=== PATIENT | male | born 1955 | race Caucasian/White ===

== ENCOUNTER 2017-04-15 10:30 | Outpatient (RCR) | payer MEDICARE, MEDICAID, SELFPAY ==
[2017-03-16 00:23] VITALS: BP 159/78; PULSE 76; RESP 20; TEMP 36.5
[2017-03-18 14:51] VITALS: BP 174/81; PULSE 84; RESP 20; TEMP 36.6
--- NOTE | 2017-03-18 17:30 | PCM.WC.PN ---
(1) Chronic ulcer of left foot with fat layer exposed Status: Chronic Current Visit: Yes Code(s): L97.522 - Non-pressure chronic ulcer of other part of left foot with fat layer exposed (2) Ulcer of right lower extremity with fat layer exposed Status: Chronic Current Visit: Yes Code(s): L97.912 - Non-pressure chronic ulcer of unspecified part of right lower leg with fat layer exposed (3) Ulcer of right lower extremity with fat layer exposed Status: Chronic Current Visit: Yes Code(s): L97.912 - Non-pressure chronic ulcer of unspecified part of right lower leg with fat layer exposed (4) Type 2 diabetes mellitus with diabetic polyneuropathy Status: Chronic Current Visit: Yes Code(s): E11.42 - Type 2 diabetes mellitus with diabetic polyneuropathy (5) Malnutrition Status: Chronic Current Visit: Yes Code(s): E46 - Unspecified protein-calorie malnutrition (6) Lower extremity edema Status: Chronic Current Visit: Yes Code(s): R60.0 - Localized edema Type of Wound Date of Service: 03/18/17 Chief Complaint: Right heel ulcer with delayed healing. 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 right leg ulcers History of Wound: This 61 year old male was seen for right heel ulcer with chronic osteomyelitis and for left s/p transmetatarsal amputation with complex closure and percutaneous achilles tendon lengthening performed on 08/05/2016. He denies pain. He denies fever, chill, nausea, vomiting. He reports he fired his home health and his girlfriend is changing his wound dressings. Progress of Wound: Improving bilateral foot. Improving ulcers to right leg - Physical Exam Vital Signs Temp Pulse Resp BP 97.8 F 84 20 H 174/81 H 03/18/17 14:51 03/18/17 14:51 03/18/17 14:51 03/18/17 14:51 General: Alert, Oriented x3, Cooperative Extremities: No cyanosis, Capillary Refill Less than 3 Seconds, No Calf Tenderness - Negative Keara and Simmons sign bilateral, Diminished Peripheral Pulses, Edema - Lateral lower extremities deep Skin: Ulcer/ Wound - No purulence, no erythema, no streaking, no maceration, no necrosis, no acute signs of infection bilateral. No exposed deep bone or other tissue. His skin is atrophic and hairless bilateral Wound Measurements and Assessment - Nurse 1 - General Ulcer Measurement Start: 03/18/17 14:50 Freq: Status: Active Protocol: Activity Type Activity Date Activity User E-Sign Co-Sign Detail Recorded Client Recorded Date Recorded By Document 03/18/17 14:51 DL [id number] 03/18/17 15:09 DL 03/18/17 14:51 Wound Center Nurse 1 [Ulcer Assessment Protocol: XIMENA.WD.LOC] 8-right cluster bernstein -Current Size (cm) - Length 2 -Current Size (cm) - Width 2.3 -Current Size (cm) - Depth 0.2 -Total Square Cm 4.6 -Photo Taken No -Exudate Amt Small (1-33%) -Exudate Type Serosanguineous -Wound Margin Distinct, Outline Attached -Granulation Amt Large (67-100%) -Granulation Quality Slater[place] -Necrosis Amt Small (1-33%) -Necrotic Tissue Type Adherent Slough -Structure Exposed N/A -Texture (Susy-wound Skin Appearance) Scarring -Moisture (Susy-wound Skin Appearance Dry/Scaly ) -Color (Susy-wound Skin Appearance) Hemosiderin Staining -Temperature (Susy-wound Skin No Abnormality Appearance) (Pt Warm) -Ulcer Cleansing Wound Cleanser -Foul Odor after Cleansing No -Anesthetic Used 4% Lidocaine Solution #4 Left central TMA -Current Size (cm) - Length 0.4 -Current Size (cm) - Width 0.3 -Current Size (cm) - Depth 0.1 -Total Square Cm 0.12 -Photo Taken No -Exudate Amt Small (1-33%) -Exudate Type Serosanguineous -Wound Margin Distinct, Outline Attached -Granulation Amt Small (1-33%) -Granulation Quality [place] -Necrosis Amt Small (1-33%) -Necrotic Tissue Type Adherent Slough -Structure Exposed N/A -Texture (Susy-wound Skin Appearance) Scarring -Moisture (Susy-wound Skin Appearance No Abnormality ) Dry/Scaly -Color (Susy-wound Skin Appearance) No Abnormality -Temperature (Susy-wound Skin No Abnormality Appearance) (Pt Warm) -Ulcer Cleansing Wound Cleanser -Foul Odor after Cleansing No -Anesthetic Used 4% Lidocaine Solution #1 right medial heel -Current Size (cm) - Length 1.5 -Current Size (cm) - Width 4.2 -Current Size (cm) - Depth 0.2 -Total Square Cm 6.30 -Photo Taken No -Exudate Amt Small (1-33%) -Exudate Type Serosanguineous -Wound Margin Thickened -Granulation Amt Medium (34-66%) -Granulation Quality [place] -Necrosis Amt Medium (34-66%) -Necrotic Tissue Type Adherent Slough -Structure Exposed N/A -Texture (Susy-wound Skin Appearance) Scarring -Moisture (Susy-wound Skin Appearance Maceration ) -Color (Susy-wound Skin Appearance) No Abnormality -Temperature (Susy-wound Skin No Abnormality Appearance) (Pt Warm) -Ulcer Cleansing Wound Cleanser -Foul Odor after Cleansing No -Anesthetic Used 4% Lidocaine Solution [Edema Assessment] -Right Calf (cm) 45.2 -Right Ankle (cm) 27.2 -Left Calf (cm) 47 -Left Ankle (cm) 26.2 WC - Nurse 2 - General Ulcer CM Notes Start: 03/18/17 14:50 Freq: Status: Active Protocol: Activity Type Activity Date Activity User E-Sign Co-Sign Detail Recorded Client Recorded Date Recorded By Document 03/18/17 15:18 [id number] 03/18/17 15:33 TM 03/18/17 15:18 Wound Center Nurse 2 [Procedure/Treatment] 8-right cluster bernstein -Time 15:29 -Correct Patient Yes -Correct Side, Site, Position Yes -Correct Procedure Yes -Procedure Performed Yes -Type of Procedure Debridement -Clinical Debridement Subcutaneous -Post Debridement Size (cm) - Length 2.1 -Post Debridement Size (cm) - Width 2.4 -Post Debridement Size (cm) - Depth 0.2 -Total Square Cm 5.04 -Wound/Ulcer Outcome Not Healed -Ulcer Cleansing Rinsed/ Irrigated with Saline -Foul Odor after Cleansing No -Bioengineered Tissue Yes -Type of bioengineered Tissue [id number] -Expiration Date 07/07/18 -Product Lot Number [id number] -Percent Used 33 -Saline Lot Number [id number] -Cetacaine [place] No -Topical Lidocaine (%) 5 -Bleeding Controlled with Pressure -Treatment Response Procedure Tolerated Well #4 Left central TMA -Time 15:30 -Correct Patient Yes -Correct Side, Site, Position Yes -Correct Procedure Yes -Procedure Performed Yes -Type of Procedure Debridement -Clinical Debridement Subcutaneous -Post Debridement Size (cm) - Length 0.5 -Post Debridement Size (cm) - Width 0.4 -Post Debridement Size (cm) - Depth 0.1 -Total Square Cm 0.20 -Wound/Ulcer Outcome Not Healed -Ulcer Cleansing Rinsed/ Irrigated with Saline -Foul Odor after Cleansing No -Bioengineered Tissue Yes -Type of bioengineered Tissue [id number] -Expiration Date 07/07/18 -Product Lot Number [id number] -Percent Used 33 -Saline Lot Number [id number] -Cetacaine [place] No -Topical Lidocaine (%) 5 -Bleeding Controlled with Pressure -Treatment Response Procedure Tolerated Well #1 right medial heel -Time 15:31 -Correct Patient Yes -Correct Side, Site, Position Yes -Correct Procedure Yes -Procedure Performed Yes -Type of Procedure Debridement -Clinical Debridement Subcutaneous -Post Debridement Size (cm) - Length 1.6 -Post Debridement Size (cm) - Width 4.3 -Post Debridement Size (cm) - Depth 0.2 -Total Square Cm 6.88 -Wound/Ulcer Outcome Not Healed -Ulcer Cleansing Rinsed/ Irrigated with Saline -Foul Odor after Cleansing No -Bioengineered Tissue Yes -Type of bioengineered Tissue [id number] -Expiration Date 07/07/18 -Product Lot Number [id number] -Percent Used 33 -Saline Lot Number [id number] -Cetacaine [place] No -Topical Lidocaine (%) 5 -Bleeding Controlled with Pressure -Treatment Response Procedure Tolerated Well [See Physician Procedure note for Specifics] Pain Scale: 0-10 Numeric [Pain] -Is Patient Pain Free? Yes Musculoskeletal: No Tenderness to Palpation of Joints or Extremities, Muscle Wasting, - - Left transmetatarsal amputation Neurological: - - Lack of epicritic sensation light touch bilateral lower extremities Psych/Mental Status: Normal Affect, Appropriate Debridement Note Post-Debridement Measurements/Treatment WC - Nurse 2 - General Ulcer CM Notes Start: 03/18/17 14:50 Freq: Status: Active Protocol: Activity Type Activity Date Activity User E-Sign Co-Sign Detail Recorded Client Recorded Date Recorded By Document 03/18/17 15:18 TM [id number] 03/18/17 15:33 TM 01/03/18 15:18 Wound Center Nurse 2 8-right cluster bernstein -Time 15:29 -Correct Patient Yes -Correct Side, Site, Position Yes -Correct Procedure Yes -Procedure Performed Yes -Type of Procedure Debridement -Clinical Debridement Subcutaneous -Post Debridement Size (cm) - Length 2.1 -Post Debridement Size (cm) - Width 2.4 -Post Debridement Size (cm) - Depth 0.2 -Total Square Cm 5.04 -Wound/Ulcer Outcome Not Healed -Ulcer Cleansing Rinsed/ Irrigated with Saline -Foul Odor after Cleansing No -Bioengineered Tissue Yes -Type of bioengineered Tissue [id number] -Expiration Date 07/07/18 -Product Lot Number [id number] -Percent Used 33 -Saline Lot Number [id number] -Cetacaine [place] No -Topical Lidocaine (%) 5 -Bleeding Controlled with Pressure -Treatment Response Procedure Tolerated Well #4 Left central TMA -Time 15:30 -Correct Patient Yes -Correct Side, Site, Position Yes -Correct Procedure Yes -Procedure Performed Yes -Type of Procedure Debridement -Clinical Debridement Subcutaneous -Post Debridement Size (cm) - Length 0.5 -Post Debridement Size (cm) - Width 0.4 -Post Debridement Size (cm) - Depth 0.1 -Total Square Cm 0.20 -Wound/Ulcer Outcome Not Healed -Ulcer Cleansing Rinsed/ Irrigated with Saline -Foul Odor after Cleansing No -Bioengineered Tissue Yes -Type of bioengineered Tissue [id number] -Expiration Date 07/07/18 -Product Lot Number [id number] -Percent Used 33 -Saline Lot Number [id number] -Cetacaine [place] No -Topical Lidocaine (%) 5 -Bleeding Controlled with Pressure -Treatment Response Procedure Tolerated Well #1 right medial heel -Time 15:31 -Correct Patient Yes -Correct Side, Site, Position Yes -Correct Procedure Yes -Procedure Performed Yes -Type of Procedure Debridement -Clinical Debridement Subcutaneous -Post Debridement Size (cm) - Length 1.6 -Post Debridement Size (cm) - Width 4.3 -Post Debridement Size (cm) - Depth 0.2 -Total Square Cm 6.88 -Wound/Ulcer Outcome Not Healed -Ulcer Cleansing Rinsed/ Irrigated with Saline -Foul Odor after Cleansing No -Bioengineered Tissue Yes -Type of bioengineered Tissue [id number] -Expiration Date 07/07/18 -Product Lot Number [id number] -Percent Used 33 -Saline Lot Number [id number] -Cetacaine [place] No -Topical Lidocaine (%) 5 -Bleeding Controlled with Pressure -Treatment Response Procedure Tolerated Well Pain Scale: 0-10 Numeric Is Patient Pain Free? Yes Wound debrided: Transmetatarsal amputation stump site Laterality: Left Wound Grade/Stage: Grade 1 Type of Debridement: Excisional debridement Anesthesia Used: 4% Lidocaine Solution Depth: in the subcutaneous layer Percentage of wound debrided: 100 Instrument Used: 5mm curette Tissue Removed: Fibrous, devitalized subcutaneous, biofilm, slough Severity: Fat Layer Exposed Amount of bleeding with debridement: Mild Bleeding Controlled with: Pressure Patient tolerated procedure well - Additional Wound Wound debrided: Posterior plantar heel Laterality: Right Wound Grade/Stage: Grade 3 Type of Debridement: Excisional debridement Anesthesia Used: 4% Lidocaine Solution Depth: in the subcutaneous layer Percentage of wound debrided: 100 Instrument Used: 5mm curette Tissue Removed: Fibrous, devitalized subcutaneous, biofilm, slough Severity: Fat Layer Exposed Amount of bleeding with debridement: Mild Bleeding Controlled with: Pressure Patient tolerated procedure: Patient tolerated procedure well - Additional Wound Wound debrided: Leg Laterality: Right Wound Grade/Stage: Grade 1 Type of Debridement: Excisional debridement Anesthesia Used: 4% Lidocaine Solution Depth: in the subcutaneous layer Percentage of wound debrided: 100 Instrument Used: 5mm curette Tissue Removed: Fibrous, devitalized subcutaneous, biofilm, slough Severity: Fat Layer Exposed Amount of bleeding with debridement: Mild Bleeding Controlled with: Pressure Patient tolerated procedure: Patient tolerated procedure well Assessment/Plan Active Problems Chronic ulcer of left foot with fat layer exposed (Chronic) Ulcer of right lower extremity with fat layer exposed (Chronic) Ulcer of right lower extremity with fat layer exposed (Chronic) Type 2 diabetes mellitus with diabetic polyneuropathy (Chronic) Malnutrition (Chronic) Lower extremity edema (Chronic) Assessment: right leg ulcers-stable. right diabetic heel ulcer with fat exposed and medically treated osteomyelitis of the calcaneus -medically treated. Left foot ulcer with fat exposed. s/p left transmetatarsal amputation with complex closure and percutaneous achilles tendon lengthening performed on 08/05/2016. This was performed secondary to abscess/septic joint/left foot infected ulceration - dehisced and ulcer now central and lateral (considered grade 1). edema/venous insufficiency. diabetic neuropathy. delayed healing / malnutrition. obesity. non compliance Plan: I discussed his case and treatment plan. Subcutaneous excisional debridement of the right heel ulcer, right leg, and left foot ulcer was performed today as noted in the clinical panel. It is noted he completed a full course of advanced wound care product, epifix,application. He was preapproved for puraply, and advanced wound care product with collagen and antimicrobial agent. This was applied after also debridement as noted in the clinical panel, verbal consent, saline irrigation. The product was secured in place with Steri-Strips and wound veil. I recommend continued home nursing care daily change the outer dressing with Aquacel Ag due to his moderate to high level of usual drainage. . To maintain improved skin integrity by applying lac hydrin lotion to both legs daily. Continue circaid wraps bilateral legs daily; it is okay to apply Mateus wrap instead of the CircAid foot wrap to better keep his wound dressings in place. These are temporarily lost during his most recent hospitalization and he has since retrieved these items and resumed use. To continue diuretic medications per primary care physician.To elevate legs at rest. Compliance is imperative and this was discussed again today. To follow-up with Dr. Jimenez as advised for venous intervention after he resumes more walking and loses weight. Input is appreciated for arterial and venous evaluation. To continue with portion control for weight loss and proper glycemic control and nutritional supplementation to optimize healing. His hemoglobin A1c went from 9.0 to 7.4. I previously recommended Vu and a prescription was provided; he was advised to take this twice daily. All of his questions were answered. He understands he is still at risk for limb loss. RTC one week or call sooner if there are problems.
--- NOTE | 2017-03-18 17:35 | PN.PCM_ITS ---
(1) Chronic ulcer of left foot with fat layer exposed Status: Chronic Current Visit: Yes Code(s): L97.522 - Non-pressure chronic ulcer of other part of left foot with fat layer exposed (2) Ulcer of right lower extremity with fat layer exposed Status: Chronic Current Visit: Yes Code(s): L97.912 - Non-pressure chronic ulcer of unspecified part of right lower leg with fat layer exposed (3) Ulcer of right lower extremity with fat layer exposed Status: Chronic Current Visit: Yes Code(s): L97.912 - Non-pressure chronic ulcer of unspecified part of right lower leg with fat layer exposed (4) Type 2 diabetes mellitus with diabetic polyneuropathy Status: Chronic Current Visit: Yes Code(s): E11.42 - Type 2 diabetes mellitus with diabetic polyneuropathy (5) Malnutrition Status: Chronic Current Visit: Yes Code(s): E46 - Unspecified protein- calorie malnutrition (6) Lower extremity edema Status: Chronic Current Visit: Yes Code(s): R60.0 - Localized edema Type of Wound Date of Service: 03/18/17 Chief Complaint: Right heel ulcer with delayed healing. 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 right leg ulcers History of Wound: This 61 year old male was seen for right heel ulcer with chronic osteomyelitis and for left s/p transmetatarsal amputation with complex closure and percutaneous achilles tendon lengthening performed on 08/05/2016. He denies pain. He denies fever, chill, nausea, vomiting. He reports he fired his home health and his girlfriend is changing his wound dressings. Progress of Wound: Improving bilateral foot. Improving ulcers to right leg - Physical Exam Vital Signs Temp Pulse Resp BP 97.8 F 84 20 H 174/81 H 03/18/17 14:51 03/18/17 14:51 03/18/17 14:51 03/18/17 14:51 General: Alert, Oriented x3, Cooperative Extremities: No cyanosis, Capillary Refill Less than 3 Seconds, No Calf Tenderness - Negative Keara and Simmons sign bilateral, Diminished Peripheral Pulses, Edema - Lateral lower extremities deep Skin: Ulcer/ Wound - No purulence, no erythema, no streaking, no maceration, no necrosis, no acute signs of infection bilateral. No exposed deep bone or other tissue. His skin is atrophic and hairless bilateral Wound Measurements and Assessment - Nurse 1 - General Ulcer Measurement Start: 03/18/17 14:50 Freq: Status: Active Protocol: Activity Type Activity Date Activity User E-Sign Co-Sign Detail Recorded Client Recorded Date Recorded By Document 03/18/17 14:51 DL [id number] 03/18/17 15:09 DL 03/18/17 14:51 Wound Center Nurse 1 [Ulcer Assessment Protocol: XIMENA.WD.LOC] 8-right cluster bernstein -Current Size (cm) - Length 2 -Current Size (cm) - Width 2.3 -Current Size (cm) - Depth 0.2 -Total Square Cm 4.6 -Photo Taken No -Exudate Amt Small (1-33%) -Exudate Type Serosanguineous -Wound Margin Distinct, Outline Attached -Granulation Amt Large (67-100%) -Granulation Quality [place] -Necrosis Amt Small (1-33%) -Necrotic Tissue Type Adherent Slough -Structure Exposed N/A -Texture (Susy-wound Skin Appearance) Scarring -Moisture (Susy-wound Skin Appearance Dry/Scaly ) -Color (Susy-wound Skin Appearance) Hemosiderin Staining -Temperature (Susy-wound Skin No Abnormality Appearance) (Pt Warm) -Ulcer Cleansing Wound Cleanser -Foul Odor after Cleansing No -Anesthetic Used 4% Lidocaine Solution #4 Left central TMA -Current Size (cm) - Length 0.4 -Current Size (cm) - Width 0.3 -Current Size (cm) - Depth 0.1 -Total Square Cm 0.12 -Photo Taken No -Exudate Amt Small (1-33%) -Exudate Type Serosanguineous -Wound Margin Distinct, Outline Attached -Granulation Amt Small (1-33%) -Granulation Quality [place] -Necrosis Amt Small (1-33%) -Necrotic Tissue Type Adherent Slough -Structure Exposed N/A -Texture (Susy-wound Skin Appearance) Scarring -Moisture (Susy-wound Skin Appearance No Abnormality ) Dry/Scaly -Color (Susy-wound Skin Appearance) No Abnormality -Temperature (Susy-wound Skin No Abnormality Appearance) (Pt Warm) -Ulcer Cleansing Wound Cleanser -Foul Odor after Cleansing No -Anesthetic Used 4% Lidocaine Solution #1 right medial heel -Current Size (cm) - Length 1.5 -Current Size (cm) - Width 4.2 -Current Size (cm) - Depth 0.2 -Total Square Cm 6.30 -Photo Taken No -Exudate Amt Small (1-33%) -Exudate Type Serosanguineous -Wound Margin Thickened -Granulation Amt Medium (34-66%) -Granulation Quality [place] -Necrosis Amt Medium (34-66%) -Necrotic Tissue Type Adherent Slough -Structure Exposed N/A -Texture (Susy-wound Skin Appearance) Scarring -Moisture (Susy-wound Skin Appearance Maceration ) -Color (Susy-wound Skin Appearance) No Abnormality -Temperature (Susy-wound Skin No Abnormality Appearance) (Pt Warm) -Ulcer Cleansing Wound Cleanser -Foul Odor after Cleansing No -Anesthetic Used 4% Lidocaine Solution [Edema Assessment] -Right Calf (cm) 45.2 -Right Ankle (cm) 27.2 -Left Calf (cm) 47 -Left Ankle (cm) 26.2 WC - Nurse 2 - General Ulcer CM Notes Start: 03/18/17 14:50 Freq: Status: Active Protocol: Activity Type Activity Date Activity User E-Sign Co-Sign Detail Recorded Client Recorded Date Recorded By Document 03/18/17 15:18 [id number] 03/18/17 15:33 TM 03/18/17 15:18 Wound Center Nurse 2 [Procedure/Treatment] 8-right cluster bernstein -Time 15:29 -Correct Patient Yes -Correct Side, Site, Position Yes -Correct Procedure Yes -Procedure Performed Yes -Type of Procedure Debridement -Clinical Debridement Subcutaneous -Post Debridement Size (cm) - Length 2.1 -Post Debridement Size (cm) - Width 2.4 -Post Debridement Size (cm) - Depth 0.2 -Total Square Cm 5.04 -Wound/Ulcer Outcome Not Healed -Ulcer Cleansing Rinsed/ Irrigated with Saline -Foul Odor after Cleansing No -Bioengineered Tissue Yes -Type of bioengineered Tissue [id number] -Expiration Date 07/07/18 -Product Lot Number [id number] -Percent Used 33 -Saline Lot Number [id number] -Cetacaine [place] No -Topical Lidocaine (%) 5 -Bleeding Controlled with Pressure -Treatment Response Procedure Tolerated Well #4 Left central TMA -Time 15:30 -Correct Patient Yes -Correct Side, Site, Position Yes -Correct Procedure Yes -Procedure Performed Yes -Type of Procedure Debridement -Clinical Debridement Subcutaneous -Post Debridement Size (cm) - Length 0.5 -Post Debridement Size (cm) - Width 0.4 -Post Debridement Size (cm) - Depth 0.1 -Total Square Cm 0.20 -Wound/Ulcer Outcome Not Healed -Ulcer Cleansing Rinsed/ Irrigated with Saline -Foul Odor after Cleansing No -Bioengineered Tissue Yes -Type of bioengineered Tissue [id number] -Expiration Date 07/07/18 -Product Lot Number [id number] -Percent Used 33 -Saline Lot Number [id number] -Cetacaine [place] No -Topical Lidocaine (%) 5 -Bleeding Controlled with Pressure -Treatment Response Procedure Tolerated Well #1 right medial heel -Time 15:31 -Correct Patient Yes -Correct Side, Site, Position Yes -Correct Procedure Yes -Procedure Performed Yes -Type of Procedure Debridement -Clinical Debridement Subcutaneous -Post Debridement Size (cm) - Length 1.6 -Post Debridement Size (cm) - Width 4.3 -Post Debridement Size (cm) - Depth 0.2 -Total Square Cm 6.88 -Wound/Ulcer Outcome Not Healed -Ulcer Cleansing Rinsed/ Irrigated with Saline -Foul Odor after Cleansing No -Bioengineered Tissue Yes -Type of bioengineered Tissue [id number] -Expiration Date 07/07/18 -Product Lot Number [id number] -Percent Used 33 -Saline Lot Number [id number] -Cetacaine [place] No -Topical Lidocaine (%) 5 -Bleeding Controlled with Pressure -Treatment Response Procedure Tolerated Well [See Physician Procedure note for Specifics] Pain Scale: 0-10 Numeric [Pain] -Is Patient Pain Free? Yes Musculoskeletal: No Tenderness to Palpation of Joints or Extremities, Muscle Wasting, - - Left transmetatarsal amputation Neurological: - - Lack of epicritic sensation light touch bilateral lower extremities Psych/Mental Status: Normal Affect, Appropriate Debridement Note Post-Debridement Measurements/Treatment WC - Nurse 2 - General Ulcer CM Notes Start: 03/18/17 14:50 Freq: Status: Active Protocol: Activity Type Activity Date Activity User E-Sign Co-Sign Detail Recorded Client Recorded Date Recorded By Document 03/18/17 15:18 TM [id number] 03/18/17 15:33 TM 01/03/18 15:18 Wound Center Nurse 2 8-right cluster bernstein -Time 15:29 -Correct Patient Yes -Correct Side, Site, Position Yes -Correct Procedure Yes -Procedure Performed Yes -Type of Procedure Debridement -Clinical Debridement Subcutaneous -Post Debridement Size (cm) - Length 2.1 -Post Debridement Size (cm) - Width 2.4 -Post Debridement Size (cm) - Depth 0.2 -Total Square Cm 5.04 -Wound/Ulcer Outcome Not Healed -Ulcer Cleansing Rinsed/ Irrigated with Saline -Foul Odor after Cleansing No -Bioengineered Tissue Yes -Type of bioengineered Tissue [id number] -Expiration Date 07/07/18 -Product Lot Number [id number] -Percent Used 33 -Saline Lot Number [id number] -Cetacaine [place] No -Topical Lidocaine (%) 5 -Bleeding Controlled with Pressure -Treatment Response Procedure Tolerated Well #4 Left central TMA -Time 15:30 -Correct Patient Yes -Correct Side, Site, Position Yes -Correct Procedure Yes -Procedure Performed Yes -Type of Procedure Debridement -Clinical Debridement Subcutaneous -Post Debridement Size (cm) - Length 0.5 -Post Debridement Size (cm) - Width 0.4 -Post Debridement Size (cm) - Depth 0.1 -Total Square Cm 0.20 -Wound/Ulcer Outcome Not Healed -Ulcer Cleansing Rinsed/ Irrigated with Saline -Foul Odor after Cleansing No -Bioengineered Tissue Yes -Type of bioengineered Tissue [id number] -Expiration Date 07/07/18 -Product Lot Number [id number] -Percent Used 33 -Saline Lot Number [id number] -Cetacaine [place] No -Topical Lidocaine (%) 5 -Bleeding Controlled with Pressure -Treatment Response Procedure Tolerated Well #1 right medial heel -Time 15:31 -Correct Patient Yes -Correct Side, Site, Position Yes -Correct Procedure Yes -Procedure Performed Yes -Type of Procedure Debridement -Clinical Debridement Subcutaneous -Post Debridement Size (cm) - Length 1.6 -Post Debridement Size (cm) - Width 4.3 -Post Debridement Size (cm) - Depth 0.2 -Total Square Cm 6.88 -Wound/Ulcer Outcome Not Healed -Ulcer Cleansing Rinsed/ Irrigated with Saline -Foul Odor after Cleansing No -Bioengineered Tissue Yes -Type of bioengineered Tissue [id number] -Expiration Date 07/07/18 -Product Lot Number [id number] -Percent Used 33 -Saline Lot Number [id number] -Cetacaine [place] No -Topical Lidocaine (%) 5 -Bleeding Controlled with Pressure -Treatment Response Procedure Tolerated Well Pain Scale: 0-10 Numeric Is Patient Pain Free? Yes Wound debrided: Transmetatarsal amputation stump site Laterality: Left Wound Grade/Stage: Grade 1 Type of Debridement: Excisional debridement Anesthesia Used: 4% Lidocaine Solution Depth: in the subcutaneous layer Percentage of wound debrided: 100 Instrument Used: 5mm curette Tissue Removed: Fibrous, devitalized subcutaneous, biofilm, slough Severity: Fat Layer Exposed Amount of bleeding with debridement: Mild Bleeding Controlled with: Pressure Patient tolerated procedure well - Additional Wound Wound debrided: Posterior plantar heel Laterality: Right Wound Grade/Stage: Grade 3 Type of Debridement: Excisional debridement Anesthesia Used: 4% Lidocaine Solution Depth: in the subcutaneous layer Percentage of wound debrided: 100 Instrument Used: 5mm curette Tissue Removed: Fibrous, devitalized subcutaneous, biofilm, slough Severity: Fat Layer Exposed Amount of bleeding with debridement: Mild Bleeding Controlled with: Pressure Patient tolerated procedure: Patient tolerated procedure well - Additional Wound Wound debrided: Leg Laterality: Right Wound Grade/Stage: Grade 1 Type of Debridement: Excisional debridement Anesthesia Used: 4% Lidocaine Solution Depth: in the subcutaneous layer Percentage of wound debrided: 100 Instrument Used: 5mm curette Tissue Removed: Fibrous, devitalized subcutaneous, biofilm, slough Severity: Fat Layer Exposed Amount of bleeding with debridement: Mild Bleeding Controlled with: Pressure Patient tolerated procedure: Patient tolerated procedure well Assessment/Plan Active Problems Chronic ulcer of left foot with fat layer exposed (Chronic) Ulcer of right lower extremity with fat layer exposed (Chronic) Ulcer of right lower extremity with fat layer exposed (Chronic) Type 2 diabetes mellitus with diabetic polyneuropathy (Chronic) Malnutrition (Chronic) Lower extremity edema (Chronic) Assessment: right leg ulcers-stable. right diabetic heel ulcer with fat exposed and medically treated osteomyelitis of the calcaneus -medically treated. Left foot ulcer with fat exposed. s/p left transmetatarsal amputation with complex closure and percutaneous achilles tendon lengthening performed on 08/05/2016. This was performed secondary to abscess/septic joint/ left foot infected ulceration - dehisced and ulcer now central and lateral ( considered grade 1). edema/venous insufficiency. diabetic neuropathy. delayed healing / malnutrition. obesity. non compliance Plan: I discussed his case and treatment plan. Subcutaneous excisional debridement of the right heel ulcer, right leg, and left foot ulcer was performed today as noted in the clinical panel. It is noted he completed a full course of advanced wound care product, epifix,application. He was preapproved for puraply, and advanced wound care product with collagen and antimicrobial agent. This was applied after also debridement as noted in the clinical panel, verbal consent, saline irrigation. The product was secured in place with Steri-Strips and wound veil. I recommend continued home nursing care daily change the outer dressing with Aquacel Ag due to his moderate to high level of usual drainage. . To maintain improved skin integrity by applying lac hydrin lotion to both legs daily. Continue circaid wraps bilateral legs daily; it is okay to apply Mateus wrap instead of the CircAid foot wrap to better keep his wound dressings in place. These are temporarily lost during his most recent hospitalization and he has since retrieved these items and resumed use. To continue diuretic medications per primary care physician.To elevate legs at rest. Compliance is imperative and this was discussed again today. To follow-up with Dr. Jimenez as advised for venous intervention after he resumes more walking and loses weight. Input is appreciated for arterial and venous evaluation. To continue with portion control for weight loss and proper glycemic control and nutritional supplementation to optimize healing. His hemoglobin A1c went from 9.0 to 7.4. I previously recommended Vu and a prescription was provided; he was advised to take this twice daily. All of his questions were answered. He understands he is still at risk for limb loss. RTC one week or call sooner if there are problems.
[2017-04-01 14:16] VITALS: RESP 18; TEMP 36.3
--- NOTE | 2017-04-01 21:27 | PN.PCM_ITS ---
(1) Chronic ulcer of left foot with fat layer exposed Status: Chronic Code(s): L97.522 - Non-pressure chronic ulcer of other part of left foot with fat layer exposed (2) Ulcer of right lower extremity with fat layer exposed Status: Chronic Code(s): L97.912 - Non-pressure chronic ulcer of unspecified part of right lower leg with fat layer exposed (3) Ulcer of right lower extremity with fat layer exposed Status: Chronic Code(s): L97.912 - Non-pressure chronic ulcer of unspecified part of right lower leg with fat layer exposed (4) Type 2 diabetes mellitus with diabetic polyneuropathy Status: Chronic Code(s): E11.42 - Type 2 diabetes mellitus with diabetic polyneuropathy (5) Malnutrition Status: Chronic Code(s): E46 - Unspecified protein-calorie malnutrition (6) Lower extremity edema Status: Chronic Code(s): R60.0 - Localized edema Type of Wound Date of Service: 04/04/17 Chief Complaint: Right heel ulcer with delayed healing. 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 right leg ulcers History of Wound: This 61 year old male was seen for right heel ulcer with chronic osteomyelitis and for left s/p transmetatarsal amputation with complex closure and percutaneous achilles tendon lengthening performed on 08/05/2016. He denies pain. He denies fever, chill, nausea, vomiting. Progress of Wound: Improving bilateral foot. Improving ulcers to right leg - Physical Exam Vital Signs Temp Pulse Resp BP 97.3 F L 84 18 174/81 H 04/01/17 14:16 03/18/17 14:51 04/01/17 14:16 03/18/17 14:51 General: Alert, Oriented x3, Cooperative Extremities: No cyanosis, Capillary Refill Less than 3 Seconds, No Calf Tenderness - Negative Keara and Simmons bilateral, Diminished Peripheral Pulses Skin: Ulcer/ Wound - No purulence, no erythema, streaking, odor, no infection bilateral, - - The skin is atrophic and here with bilateral Wound Measurements and Assessment WC - Nurse 1 - General Ulcer Measurement Start: 03/18/17 14:50 Freq: Status: Active Protocol: Activity Type Activity Date Activity User E-Sign Co-Sign Detail Recorded Client Recorded Date Recorded By Document 04/01/17 14:16 [facility] [id number] 04/01/17 14:30 [facility] 04/01/17 14:16 Wound Center Nurse 1 [Ulcer Assessment Protocol: WC.WD.LOC] 8-right cluster bernstein -Combined with other wound No -Current Size (cm) - Length 8.5 -Current Size (cm) - Width 6.5 -Current Size (cm) - Depth 0.1 -Total Square Cm 55.25 -Photo Taken No -Epithelialization None Present -Tunneling No -Undermining/Tunneling No -Exudate Amt Medium (34-66%) -Exudate Type Serosanguineous -Wound Margin Distinct, Outline Attached -Granulation Amt Large (67-100%) -Granulation Quality Red -Slough/Fibrin No -Necrosis Amt None Present (0 %) -Structure Exposed None/Limited to Skin Breakdown -Texture (Susy-wound Skin Appearance) Scarring -Moisture (Susy-wound Skin Appearance Dry/Scaly ) -Color (Susy-wound Skin Appearance) Hemosiderin Staining -Temperature (Susy-wound Skin No Abnormality Appearance) (Pt Warm) -Tenderness on Palpation (Susy-wound No Skin Appearance) -Ulcer Cleansing Wound Cleanser -Foul Odor after Cleansing No -Anesthetic Used 4% Lidocaine Solution #4 Left central TMA -Combined with other wound No -Current Size (cm) - Length 1.2 -Current Size (cm) - Width 0.4 -Current Size (cm) - Depth 0.3 -Total Square Cm 0.48 -Photo Taken No -Epithelialization None Present -Tunneling No -Undermining/Tunneling No -Exudate Amt Small (1-33%) -Exudate Type Serosanguineous -Wound Margin Distinct, Outline Attached -Granulation Amt Large (67-100%) -Granulation Quality Red -Slough/Fibrin Yes -Necrosis Amt Small (1-33%) -Necrotic Tissue Type Adherent Slough -Texture (Susy-wound Skin Appearance) Callus Scarring -Moisture (Susy-wound Skin Appearance Maceration ) Dry/Scaly -Color (Susy-wound Skin Appearance) Palor -Temperature (Susy-wound Skin No Abnormality Appearance) (Pt Warm) -Tenderness on Palpation (Susy-wound No Skin Appearance) -Ulcer Cleansing Wound Cleanser -Foul Odor after Cleansing No -Anesthetic Used 4% Lidocaine Solution #1 right medial heel -Combined with other wound No -Current Size (cm) - Length 1.5 -Current Size (cm) - Width 4.4 -Current Size (cm) - Depth 0.2 -Total Square Cm 6.60 -Photo Taken No -Epithelialization None Present -Tunneling No -Undermining/Tunneling No -Exudate Amt Medium (34-66%) -Exudate Type Serosanguineous -Wound Margin Distinct, Outline Attached -Granulation Amt Large (67-100%) -Granulation Quality Pale Red -Slough/Fibrin No -Necrosis Amt None Present (0 %) -Structure Exposed None/Limited to Skin Breakdown -Texture (Susy-wound Skin Appearance) Callus Scarring -Moisture (Susy-wound Skin Appearance Maceration ) Dry/Scaly -Color (Susy-wound Skin Appearance) Palor -Temperature (Susy-wound Skin No Abnormality Appearance) (Pt Warm) -Tenderness on Palpation (Susy-wound No Skin Appearance) -Ulcer Cleansing Wound Cleanser -Foul Odor after Cleansing No -Anesthetic Used 4% Lidocaine Solution [Edema Assessment] -Lower Limb Edema Present Yes -Right Calf (cm) 51.4 -Right Ankle (cm) 27.5 -Left Calf (cm) 50.9 -Left Ankle (cm) 26.5 WC - Nurse 2 - General Ulcer CM Notes Start: 03/18/17 14:50 Freq: Status: Active Protocol: Activity Type Activity Date Activity User E-Sign Co-Sign Detail Recorded Client Recorded Date Recorded By Document 04/01/17 15:13 [id number] 04/01/17 15:17 04/01/17 15:13 Wound Center Nurse 2 [Procedure/Treatment] 8-right cluster bernstein -Time 15:14 -Correct Patient Yes -Correct Side, Site, Position Yes -Correct Procedure Yes -Procedure Performed Yes -Type of Procedure Debridement -Clinical Debridement Subcutaneous -Post Debridement Size (cm) - Length 8.5 -Post Debridement Size (cm) - Width 6.6 -Post Debridement Size (cm) - Depth 0.1 -Total Square Cm 56.10 -Wound/Ulcer Outcome Not Healed -Ulcer Cleansing Rinsed/ Irrigated with Saline -Foul Odor after Cleansing No -Bioengineered Tissue Yes -Type of bioengineered Tissue [id number] -Expiration Date 07/30/18 -Product Lot Number [id number] -Percent Used 100 -Cetacaine [place] No -Bleeding Controlled with Pressure -Treatment Response Procedure Tolerated Well #4 Left central TMA -Time 15:15 -Correct Patient Yes -Correct Side, Site, Position Yes -Correct Procedure Yes -Procedure Performed Yes -Type of Procedure Debridement -Clinical Debridement Subcutaneous -Post Debridement Size (cm) - Length 1.3 -Post Debridement Size (cm) - Width 0.5 -Post Debridement Size (cm) - Depth 0.3 -Total Square Cm 0.65 -Wound/Ulcer Outcome Not Healed -Ulcer Cleansing Rinsed/ Irrigated with Saline -Foul Odor after Cleansing No -Bioengineered Tissue Yes -Type of bioengineered Tissue [id number] -Expiration Date 07/30/18 -Product Lot Number [id number] -Percent Used 100 -Cetacaine [place] No -Bleeding Controlled with Pressure -Treatment Response Procedure Tolerated Well #1 right medial heel -Time 15:16 -Correct Patient Yes -Correct Side, Site, Position Yes -Correct Procedure Yes -Procedure Performed Yes -Type of Procedure Debridement -Clinical Debridement Subcutaneous -Post Debridement Size (cm) - Length 1.5 -Post Debridement Size (cm) - Width 4.5 -Post Debridement Size (cm) - Depth 0.2 -Total Square Cm 6.75 -Wound/Ulcer Outcome Not Healed -Ulcer Cleansing Rinsed/ Irrigated with Saline -Foul Odor after Cleansing No -Bioengineered Tissue Yes -Type of bioengineered Tissue [id number] -Expiration Date 07/30/18 -Product Lot Number [id number] -Percent Used 100 -Cetacaine [place] No -Bleeding Controlled with Pressure -Treatment Response Procedure Tolerated Well [See Physician Procedure note for Specifics] Pain Scale: 0-10 Numeric [Pain] -Is Patient Pain Free? Yes Musculoskeletal: No Tenderness to Palpation of Joints or Extremities, Muscle Wasting, - - Left transmetatarsal amputation. Negative Keara and Simmons bilateral Neurological: - - Lack of epicritic sensation bilateral lower extremity to light touch Psych/Mental Status: Normal Affect, Appropriate Debridement Note Post-Debridement Measurements/Treatment WC - Nurse 2 - General Ulcer CM Notes Start: 03/18/17 14:50 Freq: Status: Active Protocol: Activity Type Activity Date Activity User E-Sign Co-Sign Detail Recorded Client Recorded Date Recorded By Document 01/03/18 15:18 [id number] 03/18/17 15:33 TM Document 04/01/17 15:13 [id number] 04/01/17 15:17 03/18/17 04/01/17 15:18 15:13 Wound Center Nurse 2 8-right cluster bernstein -Time 15:29 15:14 -Correct Patient Yes Yes -Correct Side, Site, Position Yes Yes -Correct Procedure Yes Yes -Procedure Performed Yes Yes -Type of Procedure Debridement Debridement -Clinical Debridement Subcutaneous Subcutaneous -Post Debridement Size (cm) - Length 2.1 8.5 -Post Debridement Size (cm) - Width 2.4 6.6 -Post Debridement Size (cm) - Depth 0.2 0.1 -Total Square Cm 5.04 56.10 -Wound/Ulcer Outcome Not Healed Not Healed -Ulcer Cleansing Rinsed/ Rinsed/ Irrigated with Irrigated with Saline Saline -Foul Odor after Cleansing No No -Bioengineered Tissue Yes Yes -Type of bioengineered Tissue [id number] -Expiration Date 07/07/18 07/30/18 -Product Lot Number [id number] -Percent Used 33 100 -Saline Lot Number [id number] -Cetacaine [place] No No -Topical Lidocaine (%) 5 -Bleeding Controlled with Pressure Pressure -Treatment Response Procedure Procedure Tolerated Well Tolerated Well #4 Left central TMA -Time 15:30 15:15 -Correct Patient Yes Yes -Correct Side, Site, Position Yes Yes -Correct Procedure Yes Yes -Procedure Performed Yes Yes -Type of Procedure Debridement Debridement -Clinical Debridement Subcutaneous Subcutaneous -Post Debridement Size (cm) - Length 0.5 1.3 -Post Debridement Size (cm) - Width 0.4 0.5 -Post Debridement Size (cm) - Depth 0.1 0.3 -Total Square Cm 0.20 0.65 -Wound/Ulcer Outcome Not Healed Not Healed -Ulcer Cleansing Rinsed/ Rinsed/ Irrigated with Irrigated with Saline Saline -Foul Odor after Cleansing No No -Bioengineered Tissue Yes Yes -Type of bioengineered Tissue [id number] -Expiration Date 07/07/18 07/30/18 -Product Lot Number [id number] -Percent Used 33 100 -Saline Lot Number [id number] -Cetacaine [place] No No -Topical Lidocaine (%) 5 -Bleeding Controlled with Pressure Pressure -Treatment Response Procedure Procedure Tolerated Well Tolerated Well #1 right medial heel -Time 15:31 15:16 -Correct Patient Yes Yes -Correct Side, Site, Position Yes Yes -Correct Procedure Yes Yes -Procedure Performed Yes Yes -Type of Procedure Debridement Debridement -Clinical Debridement Subcutaneous Subcutaneous -Post Debridement Size (cm) - Length 1.6 1.5 -Post Debridement Size (cm) - Width 4.3 4.5 -Post Debridement Size (cm) - Depth 0.2 0.2 -Total Square Cm 6.88 6.75 -Wound/Ulcer Outcome Not Healed Not Healed -Ulcer Cleansing Rinsed/ Rinsed/ Irrigated with Irrigated with Saline Saline -Foul Odor after Cleansing No No -Bioengineered Tissue Yes Yes -Type of bioengineered Tissue [id number] -Expiration Date 07/07/18 07/30/18 -Product Lot Number [id number] -Percent Used 33 100 -Saline Lot Number [id number] -Cetacaine [place] No No -Topical Lidocaine (%) 5 -Bleeding Controlled with Pressure Pressure -Treatment Response Procedure Procedure Tolerated Well Tolerated Well Pain Scale: 0-10 Numeric Is Patient Pain Free? Yes Yes Wound debrided: Leg Laterality: Right Wound Grade/Stage: Grade 1 Type of Debridement: Excisional debridement Anesthesia Used: 4% Lidocaine Solution Depth: in the subcutaneous layer Percentage of wound debrided: 100 Instrument Used: #15 blade Tissue Removed: Fibrous, devitalized subcutaneous, biofilm, slough Severity: Fat Layer Exposed Amount of bleeding with debridement: Mild Bleeding Controlled with: Pressure Patient tolerated procedure well - Additional Wound Wound debrided: Plantar posterior heel Laterality: Right Wound Grade/Stage: Grade 3 Type of Debridement: Excisional debridement Anesthesia Used: 4% Lidocaine Solution Depth: in the subcutaneous layer Percentage of wound debrided: 100 Instrument Used: #15 blade Tissue Removed: Fibrous, devitalized subcutaneous, biofilm, slough Severity: Fat Layer Exposed Amount of bleeding with debridement: Mild Bleeding Controlled with: Pressure Patient tolerated procedure: Patient tolerated procedure well - Additional Wound Wound debrided: Distal foot Laterality: Left Wound Grade/Stage: Grade 1 Type of Debridement: Excisional debridement Anesthesia Used: 4% Lidocaine Solution Depth: in the subcutaneous layer Percentage of wound debrided: 100 Instrument Used: #15 blade Tissue Removed: Fibrous, devitalized subcutaneous, biofilm, slough Severity: Fat Layer Exposed Amount of bleeding with debridement: Mild Bleeding Controlled with: Pressure Patient tolerated procedure: Patient tolerated procedure well Assessment/Plan Assessment: right leg ulcers-stable. right diabetic heel ulcer with fat exposed and medically treated osteomyelitis of the calcaneus -medically treated. Left foot ulcer with fat exposed. s/p left transmetatarsal amputation with complex closure and percutaneous achilles tendon lengthening performed on 08/05/2016. This was performed secondary to abscess/septic joint/ left foot infected ulceration - dehisced and ulcer now central and lateral ( considered grade 1). edema/venous insufficiency. diabetic neuropathy. delayed healing / malnutrition. obesity. non compliance Plan: I discussed his case and treatment plan. Subcutaneous excisional debridement of the right heel ulcer, right leg, and left foot ulcer was performed today as noted in the clinical panel. It is noted he completed a full course of advanced wound care product, epifix,application. He was preapproved for puraply, and advanced wound care product with collagen and antimicrobial agent. This was applied after also debridement as noted in the clinical panel, verbal consent, saline irrigation. The product was secured in place with Steri-Strips and wound veil. I recommend continued home nursing care daily change the outer dressing with Aquacel Ag due to his moderate to high level of usual drainage. . To maintain improved skin integrity by applying lac hydrin lotion to both legs daily. Continue circaid wraps bilateral legs daily; it is okay to apply Mateus wrap instead of the CircAid foot wrap to better keep his wound dressings in place. These are temporarily lost during his most recent hospitalization and he has since retrieved these items and resumed use. To continue diuretic medications per primary care physician.To elevate legs at rest. Compliance is imperative and this was discussed again today. To follow-up with Dr. Jimenez as advised for venous intervention after he resumes more walking and loses weight. Input is appreciated for arterial and venous evaluation. To continue with portion control for weight loss and proper glycemic control and nutritional supplementation to optimize healing. His hemoglobin A1c went from 9.0 to 7.4. he takes a way protein-based supplement at home and he was advised to continue in addition to a well-balanced nutritious diet. All of his questions were answered. He understands he is still at risk for limb loss. RTC one week or call sooner if there are problems.
--- NOTE | 2017-04-06 12:53 | WC ---
Call received from Home Health Nurse reporting malodorous drainage from Right Heal with accompanying erythema and swelling. Mr. Crane has a F/U appointment Thursday with Dr. Hernández. Media Associate notified.
[2017-04-08 08:45] VITALS: BP 156/73; PULSE 72; RESP 22; TEMP 36.1
--- NOTE | 2017-04-08 09:35 | PN.PCM_ITS ---
(1) Chronic ulcer of left foot with fat layer exposed Status: Chronic Code(s): L97.522 - Non-pressure chronic ulcer of other part of left foot with fat layer exposed (2) Ulcer of right lower extremity with fat layer exposed Status: Chronic Code(s): L97.912 - Non-pressure chronic ulcer of unspecified part of right lower leg with fat layer exposed (3) Ulcer of right lower extremity with fat layer exposed Status: Chronic Code(s): L97.912 - Non-pressure chronic ulcer of unspecified part of right lower leg with fat layer exposed (4) Type 2 diabetes mellitus with diabetic polyneuropathy Status: Chronic Code(s): E11.42 - Type 2 diabetes mellitus with diabetic polyneuropathy (5) Malnutrition Status: Chronic Code(s): E46 - Unspecified protein-calorie malnutrition (6) Lower extremity edema Status: Chronic Code(s): R60.0 - Localized edema Type of Wound Date of Service: 04/11/17 Chief Complaint: Right heel ulcer with delayed healing. 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 right leg ulcers History of Wound: This 61 year old male was seen for right heel ulcer with chronic osteomyelitis and for left foot delayed healing wound. He denies pain. He denies fever, chill, nausea, vomiting. Progress of Wound: Improving bilateral foot. Improving ulcers to right leg - Physical Exam Vital Signs Temp Pulse Resp BP 96.9 F L 72 22 H 156/73 H 04/08/17 08:45 04/08/17 08:45 04/08/17 08:45 04/08/17 08:45 General: Alert, Oriented x3, Cooperative Extremities: No cyanosis, Capillary Refill Less than 3 Seconds, No Calf Tenderness, Diminished Peripheral Pulses, Edema - Controlled, - - Left transmetatarsal amputation Skin: Ulcer/ Wound - No purulence, no erythema, no infection, no necrosis bilateral Wound Measurements and Assessment [facility] - Nurse 1 - General Ulcer Measurement Start: 03/18/17 14:50 Freq: Status: Active Protocol: Activity Type Activity Date Activity User E-Sign Co-Sign Detail Recorded Client Recorded Date Recorded By Document 04/08/17 08:45 DL [id number] 04/08/17 09:00 DL 04/08/17 08:45 Wound Center Nurse 1 [Ulcer Assessment Protocol: XIMENA.WD.LOC] 8-right cluster bernstein -Current Size (cm) - Length 7 -Current Size (cm) - Width 8.8 -Current Size (cm) - Depth 0.1 -Total Square Cm 61.6 -Photo Taken Yes -Exudate Amt Small (1-33%) -Exudate Type Serosanguineous -Wound Margin Distinct, Outline Attached -Granulation Amt Medium (34-66%) -Granulation Quality Red -Necrosis Amt Medium (34-66%) -Necrotic Tissue Type Adherent Slough -Structure Exposed N/A -Texture (Susy-wound Skin Appearance) Scarring -Moisture (Susy-wound Skin Appearance Dry/Scaly ) -Color (Susy-wound Skin Appearance) Hemosiderin Staining -Temperature (Susy-wound Skin No Abnormality Appearance) (Pt Warm) -Ulcer Cleansing Wound Cleanser -Foul Odor after Cleansing No -Anesthetic Used 4% Lidocaine Solution #4 Left central TMA -Current Size (cm) - Length 1.6 -Current Size (cm) - Width 0.4 -Current Size (cm) - Depth 0.2 -Total Square Cm 0.64 -Photo Taken Yes -Exudate Amt Small (1-33%) -Exudate Type Serosanguineous -Wound Margin Thickened -Granulation Amt Medium (34-66%) -Granulation Quality [place] -Necrosis Amt Small (1-33%) -Necrotic Tissue Type Adherent Slough -Structure Exposed N/A -Moisture (Susy-wound Skin Appearance Maceration ) Dry/Scaly -Color (Susy-wound Skin Appearance) Hemosiderin Staining -Temperature (Susy-wound Skin No Abnormality Appearance) (Pt Warm) -Ulcer Cleansing Wound Cleanser -Foul Odor after Cleansing No -Anesthetic Used 4% Lidocaine Solution #1 right medial heel -Current Size (cm) - Length 1.3 -Current Size (cm) - Width 4.4 -Current Size (cm) - Depth 0.2 -Total Square Cm 5.72 -Photo Taken Yes -Undermining/Tunneling Starts (O' 10 clock) -Undermining/Tunneling Ends (O'clock) 12 -Maximum Distance (cm) 0.2 -Exudate Amt Medium (34-66%) -Exudate Type Serosanguineous -Wound Margin Thickened -Granulation Amt Large (67-100%) -Granulation Quality Red -Necrosis Amt Small (1-33%) -Necrotic Tissue Type Adherent Slough -Structure Exposed N/A -Texture (Susy-wound Skin Appearance) Callus -Moisture (Susy-wound Skin Appearance Maceration ) Dry/Scaly -Color (Susy-wound Skin Appearance) Hemosiderin Staining -Temperature (Susy-wound Skin No Abnormality Appearance) (Pt Warm) -Ulcer Cleansing Wound Cleanser -Foul Odor after Cleansing No -Anesthetic Used 4% Lidocaine Solution [Edema Assessment] -Right Calf (cm) 50.2 -Right Ankle (cm) 26.5 -Left Calf (cm) 48 -Left Ankle (cm) 26 WC - Nurse 2 - General Ulcer CM Notes Start: 03/18/17 14:50 Freq: Status: Active Protocol: Activity Type Activity Date Activity User E-Sign Co-Sign Detail Recorded Client Recorded Date Recorded By Document 04/08/17 09:26 NORRIS [id number] 04/08/17 09:31 NORRIS 04/08/17 09:26 Wound Center Nurse 2 [Procedure/Treatment] 8-right cluster bernstein -Time 09:27 -Correct Patient Yes -Correct Side, Site, Position Yes -Correct Procedure Yes -Procedure Performed Yes -Type of Procedure Debridement -Clinical Debridement Subcutaneous -Post Debridement Size (cm) - Length 7.1 -Post Debridement Size (cm) - Width 8.8 -Post Debridement Size (cm) - Depth 0.1 -Total Square Cm 62.48 -Wound/Ulcer Outcome Not Healed -Ulcer Cleansing Rinsed/ Irrigated with Saline -Foul Odor after Cleansing Yes, Due to Product Use -Bioengineered Tissue Yes -Type of bioengineered Tissue [id number] -Expiration Date 09/06/16 -Product Lot Number [id number] -Percent Used 100 -Cetacaine [place] No -Bleeding Controlled with Pressure -Other saline [id number] -Treatment Response Procedure Tolerated Well #4 Left central TMA -Time 09:28 -Correct Patient Yes -Correct Side, Site, Position Yes -Correct Procedure Yes -Procedure Performed Yes -Type of Procedure Debridement -Clinical Debridement Subcutaneous -Post Debridement Size (cm) - Length 1.6 -Post Debridement Size (cm) - Width 0.5 -Post Debridement Size (cm) - Depth 0.2 -Total Square Cm 0.80 -Wound/Ulcer Outcome Not Healed -Ulcer Cleansing Rinsed/ Irrigated with Saline -Foul Odor after Cleansing No -Bioengineered Tissue No -Type of bioengineered Tissue [id number] -Expiration Date 07/07/18 -Product Lot Number [id number] -Percent Used 100 -Cetacaine [place] No -Bleeding Controlled with Pressure -Other [id number] -Treatment Response Procedure Tolerated Well #1 right medial heel -Time 09:29 -Correct Patient Yes -Correct Side, Site, Position Yes -Correct Procedure Yes -Procedure Performed Yes -Type of Procedure Debridement -Clinical Debridement Subcutaneous -Post Debridement Size (cm) - Length 1.4 -Post Debridement Size (cm) - Width 4.4 -Post Debridement Size (cm) - Depth 0.2 -Total Square Cm 6.16 -Wound/Ulcer Outcome Not Healed -Ulcer Cleansing Rinsed/ Irrigated with Saline -Foul Odor after Cleansing No -Bioengineered Tissue Yes -Type of bioengineered Tissue [id number] -Expiration Date 07/07/18 -Product Lot Number [id number] -Percent Used 100 -Cetacaine [place] No -Bleeding Controlled with Pressure -Other saline [id number] -Treatment Response Procedure Tolerated Well [See Physician Procedure note for Specifics] Pain Scale: 0-10 Numeric [Pain] -Is Patient Pain Free? Yes Musculoskeletal: No Tenderness to Palpation of Joints or Extremities, Muscle Wasting Neurological: - - Lack of epicritic sensation light touch bilateral Psych/Mental Status: Normal Affect, Appropriate Debridement Note Post-Debridement Measurements/Treatment WC - Nurse 2 - General Ulcer CM Notes Start: 03/18/17 14:50 Freq: Status: Active Protocol: Activity Type Activity Date Activity User E-Sign Co-Sign Detail Recorded Client Recorded Date Recorded By Document 03/18/17 15:18 [id number] 03/18/17 15:33 Document 04/01/17 15:13 [id number] 04/01/17 15:17 JF Document 04/08/17 09:26 [id number] 04/08/17 09:31 JF 03/18/17 04/01/17 04/08/17 15:18 15:13 09:26 Wound Center Nurse 2 8-right cluster bernstein -Time 15:29 15:14 09:27 -Correct Patient Yes Yes Yes -Correct Side, Site, Position Yes Yes Yes -Correct Procedure Yes Yes Yes -Procedure Performed Yes Yes Yes -Type of Procedure Debridement Debridement Debridement -Clinical Debridement Subcutaneous Subcutaneous Subcutaneous -Post Debridement Size (cm) - Length 2.1 8.5 7.1 -Post Debridement Size (cm) - Width 2.4 6.6 8.8 -Post Debridement Size (cm) - Depth 0.2 0.1 0.1 -Total Square Cm 5.04 56.10 62.48 -Wound/Ulcer Outcome Not Healed Not Healed Not Healed -Ulcer Cleansing Rinsed/ Rinsed/ Rinsed/ Irrigated with Irrigated with Irrigated with Saline Saline Saline -Foul Odor after Cleansing No No Yes, Due to Product Use -Bioengineered Tissue Yes Yes Yes -Type of bioengineered Tissue [id number] -Expiration Date 07/07/18 07/30/18 09/06/16 -Product Lot Number [id number] -Percent Used 33 100 100 -Saline Lot Number [id number] -Cetacaine [place] No No No -Topical Lidocaine (%) 5 -Bleeding Controlled with Pressure Pressure Pressure -Other saline [id number] -Treatment Response Procedure Procedure Procedure Tolerated Well Tolerated Well Tolerated Well #4 Left central TMA -Time 15:30 15:15 09:28 -Correct Patient Yes Yes Yes -Correct Side, Site, Position Yes Yes Yes -Correct Procedure Yes Yes Yes -Procedure Performed Yes Yes Yes -Type of Procedure Debridement Debridement Debridement -Clinical Debridement Subcutaneous Subcutaneous Subcutaneous -Post Debridement Size (cm) - Length 0.5 1.3 1.6 -Post Debridement Size (cm) - Width 0.4 0.5 0.5 -Post Debridement Size (cm) - Depth 0.1 0.3 0.2 -Total Square Cm 0.20 0.65 0.80 -Wound/Ulcer Outcome Not Healed Not Healed Not Healed -Ulcer Cleansing Rinsed/ Rinsed/ Rinsed/ Irrigated with Irrigated with Irrigated with Saline Saline Saline -Foul Odor after Cleansing No No No -Bioengineered Tissue Yes Yes No -Type of bioengineered Tissue [id number] -Expiration Date 07/07/18 07/30/18 07/07/18 -Product Lot Number [id number] -Percent Used 33 100 100 -Saline Lot Number [id number] -Cetacaine [place] No No No -Topical Lidocaine (%) 5 -Bleeding Controlled with Pressure Pressure Pressure -Other [id number] -Treatment Response Procedure Procedure Procedure Tolerated Well Tolerated Well Tolerated Well #1 right medial heel -Time 15:31 15:16 09:29 -Correct Patient Yes Yes Yes -Correct Side, Site, Position Yes Yes Yes -Correct Procedure Yes Yes Yes -Procedure Performed Yes Yes Yes -Type of Procedure Debridement Debridement Debridement -Clinical Debridement Subcutaneous Subcutaneous Subcutaneous -Post Debridement Size (cm) - Length 1.6 1.5 1.4 -Post Debridement Size (cm) - Width 4.3 4.5 4.4 -Post Debridement Size (cm) - Depth 0.2 0.2 0.2 -Total Square Cm 6.88 6.75 6.16 -Wound/Ulcer Outcome Not Healed Not Healed Not Healed -Ulcer Cleansing Rinsed/ Rinsed/ Rinsed/ Irrigated with Irrigated with Irrigated with Saline Saline Saline -Foul Odor after Cleansing No No No -Bioengineered Tissue Yes Yes Yes -Type of bioengineered Tissue [id number] -Expiration Date 07/07/18 07/30/18 07/07/18 -Product Lot Number [id number] -Percent Used 33 100 100 -Saline Lot Number [id number] -Cetacaine [place] No No No -Topical Lidocaine (%) 5 -Bleeding Controlled with Pressure Pressure Pressure -Other saline [id number] -Treatment Response Procedure Procedure Procedure Tolerated Well Tolerated Well Tolerated Well Pain Scale: 0-10 Numeric Is Patient Pain Free? Yes Yes Yes Wound debrided: Leg Laterality: Right Wound Grade/Stage: Grade 1 Type of Debridement: Excisional debridement Anesthesia Used: 4% Lidocaine Solution Depth: in the subcutaneous layer Percentage of wound debrided: 100 Instrument Used: #15 blade Tissue Removed: Fibrous, devitalized subcutaneous, biofilm, slough Severity: Fat Layer Exposed Amount of bleeding with debridement: Mild Bleeding Controlled with: Pressure Patient tolerated procedure well - Additional Wound Wound debrided: Heel Laterality: Right Wound Grade/Stage: Grade 3 Type of Debridement: Excisional debridement Anesthesia Used: 4% Lidocaine Solution Depth: in the subcutaneous layer Percentage of wound debrided: 100 Instrument Used: #15 blade Tissue Removed: Fibrous, devitalized subcutaneous, biofilm, slough Severity: Fat Layer Exposed Amount of bleeding with debridement: Mild Bleeding Controlled with: Pressure Patient tolerated procedure: Patient tolerated procedure well - Additional Wound Wound debrided: Distal stump site Laterality: Left Wound Grade/Stage: Grade 1 Type of Debridement: Excisional debridement Anesthesia Used: 4% Lidocaine Solution Depth: in the subcutaneous layer Percentage of wound debrided: 100 Instrument Used: #15 blade Tissue Removed: Fibrous, devitalized subcutaneous, biofilm, slough Severity: Fat Layer Exposed Amount of bleeding with debridement: Mild Bleeding Controlled with: Pressure Patient tolerated procedure: Patient tolerated procedure well Assessment/Plan Assessment: right leg ulcers-stable. right diabetic heel ulcer with fat exposed and medically treated osteomyelitis of the calcaneus -medically treated. Left foot ulcer with fat exposed. s/p left transmetatarsal amputation with complex closure and percutaneous achilles tendon lengthening performed on 08/05/2016. This was performed secondary to abscess/septic joint/ left foot infected ulceration - dehisced and ulcer now central and lateral ( considered grade 1). edema/venous insufficiency. diabetic neuropathy. delayed healing / malnutrition. obesity. non compliance Plan: I discussed his case and treatment plan. Subcutaneous excisional debridement of the right heel ulcer, right leg, and left foot ulcer was performed today as noted in the clinical panel. It is noted he completed a full course of advanced wound care product, epifix,application. He was preapproved for puraply, and advanced wound care product with collagen and antimicrobial agent. This was applied after also debridement as noted in the clinical panel, verbal consent, saline irrigation. The product was secured in place with Steri-Strips and wound veil. I recommend continued home nursing care daily change the outer dressing with Aquacel Ag due to his moderate to high level of usual drainage. . To maintain improved skin integrity by applying lac hydrin lotion to both legs daily. Continue circaid wraps bilateral legs daily; it is okay to apply Mateus wrap instead of the CircAid foot wrap to better keep his wound dressings in place. These are temporarily lost during his most recent hospitalization and he has since retrieved these items and resumed use. To continue diuretic medications per primary care physician.To elevate legs at rest. Compliance is imperative and this was discussed again tocarlos. To continue with portion control for weight loss and proper glycemic control and nutritional supplementation to optimize healing. His hemoglobin A1c went from 9.0 to 7.4. he takes a way protein-based supplement at home and he was advised to continue in addition to a well- balanced nutritious diet. All of his questions were answered. He understands he is still at risk for limb loss. RTC one week or call sooner if there are problems. Serial labs (cbc, crp, esr) and x-rays were ordered for his right foot to monitor his previous osteomyelitis site.
--- NOTE | 2017-04-13 11:02 | RAD_ITS ---
STUDY: X-RAY - RIGHT FOOT CLINICAL: Male, 61 years old. Chronic ulceration of the heel. TECHNIQUE: 3 view(s) of the foot. COMPARISON: Comparison is made with prior study dated February 11, 2017. FINDINGS: There is an enthesophyte involving the posterior superior calcaneus at the site of insertion of the Achilles tendon. Plantar spur. Normal visualized subtalar, talonavicular, calcaneocuboid, tarsal and tarsometatarsal articulations. Normal metatarsi. The patient is status post amputation of the great toe with postoperative soft tissue swelling. There is a bipartite fibula sesamoid. Normal Normal second through fifth metatarsophalangeal joints. Normal interphalangeal joints and phalanges of the lesser toes. Diffuse soft tissue swelling. Soft tissue deficit overlying the posterior aspect of the calcaneus suggestive of an ulceration. RAD/Foot min 3 Views IMPRESSION: Diffuse soft tissue swelling. Plantar heel ulceration. Status post amputation of the great toe. Electronically Signed: Magdiel Stone MD at 15:48 EST Tel [phone], Service support ,
[2017-04-13 11:35] LABS: Hematocrit 42.6 % (40-54); Hemoglobin 13.9 g/dl (13.0-16.5); Mean Corp Hgb Conc 32.6 g/gl (32-36); Mean Corpuscular Hgb 28.4 pg (27.0-32.0); Mean Corpuscular Volume 86.9 fL (80-94); Mean Platelet Vol. 10.5 fl (6.2-12.0); Platelet Count 241 K/mm3 (150-450); RBC Distribution Width CV 14.5 % (11.6-14.6); RBC Distribution Width SD 45.5 fl (35.1-43.9); White Blood Count 9.2 K/mm3 (4.4-11.0)
[2017-04-13 11:37] LABS: Erythrocyte Sedimentation Rate 90 mm/hr (0-20); Scan Indicated on CBC? Y/N NO
[2017-04-15 10:46] VITALS: BP 190/84; PULSE 78; RESP 18; TEMP 36.2
--- NOTE | 2017-04-15 12:13 | PCM.WC.PN ---
(1) Non-pressure chronic ulcer of right heel and midfoot with fat layer exposed Status: Chronic Current Visit: Yes Code(s): L97.412 - Non-pressure chronic ulcer of right heel and midfoot with fat layer exposed (2) Chronic ulcer of left foot with fat layer exposed Status: Chronic Current Visit: Yes Code(s): L97.522 - Non-pressure chronic ulcer of other part of left foot with fat layer exposed (3) Ulcer of right lower extremity with fat layer exposed Status: Chronic Current Visit: Yes Code(s): L97.912 - Non-pressure chronic ulcer of unspecified part of right lower leg with fat layer exposed (4) Type 2 diabetes mellitus with diabetic polyneuropathy Status: Chronic Current Visit: Yes Code(s): E11.42 - Type 2 diabetes mellitus with diabetic polyneuropathy (5) Malnutrition Status: Chronic Current Visit: Yes Code(s): E46 - Unspecified protein-calorie malnutrition (6) Lower extremity edema Status: Chronic Current Visit: Yes Code(s): R60.0 - Localized edema (7) Physical deconditioning Status: Chronic Current Visit: Yes Code(s): R53.81 - Other malaise Type of Wound Date of Service: 04/15/17 Chief Complaint: Right heel ulcer with delayed healing. 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 right leg ulcers History of Wound: This 61 year old male was seen for right heel ulcer with chronic osteomyelitis and for left foot delayed healing wound. He denies pain. He denies fever, chill, nausea, vomiting. He is recovering from acute bronchitis and denies taking antibiotics at this time. He would like to review the results of his labs and x-rays that were obtained since his last visit. Progress of Wound: Improving bilateral foot. Improving ulcers to right leg - Physical Exam Vital Signs Temp Pulse Resp BP 97.1 F L 78 18 190/84 H 04/15/17 10:46 04/15/17 10:46 04/15/17 10:46 04/15/17 10:46 General: Alert, Oriented x3, Cooperative Extremities: No cyanosis, Capillary Refill Less than 3 Seconds - All toes right foot and amputation stump site (Transmetatarsal) left foot, No Calf Tenderness - Negative [place] and Simmons bilateral, Diminished Peripheral Pulses, Edema - Lateral lower extremity Skin: Ulcer/ Wound - No purulence, no erythema, no streaking, no odor, no acute infection bilateral lower extremities. His hairless skin is atrophic. No deep bone or tissue exposed Wound Measurements and Assessment - Nurse 1 - General Ulcer Measurement Start: 03/18/17 14:50 Freq: Status: Active Protocol: Activity Type Activity Date Activity User E-Sign Co-Sign Detail Recorded Client Recorded Date Recorded By Document 04/15/17 10:46 RB [id number] 04/15/17 11:15 RB 04/15/17 10:46 Wound Center Nurse 1 [Ulcer Assessment Protocol: .WD.LOC] 8-right cluster bernstein -Combined with other wound No -Current Size (cm) - Length 7 -Current Size (cm) - Width 8.8 -Current Size (cm) - Depth 0.1 -Total Square Cm 61.6 -Photo Taken No -Tunneling No -Undermining/Tunneling No -Circular Undermining No -Classification - Thickness Full Thickness without Exposed Support Structure -Exudate Amt Medium (34-66%) -Exudate Type Serosanguineous -Wound Margin Distinct, Outline Attached -Granulation Amt Medium (34-66%) -Granulation Quality [place] -Slough/Fibrin Yes -Necrosis Amt Medium (34-66%) -Necrotic Tissue Type Adherent Slough -Structure Exposed N/A -Texture (Susy-wound Skin Appearance) Assessed -Moisture (Susy-wound Skin Appearance Assessed ) -Color (Susy-wound Skin Appearance) Assessed -Temperature (Susy-wound Skin No Abnormality Appearance) (Pt Warm) -Tenderness on Palpation (Susy-wound No Skin Appearance) -Ulcer Cleansing Wound Cleanser -Foul Odor after Cleansing No -Anesthetic Used 4% Lidocaine Solution #4 Left central TMA -Combined with other wound No -Current Size (cm) - Length 1.3 -Current Size (cm) - Width 0.4 -Current Size (cm) - Depth 0.4 -Total Square Cm 0.52 -Tunneling No -Undermining/Tunneling No -Circular Undermining No -Classification - Thickness Full Thickness without Exposed Support Structure -Exudate Amt Small (1-33%) -Exudate Type Serosanguineous -Wound Margin Thickened & Rolled Under -Granulation Amt Medium (34-66%) -Granulation Quality [place] -Slough/Fibrin Yes -Necrosis Amt Small (1-33%) -Necrotic Tissue Type Adherent Slough -Structure Exposed N/A -Texture (Susy-wound Skin Appearance) Assessed -Moisture (Susy-wound Skin Appearance Assessed ) -Color (Susy-wound Skin Appearance) Assessed -Temperature (Susy-wound Skin No Abnormality Appearance) (Pt Warm) -Tenderness on Palpation (Susy-wound No Skin Appearance) -Ulcer Cleansing Wound Cleanser -Foul Odor after Cleansing No -Anesthetic Used 4% Lidocaine Solution #1 right medial heel -Combined with other wound No -Current Size (cm) - Length 1.6 -Current Size (cm) - Width 4.3 -Current Size (cm) - Depth 0.4 -Total Square Cm 6.88 -Photo Taken No -Tunneling No -Undermining/Tunneling No -Circular Undermining No -Classification - [place] Grading ( Grade 2 Diabetic Ulcer) -Exudate Amt Small (1-33%) -Exudate Type Serosanguineous -Wound Margin Thickened & Rolled Under -Granulation Amt Medium (34-66%) -Granulation Quality [place] -Slough/Fibrin Yes -Necrosis Amt Medium (34-66%) -Necrotic Tissue Type Adherent Slough -Structure Exposed N/A -Texture (Susy-wound Skin Appearance) Assessed Callus -Moisture (Susy-wound Skin Appearance Assessed ) -Color (Susy-wound Skin Appearance) Assessed -Temperature (Susy-wound Skin No Abnormality Appearance) (Pt Warm) -Tenderness on Palpation (Susy-wound No Skin Appearance) -Ulcer Cleansing Wound Cleanser -Foul Odor after Cleansing No -Anesthetic Used 4% Lidocaine Solution [Edema Assessment] -Lower Limb Edema Present Yes -Right Calf (cm) 48.7 -Right Ankle (cm) 28.4 -Left Calf (cm) 48.5 -Left Ankle (cm) 28.5 WC - Nurse 2 - General Ulcer CM Notes Start: 03/18/17 14:50 Freq: Status: Active Protocol: Activity Type Activity Date Activity User E-Sign Co-Sign Detail Recorded Client Recorded Date Recorded By Document 04/15/17 11:27 NORRIS [id number] 04/15/17 11:36 NORRIS 04/15/17 11:27 Wound Center Nurse 2 [Procedure/Treatment] 8-right cluster bernstein -Time 11:27 -Correct Patient Yes -Correct Side, Site, Position Yes -Correct Procedure Yes -Procedure Performed Yes -Type of Procedure Debridement -Clinical Debridement Subcutaneous -Post Debridement Size (cm) - Length 7 -Post Debridement Size (cm) - Width 8.9 -Post Debridement Size (cm) - Depth 0.1 -Total Square Cm 62.3 -Wound/Ulcer Outcome Not Healed -Ulcer Cleansing Rinsed/ Irrigated with Saline -Foul Odor after Cleansing No -Type of bioengineered Tissue [id number] -Expiration Date 07/30/18 -Product Lot Number [id number] -Percent Used 100 -Cetacaine [place] No -Bleeding Controlled with Pressure -Other saline [id number] -Treatment Response Procedure Tolerated Well #4 Left central TMA -Time 11:27 -Correct Patient Yes -Correct Side, Site, Position Yes -Correct Procedure Yes -Procedure Performed Yes -Type of Procedure Debridement -Clinical Debridement Subcutaneous -Post Debridement Size (cm) - Length 1.4 -Post Debridement Size (cm) - Width 0.4 -Post Debridement Size (cm) - Depth 0.4 -Total Square Cm 0.56 -Wound/Ulcer Outcome Not Healed -Ulcer Cleansing Rinsed/ Irrigated with Saline -Foul Odor after Cleansing No -Bioengineered Tissue Yes -Type of bioengineered Tissue [id number] -Expiration Date 07/30/18 -Product Lot Number [id number] -Percent Used 100 -Cetacaine [place] No -Bleeding Controlled with Pressure -Other saline [id number] -Treatment Response Procedure Tolerated Well #1 right medial heel -Time 11:28 -Correct Patient Yes -Correct Side, Site, Position Yes -Correct Procedure Yes -Procedure Performed Yes -Type of Procedure Debridement -Clinical Debridement Subcutaneous -Post Debridement Size (cm) - Length 1.6 -Post Debridement Size (cm) - Width 4.4 -Post Debridement Size (cm) - Depth 0.5 -Total Square Cm 7.04 -Wound/Ulcer Outcome Not Healed -Ulcer Cleansing Rinsed/ Irrigated with Saline -Foul Odor after Cleansing No -Type of bioengineered Tissue [id number] -Expiration Date 07/30/18 -Product Lot Number [id number] -Percent Used 100 -Cetacaine [place] No -Bleeding Controlled with Pressure -Other saline [id number] -Treatment Response Procedure Tolerated Well [See Physician Procedure note for Specifics] Pain Scale: 0-10 Numeric [Pain] -Is Patient Pain Free? Yes Musculoskeletal: No Tenderness to Palpation of Joints or Extremities, Muscle Wasting, - Neurological: - - Lack of epicritic sensation light touch bilateral lower extremities Psych/Mental Status: Normal Affect, Appropriate Debridement Note Post-Debridement Measurements/Treatment WC - Nurse 2 - General Ulcer CM Notes Start: 03/18/17 14:50 Freq: Status: Active Protocol: Activity Type Activity Date Activity User E-Sign Co-Sign Detail Recorded Client Recorded Date Recorded By Document 03/18/17 15:18 [id number] 03/18/17 15:33 Document 04/01/17 15:13 [id number] 04/01/17 15:17 Document 04/08/17 09:26 [id number] 04/08/17 09:31 Document 04/15/17 11:27 [id number] 04/15/17 11:36 03/18/17 04/01/17 04/08/17 15:18 15:13 09:26 Wound Center Nurse 2 8-right cluster bernstein -Time 15:29 15:14 09:27 -Correct Patient Yes Yes Yes -Correct Side, Site, Position Yes Yes Yes -Correct Procedure Yes Yes Yes -Procedure Performed Yes Yes Yes -Type of Procedure Debridement Debridement Debridement -Clinical Debridement Subcutaneous Subcutaneous Subcutaneous -Post Debridement Size (cm) - Length 2.1 8.5 7.1 -Post Debridement Size (cm) - Width 2.4 6.6 8.8 -Post Debridement Size (cm) - Depth 0.2 0.1 0.1 -Total Square Cm 5.04 56.10 62.48 -Wound/Ulcer Outcome Not Healed Not Healed Not Healed -Ulcer Cleansing Rinsed/ Rinsed/ Rinsed/ Irrigated with Irrigated with Irrigated with Saline Saline Saline -Foul Odor after Cleansing No No Yes, Due to Product Use -Bioengineered Tissue Yes Yes Yes -Type of bioengineered Tissue [id number] -Expiration Date 07/07/18 07/30/18 09/06/16 -Product Lot Number [id number] -Percent Used 33 100 100 -Saline Lot Number [id number] -Cetacaine [place] No No No -Topical Lidocaine (%) 5 -Bleeding Controlled with Pressure Pressure Pressure -Other saline [id number] -Treatment Response Procedure Procedure Procedure Tolerated Well Tolerated Well Tolerated Well #4 Left central TMA -Time 15:30 15:15 09:28 -Correct Patient Yes Yes Yes -Correct Side, Site, Position Yes Yes Yes -Correct Procedure Yes Yes Yes -Procedure Performed Yes Yes Yes -Type of Procedure Debridement Debridement Debridement -Clinical Debridement Subcutaneous Subcutaneous Subcutaneous -Post Debridement Size (cm) - Length 0.5 1.3 1.6 -Post Debridement Size (cm) - Width 0.4 0.5 0.5 -Post Debridement Size (cm) - Depth 0.1 0.3 0.2 -Total Square Cm 0.20 0.65 0.80 -Wound/Ulcer Outcome Not Healed Not Healed Not Healed -Ulcer Cleansing Rinsed/ Rinsed/ Rinsed/ Irrigated with Irrigated with Irrigated with Saline Saline Saline -Foul Odor after Cleansing No No No -Bioengineered Tissue Yes Yes No -Type of bioengineered Tissue [id number] -Expiration Date 07/07/18 07/30/18 07/07/18 -Product Lot Number [id number] -Percent Used 33 100 100 -Saline Lot Number [id number] -Cetacaine [place] No No No -Topical Lidocaine (%) 5 -Bleeding Controlled with Pressure Pressure Pressure -Other [id number] -Treatment Response Procedure Procedure Procedure Tolerated Well Tolerated Well Tolerated Well #1 right medial heel -Time 15:31 15:16 09:29 -Correct Patient Yes Yes Yes -Correct Side, Site, Position Yes Yes Yes -Correct Procedure Yes Yes Yes -Procedure Performed Yes Yes Yes -Type of Procedure Debridement Debridement Debridement -Clinical Debridement Subcutaneous Subcutaneous Subcutaneous -Post Debridement Size (cm) - Length 1.6 1.5 1.4 -Post Debridement Size (cm) - Width 4.3 4.5 4.4 -Post Debridement Size (cm) - Depth 0.2 0.2 0.2 -Total Square Cm 6.88 6.75 6.16 -Wound/Ulcer Outcome Not Healed Not Healed Not Healed -Ulcer Cleansing Rinsed/ Rinsed/ Rinsed/ Irrigated with Irrigated with Irrigated with Saline Saline Saline -Foul Odor after Cleansing No No No -Bioengineered Tissue Yes Yes Yes -Type of bioengineered Tissue [id number] [id number] -Expiration Date 07/07/18 07/30/18 07/07/18 -Product Lot Number [id number] -Percent Used 33 100 100 -Saline Lot Number [id number] -Cetacaine [place] No No No -Topical Lidocaine (%) 5 -Bleeding Controlled with Pressure Pressure Pressure -Other saline [id number] -Treatment Response Procedure Procedure Procedure Tolerated Well Tolerated Well Tolerated Well Pain Scale: 0-10 Numeric Is Patient Pain Free? Yes Yes Yes 04/15/17 11:27 Wound Center Nurse 2 8-right cluster bernstein -Time 11:27 -Correct Patient Yes -Correct Side, Site, Position Yes -Correct Procedure Yes -Procedure Performed Yes -Type of Procedure Debridement -Clinical Debridement Subcutaneous -Post Debridement Size (cm) - Length 7 -Post Debridement Size (cm) - Width 8.9 -Post Debridement Size (cm) - Depth 0.1 -Total Square Cm 62.3 -Wound/Ulcer Outcome Not Healed -Ulcer Cleansing Rinsed/ Irrigated with Saline -Foul Odor after Cleansing No -Bioengineered Tissue -Type of bioengineered Tissue [id number] -Expiration Date 07/30/18 -Product Lot Number [id number] -Percent Used 100 -Saline Lot Number -Cetacaine [place] No -Topical Lidocaine (%) -Bleeding Controlled with Pressure -Other saline [id number] -Treatment Response Procedure Tolerated Well #4 Left central TMA -Time 11:27 -Correct Patient Yes -Correct Side, Site, Position Yes -Correct Procedure Yes -Procedure Performed Yes -Type of Procedure Debridement -Clinical Debridement Subcutaneous -Post Debridement Size (cm) - Length 1.4 -Post Debridement Size (cm) - Width 0.4 -Post Debridement Size (cm) - Depth 0.4 -Total Square Cm 0.56 -Wound/Ulcer Outcome Not Healed -Ulcer Cleansing Rinsed/ Irrigated with Saline -Foul Odor after Cleansing No -Bioengineered Tissue Yes -Type of bioengineered Tissue [id number] -Expiration Date 07/30/18 -Product Lot Number [id number] -Percent Used 100 -Saline Lot Number -Cetacaine [place] No -Topical Lidocaine (%) -Bleeding Controlled with Pressure -Other saline [id number] -Treatment Response Procedure Tolerated Well #1 right medial heel -Time 11:28 -Correct Patient Yes -Correct Side, Site, Position Yes -Correct Procedure Yes -Procedure Performed Yes -Type of Procedure Debridement -Clinical Debridement Subcutaneous -Post Debridement Size (cm) - Length 1.6 -Post Debridement Size (cm) - Width 4.4 -Post Debridement Size (cm) - Depth 0.5 -Total Square Cm 7.04 -Wound/Ulcer Outcome Not Healed -Ulcer Cleansing Rinsed/ Irrigated with Saline -Foul Odor after Cleansing No -Bioengineered Tissue -Type of bioengineered Tissue [id number] -Expiration Date 07/30/18 -Product Lot Number [id number] -Percent Used 100 -Saline Lot Number -Cetacaine [place] No -Topical Lidocaine (%) -Bleeding Controlled with Pressure -Other saline [id number] -Treatment Response Procedure Tolerated Well Pain Scale: 0-10 Numeric Is Patient Pain Free? Yes Wound debrided: Leg cluster Laterality: Right Wound Grade/Stage: Grade 1 Type of Debridement: Excisional debridement Anesthesia Used: 4% Lidocaine Solution Depth: in the subcutaneous layer Percentage of wound debrided: 100 Instrument Used: #15 blade Tissue Removed: Fibrous, devitalized subcutaneous, biofilm, slough Severity: Fat Layer Exposed Amount of bleeding with debridement: Mild Bleeding Controlled with: Pressure Patient tolerated procedure well - Additional Wound Wound debrided: Plantar heel Laterality: Right Wound Grade/Stage: Grade 3 Type of Debridement: Excisional debridement Anesthesia Used: 4% Lidocaine Solution Depth: in the subcutaneous layer Percentage of wound debrided: 100 Instrument Used: #15 blade Tissue Removed: Fibrous, devitalized subcutaneous, biofilm, slough Severity: Fat Layer Exposed Amount of bleeding with debridement: Mild Bleeding Controlled with: Pressure Patient tolerated procedure: Patient tolerated procedure well - Additional Wound Wound debrided: central amputation stump site Laterality: Left Wound Grade/Stage: Grade 1 Type of Debridement: Excisional debridement Anesthesia Used: 4% Lidocaine Solution Depth: in the subcutaneous layer Percentage of wound debrided: 100 Instrument Used: #15 blade Tissue Removed: Fibrous, devitalized subcutaneous, biofilm, slough Severity: Fat Layer Exposed Amount of bleeding with debridement: Mild Bleeding Controlled with: Pressure Patient tolerated procedure: Patient tolerated procedure well Assessment/Plan Clinical Impression(s) from Imaging Studies Foot X-Ray 04/13/17 11:02 IMPRESSION: Diffuse soft tissue swelling. Plantar heel ulceration. Status post amputation of the great toe. Electronically Signed: Magdiel Stone MD at 15:48 EST Tel [phone], Service support , Active Problems Chronic ulcer of left foot with fat layer exposed (Chronic) Ulcer of right lower extremity with fat layer exposed (Chronic) Ulcer of right lower extremity with fat layer exposed (Chronic) Physical deconditioning (Chronic) Type 2 diabetes mellitus with diabetic polyneuropathy (Chronic) Non-pressure chronic ulcer of right heel and midfoot with fat layer exposed (Chronic) Malnutrition (Chronic) Lower extremity edema (Chronic) Assessment: right leg ulcers-stable. right diabetic heel ulcer with fat exposed and medically treated osteomyelitis of the calcaneus -medically treated. Left foot ulcer with fat exposed. s/p left transmetatarsal amputation with complex closure and percutaneous achilles tendon lengthening performed on 08/05/2016. This was performed secondary to abscess/septic joint/left foot infected ulceration - dehisced and ulcer now central and lateral (considered grade 1). edema/venous insufficiency. diabetic neuropathy. delayed healing / malnutrition. obesity. non compliance Plan: I discussed his case and treatment plan. Subcutaneous excisional debridement of the right heel ulcer, right leg, and left foot ulcer was performed today as noted in the clinical panel. It is noted he completed a full course of advanced wound care product, epifix,application. He was preapproved for puraply, and advanced wound care product with collagen and antimicrobial agent. This was applied after also debridement as noted in the clinical panel, verbal consent, saline irrigation. The product was secured in place with Steri-Strips and wound veil. I recommend continued home nursing care daily change the outer dressing with Aquacel due to his moderate to high level of usual drainage. To apply Aquacel to the other lateral part of the right leg cluster that does not have puraply applied; home health can help with this. . To maintain improved skin integrity by applying lac hydrin lotion to both legs daily. Continue circaid wraps bilateral legs daily; it is okay to apply Mateus wrap instead of the CircAid foot wrap to better keep his wound dressings in place. To continue diuretic medications per primary care physician.To elevate legs at rest. Compliance is imperative and this was discussed again today. To continue with portion control for weight loss and proper glycemic control and nutritional supplementation to optimize healing. His hemoglobin A1c went from 9.0 to 7.4. he takes a way protein-based supplement at home and he was advised to continue in addition to a well-balanced nutritious diet. All of his questions were answered. He understands he is still at risk for limb loss. Serial labs (cbc, crp, esr) and x-rays were ordered for his right foot to monitor his previous osteomyelitis site. This was also reviewed today. His white blood cell count was 9.2, sedimentation rate 90, C-reactive protein 27.9. The x-rays did not demonstrate any progressive calcaneus proliferation or acute injuries When compared to his previous x-rays; he has known history of medically treated osteomyelitis to the site. I also recommend his home health provide deconditioning prevention training lower extremity strengthening. It is noted he cannot fully walk on his limbs however I recommend preventing further deterioration if possible. Jair machuca they are continuing to work with him on this. He understands the lab elevations may be due to his recent bronchitis episode. Serial trends will continue to be monitored and obtained during the healing process. To follow-up at the wound care center in 1 week or call sooner if he has any questions or concerns.
== END 2017-04-15 23:59 ==
LOC: WC 10:30
PROVIDERS: Family Provider Family Medicine; PCP Family Medicine; Visit Provider Podiatrist
DX: E11.621 Type 2 diabetes mellitus with foot ulcer (principal); E11.622 Type 2 diabetes mellitus with other skin ulcer; L97.812 Non-pressure chronic ulcer of other part of right lower leg with fat layer exposed; E11.42 Type 2 diabetes mellitus with diabetic polyneuropathy; R60.0 Localized edema; Z89.432 Acquired absence of left foot; L97.412 Non-pressure chronic ulcer of right heel and midfoot with fat layer exposed; L97.522 Non-pressure chronic ulcer of other part of left foot with fat layer exposed; Z91.19 Patient's noncompliance with other medical treatment and regimen; E66.9 Obesity, unspecified; Z71.3 Dietary counseling and surveillance; I87.2 Venous insufficiency (chronic) (peripheral); M86.671 Other chronic osteomyelitis, right ankle and foot
CPT/HCPCS: 15271; 15272; 15275; 36415; 73630; 85027; 85652; 86140; Q4172

== ENCOUNTER 2017-05-13 14:30 | Outpatient (RCR) | payer MEDICARE, MEDICAID, SELFPAY ==
[2017-04-15 10:46] VITALS: BP 190/84
[2017-04-16 00:26] VITALS: PULSE 78; RESP 18; TEMP 36.2
[2017-04-29 13:01] VITALS: BP 147/73; PULSE 78; RESP 18; TEMP 36.9
--- NOTE | 2017-04-29 14:48 | PN.PCM_ITS ---
(1) Ulcer of left lower extremity with fat layer exposed Status: Chronic Current Visit: Yes Code(s): L97.922 - Non-pressure chronic ulcer of unspecified part of left lower leg with fat layer exposed (2) Ulcer of right lower extremity with fat layer exposed Status: Chronic Current Visit: Yes Code(s): L97.912 - Non-pressure chronic ulcer of unspecified part of right lower leg with fat layer exposed (3) Chronic ulcer of left foot with fat layer exposed Status: Chronic Current Visit: Yes Code(s): L97.522 - Non-pressure chronic ulcer of other part of left foot with fat layer exposed (4) Type 2 diabetes mellitus with diabetic polyneuropathy Status: Chronic Current Visit: Yes Code(s): E11.42 - Type 2 diabetes mellitus with diabetic polyneuropathy (5) Obesity Status: Chronic Current Visit: Yes Code(s): E66.9 - Obesity, unspecified (6) Lower extremity edema Status: Chronic Current Visit: Yes Code(s): R60.0 - Localized edema Type of Wound Date of Service: 04/30/17 Chief Complaint: Right heel ulcer with delayed healing. 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 right leg ulcers History of Wound: This 61 year old male was seen for right heel ulcer with chronic osteomyelitis and for left foot delayed healing wound. He denies pain. He denies fever, chill, nausea, vomiting. He is recovering from acute bronchitis and denies taking antibiotics at this time. Progress of Wound: Improving bilateral foot. Improving ulcers to right leg - Physical Exam Vital Signs Temp Pulse Resp BP 98.4 F 78 18 147/73 H 04/29/17 13:01 04/29/17 13:01 04/29/17 13:01 04/29/17 13:01 General: Alert, Oriented x3, Cooperative Extremities: No cyanosis, Capillary Refill Less than 3 Seconds, No Calf Tenderness, Diminished Peripheral Pulses, Edema - Bilateral controlled Skin: Ulcer/ Wound - No purulence, no erythema, no streaking, no odor bilateral , - - Atrophic skin Wound Measurements and Assessment WC - Nurse 1 - General Ulcer Measurement Start: 04/29/17 13:01 Freq: Status: Active Protocol: Activity Type Activity Date Activity User E-Sign Co-Sign Detail Recorded Client Recorded Date Recorded By Document 04/29/17 13:01 [facility] [id number] 04/29/17 13:19 [facility] 04/29/17 13:01 Wound Center Nurse 1 [Ulcer Assessment Protocol: WC.WD.LOC] 9-left posterior lower leg -Combined with other wound No -Current Size (cm) - Length 2.2 -Current Size (cm) - Width 0.5 -Current Size (cm) - Depth 0.1 -Total Square Cm 1.10 -Photo Taken Yes -Epithelialization Medium 34-66% -Tunneling No -Undermining/Tunneling No -Circular Undermining No -Classification - Eldridge Grading ( Grade 2 Diabetic Ulcer) -Exudate Amt Small (1-33%) -Exudate Type Serosanguineous -Wound Margin Flat & Intact -Granulation Amt Large (67-100%) -Granulation Quality Red -Slough/Fibrin Yes -Necrosis Amt Small (1-33%) -Necrotic Tissue Type Adherent Slough -Structure Exposed N/A -Texture (Susy-wound Skin Appearance) Assessed Scarring -Moisture (Susy-wound Skin Appearance Assessed ) Dry/Scaly -Color (Susy-wound Skin Appearance) Assessed Hemosiderin Staining -Temperature (Susy-wound Skin No Abnormality Appearance) (Pt Warm) -Tenderness on Palpation (Susy-wound No Skin Appearance) -Ulcer Cleansing Rinsed/ Irrigated with Saline -Foul Odor after Cleansing No -Anesthetic Used 4% Lidocaine Solution 8-right cluster bernstein -Combined with other wound No -Current Size (cm) - Length 2 -Current Size (cm) - Width 1.8 -Current Size (cm) - Depth 0.1 -Total Square Cm 3.6 -Photo Taken No -Epithelialization Small 1-33% -Tunneling No -Undermining/Tunneling No -Exudate Amt Small (1-33%) -Exudate Type Serosanguineous -Wound Margin Distinct, Outline Attached -Granulation Amt Large (67-100%) -Granulation Quality Red -Slough/Fibrin No -Necrosis Amt None Present (0 %) -Structure Exposed None/Limited to Skin Breakdown -Texture (Susy-wound Skin Appearance) Scarring -Moisture (Susy-wound Skin Appearance Dry/Scaly ) -Color (Susy-wound Skin Appearance) Erythema Hemosiderin Staining -Temperature (Susy-wound Skin No Abnormality Appearance) (Pt Warm) -Tenderness on Palpation (Susy-wound No Skin Appearance) -Ulcer Cleansing Rinsed/ Irrigated with Saline -Foul Odor after Cleansing No -Anesthetic Used 4% Lidocaine Solution #4 Left central TMA -Combined with other wound No -Current Size (cm) - Length 1 -Current Size (cm) - Width 0.4 -Current Size (cm) - Depth 0.2 -Total Square Cm 0.4 -Photo Taken No -Epithelialization None Present -Tunneling No -Undermining/Tunneling No -Exudate Amt Small (1-33%) -Exudate Type Serosanguineous -Granulation Amt Small (1-33%) -Granulation Quality [place] -Slough/Fibrin Yes -Necrosis Amt Medium (34-66%) -Necrotic Tissue Type Adherent Slough -Texture (Susy-wound Skin Appearance) Scarring -Moisture (Susy-wound Skin Appearance Dry/Scaly ) -Color (Susy-wound Skin Appearance) Assessed -Temperature (Susy-wound Skin No Abnormality Appearance) (Pt Warm) -Tenderness on Palpation (Susy-wound No Skin Appearance) -Ulcer Cleansing Wound Cleanser -Foul Odor after Cleansing No -Anesthetic Used 4% Lidocaine Solution #1 right medial heel -Combined with other wound No -Current Size (cm) - Length 1.2 -Current Size (cm) - Width 4.4 -Current Size (cm) - Depth 0.3 -Total Square Cm 5.28 -Photo Taken No -Epithelialization None Present -Tunneling No -Undermining/Tunneling No -Exudate Amt Medium (34-66%) -Exudate Type Serosanguineous -Wound Margin Distinct, Outline Attached -Granulation Amt Medium (34-66%) -Granulation Quality Pale [place] -Slough/Fibrin Yes -Necrosis Amt Medium (34-66%) -Necrotic Tissue Type Adherent Slough -Texture (Susy-wound Skin Appearance) Callus Scarring -Moisture (Susy-wound Skin Appearance Dry/Scaly ) -Color (Susy-wound Skin Appearance) No Abnormality -Temperature (Susy-wound Skin No Abnormality Appearance) (Pt Warm) -Tenderness on Palpation (Susy-wound No Skin Appearance) -Foul Odor after Cleansing No -Anesthetic Used 4% Lidocaine Solution [Edema Assessment] -Lower Limb Edema Present Yes -Right Calf (cm) 49.5 -Right Ankle (cm) 26.1 -Left Calf (cm) 49.5 -Left Ankle (cm) 27 WC - Nurse 2 - General Ulcer CM Notes Start: 04/29/17 13:01 Freq: Status: Active Protocol: Activity Type Activity Date Activity User E-Sign Co-Sign Detail Recorded Client Recorded Date Recorded By Document 04/29/17 14:02 NORRIS [id number] 04/29/17 14:07 NORRIS 04/29/17 14:02 Wound Center Nurse 2 [Procedure/Treatment] 8-right cluster bernstein -Time 14:03 -Correct Patient Yes -Correct Side, Site, Position Yes -Correct Procedure Yes -Procedure Performed Yes -Type of Procedure Debridement -Clinical Debridement Subcutaneous -Post Debridement Size (cm) - Length 2 -Post Debridement Size (cm) - Width 1.9 -Post Debridement Size (cm) - Depth 0.1 -Total Square Cm 3.8 -Wound/Ulcer Outcome Not Healed -Ulcer Cleansing Rinsed/ Irrigated with Saline -Foul Odor after Cleansing No -Bioengineered Tissue Yes -Type of bioengineered Tissue [id number] -Bleeding Controlled with Pressure -Treatment Response Procedure Tolerated Well #4 Left central TMA -Time 14:03 -Correct Patient Yes -Correct Side, Site, Position Yes -Correct Procedure Yes -Procedure Performed Yes -Type of Procedure Debridement -Clinical Debridement Subcutaneous -Post Debridement Size (cm) - Length 1 -Post Debridement Size (cm) - Width 0.5 -Post Debridement Size (cm) - Depth 0.2 -Total Square Cm 0.5 -Wound/Ulcer Outcome Not Healed -Ulcer Cleansing Rinsed/ Irrigated with Saline -Foul Odor after Cleansing No -Bioengineered Tissue Yes -Type of bioengineered Tissue [id number] -Bleeding Controlled with Pressure -Treatment Response Procedure Tolerated Well #1 right medial heel -Time 14:04 -Correct Patient Yes -Correct Side, Site, Position Yes -Correct Procedure Yes -Procedure Performed Yes -Type of Procedure Debridement -Clinical Debridement Subcutaneous -Post Debridement Size (cm) - Length 1.2 -Post Debridement Size (cm) - Width 4.5 -Post Debridement Size (cm) - Depth 0.3 -Total Square Cm 5.40 -Wound/Ulcer Outcome Not Healed -Ulcer Cleansing Rinsed/ Irrigated with Saline -Foul Odor after Cleansing No -Bioengineered Tissue Yes -Type of bioengineered Tissue [id number] -Expiration Date 01/22/19 -Product Lot Number [id number] -Percent Used 100 -Saline Lot Number [id number] -Bleeding Controlled with Pressure -Other puraply applied to ulcers #8,4 ,1. -Treatment Response Procedure Tolerated Well [See Physician Procedure note for Specifics] Pain Scale: 0-10 Numeric [Pain] -Is Patient Pain Free? Yes Musculoskeletal: No Tenderness to Palpation of Joints or Extremities, Muscle Wasting, - - Left transmetatarsal amputation Neurological: - - Lack of sensation to light touch bilateral lower extremities Psych/Mental Status: Normal Affect, Appropriate Debridement Note Post-Debridement Measurements/Treatment WC - Nurse 2 - General Ulcer CM Notes Start: 04/29/17 13:01 Freq: Status: Active Protocol: Activity Type Activity Date Activity User E-Sign Co-Sign Detail Recorded Client Recorded Date Recorded By Document 04/29/17 14:02 NORRIS [id number] 04/29/17 14:07 NORRIS 04/29/17 14:02 Wound Center Nurse 2 8-right cluster bernstein -Time 14:03 -Correct Patient Yes -Correct Side, Site, Position Yes -Correct Procedure Yes -Procedure Performed Yes -Type of Procedure Debridement -Clinical Debridement Subcutaneous -Post Debridement Size (cm) - Length 2 -Post Debridement Size (cm) - Width 1.9 -Post Debridement Size (cm) - Depth 0.1 -Total Square Cm 3.8 -Wound/Ulcer Outcome Not Healed -Ulcer Cleansing Rinsed/ Irrigated with Saline -Foul Odor after Cleansing No -Bioengineered Tissue Yes -Type of bioengineered Tissue [id number] -Bleeding Controlled with Pressure -Treatment Response Procedure Tolerated Well #4 Left central TMA -Time 14:03 -Correct Patient Yes -Correct Side, Site, Position Yes -Correct Procedure Yes -Procedure Performed Yes -Type of Procedure Debridement -Clinical Debridement Subcutaneous -Post Debridement Size (cm) - Length 1 -Post Debridement Size (cm) - Width 0.5 -Post Debridement Size (cm) - Depth 0.2 -Total Square Cm 0.5 -Wound/Ulcer Outcome Not Healed -Ulcer Cleansing Rinsed/ Irrigated with Saline -Foul Odor after Cleansing No -Bioengineered Tissue Yes -Type of bioengineered Tissue [id number] -Bleeding Controlled with Pressure -Treatment Response Procedure Tolerated Well #1 right medial heel -Time 14:04 -Correct Patient Yes -Correct Side, Site, Position Yes -Correct Procedure Yes -Procedure Performed Yes -Type of Procedure Debridement -Clinical Debridement Subcutaneous -Post Debridement Size (cm) - Length 1.2 -Post Debridement Size (cm) - Width 4.5 -Post Debridement Size (cm) - Depth 0.3 -Total Square Cm 5.40 -Wound/Ulcer Outcome Not Healed -Ulcer Cleansing Rinsed/ Irrigated with Saline -Foul Odor after Cleansing No -Bioengineered Tissue Yes -Type of bioengineered Tissue [id number] -Expiration Date 01/22/19 -Product Lot Number [id number] -Percent Used 100 -Saline Lot Number [id number] -Bleeding Controlled with Pressure -Other puraply applied to ulcers #8,4 ,1. -Treatment Response Procedure Tolerated Well Pain Scale: 0-10 Numeric Is Patient Pain Free? Yes Wound debrided: posterior heel Laterality: Right Wound Grade/Stage: grade 3 Type of Debridement: Excisional debridement Anesthesia Used: 5% Lidocaine Gel Depth: in the subcutaneous layer Percentage of wound debrided: 100 Instrument Used: #15 blade Tissue Removed: Fibrous, devitalized subcutaneous, biofilm, slough Severity: Fat Layer Exposed - Fibrous, devitalized subcutaneous, biofilm, slough Amount of bleeding with debridement: Mild Bleeding Controlled with: Pressure Patient tolerated procedure well - Additional Wound Wound debrided: distal foot Laterality: Left Wound Grade/Stage: grade 1 Type of Debridement: Excisional debridement Anesthesia Used: 4% Lidocaine Solution Depth: in the subcutaneous layer Percentage of wound debrided: 100 Instrument Used: #15 blade Tissue Removed: Fibrous, devitalized subcutaneous, biofilm, slough Severity: Fat Layer Exposed Amount of bleeding with debridement: Mild Bleeding Controlled with: Pressure Patient tolerated procedure: Patient tolerated procedure well - Additional Wound Wound debrided: anterior leg Laterality: Right Wound Grade/Stage: grade 1 Type of Debridement: Excisional debridement Anesthesia Used: 4% Lidocaine Solution Depth: in the subcutaneous layer Percentage of wound debrided: 100 Instrument Used: #15 blade Tissue Removed: Fibrous, devitalized subcutaneous, biofilm, slough Severity: Fat Layer Exposed Amount of bleeding with debridement: Mild Bleeding Controlled with: Pressure Patient tolerated procedure: Patient tolerated procedure well Assessment/Plan Active Problems Ulcer of left lower extremity with fat layer exposed (Chronic) Ulcer of right lower extremity with fat layer exposed (Chronic) Chronic ulcer of left foot with fat layer exposed (Chronic) Type 2 diabetes mellitus with diabetic polyneuropathy (Chronic) Obesity (Chronic) Lower extremity edema (Chronic) Assessment: right leg ulcers-stable. right diabetic heel ulcer with fat exposed and medically treated osteomyelitis of the calcaneus -medically treated. Left foot ulcer with fat exposed. s/p left transmetatarsal amputation with complex closure and percutaneous achilles tendon lengthening performed on 08/05/2016. This was performed secondary to abscess/septic joint/ left foot infected ulceration - dehisced and ulcer now central and lateral ( considered grade 1). edema/venous insufficiency. diabetic neuropathy. delayed healing / malnutrition. obesity. non compliance Plan: I discussed his case and treatment plan. Subcutaneous excisional debridement of the right heel ulcer, right leg, and left foot ulcer was performed today as noted in the clinical panel. It is noted he completed a full course of advanced wound care product, epifix,application. He was preapproved for puraply, and advanced wound care product with collagen and antimicrobial agent. This was applied after also debridement as noted in the clinical panel, verbal consent, saline irrigation. The product was secured in place with Steri-Strips and wound veil. I recommend continued home nursing care daily change the outer dressing with Aquacel due to his moderate to high level of usual drainage. To apply Aquacel to the other lateral part of the right leg cluster that does not have puraply applied; home health can help with this. . To maintain improved skin integrity by applying lac hydrin lotion to both legs daily. Continue circaid wraps bilateral legs daily; it is okay to apply Mateus wrap instead of the CircAid foot wrap to better keep his wound dressings in place. To continue diuretic medications per primary care physician.To elevate legs at rest. Compliance is imperative and this was discussed again today. To continue with portion control for weight loss and proper glycemic control and nutritional supplementation to optimize healing. His hemoglobin A1c went from 9.0 to 7.4. he takes a way protein-based supplement at home and he was advised to continue in addition to a well- balanced nutritious diet. All of his questions were answered. He understands he is still at risk for limb loss. Serial labs (cbc, crp, esr) and x-rays were ordered for his right foot to monitor his previous osteomyelitis site. This was also reviewed today. His white blood cell count was 9.2, sedimentation rate 90, C-reactive protein 27.9. The x-rays did not demonstrate any progressive calcaneus proliferation or acute injuries When compared to his previous x-rays; he has known history of medically treated osteomyelitis to the site. I also recommend his home health provide deconditioning prevention training lower extremity strengthening. It is noted he cannot fully walk on his limbs however I recommend preventing further deterioration if possible. Jair relates they are continuing to work with him on this. He understands the lab elevations may be due to his recent bronchitis episode. Serial trends will continue to be monitored and obtained during the healing process. To follow-up at the wound care center in 1 week or call sooner if he has any questions or concerns.
[2017-05-13 14:42] VITALS: BP 136/60; PULSE 75; RESP 20; TEMP 36.5
--- NOTE | 2017-05-13 16:18 | PCM.WC.PN ---
(1) Ulcer of left lower extremity with fat layer exposed Status: Chronic Code(s): L97.922 - Non-pressure chronic ulcer of unspecified part of left lower leg with fat layer exposed (2) Ulcer of right lower extremity with fat layer exposed Status: Chronic Code(s): L97.912 - Non-pressure chronic ulcer of unspecified part of right lower leg with fat layer exposed (3) Chronic ulcer of left foot with fat layer exposed Status: Chronic Code(s): L97.522 - Non-pressure chronic ulcer of other part of left foot with fat layer exposed (4) Type 2 diabetes mellitus with diabetic polyneuropathy Status: Chronic Code(s): E11.42 - Type 2 diabetes mellitus with diabetic polyneuropathy (5) Obesity Status: Chronic Code(s): E66.9 - Obesity, unspecified (6) Lower extremity edema Status: Chronic Code(s): R60.0 - Localized edema Type of Wound Date of Service: 05/14/17 Chief Complaint: Right heel ulcer with delayed healing. 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 right leg ulcers History of Wound: This 61 year old male was seen for right heel ulcer with chronic osteomyelitis and for left foot delayed healing wound. He denies pain. He denies fever, chill, nausea, vomiting. He takes 60 g of whey protein in 1 sitting daily. Progress of Wound: Improving bilateral foot. Improving ulcers to right leg - Physical Exam Vital Signs Temp Pulse Resp BP 97.7 F L 75 20 H 136/60 H 05/13/17 14:42 05/13/17 14:42 05/13/17 14:42 05/13/17 14:42 General: Alert, Oriented x3, Cooperative Extremities: No cyanosis, Capillary Refill Less than 3 Seconds, No Calf Tenderness, Diminished Peripheral Pulses, Edema - Bilateral lower extremities Skin: Ulcer/ Wound - No purulence, no erythema, streaking, no odor. Skin is atrophic. Wound Measurements and Assessment WC - Nurse 1 - General Ulcer Measurement Start: 04/29/17 13:01 Freq: Status: Active Protocol: Activity Type Activity Date Activity User E-Sign Co-Sign Detail Recorded Client Recorded Date Recorded By Document 05/13/17 14:42 DL [id number] 05/13/17 15:00 DL 02/28/18 14:42 Wound Center Nurse 1 [Ulcer Assessment] 9-left posterior lower leg -Current Size (cm) - Length 0 -Current Size (cm) - Width 0 -Current Size (cm) - Depth 0 -Total Square Cm 0 -Photo Taken Yes -Exudate Amt None Present (0 %) -Wound Margin Flat & Intact -Granulation Amt Large (67-100%) -Granulation Quality [place] -Slough/Fibrin No -Necrosis Amt None Present (0 %) -Structure Exposed N/A -Texture (Susy-wound Skin Appearance) Scarring -Moisture (Susy-wound Skin Appearance No Abnormality ) -Color (Susy-wound Skin Appearance) Hemosiderin Staining -Temperature (Susy-wound Skin No Abnormality Appearance) (Pt Warm) -Ulcer Cleansing Wound Cleanser -Foul Odor after Cleansing No 8-right cluster bernstein -Current Size (cm) - Length 2 -Current Size (cm) - Width 1.4 -Current Size (cm) - Depth 0.1 -Total Square Cm 2.8 -Photo Taken No -Exudate Amt Small (1-33%) -Exudate Type Serosanguineous -Wound Margin Distinct, Outline Attached -Granulation Amt Large (67-100%) -Granulation Quality Red -Necrosis Amt Small (1-33%) -Necrotic Tissue Type Adherent Slough -Structure Exposed N/A -Texture (Susy-wound Skin Appearance) Scarring -Moisture (Susy-wound Skin Appearance Dry/Scaly ) -Color (Susy-wound Skin Appearance) Hemosiderin Staining -Temperature (Susy-wound Skin No Abnormality Appearance) (Pt Warm) -Ulcer Cleansing Wound Cleanser -Foul Odor after Cleansing No -Anesthetic Used 4% Lidocaine Solution #4 Left central TMA -Current Size (cm) - Length 0.1 -Current Size (cm) - Width 0.1 -Current Size (cm) - Depth 0.1 -Total Square Cm 0.01 -Photo Taken No -Exudate Amt None Present (0 %) -Wound Margin Flat & Intact -Granulation Amt Small (1-33%) -Granulation Quality [place] -Necrosis Amt Small (1-33%) -Necrotic Tissue Type Adherent Slough -Structure Exposed N/A -Texture (Susy-wound Skin Appearance) Scarring -Moisture (Susy-wound Skin Appearance No Abnormality ) -Color (Susy-wound Skin Appearance) Hemosiderin Staining -Temperature (Susy-wound Skin No Abnormality Appearance) (Pt Warm) -Ulcer Cleansing Wound Cleanser -Foul Odor after Cleansing No -Anesthetic Used 4% Lidocaine Solution #1 right medial heel -Current Size (cm) - Length 1 -Current Size (cm) - Width 3.9 -Current Size (cm) - Depth 0.3 -Total Square Cm 3.9 -Photo Taken No -Exudate Amt Small (1-33%) -Exudate Type Serosanguineous -Wound Margin Thickened -Granulation Amt Large (67-100%) -Granulation Quality [place] Red -Necrosis Amt Small (1-33%) -Necrotic Tissue Type Adherent Slough -Structure Exposed N/A -Texture (Susy-wound Skin Appearance) Scarring -Moisture (Susy-wound Skin Appearance Dry/Scaly ) -Color (Susy-wound Skin Appearance) No Abnormality -Temperature (Susy-wound Skin No Abnormality Appearance) (Pt Warm) -Ulcer Cleansing Wound Cleanser -Foul Odor after Cleansing No -Anesthetic Used 4% Lidocaine Solution [Edema Assessment] -Right Calf (cm) 45 -Right Ankle (cm) 26.2 -Left Calf (cm) 42.5 -Left Ankle (cm) 25.5 WC - Nurse 2 - General Ulcer CM Notes Start: 04/29/17 13:01 Freq: Status: Active Protocol: Activity Type Activity Date Activity User E-Sign Co-Sign Detail Recorded Client Recorded Date Recorded By Document 05/13/17 15:13 [id number] 05/13/17 15:24 05/13/17 15:13 Wound Center Nurse 2 [Procedure/Treatment] 9-left posterior lower leg -Time 15:17 -Correct Patient Yes -Correct Side, Site, Position Yes -Correct Procedure Yes -Procedure Performed Yes -Post Debridement Size (cm) - Length 0 -Post Debridement Size (cm) - Width 0 -Post Debridement Size (cm) - Depth 0 -Total Square Cm 0 -Wound/Ulcer Outcome Healed- Epithelialized -Ulcer Cleansing Rinsed/ Irrigated with Saline -Foul Odor after Cleansing No -Bioengineered Tissue No -Bleeding Controlled with NA -Treatment Response Procedure Tolerated Well 8-right cluster bernstein -Time 15:17 -Correct Patient Yes -Correct Side, Site, Position Yes -Correct Procedure Yes -Procedure Performed Yes -Type of Procedure Debridement -Clinical Debridement Subcutaneous -Post Debridement Size (cm) - Length 2.1 -Post Debridement Size (cm) - Width 1.5 -Post Debridement Size (cm) - Depth 0.1 -Total Square Cm 3.15 -Wound/Ulcer Outcome Not Healed -Ulcer Cleansing Rinsed/ Irrigated with Saline -Foul Odor after Cleansing No -Bioengineered Tissue Yes -Type of bioengineered Tissue [id number] -Expiration Date 01/22/19 -Product Lot Number [id number] -Percent Used 33 -Saline Lot Number [id number] -Topical Lidocaine (%) 4 -Bleeding Controlled with Pressure -Treatment Response Procedure Tolerated Well #4 Left central TMA -Time 15:17 -Correct Patient Yes -Correct Side, Site, Position Yes -Correct Procedure Yes -Procedure Performed Yes -Type of Procedure Debridement -Clinical Debridement Subcutaneous -Post Debridement Size (cm) - Length 0.2 -Post Debridement Size (cm) - Width 0.2 -Post Debridement Size (cm) - Depth 0.1 -Total Square Cm 0.04 -Wound/Ulcer Outcome Not Healed -Ulcer Cleansing Rinsed/ Irrigated with Saline -Foul Odor after Cleansing No -Bioengineered Tissue Yes -Type of bioengineered Tissue [id number] -Expiration Date 01/22/19 -Product Lot Number [id number] -Percent Used 33 -Saline Lot Number [id number] -Topical Lidocaine (%) 4 -Bleeding Controlled with Pressure -Treatment Response Procedure Tolerated Well #1 right medial heel -Time 15:19 -Correct Patient Yes -Correct Side, Site, Position Yes -Correct Procedure Yes -Procedure Performed Yes -Type of Procedure Debridement -Clinical Debridement Subcutaneous -Post Debridement Size (cm) - Length 1.1 -Post Debridement Size (cm) - Width 4.0 -Post Debridement Size (cm) - Depth 0.3 -Total Square Cm 4.40 -Wound/Ulcer Outcome Not Healed -Ulcer Cleansing Rinsed/ Irrigated with Saline -Foul Odor after Cleansing No -Bioengineered Tissue Yes -Type of bioengineered Tissue [id number] -Expiration Date 01/22/19 -Product Lot Number [id number] -Percent Used 33 -Saline Lot Number [id number] -Topical Lidocaine (%) 4 -Bleeding Controlled with Pressure -Treatment Response Procedure Tolerated Well [See Physician Procedure note for Specifics] Pain Scale: 0-10 Numeric [Pain] -Is Patient Pain Free? Yes Musculoskeletal: No Tenderness to Palpation of Joints or Extremities, Muscle Wasting, - - Left transmetatarsal amputation stump Neurological: - - Lack of epicritic sensation light touch bilateral lower extremities consistent with neuropathy Psych/Mental Status: Normal Affect, Appropriate Debridement Note Post-Debridement Measurements/Treatment WC - Nurse 2 - General Ulcer CM Notes Start: 04/29/17 13:01 Freq: Status: Active Protocol: Activity Type Activity Date Activity User E-Sign Co-Sign Detail Recorded Client Recorded Date Recorded By Document 04/29/17 14:02 JF [id number] 04/29/17 14:07 JF Document 05/13/17 15:13 TM [id number] 05/13/17 15:24 TM 04/29/17 05/13/17 14:02 15:13 Wound Center Nurse 2 9-left posterior lower leg -Time 15:17 -Correct Patient Yes -Correct Side, Site, Position Yes -Correct Procedure Yes -Procedure Performed Yes -Post Debridement Size (cm) - Length 0 -Post Debridement Size (cm) - Width 0 -Post Debridement Size (cm) - Depth 0 -Total Square Cm 0 -Wound/Ulcer Outcome Healed- Epithelialized -Ulcer Cleansing Rinsed/ Irrigated with Saline -Foul Odor after Cleansing No -Bioengineered Tissue No -Bleeding Controlled with NA -Treatment Response Procedure Tolerated Well 8-right cluster bernstein -Time 14:03 15:17 -Correct Patient Yes Yes -Correct Side, Site, Position Yes Yes -Correct Procedure Yes Yes -Procedure Performed Yes Yes -Type of Procedure Debridement Debridement -Clinical Debridement Subcutaneous Subcutaneous -Post Debridement Size (cm) - Length 2 2.1 -Post Debridement Size (cm) - Width 1.9 1.5 -Post Debridement Size (cm) - Depth 0.1 0.1 -Total Square Cm 3.8 3.15 -Wound/Ulcer Outcome Not Healed Not Healed -Ulcer Cleansing Rinsed/ Rinsed/ Irrigated with Irrigated with Saline Saline -Foul Odor after Cleansing No No -Bioengineered Tissue Yes Yes -Type of bioengineered Tissue [id number] -Expiration Date 01/22/19 -Product Lot Number [id number] -Percent Used 33 -Saline Lot Number [id number] -Topical Lidocaine (%) 4 -Bleeding Controlled with Pressure Pressure -Treatment Response Procedure Procedure Tolerated Well Tolerated Well #4 Left central TMA -Time 14:03 15:17 -Correct Patient Yes Yes -Correct Side, Site, Position Yes Yes -Correct Procedure Yes Yes -Procedure Performed Yes Yes -Type of Procedure Debridement Debridement -Clinical Debridement Subcutaneous Subcutaneous -Post Debridement Size (cm) - Length 1 0.2 -Post Debridement Size (cm) - Width 0.5 0.2 -Post Debridement Size (cm) - Depth 0.2 0.1 -Total Square Cm 0.5 0.04 -Wound/Ulcer Outcome Not Healed Not Healed -Ulcer Cleansing Rinsed/ Rinsed/ Irrigated with Irrigated with Saline Saline -Foul Odor after Cleansing No No -Bioengineered Tissue Yes Yes -Type of bioengineered Tissue [id number] -Expiration Date 01/22/19 -Product Lot Number [id number] -Percent Used 33 -Saline Lot Number [id number] -Topical Lidocaine (%) 4 -Bleeding Controlled with Pressure Pressure -Treatment Response Procedure Procedure Tolerated Well Tolerated Well #1 right medial heel -Time 14:04 15:19 -Correct Patient Yes Yes -Correct Side, Site, Position Yes Yes -Correct Procedure Yes Yes -Procedure Performed Yes Yes -Type of Procedure Debridement Debridement -Clinical Debridement Subcutaneous Subcutaneous -Post Debridement Size (cm) - Length 1.2 1.1 -Post Debridement Size (cm) - Width 4.5 4.0 -Post Debridement Size (cm) - Depth 0.3 0.3 -Total Square Cm 5.40 4.40 -Wound/Ulcer Outcome Not Healed Not Healed -Ulcer Cleansing Rinsed/ Rinsed/ Irrigated with Irrigated with Saline Saline -Foul Odor after Cleansing No No -Bioengineered Tissue Yes Yes -Type of bioengineered Tissue [id number] -Expiration Date 01/22/19 01/22/19 -Product Lot Number [id number] -Percent Used 100 33 -Saline Lot Number [id number] -Topical Lidocaine (%) 4 -Bleeding Controlled with Pressure Pressure -Other puraply applied to ulcers #8,4 ,1. -Treatment Response Procedure Procedure Tolerated Well Tolerated Well Pain Scale: 0-10 Numeric Is Patient Pain Free? Yes Yes Wound debrided: leg Wound Grade/Stage: grade 1 Type of Debridement: Excisional debridement Anesthesia Used: 4% Lidocaine Solution Depth: in the subcutaneous layer Percentage of wound debrided: 100 Instrument Used: #15 blade Tissue Removed: fibrous, devitalized subcutaneous, biofilm, slough Severity: Fat Layer Exposed Amount of bleeding with debridement: Mild Bleeding Controlled with: Pressure Patient tolerated procedure well - Additional Wound Wound debrided: heel Laterality: Right Wound Grade/Stage: grade 3 Type of Debridement: Excisional debridement Anesthesia Used: 4% Lidocaine Solution Depth: in the subcutaneous layer Percentage of wound debrided: 100 Instrument Used: #15 blade Tissue Removed: fibrous, devitalized subcutaneous, biofilm, slough Severity: Fat Layer Exposed Patient tolerated procedure: Patient tolerated procedure well - Additional Wound Wound debrided: distal foot at TMA site Laterality: Left Wound Grade/Stage: grade 1 Type of Debridement: Excisional debridement Anesthesia Used: 4% Lidocaine Solution Depth: in the subcutaneous layer Percentage of wound debrided: 100 Instrument Used: #15 blade Tissue Removed: fibrous, devitalized subcutaneous, biofilm, slough Severity: Fat Layer Exposed Amount of bleeding with debridement: Mild Bleeding Controlled with: Pressure Patient tolerated procedure: Patient tolerated procedure well Assessment/Plan Assessment: right leg ulcers-stable. right diabetic heel ulcer with fat exposed and medically treated osteomyelitis of the calcaneus -medically treated. Left foot ulcer with fat exposed. s/p left transmetatarsal amputation with complex closure and percutaneous achilles tendon lengthening performed on 08/05/2016. This was performed secondary to abscess/septic joint/left foot infected ulceration - dehisced and ulcer now central and lateral (considered grade 1). edema/venous insufficiency. diabetic neuropathy. delayed healing / malnutrition. obesity. non compliance Plan: I discussed his case and treatment plan. Subcutaneous excisional debridement of the right heel ulcer, right leg, and left foot ulcer was performed today as noted in the clinical panel. It is noted he completed a full course of advanced wound care product, epifix,application. He was preapproved for puraply, and advanced wound care product with collagen and antimicrobial agent. This was applied after also debridement as noted in the clinical panel, verbal consent, saline irrigation. The product was secured in place with Steri-Strips and wound veil. I recommend continued home nursing care daily change the outer dressing with Aquacel due to his moderate to high level of usual drainage. To apply Aquacel to the other lateral part of the right leg cluster that does not have puraply applied; home health can help with this. I would like to consider a different advanced wound care product after he completes 10 applications of puraply. He is an excellent candidate for Regranex and preauthorization will be initiated. He has continued high risk for limb loss and additional growth factor stimulation would be of great value. . To maintain improved skin integrity by applying lac hydrin lotion to both legs daily. Continue circaid wraps bilateral legs daily; it is okay to apply Mateus wrap instead of the CircAid foot wrap to better keep his wound dressings in place. To continue diuretic medications per primary care physician.To elevate legs at rest. Compliance is imperative and this was discussed again today. To continue with portion control for weight loss and proper glycemic control and nutritional supplementation to optimize healing. His hemoglobin A1c went from 9.0 to 7.4. he takes a way protein-based supplement at home and he was advised to continue in addition to a well-balanced nutritious diet. He was advised to spread his protein intake in over the course of the days of his body can better utilize. All of his questions were answered. He understands he is still at risk for limb loss. Serial labs (cbc, crp, esr) and x-rays were ordered for his right foot to monitor his previous osteomyelitis site. This was also reviewed today. His white blood cell count was 9.2, sedimentation rate 90, C-reactive protein 27.9. The x-rays did not demonstrate any progressive calcaneus proliferation or acute injuries When compared to his previous x-rays; he has known history of medically treated osteomyelitis to the site. I also recommend his home health provide deconditioning prevention training lower extremity strengthening. It is noted he cannot fully walk on his limbs however I recommend preventing further deterioration if possible. Jair machuca they are continuing to work with him on this. He understands the lab elevations may be due to his recent bronchitis episode. Serial trends will continue to be monitored and obtained during the healing process. To follow-up at the wound care center in 1 week or call sooner if he has any questions or concerns.
== END 2017-05-13 23:59 ==
LOC: WC 14:30
PROVIDERS: Family Provider Family Medicine; PCP Family Medicine; Visit Provider Podiatrist
DX: E11.622 Type 2 diabetes mellitus with other skin ulcer (principal); Z71.3 Dietary counseling and surveillance; R60.0 Localized edema; M86.671 Other chronic osteomyelitis, right ankle and foot; L97.522 Non-pressure chronic ulcer of other part of left foot with fat layer exposed; E11.621 Type 2 diabetes mellitus with foot ulcer; L97.812 Non-pressure chronic ulcer of other part of right lower leg with fat layer exposed; Z89.432 Acquired absence of left foot; E11.42 Type 2 diabetes mellitus with diabetic polyneuropathy; E66.9 Obesity, unspecified; Z91.19 Patient's noncompliance with other medical treatment and regimen; E11.51 Type 2 diabetes mellitus with diabetic peripheral angiopathy without gangrene
CPT/HCPCS: 15271; 15275; Q4172

== ENCOUNTER 2017-06-04 15:17 | Inpatient (IN) | payer MEDICARE, MEDICAID, SELFPAY ==
[2017-06-04 15:19] VITALS: BP 161/74; PULSE 63; RESP 18; TEMP 36.2; O2SAT 97; BMI 49.4
--- NOTE | 2017-06-04 15:32 | VDLE_ITS ---
Reason For Study: pain RIGHT GSV is normal. POP V is compressible, spontaneous, phasic, competent and demonstrates normal augmentation. T/P Trunk is compressible. PTV is compressible. Mid and distal FV are compressible with normal venous flow patterns. Unable to image CFV, Prox FV, and Peroneal V. Gastroc V are dilated and noncompressible. Procedure Exam performed portable in ED. The exam was of poor technical quality due to pt body habitus. A preliminary report was called and/or faxed to Dr. Gregg. Interpretation Summary Acute deep vein thrombosis is noted in the right gastrocnemius vein. The right mid- and distal femoral vein, popliteal vein, tibio-peroneal trunk, and posterior tibial vein are patent. The right common femoral vein, proximal femoral vein, and peroneal vein were not visualized. The right greater saphenous vein appears patent and compressible segmentally. Ordering Physician: Umari Gregg Performed By: Sanjiv Queen RVT
--- NOTE | 2017-06-04 15:35 | ED.VISSUMM ---
- ER Visit Summary Date of Service: 06/04/17 Chief Complaint: Redness of right leg History of Present Illness: The patient is a 62 M history of diabetes and diabetic wounds presents to the emergency department with increasing redness of his right lower extremity. Patient states over the past 3 days, he has had increased redness and swelling of the right leg. He thought was secondary to his dressings being too tight. He was actually seen at the wound care center done yesterday. His wounds were significantly debrided. He states that over the past 24 hours, the redness has started to spread. He states it feels more warm. He states there is also been increase in drainage. Patient has had osteomyelitis of his right heel. He is also had prior amputation of left foot. He has not been on any recent antibiotics. Physical Examination: Vital signs reviewed General: Well-nourished, well-developed Head: Normocephalic, atraumatic Eyes: Pupils equal and reactive, extraocular muscles intact Neck, supple, no lymphadenopathy Heart: Regular rate and rhythm Respiratory: No distress, clear bilaterally Abdomen: Soft, nontender, nondistended, no peritoneal signs Back: Nontender Extremities: Right lower extremity has cellulitis just below the knee through the foot. There are multiple large ulcerations. There is no purulent drainage. Pulses are 1+. There is no crepitus. Skin: Normal color no rash Neuro: Alert and oriented, no focal or lateralizing deficits Test Results: [] Emergency Department Course and Treatment: Patient has recently debrided wounds now with increasing cellulitis and drainage. He does have pulses. I did obtain an ultrasound which shows a below knee DVT in the gastrocnemius. With the patient's expansion of the cellulitis and increased drainage, I do feel that he is going to require admission for IV antibiotics and monitoring of his cellulitis. The patient was discussed with the hospitalist and will be admitted at this time. Treatment Plan: [] Disposition: Admission Impression: 1. Chronic lower extremity wound with cellulitis This note was generated with [employer] dictation software. It may contain incorrect words, spelling, and punctuation that were not noted in review of the chart prior to signing ED Disposition - Plan for ED Patient: Chief Complaint: Wound Referrals: Ac Felix [Primary Care Provider] -
[2017-06-04 16:01] LABS: Absolute Neutrophil Count 6.6 X10^3/uL (2.0-7.7); Basophil# 0.02 X10^3/uL; Basophil% 0.2 % (0-1); Eosinophil# 0.47 X10^3/uL; Eosinophils% 4.6 % (0-5); Hematocrit 38.4 % (40-54); Hemoglobin 12.5 g/dl (13.0-16.5); Lymphocyte % 17.7 % (19-41); Mean Corp Hgb Conc 32.6 g/gl (32-36); Mean Corpuscular Volume 86.1 fL (80-94); Mean Platelet Vol. 10.7 fl (6.2-12.0); Monocyte# 1.31 X10^3/uL; Monocyte% 12.9 % (0-10); Neutrophil # 6.55 X10^3/uL (2.7-7.7); Neutrophil % 64.4 % (47-70); Platelet Count 266 K/mm3 (150-450); RBC Distribution Width CV 13.2 % (11.6-14.6); RBC Distribution Width SD 40.9 fl (35.1-43.9); Red Blood Count 4.46 M/mm3 (4.6-6.2); White Blood Count 10.2 K/mm3 (4.4-11.0)
[2017-06-04 16:02] LABS: POSITIVE COUNT NO; POSITIVE DIFFERENTIAL NO; POSITIVE MORPHOLOGY NO
[2017-06-04 16:21] LABS: ALB/GLOB Ratio 0.5 RATIO (0.9-2.4); AST(SGOT) 19 U/L (15-37); Alanine Aminotransfer ALT/SGPT 21 U/L (16-61); Albumin, Serum 2.8 g/dL (3.2-5.0); Alkaline Phosphatase 77 U/L (45-117); Anion Gap 7 (5-15); BUN 54 mg/dL (7-18); BUN/Creat Ratio 30.7 RATIO (10-20); Calcium,Total 8.5 mg/dL (8.5-10.1); Chloride 104 mmol/L (98-107); Creatinine, Serum 1.76 mg/dL (0.70-1.30); EST Glomerular Filtration Rate 42 mL/min (>60); Est Glom Filt Rate - Afr Amer 51 mL/min (>60); Estimated Creatinine Clearance 54.84 ml/min; Globulin 5.6 g/dL (2.2-4.2); Glucose 176 mg/dL (74-106); Potassium 4.8 mmol/L (3.5-5.1); Protein, Total 8.4 g/dL (6.4-8.2); Sodium Level 137 mmol/L (136-145)
[2017-06-04 16:30] LABS: Lactic Acid 1.8 mmol/L (0.4-2.0)
--- NOTE | 2017-06-04 17:22 | NURSING ---
MED SURG CELLULITIS OF RT LOWER EXTREMITIES [place]
[2017-06-04 17:29] VITALS: BP 152/48; PULSE 59; RESP 18; O2SAT 95
--- NOTE | 2017-06-04 17:38 | RAD_ITS ---
STUDY: X-RAY - RIGHT TIBIA AND FIBULA REASON FOR EXAM: Male, 62 years old. Right lower leg infection. TECHNIQUE: 4 view(s) of the tibia and fibula were obtained. COMPARISON: July 25, 2016 FINDINGS: Normal visualized tibia. Normal visualized fibula. There are degenerative changes of the knee and ankle joint. There is diffuse soft tissue swelling. RAD/Tibia & Fibula 2 Views IMPRESSION: Degenerative changes. Diffuse soft tissue swelling. Electronically Signed: Alicia Starr MD at 18:53 EDT Tel , Service support ,
[2017-06-04 18:05] VITALS: BMI 49.4
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
[2017-06-04 19:49] VITALS: BMI 49.7
--- NOTE | 2017-06-04 21:05 | NURSING ---
Contacted pharmacy about additional 1000 mg of Vanc scheduled to be given tonight. They said not to adminster that dose since pt just received 2500 mg of Vanc in ER. They will be correcting MAR. Ritter, primary RN, aware.
[2017-06-04 21:48] VITALS: BP 143/57; PULSE 60; RESP 16; TEMP 37.1; O2SAT 100
[2017-06-04] MEDS: 0.9% Normal Saline 1,000 ML 75 ML IV (22:03)
[2017-06-04] MEDS: Piperacil/Tazobactam 3.375 GM/50 ML ML IV (23:10)
[2017-06-04] MEDS: Heparin Injection 5,000 UNITS/ML Syringe 5000 UNITS SC (23:16)
[2017-06-04 23:36] LABS: Bedside Glucose 220 mg/dL (70-110)
[2017-06-05] MEDS: Ascorbic Acid 500 MG Tablet 250 MG PO ×3 (00:40→22:46)
[2017-06-05 02:53] VITALS: BP 122/45; PULSE 60; RESP 16; TEMP 37.1; O2SAT 93
[2017-06-05] MEDS: Acetaminophen 500 MG Tablet 1000 MG PO (05:24)
[2017-06-05] MEDS: oxyCODONE 5 MG Tablet PO (05:25)
[2017-06-05] MEDS: Piperacil/Tazobactam 3.375 GM/50 ML ML IV ×3 (05:26→22:45)
[2017-06-05 06:07] LABS: Absolute Lymphocyte Count 0.94 X10^3/ul (0.83-4.51); Absolute Neutrophil Count 3.6 X10^3/uL (2.0-7.7); Basophil# 0.02 X10^3/uL; Basophil% 0.4 % (0-1); Eosinophil# 0.35 X10^3/uL; Eosinophils% 6.2 % (0-5); Hematocrit 35.6 % (40-54); Hemoglobin 11.6 g/dl (13.0-16.5); Lymphocyte # 0.94 X10^3/ul (4.0); Lymphocyte % 16.5 % (19-41); Mean Corp Hgb Conc 32.6 g/gl (32-36); Mean Corpuscular Hgb 28.3 pg (27.0-32.0); Mean Corpuscular Volume 86.8 fL (80-94); Mean Platelet Vol. 10.6 fl (6.2-12.0); Monocyte# 0.73 X10^3/uL; Monocyte% 12.8 % (0-10); Neutrophil # 3.63 X10^3/uL (2.7-7.7); Neutrophil % 63.7 % (47-70); Platelet Count 194 K/mm3 (150-450); RBC Distribution Width CV 13.2 % (11.6-14.6); RBC Distribution Width SD 40.9 fl (35.1-43.9); White Blood Count 5.7 K/mm3 (4.4-11.0)
[2017-06-05 06:11] LABS: POSITIVE COUNT NO; POSITIVE DIFFERENTIAL NO; POSITIVE MORPHOLOGY NO
[2017-06-05 06:24] LABS: Anion Gap 9 (5-15); BUN 44 mg/dL (7-18); BUN/Creat Ratio 28.6 RATIO (10-20); Calcium,Total 7.8 mg/dL (8.5-10.1); Chloride 108 mmol/L (98-107); Creatinine, Serum 1.54 mg/dL (0.70-1.30); EST Glomerular Filtration Rate 49 mL/min (>60); Est Glom Filt Rate - Afr Amer 59 mL/min (>60); Estimated Creatinine Clearance 61.06 ml/min; Glucose 263 mg/dL (74-106); Potassium 4.9 mmol/L (3.5-5.1); Sodium Level 137 mmol/L (136-145)
[2017-06-05 07:45] LABS: Bedside Glucose 267 mg/dL (70-110)
[2017-06-05 08:53] VITALS: BP 99/38; PULSE 60; RESP 18; TEMP 37.2; O2SAT 95
[2017-06-05 09:32] VITALS: BP 99/38; PULSE 60
[2017-06-05] MEDS: Heparin Injection 5,000 UNITS/ML Syringe 5000 UNITS SC ×2 (09:32→22:46)
[2017-06-05] MEDS: Aspirin 325 MG Tablet PO (09:32)
[2017-06-05] MEDS: Metoprolol(XL)Succ 50 MG Tablet PO (09:32)
--- NOTE | 2017-06-05 09:43 | PCM.RX.CS ---
Consult Pharmacy has been consulted to manage selected antiobiotic: Vancomycin Type of Consult: New start Suspected Infection: Skin/Soft tissue Prior Doses of Antibiotics Received/Current Regimen: Vancomycin 2500mg IV x1 in ED (06/04/17 @1728) Labs: Sodium 137 mmol/L (136-145) 06/05/17 05:28 Potassium 4.9 mmol/L (3.5-5.1) 06/05/17 05:28 Chloride 108 mmol/L (98-107) H 06/05/17 05:28 Carbon Dioxide 20.0 mmol/L (21.0-32.0) L 06/05/17 05:28 Anion Gap 9 (5-15) 06/05/17 05:28 BUN 44 mg/dL (7-18) H 06/05/17 05:28 Creatinine 1.54 mg/dL (0.70-1.30) H 06/05/17 05:28 Est GFR (MDRD) Af Amer 59 mL/min (>60) L 06/05/17 05:28 Est GFR (MDRD) Non-Af 49 mL/min (>60) L 06/05/17 05:28 BUN/Creatinine Ratio 28.6 RATIO (10-20) H 06/05/17 05:28 Glucose 263 mg/dL (74-106) H 06/05/17 05:28 Microbiology: BCx: Pending Weight used for dosin kg Estimated Creatinine Clearance: 61mL/min Goal Trough: 10-15 mcg/mL Pharmacy Plan for Drug Dosing: Pharmacy to manage vancomycin per consult for the treatment of suspected cellulitis.The patient also had a chronic diabetic wound per H/P, for which he sees wound care. The patient has had an improvement in renal function since admission (SCr 1.76 to 1.54 this AM). Given his improvement in renal function, the patient qualifies for Q12hr dosing. PLAN/RECOMMENDATION 1. START vancomycin 2000mg IV Q12hr 2. Stop vancomycin 2000mg IV Q24hrs 3. Trough scheduled for 06/06/17 @2230 (Prior to 4th dose of Q12hr regimen) 4. Pharmacy will continue to monitor renal function, microbiology, and troughs and will make changes as appropriate.
--- NOTE | 2017-06-05 10:32 | PCM.PROGNOTE ---
Subjective: Chief complaint: Follow-up after admission for questionable right leg cellulitis, patient had recent debridement in context of history of chronic bilateral lower extremity diabetic ulcers. Patient seen and examined. No acute events overnight. This was admitted yesterday because of worsening right leg erythema after he had anicteric chronic wounds/ulcer debridement. He did complain of right leg pain as well. This morning, he complained of cough with clear sputum as well as sore throat and nasal congestion. Denies fever chills. No chest pain or shortness of breath. His vital signs are stable, afebrile. - Physical Exam General: Alert, Oriented x3, Cooperative, No apparent distress HEENT: Atraumatic, PERRLA, EOMI Oral: Moist Mucosa, No Gingival or Mucosal Lesions/ Ulcerations Neck: Supple, No JVD, Negative Carotid Bruits, Trachea Midline, Thyroid Normal Size and Texture Lungs: Clear to auscultation, No rhonchi, No wheeze, No rales, Diminished Cardiovascular: Regular rate, Regular Rhythm, Normal S1, Normal S2, No murmurs Abdomen: Bowel Sounds Present, Soft, Non Tender, Non-Distended, No Hepato-splenomegaly, Obese Extremities: No clubbing, No cyanosis Skin: No rashes, Ulcer/ Wound - Chronic bilateral leg ulcers, dressed. Lymphatic: No Cervical, Supraclavicular, or Inguinal Adenopathy Neurological: Cranial nerves II-XII grossly intact, Motor Exam 5/5 strength throughout Psych/Mental Status: Normal Affect, Appropriate Vital Signs Temp Pulse Resp BP Pulse Ox 99.0 F 60 18 99/38 L 95 06/05/17 08:53 06/05/17 09:32 06/05/17 08:53 06/05/17 09:32 06/05/17 08:53 Oxygen Delivery Method Room Air Weight: 418 lb 14.052 oz Body Mass Index (BMI) 49.7 Intake and Output for Last 24 Hours 06/03/17 06/04/17 06/05/17 23:59 23:59 23:59 Intake Total 2316 / 2316 Output Total 1500 / 1500 Balance 816 / 816 Laboratory Tests Past 24 Hrs 06/05/17 06/05/17 05:28 05:28 WBC 5.7 RBC 4.10 L Hgb 11.6 L Hct 35.6 L MCV 86.8 MCH 28.3 MCHC 32.6 RDW 13.2 RDW Differential 40.9 Plt Count 194 MPV 10.6 Immature Gran % (Auto) 0.400 Neut % (Auto) 63.7 Lymph % (Auto) 16.5 L Josephine % (Auto) 12.8 H Eos % (Auto) 6.2 H Baso % (Auto) 0.4 Absolute Neuts (auto) 3.6 Absolute Lymphs (auto) 0.94 Total Counted Not Reportable Sodium 137 Potassium 4.9 Chloride 108 H Carbon Dioxide 20.0 L Anion Gap 9 BUN 44 H Creatinine 1.54 H Estim Creat Clear Calc 61.06 Est GFR (MDRD) Af Amer 59 L Est GFR (MDRD) Non-Af 49 L BUN/Creatinine Ratio 28.6 H Glucose 263 H Calcium 7.8 L POC Glucose 06/05/17 06/04/17 07:42 23:16 POC Glucose 267 H 220 H Clinical Impression(s) from Imaging Studies Tibia/Fibula X-Ray 06/04/17 17:38 IMPRESSION: Degenerative changes. Diffuse soft tissue swelling. Electronically Signed: Alicia Starr MD at 18:53 EDT Tel , Service support , Medical Necessity - Tobacco Use Smoking Status: Never smoker Assessment/Plan This is a 62 years old male patient presented to the emergency room because of increasing redness of the right lower extremity after he underwent bilateral subcutaneous excision and debridement of right and diabetic ulcers that was done on June 03, 2017 and he was admitted because of questionable right lower extremity cellulitis in context of chronic nonhealing ulcers of the right leg. #1 questionable right lower extremity cellulitis: In context of chronic bilateral delayed healing leg ulcers as well as new right leg ulcers, underwent subcutaneous excisional debridement one day before admission by podiatry medicine. He is on IV vancomycin and Zosyn. His vital signs are stable, afebrile. He has no leukocytosis, routine blood work is remarkable for chronic anemia and creatinine of 1.54. Lactic acid was normal. Blood cultures are pending. Plan: Continue IV antibiotics, wound culture, podiatry consult. #2 acute kidney injury on top of stage III chronic kidney disease: His baseline creatinine has been around 1.2-1.4 mg/dL. Admission creatinine was 1.76, came down to 1.54 with IV fluids. Plan to continue IV fluids, repeat BMP tomorrow morning. #3 chronic bilateral lower extremity diabetic nonhealing ulcers/wounds/history of osteomyelitis: With multiple admissions to the hospital follow-up with wound care center. Plan as above. #4 type 2 diabetes mellitus: ADA diet, Accu-Cheks, insulin 7 scale, continue Levemir insulin nightly. #5 hypertension: Blood pressure stable, continue metoprolol, keep holding lisinopril. #6 chronic anemia: Secondary to anemia of chronic disease. Baseline hemoglobin has been around 11-12 g/dL, admission hemoglobin is 12.5 g/dL, stable at baseline. #7 DVT prophylaxis: Subcu heparin. This note was generated with [employer] dictation software. It may contain incorrect words, spelling, and punctuation that were not noted in checking the note before signing.
--- NOTE | 2017-06-05 10:36 | PN_ITS ---
Subjective: Chief complaint: Follow-up after admission for questionable right leg cellulitis , patient had recent debridement in context of history of chronic bilateral lower extremity diabetic ulcers. Patient seen and examined. No acute events overnight. This was admitted yesterday because of worsening right leg erythema after he had anicteric chronic wounds/ulcer debridement. He did complain of right leg pain as well. This morning, he complained of cough with clear sputum as well as sore throat and nasal congestion. Denies fever chills. No chest pain or shortness of breath. His vital signs are stable, afebrile. - Physical Exam General: Alert, Oriented x3, Cooperative, No apparent distress HEENT: Atraumatic, PERRLA, EOMI Oral: Moist Mucosa, No Gingival or Mucosal Lesions/ Ulcerations Neck: Supple, No JVD, Negative Carotid Bruits, Trachea Midline, Thyroid Normal Size and Texture Lungs: Clear to auscultation, No rhonchi, No wheeze, No rales, Diminished Cardiovascular: Regular rate, Regular Rhythm, Normal S1, Normal S2, No murmurs Abdomen: Bowel Sounds Present, Soft, Non Tender, Non-Distended, No Hepato- splenomegaly, Obese Extremities: No clubbing, No cyanosis Skin: No rashes, Ulcer/ Wound - Chronic bilateral leg ulcers, dressed. Lymphatic: No Cervical, Supraclavicular, or Inguinal Adenopathy Neurological: Cranial nerves II-XII grossly intact, Motor Exam 5/5 strength throughout Psych/Mental Status: Normal Affect, Appropriate Vital Signs Temp Pulse Resp BP Pulse Ox 99.0 F 60 18 99/38 L 95 06/05/17 08:53 06/05/17 09:32 06/05/17 08:53 06/05/17 09:32 06/05/17 08:53 Oxygen Delivery Method Room Air Weight: 418 lb 14.052 oz Body Mass Index (BMI) 49.7 Intake and Output for Last 24 Hours 06/03/17 06/04/17 06/05/17 23:59 23:59 23:59 Intake Total 2316 / 2316 Output Total 1500 / 1500 Balance 816 / 816 Laboratory Tests Past 24 Hrs 06/05/17 06/05/17 05:28 05:28 WBC 5.7 RBC 4.10 L Hgb 11.6 L Hct 35.6 L MCV 86.8 MCH 28.3 MCHC 32.6 RDW 13.2 RDW Differential 40.9 Plt Count 194 MPV 10.6 Immature Gran % (Auto) 0.400 Neut % (Auto) 63.7 Lymph % (Auto) 16.5 L Kenton % (Auto) 12.8 H Eos % (Auto) 6.2 H Baso % (Auto) 0.4 Absolute Neuts (auto) 3.6 Absolute Lymphs (auto) 0.94 Total Counted Not Reportable Sodium 137 Potassium 4.9 Chloride 108 H Carbon Dioxide 20.0 L Anion Gap 9 BUN 44 H Creatinine 1.54 H Estim Creat Clear Calc 61.06 Est GFR (MDRD) Af Amer 59 L Est GFR (MDRD) Non-Af 49 L BUN/Creatinine Ratio 28.6 H Glucose 263 H Calcium 7.8 L POC Glucose 06/05/17 06/04/17 07:42 23:16 POC Glucose 267 H 220 H Clinical Impression(s) from Imaging Studies Tibia/Fibula X-Ray 06/04/17 17:38 IMPRESSION: Degenerative changes. Diffuse soft tissue swelling. Electronically Signed: Alicia Starr MD at 18:53 EDT Tel , Service support , Medical Necessity - Tobacco Use Smoking Status: Never smoker Assessment/Plan This is a 62 years old male patient presented to the emergency room because of increasing redness of the right lower extremity after he underwent bilateral subcutaneous excision and debridement of right and diabetic ulcers that was done on June 03, 2017 and he was admitted because of questionable right lower extremity cellulitis in context of chronic nonhealing ulcers of the right leg. #1 questionable right lower extremity cellulitis: In context of chronic bilateral delayed healing leg ulcers as well as new right leg ulcers, underwent subcutaneous excisional debridement one day before admission by podiatry medicine. He is on IV vancomycin and Zosyn. His vital signs are stable, afebrile. He has no leukocytosis, routine blood work is remarkable for chronic anemia and creatinine of 1.54. Lactic acid was normal. Blood cultures are pending. Plan: Continue IV antibiotics, wound culture, podiatry consult. #2 acute kidney injury on top of stage III chronic kidney disease: His baseline creatinine has been around 1.2-1.4 mg/dL. Admission creatinine was 1.76, came down to 1.54 with IV fluids. Plan to continue IV fluids, repeat BMP tomorrow morning. #3 chronic bilateral lower extremity diabetic nonhealing ulcers/wounds/history of osteomyelitis: With multiple admissions to the hospital follow-up with wound care center. Plan as above. #4 type 2 diabetes mellitus: ADA diet, Accu-Cheks, insulin 7 scale, continue Levemir insulin nightly. #5 hypertension: Blood pressure stable, continue metoprolol, keep holding lisinopril. #6 chronic anemia: Secondary to anemia of chronic disease. Baseline hemoglobin has been around 11-12 g/dL, admission hemoglobin is 12.5 g/dL, stable at baseline. #7 DVT prophylaxis: Subcu heparin. This note was generated with [employer] dictation software. It may contain incorrect words, spelling, and punctuation that were not noted in checking the note before signing.
--- NOTE | 2017-06-05 10:52 | RAD_ITS ---
STUDY: X-RAY CHEST REASON FOR EXAM: Male, 62 years old. Bronchitis. TECHNIQUE: Single AP portable view of the chest. COMPARISON: 07/30/2016 FINDINGS: Lungs are adequately inflated. Slightly increased bronchovascular congestion in the perihilar region. Questionable left lower lobe infiltrate. There is mild cardiac enlargement. Normal mediastinum and milagros. Normal visualized pulmonary arteries. There is atherosclerotic tortuosity of the aortic arch and descending thoracic aorta. There are diffuse degenerative changes of the visualized thoracic spine. Normal visualized ribs, clavicles, and shoulders. There is no demonstrated abnormality of the visualized soft tissue structures of the upper abdomen. RAD/Chest 1 View (Portable) IMPRESSION: Questionable left lower lobe infiltrate. Central bronchovascular congestion Electronically Signed: Charles Rodriguez DO at 11:50 EDT Tel , Service support ,
--- NOTE | 2017-06-05 11:30 | CASEMGMT ---
JANA LOPEZ Face to Face with patient for initial transition planning/care coordination assessment. JANA LOPEZ introduced self and role at [facility]. Patient lying in bed, alert and oriented. Patient willing to participate in assessment and is able to answer all questions appropriately. Care providers, pharmacy, and demographics verified. See link attached. Patient wishes to discharge home with resumption of [facility] services for wound care. Patient states his HHC company is [employer]. Resumption of care faxed to [employer]. Patient state he is in process of setting up passport services. Patient states he follows up at the wound clinic. Patient states he has no further needs or concerns at this time. CM to follow for discharge planning needs that may arise. Disposition Plan: Patient to discharge home with [facility], family support, and follow-up plans in place.
[2017-06-05] MEDS: 0.9% Normal Saline 1,000 ML 75 ML IV (11:38)
[2017-06-05 12:05] LABS: Bedside Glucose 244 mg/dL (70-110)
[2017-06-05 14:20] VITALS: BP 115/53; PULSE 50; RESP 18; TEMP 36.7; O2SAT 97
[2017-06-05 16:31] LABS: Bedside Glucose 129 mg/dL (70-110)
--- NOTE | 2017-06-05 19:15 | PN_ITS ---
Patient Problems: Active and Suspected Problems Ulcer of left lower extremity with fat layer exposed (Acute) Ulcer of right lower extremity with fat layer exposed (Acute) Type 2 diabetes mellitus with diabetic polyneuropathy (Acute) Lower extremity edema (Acute) Obesity (Acute) Subjective: This 62 year old diabetic male was consulted to podiatry after being admitted last evening through the ER for cellulitis of the right leg. Patient is known to Dr. Hernández as she sees the patient on a weekly basis at the wound healing center for chronic ulcers to both lower extremities. Ultrasound was done in the ER and revealed a blood clot. Patient has been on heparin and vanc and zosyn. Patient says that his leg looks much better in appearance than it did yesterday. He said the redness has decreased significantly in intensity. Patient says he is feeling well. He has an appetite. He denies any feelings of nausea, vomiting, fever, chills, or shortness of breath currently. - Physical Exam General: Alert, Oriented x3, Cooperative, No apparent distress Extremities: Capillary Refill Less than 3 Seconds, Diminished Peripheral Pulses - DP and PT pulses non palpable bilateral due to edema., Edema - bilateral lower extremity edema Skin: Ulcer/ Wound - Patient has ulcer to anterior right bernstein, right proximal dorsal foot, right plantar heel, and right posterior lower leg. There is no probing, tracking, or undermining appreciated to any of these ulcers. There is no purulence, no malodor, or significantly increased warmth appreciated to any of the ulcers. There is some erythema to right lower leg, however this has improved since yesterday as the patient says it was much worse yesterday. There is some adherent slough, granular tissue, and fibrin appreciated to ulcers on the right, with more adherent slough noted to the proximal doral foot ulcer. No fluctuance or crepitus appreciated. There is hemosiderin staining noted to bilateral lower extremities. There is a small dehiscence of the distal TMA site on the left as well as a lower posterior leg ulcer to the left as well. There is a mixture of granular tissue and slough to the base of each. There is no significant probing, tracking, or undermining noted. No purulence or malodor. No extending cellulitis or increase in warmth to the left. Musculoskeletal: No Tenderness to Palpation of Joints or Extremities, - - Compartments of lower extremity are soft. 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 Neurological: - - epicritic sensation grossly absent from bilateral lower extremities Psych/Mental Status: Normal Affect, Appropriate Vital Signs Temp Pulse Resp BP Pulse Ox 98.0 F 50 L 18 115/53 L 97 06/05/17 14:20 06/05/17 14:20 06/05/17 14:20 06/05/17 14:20 06/05/17 14:20 Oxygen Delivery Method Room Air Weight: 190 kg Body Mass Index (BMI) 49.7 Intake and Output for Last 24 Hours 06/03/17 06/04/17 06/05/17 23:59 23:59 23:59 Intake Total 4874 / 4874 Output Total 2500 / 2500 Balance 2374 / 2374 Microbiology Past 72 Hours 06/05/17 11:00 Respiratory Panel (PCR) - Final Mucosa - Nose Rhinovirus Laboratory Tests Past 24 Hrs 06/05/17 06/05/17 05:28 05:28 WBC 5.7 RBC 4.10 L Hgb 11.6 L Hct 35.6 L MCV 86.8 MCH 28.3 MCHC 32.6 RDW 13.2 RDW Differential 40.9 Plt Count 194 MPV 10.6 Immature Gran % (Auto) 0.400 Neut % (Auto) 63.7 Lymph % (Auto) 16.5 L [place] % (Auto) 12.8 H Eos % (Auto) 6.2 H Baso % (Auto) 0.4 Absolute Neuts (auto) 3.6 Absolute Lymphs (auto) 0.94 Total Counted Not Reportable Sodium 137 Potassium 4.9 Chloride 108 H Carbon Dioxide 20.0 L Anion Gap 9 BUN 44 H Creatinine 1.54 H Estim Creat Clear Calc 61.06 Est GFR (MDRD) Af Amer 59 L Est GFR (MDRD) Non-Af 49 L BUN/Creatinine Ratio 28.6 H Glucose 263 H Calcium 7.8 L POC Glucose 06/05/17 06/05/17 06/05/17 16:05 11:49 07:42 POC Glucose 129 H 244 H 267 H 06/04/17 23:16 POC Glucose 220 H Medical Necessity - Tobacco Use Smoking Status: Never smoker Assessment/Plan Active and Suspected Problems Ulcer of left lower extremity with fat layer exposed (Acute) Ulcer of right lower extremity with fat layer exposed (Acute) Type 2 diabetes mellitus with diabetic polyneuropathy (Acute) Lower extremity edema (Acute) Obesity (Acute) Ulcers of bilateral lower extremities Blood clot left lower leg DMII Lower extremity edema Patient was examined and evaluated bedside. Patient has long history of non compliance. He was seen in wound healing center two days ago by Dr. Hernández who performed bilateral debridements and applied regranex to the right heel and left TMA site and applied fibricol to the remaining ulcer sites. She felt some of his recently opened ulcers have been caused by dressings applied too tightly by home health. Patient is currently being treated for left DVT in gastroc vein with heparin. Patient is also being treated with vanc and zosyn. Both aerobic and anaerobic wound cultures were taken this evening and will monitor for the results. 3 view left foot x-ray will also be ordered and the results will be reviewed. Tib-fib xray series was taken yesterday and showed degenerative changes and soft tissue swelling. Blood cultures are pending. Vital signs are currently stable. WBC is 5.7. Ulcer today were cleansed and carefully dressed with adaptic to the base of all ulcers, followed by 4x4's, adaptic, and kerlix. Dressing can be reinforced if necessary. No significant compression applied. Patient to keep pressue off of ulcer sites. Will continue to monitor this patient while in house. Upon discharge, patient can resume seeing Dr. Hernández at the wound healing center as scheduled. Please contact with any questions or concerns.
--- NOTE | 2017-06-05 20:40 | RAD_ITS ---
STUDY: X-RAY - RIGHT FOOT CLINICAL: Male, 62 years old. Foot ulcer TECHNIQUE: 3 view(s) of the foot. COMPARISON: 06/11/2017 right foot x-ray FINDINGS: There is a plantar spur. There is an Achilles spur. There are vascular calcifications. There is degenerative change in the ankle joint. There is soft tissue swelling. Normal visualized subtalar, talonavicular, calcaneocuboid, tarsal and tarsometatarsal articulations. Normal second through fifth metatarsi. There is been a amputation of the first digit at the metatarsal phalangeal joints similar to prior study. There is a greater edematous appearance of the soft tissues overlying the metatarsal. There is a visualized rounded lucencies suggesting probable ulceration. There is no definitive evidence of adjacent bony erosion. There is minimal focal soft tissue calcification. RAD/Foot min 3 Views IMPRESSION: Rounded soft tissue ulceration. No definitive evidence of underlying bony erosion. Degenerative changes detailed above status post resection of the first digit at the metatarsophalangeal joint.. Electronically Signed: Francoise Toledo MD at 1:03 EDT Tel , Service support ,
[2017-06-05 22:53] VITALS: BP 140/42; PULSE 58; RESP 18; TEMP 37.3; O2SAT 97
[2017-06-05 23:31] LABS: Bedside Glucose 278 mg/dL (70-110)
[2017-06-06] VITALS (7 sets, daily range): BP systolic 130–154; BP diastolic 43–65; PULSE 56–63; RESP 16–18; TEMP 36.3–36.7; O2SAT 94–96
[2017-06-06] MEDS: oxyCODONE 5 MG Tablet PO (03:43)
[2017-06-06] MEDS: Acetaminophen 500 MG Tablet 1000 MG PO (03:44)
[2017-06-06] MEDS: Piperacil/Tazobactam 3.375 GM/50 ML ML IV ×3 (05:16→22:48)
[2017-06-06] MEDS: 0.9% Normal Saline 1,000 ML 75 ML IV ×2 (06:34→22:48)
[2017-06-06 07:46] LABS: Absolute Lymphocyte Count 1.75 X10^3/ul (0.83-4.51); Absolute Neutrophil Count 2.8 X10^3/uL (2.0-7.7); Basophil# 0.02 X10^3/uL; Basophil% 0.4 % (0-1); Eosinophil# 0.41 X10^3/uL; Eosinophils% 7.2 % (0-5); Hematocrit 34.6 % (40-54); Hemoglobin 11.2 g/dl (13.0-16.5); Lymphocyte # 1.75 X10^3/ul (4.0); Lymphocyte % 30.6 % (19-41); Mean Corp Hgb Conc 32.4 g/gl (32-36); Mean Corpuscular Hgb 28.3 pg (27.0-32.0); Mean Corpuscular Volume 87.4 fL (80-94); Mean Platelet Vol. 10.1 fl (6.2-12.0); Monocyte# 0.71 X10^3/uL; Monocyte% 12.4 % (0-10); Neutrophil # 2.81 X10^3/uL (2.7-7.7); Neutrophil % 49.2 % (47-70); POSITIVE COUNT NO; POSITIVE DIFFERENTIAL NO; POSITIVE MORPHOLOGY NO; Platelet Count 186 K/mm3 (150-450); RBC Distribution Width SD 40.9 fl (35.1-43.9); Red Blood Count 3.96 M/mm3 (4.6-6.2); White Blood Count 5.7 K/mm3 (4.4-11.0)
[2017-06-06 07:55] LABS: Bedside Glucose 256 mg/dL (70-110)
[2017-06-06 07:57] LABS: Anion Gap 5 (5-15); BUN 39 mg/dL (7-18); Calcium,Total 8.1 mg/dL (8.5-10.1); Chloride 107 mmol/L (98-107); Creatinine, Serum 1.77 mg/dL (0.70-1.30); EST Glomerular Filtration Rate 42 mL/min (>60); Est Glom Filt Rate - Afr Amer 50 mL/min (>60); Estimated Creatinine Clearance 54.53 ml/min; Glucose 285 mg/dL (74-106); Potassium 5.4 mmol/L (3.5-5.1); Sodium Level 136 mmol/L (136-145)
[2017-06-06] MEDS: Aspirin 325 MG Tablet PO (08:46)
[2017-06-06] MEDS: Ascorbic Acid 500 MG Tablet 250 MG PO ×2 (09:07→22:47)
[2017-06-06] MEDS: Metoprolol(XL)Succ 50 MG Tablet PO (09:08)
[2017-06-06] MEDS: Sodium Polystyrene Sulfonate 15 GM/60 ML UDC 30 GM PO (09:09)
[2017-06-06] MEDS: Heparin Injection 5,000 UNITS/ML Syringe 5000 UNITS SC ×2 (09:09→22:47)
--- NOTE | 2017-06-06 09:21 | PCM.PROGNOTE ---
Patient Problems: Active and Suspected Problems Obesity (Acute) Lower extremity edema (Acute) Type 2 diabetes mellitus with diabetic polyneuropathy (Acute) Ulcer of right lower extremity with fat layer exposed (Acute) Ulcer of left lower extremity with fat layer exposed (Acute) Subjective: Chief complaint: Follow-up after admission for questionable right leg cellulitis and isolated DVT of the right gastrocnemius vein. Patient seen and examined. No acute events overnight. Today, he mentioned that his right leg pain is getting better. He has been afebrile overnight. Denied any other complaints. His vital signs are stable. - Physical Exam General: Alert, Oriented x3, Cooperative, No apparent distress HEENT: Atraumatic, PERRLA, EOMI Oral: Moist Mucosa, No Gingival or Mucosal Lesions/ Ulcerations Neck: Supple, No JVD, Negative Carotid Bruits, Trachea Midline, Thyroid Normal Size and Texture Lungs: Clear to auscultation, No rhonchi, No wheeze, No rales, Diminished Cardiovascular: Regular rate, Regular Rhythm, Normal S1, Normal S2, PMI Normal Abdomen: Bowel Sounds Present, Soft, Non Tender, Non-Distended, No Hepato-splenomegaly, Obese Extremities: No clubbing, No cyanosis, - - Chronic bilateral leg edema/stasis dermatitis. Chronic bilateral leg ulcers. Skin: No rashes, Ulcer/ Wound Lymphatic: No Cervical, Supraclavicular, or Inguinal Adenopathy Neurological: Cranial nerves II-XII grossly intact, Neuro grossly intact Psych/Mental Status: Normal Affect, Appropriate Vital Signs Temp Pulse Resp BP Pulse Ox 97.4 F L 61 18 153/64 H 95 06/06/17 08:40 06/06/17 09:08 06/06/17 08:40 06/06/17 09:08 06/06/17 08:40 Oxygen Delivery Method Room Air Weight: 418 lb 14.052 oz Body Mass Index (BMI) 49.7 Intake and Output for Last 24 Hours 06/04/17 06/05/17 06/06/17 23:59 23:59 23:59 Intake Total 4874 / 4874 1950 / 1950 Output Total 2500 / 2500 2100 / 2100 Balance 2374 / 2374 -150 / -150 Microbiology Past 72 Hours 06/05/17 11:00 Respiratory Panel (PCR) - Final Mucosa - Nose Rhinovirus Laboratory Tests Past 24 Hrs 06/06/17 06/06/17 07:27 07:27 WBC 5.7 RBC 3.96 L Hgb 11.2 L Hct 34.6 L MCV 87.4 MCH 28.3 MCHC 32.4 RDW 13.0 RDW Differential 40.9 Plt Count 186 MPV 10.1 Immature Gran % (Auto) 0.200 Neut % (Auto) 49.2 Lymph % (Auto) 30.6 [place] % (Auto) 12.4 H Eos % (Auto) 7.2 H Baso % (Auto) 0.4 Absolute Neuts (auto) 2.8 Absolute Lymphs (auto) 1.75 Total Counted Not Reportable Sodium 136 Potassium 5.4 H Chloride 107 Carbon Dioxide 24.0 Anion Gap 5 BUN 39 H Creatinine 1.77 H Estim Creat Clear Calc 54.53 Est GFR (MDRD) Af Amer 50 L Est GFR (MDRD) Non-Af 42 L BUN/Creatinine Ratio 22.0 H Glucose 285 H Calcium 8.1 L POC Glucose 06/06/17 06/05/17 06/05/17 07:47 22:44 16:05 POC Glucose 256 H 278 H 129 H 06/05/17 11:49 POC Glucose 244 H Medical Necessity - Tobacco Use Smoking Status: Never smoker Assessment/Plan Active and Suspected Problems Obesity (Acute) Lower extremity edema (Acute) Type 2 diabetes mellitus with diabetic polyneuropathy (Acute) Ulcer of right lower extremity with fat layer exposed (Acute) Ulcer of left lower extremity with fat layer exposed (Acute) This is a 62 years old male patient presented to the emergency room because of increasing redness of the right lower extremity after he underwent bilateral subcutaneous excision and debridement of right and diabetic ulcers that was done on June 03, 2017 and he was admitted because of questionable right lower extremity cellulitis in context of chronic nonhealing ulcers of the right leg. #1 questionable right lower extremity cellulitis: He is on IV vancomycin and Zosyn. His vital signs are stable, afebrile, no leukocytosis. He had a history of chronic bilateral delayed healing leg ulcers as well as new right leg ulcers, underwent subcutaneous excisional debridement one day before admission by podiatry medicine. Lactic acid was normal. Blood cultures and wound are pending. He was seen by podiatry medicine yesterday, recommended to continue IV antibiotics, no plan for surgery or debridement at this time. Plan: Continue IV antibiotics. #2 acute kidney injury on top of stage III chronic kidney disease/hyperkalemia: His baseline creatinine has been around 1.2-1.4 mg/dL. Admission creatinine was 1.76. Yesterday, creatinine slightly improved but today, it is worsened, today's creatinine 1.77. Potassium is 5.4. Patient is on IV fluids. This is could be because of IV vancomycin. Plan: Continue IV fluids, Kayexalate ?1, repeat BMP tomorrow morning, repeat potassium at 8 PM tonight. #3 acute DVT of the right extremities vein: No indication for treatment, this is isolated DVT distal to the popliteal vein. Recommendation is to treat, not treat with monitoring. He is on DVT prophylaxis. #4 chronic bilateral lower extremity diabetic nonhealing ulcers/wounds/history of osteomyelitis: With multiple admissions to the hospital follow-up with wound care center. Plan as above. #5 type 2 diabetes mellitus: Blood sugar has been in the range of 200s, continue ADA diet, Accu-Cheks, insulin 7 scale, continue Levemir insulin nightly. #6 hypertension: Blood pressure stable, continue metoprolol, keep holding lisinopril. #7 chronic anemia: Secondary to anemia of chronic disease. Baseline hemoglobin has been around 11-12 g/dL, admission hemoglobin is 12.5 g/dL, today's hemoglobin is 11.2 g/dL, stable at baseline. #8 DVT prophylaxis: Subcu heparin. This note was generated with [employer] dictation software. It may contain incorrect words, spelling, and punctuation that were not noted in checking the note before signing. Code Visit Inpatient E&M: 09517 Subs Hosp L2
[2017-06-06 13:16] LABS: Bedside Glucose 196 mg/dL (70-110)
--- NOTE | 2017-06-06 14:18 | PN_ITS ---
Patient Problems: Active and Suspected Problems Obesity (Acute) Lower extremity edema (Acute) Type 2 diabetes mellitus with diabetic polyneuropathy (Acute) Ulcer of right lower extremity with fat layer exposed (Acute) Ulcer of left lower extremity with fat layer exposed (Acute) Subjective: Patient was examined and evaluated again bedside this afternoon. He is resting comfortably. He says he continues to feel better and says that he still has no pain today to his left lower extremity. He continues to have an appetite and again denies any feelings of nausea, vomiting, fever, or chills today. - Physical Exam General: Alert, Oriented x3, Cooperative, No apparent distress Extremities: Capillary Refill Less than 3 Seconds, Diminished Peripheral Pulses - DP and PT pulses non palpable due to edema, Edema - bilateral lower extremity edema. Skin: Ulcer/ Wound - Patient has ulcer to anterior right bernstein, right proximal dorsal foot, right plantar heel, and right posterior lower leg. There continues to be no probing, tracking, or undermining appreciated to any of these ulcers. There continues no purulence, no malodor, or significantly increased warmth appreciated to any of the ulcers. There is some serous drainage appreciated to the dressing. No strikethrough noted. There is some erythema to right lower leg , however this has improved again since yesterday. There is some adherent slough , granular tissue, and fibrin appreciated to ulcers on the right, with more adherent slough noted to the proximal doral foot ulcer. Still no fluctuance or crepitus appreciated. There is hemosiderin staining noted to bilateral lower extremities. There is a small dehiscence of the distal TMA site on the left as well as a lower posterior leg ulcer to the left as well. There is a mixture of granular tissue and slough to the base of each. There is no significant probing , tracking, or undermining noted. No purulence or malodor. No extending cellulitis or increase in warmth to the left. No worsening of ulcers to either foot or leg since seen yesterday evening. Musculoskeletal: No Tenderness to Palpation of Joints or Extremities, - - Compartments of lower extremity are soft. 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 Neurological: - - epicritic sensation grossly absent to bilateral lower extremities Psych/Mental Status: Normal Affect, Appropriate Vital Signs Temp Pulse Resp BP Pulse Ox 97.4 F L 61 18 153/64 H 95 06/06/17 08:40 06/06/17 09:08 06/06/17 08:40 06/06/17 09:08 06/06/17 08:40 Oxygen Delivery Method Room Air Weight: 190 kg Body Mass Index (BMI) 49.7 Intake and Output for Last 24 Hours 06/04/17 06/05/17 06/06/17 23:59 23:59 23:59 Intake Total 4874 / 4874 2680 / 2680 Output Total 2500 / 2500 2650 / 2650 Balance 2374 / 2374 30 Microbiology Past 72 Hours 06/05/17 18:15 Wound Culture - Preliminary Wound - Aerobic & Anaerobic Swabs Gram negative vidal Staphylococcus aureus 06/05/17 11:00 Respiratory Panel (PCR) - Final Mucosa - Nose Rhinovirus Laboratory Tests Past 24 Hrs 06/06/17 06/06/17 07:27 07:27 WBC 5.7 RBC 3.96 L Hgb 11.2 L Hct 34.6 L MCV 87.4 MCH 28.3 MCHC 32.4 RDW 13.0 RDW Differential 40.9 Plt Count 186 MPV 10.1 Immature Gran % (Auto) 0.200 Neut % (Auto) 49.2 Lymph % (Auto) 30.6 [place] % (Auto) 12.4 H Eos % (Auto) 7.2 H Baso % (Auto) 0.4 Absolute Neuts (auto) 2.8 Absolute Lymphs (auto) 1.75 Total Counted Not Reportable Sodium 136 Potassium 5.4 H Chloride 107 Carbon Dioxide 24.0 Anion Gap 5 BUN 39 H Creatinine 1.77 H Estim Creat Clear Calc 54.53 Est GFR (MDRD) Af Amer 50 L Est GFR (MDRD) Non-Af 42 L BUN/Creatinine Ratio 22.0 H Glucose 285 H Calcium 8.1 L POC Glucose 06/06/17 06/06/17 06/05/17 13:08 07:47 22:44 POC Glucose 196 H 256 H 278 H 06/05/17 16:05 POC Glucose 129 H Medical Necessity - Tobacco Use Smoking Status: Never smoker Assessment/Plan Active and Suspected Problems Obesity (Acute) Lower extremity edema (Acute) Type 2 diabetes mellitus with diabetic polyneuropathy (Acute) Ulcer of right lower extremity with fat layer exposed (Acute) Ulcer of left lower extremity with fat layer exposed (Acute) Ulcers of bilateral lower extremities Blood clot left lower leg DMII Lower extremity edema Patient was again examined and evaluated bedside this afternoon. Patient has long history of non compliance. He was seen in wound healing center two days ago by Dr. Hernández who performed bilateral debridements and applied regranex to the right heel and left TMA site and applied fibricol to the remaining ulcer sites. She felt some of his recently opened ulcers have been caused by dressings applied too tightly by home health. Patient is currently being treated for left DVT in gastroc vein with heparin. Patient is also being treated with vanc and zosyn. Deep wound cultures are currently showing growth of staph aureus and gram negative rods. Tib-fib xray series was taken yesterday and showed degenerative changes and soft tissue swelling. 3 view foot x ray taken yesterday was reviewed and the report was read as rounded soft tissue ulceration with no definitive evidence of underlying bony erosion. Degenerative changes status post resection of hallux at the 1st MPJ. Blood cultures are still pending. Patient remains afebrile. WBC is still 5.7 today. Ulcer today were cleansed and carefully dressed with adaptic to the base of all ulcers, followed by 4x4's, adaptic, and kerlix. Dressing can be reinforced if necessary. No significant compression applied. Patient to keep pressue off of ulcer sites. Will continue to monitor this patient while in house. Upon discharge, patient can resume seeing Dr. Hernández at the wound healing center as scheduled. Please contact with any questions or concerns
--- NOTE | 2017-06-06 16:06 | NURSING ---
IN TO DC IV FOR INFILTRATION. PT VERBALIZED THEY'RE GOING TO HAVE TO PUT IN A PICC LINE INFORMED PATIENT, NO ONE IS HERE TO PLACE A PICC LINE NOW. DISCUSSED DIFFICULT STICK. PT AGREEABLE IV ATTEMPT WITH VEIN FINDER. VEIN FINDER LOCATED AND TAKEN TO PATIENT'S ROOM. PT VERBALIZED HE IS NOT HAPPY WITH CLINICAL TECHNICIAN PARKING, EXPLAINED HIS CAR IS LOCATED IN FRONT OF HOSPITAL THAT CLINICAL TECHNICIAN LITOG REFUSED TO RELOCATE HIS VEHICLE BECAUSE HE HAD MECHANICALLY MODIFIED THE STARTER BUT STATES THAT ALL HIS DOORS ARE UNLOCKED AND HIS NEUMANN IS OPEN. ASKED HOW HE KNOWS THIS HE STATES HIS ROOMMATE TOLD HIM THIS THAT THEY ARE ON THEIR WAY UP AND WILL MOVE THE VEHICLE IF HE CAN GET THE KEYS. EXPLAINED THAT THIS NURSE WILL CALL SECURITY FOR HIM SO THEY CAN GIVE HIM THE KEYS. THEN PT'S ROOMMATE CAME IN ROOM WITH A LOUD VOICE EXCLAIMING TO PATIENT THE KIDS ARE NOT PERMITTED TO COME TO HIM ROOM AND THAT THEY ARE NOT SUPPOSE TO BE HERE DUE TO VISITING RESTRICTIONS. THIS NURSE ATTEMPTED TO EXPLAIN THAT THERE IS A VISITOR RESTRICTION AT THIS TIME. PT VERBALIZED WELL JUST GET MY STUFF AND I'LL LEAVE VISITOR TOLD PATIENT HE IS NOT LEAVING. VISITOR LEFT PERSONAL BELONGINGS AND STARTED COMPLAINING ABOUT LOCATION OF PATIENT'S VEHICLE HER VEHICLE AND THAT THE DOORS WERE UNLOCKED. VERBALIZED IF ANYTHING IS STOLEN I KNOW WHO TO ALVARO THIS NURSE ATTEMPTED TO INFORM VISITOR THAT SECURITY IS BEING CONTACTED TO BRING THE KEYS TO THE VEHICLE FOR HER. VISITOR STATES SHE DOES NOT HAVE TIME FOR THIS AND SHE WOULD BE BACK TOMORROW. VISITOR LEFT. PT AGREEABLE TO IV RESTART. IV STARTED AND IVF RESUMED. THIS NURSE EXPLAINED VISITOR RESTRICTION REASONS TO PATIENT. PT VERBALIZED UNDERSTANDING AND PT THEN APOLOGIZED FOR HIS STUBBORNNESS. PT INFORMED SECURITY WOULD BE UP TO SEE HIM ABOUT THE KEYS. PT DENIES ALL FURTHER NEEDS. CALL LIGHT WITHIN REACH. PRIMARY RN INFORMED OF ABOVE. TALKED W/ TAMMY IN SECURITY, AWARE MARYELLEN WOULD BE UP TO TALK W/ PATIENT ABOUT THE VEHICLE.
[2017-06-06 17:21] LABS: Bedside Glucose 171 mg/dL (70-110)
[2017-06-06 20:42] LABS: Potassium 4.4 mmol/L (3.5-5.1)
[2017-06-06 23:06] LABS: Bedside Glucose 97 mg/dL (70-110)
[2017-06-06 23:37] LABS: Vancomycin, Trough Level 31.9 ug/mL (5.0-15.0)
[2017-06-07 02:09] VITALS: BP 151/66; PULSE 67; RESP 16; TEMP 37.1; O2SAT 94
[2017-06-07] MEDS: Magnesium Hydroxide 30 ML UDC PO (04:01)
[2017-06-07] MEDS: Piperacil/Tazobactam 3.375 GM/50 ML ML IV ×3 (05:18→21:34)
[2017-06-07 06:46] LABS: Bedside Glucose 250 mg/dL (70-110)
[2017-06-07 07:06] LABS: Anion Gap 8 (5-15); BUN 28 mg/dL (7-18); Calcium,Total 8.2 mg/dL (8.5-10.1); Chloride 106 mmol/L (98-107); Creatinine, Serum 1.47 mg/dL (0.70-1.30); EST Glomerular Filtration Rate 52 mL/min (>60); Est Glom Filt Rate - Afr Amer 62 mL/min (>60); Estimated Creatinine Clearance 65.66 ml/min; Glucose 228 mg/dL (74-106); Potassium 4.7 mmol/L (3.5-5.1); Sodium Level 137 mmol/L (136-145)
[2017-06-07 08:10] VITALS: BP 142/85; PULSE 69; RESP 18; TEMP 37.1; O2SAT 96
[2017-06-07] MEDS: Ascorbic Acid 500 MG Tablet 250 MG PO ×2 (08:33→21:35)
[2017-06-07] MEDS: Heparin Injection 5,000 UNITS/ML Syringe 5000 UNITS SC ×2 (08:34→21:35)
[2017-06-07] MEDS: Aspirin 325 MG Tablet PO (08:34)
[2017-06-07 08:39] VITALS: BP 142/85; PULSE 69
[2017-06-07] MEDS: Metoprolol(XL)Succ 50 MG Tablet PO (08:39)
--- NOTE | 2017-06-07 08:42 | PN_ITS ---
Patient Problems: Active and Suspected Problems Obesity (Acute) Lower extremity edema (Acute) Type 2 diabetes mellitus with diabetic polyneuropathy (Acute) Ulcer of right lower extremity with fat layer exposed (Acute) Ulcer of left lower extremity with fat layer exposed (Acute) Subjective: Chief complaint: Follow-up after admission for questionable right leg cellulitis and ulcers DVT of the right gastrocnemius vein. Patient seen and examined. No acute events overnight. He has no more right leg. He has been afebrile, no other complaints. Vital signs are stable. - Physical Exam General: Alert, Oriented x3, Cooperative, No apparent distress HEENT: Atraumatic, PERRLA, EOMI Oral: Moist Mucosa, No Gingival or Mucosal Lesions/ Ulcerations Neck: Supple, No JVD, Negative Carotid Bruits, Trachea Midline, Thyroid Normal Size and Texture Lungs: Clear to auscultation, No rhonchi, No wheeze, No rales, Diminished Cardiovascular: Regular rate, Regular Rhythm, Normal S1, Normal S2, PMI Normal Abdomen: Bowel Sounds Present, Soft, Non Tender, Non-Distended, No Hepato- splenomegaly, Obese Extremities: No clubbing, No cyanosis, Edema - Bilateral edema, stasis dermatitis. Bilateral chronic ulcers. Skin: No rashes, Ulcer/ Wound Lymphatic: No Cervical, Supraclavicular, or Inguinal Adenopathy Neurological: Cranial nerves II-XII grossly intact, Neuro grossly intact Psych/Mental Status: Normal Affect, Appropriate, Alert and oriented to time, place, person, mood and affect Vital Signs Temp Pulse Resp BP Pulse Ox 98.8 F 69 18 142/85 H 96 06/07/17 08:10 06/07/17 08:10 06/07/17 08:10 06/07/17 08:10 06/07/17 08:10 Oxygen Delivery Method Room Air Weight: 418 lb 14.052 oz Body Mass Index (BMI) 49.7 Intake and Output for Last 24 Hours 06/05/17 06/06/17 06/07/17 23:59 23:59 23:59 Intake Total 4874 / 4874 4259 / 4259 739 / 739 Output Total 2500 / 2500 4850 / 4850 550 / 550 Balance 2374 / 2374 -591 / -591 189 / 189 Microbiology Past 72 Hours 06/05/17 18:15 Gram Stain - Final Wound - Aerobic & Anaerobic Swabs Wound Culture - Preliminary Gram negative vidal Staphylococcus aureus 06/05/17 11:00 Respiratory Panel (PCR) - Final Mucosa - Nose Rhinovirus Laboratory Tests Past 24 Hrs 06/06/17 06/06/17 06/07/17 20:20 23:05 05:20 Sodium 137 Potassium 4.4 4.7 Chloride 106 Carbon Dioxide 23.0 Anion Gap 8 BUN 28 H Creatinine 1.47 H Estim Creat Clear Calc 65.66 Est GFR (MDRD) Af Amer 62 Est GFR (MDRD) Non-Af 52 L BUN/Creatinine Ratio 19.0 Glucose 228 H Calcium 8.2 L Vancomycin Trough 31.9 H POC Glucose 06/07/17 06/06/17 06/06/17 06:39 22:44 17:09 POC Glucose 250 H 97 171 H 06/06/17 13:08 POC Glucose 196 H Medical Necessity - Tobacco Use Smoking Status: Never smoker Assessment/Plan Active and Suspected Problems Obesity (Acute) Lower extremity edema (Acute) Type 2 diabetes mellitus with diabetic polyneuropathy (Acute) Ulcer of right lower extremity with fat layer exposed (Acute) Ulcer of left lower extremity with fat layer exposed (Acute) This is a 62 years old male patient presented to the emergency room because of increasing redness of the right lower extremity after he underwent bilateral subcutaneous excision and debridement of right and diabetic ulcers that was done on June 03, 2017 and he was admitted because of questionable right lower extremity cellulitis in context of chronic nonhealing ulcers of the right leg. #1 questionable right lower extremity cellulitis: Remained on IV vancomycin and Zosyn. His vital signs are stable, afebrile, no leukocytosis. He had a history of chronic bilateral delayed healing leg ulcers as well as new right leg ulcers, underwent subcutaneous excisional debridement one day before admission by podiatry medicine. Lactic acid was normal. Wound culture revealed staph aureus, gram-negative rods, final is pending. Blood culture are pending. He was seen by podiatry medicine yesterday, recommended to continue IV antibiotics. Plan: Continue IV antibiotics, awaiting final wound culture report. #2 acute kidney injury on top of stage III chronic kidney disease/hyperkalemia: He is on IV fluids, serum creatinine came down to 1.47 and potassium normalized. His baseline creatinine has been around 1.2-1.4 mg/dL. #3 acute DVT of the right extremities vein: No indication for treatment, this is isolated DVT distal to the popliteal vein. Recommendation is to treat, not treat with monitoring. He is on DVT prophylaxis. #4 chronic bilateral lower extremity diabetic nonhealing ulcers/wounds/history of osteomyelitis: With multiple admissions to the hospital follow-up with wound care center. Plan as above. #5 type 2 diabetes mellitus: Blood sugar has been in the range of 200s, continue ADA diet, Accu-Cheks, insulin 7 scale, continue Levemir insulin nightly. #6 hypertension: Blood pressure stable, continue metoprolol, keep holding lisinopril. #7 chronic anemia: Secondary to anemia of chronic disease. Baseline hemoglobin has been around 11-12 g/dL, admission hemoglobin is 12.5 g/dL, yesterday's hemoglobin is 11.2 g/dL, stable at baseline. #8 DVT prophylaxis: Subcu heparin. This note was generated with [employer] dictation software. It may contain incorrect words, spelling, and punctuation that were not noted in checking the note before signing. Code Visit Inpatient E&M: 48943 Subs Hosp L2
[2017-06-07 09:11] LABS: Bedside Glucose 229 mg/dL (70-110)
[2017-06-07] MEDS: 0.9% Normal Saline 1,000 ML 75 ML IV ×2 (10:08→23:45)
[2017-06-07 10:42] LABS: Vancomycin, Trough Level 32.6 ug/mL (5.0-15.0)
--- NOTE | 2017-06-07 12:14 | PN_ITS ---
Patient Problems: Active and Suspected Problems Obesity (Acute) Lower extremity edema (Acute) Type 2 diabetes mellitus with diabetic polyneuropathy (Acute) Ulcer of right lower extremity with fat layer exposed (Acute) Ulcer of left lower extremity with fat layer exposed (Acute) Subjective: 62 year old diabetic male was seen again bedside today for a dressing change to bilateral lower extremities. Patient said he has no issues yesterday evening or so far today. He continues to feel like he is improving and the pain he had in his lower leg on admission continues to be gone. He currently denies any feelings of nausea, vomiting, fever, or chills. - Physical Exam General: Alert, Oriented x3, Cooperative, No apparent distress Extremities: Capillary Refill Less than 3 Seconds, Diminished Peripheral Pulses - DP and PT pulses non palpable bilateal due to aforementioned lower extremity edema, Edema - bilateral lower extremity edema Skin: Ulcer/ Wound - All of the aforementioned ulcers described in detail in the last two days notes remain today. There has been a slight improvement to the base of all of the ulcer sites. No worsening of any of the ulcer sites noted. Some slight serous drainage noted tot he dressing on the right, but no strikethrough. There is no purlulence and no malodor. Continues to be no probing , tracking, or undermining. The surrounding erythema noted to the right lower extremity continues to decrease in intensity and look better each day. There is no crepitus of fluctuance appreacited to either lower extremity. Musculoskeletal: No Tenderness to Palpation of Joints or Extremities, - - No Tenderness to Palpation of Joints or Extremities, - - Compartments of lower extremity are soft. 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 Neurological: - - epicritic sensation grossly absent to bilateral lower extermities Psych/Mental Status: Normal Affect, Appropriate Vital Signs Temp Pulse Resp BP Pulse Ox 98.8 F 69 18 142/85 H 96 06/07/17 08:10 06/07/17 08:39 06/07/17 08:10 06/07/17 08:39 06/07/17 08:10 Oxygen Delivery Method Room Air Weight: 190 kg Body Mass Index (BMI) 49.7 Intake and Output for Last 24 Hours 06/05/17 06/06/17 06/07/17 23:59 23:59 23:59 Intake Total 4874 / 4874 4259 / 4259 739 / 739 Output Total 2500 / 2500 4850 / 4850 550 / 550 Balance 2374 / 2374 -591 / -591 189 / 189 Microbiology Past 72 Hours 06/05/17 18:15 Gram Stain - Final Wound - Aerobic & Anaerobic Swabs Wound Culture - Preliminary Enterobacter cloacae complex Staphylococcus aureus 06/05/17 11:00 Respiratory Panel (PCR) - Final Mucosa - Nose Rhinovirus Laboratory Tests Past 24 Hrs 06/06/17 06/06/17 06/07/17 20:20 23:05 05:20 Sodium 137 Potassium 4.4 4.7 Chloride 106 Carbon Dioxide 23.0 Anion Gap 8 BUN 28 H Creatinine 1.47 H Estim Creat Clear Calc 65.66 Est GFR (MDRD) Af Amer 62 Est GFR (MDRD) Non-Af 52 L BUN/Creatinine Ratio 19.0 Glucose 228 H Calcium 8.2 L Vancomycin Trough 31.9 H 06/07/17 10:06 Sodium Potassium Chloride Carbon Dioxide Anion Gap BUN Creatinine Estim Creat Clear Calc Est GFR (MDRD) Af Amer Est GFR (MDRD) Non-Af BUN/Creatinine Ratio Glucose Calcium Vancomycin Trough 32.6 H POC Glucose 06/07/17 06/07/17 06/06/17 08:25 06:39 22:44 POC Glucose 229 H 250 H 97 06/06/17 06/06/17 17:09 13:08 POC Glucose 171 H 196 H Medical Necessity - Tobacco Use Smoking Status: Never smoker Assessment/Plan Active and Suspected Problems Obesity (Acute) Lower extremity edema (Acute) Type 2 diabetes mellitus with diabetic polyneuropathy (Acute) Ulcer of right lower extremity with fat layer exposed (Acute) Ulcer of left lower extremity with fat layer exposed (Acute) Ulcers of bilateral lower extremities Blood clot left lower leg DMII Lower extremity edema Patient was again examined and evaluated bedside today. Patient has long history of non compliance. He was seen in wound healing center four days ago by Dr. Hernández who performed bilateral debridements and applied regranex to the right heel and left TMA site and applied fibricol to the remaining ulcer sites. She felt some of his recently opened ulcers have been caused by dressings applied too tightly by home health. Patient is currently being treated for left DVT in gastroc vein with heparin. Patient is also being treated with vanc and zosyn. Deep wound cultures are currently showing growth of staph aureus and enterobacter cloacae complex. Tib-fib xray series was taken yesterday and showed degenerative changes and soft tissue swelling. 3 view foot x ray taken yesterday was reviewed and the report was read as rounded soft tissue ulceration with no definitive evidence of underlying bony erosion. Degenerative changes status post resection of hallux at the 1st MPJ. No soft tissue emphysema noted. Blood cultures show no growth after 48 hours. Patient remains afebrile. Ulcer today were cleansed and carefully dressed with adaptic to the base of all ulcers, followed by 4x4's, adaptic, and kerlix. Dressing can be reinforced if necessary. No significant compression applied. Patient to keep pressue off of ulcer sites. Podiatry will continue to monitor this patient while in house. Upon discharge, patient can resume seeing Dr. Hernández at the wound healing center as scheduled. Please contact with any questions or concerns.
[2017-06-07 12:50] LABS: Bedside Glucose 174 mg/dL (70-110)
[2017-06-07 14:56] VITALS: BP 137/62; PULSE 72; RESP 18; TEMP 36.8; O2SAT 95
[2017-06-07 17:30] LABS: Bedside Glucose 73 mg/dL (70-110)
--- NOTE | 2017-06-07 20:41 | PCM.RX.CS ---
Consult Pharmacy has been consulted to manage selected antiobiotic: Vancomycin Type of Consult: Follow-up Suspected Infection: Skin/Soft tissue Prior Doses of Antibiotics Received/Current Regimen: Medications Vancomycin HCl 2,000 mg/ (Sodium Chloride) 540 mls @ 260 mls/hr IV Q24H [facility] Medications Discontinued Medications Vancomycin HCl 2,000 mg/ (Dextrose) 540 mls @ 260 mls/hr IV Q12H [facility] Last Admin: 06/07/17 11:14 Dose: 260 mls/hr Labs: Sodium 137 mmol/L (136-145) 06/07/17 05:20 Potassium 4.7 mmol/L (3.5-5.1) 06/07/17 05:20 Chloride 106 mmol/L (98-107) 06/07/17 05:20 Carbon Dioxide 23.0 mmol/L (21.0-32.0) 06/07/17 05:20 Anion Gap 8 (5-15) 06/07/17 05:20 BUN 28 mg/dL (7-18) H 06/07/17 05:20 Creatinine 1.47 mg/dL (0.70-1.30) H 06/07/17 05:20 Est GFR (MDRD) Af Amer 62 mL/min (>60) 06/07/17 05:20 Est GFR (MDRD) Non-Af 52 mL/min (>60) L 06/07/17 05:20 BUN/Creatinine Ratio 19.0 RATIO (10-20) 06/07/17 05:20 Glucose 228 mg/dL (74-106) H 06/07/17 05:20 Vancomycin Trough 32.6 ug/mL (5.0-15.0) H 06/07/17 10:06 Microbiology: Microbiology 06/05/17 18:15 Wound - Aerobic & Anaerobic Swabs Gram Stain - Final 06/05/17 18:15 Wound - Aerobic & Anaerobic Swabs Wound Culture - Preliminary Enterobacter cloacae complex Staphylococcus aureus 06/05/17 11:00 Mucosa - Nose Respiratory Panel (PCR) - Final Rhinovirus Goal Trough: 10-15 mcg/mL Pharmacy Plan for Drug Dosing: Pharmacy Service will continue to monitor and adjust dosing as required.
--- NOTE | 2017-06-07 20:44 | PHA.PHARE_ITS ---
Consult Pharmacy has been consulted to manage selected antiobiotic: Vancomycin Type of Consult: Follow-up Suspected Infection: Skin/Soft tissue Prior Doses of Antibiotics Received/Current Regimen: Medications Vancomycin HCl 2,000 mg/ (Sodium Chloride) 540 mls @ 260 mls/hr IV Q24H [facility] Medications Discontinued Medications Vancomycin HCl 2,000 mg/ (Dextrose) 540 mls @ 260 mls/hr IV Q12H [facility] Last Admin: 06/07/17 11:14 Dose: 260 mls/hr Labs: Sodium 137 mmol/L (136-145) 06/07/17 05:20 Potassium 4.7 mmol/L (3.5-5.1) 06/07/17 05:20 Chloride 106 mmol/L (98-107) 06/07/17 05:20 Carbon Dioxide 23.0 mmol/L (21.0-32.0) 06/07/17 05:20 Anion Gap 8 (5-15) 06/07/17 05:20 BUN 28 mg/dL (7-18) H 06/07/17 05:20 Creatinine 1.47 mg/dL (0.70-1.30) H 06/07/17 05:20 Est GFR (MDRD) Af Amer 62 mL/min (>60) 06/07/17 05:20 Est GFR (MDRD) Non-Af 52 mL/min (>60) L 06/07/17 05:20 BUN/Creatinine Ratio 19.0 RATIO (10-20) 06/07/17 05:20 Glucose 228 mg/dL (74-106) H 06/07/17 05:20 Vancomycin Trough 32.6 ug/mL (5.0-15.0) H 06/07/17 10:06 Microbiology: Microbiology 06/05/17 18:15 Wound - Aerobic & Anaerobic Swabs Gram Stain - Final 06/05/17 18:15 Wound - Aerobic & Anaerobic Swabs Wound Culture - Preliminary Enterobacter cloacae complex Staphylococcus aureus 06/05/17 11:00 Mucosa - Nose Respiratory Panel (PCR) - Final Rhinovirus Goal Trough: 10-15 mcg/mL Pharmacy Plan for Drug Dosing: Pharmacy Service will continue to monitor and adjust dosing as required.
[2017-06-07 21:30] VITALS: BP 175/77; PULSE 75; RESP 18; TEMP 36.8; O2SAT 97
[2017-06-07 22:35] LABS: Bedside Glucose 147 mg/dL (70-110)
[2017-06-08 02:08] VITALS: RESP 18
[2017-06-08 03:30] VITALS: BP 138/72; PULSE 68; RESP 18; TEMP 36.8; O2SAT 94
[2017-06-08] MEDS: Piperacil/Tazobactam 3.375 GM/50 ML ML IV (05:24)
[2017-06-08 07:45] LABS: Bedside Glucose 198 mg/dL (70-110)
--- NOTE | 2017-06-08 08:28 | PN_ITS ---
Subjective: Chief complaint: Follow-up after admission for polymicrobial right leg infected ulcers/cellulitis and ulcers DVT of the right gastrocnemius vein. Patient seen and examined. No acute events overnight. He denies any complaints. No more right leg pain. Vital signs are stable, afebrile. - Physical Exam General: Alert, Oriented x3, Cooperative, No apparent distress HEENT: Atraumatic, PERRLA, EOMI Oral: Moist Mucosa, No Gingival or Mucosal Lesions/ Ulcerations Neck: Supple, No JVD, Negative Carotid Bruits, Trachea Midline, Thyroid Normal Size and Texture Lungs: Clear to auscultation, No rhonchi, No wheeze, No rales, Diminished Cardiovascular: Regular rate, Regular Rhythm, Normal S1, Normal S2, PMI Normal Abdomen: Bowel Sounds Present, Soft, Non Tender, Non-Distended, No Hepato- splenomegaly, Obese Extremities: No clubbing, No cyanosis, Edema - Edema, stasis dermatitis, chronic ulcers. Skin: No rashes, Ulcer/ Wound Musculoskeletal: No Tenderness to Palpation of Joints or Extremities Lymphatic: No Cervical, Supraclavicular, or Inguinal Adenopathy Neurological: Cranial nerves II-XII grossly intact, Neuro grossly intact Psych/Mental Status: Normal Affect, Appropriate Vital Signs Temp Pulse Resp BP Pulse Ox 98.2 F 68 18 138/72 H 94 06/08/17 03:30 06/08/17 03:30 06/08/17 03:30 06/08/17 03:30 06/08/17 03:30 Oxygen Delivery Method Room Air Weight: 418 lb 14.052 oz Body Mass Index (BMI) 49.7 Intake and Output for Last 24 Hours 06/06/17 06/07/17 06/08/17 23:59 23:59 23:59 Intake Total 4259 / 4259 2999 / 2999 1020 / 1020 Output Total 4850 / 4850 3225 / 3225 550 / 550 Balance -591 / -591 -226 / -226 470 / 470 Microbiology Past 72 Hours 06/05/17 18:15 Gram Stain - Final Wound - Aerobic & Anaerobic Swabs Wound Culture - Preliminary Enterobacter cloacae complex Staphylococcus aureus 06/05/17 11:00 Respiratory Panel (PCR) - Final Mucosa - Nose Rhinovirus Laboratory Tests Past 24 Hrs 06/07/17 10:06 Vancomycin Trough 32.6 H POC Glucose 06/08/17 06/07/17 06/07/17 07:41 21:33 16:57 POC Glucose 198 H 147 H 73 06/07/17 06/07/17 11:10 08:25 POC Glucose 174 H 229 H Microbiology 06/05/17 18:15 Wound - Aerobic & Anaerobic Swabs Gram Stain - Final 06/05/17 18:15 Wound - Aerobic & Anaerobic Swabs Wound Culture - Preliminary Enterobacter cloacae complex Staphylococcus aureus 06/04/17 16:00 Blood Culture (Wb) - Anticubital Right Blood Culture - Preliminary No growth in 48 hours. 06/04/17 15:45 Blood Culture (Wb) - Anticubital Left Blood Culture - Preliminary No growth in 48 hours. 06/05/17 11:00 Mucosa - Nose Respiratory Panel (PCR) - Final Rhinovirus Medical Necessity - Tobacco Use Smoking Status: Never smoker Assessment/Plan This is a 62 years old male patient presented to the emergency room because of increasing redness of the right lower extremity after he underwent bilateral subcutaneous excision and debridement of right and diabetic ulcers that was done on June 03, 2017 and he was admitted because of diabetic right lower extremity cellulitis/infected ulcers in context of chronic nonhealing ulcers of the right leg. #1 Acute polymicrobial diabetic right lower extremity infected ulcer/cellulitis : Remained on IV vancomycin and Zosyn. His vital signs are stable, afebrile, no leukocytosis. Blood culture showed no growth in 48 hours. Wound culture revealed staph aureus and Enterobacter cloacae, awaiting final results. He had a history of chronic bilateral delayed healing leg ulcers as well as new right leg ulcers, underwent subcutaneous excisional debridement one day before admission by podiatry medicine. Lactic acid was normal. Podiatry medicine on the case. Plan: We will discuss with podiatry medicine, awaiting final culture report, possible DC home later today. #2 acute kidney injury on top of stage III chronic kidney disease/hyperkalemia: He is on IV fluids, serum creatinine came down to 1.47 and potassium normalized. His baseline creatinine has been around 1.2-1.4 mg/dL. #3 acute DVT of the right extremities vein: No indication for treatment, this is isolated DVT distal to the popliteal vein. Recommendation is to treat, not treat with monitoring. He is on DVT prophylaxis. #4 chronic bilateral lower extremity diabetic nonhealing ulcers/wounds/history of osteomyelitis: With multiple admissions to the hospital follow-up with wound care center. Plan as above. #5 type 2 diabetes mellitus: Blood sugar has been stable, continue ADA diet, Accu-Cheks, insulin 7 scale, continue Levemir insulin nightly. #6 hypertension: Blood pressure stable, continue metoprolol, keep holding lisinopril. #7 chronic anemia: Secondary to anemia of chronic disease. Baseline hemoglobin has been around 11-12 g/dL, admission hemoglobin is 12.5 g/dL, most recent hemoglobin is 11.2 g/dL, stable at baseline. #8 DVT prophylaxis: Subcu heparin. This note was generated with [employer] dictation software. It may contain incorrect words, spelling, and punctuation that were not noted in checking the note before signing.
[2017-06-08 08:55] VITALS: BP 164/55; PULSE 71; RESP 18; TEMP 36.7; O2SAT 96
[2017-06-08 09:00] VITALS: BP 164/55; PULSE 71
[2017-06-08] MEDS: Aspirin 325 MG Tablet PO (09:00)
[2017-06-08] MEDS: Metoprolol(XL)Succ 50 MG Tablet PO (09:00)
[2017-06-08] MEDS: Heparin Injection 5,000 UNITS/ML Syringe 5000 UNITS SC (09:00)
[2017-06-08] MEDS: Ascorbic Acid 500 MG Tablet 250 MG PO (09:00)
[2017-06-08 11:26] LABS: Bedside Glucose 175 mg/dL (70-110)
[2017-06-08 11:32] LABS: Vancomycin, Random Level 22.1 ug/mL (0.0-15.0)
--- NOTE | 2017-06-08 11:47 | PHA.PHARE_ITS ---
Consult Pharmacy has been consulted to manage selected antiobiotic: Vancomycin Type of Consult: Follow-up Suspected Infection: Skin/Soft tissue Prior Doses of Antibiotics Received/Current Regimen: VANCO 2000MG IV (06/07/17 @1135) Labs: Sodium 137 mmol/L (136-145) 06/07/17 05:20 Potassium 4.7 mmol/L (3.5-5.1) 06/07/17 05:20 Chloride 106 mmol/L (98-107) 06/07/17 05:20 Carbon Dioxide 23.0 mmol/L (21.0-32.0) 06/07/17 05:20 Anion Gap 8 (5-15) 06/07/17 05:20 BUN 28 mg/dL (7-18) H 06/07/17 05:20 Creatinine 1.47 mg/dL (0.70-1.30) H 06/07/17 05:20 Est GFR (MDRD) Af Amer 62 mL/min (>60) 06/07/17 05:20 Est GFR (MDRD) Non-Af 52 mL/min (>60) L 06/07/17 05:20 BUN/Creatinine Ratio 19.0 RATIO (10-20) 06/07/17 05:20 Glucose 228 mg/dL (74-106) H 06/07/17 05:20 Vancomycin Trough 32.6 ug/mL (5.0-15.0) H 06/07/17 10:06 Random Vancomycin 22.1 ug/mL (0.0-15.0) H 06/08/17 10:35 Microbiology: Microbiology 06/05/17 18:15 Wound - Aerobic & Anaerobic Swabs Gram Stain - Final 06/05/17 18:15 Wound - Aerobic & Anaerobic Swabs Wound Culture - Final Enterobacter cloacae complex Staphylococcus aureus 06/05/17 11:00 Mucosa - Nose Respiratory Panel (PCR) - Final Rhinovirus Weight used for dosin kg Goal Trough: 10-15 mcg/mL Pharmacy Plan for Drug Dosing: Pharmacy Service will continue to monitor and adjust dosing as required. Doses were held after elevated trough. Got a random trough 06/08/17 @1035 (~ 23hrs from last dose given), which resulted in a value of 22.1. Trough remains elevated. Scheduled for the patient to get 2000mg IV Q24hrs to start 36hrs from last dose given, in order for the patient to clear more of the vancomycin. If patient still admitted for the next few days, will schedule another trough to evaluate new dosing scheme. PLAN/RECOMMENDATIONS 1. Vancomycin 2000mg IV to start 06/08/17 (36hrs from last dose) 2. No trough scheduled at this time- will schedule for 06/11/17 if patient is still admitted on 06/10 3. Pharmacy will continue to monitor renal function and trough values, will make changes as appropriate
[2017-06-08] MEDS: 0.9% Normal Saline 1,000 ML 75 ML IV (12:40)
--- NOTE | 2017-06-08 13:21 | DCINST_ITS ---
You will use the following diet at home:: Calorie/Carbohydrate Controlled ( specify 1200, 1400, etc) - 1800 [place], Cardiac Your food should be the consistency of: Regular Discharge Activity: Return to Normal Activity Weight Bearing Status: Weight bearing as tolerated Keep extremity elevated above heart level: Right Leg Call your doctor if you observe: Fever of 101 or Higher, Shortness of breath, Dizziness, Fainting spells, Chest pain, Increased palpitations (irregular heartbeat), Uncontrolled pain Additional Instructions: Take antibiotics for 10 days. Follow up with Dr. neff this coming Thursday at the wound care center. Allergies/Adverse Reactions: Allergies ciprofloxacin [From Cipro] Allergy (Verified 06/04/17 15:21) Rash he has tolerated oral cipro in the past levofloxacin [From Levaquin] Allergy (Verified 06/04/17 15:21) Hives Penicillins Allergy (Verified 06/04/17 15:21) Hives silver Allergy (Verified 06/04/17 15:21) Rash Skin márquez and itches, rash Medications to take at Discharge Polyethylene Glycol 3350 [Miralax] 17 gm PO DAILY PRN 07/30/16 Ascorbic Acid [Vitamin C] 250 mg PO BID 06/04/17 Aspirin 325 mg PO DAILY@0800 06/04/17 Furosemide 40 mg PO DAILY 06/04/17 Insulin NPH Human Isophane [Novolin N] 40 units SQ QHS 06/04/17 Insulin Regular, Human [Novolin R] 38 unit SQ TID 06/04/17 Lisinopril [Zestril] 10 mg PO DAILY 06/04/17 Metoprolol(XL)Succ [Toprol Xl (Beta Marshall)] 50 mg PO DAILY 06/04/17 Multivitamin [Multiple Vitamins] 1 each PO DAILY 06/04/17 Cefadroxil [Duricef] 1,000 mg PO BID #40 cap 06/08/17 Clindamycin [Cleocin] 450 mg PO 4X/DAY #120 cap 06/08/17 The following prescriptions were given: Cefadroxil [Duricef] 1,000 mg PO BID #40 cap Clindamycin [Cleocin] 450 mg PO 4X/DAY #120 cap Primary Care Physician: Ac Felix [Primary Care Provider] - Please follow up with your Primary Care Physician in: 2 weeks. Please Follow Up With: Gemini Neff DPM When: this [email or web address]
[2017-06-08] MEDS: Cefadroxil 500 MG CAPSULE 1000 MG PO (14:26)
[2017-06-08] MEDS: Clindamycin HCl 150 MG Capsule 450 MG PO (14:38)
--- NOTE | 2017-06-08 14:41 | PCM.DC.SUM ---
Discharge Date and Diagnosis Date of Admission: 06/04/17 Date of Discharge: 06/08/17 - Primary Discharge Diagnosis #1 Enterobacter Colace/MSSA acute right lower extremity diabetic infected ulcer/cellulitis. #2 acute kidney injury on top of stage III chronic kidney disease. #3 hyperkalemia. #4 acute DVT of the right gastrocnemius vein. - Secondary Discharge Diagnosis Chronic Problems Ulcer of left lower extremity with fat layer exposed (Chronic) Chronic ulcer of left foot with fat layer exposed (Chronic) Ulcer of right foot with fat layer exposed (Chronic) Physical deconditioning (Chronic) Ulcer of right lower extremity with fat layer exposed (Chronic) Ulcer of right lower extremity with fat layer exposed (Chronic) Chronic ulcer of left foot with fat layer exposed (Chronic) Dehiscence of amputation stump (Chronic) Type 2 diabetes mellitus with foot ulcer (Chronic) Type 2 diabetes mellitus with diabetic polyneuropathy (Chronic) Non-pressure chronic ulcer of right heel and midfoot with fat layer exposed (Chronic) Diabetic ulcer of foot with necrosis of muscle (Chronic) Malnutrition (Chronic) Obesity (Chronic) Lower extremity edema (Chronic) Ulcer of right foot with necrosis of muscle (Chronic) Diabetes mellitus with polyneuropathy (Chronic) Non-pressure chronic ulcer of right heel and midfoot with necrosis of muscle (Chronic) Diabetic foot ulcer (Chronic) Ulcer of right heel and midfoot with fat layer exposed (Chronic) Chronic ulcer of left foot with necrosis of muscle (Chronic) Diabetes mellitus with neuropathy (Chronic) Edema, lower extremity (Chronic) Hospital Course and Treatment Imaging Results: Clinical Impression(s) from Imaging Studies Tibia/Fibula X-Ray 06/04/17 17:38 IMPRESSION: Degenerative changes. Diffuse soft tissue swelling. Electronically Signed: Alicia Starr MD at 18:53 EDT Tel , Service support , Chest X-Ray 06/05/17 10:52 IMPRESSION: Questionable left lower lobe infiltrate. Central bronchovascular congestion Electronically Signed: Charles Rodriguez DO at 11:50 EDT Tel , Service support , Foot X-Ray 06/05/17 20:40 IMPRESSION: Rounded soft tissue ulceration. No definitive evidence of underlying bony erosion. Degenerative changes detailed above status post resection of the first digit at the metatarsophalangeal joint.. Electronically Signed: Francoise Toledo MD at 1:03 EDT Tel , Service support , Dr. Bryson, podiatry medicine. Operations: None Procedures: None, - Summary of Care Provided: This is a 62 years old male patient presented to the emergency room because of increasing redness of the right lower extremity after he underwent bilateral subcutaneous excision and debridement of right and diabetic ulcers that was done on June 03, 2017 and he was admitted because of diabetic right lower extremity cellulitis/infected ulcers in context of chronic nonhealing ulcers of the right leg. #1 Acute polymicrobial Enterobacter/MSSA diabetic right lower extremity infected ulcer/cellulitis: Treated with IV vancomycin and Zosyn. There was no evidence of sepsis or severe sepsis. His vital signs remained stable and he remained afebrile throughout admission. Blood culture showed no growth in 48 hours. Wound culture revealed MSSA and Enterobacter cloacae. Podiatry medicine consulted and recommended no indication for surgery at this time, cleaning and dressing was done daily. Patient discharged home with home health in a stable medical condition, discharged on Duricef and clindamycin for 10 days of treatment, I spoke with Dr. neff to see the patient for follow-up this coming Thursday at the wound care center. #2 acute kidney injury on top of stage III chronic kidney disease/hyperkalemia: Treated with IV fluids, serum creatinine came down to 1.47 and potassium normalized. #3 acute DVT of the right extremities vein: No indication for treatment, this is isolated DVT distal to the popliteal vein. Recommendation is to treat, not treat with monitoring. #5 type 2 diabetes mellitus: Blood sugar has been stable, continued on Novolin insulin as well as pre-meal NovoLog upon discharge. #6 hypertension: Blood pressure stable, continued on metoprolol and metoprolol. Patient discharged home with home health in a stable medical condition, discharged on Duricef and clindamycin for 10 days, plan to follow-up with wound care center this coming Thursday and to be seen by Dr. Neff, recommended follow-up with PCP in 2 weeks. This note was generated with [employer] dictation software. It may contain incorrect words, spelling, and punctuation that were not noted in checking the note before signing. Discharge Activity: Return to Normal Activity Weight Bearing Status: Weight bearing as tolerated Keep extremity elevated above heart level: Right Leg Call your doctor if you observe: Fever of 101 or Higher, Shortness of breath, Dizziness, Fainting spells, Chest pain, Increased palpitations (irregular heartbeat), Uncontrolled pain Home Medications: Medications to take at Discharge Polyethylene Glycol 3350 [Miralax] 17 gm PO DAILY PRN 07/30/16 Ascorbic Acid [Vitamin C] 250 mg PO BID 06/04/17 Aspirin 325 mg PO DAILY@0800 06/04/17 Furosemide 40 mg PO DAILY 06/04/17 Insulin NPH Human Isophane [Novolin N] 40 units SQ QHS 06/04/17 Insulin Regular, Human [Novolin R] 38 unit SQ TID 06/04/17 Lisinopril [Zestril] 10 mg PO DAILY 06/04/17 Metoprolol(XL)Succ [Toprol Xl (Beta Marshall)] 50 mg PO DAILY 06/04/17 Multivitamin [Multiple Vitamins] 1 each PO DAILY 06/04/17 Cefadroxil [Duricef] 1,000 mg PO BID #40 cap 06/08/17 Clindamycin [Cleocin] 450 mg PO 4X/DAY #120 cap 06/08/17 Following Prescrptions Were Given to Patient: Cefadroxil [Duricef] 1,000 mg PO BID #40 cap Clindamycin [Cleocin] 450 mg PO 4X/DAY #120 cap Primary Care Physician: Ac Felix [Primary Care Provider] - Please follow up with your Primary Care Physician in: 2 weeks. Please Follow Up With: Gemini Neff DPM When: this Disposition: Home with Home Health Minutes spent on discharge:: 33 Patient Condition:: Stable Medical Necessity - Tobacco Use Smoking Status: Never smoker Meaningful Use Info Meaningful Use Diagnoses (Choose all that apply): None applicable Code Visit Inpatient E&M: 87838 Disch Hosp
--- NOTE | 2017-06-08 14:44 | DS.PCM_ITS ---
Discharge Date and Diagnosis Date of Admission: 06/04/17 Date of Discharge: 06/08/17 - Primary Discharge Diagnosis #1 Enterobacter Colace/MSSA acute right lower extremity diabetic infected ulcer /cellulitis. #2 acute kidney injury on top of stage III chronic kidney disease. #3 hyperkalemia. #4 acute DVT of the right gastrocnemius vein. - Secondary Discharge Diagnosis Chronic Problems Ulcer of left lower extremity with fat layer exposed (Chronic) Chronic ulcer of left foot with fat layer exposed (Chronic) Ulcer of right foot with fat layer exposed (Chronic) Physical deconditioning (Chronic) Ulcer of right lower extremity with fat layer exposed (Chronic) Ulcer of right lower extremity with fat layer exposed (Chronic) Chronic ulcer of left foot with fat layer exposed (Chronic) Dehiscence of amputation stump (Chronic) Type 2 diabetes mellitus with foot ulcer (Chronic) Type 2 diabetes mellitus with diabetic polyneuropathy (Chronic) Non-pressure chronic ulcer of right heel and midfoot with fat layer exposed ( Chronic) Diabetic ulcer of foot with necrosis of muscle (Chronic) Malnutrition (Chronic) Obesity (Chronic) Lower extremity edema (Chronic) Ulcer of right foot with necrosis of muscle (Chronic) Diabetes mellitus with polyneuropathy (Chronic) Non-pressure chronic ulcer of right heel and midfoot with necrosis of muscle ( Chronic) Diabetic foot ulcer (Chronic) Ulcer of right heel and midfoot with fat layer exposed (Chronic) Chronic ulcer of left foot with necrosis of muscle (Chronic) Diabetes mellitus with neuropathy (Chronic) Edema, lower extremity (Chronic) Hospital Course and Treatment Imaging Results: Clinical Impression(s) from Imaging Studies Tibia/Fibula X-Ray 06/04/17 17:38 IMPRESSION: Degenerative changes. Diffuse soft tissue swelling. Electronically Signed: Alicia Starr MD at 18:53 EDT Tel , Service support , Chest X-Ray 06/05/17 10:52 IMPRESSION: Questionable left lower lobe infiltrate. Central bronchovascular congestion Electronically Signed: Charles Rodriguez DO at 11:50 EDT Tel , Service support , Foot X-Ray 06/05/17 20:40 IMPRESSION: Rounded soft tissue ulceration. No definitive evidence of underlying bony erosion. Degenerative changes detailed above status post resection of the first digit at the metatarsophalangeal joint.. Electronically Signed: Francoise Toledo MD at 1:03 EDT Tel , Service support , Dr. Bryson, podiatry medicine. Operations: None Procedures: None, - Summary of Care Provided: This is a 62 years old male patient presented to the emergency room because of increasing redness of the right lower extremity after he underwent bilateral subcutaneous excision and debridement of right and diabetic ulcers that was done on June 03, 2017 and he was admitted because of diabetic right lower extremity cellulitis/infected ulcers in context of chronic nonhealing ulcers of the right leg. #1 Acute polymicrobial Enterobacter/MSSA diabetic right lower extremity infected ulcer/cellulitis: Treated with IV vancomycin and Zosyn. There was no evidence of sepsis or severe sepsis. His vital signs remained stable and he remained afebrile throughout admission. Blood culture showed no growth in 48 hours. Wound culture revealed MSSA and Enterobacter cloacae. Podiatry medicine consulted and recommended no indication for surgery at this time, cleaning and dressing was done daily. Patient discharged home with home health in a stable medical condition, discharged on Duricef and clindamycin for 10 days of treatment, I spoke with Dr. neff to see the patient for follow-up this coming Thursday at the wound care center. #2 acute kidney injury on top of stage III chronic kidney disease/hyperkalemia: Treated with IV fluids, serum creatinine came down to 1.47 and potassium normalized. #3 acute DVT of the right extremities vein: No indication for treatment, this is isolated DVT distal to the popliteal vein. Recommendation is to treat, not treat with monitoring. #5 type 2 diabetes mellitus: Blood sugar has been stable, continued on Novolin insulin as well as pre-meal NovoLog upon discharge. #6 hypertension: Blood pressure stable, continued on metoprolol and metoprolol. Patient discharged home with home health in a stable medical condition, discharged on Duricef and clindamycin for 10 days, plan to follow-up with wound care center this coming Thursday and to be seen by Dr. Neff, recommended follow-up with PCP in 2 weeks. This note was generated with [employer] dictation software. It may contain incorrect words, spelling, and punctuation that were not noted in checking the note before signing. Discharge Activity: Return to Normal Activity Weight Bearing Status: Weight bearing as tolerated Keep extremity elevated above heart level: Right Leg Call your doctor if you observe: Fever of 101 or Higher, Shortness of breath, Dizziness, Fainting spells, Chest pain, Increased palpitations (irregular heartbeat), Uncontrolled pain Home Medications: Medications to take at Discharge Polyethylene Glycol 3350 [Miralax] 17 gm PO DAILY PRN 07/30/16 Ascorbic Acid [Vitamin C] 250 mg PO BID 06/04/17 Aspirin 325 mg PO DAILY@0800 06/04/17 Furosemide 40 mg PO DAILY 06/04/17 Insulin NPH Human Isophane [Novolin N] 40 units SQ QHS 06/04/17 Insulin Regular, Human [Novolin R] 38 unit SQ TID 06/04/17 Lisinopril [Zestril] 10 mg PO DAILY 06/04/17 Metoprolol(XL)Succ [Toprol Xl (Beta Marshall)] 50 mg PO DAILY 06/04/17 Multivitamin [Multiple Vitamins] 1 each PO DAILY 06/04/17 Cefadroxil [Duricef] 1,000 mg PO BID #40 cap 06/08/17 Clindamycin [Cleocin] 450 mg PO 4X/DAY #120 cap 06/08/17 Following Prescrptions Were Given to Patient: Cefadroxil [Duricef] 1,000 mg PO BID #40 cap Clindamycin [Cleocin] 450 mg PO 4X/DAY #120 cap Primary Care Physician: Ac Felix [Primary Care Provider] - Please follow up with your Primary Care Physician in: 2 weeks. Please Follow Up With: Gemini Neff DPM When: this Disposition: Home with Home Health Minutes spent on discharge:: 33 Patient Condition:: Stable Medical Necessity - Tobacco Use Smoking Status: Never smoker Meaningful Use Info Meaningful Use Diagnoses (Choose all that apply): None applicable Code Visit Inpatient E&M: 54331 Disch Hosp
--- NOTE | 2017-06-08 15:43 | CASEMGMT ---
Discharge instructions faxed to [facility] and called to update on patient discharging with resumption of care. JANA LOPEZ updated patient regarding C being notified of discharge.
[2017-06-08 15:56] VITALS: BP 154/49; PULSE 68; RESP 20; TEMP 36.8; O2SAT 96
[2017-06-08 16:15] VITALS: BP 154/49; PULSE 68; RESP 20; TEMP 36.8; O2SAT 96
== END 2017-06-08 16:14 | disposition home health service (06) | DRG 638 ==
LOC: ED 16:24 → MS3 18:13
PROVIDERS: Admitting Provider Internal Medicine; Emergency Provider Emergency Medicine; Family Provider Family Medicine; PCP Family Medicine; Visit Provider Hospitalist
DX: E11.622 Type 2 diabetes mellitus with other skin ulcer (principal); L03.115 Cellulitis of right lower limb; L97.812 Non-pressure chronic ulcer of other part of right lower leg with fat layer exposed; L97.412 Non-pressure chronic ulcer of right heel and midfoot with fat layer exposed; E11.22 Type 2 diabetes mellitus with diabetic chronic kidney disease; E11.42 Type 2 diabetes mellitus with diabetic polyneuropathy; E11.621 Type 2 diabetes mellitus with foot ulcer; N17.9 Acute kidney failure, unspecified; N18.3 Chronic kidney disease, stage 3 (moderate); Z68.42 Body mass index [BMI] 45.0-49.9, adult; L97.512 Non-pressure chronic ulcer of other part of right foot with fat layer exposed; E11.628 Type 2 diabetes mellitus with other skin complications; I82.4Z1 Acute embolism and thrombosis of unspecified deep veins of right distal lower extremity; E66.01 Morbid (severe) obesity due to excess calories; L98.492 Non-pressure chronic ulcer of skin of other sites with fat layer exposed; I12.9 Hypertensive chronic kidney disease with stage 1 through stage 4 chronic kidney disease, or unspecified chronic kidney disease; E87.5 Hyperkalemia; B95.61 Methicillin susceptible Staphylococcus aureus infection as the cause of diseases classified elsewhere; B96.89 Other specified bacterial agents as the cause of diseases classified elsewhere; T87.81 Dehiscence of amputation stump; Z89.411 Acquired absence of right great toe; Z89.432 Acquired absence of left foot; Z79.4 Long term (current) use of insulin; D63.8 Anemia in other chronic diseases classified elsewhere; R60.0 Localized edema; Z91.19 Patient's noncompliance with other medical treatment and regimen; Z71.3 Dietary counseling and surveillance; Z68.33 Body mass index [BMI] 33.0-33.9, adult
CPT/HCPCS: 11042; 11045; 36415; 71045; 73590; 73630; 80048; 80053; 80202; 82962; 83605; 84132; 85025; 87040; 87070; 87075; 87077; 87186; 87205; 87633; 93971; 97802; 99283; J7030; J7040; A4216

== ENCOUNTER 2017-06-10 08:45 | Outpatient (RCR) | payer MEDICARE, MEDICAID, SELFPAY ==
[2017-05-14 00:26] VITALS: BP 190/84; PULSE 75; RESP 20; TEMP 36.5
[2017-05-27 14:55] VITALS: BP 145/80; PULSE 75; RESP 20; TEMP 36.4
--- NOTE | 2017-05-27 17:24 | PN.PCM_ITS ---
(1) Ulcer of left lower extremity with fat layer exposed Status: Chronic Current Visit: Yes Code(s): L97.922 - Non-pressure chronic ulcer of unspecified part of left lower leg with fat layer exposed (2) Ulcer of right lower extremity with fat layer exposed Status: Chronic Current Visit: Yes Code(s): L97.912 - Non-pressure chronic ulcer of unspecified part of right lower leg with fat layer exposed (3) Type 2 diabetes mellitus with diabetic polyneuropathy Status: Chronic Current Visit: Yes Code(s): E11.42 - Type 2 diabetes mellitus with diabetic polyneuropathy (4) Malnutrition Status: Chronic Current Visit: Yes Code(s): E46 - Unspecified protein- calorie malnutrition (5) Obesity Status: Chronic Current Visit: Yes Code(s): E66.9 - Obesity, unspecified (6) Lower extremity edema Status: Chronic Current Visit: Yes Code(s): R60.0 - Localized edema (7) Diabetes mellitus with polyneuropathy Status: Chronic Current Visit: No Qualifiers: Diabetes mellitus type: type 2 Qualified Code(s): E11.42 - Type 2 diabetes mellitus with diabetic polyneuropathy Code(s): E11.42 - Type 2 diabetes mellitus with diabetic polyneuropathy (8) Osteomyelitis of foot Status: Resolved Current Visit: Yes Qualifiers: Laterality: right Code(s): M86.9 - Osteomyelitis, unspecified Type of Wound Date of Service: 05/29/17 Chief Complaint: Right heel ulcer with delayed healing. 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 right leg ulcers History of Wound: This 61 year old male was seen for right heel ulcer with chronic osteomyelitis and for left foot delayed healing wound. He denies pain. He denies fever, chill, nausea, vomiting. He is recovering from acute bronchitis and denies taking antibiotics at this time. His home health nurse was concerned about right heel redness and he started himself on some augmentin that he had at home from a couple of years ago. Progress of Wound: stable - Physical Exam Vital Signs Temp Pulse Resp BP 97.5 F L 75 20 H 145/80 H 05/27/17 14:55 05/27/17 14:55 05/27/17 14:55 05/27/17 14:55 General: Alert, Oriented x3, Cooperative Extremities: No cyanosis, Capillary Refill Less than 3 Seconds, No Calf Tenderness, Diminished Peripheral Pulses, Edema Skin: Ulcer/ Wound - no purulence, no erythema, no streaking, no infection, no eschar noted. no erythema to left heel noted. no exposed bone or tendon noted bilateral. the skin is atrophic bilateral Wound Measurements and Assessment WC - Nurse 1 - General Ulcer Measurement Start: 05/27/17 14:55 Freq: Status: Active Protocol: Activity Type Activity Date Activity User E-Sign Co-Sign Detail Recorded Client Recorded Date Recorded By Document 05/27/17 14:55 RB [id number] 05/27/17 15:22 RB 05/27/17 14:55 Wound Center Nurse 1 [Ulcer Assessment] 8-right cluster bernstein -Combined with other wound No -Current Size (cm) - Length 3 -Current Size (cm) - Width 2.7 -Current Size (cm) - Depth 0.1 -Total Square Cm 8.1 -Photo Taken No -Tunneling No -Undermining/Tunneling No -Circular Undermining No -Classification - Thickness Full Thickness without Exposed Support Structure -Exudate Amt Small (1-33%) -Exudate Type Serosanguineous -Wound Margin Distinct, Outline Attached -Granulation Amt Small (1-33%) -Granulation Quality [place] -Slough/Fibrin Yes -Necrosis Amt Large (67-100%) -Necrotic Tissue Type Adherent Slough -Structure Exposed N/A -Texture (Susy-wound Skin Appearance) Assessed -Moisture (Susy-wound Skin Appearance Dry/Scaly ) -Color (Susy-wound Skin Appearance) Assessed -Temperature (Susy-wound Skin No Abnormality Appearance) (Pt Warm) -Tenderness on Palpation (Susy-wound No Skin Appearance) -Ulcer Cleansing Wound Cleanser -Foul Odor after Cleansing No -Anesthetic Used 4% Lidocaine Solution #4 Left central TMA -Combined with other wound No -Current Size (cm) - Length 0.5 -Current Size (cm) - Width 0.3 -Current Size (cm) - Depth 0.3 -Total Square Cm 0.15 -Photo Taken No -Tunneling No -Undermining/Tunneling No -Circular Undermining No -Classification - Thickness Full Thickness without Exposed Support Structure -Exudate Amt Small (1-33%) -Exudate Type Serosanguineous -Wound Margin Distinct, Outline Attached -Granulation Amt Medium (34-66%) -Granulation Quality [place] -Slough/Fibrin Yes -Necrosis Amt Medium (34-66%) -Necrotic Tissue Type Adherent Slough -Structure Exposed N/A -Texture (Susy-wound Skin Appearance) Assessed -Moisture (Susy-wound Skin Appearance Assessed ) -Color (Susy-wound Skin Appearance) Assessed -Temperature (Susy-wound Skin No Abnormality Appearance) (Pt Warm) -Tenderness on Palpation (Susy-wound No Skin Appearance) -Ulcer Cleansing Rinsed/ Irrigated with Saline -Foul Odor after Cleansing No -Anesthetic Used 4% Lidocaine Solution #1 right medial heel -Combined with other wound No -Current Size (cm) - Length 4 -Current Size (cm) - Width 1.2 -Current Size (cm) - Depth 0.3 -Total Square Cm 4.8 -Tunneling No -Undermining/Tunneling No -Circular Undermining No -Classification - Eldridge Grading ( Grade 2 Diabetic Ulcer) -Exudate Amt Small (1-33%) -Exudate Type Serosanguineous -Wound Margin Distinct, Outline Attached -Granulation Amt Medium (34-66%) -Granulation Quality [place] -Slough/Fibrin Yes -Necrosis Amt Medium (34-66%) -Necrotic Tissue Type Adherent Slough -Structure Exposed N/A -Texture (Susy-wound Skin Appearance) Assessed -Moisture (Susy-wound Skin Appearance Maceration ) -Color (Susy-wound Skin Appearance) Assessed -Temperature (Susy-wound Skin No Abnormality Appearance) (Pt Warm) -Tenderness on Palpation (Susy-wound No Skin Appearance) -Ulcer Cleansing Rinsed/ Irrigated with Saline -Foul Odor after Cleansing No -Anesthetic Used 4% Lidocaine Solution [Edema Assessment] -Lower Limb Edema Present Yes -Right Calf (cm) 47.5 -Right Ankle (cm) 27.2 -Left Calf (cm) 46 -Left Ankle (cm) 27 WC - Nurse 2 - General Ulcer CM Notes Start: 05/27/17 14:55 Freq: Status: Active Protocol: Activity Type Activity Date Activity User E-Sign Co-Sign Detail Recorded Client Recorded Date Recorded By Document 05/27/17 15:35 NORRIS [id number] 05/27/17 15:55 NORRIS 05/27/17 15:35 Wound Center Nurse 2 [Procedure/Treatment] 8-right cluster bernstein -Time 15:36 -Correct Patient Yes -Correct Side, Site, Position Yes -Correct Procedure Yes -Procedure Performed Yes -Type of Procedure Debridement -Clinical Debridement Subcutaneous -Post Debridement Size (cm) - Length 3 -Post Debridement Size (cm) - Width 2.8 -Post Debridement Size (cm) - Depth 0.1 -Total Square Cm 8.4 -Wound/Ulcer Outcome Not Healed -Ulcer Cleansing Rinsed/ Irrigated with Saline -Foul Odor after Cleansing No -Bioengineered Tissue Yes -Type of bioengineered Tissue [id number] -Expiration Date 01/22/19 -Product Lot Number [id number] -Percent Used 100 -Saline Lot Number [id number] -Bleeding Controlled with Pressure -Treatment Response Procedure Tolerated Well #4 Left central TMA -Time 15:36 -Correct Patient Yes -Correct Side, Site, Position Yes -Correct Procedure Yes -Procedure Performed Yes -Type of Procedure Debridement -Clinical Debridement Subcutaneous -Post Debridement Size (cm) - Length 0.5 -Post Debridement Size (cm) - Width 0.4 -Post Debridement Size (cm) - Depth 0.3 -Total Square Cm 0.20 -Wound/Ulcer Outcome Not Healed -Ulcer Cleansing Rinsed/ Irrigated with Saline -Foul Odor after Cleansing No -Bioengineered Tissue Yes -Type of bioengineered Tissue [id number] -Expiration Date 01/22/19 -Product Lot Number [id number] -Percent Used 100 -Saline Lot Number [id number] -Bleeding Controlled with Pressure -Treatment Response Procedure Tolerated Well #1 right medial heel -Time 15:37 -Correct Patient Yes -Correct Side, Site, Position Yes -Correct Procedure Yes -Procedure Performed Yes -Type of Procedure Debridement -Clinical Debridement Subcutaneous -Post Debridement Size (cm) - Length 4 -Post Debridement Size (cm) - Width 1.3 -Post Debridement Size (cm) - Depth 0.3 -Total Square Cm 5.2 -Wound/Ulcer Outcome Not Healed -Ulcer Cleansing Rinsed/ Irrigated with Saline -Foul Odor after Cleansing No -Bioengineered Tissue Yes -Type of bioengineered Tissue [id number] -Expiration Date 01/22/19 -Product Lot Number [id number] -Percent Used 100 -Saline Lot Number [id number] -Bleeding Controlled with Pressure -Treatment Response Procedure Tolerated Well [See Physician Procedure note for Specifics] Pain Scale: 0-10 Numeric [Pain] -Is Patient Pain Free? Yes Musculoskeletal: No Tenderness to Palpation of Joints or Extremities, Muscle Wasting, Tenderness - wound manipulation is not painful Neurological: - - lack of epicritic sensation noted via light touch noted bilateral lower extremities Psych/Mental Status: Normal Affect, Appropriate Debridement Note Post-Debridement Measurements/Treatment WC - Nurse 2 - General Ulcer CM Notes Start: 05/27/17 14:55 Freq: Status: Active Protocol: Activity Type Activity Date Activity User E-Sign Co-Sign Detail Recorded Client Recorded Date Recorded By Document 05/27/17 15:35 NORRIS [id number] 05/27/17 15:55 NORRIS 05/27/17 15:35 Wound Center Nurse 2 8-right cluster bernstein -Time 15:36 -Correct Patient Yes -Correct Side, Site, Position Yes -Correct Procedure Yes -Procedure Performed Yes -Type of Procedure Debridement -Clinical Debridement Subcutaneous -Post Debridement Size (cm) - Length 3 -Post Debridement Size (cm) - Width 2.8 -Post Debridement Size (cm) - Depth 0.1 -Total Square Cm 8.4 -Wound/Ulcer Outcome Not Healed -Ulcer Cleansing Rinsed/ Irrigated with Saline -Foul Odor after Cleansing No -Bioengineered Tissue Yes -Type of bioengineered Tissue [id number] -Expiration Date 01/22/19 -Product Lot Number [id number] -Percent Used 100 -Saline Lot Number [id number] -Bleeding Controlled with Pressure -Treatment Response Procedure Tolerated Well #4 Left central TMA -Time 15:36 -Correct Patient Yes -Correct Side, Site, Position Yes -Correct Procedure Yes -Procedure Performed Yes -Type of Procedure Debridement -Clinical Debridement Subcutaneous -Post Debridement Size (cm) - Length 0.5 -Post Debridement Size (cm) - Width 0.4 -Post Debridement Size (cm) - Depth 0.3 -Total Square Cm 0.20 -Wound/Ulcer Outcome Not Healed -Ulcer Cleansing Rinsed/ Irrigated with Saline -Foul Odor after Cleansing No -Bioengineered Tissue Yes -Type of bioengineered Tissue [id number] -Expiration Date 01/22/19 -Product Lot Number [id number] -Percent Used 100 -Saline Lot Number [id number] -Bleeding Controlled with Pressure -Treatment Response Procedure Tolerated Well #1 right medial heel -Time 15:37 -Correct Patient Yes -Correct Side, Site, Position Yes -Correct Procedure Yes -Procedure Performed Yes -Type of Procedure Debridement -Clinical Debridement Subcutaneous -Post Debridement Size (cm) - Length 4 -Post Debridement Size (cm) - Width 1.3 -Post Debridement Size (cm) - Depth 0.3 -Total Square Cm 5.2 -Wound/Ulcer Outcome Not Healed -Ulcer Cleansing Rinsed/ Irrigated with Saline -Foul Odor after Cleansing No -Bioengineered Tissue Yes -Type of bioengineered Tissue [id number] -Expiration Date 01/22/19 -Product Lot Number [id number] -Percent Used 100 -Saline Lot Number [id number] -Bleeding Controlled with Pressure -Treatment Response Procedure Tolerated Well Pain Scale: 0-10 Numeric Is Patient Pain Free? Yes Wound debrided: heel Laterality: Right Wound Grade/Stage: grade 1 Type of Debridement: Excisional debridement Anesthesia Used: 4% Lidocaine Solution Depth: in the subcutaneous layer Percentage of wound debrided: 100 Instrument Used: #15 blade Tissue Removed: fibrous, devitalized subcutaneous, biofilm, slough Severity: Fat Layer Exposed Amount of bleeding with debridement: Mild Bleeding Controlled with: Pressure Patient tolerated procedure well - Additional Wound Wound debrided: leg Laterality: Right Wound Grade/Stage: grade 1 Type of Debridement: Excisional debridement Anesthesia Used: 4% Lidocaine Solution Depth: in the subcutaneous layer Percentage of wound debrided: 100 Instrument Used: #15 blade Tissue Removed: fibrous, devitalized subcutaneous, biofilm, slough Severity: Fat Layer Exposed Amount of bleeding with debridement: Mild Bleeding Controlled with: Pressure Patient tolerated procedure: Patient tolerated procedure well - Additional Wound Wound debrided: transmetatarsal site Laterality: Left Wound Grade/Stage: grade 1 Type of Debridement: Excisional debridement Anesthesia Used: 4% Lidocaine Solution Depth: in the subcutaneous layer Percentage of wound debrided: 100 Instrument Used: #15 blade Tissue Removed: fibrous, devitalized subcutaneous, biofilm, slough Severity: Fat Layer Exposed Amount of bleeding with debridement: Mild Bleeding Controlled with: Pressure Patient tolerated procedure: Patient tolerated procedure well Assessment/Plan Active Problems Ulcer of left lower extremity with fat layer exposed (Chronic) Ulcer of right lower extremity with fat layer exposed (Chronic) Type 2 diabetes mellitus with diabetic polyneuropathy (Chronic) Malnutrition (Chronic) Obesity (Chronic) Lower extremity edema (Chronic) Assessment: right leg ulcers-stable. right diabetic heel ulcer with fat exposed and medically treated osteomyelitis of the calcaneus -medically treated. Left foot ulcer with fat exposed. s/p left transmetatarsal amputation with complex closure and percutaneous achilles tendon lengthening performed on 08/05/2016. This was performed secondary to abscess/septic joint/ left foot infected ulceration - dehisced and ulcer now central and lateral ( considered grade 1). edema/venous insufficiency. diabetic neuropathy. delayed healing / malnutrition. obesity. non compliance Plan: I discussed his case and treatment plan. Subcutaneous excisional debridement of the right heel ulcer, right leg, and left foot ulcer was performed today as noted in the clinical panel. It is noted he completed a full course of advanced wound care product, epifix,application. He was preapproved for puraply, and advanced wound care product with collagen and antimicrobial agent. This was applied after also debridement as noted in the clinical panel, verbal consent, saline irrigation. The product was secured in place with Steri-Strips and wound veil. I recommend continued home nursing care daily change the outer dressing with Aquacel due to his moderate to high level of usual drainage. To apply Aquacel to the other lateral part of the right leg cluster that does not have puraply applied; home health can help with this. He was approved for regranex and this will be mailed to his home. He was advised on proper use and the purpose of this new wound care product. . To maintain improved skin integrity by applying lac hydrin lotion to both legs daily. Continue circaid wraps bilateral legs daily; it is okay to apply Mateus wrap instead of the CircAid foot wrap to better keep his wound dressings in place. To continue diuretic medications per primary care physician.To elevate legs at rest. Compliance is imperative and this was discussed again today. To continue with portion control for weight loss and proper glycemic control and nutritional supplementation to optimize healing. His hemoglobin A1c went from 9.0 to 7.4. he takes a way protein-based supplement at home and he was advised to continue in addition to a well-balanced nutritious diet. All of his questions were answered. He understands he is still at risk for limb loss. Serial labs (cbc, crp, esr) and x-rays were ordered for his right foot to monitor his previous osteomyelitis site. This was also reviewed today. His white blood cell count was 9.2, sedimentation rate 90, C-reactive protein 27.9. The x-rays did not demonstrate any progressive calcaneus proliferation or acute injuries When compared to his previous x-rays; he has known history of medically treated osteomyelitis to the site. I also recommend his home health provide deconditioning prevention training lower extremity strengthening. It is noted he cannot fully walk on his limbs however I recommend preventing further deterioration if possible. Jair machuca they are continuing to work with him on this. He understands the lab elevations may be due to his recent bronchitis episode. Serial trends will continue to be monitored and obtained during the healing process. To follow-up at the wound care center in 1 week or call sooner if he has any questions or concerns.
[2017-06-03 15:16] VITALS: BP 153/59; PULSE 75; RESP 18; TEMP 36.3
--- NOTE | 2017-06-03 16:33 | PCM.WC.PN ---
(1) Ulcer of left lower extremity with fat layer exposed Status: Chronic Current Visit: Yes Code(s): L97.922 - Non-pressure chronic ulcer of unspecified part of left lower leg with fat layer exposed (2) Ulcer of right lower extremity with fat layer exposed Status: Chronic Current Visit: Yes Code(s): L97.912 - Non-pressure chronic ulcer of unspecified part of right lower leg with fat layer exposed (3) Type 2 diabetes mellitus with diabetic polyneuropathy Status: Chronic Current Visit: Yes Code(s): E11.42 - Type 2 diabetes mellitus with diabetic polyneuropathy (4) Malnutrition Status: Chronic Current Visit: Yes Code(s): E46 - Unspecified protein-calorie malnutrition (5) Obesity Status: Chronic Current Visit: Yes Code(s): E66.9 - Obesity, unspecified (6) Lower extremity edema Status: Chronic Current Visit: Yes Code(s): R60.0 - Localized edema (7) Diabetes mellitus with polyneuropathy Status: Chronic Current Visit: No Qualifiers: Diabetes mellitus type: type 2 Qualified Code(s): E11.42 - Type 2 diabetes mellitus with diabetic polyneuropathy Code(s): E11.42 - Type 2 diabetes mellitus with diabetic polyneuropathy (8) Osteomyelitis of foot Status: Resolved Current Visit: Yes Qualifiers: Laterality: right Code(s): M86.9 - Osteomyelitis, unspecified (9) Chronic ulcer of left foot with fat layer exposed Status: Chronic Current Visit: Yes Code(s): L97.522 - Non-pressure chronic ulcer of other part of left foot with fat layer exposed (10) Ulcer of right foot with fat layer exposed Status: Chronic Current Visit: Yes Code(s): L97.512 - Non-pressure chronic ulcer of other part of right foot with fat layer exposed Type of Wound Date of Service: 06/03/17 Chief Complaint: Right heel ulcer with delayed healing. 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 right leg ulcers new. left leg ulcer new History of Wound: This 62 year old male was seen for right heel ulcer with chronic osteomyelitis and for left foot delayed healing wound. His multiple new leg and foot ulcers noted today. He is concerned his home health aide has been applying his dressings too tight and reports the [place] wraps are cutting into his skin. He was advised not to put his CircAid wrap on yesterday to decrease pressure to his legs and this was left off. He denies routine ambulation. He is awaiting for arrival of the commode and an additional assistive wheelchair device to prevent overactivity at home. He denies pain. He denies fever, chill, nausea, vomiting. Progress of Wound: stable. multiple new wounds - Physical Exam Vital Signs Temp Pulse Resp BP 97.3 F L 75 18 153/59 H 06/03/17 15:16 06/03/17 15:16 06/03/17 15:16 06/03/17 15:16 General: Alert, Oriented x3, Cooperative Extremities: No cyanosis, Capillary Refill Less than 3 Seconds, No Calf Tenderness - Negative Keara and Simmons sign bilateral, Diminished Peripheral Pulses, Edema - Increased bilateral lower extremities; moderate, Tenderness - No pain with manipulation bilateral Skin: Ulcer/ Wound - No purulence, no odor, no streaking. He does have a new large wound to the right anterior leg posterior right leg posterior left leg and dorsal right foot. These appear to have a well adhered eschar component at the sites where the dressing was applied; there is a concern that this is an associated dressing burn. No exposed bone or tendon to any sites bilateral Wound Measurements and Assessment WC - Nurse 1 - General Ulcer Measurement Start: 05/27/17 14:55 Freq: Status: Active Protocol: Activity Type Activity Date Activity User E-Sign Co-Sign Detail Recorded Client Recorded Date Recorded By Document 06/03/17 15:16 MW [id number] 06/03/17 15:41 MW 06/03/17 15:16 Wound Center Nurse 1 [Ulcer Assessment] #11 LEFT ANKLE - POSTERIOR -Combined with other wound No -Current Size (cm) - Length 2.5 -Current Size (cm) - Width 1.0 -Current Size (cm) - Depth 0.1 -Total Square Cm 2.50 -Date of Last Picture (Recall this 06/03/17 field) -Photo Taken Yes -Epithelialization None Present -Tunneling No -Undermining/Tunneling No -Circular Undermining No -Exudate Amt Small (1-33%) -Exudate Type Serosanguineous -Wound Margin Distinct, Outline Attached -Granulation Amt Small (1-33%) -Granulation Quality [place] -Slough/Fibrin Yes -Necrosis Amt Large (67-100%) -Necrotic Tissue Type Adherent Slough -Structure Exposed N/A -Texture (Susy-wound Skin Appearance) Assessed Localized Edema -Moisture (Susy-wound Skin Appearance Assessed ) Dry/Scaly -Color (Susy-wound Skin Appearance) Assessed Hemosiderin Staining Rubor -Temperature (Susy-wound Skin No Abnormality Appearance) (Pt Warm) -Tenderness on Palpation (Susy-wound No Skin Appearance) -Ulcer Cleansing SOAP AND WATER -Foul Odor after Cleansing No -Anesthetic Used 4% Lidocaine Solution #10 RIGHT ANKLE- ANTERIOR -Combined with other wound No -Current Size (cm) - Length 3.8 -Current Size (cm) - Width 5.0 -Current Size (cm) - Depth 0.1 -Total Square Cm 19.00 -Date of Last Picture (Recall this 06/03/17 field) -Photo Taken Yes -Epithelialization None Present -Tunneling No -Undermining/Tunneling No -Circular Undermining No -Exudate Amt Small (1-33%) -Exudate Type Serosanguineous -Wound Margin Distinct, Outline Attached -Granulation Amt Small (1-33%) -Granulation Quality [place] -Slough/Fibrin Yes -Necrosis Amt Large (67-100%) -Necrotic Tissue Type Adherent Slough -Structure Exposed N/A -Texture (Susy-wound Skin Appearance) Assessed Localized Edema -Moisture (Susy-wound Skin Appearance Assessed ) Dry/Scaly -Color (Susy-wound Skin Appearance) Assessed Hemosiderin Staining Rubor -Temperature (Susy-wound Skin No Abnormality Appearance) (Pt Warm) -Tenderness on Palpation (Susy-wound No Skin Appearance) -Ulcer Cleansing SOAP AND WATER -Foul Odor after Cleansing No -Anesthetic Used 4% Lidocaine Solution 8-right cluster bernstein -Combined with other wound No -Current Size (cm) - Length 14.0 -Current Size (cm) - Width 5.0 -Current Size (cm) - Depth 0.1 -Total Square Cm 70.00 -Date of Last Picture (Recall this 06/03/17 field) -Photo Taken Yes -Epithelialization None Present -Tunneling No -Undermining/Tunneling No -Circular Undermining No -Exudate Amt Medium (34-66%) -Exudate Type Serosanguineous -Wound Margin Flat & Intact -Granulation Amt Large (67-100%) -Granulation Quality Red -Slough/Fibrin Yes -Necrosis Amt Small (1-33%) -Necrotic Tissue Type Adherent Slough -Structure Exposed N/A -Texture (Susy-wound Skin Appearance) Assessed Excoriation Localized Edema -Moisture (Susy-wound Skin Appearance Assessed ) Dry/Scaly -Color (Susy-wound Skin Appearance) Assessed Hemosiderin Staining Rubor -Temperature (Susy-wound Skin No Abnormality Appearance) (Pt Warm) -Tenderness on Palpation (Susy-wound No Skin Appearance) -Ulcer Cleansing soap and water -Foul Odor after Cleansing No -Anesthetic Used 4% Lidocaine Solution #4 Left central TMA -Combined with other wound No -Current Size (cm) - Length 0.9 -Current Size (cm) - Width 0.3 -Current Size (cm) - Depth 0.2 -Total Square Cm 0.27 -Date of Last Picture (Recall this 06/03/17 field) -Photo Taken Yes -Epithelialization None Present -Tunneling No -Undermining/Tunneling No -Circular Undermining No -Exudate Amt Small (1-33%) -Exudate Type Serosanguineous -Wound Margin Distinct, Outline Attached -Granulation Amt None Present (0 %) -Granulation Quality N/A -Slough/Fibrin Yes -Necrosis Amt Large (67-100%) -Necrotic Tissue Type Adherent Slough -Structure Exposed N/A -Texture (Susy-wound Skin Appearance) Assessed Localized Edema Scarring -Moisture (Susy-wound Skin Appearance Assessed ) Dry/Scaly -Color (Susy-wound Skin Appearance) Assessed Hemosiderin Staining -Temperature (Susy-wound Skin No Abnormality Appearance) (Pt Warm) -Tenderness on Palpation (Susy-wound No Skin Appearance) -Ulcer Cleansing soap and water -Foul Odor after Cleansing No -Anesthetic Used 4% Lidocaine Solution #1 right medial heel -Combined with other wound No -Current Size (cm) - Length 1.0 -Current Size (cm) - Width 4.0 -Current Size (cm) - Depth 0.2 -Total Square Cm 4.00 -Date of Last Picture (Recall this 06/03/17 field) -Photo Taken Yes -Epithelialization None Present -Tunneling No -Undermining/Tunneling No -Circular Undermining No -Exudate Amt Small (1-33%) -Exudate Type Serosanguineous -Wound Margin Distinct, Outline Attached -Granulation Amt Small (1-33%) -Granulation Quality Red -Slough/Fibrin Yes -Necrosis Amt Medium (34-66%) -Necrotic Tissue Type Adherent Slough -Structure Exposed N/A -Texture (Susy-wound Skin Appearance) Assessed Callus Localized Edema Scarring -Moisture (Susy-wound Skin Appearance Assessed ) Dry/Scaly -Color (Susy-wound Skin Appearance) Assessed Rubor -Temperature (Susy-wound Skin No Abnormality Appearance) (Pt Warm) -Tenderness on Palpation (Susy-wound No Skin Appearance) -Ulcer Cleansing soap and water -Foul Odor after Cleansing No -Anesthetic Used 4% Lidocaine Solution [Edema Assessment] -Lower Limb Edema Present Yes -Right Calf (cm) 48.4 -Right Ankle (cm) 27.6 -Left Calf (cm) 44.5 -Left Ankle (cm) 26.5 WC - Nurse 2 - General Ulcer CM Notes Start: 05/27/17 14:55 Freq: Status: Active Protocol: Activity Type Activity Date Activity User E-Sign Co-Sign Detail Recorded Client Recorded Date Recorded By Document 06/03/17 16:18 [id number] 06/03/17 16:22 06/03/17 16:18 Wound Center Nurse 2 [Procedure/Treatment] #11 LEFT ANKLE - POSTERIOR -Time 16:18 -Correct Patient Yes -Correct Side, Site, Position Yes -Correct Procedure Yes -Procedure Performed Yes -Type of Procedure Debridement -Clinical Debridement Subcutaneous -Post Debridement Size (cm) - Length 2.6 -Post Debridement Size (cm) - Width 1.1 -Post Debridement Size (cm) - Depth 0.1 -Total Square Cm 2.86 -Wound/Ulcer Outcome Not Healed -Ulcer Cleansing Rinsed/ Irrigated with Saline -Foul Odor after Cleansing No -Bioengineered Tissue No -Topical Lidocaine (%) 4 -Bleeding Controlled with Pressure -Treatment Response Procedure Tolerated Well #10 RIGHT ANKLE- ANTERIOR -Time 16:19 -Correct Patient Yes -Correct Side, Site, Position Yes -Correct Procedure Yes -Procedure Performed Yes -Type of Procedure Debridement -Clinical Debridement Subcutaneous -Post Debridement Size (cm) - Length 3.9 -Post Debridement Size (cm) - Width 5.1 -Post Debridement Size (cm) - Depth 0.1 -Total Square Cm 19.89 -Wound/Ulcer Outcome Not Healed -Ulcer Cleansing Rinsed/ Irrigated with Saline -Foul Odor after Cleansing No -Bioengineered Tissue No -Topical Lidocaine (%) 4 -Bleeding Controlled with Pressure -Treatment Response Procedure Tolerated Well 8-right cluster bernstein -Time 16:19 -Correct Patient Yes -Correct Side, Site, Position Yes -Correct Procedure Yes -Procedure Performed Yes -Type of Procedure Debridement -Clinical Debridement Subcutaneous -Post Debridement Size (cm) - Length 14.1 -Post Debridement Size (cm) - Width 5.1 -Post Debridement Size (cm) - Depth 0.1 -Total Square Cm 71.91 -Wound/Ulcer Outcome Not Healed -Ulcer Cleansing Rinsed/ Irrigated with Saline -Foul Odor after Cleansing No -Bioengineered Tissue No -Topical Lidocaine (%) 4 -Bleeding Controlled with Pressure -Treatment Response Procedure Tolerated Well #6 Right Posterior LE -Time 16:22 -Correct Patient Yes -Correct Side, Site, Position Yes -Correct Procedure Yes -Procedure Performed Yes -Type of Procedure Debridement -Clinical Debridement Subcutaneous -Post Debridement Size (cm) - Length 2.5 -Post Debridement Size (cm) - Width 2.0 -Post Debridement Size (cm) - Depth 0.1 -Total Square Cm 5.00 -Wound/Ulcer Outcome Not Healed -Ulcer Cleansing Rinsed/ Irrigated with Saline -Foul Odor after Cleansing No -Bioengineered Tissue No -Topical Lidocaine (%) 4 -Bleeding Controlled with Pressure -Treatment Response Procedure Tolerated Well #4 Left central TMA -Time 16:20 -Correct Patient Yes -Correct Side, Site, Position Yes -Correct Procedure Yes -Procedure Performed Yes -Type of Procedure Debridement -Clinical Debridement Subcutaneous -Post Debridement Size (cm) - Length 1.0 -Post Debridement Size (cm) - Width 0.4 -Post Debridement Size (cm) - Depth 0.2 -Total Square Cm 0.40 -Wound/Ulcer Outcome Not Healed -Ulcer Cleansing Rinsed/ Irrigated with Saline -Foul Odor after Cleansing No -Bioengineered Tissue No -Topical Lidocaine (%) 4 -Bleeding Controlled with Pressure -Treatment Response Procedure Tolerated Well #1 right medial heel -Time 16:20 -Correct Patient Yes -Correct Side, Site, Position Yes -Correct Procedure Yes -Procedure Performed Yes -Type of Procedure Debridement -Clinical Debridement Subcutaneous -Post Debridement Size (cm) - Length 1.1 -Post Debridement Size (cm) - Width 4.1 -Post Debridement Size (cm) - Depth 0.2 -Total Square Cm 4.51 -Wound/Ulcer Outcome Not Healed -Ulcer Cleansing Rinsed/ Irrigated with Saline -Foul Odor after Cleansing No -Bioengineered Tissue No -Topical Lidocaine (%) 4 -Bleeding Controlled with Pressure -Treatment Response Procedure Tolerated Well [See Physician Procedure note for Specifics] Pain Scale: 0-10 Numeric [Pain] -Is Patient Pain Free? Yes Musculoskeletal: No Tenderness to Palpation of Joints or Extremities, Muscle Wasting, - - Compartments lower extremity soft. Transmetatarsal amputation left foot noted. Hallux amputation right foot noted Neurological: - - lack of Epicritic sensation light touch bilateral Psych/Mental Status: Normal Affect, Appropriate Debridement Note Post-Debridement Measurements/Treatment WC - Nurse 2 - General Ulcer CM Notes Start: 05/27/17 14:55 Freq: Status: Active Protocol: Activity Type Activity Date Activity User E-Sign Co-Sign Detail Recorded Client Recorded Date Recorded By Document 05/27/17 15:35 [id number] 05/27/17 15:55 Document 06/03/17 16:18 [id number] 06/03/17 16:22 05/27/17 06/03/17 15:35 16:18 Wound Center Nurse 2 #11 LEFT ANKLE - POSTERIOR -Time 16:18 -Correct Patient Yes -Correct Side, Site, Position Yes -Correct Procedure Yes -Procedure Performed Yes -Type of Procedure Debridement -Clinical Debridement Subcutaneous -Post Debridement Size (cm) - Length 2.6 -Post Debridement Size (cm) - Width 1.1 -Post Debridement Size (cm) - Depth 0.1 -Total Square Cm 2.86 -Wound/Ulcer Outcome Not Healed -Ulcer Cleansing Rinsed/ Irrigated with Saline -Foul Odor after Cleansing No -Bioengineered Tissue No -Topical Lidocaine (%) 4 -Bleeding Controlled with Pressure -Treatment Response Procedure Tolerated Well #10 RIGHT ANKLE- ANTERIOR -Time 16:19 -Correct Patient Yes -Correct Side, Site, Position Yes -Correct Procedure Yes -Procedure Performed Yes -Type of Procedure Debridement -Clinical Debridement Subcutaneous -Post Debridement Size (cm) - Length 3.9 -Post Debridement Size (cm) - Width 5.1 -Post Debridement Size (cm) - Depth 0.1 -Total Square Cm 19.89 -Wound/Ulcer Outcome Not Healed -Ulcer Cleansing Rinsed/ Irrigated with Saline -Foul Odor after Cleansing No -Bioengineered Tissue No -Topical Lidocaine (%) 4 -Bleeding Controlled with Pressure -Treatment Response Procedure Tolerated Well 8-right cluster bernstein -Time 15:36 16:19 -Correct Patient Yes Yes -Correct Side, Site, Position Yes Yes -Correct Procedure Yes Yes -Procedure Performed Yes Yes -Type of Procedure Debridement Debridement -Clinical Debridement Subcutaneous Subcutaneous -Post Debridement Size (cm) - Length 3 14.1 -Post Debridement Size (cm) - Width 2.8 5.1 -Post Debridement Size (cm) - Depth 0.1 0.1 -Total Square Cm 8.4 71.91 -Wound/Ulcer Outcome Not Healed Not Healed -Ulcer Cleansing Rinsed/ Rinsed/ Irrigated with Irrigated with Saline Saline -Foul Odor after Cleansing No No -Bioengineered Tissue Yes No -Type of bioengineered Tissue [id number] -Expiration Date 01/22/19 -Product Lot Number [id number] -Percent Used 100 -Saline Lot Number [id number] -Topical Lidocaine (%) 4 -Bleeding Controlled with Pressure Pressure -Treatment Response Procedure Procedure Tolerated Well Tolerated Well #6 Right Posterior LE -Time 16:22 -Correct Patient Yes -Correct Side, Site, Position Yes -Correct Procedure Yes -Procedure Performed Yes -Type of Procedure Debridement -Clinical Debridement Subcutaneous -Post Debridement Size (cm) - Length 2.5 -Post Debridement Size (cm) - Width 2.0 -Post Debridement Size (cm) - Depth 0.1 -Total Square Cm 5.00 -Wound/Ulcer Outcome Not Healed -Ulcer Cleansing Rinsed/ Irrigated with Saline -Foul Odor after Cleansing No -Bioengineered Tissue No -Topical Lidocaine (%) 4 -Bleeding Controlled with Pressure -Treatment Response Procedure Tolerated Well #4 Left central TMA -Time 15:36 16:20 -Correct Patient Yes Yes -Correct Side, Site, Position Yes Yes -Correct Procedure Yes Yes -Procedure Performed Yes Yes -Type of Procedure Debridement Debridement -Clinical Debridement Subcutaneous Subcutaneous -Post Debridement Size (cm) - Length 0.5 1.0 -Post Debridement Size (cm) - Width 0.4 0.4 -Post Debridement Size (cm) - Depth 0.3 0.2 -Total Square Cm 0.20 0.40 -Wound/Ulcer Outcome Not Healed Not Healed -Ulcer Cleansing Rinsed/ Rinsed/ Irrigated with Irrigated with Saline Saline -Foul Odor after Cleansing No No -Bioengineered Tissue Yes No -Type of bioengineered Tissue [id number] -Expiration Date 01/22/19 -Product Lot Number [id number] -Percent Used 100 -Saline Lot Number [id number] -Topical Lidocaine (%) 4 -Bleeding Controlled with Pressure Pressure -Treatment Response Procedure Procedure Tolerated Well Tolerated Well #1 right medial heel -Time 15:37 16:20 -Correct Patient Yes Yes -Correct Side, Site, Position Yes Yes -Correct Procedure Yes Yes -Procedure Performed Yes Yes -Type of Procedure Debridement Debridement -Clinical Debridement Subcutaneous Subcutaneous -Post Debridement Size (cm) - Length 4 1.1 -Post Debridement Size (cm) - Width 1.3 4.1 -Post Debridement Size (cm) - Depth 0.3 0.2 -Total Square Cm 5.2 4.51 -Wound/Ulcer Outcome Not Healed Not Healed -Ulcer Cleansing Rinsed/ Rinsed/ Irrigated with Irrigated with Saline Saline -Foul Odor after Cleansing No No -Bioengineered Tissue Yes No -Type of bioengineered Tissue [id number] -Expiration Date 01/22/19 -Product Lot Number [id number] -Percent Used 100 -Saline Lot Number [id number] -Topical Lidocaine (%) 4 -Bleeding Controlled with Pressure Pressure -Treatment Response Procedure Procedure Tolerated Well Tolerated Well Pain Scale: 0-10 Numeric Is Patient Pain Free? Yes Yes Wound debrided: anterior leg Laterality: Right Wound Grade/Stage: grade1 Type of Debridement: Excisional debridement Anesthesia Used: 4% Lidocaine Solution Depth: in the subcutaneous layer Percentage of wound debrided: 100 Instrument Used: #15 blade Tissue Removed: fibrous, devitalized subcutaneous tissue, biofilm, slough Severity: Fat Layer Exposed Amount of bleeding with debridement: Mild Bleeding Controlled with: Pressure Patient tolerated procedure well - Additional Wound Wound debrided: posterior lower leg Laterality: Right Wound Grade/Stage: grade 1 Type of Debridement: Excisional debridement Anesthesia Used: 4% Lidocaine Solution Depth: in the subcutaneous layer Percentage of wound debrided: 100 Instrument Used: #15 blade Tissue Removed: fibrous, devitalized subcutaneous tissue, biofilm, slough Severity: Fat Layer Exposed Amount of bleeding with debridement: Mild Bleeding Controlled with: Pressure Patient tolerated procedure: Patient tolerated procedure well - Additional Wound Wound debrided: dorsal foot Laterality: Right Wound Grade/Stage: grade 1 Type of Debridement: Excisional debridement Anesthesia Used: 4% Lidocaine Solution Depth: in the subcutaneous layer Percentage of wound debrided: 100 Instrument Used: #15 blade Tissue Removed: fibrous, devitalized subcutaneous tissue, biofilm, slough, some eschar Severity: Fat Layer Exposed Amount of bleeding with debridement: Mild Bleeding Controlled with: Pressure Patient tolerated procedure: Patient tolerated procedure well - Additional Wound Wound debrided: heel Laterality: Right Wound Grade/Stage: grade 3 Type of Debridement: Excisional debridement Anesthesia Used: 4% Lidocaine Solution Depth: in the subcutaneous layer Percentage of wound debrided: 100 Instrument Used: #15 blade Tissue Removed: fibrous, devitalized subcutaneous tissue, biofilm, slough Severity: Fat Layer Exposed Amount of bleeding with debridement: Mild Bleeding Controlled with: Pressure Patient tolerated procedure: Patient tolerated procedure well - Additional Wound Wound debrided: distal foot Laterality: Left Wound Grade/Stage: grade 1 Type of Debridement: Excisional debridement Anesthesia Used: 4% Lidocaine Solution Depth: in the subcutaneous layer Percentage of wound debrided: 100 Instrument Used: #15 blade Tissue Removed: fibrous, devitalized subcutaneous tissue, biofilm, slough Severity: Fat Layer Exposed Amount of bleeding with debridement: Mild Bleeding Controlled with: Pressure Patient tolerated procedure: Patient tolerated procedure well - Additional Wound Wound debrided: posterior lower leg Laterality: Left Wound Grade/Stage: grade 1 Type of Debridement: Excisional debridement Anesthesia Used: 4% Lidocaine Solution Depth: in the subcutaneous layer Percentage of wound debrided: 100 Instrument Used: #15 blade Tissue Removed: fibrous, devitalized subcutaneous tissue, biofilm, slough Severity: Fat Layer Exposed Amount of bleeding with debridement: Mild Bleeding Controlled with: Pressure Patient tolerated procedure: Patient tolerated procedure well Assessment/Plan Active Problems Ulcer of left lower extremity with fat layer exposed (Chronic) Chronic ulcer of left foot with fat layer exposed (Chronic) Ulcer of right foot with fat layer exposed (Chronic) Ulcer of right lower extremity with fat layer exposed (Chronic) Type 2 diabetes mellitus with diabetic polyneuropathy (Chronic) Malnutrition (Chronic) Obesity (Chronic) Lower extremity edema (Chronic) Assessment: right leg ulcers new and progressively worse. new left leg ulcre. new right dorsal foot ulcer. right diabetic heel ulcer with fat exposed and medically treated. left chronic foot ulcer with fat layer exposed. osteomyelitis of the right calcaneus -medically treated. s/p left transmetatarsal amputation with complex closure and percutaneous achilles tendon lengthening performed on 08/05/2016. This was performed secondary to abscess/septic joint/left foot infected ulceration - dehisced and ulcer now central and lateral (considered grade 1). edema/venous insufficiency. diabetic neuropathy. delayed healing / malnutrition. obesity. non compliance Plan: I discussed his case and treatment plan. Subcutaneous excisional debridement to all bilateral ulcer sites performed today as noted in the clinical panel. It is noted he completed a full course of advanced wound care product, epifix,application. To apply fibricol to the new ulcer sites and continue regranex to the right heel and left transmetatarsal amputation site. Home health can help with this. He brought this with him today. . To maintain improved skin integrity by applying lac hydrin lotion to both legs daily. Continue circaid wraps bilateral legs daily; it is okay to apply tubigrip prior to application of CircAid foot wrap to better keep his wound dressings in place. To avoid over tightening. Some of his wound formation appears to be dressing or pressure related. I do not see any signs of systemic illness or overt clinical signs of infection. Screening labs and x-rays of the right lower extremity were ordered today and results are pending to further rule this out. To continue diuretic medications per primary care physician.To elevate legs at rest. Compliance is imperative and this was discussed again today. To continue with portion control for weight loss and proper glycemic control and nutritional supplementation to optimize healing. His hemoglobin A1c went from 9.0 to 7.4. he takes a whey protein-based supplement at home and he was advised to continue in addition to a well-balanced nutritious diet. All of his questions were answered. He understands he is still at risk for limb loss. I also recommend his home health provide deconditioning prevention training lower extremity strengthening. It is noted he cannot fully walk on his limbs however I recommend preventing further deterioration if possible. Jair relates they are continuing to work with him on this. He understands the lab elevations may be due to his recent bronchitis episode. To proceed with obtaining a commode for his home and additional safe assistive home devices. To [email or web address] at the wound care center in 1 week or call sooner if he has any questions or concerns.
--- NOTE | 2017-06-03 16:45 | PN.PCM_ITS ---
(1) Ulcer of left lower extremity with fat layer exposed Status: Chronic Current Visit: Yes Code(s): L97.922 - Non-pressure chronic ulcer of unspecified part of left lower leg with fat layer exposed (2) Ulcer of right lower extremity with fat layer exposed Status: Chronic Current Visit: Yes Code(s): L97.912 - Non-pressure chronic ulcer of unspecified part of right lower leg with fat layer exposed (3) Type 2 diabetes mellitus with diabetic polyneuropathy Status: Chronic Current Visit: Yes Code(s): E11.42 - Type 2 diabetes mellitus with diabetic polyneuropathy (4) Malnutrition Status: Chronic Current Visit: Yes Code(s): E46 - Unspecified protein- calorie malnutrition (5) Obesity Status: Chronic Current Visit: Yes Code(s): E66.9 - Obesity, unspecified (6) Lower extremity edema Status: Chronic Current Visit: Yes Code(s): R60.0 - Localized edema (7) Diabetes mellitus with polyneuropathy Status: Chronic Current Visit: No Qualifiers: Diabetes mellitus type: type 2 Qualified Code(s): E11.42 - Type 2 diabetes mellitus with diabetic polyneuropathy Code(s): E11.42 - Type 2 diabetes mellitus with diabetic polyneuropathy (8) Osteomyelitis of foot Status: Resolved Current Visit: Yes Qualifiers: Laterality: right Code(s): M86.9 - Osteomyelitis, unspecified (9) Chronic ulcer of left foot with fat layer exposed Status: Chronic Current Visit: Yes Code(s): L97.522 - Non-pressure chronic ulcer of other part of left foot with fat layer exposed (10) Ulcer of right foot with fat layer exposed Status: Chronic Current Visit: Yes Code(s): L97.512 - Non-pressure chronic ulcer of other part of right foot with fat layer exposed Type of Wound Date of Service: 06/03/17 Chief Complaint: Right heel ulcer with delayed healing. 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 right leg ulcers new. left leg ulcer new History of Wound: This 62 year old male was seen for right heel ulcer with chronic osteomyelitis and for left foot delayed healing wound. His multiple new leg and foot ulcers noted today. He is concerned his home health aide has been applying his dressings too tight and reports the [place] wraps are cutting into his skin. He was advised not to put his CircAid wrap on yesterday to decrease pressure to his legs and this was left off. He denies routine ambulation. He is awaiting for arrival of the commode and an additional assistive wheelchair device to prevent overactivity at home. He denies pain. He denies fever, chill, nausea, vomiting. Progress of Wound: stable. multiple new wounds - Physical Exam Vital Signs Temp Pulse Resp BP 97.3 F L 75 18 153/59 H 06/03/17 15:16 06/03/17 15:16 06/03/17 15:16 06/03/17 15:16 General: Alert, Oriented x3, Cooperative Extremities: No cyanosis, Capillary Refill Less than 3 Seconds, No Calf Tenderness - Negative Keara and Simmons sign bilateral, Diminished Peripheral Pulses, Edema - Increased bilateral lower extremities; moderate, Tenderness - No pain with manipulation bilateral Skin: Ulcer/ Wound - No purulence, no odor, no streaking. He does have a new large wound to the right anterior leg posterior right leg posterior left leg and dorsal right foot. These appear to have a well adhered eschar component at the sites where the dressing was applied; there is a concern that this is an associated dressing burn. No exposed bone or tendon to any sites bilateral Wound Measurements and Assessment WC - Nurse 1 - General Ulcer Measurement Start: 05/27/17 14:55 Freq: Status: Active Protocol: Activity Type Activity Date Activity User E-Sign Co-Sign Detail Recorded Client Recorded Date Recorded By Document 06/03/17 15:16 MW [id number] 06/03/17 15:41 MW 06/03/17 15:16 Wound Center Nurse 1 [Ulcer Assessment] #11 LEFT ANKLE - POSTERIOR -Combined with other wound No -Current Size (cm) - Length 2.5 -Current Size (cm) - Width 1.0 -Current Size (cm) - Depth 0.1 -Total Square Cm 2.50 -Date of Last Picture (Recall this 06/03/17 field) -Photo Taken Yes -Epithelialization None Present -Tunneling No -Undermining/Tunneling No -Circular Undermining No -Exudate Amt Small (1-33%) -Exudate Type Serosanguineous -Wound Margin Distinct, Outline Attached -Granulation Amt Small (1-33%) -Granulation Quality [place] -Slough/Fibrin Yes -Necrosis Amt Large (67-100%) -Necrotic Tissue Type Adherent Slough -Structure Exposed N/A -Texture (Susy-wound Skin Appearance) Assessed Localized Edema -Moisture (Susy-wound Skin Appearance Assessed ) Dry/Scaly -Color (Susy-wound Skin Appearance) Assessed Hemosiderin Staining Rubor -Temperature (Susy-wound Skin No Abnormality Appearance) (Pt Warm) -Tenderness on Palpation (Susy-wound No Skin Appearance) -Ulcer Cleansing SOAP AND WATER -Foul Odor after Cleansing No -Anesthetic Used 4% Lidocaine Solution #10 RIGHT ANKLE- ANTERIOR -Combined with other wound No -Current Size (cm) - Length 3.8 -Current Size (cm) - Width 5.0 -Current Size (cm) - Depth 0.1 -Total Square Cm 19.00 -Date of Last Picture (Recall this 06/03/17 field) -Photo Taken Yes -Epithelialization None Present -Tunneling No -Undermining/Tunneling No -Circular Undermining No -Exudate Amt Small (1-33%) -Exudate Type Serosanguineous -Wound Margin Distinct, Outline Attached -Granulation Amt Small (1-33%) -Granulation Quality [place] -Slough/Fibrin Yes -Necrosis Amt Large (67-100%) -Necrotic Tissue Type Adherent Slough -Structure Exposed N/A -Texture (Susy-wound Skin Appearance) Assessed Localized Edema -Moisture (Susy-wound Skin Appearance Assessed ) Dry/Scaly -Color (Susy-wound Skin Appearance) Assessed Hemosiderin Staining Rubor -Temperature (Susy-wound Skin No Abnormality Appearance) (Pt Warm) -Tenderness on Palpation (Susy-wound No Skin Appearance) -Ulcer Cleansing SOAP AND WATER -Foul Odor after Cleansing No -Anesthetic Used 4% Lidocaine Solution 8-right cluster bernstein -Combined with other wound No -Current Size (cm) - Length 14.0 -Current Size (cm) - Width 5.0 -Current Size (cm) - Depth 0.1 -Total Square Cm 70.00 -Date of Last Picture (Recall this 06/03/17 field) -Photo Taken Yes -Epithelialization None Present -Tunneling No -Undermining/Tunneling No -Circular Undermining No -Exudate Amt Medium (34-66%) -Exudate Type Serosanguineous -Wound Margin Flat & Intact -Granulation Amt Large (67-100%) -Granulation Quality Red -Slough/Fibrin Yes -Necrosis Amt Small (1-33%) -Necrotic Tissue Type Adherent Slough -Structure Exposed N/A -Texture (Susy-wound Skin Appearance) Assessed Excoriation Localized Edema -Moisture (Susy-wound Skin Appearance Assessed ) Dry/Scaly -Color (Susy-wound Skin Appearance) Assessed Hemosiderin Staining Rubor -Temperature (Susy-wound Skin No Abnormality Appearance) (Pt Warm) -Tenderness on Palpation (Susy-wound No Skin Appearance) -Ulcer Cleansing soap and water -Foul Odor after Cleansing No -Anesthetic Used 4% Lidocaine Solution #4 Left central TMA -Combined with other wound No -Current Size (cm) - Length 0.9 -Current Size (cm) - Width 0.3 -Current Size (cm) - Depth 0.2 -Total Square Cm 0.27 -Date of Last Picture (Recall this 06/03/17 field) -Photo Taken Yes -Epithelialization None Present -Tunneling No -Undermining/Tunneling No -Circular Undermining No -Exudate Amt Small (1-33%) -Exudate Type Serosanguineous -Wound Margin Distinct, Outline Attached -Granulation Amt None Present (0 %) -Granulation Quality N/A -Slough/Fibrin Yes -Necrosis Amt Large (67-100%) -Necrotic Tissue Type Adherent Slough -Structure Exposed N/A -Texture (Susy-wound Skin Appearance) Assessed Localized Edema Scarring -Moisture (Susy-wound Skin Appearance Assessed ) Dry/Scaly -Color (Susy-wound Skin Appearance) Assessed Hemosiderin Staining -Temperature (Susy-wound Skin No Abnormality Appearance) (Pt Warm) -Tenderness on Palpation (Susy-wound No Skin Appearance) -Ulcer Cleansing soap and water -Foul Odor after Cleansing No -Anesthetic Used 4% Lidocaine Solution #1 right medial heel -Combined with other wound No -Current Size (cm) - Length 1.0 -Current Size (cm) - Width 4.0 -Current Size (cm) - Depth 0.2 -Total Square Cm 4.00 -Date of Last Picture (Recall this 06/03/17 field) -Photo Taken Yes -Epithelialization None Present -Tunneling No -Undermining/Tunneling No -Circular Undermining No -Exudate Amt Small (1-33%) -Exudate Type Serosanguineous -Wound Margin Distinct, Outline Attached -Granulation Amt Small (1-33%) -Granulation Quality Red -Slough/Fibrin Yes -Necrosis Amt Medium (34-66%) -Necrotic Tissue Type Adherent Slough -Structure Exposed N/A -Texture (Susy-wound Skin Appearance) Assessed Callus Localized Edema Scarring -Moisture (Susy-wound Skin Appearance Assessed ) Dry/Scaly -Color (Susy-wound Skin Appearance) Assessed Rubor -Temperature (Susy-wound Skin No Abnormality Appearance) (Pt Warm) -Tenderness on Palpation (Susy-wound No Skin Appearance) -Ulcer Cleansing soap and water -Foul Odor after Cleansing No -Anesthetic Used 4% Lidocaine Solution [Edema Assessment] -Lower Limb Edema Present Yes -Right Calf (cm) 48.4 -Right Ankle (cm) 27.6 -Left Calf (cm) 44.5 -Left Ankle (cm) 26.5 WC - Nurse 2 - General Ulcer CM Notes Start: 05/27/17 14:55 Freq: Status: Active Protocol: Activity Type Activity Date Activity User E-Sign Co-Sign Detail Recorded Client Recorded Date Recorded By Document 06/03/17 16:18 [id number] 06/03/17 16:22 06/03/17 16:18 Wound Center Nurse 2 [Procedure/Treatment] #11 LEFT ANKLE - POSTERIOR -Time 16:18 -Correct Patient Yes -Correct Side, Site, Position Yes -Correct Procedure Yes -Procedure Performed Yes -Type of Procedure Debridement -Clinical Debridement Subcutaneous -Post Debridement Size (cm) - Length 2.6 -Post Debridement Size (cm) - Width 1.1 -Post Debridement Size (cm) - Depth 0.1 -Total Square Cm 2.86 -Wound/Ulcer Outcome Not Healed -Ulcer Cleansing Rinsed/ Irrigated with Saline -Foul Odor after Cleansing No -Bioengineered Tissue No -Topical Lidocaine (%) 4 -Bleeding Controlled with Pressure -Treatment Response Procedure Tolerated Well #10 RIGHT ANKLE- ANTERIOR -Time 16:19 -Correct Patient Yes -Correct Side, Site, Position Yes -Correct Procedure Yes -Procedure Performed Yes -Type of Procedure Debridement -Clinical Debridement Subcutaneous -Post Debridement Size (cm) - Length 3.9 -Post Debridement Size (cm) - Width 5.1 -Post Debridement Size (cm) - Depth 0.1 -Total Square Cm 19.89 -Wound/Ulcer Outcome Not Healed -Ulcer Cleansing Rinsed/ Irrigated with Saline -Foul Odor after Cleansing No -Bioengineered Tissue No -Topical Lidocaine (%) 4 -Bleeding Controlled with Pressure -Treatment Response Procedure Tolerated Well 8-right cluster bernstein -Time 16:19 -Correct Patient Yes -Correct Side, Site, Position Yes -Correct Procedure Yes -Procedure Performed Yes -Type of Procedure Debridement -Clinical Debridement Subcutaneous -Post Debridement Size (cm) - Length 14.1 -Post Debridement Size (cm) - Width 5.1 -Post Debridement Size (cm) - Depth 0.1 -Total Square Cm 71.91 -Wound/Ulcer Outcome Not Healed -Ulcer Cleansing Rinsed/ Irrigated with Saline -Foul Odor after Cleansing No -Bioengineered Tissue No -Topical Lidocaine (%) 4 -Bleeding Controlled with Pressure -Treatment Response Procedure Tolerated Well #6 Right Posterior LE -Time 16:22 -Correct Patient Yes -Correct Side, Site, Position Yes -Correct Procedure Yes -Procedure Performed Yes -Type of Procedure Debridement -Clinical Debridement Subcutaneous -Post Debridement Size (cm) - Length 2.5 -Post Debridement Size (cm) - Width 2.0 -Post Debridement Size (cm) - Depth 0.1 -Total Square Cm 5.00 -Wound/Ulcer Outcome Not Healed -Ulcer Cleansing Rinsed/ Irrigated with Saline -Foul Odor after Cleansing No -Bioengineered Tissue No -Topical Lidocaine (%) 4 -Bleeding Controlled with Pressure -Treatment Response Procedure Tolerated Well #4 Left central TMA -Time 16:20 -Correct Patient Yes -Correct Side, Site, Position Yes -Correct Procedure Yes -Procedure Performed Yes -Type of Procedure Debridement -Clinical Debridement Subcutaneous -Post Debridement Size (cm) - Length 1.0 -Post Debridement Size (cm) - Width 0.4 -Post Debridement Size (cm) - Depth 0.2 -Total Square Cm 0.40 -Wound/Ulcer Outcome Not Healed -Ulcer Cleansing Rinsed/ Irrigated with Saline -Foul Odor after Cleansing No -Bioengineered Tissue No -Topical Lidocaine (%) 4 -Bleeding Controlled with Pressure -Treatment Response Procedure Tolerated Well #1 right medial heel -Time 16:20 -Correct Patient Yes -Correct Side, Site, Position Yes -Correct Procedure Yes -Procedure Performed Yes -Type of Procedure Debridement -Clinical Debridement Subcutaneous -Post Debridement Size (cm) - Length 1.1 -Post Debridement Size (cm) - Width 4.1 -Post Debridement Size (cm) - Depth 0.2 -Total Square Cm 4.51 -Wound/Ulcer Outcome Not Healed -Ulcer Cleansing Rinsed/ Irrigated with Saline -Foul Odor after Cleansing No -Bioengineered Tissue No -Topical Lidocaine (%) 4 -Bleeding Controlled with Pressure -Treatment Response Procedure Tolerated Well [See Physician Procedure note for Specifics] Pain Scale: 0-10 Numeric [Pain] -Is Patient Pain Free? Yes Musculoskeletal: No Tenderness to Palpation of Joints or Extremities, Muscle Wasting, - - Compartments lower extremity soft. Transmetatarsal amputation left foot noted. Hallux amputation right foot noted Neurological: - - lack of Epicritic sensation light touch bilateral Psych/Mental Status: Normal Affect, Appropriate Debridement Note Post-Debridement Measurements/Treatment WC - Nurse 2 - General Ulcer CM Notes Start: 05/27/17 14:55 Freq: Status: Active Protocol: Activity Type Activity Date Activity User E-Sign Co-Sign Detail Recorded Client Recorded Date Recorded By Document 05/27/17 15:35 [id number] 05/27/17 15:55 Document 06/03/17 16:18 [id number] 06/03/17 16:22 05/27/17 06/03/17 15:35 16:18 Wound Center Nurse 2 #11 LEFT ANKLE - POSTERIOR -Time 16:18 -Correct Patient Yes -Correct Side, Site, Position Yes -Correct Procedure Yes -Procedure Performed Yes -Type of Procedure Debridement -Clinical Debridement Subcutaneous -Post Debridement Size (cm) - Length 2.6 -Post Debridement Size (cm) - Width 1.1 -Post Debridement Size (cm) - Depth 0.1 -Total Square Cm 2.86 -Wound/Ulcer Outcome Not Healed -Ulcer Cleansing Rinsed/ Irrigated with Saline -Foul Odor after Cleansing No -Bioengineered Tissue No -Topical Lidocaine (%) 4 -Bleeding Controlled with Pressure -Treatment Response Procedure Tolerated Well #10 RIGHT ANKLE- ANTERIOR -Time 16:19 -Correct Patient Yes -Correct Side, Site, Position Yes -Correct Procedure Yes -Procedure Performed Yes -Type of Procedure Debridement -Clinical Debridement Subcutaneous -Post Debridement Size (cm) - Length 3.9 -Post Debridement Size (cm) - Width 5.1 -Post Debridement Size (cm) - Depth 0.1 -Total Square Cm 19.89 -Wound/Ulcer Outcome Not Healed -Ulcer Cleansing Rinsed/ Irrigated with Saline -Foul Odor after Cleansing No -Bioengineered Tissue No -Topical Lidocaine (%) 4 -Bleeding Controlled with Pressure -Treatment Response Procedure Tolerated Well 8-right cluster bernstein -Time 15:36 16:19 -Correct Patient Yes Yes -Correct Side, Site, Position Yes Yes -Correct Procedure Yes Yes -Procedure Performed Yes Yes -Type of Procedure Debridement Debridement -Clinical Debridement Subcutaneous Subcutaneous -Post Debridement Size (cm) - Length 3 14.1 -Post Debridement Size (cm) - Width 2.8 5.1 -Post Debridement Size (cm) - Depth 0.1 0.1 -Total Square Cm 8.4 71.91 -Wound/Ulcer Outcome Not Healed Not Healed -Ulcer Cleansing Rinsed/ Rinsed/ Irrigated with Irrigated with Saline Saline -Foul Odor after Cleansing No No -Bioengineered Tissue Yes No -Type of bioengineered Tissue [id number] -Expiration Date 01/22/19 -Product Lot Number [id number] -Percent Used 100 -Saline Lot Number [id number] -Topical Lidocaine (%) 4 -Bleeding Controlled with Pressure Pressure -Treatment Response Procedure Procedure Tolerated Well Tolerated Well #6 Right Posterior LE -Time 16:22 -Correct Patient Yes -Correct Side, Site, Position Yes -Correct Procedure Yes -Procedure Performed Yes -Type of Procedure Debridement -Clinical Debridement Subcutaneous -Post Debridement Size (cm) - Length 2.5 -Post Debridement Size (cm) - Width 2.0 -Post Debridement Size (cm) - Depth 0.1 -Total Square Cm 5.00 -Wound/Ulcer Outcome Not Healed -Ulcer Cleansing Rinsed/ Irrigated with Saline -Foul Odor after Cleansing No -Bioengineered Tissue No -Topical Lidocaine (%) 4 -Bleeding Controlled with Pressure -Treatment Response Procedure Tolerated Well #4 Left central TMA -Time 15:36 16:20 -Correct Patient Yes Yes -Correct Side, Site, Position Yes Yes -Correct Procedure Yes Yes -Procedure Performed Yes Yes -Type of Procedure Debridement Debridement -Clinical Debridement Subcutaneous Subcutaneous -Post Debridement Size (cm) - Length 0.5 1.0 -Post Debridement Size (cm) - Width 0.4 0.4 -Post Debridement Size (cm) - Depth 0.3 0.2 -Total Square Cm 0.20 0.40 -Wound/Ulcer Outcome Not Healed Not Healed -Ulcer Cleansing Rinsed/ Rinsed/ Irrigated with Irrigated with Saline Saline -Foul Odor after Cleansing No No -Bioengineered Tissue Yes No -Type of bioengineered Tissue [id number] -Expiration Date 01/22/19 -Product Lot Number [id number] -Percent Used 100 -Saline Lot Number [id number] -Topical Lidocaine (%) 4 -Bleeding Controlled with Pressure Pressure -Treatment Response Procedure Procedure Tolerated Well Tolerated Well #1 right medial heel -Time 15:37 16:20 -Correct Patient Yes Yes -Correct Side, Site, Position Yes Yes -Correct Procedure Yes Yes -Procedure Performed Yes Yes -Type of Procedure Debridement Debridement -Clinical Debridement Subcutaneous Subcutaneous -Post Debridement Size (cm) - Length 4 1.1 -Post Debridement Size (cm) - Width 1.3 4.1 -Post Debridement Size (cm) - Depth 0.3 0.2 -Total Square Cm 5.2 4.51 -Wound/Ulcer Outcome Not Healed Not Healed -Ulcer Cleansing Rinsed/ Rinsed/ Irrigated with Irrigated with Saline Saline -Foul Odor after Cleansing No No -Bioengineered Tissue Yes No -Type of bioengineered Tissue [id number] -Expiration Date 01/22/19 -Product Lot Number [id number] -Percent Used 100 -Saline Lot Number [id number] -Topical Lidocaine (%) 4 -Bleeding Controlled with Pressure Pressure -Treatment Response Procedure Procedure Tolerated Well Tolerated Well Pain Scale: 0-10 Numeric Is Patient Pain Free? Yes Yes Wound debrided: anterior leg Laterality: Right Wound Grade/Stage: grade1 Type of Debridement: Excisional debridement Anesthesia Used: 4% Lidocaine Solution Depth: in the subcutaneous layer Percentage of wound debrided: 100 Instrument Used: #15 blade Tissue Removed: fibrous, devitalized subcutaneous tissue, biofilm, slough Severity: Fat Layer Exposed Amount of bleeding with debridement: Mild Bleeding Controlled with: Pressure Patient tolerated procedure well - Additional Wound Wound debrided: posterior lower leg Laterality: Right Wound Grade/Stage: grade 1 Type of Debridement: Excisional debridement Anesthesia Used: 4% Lidocaine Solution Depth: in the subcutaneous layer Percentage of wound debrided: 100 Instrument Used: #15 blade Tissue Removed: fibrous, devitalized subcutaneous tissue, biofilm, slough Severity: Fat Layer Exposed Amount of bleeding with debridement: Mild Bleeding Controlled with: Pressure Patient tolerated procedure: Patient tolerated procedure well - Additional Wound Wound debrided: dorsal foot Laterality: Right Wound Grade/Stage: grade 1 Type of Debridement: Excisional debridement Anesthesia Used: 4% Lidocaine Solution Depth: in the subcutaneous layer Percentage of wound debrided: 100 Instrument Used: #15 blade Tissue Removed: fibrous, devitalized subcutaneous tissue, biofilm, slough, some eschar Severity: Fat Layer Exposed Amount of bleeding with debridement: Mild Bleeding Controlled with: Pressure Patient tolerated procedure: Patient tolerated procedure well - Additional Wound Wound debrided: heel Laterality: Right Wound Grade/Stage: grade 3 Type of Debridement: Excisional debridement Anesthesia Used: 4% Lidocaine Solution Depth: in the subcutaneous layer Percentage of wound debrided: 100 Instrument Used: #15 blade Tissue Removed: fibrous, devitalized subcutaneous tissue, biofilm, slough Severity: Fat Layer Exposed Amount of bleeding with debridement: Mild Bleeding Controlled with: Pressure Patient tolerated procedure: Patient tolerated procedure well - Additional Wound Wound debrided: distal foot Laterality: Left Wound Grade/Stage: grade 1 Type of Debridement: Excisional debridement Anesthesia Used: 4% Lidocaine Solution Depth: in the subcutaneous layer Percentage of wound debrided: 100 Instrument Used: #15 blade Tissue Removed: fibrous, devitalized subcutaneous tissue, biofilm, slough Severity: Fat Layer Exposed Amount of bleeding with debridement: Mild Bleeding Controlled with: Pressure Patient tolerated procedure: Patient tolerated procedure well - Additional Wound Wound debrided: posterior lower leg Laterality: Left Wound Grade/Stage: grade 1 Type of Debridement: Excisional debridement Anesthesia Used: 4% Lidocaine Solution Depth: in the subcutaneous layer Percentage of wound debrided: 100 Instrument Used: #15 blade Tissue Removed: fibrous, devitalized subcutaneous tissue, biofilm, slough Severity: Fat Layer Exposed Amount of bleeding with debridement: Mild Bleeding Controlled with: Pressure Patient tolerated procedure: Patient tolerated procedure well Assessment/Plan Active Problems Ulcer of left lower extremity with fat layer exposed (Chronic) Chronic ulcer of left foot with fat layer exposed (Chronic) Ulcer of right foot with fat layer exposed (Chronic) Ulcer of right lower extremity with fat layer exposed (Chronic) Type 2 diabetes mellitus with diabetic polyneuropathy (Chronic) Malnutrition (Chronic) Obesity (Chronic) Lower extremity edema (Chronic) Assessment: right leg ulcers new and progressively worse. new left leg ulcre. new right dorsal foot ulcer. right diabetic heel ulcer with fat exposed and medically treated. left chronic foot ulcer with fat layer exposed. osteomyelitis of the right calcaneus -medically treated. s/p left transmetatarsal amputation with complex closure and percutaneous achilles tendon lengthening performed on 08/05/2016. This was performed secondary to abscess/septic joint/left foot infected ulceration - dehisced and ulcer now central and lateral (considered grade 1). edema/venous insufficiency. diabetic neuropathy. delayed healing / malnutrition. obesity. non compliance Plan: I discussed his case and treatment plan. Subcutaneous excisional debridement to all bilateral ulcer sites performed today as noted in the clinical panel. It is noted he completed a full course of advanced wound care product, epifix,application. To apply fibricol to the new ulcer sites and continue regranex to the right heel and left transmetatarsal amputation site. Home health can help with this. He brought this with him today. . To maintain improved skin integrity by applying lac hydrin lotion to both legs daily. Continue circaid wraps bilateral legs daily; it is okay to apply tubigrip prior to application of CircAid foot wrap to better keep his wound dressings in place. To avoid over tightening. Some of his wound formation appears to be dressing or pressure related. I do not see any signs of systemic illness or overt clinical signs of infection. Screening labs and x-rays of the right lower extremity were ordered today and results are pending to further rule this out. To continue diuretic medications per primary care physician.To elevate legs at rest. Compliance is imperative and this was discussed again today. To continue with portion control for weight loss and proper glycemic control and nutritional supplementation to optimize healing. His hemoglobin A1c went from 9.0 to 7.4. he takes a whey protein-based supplement at home and he was advised to continue in addition to a well-balanced nutritious diet. All of his questions were answered. He understands he is still at risk for limb loss. I also recommend his home health provide deconditioning prevention training lower extremity strengthening. It is noted he cannot fully walk on his limbs however I recommend preventing further deterioration if possible. Jair relates they are continuing to work with him on this. He understands the lab elevations may be due to his recent bronchitis episode. To proceed with obtaining a commode for his home and additional safe assistive home devices. To follow-up at the wound care center in 1 week or call sooner if he has any questions or concerns.
[2017-06-10 10:24] VITALS: BP 168/74; PULSE 75; RESP 18; TEMP 36.9
--- NOTE | 2017-06-10 10:28 | WC ---
pt in hospital for DVT from to thursday last week.
--- NOTE | 2017-06-10 11:40 | PN.PCM_ITS ---
(1) Ulcer of left lower extremity with fat layer exposed Status: Chronic Current Visit: Yes Code(s): L97.922 - Non-pressure chronic ulcer of unspecified part of left lower leg with fat layer exposed (2) Ulcer of right lower extremity with fat layer exposed Status: Chronic Current Visit: Yes Code(s): L97.912 - Non-pressure chronic ulcer of unspecified part of right lower leg with fat layer exposed (3) Type 2 diabetes mellitus with diabetic polyneuropathy Status: Chronic Current Visit: Yes Code(s): E11.42 - Type 2 diabetes mellitus with diabetic polyneuropathy (4) Malnutrition Status: Chronic Current Visit: Yes Code(s): E46 - Unspecified protein- calorie malnutrition (5) Obesity Status: Chronic Current Visit: Yes Code(s): E66.9 - Obesity, unspecified (6) Lower extremity edema Status: Chronic Current Visit: Yes Code(s): R60.0 - Localized edema (7) Diabetes mellitus with polyneuropathy Status: Chronic Current Visit: No Qualifiers: Diabetes mellitus type: type 2 Qualified Code(s): E11.42 - Type 2 diabetes mellitus with diabetic polyneuropathy Code(s): E11.42 - Type 2 diabetes mellitus with diabetic polyneuropathy (8) Osteomyelitis of foot Status: Resolved Current Visit: Yes Qualifiers: Laterality: right Code(s): M86.9 - Osteomyelitis, unspecified (9) Chronic ulcer of left foot with fat layer exposed Status: Chronic Current Visit: Yes Code(s): L97.522 - Non-pressure chronic ulcer of other part of left foot with fat layer exposed (10) Ulcer of right foot with fat layer exposed Status: Chronic Current Visit: Yes Code(s): L97.512 - Non-pressure chronic ulcer of other part of right foot with fat layer exposed Type of Wound Date of Service: 06/10/17 Chief Complaint: Right heel ulcer with delayed healing. 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 right leg ulcers new. left leg ulcer new. Right deep venous thrombosis-previously medically treated. Right lower extremity cellulitis resolved History of Wound: 62 year old male was seen for right heel ulcer with chronic osteomyelitis and for left foot delayed healing wound. His multiple new leg and foot ulcers noted today. He denies fever, chill, nausea, vomiting. He has started counseling sessions and nutrition counseling sessions as well. He has been improving his diet and relates his sugar has not gone over 105 the last week. His redness and swelling has significantly decreased since his most recent hospital admission. He has Regranex at home asks about proper use. He does not have help changing his dressings every day at this time time. Progress of Wound: stable. multiple new wounds - Physical Exam Vital Signs Temp Pulse Resp BP 98.4 F 75 18 168/74 H 06/10/17 10:24 06/10/17 10:24 06/10/17 10:24 06/10/17 10:24 General: Alert, Oriented x3, Cooperative Extremities: No cyanosis, Capillary Refill Less than 3 Seconds, No Calf Tenderness - Discomfort with right leg palpation. Bilateral lower extremity compartments soft to touch. Negative Keara sign bilateral, Diminished Peripheral Pulses, Edema Skin: Ulcer/ Wound - no purulence, no erythema, streaking, no odor, no exposed bone or tendon bilateral, - - Atrophic skin Wound Measurements and Assessment WC - Nurse 1 - General Ulcer Measurement Start: 05/27/17 14:55 Freq: Status: Active Protocol: Activity Type Activity Date Activity User E-Sign Co-Sign Detail Recorded Client Recorded Date Recorded By Document 06/10/17 10:24 [id number] 06/10/17 11:01 RB 06/10/17 10:24 Wound Center Nurse 1 [Ulcer Assessment] #11 LEFT ANKLE - POSTERIOR -Combined with other wound No -Current Size (cm) - Length 8 -Current Size (cm) - Width 1.3 -Current Size (cm) - Depth 0.2 -Total Square Cm 10.4 -Photo Taken No -Tunneling No -Undermining/Tunneling No -Circular Undermining No -Classification - Thickness Full Thickness without Exposed Support Structure -Exudate Amt Small (1-33%) -Exudate Type Serosanguineous -Wound Margin Distinct, Outline Attached -Granulation Amt Small (1-33%) -Granulation Quality [place] -Slough/Fibrin Yes -Necrosis Amt Large (67-100%) -Necrotic Tissue Type Adherent Slough -Structure Exposed N/A -Texture (Susy-wound Skin Appearance) Assessed -Moisture (Susy-wound Skin Appearance Assessed ) -Color (Susy-wound Skin Appearance) Assessed -Temperature (Susy-wound Skin No Abnormality Appearance) (Pt Warm) -Tenderness on Palpation (Susy-wound No Skin Appearance) -Ulcer Cleansing Rinsed/ Irrigated with Saline -Foul Odor after Cleansing No -Anesthetic Used 4% Lidocaine Solution #10 RIGHT ANKLE- ANTERIOR -Combined with other wound No -Current Size (cm) - Length 5.5 -Current Size (cm) - Width 9 -Current Size (cm) - Depth 0.1 -Total Square Cm 49.5 -Photo Taken No -Tunneling No -Undermining/Tunneling No -Circular Undermining No -Classification - Thickness Full Thickness without Exposed Support Structure -Exudate Amt Small (1-33%) -Exudate Type Serosanguineous -Wound Margin Distinct, Outline Attached -Granulation Amt Small (1-33%) -Granulation Quality [place] -Slough/Fibrin Yes -Necrosis Amt Large (67-100%) -Necrotic Tissue Type Adherent Slough -Structure Exposed N/A -Texture (Susy-wound Skin Appearance) Assessed -Moisture (Susy-wound Skin Appearance Assessed ) -Color (Susy-wound Skin Appearance) Assessed Erythema -Temperature (Susy-wound Skin No Abnormality Appearance) (Pt Warm) -Tenderness on Palpation (Susy-wound No Skin Appearance) -Ulcer Cleansing Rinsed/ Irrigated with Saline -Foul Odor after Cleansing No -Anesthetic Used 4% Lidocaine Solution 8-right cluster bernstein -Combined with other wound No -Current Size (cm) - Length 10 -Current Size (cm) - Width 5 -Current Size (cm) - Depth 0.1 -Total Square Cm 50 -Photo Taken No -Tunneling No -Undermining/Tunneling No -Circular Undermining No -Classification - Thickness Full Thickness without Exposed Support Structure -Exudate Amt Small (1-33%) -Exudate Type Serosanguineous -Wound Margin Distinct, Outline Attached -Granulation Amt Small (1-33%) -Granulation Quality [place] -Slough/Fibrin Yes -Necrosis Amt Large (67-100%) -Necrotic Tissue Type Adherent Slough -Structure Exposed N/A -Texture (Susy-wound Skin Appearance) Assessed -Moisture (Susy-wound Skin Appearance Assessed ) -Color (Susy-wound Skin Appearance) Assessed Erythema -Temperature (Susy-wound Skin No Abnormality Appearance) (Pt Warm) -Tenderness on Palpation (Susy-wound No Skin Appearance) -Ulcer Cleansing Rinsed/ Irrigated with Saline -Foul Odor after Cleansing No -Anesthetic Used 4% Lidocaine Solution #12 Right Posterior LE -Combined with other wound No -Current Size (cm) - Length 2.5 -Current Size (cm) - Width 1.3 -Current Size (cm) - Depth 0.2 -Total Square Cm 3.25 -Photo Taken No -Tunneling No -Undermining/Tunneling No -Circular Undermining No -Classification - Thickness Full Thickness without Exposed Support Structure -Exudate Amt Small (1-33%) -Exudate Type Serosanguineous -Wound Margin Distinct, Outline Attached -Granulation Amt Small (1-33%) -Granulation Quality [place] -Slough/Fibrin Yes -Necrosis Amt Large (67-100%) -Necrotic Tissue Type Adherent Slough -Structure Exposed N/A -Texture (Susy-wound Skin Appearance) Assessed -Moisture (Susy-wound Skin Appearance Assessed ) -Color (Susy-wound Skin Appearance) Erythema -Temperature (Susy-wound Skin No Abnormality Appearance) (Pt Warm) -Tenderness on Palpation (Susy-wound No Skin Appearance) -Ulcer Cleansing Rinsed/ Irrigated with Saline -Foul Odor after Cleansing No -Anesthetic Used 4% Lidocaine Solution #4 Left central TMA -Combined with other wound No -Current Size (cm) - Length 0.6 -Current Size (cm) - Width 0.3 -Current Size (cm) - Depth 0.1 -Total Square Cm 0.18 -Photo Taken No -Tunneling No -Undermining/Tunneling No -Circular Undermining No -Classification - Thickness Full Thickness without Exposed Support Structure -Exudate Amt Small (1-33%) -Exudate Type Serosanguineous -Wound Margin Distinct, Outline Attached -Granulation Amt Small (1-33%) -Granulation Quality [place] -Slough/Fibrin Yes -Necrosis Amt Large (67-100%) -Necrotic Tissue Type Adherent Slough -Structure Exposed N/A -Texture (Susy-wound Skin Appearance) Assessed -Moisture (Susy-wound Skin Appearance Dry/Scaly ) -Color (Susy-wound Skin Appearance) Assessed -Temperature (Susy-wound Skin No Abnormality Appearance) (Pt Warm) -Tenderness on Palpation (Susy-wound No Skin Appearance) -Ulcer Cleansing Rinsed/ Irrigated with Saline -Foul Odor after Cleansing No -Anesthetic Used 4% Lidocaine Solution #1 right medial heel -Combined with other wound No -Current Size (cm) - Length 0.6 -Current Size (cm) - Width 3.3 -Current Size (cm) - Depth 0.1 -Total Square Cm 1.98 -Photo Taken No -Tunneling No -Undermining/Tunneling No -Circular Undermining No -Classification - Thickness Full Thickness without Exposed Support Structure -Exudate Amt Small (1-33%) -Exudate Type Serosanguineous -Wound Margin Distinct, Outline Attached -Granulation Amt Small (1-33%) -Granulation Quality [place] -Slough/Fibrin Yes -Necrosis Amt Large (67-100%) -Necrotic Tissue Type Adherent Slough -Structure Exposed N/A -Texture (Susy-wound Skin Appearance) Assessed -Moisture (Susy-wound Skin Appearance Assessed ) -Color (Susy-wound Skin Appearance) Erythema -Temperature (Susy-wound Skin No Abnormality Appearance) (Pt Warm) -Tenderness on Palpation (Susy-wound No Skin Appearance) -Ulcer Cleansing Rinsed/ Irrigated with Saline -Foul Odor after Cleansing No -Anesthetic Used 4% Lidocaine Solution [Edema Assessment] -Lower Limb Edema Present Yes -Right Calf (cm) 51.5 -Right Ankle (cm) 31.5 -Left Calf (cm) 46.5 -Left Ankle (cm) 30.5 06/10/17 10:28 Wound Center by Karuna Charles pt in [facility] for [facility] from to thursday last week. Initialized on 06/10/17 10:28 - END OF NOTE Musculoskeletal: No Tenderness to Palpation of Joints or Extremities, Muscle Wasting, - - Left transmetatarsal amputation site Neurological: - - Lack of epicritic sensation light touch bilateral Psych/Mental Status: Normal Affect, Appropriate Debridement Note Post-Debridement Measurements/Treatment WC - Nurse 2 - General Ulcer CM Notes Start: 05/27/17 14:55 Freq: Status: Active Protocol: Activity Type Activity Date Activity User E-Sign Co-Sign Detail Recorded Client Recorded Date Recorded By Document 05/27/17 15:35 [id number] 05/27/17 15:55 Document 06/03/17 16:18 TM [id number] 06/03/17 16:22 TM 05/27/17 06/03/17 15:35 16:18 Wound Center Nurse 2 #11 LEFT ANKLE - POSTERIOR -Time 16:18 -Correct Patient Yes -Correct Side, Site, Position Yes -Correct Procedure Yes -Procedure Performed Yes -Type of Procedure Debridement -Clinical Debridement Subcutaneous -Post Debridement Size (cm) - Length 2.6 -Post Debridement Size (cm) - Width 1.1 -Post Debridement Size (cm) - Depth 0.1 -Total Square Cm 2.86 -Wound/Ulcer Outcome Not Healed -Ulcer Cleansing Rinsed/ Irrigated with Saline -Foul Odor after Cleansing No -Bioengineered Tissue No -Topical Lidocaine (%) 4 -Bleeding Controlled with Pressure -Treatment Response Procedure Tolerated Well #10 RIGHT ANKLE- ANTERIOR -Time 16:19 -Correct Patient Yes -Correct Side, Site, Position Yes -Correct Procedure Yes -Procedure Performed Yes -Type of Procedure Debridement -Clinical Debridement Subcutaneous -Post Debridement Size (cm) - Length 3.9 -Post Debridement Size (cm) - Width 5.1 -Post Debridement Size (cm) - Depth 0.1 -Total Square Cm 19.89 -Wound/Ulcer Outcome Not Healed -Ulcer Cleansing Rinsed/ Irrigated with Saline -Foul Odor after Cleansing No -Bioengineered Tissue No -Topical Lidocaine (%) 4 -Bleeding Controlled with Pressure -Treatment Response Procedure Tolerated Well 8-right cluster bernstein -Time 15:36 16:19 -Correct Patient Yes Yes -Correct Side, Site, Position Yes Yes -Correct Procedure Yes Yes -Procedure Performed Yes Yes -Type of Procedure Debridement Debridement -Clinical Debridement Subcutaneous Subcutaneous -Post Debridement Size (cm) - Length 3 14.1 -Post Debridement Size (cm) - Width 2.8 5.1 -Post Debridement Size (cm) - Depth 0.1 0.1 -Total Square Cm 8.4 71.91 -Wound/Ulcer Outcome Not Healed Not Healed -Ulcer Cleansing Rinsed/ Rinsed/ Irrigated with Irrigated with Saline Saline -Foul Odor after Cleansing No No -Bioengineered Tissue Yes No -Type of bioengineered Tissue [id number] -Expiration Date 01/22/19 -Product Lot Number [id number] -Percent Used 100 -Saline Lot Number [id number] -Topical Lidocaine (%) 4 -Bleeding Controlled with Pressure Pressure -Treatment Response Procedure Procedure Tolerated Well Tolerated Well #12 Right Posterior LE -Time 16:22 -Correct Patient Yes -Correct Side, Site, Position Yes -Correct Procedure Yes -Procedure Performed Yes -Type of Procedure Debridement -Clinical Debridement Subcutaneous -Post Debridement Size (cm) - Length 2.5 -Post Debridement Size (cm) - Width 2.0 -Post Debridement Size (cm) - Depth 0.1 -Total Square Cm 5.00 -Wound/Ulcer Outcome Not Healed -Ulcer Cleansing Rinsed/ Irrigated with Saline -Foul Odor after Cleansing No -Bioengineered Tissue No -Topical Lidocaine (%) 4 -Bleeding Controlled with Pressure -Treatment Response Procedure Tolerated Well #4 Left central TMA -Time 15:36 16:20 -Correct Patient Yes Yes -Correct Side, Site, Position Yes Yes -Correct Procedure Yes Yes -Procedure Performed Yes Yes -Type of Procedure Debridement Debridement -Clinical Debridement Subcutaneous Subcutaneous -Post Debridement Size (cm) - Length 0.5 1.0 -Post Debridement Size (cm) - Width 0.4 0.4 -Post Debridement Size (cm) - Depth 0.3 0.2 -Total Square Cm 0.20 0.40 -Wound/Ulcer Outcome Not Healed Not Healed -Ulcer Cleansing Rinsed/ Rinsed/ Irrigated with Irrigated with Saline Saline -Foul Odor after Cleansing No No -Bioengineered Tissue Yes No -Type of bioengineered Tissue [id number] -Expiration Date 01/22/19 -Product Lot Number [id number] -Percent Used 100 -Saline Lot Number [id number] -Topical Lidocaine (%) 4 -Bleeding Controlled with Pressure Pressure -Treatment Response Procedure Procedure Tolerated Well Tolerated Well #1 right medial heel -Time 15:37 16:20 -Correct Patient Yes Yes -Correct Side, Site, Position Yes Yes -Correct Procedure Yes Yes -Procedure Performed Yes Yes -Type of Procedure Debridement Debridement -Clinical Debridement Subcutaneous Subcutaneous -Post Debridement Size (cm) - Length 4 1.1 -Post Debridement Size (cm) - Width 1.3 4.1 -Post Debridement Size (cm) - Depth 0.3 0.2 -Total Square Cm 5.2 4.51 -Wound/Ulcer Outcome Not Healed Not Healed -Ulcer Cleansing Rinsed/ Rinsed/ Irrigated with Irrigated with Saline Saline -Foul Odor after Cleansing No No -Bioengineered Tissue Yes No -Type of bioengineered Tissue [id number] -Expiration Date 01/22/19 -Product Lot Number [id number] -Percent Used 100 -Saline Lot Number [id number] -Topical Lidocaine (%) 4 -Bleeding Controlled with Pressure Pressure -Treatment Response Procedure Procedure Tolerated Well Tolerated Well Pain Scale: 0-10 Numeric Is Patient Pain Free? Yes Yes Wound debrided: foot stump site Laterality: Left Wound Grade/Stage: grade 1 Type of Debridement: Excisional debridement Anesthesia Used: 4% Lidocaine Solution Depth: in the subcutaneous layer Percentage of wound debrided: 100 Instrument Used: #15 blade Tissue Removed: fibrous, devitalized subcutaneous, biofilm, slough Severity: Fat Layer Exposed Amount of bleeding with debridement: Mild Bleeding Controlled with: Pressure Patient tolerated procedure well - Additional Wound Wound debrided: heel Laterality: Right Wound Grade/Stage: grade 3 Type of Debridement: Excisional debridement Anesthesia Used: 4% Lidocaine Solution Depth: in the subcutaneous layer Percentage of wound debrided: 100 Instrument Used: #15 blade Tissue Removed: fibrous, devitalized subcutaneous, biofilm, slough Severity: Fat Layer Exposed Amount of bleeding with debridement: Mild Bleeding Controlled with: Pressure Patient tolerated procedure: Patient tolerated procedure well - Additional Wound Wound debrided: anterior ankle/dorsal foot Laterality: Right Wound Grade/Stage: grade 1 Type of Debridement: Excisional debridement Anesthesia Used: 4% Lidocaine Solution Depth: in the subcutaneous layer Percentage of wound debrided: 100 Instrument Used: #15 blade Tissue Removed: fibrous, devitalized subcutaneous, biofilm, slough Severity: Fat Layer Exposed Amount of bleeding with debridement: Mild Bleeding Controlled with: Pressure Patient tolerated procedure: Patient tolerated procedure well - Additional Wound Wound debrided: leg Laterality: Right Wound Grade/Stage: grade 1 Type of Debridement: Excisional debridement Anesthesia Used: 4% Lidocaine Solution Depth: in the subcutaneous layer Percentage of wound debrided: 100 Instrument Used: #15 blade Tissue Removed: fibrous, devitalized subcutaneous, biofilm, slough Severity: Fat Layer Exposed Amount of bleeding with debridement: Mild Bleeding Controlled with: Pressure Patient tolerated procedure: Patient tolerated procedure well - Additional Wound Wound debrided: posterior ankle Laterality: Left Wound Grade/Stage: grade 1 Type of Debridement: Excisional debridement Anesthesia Used: 4% Lidocaine Solution Depth: in the subcutaneous layer Percentage of wound debrided: 100 Instrument Used: #15 blade Tissue Removed: fibrous, devitalized subcutaneous, biofilm, slough Severity: Fat Layer Exposed Amount of bleeding with debridement: Mild Bleeding Controlled with: Pressure Patient tolerated procedure: Patient tolerated procedure well Assessment/Plan Active Problems Ulcer of left lower extremity with fat layer exposed (Chronic) Chronic ulcer of left foot with fat layer exposed (Chronic) Ulcer of right foot with fat layer exposed (Chronic) Ulcer of right lower extremity with fat layer exposed (Chronic) Type 2 diabetes mellitus with diabetic polyneuropathy (Chronic) Malnutrition (Chronic) Obesity (Chronic) Lower extremity edema (Chronic) Assessment: right leg ulcers with fat layer exposed, stable. Left leg ulcers with fat layer exposed, stable. right dorsal foot ulcer, stable and resolved cellulitis. right diabetic heel ulcer with fat exposed and medically treated for previous osteomyelitis. left chronic foot ulcer with fat layer exposed. s/ p left transmetatarsal amputation with complex closure and percutaneous achilles tendon lengthening performed on 08/05/2016. This was performed secondary to abscess/septic joint/left foot infected ulceration - dehisced and ulcer now central and lateral (considered grade 1). edema/venous insufficiency. diabetic neuropathy. delayed healing / malnutrition. obesity. non compliance. History of recent blood clot right lower extremity treated medically during hospital admission Plan: I discussed his case and treatment plan. Subcutaneous excisional debridement to all bilateral ulcer sites performed today as noted in the clinical panel. It is noted he completed a full course of advanced wound care product, epifix,application. To apply fibricol to the ulcer sites and continue regranex to the right heel and left transmetatarsal amputation site 12 hours at a time when he is able to coordinate this with home health or family assistance. Verbal consent was obtained for application of pure apply, antimicrobial collagen dressing. This is applied according to standard protocol and secured in place with a wound veil and Steri-Strips. The product was applied to the right heel right foot and left leg. To keep the dressing clean dry and intact until follow-up visit next week. Wound veil's were applied to the other open superficial wounds of the leg. . To maintain improved skin integrity by applying lac hydrin lotion to both legs daily. Continue circaid wraps bilateral legs daily; it is okay to apply tubigrip prior to application of CircAid foot wrap to better keep his wound dressings in place. To avoid over I do not see any signs of systemic illness or overt clinical signs of infection. To complete antibiotic course advised during his recent hospital admission. To continue diuretic medications per primary care physician.To elevate legs at rest. Compliance is imperative and this was discussed again today. To continue with portion control for weight loss and proper glycemic control and nutritional supplementation to optimize healing. His hemoglobin A1c went from 9.0 to 7.4. he takes a whey protein-based supplement at home and he was advised to continue in addition to a well- balanced nutritious diet. All of his questions were answered. He understands he is still at risk for limb loss. Due to the chronicity of the left lower extremity as well I recommend an updated left foot x-ray. Orders are provided. To follow-up at the wound care center in 1 week or call sooner if he has any questions or concerns.
== END 2017-06-13 23:59 ==
LOC: WC 08:45
PROVIDERS: Family Provider Family Medicine; PCP Family Medicine; Visit Provider Podiatrist
DX: E11.622 Type 2 diabetes mellitus with other skin ulcer (principal); E11.42 Type 2 diabetes mellitus with diabetic polyneuropathy; R60.0 Localized edema; Z91.19 Patient's noncompliance with other medical treatment and regimen; E11.621 Type 2 diabetes mellitus with foot ulcer; L97.522 Non-pressure chronic ulcer of other part of left foot with fat layer exposed; L97.412 Non-pressure chronic ulcer of right heel and midfoot with fat layer exposed; L97.812 Non-pressure chronic ulcer of other part of right lower leg with fat layer exposed; E66.9 Obesity, unspecified; Z68.33 Body mass index [BMI] 33.0-33.9, adult; Z71.3 Dietary counseling and surveillance; Z89.432 Acquired absence of left foot
CPT/HCPCS: 11042; 11045; 15271; 15275; Q4172

== ENCOUNTER → 2017-06-23 13:15 | Outpatient (CLI) | payer MEDICARE, MEDICAID, SELFPAY ==
--- NOTE | 2017-06-23 13:18 | RAD_ITS ---
STUDY: X-RAY - LEFT FOOT CLINICAL: Male, 62 years old. Ulcer. TECHNIQUE: 3 view(s) of the foot. COMPARISON: 08/05/2016. FINDINGS: Stable appearance of forefoot amputation through the mid shafts of the metatarsals. No definite focal destructive lesions are seen but this does not exclude osteomyelitis. No gross soft tissue gas is seen. Prominent degenerative changes of the midfoot. RAD/Foot min 3 Views IMPRESSION: No definite destructive process of the bones but this does not exclude osteomyelitis. Electronically Signed: Harinder Hampton MD at 19:28 EDT , Service support ,
== END ==
PROVIDERS: Family Provider Family Medicine; PCP Family Medicine; Visit Provider Podiatrist
DX: L97.529 Non-pressure chronic ulcer of other part of left foot with unspecified severity (principal); M86.9 Osteomyelitis, unspecified
CPT/HCPCS: 73630

== ENCOUNTER 2017-07-08 14:30 | Outpatient (RCR) | payer MEDICARE, MEDICAID, SELFPAY ==
[2017-06-14 00:27] VITALS: BP 190/84; PULSE 75; RESP 18; TEMP 36.9
[2017-06-24 14:22] VITALS: BP 132/66; PULSE 74; RESP 18; TEMP 36.6
--- NOTE | 2017-06-24 17:16 | PCM.WC.PN ---
(1) Ulcer of right lower extremity with fat layer exposed Status: Chronic Current Visit: Yes Code(s): L97.912 - Non-pressure chronic ulcer of unspecified part of right lower leg with fat layer exposed (2) Type 2 diabetes mellitus with diabetic polyneuropathy Status: Chronic Current Visit: Yes Code(s): E11.42 - Type 2 diabetes mellitus with diabetic polyneuropathy (3) Ulcer of left lower extremity with fat layer exposed Status: Chronic Current Visit: Yes Code(s): L97.922 - Non-pressure chronic ulcer of unspecified part of left lower leg with fat layer exposed (4) Malnutrition Status: Chronic Current Visit: Yes Code(s): E46 - Unspecified protein-calorie malnutrition (5) Lower extremity edema Status: Chronic Current Visit: Yes Code(s): R60.0 - Localized edema (6) Edema, lower extremity Status: Chronic Current Visit: Yes Code(s): R60.0 - Localized edema Type of Wound Date of Service: 06/24/17 Chief Complaint: Right heel ulcer with delayed healing. 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 right leg ulcers new. Right deep venous thrombosis-previously medically treated History of Wound: 62 year old male was seen for right heel ulcer with chronic osteomyelitis and for left foot delayed healing wound. His multiple newre leg and foot ulcers are noted. He denies fever, chill, nausea, vomiting. He has started counseling sessions and nutrition counseling sessions as well. He missed his last wound center appointment due to transportation issues. He has Regranex at home asks about proper use. He does not have help changing his dressings every day at this time time. Home health is been helping when they can. Progress of Wound: stable - Physical Exam Vital Signs Temp Pulse Resp BP 97.8 F 74 18 132/66 H 06/24/17 14:22 06/24/17 14:22 06/24/17 14:22 06/24/17 14:22 General: Alert, Oriented x3, Cooperative Extremities: No cyanosis, Capillary Refill Less than 3 Seconds, No Calf Tenderness - Negative [place] and Simmons bilateral, Diminished Peripheral Pulses, Edema - Bilateral lower extremities Skin: Ulcer/ Wound - No purulence, no erythema, no streaking, no odor, no infection, no exposed bone or tendon bilateral, - - There is increased granulation tissue to the left foot and to the right heel. Wound Measurements and Assessment WC - Nurse 1 - General Ulcer Measurement Start: 06/22/17 06:09 Freq: Status: Active Protocol: Activity Type Activity Date Activity User E-Sign Co-Sign Detail Recorded Client Recorded Date Recorded By Document 06/24/17 14:22 NORRIS [id number] 06/24/17 14:43 NORRIS 06/24/17 14:22 Wound Center Nurse 1 [Ulcer Assessment] #11 LEFT ANKLE - POSTERIOR -Combined with other wound No -Current Size (cm) - Length 7 -Current Size (cm) - Width 0.7 -Current Size (cm) - Depth 0.1 -Total Square Cm 4.9 -Photo Taken Yes -Epithelialization Small 1-33% -Tunneling No -Undermining/Tunneling No -Exudate Amt Small (1-33%) -Exudate Type Serosanguineous -Wound Margin Flat & Intact -Granulation Amt Small (1-33%) -Granulation Quality Red -Slough/Fibrin Yes -Necrosis Amt Medium (34-66%) -Necrotic Tissue Type Adherent Slough -Structure Exposed N/A -Texture (Susy-wound Skin Appearance) Assessed Localized Edema -Moisture (Susy-wound Skin Appearance Assessed ) Dry/Scaly -Color (Susy-wound Skin Appearance) Assessed -Temperature (Susy-wound Skin No Abnormality Appearance) (Pt Warm) -Tenderness on Palpation (Susy-wound No Skin Appearance) -Ulcer Cleansing Wound Cleanser -Foul Odor after Cleansing No -Anesthetic Used 4% Lidocaine Solution #10 RIGHT ANKLE- ANTERIOR -Combined with other wound No -Current Size (cm) - Length 5.1 -Current Size (cm) - Width 6.8 -Current Size (cm) - Depth 0.2 -Total Square Cm 34.68 -Photo Taken Yes -Epithelialization None Present -Tunneling No -Undermining/Tunneling No -Circular Undermining No -Exudate Amt Small (1-33%) -Exudate Type Serosanguineous -Wound Margin Flat & Intact -Granulation Amt Small (1-33%) -Granulation Quality Red -Slough/Fibrin Yes -Necrosis Amt Large (67-100%) -Necrotic Tissue Type Adherent Slough -Structure Exposed N/A -Texture (Susy-wound Skin Appearance) Assessed Localized Edema -Moisture (Susy-wound Skin Appearance Assessed ) Dry/Scaly -Color (Susy-wound Skin Appearance) Assessed -Temperature (Susy-wound Skin No Abnormality Appearance) (Pt Warm) -Tenderness on Palpation (Susy-wound No Skin Appearance) -Ulcer Cleansing Wound Cleanser -Foul Odor after Cleansing No -Anesthetic Used 4% Lidocaine Solution 8-right cluster bernstein -Combined with other wound No -Current Size (cm) - Length 8.5 -Current Size (cm) - Width 6 -Current Size (cm) - Depth 0.1 -Total Square Cm 51.0 -Photo Taken Yes -Epithelialization None Present -Tunneling No -Undermining/Tunneling No -Circular Undermining No -Exudate Amt Large (67-100%) -Exudate Type Serosanguineous -Wound Margin Flat & Intact -Granulation Amt Small (1-33%) -Granulation Quality Red -Slough/Fibrin Yes -Necrosis Amt Large (67-100%) -Necrotic Tissue Type Adherent Slough -Structure Exposed N/A -Texture (Susy-wound Skin Appearance) Assessed Induration -Moisture (Susy-wound Skin Appearance Assessed ) Maceration -Color (Susy-wound Skin Appearance) Assessed Hemosiderin Staining -Temperature (Susy-wound Skin No Abnormality Appearance) (Pt Warm) -Tenderness on Palpation (Susy-wound No Skin Appearance) -Ulcer Cleansing Wound Cleanser -Foul Odor after Cleansing No -Anesthetic Used 4% Lidocaine Solution #12 Right Posterior LE -Combined with other wound No -Current Size (cm) - Length 2.4 -Current Size (cm) - Width 0.6 -Current Size (cm) - Depth 0.1 -Total Square Cm 1.44 -Photo Taken Yes -Epithelialization Small 1-33% -Tunneling No -Undermining/Tunneling No -Circular Undermining No -Exudate Amt Small (1-33%) -Exudate Type Serosanguineous -Wound Margin Flat & Intact -Granulation Amt Small (1-33%) -Granulation Quality Pale [place] -Slough/Fibrin Yes -Necrosis Amt Medium (34-66%) -Necrotic Tissue Type Adherent Slough -Structure Exposed N/A -Texture (Susy-wound Skin Appearance) Assessed Localized Edema -Moisture (Susy-wound Skin Appearance Assessed ) Dry/Scaly -Color (Susy-wound Skin Appearance) Assessed Hemosiderin Staining -Temperature (Susy-wound Skin No Abnormality Appearance) (Pt Warm) -Tenderness on Palpation (Susy-wound No Skin Appearance) -Ulcer Cleansing Wound Cleanser -Foul Odor after Cleansing No -Anesthetic Used 4% Lidocaine Solution #4 Left central TMA -Combined with other wound No -Current Size (cm) - Length 0.9 -Current Size (cm) - Width 0.4 -Current Size (cm) - Depth 0.2 -Total Square Cm 0.36 -Photo Taken Yes -Epithelialization Small 1-33% -Tunneling No -Undermining/Tunneling No -Circular Undermining No -Exudate Amt Small (1-33%) -Exudate Type Serosanguineous -Wound Margin Flat & Intact -Granulation Amt Medium (34-66%) -Granulation Quality [place] -Slough/Fibrin Yes -Necrosis Amt Small (1-33%) -Necrotic Tissue Type Adherent Slough -Structure Exposed N/A -Texture (Susy-wound Skin Appearance) Assessed Localized Edema -Moisture (Susy-wound Skin Appearance Assessed ) Dry/Scaly -Color (Susy-wound Skin Appearance) Assessed -Temperature (Susy-wound Skin No Abnormality Appearance) (Pt Warm) -Tenderness on Palpation (Susy-wound No Skin Appearance) -Ulcer Cleansing Wound Cleanser -Foul Odor after Cleansing No -Anesthetic Used 4% Lidocaine Solution #1 right medial heel -Combined with other wound No -Current Size (cm) - Length 0.8 -Current Size (cm) - Width 2.6 -Current Size (cm) - Depth 0.1 -Total Square Cm 2.08 -Photo Taken Yes -Epithelialization Small 1-33% -Tunneling No -Undermining/Tunneling No -Circular Undermining No -Exudate Amt Small (1-33%) -Exudate Type Serosanguineous -Wound Margin Flat & Intact -Granulation Amt Medium (34-66%) -Granulation Quality [place] -Slough/Fibrin Yes -Necrosis Amt Medium (34-66%) -Necrotic Tissue Type Adherent Slough -Structure Exposed N/A -Texture (Susy-wound Skin Appearance) Assessed Localized Edema Scarring -Moisture (Susy-wound Skin Appearance Assessed ) Dry/Scaly -Color (Susy-wound Skin Appearance) Assessed -Temperature (Susy-wound Skin No Abnormality Appearance) (Pt Warm) -Tenderness on Palpation (Susy-wound No Skin Appearance) -Ulcer Cleansing Wound Cleanser -Foul Odor after Cleansing No -Anesthetic Used 4% Lidocaine Solution [Edema Assessment] -Lower Limb Edema Present Yes -Right Calf (cm) 52.4 -Right Ankle (cm) 28.3 -Left Calf (cm) 47.7 -Left Ankle (cm) 29.0 WC - Nurse 2 - General Ulcer CM Notes Start: 06/22/17 06:09 Freq: Status: Active Protocol: Activity Type Activity Date Activity User E-Sign Co-Sign Detail Recorded Client Recorded Date Recorded By Document 06/24/17 15:26 [id number] 06/24/17 15:29 06/24/17 15:26 Wound Center Nurse 2 [Procedure/Treatment] #11 LEFT ANKLE - POSTERIOR -Time 15:26 -Correct Patient Yes -Correct Side, Site, Position Yes -Correct Procedure Yes -Procedure Performed Yes -Type of Procedure Debridement -Clinical Debridement Subcutaneous -Post Debridement Size (cm) - Length 7.1 -Post Debridement Size (cm) - Width 0.8 -Post Debridement Size (cm) - Depth 0.1 -Total Square Cm 5.68 -Wound/Ulcer Outcome Not Healed -Ulcer Cleansing Rinsed/ Irrigated with Saline -Foul Odor after Cleansing No -Bioengineered Tissue No -Topical Lidocaine (%) 4 -Bleeding Controlled with Pressure -Treatment Response Procedure Tolerated Well #10 RIGHT ANKLE- ANTERIOR -Time 15:27 -Correct Patient Yes -Correct Side, Site, Position Yes -Correct Procedure Yes -Procedure Performed Yes -Type of Procedure Debridement -Clinical Debridement Subcutaneous -Post Debridement Size (cm) - Length 5.2 -Post Debridement Size (cm) - Width 6.9 -Post Debridement Size (cm) - Depth 0.2 -Total Square Cm 35.88 -Wound/Ulcer Outcome Not Healed -Ulcer Cleansing Rinsed/ Irrigated with Saline -Foul Odor after Cleansing No -Bioengineered Tissue No -Topical Lidocaine (%) 4 -Bleeding Controlled with Pressure -Treatment Response Procedure Tolerated Well 8-right cluster bernstein -Time 15:27 -Correct Patient Yes -Correct Side, Site, Position Yes -Correct Procedure Yes -Procedure Performed Yes -Type of Procedure Debridement -Clinical Debridement Subcutaneous -Post Debridement Size (cm) - Length 8.6 -Post Debridement Size (cm) - Width 6.1 -Post Debridement Size (cm) - Depth 0.1 -Total Square Cm 52.46 -Wound/Ulcer Outcome Not Healed -Ulcer Cleansing Rinsed/ Irrigated with Saline -Foul Odor after Cleansing No -Bioengineered Tissue No -Topical Lidocaine (%) 4 -Bleeding Controlled with Pressure -Treatment Response Procedure Tolerated Well #12 Right Posterior LE -Time 15:28 -Correct Patient Yes -Correct Side, Site, Position Yes -Correct Procedure Yes -Procedure Performed Yes -Type of Procedure Debridement -Clinical Debridement Subcutaneous -Post Debridement Size (cm) - Length 2.5 -Post Debridement Size (cm) - Width 0.7 -Post Debridement Size (cm) - Depth 0.1 -Total Square Cm 1.75 -Wound/Ulcer Outcome Not Healed -Ulcer Cleansing Rinsed/ Irrigated with Saline -Foul Odor after Cleansing No -Bioengineered Tissue No -Topical Lidocaine (%) 4 -Bleeding Controlled with Pressure -Treatment Response Procedure Tolerated Well #4 Left central TMA -Time 15:28 -Correct Patient Yes -Correct Side, Site, Position Yes -Correct Procedure Yes -Procedure Performed Yes -Type of Procedure Debridement -Clinical Debridement Subcutaneous -Post Debridement Size (cm) - Length 1.0 -Post Debridement Size (cm) - Width 0.5 -Post Debridement Size (cm) - Depth 0.2 -Total Square Cm 0.50 -Wound/Ulcer Outcome Not Healed -Ulcer Cleansing Rinsed/ Irrigated with Saline -Foul Odor after Cleansing No -Bioengineered Tissue No -Topical Lidocaine (%) 4 -Bleeding Controlled with Pressure -Treatment Response Procedure Tolerated Well #1 right medial heel -Time 15:28 -Correct Patient Yes -Correct Side, Site, Position Yes -Correct Procedure Yes -Procedure Performed Yes -Type of Procedure Debridement -Clinical Debridement Subcutaneous -Post Debridement Size (cm) - Length 0.9 -Post Debridement Size (cm) - Width 2.7 -Post Debridement Size (cm) - Depth 0.1 -Total Square Cm 2.43 -Wound/Ulcer Outcome Not Healed -Ulcer Cleansing Rinsed/ Irrigated with Saline -Foul Odor after Cleansing No -Bioengineered Tissue No -Topical Lidocaine (%) 4 -Bleeding Controlled with Pressure -Treatment Response Procedure Tolerated Well [See Physician Procedure note for Specifics] Pain Scale: 0-10 Numeric [Pain] -Is Patient Pain Free? Yes Musculoskeletal: No Tenderness to Palpation of Joints or Extremities, Muscle Wasting, - - Left transmetatarsal amputation. Compartment soft on palpation bilateral lower extremities Neurological: - - Lack of epicritic sensation light touch bilateral lower extremities Psych/Mental Status: Normal Affect, Appropriate Debridement Note Post-Debridement Measurements/Treatment WC - Nurse 2 - General Ulcer CM Notes Start: 06/22/17 06:09 Freq: Status: Active Protocol: Activity Type Activity Date Activity User E-Sign Co-Sign Detail Recorded Client Recorded Date Recorded By Document 06/24/17 15:26 [id number] 06/24/17 15:29 06/24/17 15:26 Wound Center Nurse 2 #11 LEFT ANKLE - POSTERIOR -Time 15:26 -Correct Patient Yes -Correct Side, Site, Position Yes -Correct Procedure Yes -Procedure Performed Yes -Type of Procedure Debridement -Clinical Debridement Subcutaneous -Post Debridement Size (cm) - Length 7.1 -Post Debridement Size (cm) - Width 0.8 -Post Debridement Size (cm) - Depth 0.1 -Total Square Cm 5.68 -Wound/Ulcer Outcome Not Healed -Ulcer Cleansing Rinsed/ Irrigated with Saline -Foul Odor after Cleansing No -Bioengineered Tissue No -Topical Lidocaine (%) 4 -Bleeding Controlled with Pressure -Treatment Response Procedure Tolerated Well #10 RIGHT ANKLE- ANTERIOR -Time 15:27 -Correct Patient Yes -Correct Side, Site, Position Yes -Correct Procedure Yes -Procedure Performed Yes -Type of Procedure Debridement -Clinical Debridement Subcutaneous -Post Debridement Size (cm) - Length 5.2 -Post Debridement Size (cm) - Width 6.9 -Post Debridement Size (cm) - Depth 0.2 -Total Square Cm 35.88 -Wound/Ulcer Outcome Not Healed -Ulcer Cleansing Rinsed/ Irrigated with Saline -Foul Odor after Cleansing No -Bioengineered Tissue No -Topical Lidocaine (%) 4 -Bleeding Controlled with Pressure -Treatment Response Procedure Tolerated Well 8-right cluster bernstein -Time 15:27 -Correct Patient Yes -Correct Side, Site, Position Yes -Correct Procedure Yes -Procedure Performed Yes -Type of Procedure Debridement -Clinical Debridement Subcutaneous -Post Debridement Size (cm) - Length 8.6 -Post Debridement Size (cm) - Width 6.1 -Post Debridement Size (cm) - Depth 0.1 -Total Square Cm 52.46 -Wound/Ulcer Outcome Not Healed -Ulcer Cleansing Rinsed/ Irrigated with Saline -Foul Odor after Cleansing No -Bioengineered Tissue No -Topical Lidocaine (%) 4 -Bleeding Controlled with Pressure -Treatment Response Procedure Tolerated Well #12 Right Posterior LE -Time 15:28 -Correct Patient Yes -Correct Side, Site, Position Yes -Correct Procedure Yes -Procedure Performed Yes -Type of Procedure Debridement -Clinical Debridement Subcutaneous -Post Debridement Size (cm) - Length 2.5 -Post Debridement Size (cm) - Width 0.7 -Post Debridement Size (cm) - Depth 0.1 -Total Square Cm 1.75 -Wound/Ulcer Outcome Not Healed -Ulcer Cleansing Rinsed/ Irrigated with Saline -Foul Odor after Cleansing No -Bioengineered Tissue No -Topical Lidocaine (%) 4 -Bleeding Controlled with Pressure -Treatment Response Procedure Tolerated Well #4 Left central TMA -Time 15:28 -Correct Patient Yes -Correct Side, Site, Position Yes -Correct Procedure Yes -Procedure Performed Yes -Type of Procedure Debridement -Clinical Debridement Subcutaneous -Post Debridement Size (cm) - Length 1.0 -Post Debridement Size (cm) - Width 0.5 -Post Debridement Size (cm) - Depth 0.2 -Total Square Cm 0.50 -Wound/Ulcer Outcome Not Healed -Ulcer Cleansing Rinsed/ Irrigated with Saline -Foul Odor after Cleansing No -Bioengineered Tissue No -Topical Lidocaine (%) 4 -Bleeding Controlled with Pressure -Treatment Response Procedure Tolerated Well #1 right medial heel -Time 15:28 -Correct Patient Yes -Correct Side, Site, Position Yes -Correct Procedure Yes -Procedure Performed Yes -Type of Procedure Debridement -Clinical Debridement Subcutaneous -Post Debridement Size (cm) - Length 0.9 -Post Debridement Size (cm) - Width 2.7 -Post Debridement Size (cm) - Depth 0.1 -Total Square Cm 2.43 -Wound/Ulcer Outcome Not Healed -Ulcer Cleansing Rinsed/ Irrigated with Saline -Foul Odor after Cleansing No -Bioengineered Tissue No -Topical Lidocaine (%) 4 -Bleeding Controlled with Pressure -Treatment Response Procedure Tolerated Well Pain Scale: 0-10 Numeric Is Patient Pain Free? Yes Wound debrided: plantar heel Laterality: Right Wound Grade/Stage: grade 3 Type of Debridement: Excisional debridement Anesthesia Used: 4% Lidocaine Solution Depth: in the subcutaneous layer Percentage of wound debrided: 100 Instrument Used: #15 blade Tissue Removed: fibrous, devitalized subcutaneous, biofilm, slough Severity: Fat Layer Exposed Amount of bleeding with debridement: Mild Bleeding Controlled with: Pressure Patient tolerated procedure well - Additional Wound Wound debrided: dorsal foot Laterality: Right Wound Grade/Stage: grade 1 Type of Debridement: Excisional debridement Anesthesia Used: 4% Lidocaine Solution Depth: in the subcutaneous layer Percentage of wound debrided: 100 Instrument Used: #15 blade Tissue Removed: fibrous, devitalized subcutaneous, biofilm, slough Severity: Fat Layer Exposed Amount of bleeding with debridement: Mild Bleeding Controlled with: Pressure Patient tolerated procedure: Patient tolerated procedure well - Additional Wound Wound debrided: leg posterior Laterality: Right Wound Grade/Stage: grade 1 Anesthesia Used: 4% Lidocaine Solution Depth: in the subcutaneous layer Percentage of wound debrided: 100 Instrument Used: #15 blade Tissue Removed: fibrous, devitalized subcutaneous, biofilm, slough Severity: Fat Layer Exposed Amount of bleeding with debridement: Mild Bleeding Controlled with: Pressure Patient tolerated procedure: Patient tolerated procedure well - Additional Wound Wound debrided: distal foot stump Laterality: Left Wound Grade/Stage: grade 1 Type of Debridement: Excisional debridement Anesthesia Used: 4% Lidocaine Solution Depth: in the subcutaneous layer Percentage of wound debrided: 100 Instrument Used: #15 blade Tissue Removed: fibrous, devitalized subcutaneous, biofilm, slough Severity: Fat Layer Exposed Amount of bleeding with debridement: Mild Bleeding Controlled with: Pressure Patient tolerated procedure: Patient tolerated procedure well - Additional Wound Wound debrided: leg anterior Laterality: Right Wound Grade/Stage: grade 1 Type of Debridement: Excisional debridement Anesthesia Used: 4% Lidocaine Solution Depth: in the subcutaneous layer Percentage of wound debrided: 100 Instrument Used: #15 blade Tissue Removed: fibrous, devitalized subcutaneous, biofilm, slough Severity: Fat Layer Exposed Amount of bleeding with debridement: Mild Bleeding Controlled with: Pressure Patient tolerated procedure: Patient tolerated procedure well - Additional Wound Wound debrided: leg posterior Laterality: Left Wound Grade/Stage: grade 1 Type of Debridement: Excisional debridement Anesthesia Used: 4% Lidocaine Solution Depth: in the subcutaneous layer Percentage of wound debrided: 100 Instrument Used: #15 blade Tissue Removed: fibrous, devitalized subcutaneous, biofilm, slough Severity: Fat Layer Exposed Amount of bleeding with debridement: Mild Bleeding Controlled with: Pressure Patient tolerated procedure: Patient tolerated procedure well Assessment/Plan Active Problems Type 2 diabetes mellitus with diabetic polyneuropathy (Chronic) Ulcer of right lower extremity with fat layer exposed (Chronic) Ulcer of left lower extremity with fat layer exposed (Chronic) Malnutrition (Chronic) Lower extremity edema (Chronic) Edema, lower extremity (Chronic) Assessment: right leg ulcers with fat layer exposed, stable. Left leg ulcers with fat layer exposed, stable. right dorsal foot ulcer, stable. right diabetic heel ulcer with fat exposed and medically treated for previous osteomyelitis. left chronic foot ulcer with fat layer exposed. s/p left transmetatarsal amputation with complex closure and percutaneous achilles tendon lengthening performed on 08/05/2016. This was performed secondary to abscess/septic joint/left foot infected ulceration - dehisced and ulcer now central and lateral (considered grade 1). edema/venous insufficiency. diabetic neuropathy. delayed healing / malnutrition. obesity. non compliance. History of recent blood clot right lower extremity treated medically during hospital admission Plan: I discussed his case and treatment plan. Subcutaneous excisional debridement to all bilateral ulcer sites performed today as noted in the clinical panel. It is noted he completed a full course of advanced wound care product, epifix,application. To apply Regranex to the ulcer sites and continue regranex to the right heel and left transmetatarsal amputation site 12 hours at a time when he is able to coordinate this with home health or family assistance. . To maintain improved skin integrity by applying lac hydrin lotion to both legs daily. Continue circaid wraps bilateral legs daily; it is okay to apply tubigrip prior to application of CircAid foot wrap to better keep his wound dressings in place. To avoid over I do not see any signs of systemic illness or overt clinical signs of infection. To continue diuretic medications per primary care physician.To elevate legs at rest. Compliance is imperative and this was discussed again today. To continue with portion control for weight loss and proper glycemic control and nutritional supplementation to optimize healing. His hemoglobin A1c went from 9.0 to 7.4. he takes a whey protein-based supplement at home and he was advised to continue in addition to a well-balanced nutritious diet. All of his questions were answered. He understands he is still at risk for limb loss. Due to the chronicity of the left lower extremity as well I recommend an updated left foot x-ray. The x-rays are reviewed without any gross fractures, dislocation, soft tissue emphysema, foreign body, or definitive osteomyelitis changes. There are some minimal reactive changes at the transmetatarsal amputation stump site. To follow-up at the wound care center in 1 week or call sooner if he has any questions or concerns.
[2017-07-08 14:05] VITALS: RESP 16; TEMP 36
--- NOTE | 2017-07-08 15:43 | PN.PCM_ITS ---
(1) Ulcer of right lower extremity with fat layer exposed Status: Chronic Current Visit: Yes Code(s): L97.912 - Non-pressure chronic ulcer of unspecified part of right lower leg with fat layer exposed (2) Type 2 diabetes mellitus with diabetic polyneuropathy Status: Chronic Current Visit: Yes Code(s): E11.42 - Type 2 diabetes mellitus with diabetic polyneuropathy (3) Ulcer of left lower extremity with fat layer exposed Status: Chronic Current Visit: Yes Code(s): L97.922 - Non-pressure chronic ulcer of unspecified part of left lower leg with fat layer exposed (4) Malnutrition Status: Chronic Current Visit: Yes Code(s): E46 - Unspecified protein- calorie malnutrition (5) Lower extremity edema Status: Chronic Current Visit: Yes Code(s): R60.0 - Localized edema (6) Edema, lower extremity Status: Chronic Current Visit: Yes Code(s): R60.0 - Localized edema (7) Lymphedema Status: Chronic Current Visit: Yes Code(s): I89.0 - Lymphedema, not elsewhere classified Type of Wound Date of Service: 07/09/17 Chief Complaint: Right heel ulcer with delayed healing. 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 right leg ulcers. lymphedema and continued leg swelling History of Wound: 62 year old male was seen for right heel ulcer with chronic osteomyelitis and for left foot delayed healing wound. His multiple newre leg and foot ulcers are noted. He denies fever, chill, nausea, vomiting. He missed his last wound center appointment due to transportation issues. He has Regranex at home and home health has been helping. Progress of Wound: stable - Physical Exam Vital Signs Temp Pulse Resp BP 96.8 F L 74 16 132/66 H 07/08/17 14:05 06/24/17 14:22 07/08/17 14:05 06/24/17 14:22 General: Alert, Oriented x3, Cooperative Extremities: No cyanosis, Capillary Refill Less than 3 Seconds, No Calf Tenderness - Negative [place] and Simmons bilateral, Diminished Peripheral Pulses, Edema Skin: Ulcer/ Wound - No purulence, erythema, streaking, no odor, no patient bilateral lower extremity. The skin is atrophic and hairless. There is no longer any eschar or tendinous tissue exposed to the anterior right ankle Wound Measurements and Assessment WC - Nurse 1 - General Ulcer Measurement Start: 06/22/17 06:09 Freq: Status: Active Protocol: Activity Type Activity Date Activity User E-Sign Co-Sign Detail Recorded Client Recorded Date Recorded By Document 07/08/17 14:05 [facility] [id number] 07/08/17 14:28 [facility] 07/08/17 14:05 Wound Center Nurse 1 [Ulcer Assessment] #11 LEFT ANKLE - POSTERIOR -Combined with other wound No -Current Size (cm) - Length 0.6 -Current Size (cm) - Width 0.5 -Current Size (cm) - Depth 0.1 -Total Square Cm 0.30 -Photo Taken No -Epithelialization None Present -Tunneling No -Undermining/Tunneling No -Circular Undermining No -Exudate Amt Small (1-33%) -Exudate Type Serosanguineous -Wound Margin Distinct, Outline Attached -Granulation Amt Large (67-100%) -Granulation Quality Red -Slough/Fibrin Yes -Necrosis Amt Small (1-33%) -Necrotic Tissue Type Adherent Slough -Structure Exposed None/Limited to Skin Breakdown -Texture (Susy-wound Skin Appearance) Scarring -Moisture (Susy-wound Skin Appearance Dry/Scaly ) -Color (Susy-wound Skin Appearance) Assessed -Temperature (Susy-wound Skin No Abnormality Appearance) (Pt Warm) -Tenderness on Palpation (Susy-wound No Skin Appearance) -Ulcer Cleansing Wound Cleanser -Foul Odor after Cleansing No -Anesthetic Used 4% Lidocaine Solution #10 RIGHT ANKLE- ANTERIOR -Combined with other wound No -Current Size (cm) - Length 4.6 -Current Size (cm) - Width 6.8 -Current Size (cm) - Depth 0.2 -Total Square Cm 31.28 -Photo Taken No -Epithelialization Small 1-33% -Tunneling No -Undermining/Tunneling No -Circular Undermining No -Exudate Amt Medium (34-66%) -Exudate Type Serosanguineous -Wound Margin Distinct, Outline Attached -Granulation Amt Medium (34-66%) -Granulation Quality Red -Slough/Fibrin Yes -Necrosis Amt Medium (34-66%) -Necrotic Tissue Type Adherent Slough -Structure Exposed None/Limited to Skin Breakdown -Texture (Susy-wound Skin Appearance) Scarring -Moisture (Susy-wound Skin Appearance Dry/Scaly ) -Color (Susy-wound Skin Appearance) Assessed -Temperature (Susy-wound Skin No Abnormality Appearance) (Pt Warm) -Tenderness on Palpation (Susy-wound No Skin Appearance) -Ulcer Cleansing Wound Cleanser -Foul Odor after Cleansing No -Anesthetic Used 4% Lidocaine Solution 8-right cluster bernstein -Combined with other wound No -Current Size (cm) - Length 9.5 -Current Size (cm) - Width 4.5 -Current Size (cm) - Depth 0.1 -Total Square Cm 42.75 -Photo Taken No -Epithelialization Small 1-33% -Tunneling No -Undermining/Tunneling No -Circular Undermining No -Exudate Amt Medium (34-66%) -Exudate Type Serosanguineous -Wound Margin Distinct, Outline Attached -Granulation Amt Large (67-100%) -Granulation Quality [place] -Slough/Fibrin No -Necrosis Amt None Present (0 %) -Structure Exposed None/Limited to Skin Breakdown -Texture (Susy-wound Skin Appearance) Scarring -Moisture (Susy-wound Skin Appearance Maceration ) Weeping Dry/Scaly -Color (Susy-wound Skin Appearance) Hemosiderin Staining -Temperature (Susy-wound Skin No Abnormality Appearance) (Pt Warm) -Tenderness on Palpation (Susy-wound No Skin Appearance) -Ulcer Cleansing Wound Cleanser -Foul Odor after Cleansing No -Anesthetic Used 4% Lidocaine Solution #12 Right Posterior LE -Combined with other wound No -Current Size (cm) - Length 2.1 -Current Size (cm) - Width 1.4 -Current Size (cm) - Depth 0.2 -Total Square Cm 2.94 -Photo Taken No -Epithelialization Small 1-33% -Tunneling No -Undermining/Tunneling No -Circular Undermining No -Exudate Amt Medium (34-66%) -Exudate Type Serosanguineous -Wound Margin Distinct, Outline Attached -Granulation Amt Small (1-33%) -Granulation Quality [place] -Slough/Fibrin Yes -Necrosis Amt Large (67-100%) -Necrotic Tissue Type Adherent Slough -Structure Exposed None/Limited to Skin Breakdown -Texture (Susy-wound Skin Appearance) Scarring -Moisture (Susy-wound Skin Appearance Dry/Scaly ) -Color (Susy-wound Skin Appearance) Assessed Erythema -Temperature (Susy-wound Skin No Abnormality Appearance) (Pt Warm) -Tenderness on Palpation (Susy-wound No Skin Appearance) -Ulcer Cleansing Wound Cleanser -Foul Odor after Cleansing No -Anesthetic Used 4% Lidocaine Solution #4 Left central TMA -Combined with other wound No -Current Size (cm) - Length 1.9 -Current Size (cm) - Width 0.9 -Current Size (cm) - Depth 0.3 -Total Square Cm 1.71 -Photo Taken No -Epithelialization Small 1-33% -Tunneling No -Undermining/Tunneling No -Circular Undermining No -Exudate Amt Small (1-33%) -Exudate Type Serosanguineous -Wound Margin Distinct, Outline Attached -Granulation Amt Large (67-100%) -Granulation Quality [place] -Slough/Fibrin Yes -Necrosis Amt Small (1-33%) -Structure Exposed None/Limited to Skin Breakdown -Texture (Susy-wound Skin Appearance) Scarring -Moisture (Susy-wound Skin Appearance Maceration ) Dry/Scaly -Color (Susy-wound Skin Appearance) Assessed -Temperature (Susy-wound Skin No Abnormality Appearance) (Pt Warm) -Tenderness on Palpation (Susy-wound No Skin Appearance) -Ulcer Cleansing Wound Cleanser -Foul Odor after Cleansing No -Anesthetic Used 4% Lidocaine Solution #1 right medial heel -Combined with other wound No -Current Size (cm) - Length 0.8 -Current Size (cm) - Width 3.3 -Current Size (cm) - Depth 0.2 -Total Square Cm 2.64 -Photo Taken No -Epithelialization None Present -Tunneling No -Undermining/Tunneling No -Circular Undermining No -Exudate Amt Medium (34-66%) -Exudate Type Serosanguineous -Wound Margin Distinct, Outline Attached -Granulation Amt Large (67-100%) -Granulation Quality [place] -Slough/Fibrin Yes -Necrosis Amt Small (1-33%) -Necrotic Tissue Type Adherent Slough -Structure Exposed None/Limited to Skin Breakdown -Texture (Susy-wound Skin Appearance) Scarring -Moisture (Susy-wound Skin Appearance Dry/Scaly ) -Color (Susy-wound Skin Appearance) Assessed -Temperature (Susy-wound Skin No Abnormality Appearance) (Pt Warm) -Tenderness on Palpation (Susy-wound No Skin Appearance) -Ulcer Cleansing Wound Cleanser -Foul Odor after Cleansing No -Anesthetic Used 4% Lidocaine Solution [Edema Assessment] -Lower Limb Edema Present Yes -Right Calf (cm) 51.9 -Right Ankle (cm) 29 -Left Calf (cm) 51.8 -Left Ankle (cm) 29.5 WC - Nurse 2 - General Ulcer CM Notes Start: 06/22/17 06:09 Freq: Status: Active Protocol: Activity Type Activity Date Activity User E-Sign Co-Sign Detail Recorded Client Recorded Date Recorded By Document 07/08/17 15:15 [id number] 07/08/17 15:19 07/08/17 15:15 Wound Center Nurse 2 [Procedure/Treatment] #11 LEFT ANKLE - POSTERIOR -Time 15:15 -Correct Patient Yes -Correct Side, Site, Position Yes -Correct Procedure Yes -Procedure Performed Yes -Type of Procedure Debridement -Clinical Debridement Subcutaneous -Post Debridement Size (cm) - Length 0.7 -Post Debridement Size (cm) - Width 0.6 -Post Debridement Size (cm) - Depth 0.1 -Total Square Cm 0.42 -Wound/Ulcer Outcome Not Healed -Ulcer Cleansing Rinsed/ Irrigated with Saline -Foul Odor after Cleansing No -Bioengineered Tissue No -Topical Lidocaine (%) 4 -Bleeding Controlled with Pressure -Treatment Response Procedure Tolerated Well #10 RIGHT ANKLE- ANTERIOR -Time 15:16 -Correct Patient Yes -Correct Side, Site, Position Yes -Correct Procedure Yes -Procedure Performed Yes -Type of Procedure Debridement -Clinical Debridement Subcutaneous -Post Debridement Size (cm) - Length 4.7 -Post Debridement Size (cm) - Width 6.9 -Post Debridement Size (cm) - Depth 0.2 -Total Square Cm 32.43 -Wound/Ulcer Outcome Not Healed -Ulcer Cleansing Rinsed/ Irrigated with Saline -Foul Odor after Cleansing No -Bioengineered Tissue No -Topical Lidocaine (%) 4 -Bleeding Controlled with Pressure -Treatment Response Procedure Tolerated Well 8-right cluster bernstein -Time 15:17 -Correct Patient Yes -Correct Side, Site, Position Yes -Correct Procedure Yes -Procedure Performed Yes -Type of Procedure Debridement -Clinical Debridement Subcutaneous -Post Debridement Size (cm) - Length 9.6 -Post Debridement Size (cm) - Width 4.6 -Post Debridement Size (cm) - Depth 0.1 -Total Square Cm 44.16 -Wound/Ulcer Outcome Not Healed -Ulcer Cleansing Rinsed/ Irrigated with Saline -Foul Odor after Cleansing No -Bioengineered Tissue No -Topical Lidocaine (%) 4 -Bleeding Controlled with Pressure -Treatment Response Procedure Tolerated Well #12 Right Posterior LE -Time 15:17 -Correct Patient Yes -Correct Side, Site, Position Yes -Correct Procedure Yes -Procedure Performed Yes -Type of Procedure Debridement -Clinical Debridement Subcutaneous -Post Debridement Size (cm) - Length 2.2 -Post Debridement Size (cm) - Width 1.5 -Post Debridement Size (cm) - Depth 0.2 -Total Square Cm 3.30 -Wound/Ulcer Outcome Not Healed -Ulcer Cleansing Rinsed/ Irrigated with Saline -Foul Odor after Cleansing No -Bioengineered Tissue No -Topical Lidocaine (%) 4 -Bleeding Controlled with Pressure -Treatment Response Procedure Tolerated Well #4 Left central TMA -Time 15:18 -Correct Patient Yes -Correct Side, Site, Position Yes -Correct Procedure Yes -Procedure Performed Yes -Type of Procedure Debridement -Clinical Debridement Subcutaneous -Post Debridement Size (cm) - Length 2.0 -Post Debridement Size (cm) - Width 1.0 -Post Debridement Size (cm) - Depth 0.3 -Total Square Cm 2.00 -Wound/Ulcer Outcome Not Healed -Ulcer Cleansing Rinsed/ Irrigated with Saline -Foul Odor after Cleansing No -Bioengineered Tissue No -Topical Lidocaine (%) 4 -Bleeding Controlled with Pressure -Treatment Response Procedure Tolerated Well #1 right medial heel -Time 15:18 -Correct Patient Yes -Correct Side, Site, Position Yes -Correct Procedure Yes -Procedure Performed Yes -Type of Procedure Debridement -Clinical Debridement Subcutaneous -Post Debridement Size (cm) - Length 0.9 -Post Debridement Size (cm) - Width 3.4 -Post Debridement Size (cm) - Depth 0.2 -Total Square Cm 3.06 -Wound/Ulcer Outcome Not Healed -Ulcer Cleansing Rinsed/ Irrigated with Saline -Foul Odor after Cleansing No -Bioengineered Tissue No -Topical Lidocaine (%) 4 -Bleeding Controlled with Pressure -Treatment Response Procedure Tolerated Well [See Physician Procedure note for Specifics] Pain Scale: 0-10 Numeric [Pain] -Is Patient Pain Free? Yes Musculoskeletal: No Tenderness to Palpation of Joints or Extremities, Muscle Wasting, - - Lymphedema and induration bilateral lower extremities. Left transmetatarsal amputation Neurological: - - Lack of epicritic sensation light touch bilateral lower extremities Psych/Mental Status: Normal Affect, Appropriate Debridement Note Post-Debridement Measurements/Treatment WC - Nurse 2 - General Ulcer CM Notes Start: 06/22/17 06:09 Freq: Status: Active Protocol: Activity Type Activity Date Activity User E-Sign Co-Sign Detail Recorded Client Recorded Date Recorded By Document 06/24/17 15:26 [id number] 06/24/17 15:29 TM Document 07/08/17 15:15 [id number] 07/08/17 15:19 TM 06/24/17 07/08/17 15:26 15:15 Wound Center Nurse 2 #11 LEFT ANKLE - POSTERIOR -Time 15: 15:15 -Correct Patient Yes Yes -Correct Side, Site, Position Yes Yes -Correct Procedure Yes Yes -Procedure Performed Yes Yes -Type of Procedure Debridement Debridement -Clinical Debridement Subcutaneous Subcutaneous -Post Debridement Size (cm) - Length 7.1 0.7 -Post Debridement Size (cm) - Width 0.8 0.6 -Post Debridement Size (cm) - Depth 0.1 0.1 -Total Square Cm 5.68 0.42 -Wound/Ulcer Outcome Not Healed Not Healed -Ulcer Cleansing Rinsed/ Rinsed/ Irrigated with Irrigated with Saline Saline -Foul Odor after Cleansing No No -Bioengineered Tissue No No -Topical Lidocaine (%) 4 4 -Bleeding Controlled with Pressure Pressure -Treatment Response Procedure Procedure Tolerated Well Tolerated Well #10 RIGHT ANKLE- ANTERIOR -Time 15:27 15:16 -Correct Patient Yes Yes -Correct Side, Site, Position Yes Yes -Correct Procedure Yes Yes -Procedure Performed Yes Yes -Type of Procedure Debridement Debridement -Clinical Debridement Subcutaneous Subcutaneous -Post Debridement Size (cm) - Length 5.2 4.7 -Post Debridement Size (cm) - Width 6.9 6.9 -Post Debridement Size (cm) - Depth 0.2 0.2 -Total Square Cm 35.88 32.43 -Wound/Ulcer Outcome Not Healed Not Healed -Ulcer Cleansing Rinsed/ Rinsed/ Irrigated with Irrigated with Saline Saline -Foul Odor after Cleansing No No -Bioengineered Tissue No No -Topical Lidocaine (%) 4 4 -Bleeding Controlled with Pressure Pressure -Treatment Response Procedure Procedure Tolerated Well Tolerated Well 8-right cluster bernstein -Time 15:27 15:17 -Correct Patient Yes Yes -Correct Side, Site, Position Yes Yes -Correct Procedure Yes Yes -Procedure Performed Yes Yes -Type of Procedure Debridement Debridement -Clinical Debridement Subcutaneous Subcutaneous -Post Debridement Size (cm) - Length 8.6 9.6 -Post Debridement Size (cm) - Width 6.1 4.6 -Post Debridement Size (cm) - Depth 0.1 0.1 -Total Square Cm 52.46 44.16 -Wound/Ulcer Outcome Not Healed Not Healed -Ulcer Cleansing Rinsed/ Rinsed/ Irrigated with Irrigated with Saline Saline -Foul Odor after Cleansing No No -Bioengineered Tissue No No -Topical Lidocaine (%) 4 4 -Bleeding Controlled with Pressure Pressure -Treatment Response Procedure Procedure Tolerated Well Tolerated Well #12 Right Posterior LE -Time 15:28 15:17 -Correct Patient Yes Yes -Correct Side, Site, Position Yes Yes -Correct Procedure Yes Yes -Procedure Performed Yes Yes -Type of Procedure Debridement Debridement -Clinical Debridement Subcutaneous Subcutaneous -Post Debridement Size (cm) - Length 2.5 2.2 -Post Debridement Size (cm) - Width 0.7 1.5 -Post Debridement Size (cm) - Depth 0.1 0.2 -Total Square Cm 1.75 3.30 -Wound/Ulcer Outcome Not Healed Not Healed -Ulcer Cleansing Rinsed/ Rinsed/ Irrigated with Irrigated with Saline Saline -Foul Odor after Cleansing No No -Bioengineered Tissue No No -Topical Lidocaine (%) 4 4 -Bleeding Controlled with Pressure Pressure -Treatment Response Procedure Procedure Tolerated Well Tolerated Well #4 Left central TMA -Time 15:28 15:18 -Correct Patient Yes Yes -Correct Side, Site, Position Yes Yes -Correct Procedure Yes Yes -Procedure Performed Yes Yes -Type of Procedure Debridement Debridement -Clinical Debridement Subcutaneous Subcutaneous -Post Debridement Size (cm) - Length 1.0 2.0 -Post Debridement Size (cm) - Width 0.5 1.0 -Post Debridement Size (cm) - Depth 0.2 0.3 -Total Square Cm 0.50 2.00 -Wound/Ulcer Outcome Not Healed Not Healed -Ulcer Cleansing Rinsed/ Rinsed/ Irrigated with Irrigated with Saline Saline -Foul Odor after Cleansing No No -Bioengineered Tissue No No -Topical Lidocaine (%) 4 4 -Bleeding Controlled with Pressure Pressure -Treatment Response Procedure Procedure Tolerated Well Tolerated Well #1 right medial heel -Time 15:28 15:18 -Correct Patient Yes Yes -Correct Side, Site, Position Yes Yes -Correct Procedure Yes Yes -Procedure Performed Yes Yes -Type of Procedure Debridement Debridement -Clinical Debridement Subcutaneous Subcutaneous -Post Debridement Size (cm) - Length 0.9 0.9 -Post Debridement Size (cm) - Width 2.7 3.4 -Post Debridement Size (cm) - Depth 0.1 0.2 -Total Square Cm 2.43 3.06 -Wound/Ulcer Outcome Not Healed Not Healed -Ulcer Cleansing Rinsed/ Rinsed/ Irrigated with Irrigated with Saline Saline -Foul Odor after Cleansing No No -Bioengineered Tissue No No -Topical Lidocaine (%) 4 4 -Bleeding Controlled with Pressure Pressure -Treatment Response Procedure Procedure Tolerated Well Tolerated Well Pain Scale: 0-10 Numeric Is Patient Pain Free? Yes Yes Wound debrided: heel Laterality: Right Wound Grade/Stage: grade 3 Type of Debridement: Excisional debridement Anesthesia Used: 5% Lidocaine Gel Depth: in the subcutaneous layer Percentage of wound debrided: 100 Instrument Used: #15 blade Tissue Removed: fibrous, devitalized subcutaneous, biofilm, slough Severity: Fat Layer Exposed Amount of bleeding with debridement: Mild Bleeding Controlled with: Pressure Patient tolerated procedure well - Additional Wound Wound debrided: anterior ankle Laterality: Right Wound Grade/Stage: grade 2 Type of Debridement: Excisional debridement Anesthesia Used: 4% Lidocaine Solution Depth: in the subcutaneous layer Percentage of wound debrided: 100 Instrument Used: #15 blade Tissue Removed: fibrous, devitalized subcutaneous, biofilm, slough Severity: Fat Layer Exposed Amount of bleeding with debridement: Mild Bleeding Controlled with: Pressure Patient tolerated procedure: Patient tolerated procedure well - Additional Wound Wound debrided: leg Laterality: Right Wound Grade/Stage: grade 1 Type of Debridement: Excisional debridement Anesthesia Used: 5% Lidocaine Gel Depth: in the subcutaneous layer Percentage of wound debrided: 100 Instrument Used: #15 blade Tissue Removed: fibrous, devitalized subcutaneous, biofilm, slough Severity: Fat Layer Exposed Amount of bleeding with debridement: Mild Bleeding Controlled with: Pressure Patient tolerated procedure: Patient tolerated procedure well - Additional Wound Wound debrided: foot Laterality: Left Wound Grade/Stage: grade 1 Type of Debridement: Excisional debridement Anesthesia Used: 5% Lidocaine Gel Depth: in the subcutaneous layer Percentage of wound debrided: 100 Instrument Used: #15 blade Tissue Removed: fibrous, devitalized subcutaneous, biofilm, slough Severity: Fat Layer Exposed Amount of bleeding with debridement: Mild Bleeding Controlled with: Pressure Patient tolerated procedure: Patient tolerated procedure well - Additional Wound Wound debrided: ankle Laterality: Left Wound Grade/Stage: grade 1 Type of Debridement: Excisional debridement Anesthesia Used: 5% Lidocaine Gel Depth: in the subcutaneous layer Percentage of wound debrided: 100 Instrument Used: #15 blade Tissue Removed: fibrous, devitalized subcutaneous, biofilm, slough Severity: Fat Layer Exposed Amount of bleeding with debridement: Mild Bleeding Controlled with: Pressure Patient tolerated procedure: Patient tolerated procedure well Assessment/Plan Active Problems Lymphedema (Chronic) Type 2 diabetes mellitus with diabetic polyneuropathy (Chronic) Ulcer of right lower extremity with fat layer exposed (Chronic) Ulcer of left lower extremity with fat layer exposed (Chronic) Malnutrition (Chronic) Lower extremity edema (Chronic) Edema, lower extremity (Chronic) Assessment: right leg ulcers with fat layer exposed, stable. Left leg ulcers with fat layer exposed, stable. right dorsal foot ulcer, stable. right diabetic heel ulcer with fat exposed and medically treated for previous osteomyelitis. left chronic foot ulcer with fat layer exposed. s/p left transmetatarsal amputation with complex closure and percutaneous achilles tendon lengthening performed on 08/05/2016. This was performed secondary to abscess/septic joint/left foot infected ulceration - dehisced and ulcer now central and lateral (considered grade 1). edema/venous insufficiency. Lymphedema. diabetic neuropathy. delayed healing / malnutrition. obesity. non compliance. History of recent blood clot right lower extremity treated medically during hospital admission Plan: I discussed his case and treatment plan. Subcutaneous excisional debridement to all bilateral ulcer sites performed today as noted in the clinical panel. It is noted he completed a full course of advanced wound care product, epifix,application. To apply Regranex to the ulcer sites and continue regranex to the right heel and left transmetatarsal amputation site 12 hours at a time when he is able to coordinate this with home health or family assistance. . To maintain improved skin integrity by applying lac hydrin lotion to both legs daily. Continue circaid wraps bilateral legs daily; it is okay to apply tubigrip prior to application of CircAid foot wrap to better keep his wound dressings in place. To avoid over I do not see any signs of systemic illness or overt clinical signs of infection. I recommend getting more aggressive with his edema management and a referral was provided. I also recommend initiating a compression pump device this was started at this time as well. To continue diuretic medications per primary care physician.To elevate legs at rest. Compliance is imperative and this was discussed again today. To continue with portion control for weight loss and proper glycemic control and nutritional supplementation to optimize healing. His hemoglobin A1c went from 9.0 to 7.4. he takes a whey protein-based supplement at home and he was advised to continue in addition to a well-balanced nutritious diet. All of his questions were answered. He understands he is still at risk for limb loss. Due to the chronicity of the left lower extremity as well I recommend an updated left foot x-ray. The x-rays are reviewed without any gross fractures, dislocation, soft tissue emphysema, foreign body, or definitive osteomyelitis changes. There are some minimal reactive changes at the transmetatarsal amputation stump site. To follow-up at the wound care center in 1 week or call sooner if he has any questions or concerns.
== END 2017-07-13 23:59 ==
LOC: WC 14:30
PROVIDERS: Family Provider Family Medicine; PCP Family Medicine; Visit Provider Podiatrist
DX: E11.622 Type 2 diabetes mellitus with other skin ulcer (principal); E11.42 Type 2 diabetes mellitus with diabetic polyneuropathy; R60.0 Localized edema; E11.621 Type 2 diabetes mellitus with foot ulcer; L97.412 Non-pressure chronic ulcer of right heel and midfoot with fat layer exposed; L97.822 Non-pressure chronic ulcer of other part of left lower leg with fat layer exposed; L97.812 Non-pressure chronic ulcer of other part of right lower leg with fat layer exposed; Z89.432 Acquired absence of left foot; Z91.19 Patient's noncompliance with other medical treatment and regimen; E66.9 Obesity, unspecified; Z71.3 Dietary counseling and surveillance; I89.0 Lymphedema, not elsewhere classified; I87.2 Venous insufficiency (chronic) (peripheral)
CPT/HCPCS: 11042; 11045

== ENCOUNTER 2017-08-12 10:00 | Outpatient (RCR) | payer MEDICARE, MEDICAID, SELFPAY ==
[2017-07-14 00:25] VITALS: BP 190/84; PULSE 74; RESP 16; TEMP 36
[2017-08-05 11:11] VITALS: BP 157/75; PULSE 61; RESP 20; TEMP 35.5
--- NOTE | 2017-08-05 12:09 | PCM.WC.PN ---
(1) Ulcer of right lower extremity with fat layer exposed Status: Chronic Code(s): L97.912 - Non-pressure chronic ulcer of unspecified part of right lower leg with fat layer exposed (2) Ulcer of left lower extremity with fat layer exposed Status: Chronic Code(s): L97.922 - Non-pressure chronic ulcer of unspecified part of left lower leg with fat layer exposed (3) Lymphedema Status: Chronic Code(s): I89.0 - Lymphedema, not elsewhere classified (4) Obesity Status: Acute Code(s): E66.9 - Obesity, unspecified (5) Lower extremity edema Status: Acute Code(s): R60.0 - Localized edema (6) Type 2 diabetes mellitus with diabetic polyneuropathy Status: Chronic Code(s): E11.42 - Type 2 diabetes mellitus with diabetic polyneuropathy (7) Chronic ulcer of left foot with fat layer exposed Status: Chronic Code(s): L97.522 - Non-pressure chronic ulcer of other part of left foot with fat layer exposed (8) Ulcer of right foot with fat layer exposed Status: Chronic Code(s): L97.512 - Non-pressure chronic ulcer of other part of right foot with fat layer exposed (9) Type 2 diabetes mellitus with diabetic polyneuropathy Status: Chronic Code(s): E11.42 - Type 2 diabetes mellitus with diabetic polyneuropathy (10) Venous insufficiency Status: Chronic Code(s): I87.2 - Venous insufficiency (chronic) (peripheral) Type of Wound Date of Service: 08/10/17 Chief Complaint: Right heel ulcer with delayed healing. 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 right leg ulcers. Right leg ulcers with delayed healing. right second toe ulcer. lymphedema and continued leg swelling History of Wound: 62 year old male was seen for right heel ulcer with chronic osteomyelitis and for left foot delayed healing wound. He denies fever, chill, nausea, vomiting. He has Regranex at home and home health has been helping. He obtained his lymphedema pumps and uses them 2-3 times a day with significant edema reduction. He has not been set up with lymphedema clinic yet. Progress of Wound: Improving. New right second toe ulcer - Physical Exam Vital Signs Temp Pulse Resp BP 96 F L 61 20 H 157/75 H 08/05/17 11:11 08/05/17 11:11 08/05/17 11:11 08/05/17 11:11 General: Alert, Oriented x3, Cooperative Extremities: No cyanosis, Capillary Refill Less than 3 Seconds, No Calf Tenderness, Diminished Peripheral Pulses, Edema Skin: Ulcer/ Wound - No purulence, erythema, streaking, no odor, no infection bilateral lower extremities. His skin is atrophic and hairless. The wound bed bases include granulation fibrous tissue. There is no necrosis or eschar bilateral Wound Measurements and Assessment WC - Nurse 1 - General Ulcer Measurement Start: 08/05/17 11:11 Freq: Status: Active Protocol: Activity Type Activity Date Activity User E-Sign Co-Sign Detail Recorded Client Recorded Date Recorded By Document 08/05/17 11:11 DL [id number] 08/05/17 11:38 DL 08/05/17 11:11 Wound Center Nurse 1 [Ulcer Assessment] #11 LEFT ANKLE - POSTERIOR -Current Size (cm) - Length 0 -Current Size (cm) - Width 0 -Current Size (cm) - Depth 0 -Total Square Cm 0 -Photo Taken Yes -Exudate Amt None Present (0 %) -Wound Margin Flat & Intact -Granulation Amt Large (67-100%) -Granulation Quality [place] -Necrosis Amt Small (1-33%) -Necrotic Tissue Type Adherent Slough -Structure Exposed N/A -Texture (Susy-wound Skin Appearance) No Abnormality -Moisture (Susy-wound Skin Appearance No Abnormality ) -Color (Susy-wound Skin Appearance) Hemosiderin Staining -Temperature (Susy-wound Skin No Abnormality Appearance) (Pt Warm) -Tenderness on Palpation (Susy-wound No Skin Appearance) -Ulcer Cleansing Wound Cleanser -Foul Odor after Cleansing No #10 RIGHT ANKLE- ANTERIOR -Current Size (cm) - Length 2.9 -Current Size (cm) - Width 6 -Current Size (cm) - Depth 0.2 -Total Square Cm 17.4 -Photo Taken Yes -Exudate Amt Small (1-33%) -Exudate Type Serosanguineous -Wound Margin Thickened -Granulation Amt Medium (34-66%) -Granulation Quality Red -Necrosis Amt Medium (34-66%) -Necrotic Tissue Type Adherent Slough -Structure Exposed N/A -Texture (Susy-wound Skin Appearance) Scarring -Moisture (Susy-wound Skin Appearance Dry/Scaly ) -Color (Susy-wound Skin Appearance) Hemosiderin Staining Rubor -Temperature (Susy-wound Skin No Abnormality Appearance) (Pt Warm) -Tenderness on Palpation (Susy-wound No Skin Appearance) -Ulcer Cleansing Wound Cleanser -Foul Odor after Cleansing No -Anesthetic Used 4% Lidocaine Solution 8-right cluster bernstein -Current Size (cm) - Length 1.8 -Current Size (cm) - Width 0.8 -Current Size (cm) - Depth 0.1 -Total Square Cm 1.44 -Photo Taken Yes -Exudate Amt Small (1-33%) -Exudate Type Serosanguineous -Wound Margin Flat & Intact -Granulation Amt Large (67-100%) -Granulation Quality [place] -Necrosis Amt Small (1-33%) -Necrotic Tissue Type Adherent Slough -Structure Exposed N/A -Texture (Susy-wound Skin Appearance) Scarring -Moisture (Susy-wound Skin Appearance Dry/Scaly ) -Temperature (Susy-wound Skin No Abnormality Appearance) (Pt Warm) -Ulcer Cleansing Wound Cleanser -Foul Odor after Cleansing No -Anesthetic Used 4% Lidocaine Solution #12 Right Posterior LE -Current Size (cm) - Length 1 -Current Size (cm) - Width 1 -Current Size (cm) - Depth 0.2 -Total Square Cm 1 -Photo Taken Yes -Exudate Amt Small (1-33%) -Exudate Type Serosanguineous -Wound Margin Thickened -Granulation Amt Small (1-33%) -Granulation Quality [place] -Necrosis Amt Small (1-33%) -Necrotic Tissue Type Adherent Slough -Structure Exposed N/A -Texture (Susy-wound Skin Appearance) Scarring -Moisture (Susy-wound Skin Appearance Dry/Scaly ) -Color (Susy-wound Skin Appearance) Hemosiderin Staining -Temperature (Susy-wound Skin No Abnormality Appearance) (Pt Warm) -Tenderness on Palpation (Susy-wound No Skin Appearance) -Ulcer Cleansing Wound Cleanser -Foul Odor after Cleansing No -Anesthetic Used 4% Lidocaine Solution #4 Left central TMA -Current Size (cm) - Length 0.7 -Current Size (cm) - Width 0.3 -Current Size (cm) - Depth 0.3 -Total Square Cm 0.21 -Photo Taken Yes -Exudate Amt Small (1-33%) -Exudate Type Serosanguineous -Wound Margin Distinct, Outline Attached -Granulation Amt Small (1-33%) -Granulation Quality [place] -Necrosis Amt Medium (34-66%) -Necrotic Tissue Type Adherent Slough -Structure Exposed N/A -Texture (Susy-wound Skin Appearance) Scarring -Moisture (Susy-wound Skin Appearance Dry/Scaly ) -Color (Susy-wound Skin Appearance) Hemosiderin Staining -Temperature (Susy-wound Skin No Abnormality Appearance) (Pt Warm) -Tenderness on Palpation (Susy-wound No Skin Appearance) -Ulcer Cleansing Wound Cleanser -Foul Odor after Cleansing No -Anesthetic Used 4% Lidocaine Solution #1 right medial heel -Current Size (cm) - Length 0.9 -Current Size (cm) - Width 3 -Current Size (cm) - Depth 0.2 -Total Square Cm 2.7 -Photo Taken Yes -Exudate Amt Small (1-33%) -Exudate Type Serosanguineous -Wound Margin Thickened -Granulation Amt Large (67-100%) -Granulation Quality Red -Necrosis Amt Small (1-33%) -Necrotic Tissue Type Adherent Slough -Structure Exposed N/A -Texture (Susy-wound Skin Appearance) Callus -Moisture (Susy-wound Skin Appearance Dry/Scaly ) -Color (Susy-wound Skin Appearance) No Abnormality -Temperature (Susy-wound Skin No Abnormality Appearance) (Pt Warm) -Tenderness on Palpation (Susy-wound No Skin Appearance) -Ulcer Cleansing Wound Cleanser -Foul Odor after Cleansing No -Anesthetic Used 4% Lidocaine Solution [Edema Assessment] -Right Calf (cm) 47.5 -Right Ankle (cm) 29 -Left Calf (cm) 46 -Left Ankle (cm) 28 WC - Nurse 2 - General Ulcer CM Notes Start: 08/05/17 11:11 Freq: Status: Active Protocol: Activity Type Activity Date Activity User E-Sign Co-Sign Detail Recorded Client Recorded Date Recorded By Document 08/05/17 11:52 NORRIS [id number] 08/05/17 11:57 NORRIS 08/05/17 11:52 Wound Center Nurse 2 [Procedure/Treatment] 13-right 2nd toe -Time 12:02 -Correct Patient Yes -Correct Side, Site, Position Yes -Correct Procedure Yes -Procedure Performed Yes -Type of Procedure Debridement -Clinical Debridement Subcutaneous -Post Debridement Size (cm) - Length 1.5 -Post Debridement Size (cm) - Width 1.4 -Post Debridement Size (cm) - Depth 0.1 -Total Square Cm 2.10 -Wound/Ulcer Outcome Not Healed -Ulcer Cleansing Rinsed/ Irrigated with Saline -Foul Odor after Cleansing No -Bioengineered Tissue No -Bleeding Controlled with Pressure -Treatment Response Procedure Tolerated Well #10 RIGHT ANKLE- ANTERIOR -Time 11:53 -Correct Patient Yes -Correct Side, Site, Position Yes -Correct Procedure Yes -Procedure Performed Yes -Type of Procedure Debridement -Clinical Debridement Subcutaneous -Post Debridement Size (cm) - Length 3 -Post Debridement Size (cm) - Width 6 -Post Debridement Size (cm) - Depth 0.2 -Total Square Cm 18 -Wound/Ulcer Outcome Not Healed -Ulcer Cleansing Rinsed/ Irrigated with Saline -Foul Odor after Cleansing No -Bioengineered Tissue No -Bleeding Controlled with Pressure -Treatment Response Procedure Tolerated Well 8-right cluster bernstein -Time 11:53 -Correct Patient Yes -Correct Side, Site, Position Yes -Correct Procedure Yes -Procedure Performed Yes -Type of Procedure Debridement -Clinical Debridement Subcutaneous -Post Debridement Size (cm) - Length 1.8 -Post Debridement Size (cm) - Width 0.9 -Post Debridement Size (cm) - Depth 0.2 -Total Square Cm 1.62 -Wound/Ulcer Outcome Not Healed -Ulcer Cleansing Rinsed/ Irrigated with Saline -Foul Odor after Cleansing No -Bioengineered Tissue No -Bleeding Controlled with Pressure -Treatment Response Procedure Tolerated Well #12 Right Posterior LE -Time 11:53 -Correct Patient Yes -Correct Side, Site, Position Yes -Correct Procedure Yes -Procedure Performed Yes -Type of Procedure Debridement -Clinical Debridement Subcutaneous -Post Debridement Size (cm) - Length 1.1 -Post Debridement Size (cm) - Width 1.1 -Post Debridement Size (cm) - Depth 0.2 -Total Square Cm 1.21 -Wound/Ulcer Outcome Not Healed -Ulcer Cleansing Rinsed/ Irrigated with Saline -Foul Odor after Cleansing No -Bioengineered Tissue No -Bleeding Controlled with Pressure -Treatment Response Procedure Tolerated Well #4 Left central TMA -Time 11:54 -Correct Patient Yes -Correct Side, Site, Position Yes -Correct Procedure Yes -Procedure Performed Yes -Type of Procedure Debridement -Clinical Debridement Subcutaneous -Post Debridement Size (cm) - Length 0.8 -Post Debridement Size (cm) - Width 0.4 -Post Debridement Size (cm) - Depth 0.3 -Total Square Cm 0.32 -Wound/Ulcer Outcome Not Healed -Ulcer Cleansing Rinsed/ Irrigated with Saline -Foul Odor after Cleansing No -Bioengineered Tissue No -Bleeding Controlled with Pressure -Treatment Response Procedure Tolerated Well #1 right medial heel -Time 11:54 -Correct Patient Yes -Correct Side, Site, Position Yes -Correct Procedure Yes -Procedure Performed Yes -Type of Procedure Debridement -Clinical Debridement Subcutaneous -Post Debridement Size (cm) - Length 1 -Post Debridement Size (cm) - Width 3.0 -Post Debridement Size (cm) - Depth 0.2 -Total Square Cm 3.0 -Wound/Ulcer Outcome Not Healed -Ulcer Cleansing Rinsed/ Irrigated with Saline -Foul Odor after Cleansing No -Bioengineered Tissue No -Bleeding Controlled with Pressure -Treatment Response Procedure Tolerated Well [See Physician Procedure note for Specifics] Pain Scale: 0-10 Numeric [Pain] -Is Patient Pain Free? Yes Musculoskeletal: No Tenderness to Palpation of Joints or Extremities, Muscle Wasting, - - Left transmetatarsal amputation. Bilateral lower extremities compartments remain soft Neurological: - - Lack of epicritic sensation to light touch Psych/Mental Status: Normal Affect, Appropriate Debridement Note Post-Debridement Measurements/Treatment WC - Nurse 2 - General Ulcer CM Notes Start: 08/05/17 11:11 Freq: Status: Active Protocol: Activity Type Activity Date Activity User E-Sign Co-Sign Detail Recorded Client Recorded Date Recorded By Document 08/05/17 11:52 NORRIS [id number] 08/05/17 11:57 NORRIS 08/05/17 11:52 Wound Center Nurse 2 13-right 2nd toe -Time 12:02 -Correct Patient Yes -Correct Side, Site, Position Yes -Correct Procedure Yes -Procedure Performed Yes -Type of Procedure Debridement -Clinical Debridement Subcutaneous -Post Debridement Size (cm) - Length 1.5 -Post Debridement Size (cm) - Width 1.4 -Post Debridement Size (cm) - Depth 0.1 -Total Square Cm 2.10 -Wound/Ulcer Outcome Not Healed -Ulcer Cleansing Rinsed/ Irrigated with Saline -Foul Odor after Cleansing No -Bioengineered Tissue No -Bleeding Controlled with Pressure -Treatment Response Procedure Tolerated Well #10 RIGHT ANKLE- ANTERIOR -Time 11:53 -Correct Patient Yes -Correct Side, Site, Position Yes -Correct Procedure Yes -Procedure Performed Yes -Type of Procedure Debridement -Clinical Debridement Subcutaneous -Post Debridement Size (cm) - Length 3 -Post Debridement Size (cm) - Width 6 -Post Debridement Size (cm) - Depth 0.2 -Total Square Cm 18 -Wound/Ulcer Outcome Not Healed -Ulcer Cleansing Rinsed/ Irrigated with Saline -Foul Odor after Cleansing No -Bioengineered Tissue No -Bleeding Controlled with Pressure -Treatment Response Procedure Tolerated Well 8-right cluster bernstein -Time 11:53 -Correct Patient Yes -Correct Side, Site, Position Yes -Correct Procedure Yes -Procedure Performed Yes -Type of Procedure Debridement -Clinical Debridement Subcutaneous -Post Debridement Size (cm) - Length 1.8 -Post Debridement Size (cm) - Width 0.9 -Post Debridement Size (cm) - Depth 0.2 -Total Square Cm 1.62 -Wound/Ulcer Outcome Not Healed -Ulcer Cleansing Rinsed/ Irrigated with Saline -Foul Odor after Cleansing No -Bioengineered Tissue No -Bleeding Controlled with Pressure -Treatment Response Procedure Tolerated Well #12 Right Posterior LE -Time 11:53 -Correct Patient Yes -Correct Side, Site, Position Yes -Correct Procedure Yes -Procedure Performed Yes -Type of Procedure Debridement -Clinical Debridement Subcutaneous -Post Debridement Size (cm) - Length 1.1 -Post Debridement Size (cm) - Width 1.1 -Post Debridement Size (cm) - Depth 0.2 -Total Square Cm 1.21 -Wound/Ulcer Outcome Not Healed -Ulcer Cleansing Rinsed/ Irrigated with Saline -Foul Odor after Cleansing No -Bioengineered Tissue No -Bleeding Controlled with Pressure -Treatment Response Procedure Tolerated Well #4 Left central TMA -Time 11:54 -Correct Patient Yes -Correct Side, Site, Position Yes -Correct Procedure Yes -Procedure Performed Yes -Type of Procedure Debridement -Clinical Debridement Subcutaneous -Post Debridement Size (cm) - Length 0.8 -Post Debridement Size (cm) - Width 0.4 -Post Debridement Size (cm) - Depth 0.3 -Total Square Cm 0.32 -Wound/Ulcer Outcome Not Healed -Ulcer Cleansing Rinsed/ Irrigated with Saline -Foul Odor after Cleansing No -Bioengineered Tissue No -Bleeding Controlled with Pressure -Treatment Response Procedure Tolerated Well #1 right medial heel -Time 11:54 -Correct Patient Yes -Correct Side, Site, Position Yes -Correct Procedure Yes -Procedure Performed Yes -Type of Procedure Debridement -Clinical Debridement Subcutaneous -Post Debridement Size (cm) - Length 1 -Post Debridement Size (cm) - Width 3.0 -Post Debridement Size (cm) - Depth 0.2 -Total Square Cm 3.0 -Wound/Ulcer Outcome Not Healed -Ulcer Cleansing Rinsed/ Irrigated with Saline -Foul Odor after Cleansing No -Bioengineered Tissue No -Bleeding Controlled with Pressure -Treatment Response Procedure Tolerated Well Pain Scale: 0-10 Numeric Is Patient Pain Free? Yes Wound debrided: leg Laterality: Right Wound Grade/Stage: grade 1 Type of Debridement: Excisional debridement Anesthesia Used: 5% Lidocaine Gel Depth: in the subcutaneous layer Percentage of wound debrided: 100 Instrument Used: #15 blade Tissue Removed: fibrous, devitalized subcutaneous, biofilm, slough Severity: Fat Layer Exposed Amount of bleeding with debridement: Mild Bleeding Controlled with: Pressure Patient tolerated procedure well - Additional Wound Wound debrided: posterior leg Laterality: Right Wound Grade/Stage: grade 1 Type of Debridement: Excisional debridement Anesthesia Used: 5% Lidocaine Gel Depth: in the subcutaneous layer Percentage of wound debrided: 100 Instrument Used: #15 blade Tissue Removed: fibrous, devitalized subcutaneous, biofilm, slough Severity: Fat Layer Exposed Amount of bleeding with debridement: Mild Bleeding Controlled with: Pressure Patient tolerated procedure: Patient tolerated procedure well - Additional Wound Wound debrided: dorsal foot/anterior ankle Wound Grade/Stage: grade 2 Type of Debridement: Excisional debridement Depth: in the subcutaneous layer Percentage of wound debrided: 100 Instrument Used: #15 blade Tissue Removed: fibrous, devitalized subcutaneous, biofilm, slough Severity: Fat Layer Exposed Amount of bleeding with debridement: Mild Bleeding Controlled with: Pressure Patient tolerated procedure: Patient tolerated procedure well - Additional Wound Wound debrided: heel Laterality: Right Wound Grade/Stage: grade 3 Type of Debridement: Excisional debridement Anesthesia Used: 5% Lidocaine Gel Depth: in the subcutaneous layer Percentage of wound debrided: 100 Instrument Used: #15 blade Tissue Removed: fibrous, devitalized subcutaneous, biofilm, slough Severity: Fat Layer Exposed Amount of bleeding with debridement: Mild Bleeding Controlled with: Pressure Patient tolerated procedure: Patient tolerated procedure well - Additional Wound Wound debrided: dorsal 2 toe Laterality: Right Wound Grade/Stage: grade 1 Type of Debridement: Excisional debridement Anesthesia Used: 5% Lidocaine Gel Depth: in the subcutaneous layer Percentage of wound debrided: 100 Instrument Used: #15 blade Tissue Removed: fibrous, devitalized subcutaneous, biofilm, slough Severity: Fat Layer Exposed Amount of bleeding with debridement: Mild Bleeding Controlled with: Pressure Patient tolerated procedure: Patient tolerated procedure well - Additional Wound Wound debrided: transmetatarsal amputation site Laterality: Left Wound Grade/Stage: grade 1 Type of Debridement: Excisional debridement Anesthesia Used: 5% Lidocaine Gel Depth: in the subcutaneous layer Percentage of wound debrided: 100 Instrument Used: #15 blade Tissue Removed: fibrous, devitalized subcutaneous, biofilm, slough Severity: Fat Layer Exposed Amount of bleeding with debridement: Mild Bleeding Controlled with: Pressure Patient tolerated procedure: Patient tolerated procedure well Assessment/Plan Assessment: right leg ulcers with fat layer exposed, stable. Left leg ulcers with fat layer exposed, stable. right dorsal foot ulcer, stable. right diabetic heel ulcer with fat exposed and medically treated for previous osteomyelitis. left chronic foot ulcer with fat layer exposed. s/p left transmetatarsal amputation with complex closure and percutaneous achilles tendon lengthening performed on 08/05/2016. This was performed secondary to abscess/septic joint/left foot infected ulceration - dehisced and ulcer now central and lateral (considered grade 1). edema/venous insufficiency. Lymphedema. diabetic neuropathy. delayed healing / malnutrition. obesity. non compliance. History of recent blood clot right lower extremity treated medically during hospital admission Plan: I discussed his case and treatment plan. Subcutaneous excisional debridement to all bilateral ulcer sites performed today as noted in the clinical panel. It is noted he completed a full course of advanced wound care product, epifix,application. To apply Regranex to the ulcer sites and continue regranex to the right heel and left transmetatarsal amputation site 12 hours at a time when he is able to coordinate this with home health or family assistance. . To maintain improved skin integrity by applying lac hydrin lotion to both legs daily. Continue circaid wraps bilateral legs daily; it is okay to apply tubigrip prior to application of CircAid foot wrap to better keep his wound dressings in place. To avoid over I do not see any signs of systemic illness or overt clinical signs of infection. I recommend getting more aggressive with his edema management and a referral was provided. I also recommend initiating a compression pump device this was started at this time as well; to continue. To continue diuretic medications per primary care physician.To elevate legs at rest. Compliance is imperative and this was discussed again today. To continue with portion control for weight loss and proper glycemic control and nutritional supplementation to optimize healing. His hemoglobin A1c went from 9.0 to 7.4. he takes a whey protein-based supplement at home and he was advised to continue in addition to a well-balanced nutritious diet. All of his questions were answered. He understands he is still at risk for limb loss. Due to the chronicity of the left lower extremity as well I recommend an updated left foot x-ray. The x-rays are reviewed without any gross fractures, dislocation, soft tissue emphysema, foreign body, or definitive osteomyelitis changes. There are some minimal reactive changes at the transmetatarsal amputation stump site. To follow-up at the wound care center in 1 week or call sooner if he has any questions or concerns.
[2017-08-12 10:40] VITALS: BP 165/65; PULSE 61; RESP 18; TEMP 35.3
--- NOTE | 2017-08-12 11:45 | PN.PCM_ITS ---
(1) Chronic ulcer of left foot with fat layer exposed Status: Chronic Current Visit: Yes Code(s): L97.522 - Non-pressure chronic ulcer of other part of left foot with fat layer exposed (2) Ulcer of right foot with fat layer exposed Status: Chronic Current Visit: Yes Code(s): L97.512 - Non-pressure chronic ulcer of other part of right foot with fat layer exposed (3) Ulcer of right lower extremity with fat layer exposed Status: Chronic Current Visit: Yes Code(s): L97.912 - Non-pressure chronic ulcer of unspecified part of right lower leg with fat layer exposed (4) Ulcer of left lower extremity with fat layer exposed Status: Resolved Current Visit: Yes Code(s): L97.922 - Non-pressure chronic ulcer of unspecified part of left lower leg with fat layer exposed (5) Lymphedema Status: Chronic Current Visit: Yes Code(s): I89.0 - Lymphedema, not elsewhere classified (6) Obesity Status: Acute Current Visit: No Code(s): E66.9 - Obesity, unspecified (7) Lower extremity edema Status: Acute Current Visit: No Code(s): R60.0 - Localized edema (8) Type 2 diabetes mellitus with diabetic polyneuropathy Status: Chronic Current Visit: No Code(s): E11.42 - Type 2 diabetes mellitus with diabetic polyneuropathy (9) Type 2 diabetes mellitus with diabetic polyneuropathy Status: Chronic Current Visit: Yes Code(s): E11.42 - Type 2 diabetes mellitus with diabetic polyneuropathy (10) Venous insufficiency Status: Chronic Current Visit: Yes Code(s): I87.2 - Venous insufficiency ( chronic) (peripheral) Type of Wound Date of Service: 08/12/17 Chief Complaint: Right heel ulcer with delayed healing. 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 right leg ulcers-healed. Right ankle ulcer with delayed healing. right second toe ulcer. left leg ulcer healed. lymphedema and continued leg swelling History of Wound: 62 year old male was seen for right heel ulcer with chronic osteomyelitis and for left foot delayed healing wound. He denies fever, chill , nausea, vomiting. He has Regranex at home and home health has been helping. He obtained his lymphedema pumps and uses them 2-3 times a day with significant edema reduction. He has not been set up with lymphedema clinic yet. Progress of Wound: Healed right and left leg ulcers. Improving and stable bilateral foot ulcers and right ankle ulcer - Physical Exam Vital Signs Temp Pulse Resp BP 95.5 F L 61 18 165/65 H 08/12/17 10:40 08/12/17 10:40 08/12/17 10:40 08/12/17 10:40 General: Alert, Oriented x3, Cooperative Extremities: No cyanosis, Capillary Refill Less than 3 Seconds, No Calf Tenderness - Negative Keara and Simmons sign bilateral, Diminished Peripheral Pulses, Edema - Trace bilateral lower extremities with increase compression pump use Skin: Ulcer/ Wound - No purulence, no erythema, streaking, no odor, no infection bilateral lower extremities. Peripheral epithelialization is noted to the right heel. Epithelialization is noted in full to bilateral leg previous ulcer sites and these are healed., - - Atrophic and hairless skin bilateral lower extremities. There is no tendon exposed to the right anterior ankle Wound Measurements and Assessment WC - Nurse 1 - General Ulcer Measurement Start: 08/05/17 11:11 Freq: Status: Active Protocol: Activity Type Activity Date Activity User E-Sign Co-Sign Detail Recorded Client Recorded Date Recorded By Document 08/12/17 10:40 DL [id number] 08/12/17 10:51 DL 08/12/17 10:40 Wound Center Nurse 1 [Ulcer Assessment] 13-right 2nd toe -Current Size (cm) - Length 0.8 -Current Size (cm) - Width 1.5 -Current Size (cm) - Depth 0.2 -Total Square Cm 1.20 -Photo Taken No -Exudate Amt Small (1-33%) -Exudate Type Serosanguineous -Wound Margin Distinct, Outline Attached -Granulation Amt Small (1-33%) -Granulation Quality [place] -Necrosis Amt Large (67-100%) -Necrotic Tissue Type Adherent Slough -Structure Exposed N/A -Texture (Susy-wound Skin Appearance) Localized Edema Scarring -Moisture (Susy-wound Skin Appearance Dry/Scaly ) -Color (Susy-wound Skin Appearance) Hemosiderin Staining -Temperature (Susy-wound Skin No Abnormality Appearance) (Pt Warm) -Ulcer Cleansing Wound Cleanser -Foul Odor after Cleansing No -Anesthetic Used 4% Lidocaine Solution #10 RIGHT ANKLE- ANTERIOR -Current Size (cm) - Length 2.8 -Current Size (cm) - Width 6.6 -Current Size (cm) - Depth 0.2 -Total Square Cm 18.48 -Photo Taken No -Exudate Amt Medium (34-66%) -Exudate Type Serosanguineous -Wound Margin Thickened -Granulation Amt Medium (34-66%) -Granulation Quality Red -Necrosis Amt Medium (34-66%) -Necrotic Tissue Type Adherent Slough -Structure Exposed N/A -Texture (Susy-wound Skin Appearance) Scarring -Moisture (Susy-wound Skin Appearance No Abnormality ) -Color (Susy-wound Skin Appearance) Hemosiderin Staining -Temperature (Susy-wound Skin No Abnormality Appearance) (Pt Warm) -Tenderness on Palpation (Susy-wound No Skin Appearance) -Ulcer Cleansing Wound Cleanser -Foul Odor after Cleansing No -Anesthetic Used 4% Lidocaine Solution 8-right cluster bernstein -Current Size (cm) - Length 0.1 -Current Size (cm) - Width 0.1 -Current Size (cm) - Depth 1.1 -Total Square Cm 0.01 -Photo Taken No -Exudate Amt None Present (0 %) -Wound Margin Flat & Intact -Granulation Amt Large (67-100%) -Granulation Quality [place] -Necrosis Amt None Present (0 %) -Structure Exposed N/A -Texture (Susy-wound Skin Appearance) Scarring -Moisture (Susy-wound Skin Appearance Dry/Scaly ) -Color (Susy-wound Skin Appearance) Hemosiderin Staining -Temperature (Susy-wound Skin No Abnormality Appearance) (Pt Warm) -Ulcer Cleansing Wound Cleanser -Foul Odor after Cleansing No -Anesthetic Used 4% Lidocaine Solution #12 Right Posterior LE -Current Size (cm) - Length 1.9 -Current Size (cm) - Width 2 -Current Size (cm) - Depth 0.2 -Total Square Cm 3.8 -Photo Taken No -Exudate Amt Small (1-33%) -Exudate Type Serosanguineous -Wound Margin Thickened -Granulation Amt Medium (34-66%) -Granulation Quality [place] -Necrosis Amt Medium (34-66%) -Necrotic Tissue Type Adherent Slough -Structure Exposed N/A -Texture (Susy-wound Skin Appearance) Scarring -Moisture (Susy-wound Skin Appearance Dry/Scaly ) -Color (Susy-wound Skin Appearance) Hemosiderin Staining -Temperature (Susy-wound Skin No Abnormality Appearance) (Pt Warm) -Ulcer Cleansing Wound Cleanser -Foul Odor after Cleansing No -Anesthetic Used 4% Lidocaine Solution #4 Left central TMA -Current Size (cm) - Length 1 -Current Size (cm) - Width 0.5 -Current Size (cm) - Depth 0.2 -Total Square Cm 0.5 -Photo Taken No -Exudate Amt Small (1-33%) -Exudate Type Serosanguineous -Wound Margin Distinct, Outline Attached -Granulation Amt Small (1-33%) -Granulation Quality [place] -Necrosis Amt Small (1-33%) -Necrotic Tissue Type Adherent Slough -Structure Exposed N/A -Texture (Susy-wound Skin Appearance) Scarring -Moisture (Susy-wound Skin Appearance Dry/Scaly ) -Color (Susy-wound Skin Appearance) Hemosiderin Staining -Temperature (Susy-wound Skin No Abnormality Appearance) (Pt Warm) -Ulcer Cleansing Wound Cleanser -Foul Odor after Cleansing No -Anesthetic Used 4% Lidocaine Solution #1 right medial heel -Current Size (cm) - Length 1 -Current Size (cm) - Width 2.7 -Current Size (cm) - Depth 0.2 -Total Square Cm 2.7 -Photo Taken No -Exudate Amt Small (1-33%) -Exudate Type Serosanguineous -Wound Margin Thickened -Granulation Amt Large (67-100%) -Granulation Quality [place] Red -Necrosis Amt Small (1-33%) -Necrotic Tissue Type Adherent Slough -Structure Exposed N/A -Texture (Susy-wound Skin Appearance) Scarring -Moisture (Susy-wound Skin Appearance Dry/Scaly ) -Color (Susy-wound Skin Appearance) No Abnormality -Temperature (Susy-wound Skin No Abnormality Appearance) (Pt Warm) -Tenderness on Palpation (Susy-wound No Skin Appearance) -Anesthetic Used 4% Lidocaine Solution [Edema Assessment] -Right Calf (cm) 49.3 -Right Ankle (cm) 29.3 -Left Calf (cm) 46.5 -Left Ankle (cm) 28.3 WC - Nurse 2 - General Ulcer CM Notes Start: 08/05/17 11:11 Freq: Status: Active Protocol: Activity Type Activity Date Activity User E-Sign Co-Sign Detail Recorded Client Recorded Date Recorded By Document 08/12/17 11:12 NORRIS [id number] 08/12/17 11:16 NORRIS 08/12/17 11:12 Wound Center Nurse 2 [Procedure/Treatment] 13-right 2nd toe -Time 11:13 -Correct Patient Yes -Correct Side, Site, Position Yes -Correct Procedure Yes -Procedure Performed Yes -Type of Procedure Debridement -Clinical Debridement Subcutaneous -Post Debridement Size (cm) - Length 0.8 -Post Debridement Size (cm) - Width 1.6 -Post Debridement Size (cm) - Depth 0.2 -Total Square Cm 1.28 -Wound/Ulcer Outcome Not Healed -Ulcer Cleansing Rinsed/ Irrigated with Saline -Foul Odor after Cleansing No -Bioengineered Tissue No -Bleeding Controlled with Pressure -Treatment Response Procedure Tolerated Well #10 RIGHT ANKLE- ANTERIOR -Time 11:14 -Correct Patient Yes -Correct Side, Site, Position Yes -Correct Procedure Yes -Procedure Performed Yes -Type of Procedure Debridement -Clinical Debridement Subcutaneous -Post Debridement Size (cm) - Length 2.8 -Post Debridement Size (cm) - Width 6.8 -Post Debridement Size (cm) - Depth 0.2 -Total Square Cm 19.04 -Wound/Ulcer Outcome Not Healed -Ulcer Cleansing Rinsed/ Irrigated with Saline -Foul Odor after Cleansing No -Bioengineered Tissue No -Bleeding Controlled with Pressure -Treatment Response Procedure Tolerated Well 8-right cluster bernstein -Correct Patient No -Correct Side, Site, Position No -Correct Procedure No -Procedure Performed No -Post Debridement Size (cm) - Length 0 -Post Debridement Size (cm) - Width 0 -Post Debridement Size (cm) - Depth 0 -Total Square Cm 0 -Wound/Ulcer Outcome Healed- Epithelialized #12 Right Posterior LE -Time 11:14 -Correct Patient Yes -Correct Side, Site, Position Yes -Correct Procedure Yes -Procedure Performed Yes -Type of Procedure Debridement -Clinical Debridement Subcutaneous -Post Debridement Size (cm) - Length 2 -Post Debridement Size (cm) - Width 2 -Post Debridement Size (cm) - Depth 0.2 -Total Square Cm 4 -Wound/Ulcer Outcome Not Healed -Ulcer Cleansing Rinsed/ Irrigated with Saline -Foul Odor after Cleansing No -Bioengineered Tissue No -Bleeding Controlled with Pressure -Treatment Response Procedure Tolerated Well #4 Left central TMA -Time 11:14 -Correct Patient Yes -Correct Side, Site, Position Yes -Correct Procedure Yes -Procedure Performed Yes -Type of Procedure Debridement -Clinical Debridement Subcutaneous -Post Debridement Size (cm) - Length 1.1 -Post Debridement Size (cm) - Width 0.5 -Post Debridement Size (cm) - Depth 0.2 -Total Square Cm 0.55 -Wound/Ulcer Outcome Not Healed -Ulcer Cleansing Rinsed/ Irrigated with Saline -Foul Odor after Cleansing No -Bioengineered Tissue No -Bleeding Controlled with Pressure -Treatment Response Procedure Tolerated Well #1 right medial heel -Time 11:15 -Correct Patient Yes -Correct Side, Site, Position Yes -Correct Procedure Yes -Procedure Performed Yes -Type of Procedure Debridement -Clinical Debridement Subcutaneous -Post Debridement Size (cm) - Length 1 -Post Debridement Size (cm) - Width 0.6 -Post Debridement Size (cm) - Depth 0.2 -Total Square Cm 0.6 -Wound/Ulcer Outcome Not Healed -Ulcer Cleansing Rinsed/ Irrigated with Saline -Foul Odor after Cleansing No -Bioengineered Tissue No -Bleeding Controlled with Pressure -Treatment Response Procedure Tolerated Well [See Physician Procedure note for Specifics] Pain Scale: 0-10 Numeric [Pain] -Is Patient Pain Free? Yes Musculoskeletal: No Tenderness to Palpation of Joints or Extremities, Muscle Wasting, - - No pain with wound manipulation bilateral. Left transmetatarsal amputation noted. Right hallux amputation noted Neurological: - - Lack of epicritic sensation light touch bilateral lower extremities Psych/Mental Status: Normal Affect, Appropriate Debridement Note Post-Debridement Measurements/Treatment WC - Nurse 2 - General Ulcer CM Notes Start: 08/05/17 11:11 Freq: Status: Active Protocol: Activity Type Activity Date Activity User E-Sign Co-Sign Detail Recorded Client Recorded Date Recorded By Document 08/05/17 11:52 [id number] 08/05/17 11:57 Document 08/12/17 11:12 [id number] [id number] 08/12/17 11:16 08/05/17 08/12/17 11:52 11:12 Wound Center Nurse 2 13-right 2nd toe -Time 12:02 11:13 -Correct Patient Yes Yes -Correct Side, Site, Position Yes Yes -Correct Procedure Yes Yes -Procedure Performed Yes Yes -Type of Procedure Debridement Debridement -Clinical Debridement Subcutaneous Subcutaneous -Post Debridement Size (cm) - Length 1.5 0.8 -Post Debridement Size (cm) - Width 1.4 1.6 -Post Debridement Size (cm) - Depth 0.1 0.2 -Total Square Cm 2.10 1.28 -Wound/Ulcer Outcome Not Healed Not Healed -Ulcer Cleansing Rinsed/ Rinsed/ Irrigated with Irrigated with Saline Saline -Foul Odor after Cleansing No No -Bioengineered Tissue No No -Bleeding Controlled with Pressure Pressure -Treatment Response Procedure Procedure Tolerated Well Tolerated Well #10 RIGHT ANKLE- ANTERIOR -Time 11:53 11:14 -Correct Patient Yes Yes -Correct Side, Site, Position Yes Yes -Correct Procedure Yes Yes -Procedure Performed Yes Yes -Type of Procedure Debridement Debridement -Clinical Debridement Subcutaneous Subcutaneous -Post Debridement Size (cm) - Length 3 2.8 -Post Debridement Size (cm) - Width 6 6.8 -Post Debridement Size (cm) - Depth 0.2 0.2 -Total Square Cm 18 19.04 -Wound/Ulcer Outcome Not Healed Not Healed -Ulcer Cleansing Rinsed/ Rinsed/ Irrigated with Irrigated with Saline Saline -Foul Odor after Cleansing No No -Bioengineered Tissue No No -Bleeding Controlled with Pressure Pressure -Treatment Response Procedure Procedure Tolerated Well Tolerated Well 8-right cluster bernstein -Time 11:53 -Correct Patient Yes No -Correct Side, Site, Position Yes No -Correct Procedure Yes No -Procedure Performed Yes No -Type of Procedure Debridement -Clinical Debridement Subcutaneous -Post Debridement Size (cm) - Length 1.8 0 -Post Debridement Size (cm) - Width 0.9 0 -Post Debridement Size (cm) - Depth 0.2 0 -Total Square Cm 1.62 0 -Wound/Ulcer Outcome Not Healed Healed- Epithelialized -Ulcer Cleansing Rinsed/ Irrigated with Saline -Foul Odor after Cleansing No -Bioengineered Tissue No -Bleeding Controlled with Pressure -Treatment Response Procedure Tolerated Well #12 Right Posterior LE -Time 11:53 11:14 -Correct Patient Yes Yes -Correct Side, Site, Position Yes Yes -Correct Procedure Yes Yes -Procedure Performed Yes Yes -Type of Procedure Debridement Debridement -Clinical Debridement Subcutaneous Subcutaneous -Post Debridement Size (cm) - Length 1.1 2 -Post Debridement Size (cm) - Width 1.1 2 -Post Debridement Size (cm) - Depth 0.2 0.2 -Total Square Cm 1.21 4 -Wound/Ulcer Outcome Not Healed Not Healed -Ulcer Cleansing Rinsed/ Rinsed/ Irrigated with Irrigated with Saline Saline -Foul Odor after Cleansing No No -Bioengineered Tissue No No -Bleeding Controlled with Pressure Pressure -Treatment Response Procedure Procedure Tolerated Well Tolerated Well #4 Left central TMA -Time 11: 11:14 -Correct Patient Yes Yes -Correct Side, Site, Position Yes Yes -Correct Procedure Yes Yes -Procedure Performed Yes Yes -Type of Procedure Debridement Debridement -Clinical Debridement Subcutaneous Subcutaneous -Post Debridement Size (cm) - Length 0.8 1.1 -Post Debridement Size (cm) - Width 0.4 0.5 -Post Debridement Size (cm) - Depth 0.3 0.2 -Total Square Cm 0.32 0.55 -Wound/Ulcer Outcome Not Healed Not Healed -Ulcer Cleansing Rinsed/ Rinsed/ Irrigated with Irrigated with Saline Saline -Foul Odor after Cleansing No No -Bioengineered Tissue No No -Bleeding Controlled with Pressure Pressure -Treatment Response Procedure Procedure Tolerated Well Tolerated Well #1 right medial heel -Time 11: 11:15 -Correct Patient Yes Yes -Correct Side, Site, Position Yes Yes -Correct Procedure Yes Yes -Procedure Performed Yes Yes -Type of Procedure Debridement Debridement -Clinical Debridement Subcutaneous Subcutaneous -Post Debridement Size (cm) - Length 1 1 -Post Debridement Size (cm) - Width 3.0 0.6 -Post Debridement Size (cm) - Depth 0.2 0.2 -Total Square Cm 3.0 0.6 -Wound/Ulcer Outcome Not Healed Not Healed -Ulcer Cleansing Rinsed/ Rinsed/ Irrigated with Irrigated with Saline Saline -Foul Odor after Cleansing No No -Bioengineered Tissue No No -Bleeding Controlled with Pressure Pressure -Treatment Response Procedure Procedure Tolerated Well Tolerated Well Pain Scale: 0-10 Numeric Is Patient Pain Free? Yes Yes Wound debrided: heel Laterality: Right - grade 3 Wound Grade/Stage: grade 3 Type of Debridement: Excisional debridement Anesthesia Used: 5% Lidocaine Gel Depth: in the subcutaneous layer Percentage of wound debrided: 100 Instrument Used: 5mm curette Tissue Removed: fibrous, devitalized subcutaneous, biofilm, slough Severity: Fat Layer Exposed Amount of bleeding with debridement: Mild Bleeding Controlled with: Pressure Patient tolerated procedure well - Additional Wound Wound debrided: dorsal 2 toe Laterality: Right Wound Grade/Stage: grade 1 Type of Debridement: Excisional debridement Anesthesia Used: 5% Lidocaine Gel Depth: in the subcutaneous layer Percentage of wound debrided: 100 Instrument Used: 5mm curette Tissue Removed: fibrous, devitalized subcutaneous, biofilm, slough Severity: Fat Layer Exposed Amount of bleeding with debridement: Mild Bleeding Controlled with: Pressure - Additional Wound Wound debrided: anterior ankle Laterality: Right Wound Grade/Stage: grade 2 Type of Debridement: Excisional debridement Anesthesia Used: 5% Lidocaine Gel Depth: in the subcutaneous layer Percentage of wound debrided: 100 Instrument Used: 5mm curette Tissue Removed: fibrous, devitalized subcutaneous, biofilm, slough Severity: Fat Layer Exposed Amount of bleeding with debridement: Mild Bleeding Controlled with: Pressure Patient tolerated procedure: Patient tolerated procedure well - Additional Wound Wound debrided: transmetatarsal amputation stump site Laterality: Left Wound Grade/Stage: grade 1 Type of Debridement: Excisional debridement Anesthesia Used: 5% Lidocaine Gel Depth: in the subcutaneous layer Percentage of wound debrided: 100 Instrument Used: 5mm curette Tissue Removed: fibrous, devitalized subcutaneous, biofilm, slough Severity: Fat Layer Exposed Amount of bleeding with debridement: Mild Bleeding Controlled with: Pressure Patient tolerated procedure: Patient tolerated procedure well Assessment/Plan Active Problems Lymphedema (Chronic) Venous insufficiency (Chronic) Ulcer of right lower extremity with fat layer exposed (Chronic) Chronic ulcer of left foot with fat layer exposed (Chronic) Ulcer of right foot with fat layer exposed (Chronic) Type 2 diabetes mellitus with diabetic polyneuropathy (Chronic) Assessment: Right heel ulcer with delayed healing. 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 right leg ulcers-healed. Right ankle ulcer with delayed healing. right second toe ulcer. left leg ulcer healed. lymphedema and continued leg swelling Plan: I discussed his case and treatment plan. Subcutaneous excisional debridement to all bilateral ulcer sites performed today as noted in the clinical panel. His healed bilateral leg ulcer sites are noted; to D/C dressings to the sites. It is noted he completed a full course of advanced wound care product, epifix,application. To apply Regranex to the ulcer sites and continue regranex to the right heel and left transmetatarsal amputation site 12 hours at a time when he is able to coordinate this with home health or family assistance. . To maintain improved skin integrity by applying lac hydrin lotion to both legs daily. Continue circaid wraps bilateral legs daily; it is okay to apply tubigrip prior to application of CircAid foot wrap to better keep his wound dressings in place. To avoid over I do not see any signs of systemic illness or overt clinical signs of infection. I recommend getting more aggressive with his edema management and a referral was provided. I also recommend initiating a compression pump device this was started at this time as well; to continue. To continue diuretic medications per primary care physician.To elevate legs at rest. Compliance is imperative and this was discussed again today. To continue with portion control for weight loss and proper glycemic control and nutritional supplementation to optimize healing. His hemoglobin A1c went from 9.0 to 7.4. he takes a whey protein-based supplement at home and he was advised to continue in addition to a well- balanced nutritious diet. I recommended he continues to decrease tension to the anterior right ankle ulcer site by returning to the cam walker boot; to weight-bear as tolerated. All of his questions were answered. He understands he is still at risk for limb loss. Due to the chronicity of the left lower extremity as well I recommend an updated left foot x-ray. The x-rays are reviewed without any gross fractures, dislocation, soft tissue emphysema, foreign body, or definitive osteomyelitis changes. There are some minimal reactive changes at the transmetatarsal amputation stump site. To follow-up at the wound care center in 1 week or call sooner if he has any questions or concerns.
[2017-08-12 13:07] LABS: Absolute Lymphocyte Count 2.76 X10^3/ul (0.83-4.51); Absolute Neutrophil Count 4.7 X10^3/uL (2.0-7.7); Basophil# 0.05 X10^3/uL; Basophil% 0.6 % (0-1); Eosinophil# 0.55 X10^3/uL; Eosinophils% 6.1 % (0-5); Hematocrit 38.3 % (40-54); Hemoglobin 12.4 g/dl (13.0-16.5); Lymphocyte # 2.76 X10^3/ul (4.0); Lymphocyte % 30.5 % (19-41); Mean Corp Hgb Conc 32.4 g/gl (32-36); Mean Corpuscular Hgb 28.4 pg (27.0-32.0); Mean Corpuscular Volume 87.6 fL (80-94); Mean Platelet Vol. 10.4 fl (6.2-12.0); Neutrophil # 4.67 X10^3/uL (2.7-7.7); Neutrophil % 51.6 % (47-70); Platelet Count 227 K/mm3 (150-450); RBC Distribution Width CV 13.6 % (11.6-14.6); Red Blood Count 4.37 M/mm3 (4.6-6.2); White Blood Count 9.1 K/mm3 (4.4-11.0)
[2017-08-12 13:09] LABS: POSITIVE COUNT NO; POSITIVE DIFFERENTIAL NO; POSITIVE MORPHOLOGY YES
[2017-08-12 13:17] LABS: Differential Indicated SCAN CRITERIA MET
[2017-08-12 13:30] LABS: ALB/GLOB Ratio 0.6 RATIO (0.9-2.4); AST(SGOT) 21 U/L (15-37); Alanine Aminotransfer ALT/SGPT 21 U/L (16-61); Albumin, Serum 3.1 g/dL (3.2-5.0); Alkaline Phosphatase 66 U/L (45-117); Anion Gap 8 (5-15); BUN 47 mg/dL (7-18); BUN/Creat Ratio 31.8 RATIO (10-20); Calcium,Total 8.9 mg/dL (8.5-10.1); Chloride 109 mmol/L (98-107); Creatinine, Serum 1.48 mg/dL (0.70-1.30); EST Glomerular Filtration Rate 51 mL/min (>60); Est Glom Filt Rate - Afr Amer 62 mL/min (>60); Globulin 5.5 g/dL (2.2-4.2); Glucose 63 mg/dL (74-106); Potassium 4.6 mmol/L (3.5-5.1); Protein, Total 8.6 g/dL (6.4-8.2); Sodium Level 141 mmol/L (136-145)
[2017-08-12 13:32] LABS: Hemoglobin A1c 9.1 % (4.2-6.3)
[2017-08-12 13:34] LABS: Erythrocyte Sedimentation Rate 100 mm/hr (0-20)
[2017-08-12 14:01] LABS: Atypical Lymphocyte RARE %
== END 2017-08-13 23:59 ==
LOC: WC 10:00
PROVIDERS: Family Provider Family Medicine; PCP Family Medicine; Visit Provider Podiatrist
DX: L97.522 Non-pressure chronic ulcer of other part of left foot with fat layer exposed (principal); L97.512 Non-pressure chronic ulcer of other part of right foot with fat layer exposed; I89.0 Lymphedema, not elsewhere classified; E66.9 Obesity, unspecified; R60.0 Localized edema; E11.42 Type 2 diabetes mellitus with diabetic polyneuropathy; I87.2 Venous insufficiency (chronic) (peripheral); L97.912 Non-pressure chronic ulcer of unspecified part of right lower leg with fat layer exposed; L97.922 Non-pressure chronic ulcer of unspecified part of left lower leg with fat layer exposed; Z89.432 Acquired absence of left foot; Z91.19 Patient's noncompliance with other medical treatment and regimen; Z79.4 Long term (current) use of insulin
CPT/HCPCS: 11042; 11045; 36415; 80053; 83036; 85025; 85652; 86140

== ENCOUNTER 2017-09-09 09:30 | Outpatient (RCR) | payer MEDICARE, MEDICAID, SELFPAY ==
[2017-08-14 00:27] VITALS: BP 165/65; PULSE 61; RESP 18; TEMP 35.3
[2017-08-26 11:38] VITALS: BP 150/68; PULSE 55; RESP 18; TEMP 35.7
--- NOTE | 2017-08-26 13:00 | PN.PCM_ITS ---
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: Chronic Current Visit: Yes Code(s): L97.512 - Non-pressure chronic ulcer of other part of right foot with fat layer exposed (2) Chronic ulcer of left foot with fat layer exposed Status: Chronic Current Visit: Yes Code(s): L97.522 - Non-pressure chronic ulcer of other part of left foot with fat layer exposed (3) Ulcer of right lower extremity with fat layer exposed Status: Chronic Current Visit: Yes Code(s): L97.912 - Non-pressure chronic ulcer of unspecified part of right lower leg with fat layer exposed (4) Peripheral vascular disease Status: Suspected Current Visit: Yes Code(s): I73.9 - Peripheral vascular disease, unspecified (5) Lymphedema Status: Chronic Current Visit: Yes Code(s): I89.0 - Lymphedema, not elsewhere classified (6) Venous insufficiency Status: Chronic Current Visit: Yes Code(s): I87.2 - Venous insufficiency ( chronic) (peripheral) (7) Obesity Status: Acute Current Visit: Yes Code(s): E66.9 - Obesity, unspecified (8) Type 2 diabetes mellitus with diabetic polyneuropathy Status: Chronic Current Visit: Yes Code(s): E11.42 - Type 2 diabetes mellitus with diabetic polyneuropathy (9) Type 2 diabetes mellitus with diabetic polyneuropathy Status: Chronic Current Visit: Yes Code(s): E11.42 - Type 2 diabetes mellitus with diabetic polyneuropathy (10) Malnutrition Status: Chronic Current Visit: Yes Code(s): E46 - Unspecified protein- calorie malnutrition (11) Obesity Status: Chronic Current Visit: Yes Code(s): E66.9 - Obesity, unspecified Type of Wound Date of Service: 08/26/17 Chief Complaint: Right heel ulcer with delayed healing. 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 right leg ulcers- returned. Right ankle ulcer with delayed healing. right second toe ulcer. left leg ulcer healed. lymphedema and continued leg swelling History of Wound: 62 year old male was seen for right heel ulcer with chronic osteomyelitis, left foot delayed healing wound, right 2nd toe ulcer, right leg ulcer, and right ankle ulcer. He denies fever, chill, nausea, vomiting. He has Regranex at home and home health has been helping. He uses the compession pump 2-3 times a day with significant edema reduction. He has wound to the leg again (right). Progress of Wound: right and left leg ulcers. Improving and stable bilateral foot ulcers and right ankle ulcer. stable right foot ulcer (heel and 2nd toe) - Physical Exam Vital Signs Temp Pulse Resp BP 96.3 F L 55 L 18 150/68 H 08/26/17 11:38 08/26/17 11:38 08/26/17 11:38 08/26/17 11:38 General: Alert, Oriented x3, Cooperative Extremities: No cyanosis, Capillary Refill Less than 3 Seconds, No Calf Tenderness - Negative Keara and Simmons sign bilateral, Diminished Peripheral Pulses, Edema - Bilateral lower extremities Skin: Ulcer/ Wound - No purulence, no erythema, streaking, odor, no acute infection bilateral lower extremities. There is no exposed bone or tendon noted bilateral. The skin is atrophic. There is no wound to the anterior right leg Wound Measurements and Assessment WC - Nurse 1 - General Ulcer Measurement Start: 08/26/17 11:38 Freq: Status: Active Protocol: Activity Type Activity Date Activity User E-Sign Co-Sign Detail Recorded Client Recorded Date Recorded By Document 08/26/17 11:38 RB [id number] 08/26/17 12:03 RB 08/26/17 11:38 Wound Center Nurse 1 [Ulcer Assessment] 13-right 2nd toe -Combined with other wound No -Current Size (cm) - Length 1 -Current Size (cm) - Width 1.2 -Current Size (cm) - Depth 0.2 -Total Square Cm 1.2 -Photo Taken No -Epithelialization Small 1-33% -Tunneling No -Undermining/Tunneling No -Circular Undermining No -Classification - Thickness Full Thickness without Exposed Support Structure -Exudate Amt Small (1-33%) -Exudate Type Serosanguineous -Wound Margin Distinct, Outline Attached -Granulation Amt Medium (34-66%) -Granulation Quality Red -Slough/Fibrin Yes -Necrosis Amt Medium (34-66%) -Necrotic Tissue Type Adherent Slough -Structure Exposed N/A -Texture (Susy-wound Skin Appearance) Assessed -Moisture (Susy-wound Skin Appearance Assessed ) -Color (Susy-wound Skin Appearance) Assessed -Temperature (Susy-wound Skin No Abnormality Appearance) (Pt Warm) -Tenderness on Palpation (Susy-wound No Skin Appearance) -Ulcer Cleansing Wound Cleanser -Foul Odor after Cleansing No -Anesthetic Used 4% Lidocaine Solution #10 RIGHT ANKLE- ANTERIOR -Combined with other wound No -Current Size (cm) - Length 2.2 -Current Size (cm) - Width 6 -Current Size (cm) - Depth 0.1 -Total Square Cm 13.2 -Photo Taken No -Tunneling No -Undermining/Tunneling No -Circular Undermining No -Classification - Thickness Full Thickness without Exposed Support Structure -Exudate Amt Medium (34-66%) -Exudate Type Serosanguineous -Wound Margin Distinct, Outline Attached -Granulation Amt Large (67-100%) -Granulation Quality Red -Slough/Fibrin Yes -Necrosis Amt Small (1-33%) -Necrotic Tissue Type Adherent Slough -Structure Exposed N/A -Texture (Susy-wound Skin Appearance) Assessed -Moisture (Susy-wound Skin Appearance Assessed ) -Color (Susy-wound Skin Appearance) Assessed -Temperature (Susy-wound Skin No Abnormality Appearance) (Pt Warm) -Tenderness on Palpation (Susy-wound No Skin Appearance) -Ulcer Cleansing Wound Cleanser -Foul Odor after Cleansing No -Anesthetic Used 4% Lidocaine Solution #12 Right Posterior LE -Combined with other wound No -Current Size (cm) - Length 1.9 -Current Size (cm) - Width 1.5 -Current Size (cm) - Depth 0.1 -Total Square Cm 2.85 -Photo Taken No -Tunneling No -Undermining/Tunneling No -Circular Undermining No -Classification - Thickness Full Thickness without Exposed Support Structure -Exudate Amt Small (1-33%) -Exudate Type Serosanguineous -Wound Margin Distinct, Outline Attached -Granulation Amt Medium (34-66%) -Granulation Quality Red -Slough/Fibrin Yes -Necrosis Amt Small (1-33%) -Necrotic Tissue Type Adherent Slough -Structure Exposed N/A -Texture (Susy-wound Skin Appearance) Assessed -Moisture (Susy-wound Skin Appearance Assessed ) -Color (Susy-wound Skin Appearance) Assessed -Temperature (Susy-wound Skin No Abnormality Appearance) (Pt Warm) -Tenderness on Palpation (Susy-wound No Skin Appearance) -Ulcer Cleansing Rinsed/ Irrigated with Saline -Foul Odor after Cleansing No -Anesthetic Used 4% Lidocaine Solution #4 Left central TMA -Combined with other wound No -Current Size (cm) - Length 1 -Current Size (cm) - Width 0.3 -Current Size (cm) - Depth 0.2 -Total Square Cm 0.3 -Photo Taken No -Tunneling No -Undermining/Tunneling No -Circular Undermining No -Classification - Thickness Full Thickness without Exposed Support Structure -Exudate Amt Small (1-33%) -Exudate Type Serosanguineous -Wound Margin Distinct, Outline Attached -Granulation Amt Medium (34-66%) -Granulation Quality Red -Slough/Fibrin Yes -Necrosis Amt Small (1-33%) -Necrotic Tissue Type Adherent Slough -Structure Exposed N/A -Texture (Susy-wound Skin Appearance) Assessed -Moisture (Susy-wound Skin Appearance Assessed ) -Color (Susy-wound Skin Appearance) Assessed -Temperature (Susy-wound Skin No Abnormality Appearance) (Pt Warm) -Tenderness on Palpation (Susy-wound No Skin Appearance) -Ulcer Cleansing Wound Cleanser -Foul Odor after Cleansing No -Anesthetic Used 4% Lidocaine Solution #1 right medial heel -Combined with other wound No -Current Size (cm) - Length 1.2 -Current Size (cm) - Width 2.7 -Current Size (cm) - Depth 0.4 -Total Square Cm 3.24 -Photo Taken No -Tunneling No -Undermining/Tunneling No -Circular Undermining No -Classification - Thickness Full Thickness without Exposed Support Structure -Exudate Amt Medium (34-66%) -Exudate Type Serosanguineous -Wound Margin Distinct, Outline Attached -Granulation Amt Medium (34-66%) -Granulation Quality Red -Slough/Fibrin No -Necrosis Amt Small (1-33%) -Necrotic Tissue Type Adherent Slough -Structure Exposed N/A -Texture (Susy-wound Skin Appearance) Assessed -Moisture (Susy-wound Skin Appearance Assessed ) -Color (Susy-wound Skin Appearance) Assessed -Temperature (Susy-wound Skin No Abnormality Appearance) (Pt Warm) -Tenderness on Palpation (Susy-wound No Skin Appearance) -Ulcer Cleansing Rinsed/ Irrigated with Saline -Foul Odor after Cleansing No -Anesthetic Used 4% Lidocaine Solution [Edema Assessment] -Lower Limb Edema Present Yes -Right Calf (cm) 50.6 -Right Ankle (cm) 29.5 -Left Calf (cm) 50.5 -Left Ankle (cm) 29.5 WC - Nurse 2 - General Ulcer CM Notes Start: 08/26/17 11:38 Freq: Status: Active Protocol: Activity Type Activity Date Activity User E-Sign Co-Sign Detail Recorded Client Recorded Date Recorded By Document 08/26/17 12:10 NORRIS [id number] 08/26/17 12:13 NORRIS 08/26/17 12:10 Wound Center Nurse 2 [Procedure/Treatment] 13-right 2nd toe -Time 12:10 -Correct Patient Yes -Correct Side, Site, Position Yes -Correct Procedure Yes -Procedure Performed Yes -Type of Procedure Debridement -Clinical Debridement Subcutaneous -Post Debridement Size (cm) - Length 1.1 -Post Debridement Size (cm) - Width 1.2 -Post Debridement Size (cm) - Depth 0.2 -Total Square Cm 1.32 -Wound/Ulcer Outcome Not Healed -Ulcer Cleansing Rinsed/ Irrigated with Saline -Foul Odor after Cleansing No -Bioengineered Tissue No -Bleeding Controlled with Pressure -Treatment Response Procedure Tolerated Well #10 RIGHT ANKLE- ANTERIOR -Time 12:11 -Correct Patient Yes -Correct Side, Site, Position Yes -Correct Procedure Yes -Procedure Performed Yes -Type of Procedure Debridement -Clinical Debridement Subcutaneous -Post Debridement Size (cm) - Length 2.3 -Post Debridement Size (cm) - Width 6 -Post Debridement Size (cm) - Depth 0.1 -Total Square Cm 13.8 -Wound/Ulcer Outcome Not Healed -Ulcer Cleansing Rinsed/ Irrigated with Saline -Foul Odor after Cleansing No -Bioengineered Tissue No -Bleeding Controlled with Pressure -Treatment Response Procedure Tolerated Well #12 Right Posterior LE -Time 12:11 -Correct Patient Yes -Correct Side, Site, Position Yes -Correct Procedure Yes -Procedure Performed Yes -Type of Procedure Debridement -Clinical Debridement Subcutaneous -Post Debridement Size (cm) - Length 2.0 -Post Debridement Size (cm) - Width 1.6 -Post Debridement Size (cm) - Depth 0.1 -Total Square Cm 3.20 -Wound/Ulcer Outcome Not Healed -Ulcer Cleansing Rinsed/ Irrigated with Saline -Foul Odor after Cleansing No -Bioengineered Tissue No -Bleeding Controlled with Pressure -Treatment Response Procedure Tolerated Well #4 Left central TMA -Time 12:12 -Correct Patient Yes -Correct Side, Site, Position Yes -Correct Procedure Yes -Procedure Performed Yes -Type of Procedure Debridement -Clinical Debridement Subcutaneous -Post Debridement Size (cm) - Length 1 -Post Debridement Size (cm) - Width 0.4 -Post Debridement Size (cm) - Depth 0.2 -Total Square Cm 0.4 -Wound/Ulcer Outcome Not Healed -Ulcer Cleansing Rinsed/ Irrigated with Saline -Foul Odor after Cleansing No -Bioengineered Tissue No -Bleeding Controlled with Pressure -Treatment Response Procedure Tolerated Well #1 right medial heel -Time 12:12 -Correct Patient Yes -Correct Side, Site, Position Yes -Correct Procedure Yes -Procedure Performed Yes -Type of Procedure Debridement -Clinical Debridement Subcutaneous -Post Debridement Size (cm) - Length 1.3 -Post Debridement Size (cm) - Width 2.8 -Post Debridement Size (cm) - Depth 0.4 -Total Square Cm 3.64 -Wound/Ulcer Outcome Not Healed -Ulcer Cleansing Rinsed/ Irrigated with Saline -Foul Odor after Cleansing No -Bioengineered Tissue No -Bleeding Controlled with Pressure -Treatment Response Procedure Tolerated Well [See Physician Procedure note for Specifics] Pain Scale: 0-10 Numeric [Pain] -Is Patient Pain Free? Yes Musculoskeletal: No Tenderness to Palpation of Joints or Extremities, Muscle Wasting, - - Compartments bilateral lower extremities remain soft Neurological: - - Lack of epicritic sensation light touch bilateral lower extremities Psych/Mental Status: Normal Affect, Appropriate Debridement Note Post-Debridement Measurements/Treatment WC - Nurse 2 - General Ulcer CM Notes Start: 08/26/17 11:38 Freq: Status: Active Protocol: Activity Type Activity Date Activity User E-Sign Co-Sign Detail Recorded Client Recorded Date Recorded By Document 08/26/17 12:10 NORRIS [id number] 08/26/17 12:13 NORRIS 08/26/17 12:10 Wound Center Nurse 2 13-right 2nd toe -Time 12:10 -Correct Patient Yes -Correct Side, Site, Position Yes -Correct Procedure Yes -Procedure Performed Yes -Type of Procedure Debridement -Clinical Debridement Subcutaneous -Post Debridement Size (cm) - Length 1.1 -Post Debridement Size (cm) - Width 1.2 -Post Debridement Size (cm) - Depth 0.2 -Total Square Cm 1.32 -Wound/Ulcer Outcome Not Healed -Ulcer Cleansing Rinsed/ Irrigated with Saline -Foul Odor after Cleansing No -Bioengineered Tissue No -Bleeding Controlled with Pressure -Treatment Response Procedure Tolerated Well #10 RIGHT ANKLE- ANTERIOR -Time 12:11 -Correct Patient Yes -Correct Side, Site, Position Yes -Correct Procedure Yes -Procedure Performed Yes -Type of Procedure Debridement -Clinical Debridement Subcutaneous -Post Debridement Size (cm) - Length 2.3 -Post Debridement Size (cm) - Width 6 -Post Debridement Size (cm) - Depth 0.1 -Total Square Cm 13.8 -Wound/Ulcer Outcome Not Healed -Ulcer Cleansing Rinsed/ Irrigated with Saline -Foul Odor after Cleansing No -Bioengineered Tissue No -Bleeding Controlled with Pressure -Treatment Response Procedure Tolerated Well #12 Right Posterior LE -Time 12:11 -Correct Patient Yes -Correct Side, Site, Position Yes -Correct Procedure Yes -Procedure Performed Yes -Type of Procedure Debridement -Clinical Debridement Subcutaneous -Post Debridement Size (cm) - Length 2.0 -Post Debridement Size (cm) - Width 1.6 -Post Debridement Size (cm) - Depth 0.1 -Total Square Cm 3.20 -Wound/Ulcer Outcome Not Healed -Ulcer Cleansing Rinsed/ Irrigated with Saline -Foul Odor after Cleansing No -Bioengineered Tissue No -Bleeding Controlled with Pressure -Treatment Response Procedure Tolerated Well #4 Left central TMA -Time 12:12 -Correct Patient Yes -Correct Side, Site, Position Yes -Correct Procedure Yes -Procedure Performed Yes -Type of Procedure Debridement -Clinical Debridement Subcutaneous -Post Debridement Size (cm) - Length 1 -Post Debridement Size (cm) - Width 0.4 -Post Debridement Size (cm) - Depth 0.2 -Total Square Cm 0.4 -Wound/Ulcer Outcome Not Healed -Ulcer Cleansing Rinsed/ Irrigated with Saline -Foul Odor after Cleansing No -Bioengineered Tissue No -Bleeding Controlled with Pressure -Treatment Response Procedure Tolerated Well #1 right medial heel -Time 12:12 -Correct Patient Yes -Correct Side, Site, Position Yes -Correct Procedure Yes -Procedure Performed Yes -Type of Procedure Debridement -Clinical Debridement Subcutaneous -Post Debridement Size (cm) - Length 1.3 -Post Debridement Size (cm) - Width 2.8 -Post Debridement Size (cm) - Depth 0.4 -Total Square Cm 3.64 -Wound/Ulcer Outcome Not Healed -Ulcer Cleansing Rinsed/ Irrigated with Saline -Foul Odor after Cleansing No -Bioengineered Tissue No -Bleeding Controlled with Pressure -Treatment Response Procedure Tolerated Well Pain Scale: 0-10 Numeric Is Patient Pain Free? Yes Wound debrided: heel Laterality: Right Wound Grade/Stage: grade 3 Type of Debridement: Excisional debridement Anesthesia Used: 5% Lidocaine Gel Depth: in the subcutaneous layer Percentage of wound debrided: 100 Tissue Removed: fibrous, devitalized subcutaneous, biofilm, slough Severity: Fat Layer Exposed Amount of bleeding with debridement: Mild Bleeding Controlled with: Pressure Patient tolerated procedure well - Additional Wound Wound debrided: dorsal 2 toe Laterality: Right Wound Grade/Stage: grade 1 Type of Debridement: Excisional debridement Anesthesia Used: 5% Lidocaine Gel Depth: in the subcutaneous layer Percentage of wound debrided: 100 Instrument Used: #15 blade Tissue Removed: fibrous, devitalized subcutaneous, biofilm, slough Severity: Fat Layer Exposed Amount of bleeding with debridement: Mild Bleeding Controlled with: Pressure Patient tolerated procedure: Patient tolerated procedure well - Additional Wound Wound debrided: anterior ankle Laterality: Right Wound Grade/Stage: grade 1 Type of Debridement: Excisional debridement Anesthesia Used: 5% Lidocaine Gel Depth: in the subcutaneous layer Percentage of wound debrided: 100 Instrument Used: #15 blade Tissue Removed: fibrous, devitalized subcutaneous, biofilm, slough Severity: Fat Layer Exposed Amount of bleeding with debridement: Mild Bleeding Controlled with: Pressure Patient tolerated procedure: Patient tolerated procedure well - Additional Wound Wound debrided: anterior leg Laterality: Right Wound Grade/Stage: grade 1 Type of Debridement: Excisional debridement Anesthesia Used: 5% Lidocaine Gel Depth: in the subcutaneous layer Percentage of wound debrided: 100 Instrument Used: #15 blade Tissue Removed: fibrous, devitalized subcutaneous, biofilm, slough Severity: Fat Layer Exposed Amount of bleeding with debridement: Mild Bleeding Controlled with: Pressure Patient tolerated procedure: Patient tolerated procedure well - Additional Wound Wound debrided: foot Laterality: Left Wound Grade/Stage: grade 1 Type of Debridement: Excisional debridement Anesthesia Used: 5% Lidocaine Gel Depth: in the subcutaneous layer Percentage of wound debrided: 100 Instrument Used: #15 blade Tissue Removed: fibrous, devitalized subcutaneous, biofilm, slough Severity: Fat Layer Exposed Amount of bleeding with debridement: Mild Bleeding Controlled with: Pressure Patient tolerated procedure: Patient tolerated procedure well Assessment/Plan Active Problems Lymphedema (Chronic) Venous insufficiency (Chronic) Obesity (Acute) Type 2 diabetes mellitus with diabetic polyneuropathy (Chronic) Ulcer of right lower extremity with fat layer exposed (Chronic) Chronic ulcer of left foot with fat layer exposed (Chronic) Ulcer of right foot with fat layer exposed (Chronic) Type 2 diabetes mellitus with diabetic polyneuropathy (Chronic) Malnutrition (Chronic) Obesity (Chronic) Assessment: Right heel ulcer with delayed healing. 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 right leg ulcers-returned. Right ankle ulcer with delayed healing. right second toe ulcer. left leg ulcer healed. lymphedema and continued leg swelling. rule out peripheral vacular disease and venous insufficiency Plan: I discussed his case and treatment plan. Subcutaneous excisional debridement to all bilateral ulcer sites performed today as noted in the clinical panel. It is noted he has some ulcers that have returned. He was reassured there are no local signs of infection noted today. It is noted he completed a full course of advanced wound care product, epifix,application. To apply Regranex to the ulcer sites 12 hours at a time when he is able to coordinate this with home health or family assistance. . To maintain improved skin integrity by applying lac hydrin lotion to both legs daily. Continue circaid wraps bilateral legs daily; it is okay to apply tubigrip prior to application of CircAid foot wrap to better keep his wound dressings in place. To continue compression pump device daily; he is doing well with this. To continue diuretic medications per primary care physician.To elevate legs at rest. Compliance is imperative and this was discussed again today. To continue with portion control for weight loss and proper glycemic control and nutritional supplementation to optimize healing. His hemoglobin A1c went from 9.0 to 7.4. I recommended he continues to decrease tension to the anterior right ankle ulcer site by returning to the cam walker boot; to weight-bear as tolerated. All of his questions were answered. He understands he is still at risk for limb loss. Compliance was discussed with this and it is noted he presents with 2 surgical shoes today. Due to the chronicity of the left lower extremity as well I recommend an updated left foot x-ray. The x-rays are reviewed without any gross fractures, dislocation, soft tissue emphysema, foreign body, or definitive osteomyelitis changes. There are some minimal reactive changes at the transmetatarsal amputation stump site. His venous and arterial vascular studies are over one year old. These are reordered today to assess his perfusion and edema status. This is scheduled for next 08/19/2017 in the afternoon. He will likely follow up here in the morning and proceed to get the test after. To follow-up at the wound care center in 1 week or call sooner if he has any questions or concerns.
[2017-09-02 11:12] VITALS: BP 141/68; PULSE 58; RESP 18; TEMP 36.1
--- NOTE | 2017-09-02 12:17 | PCM.WC.PN ---
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: Chronic Current Visit: Yes Code(s): L97.512 - Non-pressure chronic ulcer of other part of right foot with fat layer exposed (2) Chronic ulcer of left foot with fat layer exposed Status: Chronic Current Visit: Yes Code(s): L97.522 - Non-pressure chronic ulcer of other part of left foot with fat layer exposed (3) Ulcer of right lower extremity with fat layer exposed Status: Chronic Current Visit: Yes Code(s): L97.912 - Non-pressure chronic ulcer of unspecified part of right lower leg with fat layer exposed (4) Peripheral vascular disease Status: Suspected Current Visit: Yes Code(s): I73.9 - Peripheral vascular disease, unspecified (5) Lymphedema Status: Chronic Current Visit: Yes Code(s): I89.0 - Lymphedema, not elsewhere classified (6) Venous insufficiency Status: Chronic Current Visit: Yes Code(s): I87.2 - Venous insufficiency (chronic) (peripheral) (7) Obesity Status: Acute Current Visit: Yes Code(s): E66.9 - Obesity, unspecified (8) Type 2 diabetes mellitus with diabetic polyneuropathy Status: Chronic Current Visit: Yes Code(s): E11.42 - Type 2 diabetes mellitus with diabetic polyneuropathy (9) Malnutrition Status: Chronic Current Visit: Yes Code(s): E46 - Unspecified protein-calorie malnutrition (10) Obesity Status: Chronic Current Visit: Yes Code(s): E66.9 - Obesity, unspecified Type of Wound Date of Service: 09/02/17 Chief Complaint: Right heel ulcer with delayed healing. 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 right leg ulcers. Right ankle ulcer with delayed healing. right second toe ulcer. lymphedema and continued leg swelling History of Wound: 62 year old male was seen for right heel ulcer with chronic osteomyelitis, left foot delayed healing wound, right 2nd toe ulcer, right leg ulcer, and right ankle ulcer. He denies fever, chill, nausea, vomiting. He has Regranex at home and home health has been helping. He uses the compession pump 2-3 times a day with significant edema reduction. He is scheduled for updated noninvasive vascular study this afternoon. He tries to bathe every 1-2 days at home in his kitchen. He did not set up lymphedema clinic referral yet. He relates he is getting a phone from the [employer] soon and will be able to utilize this to help him coordinate appointments. Progress of Wound: right leg ulcers table. Improving and stable bilateral foot ulcers and right ankle ulcer. stable right foot ulcer (heel and 2nd toe). Stable left foot ulcer - Physical Exam Vital Signs Temp Pulse Resp BP 97 F L 58 L 18 141/68 H 09/02/17 11:12 09/02/17 11:12 09/02/17 11:12 09/02/17 11:12 General: Alert, Oriented x3, Cooperative Extremities: No cyanosis, Capillary Refill Less than 3 Seconds, No Calf Tenderness, Diminished Peripheral Pulses, Edema, - - Left transmetatarsal amputation. Right hallux amputation. Skin: Ulcer/ Wound - No purulence, no erythema, streaking, odor, no infection. There is no deep capsular bone exposed tissue today. Atrophic skin bilateral lower extremities. Improved granulation tissue to all sites. Wound Measurements and Assessment WC - Nurse 1 - General Ulcer Measurement Start: 08/26/17 11:38 Freq: Status: Active Protocol: Activity Type Activity Date Activity User E-Sign Co-Sign Detail Recorded Client Recorded Date Recorded By Document 09/02/17 11:12 [id number] 09/02/17 11:25 RB 09/02/17 11:12 Wound Center Nurse 1 [Ulcer Assessment] 13-right 2nd toe -Combined with other wound No -Current Size (cm) - Length 1 -Current Size (cm) - Width 1.3 -Current Size (cm) - Depth 0.2 -Total Square Cm 1.3 -Photo Taken No -Tunneling No -Undermining/Tunneling No -Circular Undermining No -Classification - Thickness Full Thickness without Exposed Support Structure -Exudate Amt Small (1-33%) -Exudate Type Serosanguineous -Wound Margin Distinct, Outline Attached -Granulation Amt Medium (34-66%) -Granulation Quality Cassandra -Slough/Fibrin Yes -Necrosis Amt Small (1-33%) -Necrotic Tissue Type Adherent Slough -Structure Exposed N/A -Texture (Susy-wound Skin Appearance) Assessed -Moisture (Susy-wound Skin Appearance Assessed ) Dry/Scaly -Color (Susy-wound Skin Appearance) Assessed -Temperature (Susy-wound Skin No Abnormality Appearance) (Pt Warm) -Tenderness on Palpation (Susy-wound No Skin Appearance) -Ulcer Cleansing Wound Cleanser -Foul Odor after Cleansing No -Anesthetic Used 4% Lidocaine Solution #10 RIGHT ANKLE- ANTERIOR -Combined with other wound No -Current Size (cm) - Length 4 -Current Size (cm) - Width 6.5 -Current Size (cm) - Depth 0.2 -Total Square Cm 26.0 -Photo Taken No -Tunneling No -Undermining/Tunneling No -Circular Undermining No -Classification - Thickness Full Thickness without Exposed Support Structure -Exudate Amt Medium (34-66%) -Exudate Type Serosanguineous -Wound Margin Thickened & Rolled Under -Granulation Amt Medium (34-66%) -Granulation Quality Cassandra -Slough/Fibrin Yes -Necrosis Amt Small (1-33%) -Necrotic Tissue Type Adherent Slough -Structure Exposed N/A -Texture (Susy-wound Skin Appearance) Assessed -Moisture (Susy-wound Skin Appearance Assessed ) -Color (Susy-wound Skin Appearance) Assessed -Temperature (Susy-wound Skin No Abnormality Appearance) (Pt Warm) -Tenderness on Palpation (Susy-wound No Skin Appearance) -Ulcer Cleansing Wound Cleanser -Foul Odor after Cleansing No -Anesthetic Used 4% Lidocaine Solution #4 Left central TMA -Combined with other wound No -Current Size (cm) - Length 0.5 -Current Size (cm) - Width 0.3 -Current Size (cm) - Depth 0.2 -Total Square Cm 0.15 -Photo Taken No -Tunneling No -Undermining/Tunneling No -Circular Undermining No -Classification - Thickness Full Thickness without Exposed Support Structure -Exudate Amt Small (1-33%) -Exudate Type Serosanguineous -Wound Margin Thickened & Rolled Under -Granulation Amt Medium (34-66%) -Granulation Quality Cassandra -Slough/Fibrin Yes -Necrosis Amt Medium (34-66%) -Necrotic Tissue Type Adherent Slough -Structure Exposed N/A -Texture (Susy-wound Skin Appearance) Assessed -Moisture (Susy-wound Skin Appearance Assessed ) -Color (Susy-wound Skin Appearance) Assessed -Temperature (Susy-wound Skin No Abnormality Appearance) (Pt Warm) -Tenderness on Palpation (Susy-wound No Skin Appearance) -Ulcer Cleansing Wound Cleanser -Foul Odor after Cleansing No -Anesthetic Used 5% Lidocaine Gel #1 right medial heel -Combined with other wound No -Current Size (cm) - Length 1.2 -Current Size (cm) - Width 2 -Current Size (cm) - Depth 0.2 -Total Square Cm 2.4 -Photo Taken No -Tunneling No -Undermining/Tunneling No -Circular Undermining No -Classification - Thickness Full Thickness without Exposed Support Structure -Exudate Amt Small (1-33%) -Exudate Type Serosanguineous -Wound Margin Distinct, Outline Attached -Granulation Amt Medium (34-66%) -Granulation Quality Cassandra -Slough/Fibrin Yes -Necrosis Amt Small (1-33%) -Necrotic Tissue Type Adherent Slough -Structure Exposed N/A -Texture (Susy-wound Skin Appearance) Assessed Callus -Moisture (Susy-wound Skin Appearance Assessed ) -Color (Susy-wound Skin Appearance) Assessed -Temperature (Susy-wound Skin No Abnormality Appearance) (Pt Warm) -Tenderness on Palpation (Susy-wound No Skin Appearance) -Ulcer Cleansing Rinsed/ Irrigated with Saline -Foul Odor after Cleansing No -Anesthetic Used 4% Lidocaine Solution [Edema Assessment] -Lower Limb Edema Present Yes -Point of measurement (cm from the 52 medial instep) -Point of Measurement (cm from the 29.5 medial instep) -Left Calf (cm) 49.5 -Left Ankle (cm) 29.5 WC - Nurse 2 - General Ulcer CM Notes Start: 08/26/17 11:38 Freq: Status: Active Protocol: Activity Type Activity Date Activity User E-Sign Co-Sign Detail Recorded Client Recorded Date Recorded By Document 09/02/17 12:01 [email or web address] [id number] 09/02/17 12:04 09/02/17 12:01 Wound Center Nurse 2 [Procedure/Treatment] 13-right 2nd toe -Time 12:01 -Correct Patient Yes -Correct Side, Site, Position Yes -Correct Procedure Yes -Procedure Performed Yes -Type of Procedure Debridement -Clinical Debridement Subcutaneous -Post Debridement Size (cm) - Length 1.1 -Post Debridement Size (cm) - Width 1.3 -Post Debridement Size (cm) - Depth 0.2 -Total Square Cm 1.43 -Wound/Ulcer Outcome Not Healed -Ulcer Cleansing Rinsed/ Irrigated with Saline -Foul Odor after Cleansing No -Bioengineered Tissue No -Bleeding Controlled with Pressure -Treatment Response Procedure Tolerated Well #10 RIGHT ANKLE- ANTERIOR -Time 12:02 -Correct Patient Yes -Correct Side, Site, Position Yes -Correct Procedure Yes -Procedure Performed Yes -Type of Procedure Debridement -Clinical Debridement Subcutaneous -Post Debridement Size (cm) - Length 4.1 -Post Debridement Size (cm) - Width 6.6 -Post Debridement Size (cm) - Depth 0.2 -Total Square Cm 27.06 -Wound/Ulcer Outcome Not Healed -Ulcer Cleansing Rinsed/ Irrigated with Saline -Foul Odor after Cleansing No -Bioengineered Tissue No -Bleeding Controlled with Pressure -Treatment Response Procedure Tolerated Well 8-right cluster bernstein -Time 12:03 -Correct Patient Yes -Correct Side, Site, Position Yes -Correct Procedure Yes -Procedure Performed Yes -Type of Procedure Debridement -Clinical Debridement Subcutaneous -Post Debridement Size (cm) - Length 6 -Post Debridement Size (cm) - Width 2 -Post Debridement Size (cm) - Depth 0.1 -Total Square Cm 12 -Wound/Ulcer Outcome Not Healed -Ulcer Cleansing Rinsed/ Irrigated with Saline -Foul Odor after Cleansing No -Bioengineered Tissue No -Bleeding Controlled with Pressure -Treatment Response Procedure Tolerated Well #4 Left central TMA -Time 12:02 -Correct Patient Yes -Correct Side, Site, Position Yes -Correct Procedure Yes -Procedure Performed Yes -Type of Procedure Debridement -Clinical Debridement Subcutaneous -Post Debridement Size (cm) - Length 0.6 -Post Debridement Size (cm) - Width 0.4 -Post Debridement Size (cm) - Depth 0.2 -Total Square Cm 0.24 -Wound/Ulcer Outcome Not Healed -Ulcer Cleansing Rinsed/ Irrigated with Saline -Foul Odor after Cleansing No -Bioengineered Tissue No -Bleeding Controlled with Pressure -Treatment Response Procedure Tolerated Well #1 right medial heel -Time 12:02 -Correct Patient Yes -Correct Side, Site, Position Yes -Correct Procedure Yes -Procedure Performed Yes -Type of Procedure Debridement -Clinical Debridement Subcutaneous -Post Debridement Size (cm) - Length 1.3 -Post Debridement Size (cm) - Width 2.1 -Post Debridement Size (cm) - Depth 0.2 -Total Square Cm 2.73 -Wound/Ulcer Outcome Not Healed -Ulcer Cleansing Rinsed/ Irrigated with Saline -Foul Odor after Cleansing No -Bioengineered Tissue No -Bleeding Controlled with Pressure -Treatment Response Procedure Tolerated Well [See Physician Procedure note for Specifics] Pain Scale: 0-10 Numeric [Pain] -Is Patient Pain Free? Yes Musculoskeletal: No Tenderness to Palpation of Joints or Extremities, Muscle Wasting, - - Negative Keara and Simmons sign bilateral Neurological: - - Lack of epicritic sensation light touch bilateral lower extremities Psych/Mental Status: Normal Affect, Appropriate Debridement Note Post-Debridement Measurements/Treatment WC - Nurse 2 - General Ulcer CM Notes Start: 08/26/17 11:38 Freq: Status: Active Protocol: Activity Type Activity Date Activity User E-Sign Co-Sign Detail Recorded Client Recorded Date Recorded By Document 08/26/17 12:10 [id number] 08/26/17 12:13 Document 09/02/17 12:01 [id number] 09/02/17 12:04 08/26/17 09/02/17 12:10 12:01 Wound Center Nurse 2 13-right 2nd toe -Time 12:10 12:01 -Correct Patient Yes Yes -Correct Side, Site, Position Yes Yes -Correct Procedure Yes Yes -Procedure Performed Yes Yes -Type of Procedure Debridement Debridement -Clinical Debridement Subcutaneous Subcutaneous -Post Debridement Size (cm) - Length 1.1 1.1 -Post Debridement Size (cm) - Width 1.2 1.3 -Post Debridement Size (cm) - Depth 0.2 0.2 -Total Square Cm 1.32 1.43 -Wound/Ulcer Outcome Not Healed Not Healed -Ulcer Cleansing Rinsed/ Rinsed/ Irrigated with Irrigated with Saline Saline -Foul Odor after Cleansing No No -Bioengineered Tissue No No -Bleeding Controlled with Pressure Pressure -Treatment Response Procedure Procedure Tolerated Well Tolerated Well #10 RIGHT ANKLE- ANTERIOR -Time 12:11 12:02 -Correct Patient Yes Yes -Correct Side, Site, Position Yes Yes -Correct Procedure Yes Yes -Procedure Performed Yes Yes -Type of Procedure Debridement Debridement -Clinical Debridement Subcutaneous Subcutaneous -Post Debridement Size (cm) - Length 2.3 4.1 -Post Debridement Size (cm) - Width 6 6.6 -Post Debridement Size (cm) - Depth 0.1 0.2 -Total Square Cm 13.8 27.06 -Wound/Ulcer Outcome Not Healed Not Healed -Ulcer Cleansing Rinsed/ Rinsed/ Irrigated with Irrigated with Saline Saline -Foul Odor after Cleansing No No -Bioengineered Tissue No No -Bleeding Controlled with Pressure Pressure -Treatment Response Procedure Procedure Tolerated Well Tolerated Well 8-right cluster bernstein -Time 12:03 -Correct Patient Yes -Correct Side, Site, Position Yes -Correct Procedure Yes -Procedure Performed Yes -Type of Procedure Debridement -Clinical Debridement Subcutaneous -Post Debridement Size (cm) - Length 6 -Post Debridement Size (cm) - Width 2 -Post Debridement Size (cm) - Depth 0.1 -Total Square Cm 12 -Wound/Ulcer Outcome Not Healed -Ulcer Cleansing Rinsed/ Irrigated with Saline -Foul Odor after Cleansing No -Bioengineered Tissue No -Bleeding Controlled with Pressure -Treatment Response Procedure Tolerated Well #12 Right Posterior LE -Time 12:11 -Correct Patient Yes -Correct Side, Site, Position Yes -Correct Procedure Yes -Procedure Performed Yes -Type of Procedure Debridement -Clinical Debridement Subcutaneous -Post Debridement Size (cm) - Length 2.0 -Post Debridement Size (cm) - Width 1.6 -Post Debridement Size (cm) - Depth 0.1 -Total Square Cm 3.20 -Wound/Ulcer Outcome Not Healed -Ulcer Cleansing Rinsed/ Irrigated with Saline -Foul Odor after Cleansing No -Bioengineered Tissue No -Bleeding Controlled with Pressure -Treatment Response Procedure Tolerated Well #4 Left central TMA -Time 12:12 12:02 -Correct Patient Yes Yes -Correct Side, Site, Position Yes Yes -Correct Procedure Yes Yes -Procedure Performed Yes Yes -Type of Procedure Debridement Debridement -Clinical Debridement Subcutaneous Subcutaneous -Post Debridement Size (cm) - Length 1 0.6 -Post Debridement Size (cm) - Width 0.4 0.4 -Post Debridement Size (cm) - Depth 0.2 0.2 -Total Square Cm 0.4 0.24 -Wound/Ulcer Outcome Not Healed Not Healed -Ulcer Cleansing Rinsed/ Rinsed/ Irrigated with Irrigated with Saline Saline -Foul Odor after Cleansing No No -Bioengineered Tissue No No -Bleeding Controlled with Pressure Pressure -Treatment Response Procedure Procedure Tolerated Well Tolerated Well #1 right medial heel -Time 12:12 12:02 -Correct Patient Yes Yes -Correct Side, Site, Position Yes Yes -Correct Procedure Yes Yes -Procedure Performed Yes Yes -Type of Procedure Debridement Debridement -Clinical Debridement Subcutaneous Subcutaneous -Post Debridement Size (cm) - Length 1.3 1.3 -Post Debridement Size (cm) - Width 2.8 2.1 -Post Debridement Size (cm) - Depth 0.4 0.2 -Total Square Cm 3.64 2.73 -Wound/Ulcer Outcome Not Healed Not Healed -Ulcer Cleansing Rinsed/ Rinsed/ Irrigated with Irrigated with Saline Saline -Foul Odor after Cleansing No No -Bioengineered Tissue No No -Bleeding Controlled with Pressure Pressure -Treatment Response Procedure Procedure Tolerated Well Tolerated Well Pain Scale: 0-10 Numeric Is Patient Pain Free? Yes Yes Wound debrided: leg Laterality: Right Wound Grade/Stage: grade 1 Type of Debridement: Excisional debridement Anesthesia Used: 5% Lidocaine Gel Depth: in the subcutaneous layer Percentage of wound debrided: 100 Instrument Used: #15 blade Tissue Removed: fibrous, devitalized subcutaneous, biofilm, slough Severity: Fat Layer Exposed Amount of bleeding with debridement: Mild Bleeding Controlled with: Pressure Patient tolerated procedure well - Additional Wound Wound debrided: heel Laterality: Right Wound Grade/Stage: grade 3 Type of Debridement: Excisional debridement Anesthesia Used: 5% Lidocaine Gel Depth: in the subcutaneous layer Percentage of wound debrided: 100 Instrument Used: #15 blade Tissue Removed: fibrous, devitalized subcutaneous, biofilm, slough Severity: Fat Layer Exposed Amount of bleeding with debridement: Mild Bleeding Controlled with: Pressure Patient tolerated procedure: Patient tolerated procedure well - Additional Wound Wound debrided: dorsal foot/anterior ankle Laterality: Right Wound Grade/Stage: grade 2 Type of Debridement: Excisional debridement Anesthesia Used: 5% Lidocaine Gel Depth: in the subcutaneous layer Percentage of wound debrided: 100 Instrument Used: #15 blade Tissue Removed: fibrous, devitalized subcutaneous, biofilm, slough Severity: Fat Layer Exposed Amount of bleeding with debridement: Mild Bleeding Controlled with: Pressure Patient tolerated procedure: Patient tolerated procedure well - Additional Wound Wound debrided: distal amputation stump site Laterality: Left Wound Grade/Stage: grade 1 Type of Debridement: Excisional debridement Anesthesia Used: 5% Lidocaine Gel Depth: in the subcutaneous layer Percentage of wound debrided: 100 Instrument Used: #15 blade Tissue Removed: fibrous, devitalized subcutaneous, biofilm, slough Severity: Fat Layer Exposed Amount of bleeding with debridement: Mild Bleeding Controlled with: Pressure Patient tolerated procedure: Patient tolerated procedure well - Additional Wound Wound debrided: dorsal second toe Laterality: Right Wound Grade/Stage: grade 1 Type of Debridement: Excisional debridement Anesthesia Used: 5% Lidocaine Gel Depth: in the subcutaneous layer Percentage of wound debrided: 100 Instrument Used: #15 blade Tissue Removed: fibrous, devitalized subcutaneous, biofilm, slough Severity: Fat Layer Exposed Amount of bleeding with debridement: Mild Bleeding Controlled with: Pressure Patient tolerated procedure: Patient tolerated procedure well Assessment/Plan Active Problems Lymphedema (Chronic) Venous insufficiency (Chronic) Obesity (Acute) Type 2 diabetes mellitus with diabetic polyneuropathy (Chronic) Ulcer of right lower extremity with fat layer exposed (Chronic) Chronic ulcer of left foot with fat layer exposed (Chronic) Ulcer of right foot with fat layer exposed (Chronic) Type 2 diabetes mellitus with diabetic polyneuropathy (Chronic) Malnutrition (Chronic) Obesity (Chronic) Assessment: Right heel ulcer with delayed healing. 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 right leg ulcers. Right ankle ulcer with delayed healing. right second toe ulcer. left foot ulcer. lymphedema and continued leg swelling. rule out peripheral vacular disease and venous insufficiency Plan: I discussed his case and treatment plan. Subcutaneous excisional debridement to all bilateral ulcer sites performed today as noted in the clinical panel. He was reassured there are no local signs of infection noted today. It is noted he completed a full course of advanced wound care product, epifix,application. To apply Regranex to the ulcer sites 12 hours at a time when he is able to coordinate this with home health or family assistance. . To maintain improved skin integrity by applying lac hydrin lotion to both legs daily. Continue circaid wraps bilateral legs daily; it is okay to apply tubigrip prior to application of CircAid foot wrap to better keep his wound dressings in place. To continue compression pump device daily; he is doing well with this. To proceed as previously advised with his lymphedema referral. It is his responsibility to call and he defers additional help with this. To continue diuretic medications per primary care physician.To elevate legs at rest. Compliance is imperative and this was discussed again today. To continue with portion control for weight loss and proper glycemic control and nutritional supplementation to optimize healing. His hemoglobin A1c went from 9.0 to 7.4. I recommended he continues to decrease tension to the anterior right ankle ulcer site by returning to the cam walker boot; to weight-bear as tolerated. All of his questions were answered. He understands he is still at risk for limb loss. Due to the chronicity of the left lower extremity as well I recommend an updated left foot x-ray. The x-rays are reviewed without any gross fractures, dislocation, soft tissue emphysema, foreign body, or definitive osteomyelitis changes. There are some minimal reactive changes at the transmetatarsal amputation stump site. His venous and arterial vascular studies are over one year old. These are reordered today to assess his perfusion and edema status. This is scheduled this afternoon. To follow-up at the wound care center in 1 week or call sooner if he has any questions or concerns.
[2017-09-09 09:41] VITALS: BP 146/82; PULSE 67; RESP 18; TEMP 36
--- NOTE | 2017-09-09 10:19 | PN.PCM_ITS ---
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: Chronic Current Visit: Yes Code(s): L97.512 - Non-pressure chronic ulcer of other part of right foot with fat layer exposed (2) Chronic ulcer of left foot with fat layer exposed Status: Chronic Current Visit: Yes Code(s): L97.522 - Non-pressure chronic ulcer of other part of left foot with fat layer exposed (3) Ulcer of right lower extremity with fat layer exposed Status: Chronic Current Visit: Yes Code(s): L97.912 - Non-pressure chronic ulcer of unspecified part of right lower leg with fat layer exposed (4) Peripheral vascular disease Status: Suspected Current Visit: Yes Code(s): I73.9 - Peripheral vascular disease, unspecified (5) Lymphedema Status: Chronic Current Visit: Yes Code(s): I89.0 - Lymphedema, not elsewhere classified (6) Venous insufficiency Status: Chronic Current Visit: Yes Code(s): I87.2 - Venous insufficiency ( chronic) (peripheral) (7) Obesity Status: Acute Current Visit: Yes Code(s): E66.9 - Obesity, unspecified (8) Type 2 diabetes mellitus with diabetic polyneuropathy Status: Chronic Current Visit: Yes Code(s): E11.42 - Type 2 diabetes mellitus with diabetic polyneuropathy (9) Malnutrition Status: Chronic Current Visit: Yes Code(s): E46 - Unspecified protein- calorie malnutrition (10) Obesity Status: Chronic Current Visit: Yes Code(s): E66.9 - Obesity, unspecified (11) Tinea unguium Status: Chronic Current Visit: Yes Code(s): B35.1 - Tinea unguium Type of Wound Date of Service: 09/09/17 Chief Complaint: Right heel ulcer with delayed healing. 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 right leg ulcers. Right ankle ulcer with delayed healing. right second toe ulcer. Right third toe ulcer. Long thick toenails consistent with onychomycosis versus onychauxis. lymphedema and continued leg swelling History of Wound: 62 year old male was seen for right heel ulcer with chronic osteomyelitis, left foot delayed healing wound, right 2nd toe ulcer, right leg ulcer, and right ankle ulcer. He denies fever, chill, nausea, vomiting. He has Regranex at home and home health has been helping. He uses the compession pump 2-3 times a day with significant edema reduction. He is scheduled for updated noninvasive vascular study which was rescheduled for next week. He tries to bathe every 1-2 days at home in his kitchen. He did not set up lymphedema clinic referral yet. He has for the phone number again today. He has flareups in his loose thick toenails to the right foot and is concerned this is forming pressure and wound. He denies odor or redness. Progress of Wound: Improving. 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 There is no deep tissue exposed. There is peripheral epithelialization noted to the right heel and the dorsal right foot and the right leg. His toenails 3 4 and 5 of the right foot are thick long with loosening. He does have some blood blister formation noted to the distal third and fourth toes in which there is skin discontinuity to the right third toe after this is debrided and clean. There is scant serosanguineous drainage noted and some hemorrhagic and partial granulation tissue noted as well., - - The skin is hairless atrophic bilateral Wound Measurements and Assessment WC - Nurse 1 - General Ulcer Measurement Start: 08/26/17 11:38 Freq: Status: Active Protocol: Activity Type Activity Date Activity User E-Sign Co-Sign Detail Recorded Client Recorded Date Recorded By Document 09/09/17 09:41 [facility] [id number] 09/09/17 09:48 [facility] 09/09/17 09:41 Wound Center Nurse 1 [Ulcer Assessment] #13-right 2nd toe -Combined with other wound No -Current Size (cm) - Length 0.7 -Current Size (cm) - Width 1.2 -Current Size (cm) - Depth 0.2 -Total Square Cm 0.84 -Photo Taken No -Epithelialization Small 1-33% -Tunneling No -Undermining/Tunneling No -Circular Undermining No -Wound Margin Distinct, Outline Attached -Granulation Amt Large (67-100%) -Granulation Quality Red -Slough/Fibrin Yes -Necrosis Amt Small (1-33%) -Necrotic Tissue Type Adherent Slough -Structure Exposed None/Limited to Skin Breakdown -Texture (Susy-wound Skin Appearance) Scarring -Moisture (Susy-wound Skin Appearance Dry/Scaly ) -Color (Susy-wound Skin Appearance) Assessed -Temperature (Susy-wound Skin No Abnormality Appearance) (Pt Warm) -Tenderness on Palpation (Susy-wound No Skin Appearance) -Ulcer Cleansing Wound Cleanser -Foul Odor after Cleansing No -Anesthetic Used 4% Lidocaine Solution #10 RIGHT ANKLE- ANTERIOR -Combined with other wound No -Current Size (cm) - Length 4 -Current Size (cm) - Width 7 -Current Size (cm) - Depth 0.1 -Total Square Cm 28 -Photo Taken No -Epithelialization Small 1-33% -Tunneling No -Undermining/Tunneling No -Circular Undermining No -Wound Margin Distinct, Outline Attached -Granulation Amt Large (67-100%) -Granulation Quality Red -Slough/Fibrin No -Necrosis Amt None Present (0 %) -Structure Exposed None/Limited to Skin Breakdown -Texture (Susy-wound Skin Appearance) Scarring -Moisture (Susy-wound Skin Appearance Dry/Scaly ) -Color (Susy-wound Skin Appearance) Assessed -Temperature (Susy-wound Skin No Abnormality Appearance) (Pt Warm) -Tenderness on Palpation (Susy-wound No Skin Appearance) -Ulcer Cleansing Wound Cleanser -Foul Odor after Cleansing No -Anesthetic Used 4% Lidocaine Solution #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 -Combined with other wound No -Current Size (cm) - Length 0.7 -Current Size (cm) - Width 1.6 -Current Size (cm) - Depth 0.1 -Total Square Cm 1.12 -Photo Taken No -Epithelialization Small 1-33% -Tunneling No -Undermining/Tunneling No -Circular Undermining No -Exudate Amt Small (1-33%) -Exudate Type Sanguineous -Wound Margin Distinct, Outline Attached -Granulation Amt Large (67-100%) -Granulation Quality Red -Slough/Fibrin Yes -Necrosis Amt Small (1-33%) -Necrotic Tissue Type Adherent Slough -Structure Exposed None/Limited to Skin Breakdown -Texture (Susy-wound Skin Appearance) Scarring -Moisture (Susy-wound Skin Appearance Dry/Scaly ) -Color (Susy-wound Skin Appearance) Hemosiderin Staining -Temperature (Susy-wound Skin No Abnormality Appearance) (Pt Warm) -Tenderness on Palpation (Susy-wound No Skin Appearance) -Ulcer Cleansing Wound Cleanser -Foul Odor after Cleansing No -Anesthetic Used 4% Lidocaine Solution #4 Left central TMA -Combined with other wound No -Current Size (cm) - Length 1.8 -Current Size (cm) - Width 0.4 -Current Size (cm) - Depth 0.3 -Total Square Cm 0.72 -Photo Taken No -Epithelialization Small 1-33% -Tunneling No -Undermining/Tunneling No -Circular Undermining No -Wound Margin Distinct, Outline Attached -Granulation Amt Large (67-100%) -Granulation Quality [place] -Slough/Fibrin No -Necrosis Amt None Present (0 %) -Structure Exposed None/Limited to Skin Breakdown -Texture (Susy-wound Skin Appearance) Scarring -Moisture (Susy-wound Skin Appearance Maceration ) -Color (Susy-wound Skin Appearance) Assessed -Temperature (Susy-wound Skin No Abnormality Appearance) (Pt Warm) -Tenderness on Palpation (Susy-wound No Skin Appearance) -Ulcer Cleansing Wound Cleanser -Foul Odor after Cleansing No -Anesthetic Used 4% Lidocaine Solution #1 right medial heel -Combined with other wound No -Current Size (cm) - Length 1.5 -Current Size (cm) - Width 2.7 -Current Size (cm) - Depth 0.3 -Total Square Cm 4.05 -Photo Taken No -Tunneling No -Undermining/Tunneling No -Circular Undermining No -Wound Margin Distinct, Outline Attached -Granulation Amt Medium (34-66%) -Granulation Quality Red -Slough/Fibrin Yes -Necrosis Amt Medium (34-66%) -Necrotic Tissue Type Adherent Slough -Structure Exposed None/Limited to Skin Breakdown -Texture (Susy-wound Skin Appearance) Callus Scarring -Moisture (Susy-wound Skin Appearance Dry/Scaly ) -Color (Susy-wound Skin Appearance) Assessed -Temperature (Susy-wound Skin No Abnormality Appearance) (Pt Warm) -Tenderness on Palpation (Susy-wound No Skin Appearance) -Ulcer Cleansing Wound Cleanser -Foul Odor after Cleansing No -Anesthetic Used 4% Lidocaine Solution [Edema Assessment] -Lower Limb Edema Present Yes -Right Calf (cm) 51.5 -Right Ankle (cm) 28.6 -Left Calf (cm) 50 -Left Ankle (cm) 28.2 WC - Nurse 2 - General Ulcer CM Notes Start: 08/26/17 11:38 Freq: Status: Active Protocol: Activity Type Activity Date Activity User E-Sign Co-Sign Detail Recorded Client Recorded Date Recorded By Document 09/09/17 10:07 NORRIS [id number] 09/09/17 10:09 NORRIS 09/09/17 10:07 Wound Center Nurse 2 [Procedure/Treatment] #13-right 2nd toe -Time 10:07 -Correct Patient Yes -Correct Side, Site, Position Yes -Correct Procedure Yes -Procedure Performed Yes -Type of Procedure Debridement -Clinical Debridement Subcutaneous -Post Debridement Size (cm) - Length 0.8 -Post Debridement Size (cm) - Width 1.2 -Post Debridement Size (cm) - Depth 0.2 -Total Square Cm 0.96 -Wound/Ulcer Outcome Not Healed -Ulcer Cleansing Rinsed/ Irrigated with Saline -Foul Odor after Cleansing No -Bioengineered Tissue No -Bleeding Controlled with Pressure -Treatment Response Procedure Tolerated Well #10 RIGHT ANKLE- ANTERIOR -Time 10:07 -Correct Patient Yes -Correct Side, Site, Position Yes -Correct Procedure Yes -Procedure Performed Yes -Type of Procedure Debridement -Clinical Debridement Subcutaneous -Post Debridement Size (cm) - Length 4 -Post Debridement Size (cm) - Width 7.1 -Post Debridement Size (cm) - Depth 0.1 -Total Square Cm 28.4 -Wound/Ulcer Outcome Not Healed -Ulcer Cleansing Rinsed/ Irrigated with Saline -Foul Odor after Cleansing No -Bioengineered Tissue No -Bleeding Controlled with Pressure -Treatment Response Procedure Tolerated Well #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 -Time 10:08 -Correct Patient Yes -Correct Side, Site, Position Yes -Correct Procedure Yes -Procedure Performed Yes -Type of Procedure Debridement -Clinical Debridement Subcutaneous -Post Debridement Size (cm) - Length 0.8 -Post Debridement Size (cm) - Width 1.7 -Post Debridement Size (cm) - Depth 0.1 -Total Square Cm 1.36 -Wound/Ulcer Outcome Not Healed -Ulcer Cleansing Rinsed/ Irrigated with Saline -Foul Odor after Cleansing No -Bioengineered Tissue No -Bleeding Controlled with Pressure -Treatment Response Procedure Tolerated Well #4 Left central TMA -Time 10:08 -Correct Patient Yes -Correct Side, Site, Position Yes -Correct Procedure Yes -Procedure Performed Yes -Type of Procedure Debridement -Clinical Debridement Subcutaneous -Post Debridement Size (cm) - Length 1.8 -Post Debridement Size (cm) - Width 0.5 -Post Debridement Size (cm) - Depth 0.3 -Total Square Cm 0.90 -Wound/Ulcer Outcome Not Healed -Ulcer Cleansing Rinsed/ Irrigated with Saline -Foul Odor after Cleansing No -Bioengineered Tissue No -Bleeding Controlled with Pressure -Treatment Response Procedure Tolerated Well #1 right medial heel -Time 10:08 -Correct Patient Yes -Correct Side, Site, Position Yes -Correct Procedure Yes -Procedure Performed Yes -Type of Procedure Debridement -Clinical Debridement Subcutaneous -Post Debridement Size (cm) - Length 1.5 -Post Debridement Size (cm) - Width 2.8 -Post Debridement Size (cm) - Depth 0.3 -Total Square Cm 4.20 -Wound/Ulcer Outcome Not Healed -Ulcer Cleansing Rinsed/ Irrigated with Saline -Foul Odor after Cleansing No -Bioengineered Tissue No -Bleeding Controlled with Pressure -Treatment Response Procedure Tolerated Well [See Physician Procedure note for Specifics] Pain Scale: 0-10 Numeric [Pain] -Is Patient Pain Free? Yes Musculoskeletal: No Tenderness to Palpation of Joints or Extremities, Muscle Wasting, - - Dorsal contraction of lesser digits 2345 right Neurological: - - Lack of epicritic sensation to light touch bilateral extremities Psych/Mental Status: Normal Affect, Appropriate Debridement Note Post-Debridement Measurements/Treatment WC - Nurse 2 - General Ulcer CM Notes Start: 08/26/17 11:38 Freq: Status: Active Protocol: Activity Type Activity Date Activity User E-Sign Co-Sign Detail Recorded Client Recorded Date Recorded By Document 08/26/17 12:10 [id number] 08/26/17 12:13 Document 09/02/17 12:01 [id number] 09/02/17 12:04 Document 09/09/17 10:07 [id number] 09/09/17 10:09 JF 08/26/17 09/02/17 09/09/17 12:10 12:01 10:07 Wound Center Nurse 2 #13-right 2nd toe -Time 12:10 12:01 10:07 -Correct Patient Yes Yes Yes -Correct Side, Site, Position Yes Yes Yes -Correct Procedure Yes Yes Yes -Procedure Performed Yes Yes Yes -Type of Procedure Debridement Debridement Debridement -Clinical Debridement Subcutaneous Subcutaneous Subcutaneous -Post Debridement Size (cm) - Length 1.1 1.1 0.8 -Post Debridement Size (cm) - Width 1.2 1.3 1.2 -Post Debridement Size (cm) - Depth 0.2 0.2 0.2 -Total Square Cm 1.32 1.43 0.96 -Wound/Ulcer Outcome Not Healed Not Healed Not Healed -Ulcer Cleansing Rinsed/ Rinsed/ Rinsed/ Irrigated with Irrigated with Irrigated with Saline Saline Saline -Foul Odor after Cleansing No No No -Bioengineered Tissue No No No -Bleeding Controlled with Pressure Pressure Pressure -Treatment Response Procedure Procedure Procedure Tolerated Well Tolerated Well Tolerated Well #10 RIGHT ANKLE- ANTERIOR -Time 12:11 12:02 10:07 -Correct Patient Yes Yes Yes -Correct Side, Site, Position Yes Yes Yes -Correct Procedure Yes Yes Yes -Procedure Performed Yes Yes Yes -Type of Procedure Debridement Debridement Debridement -Clinical Debridement Subcutaneous Subcutaneous Subcutaneous -Post Debridement Size (cm) - Length 2.3 4.1 4 -Post Debridement Size (cm) - Width 6 6.6 7.1 -Post Debridement Size (cm) - Depth 0.1 0.2 0.1 -Total Square Cm 13.8 27.06 28.4 -Wound/Ulcer Outcome Not Healed Not Healed Not Healed -Ulcer Cleansing Rinsed/ Rinsed/ Rinsed/ Irrigated with Irrigated with Irrigated with Saline Saline Saline -Foul Odor after Cleansing No No No -Bioengineered Tissue No No No -Bleeding Controlled with Pressure Pressure Pressure -Treatment Response Procedure Procedure Procedure Tolerated Well Tolerated Well Tolerated Well #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 -Time 12:03 10:08 -Correct Patient Yes Yes -Correct Side, Site, Position Yes Yes -Correct Procedure Yes Yes -Procedure Performed Yes Yes -Type of Procedure Debridement Debridement -Clinical Debridement Subcutaneous Subcutaneous -Post Debridement Size (cm) - Length 6 0.8 -Post Debridement Size (cm) - Width 2 1.7 -Post Debridement Size (cm) - Depth 0.1 0.1 -Total Square Cm 12 1.36 -Wound/Ulcer Outcome Not Healed Not Healed -Ulcer Cleansing Rinsed/ Rinsed/ Irrigated with Irrigated with Saline Saline -Foul Odor after Cleansing No No -Bioengineered Tissue No No -Bleeding Controlled with Pressure Pressure -Treatment Response Procedure Procedure Tolerated Well Tolerated Well #12 Right Posterior LE -Time 12:11 -Correct Patient Yes -Correct Side, Site, Position Yes -Correct Procedure Yes -Procedure Performed Yes -Type of Procedure Debridement -Clinical Debridement Subcutaneous -Post Debridement Size (cm) - Length 2.0 -Post Debridement Size (cm) - Width 1.6 -Post Debridement Size (cm) - Depth 0.1 -Total Square Cm 3.20 -Wound/Ulcer Outcome Not Healed -Ulcer Cleansing Rinsed/ Irrigated with Saline -Foul Odor after Cleansing No -Bioengineered Tissue No -Bleeding Controlled with Pressure -Treatment Response Procedure Tolerated Well #4 Left central TMA -Time 12:12 12:02 10:08 -Correct Patient Yes Yes Yes -Correct Side, Site, Position Yes Yes Yes -Correct Procedure Yes Yes Yes -Procedure Performed Yes Yes Yes -Type of Procedure Debridement Debridement Debridement -Clinical Debridement Subcutaneous Subcutaneous Subcutaneous -Post Debridement Size (cm) - Length 1 0.6 1.8 -Post Debridement Size (cm) - Width 0.4 0.4 0.5 -Post Debridement Size (cm) - Depth 0.2 0.2 0.3 -Total Square Cm 0.4 0.24 0.90 -Wound/Ulcer Outcome Not Healed Not Healed Not Healed -Ulcer Cleansing Rinsed/ Rinsed/ Rinsed/ Irrigated with Irrigated with Irrigated with Saline Saline Saline -Foul Odor after Cleansing No No No -Bioengineered Tissue No No No -Bleeding Controlled with Pressure Pressure Pressure -Treatment Response Procedure Procedure Procedure Tolerated Well Tolerated Well Tolerated Well #1 right medial heel -Time 12:12 12:02 10:08 -Correct Patient Yes Yes Yes -Correct Side, Site, Position Yes Yes Yes -Correct Procedure Yes Yes Yes -Procedure Performed Yes Yes Yes -Type of Procedure Debridement Debridement Debridement -Clinical Debridement Subcutaneous Subcutaneous Subcutaneous -Post Debridement Size (cm) - Length 1.3 1.3 1.5 -Post Debridement Size (cm) - Width 2.8 2.1 2.8 -Post Debridement Size (cm) - Depth 0.4 0.2 0.3 -Total Square Cm 3.64 2.73 4.20 -Wound/Ulcer Outcome Not Healed Not Healed Not Healed -Ulcer Cleansing Rinsed/ Rinsed/ Rinsed/ Irrigated with Irrigated with Irrigated with Saline Saline Saline -Foul Odor after Cleansing No No No -Bioengineered Tissue No No No -Bleeding Controlled with Pressure Pressure Pressure -Treatment Response Procedure Procedure Procedure Tolerated Well Tolerated Well Tolerated Well Pain Scale: 0-10 Numeric Is Patient Pain Free? Yes Yes Yes Wound debrided: foot distal Laterality: Left Wound Grade/Stage: grade 1 Type of Debridement: Excisional debridement Anesthesia Used: 5% Lidocaine Gel Depth: in the subcutaneous layer Percentage of wound debrided: 100 Instrument Used: #15 blade Tissue Removed: fibrous, devitalized subcutaneous, biofilm, slough Severity: Fat Layer Exposed Amount of bleeding with debridement: Mild Bleeding Controlled with: Pressure Patient tolerated procedure well - Additional Wound Wound debrided: distal third toe Laterality: Right Wound Grade/Stage: grade 1 Type of Debridement: Excisional debridement Anesthesia Used: 5% Lidocaine Gel Depth: in the subcutaneous layer Percentage of wound debrided: 100 Instrument Used: #15 blade Tissue Removed: fibrous, devitalized subcutaneous, biofilm, slough Severity: Fat Layer Exposed Amount of bleeding with debridement: Mild Bleeding Controlled with: Pressure Patient tolerated procedure: Patient tolerated procedure well - Additional Wound Wound debrided: heel Laterality: Right Wound Grade/Stage: grade 3 Type of Debridement: Excisional debridement Anesthesia Used: 5% Lidocaine Gel Depth: in the subcutaneous layer Percentage of wound debrided: 100 Instrument Used: #15 blade Tissue Removed: fibrous, devitalized subcutaneous, biofilm, slough Severity: Fat Layer Exposed Amount of bleeding with debridement: Mild Bleeding Controlled with: Pressure Patient tolerated procedure: Patient tolerated procedure well - Additional Wound Wound debrided: dorsal foot / anterior ankle Laterality: Right Wound Grade/Stage: grade 1 Type of Debridement: Excisional debridement Anesthesia Used: 5% Lidocaine Gel Depth: in the subcutaneous layer Percentage of wound debrided: 100 Instrument Used: #15 blade Tissue Removed: fibrous, devitalized subcutaneous, biofilm, slough Severity: Fat Layer Exposed Amount of bleeding with debridement: Mild Bleeding Controlled with: Pressure Patient tolerated procedure: Patient tolerated procedure well - Additional Wound Wound debrided: leg Laterality: Right Wound Grade/Stage: grade 1 Type of Debridement: Excisional debridement Anesthesia Used: 5% Lidocaine Gel Depth: in the subcutaneous layer Percentage of wound debrided: 100 Instrument Used: #15 blade Tissue Removed: fibrous, devitalized subcutaneous, biofilm, slough Severity: Fat Layer Exposed Amount of bleeding with debridement: Mild Bleeding Controlled with: Pressure Patient tolerated procedure: Patient tolerated procedure well Assessment/Plan Active Problems Lymphedema (Chronic) Venous insufficiency (Chronic) Tinea unguium (Chronic) Obesity (Acute) Type 2 diabetes mellitus with diabetic polyneuropathy (Chronic) Ulcer of right lower extremity with fat layer exposed (Chronic) Chronic ulcer of left foot with fat layer exposed (Chronic) Ulcer of right foot with fat layer exposed (Chronic) Type 2 diabetes mellitus with diabetic polyneuropathy (Chronic) Malnutrition (Chronic) Obesity (Chronic) Assessment: Right heel ulcer with delayed healing. 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 right leg ulcers. Onycholysis and onychomycosis right 345. New wound with fat layer exposed right third toe, no infection. Right ankle ulcer with delayed healing. right second toe ulcer. left foot ulcer. lymphedema and continued leg swelling. rule out peripheral vacular disease and venous insufficiency Plan: I discussed his case and treatment plan. Subcutaneous excisional debridement to all bilateral ulcer sites performed today as noted in the clinical panel. He was reassured there are no local signs of infection noted today. His new wound site is noted. His toenails on the right foot including 3 4 and 5 were debrided with a nail nipper in length and thickness. He tolerated this well. He is reassured no infection is noted. It is noted he completed a full course of advanced wound care product, epifix,application. To apply Regranex to the ulcer sites 12 hours at a time when he is able to coordinate this with home health or family assistance. . To maintain improved skin integrity by applying lac hydrin lotion to both legs daily. Continue circaid wraps bilateral legs daily; it is okay to apply tubigrip prior to application of CircAid foot wrap to better keep his wound dressings in place. To continue compression pump device daily; he is doing well with this. To proceed as previously advised with his lymphedema referral. It is his responsibility to call and he defers additional help with this. To continue diuretic medications per primary care physician.To elevate legs at rest. Compliance is imperative and this was discussed again today. To continue with portion control for weight loss and proper glycemic control and nutritional supplementation to optimize healing. His hemoglobin A1c went from 9.0 to 7.4. I recommended he continues to decrease tension to the anterior right ankle ulcer site by returning to the cam walker boot; to weight-bear as tolerated. All of his questions were answered. He understands he is still at risk for limb loss. Due to the chronicity of the left lower extremity as well I recommend an updated left foot x-ray. The x-rays are reviewed without any gross fractures, dislocation, soft tissue emphysema, foreign body, or definitive osteomyelitis changes. There are some minimal reactive changes at the transmetatarsal amputation stump site. His venous and arterial vascular studies are over one year old. These are reordered today to assess his perfusion and edema status. This is rescheduled for next week. He was provided with the emphysema clinic contact phone number and advised to follow-up. He also complains of chronic knee pain and try to review this case with his primary care physician last week. He requests an orthopedic referral at this time. I recommend he follows up at [facility]; he is previously known at this facility. To follow- up at the wound care center in 1 week or call sooner if he has any questions or concerns.
== END 2017-09-12 23:59 ==
LOC: WC 09:30
PROVIDERS: Family Provider Family Medicine; PCP Family Medicine; Visit Provider Podiatrist
DX: E11.621 Type 2 diabetes mellitus with foot ulcer (principal); E11.42 Type 2 diabetes mellitus with diabetic polyneuropathy; I89.0 Lymphedema, not elsewhere classified; E11.51 Type 2 diabetes mellitus with diabetic peripheral angiopathy without gangrene; E66.9 Obesity, unspecified; Z71.3 Dietary counseling and surveillance; L97.512 Non-pressure chronic ulcer of other part of right foot with fat layer exposed; L97.522 Non-pressure chronic ulcer of other part of left foot with fat layer exposed; E11.622 Type 2 diabetes mellitus with other skin ulcer; L97.312 Non-pressure chronic ulcer of right ankle with fat layer exposed; L97.822 Non-pressure chronic ulcer of other part of left lower leg with fat layer exposed
CPT/HCPCS: 11042; 11045

== ENCOUNTER 2017-10-09 10:00 | Outpatient (RCR) | payer MEDICARE, MEDICAID, SELFPAY ==
[2017-09-13 00:29] VITALS: BP 146/82; PULSE 67; RESP 18; TEMP 36
[2017-09-23 11:13] VITALS: BP 122/44; PULSE 55; RESP 16; TEMP 36
--- NOTE | 2017-09-23 12:47 | PCM.WC.PN ---
(1) Ulcer of right lower extremity with fat layer exposed Status: Chronic Current Visit: Yes Code(s): L97.912 - Non-pressure chronic ulcer of unspecified part of right lower leg with fat layer exposed (2) Ulcer of right foot with fat layer exposed Status: Chronic Current Visit: Yes Code(s): L97.512 - Non-pressure chronic ulcer of other part of right foot with fat layer exposed (3) Lymphedema Status: Chronic Current Visit: Yes Code(s): I89.0 - Lymphedema, not elsewhere classified (4) Venous insufficiency Status: Chronic Current Visit: Yes Code(s): I87.2 - Venous insufficiency (chronic) (peripheral) (5) Peripheral vascular disease Status: Suspected Current Visit: Yes Code(s): I73.9 - Peripheral vascular disease, unspecified (6) Lower extremity edema Status: Acute Current Visit: Yes Code(s): R60.0 - Localized edema (7) Type 2 diabetes mellitus with diabetic polyneuropathy Status: Chronic Current Visit: Yes Code(s): E11.42 - Type 2 diabetes mellitus with diabetic polyneuropathy (8) Chronic ulcer of left foot with fat layer exposed Status: Chronic Current Visit: No Code(s): L97.522 - Non-pressure chronic ulcer of other part of left foot with fat layer exposed (9) Type 2 diabetes mellitus with diabetic polyneuropathy Status: Chronic Current Visit: Yes Code(s): E11.42 - Type 2 diabetes mellitus with diabetic polyneuropathy (10) Malnutrition Status: Chronic Current Visit: Yes Code(s): E46 - Unspecified protein-calorie malnutrition (11) Obesity Status: Chronic Current Visit: Yes Code(s): E66.9 - Obesity, unspecified Type of Wound Date of Service: 09/23/17 Chief Complaint: Right heel ulcer with delayed healing. 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 right leg ulcers. Right ankle ulcer with delayed healing. right second toe ulcer. Right third toe ulcer. Long thick toenails consistent with onychomycosis versus onychauxis. lymphedema and continued leg swelling History of Wound: 62 year old male was seen for right heel ulcer with chronic osteomyelitis, left foot delayed healing wound, right 2nd toe ulcer, right leg ulcer, and right ankle ulcer. He denies fever, chill, nausea, vomiting. He has Regranex at home and home health has been helping. He uses the compession pump 2-3 times a day with significant edema reduction. He is scheduled for updated noninvasive vascular study which will need to reschedule. He tries to bathe every 1-2 days at home in his kitchen. He is scheduled to be seen at [facility] on September 30, 2017. He was induced his pastry intake. He denies odor or redness. Progress of Wound: Improving - Physical Exam Vital Signs Temp Pulse Resp BP 96.8 F L 55 L 16 122/44 H 09/23/17 11:13 09/23/17 11:13 09/23/17 11:13 09/23/17 11:13 General: Alert, Oriented x3, Cooperative Extremities: No cyanosis, Capillary Refill Less than 3 Seconds, No Calf Tenderness - Negative Keara and Simmons bilateral, Diminished Peripheral Pulses, Edema Skin: Ulcer/ Wound - No purulence, no erythema, streaking, no odor, no infection bilateral no exposed bone or deep tissue bilateral the peripheral skin is atrophic. Wound Measurements and Assessment WC - Nurse 1 - General Ulcer Measurement Start: 09/23/17 11:13 Freq: Status: Active Protocol: Activity Type Activity Date Activity User E-Sign Co-Sign Detail Recorded Client Recorded Date Recorded By Document 09/23/17 11:13 [facility] [id number] 09/23/17 11:36 [facility] 09/23/17 11:13 Wound Center Nurse 1 [Ulcer Assessment] #13-right 2nd toe -Combined with other wound No -Current Size (cm) - Length 0.9 -Current Size (cm) - Width 1.3 -Current Size (cm) - Depth 0.2 -Total Square Cm 1.17 -Date of Last Picture (Recall this 09/23/17 field) -Photo Taken Yes -Epithelialization Small 1-33% -Tunneling No -Undermining/Tunneling No -Circular Undermining No -Exudate Amt Small (1-33%) -Exudate Type Serosanguineous -Wound Margin Distinct, Outline Attached -Granulation Amt Medium (34-66%) -Granulation Quality Red -Slough/Fibrin Yes -Necrosis Amt Medium (34-66%) -Necrotic Tissue Type Adherent Slough -Texture (Susy-wound Skin Appearance) Scarring -Moisture (Susy-wound Skin Appearance Dry/Scaly ) -Color (Susy-wound Skin Appearance) Assessed -Temperature (Susy-wound Skin No Abnormality Appearance) (Pt Warm) -Tenderness on Palpation (Susy-wound No Skin Appearance) -Ulcer Cleansing Wound Cleanser -Foul Odor after Cleansing No -Anesthetic Used 4% Lidocaine Solution #10 RIGHT ANKLE- ANTERIOR -Combined with other wound No -Current Size (cm) - Length 2.2 -Current Size (cm) - Width 5.4 -Current Size (cm) - Depth 0.1 -Total Square Cm 11.88 -Date of Last Picture (Recall this 09/23/17 field) -Photo Taken Yes -Epithelialization Small 1-33% -Tunneling No -Undermining/Tunneling No -Circular Undermining No -Exudate Amt Medium (34-66%) -Exudate Type Serosanguineous -Wound Margin Distinct, Outline Attached -Granulation Amt Large (67-100%) -Granulation Quality Hyper- granulation Pale Red -Slough/Fibrin Yes -Necrosis Amt Small (1-33%) -Necrotic Tissue Type Adherent Slough -Texture (Susy-wound Skin Appearance) Scarring -Moisture (Susy-wound Skin Appearance Dry/Scaly ) -Color (Susy-wound Skin Appearance) Assessed -Temperature (Susy-wound Skin No Abnormality Appearance) (Pt Warm) -Tenderness on Palpation (Susy-wound No Skin Appearance) -Ulcer Cleansing Wound Cleanser -Foul Odor after Cleansing No -Anesthetic Used 4% Lidocaine Solution #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 -Combined with other wound No -Current Size (cm) - Length 13 -Current Size (cm) - Width 13 -Current Size (cm) - Depth 0.1 -Total Square Cm 169 -Date of Last Picture (Recall this 09/23/17 field) -Photo Taken Yes -Epithelialization Small 1-33% -Tunneling No -Undermining/Tunneling No -Circular Undermining No -Exudate Amt Small (1-33%) -Exudate Type Serosanguineous -Wound Margin Distinct, Outline Attached -Granulation Amt Large (67-100%) -Granulation Quality Red -Slough/Fibrin Yes -Necrosis Amt Small (1-33%) -Necrotic Tissue Type Adherent Slough -Structure Exposed None/Limited to Skin Breakdown -Texture (Susy-wound Skin Appearance) Scarring -Moisture (Susy-wound Skin Appearance Dry/Scaly ) -Color (Susy-wound Skin Appearance) Hemosiderin Staining -Temperature (Susy-wound Skin No Abnormality Appearance) (Pt Warm) -Tenderness on Palpation (Susy-wound No Skin Appearance) -Ulcer Cleansing Wound Cleanser -Foul Odor after Cleansing No -Anesthetic Used 4% Lidocaine Solution #4 Left central TMA -Combined with other wound No -Current Size (cm) - Length 1.5 -Current Size (cm) - Width 0.5 -Current Size (cm) - Depth 0.3 -Total Square Cm 0.75 -Date of Last Picture (Recall this 09/23/17 field) -Photo Taken Yes -Epithelialization Small 1-33% -Tunneling No -Undermining/Tunneling No -Circular Undermining No -Exudate Amt Small (1-33%) -Exudate Type Serosanguineous -Wound Margin Distinct, Outline Attached -Granulation Amt Small (1-33%) -Granulation Quality Red -Slough/Fibrin Yes -Necrosis Amt Large (67-100%) -Necrotic Tissue Type Adherent Slough -Texture (Susy-wound Skin Appearance) Scarring -Moisture (Susy-wound Skin Appearance Dry/Scaly ) -Color (Susy-wound Skin Appearance) Assessed -Temperature (Susy-wound Skin No Abnormality Appearance) (Pt Warm) -Tenderness on Palpation (Susy-wound No Skin Appearance) -Ulcer Cleansing Wound Cleanser -Foul Odor after Cleansing No -Anesthetic Used 4% Lidocaine Solution #1 right medial heel -Combined with other wound No -Current Size (cm) - Length 1.4 -Current Size (cm) - Width 2.6 -Current Size (cm) - Depth 0.6 -Total Square Cm 3.64 -Date of Last Picture (Recall this 09/23/17 field) -Photo Taken Yes -Epithelialization Small 1-33% -Tunneling No -Undermining/Tunneling No -Circular Undermining No -Exudate Amt Medium (34-66%) -Exudate Type Serosanguineous -Wound Margin Distinct, Outline Attached -Granulation Amt Medium (34-66%) -Granulation Quality Pale Red -Slough/Fibrin Yes -Necrosis Amt Small (1-33%) -Necrotic Tissue Type Adherent Slough -Texture (Susy-wound Skin Appearance) Callus Scarring -Moisture (Susy-wound Skin Appearance Dry/Scaly ) -Color (Susy-wound Skin Appearance) Assessed -Temperature (Susy-wound Skin No Abnormality Appearance) (Pt Warm) -Tenderness on Palpation (Susy-wound No Skin Appearance) -Ulcer Cleansing Wound Cleanser -Foul Odor after Cleansing No -Anesthetic Used 4% Lidocaine Solution [Edema Assessment] -Lower Limb Edema Present Yes -Right Calf (cm) 51.2 -Right Ankle (cm) 29.5 -Left Calf (cm) 48.6 -Left Ankle (cm) 28.9 WC - Nurse 2 - General Ulcer CM Notes Start: 09/23/17 11:13 Freq: Status: Active Protocol: Activity Type Activity Date Activity User E-Sign Co-Sign Detail Recorded Client Recorded Date Recorded By Document 09/23/17 11:58 [id number] 09/23/17 12:06 09/23/17 11:58 Wound Center Nurse 2 [Procedure/Treatment] #13-right 2nd toe -Time 12:01 -Correct Patient Yes -Correct Side, Site, Position Yes -Correct Procedure Yes -Procedure Performed Yes -Type of Procedure Debridement -Clinical Debridement Subcutaneous -Post Debridement Size (cm) - Length 1.0 -Post Debridement Size (cm) - Width 1.4 -Post Debridement Size (cm) - Depth 0.2 -Total Square Cm 1.40 -Wound/Ulcer Outcome Not Healed -Ulcer Cleansing Rinsed/ Irrigated with Saline -Foul Odor after Cleansing No -Bioengineered Tissue No -Topical Lidocaine (%) 4 -Bleeding Controlled with Pressure -Treatment Response Procedure Tolerated Well #10 RIGHT ANKLE- ANTERIOR -Time 12:02 -Correct Patient Yes -Correct Side, Site, Position Yes -Correct Procedure Yes -Procedure Performed Yes -Type of Procedure Debridement -Clinical Debridement Subcutaneous -Post Debridement Size (cm) - Length 2.3 -Post Debridement Size (cm) - Width 5.5 -Post Debridement Size (cm) - Depth 0.1 -Total Square Cm 12.65 -Wound/Ulcer Outcome Not Healed -Ulcer Cleansing Rinsed/ Irrigated with Saline -Foul Odor after Cleansing No -Bioengineered Tissue No -Topical Lidocaine (%) 4 -Bleeding Controlled with Pressure -Treatment Response Procedure Tolerated Well #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 -Time 12:02 -Correct Patient Yes -Correct Side, Site, Position Yes -Correct Procedure Yes -Procedure Performed Yes -Type of Procedure Debridement -Clinical Debridement Subcutaneous -Post Debridement Size (cm) - Length 13.1 -Post Debridement Size (cm) - Width 13.1 -Post Debridement Size (cm) - Depth 0.1 -Total Square Cm 171.61 -Wound/Ulcer Outcome Not Healed -Ulcer Cleansing Rinsed/ Irrigated with Saline -Bioengineered Tissue No -Topical Lidocaine (%) 4 -Bleeding Controlled with Pressure -Treatment Response Procedure Tolerated Well #4 Left central TMA -Time 12:02 -Correct Patient Yes -Correct Side, Site, Position Yes -Correct Procedure Yes -Procedure Performed Yes -Type of Procedure Debridement -Clinical Debridement Subcutaneous -Post Debridement Size (cm) - Length 1.6 -Post Debridement Size (cm) - Width 0.6 -Post Debridement Size (cm) - Depth 0.3 -Total Square Cm 0.96 -Wound/Ulcer Outcome Not Healed -Ulcer Cleansing Rinsed/ Irrigated with Saline -Foul Odor after Cleansing No -Bioengineered Tissue No -Topical Lidocaine (%) 4 -Bleeding Controlled with Pressure -Treatment Response Procedure Tolerated Well #1 right medial heel -Time 12:04 -Correct Patient Yes -Correct Side, Site, Position Yes -Correct Procedure Yes -Procedure Performed Yes -Type of Procedure Debridement -Clinical Debridement Subcutaneous -Post Debridement Size (cm) - Length 1.5 -Post Debridement Size (cm) - Width 2.7 -Post Debridement Size (cm) - Depth 0.6 -Total Square Cm 4.05 -Wound/Ulcer Outcome Not Healed -Ulcer Cleansing Rinsed/ Irrigated with Saline -Foul Odor after Cleansing No -Bioengineered Tissue No -Topical Lidocaine (%) 4 -Bleeding Controlled with Pressure -Treatment Response Procedure Tolerated Well [See Physician Procedure note for Specifics] Pain Scale: 0-10 Numeric [Pain] -Is Patient Pain Free? Yes Musculoskeletal: No Tenderness to Palpation of Joints or Extremities, Muscle Wasting, - - Dorsal contraction of lesser toes. Hallux amputations noted. Neurological: - - Lack of epicritic sensation light touch bilateral lower remedies Psych/Mental Status: Normal Affect, Appropriate Debridement Note Post-Debridement Measurements/Treatment WC - Nurse 2 - General Ulcer CM Notes Start: 09/23/17 11:13 Freq: Status: Active Protocol: Activity Type Activity Date Activity User E-Sign Co-Sign Detail Recorded Client Recorded Date Recorded By Document 09/23/17 11:58 [id number] 09/23/17 12:06 09/23/17 11:58 Wound Center Nurse 2 #13-right 2nd toe -Time 12:01 -Correct Patient Yes -Correct Side, Site, Position Yes -Correct Procedure Yes -Procedure Performed Yes -Type of Procedure Debridement -Clinical Debridement Subcutaneous -Post Debridement Size (cm) - Length 1.0 -Post Debridement Size (cm) - Width 1.4 -Post Debridement Size (cm) - Depth 0.2 -Total Square Cm 1.40 -Wound/Ulcer Outcome Not Healed -Ulcer Cleansing Rinsed/ Irrigated with Saline -Foul Odor after Cleansing No -Bioengineered Tissue No -Topical Lidocaine (%) 4 -Bleeding Controlled with Pressure -Treatment Response Procedure Tolerated Well #10 RIGHT ANKLE- ANTERIOR -Time 12:02 -Correct Patient Yes -Correct Side, Site, Position Yes -Correct Procedure Yes -Procedure Performed Yes -Type of Procedure Debridement -Clinical Debridement Subcutaneous -Post Debridement Size (cm) - Length 2.3 -Post Debridement Size (cm) - Width 5.5 -Post Debridement Size (cm) - Depth 0.1 -Total Square Cm 12.65 -Wound/Ulcer Outcome Not Healed -Ulcer Cleansing Rinsed/ Irrigated with Saline -Foul Odor after Cleansing No -Bioengineered Tissue No -Topical Lidocaine (%) 4 -Bleeding Controlled with Pressure -Treatment Response Procedure Tolerated Well #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 -Time 12:02 -Correct Patient Yes -Correct Side, Site, Position Yes -Correct Procedure Yes -Procedure Performed Yes -Type of Procedure Debridement -Clinical Debridement Subcutaneous -Post Debridement Size (cm) - Length 13.1 -Post Debridement Size (cm) - Width 13.1 -Post Debridement Size (cm) - Depth 0.1 -Total Square Cm 171.61 -Wound/Ulcer Outcome Not Healed -Ulcer Cleansing Rinsed/ Irrigated with Saline -Bioengineered Tissue No -Topical Lidocaine (%) 4 -Bleeding Controlled with Pressure -Treatment Response Procedure Tolerated Well #4 Left central TMA -Time 12:02 -Correct Patient Yes -Correct Side, Site, Position Yes -Correct Procedure Yes -Procedure Performed Yes -Type of Procedure Debridement -Clinical Debridement Subcutaneous -Post Debridement Size (cm) - Length 1.6 -Post Debridement Size (cm) - Width 0.6 -Post Debridement Size (cm) - Depth 0.3 -Total Square Cm 0.96 -Wound/Ulcer Outcome Not Healed -Ulcer Cleansing Rinsed/ Irrigated with Saline -Foul Odor after Cleansing No -Bioengineered Tissue No -Topical Lidocaine (%) 4 -Bleeding Controlled with Pressure -Treatment Response Procedure Tolerated Well #1 right medial heel -Time 12:04 -Correct Patient Yes -Correct Side, Site, Position Yes -Correct Procedure Yes -Procedure Performed Yes -Type of Procedure Debridement -Clinical Debridement Subcutaneous -Post Debridement Size (cm) - Length 1.5 -Post Debridement Size (cm) - Width 2.7 -Post Debridement Size (cm) - Depth 0.6 -Total Square Cm 4.05 -Wound/Ulcer Outcome Not Healed -Ulcer Cleansing Rinsed/ Irrigated with Saline -Foul Odor after Cleansing No -Bioengineered Tissue No -Topical Lidocaine (%) 4 -Bleeding Controlled with Pressure -Treatment Response Procedure Tolerated Well Pain Scale: 0-10 Numeric Is Patient Pain Free? Yes Wound debrided: dorsal toe Laterality: Right - g Wound Grade/Stage: grade 1 Type of Debridement: Excisional debridement Anesthesia Used: 5% Lidocaine Gel Depth: in the subcutaneous layer Percentage of wound debrided: 100 Instrument Used: #15 blade Tissue Removed: fibrous, devitalized subcutaneous, biofilm, slough Severity: Fat Layer Exposed Amount of bleeding with debridement: Mild Bleeding Controlled with: Pressure Patient tolerated procedure well - Additional Wound Wound debrided: heel Laterality: Right Wound Grade/Stage: grade 3 Type of Debridement: Excisional debridement Anesthesia Used: 5% Lidocaine Gel Depth: in the subcutaneous layer Percentage of wound debrided: 100 Instrument Used: #15 blade Tissue Removed: fibrous, devitalized subcutaneous, biofilm, slough Severity: Fat Layer Exposed Amount of bleeding with debridement: Mild Bleeding Controlled with: Pressure Patient tolerated procedure: Patient tolerated procedure well - Additional Wound Wound debrided: leg Laterality: Right Wound Grade/Stage: grade 1 Type of Debridement: Excisional debridement Anesthesia Used: 5% Lidocaine Gel Depth: in the subcutaneous layer Percentage of wound debrided: 100 Instrument Used: #15 blade Tissue Removed: fibrous, devitalized subcutaneous, biofilm, slough Severity: Fat Layer Exposed Amount of bleeding with debridement: Mild Bleeding Controlled with: Pressure Patient tolerated procedure: Patient tolerated procedure well - Additional Wound Wound debrided: anterior ankle Laterality: Right Wound Grade/Stage: grade 2 Type of Debridement: Excisional debridement Anesthesia Used: 5% Lidocaine Gel Depth: in the subcutaneous layer Percentage of wound debrided: 100 Instrument Used: #15 blade Tissue Removed: fibrous, devitalized subcutaneous, biofilm, slough Severity: Fat Layer Exposed Amount of bleeding with debridement: Mild Bleeding Controlled with: Pressure Patient tolerated procedure: Patient tolerated procedure well - Additional Wound Wound debrided: distal transmetatarsal amputation stump site Laterality: Left Wound Grade/Stage: grade 1 Type of Debridement: Excisional debridement Anesthesia Used: 5% Lidocaine Gel Depth: in the subcutaneous layer Percentage of wound debrided: 100 Instrument Used: #15 blade Tissue Removed: fibrous, devitalized subcutaneous, biofilm, slough Severity: Fat Layer Exposed Amount of bleeding with debridement: Mild Bleeding Controlled with: Pressure Patient tolerated procedure: Patient tolerated procedure well Assessment/Plan Active Problems Lymphedema (Chronic) Venous insufficiency (Chronic) Lower extremity edema (Acute) Type 2 diabetes mellitus with diabetic polyneuropathy (Chronic) Ulcer of right lower extremity with fat layer exposed (Chronic) Ulcer of right foot with fat layer exposed (Chronic) Type 2 diabetes mellitus with diabetic polyneuropathy (Chronic) Malnutrition (Chronic) Obesity (Chronic) Assessment: Right heel ulcer with delayed healing. 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 right leg ulcers. Right ankle ulcer with delayed healing. right second toe ulcer. left foot ulcer. lymphedema and continued leg swelling. rule out peripheral vacular disease and venous insufficiency Plan: I discussed his case and treatment plan. Subcutaneous excisional debridement to all bilateral ulcer sites performed today as noted in the clinical panel. He was reassured there are no local signs of infection noted today. He is reassured no infection is noted. It is noted he completed a full course of advanced wound care product, epifix,application. To apply Regranex to the ulcer sites 12 hours at she does get it put I noticed a lot better time when he is able to coordinate this with home health or family assistance. . To maintain improved skin integrity by applying lac hydrin lotion to both legs daily. Continue circaid wraps bilateral legs daily; it is okay to apply tubigrip prior to application of CircAid foot wrap to better keep his wound dressings in place. To continue compression pump device daily; he is doing well with this. To proceed as previously advised with his lymphedema referral on the . To continue diuretic medications per primary care physician.To elevate legs at rest. Compliance is imperative and this was discussed again today. To continue with portion control for weight loss and proper glycemic control and nutritional supplementation to optimize healing. His hemoglobin A1c went from 9.0 to 7.4. I recommended he continues to decrease tension to the anterior right ankle ulcer site by returning to the cam walker boot; to weight-bear as tolerated. All of his questions were answered. He understands he is still at risk for limb loss. Due to the chronicity of the left lower extremity as well I recommend an updated left foot x-ray. The x-rays are reviewed without any gross fractures, dislocation, soft tissue emphysema, foreign body, or definitive osteomyelitis changes. There are some minimal reactive changes at the transmetatarsal amputation stump site. His venous and arterial vascular studies are over one year old. These are reordered today to assess his perfusion and edema status. This will need to be rescheduled; compliance was discussed. To follow-up at the wound care center in 1 week or call sooner if he has any questions or concerns.
[2017-09-30 10:31] VITALS: BP 142/56; PULSE 18; RESP 18; TEMP 36.2
--- NOTE | 2017-09-30 11:49 | PCM.WC.PN ---
(1) Ulcer of right lower extremity with fat layer exposed Status: Chronic Current Visit: Yes Code(s): L97.912 - Non-pressure chronic ulcer of unspecified part of right lower leg with fat layer exposed (2) Ulcer of right foot with fat layer exposed Status: Chronic Current Visit: Yes Code(s): L97.512 - Non-pressure chronic ulcer of other part of right foot with fat layer exposed (3) Lymphedema Status: Chronic Current Visit: Yes Code(s): I89.0 - Lymphedema, not elsewhere classified (4) Venous insufficiency Status: Chronic Current Visit: Yes Code(s): I87.2 - Venous insufficiency (chronic) (peripheral) (5) Peripheral vascular disease Status: Suspected Current Visit: Yes Code(s): I73.9 - Peripheral vascular disease, unspecified (6) Lower extremity edema Status: Acute Current Visit: Yes Code(s): R60.0 - Localized edema (7) Type 2 diabetes mellitus with diabetic polyneuropathy Status: Chronic Current Visit: Yes Code(s): E11.42 - Type 2 diabetes mellitus with diabetic polyneuropathy (8) Chronic ulcer of left foot with fat layer exposed Status: Chronic Current Visit: No Code(s): L97.522 - Non-pressure chronic ulcer of other part of left foot with fat layer exposed (9) Type 2 diabetes mellitus with diabetic polyneuropathy Status: Chronic Current Visit: Yes Code(s): E11.42 - Type 2 diabetes mellitus with diabetic polyneuropathy (10) Malnutrition Status: Chronic Current Visit: Yes Code(s): E46 - Unspecified protein-calorie malnutrition (11) Obesity Status: Chronic Current Visit: Yes Code(s): E66.9 - Obesity, unspecified Type of Wound Date of Service: 10/01/17 Chief Complaint: Right heel ulcer with delayed healing. New left foot ulcer. 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 right leg ulcers. Right ankle ulcer with delayed healing. right second toe ulcer. Right third toe ulcer. Long thick toenails consistent with onychomycosis versus onychauxis. lymphedema and continued leg swelling History of Wound: 62 year old male was seen for right heel ulcer with chronic osteomyelitis, left foot delayed healing wound, right 2nd toe ulcer, right leg ulcer, and right ankle ulcer. He denies fever, chill, nausea, vomiting. He has Regranex at home and home health has been helping when he has help available with the dressing changes. When he does not have help he simply uses elda. He uses the compession pump 2-3 times a day with significant edema reduction. He is scheduled for updated noninvasive vascular study which will need to reschedule. He tries to bathe every 1-2 days at home in his kitchen. He is scheduled to be seen at [facility] tomorrow. He also noticed a scab to the outside of the left foot he does not recall a trauma. He denies redness. Progress of Wound: Improving - Physical Exam Vital Signs Temp Pulse Resp BP 97.1 F L 18 L 18 142/56 H 09/30/17 10:31 09/30/17 10:31 09/30/17 10:31 09/30/17 10:31 General: Alert, Oriented x3, Cooperative Extremities: No cyanosis, Capillary Refill Less than 3 Seconds, No Calf Tenderness, Diminished Peripheral Pulses, Edema Skin: Ulcer/ Wound - No purulence, erythema, streaking, odor, no infection. Improved granulation tissue and peripheral epithelialization is noted most wound, - - Atrophic skin bilateral. Lateral left foot eschar upon debridement sub-hemorrhagic and subcutaneous granular tissue exposed. There is no deep tissue or signs of local infection Wound Measurements and Assessment WC - Nurse 1 - General Ulcer Measurement Start: 09/23/17 11:13 Freq: Status: Active Protocol: Activity Type Activity Date Activity User E-Sign Co-Sign Detail Recorded Client Recorded Date Recorded By Document 09/30/17 10:31 [facility] [id number] 09/30/17 10:46 [facility] 09/30/17 10:31 Wound Center Nurse 1 [Ulcer Assessment] #13-right 2nd toe -Combined with other wound No -Current Size (cm) - Length 0.5 -Current Size (cm) - Width 1.4 -Current Size (cm) - Depth 0.2 -Total Square Cm 0.70 -Photo Taken No -Epithelialization Small 1-33% -Tunneling No -Undermining/Tunneling No -Circular Undermining No -Exudate Amt Small (1-33%) -Exudate Type Serosanguineous -Wound Margin Distinct, Outline Attached -Granulation Amt Small (1-33%) -Granulation Quality [place] -Slough/Fibrin Yes -Necrosis Amt Medium (34-66%) -Necrotic Tissue Type Adherent Slough -Texture (Susy-wound Skin Appearance) Scarring -Moisture (Susy-wound Skin Appearance Dry/Scaly ) -Color (Susy-wound Skin Appearance) Assessed Erythema -Temperature (Susy-wound Skin No Abnormality Appearance) (Pt Warm) -Tenderness on Palpation (Susy-wound No Skin Appearance) -Ulcer Cleansing Wound Cleanser -Foul Odor after Cleansing No -Anesthetic Used 4% Lidocaine Solution #10 RIGHT ANKLE- ANTERIOR -Combined with other wound No -Current Size (cm) - Length 2.4 -Current Size (cm) - Width 6.4 -Current Size (cm) - Depth 0.1 -Total Square Cm 15.36 -Photo Taken No -Epithelialization Small 1-33% -Tunneling No -Undermining/Tunneling No -Circular Undermining No -Exudate Amt Medium (34-66%) -Exudate Type Serosanguineous -Wound Margin Distinct, Outline Attached -Granulation Amt Large (67-100%) -Granulation Quality Hyper- granulation Red -Slough/Fibrin No -Necrosis Amt None Present (0 %) -Texture (Susy-wound Skin Appearance) Scarring -Moisture (Susy-wound Skin Appearance Dry/Scaly ) -Color (Susy-wound Skin Appearance) Assessed -Temperature (Susy-wound Skin No Abnormality Appearance) (Pt Warm) -Tenderness on Palpation (Susy-wound No Skin Appearance) -Ulcer Cleansing Wound Cleanser -Foul Odor after Cleansing No -Anesthetic Used 4% Lidocaine Solution #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 -Combined with other wound No -Current Size (cm) - Length 15.6 -Current Size (cm) - Width 7.6 -Current Size (cm) - Depth 0.1 -Total Square Cm 118.56 -Photo Taken No -Epithelialization Small 1-33% -Tunneling No -Undermining/Tunneling No -Circular Undermining No -Exudate Amt Small (1-33%) -Exudate Type Serosanguineous -Wound Margin Distinct, Outline Attached -Granulation Amt Large (67-100%) -Granulation Quality Red -Slough/Fibrin No -Structure Exposed None/Limited to Skin Breakdown -Texture (Susy-wound Skin Appearance) Scarring -Moisture (Susy-wound Skin Appearance Dry/Scaly ) -Color (Susy-wound Skin Appearance) Erythema Hemosiderin Staining -Temperature (Susy-wound Skin No Abnormality Appearance) (Pt Warm) -Tenderness on Palpation (Susy-wound No Skin Appearance) -Ulcer Cleansing Wound Cleanser -Foul Odor after Cleansing No -Anesthetic Used 4% Lidocaine Solution #4 Left central TMA -Combined with other wound No -Current Size (cm) - Length 1 -Current Size (cm) - Width 0.2 -Current Size (cm) - Depth 0.3 -Total Square Cm 0.2 -Photo Taken No -Epithelialization Small 1-33% -Tunneling No -Undermining/Tunneling No -Circular Undermining No -Exudate Amt Small (1-33%) -Exudate Type Serosanguineous -Wound Margin Distinct, Outline Attached -Granulation Amt Medium (34-66%) -Granulation Quality Pale [place] -Slough/Fibrin Yes -Necrosis Amt Small (1-33%) -Necrotic Tissue Type Adherent Slough -Texture (Susy-wound Skin Appearance) Scarring -Moisture (Susy-wound Skin Appearance Dry/Scaly ) -Color (Susy-wound Skin Appearance) Assessed -Temperature (Susy-wound Skin No Abnormality Appearance) (Pt Warm) -Tenderness on Palpation (Susy-wound No Skin Appearance) -Ulcer Cleansing Wound Cleanser -Foul Odor after Cleansing No -Anesthetic Used 4% Lidocaine Solution #1 right medial heel -Combined with other wound No -Current Size (cm) - Length 103 -Current Size (cm) - Width 2.5 -Current Size (cm) - Depth 0.2 -Total Square Cm 257.5 -Photo Taken No -Epithelialization Small 1-33% -Tunneling No -Undermining/Tunneling No -Circular Undermining No -Exudate Amt Medium (34-66%) -Exudate Type Serosanguineous -Wound Margin Distinct, Outline Attached -Granulation Amt Large (67-100%) -Granulation Quality [place] -Slough/Fibrin Yes -Necrosis Amt Small (1-33%) -Necrotic Tissue Type Adherent Slough -Texture (Susy-wound Skin Appearance) Callus Scarring -Moisture (Susy-wound Skin Appearance Dry/Scaly ) -Color (Susy-wound Skin Appearance) Assessed -Temperature (Susy-wound Skin No Abnormality Appearance) (Pt Warm) -Tenderness on Palpation (Susy-wound No Skin Appearance) -Ulcer Cleansing Wound Cleanser -Foul Odor after Cleansing No -Anesthetic Used 4% Lidocaine Solution [Edema Assessment] -Lower Limb Edema Present Yes -Right Calf (cm) 50.4 -Right Ankle (cm) 30.2 -Left Calf (cm) 49.1 -Left Ankle (cm) 30.1 Musculoskeletal: No Tenderness to Palpation of Joints or Extremities, Muscle Wasting, - - Compartments lower extremity in a soft. Left transmetatarsal amputation noted Neurological: - - Lack of epicritic sensation light touch bilateral lower extremities Psych/Mental Status: Normal Affect, Appropriate Debridement Note Post-Debridement Measurements/Treatment WC - Nurse 2 - General Ulcer CM Notes Start: 09/23/17 11:13 Freq: Status: Active Protocol: Activity Type Activity Date Activity User E-Sign Co-Sign Detail Recorded Client Recorded Date Recorded By Document 09/23/17 11:58 [id number] 09/23/17 12:06 09/23/17 11:58 Wound Center Nurse 2 #13-right 2nd toe -Time 12:01 -Correct Patient Yes -Correct Side, Site, Position Yes -Correct Procedure Yes -Procedure Performed Yes -Type of Procedure Debridement -Clinical Debridement Subcutaneous -Post Debridement Size (cm) - Length 1.0 -Post Debridement Size (cm) - Width 1.4 -Post Debridement Size (cm) - Depth 0.2 -Total Square Cm 1.40 -Wound/Ulcer Outcome Not Healed -Ulcer Cleansing Rinsed/ Irrigated with Saline -Foul Odor after Cleansing No -Bioengineered Tissue No -Topical Lidocaine (%) 4 -Bleeding Controlled with Pressure -Treatment Response Procedure Tolerated Well #10 RIGHT ANKLE- ANTERIOR -Time 12:02 -Correct Patient Yes -Correct Side, Site, Position Yes -Correct Procedure Yes -Procedure Performed Yes -Type of Procedure Debridement -Clinical Debridement Subcutaneous -Post Debridement Size (cm) - Length 2.3 -Post Debridement Size (cm) - Width 5.5 -Post Debridement Size (cm) - Depth 0.1 -Total Square Cm 12.65 -Wound/Ulcer Outcome Not Healed -Ulcer Cleansing Rinsed/ Irrigated with Saline -Foul Odor after Cleansing No -Bioengineered Tissue No -Topical Lidocaine (%) 4 -Bleeding Controlled with Pressure -Treatment Response Procedure Tolerated Well #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 -Time 12:02 -Correct Patient Yes -Correct Side, Site, Position Yes -Correct Procedure Yes -Procedure Performed Yes -Type of Procedure Debridement -Clinical Debridement Subcutaneous -Post Debridement Size (cm) - Length 13.1 -Post Debridement Size (cm) - Width 13.1 -Post Debridement Size (cm) - Depth 0.1 -Total Square Cm 171.61 -Wound/Ulcer Outcome Not Healed -Ulcer Cleansing Rinsed/ Irrigated with Saline -Bioengineered Tissue No -Topical Lidocaine (%) 4 -Bleeding Controlled with Pressure -Treatment Response Procedure Tolerated Well #4 Left central TMA -Time 12:02 -Correct Patient Yes -Correct Side, Site, Position Yes -Correct Procedure Yes -Procedure Performed Yes -Type of Procedure Debridement -Clinical Debridement Subcutaneous -Post Debridement Size (cm) - Length 1.6 -Post Debridement Size (cm) - Width 0.6 -Post Debridement Size (cm) - Depth 0.3 -Total Square Cm 0.96 -Wound/Ulcer Outcome Not Healed -Ulcer Cleansing Rinsed/ Irrigated with Saline -Foul Odor after Cleansing No -Bioengineered Tissue No -Topical Lidocaine (%) 4 -Bleeding Controlled with Pressure -Treatment Response Procedure Tolerated Well #1 right medial heel -Time 12:04 -Correct Patient Yes -Correct Side, Site, Position Yes -Correct Procedure Yes -Procedure Performed Yes -Type of Procedure Debridement -Clinical Debridement Subcutaneous -Post Debridement Size (cm) - Length 1.5 -Post Debridement Size (cm) - Width 2.7 -Post Debridement Size (cm) - Depth 0.6 -Total Square Cm 4.05 -Wound/Ulcer Outcome Not Healed -Ulcer Cleansing Rinsed/ Irrigated with Saline -Foul Odor after Cleansing No -Bioengineered Tissue No -Topical Lidocaine (%) 4 -Bleeding Controlled with Pressure -Treatment Response Procedure Tolerated Well Pain Scale: 0-10 Numeric Is Patient Pain Free? Yes Wound debrided: bernstein cluster Laterality: Right Wound Grade/Stage: grade 1 Type of Debridement: Excisional debridement Anesthesia Used: 5% Lidocaine Gel Depth: in the subcutaneous layer Percentage of wound debrided: - - 25% Instrument Used: #15 blade Tissue Removed: devitalized subcutaneous, biofilm, slough, fibrous Severity: Fat Layer Exposed Amount of bleeding with debridement: Mild Bleeding Controlled with: Pressure Patient tolerated procedure well - Additional Wound Wound debrided: lateral foot Laterality: Left Wound Grade/Stage: grade 1 Type of Debridement: Excisional debridement Anesthesia Used: 5% Lidocaine Gel Depth: in the subcutaneous layer Percentage of wound debrided: 100 Instrument Used: #15 blade Tissue Removed: devitalized subcutaneous, biofilm, slough, fibrous Severity: Fat Layer Exposed Amount of bleeding with debridement: Mild Bleeding Controlled with: Pressure Patient tolerated procedure: Patient tolerated procedure well - Additional Wound Wound debrided: anterior ankle Laterality: Right Wound Grade/Stage: grade 1 Type of Debridement: Excisional debridement Anesthesia Used: 5% Lidocaine Gel Depth: in the subcutaneous layer Percentage of wound debrided: 100 Instrument Used: #15 blade Tissue Removed: devitalized subcutaneous, biofilm, slough, fibrousc Severity: Fat Layer Exposed Amount of bleeding with debridement: Mild Bleeding Controlled with: Pressure Patient tolerated procedure: Patient tolerated procedure well - Additional Wound Wound debrided: heel Laterality: Right Wound Grade/Stage: grade 3 Type of Debridement: Excisional debridement Anesthesia Used: 5% Lidocaine Gel Depth: in the subcutaneous layer Percentage of wound debrided: 100 Instrument Used: #15 blade Tissue Removed: devitalized subcutaneous, biofilm, slough, fibrous Severity: Fat Layer Exposed Amount of bleeding with debridement: Mild Bleeding Controlled with: Pressure Patient tolerated procedure: Patient tolerated procedure well - Additional Wound Wound debrided: dorsal 2nd toe Laterality: Right Wound Grade/Stage: grade 1 Type of Debridement: Excisional debridement Anesthesia Used: 5% Lidocaine Gel Depth: in the subcutaneous layer Percentage of wound debrided: 100 Instrument Used: #15 blade Tissue Removed: devitalized subcutaneous, biofilm, slough, fibrous Severity: Fat Layer Exposed Amount of bleeding with debridement: Mild Bleeding Controlled with: Pressure Patient tolerated procedure: Patient tolerated procedure well - Additional Wound Wound debrided: distal TMA site Laterality: Left Wound Grade/Stage: grade 1 Type of Debridement: Excisional debridement Anesthesia Used: 5% Lidocaine Gel Depth: in the subcutaneous layer Percentage of wound debrided: 100 Instrument Used: #15 blade Tissue Removed: devitalized subcutaneous, biofilm, slough, fibrous Severity: Fat Layer Exposed Amount of bleeding with debridement: Mild Bleeding Controlled with: Pressure Patient tolerated procedure: Patient tolerated procedure well Assessment/Plan Active Problems Lymphedema (Chronic) Venous insufficiency (Chronic) Lower extremity edema (Acute) Type 2 diabetes mellitus with diabetic polyneuropathy (Chronic) Ulcer of right lower extremity with fat layer exposed (Chronic) Ulcer of right foot with fat layer exposed (Chronic) Type 2 diabetes mellitus with diabetic polyneuropathy (Chronic) Malnutrition (Chronic) Obesity (Chronic) Assessment: Right heel ulcer with delayed healing. No left foot ulcer no infection. 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 right leg ulcers. Right ankle ulcer with delayed healing. right second toe ulcer. left foot ulcer. lymphedema and continued leg swelling. rule out peripheral vacular disease and venous insufficiency Plan: I discussed his case and treatment plan. Subcutaneous excisional debridement to all bilateral ulcer sites performed today as noted in the clinical panel. He was reassured there are no local signs of infection noted today. He is reassured no infection is noted. It is noted he completed a full course of advanced wound care product, epifix,application. To apply Regranex to the ulcer sites 12 hours at she does get it put I noticed a lot better time when he is able to coordinate this with home health or family assistance. If lack of assistance is noted he can resume only Elda use. . To maintain improved skin integrity by applying lac hydrin lotion to both legs daily. Continue circaid wraps bilateral legs daily; it is okay to apply tubigrip prior to application of CircAid foot wrap to better keep his wound dressings in place. To continue compression pump device daily; he is doing well with this. To proceed as previously advised with his lymphedema referral this week. To continue diuretic medications per primary care physician.To elevate legs at rest. Compliance is imperative and this was discussed again today. To continue with portion control for weight loss and proper glycemic control and nutritional supplementation to optimize healing. His hemoglobin A1c went from 9.0 to 7.4. I recommended he continues to decrease tension to the anterior right ankle ulcer site by returning to the cam walker boot; to weight-bear as tolerated. All of his questions were answered. He understands he is still at risk for limb loss. Due to the chronicity of the left lower extremity as well I recommend an updated left foot x-ray. The x-rays are reviewed without any gross fractures, dislocation, soft tissue emphysema, foreign body, or definitive osteomyelitis changes. There are some minimal reactive changes at the transmetatarsal amputation stump site. His venous and arterial vascular studies are over one year old. These are reordered today to assess his perfusion and edema status. This will need to be rescheduled; compliance was discussed. To follow-up at the wound care center in 1 week or call sooner if he has any questions or concerns.
--- NOTE | 2017-09-30 11:58 | PN.PCM_ITS ---
(1) Ulcer of right lower extremity with fat layer exposed Status: Chronic Current Visit: Yes Code(s): L97.912 - Non-pressure chronic ulcer of unspecified part of right lower leg with fat layer exposed (2) Ulcer of right foot with fat layer exposed Status: Chronic Current Visit: Yes Code(s): L97.512 - Non-pressure chronic ulcer of other part of right foot with fat layer exposed (3) Lymphedema Status: Chronic Current Visit: Yes Code(s): I89.0 - Lymphedema, not elsewhere classified (4) Venous insufficiency Status: Chronic Current Visit: Yes Code(s): I87.2 - Venous insufficiency ( chronic) (peripheral) (5) Peripheral vascular disease Status: Suspected Current Visit: Yes Code(s): I73.9 - Peripheral vascular disease, unspecified (6) Lower extremity edema Status: Acute Current Visit: Yes Code(s): R60.0 - Localized edema (7) Type 2 diabetes mellitus with diabetic polyneuropathy Status: Chronic Current Visit: Yes Code(s): E11.42 - Type 2 diabetes mellitus with diabetic polyneuropathy (8) Chronic ulcer of left foot with fat layer exposed Status: Chronic Current Visit: No Code(s): L97.522 - Non-pressure chronic ulcer of other part of left foot with fat layer exposed (9) Type 2 diabetes mellitus with diabetic polyneuropathy Status: Chronic Current Visit: Yes Code(s): E11.42 - Type 2 diabetes mellitus with diabetic polyneuropathy (10) Malnutrition Status: Chronic Current Visit: Yes Code(s): E46 - Unspecified protein- calorie malnutrition (11) Obesity Status: Chronic Current Visit: Yes Code(s): E66.9 - Obesity, unspecified Type of Wound Date of Service: 10/01/17 Chief Complaint: Right heel ulcer with delayed healing. New left foot ulcer. s /p left foot with ulcers at transmetatarsal amputation site. right leg ulcers. Right ankle ulcer with delayed healing. right second toe ulcer. Right third toe ulcer. Long thick toenails consistent with onychomycosis versus onychauxis. lymphedema and continued leg swelling History of Wound: 62 year old male was seen for right heel ulcer with chronic osteomyelitis, left foot delayed healing wound, right 2nd toe ulcer, right leg ulcer, and right ankle ulcer. He denies fever, chill, nausea, vomiting. He has Regranex at home and home health has been helping when he has help available with the dressing changes. When he does not have help he simply uses elda. He uses the compession pump 2-3 times a day with significant edema reduction. He is scheduled for updated noninvasive vascular study which will need to reschedule. He tries to bathe every 1-2 days at home in his kitchen. He is scheduled to be seen at [facility] tomorrow. He also noticed a scab to the outside of the left foot he does not recall a trauma. He denies redness. Progress of Wound: Improving - Physical Exam Vital Signs Temp Pulse Resp BP 97.1 F L 18 L 18 142/56 H 09/30/17 10:31 09/30/17 10:31 09/30/17 10:31 09/30/17 10:31 General: Alert, Oriented x3, Cooperative Extremities: No cyanosis, Capillary Refill Less than 3 Seconds, No Calf Tenderness, Diminished Peripheral Pulses, Edema Skin: Ulcer/ Wound - No purulence, erythema, streaking, odor, no infection. Improved granulation tissue and peripheral epithelialization is noted most wound , - - Atrophic skin bilateral. Lateral left foot eschar upon debridement sub- hemorrhagic and subcutaneous granular tissue exposed. There is no deep tissue or signs of local infection Wound Measurements and Assessment WC - Nurse 1 - General Ulcer Measurement Start: 09/23/17 11:13 Freq: Status: Active Protocol: Activity Type Activity Date Activity User E-Sign Co-Sign Detail Recorded Client Recorded Date Recorded By Document 09/30/17 10:31 [facility] [id number] 09/30/17 10:46 [facility] 09/30/17 10:31 Wound Center Nurse 1 [Ulcer Assessment] #13-right 2nd toe -Combined with other wound No -Current Size (cm) - Length 0.5 -Current Size (cm) - Width 1.4 -Current Size (cm) - Depth 0.2 -Total Square Cm 0.70 -Photo Taken No -Epithelialization Small 1-33% -Tunneling No -Undermining/Tunneling No -Circular Undermining No -Exudate Amt Small (1-33%) -Exudate Type Serosanguineous -Wound Margin Distinct, Outline Attached -Granulation Amt Small (1-33%) -Granulation Quality [place] -Slough/Fibrin Yes -Necrosis Amt Medium (34-66%) -Necrotic Tissue Type Adherent Slough -Texture (Susy-wound Skin Appearance) Scarring -Moisture (Susy-wound Skin Appearance Dry/Scaly ) -Color (Susy-wound Skin Appearance) Assessed Erythema -Temperature (Susy-wound Skin No Abnormality Appearance) (Pt Warm) -Tenderness on Palpation (Susy-wound No Skin Appearance) -Ulcer Cleansing Wound Cleanser -Foul Odor after Cleansing No -Anesthetic Used 4% Lidocaine Solution #10 RIGHT ANKLE- ANTERIOR -Combined with other wound No -Current Size (cm) - Length 2.4 -Current Size (cm) - Width 6.4 -Current Size (cm) - Depth 0.1 -Total Square Cm 15.36 -Photo Taken No -Epithelialization Small 1-33% -Tunneling No -Undermining/Tunneling No -Circular Undermining No -Exudate Amt Medium (34-66%) -Exudate Type Serosanguineous -Wound Margin Distinct, Outline Attached -Granulation Amt Large (67-100%) -Granulation Quality Hyper- granulation Red -Slough/Fibrin No -Necrosis Amt None Present (0 %) -Texture (Susy-wound Skin Appearance) Scarring -Moisture (Susy-wound Skin Appearance Dry/Scaly ) -Color (Susy-wound Skin Appearance) Assessed -Temperature (Susy-wound Skin No Abnormality Appearance) (Pt Warm) -Tenderness on Palpation (Susy-wound No Skin Appearance) -Ulcer Cleansing Wound Cleanser -Foul Odor after Cleansing No -Anesthetic Used 4% Lidocaine Solution #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 -Combined with other wound No -Current Size (cm) - Length 15.6 -Current Size (cm) - Width 7.6 -Current Size (cm) - Depth 0.1 -Total Square Cm 118.56 -Photo Taken No -Epithelialization Small 1-33% -Tunneling No -Undermining/Tunneling No -Circular Undermining No -Exudate Amt Small (1-33%) -Exudate Type Serosanguineous -Wound Margin Distinct, Outline Attached -Granulation Amt Large (67-100%) -Granulation Quality Red -Slough/Fibrin No -Structure Exposed None/Limited to Skin Breakdown -Texture (Susy-wound Skin Appearance) Scarring -Moisture (Susy-wound Skin Appearance Dry/Scaly ) -Color (Susy-wound Skin Appearance) Erythema Hemosiderin Staining -Temperature (Susy-wound Skin No Abnormality Appearance) (Pt Warm) -Tenderness on Palpation (Susy-wound No Skin Appearance) -Ulcer Cleansing Wound Cleanser -Foul Odor after Cleansing No -Anesthetic Used 4% Lidocaine Solution #4 Left central TMA -Combined with other wound No -Current Size (cm) - Length 1 -Current Size (cm) - Width 0.2 -Current Size (cm) - Depth 0.3 -Total Square Cm 0.2 -Photo Taken No -Epithelialization Small 1-33% -Tunneling No -Undermining/Tunneling No -Circular Undermining No -Exudate Amt Small (1-33%) -Exudate Type Serosanguineous -Wound Margin Distinct, Outline Attached -Granulation Amt Medium (34-66%) -Granulation Quality Pale [place] -Slough/Fibrin Yes -Necrosis Amt Small (1-33%) -Necrotic Tissue Type Adherent Slough -Texture (Susy-wound Skin Appearance) Scarring -Moisture (Susy-wound Skin Appearance Dry/Scaly ) -Color (Susy-wound Skin Appearance) Assessed -Temperature (Susy-wound Skin No Abnormality Appearance) (Pt Warm) -Tenderness on Palpation (Susy-wound No Skin Appearance) -Ulcer Cleansing Wound Cleanser -Foul Odor after Cleansing No -Anesthetic Used 4% Lidocaine Solution #1 right medial heel -Combined with other wound No -Current Size (cm) - Length 103 -Current Size (cm) - Width 2.5 -Current Size (cm) - Depth 0.2 -Total Square Cm 257.5 -Photo Taken No -Epithelialization Small 1-33% -Tunneling No -Undermining/Tunneling No -Circular Undermining No -Exudate Amt Medium (34-66%) -Exudate Type Serosanguineous -Wound Margin Distinct, Outline Attached -Granulation Amt Large (67-100%) -Granulation Quality [place] -Slough/Fibrin Yes -Necrosis Amt Small (1-33%) -Necrotic Tissue Type Adherent Slough -Texture (Susy-wound Skin Appearance) Callus Scarring -Moisture (Susy-wound Skin Appearance Dry/Scaly ) -Color (Susy-wound Skin Appearance) Assessed -Temperature (Susy-wound Skin No Abnormality Appearance) (Pt Warm) -Tenderness on Palpation (Susy-wound No Skin Appearance) -Ulcer Cleansing Wound Cleanser -Foul Odor after Cleansing No -Anesthetic Used 4% Lidocaine Solution [Edema Assessment] -Lower Limb Edema Present Yes -Right Calf (cm) 50.4 -Right Ankle (cm) 30.2 -Left Calf (cm) 49.1 -Left Ankle (cm) 30.1 Musculoskeletal: No Tenderness to Palpation of Joints or Extremities, Muscle Wasting, - - Compartments lower extremity in a soft. Left transmetatarsal amputation noted Neurological: - - Lack of epicritic sensation light touch bilateral lower extremities Psych/Mental Status: Normal Affect, Appropriate Debridement Note Post-Debridement Measurements/Treatment WC - Nurse 2 - General Ulcer CM Notes Start: 09/23/17 11:13 Freq: Status: Active Protocol: Activity Type Activity Date Activity User E-Sign Co-Sign Detail Recorded Client Recorded Date Recorded By Document 09/23/17 11:58 [id number] 09/23/17 12:06 09/23/17 11:58 Wound Center Nurse 2 #13-right 2nd toe -Time 12:01 -Correct Patient Yes -Correct Side, Site, Position Yes -Correct Procedure Yes -Procedure Performed Yes -Type of Procedure Debridement -Clinical Debridement Subcutaneous -Post Debridement Size (cm) - Length 1.0 -Post Debridement Size (cm) - Width 1.4 -Post Debridement Size (cm) - Depth 0.2 -Total Square Cm 1.40 -Wound/Ulcer Outcome Not Healed -Ulcer Cleansing Rinsed/ Irrigated with Saline -Foul Odor after Cleansing No -Bioengineered Tissue No -Topical Lidocaine (%) 4 -Bleeding Controlled with Pressure -Treatment Response Procedure Tolerated Well #10 RIGHT ANKLE- ANTERIOR -Time 12:02 -Correct Patient Yes -Correct Side, Site, Position Yes -Correct Procedure Yes -Procedure Performed Yes -Type of Procedure Debridement -Clinical Debridement Subcutaneous -Post Debridement Size (cm) - Length 2.3 -Post Debridement Size (cm) - Width 5.5 -Post Debridement Size (cm) - Depth 0.1 -Total Square Cm 12.65 -Wound/Ulcer Outcome Not Healed -Ulcer Cleansing Rinsed/ Irrigated with Saline -Foul Odor after Cleansing No -Bioengineered Tissue No -Topical Lidocaine (%) 4 -Bleeding Controlled with Pressure -Treatment Response Procedure Tolerated Well #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 -Time 12:02 -Correct Patient Yes -Correct Side, Site, Position Yes -Correct Procedure Yes -Procedure Performed Yes -Type of Procedure Debridement -Clinical Debridement Subcutaneous -Post Debridement Size (cm) - Length 13.1 -Post Debridement Size (cm) - Width 13.1 -Post Debridement Size (cm) - Depth 0.1 -Total Square Cm 171.61 -Wound/Ulcer Outcome Not Healed -Ulcer Cleansing Rinsed/ Irrigated with Saline -Bioengineered Tissue No -Topical Lidocaine (%) 4 -Bleeding Controlled with Pressure -Treatment Response Procedure Tolerated Well #4 Left central TMA -Time 12:02 -Correct Patient Yes -Correct Side, Site, Position Yes -Correct Procedure Yes -Procedure Performed Yes -Type of Procedure Debridement -Clinical Debridement Subcutaneous -Post Debridement Size (cm) - Length 1.6 -Post Debridement Size (cm) - Width 0.6 -Post Debridement Size (cm) - Depth 0.3 -Total Square Cm 0.96 -Wound/Ulcer Outcome Not Healed -Ulcer Cleansing Rinsed/ Irrigated with Saline -Foul Odor after Cleansing No -Bioengineered Tissue No -Topical Lidocaine (%) 4 -Bleeding Controlled with Pressure -Treatment Response Procedure Tolerated Well #1 right medial heel -Time 12:04 -Correct Patient Yes -Correct Side, Site, Position Yes -Correct Procedure Yes -Procedure Performed Yes -Type of Procedure Debridement -Clinical Debridement Subcutaneous -Post Debridement Size (cm) - Length 1.5 -Post Debridement Size (cm) - Width 2.7 -Post Debridement Size (cm) - Depth 0.6 -Total Square Cm 4.05 -Wound/Ulcer Outcome Not Healed -Ulcer Cleansing Rinsed/ Irrigated with Saline -Foul Odor after Cleansing No -Bioengineered Tissue No -Topical Lidocaine (%) 4 -Bleeding Controlled with Pressure -Treatment Response Procedure Tolerated Well Pain Scale: 0-10 Numeric Is Patient Pain Free? Yes Wound debrided: bernstein cluster Laterality: Right Wound Grade/Stage: grade 1 Type of Debridement: Excisional debridement Anesthesia Used: 5% Lidocaine Gel Depth: in the subcutaneous layer Percentage of wound debrided: - - 25% Instrument Used: #15 blade Tissue Removed: devitalized subcutaneous, biofilm, slough, fibrous Severity: Fat Layer Exposed Amount of bleeding with debridement: Mild Bleeding Controlled with: Pressure Patient tolerated procedure well - Additional Wound Wound debrided: lateral foot Laterality: Left Wound Grade/Stage: grade 1 Type of Debridement: Excisional debridement Anesthesia Used: 5% Lidocaine Gel Depth: in the subcutaneous layer Percentage of wound debrided: 100 Instrument Used: #15 blade Tissue Removed: devitalized subcutaneous, biofilm, slough, fibrous Severity: Fat Layer Exposed Amount of bleeding with debridement: Mild Bleeding Controlled with: Pressure Patient tolerated procedure: Patient tolerated procedure well - Additional Wound Wound debrided: anterior ankle Laterality: Right Wound Grade/Stage: grade 1 Type of Debridement: Excisional debridement Anesthesia Used: 5% Lidocaine Gel Depth: in the subcutaneous layer Percentage of wound debrided: 100 Instrument Used: #15 blade Tissue Removed: devitalized subcutaneous, biofilm, slough, fibrousc Severity: Fat Layer Exposed Amount of bleeding with debridement: Mild Bleeding Controlled with: Pressure Patient tolerated procedure: Patient tolerated procedure well - Additional Wound Wound debrided: heel Laterality: Right Wound Grade/Stage: grade 3 Type of Debridement: Excisional debridement Anesthesia Used: 5% Lidocaine Gel Depth: in the subcutaneous layer Percentage of wound debrided: 100 Instrument Used: #15 blade Tissue Removed: devitalized subcutaneous, biofilm, slough, fibrous Severity: Fat Layer Exposed Amount of bleeding with debridement: Mild Bleeding Controlled with: Pressure Patient tolerated procedure: Patient tolerated procedure well - Additional Wound Wound debrided: dorsal 2nd toe Laterality: Right Wound Grade/Stage: grade 1 Type of Debridement: Excisional debridement Anesthesia Used: 5% Lidocaine Gel Depth: in the subcutaneous layer Percentage of wound debrided: 100 Instrument Used: #15 blade Tissue Removed: devitalized subcutaneous, biofilm, slough, fibrous Severity: Fat Layer Exposed Amount of bleeding with debridement: Mild Bleeding Controlled with: Pressure Patient tolerated procedure: Patient tolerated procedure well - Additional Wound Wound debrided: distal TMA site Laterality: Left Wound Grade/Stage: grade 1 Type of Debridement: Excisional debridement Anesthesia Used: 5% Lidocaine Gel Depth: in the subcutaneous layer Percentage of wound debrided: 100 Instrument Used: #15 blade Tissue Removed: devitalized subcutaneous, biofilm, slough, fibrous Severity: Fat Layer Exposed Amount of bleeding with debridement: Mild Bleeding Controlled with: Pressure Patient tolerated procedure: Patient tolerated procedure well Assessment/Plan Active Problems Lymphedema (Chronic) Venous insufficiency (Chronic) Lower extremity edema (Acute) Type 2 diabetes mellitus with diabetic polyneuropathy (Chronic) Ulcer of right lower extremity with fat layer exposed (Chronic) Ulcer of right foot with fat layer exposed (Chronic) Type 2 diabetes mellitus with diabetic polyneuropathy (Chronic) Malnutrition (Chronic) Obesity (Chronic) Assessment: Right heel ulcer with delayed healing. No left foot ulcer no infection. 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 right leg ulcers. Right ankle ulcer with delayed healing. right second toe ulcer. left foot ulcer. lymphedema and continued leg swelling. rule out peripheral vacular disease and venous insufficiency Plan: I discussed his case and treatment plan. Subcutaneous excisional debridement to all bilateral ulcer sites performed today as noted in the clinical panel. He was reassured there are no local signs of infection noted today. He is reassured no infection is noted. It is noted he completed a full course of advanced wound care product, epifix,application. To apply Regranex to the ulcer sites 12 hours at she does get it put I noticed a lot better time when he is able to coordinate this with home health or family assistance. If lack of assistance is noted he can resume only Elda use. . To maintain improved skin integrity by applying lac hydrin lotion to both legs daily. Continue circaid wraps bilateral legs daily; it is okay to apply tubigrip prior to application of CircAid foot wrap to better keep his wound dressings in place. To continue compression pump device daily; he is doing well with this. To proceed as previously advised with his lymphedema referral this week. To continue diuretic medications per primary care physician.To elevate legs at rest. Compliance is imperative and this was discussed again today. To continue with portion control for weight loss and proper glycemic control and nutritional supplementation to optimize healing. His hemoglobin A1c went from 9.0 to 7.4. I recommended he continues to decrease tension to the anterior right ankle ulcer site by returning to the cam walker boot; to weight-bear as tolerated. All of his questions were answered. He understands he is still at risk for limb loss. Due to the chronicity of the left lower extremity as well I recommend an updated left foot x-ray. The x-rays are reviewed without any gross fractures, dislocation, soft tissue emphysema, foreign body, or definitive osteomyelitis changes. There are some minimal reactive changes at the transmetatarsal amputation stump site. His venous and arterial vascular studies are over one year old. These are reordered today to assess his perfusion and edema status. This will need to be rescheduled; compliance was discussed. To follow-up at the wound care center in 1 week or call sooner if he has any questions or concerns.
[2017-10-07 11:30] VITALS: BP 144/68; PULSE 51; RESP 20; TEMP 36.3
--- NOTE | 2017-10-07 12:13 | PN.PCM_ITS ---
(1) Chronic ulcer of left foot with fat layer exposed Status: Chronic Current Visit: Yes Code(s): L97.522 - Non-pressure chronic ulcer of other part of left foot with fat layer exposed (2) Ulcer of right lower extremity with fat layer exposed Status: Chronic Current Visit: Yes Code(s): L97.912 - Non-pressure chronic ulcer of unspecified part of right lower leg with fat layer exposed (3) Ulcer of right foot with fat layer exposed Status: Chronic Current Visit: Yes Code(s): L97.512 - Non-pressure chronic ulcer of other part of right foot with fat layer exposed (4) Lymphedema Status: Chronic Current Visit: Yes Code(s): I89.0 - Lymphedema, not elsewhere classified (5) Venous insufficiency Status: Chronic Current Visit: Yes Code(s): I87.2 - Venous insufficiency ( chronic) (peripheral) (6) Peripheral vascular disease Status: Suspected Current Visit: Yes Code(s): I73.9 - Peripheral vascular disease, unspecified (7) Lower extremity edema Status: Acute Current Visit: Yes Code(s): R60.0 - Localized edema (8) Type 2 diabetes mellitus with diabetic polyneuropathy Status: Chronic Current Visit: Yes Code(s): E11.42 - Type 2 diabetes mellitus with diabetic polyneuropathy (9) Malnutrition Status: Chronic Current Visit: Yes Code(s): E46 - Unspecified protein- calorie malnutrition (10) Obesity Status: Chronic Current Visit: Yes Code(s): E66.9 - Obesity, unspecified Type of Wound Date of Service: 10/07/17 Chief Complaint: Right heel ulcer with delayed healing. 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 right leg ulcers. Right ankle ulcer with delayed healing. right second toe ulcer. Right third toe ulcer. Long thick toenails consistent with onychomycosis versus onychauxis. lymphedema and continued leg swelling History of Wound: 62 year old male was seen for right heel ulcer with chronic osteomyelitis, left foot delayed healing wound, right 2nd toe ulcer, right leg ulcer, and right ankle ulcer. He denies fever, chill, nausea, vomiting. He has Regranex at home and home health has been helping when he has help available with the dressing changes. He uses the compession pump 2-3 times a day with significant edema reduction. He is scheduled for updated noninvasive vascular study. He is rescheduled to be seen at [facility] tomorrow. He denies redness or odor. Progress of Wound: Improving - Physical Exam Vital Signs Temp Pulse Resp BP 97.4 F L 51 L 20 H 144/68 H 10/07/17 11:30 10/07/17 11:30 10/07/17 11:30 10/07/17 11:30 General: Alert, Oriented x3, Cooperative Extremities: No cyanosis, Capillary Refill Less than 3 Seconds, No Calf Tenderness, Diminished Peripheral Pulses, Edema, - - Left transmetatarsal amputation Skin: Ulcer/ Wound - No purulence, no erythema, streaking, no odor, no infection bilateral lower extremities. Peripheral and full epithelialization noted to lateral foot ulcer site that was present last week. He has continued epithelialization to the cluster of the right leg and the other wounds are getting smaller in size and with improved quality, - - His skin is atrophic and hairless bilateral lower extremities Wound Measurements and Assessment WC - Nurse 1 - General Ulcer Measurement Start: 09/23/17 11:13 Freq: Status: Active Protocol: Activity Type Activity Date Activity User E-Sign Co-Sign Detail Recorded Client Recorded Date Recorded By Document 10/07/17 11:30 DL [id number] 10/07/17 11:45 DL 10/07/17 11:30 Wound Center Nurse 1 [Ulcer Assessment] #13-right 2nd toe -Current Size (cm) - Length 0.7 -Current Size (cm) - Width 0.9 -Current Size (cm) - Depth 0.1 -Total Square Cm 0.63 -Photo Taken No -Exudate Amt None Present (0 %) -Wound Margin Distinct, Outline Attached -Granulation Amt Small (1-33%) -Granulation Quality [place] -Necrosis Amt Small (1-33%) -Necrotic Tissue Type Adherent Slough -Structure Exposed N/A -Texture (Susy-wound Skin Appearance) Scarring -Moisture (Susy-wound Skin Appearance No Abnormality ) -Color (Susy-wound Skin Appearance) Hemosiderin Staining -Temperature (Susy-wound Skin No Abnormality Appearance) (Pt Warm) -Ulcer Cleansing Wound Cleanser -Foul Odor after Cleansing No -Anesthetic Used 4% Lidocaine Solution #10 RIGHT ANKLE- ANTERIOR -Current Size (cm) - Length 2.3 -Current Size (cm) - Width 5.4 -Current Size (cm) - Depth 0.1 -Total Square Cm 12.42 -Photo Taken No -Exudate Amt Small (1-33%) -Exudate Type Serosanguineous -Wound Margin Distinct, Outline Attached -Granulation Amt Medium (34-66%) -Granulation Quality Hyper- granulation Red -Necrosis Amt Medium (34-66%) -Necrotic Tissue Type Adherent Slough -Structure Exposed N/A -Texture (Susy-wound Skin Appearance) Scarring -Moisture (Susy-wound Skin Appearance Dry/Scaly ) -Color (Susy-wound Skin Appearance) Hemosiderin Staining -Temperature (Susy-wound Skin No Abnormality Appearance) (Pt Warm) -Tenderness on Palpation (Susy-wound No Skin Appearance) -Ulcer Cleansing Wound Cleanser -Anesthetic Used 4% Lidocaine Solution #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 -Current Size (cm) - Length 5.4 -Current Size (cm) - Width 5 -Current Size (cm) - Depth 0.1 -Total Square Cm 27.0 -Photo Taken No -Exudate Amt None Present (0 %) -Wound Margin Indistinct, Non -Visible -Granulation Amt Medium (34-66%) -Granulation Quality [place] -Necrosis Amt Medium (34-66%) -Necrotic Tissue Type Adherent Slough -Structure Exposed N/A -Texture (Susy-wound Skin Appearance) Scarring -Moisture (Susy-wound Skin Appearance Dry/Scaly ) -Color (Susy-wound Skin Appearance) Hemosiderin Staining -Temperature (Susy-wound Skin No Abnormality Appearance) (Pt Warm) -Ulcer Cleansing Wound Cleanser -Foul Odor after Cleansing No -Anesthetic Used 4% Lidocaine Solution #4 Left central TMA -Current Size (cm) - Length 0.7 -Current Size (cm) - Width 0.3 -Current Size (cm) - Depth 0.2 -Total Square Cm 0.21 -Photo Taken No -Exudate Amt None Present (0 %) -Wound Margin Thickened -Granulation Amt Small (1-33%) -Granulation Quality Pale -Necrosis Amt Small (1-33%) -Necrotic Tissue Type Adherent Slough -Structure Exposed N/A -Texture (Susy-wound Skin Appearance) Localized Edema -Moisture (Susy-wound Skin Appearance Dry/Scaly ) -Color (Susy-wound Skin Appearance) Hemosiderin Staining -Temperature (Susy-wound Skin No Abnormality Appearance) (Pt Warm) -Ulcer Cleansing Wound Cleanser -Foul Odor after Cleansing No -Anesthetic Used 4% Lidocaine Solution #1 right medial heel -Current Size (cm) - Length 1.1 -Current Size (cm) - Width 2.1 -Current Size (cm) - Depth 0.4 -Total Square Cm 2.31 -Photo Taken No -Exudate Amt Small (1-33%) -Exudate Type Serosanguineous -Wound Margin Thickened -Granulation Amt Large (67-100%) -Granulation Quality [place] Red -Necrosis Amt Small (1-33%) -Necrotic Tissue Type Adherent Slough -Structure Exposed N/A -Texture (Susy-wound Skin Appearance) Callus -Moisture (Susy-wound Skin Appearance Dry/Scaly ) -Color (Susy-wound Skin Appearance) Hemosiderin Staining -Temperature (Susy-wound Skin No Abnormality Appearance) (Pt Warm) -Ulcer Cleansing Wound Cleanser -Foul Odor after Cleansing No -Anesthetic Used 4% Lidocaine Solution [Edema Assessment] -Right Calf (cm) 48.5 -Right Ankle (cm) 29.5 -Left Calf (cm) 45 -Left Ankle (cm) 28.3 WC - Nurse 2 - General Ulcer CM Notes Start: 09/23/17 11:13 Freq: Status: Active Protocol: Activity Type Activity Date Activity User E-Sign Co-Sign Detail Recorded Client Recorded Date Recorded By Document 10/07/17 12:02 [email or web address] 10/07/17 12:09 10/07/17 12:02 Wound Center Nurse 2 [Procedure/Treatment] #13-right 2nd toe -Time 12:05 -Correct Patient Yes -Correct Side, Site, Position Yes -Correct Procedure Yes -Procedure Performed Yes -Type of Procedure Debridement -Clinical Debridement Subcutaneous -Post Debridement Size (cm) - Length 0.8 -Post Debridement Size (cm) - Width 1.0 -Post Debridement Size (cm) - Depth 0.1 -Total Square Cm 0.80 -Wound/Ulcer Outcome Not Healed -Ulcer Cleansing Rinsed/ Irrigated with Saline -Foul Odor after Cleansing No -Bioengineered Tissue No -Topical Lidocaine (%) 4 -Bleeding Controlled with Pressure -Treatment Response Procedure Tolerated Well #10 RIGHT ANKLE- ANTERIOR -Time 12:06 -Correct Patient Yes -Correct Side, Site, Position Yes -Correct Procedure Yes -Procedure Performed Yes -Type of Procedure Debridement -Clinical Debridement Subcutaneous -Post Debridement Size (cm) - Length 2.4 -Post Debridement Size (cm) - Width 5.4 -Post Debridement Size (cm) - Depth 0.1 -Total Square Cm 12.96 -Wound/Ulcer Outcome Not Healed -Ulcer Cleansing Rinsed/ Irrigated with Saline -Foul Odor after Cleansing No -Bioengineered Tissue No -Topical Lidocaine (%) 4 -Bleeding Controlled with Pressure -Treatment Response Procedure Tolerated Well #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 -Time 12:06 -Correct Patient Yes -Correct Side, Site, Position Yes -Correct Procedure Yes -Procedure Performed Yes -Type of Procedure Debridement -Clinical Debridement Subcutaneous -Post Debridement Size (cm) - Length 5.5 -Post Debridement Size (cm) - Width 5.1 -Post Debridement Size (cm) - Depth 0.1 -Total Square Cm 28.05 -Wound/Ulcer Outcome Not Healed -Ulcer Cleansing Rinsed/ Irrigated with Saline -Foul Odor after Cleansing No -Bioengineered Tissue No -Topical Lidocaine (%) 4 -Bleeding Controlled with Pressure -Treatment Response Procedure Tolerated Well #4 Left central TMA -Time 12:06 -Correct Patient Yes -Correct Side, Site, Position Yes -Correct Procedure Yes -Procedure Performed Yes -Type of Procedure Debridement -Clinical Debridement Subcutaneous -Post Debridement Size (cm) - Length 0.8 -Post Debridement Size (cm) - Width 0.4 -Post Debridement Size (cm) - Depth 0.2 -Total Square Cm 0.32 -Wound/Ulcer Outcome Not Healed -Ulcer Cleansing Rinsed/ Irrigated with Saline -Foul Odor after Cleansing No -Bioengineered Tissue No -Topical Lidocaine (%) 4 -Bleeding Controlled with Pressure -Treatment Response Procedure Tolerated Well #1 right medial heel -Time 12:07 -Correct Patient Yes -Correct Side, Site, Position Yes -Correct Procedure Yes -Procedure Performed Yes -Type of Procedure Debridement -Clinical Debridement Subcutaneous -Post Debridement Size (cm) - Length 1.2 -Post Debridement Size (cm) - Width 2.2 -Post Debridement Size (cm) - Depth 0.4 -Total Square Cm 2.64 -Wound/Ulcer Outcome Not Healed -Ulcer Cleansing Rinsed/ Irrigated with Saline -Foul Odor after Cleansing No -Bioengineered Tissue No -Topical Lidocaine (%) 4 -Bleeding Controlled with Pressure -Treatment Response Procedure Tolerated Well [See Physician Procedure note for Specifics] Musculoskeletal: No Tenderness to Palpation of Joints or Extremities, Muscle Wasting, - - Compartment soft bilateral Neurological: - - Lack of epicritic sensation light touch bilateral lower extremities consistent with neuropathy Psych/Mental Status: Normal Affect, Appropriate Debridement Note Post-Debridement Measurements/Treatment WC - Nurse 2 - General Ulcer CM Notes Start: 09/23/17 11:13 Freq: Status: Active Protocol: Activity Type Activity Date Activity User E-Sign Co-Sign Detail Recorded Client Recorded Date Recorded By Document 09/23/17 11:58 TM [id number] 09/23/17 12:06 TM Document 09/30/17 19:24 TM [id number] 09/30/17 19:30 TM Document 10/07/17 12:02 TM [id number] 10/07/17 12:09 TM 09/23/17 09/30/17 10/07/17 11:58 19:24 12:02 Wound Center Nurse 2 #15 right lateral foot -Time 10:45 -Correct Patient Yes -Correct Side, Site, Position Yes -Correct Procedure Yes -Procedure Performed Yes -Type of Procedure Debridement -Clinical Debridement Subcutaneous -Post Debridement Size (cm) - Length 0.8 -Post Debridement Size (cm) - Width 0.4 -Post Debridement Size (cm) - Depth 0.1 -Total Square Cm 0.32 -Wound/Ulcer Outcome Not Healed -Ulcer Cleansing Rinsed/ Irrigated with Saline -Foul Odor after Cleansing No -Bioengineered Tissue No -Topical Lidocaine (%) 4 -Bleeding Controlled with Pressure -Treatment Response Procedure Tolerated Well #13-right 2nd toe -Time 12:01 10:45 12:05 -Correct Patient Yes Yes Yes -Correct Side, Site, Position Yes Yes Yes -Correct Procedure Yes Yes Yes -Procedure Performed Yes Yes Yes -Type of Procedure Debridement Debridement Debridement -Clinical Debridement Subcutaneous Subcutaneous Subcutaneous -Post Debridement Size (cm) - Length 1.0 0.6 0.8 -Post Debridement Size (cm) - Width 1.4 1.5 1.0 -Post Debridement Size (cm) - Depth 0.2 0.2 0.1 -Total Square Cm 1.40 0.90 0.80 -Wound/Ulcer Outcome Not Healed Not Healed Not Healed -Ulcer Cleansing Rinsed/ Rinsed/ Rinsed/ Irrigated with Irrigated with Irrigated with Saline Saline Saline -Foul Odor after Cleansing No No No -Bioengineered Tissue No No No -Topical Lidocaine (%) 4 4 4 -Bleeding Controlled with Pressure Pressure Pressure -Treatment Response Procedure Procedure Procedure Tolerated Well Tolerated Well Tolerated Well #10 RIGHT ANKLE- ANTERIOR -Time 12:02 10:45 12:06 -Correct Patient Yes Yes Yes -Correct Side, Site, Position Yes Yes Yes -Correct Procedure Yes Yes Yes -Procedure Performed Yes Yes Yes -Type of Procedure Debridement Debridement Debridement -Clinical Debridement Subcutaneous Subcutaneous Subcutaneous -Post Debridement Size (cm) - Length 2.3 2.5 2.4 -Post Debridement Size (cm) - Width 5.5 6.5 5.4 -Post Debridement Size (cm) - Depth 0.1 0.1 0.1 -Total Square Cm 12.65 16.25 12.96 -Wound/Ulcer Outcome Not Healed Not Healed Not Healed -Ulcer Cleansing Rinsed/ Rinsed/ Rinsed/ Irrigated with Irrigated with Irrigated with Saline Saline Saline -Foul Odor after Cleansing No No No -Bioengineered Tissue No No No -Topical Lidocaine (%) 4 4 4 -Bleeding Controlled with Pressure Pressure Pressure -Treatment Response Procedure Procedure Procedure Tolerated Well Tolerated Well Tolerated Well #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 -Time 12: 10:45 12:06 -Correct Patient Yes Yes Yes -Correct Side, Site, Position Yes Yes Yes -Correct Procedure Yes Yes Yes -Procedure Performed Yes Yes Yes -Type of Procedure Debridement Debridement Debridement -Clinical Debridement Subcutaneous Subcutaneous Subcutaneous -Post Debridement Size (cm) - Length 13.1 15.7 5.5 -Post Debridement Size (cm) - Width 13.1 7.7 5.1 -Post Debridement Size (cm) - Depth 0.1 0.1 0.1 -Total Square Cm 171.61 120.89 28.05 -Wound/Ulcer Outcome Not Healed Not Healed Not Healed -Ulcer Cleansing Rinsed/ Rinsed/ Rinsed/ Irrigated with Irrigated with Irrigated with Saline Saline Saline -Foul Odor after Cleansing No No -Bioengineered Tissue No No No -Topical Lidocaine (%) 4 4 4 -Bleeding Controlled with Pressure Pressure Pressure -Treatment Response Procedure Procedure Procedure Tolerated Well Tolerated Well Tolerated Well #4 Left central TMA -Time 12:02 10:45 12:06 -Correct Patient Yes Yes Yes -Correct Side, Site, Position Yes Yes Yes -Correct Procedure Yes Yes Yes -Procedure Performed Yes Yes Yes -Type of Procedure Debridement Debridement Debridement -Clinical Debridement Subcutaneous Subcutaneous Subcutaneous -Post Debridement Size (cm) - Length 1.6 1.1 0.8 -Post Debridement Size (cm) - Width 0.6 0.2 0.4 -Post Debridement Size (cm) - Depth 0.3 0.2 0.2 -Total Square Cm 0.96 0.22 0.32 -Wound/Ulcer Outcome Not Healed Not Healed Not Healed -Ulcer Cleansing Rinsed/ Rinsed/ Rinsed/ Irrigated with Irrigated with Irrigated with Saline Saline Saline -Foul Odor after Cleansing No No No -Bioengineered Tissue No No No -Topical Lidocaine (%) 4 4 4 -Bleeding Controlled with Pressure Pressure Pressure -Treatment Response Procedure Procedure Procedure Tolerated Well Tolerated Well Tolerated Well #1 right medial heel -Time 12:04 10:45 12:07 -Correct Patient Yes Yes Yes -Correct Side, Site, Position Yes Yes Yes -Correct Procedure Yes Yes Yes -Procedure Performed Yes Yes Yes -Type of Procedure Debridement Debridement Debridement -Clinical Debridement Subcutaneous Subcutaneous Subcutaneous -Post Debridement Size (cm) - Length 1.5 1.4 1.2 -Post Debridement Size (cm) - Width 2.7 2.6 2.2 -Post Debridement Size (cm) - Depth 0.6 0.2 0.4 -Total Square Cm 4.05 3.64 2.64 -Wound/Ulcer Outcome Not Healed Not Healed Not Healed -Ulcer Cleansing Rinsed/ Rinsed/ Rinsed/ Irrigated with Irrigated with Irrigated with Saline Saline Saline -Foul Odor after Cleansing No No No -Bioengineered Tissue No No No -Topical Lidocaine (%) 4 4 4 -Bleeding Controlled with Pressure Pressure Pressure -Treatment Response Procedure Procedure Procedure Tolerated Well Tolerated Well Tolerated Well Pain Scale: 0-10 Numeric Is Patient Pain Free? Yes Yes Wound debrided: leg cluster Laterality: Right Wound Grade/Stage: grade 1 Type of Debridement: Excisional debridement Anesthesia Used: 5% Lidocaine Gel Depth: in the subcutaneous layer Percentage of wound debrided: - - 15 Instrument Used: #15 blade Tissue Removed: fibrous, devitalized subcutaneous, biofilm, slough Severity: Fat Layer Exposed Amount of bleeding with debridement: Mild Bleeding Controlled with: Pressure Patient tolerated procedure well - Additional Wound Wound debrided: anterior leg Laterality: Right Wound Grade/Stage: grade 1 Type of Debridement: Excisional debridement Anesthesia Used: 5% Lidocaine Gel Depth: in the subcutaneous layer Percentage of wound debrided: 100 Instrument Used: #15 blade Tissue Removed: fibrous, devitalized subcutaneous, biofilm, slough Severity: Fat Layer Exposed Amount of bleeding with debridement: Mild Bleeding Controlled with: Pressure Patient tolerated procedure: Patient tolerated procedure well - Additional Wound Wound debrided: dorsal 2nd toe Laterality: Right Wound Grade/Stage: grade 1 Type of Debridement: Excisional debridement Anesthesia Used: 5% Lidocaine Gel Depth: in the subcutaneous layer Percentage of wound debrided: 100 Instrument Used: #15 blade Tissue Removed: fibrous, devitalized subcutaneous, biofilm, slough Severity: Fat Layer Exposed Amount of bleeding with debridement: Mild Bleeding Controlled with: Pressure Patient tolerated procedure: Patient tolerated procedure well - Additional Wound Wound debrided: heel Laterality: Right Wound Grade/Stage: grade 3 Type of Debridement: Excisional debridement Anesthesia Used: 5% Lidocaine Gel Depth: in the subcutaneous layer Percentage of wound debrided: 100 Instrument Used: #15 blade Tissue Removed: fibrous, devitalized subcutaneous, biofilm, slough Amount of bleeding with debridement: Mild Bleeding Controlled with: Pressure Patient tolerated procedure: Patient tolerated procedure well - Additional Wound Wound debrided: distal TMA site Laterality: Left Wound Grade/Stage: grade 1 Type of Debridement: Excisional debridement Anesthesia Used: 4% Lidocaine Solution Depth: in the subcutaneous layer Percentage of wound debrided: 100 Instrument Used: #15 blade Tissue Removed: fibrous, devitalized subcutaneous, biofilm, slough Severity: Fat Layer Exposed Amount of bleeding with debridement: Mild Bleeding Controlled with: Pressure Patient tolerated procedure: Patient tolerated procedure well Assessment/Plan Active Problems Lymphedema (Chronic) Venous insufficiency (Chronic) Lower extremity edema (Acute) Type 2 diabetes mellitus with diabetic polyneuropathy (Chronic) Ulcer of right lower extremity with fat layer exposed (Chronic) Chronic ulcer of left foot with fat layer exposed (Chronic) Ulcer of right foot with fat layer exposed (Chronic) Type 2 diabetes mellitus with diabetic polyneuropathy (Chronic) Malnutrition (Chronic) Obesity (Chronic) Assessment: Right heel ulcer with delayed healing lateral left foot ulcer healed. 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 right leg ulcers. Right ankle ulcer with delayed healing. right second toe ulcer. left foot ulcer. lymphedema and continued leg swelling. rule out peripheral vacular disease and venous insufficiency Plan: I discussed his case and treatment plan. Subcutaneous excisional debridement to all bilateral ulcer sites performed today as noted in the clinical panel. He was reassured there are no local signs of infection noted today. He is reassured no infection is noted. It is noted he completed a full course of advanced wound care product, epifix,application. To apply Regranex to the ulcer sites 12 hours at she does get it put I noticed a lot better time when he is able to coordinate this with home health or family assistance. If lack of assistance is noted he can resume only [place] use. . To maintain improved skin integrity by applying lac hydrin lotion to both legs daily. Continue circaid wraps bilateral legs daily; it is okay to apply tubigrip prior to application of CircAid foot wrap to better keep his wound dressings in place. To continue compression pump device daily; he is doing well with this. To proceed as previously advised with his lymphedema referral this week. To continue diuretic medications per primary care physician.To elevate legs at rest. Compliance is imperative and this was discussed again today. To continue with portion control for weight loss and proper glycemic control and nutritional supplementation to optimize healing. His hemoglobin A1c went from 9.0 to 7.4. I recommended he continues to decrease tension to the anterior right ankle ulcer site by returning to the cam walker boot; to weight-bear as tolerated. All of his questions were answered. He understands he is still at risk for limb loss. Due to the chronicity of the left lower extremity as well I recommend an updated left foot x-ray. The x-rays are reviewed without any gross fractures, dislocation, soft tissue emphysema, foreign body, or definitive osteomyelitis changes. There are some minimal reactive changes at the transmetatarsal amputation stump site. His venous and arterial vascular studies are over one year old. These are reordered today to assess his perfusion and edema status. This was rescheduled he will get his updated arterial exam tomorrow. To follow-up at the wound care center in 1 week or call sooner if he has any questions or concerns.
--- NOTE | 2017-10-09 10:02 | VDLE_ITS ---
Reason For Study: Non-healing wounds RIGHT LEFT GSV is normal. GSV is normal. CFV is compressible, spontaneous, phasic, CFV is compressible, spontaneous, phasic, competent and demonstrates normal competent, and demonstrates normal augmentation. augmentation. FV is compressible, spontaneous, phasic, FV is compressible, spontaneous, phasic, competent and demonstrates normal competent and demonstrates normal augmentation. augmentation. POP V is compressible, spontaneous, phasic, POP V is compressible, spontaneous, phasic, competent and demonstrates normal competent and demonstrates normal augmentation. augmentation. T/P Trunk is compressible. T/P Trunk is compressible. PTV is compressible. PTV is compressible. SFJ is INCOMPETENT SFJ is INCOMPETENT GSV is INCOMPETENT with reflux greater GSV is INCOMPETENT with reflux greater than .5 sec and diameter of .77 x .75 cm than .5 sec and diameter of.61 x .61 cm SSV is INCOMPETENT with reflux greater SSV is competent. than .5 sec and diameter of .43 x .42 cm. Procedure Exam performed in department. A preliminary report was called and/or faxed to [facility]. Interpretation Summary Deep veins of the lower extremities are bilaterally patent and compressible segmentally. There is no evidence of deep vein thrombosis on either side. Valvular competence appears intact within the proximal deep venous systems bilaterally. The greater saphenous veins appear bilaterally patent and compressible segmentally. Sapheno-femoral junctions are bilaterally incompetent . Segmental valvular incompetence is noted within the greater saphenous veins bilaterally. The right small saphenous vein is patent and incompetent. The left small saphenous vein is patent and competent. Ordering Physician: Gemini Hernández Referring Physician: Gemini Hernández Performed By: Lilia Stafford RVT
--- NOTE | 2017-10-11 18:32 | LEAS ---
Arterial Study - Arterial Study Arterial Study: This is a 62-year-old male with a history of diabetes mellitus, hypertension, obesity, and bilateral toe amputations. The patient presents with chronic nonhealing wounds of the lower extremities bilaterally. Suspecting the presence of atherosclerotic peripheral arterial occlusive disease, the patient was brought to the noninvasive vascular laboratory at this time for the purpose of bilateral noninvasive lower extremity arterial assessment. Doppler signal assessment was used to evaluate the pulses at ankle level bilaterally. The posterior tibial and dorsalis pedis pulses were triphasic bilaterally. Segmental limb pressures were obtained at ankle level bilaterally. The right ankle pressure, as determined by posterior tibial and dorsalis pedis pulses, could not be determined due to the noncompressibility of the vasculature. The left ankle pressure, as determined by posterior tibial pulse, was measured at 202 mmHg. The left ankle pressure, as determined by dorsalis pedis pulse, was measured at 199 mmHg. Pulse-volume recordings were obtained bilaterally and segmentally. Waveform amplitudes appeared to be satisfactory at all levels bilaterally, including low thigh, calf, and ankle levels. The resting right ankle-brachial index could not be calculated due to the noncompressibility of the vasculature. The resting left ankle-brachial index was calculated to be 1.15. Impression: Based upon the findings of this resting noninvasive lower extremity arterial study, there is evidence of arterial calcification, rendering arterial pressures at ankle level in the right lower extremity unobtainable. However, triphasic waveforms were noted at ankle level bilaterally, suggesting relatively normal arterial flow at ankle level bilaterally. The resting left ankle-brachial index is normal. In summary, there is evidence of arterial calcification in the right lower extremity, rendering the arterial tree at ankle level noncompressible. Otherwise, there is no specific evidence of arterial occlusive disease in the lower extremities.
== END 2017-10-13 23:59 ==
LOC: CVS 10:00
PROVIDERS: Family Provider Family Medicine; PCP Family Medicine; Visit Provider Podiatrist
DX: E11.622 Type 2 diabetes mellitus with other skin ulcer (principal); E11.51 Type 2 diabetes mellitus with diabetic peripheral angiopathy without gangrene; L97.512 Non-pressure chronic ulcer of other part of right foot with fat layer exposed; E11.621 Type 2 diabetes mellitus with foot ulcer; R60.0 Localized edema; E11.42 Type 2 diabetes mellitus with diabetic polyneuropathy; E66.9 Obesity, unspecified; Z71.3 Dietary counseling and surveillance; I89.0 Lymphedema, not elsewhere classified; L97.412 Non-pressure chronic ulcer of right heel and midfoot with fat layer exposed; L97.812 Non-pressure chronic ulcer of other part of right lower leg with fat layer exposed; L97.312 Non-pressure chronic ulcer of right ankle with fat layer exposed; T87.89 Other complications of amputation stump; Y83.8 Other surgical procedures as the cause of abnormal reaction of the patient, or of later complication, without mention of misadventure at the time of the procedure; L97.522 Non-pressure chronic ulcer of other part of left foot with fat layer exposed
CPT/HCPCS: 11042; 11045; 93923; 93970

== ENCOUNTER 2017-10-22 11:00 | Outpatient (RCR) | payer MEDICARE, MEDICAID, SELFPAY ==
--- NOTE | 2017-10-08 15:57 | HP.OTEVAL_ITS ---
Patient's Visit Information [place] IVY is a 62 year old M, referred to Occupational Therapy by Gemini Hernández DPM, with a diagnosis of Bilateral LE lymphedema. Date of Evaluation: 10/08/17 Occupational Therapist: Graciela Pulliam, WILLIAN/Staci, CHT - Subjective Subjective: PT states he has been having swelling in bilateral LE for some time - states within the last year swelling has increased and pt is currently non wt. bearing to right LE due to wound on right LE, and lost toes on left foot. pt states he is having incrased difficulty standing with walker. pt has electirc scooter, circaids to bilateral LE, and lymphedema pump. pts right LE circaid is short and pt should get longer circaide along with foot peices. Pt states he has a nurse that comes in 2x a day 5 days a week. Pt states he has a house aide that comes 3 x a day to assist with all bathing and dressing tasks. - Lymphedema (Circumferential Measure) Mid-foot: R/L 31cm/ 32cm Ankle: R/L 36cm/ 34cm Lower calf: R/L 38cm/ 32cm Largest calf: R/L 52cm/ 46cm Below knee: R/L 48cm/ 48cm - Lower Limb Functional Index Lower Extremity Functional Score: 7 - Goals Demonstrate adequate knowledge therapeutic exercises by d/c: Yes - Rehabilitation General Assessment: Pt demo with bilateral LE lymphedema- pt is currently well equiped with a home compression unit he is using 2 x a day for 60 min and a nurse assisting pt with his LE. Therapy rec'd and ed. pt on lymph stim ex and need to cont with compression garments when up at all times. pt demo understanding. PT given HEP and rec'd where to order compression alternatives from ie. [facility], [facility] etc. pt demo understanding. Rehabilitation Potential: Questionable - Anticipated Interventions Anticipated Interventions: Education re assistive Equipment, Education re Diagnosis, Education re Life-long lymphedema Management, Home Program - Visit Plan General Plan: Pt was given a HEP TEXT: Thank you for the opportunity to evaluate your patient. For Medicare and Medicare HMO plans, please review the plan of care and approve it. It will need to be FAXED BACK to us at [phone] for Medicare purposes. Please let me know if there are questions or concerns regarding this plan of care. Physician Signature: Date:
--- NOTE | 2017-10-22 11:10 | HP.OTDCSUM ---
HP - OT D/C Summary It has been my pleasure to treat [place] [facility] under orders from Gemini Hernández DPM, for the diagnosis of Bilateral LE lymphedema for a total of 2 visit(s). Please see the following information for a summary of their discharge status. - Objective Objective/Function: pt demo understanding of Lymphedema mtg. and use of his ex and home pump. - Goals Patient Goals: Learn how to Manage Lymphedema Demonstrate adequate knowledge therapeutic exercises by d/c: Yes - Plan Plan: D/C - D/C Information Discharge Comments: Pt demo understanding of lymphedema mtg. use of home lymphedema pump and circaide. Pt demo understading of ex and skin care. Pt d/c at this time with [facility] If there are questions or concerns regarding this patient's occupational therapy, please fell free to call me at [phone]. Thank you for the referral of this patient. Sincerely, Graciela Pulliam, OTR/L, CHT
== END 2017-10-22 19:00 | disposition home or self-care (01) ==
LOC: OT 11:00
PROVIDERS: Family Provider Family Medicine; PCP Family Medicine; Visit Provider Podiatrist
DX: I89.0 Lymphedema, not elsewhere classified (principal); I87.2 Venous insufficiency (chronic) (peripheral); L97.929 Non-pressure chronic ulcer of unspecified part of left lower leg with unspecified severity; L97.919 Non-pressure chronic ulcer of unspecified part of right lower leg with unspecified severity
CPT/HCPCS: 97110; 97166; 97530

== ENCOUNTER 2017-11-04 11:00 | Outpatient (RCR) | payer MEDICARE, MEDICAID, SELFPAY ==
[2017-10-14 00:32] VITALS: BP 144/68; PULSE 51; RESP 20; TEMP 36.3
[2017-10-14 12:10] VITALS: BP 173/77; PULSE 77; RESP 20; TEMP 36.6
--- NOTE | 2017-10-14 13:18 | PN.PCM_ITS ---
(1) Ulcer of right lower extremity with fat layer exposed Status: Chronic Current Visit: Yes Code(s): L97.912 - Non-pressure chronic ulcer of unspecified part of right lower leg with fat layer exposed (2) Ulcer of left lower extremity with fat layer exposed Status: Resolved Current Visit: Yes Code(s): L97.922 - Non-pressure chronic ulcer of unspecified part of left lower leg with fat layer exposed (3) Lymphedema Status: Chronic Current Visit: Yes Code(s): I89.0 - Lymphedema, not elsewhere classified (4) Venous insufficiency Status: Chronic Current Visit: Yes Code(s): I87.2 - Venous insufficiency ( chronic) (peripheral) (5) Peripheral vascular disease Status: Suspected Current Visit: Yes Code(s): I73.9 - Peripheral vascular disease, unspecified (6) Lower extremity edema Status: Acute Current Visit: Yes Code(s): R60.0 - Localized edema (7) Type 2 diabetes mellitus with diabetic polyneuropathy Status: Chronic Current Visit: Yes Code(s): E11.42 - Type 2 diabetes mellitus with diabetic polyneuropathy (8) Physical deconditioning Status: Chronic Current Visit: Yes Code(s): R53.81 - Other malaise (9) Malnutrition Status: Chronic Current Visit: Yes Code(s): E46 - Unspecified protein- calorie malnutrition (10) Obesity Status: Chronic Current Visit: Yes Code(s): E66.9 - Obesity, unspecified Type of Wound Date of Service: 10/14/17 Chief Complaint: Right heel ulcer with delayed healing. 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 right leg ulcers. Right ankle ulcer with delayed healing. right second toe ulcer. Right third toe ulcer. lymphedema and continued leg swelling History of Wound: 62 year old male was seen for right heel ulcer with chronic osteomyelitis, left foot delayed healing wound, right 2nd toe ulcer, right leg ulcer, and right ankle ulcer. He denies fever, chill, nausea, vomiting. He has Regranex at home and home health has been helping when he has help available with the dressing changes. He uses the compession pump 2-3 times a day with significant edema reduction. He is scheduled for updated noninvasive vascular study. He is rescheduled to be seen at [facility] tomorrow. He denies redness or odor. Progress of Wound: Improving - Physical Exam Vital Signs Temp Pulse Resp BP 97.8 F 77 20 H 173/77 H 10/14/17 12:10 10/14/17 12:10 10/14/17 12:10 10/14/17 12:10 General: Alert, Oriented x3, Cooperative Extremities: No cyanosis, Capillary Refill Less than 3 Seconds, No Calf Tenderness - Negative Keara and Simmons sign bilateral, Diminished Peripheral Pulses, Edema - Bilateral lower extremities consistent with lymphedema and venous insufficiency Skin: Ulcer/ Wound - No purulence, no erythema, streaking, no odor, no infection bilateral. Atrophic skin bilateral Wound Measurements and Assessment WC - Nurse 1 - General Ulcer Measurement Start: 10/14/17 11:49 Freq: Status: Active Protocol: Activity Type Activity Date Activity User E-Sign Co-Sign Detail Recorded Client Recorded Date Recorded By Document 10/14/17 12:10 DL [id number] 10/14/17 12:14 DL 10/14/17 12:10 Wound Center Nurse 1 [Ulcer Assessment] #13-right 2nd toe -Current Size (cm) - Length 0.5 -Current Size (cm) - Width 1 -Current Size (cm) - Depth 0.1 -Total Square Cm 0.5 -Photo Taken No -Exudate Amt None Present (0 %) -Wound Margin Thickened -Granulation Amt Small (1-33%) -Granulation Quality [place] -Necrosis Amt Small (1-33%) -Necrotic Tissue Type Adherent Slough -Structure Exposed N/A -Texture (Susy-wound Skin Appearance) Scarring -Moisture (Susy-wound Skin Appearance Dry/Scaly ) -Color (Susy-wound Skin Appearance) Hemosiderin Staining -Temperature (Susy-wound Skin No Abnormality Appearance) (Pt Warm) -Tenderness on Palpation (Susy-wound No Skin Appearance) -Ulcer Cleansing Wound Cleanser -Foul Odor after Cleansing No -Anesthetic Used 4% Lidocaine Solution #10 RIGHT ANKLE- ANTERIOR -Current Size (cm) - Length 1.8 -Current Size (cm) - Width 2.2 -Current Size (cm) - Depth 0.1 -Total Square Cm 3.96 -Photo Taken No -Exudate Amt Small (1-33%) -Exudate Type Serosanguineous -Wound Margin Thickened -Granulation Amt Large (67-100%) -Granulation Quality Hyper- granulation Red -Necrosis Amt Small (1-33%) -Necrotic Tissue Type Adherent Slough -Structure Exposed N/A -Texture (Susy-wound Skin Appearance) Scarring -Moisture (Susy-wound Skin Appearance Dry/Scaly ) -Color (Susy-wound Skin Appearance) Hemosiderin Staining -Temperature (Susy-wound Skin No Abnormality Appearance) (Pt Warm) -Tenderness on Palpation (Susy-wound No Skin Appearance) -Ulcer Cleansing Wound Cleanser -Foul Odor after Cleansing No -Anesthetic Used 4% Lidocaine Solution #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 -Current Size (cm) - Length 8 -Current Size (cm) - Width 9 -Current Size (cm) - Depth 0.1 -Total Square Cm 72 -Photo Taken No -Exudate Amt None Present (0 %) -Wound Margin Indistinct, Non -Visible -Granulation Amt Large (67-100%) -Granulation Quality Pale -Necrosis Amt Small (1-33%) -Necrotic Tissue Type Adherent Slough -Structure Exposed N/A -Texture (Susy-wound Skin Appearance) Scarring -Moisture (Susy-wound Skin Appearance Dry/Scaly ) -Color (Susy-wound Skin Appearance) Hemosiderin Staining -Temperature (Susy-wound Skin No Abnormality Appearance) (Pt Warm) -Ulcer Cleansing Wound Cleanser -Foul Odor after Cleansing No -Anesthetic Used 4% Lidocaine Solution #4 Left central TMA -Current Size (cm) - Length 0.9 -Current Size (cm) - Width 0.4 -Current Size (cm) - Depth 0.2 -Total Square Cm 0.36 -Photo Taken No -Exudate Amt None Present (0 %) -Exudate Type Serosanguineous -Wound Margin Thickened -Granulation Amt Large (67-100%) -Granulation Quality Pale -Necrosis Amt Small (1-33%) -Necrotic Tissue Type Adherent Slough -Structure Exposed N/A -Texture (Susy-wound Skin Appearance) Scarring -Moisture (Susy-wound Skin Appearance Dry/Scaly ) -Color (Susy-wound Skin Appearance) Hemosiderin Staining -Temperature (Susy-wound Skin No Abnormality Appearance) (Pt Warm) -Ulcer Cleansing Wound Cleanser -Foul Odor after Cleansing No -Anesthetic Used 4% Lidocaine Solution #1 right medial heel -Current Size (cm) - Length 1.3 -Current Size (cm) - Width 2.2 -Current Size (cm) - Depth 0.2 -Total Square Cm 2.86 -Photo Taken No -Exudate Amt Small (1-33%) -Exudate Type Serosanguineous -Wound Margin Distinct, Outline Attached -Granulation Amt Large (67-100%) -Granulation Quality [place] -Necrosis Amt Small (1-33%) -Necrotic Tissue Type Adherent Slough -Structure Exposed N/A -Texture (Susy-wound Skin Appearance) Scarring -Moisture (Susy-wound Skin Appearance Dry/Scaly ) -Color (Susy-wound Skin Appearance) Hemosiderin Staining -Temperature (Susy-wound Skin No Abnormality Appearance) (Pt Warm) -Ulcer Cleansing Wound Cleanser -Foul Odor after Cleansing No -Anesthetic Used 4% Lidocaine Solution [Edema Assessment] -Right Calf (cm) 50 -Right Ankle (cm) 29 -Left Calf (cm) 49 -Left Ankle (cm) 29.3 WC - Nurse 2 - General Ulcer CM Notes Start: 10/14/17 11:49 Freq: Status: Active Protocol: Activity Type Activity Date Activity User E-Sign Co-Sign Detail Recorded Client Recorded Date Recorded By Document 10/14/17 12:16 [id number] 10/14/17 12:30 10/14/17 12:16 Wound Center Nurse 2 [Procedure/Treatment] #13-right 2nd toe -Time 12:25 -Correct Patient Yes -Correct Side, Site, Position Yes -Correct Procedure Yes -Procedure Performed Yes -Type of Procedure Debridement -Clinical Debridement Subcutaneous -Post Debridement Size (cm) - Length 0.6 -Post Debridement Size (cm) - Width 1.1 -Post Debridement Size (cm) - Depth 0.1 -Total Square Cm 0.66 -Wound/Ulcer Outcome Not Healed -Ulcer Cleansing Rinsed/ Irrigated with Saline -Foul Odor after Cleansing No -Bioengineered Tissue No -Topical Lidocaine (%) 4 -Bleeding Controlled with Pressure -Treatment Response Procedure Tolerated Well #10 RIGHT ANKLE- ANTERIOR -Time 12:26 -Correct Patient Yes -Correct Side, Site, Position Yes -Correct Procedure Yes -Procedure Performed Yes -Type of Procedure Debridement -Clinical Debridement Subcutaneous -Post Debridement Size (cm) - Length 1.9 -Post Debridement Size (cm) - Width 2.3 -Post Debridement Size (cm) - Depth 0.1 -Total Square Cm 4.37 -Wound/Ulcer Outcome Not Healed -Ulcer Cleansing Rinsed/ Irrigated with Saline -Foul Odor after Cleansing No -Bioengineered Tissue No -Topical Lidocaine (%) 4 -Bleeding Controlled with Pressure -Treatment Response Procedure Tolerated Well #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 -Time 12:26 -Correct Patient Yes -Correct Side, Site, Position Yes -Correct Procedure Yes -Procedure Performed Yes -Type of Procedure Debridement -Clinical Debridement Subcutaneous -Post Debridement Size (cm) - Length 8.1 -Post Debridement Size (cm) - Width 9.1 -Post Debridement Size (cm) - Depth 0.1 -Total Square Cm 73.71 -Wound/Ulcer Outcome Not Healed -Ulcer Cleansing Rinsed/ Irrigated with Saline -Foul Odor after Cleansing No -Bioengineered Tissue No -Topical Lidocaine (%) 4 -Bleeding Controlled with Pressure -Treatment Response Procedure Tolerated Well #4 Left central TMA -Time 12:27 -Correct Patient Yes -Correct Side, Site, Position Yes -Correct Procedure Yes -Procedure Performed Yes -Type of Procedure Debridement -Clinical Debridement Subcutaneous -Post Debridement Size (cm) - Length 1.0 -Post Debridement Size (cm) - Width 0.5 -Post Debridement Size (cm) - Depth 0.2 -Total Square Cm 0.50 -Wound/Ulcer Outcome Not Healed -Ulcer Cleansing Rinsed/ Irrigated with Saline -Foul Odor after Cleansing No -Bioengineered Tissue No -Topical Lidocaine (%) 4 -Bleeding Controlled with Pressure -Treatment Response Procedure Tolerated Well #1 right medial heel -Time 12:28 -Correct Patient Yes -Correct Side, Site, Position Yes -Correct Procedure Yes -Procedure Performed Yes -Type of Procedure Debridement -Clinical Debridement Subcutaneous -Post Debridement Size (cm) - Length 1.4 -Post Debridement Size (cm) - Width 2.3 -Post Debridement Size (cm) - Depth 0.2 -Total Square Cm 3.22 -Wound/Ulcer Outcome Not Healed -Ulcer Cleansing Rinsed/ Irrigated with Saline -Foul Odor after Cleansing No -Bioengineered Tissue No -Topical Lidocaine (%) 4 -Bleeding Controlled with Pressure -Treatment Response Procedure Tolerated Well [See Physician Procedure note for Specifics] Pain Scale: 0-10 Numeric [Pain] -Is Patient Pain Free? Yes Musculoskeletal: No Tenderness to Palpation of Joints or Extremities, Muscle Wasting, - - Left transmetatarsal amputation. Right hallux amputation. Compartments bilateral lower extremities remain soft Neurological: - - Lack of epicritic sensation light touch bilateral lower extremities Psych/Mental Status: Normal Affect, Appropriate Debridement Note Post-Debridement Measurements/Treatment WC - Nurse 2 - General Ulcer CM Notes Start: 10/14/17 11:49 Freq: Status: Active Protocol: Activity Type Activity Date Activity User E-Sign Co-Sign Detail Recorded Client Recorded Date Recorded By Document 10/14/17 12:16 [id number] 10/14/17 12:30 10/14/17 12:16 Wound Center Nurse 2 #13-right 2nd toe -Time 12:25 -Correct Patient Yes -Correct Side, Site, Position Yes -Correct Procedure Yes -Procedure Performed Yes -Type of Procedure Debridement -Clinical Debridement Subcutaneous -Post Debridement Size (cm) - Length 0.6 -Post Debridement Size (cm) - Width 1.1 -Post Debridement Size (cm) - Depth 0.1 -Total Square Cm 0.66 -Wound/Ulcer Outcome Not Healed -Ulcer Cleansing Rinsed/ Irrigated with Saline -Foul Odor after Cleansing No -Bioengineered Tissue No -Topical Lidocaine (%) 4 -Bleeding Controlled with Pressure -Treatment Response Procedure Tolerated Well #10 RIGHT ANKLE- ANTERIOR -Time 12:26 -Correct Patient Yes -Correct Side, Site, Position Yes -Correct Procedure Yes -Procedure Performed Yes -Type of Procedure Debridement -Clinical Debridement Subcutaneous -Post Debridement Size (cm) - Length 1.9 -Post Debridement Size (cm) - Width 2.3 -Post Debridement Size (cm) - Depth 0.1 -Total Square Cm 4.37 -Wound/Ulcer Outcome Not Healed -Ulcer Cleansing Rinsed/ Irrigated with Saline -Foul Odor after Cleansing No -Bioengineered Tissue No -Topical Lidocaine (%) 4 -Bleeding Controlled with Pressure -Treatment Response Procedure Tolerated Well #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 -Time 12:26 -Correct Patient Yes -Correct Side, Site, Position Yes -Correct Procedure Yes -Procedure Performed Yes -Type of Procedure Debridement -Clinical Debridement Subcutaneous -Post Debridement Size (cm) - Length 8.1 -Post Debridement Size (cm) - Width 9.1 -Post Debridement Size (cm) - Depth 0.1 -Total Square Cm 73.71 -Wound/Ulcer Outcome Not Healed -Ulcer Cleansing Rinsed/ Irrigated with Saline -Foul Odor after Cleansing No -Bioengineered Tissue No -Topical Lidocaine (%) 4 -Bleeding Controlled with Pressure -Treatment Response Procedure Tolerated Well #4 Left central TMA -Time 12:27 -Correct Patient Yes -Correct Side, Site, Position Yes -Correct Procedure Yes -Procedure Performed Yes -Type of Procedure Debridement -Clinical Debridement Subcutaneous -Post Debridement Size (cm) - Length 1.0 -Post Debridement Size (cm) - Width 0.5 -Post Debridement Size (cm) - Depth 0.2 -Total Square Cm 0.50 -Wound/Ulcer Outcome Not Healed -Ulcer Cleansing Rinsed/ Irrigated with Saline -Foul Odor after Cleansing No -Bioengineered Tissue No -Topical Lidocaine (%) 4 -Bleeding Controlled with Pressure -Treatment Response Procedure Tolerated Well #1 right medial heel -Time 12:28 -Correct Patient Yes -Correct Side, Site, Position Yes -Correct Procedure Yes -Procedure Performed Yes -Type of Procedure Debridement -Clinical Debridement Subcutaneous -Post Debridement Size (cm) - Length 1.4 -Post Debridement Size (cm) - Width 2.3 -Post Debridement Size (cm) - Depth 0.2 -Total Square Cm 3.22 -Wound/Ulcer Outcome Not Healed -Ulcer Cleansing Rinsed/ Irrigated with Saline -Foul Odor after Cleansing No -Bioengineered Tissue No -Topical Lidocaine (%) 4 -Bleeding Controlled with Pressure -Treatment Response Procedure Tolerated Well Pain Scale: 0-10 Numeric Is Patient Pain Free? Yes Wound debrided: Heel Laterality: Right Wound Grade/Stage: Grade 3 Type of Debridement: Excisional debridement Anesthesia Used: 4% Lidocaine Solution Depth: in the subcutaneous layer Percentage of wound debrided: 100 Instrument Used: #15 blade Tissue Removed: Fibrous, devitalized subcutaneous, biofilm, slough Severity: Fat Layer Exposed Amount of bleeding with debridement: Mild Bleeding Controlled with: Pressure Patient tolerated procedure well - Additional Wound Wound debrided: Anterior ankle Laterality: Right Wound Grade/Stage: Grade 1 Type of Debridement: Excisional debridement Anesthesia Used: 4% Lidocaine Solution Depth: in the subcutaneous layer Percentage of wound debrided: 100 Instrument Used: #15 blade Tissue Removed: Fibrous, devitalized subcutaneous, biofilm, slough Severity: Fat Layer Exposed Amount of bleeding with debridement: Mild Bleeding Controlled with: Pressure Patient tolerated procedure: Patient tolerated procedure well - Additional Wound Wound debrided: Dorsal second toe Laterality: Right Wound Grade/Stage: Grade 1 Type of Debridement: Excisional debridement Anesthesia Used: 4% Lidocaine Solution Depth: in the subcutaneous layer Percentage of wound debrided: 100 Instrument Used: #15 blade Tissue Removed: Fibrous, devitalized subcutaneous, biofilm, slough Severity: Fat Layer Exposed Amount of bleeding with debridement: Mild Bleeding Controlled with: Pressure Patient tolerated procedure: Patient tolerated procedure well - Additional Wound Wound debrided: Leg cluster Laterality: Right Wound Grade/Stage: Grade 1 Type of Debridement: Excisional debridement Anesthesia Used: 4% Lidocaine Solution Depth: in the subcutaneous layer Percentage of wound debrided: 100 Instrument Used: #15 blade Tissue Removed: Fibrous, devitalized subcutaneous, biofilm, slough Severity: Fat Layer Exposed Amount of bleeding with debridement: Mild Bleeding Controlled with: Pressure Patient tolerated procedure: Patient tolerated procedure well - Additional Wound Wound debrided: Distal foot at amputation stump Laterality: Left Wound Grade/Stage: Grade 1 Type of Debridement: Excisional debridement Anesthesia Used: 4% Lidocaine Solution Depth: in the subcutaneous layer Percentage of wound debrided: 100, - - 15% Instrument Used: #15 blade Tissue Removed: Fibrous, devitalized subcutaneous, biofilm, slough Severity: Fat Layer Exposed Amount of bleeding with debridement: Mild Bleeding Controlled with: Pressure Patient tolerated procedure: Patient tolerated procedure well Assessment/Plan Active Problems Lymphedema (Chronic) Venous insufficiency (Chronic) Lower extremity edema (Acute) Type 2 diabetes mellitus with diabetic polyneuropathy (Chronic) Ulcer of right lower extremity with fat layer exposed (Chronic) Physical deconditioning (Chronic) Malnutrition (Chronic) Obesity (Chronic) Assessment: Right heel ulcer with delayed healing lateral left foot ulcer healed. 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 right leg ulcers. Right ankle ulcer with delayed healing. right second toe ulcer. left foot ulcer. lymphedema and continued leg swelling. rule out peripheral vacular disease and venous insufficiency Plan: I discussed his case and treatment plan. Subcutaneous excisional debridement to all bilateral ulcer sites performed today as noted in the clinical panel. He was reassured there are no local signs of infection noted today. He is reassured no infection is noted. It is noted he completed a full course of advanced wound care product, epifix,application. To apply Regranex to the ulcer sites 12 hours at she does get it put I noticed a lot better time when he is able to coordinate this with home health or family assistance. If lack of assistance is noted he can resume only Elda use. . To maintain improved skin integrity by applying lac hydrin lotion to both legs daily. Continue circaid wraps bilateral legs daily; it is okay to apply tubigrip prior to application of CircAid foot wrap to better keep his wound dressings in place. To continue compression pump device daily; he is doing well with this. To proceed as previously advised with his lymphedema referral this week. To continue diuretic medications per primary care physician.To elevate legs at rest. Compliance is imperative and this was discussed again today. To continue with portion control for weight loss and proper glycemic control and nutritional supplementation to optimize healing. His hemoglobin A1c went from 9.0 to 7.4. I recommended he continues to decrease tension to the anterior right ankle ulcer site by returning to the cam walker boot; to weight-bear as tolerated. All of his questions were answered. He understands he is still at risk for limb loss. Due to the chronicity of the left lower extremity as well I recommend an updated left foot x-ray. The x-rays are reviewed without any gross fractures, dislocation, soft tissue emphysema, foreign body, or definitive osteomyelitis changes. There are some minimal reactive changes at the transmetatarsal amputation stump site. His venous and arterial vascular studies are over one year old. These are reordered today to assess his perfusion and edema status. This is reviewed today and according to his noninvasive arterial studies he has noncompressible vessels thus his BAO readings are not accurate. His venous reflux exam demonstrates reflux to multiple veins to bilateral lower extremity. I recommend a vascular surgery follow-up. He would like to try new vascular surgeon that comes locally to the area and a referral was provided to Dr. Peng. To follow-up at the wound care center in 1 week or call sooner if he has any questions or concerns.
[2017-10-21 11:19] VITALS: RESP 18; TEMP 36
--- NOTE | 2017-10-21 16:19 | PCM.WC.PN ---
(1) Ulcer of right lower extremity with fat layer exposed Status: Chronic Code(s): L97.912 - Non-pressure chronic ulcer of unspecified part of right lower leg with fat layer exposed (2) Ulcer of left lower extremity with fat layer exposed Status: Resolved Code(s): L97.922 - Non-pressure chronic ulcer of unspecified part of left lower leg with fat layer exposed (3) Lymphedema Status: Chronic Code(s): I89.0 - Lymphedema, not elsewhere classified (4) Venous insufficiency Status: Chronic Code(s): I87.2 - Venous insufficiency (chronic) (peripheral) (5) Peripheral vascular disease Status: Suspected Code(s): I73.9 - Peripheral vascular disease, unspecified (6) Lower extremity edema Status: Acute Code(s): R60.0 - Localized edema (7) Type 2 diabetes mellitus with diabetic polyneuropathy Status: Chronic Code(s): E11.42 - Type 2 diabetes mellitus with diabetic polyneuropathy (8) Physical deconditioning Status: Chronic Code(s): R53.81 - Other malaise (9) Malnutrition Status: Chronic Code(s): E46 - Unspecified protein-calorie malnutrition (10) Obesity Status: Chronic Code(s): E66.9 - Obesity, unspecified Type of Wound Date of Service: 10/24/17 Chief Complaint: Right heel ulcer with delayed healing. 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 right leg ulcers. Right ankle ulcer with delayed healing. right second toe ulcer. Right third toe ulcer. lymphedema and continued leg swelling History of Wound: 62 year old male was seen for right heel ulcer with chronic osteomyelitis, left foot delayed healing wound, right 2nd toe ulcer, right leg ulcer, and right ankle ulcer. He denies fever, chill, nausea, vomiting. He has Regranex at home and home health has been helping when he has help available with the dressing changes. He uses the compession pump 2-3 times a day with significant edema reduction. He is scheduled a vascular follow-up November 18. He has been following up with the lymphedema clinic as advised and I reviewed his progress note. He denies redness or odor. Progress of Wound: Improving - Physical Exam Vital Signs Temp Pulse Resp BP 96.8 F L 77 18 173/77 H 10/21/17 11:19 10/14/17 12:10 10/21/17 11:19 10/14/17 12:10 General: Alert, Oriented x3, Cooperative HEENT: Atraumatic Extremities: No cyanosis, Capillary Refill Less than 3 Seconds, No Calf Tenderness, Diminished Peripheral Pulses, Edema Skin: Ulcer/ Wound - No purulence, no erythema, skin, no odor, no infection bilateral lower extremities. His skin is atrophic and hairless bilateral. No exposed tendon or necrosis and bilateral Wound Measurements and Assessment WC - Nurse 1 - General Ulcer Measurement Start: 10/14/17 11:49 Freq: Status: Active Protocol: Activity Type Activity Date Activity User E-Sign Co-Sign Detail Recorded Client Recorded Date Recorded By Document 10/21/17 11:19 [id number] 10/21/17 11:35 10/21/17 11:19 Wound Center Nurse 1 [Ulcer Assessment] #13-right 2nd toe -Combined with other wound No -Current Size (cm) - Length 0.5 -Current Size (cm) - Width 1.0 -Current Size (cm) - Depth 0.1 -Total Square Cm 0.50 -Photo Taken No -Epithelialization Medium 34-66% -Tunneling No -Undermining/Tunneling No -Circular Undermining No -Exudate Amt Small (1-33%) -Exudate Type Serosanguineous -Wound Margin Flat & Intact -Granulation Amt Medium (34-66%) -Granulation Quality [place] -Slough/Fibrin Yes -Necrosis Amt Medium (34-66%) -Necrotic Tissue Type Adherent Slough -Structure Exposed N/A -Texture (Susy-wound Skin Appearance) Assessed Localized Edema -Moisture (Susy-wound Skin Appearance Assessed ) Dry/Scaly -Color (Susy-wound Skin Appearance) Assessed -Temperature (Susy-wound Skin No Abnormality Appearance) (Pt Warm) -Tenderness on Palpation (Susy-wound No Skin Appearance) -Ulcer Cleansing Wound Cleanser -Foul Odor after Cleansing No -Anesthetic Used 4% Lidocaine Solution #10 RIGHT ANKLE- ANTERIOR -Combined with other wound No -Current Size (cm) - Length 1.7 -Current Size (cm) - Width 3.2 -Current Size (cm) - Depth 0.1 -Total Square Cm 5.44 -Photo Taken No -Epithelialization Medium 34-66% -Tunneling No -Undermining/Tunneling No -Circular Undermining No -Exudate Amt Medium (34-66%) -Exudate Type Serosanguineous -Wound Margin Flat & Intact -Granulation Amt Large (67-100%) -Granulation Quality Red -Slough/Fibrin Yes -Necrosis Amt Small (1-33%) -Necrotic Tissue Type Adherent Slough -Structure Exposed N/A -Texture (Susy-wound Skin Appearance) Assessed Localized Edema -Moisture (Susy-wound Skin Appearance Assessed ) Dry/Scaly -Color (Susy-wound Skin Appearance) Assessed -Temperature (Susy-wound Skin No Abnormality Appearance) (Pt Warm) -Tenderness on Palpation (Susy-wound No Skin Appearance) -Ulcer Cleansing Wound Cleanser -Foul Odor after Cleansing No -Anesthetic Used 4% Lidocaine Solution #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 -Combined with other wound No -Current Size (cm) - Length 1.4 -Current Size (cm) - Width 1.0 -Current Size (cm) - Depth 0.1 -Total Square Cm 1.40 -Photo Taken No -Epithelialization Large 67-100% -Tunneling No -Undermining/Tunneling No -Circular Undermining No -Exudate Amt Small (1-33%) -Exudate Type Serosanguineous -Wound Margin Flat & Intact -Granulation Amt Medium (34-66%) -Granulation Quality Red -Slough/Fibrin Yes -Necrosis Amt Small (1-33%) -Necrotic Tissue Type Adherent Slough -Structure Exposed N/A -Texture (Susy-wound Skin Appearance) Assessed Localized Edema -Moisture (Susy-wound Skin Appearance Assessed ) Dry/Scaly -Color (Susy-wound Skin Appearance) Assessed Hemosiderin Staining -Temperature (Susy-wound Skin No Abnormality Appearance) (Pt Warm) -Tenderness on Palpation (Susy-wound No Skin Appearance) -Ulcer Cleansing Wound Cleanser -Foul Odor after Cleansing No -Anesthetic Used 4% Lidocaine Solution #4 Left central TMA -Combined with other wound No -Current Size (cm) - Length 0.7 -Current Size (cm) - Width 0.3 -Current Size (cm) - Depth 0.2 -Total Square Cm 0.21 -Photo Taken No -Epithelialization Medium 34-66% -Tunneling No -Undermining/Tunneling No -Circular Undermining No -Exudate Amt Small (1-33%) -Exudate Type Serosanguineous -Wound Margin Flat & Intact -Granulation Amt Medium (34-66%) -Granulation Quality Red -Slough/Fibrin Yes -Necrosis Amt Small (1-33%) -Necrotic Tissue Type Adherent Slough -Structure Exposed N/A -Texture (Susy-wound Skin Appearance) Assessed Localized Edema Scarring -Moisture (Susy-wound Skin Appearance Assessed ) Dry/Scaly -Color (Susy-wound Skin Appearance) Assessed -Temperature (Susy-wound Skin No Abnormality Appearance) (Pt Warm) -Tenderness on Palpation (Susy-wound No Skin Appearance) -Ulcer Cleansing Wound Cleanser -Foul Odor after Cleansing No -Anesthetic Used 4% Lidocaine Solution #1 right medial heel -Combined with other wound No -Current Size (cm) - Length 1.4 -Current Size (cm) - Width 1.8 -Current Size (cm) - Depth 0.1 -Total Square Cm 2.52 -Photo Taken No -Epithelialization Medium 34-66% -Tunneling No -Undermining/Tunneling No -Circular Undermining No -Exudate Amt Small (1-33%) -Exudate Type Serosanguineous -Wound Margin Flat & Intact -Granulation Amt Large (67-100%) -Granulation Quality Red -Slough/Fibrin Yes -Necrosis Amt Small (1-33%) -Necrotic Tissue Type Adherent Slough -Structure Exposed N/A -Texture (Susy-wound Skin Appearance) Assessed Localized Edema -Moisture (Susy-wound Skin Appearance Assessed ) Dry/Scaly -Color (Susy-wound Skin Appearance) Assessed -Temperature (Susy-wound Skin No Abnormality Appearance) (Pt Warm) -Tenderness on Palpation (Susy-wound No Skin Appearance) -Ulcer Cleansing Wound Cleanser -Foul Odor after Cleansing No -Anesthetic Used 4% Lidocaine Solution [Edema Assessment] -Lower Limb Edema Present Yes -Right Calf (cm) 49.2 -Right Ankle (cm) 30.1 -Left Calf (cm) 49.0 -Left Ankle (cm) 29.3 WC - Nurse 2 - General Ulcer CM Notes Start: 10/14/17 11:49 Freq: Status: Active Protocol: Activity Type Activity Date Activity User E-Sign Co-Sign Detail Recorded Client Recorded Date Recorded By Document 10/21/17 11:46 [id number] 10/21/17 11:53 TM 10/21/17 11:46 Wound Center Nurse 2 [Procedure/Treatment] #13-right 2nd toe -Time 11:50 -Correct Patient Yes -Correct Side, Site, Position Yes -Correct Procedure Yes -Procedure Performed Yes -Type of Procedure Debridement -Clinical Debridement Subcutaneous -Post Debridement Size (cm) - Length 0.6 -Post Debridement Size (cm) - Width 1.1 -Post Debridement Size (cm) - Depth 0.1 -Total Square Cm 0.66 -Wound/Ulcer Outcome Not Healed -Ulcer Cleansing Rinsed/ Irrigated with Saline -Foul Odor after Cleansing No -Bioengineered Tissue No -Topical Lidocaine (%) 4 -Bleeding Controlled with Pressure -Treatment Response Procedure Tolerated Well #10 RIGHT ANKLE- ANTERIOR -Time 11:50 -Correct Patient Yes -Correct Side, Site, Position Yes -Correct Procedure Yes -Procedure Performed Yes -Type of Procedure Debridement -Clinical Debridement Subcutaneous -Post Debridement Size (cm) - Length 1.8 -Post Debridement Size (cm) - Width 3.3 -Post Debridement Size (cm) - Depth 0.1 -Total Square Cm 5.94 -Wound/Ulcer Outcome Not Healed -Ulcer Cleansing Rinsed/ Irrigated with Saline -Foul Odor after Cleansing No -Bioengineered Tissue No -Topical Lidocaine (%) 4 -Bleeding Controlled with Pressure Silver Nitrate -Treatment Response Procedure Tolerated Well #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 -Time 11:50 -Correct Patient Yes -Correct Side, Site, Position Yes -Correct Procedure Yes -Procedure Performed Yes -Type of Procedure Debridement -Clinical Debridement Subcutaneous -Post Debridement Size (cm) - Length 1.5 -Post Debridement Size (cm) - Width 1.1 -Post Debridement Size (cm) - Depth 0.1 -Total Square Cm 1.65 -Wound/Ulcer Outcome Not Healed -Ulcer Cleansing Rinsed/ Irrigated with Saline -Foul Odor after Cleansing No -Bioengineered Tissue No -Topical Lidocaine (%) 4 -Bleeding Controlled with Pressure -Treatment Response Procedure Tolerated Well #4 Left central TMA -Time 11:51 -Correct Patient Yes -Correct Side, Site, Position Yes -Correct Procedure Yes -Procedure Performed Yes -Type of Procedure Debridement -Clinical Debridement Subcutaneous -Post Debridement Size (cm) - Length 0.8 -Post Debridement Size (cm) - Width 0.4 -Post Debridement Size (cm) - Depth 0.2 -Total Square Cm 0.32 -Wound/Ulcer Outcome Not Healed -Ulcer Cleansing Rinsed/ Irrigated with Saline -Foul Odor after Cleansing No -Bioengineered Tissue No -Topical Lidocaine (%) 4 -Bleeding Controlled with Pressure -Treatment Response Procedure Tolerated Well #1 right medial heel -Time 11:52 -Correct Patient Yes -Correct Side, Site, Position Yes -Correct Procedure Yes -Procedure Performed Yes -Type of Procedure Debridement -Clinical Debridement Subcutaneous -Post Debridement Size (cm) - Length 1.5 -Post Debridement Size (cm) - Width 1.9 -Post Debridement Size (cm) - Depth 0.1 -Total Square Cm 2.85 -Wound/Ulcer Outcome Not Healed -Ulcer Cleansing Rinsed/ Irrigated with Saline -Foul Odor after Cleansing No -Bioengineered Tissue No -Topical Lidocaine (%) 4 -Bleeding Controlled with Pressure -Treatment Response Procedure Tolerated Well [See Physician Procedure note for Specifics] Pain Scale: 0-10 Numeric [Pain] -Is Patient Pain Free? Yes Musculoskeletal: No Tenderness to Palpation of Joints or Extremities, Muscle Wasting, - - Left transmetatarsal amputation Neurological: - - Lack of epicritic sensation light touch bilateral lower extremities Psych/Mental Status: Normal Affect, Appropriate Debridement Note Post-Debridement Measurements/Treatment WC - Nurse 2 - General Ulcer CM Notes Start: 10/14/17 11:49 Freq: Status: Active Protocol: Activity Type Activity Date Activity User E-Sign Co-Sign Detail Recorded Client Recorded Date Recorded By Document 10/14/17 12:16 [id number] 10/14/17 12:30 TM Document 10/21/17 11:46 [id number] 10/21/17 11:53 TM 10/14/17 10/21/17 12:16 11:46 Wound Center Nurse 2 #13-right 2nd toe -Time 12:25 11:50 -Correct Patient Yes Yes -Correct Side, Site, Position Yes Yes -Correct Procedure Yes Yes -Procedure Performed Yes Yes -Type of Procedure Debridement Debridement -Clinical Debridement Subcutaneous Subcutaneous -Post Debridement Size (cm) - Length 0.6 0.6 -Post Debridement Size (cm) - Width 1.1 1.1 -Post Debridement Size (cm) - Depth 0.1 0.1 -Total Square Cm 0.66 0.66 -Wound/Ulcer Outcome Not Healed Not Healed -Ulcer Cleansing Rinsed/ Rinsed/ Irrigated with Irrigated with Saline Saline -Foul Odor after Cleansing No No -Bioengineered Tissue No No -Topical Lidocaine (%) 4 4 -Bleeding Controlled with Pressure Pressure -Treatment Response Procedure Procedure Tolerated Well Tolerated Well #10 RIGHT ANKLE- ANTERIOR -Time 12:26 11:50 -Correct Patient Yes Yes -Correct Side, Site, Position Yes Yes -Correct Procedure Yes Yes -Procedure Performed Yes Yes -Type of Procedure Debridement Debridement -Clinical Debridement Subcutaneous Subcutaneous -Post Debridement Size (cm) - Length 1.9 1.8 -Post Debridement Size (cm) - Width 2.3 3.3 -Post Debridement Size (cm) - Depth 0.1 0.1 -Total Square Cm 4.37 5.94 -Wound/Ulcer Outcome Not Healed Not Healed -Ulcer Cleansing Rinsed/ Rinsed/ Irrigated with Irrigated with Saline Saline -Foul Odor after Cleansing No No -Bioengineered Tissue No No -Topical Lidocaine (%) 4 4 -Bleeding Controlled with Pressure Pressure Silver Nitrate -Treatment Response Procedure Procedure Tolerated Well Tolerated Well #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 -Time 12:26 11:50 -Correct Patient Yes Yes -Correct Side, Site, Position Yes Yes -Correct Procedure Yes Yes -Procedure Performed Yes Yes -Type of Procedure Debridement Debridement -Clinical Debridement Subcutaneous Subcutaneous -Post Debridement Size (cm) - Length 8.1 1.5 -Post Debridement Size (cm) - Width 9.1 1.1 -Post Debridement Size (cm) - Depth 0.1 0.1 -Total Square Cm 73.71 1.65 -Wound/Ulcer Outcome Not Healed Not Healed -Ulcer Cleansing Rinsed/ Rinsed/ Irrigated with Irrigated with Saline Saline -Foul Odor after Cleansing No No -Bioengineered Tissue No No -Topical Lidocaine (%) 4 4 -Bleeding Controlled with Pressure Pressure -Treatment Response Procedure Procedure Tolerated Well Tolerated Well #4 Left central TMA -Time 12:27 11:51 -Correct Patient Yes Yes -Correct Side, Site, Position Yes Yes -Correct Procedure Yes Yes -Procedure Performed Yes Yes -Type of Procedure Debridement Debridement -Clinical Debridement Subcutaneous Subcutaneous -Post Debridement Size (cm) - Length 1.0 0.8 -Post Debridement Size (cm) - Width 0.5 0.4 -Post Debridement Size (cm) - Depth 0.2 0.2 -Total Square Cm 0.50 0.32 -Wound/Ulcer Outcome Not Healed Not Healed -Ulcer Cleansing Rinsed/ Rinsed/ Irrigated with Irrigated with Saline Saline -Foul Odor after Cleansing No No -Bioengineered Tissue No No -Topical Lidocaine (%) 4 4 -Bleeding Controlled with Pressure Pressure -Treatment Response Procedure Procedure Tolerated Well Tolerated Well #1 right medial heel -Time 12:28 11:52 -Correct Patient Yes Yes -Correct Side, Site, Position Yes Yes -Correct Procedure Yes Yes -Procedure Performed Yes Yes -Type of Procedure Debridement Debridement -Clinical Debridement Subcutaneous Subcutaneous -Post Debridement Size (cm) - Length 1.4 1.5 -Post Debridement Size (cm) - Width 2.3 1.9 -Post Debridement Size (cm) - Depth 0.2 0.1 -Total Square Cm 3.22 2.85 -Wound/Ulcer Outcome Not Healed Not Healed -Ulcer Cleansing Rinsed/ Rinsed/ Irrigated with Irrigated with Saline Saline -Foul Odor after Cleansing No No -Bioengineered Tissue No No -Topical Lidocaine (%) 4 4 -Bleeding Controlled with Pressure Pressure -Treatment Response Procedure Procedure Tolerated Well Tolerated Well Pain Scale: 0-10 Numeric Is Patient Pain Free? Yes Yes Wound debrided: foot TMA stump site Laterality: Left Wound Grade/Stage: grade 1 Type of Debridement: Excisional debridement Anesthesia Used: 4% Lidocaine Solution Depth: in the subcutaneous layer Percentage of wound debrided: 100 Instrument Used: #15 blade Tissue Removed: fibrous, devitalized subcutaneous, biofilm, slough Severity: Fat Layer Exposed Amount of bleeding with debridement: Mild Bleeding Controlled with: Pressure Patient tolerated procedure well - Additional Wound Wound debrided: dorsal toe Laterality: Right Wound Grade/Stage: grade 1 Type of Debridement: Excisional debridement Anesthesia Used: 4% Lidocaine Solution Depth: in the subcutaneous layer Percentage of wound debrided: 100 Instrument Used: #15 blade Tissue Removed: fibrous, devitalized subcutaneous, biofilm, slough Severity: Fat Layer Exposed Amount of bleeding with debridement: Mild Bleeding Controlled with: Pressure Patient tolerated procedure: Patient tolerated procedure well - Additional Wound Wound debrided: heel Laterality: Right Wound Grade/Stage: grade 3 Type of Debridement: Excisional debridement Anesthesia Used: 4% Lidocaine Solution Depth: in the subcutaneous layer Percentage of wound debrided: 100 Instrument Used: #15 blade Tissue Removed: fibrous, devitalized subcutaneous, biofilm, slough Severity: Fat Layer Exposed Amount of bleeding with debridement: Mild Bleeding Controlled with: Pressure Patient tolerated procedure: Patient tolerated procedure well - Additional Wound Wound debrided: anterior ankle Laterality: Right Wound Grade/Stage: grade 1 Type of Debridement: Excisional debridement Anesthesia Used: 4% Lidocaine Solution Depth: in the subcutaneous layer Percentage of wound debrided: 100 Instrument Used: #15 blade Tissue Removed: fibrous, devitalized subcutaneous, biofilm, slough Severity: Fat Layer Exposed Amount of bleeding with debridement: Mild Bleeding Controlled with: Pressure Patient tolerated procedure: Patient tolerated procedure well - Additional Wound Wound debrided: leg Laterality: Right Wound Grade/Stage: grade 1 Type of Debridement: Excisional debridement Anesthesia Used: 4% Lidocaine Solution Depth: in the subcutaneous layer Percentage of wound debrided: - - 2% Instrument Used: #15 blade Tissue Removed: fibrous, devitalized subcutaneous, biofilm, slough Severity: Fat Layer Exposed Amount of bleeding with debridement: Mild Bleeding Controlled with: Pressure Patient tolerated procedure: Patient tolerated procedure well Assessment/Plan Assessment: Right heel ulcer with delayed healing lateral left foot ulcer healed. 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 right leg ulcers. Right ankle ulcer with delayed healing. right second toe ulcer. left foot ulcer. lymphedema and continued leg swelling. rule out peripheral vacular disease and venous insufficiency Plan: I discussed his case and treatment plan. Subcutaneous excisional debridement to all bilateral ulcer sites performed today as noted in the clinical panel. He was reassured there are no local signs of infection noted today. He is reassured no infection is noted. It is noted he completed a full course of advanced wound care product, epifix,application. To apply Regranex to the ulcer sites 12 hours at she does get it put I noticed a lot better time when he is able to coordinate this with home health or family assistance. If lack of assistance is noted he can resume only Elda use. . To maintain improved skin integrity by applying lac hydrin lotion to both legs daily. Continue circaid wraps bilateral legs daily; it is okay to apply tubigrip prior to application of CircAid foot wrap to better keep his wound dressings in place. To continue compression pump device daily; he is doing well with this. To proceed as previously advised with his lymphedema follow-up sessions this week. To continue diuretic medications per primary care physician.To elevate legs at rest. Compliance is imperative and this was discussed again today. To continue with portion control for weight loss and proper glycemic control and nutritional supplementation to optimize healing. His hemoglobin A1c went from 9.0 to 7.4. I recommended he continues to decrease tension to the anterior right ankle ulcer site by returning to the cam walker boot; to weight-bear as tolerated. All of his questions were answered. He understands he is still at risk for limb loss. Due to the chronicity of the left lower extremity as well I recommend an updated left foot x-ray. The x-rays are reviewed without any gross fractures, dislocation, soft tissue emphysema, foreign body, or definitive osteomyelitis changes. There are some minimal reactive changes at the transmetatarsal amputation stump site. His venous and arterial vascular studies are over one year old. These are reordered today to assess his perfusion and edema status. This is reviewed today and according to his noninvasive arterial studies he has noncompressible vessels thus his BAO readings are not accurate. His venous reflux exam demonstrates reflux to multiple veins to bilateral lower extremity. I recommend a vascular surgery follow-up. He is scheduled to see Dr. Peng in November 18. To follow-up at the wound care center in 1 week or call sooner if he has any questions or concerns.
[2017-10-28 11:09] VITALS: BP 141/66; PULSE 57; RESP 18; TEMP 36.6
--- NOTE | 2017-10-28 16:17 | PCM.WC.PN ---
(1) Ulcer of right lower extremity with fat layer exposed Status: Chronic Current Visit: Yes Code(s): L97.912 - Non-pressure chronic ulcer of unspecified part of right lower leg with fat layer exposed (2) Ulcer of left lower extremity with fat layer exposed Status: Resolved Current Visit: Yes Code(s): L97.922 - Non-pressure chronic ulcer of unspecified part of left lower leg with fat layer exposed (3) Lymphedema Status: Chronic Current Visit: Yes Code(s): I89.0 - Lymphedema, not elsewhere classified (4) Venous insufficiency Status: Chronic Current Visit: Yes Code(s): I87.2 - Venous insufficiency (chronic) (peripheral) (5) Peripheral vascular disease Status: Suspected Current Visit: No Code(s): I73.9 - Peripheral vascular disease, unspecified (6) Lower extremity edema Status: Acute Current Visit: Yes Code(s): R60.0 - Localized edema (7) Type 2 diabetes mellitus with diabetic polyneuropathy Status: Chronic Current Visit: Yes Code(s): E11.42 - Type 2 diabetes mellitus with diabetic polyneuropathy (8) Physical deconditioning Status: Chronic Current Visit: Yes Code(s): R53.81 - Other malaise (9) Malnutrition Status: Chronic Current Visit: Yes Code(s): E46 - Unspecified protein-calorie malnutrition (10) Obesity Status: Chronic Current Visit: Yes Code(s): E66.9 - Obesity, unspecified (11) Ulcer of right foot with fat layer exposed Status: Resolved Current Visit: Yes Code(s): L97.512 - Non-pressure chronic ulcer of other part of right foot with fat layer exposed (12) Chronic ulcer of left foot with fat layer exposed Status: Chronic Current Visit: Yes Code(s): L97.522 - Non-pressure chronic ulcer of other part of left foot with fat layer exposed Type of Wound Date of Service: 10/28/17 Chief Complaint: Right heel ulcer with delayed healing. 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 right leg ulcers. Right ankle ulcer with delayed healing. right second toe ulcer healed. Right third toe ulcer. lymphedema and continued leg swelling History of Wound: 62 year old male was seen for right heel ulcer with chronic osteomyelitis, left foot delayed healing wound, right 2nd toe ulcer, right leg ulcer, and right ankle ulcer. He denies fever, chill, nausea, vomiting. He has Regranex at home and home health has been helping when he has help available with the dressing changes. He uses the compession pump 2-3 times a day with significant edema reduction. He is scheduled a vascular follow-up November 18. He has been following up with the lymphedema clinic as advised and I reviewed his progress note. He denies redness or odor. Progress of Wound: Improving - Physical Exam Vital Signs Temp Pulse Resp BP 97.8 F 57 L 18 141/66 H 10/28/17 11:09 10/28/17 11:09 10/28/17 11:09 10/28/17 11:09 General: Alert, Oriented x3, Cooperative Extremities: No cyanosis, Capillary Refill Less than 3 Seconds, No Calf Tenderness - Negative Keara and Simmons sign bilateral, Diminished Peripheral Pulses, Edema - Bilateral lower extremities Skin: Ulcer/ Wound - No purulence, no erythema, streaking, odor, no infection. There is some hyper granulation tissue noted to the right anterior ankle. There is full epithelialization noted to the dorsal right second toe and the site has healed. He has continued nonhealing to the left stump site. His peripheral skin is atrophic and hairless Wound Measurements and Assessment WC - Nurse 1 - General Ulcer Measurement Start: 10/14/17 11:49 Freq: Status: Active Protocol: Activity Type Activity Date Activity User E-Sign Co-Sign Detail Recorded Client Recorded Date Recorded By Document 10/28/17 11:09 [id number] 10/28/17 11:23 DL 10/28/17 11:09 Wound Center Nurse 1 [Ulcer Assessment] #13-right 2nd toe -Current Size (cm) - Length 0.2 -Current Size (cm) - Width 0.3 -Current Size (cm) - Depth 0.1 -Total Square Cm 0.06 -Photo Taken No -Exudate Amt None Present (0 %) -Wound Margin Distinct, Outline Attached -Granulation Amt Large (67-100%) -Granulation Quality Fulda -Necrosis Amt Small (1-33%) -Necrotic Tissue Type Adherent Slough -Structure Exposed N/A -Texture (Susy-wound Skin Appearance) Scarring -Moisture (Susy-wound Skin Appearance Dry/Scaly ) -Color (Susy-wound Skin Appearance) Erythema -Temperature (Susy-wound Skin No Abnormality Appearance) (Pt Warm) -Ulcer Cleansing Wound Cleanser -Foul Odor after Cleansing No -Anesthetic Used 4% Lidocaine Solution #10 RIGHT ANKLE- ANTERIOR -Current Size (cm) - Length 2.6 -Current Size (cm) - Width 1.2 -Current Size (cm) - Depth 0.1 -Total Square Cm 3.12 -Photo Taken No -Exudate Amt Small (1-33%) -Exudate Type Serosanguineous -Wound Margin Distinct, Outline Attached -Granulation Amt Large (67-100%) -Granulation Quality Fulda -Necrosis Amt None Present (0 %) -Structure Exposed N/A -Texture (Susy-wound Skin Appearance) Scarring -Moisture (Susy-wound Skin Appearance Dry/Scaly ) -Color (Susy-wound Skin Appearance) Hemosiderin Staining -Temperature (Susy-wound Skin No Abnormality Appearance) (Pt Warm) -Tenderness on Palpation (Susy-wound No Skin Appearance) -Ulcer Cleansing Wound Cleanser -Foul Odor after Cleansing No -Anesthetic Used 4% Lidocaine Solution #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 -Current Size (cm) - Length 0.1 -Current Size (cm) - Width 0.1 -Current Size (cm) - Depth 0.1 -Total Square Cm 0.01 -Photo Taken No -Exudate Amt None Present (0 %) -Wound Margin Flat & Intact -Granulation Amt Large (67-100%) -Granulation Quality Fulda -Necrosis Amt Small (1-33%) -Necrotic Tissue Type Adherent Slough -Structure Exposed N/A -Texture (Susy-wound Skin Appearance) Scarring -Moisture (Susy-wound Skin Appearance Dry/Scaly ) -Color (Susy-wound Skin Appearance) Hemosiderin Staining -Temperature (Susy-wound Skin No Abnormality Appearance) (Pt Warm) -Ulcer Cleansing Wound Cleanser -Foul Odor after Cleansing No -Anesthetic Used 4% Lidocaine Solution #4 Left central TMA -Current Size (cm) - Length 0.8 -Current Size (cm) - Width 0.4 -Current Size (cm) - Depth 0.2 -Total Square Cm 0.32 -Photo Taken No -Exudate Amt None Present (0 %) -Wound Margin Flat & Intact -Granulation Amt Large (67-100%) -Granulation Quality Fulda -Necrosis Amt None Present (0 %) -Structure Exposed N/A -Texture (Susy-wound Skin Appearance) Scarring -Moisture (Susy-wound Skin Appearance No Abnormality ) -Color (Susy-wound Skin Appearance) No Abnormality -Temperature (Susy-wound Skin No Abnormality Appearance) (Pt Warm) -Ulcer Cleansing Wound Cleanser -Foul Odor after Cleansing No -Anesthetic Used 4% Lidocaine Solution #1 right medial heel -Current Size (cm) - Length 1.4 -Current Size (cm) - Width 1.8 -Current Size (cm) - Depth 0.2 -Total Square Cm 2.52 -Photo Taken No -Exudate Amt Small (1-33%) -Exudate Type Serosanguineous -Wound Margin Thickened -Granulation Amt Medium (34-66%) -Granulation Quality Pale Fulda -Necrosis Amt Medium (34-66%) -Necrotic Tissue Type Adherent Slough -Structure Exposed N/A -Texture (Susy-wound Skin Appearance) Scarring -Moisture (Susy-wound Skin Appearance Dry/Scaly ) -Color (Susy-wound Skin Appearance) No Abnormality -Temperature (Susy-wound Skin No Abnormality Appearance) (Pt Warm) -Ulcer Cleansing Wound Cleanser -Foul Odor after Cleansing No -Anesthetic Used 4% Lidocaine Solution [Edema Assessment] -Right Calf (cm) 47.3 -Right Ankle (cm) 29 -Left Calf (cm) 46.6 -Left Ankle (cm) 28.5 WC - Nurse 2 - General Ulcer CM Notes Start: 10/14/17 11:49 Freq: Status: Active Protocol: Activity Type Activity Date Activity User E-Sign Co-Sign Detail Recorded Client Recorded Date Recorded By Document 10/28/17 11:37 NORRIS [id number] 10/28/17 11:44 NORRIS 10/28/17 11:37 Wound Center Nurse 2 [Procedure/Treatment] #13-right 2nd toe -Correct Patient No -Correct Side, Site, Position No -Correct Procedure No -Procedure Performed No -Post Debridement Size (cm) - Length 0 -Post Debridement Size (cm) - Width 0 -Post Debridement Size (cm) - Depth 0 -Total Square Cm 0 -Wound/Ulcer Outcome Healed- Epithelialized #10 RIGHT ANKLE- ANTERIOR -Time 11:42 -Correct Patient Yes -Correct Side, Site, Position Yes -Correct Procedure Yes -Procedure Performed Yes -Type of Procedure Debridement -Clinical Debridement Subcutaneous -Post Debridement Size (cm) - Length 2.6 -Post Debridement Size (cm) - Width 1.3 -Post Debridement Size (cm) - Depth 0.1 -Total Square Cm 3.38 -Wound/Ulcer Outcome Not Healed -Ulcer Cleansing Rinsed/ Irrigated with Saline -Foul Odor after Cleansing No -Bioengineered Tissue No -Bleeding Controlled with Pressure -Treatment Response Procedure Tolerated Well #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 -Time 11:42 -Correct Patient Yes -Correct Side, Site, Position Yes -Correct Procedure Yes -Procedure Performed Yes -Type of Procedure Debridement -Clinical Debridement Subcutaneous -Post Debridement Size (cm) - Length 0.2 -Post Debridement Size (cm) - Width 0.2 -Post Debridement Size (cm) - Depth 0.1 -Total Square Cm 0.04 -Wound/Ulcer Outcome Not Healed -Ulcer Cleansing Rinsed/ Irrigated with Saline -Foul Odor after Cleansing No -Bioengineered Tissue No -Bleeding Controlled with Pressure -Treatment Response Procedure Tolerated Well #4 Left central TMA -Time 11:43 -Correct Patient Yes -Correct Side, Site, Position Yes -Correct Procedure Yes -Procedure Performed Yes -Type of Procedure Debridement -Clinical Debridement Subcutaneous -Post Debridement Size (cm) - Length 0.8 -Post Debridement Size (cm) - Width 0.5 -Post Debridement Size (cm) - Depth 0.2 -Total Square Cm 0.40 -Wound/Ulcer Outcome Not Healed -Ulcer Cleansing Rinsed/ Irrigated with Saline -Foul Odor after Cleansing No -Bioengineered Tissue No -Bleeding Controlled with Pressure -Treatment Response Procedure Tolerated Well #1 right medial heel -Time 11:43 -Correct Patient Yes -Correct Side, Site, Position Yes -Correct Procedure Yes -Procedure Performed Yes -Type of Procedure Debridement -Clinical Debridement Subcutaneous -Post Debridement Size (cm) - Length 1.5 -Post Debridement Size (cm) - Width 1.8 -Post Debridement Size (cm) - Depth 0.2 -Total Square Cm 2.70 -Wound/Ulcer Outcome Not Healed -Ulcer Cleansing Rinsed/ Irrigated with Saline -Foul Odor after Cleansing No -Bioengineered Tissue No -Bleeding Controlled with Pressure -Treatment Response Procedure Tolerated Well [See Physician Procedure note for Specifics] Pain Scale: 0-10 Numeric [Pain] -Is Patient Pain Free? Yes Musculoskeletal: No Tenderness to Palpation of Joints or Extremities, Muscle Wasting, - - Left transmetatarsal amputation Neurological: - - Lack of epicritic sensation to light touch bilateral lower extremities Psych/Mental Status: Normal Affect, Appropriate Debridement Note Post-Debridement Measurements/Treatment WC - Nurse 2 - General Ulcer CM Notes Start: 10/14/17 11:49 Freq: Status: Active Protocol: Activity Type Activity Date Activity User E-Sign Co-Sign Detail Recorded Client Recorded Date Recorded By Document 10/14/17 12:16 [id number] 10/14/17 12:30 Document 10/21/17 11:46 [id number] 10/21/17 11:53 TM Document 10/28/17 11:37 [id number] 10/28/17 11:44 10/14/17 10/21/17 10/28/17 12:16 11:46 11:37 Wound Center Nurse 2 #13-right 2nd toe -Time 12:25 11:50 -Correct Patient Yes Yes No -Correct Side, Site, Position Yes Yes No -Correct Procedure Yes Yes No -Procedure Performed Yes Yes No -Type of Procedure Debridement Debridement -Clinical Debridement Subcutaneous Subcutaneous -Post Debridement Size (cm) - Length 0.6 0.6 0 -Post Debridement Size (cm) - Width 1.1 1.1 0 -Post Debridement Size (cm) - Depth 0.1 0.1 0 -Total Square Cm 0.66 0.66 0 -Wound/Ulcer Outcome Not Healed Not Healed Healed- Epithelialized -Ulcer Cleansing Rinsed/ Rinsed/ Irrigated with Irrigated with Saline Saline -Foul Odor after Cleansing No No -Bioengineered Tissue No No -Topical Lidocaine (%) 4 4 -Bleeding Controlled with Pressure Pressure -Treatment Response Procedure Procedure Tolerated Well Tolerated Well #10 RIGHT ANKLE- ANTERIOR -Time 12:26 11:50 11:42 -Correct Patient Yes Yes Yes -Correct Side, Site, Position Yes Yes Yes -Correct Procedure Yes Yes Yes -Procedure Performed Yes Yes Yes -Type of Procedure Debridement Debridement Debridement -Clinical Debridement Subcutaneous Subcutaneous Subcutaneous -Post Debridement Size (cm) - Length 1.9 1.8 2.6 -Post Debridement Size (cm) - Width 2.3 3.3 1.3 -Post Debridement Size (cm) - Depth 0.1 0.1 0.1 -Total Square Cm 4.37 5.94 3.38 -Wound/Ulcer Outcome Not Healed Not Healed Not Healed -Ulcer Cleansing Rinsed/ Rinsed/ Rinsed/ Irrigated with Irrigated with Irrigated with Saline Saline Saline -Foul Odor after Cleansing No No No -Bioengineered Tissue No No No -Topical Lidocaine (%) 4 4 -Bleeding Controlled with Pressure Pressure Pressure Silver Nitrate -Treatment Response Procedure Procedure Procedure Tolerated Well Tolerated Well Tolerated Well #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 -Time 12:26 11:50 11:42 -Correct Patient Yes Yes Yes -Correct Side, Site, Position Yes Yes Yes -Correct Procedure Yes Yes Yes -Procedure Performed Yes Yes Yes -Type of Procedure Debridement Debridement Debridement -Clinical Debridement Subcutaneous Subcutaneous Subcutaneous -Post Debridement Size (cm) - Length 8.1 1.5 0.2 -Post Debridement Size (cm) - Width 9.1 1.1 0.2 -Post Debridement Size (cm) - Depth 0.1 0.1 0.1 -Total Square Cm 73.71 1.65 0.04 -Wound/Ulcer Outcome Not Healed Not Healed Not Healed -Ulcer Cleansing Rinsed/ Rinsed/ Rinsed/ Irrigated with Irrigated with Irrigated with Saline Saline Saline -Foul Odor after Cleansing No No No -Bioengineered Tissue No No No -Topical Lidocaine (%) 4 4 -Bleeding Controlled with Pressure Pressure Pressure -Treatment Response Procedure Procedure Procedure Tolerated Well Tolerated Well Tolerated Well #4 Left central TMA -Time 12:27 11:51 11:43 -Correct Patient Yes Yes Yes -Correct Side, Site, Position Yes Yes Yes -Correct Procedure Yes Yes Yes -Procedure Performed Yes Yes Yes -Type of Procedure Debridement Debridement Debridement -Clinical Debridement Subcutaneous Subcutaneous Subcutaneous -Post Debridement Size (cm) - Length 1.0 0.8 0.8 -Post Debridement Size (cm) - Width 0.5 0.4 0.5 -Post Debridement Size (cm) - Depth 0.2 0.2 0.2 -Total Square Cm 0.50 0.32 0.40 -Wound/Ulcer Outcome Not Healed Not Healed Not Healed -Ulcer Cleansing Rinsed/ Rinsed/ Rinsed/ Irrigated with Irrigated with Irrigated with Saline Saline Saline -Foul Odor after Cleansing No No No -Bioengineered Tissue No No No -Topical Lidocaine (%) 4 4 -Bleeding Controlled with Pressure Pressure Pressure -Treatment Response Procedure Procedure Procedure Tolerated Well Tolerated Well Tolerated Well #1 right medial heel -Time 12:28 11:52 11:43 -Correct Patient Yes Yes Yes -Correct Side, Site, Position Yes Yes Yes -Correct Procedure Yes Yes Yes -Procedure Performed Yes Yes Yes -Type of Procedure Debridement Debridement Debridement -Clinical Debridement Subcutaneous Subcutaneous Subcutaneous -Post Debridement Size (cm) - Length 1.4 1.5 1.5 -Post Debridement Size (cm) - Width 2.3 1.9 1.8 -Post Debridement Size (cm) - Depth 0.2 0.1 0.2 -Total Square Cm 3.22 2.85 2.70 -Wound/Ulcer Outcome Not Healed Not Healed Not Healed -Ulcer Cleansing Rinsed/ Rinsed/ Rinsed/ Irrigated with Irrigated with Irrigated with Saline Saline Saline -Foul Odor after Cleansing No No No -Bioengineered Tissue No No No -Topical Lidocaine (%) 4 4 -Bleeding Controlled with Pressure Pressure Pressure -Treatment Response Procedure Procedure Procedure Tolerated Well Tolerated Well Tolerated Well Pain Scale: 0-10 Numeric Is Patient Pain Free? Yes Yes Yes Wound debrided: transmetatarsal amputation stump site Laterality: Left Wound Grade/Stage: grade 1 Type of Debridement: Excisional debridement Anesthesia Used: 4% Lidocaine Solution Depth: in the subcutaneous layer Percentage of wound debrided: 100 Instrument Used: #15 blade Tissue Removed: fibrous, devitalized subcutaneous, biofilm, slough Severity: Fat Layer Exposed Amount of bleeding with debridement: Mild Bleeding Controlled with: Pressure Patient tolerated procedure well - Additional Wound Wound debrided: leg Laterality: Right Wound Grade/Stage: grade 1 Type of Debridement: Excisional debridement Anesthesia Used: 4% Lidocaine Solution Depth: in the subcutaneous layer Percentage of wound debrided: 100 Instrument Used: #15 blade Tissue Removed: fibrous, devitalized subcutaneous, biofilm, slough Severity: Fat Layer Exposed Amount of bleeding with debridement: Mild Bleeding Controlled with: Pressure Patient tolerated procedure: Patient tolerated procedure well - Additional Wound Wound debrided: anterior ankle Laterality: Right Wound Grade/Stage: grade 1 Type of Debridement: Excisional debridement Anesthesia Used: 4% Lidocaine Solution Depth: in the subcutaneous layer Percentage of wound debrided: 100 Instrument Used: #15 blade Tissue Removed: fibrous, devitalized subcutaneous, biofilm, slough Severity: Fat Layer Exposed Amount of bleeding with debridement: Mild Bleeding Controlled with: Pressure Patient tolerated procedure: Patient tolerated procedure well - Additional Wound Wound debrided: heel Laterality: Right Wound Grade/Stage: grade 3 Type of Debridement: Excisional debridement Anesthesia Used: 4% Lidocaine Solution Depth: in the subcutaneous layer Percentage of wound debrided: 100 Instrument Used: #15 blade Tissue Removed: fibrous, devitalized subcutaneous, biofilm, slough Severity: Fat Layer Exposed Amount of bleeding with debridement: Mild Bleeding Controlled with: Pressure Patient tolerated procedure: Patient tolerated procedure well Assessment/Plan Active Problems Lymphedema (Chronic) Venous insufficiency (Chronic) Ulcer of right foot with fat layer exposed (Acute) Lower extremity edema (Acute) Type 2 diabetes mellitus with diabetic polyneuropathy (Chronic) Ulcer of right lower extremity with fat layer exposed (Chronic) Chronic ulcer of left foot with fat layer exposed (Chronic) Physical deconditioning (Chronic) Malnutrition (Chronic) Obesity (Chronic) Assessment: Right heel ulcer with delayed healing lateral left foot ulcer healed. 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 right leg ulcers. Right ankle ulcer with delayed healing. right second toe ulcer healed. left foot ulcer very chronic. lymphedema and continued leg swelling. rule out peripheral vacular disease and venous insufficiency Plan: I discussed his case and treatment plan. Subcutaneous excisional debridement to all bilateral ulcer sites performed today as noted in the clinical panel. Silver nitrate was applied to the right anterior ankle to decrease hyper granulation tissue; he tolerated this well. He was reassured there are no local signs of infection noted today. He is reassured no infection is noted. It is noted he completed a full course of advanced wound care product, epifix,application. To apply Regranex to the ulcer sites 12 hours at she does get it put I noticed a lot better time when he is able to coordinate this with home health or family assistance. If lack of assistance is noted he can resume only Elda use. His healed right second toe ulcer site is noted with full epithelialization. . To maintain improved skin integrity by applying lac hydrin lotion to both legs daily. Continue circaid wraps bilateral legs daily; it is okay to apply tubigrip prior to application of CircAid foot wrap to better keep his wound dressings in place. To continue compression pump device daily; he is doing well with this. To proceed as previously advised with his lymphedema follow-up as advised. He is discharged from the [facility]ympha clinic at this time and he is ordering a new foot compression garment that the lymphedema nurse recommended. He will follow-up with her the next time updated compression garments are required in approximately 6 months. To continue diuretic medications per primary care physician.To elevate legs at rest. Compliance is imperative and this was discussed again today. To continue with portion control for weight loss and proper glycemic control and nutritional supplementation to optimize healing. His hemoglobin A1c went from 9.0 to 7.4. I recommended he continues to decrease tension to the anterior right ankle ulcer site by returning to the cam walker boot; to weight-bear as tolerated. All of his questions were answered. He understands he is still at risk for limb loss. Due to the chronicity of the left lower extremity as well I recommend an updated left foot x-ray. The x-rays are reviewed without any gross fractures, dislocation, soft tissue emphysema, foreign body, or definitive osteomyelitis changes. There are some minimal reactive changes at the transmetatarsal amputation stump site. His venous and arterial vascular studies are over one year old. These are reordered today to assess his perfusion and edema status. This is reviewed today and according to his noninvasive arterial studies he has noncompressible vessels thus his BAO readings are not accurate. His venous reflux exam demonstrates reflux to multiple veins to bilateral lower extremity. I recommend a vascular surgery follow-up. He is scheduled to see Dr. Peng in November 18. To follow-up at the wound care center in 1 week or call sooner if he has any questions or concerns.
[2017-11-04 11:03] VITALS: BP 165/79; PULSE 64; RESP 16; TEMP 35.3
--- NOTE | 2017-11-04 13:25 | PCM.WC.PN ---
(1) Ulcer of right lower extremity with fat layer exposed Status: Chronic Current Visit: Yes Code(s): L97.912 - Non-pressure chronic ulcer of unspecified part of right lower leg with fat layer exposed (2) Ulcer of left lower extremity with fat layer exposed Status: Resolved Current Visit: Yes Code(s): L97.922 - Non-pressure chronic ulcer of unspecified part of left lower leg with fat layer exposed (3) Lymphedema Status: Chronic Current Visit: Yes Code(s): I89.0 - Lymphedema, not elsewhere classified (4) Venous insufficiency Status: Chronic Current Visit: Yes Code(s): I87.2 - Venous insufficiency (chronic) (peripheral) (5) Peripheral vascular disease Status: Suspected Current Visit: No Code(s): I73.9 - Peripheral vascular disease, unspecified (6) Lower extremity edema Status: Acute Current Visit: Yes Code(s): R60.0 - Localized edema (7) Type 2 diabetes mellitus with diabetic polyneuropathy Status: Chronic Current Visit: Yes Code(s): E11.42 - Type 2 diabetes mellitus with diabetic polyneuropathy (8) Physical deconditioning Status: Chronic Current Visit: Yes Code(s): R53.81 - Other malaise (9) Malnutrition Status: Chronic Current Visit: Yes Code(s): E46 - Unspecified protein-calorie malnutrition (10) Obesity Status: Chronic Current Visit: Yes Code(s): E66.9 - Obesity, unspecified (11) Ulcer of right foot with fat layer exposed Status: Resolved Current Visit: Yes Code(s): L97.512 - Non-pressure chronic ulcer of other part of right foot with fat layer exposed (12) Chronic ulcer of left foot with fat layer exposed Status: Chronic Current Visit: Yes Code(s): L97.522 - Non-pressure chronic ulcer of other part of left foot with fat layer exposed Type of Wound Date of Service: 11/04/17 Chief Complaint: Right heel ulcer with delayed healing. 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 right leg ulcers. Right ankle ulcer with delayed healing. right second toe ulcer healed. Right third toe ulcer. lymphedema and continued leg swelling History of Wound: 62 year old male was seen for right heel ulcer with chronic osteomyelitis, left foot delayed healing wound, right 2nd toe ulcer, right leg ulcer, and right ankle ulcer. He denies fever, chill, nausea, vomiting. He has Regranex at home and home health has been helping when he has help available with the dressing changes. He uses the compession pump 2-3 times a day with significant edema reduction. He is scheduled a vascular follow-up November 18. He has been following up with the lymphedema clinic as advised and I reviewed his progress note. He denies redness or odor. She also reports new drainage the outside of his left foot and thinks he has a new ulcer. Progress of Wound: Improving. New and returned left foot ulcer - Physical Exam Vital Signs Temp Pulse Resp BP 95.5 F L 64 16 165/79 H 11/04/17 11:03 11/04/17 11:03 11/04/17 11:03 11/04/17 11:03 General: Alert, Oriented x3, Cooperative HEENT: Atraumatic Extremities: No cyanosis, Capillary Refill Less than 3 Seconds, No Calf Tenderness - Negative Keara and Simmons sign, Diminished Peripheral Pulses, Edema - Mild bilateral lower extremities, - - Left transmetatarsal amputation and right hallux amputation both healed Skin: Ulcer/ Wound - No purulence, no erythema, streaking, odor, no infection. There is resolved hyper granulation tissues to the right anterior ankle wound. There is a new skin discontinuity to the lateral left foot with granulation tissue exposed only no infection or eschar deep tissue exposure., - - The peripheral skin is hairless atrophic Wound Measurements and Assessment WC - Nurse 1 - General Ulcer Measurement Start: 10/14/17 11:49 Freq: Status: Active Protocol: Activity Type Activity Date Activity User E-Sign Co-Sign Detail Recorded Client Recorded Date Recorded By Document 11/04/17 11:03 [facility] [id number] 11/04/17 11:11 [facility] 11/04/17 11:03 Wound Center Nurse 1 [Ulcer Assessment] #16- RT LOWER BERNSTEIN CLUSTER -Combined with other wound No -Current Size (cm) - Length 2.8 -Current Size (cm) - Width 2.7 -Current Size (cm) - Depth 0.1 -Total Square Cm 7.56 -Date of Last Picture (Recall this 11/04/17 field) -Photo Taken Yes -Epithelialization None Present -Tunneling No -Undermining/Tunneling No -Circular Undermining No -Exudate Amt Small (1-33%) -Exudate Type Serosanguineous -Wound Margin Distinct, Outline Attached -Granulation Amt Large (67-100%) -Granulation Quality Red -Slough/Fibrin Yes -Necrosis Amt Small (1-33%) -Necrotic Tissue Type Adherent Slough -Structure Exposed None/Limited to Skin Breakdown -Texture (Susy-wound Skin Appearance) Scarring -Moisture (Susy-wound Skin Appearance Dry/Scaly ) -Color (Susy-wound Skin Appearance) Hemosiderin Staining -Temperature (Susy-wound Skin No Abnormality Appearance) (Pt Warm) -Tenderness on Palpation (Susy-wound No Skin Appearance) -Ulcer Cleansing Wound Cleanser -Foul Odor after Cleansing No -Anesthetic Used 4% Lidocaine Solution #10 RIGHT ANKLE- ANTERIOR -Combined with other wound No -Current Size (cm) - Length 0.7 -Current Size (cm) - Width 2.3 -Current Size (cm) - Depth 0.1 -Total Square Cm 1.61 -Date of Last Picture (Recall this 11/04/17 field) -Photo Taken Yes -Epithelialization None Present -Tunneling No -Undermining/Tunneling No -Circular Undermining No -Exudate Amt Small (1-33%) -Exudate Type Serosanguineous -Wound Margin Distinct, Outline Attached -Granulation Amt Large (67-100%) -Granulation Quality Hyper- granulation -Slough/Fibrin Yes -Necrosis Amt Small (1-33%) -Necrotic Tissue Type Adherent Slough -Structure Exposed None/Limited to Skin Breakdown -Texture (Susy-wound Skin Appearance) Scarring -Moisture (Susy-wound Skin Appearance Dry/Scaly ) -Color (Susy-wound Skin Appearance) Assessed -Temperature (Susy-wound Skin No Abnormality Appearance) (Pt Warm) -Tenderness on Palpation (Susy-wound No Skin Appearance) -Ulcer Cleansing Rinsed/ Irrigated with Saline -Foul Odor after Cleansing No -Anesthetic Used 4% Lidocaine Solution #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 -Combined with other wound No -Current Size (cm) - Length 0.4 -Current Size (cm) - Width 0.4 -Current Size (cm) - Depth 0.1 -Total Square Cm 0.16 -Date of Last Picture (Recall this 11/04/17 field) -Photo Taken Yes -Epithelialization Small 1-33% -Tunneling No -Undermining/Tunneling No -Circular Undermining No -Exudate Amt Small (1-33%) -Exudate Type Serosanguineous -Wound Margin Distinct, Outline Attached -Granulation Amt Large (67-100%) -Granulation Quality Red -Slough/Fibrin Yes -Necrosis Amt Small (1-33%) -Necrotic Tissue Type Adherent Slough -Structure Exposed None/Limited to Skin Breakdown -Texture (Susy-wound Skin Appearance) Scarring -Moisture (Susy-wound Skin Appearance Dry/Scaly ) -Color (Susy-wound Skin Appearance) Hemosiderin Staining -Temperature (Susy-wound Skin No Abnormality Appearance) (Pt Warm) -Tenderness on Palpation (Susy-wound No Skin Appearance) -Foul Odor after Cleansing No -Anesthetic Used 4% Lidocaine Solution #4 Left central TMA -Combined with other wound No -Current Size (cm) - Length 0.9 -Current Size (cm) - Width 0.3 -Current Size (cm) - Depth 0.2 -Total Square Cm 0.27 -Date of Last Picture (Recall this 11/04/17 field) -Photo Taken Yes -Epithelialization Small 1-33% -Tunneling No -Undermining/Tunneling No -Circular Undermining No -Exudate Amt Small (1-33%) -Exudate Type Serosanguineous -Wound Margin Distinct, Outline Attached -Granulation Amt Large (67-100%) -Granulation Quality Doyline -Slough/Fibrin Yes -Necrosis Amt Small (1-33%) -Necrotic Tissue Type Adherent Slough -Structure Exposed None/Limited to Skin Breakdown -Texture (Susy-wound Skin Appearance) Scarring -Moisture (Susy-wound Skin Appearance Dry/Scaly ) -Color (Susy-wound Skin Appearance) Assessed -Temperature (Susy-wound Skin No Abnormality Appearance) (Pt Warm) -Tenderness on Palpation (Susy-wound No Skin Appearance) -Ulcer Cleansing Wound Cleanser -Foul Odor after Cleansing No -Anesthetic Used 4% Lidocaine Solution #1 right medial heel -Combined with other wound No -Current Size (cm) - Length 1.6 -Current Size (cm) - Width 1.5 -Current Size (cm) - Depth 0.2 -Total Square Cm 2.40 -Date of Last Picture (Recall this 11/04/17 field) -Photo Taken Yes -Epithelialization Small 1-33% -Tunneling No -Undermining/Tunneling No -Circular Undermining No -Exudate Amt Small (1-33%) -Exudate Type Serosanguineous -Wound Margin Distinct, Outline Attached -Granulation Amt Medium (34-66%) -Granulation Quality D[place]line -Slough/Fibrin Yes -Necrosis Amt Medium (34-66%) -Necrotic Tissue Type Adherent Slough -Texture (Susy-wound Skin Appearance) Callus Scarring -Moisture (Susy-wound Skin Appearance Dry/Scaly ) -Color (Susy-wound Skin Appearance) Assessed -Temperature (Susy-wound Skin No Abnormality Appearance) (Pt Warm) -Tenderness on Palpation (Susy-wound No Skin Appearance) -Ulcer Cleansing Wound Cleanser -Foul Odor after Cleansing No -Anesthetic Used 4% Lidocaine Solution [Edema Assessment] -Lower Limb Edema Present Yes -Right Calf (cm) 46 -Right Ankle (cm) 28.6 -Left Calf (cm) 46.3 -Left Ankle (cm) 28.3 WC - Nurse 2 - General Ulcer CM Notes Start: 10/14/17 11:49 Freq: Status: Active Protocol: Activity Type Activity Date Activity User E-Sign Co-Sign Detail Recorded Client Recorded Date Recorded By Document 11/04/17 11:59 [id number] 11/04/17 12:02 11/04/17 11:59 Wound Center Nurse 2 [Procedure/Treatment] 15-LEFT LATERAL FOOT -Time 12:02 -Correct Patient Yes -Correct Side, Site, Position Yes -Correct Procedure Yes -Procedure Performed Yes -Type of Procedure Debridement -Clinical Debridement Subcutaneous -Post Debridement Size (cm) - Length 0.5 -Post Debridement Size (cm) - Width 0.3 -Post Debridement Size (cm) - Depth 0.2 -Total Square Cm 0.15 -Wound/Ulcer Outcome Not Healed -Ulcer Cleansing Rinsed/ Irrigated with Saline -Foul Odor after Cleansing No -Bioengineered Tissue No -Bleeding Controlled with Pressure -Treatment Response Procedure Tolerated Well #16- RT LOWER BERNSTEIN CLUSTER -Time 11:59 -Correct Patient Yes -Correct Side, Site, Position Yes -Correct Procedure Yes -Procedure Performed Yes -Type of Procedure Debridement -Clinical Debridement Subcutaneous -Post Debridement Size (cm) - Length 2.8 -Post Debridement Size (cm) - Width 2.8 -Post Debridement Size (cm) - Depth 0.1 -Total Square Cm 7.84 -Wound/Ulcer Outcome Not Healed -Ulcer Cleansing Rinsed/ Irrigated with Saline -Foul Odor after Cleansing No -Bioengineered Tissue No -Bleeding Controlled with Pressure -Treatment Response Procedure Tolerated Well #10 RIGHT ANKLE- ANTERIOR -Time 12:00 -Correct Patient Yes -Correct Side, Site, Position Yes -Correct Procedure Yes -Procedure Performed Yes -Type of Procedure Debridement -Clinical Debridement Subcutaneous -Post Debridement Size (cm) - Length 0.8 -Post Debridement Size (cm) - Width 2.3 -Post Debridement Size (cm) - Depth 0.1 -Total Square Cm 1.84 -Wound/Ulcer Outcome Not Healed -Ulcer Cleansing Rinsed/ Irrigated with Saline -Foul Odor after Cleansing No -Bioengineered Tissue No -Bleeding Controlled with Pressure -Treatment Response Procedure Tolerated Well #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 -Time 12:00 -Correct Patient Yes -Correct Side, Site, Position Yes -Correct Procedure Yes -Procedure Performed Yes -Type of Procedure Debridement -Clinical Debridement Subcutaneous -Post Debridement Size (cm) - Length 0.5 -Post Debridement Size (cm) - Width 0.5 -Post Debridement Size (cm) - Depth 0.1 -Total Square Cm 0.25 -Wound/Ulcer Outcome Not Healed -Ulcer Cleansing Rinsed/ Irrigated with Saline -Foul Odor after Cleansing No -Bioengineered Tissue No -Bleeding Controlled with Pressure -Treatment Response Procedure Tolerated Well #4 Left central TMA -Correct Patient No -Correct Side, Site, Position No -Correct Procedure No -Procedure Performed No #1 right medial heel -Time 12:01 -Correct Patient Yes -Correct Side, Site, Position Yes -Correct Procedure Yes -Type of Procedure Debridement -Clinical Debridement Subcutaneous -Post Debridement Size (cm) - Length 1.6 -Post Debridement Size (cm) - Width 1.6 -Post Debridement Size (cm) - Depth 0.2 -Total Square Cm 2.56 -Wound/Ulcer Outcome Not Healed -Ulcer Cleansing Rinsed/ Irrigated with Saline -Foul Odor after Cleansing No -Bioengineered Tissue No -Bleeding Controlled with Pressure -Treatment Response Procedure Tolerated Well [See Physician Procedure note for Specifics] Pain Scale: 0-10 Numeric [Pain] -Is Patient Pain Free? Yes Musculoskeletal: No Tenderness to Palpation of Joints or Extremities, Muscle Wasting Neurological: - - Lack of epicritic sensation light touch bilateral Psych/Mental Status: Normal Affect, Appropriate Debridement Note Post-Debridement Measurements/Treatment WC - Nurse 2 - General Ulcer CM Notes Start: 10/14/17 11:49 Freq: Status: Active Protocol: Activity Type Activity Date Activity User E-Sign Co-Sign Detail Recorded Client Recorded Date Recorded By Document 10/14/17 12:16 [id number] 10/14/17 12:30 Document 10/21/17 11:46 [id number] 10/21/17 11:53 TM Document 10/28/17 11:37 [id number] 10/28/17 11:44 Document 11/04/17 11:59 [id number] 11/04/17 12:02 10/14/17 10/21/17 10/28/17 12:16 11:46 11:37 Wound Center Nurse 2 15-LEFT LATERAL FOOT -Time -Correct Patient -Correct Side, Site, Position -Correct Procedure -Procedure Performed -Type of Procedure -Clinical Debridement -Post Debridement Size (cm) - Length -Post Debridement Size (cm) - Width -Post Debridement Size (cm) - Depth -Total Square Cm -Wound/Ulcer Outcome -Ulcer Cleansing -Foul Odor after Cleansing -Bioengineered Tissue -Bleeding Controlled with -Treatment Response #16- RT LOWER BERNSTEIN CLUSTER -Time -Correct Patient -Correct Side, Site, Position -Correct Procedure -Procedure Performed -Type of Procedure -Clinical Debridement -Post Debridement Size (cm) - Length -Post Debridement Size (cm) - Width -Post Debridement Size (cm) - Depth -Total Square Cm -Wound/Ulcer Outcome -Ulcer Cleansing -Foul Odor after Cleansing -Bioengineered Tissue -Bleeding Controlled with -Treatment Response #13-right 2nd toe -Time 12:25 11:50 -Correct Patient Yes Yes No -Correct Side, Site, Position Yes Yes No -Correct Procedure Yes Yes No -Procedure Performed Yes Yes No -Type of Procedure Debridement Debridement -Clinical Debridement Subcutaneous Subcutaneous -Post Debridement Size (cm) - Length 0.6 0.6 0 -Post Debridement Size (cm) - Width 1.1 1.1 0 -Post Debridement Size (cm) - Depth 0.1 0.1 0 -Total Square Cm 0.66 0.66 0 -Wound/Ulcer Outcome Not Healed Not Healed Healed- Epithelialized -Ulcer Cleansing Rinsed/ Rinsed/ Irrigated with Irrigated with Saline Saline -Foul Odor after Cleansing No No -Bioengineered Tissue No No -Topical Lidocaine (%) 4 4 -Bleeding Controlled with Pressure Pressure -Treatment Response Procedure Procedure Tolerated Well Tolerated Well #10 RIGHT ANKLE- ANTERIOR -Time 12:26 11:50 11:42 -Correct Patient Yes Yes Yes -Correct Side, Site, Position Yes Yes Yes -Correct Procedure Yes Yes Yes -Procedure Performed Yes Yes Yes -Type of Procedure Debridement Debridement Debridement -Clinical Debridement Subcutaneous Subcutaneous Subcutaneous -Post Debridement Size (cm) - Length 1.9 1.8 2.6 -Post Debridement Size (cm) - Width 2.3 3.3 1.3 -Post Debridement Size (cm) - Depth 0.1 0.1 0.1 -Total Square Cm 4.37 5.94 3.38 -Wound/Ulcer Outcome Not Healed Not Healed Not Healed -Ulcer Cleansing Rinsed/ Rinsed/ Rinsed/ Irrigated with Irrigated with Irrigated with Saline Saline Saline -Foul Odor after Cleansing No No No -Bioengineered Tissue No No No -Topical Lidocaine (%) 4 4 -Bleeding Controlled with Pressure Pressure Pressure Silver Nitrate -Treatment Response Procedure Procedure Procedure Tolerated Well Tolerated Well Tolerated Well #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 -Time 12:26 11:50 11:42 -Correct Patient Yes Yes Yes -Correct Side, Site, Position Yes Yes Yes -Correct Procedure Yes Yes Yes -Procedure Performed Yes Yes Yes -Type of Procedure Debridement Debridement Debridement -Clinical Debridement Subcutaneous Subcutaneous Subcutaneous -Post Debridement Size (cm) - Length 8.1 1.5 0.2 -Post Debridement Size (cm) - Width 9.1 1.1 0.2 -Post Debridement Size (cm) - Depth 0.1 0.1 0.1 -Total Square Cm 73.71 1.65 0.04 -Wound/Ulcer Outcome Not Healed Not Healed Not Healed -Ulcer Cleansing Rinsed/ Rinsed/ Rinsed/ Irrigated with Irrigated with Irrigated with Saline Saline Saline -Foul Odor after Cleansing No No No -Bioengineered Tissue No No No -Topical Lidocaine (%) 4 4 -Bleeding Controlled with Pressure Pressure Pressure -Treatment Response Procedure Procedure Procedure Tolerated Well Tolerated Well Tolerated Well #4 Left central TMA -Time 12:27 11:51 11:43 -Correct Patient Yes Yes Yes -Correct Side, Site, Position Yes Yes Yes -Correct Procedure Yes Yes Yes -Procedure Performed Yes Yes Yes -Type of Procedure Debridement Debridement Debridement -Clinical Debridement Subcutaneous Subcutaneous Subcutaneous -Post Debridement Size (cm) - Length 1.0 0.8 0.8 -Post Debridement Size (cm) - Width 0.5 0.4 0.5 -Post Debridement Size (cm) - Depth 0.2 0.2 0.2 -Total Square Cm 0.50 0.32 0.40 -Wound/Ulcer Outcome Not Healed Not Healed Not Healed -Ulcer Cleansing Rinsed/ Rinsed/ Rinsed/ Irrigated with Irrigated with Irrigated with Saline Saline Saline -Foul Odor after Cleansing No No No -Bioengineered Tissue No No No -Topical Lidocaine (%) 4 4 -Bleeding Controlled with Pressure Pressure Pressure -Treatment Response Procedure Procedure Procedure Tolerated Well Tolerated Well Tolerated Well #1 right medial heel -Time 12:28 11:52 11:43 -Correct Patient Yes Yes Yes -Correct Side, Site, Position Yes Yes Yes -Correct Procedure Yes Yes Yes -Procedure Performed Yes Yes Yes -Type of Procedure Debridement Debridement Debridement -Clinical Debridement Subcutaneous Subcutaneous Subcutaneous -Post Debridement Size (cm) - Length 1.4 1.5 1.5 -Post Debridement Size (cm) - Width 2.3 1.9 1.8 -Post Debridement Size (cm) - Depth 0.2 0.1 0.2 -Total Square Cm 3.22 2.85 2.70 -Wound/Ulcer Outcome Not Healed Not Healed Not Healed -Ulcer Cleansing Rinsed/ Rinsed/ Rinsed/ Irrigated with Irrigated with Irrigated with Saline Saline Saline -Foul Odor after Cleansing No No No -Bioengineered Tissue No No No -Topical Lidocaine (%) 4 4 -Bleeding Controlled with Pressure Pressure Pressure -Treatment Response Procedure Procedure Procedure Tolerated Well Tolerated Well Tolerated Well Pain Scale: 0-10 Numeric Is Patient Pain Free? Yes Yes Yes 11/04/17 11:59 Wound Center Nurse 2 15-LEFT LATERAL FOOT -Time 12:02 -Correct Patient Yes -Correct Side, Site, Position Yes -Correct Procedure Yes -Procedure Performed Yes -Type of Procedure Debridement -Clinical Debridement Subcutaneous -Post Debridement Size (cm) - Length 0.5 -Post Debridement Size (cm) - Width 0.3 -Post Debridement Size (cm) - Depth 0.2 -Total Square Cm 0.15 -Wound/Ulcer Outcome Not Healed -Ulcer Cleansing Rinsed/ Irrigated with Saline -Foul Odor after Cleansing No -Bioengineered Tissue No -Bleeding Controlled with Pressure -Treatment Response Procedure Tolerated Well #16- RT LOWER BERNSTEIN CLUSTER -Time 11:59 -Correct Patient Yes -Correct Side, Site, Position Yes -Correct Procedure Yes -Procedure Performed Yes -Type of Procedure Debridement -Clinical Debridement Subcutaneous -Post Debridement Size (cm) - Length 2.8 -Post Debridement Size (cm) - Width 2.8 -Post Debridement Size (cm) - Depth 0.1 -Total Square Cm 7.84 -Wound/Ulcer Outcome Not Healed -Ulcer Cleansing Rinsed/ Irrigated with Saline -Foul Odor after Cleansing No -Bioengineered Tissue No -Bleeding Controlled with Pressure -Treatment Response Procedure Tolerated Well #13-right 2nd toe -Time -Correct Patient -Correct Side, Site, Position -Correct Procedure -Procedure Performed -Type of Procedure -Clinical Debridement -Post Debridement Size (cm) - Length -Post Debridement Size (cm) - Width -Post Debridement Size (cm) - Depth -Total Square Cm -Wound/Ulcer Outcome -Ulcer Cleansing -Foul Odor after Cleansing -Bioengineered Tissue -Topical Lidocaine (%) -Bleeding Controlled with -Treatment Response #10 RIGHT ANKLE- ANTERIOR -Time 12:00 -Correct Patient Yes -Correct Side, Site, Position Yes -Correct Procedure Yes -Procedure Performed Yes -Type of Procedure Debridement -Clinical Debridement Subcutaneous -Post Debridement Size (cm) - Length 0.8 -Post Debridement Size (cm) - Width 2.3 -Post Debridement Size (cm) - Depth 0.1 -Total Square Cm 1.84 -Wound/Ulcer Outcome Not Healed -Ulcer Cleansing Rinsed/ Irrigated with Saline -Foul Odor after Cleansing No -Bioengineered Tissue No -Topical Lidocaine (%) -Bleeding Controlled with Pressure -Treatment Response Procedure Tolerated Well #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 -Time 12:00 -Correct Patient Yes -Correct Side, Site, Position Yes -Correct Procedure Yes -Procedure Performed Yes -Type of Procedure Debridement -Clinical Debridement Subcutaneous -Post Debridement Size (cm) - Length 0.5 -Post Debridement Size (cm) - Width 0.5 -Post Debridement Size (cm) - Depth 0.1 -Total Square Cm 0.25 -Wound/Ulcer Outcome Not Healed -Ulcer Cleansing Rinsed/ Irrigated with Saline -Foul Odor after Cleansing No -Bioengineered Tissue No -Topical Lidocaine (%) -Bleeding Controlled with Pressure -Treatment Response Procedure Tolerated Well #4 Left central TMA -Time -Correct Patient No -Correct Side, Site, Position No -Correct Procedure No -Procedure Performed No -Type of Procedure -Clinical Debridement -Post Debridement Size (cm) - Length -Post Debridement Size (cm) - Width -Post Debridement Size (cm) - Depth -Total Square Cm -Wound/Ulcer Outcome -Ulcer Cleansing -Foul Odor after Cleansing -Bioengineered Tissue -Topical Lidocaine (%) -Bleeding Controlled with -Treatment Response #1 right medial heel -Time 12:01 -Correct Patient Yes -Correct Side, Site, Position Yes -Correct Procedure Yes -Procedure Performed -Type of Procedure Debridement -Clinical Debridement Subcutaneous -Post Debridement Size (cm) - Length 1.6 -Post Debridement Size (cm) - Width 1.6 -Post Debridement Size (cm) - Depth 0.2 -Total Square Cm 2.56 -Wound/Ulcer Outcome Not Healed -Ulcer Cleansing Rinsed/ Irrigated with Saline -Foul Odor after Cleansing No -Bioengineered Tissue No -Topical Lidocaine (%) -Bleeding Controlled with Pressure -Treatment Response Procedure Tolerated Well Pain Scale: 0-10 Numeric Is Patient Pain Free? Yes Wound debrided: leg Laterality: Right Wound Grade/Stage: grade 1 Type of Debridement: Excisional debridement Anesthesia Used: 4% Lidocaine Solution Depth: in the subcutaneous layer Percentage of wound debrided: 100 Instrument Used: #15 blade Tissue Removed: fibrous, devitalized subcutaneous, biofilm, slough Severity: Fat Layer Exposed Amount of bleeding with debridement: Mild Bleeding Controlled with: Pressure Patient tolerated procedure well - Additional Wound Wound debrided: anterior ankle Laterality: Right Wound Grade/Stage: grade 1 Type of Debridement: Excisional debridement Anesthesia Used: 4% Lidocaine Solution Depth: in the subcutaneous layer Percentage of wound debrided: 100 Instrument Used: #15 blade Tissue Removed: fibrous, devitalized subcutaneous, biofilm, slough Severity: Fat Layer Exposed Amount of bleeding with debridement: Mild Bleeding Controlled with: Pressure Patient tolerated procedure: Patient tolerated procedure well - Additional Wound Wound debrided: heel Laterality: Right Wound Grade/Stage: grade 3 Type of Debridement: Excisional debridement Anesthesia Used: 4% Lidocaine Solution Depth: in the subcutaneous layer Percentage of wound debrided: 100 Instrument Used: #15 blade Tissue Removed: fibrous, devitalized subcutaneous, biofilm, slough Severity: Fat Layer Exposed Amount of bleeding with debridement: Mild Bleeding Controlled with: Pressure Patient tolerated procedure: Patient tolerated procedure well - Additional Wound Wound debrided: lateral foot Laterality: Left Wound Grade/Stage: grade 1 Type of Debridement: Excisional debridement Anesthesia Used: 4% Lidocaine Solution Depth: in the subcutaneous layer Percentage of wound debrided: 100 Instrument Used: #15 blade Tissue Removed: fibrous, devitalized subcutaneous, biofilm, slough Severity: Fat Layer Exposed Amount of bleeding with debridement: Mild Bleeding Controlled with: Pressure Patient tolerated procedure: Patient tolerated procedure well Assessment/Plan Active Problems Lymphedema (Chronic) Venous insufficiency (Chronic) Ulcer of right foot with fat layer exposed (Acute) Lower extremity edema (Acute) Type 2 diabetes mellitus with diabetic polyneuropathy (Chronic) Ulcer of right lower extremity with fat layer exposed (Chronic) Chronic ulcer of left foot with fat layer exposed (Chronic) Physical deconditioning (Chronic) Malnutrition (Chronic) Obesity (Chronic) Assessment: Right heel ulcer with delayed healing lateral left foot ulcer healed. 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 right leg ulcers. Right ankle ulcer with delayed healing. Left lateral foot ulcer, new-no infection. left foot ulcer very chronic. lymphedema and continued leg swelling. rule out peripheral vacular disease and venous insufficiency Plan: I discussed his case and treatment plan. Subcutaneous excisional debridement to all bilateral ulcer sites performed today as noted in the clinical panel. Silver nitrate was applied to the right anterior ankle to decrease hyper granulation tissue last week and this wound bed has significantly epithelialized. He was reassured there are no local signs of infection noted today. He is reassured no infection is noted. His new ulcer site is noted. It is noted he completed a full course of advanced wound care product, epifix,application. To apply Regranex to the ulcer sites 12 hours at she does get it put I noticed a lot better time when he is able to coordinate this with home health or family assistance. If lack of assistance is noted he can resume only Elda use. His healed right second toe ulcer site is noted with full epithelialization. . To maintain improved skin integrity by applying lac hydrin lotion to both legs daily. Continue circaid wraps bilateral legs daily; it is okay to apply tubigrip prior to application of CircAid foot wrap to better keep his wound dressings in place. To continue compression pump device daily; he is doing well with this. To proceed as previously advised with his lymphedema follow-up as advised. He is [facility] from the [facility] at this time and he is ordering a new foot compression garment that the lymphedema nurse recommended. He will follow-up with her the next time updated compression garments are required in approximately 6 months. To continue diuretic medications per primary care physician.To elevate legs at rest. Compliance is imperative and this was discussed again today. To continue with portion control for weight loss and proper glycemic control and nutritional supplementation to optimize healing. His hemoglobin A1c went from 9.0 to 7.4. I recommended he continues to decrease tension to the anterior right ankle ulcer site by returning to the cam walker boot; to weight-bear as tolerated. All of his questions were answered. He understands he is still at risk for limb loss. Due to the chronicity of the left lower extremity as well I recommend an updated left foot x-ray. The x-rays are reviewed without any gross fractures, dislocation, soft tissue emphysema, foreign body, or definitive osteomyelitis changes. There are some minimal reactive changes at the transmetatarsal amputation stump site. His venous and arterial vascular studies are over one year old. These are reordered today to assess his perfusion and edema status. This is reviewed today and according to his noninvasive arterial studies he has noncompressible vessels thus his BAO readings are not accurate. His venous reflux exam demonstrates reflux to multiple veins to bilateral lower extremity. I recommend a vascular surgery follow-up. He is scheduled to see Dr. Peng in November 18. To follow-up at the wound care center in 1 week or call sooner if he has any questions or concerns.
== END 2017-11-13 23:59 ==
LOC: WC 11:00
PROVIDERS: Family Provider Family Medicine; PCP Family Medicine; Visit Provider Podiatrist
DX: E11.622 Type 2 diabetes mellitus with other skin ulcer (principal); I89.0 Lymphedema, not elsewhere classified; I87.2 Venous insufficiency (chronic) (peripheral); E11.51 Type 2 diabetes mellitus with diabetic peripheral angiopathy without gangrene; E11.42 Type 2 diabetes mellitus with diabetic polyneuropathy; E11.621 Type 2 diabetes mellitus with foot ulcer; L97.412 Non-pressure chronic ulcer of right heel and midfoot with fat layer exposed; L97.312 Non-pressure chronic ulcer of right ankle with fat layer exposed; L97.512 Non-pressure chronic ulcer of other part of right foot with fat layer exposed; L97.522 Non-pressure chronic ulcer of other part of left foot with fat layer exposed
CPT/HCPCS: 11042

== ENCOUNTER 2017-12-09 13:30 | Outpatient (RCR) | payer MEDICARE, MEDICAID, SELFPAY ==
[2017-11-14 00:43] VITALS: BP 165/79; PULSE 64; RESP 16; TEMP 35.3
[2017-11-18 10:52] VITALS: BP 147/66; PULSE 52; RESP 18; TEMP 35.6
--- NOTE | 2017-11-18 12:02 | PCM.WC.PN ---
(1) Chronic ulcer of left foot with fat layer exposed Status: Chronic Current Visit: Yes Code(s): L97.522 - Non-pressure chronic ulcer of other part of left foot with fat layer exposed (2) Ulcer of right lower extremity with fat layer exposed Status: Chronic Current Visit: Yes Code(s): L97.912 - Non-pressure chronic ulcer of unspecified part of right lower leg with fat layer exposed (3) Ulcer of right foot with fat layer exposed Status: Chronic Current Visit: Yes Code(s): L97.512 - Non-pressure chronic ulcer of other part of right foot with fat layer exposed (4) Lymphedema Status: Chronic Current Visit: Yes Code(s): I89.0 - Lymphedema, not elsewhere classified (5) Venous insufficiency Status: Chronic Current Visit: Yes Code(s): I87.2 - Venous insufficiency (chronic) (peripheral) (6) Peripheral vascular disease Status: Suspected Current Visit: Yes Code(s): I73.9 - Peripheral vascular disease, unspecified (7) Lower extremity edema Status: Chronic Current Visit: Yes Code(s): R60.0 - Localized edema (8) Type 2 diabetes mellitus with diabetic polyneuropathy Status: Chronic Current Visit: Yes Code(s): E11.42 - Type 2 diabetes mellitus with diabetic polyneuropathy (9) Malnutrition Status: Chronic Current Visit: Yes Code(s): E46 - Unspecified protein-calorie malnutrition Type of Wound Date of Service: 11/18/17 Chief Complaint: Right heel ulcer with delayed healing. 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 left lateral foot ulcer. right leg ulcers. Right ankle ulcer with delayed healing. lymphedema and continued leg swelling History of Wound: 62 year old male was seen for right heel ulcer with chronic osteomyelitis, left foot ulcers (two), and right ankle ulcer. He denies fever, chill, nausea, vomiting. He has Regranex at home and home health has been helping when he has help available with the dressing changes. He uses the compession pump 2-3 times a day with significant edema reduction. He is scheduled a vascular follow-up November 18. He has been following up with the lymphedema clinic as advised and I reviewed his progress note. He denies redness or odor. She was evaluated by vascular surgeon, Dr. Peng this morning plans to go for arterial intervention to the left lower extremity followed by subsequent venous intervention at a later date. Progress of Wound: delayed healing - Physical Exam Vital Signs Temp Pulse Resp BP 96.0 F L 52 L 18 147/66 H 11/18/17 10:52 11/18/17 10:52 11/18/17 10:52 11/18/17 10:52 General: Alert, Oriented x3, Cooperative Extremities: No cyanosis, Capillary Refill Less than 3 Seconds, No Calf Tenderness - Negative Keara and Simmons sign bilateral, Diminished Peripheral Pulses, Edema - Moderate bilateral lower extremities Skin: Ulcer/ Wound - No purulence, no erythema, wheezing, no odor, no infection bilateral. No deep exposed deep tissue, necrosis bilateral., - - Peripheral skin is hairless atrophic Wound Measurements and Assessment WC - Nurse 1 - General Ulcer Measurement Start: 11/18/17 10:52 Freq: Status: Active Protocol: Activity Type Activity Date Activity User E-Sign Co-Sign Detail Recorded Client Recorded Date Recorded By Document 11/18/17 10:52 [id number] 11/18/17 11:01 11/18/17 10:52 Wound Center Nurse 1 [Ulcer Assessment] 15-LEFT LATERAL FOOT -Combined with other wound No -Current Size (cm) - Length 0.3 -Current Size (cm) - Width 0.3 -Current Size (cm) - Depth 0.1 -Total Square Cm 0.09 -Photo Taken No -Epithelialization Large 67-100% -Tunneling No -Undermining/Tunneling No -Circular Undermining No -Exudate Amt None Present (0 %) -Wound Margin Flat & Intact -Granulation Amt Large (67-100%) -Granulation Quality [place] -Slough/Fibrin Yes -Necrosis Amt Small (1-33%) -Necrotic Tissue Type Adherent Slough -Structure Exposed N/A -Texture (Susy-wound Skin Appearance) Assessed Localized Edema -Moisture (Susy-wound Skin Appearance Assessed ) Dry/Scaly -Color (Susy-wound Skin Appearance) Assessed -Temperature (Susy-wound Skin No Abnormality Appearance) (Pt Warm) -Tenderness on Palpation (Susy-wound No Skin Appearance) -Ulcer Cleansing Rinsed/ Irrigated with Saline -Foul Odor after Cleansing No -Anesthetic Used 4% Lidocaine Solution #16- RT LOWER BERNSTEIN CLUSTER -Combined with other wound No -Current Size (cm) - Length 0.1 -Current Size (cm) - Width 0.1 -Current Size (cm) - Depth 0.1 -Total Square Cm 0.01 -Photo Taken No -Epithelialization Large 67-100% -Tunneling No -Undermining/Tunneling No -Circular Undermining No -Exudate Amt None Present (0 %) -Wound Margin Flat & Intact -Granulation Amt None Present (0 %) -Slough/Fibrin Yes -Necrosis Amt Small (1-33%) -Necrotic Tissue Type Adherent Slough -Structure Exposed N/A -Texture (Susy-wound Skin Appearance) Assessed Localized Edema Scarring -Moisture (Susy-wound Skin Appearance Assessed ) Dry/Scaly -Color (Susy-wound Skin Appearance) Assessed Hemosiderin Staining -Temperature (Susy-wound Skin No Abnormality Appearance) (Pt Warm) -Tenderness on Palpation (Susy-wound No Skin Appearance) -Ulcer Cleansing Rinsed/ Irrigated with Saline -Foul Odor after Cleansing No -Anesthetic Used 4% Lidocaine Solution #10 RIGHT ANKLE- ANTERIOR -Combined with other wound No -Current Size (cm) - Length 0.8 -Current Size (cm) - Width 1.6 -Current Size (cm) - Depth 0.1 -Total Square Cm 1.28 -Photo Taken No -Epithelialization Large 67-100% -Tunneling No -Undermining/Tunneling No -Circular Undermining No -Exudate Amt Small (1-33%) -Exudate Type Serosanguineous -Wound Margin Flat & Intact -Granulation Amt Medium (34-66%) -Granulation Quality Red -Slough/Fibrin Yes -Necrosis Amt Small (1-33%) -Necrotic Tissue Type Adherent Slough -Structure Exposed N/A -Texture (Susy-wound Skin Appearance) Assessed Localized Edema Scarring -Moisture (Susy-wound Skin Appearance Assessed ) Dry/Scaly -Color (Susy-wound Skin Appearance) Assessed -Temperature (Susy-wound Skin No Abnormality Appearance) (Pt Warm) -Tenderness on Palpation (Susy-wound No Skin Appearance) -Ulcer Cleansing Rinsed/ Irrigated with Saline -Foul Odor after Cleansing No -Anesthetic Used 4% Lidocaine Solution #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 -Combined with other wound No -Current Size (cm) - Length 7 -Current Size (cm) - Width 8 -Current Size (cm) - Depth 0.1 -Total Square Cm 56 -Photo Taken No -Epithelialization None Present -Tunneling No -Undermining/Tunneling No -Circular Undermining No -Exudate Amt Small (1-33%) -Exudate Type Serosanguineous -Wound Margin Flat & Intact -Granulation Amt Medium (34-66%) -Granulation Quality Red -Slough/Fibrin Yes -Necrosis Amt Small (1-33%) -Necrotic Tissue Type Adherent Slough -Structure Exposed N/A -Texture (Susy-wound Skin Appearance) Assessed Localized Edema -Moisture (Susy-wound Skin Appearance Assessed ) Weeping Dry/Scaly -Color (Susy-wound Skin Appearance) Assessed Hemosiderin Staining -Temperature (Susy-wound Skin No Abnormality Appearance) (Pt Warm) -Tenderness on Palpation (Susy-wound No Skin Appearance) -Ulcer Cleansing Wound Cleanser -Foul Odor after Cleansing No -Anesthetic Used 4% Lidocaine Solution #4 Left central TMA -Combined with other wound No -Current Size (cm) - Length 1.1 -Current Size (cm) - Width 0.4 -Current Size (cm) - Depth 0.1 -Total Square Cm 0.44 -Photo Taken No -Epithelialization Medium 34-66% -Tunneling No -Undermining/Tunneling No -Circular Undermining No -Exudate Amt Small (1-33%) -Exudate Type Serosanguineous -Wound Margin Flat & Intact -Granulation Amt Medium (34-66%) -Granulation Quality Red -Slough/Fibrin Yes -Necrosis Amt Small (1-33%) -Necrotic Tissue Type Adherent Slough -Structure Exposed N/A -Texture (Susy-wound Skin Appearance) Assessed Localized Edema -Moisture (Susy-wound Skin Appearance Assessed ) Dry/Scaly -Color (Susy-wound Skin Appearance) Assessed -Temperature (Susy-wound Skin No Abnormality Appearance) (Pt Warm) -Tenderness on Palpation (Susy-wound No Skin Appearance) -Ulcer Cleansing Rinsed/ Irrigated with Saline -Foul Odor after Cleansing No -Anesthetic Used 4% Lidocaine Solution #1 right medial heel -Combined with other wound No -Current Size (cm) - Length 1.1 -Current Size (cm) - Width 1.8 -Current Size (cm) - Depth 0.1 -Total Square Cm 1.98 -Photo Taken No -Epithelialization Medium 34-66% -Tunneling No -Undermining/Tunneling No -Circular Undermining No -Exudate Amt Small (1-33%) -Exudate Type Serosanguineous -Wound Margin Flat & Intact -Granulation Amt Large (67-100%) -Granulation Quality Red -Slough/Fibrin Yes -Necrosis Amt Small (1-33%) -Necrotic Tissue Type Adherent Slough -Structure Exposed N/A -Texture (Susy-wound Skin Appearance) Assessed Localized Edema -Moisture (Susy-wound Skin Appearance Assessed ) Dry/Scaly -Color (Susy-wound Skin Appearance) Assessed Hemosiderin Staining -Temperature (Susy-wound Skin No Abnormality Appearance) (Pt Warm) -Tenderness on Palpation (Susy-wound No Skin Appearance) -Ulcer Cleansing Rinsed/ Irrigated with Saline -Foul Odor after Cleansing No -Anesthetic Used 4% Lidocaine Solution [Edema Assessment] -Lower Limb Edema Present Yes -Right Calf (cm) 49.2 -Right Ankle (cm) 31.5 -Left Calf (cm) 49.4 -Left Ankle (cm) 28.8 WC - Nurse 2 - General Ulcer CM Notes Start: 11/18/17 10:52 Freq: Status: Active Protocol: Activity Type Activity Date Activity User E-Sign Co-Sign Detail Recorded Client Recorded Date Recorded By Document 11/18/17 11:15 NORRIS [id number] 11/18/17 11:17 11/18/17 11:15 Wound Center Nurse 2 [Procedure/Treatment] 15-LEFT LATERAL FOOT -Time 11:16 -Correct Patient Yes -Correct Side, Site, Position Yes -Correct Procedure Yes -Procedure Performed Yes -Type of Procedure Debridement -Clinical Debridement Subcutaneous -Post Debridement Size (cm) - Length 0.3 -Post Debridement Size (cm) - Width 0.4 -Post Debridement Size (cm) - Depth 0.1 -Total Square Cm 0.12 -Wound/Ulcer Outcome Not Healed -Ulcer Cleansing Rinsed/ Irrigated with Saline -Foul Odor after Cleansing No -Bioengineered Tissue No -Bleeding Controlled with Pressure -Treatment Response Procedure Tolerated Well #16- RT LOWER BERNSTEIN CLUSTER -Time 11:16 -Correct Patient Yes -Correct Side, Site, Position Yes -Correct Procedure Yes -Procedure Performed Yes -Type of Procedure Debridement -Clinical Debridement Subcutaneous -Post Debridement Size (cm) - Length 0.2 -Post Debridement Size (cm) - Width 0.2 -Post Debridement Size (cm) - Depth 0.1 -Total Square Cm 0.04 -Wound/Ulcer Outcome Not Healed -Ulcer Cleansing Rinsed/ Irrigated with Saline -Foul Odor after Cleansing No -Bioengineered Tissue No -Bleeding Controlled with Pressure -Treatment Response Procedure Tolerated Well #10 RIGHT ANKLE- ANTERIOR -Time 11:16 -Correct Patient Yes -Correct Side, Site, Position Yes -Correct Procedure Yes -Procedure Performed Yes -Type of Procedure Debridement -Clinical Debridement Subcutaneous -Post Debridement Size (cm) - Length 1 -Post Debridement Size (cm) - Width 1.6 -Post Debridement Size (cm) - Depth 0.1 -Total Square Cm 1.6 -Wound/Ulcer Outcome Not Healed -Ulcer Cleansing Rinsed/ Irrigated with Saline -Foul Odor after Cleansing No -Bioengineered Tissue No -Bleeding Controlled with Pressure -Treatment Response Procedure Tolerated Well #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 -Time 11:16 -Correct Patient Yes -Correct Side, Site, Position Yes -Correct Procedure Yes -Procedure Performed Yes -Type of Procedure Debridement -Clinical Debridement Subcutaneous -Post Debridement Size (cm) - Length 7 -Post Debridement Size (cm) - Width 8.1 -Post Debridement Size (cm) - Depth 0.1 -Total Square Cm 56.7 -Wound/Ulcer Outcome Not Healed -Ulcer Cleansing Rinsed/ Irrigated with Saline -Foul Odor after Cleansing No -Bioengineered Tissue No -Bleeding Controlled with Pressure -Treatment Response Procedure Tolerated Well #4 Left central TMA -Time 11:17 -Correct Patient Yes -Correct Side, Site, Position Yes -Correct Procedure Yes -Procedure Performed Yes -Type of Procedure Debridement -Clinical Debridement Subcutaneous -Post Debridement Size (cm) - Length 1.2 -Post Debridement Size (cm) - Width 0.5 -Post Debridement Size (cm) - Depth 0.1 -Total Square Cm 0.60 -Wound/Ulcer Outcome Not Healed -Ulcer Cleansing Rinsed/ Irrigated with Saline -Foul Odor after Cleansing No -Bioengineered Tissue No -Bleeding Controlled with Pressure -Treatment Response Procedure Tolerated Well #1 right medial heel -Time 11:17 -Correct Patient Yes -Correct Side, Site, Position Yes -Correct Procedure Yes -Procedure Performed Yes -Type of Procedure Debridement -Clinical Debridement Subcutaneous -Post Debridement Size (cm) - Length 1.2 -Post Debridement Size (cm) - Width 1.8 -Post Debridement Size (cm) - Depth 0.1 -Total Square Cm 2.16 -Wound/Ulcer Outcome Not Healed -Ulcer Cleansing Rinsed/ Irrigated with Saline -Foul Odor after Cleansing No -Bioengineered Tissue No -Bleeding Controlled with Pressure -Treatment Response Procedure Tolerated Well [See Physician Procedure note for Specifics] Pain Scale: 0-10 Numeric [Pain] -Is Patient Pain Free? Yes Musculoskeletal: No Tenderness to Palpation of Joints or Extremities, Muscle Wasting, - - Transmetatarsal amputation right hallux amputation Neurological: - - Lack of epicritic sensation to light touch Psych/Mental Status: Normal Affect, Appropriate Debridement Note Post-Debridement Measurements/Treatment WC - Nurse 2 - General Ulcer CM Notes Start: 11/18/17 10:52 Freq: Status: Active Protocol: Activity Type Activity Date Activity User E-Sign Co-Sign Detail Recorded Client Recorded Date Recorded By Document 11/18/17 11:15 NORRIS [id number] 11/18/17 11:17 NORRIS 11/18/17 11:15 Wound Center Nurse 2 15-LEFT LATERAL FOOT -Time 11:16 -Correct Patient Yes -Correct Side, Site, Position Yes -Correct Procedure Yes -Procedure Performed Yes -Type of Procedure Debridement -Clinical Debridement Subcutaneous -Post Debridement Size (cm) - Length 0.3 -Post Debridement Size (cm) - Width 0.4 -Post Debridement Size (cm) - Depth 0.1 -Total Square Cm 0.12 -Wound/Ulcer Outcome Not Healed -Ulcer Cleansing Rinsed/ Irrigated with Saline -Foul Odor after Cleansing No -Bioengineered Tissue No -Bleeding Controlled with Pressure -Treatment Response Procedure Tolerated Well #16- RT LOWER BERNSTEIN CLUSTER -Time 11:16 -Correct Patient Yes -Correct Side, Site, Position Yes -Correct Procedure Yes -Procedure Performed Yes -Type of Procedure Debridement -Clinical Debridement Subcutaneous -Post Debridement Size (cm) - Length 0.2 -Post Debridement Size (cm) - Width 0.2 -Post Debridement Size (cm) - Depth 0.1 -Total Square Cm 0.04 -Wound/Ulcer Outcome Not Healed -Ulcer Cleansing Rinsed/ Irrigated with Saline -Foul Odor after Cleansing No -Bioengineered Tissue No -Bleeding Controlled with Pressure -Treatment Response Procedure Tolerated Well #10 RIGHT ANKLE- ANTERIOR -Time 11:16 -Correct Patient Yes -Correct Side, Site, Position Yes -Correct Procedure Yes -Procedure Performed Yes -Type of Procedure Debridement -Clinical Debridement Subcutaneous -Post Debridement Size (cm) - Length 1 -Post Debridement Size (cm) - Width 1.6 -Post Debridement Size (cm) - Depth 0.1 -Total Square Cm 1.6 -Wound/Ulcer Outcome Not Healed -Ulcer Cleansing Rinsed/ Irrigated with Saline -Foul Odor after Cleansing No -Bioengineered Tissue No -Bleeding Controlled with Pressure -Treatment Response Procedure Tolerated Well #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 -Time 11:16 -Correct Patient Yes -Correct Side, Site, Position Yes -Correct Procedure Yes -Procedure Performed Yes -Type of Procedure Debridement -Clinical Debridement Subcutaneous -Post Debridement Size (cm) - Length 7 -Post Debridement Size (cm) - Width 8.1 -Post Debridement Size (cm) - Depth 0.1 -Total Square Cm 56.7 -Wound/Ulcer Outcome Not Healed -Ulcer Cleansing Rinsed/ Irrigated with Saline -Foul Odor after Cleansing No -Bioengineered Tissue No -Bleeding Controlled with Pressure -Treatment Response Procedure Tolerated Well #4 Left central TMA -Time 11:17 -Correct Patient Yes -Correct Side, Site, Position Yes -Correct Procedure Yes -Procedure Performed Yes -Type of Procedure Debridement -Clinical Debridement Subcutaneous -Post Debridement Size (cm) - Length 1.2 -Post Debridement Size (cm) - Width 0.5 -Post Debridement Size (cm) - Depth 0.1 -Total Square Cm 0.60 -Wound/Ulcer Outcome Not Healed -Ulcer Cleansing Rinsed/ Irrigated with Saline -Foul Odor after Cleansing No -Bioengineered Tissue No -Bleeding Controlled with Pressure -Treatment Response Procedure Tolerated Well #1 right medial heel -Time 11:17 -Correct Patient Yes -Correct Side, Site, Position Yes -Correct Procedure Yes -Procedure Performed Yes -Type of Procedure Debridement -Clinical Debridement Subcutaneous -Post Debridement Size (cm) - Length 1.2 -Post Debridement Size (cm) - Width 1.8 -Post Debridement Size (cm) - Depth 0.1 -Total Square Cm 2.16 -Wound/Ulcer Outcome Not Healed -Ulcer Cleansing Rinsed/ Irrigated with Saline -Foul Odor after Cleansing No -Bioengineered Tissue No -Bleeding Controlled with Pressure -Treatment Response Procedure Tolerated Well Pain Scale: 0-10 Numeric Is Patient Pain Free? Yes pasha Wound debrided: heel Laterality: Right Wound Grade/Stage: grade 3 Type of Debridement: Excisional debridement Anesthesia Used: 4% Lidocaine Solution Depth: in the subcutaneous layer Percentage of wound debrided: 100 Instrument Used: #15 blade Tissue Removed: fibrous, devitalized subcutaneous, biofilm, slough Severity: Fat Layer Exposed Amount of bleeding with debridement: Mild Bleeding Controlled with: Pressure Patient tolerated procedure well - Additional Wound Wound debrided: leg Laterality: Right Wound Grade/Stage: grade 1 Anesthesia Used: 4% Lidocaine Solution Depth: in the subcutaneous layer Percentage of wound debrided: 100 Instrument Used: #15 blade Tissue Removed: fibrous, devitalized subcutaneous, biofilm, slough Severity: Fat Layer Exposed Amount of bleeding with debridement: Mild Bleeding Controlled with: Pressure Patient tolerated procedure: Patient tolerated procedure well - Additional Wound Wound debrided: anterior ankle Laterality: Right Wound Grade/Stage: grade 1 Type of Debridement: Excisional debridement Anesthesia Used: 4% Lidocaine Solution Depth: in the subcutaneous layer Percentage of wound debrided: 100 Instrument Used: #15 blade Tissue Removed: fibrous, devitalized subcutaneous, biofilm, slough Severity: Fat Layer Exposed Amount of bleeding with debridement: Mild Bleeding Controlled with: Pressure Patient tolerated procedure: Patient tolerated procedure well - Additional Wound Wound debrided: central stump foot Wound Grade/Stage: grade 1 Type of Debridement: Excisional debridement Anesthesia Used: 4% Lidocaine Solution Depth: in the subcutaneous layer Percentage of wound debrided: 100 Instrument Used: #15 blade Tissue Removed: fibrous, devitalized subcutaneous, biofilm, slough Severity: Fat Layer Exposed Amount of bleeding with debridement: Mild Bleeding Controlled with: Pressure Patient tolerated procedure: Patient tolerated procedure well - Additional Wound Wound debrided: lateral foot Laterality: Left Wound Grade/Stage: grade 1 Type of Debridement: Excisional debridement Anesthesia Used: 4% Lidocaine Solution Depth: in the subcutaneous layer Percentage of wound debrided: 100 Instrument Used: #15 blade Tissue Removed: fibrous, devitalized subcutaneous, biofilm, slough Severity: Fat Layer Exposed Amount of bleeding with debridement: Mild Bleeding Controlled with: Pressure Patient tolerated procedure: Patient tolerated procedure well Assessment/Plan Active Problems Lymphedema (Chronic) Venous insufficiency (Chronic) Ulcer of right foot with fat layer exposed (Chronic) Chronic ulcer of left foot with fat layer exposed (Chronic) Lower extremity edema (Chronic) Type 2 diabetes mellitus with diabetic polyneuropathy (Chronic) Ulcer of right lower extremity with fat layer exposed (Chronic) Type 2 diabetes mellitus with diabetic polyneuropathy (Chronic) Malnutrition (Chronic) Assessment: Right heel ulcer with delayed healing lateral left foot ulcer healed. 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 right leg ulcers. Right ankle ulcer with delayed healing. Left lateral foot ulcer, new-no infection. left foot ulcer very chronic. lymphedema and continued leg swelling. rule out peripheral vacular disease and venous insufficiency Plan: I discussed his case and treatment plan. Subcutaneous excisional debridement to all bilateral ulcer sites performed today as noted in the clinical panel. He was reassured there are no local signs of infection noted today. He was reassured no infection is noted. It is noted he completed a full course of advanced wound care product, epifix,application. To apply Regranex to the ulcer sites 12 hours at she does get it put I noticed a lot better time when he is able to coordinate this with home health or family assistance. If lack of assistance is noted he can resume only [place]a use. . To maintain improved skin integrity by applying lac hydrin lotion to both legs daily. Continue circaid wraps bilateral legs daily; it is okay to apply tubigrip prior to application of CircAid foot wrap to better keep his wound dressings in place. To continue compression pump device daily; he is doing well with this. To proceed as previously advised with his lymphedema follow-up as advised. He is [facility] from the [facility] at this time and he is ordering a new foot compression garment that the lymphedema nurse recommended. He will follow-up with her the next time updated compression garments are required in approximately 6 months. To continue diuretic medications per primary care physician.To elevate legs at rest. Compliance is imperative and this was discussed again today. To continue with portion control for weight loss and proper glycemic control and nutritional supplementation to optimize healing. His hemoglobin A1c went from 9.0 to 7.4. I recommended he continues to decrease tension to the anterior right ankle ulcer site by returning to the cam walker boot; to weight-bear as tolerated. All of his questions were answered. He understands he is still at risk for limb loss. Due to the chronicity of the left lower extremity as well I recommend an updated left foot x-ray. The x-rays are reviewed without any gross fractures, dislocation, soft tissue emphysema, foreign body, or definitive osteomyelitis changes. There are some minimal reactive changes at the transmetatarsal amputation stump site. His venous and arterial vascular studies are over one year old. These are reordered today to assess his perfusion and edema status. This is reviewed today and according to his noninvasive arterial studies he has noncompressible vessels thus his BAO readings are not accurate. His venous reflux exam demonstrates reflux to multiple veins to bilateral lower extremity. I recommend a vascular surgery follow-up. She completed consultation with vascular surgeon, Dr. Peng, this morning. Arterial angiogram with potential intervention will be scheduled in the near future and secondarily venous intervention will be considered as well. Full note to be requested. To follow-up at the wound care center in 1 week or call sooner if he has any questions or concerns.
[2017-11-25 11:34] VITALS: BP 151/70; PULSE 51; RESP 18; TEMP 35.7
--- NOTE | 2017-11-25 13:22 | PCM.WC.PN ---
(1) Chronic ulcer of left foot with fat layer exposed Status: Chronic Current Visit: Yes Code(s): L97.522 - Non-pressure chronic ulcer of other part of left foot with fat layer exposed (2) Ulcer of right lower extremity with fat layer exposed Status: Chronic Current Visit: Yes Code(s): L97.912 - Non-pressure chronic ulcer of unspecified part of right lower leg with fat layer exposed (3) Ulcer of right foot with fat layer exposed Status: Chronic Current Visit: Yes Code(s): L97.512 - Non-pressure chronic ulcer of other part of right foot with fat layer exposed (4) Lymphedema Status: Chronic Current Visit: Yes Code(s): I89.0 - Lymphedema, not elsewhere classified (5) Venous insufficiency Status: Chronic Current Visit: Yes Code(s): I87.2 - Venous insufficiency (chronic) (peripheral) (6) Peripheral vascular disease Status: Suspected Current Visit: Yes Code(s): I73.9 - Peripheral vascular disease, unspecified (7) Lower extremity edema Status: Chronic Current Visit: Yes Code(s): R60.0 - Localized edema (8) Type 2 diabetes mellitus with diabetic polyneuropathy Status: Chronic Current Visit: Yes Code(s): E11.42 - Type 2 diabetes mellitus with diabetic polyneuropathy (9) Malnutrition Status: Chronic Current Visit: Yes Code(s): E46 - Unspecified protein-calorie malnutrition Type of Wound Date of Service: 11/25/17 Chief Complaint: Right heel ulcer with delayed healing. 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 left lateral foot ulcer. right leg ulcers. Right ankle ulcer with delayed healing. lymphedema and continued leg swelling History of Wound: 62 year old male was seen for right heel ulcer with chronic osteomyelitis, left foot ulcers (two), and right ankle ulcer. He denies fever, chill, nausea, vomiting. He has Regranex at home and home health has been helping when he has help available with the dressing changes. He uses the compession pump 2-3 times a day with significant edema reduction. He is scheduled a vascular follow-up November 18. He has been following up with the lymphedema clinic as advised and I reviewed his progress note. He denies redness or odor. he was evaluated by vascular surgeon, Dr. Peng this morning plans to go for arterial intervention to the left lower extremity followed by subsequent venous intervention at a later date. His initial procedure dated December 23, 2017. Progress of Wound: delayed healing - Physical Exam Vital Signs Temp Pulse Resp BP 96.2 F L 51 L 18 151/70 H 11/25/17 11:34 11/25/17 11:34 11/25/17 11:34 11/25/17 11:34 General: Alert, Oriented x3, Cooperative Extremities: No cyanosis, Capillary Refill Less than 3 Seconds, No Calf Tenderness, Diminished Peripheral Pulses, Edema Skin: Ulcer/ Wound - No purulence, no erythema, streaking, no odor, no infection, no exposed deep tissue bilateral. His skin is atrophic and hairless bilateral Wound Measurements and Assessment WC - Nurse 1 - General Ulcer Measurement Start: 11/18/17 10:52 Freq: Status: Active Protocol: Activity Type Activity Date Activity User E-Sign Co-Sign Detail Recorded Client Recorded Date Recorded By Document 11/25/17 11:22 FERNY [id number] 11/25/17 11:32 RB 11/25/17 11:22 Wound Center Nurse 1 [Ulcer Assessment] 15-LEFT LATERAL FOOT -Combined with other wound No -Current Size (cm) - Length 0.1 -Current Size (cm) - Width 0.1 -Current Size (cm) - Depth 0.1 -Total Square Cm 0.01 -Photo Taken No -Tunneling No -Undermining/Tunneling No -Circular Undermining No -Exudate Amt None Present (0 %) -Wound Margin Distinct, Outline Attached -Granulation Amt Large (67-100%) -Granulation Quality [place] -Slough/Fibrin Yes -Necrosis Amt Small (1-33%) -Necrotic Tissue Type Adherent Slough -Structure Exposed N/A -Texture (Susy-wound Skin Appearance) Assessed -Moisture (Susy-wound Skin Appearance Assessed ) Dry/Scaly -Color (Susy-wound Skin Appearance) Assessed -Temperature (Susy-wound Skin No Abnormality Appearance) (Pt Warm) -Tenderness on Palpation (Susy-wound No Skin Appearance) -Ulcer Cleansing Wound Cleanser -Foul Odor after Cleansing No -Anesthetic Used 4% Lidocaine Solution #16- RT LOWER BERNSTEIN CLUSTER -Combined with other wound No -Current Size (cm) - Length 21.5 -Current Size (cm) - Width 12.5 -Current Size (cm) - Depth 0.1 -Total Square Cm 268.75 -Photo Taken No -Tunneling No -Undermining/Tunneling No -Circular Undermining No -Classification - Thickness Full Thickness without Exposed Support Structure -Exudate Amt Small (1-33%) -Exudate Type Serosanguineous -Wound Margin Distinct, Outline Attached -Granulation Amt Medium (34-66%) -Granulation Quality [place] -Slough/Fibrin Yes -Necrosis Amt Small (1-33%) -Necrotic Tissue Type Adherent Slough -Structure Exposed N/A -Texture (Susy-wound Skin Appearance) Assessed -Moisture (Susy-wound Skin Appearance Assessed ) -Color (Susy-wound Skin Appearance) Assessed -Temperature (Susy-wound Skin No Abnormality Appearance) (Pt Warm) -Ulcer Cleansing Wound Cleanser -Foul Odor after Cleansing No -Anesthetic Used 4% Lidocaine Solution #10 RIGHT ANKLE- ANTERIOR -Combined with other wound No -Current Size (cm) - Length 0.8 -Current Size (cm) - Width 1.6 -Current Size (cm) - Depth 0.1 -Total Square Cm 1.28 -Photo Taken No -Tunneling No -Undermining/Tunneling No -Circular Undermining No -Classification - Thickness Full Thickness without Exposed Support Structure -Exudate Amt Small (1-33%) -Exudate Type Serosanguineous -Wound Margin Distinct, Outline Attached -Granulation Amt Medium (34-66%) -Granulation Quality [place] -Slough/Fibrin Yes -Necrosis Amt Small (1-33%) -Necrotic Tissue Type Adherent Slough -Structure Exposed N/A -Texture (Susy-wound Skin Appearance) Assessed -Moisture (Susy-wound Skin Appearance Assessed ) -Color (Susy-wound Skin Appearance) Assessed -Temperature (Susy-wound Skin No Abnormality Appearance) (Pt Warm) -Tenderness on Palpation (Susy-wound No Skin Appearance) -Ulcer Cleansing Wound Cleanser -Foul Odor after Cleansing No -Anesthetic Used 4% Lidocaine Solution #4 Left central TMA -Combined with other wound No -Current Size (cm) - Length 1.2 -Current Size (cm) - Width 3.5 -Current Size (cm) - Depth 0.2 -Total Square Cm 4.20 -Photo Taken No -Tunneling No -Undermining/Tunneling No -Circular Undermining No -Classification - Thickness Full Thickness without Exposed Support Structure -Exudate Amt Small (1-33%) -Exudate Type Serosanguineous -Wound Margin Distinct, Outline Attached -Granulation Amt Medium (34-66%) -Granulation Quality [place] -Slough/Fibrin Yes -Necrosis Amt Small (1-33%) -Necrotic Tissue Type Adherent Slough -Structure Exposed N/A -Texture (Susy-wound Skin Appearance) Assessed -Moisture (Susy-wound Skin Appearance Assessed ) Dry/Scaly -Color (Susy-wound Skin Appearance) Assessed -Temperature (Susy-wound Skin No Abnormality Appearance) (Pt Warm) -Tenderness on Palpation (Susy-wound No Skin Appearance) -Ulcer Cleansing Wound Cleanser -Foul Odor after Cleansing No -Anesthetic Used 4% Lidocaine Solution #1 right medial heel -Combined with other wound No -Current Size (cm) - Length 1.3 -Current Size (cm) - Width 1.8 -Current Size (cm) - Depth 0.2 -Total Square Cm 2.34 -Photo Taken No -Tunneling No -Undermining/Tunneling No -Circular Undermining No -Exudate Amt Medium (34-66%) -Exudate Type Serosanguineous -Wound Margin Distinct, Outline Attached -Granulation Amt Medium (34-66%) -Granulation Quality [place] -Slough/Fibrin Yes -Necrosis Amt Small (1-33%) -Necrotic Tissue Type Adherent Slough -Structure Exposed N/A -Texture (Susy-wound Skin Appearance) Assessed Callus -Moisture (Susy-wound Skin Appearance Assessed ) -Color (Susy-wound Skin Appearance) Assessed -Temperature (Susy-wound Skin No Abnormality Appearance) (Pt Warm) -Tenderness on Palpation (Susy-wound No Skin Appearance) -Ulcer Cleansing Wound Cleanser -Foul Odor after Cleansing No -Anesthetic Used 4% Lidocaine Solution [Edema Assessment] -Lower Limb Edema Present Yes -Right Calf (cm) 50 -Right Ankle (cm) 29.5 -Left Calf (cm) 46 -Left Ankle (cm) 28.6 WC - Nurse 2 - General Ulcer CM Notes Start: 11/18/17 10:52 Freq: Status: Active Protocol: Activity Type Activity Date Activity User E-Sign Co-Sign Detail Recorded Client Recorded Date Recorded By Document 11/25/17 11:53 NORRIS [id number] 11/25/17 11:57 NORRIS 11/25/17 11:53 Wound Center Nurse 2 [Procedure/Treatment] 15-LEFT LATERAL FOOT -Time 11:53 -Correct Patient Yes -Correct Side, Site, Position Yes -Correct Procedure Yes -Procedure Performed Yes -Type of Procedure Debridement -Clinical Debridement Subcutaneous -Post Debridement Size (cm) - Length 0.5 -Post Debridement Size (cm) - Width 0.6 -Post Debridement Size (cm) - Depth 0.1 -Total Square Cm 0.30 -Wound/Ulcer Outcome Not Healed -Ulcer Cleansing Rinsed/ Irrigated with Saline -Foul Odor after Cleansing No -Bioengineered Tissue No -Bleeding Controlled with Pressure -Treatment Response Procedure Tolerated Well #16- RT LOWER BERNSTEIN CLUSTER -Time 11:53 -Correct Patient Yes -Correct Side, Site, Position Yes -Correct Procedure Yes -Procedure Performed Yes -Type of Procedure Debridement -Clinical Debridement Subcutaneous -Post Debridement Size (cm) - Length 8.5 -Post Debridement Size (cm) - Width 3.3 -Post Debridement Size (cm) - Depth 0.1 -Total Square Cm 28.05 -Wound/Ulcer Outcome Not Healed -Ulcer Cleansing Rinsed/ Irrigated with Saline -Foul Odor after Cleansing No -Bioengineered Tissue No -Bleeding Controlled with Pressure -Treatment Response Procedure Tolerated Well #10 RIGHT ANKLE- ANTERIOR -Time 11:54 -Correct Patient Yes -Correct Side, Site, Position Yes -Correct Procedure Yes -Procedure Performed Yes -Type of Procedure Debridement -Clinical Debridement Subcutaneous -Post Debridement Size (cm) - Length 0.8 -Post Debridement Size (cm) - Width 1.8 -Post Debridement Size (cm) - Depth 0.1 -Total Square Cm 1.44 -Wound/Ulcer Outcome Not Healed -Ulcer Cleansing Rinsed/ Irrigated with Saline -Foul Odor after Cleansing No -Bioengineered Tissue No -Bleeding Controlled with Pressure -Treatment Response Procedure Tolerated Well #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 -Time 11:54 -Correct Patient Yes -Correct Side, Site, Position Yes -Correct Procedure Yes -Procedure Performed Yes -Type of Procedure Debridement -Clinical Debridement Subcutaneous -Post Debridement Size (cm) - Length 0.2 -Post Debridement Size (cm) - Width 0.2 -Post Debridement Size (cm) - Depth 0.1 -Total Square Cm 0.04 -Wound/Ulcer Outcome Not Healed -Ulcer Cleansing Rinsed/ Irrigated with Saline -Foul Odor after Cleansing No -Bioengineered Tissue No -Bleeding Controlled with Pressure -Treatment Response Procedure Tolerated Well #4 Left central TMA -Time 11:54 -Correct Patient Yes -Correct Side, Site, Position Yes -Correct Procedure Yes -Procedure Performed Yes -Type of Procedure Debridement -Clinical Debridement Subcutaneous -Post Debridement Size (cm) - Length 0.9 -Post Debridement Size (cm) - Width 0.4 -Post Debridement Size (cm) - Depth 0.1 -Total Square Cm 0.36 -Wound/Ulcer Outcome Not Healed -Ulcer Cleansing Rinsed/ Irrigated with Saline -Foul Odor after Cleansing No -Bioengineered Tissue No -Bleeding Controlled with Pressure -Treatment Response Procedure Tolerated Well #1 right medial heel -Time 11:55 -Correct Patient Yes -Correct Side, Site, Position Yes -Correct Procedure Yes -Procedure Performed Yes -Type of Procedure Debridement -Clinical Debridement Subcutaneous -Post Debridement Size (cm) - Length 1.3 -Post Debridement Size (cm) - Width 1.9 -Post Debridement Size (cm) - Depth 0.1 -Total Square Cm 2.47 -Wound/Ulcer Outcome Not Healed -Ulcer Cleansing Rinsed/ Irrigated with Saline -Foul Odor after Cleansing No -Bioengineered Tissue No -Bleeding Controlled with Pressure -Treatment Response Procedure Tolerated Well [See Physician Procedure note for Specifics] Pain Scale: 0-10 Numeric [Pain] -Is Patient Pain Free? Yes Musculoskeletal: No Tenderness to Palpation of Joints or Extremities, Muscle Wasting, - - Left transmetatarsal amputation. Right hallux amputation. Neurological: - - Lack of epicritic sensation light touch bilateral lower extremities consistent with neuropathy Psych/Mental Status: Normal Affect, Appropriate Debridement Note Post-Debridement Measurements/Treatment WC - Nurse 2 - General Ulcer CM Notes Start: 11/18/17 10:52 Freq: Status: Active Protocol: Activity Type Activity Date Activity User E-Sign Co-Sign Detail Recorded Client Recorded Date Recorded By Document 11/18/17 11:15 NORRIS [id number] 11/18/17 11:17 Document 11/25/17 11:53 JF [id number] 11/25/17 11:57 11/18/17 11/25/17 11:15 11:53 Wound Center Nurse 2 15-LEFT LATERAL FOOT -Time 11:16 11:53 -Correct Patient Yes Yes -Correct Side, Site, Position Yes Yes -Correct Procedure Yes Yes -Procedure Performed Yes Yes -Type of Procedure Debridement Debridement -Clinical Debridement Subcutaneous Subcutaneous -Post Debridement Size (cm) - Length 0.3 0.5 -Post Debridement Size (cm) - Width 0.4 0.6 -Post Debridement Size (cm) - Depth 0.1 0.1 -Total Square Cm 0.12 0.30 -Wound/Ulcer Outcome Not Healed Not Healed -Ulcer Cleansing Rinsed/ Rinsed/ Irrigated with Irrigated with Saline Saline -Foul Odor after Cleansing No No -Bioengineered Tissue No No -Bleeding Controlled with Pressure Pressure -Treatment Response Procedure Procedure Tolerated Well Tolerated Well #16- RT LOWER BERNSTEIN CLUSTER -Time 11:16 11:53 -Correct Patient Yes Yes -Correct Side, Site, Position Yes Yes -Correct Procedure Yes Yes -Procedure Performed Yes Yes -Type of Procedure Debridement Debridement -Clinical Debridement Subcutaneous Subcutaneous -Post Debridement Size (cm) - Length 0.2 8.5 -Post Debridement Size (cm) - Width 0.2 3.3 -Post Debridement Size (cm) - Depth 0.1 0.1 -Total Square Cm 0.04 28.05 -Wound/Ulcer Outcome Not Healed Not Healed -Ulcer Cleansing Rinsed/ Rinsed/ Irrigated with Irrigated with Saline Saline -Foul Odor after Cleansing No No -Bioengineered Tissue No No -Bleeding Controlled with Pressure Pressure -Treatment Response Procedure Procedure Tolerated Well Tolerated Well #10 RIGHT ANKLE- ANTERIOR -Time 11:16 11:54 -Correct Patient Yes Yes -Correct Side, Site, Position Yes Yes -Correct Procedure Yes Yes -Procedure Performed Yes Yes -Type of Procedure Debridement Debridement -Clinical Debridement Subcutaneous Subcutaneous -Post Debridement Size (cm) - Length 1 0.8 -Post Debridement Size (cm) - Width 1.6 1.8 -Post Debridement Size (cm) - Depth 0.1 0.1 -Total Square Cm 1.6 1.44 -Wound/Ulcer Outcome Not Healed Not Healed -Ulcer Cleansing Rinsed/ Rinsed/ Irrigated with Irrigated with Saline Saline -Foul Odor after Cleansing No No -Bioengineered Tissue No No -Bleeding Controlled with Pressure Pressure -Treatment Response Procedure Procedure Tolerated Well Tolerated Well #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 -Time 11:16 11:54 -Correct Patient Yes Yes -Correct Side, Site, Position Yes Yes -Correct Procedure Yes Yes -Procedure Performed Yes Yes -Type of Procedure Debridement Debridement -Clinical Debridement Subcutaneous Subcutaneous -Post Debridement Size (cm) - Length 7 0.2 -Post Debridement Size (cm) - Width 8.1 0.2 -Post Debridement Size (cm) - Depth 0.1 0.1 -Total Square Cm 56.7 0.04 -Wound/Ulcer Outcome Not Healed Not Healed -Ulcer Cleansing Rinsed/ Rinsed/ Irrigated with Irrigated with Saline Saline -Foul Odor after Cleansing No No -Bioengineered Tissue No No -Bleeding Controlled with Pressure Pressure -Treatment Response Procedure Procedure Tolerated Well Tolerated Well #4 Left central TMA -Time 11:17 11:54 -Correct Patient Yes Yes -Correct Side, Site, Position Yes Yes -Correct Procedure Yes Yes -Procedure Performed Yes Yes -Type of Procedure Debridement Debridement -Clinical Debridement Subcutaneous Subcutaneous -Post Debridement Size (cm) - Length 1.2 0.9 -Post Debridement Size (cm) - Width 0.5 0.4 -Post Debridement Size (cm) - Depth 0.1 0.1 -Total Square Cm 0.60 0.36 -Wound/Ulcer Outcome Not Healed Not Healed -Ulcer Cleansing Rinsed/ Rinsed/ Irrigated with Irrigated with Saline Saline -Foul Odor after Cleansing No No -Bioengineered Tissue No No -Bleeding Controlled with Pressure Pressure -Treatment Response Procedure Procedure Tolerated Well Tolerated Well #1 right medial heel -Time 11:17 11:55 -Correct Patient Yes Yes -Correct Side, Site, Position Yes Yes -Correct Procedure Yes Yes -Procedure Performed Yes Yes -Type of Procedure Debridement Debridement -Clinical Debridement Subcutaneous Subcutaneous -Post Debridement Size (cm) - Length 1.2 1.3 -Post Debridement Size (cm) - Width 1.8 1.9 -Post Debridement Size (cm) - Depth 0.1 0.1 -Total Square Cm 2.16 2.47 -Wound/Ulcer Outcome Not Healed Not Healed -Ulcer Cleansing Rinsed/ Rinsed/ Irrigated with Irrigated with Saline Saline -Foul Odor after Cleansing No No -Bioengineered Tissue No No -Bleeding Controlled with Pressure Pressure -Treatment Response Procedure Procedure Tolerated Well Tolerated Well Pain Scale: 0-10 Numeric Is Patient Pain Free? Yes Yes Wound debrided: heel Laterality: Right Wound Grade/Stage: grade 3 Type of Debridement: Excisional debridement Anesthesia Used: 4% Lidocaine Solution Depth: in the subcutaneous layer Percentage of wound debrided: 100 Instrument Used: #15 blade Tissue Removed: fibrous, devitalized subcutaneous, biofilm, slough Severity: Fat Layer Exposed Amount of bleeding with debridement: Mild Bleeding Controlled with: Pressure Patient tolerated procedure well - Additional Wound Wound debrided: anterior ankle Laterality: Right Wound Grade/Stage: grade 1 Depth: in the subcutaneous layer Percentage of wound debrided: 100 Instrument Used: #15 blade Tissue Removed: fibrous, devitalized subcutaneous, biofilm, slough Severity: Fat Layer Exposed Amount of bleeding with debridement: Mild Bleeding Controlled with: Pressure Patient tolerated procedure: Patient tolerated procedure well - Additional Wound Wound debrided: leg cluster Laterality: Right Wound Grade/Stage: grade 1 Type of Debridement: Excisional debridement Anesthesia Used: 4% Lidocaine Solution Depth: in the subcutaneous layer Percentage of wound debrided: 40 Instrument Used: #15 blade Tissue Removed: fibrous, devitalized subcutaneous, biofilm, slough Severity: Fat Layer Exposed Amount of bleeding with debridement: Mild Bleeding Controlled with: Pressure Patient tolerated procedure: Patient tolerated procedure well - Additional Wound Wound debrided: central foot stump Laterality: Left Wound Grade/Stage: grade 1 Type of Debridement: Excisional debridement Anesthesia Used: 4% Lidocaine Solution Depth: in the subcutaneous layer Percentage of wound debrided: 100 Instrument Used: #15 blade Tissue Removed: fibrous, devitalized subcutaneous, biofilm, slough Severity: Fat Layer Exposed Amount of bleeding with debridement: Mild Bleeding Controlled with: Pressure Patient tolerated procedure: Patient tolerated procedure well - Additional Wound Wound debrided: lateral foot Laterality: Left Wound Grade/Stage: grade 1 Type of Debridement: Excisional debridement Anesthesia Used: 4% Lidocaine Solution Depth: in the subcutaneous layer Percentage of wound debrided: 100 Instrument Used: #15 blade Tissue Removed: fibrous, devitalized subcutaneous, biofilm, slough Severity: Fat Layer Exposed Amount of bleeding with debridement: Mild Bleeding Controlled with: Pressure Patient tolerated procedure: Patient tolerated procedure well Assessment/Plan Active Problems Lymphedema (Chronic) Venous insufficiency (Chronic) Ulcer of right foot with fat layer exposed (Chronic) Chronic ulcer of left foot with fat layer exposed (Chronic) Lower extremity edema (Chronic) Type 2 diabetes mellitus with diabetic polyneuropathy (Chronic) Ulcer of right lower extremity with fat layer exposed (Chronic) Type 2 diabetes mellitus with diabetic polyneuropathy (Chronic) Malnutrition (Chronic) Assessment: Right heel ulcer with delayed healing lateral left foot ulcer healed. 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 right leg ulcers. Right ankle ulcer with delayed healing. Left lateral foot ulcer, new-no infection. left foot ulcer very chronic. lymphedema and continued leg swelling. rule out peripheral vacular disease and venous insufficiency Plan: I discussed his case and treatment plan. Subcutaneous excisional debridement to all bilateral ulcer sites performed today as noted in the clinical panel. He was reassured there are no local signs of infection noted today. He was reassured no infection is noted. It is noted he completed a full course of advanced wound care product, epifix,application. To apply Regranex to the ulcer sites 12 hours at she does get it put I noticed a lot better time when he is able to coordinate this with home health or family assistance. If lack of assistance is noted he can resume only Elda use. . To maintain improved skin integrity by applying lac hydrin lotion to both legs daily. Continue circaid wraps bilateral legs daily; it is okay to apply tubigrip prior to application of CircAid foot wrap to better keep his wound dressings in place. To continue compression pump device daily; he is doing well with this. To proceed as previously advised with his lymphedema follow-up as advised. He is [facility] from the [facility] at this time and he is ordering a new foot compression garment that the lymphedema nurse recommended. He will follow-up with her the next time updated compression garments are required in approximately 6 months. To continue diuretic medications per primary care physician.To elevate legs at rest. Compliance is imperative and this was discussed again today. To continue with portion control for weight loss and proper glycemic control and nutritional supplementation to optimize healing. His hemoglobin A1c went from 9.0 to 7.4. I recommended he continues to decrease tension to the anterior right ankle ulcer site by returning to the cam walker boot; to weight-bear as tolerated. All of his questions were answered. He understands he is still at risk for limb loss. Due to the chronicity of the left lower extremity as well I recommend an updated left foot x-ray. The x-rays are reviewed without any gross fractures, dislocation, soft tissue emphysema, foreign body, or definitive osteomyelitis changes. There are some minimal reactive changes at the transmetatarsal amputation stump site. His venous and arterial vascular studies are over one year old. These are reordered today to assess his perfusion and edema status. This is reviewed today and according to his noninvasive arterial studies he has noncompressible vessels thus his BAO readings are not accurate. His venous reflux exam demonstrates reflux to multiple veins to bilateral lower extremity. I recommend a vascular surgery follow-up. She completed consultation with vascular surgeon, Dr. Peng, this morning. Arterial angiogram with potential intervention has been scheduled for December 23, 2017. To follow-up at the wound care center in 1 week or call sooner if he has any questions or concerns.
[2017-12-02 11:47] VITALS: BP 162/69; PULSE 50; RESP 18; TEMP 36.2
--- NOTE | 2017-12-02 15:24 | PN.PCM_ITS ---
(1) Chronic ulcer of left foot with fat layer exposed Status: Chronic Code(s): L97.522 - Non-pressure chronic ulcer of other part of left foot with fat layer exposed (2) Ulcer of right lower extremity with fat layer exposed Status: Chronic Code(s): L97.912 - Non-pressure chronic ulcer of unspecified part of right lower leg with fat layer exposed (3) Ulcer of right foot with fat layer exposed Status: Chronic Code(s): L97.512 - Non-pressure chronic ulcer of other part of right foot with fat layer exposed (4) Lymphedema Status: Chronic Code(s): I89.0 - Lymphedema, not elsewhere classified (5) Venous insufficiency Status: Chronic Code(s): I87.2 - Venous insufficiency (chronic) (peripheral) (6) Peripheral vascular disease Status: Suspected Code(s): I73.9 - Peripheral vascular disease, unspecified (7) Lower extremity edema Status: Chronic Code(s): R60.0 - Localized edema (8) Type 2 diabetes mellitus with diabetic polyneuropathy Status: Chronic Code(s): E11.42 - Type 2 diabetes mellitus with diabetic polyneuropathy (9) Malnutrition Status: Chronic Code(s): E46 - Unspecified protein-calorie malnutrition Type of Wound Date of Service: 12/05/17 Chief Complaint: Right heel ulcer with delayed healing. 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 left lateral foot ulcer. right leg ulcers. Right ankle ulcer with delayed healing. lymphedema and continued leg swelling History of Wound: 62 year old male was seen for right heel ulcer with chronic osteomyelitis, left foot ulcers (two), and right ankle ulcer. He denies fever , chill, nausea, vomiting. He has Regranex at home and home health has been helping when he has help available with the dressing changes. He uses the compession pump 2-3 times a day with significant edema reduction. He has been scheduled for a vascular invasive intervention with Dr. Peng. He has been following up with the lymphedema clinic as advised and I reviewed his progress note. He denies redness or odor. His initial vascular procedure is scheduled for December 23, 2017. Progress of Wound: Some sites are improving some are stable still - Physical Exam Vital Signs Temp Pulse Resp BP 97.2 F L 50 L 18 162/69 H 12/02/17 11:47 12/02/17 11:47 12/02/17 11:47 12/02/17 11:47 General: Alert, Oriented x3, Cooperative Extremities: No cyanosis, Capillary Refill Less than 3 Seconds, No Calf Tenderness - Negative [place] and Simmons bilateral, Diminished Peripheral Pulses, Edema - Bilateral Skin: Ulcer/ Wound - No purulence, no erythema, streaking, no odor, no infection , - - The skin is atrophic and hairless Wound Measurements and Assessment WC - Nurse 1 - General Ulcer Measurement Start: 11/18/17 10:52 Freq: Status: Active Protocol: Activity Type Activity Date Activity User E-Sign Co-Sign Detail Recorded Client Recorded Date Recorded By Document 12/02/17 11:47 RB [id number] 12/02/17 12:07 RB 12/02/17 11:47 Wound Center Nurse 1 [Ulcer Assessment] 15-LEFT LATERAL FOOT -Combined with other wound No -Current Size (cm) - Length 0.5 -Current Size (cm) - Width 0.4 -Current Size (cm) - Depth 0.1 -Total Square Cm 0.20 -Photo Taken No -Tunneling No -Undermining/Tunneling No -Circular Undermining No -Exudate Amt Small (1-33%) -Exudate Type Serosanguineous -Wound Margin Distinct, Outline Attached -Granulation Amt Medium (34-66%) -Granulation Quality [place] -Slough/Fibrin Yes -Necrosis Amt Small (1-33%) -Necrotic Tissue Type Adherent Slough -Structure Exposed N/A -Texture (Susy-wound Skin Appearance) Assessed -Moisture (Susy-wound Skin Appearance Assessed ) -Color (Susy-wound Skin Appearance) Assessed -Temperature (Susy-wound Skin No Abnormality Appearance) (Pt Warm) -Tenderness on Palpation (Susy-wound No Skin Appearance) -Ulcer Cleansing Wound Cleanser -Foul Odor after Cleansing No -Anesthetic Used 4% Lidocaine Solution #16- RT LOWER BERNSTEIN CLUSTER -Combined with other wound No -Current Size (cm) - Length 3 -Current Size (cm) - Width 2.5 -Current Size (cm) - Depth 0.1 -Total Square Cm 7.5 -Photo Taken No -Tunneling No -Undermining/Tunneling No -Circular Undermining No -Exudate Amt Small (1-33%) -Exudate Type Serosanguineous -Wound Margin Distinct, Outline Attached -Granulation Amt Medium (34-66%) -Granulation Quality [place] -Slough/Fibrin Yes -Necrosis Amt Medium (34-66%) -Necrotic Tissue Type Adherent Slough -Structure Exposed N/A -Texture (Susy-wound Skin Appearance) Assessed -Moisture (Susy-wound Skin Appearance Assessed ) Dry/Scaly -Color (Susy-wound Skin Appearance) Assessed -Temperature (Susy-wound Skin No Abnormality Appearance) (Pt Warm) -Tenderness on Palpation (Susy-wound No Skin Appearance) -Ulcer Cleansing Wound Cleanser -Foul Odor after Cleansing No -Anesthetic Used 4% Lidocaine Solution #10 RIGHT ANKLE- ANTERIOR -Combined with other wound No -Current Size (cm) - Length 0.3 -Current Size (cm) - Width 1.5 -Current Size (cm) - Depth 0.1 -Total Square Cm 0.45 -Photo Taken No -Tunneling No -Undermining/Tunneling No -Circular Undermining No -Exudate Amt Small (1-33%) -Exudate Type Serosanguineous -Wound Margin Distinct, Outline Attached -Granulation Amt Medium (34-66%) -Granulation Quality [place] -Slough/Fibrin Yes -Necrosis Amt Medium (34-66%) -Necrotic Tissue Type Adherent Slough -Texture (Susy-wound Skin Appearance) Assessed -Moisture (Susy-wound Skin Appearance Assessed ) -Color (Susy-wound Skin Appearance) Assessed -Temperature (Susy-wound Skin No Abnormality Appearance) (Pt Warm) -Tenderness on Palpation (Susy-wound No Skin Appearance) -Ulcer Cleansing Rinsed/ Irrigated with Saline -Foul Odor after Cleansing No -Anesthetic Used 4% Lidocaine Solution #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 -Combined with other wound No -Current Size (cm) - Length 9 -Current Size (cm) - Width 8.5 -Current Size (cm) - Depth 0.1 -Total Square Cm 76.5 -Photo Taken No -Tunneling No -Undermining/Tunneling No -Circular Undermining No -Exudate Amt Small (1-33%) -Exudate Type Serosanguineous -Wound Margin Distinct, Outline Attached -Granulation Amt Medium (34-66%) -Granulation Quality [place] -Slough/Fibrin Yes -Necrosis Amt Small (1-33%) -Necrotic Tissue Type Adherent Slough -Structure Exposed N/A -Texture (Susy-wound Skin Appearance) Assessed -Moisture (Susy-wound Skin Appearance Assessed ) -Color (Susy-wound Skin Appearance) Assessed -Temperature (Susy-wound Skin No Abnormality Appearance) (Pt Warm) -Tenderness on Palpation (Susy-wound No Skin Appearance) -Ulcer Cleansing Wound Cleanser -Foul Odor after Cleansing No -Anesthetic Used 4% Lidocaine Solution #4 Left central TMA -Combined with other wound No -Current Size (cm) - Length 0.5 -Current Size (cm) - Width 1.4 -Current Size (cm) - Depth 0.2 -Total Square Cm 0.70 -Photo Taken No -Tunneling No -Undermining/Tunneling No -Circular Undermining No -Exudate Amt Small (1-33%) -Exudate Type Serosanguineous -Wound Margin Distinct, Outline Attached -Granulation Amt Medium (34-66%) -Slough/Fibrin Yes -Necrosis Amt Small (1-33%) -Necrotic Tissue Type Adherent Slough -Structure Exposed N/A -Texture (Susy-wound Skin Appearance) Assessed -Moisture (Susy-wound Skin Appearance Assessed ) Dry/Scaly -Color (Susy-wound Skin Appearance) Assessed -Temperature (Susy-wound Skin No Abnormality Appearance) (Pt Warm) -Tenderness on Palpation (Susy-wound No Skin Appearance) -Ulcer Cleansing Rinsed/ Irrigated with Saline -Foul Odor after Cleansing No -Anesthetic Used 4% Lidocaine Solution #1 right medial heel -Combined with other wound No -Current Size (cm) - Length 1.3 -Current Size (cm) - Width 1.7 -Current Size (cm) - Depth 0.2 -Total Square Cm 2.21 -Photo Taken No -Tunneling No -Undermining/Tunneling No -Circular Undermining No -Exudate Amt Small (1-33%) -Exudate Type Serosanguineous -Wound Margin Distinct, Outline Attached -Granulation Amt Medium (34-66%) -Granulation Quality [place] -Necrosis Amt Medium (34-66%) -Necrotic Tissue Type Adherent Slough -Structure Exposed N/A -Texture (Susy-wound Skin Appearance) Assessed -Moisture (Susy-wound Skin Appearance Assessed ) -Color (Susy-wound Skin Appearance) Assessed -Temperature (Susy-wound Skin No Abnormality Appearance) (Pt Warm) -Tenderness on Palpation (Susy-wound No Skin Appearance) -Ulcer Cleansing Wound Cleanser -Foul Odor after Cleansing No -Anesthetic Used 4% Lidocaine Solution [Edema Assessment] -Lower Limb Edema Present Yes -Right Calf (cm) 48 -Right Ankle (cm) 30 -Left Calf (cm) 50 -Left Ankle (cm) 27.5 WC - Nurse 2 - General Ulcer CM Notes Start: 11/18/17 10:52 Freq: Status: Active Protocol: Activity Type Activity Date Activity User E-Sign Co-Sign Detail Recorded Client Recorded Date Recorded By Document 12/02/17 12:31 NORRIS [id number] 12/02/17 12:34 NORRIS 12/02/17 12:31 Wound Center Nurse 2 [Procedure/Treatment] 15-LEFT LATERAL FOOT -Time 12:31 -Correct Patient Yes -Correct Side, Site, Position Yes -Correct Procedure Yes -Procedure Performed Yes -Type of Procedure Debridement -Clinical Debridement Subcutaneous -Post Debridement Size (cm) - Length 0.5 -Post Debridement Size (cm) - Width 0.5 -Post Debridement Size (cm) - Depth 0.1 -Total Square Cm 0.25 -Wound/Ulcer Outcome Not Healed -Ulcer Cleansing Rinsed/ Irrigated with Saline -Foul Odor after Cleansing No -Bioengineered Tissue No -Bleeding Controlled with Pressure -Treatment Response Procedure Tolerated Well #16- RT LOWER BERNSTEIN CLUSTER -Time 12:32 -Correct Patient Yes -Correct Side, Site, Position Yes -Correct Procedure Yes -Procedure Performed Yes -Type of Procedure Debridement -Clinical Debridement Subcutaneous -Post Debridement Size (cm) - Length 3 -Post Debridement Size (cm) - Width 2.6 -Post Debridement Size (cm) - Depth 0.1 -Total Square Cm 7.8 -Wound/Ulcer Outcome Not Healed -Ulcer Cleansing Rinsed/ Irrigated with Saline -Foul Odor after Cleansing No -Bioengineered Tissue No -Bleeding Controlled with Pressure -Treatment Response Procedure Tolerated Well #17-right 2nd toe -Time 12:35 -Correct Patient Yes -Correct Side, Site, Position Yes -Correct Procedure Yes -Procedure Performed Yes -Type of Procedure Debridement -Clinical Debridement Subcutaneous -Post Debridement Size (cm) - Length 0.4 -Post Debridement Size (cm) - Width 0.6 -Post Debridement Size (cm) - Depth 0.1 -Total Square Cm 0.24 -Wound/Ulcer Outcome Not Healed -Ulcer Cleansing Rinsed/ Irrigated with Saline -Foul Odor after Cleansing No -Bioengineered Tissue No -Bleeding Controlled with Pressure -Treatment Response Procedure Tolerated Well #10 RIGHT ANKLE- ANTERIOR -Time 12:32 -Correct Patient Yes -Correct Side, Site, Position Yes -Correct Procedure Yes -Procedure Performed Yes -Type of Procedure Debridement -Clinical Debridement Subcutaneous -Post Debridement Size (cm) - Length 0.4 -Post Debridement Size (cm) - Width 1.5 -Post Debridement Size (cm) - Depth 0.1 -Total Square Cm 0.60 -Wound/Ulcer Outcome Not Healed -Ulcer Cleansing Rinsed/ Irrigated with Saline -Foul Odor after Cleansing No -Bioengineered Tissue No -Bleeding Controlled with Pressure -Treatment Response Procedure Tolerated Well #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 -Time 12:32 -Correct Patient Yes -Correct Side, Site, Position Yes -Correct Procedure Yes -Procedure Performed Yes -Type of Procedure Debridement -Clinical Debridement Subcutaneous -Post Debridement Size (cm) - Length 9 -Post Debridement Size (cm) - Width 8.6 -Post Debridement Size (cm) - Depth 0.1 -Total Square Cm 77.4 -Wound/Ulcer Outcome Not Healed -Ulcer Cleansing Rinsed/ Irrigated with Saline -Foul Odor after Cleansing No -Bioengineered Tissue No -Bleeding Controlled with Pressure -Treatment Response Procedure Tolerated Well #4 Left central TMA -Time 12:33 -Correct Patient Yes -Correct Side, Site, Position Yes -Correct Procedure Yes -Procedure Performed Yes -Type of Procedure Debridement -Clinical Debridement Subcutaneous -Post Debridement Size (cm) - Length 0.5 -Post Debridement Size (cm) - Width 1.5 -Post Debridement Size (cm) - Depth 0.2 -Total Square Cm 0.75 -Wound/Ulcer Outcome Not Healed -Ulcer Cleansing Rinsed/ Irrigated with Saline -Foul Odor after Cleansing No -Bioengineered Tissue No -Bleeding Controlled with Pressure -Treatment Response Procedure Tolerated Well #1 right medial heel -Time 12:33 -Correct Patient Yes -Correct Side, Site, Position Yes -Correct Procedure Yes -Procedure Performed Yes -Type of Procedure Debridement -Clinical Debridement Subcutaneous -Post Debridement Size (cm) - Length 1.4 -Post Debridement Size (cm) - Width 1.7 -Post Debridement Size (cm) - Depth 0.2 -Total Square Cm 2.38 -Wound/Ulcer Outcome Not Healed -Ulcer Cleansing Rinsed/ Irrigated with Saline -Foul Odor after Cleansing No -Bioengineered Tissue No -Bleeding Controlled with Pressure -Treatment Response Procedure Tolerated Well [See Physician Procedure note for Specifics] Pain Scale: 0-10 Numeric [Pain] -Is Patient Pain Free? Yes Musculoskeletal: No Tenderness to Palpation of Joints or Extremities, Muscle Wasting, - - Left transmetatarsal amputation Neurological: - - Lack of epicritic sensation light touch bilateral Psych/Mental Status: Normal Affect, Appropriate Debridement Note Post-Debridement Measurements/Treatment WC - Nurse 2 - General Ulcer CM Notes Start: 11/18/17 10:52 Freq: Status: Active Protocol: Activity Type Activity Date Activity User E-Sign Co-Sign Detail Recorded Client Recorded Date Recorded By Document 11/18/17 11:15 [id number] 11/18/17 11:17 Document 11/25/17 11:53 [id number] 11/25/17 11:57 Document 12/02/17 12:31 [id number] 12/02/17 12:34 11/18/17 11/25/17 12/02/17 11:15 11:53 12:31 Wound Center Nurse 2 15-LEFT LATERAL FOOT -Time 11:16 11:53 12:31 -Correct Patient Yes Yes Yes -Correct Side, Site, Position Yes Yes Yes -Correct Procedure Yes Yes Yes -Procedure Performed Yes Yes Yes -Type of Procedure Debridement Debridement Debridement -Clinical Debridement Subcutaneous Subcutaneous Subcutaneous -Post Debridement Size (cm) - Length 0.3 0.5 0.5 -Post Debridement Size (cm) - Width 0.4 0.6 0.5 -Post Debridement Size (cm) - Depth 0.1 0.1 0.1 -Total Square Cm 0.12 0.30 0.25 -Wound/Ulcer Outcome Not Healed Not Healed Not Healed -Ulcer Cleansing Rinsed/ Rinsed/ Rinsed/ Irrigated with Irrigated with Irrigated with Saline Saline Saline -Foul Odor after Cleansing No No No -Bioengineered Tissue No No No -Bleeding Controlled with Pressure Pressure Pressure -Treatment Response Procedure Procedure Procedure Tolerated Well Tolerated Well Tolerated Well #16- RT LOWER BERNSTEIN CLUSTER -Time 11:16 11:53 12:32 -Correct Patient Yes Yes Yes -Correct Side, Site, Position Yes Yes Yes -Correct Procedure Yes Yes Yes -Procedure Performed Yes Yes Yes -Type of Procedure Debridement Debridement Debridement -Clinical Debridement Subcutaneous Subcutaneous Subcutaneous -Post Debridement Size (cm) - Length 0.2 8.5 3 -Post Debridement Size (cm) - Width 0.2 3.3 2.6 -Post Debridement Size (cm) - Depth 0.1 0.1 0.1 -Total Square Cm 0.04 28.05 7.8 -Wound/Ulcer Outcome Not Healed Not Healed Not Healed -Ulcer Cleansing Rinsed/ Rinsed/ Rinsed/ Irrigated with Irrigated with Irrigated with Saline Saline Saline -Foul Odor after Cleansing No No No -Bioengineered Tissue No No No -Bleeding Controlled with Pressure Pressure Pressure -Treatment Response Procedure Procedure Procedure Tolerated Well Tolerated Well Tolerated Well #17-right 2nd toe -Time 12:35 -Correct Patient Yes -Correct Side, Site, Position Yes -Correct Procedure Yes -Procedure Performed Yes -Type of Procedure Debridement -Clinical Debridement Subcutaneous -Post Debridement Size (cm) - Length 0.4 -Post Debridement Size (cm) - Width 0.6 -Post Debridement Size (cm) - Depth 0.1 -Total Square Cm 0.24 -Wound/Ulcer Outcome Not Healed -Ulcer Cleansing Rinsed/ Irrigated with Saline -Foul Odor after Cleansing No -Bioengineered Tissue No -Bleeding Controlled with Pressure -Treatment Response Procedure Tolerated Well #10 RIGHT ANKLE- ANTERIOR -Time 11:16 11:54 12:32 -Correct Patient Yes Yes Yes -Correct Side, Site, Position Yes Yes Yes -Correct Procedure Yes Yes Yes -Procedure Performed Yes Yes Yes -Type of Procedure Debridement Debridement Debridement -Clinical Debridement Subcutaneous Subcutaneous Subcutaneous -Post Debridement Size (cm) - Length 1 0.8 0.4 -Post Debridement Size (cm) - Width 1.6 1.8 1.5 -Post Debridement Size (cm) - Depth 0.1 0.1 0.1 -Total Square Cm 1.6 1.44 0.60 -Wound/Ulcer Outcome Not Healed Not Healed Not Healed -Ulcer Cleansing Rinsed/ Rinsed/ Rinsed/ Irrigated with Irrigated with Irrigated with Saline Saline Saline -Foul Odor after Cleansing No No No -Bioengineered Tissue No No No -Bleeding Controlled with Pressure Pressure Pressure -Treatment Response Procedure Procedure Procedure Tolerated Well Tolerated Well Tolerated Well #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 -Time 11:16 11:54 12:32 -Correct Patient Yes Yes Yes -Correct Side, Site, Position Yes Yes Yes -Correct Procedure Yes Yes Yes -Procedure Performed Yes Yes Yes -Type of Procedure Debridement Debridement Debridement -Clinical Debridement Subcutaneous Subcutaneous Subcutaneous -Post Debridement Size (cm) - Length 7 0.2 9 -Post Debridement Size (cm) - Width 8.1 0.2 8.6 -Post Debridement Size (cm) - Depth 0.1 0.1 0.1 -Total Square Cm 56.7 0.04 77.4 -Wound/Ulcer Outcome Not Healed Not Healed Not Healed -Ulcer Cleansing Rinsed/ Rinsed/ Rinsed/ Irrigated with Irrigated with Irrigated with Saline Saline Saline -Foul Odor after Cleansing No No No -Bioengineered Tissue No No No -Bleeding Controlled with Pressure Pressure Pressure -Treatment Response Procedure Procedure Procedure Tolerated Well Tolerated Well Tolerated Well #4 Left central TMA -Time 11:17 11:54 12:33 -Correct Patient Yes Yes Yes -Correct Side, Site, Position Yes Yes Yes -Correct Procedure Yes Yes Yes -Procedure Performed Yes Yes Yes -Type of Procedure Debridement Debridement Debridement -Clinical Debridement Subcutaneous Subcutaneous Subcutaneous -Post Debridement Size (cm) - Length 1.2 0.9 0.5 -Post Debridement Size (cm) - Width 0.5 0.4 1.5 -Post Debridement Size (cm) - Depth 0.1 0.1 0.2 -Total Square Cm 0.60 0.36 0.75 -Wound/Ulcer Outcome Not Healed Not Healed Not Healed -Ulcer Cleansing Rinsed/ Rinsed/ Rinsed/ Irrigated with Irrigated with Irrigated with Saline Saline Saline -Foul Odor after Cleansing No No No -Bioengineered Tissue No No No -Bleeding Controlled with Pressure Pressure Pressure -Treatment Response Procedure Procedure Procedure Tolerated Well Tolerated Well Tolerated Well #1 right medial heel -Time 11:17 11:55 12:33 -Correct Patient Yes Yes Yes -Correct Side, Site, Position Yes Yes Yes -Correct Procedure Yes Yes Yes -Procedure Performed Yes Yes Yes -Type of Procedure Debridement Debridement Debridement -Clinical Debridement Subcutaneous Subcutaneous Subcutaneous -Post Debridement Size (cm) - Length 1.2 1.3 1.4 -Post Debridement Size (cm) - Width 1.8 1.9 1.7 -Post Debridement Size (cm) - Depth 0.1 0.1 0.2 -Total Square Cm 2.16 2.47 2.38 -Wound/Ulcer Outcome Not Healed Not Healed Not Healed -Ulcer Cleansing Rinsed/ Rinsed/ Rinsed/ Irrigated with Irrigated with Irrigated with Saline Saline Saline -Foul Odor after Cleansing No No No -Bioengineered Tissue No No No -Bleeding Controlled with Pressure Pressure Pressure -Treatment Response Procedure Procedure Procedure Tolerated Well Tolerated Well Tolerated Well Pain Scale: 0-10 Numeric Is Patient Pain Free? Yes Yes Yes Wound debrided: heel Laterality: Right Wound Grade/Stage: grade 3 Type of Debridement: Excisional debridement Anesthesia Used: 4% Lidocaine Solution Depth: in the subcutaneous layer Percentage of wound debrided: 100 Instrument Used: #15 blade Tissue Removed: fibrous, devitalized subcutaneous, biofilm, slough Severity: Fat Layer Exposed Amount of bleeding with debridement: Mild Bleeding Controlled with: Pressure Patient tolerated procedure well - Additional Wound Wound debrided: anterior ankle Laterality: Right Wound Grade/Stage: grade 1 Type of Debridement: Excisional debridement Anesthesia Used: 4% Lidocaine Solution Depth: in the subcutaneous layer Percentage of wound debrided: 100 Instrument Used: #15 blade Tissue Removed: fibrous, devitalized subcutaneous, biofilm, slough Severity: Fat Layer Exposed Amount of bleeding with debridement: Mild Bleeding Controlled with: Pressure Patient tolerated procedure: Patient tolerated procedure well - Additional Wound Wound debrided: leg cluster Laterality: Right Wound Grade/Stage: grade 1 Type of Debridement: Excisional debridement Anesthesia Used: 4% Lidocaine Solution Depth: in the subcutaneous layer Percentage of wound debrided: - - 15 Instrument Used: #15 blade Tissue Removed: fibrous, devitalized subcutaneous, biofilm, slough Severity: Fat Layer Exposed Amount of bleeding with debridement: Mild Bleeding Controlled with: Pressure Patient tolerated procedure: Patient tolerated procedure well - Additional Wound Wound debrided: dorsal 2 toe Wound Grade/Stage: grade 1 Type of Debridement: Excisional debridement Anesthesia Used: 4% Lidocaine Solution Depth: in the subcutaneous layer Percentage of wound debrided: 100 Instrument Used: #15 blade Tissue Removed: fibrous, devitalized subcutaneous, biofilm, slough Severity: Fat Layer Exposed Amount of bleeding with debridement: Mild Bleeding Controlled with: Pressure Patient tolerated procedure: Patient tolerated procedure well - Additional Wound Wound debrided: distal foot Laterality: Left Wound Grade/Stage: grade 1 Type of Debridement: Excisional debridement Anesthesia Used: 4% Lidocaine Solution Depth: in the subcutaneous layer Percentage of wound debrided: 100 Instrument Used: #15 blade Tissue Removed: fibrous, devitalized subcutaneous, biofilm, slough Severity: Fat Layer Exposed Amount of bleeding with debridement: Mild Bleeding Controlled with: Pressure Patient tolerated procedure: Patient tolerated procedure well - Additional Wound Wound debrided: lateral foot Laterality: Left Wound Grade/Stage: grade 1 Type of Debridement: Excisional debridement Anesthesia Used: 4% Lidocaine Solution Depth: in the subcutaneous layer Percentage of wound debrided: 100 Instrument Used: #15 blade Tissue Removed: fibrous, devitalized subcutaneous, biofilm, slough Severity: Fat Layer Exposed Amount of bleeding with debridement: Mild Bleeding Controlled with: Pressure Patient tolerated procedure: Patient tolerated procedure well Assessment/Plan Assessment: Right heel ulcer with delayed healing lateral left foot ulcer healed. right 2nd toe ulcer returned. 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 right leg ulcers. Right ankle ulcer with delayed healing. Left lateral foot ulcer, new-no infection. left foot ulcer very chronic. lymphedema and continued leg swelling. rule out peripheral vacular disease and venous insufficiency Plan: I discussed his case and treatment plan. Subcutaneous excisional debridement to all bilateral ulcer sites performed today as noted in the clinical panel. He was reassured there are no local signs of infection noted today. He was reassured no infection is noted. It is noted he completed a full course of advanced wound care product, epifix,application. To apply Regranex to the ulcer sites 12 hours at she does get it put I noticed a lot better time when he is able to coordinate this with home health or family assistance. If lack of assistance is noted he can resume only [place] use. . To maintain improved skin integrity by applying lac hydrin lotion to both legs daily. Continue circaid wraps bilateral legs daily; it is okay to apply tubigrip prior to application of CircAid foot wrap to better keep his wound dressings in place. To continue compression pump device daily; he is doing well with this. To proceed as previously advised with his lymphedema follow-up as advised. He is discharged from the [facility] at this time and he is ordering a new foot compression garment that the lymphedema nurse recommended. He will follow-up with her the next time updated compression garments are required in approximately 6 months. To continue diuretic medications per primary care physician.To elevate legs at rest. Compliance is imperative and this was discussed again today. To continue with portion control for weight loss and proper glycemic control and nutritional supplementation to optimize healing. His hemoglobin A1c went from 9.0 to 7.4. I recommended he continues to decrease tension to the anterior right ankle ulcer site by returning to the cam walker boot; to weight-bear as tolerated. His right second toe ulcer site has returned and this is noted and he is reassured there is no infection. To continue strict offloading to all these ulcer sites. To follow-up with vascular surgeon, Dr. Peng, on December 23, 2017 for intervention as advised. All of his questions were answered. He understands he is still at risk for limb loss. Due to the chronicity of the left lower extremity as well I recommend an updated left foot x-ray. The x- rays are reviewed without any gross fractures, dislocation, soft tissue emphysema, foreign body, or definitive osteomyelitis changes. There are some minimal reactive changes at the transmetatarsal amputation stump site. To follow-up at the wound care center in 1 week or call sooner if he has any questions or concerns.
--- NOTE | 2017-12-09 17:31 | PN.PCM_ITS ---
(1) Chronic ulcer of left foot with fat layer exposed Status: Chronic Current Visit: Yes Code(s): L97.522 - Non-pressure chronic ulcer of other part of left foot with fat layer exposed (2) Ulcer of right lower extremity with fat layer exposed Status: Chronic Current Visit: Yes Code(s): L97.912 - Non-pressure chronic ulcer of unspecified part of right lower leg with fat layer exposed (3) Ulcer of right foot with fat layer exposed Status: Chronic Current Visit: Yes Code(s): L97.512 - Non-pressure chronic ulcer of other part of right foot with fat layer exposed (4) Lymphedema Status: Chronic Current Visit: Yes Code(s): I89.0 - Lymphedema, not elsewhere classified (5) Venous insufficiency Status: Chronic Current Visit: Yes Code(s): I87.2 - Venous insufficiency (chronic) (peripheral) (6) Peripheral vascular disease Status: Suspected Current Visit: Yes Code(s): I73.9 - Peripheral vascular disease, unspecified (7) Lower extremity edema Status: Chronic Current Visit: Yes Code(s): R60.0 - Localized edema (8) Type 2 diabetes mellitus with diabetic polyneuropathy Status: Chronic Current Visit: Yes Code(s): E11.42 - Type 2 diabetes mellitus with diabetic polyneuropathy (9) Malnutrition Status: Chronic Current Visit: Yes Code(s): E46 - Unspecified protein- calorie malnutrition Type of Wound Date of Service: 12/09/17 Chief Complaint: Right heel ulcer with delayed healing. 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 left lateral foot ulcer. right leg ulcers. Right ankle ulcer with delayed healing. lymphedema and continued leg swelling History of Wound: 62 year old male was seen for right heel ulcer with chronic osteomyelitis, left foot ulcers (two), and right ankle ulcer, leg ulcers and right toe ulcer. He denies fever, chill, nausea, vomiting. He has Regranex at home and home health has been helping when he has help available with the dressing changes. He uses the compession pump 2-3 times a day with significant edema reduction. He has been scheduled for a vascular invasive intervention with Dr. Peng. He has been following up with the lymphedema clinic as advised and I reviewed his progress note. He denies redness or odor. His initial vascular procedure is scheduled for December 23, 2017. Progress of Wound: Some sites are improving some are stable still - Physical Exam Vital Signs Temp Pulse Resp BP 97.2 F L 50 L 18 162/69 H 12/02/17 11:47 12/02/17 11:47 12/02/17 11:47 12/02/17 11:47 General: Alert, Oriented x3, Cooperative Extremities: No cyanosis, Capillary Refill Less than 3 Seconds, No Calf Tenderness - Negative Keara and Simmons sign bilateral, Diminished Peripheral Pulses, Edema - Bilateral lower extremity Skin: Ulcer/ Wound - No purulence, no erythema, streaking, no odor, no acute signs of infection bilateral. The peripheral skin is hairless and atrophic bilateral Wound Measurements and Assessment WC - Nurse 2 - General Ulcer CM Notes Start: 11/18/17 10:52 Freq: Status: Active Protocol: Activity Type Activity Date Activity User E-Sign Co-Sign Detail Recorded Client Recorded Date Recorded By Document 12/09/17 14:23 [id number] 12/09/17 14:39 12/09/17 14:23 Wound Center Nurse 2 [Procedure/Treatment] #15-LEFT LATERAL FOOT -Time 14:26 -Correct Patient Yes -Correct Side, Site, Position Yes -Correct Procedure Yes -Procedure Performed Yes -Type of Procedure Debridement -Clinical Debridement Subcutaneous -Post Debridement Size (cm) - Length 0.6 -Post Debridement Size (cm) - Width 0.5 -Post Debridement Size (cm) - Depth 0.1 -Total Square Cm 0.30 -Wound/Ulcer Outcome Not Healed -Ulcer Cleansing Rinsed/ Irrigated with Saline -Foul Odor after Cleansing No -Bioengineered Tissue No -Topical Lidocaine (%) 4 -Bleeding Controlled with Pressure -Treatment Response Procedure Tolerated Well #16- RT LOWER BERNSTEIN CLUSTER -Time 14:27 -Correct Patient Yes -Correct Side, Site, Position Yes -Correct Procedure Yes -Procedure Performed Yes -Type of Procedure Debridement -Clinical Debridement Subcutaneous -Post Debridement Size (cm) - Length 3.1 -Post Debridement Size (cm) - Width 2.6 -Post Debridement Size (cm) - Depth 0.1 -Total Square Cm 8.06 -Wound/Ulcer Outcome Not Healed -Ulcer Cleansing Rinsed/ Irrigated with Saline -Foul Odor after Cleansing No -Bioengineered Tissue No -Topical Lidocaine (%) 4 -Bleeding Controlled with Pressure -Treatment Response Procedure Tolerated Well #17-right 2nd toe -Time 14:27 -Correct Patient Yes -Correct Side, Site, Position Yes -Correct Procedure Yes -Procedure Performed Yes -Post Debridement Size (cm) - Length 0.3 -Post Debridement Size (cm) - Width 0.7 -Post Debridement Size (cm) - Depth 0.1 -Total Square Cm 0.21 -Wound/Ulcer Outcome Not Healed -Ulcer Cleansing Rinsed/ Irrigated with Saline -Foul Odor after Cleansing No -Bioengineered Tissue No -Topical Lidocaine (%) 4 -Bleeding Controlled with Pressure -Treatment Response Procedure Tolerated Well #10 RIGHT ANKLE- ANTERIOR -Time 14:29 -Correct Patient Yes -Correct Side, Site, Position Yes -Correct Procedure Yes -Procedure Performed Yes -Post Debridement Size (cm) - Length 0 -Post Debridement Size (cm) - Width 0 -Post Debridement Size (cm) - Depth 0 -Total Square Cm 0 -Wound/Ulcer Outcome Healed- Epithelialized -Ulcer Cleansing Rinsed/ Irrigated with Saline -Foul Odor after Cleansing No -Bioengineered Tissue No -Topical Lidocaine (%) 4 -Bleeding Controlled with Pressure -Treatment Response Procedure Tolerated Well #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 -Time 14:29 -Correct Patient Yes -Correct Side, Site, Position Yes -Correct Procedure Yes -Procedure Performed Yes -Type of Procedure Debridement -Clinical Debridement Subcutaneous -Post Debridement Size (cm) - Length 9.1 -Post Debridement Size (cm) - Width 8.6 -Post Debridement Size (cm) - Depth 0.1 -Total Square Cm 78.26 -Wound/Ulcer Outcome Not Healed -Ulcer Cleansing Rinsed/ Irrigated with Saline -Foul Odor after Cleansing No -Bioengineered Tissue No -Topical Lidocaine (%) 4 -Bleeding Controlled with Pressure -Treatment Response Procedure Tolerated Well #4 Left central TMA -Time 14:29 -Correct Patient Yes -Correct Side, Site, Position Yes -Correct Procedure Yes -Procedure Performed Yes -Type of Procedure Debridement -Clinical Debridement Subcutaneous -Post Debridement Size (cm) - Length 0.6 -Post Debridement Size (cm) - Width 1.5 -Post Debridement Size (cm) - Depth 0.2 -Total Square Cm 0.90 -Wound/Ulcer Outcome Not Healed -Ulcer Cleansing Rinsed/ Irrigated with Saline -Foul Odor after Cleansing No -Bioengineered Tissue No -Topical Lidocaine (%) 4 -Bleeding Controlled with Pressure -Treatment Response Procedure Tolerated Well #1 right medial heel -Time 14:30 -Correct Patient Yes -Correct Side, Site, Position Yes -Correct Procedure Yes -Procedure Performed Yes -Type of Procedure Debridement -Clinical Debridement Subcutaneous -Post Debridement Size (cm) - Length 1.4 -Post Debridement Size (cm) - Width 1.8 -Post Debridement Size (cm) - Depth 0.2 -Total Square Cm 2.52 -Wound/Ulcer Outcome Not Healed -Ulcer Cleansing Rinsed/ Irrigated with Saline -Foul Odor after Cleansing No -Bioengineered Tissue No -Topical Lidocaine (%) 4 -Bleeding Controlled with Pressure -Treatment Response Procedure Tolerated Well [See Physician Procedure note for Specifics] Pain Scale: 0-10 Numeric [Pain] -Is Patient Pain Free? Yes Musculoskeletal: No Tenderness to Palpation of Joints or Extremities, Muscle Wasting, - - Right hallux amputation left transmetatarsal amputation Neurological: - - Lack of epicritic sensation light touch bilateral lower extremity consistent with neuropathy Psych/Mental Status: Normal Affect, Appropriate Debridement Note Post-Debridement Measurements/Treatment WC - Nurse 2 - General Ulcer CM Notes Start: 11/18/17 10:52 Freq: Status: Active Protocol: Activity Type Activity Date Activity User E-Sign Co-Sign Detail Recorded Client Recorded Date Recorded By Document 11/18/17 11:15 [id number] 11/18/17 11:17 Document 11/25/17 11:53 [id number] 11/25/17 11:57 Document 12/02/17 12:31 [id number] 12/02/17 12:34 Document 12/09/17 14:23 [id number] 12/09/17 14:39 11/18/17 11/25/17 12/02/17 11:15 11:53 12:31 Wound Center Nurse 2 #15-LEFT LATERAL FOOT -Time 11:16 11:53 12:31 -Correct Patient Yes Yes Yes -Correct Side, Site, Position Yes Yes Yes -Correct Procedure Yes Yes Yes -Procedure Performed Yes Yes Yes -Type of Procedure Debridement Debridement Debridement -Clinical Debridement Subcutaneous Subcutaneous Subcutaneous -Post Debridement Size (cm) - Length 0.3 0.5 0.5 -Post Debridement Size (cm) - Width 0.4 0.6 0.5 -Post Debridement Size (cm) - Depth 0.1 0.1 0.1 -Total Square Cm 0.12 0.30 0.25 -Wound/Ulcer Outcome Not Healed Not Healed Not Healed -Ulcer Cleansing Rinsed/ Rinsed/ Rinsed/ Irrigated with Irrigated with Irrigated with Saline Saline Saline -Foul Odor after Cleansing No No No -Bioengineered Tissue No No No -Topical Lidocaine (%) -Bleeding Controlled with Pressure Pressure Pressure -Treatment Response Procedure Procedure Procedure Tolerated Well Tolerated Well Tolerated Well #16- RT LOWER BERNSTEIN CLUSTER -Time 11:16 11:53 12:32 -Correct Patient Yes Yes Yes -Correct Side, Site, Position Yes Yes Yes -Correct Procedure Yes Yes Yes -Procedure Performed Yes Yes Yes -Type of Procedure Debridement Debridement Debridement -Clinical Debridement Subcutaneous Subcutaneous Subcutaneous -Post Debridement Size (cm) - Length 0.2 8.5 3 -Post Debridement Size (cm) - Width 0.2 3.3 2.6 -Post Debridement Size (cm) - Depth 0.1 0.1 0.1 -Total Square Cm 0.04 28.05 7.8 -Wound/Ulcer Outcome Not Healed Not Healed Not Healed -Ulcer Cleansing Rinsed/ Rinsed/ Rinsed/ Irrigated with Irrigated with Irrigated with Saline Saline Saline -Foul Odor after Cleansing No No No -Bioengineered Tissue No No No -Topical Lidocaine (%) -Bleeding Controlled with Pressure Pressure Pressure -Treatment Response Procedure Procedure Procedure Tolerated Well Tolerated Well Tolerated Well #17-right 2nd toe -Time 12:35 -Correct Patient Yes -Correct Side, Site, Position Yes -Correct Procedure Yes -Procedure Performed Yes -Type of Procedure Debridement -Clinical Debridement Subcutaneous -Post Debridement Size (cm) - Length 0.4 -Post Debridement Size (cm) - Width 0.6 -Post Debridement Size (cm) - Depth 0.1 -Total Square Cm 0.24 -Wound/Ulcer Outcome Not Healed -Ulcer Cleansing Rinsed/ Irrigated with Saline -Foul Odor after Cleansing No -Bioengineered Tissue No -Topical Lidocaine (%) -Bleeding Controlled with Pressure -Treatment Response Procedure Tolerated Well #10 RIGHT ANKLE- ANTERIOR -Time 11:16 11:54 12:32 -Correct Patient Yes Yes Yes -Correct Side, Site, Position Yes Yes Yes -Correct Procedure Yes Yes Yes -Procedure Performed Yes Yes Yes -Type of Procedure Debridement Debridement Debridement -Clinical Debridement Subcutaneous Subcutaneous Subcutaneous -Post Debridement Size (cm) - Length 1 0.8 0.4 -Post Debridement Size (cm) - Width 1.6 1.8 1.5 -Post Debridement Size (cm) - Depth 0.1 0.1 0.1 -Total Square Cm 1.6 1.44 0.60 -Wound/Ulcer Outcome Not Healed Not Healed Not Healed -Ulcer Cleansing Rinsed/ Rinsed/ Rinsed/ Irrigated with Irrigated with Irrigated with Saline Saline Saline -Foul Odor after Cleansing No No No -Bioengineered Tissue No No No -Topical Lidocaine (%) -Bleeding Controlled with Pressure Pressure Pressure -Treatment Response Procedure Procedure Procedure Tolerated Well Tolerated Well Tolerated Well #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 -Time 11:16 11:54 12:32 -Correct Patient Yes Yes Yes -Correct Side, Site, Position Yes Yes Yes -Correct Procedure Yes Yes Yes -Procedure Performed Yes Yes Yes -Type of Procedure Debridement Debridement Debridement -Clinical Debridement Subcutaneous Subcutaneous Subcutaneous -Post Debridement Size (cm) - Length 7 0.2 9 -Post Debridement Size (cm) - Width 8.1 0.2 8.6 -Post Debridement Size (cm) - Depth 0.1 0.1 0.1 -Total Square Cm 56.7 0.04 77.4 -Wound/Ulcer Outcome Not Healed Not Healed Not Healed -Ulcer Cleansing Rinsed/ Rinsed/ Rinsed/ Irrigated with Irrigated with Irrigated with Saline Saline Saline -Foul Odor after Cleansing No No No -Bioengineered Tissue No No No -Topical Lidocaine (%) -Bleeding Controlled with Pressure Pressure Pressure -Treatment Response Procedure Procedure Procedure Tolerated Well Tolerated Well Tolerated Well #4 Left central TMA -Time 11:17 11:54 12:33 -Correct Patient Yes Yes Yes -Correct Side, Site, Position Yes Yes Yes -Correct Procedure Yes Yes Yes -Procedure Performed Yes Yes Yes -Type of Procedure Debridement Debridement Debridement -Clinical Debridement Subcutaneous Subcutaneous Subcutaneous -Post Debridement Size (cm) - Length 1.2 0.9 0.5 -Post Debridement Size (cm) - Width 0.5 0.4 1.5 -Post Debridement Size (cm) - Depth 0.1 0.1 0.2 -Total Square Cm 0.60 0.36 0.75 -Wound/Ulcer Outcome Not Healed Not Healed Not Healed -Ulcer Cleansing Rinsed/ Rinsed/ Rinsed/ Irrigated with Irrigated with Irrigated with Saline Saline Saline -Foul Odor after Cleansing No No No -Bioengineered Tissue No No No -Topical Lidocaine (%) -Bleeding Controlled with Pressure Pressure Pressure -Treatment Response Procedure Procedure Procedure Tolerated Well Tolerated Well Tolerated Well #1 right medial heel -Time 11:17 11:55 12:33 -Correct Patient Yes Yes Yes -Correct Side, Site, Position Yes Yes Yes -Correct Procedure Yes Yes Yes -Procedure Performed Yes Yes Yes -Type of Procedure Debridement Debridement Debridement -Clinical Debridement Subcutaneous Subcutaneous Subcutaneous -Post Debridement Size (cm) - Length 1.2 1.3 1.4 -Post Debridement Size (cm) - Width 1.8 1.9 1.7 -Post Debridement Size (cm) - Depth 0.1 0.1 0.2 -Total Square Cm 2.16 2.47 2.38 -Wound/Ulcer Outcome Not Healed Not Healed Not Healed -Ulcer Cleansing Rinsed/ Rinsed/ Rinsed/ Irrigated with Irrigated with Irrigated with Saline Saline Saline -Foul Odor after Cleansing No No No -Bioengineered Tissue No No No -Topical Lidocaine (%) -Bleeding Controlled with Pressure Pressure Pressure -Treatment Response Procedure Procedure Procedure Tolerated Well Tolerated Well Tolerated Well Pain Scale: 0-10 Numeric Is Patient Pain Free? Yes Yes Yes 12/09/17 14:23 Wound Center Nurse 2 #15-LEFT LATERAL FOOT -Time 14:26 -Correct Patient Yes -Correct Side, Site, Position Yes -Correct Procedure Yes -Procedure Performed Yes -Type of Procedure Debridement -Clinical Debridement Subcutaneous -Post Debridement Size (cm) - Length 0.6 -Post Debridement Size (cm) - Width 0.5 -Post Debridement Size (cm) - Depth 0.1 -Total Square Cm 0.30 -Wound/Ulcer Outcome Not Healed -Ulcer Cleansing Rinsed/ Irrigated with Saline -Foul Odor after Cleansing No -Bioengineered Tissue No -Topical Lidocaine (%) 4 -Bleeding Controlled with Pressure -Treatment Response Procedure Tolerated Well #16- RT LOWER BERNSTEIN CLUSTER -Time 14:27 -Correct Patient Yes -Correct Side, Site, Position Yes -Correct Procedure Yes -Procedure Performed Yes -Type of Procedure Debridement -Clinical Debridement Subcutaneous -Post Debridement Size (cm) - Length 3.1 -Post Debridement Size (cm) - Width 2.6 -Post Debridement Size (cm) - Depth 0.1 -Total Square Cm 8.06 -Wound/Ulcer Outcome Not Healed -Ulcer Cleansing Rinsed/ Irrigated with Saline -Foul Odor after Cleansing No -Bioengineered Tissue No -Topical Lidocaine (%) 4 -Bleeding Controlled with Pressure -Treatment Response Procedure Tolerated Well #17-right 2nd toe -Time 14:27 -Correct Patient Yes -Correct Side, Site, Position Yes -Correct Procedure Yes -Procedure Performed Yes -Type of Procedure -Clinical Debridement -Post Debridement Size (cm) - Length 0.3 -Post Debridement Size (cm) - Width 0.7 -Post Debridement Size (cm) - Depth 0.1 -Total Square Cm 0.21 -Wound/Ulcer Outcome Not Healed -Ulcer Cleansing Rinsed/ Irrigated with Saline -Foul Odor after Cleansing No -Bioengineered Tissue No -Topical Lidocaine (%) 4 -Bleeding Controlled with Pressure -Treatment Response Procedure Tolerated Well #10 RIGHT ANKLE- ANTERIOR -Time 14:29 -Correct Patient Yes -Correct Side, Site, Position Yes -Correct Procedure Yes -Procedure Performed Yes -Type of Procedure -Clinical Debridement -Post Debridement Size (cm) - Length 0 -Post Debridement Size (cm) - Width 0 -Post Debridement Size (cm) - Depth 0 -Total Square Cm 0 -Wound/Ulcer Outcome Healed- Epithelialized -Ulcer Cleansing Rinsed/ Irrigated with Saline -Foul Odor after Cleansing No -Bioengineered Tissue No -Topical Lidocaine (%) 4 -Bleeding Controlled with Pressure -Treatment Response Procedure Tolerated Well #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 -Time 14:29 -Correct Patient Yes -Correct Side, Site, Position Yes -Correct Procedure Yes -Procedure Performed Yes -Type of Procedure Debridement -Clinical Debridement Subcutaneous -Post Debridement Size (cm) - Length 9.1 -Post Debridement Size (cm) - Width 8.6 -Post Debridement Size (cm) - Depth 0.1 -Total Square Cm 78.26 -Wound/Ulcer Outcome Not Healed -Ulcer Cleansing Rinsed/ Irrigated with Saline -Foul Odor after Cleansing No -Bioengineered Tissue No -Topical Lidocaine (%) 4 -Bleeding Controlled with Pressure -Treatment Response Procedure Tolerated Well #4 Left central TMA -Time 14:29 -Correct Patient Yes -Correct Side, Site, Position Yes -Correct Procedure Yes -Procedure Performed Yes -Type of Procedure Debridement -Clinical Debridement Subcutaneous -Post Debridement Size (cm) - Length 0.6 -Post Debridement Size (cm) - Width 1.5 -Post Debridement Size (cm) - Depth 0.2 -Total Square Cm 0.90 -Wound/Ulcer Outcome Not Healed -Ulcer Cleansing Rinsed/ Irrigated with Saline -Foul Odor after Cleansing No -Bioengineered Tissue No -Topical Lidocaine (%) 4 -Bleeding Controlled with Pressure -Treatment Response Procedure Tolerated Well #1 right medial heel -Time 14:30 -Correct Patient Yes -Correct Side, Site, Position Yes -Correct Procedure Yes -Procedure Performed Yes -Type of Procedure Debridement -Clinical Debridement Subcutaneous -Post Debridement Size (cm) - Length 1.4 -Post Debridement Size (cm) - Width 1.8 -Post Debridement Size (cm) - Depth 0.2 -Total Square Cm 2.52 -Wound/Ulcer Outcome Not Healed -Ulcer Cleansing Rinsed/ Irrigated with Saline -Foul Odor after Cleansing No -Bioengineered Tissue No -Topical Lidocaine (%) 4 -Bleeding Controlled with Pressure -Treatment Response Procedure Tolerated Well Pain Scale: 0-10 Numeric Is Patient Pain Free? Yes Wound debrided: medial heel Laterality: Right Wound Grade/Stage: grade 3 Type of Debridement: Excisional debridement Anesthesia Used: 4% Lidocaine Solution Depth: in the subcutaneous layer Percentage of wound debrided: 100 Instrument Used: #15 blade Tissue Removed: fibrous, devitalized subcutaneous, biofilm, slough Severity: Fat Layer Exposed Amount of bleeding with debridement: Mild Bleeding Controlled with: Pressure Patient tolerated procedure well predebridement: 1.3 x 1.7 x 0.2 cm - Additional Wound Wound debrided: ankle Laterality: Right Wound Grade/Stage: grade 1 Type of Debridement: Excisional debridement Anesthesia Used: 4% Lidocaine Solution Operative Diagnosis: not debrided- healed today - Additional Wound Wound debrided: leg cluster Laterality: Right Wound Grade/Stage: grade 1 Type of Debridement: Excisional debridement, - - Pre-debridement; 9.0 x 8.5 x 0.1 cm Anesthesia Used: 4% Lidocaine Solution Depth: in the subcutaneous layer Percentage of wound debrided: 10 Instrument Used: #15 blade Tissue Removed: fibrous, devitalized subcutaneous, biofilm, slough Severity: Fat Layer Exposed Amount of bleeding with debridement: Mild Bleeding Controlled with: Pressure Patient tolerated procedure: Patient tolerated procedure well - Additional Wound Wound debrided: 2nd toe Wound Grade/Stage: grade 1 Type of Debridement: Excisional debridement, - - Pre-debridement 0.2 x 0.6 x 0.1 cm Anesthesia Used: 4% Lidocaine Solution Depth: in the subcutaneous layer Percentage of wound debrided: 100 Instrument Used: #15 blade Tissue Removed: fibrous, devitalized subcutaneous, biofilm, slough Severity: Fat Layer Exposed Amount of bleeding with debridement: Mild Bleeding Controlled with: Pressure Patient tolerated procedure: Patient tolerated procedure well - Additional Wound Wound debrided: lateral foot Laterality: Left Wound Grade/Stage: grade 1 Type of Debridement: Excisional debridement, - - Pre-debridement 0.5 x 0.4 x 0.1 cm Anesthesia Used: 4% Lidocaine Solution Depth: in the subcutaneous layer Percentage of wound debrided: 100 Instrument Used: #15 blade Tissue Removed: fibrous, devitalized subcutaneous, biofilm, slough Severity: Fat Layer Exposed Amount of bleeding with debridement: Mild Bleeding Controlled with: Pressure Patient tolerated procedure: Patient tolerated procedure well - Additional Wound Wound debrided: bernstein Laterality: Left Wound Grade/Stage: grade 1 Type of Debridement: Excisional debridement, - - 3.0 x 2.5 x 0.1 cm pre- debridement Anesthesia Used: 4% Lidocaine Solution Depth: in the subcutaneous layer Percentage of wound debrided: 100 Instrument Used: #15 blade Tissue Removed: fibrous, devitalized subcutaneous, biofilm, slough Severity: Fat Layer Exposed Amount of bleeding with debridement: Mild Bleeding Controlled with: Pressure Patient tolerated procedure: Patient tolerated procedure well - Additional Wound Wound debrided: central foot Laterality: Left Wound Grade/Stage: grade 1 Type of Debridement: Excisional debridement, - - Pre-debridement 0.5 x 1.4 x 0.2 cm Anesthesia Used: 4% Lidocaine Solution Depth: in the subcutaneous layer Percentage of wound debrided: 100 Instrument Used: #15 blade Tissue Removed: fibrous, devitalized subcutaneous, biofilm, slough Severity: Fat Layer Exposed Amount of bleeding with debridement: Mild Bleeding Controlled with: Pressure Patient tolerated procedure: Patient tolerated procedure well Assessment/Plan Active Problems Lymphedema (Chronic) Venous insufficiency (Chronic) Ulcer of right foot with fat layer exposed (Chronic) Chronic ulcer of left foot with fat layer exposed (Chronic) Lower extremity edema (Chronic) Type 2 diabetes mellitus with diabetic polyneuropathy (Chronic) Ulcer of right lower extremity with fat layer exposed (Chronic) Malnutrition (Chronic) Assessment: Right heel ulcer with delayed healing lateral left foot ulcer healed. right 2nd toe ulcer returned. 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 right leg ulcers. Right ankle ulcer with delayed healing. Left lateral foot ulcer, new-no infection. left foot ulcer very chronic. lymphedema and continued leg swelling. rule out peripheral vacular disease and venous insufficiency Plan: I discussed his case and treatment plan. Subcutaneous excisional debr idement to all bilateral ulcer sites performed today as noted in the clinical panel. He was reassured there are no local signs of infection noted today. He was reassured no infection is noted. It is noted he completed a full course of advanced wound care product, epifix,application. To apply Regranex to the ulcer sites 12 hours at she does get it put I noticed a lot better time when he is able to coordinate this with home health or family assistance. If lack of assistance is noted he can resume only Elda use. . To maintain improved skin integrity by applying lac hydrin lotion to both legs daily. Continue circaid wraps bilateral legs daily; it is okay to apply tubigrip prior to application of CircAid foot wrap to better keep his wound dressings in place. To continue compression pump device daily; he is doing well with this. To proceed as previously advised with his lymphedema follow-up as advised. He is [facility] from the [facility] at this time and he is ordering a new foot compression garment that the lymphedema nurse recommended. He will follow-up with her the next time updated compression garments are required in approximately 6 months. To continue diuretic medications per primary care physician.To elevate legs at rest. Compliance is imperative and this was discussed again today. To continue with portion control for weight loss and proper glycemic control and nutritional supplementation to optimize healing. His hemoglobin A1c went from 9.0 to 7.4. I recommended he continues to decrease tension to the anterior right ankle ulcer site by returning to the cam walker boot; to weight-bear as tolerated. His right second toe ulcer site has returned and this is noted and he is reassured there is no infection. To continue strict offloading to all these ulcer sites. To follow-up with vascular surgeon, Dr. Peng, on December 23, 2017 for intervention as advised. All of his questions were answered. He understands he is still at risk for limb loss. Due to the chronicity of the left lower extremity as well I recommend an updated left foot x-ray. The x-rays are reviewed without any gross fractures, dislocation, soft tissue emphysema, foreign body, or definitive osteomyelitis changes. There are some minimal reactive changes at the transmetatarsal amputation stump site. To follow-up at the wound care center in 1 week or call sooner if he has any questions or concerns.
== END 2017-12-13 23:59 ==
LOC: WC 13:30
PROVIDERS: Family Provider Family Medicine; PCP Family Medicine; Visit Provider Podiatrist
DX: E11.622 Type 2 diabetes mellitus with other skin ulcer (principal); E11.621 Type 2 diabetes mellitus with foot ulcer; I89.0 Lymphedema, not elsewhere classified; E11.51 Type 2 diabetes mellitus with diabetic peripheral angiopathy without gangrene; R60.0 Localized edema; E11.42 Type 2 diabetes mellitus with diabetic polyneuropathy; L97.412 Non-pressure chronic ulcer of right heel and midfoot with fat layer exposed; L97.312 Non-pressure chronic ulcer of right ankle with fat layer exposed; L97.812 Non-pressure chronic ulcer of other part of right lower leg with fat layer exposed; L97.522 Non-pressure chronic ulcer of other part of left foot with fat layer exposed
CPT/HCPCS: 11042; 11045

== ENCOUNTER 2017-12-23 09:19 | Day surgery (SDC) | payer MEDICARE, MEDICAID, SELFPAY ==
[2017-12-22 10:48] VITALS: BMI 53.1
[2017-12-23 09:38] LABS: Hematocrit 42.2 % (40-54); Hemoglobin 13.3 g/dl (13.0-16.5); Mean Corp Hgb Conc 31.5 g/gl (32-36); Mean Corpuscular Hgb 27.2 pg (27.0-32.0); Mean Corpuscular Volume 86.3 fL (80-94); Mean Platelet Vol. 10.1 fl (6.2-12.0); Platelet Count 193 K/mm3 (150-450); RBC Distribution Width CV 13.9 % (11.6-14.6); RBC Distribution Width SD 43.8 fl (35.1-43.9); Red Blood Count 4.89 M/mm3 (4.6-6.2); White Blood Count 7.8 K/mm3 (4.4-11.0)
[2017-12-23 09:39] LABS: Scan Indicated on CBC? Y/N NO
[2017-12-23 10:01] LABS: Anion Gap 6 (5-15); BUN 37 mg/dL (7-18); BUN/Creat Ratio 26.6 RATIO (10-20); Calcium,Total 9.2 mg/dL (8.5-10.1); Chloride 105 mmol/L (98-107); Creatinine, Serum 1.39 mg/dL (0.70-1.30); EST Glomerular Filtration Rate 55 mL/min (>60); Est Glom Filt Rate - Afr Amer 67 mL/min (>60); Estimated Creatinine Clearance 67.65 ml/min; Glucose 169 mg/dL (74-106); Potassium 5.1 mmol/L (3.5-5.1); Sodium Level 135 mmol/L (136-145)
--- NOTE | 2017-12-23 11:15 | PCM.OP.BLANK ---
Problem List (1) Peripheral vascular disease Status: Suspected Operative Report Date of Procedure: 12/23/17 Patient: Jair Crane Preoperative diagnosis nonhealing ulcer left foot Postoperative diagnosis: The same Procedure: 1. Ultrasound-guided access retrograde right common femoral artery. 2. Left lower extremity angiogram with catheter placed into the third order cannulation on the left leg. 3. Closure with Star close. Indication: 62-year-old gentleman difficult to get a great arterial study on him at some calcifications noted in nonhealing wound. Discussed we do an angiogram to see if there is anything we can do to help with the perfusion. Risk benefits alternatives discussed she agreed to proceed Procedure: Patient brought to the Orthopedic Technician. Underwent sedation. Was prepped and draped in a sterile fashion. We did ultrasound-guided access retrograde right common femoral artery. Put a Glidewire up and get up and over the bifurcation. We switched to a quick cross catheter. An image from the left external iliac artery showing that the left common femoral profunda SFA widely patent. Brought the catheter down to the adductor canal and image from there showing the popliteal artery was patent all the way through. We then put the catheter to the below-knee popliteal and image from there showing all 3 tibials down to the ankle. We then did a lateral view in all the vessels are patent into the ankle with the anterior tib patent into the DP and the posterior tibial patent into the plantars filling the foot. There is no significant stenosis noted throughout. Patient had been given 5000 units of heparin. We then closed with a Star close and he was brought to recovery in stable condition. Sedation: This 62-year-old gentleman underwent moderate sedation given by Dr. Dario Peng. He was given fentanyl and Versed. He was monitored with EKG blood pressure and pulse ox. He tolerated the procedure well. See the EMR for the complete record
--- NOTE | 2017-12-23 11:20 | OP.PCM_ITS ---
Problem List (1) Peripheral vascular disease Status: Suspected Operative Report Date of Procedure: 12/23/17 Patient: Jair Crane Preoperative diagnosis nonhealing ulcer left foot Postoperative diagnosis: The same Procedure: 1. Ultrasound-guided access retrograde right common femoral artery. 2. Left lower extremity angiogram with catheter placed into the third order cannulation on the left leg. 3. Closure with Star close. Indication: 62-year-old gentleman difficult to get a great arterial study on him at some calcifications noted in nonhealing wound. Discussed we do an angiogram to see if there is anything we can do to help with the perfusion. Risk benefits alternatives discussed she agreed to proceed Procedure: Patient brought to the [employer] [facility] Director. Underwent sedation. Was prepped and draped in a sterile fashion. We did ultrasound-guided access retrograde right common fe moral artery. Put a Glidewire up and get up and over the bifurcation. We switched to a quick cross catheter. An image from the left external iliac artery showing that the left common femoral profunda SFA widely patent. Brought the catheter down to the adductor canal and image from there showing the popliteal artery was patent all the way through. We then put the catheter to the below-knee popliteal and image from there showing all 3 tibials down to the ankle. We then did a lateral view in all the vessels are patent into the ankle with the anterior tib patent into the DP and the posterior tibial patent into the plantars filling the foot. There is no significant stenosis noted throughout. Patient had been given 5000 units of heparin. We then closed with a Star close and he was brought to recovery in stable condition. Sedation: This 62-year-old gentleman underwent moderate sedation given by Dr. Dario Peng. He was given fentanyl and Versed. He was monitored with EKG blood pre ssure and pulse ox. He tolerated the procedure well. See the EMR for the complete record
== END 2017-12-23 15:35 | disposition home or self-care (01) ==
LOC: CLSP 09:20
PROVIDERS: Family Provider Family Medicine; PCP Family Medicine; Referring Provider Surgery Vascular Surgery; Visit Provider Surgery Vascular Surgery
DX: I70.245 Atherosclerosis of native arteries of left leg with ulceration of other part of foot (principal); I89.0 Lymphedema, not elsewhere classified; I10 Essential (primary) hypertension; E11.621 Type 2 diabetes mellitus with foot ulcer; L97.529 Non-pressure chronic ulcer of other part of left foot with unspecified severity; Z79.4 Long term (current) use of insulin; F10.20 Alcohol dependence, uncomplicated; Z79.82 Long term (current) use of aspirin; Z79.899 Other long term (current) drug therapy
CPT/HCPCS: 36245; 36415; 75710; 76937; 80048; 85027; 99152; 99153; J7040; Q9967; C1760; C1769; C1887

== ENCOUNTER 2018-01-13 11:00 | Outpatient (RCR) | payer MEDICARE, MEDICAID, SELFPAY ==
[2017-12-14 00:37] VITALS: BP 162/69; PULSE 50; RESP 18; TEMP 36.2
[2017-12-16 13:53] VITALS: BP 152/77; PULSE 48; RESP 18; TEMP 36
--- NOTE | 2017-12-16 17:03 | PN.PCM_ITS ---
(1) Chronic ulcer of left foot with fat layer exposed Status: Chronic Code(s): L97.522 - Non-pressure chronic ulcer of other part of left foot with fat layer exposed (2) Ulcer of right foot with fat layer exposed Status: Chronic Code(s): L97.512 - Non-pressure chronic ulcer of other part of right foot with fat layer exposed (3) Lymphedema Status: Chronic Code(s): I89.0 - Lymphedema, not elsewhere classified (4) Venous insufficiency Status: Chronic Code(s): I87.2 - Venous insufficiency (chronic) (peripheral) (5) Peripheral vascular disease Status: Suspected Code(s): I73.9 - Peripheral vascular disease, unspecified (6) Obesity Status: Acute Code(s): E66.9 - Obesity, unspecified (7) Type 2 diabetes mellitus with diabetic polyneuropathy Status: Chronic Code(s): E11.42 - Type 2 diabetes mellitus with diabetic polyneuropathy (8) Malnutrition Status: Chronic Code(s): E46 - Unspecified protein-calorie malnutrition Type of Wound Date of Service: 12/16/17 Chief Complaint: Right heel ulcer with delayed healing. 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 left lateral foot ulcer. right leg ulcers. right toe ulcer. lymphedema and continued leg swelling History of Wound: 62 year old male was seen for right heel ulcer with chronic osteomyelitis, left foot ulcers (two), and right ankle ulcer, leg ulcers and right toe ulcer. He denies fever, chill, nausea, vomiting. He has Regranex at home and home health has been helping when he has help available with the dressing changes. He uses the compession pump 2-3 times a day with significant edema reduction. He has been scheduled for a vascular invasive intervention with Dr. Peng next week. He has been following up with the lymphedema clinic as advised and I reviewed his progress note. He denies redness or odor. His initial vascular procedure is scheduled for December 23, 2017. Progress of Wound: improving - Physical Exam Vital Signs Temp Pulse Resp BP 96.8 F L 48 L 18 152/77 H 12/16/17 13:53 12/16/17 13:53 12/16/17 13:53 12/16/17 13:53 General: Alert, Oriented x3, Cooperative Extremities: No cyanosis, Capillary Refill Less than 3 Seconds, No Calf Tenderness - negative liberty and ornelas signs bilateral, Diminished Peripheral Pulses, Edema - controlled bilateral lower extremities Skin: Ulcer/ Wound - no purulence, no erythema, no infection, no streaking noted, no deep tissue exposed bilateral Wound Measurements and Assessment WC - Nurse 1 - General Ulcer Measurement Start: 12/16/17 13:51 Freq: Status: Active Protocol: Activity Type Activity Date Activity User E-Sign Co-Sign Detail Recorded Client Recorded Date Recorded By Document 12/16/17 13:53 [id number] 12/16/17 14:02 12/16/17 13:53 Wound Center Nurse 1 [Ulcer Assessment] #15-LEFT LATERAL FOOT -Current Size (cm) - Length 0.5 -Current Size (cm) - Width 0.4 -Current Size (cm) - Depth 0.2 -Total Square Cm 0.20 -Photo Taken No -Exudate Amt Small (1-33%) -Exudate Type Serosanguineous -Wound Margin Distinct, Outline Attached -Granulation Amt Large (67-100%) -Granulation Quality Red -Necrosis Amt None Present (0 %) -Structure Exposed N/A -Texture (Susy-wound Skin Appearance) Scarring -Moisture (Susy-wound Skin Appearance Dry/Scaly ) -Color (Susy-wound Skin Appearance) Hemosiderin Staining -Temperature (Susy-wound Skin No Abnormality Appearance) (Pt Warm) -Ulcer Cleansing Wound Cleanser -Foul Odor after Cleansing No -Anesthetic Used 4% Lidocaine Solution #16- RT LOWER RUBIN CLUSTER -Current Size (cm) - Length 8 -Current Size (cm) - Width 6 -Current Size (cm) - Depth 0.1 -Total Square Cm 48 -Photo Taken No -Exudate Amt Small (1-33%) -Exudate Type Serosanguineous -Wound Margin Distinct, Outline Attached -Granulation Amt Small (1-33%) -Granulation Quality [place] -Necrosis Amt Small (1-33%) -Necrotic Tissue Type Adherent Slough -Structure Exposed N/A -Texture (Susy-wound Skin Appearance) Scarring -Moisture (Susy-wound Skin Appearance Dry/Scaly ) -Color (Susy-wound Skin Appearance) Hemosiderin Staining Rubor -Temperature (Susy-wound Skin No Abnormality Appearance) (Pt Warm) -Tenderness on Palpation (Susy-wound No Skin Appearance) -Ulcer Cleansing Wound Cleanser -Foul Odor after Cleansing No -Anesthetic Used 4% Lidocaine Solution #17-right 2nd toe -Current Size (cm) - Length 0.1 -Current Size (cm) - Width 0.1 -Current Size (cm) - Depth 0.1 -Total Square Cm 0.01 -Photo Taken No -Exudate Amt None Present (0 %) -Wound Margin Flat & Intact -Granulation Amt None Present (0 %) -Slough/Fibrin Yes -Necrosis Amt Small (1-33%) -Necrotic Tissue Type Adherent Slough -Structure Exposed N/A -Texture (Susy-wound Skin Appearance) Scarring -Moisture (Susy-wound Skin Appearance Dry/Scaly ) -Color (Susy-wound Skin Appearance) Hemosiderin Staining Rubor -Temperature (Susy-wound Skin No Abnormality Appearance) (Pt Warm) -Tenderness on Palpation (Susy-wound No Skin Appearance) -Ulcer Cleansing Wound Cleanser -Foul Odor after Cleansing No -Anesthetic Used 4% Lidocaine Solution #4 Left central TMA -Current Size (cm) - Length 0.6 -Current Size (cm) - Width 0.1 -Current Size (cm) - Depth 0.1 -Total Square Cm 0.06 -Photo Taken No -Exudate Amt None Present (0 %) -Wound Margin Distinct, Outline Attached -Granulation Amt None Present (0 %) -Slough/Fibrin Yes -Necrosis Amt Large (67-100%) -Necrotic Tissue Type Adherent Slough -Structure Exposed N/A -Texture (Susy-wound Skin Appearance) Scarring -Moisture (Susy-wound Skin Appearance Dry/Scaly ) -Color (Susy-wound Skin Appearance) Hemosiderin Staining -Temperature (Susy-wound Skin No Abnormality Appearance) (Pt Warm) -Ulcer Cleansing Wound Cleanser -Foul Odor after Cleansing No -Anesthetic Used 4% Lidocaine Solution #1 right medial heel -Current Size (cm) - Length 1.6 -Current Size (cm) - Width 1 -Current Size (cm) - Depth 0.2 -Total Square Cm 1.6 -Photo Taken No -Exudate Amt Small (1-33%) -Exudate Type Serosanguineous -Wound Margin Thickened -Granulation Amt Large (67-100%) -Granulation Quality [place] -Necrosis Amt Medium (34-66%) -Necrotic Tissue Type Adherent Slough -Structure Exposed N/A -Texture (Susy-wound Skin Appearance) Scarring -Moisture (Susy-wound Skin Appearance Dry/Scaly ) -Color (Susy-wound Skin Appearance) Hemosiderin Staining Rubor -Temperature (Susy-wound Skin No Abnormality Appearance) (Pt Warm) -Ulcer Cleansing Wound Cleanser -Foul Odor after Cleansing No -Anesthetic Used 4% Lidocaine Solution [Edema Assessment] -Right Calf (cm) 47 -Right Ankle (cm) 28.5 -Left Calf (cm) 44.8 -Left Ankle (cm) 28.4 WC - Nurse 2 - General Ulcer CM Notes Start: 12/16/17 13:51 Freq: Status: Active Protocol: Activity Type Activity Date Activity User E-Sign Co-Sign Detail Recorded Client Recorded Date Recorded By Document 12/16/17 14:38 [id number] 12/16/17 14:44 12/16/17 14:38 Wound Center Nurse 2 [Procedure/Treatment] #15-LEFT LATERAL FOOT -Time 14:38 -Correct Patient Yes -Correct Side, Site, Position Yes -Correct Procedure Yes -Procedure Performed Yes -Type of Procedure Debridement -Clinical Debridement Subcutaneous -Post Debridement Size (cm) - Length 0.6 -Post Debridement Size (cm) - Width 0.5 -Post Debridement Size (cm) - Depth 0.2 -Total Square Cm 0.30 -Wound/Ulcer Outcome Not Healed -Ulcer Cleansing Rinsed/ Irrigated with Saline -Foul Odor after Cleansing No -Bioengineered Tissue No -Topical Lidocaine (%) 4 -Bleeding Controlled with Pressure -Treatment Response Procedure Tolerated Well #16- RT LOWER RUBIN CLUSTER -Time 14:41 -Correct Patient Yes -Correct Side, Site, Position Yes -Correct Procedure Yes -Procedure Performed Yes -Post Debridement Size (cm) - Length 0 -Post Debridement Size (cm) - Width 0 -Post Debridement Size (cm) - Depth 0 -Total Square Cm 0 -Wound/Ulcer Outcome Healed- Epithelialized -Ulcer Cleansing Rinsed/ Irrigated with Saline -Foul Odor after Cleansing No -Bioengineered Tissue No -Bleeding Controlled with NA -Treatment Response Procedure Tolerated Well #17-right 2nd toe -Time 14:41 -Correct Patient Yes -Correct Side, Site, Position Yes -Correct Procedure Yes -Procedure Performed Yes -Type of Procedure Debridement -Clinical Debridement Subcutaneous -Post Debridement Size (cm) - Length 0.2 -Post Debridement Size (cm) - Width 0.2 -Post Debridement Size (cm) - Depth 0.1 -Total Square Cm 0.04 -Wound/Ulcer Outcome Not Healed -Ulcer Cleansing Rinsed/ Irrigated with Saline -Foul Odor after Cleansing No -Bioengineered Tissue No -Topical Lidocaine (%) 4 -Bleeding Controlled with Pressure -Treatment Response Procedure Tolerated Well #4 Left central TMA -Time 14:42 -Correct Patient Yes -Correct Side, Site, Position Yes -Correct Procedure Yes -Procedure Performed Yes -Type of Procedure Debridement -Clinical Debridement Subcutaneous -Post Debridement Size (cm) - Length 0.7 -Post Debridement Size (cm) - Width 0.2 -Post Debridement Size (cm) - Depth 0.1 -Total Square Cm 0.14 -Wound/Ulcer Outcome Not Healed -Ulcer Cleansing Rinsed/ Irrigated with Saline -Foul Odor after Cleansing No -Bioengineered Tissue No -Topical Lidocaine (%) 4 -Bleeding Controlled with Pressure -Treatment Response Procedure Tolerated Well #1 right medial heel -Time 14:43 -Correct Patient Yes -Correct Side, Site, Position Yes -Correct Procedure Yes -Procedure Performed Yes -Type of Procedure Debridement -Clinical Debridement Subcutaneous -Post Debridement Size (cm) - Length 1.7 -Post Debridement Size (cm) - Width 1.1 -Post Debridement Size (cm) - Depth 0.2 -Total Square Cm 1.87 -Wound/Ulcer Outcome Not Healed -Ulcer Cleansing Rinsed/ Irrigated with Saline -Foul Odor after Cleansing No -Bioengineered Tissue No -Topical Lidocaine (%) 4 -Bleeding Controlled with Pressure -Treatment Response Procedure Tolerated Well [See Physician Procedure note for Specifics] Pain Scale: 0-10 Numeric [Pain] -Is Patient Pain Free? Yes Musculoskeletal: No Tenderness to Palpation of Joints or Extremities, Muscle Wasting, - - left transmetatarsal amputation stump site noted Neurological: - - lack of epicritic sensation via light touch bilateral lower extremity Psych/Mental Status: Normal Affect, Appropriate Debridement Note Post-Debridement Measurements/Treatment WC - Nurse 2 - General Ulcer CM Notes Start: 12/16/17 13:51 Freq: Status: Active Protocol: Activity Type Activity Date Activity User E-Sign Co-Sign Detail Recorded Client Recorded Date Recorded By Document 12/16/17 14:38 [id number] 12/16/17 14:44 TM 12/16/17 14:38 Wound Center Nurse 2 #15-LEFT LATERAL FOOT -Time 14:38 -Correct Patient Yes -Correct Side, Site, Position Yes -Correct Procedure Yes -Procedure Performed Yes -Type of Procedure Debridement -Clinical Debridement Subcutaneous -Post Debridement Size (cm) - Length 0.6 -Post Debridement Size (cm) - Width 0.5 -Post Debridement Size (cm) - Depth 0.2 -Total Square Cm 0.30 -Wound/Ulcer Outcome Not Healed -Ulcer Cleansing Rinsed/ Irrigated with Saline -Foul Odor after Cleansing No -Bioengineered Tissue No -Topical Lidocaine (%) 4 -Bleeding Controlled with Pressure -Treatment Response Procedure Tolerated Well #16- RT LOWER RUBIN CLUSTER -Time 14:41 -Correct Patient Yes -Correct Side, Site, Position Yes -Correct Procedure Yes -Procedure Performed Yes -Post Debridement Size (cm) - Length 0 -Post Debridement Size (cm) - Width 0 -Post Debridement Size (cm) - Depth 0 -Total Square Cm 0 -Wound/Ulcer Outcome Healed- Epithelialized -Ulcer Cleansing Rinsed/ Irrigated with Saline -Foul Odor after Cleansing No -Bioengineered Tissue No -Bleeding Controlled with NA -Treatment Response Procedure Tolerated Well #17-right 2nd toe -Time 14:41 -Correct Patient Yes -Correct Side, Site, Position Yes -Correct Procedure Yes -Procedure Performed Yes -Type of Procedure Debridement -Clinical Debridement Subcutaneous -Post Debridement Size (cm) - Length 0.2 -Post Debridement Size (cm) - Width 0.2 -Post Debridement Size (cm) - Depth 0.1 -Total Square Cm 0.04 -Wound/Ulcer Outcome Not Healed -Ulcer Cleansing Rinsed/ Irrigated with Saline -Foul Odor after Cleansing No -Bioengineered Tissue No -Topical Lidocaine (%) 4 -Bleeding Controlled with Pressure -Treatment Response Procedure Tolerated Well #4 Left central TMA -Time 14:42 -Correct Patient Yes -Correct Side, Site, Position Yes -Correct Procedure Yes -Procedure Performed Yes -Type of Procedure Debridement -Clinical Debridement Subcutaneous -Post Debridement Size (cm) - Length 0.7 -Post Debridement Size (cm) - Width 0.2 -Post Debridement Size (cm) - Depth 0.1 -Total Square Cm 0.14 -Wound/Ulcer Outcome Not Healed -Ulcer Cleansing Rinsed/ Irrigated with Saline -Foul Odor after Cleansing No -Bioengineered Tissue No -Topical Lidocaine (%) 4 -Bleeding Controlled with Pressure -Treatment Response Procedure Tolerated Well #1 right medial heel -Time 14:43 -Correct Patient Yes -Correct Side, Site, Position Yes -Correct Procedure Yes -Procedure Performed Yes -Type of Procedure Debridement -Clinical Debridement Subcutaneous -Post Debridement Size (cm) - Length 1.7 -Post Debridement Size (cm) - Width 1.1 -Post Debridement Size (cm) - Depth 0.2 -Total Square Cm 1.87 -Wound/Ulcer Outcome Not Healed -Ulcer Cleansing Rinsed/ Irrigated with Saline -Foul Odor after Cleansing No -Bioengineered Tissue No -Topical Lidocaine (%) 4 -Bleeding Controlled with Pressure -Treatment Response Procedure Tolerated Well Pain Scale: 0-10 Numeric Is Patient Pain Free? Yes Wound debrided: heel Laterality: Right Wound Grade/Stage: grade 3 Type of Debridement: Excisional debridement Anesthesia Used: 4% Lidocaine Solution Depth: in the subcutaneous layer Percentage of wound debrided: 100 Instrument Used: #15 blade Tissue Removed: fibrous, devitalized subcutaneous, biofilm, slough Severity: Fat Layer Exposed Amount of bleeding with debridement: Mild Bleeding Controlled with: Pressure Patient tolerated procedure well - Additional Wound Wound debrided: 2nd toe Laterality: Right Wound Grade/Stage: grade 1 Type of Debridement: Excisional debridement Anesthesia Used: 4% Lidocaine Solution Depth: in the subcutaneous layer Percentage of wound debrided: 100 Instrument Used: #15 blade Tissue Removed: fibrous, devitalized subcutaneous, biofilm, slough Severity: Fat Layer Exposed Amount of bleeding with debridement: Mild Bleeding Controlled with: Pressure Patient tolerated procedure: Patient tolerated procedure well - Additional Wound Wound debrided: leg Laterality: Right Wound Grade/Stage: grade 1 cluster Type of Debridement: Excisional debridement Anesthesia Used: 4% Lidocaine Solution Percentage of wound debrided: 10 Instrument Used: #15 blade Tissue Removed: fibrous, devitalized subcutaneous, biofilm, slough Severity: Fat Layer Exposed Amount of bleeding with debridement: Mild Bleeding Controlled with: Pressure Patient tolerated procedure: Patient tolerated procedure well - Additional Wound Wound debrided: lateral foot Laterality: Left Wound Grade/Stage: grade 1 Type of Debridement: Excisional debridement Anesthesia Used: 4% Lidocaine Solution Depth: in the subcutaneous layer Percentage of wound debrided: 100 Instrument Used: #15 blade Tissue Removed: fibrous, devitalized subcutaneous, biofilm, slough Severity: Fat Layer Exposed Amount of bleeding with debridement: Mild Bleeding Controlled with: Pressure Patient tolerated procedure: Patient tolerated procedure well - Additional Wound Wound debrided: central foot stump Laterality: Left Wound Grade/Stage: grade 1 Type of Debridement: Excisional debridement Anesthesia Used: 4% Lidocaine Solution Depth: in the subcutaneous layer Percentage of wound debrided: 100 Instrument Used: #15 blade Tissue Removed: fibrous, devitalized subcutaneous, biofilm, slough Severity: Fat Layer Exposed Amount of bleeding with debridement: Mild Bleeding Controlled with: Pressure Patient tolerated procedure: Patient tolerated procedure well Assessment/Plan Assessment: Right heel ulcer with delayed healing lateral left foot ulcer healed. right 2nd toe ulcer returned. 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 right leg ulcers. Left lateral foot ulcer, no infection. left foot ulcer very chronic. lymphedema and continued leg swelling. peripheral vacular disease. venous insufficiency Plan: I discussed his case and treatment plan. Subcutaneous excisional debridement to all bilateral ulcer sites performed today as noted in the clinical panel. He was reassured there are no local signs of infection noted today. It is noted he completed a full course of advanced wound care product, epifix,application. To apply Regranex to the ulcer sites 12 hours at she does get it put I noticed a lot better time when he is able to coordinate this with home health or family assistance. If lack of assistance is noted he can resume only [place]a use. . To maintain improved skin integrity by applying lac hydrin lotion to both legs daily. Continue circaid wraps bilateral legs daily; it is okay to apply tubigrip prior to application of CircAid foot wrap to better keep his wound dressings in place. To continue compression pump device daily; he is doing well with this. To proceed as previously advised with his lymphedema follow-up as advised. He is [facility] from the [facility] at this time and he is ordering a new foot compression garment that the lymphedema nurse recommended. He will follow-up with her the next time updated compression garments are required in approximately 6 months. To continue diuretic medications per primary care physician.To elevate legs at rest. Compliance is imperative and this was discussed again today. To continue with portion control for weight loss and proper glycemic control and nutritional supplementation to optimize healing. His hemoglobin A1c went from 9.0 to 7.4. To continue strict offloading to all these ulcer sites. To follow-up with vascular surgeon, Dr. Peng, on December 23, 2017 for intervention as advised. All of his questions were answered. He understands he is still at risk for limb loss. Due to the chronicity of the left lower extremity as well I recommend an updated left foot x-ray. The x-rays are reviewed without any gross fractures, dislocation, soft tissue emphysema, foreign body, or definitive osteomyelitis changes. There are some minimal reactive changes at the transmetatarsal amputation stump site. To follow-up at the wound care center in 2 week or call sooner if he has any questions or concerns. It is noted he will have vascular intervention next Thu.
--- NOTE | 2018-01-06 13:13 | PN.PCM_ITS ---
(1) Ulcer of right lower extremity with fat layer exposed Status: Chronic Current Visit: Yes Code(s): L97.912 - Non-pressure chronic ulcer of unspecified part of right lower leg with fat layer exposed (2) Chronic ulcer of left foot with fat layer exposed Status: Chronic Current Visit: Yes Code(s): L97.522 - Non-pressure chronic ulcer of other part of left foot with fat layer exposed (3) Ulcer of right foot with fat layer exposed Status: Chronic Current Visit: Yes Code(s): L97.512 - Non-pressure chronic ulcer of other part of right foot with fat layer exposed (4) Lymphedema Status: Chronic Current Visit: Yes Code(s): I89.0 - Lymphedema, not elsewhere classified (5) Venous insufficiency Status: Chronic Current Visit: Yes Code(s): I87.2 - Venous insufficiency (chronic) (peripheral) (6) Peripheral vascular disease Status: Chronic Current Visit: Yes Code(s): I73.9 - Peripheral vascular disease, unspecified (7) Obesity Status: Acute Current Visit: Yes Code(s): E66.9 - Obesity, unspecified (8) Type 2 diabetes mellitus with diabetic polyneuropathy Status: Chronic Current Visit: Yes Code(s): E11.42 - Type 2 diabetes mellitus with diabetic polyneuropathy (9) Malnutrition Status: Chronic Current Visit: Yes Code(s): E46 - Unspecified protein- calorie malnutrition Type of Wound Date of Service: 01/06/18 Chief Complaint: Right heel ulcer with delayed healing. 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 left lateral foot ulcer. right leg ulcers. right toe ulcer (second). lymphedema and continued leg swelling History of Wound: 62 year old male was seen for right heel ulcer with chronic osteomyelitis, left foot ulcers (two), and right ankle ulcer, leg ulcers and right toe ulcer. He denies fever, chill, nausea, vomiting. He has Regranex at home and home health has been helping when he has help available with the dressing changes. He uses the compession pump 2-3 times a day with significant edema reduction. He completed his vascular surgery angioplasty with Dr. Peng for the left lower extremity. He has a follow-up on February 06 and additional intervention on the right lower extremity will be considered. I will request these notes. He has received treatment at the lymphedema clinic as well. He denies redness or odor. He denies redness odor or other illness. He is a CircAid compression wraps and still has trouble with swelling because the swelling extends beyond the level of this previous compression wrap. Progress of Wound: improving - Physical Exam Vital Signs Temp Pulse Resp BP 96.8 F L 48 L 18 152/77 H 12/16/17 13:53 12/16/17 13:53 12/16/17 13:53 12/16/17 13:53 General: Alert, Oriented x3, Cooperative Extremities: No cyanosis, Capillary Refill Less than 3 Seconds, No Calf Tenderness - Negative Keara and Simmons sign bilateral, Diminished Peripheral Pulses, Edema - Bilateral lower extremities Skin: Ulcer/ Wound - No purulence, erythema, streaking, odor, or acute infection, maceration, or necrosis or deep this exposed tissues bilateral. The peripheral skin is hairless and atrophic. Wound Measurements and Assessment WC - Nurse 1 - General Ulcer Measurement Start: 12/16/17 13:51 Freq: Status: Active Protocol: Activity Type Activity Date Activity User E-Sign Co-Sign Detail Recorded Client Recorded Date Recorded By Document 01/06/18 10:44 [id number] 01/06/18 10:58 01/06/18 10:44 Wound Center Nurse 1 [Ulcer Assessment] 19 R lateral Ankle -Combined with other wound No -Current Size (cm) - Length 0.9 -Current Size (cm) - Width 1.0 -Current Size (cm) - Depth 0.1 -Total Square Cm 0.90 -Date of Last Picture (Recall this 01/06/18 field) -Photo Taken Yes -Epithelialization None Present -Tunneling No -Undermining/Tunneling No -Circular Undermining No -Exudate Amt Small (1-33%) -Exudate Type Serosanguineous -Wound Margin Distinct, Outline Attached -Granulation Amt Large (67-100%) -Granulation Quality Hoven -Necrosis Amt None Present (0 %) -Texture (Susy-wound Skin Appearance) Assessed Scarring -Moisture (Susy-wound Skin Appearance Assessed ) Dry/Scaly -Color (Susy-wound Skin Appearance) Assessed Hemosiderin Staining -Temperature (Susy-wound Skin No Abnormality Appearance) (Pt Warm) -Tenderness on Palpation (Susy-wound No Skin Appearance) -Ulcer Cleansing Rinsed/ Irrigated with Saline -Foul Odor after Cleansing No -Anesthetic Used 4% Lidocaine Solution 18 R bernstein -Combined with other wound No -Current Size (cm) - Length 1.7 -Current Size (cm) - Width 1.5 -Current Size (cm) - Depth 0.2 -Total Square Cm 2.55 -Date of Last Picture (Recall this 01/06/18 field) -Photo Taken Yes -Epithelialization None Present -Tunneling No -Undermining/Tunneling No -Circular Undermining No -Exudate Amt Small (1-33%) -Exudate Type Serosanguineous -Wound Margin Distinct, Outline Attached -Granulation Amt Small (1-33%) -Granulation Quality Hoven -Necrosis Amt None Present (0 %) -Structure Exposed Fat Layer Exposed -Texture (Susy-wound Skin Appearance) Assessed Scarring -Moisture (Susy-wound Skin Appearance Assessed ) Dry/Scaly -Color (Susy-wound Skin Appearance) Assessed Hemosiderin Staining -Temperature (Susy-wound Skin No Abnormality Appearance) (Pt Warm) -Tenderness on Palpation (Susy-wound No Skin Appearance) -Ulcer Cleansing Rinsed/ Irrigated with Saline -Foul Odor after Cleansing No -Anesthetic Used 4% Lidocaine Solution #15-LEFT LATERAL FOOT -Current Size (cm) - Length 0.5 -Current Size (cm) - Width 0.4 -Current Size (cm) - Depth 0.2 -Total Square Cm 0.20 -Date of Last Picture (Recall this 01/06/18 field) -Photo Taken Yes -Undermining/Tunneling Yes -Undermining/Tunneling Starts (O' 12 clock) -Undermining/Tunneling Ends (O'clock) 12 -Maximum Distance (cm) 0.3 -Circular Undermining Yes -Exudate Amt Small (1-33%) -Exudate Type Serosanguineous -Wound Margin Distinct, Outline Attached -Granulation Amt Small (1-33%) -Granulation Quality Hoven -Slough/Fibrin Yes -Necrosis Amt Small (1-33%) -Necrotic Tissue Type Adherent Slough -Structure Exposed Fat Layer Exposed -Texture (Susy-wound Skin Appearance) Assessed Scarring -Moisture (Susy-wound Skin Appearance Assessed ) Dry/Scaly -Color (Susy-wound Skin Appearance) No Abnormality Assessed -Temperature (Ussy-wound Skin No Abnormality Appearance) (Pt Warm) -Tenderness on Palpation (Susy-wound No Skin Appearance) -Ulcer Cleansing Rinsed/ Irrigated with Saline -Foul Odor after Cleansing No -Anesthetic Used 4% Lidocaine Solution #17-right 2nd toe -Combined with other wound No -Current Size (cm) - Length 0.1 -Current Size (cm) - Width 0.1 -Current Size (cm) - Depth 0.1 -Total Square Cm 0.01 -Date of Last Picture (Recall this 01/06/18 field) -Photo Taken Yes -Epithelialization Small 1-33% -Tunneling No -Undermining/Tunneling No -Circular Undermining No -Exudate Amt Small (1-33%) -Exudate Type Serosanguineous -Wound Margin Distinct, Outline Attached -Granulation Amt None Present (0 %) -Slough/Fibrin Yes -Necrosis Amt Large (67-100%) -Necrotic Tissue Type Adherent Slough -Texture (Susy-wound Skin Appearance) Assessed Scarring -Moisture (Susy-wound Skin Appearance Assessed ) Dry/Scaly -Color (Susy-wound Skin Appearance) No Abnormality Assessed -Temperature (Susy-wound Skin No Abnormality Appearance) (Pt Warm) -Tenderness on Palpation (Susy-wound No Skin Appearance) -Ulcer Cleansing Rinsed/ Irrigated with Saline -Foul Odor after Cleansing No -Anesthetic Used 4% Lidocaine Solution #4 Left central TMA -Combined with other wound No -Current Size (cm) - Length 0.4 -Current Size (cm) - Width 0.1 -Current Size (cm) - Depth 0.1 -Total Square Cm 0.04 -Date of Last Picture (Recall this 01/06/18 field) -Photo Taken Yes -Epithelialization None Present -Tunneling No -Undermining/Tunneling No -Circular Undermining No -Exudate Amt Small (1-33%) -Exudate Type Serosanguineous -Wound Margin Distinct, Outline Attached -Granulation Amt Small (1-33%) -Granulation Quality Hoven -Slough/Fibrin Yes -Necrosis Amt Small (1-33%) -Necrotic Tissue Type Adherent Slough -Texture (Susy-wound Skin Appearance) Assessed Scarring -Moisture (Susy-wound Skin Appearance Assessed ) Dry/Scaly -Color (Susy-wound Skin Appearance) No Abnormality Assessed -Temperature (Susy-wound Skin No Abnormality Appearance) (Pt Warm) -Tenderness on Palpation (Susy-wound No Skin Appearance) -Ulcer Cleansing Rinsed/ Irrigated with Saline -Foul Odor after Cleansing No -Anesthetic Used 4% Lidocaine Solution #1 right medial heel -Combined with other wound No -Current Size (cm) - Length 0.9 -Current Size (cm) - Width 1.3 -Current Size (cm) - Depth 0.3 -Total Square Cm 1.17 -Date of Last Picture (Recall this 01/06/18 field) -Photo Taken Yes -Tunneling No -Undermining/Tunneling No -Circular Undermining No -Exudate Amt Small (1-33%) -Exudate Type Serosanguineous -Wound Margin Distinct, Outline Attached -Granulation Amt Small (1-33%) -Granulation Quality Pale Hoven -Slough/Fibrin Yes -Necrosis Amt Medium (34-66%) -Necrotic Tissue Type Adherent Slough -Texture (Susy-wound Skin Appearance) Assessed Scarring -Moisture (Susy-wound Skin Appearance Assessed ) Dry/Scaly -Color (Susy-wound Skin Appearance) No Abnormality Assessed -Temperature (Susy-wound Skin No Abnormality Appearance) (Pt Warm) -Tenderness on Palpation (Susy-wound No Skin Appearance) -Ulcer Cleansing Rinsed/ Irrigated with Saline -Foul Odor after Cleansing No -Anesthetic Used 4% Lidocaine Solution [Edema Assessment] -Right Calf (cm) 47 -Right Ankle (cm) 29.1 -Left Calf (cm) 47 -Left Ankle (cm) 28 WC - Nurse 2 - General Ulcer CM Notes Start: 12/16/17 13:51 Freq: Status: Active Protocol: Activity Type Activity Date Activity User E-Sign Co-Sign Detail Recorded Client Recorded Date Recorded By Document 01/06/18 11:17 [id number] 01/06/18 11:21 01/06/18 11:17 Wound Center Nurse 2 [Procedure/Treatment] 19 R lateral Ankle -Time 11:17 -Correct Patient Yes -Correct Side, Site, Position Yes -Correct Procedure Yes -Procedure Performed Yes -Post Debridement Size (cm) - Length 0 -Post Debridement Size (cm) - Width 0 -Post Debridement Size (cm) - Depth 0 -Total Square Cm 0 -Wound/Ulcer Outcome Healed- Epithelialized -Ulcer Cleansing Rinsed/ Irrigated with Saline -Foul Odor after Cleansing No -Bioengineered Tissue No -Topical Lidocaine (%) 4 -Bleeding Controlled with NA -Treatment Response Procedure Tolerated Well 18 R bernstein -Time 11:19 -Correct Patient Yes -Correct Side, Site, Position Yes -Correct Procedure Yes -Procedure Performed Yes -Type of Procedure Debridement -Clinical Debridement Subcutaneous -Post Debridement Size (cm) - Length 1.8 -Post Debridement Size (cm) - Width 1.8 -Post Debridement Size (cm) - Depth 0.1 -Total Square Cm 3.24 -Wound/Ulcer Outcome Not Healed -Ulcer Cleansing Rinsed/ Irrigated with Saline -Foul Odor after Cleansing No -Bioengineered Tissue No -Topical Lidocaine (%) 4 -Bleeding Controlled with Pressure -Treatment Response Procedure Tolerated Well #15-LEFT LATERAL FOOT -Time 11:19 -Correct Patient Yes -Correct Side, Site, Position Yes -Correct Procedure Yes -Procedure Performed Yes -Type of Procedure Debridement -Clinical Debridement Subcutaneous -Post Debridement Size (cm) - Length 0.6 -Post Debridement Size (cm) - Width 0.5 -Post Debridement Size (cm) - Depth 0.2 -Total Square Cm 0.30 -Wound/Ulcer Outcome Not Healed -Ulcer Cleansing Rinsed/ Irrigated with Saline -Foul Odor after Cleansing No -Bioengineered Tissue No -Topical Lidocaine (%) 4 -Bleeding Controlled with Pressure -Treatment Response Procedure Tolerated Well #17-right 2nd toe -Time 11:19 -Correct Patient Yes -Correct Side, Site, Position Yes -Correct Procedure Yes -Procedure Performed Yes -Type of Procedure Debridement -Clinical Debridement Subcutaneous -Post Debridement Size (cm) - Length 0.3 -Post Debridement Size (cm) - Width 0.3 -Post Debridement Size (cm) - Depth 0.1 -Total Square Cm 0.09 -Wound/Ulcer Outcome Not Healed -Ulcer Cleansing Rinsed/ Irrigated with Saline -Foul Odor after Cleansing No -Bioengineered Tissue No -Topical Lidocaine (%) 4 -Bleeding Controlled with Pressure -Treatment Response Procedure Tolerated Well #4 Left central TMA -Time 11:20 -Correct Patient Yes -Correct Side, Site, Position Yes -Correct Procedure Yes -Procedure Performed Yes -Type of Procedure Debridement -Clinical Debridement Subcutaneous -Post Debridement Size (cm) - Length 0.5 -Post Debridement Size (cm) - Width 0.2 -Post Debridement Size (cm) - Depth 0.1 -Total Square Cm 0.10 -Wound/Ulcer Outcome Not Healed -Ulcer Cleansing Rinsed/ Irrigated with Saline -Foul Odor after Cleansing No -Bioengineered Tissue No -Topical Lidocaine (%) 4 -Bleeding Controlled with Pressure -Treatment Response Procedure Tolerated Well #1 right medial heel -Time 11:20 -Correct Patient Yes -Correct Side, Site, Position Yes -Correct Procedure Yes -Procedure Performed Yes -Type of Procedure Debridement -Clinical Debridement Subcutaneous -Post Debridement Size (cm) - Length 1.0 -Post Debridement Size (cm) - Width 1.4 -Post Debridement Size (cm) - Depth 0.3 -Total Square Cm 1.40 -Wound/Ulcer Outcome Not Healed -Ulcer Cleansing Rinsed/ Irrigated with Saline -Foul Odor after Cleansing No -Bioengineered Tissue No -Topical Lidocaine (%) 4 -Bleeding Controlled with Pressure -Treatment Response Procedure Tolerated Well [See Physician Procedure note for Specifics] Pain Scale: 0-10 Numeric [Pain] -Is Patient Pain Free? Yes Musculoskeletal: No Tenderness to Palpation of Joints or Extremities, Muscle Wasting, - - Left transmetatarsal amputation. Right hallux amputation. Compartments remain soft to palpate bilateral lower extremities. There is lymphedema type changes to bilateral lower extremities including the legs and thighs. Neurological: - - Lack of epicritic sensation light touch bilateral lower extremities Psych/Mental Status: Normal Affect, Appropriate Debridement Note Post-Debridement Measurements/Treatment WC - Nurse 2 - General Ulcer CM Notes Start: 12/16/17 13:51 Freq: Status: Active Protocol: Activity Type Activity Date Activity User E-Sign Co-Sign Detail Recorded Client Recorded Date Recorded By Document 12/16/17 14:38 [id number] 12/16/17 14:44 TM Document 01/06/18 11:17 [id number] 01/06/18 11:21 TM 12/16/17 01/06/18 14:38 11:17 Wound Center Nurse 2 19 R lateral Ankle -Time 11:17 -Correct Patient Yes -Correct Side, Site, Position Yes -Correct Procedure Yes -Procedure Performed Yes -Post Debridement Size (cm) - Length 0 -Post Debridement Size (cm) - Width 0 -Post Debridement Size (cm) - Depth 0 -Total Square Cm 0 -Wound/Ulcer Outcome Healed- Epithelialized -Ulcer Cleansing Rinsed/ Irrigated with Saline -Foul Odor after Cleansing No -Bioengineered Tissue No -Topical Lidocaine (%) 4 -Bleeding Controlled with NA -Treatment Response Procedure Tolerated Well 18 R bernstein -Time 11:19 -Correct Patient Yes -Correct Side, Site, Position Yes -Correct Procedure Yes -Procedure Performed Yes -Type of Procedure Debridement -Clinical Debridement Subcutaneous -Post Debridement Size (cm) - Length 1.8 -Post Debridement Size (cm) - Width 1.8 -Post Debridement Size (cm) - Depth 0.1 -Total Square Cm 3.24 -Wound/Ulcer Outcome Not Healed -Ulcer Cleansing Rinsed/ Irrigated with Saline -Foul Odor after Cleansing No -Bioengineered Tissue No -Topical Lidocaine (%) 4 -Bleeding Controlled with Pressure -Treatment Response Procedure Tolerated Well #15-LEFT LATERAL FOOT -Time 14:38 11:19 -Correct Patient Yes Yes -Correct Side, Site, Position Yes Yes -Correct Procedure Yes Yes -Procedure Performed Yes Yes -Type of Procedure Debridement Debridement -Clinical Debridement Subcutaneous Subcutaneous -Post Debridement Size (cm) - Length 0.6 0.6 -Post Debridement Size (cm) - Width 0.5 0.5 -Post Debridement Size (cm) - Depth 0.2 0.2 -Total Square Cm 0.30 0.30 -Wound/Ulcer Outcome Not Healed Not Healed -Ulcer Cleansing Rinsed/ Rinsed/ Irrigated with Irrigated with Saline Saline -Foul Odor after Cleansing No No -Bioengineered Tissue No No -Topical Lidocaine (%) 4 4 -Bleeding Controlled with Pressure Pressure -Treatment Response Procedure Procedure Tolerated Well Tolerated Well #16- RT LOWER BERNSTEIN CLUSTER -Time 14:41 -Correct Patient Yes -Correct Side, Site, Position Yes -Correct Procedure Yes -Procedure Performed Yes -Post Debridement Size (cm) - Length 0 -Post Debridement Size (cm) - Width 0 -Post Debridement Size (cm) - Depth 0 -Total Square Cm 0 -Wound/Ulcer Outcome Healed- Epithelialized -Ulcer Cleansing Rinsed/ Irrigated with Saline -Foul Odor after Cleansing No -Bioengineered Tissue No -Bleeding Controlled with NA -Treatment Response Procedure Tolerated Well #17-right 2nd toe -Time 14:41 11:19 -Correct Patient Yes Yes -Correct Side, Site, Position Yes Yes -Correct Procedure Yes Yes -Procedure Performed Yes Yes -Type of Procedure Debridement Debridement -Clinical Debridement Subcutaneous Subcutaneous -Post Debridement Size (cm) - Length 0.2 0.3 -Post Debridement Size (cm) - Width 0.2 0.3 -Post Debridement Size (cm) - Depth 0.1 0.1 -Total Square Cm 0.04 0.09 -Wound/Ulcer Outcome Not Healed Not Healed -Ulcer Cleansing Rinsed/ Rinsed/ Irrigated with Irrigated with Saline Saline -Foul Odor after Cleansing No No -Bioengineered Tissue No No -Topical Lidocaine (%) 4 4 -Bleeding Controlled with Pressure Pressure -Treatment Response Procedure Procedure Tolerated Well Tolerated Well #4 Left central TMA -Time 14:42 11:20 -Correct Patient Yes Yes -Correct Side, Site, Position Yes Yes -Correct Procedure Yes Yes -Procedure Performed Yes Yes -Type of Procedure Debridement Debridement -Clinical Debridement Subcutaneous Subcutaneous -Post Debridement Size (cm) - Length 0.7 0.5 -Post Debridement Size (cm) - Width 0.2 0.2 -Post Debridement Size (cm) - Depth 0.1 0.1 -Total Square Cm 0.14 0.10 -Wound/Ulcer Outcome Not Healed Not Healed -Ulcer Cleansing Rinsed/ Rinsed/ Irrigated with Irrigated with Saline Saline -Foul Odor after Cleansing No No -Bioengineered Tissue No No -Topical Lidocaine (%) 4 4 -Bleeding Controlled with Pressure Pressure -Treatment Response Procedure Procedure Tolerated Well Tolerated Well #1 right medial heel -Time 14:43 11:20 -Correct Patient Yes Yes -Correct Side, Site, Position Yes Yes -Correct Procedure Yes Yes -Procedure Performed Yes Yes -Type of Procedure Debridement Debridement -Clinical Debridement Subcutaneous Subcutaneous -Post Debridement Size (cm) - Length 1.7 1.0 -Post Debridement Size (cm) - Width 1.1 1.4 -Post Debridement Size (cm) - Depth 0.2 0.3 -Total Square Cm 1.87 1.40 -Wound/Ulcer Outcome Not Healed Not Healed -Ulcer Cleansing Rinsed/ Rinsed/ Irrigated with Irrigated with Saline Saline -Foul Odor after Cleansing No No -Bioengineered Tissue No No -Topical Lidocaine (%) 4 4 -Bleeding Controlled with Pressure Pressure -Treatment Response Procedure Procedure Tolerated Well Tolerated Well Pain Scale: 0-10 Numeric Is Patient Pain Free? Yes Yes Wound debrided: leg cluster Laterality: Right - g Wound Grade/Stage: grade 1 Type of Debridement: Excisional debridement Anesthesia Used: 4% Lidocaine Solution Depth: in the subcutaneous layer Percentage of wound debrided: 10 Instrument Used: #15 blade Tissue Removed: fibrous, devitalized subcutaneous, biofilm, slough Severity: Fat Layer Exposed Amount of bleeding with debridement: Mild Bleeding Controlled with: Pressure Patient tolerated procedure well - Additional Wound Wound debrided: anterior ankle Laterality: Right Wound Grade/Stage: grade 1 Type of Debridement: Excisional debridement Anesthesia Used: 4% Lidocaine Solution Depth: in the subcutaneous layer Percentage of wound debrided: 100 Instrument Used: #15 blade Tissue Removed: fibrous, devitalized subcutaneous, biofilm, slough Severity: Fat Layer Exposed Amount of bleeding with debridement: Mild Bleeding Controlled with: Pressure Patient tolerated procedure: Patient tolerated procedure well - Additional Wound Wound debrided: dorsal 2nd toe Laterality: Right Wound Grade/Stage: grade 1 Type of Debridement: Excisional debridement Anesthesia Used: 4% Lidocaine Solution Depth: in the subcutaneous layer Percentage of wound debrided: 100 Instrument Used: #15 blade Tissue Removed: fibrous, devitalized subcutaneous, biofilm, slough Severity: Fat Layer Exposed Amount of bleeding with debridement: Mild Bleeding Controlled with: Pressure Patient tolerated procedure: Patient tolerated procedure well - Additional Wound Wound debrided: heel Laterality: Right Wound Grade/Stage: grade 3 Type of Debridement: Excisional debridement Anesthesia Used: 4% Lidocaine Solution Depth: in the subcutaneous layer Percentage of wound debrided: 100 Instrument Used: #15 blade Tissue Removed: fibrous, devitalized subcutaneous, biofilm, slough Severity: Fat Layer Exposed Amount of bleeding with debridement: Mild Bleeding Controlled with: Pressure Patient tolerated procedure: Patient tolerated procedure well - Additional Wound Wound debrided: central amputation stump site (transmetatarsal amputation) Laterality: Left Wound Grade/Stage: grade 1 Type of Debridement: Excisional debridement Anesthesia Used: 4% Lidocaine Solution Depth: in the subcutaneous layer Percentage of wound debrided: 100 Instrument Used: #15 blade Tissue Removed: fibrous, devitalized subcutaneous, biofilm, slough Severity: Fat Layer Exposed Amount of bleeding with debridement: Mild Bleeding Controlled with: Pressure Patient tolerated procedure: Patient tolerated procedure well - Additional Wound Wound debrided: lateral foot Laterality: Left Wound Grade/Stage: grade 1 Type of Debridement: Excisional debridement Anesthesia Used: 4% Lidocaine Solution Depth: in the subcutaneous layer Percentage of wound debrided: 100 Instrument Used: #15 blade Tissue Removed: fibrous, devitalized subcutaneous, biofilm, slough Severity: Fat Layer Exposed Amount of bleeding with debridement: Mild Bleeding Controlled with: Pressure Patient tolerated procedure: Patient tolerated procedure well Assessment/Plan Active Problems Lymphedema (Chronic) Venous insufficiency (Chronic) Peripheral vascular disease (Chronic) Ulcer of right foot with fat layer exposed (Chronic) Chronic ulcer of left foot with fat layer exposed (Chronic) Ulcer of right lower extremity with fat layer exposed (Chronic) Obesity (Acute) Type 2 diabetes mellitus with diabetic polyneuropathy (Chronic) Malnutrition (Chronic) Assessment: Right heel ulcer with delayed healing lateral left foot ulcer healed. right 2nd toe ulcer returned. 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 right leg ulcers. Left lateral foot ulcer, no infection. lymphedema and continued leg swelling. peripheral vacular disease. venous insufficiency Plan: I discussed his case and treatment plan. Subcutaneous excisional debridement to all bilateral ulcer sites performed today as noted in the clinical panel. He was reassured there are no local signs of infection noted today. It is noted he completed a full course of advanced wound care product, epifix,application. To apply Regranex to the ulcer sites 12 hours at she does get it put I noticed a lot better time when he is able to coordinate this with home health or family assistance. If lack of assistance is noted he can resume only [place]a use. . To maintain improved skin integrity by applying lac hydrin lotion to both legs daily. Continue circaid wraps bilateral legs daily; it is okay to apply tubigrip prior to application of CircAid foot wrap to better keep his wound dressings in place. To continue compression pump device daily; he is doing well with this. To proceed as previously advised with his [facility] follow-up as advised. He is discharged from the [facility] at this time. Farrow compression garments to promote improved continued edema management at a more proximal level. This is medically necessary this will be ordered at this time for bilateral lower extremity. To continue diuretic medications per primary care physician.To elevate legs at rest. Compliance is imperative and this was discussed again today. To continue with portion control for weight loss and proper glycemic control and nutritional supplementation to optimize healing. His hemoglobin A1c went from 9.0 to 7.4. To continue strict offloading to all these ulcer sites. To follow-up with Dr. Peng as advised. His recent vascular intervention in the left lower extremity is noted. All of his questions were answered. He understands he is still at risk for limb loss. To follow-up at the wound care center in 1 week or call sooner if he has any questions or concerns.
[2018-01-13 10:41] VITALS: BP 146/67; PULSE 59; RESP 18; TEMP 37.2
--- NOTE | 2018-01-13 13:10 | PN.PCM_ITS ---
(1) Ulcer of right lower extremity with fat layer exposed Status: Chronic Code(s): L97.912 - Non-pressure chronic ulcer of unspecified part of right lower leg with fat layer exposed (2) Chronic ulcer of left foot with fat layer exposed Status: Chronic Code(s): L97.522 - Non-pressure chronic ulcer of other part of left foot with fat layer exposed (3) Ulcer of right foot with fat layer exposed Status: Chronic Code(s): L97.512 - Non-pressure chronic ulcer of other part of right foot with fat layer exposed (4) Lymphedema Status: Chronic Code(s): I89.0 - Lymphedema, not elsewhere classified (5) Venous insufficiency Status: Chronic Code(s): I87.2 - Venous insufficiency (chronic) (peripheral) (6) Peripheral vascular disease Status: Chronic Code(s): I73.9 - Peripheral vascular disease, unspecified (7) Obesity Status: Acute Code(s): E66.9 - Obesity, unspecified (8) Type 2 diabetes mellitus with diabetic polyneuropathy Status: Chronic Code(s): E11.42 - Type 2 diabetes mellitus with diabetic polyneuropathy (9) Malnutrition Status: Chronic Code(s): E46 - Unspecified protein-calorie malnutrition Type of Wound Date of Service: 01/13/18 Chief Complaint: Right heel ulcer with delayed healing. 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 left lateral foot ulcer. right leg ulcers. right toe ulcer (second). lymphedema and continued leg swelling History of Wound: 62 year old male was seen for right heel ulcer with chronic osteomyelitis, left foot ulcers (two), and right ankle ulcer, leg ulcers and right toe ulcer. He denies fever, chill, nausea, vomiting. He has Regranex at home and home health has been helping when he has help available with the dressing changes. He uses the compession pump 2-3 times a day with significant edema reduction. He completed his vascular surgery angioplasty with Dr. Pegn for the left lower extremity. He has a follow-up on February 06 and additional intervention on the right lower extremity will be considered. I will request these notes. He has received treatment at the lymphedema clinic as well. He denies redness or odor. He denies redness odor or other illness. He is a CircAid compression wraps and still has trouble with swelling because the swelling extends beyond the level of this previous compression wrap. Progress of Wound: improving - Physical Exam Vital Signs Temp Pulse Resp BP 98.9 F 59 L 18 146/67 H 01/13/18 10:41 01/13/18 10:41 01/13/18 10:41 01/13/18 10:41 General: Alert, Oriented x3, Cooperative Extremities: No cyanosis, Capillary Refill Less than 3 Seconds, No Calf Tenderness - Negative Keara and Simmons sign bilateral, Diminished Peripheral Pulses, Edema - Bilateral lower extremities continued Skin: Ulcer/ Wound - No purulence, no erythema, streaking, odor, no infection bilateral. The peripheral skin is hairless and atrophic. There is no exposed deep tissue bilateral Wound Measurements and Assessment WC - Nurse 1 - General Ulcer Measurement Start: 12/16/17 13:51 Freq: Status: Active Protocol: Activity Type Activity Date Activity User E-Sign Co-Sign Detail Recorded Client Recorded Date Recorded By Document 01/13/18 10:41 [id number] 01/13/18 10:51 01/13/18 10:41 Wound Center Nurse 1 [Ulcer Assessment] 18 R bernstein Cluster -Combined with other wound No -Current Size (cm) - Length 8.0 -Current Size (cm) - Width 7.5 -Current Size (cm) - Depth 0.2 -Total Square Cm 60.00 -Photo Taken No -Epithelialization Small 1-33% -Tunneling No -Undermining/Tunneling No -Circular Undermining No -Exudate Amt Small (1-33%) -Exudate Type Serosanguineous -Wound Margin Distinct, Outline Attached -Granulation Amt Small (1-33%) -Granulation Quality Red -Necrosis Amt Small (1-33%) -Necrotic Tissue Type Adherent Slough -Structure Exposed Fat Layer Exposed -Texture (Susy-wound Skin Appearance) Assessed Scarring -Moisture (Susy-wound Skin Appearance Assessed ) Dry/Scaly -Color (Susy-wound Skin Appearance) Assessed Hemosiderin Staining -Temperature (Susy-wound Skin No Abnormality Appearance) (Pt Warm) -Tenderness on Palpation (Susy-wound No Skin Appearance) -Ulcer Cleansing Rinsed/ Irrigated with Saline -Foul Odor after Cleansing No -Anesthetic Used 4% Lidocaine Solution #15-LEFT LATERAL FOOT -Combined with other wound No -Current Size (cm) - Length 1.0 -Current Size (cm) - Width 0.8 -Current Size (cm) - Depth 0.2 -Total Square Cm 0.80 -Photo Taken No -Epithelialization None Present -Tunneling No -Undermining/Tunneling No -Circular Undermining No -Exudate Amt Small (1-33%) -Exudate Type Serosanguineous -Wound Margin Thickened -Granulation Amt Small (1-33%) -Granulation Quality Pale [place] -Slough/Fibrin Yes -Necrosis Amt Medium (34-66%) -Necrotic Tissue Type Adherent Slough -Texture (Susy-wound Skin Appearance) Assessed Callus Scarring -Moisture (Susy-wound Skin Appearance Assessed ) Dry/Scaly -Color (Susy-wound Skin Appearance) Assessed -Temperature (Susy-wound Skin No Abnormality Appearance) (Pt Warm) -Tenderness on Palpation (Susy-wound No Skin Appearance) -Foul Odor after Cleansing No -Anesthetic Used 4% Lidocaine Solution #17-right 2nd toe -Combined with other wound No -Current Size (cm) - Length 0.1 -Current Size (cm) - Width 0.1 -Current Size (cm) - Depth 0.1 -Total Square Cm 0.01 -Photo Taken No -Epithelialization None Present -Tunneling No -Undermining/Tunneling No -Circular Undermining No -Exudate Amt Small (1-33%) -Exudate Type Serosanguineous -Wound Margin Distinct, Outline Attached -Granulation Amt None Present (0 %) -Slough/Fibrin Yes -Necrosis Amt Large (67-100%) -Necrotic Tissue Type Adherent Slough -Texture (Susy-wound Skin Appearance) Assessed Scarring -Moisture (Susy-wound Skin Appearance Assessed ) Dry/Scaly -Color (Susy-wound Skin Appearance) No Abnormality Assessed -Temperature (Susy-wound Skin No Abnormality Appearance) (Pt Warm) -Tenderness on Palpation (Susy-wound No Skin Appearance) -Ulcer Cleansing Rinsed/ Irrigated with Saline -Foul Odor after Cleansing No -Anesthetic Used 4% Lidocaine Solution #4 Left central TMA -Combined with other wound No -Current Size (cm) - Length 0.3 -Current Size (cm) - Width 0.1 -Current Size (cm) - Depth 0.1 -Total Square Cm 0.03 -Photo Taken No -Epithelialization None Present -Tunneling No -Undermining/Tunneling No -Circular Undermining No -Exudate Amt Small (1-33%) -Exudate Type Serosanguineous -Wound Margin Distinct, Outline Attached -Granulation Amt Small (1-33%) -Granulation Quality Pale [place] -Slough/Fibrin Yes -Necrosis Amt Medium (34-66%) -Necrotic Tissue Type Adherent Slough -Structure Exposed Fat Layer Exposed -Texture (Susy-wound Skin Appearance) Assessed Scarring -Moisture (Susy-wound Skin Appearance Assessed ) Dry/Scaly -Color (Susy-wound Skin Appearance) Assessed -Temperature (Susy-wound Skin No Abnormality Appearance) (Pt Warm) -Tenderness on Palpation (Susy-wound No Skin Appearance) -Ulcer Cleansing Rinsed/ Irrigated with Saline -Foul Odor after Cleansing No -Anesthetic Used 4% Lidocaine Solution #1 right medial heel -Combined with other wound No -Current Size (cm) - Length 1.0 -Current Size (cm) - Width 1.3 -Current Size (cm) - Depth 0.3 -Total Square Cm 1.30 -Photo Taken No -Epithelialization None Present -Tunneling No -Undermining/Tunneling No -Circular Undermining No -Exudate Amt Small (1-33%) -Exudate Type Serosanguineous -Wound Margin Distinct, Outline Attached -Granulation Amt Medium (34-66%) -Granulation Quality [place] -Slough/Fibrin Yes -Necrosis Amt Medium (34-66%) -Necrotic Tissue Type Adherent Slough -Texture (Susy-wound Skin Appearance) Assessed Scarring -Moisture (Susy-wound Skin Appearance Assessed ) Dry/Scaly -Color (Susy-wound Skin Appearance) No Abnormality Assessed -Temperature (Susy-wound Skin No Abnormality Appearance) (Pt Warm) -Tenderness on Palpation (Susy-wound No Skin Appearance) -Ulcer Cleansing Rinsed/ Irrigated with Saline -Foul Odor after Cleansing No -Anesthetic Used 4% Lidocaine Solution [Edema Assessment] -Right Calf (cm) 47.4 -Right Ankle (cm) 29.2 -Left Calf (cm) 47 -Left Ankle (cm) 29.6 WC - Nurse 2 - General Ulcer CM Notes Start: 12/16/17 13:51 Freq: Status: Active Protocol: Activity Type Activity Date Activity User E-Sign Co-Sign Detail Recorded Client Recorded Date Recorded By Document 01/13/18 11:32 TM [id number] 01/13/18 11:34 01/13/18 11:32 Wound Center Nurse 2 [Procedure/Treatment] 18 R bernstein Cluster -Time 11:32 -Correct Patient Yes -Correct Side, Site, Position Yes -Correct Procedure Yes -Procedure Performed Yes -Type of Procedure Debridement -Clinical Debridement Subcutaneous -Post Debridement Size (cm) - Length 8.0 -Post Debridement Size (cm) - Width 7.5 -Post Debridement Size (cm) - Depth 0.2 -Total Square Cm 60.00 -Wound/Ulcer Outcome Not Healed -Ulcer Cleansing Rinsed/ Irrigated with Saline -Foul Odor after Cleansing No -Bioengineered Tissue No -Topical Lidocaine (%) 4 -Bleeding Controlled with Pressure -Treatment Response Procedure Tolerated Well #15-LEFT LATERAL FOOT -Time 11:32 -Correct Patient Yes -Correct Side, Site, Position Yes -Correct Procedure Yes -Procedure Performed Yes -Type of Procedure Debridement -Clinical Debridement Subcutaneous -Post Debridement Size (cm) - Length 1.1 -Post Debridement Size (cm) - Width 0.9 -Post Debridement Size (cm) - Depth 0.2 -Total Square Cm 0.99 -Wound/Ulcer Outcome Not Healed -Ulcer Cleansing Rinsed/ Irrigated with Saline -Foul Odor after Cleansing No -Bioengineered Tissue No -Topical Lidocaine (%) 4 -Bleeding Controlled with Pressure -Treatment Response Procedure Tolerated Well #17-right 2nd toe -Time 11:33 -Correct Patient Yes -Correct Side, Site, Position Yes -Correct Procedure Yes -Procedure Performed Yes -Type of Procedure Debridement -Clinical Debridement Subcutaneous -Post Debridement Size (cm) - Length 0.2 -Post Debridement Size (cm) - Width 0.2 -Post Debridement Size (cm) - Depth 0.1 -Total Square Cm 0.04 -Wound/Ulcer Outcome Not Healed -Ulcer Cleansing Rinsed/ Irrigated with Saline -Foul Odor after Cleansing No -Bioengineered Tissue No -Topical Lidocaine (%) 4 -Bleeding Controlled with Pressure -Treatment Response Procedure Tolerated Well #4 Left central TMA -Time 11:33 -Correct Patient Yes -Correct Side, Site, Position Yes -Correct Procedure Yes -Procedure Performed Yes -Type of Procedure Debridement -Clinical Debridement Subcutaneous -Post Debridement Size (cm) - Length 0.3 -Post Debridement Size (cm) - Width 0.1 -Post Debridement Size (cm) - Depth 0.1 -Total Square Cm 0.03 -Wound/Ulcer Outcome Not Healed -Ulcer Cleansing Rinsed/ Irrigated with Saline -Foul Odor after Cleansing No -Bioengineered Tissue No -Topical Lidocaine (%) 4 -Bleeding Controlled with Pressure -Treatment Response Procedure Tolerated Well #1 right medial heel -Time 11:33 -Correct Patient Yes -Correct Side, Site, Position Yes -Correct Procedure Yes -Procedure Performed Yes -Type of Procedure Debridement -Clinical Debridement Subcutaneous -Post Debridement Size (cm) - Length 1.1 -Post Debridement Size (cm) - Width 1.4 -Post Debridement Size (cm) - Depth 0.3 -Total Square Cm 1.54 -Wound/Ulcer Outcome Not Healed -Ulcer Cleansing Rinsed/ Irrigated with Saline -Foul Odor after Cleansing No -Bioengineered Tissue No -Topical Lidocaine (%) 4 -Bleeding Controlled with Pressure -Treatment Response Procedure Tolerated Well [See Physician Procedure note for Specifics] Pain Scale: 0-10 Numeric [Pain] -Is Patient Pain Free? Yes Musculoskeletal: No Tenderness to Palpation of Joints or Extremities, Muscle Wasting, - - Left transmetatarsal amputation Neurological: - - Lack of epicritic sensation light touch consistent with neuropathy bilateral lower extremities Psych/Mental Status: Normal Affect, Appropriate Debridement Note Post-Debridement Measurements/Treatment WC - Nurse 2 - General Ulcer CM Notes Start: 12/16/17 13:51 Freq: Status: Active Protocol: Activity Type Activity Date Activity User E-Sign Co-Sign Detail Recorded Client Recorded Date Recorded By Document 12/16/17 14:38 [id number] 12/16/17 14:44 TM Document 01/06/18 11:17 [id number] 01/06/18 11:21 TM Document 01/13/18 11:32 [id number] 01/13/18 11:34 12/16/17 01/06/18 01/13/18 14:38 11:17 11:32 Wound Center Nurse 2 19 R lateral Ankle -Time 11:17 -Correct Patient Yes -Correct Side, Site, Position Yes -Correct Procedure Yes -Procedure Performed Yes -Post Debridement Size (cm) - Length 0 -Post Debridement Size (cm) - Width 0 -Post Debridement Size (cm) - Depth 0 -Total Square Cm 0 -Wound/Ulcer Outcome Healed- Epithelialized -Ulcer Cleansing Rinsed/ Irrigated with Saline -Foul Odor after Cleansing No -Bioengineered Tissue No -Topical Lidocaine (%) 4 -Bleeding Controlled with NA -Treatment Response Procedure Tolerated Well 18 R bernstein Cluster -Time 11:19 11:32 -Correct Patient Yes Yes -Correct Side, Site, Position Yes Yes -Correct Procedure Yes Yes -Procedure Performed Yes Yes -Type of Procedure Debridement Debridement -Clinical Debridement Subcutaneous Subcutaneous -Post Debridement Size (cm) - Length 1.8 8.0 -Post Debridement Size (cm) - Width 1.8 7.5 -Post Debridement Size (cm) - Depth 0.1 0.2 -Total Square Cm 3.24 60.00 -Wound/Ulcer Outcome Not Healed Not Healed -Ulcer Cleansing Rinsed/ Rinsed/ Irrigated with Irrigated with Saline Saline -Foul Odor after Cleansing No No -Bioengineered Tissue No No -Topical Lidocaine (%) 4 4 -Bleeding Controlled with Pressure Pressure -Treatment Response Procedure Procedure Tolerated Well Tolerated Well #15-LEFT LATERAL FOOT -Time 14:38 11:19 11:32 -Correct Patient Yes Yes Yes -Correct Side, Site, Position Yes Yes Yes -Correct Procedure Yes Yes Yes -Procedure Performed Yes Yes Yes -Type of Procedure Debridement Debridement Debridement -Clinical Debridement Subcutaneous Subcutaneous Subcutaneous -Post Debridement Size (cm) - Length 0.6 0.6 1.1 -Post Debridement Size (cm) - Width 0.5 0.5 0.9 -Post Debridement Size (cm) - Depth 0.2 0.2 0.2 -Total Square Cm 0.30 0.30 0.99 -Wound/Ulcer Outcome Not Healed Not Healed Not Healed -Ulcer Cleansing Rinsed/ Rinsed/ Rinsed/ Irrigated with Irrigated with Irrigated with Saline Saline Saline -Foul Odor after Cleansing No No No -Bioengineered Tissue No No No -Topical Lidocaine (%) 4 4 4 -Bleeding Controlled with Pressure Pressure Pressure -Treatment Response Procedure Procedure Procedure Tolerated Well Tolerated Well Tolerated Well #16- RT LOWER BERNSTEIN CLUSTER -Time 14:41 -Correct Patient Yes -Correct Side, Site, Position Yes -Correct Procedure Yes -Procedure Performed Yes -Post Debridement Size (cm) - Length 0 -Post Debridement Size (cm) - Width 0 -Post Debridement Size (cm) - Depth 0 -Total Square Cm 0 -Wound/Ulcer Outcome Healed- Epithelialized -Ulcer Cleansing Rinsed/ Irrigated with Saline -Foul Odor after Cleansing No -Bioengineered Tissue No -Bleeding Controlled with NA -Treatment Response Procedure Tolerated Well #17-right 2nd toe -Time 14:41 11:19 11:33 -Correct Patient Yes Yes Yes -Correct Side, Site, Position Yes Yes Yes -Correct Procedure Yes Yes Yes -Procedure Performed Yes Yes Yes -Type of Procedure Debridement Debridement Debridement -Clinical Debridement Subcutaneous Subcutaneous Subcutaneous -Post Debridement Size (cm) - Length 0.2 0.3 0.2 -Post Debridement Size (cm) - Width 0.2 0.3 0.2 -Post Debridement Size (cm) - Depth 0.1 0.1 0.1 -Total Square Cm 0.04 0.09 0.04 -Wound/Ulcer Outcome Not Healed Not Healed Not Healed -Ulcer Cleansing Rinsed/ Rinsed/ Rinsed/ Irrigated with Irrigated with Irrigated with Saline Saline Saline -Foul Odor after Cleansing No No No -Bioengineered Tissue No No No -Topical Lidocaine (%) 4 4 4 -Bleeding Controlled with Pressure Pressure Pressure -Treatment Response Procedure Procedure Procedure Tolerated Well Tolerated Well Tolerated Well #4 Left central TMA -Time 14:42 11:20 11:33 -Correct Patient Yes Yes Yes -Correct Side, Site, Position Yes Yes Yes -Correct Procedure Yes Yes Yes -Procedure Performed Yes Yes Yes -Type of Procedure Debridement Debridement Debridement -Clinical Debridement Subcutaneous Subcutaneous Subcutaneous -Post Debridement Size (cm) - Length 0.7 0.5 0.3 -Post Debridement Size (cm) - Width 0.2 0.2 0.1 -Post Debridement Size (cm) - Depth 0.1 0.1 0.1 -Total Square Cm 0.14 0.10 0.03 -Wound/Ulcer Outcome Not Healed Not Healed Not Healed -Ulcer Cleansing Rinsed/ Rinsed/ Rinsed/ Irrigated with Irrigated with Irrigated with Saline Saline Saline -Foul Odor after Cleansing No No No -Bioengineered Tissue No No No -Topical Lidocaine (%) 4 4 4 -Bleeding Controlled with Pressure Pressure Pressure -Treatment Response Procedure Procedure Procedure Tolerated Well Tolerated Well Tolerated Well #1 right medial heel -Time 14:43 11:20 11:33 -Correct Patient Yes Yes Yes -Correct Side, Site, Position Yes Yes Yes -Correct Procedure Yes Yes Yes -Procedure Performed Yes Yes Yes -Type of Procedure Debridement Debridement Debridement -Clinical Debridement Subcutaneous Subcutaneous Subcutaneous -Post Debridement Size (cm) - Length 1.7 1.0 1.1 -Post Debridement Size (cm) - Width 1.1 1.4 1.4 -Post Debridement Size (cm) - Depth 0.2 0.3 0.3 -Total Square Cm 1.87 1.40 1.54 -Wound/Ulcer Outcome Not Healed Not Healed Not Healed -Ulcer Cleansing Rinsed/ Rinsed/ Rinsed/ Irrigated with Irrigated with Irrigated with Saline Saline Saline -Foul Odor after Cleansing No No No -Bioengineered Tissue No No No -Topical Lidocaine (%) 4 4 4 -Bleeding Controlled with Pressure Pressure Pressure -Treatment Response Procedure Procedure Procedure Tolerated Well Tolerated Well Tolerated Well Pain Scale: 0-10 Numeric Is Patient Pain Free? Yes Yes Yes Wound debrided: central stump site Laterality: Left Wound Grade/Stage: grade 1 Type of Debridement: Excisional debridement Anesthesia Used: 4% Lidocaine Solution Depth: in the subcutaneous layer Percentage of wound debrided: 100 Instrument Used: #15 blade Tissue Removed: fibrous, devitalized subcutaneous, biofilm, slough Severity: Fat Layer Exposed Amount of bleeding with debridement: Mild Bleeding Controlled with: Pressure Patient tolerated procedure well - Additional Wound Wound debrided: lateral foot Laterality: Left Wound Grade/Stage: grade 1 Type of Debridement: Excisional debridement Anesthesia Used: 4% Lidocaine Solution Depth: in the subcutaneous layer Percentage of wound debrided: 100 Instrument Used: #15 blade Tissue Removed: fibrous, devitalized subcutaneous, biofilm, slough Severity: Fat Layer Exposed Amount of bleeding with debridement: Mild Bleeding Controlled with: Pressure Patient tolerated procedure: Patient tolerated procedure well - Additional Wound Wound debrided: heel Laterality: Right Wound Grade/Stage: grade 3 Type of Debridement: Excisional debridement Anesthesia Used: 4% Lidocaine Solution Depth: in the subcutaneous layer Percentage of wound debrided: 100 Instrument Used: #15 blade Tissue Removed: fibrous, devitalized subcutaneous, biofilm, slough Severity: Fat Layer Exposed Amount of bleeding with debridement: Mild Bleeding Controlled with: Pressure Patient tolerated procedure: Patient tolerated procedure well - Additional Wound Wound debrided: leg cluster Laterality: Right Wound Grade/Stage: grade 1 Type of Debridement: Excisional debridement Anesthesia Used: 4% Lidocaine Solution Depth: in the subcutaneous layer Percentage of wound debrided: - - 8% Instrument Used: #15 blade Tissue Removed: fibrous, devitalized subcutaneous, biofilm, slough Severity: Fat Layer Exposed Amount of bleeding with debridement: Mild Bleeding Controlled with: Pressure Patient tolerated procedure: Patient tolerated procedure well - Additional Wound Wound debrided: dorsal 2nd toe Laterality: Right Wound Grade/Stage: grade 1 Type of Debridement: Excisional debridement Anesthesia Used: 4% Lidocaine Solution Depth: in the subcutaneous layer Percentage of wound debrided: 100 Instrument Used: #15 blade Tissue Removed: fibrous, devitalized subcutaneous, biofilm, slough Severity: Fat Layer Exposed Amount of bleeding with debridement: Mild Bleeding Controlled with: Pressure Patient tolerated procedure: Patient tolerated procedure well Assessment/Plan Assessment: Right heel ulcer with delayed healing lateral left foot ulcer he aled. right 2nd toe ulcer returned. 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 right leg ulcers. Left lateral foot ulcer, no infection. lymphedema and continued leg swelling. peripheral vacular disease. venous insufficiency Plan: I discussed his case and treatment plan. Subcutaneous excisional debridement to all bilateral ulcer sites performed today as noted in the clinical panel. He was reassured there are no local signs of infection noted today. It is noted he completed a full course of advanced wound care product, epifix,application. To apply Regranex to the ulcer sites 12 hours at she does get it put I noticed a lot better time when he is able to coordinate this with home health or family assistance. If lack of assistance is noted he can resume only [place] use. . To maintain improved skin integrity by applying lac hydrin lotion to both legs daily. Continue circaid wraps bilateral legs daily; it is okay to apply tubigrip prior to application of CircAid foot wrap to better keep his wound dressings in place. To continue compression pump device daily; he is doing well with this. To proceed as previously advised with his lymphedema follow-up as advised. He is discharged from the [facility] at this time. Farrow compression garments to promote improved continued edema management at a more proximal level. This is medically necessary this will be ordered at this time for bilateral lower extremity. To continue diuretic medications per primary care physician.To elevate legs at rest. Compliance is imperative and this was discussed again today. To continue with portion control for weight loss and proper glycemic control and nutritional supplementation to optimize healing. His hemoglobin A1c went from 9.0 to 7.4. To continue strict offloading to all these ulcer sites. To follow-up with Dr. Peng as advised. His recent vascular intervention in the left lower extremity is noted. All of his questions were answered. He understands he is still at risk for limb loss. I also recommend stricter offloading for the left lateral foot. He reports he sleeps with pressure on this side occasionally. A prescription for an offloading donut pillow was provided today and he was advised on proper use. To follow-up at the wound care center in 1 week or call sooner if he has any questions or concerns.
== END 2018-01-13 23:59 ==
LOC: WC 11:00
PROVIDERS: Family Provider Family Medicine; PCP Family Medicine; Referring Provider Podiatrist; Visit Provider Podiatrist
DX: E11.621 Type 2 diabetes mellitus with foot ulcer (principal); I89.0 Lymphedema, not elsewhere classified; L97.512 Non-pressure chronic ulcer of other part of right foot with fat layer exposed; L97.522 Non-pressure chronic ulcer of other part of left foot with fat layer exposed; E11.51 Type 2 diabetes mellitus with diabetic peripheral angiopathy without gangrene; E11.42 Type 2 diabetes mellitus with diabetic polyneuropathy; L97.412 Non-pressure chronic ulcer of right heel and midfoot with fat layer exposed; L97.812 Non-pressure chronic ulcer of other part of right lower leg with fat layer exposed
CPT/HCPCS: 11042; 11045

== ENCOUNTER 2018-02-03 11:00 | Outpatient (RCR) | payer MEDICARE, MEDICAID, SELFPAY ==
[2018-01-14 00:42] VITALS: BP 146/67; PULSE 59; RESP 18; TEMP 37.2
[2018-01-20 11:02] VITALS: BP 187/85; PULSE 56; RESP 16; TEMP 36.2
--- NOTE | 2018-01-20 12:01 | PN.PCM_ITS ---
(1) Chronic ulcer of left foot with fat layer exposed Status: Chronic Current Visit: Yes Code(s): L97.522 - Non-pressure chronic ulcer of other part of left foot with fat layer exposed (2) Ulcer of right foot with fat layer exposed Status: Chronic Current Visit: Yes Code(s): L97.512 - Non-pressure chronic ulcer of other part of right foot with fat layer exposed (3) Ulcer of right lower extremity with fat layer exposed Status: Chronic Current Visit: Yes Code(s): L97.912 - Non-pressure chronic ulcer of unspecified part of right lower leg with fat layer exposed (4) Lymphedema Status: Chronic Current Visit: Yes Code(s): I89.0 - Lymphedema, not elsewhere classified (5) Venous insufficiency Status: Chronic Current Visit: Yes Code(s): I87.2 - Venous insufficiency (chronic) (peripheral) (6) Peripheral vascular disease Status: Chronic Current Visit: Yes Code(s): I73.9 - Peripheral vascular disease, unspecified (7) Lower extremity edema Status: Chronic Current Visit: Yes Code(s): R60.0 - Localized edema (8) Type 2 diabetes mellitus with diabetic polyneuropathy Status: Chronic Current Visit: Yes Code(s): E11.42 - Type 2 diabetes mellitus with diabetic polyneuropathy (9) Malnutrition Status: Chronic Current Visit: Yes Code(s): E46 - Unspecified protein- calorie malnutrition (10) Obesity Status: Chronic Current Visit: Yes Code(s): E66.9 - Obesity, unspecified (11) Lower extremity edema Status: Chronic Current Visit: Yes Code(s): R60.0 - Localized edema Type of Wound Date of Service: 01/20/18 Chief Complaint: Right heel ulcer with delayed healing. 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 left lateral foot ulcer. right leg ulcers. right toe ulcer (second). lymphedema and continued leg swelling History of Wound: 62 year old male was seen for right heel ulcer with chronic osteomyelitis, left foot ulcers (two), and right ankle ulcer, leg ulcers and right toe ulcer. He denies fever, chill, nausea, vomiting. He has Regranex at home and home health has been helping when he has help available with the dressing changes. He uses the compession pump 2-3 times a day with significant edema reduction. He completed his vascular surgery angioplasty with Dr. Peng for the left lower extremity. He has a follow-up on February 06 and additional intervention on the right lower extremity will be considered. He has received treatment at the lymphedema clinic as well. He denies redness or odor. He denies redness odor or other illness. He is a CircAid compression wraps and still has trouble with swelling because the swelling extends beyond the level of this previous compression wrap. He obtained his new compression therapy wrap to the right lower extremity; this is not approved for the left lower extremity because he did not have an open leg ulcer site per insurance guidelines. Progress of Wound: improving - Physical Exam Vital Signs Temp Pulse Resp BP 97.1 F L 56 L 16 187/85 H 01/20/18 11:02 01/20/18 11:02 01/20/18 11:02 01/20/18 11:02 General: Alert, Oriented x3, Cooperative Extremities: No cyanosis, Capillary Refill Less than 3 Seconds, No Calf Te nderness - Negative Keara and Simmons sign bilateral, Diminished Peripheral Pulses, Edema - Bilateral lower extremities, - - Left transmetatarsal amputation Skin: Ulcer/ Wound - No purulence, erythema, streaking, odor, or infection bilateral. There is continue preferable the lid elevation noted, - - The peripheral skin is atrophic and hairless Wound Measurements and Assessment WC - Nurse 1 - General Ulcer Measurement Start: 01/20/18 11:01 Freq: Status: Active Protocol: Activity Type Activity Date Activity User E-Sign Co-Sign Detail Recorded Client Recorded Date Recorded By Document 01/20/18 11:02 [facility] [id number] 01/20/18 11:17 [facility] 01/20/18 11:02 Wound Center Nurse 1 [Ulcer Assessment] 18 R bernstein Cluster -Combined with other wound No -Current Size (cm) - Length 16.8 -Current Size (cm) - Width 7 -Current Size (cm) - Depth 0.1 -Total Square Cm 117.6 -Photo Taken No -Epithelialization None Present -Tunneling No -Undermining/Tunneling No -Circular Undermining No -Exudate Amt Small (1-33%) -Exudate Type Serosanguineous -Wound Margin Distinct, Outline Attached -Granulation Amt Medium (34-66%) -Granulation Quality Red -Slough/Fibrin Yes -Necrosis Amt Medium (34-66%) -Necrotic Tissue Type Adherent Slough -Texture (Susy-wound Skin Appearance) Scarring -Moisture (Susy-wound Skin Appearance Assessed ) Dry/Scaly -Color (Susy-wound Skin Appearance) Assessed Hemosiderin Staining -Temperature (Susy-wound Skin No Abnormality Appearance) (Pt Warm) -Tenderness on Palpation (Susy-wound No Skin Appearance) -Ulcer Cleansing Wound Cleanser -Foul Odor after Cleansing No -Anesthetic Used 4% Lidocaine Solution #15-LEFT LATERAL FOOT -Combined with other wound No -Current Size (cm) - Length 0.7 -Current Size (cm) - Width 0.5 -Current Size (cm) - Depth 0.2 -Total Square Cm 0.35 -Photo Taken No -Epithelialization Small 1-33% -Tunneling No -Undermining/Tunneling No -Circular Undermining No -Exudate Amt None Present (0 %) -Wound Margin Distinct, Outline Attached -Granulation Amt Large (67-100%) -Granulation Quality [place] -Slough/Fibrin No -Necrosis Amt None Present (0 %) -Texture (Susy-wound Skin Appearance) Scarring -Moisture (Susy-wound Skin Appearance Dry/Scaly ) -Color (Susy-wound Skin Appearance) Assessed -Temperature (Susy-wound Skin No Abnormality Appearance) (Pt Warm) -Tenderness on Palpation (Susy-wound No Skin Appearance) -Ulcer Cleansing Wound Cleanser -Foul Odor after Cleansing No -Anesthetic Used 4% Lidocaine Solution #17-right 2nd toe -Combined with other wound No -Current Size (cm) - Length 0.1 -Current Size (cm) - Width 0.1 -Current Size (cm) - Depth 0.1 -Total Square Cm 0.01 -Photo Taken No -Epithelialization None Present -Tunneling No -Undermining/Tunneling No -Circular Undermining No -Exudate Amt None Present (0 %) -Granulation Amt None Present (0 %) -Slough/Fibrin Yes -Necrosis Amt Large (67-100%) -Necrotic Tissue Type Eschar -Texture (Susy-wound Skin Appearance) Scarring -Moisture (Susy-wound Skin Appearance Dry/Scaly ) -Color (Susy-wound Skin Appearance) Assessed -Temperature (Susy-wound Skin No Abnormality Appearance) (Pt Warm) -Tenderness on Palpation (Susy-wound No Skin Appearance) -Ulcer Cleansing Wound Cleanser -Foul Odor after Cleansing No -Anesthetic Used 4% Lidocaine Solution #4 Left central TMA -Combined with other wound No -Current Size (cm) - Length 0.5 -Current Size (cm) - Width 0.2 -Current Size (cm) - Depth 0.2 -Total Square Cm 0.10 -Photo Taken No -Epithelialization Small 1-33% -Tunneling No -Undermining/Tunneling No -Circular Undermining No -Exudate Amt None Present (0 %) -Wound Margin Distinct, Outline Attached -Granulation Amt Large (67-100%) -Granulation Quality [place] -Slough/Fibrin No -Necrosis Amt None Present (0 %) -Texture (Susy-wound Skin Appearance) Scarring -Moisture (Susy-wound Skin Appearance Dry/Scaly ) -Color (Susy-wound Skin Appearance) Assessed -Temperature (Susy-wound Skin No Abnormality Appearance) (Pt Warm) -Tenderness on Palpation (Susy-wound No Skin Appearance) -Ulcer Cleansing Wound Cleanser -Foul Odor after Cleansing No -Anesthetic Used 4% Lidocaine Solution #1 right medial heel -Combined with other wound No -Current Size (cm) - Length 1 -Current Size (cm) - Width 1.4 -Current Size (cm) - Depth 0.3 -Total Square Cm 1.4 -Photo Taken No -Epithelialization Small 1-33% -Tunneling No -Undermining/Tunneling No -Circular Undermining No -Exudate Amt Small (1-33%) -Exudate Type Serosanguineous -Wound Margin Distinct, Outline Attached -Granulation Amt Large (67-100%) -Granulation Quality [place] -Slough/Fibrin No -Necrosis Amt None Present (0 %) -Texture (Susy-wound Skin Appearance) Callus Scarring -Moisture (Susy-wound Skin Appearance Dry/Scaly ) -Color (Susy-wound Skin Appearance) Assessed -Temperature (Susy-wound Skin No Abnormality Appearance) (Pt Warm) -Tenderness on Palpation (Susy-wound No Skin Appearance) -Ulcer Cleansing Wound Cleanser -Foul Odor after Cleansing No -Anesthetic Used 4% Lidocaine Solution [Edema Assessment] -Lower Limb Edema Present Yes -Right Calf (cm) 50 -Right Ankle (cm) 28.7 -Left Calf (cm) 52 -Left Ankle (cm) 30.1 Musculoskeletal: No Tenderness to Palpation of Joints or Extremities, Muscle Wasting Neurological: - - Lack of epicritic sensation light touch bilateral lower extremities Psych/Mental Status: Normal Affect, Appropriate Debridement Note Wound debrided: heel Laterality: Right Wound Grade/Stage: grade 3 Type of Debridement: Excisional debridement Anesthesia Used: 4% Lidocaine Solution Depth: in the subcutaneous layer Percentage of wound debrided: 100 Instrument Used: #15 blade Tissue Removed: fibrous, devitalized subcutaneous, biofilm, slough Severity: Fat Layer Exposed Amount of bleeding with debridement: Mild Bleeding Controlled with: Pressure Patient tolerated procedure well - Additional Wound Wound debrided: leg cluster Laterality: Right Wound Grade/Stage: grade 1 Type of Debridement: Excisional debridement Anesthesia Used: 4% Lidocaine Solution Depth: in the subcutaneous layer Percentage of wound debrided: 10 Instrument Used: #15 blade Tissue Removed: fibrous, devitalized subcutaneous, biofilm, slough Severity: Fat Layer Exposed Amount of bleeding with debridement: Mild Bleeding Controlled with: Pressure Patient tolerated procedure: Patient tolerated procedure well - Additional Wound Wound debrided: central foot Laterality: Left Wound Grade/Stage: grade 1 Type of Debridement: Excisional debridement Anesthesia Used: 4% Lidocaine Solution Depth: in the subcutaneous layer Percentage of wound debrided: 100 Instrument Used: #15 blade Tissue Removed: fibrous, devitalized subcutaneous, biofilm, slough Severity: Fat Layer Exposed Amount of bleeding with debridement: Mild Bleeding Controlled with: Pressure Patient tolerated procedure: Patient tolerated procedure well - Additional Wound Wound debrided: lateral forefoot Laterality: Left Wound Grade/Stage: grade 1 Type of Debridement: Excisional debridement Anesthesia Used: 4% Lidocaine Solution Depth: in the subcutaneous layer Percentage of wound debrided: 100 Instrument Used: #15 blade Tissue Removed: fibrous, devitalized subcutaneous, biofilm, slough Severity: Fat Layer Exposed Amount of bleeding with debridement: Mild Bleeding Controlled with: Pressure Patient tolerated procedure: Patient tolerated procedure well Assessment/Plan Active Problems Lymphedema (Chronic) Venous insufficiency (Chronic) Peripheral vascular disease (Chronic) Ulcer of right foot with fat layer exposed (Chronic) Chronic ulcer of left foot with fat layer exposed (Chronic) Ulcer of right lower extremity with fat layer exposed (Chronic) Lower extremity edema (Chronic) Type 2 diabetes mellitus with diabetic polyneuropathy (Chronic) Malnutrition (Chronic) Obesity (Chronic) Lower extremity edema (Chronic) Assessment: Right heel ulcer with delayed healing lateral left foot ulcer healed. right 2nd toe ulcer healed today. 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 right leg ulcers. Left lateral foot ulcer, no infection. lymphedema and continued leg swelling. peripheral vacular disease. venous insufficiency Plan: I discussed his case and treatment plan. Subcutaneous excisional debridement to all bilateral ulcer sites performed today as noted in the clinical panel. He was reassured there are no local signs of infection noted today. It is noted he completed a full course of advanced wound care product, epifix,application. To apply Regranex to the ulcer sites 12 hours at she does get it put I noticed a lot better time when he is able to coordinate this with home health or family assistance. If lack of assistance is noted he can resume only [place] use. . To maintain improved skin integrity by applying lac hydrin lotion to both legs daily. Continue circaid wraps bilateral legs daily; it is okay to apply tubigrip prior to application of CircAid foot wrap to better keep his wound dressings in place. To continue compression pump device daily; he is doing well with this. To proceed as previously advised with his lymphedema follow-up as advised. He is discharged from the [facility] at this time. Farrow compression garments to promote improved continued edema management at a more proximal level was approved for right lower extremity use; to use as advised. It is noted he was not approved for the left lower extremity because he did not meet qualifying criteria of open left leg current ulcer site. To continue diuretic medications per primary care physician.To elevate legs at rest. Compliance is imperative and this was discussed again today. To continue with portion control for weight loss and proper glycemic control and nutritional supplementation to optimize healing. His hemoglobin A1c went from 9.0 to 7.4. To continue strict offloading to all these ulcer sites. To follow-up with Dr. Peng as advised. His recent vascular intervention in the left lower extremity is noted. All of his questions were answered. He understands he is still at risk for limb loss. To follow-up at the wound care center in 1 week or call sooner if he has any questions or concerns.
[2018-01-27 11:00] VITALS: BP 143/55; PULSE 51; RESP 20; TEMP 36.4
--- NOTE | 2018-01-27 12:32 | PN.PCM_ITS ---
(1) Chronic ulcer of left foot with fat layer exposed Status: Chronic Current Visit: Yes Code(s): L97.522 - Non-pressure chronic ulcer of other part of left foot with fat layer exposed (2) Ulcer of right foot with fat layer exposed Status: Chronic Current Visit: Yes Code(s): L97.512 - Non-pressure chronic ulcer of other part of right foot with fat layer exposed (3) Ulcer of right lower extremity with fat layer exposed Status: Chronic Current Visit: Yes Code(s): L97.912 - Non-pressure chronic ulcer of unspecified part of right lower leg with fat layer exposed (4) Lymphedema Status: Chronic Current Visit: Yes Code(s): I89.0 - Lymphedema, not elsewhere classified (5) Venous insufficiency Status: Chronic Current Visit: Yes Code(s): I87.2 - Venous insufficiency (chronic) (peripheral) (6) Peripheral vascular disease Status: Chronic Current Visit: Yes Code(s): I73.9 - Peripheral vascular disease, unspecified (7) Lower extremity edema Status: Chronic Current Visit: Yes Code(s): R60.0 - Localized edema (8) Type 2 diabetes mellitus with diabetic polyneuropathy Status: Chronic Current Visit: Yes Code(s): E11.42 - Type 2 diabetes mellitus with diabetic polyneuropathy (9) Malnutrition Status: Chronic Current Visit: Yes Code(s): E46 - Unspecified protein- calorie malnutrition (10) Obesity Status: Chronic Current Visit: Yes Code(s): E66.9 - Obesity, unspecified (11) Lower extremity edema Status: Chronic Current Visit: Yes Code(s): R60.0 - Localized edema Type of Wound Date of Service: 01/27/18 Chief Complaint: Right heel ulcer with delayed healing. 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 left lateral foot ulcer. right leg ulcers. right toe ulcer (second). lymphedema and continued leg swelling History of Wound: 62 year old male was seen for right heel ulcer with chronic osteomyelitis, left foot ulcers (two), and right ankle ulcer, leg ulcers and right toe ulcer. He denies fever, chill, nausea, vomiting. He has Regranex at home and home health has been helping when he has help available with the dressing changes. He uses the compession pump 2-3 times a day with significant edema reduction. He completed his vascular surgery angioplasty with Dr. Peng for the left lower extremity. He has a follow-up on February 06 and additional intervention on the right lower extremity will be considered. He has received treatment at the lymphedema clinic as well. He denies redness or odor. He denies redness odor or other illness. He is a CircAid compression wraps and still has trouble with swelling because the swelling extends beyond the level of this previous compression wrap. He obtained his new compression therapy wrap to the right lower extremity. Progress of Wound: improving - Physical Exam Vital Signs Temp Pulse Resp BP 97.5 F L 51 L 20 H 143/55 H 01/27/18 11:00 01/27/18 11:00 01/27/18 11:00 01/27/18 11:00 General: Alert, Oriented x3, Cooperative Extremities: No cyanosis, Capillary Refill Less than 3 Seconds, No Calf Tenderness - Negative Keara and Simmons signs Bilateral, Diminished Peripheral Pulses, Edema, - - Left transmetatarsal amputation Skin: Ulcer/ Wound - No purulence, erythema, streaking, odor, or infection bilateral. The peripheral skin is hairless and atrophic. Wound Measurements and Assessment WC - Nurse 1 - General Ulcer Measurement Start: 01/20/18 11:01 Freq: Status: Active Protocol: Activity Type Activity Date Activity User E-Sign Co-Sign Detail Recorded Client Recorded Date Recorded By Document 01/27/18 11:00 DL [id number] 01/27/18 11:17 DL 01/27/18 11:00 Wound Center Nurse 1 [Ulcer Assessment] 18 R bernstein Cluster -Current Size (cm) - Length 15.5 -Current Size (cm) - Width 5 -Current Size (cm) - Depth 0.1 -Total Square Cm 77.5 -Photo Taken No -Exudate Amt Small (1-33%) -Exudate Type Serosanguineous -Wound Margin Indistinct, Non -Visible -Granulation Amt Medium (34-66%) -Granulation Quality [place] Red -Necrosis Amt Medium (34-66%) -Necrotic Tissue Type Adherent Slough -Structure Exposed N/A -Texture (Susy-wound Skin Appearance) Localized Edema Scarring -Moisture (Susy-wound Skin Appearance Dry/Scaly ) -Color (Susy-wound Skin Appearance) Hemosiderin Staining -Temperature (Susy-wound Skin No Abnormality Appearance) (Pt Warm) -Tenderness on Palpation (Susy-wound No Skin Appearance) -Ulcer Cleansing Wound Cleanser -Foul Odor after Cleansing No -Anesthetic Used 4% Lidocaine Solution #15-LEFT LATERAL FOOT -Current Size (cm) - Length 0.5 -Current Size (cm) - Width 0.6 -Current Size (cm) - Depth 1 -Total Square Cm 0.30 -Photo Taken No -Exudate Amt None Present (0 %) -Wound Margin Distinct, Outline Attached -Granulation Amt Large (67-100%) -Granulation Quality Pale [place] -Necrosis Amt None Present (0 %) -Structure Exposed N/A -Texture (Susy-wound Skin Appearance) Scarring -Moisture (Susy-wound Skin Appearance Dry/Scaly ) -Color (Susy-wound Skin Appearance) Hemosiderin Staining -Temperature (Susy-wound Skin No Abnormality Appearance) (Pt Warm) -Ulcer Cleansing Wound Cleanser -Foul Odor after Cleansing No -Anesthetic Used 4% Lidocaine Solution #4 Left central TMA -Current Size (cm) - Length 0.5 -Current Size (cm) - Width 0.2 -Current Size (cm) - Depth 0.1 -Total Square Cm 0.10 -Photo Taken No -Exudate Amt None Present (0 %) -Wound Margin Flat & Intact -Granulation Amt Large (67-100%) -Granulation Quality [place] -Necrosis Amt None Present (0 %) -Structure Exposed N/A -Texture (Susy-wound Skin Appearance) Localized Edema Scarring -Moisture (Susy-wound Skin Appearance Dry/Scaly ) -Color (Susy-wound Skin Appearance) Hemosiderin Staining -Temperature (Susy-wound Skin No Abnormality Appearance) (Pt Warm) -Tenderness on Palpation (Susy-wound No Skin Appearance) -Ulcer Cleansing Wound Cleanser -Foul Odor after Cleansing No -Anesthetic Used 4% Lidocaine Solution #1 right medial heel -Current Size (cm) - Length 1.3 -Current Size (cm) - Width 0.8 -Current Size (cm) - Depth 0.3 -Total Square Cm 1.04 -Photo Taken No -Exudate Amt Small (1-33%) -Exudate Type Serosanguineous -Wound Margin Distinct, Outline Attached -Granulation Amt Large (67-100%) -Granulation Quality [place] -Necrosis Amt Small (1-33%) -Necrotic Tissue Type Adherent Slough -Structure Exposed N/A -Texture (Susy-wound Skin Appearance) Callus -Moisture (Susy-wound Skin Appearance Dry/Scaly ) -Color (Susy-wound Skin Appearance) Hemosiderin Staining -Temperature (Susy-wound Skin No Abnormality Appearance) (Pt Warm) -Tenderness on Palpation (Susy-wound No Skin Appearance) -Ulcer Cleansing Wound Cleanser -Foul Odor after Cleansing No -Anesthetic Used 4% Lidocaine Solution [Edema Assessment] -Right Calf (cm) 47.5 -Right Ankle (cm) 27.2 -Left Calf (cm) 51.7 -Left Ankle (cm) 28.5 WC - Nurse 2 - General Ulcer CM Notes Start: 01/20/18 11:01 Freq: Status: Active Protocol: Activity Type Activity Date Activity User E-Sign Co-Sign Detail Recorded Client Recorded Date Recorded By Document 01/27/18 11:43 NORRIS [id number] 01/27/18 11:45 NORRIS 01/27/18 11:43 Wound Center Nurse 2 [Procedure/Treatment] 18 R bernstein Cluster -Time 11:43 -Correct Patient Yes -Correct Side, Site, Position Yes -Correct Procedure Yes -Procedure Performed Yes -Type of Procedure Debridement -Clinical Debridement Subcutaneous -Post Debridement Size (cm) - Length 15.6 -Post Debridement Size (cm) - Width 5 -Post Debridement Size (cm) - Depth 0.1 -Total Square Cm 78.0 -Wound/Ulcer Outcome Not Healed -Ulcer Cleansing Rinsed/ Irrigated with Saline -Foul Odor after Cleansing No -Bioengineered Tissue No -Bleeding Controlled with Pressure -Treatment Response Procedure Tolerated Well #15-LEFT LATERAL FOOT -Time 11:43 -Correct Patient Yes -Correct Side, Site, Position Yes -Correct Procedure Yes -Procedure Performed Yes -Type of Procedure Debridement -Clinical Debridement Subcutaneous -Post Debridement Size (cm) - Length 0.6 -Post Debridement Size (cm) - Width 0.6 -Post Debridement Size (cm) - Depth 1.0 -Total Square Cm 0.36 -Wound/Ulcer Outcome Not Healed -Ulcer Cleansing Rinsed/ Irrigated with Saline -Foul Odor after Cleansing No -Bioengineered Tissue No -Bleeding Controlled with Pressure -Treatment Response Procedure Tolerated Well #4 Left central TMA -Time 11:44 -Correct Patient Yes -Correct Side, Site, Position Yes -Correct Procedure Yes -Procedure Performed Yes -Type of Procedure Debridement -Clinical Debridement Subcutaneous -Post Debridement Size (cm) - Length 0.5 -Post Debridement Size (cm) - Width 0.3 -Post Debridement Size (cm) - Depth 0.1 -Total Square Cm 0.15 -Wound/Ulcer Outcome Not Healed -Ulcer Cleansing Rinsed/ Irrigated with Saline -Foul Odor after Cleansing No -Bioengineered Tissue No -Bleeding Controlled with Pressure -Treatment Response Procedure Tolerated Well #1 right medial heel -Time 11:44 -Correct Patient Yes -Correct Side, Site, Position Yes -Correct Procedure Yes -Procedure Performed Yes -Type of Procedure Debridement -Clinical Debridement Subcutaneous -Post Debridement Size (cm) - Length 1.4 -Post Debridement Size (cm) - Width 0.8 -Post Debridement Size (cm) - Depth 0.3 -Total Square Cm 1.12 -Wound/Ulcer Outcome Not Healed -Ulcer Cleansing Rinsed/ Irrigated with Saline -Foul Odor after Cleansing No -Bioengineered Tissue No -Bleeding Controlled with Pressure -Treatment Response Procedure Tolerated Well [See Physician Procedure note for Specifics] Pain Scale: 0-10 Numeric [Pain] -Is Patient Pain Free? Yes Musculoskeletal: No Tenderness to Palpation of Joints or Extremities, Muscle Wasting, - Neurological: - - Lack of epicritic sensation light touch consistent with neuropathy bilateral lower extremities Psych/Mental Status: Normal Affect, Appropriate Debridement Note Post-Debridement Measurements/Treatment WC - Nurse 2 - General Ulcer CM Notes Start: 01/20/18 11:01 Freq: Status: Active Protocol: Activity Type Activity Date Activity User E-Sign Co-Sign Detail Recorded Client Recorded Date Recorded By Document 01/20/18 12:01 [id number] 01/20/18 12:04 TM Document 01/27/18 11:43 [id number] 01/27/18 11:45 NORRIS 01/20/18 01/27/18 12:01 11:43 Wound Center Nurse 2 18 R bernstein Cluster -Time 12:01 11:43 -Correct Patient Yes Yes -Correct Side, Site, Position Yes Yes -Correct Procedure Yes Yes -Procedure Performed Yes Yes -Type of Procedure Debridement Debridement -Clinical Debridement Subcutaneous Subcutaneous -Post Debridement Size (cm) - Length 16.9 15.6 -Post Debridement Size (cm) - Width 7.1 5 -Post Debridement Size (cm) - Depth 0.1 0.1 -Total Square Cm 119.99 78.0 -Wound/Ulcer Outcome Not Healed Not Healed -Ulcer Cleansing Rinsed/ Rinsed/ Irrigated with Irrigated with Saline Saline -Foul Odor after Cleansing No No -Bioengineered Tissue No No -Topical Lidocaine (%) 4 -Bleeding Controlled with Pressure Pressure -Treatment Response Procedure Procedure Tolerated Well Tolerated Well #15-LEFT LATERAL FOOT -Time 12:02 11:43 -Correct Patient Yes Yes -Correct Side, Site, Position Yes Yes -Correct Procedure Yes Yes -Procedure Performed Yes Yes -Type of Procedure Debridement Debridement -Clinical Debridement Subcutaneous Subcutaneous -Post Debridement Size (cm) - Length 0.8 0.6 -Post Debridement Size (cm) - Width 0.6 0.6 -Post Debridement Size (cm) - Depth 0.2 1.0 -Total Square Cm 0.48 0.36 -Wound/Ulcer Outcome Not Healed Not Healed -Ulcer Cleansing Rinsed/ Rinsed/ Irrigated with Irrigated with Saline Saline -Foul Odor after Cleansing No No -Bioengineered Tissue No No -Topical Lidocaine (%) 4 -Bleeding Controlled with Pressure Pressure -Treatment Response Procedure Procedure Tolerated Well Tolerated Well #17-right 2nd toe -Time 12:02 -Correct Patient Yes -Correct Side, Site, Position Yes -Correct Procedure Yes -Procedure Performed Yes -Post Debridement Size (cm) - Length 0 -Post Debridement Size (cm) - Width 0 -Post Debridement Size (cm) - Depth 0 -Total Square Cm 0 -Wound/Ulcer Outcome Healed- Epithelialized -Ulcer Cleansing Rinsed/ Irrigated with Saline -Foul Odor after Cleansing No -Bioengineered Tissue No -Bleeding Controlled with NA -Treatment Response Procedure Tolerated Well #4 Left central TMA -Time 12:02 11:44 -Correct Patient Yes Yes -Correct Side, Site, Position Yes Yes -Correct Procedure Yes Yes -Procedure Performed Yes Yes -Type of Procedure Debridement -Clinical Debridement Subcutaneous -Post Debridement Size (cm) - Length 0.5 0.5 -Post Debridement Size (cm) - Width 0.2 0.3 -Post Debridement Size (cm) - Depth 0.2 0.1 -Total Square Cm 0.10 0.15 -Wound/Ulcer Outcome Not Healed Not Healed -Ulcer Cleansing Rinsed/ Rinsed/ Irrigated with Irrigated with Saline Saline -Foul Odor after Cleansing No No -Bioengineered Tissue No No -Topical Lidocaine (%) 4 -Bleeding Controlled with NA Pressure -Other no debridement -Treatment Response Procedure Procedure Tolerated Well Tolerated Well #1 right medial heel -Time 12:03 11:44 -Correct Patient Yes Yes -Correct Side, Site, Position Yes Yes -Correct Procedure Yes Yes -Procedure Performed Yes Yes -Type of Procedure Debridement Debridement -Clinical Debridement Subcutaneous Subcutaneous -Post Debridement Size (cm) - Length 1.1 1.4 -Post Debridement Size (cm) - Width 1.5 0.8 -Post Debridement Size (cm) - Depth 0.3 0.3 -Total Square Cm 1.65 1.12 -Wound/Ulcer Outcome Not Healed Not Healed -Ulcer Cleansing Rinsed/ Rinsed/ Irrigated with Irrigated with Saline Saline -Foul Odor after Cleansing No No -Bioengineered Tissue No No -Topical Lidocaine (%) 4 -Bleeding Controlled with Pressure Pressure -Treatment Response Procedure Procedure Tolerated Well Tolerated Well Pain Scale: 0-10 Numeric Is Patient Pain Free? Yes Yes Wound debrided: leg cluster Laterality: Right Wound Grade/Stage: grade 1 Type of Debridement: Excisional debridement Depth: in the subcutaneous layer Percentage of wound debrided: - - 8 Instrument Used: #15 blade Tissue Removed: fibrous, devitalized subcutaneous, biofilm, slough Severity: Fat Layer Exposed Amount of bleeding with debridement: Mild Bleeding Controlled with: Pressure Patient tolerated procedure well - Additional Wound Wound debrided: heel Wound Grade/Stage: grade 3 Type of Debridement: Excisional debridement Anesthesia Used: 4% Lidocaine Solution Depth: in the subcutaneous layer Percentage of wound debrided: 100 Instrument Used: #15 blade Tissue Removed: fibrous, devitalized subcutaneous, biofilm, slough Severity: Fat Layer Exposed Amount of bleeding with debridement: Mild Bleeding Controlled with: Pressure Patient tolerated procedure: Patient tolerated procedure well - Additional Wound Wound debrided: central foot Laterality: Left Wound Grade/Stage: grade 1 Type of Debridement: Excisional debridement Anesthesia Used: 4% Lidocaine Solution Depth: in the subcutaneous layer Percentage of wound debrided: 100 Instrument Used: #15 blade Tissue Removed: fibrous, devitalized subcutaneous, biofilm, slough Severity: Fat Layer Exposed Amount of bleeding with debridement: Mild Bleeding Controlled with: Pressure Patient tolerated procedure: Patient tolerated procedure well - Additional Wound Wound debrided: lateral foot Laterality: Left Wound Grade/Stage: grade 1 Type of Debridement: Excisional debridement Anesthesia Used: 4% Lidocaine Solution Depth: in the subcutaneous layer Percentage of wound debrided: 100 Instrument Used: #15 blade Tissue Removed: fibrous, devitalized subcutaneous, biofilm, slough Severity: Fat Layer Exposed Amount of bleeding with debridement: Mild Bleeding Controlled with: Pressure Patient tolerated procedure: Patient tolerated procedure well Assessment/Plan Active Problems Lymphedema (Chronic) Venous insufficiency (Chronic) Peripheral vascular disease (Chronic) Ulcer of right foot with fat layer exposed (Chronic) Chronic ulcer of left foot with fat layer exposed (Chronic) Ulcer of right lower extremity with fat layer exposed (Chronic) Lower extremity edema (Chronic) Type 2 diabetes mellitus with diabetic polyneuropathy (Chronic) Malnutrition (Chronic) Obesity (Chronic) Lower extremity edema (Chronic) Assessment: Right heel ulcer with delayed healing lateral left foot ulcer healed. 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 right leg ulcers. Left lateral foot ulcer, no infection. lymphedema and continued leg swelling. peripheral vacular disease. venous insufficiency Plan: I discussed his case and treatment plan. Subcutaneous excisional debridement to all bilateral ulcer sites performed today as noted in the clinical panel. He was reassured there are no local signs of infection noted today. It is noted he completed a full course of advanced wound care product, epifix,application. To apply Regranex to the ulcer sites 12 hours at she does get it put I noticed a lot better time when he is able to coordinate this with home health or family assistance. If lack of assistance is noted he can resume only [place] use. . To maintain improved skin integrity by applying lac hydrin lotion to both legs daily. Continue circaid wraps bilateral legs daily; it is okay to apply tubigrip prior to application of CircAid foot wrap to better keep his wound dressings in place. To continue compression pump device daily; he is doing well with this. To proceed as previously advised with his lymphedema follow-up as advised. He is discharged from the [facility] at this time. [place]arrow compression garments to promote improved continued edema management at a more proximal level was approved for right lower extremity use; to use as advised. It is noted he was not approved for the left lower extremity because he did not meet qualifying criteria of open left leg current ulcer site. To continue diuretic medications per primary care physician.To elevate legs at rest. Compliance is imperative and this was discussed again today. To continue with portion control for weight loss and proper glycemic control and nutritional supplementation to optimize healing. His hemoglobin A1c went from 9.0 to 7.4. To continue strict offloading to all these ulcer sites. To follow- up with Dr. Peng as advised. His recent vascular intervention in the left lower extremity is noted. All of his questions were answered. He understands he is still at risk for limb loss. To follow-up at the wound care center in 1 week or call sooner if he has any questions or concerns.
[2018-02-03 11:05] VITALS: BP 152/80; PULSE 48; RESP 16; TEMP 36.1
--- NOTE | 2018-02-03 11:37 | PN.PCM_ITS ---
(1) Chronic ulcer of left foot with fat layer exposed Status: Chronic Code(s): L97.522 - Non-pressure chronic ulcer of other part of left foot with fat layer exposed (2) Ulcer of right foot with fat layer exposed Status: Chronic Code(s): L97.512 - Non-pressure chronic ulcer of other part of right foot with fat layer exposed (3) Ulcer of right lower extremity with fat layer exposed Status: Resolved Code(s): L97.912 - Non-pressure chronic ulcer of unspecified part of right lower leg with fat layer exposed (4) Lymphedema Status: Chronic Code(s): I89.0 - Lymphedema, not elsewhere classified (5) Venous insufficiency Status: Chronic Code(s): I87.2 - Venous insufficiency (chronic) (peripheral) (6) Peripheral vascular disease Status: Chronic Code(s): I73.9 - Peripheral vascular disease, unspecified (7) Lower extremity edema Status: Chronic Code(s): R60.0 - Localized edema (8) Type 2 diabetes mellitus with diabetic polyneuropathy Status: Chronic Code(s): E11.42 - Type 2 diabetes mellitus with diabetic polyneuropathy (9) Malnutrition Status: Chronic Code(s): E46 - Unspecified protein-calorie malnutrition (10) Obesity Status: Chronic Code(s): E66.9 - Obesity, unspecified (11) Lower extremity edema Status: Chronic Code(s): R60.0 - Localized edema Type of Wound Date of Service: 02/03/18 Chief Complaint: Right heel ulcer with delayed healing. 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 left lateral foot ulcer. right leg ulcers healed. lymphedema and continued leg swelling History of Wound: 62 year old male was seen for right heel ulcer with chronic osteomyelitis, left foot ulcers (two). He denies fever, chill, nausea, vomiting. He has Regranex at home and home health has been helping when he has help available with the dressing changes. He uses the compession pump 2-3 times a day with significant edema reduction. He completed his vascular surgery angioplasty with Dr. Peng for the left lower extremity. He has a follow-up on February 06 and additional intervention on the right lower extremity will be considered. He has received treatment at the lymphedema clinic as well. He denies redness or odor. He denies redness odor or other illness. He is a CircAid compression wraps and still has trouble with swelling because the swelling extends beyond the level of this previous compression wrap. He obtained his new compression therapy wrap to the right lower extremity. He is followed with Dr. Peng as advised and now has bilateral venous procedures planned in the near future. Progress of Wound: improving - Physical Exam Vital Signs Temp Pulse Resp BP 96.9 F L 48 L 16 152/80 H 02/03/18 11:05 02/03/18 11:05 02/03/18 11:05 02/03/18 11:05 General: Alert, Oriented x3, Cooperative Extremities: No cyanosis, Capillary Refill Less than 3 Seconds, No Calf Tenderness - Negative [place] and patent bilateral, Diminished Peripheral Pulses, Edema - Bilateral lower extremity mild to moderate Skin: Ulcer/ Wound - Full epithelialization is noted to the previous right leg ulcer cluster site. There is no purulence, erythema, streaking, odor, deep tissue exposed, necrosis to bilateral ulcer sites. The peripheral skin is hairless and atrophic. Wound Measurements and Assessment WC - Nurse 1 - General Ulcer Measurement Start: 01/20/18 11:01 Freq: Status: Active Protocol: Activity Type Activity Date Activity User E-Sign Co-Sign Detail Recorded Client Recorded Date Recorded By Document 02/03/18 11: [facility] [id number] 02/03/18 11:12 [facility] 02/03/18 11:05 Wound Center Nurse 1 [Ulcer Assessment] 18 R bernstein Cluster -Combined with other wound No -Current Size (cm) - Length 0.7 -Current Size (cm) - Width 0.5 -Current Size (cm) - Depth 0.1 -Total Square Cm 0.35 -Photo Taken No -Epithelialization Medium 34-66% -Tunneling No -Undermining/Tunneling No -Circular Undermining No -Exudate Amt None Present (0 %) -Wound Margin Distinct, Outline Attached -Granulation Amt None Present (0 %) -Slough/Fibrin Yes -Necrosis Amt Large (67-100%) -Necrotic Tissue Type Adherent Slough -Texture (Susy-wound Skin Appearance) Scarring -Moisture (Susy-wound Skin Appearance Dry/Scaly ) -Color (Susy-wound Skin Appearance) Hemosiderin Staining -Temperature (Susy-wound Skin No Abnormality Appearance) (Pt Warm) -Tenderness on Palpation (Susy-wound No Skin Appearance) -Ulcer Cleansing Rinsed/ Irrigated with Saline -Foul Odor after Cleansing No -Anesthetic Used 4% Lidocaine Solution #15-LEFT LATERAL FOOT -Combined with other wound No -Current Size (cm) - Length 0.4 -Current Size (cm) - Width 0.6 -Current Size (cm) - Depth 0.2 -Total Square Cm 0.24 -Photo Taken No -Epithelialization None Present -Tunneling No -Undermining/Tunneling No -Circular Undermining No -Exudate Amt Small (1-33%) -Exudate Type Serosanguineous -Wound Margin Distinct, Outline Attached -Granulation Amt Large (67-100%) -Granulation Quality Red -Slough/Fibrin No -Necrosis Amt None Present (0 %) -Texture (Susy-wound Skin Appearance) Scarring -Moisture (Susy-wound Skin Appearance Dry/Scaly ) -Color (Susy-wound Skin Appearance) Assessed -Temperature (Susy-wound Skin No Abnormality Appearance) (Pt Warm) -Tenderness on Palpation (Susy-wound No Skin Appearance) -Ulcer Cleansing Rinsed/ Irrigated with Saline -Foul Odor after Cleansing No -Anesthetic Used 4% Lidocaine Solution #4 Left central TMA -Combined with other wound No -Current Size (cm) - Length 0.9 -Current Size (cm) - Width 0.3 -Current Size (cm) - Depth 0.2 -Total Square Cm 0.27 -Photo Taken No -Epithelialization Small 1-33% -Tunneling No -Undermining/Tunneling No -Circular Undermining No -Exudate Amt Small (1-33%) -Exudate Type Serosanguineous -Wound Margin Distinct, Outline Attached -Granulation Amt Large (67-100%) -Granulation Quality [place]ullos -Slough/Fibrin Yes -Necrosis Amt Small (1-33%) -Necrotic Tissue Type Adherent Slough -Texture (Susy-wound Skin Appearance) Scarring -Moisture (Susy-wound Skin Appearance Dry/Scaly ) -Color (Susy-wound Skin Appearance) Assessed -Temperature (Susy-wound Skin No Abnormality Appearance) (Pt Warm) -Tenderness on Palpation (Susy-wound No Skin Appearance) -Ulcer Cleansing Rinsed/ Irrigated with Saline -Foul Odor after Cleansing No -Anesthetic Used 4% Lidocaine Solution #1 right medial heel -Combined with other wound No -Current Size (cm) - Length 1.4 -Current Size (cm) - Width 0.9 -Current Size (cm) - Depth 0.2 -Total Square Cm 1.26 -Photo Taken No -Epithelialization Small 1-33% -Tunneling No -Undermining/Tunneling No -Circular Undermining No -Exudate Amt Small (1-33%) -Exudate Type Serosanguineous -Wound Margin Distinct, Outline Attached -Granulation Amt Large (67-100%) -Granulation Quality Red -Slough/Fibrin Yes -Necrosis Amt Small (1-33%) -Necrotic Tissue Type Adherent Slough -Texture (Susy-wound Skin Appearance) Scarring -Moisture (Susy-wound Skin Appearance Dry/Scaly ) -Color (Susy-wound Skin Appearance) Assessed -Temperature (Susy-wound Skin No Abnormality Appearance) (Pt Warm) -Tenderness on Palpation (Susy-wound No Skin Appearance) -Ulcer Cleansing Rinsed/ Irrigated with Saline -Foul Odor after Cleansing No -Anesthetic Used 4% Lidocaine Solution [Edema Assessment] -Lower Limb Edema Present Yes -Right Calf (cm) 49.5 -Right Ankle (cm) 28.5 -Left Calf (cm) 51.2 -Left Ankle (cm) 29.7 Musculoskeletal: No Tenderness to Palpation of Joints or Extremities, Muscle Wasting Neurological: - - Lack of epicritic sensation light touch bilateral lower extremities Psych/Mental Status: Normal Affect, Appropriate Debridement Note Post-Debridement Measurements/Treatment WC - Nurse 2 - General Ulcer CM Notes Start: 01/20/18 11:01 Freq: Status: Active Protocol: Activity Type Activity Date Activity User E-Sign Co-Sign Detail Recorded Client Recorded Date Recorded By Document 01/20/18 12:01 [id number] 01/20/18 12:04 TM Document 01/27/18 11:43 NORRIS [id number] 01/27/18 11:45 NORRIS 01/20/18 01/27/18 12:01 11:43 Wound Center Nurse 2 18 R bernstein Cluster -Time 12:01 11:43 -Correct Patient Yes Yes -Correct Side, Site, Position Yes Yes -Correct Procedure Yes Yes -Procedure Performed Yes Yes -Type of Procedure Debridement Debridement -Clinical Debridement Subcutaneous Subcutaneous -Post Debridement Size (cm) - Length 16.9 15.6 -Post Debridement Size (cm) - Width 7.1 5 -Post Debridement Size (cm) - Depth 0.1 0.1 -Total Square Cm 119.99 78.0 -Wound/Ulcer Outcome Not Healed Not Healed -Ulcer Cleansing Rinsed/ Rinsed/ Irrigated with Irrigated with Saline Saline -Foul Odor after Cleansing No No -Bioengineered Tissue No No -Topical Lidocaine (%) 4 -Bleeding Controlled with Pressure Pressure -Treatment Response Procedure Procedure Tolerated Well Tolerated Well #15-LEFT LATERAL FOOT -Time 12:02 11:43 -Correct Patient Yes Yes -Correct Side, Site, Position Yes Yes -Correct Procedure Yes Yes -Procedure Performed Yes Yes -Type of Procedure Debridement Debridement -Clinical Debridement Subcutaneous Subcutaneous -Post Debridement Size (cm) - Length 0.8 0.6 -Post Debridement Size (cm) - Width 0.6 0.6 -Post Debridement Size (cm) - Depth 0.2 1.0 -Total Square Cm 0.48 0.36 -Wound/Ulcer Outcome Not Healed Not Healed -Ulcer Cleansing Rinsed/ Rinsed/ Irrigated with Irrigated with Saline Saline -Foul Odor after Cleansing No No -Bioengineered Tissue No No -Topical Lidocaine (%) 4 -Bleeding Controlled with Pressure Pressure -Treatment Response Procedure Procedure Tolerated Well Tolerated Well #17-right 2nd toe -Time 12:02 -Correct Patient Yes -Correct Side, Site, Position Yes -Correct Procedure Yes -Procedure Performed Yes -Post Debridement Size (cm) - Length 0 -Post Debridement Size (cm) - Width 0 -Post Debridement Size (cm) - Depth 0 -Total Square Cm 0 -Wound/Ulcer Outcome Healed- Epithelialized -Ulcer Cleansing Rinsed/ Irrigated with Saline -Foul Odor after Cleansing No -Bioengineered Tissue No -Bleeding Controlled with NA -Treatment Response Procedure Tolerated Well #4 Left central TMA -Time 12:02 11:44 -Correct Patient Yes Yes -Correct Side, Site, Position Yes Yes -Correct Procedure Yes Yes -Procedure Performed Yes Yes -Type of Procedure Debridement -Clinical Debridement Subcutaneous -Post Debridement Size (cm) - Length 0.5 0.5 -Post Debridement Size (cm) - Width 0.2 0.3 -Post Debridement Size (cm) - Depth 0.2 0.1 -Total Square Cm 0.10 0.15 -Wound/Ulcer Outcome Not Healed Not Healed -Ulcer Cleansing Rinsed/ Rinsed/ Irrigated with Irrigated with Saline Saline -Foul Odor after Cleansing No No -Bioengineered Tissue No No -Topical Lidocaine (%) 4 -Bleeding Controlled with NA Pressure -Other no debridement -Treatment Response Procedure Procedure Tolerated Well Tolerated Well #1 right medial heel -Time 12:03 11:44 -Correct Patient Yes Yes -Correct Side, Site, Position Yes Yes -Correct Procedure Yes Yes -Procedure Performed Yes Yes -Type of Procedure Debridement Debridement -Clinical Debridement Subcutaneous Subcutaneous -Post Debridement Size (cm) - Length 1.1 1.4 -Post Debridement Size (cm) - Width 1.5 0.8 -Post Debridement Size (cm) - Depth 0.3 0.3 -Total Square Cm 1.65 1.12 -Wound/Ulcer Outcome Not Healed Not Healed -Ulcer Cleansing Rinsed/ Rinsed/ Irrigated with Irrigated with Saline Saline -Foul Odor after Cleansing No No -Bioengineered Tissue No No -Topical Lidocaine (%) 4 -Bleeding Controlled with Pressure Pressure -Treatment Response Procedure Procedure Tolerated Well Tolerated Well Pain Scale: 0-10 Numeric Is Patient Pain Free? Yes Yes Wound debrided: heel Laterality: Right Wound Grade/Stage: grade 3 Type of Debridement: Excisional debridement Anesthesia Used: 4% Lidocaine Solution Depth: in the subcutaneous layer Percentage of wound debrided: 100 Instrument Used: #15 blade Tissue Removed: fibrous, devitalized subcutaneous, biofilm, slough Severity: Fat Layer Exposed Amount of bleeding with debridement: Mild Bleeding Controlled with: Pressure Patient tolerated procedure well - Additional Wound Wound debrided: central TMA site Laterality: Left Wound Grade/Stage: grade 1 Type of Debridement: Excisional debridement Anesthesia Used: 4% Lidocaine Solution Depth: in the subcutaneous layer Percentage of wound debrided: 100 Instrument Used: #15 blade Tissue Removed: fibrous, devitalized subcutaneous, biofilm, slough Severity: Fat Layer Exposed Amount of bleeding with debridement: Mild Bleeding Controlled with: Pressure Patient tolerated procedure: Patient tolerated procedure well - Additional Wound Wound debrided: lateral foot Laterality: Left Wound Grade/Stage: grade 1 Type of Debridement: Excisional debridement Anesthesia Used: 4% Lidocaine Solution Depth: in the subcutaneous layer Percentage of wound debrided: 100 Instrument Used: #15 blade Tissue Removed: fibrous, devitalized subcutaneous, biofilm, slough Severity: Fat Layer Exposed Amount of bleeding with debridement: Mild Bleeding Controlled with: Pressure Patient tolerated procedure: Patient tolerated procedure well Assessment/Plan Assessment: Right heel ulcer with delayed healing lateral left foot ulcer healed. 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 right leg ulcers. Left lateral foot ulcer, no infection. lymphedema and continued leg swelling. peripheral vacular disease. venous insufficiency Plan: I discussed his case and treatment plan. Subcutaneous excisional debridement to all bilateral ulcer sites performed today as noted in the clinical panel. He was reassured there are no local signs of infection noted today. It is noted he completed a full course of advanced wound care product, epifix,application. To apply Regranex to the ulcer sites 12 hours at she does get it put I noticed a lot better time when he is able to coordinate this with home health or family assistance. If lack of assistance is noted he can resume only [place] use. . To maintain improved skin integrity by applying lac hydrin lotion to both legs daily. Continue circaid wraps bilateral legs daily; it is okay to apply tubigrip prior to application of CircAid foot wrap to better keep his wound dressings in place. To continue compression pump device daily; he is doing well with this. To proceed as previously advised with his lymphedema follow-up as advised. He is discharged from the [facility] at this time. [place]arrow compression garments to promote improved continued edema management at a more proximal level was approved for right lower extremity use; to use as advised. It is noted he was not approved for the left lower extremity because he did not meet qualifying criteria of open left leg current ulcer site. To continue diuretic medications per primary care physician.To elevate legs at rest. Compliance is imperative and this was discussed again today. To continue with portion control for weight loss and proper glycemic control and nutritional supplementation to optimize healing. His hemoglobin A1c went from 9.0 to 7.4. To continue strict offloading to all these ulcer sites. To follow-up with Dr. Peng as advised for the recommended bilateral intervention, venous. His recent vascular intervention in the left lower extremity is noted. All of his questions were answered. He understands he is still at risk for limb loss. To follow-up at the wound care center in 1 week or call sooner if he has any questions or concerns.
== END 2018-02-12 23:59 ==
LOC: WC 11:00
PROVIDERS: Family Provider Family Medicine; PCP Family Medicine; Referring Provider Podiatrist; Visit Provider Podiatrist
DX: E11.621 Type 2 diabetes mellitus with foot ulcer (principal); L97.522 Non-pressure chronic ulcer of other part of left foot with fat layer exposed; I89.0 Lymphedema, not elsewhere classified; E11.51 Type 2 diabetes mellitus with diabetic peripheral angiopathy without gangrene; R60.0 Localized edema; E11.42 Type 2 diabetes mellitus with diabetic polyneuropathy; L97.412 Non-pressure chronic ulcer of right heel and midfoot with fat layer exposed; L97.812 Non-pressure chronic ulcer of other part of right lower leg with fat layer exposed; L97.512 Non-pressure chronic ulcer of other part of right foot with fat layer exposed
CPT/HCPCS: 11042

== ENCOUNTER 2018-03-03 10:30 | Outpatient (RCR) | payer MEDICARE, MEDICAID, SELFPAY ==
[2017-12-22 10:48] VITALS: BMI 53.1
[2018-02-13 00:43] VITALS: BP 152/80; PULSE 48; RESP 16; TEMP 36.1
[2018-02-17 10:50] VITALS: RESP 16; TEMP 36.5; BMI 53.1
--- NOTE | 2018-02-17 13:44 | PCM.WC.PN ---
(1) Chronic ulcer of left foot with fat layer exposed Status: Chronic Code(s): L97.522 - Non-pressure chronic ulcer of other part of left foot with fat layer exposed (2) Ulcer of right foot with fat layer exposed Status: Chronic Code(s): L97.512 - Non-pressure chronic ulcer of other part of right foot with fat layer exposed (3) Venous insufficiency Status: Chronic Code(s): I87.2 - Venous insufficiency (chronic) (peripheral) (4) Obesity Status: Acute Code(s): E66.9 - Obesity, unspecified (5) Type 2 diabetes mellitus with diabetic polyneuropathy Status: Chronic Code(s): E11.42 - Type 2 diabetes mellitus with diabetic polyneuropathy Type of Wound Date of Service: 02/17/18 Chief Complaint: Right heel ulcer with delayed healing. 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 left lateral foot ulcer. right leg ulcers healed. lymphedema and continued leg swelling History of Wound: 62 year old male was seen for right heel ulcer with chronic osteomyelitis, left foot ulcers (two). He denies fever, chill, nausea, vomiting. He has Regranex at home and home health has been helping when he has help available with the dressing changes. He uses the compession pump 2-3 times a day with significant edema reduction. He completed his vascular surgery angioplasty with Dr. Peng for the left lower extremity. He has a follow-up on February 06 and additional intervention on the right lower extremity will be considered. He has received treatment at the lymphedema clinic as well. He denies redness or odor. He denies redness odor or other illness. He is a CircAid compression wraps and still has trouble with swelling because the swelling extends beyond the level of this previous compression wrap. He obtained his new compression therapy wrap to the right lower extremity. He is followed with Dr. Peng as advised and now has bilateral venous procedures planned in the near future. He did not obtain his Farrow compression dressing for the left lower extremity yet as previously advised. Progress of Wound: improving - Physical Exam Vital Signs Temp Pulse Resp BP 97.7 F L 48 L 16 152/80 H 02/17/18 10:50 02/13/18 00:43 02/17/18 10:50 02/13/18 00:43 General: Alert, Oriented x3, Cooperative Extremities: No cyanosis, Capillary Refill Less than 3 Seconds, No Calf Tenderness - Negative Keara and Simmons sign bilateral, Diminished Peripheral Pulses, Edema - Bilateral lower extremities Skin: Ulcer/ Wound - No purulence, erythema, streaking, odor, or infection bilateral. The peripheral skin is hairless and atrophic. Wound Measurements and Assessment WC - Nurse 1 - General Ulcer Measurement Start: 02/17/18 10:50 Freq: Status: Active Protocol: Activity Type Activity Date Activity User E-Sign Co-Sign Detail Recorded Client Recorded Date Recorded By Document 02/17/18 10:50 [email or web address] [id number] 02/17/18 11:02 BM 02/17/18 10:50 Wound Center Nurse 1 [Ulcer Assessment] #15-LEFT LATERAL FOOT -Combined with other wound No -Current Size (cm) - Length 0.6 -Current Size (cm) - Width 0.4 -Current Size (cm) - Depth 0.3 -Total Square Cm 0.24 -Photo Taken No -Epithelialization None Present -Tunneling No -Undermining/Tunneling No -Circular Undermining No -Exudate Amt Small (1-33%) -Exudate Type Serosanguineous -Wound Margin Flat & Intact -Granulation Amt Medium (34-66%) -Granulation Quality Pale -Slough/Fibrin Yes -Necrosis Amt Medium (34-66%) -Necrotic Tissue Type Adherent Slough -Structure Exposed N/A -Texture (Susy-wound Skin Appearance) Assessed Localized Edema Scarring -Moisture (Susy-wound Skin Appearance Assessed ) Maceration -Color (Susy-wound Skin Appearance) Assessed Hemosiderin Staining -Temperature (Susy-wound Skin No Abnormality Appearance) (Pt Warm) -Tenderness on Palpation (Susy-wound No Skin Appearance) -Ulcer Cleansing soap and water -Foul Odor after Cleansing No -Anesthetic Used 4% Lidocaine Solution #4 Left central TMA -Combined with other wound No -Current Size (cm) - Length 0.1 -Current Size (cm) - Width 0.1 -Current Size (cm) - Depth 0.1 -Total Square Cm 0.01 -Photo Taken No -Epithelialization Medium 34-66% -Tunneling No -Undermining/Tunneling No -Circular Undermining No -Exudate Amt None Present (0 %) -Wound Margin Flat & Intact -Granulation Amt None Present (0 %) -Granulation Quality N/A -Slough/Fibrin Yes -Necrosis Amt Small (1-33%) -Necrotic Tissue Type Adherent Slough -Structure Exposed N/A -Texture (Susy-wound Skin Appearance) Assessed Localized Edema Scarring -Moisture (Susy-wound Skin Appearance Assessed ) Dry/Scaly -Color (Susy-wound Skin Appearance) Assessed Hemosiderin Staining -Temperature (Susy-wound Skin No Abnormality Appearance) (Pt Warm) -Tenderness on Palpation (Susy-wound No Skin Appearance) -Ulcer Cleansing soap and water -Foul Odor after Cleansing No -Anesthetic Used 4% Lidocaine Solution #1 right medial heel -Combined with other wound No -Current Size (cm) - Length 0.8 -Current Size (cm) - Width 0.7 -Current Size (cm) - Depth 0.3 -Total Square Cm 0.56 -Photo Taken No -Epithelialization Small 1-33% -Tunneling No -Undermining/Tunneling No -Circular Undermining No -Exudate Amt Small (1-33%) -Exudate Type Serosanguineous -Wound Margin Flat & Intact -Granulation Amt Large (67-100%) -Granulation Quality [place] -Slough/Fibrin Yes -Necrosis Amt Small (1-33%) -Necrotic Tissue Type Adherent Slough -Structure Exposed N/A -Texture (Susy-wound Skin Appearance) Assessed Localized Edema Scarring -Moisture (Susy-wound Skin Appearance Assessed ) Dry/Scaly -Color (Susy-wound Skin Appearance) Assessed Hemosiderin Staining -Temperature (Susy-wound Skin No Abnormality Appearance) (Pt Warm) -Tenderness on Palpation (Susy-wound No Skin Appearance) -Ulcer Cleansing soap and water -Foul Odor after Cleansing No -Anesthetic Used 4% Lidocaine Solution [Edema Assessment] -Lower Limb Edema Present Yes -Right Calf (cm) 49.6 -Right Ankle (cm) 28.1 -Left Calf (cm) 51.4 -Left Ankle (cm) 28.7 WC - Nurse 2 - General Ulcer CM Notes Start: 02/17/18 10:50 Freq: Status: Active Protocol: Activity Type Activity Date Activity User E-Sign Co-Sign Detail Recorded Client Recorded Date Recorded By Document 02/17/18 11:16 TM [id number] 02/17/18 11:18 TM 02/17/18 11:16 Wound Center Nurse 2 [Procedure/Treatment] #15-LEFT LATERAL FOOT -Time 11:16 -Correct Patient Yes -Correct Side, Site, Position Yes -Correct Procedure Yes -Procedure Performed Yes -Type of Procedure Debridement -Clinical Debridement Subcutaneous -Post Debridement Size (cm) - Length 0.7 -Post Debridement Size (cm) - Width 0.5 -Post Debridement Size (cm) - Depth 0.3 -Total Square Cm 0.35 -Wound/Ulcer Outcome Not Healed -Ulcer Cleansing Rinsed/ Irrigated with Saline -Foul Odor after Cleansing No -Bioengineered Tissue No -Topical Lidocaine (%) 5 -Bleeding Controlled with Pressure -Offloading Yes -Type of Offloading Surgical Shoe -Treatment Response Procedure Tolerated Well #4 Left central TMA -Time 11:16 -Correct Patient Yes -Correct Side, Site, Position Yes -Correct Procedure Yes -Procedure Performed Yes -Post Debridement Size (cm) - Length 0 -Post Debridement Size (cm) - Width 0 -Post Debridement Size (cm) - Depth 0 -Total Square Cm 0 -Wound/Ulcer Outcome Healed- Epithelialized -Ulcer Cleansing Rinsed/ Irrigated with Saline -Foul Odor after Cleansing No -Bioengineered Tissue No -Topical Lidocaine (%) 5 -Bleeding Controlled with NA -Offloading Yes -Type of Offloading Surgical Shoe -Treatment Response Procedure Tolerated Well #1 right medial heel -Time 11:17 -Correct Patient Yes -Correct Side, Site, Position Yes -Correct Procedure Yes -Procedure Performed Yes -Type of Procedure Debridement -Clinical Debridement Subcutaneous -Post Debridement Size (cm) - Length 0.9 -Post Debridement Size (cm) - Width 0.8 -Post Debridement Size (cm) - Depth 0.3 -Total Square Cm 0.72 -Wound/Ulcer Outcome Not Healed -Ulcer Cleansing Rinsed/ Irrigated with Saline -Foul Odor after Cleansing No -Bioengineered Tissue No -Topical Lidocaine (%) 5 -Bleeding Controlled with Pressure -Offloading Yes -Type of Offloading Surgical Shoe -Treatment Response Procedure Tolerated Well [See Physician Procedure note for Specifics] Pain Scale: 0-10 Numeric [Pain] -Is Patient Pain Free? Yes Musculoskeletal: No Tenderness to Palpation of Joints or Extremities, Muscle Wasting Neurological: - - Lack of epicritic sensation to light touch bilateral lower extremities Psych/Mental Status: Normal Affect, Appropriate Debridement Note Post-Debridement Measurements/Treatment WC - Nurse 2 - General Ulcer CM Notes Start: 02/17/18 10:50 Freq: Status: Active Protocol: Activity Type Activity Date Activity User E-Sign Co-Sign Detail Recorded Client Recorded Date Recorded By Document 02/17/18 11:16 TM [id number] 02/17/18 11:18 TM 02/17/18 11:16 Wound Center Nurse 2 #15-LEFT LATERAL FOOT -Time 11:16 -Correct Patient Yes -Correct Side, Site, Position Yes -Correct Procedure Yes -Procedure Performed Yes -Type of Procedure Debridement -Clinical Debridement Subcutaneous -Post Debridement Size (cm) - Length 0.7 -Post Debridement Size (cm) - Width 0.5 -Post Debridement Size (cm) - Depth 0.3 -Total Square Cm 0.35 -Wound/Ulcer Outcome Not Healed -Ulcer Cleansing Rinsed/ Irrigated with Saline -Foul Odor after Cleansing No -Bioengineered Tissue No -Topical Lidocaine (%) 5 -Bleeding Controlled with Pressure -Offloading Yes -Type of Offloading Surgical Shoe -Treatment Response Procedure Tolerated Well #4 Left central TMA -Time 11:16 -Correct Patient Yes -Correct Side, Site, Position Yes -Correct Procedure Yes -Procedure Performed Yes -Post Debridement Size (cm) - Length 0 -Post Debridement Size (cm) - Width 0 -Post Debridement Size (cm) - Depth 0 -Total Square Cm 0 -Wound/Ulcer Outcome Healed- Epithelialized -Ulcer Cleansing Rinsed/ Irrigated with Saline -Foul Odor after Cleansing No -Bioengineered Tissue No -Topical Lidocaine (%) 5 -Bleeding Controlled with NA -Offloading Yes -Type of Offloading Surgical Shoe -Treatment Response Procedure Tolerated Well #1 right medial heel -Time 11:17 -Correct Patient Yes -Correct Side, Site, Position Yes -Correct Procedure Yes -Procedure Performed Yes -Type of Procedure Debridement -Clinical Debridement Subcutaneous -Post Debridement Size (cm) - Length 0.9 -Post Debridement Size (cm) - Width 0.8 -Post Debridement Size (cm) - Depth 0.3 -Total Square Cm 0.72 -Wound/Ulcer Outcome Not Healed -Ulcer Cleansing Rinsed/ Irrigated with Saline -Foul Odor after Cleansing No -Bioengineered Tissue No -Topical Lidocaine (%) 5 -Bleeding Controlled with Pressure -Offloading Yes -Type of Offloading Surgical Shoe -Treatment Response Procedure Tolerated Well Pain Scale: 0-10 Numeric Is Patient Pain Free? Yes Wound debrided: heel Laterality: Right Wound Grade/Stage: grade 3 Type of Debridement: Excisional debridement Anesthesia Used: 5% Lidocaine Gel Depth: in the subcutaneous layer Percentage of wound debrided: 100 Instrument Used: #15 blade Tissue Removed: fibrous, devitalized subcutaneous, biofilm, slough Severity: Fat Layer Exposed Amount of bleeding with debridement: Mild Bleeding Controlled with: Pressure Patient tolerated procedure well - Additional Wound Wound debrided: lateral foot Laterality: Left Wound Grade/Stage: grade 1 Type of Debridement: Excisional debridement Anesthesia Used: 5% Lidocaine Gel Depth: in the subcutaneous layer Percentage of wound debrided: 100 Instrument Used: #15 blade Tissue Removed: fibrous, devitalized subcutaneous, biofilm, slough Severity: Fat Layer Exposed Amount of bleeding with debridement: Mild Bleeding Controlled with: Pressure Patient tolerated procedure: Patient tolerated procedure well Assessment/Plan Assessment: Right heel ulcer with delayed healing lateral left foot ulcer healed. s/p left foot with ulcers at transmetatarsal amputation site healed. right leg ulcers healed. Left lateral foot ulcer, no infection. lymphedema and continued leg swelling. peripheral vacular disease. venous insufficiency Plan: I discussed his case and treatment plan. Subcutaneous excisional debridement to all bilateral ulcer sites performed today as noted in the clinical panel. He was reassured there are no local signs of infection noted today. It is noted he completed a full course of advanced wound care product, epifix,application. To apply Regranex to the ulcer sites 12 hours at she does get it put I noticed a lot better time when he is able to coordinate this with home health or family assistance. If lack of assistance is noted he can resume only [place] use. . To maintain improved skin integrity by applying lac hydrin lotion to both legs daily. Continue circaid wraps bilateral legs daily; it is okay to apply tubigrip prior to application of CircAid foot wrap to better keep his wound dressings in place. To continue compression pump device daily; he is doing well with this. To proceed as previously advised with his lymphedema follow-up as advised. He is discharged from the [facility] at this time. Farrow compression garments to promote improved continued edema management at a more proximal level was approved for right lower extremity use; to use as advised. It is noted he was not approved for the left lower extremity because he did not meet qualifying criteria of open left leg current ulcer site. To continue diuretic medications per primary care physician.To elevate legs at rest. Compliance is imperative and this was discussed again today. To continue with portion control for weight loss and proper glycemic control and nutritional supplementation to optimize healing. His hemoglobin A1c went from 9.0 to 7.4. To continue strict offloading to all these ulcer sites. To follow-up with Dr. Peng as advised for the recommended bilateral intervention, venous. His recent vascular intervention in the left lower extremity is noted. All of his questions were answered. He understands he is still at risk for limb loss. To follow-up at the wound care center in 1 week or call sooner if he has any questions or concerns.
[2018-02-24 10:58] VITALS: BP 159/65; PULSE 49; RESP 16; TEMP 36.6; BMI 53.1
--- NOTE | 2018-02-24 13:34 | PCM.WC.PN ---
(1) Chronic ulcer of left foot with fat layer exposed Status: Chronic Current Visit: Yes Code(s): L97.522 - Non-pressure chronic ulcer of other part of left foot with fat layer exposed (2) Ulcer of right foot with fat layer exposed Status: Chronic Current Visit: Yes Code(s): L97.512 - Non-pressure chronic ulcer of other part of right foot with fat layer exposed (3) Venous insufficiency Status: Chronic Current Visit: Yes Code(s): I87.2 - Venous insufficiency (chronic) (peripheral) (4) Obesity Status: Acute Current Visit: Yes Code(s): E66.9 - Obesity, unspecified (5) Type 2 diabetes mellitus with diabetic polyneuropathy Status: Chronic Current Visit: Yes Code(s): E11.42 - Type 2 diabetes mellitus with diabetic polyneuropathy Type of Wound Chief Complaint: Right heel ulcer with delayed healing. 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 left lateral foot ulcer. right leg ulcers healed. lymphedema and continued leg swelling History of Wound: 62 year old male was seen for right heel ulcer with chronic osteomyelitis, left foot ulcers (two). He denies fever, chill, nausea, vomiting. He has Regranex at home and home health has been helping when he has help available with the dressing changes. He uses the compession pump 2-3 times a day with significant edema reduction. He completed his vascular surgery angioplasty with Dr. Peng for the left lower extremity. He has a follow-up on February 06 and additional intervention on the right lower extremity will be considered. He has received treatment at the lymphedema clinic as well. He denies redness or odor. He denies redness odor or other illness. He is a CircAid compression wraps and still has trouble with swelling because the swelling extends beyond the level of this previous compression wrap. He obtained his new compression therapy wrap to the right lower extremity. He is followed with Dr. Peng as advised and now has bilateral venous procedures planned in the near future. He did not obtain his Farrow compression dressing for the left lower extremity yet as previously advised. Progress of Wound: improving - Physical Exam Vital Signs Temp Pulse Resp BP 97.8 F 49 L 16 159/65 H 02/24/18 10:58 02/24/18 10:58 02/24/18 10:58 02/24/18 10:58 General: Alert, Oriented x3, Cooperative Extremities: No cyanosis, Capillary Refill Less than 3 Seconds, No Calf Tenderness - Negative Keara and Simmons sign bilateral, Diminished Peripheral Pulses, Edema - Bilateral lower extremities, - - Left transmetatarsal amputation site Skin: Ulcer/ Wound - No pain, erythema, streaking, odor, or infection bilateral lower extremities., - - There is some skin discontinuity to the central TMA site that has returned to the left lower extremity this very superficial Wound Measurements and Assessment WC - Nurse 1 - General Ulcer Measurement Start: 02/17/18 10:50 Freq: Status: Active Protocol: Activity Type Activity Date Activity User E-Sign Co-Sign Detail Recorded Client Recorded Date Recorded By Document 02/24/18 10:58 [facility] [id number] 02/24/18 11:04 [facility] 02/24/18 10:58 Wound Center Nurse 1 [Ulcer Assessment] #15-LEFT LATERAL FOOT -Combined with other wound No -Current Size (cm) - Length 0.5 -Current Size (cm) - Width 0.5 -Current Size (cm) - Depth 0.1 -Total Square Cm 0.25 -Photo Taken No -Epithelialization Small 1-33% -Tunneling No -Undermining/Tunneling No -Circular Undermining No -Exudate Amt Small (1-33%) -Exudate Type Serosanguineous -Wound Margin Distinct, Outline Attached -Granulation Amt Medium (34-66%) -Granulation Quality [place] -Necrosis Amt Medium (34-66%) -Necrotic Tissue Type Adherent Slough -Texture (Susy-wound Skin Appearance) Scarring -Moisture (Susy-wound Skin Appearance Dry/Scaly ) -Color (Susy-wound Skin Appearance) Assessed -Temperature (Susy-wound Skin No Abnormality Appearance) (Pt Warm) -Tenderness on Palpation (Susy-wound No Skin Appearance) -Ulcer Cleansing Rinsed/ Irrigated with Saline -Foul Odor after Cleansing No -Anesthetic Used 5% Lidocaine Gel #1 right medial heel -Combined with other wound No -Current Size (cm) - Length 0.7 -Current Size (cm) - Width 1.1 -Current Size (cm) - Depth 0.1 -Total Square Cm 0.77 -Photo Taken No -Epithelialization Small 1-33% -Tunneling No -Undermining/Tunneling No -Circular Undermining No -Exudate Amt Small (1-33%) -Exudate Type Serosanguineous -Wound Margin Thickened & Rolled Under -Granulation Amt Large (67-100%) -Granulation Quality [place] -Slough/Fibrin Yes -Necrosis Amt Small (1-33%) -Necrotic Tissue Type Adherent Slough -Texture (Susy-wound Skin Appearance) Callus Scarring -Moisture (Susy-wound Skin Appearance Dry/Scaly ) -Color (Susy-wound Skin Appearance) Assessed -Temperature (Susy-wound Skin No Abnormality Appearance) (Pt Warm) -Tenderness on Palpation (Susy-wound No Skin Appearance) -Ulcer Cleansing Rinsed/ Irrigated with Saline -Foul Odor after Cleansing No -Anesthetic Used 5% Lidocaine Gel [Edema Assessment] -Lower Limb Edema Present Yes -Right Calf (cm) 52 -Right Ankle (cm) 28 -Left Calf (cm) 51 -Left Ankle (cm) 28.5 WC - Nurse 2 - General Ulcer CM Notes Start: 02/17/18 10:50 Freq: Status: Active Protocol: Activity Type Activity Date Activity User E-Sign Co-Sign Detail Recorded Client Recorded Date Recorded By Document 02/24/18 11:15 [id number] 02/24/18 11:22 [facility] 02/24/18 11:15 Wound Center Nurse 2 [Procedure/Treatment] #15-LEFT LATERAL FOOT -Time 11:16 -Correct Patient Yes -Correct Side, Site, Position Yes -Correct Procedure Yes -Procedure Performed Yes -Type of Procedure Debridement -Clinical Debridement Subcutaneous -Post Debridement Size (cm) - Length 0.5 -Post Debridement Size (cm) - Width 0.6 -Post Debridement Size (cm) - Depth 0.1 -Total Square Cm 0.30 -Wound/Ulcer Outcome Not Healed -Ulcer Cleansing Rinsed/ Irrigated with Saline -Foul Odor after Cleansing No -Bioengineered Tissue No -Bleeding Controlled with Pressure -Offloading Yes -Type of Offloading Surgical Shoe -Treatment Response Procedure Tolerated Well #4 Left central TMA -Time 11:18 -Correct Patient Yes -Correct Side, Site, Position Yes -Correct Procedure Yes -Procedure Performed Yes -Type of Procedure Debridement -Clinical Debridement Subcutaneous -Post Debridement Size (cm) - Length 0.2 -Post Debridement Size (cm) - Width 0.3 -Post Debridement Size (cm) - Depth 0.2 -Total Square Cm 0.06 -Wound/Ulcer Outcome Not Healed -Ulcer Cleansing Rinsed/ Irrigated with Saline -Foul Odor after Cleansing No -Bioengineered Tissue No -Bleeding Controlled with Pressure -Offloading No -Type of Offloading Surgical Shoe -Treatment Response Procedure Tolerated Well #1 right medial heel -Time 11:16 -Correct Patient Yes -Correct Side, Site, Position Yes -Correct Procedure Yes -Procedure Performed Yes -Type of Procedure Debridement -Clinical Debridement Subcutaneous -Post Debridement Size (cm) - Length 0.8 -Post Debridement Size (cm) - Width 1.2 -Post Debridement Size (cm) - Depth 0.1 -Total Square Cm 0.96 -Wound/Ulcer Outcome Not Healed -Ulcer Cleansing Rinsed/ Irrigated with Saline -Foul Odor after Cleansing No -Bioengineered Tissue No -Bleeding Controlled with Pressure -Offloading Yes -Type of Offloading Surgical Shoe -Treatment Response Procedure Tolerated Well [See Physician Procedure note for Specifics] Pain Scale: 0-10 Numeric [Pain] -Is Patient Pain Free? Yes Musculoskeletal: No Tenderness to Palpation of Joints or Extremities, Muscle Wasting Neurological: - - Lack of epicritic sensation light touch bilateral lower extremities consistent with neuropathy Psych/Mental Status: Normal Affect, Appropriate Debridement Note Post-Debridement Measurements/Treatment WC - Nurse 2 - General Ulcer CM Notes Start: 02/17/18 10:50 Freq: Status: Active Protocol: Activity Type Activity Date Activity User E-Sign Co-Sign Detail Recorded Client Recorded Date Recorded By Document 02/17/18 11:16 [id number] 02/17/18 11:18 Document 02/24/18 11:15 [id number] 02/24/18 11:22 02/17/18 02/24/18 11:16 11:15 Wound Center Nurse 2 #15-LEFT LATERAL FOOT -Time 11:16 11:16 -Correct Patient Yes Yes -Correct Side, Site, Position Yes Yes -Correct Procedure Yes Yes -Procedure Performed Yes Yes -Type of Procedure Debridement Debridement -Clinical Debridement Subcutaneous Subcutaneous -Post Debridement Size (cm) - Length 0.7 0.5 -Post Debridement Size (cm) - Width 0.5 0.6 -Post Debridement Size (cm) - Depth 0.3 0.1 -Total Square Cm 0.35 0.30 -Wound/Ulcer Outcome Not Healed Not Healed -Ulcer Cleansing Rinsed/ Rinsed/ Irrigated with Irrigated with Saline Saline -Foul Odor after Cleansing No No -Bioengineered Tissue No No -Topical Lidocaine (%) 5 -Bleeding Controlled with Pressure Pressure -Offloading Yes Yes -Type of Offloading Surgical Shoe Surgical Shoe -Treatment Response Procedure Procedure Tolerated Well Tolerated Well #4 Left central TMA -Time 11:16 11:18 -Correct Patient Yes Yes -Correct Side, Site, Position Yes Yes -Correct Procedure Yes Yes -Procedure Performed Yes Yes -Type of Procedure Debridement -Clinical Debridement Subcutaneous -Post Debridement Size (cm) - Length 0 0.2 -Post Debridement Size (cm) - Width 0 0.3 -Post Debridement Size (cm) - Depth 0 0.2 -Total Square Cm 0 0.06 -Wound/Ulcer Outcome Healed- Not Healed Epithelialized -Ulcer Cleansing Rinsed/ Rinsed/ Irrigated with Irrigated with Saline Saline -Foul Odor after Cleansing No No -Bioengineered Tissue No No -Topical Lidocaine (%) 5 -Bleeding Controlled with NA Pressure -Offloading Yes No -Type of Offloading Surgical Shoe Surgical Shoe -Treatment Response Procedure Procedure Tolerated Well Tolerated Well #1 right medial heel -Time 11:17 11:16 -Correct Patient Yes Yes -Correct Side, Site, Position Yes Yes -Correct Procedure Yes Yes -Procedure Performed Yes Yes -Type of Procedure Debridement Debridement -Clinical Debridement Subcutaneous Subcutaneous -Post Debridement Size (cm) - Length 0.9 0.8 -Post Debridement Size (cm) - Width 0.8 1.2 -Post Debridement Size (cm) - Depth 0.3 0.1 -Total Square Cm 0.72 0.96 -Wound/Ulcer Outcome Not Healed Not Healed -Ulcer Cleansing Rinsed/ Rinsed/ Irrigated with Irrigated with Saline Saline -Foul Odor after Cleansing No No -Bioengineered Tissue No No -Topical Lidocaine (%) 5 -Bleeding Controlled with Pressure Pressure -Offloading Yes Yes -Type of Offloading Surgical Shoe Surgical Shoe -Treatment Response Procedure Procedure Tolerated Well Tolerated Well Pain Scale: 0-10 Numeric Is Patient Pain Free? Yes Yes Wound debrided: heel Laterality: Right Wound Grade/Stage: grade 3 Type of Debridement: Excisional debridement Anesthesia Used: 5% Lidocaine Gel Depth: in the subcutaneous layer Percentage of wound debrided: 100 Instrument Used: #15 blade Tissue Removed: fibrous, devitalized subcutaneous, biofilm, slough Severity: Fat Layer Exposed Amount of bleeding with debridement: Mild Bleeding Controlled with: Pressure Patient tolerated procedure well No debridement was completed today - Additional Wound Wound debrided: lateral foot Laterality: Left Wound Grade/Stage: grade 1 Type of Debridement: Excisional debridement Anesthesia Used: 5% Lidocaine Gel Depth: in the subcutaneous layer Percentage of wound debrided: 100 Instrument Used: #15 blade Tissue Removed: fibrous, devitalized subcutaneous, biofilm, slough Severity: Fat Layer Exposed Amount of bleeding with debridement: Mild Bleeding Controlled with: Pressure Patient tolerated procedure: Patient tolerated procedure well Assessment/Plan Active Problems Venous insufficiency (Chronic) Ulcer of right foot with fat layer exposed (Chronic) Chronic ulcer of left foot with fat layer exposed (Chronic) Obesity (Acute) Type 2 diabetes mellitus with diabetic polyneuropathy (Chronic) Assessment: Right heel ulcer with delayed healing lateral left foot ulcer healed. s/p left foot with ulcers at transmetatarsal amputation site reopened. Left lateral foot ulcer, no infection. lymphedema and continued leg swelling. peripheral vacular disease. venous insufficiency Plan: I discussed his case and treatment plan. Subcutaneous excisional debridement to all bilateral ulcer sites performed today as noted in the clinical panel. He was reassured there are no local signs of infection noted today. It is noted he completed a full course of advanced wound care product, epifix,application. To apply Regranex to the ulcer sites 12 hours at she does get it put I noticed a lot better time when he is able to coordinate this with home health or family assistance. If lack of assistance is noted he can resume only [place] use. . To maintain improved skin integrity by applying lac hydrin lotion to both legs daily. Continue circaid wraps bilateral legs daily; it is okay to apply tubigrip prior to application of CircAid foot wrap to better keep his wound dressings in place. To continue compression pump device daily; he is doing well with this. To proceed as previously advised with his lymphedema follow-up as advised. He is discharged from the [facility] at this time. Farrow compression garments to promote improved continued edema management at a more proximal level was approved for right lower extremity use; to use as advised. It is noted he was not approved for the left lower extremity because he did not meet qualifying criteria of open left leg current ulcer site. To continue diuretic medications per primary care physician.To elevate legs at rest. Compliance is imperative and this was discussed again today. To continue with portion control for weight loss and proper glycemic control and nutritional supplementation to optimize healing. His hemoglobin A1c went from 9.0 to 7.4. To continue strict offloading to all these ulcer sites. To follow-up with Dr. Peng as advised for the recommended bilateral intervention, venous. His recent vascular intervention in the left lower extremity is noted. All of his questions were answered. He understands he is still at risk for limb loss. To follow-up at the wound care center in 1 week or call sooner if he has any questions or concerns.
[2018-03-03 10:37] VITALS: BP 155/73; PULSE 52; RESP 18; TEMP 36.8; BMI 53.1
--- NOTE | 2018-03-03 11:20 | PN.PCM_ITS ---
(1) Chronic ulcer of left foot with fat layer exposed Status: Chronic Current Visit: Yes Code(s): L97.522 - Non-pressure chronic ulcer of other part of left foot with fat layer exposed (2) Ulcer of right foot with fat layer exposed Status: Chronic Current Visit: Yes Code(s): L97.512 - Non-pressure chronic ulcer of other part of right foot with fat layer exposed (3) Venous insufficiency Status: Chronic Current Visit: Yes Code(s): I87.2 - Venous insufficiency (chronic) (peripheral) (4) Obesity Status: Acute Current Visit: Yes Code(s): E66.9 - Obesity, unspecified (5) Type 2 diabetes mellitus with diabetic polyneuropathy Status: Chronic Current Visit: Yes Code(s): E11.42 - Type 2 diabetes mellitus with diabetic polyneuropathy Type of Wound Date of Service: 03/03/18 Chief Complaint: Right heel ulcer with delayed healing. 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 left lateral foot ulcer. lymphedema and continued leg swelling History of Wound: 62 year old male was seen for right heel ulcer with chronic osteomyelitis, left foot ulcers (two). He denies fever, chill, nausea, vomiting. He has Regranex at home and home health has been helping when he has help available with the dressing changes. He uses the compession pump 2-3 times a day with significant edema reduction. He completed his vascular surgery angioplasty with Dr. Peng for the left lower extremity. He has received treatment at the lymphedema clinic as well. He denies redness or odor. He denies redness odor or other illness. He is a CircAid compression wraps and still has trouble with swelling because the swelling extends beyond the level of this previous compression wrap. He obtained his new compression therapy wrap to the right lower extremity. He is followed with Dr. Peng as advised and now colon s bilateral venous procedures planned in the near future. He did not obtain his Farrow compression dressing for the left lower extremity yet as previously advised. Progress of Wound: improving - Physical Exam Vital Signs Temp Pulse Resp BP 98.2 F 52 L 18 155/73 H 03/03/18 10:37 03/03/18 10:37 03/03/18 10:37 03/03/18 10:37 General: Alert, Oriented x3, Cooperative Extremities: No cyanosis, Capillary Refill Less than 3 Seconds, No Calf Tenderness - Negative Kear[place] and Simmons signs bilateral, Diminished Peripheral Pulses, Edema - Bilateral lower extremities Skin: Ulcer/ Wound - No purulence, erythema, streaking, odor, or infection bilateral lower extremities. Peripheral skin is hairless and atrophic. Peripheral epithelialization is noted to all sites. Wound Measurements and Assessment WC - Nurse 1 - General Ulcer Measurement Start: 02/17/18 10:50 Freq: Status: Active Protocol: Activity Type Activity Date Activity User E-Sign Co-Sign Detail Recorded Client Recorded Date Recorded By Document 03/03/18 10:37 DL [id number] 03/03/18 10:42 DL 03/03/18 10:37 Wound Center Nurse 1 [Ulcer Assessment] #15-LEFT LATERAL FOOT -Current Size (cm) - Length 0.4 -Current Size (cm) - Width 0.3 -Current Size (cm) - Depth 0.1 -Total Square Cm 0.12 -Photo Taken No -Exudate Amt None Present (0 %) -Wound Margin Flat & Intact -Granulation Amt Large (67-100%) -Granulation Quality [place] -Necrosis Amt None Present (0 %) -Structure Exposed N/A -Texture (Susy-wound Skin Appearance) Scarring -Moisture (Susy-wound Skin Appearance Dry/Scaly ) -Color (Susy-wound Skin Appearance) No Abnormality -Temperature (Susy-wound Skin No Abnormality Appearance) (Pt Warm) -Ulcer Cleansing Wound Cleanser -Foul Odor after Cleansing No -Anesthetic Used 4% Lidocaine Solution #4 Left central TMA -Current Size (cm) - Length 0.9 -Current Size (cm) - Width 0.1 -Current Size (cm) - Depth 0.1 -Total Square Cm 0.09 -Photo Taken No -Exudate Amt None Present (0 %) -Exudate Type Serosanguineous -Wound Margin Distinct, Outline Attached -Granulation Amt Large (67-100%) -Granulation Quality [place] -Necrosis Amt None Present (0 %) -Texture (Susy-wound Skin Appearance) Scarring -Moisture (Susy-wound Skin Appearance Dry/Scaly ) -Color (Susy-wound Skin Appearance) No Abnormality -Ulcer Cleansing Wound Cleanser -Foul Odor after Cleansing No -Anesthetic Used 4% Lidocaine Solution #1 right medial heel -Current Size (cm) - Length 0.7 -Current Size (cm) - Width 1.2 -Current Size (cm) - Depth 0.2 -Total Square Cm 0.84 -Photo Taken No -Exudate Amt Small (1-33%) -Exudate Type Serosanguineous -Wound Margin Distinct, Outline Attached -Granulation Amt Large (67-100%) -Granulation Quality Red -Necrosis Amt None Present (0 %) -Structure Exposed N/A -Texture (Susy-wound Skin Appearance) Scarring -Moisture (Susy-wound Skin Appearance Dry/Scaly ) -Color (Susy-wound Skin Appearance) No Abnormality Hemosiderin Staining -Ulcer Cleansing Wound Cleanser -Foul Odor after Cleansing No -Anesthetic Used 4% Lidocaine Solution [Edema Assessment] -Right Calf (cm) 47.6 -Right Ankle (cm) 27.7 -Left Calf (cm) 49.6 -Left Ankle (cm) 28.5 WC - Nurse 2 - General Ulcer CM Notes Start: 02/17/18 10:50 Freq: Status: Active Protocol: Activity Type Activity Date Activity User E-Sign Co-Sign Detail Recorded Client Recorded Date Recorded By Document 03/03/18 10:59 [id number] 03/03/18 11:01 NORRIS 03/03/18 10:59 Wound Center Nurse 2 [Procedure/Treatment] #15-LEFT LATERAL FOOT -Time 10:59 -Correct Patient Yes -Correct Side, Site, Position Yes -Correct Procedure Yes -Procedure Performed Yes -Type of Procedure Debridement -Clinical Debridement Subcutaneous -Post Debridement Size (cm) - Length 0.5 -Post Debridement Size (cm) - Width 0.3 -Post Debridement Size (cm) - Depth 0.1 -Total Square Cm 0.15 -Wound/Ulcer Outcome Not Healed -Ulcer Cleansing Rinsed/ Irrigated with Saline -Foul Odor after Cleansing No -Bioengineered Tissue No -Bleeding Controlled with Pressure -Offloading No -Treatment Response Procedure Tolerated Well #4 Left central TMA -Time 11:00 -Correct Patient Yes -Correct Side, Site, Position Yes -Correct Procedure Yes -Procedure Performed Yes -Type of Procedure Debridement -Clinical Debridement Subcutaneous -Post Debridement Size (cm) - Length 1 -Post Debridement Size (cm) - Width 0.1 -Post Debridement Size (cm) - Depth 0.1 -Total Square Cm 0.1 -Wound/Ulcer Outcome Not Healed -Ulcer Cleansing Rinsed/ Irrigated with Saline -Foul Odor after Cleansing No -Bioengineered Tissue No -Bleeding Controlled with Pressure -Offloading No -Treatment Response Procedure Tolerated Well #1 right medial heel -Time 11:00 -Correct Patient Yes -Correct Side, Site, Position Yes -Correct Procedure Yes -Procedure Performed Yes -Type of Procedure Debridement -Clinical Debridement Subcutaneous -Post Debridement Size (cm) - Length 0.8 -Post Debridement Size (cm) - Width 1.2 -Post Debridement Size (cm) - Depth 0.2 -Total Square Cm 0.96 -Wound/Ulcer Outcome Not Healed -Ulcer Cleansing Rinsed/ Irrigated with Saline -Foul Odor after Cleansing No -Bioengineered Tissue No -Bleeding Controlled with Pressure -Offloading No -Type of Offloading Surgical Shoe -Treatment Response Procedure Tolerated Well [See Physician Procedure note for Specifics] Pain Scale: 0-10 Numeric [Pain] -Is Patient Pain Free? Yes Musculoskeletal: No Tenderness to Palpation of Joints or Extremities, Muscle Wasting Neurological: - - Lack of epicritic sensation light touch bilateral lower extremities Psych/Mental Status: Normal Affect, Appropriate Debridement Note Post-Debridement Measurements/Treatment WC - Nurse 2 - General Ulcer CM Notes Start: 02/17/18 10:50 Freq: Status: Active Protocol: Activity Type Activity Date Activity User E-Sign Co-Sign Detail Recorded Client Recorded Date Recorded By Document 02/17/18 11:16 [id number] 02/17/18 11:18 Document 02/24/18 11:15 [id number] 02/24/18 11:22 Document 03/03/18 10:59 [id number] 03/03/18 11:01 02/17/18 02/24/18 03/03/18 11:16 11:15 10:59 Wound Center Nurse 2 #15-LEFT LATERAL FOOT -Time 11:16 11:16 10:59 -Correct Patient Yes Yes Yes -Correct Side, Site, Position Yes Yes Yes -Correct Procedure Yes Yes Yes -Procedure Performed Yes Yes Yes -Type of Procedure Debridement Debridement Debridement -Clinical Debridement Subcutaneous Subcutaneous Subcutaneous -Post Debridement Size (cm) - Length 0.7 0.5 0.5 -Post Debridement Size (cm) - Width 0.5 0.6 0.3 -Post Debridement Size (cm) - Depth 0.3 0.1 0.1 -Total Square Cm 0.35 0.30 0.15 -Wound/Ulcer Outcome Not Healed Not Healed Not Healed -Ulcer Cleansing Rinsed/ Rinsed/ Rinsed/ Irrigated with Irrigated with Irrigated with Saline Saline Saline -Foul Odor after Cleansing No No No -Bioengineered Tissue No No No -Topical Lidocaine (%) 5 -Bleeding Controlled with Pressure Pressure Pressure -Offloading Yes Yes No -Type of Offloading Surgical Shoe Surgical Shoe -Treatment Response Procedure Procedure Procedure Tolerated Well Tolerated Well Tolerated Well #4 Left central TMA -Time 11:16 11:18 11:00 -Correct Patient Yes Yes Yes -Correct Side, Site, Position Yes Yes Yes -Correct Procedure Yes Yes Yes -Procedure Performed Yes Yes Yes -Type of Procedure Debridement Debridement -Clinical Debridement Subcutaneous Subcutaneous -Post Debridement Size (cm) - Length 0 0.2 1 -Post Debridement Size (cm) - Width 0 0.3 0.1 -Post Debridement Size (cm) - Depth 0 0.2 0.1 -Total Square Cm 0 0.06 0.1 -Wound/Ulcer Outcome Healed- Not Healed Not Healed Epithelialized -Ulcer Cleansing Rinsed/ Rinsed/ Rinsed/ Irrigated with Irrigated with Irrigated with Saline Saline Saline -Foul Odor after Cleansing No No No -Bioengineered Tissue No No No -Topical Lidocaine (%) 5 -Bleeding Controlled with NA Pressure Pressure -Offloading Yes No No -Type of Offloading Surgical Shoe Surgical Shoe -Treatment Response Procedure Procedure Procedure Tolerated Well Tolerated Well Tolerated Well #1 right medial heel -Time 11:17 11:16 11:00 -Correct Patient Yes Yes Yes -Correct Side, Site, Position Yes Yes Yes -Correct Procedure Yes Yes Yes -Procedure Performed Yes Yes Yes -Type of Procedure Debridement Debridement Debridement -Clinical Debridement Subcutaneous Subcutaneous Subcutaneous -Post Debridement Size (cm) - Length 0.9 0.8 0.8 -Post Debridement Size (cm) - Width 0.8 1.2 1.2 -Post Debridement Size (cm) - Depth 0.3 0.1 0.2 -Total Square Cm 0.72 0.96 0.96 -Wound/Ulcer Outcome Not Healed Not Healed Not Healed -Ulcer Cleansing Rinsed/ Rinsed/ Rinsed/ Irrigated with Irrigated with Irrigated with Saline Saline Saline -Foul Odor after Cleansing No No No -Bioengineered Tissue No No No -Topical Lidocaine (%) 5 -Bleeding Controlled with Pressure Pressure Pressure -Offloading Yes Yes No -Type of Offloading Surgical Shoe Surgical Shoe Surgical Shoe -Treatment Response Procedure Procedure Procedure Tolerated Well Tolerated Well Tolerated Well Pain Scale: 0-10 Numeric Is Patient Pain Free? Yes Yes Yes Wound debrided: heel Laterality: Right Wound Grade/Stage: grade 3 Type of Debridement: Excisional debridement Anesthesia Used: 4% Lidocaine Solution Depth: in the subcutaneous layer Percentage of wound debrided: 100 Instrument Used: #15 blade Tissue Removed: fibrous, devitalized subcutaneous, biofilm, slough Severity: Fat Layer Exposed Amount of bleeding with debridement: Mild Bleeding Controlled with: Pressure Patient tolerated procedure well - Additional Wound Wound debrided: lateral foot Laterality: Left Wound Grade/Stage: grade 1 Type of Debridement: Excisional debridement Anesthesia Used: 5% Lidocaine Gel Depth: in the subcutaneous layer Percentage of wound debrided: 100 Instrument Used: #15 blade Tissue Removed: fibrous, devitalized subcutaneous, biofilm, slough Severity: Fat Layer Exposed Amount of bleeding with debridement: Mild Bleeding Controlled with: Pressure Patient tolerated procedure: Patient tolerated procedure well - Additional Wound Wound debrided: central stump on foot Laterality: Left Wound Grade/Stage: grade 1 Type of Debridement: Excisional debridement Anesthesia Used: 5% Lidocaine Gel Depth: in the subcutaneous layer Percentage of wound debrided: 100 Instrument Used: #15 blade Tissue Removed: fibrous, devitalized subcutaneous, biofilm, slough Severity: Fat Layer Exposed Amount of bleeding with debridement: Mild Bleeding Controlled with: Pressure Patient tolerated procedure: Patient tolerated procedure well Assessment/Plan Active Problems Venous insufficiency (Chronic) Ulcer of right foot with fat layer exposed (Chronic) Chronic ulcer of left foot with fat layer exposed (Chronic) Obesity (Acute) Type 2 diabetes mellitus with diabetic polyneuropathy (Chronic) Assessment: Right heel ulcer with delayed healing lateral left foot ulcer healed. 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 Left lateral foot ulcer, no infection. lymphedema and continued leg swelling. peripheral vacular disease. venous insufficiency Plan: I discussed his case and treatment plan. Subcutaneous excisional debridement to all bilateral ulcer sites performed today as noted in the clinical panel. He was reassured there are no local signs of infection noted today. It is noted he completed a full course of advanced wound care product, epifix,application. To apply Regranex to the ulcer sites 12 hours at she does get it put I noticed a lot better time when he is able to coordinate this with home health or family assistance. If lack of assistance is noted he can resume only [place] use. . To maintain improved skin integrity by applying lac hydrin lotion to both legs daily. Continue circaid wraps bilateral legs daily; it is okay to apply tubigrip prior to application of CircAid foot wrap to better keep his wound dressings in place. To continue compression pump device daily; he is doing well with this. To proceed as previously advised with his lymphedema follow-up as advised. He is discharged from the [facility] at this time. Farrow compression garments to promote improved continued edema management at a more proximal level was approved for right lower extremity use; to use as advised. It is noted he was not approved for the left lower extremity because he did not meet qualifying criteria of open left leg current ulcer site. To continue diuretic medications per primary care physician.To elevate legs at rest. Compliance is imperative and this was discussed again today. To continue with portion control for weight loss and proper glycemic control and nutritional supplementation to optimize healing. His hemoglobin A1c went from 9.0 to 7.4. To continue strict offloading to all these ulcer sites. To follow- up with Dr. Peng as advised for the recommended bilateral intervention, venous. His recent vascular intervention in the left lower extremity is noted. All of his questions were answered. He understands he is still at risk for limb loss. To follow-up at the wound care center in 1 week or call sooner if he has any questions or concerns.
== END 2018-03-15 23:59 ==
LOC: WC 10:30
PROVIDERS: Family Provider Family Medicine; PCP Family Medicine; Referring Provider Podiatrist; Visit Provider Podiatrist
DX: E11.621 Type 2 diabetes mellitus with foot ulcer (principal); L97.522 Non-pressure chronic ulcer of other part of left foot with fat layer exposed; L97.412 Non-pressure chronic ulcer of right heel and midfoot with fat layer exposed; E11.51 Type 2 diabetes mellitus with diabetic peripheral angiopathy without gangrene; E11.42 Type 2 diabetes mellitus with diabetic polyneuropathy; I89.0 Lymphedema, not elsewhere classified
CPT/HCPCS: 11042

== ENCOUNTER 2018-04-14 11:00 | Outpatient (RCR) | payer MEDICARE, MEDICAID, SELFPAY ==
[2018-03-16 00:36] VITALS: BP 155/73; PULSE 52; RESP 18; TEMP 36.8
[2018-03-24 11:04] VITALS: RESP 16; TEMP 36; BMI 53.1
--- NOTE | 2018-03-24 12:46 | PN.PCM_ITS ---
(1) Chronic ulcer of left foot with fat layer exposed Status: Chronic Current Visit: Yes Code(s): L97.522 - Non-pressure chronic ulcer of other part of left foot with fat layer exposed (2) Ulcer of right foot with fat layer exposed Status: Chronic Current Visit: Yes Code(s): L97.512 - Non-pressure chronic ulcer of other part of right foot with fat layer exposed (3) Lymphedema Status: Chronic Current Visit: Yes Code(s): I89.0 - Lymphedema, not elsewhere classified (4) Venous insufficiency Status: Chronic Current Visit: Yes Code(s): I87.2 - Venous insufficiency (chronic) (peripheral) (5) Lower extremity edema Status: Chronic Current Visit: Yes Code(s): R60.0 - Localized edema (6) Type 2 diabetes mellitus with diabetic polyneuropathy Status: Chronic Current Visit: Yes Code(s): E11.42 - Type 2 diabetes melli tus with diabetic polyneuropathy (7) Malnutrition Status: Chronic Current Visit: Yes Code(s): E46 - Unspecified protein- calorie malnutrition (8) Obesity Status: Chronic Current Visit: Yes Code(s): E66.9 - Obesity, unspecified Type of Wound Date of Service: 03/24/18 Chief Complaint: Right heel ulcer with delayed healing. 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 left lateral foot ulcer. lymphedema and continued leg swelling History of Wound: 62 year old male was seen for right heel ulcer with chronic osteomyelitis, left foot ulcers (two). He denies fever, chill, nausea, vomiting. He has Regranex at home and home health has been helping when he has help available with the dressing changes. He uses the compession pump 2-3 times a day with significant edema reduction. He completed his vascular surgery angioplasty with Dr. Peng for the left lower extremity. He has received treatment at the lymphedema clinic as well. He denies redness or odor. He denies redness odor or other illness. He is a CircAid compression wraps and still has trouble with swelling because the swelling extends beyond the level of this previous compression wrap. He is followed with Dr. Peng as advised and now has bilateral venous procedures planned in the near future. He is not able to come to his follow-up appointment next week due to a prior commitment. Progress of Wound: improving - Physical Exam Vital Signs Temp Pulse Resp BP 96.8 F L 52 L 16 155/73 H 03/24/18 11:04 03/16/18 00:36 03/24/18 11:04 03/16/18 00:36 General: Alert, Oriented x3, Cooperative Extremities: No cyanosis, Capillary Refill Less than 3 Seconds - All digits right foot and also to amputation stump site left foot, No Calf Tenderness - Negative Keara and Simmons bilateral, Diminished Peripheral Pulses, Edema - Bilateral lower extremities moderate but controlled, - - Left midfoot amputation stable Skin: Ulcer/ Wound - No purulence, erythema, streaking, odor, or infection bilateral. The peripheral skin is hairless and atrophic. There appears to be significant epithelialization to the central trans-metatarsal amputation stump site and he reports there is still weeping however no see this today during the exam. Wound Measurements and Assessment WC - Nurse 1 - General Ulcer Measurement Start: 03/24/18 11:04 Freq: Status: Active Protocol: Activity Type Activity Date Activity User E-Sign Co-Sign Detail Recorded Client Recorded Date Recorded By Document 03/24/18 11:04 [facility] [id number] 03/24/18 11:12 [facility] 03/24/18 11:04 Wound Center Nurse 1 [Ulcer Assessment] #15-LEFT LATERAL FOOT -Combined with other wound No -Current Size (cm) - Length 0.6 -Current Size (cm) - Width 0.3 -Current Size (cm) - Depth 0.4 -Total Square Cm 0.18 -Photo Taken No -Epithelialization None Present -Tunneling No -Undermining/Tunneling Yes -Undermining/Tunneling Starts (O' 1 clock) -Undermining/Tunneling Ends (O'clock) 4 -Maximum Distance (cm) 0.4 -Circular Undermining No -Exudate Amt Small -Exudate Type Serosanguineous -Wound Margin Thickened -Granulation Amt Small (1-33%) -Granulation Quality Red -Slough/Fibrin Yes -Necrosis Amt Large (67-100%) -Necrotic Tissue Type Adherent Slough -Texture (Susy-wound Skin Appearance) Callus Scarring -Moisture (Susy-wound Skin Appearance Dry/Scaly ) -Color (Susy-wound Skin Appearance) Assessed Erythema -Temperature (Susy-wound Skin No Abnormality Appearance) (Pt Warm) -Tenderness on Palpation (Susy-wound No Skin Appearance) -Ulcer Cleansing Rinsed/ Irrigated with Saline -Foul Odor after Cleansing No -Anesthetic Used 5% Lidocaine Gel #4 Left central TMA -Combined with other wound No -Current Size (cm) - Length 0.7 -Current Size (cm) - Width 0.2 -Current Size (cm) - Depth 0.2 -Total Square Cm 0.14 -Photo Taken No -Epithelialization Medium 34-66% -Tunneling No -Undermining/Tunneling No -Circular Undermining No -Exudate Amt Small -Exudate Type Serous -Wound Margin Distinct, Outline Attached -Granulation Amt Large (67-100%) -Granulation Quality [place] -Slough/Fibrin No -Necrosis Amt None Present (0 %) -Texture (Ssuy-wound Skin Appearance) Callus Scarring -Moisture (Susy-wound Skin Appearance Dry/Scaly ) -Color (Susy-wound Skin Appearance) Assessed -Temperature (Susy-wound Skin No Abnormality Appearance) (Pt Warm) -Tenderness on Palpation (Susy-wound No Skin Appearance) -Ulcer Cleansing Rinsed/ Irrigated with Saline -Foul Odor after Cleansing No -Anesthetic Used 5% Lidocaine Gel #1 right medial heel -Combined with other wound No -Current Size (cm) - Length 1.4 -Current Size (cm) - Width 0.7 -Current Size (cm) - Depth 0.3 -Total Square Cm 0.98 -Photo Taken No -Epithelialization Small 1-33% -Tunneling No -Undermining/Tunneling No -Circular Undermining No -Exudate Amt Small -Exudate Type Serosanguineous -Wound Margin Thickened -Granulation Amt Large (67-100%) -Granulation Quality Red -Slough/Fibrin No -Necrosis Amt None Present (0 %) -Texture (Susy-wound Skin Appearance) Callus Scarring -Moisture (Susy-wound Skin Appearance Dry/Scaly ) -Color (Susy-wound Skin Appearance) Palor -Temperature (Susy-wound Skin No Abnormality Appearance) (Pt Warm) -Tenderness on Palpation (Susy-wound No Skin Appearance) -Ulcer Cleansing Rinsed/ Irrigated with Saline -Foul Odor after Cleansing No -Anesthetic Used 5% Lidocaine Gel [Edema Assessment] -Lower Limb Edema Present Yes -Right Calf (cm) 52.2 -Right Ankle (cm) 28 -Left Calf (cm) 52.6 -Point of Measurement (cm from the 30 medial instep) WC - Nurse 2 - General Ulcer CM Notes Start: 03/24/18 11:04 Freq: Status: Active Protocol: Activity Type Activity Date Activity User E-Sign Co-Sign Detail Recorded Client Recorded Date Recorded By Document 03/24/18 11:16 NORRIS [id number] 03/24/18 11:21 NORRIS 03/24/18 11:16 Wound Center Nurse 2 [Procedure/Treatment] #15-LEFT LATERAL FOOT -Time 11:17 -Correct Patient Yes -Correct Side, Site, Position Yes -Correct Procedure Yes -Procedure Performed Yes -Type of Procedure Debridement -Clinical Debridement Subcutaneous -Post Debridement Size (cm) - Length 0.6 -Post Debridement Size (cm) - Width 0.4 -Post Debridement Size (cm) - Depth 0.4 -Total Square Cm 0.24 -Wound/Ulcer Outcome Not Healed -Ulcer Cleansing Rinsed/ Irrigated with Saline -Foul Odor after Cleansing No -Bioengineered Tissue No -Bleeding Controlled with Pressure -Offloading Yes -Type of Offloading Surgical Shoe -Treatment Response Procedure Tolerated Well #4 Left central TMA -Correct Patient No -Correct Side, Site, Position No -Correct Procedure No -Procedure Performed No #1 right medial heel -Time 11:17 -Correct Patient Yes -Correct Side, Site, Position Yes -Correct Procedure Yes -Procedure Performed Yes -Type of Procedure Debridement -Clinical Debridement Subcutaneous -Post Debridement Size (cm) - Length 1.5 -Post Debridement Size (cm) - Width 0.8 -Post Debridement Size (cm) - Depth 0.3 -Total Square Cm 1.20 -Wound/Ulcer Outcome Not Healed -Ulcer Cleansing Rinsed/ Irrigated with Saline -Foul Odor after Cleansing No -Bioengineered Tissue No -Bleeding Controlled with Pressure -Offloading Yes -Type of Offloading Surgical Shoe -Treatment Response Procedure Tolerated Well [See Physician Procedure note for Specifics] Pain Scale: 0-10 Numeric [Pain] -Is Patient Pain Free? Yes Musculoskeletal: No Tenderness to Palpation of Joints or Extremities, Muscle Wasting Neurological: - - Lack of epicritic sensation light touch bilateral lower extremities consistent with neuropathy Psych/Mental Status: Normal Affect, Appropriate Debridement Note Post-Debridement Measurements/Treatment [id number] - Nurse 2 - General Ulcer CM Notes Start: 03/24/18 11:04 Freq: Status: Active Protocol: Activity Type Activity Date Activity User E-Sign Co-Sign Detail Recorded Client Recorded Date Recorded By Document 03/24/18 11:16 NORRIS [id number] 03/24/18 11:21 NORRIS 03/24/18 11:16 Wound Center Nurse 2 #15-LEFT LATERAL FOOT -Time 11:17 -Correct Patient Yes -Correct Side, Site, Position Yes -Correct Procedure Yes -Procedure Performed Yes -Type of Procedure Debridement -Clinical Debridement Subcutaneous -Post Debridement Size (cm) - Length 0.6 -Post Debridement Size (cm) - Width 0.4 -Post Debridement Size (cm) - Depth 0.4 -Total Square Cm 0.24 -Wound/Ulcer Outcome Not Healed -Ulcer Cleansing Rinsed/ Irrigated with Saline -Foul Odor after Cleansing No -Bioengineered Tissue No -Bleeding Controlled with Pressure -Offloading Yes -Type of Offloading Surgical Shoe -Treatment Response Procedure Tolerated Well #4 Left central TMA -Correct Patient No -Correct Side, Site, Position No -Correct Procedure No -Procedure Performed No #1 right medial heel -Time 11:17 -Correct Patient Yes -Correct Side, Site, Position Yes -Correct Procedure Yes -Procedure Performed Yes -Type of Procedure Debridement -Clinical Debridement Subcutaneous -Post Debridement Size (cm) - Length 1.5 -Post Debridement Size (cm) - Width 0.8 -Post Debridement Size (cm) - Depth 0.3 -Total Square Cm 1.20 -Wound/Ulcer Outcome Not Healed -Ulcer Cleansing Rinsed/ Irrigated with Saline -Foul Odor after Cleansing No -Bioengineered Tissue No -Bleeding Controlled with Pressure -Offloading Yes -Type of Offloading Surgical Shoe -Treatment Response Procedure Tolerated Well Pain Scale: 0-10 Numeric Is Patient Pain Free? Yes Wound debrided: heel Laterality: Right Wound Grade/Stage: grade 3 Type of Debridement: Excisional debridement Anesthesia Used: 5% Lidocaine Gel Depth: in the subcutaneous layer Percentage of wound debrided: 100 Instrument Used: #15 blade Tissue Removed: fibrous, devitalized subcutaneous, biofilm, slough Severity: Fat Layer Exposed Amount of bleeding with debridement: Mild Bleeding Controlled with: Pressure Patient tolerated procedure well - Additional Wound Wound debrided: lateral foot Laterality: Left Wound Grade/Stage: grade 1 Type of Debridement: Excisional debridement Anesthesia Used: 5% Lidocaine Gel Depth: in the subcutaneous layer Percentage of wound debrided: 100 Instrument Used: #15 blade Tissue Removed: fibrous, devitalized subcutaneous, biofilm, slough Severity: Fat Layer Exposed Amount of bleeding with debridement: Mild Bleeding Controlled with: Pressure Patient tolerated procedure: Patient tolerated procedure well Assessment/Plan Active Problems Lymphedema (Chronic) Venous insufficiency (Chronic) Ulcer of right foot with fat layer exposed (Chronic) Chronic ulcer of left foot with fat layer exposed (Chronic) Lower extremity edema (Chronic) Type 2 diabetes mellitus with diabetic polyneuropathy (Chronic) Malnutrition (Chronic) Obesity (Chronic) Assessment: Right heel ulcer with delayed healing lateral left foot ulcer healed. 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 Left lateral foot ulcer, no infection. lymphedema and continued leg swelling. peripheral vacular disease. venous insufficiency Plan: I discussed his case and treatment plan. Subcutaneous excisional debridement to right heel and left lateral foot ulcer sites performed today as noted in the clinical panel. He was reassured there are no local signs of infection noted today. It is noted he completed a full course of advanced wound care product, epifix,application. To apply Regranex to the ulcer sites 12 hours at she does get it put I noticed a lot better time when he is able to coordinate this with home health or family assistance. If lack of assistance is noted he can resume only [place] use. I recommend he apply just simply a dry gauze to the left central ulcer site that is close to being fully healed. . To maintain improved skin integrity by applying lac hydrin lotion to both legs daily. Continue circaid wraps bilateral legs daily; it is okay to apply tubigrip prior to application of CircAid foot wrap to better keep his wound dressings in place. To continue compression pump device daily; he is doing well with this. To proceed as previously advised with his lymphedema follow-up as advised. He is discharged from the [facility] at this time. [place] compression garments to promote improved continued edema management at a more proximal level was approved for right lower extremity use; to use as advised. It is noted he was not approved for the left lower extremity because he did not meet qualifying criteria of open left leg current ulcer site. To continue diuretic medications per primary care physician.To elevate legs at rest. Compliance is imperative and this was discussed again today. To continue with portion control for weight loss and proper glycemic control and nutritional supplementation to optimize healing. His hemoglobin A1c went from 9.0 to 7.4. To continue strict offloading to all these ulcer sites. He has a donut offloading pillow and he was advised to use this. To follow-up with Dr. Peng as advised for the recommended bilateral intervention, venous. His recent vascular intervention in the left lower extremity is noted. All of his questions were answered. He understands he is still at risk for limb loss. To follow-up at the wound care center in 1 week or call sooner if he has any questions or concerns.
[2018-04-07 10:52] VITALS: RESP 18; TEMP 36.6; BMI 53.1
--- NOTE | 2018-04-07 11:32 | PCM.WC.PN ---
(1) Chronic ulcer of left foot with fat layer exposed Status: Chronic Current Visit: Yes Code(s): L97.522 - Non-pressure chronic ulcer of other part of left foot with fat layer exposed (2) Ulcer of right foot with fat layer exposed Status: Chronic Current Visit: Yes Code(s): L97.512 - Non-pressure chronic ulcer of other part of right foot with fat layer exposed (3) Lymphedema Status: Chronic Current Visit: Yes Code(s): I89.0 - Lymphedema, not elsewhere classified (4) Venous insufficiency Status: Chronic Current Visit: Yes Code(s): I87.2 - Venous insufficiency (chronic) (peripheral) (5) Lower extremity edema Status: Chronic Current Visit: Yes Code(s): R60.0 - Localized edema (6) Type 2 diabetes mellitus with diabetic polyneuropathy Status: Chronic Current Visit: Yes Code(s): E11.42 - Type 2 diabetes mellitus with diabetic polyneuropathy (7) Malnutrition Status: Chronic Current Visit: Yes Code(s): E46 - Unspecified protein-calorie malnutrition (8) Obesity Status: Chronic Current Visit: Yes Code(s): E66.9 - Obesity, unspecified Type of Wound Chief Complaint: Right heel ulcer with delayed healing. 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 left lateral foot ulcer. lymphedema and continued leg swelling History of Wound: 62 year old male was seen for right heel ulcer with chronic osteomyelitis, left foot ulcers (two). He denies fever, chill, nausea, vomiting. He has Regranex at home and home health has been helping when he has help available with the dressing changes. He uses the compession pump 2-3 times a day with significant edema reduction. He completed his vascular surgery angioplasty with Dr. Peng for the left lower extremity. He has received treatment at the lymphedema clinic as well. He denies redness or odor. He denies redness odor or other illness. He is a CircAid compression wraps and still has trouble with swelling because the swelling extends beyond the level of this previous compression wrap. He is followed with Dr. Peng as advised and now has bilateral venous procedures planned in the near future. He is not able to come to his follow-up appointment next week due to a prior commitment. Progress of Wound: improving - Physical Exam Vital Signs Temp Pulse Resp BP 97.8 F 52 L 18 155/73 H 04/07/18 10:52 03/16/18 00:36 04/07/18 10:52 03/16/18 00:36 Wound Measurements and Assessment WC - Nurse 1 - General Ulcer Measurement Start: 03/24/18 11:04 Freq: Status: Active Protocol: Activity Type Activity Date Activity User E-Sign Co-Sign Detail Recorded Client Recorded Date Recorded By Document 04/07/18 10:52 [facility] [id number] 04/07/18 11:07 [facility] 04/07/18 10:52 Wound Center Nurse 1 [Ulcer Assessment] #15-LEFT LATERAL FOOT -Combined with other wound No -Current Size (cm) - Length 0.6 -Current Size (cm) - Width 0.4 -Current Size (cm) - Depth 0.1 -Total Square Cm 0.24 -Photo Taken No -Epithelialization None Present -Tunneling No -Undermining/Tunneling No -Circular Undermining No -Exudate Amt None Present -Wound Margin Flat & Intact -Granulation Amt Large (67-100%) -Granulation Quality [place] -Slough/Fibrin Yes -Necrosis Amt Small (1-33%) -Necrotic Tissue Type Adherent Slough -Texture (Susy-wound Skin Appearance) Callus Scarring -Moisture (Susy-wound Skin Appearance Dry/Scaly ) -Color (Susy-wound Skin Appearance) Assessed -Temperature (Susy-wound Skin No Abnormality Appearance) (Pt Warm) -Tenderness on Palpation (Susy-wound No Skin Appearance) -Ulcer Cleansing Wound Cleanser -Foul Odor after Cleansing No -Anesthetic Used 4% Lidocaine Solution #4 Left central TMA -Combined with other wound No -Current Size (cm) - Length 0.7 -Current Size (cm) - Width 0.1 -Current Size (cm) - Depth 0.2 -Total Square Cm 0.07 -Photo Taken No -Epithelialization Small 1-33% -Tunneling No -Undermining/Tunneling No -Circular Undermining No -Exudate Amt None Present -Wound Margin Flat & Intact -Granulation Amt Large (67-100%) -Granulation Quality [place] -Slough/Fibrin No -Necrosis Amt None Present (0 %) -Structure Exposed None/Limited to Skin Breakdown -Texture (Susy-wound Skin Appearance) Scarring -Moisture (Susy-wound Skin Appearance Dry/Scaly ) -Color (Susy-wound Skin Appearance) Assessed -Temperature (Susy-wound Skin No Abnormality Appearance) (Pt Warm) -Tenderness on Palpation (Susy-wound No Skin Appearance) -Ulcer Cleansing Wound Cleanser -Foul Odor after Cleansing No -Anesthetic Used 4% Lidocaine Solution #1 right medial heel -Combined with other wound No -Current Size (cm) - Length 1.2 -Current Size (cm) - Width 1 -Current Size (cm) - Depth 0.1 -Total Square Cm 1.2 -Photo Taken No -Epithelialization Small 1-33% -Tunneling No -Undermining/Tunneling No -Circular Undermining No -Exudate Amt Small -Exudate Type Serous -Wound Margin Thickened -Granulation Amt Large (67-100%) -Granulation Quality [place] -Slough/Fibrin Yes -Necrosis Amt Small (1-33%) -Necrotic Tissue Type Adherent Slough -Texture (Susy-wound Skin Appearance) Callus Scarring -Moisture (Susy-wound Skin Appearance Dry/Scaly ) -Color (Susy-wound Skin Appearance) Assessed -Temperature (Susy-wound Skin No Abnormality Appearance) (Pt Warm) -Tenderness on Palpation (Susy-wound No Skin Appearance) -Ulcer Cleansing Wound Cleanser -Foul Odor after Cleansing No -Anesthetic Used 4% Lidocaine Solution [Edema Assessment] -Lower Limb Edema Present Yes -Right Calf (cm) 51.6 -Right Ankle (cm) 27.9 -Left Calf (cm) 50 -Left Ankle (cm) 29.1 WC - Nurse 2 - General Ulcer CM Notes Start: 03/24/18 11:04 Freq: Status: Active Protocol: Activity Type Activity Date Activity User E-Sign Co-Sign Detail Recorded Client Recorded Date Recorded By Document 04/07/18 11:25 [facility] [id number] 04/07/18 11:27 [facility] 04/07/18 11:25 Wound Center Nurse 2 [Procedure/Treatment] #15-LEFT LATERAL FOOT -Time 11:26 -Correct Patient Yes -Correct Side, Site, Position Yes -Correct Procedure Yes -Procedure Performed Yes -Type of Procedure Debridement -Clinical Debridement Subcutaneous -Post Debridement Size (cm) - Length 0.6 -Post Debridement Size (cm) - Width 0.5 -Post Debridement Size (cm) - Depth 0.2 -Total Square Cm 0.30 -Wound/Ulcer Outcome Not Healed -Ulcer Cleansing Rinsed/ Irrigated with Saline -Foul Odor after Cleansing No -Bioengineered Tissue No -Bleeding Controlled with Pressure -Offloading Yes -Type of Offloading Surgical Shoe -Treatment Response Procedure Tolerated Well #4 Left central TMA -Time 11:26 -Correct Patient Yes -Correct Side, Site, Position Yes -Correct Procedure Yes -Procedure Performed Yes -Type of Procedure Debridement -Clinical Debridement Subcutaneous -Post Debridement Size (cm) - Length 0.8 -Post Debridement Size (cm) - Width 0.1 -Post Debridement Size (cm) - Depth 0.2 -Total Square Cm 0.08 -Wound/Ulcer Outcome Not Healed -Ulcer Cleansing Rinsed/ Irrigated with Saline -Foul Odor after Cleansing No -Bioengineered Tissue No -Bleeding Controlled with Pressure -Offloading Yes -Type of Offloading Surgical Shoe -Treatment Response Procedure Tolerated Well #1 right medial heel -Time 11:26 -Correct Patient Yes -Correct Side, Site, Position Yes -Correct Procedure Yes -Procedure Performed Yes -Type of Procedure Debridement -Clinical Debridement Subcutaneous -Post Debridement Size (cm) - Length 1.2 -Post Debridement Size (cm) - Width 1.2 -Post Debridement Size (cm) - Depth 0.1 -Total Square Cm 1.44 -Wound/Ulcer Outcome Not Healed -Ulcer Cleansing Rinsed/ Irrigated with Saline -Foul Odor after Cleansing No -Bioengineered Tissue No -Bleeding Controlled with Pressure -Offloading Yes -Type of Offloading Surgical Shoe -Treatment Response Procedure Tolerated Well [See Physician Procedure note for Specifics] Pain Scale: 0-10 Numeric [Pain] -Is Patient Pain Free? Yes Debridement Note Post-Debridement Measurements/Treatment WC - Nurse 2 - General Ulcer CM Notes Start: 03/24/18 11:04 Freq: Status: Active Protocol: Activity Type Activity Date Activity User E-Sign Co-Sign Detail Recorded Client Recorded Date Recorded By Document 03/24/18 11:16 JF [id number] 03/24/18 11:21 JF Document 04/07/18 11:25 JF [id number] 04/07/18 11:27 JF 03/24/18 04/07/18 11:16 11:25 Wound Center Nurse 2 #15-LEFT LATERAL FOOT -Time 11:17 11:26 -Correct Patient Yes Yes -Correct Side, Site, Position Yes Yes -Correct Procedure Yes Yes -Procedure Performed Yes Yes -Type of Procedure Debridement Debridement -Clinical Debridement Subcutaneous Subcutaneous -Post Debridement Size (cm) - Length 0.6 0.6 -Post Debridement Size (cm) - Width 0.4 0.5 -Post Debridement Size (cm) - Depth 0.4 0.2 -Total Square Cm 0.24 0.30 -Wound/Ulcer Outcome Not Healed Not Healed -Ulcer Cleansing Rinsed/ Rinsed/ Irrigated with Irrigated with Saline Saline -Foul Odor after Cleansing No No -Bioengineered Tissue No No -Bleeding Controlled with Pressure Pressure -Offloading Yes Yes -Type of Offloading Surgical Shoe Surgical Shoe -Treatment Response Procedure Procedure Tolerated Well Tolerated Well #4 Left central TMA -Time 11:26 -Correct Patient No Yes -Correct Side, Site, Position No Yes -Correct Procedure No Yes -Procedure Performed No Yes -Type of Procedure Debridement -Clinical Debridement Subcutaneous -Post Debridement Size (cm) - Length 0.8 -Post Debridement Size (cm) - Width 0.1 -Post Debridement Size (cm) - Depth 0.2 -Total Square Cm 0.08 -Wound/Ulcer Outcome Not Healed -Ulcer Cleansing Rinsed/ Irrigated with Saline -Foul Odor after Cleansing No -Bioengineered Tissue No -Bleeding Controlled with Pressure -Offloading Yes -Type of Offloading Surgical Shoe -Treatment Response Procedure Tolerated Well #1 right medial heel -Time 11:17 11:26 -Correct Patient Yes Yes -Correct Side, Site, Position Yes Yes -Correct Procedure Yes Yes -Procedure Performed Yes Yes -Type of Procedure Debridement Debridement -Clinical Debridement Subcutaneous Subcutaneous -Post Debridement Size (cm) - Length 1.5 1.2 -Post Debridement Size (cm) - Width 0.8 1.2 -Post Debridement Size (cm) - Depth 0.3 0.1 -Total Square Cm 1.20 1.44 -Wound/Ulcer Outcome Not Healed Not Healed -Ulcer Cleansing Rinsed/ Rinsed/ Irrigated with Irrigated with Saline Saline -Foul Odor after Cleansing No No -Bioengineered Tissue No No -Bleeding Controlled with Pressure Pressure -Offloading Yes Yes -Type of Offloading Surgical Shoe Surgical Shoe -Treatment Response Procedure Procedure Tolerated Well Tolerated Well Pain Scale: 0-10 Numeric Is Patient Pain Free? Yes Yes Wound debrided: heel Laterality: Right Wound Grade/Stage: grade 3 Type of Debridement: Excisional debridement Anesthesia Used: 5% Lidocaine Gel Depth: in the subcutaneous layer Percentage of wound debrided: 100 Instrument Used: #15 blade Tissue Removed: fibrous, devitalized subcutaneous, biofilm, slough Severity: Fat Layer Exposed Amount of bleeding with debridement: Mild Bleeding Controlled with: Pressure Patient tolerated procedure well - Additional Wound Wound debrided: central foot stump site Laterality: Left Wound Grade/Stage: grade 1 Type of Debridement: Excisional debridement Anesthesia Used: 5% Lidocaine Gel Depth: in the subcutaneous layer Percentage of wound debrided: 100 Instrument Used: #15 blade Tissue Removed: fibrous, devitalized subcutaneous, biofilm, slough Severity: Fat Layer Exposed Amount of bleeding with debridement: Mild Bleeding Controlled with: Pressure Patient tolerated procedure: Patient tolerated procedure well - Additional Wound Wound debrided: lateral foot Laterality: Left Wound Grade/Stage: grade 1 Type of Debridement: Excisional debridement Anesthesia Used: 5% Lidocaine Gel Depth: in the subcutaneous layer Percentage of wound debrided: 100 Instrument Used: #15 blade Tissue Removed: fibrous, devitalized subcutaneous, biofilm, slough Severity: Fat Layer Exposed Amount of bleeding with debridement: Mild Bleeding Controlled with: Pressure Patient tolerated procedure: Patient tolerated procedure well Assessment/Plan Active Problems Lymphedema (Chronic) Venous insufficiency (Chronic) Ulcer of right foot with fat layer exposed (Chronic) Chronic ulcer of left foot with fat layer exposed (Chronic) Lower extremity edema (Chronic) Type 2 diabetes mellitus with diabetic polyneuropathy (Chronic) Malnutrition (Chronic) Obesity (Chronic) Assessment: Right heel ulcer with delayed healing lateral left foot ulcer healed. 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 Left lateral foot ulcer, no infection. lymphedema and continued leg swelling. peripheral vacular disease. venous insufficiency Plan: I discussed his case and treatment plan. Subcutaneous excisional debridement to right heel and left central and lateral foot ulcer sites performed today as noted in the clinical panel. He was reassured there are no local signs of infection noted today. It is noted he completed a full course of advanced wound care product, epifix,application. To apply Regranex to the ulcer sites 24 hours. To apply an aperture pad to offload the left central stump ulcer site. I suspect tissue her sock may be rubbing on this site. I evaluate his surgical shoe today. It is okay to continue use. . To maintain improved skin integrity by applying lac hydrin lotion to both legs daily. Continue circaid wraps bilateral legs daily; it is okay to apply tubigrip prior to application of CircAid foot wrap to better keep his wound dressings in place. To continue compression pump device daily; he is doing well with this. To proceed as previously advised with his lymphedema follow-up as advised. He is discharged from the [facility] at this time. [place] compression garments to promote improved continued edema management at a more proximal level was approved for right lower extremity use; to use as advised. It is noted he was not approved for the left lower extremity because he did not meet qualifying criteria of open left leg current ulcer site. To continue diuretic medications per primary care physician.To elevate legs at rest. Compliance is imperative and this was discussed again today. To continue with portion control for weight loss and proper glycemic control and nutritional supplementation to optimize healing. His hemoglobin A1c went from 9.0 to 7.4. To continue strict offloading to all these ulcer sites. He has a donut offloading pillow and he was advised to use this. To follow-up with Dr. Peng as advised for the recommended bilateral intervention, venous. His recent vascular intervention in the left lower extremity is noted. All of his questions were answered. He understands he is still at risk for limb loss. He has difficulty traveling and prolonged walking and traveling to compromise his ulcer healing ability. I provided a note to recommend excusing him from jury duty traveling at this time. To follow-up at the wound care center in 1 week or call sooner if he has any questions or concerns.
--- NOTE | 2018-04-07 11:35 | PN.PCM_ITS ---
(1) Chronic ulcer of left foot with fat layer exposed Status: Chronic Current Visit: Yes Code(s): L97.522 - Non-pressure chronic ulcer of other part of left foot with fat layer exposed (2) Ulcer of right foot with fat layer exposed Status: Chronic Current Visit: Yes Code(s): L97.512 - Non-pressure chronic ulcer of other part of right foot with fat layer exposed (3) Lymphedema Status: Chronic Current Visit: Yes Code(s): I89.0 - Lymphedema, not elsewhere classified (4) Venous insufficiency Status: Chronic Current Visit: Yes Code(s): I87.2 - Venous insufficiency (chronic) (peripheral) (5) Lower extremity edema Status: Chronic Current Visit: Yes Code(s): R60.0 - Localized edema (6) Type 2 diabetes mellitus with diabetic polyneuropathy Status: Chronic Current Visit: Yes Code(s): E11.42 - Type 2 diabetes melli tus with diabetic polyneuropathy (7) Malnutrition Status: Chronic Current Visit: Yes Code(s): E46 - Unspecified protein- calorie malnutrition (8) Obesity Status: Chronic Current Visit: Yes Code(s): E66.9 - Obesity, unspecified Type of Wound Chief Complaint: Right heel ulcer with delayed healing. 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 left lateral foot ulcer. lymphedema and continued leg swelling History of Wound: 62 year old male was seen for right heel ulcer with chronic osteomyelitis, left foot ulcers (two). He denies fever, chill, nausea, vomiting. He has Regranex at home and home health has been helping when he has help available with the dressing changes. He uses the compession pump 2-3 times a day with significant edema reduction. He completed his vascular surgery angioplasty with Dr. ePng for the left lower extremity. He has received treatment at the lymphedema clinic as well. He denies redness or odor. He denies redness odor or other illness. He is a CircAid compression wraps and still has trouble with swelling because the swelling extends beyond the level of this previous compression wrap. He is followed with Dr. Peng as advised and now has bilateral venous procedures planned in the near future. He is not able to come to his follow-up appointment next week due to a prior commitment. Progress of Wound: improving - Physical Exam Vital Signs Temp Pulse Resp BP 97.8 F 52 L 18 155/73 H 04/07/18 10:52 03/16/18 00:36 04/07/18 10:52 03/16/18 00:36 Wound Measurements and Assessment WC - Nurse 1 - General Ulcer Measurement Start: 03/24/18 11:04 Freq: Status: Active Protocol: Activity Type Activity Date Activity User E-Sign Co-Sign Detail Recorded Client Recorded Date Recorded By Document 04/07/18 10:52 [facility] [id number] 04/07/18 11:07 [facility] 04/07/18 10:52 Wound Center Nurse 1 [Ulcer Assessment] #15-LEFT LATERAL FOOT -Combined with other wound No -Current Size (cm) - Length 0.6 -Current Size (cm) - Width 0.4 -Current Size (cm) - Depth 0.1 -Total Square Cm 0.24 -Photo Taken No -Epithelialization None Present -Tunneling No -Undermining/Tunneling No -Circular Undermining No -Exudate Amt None Present -Wound Margin Flat & Intact -Granulation Amt Large (67-100%) -Granulation Quality [place] -Slough/Fibrin Yes -Necrosis Amt Small (1-33%) -Necrotic Tissue Type Adherent Slough -Texture (Susy-wound Skin Appearance) Callus Scarring -Moisture (Susy-wound Skin Appearance Dry/Scaly ) -Color (Susy-wound Skin Appearance) Assessed -Temperature (Susy-wound Skin No Abnormality Appearance) (Pt Warm) -Tenderness on Palpation (Susy-wound No Skin Appearance) -Ulcer Cleansing Wound Cleanser -Foul Odor after Cleansing No -Anesthetic Used 4% Lidocaine Solution #4 Left central TMA -Combined with other wound No -Current Size (cm) - Length 0.7 -Current Size (cm) - Width 0.1 -Current Size (cm) - Depth 0.2 -Total Square Cm 0.07 -Photo Taken No -Epithelialization Small 1-33% -Tunneling No -Undermining/Tunneling No -Circular Undermining No -Exudate Amt None Present -Wound Margin Flat & Intact -Granulation Amt Large (67-100%) -Granulation Quality [place] -Slough/Fibrin No -Necrosis Amt None Present (0 %) -Structure Exposed None/Limited to Skin Breakdown -Texture (Susy-wound Skin Appearance) Scarring -Moisture (Susy-wound Skin Appearance Dry/Scaly ) -Color (Susy-wound Skin Appearance) Assessed -Temperature (Susy-wound Skin No Abnormality Appearance) (Pt Warm) -Tenderness on Palpation (Susy-wound No Skin Appearance) -Ulcer Cleansing Wound Cleanser -Foul Odor after Cleansing No -Anesthetic Used 4% Lidocaine Solution #1 right medial heel -Combined with other wound No -Current Size (cm) - Length 1.2 -Current Size (cm) - Width 1 -Current Size (cm) - Depth 0.1 -Total Square Cm 1.2 -Photo Taken No -Epithelialization Small 1-33% -Tunneling No -Undermining/Tunneling No -Circular Undermining No -Exudate Amt Small -Exudate Type Serous -Wound Margin Thickened -Granulation Amt Large (67-100%) -Granulation Quality [place] -Slough/Fibrin Yes -Necrosis Amt Small (1-33%) -Necrotic Tissue Type Adherent Slough -Texture (Susy-wound Skin Appearance) Callus Scarring -Moisture (Susy-wound Skin Appearance Dry/Scaly ) -Color (Susy-wound Skin Appearance) Assessed -Temperature (Susy-wound Skin No Abnormality Appearance) (Pt Warm) -Tenderness on Palpation (Susy-wound No Skin Appearance) -Ulcer Cleansing Wound Cleanser -Foul Odor after Cleansing No -Anesthetic Used 4% Lidocaine Solution [Edema Assessment] -Lower Limb Edema Present Yes -Right Calf (cm) 51.6 -Right Ankle (cm) 27.9 -Left Calf (cm) 50 -Left Ankle (cm) 29.1 WC - Nurse 2 - General Ulcer CM Notes Start: 03/24/18 11:04 Freq: Status: Active Protocol: Activity Type Activity Date Activity User E-Sign Co-Sign Detail Recorded Client Recorded Date Recorded By Document 04/07/18 11:25 [facility] [id number] 04/07/18 11:27 NORRIS 04/07/18 11:25 Wound Center Nurse 2 [Procedure/Treatment] #15-LEFT LATERAL FOOT -Time 11:26 -Correct Patient Yes -Correct Side, Site, Position Yes -Correct Procedure Yes -Procedure Performed Yes -Type of Procedure Debridement -Clinical Debridement Subcutaneous -Post Debridement Size (cm) - Length 0.6 -Post Debridement Size (cm) - Width 0.5 -Post Debridement Size (cm) - Depth 0.2 -Total Square Cm 0.30 -Wound/Ulcer Outcome Not Healed -Ulcer Cleansing Rinsed/ Irrigated with Saline -Foul Odor after Cleansing No -Bioengineered Tissue No -Bleeding Controlled with Pressure -Offloading Yes -Type of Offloading Surgical Shoe -Treatment Response Procedure Tolerated Well #4 Left central TMA -Time 11:26 -Correct Patient Yes -Correct Side, Site, Position Yes -Correct Procedure Yes -Procedure Performed Yes -Type of Procedure Debridement -Clinical Debridement Subcutaneous -Post Debridement Size (cm) - Length 0.8 -Post Debridement Size (cm) - Width 0.1 -Post Debridement Size (cm) - Depth 0.2 -Total Square Cm 0.08 -Wound/Ulcer Outcome Not Healed -Ulcer Cleansing Rinsed/ Irrigated with Saline -Foul Odor after Cleansing No -Bioengineered Tissue No -Bleeding Controlled with Pressure -Offloading Yes -Type of Offloading Surgical Shoe -Treatment Response Procedure Tolerated Well #1 right medial heel -Time 11:26 -Correct Patient Yes -Correct Side, Site, Position Yes -Correct Procedure Yes -Procedure Performed Yes -Type of Procedure Debridement -Clinical Debridement Subcutaneous -Post Debridement Size (cm) - Length 1.2 -Post Debridement Size (cm) - Width 1.2 -Post Debridement Size (cm) - Depth 0.1 -Total Square Cm 1.44 -Wound/Ulcer Outcome Not Healed -Ulcer Cleansing Rinsed/ Irrigated with Saline -Foul Odor after Cleansing No -Bioengineered Tissue No -Bleeding Controlled with Pressure -Offloading Yes -Type of Offloading Surgical Shoe -Treatment Response Procedure Tolerated Well [See Physician Procedure note for Specifics] Pain Scale: 0-10 Numeric [Pain] -Is Patient Pain Free? Yes Debridement Note Post-Debridement Measurements/Treatment WC - Nurse 2 - General Ulcer CM Notes Start: 03/24/18 11:04 Freq: Status: Active Protocol: Activity Type Activity Date Activity User E-Sign Co-Sign Detail Recorded Client Recorded Date Recorded By Document 03/24/18 11:16 JF [id number] 03/24/18 11:21 JF Document 04/07/18 11:25 JF [id number] 04/07/18 11:27 JF 03/24/18 04/07/18 11:16 11:25 Wound Center Nurse 2 #15-LEFT LATERAL FOOT -Time 11:17 11:26 -Correct Patient Yes Yes -Correct Side, Site, Position Yes Yes -Correct Procedure Yes Yes -Procedure Performed Yes Yes -Type of Procedure Debridement Debridement -Clinical Debridement Subcutaneous Subcutaneous -Post Debridement Size (cm) - Length 0.6 0.6 -Post Debridement Size (cm) - Width 0.4 0.5 -Post Debridement Size (cm) - Depth 0.4 0.2 -Total Square Cm 0.24 0.30 -Wound/Ulcer Outcome Not Healed Not Healed -Ulcer Cleansing Rinsed/ Rinsed/ Irrigated with Irrigated with Saline Saline -Foul Odor after Cleansing No No -Bioengineered Tissue No No -Bleeding Controlled with Pressure Pressure -Offloading Yes Yes -Type of Offloading Surgical Shoe Surgical Shoe -Treatment Response Procedure Procedure Tolerated Well Tolerated Well #4 Left central TMA -Time 11:26 -Correct Patient No Yes -Correct Side, Site, Position No Yes -Correct Procedure No Yes -Procedure Performed No Yes -Type of Procedure Debridement -Clinical Debridement Subcutaneous -Post Debridement Size (cm) - Length 0.8 -Post Debridement Size (cm) - Width 0.1 -Post Debridement Size (cm) - Depth 0.2 -Total Square Cm 0.08 -Wound/Ulcer Outcome Not Healed -Ulcer Cleansing Rinsed/ Irrigated with Saline -Foul Odor after Cleansing No -Bioengineered Tissue No -Bleeding Controlled with Pressure -Offloading Yes -Type of Offloading Surgical Shoe -Treatment Response Procedure Tolerated Well #1 right medial heel -Time 11:17 11:26 -Correct Patient Yes Yes -Correct Side, Site, Position Yes Yes -Correct Procedure Yes Yes -Procedure Performed Yes Yes -Type of Procedure Debridement Debridement -Clinical Debridement Subcutaneous Subcutaneous -Post Debridement Size (cm) - Length 1.5 1.2 -Post Debridement Size (cm) - Width 0.8 1.2 -Post Debridement Size (cm) - Depth 0.3 0.1 -Total Square Cm 1.20 1.44 -Wound/Ulcer Outcome Not Healed Not Healed -Ulcer Cleansing Rinsed/ Rinsed/ Irrigated with Irrigated with Saline Saline -Foul Odor after Cleansing No No -Bioengineered Tissue No No -Bleeding Controlled with Pressure Pressure -Offloading Yes Yes -Type of Offloading Surgical Shoe Surgical Shoe -Treatment Response Procedure Procedure Tolerated Well Tolerated Well Pain Scale: 0-10 Numeric Is Patient Pain Free? Yes Yes Wound debrided: heel Laterality: Right Wound Grade/Stage: grade 3 Type of Debridement: Excisional debridement Anesthesia Used: 5% Lidocaine Gel Depth: in the subcutaneous layer Percentage of wound debrided: 100 Instrument Used: #15 blade Tissue Removed: fibrous, devitalized subcutaneous, biofilm, slough Severity: Fat Layer Exposed Amount of bleeding with debridement: Mild Bleeding Controlled with: Pressure Patient tolerated procedure well - Additional Wound Wound debrided: central foot stump site Laterality: Left Wound Grade/Stage: grade 1 Type of Debridement: Excisional debridement Anesthesia Used: 5% Lidocaine Gel Depth: in the subcutaneous layer Percentage of wound debrided: 100 Instrument Used: #15 blade Tissue Removed: fibrous, devitalized subcutaneous, biofilm, slough Severity: Fat Layer Exposed Amount of bleeding with debridement: Mild Bleeding Controlled with: Pressure Patient tolerated procedure: Patient tolerated procedure well - Additional Wound Wound debrided: lateral foot Laterality: Left Wound Grade/Stage: grade 1 Type of Debridement: Excisional debridement Anesthesia Used: 5% Lidocaine Gel Depth: in the subcutaneous layer Percentage of wound debrided: 100 Instrument Used: #15 blade Tissue Removed: fibrous, devitalized subcutaneous, biofilm, slough Severity: Fat Layer Exposed Amount of bleeding with debridement: Mild Bleeding Controlled with: Pressure Patient tolerated procedure: Patient tolerated procedure well Assessment/Plan Active Problems Lymphedema (Chronic) Venous insufficiency (Chronic) Ulcer of right foot with fat layer exposed (Chronic) Chronic ulcer of left foot with fat layer exposed (Chronic) Lower extremity edema (Chronic) Type 2 diabetes mellitus with diabetic polyneuropathy (Chronic) Malnutrition (Chronic) Obesity (Chronic) Assessment: Right heel ulcer with delayed healing lateral left foot ulcer healed. 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 Left lateral foot ulcer, no infection. lymphedema and continued leg swelling. peripheral vacular disease. venous insufficiency Plan: I discussed his case and treatment plan. Subcutaneous excisional debridement to right heel and left central and lateral foot ulcer sites performed today as noted in the clinical panel. He was reassured there are no local signs of infection noted today. It is noted he completed a full course of advanced wound care product, epifix,application. To apply Regranex to the ulcer sites 24 hours. To apply an aperture pad to offload the left central stump ulcer site. I suspect tissue her sock may be rubbing on this site. I evaluate his surgical shoe today. It is okay to continue use. . To maintain improved skin integrity by applying lac hydrin lotion to both legs daily. Continue circaid wraps bilateral legs daily; it is okay to apply tubigrip prior to application of CircAid foot wrap to better keep his wound dressings in place. To continue compression pump device daily; he is doing well with this. To proceed as previously advised with his lymphedema follow-up as advised. He is [facility] from the [facility] at this time. Farrow compression garments to promote improved continued edema management at a more proximal level was approved for right lower extremity use; to use as advised. It is noted he was not approved for the left lower extremity because he did not meet qualifying criteria of open left leg current ulcer site. To continue diuretic medications per primary care physician.To elevate legs at rest. Compliance is imperative and this was discussed again today. To continue with portion control for weight loss and proper glycemic control and nutritional supplementation to optimize healing. His hemoglobin A1c went from 9.0 to 7.4. To continue strict offloading to all these ulcer sites. He has a donut offloading pillow and he was advised to use this. To follow-up with Dr. Peng as advised for the recommended bilateral intervention, venous. His recent vascular intervention in the left lower extremity is noted. All of his questions were answered. He understands he is still at risk for limb loss. He has difficulty traveling and prolonged walking and traveling to compromise his ulcer healing ability. I provided a note to recommend excusing him from jury duty traveling at this time. To follow-up at the wound care center in 1 week or call sooner if he has any questions or concerns.
[2018-04-14 10:46] VITALS: BP 164/77; PULSE 55; RESP 18; TEMP 36.4; BMI 53.1
--- NOTE | 2018-04-14 10:56 | WC ---
NEW BLISTER NOTED TO RT POST HEEL. NOT OPEN. WILL UPDATE DR CAMPBELL AND JESSICA GARRETT. PT AWARE. DENIES INJURY TO THE AREA.
--- NOTE | 2018-04-14 12:40 | PCM.WC.PN ---
(1) Blister of foot, right Status: Acute Current Visit: Yes Code(s): S90.821A - Blister (nonthermal), right foot, initial encounter (2) Chronic ulcer of left foot with fat layer exposed Status: Chronic Current Visit: Yes Code(s): L97.522 - Non-pressure chronic ulcer of other part of left foot with fat layer exposed (3) Ulcer of right foot with fat layer exposed Status: Chronic Current Visit: Yes Code(s): L97.512 - Non-pressure chronic ulcer of other part of right foot with fat layer exposed (4) Lymphedema Status: Chronic Current Visit: Yes Code(s): I89.0 - Lymphedema, not elsewhere classified (5) Venous insufficiency Status: Chronic Current Visit: Yes Code(s): I87.2 - Venous insufficiency (chronic) (peripheral) (6) Lower extremity edema Status: Chronic Current Visit: Yes Code(s): R60.0 - Localized edema (7) Type 2 diabetes mellitus with diabetic polyneuropathy Status: Chronic Current Visit: Yes Code(s): E11.42 - Type 2 diabetes mellitus with diabetic polyneuropathy (8) Malnutrition Status: Chronic Current Visit: Yes Code(s): E46 - Unspecified protein-calorie malnutrition (9) Obesity Status: Chronic Current Visit: Yes Code(s): E66.9 - Obesity, unspecified Type of Wound Chief Complaint: Right heel ulcer with delayed healing. New blister and increased drainage to the right bottom heel. 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 left lateral foot ulcer. lymphedema and continued leg swelling History of Wound: 62 year old male was seen for right heel ulcer with chronic osteomyelitis, left foot ulcers and also a new right heel blister with drainage. The onset of this new condition occurred approximately 3 days ago. He denies trauma. He did have some extra activity going on but he does not recall when this exactly happened. He denies fever, chill, nausea, vomiting. He has Regranex at home and home health has been helping when he has help available with the dressing changes. He uses the compession pump 2-3 times a day with significant edema reduction. He completed his vascular surgery angioplasty with Dr. Peng for the left lower extremity. He has received treatment at the lymphedema clinic as well. He denies redness or odor. He denies redness odor or other illness. He is a CircAid compression wraps and still has trouble with swelling because the swelling extends beyond the level of this previous compression wrap. He is followed with Dr. Peng as advised and now has bilateral venous procedures planned in the near future. He is not able to come to his follow-up appointment next week due to a prior commitment. Progress of Wound: improving to right heel and left ulcer sites. New blister bottom of right heel - Physical Exam Vital Signs Temp Pulse Resp BP 97.5 F L 55 L 18 164/77 H 04/14/18 10:46 04/14/18 10:46 04/14/18 10:46 04/14/18 10:46 General: Alert, Oriented x3, Cooperative Extremities: No cyanosis, Capillary Refill Less than 3 Seconds, No Calf Tenderness - Negative Keara and Simmons sign bilateral, Diminished Peripheral Pulses, Edema - Bilateral lower extremities, - - Left transmetatarsal amputation Skin: Ulcer/ Wound - No purulence, erythema, streaking, odor, or infection. There is full epithelialization noted to the central transmetatarsal amputation stump site on the left foot with no drainage. There is a new blister with exposed granulation tissue to the plantar aspect. There is no deep tissue probing, necrosis, or infection. The peripheral skin is hairless and atrophic bilateral lower extremities Wound Measurements and Assessment WC - Nurse 1 - General Ulcer Measurement Start: 03/24/18 11:04 Freq: Status: Active Protocol: Activity Type Activity Date Activity User E-Sign Co-Sign Detail Recorded Client Recorded Date Recorded By Document 04/14/18 10:46 [facility] [id number] 04/14/18 10:56 [facility] 04/14/18 10:46 Wound Center Nurse 1 [Ulcer Assessment] #15-LEFT LATERAL FOOT -Combined with other wound No -Current Size (cm) - Length 1.1 -Current Size (cm) - Width 1 -Current Size (cm) - Depth 0.1 -Total Square Cm 1.1 -Photo Taken No -Epithelialization Large 67-100% -Tunneling No -Undermining/Tunneling No -Circular Undermining No -Exudate Amt Small -Exudate Type Serosanguineous -Wound Margin Thickened -Granulation Amt None Present (0 %) -Slough/Fibrin Yes -Necrosis Amt Large (67-100%) -Necrotic Tissue Type Adherent Slough -Texture (Susy-wound Skin Appearance) Callus Scarring -Moisture (Susy-wound Skin Appearance Dry/Scaly ) -Color (Susy-wound Skin Appearance) Assessed -Temperature (Susy-wound Skin No Abnormality Appearance) (Pt Warm) -Tenderness on Palpation (Susy-wound No Skin Appearance) -Ulcer Cleansing Rinsed/ Irrigated with Saline -Foul Odor after Cleansing No -Anesthetic Used 5% Lidocaine Gel #4 Left central TMA -Combined with other wound No -Current Size (cm) - Length 0.1 -Current Size (cm) - Width 0.1 -Current Size (cm) - Depth 0.1 -Total Square Cm 0.01 -Photo Taken No -Epithelialization Large 67-100% -Tunneling No -Undermining/Tunneling No -Circular Undermining No -Exudate Amt None Present -Texture (Susy-wound Skin Appearance) Scarring -Moisture (Susy-wound Skin Appearance Dry/Scaly ) -Color (Susy-wound Skin Appearance) Assessed -Temperature (Susy-wound Skin No Abnormality Appearance) (Pt Warm) -Tenderness on Palpation (Susy-wound No Skin Appearance) -Ulcer Cleansing Rinsed/ Irrigated with Saline -Foul Odor after Cleansing No -Anesthetic Used 5% Lidocaine Gel #1 right medial heel -Combined with other wound No -Current Size (cm) - Length 1.1 -Current Size (cm) - Width 1.4 -Current Size (cm) - Depth 0.3 -Total Square Cm 1.54 -Photo Taken No -Epithelialization None Present -Tunneling No -Undermining/Tunneling No -Circular Undermining No -Exudate Amt Small -Exudate Type Serosanguineous -Wound Margin Thickened -Granulation Amt Large (67-100%) -Granulation Quality Stem -Slough/Fibrin Yes -Necrosis Amt Small (1-33%) -Necrotic Tissue Type Adherent Slough -Texture (Susy-wound Skin Appearance) Callus Scarring -Moisture (Susy-wound Skin Appearance Dry/Scaly ) -Color (Susy-wound Skin Appearance) Assessed -Temperature (Susy-wound Skin No Abnormality Appearance) (Pt Warm) -Tenderness on Palpation (Susy-wound No Skin Appearance) -Ulcer Cleansing Rinsed/ Irrigated with Saline -Foul Odor after Cleansing No -Anesthetic Used 5% Lidocaine Gel [Edema Assessment] -Lower Limb Edema Present Yes -Right Calf (cm) 52.3 -Right Ankle (cm) 27.8 -Left Calf (cm) 52 -Left Ankle (cm) 28.6 WC - Nurse 2 - General Ulcer CM Notes Start: 03/24/18 11:04 Freq: Status: Active Protocol: Activity Type Activity Date Activity User E-Sign Co-Sign Detail Recorded Client Recorded Date Recorded By Document 04/14/18 11:02 [id number] 04/14/18 11:11 NORRIS 04/14/18 11:02 Wound Center Nurse 2 [Procedure/Treatment] 20-right posterior heel -Time 11:09 -Correct Patient Yes -Correct Side, Site, Position Yes -Correct Procedure Yes -Procedure Performed Yes -Type of Procedure Debridement -Clinical Debridement Subcutaneous -Post Debridement Size (cm) - Length 0.8 -Post Debridement Size (cm) - Width 1.6 -Post Debridement Size (cm) - Depth 0.2 -Total Square Cm 1.28 -Wound/Ulcer Outcome Not Healed -Ulcer Cleansing Rinsed/ Irrigated with Saline -Foul Odor after Cleansing No -Bioengineered Tissue No -Bleeding Controlled with Pressure -Offloading Yes -Type of Offloading Surgical Shoe -Treatment Response Procedure Tolerated Well #15-LEFT LATERAL FOOT -Time 11:02 -Correct Patient Yes -Correct Side, Site, Position Yes -Correct Procedure Yes -Procedure Performed Yes -Type of Procedure Debridement -Clinical Debridement Subcutaneous -Post Debridement Size (cm) - Length 1.1 -Post Debridement Size (cm) - Width 1.1 -Post Debridement Size (cm) - Depth 0.1 -Total Square Cm 1.21 -Wound/Ulcer Outcome Not Healed -Ulcer Cleansing Rinsed/ Irrigated with Saline -Foul Odor after Cleansing No -Bioengineered Tissue No -Bleeding Controlled with Pressure -Offloading Yes -Type of Offloading Surgical Shoe -Treatment Response Procedure Tolerated Well #4 Left central TMA -Correct Patient No -Correct Side, Site, Position No -Correct Procedure No -Procedure Performed No -Post Debridement Size (cm) - Length 0 -Post Debridement Size (cm) - Width 0 -Post Debridement Size (cm) - Depth 0 -Total Square Cm 0 -Wound/Ulcer Outcome Healed- Epithelialized #1 right medial heel -Time 11:04 -Correct Patient Yes -Correct Side, Site, Position Yes -Correct Procedure Yes -Procedure Performed Yes -Type of Procedure Debridement -Clinical Debridement Subcutaneous -Post Debridement Size (cm) - Length 1.2 -Post Debridement Size (cm) - Width 1.4 -Post Debridement Size (cm) - Depth 0.3 -Total Square Cm 1.68 -Wound/Ulcer Outcome Not Healed -Ulcer Cleansing Rinsed/ Irrigated with Saline -Foul Odor after Cleansing No -Bioengineered Tissue No -Bleeding Controlled with Pressure -Offloading Yes -Type of Offloading Surgical Shoe -Treatment Response Procedure Tolerated Well [See Physician Procedure note for Specifics] Pain Scale: 0-10 Numeric [Pain] -Is Patient Pain Free? Yes Musculoskeletal: Muscle Wasting Neurological: - - Lack of epicritic sensation light touch bilateral lower extremities Psych/Mental Status: Normal Affect, Appropriate Debridement Note Post-Debridement Measurements/Treatment WC - Nurse 2 - General Ulcer CM Notes Start: 03/24/18 11:04 Freq: Status: Active Protocol: Activity Type Activity Date Activity User E-Sign Co-Sign Detail Recorded Client Recorded Date Recorded By Document 03/24/18 11:16 [id number] 03/24/18 11:21 Document 04/07/18 11:25 [id number] 04/07/18 11:27 Document 04/14/18 11:02 [id number] 04/14/18 11:11 03/24/18 04/07/18 04/14/18 11:16 11:25 11:02 Wound Center Nurse 2 20-right posterior heel -Time 11:09 -Correct Patient Yes -Correct Side, Site, Position Yes -Correct Procedure Yes -Procedure Performed Yes -Type of Procedure Debridement -Clinical Debridement Subcutaneous -Post Debridement Size (cm) - Length 0.8 -Post Debridement Size (cm) - Width 1.6 -Post Debridement Size (cm) - Depth 0.2 -Total Square Cm 1.28 -Wound/Ulcer Outcome Not Healed -Ulcer Cleansing Rinsed/ Irrigated with Saline -Foul Odor after Cleansing No -Bioengineered Tissue No -Bleeding Controlled with Pressure -Offloading Yes -Type of Offloading Surgical Shoe -Treatment Response Procedure Tolerated Well #15-LEFT LATERAL FOOT -Time 11:17 11:26 11:02 -Correct Patient Yes Yes Yes -Correct Side, Site, Position Yes Yes Yes -Correct Procedure Yes Yes Yes -Procedure Performed Yes Yes Yes -Type of Procedure Debridement Debridement Debridement -Clinical Debridement Subcutaneous Subcutaneous Subcutaneous -Post Debridement Size (cm) - Length 0.6 0.6 1.1 -Post Debridement Size (cm) - Width 0.4 0.5 1.1 -Post Debridement Size (cm) - Depth 0.4 0.2 0.1 -Total Square Cm 0.24 0.30 1.21 -Wound/Ulcer Outcome Not Healed Not Healed Not Healed -Ulcer Cleansing Rinsed/ Rinsed/ Rinsed/ Irrigated with Irrigated with Irrigated with Saline Saline Saline -Foul Odor after Cleansing No No No -Bioengineered Tissue No No No -Bleeding Controlled with Pressure Pressure Pressure -Offloading Yes Yes Yes -Type of Offloading Surgical Shoe Surgical Shoe Surgical Shoe -Treatment Response Procedure Procedure Procedure Tolerated Well Tolerated Well Tolerated Well #4 Left central TMA -Time 11:26 -Correct Patient No Yes No -Correct Side, Site, Position No Yes No -Correct Procedure No Yes No -Procedure Performed No Yes No -Type of Procedure Debridement -Clinical Debridement Subcutaneous -Post Debridement Size (cm) - Length 0.8 0 -Post Debridement Size (cm) - Width 0.1 0 -Post Debridement Size (cm) - Depth 0.2 0 -Total Square Cm 0.08 0 -Wound/Ulcer Outcome Not Healed Healed- Epithelialized -Ulcer Cleansing Rinsed/ Irrigated with Saline -Foul Odor after Cleansing No -Bioengineered Tissue No -Bleeding Controlled with Pressure -Offloading Yes -Type of Offloading Surgical Shoe -Treatment Response Procedure Tolerated Well #1 right medial heel -Time 11:17 11:26 11:04 -Correct Patient Yes Yes Yes -Correct Side, Site, Position Yes Yes Yes -Correct Procedure Yes Yes Yes -Procedure Performed Yes Yes Yes -Type of Procedure Debridement Debridement Debridement -Clinical Debridement Subcutaneous Subcutaneous Subcutaneous -Post Debridement Size (cm) - Length 1.5 1.2 1.2 -Post Debridement Size (cm) - Width 0.8 1.2 1.4 -Post Debridement Size (cm) - Depth 0.3 0.1 0.3 -Total Square Cm 1.20 1.44 1.68 -Wound/Ulcer Outcome Not Healed Not Healed Not Healed -Ulcer Cleansing Rinsed/ Rinsed/ Rinsed/ Irrigated with Irrigated with Irrigated with Saline Saline Saline -Foul Odor after Cleansing No No No -Bioengineered Tissue No No No -Bleeding Controlled with Pressure Pressure Pressure -Offloading Yes Yes Yes -Type of Offloading Surgical Shoe Surgical Shoe Surgical Shoe -Treatment Response Procedure Procedure Procedure Tolerated Well Tolerated Well Tolerated Well Pain Scale: 0-10 Numeric Is Patient Pain Free? Yes Yes Yes Wound debrided: heel medial Laterality: Right Wound Grade/Stage: grade 3 Type of Debridement: Excisional debridement Anesthesia Used: 5% Lidocaine Gel Depth: in the subcutaneous layer Percentage of wound debrided: 100 Instrument Used: #15 blade Tissue Removed: fibrous, devitalized subcutaneous, biofilm, slough Severity: Fat Layer Exposed Amount of bleeding with debridement: Mild Bleeding Controlled with: Pressure Patient tolerated procedure well - Additional Wound Wound debrided: heel plantar Laterality: Right Wound Grade/Stage: grade 1 Type of Debridement: Excisional debridement Anesthesia Used: 5% Lidocaine Gel Depth: in the subcutaneous layer Percentage of wound debrided: 100 Instrument Used: #15 blade Tissue Removed: fibrous, devitalized subcutaneous, biofilm, slough Severity: Fat Layer Exposed Amount of bleeding with debridement: Mild Bleeding Controlled with: Pressure Patient tolerated procedure: Patient tolerated procedure well - Additional Wound Wound debrided: lateral forefoot Laterality: Left Wound Grade/Stage: grade 1 Type of Debridement: Excisional debridement Anesthesia Used: 5% Lidocaine Gel Depth: in the subcutaneous layer Percentage of wound debrided: 100 Instrument Used: #15 blade Tissue Removed: fibrous, devitalized subcutaneous, biofilm, slough Severity: Fat Layer Exposed Amount of bleeding with debridement: Mild Bleeding Controlled with: Pressure Patient tolerated procedure: Patient tolerated procedure well Assessment/Plan Active Problems Lymphedema (Chronic) Venous insufficiency (Chronic) Ulcer of right foot with fat layer exposed (Chronic) Chronic ulcer of left foot with fat layer exposed (Chronic) Blister of foot, right (Acute) Lower extremity edema (Chronic) Type 2 diabetes mellitus with diabetic polyneuropathy (Chronic) Malnutrition (Chronic) Obesity (Chronic) Assessment: Right heel ulcer with delayed healing. lateral left foot ulcer. New plantar right heel ulcer and blister, no infection. Central left foot ulcer healed. Diabetes with neuropathy. lymphedema and continued leg swelling. peripheral vacular disease. venous insufficiency Plan: I discussed his case and treatment plan. Subcutaneous excisional debridement to right heel (old and new sites) and left lateral foot ulcer sites performed today as noted in the clinical panel. He was reassured there are no local signs of infection noted today. It is noted he completed a full course of advanced wound care product, epifix,application. To apply Regranex to the ulcer sites 24 hours to the left foot ulcer. To apply an aperture pad to offload the left central stump ulcer site. I suspect tissue her sock may be rubbing on this site. I evaluate his surgical shoe today. It is okay to continue use. I recommend he uses Aquacel on the right heel ulcer sites due to his increased drainage reported the blister was drained and he was reassured no deep tissue infection is noted. . To maintain improved skin integrity by applying lac hydrin lotion to both legs daily. Continue circaid wraps bilateral legs daily; it is okay to apply tubigrip prior to application of CircAid foot wrap to better keep his wound dressings in place. To continue compression pump device daily; he is doing well with this. To proceed as previously advised with his lymphedema follow-up as advised. He is discharged from the [facility] at this time. Farrow compression garments to promote improved continued edema management at a more proximal level was approved for right lower extremity use; to use as advised. It is noted he was not approved for the left lower extremity because he did not meet qualifying criteria of open left leg current ulcer site. To continue diuretic medications per primary care physician.To elevate legs at rest. Compliance is imperative and this was discussed again today. To continue with portion control for weight loss and proper glycemic control and nutritional supplementation to optimize healing. His hemoglobin A1c went from 9.0 to 7.4. To continue strict offloading to all these ulcer sites. He has a donut offloading pillow and he was advised to use this. To follow-up with Dr. Peng as advised for the recommended bilateral intervention, venous. His recent vascular intervention in the left lower extremity is noted. All of his questions were answered. He understands he is still at risk for limb loss. . To follow-up at the wound care center in 1 week or call sooner if he has any questions or concerns.
== END 2018-04-15 23:59 ==
LOC: WC 11:00
PROVIDERS: Family Provider Family Medicine; PCP Family Medicine; Referring Provider Podiatrist; Visit Provider Podiatrist
DX: E11.621 Type 2 diabetes mellitus with foot ulcer (principal); E11.42 Type 2 diabetes mellitus with diabetic polyneuropathy; E11.51 Type 2 diabetes mellitus with diabetic peripheral angiopathy without gangrene; L97.412 Non-pressure chronic ulcer of right heel and midfoot with fat layer exposed; L97.522 Non-pressure chronic ulcer of other part of left foot with fat layer exposed; I89.0 Lymphedema, not elsewhere classified; R60.0 Localized edema; M86.671 Other chronic osteomyelitis, right ankle and foot
CPT/HCPCS: 11042

== ENCOUNTER 2018-05-12 10:45 | Outpatient (RCR) | payer MEDICARE, MEDICAID, SELFPAY ==
[2018-04-16 00:59] VITALS: BP 164/77; PULSE 55; RESP 18; TEMP 36.4
[2018-04-21 10:30] VITALS: BP 165/82; PULSE 50; RESP 18; TEMP 36.3; BMI 53.1
--- NOTE | 2018-04-21 11:35 | PCM.WC.PN ---
(1) Chronic ulcer of left foot with fat layer exposed Status: Chronic Current Visit: Yes Code(s): L97.522 - Non-pressure chronic ulcer of other part of left foot with fat layer exposed (2) Ulcer of right foot with fat layer exposed Status: Chronic Current Visit: Yes Code(s): L97.512 - Non-pressure chronic ulcer of other part of right foot with fat layer exposed (3) Venous insufficiency Status: Chronic Current Visit: Yes Code(s): I87.2 - Venous insufficiency (chronic) (peripheral) (4) Peripheral vascular disease Status: Chronic Current Visit: Yes Code(s): I73.9 - Peripheral vascular disease, unspecified (5) Lower extremity edema Status: Chronic Current Visit: Yes Code(s): R60.0 - Localized edema (6) Type 2 diabetes mellitus with diabetic polyneuropathy Status: Chronic Current Visit: Yes Code(s): E11.42 - Type 2 diabetes mellitus with diabetic polyneuropathy (7) Malnutrition Status: Chronic Current Visit: Yes Code(s): E46 - Unspecified protein-calorie malnutrition Type of Wound Date of Service: 04/21/18 Chief Complaint: Right heel ulcer with delayed healing. newer right medial heel ulce. 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 left lateral foot ulcer. lymphedema and continued leg swelling History of Wound: 62 year old male was seen for right heel ulcer with chronic osteomyelitis, left foot ulcers and also a new right heel blister with drainage. The onset of this new condition occurred approximately 3 days ago. He denies trauma. He did have some extra activity going on but he does not recall when this exactly happened. He denies fever, chill, nausea, vomiting. He has Regranex at home and home health has been helping when he has help available with the dressing changes. He uses the compession pump 2-3 times a day with significant edema reduction. He completed his vascular surgery angioplasty with Dr. Peng for the left lower extremity. He has received treatment at the lymphedema clinic as well. He denies redness or odor. He denies redness odor or other illness. He is a CircAid compression wraps and still has trouble with swelling because the swelling extends beyond the level of this previous compression wrap. He is followed with Dr. Peng as advised and now has bilateral venous procedures planned in the near future. He is not able to come to his follow-up appointment next week due to a prior commitment. Progress of Wound: improving to right heel and left ulcer sites - Physical Exam Vital Signs Temp Pulse Resp BP 97.3 F L 50 L 18 165/82 H 04/21/18 10:30 04/21/18 10:30 04/21/18 10:30 04/21/18 10:30 General: Alert, Oriented x3, Cooperative Extremities: No cyanosis, Capillary Refill Less than 3 Seconds, No Calf Tenderness - Negative Keara and Simmons sign bilateral, Diminished Peripheral Pulses, Edema - Bilateral lower extremities with hyperpigmentation unchanged compared to previous visits, - - Transmetatarsal amputation left lower extremity. Hallux amputation right lower extremity Skin: Ulcer/ Wound - No purulence, erythema, streaking, odor, infection, eschar, deep tissue exposure, infection bilateral lower extremities. The peripheral skin is hairless and atrophic. Wound Measurements and Assessment WC - Nurse 1 - General Ulcer Measurement Start: 04/21/18 10:30 Freq: Status: Active Protocol: Activity Type Activity Date Activity User E-Sign Co-Sign Detail Recorded Client Recorded Date Recorded By Document 04/21/18 10:30 RB [id number] 04/21/18 10:40 RB 04/21/18 10:30 Wound Center Nurse 1 [Ulcer Assessment] 20-right posterior heel -Combined with other wound No -Current Size (cm) - Length 0.6 -Current Size (cm) - Width 1.3 -Current Size (cm) - Depth 0.2 -Total Square Cm 0.78 -Photo Taken No -Tunneling No -Undermining/Tunneling No -Circular Undermining No -Exudate Amt Small -Exudate Type Serosanguineous -Wound Margin Distinct, Outline Attached -Granulation Amt Large (67-100%) -Granulation Quality [place] -Slough/Fibrin Yes -Necrosis Amt Medium (34-66%) -Necrotic Tissue Type Adherent Slough -Structure Exposed N/A -Texture (Susy-wound Skin Appearance) Assessed Callus -Moisture (Susy-wound Skin Appearance Assessed ) -Color (Susy-wound Skin Appearance) Assessed -Temperature (Susy-wound Skin No Abnormality Appearance) (Pt Warm) -Tenderness on Palpation (Susy-wound No Skin Appearance) -Ulcer Cleansing Wound Cleanser -Foul Odor after Cleansing No -Anesthetic Used 4% Lidocaine Solution #15-LEFT LATERAL FOOT -Combined with other wound No -Current Size (cm) - Length 0.1 -Current Size (cm) - Width 0.1 -Current Size (cm) - Depth 0.1 -Total Square Cm 0.01 -Photo Taken No -Tunneling No -Undermining/Tunneling No -Circular Undermining No -Exudate Amt Small -Exudate Type Serosanguineous -Wound Margin Distinct, Outline Attached -Granulation Amt Large (67-100%) -Granulation Quality [place] -Slough/Fibrin Yes -Necrosis Amt Small (1-33%) -Necrotic Tissue Type Adherent Slough -Structure Exposed N/A -Texture (Susy-wound Skin Appearance) Assessed -Moisture (Susy-wound Skin Appearance Assessed ) Dry/Scaly -Color (Susy-wound Skin Appearance) Assessed -Temperature (Susy-wound Skin No Abnormality Appearance) (Pt Warm) -Tenderness on Palpation (Susy-wound No Skin Appearance) -Ulcer Cleansing Wound Cleanser -Foul Odor after Cleansing No -Anesthetic Used 4% Lidocaine Solution #4 Left central TMA -Combined with other wound No -Current Size (cm) - Length 0.6 -Current Size (cm) - Width 0.2 -Current Size (cm) - Depth 0.3 -Total Square Cm 0.12 -Tunneling No -Undermining/Tunneling No -Circular Undermining No -Exudate Amt Small -Exudate Type Serosanguineous -Wound Margin Distinct, Outline Attached -Granulation Amt Large (67-100%) -Granulation Quality [place] -Slough/Fibrin Yes -Necrosis Amt Small (1-33%) -Necrotic Tissue Type Adherent Slough -Structure Exposed N/A -Texture (Susy-wound Skin Appearance) Assessed -Moisture (Susy-wound Skin Appearance Assessed ) -Color (Susy-wound Skin Appearance) Assessed -Temperature (Susy-wound Skin No Abnormality Appearance) (Pt Warm) -Tenderness on Palpation (Susy-wound No Skin Appearance) -Ulcer Cleansing Wound Cleanser -Foul Odor after Cleansing No -Anesthetic Used 4% Lidocaine Solution #1 right medial heel -Combined with other wound No -Current Size (cm) - Length 1 -Current Size (cm) - Width 1.8 -Current Size (cm) - Depth 0.3 -Total Square Cm 1.8 -Photo Taken No -Tunneling No -Undermining/Tunneling No -Circular Undermining No -Classification - Thickness Full Thickness without Exposed Support Structure -Exudate Amt Small -Exudate Type Serosanguineous -Wound Margin Distinct, Outline Attached -Granulation Amt Large (67-100%) -Granulation Quality [place] -Slough/Fibrin Yes -Necrosis Amt Small (1-33%) -Necrotic Tissue Type Adherent Slough -Structure Exposed N/A -Texture (Susy-wound Skin Appearance) Assessed -Moisture (Susy-wound Skin Appearance Assessed ) -Color (Susy-wound Skin Appearance) Assessed -Temperature (Susy-wound Skin No Abnormality Appearance) (Pt Warm) -Tenderness on Palpation (Susy-wound No Skin Appearance) -Ulcer Cleansing Wound Cleanser -Foul Odor after Cleansing No -Anesthetic Used 4% Lidocaine Solution [Edema Assessment] -Lower Limb Edema Present Yes -Right Calf (cm) 52.5 -Right Ankle (cm) 28 -Left Calf (cm) 50 -Left Ankle (cm) 29 WC - Nurse 2 - General Ulcer CM Notes Start: 04/21/18 10:30 Freq: Status: Active Protocol: Activity Type Activity Date Activity User E-Sign Co-Sign Detail Recorded Client Recorded Date Recorded By Document 04/21/18 11:12 NORRIS [id number] 04/21/18 11:14 NORRIS 04/21/18 11:12 Wound Center Nurse 2 [Procedure/Treatment] 20-right posterior heel -Time 11:12 -Correct Patient Yes -Correct Side, Site, Position Yes -Correct Procedure Yes -Procedure Performed Yes -Type of Procedure Debridement -Clinical Debridement Subcutaneous -Post Debridement Size (cm) - Length 0.6 -Post Debridement Size (cm) - Width 1.4 -Post Debridement Size (cm) - Depth 0.2 -Total Square Cm 0.84 -Wound/Ulcer Outcome Not Healed -Ulcer Cleansing Rinsed/ Irrigated with Saline -Foul Odor after Cleansing No -Bioengineered Tissue No -Bleeding Controlled with Pressure -Offloading Yes -Type of Offloading Surgical Shoe -Treatment Response Procedure Tolerated Well #15-LEFT LATERAL FOOT -Time 11:12 -Correct Patient Yes -Correct Side, Site, Position Yes -Correct Procedure Yes -Procedure Performed Yes -Type of Procedure Debridement -Clinical Debridement Subcutaneous -Post Debridement Size (cm) - Length 0.2 -Post Debridement Size (cm) - Width 0.1 -Post Debridement Size (cm) - Depth 0.1 -Total Square Cm 0.02 -Wound/Ulcer Outcome Not Healed -Ulcer Cleansing Rinsed/ Irrigated with Saline -Foul Odor after Cleansing No -Bioengineered Tissue No -Bleeding Controlled with Pressure -Offloading Yes -Type of Offloading Surgical Shoe -Treatment Response Procedure Tolerated Well #4 Left central TMA -Time 11:13 -Correct Patient Yes -Correct Side, Site, Position Yes -Correct Procedure Yes -Procedure Performed Yes -Type of Procedure Debridement -Clinical Debridement Subcutaneous -Post Debridement Size (cm) - Length 0.6 -Post Debridement Size (cm) - Width 0.3 -Post Debridement Size (cm) - Depth 0.3 -Total Square Cm 0.18 -Wound/Ulcer Outcome Not Healed -Ulcer Cleansing Rinsed/ Irrigated with Saline -Foul Odor after Cleansing No -Bioengineered Tissue No -Bleeding Controlled with Pressure -Offloading Yes -Type of Offloading Surgical Shoe -Treatment Response Procedure Tolerated Well #1 right medial heel -Time 11:13 -Correct Patient Yes -Correct Side, Site, Position Yes -Correct Procedure Yes -Procedure Performed Yes -Type of Procedure Debridement -Clinical Debridement Subcutaneous -Post Debridement Size (cm) - Length 1 -Post Debridement Size (cm) - Width 1.9 -Post Debridement Size (cm) - Depth 0.3 -Total Square Cm 1.9 -Wound/Ulcer Outcome Not Healed -Ulcer Cleansing Rinsed/ Irrigated with Saline -Foul Odor after Cleansing No -Bioengineered Tissue No -Bleeding Controlled with Pressure -Offloading Yes -Type of Offloading Surgical Shoe -Treatment Response Procedure Tolerated Well [See Physician Procedure note for Specifics] Pain Scale: 0-10 Numeric [Pain] -Is Patient Pain Free? Yes Musculoskeletal: No Tenderness to Palpation of Joints or Extremities, Muscle Wasting Neurological: - - Lack of normal epicritic sensation light touch bilateral consistent with neuropathy Psych/Mental Status: Normal Affect, Appropriate Debridement Note Post-Debridement Measurements/Treatment WC - Nurse 2 - General Ulcer CM Notes Start: 04/21/18 10:30 Freq: Status: Active Protocol: Activity Type Activity Date Activity User E-Sign Co-Sign Detail Recorded Client Recorded Date Recorded By Document 04/21/18 11:12 NORRIS [id number] 04/21/18 11:14 NORRIS 04/21/18 11:12 Wound Center Nurse 2 20-right posterior heel -Time 11:12 -Correct Patient Yes -Correct Side, Site, Position Yes -Correct Procedure Yes -Procedure Performed Yes -Type of Procedure Debridement -Clinical Debridement Subcutaneous -Post Debridement Size (cm) - Length 0.6 -Post Debridement Size (cm) - Width 1.4 -Post Debridement Size (cm) - Depth 0.2 -Total Square Cm 0.84 -Wound/Ulcer Outcome Not Healed -Ulcer Cleansing Rinsed/ Irrigated with Saline -Foul Odor after Cleansing No -Bioengineered Tissue No -Bleeding Controlled with Pressure -Offloading Yes -Type of Offloading Surgical Shoe -Treatment Response Procedure Tolerated Well #15-LEFT LATERAL FOOT -Time 11:12 -Correct Patient Yes -Correct Side, Site, Position Yes -Correct Procedure Yes -Procedure Performed Yes -Type of Procedure Debridement -Clinical Debridement Subcutaneous -Post Debridement Size (cm) - Length 0.2 -Post Debridement Size (cm) - Width 0.1 -Post Debridement Size (cm) - Depth 0.1 -Total Square Cm 0.02 -Wound/Ulcer Outcome Not Healed -Ulcer Cleansing Rinsed/ Irrigated with Saline -Foul Odor after Cleansing No -Bioengineered Tissue No -Bleeding Controlled with Pressure -Offloading Yes -Type of Offloading Surgical Shoe -Treatment Response Procedure Tolerated Well #4 Left central TMA -Time 11:13 -Correct Patient Yes -Correct Side, Site, Position Yes -Correct Procedure Yes -Procedure Performed Yes -Type of Procedure Debridement -Clinical Debridement Subcutaneous -Post Debridement Size (cm) - Length 0.6 -Post Debridement Size (cm) - Width 0.3 -Post Debridement Size (cm) - Depth 0.3 -Total Square Cm 0.18 -Wound/Ulcer Outcome Not Healed -Ulcer Cleansing Rinsed/ Irrigated with Saline -Foul Odor after Cleansing No -Bioengineered Tissue No -Bleeding Controlled with Pressure -Offloading Yes -Type of Offloading Surgical Shoe -Treatment Response Procedure Tolerated Well #1 right medial heel -Time 11:13 -Correct Patient Yes -Correct Side, Site, Position Yes -Correct Procedure Yes -Procedure Performed Yes -Type of Procedure Debridement -Clinical Debridement Subcutaneous -Post Debridement Size (cm) - Length 1 -Post Debridement Size (cm) - Width 1.9 -Post Debridement Size (cm) - Depth 0.3 -Total Square Cm 1.9 -Wound/Ulcer Outcome Not Healed -Ulcer Cleansing Rinsed/ Irrigated with Saline -Foul Odor after Cleansing No -Bioengineered Tissue No -Bleeding Controlled with Pressure -Offloading Yes -Type of Offloading Surgical Shoe -Treatment Response Procedure Tolerated Well Pain Scale: 0-10 Numeric Is Patient Pain Free? Yes Wound debrided: medial heel Laterality: Right Wound Grade/Stage: grade 1 Type of Debridement: Excisional debridement Anesthesia Used: 5% Lidocaine Gel Depth: in the subcutaneous layer Percentage of wound debrided: 100 Instrument Used: #15 blade Tissue Removed: fibrous, devitalized subcutaneous, biofilm, slough Severity: Fat Layer Exposed Amount of bleeding with debridement: Mild Bleeding Controlled with: Pressure Patient tolerated procedure well - Additional Wound Wound debrided: posterior heel Laterality: Right Wound Grade/Stage: grade 3 Type of Debridement: Excisional debridement Anesthesia Used: 5% Lidocaine Gel Depth: in the subcutaneous layer Percentage of wound debrided: 100 Instrument Used: #15 blade Tissue Removed: fibrous, devitalized subcutaneous, biofilm, slough Severity: Fat Layer Exposed Amount of bleeding with debridement: Mild Bleeding Controlled with: Pressure Patient tolerated procedure: Patient tolerated procedure well - Additional Wound Wound debrided: lateral stump Laterality: Left Wound Grade/Stage: grade 1 Type of Debridement: Excisional debridement Anesthesia Used: 5% Lidocaine Gel Depth: in the subcutaneous layer Percentage of wound debrided: 100 Instrument Used: #15 blade Tissue Removed: fibrous, devitalized subcutaneous, biofilm, slough Severity: Fat Layer Exposed Amount of bleeding with debridement: Mild Bleeding Controlled with: Pressure Patient tolerated procedure: Patient tolerated procedure well - Additional Wound Wound debrided: central stump (reopen) Laterality: Left Wound Grade/Stage: grade 1 Type of Debridement: Excisional debridement Anesthesia Used: 5% Lidocaine Gel Depth: in the subcutaneous layer Percentage of wound debrided: 100 Instrument Used: #15 blade Tissue Removed: fibrous, devitalized subcutaneous, biofilm, slough Severity: Fat Layer Exposed Amount of bleeding with debridement: Mild Bleeding Controlled with: Pressure Patient tolerated procedure: Patient tolerated procedure well Assessment/Plan Active Problems Venous insufficiency (Chronic) Peripheral vascular disease (Chronic) Ulcer of right foot with fat layer exposed (Chronic) Chronic ulcer of left foot with fat layer exposed (Chronic) Lower extremity edema (Chronic) Type 2 diabetes mellitus with diabetic polyneuropathy (Chronic) Malnutrition (Chronic) Assessment: Right heel ulcer with delayed healing. lateral left foot ulcer. plantar medial right heel ulcer and blister, no infection. Central left foot ulcer healed. Diabetes with neuropathy. lymphedema and continued leg swelling. peripheral vacular disease. venous insufficiency Plan: I discussed his case and treatment plan. Subcutaneous excisional debridement to right heel (old and new sites) and left lateral foot ulcer sites performed today as noted in the clinical panel. He was reassured there are no local signs of infection noted today. It is noted he completed a full course of advanced wound care product, epifix,application. To apply Elda or Promogran to all ulcer sites daily. To apply an aperture pad to offload the left central stump ulcer site. I suspect tissue her sock may be rubbing on this site. I evaluate his surgical shoe today. It is okay to continue use. . To maintain improved skin integrity by applying lac hydrin lotion to both legs daily. Continue circaid wraps bilateral legs daily; it is okay to apply tubigrip prior to application of CircAid foot wrap to better keep his wound dressings in place. To continue compression pump device daily; he is doing well with this. To proceed as previously advised with his lymphedema follow-up as advised. He is discharged from the [facility] at this time. [place]arrow compression garments to promote improved continued edema management at a more proximal level was approved for right lower extremity use; to use as advised. It is noted he was not approved for the left lower extremity because he did not meet qualifying criteria of open left leg current ulcer site. To continue diuretic medications per primary care physician.To elevate legs at rest. Compliance is imperative and this was discussed again today. To continue with portion control for weight loss and proper glycemic control and nutritional supplementation to optimize healing. His hemoglobin A1c went from 9.0 to 7.4. To continue strict offloading to all these ulcer sites. He has a donut offloading pillow and he was advised to use this. To follow-up with Dr. Peng as advised for the recommended bilateral intervention, venous. His recent vascular intervention in the left lower extremity is noted. All of his questions were answered. He understands he is still at risk for limb loss. . To follow-up at the wound care center in 1 week or call sooner if he has any questions or concerns.
[2018-04-28 11:04] VITALS: BP 158/76; PULSE 50; RESP 18; TEMP 36.2; BMI 53.1
--- NOTE | 2018-04-28 12:06 | PN.PCM_ITS ---
(1) Chronic ulcer of left foot with fat layer exposed Status: Chronic Current Visit: Yes Code(s): L97.522 - Non-pressure chronic ulcer of other part of left foot with fat layer exposed (2) Ulcer of right foot with fat layer exposed Status: Chronic Current Visit: Yes Code(s): L97.512 - Non-pressure chronic ulcer of other part of right foot with fat layer exposed (3) Venous insufficiency Status: Chronic Current Visit: Yes Code(s): I87.2 - Venous insufficiency (chronic) (peripheral) (4) Peripheral vascular disease Status: Chronic Current Visit: Yes Code(s): I73.9 - Peripheral vascular disease, unspecified (5) Lower extremity edema Status: Chronic Current Visit: Yes Code(s): R60.0 - Localized edema (6) Type 2 diabetes mellitus with diabetic polyneuropathy Status: Chronic Current Visit: Yes Code(s): E11.42 - Type 2 diabetes mellitus with diabetic polyneuropathy (7) Malnutrition Status: Chronic Current Visit: Yes Code(s): E46 - Unspecified protein- calorie malnutrition Type of Wound Date of Service: 04/28/18 Chief Complaint: Right heel ulcer with delayed healing. newer right medial heel ulcer. 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 left lateral foot ulcer healed. lymphedema and continued leg swelling History of Wound: 62 year old male was seen for right heel ulcer with chronic osteomyelitis, right plantar heel ulcer, and left foot ulcers . He denies drainage to the outer left foot ulcer site. He denies increased activity lately. He denies fever, chill, nausea, vomiting. He has Regranex at home and home health has been helping when he has help available with the dressing changes. He uses the compression pumps 2-3 times a day with significant edema reduction. He completed his vascular surgery angioplasty with Dr. Peng for the left lower extremity. He has received treatment at the lymphedema clinic as well. He denies redness or odor. He denies redness odor or other illness. He uses CircAid compression wraps. He has followed with Dr. Peng as advised and now has bilateral venous procedures planned in the near future. Progress of Wound: improving to right heel and left ulcer sites. Lateral left foot ulcer site healed - Physical Exam Vital Signs Temp Pulse Resp BP 97.1 F L 50 L 18 158/76 H 04/28/18 11:04 04/28/18 11:04 04/28/18 11:04 04/28/18 11:04 General: Alert, Oriented x3, Cooperative Extremities: No cyanosis, Capillary Refill Less than 3 Seconds - All digits right foot and to amputation stump site left lower extremity, No Calf Tenderness - Negative [place] and Simmons bilateral, Diminished Peripheral Pulses, Edema - Bilateral lower extremities controlled, - - Left transmetatarsal amputation stump site. Right hallux amputation Skin: Ulcer/ Wound - No purulence, erythema, streaking, odor, or infection. The ulcer beds are all granular. There is full epithelialization noted to the late ral left foot previous ulcer site and this is healed Wound Measurements and Assessment WC - Nurse 1 - General Ulcer Measurement Start: 04/21/18 10:30 Freq: Status: Active Protocol: Activity Type Activity Date Activity User E-Sign Co-Sign Detail Recorded Client Recorded Date Recorded By Document 04/28/18 11:04 RB [id number] 04/28/18 11:20 RB 04/28/18 11:04 Wound Center Nurse 1 [Ulcer Assessment] 20-right posterior heel -Combined with other wound No -Current Size (cm) - Length 0.5 -Current Size (cm) - Width 1 -Current Size (cm) - Depth 0.4 -Total Square Cm 0.5 -Photo Taken No -Tunneling No -Undermining/Tunneling No -Circular Undermining No -Exudate Amt Small -Exudate Type Serosanguineous -Wound Margin Thickened -Granulation Amt Medium (34-66%) -Granulation Quality [place] -Slough/Fibrin Yes -Necrosis Amt Medium (34-66%) -Necrotic Tissue Type Adherent Slough -Structure Exposed N/A -Texture (Susy-wound Skin Appearance) Callus -Moisture (Susy-wound Skin Appearance Assessed ) Dry/Scaly -Color (Susy-wound Skin Appearance) Assessed -Temperature (Susy-wound Skin No Abnormality Appearance) (Pt Warm) -Tenderness on Palpation (Susy-wound No Skin Appearance) -Ulcer Cleansing Rinsed/ Irrigated with Saline -Foul Odor after Cleansing No -Anesthetic Used 5% Lidocaine Gel #15-LEFT LATERAL FOOT -Combined with other wound No -Current Size (cm) - Length 0.3 -Current Size (cm) - Width 0.3 -Current Size (cm) - Depth 0.2 -Total Square Cm 0.09 -Photo Taken No -Tunneling No -Undermining/Tunneling No -Circular Undermining No -Exudate Amt Small -Exudate Type Serosanguineous -Wound Margin Distinct, Outline Attached -Granulation Amt Medium (34-66%) -Granulation Quality [place] -Slough/Fibrin Yes -Necrosis Amt Medium (34-66%) -Necrotic Tissue Type Adherent Slough -Structure Exposed N/A -Texture (Susy-wound Skin Appearance) Callus -Moisture (Susy-wound Skin Appearance Assessed ) -Color (Susy-wound Skin Appearance) Assessed -Temperature (Susy-wound Skin No Abnormality Appearance) (Pt Warm) -Tenderness on Palpation (Susy-wound No Skin Appearance) -Ulcer Cleansing Wound Cleanser -Foul Odor after Cleansing No -Anesthetic Used 5% Lidocaine Gel #4 Left central TMA -Combined with other wound No -Current Size (cm) - Length 1 -Current Size (cm) - Width 0.3 -Current Size (cm) - Depth 0.3 -Total Square Cm 0.3 -Photo Taken No -Tunneling No -Undermining/Tunneling No -Circular Undermining No -Exudate Amt Small -Exudate Type Serosanguineous -Wound Margin Distinct, Outline Attached -Granulation Amt Medium (34-66%) -Granulation Quality [place] -Slough/Fibrin Yes -Necrosis Amt Medium (34-66%) -Necrotic Tissue Type Adherent Slough -Structure Exposed N/A -Texture (Susy-wound Skin Appearance) Assessed -Moisture (Susy-wound Skin Appearance Assessed ) -Color (Susy-wound Skin Appearance) Assessed -Temperature (Susy-wound Skin No Abnormality Appearance) (Pt Warm) -Tenderness on Palpation (Susy-wound No Skin Appearance) -Ulcer Cleansing Wound Cleanser -Foul Odor after Cleansing No -Anesthetic Used 5% Lidocaine Gel #1 right medial heel -Combined with other wound No -Current Size (cm) - Length 1.4 -Current Size (cm) - Width 0.9 -Current Size (cm) - Depth 0.3 -Total Square Cm 1.26 -Photo Taken No -Tunneling No -Undermining/Tunneling No -Circular Undermining No -Exudate Amt Small -Exudate Type Serosanguineous -Wound Margin Distinct, Outline Attached -Granulation Amt Medium (34-66%) -Granulation Quality [place] -Slough/Fibrin Yes -Necrosis Amt Medium (34-66%) -Necrotic Tissue Type Adherent Slough -Structure Exposed N/A -Texture (Susy-wound Skin Appearance) Assessed Callus -Moisture (Susy-wound Skin Appearance Assessed ) -Color (Susy-wound Skin Appearance) Assessed -Temperature (Susy-wound Skin No Abnormality Appearance) (Pt Warm) -Tenderness on Palpation (Susy-wound No Skin Appearance) -Ulcer Cleansing Wound Cleanser -Foul Odor after Cleansing No -Anesthetic Used 5% Lidocaine Gel [Edema Assessment] -Lower Limb Edema Present Yes -Right Calf (cm) 52.5 -Right Ankle (cm) 28 -Left Calf (cm) 52 -Left Ankle (cm) 28.5 WC - Nurse 2 - General Ulcer CM Notes Start: 04/21/18 10:30 Freq: Status: Active Protocol: Activity Type Activity Date Activity User E-Sign Co-Sign Detail Recorded Client Recorded Date Recorded By Document 04/28/18 11:29 NORRIS [id number] 04/28/18 11:33 NORRIS 04/28/18 11:29 Wound Center Nurse 2 [Procedure/Treatment] 20-right posterior heel -Time 11:29 -Correct Patient Yes -Correct Side, Site, Position Yes -Correct Procedure Yes -Procedure Performed Yes -Type of Procedure Debridement -Clinical Debridement Subcutaneous -Post Debridement Size (cm) - Length 0.7 -Post Debridement Size (cm) - Width 1.8 -Post Debridement Size (cm) - Depth 0.1 -Total Square Cm 1.26 -Wound/Ulcer Outcome Not Healed -Ulcer Cleansing Rinsed/ Irrigated with Saline -Foul Odor after Cleansing No -Bioengineered Tissue No -Bleeding Controlled with Pressure -Offloading Yes -Type of Offloading Surgical Shoe -Treatment Response Procedure Tolerated Well #15-LEFT LATERAL FOOT -Correct Patient No -Correct Side, Site, Position No -Correct Procedure No -Procedure Performed No -Post Debridement Size (cm) - Length 0 -Post Debridement Size (cm) - Width 0 -Post Debridement Size (cm) - Depth 0 -Total Square Cm 0 -Wound/Ulcer Outcome Healed- Epithelialized #4 Left central TMA -Time 11:30 -Correct Patient Yes -Correct Side, Site, Position Yes -Correct Procedure Yes -Procedure Performed Yes -Type of Procedure Debridement -Clinical Debridement Subcutaneous -Post Debridement Size (cm) - Length 0.5 -Post Debridement Size (cm) - Width 0.2 -Post Debridement Size (cm) - Depth 0.1 -Total Square Cm 0.10 -Wound/Ulcer Outcome Not Healed -Ulcer Cleansing Rinsed/ Irrigated with Saline -Foul Odor after Cleansing No -Bioengineered Tissue No -Bleeding Controlled with Pressure -Offloading Yes -Type of Offloading Surgical Shoe -Treatment Response Procedure Tolerated Well #1 right medial heel -Time 11:30 -Correct Patient Yes -Correct Side, Site, Position Yes -Correct Procedure Yes -Procedure Performed Yes -Type of Procedure Debridement -Clinical Debridement Subcutaneous -Post Debridement Size (cm) - Length 1.2 -Post Debridement Size (cm) - Width 1.5 -Post Debridement Size (cm) - Depth 0.2 -Total Square Cm 1.80 -Wound/Ulcer Outcome Not Healed -Ulcer Cleansing Rinsed/ Irrigated with Saline -Foul Odor after Cleansing No -Bioengineered Tissue No -Bleeding Controlled with Pressure -Offloading Yes -Type of Offloading Surgical Shoe -Treatment Response Procedure Tolerated Well [See Physician Procedure note for Specifics] Pain Scale: 0-10 Numeric [Pain] -Is Patient Pain Free? Yes Musculoskeletal: No Tenderness to Palpation of Joints or Extremities, Muscle Wasting Neurological: - - Lack of epicritic sensation light touch bilateral lower extremities Psych/Mental Status: Normal Affect, Appropriate Debridement Note Post-Debridement Measurements/Treatment WC - Nurse 2 - General Ulcer CM Notes Start: 04/21/18 10:30 Freq: Status: Active Protocol: Activity Type Activity Date Activity User E-Sign Co-Sign Detail Recorded Client Recorded Date Recorded By Document 04/21/18 11:12 JF [id number] 04/21/18 11:14 Document 04/28/18 11:29 JF [id number] 04/28/18 11:33 04/21/18 04/28/18 11:12 11:29 Wound Center Nurse 2 20-right posterior heel -Time 11:12 11:29 -Correct Patient Yes Yes -Correct Side, Site, Position Yes Yes -Correct Procedure Yes Yes -Procedure Performed Yes Yes -Type of Procedure Debridement Debridement -Clinical Debridement Subcutaneous Subcutaneous -Post Debridement Size (cm) - Length 0.6 0.7 -Post Debridement Size (cm) - Width 1.4 1.8 -Post Debridement Size (cm) - Depth 0.2 0.1 -Total Square Cm 0.84 1.26 -Wound/Ulcer Outcome Not Healed Not Healed -Ulcer Cleansing Rinsed/ Rinsed/ Irrigated with Irrigated with Saline Saline -Foul Odor after Cleansing No No -Bioengineered Tissue No No -Bleeding Controlled with Pressure Pressure -Offloading Yes Yes -Type of Offloading Surgical Shoe Surgical Shoe -Treatment Response Procedure Procedure Tolerated Well Tolerated Well #15-LEFT LATERAL FOOT -Time 11:12 -Correct Patient Yes No -Correct Side, Site, Position Yes No -Correct Procedure Yes No -Procedure Performed Yes No -Type of Procedure Debridement -Clinical Debridement Subcutaneous -Post Debridement Size (cm) - Length 0.2 0 -Post Debridement Size (cm) - Width 0.1 0 -Post Debridement Size (cm) - Depth 0.1 0 -Total Square Cm 0.02 0 -Wound/Ulcer Outcome Not Healed Healed- Epithelialized -Ulcer Cleansing Rinsed/ Irrigated with Saline -Foul Odor after Cleansing No -Bioengineered Tissue No -Bleeding Controlled with Pressure -Offloading Yes -Type of Offloading Surgical Shoe -Treatment Response Procedure Tolerated Well #4 Left central TMA -Time 11:13 11:30 -Correct Patient Yes Yes -Correct Side, Site, Position Yes Yes -Correct Procedure Yes Yes -Procedure Performed Yes Yes -Type of Procedure Debridement Debridement -Clinical Debridement Subcutaneous Subcutaneous -Post Debridement Size (cm) - Length 0.6 0.5 -Post Debridement Size (cm) - Width 0.3 0.2 -Post Debridement Size (cm) - Depth 0.3 0.1 -Total Square Cm 0.18 0.10 -Wound/Ulcer Outcome Not Healed Not Healed -Ulcer Cleansing Rinsed/ Rinsed/ Irrigated with Irrigated with Saline Saline -Foul Odor after Cleansing No No -Bioengineered Tissue No No -Bleeding Controlled with Pressure Pressure -Offloading Yes Yes -Type of Offloading Surgical Shoe Surgical Shoe -Treatment Response Procedure Procedure Tolerated Well Tolerated Well #1 right medial heel -Time 11:13 11:30 -Correct Patient Yes Yes -Correct Side, Site, Position Yes Yes -Correct Procedure Yes Yes -Procedure Performed Yes Yes -Type of Procedure Debridement Debridement -Clinical Debridement Subcutaneous Subcutaneous -Post Debridement Size (cm) - Length 1 1.2 -Post Debridement Size (cm) - Width 1.9 1.5 -Post Debridement Size (cm) - Depth 0.3 0.2 -Total Square Cm 1.9 1.80 -Wound/Ulcer Outcome Not Healed Not Healed -Ulcer Cleansing Rinsed/ Rinsed/ Irrigated with Irrigated with Saline Saline -Foul Odor after Cleansing No No -Bioengineered Tissue No No -Bleeding Controlled with Pressure Pressure -Offloading Yes Yes -Type of Offloading Surgical Shoe Surgical Shoe -Treatment Response Procedure Procedure Tolerated Well Tolerated Well Pain Scale: 0-10 Numeric Is Patient Pain Free? Yes Yes Wound debrided: medial posterior heel Laterality: Right Wound Grade/Stage: grade 3 Type of Debridement: Excisional debridement Anesthesia Used: 5% Lidocaine Gel Depth: in the subcutaneous layer Percentage of wound debrided: 100 Instrument Used: #15 blade Tissue Removed: fibrous, devitalized subcutaneous, biofilm, slough Severity: Fat Layer Exposed Amount of bleeding with debridement: Mild Bleeding Controlled with: Pressure Patient tolerated procedure well - Additional Wound Wound debrided: plantar heel Laterality: Right Wound Grade/Stage: grade 1 Type of Debridement: Excisional debridement Anesthesia Used: 5% Lidocaine Gel Depth: in the subcutaneous layer Percentage of wound debrided: 100 Instrument Used: #15 blade Tissue Removed: fibrous, devitalized subcutaneous, biofilm, slough Severity: Fat Layer Exposed Amount of bleeding with debridement: Mild Bleeding Controlled with: Pressure Patient tolerated procedure: Patient tolerated procedure well - Additional Wound Wound debrided: distal amputation stump site Laterality: Left Wound Grade/Stage: grade 1 Type of Debridement: Excisional debridement Anesthesia Used: 5% Lidocaine Gel Depth: in the subcutaneous layer Percentage of wound debrided: 100 Instrument Used: #15 blade Tissue Removed: fibrous, devitalized subcutaneous, biofilm, slough Severity: Fat Layer Exposed Amount of bleeding with debridement: Mild Bleeding Controlled with: Pressure Patient tolerated procedure: Patient tolerated procedure well Assessment/Plan Active Problems Venous insufficiency (Chronic) Peripheral vascular disease (Chronic) Ulcer of right foot with fat layer exposed (Chronic) Chronic ulcer of left foot with fat layer exposed (Chronic) Lower extremity edema (Chronic) Type 2 diabetes mellitus with diabetic polyneuropathy (Chronic) Malnutrition (Chronic) Assessment: Right heel ulcer with delayed healing. Plantar right heel ulcer with fat layer exposed. lateral left foot ulcer healed. Central left foot ulcer reopened and stable. Diabetes with neuropathy. lymphedema and continued leg swelling. peripheral vacular disease. venous insufficiency Plan: I discussed his case and treatment plan. Subcutaneous excisional debridement to right heel (old and new sites) and central left amputation stump foot site performed today as noted in the clinical panel. He was reassured there are no local signs of infection noted today. It is noted he completed a full course of advanced wound care product, epifix,application. To apply Regranex to all ulcer sites daily; he is on his last tube at this time. To apply an aperture pad to offload the left central stump ulcer site. I suspect tissue her sock may be rubbing on this site. I evaluate his surgical shoe today. It is okay to continue use. . To maintain improved skin integrity by applying lac hydrin lotion to both legs daily. Continue circaid wraps bilateral legs daily; it is okay to apply tubigrip prior to application of CircAid foot wrap to better keep his wound dressings in place. To continue compression pump device daily; he is doing well with this. To proceed as previously advised with his lymphedema follow-up as advised. He is discharged from the [facility] at this time. [place] compression garments to promote improved continued edema management at a more proximal level was approved for right lower extremity use; to use as advised. It is noted he was not approved for the left lower extremity because he did not meet qualifying criteria of open left leg current ulcer site. To continue diuretic medications per primary care physician.To elevate legs at rest. Compliance is imperative and this was discussed again today. To continue with portion control for weight loss and proper glycemic control and nutritional supplementation to optimize healing. His hemoglobin A1c went from 9.0 to 7.4. To continue strict offloading to all these ulcer sites. He has a donut offloading pillow and he was advised to use this. To follow-up with Dr. Peng as advised for the recommended bilateral intervention, venous. His recent vascular intervention in the left lower extremity is noted. All of his questions were answered. He understands he is still at risk for limb loss. . To follow-up at the wound care center in 1 week or call sooner if he has any questions or concerns.
[2018-05-12 11:10] VITALS: BP 143/73; PULSE 60; RESP 18; TEMP 37.3; BMI 53.1
--- NOTE | 2018-05-12 13:02 | PN.PCM_ITS ---
(1) Chronic ulcer of left foot with fat layer exposed Status: Chronic Current Visit: Yes Code(s): L97.522 - Non-pressure chronic ulcer of other part of left foot with fat layer exposed (2) Ulcer of right foot with fat layer exposed Status: Chronic Current Visit: Yes Code(s): L97.512 - Non-pressure chronic ulcer of other part of right foot with fat layer exposed (3) Venous insufficiency Status: Chronic Current Visit: Yes Code(s): I87.2 - Venous insufficiency (chronic) (peripheral) (4) Peripheral vascular disease Status: Chronic Current Visit: Yes Code(s): I73.9 - Peripheral vascular disease, unspecified (5) Lower extremity edema Status: Chronic Current Visit: Yes Code(s): R60.0 - Localized edema (6) Type 2 diabetes mellitus with diabetic polyneuropathy Status: Chronic Current Visit: Yes Code(s): E11.42 - Type 2 diabetes mellitus with diabetic polyneuropathy (7) Malnutrition Status: Chronic Current Visit: Yes Code(s): E46 - Unspecified protein- calorie malnutrition Type of Wound Date of Service: 05/12/18 Chief Complaint: right medial heel ulcer. 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 left foot ulcer. lymphedema and continued leg swelling History of Wound: 62 year old male was seen for right heel ulcer with chronic osteomyelitis, right plantar heel ulcer, and left foot ulcers . He denies drainage to the outer left foot ulcer site. He denies increased activity lately. He denies fever, chill, nausea, vomiting. He has Regranex at home and home health has been helping when he has help available with the dressing changes. He uses the compression pumps 2-3 times a day with significant edema reduction. He completed his vascular surgery angioplasty with Dr. Peng for the left lower extremity. He has received treatment at the lymphedema clinic as well. He denies redness or odor. He denies redness odor or other illness. He uses CircAid compression wraps. He has followed with Dr. Peng as advised and now has bilateral venous procedures planned in the near future. He has not been able to use Lasix for the last 2 weeks and his legs have increased swelling and he is concerned of new blister formation wounds to the right leg. 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 Progress of Wound: improving - Physical Exam Vital Signs Temp Pulse Resp BP 99.1 F 60 18 143/73 H 05/12/18 11:10 05/12/18 11:10 05/12/18 11:10 05/12/18 11:10 General: Alert, Oriented x3, Cooperative Extremities: No cyanosis, Capillary Refill Less than 3 Seconds, No Calf Tenderness - Negative [place] and [place] bilateral, Diminished Peripheral Pulses, Edema - Increased bilateral lower extremities, - - Compartments soft bilateral lower extremities Skin: Ulcer/ Wound - No purulence, erythema, strength, motor, or infection or necrosis or deep exposed tissue bilateral. Epithelialization continues to the lateral left foot site. There are no active blisters visualized today to the right leg nor is there a new wound or infection noted. His skin has xerosis and is peeling and atrophic bilateral lower extremities. There is no maceration bilateral. Wound Measurements and Assessment WC - Nurse 1 - General Ulcer Measurement Start: 04/21/18 10:30 Freq: Status: Active Protocol: Activity Type Activity Date Activity User E-Sign Co-Sign Detail Recorded Client Recorded Date Recorded By Document 05/12/18 11:10 AN [id number] 05/12/18 11:26 AN 05/12/18 11:10 Wound Center Nurse 1 [Ulcer Assessment] 20-right posterior heel -Photo Taken No -Epithelialization None Present -Tunneling No -Undermining/Tunneling No -Circular Undermining No -Classification - Thickness Full Thickness without Exposed Support Structure -Exudate Amt Medium -Exudate Type Serosanguineous -Wound Margin Thickened -Granulation Amt Large (67-100%) -Granulation Quality [place] -Slough/Fibrin Yes -Necrosis Amt Small (1-33%) -Necrotic Tissue Type Adherent Slough -Structure Exposed None/Limited to Skin Breakdown -Texture (Susy-wound Skin Appearance) Assessed Callus -Moisture (Susy-wound Skin Appearance Assessed ) -Color (Susy-wound Skin Appearance) Assessed -Temperature (Susy-wound Skin No Abnormality Appearance) (Pt Warm) -Tenderness on Palpation (Susy-wound Yes Skin Appearance) -Ulcer Cleansing SOAP AND WATER -Anesthetic Used 4% Lidocaine Solution #4 Left central TMA -Current Size (cm) - Length 0.1 -Current Size (cm) - Width 0.1 -Current Size (cm) - Depth 0.1 -Total Square Cm 0.01 -Tunneling No -Undermining/Tunneling No -Classification - Thickness Unclassifiable (Eschar Covered ) -Change in Wound Grade/Stage No Query Text:If change please identify the Stage/Grade in the comment (ie. S2 G3) -Exudate Amt None Present -Exudate Type Serosanguineous -Wound Margin Thickened -Granulation Amt None Present (0 %) -Granulation Quality [place] -Slough/Fibrin No -Necrosis Amt None Present (0 %) -Structure Exposed None/Limited to Skin Breakdown -Texture (Susy-wound Skin Appearance) Assessed -Moisture (Susy-wound Skin Appearance Assessed ) -Color (Susy-wound Skin Appearance) Assessed -Temperature (Susy-wound Skin No Abnormality Appearance) (Pt Warm) -Tenderness on Palpation (Susy-wound No Skin Appearance) -Ulcer Cleansing Rinsed/ Irrigated with Saline -Foul Odor after Cleansing No -Anesthetic Used 4% Lidocaine Solution #1 right medial heel -Current Size (cm) - Length 1.0 -Current Size (cm) - Width 1.1 -Current Size (cm) - Depth 0.2 -Total Square Cm 1.10 -Photo Taken No -Tunneling No -Undermining/Tunneling No -Exudate Amt Medium -Exudate Type Serosanguineous -Wound Margin Thickened -Granulation Amt Large (67-100%) -Granulation Quality [place] -Slough/Fibrin Yes -Necrosis Amt Small (1-33%) -Necrotic Tissue Type Adherent Slough -Texture (Susy-wound Skin Appearance) Assessed Callus -Moisture (Susy-wound Skin Appearance Assessed ) -Color (Susy-wound Skin Appearance) Assessed -Temperature (Susy-wound Skin No Abnormality Appearance) (Pt Warm) -Tenderness on Palpation (Susy-wound No Skin Appearance) -Ulcer Cleansing SOAP AND WATER -Foul Odor after Cleansing No -Anesthetic Used 4% Lidocaine Solution [Edema Assessment] -Right Calf (cm) 54.7 -Right Ankle (cm) 29.6 -Left Calf (cm) 55.4 -Left Ankle (cm) 31 WC - Nurse 2 - General Ulcer CM Notes Start: 04/21/18 10:30 Freq: Status: Active Protocol: Activity Type Activity Date Activity User E-Sign Co-Sign Detail Recorded Client Recorded Date Recorded By Document 05/12/18 11:49 [id number] 05/12/18 11:54 05/12/18 11:49 Wound Center Nurse 2 [Procedure/Treatment] 20-right posterior heel -Time 11:49 -Correct Patient Yes -Correct Side, Site, Position Yes -Correct Procedure Yes -Procedure Performed Yes -Type of Procedure Debridement -Clinical Debridement Subcutaneous -Post Debridement Size (cm) - Length 0.6 -Post Debridement Size (cm) - Width 1.9 -Post Debridement Size (cm) - Depth 0.2 -Total Square Cm 1.14 -Wound/Ulcer Outcome Not Healed -Ulcer Cleansing Rinsed/ Irrigated with Saline -Foul Odor after Cleansing No -Bioengineered Tissue No -Bleeding Controlled with Pressure -Offloading Yes -Type of Offloading Surgical Shoe -Treatment Response Procedure Tolerated Well #4 Left central TMA -Time 11:54 -Correct Patient Yes -Correct Side, Site, Position Yes -Correct Procedure Yes -Procedure Performed Yes -Type of Procedure Debridement -Clinical Debridement Subcutaneous -Post Debridement Size (cm) - Length 1.0 -Post Debridement Size (cm) - Width 0.3 -Post Debridement Size (cm) - Depth 0.2 -Total Square Cm 0.30 -Wound/Ulcer Outcome Not Healed -Ulcer Cleansing Rinsed/ Irrigated with Saline -Foul Odor after Cleansing No -Bioengineered Tissue No -Bleeding Controlled with Pressure -Offloading Yes -Type of Offloading Surgical Shoe -Treatment Response Procedure Tolerated Well #1 right medial heel -Time 11:53 -Correct Patient Yes -Correct Side, Site, Position Yes -Correct Procedure Yes -Procedure Performed Yes -Type of Procedure Debridement -Clinical Debridement Subcutaneous -Post Debridement Size (cm) - Length 1.1 -Post Debridement Size (cm) - Width 1.1 -Post Debridement Size (cm) - Depth 0.2 -Total Square Cm 1.21 -Wound/Ulcer Outcome Not Healed -Ulcer Cleansing Rinsed/ Irrigated with Saline -Foul Odor after Cleansing No -Bioengineered Tissue No -Bleeding Controlled with Pressure -Offloading Yes -Type of Offloading Surgical Shoe -Treatment Response Procedure Tolerated Well [See Physician Procedure note for Specifics] Pain Scale: 0-10 Numeric [Pain] -Is Patient Pain Free? Yes Musculoskeletal: No Tenderness to Palpation of Joints or Extremities, Muscle Wasting, - - Compartments soft bilateral lower extremities. Transmetatarsal amputation left foot. Active range of motion digits right foot. Hallux irritation right foot. Neurological: Neuro grossly intact, Sensory exam intact to light touch and pain Psych/Mental Status: Normal Affect, Appropriate Debridement Note Post-Debridement Measurements/Treatment WC - Nurse 2 - General Ulcer CM Notes Start: 04/21/18 10:30 Freq: Status: Active Protocol: Activity Type Activity Date Activity User E-Sign Co-Sign Detail Recorded Client Recorded Date Recorded By Document 04/21/18 11:12 [id number] 04/21/18 11:14 Document 04/28/18 11:29 [id number] 04/28/18 11:33 Document 05/12/18 11:49 [id number] 05/12/18 11:54 04/21/18 04/28/18 05/12/18 11:12 11:29 11:49 Wound Center Nurse 2 20-right posterior heel -Time 11:12 11:29 11:49 -Correct Patient Yes Yes Yes -Correct Side, Site, Position Yes Yes Yes -Correct Procedure Yes Yes Yes -Procedure Performed Yes Yes Yes -Type of Procedure Debridement Debridement Debridement -Clinical Debridement Subcutaneous Subcutaneous Subcutaneous -Post Debridement Size (cm) - Length 0.6 0.7 0.6 -Post Debridement Size (cm) - Width 1.4 1.8 1.9 -Post Debridement Size (cm) - Depth 0.2 0.1 0.2 -Total Square Cm 0.84 1.26 1.14 -Wound/Ulcer Outcome Not Healed Not Healed Not Healed -Ulcer Cleansing Rinsed/ Rinsed/ Rinsed/ Irrigated with Irrigated with Irrigated with Saline Saline Saline -Foul Odor after Cleansing No No No -Bioengineered Tissue No No No -Bleeding Controlled with Pressure Pressure Pressure -Offloading Yes Yes Yes -Type of Offloading Surgical Shoe Surgical Shoe Surgical Shoe -Treatment Response Procedure Procedure Procedure Tolerated Well Tolerated Well Tolerated Well #15-LEFT LATERAL FOOT -Time 11:12 -Correct Patient Yes No -Correct Side, Site, Position Yes No -Correct Procedure Yes No -Procedure Performed Yes No -Type of Procedure Debridement -Clinical Debridement Subcutaneous -Post Debridement Size (cm) - Length 0.2 0 -Post Debridement Size (cm) - Width 0.1 0 -Post Debridement Size (cm) - Depth 0.1 0 -Total Square Cm 0.02 0 -Wound/Ulcer Outcome Not Healed Healed- Epithelialized -Ulcer Cleansing Rinsed/ Irrigated with Saline -Foul Odor after Cleansing No -Bioengineered Tissue No -Bleeding Controlled with Pressure -Offloading Yes -Type of Offloading Surgical Shoe -Treatment Response Procedure Tolerated Well #4 Left central TMA -Time 11:13 11:30 11:54 -Correct Patient Yes Yes Yes -Correct Side, Site, Position Yes Yes Yes -Correct Procedure Yes Yes Yes -Procedure Performed Yes Yes Yes -Type of Procedure Debridement Debridement Debridement -Clinical Debridement Subcutaneous Subcutaneous Subcutaneous -Post Debridement Size (cm) - Length 0.6 0.5 1.0 -Post Debridement Size (cm) - Width 0.3 0.2 0.3 -Post Debridement Size (cm) - Depth 0.3 0.1 0.2 -Total Square Cm 0.18 0.10 0.30 -Wound/Ulcer Outcome Not Healed Not Healed Not Healed -Ulcer Cleansing Rinsed/ Rinsed/ Rinsed/ Irrigated with Irrigated with Irrigated with Saline Saline Saline -Foul Odor after Cleansing No No No -Bioengineered Tissue No No No -Bleeding Controlled with Pressure Pressure Pressure -Offloading Yes Yes Yes -Type of Offloading Surgical Shoe Surgical Shoe Surgical Shoe -Treatment Response Procedure Procedure Procedure Tolerated Well Tolerated Well Tolerated Well #1 right medial heel -Time 11: 11:30 11:53 -Correct Patient Yes Yes Yes -Correct Side, Site, Position Yes Yes Yes -Correct Procedure Yes Yes Yes -Procedure Performed Yes Yes Yes -Type of Procedure Debridement Debridement Debridement -Clinical Debridement Subcutaneous Subcutaneous Subcutaneous -Post Debridement Size (cm) - Length 1 1.2 1.1 -Post Debridement Size (cm) - Width 1.9 1.5 1.1 -Post Debridement Size (cm) - Depth 0.3 0.2 0.2 -Total Square Cm 1.9 1.80 1.21 -Wound/Ulcer Outcome Not Healed Not Healed Not Healed -Ulcer Cleansing Rinsed/ Rinsed/ Rinsed/ Irrigated with Irrigated with Irrigated with Saline Saline Saline -Foul Odor after Cleansing No No No -Bioengineered Tissue No No No -Bleeding Controlled with Pressure Pressure Pressure -Offloading Yes Yes Yes -Type of Offloading Surgical Shoe Surgical Shoe Surgical Shoe -Treatment Response Procedure Procedure Procedure Tolerated Well Tolerated Well Tolerated Well Pain Scale: 0-10 Numeric Is Patient Pain Free? Yes Yes Yes Wound debrided: heel Laterality: Right Wound Grade/Stage: grade 3 Type of Debridement: Excisional debridement Anesthesia Used: 5% Lidocaine Gel Depth: in the subcutaneous layer Percentage of wound debrided: 100 Instrument Used: #15 blade Tissue Removed: fibrous, devitalized subcutaneous, biofilm, slough Severity: Fat Layer Exposed Amount of bleeding with debridement: Mild Bleeding Controlled with: Pressure Patient tolerated procedure well - Additional Wound Wound debrided: heel posterior Laterality: Right Wound Grade/Stage: grade 1 Type of Debridement: Excisional debridement Anesthesia Used: 5% Lidocaine Gel Depth: in the subcutaneous layer Percentage of wound debrided: 100 Instrument Used: #15 blade Tissue Removed: fibrous, devitalized subcutaneous, biofilm, slough Severity: Fat Layer Exposed Amount of bleeding with debridement: Mild Bleeding Controlled with: Pressure Patient tolerated procedure: Patient tolerated procedure well - Additional Wound Wound debrided: distal amputation site Laterality: Left Wound Grade/Stage: grade 1 Type of Debridement: Excisional debridement Anesthesia Used: 5% Lidocaine Gel Depth: in the subcutaneous layer Percentage of wound debrided: 100 Instrument Used: #15 blade Tissue Removed: fibrous, devitalized subcutaneous, biofilm, slough Severity: Fat Layer Exposed Amount of bleeding with debridement: Mild Bleeding Controlled with: Pressure Patient tolerated procedure: Patient tolerated procedure well Assessment/Plan Active Problems Venous insufficiency (Chronic) Peripheral vascular disease (Chronic) Ulcer of right foot with fat layer exposed (Chronic) Chronic ulcer of left foot with fat layer exposed (Chronic) Lower extremity edema (Chronic) Type 2 diabetes mellitus with diabetic polyneuropathy (Chronic) Malnutrition (Chronic) Assessment: Right heel ulcer with delayed healing. Plantar posterior heel ulcer. Left foot ulcer. Diabetes with neuropathy. lymphedema and continued leg swelling. peripheral vacular disease. venous insufficiency Plan: I discussed his case and treatment plan. He was reassured no new wounds or blisters were visualized on the right leg today. Subcutaneous excisional debridement to right heel (old and new sites) and central left amputation stump foot site performed today as noted in the clinical panel. He was reassured there are no local signs of infection noted today. It is noted he completed a full course of advanced wound care product, epifix,application. To apply Regranex to all ulcer sites daily; he is on his last tube at this time. To apply an aperture pad to offload the left central stump ulcer site. To maintain improved skin integrity by applying lac hydrin lotion to both legs daily. Continue circaid wraps bilateral legs daily; it is okay to apply tubigrip prior to application of CircAid foot wrap to better keep his wound dressings in place. To continue compression pump device daily; he is doing well with this. To proceed as previously advised with his lymphedema follow-up as advised. He is [facility] from the [facility] at this time. [place] compression garments to promote improved continued edema management at a more proximal level was approved for right lower extremity use; to use as advised. It is noted he was not approved for the left lower extremity because he did not meet qualifying criteria of open left leg current ulcer site. To resume Lasix use as soon as possible; his increased leg edema is noted bilateral. To continue diuretic medications per primary care physician.To elevate legs at rest. Compliance is imperative and this was discussed again today. To continue with portion control for weight loss and proper glycemic control and nutritional supplementation to optimize healing. His hemoglobin A1c went from 9.0 to 7.4. To continue strict offloading to all these ulcer sites. He has a donut offloading pillow and he was advised to use this. To follow-up with Dr. Peng as advised for the recommended bilateral intervention, venous. His recent vascular intervention in the left lower extremity is noted. All of his questions were answered. He understands he is still at risk for limb loss. . To follow-up at the wound care center in 1 week or call sooner if he has any questions or concerns.
== END 2018-05-13 23:59 ==
LOC: WC 10:45
PROVIDERS: Family Provider Family Medicine; PCP Family Medicine; Referring Provider Podiatrist; Visit Provider Podiatrist
DX: E11.621 Type 2 diabetes mellitus with foot ulcer (principal); E11.42 Type 2 diabetes mellitus with diabetic polyneuropathy; E11.51 Type 2 diabetes mellitus with diabetic peripheral angiopathy without gangrene; L97.412 Non-pressure chronic ulcer of right heel and midfoot with fat layer exposed; L97.522 Non-pressure chronic ulcer of other part of left foot with fat layer exposed; I89.0 Lymphedema, not elsewhere classified; R60.0 Localized edema; M86.671 Other chronic osteomyelitis, right ankle and foot
CPT/HCPCS: 11042

== ENCOUNTER 2018-06-09 11:00 | Outpatient (RCR) | payer MEDICARE, MEDICAID, SELFPAY ==
[2018-05-14 00:49] VITALS: BP 143/73; PULSE 60; RESP 18; TEMP 37.3
[2018-05-19 10:46] VITALS: BP 185/85; PULSE 52; RESP 20; TEMP 36.5; BMI 53.1
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
[2018-05-26 10:52] VITALS: BP 160/72; PULSE 55; RESP 18; TEMP 36.3; BMI 53.1
--- NOTE | 2018-05-26 11:32 | PN.PCM_ITS ---
(1) Non-pressure chronic ulcer of other part of left foot with fat layer exposed Status: Chronic Code(s): L97.522 - Non-pressure chronic ulcer of other part of left foot with fat layer exposed (2) Ulcer of right lower extremity with fat layer exposed Status: Acute Code(s): L97.912 - Non-pressure chronic ulcer of unspecified part of right lower leg with fat layer exposed (3) Ulcer of right foot with fat layer exposed Status: Chronic Code(s): L97.512 - Non-pressure chronic ulcer of other part of right foot with fat layer exposed (4) Burn of leg Status: Acute Qualifiers: Encounter type: subsequent encounter Laterality: right Code(s): T24.009A - Burn of unspecified degree of unspecified site of unspecified lower limb, except ankle and foot, initial encounter (5) Lymphedema Status: Chronic Code(s): I89.0 - Lymphedema, not elsewhere classified (6) Venous insufficiency Status: Chronic Code(s): I87.2 - Venous insufficiency (chronic) (peripheral) (7) Type 2 diabetes mellitus with diabetic polyneuropathy Status: Chronic Code(s): E11.42 - Type 2 diabetes mellitus with diabetic polyneuropathy (8) Malnutrition Status: Chronic Code(s): E46 - Unspecified protein-calorie malnutrition Type of Wound Date of Service: 05/26/18 Chief Complaint: right leg ulcer. right medial heel ulcer. 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 left foot ulcer. lymphedema and continued leg swelling History of Wound: 62 year old male was seen for right heel ulcer with chronic osteomyelitis, right plantar heel ulcer, and left foot ulcers . He denies fever, chill, nausea, vomiting. He has Regranex at home and home health has been helping when he has help available with the dressing changes. He uses the compression pumps 2-3 times a day with significant edema reduction. He completed his vascular surgery angioplasty with Dr. Peng for the left lower extremity. He has received treatment at the lymphedema clinic as well. He denies redness or odor. He denies redness odor or other illness. He uses CircAid compression wraps. He has followed with Dr. Peng as advised and now has bilateral venous procedures planned in the near future. Progress of Wound: Right leg ulcer secondary to burn. improving right heel ulcers and left foot ulcer stable - Physical Exam Vital Signs Temp Pulse Resp BP 97.3 F L 55 L 18 160/72 H 05/26/18 10:52 05/26/18 10:52 05/26/18 10:52 05/26/18 10:52 General: Alert, Oriented x3, Cooperative Extremities: No cyanosis, Capillary Refill Less than 3 Seconds, No Calf Tenderness - Negative Keara and Simmons sign bilateral, Diminished Peripheral Pulses, Edema, - - Left transmetatarsal amputation Skin: Ulcer/ Wound - No purulence, erythema, streaking, odor, or infection bilateral. Peripheral skin is hairless and atrophic Wound Measurements and Assessment WC - Nurse 1 - General Ulcer Measurement Start: 05/19/18 10:46 Freq: Status: Active Protocol: Activity Type Activity Date Activity User E-Sign Co-Sign Detail Recorded Client Recorded Date Recorded By Document 05/26/18 10:52 RB [id number] 05/26/18 11:01 RB 05/26/18 10:52 Wound Center Nurse 1 [Ulcer Assessment] #21 R medial Plantar -Current Size (cm) - Length 1 -Current Size (cm) - Width 1.3 -Current Size (cm) - Depth 0.1 -Total Square Cm 1.3 -Tunneling No -Undermining/Tunneling No -Circular Undermining No -Exudate Amt Small -Exudate Type Serosanguineous -Wound Margin Distinct, Outline Attached -Granulation Amt Medium (34-66%) -Granulation Quality [place] -Slough/Fibrin Yes -Necrosis Amt Medium (34-66%) -Necrotic Tissue Type Adherent Slough -Structure Exposed N/A -Texture (Susy-wound Skin Appearance) Callus -Moisture (Susy-wound Skin Appearance Assessed ) -Color (Susy-wound Skin Appearance) Assessed -Temperature (Susy-wound Skin No Abnormality Appearance) (Pt Warm) -Tenderness on Palpation (Susy-wound No Skin Appearance) -Ulcer Cleansing Wound Cleanser -Foul Odor after Cleansing No -Anesthetic Used 5% Lidocaine Gel 20-right posterior heel -Combined with other wound No -Current Size (cm) - Length 0.9 -Current Size (cm) - Width 1.4 -Current Size (cm) - Depth 0.2 -Total Square Cm 1.26 -Tunneling No -Undermining/Tunneling No -Circular Undermining No -Exudate Amt Small -Exudate Type Serosanguineous -Wound Margin Distinct, Outline Attached -Granulation Amt Medium (34-66%) -Granulation Quality [place] -Slough/Fibrin Yes -Necrosis Amt Medium (34-66%) -Necrotic Tissue Type Adherent Slough -Structure Exposed N/A -Texture (Susy-wound Skin Appearance) Assessed -Moisture (Susy-wound Skin Appearance Dry/Scaly ) -Color (Susy-wound Skin Appearance) Assessed -Temperature (Susy-wound Skin No Abnormality Appearance) (Pt Warm) -Tenderness on Palpation (Susy-wound No Skin Appearance) -Ulcer Cleansing Wound Cleanser -Foul Odor after Cleansing No -Anesthetic Used 5% Lidocaine Gel #4 Left central TMA -Combined with other wound No -Current Size (cm) - Length 1 -Current Size (cm) - Width 0.5 -Current Size (cm) - Depth 0.3 -Total Square Cm 0.5 -Tunneling No -Undermining/Tunneling No -Circular Undermining No -Exudate Amt Small -Exudate Type Serosanguineous -Wound Margin Distinct, Outline Attached -Granulation Amt Medium (34-66%) -Granulation Quality [place] -Slough/Fibrin Yes -Necrosis Amt Medium (34-66%) -Necrotic Tissue Type Adherent Slough -Structure Exposed N/A -Texture (Susy-wound Skin Appearance) Assessed -Moisture (Susy-wound Skin Appearance Assessed ) -Color (Susy-wound Skin Appearance) Assessed -Temperature (Susy-wound Skin No Abnormality Appearance) (Pt Warm) -Tenderness on Palpation (Susy-wound No Skin Appearance) -Ulcer Cleansing Wound Cleanser -Foul Odor after Cleansing No -Anesthetic Used 5% Lidocaine Gel #1 right medial heel -Combined with other wound No -Current Size (cm) - Length 0.9 -Current Size (cm) - Width 1 -Current Size (cm) - Depth 0.1 -Total Square Cm 0.9 -Tunneling No -Undermining/Tunneling No -Circular Undermining No -Exudate Amt Small -Exudate Type Serosanguineous -Granulation Amt Medium (34-66%) -Granulation Quality [place] -Slough/Fibrin Yes -Necrosis Amt Medium (34-66%) -Necrotic Tissue Type Adherent Slough -Structure Exposed N/A -Texture (Susy-wound Skin Appearance) Assessed -Moisture (Susy-wound Skin Appearance Dry/Scaly ) -Color (Susy-wound Skin Appearance) Assessed -Temperature (Susy-wound Skin No Abnormality Appearance) (Pt Warm) -Tenderness on Palpation (Susy-wound No Skin Appearance) -Ulcer Cleansing Wound Cleanser -Foul Odor after Cleansing No -Anesthetic Used 5% Lidocaine Gel [Edema Assessment] -Lower Limb Edema Present Yes -Right Calf (cm) 52.5 -Right Ankle (cm) 27.9 -Left Calf (cm) 51 -Left Ankle (cm) 29.5 WC - Nurse 2 - General Ulcer CM Notes Start: 05/19/18 10:46 Freq: Status: Active Protocol: Activity Type Activity Date Activity User E-Sign Co-Sign Detail Recorded Client Recorded Date Recorded By Document 05/26/18 11:10 RB [id number] 05/26/18 11:20 RB 05/26/18 11:10 Wound Center Nurse 2 [Procedure/Treatment] #21 R medial Plantar -Time 11:18 -Correct Patient Yes -Correct Side, Site, Position Yes -Correct Procedure Yes -Procedure Performed Yes -Type of Procedure Debridement -Clinical Debridement Subcutaneous -Post Debridement Size (cm) - Length 1 -Post Debridement Size (cm) - Width 1.3 -Post Debridement Size (cm) - Depth 0.1 -Total Square Cm 1.3 -Wound/Ulcer Outcome Not Healed -Ulcer Cleansing Rinsed/ Irrigated with Saline -Foul Odor after Cleansing No -Bioengineered Tissue No -Bleeding Controlled with Pressure -Offloading Yes -Type of Offloading Surgical Shoe -Treatment Response Procedure Tolerated Well 20-right posterior heel -Time 11:19 -Correct Patient Yes -Correct Side, Site, Position Yes -Correct Procedure Yes -Procedure Performed Yes -Type of Procedure Debridement -Clinical Debridement Subcutaneous -Post Debridement Size (cm) - Length 1 -Post Debridement Size (cm) - Width 1.5 -Post Debridement Size (cm) - Depth 0.2 -Total Square Cm 1.5 -Wound/Ulcer Outcome Not Healed -Ulcer Cleansing Rinsed/ Irrigated with Saline -Foul Odor after Cleansing No -Bioengineered Tissue No -Bleeding Controlled with Pressure -Offloading Yes -Type of Offloading Surgical Shoe -Treatment Response Procedure Tolerated Well #4 Left central TMA -Time 11:19 -Correct Patient Yes -Correct Side, Site, Position Yes -Correct Procedure Yes -Procedure Performed Yes -Type of Procedure Debridement -Clinical Debridement Subcutaneous -Post Debridement Size (cm) - Length 1.1 -Post Debridement Size (cm) - Width 0.6 -Post Debridement Size (cm) - Depth 0.3 -Total Square Cm 0.66 -Wound/Ulcer Outcome Not Healed -Ulcer Cleansing Rinsed/ Irrigated with Saline -Foul Odor after Cleansing No -Bioengineered Tissue No -Bleeding Controlled with Pressure -Offloading Yes -Type of Offloading Surgical Shoe -Treatment Response Procedure Tolerated Well #1 right medial heel -Time 11:20 -Correct Patient Yes -Correct Side, Site, Position Yes -Correct Procedure Yes -Procedure Performed Yes -Type of Procedure Debridement -Clinical Debridement Subcutaneous -Post Debridement Size (cm) - Length 0.9 -Post Debridement Size (cm) - Width 1.1 -Post Debridement Size (cm) - Depth 1 -Total Square Cm 0.99 -Wound/Ulcer Outcome Not Healed -Ulcer Cleansing Rinsed/ Irrigated with Saline -Foul Odor after Cleansing No -Bioengineered Tissue No -Bleeding Controlled with Pressure -Type of Offloading Surgical Shoe -Treatment Response Procedure Tolerated Well [See Physician Procedure note for Specifics] Musculoskeletal: No Tenderness to Palpation of Joints or Extremities, Muscle Wasting Neurological: - - Lack of epicritic sensation light touch consistent with neuropathy Psych/Mental Status: Normal Affect, Appropriate Debridement Note Post-Debridement Measurements/Treatment WC - Nurse 2 - General Ulcer CM Notes Start: 05/19/18 10:46 Freq: Status: Active Protocol: Activity Type Activity Date Activity User E-Sign Co-Sign Detail Recorded Client Recorded Date Recorded By Document 05/19/18 11:23 [id number] 05/19/18 11:30 Document 05/26/18 11:10 RB [id number] 05/26/18 11:20 RB 05/19/18 05/26/18 11:23 11:10 Wound Center Nurse 2 #21 R medial Plantar -Time 11:26 11:18 -Correct Patient Yes Yes -Correct Side, Site, Position Yes Yes -Correct Procedure Yes Yes -Procedure Performed Yes Yes -Type of Procedure Debridement Debridement -Clinical Debridement Subcutaneous Subcutaneous -Post Debridement Size (cm) - Length 0.3 1 -Post Debridement Size (cm) - Width 1.8 1.3 -Post Debridement Size (cm) - Depth 0.2 0.1 -Total Square Cm 0.54 1.3 -Wound/Ulcer Outcome Not Healed Not Healed -Ulcer Cleansing Rinsed/ Rinsed/ Irrigated with Irrigated with Saline Saline -Foul Odor after Cleansing No No -Bioengineered Tissue No No -Bleeding Controlled with Pressure Pressure -Offloading Yes Yes -Type of Offloading Cam[place] Surgical Shoe -Treatment Response Procedure Procedure Tolerated Well Tolerated Well 20-right posterior heel -Time 11:26 11:19 -Correct Patient Yes Yes -Correct Side, Site, Position Yes Yes -Correct Procedure Yes Yes -Procedure Performed Yes Yes -Type of Procedure Debridement Debridement -Clinical Debridement Subcutaneous Subcutaneous -Post Debridement Size (cm) - Length 0.6 1 -Post Debridement Size (cm) - Width 1.8 1.5 -Post Debridement Size (cm) - Depth 0.2 0.2 -Total Square Cm 1.08 1.5 -Wound/Ulcer Outcome Not Healed Not Healed -Ulcer Cleansing Rinsed/ Rinsed/ Irrigated with Irrigated with Saline Saline -Foul Odor after Cleansing No No -Bioengineered Tissue No No -Bleeding Controlled with Pressure Pressure -Offloading Yes Yes -Type of Offloading [place] Surgical Shoe -Treatment Response Procedure Procedure Tolerated Well Tolerated Well #4 Left central TMA -Time 11:19 -Correct Patient No Yes -Correct Side, Site, Position No Yes -Correct Procedure No Yes -Procedure Performed No Yes -Type of Procedure Debridement -Clinical Debridement Subcutaneous -Post Debridement Size (cm) - Length 1.1 -Post Debridement Size (cm) - Width 0.6 -Post Debridement Size (cm) - Depth 0.3 -Total Square Cm 0.66 -Wound/Ulcer Outcome Not Healed -Ulcer Cleansing Rinsed/ Irrigated with Saline -Foul Odor after Cleansing No -Bioengineered Tissue No -Bleeding Controlled with Pressure -Offloading Yes -Type of Offloading Surgical Shoe -Treatment Response Procedure Tolerated Well #1 right medial heel -Time 11:24 11:20 -Correct Patient Yes Yes -Correct Side, Site, Position Yes Yes -Correct Procedure Yes Yes -Procedure Performed Yes Yes -Type of Procedure Debridement Debridement -Clinical Debridement Subcutaneous Subcutaneous -Post Debridement Size (cm) - Length 1 0.9 -Post Debridement Size (cm) - Width 1.5 1.1 -Post Debridement Size (cm) - Depth 0.2 1 -Total Square Cm 1.5 0.99 -Wound/Ulcer Outcome Not Healed Not Healed -Ulcer Cleansing Rinsed/ Rinsed/ Irrigated with Irrigated with Saline Saline -Foul Odor after Cleansing No No -Bioengineered Tissue No No -Bleeding Controlled with Pressure Pressure -Offloading Yes -Type of Offloading [place] Surgical Shoe -Treatment Response Procedure Procedure Tolerated Well Tolerated Well Pain Scale: 0-10 Numeric Is Patient Pain Free? Yes Wound debrided: foot distal amputation site Laterality: Left Wound Grade/Stage: grade 1 Type of Debridement: Excisional debridement Anesthesia Used: 5% Lidocaine Gel Depth: in the subcutaneous layer Percentage of wound debrided: 100 Instrument Used: #15 blade Tissue Removed: fibrous, devitalized subcutaneous, biofilm, slough Severity: Fat Layer Exposed Amount of bleeding with debridement: Mild Bleeding Controlled with: Pressure Patient tolerated procedure well - Additional Wound Wound debrided: plantar sub 1 metatarsal head Laterality: Right Wound Grade/Stage: grade 1 Type of Debridement: Excisional debridement Anesthesia Used: 5% Lidocaine Gel Depth: in the subcutaneous layer Percentage of wound debrided: 100 Instrument Used: #15 blade Tissue Removed: fibrous, devitalized subcutaneous, biofilm, slough Severity: Fat Layer Exposed Amount of bleeding with debridement: Mild Bleeding Controlled with: Pressure Patient tolerated procedure: Patient tolerated procedure well - Additional Wound Wound debrided: heel posterior Laterality: Right Wound Grade/Stage: grade 3 Type of Debridement: Excisional debridement Anesthesia Used: 5% Lidocaine Gel Depth: in the subcutaneous layer Percentage of wound debrided: 100 Instrument Used: #15 blade Tissue Removed: fibrous, devitalized subcutaneous, biofilm, slough Severity: Fat Layer Exposed Amount of bleeding with debridement: Mild Bleeding Controlled with: Pressure Patient tolerated procedure: Patient tolerated procedure well - Additional Wound Wound debrided: heel plantar (more distal oriented, newer) Laterality: Right Wound Grade/Stage: grade 1 Type of Debridement: Excisional debridement Anesthesia Used: 5% Lidocaine Gel Depth: in the subcutaneous layer Percentage of wound debrided: 100 Instrument Used: #15 blade Tissue Removed: fibrous, devitalized subcutaneous, biofilm, slough Severity: Fat Layer Exposed Amount of bleeding with debridement: Mild Bleeding Controlled with: Pressure Patient tolerated procedure: Patient tolerated procedure well Assessment/Plan Assessment: right leg ulcer secondary to burn. Right heel ulcer with delayed healing. Plantar posterior heel ulcer. Left foot ulcer. Diabetes with neuropathy. lymphedema and continued leg swelling. peripheral vacular disease. venous insufficiency Plan: I discussed his case and treatment plan. He was reassured no new wounds or blisters were visualized on the right leg today. Subcutaneous excisional debridement to right heel (old and new sites) and central left amputation stump foot site performed today as noted in the clinical panel. He was reassured there are no local signs of infection noted today. It is noted he completed a full course of advanced wound care product, epifix,application. To apply Regranex to all ulcer sites daily; he is on his last tube at this time. To apply an aperture pad to offload the left central stump ulcer site. To maintain improved skin integrity by applying lac hydrin lotion to both legs daily. He is reassured no infections noted. Continue circaid wraps bilateral legs daily; it is okay to apply tubigrip prior to application of CircAid foot wrap to better keep his wound dressings in place. To continue compression pump device daily; he is doing well with this. To proceed as previously advised with his lymphedema follow-up as advised. He is discharged from the [facility] at this time. [place] compression garments to promote improved continued edema management at a more proximal level was approved for right lower extremity use; to use as advised. It is noted he was not approved for the left lower extremity because he did not meet qualifying criteria of open left leg current ulcer site. To continue Lasix use as advised by primary care physician. To continue with portion control for weight loss and proper glycemic control and nutritional supplementation to optimize healing. His hemoglobin A1c went from 9.0 to 7.4. To continue strict offloading to all these ulcer sites. He has a donut offloading pillow and he was advised to use this. To follow-up with Dr. Peng as advised for the recommended bilateral intervention, venous. His recent vascular intervention in the left lower extremity is noted. All of his ques tions were answered. He understands he is still at risk for limb loss. . To follow-up at the wound care center in 1 week or call sooner if he has any questions or concerns.
[2018-06-02 10:18] VITALS: BP 154/68; PULSE 59; RESP 18; TEMP 36.9; BMI 53.1
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
[2018-06-09 11:09] VITALS: BP 153/76; PULSE 58; RESP 20; TEMP 36.8; BMI 53.1
--- NOTE | 2018-06-09 15:24 | PN.PCM_ITS ---
(1) Non-pressure chronic ulcer of other part of left foot with fat layer exposed Status: Chronic Code(s): L97.522 - Non-pressure chronic ulcer of other part of left foot with fat layer exposed (2) Ulcer of right lower extremity with fat layer exposed Status: Chronic Code(s): L97.912 - Non-pressure chronic ulcer of unspecified part of right lower leg with fat layer exposed (3) Ulcer of right foot with fat layer exposed Status: Chronic Code(s): L97.512 - Non-pressure chronic ulcer of other part of right foot with fat layer exposed (4) Lymphedema Status: Chronic Code(s): I89.0 - Lymphedema, not elsewhere classified (5) Venous insufficiency Status: Chronic Code(s): I87.2 - Venous insufficiency (chronic) (peripheral) (6) Type 2 diabetes mellitus with diabetic polyneuropathy Status: Chronic Code(s): E11.42 - Type 2 diabetes mellitus with diabetic polyneuropathy (7) Malnutrition Status: Chronic Code(s): E46 - Unspecified protein-calorie malnutrition Type of Wound Date of Service: 06/09/18 Chief Complaint: right leg ulcer. right medial heel ulcer. 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 left foot ulcer (previous and new lateral ulcer today). lymphedema and continued leg swelling History of Wound: 63 year old male was seen for right heel ulcer with chronic osteomyelitis, right plantar heel ulcer, and left foot ulcers. He denies fever, chill, nausea, vomiting. He has Regranex at home and home health has been helping when he has help available with the dressing changes. He uses the compression pumps 2-3 times a day with significant edema reduction. He completed his vascular surgery angioplasty with Dr. Peng for the left lower extremity. He has received treatment at the lymphedema clinic as well. He denies redness or odor. He denies redness odor or other illness. He uses CircAid compression wraps. He has followed with Dr. Peng as advised and now has bilateral venous procedures planned in the near future. He obtained a new surgical shoe and the right foot ulcer rubbing issue has resolved. Progress of Wound: Right leg ulcer secondary to burn-stable. improving right heel ulcers. left foot ulcer stable. 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 Compartments are soft to palpate bilateral lower extremities Skin: Ulcer/ Wound - No purulence, erythema, streaking, odor, or infection or deep tissue exposure eschar maceration bilateral. The peripheral skin is hairless and atrophic. Wound Measurements and Assessment WC - Nurse 1 - General Ulcer Measurement Start: 05/19/18 10:46 Freq: Status: Active Protocol: Activity Type Activity Date Activity User E-Sign Co-Sign Detail Recorded Client Recorded Date Recorded By Document 06/09/18 11:09 [id number] 06/09/18 11:26 AN 06/09/18 11:09 Wound Center Nurse 1 [Ulcer Assessment] #21 R medial Plantar -Current Size (cm) - Length 1.8 -Current Size (cm) - Width 1.4 -Current Size (cm) - Depth 0.2 -Total Square Cm 2.52 -Photo Taken No -Exudate Amt Small -Exudate Type Serosanguineous -Wound Margin Thickened -Granulation Amt Small (1-33%) -Granulation Quality [place] -Necrosis Amt Large (67-100%) -Necrotic Tissue Type Adherent Slough -Structure Exposed N/A -Texture (Susy-wound Skin Appearance) Callus Localized Edema Scarring -Moisture (Susy-wound Skin Appearance Maceration ) -Color (Susy-wound Skin Appearance) Hemosiderin Staining -Temperature (Susy-wound Skin No Abnormality Appearance) (Pt Warm) -Tenderness on Palpation (Susy-wound No Skin Appearance) -Ulcer Cleansing Wound Cleanser -Foul Odor after Cleansing No -Anesthetic Used 5% Lidocaine Gel 20-right posterior heel -Current Size (cm) - Length 1 -Current Size (cm) - Width 1.3 -Current Size (cm) - Depth 0.2 -Total Square Cm 1.3 -Photo Taken No -Exudate Amt Small -Exudate Type Serosanguineous -Wound Margin Thickened -Granulation Amt Large (67-100%) -Granulation Quality [place] -Necrosis Amt Small (1-33%) -Necrotic Tissue Type Adherent Slough -Structure Exposed N/A -Texture (Susy-wound Skin Appearance) Scarring -Moisture (Susy-wound Skin Appearance Dry/Scaly ) -Color (Susy-wound Skin Appearance) Hemosiderin Staining -Temperature (Susy-wound Skin No Abnormality Appearance) (Pt Warm) -Tenderness on Palpation (Susy-wound No Skin Appearance) -Ulcer Cleansing Wound Cleanser -Foul Odor after Cleansing No -Anesthetic Used 5% Lidocaine Gel #4 Left central TMA -Current Size (cm) - Length 0.1 -Current Size (cm) - Width 0.1 -Current Size (cm) - Depth 0.1 -Total Square Cm 0.01 -Photo Taken No -Exudate Amt None Present -Wound Margin Flat & Intact -Granulation Amt Large (67-100%) -Granulation Quality [place] -Necrosis Amt None Present (0 %) -Structure Exposed N/A -Texture (Susy-wound Skin Appearance) Scarring -Moisture (Susy-wound Skin Appearance Dry/Scaly ) -Color (Susy-wound Skin Appearance) Hemosiderin Staining -Temperature (Susy-wound Skin No Abnormality Appearance) (Pt Warm) -Tenderness on Palpation (Susy-wound No Skin Appearance) -Ulcer Cleansing Wound Cleanser -Foul Odor after Cleansing No -Anesthetic Used 5% Lidocaine Gel #1 right medial heel -Current Size (cm) - Length 0.8 -Current Size (cm) - Width 1.2 -Current Size (cm) - Depth 0.2 -Total Square Cm 0.96 -Photo Taken No -Exudate Amt Small -Exudate Type Serosanguineous -Wound Margin Distinct, Outline Attached -Granulation Amt Large (67-100%) -Granulation Quality [place] -Necrosis Amt Small (1-33%) -Necrotic Tissue Type Adherent Slough -Structure Exposed N/A -Texture (Susy-wound Skin Appearance) Scarring -Moisture (Susy-wound Skin Appearance Dry/Scaly ) -Color (Susy-wound Skin Appearance) Hemosiderin Staining -Temperature (Susy-wound Skin No Abnormality Appearance) (Pt Warm) -Tenderness on Palpation (Susy-wound No Skin Appearance) -Ulcer Cleansing Wound Cleanser -Foul Odor after Cleansing No -Anesthetic Used 5% Lidocaine Gel [Edema Assessment] -Right Calf (cm) 48 -Right Ankle (cm) 27.5 -Left Calf (cm) 48.5 -Left Ankle (cm) 28.8 WC - Nurse 2 - General Ulcer CM Notes Start: 05/19/18 10:46 Freq: Status: Active Protocol: Activity Type Activity Date Activity User E-Sign Co-Sign Detail Recorded Client Recorded Date Recorded By Document 06/09/18 11:49 [id number] 06/09/18 11:54 AN 06/09/18 11:49 Wound Center Nurse 2 [Procedure/Treatment] #21 R medial Plantar -Time 11:52 -Correct Patient Yes -Correct Side, Site, Position Yes -Correct Procedure Yes -Procedure Performed Yes -Type of Procedure Debridement -Clinical Debridement Subcutaneous -Post Debridement Size (cm) - Length 0.9 -Post Debridement Size (cm) - Width 1.3 -Post Debridement Size (cm) - Depth 0.2 -Total Square Cm 1.17 20-right posterior heel -Time 11:52 -Correct Patient Yes -Correct Side, Site, Position Yes -Correct Procedure Yes -Procedure Performed Yes -Type of Procedure Debridement -Clinical Debridement Subcutaneous -Post Debridement Size (cm) - Length 1.1 -Post Debridement Size (cm) - Width 1.4 -Post Debridement Size (cm) - Depth 0.2 -Total Square Cm 1.54 #4 Left central TMA -Time 11:52 -Correct Patient Yes -Correct Side, Site, Position Yes -Correct Procedure Yes -Procedure Performed Yes -Type of Procedure Debridement -Clinical Debridement Subcutaneous -Post Debridement Size (cm) - Length 0.2 -Post Debridement Size (cm) - Width 0.2 -Post Debridement Size (cm) - Depth 0.1 -Total Square Cm 0.04 #1 right medial heel -Time 11:53 -Correct Patient Yes -Correct Side, Site, Position Yes -Correct Procedure Yes -Procedure Performed Yes -Type of Procedure Debridement -Clinical Debridement Subcutaneous -Post Debridement Size (cm) - Length 0.9 -Post Debridement Size (cm) - Width 1.3 -Post Debridement Size (cm) - Depth 0.2 -Total Square Cm 1.17 [See Physician Procedure note for Specifics] Pain Scale: 0-10 Numeric [Pain] -Is Patient Pain Free? Yes Musculoskeletal: No Tenderness to Palpation of Joints or Extremities, Muscle Wasting Neurological: - - Lack of epicritic sensation light touch consistent with neuropathy bilateral lower extremities Psych/Mental Status: Normal Affect, Appropriate Debridement Note Post-Debridement Measurements/Treatment WC - Nurse 2 - General Ulcer CM Notes Start: 05/19/18 10:46 Freq: Status: Active Protocol: Activity Type Activity Date Activity User E-Sign Co-Sign Detail Recorded Client Recorded Date Recorded By Document 05/19/18 11:23 JF [id number] 05/19/18 11:30 JF Document 05/26/18 11:10 RB [id number] 05/26/18 11:20 RB Document 06/02/18 10:56 AN [id number] 06/02/18 11:05 AN Document 06/09/18 11:49 AN [id number] 06/09/18 11:54 AN 05/19/18 05/26/18 06/02/18 11:23 11:10 10:56 Wound Center Nurse 2 #21 R medial Plantar -Time 11:26 11:18 11:03 -Correct Patient Yes Yes Yes -Correct Side, Site, Position Yes Yes Yes -Correct Procedure Yes Yes Yes -Procedure Performed Yes Yes Yes -Type of Procedure Debridement Debridement Debridement -Clinical Debridement Subcutaneous Subcutaneous Subcutaneous -Post Debridement Size (cm) - Length 0.3 1 1.6 -Post Debridement Size (cm) - Width 1.8 1.3 1.3 -Post Debridement Size (cm) - Depth 0.2 0.1 0.1 -Total Square Cm 0.54 1.3 2.08 -Wound/Ulcer Outcome Not Healed Not Healed -Ulcer Cleansing Rinsed/ Rinsed/ Irrigated with Irrigated with Saline Saline -Foul Odor after Cleansing No No -Bioengineered Tissue No No -Bleeding Controlled with Pressure Pressure -Offloading Yes Yes -Type of Offloading Camwalker Surgical Shoe -Treatment Response Procedure Procedure Tolerated Well Tolerated Well 20-right posterior heel -Time 11:26 11:19 11:05 -Correct Patient Yes Yes Yes -Correct Side, Site, Position Yes Yes Yes -Correct Procedure Yes Yes Yes -Procedure Performed Yes Yes Yes -Type of Procedure Debridement Debridement Debridement -Clinical Debridement Subcutaneous Subcutaneous Subcutaneous -Post Debridement Size (cm) - Length 0.6 1 0.8 -Post Debridement Size (cm) - Width 1.8 1.5 0.9 -Post Debridement Size (cm) - Depth 0.2 0.2 0.2 -Total Square Cm 1.08 1.5 0.72 -Wound/Ulcer Outcome Not Healed Not Healed -Ulcer Cleansing Rinsed/ Rinsed/ Irrigated with Irrigated with Saline Saline -Foul Odor after Cleansing No No -Bioengineered Tissue No No -Bleeding Controlled with Pressure Pressure -Offloading Yes Yes -Type of Offloading Camwalker Surgical Shoe -Treatment Response Procedure Procedure Tolerated Well Tolerated Well #4 Left central TMA -Time 11:19 11:04 -Correct Patient No Yes Yes -Correct Side, Site, Position No Yes Yes -Correct Procedure No Yes Yes -Procedure Performed No Yes Yes -Type of Procedure Debridement Debridement -Clinical Debridement Subcutaneous Subcutaneous -Post Debridement Size (cm) - Length 1.1 0.1 -Post Debridement Size (cm) - Width 0.6 0.1 -Post Debridement Size (cm) - Depth 0.3 0.1 -Total Square Cm 0.66 0.01 -Wound/Ulcer Outcome Not Healed -Ulcer Cleansing Rinsed/ Irrigated with Saline -Foul Odor after Cleansing No -Bioengineered Tissue No -Bleeding Controlled with Pressure -Offloading Yes -Type of Offloading Surgical Shoe -Treatment Response Procedure Tolerated Well #1 right medial heel -Time 11:24 11:20 -Correct Patient Yes Yes -Correct Side, Site, Position Yes Yes -Correct Procedure Yes Yes -Procedure Performed Yes Yes -Type of Procedure Debridement Debridement -Clinical Debridement Subcutaneous Subcutaneous -Post Debridement Size (cm) - Length 1 0.9 -Post Debridement Size (cm) - Width 1.5 1.1 -Post Debridement Size (cm) - Depth 0.2 1 -Total Square Cm 1.5 0.99 -Wound/Ulcer Outcome Not Healed Not Healed -Ulcer Cleansing Rinsed/ Rinsed/ Irrigated with Irrigated with Saline Saline -Foul Odor after Cleansing No No -Bioengineered Tissue No No -Bleeding Controlled with Pressure Pressure -Offloading Yes -Type of Offloading Camwalker Surgical Shoe -Treatment Response Procedure Procedure Tolerated Well Tolerated Well Pain Scale: 0-10 Numeric Is Patient Pain Free? Yes Yes 06/09/18 11:49 Wound Center Nurse 2 #21 R medial Plantar -Time 11:52 -Correct Patient Yes -Correct Side, Site, Position Yes -Correct Procedure Yes -Procedure Performed Yes -Type of Procedure Debridement -Clinical Debridement Subcutaneous -Post Debridement Size (cm) - Length 0.9 -Post Debridement Size (cm) - Width 1.3 -Post Debridement Size (cm) - Depth 0.2 -Total Square Cm 1.17 -Wound/Ulcer Outcome -Ulcer Cleansing -Foul Odor after Cleansing -Bioengineered Tissue -Bleeding Controlled with -Offloading -Type of Offloading -Treatment Response 20-right posterior heel -Time 11:52 -Correct Patient Yes -Correct Side, Site, Position Yes -Correct Procedure Yes -Procedure Performed Yes -Type of Procedure Debridement -Clinical Debridement Subcutaneous -Post Debridement Size (cm) - Length 1.1 -Post Debridement Size (cm) - Width 1.4 -Post Debridement Size (cm) - Depth 0.2 -Total Square Cm 1.54 -Wound/Ulcer Outcome -Ulcer Cleansing -Foul Odor after Cleansing -Bioengineered Tissue -Bleeding Controlled with -Offloading -Type of Offloading -Treatment Response #4 Left central TMA -Time 11:52 -Correct Patient Yes -Correct Side, Site, Position Yes -Correct Procedure Yes -Procedure Performed Yes -Type of Procedure Debridement -Clinical Debridement Subcutaneous -Post Debridement Size (cm) - Length 0.2 -Post Debridement Size (cm) - Width 0.2 -Post Debridement Size (cm) - Depth 0.1 -Total Square Cm 0.04 -Wound/Ulcer Outcome -Ulcer Cleansing -Foul Odor after Cleansing -Bioengineered Tissue -Bleeding Controlled with -Offloading -Type of Offloading -Treatment Response #1 right medial heel -Time 11:53 -Correct Patient Yes -Correct Side, Site, Position Yes -Correct Procedure Yes -Procedure Performed Yes -Type of Procedure Debridement -Clinical Debridement Subcutaneous -Post Debridement Size (cm) - Length 0.9 -Post Debridement Size (cm) - Width 1.3 -Post Debridement Size (cm) - Depth 0.2 -Total Square Cm 1.17 -Wound/Ulcer Outcome -Ulcer Cleansing -Foul Odor after Cleansing -Bioengineered Tissue -Bleeding Controlled with -Offloading -Type of Offloading -Treatment Response Pain Scale: 0-10 Numeric Is Patient Pain Free? Yes Wound debrided: sub 1st metatarsal head Laterality: Right Wound Grade/Stage: grade 1 Type of Debridement: Excisional debridement Anesthesia Used: 5% Lidocaine Gel Depth: in the subcutaneous layer Percentage of wound debrided: 100 Instrument Used: #15 blade Tissue Removed: fibrous, devitalized subcutaneous, biofilm, slough Severity: Fat Layer Exposed Amount of bleeding with debridement: Mild Bleeding Controlled with: Pressure Patient tolerated procedure well - Additional Wound Wound debrided: heel posterior Laterality: Right Wound Grade/Stage: grade 3 Type of Debridement: Excisional debridement Anesthesia Used: 5% Lidocaine Gel Depth: in the subcutaneous layer Percentage of wound debrided: 100 Instrument Used: #15 blade Tissue Removed: fibrous, devitalized subcutaneous, biofilm, slough Severity: Fat Layer Exposed Amount of bleeding with debridement: Mild Bleeding Controlled with: Pressure Patient tolerated procedure: Patient tolerated procedure well - Additional Wound Wound debrided: heel (more distal site) Laterality: Right Wound Grade/Stage: grade 1 Type of Debridement: Excisional debridement Anesthesia Used: 5% Lidocaine Gel Depth: in the subcutaneous layer Percentage of wound debrided: 100 Instrument Used: #15 blade Tissue Removed: fibrous, devitalized subcutaneous, biofilm, slough Severity: Fat Layer Exposed Amount of bleeding with debridement: Mild Bleeding Controlled with: Pressure Patient tolerated procedure: Patient tolerated procedure well - Additional Wound Wound debrided: distal foot Laterality: Left Wound Grade/Stage: grade 1 Type of Debridement: Excisional debridement Anesthesia Used: 5% Lidocaine Gel Depth: in the subcutaneous layer Percentage of wound debrided: 100 Instrument Used: #15 blade Tissue Removed: fibrous, devitalized subcutaneous, biofilm, slough Severity: Fat Layer Exposed Amount of bleeding with debridement: Mild Bleeding Controlled with: Pressure Patient tolerated procedure: Patient tolerated procedure well Assessment/Plan Assessment: right leg ulcer secondary to burn. Right heel ulcer with delayed healing. Plantar posterior heel ulcer. Left foot ulcer central TMA site. Foot ulcer central lateral TMA site. Diabetes with neuropathy. lymphedema and continued leg swelling. peripheral vacular disease. venous insufficiency Plan: I discussed his case and treatment plan. Subcutaneous excisional debridement to all sites except the burn site which is out of my current scope of practice. Regardless, this is stable and looks good today. He was reassured there are no local signs of infection noted today. It is noted he completed a full course of advanced wound care product, epifix,application. To apply Regranex to all ulcer sites daily; he is on his last tube at this time. To maintain improved skin integrity by applying lac hydrin lotion to both legs daily. Continue circaid wraps bilateral legs daily; it is okay to apply tubi asphalt tile floor layer prior to application of CircAid foot wrap to better keep his wound dressings in place. To continue compression pump device daily; he is doing well with this. To proceed as previously advised with his lymphedema follow-up as advised. He is discharged from the [facility] at this time. [place] compression garments to promote improved continued edema management at a more proximal level was approved for right lower extremity use; to use as advised. It is noted he was not approved for the left lower extremity because he did not meet qualifying criteria of open left leg current ulcer site. To continue Lasix use as advised by primary care physician. To continue with portion control for weight loss and proper glycemic control and nutritional supplementation to optimize healing. His hemoglobin A1c went from 9.0 to 7.4. To continue strict offloading to all these ulcer sites. He has a donut offloading pillow and he was advised to use this. To follow-up with Dr. Peng as advised for the recommended bilateral intervention, venous. His recent vascular intervention in the left lower extremity is noted. All of his questions were answered. He understands he is still at risk for limb loss. . To follow-up at the wound care center in 1 week or call sooner if he has any questions or concerns.
== END 2018-06-13 23:59 ==
LOC: WC 11:00
PROVIDERS: Family Provider Family Medicine; PCP Family Medicine; Referring Provider Podiatrist; Visit Provider Podiatrist
DX: E11.621 Type 2 diabetes mellitus with foot ulcer (principal); E11.42 Type 2 diabetes mellitus with diabetic polyneuropathy; E11.51 Type 2 diabetes mellitus with diabetic peripheral angiopathy without gangrene; L97.412 Non-pressure chronic ulcer of right heel and midfoot with fat layer exposed; L97.522 Non-pressure chronic ulcer of other part of left foot with fat layer exposed; I89.0 Lymphedema, not elsewhere classified; T24.001A Burn of unspecified degree of unspecified site of right lower limb, except ankle and foot, initial encounter; X16.XXXA Contact with hot heating appliances, radiators and pipes, initial encounter; Y92.009 Unspecified place in unspecified non-institutional (private) residence as the place of occurrence of the external cause
CPT/HCPCS: 11042

== ENCOUNTER → 2018-06-21 | Outpatient (CLI) | payer MEDICARE, MEDICAID, SELFPAY ==
[2018-06-16 11:05] VITALS: BMI 53.1
--- NOTE | 2018-06-21 12:35 | RAD_ITS ---
STUDY: X-RAY - RIGHT FOOT CLINICAL: Male, 63 years old. Nonhealing ulcers TECHNIQUE: 4 view(s) of the foot. COMPARISON: 06/05/2017 FINDINGS: Normal talus and tarsal bones. Stable calcaneal spurs. 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 Normal visualized subtalar, talonavicular, calcaneocuboid, tarsal and tarsometatarsal articulations. Normal metatarsi. Normal metatarsophalangeal joint of the great toe. Normal tibial and fibular sesamoid bones. Normal interphalangeal joint of the great toe. Normal phalanges of the great toe. Normal second through fifth metatarsophalangeal joints. Normal interphalangeal joints and phalanges of the lesser toes. Diffuse nonspecific soft tissue swelling again noted. There is subcutaneous emphysema noted inferior to the calcaneus on the lateral view suggesting ulcer. RAD/Foot min 3 Views IMPRESSION: There is been previous amputation of the phalanges of the great toe. There is no demonstrated fracture or erosive osseous lesion noted. Subcutaneous emphysema volar to the calcaneus suggests an ulcer there is no associated erosive lesion noted in the calcaneus. Calcaneal spurs Electronically Signed: Jagjit Floyd MD at 10:21 EDT , Service support ,
[2018-06-21 13:24] LABS: Absolute Neutrophil Count 3.5 X10^3/uL (2.0-7.7); Basophil# 0.02 X10^3/uL; Basophil% 0.3 % (0-1); Eosinophil# 0.37 X10^3/uL; Eosinophils% 5.9 % (0-5); Hematocrit 40.5 % (40-54); Hemoglobin 12.7 g/dl (13.0-16.5); Lymphocyte % 25.7 % (19-41); Mean Corp Hgb Conc 31.4 g/gl (32-36); Mean Corpuscular Hgb 26.9 pg (27.0-32.0); Mean Corpuscular Volume 85.8 fL (80-94); Mean Platelet Vol. 10.4 fl (6.2-12.0); Monocyte# 0.71 X10^3/uL; Monocyte% 11.4 % (0-10); Neutrophil # 3.52 X10^3/uL (2.7-7.7); Neutrophil % 56.5 % (47-70); Platelet Count 158 K/mm3 (150-450); RBC Distribution Width CV 14.1 % (11.6-14.6); RBC Distribution Width SD 44.1 fl (35.1-43.9); Red Blood Count 4.72 M/mm3 (4.6-6.2); White Blood Count 6.2 K/mm3 (4.4-11.0)
[2018-06-21 13:37] LABS: Erythrocyte Sedimentation Rate 55 mm/hr (0-20)
[2018-06-21 13:39] LABS: POSITIVE COUNT NO; POSITIVE DIFFERENTIAL NO; POSITIVE MORPHOLOGY NO
[2018-06-21 13:43] LABS: ALB/GLOB Ratio 0.6 RATIO (0.9-2.4); AST(SGOT) 12 U/L (15-37); Alanine Aminotransfer ALT/SGPT 16 U/L (16-61); Alkaline Phosphatase 74 U/L (45-117); Anion Gap 4 (5-15); BUN 39 mg/dL (7-18); Chloride 109 mmol/L (98-107); EST Glomerular Filtration Rate 59 mL/min (>60); Est Glom Filt Rate - Afr Amer 72 mL/min (>60); Globulin 4.8 g/dL (2.2-4.2); Glucose 142 mg/dL (74-106); Potassium 5.1 mmol/L (3.5-5.1); Protein, Total 7.8 g/dL (6.4-8.2); Sodium Level 139 mmol/L (136-145)
== END | disposition home or self-care (01) ==
PROVIDERS: Family Provider Family Medicine; PCP Family Medicine; Referring Provider Podiatrist; Visit Provider Podiatrist
DX: L97.519 Non-pressure chronic ulcer of other part of right foot with unspecified severity (principal); L08.9 Local infection of the skin and subcutaneous tissue, unspecified
CPT/HCPCS: 36415; 73630; 80053; 85025; 85652; 86140

== ENCOUNTER 2018-07-07 11:00 | Outpatient (RCR) | payer MEDICARE, MEDICAID, SELFPAY ==
[2018-06-14 00:44] VITALS: BP 153/76; PULSE 58; RESP 20; TEMP 36.8
[2018-06-16 11:05] VITALS: BP 158/98; PULSE 52; RESP 18; TEMP 35.7; BMI 53.1
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
[2018-06-23 11:19] VITALS: BP 161/62; PULSE 63; RESP 18; TEMP 37; BMI 53.1
--- NOTE | 2018-06-23 19:36 | PCM.WC.PN ---
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: Chronic Current Visit: Yes Code(s): L97.512 - Non-pressure chronic ulcer of other part of right foot with fat layer exposed (2) Ulcer of right lower extremity with fat layer exposed Status: Resolved Current Visit: Yes Code(s): L97.912 - Non-pressure chronic ulcer of unspecified part of right lower leg with fat layer exposed (3) Infection of right foot Status: Acute Current Visit: Yes Code(s): L08.9 - Local infection of the skin and subcutaneous tissue, unspecified (4) Skin ulcer of left foot Status: Chronic Current Visit: Yes Qualifiers: Non-pressure ulcer stage: limited to breakdown of skin Qualified Code(s): L97.521 - Non-pressure chronic ulcer of other part of left foot limited to breakdown of skin Code(s): L97.529 - Non-pressure chronic ulcer of other part of left foot with unspecified severity (5) Lymphedema Status: Chronic Current Visit: Yes Code(s): I89.0 - Lymphedema, not elsewhere classified (6) Venous insufficiency Status: Chronic Current Visit: Yes Code(s): I87.2 - Venous insufficiency (chronic) (peripheral) (7) Obesity Status: Chronic Current Visit: Yes Code(s): E66.9 - Obesity, unspecified (8) Lower extremity edema Status: Chronic Current Visit: Yes Code(s): R60.0 - Localized edema (9) Type 2 diabetes mellitus with diabetic polyneuropathy Status: Chronic Current Visit: Yes Code(s): E11.42 - Type 2 diabetes mellitus with diabetic polyneuropathy (10) Malnutrition Status: Chronic Current Visit: Yes Code(s): E46 - Unspecified protein-calorie malnutrition Type of Wound Date of Service: 06/23/18 Chief Complaint: right leg ulcer. right foot pain (near great toe-with new odor). right medial heel ulcer. 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 left foot ulcer (previous and new lateral ulcer today). lymphedema and continued leg swelling History of Wound: 63 year old male was seen for right heel ulcer with chronic osteomyelitis, right plantar heel ulcer, right forefoot ulcer, and left foot ulcers. He denies fever, chill, nausea, vomiting. He will continue dressing as advised with Aquacel. He uses the compression pumps 2-3 times a day with significant edema reduction. He completed his vascular surgery angioplasty with Dr. Peng for the left lower extremity. He has received treatment at the lymphedema clinic as well. He uses CircAid compression wraps. He has followed with Dr. Peng as advised and now has bilateral venous procedures planned in the near future. He took antibiotics as advised last week and still notices some odor coming from his right foot. He denies fever, chill, nausea, vomiting. He relates his surgical shoe on the right foot continues to rub while walking. Progress of Wound: Right forefoot ulcer with signs of infection. improving right heel ulcers. left foot ulcer stable. left foot central lateral ulcer healed - Physical Exam Vital Signs Temp Pulse Resp BP 98.6 F 63 18 161/62 H 06/23/18 11:19 06/23/18 11:19 06/23/18 11:19 06/23/18 11:19 General: Alert, Oriented x3, Cooperative HEENT: Atraumatic Extremities: No cyanosis, Capillary Refill Less than 3 Seconds, No Calf Tenderness - Negative Keara and Simmons sign bilateral, Diminished Peripheral Pulses, Edema - Bilateral lower extremities, - - Left transmetatarsal amputation. Right hallux amputation. Skin: Ulcer/ Wound - No purulence, erythema, streaking, odor, or deep tissue exposure noted bilateral. There is continued devitalized subcu first metatarsal head right ulcer site that is devitalized. This is still consistent with infected tissue and status sustained especially in light of his recently reviewed culture results. Callus buildup damian Heel ulcer noted right. Wound Measurements and Assessment WC - Nurse 1 - General Ulcer Measurement Start: 06/16/18 11:05 Freq: Status: Active Protocol: Activity Type Activity Date Activity User E-Sign Co-Sign Detail Recorded Client Recorded Date Recorded By Document 06/23/18 11:19 DL [id number] 06/23/18 11:30 DL 06/23/18 11:19 Wound Center Nurse 1 [Ulcer Assessment] #21 R medial Plantar -Current Size (cm) - Length 2 -Current Size (cm) - Width 1.2 -Current Size (cm) - Depth 0.5 -Total Square Cm 2.4 -Photo Taken No -Undermining/Tunneling Starts (O' 1 clock) -Undermining/Tunneling Ends (O'clock) 4 -Maximum Distance (cm) 0.3 -Exudate Amt Small -Exudate Type Serosanguineous -Wound Margin Thickened -Granulation Amt None Present (0 %) -Necrosis Amt Large (67-100%) -Necrotic Tissue Type Adherent Slough -Structure Exposed N/A -Texture (Damian-wound Skin Appearance) Localized Edema Scarring -Moisture (Damian-wound Skin Appearance Dry/Scaly ) -Color (Damian-wound Skin Appearance) Erythema -Temperature (Damian-wound Skin No Abnormality Appearance) (Pt Warm) -Tenderness on Palpation (Damian-wound No Skin Appearance) -Ulcer Cleansing Wound Cleanser -Foul Odor after Cleansing No 20-right posterior heel -Current Size (cm) - Length 1 -Current Size (cm) - Width 1.6 -Current Size (cm) - Depth 0.2 -Total Square Cm 1.6 -Photo Taken No -Exudate Amt Small -Exudate Type Serosanguineous -Wound Margin Thickened -Granulation Amt Small (1-33%) -Granulation Quality Nipomo -Necrosis Amt Large (67-100%) -Necrotic Tissue Type Adherent Slough -Structure Exposed N/A -Texture (Damian-wound Skin Appearance) Callus Scarring -Moisture (Damian-wound Skin Appearance Dry/Scaly ) -Color (Damian-wound Skin Appearance) Hemosiderin Staining -Temperature (Damian-wound Skin No Abnormality Appearance) (Pt Warm) -Tenderness on Palpation (Damian-wound No Skin Appearance) -Ulcer Cleansing Wound Cleanser -Foul Odor after Cleansing No -Anesthetic Used 4% Lidocaine Solution #4 Left central TMA -Current Size (cm) - Length 0.7 -Current Size (cm) - Width 0.2 -Current Size (cm) - Depth 0.2 -Total Square Cm 0.14 -Exudate Amt Small -Exudate Type Serosanguineous -Wound Margin Flat & Intact -Granulation Amt Small (1-33%) -Granulation Quality Nipomo -Necrosis Amt Small (1-33%) -Necrotic Tissue Type Adherent Slough -Structure Exposed N/A -Texture (Damian-wound Skin Appearance) Scarring -Moisture (Damian-wound Skin Appearance Dry/Scaly ) -Color (Damian-wound Skin Appearance) Hemosiderin Staining -Temperature (Damian-wound Skin No Abnormality Appearance) (Pt Warm) -Tenderness on Palpation (Damian-wound No Skin Appearance) -Ulcer Cleansing Wound Cleanser -Foul Odor after Cleansing No -Anesthetic Used 4% Lidocaine Solution #1 right medial heel -Current Size (cm) - Length 0.9 -Current Size (cm) - Width 1.2 -Current Size (cm) - Depth 0.2 -Total Square Cm 1.08 -Photo Taken No -Exudate Amt Small -Exudate Type Serosanguineous -Wound Margin Thickened -Granulation Amt Medium (34-66%) -Granulation Quality Nipomo -Necrosis Amt Medium (34-66%) -Necrotic Tissue Type Adherent Slough -Structure Exposed N/A -Texture (Damian-wound Skin Appearance) Callus -Moisture (Damian-wound Skin Appearance Dry/Scaly ) -Color (Damian-wound Skin Appearance) Hemosiderin Staining -Temperature (Damian-wound Skin No Abnormality Appearance) (Pt Warm) -Tenderness on Palpation (Damian-wound No Skin Appearance) -Ulcer Cleansing Wound Cleanser -Foul Odor after Cleansing No -Anesthetic Used 4% Lidocaine Solution [Edema Assessment] -Right Calf (cm) 53.2 -Right Ankle (cm) 29.5 -Left Calf (cm) 53 -Left Ankle (cm) 30.1 WC - Nurse 2 - General Ulcer CM Notes Start: 06/16/18 11:05 Freq: Status: Active Protocol: Activity Type Activity Date Activity User E-Sign Co-Sign Detail Recorded Client Recorded Date Recorded By Document 06/23/18 11:39 DL [id number] 06/23/18 11:48 DL 06/23/18 11:39 Wound Center Nurse 2 [Procedure/Treatment] #21 R medial Plantar -Time 11:45 -Correct Patient Yes -Correct Side, Site, Position Yes -Correct Procedure Yes -Procedure Performed Yes -Type of Procedure Debridement -Clinical Debridement Subcutaneous -Post Debridement Size (cm) - Length 2.1 -Post Debridement Size (cm) - Width 1.3 -Post Debridement Size (cm) - Depth 0.5 -Total Square Cm 2.73 -Wound/Ulcer Outcome Not Healed -Ulcer Cleansing Rinsed/ Irrigated with Saline -Foul Odor after Cleansing No -Bioengineered Tissue No -Bleeding Controlled with Pressure -Offloading Yes -Type of Offloading Surgical Shoe -Treatment Response Procedure Tolerated Well 20-right posterior heel -Time 11:46 -Correct Patient Yes -Correct Side, Site, Position Yes -Correct Procedure Yes -Procedure Performed Yes -Type of Procedure Debridement -Clinical Debridement Subcutaneous -Post Debridement Size (cm) - Length 1.1 -Post Debridement Size (cm) - Width 1.7 -Post Debridement Size (cm) - Depth 0.2 -Total Square Cm 1.87 -Wound/Ulcer Outcome Not Healed -Ulcer Cleansing Rinsed/ Irrigated with Saline -Foul Odor after Cleansing No -Bioengineered Tissue No -Bleeding Controlled with Pressure -Offloading Yes -Type of Offloading Surgical Shoe -Treatment Response Procedure Tolerated Well #4 Left central TMA -Time 11:47 -Correct Patient Yes -Correct Side, Site, Position Yes -Correct Procedure Yes -Procedure Performed Yes -Type of Procedure Debridement -Clinical Debridement Subcutaneous -Post Debridement Size (cm) - Length 0.8 -Post Debridement Size (cm) - Width 0.3 -Post Debridement Size (cm) - Depth 0.2 -Total Square Cm 0.24 -Wound/Ulcer Outcome Not Healed -Ulcer Cleansing Rinsed/ Irrigated with Saline -Foul Odor after Cleansing Yes -Bioengineered Tissue No -Bleeding Controlled with Pressure -Offloading Yes -Type of Offloading Surgical Shoe -Treatment Response Procedure Tolerated Well #1 right medial heel -Time 11:47 -Correct Patient Yes -Correct Side, Site, Position Yes -Correct Procedure Yes -Procedure Performed Yes -Type of Procedure Debridement -Clinical Debridement Subcutaneous -Post Debridement Size (cm) - Length 1.1 -Post Debridement Size (cm) - Width 1.7 -Post Debridement Size (cm) - Depth 0.2 -Total Square Cm 1.87 -Wound/Ulcer Outcome Not Healed -Ulcer Cleansing Rinsed/ Irrigated with Saline -Foul Odor after Cleansing No -Bioengineered Tissue No -Bleeding Controlled with Pressure -Offloading Yes -Type of Offloading Surgical Shoe -Treatment Response Procedure Tolerated Well [See Physician Procedure note for Specifics] Pain Scale: 0-10 Numeric [Pain] -Is Patient Pain Free? Yes Musculoskeletal: No Tenderness to Palpation of Joints or Extremities, Muscle Wasting, - - Negative Keara and Simmons signs bilateral. Compartments soft bilateral Neurological: - - Lack of normal epicritic sensation light touch bilateral lower extremities Psych/Mental Status: Normal Affect, Appropriate Debridement Note Post-Debridement Measurements/Treatment WC - Nurse 2 - General Ulcer CM Notes Start: 06/16/18 11:05 Freq: Status: Active Protocol: Activity Type Activity Date Activity User E-Sign Co-Sign Detail Recorded Client Recorded Date Recorded By Document 06/16/18 16:32 AN [id number] 06/16/18 16:37 AN Document 06/23/18 11:39 DL [id number] 06/23/18 11:48 DL 06/16/18 06/23/18 16:32 11:39 Wound Center Nurse 2 #21 R medial Plantar -Time 11:00 11:45 -Correct Patient Yes Yes -Correct Side, Site, Position Yes Yes -Correct Procedure Yes Yes -Procedure Performed Yes Yes -Type of Procedure Debridement Debridement -Clinical Debridement Subcutaneous Subcutaneous -Post Debridement Size (cm) - Length 2.2 2.1 -Post Debridement Size (cm) - Width 1.3 1.3 -Post Debridement Size (cm) - Depth 0.2 0.5 -Total Square Cm 2.86 2.73 -Wound/Ulcer Outcome Not Healed Not Healed -Ulcer Cleansing Rinsed/ Rinsed/ Irrigated with Irrigated with Saline Saline -Foul Odor after Cleansing Yes No -Bioengineered Tissue No No -Bleeding Controlled with Pressure Pressure -Offloading Yes Yes -Type of Offloading Surgical Shoe Surgical Shoe -Treatment Response Procedure Procedure Tolerated Well Tolerated Well 20-right posterior heel -Time 11:00 11:46 -Correct Patient Yes Yes -Correct Side, Site, Position Yes Yes -Correct Procedure Yes Yes -Procedure Performed Yes Yes -Type of Procedure Debridement Debridement -Clinical Debridement Subcutaneous Subcutaneous -Post Debridement Size (cm) - Length 1.0 1.1 -Post Debridement Size (cm) - Width 1.8 1.7 -Post Debridement Size (cm) - Depth 0.2 0.2 -Total Square Cm 1.80 1.87 -Wound/Ulcer Outcome Not Healed Not Healed -Ulcer Cleansing Rinsed/ Rinsed/ Irrigated with Irrigated with Saline Saline -Foul Odor after Cleansing No No -Bioengineered Tissue No No -Bleeding Controlled with NA Pressure -Offloading Yes Yes -Type of Offloading Surgical Shoe Surgical Shoe -Treatment Response Procedure Procedure Tolerated Well Tolerated Well #4 Left central TMA -Time 11:00 11:47 -Correct Patient Yes Yes -Correct Side, Site, Position Yes Yes -Correct Procedure Yes Yes -Procedure Performed Yes Yes -Type of Procedure Debridement Debridement -Clinical Debridement Subcutaneous Subcutaneous -Post Debridement Size (cm) - Length 0.7 0.8 -Post Debridement Size (cm) - Width 0.3 0.3 -Post Debridement Size (cm) - Depth 0.2 0.2 -Total Square Cm 0.21 0.24 -Wound/Ulcer Outcome Not Healed Not Healed -Ulcer Cleansing Rinsed/ Rinsed/ Irrigated with Irrigated with Saline Saline -Foul Odor after Cleansing No Yes -Bioengineered Tissue No No -Bleeding Controlled with Pressure Pressure -Offloading Yes Yes -Type of Offloading Surgical Shoe Surgical Shoe -Treatment Response Procedure Procedure Tolerated Well Tolerated Well #1 right medial heel -Time 11:00 11:47 -Correct Patient Yes Yes -Correct Side, Site, Position Yes Yes -Correct Procedure Yes Yes -Procedure Performed Yes Yes -Type of Procedure Debridement Debridement -Clinical Debridement Subcutaneous Subcutaneous -Post Debridement Size (cm) - Length 1.1 1.1 -Post Debridement Size (cm) - Width 1.4 1.7 -Post Debridement Size (cm) - Depth 0.2 0.2 -Total Square Cm 1.54 1.87 -Wound/Ulcer Outcome Not Healed Not Healed -Ulcer Cleansing Rinsed/ Rinsed/ Irrigated with Irrigated with Saline Saline -Foul Odor after Cleansing No No -Bioengineered Tissue Yes No -Type of bioengineered Tissue [id number] -Expiration Date 06/04/20 -Product Lot Number [id number] -Percent Used 100 -Saline Lot Number [id number] -Topical Lidocaine (%) 4 -Injectable Lidocaine (%) 4 -Bleeding Controlled with Pressure Pressure -Offloading Yes Yes -Type of Offloading Surgical Shoe Surgical Shoe -Treatment Response Procedure Procedure Tolerated Well Tolerated Well Pain Scale: 0-10 Numeric Is Patient Pain Free? Yes Yes Wound debrided: plantar first metatarsal head Laterality: Right Wound Grade/Stage: grade 1 Type of Debridement: Excisional debridement Anesthesia Used: 5% Lidocaine Gel Depth: in the subcutaneous layer Percentage of wound debrided: 100 Instrument Used: #15 blade Tissue Removed: {series:a6 Severity: Fat Layer Exposed Amount of bleeding with debridement: Mild Bleeding Controlled with: Pressure Patient tolerated procedure well - Additional Wound Wound debrided: heel posterior Laterality: Right Wound Grade/Stage: grade 3 Type of Debridement: Excisional debridement Anesthesia Used: 5% Lidocaine Gel Depth: in the subcutaneous layer Percentage of wound debrided: 100 Instrument Used: #15 blade Tissue Removed: fibrous, devitalized subcutaneous, biofilm, slough Severity: Fat Layer Exposed Amount of bleeding with debridement: Mild Bleeding Controlled with: Pressure Patient tolerated procedure: Patient tolerated procedure well - Additional Wound Wound debrided: heel plantar distal heel Laterality: Right Wound Grade/Stage: grade 1 Type of Debridement: Excisional debridement Anesthesia Used: 5% Lidocaine Gel Depth: in the subcutaneous layer Percentage of wound debrided: 100 Instrument Used: #15 blade Tissue Removed: fibrous, devitalized subcutaneous, biofilm, slough Severity: Fat Layer Exposed Amount of bleeding with debridement: Mild Bleeding Controlled with: Pressure Patient tolerated procedure: Patient tolerated procedure well - Additional Wound Wound debrided: distal stump site Laterality: Left Wound Grade/Stage: grade 1 Type of Debridement: Excisional debridement Anesthesia Used: 5% Lidocaine Gel Depth: in the subcutaneous layer Percentage of wound debrided: 100 Instrument Used: #15 blade Tissue Removed: fibrous, devitalized subcutaneous, biofilm, slough Severity: Fat Layer Exposed Amount of bleeding with debridement: Mild Bleeding Controlled with: Pressure Patient tolerated procedure: Patient tolerated procedure well Assessment/Plan Active Problems Lymphedema (Chronic) Venous insufficiency (Chronic) Ulcer of right foot with fat layer exposed (Chronic) Infection of right foot (Acute) Skin ulcer of left foot (Chronic) Obesity (Chronic) Lower extremity edema (Chronic) Type 2 diabetes mellitus with diabetic polyneuropathy (Chronic) Malnutrition (Chronic) Assessment: Right forefoot medial ulcer with worsening status and now infection. Right heel ulcer with delayed healing -stable. Plantar posterior heel ulcer -stable. Left foot ulcer central TMA site - healed. Foot ulcer central lateral TMA site - improving. Diabetes with neuropathy. lymphedema and continued leg swelling. peripheral vacular disease. venous insufficiency Plan: I discussed his case and treatment plan. Subcutaneous excisional debridement was performed to all sites as noted in the nursing clinical panel. To continue daily dressing changes with Aquacel. The forefoot ulcer culture was obtained and and multi-organism growth including anaerobic cocci, Klebsiella oxytoca, Enterobacter cloaca were noted his drug resistances and multiple previous reported allergies . Are noted. To continue on Augmentin and I recommend additional coverage with Bactrim. I recommend infectious disease consultation and he will be scheduled for next week. His labs were reviewed including white blood cell count of 6.2, sedimentation rate of 55, C-reactive protein of 11.7, creatinine of 1.3, and albumin of 3. X-rays were reviewed without any soft tissue emphysema foreign body or osseous destruction adjacent to the ulcer site. It is noted he completed a full course of advanced wound care product, epifix,application. He is completed additional home course of Regranex. To maintain improved skin integrity by applying lac hydrin lotion to both legs daily. Continue circaid wraps bilateral legs daily; it is okay to apply tubigrip prior to application of CircAid foot wrap to better keep his wound dressings in place. To continue compression pump device daily; he is doing well with this. To proceed as previously advised with his lymphedema follow-up as advised. He is discharged from the [facility] at this time. Farrow compression garments to promote improved continued edema management at a more proximal level was approved for right lower extremity use; to use as advised. It is noted he was not approved for the left lower extremity because he did not meet qualifying criteria of open left leg current ulcer site. To continue Lasix use as advised by primary care physician. To continue with portion control for weight loss and proper glycemic control and nutritional supplementation to optimize healing. His hemoglobin A1c went from 9.0 to 7.4. To continue strict offloading to all these ulcer sites. He has a donut offloading pillow and he was advised to use this. To follow-up with Dr. Peng as advised for the recommended bilateral intervention, venous. His recent vascular intervention in the left lower extremity is noted. To additionally offload the left distal stump site with an aperture pad. He will resume use. All of his questions were answered. He understands he is still at risk for limb loss. . To follow-up at the wound care center in 1 week or call sooner if he has any questions or concerns.
[2018-06-30 13:15] VITALS: BP 163/75; PULSE 83; RESP 20; TEMP 37.1; BMI 53.1
--- NOTE | 2018-06-30 15:22 | PCM.WC.PN ---
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: Chronic Code(s): L97.512 - Non-pressure chronic ulcer of other part of right foot with fat layer exposed (2) Infection of right foot Status: Resolved Code(s): L08.9 - Local infection of the skin and subcutaneous tissue, unspecified (3) Skin ulcer of left foot Status: Chronic Qualifiers: Non-pressure ulcer stage: limited to breakdown of skin Qualified Code(s): L97.521 - Non-pressure chronic ulcer of other part of left foot limited to breakdown of skin Code(s): L97.529 - Non-pressure chronic ulcer of other part of left foot with unspecified severity (4) Lymphedema Status: Chronic Code(s): I89.0 - Lymphedema, not elsewhere classified (5) Venous insufficiency Status: Chronic Code(s): I87.2 - Venous insufficiency (chronic) (peripheral) (6) Obesity Status: Chronic Code(s): E66.9 - Obesity, unspecified (7) Lower extremity edema Status: Chronic Code(s): R60.0 - Localized edema (8) Type 2 diabetes mellitus with diabetic polyneuropathy Status: Chronic Code(s): E11.42 - Type 2 diabetes mellitus with diabetic polyneuropathy (9) Malnutrition Status: Chronic Code(s): E46 - Unspecified protein-calorie malnutrition Type of Wound Date of Service: 06/30/18 Chief Complaint: right foot pain (near great toe-with resolved odor). right medial heel ulcer. Right plantar posterior heel (oldest heel ulcer). s/p left foot with superficial ulcer at transmetatarsal amputation site. lymphedema and continued leg swelling History of Wound: 63 year old male was seen for right heel ulcer with chronic osteomyelitis, right plantar heel ulcer, right forefoot ulcer, and left foot ulcers. He denies fever, chill, nausea, vomiting. He will continue dressing as advised with Aquacel. He uses the compression pumps 2-3 times a day with significant edema reduction. He completed his vascular surgery angioplasty with Dr. Peng for the left lower extremity. He has received treatment at the lymphedema clinic as well. He uses CircAid compression wraps. He has followed with Dr. Peng as advised and now has bilateral venous procedures planned in the near future. He took antibiotics as advised last week and still notices some odor coming from his right foot. He denies fever, chill, nausea, vomiting. He relates his surgical shoe on the right foot continues to rub while walking. Progress of Wound: Right forefoot ulcer with signs of infection resolving. improving right heel ulcers. left foot central lateral ulcer stable - Physical Exam Vital Signs Temp Pulse Resp BP 98.7 F 83 20 H 163/75 H 06/30/18 13:15 06/30/18 13:15 06/30/18 13:15 06/30/18 13:15 General: Alert, Oriented x3, Cooperative HEENT: Atraumatic Extremities: No cyanosis, Capillary Refill Less than 3 Seconds, No Calf Tenderness - Negative Keara and Simmons signs bilateral, Diminished Peripheral Pulses, Edema - Mild to moderate bilateral lower extremities, - - Left transmetatarsal amputation right hallux amputation Skin: Ulcer/ Wound - No purulence, erythema, streaking, odor, infection, bogginess, fluctuation, or maceration. These plantar medial first metatarsal head ulcer site that was previously infected has resolved devitalized tissue noted. This ulcer site is no longer superficial and there is deeper exposed adipose tissue. There is no exposed bone or joint noted. The peripheral skin to bilateral lower extremities are atrophic and hairless. The left foot ulcer site has partial discontinuity of the epithelial layer only Wound Measurements and Assessment WC - Nurse 1 - General Ulcer Measurement Start: 06/16/18 11:05 Freq: Status: Active Protocol: Activity Type Activity Date Activity User E-Sign Co-Sign Detail Recorded Client Recorded Date Recorded By Document 06/30/18 13:15 RB [id number] 06/30/18 13:25 RB 06/30/18 13:15 Wound Center Nurse 1 [Ulcer Assessment] #21 R medial Plantar -Combined with other wound No -Current Size (cm) - Length 2 -Current Size (cm) - Width 1.3 -Current Size (cm) - Depth 0.5 -Total Square Cm 2.6 -Tunneling No -Undermining/Tunneling No -Circular Undermining No -Exudate Amt Medium -Exudate Type Serous -Wound Margin Distinct, Outline Attached -Granulation Amt Medium (34-66%) -Granulation Quality [place] -Slough/Fibrin Yes -Necrosis Amt Medium (34-66%) -Necrotic Tissue Type Adherent Slough -Structure Exposed N/A -Texture (Susy-wound Skin Appearance) Assessed Callus -Moisture (Susy-wound Skin Appearance Assessed ) -Color (Susy-wound Skin Appearance) Assessed -Temperature (Susy-wound Skin No Abnormality Appearance) (Pt Warm) -Tenderness on Palpation (Susy-wound No Skin Appearance) -Ulcer Cleansing Rinsed/ Irrigated with Saline -Foul Odor after Cleansing No -Anesthetic Used 5% Lidocaine Gel 20-right posterior heel -Combined with other wound No -Current Size (cm) - Length 1.2 -Current Size (cm) - Width 1.6 -Current Size (cm) - Depth 0.2 -Total Square Cm 1.92 -Tunneling No -Undermining/Tunneling No -Circular Undermining No -Exudate Amt Small -Exudate Type Serosanguineous -Wound Margin Distinct, Outline Attached -Granulation Amt Medium (34-66%) -Granulation Quality [place] -Slough/Fibrin Yes -Necrosis Amt Small (1-33%) -Necrotic Tissue Type Adherent Slough -Structure Exposed N/A -Texture (Susy-wound Skin Appearance) Callus -Moisture (Susy-wound Skin Appearance Assessed ) -Color (Susy-wound Skin Appearance) Assessed -Temperature (Susy-wound Skin No Abnormality Appearance) (Pt Warm) -Tenderness on Palpation (Susy-wound No Skin Appearance) -Ulcer Cleansing Rinsed/ Irrigated with Saline -Foul Odor after Cleansing No -Anesthetic Used 5% Lidocaine Gel #4 Left central TMA -Combined with other wound No -Current Size (cm) - Length 0.5 -Current Size (cm) - Width 0.2 -Current Size (cm) - Depth 0.2 -Total Square Cm 0.10 -Tunneling No -Undermining/Tunneling No -Circular Undermining No -Exudate Amt Small -Exudate Type Serosanguineous -Wound Margin Distinct, Outline Attached -Granulation Amt Medium (34-66%) -Granulation Quality [place] -Slough/Fibrin Yes -Necrosis Amt Small (1-33%) -Necrotic Tissue Type Adherent Slough -Structure Exposed N/A -Texture (Susy-wound Skin Appearance) Assessed Callus -Moisture (Susy-wound Skin Appearance Assessed ) -Color (Susy-wound Skin Appearance) Assessed -Temperature (Susy-wound Skin No Abnormality Appearance) (Pt Warm) -Tenderness on Palpation (Susy-wound No Skin Appearance) -Foul Odor after Cleansing No -Anesthetic Used 5% Lidocaine Gel #1 right medial heel -Combined with other wound No -Current Size (cm) - Length 1.2 -Current Size (cm) - Width 1 -Current Size (cm) - Depth 0.2 -Total Square Cm 1.2 -Tunneling No -Undermining/Tunneling No -Circular Undermining No -Exudate Amt Small -Exudate Type Serosanguineous -Wound Margin Distinct, Outline Attached -Granulation Amt Medium (34-66%) -Granulation Quality [place] -Slough/Fibrin Yes -Necrosis Amt Small (1-33%) -Necrotic Tissue Type Adherent Slough -Structure Exposed N/A -Texture (Susy-wound Skin Appearance) Assessed Callus -Moisture (Susy-wound Skin Appearance Assessed ) -Color (Susy-wound Skin Appearance) Assessed -Temperature (Susy-wound Skin No Abnormality Appearance) (Pt Warm) -Tenderness on Palpation (Susy-wound No Skin Appearance) -Ulcer Cleansing Rinsed/ Irrigated with Saline -Foul Odor after Cleansing No -Anesthetic Used 4% Lidocaine Solution [Edema Assessment] -Lower Limb Edema Present Yes -Right Calf (cm) 53.5 -Right Ankle (cm) 29.5 -Left Calf (cm) 53.6 -Left Ankle (cm) 30 WC - Nurse 2 - General Ulcer CM Notes Start: 06/16/18 11:05 Freq: Status: Active Protocol: Activity Type Activity Date Activity User E-Sign Co-Sign Detail Recorded Client Recorded Date Recorded By Document 06/30/18 13:36 NORRIS [id number] 06/30/18 13:38 NORRIS 06/30/18 13:36 Wound Center Nurse 2 [Procedure/Treatment] #21 R medial Plantar -Time 13:37 -Correct Patient Yes -Correct Side, Site, Position Yes -Correct Procedure Yes -Procedure Performed Yes -Type of Procedure Debridement -Clinical Debridement Subcutaneous -Post Debridement Size (cm) - Length 1.2 -Post Debridement Size (cm) - Width 1.1 -Post Debridement Size (cm) - Depth 0.2 -Total Square Cm 1.32 -Wound/Ulcer Outcome Not Healed -Ulcer Cleansing Rinsed/ Irrigated with Saline -Foul Odor after Cleansing No -Bioengineered Tissue No -Bleeding Controlled with Pressure -Offloading Yes -Type of Offloading Surgical Shoe -Treatment Response Procedure Tolerated Well 20-right posterior heel -Time 13:37 -Correct Patient Yes -Correct Side, Site, Position Yes -Correct Procedure Yes -Procedure Performed Yes -Type of Procedure Debridement -Clinical Debridement Subcutaneous -Post Debridement Size (cm) - Length 2.1 -Post Debridement Size (cm) - Width 1.3 -Post Debridement Size (cm) - Depth 0.5 -Total Square Cm 2.73 -Wound/Ulcer Outcome Not Healed -Ulcer Cleansing Rinsed/ Irrigated with Saline -Foul Odor after Cleansing No -Bioengineered Tissue No -Bleeding Controlled with Pressure -Offloading Yes -Type of Offloading Surgical Shoe -Treatment Response Procedure Tolerated Well #4 Left central TMA -Time 13:37 -Correct Patient Yes -Correct Side, Site, Position Yes -Correct Procedure Yes -Procedure Performed Yes -Type of Procedure Debridement -Clinical Debridement Subcutaneous -Post Debridement Size (cm) - Length 0.5 -Post Debridement Size (cm) - Width 0.3 -Post Debridement Size (cm) - Depth 0.2 -Total Square Cm 0.15 -Wound/Ulcer Outcome Not Healed -Ulcer Cleansing Rinsed/ Irrigated with Saline -Foul Odor after Cleansing No -Bioengineered Tissue No -Bleeding Controlled with Pressure -Offloading Yes -Type of Offloading Surgical Shoe -Treatment Response Procedure Tolerated Well #1 right medial heel -Time 13:38 -Correct Patient Yes -Correct Side, Site, Position Yes -Correct Procedure Yes -Procedure Performed Yes -Type of Procedure Debridement -Clinical Debridement Subcutaneous -Post Debridement Size (cm) - Length 1.2 -Post Debridement Size (cm) - Width 1.7 -Post Debridement Size (cm) - Depth 0.1 -Total Square Cm 2.04 -Wound/Ulcer Outcome Not Healed -Ulcer Cleansing Rinsed/ Irrigated with Saline -Foul Odor after Cleansing No -Bioengineered Tissue No -Bleeding Controlled with Pressure -Offloading Yes -Type of Offloading Surgical Shoe -Treatment Response Procedure Tolerated Well [See Physician Procedure note for Specifics] Pain Scale: 0-10 Numeric [Pain] -Is Patient Pain Free? Yes Musculoskeletal: No Tenderness to Palpation of Joints or Extremities, Muscle Wasting Neurological: - - Lack of epicritic sensation light touch bilateral lower extremities is consistent with neuropathy Psych/Mental Status: Normal Affect, Appropriate Debridement Note Post-Debridement Measurements/Treatment WC - Nurse 2 - General Ulcer CM Notes Start: 06/16/18 11:05 Freq: Status: Active Protocol: Activity Type Activity Date Activity User E-Sign Co-Sign Detail Recorded Client Recorded Date Recorded By Document 06/16/18 16:32 AN [id number] 06/16/18 16:37 AN Document 06/23/18 11:39 DL [id number] 06/23/18 11:48 DL Document 06/30/18 13:36 JF [id number] 06/30/18 13:38 JF 06/16/18 06/23/18 06/30/18 16:32 11:39 13:36 Wound Center Nurse 2 #21 R medial Plantar -Time 11:00 11:45 13:37 -Correct Patient Yes Yes Yes -Correct Side, Site, Position Yes Yes Yes -Correct Procedure Yes Yes Yes -Procedure Performed Yes Yes Yes -Type of Procedure Debridement Debridement Debridement -Clinical Debridement Subcutaneous Subcutaneous Subcutaneous -Post Debridement Size (cm) - Length 2.2 2.1 1.2 -Post Debridement Size (cm) - Width 1.3 1.3 1.1 -Post Debridement Size (cm) - Depth 0.2 0.5 0.2 -Total Square Cm 2.86 2.73 1.32 -Wound/Ulcer Outcome Not Healed Not Healed Not Healed -Ulcer Cleansing Rinsed/ Rinsed/ Rinsed/ Irrigated with Irrigated with Irrigated with Saline Saline Saline -Foul Odor after Cleansing Yes No No -Bioengineered Tissue No No No -Bleeding Controlled with Pressure Pressure Pressure -Offloading Yes Yes Yes -Type of Offloading Surgical Shoe Surgical Shoe Surgical Shoe -Treatment Response Procedure Procedure Procedure Tolerated Well Tolerated Well Tolerated Well 20-right posterior heel -Time 11:00 11:46 13:37 -Correct Patient Yes Yes Yes -Correct Side, Site, Position Yes Yes Yes -Correct Procedure Yes Yes Yes -Procedure Performed Yes Yes Yes -Type of Procedure Debridement Debridement Debridement -Clinical Debridement Subcutaneous Subcutaneous Subcutaneous -Post Debridement Size (cm) - Length 1.0 1.1 2.1 -Post Debridement Size (cm) - Width 1.8 1.7 1.3 -Post Debridement Size (cm) - Depth 0.2 0.2 0.5 -Total Square Cm 1.80 1.87 2.73 -Wound/Ulcer Outcome Not Healed Not Healed Not Healed -Ulcer Cleansing Rinsed/ Rinsed/ Rinsed/ Irrigated with Irrigated with Irrigated with Saline Saline Saline -Foul Odor after Cleansing No No No -Bioengineered Tissue No No No -Bleeding Controlled with NA Pressure Pressure -Offloading Yes Yes Yes -Type of Offloading Surgical Shoe Surgical Shoe Surgical Shoe -Treatment Response Procedure Procedure Procedure Tolerated Well Tolerated Well Tolerated Well #4 Left central TMA -Time 11:00 11:47 13:37 -Correct Patient Yes Yes Yes -Correct Side, Site, Position Yes Yes Yes -Correct Procedure Yes Yes Yes -Procedure Performed Yes Yes Yes -Type of Procedure Debridement Debridement Debridement -Clinical Debridement Subcutaneous Subcutaneous Subcutaneous -Post Debridement Size (cm) - Length 0.7 0.8 0.5 -Post Debridement Size (cm) - Width 0.3 0.3 0.3 -Post Debridement Size (cm) - Depth 0.2 0.2 0.2 -Total Square Cm 0.21 0.24 0.15 -Wound/Ulcer Outcome Not Healed Not Healed Not Healed -Ulcer Cleansing Rinsed/ Rinsed/ Rinsed/ Irrigated with Irrigated with Irrigated with Saline Saline Saline -Foul Odor after Cleansing No Yes No -Bioengineered Tissue No No No -Bleeding Controlled with Pressure Pressure Pressure -Offloading Yes Yes Yes -Type of Offloading Surgical Shoe Surgical Shoe Surgical Shoe -Treatment Response Procedure Procedure Procedure Tolerated Well Tolerated Well Tolerated Well #1 right medial heel -Time 11:00 11:47 13:38 -Correct Patient Yes Yes Yes -Correct Side, Site, Position Yes Yes Yes -Correct Procedure Yes Yes Yes -Procedure Performed Yes Yes Yes -Type of Procedure Debridement Debridement Debridement -Clinical Debridement Subcutaneous Subcutaneous Subcutaneous -Post Debridement Size (cm) - Length 1.1 1.1 1.2 -Post Debridement Size (cm) - Width 1.4 1.7 1.7 -Post Debridement Size (cm) - Depth 0.2 0.2 0.1 -Total Square Cm 1.54 1.87 2.04 -Wound/Ulcer Outcome Not Healed Not Healed Not Healed -Ulcer Cleansing Rinsed/ Rinsed/ Rinsed/ Irrigated with Irrigated with Irrigated with Saline Saline Saline -Foul Odor after Cleansing No No No -Bioengineered Tissue Yes No No -Type of bioengineered Tissue [id number] -Expiration Date 06/04/20 -Product Lot Number [id number] -Percent Used 100 -Saline Lot Number [id number] -Topical Lidocaine (%) 4 -Injectable Lidocaine (%) 4 -Bleeding Controlled with Pressure Pressure Pressure -Offloading Yes Yes Yes -Type of Offloading Surgical Shoe Surgical Shoe Surgical Shoe -Treatment Response Procedure Procedure Procedure Tolerated Well Tolerated Well Tolerated Well Pain Scale: 0-10 Numeric Is Patient Pain Free? Yes Yes Yes Wound debrided: plantar medial forefoot Laterality: Right Wound Grade/Stage: grade 1 Type of Debridement: Excisional debridement Anesthesia Used: 5% Lidocaine Gel Depth: in the subcutaneous layer Percentage of wound debrided: 100 Instrument Used: #15 blade Tissue Removed: fibrous, devitalized subcutaneous, biofilm, slough Severity: Fat Layer Exposed Amount of bleeding with debridement: Mild Bleeding Controlled with: Pressure Patient tolerated procedure well - Additional Wound Wound debrided: heel posterior plantar Laterality: Right Wound Grade/Stage: grade 3 Type of Debridement: Excisional debridement Anesthesia Used: 5% Lidocaine Gel Depth: in the subcutaneous layer Percentage of wound debrided: 100 Instrument Used: #15 blade Tissue Removed: fibrous, devitalized subcutaneous, biofilm, slough Severity: Fat Layer Exposed Amount of bleeding with debridement: Mild Bleeding Controlled with: Pressure Patient tolerated procedure: Patient tolerated procedure well - Additional Wound Wound debrided: plantar heel (newer) Laterality: Right Wound Grade/Stage: grade 1 Type of Debridement: Excisional debridement Anesthesia Used: 5% Lidocaine Gel Depth: in the subcutaneous layer Percentage of wound debrided: 100 Instrument Used: #15 blade Tissue Removed: fibrous, devitalized subcutaneous, biofilm, slough Severity: Fat Layer Exposed Amount of bleeding with debridement: Mild Bleeding Controlled with: Pressure Patient tolerated procedure: Patient tolerated procedure well - Additional Wound Wound debrided: distal central foot (stump) Laterality: Left Wound Grade/Stage: grade 1 Type of Debridement: Excisional debridement Anesthesia Used: 5% Lidocaine Gel Depth: in the subcutaneous layer Percentage of wound debrided: 100 Instrument Used: #15 blade Tissue Removed: fibrous, devitalized subcutaneous, biofilm, slough Severity: Fat Layer Exposed Amount of bleeding with debridement: Mild Bleeding Controlled with: Pressure Patient tolerated procedure: Patient tolerated procedure well Assessment/Plan Assessment: Right forefoot medial ulcer with worsening status and now infection. Right heel ulcer with delayed healing -stable. Plantar posterior heel ulcer -stable. Left foot ulcer central TMA site -stable. Foot ulcer central lateral TMA site -healed. Diabetes with neuropathy. lymphedema and continued leg swelling. peripheral vacular disease. venous insufficiency Plan: I discussed his case and treatment plan. Subcutaneous excisional debridement was performed to all sites as noted in the nursing clinical panel. To continue daily dressing changes with Aquacel. The forefoot ulcer culture was obtained and and multi-organism growth including anaerobic cocci, Klebsiella oxytoca, Enterobacter cloaca were noted his drug resistances and multiple previous reported allergies. I recommend infectious disease consultation and this was performed today. Dr. Bartlett was in agreement with Augmentin and Bactrim course; he was advised to complete this. If deeper tissues exposed or the infection returns he will follow-up again with infectious disease to discuss further intervention options. His labs were reviewed including white blood cell count of 6.2, sedimentation rate of 55, C-reactive protein of 11.7, creatinine of 1.3, and albumin of 3. X-rays were reviewed without any soft tissue emphysema foreign body or osseous destruction adjacent to the ulcer site. It is noted he completed a full course of advanced wound care product, epifix,application. He is completed additional home course of Regranex. To maintain improved skin integrity by applying lac hydrin lotion to both legs daily. Continue circaid wraps bilateral legs daily; it is okay to apply tubigrip prior to application of CircAid foot wrap to better keep his wound dressings in place. To continue compression pump device daily; he is doing well with this. To proceed as previously advised with his lymphedema follow-up as advised. He is discharged from the [facility] at this time. [place]arrow compression garments to promote improved continued edema management at a more proximal level was approved for right lower extremity use; to use as advised. It is noted he was not approved for the left lower extremity because he did not meet qualifying criteria of open left leg current ulcer site. To continue Lasix use as advised by primary care physician. To continue with portion control for weight loss and proper glycemic control and nutritional supplementation to optimize healing. His hemoglobin A1c went from 9.0 to 7.4. To continue strict offloading to all these ulcer sites. He has a donut offloading pillow and he was advised to use this. To follow-up with Dr. Peng as advised for the recommended bilateral intervention, venous. His recent vascular intervention in the left lower extremity is noted. To additionally offload the left distal stump site with an aperture pad. He will resume use. All of his questions were answered. He understands he is still at risk for limb loss. . To follow-up at the wound care center in 1 week or call sooner if he has any questions or concerns.
--- NOTE | 2018-06-30 16:26 | PCM.PN.ID ---
Patient Problems: Active and Suspected Problems Infection of right foot (Acute) Subjective: Feeling ok, foot odor has resolved, no drainage, no fever, no n/v/d. - Physical Exam General: Alert, Cooperative, No apparent distress Lungs: Clear to auscultation, Normal air movement Cardiovascular: Regular rate, Regular Rhythm Abdomen: Soft, Non Tender, Non-Distended Skin: Ulcer/ Wound - R 1st MTP ulcer with no surrounding erythema Vital Signs Temp Pulse Resp BP 98.7 F 83 20 H 163/75 H 06/30/18 13:15 06/30/18 13:15 06/30/18 13:15 06/30/18 13:15 Body Mass Index (BMI) 53.1 Finger Stick Blood Glucose 207 Medical Necessity - Tobacco Use Smoking Status: Never smoker Route of nutrition/ use of supplements: [] Nutritional Intake: [] IV Site: [] Hernandez Catheter: [] - Assessment/Plan Antibiotics: [] Assessment/Plan: [] Active and Suspected Problems Infection of right foot (Acute) Recent wound cx with corynebacterium, klebs, enterobacter, and anaerobes. D/w Dr. Hernández, much improved with course of bactrim and augmentin, agree with him completing course and continuing with monitoring for signs of recurrent infection. Will follow as needed.
[2018-07-07 11:30] VITALS: TEMP 36.2; BMI 53.1
--- NOTE | 2018-07-07 14:14 | PN.PCM_ITS ---
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: Chronic Current Visit: Yes Code(s): L97.512 - Non-pressure chronic ulcer of other part of right foot with fat layer exposed (2) Infection of right foot Status: Resolved Current Visit: Yes Code(s): L08.9 - Local infection of the skin and subcutaneous tissue, unspecified (3) Skin ulcer of left foot Status: Chronic Current Visit: Yes Qualifiers: Non-pressure ulcer stage: limited to breakdown of skin Qualified Code(s): L97.521 - Non-pressure chronic ulcer of other part of left foot limited to breakdown of skin Code(s): L97.529 - Non-pressure chronic ulcer of other part of left foot with unspecified severity (4) Lymphedema Status: Chronic Current Visit: Yes Code(s): I89.0 - Lymphedema, not elsewhere classified (5) Venous insufficiency Status: Chronic Current Visit: Yes Code(s): I87.2 - Venous insufficiency (chronic) (peripheral) (6) Obesity Status: Chronic Current Visit: Yes Code(s): E66.9 - Obesity, unspecified (7) Lower extremity edema Status: Chronic Current Visit: Yes Code(s): R60.0 - Localized edema (8) Type 2 diabetes mellitus with diabetic polyneuropathy Status: Chronic Current Visit: Yes Code(s): E11.42 - Type 2 diabetes mellitus with diabetic polyneuropathy (9) Malnutrition Status: Chronic Current Visit: Yes Code(s): E46 - Unspecified protein- calorie malnutrition Type of Wound Date of Service: 07/07/18 Chief Complaint: right foot pain resolved. right medial heel ulcer. Right plantar posterior heel (oldest heel ulcer). s/p left foot with superficial ulcer at transmetatarsal amputation site. lymphedema and continued leg swelling History of Wound: 63 year old male was seen for right heel ulcer with chronic osteomyelitis, right plantar heel ulcer, right forefoot ulcer, and left foot ulc ers. He denies fever, chill, nausea, vomiting. He will continue dressing as advised with Aquacel. He uses the compression pumps 2-3 times a day with significant edema reduction. He completed his vascular surgery angioplasty with Dr. Peng for the left lower extremity. He has received treatment at the lymphedema clinic as well. He uses CircAid compression wraps. He has followed with Dr. Peng as advised and now has bilateral venous procedures planned in the near future. He took antibiotics as advised last week and still notices some odor coming from his right foot. He denies fever, chill, nausea, vomiting. He denies using the recommended aperture pad on the left foot. Progress of Wound: Right forefoot ulcer with signs of infection resolved. St able right heel ulcers. left foot central lateral ulcer stable - Physical Exam Vital Signs Temp Pulse Resp BP 97.2 F L 83 20 H 163/75 H 07/07/18 11:30 06/30/18 13:15 06/30/18 13:15 06/30/18 13:15 General: Alert, Oriented x3, Cooperative HEENT: Atraumatic Extremities: No cyanosis, Capillary Refill Less than 3 Seconds, No Calf Tenderness - negative Keara and Simmons bilateral, Diminished Peripheral Pulses, Edema - Bilateral lower extremities, - - Left transmetatarsal amputation right hallux amputation Skin: Ulcer/ Wound - No purulence, erythema, streaking, odor, or infection bilateral. Tissue quality to the plantar medial first metatarsal head right foot ulcer is improving there is no probe to bone. Scant serous drainage to the left ulcer site is just have hemorrhagic without granulation or deeper tissue exposed. The peripheral skin is hairless and atrophic. Bilateral Wound Measurements and Assessment WC - Nurse 1 - General Ulcer Measurement Start: 06/16/18 11:05 Freq: Status: Active Protocol: Activity Type Activity Date Activity User E-Sign Co-Sign Detail Recorded Client Recorded Date Recorded By Document 07/07/18 11:30 DV [id number] 07/07/18 11:39 DV 07/07/18 11:30 Wound Center Nurse 1 [Ulcer Assessment] #21 R medial Plantar -Combined with other wound No -Current Size (cm) - Length 1.9 -Current Size (cm) - Width 1.0 -Current Size (cm) - Depth 0.5 -Total Square Cm 1.90 -Photo Taken No -Epithelialization None Present 20-right posterior heel -Combined with other wound No -Current Size (cm) - Length 0.9 -Current Size (cm) - Width 1.6 -Current Size (cm) - Depth 0.2 -Total Square Cm 1.44 #4 Left central TMA -Combined with other wound No -Current Size (cm) - Length 0.1 -Current Size (cm) - Width 0.1 -Current Size (cm) - Depth 0.1 -Total Square Cm 0.01 -Photo Taken No -Epithelialization None Present -Tunneling No -Undermining/Tunneling No -Circular Undermining No -Exudate Amt None Present -Texture (Susy-wound Skin Appearance) No Abnormality Assessed -Moisture (Susy-wound Skin Appearance No Abnormality ) Assessed -Color (Susy-wound Skin Appearance) No Abnormality Assessed -Temperature (Susy-wound Skin No Abnormality Appearance) (Pt Warm) -Tenderness on Palpation (Susy-wound No Skin Appearance) -Ulcer Cleansing Rinsed/ Irrigated with Saline -Foul Odor after Cleansing No -Anesthetic Used 4% Lidocaine Solution #1 right medial heel -Combined with other wound No -Current Size (cm) - Length 0.8 -Current Size (cm) - Width 11 -Current Size (cm) - Depth 0.2 -Total Square Cm 8.8 -Photo Taken No -Epithelialization None Present -Undermining/Tunneling No -Circular Undermining No -Exudate Amt Medium -Exudate Type Serosanguineous -Wound Margin Flat & Intact -Granulation Amt None Present (0 %) -Granulation Quality N/A -Slough/Fibrin Yes -Necrosis Amt Large (67-100%) -Necrotic Tissue Type Adherent Slough -Structure Exposed None/Limited to Skin Breakdown -Texture (Susy-wound Skin Appearance) Assessed Localized Edema Scarring -Moisture (Susy-wound Skin Appearance Assessed ) Weeping -Color (Susy-wound Skin Appearance) Assessed Palor -Temperature (Susy-wound Skin No Abnormality Appearance) (Pt Warm) -Tenderness on Palpation (Susy-wound No Skin Appearance) -Ulcer Cleansing soap -Foul Odor after Cleansing No -Anesthetic Used 4% Lidocaine Solution [Edema Assessment] -Lower Limb Edema Present Yes -Right Calf (cm) 49.5 -Right Ankle (cm) 29.0 -Left Calf (cm) 51.5 -Left Ankle (cm) 30.5 WC - Nurse 2 - General Ulcer CM Notes Start: 06/16/18 11:05 Freq: Status: Active Protocol: Activity Type Activity Date Activity User E-Sign Co-Sign Detail Recorded Client Recorded Date Recorded By Document 07/07/18 11:58 AN [id number] 07/07/18 12:08 AN 07/07/18 11:58 Wound Center Nurse 2 [Procedure/Treatment] #21 R medial Plantar -Time 12:00 -Correct Patient Yes -Correct Side, Site, Position Yes -Correct Procedure Yes -Procedure Performed Yes -Type of Procedure Debridement -Clinical Debridement Subcutaneous -Post Debridement Size (cm) - Length 0.9 -Post Debridement Size (cm) - Width 1.2 -Post Debridement Size (cm) - Depth 0.2 -Total Square Cm 1.08 -Wound/Ulcer Outcome Not Healed -Ulcer Cleansing Rinsed/ Irrigated with Saline -Foul Odor after Cleansing No -Bioengineered Tissue No -Bleeding Controlled with Pressure -Offloading Yes -Type of Offloading Surgical Shoe -Treatment Response Procedure Tolerated Well 20-right posterior heel -Time 12:06 -Correct Patient Yes -Correct Side, Site, Position Yes -Correct Procedure Yes -Procedure Performed Yes -Type of Procedure Debridement -Clinical Debridement Subcutaneous -Post Debridement Size (cm) - Length 1.0 -Post Debridement Size (cm) - Width 1.0 -Post Debridement Size (cm) - Depth 0.2 -Total Square Cm 1.00 -Wound/Ulcer Outcome Not Healed -Ulcer Cleansing Rinsed/ Irrigated with Saline -Foul Odor after Cleansing No -Bioengineered Tissue No -Bleeding Controlled with Pressure -Offloading No -Type of Offloading Surgical Shoe -Treatment Response Procedure Tolerated Well #4 Left central TMA -Time 12:01 -Correct Patient Yes -Correct Side, Site, Position Yes -Correct Procedure Yes -Procedure Performed Yes -Type of Procedure Debridement -Clinical Debridement Subcutaneous Selective -Post Debridement Size (cm) - Length 0.2 -Post Debridement Size (cm) - Width 0.2 -Post Debridement Size (cm) - Depth 0.1 -Total Square Cm 0.04 -Wound/Ulcer Outcome Not Healed -Ulcer Cleansing Rinsed/ Irrigated with Saline -Foul Odor after Cleansing No -Bioengineered Tissue No -Bleeding Controlled with Pressure -Offloading Yes -Type of Offloading Surgical Shoe -Treatment Response Procedure Tolerated Well #1 right medial heel -Time 12:06 -Correct Patient Yes -Correct Side, Site, Position Yes -Correct Procedure Yes -Procedure Performed Yes -Type of Procedure Debridement -Clinical Debridement Subcutaneous -Post Debridement Size (cm) - Length 0.9 -Post Debridement Size (cm) - Width 1.2 -Post Debridement Size (cm) - Depth 0.2 -Total Square Cm 1.08 -Wound/Ulcer Outcome Not Healed -Ulcer Cleansing Rinsed/ Irrigated with Saline -Foul Odor after Cleansing No -Bioengineered Tissue No -Bleeding Controlled with Pressure -Offloading Yes -Type of Offloading Surgical Shoe -Treatment Response Procedure Tolerated Well [See Physician Procedure note for Specifics] Pain Scale: 0-10 Numeric [Pain] -Is Patient Pain Free? Yes Musculoskeletal: No Tenderness to Palpation of Joints or Extremities, Muscle Wasting Neurological: - - Lack of epicritic sensation light touch bilateral lower extremities Psych/Mental Status: Normal Affect, Appropriate Debridement Note Post-Debridement Measurements/Treatment WC - Nurse 2 - General Ulcer CM Notes Start: 06/16/18 11:05 Freq: Status: Active Protocol: Activity Type Activity Date Activity User E-Sign Co-Sign Detail Recorded Client Recorded Date Recorded By Document 06/16/18 16:32 AN [id number] 06/16/18 16:37 AN Document 06/23/18 11:39 DL [id number] 06/23/18 11:48 DL Document 06/30/18 13:36 JF [id number] 06/30/18 13:38 JF Document 07/07/18 11:58 AN [id number] 07/07/18 12:08 AN 06/16/18 06/23/18 06/30/18 16:32 11:39 13:36 Wound Center Nurse 2 #21 R medial Plantar -Time 11:00 11:45 13:37 -Correct Patient Yes Yes Yes -Correct Side, Site, Position Yes Yes Yes -Correct Procedure Yes Yes Yes -Procedure Performed Yes Yes Yes -Type of Procedure Debridement Debridement Debridement -Clinical Debridement Subcutaneous Subcutaneous Subcutaneous -Post Debridement Size (cm) - Length 2.2 2.1 1.2 -Post Debridement Size (cm) - Width 1.3 1.3 1.1 -Post Debridement Size (cm) - Depth 0.2 0.5 0.2 -Total Square Cm 2.86 2.73 1.32 -Wound/Ulcer Outcome Not Healed Not Healed Not Healed -Ulcer Cleansing Rinsed/ Rinsed/ Rinsed/ Irrigated with Irrigated with Irrigated with Saline Saline Saline -Foul Odor after Cleansing Yes No No -Bioengineered Tissue No No No -Bleeding Controlled with Pressure Pressure Pressure -Offloading Yes Yes Yes -Type of Offloading Surgical Shoe Surgical Shoe Surgical Shoe -Treatment Response Procedure Procedure Procedure Tolerated Well Tolerated Well Tolerated Well 20-right posterior heel -Time 11:00 11:46 13:37 -Correct Patient Yes Yes Yes -Correct Side, Site, Position Yes Yes Yes -Correct Procedure Yes Yes Yes -Procedure Performed Yes Yes Yes -Type of Procedure Debridement Debridement Debridement -Clinical Debridement Subcutaneous Subcutaneous Subcutaneous -Post Debridement Size (cm) - Length 1.0 1.1 2.1 -Post Debridement Size (cm) - Width 1.8 1.7 1.3 -Post Debridement Size (cm) - Depth 0.2 0.2 0.5 -Total Square Cm 1.80 1.87 2.73 -Wound/Ulcer Outcome Not Healed Not Healed Not Healed -Ulcer Cleansing Rinsed/ Rinsed/ Rinsed/ Irrigated with Irrigated with Irrigated with Saline Saline Saline -Foul Odor after Cleansing No No No -Bioengineered Tissue No No No -Bleeding Controlled with NA Pressure Pressure -Offloading Yes Yes Yes -Type of Offloading Surgical Shoe Surgical Shoe Surgical Shoe -Treatment Response Procedure Procedure Procedure Tolerated Well Tolerated Well Tolerated Well #4 Left central TMA -Time 11:00 11:47 13:37 -Correct Patient Yes Yes Yes -Correct Side, Site, Position Yes Yes Yes -Correct Procedure Yes Yes Yes -Procedure Performed Yes Yes Yes -Type of Procedure Debridement Debridement Debridement -Clinical Debridement Subcutaneous Subcutaneous Subcutaneous -Post Debridement Size (cm) - Length 0.7 0.8 0.5 -Post Debridement Size (cm) - Width 0.3 0.3 0.3 -Post Debridement Size (cm) - Depth 0.2 0.2 0.2 -Total Square Cm 0.21 0.24 0.15 -Wound/Ulcer Outcome Not Healed Not Healed Not Healed -Ulcer Cleansing Rinsed/ Rinsed/ Rinsed/ Irrigated with Irrigated with Irrigated with Saline Saline Saline -Foul Odor after Cleansing No Yes No -Bioengineered Tissue No No No -Bleeding Controlled with Pressure Pressure Pressure -Offloading Yes Yes Yes -Type of Offloading Surgical Shoe Surgical Shoe Surgical Shoe -Treatment Response Procedure Procedure Procedure Tolerated Well Tolerated Well Tolerated Well #1 right medial heel -Time 11:00 11:47 13:38 -Correct Patient Yes Yes Yes -Correct Side, Site, Position Yes Yes Yes -Correct Procedure Yes Yes Yes -Procedure Performed Yes Yes Yes -Type of Procedure Debridement Debridement Debridement -Clinical Debridement Subcutaneous Subcutaneous Subcutaneous -Post Debridement Size (cm) - Length 1.1 1.1 1.2 -Post Debridement Size (cm) - Width 1.4 1.7 1.7 -Post Debridement Size (cm) - Depth 0.2 0.2 0.1 -Total Square Cm 1.54 1.87 2.04 -Wound/Ulcer Outcome Not Healed Not Healed Not Healed -Ulcer Cleansing Rinsed/ Rinsed/ Rinsed/ Irrigated with Irrigated with Irrigated with Saline Saline Saline -Foul Odor after Cleansing No No No -Bioengineered Tissue Yes No No -Type of bioengineered Tissue [id number] -Expiration Date 06/04/20 -Product Lot Number [id number] -Percent Used 100 -Saline Lot Number [id number] -Topical Lidocaine (%) 4 -Injectable Lidocaine (%) 4 -Bleeding Controlled with Pressure Pressure Pressure -Offloading Yes Yes Yes -Type of Offloading Surgical Shoe Surgical Shoe Surgical Shoe -Treatment Response Procedure Procedure Procedure Tolerated Well Tolerated Well Tolerated Well Pain Scale: 0-10 Numeric Is Patient Pain Free? Yes Yes Yes 07/07/18 11:58 Wound Center Nurse 2 #21 R medial Plantar -Time 12:00 -Correct Patient Yes -Correct Side, Site, Position Yes -Correct Procedure Yes -Procedure Performed Yes -Type of Procedure Debridement -Clinical Debridement Subcutaneous -Post Debridement Size (cm) - Length 0.9 -Post Debridement Size (cm) - Width 1.2 -Post Debridement Size (cm) - Depth 0.2 -Total Square Cm 1.08 -Wound/Ulcer Outcome Not Healed -Ulcer Cleansing Rinsed/ Irrigated with Saline -Foul Odor after Cleansing No -Bioengineered Tissue No -Bleeding Controlled with Pressure -Offloading Yes -Type of Offloading Surgical Shoe -Treatment Response Procedure Tolerated Well 20-right posterior heel -Time 12:06 -Correct Patient Yes -Correct Side, Site, Position Yes -Correct Procedure Yes -Procedure Performed Yes -Type of Procedure Debridement -Clinical Debridement Subcutaneous -Post Debridement Size (cm) - Length 1.0 -Post Debridement Size (cm) - Width 1.0 -Post Debridement Size (cm) - Depth 0.2 -Total Square Cm 1.00 -Wound/Ulcer Outcome Not Healed -Ulcer Cleansing Rinsed/ Irrigated with Saline -Foul Odor after Cleansing No -Bioengineered Tissue No -Bleeding Controlled with Pressure -Offloading No -Type of Offloading Surgical Shoe -Treatment Response Procedure Tolerated Well #4 Left central TMA -Time 12:01 -Correct Patient Yes -Correct Side, Site, Position Yes -Correct Procedure Yes -Procedure Performed Yes -Type of Procedure Debridement -Clinical Debridement Subcutaneous Selective -Post Debridement Size (cm) - Length 0.2 -Post Debridement Size (cm) - Width 0.2 -Post Debridement Size (cm) - Depth 0.1 -Total Square Cm 0.04 -Wound/Ulcer Outcome Not Healed -Ulcer Cleansing Rinsed/ Irrigated with Saline -Foul Odor after Cleansing No -Bioengineered Tissue No -Bleeding Controlled with Pressure -Offloading Yes -Type of Offloading Surgical Shoe -Treatment Response Procedure Tolerated Well #1 right medial heel -Time 12:06 -Correct Patient Yes -Correct Side, Site, Position Yes -Correct Procedure Yes -Procedure Performed Yes -Type of Procedure Debridement -Clinical Debridement Subcutaneous -Post Debridement Size (cm) - Length 0.9 -Post Debridement Size (cm) - Width 1.2 -Post Debridement Size (cm) - Depth 0.2 -Total Square Cm 1.08 -Wound/Ulcer Outcome Not Healed -Ulcer Cleansing Rinsed/ Irrigated with Saline -Foul Odor after Cleansing No -Bioengineered Tissue No -Type of bioengineered Tissue -Expiration Date -Product Lot Number -Percent Used -Saline Lot Number -Topical Lidocaine (%) -Injectable Lidocaine (%) -Bleeding Controlled with Pressure -Offloading Yes -Type of Offloading Surgical Shoe -Treatment Response Procedure Tolerated Well Pain Scale: 0-10 Numeric Is Patient Pain Free? Yes Wound debrided: plantar medial forefoot Laterality: Right Wound Grade/Stage: grade 1 Type of Debridement: Excisional debridement Anesthesia Used: 5% Lidocaine Gel Depth: in the subcutaneous layer Percentage of wound debrided: 100 Instrument Used: #15 blade Tissue Removed: fibrous, devitalized subcutaneous, biofilm, slough Severity: Fat Layer Exposed Amount of bleeding with debridement: Mild Bleeding Controlled with: Pressure Patient tolerated procedure well - Additional Wound Wound debrided: heel (more proximal older site) Laterality: Right Wound Grade/Stage: grade 3 Type of Debridement: Excisional debridement Anesthesia Used: 5% Lidocaine Gel Depth: in the subcutaneous layer Percentage of wound debrided: 100 Instrument Used: #15 blade Tissue Removed: fibrous, devitalized subcutaneous, biofilm, slough Severity: Fat Layer Exposed Amount of bleeding with debridement: Mild Bleeding Controlled with: Pressure Patient tolerated procedure: Patient tolerated procedure well - Additional Wound Wound debrided: heel (distal new ulcer site) Laterality: Right Wound Grade/Stage: grade 1 Type of Debridement: Excisional debridement Anesthesia Used: 5% Lidocaine Gel Depth: in the subcutaneous layer Percentage of wound debrided: 100 Instrument Used: #15 blade Tissue Removed: fibrous, devitalized subcutaneous, biofilm, slough Severity: Fat Layer Exposed Amount of bleeding with debridement: Mild Bleeding Controlled with: Pressure Patient tolerated procedure: Patient tolerated procedure well - Additional Wound Wound debrided: central TMA stump site Laterality: Left Wound Grade/Stage: grade 1 Type of Debridement: Selective debridement Anesthesia Used: 5% Lidocaine Gel Depth: Down to and including healthy tissue Percentage of wound debrided: 100 Instrument Used: #15 blade Tissue Removed: biofilm, slough Severity: Limited To Skin Breakdown Amount of bleeding with debridement: Mild Bleeding Controlled with: Pressure Patient tolerated procedure: Patient tolerated procedure well Assessment/Plan Active Problems Lymphedema (Chronic) Venous insufficiency (Chronic) Ulcer of right foot with fat layer exposed (Chronic) Skin ulcer of left foot (Chronic) Obesity (Chronic) Lower extremity edema (Chronic) Type 2 diabetes mellitus with diabetic polyneuropathy (Chronic) Malnutrition (Chronic) Assessment: Right forefoot medial ulcer - stable and infection resolved. Right heel ulcer with delayed healing -stable. Plantar posterior heel ulcer -stable. Left foot ulcer central TMA site -stable. Foot ulcer central lateral TMA site -healed. Diabetes with neuropathy. lymphedema and continued leg swelling. peripheral vacular disease. venous insufficiency Plan: I discussed his case and treatment plan. Subcutaneous excisional and selective debridement was performed to ulcer sites as noted in the nursing clinical panel. To continue daily dressing changes with Aquacel. The forefoot ulcer culture was obtained and and multi-organism growth including anae robic cocci, Klebsiella oxytoca, Enterobacter cloaca were noted his drug resistances and multiple previous reported allergies. I recommend infectious disease consultation and this was performed previously. Dr. Bartlett was in agreement with Augmentin and Bactrim course; he did complete this course. If deeper tissues exposed or the infection returns he will follow-up again with infectious disease to discuss further intervention options. His labs were reviewed including white blood cell count of 6.2, sedimentation rate of 55, C- reactive protein of 11.7, creatinine of 1.3, and albumin of 3. X-rays were reviewed without any soft tissue emphysema foreign body or osseous destruction adjacent to the ulcer site. It is noted he completed a full course of advanced wound care product, epifix,application. He is completed additional home course of Regranex. To maintain improved skin integrity by applying lac hydrin lotion to both legs daily. Continue circaid wraps bilateral legs daily; it is okay to apply tubigrip prior to application of CircAid foot wrap to better keep his wound dressings in place. To continue compression pump device daily; he is doing well with this. To proceed as previously advised with his lymphedema follow-up as advised. He is discharged from the [facility] at this time. Farrow compression garments to promote improved continued edema management at a more proximal level was approved for right lower extremity use; to use as advised. It is noted he was not approved for the left lower extremity because he did not meet qualifying criteria of open left leg current ulcer site. To continue Lasix use as advised by primary care physician. To offload left stump ulcer site with aperture pad. Proper use was verbally explained again today. To continue with portion control for weight loss and proper glycemic control and nutritional supplementation to optimize healing. His hemoglobin A1c went from 9.0 to 7.4. To continue strict offloading to all these ulcer sites. He has a donut offloading pillow and he was advised to use this. To follow-up with Dr. Peng as advised for the recommended bilateral intervention, venous. His recent vascular intervention in the left lower extremity is noted. All of his questions were answered. He understands he is still at risk for limb loss. . To follow-up at the wound care center in 1 week or call sooner if he has any questions or concerns.
== END 2018-07-13 23:59 ==
LOC: WC 11:00
PROVIDERS: Family Provider Family Medicine; PCP Family Medicine; Referring Provider Podiatrist; Visit Provider Podiatrist
DX: E11.621 Type 2 diabetes mellitus with foot ulcer (principal); E11.42 Type 2 diabetes mellitus with diabetic polyneuropathy; E11.51 Type 2 diabetes mellitus with diabetic peripheral angiopathy without gangrene; E66.9 Obesity, unspecified; Z71.3 Dietary counseling and surveillance; R60.0 Localized edema; I89.0 Lymphedema, not elsewhere classified; E11.69 Type 2 diabetes mellitus with other specified complication; M86.671 Other chronic osteomyelitis, right ankle and foot; L97.412 Non-pressure chronic ulcer of right heel and midfoot with fat layer exposed; L97.512 Non-pressure chronic ulcer of other part of right foot with fat layer exposed; I87.2 Venous insufficiency (chronic) (peripheral)
CPT/HCPCS: 11042; 87070; 87075; 87077; 87186; 87205; 87640; 97597

== ENCOUNTER 2018-08-11 11:00 | Outpatient (RCR) | payer MEDICARE, MEDICAID, SELFPAY ==
[2018-07-14 00:55] VITALS: BP 163/75; PULSE 83; RESP 20; TEMP 36.2
[2018-07-14 11:39] VITALS: BP 129/80; PULSE 62; RESP 20; TEMP 35.7; BMI 53.1
--- NOTE | 2018-07-14 14:05 | PN.PCM_ITS ---
(1) Ulcer of right lower extremity with fat layer exposed Status: Acute Current Visit: Yes Code(s): L97.912 - Non-pressure chronic ulcer of unspecified part of right lower leg with fat layer exposed (2) Chronic ulcer of left foot with fat layer exposed Status: Chronic Current Visit: Yes Code(s): L97.522 - Non-pressure chronic ulcer of other part of left foot with fat layer exposed (3) Ulcer of right foot with fat layer exposed Status: Chronic Current Visit: Yes Code(s): L97.512 - Non-pressure chronic ulcer of other part of right foot with fat layer exposed (4) Lymphedema Status: Chronic Current Visit: Yes Code(s): I89.0 - Lymphedema, not elsewhere classified (5) Venous insufficiency Status: Chronic Current Visit: Yes Code(s): I87.2 - Venous insufficiency (chronic) (peripheral) (6) Peripheral vascular disease Status: Chronic Current Visit: Yes Code(s): I73.9 - Peripheral vascular disease, unspecified (7) Obesity Status: Chronic Current Visit: Yes Code(s): E66.9 - Obesity, unspecified (8) Lower extremity edema Status: Chronic Current Visit: Yes Code(s): R60.0 - Localized edema (9) Type 2 diabetes mellitus with diabetic polyneuropathy Status: Chronic Current Visit: Yes Code(s): E11.42 - Type 2 diabetes mellitus with diabetic polyneuropathy Type of Wound Date of Service: 07/14/18 Chief Complaint: right foot pain resolved. right medial heel ulcer. Right plantar posterior heel (oldest heel ulcer). s/p left foot with superficial ulcer at transmetatarsal amputation site. lymphedema and continued leg swelling History of Wound: 63 year old male was seen for right heel ulcer with chronic osteomyelitis, right plantar heel ulcer, right forefoot ulcer, and left foot ulcers. He denies fever, chill, nausea, vomiting. He will continue dressing as advised with Aquacel. He uses the compression pumps 2-3 times a day with significant edema reduction. He completed his vascular surgery angioplasty with Dr. Peng for the left lower extremity. He has received treatment at the lymphedema clinic as well. He uses CircAid compression wraps. He has followed with Dr. Peng as advised and now has bilateral venous procedures planned in the near future. He took antibiotics as advised last week and still notices some odor coming from his right foot. He denies fever, chill, nausea, vomiting. He is using recommend aperture on the left foot as advised. He does also have a new right leg ulcer that he noticed within the last 2 days after a blister was drained. Progress of Wound: Right forefoot ulcer with signs of infection resolved, fat layer exposed. Stable right heel ulcers, fat layer exposed. left foot central lateral ulcer stable, fat layer exposed. New right leg ulcer without infection, fat layer exposed - Physical Exam Vital Signs Temp Pulse Resp BP 96.2 F L 62 20 H 129/80 H 07/14/18 11:39 07/14/18 11:39 07/14/18 11:39 07/14/18 11:39 General: Alert, Oriented x3, Cooperative Extremities: No cyanosis, Capillary Refill Less than 3 Seconds, No Calf Tenderness - Negative impact on the lateral, Diminished Peripheral Pulses, Edema - Bilateral lower extremities slight increase compared to last week Skin: Ulcer/ Wound - No purulence, erythema, streaking, odor, or infection bilateral. No interdigital maceration or deep tissue exposure. There is a new skin discontinuity to the anterior lateral right leg granulation tissue exposed. Wound Measurements and Assessment WC - Nurse 1 - General Ulcer Measurement Start: 07/14/18 11:39 Freq: Status: Active Protocol: Activity Type Activity Date Activity User E-Sign Co-Sign Detail Recorded Client Recorded Date Recorded By Document 07/14/18 11:39 DL [id number] 07/14/18 11:46 DL 07/14/18 11:39 Wound Center Nurse 1 [Ulcer Assessment] #21 R medial Plantar -Current Size (cm) - Length 1.9 -Current Size (cm) - Width 1.1 -Current Size (cm) - Depth 0.6 -Total Square Cm 2.09 -Photo Taken No -Exudate Amt Small -Exudate Type Serosanguineous -Wound Margin Distinct, Outline Attached -Granulation Amt Small (1-33%) -Granulation Quality Svensen -Necrosis Amt Large (67-100%) -Necrotic Tissue Type Adherent Slough -Structure Exposed N/A -Texture (Susy-wound Skin Appearance) Callus Scarring -Moisture (Susy-wound Skin Appearance Dry/Scaly ) -Color (Susy-wound Skin Appearance) Hemosiderin Staining Rubor -Temperature (Susy-wound Skin No Abnormality Appearance) (Pt Warm) -Tenderness on Palpation (Susy-wound No Skin Appearance) -Ulcer Cleansing Wound Cleanser -Foul Odor after Cleansing No -Anesthetic Used 4% Lidocaine Solution 20-right posterior heel -Current Size (cm) - Length 1 -Current Size (cm) - Width 1.8 -Current Size (cm) - Depth 0.3 -Total Square Cm 1.8 -Photo Taken No -Exudate Amt Small -Exudate Type Serosanguineous -Wound Margin Thickened -Granulation Amt Medium (34-66%) -Granulation Quality Svensen -Necrosis Amt Medium (34-66%) -Necrotic Tissue Type Adherent Slough -Structure Exposed N/A -Texture (Susy-wound Skin Appearance) Callus Scarring -Moisture (Susy-wound Skin Appearance Dry/Scaly ) -Color (Susy-wound Skin Appearance) Hemosiderin Staining -Temperature (Susy-wound Skin No Abnormality Appearance) (Pt Warm) -Tenderness on Palpation (Susy-wound No Skin Appearance) -Ulcer Cleansing Wound Cleanser -Foul Odor after Cleansing No -Anesthetic Used 4% Lidocaine Solution #4 Left central TMA -Current Size (cm) - Length 1.3 -Current Size (cm) - Width 0.4 -Current Size (cm) - Depth 0.2 -Total Square Cm 0.52 -Photo Taken No -Exudate Amt None Present -Wound Margin Flat & Intact -Granulation Amt Small (1-33%) -Granulation Quality Svensen -Necrosis Amt Small (1-33%) -Necrotic Tissue Type Adherent Slough -Structure Exposed N/A -Texture (Susy-wound Skin Appearance) Scarring -Moisture (Susy-wound Skin Appearance Dry/Scaly ) -Color (Susy-wound Skin Appearance) Hemosiderin Staining -Temperature (Susy-wound Skin No Abnormality Appearance) (Pt Warm) -Tenderness on Palpation (Susy-wound No Skin Appearance) -Ulcer Cleansing Wound Cleanser -Foul Odor after Cleansing No -Anesthetic Used 4% Lidocaine Solution #1 right medial heel -Current Size (cm) - Length 0.9 -Current Size (cm) - Width 1.5 -Current Size (cm) - Depth 0.2 -Total Square Cm 1.35 -Photo Taken No -Exudate Amt Small -Exudate Type Serosanguineous -Wound Margin Thickened -Granulation Amt Large (67-100%) -Granulation Quality Red -Necrosis Amt None Present (0 %) -Structure Exposed N/A -Texture (Susy-wound Skin Appearance) Callus -Moisture (Susy-wound Skin Appearance Dry/Scaly ) -Color (Susy-wound Skin Appearance) Hemosiderin Staining -Temperature (Susy-wound Skin No Abnormality Appearance) (Pt Warm) -Tenderness on Palpation (Susy-wound No Skin Appearance) -Ulcer Cleansing Wound Cleanser -Foul Odor after Cleansing No -Anesthetic Used 4% Lidocaine Solution [Edema Assessment] -Right Calf (cm) 49.1 -Right Ankle (cm) 29.1 -Left Calf (cm) 54.2 -Left Ankle (cm) 31.1 WC - Nurse 2 - General Ulcer CM Notes Start: 07/14/18 11:39 Freq: Status: Active Protocol: Activity Type Activity Date Activity User E-Sign Co-Sign Detail Recorded Client Recorded Date Recorded By Document 07/14/18 12:07 DL [id number] 07/14/18 12:10 DL 07/14/18 12:07 Wound Center Nurse 2 [Procedure/Treatment] #21 R medial Plantar -Time 12:08 -Correct Patient Yes -Correct Side, Site, Position Yes -Correct Procedure Yes -Procedure Performed Yes -Type of Procedure Debridement -Clinical Debridement Subcutaneous -Post Debridement Size (cm) - Length 2.0 -Post Debridement Size (cm) - Width 1.2 -Post Debridement Size (cm) - Depth 0.6 -Total Square Cm 2.40 -Treatment Response Procedure Tolerated Well 20-right posterior heel -Time 12:08 -Correct Patient Yes -Correct Side, Site, Position Yes -Correct Procedure Yes -Procedure Performed Yes -Type of Procedure Debridement -Clinical Debridement Subcutaneous -Post Debridement Size (cm) - Length 1.1 -Post Debridement Size (cm) - Width 1.9 -Post Debridement Size (cm) - Depth 0.3 -Total Square Cm 2.09 -Wound/Ulcer Outcome Not Healed -Treatment Response Procedure Tolerated Well #4 Left central TMA -Time 12:09 -Correct Patient Yes -Correct Side, Site, Position Yes -Correct Procedure Yes -Procedure Performed Yes -Type of Procedure Debridement -Clinical Debridement Subcutaneous -Post Debridement Size (cm) - Length 1.4 -Post Debridement Size (cm) - Width 0.5 -Post Debridement Size (cm) - Depth 0.2 -Total Square Cm 0.70 -Wound/Ulcer Outcome Not Healed -Treatment Response Procedure Tolerated Well #1 right medial heel -Time 12:09 -Correct Patient Yes -Correct Side, Site, Position Yes -Correct Procedure Yes -Procedure Performed Yes -Type of Procedure Debridement -Clinical Debridement Subcutaneous -Post Debridement Size (cm) - Length 1.0 -Post Debridement Size (cm) - Width 1.6 -Post Debridement Size (cm) - Depth 0.2 -Total Square Cm 1.60 -Wound/Ulcer Outcome Not Healed -Treatment Response Procedure Tolerated Well [See Physician Procedure note for Specifics] Musculoskeletal: No Tenderness to Palpation of Joints or Extremities, Muscle Wasting, - - Left transmetatarsal amputation. Right hallux amputation Neurological: - - Lack of epicritic sensation light touch bilateral lower extremities Psych/Mental Status: Normal Affect, Appropriate Debridement Note Post-Debridement Measurements/Treatment WC - Nurse 2 - General Ulcer CM Notes Start: 07/14/18 11:39 Freq: Status: Active Protocol: Activity Type Activity Date Activity User E-Sign Co-Sign Detail Recorded Client Recorded Date Recorded By Document 07/14/18 12:07 VIDA [id number] 07/14/18 12:10 DL 07/14/18 12:07 Wound Center Nurse 2 #21 R medial Plantar -Time 12:08 -Correct Patient Yes -Correct Side, Site, Position Yes -Correct Procedure Yes -Procedure Performed Yes -Type of Procedure Debridement -Clinical Debridement Subcutaneous -Post Debridement Size (cm) - Length 2.0 -Post Debridement Size (cm) - Width 1.2 -Post Debridement Size (cm) - Depth 0.6 -Total Square Cm 2.40 -Treatment Response Procedure Tolerated Well 20-right posterior heel -Time 12:08 -Correct Patient Yes -Correct Side, Site, Position Yes -Correct Procedure Yes -Procedure Performed Yes -Type of Procedure Debridement -Clinical Debridement Subcutaneous -Post Debridement Size (cm) - Length 1.1 -Post Debridement Size (cm) - Width 1.9 -Post Debridement Size (cm) - Depth 0.3 -Total Square Cm 2.09 -Wound/Ulcer Outcome Not Healed -Treatment Response Procedure Tolerated Well #4 Left central TMA -Time 12:09 -Correct Patient Yes -Correct Side, Site, Position Yes -Correct Procedure Yes -Procedure Performed Yes -Type of Procedure Debridement -Clinical Debridement Subcutaneous -Post Debridement Size (cm) - Length 1.4 -Post Debridement Size (cm) - Width 0.5 -Post Debridement Size (cm) - Depth 0.2 -Total Square Cm 0.70 -Wound/Ulcer Outcome Not Healed -Treatment Response Procedure Tolerated Well #1 right medial heel -Time 12:09 -Correct Patient Yes -Correct Side, Site, Position Yes -Correct Procedure Yes -Procedure Performed Yes -Type of Procedure Debridement -Clinical Debridement Subcutaneous -Post Debridement Size (cm) - Length 1.0 -Post Debridement Size (cm) - Width 1.6 -Post Debridement Size (cm) - Depth 0.2 -Total Square Cm 1.60 -Wound/Ulcer Outcome Not Healed -Treatment Response Procedure Tolerated Well Wound debrided: leg Laterality: Right - g Wound Grade/Stage: grade 1 Type of Debridement: Excisional debridement Anesthesia Used: 5% Lidocaine Gel Depth: in the subcutaneous layer Percentage of wound debrided: 100 Instrument Used: #15 blade Tissue Removed: fibrous, devitalized subcutaneous, biofilm, slough Severity: Fat Layer Exposed Amount of bleeding with debridement: Mild Bleeding Controlled with: Pressure Patient tolerated procedure well - Additional Wound Wound debrided: heel plantar posterior Laterality: Right Wound Grade/Stage: grade 3 Type of Debridement: Excisional debridement Anesthesia Used: 5% Lidocaine Gel Depth: in the subcutaneous layer Percentage of wound debrided: 100 Instrument Used: #15 blade Tissue Removed: fibrous, devitalized subcutaneous, biofilm, slough Severity: Fat Layer Exposed Amount of bleeding with debridement: Mild Bleeding Controlled with: Pressure Patient tolerated procedure: Patient tolerated procedure well - Additional Wound Wound debrided: heel plantar distal Laterality: Right Wound Grade/Stage: grade 1 Type of Debridement: Excisional debridement Anesthesia Used: 5% Lidocaine Gel Depth: in the subcutaneous layer Percentage of wound debrided: 100 Instrument Used: #15 blade Tissue Removed: fibrous, devitalized subcutaneous, biofilm, slough Severity: Fat Layer Exposed Amount of bleeding with debridement: Mild Bleeding Controlled with: Pressure Patient tolerated procedure: Patient tolerated procedure well - Additional Wound Wound debrided: sub 1st metatarsal head Laterality: Right - g Wound Grade/Stage: grade 1 Type of Debridement: Excisional debridement Anesthesia Used: 5% Lidocaine Gel Depth: in the subcutaneous layer Percentage of wound debrided: 100 Instrument Used: #15 blade Tissue Removed: fibrous, devitalized subcutaneous, biofilm, slough Severity: Fat Layer Exposed Amount of bleeding with debridement: Mild Bleeding Controlled with: Pressure Patient tolerated procedure: Patient tolerated procedure well - Additional Wound Wound debrided: distal foot (stump site) Laterality: Left Wound Grade/Stage: grade 1 Type of Debridement: Excisional debridement Anesthesia Used: 5% Lidocaine Gel Depth: in the subcutaneous layer Percentage of wound debrided: 100 Instrument Used: #15 blade Tissue Removed: fibrous, devitalized subcutaneous, biofilm, slough Severity: Fat Layer Exposed Amount of bleeding with debridement: Mild Bleeding Controlled with: Pressure Patient tolerated procedure: Patient tolerated procedure well Assessment/Plan Active Problems Lymphedema (Chronic) Venous insufficiency (Chronic) Peripheral vascular disease (Chronic) Ulcer of right foot with fat layer exposed (Chronic) Chronic ulcer of left foot with fat layer exposed (Chronic) Ulcer of right lower extremity with fat layer exposed (Acute) Obesity (Chronic) Lower extremity edema (Chronic) Type 2 diabetes mellitus with diabetic polyneuropathy (Chronic) Assessment: Right forefoot medial ulcer - stable and infection resolved. Right heel ulcer with delayed healing -stable. Plantar posterior heel ulcer -stable. Left foot ulcer central TMA site -stable. Foot ulcer central lateral TMA site - healed. Diabetes with neuropathy. lymphedema and continued leg swelling. peripheral vacular disease. venous insufficiency Plan: I discussed his case and treatment plan. Subcutaneous excisional and selective debridement was performed to ulcer sites as noted in the nursing clinical panel. To continue daily dressing changes with Aquacel. The previous forefoot ulcer culture was obtained and and multi-organism growth including anaerobic cocci, Klebsiella oxytoca, Enterobacter cloaca were noted his drug resistances and multiple previous reported allergies. I recommend previous infectious disease consultation and Dr. Bartlett was in agreement with Augmentin and Bactrim course; he did complete this course. He completed this course of antibiotics and has resolution of symptoms at this time. If deeper tissues exposed or the infection returns he will follow-up again with infectious disease to discuss further intervention options. His labs were reviewed including white blood cell count of 6.2, sedimentation rate of 55, C- reactive protein of 11.7, creatinine of 1.3, and albumin of 3. X-rays were reviewed without any soft tissue emphysema foreign body or osseous destruction adjacent to the ulcer site. It is noted he completed a full course of advanced wound care product, epifix,application. He is completed additional home course of Regranex. To maintain improved skin integrity by applying lac hydrin lotion to both legs daily. His new ulcer site is noted and he will apply the same dressing to the site as well. Continue circaid wraps bilateral legs daily; it is okay to apply tubigrip prior to application of CircAid foot wrap to better keep his wound dressings in place. To continue compression pump device daily; he is doing well with this. To proceed as previously advised with his lymphedema follow-up as advised. He is discharged from the [facility] at this time. Farrow compression garments to promote improved continued edema management at a more proximal level was approved for right lower extremity use; to use as advised. It is noted he was not approved for the left lower extremity because he did not meet qualifying criteria of open left leg current ulcer site. To continue Lasix use as advised by primary care physician. His recent bilateral lower extremity increase in edema is noted. To offload left stump ulcer site with aperture pad. Proper use was verbally explained again today. To continue with portion control for weight loss and proper glycemic control and nutritional supplementation to optimize healing. His hemoglobin A1c went from 9.0 to 7.4. To continue strict offloading to all these ulcer sites. He has a donut offloading pillow and he was advised to use this. To follow-up with Dr. Peng as advised for the recommended bilateral intervention, venous. His recent vascular intervention in the left lower extremity is noted. All of his questions were answered. He understands he is still at risk for limb loss. . To follow-up at the wound care center in 1 week or call sooner if he has any questions or concerns.
[2018-07-28 11:32] VITALS: BP 140/80; PULSE 55; RESP 20; TEMP 36.3; BMI 53.1
--- NOTE | 2018-07-28 14:25 | PN.PCM_ITS ---
(1) Ulcer of right lower extremity with fat layer exposed Status: Chronic Code(s): L97.912 - Non-pressure chronic ulcer of unspecified part of right lower leg with fat layer exposed (2) Chronic ulcer of left foot with fat layer exposed Status: Chronic Code(s): L97.522 - Non-pressure chronic ulcer of other part of left foot with fat layer exposed (3) Ulcer of right foot with fat layer exposed Status: Chronic Code(s): L97.512 - Non-pressure chronic ulcer of other part of right foot with fat layer exposed (4) Lymphedema Status: Chronic Code(s): I89.0 - Lymphedema, not elsewhere classified (5) Venous insufficiency Status: Chronic Code(s): I87.2 - Venous insufficiency (chronic) (peripheral) (6) Peripheral vascular disease Status: Chronic Code(s): I73.9 - Peripheral vascular disease, unspecified (7) Obesity Status: Chronic Code(s): E66.9 - Obesity, unspecified (8) Lower extremity edema Status: Chronic Code(s): R60.0 - Localized edema (9) Type 2 diabetes mellitus with diabetic polyneuropathy Status: Chronic Code(s): E11.42 - Type 2 diabetes mellitus with diabetic polyneuropathy Type of Wound Date of Service: 07/28/18 Chief Complaint: right foot pain resolved. right medial heel ulcer. Right plantar posterior heel (oldest heel ulcer). s/p left foot with superficial ulcer at transmetatarsal amputation site. lymphedema and continued leg swelling History of Wound: 63 year old male was seen for right heel ulcer with chronic osteomyelitis, right plantar heel ulcer, right forefoot ulcer, and left foot ulcers. He denies fever, chill, nausea, vomiting. He will continue dressing as advised with [employer]. He uses the compression pumps 2-3 times a day with significant edema reduction. He completed his vascular surgery angioplasty with Dr. Peng for the left lower extremity. He has received treatment at the lymphedema clinic as well. He uses CircAid compression wraps. He has followed with Dr. Peng as advised and now has bilateral venous procedures planned in the near future. He denies fever, chill, nausea, vomiting. He is using recommend aperture on the left foot as advised. Progress of Wound: Right forefoot ulcer with signs of infection resolved,tendon layer exposed. Stable right heel ulcers, fat layer exposed. left foot central lateral ulcer stable, skin layer exposed - Physical Exam Vital Signs Temp Pulse Resp BP 97.4 F L 55 L 20 H 140/80 H 07/28/18 11:32 07/28/18 11:32 07/28/18 11:32 07/28/18 11:32 General: Alert, Oriented x3, Cooperative HEENT: Atraumatic Extremities: No cyanosis, Capillary Refill Less than 3 Seconds, No Calf Tenderness, Diminished Peripheral Pulses, Edema Skin: Ulcer/ Wound - No purulence, erythema, streaking, odor, or infection, - - Peripheral skin is hairless and atrophic Wound Measurements and Assessment WC - Nurse 1 - General Ulcer Measurement Start: 07/14/18 11:39 Freq: Status: Active Protocol: Activity Type Activity Date Activity User E-Sign Co-Sign Detail Recorded Client Recorded Date Recorded By Document 07/28/18 11:32 DL [id number] 07/28/18 11:43 DL 07/28/18 11:32 Wound Center Nurse 1 [Ulcer Assessment] #21 R medial Plantar -Current Size (cm) - Length 1.8 -Current Size (cm) - Width 1 -Current Size (cm) - Depth 0.6 -Total Square Cm 1.8 -Photo Taken No -Exudate Amt Small -Exudate Type Serosanguineous -Wound Margin Distinct, Outline Attached -Granulation Amt Small (1-33%) -Granulation Quality Clemons -Necrosis Amt Large (67-100%) -Necrotic Tissue Type Adherent Slough -Structure Exposed N/A -Texture (Susy-wound Skin Appearance) Localized Edema Scarring -Moisture (Susy-wound Skin Appearance Maceration ) -Color (Susy-wound Skin Appearance) Hemosiderin Staining -Temperature (Susy-wound Skin No Abnormality Appearance) (Pt Warm) -Tenderness on Palpation (Susy-wound No Skin Appearance) -Ulcer Cleansing Wound Cleanser -Foul Odor after Cleansing No -Anesthetic Used 4% Lidocaine Solution 20-right posterior heel -Current Size (cm) - Length 0.7 -Current Size (cm) - Width 1.8 -Current Size (cm) - Depth 0.3 -Total Square Cm 1.26 -Photo Taken No -Exudate Amt Small -Exudate Type Serosanguineous -Wound Margin Thickened -Granulation Amt Medium (34-66%) -Granulation Quality Clemons -Necrosis Amt Medium (34-66%) -Necrotic Tissue Type Adherent Slough -Structure Exposed N/A -Texture (Susy-wound Skin Appearance) Callus Scarring -Moisture (Susy-wound Skin Appearance Dry/Scaly ) -Color (Susy-wound Skin Appearance) Hemosiderin Staining -Temperature (Susy-wound Skin No Abnormality Appearance) (Pt Warm) -Tenderness on Palpation (Susy-wound No Skin Appearance) -Ulcer Cleansing Wound Cleanser -Foul Odor after Cleansing No -Anesthetic Used 4% Lidocaine Solution #4 Left central TMA -Current Size (cm) - Length 0.1 -Current Size (cm) - Width 0.1 -Current Size (cm) - Depth 0.1 -Total Square Cm 0.01 -Photo Taken No -Exudate Amt None Present -Wound Margin Flat & Intact -Granulation Amt Small (1-33%) -Granulation Quality Clemons -Necrosis Amt None Present (0 %) -Structure Exposed N/A -Texture (Susy-wound Skin Appearance) Scarring -Moisture (Susy-wound Skin Appearance Dry/Scaly ) -Color (Susy-wound Skin Appearance) Hemosiderin Staining -Temperature (Susy-wound Skin No Abnormality Appearance) (Pt Warm) -Tenderness on Palpation (Susy-wound No Skin Appearance) -Ulcer Cleansing Wound Cleanser -Foul Odor after Cleansing No -Anesthetic Used 4% Lidocaine Solution #1 right medial heel -Current Size (cm) - Length 0.8 -Current Size (cm) - Width 0.1 -Current Size (cm) - Depth 0.3 -Total Square Cm 0.08 -Photo Taken No -Exudate Amt None Present -Wound Margin Thickened -Granulation Amt Small (1-33%) -Granulation Quality Clemons -Necrosis Amt Small (1-33%) -Necrotic Tissue Type Adherent Slough -Structure Exposed N/A -Texture (Susy-wound Skin Appearance) Callus Scarring -Moisture (Susy-wound Skin Appearance Maceration ) -Color (Susy-wound Skin Appearance) Hemosiderin Staining -Temperature (Susy-wound Skin No Abnormality Appearance) (Pt Warm) -Tenderness on Palpation (Susy-wound No Skin Appearance) -Anesthetic Used 4% Lidocaine Solution [Edema Assessment] -Right Calf (cm) 49 -Right Ankle (cm) 27.2 -Left Calf (cm) 48 -Left Ankle (cm) 28.2 WC - Nurse 2 - General Ulcer CM Notes Start: 07/14/18 11:39 Freq: Status: Active Protocol: Activity Type Activity Date Activity User E-Sign Co-Sign Detail Recorded Client Recorded Date Recorded By Document 07/28/18 12:07 AN [id number] 07/28/18 12:11 AN Document 07/28/18 12:10 AN [id number] 07/28/18 12:11 AN 07/28/18 07/28/18 12:07 12:10 Wound Center Nurse 2 [Procedure/Treatment] #21 R medial Plantar -Time 12:09 -Correct Patient Yes -Correct Side, Site, Position Yes -Correct Procedure Yes -Procedure Performed Yes -Type of Procedure Debridement -Clinical Debridement Subcutaneous -Post Debridement Size (cm) - Length 1.9 -Post Debridement Size (cm) - Width 1.1 -Post Debridement Size (cm) - Depth 0.6 -Total Square Cm 2.09 20-right posterior heel -Time 12:09 -Correct Patient Yes -Correct Side, Site, Position Yes -Correct Procedure Yes -Procedure Performed Yes -Type of Procedure Debridement -Clinical Debridement Subcutaneous -Post Debridement Size (cm) - Length 0.8 -Post Debridement Size (cm) - Width 1.9 -Post Debridement Size (cm) - Depth 0.3 -Total Square Cm 1.52 #4 Left central TMA -Time 12:10 #1 right medial heel -Time 12:10 -Correct Patient Yes -Correct Side, Site, Position Yes -Correct Procedure Yes -Procedure Performed Yes -Type of Procedure Debridement -Clinical Debridement Subcutaneous -Post Debridement Size (cm) - Length 0.9 -Post Debridement Size (cm) - Width 0.2 -Post Debridement Size (cm) - Depth 0.3 -Total Square Cm 0.18 [See Physician Procedure note for Specifics] Pain Scale: 0-10 Numeric [Pain] -Is Patient Pain Free? Yes Musculoskeletal: No Tenderness to Palpation of Joints or Extremities, Muscle Wasting, - - Compartments are soft bilateral Neurological: - - Lack of epicritic sensation light touch consistent with neuropathy Psych/Mental Status: Normal Affect, Appropriate Debridement Note Post-Debridement Measurements/Treatment WC - Nurse 2 - General Ulcer CM Notes Start: 07/14/18 11:39 Freq: Status: Active Protocol: Activity Type Activity Date Activity User E-Sign Co-Sign Detail Recorded Client Recorded Date Recorded By Document 07/14/18 12:07 DL [id number] 07/14/18 12:10 DL Document 07/28/18 12:07 AN [id number] 07/28/18 12:11 AN Document 07/28/18 12:10 AN [id number] 07/28/18 12:11 AN 07/14/18 07/28/18 07/28/18 12:07 12:07 12:10 Wound Center Nurse 2 #21 R medial Plantar -Time 12:08 12:09 -Correct Patient Yes Yes -Correct Side, Site, Position Yes Yes -Correct Procedure Yes Yes -Procedure Performed Yes Yes -Type of Procedure Debridement Debridement -Clinical Debridement Subcutaneous Subcutaneous -Post Debridement Size (cm) - Length 2.0 1.9 -Post Debridement Size (cm) - Width 1.2 1.1 -Post Debridement Size (cm) - Depth 0.6 0.6 -Total Square Cm 2.40 2.09 -Treatment Response Procedure Tolerated Well 20-right posterior heel -Time 12:08 12:09 -Correct Patient Yes Yes -Correct Side, Site, Position Yes Yes -Correct Procedure Yes Yes -Procedure Performed Yes Yes -Type of Procedure Debridement Debridement -Clinical Debridement Subcutaneous Subcutaneous -Post Debridement Size (cm) - Length 1.1 0.8 -Post Debridement Size (cm) - Width 1.9 1.9 -Post Debridement Size (cm) - Depth 0.3 0.3 -Total Square Cm 2.09 1.52 -Wound/Ulcer Outcome Not Healed -Treatment Response Procedure Tolerated Well #4 Left central TMA -Time 12: 12:10 -Correct Patient Yes -Correct Side, Site, Position Yes -Correct Procedure Yes -Procedure Performed Yes -Type of Procedure Debridement -Clinical Debridement Subcutaneous -Post Debridement Size (cm) - Length 1.4 -Post Debridement Size (cm) - Width 0.5 -Post Debridement Size (cm) - Depth 0.2 -Total Square Cm 0.70 -Wound/Ulcer Outcome Not Healed -Treatment Response Procedure Tolerated Well #1 right medial heel -Time 12:09 12:10 -Correct Patient Yes Yes -Correct Side, Site, Position Yes Yes -Correct Procedure Yes Yes -Procedure Performed Yes Yes -Type of Procedure Debridement Debridement -Clinical Debridement Subcutaneous Subcutaneous -Post Debridement Size (cm) - Length 1.0 0.9 -Post Debridement Size (cm) - Width 1.6 0.2 -Post Debridement Size (cm) - Depth 0.2 0.3 -Total Square Cm 1.60 0.18 -Wound/Ulcer Outcome Not Healed -Treatment Response Procedure Tolerated Well Pain Scale: 0-10 Numeric Is Patient Pain Free? Yes Wound debrided: heel posterior Laterality: Right Wound Grade/Stage: grade 3 Type of Debridement: Excisional debridement Anesthesia Used: 5% Lidocaine Gel Depth: in the subcutaneous layer Percentage of wound debrided: 100 Instrument Used: #15 blade Tissue Removed: fibrous, devitalized subcutaneous, biofilm, slough Severity: Fat Layer Exposed Amount of bleeding with debridement: Mild Bleeding Controlled with: Pressure Patient tolerated procedure well - Additional Wound Wound debrided: heel Laterality: Right Wound Grade/Stage: grade 1 Type of Debridement: Excisional debridement Anesthesia Used: 5% Lidocaine Gel Depth: in the subcutaneous layer Percentage of wound debrided: 100 Instrument Used: #15 blade Tissue Removed: fibrous, devitalized subcutaneous, biofilm, slough Severity: Fat Layer Exposed Amount of bleeding with debridement: Mild Bleeding Controlled with: Pressure Patient tolerated procedure: Patient tolerated procedure well - Additional Wound Wound debrided: sub 1st metatarsal head Laterality: Right Wound Grade/Stage: grade 2 Type of Debridement: Excisional debridement Anesthesia Used: 5% Lidocaine Gel Depth: in the subcutaneous layer Percentage of wound debrided: 100 Instrument Used: #15 blade Tissue Removed: fibrous, devitalized subcutaneous, biofilm, slough Severity: Fat Layer Exposed Amount of bleeding with debridement: Mild Bleeding Controlled with: Pressure Patient tolerated procedure: Patient tolerated procedure well - Additional Wound Wound debrided: distal stump (TMA) Laterality: Left Wound Grade/Stage: grade 1 Patient tolerated procedure: - - No debridement performed due to some hemorrhagic tissue only exposed Assessment/Plan Assessment: Right forefoot medial ulcer - stable and infection resolved. Right heel ulcer with delayed healing -stable. Plantar posterior heel ulcer -stable. Left foot ulcer central TMA site -stable. Foot ulcer central lateral TMA site -healed. Diabetes with neuropathy. lymphedema and continued leg swelling. peripheral vacular disease. venous insufficiency Plan: I discussed his case and treatment plan. Subcutaneous excisional and selective debridement was performed to ulcer sites as noted in the nursing clinical panel. To continue daily dressing changes with Aquacel. The [facility] forefoot ulcer culture was obtained and and multi-organism growth including anaerobic cocci, Klebsiella oxytoca, Enterobacter cloaca were noted his drug resistances and multiple previous reported allergies. I recommend previous infectious disease consultation and Dr. Bartlett was in agreement with Augmentin and Bactrim course; he did complete this course. He completed this course of antibiotics and has resolution of symptoms at this time. If deeper tissues exposed or the infection returns he will follow-up again with infectious disease to discuss further intervention options. His labs were reviewed including white blood cell count of 6.2, sedimentation rate of 55, C-reactive protein of 11.7, creatinine of 1.3, and albumin of 3. X-rays were reviewed without any soft tissue emphysema foreign body or osseous destruction adjacent to the ulcer site. No infection is noted at this time as we monitor closely now the tendon is exposed. It is noted he completed a full course of advanced wound care product, epifix,application. He is completed additional home course of Regranex. To maintain improved skin integrity by applying lac hydrin lotion to both legs daily. His new ulcer site is noted and he will apply the same dressing to the site as well. Continue circaid wraps bilateral legs daily; it is okay to apply tubigrip prior to application of CircAid foot wrap to better keep his wound dressings in place. To continue compression pump device daily; he is doing well with this. To proceed as previously advised with his lymphedema follow-up as advised. He is discharged from the [facility] at this time. Farrow compression garments to promote improved continued edema management at a more proximal level was approved for right lower extremity use; to use as advised. It is noted he was not approved for the left lower extremity because he did not meet qualifying criteria of open left leg current ulcer site. To continue Lasix use as advised by primary care physician. His recent bilateral lower extremity increase in edema is noted. To offload left stump ulcer site with aperture pad. Proper use was verbally explained again today. To continue with portion control for weight loss and proper glycemic control and nutritional supplementation to optimize healing. His hemoglobin A1c went from 9.0 to 7.4. To continue strict offloading to all these ulcer sites. He has a donut offloading pillow and he was advised to use this. To follow-up with Dr. Peng as advised for the recommended bilateral intervention, venous. His recent vascular intervention in the left lower extremity is noted. All of his questions were answered. He understands he is still at risk for limb loss. . To follow-up at the wound care center in 1 week or call sooner if he has any questions or concerns.
[2018-08-04 11:27] VITALS: BMI 53.1
--- NOTE | 2018-08-04 12:53 | PN.PCM_ITS ---
(1) Chronic ulcer of left foot with fat layer exposed Status: Resolved Current Visit: Yes Code(s): L97.522 - Non-pressure chronic ulcer of other part of left foot with fat layer exposed (2) Ulcer of right foot with fat layer exposed Status: Chronic Current Visit: Yes Code(s): L97.512 - Non-pressure chronic ulcer of other part of right foot with fat layer exposed (3) Lymphedema Status: Chronic Current Visit: Yes Code(s): I89.0 - Lymphedema, not elsewhere classified (4) Venous insufficiency Status: Chronic Current Visit: Yes Code(s): I87.2 - Venous insufficiency (chronic) (peripheral) (5) Peripheral vascular disease Status: Chronic Current Visit: Yes Code(s): I73.9 - Peripheral vascular disease, unspecified (6) Obesity Status: Chronic Current Visit: Yes Code(s): E66.9 - Obesity, unspecified (7) Lower extremity edema Status: Chronic Current Visit: Yes Code(s): R60.0 - Localized edema (8) Type 2 diabetes mellitus with diabetic polyneuropathy Status: Chronic Current Visit: Yes Code(s): E11.42 - Type 2 diabetes me llitus with diabetic polyneuropathy Type of Wound Date of Service: 08/04/18 Chief Complaint: right foot pain resolved. right medial heel ulcer. Right plantar posterior heel (oldest heel ulcer). s/p left foot with superficial ulcer at transmetatarsal amputation site. lymphedema and continued leg swelling History of Wound: 63 year old male was seen for right heel ulcer with chronic osteomyelitis, right plantar heel ulcer, right forefoot ulcer, and left foot ulcers. He denies fever, chill, nausea, vomiting. He will continue dressing as advised with Aquacel. He uses the compression pumps 2-3 times a day with significant edema reduction. He completed his vascular surgery angioplasty with Dr. Peng for the left lower extremity. He has received treatment at the lymphedema clinic as well. He uses CircAid compression wraps. He has followed with Dr. Peng as advised and now has bilateral venous procedures planned in the near future. He denies fever, chill, nausea, vomiting. He is using recommend aperture on the left foot as advised. He thinks the new right CAM Walker boot is helping tremendously Progress of Wound: Right forefoot ulcer with signs of infection resolved,tendon layer exposed. Stable right heel ulcers, fat layer exposed. 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 Peripheral skin is hairless and atrophic. Wound Measurements and Assessment WC - Nurse 1 - General Ulcer Measurement Start: 07/14/18 11:39 Freq: Status: Active Protocol: Activity Type Activity Date Activity User E-Sign Co-Sign Detail Recorded Client Recorded Date Recorded By Document 08/04/18 11:27 MD [id number] 08/04/18 11:37 MD 08/04/18 11:27 Wound Center Nurse 1 [Ulcer Assessment] #21 left plantar -Current Size (cm) - Length 2 -Current Size (cm) - Width 1.7 -Current Size (cm) - Depth 0.3 -Total Square Cm 3.4 -Date of Last Picture (Recall this 08/04/18 field) -Photo Taken Yes -Exudate Amt Medium -Exudate Type Serosanguineous -Wound Margin Thickened & Rolled Under -Granulation Amt Medium (34-66%) -Granulation Quality Pale [place] -Necrosis Amt Medium (34-66%) -Necrotic Tissue Type Adherent Slough -Texture (Susy-wound Skin Appearance) Assessed -Moisture (Susy-wound Skin Appearance Assessed ) Maceration -Color (Susy-wound Skin Appearance) Assessed -Temperature (Susy-wound Skin No Abnormality Appearance) (Pt Warm) -Tenderness on Palpation (Susy-wound No Skin Appearance) -Ulcer Cleansing Wound Cleanser -Anesthetic Used 5% Lidocaine Gel 20-right posterior heel -Current Size (cm) - Length 1.2 -Current Size (cm) - Width 1.6 -Current Size (cm) - Depth 0.2 -Total Square Cm 1.92 -Date of Last Picture (Recall this 08/04/18 field) -Photo Taken Yes -Slough/Fibrin Yes -Necrosis Amt Large (67-100%) -Texture (Susy-wound Skin Appearance) Callus -Moisture (Susy-wound Skin Appearance Assessed ) -Color (Susy-wound Skin Appearance) Assessed -Temperature (Susy-wound Skin No Abnormality Appearance) (Pt Warm) -Tenderness on Palpation (Susy-wound No Skin Appearance) -Ulcer Cleansing Wound Cleanser -Foul Odor after Cleansing No -Anesthetic Used 5% Lidocaine Gel #1 right medial heel -Current Size (cm) - Length 1 -Current Size (cm) - Width 0.9 -Current Size (cm) - Depth 0.2 -Total Square Cm 0.9 -Date of Last Picture (Recall this 08/04/18 field) -Photo Taken Yes -Exudate Amt Medium -Exudate Type Serosanguineous -Wound Margin Thickened & Rolled Under -Granulation Amt Medium (34-66%) -Granulation Quality Pale [place] -Necrosis Amt Medium (34-66%) -Necrotic Tissue Type Adherent Slough -Texture (Susy-wound Skin Appearance) Assessed -Moisture (Susy-wound Skin Appearance Assessed ) Maceration -Color (Susy-wound Skin Appearance) Assessed -Temperature (Susy-wound Skin No Abnormality Appearance) (Pt Warm) -Tenderness on Palpation (Susy-wound No Skin Appearance) -Ulcer Cleansing Wound Cleanser -Foul Odor after Cleansing No -Anesthetic Used 5% Lidocaine Gel [Edema Assessment] -Right Calf (cm) 48.6 -Right Ankle (cm) 29.2 -Left Calf (cm) 51 -Left Ankle (cm) 28.6 WC - Nurse 2 - General Ulcer CM Notes Start: 07/14/18 11:39 Freq: Status: Active Protocol: Activity Type Activity Date Activity User E-Sign Co-Sign Detail Recorded Client Recorded Date Recorded By Document 08/04/18 12:05 AN [id number] 08/04/18 12:11 AN Document 08/04/18 12:32 AN [id number] 08/04/18 12:40 AN 08/04/18 08/04/18 12:05 12:32 Wound Center Nurse 2 [Procedure/Treatment] #21 left plantar -Time 12:06 12:36 -Correct Patient Yes Yes -Correct Side, Site, Position Yes Yes -Correct Procedure Yes Yes -Procedure Performed Yes Yes -Type of Procedure Debridement Debridement -Clinical Debridement Subcutaneous Subcutaneous -Post Debridement Size (cm) - Length 2.1 -Post Debridement Size (cm) - Width 1.8 -Post Debridement Size (cm) - Depth 0.3 -Total Square Cm 3.78 -Wound/Ulcer Outcome Not Healed -Treatment Response Procedure Tolerated Well 20-right posterior heel -Time 12:10 12:37 -Correct Patient Yes Yes -Correct Side, Site, Position Yes Yes -Correct Procedure Yes Yes -Procedure Performed Yes Yes -Type of Procedure Debridement Debridement -Clinical Debridement Subcutaneous Subcutaneous -Post Debridement Size (cm) - Length 1.3 2.4 -Post Debridement Size (cm) - Width 1.7 1.4 -Post Debridement Size (cm) - Depth 0.2 0.1 -Total Square Cm 2.21 3.36 -Wound/Ulcer Outcome Not Healed -Bleeding Controlled with Pressure Pressure -Treatment Response Procedure Procedure Tolerated Well Tolerated Well #1 right medial heel -Time 12:11 12:38 -Correct Patient Yes Yes -Correct Side, Site, Position Yes Yes -Correct Procedure Yes Yes -Procedure Performed Yes Yes -Type of Procedure Debridement Debridement -Clinical Debridement Subcutaneous Subcutaneous -Post Debridement Size (cm) - Length 1.0 2.4 -Post Debridement Size (cm) - Width 0.3 1.3 -Post Debridement Size (cm) - Depth 0.9 0.1 -Total Square Cm 0.30 3.12 -Wound/Ulcer Outcome Not Healed Not Healed -Ulcer Cleansing Rinsed/ Irrigated with Saline -Bleeding Controlled with Pressure Pressure -Treatment Response Procedure Procedure Tolerated Well Tolerated Well [See Physician Procedure note for Specifics] Pain Scale: 0-10 Numeric [Pain] -Is Patient Pain Free? Yes Yes Musculoskeletal: No Tenderness to Palpation of Joints or Extremities, Muscle Wasting Neurological: - - Lack of epicritic sensation light touch consistent with neuropathy Psych/Mental Status: Normal Affect, Appropriate Debridement Note Post-Debridement Measurements/Treatment WC - Nurse 2 - General Ulcer CM Notes Start: 07/14/18 11:39 Freq: Status: Active Protocol: Activity Type Activity Date Activity User E-Sign Co-Sign Detail Recorded Client Recorded Date Recorded By Document 07/14/18 12:07 DL [id number] 07/14/18 12:10 DL Document 07/28/18 12:07 AN [id number] 07/28/18 12:11 AN Document 07/28/18 12:10 AN [id number] 07/28/18 12:11 AN Document 08/04/18 12:05 AN [id number] 08/04/18 12:11 AN Document 08/04/18 12:32 AN [id number] 08/04/18 12:40 AN 07/14/18 07/28/18 07/28/18 12:07 12:07 12:10 Wound Center Nurse 2 #21 left plantar -Time 12:08 12:09 -Correct Patient Yes Yes -Correct Side, Site, Position Yes Yes -Correct Procedure Yes Yes -Procedure Performed Yes Yes -Type of Procedure Debridement Debridement -Clinical Debridement Subcutaneous Subcutaneous -Post Debridement Size (cm) - Length 2.0 1.9 -Post Debridement Size (cm) - Width 1.2 1.1 -Post Debridement Size (cm) - Depth 0.6 0.6 -Total Square Cm 2.40 2.09 -Wound/Ulcer Outcome -Treatment Response Procedure Tolerated Well 20-right posterior heel -Time 12:08 12:09 -Correct Patient Yes Yes -Correct Side, Site, Position Yes Yes -Correct Procedure Yes Yes -Procedure Performed Yes Yes -Type of Procedure Debridement Debridement -Clinical Debridement Subcutaneous Subcutaneous -Post Debridement Size (cm) - Length 1.1 0.8 -Post Debridement Size (cm) - Width 1.9 1.9 -Post Debridement Size (cm) - Depth 0.3 0.3 -Total Square Cm 2.09 1.52 -Wound/Ulcer Outcome Not Healed -Bleeding Controlled with -Treatment Response Procedure Tolerated Well #4 Left central TMA -Time 12:09 12:10 -Correct Patient Yes -Correct Side, Site, Position Yes -Correct Procedure Yes -Procedure Performed Yes -Type of Procedure Debridement -Clinical Debridement Subcutaneous -Post Debridement Size (cm) - Length 1.4 -Post Debridement Size (cm) - Width 0.5 -Post Debridement Size (cm) - Depth 0.2 -Total Square Cm 0.70 -Wound/Ulcer Outcome Not Healed -Treatment Response Procedure Tolerated Well #1 right medial heel -Time 12:09 12:10 -Correct Patient Yes Yes -Correct Side, Site, Position Yes Yes -Correct Procedure Yes Yes -Procedure Performed Yes Yes -Type of Procedure Debridement Debridement -Clinical Debridement Subcutaneous Subcutaneous -Post Debridement Size (cm) - Length 1.0 0.9 -Post Debridement Size (cm) - Width 1.6 0.2 -Post Debridement Size (cm) - Depth 0.2 0.3 -Total Square Cm 1.60 0.18 -Wound/Ulcer Outcome Not Healed -Ulcer Cleansing -Bleeding Controlled with -Treatment Response Procedure Tolerated Well Pain Scale: 0-10 Numeric Is Patient Pain Free? Yes 08/04/18 08/04/18 12:05 12:32 Wound Center Nurse 2 #21 left plantar -Time 12:06 12:36 -Correct Patient Yes Yes -Correct Side, Site, Position Yes Yes -Correct Procedure Yes Yes -Procedure Performed Yes Yes -Type of Procedure Debridement Debridement -Clinical Debridement Subcutaneous Subcutaneous -Post Debridement Size (cm) - Length 2.1 -Post Debridement Size (cm) - Width 1.8 -Post Debridement Size (cm) - Depth 0.3 -Total Square Cm 3.78 -Wound/Ulcer Outcome Not Healed -Treatment Response Procedure Tolerated Well 20-right posterior heel -Time 12:10 12:37 -Correct Patient Yes Yes -Correct Side, Site, Position Yes Yes -Correct Procedure Yes Yes -Procedure Performed Yes Yes -Type of Procedure Debridement Debridement -Clinical Debridement Subcutaneous Subcutaneous -Post Debridement Size (cm) - Length 1.3 2.4 -Post Debridement Size (cm) - Width 1.7 1.4 -Post Debridement Size (cm) - Depth 0.2 0.1 -Total Square Cm 2.21 3.36 -Wound/Ulcer Outcome Not Healed -Bleeding Controlled with Pressure Pressure -Treatment Response Procedure Procedure Tolerated Well Tolerated Well #4 Left central TMA -Time -Correct Patient -Correct Side, Site, Position -Correct Procedure -Procedure Performed -Type of Procedure -Clinical Debridement -Post Debridement Size (cm) - Length -Post Debridement Size (cm) - Width -Post Debridement Size (cm) - Depth -Total Square Cm -Wound/Ulcer Outcome -Treatment Response #1 right medial heel -Time 12:11 12:38 -Correct Patient Yes Yes -Correct Side, Site, Position Yes Yes -Correct Procedure Yes Yes -Procedure Performed Yes Yes -Type of Procedure Debridement Debridement -Clinical Debridement Subcutaneous Subcutaneous -Post Debridement Size (cm) - Length 1.0 2.4 -Post Debridement Size (cm) - Width 0.3 1.3 -Post Debridement Size (cm) - Depth 0.9 0.1 -Total Square Cm 0.30 3.12 -Wound/Ulcer Outcome Not Healed Not Healed -Ulcer Cleansing Rinsed/ Irrigated with Saline -Bleeding Controlled with Pressure Pressure -Treatment Response Procedure Procedure Tolerated Well Tolerated Well Pain Scale: 0-10 Numeric Is Patient Pain Free? Yes Yes Wound debrided: sub 1st metarsal head Laterality: Right Wound Grade/Stage: grade 2 Type of Debridement: Excisional debridement Anesthesia Used: 5% Lidocaine Gel Depth: in the subcutaneous layer Percentage of wound debrided: 100 Instrument Used: #15 blade Tissue Removed: fibrous, devitalized subcutaneous, biofilm, slough Severity: Fat Layer Exposed Amount of bleeding with debridement: Mild Bleeding Controlled with: Pressure Patient tolerated procedure well - Additional Wound Wound debrided: posterior plantar heel Laterality: Right Wound Grade/Stage: grade 3 Type of Debridement: Excisional debridement Anesthesia Used: 5% Lidocaine Gel Depth: in the subcutaneous layer Percentage of wound debrided: 100 Instrument Used: #15 blade Tissue Removed: fibrous, devitalized subcutaneous, biofilm, slough Severity: Fat Layer Exposed Amount of bleeding with debridement: Mild Bleeding Controlled with: Pressure Patient tolerated procedure: Patient tolerated procedure well - Additional Wound Wound debrided: plantar heel Laterality: Right Wound Grade/Stage: grade 1 Type of Debridement: Excisional debridement Anesthesia Used: 5% Lidocaine Gel Depth: in the subcutaneous layer Percentage of wound debrided: 100 Instrument Used: #15 blade Tissue Removed: fibrous, devitalized subcutaneous, biofilm, slough Severity: Fat Layer Exposed Amount of bleeding with debridement: Mild Bleeding Controlled with: Pressure Patient tolerated procedure: Patient tolerated procedure well Assessment/Plan Active Problems Lymphedema (Chronic) Venous insufficiency (Chronic) Peripheral vascular disease (Chronic) Ulcer of right foot with fat layer exposed (Chronic) Ulcer of right lower extremity with fat layer exposed (Chronic) Obesity (Chronic) Lower extremity edema (Chronic) Type 2 diabetes mellitus with diabetic polyneuropathy (Chronic) Assessment: Right forefoot medial ulcer - stable and infection resolved. Right heel ulcer with delayed healing -stable. Plantar posterior heel ulcer -stable. Left foot ulcer central TMA site -stable. Foot ulcer central lateral TMA site -healed. Diabetes with neuropathy. lymphedema and continued leg swelling. peripheral vacular disease. venous insufficiency Plan: I discussed his case and treatment plan. Subcutaneous excisional and selective debridement was performed to ulcer sites as noted in the nursing clinical panel. To continue daily dressing changes with Aquacel. The previous forefoot ulcer culture was obtained and and multi-organism growth including anaerobic cocci, Klebsiella oxytoca, Enterobacter cloaca were noted his drug resistances and multiple previous reported allergies. I recommend previous infectious disease consultation and Dr. Bartlett was in agreement with Augmentin and Bactrim course; he did complete this course. He completed this course of antibiotics and has resolution of symptoms at this time. If deeper tissues exposed or the infection returns he will follow-up again with infectious disease to discuss further intervention options. His labs were reviewed including white blood cell count of 6.2, sedimentation rate of 55, C- reactive protein of 11.7, creatinine of 1.3, and albumin of 3. X-rays were reviewed without any soft tissue emphysema foreign body or osseous destruction adjacent to the ulcer site. No infection is noted at this time as we monitor closely now the tendon is exposed. It is noted he completed a full course of advanced wound care product, epifix,application. He is completed additional home course of Regranex. To maintain improved skin integrity by applying lac hydrin lotion to both legs daily. His new ulcer site is noted and he will apply the same dressing to the site as well. Continue circaid wraps bilateral legs daily; it is okay to apply tubigrip prior to application of CircAid foot wrap to better keep his wound dressings in place. To continue compression pump device daily; he is doing well with this. To proceed as previously advised with his lymphedema follow-up as advised. He is discharged from the [facility] at this time. [place]arrow compression garments to promote improved continued edema management at a more proximal level was approved for right lower extremity use; to use as advised. It is noted he was not approved for the left lower extremity because he did not meet qualifying criteria of open left leg current ulcer site. To continue Lasix use as advised by primary care physician. His recent bilateral lower extremity increase in edema is noted. To offload left stump ulcer site with aperture pad. Proper use was verbally explained again today. To continue with portion control for weight loss and proper glycemic control and nutritional supplementation to optimize healing. His hemoglobin A1c went from 9.0 to 7.4. To continue strict offloading to all these ulcer sites. He has a donut offloading pillow and he was advised to use this. To follow-up with Dr. Peng as advised for the recommended bilateral intervention, venous. His recent vascular intervention in the left lower extremity is noted. All of his questions were answered. He understands he is still at risk for limb loss. . To follow-up at the wound care center in 1 week or call sooner if he has any questions or concerns.
[2018-08-11 11:54] VITALS: BP 139/52; PULSE 48; RESP 16; TEMP 35.4; BMI 53.1
--- NOTE | 2018-08-11 16:24 | PCM.WC.PN ---
(1) Blister (nonthermal), right lesser toe(s), initial encounter Status: Acute Current Visit: Yes Code(s): S90.424A - Blister (nonthermal), right lesser toe(s), initial encounter (2) Skin ulcer of left foot including toes, limited to breakdown of skin Status: Acute Current Visit: Yes Code(s): L97.521 - Non-pressure chronic ulcer of other part of left foot limited to breakdown of skin (3) Ulcer of right foot with fat layer exposed Status: Chronic Current Visit: Yes Code(s): L97.512 - Non-pressure chronic ulcer of other part of right foot with fat layer exposed (4) Lymphedema Status: Chronic Current Visit: Yes Code(s): I89.0 - Lymphedema, not elsewhere classified (5) Venous insufficiency Status: Chronic Current Visit: Yes Code(s): I87.2 - Venous insufficiency (chronic) (peripheral) (6) Peripheral vascular disease Status: Chronic Current Visit: Yes Code(s): I73.9 - Peripheral vascular disease, unspecified (7) Obesity Status: Chronic Current Visit: Yes Code(s): E66.9 - Obesity, unspecified (8) Lower extremity edema Status: Chronic Current Visit: Yes Code(s): R60.0 - Localized edema (9) Type 2 diabetes mellitus with diabetic polyneuropathy Status: Chronic Current Visit: Yes Code(s): E11.42 - Type 2 diabetes mellitus with diabetic polyneuropathy (10) Hammer toe of right foot Status: Chronic Current Visit: Yes Code(s): M20.41 - Other hammer toe(s) (acquired), right foot Type of Wound Date of Service: 08/11/18 Chief Complaint: right foot pain resolved. right medial heel ulcer. Right plantar posterior heel (oldest heel ulcer). s/p left foot with superficial ulcer at transmetatarsal amputation site. lymphedema and continued leg swelling History of Wound: 63 year old male was seen for right heel ulcer with chronic osteomyelitis, right plantar heel ulcer, right forefoot ulcer, and left foot ulcers. He denies fever, chill, nausea, vomiting. He will continue dressing as advised with Aquacel. He uses the compression pumps 2-3 times a day with significant edema reduction. He completed his vascular surgery angioplasty with Dr. Peng for the left lower extremity. He has received treatment at the lymphedema clinic as well. He uses CircAid compression wraps. He has followed with Dr. Peng as advised and now has bilateral venous procedures planned in the near future. He denies fever, chill, nausea, vomiting. He is using recommend aperture on the left foot as advised. He thinks the new right CAM Walker boot is helping tremendously Progress of Wound: Right forefoot ulcer with signs of infection resolved,tendon layer exposed. Stable right heel ulcers, fat layer exposed. left foot central lateral ulcer stable, skin layer exposed - Physical Exam Vital Signs Temp Pulse Resp BP 95.7 F L 48 L 16 139/52 H 08/11/18 11:54 08/11/18 11:54 08/11/18 11:54 08/11/18 11:54 General: Alert, Oriented x3, Cooperative, No apparent distress Extremities: No cyanosis, Capillary Refill Less than 3 Seconds, No Calf Tenderness, Diminished Peripheral Pulses, Edema, - - Left transmetatarsal amputation Skin: Ulcer/ Wound - No purulence, erythema, streaking, odor, infection bilateral lower extremities. There is only some hemorrhagic tissue noted to the left ulcer site. The peripheral skin is hairless and atrophic bilateral. Wound Measurements and Assessment WC - Nurse 1 - General Ulcer Measurement Start: 07/14/18 11:39 Freq: Status: Active Protocol: Activity Type Activity Date Activity User E-Sign Co-Sign Detail Recorded Client Recorded Date Recorded By Document 08/11/18 11:54 [facility] [id number] 08/11/18 12:08 [facility] 08/11/18 11:54 Wound Center Nurse 1 [Ulcer Assessment] #21 rt plantar -Combined with other wound No -Current Size (cm) - Length 2 -Current Size (cm) - Width 1.1 -Current Size (cm) - Depth 0.3 -Total Square Cm 2.2 -Photo Taken No -Epithelialization None Present -Tunneling No -Undermining/Tunneling No -Circular Undermining No -Exudate Amt Small -Exudate Type Serosanguineous -Wound Margin Distinct, Outline Attached -Granulation Amt Medium (34-66%) -Granulation Quality Red -Slough/Fibrin Yes -Necrosis Amt Medium (34-66%) -Necrotic Tissue Type Adherent Slough -Texture (Susy-wound Skin Appearance) Assessed Callus Scarring -Moisture (Susy-wound Skin Appearance Assessed ) Dry/Scaly -Color (Susy-wound Skin Appearance) Assessed -Temperature (Susy-wound Skin No Abnormality Appearance) (Pt Warm) -Tenderness on Palpation (Susy-wound No Skin Appearance) -Ulcer Cleansing Wound Cleanser -Foul Odor after Cleansing No -Anesthetic Used 4% Lidocaine Solution 20-right posterior heel -Combined with other wound No -Current Size (cm) - Length 1 -Current Size (cm) - Width 1.6 -Current Size (cm) - Depth 0.2 -Total Square Cm 1.6 -Photo Taken No -Epithelialization None Present -Tunneling No -Undermining/Tunneling No -Circular Undermining No -Exudate Amt Small -Exudate Type Serosanguineous -Wound Margin Distinct, Outline Attached -Granulation Amt Large (67-100%) -Granulation Quality [place] -Slough/Fibrin No -Necrosis Amt None Present (0 %) -Texture (Susy-wound Skin Appearance) Callus Scarring -Moisture (Susy-wound Skin Appearance Assessed ) Dry/Scaly -Color (Susy-wound Skin Appearance) Assessed -Temperature (Susy-wound Skin No Abnormality Appearance) (Pt Warm) -Tenderness on Palpation (Susy-wound No Skin Appearance) -Ulcer Cleansing Wound Cleanser -Foul Odor after Cleansing No -Anesthetic Used 4% Lidocaine Solution #1 right medial heel -Combined with other wound No -Current Size (cm) - Length 0.9 -Current Size (cm) - Width 0.9 -Current Size (cm) - Depth 0.2 -Total Square Cm 0.81 -Photo Taken No -Epithelialization None Present -Tunneling No -Undermining/Tunneling No -Circular Undermining No -Exudate Amt Small -Exudate Type Serosanguineous -Wound Margin Distinct, Outline Attached -Granulation Amt Medium (34-66%) -Granulation Quality Red -Slough/Fibrin Yes -Necrosis Amt Medium (34-66%) -Necrotic Tissue Type Adherent Slough -Texture (Susy-wound Skin Appearance) Assessed Callus Scarring -Moisture (Susy-wound Skin Appearance Assessed ) -Color (Susy-wound Skin Appearance) Assessed -Temperature (Susy-wound Skin No Abnormality Appearance) (Pt Warm) -Tenderness on Palpation (Susy-wound No Skin Appearance) -Ulcer Cleansing Wound Cleanser -Foul Odor after Cleansing No -Anesthetic Used 4% Lidocaine Solution WC - Nurse 2 - General Ulcer CM Notes Start: 07/14/18 11:39 Freq: Status: Active Protocol: Activity Type Activity Date Activity User E-Sign Co-Sign Detail Recorded Client Recorded Date Recorded By Document 08/11/18 12:20 AN [id number] 08/11/18 12:25 AN 08/11/18 12:20 Wound Center Nurse 2 [Procedure/Treatment] #22 RIGHT SECOND TOE -Time 12:24 -Correct Patient Yes -Correct Side, Site, Position Yes -Correct Procedure Yes -Procedure Performed Yes -Type of Procedure Debridement -Clinical Debridement Subcutaneous -Post Debridement Size (cm) - Length 0.2 -Post Debridement Size (cm) - Width 0.2 -Post Debridement Size (cm) - Depth 0.1 -Total Square Cm 0.04 -Treatment Response Procedure Tolerated Well #21 rt plantar -Time 12:25 -Correct Patient Yes -Correct Side, Site, Position Yes -Correct Procedure Yes -Procedure Performed Yes -Type of Procedure Debridement -Clinical Debridement Subcutaneous -Post Debridement Size (cm) - Length 2.1 -Post Debridement Size (cm) - Width 1.2 -Post Debridement Size (cm) - Depth 0.3 -Total Square Cm 2.52 -Wound/Ulcer Outcome Not Healed -Treatment Response Procedure Tolerated Well 20-right posterior heel -Time 12:25 -Correct Patient Yes -Correct Side, Site, Position Yes -Correct Procedure Yes -Procedure Performed Yes -Type of Procedure Debridement -Clinical Debridement Subcutaneous -Post Debridement Size (cm) - Length 1.1 -Post Debridement Size (cm) - Width 1.7 -Post Debridement Size (cm) - Depth 0.2 -Total Square Cm 1.87 -Wound/Ulcer Outcome Not Healed -Treatment Response Procedure Tolerated Well #1 right medial heel -Time 12:24 -Correct Patient Yes -Correct Side, Site, Position Yes -Correct Procedure Yes -Procedure Performed Yes -Type of Procedure Debridement -Clinical Debridement Subcutaneous -Post Debridement Size (cm) - Length 1.0 -Post Debridement Size (cm) - Width 1.0 -Post Debridement Size (cm) - Depth 0.2 -Total Square Cm 1.00 -Wound/Ulcer Outcome Not Healed [See Physician Procedure note for Specifics] Pain Scale: 0-10 Numeric [Pain] -Is Patient Pain Free? Yes Musculoskeletal: No Tenderness to Palpation of Joints or Extremities, Muscle Wasting Neurological: - - Lack of normal epicritic sensation is consistent with neuropathy bilateral lower extremity Psych/Mental Status: Normal Affect, Appropriate Debridement Note Post-Debridement Measurements/Treatment WC - Nurse 2 - General Ulcer CM Notes Start: 07/14/18 11:39 Freq: Status: Active Protocol: Activity Type Activity Date Activity User E-Sign Co-Sign Detail Recorded Client Recorded Date Recorded By Document 07/14/18 12:07 DL [id number] 07/14/18 12:10 DL Document 07/28/18 12:07 AN [id number] 07/28/18 12:11 AN Document 07/28/18 12:10 AN [id number] 07/28/18 12:11 AN Document 08/04/18 12:05 AN [id number] 08/04/18 12:11 AN Document 08/04/18 12:32 AN [id number] 08/04/18 12:40 AN Document 08/11/18 12:20 AN [id number] 08/11/18 12:25 AN 07/14/18 07/28/18 07/28/18 12:07 12:07 12:10 Wound Center Nurse 2 #22 RIGHT SECOND TOE -Time -Correct Patient -Correct Side, Site, Position -Correct Procedure -Procedure Performed -Type of Procedure -Clinical Debridement -Post Debridement Size (cm) - Length -Post Debridement Size (cm) - Width -Post Debridement Size (cm) - Depth -Total Square Cm -Treatment Response #21 rt plantar -Time 12:08 12:09 -Correct Patient Yes Yes -Correct Side, Site, Position Yes Yes -Correct Procedure Yes Yes -Procedure Performed Yes Yes -Type of Procedure Debridement Debridement -Clinical Debridement Subcutaneous Subcutaneous -Post Debridement Size (cm) - Length 2.0 1.9 -Post Debridement Size (cm) - Width 1.2 1.1 -Post Debridement Size (cm) - Depth 0.6 0.6 -Total Square Cm 2.40 2.09 -Wound/Ulcer Outcome -Treatment Response Procedure Tolerated Well 20-right posterior heel -Time 12:08 12:09 -Correct Patient Yes Yes -Correct Side, Site, Position Yes Yes -Correct Procedure Yes Yes -Procedure Performed Yes Yes -Type of Procedure Debridement Debridement -Clinical Debridement Subcutaneous Subcutaneous -Post Debridement Size (cm) - Length 1.1 0.8 -Post Debridement Size (cm) - Width 1.9 1.9 -Post Debridement Size (cm) - Depth 0.3 0.3 -Total Square Cm 2.09 1.52 -Wound/Ulcer Outcome Not Healed -Bleeding Controlled with -Treatment Response Procedure Tolerated Well #4 Left central TMA -Time 12: 12:10 -Correct Patient Yes -Correct Side, Site, Position Yes -Correct Procedure Yes -Procedure Performed Yes -Type of Procedure Debridement -Clinical Debridement Subcutaneous -Post Debridement Size (cm) - Length 1.4 -Post Debridement Size (cm) - Width 0.5 -Post Debridement Size (cm) - Depth 0.2 -Total Square Cm 0.70 -Wound/Ulcer Outcome Not Healed -Treatment Response Procedure Tolerated Well #1 right medial heel -Time 12: 12:10 -Correct Patient Yes Yes -Correct Side, Site, Position Yes Yes -Correct Procedure Yes Yes -Procedure Performed Yes Yes -Type of Procedure Debridement Debridement -Clinical Debridement Subcutaneous Subcutaneous -Post Debridement Size (cm) - Length 1.0 0.9 -Post Debridement Size (cm) - Width 1.6 0.2 -Post Debridement Size (cm) - Depth 0.2 0.3 -Total Square Cm 1.60 0.18 -Wound/Ulcer Outcome Not Healed -Ulcer Cleansing -Bleeding Controlled with -Treatment Response Procedure Tolerated Well Pain Scale: 0-10 Numeric Is Patient Pain Free? Yes 08/04/18 08/04/18 08/11/18 12:05 12:32 12:20 Wound Center Nurse 2 #22 RIGHT SECOND TOE -Time 12:24 -Correct Patient Yes -Correct Side, Site, Position Yes -Correct Procedure Yes -Procedure Performed Yes -Type of Procedure Debridement -Clinical Debridement Subcutaneous -Post Debridement Size (cm) - Length 0.2 -Post Debridement Size (cm) - Width 0.2 -Post Debridement Size (cm) - Depth 0.1 -Total Square Cm 0.04 -Treatment Response Procedure Tolerated Well #21 rt plantar -Time 12:06 12:36 12:25 -Correct Patient Yes Yes Yes -Correct Side, Site, Position Yes Yes Yes -Correct Procedure Yes Yes Yes -Procedure Performed Yes Yes Yes -Type of Procedure Debridement Debridement Debridement -Clinical Debridement Subcutaneous Subcutaneous Subcutaneous -Post Debridement Size (cm) - Length 2.1 2.1 -Post Debridement Size (cm) - Width 1.8 1.2 -Post Debridement Size (cm) - Depth 0.3 0.3 -Total Square Cm 3.78 2.52 -Wound/Ulcer Outcome Not Healed Not Healed -Treatment Response Procedure Procedure Tolerated Well Tolerated Well 20-right posterior heel -Time 12:10 12:37 12:25 -Correct Patient Yes Yes Yes -Correct Side, Site, Position Yes Yes Yes -Correct Procedure Yes Yes Yes -Procedure Performed Yes Yes Yes -Type of Procedure Debridement Debridement Debridement -Clinical Debridement Subcutaneous Subcutaneous Subcutaneous -Post Debridement Size (cm) - Length 1.3 2.4 1.1 -Post Debridement Size (cm) - Width 1.7 1.4 1.7 -Post Debridement Size (cm) - Depth 0.2 0.1 0.2 -Total Square Cm 2.21 3.36 1.87 -Wound/Ulcer Outcome Not Healed Not Healed -Bleeding Controlled with Pressure Pressure -Treatment Response Procedure Procedure Procedure Tolerated Well Tolerated Well Tolerated Well #4 Left central TMA -Time -Correct Patient -Correct Side, Site, Position -Correct Procedure -Procedure Performed -Type of Procedure -Clinical Debridement -Post Debridement Size (cm) - Length -Post Debridement Size (cm) - Width -Post Debridement Size (cm) - Depth -Total Square Cm -Wound/Ulcer Outcome -Treatment Response #1 right medial heel -Time 12:11 12:38 12:24 -Correct Patient Yes Yes Yes -Correct Side, Site, Position Yes Yes Yes -Correct Procedure Yes Yes Yes -Procedure Performed Yes Yes Yes -Type of Procedure Debridement Debridement Debridement -Clinical Debridement Subcutaneous Subcutaneous Subcutaneous -Post Debridement Size (cm) - Length 1.0 2.4 1.0 -Post Debridement Size (cm) - Width 0.3 1.3 1.0 -Post Debridement Size (cm) - Depth 0.9 0.1 0.2 -Total Square Cm 0.30 3.12 1.00 -Wound/Ulcer Outcome Not Healed Not Healed Not Healed -Ulcer Cleansing Rinsed/ Irrigated with Saline -Bleeding Controlled with Pressure Pressure -Treatment Response Procedure Procedure Tolerated Well Tolerated Well Pain Scale: 0-10 Numeric Is Patient Pain Free? Yes Yes Yes Wound debrided: left tma stump site Laterality: Left Wound Grade/Stage: grade 1 Type of Debridement: Selective debridement Anesthesia Used: 5% Lidocaine Gel Depth: Down to and including healthy tissue Percentage of wound debrided: 100 Instrument Used: #15 blade Tissue Removed: fibrous, devitalized , biofilm, slough Severity: Fat Layer Exposed Amount of bleeding with debridement: Mild Bleeding Controlled with: Pressure Patient tolerated procedure well - Additional Wound Wound debrided: distal second toe after blister drained Laterality: Right Wound Grade/Stage: grade 1 Type of Debridement: Excisional debridement Anesthesia Used: 5% Lidocaine Gel Depth: in the subcutaneous layer Percentage of wound debrided: 100 Instrument Used: #15 blade Tissue Removed: fibrous, devitalized subcutaneous, biofilm, slough Severity: Fat Layer Exposed Amount of bleeding with debridement: Mild Bleeding Controlled with: Pressure Patient tolerated procedure: Patient tolerated procedure well - Additional Wound Wound debrided: heel (posterior ) Laterality: Right Wound Grade/Stage: grade 3 Type of Debridement: Excisional debridement Anesthesia Used: 5% Lidocaine Gel Depth: in the subcutaneous layer Percentage of wound debrided: 100 Instrument Used: #15 blade Tissue Removed: fibrous, devitalized subcutaneous, biofilm, slough Severity: Fat Layer Exposed Amount of bleeding with debridement: Mild Bleeding Controlled with: Pressure Patient tolerated procedure: Patient tolerated procedure well - Additional Wound Wound debrided: heel (distal more recent ulcer) Laterality: Right Wound Grade/Stage: grade 1 Type of Debridement: Excisional debridement Anesthesia Used: 5% Lidocaine Gel Depth: in the subcutaneous layer Percentage of wound debrided: 100 Instrument Used: #15 blade Tissue Removed: fibrous, devitalized subcutaneous, biofilm, slough Severity: Fat Layer Exposed Amount of bleeding with debridement: Mild Bleeding Controlled with: Pressure Patient tolerated procedure: Patient tolerated procedure well - Additional Wound Wound debrided: sub 1st metatarsal head Laterality: Right Wound Grade/Stage: grade 2 Type of Debridement: Excisional debridement Anesthesia Used: 5% Lidocaine Gel Depth: in the subcutaneous layer Percentage of wound debrided: 100 Instrument Used: #15 blade Tissue Removed: fibrous, devitalized subcutaneous, biofilm, slough Severity: Fat Layer Exposed Amount of bleeding with debridement: Mild Bleeding Controlled with: Pressure Patient tolerated procedure: Patient tolerated procedure well Assessment/Plan Active Problems Lymphedema (Chronic) Venous insufficiency (Chronic) Peripheral vascular disease (Chronic) Ulcer of right foot with fat layer exposed (Chronic) Chronic ulcer of left foot with fat layer exposed (Chronic) Ulcer of right lower extremity with fat layer exposed (Chronic) Hammer toe of right foot (Chronic) Blister (nonthermal), right lesser toe(s), initial encounter (Acute) Skin ulcer of left foot including toes, limited to breakdown of skin (Acute) Obesity (Chronic) Lower extremity edema (Chronic) Type 2 diabetes mellitus with diabetic polyneuropathy (Chronic) Assessment: Right forefoot medial ulcer - stable and infection resolved. Right heel ulcer with delayed healing -stable. Plantar posterior heel ulcer -stable. Left foot ulcer central TMA site -stable. Foot ulcer central lateral TMA site -healed. Diabetes with neuropathy. lymphedema and continued leg swelling. peripheral vacular disease. venous insufficiency Plan: I discussed his case and treatment plan. Subcutaneous excisional and selective debridement was performed to ulcer sites as noted in the nursing clinical panel. To continue daily dressing changes with Aquacel. The previous forefoot ulcer culture was obtained and and multi-organism growth including anaerobic cocci, Klebsiella oxytoca, Enterobacter cloaca were noted his drug resistances and multiple previous reported allergies. I recommend previous infectious disease consultation and Dr. Bartlett was in agreement with Augmentin and Bactrim course; he did complete this course. He completed this course of antibiotics and has resolution of symptoms at this time. If deeper tissues exposed or the infection returns he will follow-up again with infectious disease to discuss further intervention options. His labs were reviewed including white blood cell count of 6.2, sedimentation rate of 55, C-reactive protein of 11.7, creatinine of 1.3, and albumin of 3. X-rays were reviewed without any soft tissue emphysema foreign body or osseous destruction adjacent to the ulcer site. No infection is noted at this time as we monitor closely now the tendon is exposed. It is noted he completed a full course of advanced wound care product, epifix,application. He is completed additional home course of Regranex. To maintain improved skin integrity by applying lac hydrin lotion to both legs daily. Continue circaid wraps bilateral legs daily; it is okay to apply tubigrip prior to application of CircAid foot wrap to better keep his wound dressings in place. To continue compression pump device daily; he is doing well with this. To proceed as previously advised with his lymphedema follow-up as advised. He is discharged from the [facility] at this time. Farrow compression garments to promote improved continued edema management at a more proximal level was approved for right lower extremity use; to use as advised. It is noted he was not approved for the left lower extremity because he did not meet qualifying criteria of open left leg current ulcer site. To continue Lasix use as advised by primary care physician. His recent bilateral lower extremity increase in edema is noted. To offload left stump ulcer site with aperture pad. Proper use was verbally explained again today. To continue with portion control for weight loss and proper glycemic control and nutritional supplementation to optimize healing. His hemoglobin A1c went from 9.0 to 7.4. To continue strict offloading to all these ulcer sites. He has a donut offloading pillow and he was advised to use this. To follow-up with Dr. Peng as advised for the recommended bilateral intervention, venous. His recent vascular intervention in the left lower extremity is noted. All of his questions were answered. He understands he is still at risk for limb loss. . To follow-up at the wound care center in 1 week or call sooner if he has any questions or concerns.
== END 2018-08-13 23:59 ==
LOC: WC 11:00
PROVIDERS: Family Provider Family Medicine; PCP Family Medicine; Referring Provider Podiatrist; Visit Provider Podiatrist
DX: E11.621 Type 2 diabetes mellitus with foot ulcer (principal); E11.51 Type 2 diabetes mellitus with diabetic peripheral angiopathy without gangrene; L97.412 Non-pressure chronic ulcer of right heel and midfoot with fat layer exposed; L97.512 Non-pressure chronic ulcer of other part of right foot with fat layer exposed; E66.9 Obesity, unspecified; R60.0 Localized edema; Z71.3 Dietary counseling and surveillance; I89.0 Lymphedema, not elsewhere classified; E11.42 Type 2 diabetes mellitus with diabetic polyneuropathy; E11.69 Type 2 diabetes mellitus with other specified complication; M86.671 Other chronic osteomyelitis, right ankle and foot; L97.522 Non-pressure chronic ulcer of other part of left foot with fat layer exposed; T87.89 Other complications of amputation stump; Y83.8 Other surgical procedures as the cause of abnormal reaction of the patient, or of later complication, without mention of misadventure at the time of the procedure
CPT/HCPCS: 11042

== ENCOUNTER 2018-09-08 11:15 | Outpatient (RCR) | payer MEDICARE, MEDICAID, SELFPAY ==
[2018-08-14 00:41] VITALS: BP 139/52; PULSE 48; RESP 16; TEMP 35.4
[2018-09-01 11:30] VITALS: BP 150/73; PULSE 74; RESP 18; TEMP 36.2; BMI 53.1
--- NOTE | 2018-09-01 14:02 | PN.PCM_ITS ---
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: Chronic Current Visit: Yes Code(s): L97.512 - Non-pressure chronic ulcer of other part of right foot with fat layer exposed (2) Skin ulcer of left foot Status: Chronic Current Visit: Yes Qualifiers: Non-pressure ulcer stage: limited to breakdown of skin Qualified Code(s): L97.521 - Non-pressure chronic ulcer of other part of left foot limited to breakdown of skin Code(s): L97.529 - Non-pressure chronic ulcer of other part of left foot with unspecified severity (3) Blister of left leg Status: Acute Current Visit: Yes Qualifiers: Encounter type: initial encounter Qualified Code(s): S80.822A - Blister (nonthermal), left lower leg, initial encounter Code(s): S80.822A - Blister (nonthermal), left lower leg, initial encounter (4) Lymphedema Status: Chronic Current Visit: Yes Code(s): I89.0 - Lymphedema, not elsewhere classified (5) Venous insufficiency Status: Chronic Current Visit: Yes Code(s): I87.2 - Venous insufficiency (chronic) (peripheral) (6) Lower extremity edema Status: Chronic Current Visit: Yes Code(s): R60.0 - Localized edema (7) Type 2 diabetes mellitus with diabetic polyneuropathy Status: Chronic Current Visit: Yes Code(s): E11.42 - Type 2 diabetes mellitus with diabetic polyneuropathy Type of Wound Date of Service: 09/02/18 Chief Complaint: right foot pain resolved. right medial heel ulcer. Right plantar posterior heel (oldest heel ulcer). s/p left foot with superficial ulcer at transmetatarsal amputation site. lymphedema and continued leg swelling History of Wound: 63 year old male was seen for right heel ulcer with chronic osteomyelitis, right plantar heel ulcer, right forefoot ulcer, and left foot ulcers. He denies fever, chill, nausea, vomiting. He will continue dressing as advised with Aquacel. He uses the compression pumps 2-3 times a day with significant edema reduction. He completed his vascular surgery angioplasty with Dr. Peng for the left lower extremity. He has received treatment at the lymphedema clinic as well. He uses CircAid compression wraps. He has followed with Dr. Peng as advised. He denies fever, chill, nausea, vomiting. He is using recommend aperture on the left foot as advised most of the time. He wears a right cam walker boot. Progress of Wound: Right forefoot ulcer improving no longer tendon exposed. Stable right heel ulcers, fat layer exposed. left foot central lateral ulcer stable, skin layer exposed - Physical Exam Vital Signs Temp Pulse Resp BP 97.1 F L 74 18 150/73 H 09/01/18 11:30 09/01/18 11:30 09/01/18 11:30 09/01/18 11:30 General: Alert, Oriented x3, Cooperative, No apparent distress Extremities: No cyanosis, Capillary Refill Less than 3 Seconds, No Calf Tenderness - Negative Keara and Simmons signs bilateral, Diminished Peripheral Pulses, Edema, - - Left transmetatarsal amputation Skin: Ulcer/ Wound - No purulence, erythema, streaking, odor, or infection Wound Measurements and Assessment WC - Nurse 1 - General Ulcer Measurement Start: 08/23/18 15:15 Freq: Status: Active Protocol: Activity Type Activity Date Activity User E-Sign Co-Sign Detail Recorded Client Recorded Date Recorded By Document 09/01/18 11:36 [id number] 09/01/18 11:47 09/01/18 11:36 Wound Center Nurse 1 [Ulcer Assessment] #22 RIGHT SECOND TOE -Combined with other wound No -Current Size (cm) - Length 0.1 -Current Size (cm) - Width 0.1 -Current Size (cm) - Depth 0.1 -Total Square Cm 0.01 -Photo Taken No -Undermining/Tunneling No -Circular Undermining No -Classification - Eldridge Grading ( Grade 2 Diabetic Ulcer) -Exudate Amt None Present -Wound Margin Flat & Intact -Granulation Amt Large (67-100%) -Granulation Quality Red -Slough/Fibrin No -Necrosis Amt None Present (0 %) -Structure Exposed None/Limited to Skin Breakdown -Moisture (Susy-wound Skin Appearance Dry/Scaly ) -Color (Susy-wound Skin Appearance) Erythema -Temperature (Susy-wound Skin No Abnormality Appearance) (Pt Warm) -Tenderness on Palpation (Susy-wound No Skin Appearance) -Foul Odor after Cleansing No -Anesthetic Used 5% Lidocaine Gel #21 rt plantar -Combined with other wound No -Current Size (cm) - Length 1.8 -Current Size (cm) - Width 1.1 -Current Size (cm) - Depth 0.2 -Total Square Cm 1.98 -Photo Taken No -Epithelialization None Present -Undermining/Tunneling No -Circular Undermining No -Exudate Amt Small -Exudate Type Serosanguineous -Wound Margin Well Defined, Not Attached -Granulation Amt Medium (34-66%) -Granulation Quality Red -Slough/Fibrin Yes -Necrosis Amt Small (1-33%) -Necrotic Tissue Type Adherent Slough -Structure Exposed None/Limited to Skin Breakdown -Texture (Susy-wound Skin Appearance) Callus,Scarring -Moisture (Susy-wound Skin Appearance Maceration,Dry/ ) Scaly -Color (Susy-wound Skin Appearance) Palor -Temperature (Susy-wound Skin No Abnormality Appearance) (Pt Warm) -Tenderness on Palpation (Susy-wound No Skin Appearance) -Foul Odor after Cleansing No -Anesthetic Used 5% Lidocaine Gel 20-right posterior heel -Combined with other wound No -Current Size (cm) - Length 0.8 -Current Size (cm) - Width 1.5 -Current Size (cm) - Depth 0.3 -Total Square Cm 1.20 -Photo Taken No -Epithelialization None Present -Undermining/Tunneling Yes -Undermining/Tunneling Starts (O' 9 clock) -Undermining/Tunneling Ends (O'clock) 3 -Maximum Distance (cm) 0.4 -Exudate Amt Small -Exudate Type Serous -Wound Margin Thickened -Granulation Amt Large (67-100%) -Granulation Quality Red -Necrosis Amt None Present (0 %) -Structure Exposed None/Limited to Skin Breakdown -Texture (Susy-wound Skin Appearance) Callus,Scarring -Moisture (Susy-wound Skin Appearance Maceration,Dry/ ) Scaly -Color (Susy-wound Skin Appearance) Palor -Temperature (Ssuy-wound Skin No Abnormality Appearance) (Pt Warm) -Tenderness on Palpation (Susy-wound No Skin Appearance) -Foul Odor after Cleansing No -Anesthetic Used 5% Lidocaine Gel #1 right medial heel -Combined with other wound No -Current Size (cm) - Length 0.9 -Current Size (cm) - Width 1.4 -Current Size (cm) - Depth 0.3 -Total Square Cm 1.26 -Photo Taken No -Epithelialization None Present -Undermining/Tunneling No -Circular Undermining No -Exudate Amt Small -Exudate Type Serous -Wound Margin Distinct, Outline Attached -Granulation Amt None Present (0 %) -Granulation Quality N/A -Slough/Fibrin No -Necrosis Amt None Present (0 %) -Structure Exposed None/Limited to Skin Breakdown -Moisture (Susy-wound Skin Appearance Maceration,Dry/ ) Scaly -Color (Susy-wound Skin Appearance) Palor -Temperature (Susy-wound Skin No Abnormality Appearance) (Pt Warm) -Tenderness on Palpation (Susy-wound No Skin Appearance) -Foul Odor after Cleansing No -Anesthetic Used 5% Lidocaine Gel [Edema Assessment] -Lower Limb Edema Present Yes -Right Calf (cm) 53 -Right Ankle (cm) 29.3 -Left Calf (cm) 49.1 -Left Ankle (cm) 29.3 WC - Nurse 2 - General Ulcer CM Notes Start: 08/23/18 15:15 Freq: Status: Active Protocol: Activity Type Activity Date Activity User E-Sign Co-Sign Detail Recorded Client Recorded Date Recorded By Document 09/01/18 12:11 AN [id number] 09/01/18 12:18 AN 09/01/18 12:11 Wound Center Nurse 2 [Procedure/Treatment] #21 rt plantar -Time 12:16 -Correct Patient Yes -Correct Side, Site, Position Yes -Correct Procedure Yes -Procedure Performed Yes -Type of Procedure Debridement -Clinical Debridement Subcutaneous -Post Debridement Size (cm) - Length 1.9 -Post Debridement Size (cm) - Width 1.2 -Post Debridement Size (cm) - Depth 0.2 -Total Square Cm 2.28 -Wound/Ulcer Outcome Not Healed -Ulcer Cleansing Rinsed/ Irrigated with Saline -Foul Odor after Cleansing No -Bioengineered Tissue No -Bleeding Controlled with Pressure -Type of Offloading Camwalker -Treatment Response Procedure Tolerated Well 20-right posterior heel -Time 12:15 -Correct Patient Yes -Correct Side, Site, Position Yes -Correct Procedure Yes -Procedure Performed Yes -Type of Procedure Debridement -Clinical Debridement Subcutaneous -Post Debridement Size (cm) - Length 0.9 -Post Debridement Size (cm) - Width 1.6 -Post Debridement Size (cm) - Depth 0.3 -Total Square Cm 1.44 -Wound/Ulcer Outcome Not Healed -Ulcer Cleansing Rinsed/ Irrigated with Saline -Foul Odor after Cleansing No -Bioengineered Tissue No -Bleeding Controlled with Pressure -Offloading Yes -Type of Offloading Camwalker -Treatment Response Procedure Tolerated Well #1 right medial heel -Time 12:17 -Correct Patient Yes -Correct Side, Site, Position Yes -Correct Procedure Yes -Procedure Performed Yes -Type of Procedure Debridement -Clinical Debridement Subcutaneous -Post Debridement Size (cm) - Length 1.0 -Post Debridement Size (cm) - Width 1.8 -Post Debridement Size (cm) - Depth 0.3 -Total Square Cm 1.80 -Wound/Ulcer Outcome Not Healed -Ulcer Cleansing Rinsed/ Irrigated with Saline -Foul Odor after Cleansing No -Bioengineered Tissue No -Bleeding Controlled with Pressure -Offloading Yes -Type of Offloading Camwalker -Treatment Response Procedure Tolerated Well [See Physician Procedure note for Specifics] Pain Scale: 0-10 Numeric [Pain] -Is Patient Pain Free? Yes Musculoskeletal: No Tenderness to Palpation of Joints or Extremities, Muscle Wasting Neurological: - - Lack of epicritic sensation light touch consistent with neuropathy bilateral Psych/Mental Status: Normal Affect, Appropriate Debridement Note Post-Debridement Measurements/Treatment WC - Nurse 2 - General Ulcer CM Notes Start: 08/23/18 15:15 Freq: Status: Active Protocol: Activity Type Activity Date Activity User E-Sign Co-Sign Detail Recorded Client Recorded Date Recorded By Document 09/01/18 12:11 AN [id number] 09/01/18 12:18 AN 09/01/18 12:11 Wound Center Nurse 2 #21 rt plantar -Time 12:16 -Correct Patient Yes -Correct Side, Site, Position Yes -Correct Procedure Yes -Procedure Performed Yes -Type of Procedure Debridement -Clinical Debridement Subcutaneous -Post Debridement Size (cm) - Length 1.9 -Post Debridement Size (cm) - Width 1.2 -Post Debridement Size (cm) - Depth 0.2 -Total Square Cm 2.28 -Wound/Ulcer Outcome Not Healed -Ulcer Cleansing Rinsed/ Irrigated with Saline -Foul Odor after Cleansing No -Bioengineered Tissue No -Bleeding Controlled with Pressure -Type of Offloading Camwalker -Treatment Response Procedure Tolerated Well 20-right posterior heel -Time 12:15 -Correct Patient Yes -Correct Side, Site, Position Yes -Correct Procedure Yes -Procedure Performed Yes -Type of Procedure Debridement -Clinical Debridement Subcutaneous -Post Debridement Size (cm) - Length 0.9 -Post Debridement Size (cm) - Width 1.6 -Post Debridement Size (cm) - Depth 0.3 -Total Square Cm 1.44 -Wound/Ulcer Outcome Not Healed -Ulcer Cleansing Rinsed/ Irrigated with Saline -Foul Odor after Cleansing No -Bioengineered Tissue No -Bleeding Controlled with Pressure -Offloading Yes -Type of Offloading Camwalker -Treatment Response Procedure Tolerated Well #1 right medial heel -Time 12:17 -Correct Patient Yes -Correct Side, Site, Position Yes -Correct Procedure Yes -Procedure Performed Yes -Type of Procedure Debridement -Clinical Debridement Subcutaneous -Post Debridement Size (cm) - Length 1.0 -Post Debridement Size (cm) - Width 1.8 -Post Debridement Size (cm) - Depth 0.3 -Total Square Cm 1.80 -Wound/Ulcer Outcome Not Healed -Ulcer Cleansing Rinsed/ Irrigated with Saline -Foul Odor after Cleansing No -Bioengineered Tissue No -Bleeding Controlled with Pressure -Offloading Yes -Type of Offloading Camwalker -Treatment Response Procedure Tolerated Well Pain Scale: 0-10 Numeric Is Patient Pain Free? Yes Wound debrided: sub 1st metatarsal head Laterality: Right Wound Grade/Stage: grade 2 Type of Debridement: Excisional debridement Anesthesia Used: 5% Lidocaine Gel Depth: in the subcutaneous layer Percentage of wound debrided: 100 Instrument Used: #15 blade Tissue Removed: fibrous, devitalized subcutaneous, biofilm, slough Severity: Fat Layer Exposed Amount of bleeding with debridement: Mild Bleeding Controlled with: Pressure Patient tolerated procedure well - Additional Wound Wound debrided: heel (posterior) Laterality: Right Wound Grade/Stage: grade 3 Type of Debridement: Excisional debridement Anesthesia Used: 5% Lidocaine Gel Depth: in the subcutaneous layer Percentage of wound debrided: 100 Instrument Used: #15 blade Tissue Removed: fibrous, devitalized subcutaneous, biofilm, slough Severity: Fat Layer Exposed Amount of bleeding with debridement: Mild Bleeding Controlled with: Pressure Patient tolerated procedure: Patient tolerated procedure well - Additional Wound Wound debrided: heel (anterior) Laterality: Right Wound Grade/Stage: grade 1 Type of Debridement: Excisional debridement Anesthesia Used: 5% Lidocaine Gel Depth: in the subcutaneous layer Percentage of wound debrided: 100 Instrument Used: #15 blade Tissue Removed: fibrous, devitalized subcutaneous, biofilm, slough Severity: Fat Layer Exposed Amount of bleeding with debridement: Mild Bleeding Controlled with: Pressure Patient tolerated procedure: Patient tolerated procedure well - Additional Wound Wound debrided: central stump site Laterality: Left Type of Debridement: Selective debridement Anesthesia Used: 5% Lidocaine Gel Depth: Down to and including healthy tissue Percentage of wound debrided: 100 Instrument Used: #15 blade Tissue Removed: fibrous, devitalized subcutaneous, biofilm, slough Severity: Fat Layer Exposed Amount of bleeding with debridement: Mild Bleeding Controlled with: Pressure Patient tolerated procedure: Patient tolerated procedure well Assessment/Plan Active Problems Lymphedema (Chronic) Venous insufficiency (Chronic) Ulcer of right foot with fat layer exposed (Chronic) Skin ulcer of left foot (Chronic) Blister of left leg (Acute) Lower extremity edema (Chronic) Type 2 diabetes mellitus with diabetic polyneuropathy (Chronic) Assessment: Right forefoot medial ulcer - stable and infection resolved. Right heel ulcer with delayed healing -stable. Plantar posterior heel ulcer -stable. Foot ulcer central lateral TMA site , skin layer exposed only. Diabetes with neuropathy. lymphedema and continued leg swelling. peripheral vacular disease. venous insufficiency Plan: I discussed his case and treatment plan. Subcutaneous excisional and selective debridement was performed to ulcer sites as noted in the nursing clini valentina panel. To continue daily dressing changes with Aquacel. The previous forefoot ulcer culture was obtained and and multi-organism growth including anaerobic cocci, Klebsiella oxytoca, Enterobacter cloaca were noted his drug resistances and multiple previous reported allergies. I recommend previous infectious disease consultation and Dr. Bartlett was in agreement with Augmentin and Bactrim course; he did complete this course. He completed this course of antibiotics and has resolution of symptoms at this time. There is no longer exposed tendon or capsule. His labs were reviewed including white blood cell count of 6.2, sedimentation rate of 55, C-reactive protein of 11.7, creatinine of 1.3, and albumin of 3. X-rays were reviewed without any soft tissue emphysema foreign body or osseous destruction adjacent to the ulcer site. No infection is noted at this time as we monitor closely now the tendon is exposed. It is noted he completed a full course of advanced wound care pr oduct, epifix,application. He is completed additional home course of Regranex. To maintain improved skin integrity by applying lac hydrin lotion to both legs daily. Continue circaid wraps bilateral legs daily; it is okay to apply tubigrip prior to application of CircAid foot wrap to better keep his wound dressings in place. To continue compression pump device daily; he is doing well with this. To proceed as previously advised with his lymphedema follow-up as advised. He is discharged from the [facility] at this time. Farrow compression garments to promote improved continued edema management at a more proximal level was approved for right lower extremity use; to use as advised. It is noted he was not approved for the left lower extremity because he did not meet qualifying criteria of open left leg current ulcer site. To continue Lasix use as advised by primary care physician. His recent bilateral lower extremity increase in edema is noted. To offload left stump ulcer site with aperture pad. Proper use was verbally explained again today. To continue with portion control for weight loss and proper glycemic control and nutritional supplementation to optimize healing. His hemoglobin A1c went from 9.0 to 7.4. To continue strict offloading to all these ulcer sites. He has a donut offloading pillow and he was advised to use this. To follow-up with Dr. Peng as advised for the recommended bilateral intervention, venous. His recent vascular intervention in the left lower extremity is noted. All of his questions were answered. He understands he is still at risk for limb loss. . To follow-up at the wound care center in 1 week or call sooner if he has any questions or concerns.
[2018-09-08 11:05] VITALS: BP 155/110; PULSE 63; RESP 20; TEMP 36.3; BMI 53.1
--- NOTE | 2018-09-08 13:18 | PCM.WC.PN ---
(1) Ulcer of left lower extremity with fat layer exposed Status: Acute Current Visit: Yes Code(s): L97.922 - Non-pressure chronic ulcer of unspecified part of left lower leg with fat layer exposed (2) Ulcer of right foot with fat layer exposed Status: Chronic Current Visit: Yes Code(s): L97.512 - Non-pressure chronic ulcer of other part of right foot with fat layer exposed (3) Skin ulcer of left foot Status: Chronic Current Visit: Yes Qualifiers: Non-pressure ulcer stage: limited to breakdown of skin Qualified Code(s): L97.521 - Non-pressure chronic ulcer of other part of left foot limited to breakdown of skin Code(s): L97.529 - Non-pressure chronic ulcer of other part of left foot with unspecified severity (4) Lymphedema Status: Chronic Current Visit: Yes Code(s): I89.0 - Lymphedema, not elsewhere classified (5) Venous insufficiency Status: Chronic Current Visit: Yes Code(s): I87.2 - Venous insufficiency (chronic) (peripheral) (6) Lower extremity edema Status: Chronic Current Visit: Yes Code(s): R60.0 - Localized edema (7) Type 2 diabetes mellitus with diabetic polyneuropathy Status: Chronic Current Visit: Yes Code(s): E11.42 - Type 2 diabetes mellitus with diabetic polyneuropathy Type of Wound Date of Service: 09/08/18 Chief Complaint: Multiple ulcers and leg swelling History of Wound: 63 year old male was seen for right heel ulcer with chronic osteomyelitis, right plantar heel ulcer, right forefoot ulcer, and left foot ulcers. He denies fever, chill, nausea, vomiting. He will continue dressing as advised with Aquacel. He uses the compression pumps 2-3 times a day with significant edema reduction. He completed his vascular surgery angioplasty with Dr. Peng for the left lower extremity. He has received treatment at the lymphedema clinic as well. He uses CircAid compression wraps. He has followed with Dr. Peng as advised. He denies fever, chill, nausea, vomiting. He is using recommend aperture on the left foot as advised most of the time. He wears a right cam walker boot.his blister drained and he now has an ulcer to the left bernstein. Progress of Wound: Improving to all sites. New left leg ulcer at previous blister site - Physical Exam Vital Signs Temp Pulse Resp BP 97.3 F L 63 20 H 155/110 H 09/08/18 11:05 09/08/18 11:05 09/08/18 11:05 09/08/18 11:05 General: Alert, Oriented x3, Cooperative, No apparent distress HEENT: Atraumatic Extremities: No cyanosis, Capillary Refill Less than 3 Seconds, No Calf Tenderness - Negative Keara and Simmons sign bilateral, Diminished Peripheral Pulses, Edema - Decreased compared to last week; compressive CircAid wraps utilized Skin: Ulcer/ Wound - No purulence, erythema hamstring, odor, infection. New skin discontinuity left leg at previous blister site without infection Wound Measurements and Assessment WC - Nurse 1 - General Ulcer Measurement Start: 08/23/18 15:15 Freq: Status: Active Protocol: Activity Type Activity Date Activity User E-Sign Co-Sign Detail Recorded Client Recorded Date Recorded By Document 09/08/18 11:05 [id number] 09/08/18 11:30 CS 09/08/18 11:05 Wound Center Nurse 1 [Ulcer Assessment] #24 left central TMA -Combined with other wound No -Current Size (cm) - Length 3.4 -Current Size (cm) - Width 1.6 -Current Size (cm) - Depth 0.2 -Total Square Cm 5.44 -Date of Last Picture (Recall this 09/08/18 field) -Photo Taken Yes -Epithelialization None Present -Tunneling No -Undermining/Tunneling No -Circular Undermining No -Exudate Amt Small -Exudate Type Serosanguineous -Wound Margin Distinct, Outline Attached -Granulation Amt Medium (34-66%) -Granulation Quality Pale,[place] -Slough/Fibrin Yes -Necrosis Amt None Present (0 %) -Necrotic Tissue Type Adherent Slough -Structure Exposed None/Limited to Skin Breakdown -Texture (Susy-wound Skin Appearance) Assessed,Callus -Moisture (Susy-wound Skin Appearance Maceration ) -Color (Susy-wound Skin Appearance) No Abnormality, Assessed -Temperature (Susy-wound Skin No Abnormality Appearance) (Pt Warm) -Tenderness on Palpation (Susy-wound No Skin Appearance) -Ulcer Cleansing Rinsed/ Irrigated with Saline -Foul Odor after Cleansing No -Anesthetic Used 4% Lidocaine Solution #23 left bernstein -Combined with other wound No -Current Size (cm) - Length 3.2 -Current Size (cm) - Width 2.2 -Current Size (cm) - Depth 0.1 -Total Square Cm 7.04 -Date of Last Picture (Recall this 09/08/18 field) -Photo Taken Yes -Epithelialization None Present -Tunneling No -Undermining/Tunneling No -Circular Undermining No -Exudate Amt Large -Exudate Type Serous -Wound Margin Distinct, Outline Attached -Granulation Amt Large (67-100%) -Granulation Quality Red -Necrosis Amt None Present (0 %) -Necrotic Tissue Type Adherent Slough -Structure Exposed None/Limited to Skin Breakdown -Texture (Susy-wound Skin Appearance) No Abnormality, Assessed -Moisture (Susy-wound Skin Appearance Maceration ) -Color (Susy-wound Skin Appearance) Hemosiderin Staining -Temperature (Susy-wound Skin No Abnormality Appearance) (Pt Warm) -Tenderness on Palpation (Susy-wound No Skin Appearance) -Ulcer Cleansing Rinsed/ Irrigated with Saline -Foul Odor after Cleansing No -Anesthetic Used 4% Lidocaine Solution #21 rt plantar -Combined with other wound No -Current Size (cm) - Length 1.9 -Current Size (cm) - Width 1.4 -Current Size (cm) - Depth 0.2 -Total Square Cm 2.66 -Photo Taken No -Epithelialization None Present -Tunneling No -Undermining/Tunneling No -Circular Undermining No -Wound Margin Thickened -Granulation Amt Small (1-33%) -Granulation Quality Red -Slough/Fibrin Yes -Necrosis Amt Small (1-33%) -Necrotic Tissue Type Adherent Slough -Structure Exposed None/Limited to Skin Breakdown -Texture (Susy-wound Skin Appearance) Callus -Moisture (Susy-wound Skin Appearance No Abnormality, ) Assessed -Color (Susy-wound Skin Appearance) No Abnormality, Assessed -Temperature (Susy-wound Skin No Abnormality Appearance) (Pt Warm) -Tenderness on Palpation (Susy-wound No Skin Appearance) -Ulcer Cleansing Rinsed/ Irrigated with Saline -Foul Odor after Cleansing No -Anesthetic Used 4% Lidocaine Solution 20-right posterior heel -Combined with other wound No -Current Size (cm) - Length 1.3 -Current Size (cm) - Width 2.5 -Current Size (cm) - Depth 0.4 -Total Square Cm 3.25 -Photo Taken No -Epithelialization None Present -Tunneling No -Undermining/Tunneling No -Circular Undermining No -Exudate Amt Small -Exudate Type Serosanguineous -Wound Margin Thickened -Granulation Amt Small (1-33%) -Granulation Quality Red -Slough/Fibrin Yes -Necrosis Amt None Present (0 %) -Necrotic Tissue Type Adherent Slough -Structure Exposed None/Limited to Skin Breakdown -Texture (Susy-wound Skin Appearance) Callus -Moisture (Susy-wound Skin Appearance No Abnormality, ) Assessed -Color (Susy-wound Skin Appearance) No Abnormality, Assessed -Temperature (Susy-wound Skin No Abnormality Appearance) (Pt Warm) -Tenderness on Palpation (Susy-wound No Skin Appearance) -Ulcer Cleansing Rinsed/ Irrigated with Saline -Foul Odor after Cleansing No -Anesthetic Used 4% Lidocaine Solution #1 right medial heel -Combined with other wound No -Current Size (cm) - Length 1 -Current Size (cm) - Width 1.7 -Current Size (cm) - Depth 0.3 -Total Square Cm 1.7 -Photo Taken No -Epithelialization None Present -Tunneling No -Undermining/Tunneling No -Circular Undermining No -Exudate Amt Small -Exudate Type Serosanguineous -Wound Margin Distinct, Outline Attached -Granulation Amt Small (1-33%) -Granulation Quality Red -Slough/Fibrin Yes -Necrosis Amt None Present (0 %) -Necrotic Tissue Type Adherent Slough -Structure Exposed None/Limited to Skin Breakdown -Texture (Susy-wound Skin Appearance) Callus -Moisture (Susy-wound Skin Appearance No Abnormality, ) Assessed -Color (Susy-wound Skin Appearance) No Abnormality, Assessed -Temperature (Susy-wound Skin No Abnormality Appearance) (Pt Warm) -Tenderness on Palpation (Susy-wound No Skin Appearance) -Ulcer Cleansing Rinsed/ Irrigated with Saline -Foul Odor after Cleansing No -Anesthetic Used 4% Lidocaine Solution [Edema Assessment] -Lower Limb Edema Present Yes -Right Calf (cm) 48.2 -Right Ankle (cm) 30.5 -Left Calf (cm) 45 -Left Ankle (cm) 30 WC - Nurse 2 - General Ulcer CM Notes Start: 08/23/18 15:15 Freq: Status: Active Protocol: Activity Type Activity Date Activity User E-Sign Co-Sign Detail Recorded Client Recorded Date Recorded By Document 09/08/18 11:43 NORRIS [id number] 09/08/18 11:46 NORRIS 09/08/18 11:43 Wound Center Nurse 2 [Procedure/Treatment] #24 left central TMA -Time 11:43 -Correct Patient Yes -Correct Side, Site, Position Yes -Correct Procedure Yes -Procedure Performed Yes -Type of Procedure Debridement -Clinical Debridement Subcutaneous -Post Debridement Size (cm) - Length 3.5 -Post Debridement Size (cm) - Width 1.6 -Post Debridement Size (cm) - Depth 0.2 -Total Square Cm 5.60 -Wound/Ulcer Outcome Not Healed -Ulcer Cleansing Rinsed/ Irrigated with Saline -Foul Odor after Cleansing No -Bioengineered Tissue No -Bleeding Controlled with Pressure -Offloading No -Treatment Response Procedure Tolerated Well #23 left bernstein -Time 11:44 -Correct Patient Yes -Correct Side, Site, Position Yes -Correct Procedure Yes -Procedure Performed Yes -Type of Procedure Debridement -Clinical Debridement Subcutaneous -Post Debridement Size (cm) - Length 3.3 -Post Debridement Size (cm) - Width 2.3 -Post Debridement Size (cm) - Depth 0.1 -Total Square Cm 7.59 -Wound/Ulcer Outcome Not Healed -Ulcer Cleansing Rinsed/ Irrigated with Saline -Foul Odor after Cleansing No -Bioengineered Tissue No -Bleeding Controlled with Pressure -Offloading Yes -Type of Offloading Surgical Shoe -Treatment Response Procedure Tolerated Well #21 rt plantar -Time 11:45 -Correct Patient Yes -Correct Side, Site, Position Yes -Correct Procedure Yes -Procedure Performed Yes -Type of Procedure Debridement -Clinical Debridement Subcutaneous -Post Debridement Size (cm) - Length 2.0 -Post Debridement Size (cm) - Width 1.6 -Post Debridement Size (cm) - Depth 0.2 -Total Square Cm 3.20 -Wound/Ulcer Outcome Not Healed -Ulcer Cleansing Rinsed/ Irrigated with Saline -Foul Odor after Cleansing No -Bioengineered Tissue No -Bleeding Controlled with Pressure -Offloading No -Treatment Response Procedure Tolerated Well 20-right posterior heel -Time 11:45 -Correct Patient Yes -Correct Side, Site, Position Yes -Correct Procedure Yes -Procedure Performed Yes -Type of Procedure Debridement -Clinical Debridement Subcutaneous -Post Debridement Size (cm) - Length 1.3 -Post Debridement Size (cm) - Width 2.6 -Post Debridement Size (cm) - Depth 0.4 -Total Square Cm 3.38 -Wound/Ulcer Outcome Not Healed -Ulcer Cleansing Rinsed/ Irrigated with Saline -Foul Odor after Cleansing No -Bioengineered Tissue No -Bleeding Controlled with Pressure -Offloading Yes -Type of Offloading Surgical Shoe -Treatment Response Procedure Tolerated Well #1 right medial heel -Time 11:46 -Correct Patient Yes -Correct Side, Site, Position Yes -Correct Procedure Yes -Procedure Performed Yes -Type of Procedure Debridement -Clinical Debridement Subcutaneous -Post Debridement Size (cm) - Length 1.1 -Post Debridement Size (cm) - Width 1.8 -Post Debridement Size (cm) - Depth 0.3 -Total Square Cm 1.98 -Wound/Ulcer Outcome Not Healed -Ulcer Cleansing Rinsed/ Irrigated with Saline -Foul Odor after Cleansing No -Bioengineered Tissue No -Bleeding Controlled with Pressure -Offloading Yes -Type of Offloading Surgical Shoe -Treatment Response Procedure Tolerated Well [See Physician Procedure note for Specifics] Pain Scale: 0-10 Numeric [Pain] -Is Patient Pain Free? Yes Musculoskeletal: No Tenderness to Palpation of Joints or Extremities, Muscle Wasting Neurological: - - lack of epicritic sensation via light touch consistent with neuropathy Psych/Mental Status: Normal Affect, Appropriate Debridement Note Post-Debridement Measurements/Treatment WC - Nurse 2 - General Ulcer CM Notes Start: 08/23/18 15:15 Freq: Status: Active Protocol: Activity Type Activity Date Activity User E-Sign Co-Sign Detail Recorded Client Recorded Date Recorded By Document 09/01/18 12:11 AN [id number] 09/01/18 12:18 AN Document 09/08/18 11:43 JF [id number] 09/08/18 11:46 JF 09/01/18 09/08/18 12:11 11:43 Wound Center Nurse 2 #24 left central TMA -Time 11:43 -Correct Patient Yes -Correct Side, Site, Position Yes -Correct Procedure Yes -Procedure Performed Yes -Type of Procedure Debridement -Clinical Debridement Subcutaneous -Post Debridement Size (cm) - Length 3.5 -Post Debridement Size (cm) - Width 1.6 -Post Debridement Size (cm) - Depth 0.2 -Total Square Cm 5.60 -Wound/Ulcer Outcome Not Healed -Ulcer Cleansing Rinsed/ Irrigated with Saline -Foul Odor after Cleansing No -Bioengineered Tissue No -Bleeding Controlled with Pressure -Offloading No -Treatment Response Procedure Tolerated Well #23 left bernstein -Time 11:44 -Correct Patient Yes -Correct Side, Site, Position Yes -Correct Procedure Yes -Procedure Performed Yes -Type of Procedure Debridement -Clinical Debridement Subcutaneous -Post Debridement Size (cm) - Length 3.3 -Post Debridement Size (cm) - Width 2.3 -Post Debridement Size (cm) - Depth 0.1 -Total Square Cm 7.59 -Wound/Ulcer Outcome Not Healed -Ulcer Cleansing Rinsed/ Irrigated with Saline -Foul Odor after Cleansing No -Bioengineered Tissue No -Bleeding Controlled with Pressure -Offloading Yes -Type of Offloading Surgical Shoe -Treatment Response Procedure Tolerated Well #21 rt plantar -Time 12:16 11:45 -Correct Patient Yes Yes -Correct Side, Site, Position Yes Yes -Correct Procedure Yes Yes -Procedure Performed Yes Yes -Type of Procedure Debridement Debridement -Clinical Debridement Subcutaneous Subcutaneous -Post Debridement Size (cm) - Length 1.9 2.0 -Post Debridement Size (cm) - Width 1.2 1.6 -Post Debridement Size (cm) - Depth 0.2 0.2 -Total Square Cm 2.28 3.20 -Wound/Ulcer Outcome Not Healed Not Healed -Ulcer Cleansing Rinsed/ Rinsed/ Irrigated with Irrigated with Saline Saline -Foul Odor after Cleansing No No -Bioengineered Tissue No No -Bleeding Controlled with Pressure Pressure -Offloading No -Type of Offloading Camwalker -Treatment Response Procedure Procedure Tolerated Well Tolerated Well 20-right posterior heel -Time 12:15 11:45 -Correct Patient Yes Yes -Correct Side, Site, Position Yes Yes -Correct Procedure Yes Yes -Procedure Performed Yes Yes -Type of Procedure Debridement Debridement -Clinical Debridement Subcutaneous Subcutaneous -Post Debridement Size (cm) - Length 0.9 1.3 -Post Debridement Size (cm) - Width 1.6 2.6 -Post Debridement Size (cm) - Depth 0.3 0.4 -Total Square Cm 1.44 3.38 -Wound/Ulcer Outcome Not Healed Not Healed -Ulcer Cleansing Rinsed/ Rinsed/ Irrigated with Irrigated with Saline Saline -Foul Odor after Cleansing No No -Bioengineered Tissue No No -Bleeding Controlled with Pressure Pressure -Offloading Yes Yes -Type of Offloading Camwalker Surgical Shoe -Treatment Response Procedure Procedure Tolerated Well Tolerated Well #1 right medial heel -Time 12:17 11:46 -Correct Patient Yes Yes -Correct Side, Site, Position Yes Yes -Correct Procedure Yes Yes -Procedure Performed Yes Yes -Type of Procedure Debridement Debridement -Clinical Debridement Subcutaneous Subcutaneous -Post Debridement Size (cm) - Length 1.0 1.1 -Post Debridement Size (cm) - Width 1.8 1.8 -Post Debridement Size (cm) - Depth 0.3 0.3 -Total Square Cm 1.80 1.98 -Wound/Ulcer Outcome Not Healed Not Healed -Ulcer Cleansing Rinsed/ Rinsed/ Irrigated with Irrigated with Saline Saline -Foul Odor after Cleansing No No -Bioengineered Tissue No No -Bleeding Controlled with Pressure Pressure -Offloading Yes Yes -Type of Offloading Camwalker Surgical Shoe -Treatment Response Procedure Procedure Tolerated Well Tolerated Well Pain Scale: 0-10 Numeric Is Patient Pain Free? Yes Yes Wound debrided: anterior leg Laterality: Left Wound Grade/Stage: grade 1 Type of Debridement: Excisional debridement Anesthesia Used: 5% Lidocaine Gel Depth: in the subcutaneous layer Percentage of wound debrided: 100 Instrument Used: #15 blade Tissue Removed: fibrous, devitalized subcutaneous, biofilm, slough Severity: Fat Layer Exposed Amount of bleeding with debridement: Mild Bleeding Controlled with: Pressure Patient tolerated procedure well - Additional Wound Wound debrided: foot Laterality: Left Type of Debridement: Selective debridement Anesthesia Used: 5% Lidocaine Gel Depth: Down to and including healthy tissue Percentage of wound debrided: 100 Instrument Used: #15 blade Tissue Removed: fibrous, devitalized tissue, biofilm, slough Severity: Limited To Skin Breakdown Amount of bleeding with debridement: Mild Bleeding Controlled with: Pressure Patient tolerated procedure: Patient tolerated procedure well - Additional Wound Wound debrided: heel (posterior) Laterality: Right Wound Grade/Stage: grade 3 Type of Debridement: Excisional debridement Anesthesia Used: 5% Lidocaine Gel Depth: in the subcutaneous layer Percentage of wound debrided: 100 Instrument Used: #15 blade Tissue Removed: fibrous, devitalized subcutaneous, biofilm, slough Severity: Fat Layer Exposed Amount of bleeding with debridement: Mild Bleeding Controlled with: Pressure Patient tolerated procedure: Patient tolerated procedure well - Additional Wound Wound debrided: heel (anterior) Laterality: Right Wound Grade/Stage: grade 1 Type of Debridement: Excisional debridement Anesthesia Used: 5% Lidocaine Gel Depth: in the subcutaneous layer Percentage of wound debrided: 100 Instrument Used: #15 blade Tissue Removed: fibrous, devitalized subcutaneous, biofilm, slough Severity: Fat Layer Exposed Amount of bleeding with debridement: Mild Bleeding Controlled with: Pressure Patient tolerated procedure: Patient tolerated procedure well - Additional Wound Wound debrided: sub 1st metatarsal head Laterality: Right Wound Grade/Stage: grade 1 Type of Debridement: Excisional debridement Anesthesia Used: 5% Lidocaine Gel Depth: in the subcutaneous layer Percentage of wound debrided: 100 Instrument Used: #15 blade Tissue Removed: fibrous, devitalized subcutaneous, biofilm, slough Severity: Fat Layer Exposed Amount of bleeding with debridement: Mild Bleeding Controlled with: Pressure Patient tolerated procedure: Patient tolerated procedure well Assessment/Plan Active Problems Lymphedema (Chronic) Venous insufficiency (Chronic) Ulcer of right foot with fat layer exposed (Chronic) Skin ulcer of left foot (Chronic) Blister of left leg (Acute) Ulcer of right lower extremity with fat layer exposed (Acute) Ulcer of left lower extremity with fat layer exposed (Acute) Lower extremity edema (Chronic) Type 2 diabetes mellitus with diabetic polyneuropathy (Chronic) Assessment: Right forefoot medial ulcer - stable and infection resolved. Right heel ulcer with delayed healing -stable. left leg ulcer new , no infection. Foot ulcer central lateral TMA site , skin layer exposed only. Diabetes with neuropathy. lymphedema and continued leg swelling. peripheral vacular disease. venous insufficiency Plan: I discussed his case and treatment plan. Subcutaneous excisional and selective debridement was performed to ulcer sites as noted in the nursing clinical panel. To continue daily dressing changes with Aquacel. To maintain improved skin integrity by applying lac hydrin lotion to both legs daily. Continue circaid wraps bilateral legs daily; it is okay to apply tubigrip prior to application of CircAid foot wrap to better keep his wound dressings in place. To continue compression pump device daily; he is doing well with this. To proceed as previously advised with his lymphedema follow-up as advised. He is [facility] from the [facility] at this time. [place]arrow compression garments to promote improved continued edema management at a more proximal level was approved for right lower extremity use; to use as advised. It is noted he was not approved for the left lower extremity because he did not meet qualifying criteria of open left leg current ulcer site. To continue Lasix use as advised by primary care physician. To offload left stump ulcer site with aperture pad. Proper use was verbally explained again today. To continue with portion control for weight loss and proper glycemic control and nutritional supplementation to optimize healing. His hemoglobin A1c went from 9.0 to 7.4. To continue strict offloading to all these ulcer sites. He has a donut offloading pillow and he was advised to use this. To follow-up with Dr. Peng as advised for the recommended bilateral intervention, venous. His recent vascular intervention in the left lower extremity is noted. All of his questions were answered. He understands he is still at risk for limb loss. . To follow-up at the wound care center in 1 week or call sooner if he has any questions or concerns.
== END 2018-09-12 23:59 ==
LOC: WC 11:15
PROVIDERS: Family Provider Family Medicine; PCP Family Medicine; Referring Provider Podiatrist; Visit Provider Podiatrist
DX: E11.621 Type 2 diabetes mellitus with foot ulcer (principal); E11.42 Type 2 diabetes mellitus with diabetic polyneuropathy; I87.2 Venous insufficiency (chronic) (peripheral); I89.0 Lymphedema, not elsewhere classified; L97.412 Non-pressure chronic ulcer of right heel and midfoot with fat layer exposed; L97.522 Non-pressure chronic ulcer of other part of left foot with fat layer exposed; L97.512 Non-pressure chronic ulcer of other part of right foot with fat layer exposed; M86.671 Other chronic osteomyelitis, right ankle and foot; R60.0 Localized edema
CPT/HCPCS: 11042; 97597

== ENCOUNTER 2018-09-29 11:00 | Outpatient (RCR) | payer MEDICARE, MEDICAID, SELFPAY ==
[2018-09-13 00:27] VITALS: BP 155/110; PULSE 63; RESP 20; TEMP 36.3
[2018-09-22 11:10] VITALS: BP 179/81; PULSE 50; RESP 16; TEMP 35.7; BMI 53.1
--- NOTE | 2018-09-22 11:54 | PCM.WC.PN ---
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: Chronic Current Visit: Yes Code(s): L97.512 - Non-pressure chronic ulcer of other part of right foot with fat layer exposed (2) Blister of left leg Status: Acute Current Visit: Yes Qualifiers: Encounter type: initial encounter Code(s): S80.822A - Blister (nonthermal), left lower leg, initial encounter (3) Chronic ulcer of left foot with fat layer exposed Status: Resolved Current Visit: Yes Code(s): L97.522 - Non-pressure chronic ulcer of other part of left foot with fat layer exposed (4) Lymphedema Status: Chronic Current Visit: Yes Code(s): I89.0 - Lymphedema, not elsewhere classified (5) Obesity Status: Chronic Current Visit: Yes Code(s): E66.9 - Obesity, unspecified (6) Lower extremity edema Status: Chronic Current Visit: Yes Code(s): R60.0 - Localized edema (7) Type 2 diabetes mellitus with diabetic polyneuropathy Status: Chronic Current Visit: Yes Code(s): E11.42 - Type 2 diabetes mellitus with diabetic polyneuropathy Type of Wound Date of Service: 09/22/18 Chief Complaint: Multiple ulcers and leg swelling. New left leg blister History of Wound: 63 year old male was seen for right heel ulcer with chronic osteomyelitis, right plantar heel ulcer, and left foot ulcers. He is also seen today for left leg blister. This occurred approximately 4 days ago and he thinks he may have bumped his leg. He denies current increase in leg swelling as compared to last week. He has been taking double his Lasix dose. He denies fever, chill, nausea, vomiting. He will continue dressing as advised with Aquacel. He uses the compression pumps 2-3 times a day with significant edema reduction. He completed his vascular surgery angioplasty with Dr. Peng for the left lower extremity. He has received treatment at the lymphedema clinic as well. He uses CircAid compression wraps. He has followed with Dr. Peng as advised. He denies fever, chill, nausea, vomiting. He is using recommend aperture on the left foot as advised most of the time. He denies left foot drainage. He wears a right cam walker boot. Progress of Wound: Improving to all sites. Healed left foot ulcer. New left leg phoebe - Physical Exam Vital Signs Temp Pulse Resp BP 96.2 F L 50 L 16 179/81 H 09/22/18 11:10 09/22/18 11:10 09/22/18 11:10 09/22/18 11:10 General: Alert, Oriented x3, Cooperative, No apparent distress Extremities: No cyanosis, Capillary Refill Less than 3 Seconds, No Calf Tenderness - Negative [place] present bilateral, Diminished Peripheral Pulses, Edema - Bilateral lower extremities with hyperpigmentation, - - Left transmetatarsal amputation. Right hallux amputation. Dorsal contracture lesser toes right Skin: Ulcer/ Wound - No purulence, erythema hamstring, odor, infection right foot ulcer sites. There is full epithelialization noted to the left previous ulcer site to the central TMA. The peripheral skin is hairless and atrophic. There is a serous filled drainage blister/bulla noted to the anterior left bernstein with no infection or deep tissue exposure noted. There is some maceration to the plantar heel ulcer site upon debridement the ulcer site is slightly larger Wound Measurements and Assessment WC - Nurse 1 - General Ulcer Measurement Start: 09/22/18 11:10 Freq: Status: Active Protocol: Activity Type Activity Date Activity User E-Sign Co-Sign Detail Recorded Client Recorded Date Recorded By Document 09/22/18 11:10 [facility] [id number] 09/22/18 11:24 [facility] 09/22/18 11:10 Wound Center Nurse 1 [Ulcer Assessment] #24 left central TMA -Combined with other wound No -Current Size (cm) - Length 0.1 -Current Size (cm) - Width 0.1 -Current Size (cm) - Depth 0.1 -Total Square Cm 0.01 -Epithelialization Large 67-100% -Tunneling No -Undermining/Tunneling No -Circular Undermining No -Exudate Amt None Present -Texture (Susy-wound Skin Appearance) Assessed, Scarring -Moisture (Susy-wound Skin Appearance Assessed,Dry/ ) Scaly -Color (Susy-wound Skin Appearance) Assessed -Temperature (Susy-wound Skin No Abnormality Appearance) (Pt Warm) -Tenderness on Palpation (Susy-wound No Skin Appearance) -Ulcer Cleansing Wound Cleanser -Foul Odor after Cleansing No -Anesthetic Used 5% Lidocaine Gel #23 left bernstein -Combined with other wound No -Current Size (cm) - Length 0 -Current Size (cm) - Width 0 -Current Size (cm) - Depth 0 -Total Square Cm 0 -Epithelialization Large 67-100% -Texture (Susy-wound Skin Appearance) Assessed, Scarring -Moisture (Susy-wound Skin Appearance Assessed,Dry/ ) Scaly -Color (Susy-wound Skin Appearance) Assessed, Hemosiderin Staining -Temperature (Susy-wound Skin No Abnormality Appearance) (Pt Warm) -Tenderness on Palpation (Susy-wound No Skin Appearance) -Ulcer Cleansing Wound Cleanser #21 rt plantar -Combined with other wound No -Current Size (cm) - Length 1.8 -Current Size (cm) - Width 1.4 -Current Size (cm) - Depth 0.2 -Total Square Cm 2.52 -Photo Taken No -Epithelialization None Present -Tunneling No -Undermining/Tunneling No -Circular Undermining No -Wound Margin Thickened -Granulation Amt Medium (34-66%) -Granulation Quality Red -Slough/Fibrin Yes -Necrosis Amt Medium (34-66%) -Necrotic Tissue Type Adherent Slough -Texture (Susy-wound Skin Appearance) Assessed,Callus ,Scarring -Moisture (Susy-wound Skin Appearance Assessed,Dry/ ) Scaly -Color (Susy-wound Skin Appearance) Assessed -Temperature (Susy-wound Skin No Abnormality Appearance) (Pt Warm) -Tenderness on Palpation (Susy-wound No Skin Appearance) -Ulcer Cleansing Wound Cleanser -Foul Odor after Cleansing No -Anesthetic Used 5% Lidocaine Gel 20-right posterior heel -Combined with other wound No -Current Size (cm) - Length 1 -Current Size (cm) - Width 2 -Current Size (cm) - Depth 0.3 -Total Square Cm 2 -Photo Taken No -Epithelialization None Present -Tunneling No -Undermining/Tunneling Yes -Undermining/Tunneling Starts (O' 9 clock) -Undermining/Tunneling Ends (O'clock) 3 -Maximum Distance (cm) 1 -Circular Undermining No -Exudate Amt Small -Exudate Type Serosanguineous -Wound Margin Distinct, Outline Attached -Granulation Amt Medium (34-66%) -Granulation Quality Red -Slough/Fibrin Yes -Necrosis Amt Medium (34-66%) -Necrotic Tissue Type Adherent Slough -Texture (Susy-wound Skin Appearance) Assessed,Callus ,Scarring -Moisture (Susy-wound Skin Appearance Assessed, ) Maceration -Color (Susy-wound Skin Appearance) Assessed,Palor -Temperature (Susy-wound Skin No Abnormality Appearance) (Pt Warm) -Tenderness on Palpation (Susy-wound No Skin Appearance) -Ulcer Cleansing Wound Cleanser -Foul Odor after Cleansing No -Anesthetic Used 5% Lidocaine Gel #1 right medial heel -Combined with other wound No -Current Size (cm) - Length 1.8 -Current Size (cm) - Width 0.9 -Current Size (cm) - Depth 0.2 -Total Square Cm 1.62 -Photo Taken No -Epithelialization None Present -Tunneling No -Undermining/Tunneling No -Circular Undermining No -Exudate Amt Small -Exudate Type Serosanguineous -Wound Margin Thickened -Granulation Amt Medium (34-66%) -Granulation Quality Red -Slough/Fibrin Yes -Necrosis Amt Medium (34-66%) -Necrotic Tissue Type Adherent Slough -Texture (Susy-wound Skin Appearance) Assessed,Callus ,Scarring -Moisture (Susy-wound Skin Appearance Assessed, ) Maceration -Color (Susy-wound Skin Appearance) Assessed,Palor -Temperature (Susy-wound Skin No Abnormality Appearance) (Pt Warm) -Tenderness on Palpation (Susy-wound No Skin Appearance) -Ulcer Cleansing Wound Cleanser -Foul Odor after Cleansing No -Anesthetic Used 5% Lidocaine Gel [Edema Assessment] -Lower Limb Edema Present Yes -Right Calf (cm) 52 -Right Ankle (cm) 28.2 -Left Calf (cm) 51 -Left Ankle (cm) 28.4 WC - Nurse 2 - General Ulcer CM Notes Start: 09/22/18 11:10 Freq: Status: Active Protocol: Activity Type Activity Date Activity User E-Sign Co-Sign Detail Recorded Client Recorded Date Recorded By Document 09/22/18 11:44 [facility] [id number] 09/22/18 11:47 [facility] 09/22/18 11:44 Wound Center Nurse 2 [Procedure/Treatment] #24 left central TMA -Correct Patient No -Correct Side, Site, Position No -Correct Procedure No -Procedure Performed No -Post Debridement Size (cm) - Length 0 -Post Debridement Size (cm) - Width 0 -Post Debridement Size (cm) - Depth 0 -Total Square Cm 0 -Wound/Ulcer Outcome Healed- Epithelialized #23 left bernstein -Correct Patient No -Correct Side, Site, Position No -Correct Procedure No -Procedure Performed No -Post Debridement Size (cm) - Length 0 -Post Debridement Size (cm) - Width 0 -Post Debridement Size (cm) - Depth 0 -Total Square Cm 0 -Wound/Ulcer Outcome Healed- Epithelialized #21 rt plantar -Time 11:45 -Correct Patient Yes -Correct Side, Site, Position Yes -Correct Procedure Yes -Procedure Performed Yes -Type of Procedure Debridement -Clinical Debridement Subcutaneous -Post Debridement Size (cm) - Length 1.8 -Post Debridement Size (cm) - Width 1.5 -Post Debridement Size (cm) - Depth 0.2 -Total Square Cm 2.70 -Wound/Ulcer Outcome Not Healed -Ulcer Cleansing Rinsed/ Irrigated with Saline -Foul Odor after Cleansing No -Bioengineered Tissue No -Bleeding Controlled with Pressure -Offloading Yes -Type of Offloading Camwalker -Treatment Response Procedure Tolerated Well 20-right posterior heel -Time 11:45 -Correct Patient Yes -Correct Side, Site, Position Yes -Correct Procedure Yes -Procedure Performed Yes -Type of Procedure Debridement -Clinical Debridement Subcutaneous -Post Debridement Size (cm) - Length 1.1 -Post Debridement Size (cm) - Width 2 -Post Debridement Size (cm) - Depth 0.3 -Total Square Cm 2.2 -Wound/Ulcer Outcome Not Healed -Ulcer Cleansing Rinsed/ Irrigated with Saline -Foul Odor after Cleansing No -Bioengineered Tissue No -Bleeding Controlled with Pressure -Offloading Yes -Type of Offloading Camwalker -Treatment Response Procedure Tolerated Well #1 right medial heel -Time 11:46 -Correct Patient Yes -Correct Side, Site, Position Yes -Correct Procedure Yes -Procedure Performed Yes -Type of Procedure Debridement -Clinical Debridement Subcutaneous -Post Debridement Size (cm) - Length 1.8 -Post Debridement Size (cm) - Width 1 -Post Debridement Size (cm) - Depth 0.2 -Total Square Cm 1.8 -Wound/Ulcer Outcome Not Healed -Ulcer Cleansing Rinsed/ Irrigated with Saline -Foul Odor after Cleansing No -Bioengineered Tissue No -Bleeding Controlled with Pressure -Offloading Yes -Type of Offloading Surgical Shoe -Treatment Response Procedure Tolerated Well [See Physician Procedure note for Specifics] Pain Scale: 0-10 Numeric [Pain] -Is Patient Pain Free? Yes Musculoskeletal: No Muscle Wasting, Muscle Wasting, - - Compartments soft to palpate bilateral lower extremities Neurological: - - Lack of normal epicritic sensation light touch consistent with neuropathy bilateral lower extremities Psych/Mental Status: Normal Affect, Appropriate Debridement Note Post-Debridement Measurements/Treatment WC - Nurse 2 - General Ulcer CM Notes Start: 09/22/18 11:10 Freq: Status: Active Protocol: Activity Type Activity Date Activity User E-Sign Co-Sign Detail Recorded Client Recorded Date Recorded By Document 09/22/18 11:44 [facility] [id number] 09/22/18 11:47 NORRIS 09/22/18 11:44 Wound Center Nurse 2 #24 left central TMA -Correct Patient No -Correct Side, Site, Position No -Correct Procedure No -Procedure Performed No -Post Debridement Size (cm) - Length 0 -Post Debridement Size (cm) - Width 0 -Post Debridement Size (cm) - Depth 0 -Total Square Cm 0 -Wound/Ulcer Outcome Healed- Epithelialized #23 left bernstein -Correct Patient No -Correct Side, Site, Position No -Correct Procedure No -Procedure Performed No -Post Debridement Size (cm) - Length 0 -Post Debridement Size (cm) - Width 0 -Post Debridement Size (cm) - Depth 0 -Total Square Cm 0 -Wound/Ulcer Outcome Healed- Epithelialized #21 rt plantar -Time 11:45 -Correct Patient Yes -Correct Side, Site, Position Yes -Correct Procedure Yes -Procedure Performed Yes -Type of Procedure Debridement -Clinical Debridement Subcutaneous -Post Debridement Size (cm) - Length 1.8 -Post Debridement Size (cm) - Width 1.5 -Post Debridement Size (cm) - Depth 0.2 -Total Square Cm 2.70 -Wound/Ulcer Outcome Not Healed -Ulcer Cleansing Rinsed/ Irrigated with Saline -Foul Odor after Cleansing No -Bioengineered Tissue No -Bleeding Controlled with Pressure -Offloading Yes -Type of Offloading Camwalker -Treatment Response Procedure Tolerated Well 20-right posterior heel -Time 11:45 -Correct Patient Yes -Correct Side, Site, Position Yes -Correct Procedure Yes -Procedure Performed Yes -Type of Procedure Debridement -Clinical Debridement Subcutaneous -Post Debridement Size (cm) - Length 1.1 -Post Debridement Size (cm) - Width 2 -Post Debridement Size (cm) - Depth 0.3 -Total Square Cm 2.2 -Wound/Ulcer Outcome Not Healed -Ulcer Cleansing Rinsed/ Irrigated with Saline -Foul Odor after Cleansing No -Bioengineered Tissue No -Bleeding Controlled with Pressure -Offloading Yes -Type of Offloading Camwalker -Treatment Response Procedure Tolerated Well #1 right medial heel -Time 11:46 -Correct Patient Yes -Correct Side, Site, Position Yes -Correct Procedure Yes -Procedure Performed Yes -Type of Procedure Debridement -Clinical Debridement Subcutaneous -Post Debridement Size (cm) - Length 1.8 -Post Debridement Size (cm) - Width 1 -Post Debridement Size (cm) - Depth 0.2 -Total Square Cm 1.8 -Wound/Ulcer Outcome Not Healed -Ulcer Cleansing Rinsed/ Irrigated with Saline -Foul Odor after Cleansing No -Bioengineered Tissue No -Bleeding Controlled with Pressure -Offloading Yes -Type of Offloading Surgical Shoe -Treatment Response Procedure Tolerated Well Pain Scale: 0-10 Numeric Is Patient Pain Free? Yes Wound debrided: sub 1st metatarsal head Laterality: Right - g Wound Grade/Stage: grade 1 Type of Debridement: Excisional debridement Anesthesia Used: 5% Lidocaine Gel Depth: in the subcutaneous layer Percentage of wound debrided: 100 Instrument Used: #15 blade Tissue Removed: Devitalized subcutaneous, fibrous, biofilm, slough Severity: Fat Layer Exposed Amount of bleeding with debridement: Mild Bleeding Controlled with: Pressure Patient tolerated procedure well - Additional Wound Wound debrided: heel posterior Laterality: Right Wound Grade/Stage: grade 3 Type of Debridement: Excisional debridement Anesthesia Used: 5% Lidocaine Gel Depth: in the subcutaneous layer Percentage of wound debrided: 100 Instrument Used: #15 blade Tissue Removed: Devitalized subcutaneous, fibrous, biofilm, slough Amount of bleeding with debridement: Mild Bleeding Controlled with: Pressure Patient tolerated procedure: Patient tolerated procedure well - Additional Wound Wound debrided: heel (plantar) Laterality: Right Wound Grade/Stage: grade 1 Type of Debridement: Excisional debridement Anesthesia Used: 5% Lidocaine Gel Depth: in the subcutaneous layer Percentage of wound debrided: 100 Instrument Used: #15 blade Tissue Removed: Devitalized subcutaneous, fibrous, biofilm, slough Severity: Fat Layer Exposed Amount of bleeding with debridement: Mild Bleeding Controlled with: Pressure Patient tolerated procedure: Patient tolerated procedure well Assessment/Plan Active Problems Lymphedema (Chronic) Ulcer of right foot with fat layer exposed (Chronic) Blister of left leg (Acute) Obesity (Chronic) Lower extremity edema (Chronic) Type 2 diabetes mellitus with diabetic polyneuropathy (Chronic) Assessment: Right forefoot medial ulcer - stable and infection resolved. Right heel ulcer with delayed healing -stable. Foot ulcer central lateral TMA site, healed today. New left leg blister no infection. Diabetes with neuropathy. lymphedema and continued leg swelling. peripheral vacular disease. venous insufficiency Plan: I discussed his case and treatment plan. Subcutaneous excisional and selective debridement was performed to ulcer sites as noted in the nursing clinical panel to the right foot. To continue daily dressing changes with Aquacel. His left foot ulcer site has healed and it is okay if he covers it with a aperture pad and dry gauze to allow the skin remodeling. The blister to left leg was drained with a 15 blade and the outer skin was left intact as a biologic barrier. To apply a dry gauze to the site as well and this will be reevaluated next week. To maintain improved skin integrity by applying lac hydrin lotion to both legs daily. Continue circaid wraps bilateral legs daily; it is okay to apply tubigrip prior to application of CircAid foot wrap to better keep his wound dressings in place. To continue compression pump device daily; he is doing well with this. To proceed as previously advised with his lymphedema follow-up as advised. He is discharged from the [facility] at this time. Farrow compression garments to promote improved continued edema management at a more proximal level was approved for right lower extremity use; to use as advised. It is noted he was not approved for the left lower extremity because he did not meet qualifying criteria of open left leg current ulcer site. To continue Lasix use as advised by primary care physician. To offload left stump ulcer site with aperture pad. Proper use was verbally explained again today. To continue with portion control for weight loss and proper glycemic control and nutritional supplementation to optimize healing. His hemoglobin A1c went from 9.0 to 7.4. To continue strict offloading to all these ulcer sites. He has a donut offloading pillow and he was advised to use this. To follow-up with Dr. Peng as advised for the recommended bilateral intervention, venous. His recent vascular intervention in the left lower extremity is noted. All of his questions were answered. He understands he is still at risk for limb loss. . To follow-up at the wound care center in 1 week or call sooner if he has any questions or concerns.
[2018-09-29 11:04] VITALS: BP 165/68; PULSE 45; RESP 16; TEMP 35.4; BMI 53.1
--- NOTE | 2018-09-29 12:25 | PCM.WC.PN ---
(1) Ulcer of right lower extremity with fat layer exposed Status: Chronic Code(s): L97.912 - Non-pressure chronic ulcer of unspecified part of right lower leg with fat layer exposed (2) Ulcer of right foot with fat layer exposed Status: Chronic Code(s): L97.512 - Non-pressure chronic ulcer of other part of right foot with fat layer exposed (3) Lymphedema Status: Chronic Code(s): I89.0 - Lymphedema, not elsewhere classified (4) Obesity Status: Chronic Code(s): E66.9 - Obesity, unspecified (5) Lower extremity edema Status: Chronic Code(s): R60.0 - Localized edema (6) Type 2 diabetes mellitus with diabetic polyneuropathy Status: Chronic Code(s): E11.42 - Type 2 diabetes mellitus with diabetic polyneuropathy Type of Wound Date of Service: 10/03/18 Chief Complaint: Multiple ulcers and leg swelling History of Wound: 63 year old male was seen for right heel ulcer with chronic osteomyelitis, right plantar heel ulcer, and left foot ulcers. He denies fever, chill, nausea, vomiting. He will continue dressing as advised with Aquacel. He uses the compression pumps 2-3 times a day with significant edema reduction. He completed his vascular surgery angioplasty with Dr. Peng for the left lower extremity. He has received treatment at the lymphedema clinic as well. He uses CircAid compression wraps. He has followed with Dr. Peng as advised. He is using recommend aperture on the left foot as advised most of the time. He denies left foot drainage. He wears a right cam walker boot. Progress of Wound: Improving to all sites - Physical Exam Vital Signs Temp Pulse Resp BP 95.7 F L 45 L 16 165/68 H 09/29/18 11:04 09/29/18 11:04 09/29/18 11:04 09/29/18 11:04 General: Alert, Oriented x3, Cooperative, No apparent distress HEENT: Atraumatic Extremities: No cyanosis, Capillary Refill Less than 3 Seconds, No Calf Tenderness - Negative Keara and Simmons signs bilateral, Diminished Peripheral Pulses, Edema Skin: Ulcer/ Wound - No purulence, erythema, streaking, odor, infection bilateral. Peripheral skin is healthy atrophic Wound Measurements and Assessment WC - Nurse 1 - General Ulcer Measurement Start: 09/22/18 11:10 Freq: Status: Active Protocol: Activity Type Activity Date Activity User E-Sign Co-Sign Detail Recorded Client Recorded Date Recorded By Document 09/29/18 11:04 [facility] [id number] 09/29/18 11:19 [facility] 09/29/18 11:04 Wound Center Nurse 1 [Ulcer Assessment] #21 rt plantar -Combined with other wound No -Current Size (cm) - Length 1.9 -Current Size (cm) - Width 1 -Current Size (cm) - Depth 0.1 -Total Square Cm 1.9 -Photo Taken No -Epithelialization Small 1-33% -Tunneling No -Undermining/Tunneling No -Circular Undermining No -Exudate Amt Small -Exudate Type Serous -Wound Margin Distinct, Outline Attached -Granulation Amt Large (67-100%) -Granulation Quality Red -Slough/Fibrin Yes -Necrosis Amt Small (1-33%) -Necrotic Tissue Type Adherent Slough -Texture (Susy-wound Skin Appearance) Callus,Scarring -Moisture (Susy-wound Skin Appearance Maceration,Dry/ ) Scaly -Color (Susy-wound Skin Appearance) Assessed,Palor -Temperature (Susy-wound Skin No Abnormality Appearance) (Pt Warm) -Tenderness on Palpation (Susy-wound No Skin Appearance) -Foul Odor after Cleansing No -Anesthetic Used 4% Lidocaine Solution 20-right posterior heel -Combined with other wound No -Current Size (cm) - Length 1.6 -Current Size (cm) - Width 1.8 -Current Size (cm) - Depth 0.3 -Total Square Cm 2.88 -Photo Taken No -Epithelialization None Present -Tunneling No -Undermining/Tunneling No -Circular Undermining No -Exudate Amt Small -Exudate Type Serous -Wound Margin Distinct, Outline Attached -Granulation Amt Medium (34-66%) -Granulation Quality Red -Slough/Fibrin Yes -Necrosis Amt Small (1-33%) -Necrotic Tissue Type Adherent Slough -Texture (Susy-wound Skin Appearance) Assessed,Callus ,Scarring -Moisture (Susy-wound Skin Appearance Assessed, ) Maceration -Color (Susy-wound Skin Appearance) Assessed,Palor -Temperature (Susy-wound Skin No Abnormality Appearance) (Pt Warm) -Tenderness on Palpation (Susy-wound No Skin Appearance) -Foul Odor after Cleansing No -Anesthetic Used 4% Lidocaine Solution #1 right medial heel -Combined with other wound No -Current Size (cm) - Length 1.1 -Current Size (cm) - Width 1.6 -Current Size (cm) - Depth 0.2 -Total Square Cm 1.76 -Photo Taken No -Epithelialization Small 1-33% -Tunneling No -Undermining/Tunneling No -Circular Undermining No -Exudate Amt Small -Exudate Type Serous -Wound Margin Distinct, Outline Attached -Granulation Amt Large (67-100%) -Granulation Quality Red -Slough/Fibrin Yes -Necrosis Amt Small (1-33%) -Necrotic Tissue Type Adherent Slough -Texture (Susy-wound Skin Appearance) Assessed,Callus ,Scarring -Moisture (Susy-wound Skin Appearance Assessed, ) Maceration -Color (Susy-wound Skin Appearance) Assessed,Palor -Temperature (Susy-wound Skin No Abnormality Appearance) (Pt Warm) -Tenderness on Palpation (Susy-wound No Skin Appearance) -Foul Odor after Cleansing No -Anesthetic Used 4% Lidocaine Solution [Edema Assessment] -Lower Limb Edema Present Yes -Right Calf (cm) 49 -Right Ankle (cm) 30.4 -Left Calf (cm) 46 -Left Ankle (cm) 29.1 WC - Nurse 2 - General Ulcer CM Notes Start: 09/22/18 11:10 Freq: Status: Active Protocol: Activity Type Activity Date Activity User E-Sign Co-Sign Detail Recorded Client Recorded Date Recorded By Document 09/29/18 11:26 AN [id number] 09/29/18 11:34 AN 09/29/18 11:26 Wound Center Nurse 2 [Procedure/Treatment] #21 rt plantar -Time 11:32 -Correct Patient Yes -Correct Side, Site, Position Yes -Correct Procedure Yes -Procedure Performed Yes -Type of Procedure Debridement -Clinical Debridement Subcutaneous -Post Debridement Size (cm) - Length 2.0 -Post Debridement Size (cm) - Width 1.1 -Post Debridement Size (cm) - Depth 0.1 -Total Square Cm 2.20 -Wound/Ulcer Outcome Not Healed 20-right posterior heel -Time 11:32 -Correct Patient Yes -Correct Side, Site, Position Yes -Correct Procedure Yes -Procedure Performed Yes -Type of Procedure Debridement -Clinical Debridement Subcutaneous -Post Debridement Size (cm) - Length 1.7 -Post Debridement Size (cm) - Width 1.9 -Post Debridement Size (cm) - Depth 0.3 -Total Square Cm 3.23 -Wound/Ulcer Outcome Not Healed -Bleeding Controlled with Pressure -Type of Offloading Surgical Shoe -Treatment Response Procedure Tolerated Well #1 right medial heel -Time 11:33 -Correct Patient Yes -Correct Side, Site, Position Yes -Correct Procedure Yes -Procedure Performed Yes -Type of Procedure Debridement -Clinical Debridement Subcutaneous -Post Debridement Size (cm) - Length 1.2 -Post Debridement Size (cm) - Width 1.7 -Post Debridement Size (cm) - Depth 0.2 -Total Square Cm 2.04 -Wound/Ulcer Outcome Not Healed -Ulcer Cleansing Rinsed/ Irrigated with Saline -Bleeding Controlled with Pressure -Treatment Response Procedure Tolerated Well [See Physician Procedure note for Specifics] Pain Scale: 0-10 Numeric [Pain] -Is Patient Pain Free? Yes Musculoskeletal: No Tenderness to Palpation of Joints or Extremities, Muscle Wasting Neurological: - - Lack of normal epicritic sensation light touch consistent with neuropathy Psych/Mental Status: Normal Affect, Appropriate Debridement Note Post-Debridement Measurements/Treatment WC - Nurse 2 - General Ulcer CM Notes Start: 09/22/18 11:10 Freq: Status: Active Protocol: Activity Type Activity Date Activity User E-Sign Co-Sign Detail Recorded Client Recorded Date Recorded By Document 09/22/18 11:44 [id number] 09/22/18 11:47 Document 09/29/18 11:26 AN [id number] 09/29/18 11:34 AN 09/22/18 09/29/18 11:44 11:26 Wound Center Nurse 2 #24 left central TMA -Correct Patient No -Correct Side, Site, Position No -Correct Procedure No -Procedure Performed No -Post Debridement Size (cm) - Length 0 -Post Debridement Size (cm) - Width 0 -Post Debridement Size (cm) - Depth 0 -Total Square Cm 0 -Wound/Ulcer Outcome Healed- Epithelialized #23 left bernstein -Correct Patient No -Correct Side, Site, Position No -Correct Procedure No -Procedure Performed No -Post Debridement Size (cm) - Length 0 -Post Debridement Size (cm) - Width 0 -Post Debridement Size (cm) - Depth 0 -Total Square Cm 0 -Wound/Ulcer Outcome Healed- Epithelialized #21 rt plantar -Time 11:45 11:32 -Correct Patient Yes Yes -Correct Side, Site, Position Yes Yes -Correct Procedure Yes Yes -Procedure Performed Yes Yes -Type of Procedure Debridement Debridement -Clinical Debridement Subcutaneous Subcutaneous -Post Debridement Size (cm) - Length 1.8 2.0 -Post Debridement Size (cm) - Width 1.5 1.1 -Post Debridement Size (cm) - Depth 0.2 0.1 -Total Square Cm 2.70 2.20 -Wound/Ulcer Outcome Not Healed Not Healed -Ulcer Cleansing Rinsed/ Irrigated with Saline -Foul Odor after Cleansing No -Bioengineered Tissue No -Bleeding Controlled with Pressure -Offloading Yes -Type of Offloading Camwalker -Treatment Response Procedure Tolerated Well 20-right posterior heel -Time 11:45 11:32 -Correct Patient Yes Yes -Correct Side, Site, Position Yes Yes -Correct Procedure Yes Yes -Procedure Performed Yes Yes -Type of Procedure Debridement Debridement -Clinical Debridement Subcutaneous Subcutaneous -Post Debridement Size (cm) - Length 1.1 1.7 -Post Debridement Size (cm) - Width 2 1.9 -Post Debridement Size (cm) - Depth 0.3 0.3 -Total Square Cm 2.2 3.23 -Wound/Ulcer Outcome Not Healed Not Healed -Ulcer Cleansing Rinsed/ Irrigated with Saline -Foul Odor after Cleansing No -Bioengineered Tissue No -Bleeding Controlled with Pressure Pressure -Offloading Yes -Type of Offloading Camwalker Surgical Shoe -Treatment Response Procedure Procedure Tolerated Well Tolerated Well #1 right medial heel -Time 11:46 11:33 -Correct Patient Yes Yes -Correct Side, Site, Position Yes Yes -Correct Procedure Yes Yes -Procedure Performed Yes Yes -Type of Procedure Debridement Debridement -Clinical Debridement Subcutaneous Subcutaneous -Post Debridement Size (cm) - Length 1.8 1.2 -Post Debridement Size (cm) - Width 1 1.7 -Post Debridement Size (cm) - Depth 0.2 0.2 -Total Square Cm 1.8 2.04 -Wound/Ulcer Outcome Not Healed Not Healed -Ulcer Cleansing Rinsed/ Rinsed/ Irrigated with Irrigated with Saline Saline -Foul Odor after Cleansing No -Bioengineered Tissue No -Bleeding Controlled with Pressure Pressure -Offloading Yes -Type of Offloading Surgical Shoe -Treatment Response Procedure Procedure Tolerated Well Tolerated Well Pain Scale: 0-10 Numeric Is Patient Pain Free? Yes Yes Wound debrided: proximal leg Laterality: Right Wound Grade/Stage: grade 1 Type of Debridement: Excisional debridement Anesthesia Used: 5% Lidocaine Gel Depth: in the subcutaneous layer Percentage of wound debrided: 100 Instrument Used: #15 blade Tissue Removed: fibrous, devitalized subcutaneous, biofilm, slough Severity: Fat Layer Exposed Amount of bleeding with debridement: Mild Bleeding Controlled with: Pressure Patient tolerated procedure well - Additional Wound Wound debrided: heel posterior Laterality: Right Wound Grade/Stage: grade 3 Type of Debridement: Excisional debridement Anesthesia Used: 5% Lidocaine Gel Depth: in the subcutaneous layer Percentage of wound debrided: 100 Instrument Used: #15 blade Tissue Removed: fibrous, devitalized subcutaneous, biofilm, slough Severity: Fat Layer Exposed Amount of bleeding with debridement: Mild Bleeding Controlled with: Pressure Patient tolerated procedure: Patient tolerated procedure well - Additional Wound Wound debrided: heel (plantar distal) Laterality: Right Wound Grade/Stage: grade 1 Type of Debridement: Excisional debridement Anesthesia Used: 5% Lidocaine Gel Depth: in the subcutaneous layer Percentage of wound debrided: 100 Instrument Used: #15 blade Tissue Removed: fibrous, devitalized subcutaneous, biofilm, slough Severity: Fat Layer Exposed Amount of bleeding with debridement: Mild Bleeding Controlled with: Pressure Patient tolerated procedure: Patient tolerated procedure well - Additional Wound Wound debrided: sub 1st metatarsal head Laterality: Right Wound Grade/Stage: grade 2 Type of Debridement: Excisional debridement Anesthesia Used: 5% Lidocaine Gel Depth: in the subcutaneous layer Percentage of wound debrided: 100 Instrument Used: #15 blade Tissue Removed: fibrous, devitalized subcutaneous, biofilm, slough Severity: Fat Layer Exposed Amount of bleeding with debridement: Mild Bleeding Controlled with: Pressure Patient tolerated procedure: Patient tolerated procedure well Assessment/Plan Assessment: Right forefoot medial ulcer - stable and infection resolved. Right heel ulcer with delayed healing -stable. Foot ulcer central lateral TMA site, healed today. Diabetes with neuropathy. lymphedema and continued leg swelling. peripheral vacular disease. venous insufficiency Plan: I discussed his case and treatment plan. Subcutaneous excisional and selective debridement was performed to ulcer sites as noted in the nursing clinical panel to the right foot. To continue daily dressing changes with Aquacel. His left foot ulcer site has healed and it is okay if he covers it with a aperture pad and dry gauze to allow the skin remodeling. To maintain improved skin integrity by applying lac hydrin lotion to both legs daily. Continue circaid wraps bilateral legs daily; it is okay to apply tubigrip prior to application of CircAid foot wrap to better keep his wound dressings in place. To continue compression pump device daily; he is doing well with this. To proceed as previously advised with his lymphedema follow-up as advised. He is discharged from the [facility] at this time. Farrow compression garments to promote improved continued edema management at a more proximal level was approved for right lower extremity use; to use as advised. It is noted he was not approved for the left lower extremity because he did not meet qualifying criteria of open left leg current ulcer site. To continue Lasix use as advised by primary care physician. To offload left stump ulcer site with aperture pad. Proper use was verbally explained again today. To continue with portion control for weight loss and proper glycemic control and nutritional supplementation to optimize healing. His hemoglobin A1c went from 9.0 to 7.4. To continue strict offloading to all these ulcer sites. He has a donut offloading pillow and he was advised to use this. To follow-up with Dr. Peng as advised for the recommended bilateral intervention, venous. His recent vascular intervention in the left lower extremity is noted. All of his questions were answered. He understands he is still at risk for limb loss. . To follow-up at the wound care center in 1 week or call sooner if he has any questions or concerns.
== END 2018-10-13 23:59 ==
LOC: WC 11:00
PROVIDERS: Family Provider Family Medicine; PCP Family Medicine; Referring Provider Podiatrist; Visit Provider Podiatrist
DX: E11.621 Type 2 diabetes mellitus with foot ulcer (principal); E11.42 Type 2 diabetes mellitus with diabetic polyneuropathy; L97.412 Non-pressure chronic ulcer of right heel and midfoot with fat layer exposed; L97.522 Non-pressure chronic ulcer of other part of left foot with fat layer exposed; L97.512 Non-pressure chronic ulcer of other part of right foot with fat layer exposed; I89.0 Lymphedema, not elsewhere classified; E66.9 Obesity, unspecified; Z71.3 Dietary counseling and surveillance; R60.0 Localized edema; S80.822A Blister (nonthermal), left lower leg, initial encounter; X58.XXXA Exposure to other specified factors, initial encounter
CPT/HCPCS: 11042

== ENCOUNTER 2018-11-03 11:30 | Outpatient (RCR) | payer MEDICARE, MEDICAID, SELFPAY ==
[2018-10-14 00:33] VITALS: BP 165/68; PULSE 45; RESP 16; TEMP 35.4
[2018-10-20 11:10] VITALS: BP 182/75; PULSE 49; RESP 16; TEMP 35.7; BMI 53.1
--- NOTE | 2018-10-20 13:00 | PN.PCM_ITS ---
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: Chronic Current Visit: Yes Code(s): L97.512 - Non-pressure chronic ulcer of other part of right foot with fat layer exposed (2) Walking difficulty due to ankle and foot Status: Chronic Current Visit: Yes Code(s): R26.2 - Difficulty in walking, not elsewhere classified (3) Lymphedema Status: Chronic Current Visit: Yes Code(s): I89.0 - Lymphedema, not elsewhere classified (4) Venous insufficiency Status: Chronic Current Visit: Yes Code(s): I87.2 - Venous insufficiency (chronic) (peripheral) (5) Lower extremity edema Status: Chronic Current Visit: Yes Code(s): R60.0 - Localized edema (6) Type 2 diabetes mellitus with diabetic polyneuropathy Status: Chronic Current Visit: Yes Code(s): E11.42 - Type 2 diabetes mellitus with diabetic polyneuropathy (7) Malnutrition Status: Chronic Current Visit: Yes Code(s): E46 - Unspecified protein- calorie malnutrition (8) Lower extremity edema Status: Chronic Current Visit: Yes Code(s): R60.0 - Localized edema Type of Wound Date of Service: 10/21/18 Chief Complaint: Multiple ulcers and leg swelling History of Wound: 63 year old male was seen for right heel ulcer with chronic osteomyelitis, right plantar heel ulcer. His left foot ulcer remains healed without drainage. He continues to cover the site with an aperture pad. He denies fever, chill, nausea, vomiting. He will continue dressing as advised with Aquacel. He uses the compression pumps 2-3 times a day with significant edema reduction. He completed his vascular surgery angioplasty with Dr. Peng for the left lower extremity. He has received treatment at the lymphedema clinic as well. He uses CircAid compression wraps. He has followed with Dr. Peng as advised. He wears a right cam walker boot. Progress of Wound: Improving - Physical Exam Vital Signs Temp Pulse Resp BP 96.2 F L 49 L 16 182/75 H 10/20/18 11:10 10/20/18 11:10 10/20/18 11:10 10/20/18 11:10 General: Alert, Oriented x3, Cooperative, No apparent distress Extremities: No cyanosis, Capillary Refill Less than 3 Seconds, No Calf Tenderness - Negative, compartments are soft bilateral lower extremity, Diminished Peripheral Pulses, Edema Skin: Ulcer/ Wound - No purulence, erythema, streaking, odor, necrosis, deep tissue exposure. Peripheral skin is hairless and atrophic Wound Measurements and Assessment WC - Nurse 1 - General Ulcer Measurement Start: 10/20/18 11:10 Freq: Status: Active Protocol: Activity Type Activity Date Activity User E-Sign Co-Sign Detail Recorded Client Recorded Date Recorded By Document 10/20/18 11:10 NORRIS [id number] 10/20/18 11:25 NORRIS 10/20/18 11:10 Wound Center Nurse 1 [Ulcer Assessment] #21 rt plantar -Combined with other wound No -Current Size (cm) - Length 1.5 -Current Size (cm) - Width 0.4 -Current Size (cm) - Depth 0.1 -Total Square Cm 0.60 -Photo Taken Yes -Epithelialization Medium 34-66% -Tunneling No -Undermining/Tunneling No -Circular Undermining No -Exudate Amt Small -Exudate Type Serosanguineous -Wound Margin Flat & Intact -Granulation Amt Large (67-100%) -Granulation Quality Red -Slough/Fibrin Yes -Necrosis Amt Small (1-33%) -Necrotic Tissue Type Adherent Slough -Structure Exposed N/A -Texture (Susy-wound Skin Appearance) Assessed -Moisture (Susy-wound Skin Appearance Assessed,Dry/ ) Scaly -Color (Susy-wound Skin Appearance) Assessed -Temperature (Susy-wound Skin No Abnormality Appearance) (Pt Warm) -Tenderness on Palpation (Susy-wound No Skin Appearance) -Ulcer Cleansing Rinsed/ Irrigated with Saline -Foul Odor after Cleansing No -Anesthetic Used 4% Lidocaine Solution 20-right posterior heel -Combined with other wound No -Current Size (cm) - Length 1.3 -Current Size (cm) - Width 1.8 -Current Size (cm) - Depth 0.2 -Total Square Cm 2.34 -Photo Taken Yes -Epithelialization Small 1-33% -Tunneling No -Undermining/Tunneling No -Circular Undermining No -Exudate Amt Small -Exudate Type Serosanguineous -Wound Margin Flat & Intact -Granulation Amt Large (67-100%) -Granulation Quality Red -Slough/Fibrin Yes -Necrosis Amt Small (1-33%) -Necrotic Tissue Type Adherent Slough -Structure Exposed Fat Layer Exposed -Texture (Susy-wound Skin Appearance) Assessed,Callus -Moisture (Susy-wound Skin Appearance Assessed,Dry/ ) Scaly -Color (Susy-wound Skin Appearance) Assessed -Temperature (Susy-wound Skin No Abnormality Appearance) (Pt Warm) -Tenderness on Palpation (Susy-wound No Skin Appearance) -Ulcer Cleansing Rinsed/ Irrigated with Saline -Foul Odor after Cleansing No -Anesthetic Used 4% Lidocaine Solution #1 right medial heel -Combined with other wound No -Current Size (cm) - Length 0.7 -Current Size (cm) - Width 1.3 -Current Size (cm) - Depth 0.2 -Total Square Cm 0.91 -Photo Taken Yes -Epithelialization Small 1-33% -Tunneling No -Undermining/Tunneling No -Circular Undermining No -Exudate Amt Small -Exudate Type Serosanguineous -Wound Margin Flat & Intact -Granulation Amt Large (67-100%) -Granulation Quality Red -Slough/Fibrin Yes -Necrosis Amt Small (1-33%) -Necrotic Tissue Type Adherent Slough -Structure Exposed N/A -Texture (Susy-wound Skin Appearance) Assessed,Callus -Moisture (Susy-wound Skin Appearance Assessed,Dry/ ) Scaly -Color (Susy-wound Skin Appearance) Assessed -Temperature (Susy-wound Skin No Abnormality Appearance) (Pt Warm) -Tenderness on Palpation (Susy-wound No Skin Appearance) -Ulcer Cleansing Rinsed/ Irrigated with Saline -Foul Odor after Cleansing No -Anesthetic Used 4% Lidocaine Solution [Edema Assessment] -Lower Limb Edema Present Yes -Right Calf (cm) 52.5 -Right Ankle (cm) 28.2 -Left Calf (cm) 51.5 -Left Ankle (cm) 27.8 WC - Nurse 2 - General Ulcer CM Notes Start: 10/20/18 11:10 Freq: Status: Active Protocol: Activity Type Activity Date Activity User E-Sign Co-Sign Detail Recorded Client Recorded Date Recorded By Document 10/20/18 11:40 AN [id number] 10/20/18 11:43 AN 10/20/18 11:40 Wound Center Nurse 2 [Procedure/Treatment] #21 rt plantar -Time 11:41 -Correct Patient Yes -Correct Side, Site, Position Yes -Correct Procedure Yes -Procedure Performed Yes -Type of Procedure Debridement -Clinical Debridement Subcutaneous -Post Debridement Size (cm) - Length 1.6 -Post Debridement Size (cm) - Width 0.5 -Post Debridement Size (cm) - Depth 0.2 -Total Square Cm 0.80 -Wound/Ulcer Outcome Not Healed -Ulcer Cleansing Rinsed/ Irrigated with Saline -Foul Odor after Cleansing No -Bioengineered Tissue No -Bleeding Controlled with Pressure -Offloading Yes -Treatment Response Procedure Tolerated Well 20-right posterior heel -Time 11:42 -Correct Patient Yes -Correct Side, Site, Position Yes -Correct Procedure Yes -Procedure Performed Yes -Type of Procedure Debridement -Clinical Debridement Subcutaneous -Post Debridement Size (cm) - Length 1.4 -Post Debridement Size (cm) - Width 1.9 -Post Debridement Size (cm) - Depth 0.2 -Total Square Cm 2.66 -Wound/Ulcer Outcome Not Healed -Ulcer Cleansing Rinsed/ Irrigated with Saline -Foul Odor after Cleansing No -Bioengineered Tissue No -Bleeding Controlled with Pressure -Offloading Yes -Treatment Response Procedure Tolerated Well #1 right medial heel -Time 11:42 -Correct Patient Yes -Correct Side, Site, Position Yes -Correct Procedure Yes -Procedure Performed Yes -Type of Procedure Debridement -Clinical Debridement Subcutaneous -Post Debridement Size (cm) - Length 0.8 -Post Debridement Size (cm) - Width 1.4 -Post Debridement Size (cm) - Depth 0.2 -Total Square Cm 1.12 -Wound/Ulcer Outcome Not Healed -Ulcer Cleansing Rinsed/ Irrigated with Saline -Foul Odor after Cleansing No -Bioengineered Tissue No -Bleeding Controlled with Pressure -Offloading Yes -Treatment Response Procedure Tolerated Well [See Physician Procedure note for Specifics] Pain Scale: 0-10 Numeric [Pain] -Is Patient Pain Free? Yes Musculoskeletal: No Tenderness to Palpation of Joints or Extremities, Muscle Wasting, - - Left transmetatarsal amputation Neurological: - - Lack of normal epicritic sensation to light touch consistent with neuropathy Psych/Mental Status: Normal Affect, Appropriate Debridement Note Post-Debridement Measurements/Treatment WC - Nurse 2 - General Ulcer CM Notes Start: 10/20/18 11:10 Freq: Status: Active Protocol: Activity Type Activity Date Activity User E-Sign Co-Sign Detail Recorded Client Recorded Date Recorded By Document 10/20/18 11:40 AN [id number] 10/20/18 11:43 AN 10/20/18 11:40 Wound Center Nurse 2 #21 rt plantar -Time 11:41 -Correct Patient Yes -Correct Side, Site, Position Yes -Correct Procedure Yes -Procedure Performed Yes -Type of Procedure Debridement -Clinical Debridement Subcutaneous -Post Debridement Size (cm) - Length 1.6 -Post Debridement Size (cm) - Width 0.5 -Post Debridement Size (cm) - Depth 0.2 -Total Square Cm 0.80 -Wound/Ulcer Outcome Not Healed -Ulcer Cleansing Rinsed/ Irrigated with Saline -Foul Odor after Cleansing No -Bioengineered Tissue No -Bleeding Controlled with Pressure -Offloading Yes -Treatment Response Procedure Tolerated Well 20-right posterior heel -Time 11:42 -Correct Patient Yes -Correct Side, Site, Position Yes -Correct Procedure Yes -Procedure Performed Yes -Type of Procedure Debridement -Clinical Debridement Subcutaneous -Post Debridement Size (cm) - Length 1.4 -Post Debridement Size (cm) - Width 1.9 -Post Debridement Size (cm) - Depth 0.2 -Total Square Cm 2.66 -Wound/Ulcer Outcome Not Healed -Ulcer Cleansing Rinsed/ Irrigated with Saline -Foul Odor after Cleansing No -Bioengineered Tissue No -Bleeding Controlled with Pressure -Offloading Yes -Treatment Response Procedure Tolerated Well #1 right medial heel -Time 11:42 -Correct Patient Yes -Correct Side, Site, Position Yes -Correct Procedure Yes -Procedure Performed Yes -Type of Procedure Debridement -Clinical Debridement Subcutaneous -Post Debridement Size (cm) - Length 0.8 -Post Debridement Size (cm) - Width 1.4 -Post Debridement Size (cm) - Depth 0.2 -Total Square Cm 1.12 -Wound/Ulcer Outcome Not Healed -Ulcer Cleansing Rinsed/ Irrigated with Saline -Foul Odor after Cleansing No -Bioengineered Tissue No -Bleeding Controlled with Pressure -Offloading Yes -Treatment Response Procedure Tolerated Well Pain Scale: 0-10 Numeric Is Patient Pain Free? Yes Wound debrided: heel posterior Laterality: Right - g Wound Grade/Stage: grade 3 Type of Debridement: Excisional debridement Anesthesia Used: 5% Lidocaine Gel Depth: in the subcutaneous layer Percentage of wound debrided: 100 Instrument Used: #15 blade Tissue Removed: fibrous, devitalized subcutaneous, biofilm, slough Severity: Fat Layer Exposed Amount of bleeding with debridement: Mild Bleeding Controlled with: Pressure Patient tolerated procedure well - Additional Wound Wound debrided: heel distal wound Laterality: Right Wound Grade/Stage: grade 1 Type of Debridement: Excisional debridement Anesthesia Used: 5% Lidocaine Gel Depth: in the subcutaneous layer Percentage of wound debrided: 100 Instrument Used: #15 blade Tissue Removed: fibrous, devitalized subcutaneous, biofilm, slough Severity: Fat Layer Exposed Amount of bleeding with debridement: Mild Bleeding Controlled with: Pressure Patient tolerated procedure: Patient tolerated procedure well - Additional Wound Wound debrided: sub 1st metatarsal head Laterality: Right Wound Grade/Stage: grade 2 Type of Debridement: Excisional debridement Anesthesia Used: 5% Lidocaine Gel Depth: in the subcutaneous layer Percentage of wound debrided: 100 Instrument Used: #15 blade Tissue Removed: fibrous, devitalized subcutaneous, biofilm, slough Severity: Fat Layer Exposed Amount of bleeding with debridement: Mild Bleeding Controlled with: Pressure Patient tolerated procedure: Patient tolerated procedure well Assessment/Plan Active Problems Lymphedema (Chronic) Venous insufficiency (Chronic) Ulcer of right foot with fat layer exposed (Chronic) Walking difficulty due to ankle and foot (Chronic) Lower extremity edema (Chronic) Type 2 diabetes mellitus with diabetic polyneuropathy (Chronic) Malnutrition (Chronic) Lower extremity edema (Chronic) Edema, lower extremity (Chronic) Assessment: Right forefoot medial ulcer - stable and infection resolved. Right heel ulcer with delayed healing -stable. Foot ulcer central lateral TMA site, healed today. Diabetes with neuropathy. lymphedema and continued leg swelling. peripheral vacular disease. venous insufficiency Plan: I discussed his case and treatment plan. Subcutaneous excisional and selective debridement was performed to ulcer sites as noted in the nursing clinical panel to the right foot. To continue daily dressing changes with Aquacel. His left foot ulcer site has remained healed and it is okay if he covers it with a aperture pad and dry gauze to allow the skin remodeling. To maintain improved skin integrity by applying lac hydrin lotion to both legs daily. Continue circaid wraps bilateral legs daily; it is okay to apply tubigrip prior to application of CircAid foot wrap to better keep his wound dressings in place. To continue compression pump device daily; he is doing well with this. To proceed as previously advised with his lymphedema follow-up as advised. He is [facility] from the [facility] at this time. Farrow compression garments to promote improved continued edema management at a more proximal level was approved for right lower extremity use; to use as advised. It is noted he was not approved for the left lower extremity because he did not meet qualifying criteria of open left leg current ulcer site. To continue Lasix use as advised by primary care physician. To continue with portion control for weight loss and proper glycemic control and nutritional supplementation to optimize healing. His hemoglobin A1c went from 9.0 to 7.4. To continue strict offloading to all these ulcer sites. He has a donut offloading pillow and he was advised to use this. To follow-up with Dr. Peng as advised for the recommended bilateral intervention, venous. His recent vascular intervention in the left lower extremity is noted. All of his questions were answered. He understands he is still at risk for limb loss. I also offered him home physical therapy orders to prevent further deconditioning because it is noted he feels more unstable recently. He defers. To follow-up at the wound care center in 1 week or call sooner if he has any questions or concerns.
[2018-11-03 11:45] VITALS: BP 163/77; PULSE 59; RESP 16; TEMP 36.5; BMI 53.1
--- NOTE | 2018-11-03 12:52 | PN.PCM_ITS ---
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: Chronic Current Visit: Yes Code(s): L97.512 - Non-pressure chronic ulcer of other part of right foot with fat layer exposed (2) Walking difficulty due to ankle and foot Status: Chronic Current Visit: Yes Code(s): R26.2 - Difficulty in walking, not elsewhere classified (3) Lymphedema Status: Chronic Current Visit: Yes Code(s): I89.0 - Lymphedema, not elsewhere classified (4) Venous insufficiency Status: Chronic Current Visit: Yes Code(s): I87.2 - Venous insufficiency (chronic) (peripheral) (5) Lower extremity edema Status: Chronic Current Visit: Yes Code(s): R60.0 - Localized edema (6) Type 2 diabetes mellitus with diabetic polyneuropathy Status: Chronic Current Visit: Yes Code(s): E11.42 - Type 2 diabetes mellitus with diabetic polyneuropathy (7) Malnutrition Status: Chronic Current Visit: Yes Code(s): E46 - Unspecified protein- calorie malnutrition (8) Lower extremity edema Status: Chronic Current Visit: Yes Code(s): R60.0 - Localized edema Type of Wound Date of Service: 11/03/18 Chief Complaint: Multiple ulcers and leg swelling History of Wound: 63 year old male was seen for right heel ulcer with chronic osteomyelitis, right plantar heel ulcer. His left foot ulcer remains healed without drainage. He continues to cover the site with an aperture pad. He denies fever, chill, nausea, vomiting. He will continue dressing as advised with Aquacel. He uses the compression pumps 2-3 times a day with significant edema reduction. He completed his vascular surgery angioplasty with Dr. Peng for the left lower extremity. He has received treatment at the lymphedema clinic as well. He uses CircAid compression wraps. He has followed with Dr. Peng as advised. He wears a right cam walker boot. Progress of Wound: Improving - Physical Exam Vital Signs Temp Pulse Resp BP 97.7 F L 59 L 16 163/77 H 11/03/18 11:45 11/03/18 11:45 11/03/18 11:45 11/03/18 11:45 General: Alert, Oriented x3, Cooperative, No apparent distress Extremities: No cyanosis, Capillary Refill Less than 3 Seconds, No Calf Tenderness, Diminished Peripheral Pulses, Edema Skin: Ulcer/ Wound - No purulence, erythema, swelling, odor, infection. peripheral skin is hairless and atrophic bilateral Wound Measurements and Assessment WC - Nurse 1 - General Ulcer Measurement Start: 10/20/18 11:10 Freq: Status: Active Protocol: Activity Type Activity Date Activity User E-Sign Co-Sign Detail Recorded Client Recorded Date Recorded By Document 11/03/18 11:45 [id number] 11/03/18 11:53 NORRIS 11/03/18 11:45 Wound Center Nurse 1 [Ulcer Assessment] 25-Left TMA ulcer -Combined with other wound No -Current Size (cm) - Length 0.6 -Current Size (cm) - Width 0.1 -Current Size (cm) - Depth 0.1 -Total Square Cm 0.06 -Photo Taken Yes -Epithelialization Small 1-33% -Tunneling No -Undermining/Tunneling No -Circular Undermining No -Exudate Amt Small -Exudate Type Serosanguineous -Wound Margin Flat & Intact -Granulation Amt Medium (34-66%) -Granulation Quality Red -Slough/Fibrin Yes -Necrosis Amt Small (1-33%) -Necrotic Tissue Type Adherent Slough -Structure Exposed N/A -Texture (Susy-wound Skin Appearance) Assessed -Moisture (Susy-wound Skin Appearance Assessed, ) Maceration -Color (Susy-wound Skin Appearance) Assessed -Temperature (Susy-wound Skin No Abnormality Appearance) (Pt Warm) -Tenderness on Palpation (Susy-wound No Skin Appearance) -Ulcer Cleansing Rinsed/ Irrigated with Saline -Foul Odor after Cleansing No -Anesthetic Used 4% Lidocaine Solution #21 rt plantar -Combined with other wound No -Current Size (cm) - Length 1.2 -Current Size (cm) - Width 0.6 -Current Size (cm) - Depth 0.1 -Total Square Cm 0.72 -Photo Taken No -Epithelialization Small 1-33% -Tunneling No -Undermining/Tunneling No -Circular Undermining No -Exudate Amt Small -Exudate Type Serosanguineous -Wound Margin Flat & Intact -Granulation Amt Large (67-100%) -Granulation Quality Prentice -Slough/Fibrin Yes -Necrosis Amt Small (1-33%) -Necrotic Tissue Type Adherent Slough -Structure Exposed N/A -Texture (Susy-wound Skin Appearance) Assessed,Callus -Moisture (Susy-wound Skin Appearance Assessed, ) Maceration -Color (Susy-wound Skin Appearance) Assessed -Temperature (Susy-wound Skin No Abnormality Appearance) (Pt Warm) -Tenderness on Palpation (Susy-wound No Skin Appearance) -Ulcer Cleansing Rinsed/ Irrigated with Saline -Foul Odor after Cleansing No -Anesthetic Used 4% Lidocaine Solution 20-right posterior heel -Combined with other wound No -Current Size (cm) - Length 3 -Current Size (cm) - Width 1.1 -Current Size (cm) - Depth 0.4 -Total Square Cm 3.3 -Photo Taken No -Epithelialization Small 1-33% -Tunneling No -Undermining/Tunneling No -Circular Undermining No -Exudate Amt Small -Exudate Type Serosanguineous -Wound Margin Flat & Intact -Granulation Amt Medium (34-66%) -Granulation Quality Red -Slough/Fibrin Yes -Necrosis Amt Medium (34-66%) -Necrotic Tissue Type Adherent Slough -Structure Exposed N/A -Texture (Susy-wound Skin Appearance) Assessed,Callus -Moisture (Susy-wound Skin Appearance Assessed, ) Maceration -Color (Susy-wound Skin Appearance) Assessed -Temperature (Susy-wound Skin No Abnormality Appearance) (Pt Warm) -Tenderness on Palpation (Susy-wound No Skin Appearance) -Ulcer Cleansing Rinsed/ Irrigated with Saline -Foul Odor after Cleansing No -Anesthetic Used 4% Lidocaine Solution #1 right medial heel -Combined with other wound No -Current Size (cm) - Length 0.8 -Current Size (cm) - Width 1.3 -Current Size (cm) - Depth 0.3 -Total Square Cm 1.04 -Photo Taken No -Epithelialization Medium 34-66% -Tunneling No -Undermining/Tunneling No -Circular Undermining No -Exudate Amt Small -Exudate Type Serosanguineous -Wound Margin Flat & Intact -Granulation Amt Large (67-100%) -Granulation Quality Red -Slough/Fibrin Yes -Necrosis Amt Small (1-33%) -Necrotic Tissue Type Adherent Slough -Structure Exposed N/A -Texture (Susy-wound Skin Appearance) Assessed,Callus ,Localized Edema -Moisture (Susy-wound Skin Appearance Assessed, ) Maceration -Color (Susy-wound Skin Appearance) Assessed -Temperature (Susy-wound Skin No Abnormality Appearance) (Pt Warm) -Tenderness on Palpation (Susy-wound No Skin Appearance) -Ulcer Cleansing Rinsed/ Irrigated with Saline -Foul Odor after Cleansing No -Anesthetic Used 4% Lidocaine Solution [Edema Assessment] -Lower Limb Edema Present Yes -Right Calf (cm) 52.6 -Right Ankle (cm) 30 -Left Calf (cm) 53.0 -Left Ankle (cm) 30.4 WC - Nurse 2 - General Ulcer CM Notes Start: 10/20/18 11:10 Freq: Status: Active Protocol: Activity Type Activity Date Activity User E-Sign Co-Sign Detail Recorded Client Recorded Date Recorded By Document 11/03/18 11:59 AN [id number] 11/03/18 12:06 AN 11/03/18 11:59 Wound Center Nurse 2 [Procedure/Treatment] 25-Left TMA ulcer -Time 12:00 -Correct Patient Yes -Correct Side, Site, Position Yes -Correct Procedure Yes -Procedure Performed Yes -Type of Procedure Debridement -Clinical Debridement Subcutaneous -Post Debridement Size (cm) - Length 0.6 -Post Debridement Size (cm) - Width 0.1 -Post Debridement Size (cm) - Depth 0.1 -Total Square Cm 0.06 -Wound/Ulcer Outcome Not Healed -Ulcer Cleansing Rinsed/ Irrigated with Saline -Foul Odor after Cleansing No -Bleeding Controlled with Pressure -Offloading Yes -Type of Offloading Camwalker -Treatment Response Procedure Tolerated Well #21 rt plantar -Time 12:00 -Correct Patient Yes -Correct Side, Site, Position Yes -Correct Procedure Yes -Procedure Performed Yes -Type of Procedure Debridement -Clinical Debridement Subcutaneous -Post Debridement Size (cm) - Length 1.2 -Post Debridement Size (cm) - Width 0.6 -Post Debridement Size (cm) - Depth 0.1 -Total Square Cm 0.72 -Wound/Ulcer Outcome Not Healed -Ulcer Cleansing Rinsed/ Irrigated with Saline -Foul Odor after Cleansing No -Bioengineered Tissue No -Bleeding Controlled with Pressure -Offloading Yes -Type of Offloading Camwalker 20-right posterior heel -Time 12:01 -Correct Patient Yes -Correct Side, Site, Position Yes -Correct Procedure Yes -Procedure Performed Yes -Type of Procedure Debridement -Clinical Debridement Subcutaneous -Post Debridement Size (cm) - Length 3.0 -Post Debridement Size (cm) - Width 1.1 -Post Debridement Size (cm) - Depth 0.4 -Total Square Cm 3.30 -Wound/Ulcer Outcome Not Healed -Ulcer Cleansing Rinsed/ Irrigated with Saline -Foul Odor after Cleansing No -Bioengineered Tissue No -Bleeding Controlled with Pressure -Offloading Yes -Type of Offloading Camwalker -Treatment Response Procedure Tolerated Well #1 right medial heel -Time 12:01 -Correct Patient Yes -Correct Side, Site, Position Yes -Correct Procedure Yes -Procedure Performed Yes -Type of Procedure Debridement -Clinical Debridement Subcutaneous -Post Debridement Size (cm) - Length 0.8 -Post Debridement Size (cm) - Width 1.3 -Post Debridement Size (cm) - Depth 0.3 -Total Square Cm 1.04 -Wound/Ulcer Outcome Not Healed -Ulcer Cleansing Rinsed/ Irrigated with Saline -Foul Odor after Cleansing No -Bioengineered Tissue No -Bleeding Controlled with Pressure -Offloading Yes -Type of Offloading Camwalker -Treatment Response Procedure Tolerated Well [See Physician Procedure note for Specifics] Pain Scale: 0-10 Numeric [Pain] -Is Patient Pain Free? Yes Musculoskeletal: No Tenderness to Palpation of Joints or Extremities, Muscle Wasting, - - left transmetatarsal amputation Neurological: - - Lack of normal epicritic sensation on touch consistent with neuropathy Psych/Mental Status: Normal Affect, Appropriate Debridement Note Post-Debridement Measurements/Treatment WC - Nurse 2 - General Ulcer CM Notes Start: 10/20/18 11:10 Freq: Status: Active Protocol: Activity Type Activity Date Activity User E-Sign Co-Sign Detail Recorded Client Recorded Date Recorded By Document 10/20/18 11:40 AN [id number] 10/20/18 11:43 AN Document 11/03/18 11:59 AN [id number] 11/03/18 12:06 AN 10/20/18 11/03/18 11:40 11:59 Wound Center Nurse 2 25-Left TMA ulcer -Time 12:00 -Correct Patient Yes -Correct Side, Site, Position Yes -Correct Procedure Yes -Procedure Performed Yes -Type of Procedure Debridement -Clinical Debridement Subcutaneous -Post Debridement Size (cm) - Length 0.6 -Post Debridement Size (cm) - Width 0.1 -Post Debridement Size (cm) - Depth 0.1 -Total Square Cm 0.06 -Wound/Ulcer Outcome Not Healed -Ulcer Cleansing Rinsed/ Irrigated with Saline -Foul Odor after Cleansing No -Bleeding Controlled with Pressure -Offloading Yes -Type of Offloading Camwalker -Treatment Response Procedure Tolerated Well #21 rt plantar -Time 11:41 12:00 -Correct Patient Yes Yes -Correct Side, Site, Position Yes Yes -Correct Procedure Yes Yes -Procedure Performed Yes Yes -Type of Procedure Debridement Debridement -Clinical Debridement Subcutaneous Subcutaneous -Post Debridement Size (cm) - Length 1.6 1.2 -Post Debridement Size (cm) - Width 0.5 0.6 -Post Debridement Size (cm) - Depth 0.2 0.1 -Total Square Cm 0.80 0.72 -Wound/Ulcer Outcome Not Healed Not Healed -Ulcer Cleansing Rinsed/ Rinsed/ Irrigated with Irrigated with Saline Saline -Foul Odor after Cleansing No No -Bioengineered Tissue No No -Bleeding Controlled with Pressure Pressure -Offloading Yes Yes -Type of Offloading Camwalker -Treatment Response Procedure Tolerated Well 20-right posterior heel -Time 11:42 12:01 -Correct Patient Yes Yes -Correct Side, Site, Position Yes Yes -Correct Procedure Yes Yes -Procedure Performed Yes Yes -Type of Procedure Debridement Debridement -Clinical Debridement Subcutaneous Subcutaneous -Post Debridement Size (cm) - Length 1.4 3.0 -Post Debridement Size (cm) - Width 1.9 1.1 -Post Debridement Size (cm) - Depth 0.2 0.4 -Total Square Cm 2.66 3.30 -Wound/Ulcer Outcome Not Healed Not Healed -Ulcer Cleansing Rinsed/ Rinsed/ Irrigated with Irrigated with Saline Saline -Foul Odor after Cleansing No No -Bioengineered Tissue No No -Bleeding Controlled with Pressure Pressure -Offloading Yes Yes -Type of Offloading Camwalker -Treatment Response Procedure Procedure Tolerated Well Tolerated Well #1 right medial heel -Time 11:42 12:01 -Correct Patient Yes Yes -Correct Side, Site, Position Yes Yes -Correct Procedure Yes Yes -Procedure Performed Yes Yes -Type of Procedure Debridement Debridement -Clinical Debridement Subcutaneous Subcutaneous -Post Debridement Size (cm) - Length 0.8 0.8 -Post Debridement Size (cm) - Width 1.4 1.3 -Post Debridement Size (cm) - Depth 0.2 0.3 -Total Square Cm 1.12 1.04 -Wound/Ulcer Outcome Not Healed Not Healed -Ulcer Cleansing Rinsed/ Rinsed/ Irrigated with Irrigated with Saline Saline -Foul Odor after Cleansing No No -Bioengineered Tissue No No -Bleeding Controlled with Pressure Pressure -Offloading Yes Yes -Type of Offloading Camwalker -Treatment Response Procedure Procedure Tolerated Well Tolerated Well Pain Scale: 0-10 Numeric Is Patient Pain Free? Yes Yes Wound debrided: heel (posterior) Laterality: Right Wound Grade/Stage: grade 3 Type of Debridement: Excisional debridement Anesthesia Used: 5% Lidocaine Gel Depth: in the subcutaneous layer Percentage of wound debrided: 100 Instrument Used: #15 blade Tissue Removed: fibrous, devitalized subcutaneous, biofilm, slough Severity: Fat Layer Exposed Amount of bleeding with debridement: Mild Bleeding Controlled with: Pressure Patient tolerated procedure well - Additional Wound Wound debrided: heel (distal) Laterality: Right Wound Grade/Stage: grade 1 Type of Debridement: Excisional debridement Anesthesia Used: 4% Lidocaine Solution Depth: in the subcutaneous layer Percentage of wound debrided: 100 Instrument Used: #15 blade Tissue Removed: fibrous, devitalized subcutaneous, biofilm, slough Severity: Fat Layer Exposed Amount of bleeding with debridement: Mild Bleeding Controlled with: Pressure Patient tolerated procedure: Patient tolerated procedure well - Additional Wound Wound debrided: sub 1st metatarsal head Laterality: Right Wound Grade/Stage: grade 1 Type of Debridement: Excisional debridement Anesthesia Used: 5% Lidocaine Gel Depth: in the subcutaneous layer Percentage of wound debrided: 100 Instrument Used: #15 blade Tissue Removed: fibrous, devitalized subcutaneous, biofilm, slough Severity: Fat Layer Exposed Amount of bleeding with debridement: Mild Bleeding Controlled with: Pressure Patient tolerated procedure: Patient tolerated procedure well Assessment/Plan Active Problems Lymphedema (Chronic) Venous insufficiency (Chronic) Ulcer of right foot with fat layer exposed (Chronic) Walking difficulty due to ankle and foot (Chronic) Lower extremity edema (Chronic) Type 2 diabetes mellitus with diabetic polyneuropathy (Chronic) Malnutrition (Chronic) Lower extremity edema (Chronic) Edema, lower extremity (Chronic) Assessment: Right forefoot medial ulcer - stable and infection resolved. Right heel ulcer with delayed healing -stable. Foot ulcer central lateral TMA site, healed today. Diabetes with neuropathy. lymphedema and continued leg swelling. peripheral vacular disease. venous insufficiency Plan: I discussed his case and treatment plan. Subcutaneous excisional and selective debridement was performed to ulcer sites as noted in the nursing clinical panel to the right foot. To continue daily dressing changes with Aq uacel. His left foot ulcer site has remained healed and it is okay if he covers it with a aperture pad and dry gauze to allow the skin remodeling. To maintain improved skin integrity by applying lac hydrin lotion to both legs daily. Continue circaid wraps bilateral legs daily; it is okay to apply tubigrip prior to application of CircAid foot wrap to better keep his wound dressings in place. To continue compression pump device daily; he is doing well with this. To proceed as previously advised with his lymphedema follow-up as advised. He is discharged from the [facility] at this time. Farrow compression garments to promote improved continued edema management at a more proximal level was approved for right lower extremity use; to use as advised. It is noted he was not approved for the left lower extremity because he did not meet qualifying criteria of open left leg current ulcer site. To continue Lasix use as advised by primary care physician. To continue with portion control for weight loss and proper glycemic control and nutritional supplementation to optimize healing. His hemoglobin A1c went from 9.0 to 7.4. To continue strict offloading to all these ulcer sites. He has a donut offloading pillow and he was advised to use this. To follow-up with Dr. Peng as advised for the recommended bilateral intervention, venous. His recent vascular intervention in the left lower extremity is noted. All of his questions were answered. He understands he is still at risk for limb loss. I also offered him home physical therapy orders to prevent further deconditioning because it is noted he feels more unstable recently. To follow-up at the wound care center in 1 week or call sooner if he has any questions or concerns.
== END 2018-11-13 23:59 ==
LOC: WC 11:30
PROVIDERS: Family Provider Family Medicine; PCP Family Medicine; Referring Provider Podiatrist; Visit Provider Podiatrist
DX: E11.621 Type 2 diabetes mellitus with foot ulcer (principal); I89.0 Lymphedema, not elsewhere classified; I87.2 Venous insufficiency (chronic) (peripheral); R60.0 Localized edema; E11.42 Type 2 diabetes mellitus with diabetic polyneuropathy; R26.2 Difficulty in walking, not elsewhere classified; L97.512 Non-pressure chronic ulcer of other part of right foot with fat layer exposed; M86.671 Other chronic osteomyelitis, right ankle and foot; E11.69 Type 2 diabetes mellitus with other specified complication; L97.412 Non-pressure chronic ulcer of right heel and midfoot with fat layer exposed
CPT/HCPCS: 11042

== ENCOUNTER 2018-12-01 11:00 | Outpatient (RCR) | payer MEDICARE, MEDICAID, SELFPAY ==
[2018-11-14 00:28] VITALS: BP 163/77; PULSE 59; RESP 16; TEMP 36.5
[2018-11-24 11:19] VITALS: BP 153/79; PULSE 52; RESP 16; TEMP 36.3; BMI 53.1
--- NOTE | 2018-11-24 13:40 | PCM.WC.PN ---
(1) Lymphedema Status: Chronic Current Visit: Yes Code(s): I89.0 - Lymphedema, not elsewhere classified (2) Venous insufficiency Status: Chronic Current Visit: Yes Code(s): I87.2 - Venous insufficiency (chronic) (peripheral) (3) Peripheral vascular disease Status: Chronic Current Visit: Yes Code(s): I73.9 - Peripheral vascular disease, unspecified (4) Ulcer of right foot with fat layer exposed Status: Chronic Current Visit: Yes Code(s): L97.512 - Non-pressure chronic ulcer of other part of right foot with fat layer exposed Type of Wound Date of Service: 11/24/18 Chief Complaint: Multiple ulcers and leg swelling History of Wound: 63 year old male was seen for right heel ulcer with chronic osteomyelitis, right plantar heel ulcer. His left foot ulcer remains healed without drainage. He continues to cover the site with an aperture pad. He denies fever, chill, nausea, vomiting. He will continue dressing as advised with Aquacel. He uses the compression pumps 2-3 times a day with significant edema reduction. He completed his vascular surgery angioplasty with Dr. Peng for the left lower extremity. He has received treatment at the lymphedema clinic as well. He uses CircAid compression wraps. He has followed with Dr. Peng as advised. He wears a right cam walker boot. Progress of Wound: Improving - Physical Exam Vital Signs Temp Pulse Resp BP 97.3 F L 52 L 16 153/79 H 11/24/18 11:19 11/24/18 11:19 11/24/18 11:19 11/24/18 11:19 General: Alert, Oriented x3, Cooperative, No apparent distress Extremities: No cyanosis, Capillary Refill Less than 3 Seconds, No Calf Tenderness, Diminished Peripheral Pulses, Edema Skin: Ulcer/ Wound - No purulence, erythema, streaking, odor, infection. Atrophic skin is noted Wound Measurements and Assessment WC - Nurse 1 - General Ulcer Measurement Start: 11/24/18 11:19 Freq: Status: Active Protocol: Activity Type Activity Date Activity User E-Sign Co-Sign Detail Recorded Client Recorded Date Recorded By Document 11/24/18 11:19 [facility] [id number] 11/24/18 11:35 [facility] 11/24/18 11:19 Wound Center Nurse 1 [Ulcer Assessment] 25-Left TMA ulcer -Combined with other wound No -Current Size (cm) - Length 1.4 -Current Size (cm) - Width 0.5 -Current Size (cm) - Depth 0.1 -Total Square Cm 0.70 -Date of Last Picture (Recall this 11/24/18 field) -Photo Taken Yes -Epithelialization None Present -Tunneling No -Undermining/Tunneling No -Circular Undermining No -Exudate Amt Small -Exudate Type Serous -Wound Margin Flat & Intact -Granulation Amt Large (67-100%) -Granulation Quality [place] -Slough/Fibrin No -Necrosis Amt None Present (0 %) -Texture (Susy-wound Skin Appearance) Assessed, Scarring -Moisture (Susy-wound Skin Appearance Assessed, ) Maceration,Dry/ Scaly -Color (Susy-wound Skin Appearance) Assessed,Palor -Temperature (Susy-wound Skin No Abnormality Appearance) (Pt Warm) -Tenderness on Palpation (Susy-wound No Skin Appearance) -Ulcer Cleansing soap and water -Foul Odor after Cleansing No -Anesthetic Used 4% Lidocaine Solution #21 rt plantar -Combined with other wound No -Current Size (cm) - Length 1.2 -Current Size (cm) - Width 0.6 -Current Size (cm) - Depth 0.2 -Total Square Cm 0.72 -Date of Last Picture (Recall this 11/24/18 field) -Photo Taken Yes -Epithelialization None Present -Tunneling No -Undermining/Tunneling No -Circular Undermining No -Exudate Amt Small -Exudate Type Serosanguineous -Wound Margin Distinct, Outline Attached -Granulation Amt Large (67-100%) -Granulation Quality Red -Slough/Fibrin Yes -Necrosis Amt Small (1-33%) -Necrotic Tissue Type Adherent Slough -Texture (Susy-wound Skin Appearance) Callus -Moisture (Susy-wound Skin Appearance Assessed,Dry/ ) Scaly -Color (Susy-wound Skin Appearance) Assessed -Temperature (Susy-wound Skin No Abnormality Appearance) (Pt Warm) -Tenderness on Palpation (Susy-wound No Skin Appearance) -Ulcer Cleansing soap and water -Foul Odor after Cleansing No -Anesthetic Used 4% Lidocaine Solution 20-right posterior heel -Combined with other wound No -Current Size (cm) - Length 1 -Current Size (cm) - Width 1.5 -Current Size (cm) - Depth 0.3 -Total Square Cm 1.5 -Date of Last Picture (Recall this 11/24/18 field) -Photo Taken Yes -Epithelialization None Present -Tunneling No -Undermining/Tunneling No -Circular Undermining No -Exudate Amt Small -Exudate Type Serosanguineous -Wound Margin Distinct, Outline Attached -Granulation Amt Large (67-100%) -Granulation Quality [place] -Slough/Fibrin Yes -Necrosis Amt Small (1-33%) -Necrotic Tissue Type Adherent Slough -Texture (Susy-wound Skin Appearance) Assessed,Callus ,Scarring -Moisture ([place]-wound Skin Appearance Assessed,Dry/ ) Scaly -Color (Susy-wound Skin Appearance) Assessed -Temperature (Susy-wound Skin No Abnormality Appearance) (Pt Warm) -Tenderness on Palpation (Susy-wound No Skin Appearance) -Ulcer Cleansing soap and water -Foul Odor after Cleansing No -Anesthetic Used 4% Lidocaine Solution #1 right medial heel -Combined with other wound No -Current Size (cm) - Length 1 -Current Size (cm) - Width 1.9 -Current Size (cm) - Depth 0.3 -Total Square Cm 1.9 -Date of Last Picture (Recall this 11/24/18 field) -Photo Taken Yes -Epithelialization None Present -Tunneling No -Undermining/Tunneling No -Circular Undermining No -Exudate Amt Small -Exudate Type Serosanguineous -Wound Margin Distinct, Outline Attached -Granulation Amt Large (67-100%) -Granulation Quality [place] -Slough/Fibrin Yes -Necrosis Amt Small (1-33%) -Necrotic Tissue Type Adherent Slough -Texture (Susy-wound Skin Appearance) Assessed,Callus ,Scarring -Moisture (Susy-wound Skin Appearance Assessed,Dry/ ) Scaly -Color (Susy-wound Skin Appearance) Assessed -Temperature (Susy-wound Skin No Abnormality Appearance) (Pt Warm) -Tenderness on Palpation (Susy-wound No Skin Appearance) -Ulcer Cleansing soap and water -Foul Odor after Cleansing No -Anesthetic Used 4% Lidocaine Solution [Edema Assessment] -Lower Limb Edema Present Yes -Right Calf (cm) 51.4 -Right Ankle (cm) 28.7 -Left Calf (cm) 52 -Left Ankle (cm) 28.8 WC - Nurse 2 - General Ulcer CM Notes Start: 11/24/18 11:19 Freq: Status: Active Protocol: Activity Type Activity Date Activity User E-Sign Co-Sign Detail Recorded Client Recorded Date Recorded By Document 11/24/18 11:44 AN [id number] 11/24/18 11:48 AN 11/24/18 11:44 Wound Center Nurse 2 [Procedure/Treatment] 25-Left TMA ulcer -Time 11:44 -Correct Patient Yes -Correct Side, Site, Position Yes -Correct Procedure Yes -Procedure Performed No -Post Debridement Size (cm) - Length 0.2 -Post Debridement Size (cm) - Width 0.3 -Post Debridement Size (cm) - Depth 0.1 -Total Square Cm 0.06 -Wound/Ulcer Outcome Not Healed #21 rt plantar -Time 11:44 -Correct Patient Yes -Correct Side, Site, Position Yes -Correct Procedure Yes -Procedure Performed Yes -Type of Procedure Debridement -Clinical Debridement Subcutaneous -Post Debridement Size (cm) - Length 1.3 -Post Debridement Size (cm) - Width 0.7 -Post Debridement Size (cm) - Depth 0.2 -Total Square Cm 0.91 -Wound/Ulcer Outcome Not Healed -Bleeding Controlled with Pressure -Offloading Yes -Type of Offloading Camwalker -Treatment Response Procedure Tolerated Well 20-right posterior heel -Time 11:44 -Correct Patient Yes -Correct Side, Site, Position Yes -Correct Procedure Yes -Procedure Performed Yes -Type of Procedure Debridement -Clinical Debridement Subcutaneous -Post Debridement Size (cm) - Length 1.1 -Post Debridement Size (cm) - Width 1.6 -Post Debridement Size (cm) - Depth 0.3 -Total Square Cm 1.76 -Wound/Ulcer Outcome Not Healed -Bleeding Controlled with Pressure -Offloading Yes -Type of Offloading Camwalker -Treatment Response Procedure Tolerated Well #1 right medial heel -Time 11:45 -Correct Patient Yes -Correct Side, Site, Position Yes -Correct Procedure Yes -Procedure Performed Yes -Type of Procedure Debridement -Clinical Debridement Subcutaneous -Post Debridement Size (cm) - Length 1.1 -Post Debridement Size (cm) - Width 2.0 -Post Debridement Size (cm) - Depth 0.3 -Total Square Cm 2.20 -Wound/Ulcer Outcome Not Healed -Ulcer Cleansing Rinsed/ Irrigated with Saline -Foul Odor after Cleansing No -Bioengineered Tissue No -Bleeding Controlled with Pressure -Offloading Yes -Type of Offloading Camwalker -Treatment Response Procedure Tolerated Well [See Physician Procedure note for Specifics] Pain Scale: 0-10 Numeric [Pain] -Is Patient Pain Free? Yes Musculoskeletal: No Tenderness to Palpation of Joints or Extremities, Muscle Wasting, - - Left transmetatarsal amputation site remains healed. Compartment soft to palpate right lower extremity Neurological: - - Lack of normal epicritic sensation consistent with neuropathy bilateral lower extremities Psych/Mental Status: Normal Affect, Appropriate Debridement Note Post-Debridement Measurements/Treatment WC - Nurse 2 - General Ulcer CM Notes Start: 11/24/18 11:19 Freq: Status: Active Protocol: Activity Type Activity Date Activity User E-Sign Co-Sign Detail Recorded Client Recorded Date Recorded By Document 11/24/18 11:44 AN [id number] 11/24/18 11:48 AN 11/24/18 11:44 Wound Center Nurse 2 25-Left TMA ulcer -Time 11:44 -Correct Patient Yes -Correct Side, Site, Position Yes -Correct Procedure Yes -Procedure Performed No -Post Debridement Size (cm) - Length 0.2 -Post Debridement Size (cm) - Width 0.3 -Post Debridement Size (cm) - Depth 0.1 -Total Square Cm 0.06 -Wound/Ulcer Outcome Not Healed #21 rt plantar -Time 11:44 -Correct Patient Yes -Correct Side, Site, Position Yes -Correct Procedure Yes -Procedure Performed Yes -Type of Procedure Debridement -Clinical Debridement Subcutaneous -Post Debridement Size (cm) - Length 1.3 -Post Debridement Size (cm) - Width 0.7 -Post Debridement Size (cm) - Depth 0.2 -Total Square Cm 0.91 -Wound/Ulcer Outcome Not Healed -Bleeding Controlled with Pressure -Offloading Yes -Type of Offloading Camwalker -Treatment Response Procedure Tolerated Well 20-right posterior heel -Time 11:44 -Correct Patient Yes -Correct Side, Site, Position Yes -Correct Procedure Yes -Procedure Performed Yes -Type of Procedure Debridement -Clinical Debridement Subcutaneous -Post Debridement Size (cm) - Length 1.1 -Post Debridement Size (cm) - Width 1.6 -Post Debridement Size (cm) - Depth 0.3 -Total Square Cm 1.76 -Wound/Ulcer Outcome Not Healed -Bleeding Controlled with Pressure -Offloading Yes -Type of Offloading Camwalker -Treatment Response Procedure Tolerated Well #1 right medial heel -Time 11:45 -Correct Patient Yes -Correct Side, Site, Position Yes -Correct Procedure Yes -Procedure Performed Yes -Type of Procedure Debridement -Clinical Debridement Subcutaneous -Post Debridement Size (cm) - Length 1.1 -Post Debridement Size (cm) - Width 2.0 -Post Debridement Size (cm) - Depth 0.3 -Total Square Cm 2.20 -Wound/Ulcer Outcome Not Healed -Ulcer Cleansing Rinsed/ Irrigated with Saline -Foul Odor after Cleansing No -Bioengineered Tissue No -Bleeding Controlled with Pressure -Offloading Yes -Type of Offloading Camwalker -Treatment Response Procedure Tolerated Well Pain Scale: 0-10 Numeric Is Patient Pain Free? Yes Wound debrided: heel (posterior plantar) Laterality: Right Wound Grade/Stage: grade 3 Type of Debridement: Excisional debridement Anesthesia Used: 5% Lidocaine Gel Depth: in the subcutaneous layer Percentage of wound debrided: 100 Instrument Used: #15 blade Tissue Removed: fibrous, devitalized subcutaneous, biofilm, slough Severity: Fat Layer Exposed Amount of bleeding with debridement: Mild Bleeding Controlled with: Pressure Patient tolerated procedure well - Additional Wound Wound debrided: heel (distal plantar) Laterality: Right Wound Grade/Stage: grade 1 Type of Debridement: Excisional debridement Anesthesia Used: 5% Lidocaine Gel Depth: in the subcutaneous layer Percentage of wound debrided: 100 Instrument Used: #15 blade Tissue Removed: fibrous, devitalized subcutaneous, biofilm, slough Severity: Fat Layer Exposed Amount of bleeding with debridement: Mild Bleeding Controlled with: Pressure Patient tolerated procedure: Patient tolerated procedure well - Additional Wound Wound debrided: sub 1 metatarsal head Laterality: Right Wound Grade/Stage: grade 2 Type of Debridement: Excisional debridement Anesthesia Used: 5% Lidocaine Gel Depth: in the subcutaneous layer Percentage of wound debrided: 100 Instrument Used: #15 blade Tissue Removed: fibrous, devitalized subcutaneous, biofilm, slough Severity: Fat Layer Exposed Amount of bleeding with debridement: Mild Bleeding Controlled with: Pressure Assessment/Plan Active Problems Lymphedema (Chronic) Venous insufficiency (Chronic) Peripheral vascular disease (Chronic) Ulcer of right foot with fat layer exposed (Chronic) Assessment: Right forefoot medial ulcer - stable and infection resolved. Right heel ulcer with delayed healing -stable. Foot ulcer central lateral TMA site, healed today. Diabetes with neuropathy. lymphedema and continued leg swelling. peripheral vacular disease. venous insufficiency Plan: I discussed his case and treatment plan. Subcutaneous excisional debridement was performed to ulcer sites as noted in the nursing clinical panel to the right foot. To continue daily dressing changes with Aquacel. His left foot ulcer site has remained healed and it is okay if he covers it with a aperture pad and dry gauze to allow the skin remodeling. To maintain improved skin integrity by applying lac hydrin lotion to both legs daily. Continue circaid wraps bilateral legs daily; it is okay to apply tubigrip prior to application of CircAid foot wrap to better keep his wound dressings in place. To continue compression pump device daily; he is doing well with this. To proceed as previously advised with his lymphedema follow-up as advised. He is [facility] from the [facility] at this time. [place] compression garments to promote improved continued edema management at a more proximal level was approved for right lower extremity use; to use as advised. It is noted he was not approved for the left lower extremity because he did not meet qualifying criteria of open left leg current ulcer site. To continue Lasix use as advised by primary care physician. To continue with portion control for weight loss and proper glycemic control and nutritional supplementation to optimize healing. His hemoglobin A1c went from 9.0 to 7.4. To continue strict offloading to all these ulcer sites. He has a donut offloading pillow and he was advised to use this. To follow-up with Dr. Peng as advised for the recommended bilateral intervention, venous. His recent vascular intervention in the left lower extremity is noted. All of his questions were answered. He understands he is still at risk for limb loss. I also offered him home physical therapy orders to prevent further deconditioning because it is noted he feels more unstable recently. To follow-up at the wound care center in 1 week or call sooner if he has any questions or concerns.
[2018-12-01 11:14] VITALS: BP 174/75; PULSE 46; RESP 18; TEMP 36.3; BMI 53.1
--- NOTE | 2018-12-01 14:55 | PN.PCM_ITS ---
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: Chronic Current Visit: Yes Code(s): L97.512 - Non-pressure chronic ulcer of other part of right foot with fat layer exposed (2) Lymphedema Status: Chronic Current Visit: Yes Code(s): I89.0 - Lymphedema, not elsewhere classified (3) Venous insufficiency Status: Chronic Current Visit: Yes Code(s): I87.2 - Venous insufficiency (chronic) (peripheral) (4) Peripheral vascular disease Status: Chronic Current Visit: Yes Code(s): I73.9 - Peripheral vascular disease, unspecified Type of Wound Date of Service: 12/01/18 Chief Complaint: Multiple ulcers and leg swelling History of Wound: 63 year old male was seen for right heel ulcer with chronic osteomyelitis, right plantar heel ulcer. His left foot ulcer remains healed without drainage. He continues to cover the site with an aperture pad. He denies fever, chill, nausea, vomiting. He will continue dressing as advised with Aquacel. He uses the compression pumps 2-3 times a day with significant edema reduction. He completed his vascular surgery angioplasty with Dr. Peng for the left lower extremity. He has received treatment at the lymphedema clinic as well. He uses CircAid compression wraps. He has followed with Dr. Peng as advised. He wears a right cam walker boot. Progress of Wound: stable - Physical Exam Vital Signs Temp Pulse Resp BP 97.3 F L 46 L 18 174/75 H 12/01/18 11:14 12/01/18 11:14 12/01/18 11:14 12/01/18 11:14 General: Alert, Oriented x3, Cooperative, No apparent distress HEENT: Atraumatic Extremities: No cyanosis, Capillary Refill Less than 3 Seconds, No Calf Tenderness - negative liberty And Simmons sign bilateral, Diminished Peripheral Pulses, Edema Skin: Ulcer/ Wound - No purulence, erythema, streaking, odor, infection. The ulcers have pale granular bases with peripheral callus formation. There is peripheral atrophic and hairless skin. The left foot has full epithelialization and it is noted that his previous transmetatarsal amputation site skin is friable and atrophic. Wound Measurements and Assessment WC - Nurse 1 - General Ulcer Measurement Start: 11/24/18 11:19 Freq: Status: Active Protocol: Activity Type Activity Date Activity User E-Sign Co-Sign Detail Recorded Client Recorded Date Recorded By Document 12/01/18 11:14 VIDA [id number] 12/01/18 11:25 VIDA 12/01/18 11:14 Wound Center Nurse 1 [Ulcer Assessment] 25-Left TMA ulcer -Current Size (cm) - Length 0.1 -Current Size (cm) - Width 0.1 -Current Size (cm) - Depth 1 -Total Square Cm 0.01 -Photo Taken No -Exudate Amt None Present -Wound Margin Thickened -Granulation Amt Large (67-100%) -Granulation Quality Shafer -Necrosis Amt None Present (0 %) -Structure Exposed N/A -Texture (Susy-wound Skin Appearance) Scarring -Moisture (Susy-wound Skin Appearance Dry/Scaly ) -Color (Susy-wound Skin Appearance) Hemosiderin Staining -Temperature (Susy-wound Skin No Abnormality Appearance) (Pt Warm) -Tenderness on Palpation (Susy-wound No Skin Appearance) -Ulcer Cleansing Wound Cleanser -Foul Odor after Cleansing No #21 rt plantar -Current Size (cm) - Length 1.1 -Current Size (cm) - Width 0.8 -Current Size (cm) - Depth 0.1 -Total Square Cm 0.88 -Photo Taken No -Exudate Amt Small -Exudate Type Serosanguineous -Wound Margin Distinct, Outline Attached -Granulation Amt Large (67-100%) -Granulation Quality Shafer -Necrosis Amt Small (1-33%) -Necrotic Tissue Type Adherent Slough -Structure Exposed N/A -Texture (Susy-wound Skin Appearance) Scarring -Moisture (Susy-wound Skin Appearance Dry/Scaly ) -Color (Susy-wound Skin Appearance) Hemosiderin Staining -Temperature (Susy-wound Skin No Abnormality Appearance) (Pt Warm) -Tenderness on Palpation (Susy-wound No Skin Appearance) -Ulcer Cleansing Wound Cleanser -Foul Odor after Cleansing No -Anesthetic Used 5% Lidocaine Gel 20-right posterior heel -Current Size (cm) - Length 1.1 -Current Size (cm) - Width 1.8 -Current Size (cm) - Depth 0.2 -Total Square Cm 1.98 -Photo Taken No -Exudate Amt Small -Exudate Type Serosanguineous -Wound Margin Thickened -Granulation Amt Large (67-100%) -Granulation Quality Shafer -Necrosis Amt Small (1-33%) -Necrotic Tissue Type Adherent Slough -Structure Exposed N/A -Texture (Susy-wound Skin Appearance) Scarring -Moisture (Susy-wound Skin Appearance Dry/Scaly ) -Color (Susy-wound Skin Appearance) Hemosiderin Staining -Temperature (Susy-wound Skin No Abnormality Appearance) (Pt Warm) -Tenderness on Palpation (Susy-wound No Skin Appearance) -Ulcer Cleansing Wound Cleanser -Foul Odor after Cleansing No -Anesthetic Used 4% Lidocaine Solution #1 right medial heel -Current Size (cm) - Length 0.8 -Current Size (cm) - Width 1.3 -Current Size (cm) - Depth 0.2 -Total Square Cm 1.04 -Photo Taken No -Exudate Amt Small -Exudate Type Serosanguineous -Wound Margin Thickened -Granulation Amt Large (67-100%) -Granulation Quality Shafer -Necrosis Amt Small (1-33%) -Necrotic Tissue Type Adherent Slough -Structure Exposed N/A -Texture (Susy-wound Skin Appearance) Scarring -Moisture (Susy-wound Skin Appearance Dry/Scaly ) -Color (Susy-wound Skin Appearance) Hemosiderin Staining -Temperature (Susy-wound Skin No Abnormality Appearance) (Pt Warm) -Tenderness on Palpation (Susy-wound No Skin Appearance) -Ulcer Cleansing Wound Cleanser -Foul Odor after Cleansing No -Anesthetic Used 5% Lidocaine Gel [Edema Assessment] -Right Calf (cm) 52.5 -Right Ankle (cm) 28.5 -Left Calf (cm) 49 -Left Ankle (cm) 28.5 Musculoskeletal: No Tenderness to Palpation of Joints or Extremities, Muscle Wasting Neurological: - - Lack of normal epicritic sensation light touch is consistent with neuropathy status Psych/Mental Status: Normal Affect, Appropriate Debridement Note Post-Debridement Measurements/Treatment WC - Nurse 2 - General Ulcer CM Notes Start: 11/24/18 11:19 Freq: Status: Active Protocol: Activity Type Activity Date Activity User E-Sign Co-Sign Detail Recorded Client Recorded Date Recorded By Document 11/24/18 11:44 AN [id number] 11/24/18 11:48 AN 11/24/18 11:44 Wound Center Nurse 2 25-Left TMA ulcer -Time 11:44 -Correct Patient Yes -Correct Side, Site, Position Yes -Correct Procedure Yes -Procedure Performed No -Post Debridement Size (cm) - Length 0.2 -Post Debridement Size (cm) - Width 0.3 -Post Debridement Size (cm) - Depth 0.1 -Total Square Cm 0.06 -Wound/Ulcer Outcome Not Healed #21 rt plantar -Time 11:44 -Correct Patient Yes -Correct Side, Site, Position Yes -Correct Procedure Yes -Procedure Performed Yes -Type of Procedure Debridement -Clinical Debridement Subcutaneous -Post Debridement Size (cm) - Length 1.3 -Post Debridement Size (cm) - Width 0.7 -Post Debridement Size (cm) - Depth 0.2 -Total Square Cm 0.91 -Wound/Ulcer Outcome Not Healed -Bleeding Controlled with Pressure -Offloading Yes -Type of Offloading Camwalker -Treatment Response Procedure Tolerated Well 20-right posterior heel -Time 11:44 -Correct Patient Yes -Correct Side, Site, Position Yes -Correct Procedure Yes -Procedure Performed Yes -Type of Procedure Debridement -Clinical Debridement Subcutaneous -Post Debridement Size (cm) - Length 1.1 -Post Debridement Size (cm) - Width 1.6 -Post Debridement Size (cm) - Depth 0.3 -Total Square Cm 1.76 -Wound/Ulcer Outcome Not Healed -Bleeding Controlled with Pressure -Offloading Yes -Type of Offloading Camwalker -Treatment Response Procedure Tolerated Well #1 right medial heel -Time 11:45 -Correct Patient Yes -Correct Side, Site, Position Yes -Correct Procedure Yes -Procedure Performed Yes -Type of Procedure Debridement -Clinical Debridement Subcutaneous -Post Debridement Size (cm) - Length 1.1 -Post Debridement Size (cm) - Width 2.0 -Post Debridement Size (cm) - Depth 0.3 -Total Square Cm 2.20 -Wound/Ulcer Outcome Not Healed -Ulcer Cleansing Rinsed/ Irrigated with Saline -Foul Odor after Cleansing No -Bioengineered Tissue No -Bleeding Controlled with Pressure -Offloading Yes -Type of Offloading Camwalker -Treatment Response Procedure Tolerated Well Pain Scale: 0-10 Numeric Is Patient Pain Free? Yes Wound debrided: sub first metatarsal head Laterality: Right Wound Grade/Stage: grade 2 Type of Debridement: Excisional debridement Anesthesia Used: 5% Lidocaine Gel Depth: in the subcutaneous layer Percentage of wound debrided: 100 Instrument Used: #15 blade Tissue Removed: fibrous, devitalized subcutaneous, biofilm, slough Severity: Fat Layer Exposed Amount of bleeding with debridement: Mild Bleeding Controlled with: Pressure Patient tolerated procedure well - Additional Wound Wound Grade/Stage: grade 1 - Additional Wound Wound debrided: heel (posterior) Laterality: Right Wound Grade/Stage: grade 3 Type of Debridement: Excisional debridement Anesthesia Used: 5% Lidocaine Gel Depth: in the subcutaneous layer Percentage of wound debrided: 100 Instrument Used: #15 blade Tissue Removed: fibrous, devitalized subcutaneous, biofilm, slough Severity: Fat Layer Exposed Amount of bleeding with debridement: Mild Bleeding Controlled with: Pressure Patient tolerated procedure: Patient tolerated procedure well - Additional Wound Wound debrided: heel (anterior plantar) Laterality: Right Wound Grade/Stage: grade 1 Type of Debridement: Excisional debridement Anesthesia Used: 5% Lidocaine Gel Depth: in the subcutaneous layer Percentage of wound debrided: 100 Instrument Used: #15 blade Tissue Removed: fibrous, devitalized subcutaneous, biofilm, slough Severity: Fat Layer Exposed Amount of bleeding with debridement: Mild Bleeding Controlled with: Pressure Patient tolerated procedure: Patient tolerated procedure well Assessment/Plan Active Problems Lymphedema (Chronic) Venous insufficiency (Chronic) Peripheral vascular disease (Chronic) Ulcer of right foot with fat layer exposed (Chronic) Assessment: Right forefoot medial ulcer - stable and infection resolved. Right heel ulcer with delayed healing -stable. Foot ulcer central lateral TMA site, healed today. Diabetes with neuropathy. lymphedema and continued leg swelling. peripheral vacular disease. venous insufficiency Plan: I discussed his case and treatment plan. Subcutaneous excisional debridement was performed to ulcer sites as noted in the nursing clinical panel to the right foot. To continue daily dressing changes with Aquacel. His left foot ulcer site has remained healed and it is okay if he covers it with a aperture pad and dry gauze to allow the skin remodeling. To maintain improved skin integrity by applying lac hydrin lotion to both legs daily. Continue circaid wraps bilateral legs daily; it is okay to apply tubigrip prior to application of CircAid foot wrap to better keep his wound dressings in place. To continue compression pump device daily; he is doing well with this. To proceed as previously advised with his lymphedema follow-up as advised. He is discharged from the [facility] at this time. Farrow compression garments to promote improved continued edema management at a more proximal level was approved for right lower extremity use; to use as advised. It is noted he was not approved for the left lower extremity because he did not meet qualifying criteria of open left leg current ulcer site. To continue Lasix use as advised by primary care physician. To continue with portion control for weight loss and proper glycemic control and nutritional supplementation to optimize healing. His hemoglobin A1c went from 9.0 to 7.4. To continue strict offloading to all these ulcer sites. He has a donut offloading pillow and he was advised to use this. To follow-up with Dr. Peng as advised for the recommended bilateral intervention, venous. His recent vascular intervention in the left lower extremity is noted. All of his questions were answered. He understands he is still at risk for limb loss. I also offered him home physical therapy orders to prevent further deconditioning because it is noted he feels more unstable recently. To follow-up at the wound care center in 1 - 2 weeks or call sooner if he has any questions or concerns.
== END 2018-12-13 23:59 ==
LOC: WC 11:00
PROVIDERS: Family Provider Family Medicine; PCP Family Medicine; Referring Provider Podiatrist; Visit Provider Podiatrist
DX: E11.621 Type 2 diabetes mellitus with foot ulcer (principal); I87.2 Venous insufficiency (chronic) (peripheral); E11.51 Type 2 diabetes mellitus with diabetic peripheral angiopathy without gangrene; I89.0 Lymphedema, not elsewhere classified; L97.412 Non-pressure chronic ulcer of right heel and midfoot with fat layer exposed; L97.512 Non-pressure chronic ulcer of other part of right foot with fat layer exposed; E11.40 Type 2 diabetes mellitus with diabetic neuropathy, unspecified; Z89.432 Acquired absence of left foot
CPT/HCPCS: 11042

== ENCOUNTER 2019-01-05 11:30 | Outpatient (RCR) | payer MEDICARE, MEDICAID, SELFPAY ==
[2018-12-14 00:31] VITALS: BP 174/75; PULSE 46; RESP 18; TEMP 36.3
[2018-12-22 11:42] VITALS: BP 162/68; PULSE 50; RESP 18; TEMP 36.7; BMI 53.1
--- NOTE | 2018-12-22 13:06 | PN.PCM_ITS ---
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: Chronic Current Visit: Yes Code(s): L97.512 - Non-pressure chronic ulcer of other part of right foot with fat layer exposed (2) Lymphedema Status: Chronic Current Visit: Yes Code(s): I89.0 - Lymphedema, not elsewhere classified (3) Venous insufficiency Status: Chronic Current Visit: Yes Code(s): I87.2 - Venous insufficiency (chronic) (peripheral) (4) Obesity Status: Chronic Current Visit: Yes Code(s): E66.9 - Obesity, unspecified (5) Type 2 diabetes mellitus with diabetic polyneuropathy Status: Chronic Current Visit: Yes Code(s): E11.42 - Type 2 diabetes mellitus with diabetic polyneuropathy (6) Malnutrition Status: Chronic Current Visit: Yes Code(s): E46 - Unspecified protein- calorie malnutrition Type of Wound Date of Service: 12/22/18 Chief Complaint: Multiple ulcers and leg swelling History of Wound: 63 year old male was seen for right heel ulcer with chronic osteomyelitis, right plantar heel ulcer. His left foot ulcer remains healed without drainage. He continues to cover the site with an aperture pad. He denies fever, chill, nausea, vomiting. He will continue dressing as advised with Aquacel. He uses the compression pumps 2-3 times a day with significant edema reduction. He completed his vascular surgery angioplasty with Dr. Peng for the left lower extremity. He has received treatment at the lymphedema clinic as well. He uses CircAid compression wraps. He has followed with Dr. Peng as advised. He wears a right cam walker boot. He denies left foot drainage. Progress of Wound: Improving - Physical Exam Vital Signs Temp Pulse Resp BP 98.0 F 50 L 18 162/68 H 12/22/18 11:42 12/22/18 11:42 12/22/18 11:42 12/22/18 11:42 General: Alert, Oriented x3, Cooperative, No apparent distress Extremities: No cyanosis, Capillary Refill Less than 3 Seconds, No Calf Tenderness - Negative Keara and Simmons signs bilateral, Diminished Peripheral Pulses, Edema - Bilateral lower extremities Skin: Ulcer/ Wound - No purulence, erythema, string, odor, infection, right. No ulcer left. Peripheral skin is hairless and atrophic bilateral Wound Measurements and Assessment WC - Nurse 1 - General Ulcer Measurement Start: 12/22/18 11:42 Freq: Status: Active Protocol: Activity Type Activity Date Activity User E-Sign Co-Sign Detail Recorded Client Recorded Date Recorded By Document 12/22/18 11:42 [id number] 12/22/18 11:49 12/22/18 11:42 Wound Center Nurse 1 [Ulcer Assessment] #21 rt plantar -Combined with other wound No -Current Size (cm) - Length 1.2 -Current Size (cm) - Width 0.5 -Current Size (cm) - Depth 0.2 -Total Square Cm 0.60 -Photo Taken No -Epithelialization None Present -Tunneling No -Undermining/Tunneling No -Circular Undermining No -Exudate Amt Medium -Exudate Type Serosanguineous -Wound Margin Distinct, Outline Attached -Granulation Amt Medium (34-66%) -Granulation Quality Red -Slough/Fibrin Yes -Necrosis Amt None Present (0 %) -Necrotic Tissue Type Adherent Slough -Structure Exposed N/A -Texture (Susy-wound Skin Appearance) Callus -Moisture (Susy-wound Skin Appearance No Abnormality, ) Assessed -Color (Susy-wound Skin Appearance) No Abnormality, Assessed -Temperature (Susy-wound Skin No Abnormality Appearance) (Pt Warm) -Tenderness on Palpation (Susy-wound No Skin Appearance) -Ulcer Cleansing Rinsed/ Irrigated with Saline -Foul Odor after Cleansing No -Anesthetic Used 5% Lidocaine Gel 20-right posterior heel -Combined with other wound No -Current Size (cm) - Length 1 -Current Size (cm) - Width 2 -Current Size (cm) - Depth 0.3 -Total Square Cm 2 -Photo Taken No -Epithelialization None Present -Tunneling No -Undermining/Tunneling No -Circular Undermining No -Exudate Amt None Present -Exudate Type Serosanguineous -Wound Margin Distinct, Outline Attached -Granulation Amt Medium (34-66%) -Granulation Quality Red -Slough/Fibrin Yes -Necrosis Amt None Present (0 %) -Necrotic Tissue Type Adherent Slough -Texture (Susy-wound Skin Appearance) Callus -Moisture (Susy-wound Skin Appearance No Abnormality, ) Assessed -Color (Susy-wound Skin Appearance) No Abnormality, Assessed -Temperature (Susy-wound Skin No Abnormality Appearance) (Pt Warm) -Tenderness on Palpation (Susy-wound No Skin Appearance) -Ulcer Cleansing Rinsed/ Irrigated with Saline -Foul Odor after Cleansing No -Anesthetic Used 5% Lidocaine Gel #1 right medial heel -Combined with other wound No -Current Size (cm) - Length 1.5 -Current Size (cm) - Width 1 -Current Size (cm) - Depth 0.3 -Total Square Cm 1.5 -Photo Taken No -Epithelialization None Present -Tunneling No -Undermining/Tunneling No -Circular Undermining No -Exudate Amt None Present -Exudate Type Serosanguineous -Wound Margin Distinct, Outline Attached -Granulation Amt Medium (34-66%) -Granulation Quality Red -Slough/Fibrin Yes -Necrosis Amt None Present (0 %) -Necrotic Tissue Type Adherent Slough -Structure Exposed N/A -Texture (Susy-wound Skin Appearance) Callus -Moisture (Susy-wound Skin Appearance No Abnormality, ) Assessed -Color (Susy-wound Skin Appearance) No Abnormality, Assessed -Temperature (Susy-wound Skin No Abnormality Appearance) (Pt Warm) -Tenderness on Palpation (Susy-wound No Skin Appearance) -Ulcer Cleansing Rinsed/ Irrigated with Saline -Foul Odor after Cleansing No -Anesthetic Used 5% Lidocaine Gel [Edema Assessment] -Lower Limb Edema Present Yes -Right Calf (cm) 58 -Right Ankle (cm) 33 -Left Calf (cm) 56 -Left Ankle (cm) 29.2 WC - Nurse 2 - General Ulcer CM Notes Start: 12/22/18 11:42 Freq: Status: Active Protocol: Activity Type Activity Date Activity User E-Sign Co-Sign Detail Recorded Client Recorded Date Recorded By Document 12/22/18 12:12 AN [email or web address] 12/22/18 12:15 AN 12/22/18 12:12 Wound Center Nurse 2 [Procedure/Treatment] #21 rt plantar -Time 12:14 -Correct Patient Yes -Correct Side, Site, Position Yes -Correct Procedure Yes -Procedure Performed Yes -Type of Procedure Debridement -Clinical Debridement Subcutaneous -Post Debridement Size (cm) - Length 1.3 -Post Debridement Size (cm) - Width 0.6 -Post Debridement Size (cm) - Depth 0.2 -Total Square Cm 0.78 -Wound/Ulcer Outcome Not Healed -Foul Odor after Cleansing No -Bioengineered Tissue No -Bleeding Controlled with Pressure -Offloading Yes -Type of Offloading Camwalker -Treatment Response Procedure Tolerated Well 20-right posterior heel -Time 12:14 -Correct Patient Yes -Correct Side, Site, Position Yes -Correct Procedure Yes -Procedure Performed Yes -Type of Procedure Debridement -Clinical Debridement Subcutaneous -Post Debridement Size (cm) - Length 1.2 -Post Debridement Size (cm) - Width 2.0 -Post Debridement Size (cm) - Depth 0.3 -Total Square Cm 2.40 -Wound/Ulcer Outcome Not Healed -Ulcer Cleansing Rinsed/ Irrigated with Saline -Bioengineered Tissue No -Bleeding Controlled with Pressure -Offloading Yes -Type of Offloading Camwalker -Treatment Response Procedure Tolerated Well #1 right medial heel -Time 12:15 -Correct Patient Yes -Correct Side, Site, Position Yes -Correct Procedure Yes -Procedure Performed Yes -Type of Procedure Debridement -Clinical Debridement Subcutaneous -Post Debridement Size (cm) - Length 1.6 -Post Debridement Size (cm) - Width 1.1 -Post Debridement Size (cm) - Depth 0.3 -Total Square Cm 1.76 -Wound/Ulcer Outcome Not Healed -Ulcer Cleansing Rinsed/ Irrigated with Saline -Foul Odor after Cleansing No -Bioengineered Tissue No -Bleeding Controlled with Pressure -Offloading Yes -Type of Offloading Camwalker -Treatment Response Procedure Tolerated Well [See Physician Procedure note for Specifics] Pain Scale: 0-10 Numeric [Pain] -Is Patient Pain Free? Yes Musculoskeletal: No Tenderness to Palpation of Joints or Extremities, Muscle Wasting, - - Left transmetatarsal amputation. Right hallux amputation. Compartments are soft to palpate bilateral lower extremities Neurological: - - Lack of epicritic sensation light touch is consistent with neuropathy Psych/Mental Status: Normal Affect, Appropriate Debridement Note Post-Debridement Measurements/Treatment WC - Nurse 2 - General Ulcer CM Notes Start: 12/22/18 11:42 Freq: Status: Active Protocol: Activity Type Activity Date Activity User E-Sign Co-Sign Detail Recorded Client Recorded Date Recorded By Document 12/22/18 12:12 AN [id number] 12/22/18 12:15 AN 12/22/18 12:12 Wound Center Nurse 2 #21 rt plantar -Time 12:14 -Correct Patient Yes -Correct Side, Site, Position Yes -Correct Procedure Yes -Procedure Performed Yes -Type of Procedure Debridement -Clinical Debridement Subcutaneous -Post Debridement Size (cm) - Length 1.3 -Post Debridement Size (cm) - Width 0.6 -Post Debridement Size (cm) - Depth 0.2 -Total Square Cm 0.78 -Wound/Ulcer Outcome Not Healed -Foul Odor after Cleansing No -Bioengineered Tissue No -Bleeding Controlled with Pressure -Offloading Yes -Type of Offloading Camwalker -Treatment Response Procedure Tolerated Well 20-right posterior heel -Time 12:14 -Correct Patient Yes -Correct Side, Site, Position Yes -Correct Procedure Yes -Procedure Performed Yes -Type of Procedure Debridement -Clinical Debridement Subcutaneous -Post Debridement Size (cm) - Length 1.2 -Post Debridement Size (cm) - Width 2.0 -Post Debridement Size (cm) - Depth 0.3 -Total Square Cm 2.40 -Wound/Ulcer Outcome Not Healed -Ulcer Cleansing Rinsed/ Irrigated with Saline -Bioengineered Tissue No -Bleeding Controlled with Pressure -Offloading Yes -Type of Offloading Camwalker -Treatment Response Procedure Tolerated Well #1 right medial heel -Time 12:15 -Correct Patient Yes -Correct Side, Site, Position Yes -Correct Procedure Yes -Procedure Performed Yes -Type of Procedure Debridement -Clinical Debridement Subcutaneous -Post Debridement Size (cm) - Length 1.6 -Post Debridement Size (cm) - Width 1.1 -Post Debridement Size (cm) - Depth 0.3 -Total Square Cm 1.76 -Wound/Ulcer Outcome Not Healed -Ulcer Cleansing Rinsed/ Irrigated with Saline -Foul Odor after Cleansing No -Bioengineered Tissue No -Bleeding Controlled with Pressure -Offloading Yes -Type of Offloading Camwalker -Treatment Response Procedure Tolerated Well Pain Scale: 0-10 Numeric Is Patient Pain Free? Yes Wound debrided: heel (posterior) Laterality: Right Wound Grade/Stage: grade 3 Type of Debridement: Excisional debridement Anesthesia Used: 5% Lidocaine Gel Depth: in the subcutaneous layer Percentage of wound debrided: 100 Instrument Used: #15 blade Tissue Removed: fibrous, devitalized subcutaneous, biofiom, slough Severity: Fat Layer Exposed Amount of bleeding with debridement: Mild Bleeding Controlled with: Pressure Patient tolerated procedure well - Additional Wound Wound debrided: heel (anterior) Laterality: Right Wound Grade/Stage: grade 1 Type of Debridement: Excisional debridement Anesthesia Used: 5% Lidocaine Gel Depth: in the subcutaneous layer Percentage of wound debrided: 100 Instrument Used: #15 blade Tissue Removed: fibrous, devitalized subcutaneous, biofiom, slough Severity: Fat Layer Exposed Amount of bleeding with debridement: Mild Bleeding Controlled with: Pressure Patient tolerated procedure: Patient tolerated procedure well - Additional Wound Wound debrided: sub first metatarsal head Laterality: Right Wound Grade/Stage: grade 1 Type of Debridement: Excisional debridement Anesthesia Used: 5% Lidocaine Gel Depth: in the subcutaneous layer Percentage of wound debrided: 100 Instrument Used: #15 blade Tissue Removed: fibrous, devitalized subcutaneous, biofiom, slough Severity: Fat Layer Exposed Amount of bleeding with debridement: Mild Bleeding Controlled with: Pressure Patient tolerated procedure: Patient tolerated procedure well Assessment/Plan Active Problems Lymphedema (Chronic) Venous insufficiency (Chronic) Ulcer of right foot with fat layer exposed (Chronic) Obesity (Chronic) Type 2 diabetes mellitus with diabetic polyneuropathy (Chronic) Malnutrition (Chronic) Assessment: Right forefoot medial ulcer - stable and infection resolved. Right heel ulcer with delayed healing -stable. Foot ulcer central lateral TMA site, means healed today. Diabetes with neuropathy. lymphedema and continued leg swelling. peripheral vacular disease. venous insufficiency Plan: I discussed his case and treatment plan. Subcutaneous excisional debridement was performed to ulcer sites as noted in the nursing clinical panel to the right foot. To continue daily dressing changes with Aquacel. His left foot ulcer site has remained healed and it is okay if he covers it with a aperture pad and dry gauze to allow the skin remodeling. To maintain improved skin integrity by applying lac hydrin lotion to both legs daily. Continue circaid wraps bilateral legs daily; it is okay to apply tubigrip prior to application of CircAid foot wrap to better keep his wound dressings in place. To continue compression pump device daily; he is doing well with this. To proceed as previously advised with his lymphedema follow-up as advised. He is discharged from the [facility] at this time. Farrow compression garments to promote improved continued edema management at a more proximal level was approved for right lower extremity use; to use as advised. It is noted he was not approved for the left lower extremity because he did not meet qualifying criteria of open left leg current ulcer site. To continue Lasix use as advised by primary care physician. To continue with portion control for weight loss and proper glycemic control and nutritional supplementation to optimize healing. His hemoglobin A1c went from 9.0 to 7.4. To continue strict offloading to all these ulcer sites. He has a donut offloading pillow and he was advised to use this. To follow-up with Dr. Peng as advised for the recommended bilateral intervention, venous. His recent vascular intervention in the left lower extremity is noted. All of his questions were answered. He understands he is still at risk for limb loss. To follow-up at the wound care center in 1 - 2 weeks or call sooner if he has any questions or concerns. He is on a palliative care program.
[2019-01-05 11:28] VITALS: BP 186/61; PULSE 57; RESP 16; TEMP 36.8; BMI 53.1
--- NOTE | 2019-01-05 13:18 | PN.PCM_ITS ---
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: Chronic Current Visit: Yes Code(s): L97.512 - Non-pressure chronic ulcer of other part of right foot with fat layer exposed (2) Lymphedema Status: Chronic Current Visit: Yes Code(s): I89.0 - Lymphedema, not elsewhere classified (3) Venous insufficiency Status: Chronic Current Visit: Yes Code(s): I87.2 - Venous insufficiency (chronic) (peripheral) (4) Obesity Status: Chronic Current Visit: Yes Code(s): E66.9 - Obesity, unspecified (5) Type 2 diabetes mellitus with diabetic polyneuropathy Status: Chronic Current Visit: Yes Code(s): E11.42 - Type 2 diabetes mellitus with diabetic polyneuropathy (6) Malnutrition Status: Chronic Current Visit: Yes Code(s): E46 - Unspecified protein- calorie malnutrition Type of Wound Date of Service: 01/05/19 Chief Complaint: Multiple ulcers and leg swelling History of Wound: 63 year old male was seen for right heel ulcer with chronic osteomyelitis, right plantar heel ulcer. His left foot ulcer remains healed without drainage. He continues to cover the site with an aperture pad. He denies fever, chill, nausea, vomiting. He will continue dressing as advised with Aquacel. He uses the compression pumps 2-3 times a day with significant edema reduction. He completed his vascular surgery angioplasty with Dr. Peng for the left lower extremity. He has received treatment at the lymphedema clinic as well. He uses CircAid compression wraps. He has followed with Dr. Peng as advised. He wears a right cam walker boot. He denies left foot drainage. Progress of Wound: Improving - Physical Exam Vital Signs Temp Pulse Resp BP 98.2 F 57 L 16 186/61 H 01/05/19 11:28 01/05/19 11:28 01/05/19 11:28 01/05/19 11:28 General: Alert, Oriented x3, Cooperative, No apparent distress Extremities: No cyanosis, Capillary Refill Less than 3 Seconds, No Calf Tenderness, Diminished Peripheral Pulses, Edema Skin: Ulcer/ Wound - No purulence, erythema, streaking, odor, infection. Peripheral skin is hairless and atrophic Wound Measurements and Assessment WC - Nurse 1 - General Ulcer Measurement Start: 12/22/18 11:42 Freq: Status: Active Protocol: Activity Type Activity Date Activity User E-Sign Co-Sign Detail Recorded Client Recorded Date Recorded By Document 01/05/19 11:28 [id number] 01/05/19 11:48 01/05/19 11:28 Wound Center Nurse 1 [Ulcer Assessment] #26 RIGHT SECOND TOE -Combined with other wound No -Current Size (cm) - Length 1.1 -Current Size (cm) - Width 1.4 -Current Size (cm) - Depth 0.1 -Total Square Cm 1.54 -Date of Last Picture (Recall this 01/05/19 field) -Photo Taken Yes -Epithelialization None Present -Tunneling No -Undermining/Tunneling No -Circular Undermining No -Temperature (Susy-wound Skin No Abnormality Appearance) (Pt Warm) -Tenderness on Palpation (Susy-wound No Skin Appearance) -Ulcer Cleansing Rinsed/ Irrigated with Saline -Foul Odor after Cleansing No -Anesthetic Used 4% Lidocaine Solution #21 rt plantar -Combined with other wound No -Current Size (cm) - Length 1.3 -Current Size (cm) - Width 1.1 -Current Size (cm) - Depth 0.2 -Total Square Cm 1.43 -Photo Taken No -Epithelialization None Present -Tunneling No -Undermining/Tunneling No -Circular Undermining No -Exudate Amt Small -Exudate Type Serosanguineous -Wound Margin Distinct, Outline Attached -Granulation Amt Small (1-33%) -Granulation Quality Red -Slough/Fibrin Yes -Necrosis Amt Medium (34-66%) -Necrotic Tissue Type Adherent Slough -Structure Exposed None/Limited to Skin Breakdown -Texture (Susy-wound Skin Appearance) Callus -Moisture (Susy-wound Skin Appearance No Abnormality, ) Assessed -Color (Susy-wound Skin Appearance) No Abnormality, Assessed -Temperature (Susy-wound Skin No Abnormality Appearance) (Pt Warm) -Tenderness on Palpation (Susy-wound No Skin Appearance) -Ulcer Cleansing Rinsed/ Irrigated with Saline -Foul Odor after Cleansing No -Anesthetic Used 4% Lidocaine Solution 20-right posterior heel -Combined with other wound No -Current Size (cm) - Length 2 -Current Size (cm) - Width 1.6 -Current Size (cm) - Depth 0.4 -Total Square Cm 3.2 -Photo Taken No -Epithelialization None Present -Tunneling No -Undermining/Tunneling No -Circular Undermining No -Exudate Amt Small -Exudate Type Serosanguineous -Wound Margin Distinct, Outline Attached -Granulation Amt Small (1-33%) -Granulation Quality Pale,Red -Necrosis Amt Small (1-33%) -Necrotic Tissue Type Adherent Slough -Structure Exposed N/A -Texture (Susy-wound Skin Appearance) Callus -Moisture (Susy-wound Skin Appearance Dry/Scaly ) -Color (Susy-wound Skin Appearance) No Abnormality, Assessed -Temperature (Susy-wound Skin No Abnormality Appearance) (Pt Warm) -Tenderness on Palpation (Susy-wound No Skin Appearance) -Ulcer Cleansing Rinsed/ Irrigated with Saline -Foul Odor after Cleansing No -Anesthetic Used 4% Lidocaine Solution #1 right medial heel -Combined with other wound No -Current Size (cm) - Length 2.1 -Current Size (cm) - Width 2.8 -Current Size (cm) - Depth 0.4 -Total Square Cm 5.88 -Photo Taken No -Epithelialization None Present -Tunneling No -Undermining/Tunneling No -Circular Undermining No -Exudate Type Serosanguineous -Wound Margin Distinct, Outline Attached -Granulation Amt Small (1-33%) -Granulation Quality Pale,Red -Slough/Fibrin Yes -Necrosis Amt None Present (0 %) -Necrotic Tissue Type Adherent Slough -Temperature (Susy-wound Skin No Abnormality Appearance) (Pt Warm) -Tenderness on Palpation (Susy-wound No Skin Appearance) -Ulcer Cleansing Rinsed/ Irrigated with Saline -Foul Odor after Cleansing No -Anesthetic Used 4% Lidocaine Solution [Edema Assessment] -Lower Limb Edema Present Yes -Right Calf (cm) 55.5 -Right Ankle (cm) 31.2 WC - Nurse 2 - General Ulcer CM Notes Start: 12/22/18 11:42 Freq: Status: Active Protocol: Activity Type Activity Date Activity User E-Sign Co-Sign Detail Recorded Client Recorded Date Recorded By Document 01/05/19 12:05 AN [id number] 01/05/19 12:10 AN 01/05/19 12:05 Wound Center Nurse 2 [Procedure/Treatment] #26 RIGHT SECOND TOE -Time 12:08 -Correct Patient Yes -Correct Side, Site, Position Yes -Correct Procedure Yes -Procedure Performed Yes -Type of Procedure Debridement -Clinical Debridement Subcutaneous -Post Debridement Size (cm) - Length 1.2 -Post Debridement Size (cm) - Width 1.5 -Post Debridement Size (cm) - Depth 0.1 -Total Square Cm 1.80 -Wound/Ulcer Outcome Not Healed -Ulcer Cleansing Rinsed/ Irrigated with Saline -Foul Odor after Cleansing No -Bioengineered Tissue No -Bleeding Controlled with Pressure -Offloading Yes -Type of Offloading Camwalker -Treatment Response Procedure Tolerated Well #21 rt plantar -Time 12:08 -Correct Patient Yes -Correct Side, Site, Position Yes -Correct Procedure Yes -Procedure Performed Yes -Type of Procedure Debridement -Clinical Debridement Subcutaneous -Post Debridement Size (cm) - Length 1.4 -Post Debridement Size (cm) - Width 1.2 -Post Debridement Size (cm) - Depth 0.2 -Total Square Cm 1.68 -Wound/Ulcer Outcome Not Healed -Ulcer Cleansing Rinsed/ Irrigated with Saline -Foul Odor after Cleansing No -Bioengineered Tissue No -Bleeding Controlled with Pressure -Offloading Yes -Type of Offloading Camwalker -Treatment Response Procedure Tolerated Well 20-right posterior heel -Time 12:09 -Correct Patient Yes -Correct Side, Site, Position Yes -Correct Procedure Yes -Procedure Performed Yes -Type of Procedure Debridement -Clinical Debridement Subcutaneous -Post Debridement Size (cm) - Length 2.0 -Post Debridement Size (cm) - Width 1.7 -Post Debridement Size (cm) - Depth 0.4 -Total Square Cm 3.40 -Wound/Ulcer Outcome Not Healed -Ulcer Cleansing Rinsed/ Irrigated with Saline -Foul Odor after Cleansing No -Bioengineered Tissue No -Bleeding Controlled with Pressure -Offloading Yes -Type of Offloading Camwalker -Treatment Response Procedure Tolerated Well #1 right medial heel -Time 12:09 -Correct Patient Yes -Correct Side, Site, Position Yes -Correct Procedure Yes -Procedure Performed Yes -Type of Procedure Debridement -Clinical Debridement Subcutaneous -Post Debridement Size (cm) - Length 2.1 -Post Debridement Size (cm) - Width 2.8 -Post Debridement Size (cm) - Depth 0.4 -Total Square Cm 5.88 -Wound/Ulcer Outcome Not Healed -Ulcer Cleansing Rinsed/ Irrigated with Saline -Foul Odor after Cleansing No -Bioengineered Tissue No -Bleeding Controlled with Pressure -Offloading Yes -Type of Offloading Camwalker -Treatment Response Procedure Tolerated Well [See Physician Procedure note for Specifics] Pain Scale: 0-10 Numeric [Pain] -Is Patient Pain Free? Yes Musculoskeletal: No Tenderness to Palpation of Joints or Extremities, Muscle Wasting Neurological: - - Lack of normal epicritic sensation light touch Psych/Mental Status: Normal Affect, Appropriate Debridement Note Post-Debridement Measurements/Treatment WC - Nurse 2 - General Ulcer CM Notes Start: 12/22/18 11:42 Freq: Status: Active Protocol: Activity Type Activity Date Activity User E-Sign Co-Sign Detail Recorded Client Recorded Date Recorded By Document 12/22/18 12:12 AN [id number] 12/22/18 12:15 AN Document 01/05/19 12:05 AN [id number] 01/05/19 12:10 AN 12/22/18 01/05/19 12:12 12:05 Wound Center Nurse 2 #26 RIGHT SECOND TOE -Time 12:08 -Correct Patient Yes -Correct Side, Site, Position Yes -Correct Procedure Yes -Procedure Performed Yes -Type of Procedure Debridement -Clinical Debridement Subcutaneous -Post Debridement Size (cm) - Length 1.2 -Post Debridement Size (cm) - Width 1.5 -Post Debridement Size (cm) - Depth 0.1 -Total Square Cm 1.80 -Wound/Ulcer Outcome Not Healed -Ulcer Cleansing Rinsed/ Irrigated with Saline -Foul Odor after Cleansing No -Bioengineered Tissue No -Bleeding Controlled with Pressure -Offloading Yes -Type of Offloading Camwalker -Treatment Response Procedure Tolerated Well #21 rt plantar -Time 12:14 12:08 -Correct Patient Yes Yes -Correct Side, Site, Position Yes Yes -Correct Procedure Yes Yes -Procedure Performed Yes Yes -Type of Procedure Debridement Debridement -Clinical Debridement Subcutaneous Subcutaneous -Post Debridement Size (cm) - Length 1.3 1.4 -Post Debridement Size (cm) - Width 0.6 1.2 -Post Debridement Size (cm) - Depth 0.2 0.2 -Total Square Cm 0.78 1.68 -Wound/Ulcer Outcome Not Healed Not Healed -Ulcer Cleansing Rinsed/ Irrigated with Saline -Foul Odor after Cleansing No No -Bioengineered Tissue No No -Bleeding Controlled with Pressure Pressure -Offloading Yes Yes -Type of Offloading Camwalker Camwalker -Treatment Response Procedure Procedure Tolerated Well Tolerated Well 20-right posterior heel -Time 12:14 12:09 -Correct Patient Yes Yes -Correct Side, Site, Position Yes Yes -Correct Procedure Yes Yes -Procedure Performed Yes Yes -Type of Procedure Debridement Debridement -Clinical Debridement Subcutaneous Subcutaneous -Post Debridement Size (cm) - Length 1.2 2.0 -Post Debridement Size (cm) - Width 2.0 1.7 -Post Debridement Size (cm) - Depth 0.3 0.4 -Total Square Cm 2.40 3.40 -Wound/Ulcer Outcome Not Healed Not Healed -Ulcer Cleansing Rinsed/ Rinsed/ Irrigated with Irrigated with Saline Saline -Foul Odor after Cleansing No -Bioengineered Tissue No No -Bleeding Controlled with Pressure Pressure -Offloading Yes Yes -Type of Offloading Camwalker Camwalker -Treatment Response Procedure Procedure Tolerated Well Tolerated Well #1 right medial heel -Time 12:15 12:09 -Correct Patient Yes Yes -Correct Side, Site, Position Yes Yes -Correct Procedure Yes Yes -Procedure Performed Yes Yes -Type of Procedure Debridement Debridement -Clinical Debridement Subcutaneous Subcutaneous -Post Debridement Size (cm) - Length 1.6 2.1 -Post Debridement Size (cm) - Width 1.1 2.8 -Post Debridement Size (cm) - Depth 0.3 0.4 -Total Square Cm 1.76 5.88 -Wound/Ulcer Outcome Not Healed Not Healed -Ulcer Cleansing Rinsed/ Rinsed/ Irrigated with Irrigated with Saline Saline -Foul Odor after Cleansing No No -Bioengineered Tissue No No -Bleeding Controlled with Pressure Pressure -Offloading Yes Yes -Type of Offloading Camwalker Camwalker -Treatment Response Procedure Procedure Tolerated Well Tolerated Well Pain Scale: 0-10 Numeric Is Patient Pain Free? Yes Yes Wound debrided: 2nd toe Laterality: Right Wound Grade/Stage: grade 1 Type of Debridement: Excisional debridement Anesthesia Used: 5% Lidocaine Gel Depth: in the subcutaneous layer Percentage of wound debrided: 100 Instrument Used: #15 blade Tissue Removed: fibrous, devitalized subcutaneous, biofilm, slough Severity: Fat Layer Exposed Amount of bleeding with debridement: Mild Bleeding Controlled with: Pressure Patient tolerated procedure well - Additional Wound Wound debrided: sub 1st metatarsal head Laterality: Right Wound Grade/Stage: grade 1 Type of Debridement: Excisional debridement Anesthesia Used: 5% Lidocaine Gel Depth: in the subcutaneous layer Percentage of wound debrided: 100 Instrument Used: #15 blade Tissue Removed: fibrous, devitalized subcutaneous, biofilm, slough Severity: Fat Layer Exposed Amount of bleeding with debridement: Mild Bleeding Controlled with: Pressure Patient tolerated procedure: Patient tolerated procedure well - Additional Wound Wound debrided: heel (posterior) Laterality: Right Wound Grade/Stage: grade 3 Type of Debridement: Excisional debridement Anesthesia Used: 5% Lidocaine Gel Depth: in the subcutaneous layer Percentage of wound debrided: 100 Instrument Used: #15 blade Tissue Removed: fibrous, devitalized subcutaneous, biofilm, slough Severity: Fat Layer Exposed Amount of bleeding with debridement: Mild Bleeding Controlled with: Pressure Patient tolerated procedure: Patient tolerated procedure well - Additional Wound Wound debrided: heel plantar anterior Laterality: Right Wound Grade/Stage: grade 1 Type of Debridement: Excisional debridement Anesthesia Used: 5% Lidocaine Gel Depth: in the subcutaneous layer Percentage of wound debrided: 100 Instrument Used: #15 blade Tissue Removed: fibrous, devitalized subcutaneous, biofilm, slough Severity: Fat Layer Exposed Amount of bleeding with debridement: Mild Bleeding Controlled with: Pressure Patient tolerated procedure: Patient tolerated procedure well Assessment/Plan Active Problems Lymphedema (Chronic) Venous insufficiency (Chronic) Ulcer of right foot with fat layer exposed (Chronic) Obesity (Chronic) Type 2 diabetes mellitus with diabetic polyneuropathy (Chronic) Malnutrition (Chronic) Assessment: Right forefoot medial ulcer - stable and infection resolved. Right heel ulcer with delayed healing -stable. Foot ulcer central lateral TMA site, means healed today. Diabetes with neuropathy. lymphedema and continued leg swelling. peripheral vacular disease. venous insufficiency Plan: I discussed his case and treatment plan. Subcutaneous excisional debridement was performed to ulcer sites as noted in the nursing clinical panel to the right foot. To continue daily dressing changes with Aquacel. To maintain improved skin integrity by applying lac hydrin lotion to both legs daily. Continue circaid wraps bilateral legs daily; it is okay to apply tubigrip prior to application of CircAid foot wrap to better keep his wound dres sings in place. To continue compression pump device daily; he is doing well with this. To proceed as previously advised with his lymphedema follow-up as advised. He is discharged from the [facility] at this time. Farrow compression garments to promote improved continued edema management at a more proximal level was approved for right lower extremity use; to use as advised. It is noted he was not approved for the left lower extremity because he did not meet qualifying criteria of open left leg current ulcer site. To continue Lasix use as advised by primary care physician. To continue with portion control for weight loss and proper glycemic control and nutritional supplementation to optimize healing. His hemoglobin A1c went from 9.0 to 7.4. To continue strict offloading to all these ulcer sites. He has a donut offloading pillow and he was advised to use this. To follow-up with Dr. Peng as advised for the recommended bilateral intervention, venous. His recent vascular intervention in the left lower extremity is noted. All of his questions were answered. He understands he is still at risk for limb loss. To follow-up at the wound care center in 1 - 2 weeks or call sooner if he has any questions or concerns. He is on a palliative care program.
== END 2019-01-13 23:59 ==
LOC: WC 11:30
PROVIDERS: Family Provider Family Medicine; PCP Family Medicine; Referring Provider Podiatrist; Visit Provider Podiatrist
DX: E11.621 Type 2 diabetes mellitus with foot ulcer (principal); L97.512 Non-pressure chronic ulcer of other part of right foot with fat layer exposed; I87.2 Venous insufficiency (chronic) (peripheral); I89.0 Lymphedema, not elsewhere classified; E11.42 Type 2 diabetes mellitus with diabetic polyneuropathy; E66.9 Obesity, unspecified; L97.412 Non-pressure chronic ulcer of right heel and midfoot with fat layer exposed; E11.69 Type 2 diabetes mellitus with other specified complication; M86.68 Other chronic osteomyelitis, other site
CPT/HCPCS: 11042

== ENCOUNTER 2019-02-02 15:45 | Outpatient (RCR) | payer MEDICARE, MEDICAID, SELFPAY ==
[2019-01-14 00:32] VITALS: BP 186/61; PULSE 57; RESP 16; TEMP 36.8
[2019-01-26 15:42] VITALS: BP 152/72; PULSE 59; RESP 18; TEMP 36.7; BMI 53.1
--- NOTE | 2019-01-26 16:23 | PN.PCM_ITS ---
(1) Lymphedema Status: Chronic Current Visit: Yes Code(s): I89.0 - Lymphedema, not elsewhere classified (2) Venous insufficiency Status: Chronic Current Visit: Yes Code(s): I87.2 - Venous insufficiency (chronic) (peripheral) (3) Ulcer of right foot with fat layer exposed Status: Chronic Current Visit: Yes Code(s): L97.512 - Non-pressure chronic ulcer of other part of right foot with fat layer exposed (4) Obesity Status: Chronic Current Visit: Yes Code(s): E66.9 - Obesity, unspecified (5) Lower extremity edema Status: Chronic Current Visit: Yes Code(s): R60.0 - Localized edema (6) Type 2 diabetes mellitus with diabetic polyneuropathy Status: Chronic Current Visit: Yes Code(s): E11.42 - Type 2 diabetes mellitus with diabetic polyneuropathy Type of Wound Date of Service: 01/26/19 Chief Complaint: Multiple ulcers and leg swelling History of Wound: 63 year old male was seen for right heel ulcer with chronic osteomyelitis, right plantar heel ulcer. His left foot ulcer remains weeps occasionally. He continues to cover the site with an aperture pad. He denies fever, chill, nausea, vomiting. He will continue dressing as advised with Aquacel. He uses the compression pumps 2-3 times a day with significant edema reduction. He completed his vascular surgery angioplasty with Dr. Peng for the left lower extremity. He has received treatment at the lymphedema clinic as well. He uses CircAid compression wraps. He has followed with Dr. Peng as advised. He wears a right cam walker boot. He reports recent exacerbation of lower extremity swelling and is working on getting this better managed with his primary care physician. Progress of Wound: Improving right forefoot ulcer site and larger ulcer site to the plantar heel is noted - Physical Exam Vital Signs Temp Pulse Resp BP 98.0 F 59 L 18 152/72 H 01/26/19 15:42 01/26/19 15:42 01/26/19 15:42 01/26/19 15:42 General: Alert, Oriented x3, Cooperative, No apparent distress Extremities: No cyanosis, Capillary Refill Less than 3 Seconds, No Calf Tenderness - Negative Keara and Simmons sign bilateral, Diminished Peripheral Pulses, Edema Skin: Ulcer/ Wound - No purulence, erythema, string, odor, infection. Increased ulcer size to the plantar right heel ulcer site is noted with undermining to the distal aspect and upon debridement this is a granular base. There is no maceration, necrosis or deep tissue exposure. The peripheral skin is hairless and atrophic. No leticia skin discontinuity is noted to the left foot. His skin is hyperpigmented bilateral legs Wound Measurements and Assessment WC - Nurse 1 - General Ulcer Measurement Start: 01/20/19 11:50 Freq: Status: Active Protocol: Activity Type Activity Date Activity User E-Sign Co-Sign Detail Recorded Client Recorded Date Recorded By Document 01/26/19 15:42 CT [id number] 01/26/19 15:55 CT 01/26/19 15:42 Wound Center Nurse 1 [Ulcer Assessment] #26 RIGHT SECOND TOE -Current Size (cm) - Length 0.1 -Current Size (cm) - Width 0.1 -Current Size (cm) - Depth 0.1 -Total Square Cm 0.01 -Exudate Amt None Present -Wound Margin Thickened -Granulation Amt Medium (34-66%) -Granulation Quality Pale,[place] -Necrosis Amt Medium (34-66%) -Necrotic Tissue Type Adherent Slough -Texture (Susy-wound Skin Appearance) Assessed,Callus -Moisture (Susy-wound Skin Appearance Assessed, ) Maceration -Color (Susy-wound Skin Appearance) Assessed -Temperature (Susy-wound Skin No Abnormality Appearance) (Pt Warm) -Tenderness on Palpation (Susy-wound No Skin Appearance) -Ulcer Cleansing Rinsed/ Irrigated with Saline -Foul Odor after Cleansing No -Anesthetic Used 5% Lidocaine Gel #21 rt plantar -Current Size (cm) - Length 1.0 -Current Size (cm) - Width 0.7 -Current Size (cm) - Depth 0.2 -Total Square Cm 0.70 -Exudate Amt Small -Exudate Type Serosanguineous -Wound Margin Thickened & Rolled Under -Granulation Amt Medium (34-66%) -Granulation Quality Pale,[place] -Necrosis Amt Medium (34-66%) -Necrotic Tissue Type Adherent Slough -Texture (Susy-wound Skin Appearance) Assessed -Moisture (Susy-wound Skin Appearance Maceration, ) Weeping -Color (Susy-wound Skin Appearance) Assessed -Temperature (Susy-wound Skin No Abnormality Appearance) (Pt Warm) -Tenderness on Palpation (Susy-wound No Skin Appearance) -Ulcer Cleansing Rinsed/ Irrigated with Saline -Anesthetic Used 4% Lidocaine Solution 20-right posterior heel -Current Size (cm) - Length 3.0 -Current Size (cm) - Width 1.2 -Current Size (cm) - Depth 0.2 -Total Square Cm 3.60 -Exudate Amt Small -Exudate Type Serosanguineous -Wound Margin Thickened & Rolled Under -Granulation Amt Medium (34-66%) -Granulation Quality Pale,[place] -Necrosis Amt Small (1-33%) -Necrotic Tissue Type Adherent Slough -Texture (Susy-wound Skin Appearance) Assessed, Scarring -Moisture (Susy-wound Skin Appearance Assessed, ) Maceration -Color (Susy-wound Skin Appearance) Assessed, Erythema -Temperature (Susy-wound Skin No Abnormality Appearance) (Pt Warm) -Tenderness on Palpation (Susy-wound No Skin Appearance) -Ulcer Cleansing Rinsed/ Irrigated with Saline -Foul Odor after Cleansing No -Anesthetic Used 5% Lidocaine Gel #1 right medial heel -Current Size (cm) - Length 1.3 -Current Size (cm) - Width 1.7 -Current Size (cm) - Depth 0.2 -Total Square Cm 2.21 -Exudate Amt Small -Exudate Type Serosanguineous -Wound Margin Thickened & Rolled Under -Granulation Amt Large (67-100%) -Granulation Quality Pale,[place] -Necrosis Amt Small (1-33%) -Necrotic Tissue Type Adherent Slough -Texture (Susy-wound Skin Appearance) Assessed -Moisture (Susy-wound Skin Appearance Assessed, ) Maceration -Color (Susy-wound Skin Appearance) Assessed,Palor -Temperature (Susy-wound Skin No Abnormality Appearance) (Pt Warm) -Tenderness on Palpation (Susy-wound No Skin Appearance) -Ulcer Cleansing Rinsed/ Irrigated with Saline -Anesthetic Used 5% Lidocaine Gel WC - Nurse 2 - General Ulcer CM Notes Start: 01/20/19 11:50 Freq: Status: Active Protocol: Activity Type Activity Date Activity User E-Sign Co-Sign Detail Recorded Client Recorded Date Recorded By Document 01/26/19 16:04 NORRIS [id number] 01/26/19 16:09 NORRIS 01/26/19 16:04 Wound Center Nurse 2 [Procedure/Treatment] #26 RIGHT SECOND TOE -Time 16:06 -Correct Patient No -Correct Side, Site, Position No -Correct Procedure No -Procedure Performed No -Post Debridement Size (cm) - Length 0 -Post Debridement Size (cm) - Width 0 -Post Debridement Size (cm) - Depth 0 -Total Square Cm 0 -Wound/Ulcer Outcome Healed- Epithelialized #21 rt plantar -Time 16:07 -Correct Patient Yes -Correct Side, Site, Position Yes -Correct Procedure Yes -Procedure Performed Yes -Type of Procedure Debridement -Clinical Debridement Subcutaneous -Post Debridement Size (cm) - Length 1.0 -Post Debridement Size (cm) - Width 0.8 -Post Debridement Size (cm) - Depth 0.2 -Total Square Cm 0.80 -Wound/Ulcer Outcome Not Healed -Ulcer Cleansing Rinsed/ Irrigated with Saline -Foul Odor after Cleansing No -Bioengineered Tissue No -Bleeding Controlled with Pressure -Offloading Yes -Type of Offloading Surgical Shoe -Treatment Response Procedure Tolerated Well 20-right posterior heel -Time 16:07 -Correct Patient Yes -Correct Side, Site, Position Yes -Correct Procedure Yes -Procedure Performed Yes -Type of Procedure Debridement -Clinical Debridement Subcutaneous -Post Debridement Size (cm) - Length 3.0 -Post Debridement Size (cm) - Width 7.8 -Post Debridement Size (cm) - Depth 0.3 -Total Square Cm 23.40 -Wound/Ulcer Outcome Not Healed -Ulcer Cleansing Rinsed/ Irrigated with Saline -Foul Odor after Cleansing No -Bioengineered Tissue No -Bleeding Controlled with Pressure -Offloading Yes -Type of Offloading Surgical Shoe -Treatment Response Procedure Tolerated Well #1 right medial heel -Time 16:07 -Correct Patient Yes -Correct Side, Site, Position Yes -Correct Procedure Yes -Procedure Performed Yes -Type of Procedure Debridement -Clinical Debridement Subcutaneous -Post Debridement Size (cm) - Length 1.3 -Post Debridement Size (cm) - Width 1.8 -Post Debridement Size (cm) - Depth 0.1 -Total Square Cm 2.34 -Wound/Ulcer Outcome Not Healed -Ulcer Cleansing Rinsed/ Irrigated with Saline -Foul Odor after Cleansing No -Bioengineered Tissue No -Bleeding Controlled with Pressure -Offloading No -Treatment Response Procedure Tolerated Well [See Physician Procedure note for Specifics] Musculoskeletal: No Tenderness to Palpation of Joints or Extremities, Muscle Wasting, - - 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 site with adjacent dorsal contraction of lesser toes Neurological: - - Lack of normal epicritic sensation light touch is consistent with neuropathy status Psych/Mental Status: Normal Affect, Appropriate Debridement Note Post-Debridement Measurements/Treatment WC - Nurse 2 - General Ulcer CM Notes Start: 01/20/19 11:50 Freq: Status: Active Protocol: Activity Type Activity Date Activity User E-Sign Co-Sign Detail Recorded Client Recorded Date Recorded By Document 01/26/19 16:04 NORRIS [id number] 01/26/19 16:09 NORRIS 01/26/19 16:04 Wound Center Nurse 2 #26 RIGHT SECOND TOE -Time 16:06 -Correct Patient No -Correct Side, Site, Position No -Correct Procedure No -Procedure Performed No -Post Debridement Size (cm) - Length 0 -Post Debridement Size (cm) - Width 0 -Post Debridement Size (cm) - Depth 0 -Total Square Cm 0 -Wound/Ulcer Outcome Healed- Epithelialized #21 rt plantar -Time 16:07 -Correct Patient Yes -Correct Side, Site, Position Yes -Correct Procedure Yes -Procedure Performed Yes -Type of Procedure Debridement -Clinical Debridement Subcutaneous -Post Debridement Size (cm) - Length 1.0 -Post Debridement Size (cm) - Width 0.8 -Post Debridement Size (cm) - Depth 0.2 -Total Square Cm 0.80 -Wound/Ulcer Outcome Not Healed -Ulcer Cleansing Rinsed/ Irrigated with Saline -Foul Odor after Cleansing No -Bioengineered Tissue No -Bleeding Controlled with Pressure -Offloading Yes -Type of Offloading Surgical Shoe -Treatment Response Procedure Tolerated Well 20-right posterior heel -Time 16:07 -Correct Patient Yes -Correct Side, Site, Position Yes -Correct Procedure Yes -Procedure Performed Yes -Type of Procedure Debridement -Clinical Debridement Subcutaneous -Post Debridement Size (cm) - Length 3.0 -Post Debridement Size (cm) - Width 7.8 -Post Debridement Size (cm) - Depth 0.3 -Total Square Cm 23.40 -Wound/Ulcer Outcome Not Healed -Ulcer Cleansing Rinsed/ Irrigated with Saline -Foul Odor after Cleansing No -Bioengineered Tissue No -Bleeding Controlled with Pressure -Offloading Yes -Type of Offloading Surgical Shoe -Treatment Response Procedure Tolerated Well #1 right medial heel -Time 16:07 -Correct Patient Yes -Correct Side, Site, Position Yes -Correct Procedure Yes -Procedure Performed Yes -Type of Procedure Debridement -Clinical Debridement Subcutaneous -Post Debridement Size (cm) - Length 1.3 -Post Debridement Size (cm) - Width 1.8 -Post Debridement Size (cm) - Depth 0.1 -Total Square Cm 2.34 -Wound/Ulcer Outcome Not Healed -Ulcer Cleansing Rinsed/ Irrigated with Saline -Foul Odor after Cleansing No -Bioengineered Tissue No -Bleeding Controlled with Pressure -Offloading No -Treatment Response Procedure Tolerated Well Wound debrided: sub 1st metatarsal head Laterality: Right Wound Grade/Stage: grade 2 Type of Debridement: Excisional debridement Anesthesia Used: 5% Lidocaine Gel Depth: in the subcutaneous layer Percentage of wound debrided: 100 Instrument Used: #15 blade Tissue Removed: fibrous, devitalized subcutaneous, biofilm, slough Severity: Fat Layer Exposed Amount of bleeding with debridement: Mild Bleeding Controlled with: Pressure Patient tolerated procedure well - Additional Wound Wound debrided: plantar heel Laterality: Right Wound Grade/Stage: grade 1 Type of Debridement: Excisional debridement Anesthesia Used: 5% Lidocaine Gel Depth: in the subcutaneous layer Percentage of wound debrided: 100 Instrument Used: #15 blade Tissue Removed: fibrous, devitalized subcutaneous, biofilm, slough Severity: Fat Layer Exposed Amount of bleeding with debridement: Mild Bleeding Controlled with: Pressure Patient tolerated procedure: Patient tolerated procedure well - Additional Wound Wound debrided: plantar posterior heel Laterality: Right Wound Grade/Stage: grade 3 Type of Debridement: Excisional debridement Anesthesia Used: 5% Lidocaine Gel Depth: in the subcutaneous layer Percentage of wound debrided: 100 Instrument Used: #15 blade Tissue Removed: fibrous, devitalized subcutaneous, biofilm, slough Severity: Fat Layer Exposed Amount of bleeding with debridement: Mild Bleeding Controlled with: Pressure Patient tolerated procedure: Patient tolerated procedure well Assessment/Plan Active Problems Lymphedema (Chronic) Venous insufficiency (Chronic) Ulcer of right foot with fat layer exposed (Chronic) Obesity (Chronic) Lower extremity edema (Chronic) Type 2 diabetes mellitus with diabetic polyneuropathy (Chronic) Assessment: Right forefoot medial plantar ulcer -proving. Plantar posterior right heel ulcer stable. Plantar heel ulcer increased in size. Foot ulcer central lateral TMA site, means healed today. Diabetes with neuropathy. lymphedema and continued leg swelling with recent exacerbation. peripheral vacular disease. venous insufficiency Plan: I discussed his case and treatment plan. Subcutaneous excisional debridement was performed to ulcer sites as noted in the nursing clinical panel to the right foot. To continue daily dressing changes with Aquacel. To maintain improved skin integrity by applying lac hydrin lotion to both legs daily. Continue circaid wraps bilateral legs daily; it is okay to apply tubigrip prior to application of CircAid foot wrap to better keep his wound dressings in place. To continue compression pump device daily; he is doing well with this. To proceed as previously advised with his lymphedema follow-up as advised. He is discharged from the [facility] at this time. [place] compression garments to promote improved continued edema management at a more proximal level was approved for right lower extremity use; to use as advised. It is noted he was not approved for the left lower extremity because he did not meet qualifying criteria of open left leg current ulcer site. To continue Lasix use as advised by primary care physician. To continue with portion control for weight loss and proper glycemic control and nutritional supplementation to optimize healing. His hemoglobin A1c went from 9.0 to 7.4. To continue strict offloading to all these ulcer sites. He has a donut offloading pillow and he was advised to use this. To follow-up with Dr. Peng as advised for the recommended bilateral intervention, venous. His recent vascular intervention in the left lower extremity is noted. All of his questions were answered. He understands he is still at risk for limb loss. To follow-up at the wound care center in 1 - 2 weeks or call sooner if he has any questions or concerns. He is on a palliative care program.
[2019-02-02 16:00] VITALS: BMI 53.1
--- NOTE | 2019-02-02 16:46 | PN.PCM_ITS ---
(1) Lymphedema Status: Chronic Current Visit: Yes Code(s): I89.0 - Lymphedema, not elsewhere classified (2) Venous insufficiency Status: Chronic Current Visit: Yes Code(s): I87.2 - Venous insufficiency (chronic) (peripheral) (3) Ulcer of right foot with fat layer exposed Status: Chronic Current Visit: Yes Code(s): L97.512 - Non-pressure chronic ulcer of other part of right foot with fat layer exposed (4) Obesity Status: Chronic Current Visit: Yes Code(s): E66.9 - Obesity, unspecified (5) Lower extremity edema Status: Chronic Current Visit: Yes Code(s): R60.0 - Localized edema (6) Type 2 diabetes mellitus with diabetic polyneuropathy Status: Chronic Current Visit: Yes Code(s): E11.42 - Type 2 diabetes mellitus with diabetic polyneuropathy (7) Blister of right foot Status: Acute Current Visit: Yes Qualifiers: Encounter type: initial encounter Qualified Code(s): S90.821A - Blister (nonthermal), right foot, initial encounter Code(s): S90.821A - Blister (nonthermal), right foot, initial encounter Type of Wound Date of Service: 02/02/19 Chief Complaint: Multiple ulcers and leg swelling History of Wound: 63 year old male was seen for right heel ulcer with chronic osteomyelitis, right plantar heel ulcer. He continues to cover the site with an aperture pad. He denies fever, chill, nausea, vomiting. He will continue dressing as advised with Aquacel. He uses the compression pumps 2-3 times a day with significant edema reduction. He completed his vascular surgery angioplasty with Dr. Peng for the left lower extremity. He has received treatment at the lymphedema clinic as well. He uses CircAid compression wraps. He has followed with Dr. Peng as advised. He wears a right cam walker boot. His swelling and drainage to his leg have significantly improved since his yeast infection has cleared up. He is unaware of the new blister on his right foot. He relates he has a new toe ulcer that is pink and draining. He denies known in jury. Progress of Wound: Improving right forefoot ulcer site. Other site stable. New toe ulcer and adjacent blister - Physical Exam Vital Signs Temp Pulse Resp BP 98.0 F 59 L 18 152/72 H 01/26/19 15:42 01/26/19 15:42 01/26/19 15:42 01/26/19 15:42 General: Alert, Oriented x3, Cooperative, No apparent distress Extremities: No cyanosis, Capillary Refill Less than 3 Seconds, No Calf Tenderness, Diminished Peripheral Pulses, Edema, - - Left transmetatarsal amputation. Right hallux amputation Skin: Ulcer/ Wound - No purulence, erythema, streaking, odor, infection. Peripheral skin is hairless and atrophic. There is no deep tissue exposed. There is a serous filled blister to the lateral aspect of the right hallux amputation stump site. Upon drainage there is some hemorrhagic granulation tissue noted and the overlying skin was left intact as a biological barrier. There is also new skin discontinuity to the dorsal aspect of the right second toe with granulation tissue exposed with no deep joint or bone tissue exposed. There is no skin discontinuity to the left foot or bilateral legs Wound Measurements and Assessment WC - Nurse 1 - General Ulcer Measurement Start: 01/20/19 11:50 Freq: Status: Active Protocol: Activity Type Activity Date Activity User E-Sign Co-Sign Detail Recorded Client Recorded Date Recorded By Document 02/02/19 16:00 DV [id number] 02/02/19 16:08 DV 02/02/19 16:00 Wound Center Nurse 1 [Ulcer Assessment] #21 rt plantar -Combined with other wound No -Current Size (cm) - Length 1.0 -Current Size (cm) - Width 0.8 -Current Size (cm) - Depth 0.1 -Total Square Cm 0.80 -Photo Taken No -Epithelialization None Present -Tunneling No -Undermining/Tunneling No -Circular Undermining No -Classification - Thickness Full Thickness without Exposed Support Structure -Exudate Amt Medium -Exudate Type Serosanguineous -Wound Margin Indistinct, Non -Visible -Granulation Amt None Present (0 %) -Granulation Quality N/A -Slough/Fibrin Yes -Necrosis Amt Large (67-100%) -Necrotic Tissue Type Adherent Slough -Structure Exposed None/Limited to Skin Breakdown -Texture (Susy-wound Skin Appearance) Assessed, Scarring -Moisture (Susy-wound Skin Appearance Assessed, ) Weeping -Color (Susy-wound Skin Appearance) Assessed, Erythema -Temperature (Susy-wound Skin No Abnormality Appearance) (Pt Warm) -Tenderness on Palpation (Susy-wound No Skin Appearance) -Foul Odor after Cleansing No -Anesthetic Used 4% Lidocaine Solution 20-right posterior heel -Combined with other wound No -Current Size (cm) - Length 2.5 -Current Size (cm) - Width 2.2 -Current Size (cm) - Depth 0.5 -Total Square Cm 5.50 -Photo Taken No -Epithelialization None Present -Tunneling No -Undermining/Tunneling No -Circular Undermining No -Change in Wound Grade/Stage No Query Text:If change please identify the Stage/Grade in the comment (ie. S2 G3) -Exudate Amt Large -Exudate Type Serosanguineous -Wound Margin Indistinct, Non -Visible -Granulation Amt None Present (0 %) -Granulation Quality N/A -Slough/Fibrin Yes -Necrosis Amt Large (67-100%) -Necrotic Tissue Type Adherent Slough -Structure Exposed None/Limited to Skin Breakdown -Texture (Susy-wound Skin Appearance) Assessed, Localized Edema ,Scarring -Moisture (Susy-wound Skin Appearance Assessed, ) Weeping -Color (Susy-wound Skin Appearance) Assessed, Erythema -Temperature (Susy-wound Skin No Abnormality Appearance) (Pt Warm) -Tenderness on Palpation (Susy-wound No Skin Appearance) -Foul Odor after Cleansing No -Anesthetic Used 4% Lidocaine Solution #1 right medial heel -Combined with other wound No -Current Size (cm) - Length 1.0 -Current Size (cm) - Width 1.6 -Current Size (cm) - Depth 0.5 -Total Square Cm 1.60 -Photo Taken No -Epithelialization None Present -Tunneling No -Undermining/Tunneling No -Circular Undermining No -Classification - Thickness Full Thickness without Exposed Support Structure -Exudate Amt Large -Exudate Type Serosanguineous -Wound Margin Indistinct, Non -Visible -Granulation Amt None Present (0 %) -Granulation Quality N/A -Slough/Fibrin Yes -Necrosis Amt Large (67-100%) -Necrotic Tissue Type Adherent Slough -Structure Exposed None/Limited to Skin Breakdown -Texture (Susy-wound Skin Appearance) Assessed, Localized Edema ,Scarring -Moisture (Susy-wound Skin Appearance Assessed, ) Maceration, Weeping -Color (Susy-wound Skin Appearance) Assessed -Temperature (Susy-wound Skin No Abnormality Appearance) (Pt Warm) -Tenderness on Palpation (Susy-wound No Skin Appearance) -Foul Odor after Cleansing No -Anesthetic Used 4% Lidocaine Solution WC - Nurse 2 - General Ulcer CM Notes Start: 01/20/19 11:50 Freq: Status: Active Protocol: Activity Type Activity Date Activity User E-Sign Co-Sign Detail Recorded Client Recorded Date Recorded By Document 02/02/19 16:13 JF [id number] 02/02/19 16:23 NORRIS 02/02/19 16:13 Wound Center Nurse 2 [Procedure/Treatment] 27-right 2nd toe -Time 16:22 -Correct Patient Yes -Correct Side, Site, Position Yes -Correct Procedure Yes -Procedure Performed Yes -Type of Procedure Debridement -Clinical Debridement Subcutaneous -Post Debridement Size (cm) - Length 2.5 -Post Debridement Size (cm) - Width 1.3 -Post Debridement Size (cm) - Depth 0.1 -Total Square Cm 3.25 -Wound/Ulcer Outcome Not Healed -Ulcer Cleansing Rinsed/ Irrigated with Saline -Foul Odor after Cleansing No -Bioengineered Tissue No -Bleeding Controlled with Pressure -Offloading Yes -Type of Offloading Surgical Shoe -Treatment Response Procedure Tolerated Well #21 rt plantar -Time 16:14 -Correct Patient Yes -Correct Side, Site, Position Yes -Correct Procedure Yes -Procedure Performed Yes -Type of Procedure Debridement -Clinical Debridement Subcutaneous -Post Debridement Size (cm) - Length 1.2 -Post Debridement Size (cm) - Width 0.9 -Post Debridement Size (cm) - Depth 0.2 -Total Square Cm 1.08 -Wound/Ulcer Outcome Not Healed -Ulcer Cleansing Rinsed/ Irrigated with Saline -Foul Odor after Cleansing No -Bioengineered Tissue No -Bleeding Controlled with Pressure -Offloading Yes -Type of Offloading Surgical Shoe -Treatment Response Procedure Tolerated Well 20-right posterior heel -Time 16:14 -Correct Patient Yes -Correct Side, Site, Position Yes -Correct Procedure Yes -Procedure Performed Yes -Type of Procedure Debridement -Clinical Debridement Subcutaneous -Post Debridement Size (cm) - Length 1.2 -Post Debridement Size (cm) - Width 1.6 -Post Debridement Size (cm) - Depth 0.5 -Total Square Cm 1.92 -Wound/Ulcer Outcome Not Healed -Ulcer Cleansing Rinsed/ Irrigated with Saline -Foul Odor after Cleansing No -Bioengineered Tissue No -Bleeding Controlled with Pressure -Offloading Yes -Type of Offloading Surgical Shoe -Treatment Response Procedure Tolerated Well #1 right medial heel -Time 16:15 -Correct Patient Yes -Correct Side, Site, Position Yes -Correct Procedure Yes -Procedure Performed Yes -Type of Procedure Debridement -Clinical Debridement Subcutaneous -Post Debridement Size (cm) - Length 2.5 -Post Debridement Size (cm) - Width 2.3 -Post Debridement Size (cm) - Depth 0.5 -Total Square Cm 5.75 -Wound/Ulcer Outcome Not Healed -Ulcer Cleansing Rinsed/ Irrigated with Saline -Foul Odor after Cleansing No -Bioengineered Tissue No -Bleeding Controlled with Pressure -Offloading Yes -Type of Offloading Surgical Shoe -Treatment Response Procedure Tolerated Well [See Physician Procedure note for Specifics] Pain Scale: 0-10 Numeric [Pain] -Is Patient Pain Free? Yes Musculoskeletal: No Tenderness to Palpation of Joints or Extremities, Muscle Wasting Neurological: - - Lack of normal epicritic sensation light touch consistent with neuropathy Psych/Mental Status: Normal Affect, Appropriate Debridement Note Post-Debridement Measurements/Treatment WC - Nurse 2 - General Ulcer CM Notes Start: 01/20/19 11:50 Freq: Status: Active Protocol: Activity Type Activity Date Activity User E-Sign Co-Sign Detail Recorded Client Recorded Date Recorded By Document 01/26/19 16:04 [id number] 01/26/19 16:09 Document 02/02/19 16:13 JF [id number] 02/02/19 16:23 01/26/19 02/02/19 16:04 16:13 Wound Center Nurse 2 27-right 2nd toe -Time 16:22 -Correct Patient Yes -Correct Side, Site, Position Yes -Correct Procedure Yes -Procedure Performed Yes -Type of Procedure Debridement -Clinical Debridement Subcutaneous -Post Debridement Size (cm) - Length 2.5 -Post Debridement Size (cm) - Width 1.3 -Post Debridement Size (cm) - Depth 0.1 -Total Square Cm 3.25 -Wound/Ulcer Outcome Not Healed -Ulcer Cleansing Rinsed/ Irrigated with Saline -Foul Odor after Cleansing No -Bioengineered Tissue No -Bleeding Controlled with Pressure -Offloading Yes -Type of Offloading Surgical Shoe -Treatment Response Procedure Tolerated Well #26 RIGHT SECOND TOE -Time 16:06 -Correct Patient No -Correct Side, Site, Position No -Correct Procedure No -Procedure Performed No -Post Debridement Size (cm) - Length 0 -Post Debridement Size (cm) - Width 0 -Post Debridement Size (cm) - Depth 0 -Total Square Cm 0 -Wound/Ulcer Outcome Healed- Epithelialized #21 rt plantar -Time 16:07 16:14 -Correct Patient Yes Yes -Correct Side, Site, Position Yes Yes -Correct Procedure Yes Yes -Procedure Performed Yes Yes -Type of Procedure Debridement Debridement -Clinical Debridement Subcutaneous Subcutaneous -Post Debridement Size (cm) - Length 1.0 1.2 -Post Debridement Size (cm) - Width 0.8 0.9 -Post Debridement Size (cm) - Depth 0.2 0.2 -Total Square Cm 0.80 1.08 -Wound/Ulcer Outcome Not Healed Not Healed -Ulcer Cleansing Rinsed/ Rinsed/ Irrigated with Irrigated with Saline Saline -Foul Odor after Cleansing No No -Bioengineered Tissue No No -Bleeding Controlled with Pressure Pressure -Offloading Yes Yes -Type of Offloading Surgical Shoe Surgical Shoe -Treatment Response Procedure Procedure Tolerated Well Tolerated Well 20-right posterior heel -Time 16:07 16:14 -Correct Patient Yes Yes -Correct Side, Site, Position Yes Yes -Correct Procedure Yes Yes -Procedure Performed Yes Yes -Type of Procedure Debridement Debridement -Clinical Debridement Subcutaneous Subcutaneous -Post Debridement Size (cm) - Length 3.0 1.2 -Post Debridement Size (cm) - Width 7.8 1.6 -Post Debridement Size (cm) - Depth 0.3 0.5 -Total Square Cm 23.40 1.92 -Wound/Ulcer Outcome Not Healed Not Healed -Ulcer Cleansing Rinsed/ Rinsed/ Irrigated with Irrigated with Saline Saline -Foul Odor after Cleansing No No -Bioengineered Tissue No No -Bleeding Controlled with Pressure Pressure -Offloading Yes Yes -Type of Offloading Surgical Shoe Surgical Shoe -Treatment Response Procedure Procedure Tolerated Well Tolerated Well #1 right medial heel -Time 16:07 16:15 -Correct Patient Yes Yes -Correct Side, Site, Position Yes Yes -Correct Procedure Yes Yes -Procedure Performed Yes Yes -Type of Procedure Debridement Debridement -Clinical Debridement Subcutaneous Subcutaneous -Post Debridement Size (cm) - Length 1.3 2.5 -Post Debridement Size (cm) - Width 1.8 2.3 -Post Debridement Size (cm) - Depth 0.1 0.5 -Total Square Cm 2.34 5.75 -Wound/Ulcer Outcome Not Healed Not Healed -Ulcer Cleansing Rinsed/ Rinsed/ Irrigated with Irrigated with Saline Saline -Foul Odor after Cleansing No No -Bioengineered Tissue No No -Bleeding Controlled with Pressure Pressure -Offloading No Yes -Type of Offloading Surgical Shoe -Treatment Response Procedure Procedure Tolerated Well Tolerated Well Pain Scale: 0-10 Numeric Is Patient Pain Free? Yes Wound debrided: dorsal 2nd toe Laterality: Right Wound Grade/Stage: grade 1 Type of Debridement: Excisional debridement Anesthesia Used: 5% Lidocaine Gel Depth: in the subcutaneous layer Percentage of wound debrided: 100 Instrument Used: #15 blade Tissue Removed: fibrous, devitalized subcutaneous, biofilm, slough Severity: Fat Layer Exposed Amount of bleeding with debridement: Mild Bleeding Controlled with: Pressure Patient tolerated procedure well - Additional Wound Wound debrided: plantar heel Laterality: Right Wound Grade/Stage: grade 3 Type of Debridement: Excisional debridement Anesthesia Used: 5% Lidocaine Gel Depth: in the subcutaneous layer Percentage of wound debrided: 100 Instrument Used: #15 blade Tissue Removed: fibrous, devitalized subcutaneous, biofilm, slough Severity: Fat Layer Exposed Amount of bleeding with debridement: Mild Bleeding Controlled with: Pressure Patient tolerated procedure: Patient tolerated procedure well - Additional Wound Wound debrided: plantar heel Laterality: Right Wound Grade/Stage: grade 1 Type of Debridement: Excisional debridement Anesthesia Used: 5% Lidocaine Gel Depth: in the subcutaneous layer Percentage of wound debrided: 100 Instrument Used: #15 blade Tissue Removed: fibrous, devitalized subcutaneous, biofilm, slough Severity: Fat Layer Exposed Amount of bleeding with debridement: Mild Bleeding Controlled with: Pressure Patient tolerated procedure: Patient tolerated procedure well - Additional Wound Wound debrided: sub 1st metatarsal head Laterality: Right - g Wound Grade/Stage: grade 1 Type of Debridement: Excisional debridement Anesthesia Used: 5% Lidocaine Gel Depth: in the subcutaneous layer Percentage of wound debrided: 100 Instrument Used: #15 blade Tissue Removed: fibrous, devitalized subcutaneous, biofilm, slough Severity: Fat Layer Exposed Amount of bleeding with debridement: Mild Bleeding Controlled with: Pressure Patient tolerated procedure: Patient tolerated procedure well Assessment/Plan Active Problems Lymphedema (Chronic) Venous insufficiency (Chronic) Ulcer of right foot with fat layer exposed (Chronic) Blister of right foot (Acute) Obesity (Chronic) Lower extremity edema (Chronic) Type 2 diabetes mellitus with diabetic polyneuropathy (Chronic) Assessment: Right forefoot medial plantar ulcer -improving. Plantar posterior right heel ulcer stable. Plantar heel ulcer stable. Dorsal right second toe ulcer, stable. New right foot blister, no infection. Foot ulcer central lateral TMA site, means healed today. Diabetes with neuropathy. lymphedema and continued leg swelling with recent exacerbation. peripheral vacular disease. venous insufficiency Plan: I discussed his case and treatment plan. Subcutaneous excisional debridement was performed to ulcer sites as noted in the nursing clinical panel to the right foot. To continue daily dressing changes with Aquacel. Alcohol cleanse was used prior to drainage of right foot blister after verbal consent was obtained. No infection was noted. The skin was left intact as a biological barrier. To cover with a gauze. To maintain improved skin integrity by applying lac hydrin lotion to both legs daily. Continue circaid wraps bilateral legs daily; it is okay to apply tubigrip prior to application of CircAid foot wrap to better keep his wound dressings in place. To continue compression pump device daily; he is doing well with this. To proceed as previously advised with his lymphedema follow-up as advised. He is discharged from the [facility] at this time. Farrow compression garments to promote improved continued edema management at a more proximal level was approved for right lower extremity use; to use as advised. It is noted he was not approved for the left lower extremity because he did not meet qualifying criteria of open left leg current ulcer site. To continue Lasix use as advised by primary care physician. To continue with portion control for weight loss and proper glycemic control and nutritional supplementation to optimize healing. His hemoglobin A1c went from 9.0 to 7.4. To continue strict offloading to all these ulcer sites. He has a donut offloading pillow and he was advised to use this. To follow-up with Dr. Peng as advised for the recommended bilateral intervention, venous. His recent vascular intervention in the left lower extremity is noted. All of his questions were answered. He understands he is still at risk for limb loss. To follow-up at the wound care center in 1 - 2 weeks or call sooner if he has any questions or concerns. He is on a palliative care program.
== END 2019-02-12 23:59 ==
LOC: WC 15:45
PROVIDERS: Family Provider Family Medicine; PCP Family Medicine; Referring Provider Podiatrist; Visit Provider Podiatrist
DX: E11.621 Type 2 diabetes mellitus with foot ulcer (principal); E11.42 Type 2 diabetes mellitus with diabetic polyneuropathy; L97.512 Non-pressure chronic ulcer of other part of right foot with fat layer exposed; I89.0 Lymphedema, not elsewhere classified; I87.2 Venous insufficiency (chronic) (peripheral); E66.9 Obesity, unspecified; R60.0 Localized edema; M86.68 Other chronic osteomyelitis, other site; L97.412 Non-pressure chronic ulcer of right heel and midfoot with fat layer exposed; S90.821A Blister (nonthermal), right foot, initial encounter; X58.XXXA Exposure to other specified factors, initial encounter
CPT/HCPCS: 11042; 11045

== ENCOUNTER → 2019-02-28 10:52 | Outpatient (CLI) | payer MEDICARE, MEDICAID, SELFPAY ==
[2019-02-23 11:44] VITALS: BMI 53.1
--- NOTE | 2019-02-28 11:10 | RAD_ITS ---
STUDY: X-RAY - RIGHT FOOT CLINICAL: Male, 63 years old. Ulcer to the right heel, history of osteomyelitis. TECHNIQUE: 3 view(s) of the foot. COMPARISON: 06/21/2018. FINDINGS: Minimal plantar calcaneal spur, otherwise normal talus, calcaneus, and tarsal bones. No distinct erosive changes or destruction seen. Normal visualized subtalar, talonavicular, calcaneocuboid, tarsal and tarsometatarsal articulations. Normal metatarsi. The patient is status post amputation of the first toe from the level of the metatarsophalangeal joint. Normal second through fifth metatarsophalangeal joints. Normal interphalangeal joints and phalanges of the lesser toes. There is diffuse soft tissue swelling surrounding the distal calf, dorsum of the foot and posterior ankle. There is calcification throughout the distal portion of the Achilles tendon. There is soft tissue swelling along the posterior calcaneus with soft tissue defect consistent with known ulceration over the plantar surface. Vascular calcifications consistent with peripheral arterial disease. RAD/Foot min 3 Views IMPRESSION: Soft tissue swelling as discussed above. Minimal plantar calcaneal spur. Calcific tendinitis of the distal Achilles tendon. No acute fracture. No bony lesion. Note to be made that osteomyelitis cannot be excluded based on negative plain film findings. If this represents a clinical concern, follow-up with bone scan or MRI recommended. Electronically Signed: Lisette Bell MD at 0:14 EST , Service support ,
== END ==
PROVIDERS: Family Provider Family Medicine; PCP Family Medicine; Referring Provider Podiatrist; Visit Provider Podiatrist
DX: L97.519 Non-pressure chronic ulcer of other part of right foot with unspecified severity (principal); R60.9 Edema, unspecified
CPT/HCPCS: 73630

== ENCOUNTER 2019-03-15 15:45 | Outpatient (RCR) | payer MEDICARE, MEDICAID, SELFPAY ==
[2019-02-13 00:26] VITALS: BP 152/72; PULSE 59; RESP 18; TEMP 36.7
[2019-02-16 11:29] VITALS: BP 165/59; PULSE 50; RESP 18; TEMP 37.4; BMI 53.1
--- NOTE | 2019-02-16 16:54 | PN.PCM_ITS ---
(1) Lymphedema Status: Chronic Code(s): I89.0 - Lymphedema, not elsewhere classified (2) Venous insufficiency Status: Chronic Code(s): I87.2 - Venous insufficiency (chronic) (peripheral) (3) Ulcer of right foot with fat layer exposed Status: Chronic Code(s): L97.512 - Non-pressure chronic ulcer of other part of right foot with fat layer exposed (4) Lower extremity edema Status: Chronic Code(s): R60.0 - Localized edema (5) Type 2 diabetes mellitus with diabetic polyneuropathy Status: Chronic Code(s): E11.42 - Type 2 diabetes mellitus with diabetic polyneuropathy Type of Wound Date of Service: 02/16/19 Chief Complaint: Multiple ulcers and leg swelling History of Wound: 63 year old male was seen for right heel ulcer with chronic osteomyelitis, right plantar heel ulcer. He denies fever, chill, nausea, vomiting. He will continue dressing as advised with Aquacel. He uses the compression pumps 2-3 times a day with significant edema reduction. He completed his vascular surgery angioplasty with Dr. Peng for the left lower extremity. He has received treatment at the lymphedema clinic as well. He uses CircAid compression wraps. He has followed with Dr. Peng as advised. He wears a right cam walker boot. His swelling and drainage to his leg have significantly improved since his yeast infection has cleared up. His blister on his right foot has resolved. He denies new injuries since last visit. He is seeking a hospital bed approval for at home to allow him to better elevate his limbs and safety while getting out of his bed. Progress of Wound: Improving right forefoot ulcer site. Stable heel ulcer sites - Physical Exam Vital Signs Temp Pulse Resp BP 99.3 F H 50 L 18 165/59 H 02/16/19 11:29 02/16/19 11:29 02/16/19 11:29 02/16/19 11:29 General: Alert, Oriented x3, Cooperative, No apparent distress Extremities: No cyanosis, Capillary Refill Less than 3 Seconds, No Calf Tenderness, Diminished Peripheral Pulses, Edema Skin: Ulcer/ Wound - No purulence, erythema, string, odor, infection. The skin is hairless and atrophic. The blister has dried up with the biological barrier noted and there is no ulcer noted at the prior hallux amputation stump site. Wound Measurements and Assessment WC - Nurse 1 - General Ulcer Measurement Start: 02/16/19 11:29 Freq: Status: Active Protocol: Activity Type Activity Date Activity User E-Sign Co-Sign Detail Recorded Client Recorded Date Recorded By Document 02/16/19 11:29 [facility] [id number] 02/16/19 11:35 [facility] 02/16/19 11:29 Wound Center Nurse 1 [Ulcer Assessment] 27-right 2nd toe -Combined with other wound No -Current Size (cm) - Length 2.1 -Current Size (cm) - Width 1 -Current Size (cm) - Depth 0.2 -Total Square Cm 2.1 -Photo Taken No -Epithelialization None Present -Tunneling No -Undermining/Tunneling No -Circular Undermining No -Exudate Amt Small -Exudate Type Purulent -Wound Margin Distinct, Outline Attached -Granulation Amt Large (67-100%) -Granulation Quality Pale,Red -Slough/Fibrin Yes -Necrosis Amt Small (1-33%) -Necrotic Tissue Type Adherent Slough -Texture (Susy-wound Skin Appearance) Assessed, Scarring -Moisture (Susy-wound Skin Appearance Assessed,Dry/ ) Scaly -Color (Susy-wound Skin Appearance) Assessed -Temperature (Susy-wound Skin No Abnormality Appearance) (Pt Warm) -Tenderness on Palpation (Susy-wound No Skin Appearance) -Ulcer Cleansing SOAPY WATER -Foul Odor after Cleansing No -Anesthetic Used 4% Lidocaine Solution #21 rt plantar -Combined with other wound No -Current Size (cm) - Length 1.5 -Current Size (cm) - Width 0.6 -Current Size (cm) - Depth 0.2 -Total Square Cm 0.90 -Photo Taken No -Epithelialization None Present -Tunneling No -Undermining/Tunneling No -Circular Undermining No -Exudate Amt None Present -Wound Margin Distinct, Outline Attached -Granulation Amt Large (67-100%) -Granulation Quality Pale,Red -Slough/Fibrin Yes -Necrosis Amt Small (1-33%) -Necrotic Tissue Type Adherent Slough -Texture (Susy-wound Skin Appearance) Assessed,Callus ,Scarring -Moisture (Susy-wound Skin Appearance Assessed,Dry/ ) Scaly -Color (Susy-wound Skin Appearance) Assessed -Temperature (Susy-wound Skin No Abnormality Appearance) (Pt Warm) -Tenderness on Palpation (Susy-wound No Skin Appearance) -Ulcer Cleansing SOAPY WATER -Foul Odor after Cleansing No -Anesthetic Used 4% Lidocaine Solution 20-right posterior heel -Combined with other wound No -Current Size (cm) - Length 2 -Current Size (cm) - Width 2.8 -Current Size (cm) - Depth 0.2 -Total Square Cm 5.6 -Photo Taken No -Epithelialization None Present -Tunneling No -Undermining/Tunneling No -Circular Undermining No -Exudate Amt Small -Exudate Type Serosanguineous -Wound Margin Distinct, Outline Attached -Granulation Amt Large (67-100%) -Granulation Quality Pale,Red -Slough/Fibrin Yes -Necrosis Amt Small (1-33%) -Necrotic Tissue Type Adherent Slough -Texture (Susy-wound Skin Appearance) Assessed,Callus ,Scarring -Moisture (Susy-wound Skin Appearance Assessed,Dry/ ) Scaly -Color (Susy-wound Skin Appearance) Assessed -Temperature (Susy-wound Skin No Abnormality Appearance) (Pt Warm) -Tenderness on Palpation (Susy-wound No Skin Appearance) -Ulcer Cleansing SOAPY WATER -Foul Odor after Cleansing No -Anesthetic Used 4% Lidocaine Solution #1 right medial heel -Combined with other wound No -Current Size (cm) - Length 1.3 -Current Size (cm) - Width 1.1 -Current Size (cm) - Depth 0.3 -Total Square Cm 1.43 -Photo Taken No -Epithelialization None Present -Tunneling No -Undermining/Tunneling No -Circular Undermining No -Exudate Amt Small -Exudate Type Serosanguineous -Wound Margin Distinct, Outline Attached -Granulation Amt Large (67-100%) -Granulation Quality Pale,Red -Slough/Fibrin Yes -Necrosis Amt Small (1-33%) -Necrotic Tissue Type Adherent Slough -Texture (Susy-wound Skin Appearance) Assessed,Callus ,Scarring -Moisture (Susy-wound Skin Appearance Assessed,Dry/ ) Scaly -Color (Susy-wound Skin Appearance) Assessed -Temperature (Susy-wound Skin No Abnormality Appearance) (Pt Warm) -Tenderness on Palpation (Susy-wound No Skin Appearance) -Ulcer Cleansing SOAPY WATER -Foul Odor after Cleansing No -Anesthetic Used 4% Lidocaine Solution [Edema Assessment] -Lower Limb Edema Present Yes -Right Calf (cm) 58 -Right Ankle (cm) 30.2 WC - Nurse 2 - General Ulcer CM Notes Start: 02/16/19 11:29 Freq: Status: Active Protocol: Activity Type Activity Date Activity User E-Sign Co-Sign Detail Recorded Client Recorded Date Recorded By Document 02/16/19 12:12 [facility] [id number] 02/16/19 12:14 [facility] 02/16/19 12:12 Wound Center Nurse 2 [Procedure/Treatment] 27-right 2nd toe -Time 12:13 -Correct Patient Yes -Correct Side, Site, Position Yes -Correct Procedure Yes -Procedure Performed Yes -Type of Procedure Debridement -Clinical Debridement Subcutaneous -Post Debridement Size (cm) - Length 2.2 -Post Debridement Size (cm) - Width 1 -Post Debridement Size (cm) - Depth 0.2 -Total Square Cm 2.2 -Wound/Ulcer Outcome Not Healed -Ulcer Cleansing Rinsed/ Irrigated with Saline -Foul Odor after Cleansing No -Bioengineered Tissue No -Bleeding Controlled with Pressure -Offloading No -Treatment Response Procedure Tolerated Well #21 rt plantar -Time 12:13 -Correct Patient Yes -Correct Side, Site, Position Yes -Correct Procedure Yes -Procedure Performed Yes -Type of Procedure Debridement -Clinical Debridement Subcutaneous -Post Debridement Size (cm) - Length 1.5 -Post Debridement Size (cm) - Width 0.7 -Post Debridement Size (cm) - Depth 0.2 -Total Square Cm 1.05 -Wound/Ulcer Outcome Not Healed -Ulcer Cleansing Rinsed/ Irrigated with Saline -Foul Odor after Cleansing No -Bioengineered Tissue No -Bleeding Controlled with Pressure -Offloading No -Treatment Response Procedure Tolerated Well 20-right posterior heel -Time 12:13 -Correct Patient Yes -Correct Side, Site, Position Yes -Correct Procedure Yes -Procedure Performed Yes -Type of Procedure Debridement -Clinical Debridement Subcutaneous -Post Debridement Size (cm) - Length 2.1 -Post Debridement Size (cm) - Width 2.8 -Post Debridement Size (cm) - Depth 0.2 -Total Square Cm 5.88 -Wound/Ulcer Outcome Not Healed -Ulcer Cleansing Rinsed/ Irrigated with Saline -Foul Odor after Cleansing No -Bioengineered Tissue No -Bleeding Controlled with Pressure -Offloading No -Treatment Response Procedure Tolerated Well #1 right medial heel -Time 12:14 -Correct Patient Yes -Correct Side, Site, Position Yes -Correct Procedure Yes -Procedure Performed Yes -Type of Procedure Debridement -Clinical Debridement Subcutaneous -Post Debridement Size (cm) - Length 1.4 -Post Debridement Size (cm) - Width 1.2 -Post Debridement Size (cm) - Depth 0.3 -Total Square Cm 1.68 -Wound/Ulcer Outcome Not Healed -Ulcer Cleansing Rinsed/ Irrigated with Saline -Foul Odor after Cleansing No -Bioengineered Tissue No -Bleeding Controlled with Pressure -Offloading Yes -Type of Offloading Surgical Shoe -Treatment Response Procedure Tolerated Well [See Physician Procedure note for Specifics] Pain Scale: 0-10 Numeric [Pain] -Is Patient Pain Free? Yes Musculoskeletal: No Tenderness to Palpation of Joints or Extremities, Muscle Wasting Neurological: - - Lack of normal epicritic sensation light touch is consistent with neuropathy status Psych/Mental Status: Normal Affect, Appropriate Debridement Note Post-Debridement Measurements/Treatment WC - Nurse 2 - General Ulcer CM Notes Start: 02/16/19 11:29 Freq: Status: Active Protocol: Activity Type Activity Date Activity User E-Sign Co-Sign Detail Recorded Client Recorded Date Recorded By Document 02/16/19 12:12 [facility] [id number] 02/16/19 12:14 [facility] 02/16/19 12:12 Wound Center Nurse 2 27-right 2nd toe -Time 12:13 -Correct Patient Yes -Correct Side, Site, Position Yes -Correct Procedure Yes -Procedure Performed Yes -Type of Procedure Debridement -Clinical Debridement Subcutaneous -Post Debridement Size (cm) - Length 2.2 -Post Debridement Size (cm) - Width 1 -Post Debridement Size (cm) - Depth 0.2 -Total Square Cm 2.2 -Wound/Ulcer Outcome Not Healed -Ulcer Cleansing Rinsed/ Irrigated with Saline -Foul Odor after Cleansing No -Bioengineered Tissue No -Bleeding Controlled with Pressure -Offloading No -Treatment Response Procedure Tolerated Well #21 rt plantar -Time 12:13 -Correct Patient Yes -Correct Side, Site, Position Yes -Correct Procedure Yes -Procedure Performed Yes -Type of Procedure Debridement -Clinical Debridement Subcutaneous -Post Debridement Size (cm) - Length 1.5 -Post Debridement Size (cm) - Width 0.7 -Post Debridement Size (cm) - Depth 0.2 -Total Square Cm 1.05 -Wound/Ulcer Outcome Not Healed -Ulcer Cleansing Rinsed/ Irrigated with Saline -Foul Odor after Cleansing No -Bioengineered Tissue No -Bleeding Controlled with Pressure -Offloading No -Treatment Response Procedure Tolerated Well 20-right posterior heel -Time 12:13 -Correct Patient Yes -Correct Side, Site, Position Yes -Correct Procedure Yes -Procedure Performed Yes -Type of Procedure Debridement -Clinical Debridement Subcutaneous -Post Debridement Size (cm) - Length 2.1 -Post Debridement Size (cm) - Width 2.8 -Post Debridement Size (cm) - Depth 0.2 -Total Square Cm 5.88 -Wound/Ulcer Outcome Not Healed -Ulcer Cleansing Rinsed/ Irrigated with Saline -Foul Odor after Cleansing No -Bioengineered Tissue No -Bleeding Controlled with Pressure -Offloading No -Treatment Response Procedure Tolerated Well #1 right medial heel -Time 12:14 -Correct Patient Yes -Correct Side, Site, Position Yes -Correct Procedure Yes -Procedure Performed Yes -Type of Procedure Debridement -Clinical Debridement Subcutaneous -Post Debridement Size (cm) - Length 1.4 -Post Debridement Size (cm) - Width 1.2 -Post Debridement Size (cm) - Depth 0.3 -Total Square Cm 1.68 -Wound/Ulcer Outcome Not Healed -Ulcer Cleansing Rinsed/ Irrigated with Saline -Foul Odor after Cleansing No -Bioengineered Tissue No -Bleeding Controlled with Pressure -Offloading Yes -Type of Offloading Surgical Shoe -Treatment Response Procedure Tolerated Well Pain Scale: 0-10 Numeric Is Patient Pain Free? Yes Wound debrided: dorsal 2nd toe Laterality: Right Wound Grade/Stage: grade 1 Type of Debridement: Excisional debridement Anesthesia Used: 5% Lidocaine Gel Depth: in the subcutaneous layer Percentage of wound debrided: 100 Instrument Used: #15 blade Tissue Removed: fibrous, devitalized subcutaneous, biofilm, slough Severity: Fat Layer Exposed Amount of bleeding with debridement: Mild Bleeding Controlled with: Pressure Patient tolerated procedure well - Additional Wound Wound debrided: heel posterior Laterality: Right Wound Grade/Stage: grade 3 Type of Debridement: Excisional debridement Anesthesia Used: 5% Lidocaine Gel Depth: in the subcutaneous layer Percentage of wound debrided: 100 Instrument Used: #15 blade Tissue Removed: fibrous, devitalized subcutaneous, biofilm, slough Severity: Fat Layer Exposed Amount of bleeding with debridement: Mild Bleeding Controlled with: Pressure Patient tolerated procedure: Patient tolerated procedure well - Additional Wound Wound debrided: plantar heel Laterality: Right Wound Grade/Stage: grade 1 Type of Debridement: Excisional debridement Anesthesia Used: 5% Lidocaine Gel Depth: in the subcutaneous layer Percentage of wound debrided: 100 Instrument Used: #15 blade Tissue Removed: fibrous, devitalized subcutaneous, biofilm, slough Severity: Fat Layer Exposed Amount of bleeding with debridement: Mild Bleeding Controlled with: Pressure Patient tolerated procedure: Patient tolerated procedure well - Additional Wound Wound debrided: sub 1st metatarsal head Laterality: Right Wound Grade/Stage: grade 1 Type of Debridement: Excisional debridement Anesthesia Used: 5% Lidocaine Gel Depth: in the subcutaneous layer Percentage of wound debrided: 100 Instrument Used: #15 blade Tissue Removed: fibrous, devitalized subcutaneous, biofilm, slough Severity: Fat Layer Exposed Amount of bleeding with debridement: Mild Bleeding Controlled with: Pressure Patient tolerated procedure: Patient tolerated procedure well Assessment/Plan Assessment: Right forefoot medial plantar ulcer -improving. Plantar posterior right heel ulcer stable. Plantar heel ulcer stable. Dorsal right second toe ulcer, stable. resolved blister right foot. Foot ulcer central lateral TMA site, means healed today. Diabetes with neuropathy. lymphedema and continued leg swelling with recent exacerbation. peripheral vacular disease. venous insufficiency Plan: I discussed his case and treatment plan. Subcutaneous excisional debridement was performed to ulcer sites as noted in the nursing clinical panel to the right foot. To continue daily dressing changes with Aquacel. To maintain improved skin integrity by applying lac hydrin lotion to both legs daily. Continue circaid wraps bilateral legs daily; it is okay to apply t ubigrip prior to application of CircAid foot wrap to better keep his wound dressings in place. To continue compression pump device daily; he is doing well with this. To proceed as previously advised with his lymphedema follow-up as advised. He is discharged from the [facility] at this time. [place]arrow compression garments to promote improved continued edema management at a more proximal level was approved for right lower extremity use; to use as advised. It is noted he was not approved for the left lower extremity because he did not meet qualifying criteria of open left leg current ulcer site. To continue Lasix use as advised by primary care physician. To continue with portion control for weight loss and proper glycemic control and nutritional supplementation to optimize healing. His hemoglobin A1c went from 9.0 to 7.4. To continue strict offloading to all these ulcer sites. He has a donut offloading pillow and he was advised to use this. To follow-up with Dr. Peng as advised for the recommended bilateral intervention, venous. His recent vascular intervention in the left lower extremity is noted. All of his questions were answered. He understands he is still at risk for limb loss. To follow-up at the wound care center in 1 - 2 weeks or call sooner if he has any questions or concerns. He is on a palliative care program.
[2019-02-23 11:44] VITALS: BP 195/76; PULSE 69; RESP 18; TEMP 36.9; BMI 53.1
--- NOTE | 2019-02-23 13:15 | PCM.WC.PN ---
(1) Lymphedema Status: Chronic Current Visit: Yes Code(s): I89.0 - Lymphedema, not elsewhere classified (2) Venous insufficiency Status: Chronic Current Visit: Yes Code(s): I87.2 - Venous insufficiency (chronic) (peripheral) (3) Ulcer of right foot with fat layer exposed Status: Chronic Current Visit: Yes Code(s): L97.512 - Non-pressure chronic ulcer of other part of right foot with fat layer exposed (4) Lower extremity edema Status: Chronic Current Visit: Yes Code(s): R60.0 - Localized edema (5) Type 2 diabetes mellitus with diabetic polyneuropathy Status: Chronic Current Visit: Yes Code(s): E11.42 - Type 2 diabetes mellitus with diabetic polyneuropathy Type of Wound Date of Service: 02/23/19 Chief Complaint: Multiple ulcers and leg swelling History of Wound: 63 year old male was seen for right heel ulcer with chronic osteomyelitis, right plantar heel ulcer. He denies fever, chill, nausea, vomiting, loss of appetite. He will continue dressing as advised with Aquacel. He uses the compression pumps 2-3 times a day with significant edema reduction. He completed his vascular surgery angioplasty with Dr. Peng for the left lower extremity. He has received treatment at the lymphedema clinic as well. He uses CircAid compression wraps. He has followed with Dr. Peng as advised. He wears a right cam walker boot. His increased lower extremity swelling regardless of his increased Lasix use. He has new wounds noted to his right foot with skin peeling. He reports an odor on Thursday but not yesterday. He relates progressive decline in function and is unable to do most tasks at home including getting out of chairs on his own etc. Progress of Wound: Improving right forefoot ulcer site. Stable heel ulcer sites. New left leg ulcer. New left foot ulcer. New dorsal medial right foot ulcer. New right medial forefoot at prior blister site - Physical Exam Vital Signs Temp Pulse Resp BP 98.4 F 69 18 195/76 H 02/23/19 11:44 02/23/19 11:44 02/23/19 11:44 02/23/19 11:44 General: Alert, Oriented x3, Cooperative, No apparent distress HEENT: Atraumatic Extremities: No cyanosis, Capillary Refill Less than 3 Seconds, No Calf Tenderness - Increased bilateral lower extremities with weeping of the legs and feet, Diminished Peripheral Pulses, Edema Skin: Ulcer/ Wound - No purulence, erythema, string, odor, infection. His skin is indurated and increased edema is noted. New skin discontinuity to central left transmetatarsal amputation stump site and return and there is some hemorrhagic tissue this is very superficial. There are also new skin discontinuity to the left anterior leg, and right dorsal medial foot. The adjacent skin is hairless and atrophic with skin peeling and chronic changes and hyperpigmentation. There is no deep probing to bone or other structures. Wound Measurements and Assessment WC - Nurse 1 - General Ulcer Measurement Start: 02/16/19 11:29 Freq: Status: Active Protocol: Activity Type Activity Date Activity User E-Sign Co-Sign Detail Recorded Client Recorded Date Recorded By Document 02/23/19 11:44 [facility] [id number] 02/23/19 11:56 [facility] 02/23/19 11:44 Wound Center Nurse 1 [Ulcer Assessment] #28- R MEDIAL FOOT -Combined with other wound No -Current Size (cm) - Length 1.4 -Current Size (cm) - Width 1.2 -Current Size (cm) - Depth 0.1 -Total Square Cm 1.68 -Date of Last Picture (Recall this 02/23/19 field) -Photo Taken Yes -Epithelialization None Present -Tunneling No -Undermining/Tunneling No -Circular Undermining No -Exudate Amt Medium -Exudate Type Serosanguineous -Wound Margin Distinct, Outline Attached -Granulation Amt Large (67-100%) -Granulation Quality Pale,Red -Slough/Fibrin No -Necrosis Amt None Present (0 %) -Texture (Susy-wound Skin Appearance) Assessed,Callus ,Scarring -Moisture (Susy-wound Skin Appearance Assessed, ) Maceration,Dry/ Scaly -Color (Susy-wound Skin Appearance) Assessed, Erythema,Palor -Temperature (Susy-wound Skin No Abnormality Appearance) (Pt Warm) -Tenderness on Palpation (Susy-wound No Skin Appearance) -Ulcer Cleansing SOAPY WATER -Foul Odor after Cleansing No -Anesthetic Used 4% Lidocaine Solution 27-right 2nd toe -Combined with other wound No -Current Size (cm) - Length 1.2 -Current Size (cm) - Width 2 -Current Size (cm) - Depth 0.1 -Total Square Cm 2.4 -Photo Taken No -Epithelialization Small 1-33% -Tunneling No -Undermining/Tunneling No -Circular Undermining No -Exudate Amt Medium -Exudate Type Serosanguineous -Wound Margin Flat & Intact -Granulation Amt Large (67-100%) -Granulation Quality Pale,[place] -Slough/Fibrin Yes -Necrosis Amt Small (1-33%) -Necrotic Tissue Type Adherent Slough -Texture (Susy-wound Skin Appearance) Assessed, Scarring -Moisture (Susy-wound Skin Appearance Assessed,Dry/ ) Scaly -Color (Susy-wound Skin Appearance) Assessed -Temperature (Susy-wound Skin No Abnormality Appearance) (Pt Warm) -Tenderness on Palpation (Susy-wound No Skin Appearance) -Ulcer Cleansing soapy water -Foul Odor after Cleansing No -Anesthetic Used 4% Lidocaine Solution #21 rt plantar -Combined with other wound No -Current Size (cm) - Length 1 -Current Size (cm) - Width 0.8 -Current Size (cm) - Depth 0.2 -Total Square Cm 0.8 -Date of Last Picture (Recall this 02/23/19 field) -Photo Taken Yes -Epithelialization None Present -Tunneling No -Undermining/Tunneling No -Circular Undermining No -Exudate Amt Medium -Exudate Type Serosanguineous -Wound Margin Distinct, Outline Attached -Granulation Amt Medium (34-66%) -Granulation Quality Red -Slough/Fibrin Yes -Necrosis Amt Small (1-33%) -Necrotic Tissue Type Adherent Slough -Texture (Susy-wound Skin Appearance) Assessed,Callus ,Scarring -Moisture (Susy-wound Skin Appearance Assessed, ) Maceration,Dry/ Scaly -Color (Susy-wound Skin Appearance) Assessed,Palor -Temperature (Susy-wound Skin No Abnormality Appearance) (Pt Warm) -Tenderness on Palpation (Susy-wound No Skin Appearance) -Ulcer Cleansing soapy water -Foul Odor after Cleansing No -Anesthetic Used 4% Lidocaine Solution 20-right posterior heel -Combined with other wound No -Current Size (cm) - Length 2.4 -Current Size (cm) - Width 3 -Current Size (cm) - Depth 0.2 -Total Square Cm 7.2 -Date of Last Picture (Recall this 02/23/19 field) -Photo Taken Yes -Epithelialization None Present -Tunneling No -Undermining/Tunneling No -Circular Undermining No -Exudate Amt Large -Exudate Type Serosanguineous -Wound Margin Distinct, Outline Attached -Granulation Amt Medium (34-66%) -Granulation Quality Pale,Red -Slough/Fibrin Yes -Necrosis Amt Medium (34-66%) -Necrotic Tissue Type Adherent Slough -Texture (Susy-wound Skin Appearance) Assessed,Callus ,Scarring -Moisture (Susy-wound Skin Appearance Assessed, ) Maceration,Dry/ Scaly -Color (Susy-wound Skin Appearance) No Abnormality, Palor -Temperature (Susy-wound Skin No Abnormality Appearance) (Pt Warm) -Tenderness on Palpation (Susy-wound No Skin Appearance) -Ulcer Cleansing soapy water -Foul Odor after Cleansing No -Anesthetic Used 4% Lidocaine Solution #1 right medial heel -Combined with other wound No -Current Size (cm) - Length 1.2 -Current Size (cm) - Width 2 -Current Size (cm) - Depth 0.4 -Total Square Cm 2.4 -Date of Last Picture (Recall this 02/23/19 field) -Photo Taken Yes -Epithelialization None Present -Tunneling No -Undermining/Tunneling No -Circular Undermining No -Exudate Amt Medium -Exudate Type Serosanguineous -Wound Margin Distinct, Outline Attached -Granulation Amt Medium (34-66%) -Granulation Quality Pale,Red -Slough/Fibrin Yes -Necrosis Amt Medium (34-66%) -Necrotic Tissue Type Adherent Slough -Texture (Susy-wound Skin Appearance) Scarring -Moisture (Susy-wound Skin Appearance Assessed, ) Maceration,Dry/ Scaly -Color (Susy-wound Skin Appearance) Assessed,Palor -Temperature (Susy-wound Skin No Abnormality Appearance) (Pt Warm) -Tenderness on Palpation (Susy-wound No Skin Appearance) -Ulcer Cleansing SOAPY WATER -Foul Odor after Cleansing No -Anesthetic Used 4% Lidocaine Solution [Edema Assessment] -Lower Limb Edema Present Yes -Right Calf (cm) 57 -Right Ankle (cm) 30.6 -Left Calf (cm) 56.6 -Left Ankle (cm) 30 WC - Nurse 2 - General Ulcer CM Notes Start: 02/16/19 11:29 Freq: Status: Active Protocol: Activity Type Activity Date Activity User E-Sign Co-Sign Detail Recorded Client Recorded Date Recorded By Document 02/23/19 12:02 [facility] [id number] 02/23/19 12:16 [facility] 02/23/19 12:02 Wound Center Nurse 2 [Procedure/Treatment] 29-left anterior bernstein -Time 12:08 -Correct Patient Yes -Correct Side, Site, Position Yes -Correct Procedure Yes -Procedure Performed Yes -Type of Procedure Debridement -Clinical Debridement Subcutaneous -Post Debridement Size (cm) - Length 1.0 -Post Debridement Size (cm) - Width 0.7 -Post Debridement Size (cm) - Depth 0.2 -Total Square Cm 0.70 -Wound/Ulcer Outcome Not Healed -Ulcer Cleansing Rinsed/ Irrigated with Saline -Foul Odor after Cleansing No -Bioengineered Tissue No -Bleeding Controlled with Pressure -Offloading Yes -Type of Offloading Surgical Shoe -Treatment Response Procedure Tolerated Well #28- R MEDIAL FOOT -Time 12:05 -Correct Patient Yes -Correct Side, Site, Position Yes -Correct Procedure Yes -Procedure Performed Yes -Type of Procedure Debridement -Clinical Debridement Subcutaneous -Post Debridement Size (cm) - Length 1.5 -Post Debridement Size (cm) - Width 1.2 -Post Debridement Size (cm) - Depth 0.1 -Total Square Cm 1.80 -Wound/Ulcer Outcome Not Healed -Ulcer Cleansing Rinsed/ Irrigated with Saline -Foul Odor after Cleansing No -Bioengineered Tissue No -Bleeding Controlled with Pressure -Offloading Yes -Type of Offloading Surgical Shoe -Treatment Response Procedure Tolerated Well 27-right 2nd toe -Time 12:05 -Correct Patient Yes -Correct Side, Site, Position Yes -Correct Procedure Yes -Procedure Performed Yes -Type of Procedure Debridement -Clinical Debridement Subcutaneous -Post Debridement Size (cm) - Length 1.3 -Post Debridement Size (cm) - Width 2.1 -Post Debridement Size (cm) - Depth 0.1 -Total Square Cm 2.73 -Wound/Ulcer Outcome Not Healed -Ulcer Cleansing Rinsed/ Irrigated with Saline -Foul Odor after Cleansing No -Bioengineered Tissue No -Bleeding Controlled with Pressure -Offloading Yes -Type of Offloading Surgical Shoe -Treatment Response Procedure Tolerated Well #21 rt plantar -Time 12:06 -Correct Patient Yes -Correct Side, Site, Position Yes -Correct Procedure Yes -Procedure Performed Yes -Type of Procedure Debridement -Clinical Debridement Subcutaneous -Post Debridement Size (cm) - Length 1.1 -Post Debridement Size (cm) - Width 0.9 -Post Debridement Size (cm) - Depth 0.2 -Total Square Cm 0.99 -Wound/Ulcer Outcome Not Healed -Ulcer Cleansing Rinsed/ Irrigated with Saline -Foul Odor after Cleansing No -Bioengineered Tissue No -Bleeding Controlled with Pressure -Offloading Yes -Type of Offloading Surgical Shoe -Treatment Response Procedure Tolerated Well 20-right posterior heel -Time 12:06 -Correct Patient Yes -Correct Side, Site, Position Yes -Correct Procedure Yes -Procedure Performed Yes -Type of Procedure Debridement -Clinical Debridement Subcutaneous -Post Debridement Size (cm) - Length 2.5 -Post Debridement Size (cm) - Width 3 -Post Debridement Size (cm) - Depth 0.2 -Total Square Cm 7.5 -Wound/Ulcer Outcome Not Healed -Ulcer Cleansing Rinsed/ Irrigated with Saline -Foul Odor after Cleansing No -Bioengineered Tissue No -Bleeding Controlled with Pressure -Offloading Yes -Type of Offloading Surgical Shoe -Treatment Response Procedure Tolerated Well #1 right medial heel -Time 12:06 -Correct Patient Yes -Correct Side, Site, Position Yes -Correct Procedure Yes -Procedure Performed Yes -Type of Procedure Debridement -Clinical Debridement Subcutaneous -Post Debridement Size (cm) - Length 1.3 -Post Debridement Size (cm) - Width 2.1 -Post Debridement Size (cm) - Depth 0.4 -Total Square Cm 2.73 -Wound/Ulcer Outcome Not Healed -Ulcer Cleansing Rinsed/ Irrigated with Saline -Foul Odor after Cleansing No -Bioengineered Tissue No -Bleeding Controlled with Pressure -Offloading Yes -Type of Offloading Surgical Shoe -Treatment Response Procedure Tolerated Well [See Physician Procedure note for Specifics] Pain Scale: 0-10 Numeric [Pain] -Is Patient Pain Free? Yes Musculoskeletal: No Tenderness to Palpation of Joints or Extremities, Muscle Wasting, - - Compartment soft to palpate right lower extremity and left lower extremity Neurological: - - Lack of normal epicritic sensation light touch is consistent with neuropathy status Psych/Mental Status: Normal Affect, Appropriate Debridement Note Post-Debridement Measurements/Treatment WC - Nurse 2 - General Ulcer CM Notes Start: 02/16/19 11:29 Freq: Status: Active Protocol: Activity Type Activity Date Activity User E-Sign Co-Sign Detail Recorded Client Recorded Date Recorded By Document 02/16/19 12:12 [facility] [id number] 02/16/19 12:14 Document 02/23/19 12:02 [facility] [id number] 02/23/19 12:16 02/16/19 02/23/19 12:12 12:02 Wound Center Nurse 2 29-left anterior bernstein -Time 12:08 -Correct Patient Yes -Correct Side, Site, Position Yes -Correct Procedure Yes -Procedure Performed Yes -Type of Procedure Debridement -Clinical Debridement Subcutaneous -Post Debridement Size (cm) - Length 1.0 -Post Debridement Size (cm) - Width 0.7 -Post Debridement Size (cm) - Depth 0.2 -Total Square Cm 0.70 -Wound/Ulcer Outcome Not Healed -Ulcer Cleansing Rinsed/ Irrigated with Saline -Foul Odor after Cleansing No -Bioengineered Tissue No -Bleeding Controlled with Pressure -Offloading Yes -Type of Offloading Surgical Shoe -Treatment Response Procedure Tolerated Well #28- R MEDIAL FOOT -Time 12:05 -Correct Patient Yes -Correct Side, Site, Position Yes -Correct Procedure Yes -Procedure Performed Yes -Type of Procedure Debridement -Clinical Debridement Subcutaneous -Post Debridement Size (cm) - Length 1.5 -Post Debridement Size (cm) - Width 1.2 -Post Debridement Size (cm) - Depth 0.1 -Total Square Cm 1.80 -Wound/Ulcer Outcome Not Healed -Ulcer Cleansing Rinsed/ Irrigated with Saline -Foul Odor after Cleansing No -Bioengineered Tissue No -Bleeding Controlled with Pressure -Offloading Yes -Type of Offloading Surgical Shoe -Treatment Response Procedure Tolerated Well 27-right 2nd toe -Time 12:13 12:05 -Correct Patient Yes Yes -Correct Side, Site, Position Yes Yes -Correct Procedure Yes Yes -Procedure Performed Yes Yes -Type of Procedure Debridement Debridement -Clinical Debridement Subcutaneous Subcutaneous -Post Debridement Size (cm) - Length 2.2 1.3 -Post Debridement Size (cm) - Width 1 2.1 -Post Debridement Size (cm) - Depth 0.2 0.1 -Total Square Cm 2.2 2.73 -Wound/Ulcer Outcome Not Healed Not Healed -Ulcer Cleansing Rinsed/ Rinsed/ Irrigated with Irrigated with Saline Saline -Foul Odor after Cleansing No No -Bioengineered Tissue No No -Bleeding Controlled with Pressure Pressure -Offloading No Yes -Type of Offloading Surgical Shoe -Treatment Response Procedure Procedure Tolerated Well Tolerated Well #21 rt plantar -Time 12:13 12:06 -Correct Patient Yes Yes -Correct Side, Site, Position Yes Yes -Correct Procedure Yes Yes -Procedure Performed Yes Yes -Type of Procedure Debridement Debridement -Clinical Debridement Subcutaneous Subcutaneous -Post Debridement Size (cm) - Length 1.5 1.1 -Post Debridement Size (cm) - Width 0.7 0.9 -Post Debridement Size (cm) - Depth 0.2 0.2 -Total Square Cm 1.05 0.99 -Wound/Ulcer Outcome Not Healed Not Healed -Ulcer Cleansing Rinsed/ Rinsed/ Irrigated with Irrigated with Saline Saline -Foul Odor after Cleansing No No -Bioengineered Tissue No No -Bleeding Controlled with Pressure Pressure -Offloading No Yes -Type of Offloading Surgical Shoe -Treatment Response Procedure Procedure Tolerated Well Tolerated Well 20-right posterior heel -Time 12:13 12:06 -Correct Patient Yes Yes -Correct Side, Site, Position Yes Yes -Correct Procedure Yes Yes -Procedure Performed Yes Yes -Type of Procedure Debridement Debridement -Clinical Debridement Subcutaneous Subcutaneous -Post Debridement Size (cm) - Length 2.1 2.5 -Post Debridement Size (cm) - Width 2.8 3 -Post Debridement Size (cm) - Depth 0.2 0.2 -Total Square Cm 5.88 7.5 -Wound/Ulcer Outcome Not Healed Not Healed -Ulcer Cleansing Rinsed/ Rinsed/ Irrigated with Irrigated with Saline Saline -Foul Odor after Cleansing No No -Bioengineered Tissue No No -Bleeding Controlled with Pressure Pressure -Offloading No Yes -Type of Offloading Surgical Shoe -Treatment Response Procedure Procedure Tolerated Well Tolerated Well #1 right medial heel -Time 12:14 12:06 -Correct Patient Yes Yes -Correct Side, Site, Position Yes Yes -Correct Procedure Yes Yes -Procedure Performed Yes Yes -Type of Procedure Debridement Debridement -Clinical Debridement Subcutaneous Subcutaneous -Post Debridement Size (cm) - Length 1.4 1.3 -Post Debridement Size (cm) - Width 1.2 2.1 -Post Debridement Size (cm) - Depth 0.3 0.4 -Total Square Cm 1.68 2.73 -Wound/Ulcer Outcome Not Healed Not Healed -Ulcer Cleansing Rinsed/ Rinsed/ Irrigated with Irrigated with Saline Saline -Foul Odor after Cleansing No No -Bioengineered Tissue No No -Bleeding Controlled with Pressure Pressure -Offloading Yes Yes -Type of Offloading Surgical Shoe Surgical Shoe -Treatment Response Procedure Procedure Tolerated Well Tolerated Well Pain Scale: 0-10 Numeric Is Patient Pain Free? Yes Yes Wound debrided: dorsal 2nd toe Laterality: Right Wound Grade/Stage: grade 1 Type of Debridement: Excisional debridement Anesthesia Used: 5% Lidocaine Gel Depth: in the subcutaneous layer Percentage of wound debrided: 100 Instrument Used: #15 blade Tissue Removed: fibrous, devitalized subcutaneous, biofilm, slough Severity: Fat Layer Exposed Amount of bleeding with debridement: Mild Bleeding Controlled with: Pressure Patient tolerated procedure well - Additional Wound Wound debrided: medial forefoot returned Laterality: Right Wound Grade/Stage: grade 1 Type of Debridement: Excisional debridement Anesthesia Used: 5% Lidocaine Gel Depth: in the subcutaneous layer Percentage of wound debrided: 100 Instrument Used: #15 blade Tissue Removed: fibrous, devitalized subcutaneous, biofilm, slough Severity: Fat Layer Exposed Amount of bleeding with debridement: Mild Bleeding Controlled with: Pressure Patient tolerated procedure: Patient tolerated procedure well - Additional Wound Wound debrided: dorsal medial foot Laterality: Right Wound Grade/Stage: grade 1 Type of Debridement: Excisional debridement Anesthesia Used: 5% Lidocaine Gel Depth: in the subcutaneous layer Percentage of wound debrided: 100 Instrument Used: #15 blade Tissue Removed: fibrous, devitalized subcutaneous, biofilm, slough Severity: Fat Layer Exposed Amount of bleeding with debridement: Mild Bleeding Controlled with: Pressure Patient tolerated procedure: Patient tolerated procedure well - Additional Wound Wound debrided: sub 1st metatarsal head Laterality: Right Wound Grade/Stage: grade 1 Type of Debridement: Excisional debridement Anesthesia Used: 5% Lidocaine Gel Depth: in the subcutaneous layer Percentage of wound debrided: 100 Instrument Used: #15 blade Tissue Removed: fibrous, devitalized subcutaneous, biofilm, slough Severity: Fat Layer Exposed Amount of bleeding with debridement: Mild Bleeding Controlled with: Pressure Patient tolerated procedure: Patient tolerated procedure well - Additional Wound Wound debrided: plantar heel (post lat) Laterality: Right Wound Grade/Stage: grade 3 Type of Debridement: Excisional debridement Anesthesia Used: 5% Lidocaine Gel Depth: in the subcutaneous layer Percentage of wound debrided: 100 Instrument Used: #15 blade Tissue Removed: fibrous, devitalized subcutaneous, biofilm, slough Severity: Fat Layer Exposed Amount of bleeding with debridement: Mild Bleeding Controlled with: Pressure Patient tolerated procedure: Patient tolerated procedure well - Additional Wound Wound debrided: plantar heel other Laterality: Right Wound Grade/Stage: grade 1 Type of Debridement: Excisional debridement Anesthesia Used: 5% Lidocaine Gel Depth: in the subcutaneous layer Percentage of wound debrided: 100 Instrument Used: #15 blade Tissue Removed: fibrous, devitalized subcutaneous, biofilm, slough Severity: Fat Layer Exposed Amount of bleeding with debridement: Mild Bleeding Controlled with: Pressure Patient tolerated procedure: Patient tolerated procedure well Assessment/Plan Active Problems Lymphedema (Chronic) Venous insufficiency (Chronic) Ulcer of right foot with fat layer exposed (Chronic) Lower extremity edema (Chronic) Type 2 diabetes mellitus with diabetic polyneuropathy (Chronic) Assessment: Right forefoot medial plantar ulcer. New right medial distal forefoot ulcer. New dorsal medial right foot ulcer. New left leg ulcer. New left foot ulcer. Plantar posterior right heel ulcer stable. Plantar heel ulcer stable. Dorsal right second toe ulcer, stable. resolved blister right foot. Foot ulcer central lateral TMA site, means healed today. Diabetes with neuropathy. lymphedema and continued leg swelling with recent exacerbation. peripheral vacular disease. venous insufficiency Plan: I discussed his case and treatment plan. Subcutaneous excisional debridement was performed to ulcer sites as noted in the nursing clinical panel to the right foot. To continue daily dressing changes with Aquacel. His new ulcer sites are noted. To maintain improved skin integrity by applying lac hydrin lotion to both legs daily. Continue circaid wraps bilateral legs daily; it is okay to apply tubigrip prior to application of CircAid foot wrap to better keep his wound dressings in place. To continue compression pump device daily; he is doing well with this. To proceed as previously advised with his lymphedema follow-up as advised. He is [facility] from [facility] at this time. [place] compression garments to promote improved continued edema management at a more proximal level was approved for right lower extremity use; to use as advised. It is noted he was not approved for the left lower extremity because he did not meet qualifying criteria of open left leg current ulcer site. To continue Lasix use as advised by primary care physician. To follow-up with primary care physician within the next month for progressive deconditioning status, edema management and also for medication refills. He relates he will run out of all his medication by the end of the month. He is reassured that I do not notice any odor today or leticia signs of infection. However given his report of odor coming from the foot in conjunction with increased edema, an x-ray was ordered of the right foot and wound cultures were also obtained. The wounds were also cleaned to remove peripheral maceration as well. I will monitor for the results of these tests and will call if further action is warranted. He will also monitor for signs of worsening or development of local or systemic illness. To continue with portion control for weight loss and proper glycemic control and nutritional supplementation to optimize healing. His hemoglobin A1c went from 9.0 to 7.4. To continue strict offloading to all these ulcer sites. He has a donut offloading pillow and he was advised to use this. To follow-up with Dr. Peng as advised for the recommended bilateral intervention, venous. His recent vascular intervention in the left lower extremity is noted. All of his questions were answered. He understands he is still at risk for limb loss. To follow-up at the wound care center in 1 - 2 weeks or call sooner if he has any questions or concerns. He is on a palliative care program.
[2019-02-23 19:12] LABS: M R Staph aureus DNA By PCR Negative (Negative); Probe Check PASS; Specimen Processing Control PASS; Staph aureus DNA By PCR POSITIVE (Negative)
[2019-03-02 12:01] VITALS: BP 146/49; PULSE 62; RESP 16; TEMP 36.5; BMI 53.1
--- NOTE | 2019-03-02 13:25 | PN.PCM_ITS ---
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: Chronic Code(s): L97.512 - Non-pressure chronic ulcer of other part of right foot with fat layer exposed (2) Lymphedema Status: Chronic Code(s): I89.0 - Lymphedema, not elsewhere classified (3) Venous insufficiency Status: Chronic Code(s): I87.2 - Venous insufficiency (chronic) (peripheral) (4) Lower extremity edema Status: Chronic Code(s): R60.0 - Localized edema (5) Type 2 diabetes mellitus with diabetic polyneuropathy Status: Chronic Code(s): E11.42 - Type 2 diabetes mellitus with diabetic polyneuropathy Type of Wound Date of Service: 03/02/19 Chief Complaint: Multiple ulcers and leg swelling History of Wound: 63 year old male was seen for right heel ulcer with chronic osteomyelitis, right plantar heel ulcer, right forefoot ulcers and left leg ulcer. He denies fever, chill, nausea, vomiting, loss of appetite. He will continue dressing as advised with Aquacel. He uses the compression pumps 2-3 times a day with significant edema reduction. He completed his vascular surgery angioplasty with Dr. Peng for the left lower extremity. He has received treatment at the lymphedema clinic as well. He uses CircAid compression wraps. He has followed with Dr. Peng as advised. He wears a right cam walker boot. His increased lower extremity swelling regardless of his increased Lasix use. He did not make his appointment to follow-up on therapy for deconditioning rehabilitation. Progress of Wound: Stable - Physical Exam Vital Signs Temp Pulse Resp BP 97.7 F L 62 16 146/49 H 03/02/19 12:03/02/19 12:03/02/19 12:03/02/19 12:01 General: Alert, Oriented x3, Cooperative, No apparent distress Extremities: No cyanosis, Capillary Refill Less than 3 Seconds, No Calf Tenderness, Diminished Peripheral Pulses, Edema, - - Transmetatarsal amputation left. Bilateral lower extremity edema and lymphedema Skin: Ulcer/ Wound - No purulence, erythema, streaking, odor, infection. Wound Measurements and Assessment WC - Nurse 1 - General Ulcer Measurement Start: 02/16/19 11:29 Freq: Status: Active Protocol: Activity Type Activity Date Activity User E-Sign Co-Sign Detail Recorded Client Recorded Date Recorded By Document 03/02/19 12:01 [facility] [id number] 03/02/19 12:10 [facility] 03/02/19 12:01 Wound Center Nurse 1 [Ulcer Assessment] 29-left anterior bernstein -Combined with other wound No -Current Size (cm) - Length 1.2 -Current Size (cm) - Width 2 -Current Size (cm) - Depth 0.1 -Total Square Cm 2.4 -Photo Taken No -Epithelialization Small 1-33% -Tunneling No -Undermining/Tunneling No -Circular Undermining No -Exudate Amt Medium -Exudate Type Serous -Wound Margin Flat & Intact -Granulation Amt Large (67-100%) -Granulation Quality Claude -Slough/Fibrin No -Necrosis Amt None Present (0 %) -Texture (Susy-wound Skin Appearance) Assessed, Scarring -Moisture (Susy-wound Skin Appearance Assessed, ) Weeping -Color (Susy-wound Skin Appearance) Assessed, Hemosiderin Staining -Temperature (Susy-wound Skin No Abnormality Appearance) (Pt Warm) -Tenderness on Palpation (Susy-wound No Skin Appearance) -Ulcer Cleansing soapy water -Foul Odor after Cleansing No -Anesthetic Used 4% Lidocaine Solution #28- R MEDIAL FOOT -Combined with other wound No -Current Size (cm) - Length 12 -Current Size (cm) - Width 4.6 -Current Size (cm) - Depth 0.1 -Total Square Cm 55.2 -Photo Taken No -Epithelialization None Present -Tunneling No -Undermining/Tunneling No -Circular Undermining No -Exudate Amt Medium -Exudate Type Serosanguineous -Wound Margin Distinct, Outline Attached -Granulation Amt Small (1-33%) -Granulation Quality Claude -Slough/Fibrin Yes -Necrosis Amt Large (67-100%) -Necrotic Tissue Type Adherent Slough -Texture (Susy-wound Skin Appearance) Assessed, Excoriation, Localized Edema ,Scarring -Moisture (Susy-wound Skin Appearance Assessed, ) Maceration, Weeping,Dry/ Scaly -Color (Susy-wound Skin Appearance) Assessed, Hemosiderin Staining,Palor -Temperature (Susy-wound Skin No Abnormality Appearance) (Pt Warm) -Tenderness on Palpation (Susy-wound No Skin Appearance) -Ulcer Cleansing soapy water -Foul Odor after Cleansing No -Anesthetic Used 4% Lidocaine Solution 27-right 2nd toe -Combined with other wound No -Current Size (cm) - Length 2.4 -Current Size (cm) - Width 2 -Current Size (cm) - Depth 0.1 -Total Square Cm 4.8 -Photo Taken No -Epithelialization Small 1-33% -Tunneling No -Undermining/Tunneling No -Circular Undermining No -Exudate Amt Small -Exudate Type Serosanguineous -Wound Margin Distinct, Outline Attached -Granulation Amt Medium (34-66%) -Granulation Quality Claude -Slough/Fibrin Yes -Necrosis Amt Medium (34-66%) -Necrotic Tissue Type Adherent Slough -Texture (Susy-wound Skin Appearance) Assessed, Scarring -Moisture (Susy-wound Skin Appearance Assessed, ) Maceration,Dry/ Scaly -Color (Susy-wound Skin Appearance) Assessed,Palor -Temperature (Susy-wound Skin No Abnormality Appearance) (Pt Warm) -Tenderness on Palpation (Susy-wound No Skin Appearance) -Ulcer Cleansing soapy water -Foul Odor after Cleansing No -Anesthetic Used 4% Lidocaine Solution #21 rt plantar -Combined with other wound No -Current Size (cm) - Length 0.8 -Current Size (cm) - Width 0.7 -Current Size (cm) - Depth 0.2 -Total Square Cm 0.56 -Photo Taken No -Epithelialization Small 1-33% -Tunneling No -Undermining/Tunneling No -Circular Undermining No -Exudate Amt Small -Exudate Type Serosanguineous -Wound Margin Distinct, Outline Attached -Granulation Amt Medium (34-66%) -Granulation Quality Red -Slough/Fibrin Yes -Necrosis Amt Medium (34-66%) -Necrotic Tissue Type Adherent Slough -Texture (Susy-wound Skin Appearance) Callus,Scarring -Moisture (Susy-wound Skin Appearance Assessed, ) Maceration,Dry/ Scaly -Color (Susy-wound Skin Appearance) Assessed,Palor -Temperature (Susy-wound Skin No Abnormality Appearance) (Pt Warm) -Tenderness on Palpation (Susy-wound No Skin Appearance) -Ulcer Cleansing soapywater -Foul Odor after Cleansing No -Anesthetic Used 4% Lidocaine Solution 20-right posterior heel -Combined with other wound No -Current Size (cm) - Length 2.5 -Current Size (cm) - Width 2.3 -Current Size (cm) - Depth 0.3 -Total Square Cm 5.75 -Photo Taken No -Epithelialization Small 1-33% -Tunneling No -Exudate Amt Medium -Exudate Type Serosanguineous -Wound Margin Distinct, Outline Attached -Granulation Amt Large (67-100%) -Granulation Quality Claude -Slough/Fibrin Yes -Necrosis Amt Small (1-33%) -Necrotic Tissue Type Adherent Slough -Texture (Susy-wound Skin Appearance) Assessed,Callus ,Scarring -Moisture (Susy-wound Skin Appearance Assessed, ) Maceration -Color (Susy-wound Skin Appearance) Assessed,Palor -Temperature (Susy-wound Skin No Abnormality Appearance) (Pt Warm) -Tenderness on Palpation (Susy-wound No Skin Appearance) -Ulcer Cleansing soapy water -Foul Odor after Cleansing No -Anesthetic Used 4% Lidocaine Solution #1 right medial heel -Combined with other wound No -Current Size (cm) - Length 1.2 -Current Size (cm) - Width 2 -Current Size (cm) - Depth 0.3 -Total Square Cm 2.4 -Photo Taken No -Epithelialization None Present -Tunneling No -Undermining/Tunneling No -Circular Undermining No -Exudate Amt Medium -Exudate Type Serosanguineous -Wound Margin Distinct, Outline Attached -Granulation Amt Medium (34-66%) -Granulation Quality Pale,Red -Slough/Fibrin Yes -Necrosis Amt Large (67-100%) -Necrotic Tissue Type Adherent Slough -Texture (Susy-wound Skin Appearance) Assessed, Scarring -Moisture (Susy-wound Skin Appearance Assessed, ) Maceration,Dry/ Scaly -Color (Susy-wound Skin Appearance) Assessed,Palor -Temperature (Susy-wound Skin No Abnormality Appearance) (Pt Warm) -Tenderness on Palpation (Susy-wound No Skin Appearance) -Ulcer Cleansing soapy water -Foul Odor after Cleansing No -Anesthetic Used 4% Lidocaine Solution WC - Nurse 2 - General Ulcer CM Notes Start: 02/16/19 11:29 Freq: Status: Active Protocol: Activity Type Activity Date Activity User E-Sign Co-Sign Detail Recorded Client Recorded Date Recorded By Document 03/02/19 12:20 NORRIS [id number] 03/02/19 12:24 NORRIS 03/02/19 12:20 Wound Center Nurse 2 [Procedure/Treatment] 29-left anterior bernstein -Time 12:20 -Correct Patient Yes -Correct Side, Site, Position Yes -Correct Procedure Yes -Procedure Performed Yes -Type of Procedure Debridement -Clinical Debridement Subcutaneous -Post Debridement Size (cm) - Length 1.2 -Post Debridement Size (cm) - Width 2.1 -Post Debridement Size (cm) - Depth 0.1 -Total Square Cm 2.52 -Wound/Ulcer Outcome Not Healed -Ulcer Cleansing Rinsed/ Irrigated with Saline -Foul Odor after Cleansing No -Bioengineered Tissue No -Bleeding Controlled with Pressure -Offloading Yes -Type of Offloading Surgical Shoe -Treatment Response Procedure Tolerated Well #28- R MEDIAL FOOT -Time 12:20 -Correct Patient Yes -Correct Side, Site, Position Yes -Correct Procedure Yes -Procedure Performed Yes -Type of Procedure Debridement -Clinical Debridement Subcutaneous -Post Debridement Size (cm) - Length 12 -Post Debridement Size (cm) - Width 4.7 -Post Debridement Size (cm) - Depth 0.1 -Total Square Cm 56.4 -Wound/Ulcer Outcome Not Healed -Ulcer Cleansing Rinsed/ Irrigated with Saline -Foul Odor after Cleansing No -Bioengineered Tissue No -Bleeding Controlled with Pressure -Offloading Yes -Type of Offloading Surgical Shoe -Treatment Response Procedure Tolerated Well 27-right 2nd toe -Time 12:21 -Correct Patient Yes -Correct Side, Site, Position Yes -Correct Procedure Yes -Procedure Performed Yes -Type of Procedure Debridement -Clinical Debridement Subcutaneous -Post Debridement Size (cm) - Length 2.5 -Post Debridement Size (cm) - Width 2.0 -Post Debridement Size (cm) - Depth 0.1 -Total Square Cm 5.00 -Wound/Ulcer Outcome Not Healed -Ulcer Cleansing Rinsed/ Irrigated with Saline -Foul Odor after Cleansing No -Bioengineered Tissue No -Bleeding Controlled with Pressure -Offloading Yes -Type of Offloading Surgical Shoe -Treatment Response Procedure Tolerated Well #21 rt plantar -Time 12:21 -Correct Patient Yes -Correct Side, Site, Position Yes -Correct Procedure Yes -Procedure Performed Yes -Type of Procedure Debridement -Clinical Debridement Subcutaneous -Post Debridement Size (cm) - Length 0.8 -Post Debridement Size (cm) - Width 0.8 -Post Debridement Size (cm) - Depth 0.2 -Total Square Cm 0.64 -Wound/Ulcer Outcome Not Healed -Ulcer Cleansing Rinsed/ Irrigated with Saline -Foul Odor after Cleansing No -Bioengineered Tissue No -Bleeding Controlled with Pressure -Offloading Yes -Type of Offloading Surgical Shoe -Treatment Response Procedure Tolerated Well 20-right posterior heel -Time 12:22 -Correct Patient Yes -Correct Side, Site, Position Yes -Correct Procedure Yes -Procedure Performed Yes -Type of Procedure Debridement -Clinical Debridement Subcutaneous -Post Debridement Size (cm) - Length 2.5 -Post Debridement Size (cm) - Width 2.4 -Post Debridement Size (cm) - Depth 0.3 -Total Square Cm 6.00 -Wound/Ulcer Outcome Not Healed -Ulcer Cleansing Rinsed/ Irrigated with Saline -Foul Odor after Cleansing No -Bioengineered Tissue No -Bleeding Controlled with Pressure -Offloading Yes -Type of Offloading Surgical Shoe -Treatment Response Procedure Tolerated Well #1 right medial heel -Time 12:22 -Correct Patient Yes -Correct Side, Site, Position Yes -Correct Procedure Yes -Procedure Performed Yes -Type of Procedure Debridement -Clinical Debridement Subcutaneous -Post Debridement Size (cm) - Length 1.2 -Post Debridement Size (cm) - Width 2.1 -Post Debridement Size (cm) - Depth 0.3 -Total Square Cm 2.52 -Wound/Ulcer Outcome Not Healed -Ulcer Cleansing Rinsed/ Irrigated with Saline -Foul Odor after Cleansing No -Bioengineered Tissue No -Bleeding Controlled with Pressure -Offloading Yes -Type of Offloading Surgical Shoe -Treatment Response Procedure Tolerated Well [See Physician Procedure note for Specifics] Pain Scale: 0-10 Numeric [Pain] -Is Patient Pain Free? Yes Musculoskeletal: No Tenderness to Palpation of Joints or Extremities, Muscle Wasting Neurological: - - Lack of normal epicritic sensation is consistent with neuropathy Psych/Mental Status: Normal Affect, Appropriate Debridement Note Post-Debridement Measurements/Treatment WC - Nurse 2 - General Ulcer CM Notes Start: 02/16/19 11:29 Freq: Status: Active Protocol: Activity Type Activity Date Activity User E-Sign Co-Sign Detail Recorded Client Recorded Date Recorded By Document 02/16/19 12:12 [id number] 02/16/19 12:14 Document 02/23/19 12:02 [id number] 02/23/19 12:16 Document 03/02/19 12:20 [id number] 03/02/19 12:24 02/16/19 02/23/19 03/02/19 12:12 12:02 12:20 Wound Center Nurse 2 29-left anterior bernstein -Time 12:08 12:20 -Correct Patient Yes Yes -Correct Side, Site, Position Yes Yes -Correct Procedure Yes Yes -Procedure Performed Yes Yes -Type of Procedure Debridement Debridement -Clinical Debridement Subcutaneous Subcutaneous -Post Debridement Size (cm) - Length 1.0 1.2 -Post Debridement Size (cm) - Width 0.7 2.1 -Post Debridement Size (cm) - Depth 0.2 0.1 -Total Square Cm 0.70 2.52 -Wound/Ulcer Outcome Not Healed Not Healed -Ulcer Cleansing Rinsed/ Rinsed/ Irrigated with Irrigated with Saline Saline -Foul Odor after Cleansing No No -Bioengineered Tissue No No -Bleeding Controlled with Pressure Pressure -Offloading Yes Yes -Type of Offloading Surgical Shoe Surgical Shoe -Treatment Response Procedure Procedure Tolerated Well Tolerated Well #28- R MEDIAL FOOT -Time 12:05 12:20 -Correct Patient Yes Yes -Correct Side, Site, Position Yes Yes -Correct Procedure Yes Yes -Procedure Performed Yes Yes -Type of Procedure Debridement Debridement -Clinical Debridement Subcutaneous Subcutaneous -Post Debridement Size (cm) - Length 1.5 12 -Post Debridement Size (cm) - Width 1.2 4.7 -Post Debridement Size (cm) - Depth 0.1 0.1 -Total Square Cm 1.80 56.4 -Wound/Ulcer Outcome Not Healed Not Healed -Ulcer Cleansing Rinsed/ Rinsed/ Irrigated with Irrigated with Saline Saline -Foul Odor after Cleansing No No -Bioengineered Tissue No No -Bleeding Controlled with Pressure Pressure -Offloading Yes Yes -Type of Offloading Surgical Shoe Surgical Shoe -Treatment Response Procedure Procedure Tolerated Well Tolerated Well 27-right 2nd toe -Time 12:13 12:05 12:21 -Correct Patient Yes Yes Yes -Correct Side, Site, Position Yes Yes Yes -Correct Procedure Yes Yes Yes -Procedure Performed Yes Yes Yes -Type of Procedure Debridement Debridement Debridement -Clinical Debridement Subcutaneous Subcutaneous Subcutaneous -Post Debridement Size (cm) - Length 2.2 1.3 2.5 -Post Debridement Size (cm) - Width 1 2.1 2.0 -Post Debridement Size (cm) - Depth 0.2 0.1 0.1 -Total Square Cm 2.2 2.73 5.00 -Wound/Ulcer Outcome Not Healed Not Healed Not Healed -Ulcer Cleansing Rinsed/ Rinsed/ Rinsed/ Irrigated with Irrigated with Irrigated with Saline Saline Saline -Foul Odor after Cleansing No No No -Bioengineered Tissue No No No -Bleeding Controlled with Pressure Pressure Pressure -Offloading No Yes Yes -Type of Offloading Surgical Shoe Surgical Shoe -Treatment Response Procedure Procedure Procedure Tolerated Well Tolerated Well Tolerated Well #21 rt plantar -Time 12:13 12:06 12:21 -Correct Patient Yes Yes Yes -Correct Side, Site, Position Yes Yes Yes -Correct Procedure Yes Yes Yes -Procedure Performed Yes Yes Yes -Type of Procedure Debridement Debridement Debridement -Clinical Debridement Subcutaneous Subcutaneous Subcutaneous -Post Debridement Size (cm) - Length 1.5 1.1 0.8 -Post Debridement Size (cm) - Width 0.7 0.9 0.8 -Post Debridement Size (cm) - Depth 0.2 0.2 0.2 -Total Square Cm 1.05 0.99 0.64 -Wound/Ulcer Outcome Not Healed Not Healed Not Healed -Ulcer Cleansing Rinsed/ Rinsed/ Rinsed/ Irrigated with Irrigated with Irrigated with Saline Saline Saline -Foul Odor after Cleansing No No No -Bioengineered Tissue No No No -Bleeding Controlled with Pressure Pressure Pressure -Offloading No Yes Yes -Type of Offloading Surgical Shoe Surgical Shoe -Treatment Response Procedure Procedure Procedure Tolerated Well Tolerated Well Tolerated Well 20-right posterior heel -Time 12:13 12:06 12:22 -Correct Patient Yes Yes Yes -Correct Side, Site, Position Yes Yes Yes -Correct Procedure Yes Yes Yes -Procedure Performed Yes Yes Yes -Type of Procedure Debridement Debridement Debridement -Clinical Debridement Subcutaneous Subcutaneous Subcutaneous -Post Debridement Size (cm) - Length 2.1 2.5 2.5 -Post Debridement Size (cm) - Width 2.8 3 2.4 -Post Debridement Size (cm) - Depth 0.2 0.2 0.3 -Total Square Cm 5.88 7.5 6.00 -Wound/Ulcer Outcome Not Healed Not Healed Not Healed -Ulcer Cleansing Rinsed/ Rinsed/ Rinsed/ Irrigated with Irrigated with Irrigated with Saline Saline Saline -Foul Odor after Cleansing No No No -Bioengineered Tissue No No No -Bleeding Controlled with Pressure Pressure Pressure -Offloading No Yes Yes -Type of Offloading Surgical Shoe Surgical Shoe -Treatment Response Procedure Procedure Procedure Tolerated Well Tolerated Well Tolerated Well #1 right medial heel -Time 12:14 12:06 12:22 -Correct Patient Yes Yes Yes -Correct Side, Site, Position Yes Yes Yes -Correct Procedure Yes Yes Yes -Procedure Performed Yes Yes Yes -Type of Procedure Debridement Debridement Debridement -Clinical Debridement Subcutaneous Subcutaneous Subcutaneous -Post Debridement Size (cm) - Length 1.4 1.3 1.2 -Post Debridement Size (cm) - Width 1.2 2.1 2.1 -Post Debridement Size (cm) - Depth 0.3 0.4 0.3 -Total Square Cm 1.68 2.73 2.52 -Wound/Ulcer Outcome Not Healed Not Healed Not Healed -Ulcer Cleansing Rinsed/ Rinsed/ Rinsed/ Irrigated with Irrigated with Irrigated with Saline Saline Saline -Foul Odor after Cleansing No No No -Bioengineered Tissue No No No -Bleeding Controlled with Pressure Pressure Pressure -Offloading Yes Yes Yes -Type of Offloading Surgical Shoe Surgical Shoe Surgical Shoe -Treatment Response Procedure Procedure Procedure Tolerated Well Tolerated Well Tolerated Well Pain Scale: 0-10 Numeric Is Patient Pain Free? Yes Yes Yes Wound debrided: anterior bernstein Laterality: Left Wound Grade/Stage: grade 1 Type of Debridement: Excisional debridement Anesthesia Used: 5% Lidocaine Gel Depth: in the subcutaneous layer Percentage of wound debrided: 100 Instrument Used: #15 blade Tissue Removed: fibrous, devitalized subcutaneous, biofilm, slough Severity: Fat Layer Exposed Amount of bleeding with debridement: Mild Bleeding Controlled with: Pressure Patient tolerated procedure well - Additional Wound Wound debrided: plantar posterior heel Laterality: Right Wound Grade/Stage: grade 3 Type of Debridement: Excisional debridement Anesthesia Used: 5% Lidocaine Gel Depth: in the subcutaneous layer Percentage of wound debrided: 100 Instrument Used: #15 blade Tissue Removed: fibrous, devitalized subcutaneous, biofilm, slough Severity: Fat Layer Exposed Amount of bleeding with debridement: Mild Bleeding Controlled with: Pressure Patient tolerated procedure: Patient tolerated procedure well - Additional Wound Wound debrided: plantar heel, sub 1st metatarsal head, dorsal 2nd toe Laterality: Right Wound Grade/Stage: grade 1 Type of Debridement: Excisional debridement Anesthesia Used: 5% Lidocaine Gel Depth: in the subcutaneous layer Percentage of wound debrided: 100 Instrument Used: #15 blade Tissue Removed: fibrous, devitalized subcutaneous, biofilm, slough Severity: Fat Layer Exposed Amount of bleeding with debridement: Mild Bleeding Controlled with: Pressure Patient tolerated procedure: Patient tolerated procedure well Assessment/Plan Assessment: Right forefoot medial plantar ulcer. right medial distal forefoot ulcer. dorsal medial right foot ulcer. left leg ulcer. Plantar posterior right heel ulcer stable. Plantar heel ulcer stable. Diabetes with neuropathy. lymphedema and continued leg swelling with recent exacerbation. peripheral vacular disease. venous insufficiency Plan: I discussed his case and treatment plan. Subcutaneous excisional debridement was performed to ulcer sites as noted in the nursing clinical panel to the right foot. To continue daily dressing changes with Aquacel. To maintain improved skin integrity by applying lac hydrin lotion to both legs daily. Continue circaid wraps bilateral legs daily; it is okay to apply tubigrip prior to application of CircAid foot wrap to better keep his wound dressings in place. To continue compression pump device daily; he is doing well with this. To proceed as previously advised with his lymphedema follow-up as advised. He is [facility] from the [facility] at this time. Farrow compression garments to promote improved continued edema management at a more proximal level was approved for right lower extremity use; to use as advised. It is noted he was not approved for the left lower extremity because he did not meet qualifying criteria of open left leg current ulcer site. To continue Lasix use as advised by primary care physician. To follow-up with primary care physician within the next month for progressive deconditioning status, edema management and also for medication refills. To complete the recommended primary care physician and physical therapy follow-up to work on deconditioning prevention and obtaining his hospital bed that was previously ordered. He is reassured that I do not notice any odor today or leticia signs of infection. However given his report of odor coming from the foot in conjunction with increased edema, an x-ray was ordered of the right foot and wound cultures were also obtained. he does have demonstrated pathological bacterial growth. I recommend cleaning the ulcer sites daily with antimicrobial soap which was dispensed today until this bioburden issue is addressed which may be contributing to part of his delayed healing. He will also monitor for signs of worsening or development of local or systemic illness. To continue with portion control for weight loss and proper glycemic control and nutritional supplementation to optimize healing. His hemoglobin A1c went from 9.0 to 7.4. To continue strict offloading to all these ulcer sites. He has a donut offloading pillow and he was advised to use this. To follow-up with Dr. Peng as advised for the recommended bilateral intervention, venous. His recent vascular intervention in the left lower extremity is noted. All of his questions were answered. He understands he is still at risk for limb loss. To follow-up at the wound care center in 2 weeks or call sooner if he has any questions or concerns. He is on a palliative care program.
[2019-03-15 15:33] VITALS: RESP 18; TEMP 36.6; BMI 53.1
--- NOTE | 2019-03-15 16:31 | PCM.WC.PN ---
(1) Osteomyelitis of foot Status: Suspected Qualifiers: Laterality: right Code(s): M86.9 - Osteomyelitis, unspecified (2) Trauma of toe of right foot Status: Acute Code(s): S99.921A - Unspecified injury of right foot, initial encounter (3) Ulcer of right foot with fat layer exposed Status: Chronic Code(s): L97.512 - Non-pressure chronic ulcer of other part of right foot with fat layer exposed (4) Lymphedema Status: Chronic Code(s): I89.0 - Lymphedema, not elsewhere classified (5) Venous insufficiency Status: Chronic Code(s): I87.2 - Venous insufficiency (chronic) (peripheral) (6) Lower extremity edema Status: Chronic Code(s): R60.0 - Localized edema (7) Type 2 diabetes mellitus with diabetic polyneuropathy Status: Chronic Code(s): E11.42 - Type 2 diabetes mellitus with diabetic polyneuropathy (8) Debility Status: Chronic Code(s): R53.81 - Other malaise (9) Ulcer of right lower extremity with fat layer exposed Status: Acute Code(s): L97.912 - Non-pressure chronic ulcer of unspecified part of right lower leg with fat layer exposed (10) Ulcer of left lower extremity with fat layer exposed Status: Chronic Code(s): L97.922 - Non-pressure chronic ulcer of unspecified part of left lower leg with fat layer exposed Type of Wound Date of Service: 03/15/19 Chief Complaint: Injury to right second toe. New right leg ulcer. Recent hospital admission noted at [facility] for yeast infection yeast infection. Multiple ulcers and leg swelling History of Wound: 63 year old male was seen for right heel ulcer with chronic osteomyelitis, right plantar heel ulcer, right forefoot ulcers and left and right leg ulcer. He denies fever, chill, nausea, vomiting, loss of appetite. He will continue dressing as advised with Aquacel. He uses the compression pumps 2-3 times a day with significant edema reduction. He completed his vascular surgery angioplasty with Dr. Peng for the left lower extremity. He has received treatment at the lymphedema clinic as well. He uses CircAid compression wraps. He has followed with Dr. Peng as advised. He wears a right cam walker boot. He was recently hospitalized at an outside facility and was treated with diuretics and antibiotics. Upon returning home, yesterday he dropped a piece of wood on his second toe and relates it was bleeding a lot. He relates he got into the bathtub and there was blood everywhere. He applied hot peppers to his toe and this stopped the bleeding. He denies pain and relates he has significant neuropathy. He has progressive deterioration and is not able to get into the hospital chair or bed today. He remains in his motorized scooter. During his hospital admission there was concern of his the chronicity of his right heel ulcers and an MRI was recommended but not completed. This was not the reason for his hospital admission. Progress of Wound: Stable - Physical Exam Vital Signs Temp Pulse Resp BP 97.8 F 62 18 146/49 H 03/15/19 15:33 03/02/19 12:01 03/15/19 15:33 03/02/19 12:01 General: Alert, Oriented x3, Cooperative, No apparent distress HEENT: Atraumatic Extremities: No cyanosis, Capillary Refill Less than 3 Seconds, No Calf Tenderness - Negative Keara and Simmons sign bilateral. Compartments are soft to palpate bilateral, Diminished Peripheral Pulses, Edema - Bilateral lower extremity increased, - - Left transmetatarsal amputation Skin: Ulcer/ Wound - There is no purulence, erythema, streaking, odor, necrosis. There is increased ulcer size to the right second toe. New skin discontinuity to the right anterior leg with granular base. His skin is atrophic and hairless. He has chronic continuation of right heel ulcers. Wound Measurements and Assessment WC - Nurse 1 - General Ulcer Measurement Start: 02/16/19 11:29 Freq: Status: Active Protocol: Activity Type Activity Date Activity User E-Sign Co-Sign Detail Recorded Client Recorded Date Recorded By Document 03/15/19 15:33 [facility] [id number] 03/15/19 15:54 [facility] 03/15/19 15:33 Wound Center Nurse 1 [Ulcer Assessment] 29-left anterior bernstein -Combined with other wound No -Current Size (cm) - Length 1 -Current Size (cm) - Width 0.5 -Current Size (cm) - Depth 0.2 -Total Square Cm 0.5 -Photo Taken No -Epithelialization None Present -Tunneling No -Undermining/Tunneling No -Circular Undermining No -Exudate Amt Small -Exudate Type Serous -Wound Margin Distinct, Outline Attached -Granulation Amt Large (67-100%) -Granulation Quality [place] -Slough/Fibrin Yes -Necrosis Amt Small (1-33%) -Necrotic Tissue Type Adherent Slough -Texture (Susy-wound Skin Appearance) Assessed, Scarring -Moisture (Susy-wound Skin Appearance Assessed,Dry/ ) Scaly -Color (Susy-wound Skin Appearance) Assessed, Hemosiderin Staining -Temperature (Susy-wound Skin No Abnormality Appearance) (Pt Warm) -Tenderness on Palpation (Susy-wound No Skin Appearance) -Ulcer Cleansing soapy water -Foul Odor after Cleansing No -Anesthetic Used 4% Lidocaine Solution #28- R MEDIAL FOOT -Combined with other wound No -Current Size (cm) - Length 0.1 -Current Size (cm) - Width 0.1 -Current Size (cm) - Depth 0.1 -Total Square Cm 0.01 -Epithelialization Large 67-100% 27-right 2nd toe -Combined with other wound No -Current Size (cm) - Length 3.1 -Current Size (cm) - Width 2 -Current Size (cm) - Depth 0.2 -Total Square Cm 6.2 -Photo Taken No -Epithelialization None Present -Tunneling No -Undermining/Tunneling No -Circular Undermining No -Exudate Amt Small -Exudate Type Serosanguineous -Wound Margin Distinct, Outline Attached -Granulation Amt None Present (0 %) -Slough/Fibrin Yes -Necrosis Amt Large (67-100%) -Necrotic Tissue Type Eschar -Texture (Susy-wound Skin Appearance) Assessed, Scarring -Moisture (Susy-wound Skin Appearance Assessed, ) Maceration -Color (Susy-wound Skin Appearance) Assessed, Erythema,Palor -Temperature (Susy-wound Skin No Abnormality Appearance) (Pt Warm) -Tenderness on Palpation (Susy-wound No Skin Appearance) -Ulcer Cleansing soapy water -Foul Odor after Cleansing No -Anesthetic Used 4% Lidocaine Solution #21 rt plantar -Combined with other wound No -Current Size (cm) - Length 1.9 -Current Size (cm) - Width 1.1 -Current Size (cm) - Depth 0.2 -Total Square Cm 2.09 -Photo Taken No -Epithelialization None Present -Tunneling No -Undermining/Tunneling No -Circular Undermining No -Exudate Amt Small -Exudate Type Serosanguineous -Wound Margin Distinct, Outline Attached -Granulation Amt Large (67-100%) -Granulation Quality [place] -Slough/Fibrin Yes -Necrosis Amt Small (1-33%) -Necrotic Tissue Type Adherent Slough -Texture (Susy-wound Skin Appearance) Assessed,Callus ,Scarring -Moisture (Susy-wound Skin Appearance Assessed,Dry/ ) Scaly -Color (Susy-wound Skin Appearance) Assessed -Temperature (Susy-wound Skin No Abnormality Appearance) (Pt Warm) -Tenderness on Palpation (Susy-wound No Skin Appearance) -Ulcer Cleansing soapy water -Foul Odor after Cleansing No -Anesthetic Used 4% Lidocaine Solution 20-right posterior heel -Combined with other wound No -Current Size (cm) - Length 3.5 -Current Size (cm) - Width 3.3 -Current Size (cm) - Depth 0.2 -Total Square Cm 11.55 -Photo Taken No -Epithelialization None Present -Tunneling No -Undermining/Tunneling No -Circular Undermining No -Exudate Amt Small -Exudate Type Serosanguineous -Wound Margin Distinct, Outline Attached -Granulation Amt Large (67-100%) -Granulation Quality [place] -Slough/Fibrin Yes -Necrosis Amt Small (1-33%) -Necrotic Tissue Type Adherent Slough -Texture (Susy-wound Skin Appearance) Assessed,Callus ,Scarring -Moisture (Susy-wound Skin Appearance Assessed,Dry/ ) Scaly -Color (Susy-wound Skin Appearance) Assessed -Temperature (Susy-wound Skin No Abnormality Appearance) (Pt Warm) -Tenderness on Palpation (Susy-wound No Skin Appearance) -Ulcer Cleansing soapy water -Foul Odor after Cleansing No -Anesthetic Used 4% Lidocaine Solution #1 right medial heel -Combined with other wound No -Current Size (cm) - Length 1.4 -Current Size (cm) - Width 2.2 -Current Size (cm) - Depth 0.3 -Total Square Cm 3.08 -Photo Taken No -Epithelialization None Present -Tunneling No -Undermining/Tunneling No -Circular Undermining No -Exudate Amt Small -Exudate Type Serosanguineous -Wound Margin Distinct, Outline Attached -Granulation Amt Large (67-100%) -Granulation Quality [place] -Slough/Fibrin Yes -Necrosis Amt Small (1-33%) -Necrotic Tissue Type Adherent Slough -Texture (Susy-wound Skin Appearance) Assessed,Callus ,Scarring -Moisture (Susy-wound Skin Appearance Assessed,Dry/ ) Scaly -Color (Susy-wound Skin Appearance) Assessed -Temperature (Susy-wound Skin No Abnormality Appearance) (Pt Warm) -Tenderness on Palpation (Susy-wound No Skin Appearance) -Ulcer Cleansing soapy water -Foul Odor after Cleansing No -Anesthetic Used 4% Lidocaine Solution [Edema Assessment] -Lower Limb Edema Present Yes -Right Calf (cm) 55.9 -Right Ankle (cm) 30 -Left Calf (cm) 53.5 -Left Ankle (cm) 27.8 WC - Nurse 2 - General Ulcer CM Notes Start: 02/16/19 11:29 Freq: Status: Active Protocol: Activity Type Activity Date Activity User E-Sign Co-Sign Detail Recorded Client Recorded Date Recorded By Document 03/15/19 16:12 NORRIS [id number] 03/15/19 16:19 NORRIS 03/15/19 16:12 Wound Center Nurse 2 [Procedure/Treatment] 29-left anterior bernstein -Time 16:13 -Correct Patient Yes -Correct Side, Site, Position Yes -Correct Procedure Yes -Procedure Performed Yes -Type of Procedure Debridement -Clinical Debridement Subcutaneous -Post Debridement Size (cm) - Length 1.1 -Post Debridement Size (cm) - Width 0.5 -Post Debridement Size (cm) - Depth 0.2 -Total Square Cm 0.55 -Wound/Ulcer Outcome Not Healed -Ulcer Cleansing Rinsed/ Irrigated with Saline -Foul Odor after Cleansing No -Bioengineered Tissue No -Bleeding Controlled with Pressure -Offloading No -Treatment Response Procedure Tolerated Well #28- R MEDIAL FOOT -Time 16:13 -Correct Patient Yes -Correct Side, Site, Position Yes -Correct Procedure Yes -Procedure Performed Yes -Type of Procedure Debridement -Clinical Debridement Subcutaneous -Post Debridement Size (cm) - Length 0.2 -Post Debridement Size (cm) - Width 0.2 -Post Debridement Size (cm) - Depth 0.1 -Total Square Cm 0.04 -Wound/Ulcer Outcome Not Healed -Ulcer Cleansing Rinsed/ Irrigated with Saline -Foul Odor after Cleansing No -Bioengineered Tissue No -Bleeding Controlled with Pressure -Offloading No -Treatment Response Procedure Tolerated Well 27-right 2nd toe -Time 16:13 -Correct Patient Yes -Correct Side, Site, Position Yes -Correct Procedure Yes -Procedure Performed Yes -Type of Procedure Debridement -Clinical Debridement Subcutaneous -Post Debridement Size (cm) - Length 3.2 -Post Debridement Size (cm) - Width 2 -Post Debridement Size (cm) - Depth 0.2 -Total Square Cm 6.4 -Wound/Ulcer Outcome Not Healed -Ulcer Cleansing Rinsed/ Irrigated with Saline -Foul Odor after Cleansing No -Bioengineered Tissue No -Bleeding Controlled with Pressure -Offloading Yes -Type of Offloading Surgical Shoe -Treatment Response Procedure Tolerated Well #21 rt plantar -Time 16:14 -Correct Patient Yes -Correct Side, Site, Position Yes -Correct Procedure Yes -Procedure Performed Yes -Type of Procedure Debridement -Clinical Debridement Subcutaneous -Post Debridement Size (cm) - Length 2 -Post Debridement Size (cm) - Width 1.2 -Post Debridement Size (cm) - Depth 0.2 -Total Square Cm 2.4 -Wound/Ulcer Outcome Not Healed -Ulcer Cleansing Rinsed/ Irrigated with Saline -Foul Odor after Cleansing No -Bioengineered Tissue No -Bleeding Controlled with Pressure -Offloading Yes -Type of Offloading Surgical Shoe -Treatment Response Procedure Tolerated Well 20-right posterior heel -Time 16:16 -Correct Patient Yes -Correct Side, Site, Position Yes -Correct Procedure Yes -Procedure Performed Yes -Type of Procedure Debridement -Clinical Debridement Subcutaneous -Post Debridement Size (cm) - Length 36.5 -Post Debridement Size (cm) - Width 3.4 -Post Debridement Size (cm) - Depth 0.2 -Total Square Cm 124.10 -Wound/Ulcer Outcome Not Healed -Ulcer Cleansing Rinsed/ Irrigated with Saline -Foul Odor after Cleansing No -Bioengineered Tissue No -Bleeding Controlled with Pressure -Offloading Yes -Type of Offloading Surgical Shoe -Treatment Response Procedure Tolerated Well #1 right medial heel -Time 16:16 -Correct Patient Yes -Correct Side, Site, Position Yes -Correct Procedure Yes -Procedure Performed Yes -Type of Procedure Debridement -Clinical Debridement Subcutaneous -Post Debridement Size (cm) - Length 1.5 -Post Debridement Size (cm) - Width 2.2 -Post Debridement Size (cm) - Depth 0.3 -Total Square Cm 3.30 -Wound/Ulcer Outcome Not Healed -Ulcer Cleansing Rinsed/ Irrigated with Saline -Foul Odor after Cleansing No -Bioengineered Tissue No -Bleeding Controlled with Pressure -Offloading Yes -Type of Offloading Surgical Shoe -Treatment Response Procedure Tolerated Well [See Physician Procedure note for Specifics] Pain Scale: 0-10 Numeric [Pain] -Is Patient Pain Free? Yes Musculoskeletal: No Tenderness to Palpation of Joints or Extremities, Muscle Wasting Lymphatic: - - Lymphedema bilateral Neurological: - - Lack of epicritic sensation light touch consistent with neuropathy status bilateral Psych/Mental Status: Normal Affect, Appropriate Debridement Note Post-Debridement Measurements/Treatment WC - Nurse 2 - General Ulcer CM Notes Start: 02/16/19 11:29 Freq: Status: Active Protocol: Activity Type Activity Date Activity User E-Sign Co-Sign Detail Recorded Client Recorded Date Recorded By Document 02/16/19 12:12 [id number] 02/16/19 12:14 Document 02/23/19 12:02 [id number] 02/23/19 12:16 Document 03/02/19 12:20 [id number] 03/02/19 12:24 Document 03/15/19 16:12 [id number] 03/15/19 16:19 02/16/19 02/23/19 03/02/19 12:12 12:02 12:20 Wound Center Nurse 2 29-left anterior bernstein -Time 12:08 12:20 -Correct Patient Yes Yes -Correct Side, Site, Position Yes Yes -Correct Procedure Yes Yes -Procedure Performed Yes Yes -Type of Procedure Debridement Debridement -Clinical Debridement Subcutaneous Subcutaneous -Post Debridement Size (cm) - Length 1.0 1.2 -Post Debridement Size (cm) - Width 0.7 2.1 -Post Debridement Size (cm) - Depth 0.2 0.1 -Total Square Cm 0.70 2.52 -Wound/Ulcer Outcome Not Healed Not Healed -Ulcer Cleansing Rinsed/ Rinsed/ Irrigated with Irrigated with Saline Saline -Foul Odor after Cleansing No No -Bioengineered Tissue No No -Bleeding Controlled with Pressure Pressure -Offloading Yes Yes -Type of Offloading Surgical Shoe Surgical Shoe -Treatment Response Procedure Procedure Tolerated Well Tolerated Well #28- R MEDIAL FOOT -Time 12:05 12:20 -Correct Patient Yes Yes -Correct Side, Site, Position Yes Yes -Correct Procedure Yes Yes -Procedure Performed Yes Yes -Type of Procedure Debridement Debridement -Clinical Debridement Subcutaneous Subcutaneous -Post Debridement Size (cm) - Length 1.5 12 -Post Debridement Size (cm) - Width 1.2 4.7 -Post Debridement Size (cm) - Depth 0.1 0.1 -Total Square Cm 1.80 56.4 -Wound/Ulcer Outcome Not Healed Not Healed -Ulcer Cleansing Rinsed/ Rinsed/ Irrigated with Irrigated with Saline Saline -Foul Odor after Cleansing No No -Bioengineered Tissue No No -Bleeding Controlled with Pressure Pressure -Offloading Yes Yes -Type of Offloading Surgical Shoe Surgical Shoe -Treatment Response Procedure Procedure Tolerated Well Tolerated Well 27-right 2nd toe -Time 12:13 12:05 12:21 -Correct Patient Yes Yes Yes -Correct Side, Site, Position Yes Yes Yes -Correct Procedure Yes Yes Yes -Procedure Performed Yes Yes Yes -Type of Procedure Debridement Debridement Debridement -Clinical Debridement Subcutaneous Subcutaneous Subcutaneous -Post Debridement Size (cm) - Length 2.2 1.3 2.5 -Post Debridement Size (cm) - Width 1 2.1 2.0 -Post Debridement Size (cm) - Depth 0.2 0.1 0.1 -Total Square Cm 2.2 2.73 5.00 -Wound/Ulcer Outcome Not Healed Not Healed Not Healed -Ulcer Cleansing Rinsed/ Rinsed/ Rinsed/ Irrigated with Irrigated with Irrigated with Saline Saline Saline -Foul Odor after Cleansing No No No -Bioengineered Tissue No No No -Bleeding Controlled with Pressure Pressure Pressure -Offloading No Yes Yes -Type of Offloading Surgical Shoe Surgical Shoe -Treatment Response Procedure Procedure Procedure Tolerated Well Tolerated Well Tolerated Well #21 rt plantar -Time 12:13 12:06 12:21 -Correct Patient Yes Yes Yes -Correct Side, Site, Position Yes Yes Yes -Correct Procedure Yes Yes Yes -Procedure Performed Yes Yes Yes -Type of Procedure Debridement Debridement Debridement -Clinical Debridement Subcutaneous Subcutaneous Subcutaneous -Post Debridement Size (cm) - Length 1.5 1.1 0.8 -Post Debridement Size (cm) - Width 0.7 0.9 0.8 -Post Debridement Size (cm) - Depth 0.2 0.2 0.2 -Total Square Cm 1.05 0.99 0.64 -Wound/Ulcer Outcome Not Healed Not Healed Not Healed -Ulcer Cleansing Rinsed/ Rinsed/ Rinsed/ Irrigated with Irrigated with Irrigated with Saline Saline Saline -Foul Odor after Cleansing No No No -Bioengineered Tissue No No No -Bleeding Controlled with Pressure Pressure Pressure -Offloading No Yes Yes -Type of Offloading Surgical Shoe Surgical Shoe -Treatment Response Procedure Procedure Procedure Tolerated Well Tolerated Well Tolerated Well 20-right posterior heel -Time 12:13 12:06 12:22 -Correct Patient Yes Yes Yes -Correct Side, Site, Position Yes Yes Yes -Correct Procedure Yes Yes Yes -Procedure Performed Yes Yes Yes -Type of Procedure Debridement Debridement Debridement -Clinical Debridement Subcutaneous Subcutaneous Subcutaneous -Post Debridement Size (cm) - Length 2.1 2.5 2.5 -Post Debridement Size (cm) - Width 2.8 3 2.4 -Post Debridement Size (cm) - Depth 0.2 0.2 0.3 -Total Square Cm 5.88 7.5 6.00 -Wound/Ulcer Outcome Not Healed Not Healed Not Healed -Ulcer Cleansing Rinsed/ Rinsed/ Rinsed/ Irrigated with Irrigated with Irrigated with Saline Saline Saline -Foul Odor after Cleansing No No No -Bioengineered Tissue No No No -Bleeding Controlled with Pressure Pressure Pressure -Offloading No Yes Yes -Type of Offloading Surgical Shoe Surgical Shoe -Treatment Response Procedure Procedure Procedure Tolerated Well Tolerated Well Tolerated Well #1 right medial heel -Time 12:14 12:06 12:22 -Correct Patient Yes Yes Yes -Correct Side, Site, Position Yes Yes Yes -Correct Procedure Yes Yes Yes -Procedure Performed Yes Yes Yes -Type of Procedure Debridement Debridement Debridement -Clinical Debridement Subcutaneous Subcutaneous Subcutaneous -Post Debridement Size (cm) - Length 1.4 1.3 1.2 -Post Debridement Size (cm) - Width 1.2 2.1 2.1 -Post Debridement Size (cm) - Depth 0.3 0.4 0.3 -Total Square Cm 1.68 2.73 2.52 -Wound/Ulcer Outcome Not Healed Not Healed Not Healed -Ulcer Cleansing Rinsed/ Rinsed/ Rinsed/ Irrigated with Irrigated with Irrigated with Saline Saline Saline -Foul Odor after Cleansing No No No -Bioengineered Tissue No No No -Bleeding Controlled with Pressure Pressure Pressure -Offloading Yes Yes Yes -Type of Offloading Surgical Shoe Surgical Shoe Surgical Shoe -Treatment Response Procedure Procedure Procedure Tolerated Well Tolerated Well Tolerated Well Pain Scale: 0-10 Numeric Is Patient Pain Free? Yes Yes Yes 03/15/19 16:12 Wound Center Nurse 2 29-left anterior bernstein -Time 16:13 -Correct Patient Yes -Correct Side, Site, Position Yes -Correct Procedure Yes -Procedure Performed Yes -Type of Procedure Debridement -Clinical Debridement Subcutaneous -Post Debridement Size (cm) - Length 1.1 -Post Debridement Size (cm) - Width 0.5 -Post Debridement Size (cm) - Depth 0.2 -Total Square Cm 0.55 -Wound/Ulcer Outcome Not Healed -Ulcer Cleansing Rinsed/ Irrigated with Saline -Foul Odor after Cleansing No -Bioengineered Tissue No -Bleeding Controlled with Pressure -Offloading No -Type of Offloading -Treatment Response Procedure Tolerated Well #28- R MEDIAL FOOT -Time 16:13 -Correct Patient Yes -Correct Side, Site, Position Yes -Correct Procedure Yes -Procedure Performed Yes -Type of Procedure Debridement -Clinical Debridement Subcutaneous -Post Debridement Size (cm) - Length 0.2 -Post Debridement Size (cm) - Width 0.2 -Post Debridement Size (cm) - Depth 0.1 -Total Square Cm 0.04 -Wound/Ulcer Outcome Not Healed -Ulcer Cleansing Rinsed/ Irrigated with Saline -Foul Odor after Cleansing No -Bioengineered Tissue No -Bleeding Controlled with Pressure -Offloading No -Type of Offloading -Treatment Response Procedure Tolerated Well 27-right 2nd toe -Time 16:13 -Correct Patient Yes -Correct Side, Site, Position Yes -Correct Procedure Yes -Procedure Performed Yes -Type of Procedure Debridement -Clinical Debridement Subcutaneous -Post Debridement Size (cm) - Length 3.2 -Post Debridement Size (cm) - Width 2 -Post Debridement Size (cm) - Depth 0.2 -Total Square Cm 6.4 -Wound/Ulcer Outcome Not Healed -Ulcer Cleansing Rinsed/ Irrigated with Saline -Foul Odor after Cleansing No -Bioengineered Tissue No -Bleeding Controlled with Pressure -Offloading Yes -Type of Offloading Surgical Shoe -Treatment Response Procedure Tolerated Well #21 rt plantar -Time 16:14 -Correct Patient Yes -Correct Side, Site, Position Yes -Correct Procedure Yes -Procedure Performed Yes -Type of Procedure Debridement -Clinical Debridement Subcutaneous -Post Debridement Size (cm) - Length 2 -Post Debridement Size (cm) - Width 1.2 -Post Debridement Size (cm) - Depth 0.2 -Total Square Cm 2.4 -Wound/Ulcer Outcome Not Healed -Ulcer Cleansing Rinsed/ Irrigated with Saline -Foul Odor after Cleansing No -Bioengineered Tissue No -Bleeding Controlled with Pressure -Offloading Yes -Type of Offloading Surgical Shoe -Treatment Response Procedure Tolerated Well 20-right posterior heel -Time 16:16 -Correct Patient Yes -Correct Side, Site, Position Yes -Correct Procedure Yes -Procedure Performed Yes -Type of Procedure Debridement -Clinical Debridement Subcutaneous -Post Debridement Size (cm) - Length 36.5 -Post Debridement Size (cm) - Width 3.4 -Post Debridement Size (cm) - Depth 0.2 -Total Square Cm 124.10 -Wound/Ulcer Outcome Not Healed -Ulcer Cleansing Rinsed/ Irrigated with Saline -Foul Odor after Cleansing No -Bioengineered Tissue No -Bleeding Controlled with Pressure -Offloading Yes -Type of Offloading Surgical Shoe -Treatment Response Procedure Tolerated Well #1 right medial heel -Time 16:16 -Correct Patient Yes -Correct Side, Site, Position Yes -Correct Procedure Yes -Procedure Performed Yes -Type of Procedure Debridement -Clinical Debridement Subcutaneous -Post Debridement Size (cm) - Length 1.5 -Post Debridement Size (cm) - Width 2.2 -Post Debridement Size (cm) - Depth 0.3 -Total Square Cm 3.30 -Wound/Ulcer Outcome Not Healed -Ulcer Cleansing Rinsed/ Irrigated with Saline -Foul Odor after Cleansing No -Bioengineered Tissue No -Bleeding Controlled with Pressure -Offloading Yes -Type of Offloading Surgical Shoe -Treatment Response Procedure Tolerated Well Pain Scale: 0-10 Numeric Is Patient Pain Free? Yes Wound debrided: posterior heel Laterality: Right Wound Grade/Stage: grade 3 Type of Debridement: Excisional debridement Anesthesia Used: 5% Lidocaine Gel Depth: in the subcutaneous layer Percentage of wound debrided: 100 Instrument Used: #15 blade Tissue Removed: fibrous, devitalized subcutaneous, biofilm, slough Severity: Fat Layer Exposed Amount of bleeding with debridement: Mild Bleeding Controlled with: Pressure Patient tolerated procedure well - Additional Wound Wound debrided: heel distal/lateral, anterior leg(new), dorsal foot (new), 2nd toe Laterality: Right Wound Grade/Stage: grade 1 Type of Debridement: Excisional debridement Anesthesia Used: 5% Lidocaine Gel Depth: in the subcutaneous layer Percentage of wound debrided: 100 Instrument Used: #15 blade Tissue Removed: fibrous, devitalized subcutaneous, biofilm, slough Severity: Fat Layer Exposed Amount of bleeding with debridement: Mild Bleeding Controlled with: Pressure Patient tolerated procedure: Patient tolerated procedure well - Additional Wound Wound debrided: anterior leg Laterality: Left Wound Grade/Stage: grade 1 Type of Debridement: Excisional debridement Anesthesia Used: 5% Lidocaine Gel Depth: in the subcutaneous layer Percentage of wound debrided: 100 Instrument Used: #15 blade Tissue Removed: fibrous, devitalized subcutaneous, biofilm, slough Severity: Fat Layer Exposed Amount of bleeding with debridement: Mild Bleeding Controlled with: Pressure Patient tolerated procedure: Patient tolerated procedure well Assessment/Plan Assessment: Right forefoot medial plantar ulcer. right medial distal forefoot ulcer. dorsal medial right foot ulcer. left leg ulcer. New right leg ulcer. Plantar posterior right heel ulcer stable. Plantar heel ulcer stable. Right second toe ulcer and new trauma. Diabetes with neuropathy. lymphedema and continued leg swelling with recent exacerbation. peripheral vacular disease. venous insufficiency. Subacute osteomyelitis right calcaneus work-up in process Plan: I discussed his case and treatment plan. Subcutaneous excisional debridement was performed to ulcer sites as noted in the nursing clinical panel to the right foot. To continue daily dressing changes with Aquacel. I recommend revisiting the work-up for osteomyelitis of the right calcaneus and sub acute manner at this time. Updated right foot x-rays were obtained to further evaluate the calcaneus and also his new injury site of the second toe. An MRI was also formally order for evaluation of the right calcaneus and prior authorization will be initiated. To maintain improved skin integrity by applying lac hydrin lotion to both legs daily. Continue circaid wraps bilateral legs daily; it is okay to apply tubigrip prior to application of CircAid foot wrap to better keep his wound dressings in place. To continue compression pump device daily; he is doing well with this. To proceed as previously advised with his lymphedema follow-up as advised. He is [facility] from the [facility] at this time. Farrow compression garments to promote improved continued edema management at a more proximal level was approved for right lower extremity use; to use as advised. It is noted he was not approved for the left lower extremity because he did not meet qualifying criteria of open left leg current ulcer site. To continue Lasix use as advised by primary care physician. To follow-up with primary care physician within the next month for progressive deconditioning status, edema management and also for medication refills. To complete the recommended primary care physician and physical therapy follow-up to work on deconditioning prevention and obtaining his hospital bed that was previously ordered. He is reassured that I do not notice any odor today or leticia signs of infection. However given his report of odor coming from the foot in conjunction with increased edema, an x-ray was ordered of the right foot and wound cultures were also obtained. he does have demonstrated pathological bacterial growth. I recommend cleaning the ulcer sites daily with antimicrobial soap which was dispensed previously (hibiclens) until this bioburden issue is addressed which may be contributing to part of his delayed healing. He will also monitor for signs of worsening or development of local or systemic illness. To continue with portion control for weight loss and proper glycemic control and nutritional supplementation to optimize healing. His hemoglobin A1c went from 9.0 to 7.4. To continue strict offloading to all these ulcer sites. He has a donut offloading pillow and he was advised to use this. To follow-up with Dr. Peng as advised for the recommended bilateral intervention, venous. His recent vascular intervention in the left lower extremity is noted. All of his questions were answered. He understands he is still at risk for limb loss. To follow-up at the wound care center in 1-2 weeks or call sooner if he has any questions or concerns. He is on a palliative care program.
== END 2019-03-15 23:59 ==
LOC: WC 15:45
PROVIDERS: Family Provider Family Medicine; PCP Family Medicine; Referring Provider Podiatrist; Visit Provider Podiatrist
DX: E11.621 Type 2 diabetes mellitus with foot ulcer (principal); E11.51 Type 2 diabetes mellitus with diabetic peripheral angiopathy without gangrene; E11.42 Type 2 diabetes mellitus with diabetic polyneuropathy; I87.2 Venous insufficiency (chronic) (peripheral); R60.0 Localized edema; I89.0 Lymphedema, not elsewhere classified; L97.512 Non-pressure chronic ulcer of other part of right foot with fat layer exposed; L97.412 Non-pressure chronic ulcer of right heel and midfoot with fat layer exposed
CPT/HCPCS: 11042; 11045; 87070; 87075; 87077; 87186; 87205; 87640

== ENCOUNTER 2019-04-06 10:45 | Outpatient (RCR) | payer MEDICARE, MEDICAID, SELFPAY ==
[2019-03-16 00:23] VITALS: BP 146/49; PULSE 62; RESP 18; TEMP 36.6
[2019-03-30 10:59] VITALS: BP 181/56; PULSE 49; RESP 18; TEMP 36.9; BMI 53.1
--- NOTE | 2019-03-30 12:05 | PN.PCM_ITS ---
(1) Debility Status: Chronic Code(s): R53.81 - Other malaise (2) Lymphedema Status: Chronic Code(s): I89.0 - Lymphedema, not elsewhere classified (3) Venous insufficiency Status: Chronic Code(s): I87.2 - Venous insufficiency (chronic) (peripheral) (4) Peripheral vascular disease Status: Chronic Code(s): I73.9 - Peripheral vascular disease, unspecified (5) Ulcer of right foot with fat layer exposed Status: Chronic Code(s): L97.512 - Non-pressure chronic ulcer of other part of right foot with fat layer exposed (6) Ulcer of right lower extremity with fat layer exposed Status: Chronic Code(s): L97.912 - Non-pressure chronic ulcer of unspecified part of right lower leg with fat layer exposed (7) Ulcer of left lower extremity with fat layer exposed Status: Chronic Code(s): L97.922 - Non-pressure chronic ulcer of unspecified part of left lower leg with fat layer exposed (8) Walking difficulty due to ankle and foot Status: Chronic Code(s): R26.2 - Difficulty in walking, not elsewhere classified (9) Obesity Status: Chronic Code(s): E66.9 - Obesity, unspecified (10) Lower extremity edema Status: Chronic Code(s): R60.0 - Localized edema (11) Type 2 diabetes mellitus with diabetic polyneuropathy Status: Chronic Code(s): E11.42 - Type 2 diabetes mellitus with diabetic polyneuropathy (12) Malnutrition Status: Chronic Code(s): E46 - Unspecified protein-calorie malnutrition (13) Osteomyelitis of right foot Status: Suspected Code(s): M86.9 - Osteomyelitis, unspecified Type of Wound Date of Service: 03/30/19 Chief Complaint: Ulcer right second toe. right leg ulcer. Multiple ulcers and leg swelling History of Wound: 63 year old male was seen for right heel ulcer with chronic osteomyelitis, right plantar heel ulcer, right forefoot ulcers and left and right leg ulcer. He denies fever, chill, nausea, vomiting, loss of appetite. He will continue dressing as advised with Aquacel. He uses the compression pumps 2-3 times a day with significant edema reduction. He completed his vascular surgery angioplasty with Dr. Peng for the left lower extremity. He has received treatment at the lymphedema clinic as well. He uses CircAid compression wraps. He has followed with Dr. Peng as advised. He wears a right cam walker boot. He did not get his completed MRI performed yet for the right foot. Progress of Wound: Stable - Physical Exam Vital Signs Temp Pulse Resp BP 98.4 F 49 L 18 181/56 H 03/30/19 10:59 03/30/19 10:59 03/30/19 10:59 03/30/19 10:59 General: Alert, Oriented x3, Cooperative, No apparent distress Extremities: No cyanosis, Capillary Refill Less than 3 Seconds, No Calf Tenderness, Diminished Peripheral Pulses, Edema Skin: Ulcer/ Wound - No purulence expression necrosis deep tissue exposure streaking noted. There is inflammation around the heel ulcer and the plantar heel ulcer is notably larger in size with a granular base. The other ulcers are granular and stable. His skin is atrophic and hairless Wound Measurements and Assessment WC - Nurse 1 - General Ulcer Measurement Start: 03/30/19 10:58 Freq: Status: Active Protocol: Activity Type Activity Date Activity User E-Sign Co-Sign Detail Recorded Client Recorded Date Recorded By Document 03/30/19 10:59 RB [id number] 03/30/19 11:22 RB 03/30/19 10:59 Wound Center Nurse 1 [Ulcer Assessment] 29-left anterior bernstein -Combined with other wound No -Current Size (cm) - Length 3.4 -Current Size (cm) - Width 3.5 -Current Size (cm) - Depth 0.1 -Total Square Cm 11.90 -Tunneling No -Undermining/Tunneling No -Circular Undermining No -Exudate Amt Small -Exudate Type Serosanguineous -Wound Margin Flat & Intact -Granulation Amt Medium (34-66%) -Granulation Quality [place] -Slough/Fibrin Yes -Necrosis Amt Small (1-33%) -Necrotic Tissue Type Adherent Slough -Structure Exposed N/A -Texture (Susy-wound Skin Appearance) Assessed -Moisture (Susy-wound Skin Appearance Assessed, ) Maceration -Color (Susy-wound Skin Appearance) Assessed -Temperature (Susy-wound Skin No Abnormality Appearance) (Pt Warm) -Tenderness on Palpation (Susy-wound No Skin Appearance) -Ulcer Cleansing Wound Cleanser -Foul Odor after Cleansing No -Anesthetic Used 4% Lidocaine Solution #28- R MEDIAL FOOT -Combined with other wound No -Current Size (cm) - Length 5 -Current Size (cm) - Width 10.5 -Current Size (cm) - Depth 0.1 -Total Square Cm 52.5 -Tunneling No -Undermining/Tunneling No -Circular Undermining No -Exudate Amt Small -Exudate Type Serosanguineous -Wound Margin Flat & Intact -Granulation Amt Medium (34-66%) -Granulation Quality [place] -Slough/Fibrin Yes -Necrosis Amt Medium (34-66%) -Necrotic Tissue Type Adherent Slough -Structure Exposed N/A -Texture (Susy-wound Skin Appearance) Assessed -Moisture (Susy-wound Skin Appearance Maceration ) -Color (Susy-wound Skin Appearance) Assessed -Temperature ([place]y-wound Skin No Abnormality Appearance) (Pt Warm) -Tenderness on Palpation (Susy-wound No Skin Appearance) -Ulcer Cleansing Wound Cleanser -Foul Odor after Cleansing No -Anesthetic Used 4% Lidocaine Solution 27-right 2nd toe -Combined with other wound No -Current Size (cm) - Length 2.5 -Current Size (cm) - Width 2 -Current Size (cm) - Depth 0.1 -Total Square Cm 5.0 -Tunneling No -Undermining/Tunneling No -Circular Undermining No -Exudate Amt Small -Exudate Type Serosanguineous -Wound Margin Flat & Intact -Granulation Amt Medium (34-66%) -Granulation Quality [place] -Slough/Fibrin Yes -Necrosis Amt Medium (34-66%) -Necrotic Tissue Type Adherent Slough -Structure Exposed N/A -Texture (Susy-wound Skin Appearance) Assessed -Moisture (Susy-wound Skin Appearance Maceration ) -Color (Susy-wound Skin Appearance) Assessed -Temperature ([place]y-wound Skin No Abnormality Appearance) (Pt Warm) -Tenderness on Palpation (Susy-wound No Skin Appearance) -Ulcer Cleansing Wound Cleanser -Foul Odor after Cleansing No -Anesthetic Used 4% Lidocaine Solution #21 rt plantar -Combined with other wound No -Current Size (cm) - Length 1.1 -Current Size (cm) - Width 0.7 -Current Size (cm) - Depth 0.1 -Total Square Cm 0.77 -Tunneling No -Undermining/Tunneling No -Circular Undermining No -Exudate Amt Small -Exudate Type Serosanguineous -Wound Margin Flat & Intact -Granulation Amt Medium (34-66%) -Granulation Quality [place] -Slough/Fibrin Yes -Necrosis Amt Medium (34-66%) -Necrotic Tissue Type Adherent Slough -Structure Exposed N/A -Texture (Susy-wound Skin Appearance) Assessed -Moisture (Susy-wound Skin Appearance Assessed ) -Color (Susy-wound Skin Appearance) Assessed -Temperature ([place]y-wound Skin No Abnormality Appearance) (Pt Warm) -Tenderness on Palpation (Susy-wound No Skin Appearance) -Ulcer Cleansing Wound Cleanser -Foul Odor after Cleansing No -Anesthetic Used 4% Lidocaine Solution 20-right posterior heel -Combined with other wound No -Current Size (cm) - Length 4 -Current Size (cm) - Width 4 -Current Size (cm) - Depth 0.1 -Total Square Cm 16 -Tunneling No -Undermining/Tunneling No -Circular Undermining No -Exudate Amt Small -Exudate Type Serosanguineous -Wound Margin Flat & Intact -Granulation Amt Medium (34-66%) -Granulation Quality [place] -Slough/Fibrin Yes -Necrosis Amt Medium (34-66%) -Necrotic Tissue Type Adherent Slough -Structure Exposed N/A -Texture (Susy-wound Skin Appearance) Assessed -Moisture (Susy-wound Skin Appearance Maceration ) -Color (Susy-wound Skin Appearance) Assessed -Temperature (Susy-wound Skin No Abnormality Appearance) (Pt Warm) -Tenderness on Palpation (Susy-wound No Skin Appearance) -Ulcer Cleansing Wound Cleanser -Foul Odor after Cleansing No -Anesthetic Used 4% Lidocaine Solution #1 right medial heel -Combined with other wound No -Current Size (cm) - Length 1 -Current Size (cm) - Width 1.8 -Current Size (cm) - Depth 0.2 -Total Square Cm 1.8 -Tunneling No -Undermining/Tunneling No -Circular Undermining No -Exudate Amt Small -Exudate Type Serosanguineous -Wound Margin Flat & Intact -Granulation Amt Medium (34-66%) -Granulation Quality [place] -Slough/Fibrin Yes -Necrosis Amt Medium (34-66%) -Necrotic Tissue Type Adherent Slough -Structure Exposed N/A -Texture (Susy-wound Skin Appearance) Assessed -Moisture (Susy-wound Skin Appearance Maceration ) -Color (Susy-wound Skin Appearance) Assessed -Temperature ([place]y-wound Skin No Abnormality Appearance) (Pt Warm) -Tenderness on Palpation (Susy-wound No Skin Appearance) -Ulcer Cleansing Wound Cleanser -Foul Odor after Cleansing No -Anesthetic Used 4% Lidocaine Solution [Edema Assessment] -Lower Limb Edema Present Yes -Right Calf (cm) 59 -Right Ankle (cm) 31 -Left Calf (cm) 56.5 -Left Ankle (cm) 30.5 WC - Nurse 2 - General Ulcer CM Notes Start: 03/30/19 10:58 Freq: Status: Active Protocol: Activity Type Activity Date Activity User E-Sign Co-Sign Detail Recorded Client Recorded Date Recorded By Document 03/30/19 11:29 NORRIS [id number] 03/30/19 11:33 NORRIS 03/30/19 11:29 Wound Center Nurse 2 [Procedure/Treatment] 29-left anterior bernstein -Time 11:29 -Correct Patient Yes -Correct Side, Site, Position Yes -Correct Procedure Yes -Procedure Performed Yes -Type of Procedure Debridement -Clinical Debridement Subcutaneous -Post Debridement Size (cm) - Length 3.5 -Post Debridement Size (cm) - Width 3.5 -Post Debridement Size (cm) - Depth 0.1 -Total Square Cm 12.25 -Wound/Ulcer Outcome Not Healed -Ulcer Cleansing Rinsed/ Irrigated with Saline -Foul Odor after Cleansing No -Bioengineered Tissue No -Bleeding Controlled with Pressure -Offloading Yes -Type of Offloading Surgical Shoe -Treatment Response Procedure Tolerated Well #28- R MEDIAL FOOT -Time 11:30 -Correct Patient Yes -Correct Side, Site, Position Yes -Correct Procedure Yes -Procedure Performed Yes -Type of Procedure Debridement -Clinical Debridement Subcutaneous -Post Debridement Size (cm) - Length 5.1 -Post Debridement Size (cm) - Width 10.5 -Post Debridement Size (cm) - Depth 0.2 -Total Square Cm 53.55 -Wound/Ulcer Outcome Not Healed -Ulcer Cleansing Rinsed/ Irrigated with Saline -Foul Odor after Cleansing No -Bioengineered Tissue No -Bleeding Controlled with Pressure -Offloading Yes -Type of Offloading Surgical Shoe -Treatment Response Procedure Tolerated Well 27-right 2nd toe -Time 11:30 -Correct Patient Yes -Correct Side, Site, Position Yes -Correct Procedure Yes -Procedure Performed Yes -Type of Procedure Debridement -Clinical Debridement Subcutaneous -Post Debridement Size (cm) - Length 2.5 -Post Debridement Size (cm) - Width 2.1 -Post Debridement Size (cm) - Depth 0.1 -Total Square Cm 5.25 -Wound/Ulcer Outcome Not Healed -Ulcer Cleansing Rinsed/ Irrigated with Saline -Foul Odor after Cleansing No -Bioengineered Tissue No -Bleeding Controlled with Pressure -Offloading Yes -Type of Offloading Surgical Shoe -Treatment Response Procedure Tolerated Well #21 rt plantar -Time 11:31 -Correct Patient Yes -Correct Side, Site, Position Yes -Correct Procedure Yes -Procedure Performed Yes -Type of Procedure Debridement -Clinical Debridement Subcutaneous -Post Debridement Size (cm) - Length 1.2 -Post Debridement Size (cm) - Width 0.8 -Post Debridement Size (cm) - Depth 0.1 -Total Square Cm 0.96 -Wound/Ulcer Outcome Not Healed -Ulcer Cleansing Rinsed/ Irrigated with Saline -Foul Odor after Cleansing No -Bioengineered Tissue No -Bleeding Controlled with Pressure -Offloading Yes -Type of Offloading Surgical Shoe -Treatment Response Procedure Tolerated Well 20-right posterior heel -Time 11:31 -Correct Patient Yes -Correct Side, Site, Position Yes -Correct Procedure Yes -Procedure Performed Yes -Type of Procedure Debridement -Clinical Debridement Subcutaneous -Post Debridement Size (cm) - Length 4.1 -Post Debridement Size (cm) - Width 4.1 -Post Debridement Size (cm) - Depth 0.1 -Total Square Cm 16.81 -Wound/Ulcer Outcome Not Healed -Ulcer Cleansing Rinsed/ Irrigated with Saline -Foul Odor after Cleansing No -Bioengineered Tissue No -Bleeding Controlled with Pressure -Offloading Yes -Type of Offloading Surgical Shoe -Treatment Response Procedure Tolerated Well #1 right medial heel -Time 11:31 -Correct Patient Yes -Correct Side, Site, Position Yes -Correct Procedure Yes -Procedure Performed Yes -Type of Procedure Debridement -Clinical Debridement Subcutaneous -Post Debridement Size (cm) - Length 1.1 -Post Debridement Size (cm) - Width 2 -Post Debridement Size (cm) - Depth 0.2 -Total Square Cm 2.2 -Wound/Ulcer Outcome Not Healed -Ulcer Cleansing Rinsed/ Irrigated with Saline -Foul Odor after Cleansing No -Bioengineered Tissue No -Bleeding Controlled with Pressure -Offloading Yes -Type of Offloading Surgical Shoe -Treatment Response Procedure Tolerated Well [See Physician Procedure note for Specifics] Pain Scale: 0-10 Numeric [Pain] -Is Patient Pain Free? Yes Musculoskeletal: No Tenderness to Palpation of Joints or Extremities, Muscle Wasting Neurological: - - Lack of normal sensation light touch consistent with neuropathy status Psych/Mental Status: Normal Affect, Appropriate Debridement Note Post-Debridement Measurements/Treatment WC - Nurse 2 - General Ulcer CM Notes Start: 03/30/19 10:58 Freq: Status: Active Protocol: Activity Type Activity Date Activity User E-Sign Co-Sign Detail Recorded Client Recorded Date Recorded By Document 03/30/19 11:29 NORRIS [id number] 03/30/19 11:33 NORRIS 03/30/19 11:29 Wound Center Nurse 2 29-left anterior bernstein -Time 11:29 -Correct Patient Yes -Correct Side, Site, Position Yes -Correct Procedure Yes -Procedure Performed Yes -Type of Procedure Debridement -Clinical Debridement Subcutaneous -Post Debridement Size (cm) - Length 3.5 -Post Debridement Size (cm) - Width 3.5 -Post Debridement Size (cm) - Depth 0.1 -Total Square Cm 12.25 -Wound/Ulcer Outcome Not Healed -Ulcer Cleansing Rinsed/ Irrigated with Saline -Foul Odor after Cleansing No -Bioengineered Tissue No -Bleeding Controlled with Pressure -Offloading Yes -Type of Offloading Surgical Shoe -Treatment Response Procedure Tolerated Well #28- R MEDIAL FOOT -Time 11:30 -Correct Patient Yes -Correct Side, Site, Position Yes -Correct Procedure Yes -Procedure Performed Yes -Type of Procedure Debridement -Clinical Debridement Subcutaneous -Post Debridement Size (cm) - Length 5.1 -Post Debridement Size (cm) - Width 10.5 -Post Debridement Size (cm) - Depth 0.2 -Total Square Cm 53.55 -Wound/Ulcer Outcome Not Healed -Ulcer Cleansing Rinsed/ Irrigated with Saline -Foul Odor after Cleansing No -Bioengineered Tissue No -Bleeding Controlled with Pressure -Offloading Yes -Type of Offloading Surgical Shoe -Treatment Response Procedure Tolerated Well 27-right 2nd toe -Time 11:30 -Correct Patient Yes -Correct Side, Site, Position Yes -Correct Procedure Yes -Procedure Performed Yes -Type of Procedure Debridement -Clinical Debridement Subcutaneous -Post Debridement Size (cm) - Length 2.5 -Post Debridement Size (cm) - Width 2.1 -Post Debridement Size (cm) - Depth 0.1 -Total Square Cm 5.25 -Wound/Ulcer Outcome Not Healed -Ulcer Cleansing Rinsed/ Irrigated with Saline -Foul Odor after Cleansing No -Bioengineered Tissue No -Bleeding Controlled with Pressure -Offloading Yes -Type of Offloading Surgical Shoe -Treatment Response Procedure Tolerated Well #21 rt plantar -Time 11:31 -Correct Patient Yes -Correct Side, Site, Position Yes -Correct Procedure Yes -Procedure Performed Yes -Type of Procedure Debridement -Clinical Debridement Subcutaneous -Post Debridement Size (cm) - Length 1.2 -Post Debridement Size (cm) - Width 0.8 -Post Debridement Size (cm) - Depth 0.1 -Total Square Cm 0.96 -Wound/Ulcer Outcome Not Healed -Ulcer Cleansing Rinsed/ Irrigated with Saline -Foul Odor after Cleansing No -Bioengineered Tissue No -Bleeding Controlled with Pressure -Offloading Yes -Type of Offloading Surgical Shoe -Treatment Response Procedure Tolerated Well 20-right posterior heel -Time 11:31 -Correct Patient Yes -Correct Side, Site, Position Yes -Correct Procedure Yes -Procedure Performed Yes -Type of Procedure Debridement -Clinical Debridement Subcutaneous -Post Debridement Size (cm) - Length 4.1 -Post Debridement Size (cm) - Width 4.1 -Post Debridement Size (cm) - Depth 0.1 -Total Square Cm 16.81 -Wound/Ulcer Outcome Not Healed -Ulcer Cleansing Rinsed/ Irrigated with Saline -Foul Odor after Cleansing No -Bioengineered Tissue No -Bleeding Controlled with Pressure -Offloading Yes -Type of Offloading Surgical Shoe -Treatment Response Procedure Tolerated Well #1 right medial heel -Time 11:31 -Correct Patient Yes -Correct Side, Site, Position Yes -Correct Procedure Yes -Procedure Performed Yes -Type of Procedure Debridement -Clinical Debridement Subcutaneous -Post Debridement Size (cm) - Length 1.1 -Post Debridement Size (cm) - Width 2 -Post Debridement Size (cm) - Depth 0.2 -Total Square Cm 2.2 -Wound/Ulcer Outcome Not Healed -Ulcer Cleansing Rinsed/ Irrigated with Saline -Foul Odor after Cleansing No -Bioengineered Tissue No -Bleeding Controlled with Pressure -Offloading Yes -Type of Offloading Surgical Shoe -Treatment Response Procedure Tolerated Well Pain Scale: 0-10 Numeric Is Patient Pain Free? Yes Wound debrided: plantar posterior heel Laterality: Right Wound Grade/Stage: grade 3 Type of Debridement: Excisional debridement Anesthesia Used: 5% Lidocaine Gel Depth: in the subcutaneous layer Percentage of wound debrided: 100 Instrument Used: #15 blade Tissue Removed: fibrous, devitalized subcutaneous, biofilm, slough Severity: Fat Layer Exposed Amount of bleeding with debridement: Mild Bleeding Controlled with: Pressure Patient tolerated procedure well - Additional Wound Wound debrided: plantar heel (more distal site), dorsal 2nd toe, leg anterior lateral Laterality: Right Wound Grade/Stage: grade 1 Type of Debridement: Excisional debridement Anesthesia Used: 5% Lidocaine Gel Depth: in the subcutaneous layer Percentage of wound debrided: 100 Instrument Used: #15 blade Tissue Removed: fibrous, devitalized subcutaneous, biofilm, slough Severity: Fat Layer Exposed Amount of bleeding with debridement: Mild Bleeding Controlled with: Pressure Patient tolerated procedure: Patient tolerated procedure well - Additional Wound Wound debrided: sub 1st metatarsal head Laterality: Right Wound Grade/Stage: grade 2 Type of Debridement: Excisional debridement Anesthesia Used: 5% Lidocaine Gel Depth: in the subcutaneous layer Percentage of wound debrided: 100 Instrument Used: #15 blade Tissue Removed: fibrous, devitalized subcutaneous, biofilm, slough Severity: Fat Layer Exposed Amount of bleeding with debridement: Mild Bleeding Controlled with: Pressure Patient tolerated procedure: Patient tolerated procedure well - Additional Wound Wound debrided: leg anterior Laterality: Left Wound Grade/Stage: grade 1 Type of Debridement: Excisional debridement Anesthesia Used: 5% Lidocaine Gel Depth: in the subcutaneous layer Percentage of wound debrided: 100 Instrument Used: #15 blade Tissue Removed: fibrous, devitalized subcutaneous, biofilm, slough Severity: Fat Layer Exposed Amount of bleeding with debridement: Mild Bleeding Controlled with: Pressure Patient tolerated procedure: Patient tolerated procedure well Assessment/Plan Assessment: Right forefoot medial plantar ulcer. right medial distal forefoot ulcer. dorsal medial right foot ulcer. left leg ulcer. right leg ulcer. Plantar posterior right heel ulcer stable. Plantar heel ulcer stable. Right second toe ulcer and new trauma. Diabetes with neuropathy. lymphedema and continued leg swelling with recent exacerbation. peripheral vacular disease. venous insufficiency. Subacute osteomyelitis right calcaneus work-up in process Plan: I discussed his case and treatment plan. Subcutaneous excisional debridement was performed to ulcer sites as noted in the nursing clinical panel to the right foot. To continue daily dressing changes with Aquacel. I recommend revisiting the work-up for osteomyelitis of the right calcaneus and sub acute manner at this time. Updated right foot x-rays were obtained to further evaluate the calcaneus and also his new injury site of the second toe. An MRI was also formally order for evaluation of the right calcaneus and he needs to reschedule this. To maintain improved skin integrity by applying lac hydrin lotion to both legs daily. Continue circaid wraps bilateral legs daily; it is okay to apply tubigrip prior to application of CircAid foot wrap to better keep his wound dressings in place. To continue compression pump device daily; he is doing well with this. To proceed as previously advised with his lymphedema follow-up as advised. He is [facility] from the [facility] at this time. [place] compression garments to promote improved continued edema management at a more proximal level was approved for right lower extremity use; to use as advised. It is noted he was not approved for the left lower extremity because he did not meet qualifying criteria of open left leg current ulcer site. To continue Lasix use as advised by primary care physician. To follow-up with primary care physician within the next month for progressive dec onditioning status, edema management and also for medication refills. To complete the recommended primary care physician and physical therapy follow-up to work on deconditioning prevention and obtaining his hospital bed that was previously ordered. He is reassured that I do not notice any odor today or leticia signs of infection. However given his report of odor coming from the foot in conjunction with increased edema, an x-ray was ordered of the right foot and wound cultures were also obtained. he does have demonstrated pathological bacterial growth. I recommend cleaning the ulcer sites daily with antimicrobial soap which was dispensed previously (hibiclens) until this bioburden issue is addressed which may be contributing to part of his delayed healing. He will also monitor for signs of worsening or development of local or systemic illness. To continue with portion control for weight loss and proper glycemic control and nutritional supplementation to optimize healing. His hemoglobin A1c went from 9.0 to 7.4. To continue strict offloading to all these ulcer sites. He has a donut offloading pillow and he was advised to use this. To follow-up with Dr. Peng as advised for the recommended bilateral intervention, venous. His recent vascular intervention in the left lower extremity is noted. All of his questions were answered. He understands he is still at risk for limb loss. To follow-up at the wound care center in 1-2 weeks or call sooner if he has any questions or concerns. He is on a palliative care program.
[2019-04-06 10:51] VITALS: BP 148/85; PULSE 55; RESP 18; TEMP 36.6; BMI 53.1
--- NOTE | 2019-04-06 11:32 | PCM.WC.PN ---
(1) Debility Status: Chronic Code(s): R53.81 - Other malaise (2) Lymphedema Status: Chronic Code(s): I89.0 - Lymphedema, not elsewhere classified (3) Venous insufficiency Status: Chronic Code(s): I87.2 - Venous insufficiency (chronic) (peripheral) (4) Peripheral vascular disease Status: Chronic Code(s): I73.9 - Peripheral vascular disease, unspecified (5) Ulcer of right foot with fat layer exposed Status: Chronic Code(s): L97.512 - Non-pressure chronic ulcer of other part of right foot with fat layer exposed (6) Ulcer of right lower extremity with fat layer exposed Status: Chronic Code(s): L97.912 - Non-pressure chronic ulcer of unspecified part of right lower leg with fat layer exposed (7) Ulcer of left lower extremity with fat layer exposed Status: Chronic Code(s): L97.922 - Non-pressure chronic ulcer of unspecified part of left lower leg with fat layer exposed (8) Walking difficulty due to ankle and foot Status: Chronic Code(s): R26.2 - Difficulty in walking, not elsewhere classified (9) Obesity Status: Chronic Code(s): E66.9 - Obesity, unspecified (10) Lower extremity edema Status: Chronic Code(s): R60.0 - Localized edema (11) Type 2 diabetes mellitus with diabetic polyneuropathy Status: Chronic Code(s): E11.42 - Type 2 diabetes mellitus with diabetic polyneuropathy (12) Malnutrition Status: Chronic Code(s): E46 - Unspecified protein-calorie malnutrition (13) Osteomyelitis of right foot Status: Suspected Code(s): M86.9 - Osteomyelitis, unspecified Type of Wound Date of Service: 04/06/19 Chief Complaint: Ulcer right second toe. right leg ulcer. Multiple ulcers and leg swelling. Right heel ulcers History of Wound: 63 year old male was seen for right heel ulcer with chronic osteomyelitis, right plantar heel ulcer, right forefoot ulcers and left and right leg ulcer. He denies fever, chill, nausea, vomiting, loss of appetite. He will continue dressing as advised with Aquacel. He uses the compression pumps 2-3 times a day with significant edema reduction. He completed his vascular surgery angioplasty with Dr. Peng for the left lower extremity. He has received treatment at the lymphedema clinic as well. He uses CircAid compression wraps. He has followed with Dr. Peng as advised. He wears a right cam walker boot. He did not get his completed MRI performed yet for the right foot. This is scheduled for this upcoming Thursday. He utilizes a motorized scooter for mobilization. States he is doing at-home exercises and has stopped consuming canned food products to decrease sodium intake. He has ongoing bilateral limb weeping and is following up with his primary care physician for this as well. Is previously been treated for edema reduction and yeast infections. Progress of Wound: Stable - Physical Exam Vital Signs Temp Pulse Resp BP 97.8 F 55 L 18 148/85 H 04/06/19 10:51 04/06/19 10:51 04/06/19 10:51 04/06/19 10:51 General: Alert, Oriented x3, Cooperative, No apparent distress Extremities: No Calf Tenderness, Cool, Edema Skin: Ulcer/ Wound - Anterior left leg wound as fibrotic base with slough. Multiple right lower extermity wound to include a new wound at the lateral posterior right foot all having fibrotic base, macerated in appearance with slough present. Wound Measurements and Assessment WC - Nurse 1 - General Ulcer Measurement Start: 03/30/19 10:58 Freq: Status: Active Protocol: Activity Type Activity Date Activity User E-Sign Co-Sign Detail Recorded Client Recorded Date Recorded By Document 04/06/19 10:51 DL [id number] 04/06/19 11:02 DL 04/06/19 10:51 Wound Center Nurse 1 [Ulcer Assessment] 29-left anterior bernstein -Combined with other wound No -Current Size (cm) - Length 0.6 -Current Size (cm) - Width 1.2 -Current Size (cm) - Depth 0.2 -Total Square Cm 0.72 -Tunneling No -Undermining/Tunneling No -Circular Undermining No -Exudate Amt Small -Exudate Type Serosanguineous -Wound Margin Flat & Intact -Granulation Amt Small (1-33%) -Granulation Quality [place] -Slough/Fibrin Yes -Necrosis Amt Small (1-33%) -Necrotic Tissue Type Adherent Slough -Structure Exposed N/A -Texture (Susy-wound Skin Appearance) Assessed -Moisture (Susy-wound Skin Appearance Dry/Scaly ) -Color (Susy-wound Skin Appearance) Assessed -Temperature (Susy-wound Skin No Abnormality Appearance) (Pt Warm) -Tenderness on Palpation (Susy-wound No Skin Appearance) -Ulcer Cleansing Wound Cleanser -Foul Odor after Cleansing No -Anesthetic Used 4% Lidocaine Solution #28- R MEDIAL FOOT -Combined with other wound No -Current Size (cm) - Length 5 -Current Size (cm) - Width 10.5 -Current Size (cm) - Depth 0.1 -Total Square Cm 52.5 -Tunneling No -Undermining/Tunneling No -Circular Undermining No -Exudate Amt Large -Exudate Type Serosanguineous -Wound Margin Flat & Intact -Granulation Amt Medium (34-66%) -Granulation Quality [place] -Slough/Fibrin Yes -Necrosis Amt Medium (34-66%) -Necrotic Tissue Type Adherent Slough -Structure Exposed N/A -Texture (Susy-wound Skin Appearance) No Abnormality -Moisture (Susy-wound Skin Appearance Maceration ) -Color (Susy-wound Skin Appearance) Assessed -Temperature (Susy-wound Skin No Abnormality Appearance) (Pt Warm) -Tenderness on Palpation (Susy-wound No Skin Appearance) -Ulcer Cleansing Wound Cleanser -Foul Odor after Cleansing No -Anesthetic Used 4% Lidocaine Solution 27-right 2nd toe -Combined with other wound No -Current Size (cm) - Length 2.5 -Current Size (cm) - Width 1.5 -Current Size (cm) - Depth 0.2 -Total Square Cm 3.75 -Tunneling No -Undermining/Tunneling No -Circular Undermining No -Exudate Amt Small -Exudate Type Serosanguineous -Wound Margin Flat & Intact -Granulation Amt Medium (34-66%) -Granulation Quality [place] -Slough/Fibrin Yes -Necrosis Amt Medium (34-66%) -Necrotic Tissue Type Adherent Slough -Structure Exposed N/A -Texture (Susy-wound Skin Appearance) Assessed -Moisture (Susy-wound Skin Appearance Maceration ) -Color (Susy-wound Skin Appearance) Assessed -Temperature (Susy-wound Skin No Abnormality Appearance) (Pt Warm) -Tenderness on Palpation (Susy-wound No Skin Appearance) -Ulcer Cleansing Wound Cleanser -Foul Odor after Cleansing No -Anesthetic Used 4% Lidocaine Solution #21 rt plantar -Combined with other wound No -Current Size (cm) - Length 0.5 -Current Size (cm) - Width 0.5 -Current Size (cm) - Depth 0.2 -Total Square Cm 0.25 -Tunneling No -Undermining/Tunneling No -Circular Undermining No -Exudate Amt Small -Exudate Type Serosanguineous -Wound Margin Flat & Intact -Granulation Amt Small (1-33%) -Granulation Quality [place] -Slough/Fibrin Yes -Necrosis Amt Large (67-100%) -Necrotic Tissue Type Adherent Slough -Structure Exposed N/A -Texture (Susy-wound Skin Appearance) Assessed -Moisture (Susy-wound Skin Appearance Assessed, ) Maceration -Color (Susy-wound Skin Appearance) Assessed -Temperature (Susy-wound Skin No Abnormality Appearance) (Pt Warm) -Tenderness on Palpation (Susy-wound No Skin Appearance) -Ulcer Cleansing Wound Cleanser -Foul Odor after Cleansing No -Anesthetic Used 4% Lidocaine Solution 20-right posterior heel -Combined with other wound No -Current Size (cm) - Length 4.6 -Current Size (cm) - Width 3.4 -Current Size (cm) - Depth 0.3 -Total Square Cm 15.64 -Tunneling No -Undermining/Tunneling No -Circular Undermining No -Exudate Amt Large -Exudate Type Serosanguineous -Wound Margin Thickened -Granulation Amt Small (1-33%) -Granulation Quality [place] -Slough/Fibrin Yes -Necrosis Amt Large (67-100%) -Necrotic Tissue Type Adherent Slough -Structure Exposed N/A -Texture (Susy-wound Skin Appearance) Callus -Moisture (Susy-wound Skin Appearance Maceration ) -Color (Susy-wound Skin Appearance) Assessed -Temperature (Susy-wound Skin No Abnormality Appearance) (Pt Warm) -Tenderness on Palpation (Susy-wound No Skin Appearance) -Ulcer Cleansing Wound Cleanser -Foul Odor after Cleansing No -Anesthetic Used 4% Lidocaine Solution #1 right medial heel -Combined with other wound No -Current Size (cm) - Length 1.1 -Current Size (cm) - Width 2.3 -Current Size (cm) - Depth 0.4 -Total Square Cm 2.53 -Tunneling No -Undermining/Tunneling No -Circular Undermining No -Exudate Amt Small -Exudate Type Serosanguineous -Wound Margin Flat & Intact -Granulation Amt Small (1-33%) -Granulation Quality [place] -Slough/Fibrin Yes -Necrosis Amt Large (67-100%) -Necrotic Tissue Type Adherent Slough -Structure Exposed N/A -Texture (Susy-wound Skin Appearance) Callus -Moisture (Susy-wound Skin Appearance Maceration ) -Color (Susy-wound Skin Appearance) Assessed -Temperature (Susy-wound Skin No Abnormality Appearance) (Pt Warm) -Tenderness on Palpation (Susy-wound No Skin Appearance) -Ulcer Cleansing Wound Cleanser -Foul Odor after Cleansing No -Anesthetic Used 4% Lidocaine Solution [Edema Assessment] -Lower Limb Edema Present Yes -Right Calf (cm) 58.5 -Right Ankle (cm) 31 -Left Calf (cm) 56.5 -Left Ankle (cm) 32 WC - Nurse 2 - General Ulcer CM Notes Start: 03/30/19 10:58 Freq: Status: Active Protocol: Activity Type Activity Date Activity User E-Sign Co-Sign Detail Recorded Client Recorded Date Recorded By Document 04/06/19 11:24 NORRIS [id number] 04/06/19 11:31 NORRIS 04/06/19 11:24 Wound Center Nurse 2 [Procedure/Treatment] 30-right lateral foot -Time 11:31 -Correct Patient Yes -Correct Side, Site, Position Yes -Correct Procedure Yes -Procedure Performed Yes -Type of Procedure Debridement -Clinical Debridement Subcutaneous -Post Debridement Size (cm) - Length 4.4 -Post Debridement Size (cm) - Width 1.9 -Post Debridement Size (cm) - Depth 0.1 -Total Square Cm 8.36 -Wound/Ulcer Outcome Not Healed -Ulcer Cleansing Rinsed/ Irrigated with Saline -Foul Odor after Cleansing No -Bioengineered Tissue No -Bleeding Controlled with Pressure -Offloading Yes -Type of Offloading Surgical Shoe -Treatment Response Procedure Tolerated Well 29-left anterior bernstein -Time 11:28 -Correct Patient Yes -Correct Side, Site, Position Yes -Correct Procedure Yes -Procedure Performed Yes -Type of Procedure Debridement -Clinical Debridement Subcutaneous -Post Debridement Size (cm) - Length 0.6 -Post Debridement Size (cm) - Width 1.3 -Post Debridement Size (cm) - Depth 0.2 -Total Square Cm 0.78 -Wound/Ulcer Outcome Not Healed -Ulcer Cleansing Rinsed/ Irrigated with Saline -Foul Odor after Cleansing No -Bioengineered Tissue No -Bleeding Controlled with Pressure -Offloading Yes -Type of Offloading Surgical Shoe -Treatment Response Procedure Tolerated Well #28- R MEDIAL FOOT -Time 11:28 -Correct Patient Yes -Correct Side, Site, Position Yes -Correct Procedure Yes -Procedure Performed Yes -Type of Procedure Debridement -Clinical Debridement Subcutaneous -Post Debridement Size (cm) - Length 5.1 -Post Debridement Size (cm) - Width 10.6 -Post Debridement Size (cm) - Depth 0.1 -Total Square Cm 54.06 -Wound/Ulcer Outcome Not Healed -Ulcer Cleansing Rinsed/ Irrigated with Saline -Foul Odor after Cleansing No -Bioengineered Tissue No -Bleeding Controlled with Pressure -Offloading Yes -Type of Offloading Surgical Shoe -Treatment Response Procedure Tolerated Well 27-right 2nd toe -Time 11:29 -Correct Patient Yes -Correct Side, Site, Position Yes -Correct Procedure Yes -Procedure Performed Yes -Type of Procedure Debridement -Clinical Debridement Subcutaneous -Post Debridement Size (cm) - Length 2.6 -Post Debridement Size (cm) - Width 1.5 -Post Debridement Size (cm) - Depth 0.2 -Total Square Cm 3.90 -Wound/Ulcer Outcome Not Healed -Ulcer Cleansing Rinsed/ Irrigated with Saline -Foul Odor after Cleansing No -Bioengineered Tissue No -Bleeding Controlled with Pressure -Offloading Yes -Type of Offloading Surgical Shoe -Treatment Response Procedure Tolerated Well #21 rt plantar -Time 11:29 -Correct Patient Yes -Correct Side, Site, Position Yes -Correct Procedure Yes -Procedure Performed Yes -Type of Procedure Debridement -Clinical Debridement Subcutaneous -Post Debridement Size (cm) - Length 0.6 -Post Debridement Size (cm) - Width 0.6 -Post Debridement Size (cm) - Depth 0.2 -Total Square Cm 0.36 -Wound/Ulcer Outcome Not Healed -Ulcer Cleansing Rinsed/ Irrigated with Saline -Foul Odor after Cleansing No -Bioengineered Tissue No -Bleeding Controlled with Pressure -Offloading Yes -Type of Offloading Surgical Shoe -Treatment Response Procedure Tolerated Well 20-right posterior heel -Time 11:30 -Correct Patient Yes -Correct Side, Site, Position Yes -Correct Procedure Yes -Procedure Performed Yes -Type of Procedure Debridement -Clinical Debridement Subcutaneous -Post Debridement Size (cm) - Length 4.7 -Post Debridement Size (cm) - Width 3.5 -Post Debridement Size (cm) - Depth 0.3 -Total Square Cm 16.45 -Wound/Ulcer Outcome Not Healed -Ulcer Cleansing Rinsed/ Irrigated with Saline -Foul Odor after Cleansing No -Bioengineered Tissue No -Bleeding Controlled with Pressure -Offloading Yes -Type of Offloading Surgical Shoe -Treatment Response Procedure Tolerated Well #1 right medial heel -Time 11:30 -Correct Patient Yes -Correct Side, Site, Position Yes -Correct Procedure Yes -Procedure Performed Yes -Type of Procedure Debridement -Clinical Debridement Subcutaneous -Post Debridement Size (cm) - Length 1.2 -Post Debridement Size (cm) - Width 2.3 -Post Debridement Size (cm) - Depth 0.4 -Total Square Cm 2.76 -Wound/Ulcer Outcome Not Healed -Ulcer Cleansing Rinsed/ Irrigated with Saline -Foul Odor after Cleansing No -Bioengineered Tissue No -Bleeding Controlled with Pressure -Offloading Yes -Type of Offloading Surgical Shoe -Treatment Response Procedure Tolerated Well [See Physician Procedure note for Specifics] Pain Scale: 0-10 Numeric [Pain] -Is Patient Pain Free? Yes Musculoskeletal: No Tenderness to Palpation of Joints or Extremities Neurological: - - diminished epicritic sensation Psych/Mental Status: Normal Affect, Appropriate, Alert and oriented to time, place, person, mood and affect Debridement Note Post-Debridement Measurements/Treatment WC - Nurse 2 - General Ulcer CM Notes Start: 03/30/19 10:58 Freq: Status: Active Protocol: Activity Type Activity Date Activity User E-Sign Co-Sign Detail Recorded Client Recorded Date Recorded By Document 03/30/19 11:29 [id number] 03/30/19 11:33 Document 04/06/19 11:24 [id number] [id number] 04/06/19 11:31 03/30/19 04/06/19 11:29 11:24 Wound Center Nurse 2 30-right lateral foot -Time 11:31 -Correct Patient Yes -Correct Side, Site, Position Yes -Correct Procedure Yes -Procedure Performed Yes -Type of Procedure Debridement -Clinical Debridement Subcutaneous -Post Debridement Size (cm) - Length 4.4 -Post Debridement Size (cm) - Width 1.9 -Post Debridement Size (cm) - Depth 0.1 -Total Square Cm 8.36 -Wound/Ulcer Outcome Not Healed -Ulcer Cleansing Rinsed/ Irrigated with Saline -Foul Odor after Cleansing No -Bioengineered Tissue No -Bleeding Controlled with Pressure -Offloading Yes -Type of Offloading Surgical Shoe -Treatment Response Procedure Tolerated Well 29-left anterior bernstein -Time 11: 11:28 -Correct Patient Yes Yes -Correct Side, Site, Position Yes Yes -Correct Procedure Yes Yes -Procedure Performed Yes Yes -Type of Procedure Debridement Debridement -Clinical Debridement Subcutaneous Subcutaneous -Post Debridement Size (cm) - Length 3.5 0.6 -Post Debridement Size (cm) - Width 3.5 1.3 -Post Debridement Size (cm) - Depth 0.1 0.2 -Total Square Cm 12.25 0.78 -Wound/Ulcer Outcome Not Healed Not Healed -Ulcer Cleansing Rinsed/ Rinsed/ Irrigated with Irrigated with Saline Saline -Foul Odor after Cleansing No No -Bioengineered Tissue No No -Bleeding Controlled with Pressure Pressure -Offloading Yes Yes -Type of Offloading Surgical Shoe Surgical Shoe -Treatment Response Procedure Procedure Tolerated Well Tolerated Well #28- R MEDIAL FOOT -Time 11: 11:28 -Correct Patient Yes Yes -Correct Side, Site, Position Yes Yes -Correct Procedure Yes Yes -Procedure Performed Yes Yes -Type of Procedure Debridement Debridement -Clinical Debridement Subcutaneous Subcutaneous -Post Debridement Size (cm) - Length 5.1 5.1 -Post Debridement Size (cm) - Width 10.5 10.6 -Post Debridement Size (cm) - Depth 0.2 0.1 -Total Square Cm 53.55 54.06 -Wound/Ulcer Outcome Not Healed Not Healed -Ulcer Cleansing Rinsed/ Rinsed/ Irrigated with Irrigated with Saline Saline -Foul Odor after Cleansing No No -Bioengineered Tissue No No -Bleeding Controlled with Pressure Pressure -Offloading Yes Yes -Type of Offloading Surgical Shoe Surgical Shoe -Treatment Response Procedure Procedure Tolerated Well Tolerated Well 27-right 2nd toe -Time 11: 11:29 -Correct Patient Yes Yes -Correct Side, Site, Position Yes Yes -Correct Procedure Yes Yes -Procedure Performed Yes Yes -Type of Procedure Debridement Debridement -Clinical Debridement Subcutaneous Subcutaneous -Post Debridement Size (cm) - Length 2.5 2.6 -Post Debridement Size (cm) - Width 2.1 1.5 -Post Debridement Size (cm) - Depth 0.1 0.2 -Total Square Cm 5.25 3.90 -Wound/Ulcer Outcome Not Healed Not Healed -Ulcer Cleansing Rinsed/ Rinsed/ Irrigated with Irrigated with Saline Saline -Foul Odor after Cleansing No No -Bioengineered Tissue No No -Bleeding Controlled with Pressure Pressure -Offloading Yes Yes -Type of Offloading Surgical Shoe Surgical Shoe -Treatment Response Procedure Procedure Tolerated Well Tolerated Well #21 rt plantar -Time 11: 11:29 -Correct Patient Yes Yes -Correct Side, Site, Position Yes Yes -Correct Procedure Yes Yes -Procedure Performed Yes Yes -Type of Procedure Debridement Debridement -Clinical Debridement Subcutaneous Subcutaneous -Post Debridement Size (cm) - Length 1.2 0.6 -Post Debridement Size (cm) - Width 0.8 0.6 -Post Debridement Size (cm) - Depth 0.1 0.2 -Total Square Cm 0.96 0.36 -Wound/Ulcer Outcome Not Healed Not Healed -Ulcer Cleansing Rinsed/ Rinsed/ Irrigated with Irrigated with Saline Saline -Foul Odor after Cleansing No No -Bioengineered Tissue No No -Bleeding Controlled with Pressure Pressure -Offloading Yes Yes -Type of Offloading Surgical Shoe Surgical Shoe -Treatment Response Procedure Procedure Tolerated Well Tolerated Well 20-right posterior heel -Time 11: 11:30 -Correct Patient Yes Yes -Correct Side, Site, Position Yes Yes -Correct Procedure Yes Yes -Procedure Performed Yes Yes -Type of Procedure Debridement Debridement -Clinical Debridement Subcutaneous Subcutaneous -Post Debridement Size (cm) - Length 4.1 4.7 -Post Debridement Size (cm) - Width 4.1 3.5 -Post Debridement Size (cm) - Depth 0.1 0.3 -Total Square Cm 16.81 16.45 -Wound/Ulcer Outcome Not Healed Not Healed -Ulcer Cleansing Rinsed/ Rinsed/ Irrigated with Irrigated with Saline Saline -Foul Odor after Cleansing No No -Bioengineered Tissue No No -Bleeding Controlled with Pressure Pressure -Offloading Yes Yes -Type of Offloading Surgical Shoe Surgical Shoe -Treatment Response Procedure Procedure Tolerated Well Tolerated Well #1 right medial heel -Time 11: 11:30 -Correct Patient Yes Yes -Correct Side, Site, Position Yes Yes -Correct Procedure Yes Yes -Procedure Performed Yes Yes -Type of Procedure Debridement Debridement -Clinical Debridement Subcutaneous Subcutaneous -Post Debridement Size (cm) - Length 1.1 1.2 -Post Debridement Size (cm) - Width 2 2.3 -Post Debridement Size (cm) - Depth 0.2 0.4 -Total Square Cm 2.2 2.76 -Wound/Ulcer Outcome Not Healed Not Healed -Ulcer Cleansing Rinsed/ Rinsed/ Irrigated with Irrigated with Saline Saline -Foul Odor after Cleansing No No -Bioengineered Tissue No No -Bleeding Controlled with Pressure Pressure -Offloading Yes Yes -Type of Offloading Surgical Shoe Surgical Shoe -Treatment Response Procedure Procedure Tolerated Well Tolerated Well Pain Scale: 0-10 Numeric Is Patient Pain Free? Yes Yes Wound debrided: leg, 2nd toe dorsal medial forefoot, plantar heel Laterality: Right Wound Grade/Stage: grade 1 Type of Debridement: Excisional debridement Anesthesia Used: 5% Lidocaine Gel Depth: in the subcutaneous layer Percentage of wound debrided: 100 Instrument Used: #15 blade Tissue Removed: Fibrous, devitalized subcutaneous, biofilm, slough Severity: Fat Layer Exposed Amount of bleeding with debridement: Mild Bleeding Controlled with: Pressure Patient tolerated procedure well - Additional Wound Wound debrided: sub 1st metatarsal head Laterality: Right Wound Grade/Stage: grade 2 Type of Debridement: Excisional debridement Anesthesia Used: 5% Lidocaine Gel Depth: in the subcutaneous layer Percentage of wound debrided: 100 Instrument Used: #15 blade Tissue Removed: Fibrous, devitalized subcutaneous, biofilm, slough Severity: Fat Layer Exposed Amount of bleeding with debridement: Mild Bleeding Controlled with: Pressure Patient tolerated procedure: Patient tolerated procedure well - Additional Wound Wound debrided: Leg Laterality: Left Wound Grade/Stage: Grade 1 Type of Debridement: Excisional debridement Anesthesia Used: 5% Lidocaine Gel Depth: in the subcutaneous layer Percentage of wound debrided: 100 Instrument Used: #15 blade Tissue Removed: Fibrous, devitalized subcutaneous, biofilm, slough Severity: Fat Layer Exposed Amount of bleeding with debridement: Mild Bleeding Controlled with: Pressure Patient tolerated procedure: Patient tolerated procedure well - Additional Wound Wound debrided: Plantar posterior heel Laterality: Right Wound Grade/Stage: Grade 3 Type of Debridement: Excisional debridement Anesthesia Used: 5% Lidocaine Gel Depth: in the subcutaneous layer Percentage of wound debrided: 100 Instrument Used: #15 blade Tissue Removed: Fibrous, devitalized subcutaneous, biofilm, slough Severity: Fat Layer Exposed Amount of bleeding with debridement: Mild Bleeding Controlled with: Pressure Patient tolerated procedure: Patient tolerated procedure well Assessment/Plan Assessment: Right forefoot medial plantar ulcer. right medial distal forefoot ulcer. dorsal medial right foot ulcer. left leg ulcer. right leg ulcer. Plantar posterior right heel ulcer stable. Plantar heel ulcer stable. Right second toe ulcer and new trauma. Diabetes with neuropathy. lymphedema and continued leg swelling with recent exacerbation. peripheral vacular disease. venous insufficiency. Subacute osteomyelitis right calcaneus work-up in process Plan: I discussed his case and treatment plan. Subcutaneous excisional debridement was performed to ulcer sites as noted in the nursing clinical panel to the right foot. To continue daily dressing changes with Aquacel. I recommend revisiting the work-up for osteomyelitis of the right calcaneus and sub acute manner at this time. Updated right foot x-rays were obtained to further evaluate the calcaneus and also his new injury site of the second toe. An MRI was also formally order for evaluation of the right calcaneus and he needs to reschedule this. To maintain improved skin integrity by applying lac hydrin lotion to both legs daily. Continue circaid wraps bilateral legs daily; it is okay to apply tubigrip prior to application of CircAid foot wrap to better keep his wound dressings in place. To continue compression pump device daily; he is doing well with this. To proceed as previously advised with his lymphedema follow-up as advised. He is [facility] from the [facility] at this time. [place] compression garments to promote improved continued edema management at a more proximal level was approved for right lower extremity use; to use as advised. It is noted he was not approved for the left lower extremity because he did not meet qualifying criteria of open left leg current ulcer site. To continue Lasix use as advised by primary care physician. To follow-up with primary care physician within the next month for progressive deconditioning status, edema management and also for medication refills. To complete the recommended primary care physician and physical therapy follow-up to work on deconditioning prevention and obtaining his hospital bed that was previously ordered. He is reassured that I do not notice any odor today or leticia signs of infection. However given his report of odor coming from the foot in conjunction with increased edema, an x-ray was ordered of the right foot and wound cultures were also obtained. he does have demonstrated pathological bacterial growth. I recommend cleaning the ulcer sites daily with antimicrobial soap which was dispensed previously (hibiclens) until this bioburden issue is addressed which may be contributing to part of his delayed healing. He will also monitor for signs of worsening or development of local or systemic illness. To continue with portion control for weight loss and proper glycemic control and nutritional supplementation to optimize healing. His hemoglobin A1c went from 9.0 to 7.4. To continue strict offloading to all these ulcer sites. He has a donut offloading pillow and he was advised to use this. To follow-up with Dr. Peng as advised for the recommended bilateral intervention, venous. His recent vascular intervention in the left lower extremity is noted. All of his questions were answered. He understands he is still at risk for limb loss. To follow-up at the wound care center in 1 week or call sooner if he has any questions or concerns. He is on a palliative care program.
== END 2019-04-15 23:59 ==
LOC: WC 10:45
PROVIDERS: Family Provider Family Medicine; PCP Family Medicine; Referring Provider Podiatrist; Visit Provider Podiatrist
DX: E11.621 Type 2 diabetes mellitus with foot ulcer (principal); E11.51 Type 2 diabetes mellitus with diabetic peripheral angiopathy without gangrene; E11.42 Type 2 diabetes mellitus with diabetic polyneuropathy; L97.412 Non-pressure chronic ulcer of right heel and midfoot with fat layer exposed; E11.622 Type 2 diabetes mellitus with other skin ulcer; L97.512 Non-pressure chronic ulcer of other part of right foot with fat layer exposed; L97.822 Non-pressure chronic ulcer of other part of left lower leg with fat layer exposed; I89.0 Lymphedema, not elsewhere classified; R60.0 Localized edema; I87.2 Venous insufficiency (chronic) (peripheral); E66.9 Obesity, unspecified; M86.671 Other chronic osteomyelitis, right ankle and foot; E11.69 Type 2 diabetes mellitus with other specified complication
CPT/HCPCS: 11042; 11045

== ENCOUNTER → 2019-04-07 09:52 | Outpatient (CLI) | payer MEDICARE, MEDICAID, SELFPAY ==
[2019-03-15 15:33] VITALS: BMI 53.1
[2019-04-06 10:51] VITALS: BMI 53.1
--- NOTE | 2019-04-07 10:03 | RAD_ITS ---
STUDY: X-RAY - RIGHT FOOT CLINICAL: Male, 63 years old. OSTEOMYELITIS TECHNIQUE: 3 view(s) of the foot. COMPARISON: 02/28/2019 FINDINGS: First phalangeal amputations. Soft tissue swelling. No osteolysis or periosteal reaction. Vascular calcifications. RAD/Foot min 3 Views IMPRESSION: No radiographic evidence of osteomyelitis. If there is further concern for osteomyelitis, consider correlation with three-phase bone scan or contrast-enhanced MRI. Electronically Signed: Hesham Osborn MD at 0:42 EST Tel , Service support ,
--- NOTE | 2019-04-07 10:20 | MRI_ITS ---
STUDY: MRI RIGHT REARFOOT WITHOUT CONTRAST REASON FOR EXAM: Chronic ulcer, evaluate for osteomyelitis. TECHNIQUE: Standardized fat and water weighted pulse sequences were obtained in all 3 orthogonal planes. COMPARISON: MRI images 08/01/2016 and radiographs 04/07/2019. FINDINGS: There is edema in the subcutis adipose space without focal fluid collection to indicate soft tissue abscess. There is a soft tissue ulcer of the plantar heel pad. Normal posterior tibialis tendon. There is a type II accessory navicular. Normal flexor digitorum longus tendon. Normal flexor hallucis longus tendon. Normal peroneus longus and brevis tendons. Normal tibialis anterior tendon. Normal extensor hallucis longus tendon. Normal extensor digitorum longus tendons. There is mild insertional Achilles tendinosis (inversion recovery sagittal image 16) without discrete tendon tear. Normal plantar fascia. There is slight bone edema at the plantar aspect of the posterior tuberosity of the calcaneus (inversion recovery sagittal images 15-18), either reactive bone edema or early osteomyelitis. There is a small plantar calcaneal enthesophyte. There is atrophy with fat replacement of the intrinsic muscles of the rearfoot. Normal distal tibiofibular syndesmotic ligamentous complex. Normal lateral ligamentous complex. Normal subtalar ligaments and sinus tarsi. Normal deltoid ligamentous complexes. Normal plantar calcaneonavicular (spring) ligament. There is a small tibiotalar joint effusion (inversion recovery sagittal image 14). Normal talar dome. Normal subtalar articulations. Normal talonavicular articulation. Normal calcaneocuboid articulation. Normal navicular-cuneiform articulations. MRI/Lower Ext/No Jt/w/o IMPRESSION: Slight bone edema of the plantar aspect of the posterior tuberosity of the calcaneus, either reactive bone edema or early osteomyelitis. Edema in the subcutis adipose space and soft tissue ulcer of the plantar heel pad. Mild insertional Achilles tendinosis. Small tibiotalar joint effusion. Atrophy and intrinsic muscles of the hindfoot suggestive of peripheral neuropathy. Electronically Signed: Bharathi Kinsey MD at 12:59 EST Tel , Service support ,
--- NOTE | 2019-04-20 15:20 | PN.PCM_ITS ---
(1) Diabetes mellitus with polyneuropathy Status: Chronic Qualifiers: Code(s): E11.42 - Type 2 diabetes mellitus with diabetic polyneuropathy (2) Edema, lower extremity Status: Chronic Code(s): R60.0 - Localized edema (3) Lymphedema Status: Chronic Code(s): I89.0 - Lymphedema, not elsewhere classified (4) Malnutrition Status: Chronic Code(s): E46 - Unspecified protein-calorie malnutrition (5) Obesity Status: Chronic Code(s): E66.9 - Obesity, unspecified (6) Physical deconditioning Status: Chronic Code(s): R53.81 - Other malaise (7) Ulcer of left lower extremity with fat layer exposed Status: Chronic Code(s): L97.922 - Non-pressure chronic ulcer of unspecified part of left lower leg with fat layer exposed (8) Ulcer of right foot with fat layer exposed Status: Chronic Code(s): L97.512 - Non-pressure chronic ulcer of other part of right foot with fat layer exposed (9) Ulcer of right lower extremity with fat layer exposed Status: Chronic Code(s): L97.912 - Non-pressure chronic ulcer of unspecified part of right lower leg with fat layer exposed (10) Walking difficulty due to ankle and foot Status: Chronic Code(s): R26.2 - Difficulty in walking, not elsewhere classified Type of Wound Date of Service: 04/20/19 Chief Complaint: Ulcer right second toe. right leg ulcer. Right heel ulcers now merged to one ulcer. Ulcer right medial forefoot. Ulcer sub-first metatarsal head right. Ulcer left leg left History of Wound: 63 year old male was seen for right heel ulcer with chronic osteomyelitis, right plantar heel ulcer, right forefoot ulcers and left and right leg ulcer. He denies fever, chill, nausea, vomiting, loss of appetite. He will continue dressing as advised with Aquacel. He uses the compression pumps 2-3 times a day with significant edema reduction. He completed his vas cular surgery angioplasty with Dr. Peng for the left lower extremity. He has received treatment at the lymphedema clinic as well. He uses CircAid compression wraps. He has followed with Dr. Peng as advised. He wears a right cam walker boot. He utilizes a motorized scooter for mobilization. States he is doing at-home exercises and has stopped consuming canned food products to decrease sodium intake. He exercises for 15 minutes twice daily. He has ongoing bilateral limb weeping and decreased significantly this past week. He did complete his MRI like to review the results again today. He is having significant deterioration is unable to get in his own bed. He is mainly in a chair at home and also has trouble elevating the legs. He bought some orthopedic leg wedges to help elevate his limbs and is working with his cousin on advised to help get him into and out of his bed at home. Progress of Wound: Stable. Reduce swelling noted - Physical Exam General: Alert, Oriented x3, Cooperative, No apparent distress Extremities: No cyanosis, Capillary Refill Less than 3 Seconds, No Calf T enderness, Diminished Peripheral Pulses, Edema Skin: Ulcer/ Wound - No purulence, erythema has string, odor, infection. There is no exposed bone or necrosis or maceration. The skin is atrophic, hairless, and hyperpigmented. Musculoskeletal: No Tenderness to Palpation of Joints or Extremities, Muscle Wasting Neurological: - - Lack of normal epicritic sensation light touch consistent with neuropathy status Psych/Mental Status: Normal Affect, Appropriate Debridement Note Wound debrided: heel (two prior ulcers are now combined) Laterality: Right Wound Grade/Stage: grade 3 Type of Debridement: Excisional debridement Anesthesia Used: 5% Lidocaine Gel Depth: in the subcutaneous layer Percentage of wound debrided: 100 Instrument Used: #15 blade Tissue Removed: fibrous, devitalized subcutaneous, biofilm, slough Severity: Fat Layer Exposed Amount of bleeding with debridement: Mild Bleeding Controlled with: Pressure Patient tolerated procedure well - Additional Wound Wound debrided: dorsal 2nd toe, medial forefoot, lateral leg Laterality: Right Wound Grade/Stage: grade 1 Type of Debridement: Excisional debridement Anesthesia Used: 5% Lidocaine Gel Depth: in the subcutaneous layer Percentage of wound debrided: 100 Instrument Used: #15 blade Tissue Removed: fibrous, devitalized subcutaneous, biofilm, slough Severity: Fat Layer Exposed Amount of bleeding with debridement: Mild Bleeding Controlled with: Pressure Patient tolerated procedure: Patient tolerated procedure well - Additional Wound Wound debrided: plantar medial first metatarsal head Laterality: Right Wound Grade/Stage: grade 2 Type of Debridement: Excisional debridement Anesthesia Used: 5% Lidocaine Gel Depth: in the subcutaneous layer Percentage of wound debrided: 100 Instrument Used: #15 blade Tissue Removed: fibrous, devitalized subcutaneous, biofilm, slough Severity: Fat Layer Exposed Amount of bleeding with debridement: Mild Bleeding Controlled with: Pressure Patient tolerated procedure: Patient tolerated procedure well - Additional Wound Wound debrided: medial anterior leg Laterality: Left Wound Grade/Stage: grade 1 Type of Debridement: Excisional debridement Anesthesia Used: 5% Lidocaine Gel Depth: in the subcutaneous layer Percentage of wound debrided: 100 Instrument Used: #15 blade Tissue Removed: fibrous, devitalized subcutaneous, biofilm, slough Severity: Fat Layer Exposed Amount of bleeding with debridement: Mild Bleeding Controlled with: Pressure Patient tolerated procedure: Patient tolerated procedure well Assessment/Plan Clinical Impression(s) from Imaging Studies Foot X-Ray 04/07/19 10:03 IMPRESSION: No radiographic evidence of osteomyelitis. If there is further concern for osteomyelitis, consider correlation with three-phase bone scan or contrast-enhanced MRI. Electronically Signed: Hesham Osborn MD at 0:42 EST Tel , Service support , Lower Extremity MRI 04/07/19 10:20 IMPRESSION: Slight bone edema of the plantar aspect of the posterior tuberosity of the calcaneus, either reactive bone edema or early osteomyelitis. Edema in the subcutis adipose space and soft tissue ulcer of the plantar heel pad. Mild insertional Achilles tendinosis. Small tibiotalar joint effusion. Atrophy and intrinsic muscles of the hindfoot suggestive of peripheral neuropathy. Electronically Signed: Bharathi Kinsey MD at 12:59 EST Tel , Service support , Assessment: Right forefoot medial plantar ulcer. right medial distal forefoot ulcer. dorsal medial right foot ulcer. left leg ulcer. right leg ulcer. Plantar heel ulcer right. Right second toe ulcer. Diabetes with neuropathy. lymphedema and continued leg swelling with recent exacerbation. peripheral vacular disease. venous insufficiency. Subacute osteomyelitis right calcaneus work-up in process Plan: I discussed his case and treatment plan. Subcutaneous excisional debridement was performed to ulcer sites as noted in the nursing clinical panel to the right foot. To continue daily dressing changes with Aquacel. I recommend revisiting the work-up for osteomyelitis of the right calcaneus and sub acute manner at this time. Updated right foot x-rays were obtained to further evaluate the calcaneus and also his new injury site of the second toe. An MRI was also formally order for evaluation of the right calcaneus and this was discussed today. The report suggest that he has some edema in his calcaneus that may be consistent with repetitive microtrauma's or early bone infection. I reviewed the images personally and did not see any osseous destruction and do not use the current diagnosis of bone infection. There are no abscesses noted or other acute injuries. To maintain improved skin integrity by applying lac hydrin lotion to both legs daily. Continue circaid wraps bilateral legs daily; it is okay to apply tubigrip prior to application of CircAid foot wrap to better keep his wound dressings in place. To continue compression pump device daily; he is doing well with this. To proceed as previously advised with his lymphedema follow-up as advised. He is [facility] from the [facility] at this time. Farrow compression garments to promote improved continued edema management at a more proximal level was approved for right lower extremity use; to use as advised. It is noted he was not approved for the left lower extremity because he did not meet qualifying criteria of open left leg current ulcer site. To continue Lasix use as advised by primary care physician. To follow-up with primary care physician within the next month for progressive deconditioning status, edema management and also for medication refills. To complete the recommended primary care physician and physical therapy follow-up to work on deconditioning prevention and obtaining his hospital bed that was previously ordered. He is reassured that I do not notice any odor today or leticia signs of infection. he does have demonstrated pathological bacterial growth. I recommend cleaning the ulcer sites daily with antimicrobial soap which was dispensed previously (hibiclens) until this bioburden issue is addressed which may be contributing to part of his delayed healing. He will also monitor for signs of worsening or development of local or systemic illness. It is noted home health is helping him twice daily with this. To continue with portion control for weight loss and proper glycemic control and nutritional supplementation to optimize healing. His hemoglobin A1c went from 9.0 to 7.4. To continue strict offloading to all these ulcer sites. He has a donut offloading pillow and he was advised to use this. To follow-up with Dr. Peng as advised for the recommended bilateral intervention, venous. His recent vascular intervention in the left lower extremity is noted. All of his questions were answered. He understands he is still at risk for limb loss. To follow-up at the wound care center in 1 week or call sooner if he has any questions or concerns. He is on a palliative care program.
== END ==
PROVIDERS: Family Provider Family Medicine; PCP Family Medicine; Referring Provider Podiatrist; Visit Provider Podiatrist
DX: M86.9 Osteomyelitis, unspecified (principal); L98.499 Non-pressure chronic ulcer of skin of other sites with unspecified severity
CPT/HCPCS: 73630; 73718

== ENCOUNTER 2019-05-02 11:35 | Inpatient (IN) | payer MEDICARE, MEDICAID, SELFPAY ==
[2019-04-20 14:30] VITALS: BMI 53.1
[2019-05-02] VITALS (10 sets, daily range): BP systolic 101–179; BP diastolic 40–91; PULSE 50–84; RESP 13–20; TEMP 36.3–37.2; O2SAT 93–100; BMI 54.5; BMI 51.9
--- NOTE | 2019-05-02 11:52 | RAD_ITS ---
STUDY: X-RAY - LEFT FOOT CLINICAL: Male, 63 years old. DIABETIC INFECTED FOOT TECHNIQUE: 3 view(s) of the foot. COMPARISON: Comparison is made with prior examination dated June 23, 2017. FINDINGS: The patient is status post metatarsal amputation. There is evidence of diffuse soft tissue swelling. Degenerative changes at the talotibial navicular joint. RAD/Foot min 3 Views IMPRESSION: Status post transmetatarsal amputation with diffuse soft tissue swelling. Electronically Signed: Magdiel Stone, at 13:52 EST , Service support ,
--- NOTE | 2019-05-02 11:53 | ED.VIS.GEN ---
History of Present Illness Chief Complaint: Wound Check Detail of Chief Complaint: Hemorrhagic blister plantar surface left foot Informant: Patient Onset: Yesterday Context: Sudden Onset Timing: Continuous Quality: Hemorrhagic blister plantar surface left foot Location: Plantar surface left foot Current Severity: Moderate Maximum Severity: Moderate Worsened by: Diabetic neuropathy Relieved by: Spontaneous rupture Associated Symptoms: No associated constitutional symptoms Narrative: Patient is a 63-year-old male with type 1 diabetes who was seen by Dr. Ruelas. He is seeing on a regular basis the wound center. Visiting nurse recommended he come to the emergency department. His dressing was changed this morning. He is also seen for lymphedema. He denies fever, chills night sweats. Blood sugar this morning was 245. He states normal is 1 30-1 50. He has had elevated blood sugars for the past 3 days. He reports sore throat. He has no other HEENT symptoms. He denies cardiac respiratory symptoms. Denies GI symptoms. He denies urologic symptoms. Prior similar symptoms: Yes Recent Illness/Hospitalization: No - Past Medical History (1) Osteomyelitis of right foot Status: Suspected (2) Lymphedema Status: Chronic (3) Venous insufficiency Status: Chronic (4) Peripheral vascular disease Status: Chronic (5) Chronic ulcer of left foot with fat layer exposed Status: Resolved (6) Obesity Status: Chronic (7) Type 2 diabetes mellitus with diabetic polyneuropathy Status: Chronic (8) Physical deconditioning Status: Chronic Past Medical History - Allergies and Home Meds Allergies/Adverse Reactions: Allergies ciprofloxacin [From Cipro] Allergy (Verified 05/02/19 11:37) Rash he has tolerated oral cipro in the past levofloxacin [From Levaquin] Allergy (Verified 05/02/19 11:37) Hives Penicillins Allergy (Verified 05/02/19 11:37) Hives silver Allergy (Verified 05/02/19 11:37) Rash Skin márquez and itches, rash Prior records reviewed: Yes Surgical History: - - history of b/l great toe amputations, partial left little toe amputation, heel debridements and calcaneus bone biopsy Lives: Alone Smoking Status: Never smoker Alcohol: None Drugs: None - Family History Maternal Family History: Reports: Diabetes, Hypertension Paternal Family History: Reports: - - from being hit by car Review of Systems General: Denies: Chills, Fever, Malaise, Sweats Eyes: Denies: Visual changes - bilaterally, Blurred Vision - bilaterally ENT: Reports: Sore throat, - - Blood from nose. Denies: Bilateral ear pain, Left ear pain, Right ear pain, Rhinorrhea Cardiovascular: Denies: Chest pain, Palpitations Respiratory: Denies: Dyspnea, Cough, Dyspnea on exertion Gastrointestinal: Denies: Abdominal pain, Nausea, Vomiting, Diarrhea, Melena, Hematochezia Genitourinary: Denies: Dysuria, Hematuria, Frequency Musculoskeletal: Denies: Myalgias, Arthralgias, Neck pain, Back pain, Swelling, Extremity Pain Skin: Reports: Rash, Wounds Neurological: Reports: Numbness - Feet secondary to diabetes. Denies: Headache, Weakness Endocrine: Denies: Polyuria Hematologic: Denies: Easy bruising, Easy bleeding Physical Exam Vital Signs/Narrative: Vital Signs Temp Pulse Resp BP Pulse Ox 05/02/19 11:37 99.0 F 79 17 179/71 H 98 Inital Vital Signs reviewed: Yes General: Well nourished, Well developed, Obese, Unkempt, No Acute Distress Head: Normocephalic, Atraumatic Eyes: Perrl, EOMI. Negative for: Pale conjunctiva, Scleral icterus ENT: Moist mucous membranes, No rhinorrhea - Dried blood noted right and left naris, - - Patient has cold sores involving the lip, gingiva and soft palate/uvula Neck: Supple, Nontender, No lymphadenopathy, No JVD Cardiovascular: Regular rate, Regular rhythm, No murmurs, Normal S1, Normal S2 Respiratory: No distress, CTA bilaterally, Chest nontender Abdomen: Soft, Nontender, Nondistended, Normal bowel sounds Rectal: Deferred Back: Nontender, Normal Inspection Extremities: Nontender, Edema - Patient has pitting edema bilaterally. Patient is status post amputation distal left foot. There is a large hemorrhagic blister which spontaneously ruptured with exposure of fat plantar surface left foot. The area is erythematous and warm. There is no palpable pulses. Skin: Normal color, - - Stasis dermatitis right and left lower extremity. Negative for: Cyanosis, Diaphoresis, Jaundice Neurological: Alert, Oriented x3, Cranial nerves II-XII grossly intact, Normal Strength, Normal Sensation. Negative for: Normal Gait Psychological: Normal affect Diagnostic/Tx/Re-eval Chest X-Ray - ED: Read by ED Physician, - - 3 view x-ray of the foot was obtained and reveals soft tissue hyperlucency which may represent the defect or abscess. 05/02/19 11:52 Foot min 3 Views [RAD] Stat Laboratory Results 05/02/19 05/02/19 12:00 12:00 WBC 15.0 H RBC 4.11 L Hgb 10.8 L Hct 35.0 L MCV 85.2 MCH 26.3 L MCHC 30.9 L RDW Std Deviation 47.3 H RDW Coeff of Pool 15.2 H Plt Count 204 MPV 10.3 Immature Gran % (Auto) 0.500 Neut % (Auto) 79.6 H Lymph % (Auto) 5.5 L Ward % (Auto) 10.4 H Eos % (Auto) 3.7 Baso % (Auto) 0.3 Absolute Neuts (auto) 11.9 H Absolute Lymphs (auto) 0.83 Nucleated RBC % 0 Differential Comment Diff Path Review May foll Platelet Estimate ADEQUATE RBC Morphology NORM C+C Rouleaux 1+ ESR 80 H Sodium 137 Potassium 4.5 Chloride 105 Carbon Dioxide 28.0 Anion Gap 4 L BUN 52 H Creatinine 2.18 H Estim Creat Clear Calc 43.71 Est GFR (MDRD) Af Amer 39 L Est GFR (MDRD) Non-Af 33 L BUN/Creatinine Ratio 23.9 H Glucose 222 H Calcium 9.4 Patient has evidence of cellulitis with diabetic foot ulcer. White count is elevated. ESR is elevated. The lateral view of the foot x-ray reveals a area of hyperlucency which may represent the defect versus infection. Since he is seen by podiatry will contact podiatry. With antibiotics. He has allergies to penicillin and quinolones. Will determine what his allergies are to determine appropriate antibiotic. - Medical Decision Making With a blister/diabetic foot ulcer. There is evidence of cellulitis. Since he is not febrile, tachycardic tachypneic lactate was not obtained. CBC was obtained as well as ESR. X-ray was obtained to determine if there is any evidence of osteomyelitis. Basic metabolic panel was obtained to assess renal function as well as blood sugar. Patient was informed that the reason that his throat hurts is secondary to cold sores. He states he has had cold sores in the past. ED Disposition - Plan for ED Patient: Disposition: Acute Care [facility] Diagnosis: Diabetic infection of left foot
[2019-05-02 12:23] LABS: Erythrocyte Sedimentation Rate 80 mm/hr (0-20)
[2019-05-02 12:24] LABS: Absolute Lymphocyte Count 0.83 X10^3/uL (0.83-4.51); Absolute Neutrophil Count 11.9 X10^3/uL (2.0-7.7); Basophil# 0.05 X10^3/uL; Basophil% 0.3 % (0-1); Eosinophil# 0.55 X10^3/uL; Eosinophils% 3.7 % (0-5); Hemoglobin 10.8 g/dL (13.0-16.5); Lymphocyte # 0.83 X10^3/ul (4.0); Lymphocyte % 5.5 % (19-41); Mean Corp Hgb Conc 30.9 g/dL (32-36); Mean Corpuscular Hgb 26.3 pg (27.0-32.0); Mean Corpuscular Volume 85.2 fL (80-94); Mean Platelet Vol. 10.3 fl (6.2-12.0); Monocyte# 1.56 X10^3/uL; Monocyte% 10.4 % (0-10); NRBC Flagged by Analyzer 0 % (0-5); Neutrophil % 79.6 % (47-70); POSITIVE DIFFERENTIAL YES; Platelet Count 204 K/mm3 (150-450); RBC Distribution Width CV 15.2 % (11.6-14.6); RBC Distribution Width SD 47.3 fl (35.1-43.9); Red Blood Count 4.11 M/mm3 (4.6-6.2)
[2019-05-02 12:36] LABS: Differential Indicated SCAN CRITERIA MET
[2019-05-02 12:45] LABS: Anion Gap 4 (5-15); BUN 52 mg/dL (7-18); BUN/Creat Ratio 23.9 RATIO (10-20); Calcium,Total 9.4 mg/dL (8.5-10.1); Chloride 105 mmol/L (98-107); Creatinine, Serum 2.18 mg/dL (0.70-1.30); EST Glomerular Filtration Rate 33 mL/min (>60); Est Glom Filt Rate - Afr Amer 39 mL/min (>60); Estimated Creatinine Clearance 43.71 ml/min; Glucose 222 mg/dL (74-106); Potassium 4.5 mmol/L (3.5-5.1); Sodium Level 137 mmol/L (136-145)
[2019-05-02 13:24] LABS: Platelet Estimate ADEQUATE (ADEQ); Red Cell Morphology NORM C+C NORMAL (NORM C&C); Rouleaux 1+
--- NOTE | 2019-05-02 14:04 | NURSING ---
MED SURG LT DIABETIC INFECTED FOOT ULCER LAYLA
--- NOTE | 2019-05-02 14:16 | PCM.HP.STD ---
History of Present Illness Date of Admission: 05/02/19 Chief Complaint: Burst blister with cellulitis The patient is a 63 year old M with a PMH as below who presents with hemorrhagic blister on his left foot. Yesterday he noticed that he had a blister on the plantar surface of his left foot. He does have a visiting nurse who recommended he come to the ER for evaluation today. He denies any fevers or chills however on presentation to the ER he was found to have a leukocytosis to 15, as well as an elevated creatinine to 2.18. He states that the blister did rupture and there is surrounding redness and warmth, without any streaking going up his leg. 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 He does follow with the wound care regularly. He says that he does have difficulty with the fact that he has neuropathy and no sensation in either of his feet but he states that when he points to his left distal foot secondary to splinter that he could not feel. Past Medical History Past Medical History (Chronic Problems): Chronic Problems Debility (Chronic) Lymphedema (Chronic) Venous insufficiency (Chronic) Peripheral vascular disease (Chronic) Tinea unguium (Chronic) Ulcer of right foot with fat layer exposed (Chronic) Ulcer of right foot with fat layer exposed (Chronic) Ulcer of right lower extremity with fat layer exposed (Chronic) Burn of leg (Chronic) Non-pressure chronic ulcer of other part of left foot with fat layer exposed (Chronic) Skin ulcer of left foot (Chronic) Hammer toe of right foot (Chronic) Skin ulcer of left foot (Chronic) Ulcer of right lower extremity with fat layer exposed (Chronic) Ulcer of left lower extremity with fat layer exposed (Chronic) Walking difficulty due to ankle and foot (Chronic) Obesity (Chronic) Lower extremity edema (Chronic) Type 2 diabetes mellitus with diabetic polyneuropathy (Chronic) Ulcer of right lower extremity with fat layer exposed (Chronic) Ulcer of left lower extremity with fat layer exposed (Chronic) Chronic ulcer of left foot with fat layer exposed (Chronic) Ulcer of right foot with fat layer exposed (Chronic) Physical deconditioning (Chronic) Ulcer of right lower extremity with fat layer exposed (Chronic) Ulcer of right lower extremity with fat layer exposed (Chronic) Chronic ulcer of left foot with fat layer exposed (Chronic) Dehiscence of amputation stump (Chronic) Type 2 diabetes mellitus with foot ulcer (Chronic) Type 2 diabetes mellitus with diabetic polyneuropathy (Chronic) Non-pressure chronic ulcer of right heel and midfoot with fat layer exposed (Chronic) Diabetic ulcer of foot with necrosis of muscle (Chronic) Malnutrition (Chronic) Obesity (Chronic) Lower extremity edema (Chronic) Ulcer of right foot with necrosis of muscle (Chronic) Diabetes mellitus with polyneuropathy (Chronic) Non-pressure chronic ulcer of right heel and midfoot with necrosis of muscle (Chronic) Diabetic foot ulcer (Chronic) Ulcer of right heel and midfoot with fat layer exposed (Chronic) Chronic ulcer of left foot with necrosis of muscle (Chronic) Diabetes mellitus with neuropathy (Chronic) Edema, lower extremity (Chronic) Allergies ciprofloxacin [From Cipro] Allergy (Verified 05/02/19 11:37) Rash he has tolerated oral cipro in the past levofloxacin [From Levaquin] Allergy (Verified 05/02/19 11:37) Hives Penicillins Allergy (Verified 05/02/19 11:37) Hives silver Allergy (Verified 05/02/19 11:37) Rash Skin márquez and itches, rash Home Medications: Ambulatory Orders Medication Instructions Recorded Polyethylene Glycol 3350 [Miralax] 17 gm PO DAILY PRN PRN 07/30/16 Aspirin 325 mg PO DAILY@0800 06/04/17 Furosemide 40 mg PO BID 06/04/17 Insulin NPH Human Isophane 40 units SQ DAILY@0800 06/04/17 [Novolin N] Insulin Regular, Human [Novolin R] 30 unit SQ TID 06/04/17 Lisinopril [Zestril] 10 mg PO DAILY 06/04/17 Metoprolol(XL)Succ [Toprol Xl 50 mg PO DAILY 06/04/17 (Beta Marshall)] Multivitamin [Multiple Vitamins] 1 each PO DAILY 06/04/17 Amlodipine [Norvasc] 5 mg PO DAILY 05/02/19 Ascorbic Acid [Vitamin C] 500 mg PO DAILY@0800 05/02/19 Insulin NPH Human Isophane 30 unit SQ DAILY@1700 05/02/19 [Novolin N] Naproxen 500 mg PO BID PRN 05/02/19 Surgical History: - - history of b/l great toe amputations, partial left little toe amputation, heel debridements and calcaneus bone biopsy Lives: Alone Smoking Status: Never smoker Alcohol: None Drugs: None - *Family History Maternal History Items: Diabetes, Hypertension Paternal History Items: - - from being hit by car Review of Systems Constitutional: Denies: Chills, Fever, Weight Change HEENT: Denies: Head Aches, Sinus Congestion, Sinus Drainage Cardiovascular: Denies: Chest Pain, Palpitations Respiratory: Denies: Cough, Shortness of breath at rest, Sputum production Gastrointestinal: Denies: Abdominal Pain, Nausea, Vomiting Genitourinary: Denies: Dysuria Musculoskeletal: Denies: Joint Pain, Joint Tenderness Skin: Reports: Lesions - Blister on his left plantar foot ruptured. Denies: Rash, Wounds Neurological: Denies: Numbness, Tingling, Focal weakness Psychiatric: Denies: Anxiety, Depression Hematologic/ Lymphatic: Denies: Easy Bruising, Easy Bleeding VTE Information - Inpt Only VTE Present on Admission: No Patient Problems: Active and Suspected Problems Diabetic infection of left foot (Acute) - Physical Exam Vitals/I&O's: Vital Signs Temp Pulse Resp BP Pulse Ox 99.0 F 77 16 155/56 H 98 05/02/19 12:39 05/02/19 12:48 05/02/19 12:48 05/02/19 12:48 05/02/19 12:48 Oxygen Delivery Method Room Air Weight: 460 lb Body Mass Index (BMI) 54.5 Finger Stick Blood Glucose 222 General: Alert, Oriented x3, Cooperative, No apparent distress HEENT: Atraumatic, PERRLA, EOMI, Normocephalic Oral: Dry Mucosa Neck: Supple, No JVD Lungs: Clear to auscultation, Normal air movement, No rhonchi, No wheeze, No rales, Diminished Cardiovascular: Regular rate, Regular Rhythm, Normal S1, Normal S2, No murmurs Abdomen: Soft, Non Tender, Non-Distended, No Hepato-splenomegaly, Obese Extremities: Capillary Refill Less than 3 Seconds, Edema - Nonpitting Skin: Ulcer/ Wound - Ruptured blister on his left plantar foot with surrounding redness and warmth, - - Chronic venous stasis Neurological: Neuro grossly intact, Sensory exam intact to light touch and pain Psych/Mental Status: Normal Affect, Appropriate Laboratory Results 05/02/19 12:00: WBC 15.0 H, RBC 4.11 L, Hgb 10.8 L, Hct 35.0 L, MCV 85.2, MCH 26.3 L, MCHC 30.9 L, RDW Std Deviation 47.3 H, RDW Coeff of Pool 15.2 H, Plt Count 204, MPV 10.3, Immature Gran % (Auto) 0.500, Neut % (Auto) 79.6 H, Lymph % (Auto) 5.5 L, [place] % (Auto) 10.4 H, Eos % (Auto) 3.7, Baso % (Auto) 0.3, Absolute Neuts (auto) 11.9 H, Absolute Lymphs (auto) 0.83, Nucleated RBC % 0, Differential Comment , Diff Path Review May foll, Platelet Estimate ADEQUATE, RBC Morphology NORM C+C, Rouleaux 1+, ESR 80 H 05/02/19 12:00: Sodium 137, Potassium 4.5, Chloride 105, Carbon Dioxide 28.0, Anion Gap 4 L, BUN 52 H, Creatinine 2.18 H, Estim Creat Clear Calc 43.71, Est GFR (MDRD) Af Amer 39 L, Est GFR (MDRD) Non-Af 33 L, BUN/Creatinine Ratio 23.9 H, Glucose 222 H, Calcium 9.4 Current Medications Clindamycin Phosphate 600 mg/ (Dextrose) 54 mls @ 100 mls/hr IV X1 ONE Stop: 05/02/19 14:21 Vancomycin HCl 2,000 mg/ (Sodium Chloride) 540 mls @ 250 mls/hr IV X1 ONE Stop: 05/02/19 16:39 Assessment/Plan All Active Problems Trauma of toe of right foot (Acute) Diabetic infection of left foot (Acute) Chronic ulcer of left foot with fat layer exposed (Resolved) Blister of foot, right (Acute) Infection of right foot (Resolved) Blister (nonthermal), right lesser toe(s), initial encounter (Acute) Skin ulcer of left foot including toes, limited to breakdown of skin (Acute) Blister of left leg (Acute) Blister of right foot (Acute) Ulcer of left lower extremity with fat layer exposed (Resolved) Cellulitis of right lower extremity (Resolved) Septic joint (Acute) Non-pressure chronic ulcer of other part of left foot limited to breakdown of skin (Resolved) Cellulitis of right foot (Resolved) Infection of right foot (Resolved) Neuropathic ulcer of right heel (Acute) Cellulitis of right heel (Acute) 1. Type I diabetic/diabetic foot wound with a ruptured blister -Wound culture was obtained in the ER -He was started on clindamycin and vancomycin and will transition him to cefepime and vancomycin -Previous cultures with Acinetobacter, corynebacterium, staph aureus, Enterobacter, and Klebsiella, may need to consult infectious disease organisms are demonstrated on repeat cultures -Since he is being seen fairly regularly by podiatry at the wound care center, will defer the necessity of an MRI pending their evaluation of his wound -We will place him on a diet and continue with his home insulin medications, Accu-Cheks AC at bedtime as well as sliding scale insulin 2. Chronic lymphedema/JOANNA -We will hold his Lasix for now and provide him with some fluid given his JOANNA -Creatinine appears to be around 1.5, today on admission to 2.18 3. HTN/morbid obesity -discussed lifestyle monitor -We will place him on a calorie controlled diet -Continue with Norvasc, will hold his lisinopril given renal function, and continue with metoprolol DVT: Heparin Code Visit Inpatient E&M: 59341 Init Hosp L3
--- NOTE | 2019-05-02 15:23 | CON.PCM_ITS ---
Reason for Consult Date of Consultation: 05/02/19 Reason for Consultation: Left foot ulceration infection History of Present Illness: The patient is a 63 year old male w/ multiple medical problems including diabetes presented to ER today for left foot infection. He relates he developed a blister/wound to the left foot over weekend. Home nurse was out and sent patient to ER. Patient was admitted for further evaluation and management. WBC elevated, ESR at 80mm/hr. Patient afebrile. No complaints of fever, chills, nausea or vomiting. Past Medical History Past Medical History (Chronic Problems): Chronic Problems Debility (Chronic) Lymphedema (Chronic) Venous insufficiency (Chronic) Peripheral vascular disease (Chronic) Tinea unguium (Chronic) Ulcer of right foot with fat layer exposed (Chronic) Ulcer of right foot with fat layer exposed (Chronic) Ulcer of right lower extremity with fat layer exposed (Chronic) Burn of leg (Chronic) Non-pressure chronic ulcer of other part of left foot with fat layer exposed (Chronic) Skin ulcer of left foot (Chronic) Hammer toe of right foot (Chronic) Skin ulcer of left foot (Chronic) Ulcer of right lower extremity with fat layer exposed (Chronic) Ulcer of left lower extremity with fat layer exposed (Chronic) Walking difficulty due to ankle and foot (Chronic) Obesity (Chronic) Lower extremity edema (Chronic) Type 2 diabetes mellitus with diabetic polyneuropathy (Chronic) Ulcer of right lower extremity with fat layer exposed (Chronic) Ulcer of left lower extremity with fat layer exposed (Chronic) Chronic ulcer of left foot with fat layer exposed (Chronic) Ulcer of right foot with fat layer exposed (Chronic) Physical deconditioning (Chronic) Ulcer of right lower extremity with fat layer exposed (Chronic) Ulcer of right lower extremity with fat layer exposed (Chronic) Chronic ulcer of left foot with fat layer exposed (Chronic) Dehiscence of amputation stump (Chronic) Type 2 diabetes mellitus with foot ulcer (Chronic) Type 2 diabetes mellitus with diabetic polyneuropathy (Chronic) Non-pressure chronic ulcer of right heel and midfoot with fat layer exposed (Chronic) Diabetic ulcer of foot with necrosis of muscle (Chronic) Malnutrition (Chronic) Obesity (Chronic) Lower extremity edema (Chronic) Ulcer of right foot with necrosis of muscle (Chronic) Diabetes mellitus with polyneuropathy (Chronic) Non-pressure chronic ulcer of right heel and midfoot with necrosis of muscle (Chronic) Diabetic foot ulcer (Chronic) Ulcer of right heel and midfoot with fat layer exposed (Chronic) Chronic ulcer of left foot with necrosis of muscle (Chronic) Diabetes mellitus with neuropathy (Chronic) Edema, lower extremity (Chronic) Allergies ciprofloxacin [From Cipro] Allergy (Verified 05/02/19 11:37) Rash he has tolerated oral cipro in the past levofloxacin [From Levaquin] Allergy (Verified 05/02/19 11:37) Hives Penicillins Allergy (Verified 05/02/19 11:37) Hives silver Allergy (Verified 05/02/19 11:37) Rash Skin márquez and itches, rash Home Medications: Ambulatory Orders Medication Instructions Recorded Polyethylene Glycol 3350 [Miralax] 17 gm PO DAILY PRN PRN 07/30/16 Aspirin 325 mg PO DAILY@0800 06/04/17 Furosemide 40 mg PO BID 06/04/17 Insulin NPH Human Isophane 40 units SQ DAILY@0800 06/04/17 [Novolin N] Insulin Regular, Human [Novolin R] 30 unit SQ TID 06/04/17 Lisinopril [Zestril] 10 mg PO DAILY 06/04/17 Metoprolol(XL)Succ [Toprol Xl 50 mg PO DAILY 06/04/17 (Beta Marshall)] Multivitamin [Multiple Vitamins] 1 each PO DAILY 06/04/17 Amlodipine [Norvasc] 5 mg PO DAILY 05/02/19 Ascorbic Acid [Vitamin C] 500 mg PO DAILY@0800 05/02/19 Insulin NPH Human Isophane 30 unit SQ DAILY@1700 05/02/19 [Novolin N] Naproxen 500 mg PO BID PRN 05/02/19 Surgical History: - - history of b/l great toe amputations, partial left little toe amputation, heel debridements and calcaneus bone biopsy Lives: Alone Smoking Status: Never smoker Tobacco Use: Non-smoker Alcohol: None Drugs: None - *Family History Maternal History Items: Diabetes, Hypertension Paternal History Items: - - from being hit by car Review of Systems Constitutional: Denies: Chills, Fever Gastrointestinal: Denies: Nausea, Vomiting Skin: Reports: Wounds Patient Problems: Active and Suspected Problems Diabetic infection of left foot (Acute) - Physical Exam Vitals/I&O's: Vital Signs Temp Pulse Resp BP Pulse Ox 98.8 F 84 16 160/91 H 97 05/02/19 14:47 05/02/19 14:47 05/02/19 14:47 05/02/19 14:47 05/02/19 14:47 Oxygen Delivery Method Room Air Weight: 198.7 kg Body Mass Index (BMI) 51.9 Finger Stick Blood Glucose 222 General: Alert, Oriented x3, Cooperative, No apparent distress Extremities: Capillary Refill Less than 3 Seconds, No Calf Tenderness, - - Abscess, cellulitis left foot with necrosis to the plantar arch, there is bulla formation with some drainage c/w infection, there is maloder present as well. There is diffuse lower extremity edema, which is chronic in nature. There is no POP or pain on ROM to the left foot/ankle. TMA left foot. Sensation significantly diminished/abscess c/w diabetic neuropathy. Overall vascular status intact to the left foot/ankle. Psych/Mental Status: Normal Affect, Appropriate, Alert and oriented to time, place, person, mood and affect Laboratory Results 05/02/19 12:00: WBC 15.0 H, RBC 4.11 L, Hgb 10.8 L, Hct 35.0 L, MCV 85.2, MCH 26.3 L, MCHC 30.9 L, RDW Std Deviation 47.3 H, RDW Coeff of Pool 15.2 H, Plt Count 204, MPV 10.3, Immature Gran % (Auto) 0.500, Neut % (Auto) 79.6 H, Lymph % (Auto) 5.5 L, [place] % (Auto) 10.4 H, Eos % (Auto) 3.7, Baso % (Auto) 0.3, Absolu te Neuts (auto) 11.9 H, Absolute Lymphs (auto) 0.83, Nucleated RBC % 0, Differential Comment , Diff Path Review May foll, Platelet Estimate ADEQUATE, RBC Morphology NORM C+C, Rouleaux 1+, ESR 80 H 05/02/19 12:00: Sodium 137, Potassium 4.5, Chloride 105, Carbon Dioxide 28.0, Anion Gap 4 L, BUN 52 H, Creatinine 2.18 H, Estim Creat Clear Calc 43.71, Est GFR (MDRD) Af Amer 39 L, Est GFR (MDRD) Non-Af 33 L, BUN/Creatinine Ratio 23.9 H , Glucose 222 H, Calcium 9.4 Current Medications Vancomycin HCl 2,000 mg/ (Sodium Chloride) 540 mls @ 250 mls/hr IV X1 ONE Stop: 05/02/19 16:39 Last Admin: 05/02/19 15:01 Dose: 250 mls/hr Documented by: Sodium Chloride () 250 mls @ 15 mls/hr IV .[id number] PRN PRN Reason: Saline Flush Sodium Chloride () 250 mls @ 15 mls/hr IV .[id number] PRN PRN Reason: Additional IVPB Infusion Sodium Chloride () 10 - 40 ml IV UD PRN PRN Reason: SALINE FLUSH Assessment/Plan All Active Problems Trauma of toe of right foot (Acute) Diabetic infection of left foot (Acute) Chronic ulcer of left foot with fat layer exposed (Resolved) Blister of foot, right (Acute) Infection of right foot (Resolved) Blister (nonthermal), right lesser toe(s), initial encounter (Acute) Skin ulcer of left foot including toes, limited to breakdown of skin (Acute) Blister of left leg (Acute) Blister of right foot (Acute) Ulcer of left lower extremity with fat layer exposed (Resolved) Cellulitis of right lower extremity (Resolved) Septic joint (Acute) Non-pressure chronic ulcer of other part of left foot limited to breakdown of skin (Resolved) Cellulitis of right foot (Resolved) Infection of right foot (Resolved) Neuropathic ulcer of right heel (Acute) Cellulitis of right heel (Acute) Ulcer left foot with necrosis - uncertain depth Abscess left foot w/ cellulitis Diabetes w/ neuropathy TMA left foot Reviewed diagnostic data. There is significant maloder, necrosis and infection, appears deep plantar space abscess infection. WBC elevated. Recommend I+D debridement of the foot. This was discussed with patient in detail. He agreed. We will plan to proceed with this as soon as we can get a room in the OR - which is pending at this time. Diabetes and further medical management per medicine team.
--- NOTE | 2019-05-02 15:48 | PCM.RX.CS ---
Consult Pharmacy has been consulted to manage selected antiobiotic: Vancomycin Type of Consult: New start Suspected Infection: Skin/Soft tissue Prior Doses of Antibiotics Received/Current Regimen: 1 X 2 GRAM DOSE IN ED AT 1500 Labs: Sodium 137 mmol/L (136-145) 05/02/19 12:00 Potassium 4.5 mmol/L (3.5-5.1) 05/02/19 12:00 Chloride 105 mmol/L (98-107) 05/02/19 12:00 Carbon Dioxide 28.0 mmol/L (21.0-32.0) 05/02/19 12:00 Anion Gap 4 (5-15) L 05/02/19 12:00 BUN 52 mg/dL (7-18) H 05/02/19 12:00 Creatinine 2.18 mg/dL (0.70-1.30) H 05/02/19 12:00 Est GFR (MDRD) Af Amer 39 mL/min (>60) L 05/02/19 12:00 Est GFR (MDRD) Non-Af 33 mL/min (>60) L 05/02/19 12:00 BUN/Creatinine Ratio 23.9 RATIO (10-20) H 05/02/19 12:00 Glucose 222 mg/dL (74-106) H 05/02/19 12:00 VANCOMYCIN TROUGH TO BE DRAWN PRIOR TO 4TH DOSE = 05/04/19 @ 0230 Weight used for dosin.7 kg Estimated Creatinine Clearance: 43.7 Goal Trough: 15-20 mcg/mL - VANCOMYCIN 1 GRAM IVPB Q12H. TROUGH LEVEL ORDERED PRIOR TO 4TH DOSE = 05/04/19 @ 0230 Pharmacy Plan for Drug Dosing: Pharmacy Service will continue to monitor and adjust dosing as required.
--- NOTE | 2019-05-02 15:55 | ABS_PTH ---
PATIENT: [place] IV[place] LOC: [facility] U#:[id number] AGE/SX: 63/M ROOM: IN322 RE05/02/[address]: Dr. Loy Verma MD : [id number] BED: 1 DIS: 05/05/2019 SPEC #: [id number] RECD: 05/03/19 08:01 STATUS: DON REHaley #: [id number] RENUKA: 05/02/19 15:[address]: Dwayne Koch DEPT: SURGICAL PATHOLOGY RECD BY: Thanh Agee ENTERED: 05/03/19 11:07 SP TYPE: Abscess OTHR DR: MD Dr. Loy Sanford MD Dr. Roger O Snyder, MD Tissues: Left foot Procedures: Surgery Specimen Level IV Comments: @ Specimen number changed from [id number] to [id number] @ on 05/03/19 at 1515 by RGOOD. HEADER OPERATION: I & D debridement foot PRE-OP DIAGNOSIS: Abscess left foot TISSUE SUBMITTED: Infected soft tissue left foot MICROSCOPIC DIAGNOSIS Skin and soft tissue of left foot, biopsy: Ulceration with associated acute and chronic inflammation and granulation. AM:enrique 05/04/19 MICROSCOPIC DESCRIPTION Slides are reviewed. GROSS DESCRIPTION Received in fixative is one container labeled with the patient's name and designated infected soft tissue left foot. The specimen consists of two pieces of alva-white skin measuring in aggregate 6 x 4 x 0.3 cm. Four smaller pieces of soft tissue are also noted measuring in aggregate 2.5 x 2.5 x 0.2 cm. The skin surface shows an extensive area of ulceration. The specimen is totally submitted in one cassette. / SJ:enrique 05/03/19 TC:2 [facility]: [id number]
[2019-05-02 16:30] LABS: Bedside Glucose 166 mg/dL (70-110)
--- NOTE | 2019-05-02 18:47 | OP.PCM_ITS ---
Report of Operation Date of Procedure: 05/02/19 Pre-Operative Diagnosis: Abscess, ulceration down to fascia left foot Post-Operative Diagnosis: Same Surgery/Procedure Performed:: Left foot ulcer infection excisional debridement left foot supervisor precision optical elements: None Type of Anesthesia:: Local MAC Specimen's removed: Culture abscess infection left foot sent to microbiology. Debrided soft tissue from left foot sent to pathology Estimated Blood Loss (mL): 40mL Description of Procedure: Indications: This is a 63 year old male w/ multiple medical problems present to ER for left foot infection. Due to the findings with significant cellulitis, maloder, abscess and ulceration debridement of all nonviable, infected, necrotic soft tissue and bone. Reviewed procedure with him in great detail. Advised patient of possible benefits vs risks, goals, expectations and estimated healing time. Advised patient the risks include but not limited to further infection, worsening infection, pain, swelling, blood loss, deformity, need for further surgery, and also loss of limb or loss of life. Patient expressed understanding and agreement. All of his questions were answered. The consent form was reviewed with him and he freely signed it. No guarantees were given nor implied. Operative procedure: The patient was brought back to the operating room and was placed on the operating room table in the supine position. He was secured to the operating table with a safety belt around his waist. Patient was already on IV antibiotics. A well padded pneumatic tourniquet was applied around the left ankle. The patient received a left ankle block pre op per the anesthesia service. Patient's left foot was scrubbed, prepped and draped in the usual aseptic fashion. A timeout was performed, the patient was properly identified and the surgical plan confirmed. The foot was exsanguinated using an Esmarch bandage. Further attention was directed to the foot where there was significant abscess and necrotic infected nonviable soft tissue to the plantar arch of the left foot. There was cellulitis, edema and drainage all consistent with infection. At this time all nonviable, infected, necrotic soft tissue was debrided from plantar left foot, this extended down to the fascial layer. The abscess was excised in this process. A deep culture was obtained and sent to microbiology. The debrided tissue was sent to pathology. This was debrided down to healthy, viable, bleeding soft tissue. The pneumatic tourniquet was deflated at 2 minutes at this was acting as a venous tourniquet. Post debridement the ulceration measures 6.5cm x 9.5cm and down to fascia layer (0.6cm). The site was flushed out with copious amounts of normal saline solution. A dressing was applied which consisted of Betadine soaked adaptic, 4x4 gauze, abd pads, kerlix and marlo bandages. The patient tolerated the procedure well and the anesthesia well with no complication. Patient was transported from the operating room to the recovery room with vital signs stable and in good condition. No weightbearing left foot and keep left foot elevated at all times. Patient will be followed as inpatient. Grafts/Implants Used: None - Complications None
[2019-05-02 20:18] LABS: M R Staph aureus DNA By PCR Negative (Negative); Probe Check PASS; Specimen Processing Control PASS; Staph aureus DNA By PCR POSITIVE (Negative)
[2019-05-02] MEDS: Naproxen 250 MG Tablet 500 MG PO (21:03)
[2019-05-02 21:11] LABS: Bedside Glucose 158 mg/dL (70-110)
[2019-05-02] MEDS: Heparin Injection (Vial) 5,000 UNIT/ML VIAL 5000 UNIT SC (21:51)
[2019-05-02] MEDS: Nystatin Powder 15gm Bottle 1 APPLIC TOPICAL (21:51)
[2019-05-02] MEDS: Insulin Lispro 100 UNIT/ML INSULN.PEN SC (21:52)
[2019-05-02] MEDS: 0.9% Normal Saline 1,000 ML 100 ML IV (21:53)
[2019-05-03] VITALS (8 sets, daily range): BP systolic 120–160; BP diastolic 40–57; PULSE 60–77; RESP 16–20; TEMP 36.8–37.6; O2SAT 93–97
[2019-05-03] MEDS: oxyCODONE 5 MG Tablet PO (00:43)
[2019-05-03] MEDS: Vancomycin IV 1,000 MG/200 ML BAG 200 MG IV ×2 (02:04→15:29)
[2019-05-03] MEDS: 0.9% Normal Saline 1,000 ML 100 ML IV ×2 (02:04→12:38)
[2019-05-03 05:49] LABS: Absolute Neutrophil Count 4.9 X10^3/uL (2.0-7.7); Basophil# 0.03 X10^3/uL; Basophil% 0.4 % (0-1); Eosinophil# 0.41 X10^3/uL; Hematocrit 29.7 % (40-54); Hemoglobin 9.1 g/dL (13.0-16.5); Lymphocyte % 8.8 % (19-41); Mean Corp Hgb Conc 30.6 g/dL (32-36); Mean Corpuscular Hgb 26.2 pg (27.0-32.0); Mean Corpuscular Volume 85.6 fL (80-94); Mean Platelet Vol. 10.5 fl (6.2-12.0); Monocyte# 0.89 X10^3/uL; NRBC Flagged by Analyzer 0 % (0-5); Neutrophil % 71.5 % (47-70); POSITIVE DIFFERENTIAL YES; Platelet Count 134 K/mm3 (150-450); RBC Distribution Width CV 15.2 % (11.6-14.6); RBC Distribution Width SD 47.4 fl (35.1-43.9); Red Blood Count 3.47 M/mm3 (4.6-6.2); White Blood Count 6.9 K/mm3 (4.4-11.0)
[2019-05-03 05:54] LABS: Differential Indicated SCAN CRITERIA MET
[2019-05-03 06:09] LABS: Anion Gap 5 (5-15); BUN 44 mg/dL (7-18); BUN/Creat Ratio 23.7 RATIO (10-20); Calcium,Total 8.4 mg/dL (8.5-10.1); Chloride 106 mmol/L (98-107); Creatinine, Serum 1.86 mg/dL (0.70-1.30); EST Glomerular Filtration Rate 39 mL/min (>60); Est Glom Filt Rate - Afr Amer 47 mL/min (>60); Estimated Creatinine Clearance 51.23 ml/min; Glucose 200 mg/dL (74-106); Potassium 4.4 mmol/L (3.5-5.1); Sodium Level 137 mmol/L (136-145)
[2019-05-03 06:18] LABS: Differential Comment SCANNED
[2019-05-03] MEDS: Heparin Injection (Vial) 5,000 UNIT/ML VIAL 5000 UNIT SC ×3 (06:18→22:05)
[2019-05-03 07:45] LABS: Bedside Glucose 193 mg/dL (70-110)
--- NOTE | 2019-05-03 07:46 | PN_ITS ---
Patient Problems: Active and Suspected Problems Diabetic infection of left foot (Acute) Reason for Visit: Diabetic foot and leg infection. Cellulitis with bilateral feet ulcer Objective: One-time T-max 99.6 Fahrenheit possible normal variation or low-grade fever Heart rate in 70s. Blood pressure is stable, slightly elevated Vitals/I&O's: Vital Signs Temp Pulse Resp BP Pulse Ox 98.4 F 65 18 120/51 L 93 05/03/19 06:23 05/03/19 06:23 05/03/19 06:23 05/03/19 06:23 05/03/19 06:23 Oxygen Delivery Method Room Air Weight: 438 lb 0.936 oz Body Mass Index (BMI) 51.9 Finger Stick Blood Glucose 222 Intake and Output for Last 24 Hours 05/01/19 05/02/19 05/03/19 23:59 23:59 23:59 Intake Total 694 / 1234 1610.00 / 1610.00 Output Total 825 / 825 Balance 694 / 834 785.00 / 785.00 General: Alert, Oriented x3, Cooperative HEENT: Atraumatic, PERRLA, EOMI, Normocephalic Neck: Supple, No JVD, Negative Carotid Bruits Lungs: Clear to auscultation, No rhonchi, No wheeze, No rales, Diminished - Air entry diminished bilaterally Cardiovascular: Regular rate, Regular Rhythm, Normal S1, Normal S2, No murmurs Abdomen: Bowel Sounds Present, Soft, Non Tender, Non-Distended Extremities: Capillary Refill Less than 3 Seconds, Edema Skin: Ulcer/ Wound - Multiple ulcer in bilateral lower extremities. 1. Right heel with slough and thickened margin.2 Right second toe ulcer, dry, thickened skin with multiple superficial bruises/skin erosions on right leg. 3 Left leg, transmetatarsal amputation. Midfoot has large ulcer, granulation tissue on floor with some slough Musculoskeletal: Arthritic Changes, Muscle Wasting, Tenderness - Bilateral feet Neurological: Cranial nerves II-XII grossly intact, - - Peripheral neuropathy in both lower legs with decreased sensation Decreased muscle strength in lower extremities Psych/Mental Status: Normal Affect, Appropriate Laboratory Results 05/02/19 12:00: WBC 15.0 H, RBC 4.11 L, Hgb 10.8 L, Hct 35.0 L, MCV 85.2, MCH 26.3 L, MCHC 30.9 L, RDW Std Deviation 47.3 H, RDW Coeff of Pool 15.2 H, Plt Count 204, MPV 10.3, Immature Gran % (Auto) 0.500, Neut % (Auto) 79.6 H, Lymph % (Auto) 5.5 L, Lares % (Auto) 10.4 H, Eos % (Auto) 3.7, Baso % (Auto) 0.3, Absolute Neuts (auto) 11.9 H, Absolute Lymphs (auto) 0.83, Nucleated RBC % 0, Differential Comment , Diff Path Review July, Platelet Estimate ADEQUATE, RBC Morphology NORM C+C, Rouleaux 1+, ESR 80 H 05/02/19 12:00: Sodium 137, Potassium 4.5, Chloride 105, Carbon Dioxide 28.0, Anion Gap 4 L, BUN 52 H, Creatinine 2.18 H, Estim Creat Clear Calc 43.71, Est GFR (MDRD) Af Amer 39 L, Est GFR (MDRD) Non-Af 33 L, BUN/Creatinine Ratio 23.9 H , Glucose 222 H, Calcium 9.4 05/02/19 15:10: S.aureus Protein A PCR POSITIVE H, MRSA (PCR) Negative 05/02/19 15:57: POC Glucose 166 H 05/02/19 21:03: POC Glucose 158 H 05/03/19 05:30: WBC 6.9, RBC 3.47 L, Hgb 9.1 L, Hct 29.7 L, MCV 85.6, MCH 26.2 L , MCHC 30.6 L, RDW Std Deviation 47.4 H, RDW Coeff of Pool 15.2 H, Plt Count 134 L, MPV 10.5, Immature Gran % (Auto) 0.300, Neut % (Auto) 71.5 H, Lymph % (Auto) 8.8 L, Lares % (Auto) 13.0 H, Eos % (Auto) 6.0 H, Baso % (Auto) 0.4, Absolute Neuts (auto) 4.9, Absolute Lymphs (auto) 0.60 L, Nucleated RBC % 0, Differential Comment SCANNED 05/03/19 05:30: Sodium 137, Potassium 4.4, Chloride 106, Carbon Dioxide 26.0, Anion Gap 5, BUN 44 H, Creatinine 1.86 H, Estim Creat Clear Calc 51.23, Est GFR (MDRD) Af Amer 47 L, Est GFR (MDRD) Non-Af 39 L, BUN/Creatinine Ratio 23.7 H, Glucose 200 H, Calcium 8.4 L 05/03/19 07:41: POC Glucose 193 H Current Medications Acetaminophen (Tylenol) 650 mg PO Q6H PRN PRN PRN Reason: Pain Score 1-10/Temp > 100.7 F Amlodipine Besylate (Norvasc) 5 mg PO DAILY [facility] Ascorbic Acid (Vitamin C) 500 mg PO DAILY@0800 [facility] Aspirin (Aspirin) 325 mg PO DAILY@0800 [facility] Glucagon () 1 mg IM .X1 PRN PRN Reason: Hypoglycemia Heparin Sodium (Porcine) (Heparin Na) 5,000 unit SC Q8 [facility] Last Admin: 05/03/19 06:18 Dose: 5,000 unit Documented by: Sodium Chloride () 1,000 mls @ 100 mls/hr IV .Q10H [facility] Last Infusion: 05/03/19 03:04 Dose: 100 mls/hr Documented by: Cefepime HCl 2 gm/ Sodium (Chloride) 100 mls @ 200 mls/hr IV Q24 [facility] Last Infusion: 05/02/19 19:02 Dose: Infused Documented by: Vancomycin IV Pharmacy to Dose (1 ea/ Sodium Chloride) 500 mls @ 250 mls/hr IV PRN PRN; Protocol PRN Reason: Rx to Dose Dextrose (Dextrose 10%-Water) 250 mls @ 999 mls/hr IV .Q16M PRN; Protocol PRN Reason: HYPOGLYCEMIA Vancomycin HCl (Vancomycin) 1,000 mg in 200 mls @ 200 mls/hr IV Q12H [facility] Last Infusion: 05/03/19 03:04 Dose: Infused Documented by: Insulin Glargine (Lantus (Bkc)) 40 units SC 1100,2200 [facility] Last Admin: 05/02/19 21:58 Dose: Not Given Documented by: Insulin Human Lispro (Humalog Kwikpen (Bkc)) 0 unit SC ACHS [facility]; Protocol Last Admin: 05/02/19 21:52 Dose: 2 u Documented by: Insulin Human Lispro (Humalog Kwikpen (Bkc)) 20 unit SC TIDAC [facility] Melatonin (Melatonin) 3 mg PO QHS PRN PRN PRN Reason: INSOMNIA Metoprolol Succinate (Toprol Xl (Beta Marshall)) 50 mg PO DAILY [facility] Naproxen (Naprosyn) 500 mg PO BID PRN PRN PRN Reason: Pain Score 1-10/10 or Fever Last Admin: 05/02/19 21:03 Dose: 500 mg Documented by: Nutritional Formula (Lactose Free) (Glucerna Shake) 120 ml PO 4X/DAY JIM Nystatin (Mycostatin Powder) 1 applic TOPICAL BID JIM; Protocol Last Admin: 05/02/19 21:51 Dose: 1 applicatio Documented by: Ondansetron HCl (Zofran) 4 mg IV Q8H PRN PRN PRN Reason: NAUSEA/VOMITING Oxycodone HCl (Oxyir) 5 mg PO Q6H PRN PRN PRN Reason: Pain Score 6-10/10 Last Admin: 05/03/19 00:43 Dose: 5 mg Documented by: Polyethylene Glycol (Miralax) 17 gm PO DAILY PRN PRN PRN Reason: Constipation Sodium Chloride () 10 - 40 ml IV UD PRN PRN Reason: SALINE FLUSH STROKE Vital Signs/Narrative: Vital Signs Temp Pulse Resp BP Pulse Ox 05/03/19 06:23 98.4 F 65 18 120/51 L 93 Medical Necessity - Tobacco Use Smoking Status: Never smoker Tobacco Use: Non-smoker Assessment/Plan All Active Problems Trauma of toe of right foot (Acute) Diabetic infection of left foot (Acute) Chronic ulcer of left foot with fat layer exposed (Resolved) Blister of foot, right (Acute) Infection of right foot (Resolved) Blister (nonthermal), right lesser toe(s), initial encounter (Acute) Skin ulcer of left foot including toes, limited to breakdown of skin (Acute) Blister of left leg (Acute) Blister of right foot (Acute) Ulcer of left lower extremity with fat layer exposed (Resolved) Cellulitis of right lower extremity (Resolved) Septic joint (Acute) Non-pressure chronic ulcer of other part of left foot limited to breakdown of skin (Resolved) Cellulitis of right foot (Resolved) Infection of right foot (Resolved) Neuropathic ulcer of right heel (Acute) Cellulitis of right heel (Acute) This is a 62-year-old gentleman with multiple comorbidities was admitted with hemorrhagic blister on his left foot, noticed 1 day before admission. Denies fever or chills. Initial blood work shows leukocytosis 15,000 with elevated creatinine 2.18. He was found to have multiple bilateral feet ulcer. 1. Type 2 diabetic, bilateral feet and leg ulcers complicated with abscess and cellulitis with a ruptured blister with left transmetatarsal amputation with chronic peripheral neuropathy WITH PAD * Preliminary wound culture obtained shows a Streptococcus group A, gram- negative rods and Staphylococcus species: Full culture report pending. Empirically on IV vancomycin and cefepime. Previous wound cultures grew Acinetobacter, corynebacterium, MSSA, Enterobacter, and Klebsiella. Consult ID Patient had abscess and infection of left foot ulcer with excisional debridement of left foot. Podiatry consult reviewed Accu-Cheks are between 150?190. We will titrate up the insulin. Lower extremity arterial Doppler in July 2016 reported as left BAO, supranormal suggestive of arterial calcification/arteriosclerosis. Right BAO normal. Order 2D echo as the patient has lower extremity edema and is on diuretics. BNP ordered. A1c for tomorrow a.m. 2. JOANNA - -Baseline creatinine appears to be around 1.5, was admitted with BUN/creatinine 52/2.18. Gradually improving. 3. Hypertension: Blood pressure is slightly elevated: Titrate up the antihypertensive medication. -Continue with Norvasc, metoprolol and hold lisinopril secondary to acute kidney injury 4. Bilateral lower extremity lymphedema and morbid obesity -discussed lifestyle monitor Discontinue if platelet count drops less than 50,000 or hemoglobin less than 8 g% DVT prophylaxis: On heparin 5000 units subcu every 8 hourly Total time of the visit including total time spent in counseling or coordination of care, (more than 50% of the total time, spent in obtaining medical information from nurses and other ancillary care providers), discussion with the nursing staff, hog driver and senior sustainability consultant, review of labs and imaging is 35 minutes Code Visit Inpatient E&M: 24387 [facility] L3
--- NOTE | 2019-05-03 08:50 | PN_ITS ---
Patient Problems: Active and Suspected Problems Diabetic infection of left foot (Acute) Subjective: Patient was seen today for follow up on left foot, as well as right foot/leg ulcerations. He relates to no pain at this time, no new complaints. WBC now normal. Patient afebrile. - Physical Exam Vitals/I&O's: Vital Signs Temp Pulse Resp BP Pulse Ox 99.6 F H 77 18 157/57 H 95 05/03/19 08:38 05/03/19 08:38 05/03/19 08:38 05/03/19 08:38 05/03/19 08:38 Oxygen Delivery Method Room Air Weight: 198.7 kg Body Mass Index (BMI) 51.9 Finger Stick Blood Glucose 222 Intake and Output for Last 24 Hours 05/01/19 05/02/19 05/03/19 23:59 23:59 23:59 Intake Total 694 / 1234 1610.00 / 1610.00 Output Total 825 / 825 Balance 694 / 834 785.00 / 785.00 General: Alert, Oriented x3, Cooperative, No apparent distress Extremities: Capillary Refill Less than 3 Seconds, No Calf Tenderness, - - s/p debridement left plantar arch ulceration - tissues healthy and viable with intact margins, and much improvement since yesterday - granular bleeding tissue, no maloder, no fluctuance, no crepitus, no remaining visible abscess to the left foot. The ulcer plantar left foot is down to subcutaneous tissue layer. Two small blisters to the anterior medial left leg and smaller wound present down to subcutaneous tissue layer. Right foot with dorsal 2nd toe ulceration as well as heel ulceration and multiple small leg ulcerations down to subcutaneous tissue, granular bases, intact viable margins, no evidence of infection. Microbiology Past 72 Hours 05/02/19 18:50 Wound Abcess - Aerobic & Anaerobic Swabs Gram Stain - Final Laboratory Results 05/02/19 12:00: WBC 15.0 H, RBC 4.11 L, Hgb 10.8 L, Hct 35.0 L, MCV 85.2, MCH 26.3 L, MCHC 30.9 L, RDW Std Deviation 47.3 H, RDW Coeff of Pool 15.2 H, Plt Count 204, MPV 10.3, Immature Gran % (Auto) 0.500, Neut % (Auto) 79.6 H, Lymph % (Auto) 5.5 L, Edgar % (Auto) 10.4 H, Eos % (Auto) 3.7, Baso % (Auto) 0.3, Absolute Neuts (auto) 11.9 H, Absolute Lymphs (auto) 0.83, Nucleated RBC % 0, Differential Comment , Diff Path Review July, Platelet Estimate ADEQUATE, RBC Morphology NORM C+C, Rouleaux 1+, ESR 80 H 05/02/19 12:00: Sodium 137, Potassium 4.5, Chloride 105, Carbon Dioxide 28.0, A nion Gap 4 L, BUN 52 H, Creatinine 2.18 H, Estim Creat Clear Calc 43.71, Est GFR (MDRD) Af Amer 39 L, Est GFR (MDRD) Non-Af 33 L, BUN/Creatinine Ratio 23.9 H, Glucose 222 H, Calcium 9.4 05/02/19 15:10: S.aureus Protein A PCR POSITIVE H, MRSA (PCR) Negative 05/02/19 15:57: POC Glucose 166 H 05/02/19 21:03: POC Glucose 158 H 05/03/19 05:30: WBC 6.9, RBC 3.47 L, Hgb 9.1 L, Hct 29.7 L, MCV 85.6, MCH 26.2 L , MCHC 30.6 L, RDW Std Deviation 47.4 H, RDW Coeff of Pool 15.2 H, Plt Count 134 L, MPV 10.5, Immature Gran % (Auto) 0.300, Neut % (Auto) 71.5 H, Lymph % (Auto) 8.8 L, Edgar % (Auto) 13.0 H, Eos % (Auto) 6.0 H, Baso % (Auto) 0.4, Absolute Neuts (auto) 4.9, Absolute Lymphs (auto) 0.60 L, Nucleated RBC % 0, Differential Comment SCANNED 05/03/19 05:30: Sodium 137, Potassium 4.4, Chloride 106, Carbon Dioxide 26.0, Anion Gap 5, BUN 44 H, Creatinine 1.86 H, Estim Creat Clear Calc 51.23, Est GFR (MDRD) Af Amer 47 L, Est GFR (MDRD) Non-Af 39 L, BUN/Creatinine Ratio 23.7 H, Glucose 200 H, Calcium 8.4 L 05/03/19 07:41: POC Glucose 193 H Current Medications Acetaminophen (Tylenol) 650 mg PO Q6H PRN PRN PRN Reason: Pain Score 1-10/Temp > 100.7 F Amlodipine Besylate (Norvasc) 5 mg PO DAILY [facility] Ascorbic Acid (Vitamin C) 500 mg PO DAILY@0800 [facility] Aspirin (Aspirin) 325 mg PO DAILY@0800 [facility] Glucagon () 1 mg IM .X1 PRN PRN Reason: Hypoglycemia Heparin Sodium (Porcine) (Heparin Na) 5,000 unit SC Q8 [facility] Last Admin: 05/03/19 06:18 Dose: 5,000 unit Documented by: Sodium Chloride () 1,000 mls @ 100 mls/hr IV .Q10H [facility] Last Infusion: 05/03/19 03:04 Dose: 100 mls/hr Documented by: Cefepime HCl 2 gm/ Sodium (Chloride) 100 mls @ 200 mls/hr IV Q24 [facility] Last Infusion: 05/02/19 19:02 Dose: Infused Documented by: Vancomycin IV Pharmacy to Dose (1 ea/ Sodium Chloride) 500 mls @ 250 mls/hr IV PRN PRN; Protocol PRN Reason: Rx to Dose Dextrose (Dextrose 10%-Water) 250 mls @ 999 mls/hr IV .Q16M PRN; Protocol PRN Reason: HYPOGLYCEMIA Vancomycin HCl (Vancomycin) 1,000 mg in 200 mls @ 200 mls/hr IV Q12H [facility] Last Infusion: 05/03/19 03:04 Dose: Infused Documented by: Insulin Glargine (Lantus (Bkc)) 40 units SC 1100,2200 [facility] Last Admin: 05/02/19 21:58 Dose: Not Given Documented by: Insulin Human Lispro (Humalog Kwikpen (Bkc)) 0 unit SC ACHS [facility]; Protocol Last Admin: 05/02/19 21:52 Dose: 2 u Documented by: Insulin Human Lispro (Humalog Kwikpen (Bkc)) 20 unit SC TIDAC [facility] Melatonin (Melatonin) 3 mg PO QHS PRN PRN PRN Reason: INSOMNIA Metoprolol Succinate (Toprol Xl (Beta Marshall)) 50 mg PO DAILY [facility] Naproxen (Naprosyn) 500 mg PO BID PRN PRN PRN Reason: Pain Score 1-10/10 or Fever Last Admin: 05/02/19 21:03 Dose: 500 mg Documented by: Nutritional Formula (Lactose Free) (Glucerna Shake) 120 ml PO 4X/DAY JIM Nystatin (Mycostatin Powder) 1 applic TOPICAL BID JIM; Protocol Last Admin: 05/02/19 21:51 Dose: 1 applicatio Documented by: Ondansetron HCl (Zofran) 4 mg IV Q8H PRN PRN PRN Reason: NAUSEA/VOMITING Oxycodone HCl (Oxyir) 5 mg PO Q6H PRN PRN PRN Reason: Pain Score 6-10/10 Last Admin: 05/03/19 00:43 Dose: 5 mg Documented by: Polyethylene Glycol (Miralax) 17 gm PO DAILY PRN PRN PRN Reason: Constipation Sodium Chloride () 10 - 40 ml IV UD PRN PRN Reason: SALINE FLUSH Medical Necessity - Tobacco Use Smoking Status: Never smoker Tobacco Use: Non-smoker Assessment/Plan All Active Problems Trauma of toe of right foot (Acute) Diabetic infection of left foot (Acute) Chronic ulcer of left foot with fat layer exposed (Resolved) Blister of foot, right (Acute) Infection of right foot (Resolved) Blister (nonthermal), right lesser toe(s), initial encounter (Acute) Skin ulcer of left foot including toes, limited to breakdown of skin (Acute) Blister of left leg (Acute) Blister of right foot (Acute) Ulcer of left lower extremity with fat layer exposed (Resolved) Cellulitis of right lower extremity (Resolved) Septic joint (Acute) Non-pressure chronic ulcer of other part of left foot limited to breakdown of skin (Resolved) Cellulitis of right foot (Resolved) Infection of right foot (Resolved) Neuropathic ulcer of right heel (Acute) Cellulitis of right heel (Acute) Ulcer left foot with necrosis down to fascia layer s/p debridement on 05/02/19 Abscess left foot w/ cellulitis Right foot/heel/leg ulcerations down to subcutaneous tissue layer Left leg ulcerations Diabetes w/ neuropathy TMA left foot Reviewed diagnostic data. Left foot doing much better. Cultures pending. Continue with antibiotics and wound care, as well as offloading. Adjust antibiotic pending culture results. Wound care left foot/leg: Melgisorb with overlying gauze, kerlix and marlo dressings. Also two blisters to the anterior medial leg - adaptic with overlying gauze, kerlix and marlo dressing - change daily. Right foot/heel/leg ulcerations: Melgisorb with overlying gauze, kerlix and marlo dressings. Change daily. No weightbearing left foot or right foot. Will need nursing placement for wound care, and patient nonweightbearing. Ok to d/c once discharge antibiotics are determined. Diabetes and further medical management per medicine team. Podiatry will continue to follow.
[2019-05-03] MEDS: Insulin Lispro 100 UNIT/ML INSULN.PEN 20 UNIT SC ×2 (09:36→12:36)
[2019-05-03] MEDS: Insulin Lispro 100 UNIT/ML INSULN.PEN SC ×4 (09:36→22:05)
[2019-05-03] MEDS: Metoprolol(XL)Succ 50 MG Tablet PO (09:38)
[2019-05-03] MEDS: Aspirin 325 MG Tablet PO (09:38)
[2019-05-03] MEDS: amLODIPine 5 MG Tablet PO (09:38)
[2019-05-03] MEDS: Nystatin Powder 15gm Bottle 1 APPLIC TOPICAL ×2 (09:38→22:18)
[2019-05-03] MEDS: Ascorbic Acid 500 MG Tablet PO (09:38)
[2019-05-03] MEDS: Glucerna Shake 120 ML LIQUID PO (09:45)
--- NOTE | 2019-05-03 10:09 | NURSING ---
wound photo: left plantar foot
--- NOTE | 2019-05-03 10:13 | NURSING ---
wound photo: right lower leg
--- NOTE | 2019-05-03 10:14 | NURSING ---
wound photo: right 2nd toe
--- NOTE | 2019-05-03 10:14 | NURSING ---
wound photo: right heel
--- NOTE | 2019-05-03 10:40 | CASEMGMT ---
RN CM Assessment Note Presentation: Diabetic Foot Ulcer. 05.02.19 -Surgical debridement of L foot ulcer. Intro role of CM and purpose of RN CM assessment to patient in room. Pt is awake, alert and able to participate in assessment. Demographics, PCP and Pharmacy verified. Pt states he is requiring considerable assist at home being provided by Home Health Aides and Home Health nurses. Pt was being seen by [facility] wound center and podiatry. PCP: Dr. Ac Cummins Specialists: Dr. Koch Preferred [facility]acy: [facility] Insurance: [facility] AB/MELANIE Prescription Benefit: yes LNOK: Niece Tabby Early. LW/DPOA: none. Pt states his niece is only family. RN CM let pt know DPOA/LW papers can be completed @ [facility] if pt would like. Living Arrangements: Mobile Home, 40 foot ramp into home. Pt states he requires assist with bathing, home care assist, meals. Area Agency onAging: Edging Supervisor Nuris Gomez [id number] Passport services: [facility] - aide M F: home care 5.5 hours/week; Personal care 3 hours per week Transportation: Pt uses [employer] for transportation DME: cane, power wheelchair, Hospital bed ([facility], [place]), States he has broken wheelchair which he is working on getting new seat for as insurance will not cover for 2 more years. Pt also states he does not like his hospital bed, and is working with [facility] to get new one or just return. [facility]: [facility] Watcher [employer] . Nursing 2x week for wound care SW Referral: SNF referral Patient DC goals: [facility] DC PLAN: SNF placement for PT, wound care, difficulty caring for self at home. Cody GONZALEZ RN ACM
[2019-05-03 11:30] LABS: Bedside Glucose 172 mg/dL (70-110)
--- NOTE | 2019-05-03 12:24 | CASEMGMT ---
Social Work Received referral that pt would like to go to [facility] for rehab and wound care prior to return home. Phone call to Nila at [facility] and they will have a bed available later in the week. Clinical information faxed to Nila. Will await determination if they can accept pt. Pt ready for d/c on . JODY Daniels
--- NOTE | 2019-05-03 13:17 | NURSING ---
Reviewed student documentation.
[2019-05-03 14:44] LABS: Pathologist Review Reviewed
[2019-05-03 15:26] LABS: BNP,B-Type NATRIURETIC PEPTIDE 151.8 pg/mL (0-100)
--- NOTE | 2019-05-03 15:59 | NURSING ---
TEXT TO DR ANAYA NOTIFYING HIM THAT PT REFUSED ECHO & IS ALSO REFUSING NEW ORDER FOR APRESOLINE. PT REQUESTING SOMETHING FOR SORE THROAT - CEPACOL LOZENGES ORDERED.
[2019-05-03] MEDS: BENZOCAINE/MENTHOL 1 LOZENGE MUCOUS MEM (16:26)
[2019-05-03] MEDS: Insulin Lispro 100 UNIT/ML INSULN.PEN 25 UNIT SC (16:33)
[2019-05-03 17:06] LABS: Bedside Glucose 187 mg/dL (70-110)
[2019-05-03 22:26] LABS: Bedside Glucose 185 mg/dL (70-110)
[2019-05-04] VITALS (7 sets, daily range): BP systolic 138–171; BP diastolic 47–83; PULSE 69–83; RESP 16–18; TEMP 37–37.4; O2SAT 92–95
[2019-05-04] MEDS: Vancomycin IV 1,000 MG/200 ML BAG 200 MG IV ×2 (03:05→14:17)
[2019-05-04] MEDS: 0.9% Normal Saline 1,000 ML 50 ML IV (03:05)
[2019-05-04 03:20] LABS: Absolute Lymphocyte Count 0.98 X10^3/uL (0.83-4.51); Absolute Neutrophil Count 4.5 X10^3/uL (2.0-7.7); Basophil# 0.03 X10^3/uL; Basophil% 0.4 % (0-1); Eosinophil# 0.45 X10^3/uL; Eosinophils% 6.6 % (0-5); Hematocrit 30.1 % (40-54); Hemoglobin 9.2 g/dL (13.0-16.5); Lymphocyte # 0.98 X10^3/ul (4.0); Lymphocyte % 14.4 % (19-41); Mean Corp Hgb Conc 30.6 g/dL (32-36); Mean Corpuscular Hgb 26.1 pg (27.0-32.0); Mean Corpuscular Volume 85.5 fL (80-94); Mean Platelet Vol. 10.7 fl (6.2-12.0); Monocyte# 0.81 X10^3/uL; Monocyte% 11.9 % (0-10); NRBC Flagged by Analyzer 0 % (0-5); Neutrophil # 4.52 X10^3/uL (2.7-7.7); Neutrophil % 66.4 % (47-70); Platelet Count 165 K/mm3 (150-450); RBC Distribution Width CV 15.1 % (11.6-14.6); RBC Distribution Width SD 47.2 fl (35.1-43.9); Red Blood Count 3.52 M/mm3 (4.6-6.2); White Blood Count 6.8 K/mm3 (4.4-11.0)
[2019-05-04 04:17] LABS: Anion Gap 6 (5-15); BUN 44 mg/dL (7-18); BUN/Creat Ratio 23.5 RATIO (10-20); Calcium,Total 8.4 mg/dL (8.5-10.1); Chloride 109 mmol/L (98-107); Creatinine, Serum 1.87 mg/dL (0.70-1.30); EST Glomerular Filtration Rate 39 mL/min (>60); Est Glom Filt Rate - Afr Amer 47 mL/min (>60); Estimated Creatinine Clearance 50.96 ml/min; Glucose 174 mg/dL (74-106); Potassium 4.4 mmol/L (3.5-5.1); Sodium Level 139 mmol/L (136-145)
[2019-05-04] MEDS: Heparin Injection (Vial) 5,000 UNIT/ML VIAL 5000 UNIT SC ×3 (05:20→21:18)
--- NOTE | 2019-05-04 07:22 | PCM.PROGNOTE ---
Patient Problems: Active and Suspected Problems Diabetic infection of left foot (Acute) Subjective: Patient was seen this morning for follow up on left foot. He was resting comfortably in bed, no new complaints. No complaints of fever, chills, nausea or vomiting. - Physical Exam Vitals/I&O's: Vital Signs Temp Pulse Resp BP Pulse Ox 98.6 F 70 16 157/50 H 95 05/04/19 03:12 05/04/19 03:12 05/04/19 03:12 05/04/19 03:12 05/04/19 03:12 Oxygen Delivery Method Room Air Weight: 198.7 kg Body Mass Index (BMI) 51.9 Finger Stick Blood Glucose 222 Intake and Output for Last 24 Hours 05/02/19 05/03/19 05/04/19 23:59 23:59 23:59 Intake Total 694 / 1234 4700.00 / 4700.00 486.67 / 486.67 Output Total 1974 / 1974 450 / 450 Balance 694 / 834 2725.00 / 2725.00 36.67 / 36.67 General: Alert, Oriented x3, Cooperative, No apparent distress Extremities: Capillary Refill Less than 3 Seconds, No Calf Tenderness, - - s/p debridement left plantar arch ulceration - tissues healthy and viable with intact margins - granular bleeding tissue, no maloder, no fluctuance, no crepitus, no remaining visible abscess to the left foot. The ulcer plantar left foot is down to subcutaneous tissue layer. 3 small water blisters to the anterior medial left leg and smaller wound present down to subcutaneous tissue layer w/ granular tissue and viable margins - no evidence of infection. Psych/Mental Status: Appropriate, Alert and oriented to time, place, person, mood and affect Microbiology Past 72 Hours 05/02/19 18:50 Wound Abcess - Aerobic & Anaerobic Swabs Gram Stain - Final 05/02/19 18:50 Wound Abcess - Aerobic & Anaerobic Swabs Wound Culture - Preliminary No growth-Final to follow 05/02/19 15:10 Wound - Left Foot Gram Stain - Final 05/02/19 15:10 Wound - Left Foot Wound Culture - Preliminary Streptococcus group A Gram negative vidal Staphylococcus species Laboratory Results 05/02/19 12:00: Diff Path Review Reviewed 05/03/19 05:30: B-Natriuretic Peptide 151.8 H 05/03/19 07:41: POC Glucose 193 H 05/03/19 11:24: POC Glucose 172 H 05/03/19 16:28: POC Glucose 187 H 05/03/19 22:04: POC Glucose 185 H 05/04/19 03:05: Vancomycin Trough Pending 05/04/19 03:05: WBC 6.8, RBC 3.52 L, Hgb 9.2 L, Hct 30.1 L, MCV 85.5, MCH 26.1 L, MCHC 30.6 L, RDW Std Deviation 47.2 H, RDW Coeff of Pool 15.1 H, Plt Count 165, MPV 10.7, Immature Gran % (Auto) 0.300, Neut % (Auto) 66.4, Lymph % (Auto) 14.4 L, [place] % (Auto) 11.9 H, Eos % (Auto) 6.6 H, Baso % (Auto) 0.4, Absolute Neuts (auto) 4.5, Absolute Lymphs (auto) 0.98, Nucleated RBC % 0 05/04/19 03:05: Sodium 139, Potassium 4.4, Chloride 109 H, Carbon Dioxide 24.0, Anion Gap 6, BUN 44 H, Creatinine 1.87 H, Estim Creat Clear Calc 50.96, Est GFR (MDRD) Af Amer 47 L, Est GFR (MDRD) Non-Af 39 L, BUN/Creatinine Ratio 23.5 H, Glucose 174 H, Calcium 8.4 L 05/04/19 03:05: Hemoglobin A1c Pending Current Medications Acetaminophen (Tylenol) 650 mg PO Q6H PRN PRN PRN Reason: Pain Score 1-10/Temp > 100.7 F Amlodipine Besylate (Norvasc) 5 mg PO DAILY COUNT INCLUDES THE [facility] Last Admin: 05/03/19 09:38 Dose: 5 mg Documented by: Ascorbic Acid (Vitamin C) 500 mg PO DAILY@0800 COUNT INCLUDES THE [facility] Last Admin: 05/03/19 09:38 Dose: 500 mg Documented by: Aspirin (Aspirin) 325 mg PO DAILY@0800 COUNT INCLUDES THE [facility] Last Admin: 05/03/19 09:38 Dose: 325 mg Documented by: Glucagon () 1 mg IM .X1 PRN PRN Reason: Hypoglycemia Heparin Sodium (Porcine) (Heparin Na) 5,000 unit SC Q8 COUNT INCLUDES THE [facility] Last Admin: 05/04/19 05:20 Dose: 5,000 unit Documented by: Hydralazine HCl (Apresoline Iv) 10 mg IV Q4H PRN PRN PRN Reason: SBP>180, DBP>100 Hydralazine HCl (Apresoline) 25 mg PO TID COUNT INCLUDES THE [facility] Last Admin: 05/04/19 03:14 Dose: Not Given Documented by: Sodium Chloride () 1,000 mls @ 50 mls/hr IV .Q20H COUNT INCLUDES THE [facility] Last Infusion: 05/04/19 04:05 Dose: 50 mls/hr Documented by: Cefepime HCl 2 gm/ Sodium (Chloride) 100 mls @ 200 mls/hr IV Q24 COUNT INCLUDES THE [facility] Last Infusion: 05/03/19 10:15 Dose: Infused Documented by: Vancomycin IV Pharmacy to Dose (1 ea/ Sodium Chloride) 500 mls @ 250 mls/hr IV PRN PRN; Protocol PRN Reason: Rx to Dose Dextrose (Dextrose 10%-Water) 250 mls @ 999 mls/hr IV .Q16M PRN; Protocol PRN Reason: HYPOGLYCEMIA Vancomycin HCl (Vancomycin) 1,000 mg in 200 mls @ 200 mls/hr IV Q12H COUNT INCLUDES THE [facility] Last Infusion: 05/04/19 04:05 Dose: Infused Documented by: Insulin Glargine (Lantus (Bkc)) 40 units SC 1100,2200 COUNT INCLUDES THE [facility] Last Admin: 05/03/19 22:05 Dose: 40 units Documented by: Insulin Human Lispro (Humalog Kwikpen (Bkc)) 0 unit SC ACHS COUNT INCLUDES THE [facility]; Protocol Last Admin: 05/03/19 22:05 Dose: 2 u Documented by: Insulin Human Lispro (Humalog Kwikpen (Bkc)) 25 unit SC TIDAC COUNT INCLUDES THE [facility] Last Admin: 05/03/19 16:33 Dose: 25 units Documented by: Melatonin (Melatonin) 3 mg PO QHS PRN PRN PRN Reason: INSOMNIA Metoprolol Succinate (Toprol Xl (Beta [place])) 50 mg PO DAILY COUNT INCLUDES THE [facility] Last Admin: 05/03/19 09:38 Dose: 50 mg Documented by: Multivitamins (Multivitamin) 1 tablet PO DAILY@0800 COUNT INCLUDES THE [facility] Nutritional Formula (Vu - Woods Flavor) 1 packet PO BIDCM COUNT INCLUDES THE [facility] Last Admin: 05/03/19 18:30 Dose: 1 packet Documented by: Nystatin (Mycostatin Powder) 1 applic TOPICAL BID COUNT INCLUDES THE [facility]; Protocol Last Admin: 05/03/19 22:18 Dose: 1 applicatio Documented by: Ondansetron HCl (Zofran) 4 mg IV Q8H PRN PRN PRN Reason: NAUSEA/VOMITING Oxycodone HCl (Oxyir) 5 mg PO Q6H PRN PRN PRN Reason: Pain Score 6-10/10 Last Admin: 05/03/19 00:43 Dose: 5 mg Documented by: Polyethylene Glycol (Miralax) 17 gm PO DAILY PRN PRN PRN Reason: Constipation Sodium Chloride () 10 - 40 ml IV UD PRN PRN Reason: SALINE FLUSH Throat Lozenges (Cepacol Sore Throat Lozenge) 1 lozenge MUCOUS MEM Q2H PRN PRN PRN Reason: SORE THROAT Last Admin: 05/03/19 16:26 Dose: 1 lozenge Documented by: Medical Necessity - Tobacco Use Smoking Status: Never smoker Tobacco Use: Non-smoker Assessment/Plan All Active Problems Trauma of toe of right foot (Acute) Diabetic infection of left foot (Acute) Chronic ulcer of left foot with fat layer exposed (Resolved) Blister of foot, right (Acute) Infection of right foot (Resolved) Blister (nonthermal), right lesser toe(s), initial encounter (Acute) Skin ulcer of left foot including toes, limited to breakdown of skin (Acute) Blister of left leg (Acute) Blister of right foot (Acute) Ulcer of left lower extremity with fat layer exposed (Resolved) Cellulitis of right lower extremity (Resolved) Septic joint (Acute) Non-pressure chronic ulcer of other part of left foot limited to breakdown of skin (Resolved) Cellulitis of right foot (Resolved) Infection of right foot (Resolved) Neuropathic ulcer of right heel (Acute) Cellulitis of right heel (Acute) Ulcer left foot with necrosis down to fascia layer s/p debridement on 05/02/19 Abscess left foot w/ cellulitis Right foot/heel/leg ulcerations down to subcutaneous tissue layer Left leg ulcerations Diabetes w/ neuropathy TMA left foot Reviewed diagnostic data. Left foot continues to improve. Cultures growing staph, strep and gram neg vidal - finals pending. Continue with antibiotics and wound care, as well as offloading. Adjust antibiotic pending culture results. Wound care left foot/leg: Melgisorb with overlying gauze, kerlix and marlo dressings. Also blisters to the anterior medial leg - adaptic with overlying gauze, kerlix and marlo dressing - change daily. Right foot/heel/leg ulcerations: Melgisorb with overlying gauze, kerlix and marlo dressings. Change daily. No weightbearing left foot or right foot. Will need nursing placement for wound care, and patient nonweightbearing. Ok to d/c once discharge antibiotics are determined. Patient will need to follow up at wound center within 1 week after discharge. Diabetes and further medical management per medicine team. Podiatry will continue to follow.
[2019-05-04 07:35] LABS: Vancomycin, Trough Level 18.8 ug/mL (5.0-15.0)
[2019-05-04 07:50] LABS: Bedside Glucose 162 mg/dL (70-110)
[2019-05-04 08:25] LABS: Hemoglobin A1c 9.4 % (4.2-6.3)
--- NOTE | 2019-05-04 08:54 | PCM.RX.CS ---
Consult Pharmacy has been consulted to manage selected antiobiotic: Vancomycin Type of Consult: Follow-up Suspected Infection: Skin/Soft tissue Prior Doses of Antibiotics Received/Current Regimen: 4 DOSES ALREADY ADMINISTERED Labs: Sodium 139 mmol/L (136-145) 05/04/19 03:05 Potassium 4.4 mmol/L (3.5-5.1) 05/04/19 03:05 Chloride 109 mmol/L (98-107) H 05/04/19 03:05 Carbon Dioxide 24.0 mmol/L (21.0-32.0) 05/04/19 03:05 Anion Gap 6 (5-15) 05/04/19 03:05 BUN 44 mg/dL (7-18) H 05/04/19 03:05 Creatinine 1.87 mg/dL (0.70-1.30) H 05/04/19 03:05 Est GFR (MDRD) Af Amer 47 mL/min (>60) L 05/04/19 03:05 Est GFR (MDRD) Non-Af 39 mL/min (>60) L 05/04/19 03:05 BUN/Creatinine Ratio 23.5 RATIO (10-20) H 05/04/19 03:05 Glucose 174 mg/dL (74-106) H 05/04/19 03:05 Vancomycin Trough 18.8 ug/mL (5.0-15.0) H 05/04/19 03:05 WILL CONTINUE SAME DOSE, MONITOR RENAL FUNCTION AND RECHECK VANCO TROUGH IN 4 MORE DOSES. Microbiology: Microbiology 05/02/19 18:50 Wound Abcess - Aerobic & Anaerobic Swabs Gram Stain - Final 05/02/19 18:50 Wound Abcess - Aerobic & Anaerobic Swabs Wound Culture - Preliminary No growth-Final to follow 05/02/19 15:10 Wound - Left Foot Gram Stain - Final 05/02/19 15:10 Wound - Left Foot Wound Culture - Preliminary Streptococcus group A Gram negative vidal Staphylococcus species Weight used for dosin.7 kg Estimated Creatinine Clearance: 50.96 Goal Trough: 15-20 mcg/mL - CONTINUE SAME DOSE AND REDRAW TROUGH LEVEL IN 4 MORE DOSES, 05/06/19 @ 0230 Pharmacy Plan for Drug Dosing: Pharmacy Service will continue to monitor and adjust dosing as required.
[2019-05-04] MEDS: Insulin Lispro 100 UNIT/ML INSULN.PEN SC ×4 (09:09→21:21)
[2019-05-04] MEDS: amLODIPine 5 MG Tablet PO (09:10)
[2019-05-04] MEDS: Aspirin 325 MG Tablet PO (09:10)
[2019-05-04] MEDS: Metoprolol(XL)Succ 50 MG Tablet PO (09:10)
[2019-05-04] MEDS: Insulin Lispro 100 UNIT/ML INSULN.PEN 25 UNIT SC (09:10)
[2019-05-04] MEDS: Multivitamins,Therapeutic Tablet 1 TABLET PO (09:10)
[2019-05-04] MEDS: Ascorbic Acid 500 MG Tablet PO (09:11)
[2019-05-04] MEDS: Nystatin Powder 15gm Bottle 1 APPLIC TOPICAL ×2 (09:11→21:18)
[2019-05-04] MEDS: BENZOCAINE/MENTHOL 1 LOZENGE MUCOUS MEM (09:42)
--- NOTE | 2019-05-04 10:18 | CASEMGMT ---
Addendum entered by Emperatriz Aldana 05/04/19 11:08: SW received call from Nila at [facility] stating she has no beds available at this time. SW in to speak with pt. SW updated pt that [facility] has no beds available at this time. Pt states well then I am going home. SW informed pt that there are other SNF in [place] that a referral can be sent to. SW attempted to provided pt with list of SNF and Medicare ratings but pt states I've been to two other SNF in [place] and they were terrible and I am not going back there. SW asked pt which SNF he has been to before. Pt states [facility] and [facility]. SW informed pt that there is also [facility] and [facility] in [place]. Pt states he will not go to [facility]. Pt agreeable to referral being sent to [facility]. SW informed pt that he could also go to a SNF in [place] or [place]. Pt states if [facility] can't take me, I will just go home. Pt states I can be nonweightbearing, I was already using the transfer board for transfers. SW faxed referral to [facility]. Original Note: Social Work Note SW placed a call to Nila at [facility] and left message asking about referral. SW waiting for call back. Plan: SNF pending acceptance Emperatriz Aldana BUTTON INSPECTOR, TOP TRIMMER
[2019-05-04] MEDS: Lisinopril 10 MG Tablet PO (12:03)
[2019-05-04] MEDS: Polyethylene Glycol 3350 17 GM PACKET PO (12:11)
--- NOTE | 2019-05-04 12:16 | ECHOCS_ITS ---
Reason For Study: CHF Procedure This was a 2D Doppler, Color Flow transthoracic echocardiogram. The exam was of poor technical quality due to body habitus. Contrast injection was performed. The study was technically limited. Exam performed portable in patient room. Left Ventricle Normal LV size. The estimated ejection fraction is 65 %. No evidence for diastolic dysfunction. No regional wall motion abnormalities noted. Right Ventricle Normal RV size. Normal systolic function. Atria The left atrium is not well visualized. The right atrium is not well visualized. Mitral Valve Mitral valve not well visualized. There is no mitral valve stenosis. No mitral valve insufficiency. Tricuspid Valve The tricuspid valve is not well visualized. Aortic Valve The aortic valve is not well visualized. No aortic valve insufficiency. Pulmonic Valve The pulmonic valve is not well visualized. Great Vessels aortic root not visualised. Pericardium/Pleural No pericardial effusion. Medication Diluted definity 6.0ml given slow IV push to enhance endocardial definition. MMode/2D Measurements & Calculations LVIDd: 5.4 cm IVSd: 1.2 cm Ao root diam: 3.7 cm LVIDs: 3.2 cm LVPWd: 1.3 cm FS: 40.6 % LA dimension(2D): 4.3 cm Time Measurements MV dec time: 0.27 sec Doppler Measurements & Calculations MV E max ang: 99.9 cm/sec Lat Peak E' Ang: 10.5 cm/sec Med Peak E' Ang: 10.0 cm/sec MV A max ang: 81.5 cm/sec E/E' lat: 9.5 E/E' med: 10.0 MV E/A: 1.2 Interpretation Summary The study was technically difficult. Contrast injection was performed. The estimated ejection fraction is 65 %. No evidence for diastolic dysfunction. The study was technically difficult. Contrast injection was performed. Ordering Physician: Loy Verma Referring Physician: JUANI DOWD Performed By: Fiona Carrero, DANIEL, RVT
--- NOTE | 2019-05-04 12:38 | NURSING ---
Student documentation reviewed.
--- NOTE | 2019-05-04 13:55 | CASEMGMT ---
Addendum entered by Emperatriz Aldana 05/04/19 14:54: SW received call from Rossana at [facility] stating she is able to accept pt tomorrow and asked when pt was last in a SNF. SW in to speak with pt and updated him on acceptance to [facility]. SW asked pt about past SNFs. Pt states that the last time he was in a SNF was in 2017. SW placed a call to Rossana at [facility] and left message and updated her that the last time pt was at a SNF was 2017. Plan: [facility] tomorrow skilled. Original Note: Social Work Note SW received call from Kaylyn at [facility] stating they have no beds available at this time. SW in to speak with pt and updated pt that [facility] is not able to accept pt. Pt states again well I will just go home then. SW informed pt again that this worker can try different SNF in [place] or can look into [place] or [place] or any area as all SNF take Medicare. SW informed pt that if he goes to SNF in [place] it would be closer for his foot doctor. Pt agreeable to SNF in [place]. SW provided pt with list of SNF with Medicare ratings for [facility]. Pt states that he would like to stay in [place]. Pt states that his first choice would [facility]. SW explained referral process and Medicare rules and guidelines. SW placed a call to Rossana at [facility] and provided referral. SW faxed referral. Plan: [facility] pending acceptance Emperatriz Aldana STOKER ERECTOR AND SERVICER, KNITTER HELPER
[2019-05-04] MEDS: hydrALAZINE 50 MG Tablet PO (14:18)
--- NOTE | 2019-05-04 15:20 | PCM.PN.HOSP ---
Patient Problems: Active and Suspected Problems Diabetic infection of left foot (Acute) Reason for Visit: Bilateral lower extremity lymphedema, cellulitis and nonhealing ulcer. Objective: No fever or chills. Patient blood pressure is elevated. BP 171/83, controlled to 142/47. T-max 99.6. Yesterday, patient refused for 2D echo and Apresoline but today he agreed and got convinced. 2D echo ordered. Vitals/I&O's: Vital Signs Temp Pulse Resp BP Pulse Ox 98.9 F 79 18 142/47 H 93 05/04/19 14:00 05/04/19 14:18 05/04/19 14:00 05/04/19 14:00 05/04/19 14:00 Oxygen Delivery Method Room Air Weight: 438 lb 0.936 oz Body Mass Index (BMI) 51.9 Finger Stick Blood Glucose 222 Intake and Output for Last 24 Hours 05/02/19 05/03/19 05/04/19 23:59 23:59 23:59 Intake Total 694 / 1234 4700.00 / 4700.00 2071.67 / 2071.67 Output Total 1974 1300 / 1300 Balance 694 / 834 2725.00 / 2725.00 771.67 / 771.67 General: Alert, Oriented x3, Cooperative HEENT: Atraumatic, PERRLA, EOMI, Normocephalic Neck: Supple, No JVD, Negative Carotid Bruits Lungs: Clear to auscultation, No rhonchi, No wheeze, No rales, Diminished Cardiovascular: Regular rate, Regular Rhythm, Normal S1, Normal S2, No murmurs Abdomen: Bowel Sounds Present, Soft, Non Tender Extremities: Capillary Refill Less than 3 Seconds, Edema, - - Mateus wrap bandage around lower legs. Skin: Ulcer/ Wound - Multiple ulcer in bilateral lower extremities. 1. Right heel with thickened margin.2 Right second toe ulcer, dry, thickened skin with multiple superficial bruises/skin erosions on right leg. 3 Left leg, transmetatarsal amputation. Midfoot has large ulcer, granulation tissue on floor, Rash Present - Lower leg cellulitis. Musculoskeletal: Arthritic Changes Neurological: Cranial nerves II-XII grossly intact, Deep Tendon Reflexes 2+/4 and Symmetrical, Neuro grossly intact Psych/Mental Status: Normal Affect, Appropriate Microbiology Past 72 Hours 05/02/19 18:50 Wound Abcess - Aerobic & Anaerobic Swabs Gram Stain - Final 05/02/19 18:50 Wound Abcess - Aerobic & Anaerobic Swabs Wound Culture - Preliminary No growth-Final to follow 05/02/19 18:50 Wound Abcess - Aerobic & Anaerobic Swabs Anaerobic Culture - Preliminary Checking for anaerobes, further studies to follow. 05/02/19 15:10 Wound - Left Foot Gram Stain - Final 05/02/19 15:10 Wound - Left Foot Wound Culture - Preliminary Streptococcus group A Escherichia coli Staphylococcus aureus 05/02/19 15:10 Wound - Left Foot Anaerobic Culture - Preliminary Checking for anaerobes, further studies to follow. Laboratory Results 05/03/19 05:30: B-Natriuretic Peptide 151.8 H 05/03/19 16:28: POC Glucose 187 H 05/03/19 22:04: POC Glucose 185 H 05/04/19 03:05: Vancomycin Trough 18.8 H 05/04/19 03:05: WBC 6.8, RBC 3.52 L, Hgb 9.2 L, Hct 30.1 L, MCV 85.5, MCH 26.1 L, MCHC 30.6 L, RDW Std Deviation 47.2 H, RDW Coeff of Pool 15.1 H, Plt Count 165, MPV 10.7, Immature Gran % (Auto) 0.300, Neut % (Auto) 66.4, Lymph % (Auto) 14.4 L, [place] % (Auto) 11.9 H, Eos % (Auto) 6.6 H, Baso % (Auto) 0.4, Absolute Neuts (auto) 4.5, Absolute Lymphs (auto) 0.98, Nucleated RBC % 0 05/04/19 03:05: Sodium 139, Potassium 4.4, Chloride 109 H, Carbon Dioxide 24.0, Anion Gap 6, BUN 44 H, Creatinine 1.87 H, Estim Creat Clear Calc 50.96, Est GFR (MDRD) Af Amer 47 L, Est GFR (MDRD) Non-Af 39 L, BUN/Creatinine Ratio 23.5 H, Glucose 174 H, Calcium 8.4 L 05/04/19 03:05: Hemoglobin A1c 9.4 H 05/04/19 07:40: POC Glucose 162 H Current Medications Acetaminophen (Tylenol) 650 mg PO Q6H PRN PRN PRN Reason: Pain Score 1-10/Temp > 100.7 F Amlodipine Besylate (Norvasc) 5 mg PO DAILY [facility] Last Admin: 05/04/19 09:10 Dose: 5 mg Documented by: Ascorbic Acid (Vitamin C) 500 mg PO DAILY@0800 [facility] Last Admin: 05/04/19 09:11 Dose: 500 mg Documented by: Aspirin (Aspirin) 325 mg PO DAILY@0800 [facility] Last Admin: 05/04/19 09:10 Dose: 325 mg Documented by: Glucagon () 1 mg IM .X1 PRN PRN Reason: Hypoglycemia Heparin Sodium (Porcine) (Heparin Na) 5,000 unit SC Q8 [facility] Last Admin: 05/04/19 14:19 Dose: 5,000 unit Documented by: Hydralazine HCl (Apresoline Iv) 10 mg IV Q4H PRN PRN PRN Reason: SBP>180, DBP>100 Hydralazine HCl (Apresoline) 50 mg PO BID [facility] Last Admin: 05/04/19 14:18 Dose: 50 mg Documented by: Sodium Chloride () 1,000 mls @ 50 mls/hr IV .Q20H [facility] Last Infusion: 05/04/19 14:17 Dose: 0 mls/hr Documented by: Cefepime HCl 2 gm/ Sodium (Chloride) 100 mls @ 200 mls/hr IV Q24 [facility] Last Infusion: 05/04/19 09:41 Dose: Infused Documented by: Vancomycin IV Pharmacy to Dose (1 ea/ Sodium Chloride) 500 mls @ 250 mls/hr IV PRN PRN; Protocol PRN Reason: Rx to Dose Dextrose (Dextrose 10%-Water) 250 mls @ 999 mls/hr IV .Q16M PRN; Protocol PRN Reason: HYPOGLYCEMIA Vancomycin HCl (Vancomycin) 1,000 mg in 200 mls @ 200 mls/hr IV Q12H [facility] Last Admin: 05/04/19 14:17 Dose: 200 mls/hr Documented by: Insulin Glargine (Lantus (Bk)) 40 units SC 1100,2200 [facility] Last Admin: 05/04/19 12:03 Dose: 40 units Documented by: Insulin Human Lispro (Humalog Kwikpen ([facility])) 0 unit SC ACHS [facility]; Protocol Last Admin: 05/04/19 12:03 Dose: 2 u Documented by: Insulin Human Lispro (Humalog Kwikpen (Bkc)) 25 unit SC TIDAC [facility] Last Admin: 05/04/19 11:50 Dose: Not Given Documented by: Lisinopril (Zestril) 10 mg PO DAILY [facility] Last Admin: 05/04/19 12:03 Dose: 10 mg Documented by: Melatonin (Melatonin) 3 mg PO QHS PRN PRN PRN Reason: INSOMNIA Metoprolol Succinate (Toprol Xl (Beta Marshall)) 50 mg PO DAILY [facility] Last Admin: 05/04/19 09:10 Dose: 50 mg Documented by: Multivitamins (Multivitamin) 1 tablet PO DAILY@0800 [facility] Last Admin: 05/04/19 09:10 Dose: 1 tablet Documented by: Nutritional Formula (Vu - [place] Flavor) [facility] Last Admin: 05/04/19 09:11 Dose: 1 packet Documented by: Nystatin (Mycostatin Powder) 1 applic TOPICAL BID [facility]; Protocol Last Admin: 05/04/19 09:11 Dose: 1 applicatio Documented by: Ondansetron HCl (Zofran) 4 mg IV Q8H PRN PRN PRN Reason: NAUSEA/VOMITING Oxycodone HCl (Oxyir) 5 mg PO Q6H PRN PRN PRN Reason: Pain Score 6-10/10 Last Admin: 05/03/19 00:43 Dose: 5 mg Documented by: Polyethylene Glycol (Miralax) 17 gm PO DAILY PRN PRN PRN Reason: Constipation Last Admin: 05/04/19 12:11 Dose: 17 gm Documented by: Sodium Chloride () 10 - 40 ml IV UD PRN PRN Reason: SALINE FLUSH Throat Lozenges (Cepacol Sore Throat Lozenge) 1 lozenge MUCOUS MEM Q2H PRN PRN PRN Reason: SORE THROAT Last Admin: 05/04/19 09:42 Dose: 1 lozenge Documented by: STROKE Vital Signs/Narrative: Vital Signs Temp Pulse Resp BP Pulse Ox 05/04/19 14:18 79 05/04/19 14:00 98.9 F 79 18 142/47 H 93 Medical Necessity - Tobacco Use Smoking Status: Never smoker Tobacco Use: Non-smoker Assessment/Plan All Active Problems Trauma of toe of right foot (Acute) Diabetic infection of left foot (Acute) Chronic ulcer of left foot with fat layer exposed (Resolved) Blister of foot, right (Acute) Infection of right foot (Resolved) Blister (nonthermal), right lesser toe(s), initial encounter (Acute) Skin ulcer of left foot including toes, limited to breakdown of skin (Acute) Blister of left leg (Acute) Blister of right foot (Acute) Ulcer of left lower extremity with fat layer exposed (Resolved) Cellulitis of right lower extremity (Resolved) Septic joint (Acute) Non-pressure chronic ulcer of other part of left foot limited to breakdown of skin (Resolved) Cellulitis of right foot (Resolved) Infection of right foot (Resolved) Neuropathic ulcer of right heel (Acute) Cellulitis of right heel (Acute) This is a 62-year-old gentleman with multiple comorbidities was admitted with hemorrhagic blister on his left foot, noticed 1 day before admission. Denies fever or chills. Initial blood work shows leukocytosis 15,000 with elevated creatinine 2.18. He was found to have multiple bilateral feet ulcer. 1. Type 2 diabetic, bilateral feet and leg ulcers complicated with abscess and cellulitis with a ruptured blister with left transmetatarsal amputation with chronic peripheral neuropathy WITH PAD Preliminary wound culture obtained shows a Streptococcus group A, E. coli and Staphylococcus species: Full culture report pending. Empirically on IV vancomycin and cefepime. Previous wound cultures grew Acinetobacter, corynebacterium, MSSA, Enterobacter, and Klebsiella. ID consult requested. Patient had abscess and infection of left foot ulcer with excisional debridement of left foot. Podiatry consult reviewed Accu-Cheks are about 150-180. Insulin is dose titrated up Lower extremity arterial Doppler in July 2016 reported as left BAO, supranormal suggestive of arterial calcification/arteriosclerosis. Right BAO normal. A1c 9.4. 2. JOANNA - -Baseline creatinine appears to be around 1.5, was admitted with BUN/creatinine 52/2.18. Gradually improving. Patient is on baseline creatinine. Will avoid nephrotoxic medications. 3. Hypertension: Blood pressure is slightly elevated: Titrate up the antihypertensive medication. -Continue with Norvasc, metoprolol and hold lisinopril secondary to acute kidney injury 4. Bilateral lower extremity lymphedema and morbid obesity Patient agreed for 2D echo. Patient has lower extremity lymphedema, BNP 151 but may be low secondary to morbid obesity. No echocardiogram in our system. Conservative management, leg elevation and Mateus wrap bandage. DVT prophylaxis: On heparin 5000 units subcu every 8 hourly Total time of the visit including total time spent in counseling or coordination of care, (more than 50% of the total time, spent in obtaining medical information from nurses and other ancillary care providers), discussion with the nursing staff, civil engineering project manager and integration consultant, review of labs and imaging is 35 minutes Microbiology Past 72 Hours 05/02/19 18:50 Wound Abcess - Aerobic & Anaerobic Swabs Gram Stain - Final 05/02/19 18:50 Wound Abcess - Aerobic & Anaerobic Swabs Wound Culture - Preliminary No growth-Final to follow 05/02/19 18:50 Wound Abcess - Aerobic & Anaerobic Swabs Anaerobic Culture - Preliminary Checking for anaerobes, further studies to follow. 05/02/19 15:10 Wound - Left Foot Gram Stain - Final 05/02/19 15:10 Wound - Left Foot Wound Culture - Preliminary Streptococcus group A Escherichia coli Staphylococcus aureus 05/02/19 15:10 Wound - Left Foot Anaerobic Culture - Preliminary Checking for anaerobes, further studies to follow. Laboratory Results 05/03/19 16:28: POC Glucose 187 H 05/03/19 22:04: POC Glucose 185 H 05/04/19 03:05: Vancomycin Trough 18.8 H 05/04/19 03:05: WBC 6.8, RBC 3.52 L, Hgb 9.2 L, Hct 30.1 L, MCV 85.5, MCH 26.1 L, MCHC 30.6 L, RDW Std Deviation 47.2 H, RDW Coeff of Pool 15.1 H, Plt Count 165, MPV 10.7, Immature Gran % (Auto) 0.300, Neut % (Auto) 66.4, Lymph % (Auto) 14.4 L, [place] % (Auto) 11.9 H, Eos % (Auto) 6.6 H, Baso % (Auto) 0.4, Absolute Neuts (auto) 4.5, Absolute Lymphs (auto) 0.98, Nucleated RBC % 0 05/04/19 03:05: Sodium 139, Potassium 4.4, Chloride 109 H, Carbon Dioxide 24.0, Anion Gap 6, BUN 44 H, Creatinine 1.87 H, Estim Creat Clear Calc 50.96, Est GFR (MDRD) Af Amer 47 L, Est GFR (MDRD) Non-Af 39 L, BUN/Creatinine Ratio 23.5 H, Glucose 174 H, Calcium 8.4 L 05/04/19 03:05: Hemoglobin A1c 9.4 H 05/04/19 07:40: POC Glucose 162 H Code Visit Inpatient E&M: 79021 Subs Hosp L3
--- NOTE | 2019-05-04 16:32 | PCM.HP.ID ---
Reason for Consult: L foot infection Consulted by: Dr. Verma History of Present Illness: The patient is a 63 year old M with DM neuropathy, presented with several days of worsening L foot redness, swelling. Started blood blister on bottom of his foot. Started to not feel well, came to ED, admitted on clinda x1 then vanc/cefepime. Seen by Dr. Koch, I&D done, feeling better. No n/v/d or rash on iv abx. Full ROS performed and neg except as noted aobve - Medical History Past Medical History (Chronic Problems): Chronic Problems Debility (Chronic) Lymphedema (Chronic) Venous insufficiency (Chronic) Peripheral vascular disease (Chronic) Tinea unguium (Chronic) Ulcer of right foot with fat layer exposed (Chronic) Ulcer of right foot with fat layer exposed (Chronic) Ulcer of right lower extremity with fat layer exposed (Chronic) Burn of leg (Chronic) Non-pressure chronic ulcer of other part of left foot with fat layer exposed (Chronic) Skin ulcer of left foot (Chronic) Hammer toe of right foot (Chronic) Skin ulcer of left foot (Chronic) Ulcer of right lower extremity with fat layer exposed (Chronic) Ulcer of left lower extremity with fat layer exposed (Chronic) Walking difficulty due to ankle and foot (Chronic) Obesity (Chronic) Lower extremity edema (Chronic) Type 2 diabetes mellitus with diabetic polyneuropathy (Chronic) Ulcer of right lower extremity with fat layer exposed (Chronic) Ulcer of left lower extremity with fat layer exposed (Chronic) Chronic ulcer of left foot with fat layer exposed (Chronic) Ulcer of right foot with fat layer exposed (Chronic) Physical deconditioning (Chronic) Ulcer of right lower extremity with fat layer exposed (Chronic) Ulcer of right lower extremity with fat layer exposed (Chronic) Chronic ulcer of left foot with fat layer exposed (Chronic) Dehiscence of amputation stump (Chronic) Type 2 diabetes mellitus with foot ulcer (Chronic) Type 2 diabetes mellitus with diabetic polyneuropathy (Chronic) Non-pressure chronic ulcer of right heel and midfoot with fat layer exposed (Chronic) Diabetic ulcer of foot with necrosis of muscle (Chronic) Malnutrition (Chronic) Obesity (Chronic) Lower extremity edema (Chronic) Ulcer of right foot with necrosis of muscle (Chronic) Diabetes mellitus with polyneuropathy (Chronic) Non-pressure chronic ulcer of right heel and midfoot with necrosis of muscle (Chronic) Diabetic foot ulcer (Chronic) Ulcer of right heel and midfoot with fat layer exposed (Chronic) Chronic ulcer of left foot with necrosis of muscle (Chronic) Diabetes mellitus with neuropathy (Chronic) Edema, lower extremity (Chronic) Allergies/Adverse Reactions: Allergies ciprofloxacin [From Cipro] Allergy (Verified 05/02/19 11:37) Rash he has tolerated oral cipro in the past levofloxacin [From Levaquin] Allergy (Verified 05/02/19 11:37) Hives Penicillins Allergy (Verified 05/02/19 11:37) Hives silver Allergy (Verified 05/02/19 11:37) Rash Skin márquez and itches, rash Home Medications: Ambulatory Orders Medication Instructions Recorded Polyethylene Glycol 3350 [Miralax] 17 gm PO DAILY PRN PRN 07/30/16 Aspirin 325 mg PO DAILY@0800 06/04/17 Furosemide 40 mg PO BID 06/04/17 Insulin NPH Human Isophane 40 units SQ DAILY@0800 06/04/17 [Novolin N] Insulin Regular, Human [Novolin R] 30 unit SQ TID 06/04/17 Lisinopril [Zestril] 10 mg PO DAILY 06/04/17 Metoprolol(XL)Succ [Toprol Xl 50 mg PO DAILY 06/04/17 (Beta Marshall)] Multivitamin [Multiple Vitamins] 1 each PO DAILY 06/04/17 Amlodipine [Norvasc] 5 mg PO DAILY 05/02/19 Ascorbic Acid [Vitamin C] 500 mg PO DAILY@0800 05/02/19 Insulin NPH Human Isophane 30 unit SQ DAILY@1700 05/02/19 [Novolin N] Naproxen 500 mg PO BID PRN 05/02/19 - Social History SMOKING STATUS:: Never smoker Vital Signs Temp Pulse Resp BP Pulse Ox 98.9 F 79 18 142/47 H 93 05/04/19 14:00 05/04/19 14:18 05/04/19 14:00 05/04/19 14:00 05/04/19 14:00 Oxygen Delivery Method Room Air Weight: 198.7 kg Body Mass Index (BMI) 51.9 Finger Stick Blood Glucose 222 Microbiology Past 72 Hours 05/02/19 18:50 Gram Stain - Final Wound Abcess - Aerobic & Anaerobic Swabs Wound Culture - Preliminary No growth-Final to follow Anaerobic Culture - Preliminary Checking for anaerobes, further studies to follow. 05/02/19 15:10 Gram Stain - Final Wound - Left Foot Wound Culture - Preliminary Streptococcus group A Escherichia coli Staphylococcus aureus Anaerobic Culture - Preliminary Checking for anaerobes, further studies to follow. Laboratory Tests Past 24 Hrs 05/04/19 05/04/19 05/04/19 03:05 03:05 03:05 WBC 6.8 RBC 3.52 L Hgb 9.2 L Hct 30.1 L MCV 85.5 MCH 26.1 L MCHC 30.6 L RDW Std Deviation 47.2 H RDW Coeff of Pool 15.1 H Plt Count 165 MPV 10.7 Immature Gran % (Auto) 0.300 Neut % (Auto) 66.4 Lymph % (Auto) 14.4 L [place] % (Auto) 11.9 H Eos % (Auto) 6.6 H Baso % (Auto) 0.4 Absolute Neuts (auto) 4.5 Absolute Lymphs (auto) 0.98 Nucleated RBC % 0 Sodium 139 Potassium 4.4 Chloride 109 H Carbon Dioxide 24.0 Anion Gap 6 BUN 44 H Creatinine 1.87 H Estim Creat Clear Calc 50.96 Est GFR (MDRD) Af Amer 47 L Est GFR (MDRD) Non-Af 39 L BUN/Creatinine Ratio 23.5 H Glucose 174 H Hemoglobin A1c Calcium 8.4 L Vancomycin Trough 18.8 H 05/04/19 03:05 WBC RBC Hgb Hct MCV MCH MCHC RDW Std Deviation RDW Coeff of Pool Plt Count MPV Immature Gran % (Auto) Neut % (Auto) Lymph % (Auto) [place] % (Auto) Eos % (Auto) Baso % (Auto) Absolute Neuts (auto) Absolute Lymphs (auto) Nucleated RBC % Sodium Potassium Chloride Carbon Dioxide Anion Gap BUN Creatinine Estim Creat Clear Calc Est GFR (MDRD) Af Amer Est GFR (MDRD) Non-Af BUN/Creatinine Ratio Glucose Hemoglobin A1c 9.4 H Calcium Vancomycin Trough - Other Studies Radiology: [] reviewed Other Studies: [] Route of nutrition/ use of supplements: [] Nutritional Intake: [] IV Site: [] Hernandez Catheter: [] - Physical Exam General: Alert, Oriented x3, Cooperative, No apparent distress HEENT: Atraumatic, PERRLA, EOMI Neck: Supple, No Nodes Lungs: Clear to auscultation, Normal air movement Cardiovascular: Regular rate, Regular Rhythm Abdomen: Soft, Non Tender, Non-Distended Extremities: Edema Skin: Ulcer/ Wound - reviewed photos IV Site: Peripheral, without redness Musculoskeletal: No Tenderness to Palpation of Joints or Extremities Neurological: Cranial nerves II-XII grossly intact - Assessment/Plan Antibiotics: [] Assessment/Plan: [] Active and Suspected Problems Diabetic infection of left foot (Acute) L foot DM infection, wbc improved, no fever. OR 05/02. Wound cx with staph aureus, ecoli, strep. PCR showing mssa. On vanc/cefepime. Will stop vanc. Reports hives with PCN; has received unasyn and zosyn here in the past. Will narrow cefepime to cefazolin. Plan on po abx at discharge. Will follow, thank you.
[2019-05-04 16:55] LABS: Bedside Glucose 172 mg/dL (70-110)
[2019-05-04] MEDS: Insulin Lispro 100 UNIT/ML INSULN.PEN 30 UNIT SC (18:09)
[2019-05-04] MEDS: Cefazolin 2 GM in 0.9% Normal Saline 100 ML IV (21:25)
[2019-05-05 00:11] LABS: Bedside Glucose 184 mg/dL (70-110)
[2019-05-05 00:11] LABS: Bedside Glucose 163 mg/dL (70-110)
[2019-05-05] MEDS: 0.9% Normal Saline 1,000 ML 50 ML IV (01:39)
[2019-05-05 02:00] VITALS: BP 140/78; PULSE 76; RESP 18; TEMP 37.1; O2SAT 96
[2019-05-05] MEDS: Vancomycin IV 1,000 MG/200 ML BAG 200 MG IV ×2 (03:14→16:17)
[2019-05-05 05:53] LABS: Absolute Lymphocyte Count 1.44 X10^3/uL (0.83-4.51); Absolute Neutrophil Count 4.7 X10^3/uL (2.0-7.7); Basophil# 0.05 X10^3/uL; Basophil% 0.6 % (0-1); Eosinophil# 0.56 X10^3/uL; Eosinophils% 7.2 % (0-5); Hematocrit 30.8 % (40-54); Hemoglobin 9.5 g/dL (13.0-16.5); Lymphocyte # 1.44 X10^3/ul (4.0); Lymphocyte % 18.6 % (19-41); Mean Corp Hgb Conc 30.8 g/dL (32-36); Mean Corpuscular Hgb 26.5 pg (27.0-32.0); Mean Corpuscular Volume 85.8 fL (80-94); Mean Platelet Vol. 10.3 fl (6.2-12.0); Monocyte# 0.97 X10^3/uL; Monocyte% 12.5 % (0-10); NRBC Flagged by Analyzer 0 % (0-5); Neutrophil # 4.66 X10^3/uL (2.7-7.7); Neutrophil % 60.3 % (47-70); POSITIVE MORPHOLOGY YES; Platelet Count 186 K/mm3 (150-450); RBC Distribution Width CV 14.9 % (11.6-14.6); RBC Distribution Width SD 47.1 fl (35.1-43.9); Red Blood Count 3.59 M/mm3 (4.6-6.2); White Blood Count 7.7 K/mm3 (4.4-11.0)
[2019-05-05] MEDS: Cefazolin 2 GM in 0.9% Normal Saline 100 ML IV ×2 (06:00→14:15)
[2019-05-05] MEDS: Heparin Injection (Vial) 5,000 UNIT/ML VIAL 5000 UNIT SC ×2 (06:00→14:15)
[2019-05-05 06:12] LABS: Anion Gap 7 (5-15); BUN 38 mg/dL (7-18); BUN/Creat Ratio 24.2 RATIO (10-20); Calcium,Total 8.8 mg/dL (8.5-10.1); Chloride 110 mmol/L (98-107); Creatinine, Serum 1.57 mg/dL (0.70-1.30); EST Glomerular Filtration Rate 48 mL/min (>60); Est Glom Filt Rate - Afr Amer 58 mL/min (>60); Estimated Creatinine Clearance 60.69 ml/min; Glucose 117 mg/dL (74-106); Potassium 4.4 mmol/L (3.5-5.1); Sodium Level 140 mmol/L (136-145)
[2019-05-05 06:25] LABS: Differential Indicated SCAN CRITERIA MET
[2019-05-05 06:34] LABS: Differential Comment SCANNED
[2019-05-05 06:50] LABS: Bedside Glucose 121 mg/dL (70-110)
[2019-05-05 08:00] VITALS: BP 161/59; PULSE 70; RESP 18; TEMP 36.9; O2SAT 94
--- NOTE | 2019-05-05 08:10 | PN_ITS ---
Patient Problems: Active and Suspected Problems Diabetic infection of left foot (Acute) Subjective: Patient was seen this morning for follow up on left foot, s/p debridement on 05/02/19. He has no new complaints, no fever, chills, nausea or vomiting. Planning to be discharged to [facility] today. - Physical Exam Vitals/I&O's: Vital Signs Temp Pulse Resp BP Pulse Ox 98.8 F 76 18 140/78 H 96 05/05/19 02:00 05/05/19 02:00 05/05/19 02:00 05/05/19 02:00 05/05/19 02:00 Oxygen Delivery Method Room Air Weight: 198.7 kg Body Mass Index (BMI) 51.9 Finger Stick Blood Glucose 222 Intake and Output for Last 24 Hours 05/03/19 05/04/19 05/05/19 23:59 23:59 23:59 Intake Total 4700.00 / 4700.00 3381.67 / 3681.67 1485 / 1485 Output Total 1974 / 1974 2175 / 2775 900 / 900 Balance 2725.00 / 2725.00 1206.67 / 906.67 585 / 585 General: Alert, Oriented x3, Cooperative, No apparent distress Extremities: No cyanosis, Capillary Refill Less than 3 Seconds, No Calf Tenderness, - - s/p debridement left plantar arch ulceration - tissues healthy and viable with intact margins - granular bleeding tissue, no maloder, no fluctuance, no crepitus, no remaining visible abscess to the left foot. The ulcer plantar left foot is down to subcutaneous tissue layer. Small water blisters to the anterior medial left leg and smaller wound present down to subcutaneous tissue layer w/ granular tissue and viable margins - no evidence of infection. Musculoskeletal: No Tenderness to Palpation of Joints or Extremities Psych/Mental Status: Appropriate, Alert and oriented to time, place, person, mood and affect Microbiology Past 72 Hours 05/02/19 15:10 Wound - Left Foot Gram Stain - Final 05/02/19 15:10 Wound - Left Foot Wound Culture - Preliminary Streptococcus group A Escherichia coli Staphylococcus aureus 05/02/19 15:10 Wound - Left Foot Anaerobic Culture - Preliminary Checking for anaerobes, further studies to follow. 05/02/19 18:50 Wound Abcess - Aerobic & Anaerobic Swabs Gram Stain - Final 05/02/19 18:50 Wound Abcess - Aerobic & Anaerobic Swabs Wound Culture - Preliminary No growth-Final to follow 05/02/19 18:50 Wound Abcess - Aerobic & Anaerobic Swabs Anaerobic Culture - Preliminary Checking for anaerobes, further studies to follow. Laboratory Results 05/04/19 03:05: Hemoglobin A1c 9.4 H 05/04/19 11:46: POC Glucose 184 H 05/04/19 16:41: POC Glucose 172 H 05/04/19 21:20: POC Glucose 163 H 05/05/19 05:30: WBC 7.7, RBC 3.59 L, Hgb 9.5 L, Hct 30.8 L, MCV 85.8, MCH 26.5 L , MCHC 30.8 L, RDW Std Deviation 47.1 H, RDW Coeff of Pool 14.9 H, Plt Count 186, MPV 10.3, Immature Gran % (Auto) 0.800, Neut % (Auto) 60.3, Lymph % (Auto) 18.6 L, [place] % (Auto) 12.5 H, Eos % (Auto) 7.2 H, Baso % (Auto) 0.6, Absolute Neuts (auto) 4.7, Absolute Lymphs (auto) 1.44, Nucleated RBC % 0, Differential Comment SCANNED 05/05/19 05:30: Sodium 140, Potassium 4.4, Chloride 110 H, Carbon Dioxide 23.0, Anion Gap 7, BUN 38 H, Creatinine 1.57 H, Estim Creat Clear Calc 60.69, Est GFR (MDRD) Af Amer 58 L, Est GFR (MDRD) Non-Af 48 L, BUN/Creatinine Ratio 24.2 H, Glucose 117 H, Calcium 8.8 05/05/19 06:37: POC Glucose 121 H Current Medications Acetaminophen (Tylenol) 650 mg PO Q6H PRN PRN PRN Reason: Pain Score 1-10/Temp > 100.7 F Amlodipine Besylate (Norvasc) 5 mg PO DAILY [facility] Last Admin: 05/04/19 09:10 Dose: 5 mg Documented by: Ascorbic Acid (Vitamin C) 500 mg PO DAILY@0800 [facility] Last Admin: 05/04/19 09:11 Dose: 500 mg Documented by: Aspirin (Aspirin) 325 mg PO DAILY@0800 [facility] Last Admin: 05/04/19 09:10 Dose: 325 mg Documented by: Glucagon () 1 mg IM .X1 PRN PRN Reason: Hypoglycemia Heparin Sodium (Porcine) (Heparin Na) 5,000 unit SC Q8 [facility] Last Admin: 05/05/19 06:00 Dose: 5,000 unit Documented by: Hydralazine HCl (Apresoline Iv) 10 mg IV Q4H PRN PRN PRN Reason: SBP>180, DBP>100 Hydralazine HCl (Apresoline) 50 mg PO BID [facility] Last Admin: 05/04/19 14:18 Dose: 50 mg Documented by: Sodium Chloride () 1,000 mls @ 50 mls/hr IV .Q20H [facility] Last Admin: 05/05/19 01:39 Dose: 50 mls/hr Documented by: Vancomycin IV Pharmacy to Dose (1 ea/ Sodium Chloride) 500 mls @ 250 mls/hr IV PRN PRN; Protocol PRN Reason: Rx to Dose Dextrose (Dextrose 10%-Water) 250 mls @ 999 mls/hr IV .Q16M PRN; Protocol PRN Reason: HYPOGLYCEMIA Vancomycin HCl (Vancomycin) 1,000 mg in 200 mls @ 200 mls/hr IV Q12H [facility] Last Infusion: 05/05/19 04:23 Dose: Infused Documented by: Cefazolin Sodium 2 gm/ Sodium (Chloride) 110 mls @ 150 mls/hr IV Q8 [facility] Last Infusion: 05/05/19 06:50 Dose: Infused Documented by: Insulin Glargine (Lantus (Bkc)) 50 units SC 1100,2200 [facility] Last Admin: 05/04/19 21:20 Dose: 50 u Documented by: Insulin Human Lispro (Humalog Kwikpen (Bkc)) 0 unit SC ACHS [facility]; Protocol Last Admin: 05/05/19 06:39 Dose: Not Given Documented by: Insulin Human Lispro (Humalog Kwikpen (Bkc)) 30 unit SC TIDAC [facility] Last Admin: 05/04/19 18:09 Dose: 30 units Documented by: Lisinopril (Zestril) 10 mg PO DAILY [facility] Last Admin: 05/04/19 12:03 Dose: 10 mg Documented by: Melatonin (Melatonin) 3 mg PO QHS PRN PRN PRN Reason: INSOMNIA Metoprolol Succinate (Toprol Xl (Beta Marshall)) 50 mg PO DAILY [facility] Last Admin: 05/04/19 09:10 Dose: 50 mg Documented by: Multivitamins (Multivitamin) 1 tablet PO DAILY@0800 [facility] Last Admin: 05/04/19 09:10 Dose: 1 tablet Documented by: Nutritional Formula ([facility] - Bennett Flavor) [facility] Admin: 05/04/19 16:43 Dose: 1 packet Documented by: Nystatin (Mycostatin Powder) 1 applic TOPICAL BID [facility]; Protocol Last Admin: 05/04/19 21:18 Dose: 1 applicatio Documented by: Ondansetron HCl (Zofran) 4 mg IV Q8H PRN PRN PRN Reason: NAUSEA/VOMITING Oxycodone HCl (Oxyir) 5 mg PO Q6H PRN PRN PRN Reason: Pain Score 6-10/10 Last Admin: 05/03/19 00:43 Dose: 5 mg Documented by: Polyethylene Glycol (Miralax) 17 gm PO DAILY PRN PRN PRN Reason: Constipation Last Admin: 05/04/19 12:11 Dose: 17 gm Documented by: Sodium Chloride () 10 - 40 ml IV UD PRN PRN Reason: SALINE FLUSH Throat Lozenges (Cepacol Sore Throat Lozenge) 1 lozenge MUCOUS MEM Q2H PRN PRN PRN Reason: SORE THROAT Last Admin: 05/04/19 09:42 Dose: 1 lozenge Documented by: Medical Necessity - Tobacco Use Smoking Status: Never smoker Tobacco Use: Non-smoker Assessment/Plan All Active Problems Trauma of toe of right foot (Acute) Diabetic infection of left foot (Acute) Chronic ulcer of left foot with fat layer exposed (Resolved) Blister of foot, right (Acute) Infection of right foot (Resolved) Blister (nonthermal), right lesser toe(s), initial encounter (Acute) Skin ulcer of left foot including toes, limited to breakdown of skin (Acute) Blister of left leg (Acute) Blister of right foot (Acute) Ulcer of left lower extremity with fat layer exposed (Resolved) Cellulitis of right lower extremity (Resolved) Septic joint (Acute) Non-pressure chronic ulcer of other part of left foot limited to breakdown of skin (Resolved) Cellulitis of right foot (Resolved) Infection of right foot (Resolved) Neuropathic ulcer of right heel (Acute) Cellulitis of right heel (Acute) Ulcer left foot with necrosis down to fascia layer s/p debridement on 05/02/19 Abscess left foot w/ cellulitis Right foot/heel/leg ulcerations down to subcutaneous tissue layer Left leg ulcerations Diabetes w/ neuropathy TMA left foot Reviewed diagnostic data. Left foot continues to improve. Cultures growing staph, strep and e coli. Dr. Bartlett/ID has seen patient. Wound care left foot/leg: Melgisorb with overlying gauze, kerlix and marlo dressings. Also blisters to the anterior medial leg - adaptic with overlying gauze, kerlix and marlo dressing - change daily. Right foot/heel/leg ulcerations: Melgisorb with overlying gauze, kerlix and marlo dressings. Change daily. No weightbearing left foot or right foot. Ok to d/c once discharge. Patient will need to follow up at wound center within 1 week after discharge. Diabetes and further medical management per medicine team. Podiatry will continue to follow.
--- NOTE | 2019-05-05 08:14 | DCINST_ITS ---
Weight Bearing Status: No weight bearing - No weightbearing right or left foot due to foot wounds. Call your doctor if your incision/area has: Foul Smelling Discharge Call your doctor if you observe: Fever of 101 or Higher Cleanse incision/area with: - - Wound care left foot/leg: Melgisorb with overlying gauze, kerlix and marlo dressings. Also blisters to the anterior medial leg - adaptic with overlying gauze, kerlix and marlo dressing - change daily. Right foot/heel/leg ulcerations: Melgisorb with overlying gauze, kerlix and marlo dressings. Change daily. Allergies/Adverse Reactions: Allergies ciprofloxacin [From Cipro] Allergy (Verified 05/02/19 11:37) Rash he has tolerated oral cipro in the past levofloxacin [From Levaquin] Allergy (Verified 05/02/19 11:37) Hives Penicillins Allergy (Verified 05/02/19 11:37) Hives silver Allergy (Verified 05/02/19 11:37) Rash Skin márquez and itches, rash Medications to take at Discharge Polyethylene Glycol 3350 [Miralax] 17 gm PO DAILY PRN PRN 07/30/16 Aspirin 325 mg PO DAILY@0800 06/04/17 Furosemide 40 mg PO BID 06/04/17 Insulin NPH Human Isophane [Novolin N] 40 units SQ DAILY@0800 06/04/17 Insulin Regular, Human [Novolin R] 30 unit SQ TID 06/04/17 Lisinopril [Zestril] 10 mg PO DAILY 06/04/17 Metoprolol(XL)Succ [Toprol Xl (Beta Marshall)] 50 mg PO DAILY 06/04/17 Multivitamin [Multiple Vitamins] 1 each PO DAILY 06/04/17 Amlodipine [Norvasc] 5 mg PO DAILY 05/02/19 Ascorbic Acid [Vitamin C] 500 mg PO DAILY@0800 05/02/19 Insulin NPH Human Isophane [Novolin N] 30 unit SQ DAILY@1700 05/02/19 Naproxen 500 mg PO BID PRN 05/02/19 Primary Care Physician: Ac Felix MD [Primary Care Provider] - Test Results: Test results from this visit will be discussed in further detail at your follow- up appointment, if applicable. Please Follow Up With: Gemini Hernández DPM When: follow up with Dr. Hernández at [facility] on 05/11/19
[2019-05-05] MEDS: Aspirin 325 MG Tablet PO (08:47)
[2019-05-05] MEDS: Insulin Lispro 100 UNIT/ML INSULN.PEN 30 UNIT SC ×2 (08:47→17:03)
[2019-05-05 08:48] VITALS: BP 161/59; PULSE 70
[2019-05-05] MEDS: hydrALAZINE 50 MG Tablet PO (08:48)
[2019-05-05] MEDS: Nystatin Powder 15gm Bottle 1 APPLIC TOPICAL (08:48)
[2019-05-05] MEDS: Multivitamins,Therapeutic Tablet 1 TABLET PO (08:48)
[2019-05-05] MEDS: Ascorbic Acid 500 MG Tablet PO (08:48)
[2019-05-05 08:49] VITALS: BP 161/59; PULSE 70
[2019-05-05] MEDS: amLODIPine 5 MG Tablet PO (08:49)
[2019-05-05] MEDS: Metoprolol(XL)Succ 50 MG Tablet PO (08:49)
[2019-05-05] MEDS: Lisinopril 10 MG Tablet PO (08:50)
--- NOTE | 2019-05-05 10:36 | PCM.DC ---
- Discharge Diagnoses Current Active Problems: Current Active and Chronic Problems Diabetic infection of left foot (Acute) You will use the following diet at home:: Calorie/Carbohydrate Controlled (specify 1200, 1400, etc), Cardiac Your food should be the consistency of: Regular Discharge Activity: May Not Drive Weight Bearing Status: No weight bearing - No weightbearing right or left foot due to foot wounds. Call your doctor if your incision/area has: Foul Smelling Discharge Call your doctor if you observe: Fever of 101 or Higher, Coldness, Increased Pain, Numbness or Tingling, Inability to urinate, Inability to have a bowel movement, Shortness of breath, Fainting spells, Chest pain, Calf discomfort Cleanse incision/area with: - - Wound care left foot/leg: Melgisorb with overlying gauze, kerlix and marlo dressings. Also blisters to the anterior medial leg - adaptic with overlying gauze, kerlix and marlo dressing - change daily. Right foot/heel/leg ulcerations: Melgisorb with overlying gauze, kerlix and marlo dressings. Change daily. Additional Instructions: Follow up in wound center Allergies/Adverse Reactions: Allergies ciprofloxacin [From Cipro] Allergy (Verified 05/02/19 11:37) Rash he has tolerated oral cipro in the past levofloxacin [From Levaquin] Allergy (Verified 05/02/19 11:37) Hives Penicillins Allergy (Verified 05/02/19 11:37) Hives silver Allergy (Verified 05/02/19 11:37) Rash Skin márquez and itches, rash Medications to take at Discharge Polyethylene Glycol 3350 [Miralax] 17 gm PO DAILY PRN PRN 07/30/16 Aspirin 325 mg PO DAILY@0800 06/04/17 Lisinopril [Zestril] 10 mg PO DAILY 06/04/17 Metoprolol(XL)Succ [Toprol Xl (Beta Marshall)] 50 mg PO DAILY 06/04/17 Multivitamin [Multiple Vitamins] 1 each PO DAILY 06/04/17 Ascorbic Acid [Vitamin C] 500 mg PO DAILY@0800 05/02/19 Amlodipine [Norvasc] 5 mg PO DAILY #0 05/05/19 Cefadroxil Hydrate [Duricef] 1 mg PO Q12H #20 cap 05/05/19 Furosemide 40 mg PO DAILY #0 05/05/19 Insulin NPH Human Isophane [Novolin N] 50 unit SQ DAILY@1700 #0 05/05/19 Insulin NPH Human Isophane [Novolin N] 50 units SQ DAILY@0800 #0 05/05/19 Insulin Regular, Human [Novolin R] 40 unit SQ TID #0 05/05/19 Metronidazole [Flagyl] 500 mg PO TID #30 tab 05/05/19 Nystatin Powder [Mycostatin Powder] 1 applic TOPICAL BID #1 bottle 05/05/19 hydrALAZINE [Apresoline] 50 mg PO BID #60 tab 05/05/19 The following prescriptions were given: Cefadroxil Hydrate [Duricef] 1 mg PO Q12H #20 cap Prescription Printed Metronidazole [Flagyl] 500 mg PO TID #30 tab Prescription Printed Primary Care Physician: Ac Felix MD [Primary Care Provider] - Test Results: Test results from this visit will be discussed in further detail at your follow-up appointment, if applicable. Please Follow Up With: Gemini Hernández DPM When: follow up with Dr. Hernández at [facility] on 05/11/19
[2019-05-05 11:46] LABS: Bedside Glucose 112 mg/dL (70-110)
--- NOTE | 2019-05-05 11:53 | PCM.TXEXTCAR ---
- Diet 05/02/19 15:30 Diet: Calorie Controlled Food consistency:: Regular Liquid Consistency:: Regular/Thin How many daily calories?: 2200 calorie - Routine Orders/Code Status Suppository Type: Dulcolax 10mg Suppository Frequency: Daily PRN Routine Lab Work: CBC, BMP - weekly on antibiotic - Wound(s) left foot Wound Type: Surgical Incision RIGHT FOOT AND LOWER EXT Wound Type: Stasis Ulcer KARMA BUTTOCK AND LEFT UPPER THIGH Wound Type: Pressure Injury lt thigh Wound Type: Pressure Injury Lt buttock Wound Type: Pressure Injury Right buttock Wound Type: Pressure Injury left plantar foot Wound Type: Neuropathic/Diabetic Foot Ulcer Dressing Change: Melgisorb right medial ankle Wound Type: Neuropathic/Diabetic Foot Ulcer Dressing Change: Melgisorb right 2nd toe Wound Type: Neuropathic/Diabetic Foot Ulcer Dressing Change: Melgisorb right heel Wound Type: Neuropathic/Diabetic Foot Ulcer Dressing Change: Melgisorb left lower leg Wound Type: scattered blisters/skin tears Dressing Change: Adaptic right lower leg Wound Type: scattered blisters/skin tears Dressing Change: Adaptic - Therapies Weight Bearing: Non weight bearing Physical Therapy: Eval and Treat Occupational Therapy: Eval and Treat Speech Therapy: Eval and Treat - Allergies/Procedures Done in Hospital Allergies/Adverse Reactions: Allergies ciprofloxacin [From Cipro] Allergy (Verified 05/02/19 11:37) Rash he has tolerated oral cipro in the past levofloxacin [From Levaquin] Allergy (Verified 05/02/19 11:37) Hives Penicillins Allergy (Verified 05/02/19 11:37) Hives silver Allergy (Verified 05/02/19 11:37) Rash Skin márquez and itches, rash - Type of Care/Length of Stay Estimated LOS: Convalescent Care Less Than 30 days Type of Care Needed: Skilled Rehab Potential: Good Prognosis: Good - Additional Orders/Day of Discharge Additional Orders: Follow up wound center Day of Discharge: 05/05/19 - Dietary and Speech Recommendations Dietitian Recommendations/Changes: Recommend 2200 calorie diet. Provide Vu BID w/lunch and dinner. - Follow Up Care Primary Care Physician: Ac Felix MD [Primary Care Provider] - Please Follow Up With: Gemini Hernández DPM When: follow up with Dr. Hernández at [facility] on 05/11/19 Please Follow Up With: Nabeel Alfaro MD When: for CKD stage 3
--- NOTE | 2019-05-05 11:55 | PCM.DC.SUM ---
Discharge Date and Diagnosis - Problem List Patient Problems: Active and Suspected Problems Diabetic infection of left foot (Acute) Date of Admission: 05/02/19 Date of Discharge: 05/05/19 - Primary Discharge Diagnosis Active and Suspected Problems Diabetic infection of left foot (Acute) - Secondary Discharge Diagnosis Chronic Problems Debility (Chronic) Lymphedema (Chronic) Venous insufficiency (Chronic) Peripheral vascular disease (Chronic) Tinea unguium (Chronic) Ulcer of right foot with fat layer exposed (Chronic) Ulcer of right foot with fat layer exposed (Chronic) Ulcer of right lower extremity with fat layer exposed (Chronic) Burn of leg (Chronic) Non-pressure chronic ulcer of other part of left foot with fat layer exposed (Chronic) Skin ulcer of left foot (Chronic) Hammer toe of right foot (Chronic) Skin ulcer of left foot (Chronic) Ulcer of right lower extremity with fat layer exposed (Chronic) Ulcer of left lower extremity with fat layer exposed (Chronic) Walking difficulty due to ankle and foot (Chronic) Obesity (Chronic) Lower extremity edema (Chronic) Type 2 diabetes mellitus with diabetic polyneuropathy (Chronic) Ulcer of right lower extremity with fat layer exposed (Chronic) Ulcer of left lower extremity with fat layer exposed (Chronic) Chronic ulcer of left foot with fat layer exposed (Chronic) Ulcer of right foot with fat layer exposed (Chronic) Physical deconditioning (Chronic) Ulcer of right lower extremity with fat layer exposed (Chronic) Ulcer of right lower extremity with fat layer exposed (Chronic) Chronic ulcer of left foot with fat layer exposed (Chronic) Dehiscence of amputation stump (Chronic) Type 2 diabetes mellitus with foot ulcer (Chronic) Type 2 diabetes mellitus with diabetic polyneuropathy (Chronic) Non-pressure chronic ulcer of right heel and midfoot with fat layer exposed (Chronic) Diabetic ulcer of foot with necrosis of muscle (Chronic) Malnutrition (Chronic) Obesity (Chronic) Lower extremity edema (Chronic) Ulcer of right foot with necrosis of muscle (Chronic) Diabetes mellitus with polyneuropathy (Chronic) Non-pressure chronic ulcer of right heel and midfoot with necrosis of muscle (Chronic) Diabetic foot ulcer (Chronic) Ulcer of right heel and midfoot with fat layer exposed (Chronic) Chronic ulcer of left foot with necrosis of muscle (Chronic) Diabetes mellitus with neuropathy (Chronic) Edema, lower extremity (Chronic) Hospital Course and Treatment Consultations 05/02/19 16:03 Consult: Onc/Wound/sales representative consultant Routine Comment: Operations: None Summary of Care Provided: [] This is a 63-year-old gentleman with multiple comorbidities was admitted with hemorrhagic blister on his left foot, noticed 1 day before admission. Denies fever or chills. Initial blood work shows leukocytosis 15,000 with elevated creatinine 2.18. He was found to have multiple bilateral feet ulcer. 1. Type 2 diabetic, bilateral feet and leg ulcers complicated with abscess and cellulitis with a ruptured blister with left transmetatarsal amputation with chronic peripheral neuropathy WITH PAD Preliminary wound culture obtained shows a Streptococcus group A, E. coli and Staphylococcus species: Full culture report pending. Empirically on IV vancomycin and cefepime. Previous wound cultures grew Acinetobacter, corynebacterium, MSSA, Enterobacter, and Klebsiella. ID consult requested. Patient had abscess and infection of left foot ulcer with excisional debridement of left foot. Podiatry consult reviewed Accu-Cheks are about 150-180. Insulin is dose titrated up Lower extremity arterial Doppler in July 2016 reported as left BAO, supranormal suggestive of arterial calcification/arteriosclerosis. Right BAO normal. A1c 9.4. Blood sugars are controlled, 112, 121. Insulin dose further decreased as mentioned in discharge medication list 2. JOANNA - -Baseline creatinine appears to be around 1.5, was admitted with BUN/creatinine 52/2.18. Gradually improving. Patient is on baseline creatinine. Will avoid nephrotoxic medications. 3. Hypertension: Blood pressure is slightly elevated: Titrate up the antihypertensive medication. -Continue with Norvasc, metoprolol and hold lisinopril secondary to acute kidney injury 4. Bilateral lower extremity lymphedema and morbid obesity Patient agreed for 2D echo. Patient has lower extremity lymphedema, BNP 151 but may be low secondary to morbid obesity. No echocardiogram in our system. Conservative management, leg elevation and Mateus wrap bandage. 2D echo is pending. Patient can be discharged after echo or can have echo as an outpatient and follow-up with PCP DVT prophylaxis: On heparin 5000 units subcu every 8 hourly Discharge medication reconciliation done. Discharge follow-up instructions completed. Discharge process discussed with the patient and all questions were answered to patient's satisfaction. Patient is being discharged to SNF Total time spent, exact 35 minutes on discharge meds reconciliation, examination, coordination of care with nurses and ancillary staff, review of imaging and blood test and discussion with the patient on follow-up instructions Patient Problems: Active and Suspected Problems Diabetic infection of left foot (Acute) Subjective: Patient IV fluid is discontinued. Can resume Lasix 40 mg daily from tomorrow a.m. On lisinopril 10 mg daily. BUN/creatinine stable did not go up; actually is getting better. No fever or chills. No hypoxia or tachypnea. Blood pressure is better. Objective: General: Alert, Oriented x3, Cooperative HEENT: Atraumatic, PERRLA, EOMI, Normocephalic Neck: Supple, No JVD, Negative Carotid Bruits Lungs: Clear to auscultation, No rhonchi, No wheeze, No rales, Diminished Cardiovascular: Regular rate, Regular Rhythm, Normal S1, Normal S2, No murmurs Abdomen: Bowel Sounds Present, Soft, Non Tender Extremities: Capillary Refill Less than 3 Seconds, Edema, - - Mateus wrap bandage around lower legs. Skin: Multiple ulcer in bilateral lower extremities. 1. Right heel with thickened margin. 2 Right second toe ulcer, dry, thickened skin with multiple superficial bruises/skin erosions on right leg. 3 Left leg, transmetatarsal amputation. Midfoot has large ulcer, granulation tissue on floor, Rash Present - Lower leg cellulitis, which has improved. Legs covered with Mateus wrap bandage. Musculoskeletal: Arthritic Changes Neurological: Cranial nerves II-XII grossly intact, Deep Tendon Reflexes 2+/4 and Symmetrical, Neuro grossly intact Psych/Mental Status: Normal Affect, Appropriate - Physical Exam Vitals/I&O's: Vital Signs Temp Pulse Resp BP Pulse Ox 98.4 F 70 18 161/59 H 94 05/05/19 08:00 05/05/19 08:49 05/05/19 08:00 05/05/19 08:49 05/05/19 08:00 Oxygen Delivery Method Room Air Weight: 438 lb 0.936 oz Body Mass Index (BMI) 51.9 Finger Stick Blood Glucose 222 Intake and Output for Last 24 Hours 05/03/19 05/04/19 05/05/19 23:59 23:59 23:59 Intake Total 4700.00 / 4700.00 3381.67 / 3681.67 1485 / 1485 Output Total 1974 2175 / 2775 900 / 900 Balance 2725.00 / 2725.00 1206.67 / 906.67 585 / 585 General: Alert, Oriented x3, Cooperative HEENT: Atraumatic, PERRLA, EOMI, Normocephalic Neck: Supple, No JVD, Negative Carotid Bruits Lungs: Clear to auscultation, No rhonchi, No wheeze, No rales, Diminished Cardiovascular: Regular rate, Regular Rhythm, Normal S1, Normal S2, No murmurs Abdomen: Bowel Sounds Present, Soft, Non Tender, Non-Distended Extremities: Capillary Refill Less than 3 Seconds, Edema Musculoskeletal: Arthritic Changes Neurological: Cranial nerves II-XII grossly intact, Neuro grossly intact Psych/Mental Status: Normal Affect, Appropriate Microbiology Past 72 Hours 05/02/19 18:50 Wound Abcess - Aerobic & Anaerobic Swabs Gram Stain - Final 05/02/19 18:50 Wound Abcess - Aerobic & Anaerobic Swabs Wound Culture - Preliminary Staphylococcus species Gram positive organism Gram positive vidal 05/02/19 18:50 Wound Abcess - Aerobic & Anaerobic Swabs Anaerobic Culture - Preliminary Checking for anaerobes, further studies to follow. 05/02/19 15:10 Wound - Left Foot Gram Stain - Final 05/02/19 15:10 Wound - Left Foot Wound Culture - Preliminary Streptococcus group A Escherichia coli Staphylococcus aureus 05/02/19 15:10 Wound - Left Foot Anaerobic Culture - Preliminary Checking for anaerobes, further studies to follow. Laboratory Results 05/04/19 11:46: POC Glucose 184 H 05/04/19 16:41: POC Glucose 172 H 05/04/19 21:20: POC Glucose 163 H 05/05/19 05:30: WBC 7.7, RBC 3.59 L, Hgb 9.5 L, Hct 30.8 L, MCV 85.8, MCH 26.5 L, MCHC 30.8 L, RDW Std Deviation 47.1 H, RDW Coeff of Pool 14.9 H, Plt Count 186, MPV 10.3, Immature Gran % (Auto) 0.800, Neut % (Auto) 60.3, Lymph % (Auto) 18.6 L, [place] % (Auto) 12.5 H, Eos % (Auto) 7.2 H, Baso % (Auto) 0.6, Absolute Neuts (auto) 4.7, Absolute Lymphs (auto) 1.44, Nucleated RBC % 0, Differential Comment SCANNED 05/05/19 05:30: Sodium 140, Potassium 4.4, Chloride 110 H, Carbon Dioxide 23.0, Anion Gap 7, BUN 38 H, Creatinine 1.57 H, Estim Creat Clear Calc 60.69, Est GFR (MDRD) Af Amer 58 L, Est GFR (MDRD) Non-Af 48 L, BUN/Creatinine Ratio 24.2 H, Glucose 117 H, Calcium 8.8 05/05/19 06:37: POC Glucose 121 H 05/05/19 11:09: POC Glucose 112 H Current Medications Acetaminophen (Tylenol) 650 mg PO Q6H PRN PRN PRN Reason: Pain Score 1-10/Temp > 100.7 F Amlodipine Besylate (Norvasc) 5 mg PO DAILY [facility] Last Admin: 05/05/19 08:49 Dose: 5 mg Documented by: Ascorbic Acid (Vitamin C) 500 mg PO DAILY@0800 [facility] Last Admin: 05/05/19 08:48 Dose: 500 mg Documented by: Aspirin (Aspirin) 325 mg PO DAILY@0800 [facility] Last Admin: 05/05/19 08:47 Dose: 325 mg Documented by: Glucagon () 1 mg IM .X1 PRN PRN Reason: Hypoglycemia Heparin Sodium (Porcine) (Heparin Na) 5,000 unit SC Q8 [facility] Last Admin: 05/05/19 06:00 Dose: 5,000 unit Documented by: Hydralazine HCl (Apresoline Iv) 10 mg IV Q4H PRN PRN PRN Reason: SBP>180, DBP>100 Hydralazine HCl (Apresoline) 50 mg PO BID [facility] Last Admin: 05/05/19 08:48 Dose: 50 mg Documented by: Vancomycin IV Pharmacy to Dose (1 ea/ Sodium Chloride) 500 mls @ 250 mls/hr IV PRN PRN; Protocol PRN Reason: Rx to Dose Dextrose (Dextrose 10%-Water) 250 mls @ 999 mls/hr IV .Q16M PRN; Protocol PRN Reason: HYPOGLYCEMIA Vancomycin HCl (Vancomycin) 1,000 mg in 200 mls @ 200 mls/hr IV Q12H [facility] Last Infusion: 05/05/19 04:23 Dose: Infused Documented by: Cefazolin Sodium 2 gm/ Sodium (Chloride) 110 mls @ 150 mls/hr IV Q8 [facility] Last Infusion: 05/05/19 06:50 Dose: Infused Documented by: Insulin Glargine (Lantus (Bkc)) 50 units SC 1100,2200 [facility] Last Admin: 05/04/19 21:20 Dose: 50 u Documented by: Insulin Human Lispro (Humalog Kwikpen (Bkc)) 0 unit SC ACHS [facility]; Protocol Last Admin: 05/05/19 11:26 Dose: Not Given Documented by: Insulin Human Lispro (Humalog Kwikpen (Bk)) 30 unit SC TIDAC [facility] Last Admin: 05/05/19 08:47 Dose: 30 units Documented by: Lisinopril (Zestril) 10 mg PO DAILY [facility] Last Admin: 05/05/19 08:50 Dose: 10 mg Documented by: Melatonin (Melatonin) 3 mg PO QHS PRN PRN PRN Reason: INSOMNIA Metoprolol Succinate (Toprol Xl (Beta Marshall)) 50 mg PO DAILY [facility] Last Admin: 05/05/19 08:49 Dose: 50 mg Documented by: Multivitamins (Multivitamin) 1 tablet PO DAILY@0800 [facility] Last Admin: 05/05/19 08:48 Dose: 1 tablet Documented by: Nutritional Formula (Vu - Arnold Flavor) 1 packet PO BIDCM [facility] Last Admin: 05/05/19 08:47 Dose: 1 packet Documented by: Nystatin (Mycostatin Powder) 1 applic TOPICAL BID [facility]; Protocol Last Admin: 05/05/19 08:48 Dose: 1 applicatio Documented by: Ondansetron HCl (Zofran) 4 mg IV Q8H PRN PRN PRN Reason: NAUSEA/VOMITING Oxycodone HCl (Oxyir) 5 mg PO Q6H PRN PRN PRN Reason: Pain Score 6-10/10 Last Admin: 05/03/19 00:43 Dose: 5 mg Documented by: Polyethylene Glycol (Miralax) 17 gm PO DAILY PRN PRN PRN Reason: Constipation Last Admin: 05/04/19 12:11 Dose: 17 gm Documented by: Sodium Chloride () 10 - 40 ml IV UD PRN PRN Reason: SALINE FLUSH Throat Lozenges (Cepacol Sore Throat Lozenge) 1 lozenge MUCOUS MEM Q2H PRN PRN PRN Reason: SORE THROAT Last Admin: 05/04/19 09:42 Dose: 1 lozenge Documented by: Discharge Activity: May Not Drive Weight Bearing Status: No weight bearing - No weightbearing right or left foot due to foot wounds. Call your doctor if your incision/area has: Foul Smelling Discharge Call your doctor if you observe: Fever of 101 or Higher, Coldness, Increased Pain, Numbness or Tingling, Inability to urinate, Inability to have a bowel movement, Shortness of breath, Fainting spells, Chest pain, Calf discomfort Cleanse incision/area with: - - Wound care left foot/leg: Melgisorb with overlying gauze, kerlix and mateus dressings. Also blisters to the anterior medial leg - adaptic with overlying gauze, kerlix and mateus dressing - change daily. Right foot/heel/leg ulcerations: Melgisorb with overlying gauze, kerlix and mateus dressings. Change daily. Home Medications: Medications to take at Discharge Polyethylene Glycol 3350 [Miralax] 17 gm PO DAILY PRN PRN 07/30/16 Aspirin 325 mg PO DAILY@0800 06/04/17 Lisinopril [Zestril] 10 mg PO DAILY 06/04/17 Metoprolol(XL)Succ [Toprol Xl (Beta Marshall)] 50 mg PO DAILY 06/04/17 Multivitamin [Multiple Vitamins] 1 each PO DAILY 06/04/17 Ascorbic Acid [Vitamin C] 500 mg PO DAILY@0800 05/02/19 Amlodipine [Norvasc] 5 mg PO DAILY #0 05/05/19 Cefadroxil Hydrate [Duricef] 1 mg PO Q12H #20 cap 05/05/19 Furosemide 40 mg PO DAILY #0 05/05/19 Insulin NPH Human Isophane [Novolin N] 40 unit SQ DAILY@1700 #0 05/05/19 Insulin NPH Human Isophane [Novolin N] 40 units SQ DAILY@0800 #0 05/05/19 Insulin Regular, Human [Novolin R] 30 unit SQ TID #0 05/05/19 Metronidazole [Flagyl] 500 mg PO TID #30 tab 05/05/19 Nystatin Powder [Mycostatin Powder] 1 applic TOPICAL BID #1 bottle 05/05/19 hydrALAZINE [Apresoline] 50 mg PO BID #60 tab 05/05/19 Following Prescrptions Were Given to Patient: hydrALAZINE [Apresoline] 50 mg PO BID #60 tab Transmission Status: Received by [id number] Cefadroxil Hydrate [Duricef] 1 mg PO Q12H #20 cap Prescription Printed Metronidazole [Flagyl] 500 mg PO TID #30 tab Prescription Printed Nystatin Powder [Mycostatin Powder] 1 applic TOPICAL BID #1 bottle Transmission Status: Received by [id number] Primary Care Physician: Ac Felix MD [Primary Care Provider] - Please Follow Up With: Gemini Hernández DPM When: follow up with Dr. Hernández at [facility] on 05/11/19 Please Follow Up With: Nabeel Alfaro MD When: for CKD stage 3 Medical Necessity - Tobacco Use Smoking Status: Never smoker Tobacco Use: Non-smoker Meaningful Use Info Meaningful Use Diagnoses (Choose all that apply): None applicable Code Visit Inpatient E&M: 85637 Disch Hosp
[2019-05-05] MEDS: Insulin Lispro 100 UNIT/ML INSULN.PEN 10 UNIT SC (12:32)
--- NOTE | 2019-05-05 13:52 | CASEMGMT ---
Addendum entered by Emperatriz Aldana 05/05/19 14:29: COLLEEN faxed completed discharge paperwork to [facility] including transfer to extended care facility, signed medication list and any scripts. Original in SNF folder and copy on pt's chart. COLLEEN completed [facility] in [facility]. Original placed in SNF folder and copy on pt's chart. Plan: [facility] today skilled with [facility] transporting pt via bariatric cot at 6:30pm Emperatriz WALLER, FIELD TECHNICIAN Original Note: Social Work Note COLLEEN received call from Rossana at [facility] requesting transportation be arranged before 5:00pm so [facility] wound nurse can see pt. COLLEEN placed a call to [facility], pt has to be transported via bariatric cot, and earliest [facility] can transport pt is 6:30pm. Transportation form completed and placed on SNF folder and copy on pt's chart. COLLEEN placed a call to Rossana at [facility] and updated her on transportation time and that this worker is waiting for signed medication list and then will get discharge paperwork faxed to her. Rossana states understanding. RN and pt updated on transportation time. Emperatriz WALLER, FIELD TECHNICIAN
[2019-05-05] MEDS: 0.9% Saline Lock 10 ML Syringe IV (14:15)
[2019-05-05 14:22] VITALS: BP 153/65; PULSE 79; RESP 18; TEMP 37.5; O2SAT 93
[2019-05-05] MEDS: oxyCODONE 5 MG Tablet PO (14:29)
--- NOTE | 2019-05-05 14:57 | PCM.PN.ID ---
Patient Problems: Active and Suspected Problems Diabetic infection of left foot (Acute) Subjective: Feeling better, no fever, no n/v/d. - Physical Exam Vitals/I&O's: Vital Signs Temp Pulse Resp BP Pulse Ox 99.5 F H 79 18 153/65 H 93 05/05/19 14:22 05/05/19 14:22 05/05/19 14:22 05/05/19 14:22 05/05/19 14:22 Oxygen Delivery Method Room Air Weight: 198.7 kg Body Mass Index (BMI) 51.9 Finger Stick Blood Glucose 222 Intake and Output for Last 24 Hours 05/03/19 05/04/19 05/05/19 23:59 23:59 23:59 Intake Total 4700.00 / 4700.00 3381.67 / 3681.67 2587.5 / 2587.5 Output Total 1974 2175 / 2775 1675 / 1675 Balance 2725.00 / 2725.00 1206.67 / 906.67 912.5 / 912.5 General: Alert, Cooperative, No apparent distress Lungs: Clear to auscultation, Normal air movement Cardiovascular: Regular rate, Regular Rhythm Abdomen: Soft, Non Tender, Non-Distended Skin: Ulcer/ Wound - feet wrapped Microbiology Past 72 Hours 05/02/19 18:50 Wound Abcess - Aerobic & Anaerobic Swabs Gram Stain - Final 05/02/19 18:50 Wound Abcess - Aerobic & Anaerobic Swabs Wound Culture - Preliminary Staphylococcus species Gram positive organism Gram positive vidal 05/02/19 18:50 Wound Abcess - Aerobic & Anaerobic Swabs Anaerobic Culture - Preliminary Checking for anaerobes, further studies to follow. 05/02/19 15:10 Wound - Left Foot Gram Stain - Final 05/02/19 15:10 Wound - Left Foot Wound Culture - Preliminary Streptococcus group A Escherichia coli Staphylococcus aureus 05/02/19 15:10 Wound - Left Foot Anaerobic Culture - Preliminary Checking for anaerobes, further studies to follow. Laboratory Results 05/04/19 11:46: POC Glucose 184 H 05/04/19 16:41: POC Glucose 172 H 05/04/19 21:20: POC Glucose 163 H 05/05/19 05:30: WBC 7.7, RBC 3.59 L, Hgb 9.5 L, Hct 30.8 L, MCV 85.8, MCH 26.5 L, MCHC 30.8 L, RDW Std Deviation 47.1 H, RDW Coeff of Pool 14.9 H, Plt Count 186, MPV 10.3, Immature Gran % (Auto) 0.800, Neut % (Auto) 60.3, Lymph % (Auto) 18.6 L, [place] % (Auto) 12.5 H, Eos % (Auto) 7.2 H, Baso % (Auto) 0.6, Absolute Neuts (auto) 4.7, Absolute Lymphs (auto) 1.44, Nucleated RBC % 0, Differential Comment SCANNED 05/05/19 05:30: Sodium 140, Potassium 4.4, Chloride 110 H, Carbon Dioxide 23.0, Anion Gap 7, BUN 38 H, Creatinine 1.57 H, Estim Creat Clear Calc 60.69, Est GFR (MDRD) Af Amer 58 L, Est GFR (MDRD) Non-Af 48 L, BUN/Creatinine Ratio 24.2 H, Glucose 117 H, Calcium 8.8 05/05/19 06:37: POC Glucose 121 H 05/05/19 11:09: POC Glucose 112 H Current Medications Acetaminophen (Tylenol) 650 mg PO Q6H PRN PRN PRN Reason: Pain Score 1-10/Temp > 100.7 F Amlodipine Besylate (Norvasc) 5 mg PO DAILY [facility] Last Admin: 05/05/19 08:49 Dose: 5 mg Documented by: Ascorbic Acid (Vitamin C) 500 mg PO DAILY@0800 [facility] Last Admin: 05/05/19 08:48 Dose: 500 mg Documented by: Aspirin (Aspirin) 325 mg PO DAILY@0800 [facility] Last Admin: 05/05/19 08:47 Dose: 325 mg Documented by: Glucagon () 1 mg IM .X1 PRN PRN Reason: Hypoglycemia Heparin Sodium (Porcine) (Heparin Na) 5,000 unit SC Q8 [facility] Last Admin: 05/05/19 14:15 Dose: 5,000 unit Documented by: Hydralazine HCl (Apresoline Iv) 10 mg IV Q4H PRN PRN PRN Reason: SBP>180, DBP>100 Hydralazine HCl (Apresoline) 50 mg PO BID [facility] Last Admin: 05/05/19 08:48 Dose: 50 mg Documented by: Vancomycin IV Pharmacy to Dose (1 ea/ Sodium Chloride) 500 mls @ 250 mls/hr IV PRN PRN; Protocol PRN Reason: Rx to Dose Dextrose (Dextrose 10%-Water) 250 mls @ 999 mls/hr IV .Q16M PRN; Protocol PRN Reason: HYPOGLYCEMIA Vancomycin HCl (Vancomycin) 1,000 mg in 200 mls @ 200 mls/hr IV Q12H [facility] Last Infusion: 05/05/19 04:23 Dose: Infused Documented by: Cefazolin Sodium 2 gm/ Sodium (Chloride) 110 mls @ 150 mls/hr IV Q8 [facility] Last Admin: 05/05/19 14:15 Dose: 150 mls/hr Documented by: Insulin Glargine (Lantus (Bkc)) 50 units SC 1100,2200 [facility] Last Admin: 05/05/19 12:16 Dose: 50 u Documented by: Insulin Human Lispro (Humalog Kwikpen (Bk)) 0 unit SC ACHS [facility]; Protocol Last Admin: 05/05/19 11:26 Dose: Not Given Documented by: Insulin Human Lispro (Humalog Kwikpen (Bk)) 30 unit SC TIDAC [facility] Last Admin: 05/05/19 12:23 Dose: Not Given Documented by: Lisinopril (Zestril) 10 mg PO DAILY [facility] Last Admin: 05/05/19 08:50 Dose: 10 mg Documented by: Melatonin (Melatonin) 3 mg PO QHS PRN PRN PRN Reason: INSOMNIA Metoprolol Succinate (Toprol Xl (Beta Marshall)) 50 mg PO DAILY [facility] Last Admin: 05/05/19 08:49 Dose: 50 mg Documented by: Multivitamins (Multivitamin) 1 tablet PO DAILY@0800 [facility] Last Admin: 05/05/19 08:48 Dose: 1 tablet Documented by: Nutritional Formula (Vu - [place] Flavor) 1 packet PO BIDCM [facility] Last Admin: 05/05/19 08:47 Dose: 1 packet Documented by: Nystatin (Mycostatin Powder) 1 applic TOPICAL BID [facility]; Protocol Last Admin: 05/05/19 08:48 Dose: 1 applicatio Documented by: Ondansetron HCl (Zofran) 4 mg IV Q8H PRN PRN PRN Reason: NAUSEA/VOMITING Oxycodone HCl (Oxyir) 5 mg PO Q6H PRN PRN PRN Reason: Pain Score 6-10/10 Last Admin: 05/05/19 14:29 Dose: 5 mg Documented by: Polyethylene Glycol (Miralax) 17 gm PO DAILY PRN PRN PRN Reason: Constipation Last Admin: 05/04/19 12:11 Dose: 17 gm Documented by: Sodium Chloride () 10 - 40 ml IV UD PRN PRN Reason: SALINE FLUSH Last Admin: 05/05/19 14:15 Dose: 10 ml Documented by: Throat Lozenges (Cepacol Sore Throat Lozenge) 1 lozenge MUCOUS MEM Q2H PRN PRN PRN Reason: SORE THROAT Last Admin: 05/04/19 09:42 Dose: 1 lozenge Documented by: Medical Necessity - Tobacco Use Smoking Status: Never smoker Tobacco Use: Non-smoker Route of nutrition/ use of supplements: [] Nutritional Intake: [] IV Site: [] Hernandez Catheter: [] - Assessment/Plan Antibiotics: [] Assessment/Plan: [] Active and Suspected Problems Diabetic infection of left foot (Acute) L foot DM infection, wbc improved, no fever. OR 05/02. Wound cx with MSSA, ecoli, strep. PCR showing mssa. Reports hives with PCN; has received unasyn and zosyn here in the past. On cefazolin. Ok for d/c to ECF on 10 days of duricef and flagyl. Will follow as needed
[2019-05-05 16:31] LABS: Bedside Glucose 153 mg/dL (70-110)
--- NOTE | 2019-05-05 16:45 | NURSING ---
REPORT CALLED TO HENRI @ [facility]
[2019-05-05] MEDS: Insulin Lispro 100 UNIT/ML INSULN.PEN SC (17:02)
[2019-05-05 19:43] VITALS: BP 160/54; PULSE 67; RESP 18; TEMP 37.4; O2SAT 94
== END 2019-05-05 19:45 | disposition skilled nursing facility (03) | DRG 623 ==
LOC: ED 11:55 → MS3 14:13
PROVIDERS: Podiatrist; Admitting Provider Family Medicine; Emergency Provider Emergency Medicine; PCP Family Medicine; Visit Provider Internal Medicine
PROC: 0JBR0ZZ Excision of Left Foot Subcutaneous Tissue and Fascia, Open Approach (ICD-10-PCS; principal; 2019-05-02 15:40)
DX: E11.628 Type 2 diabetes mellitus with other skin complications (principal); L03.116 Cellulitis of left lower limb; Z68.43 Body mass index [BMI] 50.0-59.9, adult; L02.612 Cutaneous abscess of left foot; N17.9 Acute kidney failure, unspecified; B00.1 Herpesviral vesicular dermatitis; I89.0 Lymphedema, not elsewhere classified; E66.01 Morbid (severe) obesity due to excess calories; I10 Essential (primary) hypertension; E11.621 Type 2 diabetes mellitus with foot ulcer; E11.42 Type 2 diabetes mellitus with diabetic polyneuropathy; B95.61 Methicillin susceptible Staphylococcus aureus infection as the cause of diseases classified elsewhere; B96.20 Unspecified Escherichia coli [E. coli] as the cause of diseases classified elsewhere; B95.0 Streptococcus, group A, as the cause of diseases classified elsewhere; I87.2 Venous insufficiency (chronic) (peripheral); B35.1 Tinea unguium; Z79.4 Long term (current) use of insulin; Z89.411 Acquired absence of right great toe; Z89.432 Acquired absence of left foot
CPT/HCPCS: 36415; 73630; 80048; 80202; 82962; 83036; 83880; 85025; 85652; 87070; 87075; 87077; 87186; 87205; 87640; 88304; 88305; 93306; 97110; 97162; 97166; 97802; 99285; J7030; J7040; J7050; Q9957; A4216; C8929

== ENCOUNTER 2019-05-11 13:00 | Outpatient (RCR) | payer MEDICARE, MEDICAID, SELFPAY ==
[2019-04-16 00:28] VITALS: BP 148/85; PULSE 55; RESP 18; TEMP 36.6
[2019-04-20 14:30] VITALS: BP 174/47; PULSE 52; RESP 20; TEMP 36.4; BMI 53.1
[2019-05-11 13:26] VITALS: BP 145/46; PULSE 57; RESP 18; TEMP 36.5; BMI 53.1
--- NOTE | 2019-05-11 23:38 | PN.PCM_ITS ---
(1) Blister of right leg Status: Acute Qualifiers: Encounter type: initial encounter Qualified Code(s): S80.821A - Blister (nonthermal), right lower leg, initial encounter Code(s): S80.821A - Blister (nonthermal), right lower leg, initial encounter (2) Lymphedema Status: Chronic Code(s): I89.0 - Lymphedema, not elsewhere classified (3) Venous insufficiency Status: Chronic Code(s): I87.2 - Venous insufficiency (chronic) (peripheral) (4) Peripheral vascular disease Status: Chronic Code(s): I73.9 - Peripheral vascular disease, unspecified (5) Ulcer of right foot with fat layer exposed Status: Chronic Code(s): L97.512 - Non-pressure chronic ulcer of other part of right foot with fat layer exposed (6) Chronic ulcer of left foot with fat layer exposed Status: Chronic Code(s): L97.522 - Non-pressure chronic ulcer of other part of left foot with fat layer exposed (7) Hammer toe of right foot Status: Chronic Code(s): M20.41 - Other hammer toe(s) (acquired), right foot (8) Blister of left leg Status: Acute Qualifiers: Encounter type: initial encounter Qualified Code(s): S80.822A - Blister (nonthermal), left lower leg, initial encounter Code(s): S80.822A - Blister (nonthermal), left lower leg, initial encounter (9) Ulcer of right lower extremity with fat layer exposed Status: Chronic Code(s): L97.912 - Non-pressure chronic ulcer of unspecified part of right lower leg with fat layer exposed (10) Ulcer of left lower extremity with fat layer exposed Status: Chronic Code(s): L97.922 - Non-pressure chronic ulcer of unspecified part of left lower leg with fat layer exposed (11) Walking difficulty due to ankle and foot Status: Chronic Code(s): R26.2 - Difficulty in walking, not elsewhere classified (12) Obesity Status: Chronic Code(s): E66.9 - Obesity, unspecified (13) Lower extremity edema Status: Chronic Code(s): R60.0 - Localized edema (14) Type 2 diabetes mellitus with diabetic polyneuropathy Status: Chronic Qualifiers: Diabetes mellitus moth exterminator insulin use: with halfway use Qualified Code(s): E11.42 - Type 2 diabetes mellitus with diabetic polyneuropathy; Z79.4 - [facility] (current) use of insulin Code(s): E11.42 - Type 2 diabetes mellitus with diabetic polyneuropathy Type of Wound Date of Service: 05/11/19 Chief Complaint: Ulcer right second toe. right leg ulcer. Multiple ulcers and leg swelling , left. Right heel ulcers. Left foot ulcer History of Wound: 63 year old male was seen for right heel ulcer with chronic osteomyelitis, right plantar heel ulcer, right forefoot ulcers and left and right leg ulcer and now with new left foot ulcer. He also has a leg blister to the right side and denies a known trauma. He also recently had emergent I & D with Dr. Koch and was placed on IV antibiotics.He resides in a residential facility at this time. He denies fever, chill, nausea, vomiting, loss of appetite. He will continue dressing as advised with Aquacel. He uses the compression pumps 2-3 times a day with significant edema reduction. He completed his vascular surgery angioplasty with Dr. Peng for the left lower extremity. He has received treatment at the lymphedema clinic as well. He uses CircAid compression wraps. He has followed with Dr. Peng as advised. He wears a right cam walker boot. Progress of Wound: Stable. new blister. new left foot ulcer with resolving infection - Physical Exam Vital Signs Temp Pulse Resp BP 97.7 F L 57 L 18 145/46 H 05/11/19 13:26 05/11/19 13:26 05/11/19 13:26 05/11/19 13:26 General: Alert, Oriented x3, Cooperative, No apparent distress HEENT: Atraumatic Extremities: No cyanosis, Capillary Refill Less than 3 Seconds, No Calf Tenderness - neg liberty and ornelas signs bilateral, Diminished Peripheral Pulses, Edema Skin: Ulcer/ Wound - no purulence, no erythema, no streaking, no leticia necrosis, no bogginess or fluctuance on palpation. no odor. new blister to right posterior leg with serous drainage only, - - skin is atrophic, thin, and hairless bilateral lower extremities Wound Measurements and Assessment WC - Nurse 1 - General Ulcer Measurement Start: 04/20/19 14:29 Freq: Status: Active Protocol: Activity Type Activity Date Activity User E-Sign Co-Sign Detail Recorded Client Recorded Date Recorded By Document 05/11/19 13:26 RB [id number] 05/11/19 13:51 RB 05/11/19 13:26 Wound Center Nurse 1 [Ulcer Assessment] #32- R HEEL -Combined with other wound No -Combined with (Name of Wound-Exactly WOUND #20 AND # as it is documented) 1 COMBINED -Current Size (cm) - Length 5 -Current Size (cm) - Width 8.4 -Current Size (cm) - Depth 0.2 -Total Square Cm 42.0 -Date of Last Picture (Recall this 05/11/19 field) -Photo Taken Yes -Epithelialization None Present -Tunneling No -Undermining/Tunneling No -Circular Undermining No -Exudate Amt Medium -Exudate Type Serosanguineous -Wound Margin Thickened -Granulation Amt Large (67-100%) -Granulation Quality Pale,[place] -Slough/Fibrin Yes -Necrosis Amt Small (1-33%) -Necrotic Tissue Type Adherent Slough -Texture (Susy-wound Skin Appearance) Assessed, Scarring -Moisture (Susy-wound Skin Appearance Assessed,Dry/ ) Scaly -Color (Susy-wound Skin Appearance) Assessed -Temperature (Susy-wound Skin No Abnormality Appearance) (Pt Warm) -Tenderness on Palpation (Susy-wound No Skin Appearance) -Ulcer Cleansing SOAPY WATER -Foul Odor after Cleansing No -Anesthetic Used 4% Lidocaine Solution #31- L PLANTAR FOOT -Combined with other wound No -Current Size (cm) - Length 6 -Current Size (cm) - Width 8 -Current Size (cm) - Depth 0.3 -Total Square Cm 48 -Date of Last Picture (Recall this 05/11/19 field) -Photo Taken Yes -Epithelialization None Present -Tunneling No -Undermining/Tunneling No -Circular Undermining No -Exudate Amt Medium -Exudate Type Serosanguineous -Wound Margin Distinct, Outline Attached -Granulation Amt Medium (34-66%) -Granulation Quality Pale,[place] -Slough/Fibrin Yes -Necrosis Amt Medium (34-66%) -Necrotic Tissue Type Adherent Slough -Texture (Susy-wound Skin Appearance) Assessed, Scarring -Moisture (Susy-wound Skin Appearance Assessed, ) Maceration,Dry/ Scaly -Color (Susy-wound Skin Appearance) Assessed -Temperature (Susy-wound Skin No Abnormality Appearance) (Pt Warm) -Tenderness on Palpation (Susy-wound No Skin Appearance) -Ulcer Cleansing SOAPY WATER -Foul Odor after Cleansing No -Anesthetic Used 4% Lidocaine Solution 30-right lateral foot -Combined with other wound No -Current Size (cm) - Length 0.1 -Current Size (cm) - Width 0.1 -Current Size (cm) - Depth 0.1 -Total Square Cm 0.01 -Photo Taken No -Epithelialization Large 67-100% -Exudate Amt None Present -Texture (Susy-wound Skin Appearance) Assessed,Callus ,Scarring -Moisture (Susy-wound Skin Appearance Assessed,Dry/ ) Scaly -Color (Susy-wound Skin Appearance) Assessed -Temperature (Susy-wound Skin No Abnormality Appearance) (Pt Warm) -Tenderness on Palpation (Susy-wound No Skin Appearance) -Ulcer Cleansing SOAPY WATER -Foul Odor after Cleansing No -Anesthetic Used 4% Lidocaine Solution 29-left anterior bernstein -Combined with other wound No -Current Size (cm) - Length 0.1 -Current Size (cm) - Width 0.1 -Current Size (cm) - Depth 0.1 -Total Square Cm 0.01 -Photo Taken No -Tunneling No -Undermining/Tunneling No -Circular Undermining No -Exudate Amt None Present -Wound Margin Flat & Intact -Granulation Amt Medium (34-66%) -Granulation Quality Red -Slough/Fibrin Yes -Necrosis Amt Medium (34-66%) -Necrotic Tissue Type Adherent Slough -Texture (Susy-wound Skin Appearance) Assessed, Scarring -Moisture (Susy-wound Skin Appearance Dry/Scaly ) -Color (Susy-wound Skin Appearance) Hemosiderin Staining -Temperature (Susy-wound Skin No Abnormality Appearance) (Pt Warm) -Tenderness on Palpation (Susy-wound No Skin Appearance) -Ulcer Cleansing SOAPY WATER -Foul Odor after Cleansing No -Anesthetic Used 4% Lidocaine Solution #28- R MEDIAL FOOT -Combined with other wound No -Current Size (cm) - Length 0.1 -Current Size (cm) - Width 0.1 -Current Size (cm) - Depth 0.1 -Total Square Cm 0.01 -Epithelialization Large 67-100% -Tunneling No -Undermining/Tunneling No -Circular Undermining No -Texture (Susy-wound Skin Appearance) Assessed,Callus ,Scarring -Moisture (Susy-wound Skin Appearance Assessed,Dry/ ) Scaly -Color (Susy-wound Skin Appearance) Assessed -Temperature (Susy-wound Skin No Abnormality Appearance) (Pt Warm) -Tenderness on Palpation (Susy-wound No Skin Appearance) -Ulcer Cleansing SOAPY WATER -Foul Odor after Cleansing No -Anesthetic Used 4% Lidocaine Solution 27-right 2nd toe -Combined with other wound No -Current Size (cm) - Length 0.1 -Current Size (cm) - Width 0.1 -Current Size (cm) - Depth 0.1 -Total Square Cm 0.01 -Photo Taken No -Epithelialization Medium 34-66% -Tunneling No -Undermining/Tunneling No -Circular Undermining No -Exudate Amt Small -Exudate Type Serosanguineous -Wound Margin Flat & Intact -Granulation Amt Small (1-33%) -Granulation Quality Pale,Red -Slough/Fibrin Yes -Necrosis Amt Large (67-100%) -Necrotic Tissue Type Adherent Slough -Texture (Susy-wound Skin Appearance) Assessed,Callus ,Scarring -Moisture (Susy-wound Skin Appearance Assessed,Dry/ ) Scaly -Color (Susy-wound Skin Appearance) Assessed -Temperature (Susy-wound Skin No Abnormality Appearance) (Pt Warm) -Tenderness on Palpation (Susy-wound No Skin Appearance) -Ulcer Cleansing SOAPY WATER -Foul Odor after Cleansing No -Anesthetic Used 4% Lidocaine Solution #21 rt plantar -Combined with other wound No -Current Size (cm) - Length 0.1 -Current Size (cm) - Width 0.1 -Current Size (cm) - Depth 0.1 -Total Square Cm 0.01 -Epithelialization Large 67-100% -Tunneling No -Undermining/Tunneling No -Circular Undermining No -Texture (Susy-wound Skin Appearance) Assessed,Callus ,Scarring -Moisture (Susy-wound Skin Appearance Assessed,Dry/ ) Scaly -Color (Susy-wound Skin Appearance) Assessed -Temperature (Susy-wound Skin No Abnormality Appearance) (Pt Warm) -Tenderness on Palpation (Susy-wound No Skin Appearance) -Ulcer Cleansing SOAPY WATER -Foul Odor after Cleansing No -Anesthetic Used 4% Lidocaine Solution 20-right posterior heel -Combined with other wound Yes -Combined with (Name of Wound-Exactly #1- R MEDIAL as it is documented) HEEL #1 right medial heel -Combined with other wound Yes -Combined with (Name of Wound-Exactly #20- R POST as it is documented) HEEL [Edema Assessment] -Lower Limb Edema Present Yes -Right Calf (cm) 50 -Right Ankle (cm) 30.2 -Left Calf (cm) 46.5 -Left Ankle (cm) 28.2 WC - Nurse 2 - General Ulcer CM Notes Start: 04/20/19 14:29 Freq: Status: Active Protocol: Activity Type Activity Date Activity User E-Sign Co-Sign Detail Recorded Client Recorded Date Recorded By Document 05/11/19 14:08 NORRIS [id number] 05/11/19 14:21 NORRIS 05/11/19 14:08 Wound Center Nurse 2 [Procedure/Treatment] #32- R HEEL -Time 14:09 -Correct Patient Yes -Correct Side, Site, Position Yes -Correct Procedure Yes -Procedure Performed Yes -Type of Procedure Debridement -Clinical Debridement Subcutaneous -Post Debridement Size (cm) - Length 5 -Post Debridement Size (cm) - Width 8.5 -Post Debridement Size (cm) - Depth 0.2 -Total Square Cm 42.5 -Wound/Ulcer Outcome Not Healed -Ulcer Cleansing Rinsed/ Irrigated with Saline -Foul Odor after Cleansing No -Bioengineered Tissue No -Bleeding Controlled with Pressure -Offloading No -Treatment Response Procedure Tolerated Well #31- L PLANTAR FOOT -Time 14:09 -Correct Patient Yes -Correct Side, Site, Position Yes -Correct Procedure Yes -Procedure Performed Yes -Type of Procedure Debridement -Clinical Debridement Subcutaneous -Post Debridement Size (cm) - Length 6.1 -Post Debridement Size (cm) - Width 8 -Post Debridement Size (cm) - Depth 0.3 -Total Square Cm 48.8 -Wound/Ulcer Outcome Not Healed -Ulcer Cleansing Rinsed/ Irrigated with Saline -Foul Odor after Cleansing No -Bioengineered Tissue No -Bleeding Controlled with Pressure -Offloading No -Treatment Response Procedure Tolerated Well 30-right lateral foot -Time 14:10 -Correct Patient No -Correct Side, Site, Position No -Correct Procedure No -Procedure Performed No -Post Debridement Size (cm) - Length 0 -Post Debridement Size (cm) - Width 0 -Post Debridement Size (cm) - Depth 0 -Total Square Cm 0 -Wound/Ulcer Outcome Healed- Epithelialized 29-left anterior bernstein -Time 14:10 -Correct Patient Yes -Correct Side, Site, Position Yes -Correct Procedure Yes -Procedure Performed Yes -Type of Procedure Debridement -Clinical Debridement Subcutaneous -Post Debridement Size (cm) - Length 1.4 -Post Debridement Size (cm) - Width 1.5 -Post Debridement Size (cm) - Depth 0.1 -Total Square Cm 2.10 -Wound/Ulcer Outcome Not Healed -Ulcer Cleansing Rinsed/ Irrigated with Saline -Foul Odor after Cleansing No -Bioengineered Tissue No -Bleeding Controlled with Pressure -Offloading No -Treatment Response Procedure Tolerated Well #28- R MEDIAL FOOT -Time 14:10 -Correct Patient No -Correct Side, Site, Position No -Correct Procedure No -Procedure Performed No -Wound/Ulcer Outcome Converted -Ulcer Cleansing Rinsed/ Irrigated with Saline -Foul Odor after Cleansing No -Bioengineered Tissue No -Bleeding Controlled with Pressure -Offloading No -Treatment Response Procedure Tolerated Well 27-right 2nd toe -Time 14:11 -Correct Patient Yes -Correct Side, Site, Position Yes -Correct Procedure Yes -Procedure Performed Yes -Type of Procedure Debridement -Clinical Debridement Subcutaneous -Post Debridement Size (cm) - Length 0.5 -Post Debridement Size (cm) - Width 0.8 -Post Debridement Size (cm) - Depth 0.1 -Total Square Cm 0.40 -Wound/Ulcer Outcome Not Healed -Ulcer Cleansing Rinsed/ Irrigated with Saline -Foul Odor after Cleansing No -Bioengineered Tissue No -Bleeding Controlled with Pressure -Offloading No -Treatment Response Procedure Tolerated Well #21 rt plantar -Time 14:12 -Correct Patient Yes -Correct Side, Site, Position Yes -Correct Procedure Yes -Procedure Performed Yes -Type of Procedure Debridement -Clinical Debridement Subcutaneous -Post Debridement Size (cm) - Length 5.8 -Post Debridement Size (cm) - Width 9 -Post Debridement Size (cm) - Depth 0.3 -Total Square Cm 52.2 -Wound/Ulcer Outcome Not Healed -Ulcer Cleansing Rinsed/ Irrigated with Saline -Foul Odor after Cleansing No -Bioengineered Tissue No -Bleeding Controlled with Pressure -Offloading No -Treatment Response Procedure Tolerated Well [See Physician Procedure note for Specifics] Pain Scale: 0-10 Numeric [Pain] -Is Patient Pain Free? Yes Musculoskeletal: No Tenderness to Palpation of Joints or Extremities, Muscle Wasting, - - deconditioned status noted Neurological: - - lack of epicritic sensation via light touch consistent with neuropathy Psych/Mental Status: Normal Affect, Appropriate Debridement Note Post-Debridement Measurements/Treatment WC - Nurse 2 - General Ulcer CM Notes Start: 04/20/19 14:29 Freq: Status: Active Protocol: Activity Type Activity Date Activity User E-Sign Co-Sign Detail Recorded Client Recorded Date Recorded By Document 04/20/19 15:11 [id number] 04/20/19 15:17 Document 05/11/19 14:08 [id number] 05/11/19 14:21 04/20/19 05/11/19 15:11 14:08 Wound Center Nurse 2 #32- R HEEL -Time 14:09 -Correct Patient Yes -Correct Side, Site, Position Yes -Correct Procedure Yes -Procedure Performed Yes -Type of Procedure Debridement -Clinical Debridement Subcutaneous -Post Debridement Size (cm) - Length 5 -Post Debridement Size (cm) - Width 8.5 -Post Debridement Size (cm) - Depth 0.2 -Total Square Cm 42.5 -Wound/Ulcer Outcome Not Healed -Ulcer Cleansing Rinsed/ Irrigated with Saline -Foul Odor after Cleansing No -Bioengineered Tissue No -Bleeding Controlled with Pressure -Offloading No -Treatment Response Procedure Tolerated Well #31- L PLANTAR FOOT -Time 14:09 -Correct Patient Yes -Correct Side, Site, Position Yes -Correct Procedure Yes -Procedure Performed Yes -Type of Procedure Debridement -Clinical Debridement Subcutaneous -Post Debridement Size (cm) - Length 6.1 -Post Debridement Size (cm) - Width 8 -Post Debridement Size (cm) - Depth 0.3 -Total Square Cm 48.8 -Wound/Ulcer Outcome Not Healed -Ulcer Cleansing Rinsed/ Irrigated with Saline -Foul Odor after Cleansing No -Bioengineered Tissue No -Bleeding Controlled with Pressure -Offloading No -Treatment Response Procedure Tolerated Well 30-right lateral foot -Time 15:12 14:10 -Correct Patient Yes No -Correct Side, Site, Position Yes No -Correct Procedure Yes No -Procedure Performed Yes No -Type of Procedure Debridement -Clinical Debridement Subcutaneous -Post Debridement Size (cm) - Length 2.1 0 -Post Debridement Size (cm) - Width 2.1 0 -Post Debridement Size (cm) - Depth 0.1 0 -Total Square Cm 4.41 0 -Wound/Ulcer Outcome Not Healed Healed- Epithelialized -Ulcer Cleansing Rinsed/ Irrigated with Saline -Foul Odor after Cleansing No -Bioengineered Tissue No -Bleeding Controlled with Pressure -Offloading Yes -Type of Offloading Surgical Shoe -Treatment Response Procedure Tolerated Well 29-left anterior bernstein -Time 15:13 14:10 -Correct Patient Yes Yes -Correct Side, Site, Position Yes Yes -Correct Procedure Yes Yes -Procedure Performed Yes Yes -Type of Procedure Debridement Debridement -Clinical Debridement Subcutaneous Subcutaneous -Post Debridement Size (cm) - Length 0.8 1.4 -Post Debridement Size (cm) - Width 0.8 1.5 -Post Debridement Size (cm) - Depth 0.1 0.1 -Total Square Cm 0.64 2.10 -Wound/Ulcer Outcome Not Healed Not Healed -Ulcer Cleansing Rinsed/ Rinsed/ Irrigated with Irrigated with Saline Saline -Foul Odor after Cleansing No No -Bioengineered Tissue No No -Bleeding Controlled with Pressure Pressure -Offloading Yes No -Type of Offloading Surgical Shoe -Treatment Response Procedure Procedure Tolerated Well Tolerated Well #28- R MEDIAL FOOT -Time 15:13 14:10 -Correct Patient Yes No -Correct Side, Site, Position Yes No -Correct Procedure Yes No -Procedure Performed Yes No -Type of Procedure Debridement -Clinical Debridement Subcutaneous -Post Debridement Size (cm) - Length 5.1 -Post Debridement Size (cm) - Width 5 -Post Debridement Size (cm) - Depth 0.1 -Total Square Cm 25.5 -Wound/Ulcer Outcome Not Healed Converted -Ulcer Cleansing Rinsed/ Rinsed/ Irrigated with Irrigated with Saline Saline -Foul Odor after Cleansing No No -Bioengineered Tissue No No -Bleeding Controlled with Pressure Pressure -Offloading Yes No -Type of Offloading Surgical Shoe -Treatment Response Procedure Procedure Tolerated Well Tolerated Well 27-right 2nd toe -Time 15:14 14:11 -Correct Patient Yes Yes -Correct Side, Site, Position Yes Yes -Correct Procedure Yes Yes -Procedure Performed Yes Yes -Type of Procedure Debridement Debridement -Clinical Debridement Subcutaneous Subcutaneous -Post Debridement Size (cm) - Length 2.2 0.5 -Post Debridement Size (cm) - Width 1.7 0.8 -Post Debridement Size (cm) - Depth 0.1 0.1 -Total Square Cm 3.74 0.40 -Wound/Ulcer Outcome Not Healed Not Healed -Ulcer Cleansing Rinsed/ Rinsed/ Irrigated with Irrigated with Saline Saline -Foul Odor after Cleansing No No -Bioengineered Tissue No No -Bleeding Controlled with Pressure Pressure -Offloading Yes No -Type of Offloading Surgical Shoe -Treatment Response Procedure Procedure Tolerated Well Tolerated Well #21 rt plantar -Time 15:14 14:12 -Correct Patient Yes Yes -Correct Side, Site, Position Yes Yes -Correct Procedure Yes Yes -Procedure Performed Yes Yes -Type of Procedure Debridement Debridement -Clinical Debridement Subcutaneous Subcutaneous -Post Debridement Size (cm) - Length 0.6 5.8 -Post Debridement Size (cm) - Width 0.6 9 -Post Debridement Size (cm) - Depth 0.2 0.3 -Total Square Cm 0.36 52.2 -Wound/Ulcer Outcome Not Healed Not Healed -Ulcer Cleansing Rinsed/ Rinsed/ Irrigated with Irrigated with Saline Saline -Foul Odor after Cleansing No No -Bioengineered Tissue No No -Bleeding Controlled with Pressure Pressure -Offloading Yes No -Type of Offloading Surgical Shoe -Treatment Response Procedure Procedure Tolerated Well Tolerated Well 20-right posterior heel -Time 15:14 -Correct Patient Yes -Correct Side, Site, Position Yes -Correct Procedure Yes -Procedure Performed Yes -Type of Procedure Debridement -Clinical Debridement Subcutaneous -Post Debridement Size (cm) - Length 4 -Post Debridement Size (cm) - Width 8.1 -Post Debridement Size (cm) - Depth 0.3 -Total Square Cm 32.4 -Wound/Ulcer Outcome Not Healed -Ulcer Cleansing Rinsed/ Irrigated with Saline -Foul Odor after Cleansing No -Bioengineered Tissue No -Bleeding Controlled with Pressure -Offloading Yes -Type of Offloading Surgical Shoe -Treatment Response Procedure Tolerated Well #1 right medial heel -Time 15:15 -Correct Patient Yes -Correct Side, Site, Position Yes -Correct Procedure Yes -Procedure Performed Yes -Type of Procedure Debridement -Clinical Debridement Subcutaneous -Post Debridement Size (cm) - Length 5.5 -Post Debridement Size (cm) - Width 10.0 -Post Debridement Size (cm) - Depth 0.2 -Total Square Cm 55.00 -Wound/Ulcer Outcome Not Healed -Ulcer Cleansing Rinsed/ Irrigated with Saline -Foul Odor after Cleansing No -Bioengineered Tissue No -Bleeding Controlled with Pressure -Offloading Yes -Type of Offloading Surgical Shoe -Treatment Response Procedure Tolerated Well Pain Scale: 0-10 Numeric Is Patient Pain Free? Yes Yes Wound debrided: plantar heel (now merged) Laterality: Right Wound Grade/Stage: grade 3 Anesthesia Used: 5% Lidocaine Gel Depth: in the subcutaneous layer Percentage of wound debrided: 100 Instrument Used: #15 blade Tissue Removed: fibrous, devitalized subcutaneous, biofilm, slough Severity: Fat Layer Exposed Amount of bleeding with debridement: Mild Bleeding Controlled with: Pressure Patient tolerated procedure well - Additional Wound Wound debrided: dorsal 2nd toe, leg Laterality: Right Wound Grade/Stage: grade 1 Type of Debridement: Excisional debridement Anesthesia Used: 5% Lidocaine Gel Depth: to muscle Percentage of wound debrided: 100 Instrument Used: #15 blade Tissue Removed: fibrous, devitalized subcutaneous, biofilm, slough Severity: Fat Layer Exposed Amount of bleeding with debridement: Mild Bleeding Controlled with: Pressure Patient tolerated procedure: Patient tolerated procedure well - Additional Wound Wound debrided: plantar foot, leg sites Laterality: Left Wound Grade/Stage: grade 1 Type of Debridement: Excisional debridement Anesthesia Used: 5% Lidocaine Gel Depth: in the subcutaneous layer Percentage of wound debrided: 100 Instrument Used: #15 blade Tissue Removed: fibrous, devitalized subcutaneous, biofilm, slough Severity: Fat Layer Exposed Amount of bleeding with debridement: Mild Bleeding Controlled with: Pressure Patient tolerated procedure: Patient tolerated procedure well Assessment/Plan Assessment: Left foot ulcer with resolving infection. Right forefoot medial plantar ulcer. right medial distal forefoot ulcer. dorsal medial right foot ulcer. left leg ulcer. right leg ulcer. Plantar posterior right heel ulcer stable. Plantar heel ulcer stable. Right second toe ulcer and new trauma. Diabetes with neuropathy. lymphedema and continued leg swelling with recent exacerbation. peripheral vacular disease. venous insufficiency. Subacute osteomyelitis right calcaneus work-up in process Plan: I discussed his case and treatment plan. Subcutaneous excisional debridement was performed to ulcer sites as noted in the nursing clinical panel to the right foot. To continue daily dressing changes with Aquacel. I recommend revisiting the work-up for osteomyelitis of the right calcaneus and sub acute manner at this time. Updated right foot x-rays were obtained to further evaluate the calcaneus and also his new injury site of the second toe. An MRI was non diagnostic for osteomyelitis. To maintain improved skin integrity by applying lac hydrin lotion to both legs daily. Continue circaid wraps bilateral legs daily; it is okay to apply tubigrip prior to application of CircAid foot wrap to better keep his wound dressings in place. To continue compression pump device daily; he is doing well with this. To proceed as previously advised with his lymphedema follow-up as advised. He is discharged from the [facility] at this time. [place] compression garments to promote improved continued edema management at a more proximal level was approved for right lower extremity use; to use as advised. To continue Lasix use as advised by primary care physician. To follow-up with primary care physician within the next month for progressive deconditioning status, edema management and also for medication refills. To complete the recommended primary care physician and physical therapy follow-up to work on deconditioning prevention and obtaining his hospital bed that was previously ordered. He is on antibiotics per infectious disease. His recent hospitalization and surgical drainage/debridement with Dr. Koch at [facility] is noted. He will also monitor for signs of worsening or development of local or systemic illness and was reassured he appears to be stable at this time. To continue with portion control for weight loss and proper glycemic control and nutritional supplementation to optimize healing. His hemoglobin A1c went from 9.0 to 7.4. To continue strict offloading to all these ulcer sites. He has a donut offloading pillow and he was advised to use this. To follow-up with Dr. Peng as advised for the recommended bilateral intervention, venous. His recent vascular intervention in the left lower extremity is noted. Also, his blister on his right leg was drained with a 15 blade scalpel after verbal consent was obtained and alcohole cleanse was performed. Only serous drainage was noted and pressure was applied. To cover with dressing and continue edema as well. All of his questions were answered. He understands he is still at risk for limb loss. To follow-up at the wound care center in 1 week or call sooner if he has any questions or concerns. He is on a palliative care program. It is noted he is at a residential facility at this time and has more help.
== END 2019-05-14 23:59 ==
LOC: WC 13:00
PROVIDERS: Family Provider Family Medicine; PCP Family Medicine; Referring Provider Podiatrist; Visit Provider Podiatrist
DX: E11.621 Type 2 diabetes mellitus with foot ulcer (principal); I87.2 Venous insufficiency (chronic) (peripheral); E11.51 Type 2 diabetes mellitus with diabetic peripheral angiopathy without gangrene; L97.522 Non-pressure chronic ulcer of other part of left foot with fat layer exposed; M20.41 Other hammer toe(s) (acquired), right foot; S80.821A Blister (nonthermal), right lower leg, initial encounter; X58.XXXA Exposure to other specified factors, initial encounter; R26.2 Difficulty in walking, not elsewhere classified; E66.9 Obesity, unspecified; R60.0 Localized edema; E11.42 Type 2 diabetes mellitus with diabetic polyneuropathy; E11.69 Type 2 diabetes mellitus with other specified complication; M86.671 Other chronic osteomyelitis, right ankle and foot; L97.512 Non-pressure chronic ulcer of other part of right foot with fat layer exposed; M86.271 Subacute osteomyelitis, right ankle and foot
CPT/HCPCS: 11042; 11045

== ENCOUNTER 2019-06-01 09:30 | Outpatient (RCR) | payer MEDICARE, MEDICAID, SELFPAY ==
[2019-05-15 00:23] VITALS: BP 145/46; PULSE 57; RESP 18; TEMP 36.5; BMI 51.9
[2019-05-18 14:03] VITALS: BP 160/73; PULSE 82; RESP 18; TEMP 37.2; BMI 51.9
--- NOTE | 2019-05-18 16:00 | PCM.WC.PN ---
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: Chronic Code(s): L97.512 - Non-pressure chronic ulcer of other part of right foot with fat layer exposed (2) Chronic ulcer of left foot with fat layer exposed Status: Chronic Code(s): L97.522 - Non-pressure chronic ulcer of other part of left foot with fat layer exposed (3) Ulcer of right lower extremity with fat layer exposed Status: Chronic Code(s): L97.912 - Non-pressure chronic ulcer of unspecified part of right lower leg with fat layer exposed (4) Walking difficulty due to ankle and foot Status: Chronic Code(s): R26.2 - Difficulty in walking, not elsewhere classified (5) Lower extremity edema Status: Chronic Code(s): R60.0 - Localized edema (6) Type 2 diabetes mellitus with diabetic polyneuropathy Status: Chronic Qualifiers: Code(s): E11.42 - Type 2 diabetes mellitus with diabetic polyneuropathy (7) Ulcer of left lower extremity with fat layer exposed Status: Chronic Code(s): L97.922 - Non-pressure chronic ulcer of unspecified part of left lower leg with fat layer exposed (8) Malnutrition Status: Chronic Code(s): E46 - Unspecified protein-calorie malnutrition Type of Wound Date of Service: 05/18/19 Chief Complaint: Ulcer right second toe. right medial forefoot ulcer reopened today. right leg ulcer (with new site today). Multiple ulcers and leg swelling , left. Right heel ulcers. Left foot ulcer History of Wound: 63 year old male was seen for right heel ulcer with chronic osteomyelitis, right plantar heel ulcer, right forefoot ulcers and left and right leg ulcer and now with new left foot ulcer. He also has a leg blister to the right side and denies a known trauma. He also recently had emergent I & D with Dr. Koch and was placed on IV antibiotics.He resides in a long term facility at this time. He denies fever, chill, nausea, vomiting, loss of appetite. He will continue dressing as advised with Aquacel. He uses the compression pumps 2-3 times a day with significant edema reduction. He completed his vascular surgery angioplasty with Dr. Peng for the left lower extremity. He has received treatment at the lymphedema clinic as well. He uses CircAid compression wraps. He has followed with Dr. Peng as advised. He wears a right cam walker boot. Progress of Wound: Stable. New right foot and leg ulcer noted - Physical Exam Vital Signs Temp Pulse Resp BP 98.9 F 82 18 160/73 H 05/18/19 14:03 05/18/19 14:03 05/18/19 14:03 05/18/19 14:03 General: Alert, Oriented x3, Cooperative, No apparent distress Extremities: No cyanosis, Capillary Refill Less than 3 Seconds, No Calf Tenderness, Diminished Peripheral Pulses, Edema Skin: Ulcer/ Wound - No purulence, erythema, streaking, odor, infection. The turned skin discontinuity to plantar medial right foot and also to the leg. The skin is hairless, atrophic, hyperpigmented and indurated. There is no indication maceration right Wound Measurements and Assessment WC - Nurse 1 - General Ulcer Measurement Start: 05/18/19 14:03 Freq: Status: Active Protocol: Activity Type Activity Date Activity User E-Sign Co-Sign Detail Recorded Client Recorded Date Recorded By Document 05/18/19 14:03 DV [id number] 05/18/19 14:55 DV 05/18/19 14:03 Wound Center Nurse 1 [Ulcer Assessment] #34 Lateral RLE -Combined with other wound No -Current Size (cm) - Length 0.7 -Current Size (cm) - Width 1.0 -Current Size (cm) - Depth 0.1 -Total Square Cm 0.70 -Date of Last Picture (Recall this 05/18/19 field) -Photo Taken Yes -Epithelialization None Present -Tunneling No -Undermining/Tunneling No -Circular Undermining No -Classification - Thickness Full Thickness without Exposed Support Structure -Exudate Amt Small -Exudate Type Serosanguineous -Wound Margin Indistinct, Non -Visible -Granulation Amt None Present (0 %) -Granulation Quality N/A -Slough/Fibrin No -Necrosis Amt Medium (34-66%) -Necrotic Tissue Type Adherent Slough -Structure Exposed None/Limited to Skin Breakdown -Texture (Susy-wound Skin Appearance) Assessed, Scarring -Moisture (Susy-wound Skin Appearance Assessed,Dry/ ) Scaly -Color (Susy-wound Skin Appearance) No Abnormality, Assessed -Temperature (Susy-wound Skin No Abnormality Appearance) (Pt Warm) -Foul Odor after Cleansing No -Anesthetic Used 4% Lidocaine Solution #33 Right Bernstein -Combined with other wound No -Current Size (cm) - Length 0.5 -Current Size (cm) - Width 0.7 -Current Size (cm) - Depth 0.1 -Total Square Cm 0.35 -Date of Last Picture (Recall this 05/18/19 field) -Photo Taken Yes -Epithelialization None Present -Tunneling No -Undermining/Tunneling No -Circular Undermining No -Classification - Thickness Full Thickness without Exposed Support Structure -Exudate Amt Medium -Exudate Type Serosanguineous -Wound Margin Indistinct, Non -Visible -Granulation Amt None Present (0 %) -Granulation Quality N/A -Slough/Fibrin Yes -Necrosis Amt Medium (34-66%) -Necrotic Tissue Type Adherent Slough -Structure Exposed None/Limited to Skin Breakdown -Texture (Susy-wound Skin Appearance) Assessed, Scarring -Moisture (Susy-wound Skin Appearance Assessed,Dry/ ) Scaly -Color (Susy-wound Skin Appearance) No Abnormality, Assessed -Temperature (Susy-wound Skin No Abnormality Appearance) (Pt Warm) -Foul Odor after Cleansing No -Anesthetic Used 4% Lidocaine Solution #32- R HEEL -Combined with other wound No -Current Size (cm) - Length 5.0 -Current Size (cm) - Width 8.2 -Current Size (cm) - Depth 0.2 -Total Square Cm 41.00 -Photo Taken No -Epithelialization None Present -Tunneling No -Undermining/Tunneling No -Circular Undermining No -Classification - Thickness Full Thickness without Exposed Support Structure -Exudate Amt Large -Exudate Type Serosanguineous -Wound Margin Indistinct, Non -Visible -Granulation Amt Small (1-33%) -Granulation Quality Pale,[place] -Slough/Fibrin Yes -Necrosis Amt Large (67-100%) -Necrotic Tissue Type Adherent Slough -Structure Exposed None/Limited to Skin Breakdown -Texture (Susy-wound Skin Appearance) Assessed, Scarring -Moisture (Susy-wound Skin Appearance Assessed, ) Weeping -Color (Susy-wound Skin Appearance) No Abnormality, Assessed -Temperature (Susy-wound Skin No Abnormality Appearance) (Pt Warm) -Tenderness on Palpation (Susy-wound No Skin Appearance) -Ulcer Cleansing Rinsed/ Irrigated with Saline -Foul Odor after Cleansing No -Anesthetic Used 4% Lidocaine Solution #31- L PLANTAR FOOT -Combined with other wound No -Current Size (cm) - Length 8.2 -Current Size (cm) - Width 5.6 -Current Size (cm) - Depth 0.4 -Total Square Cm 45.92 -Date of Last Picture (Recall this 05/18/19 field) -Photo Taken Yes -Epithelialization None Present -Tunneling No -Undermining/Tunneling No -Circular Undermining No -Exudate Amt Large -Exudate Type Serosanguineous -Wound Margin Indistinct, Non -Visible -Granulation Amt None Present (0 %) -Granulation Quality N/A -Necrosis Amt Large (67-100%) -Necrotic Tissue Type Adherent Slough -Structure Exposed None/Limited to Skin Breakdown -Texture (Susy-wound Skin Appearance) Assessed, Scarring -Moisture (Susy-wound Skin Appearance Assessed, ) Weeping -Color (Susy-wound Skin Appearance) No Abnormality, Assessed -Temperature (Susy-wound Skin No Abnormality Appearance) (Pt Warm) -Tenderness on Palpation (Susy-wound No Skin Appearance) -Foul Odor after Cleansing No -Anesthetic Used 4% Lidocaine Solution 29-left anterior bernstein -Combined with other wound No -Current Size (cm) - Length 4.0 -Current Size (cm) - Width 2.0 -Current Size (cm) - Depth 0.1 -Total Square Cm 8.00 -Photo Taken No -Epithelialization None Present -Tunneling No -Undermining/Tunneling No -Circular Undermining No -Classification - Thickness Full Thickness without Exposed Support Structure -Exudate Amt Medium -Exudate Type Serosanguineous -Wound Margin Flat & Intact -Granulation Amt Small (1-33%) -Granulation Quality Pale,Red -Slough/Fibrin Yes -Necrosis Amt Medium (34-66%) -Necrotic Tissue Type Adherent Slough -Structure Exposed None/Limited to Skin Breakdown -Texture (Susy-wound Skin Appearance) Assessed, Scarring -Moisture (Susy-wound Skin Appearance Assessed, ) Weeping -Color (Susy-wound Skin Appearance) No Abnormality, Assessed -Temperature (Susy-wound Skin No Abnormality Appearance) (Pt Warm) -Foul Odor after Cleansing No -Anesthetic Used 4% Lidocaine Solution 27-right 2nd toe -Combined with other wound No -Current Size (cm) - Length 1.9 -Current Size (cm) - Width 1.5 -Current Size (cm) - Depth 0.1 -Total Square Cm 2.85 -Photo Taken No -Epithelialization None Present -Tunneling No -Undermining/Tunneling No -Circular Undermining No -Classification - Thickness Full Thickness without Exposed Support Structure -Exudate Amt Medium -Exudate Type Serosanguineous -Wound Margin Indistinct, Non -Visible -Granulation Amt None Present (0 %) -Granulation Quality N/A -Slough/Fibrin Yes -Necrosis Amt Large (67-100%) -Necrotic Tissue Type Adherent Slough -Structure Exposed None/Limited to Skin Breakdown -Texture (Susy-wound Skin Appearance) Assessed, Scarring -Moisture (Susy-wound Skin Appearance Assessed,Dry/ ) Scaly -Color (Susy-wound Skin Appearance) No Abnormality, Assessed -Temperature (Susy-wound Skin No Abnormality Appearance) (Pt Warm) -Ulcer Cleansing Rinsed/ Irrigated with Saline -Foul Odor after Cleansing No -Anesthetic Used 4% Lidocaine Solution [Edema Assessment] -Lower Limb Edema Present Yes WC - Nurse 2 - General Ulcer CM Notes Start: 05/18/19 14:03 Freq: Status: Active Protocol: Activity Type Activity Date Activity User E-Sign Co-Sign Detail Recorded Client Recorded Date Recorded By Document 05/18/19 15:12 [id number] 05/18/19 15:22 NORRIS 05/18/19 15:12 Wound Center Nurse 2 [Procedure/Treatment] #34 Lateral RLE -Time 15:13 -Correct Patient Yes -Correct Side, Site, Position Yes -Correct Procedure Yes -Procedure Performed Yes -Type of Procedure Debridement -Clinical Debridement Subcutaneous -Post Debridement Size (cm) - Length 0.8 -Post Debridement Size (cm) - Width 1 -Post Debridement Size (cm) - Depth 0.1 -Total Square Cm 0.8 -Wound/Ulcer Outcome Not Healed -Ulcer Cleansing Rinsed/ Irrigated with Saline -Foul Odor after Cleansing No -Bioengineered Tissue No -Bleeding Controlled with Pressure -Offloading No -Treatment Response Procedure Tolerated Well #33 Right Bernstein -Time 15:14 -Correct Patient Yes -Correct Side, Site, Position Yes -Correct Procedure Yes -Procedure Performed Yes -Type of Procedure Debridement -Clinical Debridement Subcutaneous -Post Debridement Size (cm) - Length 0.5 -Post Debridement Size (cm) - Width 0.8 -Post Debridement Size (cm) - Depth 0.1 -Total Square Cm 0.40 -Wound/Ulcer Outcome Not Healed -Ulcer Cleansing Rinsed/ Irrigated with Saline -Foul Odor after Cleansing No -Bioengineered Tissue No -Bleeding Controlled with Pressure -Offloading No -Treatment Response Procedure Tolerated Well #32- R HEEL -Time 15:14 -Correct Patient Yes -Correct Side, Site, Position Yes -Correct Procedure Yes -Procedure Performed Yes -Type of Procedure Debridement -Clinical Debridement Subcutaneous -Post Debridement Size (cm) - Length 5 -Post Debridement Size (cm) - Width 8.3 -Post Debridement Size (cm) - Depth 0.2 -Total Square Cm 41.5 -Wound/Ulcer Outcome Not Healed -Ulcer Cleansing Rinsed/ Irrigated with Saline -Foul Odor after Cleansing No -Bioengineered Tissue No -Bleeding Controlled with Pressure -Offloading Yes -Type of Offloading Surgical Shoe -Treatment Response Procedure Tolerated Well #31- L PLANTAR FOOT -Time 15:20 -Correct Patient Yes -Correct Side, Site, Position Yes -Correct Procedure Yes -Procedure Performed Yes -Type of Procedure Debridement -Clinical Debridement Subcutaneous -Post Debridement Size (cm) - Length 8.2 -Post Debridement Size (cm) - Width 5.7 -Post Debridement Size (cm) - Depth 0.4 -Total Square Cm 46.74 -Wound/Ulcer Outcome Not Healed -Ulcer Cleansing Rinsed/ Irrigated with Saline -Foul Odor after Cleansing No -Bioengineered Tissue No -Bleeding Controlled with Pressure -Offloading Yes -Type of Offloading Surgical Shoe -Treatment Response Procedure Tolerated Well 29-left anterior bernstein -Time 15:20 -Correct Patient Yes -Correct Side, Site, Position Yes -Correct Procedure Yes -Procedure Performed Yes -Type of Procedure Debridement -Clinical Debridement Subcutaneous -Post Debridement Size (cm) - Length 4.0 -Post Debridement Size (cm) - Width 2.1 -Post Debridement Size (cm) - Depth 0.1 -Total Square Cm 8.40 -Wound/Ulcer Outcome Not Healed -Ulcer Cleansing Rinsed/ Irrigated with Saline -Foul Odor after Cleansing No -Bioengineered Tissue No -Bleeding Controlled with Pressure -Offloading No -Treatment Response Procedure Tolerated Well 27-right 2nd toe -Time 15:15 -Correct Patient Yes -Correct Side, Site, Position Yes -Correct Procedure Yes -Procedure Performed Yes -Type of Procedure Debridement -Clinical Debridement Subcutaneous -Post Debridement Size (cm) - Length 2.0 -Post Debridement Size (cm) - Width 1.5 -Post Debridement Size (cm) - Depth 0.1 -Total Square Cm 3.00 -Wound/Ulcer Outcome Not Healed -Ulcer Cleansing Rinsed/ Irrigated with Saline -Foul Odor after Cleansing No -Bioengineered Tissue No -Bleeding Controlled with Pressure -Offloading Yes -Type of Offloading Surgical Shoe -Treatment Response Procedure Tolerated Well #21 rt plantar medial foot -Time 15:16 -Correct Patient Yes -Correct Side, Site, Position Yes -Correct Procedure Yes -Procedure Performed Yes -Type of Procedure Debridement -Clinical Debridement Subcutaneous -Post Debridement Size (cm) - Length 1.0 -Post Debridement Size (cm) - Width 0.4 -Post Debridement Size (cm) - Depth 0.2 -Total Square Cm 0.40 -Wound/Ulcer Outcome Not Healed -Ulcer Cleansing Rinsed/ Irrigated with Saline -Foul Odor after Cleansing No -Bioengineered Tissue No -Bleeding Controlled with Pressure -Offloading No -Treatment Response Procedure Tolerated Well 20-right plantar heel -Time 15:18 -Correct Patient Yes -Correct Side, Site, Position Yes -Correct Procedure Yes -Procedure Performed Yes -Type of Procedure Debridement -Clinical Debridement Subcutaneous -Post Debridement Size (cm) - Length 5.1 -Post Debridement Size (cm) - Width 8.2 -Post Debridement Size (cm) - Depth 0.2 -Total Square Cm 41.82 -Wound/Ulcer Outcome Not Healed -Ulcer Cleansing Rinsed/ Irrigated with Saline -Foul Odor after Cleansing No -Bioengineered Tissue No -Bleeding Controlled with Pressure -Offloading Yes -Type of Offloading Surgical Shoe -Treatment Response Procedure Tolerated Well [See Physician Procedure note for Specifics] Pain Scale: 0-10 Numeric [Pain] -Is Patient Pain Free? 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 Compartment soft to palpate bilateral lower extremities Neurological: - - Lack of epicritic sensation light touch consistent with neuropathy status Psych/Mental Status: Normal Affect, Appropriate Debridement Note Post-Debridement Measurements/Treatment WC - Nurse 2 - General Ulcer CM Notes Start: 05/18/19 14:03 Freq: Status: Active Protocol: Activity Type Activity Date Activity User E-Sign Co-Sign Detail Recorded Client Recorded Date Recorded By Document 05/18/19 15:12 NORRIS [id number] 05/18/19 15:22 NORRIS 05/18/19 15:12 Wound Center Nurse 2 #34 Lateral RLE -Time 15:13 -Correct Patient Yes -Correct Side, Site, Position Yes -Correct Procedure Yes -Procedure Performed Yes -Type of Procedure Debridement -Clinical Debridement Subcutaneous -Post Debridement Size (cm) - Length 0.8 -Post Debridement Size (cm) - Width 1 -Post Debridement Size (cm) - Depth 0.1 -Total Square Cm 0.8 -Wound/Ulcer Outcome Not Healed -Ulcer Cleansing Rinsed/ Irrigated with Saline -Foul Odor after Cleansing No -Bioengineered Tissue No -Bleeding Controlled with Pressure -Offloading No -Treatment Response Procedure Tolerated Well #33 Right Bernstein -Time 15:14 -Correct Patient Yes -Correct Side, Site, Position Yes -Correct Procedure Yes -Procedure Performed Yes -Type of Procedure Debridement -Clinical Debridement Subcutaneous -Post Debridement Size (cm) - Length 0.5 -Post Debridement Size (cm) - Width 0.8 -Post Debridement Size (cm) - Depth 0.1 -Total Square Cm 0.40 -Wound/Ulcer Outcome Not Healed -Ulcer Cleansing Rinsed/ Irrigated with Saline -Foul Odor after Cleansing No -Bioengineered Tissue No -Bleeding Controlled with Pressure -Offloading No -Treatment Response Procedure Tolerated Well #32- R HEEL -Time 15:14 -Correct Patient Yes -Correct Side, Site, Position Yes -Correct Procedure Yes -Procedure Performed Yes -Type of Procedure Debridement -Clinical Debridement Subcutaneous -Post Debridement Size (cm) - Length 5 -Post Debridement Size (cm) - Width 8.3 -Post Debridement Size (cm) - Depth 0.2 -Total Square Cm 41.5 -Wound/Ulcer Outcome Not Healed -Ulcer Cleansing Rinsed/ Irrigated with Saline -Foul Odor after Cleansing No -Bioengineered Tissue No -Bleeding Controlled with Pressure -Offloading Yes -Type of Offloading Surgical Shoe -Treatment Response Procedure Tolerated Well #31- L PLANTAR FOOT -Time 15:20 -Correct Patient Yes -Correct Side, Site, Position Yes -Correct Procedure Yes -Procedure Performed Yes -Type of Procedure Debridement -Clinical Debridement Subcutaneous -Post Debridement Size (cm) - Length 8.2 -Post Debridement Size (cm) - Width 5.7 -Post Debridement Size (cm) - Depth 0.4 -Total Square Cm 46.74 -Wound/Ulcer Outcome Not Healed -Ulcer Cleansing Rinsed/ Irrigated with Saline -Foul Odor after Cleansing No -Bioengineered Tissue No -Bleeding Controlled with Pressure -Offloading Yes -Type of Offloading Surgical Shoe -Treatment Response Procedure Tolerated Well 29-left anterior bernstein -Time 15:20 -Correct Patient Yes -Correct Side, Site, Position Yes -Correct Procedure Yes -Procedure Performed Yes -Type of Procedure Debridement -Clinical Debridement Subcutaneous -Post Debridement Size (cm) - Length 4.0 -Post Debridement Size (cm) - Width 2.1 -Post Debridement Size (cm) - Depth 0.1 -Total Square Cm 8.40 -Wound/Ulcer Outcome Not Healed -Ulcer Cleansing Rinsed/ Irrigated with Saline -Foul Odor after Cleansing No -Bioengineered Tissue No -Bleeding Controlled with Pressure -Offloading No -Treatment Response Procedure Tolerated Well 27-right 2nd toe -Time 15:15 -Correct Patient Yes -Correct Side, Site, Position Yes -Correct Procedure Yes -Procedure Performed Yes -Type of Procedure Debridement -Clinical Debridement Subcutaneous -Post Debridement Size (cm) - Length 2.0 -Post Debridement Size (cm) - Width 1.5 -Post Debridement Size (cm) - Depth 0.1 -Total Square Cm 3.00 -Wound/Ulcer Outcome Not Healed -Ulcer Cleansing Rinsed/ Irrigated with Saline -Foul Odor after Cleansing No -Bioengineered Tissue No -Bleeding Controlled with Pressure -Offloading Yes -Type of Offloading Surgical Shoe -Treatment Response Procedure Tolerated Well #21 rt plantar medial foot -Time 15:16 -Correct Patient Yes -Correct Side, Site, Position Yes -Correct Procedure Yes -Procedure Performed Yes -Type of Procedure Debridement -Clinical Debridement Subcutaneous -Post Debridement Size (cm) - Length 1.0 -Post Debridement Size (cm) - Width 0.4 -Post Debridement Size (cm) - Depth 0.2 -Total Square Cm 0.40 -Wound/Ulcer Outcome Not Healed -Ulcer Cleansing Rinsed/ Irrigated with Saline -Foul Odor after Cleansing No -Bioengineered Tissue No -Bleeding Controlled with Pressure -Offloading No -Treatment Response Procedure Tolerated Well 20-right plantar heel -Time 15:18 -Correct Patient Yes -Correct Side, Site, Position Yes -Correct Procedure Yes -Procedure Performed Yes -Type of Procedure Debridement -Clinical Debridement Subcutaneous -Post Debridement Size (cm) - Length 5.1 -Post Debridement Size (cm) - Width 8.2 -Post Debridement Size (cm) - Depth 0.2 -Total Square Cm 41.82 -Wound/Ulcer Outcome Not Healed -Ulcer Cleansing Rinsed/ Irrigated with Saline -Foul Odor after Cleansing No -Bioengineered Tissue No -Bleeding Controlled with Pressure -Offloading Yes -Type of Offloading Surgical Shoe -Treatment Response Procedure Tolerated Well Pain Scale: 0-10 Numeric Is Patient Pain Free? Yes Wound debrided: plantar foot, anterior leg Laterality: Left Wound Grade/Stage: grade 1 Type of Debridement: Excisional debridement Anesthesia Used: 5% Lidocaine Gel Depth: in the subcutaneous layer Percentage of wound debrided: 100 Instrument Used: #15 blade Tissue Removed: fibrous, devitalized subcuteaneous, biofilm, slough Severity: Fat Layer Exposed Amount of bleeding with debridement: Mild Bleeding Controlled with: Pressure Patient tolerated procedure well - Additional Wound Wound debrided: plantar medial foot, anterior leg, lateral leg, dorsal second toe Laterality: Right Wound Grade/Stage: grade 1 Type of Debridement: Excisional debridement Anesthesia Used: 5% Lidocaine Gel Depth: in the subcutaneous layer Percentage of wound debrided: 100 Instrument Used: #15 blade Tissue Removed: fibrous, devitalized subcuteaneous, biofilm, slough Severity: Fat Layer Exposed Amount of bleeding with debridement: Mild Bleeding Controlled with: Pressure Patient tolerated procedure: Patient tolerated procedure well - Additional Wound Wound debrided: plantar heel Laterality: Right Wound Grade/Stage: grade 3 Type of Debridement: Excisional debridement Anesthesia Used: 5% Lidocaine Gel Depth: in the subcutaneous layer Percentage of wound debrided: 100 Instrument Used: #15 blade Tissue Removed: fibrous, devitalized subcuteaneous, biofilm, slough Severity: Fat Layer Exposed Amount of bleeding with debridement: Mild Bleeding Controlled with: Pressure Patient tolerated procedure: Patient tolerated procedure well Assessment/Plan Assessment: Left foot ulcer with resolving infection. Right forefoot medial plantar ulcer return. left leg ulcer. right leg ulcer. Right heel ulcer stable. Right leg ulcer including a new 1 today. Left leg ulcer. Diabetes with neuropathy. lymphedema and continued leg swelling with recent exacerbation. peripheral vacular disease. venous insufficiency. Subacute osteomyelitis right calcaneus work-up in process Plan: I discussed his case and treatment plan. Subcutaneous excisional debridement was performed to ulcer sites as noted in the nursing clinical panel to the right foot. To continue daily dressing changes with Aquacel. The new ulcer sites are noted and I also recommend Aquacel is applied to the sites as well. I recommend revisiting the work-up for osteomyelitis of the right calcaneus and sub acute manner at this time. Updated right foot x-rays were obtained to further evaluate the calcaneus and also his new injury site of the second toe. An MRI was non diagnostic for osteomyelitis. To maintain improved skin integrity by applying lac hydrin lotion to both legs daily. Continue circaid wraps bilateral legs daily; it is okay to apply tubigrip prior to application of CircAid foot wrap to better keep his wound dressings in place. To continue compression pump device daily; he is doing well with this. To proceed as previously advised with his lymphedema follow-up as advised. He is [facility] from the [facility] at this time. Farrow compression garments to promote improved continued edema management at a more proximal level was approved for right lower extremity use; to use as advised. To continue Lasix use as advised by primary care physician. To follow-up with primary care physician within the next month for progressive deconditioning status, edema management and also for medication refills. To complete the recommended primary care physician and physical therapy follow-up to work on deconditioning prevention and obtaining his hospital bed that was previously ordered. He is on antibiotics per infectious disease. His recent hospitalization and surgical drainage/debridement with Dr. Koch at [facility] is noted. He will also monitor for signs of worsening or development of local or systemic illness and was reassured he appears to be stable at this time. To continue with portion control for weight loss and proper glycemic control and nutritional supplementation to optimize healing. His hemoglobin A1c went from 9.0 to 7.4. To continue strict offloading to all these ulcer sites. He has a donut offloading pillow and he was advised to use this. To follow-up with Dr. Peng as advised for the recommended bilateral intervention, venous. His recent vascular intervention in the left lower extremity is noted. Also, his blister on his right leg was drained with a 15 blade scalpel after verbal consent was obtained and alcohole cleanse was performed. Only serous drainage was noted and pressure was applied. To cover with dressing and continue edema as well. All of his questions were answered. He understands he is still at risk for limb loss. To follow-up at the wound care center in 1 week or call sooner if he has any questions or concerns. He is on a palliative care program. It is noted he is at a long term facility at this time and has more help.
[2019-05-25 09:35] VITALS: BP 160/73; PULSE 63; RESP 18; TEMP 36.1; BMI 51.9
--- NOTE | 2019-05-25 11:59 | PCM.WC.PN ---
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: Chronic Code(s): L97.512 - Non-pressure chronic ulcer of other part of right foot with fat layer exposed (2) Chronic ulcer of left foot with fat layer exposed Status: Chronic Code(s): L97.522 - Non-pressure chronic ulcer of other part of left foot with fat layer exposed (3) Ulcer of right lower extremity with fat layer exposed Status: Chronic Code(s): L97.912 - Non-pressure chronic ulcer of unspecified part of right lower leg with fat layer exposed (4) Walking difficulty due to ankle and foot Status: Chronic Code(s): R26.2 - Difficulty in walking, not elsewhere classified (5) Lower extremity edema Status: Chronic Code(s): R60.0 - Localized edema (6) Type 2 diabetes mellitus with diabetic polyneuropathy Status: Chronic Qualifiers: Code(s): E11.42 - Type 2 diabetes mellitus with diabetic polyneuropathy (7) Ulcer of left lower extremity with fat layer exposed Status: Chronic Code(s): L97.922 - Non-pressure chronic ulcer of unspecified part of left lower leg with fat layer exposed (8) Malnutrition Status: Chronic Code(s): E46 - Unspecified protein-calorie malnutrition Type of Wound Date of Service: 05/25/19 Chief Complaint: Ulcer right second toe. right medial forefoot ulcer. right leg ulcer. Multiple ulcers and leg swelling , left. Right heel ulcers. Left foot ulcer. left leg ulcer History of Wound: 63 year old male was seen for right heel ulcer with chronic osteomyelitis, right plantar heel ulcer, right forefoot ulcers and left and right leg ulcer and now with new left foot ulcer. He also has a leg blister to the right side and denies a known trauma. He also recently had emergent I & D with Dr. Koch and was placed on IV antibiotics.He resides in a snf facility at this time. He denies fever, chill, nausea, vomiting, loss of appetite. He will continue dressing as advised with Aquacel. He uses the compression pumps 2-3 times a day with significant edema reduction. He completed his vascular surgery angioplasty with Dr. Peng for the left lower extremity. He has received treatment at the lymphedema clinic as well. He uses CircAid compression wraps. He has followed with Dr. Peng as advised. He wears a right cam walker boot. Progress of Wound: Stable - Physical Exam Vital Signs Temp Pulse Resp BP 97 F L 63 18 160/73 H 05/25/19 09:35 05/25/19 09:35 05/25/19 09:35 05/25/19 09:35 General: Alert, Oriented x3, Cooperative, No apparent distress Extremities: No cyanosis, Capillary Refill Less than 3 Seconds, No Calf Tenderness, Diminished Peripheral Pulses, Edema - decreased bilateral lower extremities Skin: Ulcer/ Wound - No purulence, erythema, streaking, odor, infection bilateral lower extremities. His skin is atrophic and hairless Wound Measurements and Assessment WC - Nurse 1 - General Ulcer Measurement Start: 05/18/19 14:03 Freq: Status: Active Protocol: Activity Type Activity Date Activity User E-Sign Co-Sign Detail Recorded Client Recorded Date Recorded By Document 05/25/19 09:35 RB [id number] 05/25/19 09:51 RB 05/25/19 09:35 Wound Center Nurse 1 [Ulcer Assessment] #34 Lateral RLE -Combined with other wound No -Current Size (cm) - Length 1 -Current Size (cm) - Width 0.8 -Current Size (cm) - Depth 0.1 -Total Square Cm 0.8 -Tunneling No -Undermining/Tunneling No -Circular Undermining No -Exudate Amt Small -Exudate Type Serosanguineous -Wound Margin Flat & Intact -Granulation Amt Medium (34-66%) -Granulation Quality Red -Slough/Fibrin Yes -Necrosis Amt Medium (34-66%) -Necrotic Tissue Type Adherent Slough -Structure Exposed N/A -Texture (Susy-wound Skin Appearance) Assessed -Moisture (Susy-wound Skin Appearance Assessed,Dry/ ) Scaly -Color (Susy-wound Skin Appearance) Assessed -Temperature (Susy-wound Skin No Abnormality Appearance) (Pt Warm) -Tenderness on Palpation (Susy-wound No Skin Appearance) -Ulcer Cleansing Wound Cleanser -Foul Odor after Cleansing No -Anesthetic Used 4% Lidocaine Solution #33 Right Bernstein -Combined with other wound No -Current Size (cm) - Length 0.5 -Current Size (cm) - Width 0.5 -Current Size (cm) - Depth 0.1 -Total Square Cm 0.25 -Tunneling No -Undermining/Tunneling No -Circular Undermining No -Exudate Amt Small -Exudate Type Serosanguineous -Wound Margin Flat & Intact -Granulation Amt Medium (34-66%) -Granulation Quality Red -Slough/Fibrin Yes -Necrosis Amt Medium (34-66%) -Necrotic Tissue Type Adherent Slough -Structure Exposed N/A -Texture (Susy-wound Skin Appearance) Assessed -Moisture (Susy-wound Skin Appearance Dry/Scaly ) -Color (Susy-wound Skin Appearance) Assessed -Temperature (Susy-wound Skin No Abnormality Appearance) (Pt Warm) -Tenderness on Palpation (Susy-wound No Skin Appearance) -Ulcer Cleansing Wound Cleanser -Foul Odor after Cleansing No -Anesthetic Used 4% Lidocaine Solution #32- R HEEL -Combined with other wound No -Current Size (cm) - Length 5 -Current Size (cm) - Width 7 -Current Size (cm) - Depth 0.1 -Total Square Cm 35 -Tunneling No -Undermining/Tunneling No -Circular Undermining No -Exudate Amt Small -Exudate Type Serosanguineous -Wound Margin Flat & Intact -Granulation Amt Medium (34-66%) -Granulation Quality Red -Slough/Fibrin Yes -Necrosis Amt Medium (34-66%) -Necrotic Tissue Type Adherent Slough -Structure Exposed N/A -Texture (Susy-wound Skin Appearance) Assessed -Moisture (Susy-wound Skin Appearance Dry/Scaly ) -Color (Susy-wound Skin Appearance) Assessed -Temperature (Susy-wound Skin No Abnormality Appearance) (Pt Warm) -Tenderness on Palpation (Susy-wound No Skin Appearance) -Ulcer Cleansing Wound Cleanser -Foul Odor after Cleansing No -Anesthetic Used 4% Lidocaine Solution #31- L PLANTAR FOOT -Combined with other wound No -Current Size (cm) - Length 5.5 -Current Size (cm) - Width 7 -Current Size (cm) - Depth 0.2 -Total Square Cm 38.5 -Tunneling No -Undermining/Tunneling No -Circular Undermining No -Exudate Amt Small -Exudate Type Serosanguineous -Wound Margin Flat & Intact -Granulation Amt Medium (34-66%) -Granulation Quality Red -Slough/Fibrin Yes -Necrosis Amt Medium (34-66%) -Necrotic Tissue Type Adherent Slough -Structure Exposed N/A -Texture (Susy-wound Skin Appearance) Assessed -Moisture (Susy-wound Skin Appearance Dry/Scaly ) -Color (Susy-wound Skin Appearance) Assessed -Temperature (Susy-wound Skin No Abnormality Appearance) (Pt Warm) -Tenderness on Palpation (Susy-wound No Skin Appearance) -Ulcer Cleansing Wound Cleanser -Foul Odor after Cleansing No -Anesthetic Used 4% Lidocaine Solution 29-left anterior bernstein -Combined with other wound No -Current Size (cm) - Length 0.1 -Current Size (cm) - Width 0.1 -Current Size (cm) - Depth 0.1 -Total Square Cm 0.01 -Tunneling No -Undermining/Tunneling No -Circular Undermining No -Exudate Amt Small -Exudate Type Serosanguineous -Wound Margin Flat & Intact -Granulation Amt Medium (34-66%) -Granulation Quality Red -Slough/Fibrin Yes -Necrosis Amt Small (1-33%) -Necrotic Tissue Type Adherent Slough -Structure Exposed N/A -Texture (Susy-wound Skin Appearance) Assessed -Moisture (Susy-wound Skin Appearance Dry/Scaly ) -Color (Susy-wound Skin Appearance) Assessed -Temperature (Susy-wound Skin No Abnormality Appearance) (Pt Warm) -Tenderness on Palpation (Susy-wound No Skin Appearance) -Ulcer Cleansing Wound Cleanser -Foul Odor after Cleansing No -Anesthetic Used 4% Lidocaine Solution 27-right 2nd toe -Combined with other wound No -Current Size (cm) - Length 1.5 -Current Size (cm) - Width 1.3 -Current Size (cm) - Depth 0.1 -Total Square Cm 1.95 -Tunneling No -Undermining/Tunneling No -Circular Undermining No -Exudate Amt Small -Exudate Type Serosanguineous -Wound Margin Flat & Intact -Granulation Amt Medium (34-66%) -Granulation Quality Red -Slough/Fibrin Yes -Necrosis Amt Small (1-33%) -Necrotic Tissue Type Adherent Slough -Structure Exposed N/A -Texture (Susy-wound Skin Appearance) Assessed -Moisture (Ussy-wound Skin Appearance Assessed,Dry/ ) Scaly -Color (Susy-wound Skin Appearance) Assessed -Temperature (Susy-wound Skin No Abnormality Appearance) (Pt Warm) -Tenderness on Palpation (Susy-wound No Skin Appearance) -Ulcer Cleansing Wound Cleanser -Foul Odor after Cleansing No -Anesthetic Used 4% Lidocaine Solution #21 rt plantar medial foot -Combined with other wound No -Current Size (cm) - Length 1 -Current Size (cm) - Width 0.5 -Current Size (cm) - Depth 0.1 -Total Square Cm 0.5 -Tunneling No -Undermining/Tunneling No -Circular Undermining No -Exudate Amt Small -Exudate Type Serosanguineous -Wound Margin Flat & Intact -Granulation Amt Medium (34-66%) -Granulation Quality Red -Slough/Fibrin Yes -Necrosis Amt Medium (34-66%) -Necrotic Tissue Type Adherent Slough -Structure Exposed N/A -Texture (Susy-wound Skin Appearance) Assessed -Moisture (Susy-wound Skin Appearance Dry/Scaly ) -Color (Susy-wound Skin Appearance) Assessed -Temperature (Susy-wound Skin No Abnormality Appearance) (Pt Warm) -Tenderness on Palpation (Susy-wound No Skin Appearance) -Ulcer Cleansing Wound Cleanser -Foul Odor after Cleansing No -Anesthetic Used 4% Lidocaine Solution [Edema Assessment] -Lower Limb Edema Present Yes -Right Calf (cm) 48 -Right Ankle (cm) 27 -Left Calf (cm) 47 -Left Ankle (cm) 28 WC - Nurse 2 - General Ulcer CM Notes Start: 05/18/19 14:03 Freq: Status: Active Protocol: Activity Type Activity Date Activity User E-Sign Co-Sign Detail Recorded Client Recorded Date Recorded By Document 05/25/19 10:12 RB [id number] 05/25/19 10:14 RB 05/25/19 10:12 Wound Center Nurse 2 [Procedure/Treatment] #34 Lateral RLE -Time 10:12 -Correct Patient Yes -Correct Side, Site, Position Yes -Correct Procedure Yes -Procedure Performed Yes -Type of Procedure Debridement -Clinical Debridement Subcutaneous -Post Debridement Size (cm) - Length 1 -Post Debridement Size (cm) - Width 0.9 -Post Debridement Size (cm) - Depth 0.1 -Total Square Cm 0.9 -Wound/Ulcer Outcome Not Healed -Ulcer Cleansing Rinsed/ Irrigated with Saline -Foul Odor after Cleansing No -Bioengineered Tissue No -Bleeding Controlled with Pressure -Offloading No -Treatment Response Procedure Tolerated Well #33 Right Bernstein -Time 10:12 -Correct Patient Yes -Correct Side, Site, Position Yes -Correct Procedure Yes -Procedure Performed Yes -Type of Procedure Debridement -Clinical Debridement Subcutaneous -Post Debridement Size (cm) - Length 0.6 -Post Debridement Size (cm) - Width 0.6 -Post Debridement Size (cm) - Depth 0.1 -Total Square Cm 0.36 -Wound/Ulcer Outcome Not Healed -Ulcer Cleansing Rinsed/ Irrigated with Saline -Foul Odor after Cleansing No -Bioengineered Tissue No -Bleeding Controlled with Pressure -Offloading No -Treatment Response Procedure Tolerated Well #32- R HEEL -Time 10:12 -Correct Patient Yes -Correct Side, Site, Position Yes -Correct Procedure Yes -Procedure Performed Yes -Type of Procedure Debridement -Clinical Debridement Subcutaneous -Post Debridement Size (cm) - Length 5.1 -Post Debridement Size (cm) - Width 7 -Post Debridement Size (cm) - Depth 0.1 -Total Square Cm 35.7 -Wound/Ulcer Outcome Not Healed -Ulcer Cleansing Rinsed/ Irrigated with Saline -Foul Odor after Cleansing No -Bioengineered Tissue No -Bleeding Controlled with Pressure -Offloading No -Treatment Response Procedure Tolerated Well #31- L PLANTAR FOOT -Time 10:13 -Correct Patient Yes -Correct Side, Site, Position Yes -Correct Procedure Yes -Procedure Performed Yes -Type of Procedure Debridement -Clinical Debridement Subcutaneous -Post Debridement Size (cm) - Length 5.6 -Post Debridement Size (cm) - Width 7 -Post Debridement Size (cm) - Depth 0.2 -Total Square Cm 39.2 -Wound/Ulcer Outcome Not Healed -Ulcer Cleansing Rinsed/ Irrigated with Saline -Foul Odor after Cleansing No -Bioengineered Tissue No -Bleeding Controlled with Pressure -Offloading No -Treatment Response Procedure Tolerated Well 29-left anterior bernstein -Time 10:13 -Correct Patient Yes -Correct Side, Site, Position Yes -Correct Procedure Yes -Procedure Performed Yes -Type of Procedure Debridement -Clinical Debridement Subcutaneous -Post Debridement Size (cm) - Length 0.2 -Post Debridement Size (cm) - Width 0.2 -Post Debridement Size (cm) - Depth 0.1 -Total Square Cm 0.04 -Wound/Ulcer Outcome Not Healed -Ulcer Cleansing Rinsed/ Irrigated with Saline -Foul Odor after Cleansing No -Bioengineered Tissue No -Bleeding Controlled with Pressure -Offloading No -Treatment Response Procedure Tolerated Well 27-right 2nd toe -Time 10:13 -Correct Patient Yes -Correct Side, Site, Position Yes -Correct Procedure Yes -Procedure Performed Yes -Type of Procedure Debridement -Clinical Debridement Subcutaneous -Post Debridement Size (cm) - Length 1.6 -Post Debridement Size (cm) - Width 1.4 -Post Debridement Size (cm) - Depth 0.1 -Total Square Cm 2.24 -Wound/Ulcer Outcome Not Healed -Ulcer Cleansing Rinsed/ Irrigated with Saline -Foul Odor after Cleansing No -Bioengineered Tissue No -Bleeding Controlled with Pressure -Offloading No -Treatment Response Procedure Tolerated Well #21 rt plantar medial foot -Time 10:14 -Correct Patient Yes -Correct Side, Site, Position Yes -Correct Procedure Yes -Procedure Performed Yes -Type of Procedure Debridement -Clinical Debridement Subcutaneous -Post Debridement Size (cm) - Length 1.0 -Post Debridement Size (cm) - Width 0.6 -Post Debridement Size (cm) - Depth 0.1 -Total Square Cm 0.60 -Wound/Ulcer Outcome Not Healed -Ulcer Cleansing Rinsed/ Irrigated with Saline -Foul Odor after Cleansing No -Bioengineered Tissue No -Bleeding Controlled with Pressure -Offloading No -Treatment Response Procedure Tolerated Well [See Physician Procedure note for Specifics] Pain Scale: 0-10 Numeric [Pain] -Is Patient Pain Free? Yes Musculoskeletal: No Tenderness to Palpation of Joints or Extremities, Muscle Wasting Neurological: - - Lack of normal epicritic sensation light touch is consistent with neuropathy Psych/Mental Status: Normal Affect, Appropriate Debridement Note Post-Debridement Measurements/Treatment WC - Nurse 2 - General Ulcer CM Notes Start: 05/18/19 14:03 Freq: Status: Active Protocol: Activity Type Activity Date Activity User E-Sign Co-Sign Detail Recorded Client Recorded Date Recorded By Document 05/18/19 15:12 JF [id number] 05/18/19 15:22 JF Document 05/25/19 10:12 RB [id number] 05/25/19 10:14 RB 05/18/19 05/25/19 15:12 10:12 Wound Center Nurse 2 #34 Lateral RLE -Time 15:13 10:12 -Correct Patient Yes Yes -Correct Side, Site, Position Yes Yes -Correct Procedure Yes Yes -Procedure Performed Yes Yes -Type of Procedure Debridement Debridement -Clinical Debridement Subcutaneous Subcutaneous -Post Debridement Size (cm) - Length 0.8 1 -Post Debridement Size (cm) - Width 1 0.9 -Post Debridement Size (cm) - Depth 0.1 0.1 -Total Square Cm 0.8 0.9 -Wound/Ulcer Outcome Not Healed Not Healed -Ulcer Cleansing Rinsed/ Rinsed/ Irrigated with Irrigated with Saline Saline -Foul Odor after Cleansing No No -Bioengineered Tissue No No -Bleeding Controlled with Pressure Pressure -Offloading No No -Treatment Response Procedure Procedure Tolerated Well Tolerated Well #33 Right Bernstein -Time 15:14 10:12 -Correct Patient Yes Yes -Correct Side, Site, Position Yes Yes -Correct Procedure Yes Yes -Procedure Performed Yes Yes -Type of Procedure Debridement Debridement -Clinical Debridement Subcutaneous Subcutaneous -Post Debridement Size (cm) - Length 0.5 0.6 -Post Debridement Size (cm) - Width 0.8 0.6 -Post Debridement Size (cm) - Depth 0.1 0.1 -Total Square Cm 0.40 0.36 -Wound/Ulcer Outcome Not Healed Not Healed -Ulcer Cleansing Rinsed/ Rinsed/ Irrigated with Irrigated with Saline Saline -Foul Odor after Cleansing No No -Bioengineered Tissue No No -Bleeding Controlled with Pressure Pressure -Offloading No No -Treatment Response Procedure Procedure Tolerated Well Tolerated Well #32- R HEEL -Time 15:14 10:12 -Correct Patient Yes Yes -Correct Side, Site, Position Yes Yes -Correct Procedure Yes Yes -Procedure Performed Yes Yes -Type of Procedure Debridement Debridement -Clinical Debridement Subcutaneous Subcutaneous -Post Debridement Size (cm) - Length 5 5.1 -Post Debridement Size (cm) - Width 8.3 7 -Post Debridement Size (cm) - Depth 0.2 0.1 -Total Square Cm 41.5 35.7 -Wound/Ulcer Outcome Not Healed Not Healed -Ulcer Cleansing Rinsed/ Rinsed/ Irrigated with Irrigated with Saline Saline -Foul Odor after Cleansing No No -Bioengineered Tissue No No -Bleeding Controlled with Pressure Pressure -Offloading Yes No -Type of Offloading Surgical Shoe -Treatment Response Procedure Procedure Tolerated Well Tolerated Well #31- L PLANTAR FOOT -Time 15:20 10:13 -Correct Patient Yes Yes -Correct Side, Site, Position Yes Yes -Correct Procedure Yes Yes -Procedure Performed Yes Yes -Type of Procedure Debridement Debridement -Clinical Debridement Subcutaneous Subcutaneous -Post Debridement Size (cm) - Length 8.2 5.6 -Post Debridement Size (cm) - Width 5.7 7 -Post Debridement Size (cm) - Depth 0.4 0.2 -Total Square Cm 46.74 39.2 -Wound/Ulcer Outcome Not Healed Not Healed -Ulcer Cleansing Rinsed/ Rinsed/ Irrigated with Irrigated with Saline Saline -Foul Odor after Cleansing No No -Bioengineered Tissue No No -Bleeding Controlled with Pressure Pressure -Offloading Yes No -Type of Offloading Surgical Shoe -Treatment Response Procedure Procedure Tolerated Well Tolerated Well 29-left anterior bernstein -Time 15:20 10:13 -Correct Patient Yes Yes -Correct Side, Site, Position Yes Yes -Correct Procedure Yes Yes -Procedure Performed Yes Yes -Type of Procedure Debridement Debridement -Clinical Debridement Subcutaneous Subcutaneous -Post Debridement Size (cm) - Length 4.0 0.2 -Post Debridement Size (cm) - Width 2.1 0.2 -Post Debridement Size (cm) - Depth 0.1 0.1 -Total Square Cm 8.40 0.04 -Wound/Ulcer Outcome Not Healed Not Healed -Ulcer Cleansing Rinsed/ Rinsed/ Irrigated with Irrigated with Saline Saline -Foul Odor after Cleansing No No -Bioengineered Tissue No No -Bleeding Controlled with Pressure Pressure -Offloading No No -Treatment Response Procedure Procedure Tolerated Well Tolerated Well 27-right 2nd toe -Time 15:15 10:13 -Correct Patient Yes Yes -Correct Side, Site, Position Yes Yes -Correct Procedure Yes Yes -Procedure Performed Yes Yes -Type of Procedure Debridement Debridement -Clinical Debridement Subcutaneous Subcutaneous -Post Debridement Size (cm) - Length 2.0 1.6 -Post Debridement Size (cm) - Width 1.5 1.4 -Post Debridement Size (cm) - Depth 0.1 0.1 -Total Square Cm 3.00 2.24 -Wound/Ulcer Outcome Not Healed Not Healed -Ulcer Cleansing Rinsed/ Rinsed/ Irrigated with Irrigated with Saline Saline -Foul Odor after Cleansing No No -Bioengineered Tissue No No -Bleeding Controlled with Pressure Pressure -Offloading Yes No -Type of Offloading Surgical Shoe -Treatment Response Procedure Procedure Tolerated Well Tolerated Well #21 rt plantar medial foot -Time 15:16 10:14 -Correct Patient Yes Yes -Correct Side, Site, Position Yes Yes -Correct Procedure Yes Yes -Procedure Performed Yes Yes -Type of Procedure Debridement Debridement -Clinical Debridement Subcutaneous Subcutaneous -Post Debridement Size (cm) - Length 1.0 1.0 -Post Debridement Size (cm) - Width 0.4 0.6 -Post Debridement Size (cm) - Depth 0.2 0.1 -Total Square Cm 0.40 0.60 -Wound/Ulcer Outcome Not Healed Not Healed -Ulcer Cleansing Rinsed/ Rinsed/ Irrigated with Irrigated with Saline Saline -Foul Odor after Cleansing No No -Bioengineered Tissue No No -Bleeding Controlled with Pressure Pressure -Offloading No No -Treatment Response Procedure Procedure Tolerated Well Tolerated Well 20-right plantar heel -Time 15:18 -Correct Patient Yes -Correct Side, Site, Position Yes -Correct Procedure Yes -Procedure Performed Yes -Type of Procedure Debridement -Clinical Debridement Subcutaneous -Post Debridement Size (cm) - Length 5.1 -Post Debridement Size (cm) - Width 8.2 -Post Debridement Size (cm) - Depth 0.2 -Total Square Cm 41.82 -Wound/Ulcer Outcome Converted -Ulcer Cleansing Rinsed/ Irrigated with Saline -Foul Odor after Cleansing No -Bioengineered Tissue No -Bleeding Controlled with Pressure -Offloading Yes -Type of Offloading Surgical Shoe -Treatment Response Procedure Tolerated Well Pain Scale: 0-10 Numeric Is Patient Pain Free? Yes Yes Wound debrided: plantar heel Laterality: Right Wound Grade/Stage: grade 3 Type of Debridement: Excisional debridement Anesthesia Used: 5% Lidocaine Gel Depth: in the subcutaneous layer Percentage of wound debrided: 100 Instrument Used: #15 blade Tissue Removed: fibrous, devitalized subcutaneous, biofilm, slough Severity: Fat Layer Exposed Amount of bleeding with debridement: Mild Bleeding Controlled with: Pressure - Additional Wound Wound debrided: plantar medial foot, 2nd toe, lateral leg Laterality: Right Wound Grade/Stage: grade 1 Type of Debridement: Excisional debridement Anesthesia Used: 5% Lidocaine Gel Depth: in the subcutaneous layer Percentage of wound debrided: 100 Instrument Used: #15 blade Tissue Removed: fibrous, devitalized subcutaneous, biofilm, slough Severity: Fat Layer Exposed Amount of bleeding with debridement: Mild Bleeding Controlled with: Pressure Patient tolerated procedure: Patient tolerated procedure well - Additional Wound Wound debrided: plantar foot, anterior leg Laterality: Left Wound Grade/Stage: grade 1 Type of Debridement: Excisional debridement Anesthesia Used: 5% Lidocaine Gel Depth: in the subcutaneous layer Percentage of wound debrided: 100 Instrument Used: #15 blade Tissue Removed: fibrous, devitalized subcutaneous, biofilm, slough Severity: Fat Layer Exposed Amount of bleeding with debridement: Mild Bleeding Controlled with: Pressure Patient tolerated procedure: Patient tolerated procedure well Assessment/Plan Assessment: Left foot ulcer with resolved infection. Right forefoot medial plantar ulcer. left leg ulcer. right leg ulcer. Right heel ulcer stable. Right leg ulcer including a new 1 today. Left leg ulcer. Diabetes with neuropathy. lymphedema and continued leg swelling with recent exacerbation. peripheral vacular disease. venous insufficiency. Subacute osteomyelitis right calcaneus work-up ruled this out recently Plan: I discussed his case and treatment plan. Subcutaneous excisional debridement was performed to ulcer sites as noted in the nursing clinical panel to the right foot. To continue daily dressing changes with Aquacel. I recommend revisiting the work-up for osteomyelitis of the right calcaneus and sub acute manner at this time. Updated right foot x-rays were obtained to further evaluate the calcaneus and also his new injury site of the second toe. An MRI was non diagnostic for osteomyelitis. I do not recommend additional intervention at this time. To maintain improved skin integrity by applying lac hydrin lotion to both legs daily. Continue circaid wraps bilateral legs daily; it is okay to apply tubigrip prior to application of CircAid foot wrap to better keep his wound dressings in place. To continue compression pump device daily; he is doing well with this. To proceed as previously advised with his lymphedema follow-up as advised. He is discharged from the [facility] at this time. Farrow compression garments to promote improved continued edema management at a more proximal level was approved for right lower extremity use; to use as advised. To continue Lasix use as advised by primary care physician. To follow-up with primary care physician within the next month for progressive deconditioning status, edema management and also for medication refills. To complete the recommended primary care physician and physical therapy follow-up to work on deconditioning prevention and obtaining his hospital bed that was previously ordered. He is on antibiotics per infectious disease. His recent hospitalization and surgical drainage/debridement [facility] Dr. Koch at [facility] is noted. He will also monitor for signs of worsening or development of local or systemic illness and was reassured he appears to be stable at this time. To continue with portion control for weight loss and proper glycemic control and nutritional supplementation to optimize healing. His hemoglobin A1c went from 9.0 to 7.4. To continue strict offloading to all these ulcer sites. He has a donut offloading pillow and he was advised to use this. To follow-up with Dr. Peng as advised for the recommended bilateral intervention, venous. His recent vascular intervention in the left lower extremity is noted. All of his questions were answered. He understands he is still at risk for limb loss. To follow-up at the wound care center in 1 week or call sooner if he has any questions or concerns. He is on a palliative care program. It is noted he is at a snf facility at this time and has more help.
[2019-06-01 09:53] VITALS: BP 134/54; PULSE 63; RESP 18; TEMP 36.8; BMI 51.9
--- NOTE | 2019-06-01 11:55 | PCM.WC.PN ---
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: Chronic Current Visit: Yes Code(s): L97.512 - Non-pressure chronic ulcer of other part of right foot with fat layer exposed (2) Chronic ulcer of left foot with fat layer exposed Status: Chronic Current Visit: Yes Code(s): L97.522 - Non-pressure chronic ulcer of other part of left foot with fat layer exposed (3) Ulcer of right lower extremity with fat layer exposed Status: Chronic Current Visit: Yes Code(s): L97.912 - Non-pressure chronic ulcer of unspecified part of right lower leg with fat layer exposed (4) Walking difficulty due to ankle and foot Status: Chronic Current Visit: Yes Code(s): R26.2 - Difficulty in walking, not elsewhere classified (5) Lower extremity edema Status: Chronic Current Visit: Yes Code(s): R60.0 - Localized edema (6) Type 2 diabetes mellitus with diabetic polyneuropathy Status: Chronic Current Visit: Yes Qualifiers: Code(s): E11.42 - Type 2 diabetes mellitus with diabetic polyneuropathy (7) Ulcer of left lower extremity with fat layer exposed Status: Chronic Current Visit: Yes Code(s): L97.922 - Non-pressure chronic ulcer of unspecified part of left lower leg with fat layer exposed (8) Malnutrition Status: Chronic Current Visit: Yes Code(s): E46 - Unspecified protein-calorie malnutrition Type of Wound Date of Service: 06/01/19 Chief Complaint: Ulcer right second toe. right medial forefoot ulcer. right leg ulcer. Right heel ulcers. Left foot ulcer. left leg ulcer History of Wound: 64 year old male was seen for right heel ulcer with chronic osteomyelitis, right plantar heel ulcer, right forefoot ulcers and left and right leg ulcer and now with new left foot ulcer. He also has another leg blister to the right side and denies a known trauma. He resides in a long-term facility at this time and his discharge is planned for this upcoming Thursday for him to return home. He denies fever, chill, nausea, vomiting, loss of appetite. He will continue dressing as advised with Aquacel. He uses the compression pumps 2-3 times a day with significant edema reduction. He completed his vascular surgery angioplasty with Dr. Peng for the left lower extremity. He has received treatment at the lymphedema clinic as well. He uses CircAid compression wraps. He has followed with Dr. Peng as advised. He wears a right cam walker boot. Progress of Wound: Improving - Physical Exam Vital Signs Temp Pulse Resp BP 98.3 F 63 18 134/54 H 06/01/19 09:53 06/01/19 09:53 06/01/19 09:53 06/01/19 09:53 General: Alert, Oriented x3, Cooperative, No apparent distress Extremities: No cyanosis, Capillary Refill Less than 3 Seconds, No Calf Tenderness, Diminished Peripheral Pulses, Edema Skin: Ulcer/ Wound - No purulence, erythema, streaking, odor, infection. No necrosis or maceration or streaking. His skin is atrophic, hairless, and with hyperpigmentation. He does have a new serous fluid-filled blister to the anterior right leg Wound Measurements and Assessment WC - Nurse 1 - General Ulcer Measurement Start: 05/18/19 14:03 Freq: Status: Active Protocol: Activity Type Activity Date Activity User E-Sign Co-Sign Detail Recorded Client Recorded Date Recorded By Document 06/01/19 09:53 RB [id number] 06/01/19 10:04 RB 06/01/19 09:53 Wound Center Nurse 1 [Ulcer Assessment] #34 Lateral RLE -Combined with other wound No -Current Size (cm) - Length 0.1 -Current Size (cm) - Width 0.1 -Current Size (cm) - Depth 0.1 -Total Square Cm 0.01 -Tunneling No -Undermining/Tunneling No -Circular Undermining No -Exudate Amt Small -Exudate Type Serosanguineous -Wound Margin Flat & Intact -Granulation Amt Medium (34-66%) -Granulation Quality [place] -Slough/Fibrin Yes -Necrosis Amt Medium (34-66%) -Necrotic Tissue Type Adherent Slough -Structure Exposed N/A -Texture (Susy-wound Skin Appearance) Assessed -Moisture (Susy-wound Skin Appearance Assessed ) -Color (Susy-wound Skin Appearance) Assessed -Temperature (Susy-wound Skin No Abnormality Appearance) (Pt Warm) -Tenderness on Palpation (Susy-wound No Skin Appearance) -Ulcer Cleansing Wound Cleanser -Foul Odor after Cleansing No -Anesthetic Used 4% Lidocaine Solution #33 Right Bernstein -Combined with other wound No -Current Size (cm) - Length 0.1 -Current Size (cm) - Width 0.1 -Current Size (cm) - Depth 0.1 -Total Square Cm 0.01 -Tunneling No -Undermining/Tunneling No -Circular Undermining No -Exudate Amt Small -Exudate Type Serosanguineous -Wound Margin Flat & Intact -Granulation Amt Medium (34-66%) -Granulation Quality [place],Red -Slough/Fibrin Yes -Necrosis Amt Medium (34-66%) -Necrotic Tissue Type Adherent Slough -Structure Exposed N/A -Texture (Susy-wound Skin Appearance) Assessed -Moisture (Susy-wound Skin Appearance Assessed ) -Color (Susy-wound Skin Appearance) Assessed -Temperature (Susy-wound Skin No Abnormality Appearance) (Pt Warm) -Tenderness on Palpation (Susy-wound No Skin Appearance) -Ulcer Cleansing Wound Cleanser -Foul Odor after Cleansing No -Anesthetic Used 4% Lidocaine Solution #32- R HEEL -Combined with other wound No -Current Size (cm) - Length 4.8 -Current Size (cm) - Width 7 -Current Size (cm) - Depth 0.2 -Total Square Cm 33.6 -Tunneling No -Undermining/Tunneling No -Circular Undermining No -Exudate Amt Small -Exudate Type Serosanguineous -Wound Margin Flat & Intact -Granulation Amt Medium (34-66%) -Granulation Quality [place] -Slough/Fibrin Yes -Necrosis Amt Medium (34-66%) -Necrotic Tissue Type Adherent Slough -Structure Exposed N/A -Texture (Susy-wound Skin Appearance) Assessed -Moisture (Susy-wound Skin Appearance Assessed ) -Color (Susy-wound Skin Appearance) Assessed -Temperature (Susy-wound Skin No Abnormality Appearance) (Pt Warm) -Tenderness on Palpation (Susy-wound No Skin Appearance) -Ulcer Cleansing Wound Cleanser -Foul Odor after Cleansing No -Anesthetic Used 4% Lidocaine Solution #31- L PLANTAR FOOT -Combined with other wound No -Current Size (cm) - Length 5 -Current Size (cm) - Width 6.7 -Current Size (cm) - Depth 0.3 -Total Square Cm 33.5 -Tunneling No -Undermining/Tunneling No -Circular Undermining No -Exudate Amt Small -Exudate Type Serosanguineous -Wound Margin Flat & Intact -Granulation Amt Medium (34-66%) -Granulation Quality [place],Red -Slough/Fibrin Yes -Necrosis Amt Small (1-33%) -Necrotic Tissue Type Adherent Slough -Structure Exposed N/A -Texture (Susy-wound Skin Appearance) Callus -Moisture (Susy-wound Skin Appearance Assessed ) -Color (Susy-wound Skin Appearance) Assessed -Temperature (Susy-wound Skin No Abnormality Appearance) (Pt Warm) -Tenderness on Palpation (Susy-wound No Skin Appearance) -Ulcer Cleansing Wound Cleanser -Foul Odor after Cleansing No -Anesthetic Used 4% Lidocaine Solution 29-left anterior bernstein -Combined with other wound No -Current Size (cm) - Length 1.4 -Current Size (cm) - Width 1 -Current Size (cm) - Depth 0.1 -Total Square Cm 1.4 -Tunneling No -Undermining/Tunneling No -Circular Undermining No -Exudate Amt Small -Exudate Type Serosanguineous -Wound Margin Flat & Intact -Granulation Amt Medium (34-66%) -Granulation Quality [place] -Slough/Fibrin Yes -Necrosis Amt Small (1-33%) -Necrotic Tissue Type Adherent Slough -Structure Exposed N/A -Texture (Susy-wound Skin Appearance) Assessed -Moisture (Susy-wound Skin Appearance Assessed ) -Color (Susy-wound Skin Appearance) Assessed -Temperature (Susy-wound Skin No Abnormality Appearance) (Pt Warm) -Tenderness on Palpation (Susy-wound No Skin Appearance) -Ulcer Cleansing Wound Cleanser -Foul Odor after Cleansing No -Anesthetic Used 4% Lidocaine Solution 27-right 2nd toe -Combined with other wound No -Current Size (cm) - Length 1 -Current Size (cm) - Width 0.4 -Current Size (cm) - Depth 0.2 -Total Square Cm 0.4 -Tunneling No -Undermining/Tunneling No -Circular Undermining No -Exudate Amt Small -Exudate Type Serosanguineous -Wound Margin Flat & Intact -Granulation Amt Medium (34-66%) -Granulation Quality [place] -Slough/Fibrin Yes -Necrosis Amt Medium (34-66%) -Necrotic Tissue Type Adherent Slough -Structure Exposed N/A -Texture (Susy-wound Skin Appearance) Assessed -Moisture (Susy-wound Skin Appearance Assessed ) -Color (Susy-wound Skin Appearance) Assessed -Temperature (Susy-wound Skin No Abnormality Appearance) (Pt Warm) -Tenderness on Palpation (Susy-wound No Skin Appearance) -Ulcer Cleansing Wound Cleanser -Foul Odor after Cleansing No -Anesthetic Used 4% Lidocaine Solution #21 rt plantar medial foot -Combined with other wound No -Current Size (cm) - Length 1 -Current Size (cm) - Width 1.4 -Current Size (cm) - Depth 0.3 -Total Square Cm 1.4 -Tunneling No -Undermining/Tunneling No -Circular Undermining No -Exudate Amt Small -Exudate Type Serosanguineous -Wound Margin Flat & Intact -Granulation Amt Medium (34-66%) -Granulation Quality [place] -Necrosis Amt Medium (34-66%) -Necrotic Tissue Type Adherent Slough -Structure Exposed N/A -Texture (Susy-wound Skin Appearance) Assessed -Moisture (Susy-wound Skin Appearance Assessed ) -Color (Susy-wound Skin Appearance) Assessed -Temperature (Susy-wound Skin No Abnormality Appearance) (Pt Warm) -Tenderness on Palpation (Susy-wound No Skin Appearance) -Ulcer Cleansing Wound Cleanser -Foul Odor after Cleansing No -Anesthetic Used 4% Lidocaine Solution [Edema Assessment] -Lower Limb Edema Present Yes -Right Calf (cm) 47.4 -Right Ankle (cm) 28.4 -Left Calf (cm) 45.4 -Left Ankle (cm) 27.2 WC - Nurse 2 - General Ulcer CM Notes Start: 05/18/19 14:03 Freq: Status: Active Protocol: Activity Type Activity Date Activity User E-Sign Co-Sign Detail Recorded Client Recorded Date Recorded By Document 06/01/19 10:18 [id number] 06/01/19 10:22 06/01/19 10:18 Wound Center Nurse 2 [Procedure/Treatment] #34 Lateral RLE -Time 10:19 -Correct Patient Yes -Correct Side, Site, Position Yes -Correct Procedure Yes -Procedure Performed Yes -Type of Procedure Debridement -Clinical Debridement Subcutaneous -Post Debridement Size (cm) - Length 0.2 -Post Debridement Size (cm) - Width 0.3 -Post Debridement Size (cm) - Depth 0.1 -Total Square Cm 0.06 -Wound/Ulcer Outcome Not Healed -Ulcer Cleansing Rinsed/ Irrigated with Saline -Foul Odor after Cleansing No -Bioengineered Tissue No -Bleeding Controlled with Pressure -Offloading No -Treatment Response Procedure Tolerated Well #33 Right Bernstein -Time 10:20 -Correct Patient Yes -Correct Side, Site, Position Yes -Correct Procedure Yes -Procedure Performed Yes -Type of Procedure Debridement -Clinical Debridement Subcutaneous -Post Debridement Size (cm) - Length 0.1 -Post Debridement Size (cm) - Width 0.1 -Post Debridement Size (cm) - Depth 0.1 -Total Square Cm 0.01 -Wound/Ulcer Outcome Not Healed -Ulcer Cleansing Rinsed/ Irrigated with Saline -Foul Odor after Cleansing No -Bioengineered Tissue No -Bleeding Controlled with Pressure -Offloading No -Treatment Response Procedure Tolerated Well #32- R HEEL -Time 10:20 -Correct Patient Yes -Correct Side, Site, Position Yes -Correct Procedure Yes -Procedure Performed Yes -Type of Procedure Debridement -Clinical Debridement Subcutaneous -Post Debridement Size (cm) - Length 4.8 -Post Debridement Size (cm) - Width 7.1 -Post Debridement Size (cm) - Depth 0.2 -Total Square Cm 34.08 -Wound/Ulcer Outcome Not Healed -Ulcer Cleansing Rinsed/ Irrigated with Saline -Foul Odor after Cleansing No -Bioengineered Tissue No -Bleeding Controlled with Pressure -Offloading Yes -Type of Offloading Surgical Shoe -Treatment Response Procedure Tolerated Well #31- L PLANTAR FOOT -Time 10:21 -Correct Patient Yes -Correct Side, Site, Position Yes -Correct Procedure Yes -Procedure Performed Yes -Type of Procedure Debridement -Clinical Debridement Subcutaneous -Post Debridement Size (cm) - Length 5 -Post Debridement Size (cm) - Width 6.8 -Post Debridement Size (cm) - Depth 0.3 -Total Square Cm 34.0 -Wound/Ulcer Outcome Not Healed -Ulcer Cleansing Rinsed/ Irrigated with Saline -Foul Odor after Cleansing No -Bioengineered Tissue No -Bleeding Controlled with Pressure -Offloading Yes -Type of Offloading Surgical Shoe -Treatment Response Procedure Tolerated Well 29-left anterior bernstein -Time 10:21 -Correct Patient Yes -Correct Side, Site, Position Yes -Correct Procedure Yes -Procedure Performed Yes -Type of Procedure Debridement -Clinical Debridement Subcutaneous -Post Debridement Size (cm) - Length 1.5 -Post Debridement Size (cm) - Width 1 -Post Debridement Size (cm) - Depth 0.1 -Total Square Cm 1.5 -Wound/Ulcer Outcome Not Healed -Ulcer Cleansing Rinsed/ Irrigated with Saline -Foul Odor after Cleansing No -Bioengineered Tissue No -Bleeding Controlled with Pressure -Offloading Yes -Type of Offloading Surgical Shoe -Treatment Response Procedure Tolerated Well 27-right 2nd toe -Time 10:21 -Correct Patient Yes -Correct Side, Site, Position Yes -Correct Procedure Yes -Procedure Performed Yes -Type of Procedure Debridement -Clinical Debridement Subcutaneous -Post Debridement Size (cm) - Length 1 -Post Debridement Size (cm) - Width 0.5 -Post Debridement Size (cm) - Depth 0.2 -Total Square Cm 0.5 -Wound/Ulcer Outcome Not Healed -Ulcer Cleansing Rinsed/ Irrigated with Saline -Foul Odor after Cleansing No -Bioengineered Tissue No -Bleeding Controlled with Pressure -Offloading Yes -Type of Offloading Surgical Shoe -Treatment Response Procedure Tolerated Well #21 rt plantar medial foot -Time 10:22 -Correct Patient Yes -Correct Side, Site, Position Yes -Correct Procedure Yes -Procedure Performed Yes -Type of Procedure Debridement -Clinical Debridement Subcutaneous -Post Debridement Size (cm) - Length 1 -Post Debridement Size (cm) - Width 1.5 -Post Debridement Size (cm) - Depth 0.3 -Total Square Cm 1.5 -Wound/Ulcer Outcome Not Healed -Ulcer Cleansing Rinsed/ Irrigated with Saline -Foul Odor after Cleansing No -Bioengineered Tissue No -Bleeding Controlled with Pressure -Offloading Yes -Type of Offloading Surgical Shoe -Treatment Response Procedure Tolerated Well [See Physician Procedure note for Specifics] Pain Scale: 0-10 Numeric [Pain] -Is Patient Pain Free? Yes Musculoskeletal: No Tenderness to Palpation of Joints or Extremities, Muscle Wasting, - - Generalized deconditioning lower extremity weakness noted Neurological: - - Lack of normal epicritic sensation light touch is consistent with neuropathy status Psych/Mental Status: Normal Affect, Appropriate Debridement Note Post-Debridement Measurements/Treatment WC - Nurse 2 - General Ulcer CM Notes Start: 05/18/19 14:03 Freq: Status: Active Protocol: Activity Type Activity Date Activity User E-Sign Co-Sign Detail Recorded Client Recorded Date Recorded By Document 05/18/19 15:12 NORRIS [id number] 05/18/19 15:22 Document 05/25/19 10:12 RB [id number] 05/25/19 10:14 RB Document 06/01/19 10:18 JF [id number] 06/01/19 10:22 JF 05/18/19 05/25/19 06/01/19 15:12 10:12 10:18 Wound Center Nurse 2 #34 Lateral RLE -Time 15:13 10:12 10:19 -Correct Patient Yes Yes Yes -Correct Side, Site, Position Yes Yes Yes -Correct Procedure Yes Yes Yes -Procedure Performed Yes Yes Yes -Type of Procedure Debridement Debridement Debridement -Clinical Debridement Subcutaneous Subcutaneous Subcutaneous -Post Debridement Size (cm) - Length 0.8 1 0.2 -Post Debridement Size (cm) - Width 1 0.9 0.3 -Post Debridement Size (cm) - Depth 0.1 0.1 0.1 -Total Square Cm 0.8 0.9 0.06 -Wound/Ulcer Outcome Not Healed Not Healed Not Healed -Ulcer Cleansing Rinsed/ Rinsed/ Rinsed/ Irrigated with Irrigated with Irrigated with Saline Saline Saline -Foul Odor after Cleansing No No No -Bioengineered Tissue No No No -Bleeding Controlled with Pressure Pressure Pressure -Offloading No No No -Treatment Response Procedure Procedure Procedure Tolerated Well Tolerated Well Tolerated Well #33 Right Bernstein -Time 15:14 10:12 10:20 -Correct Patient Yes Yes Yes -Correct Side, Site, Position Yes Yes Yes -Correct Procedure Yes Yes Yes -Procedure Performed Yes Yes Yes -Type of Procedure Debridement Debridement Debridement -Clinical Debridement Subcutaneous Subcutaneous Subcutaneous -Post Debridement Size (cm) - Length 0.5 0.6 0.1 -Post Debridement Size (cm) - Width 0.8 0.6 0.1 -Post Debridement Size (cm) - Depth 0.1 0.1 0.1 -Total Square Cm 0.40 0.36 0.01 -Wound/Ulcer Outcome Not Healed Not Healed Not Healed -Ulcer Cleansing Rinsed/ Rinsed/ Rinsed/ Irrigated with Irrigated with Irrigated with Saline Saline Saline -Foul Odor after Cleansing No No No -Bioengineered Tissue No No No -Bleeding Controlled with Pressure Pressure Pressure -Offloading No No No -Treatment Response Procedure Procedure Procedure Tolerated Well Tolerated Well Tolerated Well #32- R HEEL -Time 15:14 10:12 10:20 -Correct Patient Yes Yes Yes -Correct Side, Site, Position Yes Yes Yes -Correct Procedure Yes Yes Yes -Procedure Performed Yes Yes Yes -Type of Procedure Debridement Debridement Debridement -Clinical Debridement Subcutaneous Subcutaneous Subcutaneous -Post Debridement Size (cm) - Length 5 5.1 4.8 -Post Debridement Size (cm) - Width 8.3 7 7.1 -Post Debridement Size (cm) - Depth 0.2 0.1 0.2 -Total Square Cm 41.5 35.7 34.08 -Wound/Ulcer Outcome Not Healed Not Healed Not Healed -Ulcer Cleansing Rinsed/ Rinsed/ Rinsed/ Irrigated with Irrigated with Irrigated with Saline Saline Saline -Foul Odor after Cleansing No No No -Bioengineered Tissue No No No -Bleeding Controlled with Pressure Pressure Pressure -Offloading Yes No Yes -Type of Offloading Surgical Shoe Surgical Shoe -Treatment Response Procedure Procedure Procedure Tolerated Well Tolerated Well Tolerated Well #31- L PLANTAR FOOT -Time 15:20 10:13 10:21 -Correct Patient Yes Yes Yes -Correct Side, Site, Position Yes Yes Yes -Correct Procedure Yes Yes Yes -Procedure Performed Yes Yes Yes -Type of Procedure Debridement Debridement Debridement -Clinical Debridement Subcutaneous Subcutaneous Subcutaneous -Post Debridement Size (cm) - Length 8.2 5.6 5 -Post Debridement Size (cm) - Width 5.7 7 6.8 -Post Debridement Size (cm) - Depth 0.4 0.2 0.3 -Total Square Cm 46.74 39.2 34.0 -Wound/Ulcer Outcome Not Healed Not Healed Not Healed -Ulcer Cleansing Rinsed/ Rinsed/ Rinsed/ Irrigated with Irrigated with Irrigated with Saline Saline Saline -Foul Odor after Cleansing No No No -Bioengineered Tissue No No No -Bleeding Controlled with Pressure Pressure Pressure -Offloading Yes No Yes -Type of Offloading Surgical Shoe Surgical Shoe -Treatment Response Procedure Procedure Procedure Tolerated Well Tolerated Well Tolerated Well 29-left anterior bernstein -Time 15:20 10:13 10:21 -Correct Patient Yes Yes Yes -Correct Side, Site, Position Yes Yes Yes -Correct Procedure Yes Yes Yes -Procedure Performed Yes Yes Yes -Type of Procedure Debridement Debridement Debridement -Clinical Debridement Subcutaneous Subcutaneous Subcutaneous -Post Debridement Size (cm) - Length 4.0 0.2 1.5 -Post Debridement Size (cm) - Width 2.1 0.2 1 -Post Debridement Size (cm) - Depth 0.1 0.1 0.1 -Total Square Cm 8.40 0.04 1.5 -Wound/Ulcer Outcome Not Healed Not Healed Not Healed -Ulcer Cleansing Rinsed/ Rinsed/ Rinsed/ Irrigated with Irrigated with Irrigated with Saline Saline Saline -Foul Odor after Cleansing No No No -Bioengineered Tissue No No No -Bleeding Controlled with Pressure Pressure Pressure -Offloading No No Yes -Type of Offloading Surgical Shoe -Treatment Response Procedure Procedure Procedure Tolerated Well Tolerated Well Tolerated Well 27-right 2nd toe -Time 15:15 10:13 10:21 -Correct Patient Yes Yes Yes -Correct Side, Site, Position Yes Yes Yes -Correct Procedure Yes Yes Yes -Procedure Performed Yes Yes Yes -Type of Procedure Debridement Debridement Debridement -Clinical Debridement Subcutaneous Subcutaneous Subcutaneous -Post Debridement Size (cm) - Length 2.0 1.6 1 -Post Debridement Size (cm) - Width 1.5 1.4 0.5 -Post Debridement Size (cm) - Depth 0.1 0.1 0.2 -Total Square Cm 3.00 2.24 0.5 -Wound/Ulcer Outcome Not Healed Not Healed Not Healed -Ulcer Cleansing Rinsed/ Rinsed/ Rinsed/ Irrigated with Irrigated with Irrigated with Saline Saline Saline -Foul Odor after Cleansing No No No -Bioengineered Tissue No No No -Bleeding Controlled with Pressure Pressure Pressure -Offloading Yes No Yes -Type of Offloading Surgical Shoe Surgical Shoe -Treatment Response Procedure Procedure Procedure Tolerated Well Tolerated Well Tolerated Well #21 rt plantar medial foot -Time 15:16 10:14 10:22 -Correct Patient Yes Yes Yes -Correct Side, Site, Position Yes Yes Yes -Correct Procedure Yes Yes Yes -Procedure Performed Yes Yes Yes -Type of Procedure Debridement Debridement Debridement -Clinical Debridement Subcutaneous Subcutaneous Subcutaneous -Post Debridement Size (cm) - Length 1.0 1.0 1 -Post Debridement Size (cm) - Width 0.4 0.6 1.5 -Post Debridement Size (cm) - Depth 0.2 0.1 0.3 -Total Square Cm 0.40 0.60 1.5 -Wound/Ulcer Outcome Not Healed Not Healed Not Healed -Ulcer Cleansing Rinsed/ Rinsed/ Rinsed/ Irrigated with Irrigated with Irrigated with Saline Saline Saline -Foul Odor after Cleansing No No No -Bioengineered Tissue No No No -Bleeding Controlled with Pressure Pressure Pressure -Offloading No No Yes -Type of Offloading Surgical Shoe -Treatment Response Procedure Procedure Procedure Tolerated Well Tolerated Well Tolerated Well 20-right plantar heel -Time 15:18 -Correct Patient Yes -Correct Side, Site, Position Yes -Correct Procedure Yes -Procedure Performed Yes -Type of Procedure Debridement -Clinical Debridement Subcutaneous -Post Debridement Size (cm) - Length 5.1 -Post Debridement Size (cm) - Width 8.2 -Post Debridement Size (cm) - Depth 0.2 -Total Square Cm 41.82 -Wound/Ulcer Outcome Converted -Ulcer Cleansing Rinsed/ Irrigated with Saline -Foul Odor after Cleansing No -Bioengineered Tissue No -Bleeding Controlled with Pressure -Offloading Yes -Type of Offloading Surgical Shoe -Treatment Response Procedure Tolerated Well Pain Scale: 0-10 Numeric Is Patient Pain Free? Yes Yes Yes Wound debrided: plantar heel Laterality: Right Wound Grade/Stage: grade 3 Type of Debridement: Excisional debridement Anesthesia Used: 5% Lidocaine Gel Depth: in the subcutaneous layer Percentage of wound debrided: 100 Instrument Used: #15 blade Tissue Removed: fibrous, devitalized subcutaneous, biofilm, slough Severity: Fat Layer Exposed Amount of bleeding with debridement: Mild Bleeding Controlled with: Pressure Patient tolerated procedure well - Additional Wound Wound debrided: plantar medial forefoot, leg, dorsal 2nd toe Laterality: Right Wound Grade/Stage: grade 1 Type of Debridement: Excisional debridement Anesthesia Used: 5% Lidocaine Gel Depth: in the subcutaneous layer Percentage of wound debrided: 100 Instrument Used: #15 blade Tissue Removed: fibrous, devitalized subcutaneous, biofilm, slough Severity: Fat Layer Exposed Amount of bleeding with debridement: Mild Bleeding Controlled with: Pressure Patient tolerated procedure: Patient tolerated procedure well - Additional Wound Wound debrided: plantar foot, anterior leg Laterality: Left Wound Grade/Stage: grade 1 Type of Debridement: Excisional debridement Anesthesia Used: 5% Lidocaine Gel Depth: in the subcutaneous layer Percentage of wound debrided: 100 Instrument Used: #15 blade Tissue Removed: fibrous, devitalized subcutaneous, biofilm, slough Severity: Fat Layer Exposed Amount of bleeding with debridement: Mild Bleeding Controlled with: Pressure Patient tolerated procedure: Patient tolerated procedure well Assessment/Plan Active Problems Ulcer of right foot with fat layer exposed (Chronic) Chronic ulcer of left foot with fat layer exposed (Chronic) Ulcer of right lower extremity with fat layer exposed (Chronic) Walking difficulty due to ankle and foot (Chronic) Lower extremity edema (Chronic) Type 2 diabetes mellitus with diabetic polyneuropathy (Chronic) Ulcer of left lower extremity with fat layer exposed (Chronic) Malnutrition (Chronic) Assessment: New right leg blister. Left foot ulcer with resolved infection. Right forefoot medial plantar ulcer. left leg ulcer. right leg ulcer. Right heel ulcer stable. Right leg ulcer including a new 1 today. Left leg ulcer. Diabetes with neuropathy. lymphedema and continued leg swelling with recent exacerbation. peripheral vacular disease. venous insufficiency Plan: I discussed his case and treatment plan. Subcutaneous excisional debridement was performed to ulcer sites as noted in the nursing clinical panel to the right foot. To continue daily dressing changes with Aquacel. Alcohol wipe was used to clean his blister site to his right leg and this was pierced with a 15 blade scalpel. Only serous drainage was noted and this was covered with a dry gauze. The outer layer of skin was kept intact as a biological barrier and he was reassured this noninfected. To maintain improved skin integrity by applying lac hydrin lotion to both legs daily. Continue circaid wraps bilateral legs daily; it is okay to apply tubigrip prior to application of CircAid foot wrap to better keep his wound dressings in place. To continue compression pump device daily; he is doing well with this. To proceed as previously advised with his lymphedema follow-up as advised. He is [facility] from the [facility] at this time. Farrow compression garments to promote improved continued edema management at a more proximal level was approved for right lower extremity use; to use as advised. To continue Lasix use as advised by primary care physician. To follow-up with primary care physician within the next month for progressive deconditioning status, edema management and also for medication refills. To complete the recommended primary care physician and physical therapy follow-up to work on deconditioning prevention and obtaining his hospital bed that was previously ordered. . To continue with portion control for weight loss and proper glycemic control and nutritional supplementation to optimize healing. His hemoglobin A1c went from 9.0 to 7.4. To continue strict offloading to all these ulcer sites. He has a donut offloading pillow and he was advised to use this. To follow-up with Dr. Peng as advised for the recommended bilateral intervention, venous. His recent vascular intervention in the left lower extremity is noted. All of his questions were answered. He understands he is still at risk for limb loss. It is noted he would likely be discharged home from the long-term facility later this week. To continue with the recommended exercise regimen and diet protocol. To follow-up at the wound care center in 1 week or call sooner if he has any questions or concerns. He is on a palliative care program.
== END 2019-06-14 23:59 ==
LOC: WC 09:30
PROVIDERS: Family Provider Family Medicine; PCP Family Medicine; Referring Provider Podiatrist; Visit Provider Podiatrist
DX: E11.621 Type 2 diabetes mellitus with foot ulcer (principal); I87.2 Venous insufficiency (chronic) (peripheral); E11.51 Type 2 diabetes mellitus with diabetic peripheral angiopathy without gangrene; L97.412 Non-pressure chronic ulcer of right heel and midfoot with fat layer exposed; E11.622 Type 2 diabetes mellitus with other skin ulcer; L97.812 Non-pressure chronic ulcer of other part of right lower leg with fat layer exposed; R26.2 Difficulty in walking, not elsewhere classified; E11.42 Type 2 diabetes mellitus with diabetic polyneuropathy; L97.522 Non-pressure chronic ulcer of other part of left foot with fat layer exposed; R60.0 Localized edema; M79.89 Other specified soft tissue disorders; E11.69 Type 2 diabetes mellitus with other specified complication; M86.671 Other chronic osteomyelitis, right ankle and foot; S80.821A Blister (nonthermal), right lower leg, initial encounter; X58.XXXA Exposure to other specified factors, initial encounter; I89.0 Lymphedema, not elsewhere classified
CPT/HCPCS: 11042; 11045

== ENCOUNTER 2019-06-29 10:30 | Outpatient (RCR) | payer MEDICARE, MEDICAID, SELFPAY ==
[2019-06-15 00:21] VITALS: BP 134/54; PULSE 63; RESP 18; TEMP 36.8
[2019-06-15 11:17] VITALS: BMI 51.9
--- NOTE | 2019-06-15 15:23 | PCM.WC.PN ---
(1) Lymphedema Status: Chronic Code(s): I89.0 - Lymphedema, not elsewhere classified (2) Venous insufficiency Status: Chronic Code(s): I87.2 - Venous insufficiency (chronic) (peripheral) (3) Ulcer of right foot with fat layer exposed Status: Chronic Code(s): L97.512 - Non-pressure chronic ulcer of other part of right foot with fat layer exposed (4) Non-pressure chronic ulcer of other part of left foot with fat layer exposed Status: Chronic Code(s): L97.522 - Non-pressure chronic ulcer of other part of left foot with fat layer exposed (5) Ulcer of right lower extremity with fat layer exposed Status: Resolved Code(s): L97.912 - Non-pressure chronic ulcer of unspecified part of right lower leg with fat layer exposed (6) Ulcer of left lower extremity with fat layer exposed Status: Resolved Code(s): L97.922 - Non-pressure chronic ulcer of unspecified part of left lower leg with fat layer exposed (7) Lower extremity edema Status: Chronic Code(s): R60.0 - Localized edema (8) Type 2 diabetes mellitus with diabetic polyneuropathy Status: Chronic Qualifiers: Code(s): E11.42 - Type 2 diabetes mellitus with diabetic polyneuropathy (9) Malnutrition Status: Chronic Code(s): E46 - Unspecified protein-calorie malnutrition Type of Wound Date of Service: 06/15/19 Chief Complaint: Ulcer right second toe. right medial forefoot ulcer. right leg ulcer. Right heel ulcers. Left foot ulcer. left leg ulcer History of Wound: 64 year old male was seen for right heel ulcer with chronic osteomyelitis, right plantar heel ulcer, right forefoot ulcers and left and right leg ulcer and now with left foot ulcer. He is also being followed for leg ulcers resulting after blisters were drained at previous visits. He now resides at home and has assistance of home health for dressing care. He relates he is frustrated because the legs are not being washed with soap and water and he is asking for additional help. He denies fever, chill, nausea, vomiting, loss of appetite. He will continue dressing as advised with Aquacel. He uses the compression pumps 2-3 times a day with significant edema reduction. He completed his vascular surgery angioplasty with Dr. Peng for the left lower extremity. He has received treatment at the lymphedema clinic as well. He uses CircAid compression wraps. He has followed with Dr. Peng as advised. He has lower extremity offloading devices in place. Progress of Wound: Improving. Leg ulcers healed - Physical Exam Vital Signs Temp Pulse Resp BP 98.3 F 63 18 134/54 H 06/15/19 00:21 06/15/19 00:21 06/15/19 00:21 06/15/19 00:21 General: Alert, Oriented x3, Cooperative, No apparent distress Extremities: No cyanosis, Capillary Refill Less than 3 Seconds, No Calf Tenderness, Diminished Peripheral Pulses, Edema Skin: Ulcer/ Wound - No purulence, erythema, streaking, odor, infection. The adjacent skin is hairless and atrophic. There is full epithelialization to bilateral legs and the leg ulcer sites have healed. His skin is peeling in a reduced amount. He has no exposed deep tissue, maceration, odor, or necrosis bilateral Wound Measurements and Assessment WC - Nurse 1 - General Ulcer Measurement Start: 06/15/19 11:17 Freq: Status: Active Protocol: Activity Type Activity Date Activity User E-Sign Co-Sign Detail Recorded Client Recorded Date Recorded By Document 06/15/19 11:17 DV [id number] 06/15/19 11:29 DV 06/15/19 11:17 Wound Center Nurse 1 [Ulcer Assessment] #34 Lateral RLE -Combined with other wound No -Photo Taken No -Epithelialization None Present -Tunneling No #33 Right Bernstein -Combined with other wound No #32- R HEEL -Combined with other wound No -Current Size (cm) - Length 4.0 -Current Size (cm) - Width 6.0 -Current Size (cm) - Depth 0.2 -Total Square Cm 24.00 -Photo Taken No -Epithelialization Small 1-33% -Tunneling No -Undermining/Tunneling No -Circular Undermining No -Classification - Thickness Full Thickness without Exposed Support Structure -Exudate Amt Medium -Exudate Type Serosanguineous -Wound Margin Indistinct, Non -Visible -Granulation Amt Small (1-33%) -Granulation Quality [place] -Slough/Fibrin Yes -Necrosis Amt Large (67-100%) -Necrotic Tissue Type Adherent Slough -Structure Exposed None/Limited to Skin Breakdown -Texture (Susy-wound Skin Appearance) Assessed -Moisture (Susy-wound Skin Appearance Assessed ) -Color (Susy-wound Skin Appearance) Assessed -Temperature (Susy-wound Skin No Abnormality Appearance) (Pt Warm) -Foul Odor after Cleansing Yes -Anesthetic Used 4% Lidocaine Solution #31- L PLANTAR FOOT -Combined with other wound No -Current Size (cm) - Length 4.0 -Current Size (cm) - Width 6.6 -Current Size (cm) - Depth 0.3 -Total Square Cm 26.40 -Photo Taken No -Epithelialization None Present -Tunneling No -Undermining/Tunneling No -Circular Undermining No -Classification - Thickness Full Thickness without Exposed Support Structure -Exudate Amt Medium -Exudate Type Serosanguineous -Wound Margin Indistinct, Non -Visible -Granulation Amt None Present (0 %) -Granulation Quality N/A -Slough/Fibrin No -Necrosis Amt Large (67-100%) -Necrotic Tissue Type Adherent Slough -Structure Exposed None/Limited to Skin Breakdown -Texture (Susy-wound Skin Appearance) Assessed, Localized Edema ,Rash -Moisture (Susy-wound Skin Appearance Assessed, ) Maceration -Color (Susy-wound Skin Appearance) Assessed -Temperature (Susy-wound Skin No Abnormality Appearance) (Pt Warm) -Tenderness on Palpation (Susy-wound No Skin Appearance) -Foul Odor after Cleansing Yes -Anesthetic Used 4% Lidocaine Solution 29-left anterior bernstein -Combined with other wound No -Current Size (cm) - Length 1.0 -Current Size (cm) - Width 0.2 -Current Size (cm) - Depth 0.2 -Total Square Cm 0.20 -Photo Taken No -Epithelialization None Present -Tunneling No -Undermining/Tunneling No -Circular Undermining No -Classification - Thickness Full Thickness without Exposed Support Structure -Exudate Amt Medium -Exudate Type Serosanguineous -Wound Margin Indistinct, Non -Visible -Granulation Amt None Present (0 %) -Granulation Quality N/A -Slough/Fibrin No -Necrosis Amt Large (67-100%) -Necrotic Tissue Type Adherent Slough -Structure Exposed None/Limited to Skin Breakdown -Texture (Susy-wound Skin Appearance) Assessed, Localized Edema ,Scarring,Rash -Moisture (Susy-wound Skin Appearance Assessed, ) Maceration, Weeping -Color (Susy-wound Skin Appearance) Assessed -Temperature (Susy-wound Skin No Abnormality Appearance) (Pt Warm) -Tenderness on Palpation (Susy-wound No Skin Appearance) -Foul Odor after Cleansing Yes -Anesthetic Used 4% Lidocaine Solution 27-right 2nd toe -Combined with other wound No -Current Size (cm) - Length 0.7 -Current Size (cm) - Width 0.4 -Current Size (cm) - Depth 0.1 -Total Square Cm 0.28 -Photo Taken No -Epithelialization None Present -Tunneling No -Undermining/Tunneling No -Circular Undermining No -Classification - Thickness Full Thickness without Exposed Support Structure -Change in Wound Grade/Stage No Query Text:If change please identify the Stage/Grade in the comment (ie. S2 G3) -Exudate Amt Medium -Exudate Type Serous -Wound Margin Indistinct, Non -Visible -Granulation Amt None Present (0 %) -Granulation Quality N/A -Slough/Fibrin No -Necrosis Amt Large (67-100%) -Necrotic Tissue Type Adherent Slough -Structure Exposed None/Limited to Skin Breakdown -Texture (Susy-wound Skin Appearance) Assessed,Callus ,Localized Edema,Scarring -Moisture (Susy-wound Skin Appearance Assessed, ) Maceration, Weeping -Color (Susy-wound Skin Appearance) Assessed -Temperature (Susy-wound Skin No Abnormality Appearance) (Pt Warm) -Tenderness on Palpation (Susy-wound No Skin Appearance) -Foul Odor after Cleansing Yes -Anesthetic Used 4% Lidocaine Solution #21 rt plantar medial foot -Combined with other wound No -Current Size (cm) - Length 1.2 -Current Size (cm) - Width 1.5 -Current Size (cm) - Depth 0.2 -Total Square Cm 1.80 -Photo Taken No -Epithelialization None Present -Tunneling No -Undermining/Tunneling No -Circular Undermining No -Classification - Thickness Full Thickness without Exposed Support Structure -Exudate Amt Medium -Exudate Type Serous -Wound Margin Indistinct, Non -Visible -Granulation Amt None Present (0 %) -Granulation Quality N/A -Slough/Fibrin Yes -Necrosis Amt Large (67-100%) -Necrotic Tissue Type Adherent Slough -Structure Exposed None/Limited to Skin Breakdown -Texture (Susy-wound Skin Appearance) Assessed, Localized Edema ,Scarring -Moisture (Susy-wound Skin Appearance No Abnormality, ) Maceration, Weeping -Color (Susy-wound Skin Appearance) Assessed, Erythema -Temperature (Susy-wound Skin No Abnormality Appearance) (Pt Warm) -Foul Odor after Cleansing Yes -Anesthetic Used 4% Lidocaine Solution [Edema Assessment] -Lower Limb Edema Present Yes -Right Calf (cm) 55.0 -Right Ankle (cm) 32.5 -Left Calf (cm) 57.0 -Left Ankle (cm) 32.5 WC - Nurse 2 - General Ulcer CM Notes Start: 06/15/19 11:17 Freq: Status: Active Protocol: Activity Type Activity Date Activity User E-Sign Co-Sign Detail Recorded Client Recorded Date Recorded By Document 06/15/19 11:48 NORRIS [id number] 06/15/19 11:57 NORRIS 06/15/19 11:48 Wound Center Nurse 2 [Procedure/Treatment] #34 Lateral RLE -Time 11:49 -Correct Patient No -Correct Side, Site, Position No -Correct Procedure No -Procedure Performed No -Post Debridement Size (cm) - Length 0 -Post Debridement Size (cm) - Width 0 -Post Debridement Size (cm) - Depth 0 -Total Square Cm 0 -Wound/Ulcer Outcome Healed- Epithelialized -Ulcer Cleansing Rinsed/ Irrigated with Saline -Foul Odor after Cleansing No -Bioengineered Tissue No -Bleeding Controlled with Pressure -Offloading Yes -Type of Offloading Surgical Shoe -Treatment Response Procedure Tolerated Well #33 Right Bernstein -Correct Patient No -Correct Side, Site, Position No -Correct Procedure No -Procedure Performed No -Post Debridement Size (cm) - Length 0 -Post Debridement Size (cm) - Width 0 -Post Debridement Size (cm) - Depth 0 -Total Square Cm 0 -Wound/Ulcer Outcome Healed- Epithelialized #32- R HEEL -Time 11:50 -Correct Patient Yes -Correct Side, Site, Position Yes -Correct Procedure Yes -Procedure Performed Yes -Type of Procedure Debridement -Clinical Debridement Subcutaneous -Post Debridement Size (cm) - Length 4 -Post Debridement Size (cm) - Width 6.1 -Post Debridement Size (cm) - Depth 0.2 -Total Square Cm 24.4 -Wound/Ulcer Outcome Not Healed -Ulcer Cleansing Rinsed/ Irrigated with Saline -Foul Odor after Cleansing No -Bioengineered Tissue No -Bleeding Controlled with Pressure -Offloading Yes -Type of Offloading Surgical Shoe -Treatment Response Procedure Tolerated Well #31- L PLANTAR FOOT -Time 11:50 -Correct Patient Yes -Correct Side, Site, Position Yes -Correct Procedure Yes -Procedure Performed Yes -Type of Procedure Debridement -Clinical Debridement Subcutaneous -Post Debridement Size (cm) - Length 4.1 -Post Debridement Size (cm) - Width 6.6 -Post Debridement Size (cm) - Depth 0.3 -Total Square Cm 27.06 -Wound/Ulcer Outcome Not Healed -Ulcer Cleansing Rinsed/ Irrigated with Saline -Foul Odor after Cleansing No -Bioengineered Tissue No -Bleeding Controlled with Pressure -Offloading Yes -Type of Offloading Surgical Shoe -Treatment Response Procedure Tolerated Well 29-left anterior bernstein -Time 11:51 -Correct Patient No -Correct Side, Site, Position No -Correct Procedure No -Procedure Performed No -Post Debridement Size (cm) - Length 0 -Post Debridement Size (cm) - Width 0 -Post Debridement Size (cm) - Depth 0 -Total Square Cm 0 -Wound/Ulcer Outcome Healed- Epithelialized 27-right 2nd toe -Time 11:52 -Correct Patient Yes -Correct Side, Site, Position Yes -Correct Procedure Yes -Procedure Performed Yes -Type of Procedure Debridement -Clinical Debridement Subcutaneous -Post Debridement Size (cm) - Length 0.8 -Post Debridement Size (cm) - Width 0.5 -Post Debridement Size (cm) - Depth 0.1 -Total Square Cm 0.40 -Wound/Ulcer Outcome Not Healed -Ulcer Cleansing Rinsed/ Irrigated with Saline -Foul Odor after Cleansing No -Bioengineered Tissue No -Bleeding Controlled with Pressure -Offloading Yes -Type of Offloading Surgical Shoe -Treatment Response Procedure Tolerated Well #21 rt plantar medial foot -Time 11:52 -Correct Patient Yes -Correct Side, Site, Position Yes -Correct Procedure Yes -Procedure Performed Yes -Type of Procedure Debridement -Clinical Debridement Subcutaneous -Post Debridement Size (cm) - Length 1.2 -Post Debridement Size (cm) - Width 1.6 -Post Debridement Size (cm) - Depth 0.2 -Total Square Cm 1.92 -Wound/Ulcer Outcome Not Healed -Ulcer Cleansing Rinsed/ Irrigated with Saline -Foul Odor after Cleansing No -Bioengineered Tissue No -Bleeding Controlled with Pressure -Offloading Yes -Type of Offloading Surgical Shoe -Treatment Response Procedure Tolerated Well [See Physician Procedure note for Specifics] Pain Scale: 0-10 Numeric [Pain] -Is Patient Pain Free? Yes Musculoskeletal: No Tenderness to Palpation of Joints or Extremities, Muscle Wasting, - - Transmetatarsal amputation left. Hallux amputation right Neurological: - - Lack of epicritic sensation light touch is consistent with neuropathy status Psych/Mental Status: Normal Affect, Appropriate Debridement Note Post-Debridement Measurements/Treatment WC - Nurse 2 - General Ulcer CM Notes Start: 06/15/19 11:17 Freq: Status: Active Protocol: Activity Type Activity Date Activity User E-Sign Co-Sign Detail Recorded Client Recorded Date Recorded By Document 06/15/19 11:48 NORRIS [id number] 06/15/19 11:57 NORRIS 06/15/19 11:48 Wound Center Nurse 2 #34 Lateral RLE -Time 11:49 -Correct Patient No -Correct Side, Site, Position No -Correct Procedure No -Procedure Performed No -Post Debridement Size (cm) - Length 0 -Post Debridement Size (cm) - Width 0 -Post Debridement Size (cm) - Depth 0 -Total Square Cm 0 -Wound/Ulcer Outcome Healed- Epithelialized -Ulcer Cleansing Rinsed/ Irrigated with Saline -Foul Odor after Cleansing No -Bioengineered Tissue No -Bleeding Controlled with Pressure -Offloading Yes -Type of Offloading Surgical Shoe -Treatment Response Procedure Tolerated Well #33 Right Bernstein -Correct Patient No -Correct Side, Site, Position No -Correct Procedure No -Procedure Performed No -Post Debridement Size (cm) - Length 0 -Post Debridement Size (cm) - Width 0 -Post Debridement Size (cm) - Depth 0 -Total Square Cm 0 -Wound/Ulcer Outcome Healed- Epithelialized #32- R HEEL -Time 11:50 -Correct Patient Yes -Correct Side, Site, Position Yes -Correct Procedure Yes -Procedure Performed Yes -Type of Procedure Debridement -Clinical Debridement Subcutaneous -Post Debridement Size (cm) - Length 4 -Post Debridement Size (cm) - Width 6.1 -Post Debridement Size (cm) - Depth 0.2 -Total Square Cm 24.4 -Wound/Ulcer Outcome Not Healed -Ulcer Cleansing Rinsed/ Irrigated with Saline -Foul Odor after Cleansing No -Bioengineered Tissue No -Bleeding Controlled with Pressure -Offloading Yes -Type of Offloading Surgical Shoe -Treatment Response Procedure Tolerated Well #31- L PLANTAR FOOT -Time 11:50 -Correct Patient Yes -Correct Side, Site, Position Yes -Correct Procedure Yes -Procedure Performed Yes -Type of Procedure Debridement -Clinical Debridement Subcutaneous -Post Debridement Size (cm) - Length 4.1 -Post Debridement Size (cm) - Width 6.6 -Post Debridement Size (cm) - Depth 0.3 -Total Square Cm 27.06 -Wound/Ulcer Outcome Not Healed -Ulcer Cleansing Rinsed/ Irrigated with Saline -Foul Odor after Cleansing No -Bioengineered Tissue No -Bleeding Controlled with Pressure -Offloading Yes -Type of Offloading Surgical Shoe -Treatment Response Procedure Tolerated Well 29-left anterior bernstein -Time 11:51 -Correct Patient No -Correct Side, Site, Position No -Correct Procedure No -Procedure Performed No -Post Debridement Size (cm) - Length 0 -Post Debridement Size (cm) - Width 0 -Post Debridement Size (cm) - Depth 0 -Total Square Cm 0 -Wound/Ulcer Outcome Healed- Epithelialized 27-right 2nd toe -Time 11:52 -Correct Patient Yes -Correct Side, Site, Position Yes -Correct Procedure Yes -Procedure Performed Yes -Type of Procedure Debridement -Clinical Debridement Subcutaneous -Post Debridement Size (cm) - Length 0.8 -Post Debridement Size (cm) - Width 0.5 -Post Debridement Size (cm) - Depth 0.1 -Total Square Cm 0.40 -Wound/Ulcer Outcome Not Healed -Ulcer Cleansing Rinsed/ Irrigated with Saline -Foul Odor after Cleansing No -Bioengineered Tissue No -Bleeding Controlled with Pressure -Offloading Yes -Type of Offloading Surgical Shoe -Treatment Response Procedure Tolerated Well #21 rt plantar medial foot -Time 11:52 -Correct Patient Yes -Correct Side, Site, Position Yes -Correct Procedure Yes -Procedure Performed Yes -Type of Procedure Debridement -Clinical Debridement Subcutaneous -Post Debridement Size (cm) - Length 1.2 -Post Debridement Size (cm) - Width 1.6 -Post Debridement Size (cm) - Depth 0.2 -Total Square Cm 1.92 -Wound/Ulcer Outcome Not Healed -Ulcer Cleansing Rinsed/ Irrigated with Saline -Foul Odor after Cleansing No -Bioengineered Tissue No -Bleeding Controlled with Pressure -Offloading Yes -Type of Offloading Surgical Shoe -Treatment Response Procedure Tolerated Well Pain Scale: 0-10 Numeric Is Patient Pain Free? Yes Wound debrided: heel plantar Laterality: Right Wound Grade/Stage: grade 3 Type of Debridement: Excisional debridement Anesthesia Used: 5% Lidocaine Gel Depth: in the subcutaneous layer Percentage of wound debrided: 100 Instrument Used: #15 blade Tissue Removed: fibrous, devitalized subcutaneous, biofilm, slough Severity: Fat Layer Exposed Amount of bleeding with debridement: Mild Bleeding Controlled with: Pressure Patient tolerated procedure well - Additional Wound Wound debrided: medial forefoot, dorsal 2nd toe Laterality: Right Wound Grade/Stage: grade 1 Type of Debridement: Excisional debridement Anesthesia Used: 5% Lidocaine Gel Depth: in the subcutaneous layer Percentage of wound debrided: 100 Instrument Used: #15 blade Tissue Removed: fibrous, devitalized subcutaneous, biofilm, slough Severity: Fat Layer Exposed Amount of bleeding with debridement: Mild Bleeding Controlled with: Pressure Patient tolerated procedure: Patient tolerated procedure well - Additional Wound Wound debrided: plantar foot Laterality: Left Wound Grade/Stage: grade 1 Type of Debridement: Excisional debridement Anesthesia Used: 5% Lidocaine Gel Depth: in the subcutaneous layer Percentage of wound debrided: 100 Instrument Used: #15 blade Tissue Removed: fibrous, devitalized subcutaneous, biofilm, slough Severity: Fat Layer Exposed Amount of bleeding with debridement: Mild Bleeding Controlled with: Pressure Patient tolerated procedure: Patient tolerated procedure well Assessment/Plan Assessment: Healed right leg blister. Left foot ulcer with resolved infection. Right forefoot medial plantar ulcer. left leg ulcer healed. Right heel ulcer stable. Right leg ulcer including a new 1 today. Left leg ulcer. Diabetes with neuropathy. lymphedema and continued leg swelling with recent exacerbation. peripheral vacular disease. venous insufficiency Plan: I discussed his case and treatment plan. Subcutaneous excisional debridement was performed to ulcer sites as noted in the nursing clinical panel to the right and left foot. His leg ulcer sites have healed and this is noted. To continue daily dressing changes with Aquacel. I recommended he continues with home health assistance. There will be limited other home health agencies available likely due to the carpio virus pandemic. Wound care orders have been and will continue to be communicated with home health agency. To maintain improved skin integrity by applying lac hydrin lotion to both legs daily. Continue circaid wraps bilateral legs daily; it is okay to apply tubigrip prior to application of CircAid foot wrap to better keep his wound dressings in place. To continue compression pump device daily; he is doing well with this. To proceed as previously advised with his lymphedema follow-up as advised. [facility] at this time. Farrow compression garments to promote improved continued edema management at a more proximal level was approved for right lower extremity use; to use as advised. To continue Lasix use as advised by primary care physician. To follow-up with primary care physician within the next month for progressive deconditioning status, edema management and also for medication refills. To complete the recommended primary care physician and physical therapy follow-up to work on deconditioning prevention and obtaining his hospital bed that was previously ordered. . To continue with portion control for weight loss and proper glycemic control and nutritional supplementation to optimize healing. His hemoglobin A1c went from 9.0 to 7.4. To continue strict offloading to all these ulcer sites. He has a donut offloading pillow and he was advised to use this. To follow-up with Dr. Peng as advised for the recommended bilateral intervention, venous. His recent vascular intervention in the left lower extremity is noted. All of his questions were answered. He understands he is still at risk for limb loss. It is noted he would likely be discharged home from the long term facility later this week. To continue with the recommended exercise regimen and diet protocol. To follow-up at the wound care center in 2 weeks or call sooner if he has any questions or concerns. A telehealth visit will be arranged for next week due to coronavirus pandemic. He would like to coordinate this when his home nurse is onsite. He is on a palliative care program.
[2019-06-29 10:38] VITALS: BP 153/66; PULSE 85; RESP 16; TEMP 36.3; BMI 51.9
--- NOTE | 2019-06-29 10:52 | PN.PCM_ITS ---
(1) Cellulitis of left foot Status: Deleted Current Visit: Yes Code(s): L03.116 - Cellulitis of left lower limb (2) Lymphedema Status: Chronic Current Visit: Yes Code(s): I89.0 - Lymphedema, not else where classified (3) Venous insufficiency Status: Chronic Current Visit: Yes Code(s): I87.2 - Venous insufficiency (chronic) (peripheral) (4) Ulcer of right foot with fat layer exposed Status: Deleted Current Visit: Yes Code(s): L97.512 - Non-pressure chronic ulcer of other part of right foot with fat layer exposed (5) Non-pressure chronic ulcer of other part of left foot with fat layer exposed Status: Deleted Current Visit: Yes Code(s): L97.522 - Non-pressure chronic ulcer of other part of left foot with fat layer exposed (6) Lower extremity edema Status: Deleted Current Visit: Yes Code(s): R60.0 - Localized edema (7) Type 2 diabetes mellitus with diabetic polyneuropathy Status: Chronic Current Visit: Yes Qualifiers: Code(s): E11.42 - Type 2 diabetes mellitus with diabetic polyneuropathy (8) Malnutrition Status: Deleted Current Visit: Yes Code(s): E46 - Unspecified protein- calorie malnutrition Type of Wound Date of Service: 06/29/19 Chief Complaint: Ulcer right second toe. right medial forefoot ulcer. Right heel ulcers. Left foot ulcer now with cellulitis History of Wound: 64 year old male was seen for right heel ulcer with chronic osteomyelitis, right plantar heel ulcer, right forefoot ulcers. He is also following up for a left heel ulcer that has progressive redness, swelling, green discharge, copious drainage that has been getting worse over the past week. He now resides at home and has assistance of home health for dressing care. The home health nurse has been cleaning this with Hibiclens. He denies fever, chill, nausea, vomiting, loss of appetite. He reports new onset of low-grade fever of in the 99 range and he also has the onset of a new cough this past month. He also relates his chest is congested. Progress of Wound: Right foot ulcer is improving. Left heel ulcer is worse and now with signs of infection - Physical Exam Vital Signs Temp Pulse Resp BP 98.3 F 63 18 134/54 H 06/15/19 00:21 06/15/19 00:21 06/15/19 00:21 06/15/19 00:21 General: Alert, Oriented x3, Cooperative, No apparent distress HEENT: Atraumatic Extremities: No cyanosis, Capillary Refill Less than 3 Seconds, No Calf Tenderness - Negative Simmons sign bilateral, Diminished Peripheral Pulses, Edema Skin: Ulcer/ Wound - Right foot ulcers x3 have granular base and are relatively healthy in appearance. The adjacent skin is hairless and atrophic. There is no maceration necrosis or infection to the right lower extremity. The left foot has increased edema and erythema extending onto the ankle level with macerated bulla extending from the plantar foot ulcer now to the lateral dorsal aspect of the foot. The foot is warm to touch and does not have any palpable fluctuance or bogginess on palpation. The compartments of the left lower extremity remain soft. There is no distinct odor however it is noticed that there is copious amounts of greenish-yellow discharge. There is no purulence on expression. 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 Neurological: - - Lack of epicritic sensation is consistent with neuropathy status Psych/Mental Status: Normal Affect, Appropriate Debridement Note Post-Debridement Measurements/Treatment WC - Nurse 2 - General Ulcer CM Notes Start: 06/15/19 11:17 Freq: Status: Active Protocol: Activity Type Activity Date Activity User E-Sign Co-Sign Detail Recorded Client Recorded Date Recorded By Document 06/15/19 11:48 NORRIS [id number] 06/15/19 11:57 NORRIS 06/15/19 11:48 Wound Center Nurse 2 #34 Lateral RLE -Time 11:49 -Correct Patient No -Correct Side, Site, Position No -Correct Procedure No -Procedure Performed No -Post Debridement Size (cm) - Length 0 -Post Debridement Size (cm) - Width 0 -Post Debridement Size (cm) - Depth 0 -Total Square Cm 0 -Wound/Ulcer Outcome Healed- Epithelialized -Ulcer Cleansing Rinsed/ Irrigated with Saline -Foul Odor after Cleansing No -Bioengineered Tissue No -Bleeding Controlled with Pressure -Offloading Yes -Type of Offloading Surgical Shoe -Treatment Response Procedure Tolerated Well #33 Right Parker -Correct Patient No -Correct Side, Site, Position No -Correct Procedure No -Procedure Performed No -Post Debridement Size (cm) - Length 0 -Post Debridement Size (cm) - Width 0 -Post Debridement Size (cm) - Depth 0 -Total Square Cm 0 -Wound/Ulcer Outcome Healed- Epithelialized #32- R HEEL -Time 11:50 -Correct Patient Yes -Correct Side, Site, Position Yes -Correct Procedure Yes -Procedure Performed Yes -Type of Procedure Debridement -Clinical Debridement Subcutaneous -Post Debridement Size (cm) - Length 4 -Post Debridement Size (cm) - Width 6.1 -Post Debridement Size (cm) - Depth 0.2 -Total Square Cm 24.4 -Wound/Ulcer Outcome Not Healed -Ulcer Cleansing Rinsed/ Irrigated with Saline -Foul Odor after Cleansing No -Bioengineered Tissue No -Bleeding Controlled with Pressure -Offloading Yes -Type of Offloading Surgical Shoe -Treatment Response Procedure Tolerated Well #31- L PLANTAR FOOT -Time 11:50 -Correct Patient Yes -Correct Side, Site, Position Yes -Correct Procedure Yes -Procedure Performed Yes -Type of Procedure Debridement -Clinical Debridement Subcutaneous -Post Debridement Size (cm) - Length 4.1 -Post Debridement Size (cm) - Width 6.6 -Post Debridement Size (cm) - Depth 0.3 -Total Square Cm 27.06 -Wound/Ulcer Outcome Not Healed -Ulcer Cleansing Rinsed/ Irrigated with Saline -Foul Odor after Cleansing No -Bioengineered Tissue No -Bleeding Controlled with Pressure -Offloading Yes -Type of Offloading Surgical Shoe -Treatment Response Procedure Tolerated Well 29-left anterior parker -Time 11:51 -Correct Patient No -Correct Side, Site, Position No -Correct Procedure No -Procedure Performed No -Post Debridement Size (cm) - Length 0 -Post Debridement Size (cm) - Width 0 -Post Debridement Size (cm) - Depth 0 -Total Square Cm 0 -Wound/Ulcer Outcome Healed- Epithelialized 27-right 2nd toe -Time 11:52 -Correct Patient Yes -Correct Side, Site, Position Yes -Correct Procedure Yes -Procedure Performed Yes -Type of Procedure Debridement -Clinical Debridement Subcutaneous -Post Debridement Size (cm) - Length 0.8 -Post Debridement Size (cm) - Width 0.5 -Post Debridement Size (cm) - Depth 0.1 -Total Square Cm 0.40 -Wound/Ulcer Outcome Not Healed -Ulcer Cleansing Rinsed/ Irrigated with Saline -Foul Odor after Cleansing No -Bioengineered Tissue No -Bleeding Controlled with Pressure -Offloading Yes -Type of Offloading Surgical Shoe -Treatment Response Procedure Tolerated Well #21 rt plantar medial foot -Time 11:52 -Correct Patient Yes -Correct Side, Site, Position Yes -Correct Procedure Yes -Procedure Performed Yes -Type of Procedure Debridement -Clinical Debridement Subcutaneous -Post Debridement Size (cm) - Length 1.2 -Post Debridement Size (cm) - Width 1.6 -Post Debridement Size (cm) - Depth 0.2 -Total Square Cm 1.92 -Wound/Ulcer Outcome Not Healed -Ulcer Cleansing Rinsed/ Irrigated with Saline -Foul Odor after Cleansing No -Bioengineered Tissue No -Bleeding Controlled with Pressure -Offloading Yes -Type of Offloading Surgical Shoe -Treatment Response Procedure Tolerated Well Pain Scale: 0-10 Numeric Is Patient Pain Free? Yes Wound debrided: plantar foot Laterality: Left Wound Grade/Stage: grade 1 Type of Debridement: Excisional debridement Anesthesia Used: 5% Lidocaine Gel Depth: in the subcutaneous layer Percentage of wound debrided: 100 Instrument Used: #15 blade Tissue Removed: fibrous, devitalized subcutaneous, biofilm, slough Severity: Fat Layer Exposed Amount of bleeding with debridement: Mild Bleeding Controlled with: Pressure Patient tolerated procedure well - Additional Wound Wound debrided: plantar heel Laterality: Right Wound Grade/Stage: grade 3 Type of Debridement: Excisional debridement Anesthesia Used: 5% Lidocaine Gel Depth: in the subcutaneous layer - Hello Percentage of wound debrided: 100 Instrument Used: #15 blade Tissue Removed: fibrous, devitalized subcutaneous, biofilm, slough Severity: Fat Layer Exposed Amount of bleeding with debridement: Mild Bleeding Controlled with: Pressure Patient tolerated procedure: Patient tolerated procedure well - Additional Wound Wound debrided: medial plantar forefoot and dorsal 2nd toe Laterality: Right Wound Grade/Stage: grade 1 Type of Debridement: Excisional debridement Anesthesia Used: 5% Lidocaine Gel Depth: in the subcutaneous layer Percentage of wound debrided: 100 Instrument Used: #15 blade Tissue Removed: fibrous, devitalized subcutaneous, biofilm, slough Severity: Fat Layer Exposed Amount of bleeding with debridement: Mild Bleeding Controlled with: Pressure Patient tolerated procedure: Patient tolerated procedure well Assessment/Plan Active Problems Diabetic foot infection (Acute) Lymphedema (Chronic) Venous insufficiency (Chronic) Type 2 diabetes mellitus with diabetic polyneuropathy (Chronic) Assessment: Left foot ulcer with returned infection. Right forefoot medial plantar ulcer. Right heel ulcer stable. Diabetes with neuropathy. lymphedema and continued leg swelling with recent exacerbation. peripheral vacular disease. venous insufficiency Plan: I discussed his case and treatment plan. Subcutaneous excisional debridement was performed to ulcer sites as noted in the nursing clinical panel to the right and left foot. He has clinical progression and worsening status of the left foot with redness extending to the ankle level, increased swelling, increased maceration and blister formation now to the lateral aspect of the foot, eschar development on the plantar aspect of the foot. He also reports having a low-grade fever this morning (mid 99) which was obtainable he was transporting to the wound healing center. He also has a cough. From a foot standpoint, I do recommend admission for IV antibiotics and further work-up of his left foot infection. He is moderate to high risk and his erythema far exceeds a 2 cm margin which is a concern. He also has history of recurrent infections with multiple drug antibiotic resistances. At this current time there is a coronavirus pandemic going on. He does also meet clinical signs that are concerning. I have called the hospital to confirm the most appropriate process and talk to Dr. Downey and ER physician, Dr. Zhou. The patient will go through the emergency room so he can go through the appropriate medical work up and screening as well as start the admission process for his foot. He will be admitted to the hospitalist service and I will be on consultation. I recommend the initiation of IV antibiotics and infectious disease consultation. Cultures were obtained in clinic including aerobic, anaerobic, and MRSA PCR after debridement and saline rinse was performed. I also recommend updating x- rays of the foot if possible. Labs will be ordered including CBC, CMP, ESR, CRP. To continue strict elevation of the involved limb and continued offload ing. I will follow him close while in house.
[2019-06-29 14:47] LABS: M R Staph aureus DNA By PCR Negative (Negative); Probe Check PASS; Staph aureus DNA By PCR POSITIVE (Negative)
== END 2019-07-14 23:59 ==
LOC: WC 10:30
PROVIDERS: Family Provider Family Medicine; PCP Family Medicine; Referring Provider Podiatrist; Visit Provider Podiatrist
DX: E11.621 Type 2 diabetes mellitus with foot ulcer (principal); L97.412 Non-pressure chronic ulcer of right heel and midfoot with fat layer exposed; L97.512 Non-pressure chronic ulcer of other part of right foot with fat layer exposed; L97.822 Non-pressure chronic ulcer of other part of left lower leg with fat layer exposed; L97.812 Non-pressure chronic ulcer of other part of right lower leg with fat layer exposed; I73.89 Other specified peripheral vascular diseases; E11.42 Type 2 diabetes mellitus with diabetic polyneuropathy; E46 Unspecified protein-calorie malnutrition; I89.0 Lymphedema, not elsewhere classified; I87.2 Venous insufficiency (chronic) (peripheral)
CPT/HCPCS: 11042; 11045; 87070; 87075; 87077; 87186; 87205; 87640

== ENCOUNTER 2019-06-29 11:32 | Inpatient (IN) | payer MEDICARE, MEDICAID, SELFPAY ==
[2019-06-29] VITALS (8 sets, daily range): BP systolic 118–155; BP diastolic 40–66; PULSE 57–83; RESP 17–18; TEMP 36.9–37.4; O2SAT 96–98; BMI 51.9; BMI 49.8; BMI 51.0; BMI 51.1
--- NOTE | 2019-06-29 11:56 | RAD_ITS ---
STUDY: X-RAY - LEFT FOOT CLINICAL: Male, 64 years old. diabetic, wound TECHNIQUE: 3 view(s) of the foot. COMPARISON: May 02, 2019. FINDINGS: First through fifth transmetatarsal amputations. Soft tissue swelling with ulceration overlying the fifth digit. No acute bone destruction. No acute fracture. No acute dislocation. Mild/moderate hindfoot arthrosis. Vascular calcifications. RAD/Foot min 3 Views IMPRESSION: No radiographic evidence of acute osteomyelitis Soft tissue swelling with lateral ulceration First through fifth digit transmetatarsal amputations Electronically Signed: Brady Gamboa DO at 13:46 EDT Tel , Service support ,
--- NOTE | 2019-06-29 11:59 | ED.DCSUM_ITS ---
History of Present Illness Chief Complaint: Wound Informant: Patient Onset: Weeks Context: Gradual Onset Current Severity: Moderate Maximum Severity: Moderate Narrative: Patient presents to the wound center secondary to left foot infection. I spoke with the physician there who states patient is moderate to high risk and will need to be admitted for IV antibiotics. She was told the patient also had cough and low-grade fever at home and due to concern for COVID sent the patient through the ER for screening prior to admission. Patient tells me he has not had a fever. He has a home nurse who checks his temperature regularly. He has had a cough for the past 1 month with white-colored sputum. He states his left foot wounds got worse on June 14 and has had green discharge from the wounds. He is not currently on antibiotics at home. - Past Medical History (1) Lymphedema Status: Chronic (2) Type 2 diabetes mellitus with diabetic polyneuropathy Status: Chronic (3) Venous insufficiency Status: Chronic (4) Peripheral vascular disease Status: Chronic Past Medical History - Allergies and Home Meds Allergies/Adverse Reactions: Allergies ciprofloxacin [From Cipro] Allergy (Verified 06/29/19 11:34) Rash he has tolerated oral cipro in the past levofloxacin [From Levaquin] Allergy (Verified 06/29/19 11:34) Hives Penicillins Allergy (Verified 06/29/19 11:34) Hives silver Allergy (Verified 06/29/19 11:34) Rash Skin márquez and itches, rash Prior records reviewed: Yes Surgical History: - - history of b/l great toe amputations, partial left little toe amputation, heel debridements and calcaneus bone biopsy Lives: Alone Smoking Status: Never smoker - Family History Maternal Family History: Reports: Diabetes, Hypertension Paternal Family History: Reports: - - from being hit by car Review of Systems General: Denies: Chills, Fever Eyes: Denies: Visual changes - bilaterally ENT: Denies: Bilateral ear pain Cardiovascular: Denies: Chest pain Respiratory: Reports: Cough, Sputum. Denies: Dyspnea Gastrointestinal: Denies: Abdominal pain, Nausea, Vomiting, Diarrhea Genitourinary: Denies: Dysuria Skin: Reports: Wounds Neurological: Denies: Headache Hematologic: Denies: Easy bruising, Easy bleeding Allergy: Denies: Uticaria Physical Exam Vital Signs/Narrative: Vital Signs Temp Pulse Resp BP Pulse Ox 06/29/19 11:34 98.8 F 82 17 133/46 H 98 Inital Vital Signs reviewed: Yes General: Well nourished, Well developed Head: Normocephalic ENT: Moist mucous membranes Neck: Supple Cardiovascular: Regular rate, Regular rhythm Respiratory: No distress, CTA bilaterally Abdomen: Soft, Nontender Extremities: - - Left lower extremity examination reveals prior amputation of toes in the left foot. Patient does have blistering type lesion noted to the lateral and inferior surface of the left foot. There is some oozing of serosanguineous material. Neurological: Alert, Oriented x3 Psychological: Normal affect Diagnostic/Tx/Re-eval Impressions Foot X-Ray 06/29/19 11:56 IMPRESSION: No radiographic evidence of acute osteomyelitis Soft tissue swelling with lateral ulceration First through fifth digit transmetatarsal amputations Electronically Signed: Brady Gamboa DO at 13:46 EDT Tel , Service support , Chest X-Ray 06/29/19 13:25 IMPRESSION: Cardiomegaly with mild vascular congestion Left retrocardiac hazy airspace disease (statistically edema) Electronically Signed: Brady Gamboa DO at 13:47 EDT Tel , Service support , 06/29/19 11:56 Foot min 3 Views [RAD] Stat 06/29/19 13:25 Chest 1 View (Portable) [RAD] Stat Laboratory Results 06/29/19 06/29/19 12:28 12:28 WBC 14.6 H RBC 3.72 L Hgb 9.8 L Hct 31.6 L MCV 84.9 MCH 26.3 L MCHC 31.0 L RDW Std Deviation 46.0 H RDW Coeff of Pool 15.0 H Plt Count 307 MPV 10.1 Immature Gran % (Auto) 0.600 Neut % (Auto) 81.4 H Lymph % (Auto) 8.7 L [place] % (Auto) 7.9 Eos % (Auto) 1.3 Baso % (Auto) 0.1 Absolute Neuts (auto) 11.9 H Absolute Lymphs (auto) 1.26 Nucleated RBC % 0 ESR 109 H Sodium 133 L Potassium 5.1 Chloride 104 Carbon Dioxide 23.0 Anion Gap 6 BUN 56 H Creatinine 2.29 H Estim Creat Clear Calc 41.07 Est GFR (MDRD) Af Amer 37 L Est GFR (MDRD) Non-Af 31 L BUN/Creatinine Ratio 24.5 H Glucose 186 H Calcium 9.1 C-React Prot Ext Range 171.00 H - Medical Decision Making Patient's prior admissions were reviewed. He is given cefepime and vancomycin which worked well on his last admission. Chest x-ray shows some mild vascular congestion but no focal infiltrate. Patient advises me that he has not had a fever and has had this cough present for the last 1 month. My suspicion for COVID-19 is low. Patient will be discussed with the hospitalist for admission and treatment of his left foot infection. ED Disposition - Plan for ED Patient: Disposition: Home or Assisted Living Diagnosis: Diabetic foot infection
[2019-06-29 12:40] LABS: Erythrocyte Sedimentation Rate 109 mm/hr (0-20)
[2019-06-29 12:42] LABS: Absolute Lymphocyte Count 1.26 X10^3/uL (0.83-4.51); Absolute Neutrophil Count 11.9 X10^3/uL (2.0-7.7); Basophil# 0.02 X10^3/uL; Basophil% 0.1 % (0-1); Eosinophil# 0.19 X10^3/uL; Eosinophils% 1.3 % (0-5); Hematocrit 31.6 % (40-54); Hemoglobin 9.8 g/dL (13.0-16.5); Lymphocyte # 1.26 X10^3/ul (4.0); Lymphocyte % 8.7 % (19-41); Mean Corpuscular Hgb 26.3 pg (27.0-32.0); Mean Corpuscular Volume 84.9 fL (80-94); Mean Platelet Vol. 10.1 fl (6.2-12.0); Monocyte# 1.15 X10^3/uL; Monocyte% 7.9 % (0-10); NRBC Flagged by Analyzer 0 % (0-5); Neutrophil # 11.85 X10^3/uL (2.7-7.7); Neutrophil % 81.4 % (47-70); Platelet Count 307 K/mm3 (150-450); Red Blood Count 3.72 M/mm3 (4.6-6.2); White Blood Count 14.6 K/mm3 (4.4-11.0)
[2019-06-29 12:49] LABS: Anion Gap 6 (5-15); BUN 56 mg/dL (7-18); BUN/Creat Ratio 24.5 RATIO (10-20); Calcium,Total 9.1 mg/dL (8.5-10.1); Chloride 104 mmol/L (98-107); Creatinine, Serum 2.29 mg/dL (0.70-1.30); EST Glomerular Filtration Rate 31 mL/min (>60); Est Glom Filt Rate - Afr Amer 37 mL/min (>60); Estimated Creatinine Clearance 41.07 ml/min; Glucose 186 mg/dL (74-106); Potassium 5.1 mmol/L (3.5-5.1); Sodium Level 133 mmol/L (136-145)
--- NOTE | 2019-06-29 13:25 | RAD_ITS ---
STUDY: X-RAY CHEST REASON FOR EXAM: Male, 64 years old. cough x3 weeks TECHNIQUE: Single AP portable view of the chest. COMPARISON: June 05, 2017. FINDINGS: Cardiomegaly. Aorta unremarkable. Left retrocardiac airspace disease. Mild hazy airspace disease/congestion. Upper abdomen unremarkable. Osseous structures intact. No pneumothorax. RAD/Chest 1 View (Portable) IMPRESSION: Cardiomegaly with mild vascular congestion Left retrocardiac hazy airspace disease (statistically edema) Electronically Signed: Brady Gamboa DO at 13:47 EDT Tel , Service support ,
--- NOTE | 2019-06-29 14:22 | NURSING ---
MED SURG DIABETIC FOOT INFECTION [facility]
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
[2019-06-29] MEDS: HYDROcodone Bitartrate/Apap 5/325 Tablet PO (14:50)
--- NOTE | 2019-06-29 16:02 | PCM.RX.CS ---
Consult Pharmacy has been consulted to manage selected antiobiotic: Vancomycin Type of Consult: New start Suspected Infection: Skin/Soft tissue Prior Doses of Antibiotics Received/Current Regimen: Received 2gm iv x 1 on 06.29.19. Labs: Sodium 133 mmol/L (136-145) L 06/29/19 12:28 Potassium 5.1 mmol/L (3.5-5.1) 06/29/19 12:28 Chloride 104 mmol/L (98-107) 06/29/19 12:28 Carbon Dioxide 23.0 mmol/L (21.0-32.0) 06/29/19 12:28 Anion Gap 6 (5-15) 06/29/19 12:28 BUN 56 mg/dL (7-18) H 06/29/19 12:28 Creatinine 2.29 mg/dL (0.70-1.30) H 06/29/19 12:28 Est GFR (MDRD) Af Amer 37 mL/min (>60) L 06/29/19 12:28 Est GFR (MDRD) Non-Af 31 mL/min (>60) L 06/29/19 12:28 BUN/Creatinine Ratio 24.5 RATIO (10-20) H 06/29/19 12:28 Glucose 186 mg/dL (74-106) H 06/29/19 12:28 Weight used for dosin.4 kg Estimated Creatinine Clearance: ~59 Goal Trough: 10-15 mcg/mL Pharmacy Plan for Drug Dosing: Reviewed renal function. CrCl calculated to be ~59 for adjusted body weight. Will start dosing of 1gm iv q12h. Trough level ordered for before 4th total dose on 07.01.19. Pharmacy Service will continue to monitor and adjust dosing as required. Follow-Up Labs: Trough Vancomycin - 07.01.19 @0130 before 0200 dose
[2019-06-29 16:37] LABS: Hemoglobin A1c 8.2 % (4.2-6.3)
[2019-06-29 17:06] LABS: Bedside Glucose 181 mg/dL (70-110)
[2019-06-29] MEDS: 0.9% Normal Saline 1,000 ML 100 ML IV (17:36)
[2019-06-29] MEDS: Insulin Lispro 100 UNIT/ML INSULN.PEN SC (17:39)
[2019-06-29] MEDS: Insulin Lispro 100 UNIT/ML INSULN.PEN 30 UNIT SC (17:39)
[2019-06-29] MEDS: amLODIPine 5 MG Tablet PO (17:44)
[2019-06-29] MEDS: Lisinopril 10 MG Tablet PO (17:44)
[2019-06-29] MEDS: Metoprolol(XL)Succ 50 MG Tablet PO (17:44)
[2019-06-29 18:44] LABS: M R Staph aureus DNA By PCR Negative (Negative); Staph aureus DNA By PCR POSITIVE (Negative)
[2019-06-29 18:45] LABS: M R Staph aureus DNA By PCR Negative (Negative); Probe Check PASS; Staph aureus DNA By PCR POSITIVE (Negative)
[2019-06-29] MEDS: Insulin NPH Human 100 UNITS/ML PEN 40 UNITS SC (19:35)
[2019-06-29 23:16] LABS: Bedside Glucose 123 mg/dL (70-110)
[2019-06-29] MEDS: Acetaminophen 325 MG Tablet 650 MG PO (23:17)
[2019-06-29] MEDS: Heparin Injection (Vial) 5,000 UNIT/ML VIAL 5000 UNIT SC (23:17)
[2019-06-29] MEDS: Glucerna Shake 120 ML LIQUID PO (23:18)
[2019-06-30] VITALS (8 sets, daily range): BP systolic 122–152; BP diastolic 36–54; PULSE 58–77; RESP 18; TEMP 36.9–37; O2SAT 92–97
[2019-06-30] MEDS: Vancomycin IV 1,000 MG/200 ML BAG 200 MG IV ×2 (02:18→14:05)
[2019-06-30] MEDS: 0.9% Normal Saline 1,000 ML 100 ML IV (05:18)
[2019-06-30 05:32] LABS: Absolute Lymphocyte Count 0.98 X10^3/uL (0.83-4.51); Absolute Neutrophil Count 5.7 X10^3/uL (2.0-7.7); Basophil# 0.03 X10^3/uL; Basophil% 0.4 % (0-1); Eosinophil# 0.34 X10^3/uL; Eosinophils% 4.4 % (0-5); Hematocrit 26.4 % (40-54); Hemoglobin 8.1 g/dL (13.0-16.5); Lymphocyte # 0.98 X10^3/ul (4.0); Lymphocyte % 12.6 % (19-41); Mean Corp Hgb Conc 30.7 g/dL (32-36); Mean Corpuscular Hgb 26.3 pg (27.0-32.0); Mean Corpuscular Volume 85.7 fL (80-94); Mean Platelet Vol. 10.3 fl (6.2-12.0); NRBC Flagged by Analyzer 0 % (0-5); Neutrophil # 5.66 X10^3/uL (2.7-7.7); Platelet Count 204 K/mm3 (150-450); RBC Distribution Width CV 15.2 % (11.6-14.6); RBC Distribution Width SD 47.9 fl (35.1-43.9); Red Blood Count 3.08 M/mm3 (4.6-6.2); White Blood Count 7.8 K/mm3 (4.4-11.0)
[2019-06-30 05:51] LABS: Anion Gap 7 (5-15); BUN 57 mg/dL (7-18); BUN/Creat Ratio 26.4 RATIO (10-20); Calcium,Total 8.4 mg/dL (8.5-10.1); Chloride 108 mmol/L (98-107); Creatinine, Serum 2.16 mg/dL (0.70-1.30); EST Glomerular Filtration Rate 33 mL/min (>60); Est Glom Filt Rate - Afr Amer 40 mL/min (>60); Estimated Creatinine Clearance 43.54 ml/min; Glucose 169 mg/dL (74-106); Sodium Level 137 mmol/L (136-145)
[2019-06-30 08:21] LABS: Bedside Glucose 159 mg/dL (70-110)
[2019-06-30 09:03] LABS: Iron 17 ug/dL (65-175); Iron Binding Capacity,Total 159 ug/dL (250-450); PERCENT IRON SATURATION 10.7 % (15.0-55.0); Thyroid Stim Hormone (TSH) 2.74 uIU/mL (0.358-3.74)
--- NOTE | 2019-06-30 09:14 | NURSING ---
wound photo: left foot (medial view)
--- NOTE | 2019-06-30 09:15 | NURSING ---
wound photo: left foot
--- NOTE | 2019-06-30 09:15 | NURSING ---
wound photo: right foot
--- NOTE | 2019-06-30 09:16 | NURSING ---
wound photo: right heel
--- NOTE | 2019-06-30 09:19 | NURSING ---
wound photo: left foot
[2019-06-30] MEDS: Ascorbic Acid 500 MG Tablet PO (09:28)
[2019-06-30] MEDS: Insulin Lispro 100 UNIT/ML INSULN.PEN 30 UNIT SC ×3 (09:29→18:04)
[2019-06-30] MEDS: Glucerna Shake 120 ML LIQUID PO (09:51)
[2019-06-30] MEDS: Metoprolol(XL)Succ 50 MG Tablet PO (09:52)
[2019-06-30] MEDS: Lisinopril 10 MG Tablet PO (09:52)
[2019-06-30] MEDS: Heparin Injection (Vial) 5,000 UNIT/ML VIAL 5000 UNIT SC (09:53)
[2019-06-30] MEDS: hydrALAZINE 50 MG Tablet PO ×2 (09:53→22:16)
[2019-06-30] MEDS: amLODIPine 5 MG Tablet PO (09:59)
[2019-06-30] MEDS: Acetaminophen 325 MG Tablet 650 MG PO ×2 (10:01→17:45)
--- NOTE | 2019-06-30 11:00 | PN_ITS ---
<Quintin Polanco - Last Filed: 06/30/19 11:00> Patient Problems: Active and Suspected Problems Diabetic foot infection (Acute) Reason for Visit: foot infection Subjective: No fever/ chills. Minimal pain. Chronic productive cough. No SOB. Lungs clear. Vitals/I&O's: Vital Signs Temp Pulse Resp BP Pulse Ox 98.4 F 73 18 152/50 H 97 06/30/19 09:32 06/30/19 09:53 06/30/19 09:32 06/30/19 09:53 06/30/19 09:32 Oxygen Delivery Method Room Air Weight: 430 lb 12.532 oz Body Mass Index (BMI) 51.0 Finger Stick Blood Glucose 222 Intake and Output for Last 24 Hours 06/28/19 06/29/19 06/30/19 23:59 23:59 23:59 Intake Total 1310 / 1610 1130.00 / 1130.00 Output Total 750 / 750 Balance 1310 / 1210 380.00 / 380.00 General: Alert, Oriented x3, Cooperative HEENT: Atraumatic, PERRLA, EOMI, Normocephalic Neck: Supple, No JVD, Negative Carotid Bruits Lungs: Clear to auscultation, Normal air movement Cardiovascular: Regular rate, No murmurs Abdomen: Bowel Sounds Present, Soft, Non Tender, Obese Extremities: No edema, Capillary Refill Less than 3 Seconds Skin: No rashes, No breakdown Musculoskeletal: No Tenderness to Palpation of Joints or Extremities Neurological: Cranial nerves II-XII grossly intact Psych/Mental Status: Normal Affect, Appropriate, Alert and oriented to time, place, person, mood and affect Laboratory Results 06/29/19 12:28: WBC 14.6 H, RBC 3.72 L, Hgb 9.8 L, Hct 31.6 L, MCV 84.9, MCH 26.3 L, MCHC 31.0 L, RDW Std Deviation 46.0 H, RDW Coeff of Pool 15.0 H, Plt Count 307, MPV 10.1, Immature Gran % (Auto) 0.600, Neut % (Auto) 81.4 H, Lymph % (Auto) 8.7 L, [place] % (Auto) 7.9, Eos % (Auto) 1.3, Baso % (Auto) 0.1, Absolute Neuts (auto) 11.9 H, Absolute Lymphs (auto) 1.26, Nucleated RBC % 0, ESR 109 H 06/29/19 12:28: Sodium 133 L, Potassium 5.1, Chloride 104, Carbon Dioxide 23.0, Anion Gap 6, BUN 56 H, Creatinine 2.29 H, Estim Creat Clear Calc 41.07, Est GFR (MDRD) Af Amer 37 L, Est GFR (MDRD) Non-Af 31 L, BUN/Creatinine Ratio 24.5 H, Glucose 186 H, Calcium 9.1, C-React Prot Ext Range 171.00 H 06/29/19 12:28: Hemoglobin A1c 8.2 H 06/29/19 16:25: S.aureus Protein A PCR POSITIVE H, MRSA (PCR) Negative 06/29/19 16:25: S.aureus Protein A PCR POSITIVE H, MRSA (PCR) Negative 06/29/19 16:59: POC Glucose 181 H 06/29/19 23:08: POC Glucose 123 H 06/30/19 05:04: WBC 7.8, RBC 3.08 L, Hgb 8.1 L, Hct 26.4 L, MCV 85.7, MCH 26.3 L , MCHC 30.7 L, RDW Std Deviation 47.9 H, RDW Coeff of Pool 15.2 H, Plt Count 204, MPV 10.3, Immature Gran % (Auto) 0.600, Neut % (Auto) 73.0 H, Lymph % (Auto) 12.6 L, [place] % (Auto) 9.0, Eos % (Auto) 4.4, Baso % (Auto) 0.4, Absolute Neuts (auto) 5.7, Absolute Lymphs (auto) 0.98, Nucleated RBC % 0 06/30/19 05:04: Sodium 137, Potassium 5.0, Chloride 108 H, Carbon Dioxide 22.0, Anion Gap 7, BUN 57 H, Creatinine 2.16 H, Estim Creat Clear Calc 43.54, Est GFR (MDRD) Af Amer 40 L, Est GFR (MDRD) Non-Af 33 L, BUN/Creatinine Ratio 26.4 H, Glucose 169 H, Calcium 8.4 L 06/30/19 05:04: Iron 17 L, TIBC 159 L, Iron Saturation 10.7 L, TSH 2.74 06/30/19 08:13: POC Glucose 159 H Current Medications Acetaminophen (Tylenol) 650 mg PO Q6H PRN PRN PRN Reason: Pain Score 1-10/Temp > 100.7 F Last Admin: 06/30/19 10:01 Dose: 650 mg Documented by: Amlodipine Besylate (Norvasc) 5 mg PO DAILY [facility] Last Admin: 06/30/19 09:59 Dose: 5 mg Documented by: Ascorbic Acid (Vitamin C) 500 mg PO DAILY@0800 [facility] Last Admin: 06/30/19 09:28 Dose: 500 mg Documented by: Glucagon () 1 mg IM .X1 PRN PRN Reason: Hypoglycemia Guaifenesin (Robitussin) 20 ml PO Q4H PRN PRN PRN Reason: COUGH Heparin Sodium (Porcine) (Heparin Na) 5,000 unit SC Q12 [facility] Last Admin: 06/30/19 09:53 Dose: 5,000 unit Documented by: Hydralazine HCl (Apresoline) 50 mg PO BID [facility] Last Admin: 06/30/19 09:53 Dose: 50 mg Documented by: Sodium Chloride () 1,000 mls @ 100 mls/hr IV .Q10H [facility] Stop: 06/30/19 11:09 Last Admin: 06/30/19 05:18 Dose: 100 mls/hr Documented by: Cefepime HCl 2 gm/ Sodium (Chloride) 100 mls @ 200 mls/hr IV Q12 [facility] Last Infusion: 06/29/19 23:48 Dose: Infused Documented by: Dextrose (Dextrose 10%-Water) 250 mls @ 999 mls/hr IV .Q16M PRN; Protocol PRN Reason: HYPOGLYCEMIA Vancomycin IV Pharmacy to Dose (1 ea/ Sodium Chloride) 500 mls @ 250 mls/hr IV PRN PRN; Protocol PRN Reason: Rx to Dose Sodium Chloride () 250 mls @ 15 mls/hr IV .[id number] PRN PRN Reason: Saline Flush Sodium Chloride () 250 mls @ 15 mls/hr IV .[id number] PRN PRN Reason: Additional IVPB Infusion Vancomycin HCl (Vancomycin) 1,000 mg in 200 mls @ 200 mls/hr IV Q12H [facility] Last Infusion: 06/30/19 03:18 Dose: Infused Documented by: Insulin Human Lispro (Humalog Kwikpen (Bkc)) 0 unit SC ACHS [facility]; Protocol Last Admin: 06/30/19 09:27 Dose: Not Given Documented by: Insulin Human Lispro (Humalog Kwikpen (Bk)) 30 unit SC 0800,1200,1700 [facility] Last Admin: 06/30/19 09:29 Dose: 15 units Documented by: Insulin Human NPH (Humulin N ([facility])) 40 units SC 1700 [facility] Last Admin: 06/29/19 19:35 Dose: 40 units Documented by: Lisinopril (Zestril) 10 mg PO DAILY [facility] Last Admin: 06/30/19 09:52 Dose: 10 mg Documented by: Metoprolol Succinate (Toprol Xl (Beta Marshall)) 50 mg PO DAILY [facility] Last Admin: 06/30/19 09:52 Dose: 50 mg Documented by: Morphine Sulfate () 2 mg IV Q3H PRN PRN PRN Reason: Pain Score 6-10/10 Nutritional Formula (Lactose Free) (Glucerna Shake) 120 ml PO 4X/DAY [facility] Last Admin: 06/30/19 09:51 Dose: 120 ml Documented by: Ondansetron HCl (Zofran) 4 mg IV Q8H PRN PRN PRN Reason: NAUSEA/VOMITING Senna/Docusate Sodium (Senokot-S, Susy-Colace) 2 tablet PO BID PRN PRN PRN Reason: Constipation Sodium Chloride () 10 - 40 ml IV UD PRN PRN Reason: SALINE FLUSH Capacity - Capacity Assessment Tool Can the patient make a choice & communicate that choice?: Yes STROKE Vital Signs/Narrative: Vital Signs Temp Pulse Resp BP Pulse Ox 06/30/19 09:53 73 152/50 H 06/30/19 09:52 73 152/50 H 06/30/19 09:32 98.4 F 73 18 152/50 H 97 06/30/19 07:38 92 Medical Necessity - Tobacco Use Smoking Status: Never smoker Assessment/Plan All Active Problems Diabetic foot infection (Acute) 1. Acute left lower leg cellulitis, diabetic foot wounds, complicated by hx PVD - prior multiple organisms. Continue vanc/cefepime. Podiatry to see this afternoon. Xray without osteomyelitis. WBC improving. CRP 171, ESR 107. 2. JOANNA on CKDIII - improved. continue IVF. 3. T2DM with morbid obesity - SSI, novolin n qd, novolin r tid. A1C 8.2. 4. Anemia with iron deficiency - tsh normal, dec iron and iron sat. start po iron 5. Lymphedema - daily CHUCK wraps. 6. HTN - stable DVT ppx: heparin DC planning: PTOT evals, likely needs to go back to SNF This patient was seen by Quintin Polanco PA-C under the supervision of Dr. Downey. <Jessy Rolle - Last Filed: 06/30/19 14:03> Vitals/I&O's: Vital Signs Temp Pulse Resp BP Pulse Ox 98.4 F 73 18 152/50 H 97 06/30/19 09:32 06/30/19 09:53 06/30/19 09:32 06/30/19 09:53 06/30/19 09:32 Oxygen Delivery Method Room Air Weight: 430 lb 12.532 oz Body Mass Index (BMI) 51.0 Finger Stick Blood Glucose 222 Intake and Output for Last 24 Hours 06/28/19 06/29/19 06/30/19 23:59 23:59 23:59 Intake Total 1310 / 1610 1130.00 / 1130.00 Output Total 750 / 750 Balance 1310 / 1210 380.00 / 380.00 Laboratory Results 06/29/19 12:28: WBC 14.6 H, RBC 3.72 L, Hgb 9.8 L, Hct 31.6 L, MCV 84.9, MCH 26.3 L, MCHC 31.0 L, RDW Std Deviation 46.0 H, RDW Coeff of Pool 15.0 H, Plt Count 307, MPV 10.1, Immature Gran % (Auto) 0.600, Neut % (Auto) 81.4 H, Lymph % (Auto) 8.7 L, [place] % (Auto) 7.9, Eos % (Auto) 1.3, Baso % (Auto) 0.1, Absolute Neuts (auto) 11.9 H, Absolute Lymphs (auto) 1.26, Nucleated RBC % 0, ESR 109 H 06/29/19 12:28: Sodium 133 L, Potassium 5.1, Chloride 104, Carbon Dioxide 23.0, Anion Gap 6, BUN 56 H, Creatinine 2.29 H, Estim Creat Clear Calc 41.07, Est GFR (MDRD) Af Amer 37 L, Est GFR (MDRD) Non-Af 31 L, BUN/Creatinine Ratio 24.5 H, Glucose 186 H, Calcium 9.1, C-React Prot Ext Range 171.00 H 06/29/19 12:28: Hemoglobin A1c 8.2 H 06/29/19 16:25: S.aureus Protein A PCR POSITIVE H, MRSA (PCR) Negative 06/29/19 16:25: S.aureus Protein A PCR POSITIVE H, MRSA (PCR) Negative 06/29/19 16:59: POC Glucose 181 H 06/29/19 23:08: POC Glucose 123 H 06/30/19 05:04: WBC 7.8, RBC 3.08 L, Hgb 8.1 L, Hct 26.4 L, MCV 85.7, MCH 26.3 L , MCHC 30.7 L, RDW Std Deviation 47.9 H, RDW Coeff of Pool 15.2 H, Plt Count 204, MPV 10.3, Immature Gran % (Auto) 0.600, Neut % (Auto) 73.0 H, Lymph % (Auto) 12.6 L, [place] % (Auto) 9.0, Eos % (Auto) 4.4, Baso % (Auto) 0.4, Absolute Neuts (auto) 5.7, Absolute Lymphs (auto) 0.98, Nucleated RBC % 0 06/30/19 05:04: Sodium 137, Potassium 5.0, Chloride 108 H, Carbon Dioxide 22.0, Anion Gap 7, BUN 57 H, Creatinine 2.16 H, Estim Creat Clear Calc 43.54, Est GFR (MDRD) Af Amer 40 L, Est GFR (MDRD) Non-Af 33 L, BUN/Creatinine Ratio 26.4 H, Glucose 169 H, Calcium 8.4 L 06/30/19 05:04: Iron 17 L, TIBC 159 L, Iron Saturation 10.7 L, TSH 2.74 06/30/19 08:13: POC Glucose 159 H 06/30/19 11:55: POC Glucose 148 H Current Medications Acetaminophen (Tylenol) 650 mg PO Q6H PRN PRN PRN Reason: Pain Score 1-10/Temp > 100.7 F Last Admin: 06/30/19 10:01 Dose: 650 mg Documented by: Amlodipine Besylate (Norvasc) 5 mg PO DAILY [facility] Last Admin: 06/30/19 09:59 Dose: 5 mg Documented by: Ascorbic Acid (Vitamin C) 500 mg PO DAILY@0800 [facility] Last Admin: 06/30/19 09:28 Dose: 500 mg Documented by: Glucagon () 1 mg IM .X1 PRN PRN Reason: Hypoglycemia Guaifenesin (Mucinex) 1,200 mg PO BID [facility] Last Admin: 06/30/19 12:06 Dose: 1,200 mg Documented by: Heparin Sodium (Porcine) (Heparin Na) 5,000 unit SC Q12 [facility] Last Admin: 06/30/19 09:53 Dose: 5,000 unit Documented by: Hydralazine HCl (Apresoline) 50 mg PO BID [facility] Last Admin: 06/30/19 09:53 Dose: 50 mg Documented by: Dextrose (Dextrose 10%-Water) 250 mls @ 999 mls/hr IV .Q16M PRN; Protocol PRN Reason: HYPOGLYCEMIA Vancomycin IV Pharmacy to Dose (1 ea/ Sodium Chloride) 500 mls @ 250 mls/hr IV PRN PRN; Protocol PRN Reason: Rx to Dose Sodium Chloride () 250 mls @ 15 mls/hr IV .[id number] PRN PRN Reason: Saline Flush Sodium Chloride () 250 mls @ 15 mls/hr IV .[id number] PRN PRN Reason: Additional IVPB Infusion Vancomycin HCl (Vancomycin) 1,000 mg in 200 mls @ 200 mls/hr IV Q12H [facility] Last Infusion: 06/30/19 03:18 Dose: Infused Documented by: Cefepime HCl 2 gm/ Sodium (Chloride) 100 mls @ 200 mls/hr IV Q8 [facility] Last Admin: 06/30/19 11:47 Dose: 200 mls/hr Documented by: Insulin Human Lispro (Humalog Kwikpen (Bkc)) 0 unit SC ACHS [facility]; Protocol Last Admin: 06/30/19 12:03 Dose: Not Given Documented by: Insulin Human Lispro (Humalog Kwikpen (Bkc)) 30 unit SC 0800,1200,1700 [facility] Last Admin: 06/30/19 12:01 Dose: 30 units Documented by: Insulin Human NPH (Humulin N (Bk)) 40 units SC 1700 [facility] Last Admin: 06/29/19 19:35 Dose: 40 units Documented by: Lisinopril (Zestril) 10 mg PO DAILY [facility] Last Admin: 06/30/19 09:52 Dose: 10 mg Documented by: Metoprolol Succinate (Toprol Xl (Beta Marshall)) 50 mg PO DAILY [facility] Last Admin: 06/30/19 09:52 Dose: 50 mg Documented by: Morphine Sulfate () 2 mg IV Q3H PRN PRN PRN Reason: Pain Score 6-10/10 Nutritional Formula (Lactose Free) (Glucerna Shake) 120 ml PO 4X/DAY [facility] Last Admin: 06/30/19 09:51 Dose: 120 ml Documented by: Ondansetron HCl (Zofran) 4 mg IV Q8H PRN PRN PRN Reason: NAUSEA/VOMITING Polysaccharide Iron Complex (Ferrex 150) [facility] Senna/Docusate Sodium (Senokot-S, Susy-Colace) 2 tablet PO BID PRN PRN PRN Reason: Constipation Sodium Chloride () 10 - 40 ml IV UD PRN PRN Reason: SALINE FLUSH STROKE Vital Signs/Narrative: Vital Signs Temp Pulse Resp BP Pulse Ox 06/30/19 09:53 73 152/50 H 06/30/19 09:52 73 152/50 H 06/30/19 09:32 98.4 F 73 18 152/50 H 97 Assessment/Plan Patient seen by Quintin Polanco PA-C under my supervision Patient was admitted with a complaint of leg wounds; he was admitted from the wound clinic via the ED by his student services representative. He is being managed for LLE cellulitis and diabetic foot wounds. Patient seen and examined today. He had no complaints. He does have a cough, but says it has been going on for ~ 2 months, and he gets similar cough every year at spring, due to allergies. He has been afebrile since admission. Review of systems is otherwise negative. o/e: Vital Signs Temp Pulse Resp BP Pulse Ox 98.4 F 73 18 152/50 H 97 06/30/19 09:32 06/30/19 09:53 06/30/19 09:32 06/30/19 09:53 06/30/19 09:32 General: Alert, Oriented x3, Cooperative HEENT: Atraumatic, PERRLA, EOMI, Normocephalic Neck: Supple, No JVD, Negative Carotid Bruits Lungs: Clear to auscultation, Normal air movement Cardiovascular: Regular rate, No murmurs Abdomen: Bowel Sounds Present, Soft, Non Tender, Obese Extremities: both LEs wrapped in bandage; has edema, mild redness and differential warmth of both LEs Skin: No rashes, No breakdown Musculoskeletal: No Tenderness to Palpation of Joints or Extremities Neurological: Cranial nerves II-XII grossly intact Psych/Mental Status: Normal Affect, Appropriate, Alert and oriented to time, place, person, mood and affect Plan is to continue IV vancomycin and cefepime. Podiatry on board. x-rays didn't show osteomyelitis. Cr is 2.29, with baseline of ~ 1.8. Hydrate gently with IV Normal saline. May need an MRI; will defer to podiatry. Continue insulin and IS S. Accuchecks ACHS Rest as per Quintin Polanco PA-C's note, which I have reviewed and endorsed. Inpatient E&M: 10263 Subs Hosp L3
--- NOTE | 2019-06-30 11:35 | CASEMGMT ---
RN JESSICA Face to Face with patient for initial transition planning/care coordination assessment. RN CM introduced self and role at [facility]. Patient lying in bed, alert and oriented. Patient willing to participate in assessment and is able to answer all questions appropriately. Care providers, pharmacy, and demographics verified. Patient wishes to discharge home, with resumption of HHC and aide services. Patient states he has no further needs or concerns at this time. CM to follow for discharge planning needs that may arise. PCP: Ac Felix Specialists: Betty residential solar sales consultant Sridhar Pharmacy: [facility] Insurance: Isidro Prescription Benefit: yes Living Will/HPOA: none LNOK: niece Living Arrangements: Patient lives alone in mobile home with ramp to enter the home. Patient has aides who assist with bathing and shopping. Transportation: [employer] DME/HHC: [place] has shower chair, BSC, hospital bed, lift chair, grab bars, hip kit, rollator, wheelchair, and power wheelchair. Patient has HHC through [facility] . Patient has [facility], Nuris Gomez [phone]. [facility] care aides 5-8 hours per week. Patient follows at the wound center. Patient states he has done IV ATBs in the past. Disposition Plan: Patient to discharge home with resumption of HHC and aides services and follow-up plans in place. Emperatriz GONZALEZ, RN, CM
[2019-06-30 12:00] LABS: Bedside Glucose 148 mg/dL (70-110)
[2019-06-30] MEDS: guaiFENesin 1,200 MG Tablet 1200 MG PO ×2 (12:06→22:16)
--- NOTE | 2019-06-30 12:24 | PCM.PROGNOTE ---
Patient Problems: Active and Suspected Problems Diabetic foot infection (Acute) Subjective: This 64-year-old male was multiple comorbidities seen bedside for follow-up of left foot infection. He denies fever, chill, nausea, vomiting. He relates the swelling is decreasing. He denies left foot pain. He asked if he should be elevating. - Physical Exam Vitals/I&O's: Vital Signs Temp Pulse Resp BP Pulse Ox 98.4 F 73 18 152/50 H 97 06/30/19 09:32 06/30/19 09:53 06/30/19 09:32 06/30/19 09:53 06/30/19 09:32 Oxygen Delivery Method Room Air Weight: 195.4 kg Body Mass Index (BMI) 51.0 Finger Stick Blood Glucose 222 Intake and Output for Last 24 Hours 06/28/19 06/29/19 06/30/19 23:59 23:59 23:59 Intake Total 1310 / 1610 1130.00 / 1130.00 Output Total 750 / 750 Balance 1310 / 1210 380.00 / 380.00 General: Alert, Oriented x3, Cooperative HEENT: Atraumatic Extremities: No cyanosis, Capillary Refill Less than 3 Seconds - Amputation stump site left and all digits right foot, No Calf Tenderness - Negative [place] and Simmons signs bilateral, Diminished Peripheral Pulses, Edema - Decreased compared to yesterday with increased skin wrinkles Skin: Ulcer/ Wound - Left foot ulcer has stable eschar to the plantar aspect with additional granulation tissue and peripheral fibrous tissue bulla and some macerated tissue. The odor continues and is more distinct today. The erythema has decreased compared to yesterday and there is no proximal streaking., - - Right foot dressings are clean, dry, and intact Musculoskeletal: No Tenderness to Palpation of Joints or Extremities, Muscle Wasting, - - No skin tenting. Lower extremity left compartments remain soft to palpate. Left transmetatarsal amputation noted. Right active range of motion digits noted Neurological: - - Lack of epicritic sensation is consistent with his neuropathy status Psych/Mental Status: Normal Affect, Appropriate Laboratory Results 06/29/19 12:28: WBC 14.6 H, RBC 3.72 L, Hgb 9.8 L, Hct 31.6 L, MCV 84.9, MCH 26.3 L, MCHC 31.0 L, RDW Std Deviation 46.0 H, RDW Coeff of Pool 15.0 H, Plt Count 307, MPV 10.1, Immature Gran % (Auto) 0.600, Neut % (Auto) 81.4 H, Lymph % (Auto) 8.7 L, [place] % (Auto) 7.9, Eos % (Auto) 1.3, Baso % (Auto) 0.1, Absolute Neuts (auto) 11.9 H, Absolute Lymphs (auto) 1.26, Nucleated RBC % 0, ESR 109 H 06/29/19 12:28: Sodium 133 L, Potassium 5.1, Chloride 104, Carbon Dioxide 23.0, Anion Gap 6, BUN 56 H, Creatinine 2.29 H, Estim Creat Clear Calc 41.07, Est GFR (MDRD) Af Amer 37 L, Est GFR (MDRD) Non-Af 31 L, BUN/Creatinine Ratio 24.5 H, Glucose 186 H, Calcium 9.1, C-React Prot Ext Range 171.00 H 06/29/19 12:28: Hemoglobin A1c 8.2 H 06/29/19 16:25: S.aureus Protein A PCR POSITIVE H, MRSA (PCR) Negative 06/29/19 16:25: S.aureus Protein A PCR POSITIVE H, MRSA (PCR) Negative 06/29/19 16:59: POC Glucose 181 H 06/29/19 23:08: POC Glucose 123 H 06/30/19 05:04: WBC 7.8, RBC 3.08 L, Hgb 8.1 L, Hct 26.4 L, MCV 85.7, MCH 26.3 L, MCHC 30.7 L, RDW Std Deviation 47.9 H, RDW Coeff of Pool 15.2 H, Plt Count 204, MPV 10.3, Immature Gran % (Auto) 0.600, Neut % (Auto) 73.0 H, Lymph % (Auto) 12.6 L, [place] % (Auto) 9.0, Eos % (Auto) 4.4, Baso % (Auto) 0.4, Absolute Neuts (auto) 5.7, Absolute Lymphs (auto) 0.98, Nucleated RBC % 0 06/30/19 05:04: Sodium 137, Potassium 5.0, Chloride 108 H, Carbon Dioxide 22.0, Anion Gap 7, BUN 57 H, Creatinine 2.16 H, Estim Creat Clear Calc 43.54, Est GFR (MDRD) Af Amer 40 L, Est GFR (MDRD) Non-Af 33 L, BUN/Creatinine Ratio 26.4 H, Glucose 169 H, Calcium 8.4 L 06/30/19 05:04: Iron 17 L, TIBC 159 L, Iron Saturation 10.7 L, TSH 2.74 06/30/19 08:13: POC Glucose 159 H 06/30/19 11:55: POC Glucose 148 H Current Medications Acetaminophen (Tylenol) 650 mg PO Q6H PRN PRN PRN Reason: Pain Score 1-10/Temp > 100.7 F Last Admin: 06/30/19 10:01 Dose: 650 mg Documented by: Amlodipine Besylate (Norvasc) 5 mg PO DAILY [facility] Last Admin: 06/30/19 09:59 Dose: 5 mg Documented by: Ascorbic Acid (Vitamin C) 500 mg PO DAILY@0800 [facility] Last Admin: 06/30/19 09:28 Dose: 500 mg Documented by: Glucagon () 1 mg IM .X1 PRN PRN Reason: Hypoglycemia Guaifenesin (Mucinex) 1,200 mg PO BID [facility] Last Admin: 06/30/19 12:06 Dose: 1,200 mg Documented by: Heparin Sodium (Porcine) (Heparin Na) 5,000 unit SC Q12 [facility] Last Admin: 06/30/19 09:53 Dose: 5,000 unit Documented by: Hydralazine HCl (Apresoline) 50 mg PO BID [facility] Last Admin: 06/30/19 09:53 Dose: 50 mg Documented by: Dextrose (Dextrose 10%-Water) 250 mls @ 999 mls/hr IV .Q16M PRN; Protocol PRN Reason: HYPOGLYCEMIA Vancomycin IV Pharmacy to Dose (1 ea/ Sodium Chloride) 500 mls @ 250 mls/hr IV PRN PRN; Protocol PRN Reason: Rx to Dose Sodium Chloride () 250 mls @ 15 mls/hr IV .[id number] PRN PRN Reason: Saline Flush Sodium Chloride () 250 mls @ 15 mls/hr IV .[id number] PRN PRN Reason: Additional IVPB Infusion Vancomycin HCl (Vancomycin) 1,000 mg in 200 mls @ 200 mls/hr IV Q12H [facility] Last Infusion: 06/30/19 03:18 Dose: Infused Documented by: Cefepime HCl 2 gm/ Sodium (Chloride) 100 mls @ 200 mls/hr IV Q8 [facility] Last Admin: 06/30/19 11:47 Dose: 200 mls/hr Documented by: Insulin Human Lispro (Humalog Kwikpen (Bkc)) 0 unit SC ACHS [facility]; Protocol Last Admin: 06/30/19 12:03 Dose: Not Given Documented by: Insulin Human Lispro (Humalog Kwikpen (Bkc)) 30 unit SC 0800,1200,1700 [facility] Last Admin: 06/30/19 12:01 Dose: 30 units Documented by: Insulin Human NPH (Humulin N ([facility])) 40 units SC 1700 [facility] Last Admin: 06/29/19 19:35 Dose: 40 units Documented by: Lisinopril (Zestril) 10 mg PO DAILY [facility] Last Admin: 06/30/19 09:52 Dose: 10 mg Documented by: Metoprolol Succinate (Toprol Xl (Beta Marshall)) 50 mg PO DAILY [facility] Last Admin: 06/30/19 09:52 Dose: 50 mg Documented by: Morphine Sulfate () 2 mg IV Q3H PRN PRN PRN Reason: Pain Score 6-10/10 Nutritional Formula (Lactose Free) (Glucerna Shake) 120 ml PO 4X/DAY [facility] Last Admin: 06/30/19 09:51 Dose: 120 ml Documented by: Ondansetron HCl (Zofran) 4 mg IV Q8H PRN PRN PRN Reason: NAUSEA/VOMITING Polysaccharide Iron Complex (Ferrex 150) [facility] Senna/Docusate Sodium (Senokot-S, Susy-Colace) 2 tablet PO BID PRN PRN PRN Reason: Constipation Sodium Chloride () 10 - 40 ml IV UD PRN PRN Reason: SALINE FLUSH Medical Necessity - Tobacco Use Smoking Status: Never smoker Assessment/Plan All Active Problems Diabetic foot infection (Acute) Left foot infection with chronic ulceration and concern of deep abscess Right foot ulcer stable Osteomyelitis 5th metatarsal is suspected Diabetes with neuropathy Peripheral vascular disease Chronic kidney disease with acute kidney injury Obesity Debilitation Other comorbidities I discussed his case and treatment plan. Selective debridement was performed to left foot ulcer site with pickups and medical scissor. His erythema, edema, and adjacent inflammation yesterday. However his distinct odor is concerning. His x-rays were reviewed yesterday and did not demonstrate distinct evidence of osteomyelitis, foreign body, soft tissue emphysema, or acute fracture dislocation. His white blood cell count was over 14 yesterday and is now 7.8 today. He also is afebrile and his vital signs are stable this afternoon. I recommend an MRI to rule out a deep abscess and to determine if continued medical IV treatment versus surgical intervention is appropriate. He has continued skin slough and deterioration and persistent odor. His blood cultures are negative so far and these are pending. The wound cultures are demonstrating gram-positive growth is gram-negative vidal growth. The final result is also pending. He is on cefepime and vancomycin. I do recommend infectious disease consultation due to his high risk status and recurrent infection history type drug resistances. His left lower extremity dressing was changed. He was advised to continue strict elevation of the involved limb and continued offloading. I will follow him close while in house. Gemini Hernández DPM, [facility] [phone]
--- NOTE | 2019-06-30 12:25 | MRI_ITS ---
STUDY: MRI LEFT MIDFOOT REASON FOR EXAM: Male, 64 years old. left foot infection, ulcer left foot, hx prior amputations TECHNIQUE: Standardized fat and water weighted pulse sequences were obtained in all 3 orthogonal planes. COMPARISON: X-ray June 29, 2019 MRI April 07, 2019 FINDINGS: There is moderate degenerative arthrosis of the talonavicular articulation. Normal calcaneocuboid articulation. Normal navicular-cuneiform articulations. Normal intercuneiform articulations. Normal first tarsometatarsal articulation. Normal Lisfranc ligament. Normal second and third tarsometatarsal articulations. Normal cuboid fourth and cuboid fifth tarsometatarsal articulation. There is transmetatarsal amputation of the first through fifth metatarsi. There is marrow edema of the base of the fifth metatarsal, series 8 images 24/28 and 25/28. There is distal soft tissue swelling and skin thickening. There is swelling of the dorsum of the foot.. There is focal defects on the plantar lateral aspect. There are regions of signal dropout on the lateral aspect of the midfoot consistent with abnormal air and infection. There is muscular atrophy. MRI/Lower Ext/No Jt/w/o IMPRESSION: Osteomyelitis of the fifth metatarsal. Soft tissue defect with abnormal air in the soft tissues. Electronically Signed: Jagdeep Morris MD at 18:49 EDT , Service support ,
[2019-06-30 16:11] LABS: Bedside Glucose 123 mg/dL (70-110)
[2019-06-30] MEDS: 0.9% Saline Lock 10 ML Syringe IV ×2 (16:12→22:16)
--- NOTE | 2019-06-30 16:18 | CASEMGMT ---
Social Work Phone call to pt Passport JESSICA Gomez, and left VM that pt was admitted. SW also spoke with [facility] who provided 5-8 hours of home health aids a week and updated on pt admission. JODY Daniels
[2019-06-30] MEDS: Insulin NPH Human 100 UNITS/ML PEN 40 UNITS SC (18:02)
[2019-06-30 22:31] LABS: Bedside Glucose 75 mg/dL (70-110)
[2019-07-01] VITALS (13 sets, daily range): BP systolic 135–163; BP diastolic 42–81; PULSE 61–84; RESP 16–18; TEMP 36.7–37.3; O2SAT 92–97; BMI 50.1
--- NOTE | 2019-07-01 | BON_PTH ---
PATIENT: [place] IV[place] LOC: [facility] U#:[id number] AGE/SX: 64/M ROOM: [facility] RE06/29/[address]: Dr. Jessy Rolle MD : [id number] BED: 1 DIS: 07/05/2019 SPEC #: [id number] RECD: 07/04/19 10:12 STATUS: DON REQ #: [id number] RENUKA: 07/01/19 00:[address]: Gemini Hernández DEPT: SURGICAL PATHOLOGY RECD BY: Les Albarran ENTERED: 07/04/19 10:13 SP TYPE: Bone OTHR DR: MD Dr. Gemini Pierre, DPM MD Dr. Avila Ramirez MD Dr. Roger O Snyder, MD Tissues: Bone of foot, NOS Procedures: Decalcification bone/plaque Surgery Specimen Level IV Comments: @ Ordering doctor for DEC edited from to @ by GRANT at 07/04/19 1104 @ Ordering doctor for SUIII edited from to @ by GRANT at 07/04/19 1104 @ Submitting doctor edited from to @ by RGOOD at 07/04/19 1104 HEADER OPERATION: Incision and drainage, debridement of soft tissue and bone biopsy PRE-OP DIAGNOSIS: Diabetic foot infection, osteomyelitis TISSUE SUBMITTED: Left fifth metatarsal MICROSCOPIC DIAGNOSIS Left fifth metatarsal, biopsy: Bone with reactive and reparative change. No evidence of osteomyelitis. AM:enrique 07/07/19 MICROSCOPIC DESCRIPTION Slides are reviewed. GROSS DESCRIPTION Received in fixative is one container labeled with the patient's name and designated left fifth metatarsal. The specimen consists of a core biopsy of alva bone measuring 0.4 cm in length and 0.3 cm in diameter. The specimen is totally submitted in one cassette after decalcification. / SJ:enrique 07/04/19 TC:5 CPT: 93592, 00945
[2019-07-01] MEDS: Acetaminophen 325 MG Tablet 650 MG PO ×2 (01:04→22:17)
[2019-07-01] MEDS: Vancomycin IV 1,000 MG/200 ML BAG 200 MG IV (02:03)
[2019-07-01 02:25] LABS: Vancomycin, Trough Level 20.7 ug/mL (5.0-15.0)
--- NOTE | 2019-07-01 02:40 | PHA.PHARE_ITS ---
Consult Pharmacy has been consulted to manage selected antiobiotic: Vancomycin Type of Consult: Follow-up Suspected Infection: Skin/Soft tissue Prior Doses of Antibiotics Received/Current Regimen: Medications Vancomycin HCl (Vancomycin) 1,000 mg in 200 mls @ 200 mls/hr IV Q12H [facility] Stop: 07/01/19 03:02 Last Admin: 07/01/19 02:03 Dose: 200 mls/hr Vancomycin HCl 1,500 mg/ (Sodium Chloride) 530 mls @ 250 mls/hr IV Q24H [facility] Labs: Sodium 137 mmol/L (136-145) 06/30/19 05:04 Potassium 5.0 mmol/L (3.5-5.1) 06/30/19 05:04 Chloride 108 mmol/L (98-107) H 06/30/19 05:04 Carbon Dioxide 22.0 mmol/L (21.0-32.0) 06/30/19 05:04 Anion Gap 7 (5-15) 06/30/19 05:04 BUN 57 mg/dL (7-18) H 06/30/19 05:04 Creatinine 2.16 mg/dL (0.70-1.30) H 06/30/19 05:04 Est GFR (MDRD) Af Amer 40 mL/min (>60) L 06/30/19 05:04 Est GFR (MDRD) Non-Af 33 mL/min (>60) L 06/30/19 05:04 BUN/Creatinine Ratio 26.4 RATIO (10-20) H 06/30/19 05:04 Glucose 169 mg/dL (74-106) H 06/30/19 05:04 Vancomycin Trough 20.7 ug/mL (5.0-15.0) H 07/01/19 01:45 Weight used for dosin.4 kg Estimated Creatinine Clearance: 43.5 Goal Trough: 10-15 mcg/mL Pharmacy Plan for Drug Dosing: Trough level of 20.7 was above the target range of 10-15. Adjusted dose to 1500mg q24h. Will re-draw trough level 07/03/19. Pharmacy Service will continue to monitor and adjust dosing as required. Follow-Up Labs: Trough Vancomycin Labs to be done on [date and time ordered]: 07/03/19 @0130
--- NOTE | 2019-07-01 05:00 | EKG12_ITS ---
Test Reason : AM EKG Blood Pressure : / mmHG Vent. Rate : 064 BPM Atrial Rate : 065 BPM P-R Int : 000 ms QRS Dur : 096 ms QT Int : 408 ms P-R-T Axes : 000 025 015 degrees QTc Int : 420 ms Sinus vs. ectopic atrial rhythm Low voltage QRS Septal SC, age undetermined Confirmed by ONDINA HERMOSILLO, CRISSY ([id number]), photo editor PADDY ZARATE ([id number]) on 07/06/2019 9:59:42 AM Referred By: ABBY Confirmed By:CRISSY NJ MD
[2019-07-01 05:39] LABS: Absolute Lymphocyte Count 1.04 X10^3/uL (0.83-4.51); Absolute Neutrophil Count 6.8 X10^3/uL (2.0-7.7); Basophil# 0.02 X10^3/uL; Basophil% 0.2 % (0-1); Eosinophil# 0.35 X10^3/uL; Eosinophils% 3.8 % (0-5); Hematocrit 26.6 % (40-54); Hemoglobin 8.2 g/dL (13.0-16.5); International Normalized Ratio 1.2; Lymphocyte # 1.04 X10^3/ul (4.0); Lymphocyte % 11.4 % (19-41); Mean Corp Hgb Conc 30.8 g/dL (32-36); Mean Corpuscular Hgb 26.5 pg (27.0-32.0); Mean Corpuscular Volume 85.8 fL (80-94); Mean Platelet Vol. 10.2 fl (6.2-12.0); Monocyte# 0.86 X10^3/uL; Monocyte% 9.4 % (0-10); NRBC Flagged by Analyzer 0 % (0-5); Neutrophil # 6.83 X10^3/uL (2.7-7.7); Neutrophil % 74.7 % (47-70); Platelet Count 216 K/mm3 (150-450); Prothrombin Time (Protime)PT. 14.8 SECONDS (11.7-14.9); RBC Distribution Width SD 46.9 fl (35.1-43.9); White Blood Count 9.2 K/mm3 (4.4-11.0)
[2019-07-01 05:40] LABS: Partial Thromboplast Time 28.3 Seconds (24.1-36.2)
[2019-07-01 05:44] LABS: Anion Gap 7 (5-15); BUN 46 mg/dL (7-18); BUN/Creat Ratio 25.8 RATIO (10-20); Calcium,Total 8.4 mg/dL (8.5-10.1); Chloride 109 mmol/L (98-107); Creatinine, Serum 1.78 mg/dL (0.70-1.30); EST Glomerular Filtration Rate 41 mL/min (>60); Est Glom Filt Rate - Afr Amer 50 mL/min (>60); Estimated Creatinine Clearance 52.84 ml/min; Glucose 110 mg/dL (74-106); Potassium 4.6 mmol/L (3.5-5.1); Sodium Level 136 mmol/L (136-145)
[2019-07-01 06:40] LABS: Bedside Glucose 119 mg/dL (70-110)
[2019-07-01] MEDS: Iron Polysaccharide Complex 150 MG CAPSULE PO (08:06)
[2019-07-01] MEDS: amLODIPine 5 MG Tablet PO (08:07)
[2019-07-01] MEDS: Ascorbic Acid 500 MG Tablet PO (08:07)
[2019-07-01] MEDS: hydrALAZINE 50 MG Tablet PO ×2 (08:07→22:04)
[2019-07-01] MEDS: Lisinopril 10 MG Tablet PO (08:14)
[2019-07-01] MEDS: Metoprolol(XL)Succ 50 MG Tablet PO (08:14)
--- NOTE | 2019-07-01 10:00 | PCM.HP.ID ---
Problem List (1) Diabetic foot infection Status: Acute Reason for Consult: osteo Consulted by: Dr. Rolle History of Present Illness: The patient is a 64 year old M with DM, PVD, recurrent foot osteo, last admitted 04/2019 for L foot osteo. Now with one week of green drainage from L foot, no clear inciting event, has been following with podiatry. Over past few days prior to admit, much worse pain, redness, swelling, and purulence. No fever or chills. No abx prior to admit. Admitted 06/28, started on vanc/cefepime, MRI done, seen by Dr. Hernández. Feeling a little better but has decided he will need amputation. Full ROS performed and neg except as noted above. - Medical History Past Medical History (Chronic Problems): Chronic Problems Lymphedema (Chronic) Venous insufficiency (Chronic) Peripheral vascular disease (Chronic) Tinea unguium (Chronic) Chronic ulcer of left foot with fat layer exposed (Chronic) Burn of leg (Chronic) Hammer toe of right foot (Chronic) Walking difficulty due to ankle and foot (Chronic) Obesity (Chronic) Type 2 diabetes mellitus with diabetic polyneuropathy (Chronic) Ulcer of left lower extremity with fat layer exposed (Chronic) Chronic ulcer of left foot with fat layer exposed (Chronic) Ulcer of right foot with fat layer exposed (Chronic) Ulcer of right lower extremity with fat layer exposed (Chronic) Ulcer of right lower extremity with fat layer exposed (Chronic) Chronic ulcer of left foot with fat layer exposed (Chronic) Dehiscence of amputation stump (Chronic) Type 2 diabetes mellitus with diabetic polyneuropathy (Chronic) Non-pressure chronic ulcer of right heel and midfoot with fat layer exposed (Chronic) Obesity (Chronic) Diabetes mellitus with polyneuropathy (Chronic) Non-pressure chronic ulcer of right heel and midfoot with necrosis of muscle (Chronic) Diabetic foot ulcer (Chronic) Osteomyelitis of foot (Chronic) Ulcer of right heel and midfoot with fat layer exposed (Chronic) Chronic ulcer of left foot with necrosis of muscle (Chronic) Allergies/Adverse Reactions: Allergies ciprofloxacin [From Cipro] Allergy (Verified 06/29/19 11:34) Rash he has tolerated oral cipro in the past levofloxacin [From Levaquin] Allergy (Verified 06/29/19 11:34) Hives Penicillins Allergy (Verified 06/29/19 11:34) Hives silver Allergy (Verified 06/29/19 11:34) Rash Skin márquez and itches, rash Home Medications: Ambulatory Orders Medication Instructions Recorded Lisinopril [Zestril] 10 mg PO DAILY 06/04/17 Metoprolol(XL)Succ [Toprol Xl 50 mg PO DAILY 06/04/17 (Beta Marshall)] Ascorbic Acid [Vitamin C] 500 mg PO DAILY@0800 05/02/19 Amlodipine [Norvasc] 5 mg PO DAILY #0 05/05/19 Furosemide 40 mg PO DAILY #0 05/05/19 Insulin Regular, Human [Novolin R] 30 unit SQ TID #0 05/05/19 Guaifenesin [Mucinex] 600 mg PO BID 06/29/19 Insulin NPH Human Isophane 40 unit SQ QHS 06/29/19 [Novolin N Flexpen] hydrALAZINE [Apresoline] 50 mg PO BID 06/29/19 - Social History SMOKING STATUS:: Never smoker Vital Signs Temp Pulse Resp BP Pulse Ox 99.1 F 78 18 142/42 H 93 07/01/19 02:10 07/01/19 08:14 07/01/19 02:10 07/01/19 02:10 07/01/19 07:29 Oxygen Delivery Method Room Air Weight: 195.4 kg Body Mass Index (BMI) 51.0 Finger Stick Blood Glucose 222 Laboratory Tests Past 24 Hrs 07/01/19 07/01/19 07/01/19 01:45 05:18 05:18 WBC 9.2 RBC 3.10 L Hgb 8.2 L Hct 26.6 L MCV 85.8 MCH 26.5 L MCHC 30.8 L RDW Std Deviation 46.9 H RDW Coeff of Pool 15.0 H Plt Count 216 MPV 10.2 Immature Gran % (Auto) 0.500 Neut % (Auto) 74.7 H Lymph % (Auto) 11.4 L [place] % (Auto) 9.4 Eos % (Auto) 3.8 Baso % (Auto) 0.2 Absolute Neuts (auto) 6.8 Absolute Lymphs (auto) 1.04 Nucleated RBC % 0 PT INR APTT Sodium 136 Potassium 4.6 Chloride 109 H Carbon Dioxide 20.0 L Anion Gap 7 BUN 46 H Creatinine 1.78 H Estim Creat Clear Calc 52.84 Est GFR (MDRD) Af Amer 50 L Est GFR (MDRD) Non-Af 41 L BUN/Creatinine Ratio 25.8 H Glucose 110 H Calcium 8.4 L Vancomycin Trough 20.7 H 07/01/19 05:18 WBC RBC Hgb Hct MCV MCH MCHC RDW Std Deviation RDW Coeff of Pool Plt Count MPV Immature Gran % (Auto) Neut % (Auto) Lymph % (Auto) [place] % (Auto) Eos % (Auto) Baso % (Auto) Absolute Neuts (auto) Absolute Lymphs (auto) Nucleated RBC % PT 14.8 INR 1.2 APTT 28.3 Sodium Potassium Chloride Carbon Dioxide Anion Gap BUN Creatinine Estim Creat Clear Calc Est GFR (MDRD) Af Amer Est GFR (MDRD) Non-Af BUN/Creatinine Ratio Glucose Calcium Vancomycin Trough - Other Studies Radiology: [] reviewed Other Studies: [] Route of nutrition/ use of supplements: [] Nutritional Intake: [] IV Site: [] Hernandez Catheter: [] - Physical Exam General: Alert, Oriented x3, Cooperative, No apparent distress HEENT: Atraumatic, PERRLA, EOMI Neck: Supple, No Nodes Lungs: Clear to auscultation, Normal air movement Cardiovascular: Regular rate, Regular Rhythm, No murmurs Abdomen: Soft, Non Tender, Non-Distended Extremities: Edema Skin: Ulcer/ Wound - bilat feet wrapped IV Site: Peripheral, without redness Musculoskeletal: No Tenderness to Palpation of Joints or Extremities Neurological: Cranial nerves II-XII grossly intact - Assessment/Plan Antibiotics: [] Assessment/Plan: [] Active and Suspected Problems Diabetic foot infection (Acute) L foot osteo -OR today for I&D. He is interested in amputation and I think this is a good decision given the frequency and severity of his foot infections. Cont vanc/cefepime, will add flagyl. Has tolerated unasyn/zosyn in the past without issue. Will follow, thank you, d/w primary team.
[2019-07-01 11:41] LABS: Bedside Glucose 158 mg/dL (70-110)
--- NOTE | 2019-07-01 12:25 | NURSING ---
pt transported off unit via bed at this time. chart and 1400 dose of antibiotic with patient
--- NOTE | 2019-07-01 13:08 | PN_ITS ---
<Quintin Polanco - Last Filed: 07/01/19 13:08> Patient Problems: Active and Suspected Problems Diabetic foot infection (Acute) Subjective: Patients states he did some soul searching last night and now is interested in an amputation. He has no fevers/chills. He has no cough/SOB. No nausea/vomiting. He is agreeable to I&D today. Vitals/I&O's: Vital Signs Temp Pulse Resp BP Pulse Ox 99.0 F 63 18 135/59 H 94 07/01/19 11:26 07/01/19 11:26 07/01/19 11:26 07/01/19 11:26 07/01/19 11:26 Oxygen Delivery Method Room Air Weight: 422 lb 12.8 oz Body Mass Index (BMI) 50.1 Finger Stick Blood Glucose 222 Intake and Output for Last 24 Hours 06/29/19 06/30/19 07/01/19 23:59 23:59 23:59 Intake Total 1310 / 1610 3780.00 / 4020.00 1368.25 / 1368.25 Output Total 2125 / 2725 2900 / 2900 Balance 1310 / 1210 1655.00 / 1295.00 -1531.75 / -1531.75 General: Alert, Oriented x3, Cooperative HEENT: Atraumatic, PERRLA, EOMI, Normocephalic Neck: Supple, No JVD, Negative Carotid Bruits Lungs: Clear to auscultation, Normal air movement Cardiovascular: Regular rate, No murmurs Abdomen: Bowel Sounds Present, Soft, Non Tender, Obese Extremities: No edema, Capillary Refill Less than 3 Seconds Skin: No rashes, No breakdown Musculoskeletal: No Tenderness to Palpation of Joints or Extremities Neurological: Cranial nerves II-XII grossly intact Psych/Mental Status: Normal Affect, Appropriate, Alert and oriented to time, place, person, mood and affect Laboratory Results 06/30/19 15:55: POC Glucose 123 H 06/30/19 22:15: POC Glucose 75 07/01/19 01:45: Vancomycin Trough 20.7 H 07/01/19 05:18: WBC 9.2, RBC 3.10 L, Hgb 8.2 L, Hct 26.6 L, MCV 85.8, MCH 26.5 L , MCHC 30.8 L, RDW Std Deviation 46.9 H, RDW Coeff of Pool 15.0 H, Plt Count 216, MPV 10.2, Immature Gran % (Auto) 0.500, Neut % (Auto) 74.7 H, Lymph % (Auto) 11.4 L, [place] % (Auto) 9.4, Eos % (Auto) 3.8, Baso % (Auto) 0.2, Absolute Neuts (auto) 6.8, Absolute Lymphs (auto) 1.04, Nucleated RBC % 0 07/01/19 05:18: Sodium 136, Potassium 4.6, Chloride 109 H, Carbon Dioxide 20.0 L , Anion Gap 7, BUN 46 H, Creatinine 1.78 H, Estim Creat Clear Calc 52.84, Est GFR (MDRD) Af Amer 50 L, Est GFR (MDRD) Non-Af 41 L, BUN/Creatinine Ratio 25.8 H , Glucose 110 H, Calcium 8.4 L 07/01/19 05:18: PT 14.8, INR 1.2, APTT 28.3 07/01/19 06:29: POC Glucose 119 H 07/01/19 11:23: POC Glucose 158 H Current Medications Acetaminophen (Tylenol) 650 mg PO Q6H PRN PRN PRN Reason: Pain Score 1-10/Temp > 100.7 F Last Admin: 07/01/19 01:04 Dose: 650 mg Documented by: Amlodipine Besylate (Norvasc) 5 mg PO DAILY [facility] Last Admin: 07/01/19 08:07 Dose: 5 mg Documented by: Ascorbic Acid (Vitamin C) 500 mg PO DAILY@0800 [facility] Last Admin: 07/01/19 08:07 Dose: 500 mg Documented by: Glucagon () 1 mg IM .X1 PRN PRN Reason: Hypoglycemia Guaifenesin (Mucinex) 1,200 mg PO BID [facility] Last Admin: 07/01/19 08:28 Dose: Not Given Documented by: Hydralazine HCl (Apresoline) 50 mg PO BID [facility] Last Admin: 07/01/19 08:07 Dose: 50 mg Documented by: Dextrose (Dextrose 10%-Water) 250 mls @ 999 mls/hr IV .Q16M PRN; Protocol PRN Reason: HYPOGLYCEMIA Vancomycin IV Pharmacy to Dose (1 ea/ Sodium Chloride) 500 mls @ 250 mls/hr IV PRN PRN; Protocol PRN Reason: Rx to Dose Sodium Chloride () 250 mls @ 15 mls/hr IV .[id number] PRN PRN Reason: Saline Flush Last Infusion: 07/01/19 07:00 Dose: 15 mls/hr Documented by: Sodium Chloride () 250 mls @ 15 mls/hr IV .[id number] PRN PRN Reason: Additional IVPB Infusion Cefepime HCl 2 gm/ Sodium (Chloride) 100 mls @ 200 mls/hr IV Q8 [facility] Last Infusion: 07/01/19 07:00 Dose: Infused Documented by: Vancomycin HCl 1,500 mg/ (Sodium Chloride) 530 mls @ 250 mls/hr IV Q24H [facility] Insulin Human Lispro (Humalog Kwikpen (Bkc)) 0 unit SC ACHS [facility]; Protocol Last Admin: 07/01/19 11:25 Dose: Not Given Documented by: Insulin Human Lispro (Humalog Kwikpen (Bkc)) 30 unit SC 0800,1200,1700 [facility] Last Admin: 07/01/19 11:25 Dose: Not Given Documented by: Insulin Human NPH (Humulin N (Bk)) 40 units SC 1700 [facility] Last Admin: 06/30/19 18:02 Dose: 40 units Documented by: Lisinopril (Zestril) 10 mg PO DAILY [facility] Last Admin: 07/01/19 08:14 Dose: 10 mg Documented by: Metoprolol Succinate (Toprol Xl (Beta Marshall)) 50 mg PO DAILY [facility] Last Admin: 07/01/19 08:14 Dose: 50 mg Documented by: Metronidazole (Flagyl) 500 mg PO TID [facility] Morphine Sulfate () 2 mg IV Q3H PRN PRN PRN Reason: Pain Score 6-10/10 Nutritional Formula ([facility] - [place] Fl[facility] Last Admin: 07/01/19 08:13 Dose: 1 packet Documented by: Ondansetron HCl (Zofran) 4 mg IV Q8H PRN PRN PRN Reason: NAUSEA/VOMITING Polysaccharide Iron Complex (Ferrex 150) [facility] Last Admin: 07/01/19 08:06 Dose: 150 mg Documented by: Senna/Docusate Sodium (Senokot-S, Susy-Colace) 2 tablet PO BID PRN PRN PRN Reason: Constipation Sodium Chloride () 10 - 40 ml IV UD PRN PRN Reason: SALINE FLUSH Last Admin: 06/30/19 22:16 Dose: 10 ml Documented by: STROKE Vital Signs/Narrative: Vital Signs Temp Pulse Resp BP Pulse Ox 07/01/19 11:26 99.0 F 63 18 135/59 H 94 Medical Necessity - Tobacco Use Smoking Status: Never smoker Assessment/Plan All Active Problems Diabetic foot infection (Acute) 1. Osteomyelitis LLE - ID and Podiatry following. I&D today. May need amputation. Continue Vanc/Cefepime/Flagyl. Blood cultures pending. No fever/leukocytosis. 2. JOANNA on CKDIII - improved. continue IVF until no longer NPO. 3. T2DM with morbid obesity - SSI, novolin n qd, novolin r tid. A1C 8.2. 4. Anemia with iron deficiency - stable. tsh normal, dec iron and iron sat. continue po iron. Recheck AM CBC. 5. Lymphedema - daily CHUCK wraps. 6. HTN - stable DVT ppx: heparin DC planning: SNF vs HHC, PTOT evals post op. This patient was seen by Quintin Polanco PA-C under the supervision of Dr. Rolle <Jessy Rolle - Last Filed: 07/01/19 14:29> Vitals/I&O's: Vital Signs Temp Pulse Resp BP Pulse Ox 99.0 F 63 18 135/59 H 94 07/01/19 11:26 07/01/19 11:26 07/01/19 11:26 07/01/19 11:26 07/01/19 11:26 Oxygen Delivery Method Room Air Weight: 422 lb 12.8 oz Body Mass Index (BMI) 50.1 Finger Stick Blood Glucose 222 Intake and Output for Last 24 Hours 06/29/19 06/30/19 07/01/19 23:59 23:59 23:59 Intake Total 1310 / 1610 3780.00 / 4020.00 1368.25 / 1368.25 Output Total 2125 / 2725 2900 / 2900 Balance 1310 / 1210 1655.00 / 1295.00 -1531.75 / -1531.75 Microbiology Past 72 Hours 06/29/19 13:22 Blood Culture (Wb) - Left Hand Blood Culture - Preliminary No growth in 48 hours. 06/29/19 12:28 Blood Culture (Wb) - Anticubital Right Blood Culture - Preliminary No growth in 48 hours. Laboratory Results 06/30/19 15:55: POC Glucose 123 H 06/30/19 22:15: POC Glucose 75 07/01/19 01:45: Vancomycin Trough 20.7 H 07/01/19 05:18: WBC 9.2, RBC 3.10 L, Hgb 8.2 L, Hct 26.6 L, MCV 85.8, MCH 26.5 L , MCHC 30.8 L, RDW Std Deviation 46.9 H, RDW Coeff of Pool 15.0 H, Plt Count 216, MPV 10.2, Immature Gran % (Auto) 0.500, Neut % (Auto) 74.7 H, Lymph % (Auto) 11.4 L, [place] % (Auto) 9.4, Eos % (Auto) 3.8, Baso % (Auto) 0.2, Absolute Neuts (auto) 6.8, Absolute Lymphs (auto) 1.04, Nucleated RBC % 0 07/01/19 05:18: Sodium 136, Potassium 4.6, Chloride 109 H, Carbon Dioxide 20.0 L , Anion Gap 7, BUN 46 H, Creatinine 1.78 H, Estim Creat Clear Calc 52.84, Est GFR (MDRD) Af Amer 50 L, Est GFR (MDRD) Non-Af 41 L, BUN/Creatinine Ratio 25.8 H , Glucose 110 H, Calcium 8.4 L 07/01/19 05:18: PT 14.8, INR 1.2, APTT 28.3 07/01/19 06:29: POC Glucose 119 H 07/01/19 11:23: POC Glucose 158 H Current Medications Acetaminophen (Tylenol) 650 mg PO Q6H PRN PRN PRN Reason: Pain Score 1-10/Temp > 100.7 F Last Admin: 07/01/19 01:04 Dose: 650 mg Documented by: Amlodipine Besylate (Norvasc) 5 mg PO DAILY [facility] Last Admin: 07/01/19 08:07 Dose: 5 mg Documented by: Ascorbic Acid (Vitamin C) 500 mg PO DAILY@0800 [facility] Last Admin: 07/01/19 08:07 Dose: 500 mg Documented by: Glucagon () 1 mg IM .X1 PRN PRN Reason: Hypoglycemia Guaifenesin (Mucinex) 1,200 mg PO BID [facility] Last Admin: 07/01/19 08:28 Dose: Not Given Documented by: Hydralazine HCl (Apresoline) 50 mg PO BID [facility] Last Admin: 07/01/19 08:07 Dose: 50 mg Documented by: Dextrose (Dextrose 10%-Water) 250 mls @ 999 mls/hr IV .Q16M PRN; Protocol PRN Reason: HYPOGLYCEMIA Vancomycin IV Pharmacy to Dose (1 ea/ Sodium Chloride) 500 mls @ 250 mls/hr IV PRN PRN; Protocol PRN Reason: Rx to Dose Sodium Chloride () 250 mls @ 15 mls/hr IV .[id number] PRN PRN Reason: Saline Flush Last Infusion: 07/01/19 07:00 Dose: 15 mls/hr Documented by: Sodium Chloride () 250 mls @ 15 mls/hr IV .[id number] PRN PRN Reason: Additional IVPB Infusion Cefepime HCl 2 gm/ Sodium (Chloride) 100 mls @ 200 mls/hr IV Q8 [facility] Last Infusion: 07/01/19 07:00 Dose: Infused Documented by: Vancomycin HCl 1,500 mg/ (Sodium Chloride) 530 mls @ 250 mls/hr IV Q24H [facility] Insulin Human Lispro (Humalog Kwikpen (Bkc)) 0 unit SC ACHS [facility]; Protocol Last Admin: 07/01/19 11:25 Dose: Not Given Documented by: Insulin Human Lispro (Humalog Kwikpen (Bkc)) 30 unit SC 0800,1200,1700 [facility] Last Admin: 07/01/19 11:25 Dose: Not Given Documented by: Insulin Human NPH (Humulin N (Bk)) 40 units SC 1700 [facility] Last Admin: 06/30/19 18:02 Dose: 40 units Documented by: Lisinopril (Zestril) 10 mg PO DAILY [facility] Last Admin: 07/01/19 08:14 Dose: 10 mg Documented by: Metoprolol Succinate (Toprol Xl (Beta Marshall)) 50 mg PO DAILY [facility] Last Admin: 07/01/19 08:14 Dose: 50 mg Documented by: Metronidazole (Flagyl) 500 mg PO TID [facility] Morphine Sulfate () 2 mg IV Q3H PRN PRN PRN Reason: Pain Score 6-10/10 Nutritional Formula (Vu - [place] Flavor) [facility] Last Admin: 07/01/19 08:13 Dose: 1 packet Documented by: Ondansetron HCl (Zofran) 4 mg IV Q8H PRN PRN PRN Reason: NAUSEA/VOMITING Polysaccharide Iron Complex (Ferrex 150) [facility] Last Admin: 07/01/19 08:06 Dose: 150 mg Documented by: Senna/Docusate Sodium (Senokot-S, Susy-Colace) 2 tablet PO BID PRN PRN PRN Reason: Constipation Sodium Chloride () 10 - 40 ml IV UD PRN PRN Reason: SALINE FLUSH Last Admin: 06/30/19 22:16 Dose: 10 ml Documented by: STROKE Vital Signs/Narrative: Vital Signs Temp Pulse Resp BP Pulse Ox 07/01/19 11:26 99.0 F 63 18 135/59 H 94 Assessment/Plan Patient seen by Quintin Polanco PA-C under my supervision. Patient seen and examined. He had no complaints this morning. However he said he wants to have his foot amputated because he is tired of dealing with repeated infections. I counseled patient that would be best talk to podiatry about this as he was scheduled to have I&D today. Review of stems otherwise negative. ID on board. o/e: Vital Signs Temp Pulse Resp BP Pulse Ox 99.0 F 63 18 135/59 H 94 07/01/19 11:26 07/01/19 11:26 07/01/19 11:26 07/01/19 11:26 07/01/19 11:26 General: Alert, Oriented x3, Cooperative HEENT: Atraumatic, PERRLA, EOMI, Normocephalic Neck: Supple, No JVD, Negative Carotid Bruits Lungs: Clear to auscultation, Normal air movement Cardiovascular: Regular rate, No murmurs Abdomen: Bowel Sounds Present, Soft, Non Tender, Obese Extremities: both LEs wrapped in bandage; has edema, mild redness and differential warmth of both LEs Skin: No rashes, No breakdown Musculoskeletal: No Tenderness to Palpation of Joints or Extremities Neurological: Cranial nerves II-XII grossly intact Psych/Mental Status: Normal Affect, Appropriate, Alert and oriented to time, place, person, mood and affect Patient had MRI which showed osteomyelitis of the fifth left metatarsal. Podiatry is on board and he is due to have I&D today the patient rather wishes to have amputation of his foot. To discuss further with podiatry. Continue IV vancomycin, cefepime and Flagyl. ID on board. Creatinine is also trended down to 1.78. Blood cultures are negative after 48 hours. Rest as per Quintin Polanco PA-C's ntoe, which I have reviewed and endorsed. Inpatient E&M: 60321 Subs Hosp L2
--- NOTE | 2019-07-01 13:21 | PN_ITS ---
Patient Problems: Active and Suspected Problems Diabetic foot infection (Acute) Subjective: I reviewed and discussed his case I saw him preoperative this afternoon. He relates he did some soul searching overnight and would like to consider having a more proximal amputation to proceed forward with a more functional life. He is amendable to proceed with the debridement which may include soft tissue and bone and also incision and drainage of the left foot to decompress his acute infection status this afternoon. He understands the risk, benefits, indications, complications, anticipated healing time management. He understands and elects to proceed with surgery at this time. He understands risk and complications may include but are not limited to following: pain, swelling, scarring, need for further surgery, continued infection, further limb or life loss, transfer lesions and ulcers, chronic pain, allergic reaction, blood clot. Informed surgical consent and the surgical limb were signed. I answered the patient's questions. - Physical Exam Vitals/I&O's: Vital Signs Temp Pulse Resp BP Pulse Ox 99.0 F 63 18 135/59 H 94 07/01/19 11:26 07/01/19 11:26 07/01/19 11:26 07/01/19 11:26 07/01/19 11:26 Oxygen Delivery Method Room Air Weight: 191.779 kg Body Mass Index (BMI) 50.1 Finger Stick Blood Glucose 222 Intake and Output for Last 24 Hours 06/29/19 06/30/19 07/01/19 23:59 23:59 23:59 Intake Total 1310 / 1610 3780.00 / 4020.00 1368.25 / 1368.25 Output Total 2125 / 2725 2900 / 2900 Balance 1310 / 1210 1655.00 / 1295.00 -1531.75 / -1531.75 Laboratory Results 06/30/19 15:55: POC Glucose 123 H 06/30/19 22:15: POC Glucose 75 07/01/19 01:45: Vancomycin Trough 20.7 H 07/01/19 05:18: WBC 9.2, RBC 3.10 L, Hgb 8.2 L, Hct 26.6 L, MCV 85.8, MCH 26.5 L , MCHC 30.8 L, RDW Std Deviation 46.9 H, RDW Coeff of Pool 15.0 H, Plt Count 216, MPV 10.2, Immature Gran % (Auto) 0.500, Neut % (Auto) 74.7 H, Lymph % (Auto) 11.4 L, [place] % (Auto) 9.4, Eos % (Auto) 3.8, Baso % (Auto) 0.2, Absolute Neuts (auto) 6.8, Absolute Lymphs (auto) 1.04, Nucleated RBC % 0 07/01/19 05:18: Sodium 136, Potassium 4.6, Chloride 109 H, Carbon Dioxide 20.0 L , Anion Gap 7, BUN 46 H, Creatinine 1.78 H, Estim Creat Clear Calc 52.84, Est G FR (MDRD) Af Amer 50 L, Est GFR (MDRD) Non-Af 41 L, BUN/Creatinine Ratio 25.8 H, Glucose 110 H, Calcium 8.4 L 07/01/19 05:18: PT 14.8, INR 1.2, APTT 28.3 07/01/19 06:29: POC Glucose 119 H 07/01/19 11:23: POC Glucose 158 H Current Medications Acetaminophen (Tylenol) 650 mg PO Q6H PRN PRN PRN Reason: Pain Score 1-10/Temp > 100.7 F Last Admin: 07/01/19 01:04 Dose: 650 mg Documented by: Amlodipine Besylate (Norvasc) 5 mg PO DAILY [facility] Last Admin: 07/01/19 08:07 Dose: 5 mg Documented by: Ascorbic Acid (Vitamin C) 500 mg PO DAILY@0800 [facility] Last Admin: 07/01/19 08:07 Dose: 500 mg Documented by: Glucagon () 1 mg IM .X1 PRN PRN Reason: Hypoglycemia Guaifenesin (Mucinex) 1,200 mg PO BID [facility] Last Admin: 07/01/19 08:28 Dose: Not Given Documented by: Hydralazine HCl (Apresoline) 50 mg PO BID [facility] Last Admin: 07/01/19 08:07 Dose: 50 mg Documented by: Dextrose (Dextrose 10%-Water) 250 mls @ 999 mls/hr IV .Q16M PRN; Protocol PRN Reason: HYPOGLYCEMIA Vancomycin IV Pharmacy to Dose (1 ea/ Sodium Chloride) 500 mls @ 250 mls/hr IV PRN PRN; Protocol PRN Reason: Rx to Dose Sodium Chloride () 250 mls @ 15 mls/hr IV .[id number] PRN PRN Reason: Saline Flush Last Infusion: 07/01/19 07:00 Dose: 15 mls/hr Documented by: Sodium Chloride () 250 mls @ 15 mls/hr IV .[id number] PRN PRN Reason: Additional IVPB Infusion Cefepime HCl 2 gm/ Sodium (Chloride) 100 mls @ 200 mls/hr IV Q8 [facility] Last Infusion: 07/01/19 07:00 Dose: Infused Documented by: Vancomycin HCl 1,500 mg/ (Sodium Chloride) 530 mls @ 250 mls/hr IV Q24H [facility] Insulin Human Lispro (Humalog Kwikpen (Bk)) 0 unit SC ACHS [facility]; Protocol Last Admin: 07/01/19 11:25 Dose: Not Given Documented by: Insulin Human Lispro (Humalog Kwikpen (Bk)) 30 unit SC 0800,1200,1700 [facility] Last Admin: 07/01/19 11:25 Dose: Not Given Documented by: Insulin Human NPH (Humulin N ([facility])) 40 units SC 1700 [facility] Last Admin: 06/30/19 18:02 Dose: 40 units Documented by: Lisinopril (Zestril) 10 mg PO DAILY [facility] Last Admin: 07/01/19 08:14 Dose: 10 mg Documented by: Metoprolol Succinate (Toprol Xl (Beta [place])) 50 mg PO DAILY [facility] Last Admin: 07/01/19 08:14 Dose: 50 mg Documented by: Metronidazole (Flagyl) 500 mg PO TID [facility] Morphine Sulfate () 2 mg IV Q3H PRN PRN PRN Reason: Pain Score 6-10/10 Nutritional Formula (Vu - [place] Flavor) [facility] Last Admin: 07/01/19 08:13 Dose: 1 packet Documented by: Ondansetron HCl (Zofran) 4 mg IV Q8H PRN PRN PRN Reason: NAUSEA/VOMITING Polysaccharide Iron Complex (Ferrex 150) [facility] Last Admin: 07/01/19 08:06 Dose: 150 mg Documented by: Senna/Docusate Sodium (Senokot-S, Susy-Colace) 2 tablet PO BID PRN PRN PRN Reason: Constipation Sodium Chloride () 10 - 40 ml IV UD PRN PRN Reason: SALINE FLUSH Last Admin: 06/30/19 22:16 Dose: 10 ml Documented by: Medical Necessity - Tobacco Use Smoking Status: Never smoker Assessment/Plan All Active Problems Diabetic foot infection (Acute) Essential Procedure Criteria Procedure Essential: Yes Criteria Note: He is at risk for further limb loss and even loss of life due to his infection status. He has had recurrent infections, delayed healing, and repetitive systemic illness due to soft tissue and bone infections. I recommend draining and debriding the infectious tissue in a timely manner which is cannot wait until the end of the COVID pandemic. His multiple medical comorbidities also complicate his case making him a high risk candidate. Risk to Patient if Procedure Delayed: Threat to patient's life if surgery or procedure is not performed
--- NOTE | 2019-07-01 14:15 | RAD_ITS ---
STUDY: X-RAY - LEFT FOOT CLINICAL: Male, 64 years old. I and amp; D Debridment of bone and soft tissue left foot. TECHNIQUE: 4 fluoroscopic guided view(s) of the foot. COMPARISON: None. FINDINGS: 4 fluoroscopic guided views were obtained of the left foot during debridement of bone and soft tissue at the base of the fourth and fifth toes. For more complete information recommend correlation with surgical notes RAD/Foot min 3 Views IMPRESSION: Fluoroscopic guided debridement of soft tissue and bone the base of the fourth and fifth toes Electronically Signed: Dwayne Parish MD at 17:29 EDT , Service support ,
[2019-07-01] MEDS: Bupivacaine Mpf 0.5% 30 ML VIAL (14:45)
--- NOTE | 2019-07-01 15:32 | PCM.OPRPT ---
Problem List (1) Chronic ulcer of left foot with necrosis of muscle Status: Chronic (2) Diabetic foot infection Status: Acute (3) Diabetes mellitus with polyneuropathy Status: Chronic Qualifiers: (4) Osteomyelitis of foot Status: Chronic Qualifiers: Laterality: right Report of Operation Date of Procedure: 07/01/19 Pre-Operative Diagnosis: Infected left foot including necrotizing myositis. Osteomyelitis fifth metatarsal. Chronic left foot ulcer Post-Operative Diagnosis: Infected left foot including necrotizing myositis. Osteomyelitis fifth metatarsal. Chronic left foot ulcer Surgery/Procedure Performed:: Incision and drainage with debridement of muscle. Bone biopsy left fifth metatarsal Description of Surgical Findings:: Hemostasis: Well-padded pneumatic left mid leg tourniquet (13 minutes) and anatomic dissection Materials: 2-0 nylon Specimens were sent Findings: After Versajet and surgical debridement there was no longer any necrotizing odorous devitalized tissue noted. The bone was soft at the site of the fifth metatarsal bone biopsy. See operation report for full detail The patient tolerated the procedure and anesthesia well. He was transported to the PACU with vital signs stable and vascular status intact to the left lower extremity. He will be transferred back to the medical floor upon continued stability. Specimens were sent and pending. Intraoperative fluoroscopy was utilized to confirm the desired bone biopsy placement site. Postoperative orders were entered electronically. asbestos abatement technician: none - Surgeon: Gemini Hernández DPM Type of Anesthesia:: Local - Preoperative: 16 cc of one-to-one mixture of 1% lidocaine plain and 0.5% Marcaine plain administered in typical left ankle block fashion which is proximal to the infection zone, MAC Specimen's removed: Fifth metatarsal bone sent to microbiology for aerobic, anaerobic, acid-fast, fungal. Fifth metatarsal bone sent to pathology Drains: none Estimated Blood Loss (mL): 200 mL Description of Procedure: Indications: This is a 64 year old male w/ multiple comorbidities was admitted approximately a day and a half ago for left foot chronic ulcer with progressive infection. He is not demonstrating an appropriate response to IV antibiotics and I recommended incision and drainage with debridement. Due to the devitalized tissue On the MRI findings there is also concern of osteomyelitis of the fifth metatarsal. Due to the findings with continued maloder and devitalized tissue on clinical exam, I recommended this procedure. The salvageability of this limb is questionable. This is a recurrent scenario with wounds, infections, and need for urgent surgeries. We discussed the option of having a proximal limb amputation and he would like to consider this such as a below the knee amputation or potentially more proximal pending his skin quality and vascular status. He will be referred to this specialist after his drainage incision procedures performed today to get is his limb stabilized. I advised this patient of possible benefits vs risks, goals, expectations and estimated healing time. I advised the patient of the risks including but not limited to further infection, worsening infection, pain, swelling, blood loss, deformity, need for further surgery, and also loss of limb or loss of life, blood clot, allergic reaction. Patient expressed understanding and agreement. This is a limb salvage surgery and he understands his limb and life are at risk. This is medically necessary. I answered all of his questions. The consent form was reviewed with him and he freely signed it. The surgical limb was also signed. No guarantees were given nor implied. Procedure in detail: The patient was transported to the operating room via cart and was placed on the operating room table in the supine position. He was secured to the operating table with a safety belt around his waist. Patient was already on IV antibiotics; cefepime and vancomycin, and also oral Flagyl. A well padded pneumatic tourniquet was applied around the left mid leg. I administered the left ankle block preoperative. MAC anesthesia was initiated by the anesthesia team. Patient's left foot was scrubbed, prepped and draped in the usual aseptic fashion. A timeout was performed in which the procedure plan, patient, and limb designation was confirmed. The foot was exsanguinated using an Esmarch bandage because he could not tolerate gravity exsanguination due to knee and back pain. Further attention was directed to the foot where there was significant necrotic infected nonviable soft tissue to the plantar arch of the left foot. His preoperative debridement measured 9.2 x 8.2 x 0.2 cm and was hester and fibrous with devitalized tissue and muscle. There is no leticia purulence on expression however there was a dishwater consistent drainage consistent with necrotizing fasciitis. There is positive probe to deep structures after the eschar was removed. Incision was performed across this eschar extending distal and proximal to this site and pulled a scalpel 15 blade and also versa jet and setting 8 were used until devitalized tissue was no longer visualized or smelled from an odor standpoint. There was cellulitis, edema and drainage all consistent with infection. His surgical site was debrided down to healthy, viable, bleeding soft tissue. The post debridement measurement was approximately 12 cm x 12 cm x 2.2 cm. A venous tourniquet was suspected and at this time the pneumatic tourniquet was deflated at 13 minutes. Copious saline irrigation was performed. At this time new gloves, instrumentation, and adjacent drapes were used. Intraoperative fluoroscopy was used to confirm desired position for bone biopsy and a 1 cm linear incision was made through the dorsal lateral aspect of the foot. A Nile needle bone biopsy instrument was entered in the fifth metatarsal and this was sent to both microbiology and pathology; the results are pending. Copious irrigation was performed again. Nylon suture was used to reapproximate the skin at this site utilizing simple suture technique. Direct pressure and electrocauterization was utilized to control hemostasis. A dressing was applied which consisted of Betadine soaked gauze, dry 4x4 gauze, abd pads, kerlix and marlo bandages. There was no pulsatile bleeding and the tissue appeared viable at the end of this procedure. After procedure: The patient tolerated the procedure well and the anesthesia well with no complications. The patient was transported from the operating room to the recovery room with vital signs stable and in good condition. He was advised to continue with a non weightbearing status to the left foot and to keep left foot elevated at all times. He will continue on IV cefepime, vancomycin and oral Flagyl. Infectious disease is also on consultation and input will be greatly appreciated. The salvageability of his limb is not confirmed and he will proceed with a consultation for a leg amputation most likely in the outpatient setting. He was advised to maintain elevation of bilateral lower extremities. He was advised to maintain a nonweightbearing status to left lower extremity. He will work with PT and OT while in house. Postoperative orders were entered electronically. This patient will be followed closely as and inpatient. Gemini Hernández DPM, [facility] - Complications none - Admit VTE Documentation VTE Present on Admission: No VTE Mechan Device Prophylaxis: SCD's VTE Pharm Prophylaxis ordered?: Yes
[2019-07-01 17:41] LABS: Bedside Glucose 149 mg/dL (70-110)
[2019-07-01] MEDS: 0.9% Saline Lock 10 ML Syringe IV (22:02)
[2019-07-01] MEDS: Nystatin Powder 15gm Bottle 1 APPLIC TOPICAL (22:04)
[2019-07-01] MEDS: metroNIDAZOLE 500 MG Tablet PO (22:05)
[2019-07-01] MEDS: guaiFENesin 1,200 MG Tablet 1200 MG PO (22:05)
[2019-07-01] MEDS: Insulin Lispro 100 UNIT/ML INSULN.PEN SC (22:08)
[2019-07-01 22:31] LABS: Bedside Glucose 172 mg/dL (70-110)
[2019-07-02] VITALS (9 sets, daily range): BP systolic 149–171; BP diastolic 45–70; PULSE 66–81; RESP 18; TEMP 37.2–37.7; O2SAT 91–96
[2019-07-02] MEDS: 0.9% Saline Lock 10 ML Syringe IV (02:09)
[2019-07-02 06:03] LABS: Absolute Lymphocyte Count 1.06 X10^3/uL (0.83-4.51); Absolute Neutrophil Count 7.9 X10^3/uL (2.0-7.7); Basophil# 0.03 X10^3/uL; Basophil% 0.3 % (0-1); Eosinophil# 0.29 X10^3/uL; Eosinophils% 2.8 % (0-5); Hematocrit 25.9 % (40-54); Lymphocyte # 1.06 X10^3/ul (4.0); Lymphocyte % 10.3 % (19-41); Mean Corp Hgb Conc 30.9 g/dL (32-36); Mean Corpuscular Hgb 26.2 pg (27.0-32.0); Mean Corpuscular Volume 84.9 fL (80-94); Mean Platelet Vol. 10.5 fl (6.2-12.0); Monocyte# 0.92 X10^3/uL; NRBC Flagged by Analyzer 0 % (0-5); Neutrophil % 77.1 % (47-70); Platelet Count 246 K/mm3 (150-450); RBC Distribution Width CV 15.1 % (11.6-14.6); RBC Distribution Width SD 46.7 fl (35.1-43.9); Red Blood Count 3.05 M/mm3 (4.6-6.2); White Blood Count 10.3 K/mm3 (4.4-11.0)
[2019-07-02 06:26] LABS: Anion Gap 6 (5-15); BUN 39 mg/dL (7-18); BUN/Creat Ratio 25.3 RATIO (10-20); Calcium,Total 8.8 mg/dL (8.5-10.1); Chloride 110 mmol/L (98-107); Creatinine, Serum 1.54 mg/dL (0.70-1.30); EST Glomerular Filtration Rate 49 mL/min (>60); Est Glom Filt Rate - Afr Amer 59 mL/min (>60); Estimated Creatinine Clearance 61.07 ml/min; Glucose 178 mg/dL (74-106); Potassium 4.7 mmol/L (3.5-5.1); Sodium Level 138 mmol/L (136-145)
[2019-07-02] MEDS: metroNIDAZOLE 500 MG Tablet PO ×3 (06:47→20:46)
[2019-07-02] MEDS: Nystatin Powder 15gm Bottle 1 APPLIC TOPICAL ×3 (06:47→20:47)
[2019-07-02] MEDS: Insulin Lispro 100 UNIT/ML INSULN.PEN SC (06:50)
[2019-07-02 07:00] LABS: Bedside Glucose 176 mg/dL (70-110)
--- NOTE | 2019-07-02 08:55 | PN_ITS ---
Patient Problems: Active and Suspected Problems Diabetic foot infection (Acute) Subjective: This 64-year-old male was seen today postoperative day #1 left foot widespread incision and drainage with debridement. He denies foot pain. He denies fever, chill, nausea, vomiting, shortness of breath, chest pain, calf pain. He is rest ing with his leg dangling in the dependent position upon arrival today. - Physical Exam Vitals/I&O's: Vital Signs Temp Pulse Resp BP Pulse Ox 99.0 F 80 18 167/56 H 94 07/02/19 08:48 07/02/19 08:48 07/02/19 08:48 07/02/19 08:48 07/02/19 08:48 Oxygen Delivery Method Room Air Weight: 191.779 kg Body Mass Index (BMI) 50.1 Finger Stick Blood Glucose 222 Intake and Output for Last 24 Hours 06/30/19 07/01/19 07/02/19 23:59 23:59 23:59 Intake Total 3780.00 / 4020.00 1960.00 / 1960.00 1030 / 1030 Output Total 2125 / 2725 4350 / 4350 800 / 800 Balance 1655.00 / 1295.00 -2390.00 / -2390.00 230 / 230 General: Alert, Oriented x3, Cooperative HEENT: Atraumatic Extremities: No cyanosis, Capillary Refill Less than 3 Seconds, No Calf Tenderness - Negative Keara and Simmons sign left, Diminished Peripheral Pulses, Edema - Bilateral lower extremity Skin: Ulcer/ Wound - Widespread incision and drainage left foot without any necrosis, maceration, purulence on expression. His odor is resolved. The adjacent skin maceration is also decreasing. His adjacent skin is also atrophic and hairless. The bone biopsy site has a suture intact to the dorsal lateral foot Musculoskeletal: No Tenderness to Palpation of Joints or Extremities, Muscle Wasting, - - Transmetatarsal amputation Neurological: - - Lack of normal epicritic sensation light touch is consistent with neuropathy status Psych/Mental Status: Normal Affect, Appropriate Microbiology Past 72 Hours 06/29/19 13:22 Blood Culture (Wb) - Left Hand Blood Culture - Preliminary No growth in 48 hours. 06/29/19 12:28 Blood Culture (Wb) - Anticubital Right Blood Culture - Preliminary No growth in 48 hours. Laboratory Results 07/01/19 11:23: POC Glucose 158 H 07/01/19 17:31: POC Glucose 149 H 07/01/19 22:07: POC Glucose 172 H 07/02/19 05:05: WBC 10.3, RBC 3.05 L, Hgb 8.0 L, Hct 25.9 L, MCV 84.9, MCH 26.2 L, MCHC 30.9 L, RDW Std Deviation 46.7 H, RDW Coeff of Pool 15.1 H, Plt Count 246, MPV 10.5, Immature Gran % (Auto) 0.500, Neut % (Auto) 77.1 H, Lymph % (Auto) 10.3 L, [place] % (Auto) 9.0, Eos % (Auto) 2.8, Baso % (Auto) 0.3, Absolute Neuts (auto) 7.9 H, Absolute Lymphs (auto) 1.06, Nucleated RBC % 0 07/02/19 05:05: Sodium 138, Potassium 4.7, Chloride 110 H, Carbon Dioxide 22.0, Anion Gap 6, BUN 39 H, Creatinine 1.54 H, Estim Creat Clear Calc 61.07, Est GFR (MDRD) Af Amer 59 L, Est GFR (MDRD) Non-Af 49 L, BUN/Creatinine Ratio 25.3 H, Glucose 178 H, Calcium 8.8 07/02/19 06:49: POC Glucose 176 H Current Medications Acetaminophen (Tylenol) 650 mg PO Q6H PRN PRN PRN Reason: Pain Score 1-10/Temp > 100.7 F Last Admin: 07/01/19 22:17 Dose: 650 mg Documented by: Hydrocodone Bitart/Acetaminophen ([place] 5mg-325mg) 1 tablet PO Q6H PRN PRN PRN Reason: Pain Score 6-10/10 Amlodipine Besylate (Norvasc) 5 mg PO DAILY [facility] Last Admin: 07/01/19 08:07 Dose: 5 mg Documented by: Ascorbic Acid (Vitamin C) 500 mg PO DAILY@0800 [facility] Last Admin: 07/01/19 08:07 Dose: 500 mg Documented by: Glucagon () 1 mg IM .X1 PRN PRN Reason: Hypoglycemia Guaifenesin (Mucinex) 1,200 mg PO BID [facility] Last Admin: 07/01/19 22:05 Dose: 1,200 mg Documented by: Hydralazine HCl (Apresoline) 50 mg PO BID [facility] Last Admin: 07/01/19 22:04 Dose: 50 mg Documented by: Dextrose (Dextrose 10%-Water) 250 mls @ 999 mls/hr IV .Q16M PRN; Protocol PRN Reason: HYPOGLYCEMIA Vancomycin IV Pharmacy to Dose (1 ea/ Sodium Chloride) 500 mls @ 250 mls/hr IV PRN PRN; Protocol PRN Reason: Rx to Dose Sodium Chloride () 250 mls @ 15 mls/hr IV .[id number] PRN PRN Reason: Saline Flush Last Infusion: 07/02/19 04:16 Dose: 15 mls/hr Documented by: Sodium Chloride () 250 mls @ 15 mls/hr IV .[id number] PRN PRN Reason: Additional IVPB Infusion Cefepime HCl 2 gm/ Sodium (Chloride) 100 mls @ 200 mls/hr IV Q8 [facility] Last Infusion: 07/02/19 07:31 Dose: Infused Documented by: Vancomycin HCl 1,500 mg/ (Sodium Chloride) 530 mls @ 250 mls/hr IV Q24H [facility] Last Infusion: 07/02/19 04:16 Dose: Infused Documented by: Insulin Human Lispro (Humalog Kwikpen (Bkc)) 0 unit SC ACHS [facility]; Protocol Last Admin: 07/02/19 06:50 Dose: 1 unit Documented by: Insulin Human Lispro (Humalog Kwikpen (Bkc)) 30 unit SC 0800,1200,1700 [facility] Last Admin: 07/01/19 17:32 Dose: Not Given Documented by: Insulin Human NPH (Humulin N (Bk)) 40 units SC 1700 [facility] Last Admin: 07/01/19 17:33 Dose: Not Given Documented by: Lisinopril (Zestril) 10 mg PO DAILY [facility] Last Admin: 07/01/19 08:14 Dose: 10 mg Documented by: Metoprolol Succinate (Toprol Xl (Beta [place])) 50 mg PO DAILY [facility] Last Admin: 07/01/19 08:14 Dose: 50 mg Documented by: Metronidazole (Flagyl) 500 mg PO TID [facility] Last Admin: 07/02/19 06:47 Dose: 500 mg Documented by: Morphine Sulfate () 2 mg IV Q3H PRN PRN PRN Reason: Pain Score 6-10/10 Nutritional Formula (Vu - [place] Flavor) 1 packet PO BIDCM [facility] Last Admin: 07/01/19 17:33 Dose: 1 packet Documented by: Nystatin (Mycostatin Powder) 1 applic TOPICAL TID [facility]; Protocol Last Admin: 07/02/19 06:47 Dose: 1 applicatio Documented by: Ondansetron HCl (Zofran) 4 mg IV Q8H PRN PRN PRN Reason: NAUSEA/VOMITING Polysaccharide Iron Complex (Ferrex 150) [facility] Last Admin: 07/01/19 08:06 Dose: 150 mg Documented by: Senna/Docusate Sodium (Senokot-S, Susy-Colace) 2 tablet PO BID PRN PRN PRN Reason: Constipation Sodium Chloride () 10 - 40 ml IV UD PRN PRN Reason: SALINE FLUSH Last Admin: 07/02/19 02:09 Dose: 10 ml Documented by: Medical Necessity - Tobacco Use Smoking Status: Never smoker Assessment/Plan All Active Problems Diabetic foot infection (Acute) Status post day 1 left foot widespread incision with debridement of necrotic muscle with bone biopsy of fifth metatarsal secondary to left foot infection with chronic ulceration and concern of deep abscess Right foot ulcer stable Osteomyelitis 5th metatarsal is suspected Diabetes with neuropathy Peripheral vascular disease Chronic kidney disease with acute kidney injury Obesity Debilitation Other comorbidities I discussed his case and treatment plan. The surgical site was irrigated with normal saline and a new dressing was applied. I recommend changing this again this evening with saline irrigation. Upon continued stability a wound VAC may be considered. Infectious disease consultation is greatly appreciated. His erythema and odor has completely resolved. His temperature still consistently running in the 99's. His blood cultures are negative. The preoperative wound cultures are demonstrating E. coli, Pseudomonas, corynebacterium stratum, Staphylococcus species growth. The intraoperative fifth metatarsal bone biopsies that were sent to microbiology and pathology are pending. He is on cefepime, vancomycin, flagyl. Nonweightbearing weightbearing he was advised to continue strict elevation of the involved limb and continued offloading. A wedge was ordered to better elevate his left surgical limb. Discharge will be considered after continued stability is confirmed with his foot. He will continue to work with PT and OT to help guide his discharge safety status. We discussed the long-term management of his limb salvage ability and he would like to proceed with considering a proximal leg amputation such as a potential below knee amputation. A referral be provided in the outpatient setting. It is noted he has had recurrent high frequency of ulcers with delayed healing and infections resulting in continued systemic illness as well. We discussed the benefits and complications associated with moving forward with a more proximal amputation. He understands that there are risks and complications including continued infection and nonhealing. The goal would be to prevent recurrent infections and demanding home care and to ultimately improve his functionality and daily quality of life. He will continue with wound care to his stable right foot ulcer sites and compression management as well. I will follow him close while in house. Gemini Hernández DPM, [facility] [phone]
[2019-07-02] MEDS: Iron Polysaccharide Complex 150 MG CAPSULE PO (09:06)
[2019-07-02] MEDS: guaiFENesin 1,200 MG Tablet 1200 MG PO ×2 (09:07→20:46)
[2019-07-02] MEDS: amLODIPine 5 MG Tablet PO (09:07)
[2019-07-02] MEDS: hydrALAZINE 50 MG Tablet PO ×2 (09:07→20:46)
[2019-07-02] MEDS: Ascorbic Acid 500 MG Tablet PO (09:07)
[2019-07-02] MEDS: Metoprolol(XL)Succ 50 MG Tablet PO (09:08)
[2019-07-02] MEDS: Lisinopril 10 MG Tablet PO (09:08)
[2019-07-02] MEDS: Insulin Lispro 100 UNIT/ML INSULN.PEN 30 UNIT SC (09:10)
[2019-07-02 11:31] LABS: Bedside Glucose 128 mg/dL (70-110)
--- NOTE | 2019-07-02 12:42 | PN_ITS ---
<Quintin Polanco - Last Filed: 07/02/19 12:42> Patient Problems: Active and Suspected Problems Diabetic foot infection (Acute) Reason for Visit: nonhealing LLE wound Subjective: Pain in LLE improved. No fever/chills. Pt complains of new onset multiple watery diarrheas. No hx Cdiff. No abd pain/cramping. No SOB/cough. Vitals/I&O's: Vital Signs Temp Pulse Resp BP Pulse Ox 99.0 F 80 18 167/56 H 91 07/02/19 08:48 07/02/19 09:08 07/02/19 08:48 07/02/19 08:48 07/02/19 10:40 Oxygen Delivery Method Room Air Weight: 422 lb 12.8 oz Body Mass Index (BMI) 50.1 Finger Stick Blood Glucose 222 Intake and Output for Last 24 Hours 06/30/19 07/01/19 07/02/19 23:59 23:59 23:59 Intake Total 3780.00 / 4020.00 1960.00 / 1960.00 1709.75 / 1709.75 Output Total 2125 / 2725 4350 / 4350 1570 / 1570 Balance 1655.00 / 1295.00 -2390.00 / -2390.00 139.75 / 139.75 General: Alert, Oriented x3, Cooperative HEENT: Atraumatic, PERRLA, EOMI, Normocephalic Neck: Supple, No JVD, Negative Carotid Bruits Lungs: Clear to auscultation, Normal air movement Cardiovascular: Regular rate, No murmurs Abdomen: Bowel Sounds Present, Soft, Non Tender, Obese Extremities: No edema, Capillary Refill Less than 3 Seconds Skin: No rashes, No breakdown Musculoskeletal: No Tenderness to Palpation of Joints or Extremities Neurological: Cranial nerves II-XII grossly intact Psych/Mental Status: Normal Affect, Appropriate, Alert and oriented to time, place, person, mood and affect Microbiology Past 72 Hours 07/01/19 14:58 Other - Other Gram Stain - Final 07/01/19 14:58 Other - Other Wound Culture - Preliminary No growth-Final to follow 06/29/19 13:22 Blood Culture (Wb) - Left Hand Blood Culture - Preliminary No growth in 48 hours. 06/29/19 12:28 Blood Culture (Wb) - Anticubital Right Blood Culture - Preliminary No growth in 48 hours. Laboratory Results 07/01/19 17:31: POC Glucose 149 H 07/01/19 22:07: POC Glucose 172 H 07/02/19 05:05: WBC 10.3, RBC 3.05 L, Hgb 8.0 L, Hct 25.9 L, MCV 84.9, MCH 26.2 L, MCHC 30.9 L, RDW Std Deviation 46.7 H, RDW Coeff of Pool 15.1 H, Plt Count 246, MPV 10.5, Immature Gran % (Auto) 0.500, Neut % (Auto) 77.1 H, Lymph % (Auto) 10.3 L, [place] % (Auto) 9.0, Eos % (Auto) 2.8, Baso % (Auto) 0.3, Absolute Neuts (auto) 7.9 H, Absolute Lymphs (auto) 1.06, Nucleated RBC % 0 07/02/19 05:05: Sodium 138, Potassium 4.7, Chloride 110 H, Carbon Dioxide 22.0, Anion Gap 6, BUN 39 H, Creatinine 1.54 H, Estim Creat Clear Calc 61.07, Est GFR (MDRD) Af Amer 59 L, Est GFR (MDRD) Non-Af 49 L, BUN/Creatinine Ratio 25.3 H, Glucose 178 H, Calcium 8.8 07/02/19 06:49: POC Glucose 176 H 07/02/19 11:21: POC Glucose 128 H Current Medications Acetaminophen (Tylenol) 650 mg PO Q6H PRN PRN PRN Reason: Pain Score 1-10/Temp > 100.7 F Last Admin: 07/01/19 22:17 Dose: 650 mg Documented by: Hydrocodone Bitart/Acetaminophen ([place] 5mg-325mg) 1 tablet PO Q6H PRN PRN PRN Reason: Pain Score 6-10/10 Amlodipine Besylate (Norvasc) 5 mg PO DAILY [facility] Last Admin: 07/02/19 09:07 Dose: 5 mg Documented by: Ascorbic Acid (Vitamin C) 500 mg PO DAILY@0800 [facility] Last Admin: 07/02/19 09:07 Dose: 500 mg Documented by: Glucagon () 1 mg IM .X1 PRN PRN Reason: Hypoglycemia Guaifenesin (Mucinex) 1,200 mg PO BID [facility] Last Admin: 07/02/19 09:07 Dose: 1,200 mg Documented by: Hydralazine HCl (Apresoline) 50 mg PO BID [facility] Last Admin: 07/02/19 09:07 Dose: 50 mg Documented by: Dextrose (Dextrose 10%-Water) 250 mls @ 999 mls/hr IV .Q16M PRN; Protocol PRN Reason: HYPOGLYCEMIA Vancomycin IV Pharmacy to Dose (1 ea/ Sodium Chloride) 500 mls @ 250 mls/hr IV PRN PRN; Protocol PRN Reason: Rx to Dose Sodium Chloride () 250 mls @ 15 mls/hr IV .[id number] PRN PRN Reason: Saline Flush Last Infusion: 07/02/19 09:35 Dose: 0 mls/hr Documented by: Sodium Chloride () 250 mls @ 15 mls/hr IV .[id number] PRN PRN Reason: Additional IVPB Infusion Cefepime HCl 2 gm/ Sodium (Chloride) 100 mls @ 200 mls/hr IV Q8 [facility] Last Infusion: 07/02/19 07:31 Dose: Infused Documented by: Vancomycin HCl 1,500 mg/ (Sodium Chloride) 530 mls @ 250 mls/hr IV Q24H [facility] Last Infusion: 07/02/19 04:16 Dose: Infused Documented by: Insulin Human Lispro (Humalog Kwikpen (Bkc)) 0 unit SC ACHS [facility]; Protocol Last Admin: 07/02/19 11:23 Dose: Not Given Documented by: Insulin Human Lispro (Humalog Kwikpen (Bkc)) 30 unit SC 0800,1200,1700 [facility] Last Admin: 07/02/19 11:22 Dose: Not Given Documented by: Insulin Human NPH (Humulin N (Bkc)) 40 units SC 1700 [facility] Last Admin: 07/01/19 17:33 Dose: Not Given Documented by: Lisinopril (Zestril) 10 mg PO DAILY [facility] Last Admin: 07/02/19 09:08 Dose: 10 mg Documented by: Metoprolol Succinate (Toprol Xl (Beta Marshall)) 50 mg PO DAILY [facility] Last Admin: 07/02/19 09:08 Dose: 50 mg Documented by: Metronidazole (Flagyl) 500 mg PO TID [facility] Last Admin: 07/02/19 06:47 Dose: 500 mg Documented by: Morphine Sulfate () 2 mg IV Q3H PRN PRN PRN Reason: Pain Score 6-10/10 [facility]al [facility] [place] [facility] Last Admin: 07/02/19 09:06 Dose: 1 packet Documented by: Nystatin (Mycostatin Powder) 1 applic TOPICAL TID [facility]; Protocol Last Admin: 07/02/19 06:47 Dose: 1 applicatio Documented by: Ondansetron HCl (Zofran) 4 mg IV Q8H PRN PRN PRN Reason: NAUSEA/VOMITING Polysaccharide Iron Complex (Ferrex 150) [facility] Last Admin: 07/02/19 09:06 Dose: 150 mg Documented by: Senna/Docusate Sodium (Senokot-S, Susy-Colace) 2 tablet PO BID PRN PRN PRN Reason: Constipation Sodium Chloride () 10 - 40 ml IV UD PRN PRN Reason: SALINE FLUSH Last Admin: 07/02/19 02:09 Dose: 10 ml Documented by: STROKE Vital Signs/Narrative: Vital Signs Temp Pulse Resp BP Pulse Ox 07/02/19 10:40 91 07/02/19 09:08 80 07/02/19 09:07 80 07/02/19 08:48 99.0 F 80 18 167/56 H 94 Medical Necessity - Tobacco Use Smoking Status: Never smoker Assessment/Plan All Active Problems Diabetic foot infection (Acute) 1. Osteomyelitis LLE - ID and Podiatry following. I&D POD#1. May need amputation. Continue Vanc/Cefepime/Flagyl. Blood cultures pending. No fever/leukocytosis. Blood cx negative. Surgical cx pending. 2. JOANNA on CKDIII - resolved. off IVF. 3. T2DM with morbid obesity - SSI, novolin n qd, novolin r tid. A1C 8.2. 4. Anemia with iron deficiency - stable. tsh normal, dec iron and iron sat. continue po iron. Recheck AM CBC. 5. Lymphedema - daily CHUCK wraps. 6. HTN - stable 7. New onset diarrhea - check stool for Cdiff, no prior hx. DVT ppx: heparin DC planning: SNF vs HHC, PTOT This patient was seen by Quintin Polanco PA-C under the supervision of Dr. Rolle <Jessy Rolle - Last Filed: 07/02/19 16:36> Vitals/I&O's: Vital Signs Temp Pulse Resp BP Pulse Ox 99.0 F 80 18 167/56 H 91 07/02/19 08:48 07/02/19 09:08 07/02/19 08:48 07/02/19 08:48 07/02/19 10:40 Oxygen Delivery Method Room Air Weight: 422 lb 12.8 oz Body Mass Index (BMI) 50.1 Finger Stick Blood Glucose 222 Intake and Output for Last 24 Hours 06/30/19 07/01/19 07/02/19 23:59 23:59 23:59 Intake Total 3780.00 / 4020.00 1960.00 / 1960.00 1709.75 / 1709.75 Output Total 2125 / 2725 4350 / 4350 1570 / 1570 Balance 1655.00 / 1295.00 -2390.00 / -2390.00 139.75 / 139.75 Microbiology Past 72 Hours 07/01/19 14:58 Other - Other Gram Stain - Final 07/01/19 14:58 Other - Other Wound Culture - Preliminary No growth-Final to follow 06/29/19 13:22 Blood Culture (Wb) - Left Hand Blood Culture - Preliminary No growth in 48 hours. 06/29/19 12:28 Blood Culture (Wb) - Anticubital Right Blood Culture - Preliminary No growth in 48 hours. Laboratory Results 07/01/19 17:31: POC Glucose 149 H 07/01/19 22:07: POC Glucose 172 H 07/02/19 05:05: WBC 10.3, RBC 3.05 L, Hgb 8.0 L, Hct 25.9 L, MCV 84.9, MCH 26.2 L, MCHC 30.9 L, RDW Std Deviation 46.7 H, RDW Coeff of Pool 15.1 H, Plt Count 246, MPV 10.5, Immature Gran % (Auto) 0.500, Neut % (Auto) 77.1 H, Lymph % (Auto) 10.3 L, [place] % (Auto) 9.0, Eos % (Auto) 2.8, Baso % (Auto) 0.3, Absolute Neuts (auto) 7.9 H, Absolute Lymphs (auto) 1.06, Nucleated RBC % 0 07/02/19 05:05: Sodium 138, Potassium 4.7, Chloride 110 H, Carbon Dioxide 22.0, Anion Gap 6, BUN 39 H, Creatinine 1.54 H, Estim Creat Clear Calc 61.07, Est GFR (MDRD) Af Amer 59 L, Est GFR (MDRD) Non-Af 49 L, BUN/Creatinine Ratio 25.3 H, Glucose 178 H, Calcium 8.8 07/02/19 06:49: POC Glucose 176 H 07/02/19 11:21: POC Glucose 128 H Current Medications Acetaminophen (Tylenol) 650 mg PO Q6H PRN PRN PRN Reason: Pain Score 1-10/Temp > 100.7 F Last Admin: 07/01/19 22:17 Dose: 650 mg Documented by: Hydrocodone Bitart/Acetaminophen ([place] 5mg-325mg) 1 tablet PO Q6H PRN PRN PRN Reason: Pain Score 6-10/10 Amlodipine Besylate (Norvasc) 5 mg PO DAILY [facility] Last Admin: 07/02/19 09:07 Dose: 5 mg Documented by: Ascorbic Acid (Vitamin C) 500 mg PO DAILY@0800 [facility] Last Admin: 07/02/19 09:07 Dose: 500 mg Documented by: Glucagon () 1 mg IM .X1 PRN PRN Reason: Hypoglycemia Guaifenesin (Mucinex) 1,200 mg PO BID [facility] Last Admin: 07/02/19 09:07 Dose: 1,200 mg Documented by: Hydralazine HCl (Apresoline) 50 mg PO BID [facility] Last Admin: 07/02/19 09:07 Dose: 50 mg Documented by: Dextrose (Dextrose 10%-Water) 250 mls @ 999 mls/hr IV .Q16M PRN; Protocol PRN Reason: HYPOGLYCEMIA Vancomycin IV Pharmacy to Dose (1 ea/ Sodium Chloride) 500 mls @ 250 mls/hr IV PRN PRN; Protocol PRN Reason: Rx to Dose Sodium Chloride () 250 mls @ 15 mls/hr IV .[id number] PRN PRN Reason: Saline Flush Last Infusion: 07/02/19 09:35 Dose: 0 mls/hr Documented by: Sodium Chloride () 250 mls @ 15 mls/hr IV .[id number] PRN PRN Reason: Additional IVPB Infusion Cefepime HCl 2 gm/ Sodium (Chloride) 100 mls @ 200 mls/hr IV Q8 [facility] Last Infusion: 07/02/19 07:31 Dose: Infused Documented by: Vancomycin HCl 1,500 mg/ (Sodium Chloride) 530 mls @ 250 mls/hr IV Q24H [facility] Last Infusion: 07/02/19 04:16 Dose: Infused Documented by: Insulin Human Lispro (Humalog Kwikpen (Bkc)) 0 unit SC ACHS [facility]; Protocol Last Admin: 07/02/19 11:23 Dose: Not Given Documented by: Insulin Human Lispro (Humalog Kwikpen (Bkc)) 30 unit SC 0800,1200,1700 [facility] Last Admin: 07/02/19 11:22 Dose: Not Given Documented by: Insulin Human NPH (Humulin N ([facility])) 40 units SC 1700 [facility] Last Admin: 07/01/19 17:33 Dose: Not Given Documented by: Lisinopril (Zestril) 10 mg PO DAILY [facility] Last Admin: 07/02/19 09:08 Dose: 10 mg Documented by: Metoprolol Succinate (Toprol Xl (Beta Marshall)) 50 mg PO DAILY [facility] Last Admin: 07/02/19 09:08 Dose: 50 mg Documented by: Metronidazole (Flagyl) 500 mg PO TID [facility] Last Admin: 07/02/19 06:47 Dose: 500 mg Documented by: Morphine Sulfate () 2 mg IV Q3H PRN PRN PRN Reason: Pain Score 6-10/10 Nutritional Formula ([facility] - [place] Flavor) [facility] Last Admin: 07/02/19 09:06 Dose: 1 packet Documented by: Nystatin (Mycostatin Powder) 1 applic TOPICAL TID [facility]; Protocol Last Admin: 07/02/19 06:47 Dose: 1 applicatio Documented by: Ondansetron HCl (Zofran) 4 mg IV Q8H PRN PRN PRN Reason: NAUSEA/VOMITING Polysaccharide Iron Complex (Ferrex 150) [facility] Last Admin: 07/02/19 09:06 Dose: 150 mg Documented by: Senna/Docusate Sodium (Senokot-S, Susy-Colace) 2 tablet PO BID PRN PRN PRN Reason: Constipation Sodium Chloride () 10 - 40 ml IV UD PRN PRN Reason: SALINE FLUSH Last Admin: 07/02/19 02:09 Dose: 10 ml Documented by: STROKE Vital Signs/Narrative: Vital Signs Pulse Ox 07/02/19 10:40 91 Assessment/Plan Patient seen by Quintin Polanco PA-C under my supervision Patient seen and examiend. He had I&D done yesterday. He tolerated procedure well. He had no complaints this morning. Labs and vitals reviewed. o/e: Vital Signs Temp Pulse Resp BP Pulse Ox 99.0 F 80 18 167/56 H 91 07/02/19 08:48 07/02/19 09:08 07/02/19 08:48 07/02/19 08:48 07/02/19 10:40 General: Alert, Oriented x3, Cooperative HEENT: Atraumatic, PERRLA, EOMI, Normocephalic Neck: Supple, No JVD, Negative Carotid Bruits Lungs: Clear to auscultation, Normal air movement Cardiovascular: Regular rate, No murmurs Abdomen: Bowel Sounds Present, Soft, Non Tender, Obese Extremities: both LEs wrapped in bandage; has edema, mild redness and differential warmth of both LEs Skin: No rashes, No breakdown Musculoskeletal: No Tenderness to Palpation of Joints or Extremities Neurological: Cranial nerves II-XII grossly intact Psych/Mental Status: Normal Affect, Appropriate, Alert and oriented to time, place, person, mood and affect Todal is postop day 1 of I&D of left fifth metatarsal with debridement of muscle. Blood cultures are negative. Wound cultures are growing E. coli, Pseudomonas and corynebacterium as well as staph. Bone biopsies are pending. He remains on IV vancomycin, Flagyl and cefepime. ID and podiatry on board. Patient did discuss with podiatry about amputation of his foot and podiatry will follow up and refer him on outpatient setting. Rest as per Quintin Polanco PA-C's note, which I have reviewed and endorsed. Inpatient E&M: 63356 Subs Hosp L2
[2019-07-02 16:31] LABS: Bedside Glucose 137 mg/dL (70-110)
[2019-07-02 21:41] LABS: Bedside Glucose 178 mg/dL (70-110)
[2019-07-02] MEDS: Acetaminophen 325 MG Tablet 650 MG PO (23:20)
[2019-07-03] VITALS (9 sets, daily range): BP systolic 158–178; BP diastolic 48–66; PULSE 73–82; RESP 16–20; TEMP 36.8–37; O2SAT 90–96
[2019-07-03 01:56] LABS: Vancomycin, Trough Level 19.7 ug/mL (5.0-15.0)
--- NOTE | 2019-07-03 02:55 | PCM.RX.CS ---
Consult Pharmacy has been consulted to manage selected antiobiotic: Vancomycin Type of Consult: Follow-up Suspected Infection: Skin/Soft tissue Prior Doses of Antibiotics Received/Current Regimen: Medications Vancomycin HCl 1,250 mg/ (Sodium Chloride) 275 mls @ 167 mls/hr IV Q24H [facility]IM Vancomycin HCl 1,500 mg/ (Sodium Chloride) 530 mls @ 250 mls/hr IV Q24H [facility] Stop: 07/03/19 04:22 Last Admin: 07/03/19 02:14 Dose: 250 mls/hr Labs: Sodium 138 mmol/L (136-145) 07/02/19 05:05 Potassium 4.7 mmol/L (3.5-5.1) 07/02/19 05:05 Chloride 110 mmol/L (98-107) H 07/02/19 05:05 Carbon Dioxide 22.0 mmol/L (21.0-32.0) 07/02/19 05:05 Anion Gap 6 (5-15) 07/02/19 05:05 BUN 39 mg/dL (7-18) H 07/02/19 05:05 Creatinine 1.54 mg/dL (0.70-1.30) H 07/02/19 05:05 Est GFR (MDRD) Af Amer 59 mL/min (>60) L 07/02/19 05:05 Est GFR (MDRD) Non-Af 49 mL/min (>60) L 07/02/19 05:05 BUN/Creatinine Ratio 25.3 RATIO (10-20) H 07/02/19 05:05 Glucose 178 mg/dL (74-106) H 07/02/19 05:05 Vancomycin Trough 19.7 ug/mL (5.0-15.0) H 07/03/19 01:15 Microbiology: Microbiology 07/02/19 13:54 Stool C. difficile DNA Amplification - Final 07/01/19 14:58 Other - Other Gram Stain - Final 07/01/19 14:58 Other - Other Wound Culture - Preliminary No growth-Final to follow 06/29/19 13:22 Blood Culture (Wb) - Left Hand Blood Culture - Preliminary No growth in 48 hours. 06/29/19 12:28 Blood Culture (Wb) - Anticubital Right Blood Culture - Preliminary No growth in 48 hours. Weight used for dosin.8 kg Estimated Creatinine Clearance: 61 Goal Trough: 10-15 mcg/mL Pharmacy Plan for Drug Dosing: Trough level of 19.7 was still above target range of 10-15. Will decrease dose to 1250mg q24h and re-draw trough 07/05/19. Pharmacy Service will continue to monitor and adjust dosing as required. Follow-Up Labs: Trough Vancomycin Labs to be done on [date and time ordered]: 07/05/19 @0131
[2019-07-03] MEDS: metroNIDAZOLE 500 MG Tablet PO ×3 (06:24→21:16)
[2019-07-03 06:38] LABS: Absolute Lymphocyte Count 1.11 X10^3/uL (0.83-4.51); Absolute Neutrophil Count 6.9 X10^3/uL (2.0-7.7); Basophil# 0.04 X10^3/uL; Basophil% 0.4 % (0-1); Eosinophil# 0.36 X10^3/uL; Eosinophils% 3.8 % (0-5); Hematocrit 27.3 % (40-54); Hemoglobin 8.4 g/dL (13.0-16.5); Lymphocyte # 1.11 X10^3/ul (4.0); Lymphocyte % 11.8 % (19-41); Mean Corp Hgb Conc 30.8 g/dL (32-36); Mean Corpuscular Hgb 26.6 pg (27.0-32.0); Mean Corpuscular Volume 86.4 fL (80-94); Monocyte# 0.86 X10^3/uL; Monocyte% 9.2 % (0-10); NRBC Flagged by Analyzer 0 % (0-5); Neutrophil # 6.91 X10^3/uL (2.7-7.7); Neutrophil % 73.8 % (47-70); Platelet Count 256 K/mm3 (150-450); RBC Distribution Width SD 47.8 fl (35.1-43.9); Red Blood Count 3.16 M/mm3 (4.6-6.2); White Blood Count 9.4 K/mm3 (4.4-11.0)
[2019-07-03 07:01] LABS: Anion Gap 6 (5-15); BUN 35 mg/dL (7-18); BUN/Creat Ratio 25.7 RATIO (10-20); Calcium,Total 8.6 mg/dL (8.5-10.1); Chloride 109 mmol/L (98-107); Creatinine, Serum 1.36 mg/dL (0.70-1.30); EST Glomerular Filtration Rate 56 mL/min (>60); Est Glom Filt Rate - Afr Amer 68 mL/min (>60); Estimated Creatinine Clearance 69.15 ml/min; Glucose 170 mg/dL (74-106); Potassium 4.2 mmol/L (3.5-5.1); Sodium Level 137 mmol/L (136-145)
[2019-07-03] MEDS: guaiFENesin 1,200 MG Tablet 1200 MG PO ×2 (08:10→21:17)
[2019-07-03] MEDS: hydrALAZINE 50 MG Tablet PO ×2 (08:10→21:15)
[2019-07-03] MEDS: amLODIPine 5 MG Tablet PO (08:10)
[2019-07-03] MEDS: Iron Polysaccharide Complex 150 MG CAPSULE PO (08:11)
[2019-07-03] MEDS: Metoprolol(XL)Succ 50 MG Tablet PO (08:11)
[2019-07-03] MEDS: Ascorbic Acid 500 MG Tablet PO (08:11)
[2019-07-03] MEDS: Lisinopril 10 MG Tablet PO (08:11)
[2019-07-03 08:46] LABS: Bedside Glucose 168 mg/dL (70-110)
--- NOTE | 2019-07-03 10:36 | PCM.PROGNOTE ---
Patient Problems: Active and Suspected Problems Diabetic foot infection (Acute) Subjective: This 64-year-old male was seen today postoperative day #2 left foot widespread incision and drainage with debridement. His foot pain is controlled. He denies fever, chill, nausea, vomiting, shortness of breath, chest pain, calf pain. He is elevating his leg. He relates he is frustrated with his recurrent infections and wounds on his leg and is ready to proceed forward with an amputation in outpatient setting. - Physical Exam Vitals/I&O's: Vital Signs Temp Pulse Resp BP Pulse Ox 98.3 F 82 18 171/66 H 94 07/03/19 08:01 07/03/19 08:11 07/03/19 08:01 07/03/19 08:01 07/03/19 08:01 Oxygen Delivery Method Room Air Weight: 191.779 kg Body Mass Index (BMI) 50.1 Finger Stick Blood Glucose 222 Intake and Output for Last 24 Hours 07/01/19 07/02/19 07/03/19 23:59 23:59 23:59 Intake Total 1960.00 / 1960.00 2909.75 / 3709.75 2430 / 2430 Output Total 4350 / 4350 2670 / 3870 2300 / 2300 Balance -2390.00 / -2390.00 239.75 / -160.25 130 / 130 General: Alert, Oriented x3, Cooperative HEENT: Atraumatic, PERRLA, EOMI, Normocephalic Extremities: No cyanosis, Capillary Refill Less than 3 Seconds, No Calf Tenderness - Negative Keara and Simmons sign bilateral, Diminished Peripheral Pulses, Edema Skin: Ulcer/ Wound - Large plantar left foot ulcer site now status post drainage with widespread debridement has granular base with some fibrous tissue. There is no longer any necrotized devitalized tissue with odor. His erythema edema and streaking have resolved. There is no purulence on expression Musculoskeletal: No Tenderness to Palpation of Joints or Extremities, Muscle Wasting, - - Transmetatarsal amputation left. Compartments are soft to palpate Lymphatic: - Neurological: - - Lack of epicritic sensation light touch is consistent with neuropathy status Psych/Mental Status: Normal Affect, Appropriate Microbiology Past 72 Hours 07/01/19 14:58 Other - Other Gram Stain - Final 07/01/19 14:58 Other - Other Wound Culture - Preliminary No growth-Final to follow 07/01/19 14:58 Other - Other Anaerobic Culture - Preliminary No growth in 48 hours. 07/02/19 13:54 Stool C. difficile DNA Amplification - Final 06/29/19 13:22 Blood Culture (Wb) - Left Hand Blood Culture - Preliminary No growth in 48 hours. 06/29/19 12:28 Blood Culture (Wb) - Anticubital Right Blood Culture - Preliminary No growth in 48 hours. Laboratory Results 07/02/19 11:21: POC Glucose 128 H 07/02/19 16:21: POC Glucose 137 H 07/02/19 20:44: POC Glucose 178 H 07/03/19 01:15: Vancomycin Trough 19.7 H 07/03/19 06:15: WBC 9.4, RBC 3.16 L, Hgb 8.4 L, Hct 27.3 L, MCV 86.4, MCH 26.6 L, MCHC 30.8 L, RDW Std Deviation 47.8 H, RDW Coeff of Pool 15.0 H, Plt Count 256, MPV 10.0, Immature Gran % (Auto) 1.000 H, Neut % (Auto) 73.8 H, Lymph % (Auto) 11.8 L, Sherman % (Auto) 9.2, Eos % (Auto) 3.8, Baso % (Auto) 0.4, Absolute Neuts (auto) 6.9, Absolute Lymphs (auto) 1.11, Nucleated RBC % 0 07/03/19 06:15: Sodium 137, Potassium 4.2, Chloride 109 H, Carbon Dioxide 22.0, Anion Gap 6, BUN 35 H, Creatinine 1.36 H, Estim Creat Clear Calc 69.15, Est GFR (MDRD) Af Amer 68, Est GFR (MDRD) Non-Af 56 L, BUN/Creatinine Ratio 25.7 H, Glucose 170 H, Calcium 8.6 07/03/19 08:07: POC Glucose 168 H Current Medications Acetaminophen (Tylenol) 650 mg PO Q6H PRN PRN PRN Reason: Pain Score 1-10/Temp > 100.7 F Last Admin: 07/02/19 23:20 Dose: 650 mg Documented by: Hydrocodone Bitart/Acetaminophen (Clarks 5mg-325mg) 1 tablet PO Q6H PRN PRN PRN Reason: Pain Score 6-10/10 Amlodipine Besylate (Norvasc) 10 mg PO DAILY [facility] Ascorbic Acid (Vitamin C) 500 mg PO DAILY@0800 [facility] Last Admin: 07/03/19 08:11 Dose: 500 mg Documented by: Glucagon () 1 mg IM .X1 PRN PRN Reason: Hypoglycemia Guaifenesin (Mucinex) 1,200 mg PO BID [facility] Last Admin: 07/03/19 08:10 Dose: 1,200 mg Documented by: Hydralazine HCl (Apresoline) 50 mg PO BID [facility] Last Admin: 07/03/19 08:10 Dose: 50 mg Documented by: Dextrose (Dextrose 10%-Water) 250 mls @ 999 mls/hr IV .Q16M PRN; Protocol PRN Reason: HYPOGLYCEMIA Vancomycin IV Pharmacy to Dose (1 ea/ Sodium Chloride) 500 mls @ 250 mls/hr IV PRN PRN; Protocol PRN Reason: Rx to Dose Sodium Chloride () 250 mls @ 15 mls/hr IV .[id number] PRN PRN Reason: Saline Flush Last Infusion: 07/02/19 09:35 Dose: 0 mls/hr Documented by: Sodium Chloride () 250 mls @ 15 mls/hr IV .[id number] PRN PRN Reason: Additional IVPB Infusion Cefepime HCl 2 gm/ Sodium (Chloride) 100 mls @ 200 mls/hr IV Q8 [facility] Last Infusion: 07/03/19 07:10 Dose: Infused Documented by: Vancomycin HCl 1,250 mg/ (Sodium Chloride) 275 mls @ 167 mls/hr IV Q24H [facility] Insulin Human Lispro (Humalog Kwikpen (Bkc)) 0 unit SC ACHS [facility]; Protocol Last Admin: 07/03/19 08:08 Dose: Not Given Documented by: Insulin Human Lispro (Humalog Kwikpen (Bkc)) 30 unit SC 0800,1200,1700 [facility] Last Admin: 07/03/19 08:09 Dose: Not Given Documented by: Insulin Human NPH (Humulin N (Bkc)) 40 units SC QHS [facility] Lactobacillus Acidophilus (Acidophilus) 1 tablet PO BID [facility] Last Admin: 07/03/19 08:47 Dose: 1 tablet Documented by: Lisinopril (Zestril) 10 mg PO DAILY [facility] Last Admin: 07/03/19 08:11 Dose: 10 mg Documented by: Loperamide HCl (Imodium) 2 mg PO Q4H PRN PRN PRN Reason: Diarrhea Metoprolol Succinate (Toprol Xl (Beta Marshall)) 50 mg PO DAILY [facility] Last Admin: 07/03/19 08:11 Dose: 50 mg Documented by: Metronidazole (Flagyl) 500 mg PO TID [facility] Last Admin: 07/03/19 06:24 Dose: 500 mg Documented by: Morphine Sulfate () 2 mg IV Q3H PRN PRN PRN Reason: Pain Score 6-10/10 Nutritional Formula ([facility] - Weare Fl[facility]) [facility] Last Admin: 07/03/19 08:10 Dose: 1 packet Documented by: Nystatin (Mycostatin Powder) 1 applic TOPICAL TID [facility]; Protocol Last Admin: 07/03/19 06:24 Dose: Not Given Documented by: Ondansetron HCl (Zofran) 4 mg IV Q8H PRN PRN PRN Reason: NAUSEA/VOMITING Polysaccharide Iron Complex (Ferrex 150) [facility] Last Admin: 07/03/19 08:11 Dose: 150 mg Documented by: Senna/Docusate Sodium (Senokot-S, Susy-Colace) 2 tablet PO BID PRN PRN PRN Reason: Constipation Sodium Chloride () 10 - 40 ml IV UD PRN PRN Reason: SALINE FLUSH Last Admin: 07/02/19 02:09 Dose: 10 ml Documented by: Medical Necessity - Tobacco Use Smoking Status: Never smoker Assessment/Plan All Active Problems Diabetic foot infection (Acute) Status post day 2 left foot widespread incision with debridement of necrotic muscle with bone biopsy of fifth metatarsal secondary to left foot infection with chronic ulceration and concern of deep abscess Right foot ulcer stable Osteomyelitis 5th metatarsal is suspected Diabetes with neuropathy Peripheral vascular disease Chronic kidney disease with acute kidney injury Obesity Debilitation Other comorbidities I discussed his case and treatment plan. A new dressing was applied. This significantly stabilizing. The patient is not amendable to proceed forward with the wound VAC. Infectious disease consultation is greatly appreciated. His erythema and odor has completely resolved. He is now afebrile. His blood cultures are negative. The preoperative wound cultures are demonstrating E. coli, Pseudomonas, corynebacterium stratum, Staphylococcus species growth. The intraoperative fifth metatarsal bone biopsies that were sent to microbiology and pathology are pending and negative so far. He is on cefepime, vancomycin, flagyl. Infectious disease management until definitive surgical treatment is performed is appreciated. Nonweightbearing weightbearing he was advised to continue strict elevation of the involved limb and continued offloading. To elevate the left surgical limb with a wedge. Discharge will be considered after continued stability is confirmed with his foot which is noted at this time. He will continue to work with PT and OT to help guide his discharge safety status. We discussed the long-term management of his limb salvage ability and he would like to proceed with considering a proximal leg amputation such as a potential below knee amputation. A referral will be provided in the outpatient setting to see if he is an appropriate candidate. It is noted he has had recurrent high frequency of ulcers with delayed healing and infections resulting in continued systemic illness as well. We discussed the benefits and complications associated with moving forward with a more proximal amputation. He understands that there are risks and complications including continued infection and nonhealing. He understands his leg swelling and lymphedema condition may complicate even an amputation of the leg. He has had previous arterial screenings and even had an arteriogram performed by Dr. Peng in January 2018. At this time there was no perfusion deficits noted and intervention is not recommended. Around the same timeframe, he did undergo greater saphenous vein intervention on the left lower extremity. He continues to follow with Dr. Peng, vascular specialist. The goal would be to prevent recurrent infections and demanding home care and to ultimately improve his functionality and daily quality of life. He will continue with wound care to his stable right foot ulcer sites and compression management as well. Medical management and DVT prophylaxis per primary hospitalist team is appreciated. Is also noted he is currently managed for diarrhea. Cultures result demonstrate he is C. difficile negative. I will follow him close while in house. After discharge, he can follow-up with the wound healing center. Gemini Hernández DPM, [facility] [phone]
--- NOTE | 2019-07-03 10:54 | PCM.PN.HOSP ---
<Quintin Polanco - Last Filed: 07/03/19 10:54> Patient Problems: Active and Suspected Problems Diabetic foot infection (Acute) Reason for Visit: LLE nonhealing wound Subjective: Ongoing diarrhea. No C diff. No fever/chills/sob/cough. Pain in LLE improved. Vitals/I&O's: Vital Signs Temp Pulse Resp BP Pulse Ox 98.3 F 82 18 171/66 H 94 07/03/19 08:01 07/03/19 08:11 07/03/19 08:01 07/03/19 08:01 07/03/19 08:01 Oxygen Delivery Method Room Air Weight: 422 lb 12.8 oz Body Mass Index (BMI) 50.1 Finger Stick Blood Glucose 222 Intake and Output for Last 24 Hours 07/01/19 07/02/19 07/03/19 23:59 23:59 23:59 Intake Total 1960.00 / 1960.00 2909.75 / 3709.75 2430 / 2430 Output Total 4350 / 4350 2670 / 3870 2300 / 2300 Balance -2390.00 / -2390.00 239.75 / -160.25 130 / 130 General: Alert, Oriented x3, Cooperative HEENT: Atraumatic, PERRLA, EOMI, Normocephalic Neck: Supple, No JVD, Negative Carotid Bruits Lungs: Clear to auscultation, Normal air movement Cardiovascular: Regular rate, No murmurs Abdomen: Bowel Sounds Present, Soft, Non Tender, Obese Extremities: No edema, Capillary Refill Less than 3 Seconds Skin: No rashes, No breakdown Musculoskeletal: No Tenderness to Palpation of Joints or Extremities Neurological: Cranial nerves II-XII grossly intact Psych/Mental Status: Normal Affect, Appropriate, Alert and oriented to time, place, person, mood and affect Microbiology Past 72 Hours 07/01/19 14:58 Other - Other Gram Stain - Final 07/01/19 14:58 Other - Other Wound Culture - Preliminary No growth-Final to follow 07/01/19 14:58 Other - Other Anaerobic Culture - Preliminary No growth in 48 hours. 07/02/19 13:54 Stool C. difficile DNA Amplification - Final 06/29/19 13:22 Blood Culture (Wb) - Left Hand Blood Culture - Preliminary No growth in 48 hours. 06/29/19 12:28 Blood Culture (Wb) - Anticubital Right Blood Culture - Preliminary No growth in 48 hours. Laboratory Results 07/02/19 11:21: POC Glucose 128 H 07/02/19 16:21: POC Glucose 137 H 07/02/19 20:44: POC Glucose 178 H 07/03/19 01:15: Vancomycin Trough 19.7 H 07/03/19 06:15: WBC 9.4, RBC 3.16 L, Hgb 8.4 L, Hct 27.3 L, MCV 86.4, MCH 26.6 L, MCHC 30.8 L, RDW Std Deviation 47.8 H, RDW Coeff of Pool 15.0 H, Plt Count 256, MPV 10.0, Immature Gran % (Auto) 1.000 H, Neut % (Auto) 73.8 H, Lymph % (Auto) 11.8 L, [place] % (Auto) 9.2, Eos % (Auto) 3.8, Baso % (Auto) 0.4, Absolute Neuts (auto) 6.9, Absolute Lymphs (auto) 1.11, Nucleated RBC % 0 07/03/19 06:15: Sodium 137, Potassium 4.2, Chloride 109 H, Carbon Dioxide 22.0, Anion Gap 6, BUN 35 H, Creatinine 1.36 H, Estim Creat Clear Calc 69.15, Est GFR (MDRD) Af Amer 68, Est GFR (MDRD) Non-Af 56 L, BUN/Creatinine Ratio 25.7 H, Glucose 170 H, Calcium 8.6 07/03/19 08:07: POC Glucose 168 H Current Medications Acetaminophen (Tylenol) 650 mg PO Q6H PRN PRN PRN Reason: Pain Score 1-10/Temp > 100.7 F Last Admin: 07/02/19 23:20 Dose: 650 mg Documented by: Hydrocodone Bitart/Acetaminophen ([place] 5mg-325mg) 1 tablet PO Q6H PRN PRN PRN Reason: Pain Score 6-10/10 Amlodipine Besylate (Norvasc) 10 mg PO DAILY [facility] Ascorbic Acid (Vitamin C) 500 mg PO DAILY@0800 [facility] Last Admin: 07/03/19 08:11 Dose: 500 mg Documented by: Glucagon () 1 mg IM .X1 PRN PRN Reason: Hypoglycemia Guaifenesin (Mucinex) 1,200 mg PO BID [facility] Last Admin: 07/03/19 08:10 Dose: 1,200 mg Documented by: Hydralazine HCl (Apresoline) 50 mg PO BID [facility] Last Admin: 07/03/19 08:10 Dose: 50 mg Documented by: Dextrose (Dextrose 10%-Water) 250 mls @ 999 mls/hr IV .Q16M PRN; Protocol PRN Reason: HYPOGLYCEMIA Vancomycin IV Pharmacy to Dose (1 ea/ Sodium Chloride) 500 mls @ 250 mls/hr IV PRN PRN; Protocol PRN Reason: Rx to Dose Sodium Chloride () 250 mls @ 15 mls/hr IV .[id number] PRN PRN Reason: Saline Flush Last Infusion: 07/02/19 09:35 Dose: 0 mls/hr Documented by: Sodium Chloride () 250 mls @ 15 mls/hr IV .[id number] PRN PRN Reason: Additional IVPB Infusion Cefepime HCl 2 gm/ Sodium (Chloride) 100 mls @ 200 mls/hr IV Q8 [facility] Last Infusion: 07/03/19 07:10 Dose: Infused Documented by: Vancomycin HCl 1,250 mg/ (Sodium Chloride) 275 mls @ 167 mls/hr IV Q24H [facility] Insulin Human Lispro (Humalog Kwikpen (Bkc)) 0 unit SC ACHS [facility]; Protocol Last Admin: 07/03/19 08:08 Dose: Not Given Documented by: Insulin Human Lispro (Humalog Kwikpen (Bkc)) 30 unit SC 0800,1200,1700 [facility] Last Admin: 07/03/19 08:09 Dose: Not Given Documented by: Insulin Human NPH (Humulin N (Bkc)) 40 units SC QHS [facility] Lactobacillus Acidophilus (Acidophilus) 1 tablet PO BID [facility] Last Admin: 07/03/19 08:47 Dose: 1 tablet Documented by: Lisinopril (Zestril) 10 mg PO DAILY [facility] Last Admin: 07/03/19 08:11 Dose: 10 mg Documented by: Loperamide HCl (Imodium) 2 mg PO Q4H PRN PRN PRN Reason: Diarrhea Metoprolol Succinate (Toprol Xl (Beta Marshall)) 50 mg PO DAILY [facility] Last Admin: 07/03/19 08:11 Dose: 50 mg Documented by: Metronidazole (Flagyl) 500 mg PO TID [facility] Last Admin: 07/03/19 06:24 Dose: 500 mg Documented by: Morphine Sulfate () 2 mg IV Q3H PRN PRN PRN Reason: Pain Score 6-10/10 Nutritional Formula (Vu - [place] Fl[facility]) [facility] Last Admin: 07/03/19 08:10 Dose: 1 packet Documented by: Nystatin (Mycostatin Powder) 1 applic TOPICAL TID [facility]; Protocol Last Admin: 07/03/19 06:24 Dose: Not Given Documented by: Ondansetron HCl (Zofran) 4 mg IV Q8H PRN PRN PRN Reason: NAUSEA/VOMITING Polysaccharide Iron Complex (Ferrex 150) [facility] Last Admin: 07/03/19 08:11 Dose: 150 mg Documented by: Senna/Docusate Sodium (Senokot-S, Susy-Colace) 2 tablet PO BID PRN PRN PRN Reason: Constipation Sodium Chloride () 10 - 40 ml IV UD PRN PRN Reason: SALINE FLUSH Last Admin: 07/02/19 02:09 Dose: 10 ml Documented by: STROKE Vital Signs/Narrative: Vital Signs Temp Pulse Resp BP Pulse Ox 07/03/19 08:11 82 07/03/19 08:10 82 07/03/19 08:01 98.3 F 82 18 171/66 H 94 07/03/19 07:45 90 Medical Necessity - Tobacco Use Smoking Status: Never smoker Assessment/Plan All Active Problems Diabetic foot infection (Acute) 1. Osteomyelitis LLE - ID and Podiatry following. s/p I&D. May need amputation. Continue Vanc/Cefepime/Flagyl. Blood cultures pending. No fever/leukocytosis. Blood cx negative. Surgical cx pending. 2. JOANNA on CKDIII - continues to improve off IVF. 3. T2DM with morbid obesity - SSI, novolin n qd, novolin r tid. A1C 8.2. 4. Anemia with iron deficiency - stable. tsh normal, dec iron and iron sat. continue po iron. Recheck AM CBC. 5. Lymphedema - daily CHUCK wraps. 6. HTN - stable 7. New onset diarrhea - likely abx side effect. No C diff. provide probiotic and immodium prn. DVT ppx: heparin DC planning: SNF vs HHC, PTOT This patient was seen by Quintin Polanco PA-C under the supervision of Dr. Rolle <SariahLonia Elena - Last Filed: 07/03/19 12:15> Vitals/I&O's: Vital Signs Temp Pulse Resp BP Pulse Ox 98.3 F 82 18 171/66 H 94 07/03/19 08:01 07/03/19 08:11 07/03/19 08:01 07/03/19 08:01 07/03/19 08:01 Oxygen Delivery Method Room Air Weight: 422 lb 12.8 oz Body Mass Index (BMI) 50.1 Finger Stick Blood Glucose 222 Intake and Output for Last 24 Hours 07/01/19 07/02/19 07/03/19 23:59 23:59 23:59 Intake Total 1960.00 / 1960.00 2909.75 / 3709.75 2830 / 2830 Output Total 4350 / 4350 2670 / 3870 3450 / 3450 Balance -2390.00 / -2390.00 239.75 / -160.25 -620 / -620 Microbiology Past 72 Hours 07/01/19 14:58 Other - Other Gram Stain - Final 07/01/19 14:58 Other - Other Wound Culture - Preliminary No growth-Final to follow 07/01/19 14:58 Other - Other Anaerobic Culture - Preliminary No growth in 48 hours. 07/02/19 13:54 Stool C. difficile DNA Amplification - Final 06/29/19 13:22 Blood Culture (Wb) - Left Hand Blood Culture - Preliminary No growth in 48 hours. 06/29/19 12:28 Blood Culture (Wb) - Anticubital Right Blood Culture - Preliminary No growth in 48 hours. Laboratory Results 07/02/19 16:21: POC Glucose 137 H 07/02/19 20:44: POC Glucose 178 H 07/03/19 01:15: Vancomycin Trough 19.7 H 07/03/19 06:15: WBC 9.4, RBC 3.16 L, Hgb 8.4 L, Hct 27.3 L, MCV 86.4, MCH 26.6 L, MCHC 30.8 L, RDW Std Deviation 47.8 H, RDW Coeff of Pool 15.0 H, Plt Count 256, MPV 10.0, Immature Gran % (Auto) 1.000 H, Neut % (Auto) 73.8 H, Lymph % (Auto) 11.8 L, [place] % (Auto) 9.2, Eos % (Auto) 3.8, Baso % (Auto) 0.4, Absolute Neuts (auto) 6.9, Absolute Lymphs (auto) 1.11, Nucleated RBC % 0 07/03/19 06:15: Sodium 137, Potassium 4.2, Chloride 109 H, Carbon Dioxide 22.0, Anion Gap 6, BUN 35 H, Creatinine 1.36 H, Estim Creat Clear Calc 69.15, Est GFR (MDRD) Af Amer 68, Est GFR (MDRD) Non-Af 56 L, BUN/Creatinine Ratio 25.7 H, Glucose 170 H, Calcium 8.6 07/03/19 08:07: POC Glucose 168 H 07/03/19 11:28: POC Glucose 200 H Current Medications Acetaminophen (Tylenol) 650 mg PO Q6H PRN PRN PRN Reason: Pain Score 1-10/Temp > 100.7 F Last Admin: 07/02/19 23:20 Dose: 650 mg Documented by: Hydrocodone Bitart/Acetaminophen ([place] 5mg-325mg) 1 tablet PO Q6H PRN PRN PRN Reason: Pain Score 6-10/10 Amlodipine Besylate (Norvasc) 10 mg PO DAILY [facility] Last Admin: 07/03/19 11:29 Dose: 10 mg Documented by: Ascorbic Acid (Vitamin C) 500 mg PO DAILY@0800 [facility] Last Admin: 07/03/19 08:11 Dose: 500 mg Documented by: Glucagon () 1 mg IM .X1 PRN PRN Reason: Hypoglycemia Guaifenesin (Mucinex) 1,200 mg PO BID [facility] Last Admin: 07/03/19 08:10 Dose: 1,200 mg Documented by: Hydralazine HCl (Apresoline) 50 mg PO BID [facility] Last Admin: 07/03/19 08:10 Dose: 50 mg Documented by: Dextrose (Dextrose 10%-Water) 250 mls @ 999 mls/hr IV .Q16M PRN; Protocol PRN Reason: HYPOGLYCEMIA Vancomycin IV Pharmacy to Dose (1 ea/ Sodium Chloride) 500 mls @ 250 mls/hr IV PRN PRN; Protocol PRN Reason: Rx to Dose Sodium Chloride () 250 mls @ 15 mls/hr IV .[id number] PRN PRN Reason: Saline Flush Last Infusion: 07/02/19 09:35 Dose: 0 mls/hr Documented by: Sodium Chloride () 250 mls @ 15 mls/hr IV .[id number] PRN PRN Reason: Additional IVPB Infusion Cefepime HCl 2 gm/ Sodium (Chloride) 100 mls @ 200 mls/hr IV Q8 [facility] Last Infusion: 07/03/19 07:10 Dose: Infused Documented by: Vancomycin HCl 1,250 mg/ (Sodium Chloride) 275 mls @ 167 mls/hr IV Q24H [facility] Insulin Human Lispro (Humalog Kwikpen (Bkc)) 0 unit SC ACHS [facility]; Protocol Last Admin: 07/03/19 11:30 Dose: 2 unit Documented by: Insulin Human Lispro (Humalog Kwikpen (Bkc)) 30 unit SC 0800,1200,1700 [facility] Last Admin: 07/03/19 11:30 Dose: 30 units Documented by: Insulin Human NPH (Humulin N (Bk)) 40 units SC QHS [facility] Lactobacillus Acidophilus (Acidophilus) 1 tablet PO BID [facility] Last Admin: 07/03/19 08:47 Dose: 1 tablet Documented by: Lisinopril (Zestril) 10 mg PO DAILY [facility] Last Admin: 07/03/19 08:11 Dose: 10 mg Documented by: Loperamide HCl (Imodium) 2 mg PO Q4H PRN PRN PRN Reason: Diarrhea Metoprolol Succinate (Toprol Xl (Beta Marshall)) 50 mg PO DAILY [facility] Last Admin: 07/03/19 08:11 Dose: 50 mg Documented by: Metronidazole (Flagyl) 500 mg PO TID [facility] Last Admin: 07/03/19 06:24 Dose: 500 mg Documented by: Morphine Sulfate () 2 mg IV Q3H PRN PRN PRN Reason: Pain Score 6-10/10 Nutritional Formula (Vu - [place] Flavor) [facility] Last Admin: 07/03/19 08:10 Dose: 1 packet Documented by: Nystatin (Mycostatin Powder) 1 applic TOPICAL TID [facility]; Protocol Last Admin: 07/03/19 06:24 Dose: Not Given Documented by: Ondansetron HCl (Zofran) 4 mg IV Q8H PRN PRN PRN Reason: NAUSEA/VOMITING Polysaccharide Iron Complex (Ferrex 150) 150 mg PO DAILYCM [facility]IM Last Admin: 07/03/19 08:11 Dose: 150 mg Documented by: Senna/Docusate Sodium (Senokot-S, Susy-Colace) 2 tablet PO BID PRN PRN PRN Reason: Constipation Sodium Chloride () 10 - 40 ml IV UD PRN PRN Reason: SALINE FLUSH Last Admin: 07/02/19 02:09 Dose: 10 ml Documented by: STROKE Vital Signs/Narrative: Vital Signs Pulse 07/03/19 08:11 82 07/03/19 08:10 82 Assessment/Plan Patient seen by Quintin Polanco under my supervision Patient seen and examined. He complains of diarrhea today. Review of systems otherwise negative. Labs and vitals reviewed. o/e: Vital Signs Temp Pulse Resp BP Pulse Ox 98.3 F 82 18 171/66 H 94 07/03/19 08:01 07/03/19 08:11 07/03/19 08:01 07/03/19 08:01 07/03/19 08:01 General: Alert, Oriented x3, Cooperative HEENT: Atraumatic, PERRLA, EOMI, Normocephalic Neck: Supple, No JVD, Negative Carotid Bruits Lungs: Clear to auscultation, Normal air movement Cardiovascular: Regular rate, No murmurs Abdomen: Bowel Sounds Present, Soft, Non Tender, Obese Extremities: both LEs wrapped in bandage; Skin: No rashes, No breakdown Musculoskeletal: No Tenderness to Palpation of Joints or Extremities Neurological: Cranial nerves II-XII grossly intact Psych/Mental Status: Normal Affect, Appropriate, Alert and oriented to time, place, person, mood and affect Today's postop day 2. On IV vancomycin, Flagyl and cefepime. Bone biopsy culture pending. C. difficile screen is negative. Will await results to decide which oral antibiotics he will go home with. ID and podiatry on board. Patient wishes to have left foot below-knee amputation. We will follow-up with podiatry about this on outpatient basis so he can be referred as needed. PT OT on board. For likely DC home with home health care tomorrow once stability is confirmed with his foot, per podiatry. Rest as per Quintin Polanco PA-C's note which I reviewed and endorsed. Inpatient E&M: [id number] Subs Hosp L2
[2019-07-03] MEDS: amLODIPine 10 MG Tablet PO (11:29)
[2019-07-03] MEDS: Insulin Lispro 100 UNIT/ML INSULN.PEN 30 UNIT SC (11:30)
[2019-07-03] MEDS: Insulin Lispro 100 UNIT/ML INSULN.PEN SC (11:30)
[2019-07-03 11:51] LABS: Bedside Glucose 200 mg/dL (70-110)
[2019-07-03] MEDS: Nystatin Powder 15gm Bottle 1 APPLIC TOPICAL ×2 (15:04→21:17)
[2019-07-03 16:56] LABS: Bedside Glucose 103 mg/dL (70-110)
[2019-07-03] MEDS: Acetaminophen 325 MG Tablet 650 MG PO (21:14)
[2019-07-03] MEDS: 0.9% Saline Lock 10 ML Syringe IV (21:18)
[2019-07-03 23:31] LABS: Bedside Glucose 145 mg/dL (70-110)
[2019-07-04] VITALS (7 sets, daily range): BP systolic 160–164; BP diastolic 47–57; PULSE 70–77; RESP 16–18; TEMP 36.6–37.2; O2SAT 92–94
[2019-07-04] MEDS: Acetaminophen 325 MG Tablet 650 MG PO ×2 (05:29→20:34)
[2019-07-04] MEDS: metroNIDAZOLE 500 MG Tablet PO ×3 (05:32→22:57)
[2019-07-04] MEDS: Nystatin Powder 15gm Bottle 1 APPLIC TOPICAL ×2 (05:32→23:01)
[2019-07-04 05:49] LABS: Absolute Lymphocyte Count 1.26 X10^3/uL (0.83-4.51); Absolute Neutrophil Count 6.9 X10^3/uL (2.0-7.7); Basophil# 0.04 X10^3/uL; Basophil% 0.4 % (0-1); Eosinophil# 0.42 X10^3/uL; Eosinophils% 4.3 % (0-5); Hematocrit 28.2 % (40-54); Hemoglobin 8.7 g/dL (13.0-16.5); Lymphocyte # 1.26 X10^3/ul (4.0); Mean Corp Hgb Conc 30.9 g/dL (32-36); Mean Corpuscular Hgb 25.7 pg (27.0-32.0); Mean Corpuscular Volume 83.4 fL (80-94); Mean Platelet Vol. 9.9 fl (6.2-12.0); Monocyte% 9.3 % (0-10); NRBC Flagged by Analyzer 0 % (0-5); Neutrophil # 6.94 X10^3/uL (2.7-7.7); Neutrophil % 71.5 % (47-70); Platelet Count 285 K/mm3 (150-450); RBC Distribution Width CV 15.1 % (11.6-14.6); RBC Distribution Width SD 45.5 fl (35.1-43.9); Red Blood Count 3.38 M/mm3 (4.6-6.2); White Blood Count 9.7 K/mm3 (4.4-11.0)
[2019-07-04 05:54] LABS: Anion Gap 8 (5-15); BUN 30 mg/dL (7-18); BUN/Creat Ratio 24.6 RATIO (10-20); Calcium,Total 8.8 mg/dL (8.5-10.1); Chloride 107 mmol/L (98-107); Creatinine, Serum 1.22 mg/dL (0.70-1.30); EST Glomerular Filtration Rate 64 mL/min (>60); Est Glom Filt Rate - Afr Amer 77 mL/min (>60); Estimated Creatinine Clearance 77.09 ml/min; Glucose 163 mg/dL (74-106); Potassium 3.9 mmol/L (3.5-5.1); Sodium Level 137 mmol/L (136-145)
[2019-07-04] MEDS: 0.9% Saline Lock 10 ML Syringe IV ×3 (06:58→23:01)
[2019-07-04 07:11] LABS: Bedside Glucose 161 mg/dL (70-110)
--- NOTE | 2019-07-04 07:40 | PCM.PROGNOTE ---
Patient Problems: Active and Suspected Problems Diabetic foot infection (Acute) Subjective: This 64-year-old male with multiple comorbidities was seen bedside this morning status post day #3 left foot widespread debridement with drainage and bone biopsy of the fifth metatarsal. He rates his pain at worst as a 3 out of 10 and is pretty asymptomatic while lying in bed. He denies fever, chill, nausea, vomiting, diarrhea, calf pain, shortness of breath or chest pain. He would like to proceed forward with below knee amputation work up in outpatient setting as previously discussed. - Physical Exam Vitals/I&O's: Vital Signs Temp Pulse Resp BP Pulse Ox 98 F 70 16 164/53 H 93 07/04/19 02:37 07/04/19 02:55 07/04/19 02:55 07/04/19 02:37 07/04/19 02:55 Oxygen Delivery Method Room Air Weight: 191.779 kg Body Mass Index (BMI) 50.1 Finger Stick Blood Glucose 222 Intake and Output for Last 24 Hours 07/02/19 07/03/19 07/04/19 23:59 23:59 23:59 Intake Total 2909.75 / 3709.75 3730 / 4430 1620.75 / 1620.75 Output Total 2670 / 3870 4150 / 6000 3700 / 3700 Balance 239.75 / -160.25 -420 / -1570 -2079.25 / -2079.25 General: Alert, Oriented x3, Cooperative Extremities: No cyanosis, Capillary Refill Less than 3 Seconds, No Calf Tenderness - Negative [place] and Simmons sign bilateral, Diminished Peripheral Pulses Skin: Ulcer/ Wound - Left lower extremity: No purulence on expression, no odor, no erythema, no streaking, no necrosis or maceration. The widespread debridement and drainage site has improving granulation tissue and some interspersed fibrous tissue. There is no exposed bone. Bone biopsy site is stable with nylon suture intact. Musculoskeletal: No Tenderness to Palpation of Joints or Extremities, Muscle Wasting, - - Compartments soft to palpate left lower extremity. Transmetatarsal amputation left Neurological: - - Lack of normal epicritic sensation light touch to the foot is consistent with his neuropathy status Psych/Mental Status: Normal Affect, Appropriate Microbiology Past 72 Hours 07/01/19 14:58 Other - Other Acid Fast Bacilli Smear - Final 07/01/19 14:58 Other - Other Gram Stain - Final 07/01/19 14:58 Other - Other Wound Culture - Preliminary No growth-Final to follow 07/01/19 14:58 Other - Other Anaerobic Culture - Preliminary No growth in 48 hours. 07/02/19 13:54 Stool C. difficile DNA Amplification - Final 06/29/19 13:22 Blood Culture (Wb) - Left Hand Blood Culture - Preliminary No growth in 48 hours. 06/29/19 12:28 Blood Culture (Wb) - Anticubital Right Blood Culture - Preliminary No growth in 48 hours. Laboratory Results 07/03/19 08:07: POC Glucose 168 H 07/03/19 11:28: POC Glucose 200 H 07/03/19 16:43: POC Glucose 103 07/03/19 21:28: POC Glucose 145 H 07/04/19 05:24: WBC 9.7, RBC 3.38 L, Hgb 8.7 L, Hct 28.2 L, MCV 83.4, MCH 25.7 L, MCHC 30.9 L, RDW Std Deviation 45.5 H, RDW Coeff of Pool 15.1 H, Plt Count 285, MPV 9.9, Immature Gran % (Auto) 1.500 H, Neut % (Auto) 71.5 H, Lymph % (Auto) 13.0 L, [place] % (Auto) 9.3, Eos % (Auto) 4.3, Baso % (Auto) 0.4, Absolute Neuts (auto) 6.9, Absolute Lymphs (auto) 1.26, Nucleated RBC % 0 07/04/19 05:24: Sodium 137, Potassium 3.9, Chloride 107, Carbon Dioxide 22.0, Anion Gap 8, BUN 30 H, Creatinine 1.22, Estim Creat Clear Calc 77.09, Est GFR (MDRD) Af Amer 77, Est GFR (MDRD) Non-Af 64, BUN/Creatinine Ratio 24.6 H, Glucose 163 H, Calcium 8.8 07/04/19 07:02: POC Glucose 161 H Current Medications Acetaminophen (Tylenol) 650 mg PO Q6H PRN PRN PRN Reason: Pain Score 1-10/Temp > 100.7 F Last Admin: 07/04/19 05:29 Dose: 650 mg Documented by: Hydrocodone Bitart/Acetaminophen ([place] 5mg-325mg) 1 tablet PO Q6H PRN PRN PRN Reason: Pain Score 6-10/10 Amlodipine Besylate (Norvasc) 10 mg PO DAILY [facility] Last Admin: 07/03/19 11:29 Dose: 10 mg Documented by: Ascorbic Acid (Vitamin C) 500 mg PO DAILY@0800 [facility] Last Admin: 07/03/19 08:11 Dose: 500 mg Documented by: Glucagon () 1 mg IM .X1 PRN PRN Reason: Hypoglycemia Guaifenesin (Mucinex) 1,200 mg PO BID [facility] Last Admin: 07/03/19 21:17 Dose: 1,200 mg Documented by: Hydralazine HCl (Apresoline) 50 mg PO BID [facility] Last Admin: 07/03/19 21:15 Dose: 50 mg Documented by: Dextrose (Dextrose 10%-Water) 250 mls @ 999 mls/hr IV .Q16M PRN; Protocol PRN Reason: HYPOGLYCEMIA Vancomycin IV Pharmacy to Dose (1 ea/ Sodium Chloride) 500 mls @ 250 mls/hr IV PRN PRN; Protocol PRN Reason: Rx to Dose Sodium Chloride () 250 mls @ 15 mls/hr IV .[id number] PRN PRN Reason: Saline Flush Last Infusion: 07/04/19 06:58 Dose: 0 mls/hr Documented by: Sodium Chloride () 250 mls @ 15 mls/hr IV .[id number] PRN PRN Reason: Additional IVPB Infusion Cefepime HCl 2 gm/ Sodium (Chloride) 100 mls @ 200 mls/hr IV Q8 [facility] Last Infusion: 07/04/19 05:59 Dose: Infused Documented by: Vancomycin HCl 1,250 mg/ (Sodium Chloride) 275 mls @ 167 mls/hr IV Q24H [facility] Last Infusion: 07/04/19 03:55 Dose: Infused Documented by: Insulin Human Lispro (Humalog Kwikpen (Bkc)) 0 unit SC ACHS [facility]; Protocol Last Admin: 07/04/19 07:02 Dose: Not Given Documented by: Insulin Human Lispro (Humalog Kwikpen (Bkc)) 30 unit SC 0800,1200,1700 [facility] Last Admin: 07/03/19 17:56 Dose: Not Given Documented by: Insulin Human NPH (Humulin N (Bkc)) 40 units SC QHS [facility] Last Admin: 07/03/19 21:29 Dose: Not Given Documented by: Lactobacillus Acidophilus (Acidophilus) 1 tablet PO BID [facility] Last Admin: 07/03/19 21:30 Dose: 1 tablet Documented by: Lisinopril (Zestril) 10 mg PO DAILY [facility] Last Admin: 07/03/19 08:11 Dose: 10 mg Documented by: Loperamide HCl (Imodium) 2 mg PO Q4H PRN PRN PRN Reason: Diarrhea Metoprolol Succinate (Toprol Xl (Beta Marshall)) 50 mg PO DAILY [facility] Last Admin: 07/03/19 08:11 Dose: 50 mg Documented by: Metronidazole (Flagyl) 500 mg PO TID [facility] Last Admin: 07/04/19 05:32 Dose: 500 mg Documented by: Morphine Sulfate () 2 mg IV Q3H PRN PRN PRN Reason: Pain Score 6-10/10 Nutritional [facility] ([facility] - [place] [facility]) [facility] Last Admin: 07/03/19 17:56 Dose: Not Given Documented by: Nystatin (Mycostatin Powder) 1 applic TOPICAL TID [facility]; Protocol Last Admin: 07/04/19 05:32 Dose: 1 applicatio Documented by: Ondansetron HCl (Zofran) 4 mg IV Q8H PRN PRN PRN Reason: NAUSEA/VOMITING Polysaccharide Iron Complex (Ferrex 150) [facility] Last Admin: 07/03/19 08:11 Dose: 150 mg Documented by: Senna/Docusate Sodium (Senokot-S, Susy-Colace) 2 tablet PO BID PRN PRN PRN Reason: Constipation Sodium Chloride () 10 - 40 ml IV UD PRN PRN Reason: SALINE FLUSH Last Admin: 07/04/19 06:58 Dose: 10 ml Documented by: Medical Necessity - Tobacco Use Smoking Status: Never smoker Assessment/Plan All Active Problems Diabetic foot infection (Acute) Status post day 3 left foot widespread incision with debridement of necrotic muscle with bone biopsy of fifth metatarsal secondary to left foot infection with chronic ulceration and concern of deep abscess Right foot ulcer stable Osteomyelitis 5th metatarsal is suspected Diabetes with neuropathy Peripheral vascular disease Chronic kidney disease with acute kidney injury Obesity Debilitation Other comorbidities I discussed his case and treatment plan. He is afebrile and his white blood cell count is 9.7. His surgical site and infection continues to stabilize. His erythema and odor has completely resolved. He is now afebrile. His blood cultures are negative. The preoperative wound cultures are demonstrating E. coli, Pseudomonas, corynebacterium stratum, Staphylococcus species, strep, and anaerobic cocci growth. The intraoperative fifth metatarsal bone biopsies that were sent to microbiology and pathology are pending and negative so far. He is on cefepime, vancomycin, flagyl. Infectious disease management until definitive surgical treatment is performed is appreciated. I recommend outpatient referral to Dr. Pompa for below-knee amputation consideration. Prior arterial intervention by vascular specialist, Dr. Peng, was not recommended. He was seen at [facility] for this work-up. It is noted he had previous venous intervention recommended for the left lower extremity however Jair decided not to proceed forward. A new dressing was applied this morning. Nonweightbearing weightbearing he was advised to continue strict elevation of the involved surgical limb and he was advised to continue strict offloading. To elevate the left surgical limb with a wedge. To continue with compression therapy with compression pumps upon return home and also with bilateral foot and leg Mateus wraps. Medical management and DVT prophylaxis per primary hospitalist team is appreciated. It is okay to discharge from a podiatric surgical standpoint once his antibiotic plan is confirmed and he is medically stable which is apparent at this time. I will follow him close while in house. After discharge, he can follow-up with the wound healing center for continued care of right foot ulcers. Gemini Hernández DPM, [facility] [phone]
--- NOTE | 2019-07-04 08:19 | NURSING ---
In to see patient. Pt states that Dr Hernández had already been and changed the dressing. will leave dressing in place since it was just changed. pt denies further needs at this time.
--- NOTE | 2019-07-04 08:38 | DCINST_ITS ---
Discharge Activity: Use Walker Weight Bearing Status: Partial weight bearing - Forefoot weightbearing right lower extremity, No weight bearing - left lower extremity Keep extremity elevated above heart level: Left Leg, Right Leg Call your doctor if your incision/area has: Continuous Slow Oozing, Sudden Increased Bleeding, Increased Pain/ Swelling, Increased Redness, Foul Smelling Discharge, Swelling at the incision site Call your doctor if you observe: Fever of 101 or Higher, Shortness of breath, Calf discomfort, Uncontrolled pain Cleanse incision/area with: Soap & Water, - - Right foot: Aquacell AG and dry gauze and Kerlix secondary dressings Left foot: Betadine soaked gauze packed into foot debridement site and dry gauze, abdominal pads, Kerlix secondary dressings. Bilateral lower extremities: Mateus wrap from foot to proximal legs Allergies/Adverse Reactions: Allergies ciprofloxacin [From Cipro] Allergy (Verified 06/29/19 11:34) Rash he has tolerated oral cipro in the past levofloxacin [From Levaquin] Allergy (Verified 06/29/19 11:34) Hives Penicillins Allergy (Verified 06/29/19 11:34) Hives silver Allergy (Verified 06/29/19 11:34) Rash Skin márquez and itches, rash Medications to take at Discharge Lisinopril [Zestril] 10 mg PO DAILY 06/04/17 Metoprolol(XL)Succ [Toprol Xl (Beta Marshall)] 50 mg PO DAILY 06/04/17 Ascorbic Acid [Vitamin C] 500 mg PO DAILY@0800 05/02/19 Amlodipine [Norvasc] 5 mg PO DAILY #0 05/05/19 Furosemide 40 mg PO DAILY #0 05/05/19 Insulin Regular, Human [Novolin R] 30 unit SQ TID #0 05/05/19 Guaifenesin [Mucinex] 600 mg PO BID 06/29/19 Insulin NPH Human Isophane [Novolin N Flexpen] 40 unit SQ QHS 06/29/19 hydrALAZINE [Apresoline] 50 mg PO BID 06/29/19 Primary Care Physician: Ac Felix MD [Primary Care Provider] - Test Results: Test results from this visit will be discussed in further detail at your follow- up appointment, if applicable. Please Follow Up With: Clinic,Wound - Dr. Fascione When: 1 week Please Follow Up With: Tip Pompa MD When: outpatient office or wound healing center for amputation referral Proposed Discharge Date: 07/04/19
[2019-07-04] MEDS: Insulin Lispro 100 UNIT/ML INSULN.PEN 30 UNIT SC (09:07)
[2019-07-04] MEDS: amLODIPine 10 MG Tablet PO (09:08)
[2019-07-04] MEDS: Lisinopril 10 MG Tablet PO (09:09)
[2019-07-04] MEDS: Ascorbic Acid 500 MG Tablet PO (09:09)
[2019-07-04] MEDS: Iron Polysaccharide Complex 150 MG CAPSULE PO (09:09)
[2019-07-04] MEDS: Metoprolol(XL)Succ 50 MG Tablet PO (09:09)
[2019-07-04] MEDS: hydrALAZINE 50 MG Tablet PO ×2 (09:09→20:29)
--- NOTE | 2019-07-04 10:52 | CASEMGMT ---
Addendum entered by Emperatriz Moore 07/04/19 14:20: Dr. Bartlett state pt to be sent home on Vancomycin 1250mg IV every 24hrs and Cefepime 2gms IV every 8 hours at discharge. Pt states no preference on IV infusion company at this time. Referal faxed to [facility] at this time and to [place] [facility] at this time. Dr. Bartlett also placed order for PICC line at this time. Babak BATES CM Original Note: Call from Milana at [facility] and she states that pt is current with nursing for daily dressing changes at this time, but she states that if pt needs IV antibx at discharge that they will not be able to take pt at this time. She states that if no IV antibx needed, they can take pt back but will need a new order. She states that they do not have a working fax machine at this time so just send paperwork with pt if he can stay with them. She states she would also like a call to notify at [phone]. Awaiting ID to see pt for antibx plan. This JANA LOPEZ to room at this time to discuss d/c plan with pt at this time and pt states he would still like to go home at discharge with [facility]. Pt state no preference for [facility] if IV antibx are needed. Pt states no further concerns/needs at this time. Babak BATES CM
[2019-07-04 11:35] LABS: Bedside Glucose 175 mg/dL (70-110)
--- NOTE | 2019-07-04 14:56 | PCM.PN.HOSP ---
<Quintin Polanco - Last Filed: 07/04/19 14:56> Patient Problems: Active and Suspected Problems Diabetic foot infection (Acute) Reason for Visit: Nonhealing LE wound Subjective: Pt had no issues overnight. The diarrhea has resolved. no Abd pain/nausea/vomiting/SOB/cough/fever/chills. Pt plans to go home with HHC and IV abx. Vitals/I&O's: Vital Signs Temp Pulse Resp BP Pulse Ox 98.8 F 77 18 160/54 H 92 07/04/19 13:45 07/04/19 13:45 07/04/19 13:45 07/04/19 13:45 07/04/19 13:45 Oxygen Delivery Method Room Air Weight: 422 lb 12.805 oz Body Mass Index (BMI) 50.1 Finger Stick Blood Glucose 222 Intake and Output for Last 24 Hours 07/02/19 07/03/19 07/04/19 23:59 23:59 23:59 Intake Total 2909.75 / 3709.75 3730 / 4430 2220.75 / 2220.75 Output Total 2670 / 3870 4150 / 6000 4550 / 4550 Balance 239.75 / -160.25 -420 / -1570 -2329.25 / -2329.25 General: Alert, Oriented x3, Cooperative HEENT: Atraumatic, PERRLA, EOMI, Normocephalic Neck: Supple, No JVD, Negative Carotid Bruits Lungs: Clear to auscultation, Normal air movement Cardiovascular: Regular rate, No murmurs Abdomen: Bowel Sounds Present, Soft, Non Tender, Obese Extremities: No edema, Capillary Refill Less than 3 Seconds Skin: No rashes, No breakdown Musculoskeletal: No Tenderness to Palpation of Joints or Extremities Neurological: Cranial nerves II-XII grossly intact Psych/Mental Status: Normal Affect, Appropriate, Alert and oriented to time, place, person, mood and affect Microbiology Past 72 Hours 06/29/19 13:22 Blood Culture (Wb) - Left Hand Blood Culture - Final No growth in 5 days. 06/29/19 12:28 Blood Culture (Wb) - Anticubital Right Blood Culture - Final No growth in 5 days. 07/01/19 14:58 Other - Other Acid Fast Bacilli Smear - Final 07/01/19 14:58 Other - Other Gram Stain - Final 07/01/19 14:58 Other - Other Wound Culture - Preliminary No growth-Final to follow 07/01/19 14:58 Other - Other Anaerobic Culture - Preliminary No growth in 48 hours. 07/02/19 13:54 Stool C. difficile DNA Amplification - Final Laboratory Results 07/03/19 16:43: POC Glucose 103 07/03/19 21:28: POC Glucose 145 H 07/04/19 05:24: WBC 9.7, RBC 3.38 L, Hgb 8.7 L, Hct 28.2 L, MCV 83.4, MCH 25.7 L, MCHC 30.9 L, RDW Std Deviation 45.5 H, RDW Coeff of Pool 15.1 H, Plt Count 285, MPV 9.9, Immature Gran % (Auto) 1.500 H, Neut % (Auto) 71.5 H, Lymph % (Auto) 13.0 L, Cuming % (Auto) 9.3, Eos % (Auto) 4.3, Baso % (Auto) 0.4, Absolute Neuts (auto) 6.9, Absolute Lymphs (auto) 1.26, Nucleated RBC % 0 07/04/19 05:24: Sodium 137, Potassium 3.9, Chloride 107, Carbon Dioxide 22.0, Anion Gap 8, BUN 30 H, Creatinine 1.22, Estim Creat Clear Calc 77.09, Est GFR (MDRD) Af Amer 77, Est GFR (MDRD) Non-Af 64, BUN/Creatinine Ratio 24.6 H, Glucose 163 H, Calcium 8.8 07/04/19 07:02: POC Glucose 161 H 07/04/19 11:21: POC Glucose 175 H Current Medications Acetaminophen (Tylenol) 650 mg PO Q6H PRN PRN PRN Reason: Pain Score 1-10/Temp > 100.7 F Last Admin: 07/04/19 05:29 Dose: 650 mg Documented by: Hydrocodone Bitart/Acetaminophen ([place] 5mg-325mg) 1 tablet PO Q6H PRN PRN PRN Reason: Pain Score 6-10/10 Amlodipine Besylate (Norvasc) 10 mg PO DAILY [facility] Last Admin: 07/04/19 09:08 Dose: 10 mg Documented by: Ascorbic Acid (Vitamin C) 500 mg PO DAILY@0800 [facility] Last Admin: 07/04/19 09:09 Dose: 500 mg Documented by: Glucagon () 1 mg IM .X1 PRN PRN Reason: Hypoglycemia Guaifenesin (Mucinex) 1,200 mg PO BID [facility] Last Admin: 07/04/19 10:54 Dose: Not Given Documented by: Hydralazine HCl (Apresoline) 50 mg PO BID [facility] Last Admin: 07/04/19 09:09 Dose: 50 mg Documented by: Dextrose (Dextrose 10%-Water) 250 mls @ 999 mls/hr IV .Q16M PRN; Protocol PRN Reason: HYPOGLYCEMIA Vancomycin IV Pharmacy to Dose (1 ea/ Sodium Chloride) 500 mls @ 250 mls/hr IV PRN PRN; Protocol PRN Reason: Rx to Dose Sodium Chloride () 250 mls @ 15 mls/hr IV .[id number] PRN PRN Reason: Saline Flush Last Infusion: 07/04/19 06:58 Dose: 0 mls/hr Documented by: Sodium Chloride () 250 mls @ 15 mls/hr IV .[id number] PRN PRN Reason: Additional IVPB Infusion Cefepime HCl 2 gm/ Sodium (Chloride) 100 mls @ 200 mls/hr IV Q8 [facility] Last Admin: 07/04/19 13:40 Dose: 200 mls/hr Documented by: Vancomycin HCl 1,250 mg/ (Sodium Chloride) 275 mls @ 167 mls/hr IV Q24H [facility] Last Infusion: 07/04/19 03:55 Dose: Infused Documented by: Insulin Human Lispro (Humalog Kwikpen (Bkc)) 0 unit SC ACHS [facility]; Protocol Last Admin: 07/04/19 12:02 Dose: Not Given Documented by: Insulin Human Lispro (Humalog Kwikpen (Bkc)) 30 unit SC 0800,1200,1700 [facility] Last Admin: 07/04/19 12:02 Dose: Not Given Documented by: Insulin Human NPH (Humulin N (Bkc)) 40 units SC QHS [facility] Last Admin: 07/03/19 21:29 Dose: Not Given Documented by: Lactobacillus Acidophilus (Acidophilus) 1 tablet PO BID [facility] Last Admin: 07/04/19 09:08 Dose: 1 tablet Documented by: Lisinopril (Zestril) 10 mg PO DAILY [facility] Last Admin: 07/04/19 09:09 Dose: 10 mg Documented by: Loperamide HCl (Imodium) 2 mg PO Q4H PRN PRN PRN Reason: Diarrhea Metoprolol Succinate (Toprol Xl (Beta Marshall)) 50 mg PO DAILY [facility] Last Admin: 07/04/19 09:09 Dose: 50 mg Documented by: Metronidazole (Flagyl) 500 mg PO TID [facility] Last Admin: 07/04/19 13:41 Dose: 500 mg Documented by: Morphine Sulfate () 2 mg IV Q3H PRN PRN PRN Reason: Pain Score 6-10/10 Nutritional Formula ([facility] - [place] Fl[facility]) [facility] Last Admin: 07/04/19 09:08 Dose: 1 packet Documented by: Nystatin (Mycostatin Powder) 1 applic TOPICAL TID [facility]; Protocol Last Admin: 07/04/19 13:40 Dose: Not Given Documented by: Ondansetron HCl (Zofran) 4 mg IV Q8H PRN PRN PRN Reason: NAUSEA/VOMITING Polysaccharide Iron Complex (Ferrex 150) [facility] Last Admin: 07/04/19 09:09 Dose: 150 mg Documented by: Senna/Docusate Sodium (Senokot-S, Susy-Colace) 2 tablet PO BID PRN PRN PRN Reason: Constipation Sodium Chloride () 10 - 40 ml IV UD PRN PRN Reason: SALINE FLUSH Last Admin: 07/04/19 13:43 Dose: 10 ml Documented by: STROKE Vital Signs/Narrative: Vital Signs Temp Pulse Resp BP Pulse Ox 07/04/19 13:45 98.8 F 77 18 160/54 H 92 Medical Necessity - Tobacco Use Smoking Status: Never smoker Assessment/Plan All Active Problems Diabetic foot infection (Acute) 1. Osteomyelitis LLE - ID and Podiatry following. s/p I&D. May need amputation. Continue Vanc/Cefepime/Flagyl. Will complete 6 weeks IV abx. Blood cultures NTD. No fever/leukocytosis. Surgical cx pending. Wound cx on shows E coli, Pseudomonas, MRSA, Corynebacterium, Strep Group A. 2. JOANNA on CKDIII - resolved. 3. T2DM with morbid obesity - SSI, novolin n qd, novolin r tid. A1C 8.2. 4. Anemia with iron deficiency - stable. tsh normal, dec iron and iron sat. continue po iron. 5. Lymphedema - daily CHUCK wraps. 6. HTN - stable 7. New onset diarrhea - likely abx side effect. No C diff. provide probiotic and immodium prn. DVT ppx: heparin DC planning: [facility], needs home abx, health care, and PICC line. Likely home tomorrow. This patient was seen by Quintin Polanco PA-C under the supervision of Dr. Rolle <Jessy Rolle - Last Filed: 07/04/19 16:51> Vitals/I&O's: Vital Signs Temp Pulse Resp BP Pulse Ox 98.8 F 77 18 160/54 H 92 07/04/19 13:45 07/04/19 13:45 07/04/19 13:45 07/04/19 13:45 07/04/19 13:45 Oxygen Delivery Method Room Air Weight: 422 lb 12.805 oz Body Mass Index (BMI) 50.1 Finger Stick Blood Glucose 222 Intake and Output for Last 24 Hours 07/02/19 07/03/19 07/04/19 23:59 23:59 23:59 Intake Total 2909.75 / 3709.75 3730 / 4430 2320.75 / 2320.75 Output Total 2670 / 3870 4150 / 6000 4550 / 4550 Balance 239.75 / -160.25 -420 / -1570 -2229.25 / -2229.25 Microbiology Past 72 Hours 06/29/19 13:22 Blood Culture (Wb) - Left Hand Blood Culture - Final No growth in 5 days. 06/29/19 12:28 Blood Culture (Wb) - Anticubital Right Blood Culture - Final No growth in 5 days. 07/01/19 14:58 Other - Other Acid Fast Bacilli Smear - Final 07/01/19 14:58 Other - Other Gram Stain - Final 07/01/19 14:58 Other - Other Wound Culture - Preliminary No growth-Final to follow 07/01/19 14:58 Other - Other Anaerobic Culture - Preliminary No growth in 48 hours. 07/02/19 13:54 Stool C. difficile DNA Amplification - Final Laboratory Results 07/03/19 16:43: POC Glucose 103 07/03/19 21:28: POC Glucose 145 H 07/04/19 05:24: WBC 9.7, RBC 3.38 L, Hgb 8.7 L, Hct 28.2 L, MCV 83.4, MCH 25.7 L, MCHC 30.9 L, RDW Std Deviation 45.5 H, RDW Coeff of Pool 15.1 H, Plt Count 285, MPV 9.9, Immature Gran % (Auto) 1.500 H, Neut % (Auto) 71.5 H, Lymph % (Auto) 13.0 L, Cuming % (Auto) 9.3, Eos % (Auto) 4.3, Baso % (Auto) 0.4, Absolute Neuts (auto) 6.9, Absolute Lymphs (auto) 1.26, Nucleated RBC % 0 07/04/19 05:24: Sodium 137, Potassium 3.9, Chloride 107, Carbon Dioxide 22.0, Anion Gap 8, BUN 30 H, Creatinine 1.22, Estim Creat Clear Calc 77.09, Est GFR (MDRD) Af Amer 77, Est GFR (MDRD) Non-Af 64, BUN/Creatinine Ratio 24.6 H, Glucose 163 H, Calcium 8.8 07/04/19 07:02: POC Glucose 161 H 07/04/19 11:21: POC Glucose 175 H 07/04/19 16:19: POC Glucose 163 H Current Medications Acetaminophen (Tylenol) 650 mg PO Q6H PRN PRN PRN Reason: Pain Score 1-10/Temp > 100.7 F Last Admin: 07/04/19 05:29 Dose: 650 mg Documented by: Hydrocodone Bitart/Acetaminophen ([place] 5mg-325mg) 1 tablet PO Q6H PRN PRN PRN Reason: Pain Score 6-10/10 Amlodipine Besylate (Norvasc) 10 mg PO DAILY [facility] Last Admin: 07/04/19 09:08 Dose: 10 mg Documented by: Ascorbic Acid (Vitamin C) 500 mg PO DAILY@0800 [facility] Last Admin: 07/04/19 09:09 Dose: 500 mg Documented by: Glucagon () 1 mg IM .X1 PRN PRN Reason: Hypoglycemia Guaifenesin (Mucinex) 1,200 mg PO BID [facility] Last Admin: 07/04/19 10:54 Dose: Not Given Documented by: Hydralazine HCl (Apresoline) 50 mg PO BID [facility] Last Admin: 07/04/19 09:09 Dose: 50 mg Documented by: Dextrose (Dextrose 10%-Water) 250 mls @ 999 mls/hr IV .Q16M PRN; Protocol PRN Reason: HYPOGLYCEMIA Vancomycin IV Pharmacy to Dose (1 ea/ Sodium Chloride) 500 mls @ 250 mls/hr IV PRN PRN; Protocol PRN Reason: Rx to Dose Sodium Chloride () 250 mls @ 15 mls/hr IV .[id number] PRN PRN Reason: Saline Flush Last Infusion: 07/04/19 06:58 Dose: 0 mls/hr Documented by: Sodium Chloride () 250 mls @ 15 mls/hr IV .[id number] PRN PRN Reason: Additional IVPB Infusion Cefepime HCl 2 gm/ Sodium (Chloride) 100 mls @ 200 mls/hr IV Q8 [facility] Last Infusion: 07/04/19 14:10 Dose: Infused Documented by: Vancomycin HCl 1,250 mg/ (Sodium Chloride) 275 mls @ 167 mls/hr IV Q24H [facility] Last Infusion: 07/04/19 03:55 Dose: Infused Documented by: Insulin Human Lispro (Humalog Kwikpen (Bkc)) 0 unit SC ACHS [facility]; Protocol Last Admin: 07/04/19 12:02 Dose: Not Given Documented by: Insulin Human Lispro (Humalog Kwikpen (Bkc)) 30 unit SC 0800,1200,1700 [facility] Last Admin: 07/04/19 12:02 Dose: Not Given Documented by: Insulin Human NPH (Humulin N (Bkc)) 40 units SC QHS [facility] Last Admin: 07/03/19 21:29 Dose: Not Given Documented by: Lactobacillus Acidophilus (Acidophilus) 1 tablet PO BID [facility] Last Admin: 07/04/19 09:08 Dose: 1 tablet Documented by: Lisinopril (Zestril) 10 mg PO DAILY [facility] Last Admin: 07/04/19 09:09 Dose: 10 mg Documented by: Loperamide HCl (Imodium) 2 mg PO Q4H PRN PRN PRN Reason: Diarrhea Metoprolol Succinate (Toprol Xl (Beta Marshall)) 50 mg PO DAILY [facility] Last Admin: 07/04/19 09:09 Dose: 50 mg Documented by: Metronidazole (Flagyl) 500 mg PO TID [facility] Last Admin: 07/04/19 13:41 Dose: 500 mg Documented by: Morphine Sulfate () 2 mg IV Q3H PRN PRN PRN Reason: Pain Score 6-10/10 Nutritional Formula (Vu - Rupert Flavor) [facility] Last Admin: 07/04/19 09:08 Dose: 1 packet Documented by: Nystatin (Mycostatin Powder) 1 applic TOPICAL TID [facility]; Protocol Last Admin: 07/04/19 13:40 Dose: Not Given Documented by: Ondansetron HCl (Zofran) 4 mg IV Q8H PRN PRN PRN Reason: NAUSEA/VOMITING Polysaccharide Iron Complex (Ferrex 150) [facility] Last Admin: 07/04/19 09:09 Dose: 150 mg Documented by: Senna/Docusate Sodium (Senokot-S, Susy-Colace) 2 tablet PO BID PRN PRN PRN Reason: Constipation Sodium Chloride () 10 - 40 ml IV UD PRN PRN Reason: SALINE FLUSH Last Admin: 07/04/19 13:43 Dose: 10 ml Documented by: STROKE Vital Signs/Narrative: Vital Signs Temp Pulse Resp BP Pulse Ox 07/04/19 13:45 98.8 F 77 18 160/54 H 92 Assessment/Plan Patient seen by Quintin Polanco PA-C under my supervision Patient seen and examined today. He had no complaints. Review of symptoms otherwise negative. Labs and vitals reviewed. o/e: Vital Signs Temp Pulse Resp BP Pulse Ox 98.8 F 77 18 160/54 H 92 07/04/19 13:45 07/04/19 13:45 07/04/19 13:45 07/04/19 13:45 07/04/19 13:45 General: Alert, Oriented x3, Cooperative HEENT: Atraumatic, PERRLA, EOMI, Normocephalic Neck: Supple, No JVD, Negative Carotid Bruits Lungs: Clear to auscultation, Normal air movement Cardiovascular: Regular rate, No murmurs Abdomen: Bowel Sounds Present, Soft, Non Tender, Obese Extremities: both LEs wrapped in bandage; Skin: No rashes, No breakdown Musculoskeletal: No Tenderness to Palpation of Joints or Extremities Neurological: Cranial nerves II-XII grossly intact Psych/Mental Status: Normal Affect, Appropriate, Alert and oriented to time, place, person, mood and affect Plan is to continue IV antibiotics-vancomycin, Flagyl and cefepime. Bone cultures are still pending. Patient will need PICC line for IV antibiotics. Will discharge him after PICC line is placed. Rest as per Quintin Polnaco PA-C's notes which I reviewed and endorsed. Inpatient E&M: 32725 Subs Hosp L2
--- NOTE | 2019-07-04 16:14 | PCM.PN.ID ---
Patient Problems: Active and Suspected Problems Diabetic foot infection (Acute) Subjective: Feeling ok, no fever, no n/v/d. - Physical Exam Vitals/I&O's: Vital Signs Temp Pulse Resp BP Pulse Ox 98.8 F 77 18 160/54 H 92 07/04/19 13:45 07/04/19 13:45 07/04/19 13:45 07/04/19 13:45 07/04/19 13:45 Oxygen Delivery Method Room Air Weight: 191.779 kg Body Mass Index (BMI) 50.1 Finger Stick Blood Glucose 222 Intake and Output for Last 24 Hours 07/02/19 07/03/19 07/04/19 23:59 23:59 23:59 Intake Total 2909.75 / 3709.75 3730 / 4430 2320.75 / 2320.75 Output Total 2670 / 3870 4150 / 6000 4550 / 4550 Balance 239.75 / -160.25 -420 / -1570 -2229.25 / -2229.25 General: Alert, Cooperative, No apparent distress Lungs: Clear to auscultation, Normal air movement Cardiovascular: Regular rate, Regular Rhythm Abdomen: Soft, Non Tender, Non-Distended Skin: Ulcer/ Wound - foot wrapped Microbiology Past 72 Hours 06/29/19 13:22 Blood Culture (Wb) - Left Hand Blood Culture - Final No growth in 5 days. 06/29/19 12:28 Blood Culture (Wb) - Anticubital Right Blood Culture - Final No growth in 5 days. 07/01/19 14:58 Other - Other Acid Fast Bacilli Smear - Final 07/01/19 14:58 Other - Other Gram Stain - Final 07/01/19 14:58 Other - Other Wound Culture - Preliminary No growth-Final to follow 07/01/19 14:58 Other - Other Anaerobic Culture - Preliminary No growth in 48 hours. 07/02/19 13:54 Stool C. difficile DNA Amplification - Final Laboratory Results 07/03/19 16:43: POC Glucose 103 07/03/19 21:28: POC Glucose 145 H 07/04/19 05:24: WBC 9.7, RBC 3.38 L, Hgb 8.7 L, Hct 28.2 L, MCV 83.4, MCH 25.7 L, MCHC 30.9 L, RDW Std Deviation 45.5 H, RDW Coeff of Pool 15.1 H, Plt Count 285, MPV 9.9, Immature Gran % (Auto) 1.500 H, Neut % (Auto) 71.5 H, Lymph % (Auto) 13.0 L, Angelina % (Auto) 9.3, Eos % (Auto) 4.3, Baso % (Auto) 0.4, Absolute Neuts (auto) 6.9, Absolute Lymphs (auto) 1.26, Nucleated RBC % 0 07/04/19 05:24: Sodium 137, Potassium 3.9, Chloride 107, Carbon Dioxide 22.0, Anion Gap 8, BUN 30 H, Creatinine 1.22, Estim Creat Clear Calc 77.09, Est GFR (MDRD) Af Amer 77, Est GFR (MDRD) Non-Af 64, BUN/Creatinine Ratio 24.6 H, Glucose 163 H, Calcium 8.8 07/04/19 07:02: POC Glucose 161 H 07/04/19 11:21: POC Glucose 175 H Current Medications Acetaminophen (Tylenol) 650 mg PO Q6H PRN PRN PRN Reason: Pain Score 1-10/Temp > 100.7 F Last Admin: 07/04/19 05:29 Dose: 650 mg Documented by: Hydrocodone Bitart/Acetaminophen ([place] 5mg-325mg) 1 tablet PO Q6H PRN PRN PRN Reason: Pain Score 6-10/10 Amlodipine Besylate (Norvasc) 10 mg PO DAILY [facility] Last Admin: 07/04/19 09:08 Dose: 10 mg Documented by: Ascorbic Acid (Vitamin C) 500 mg PO DAILY@0800 [facility] Last Admin: 07/04/19 09:09 Dose: 500 mg Documented by: Glucagon () 1 mg IM .X1 PRN PRN Reason: Hypoglycemia Guaifenesin (Mucinex) 1,200 mg PO BID [facility] Last Admin: 07/04/19 10:54 Dose: Not Given Documented by: Hydralazine HCl (Apresoline) 50 mg PO BID [facility] Last Admin: 07/04/19 09:09 Dose: 50 mg Documented by: Dextrose (Dextrose 10%-Water) 250 mls @ 999 mls/hr IV .Q16M PRN; Protocol PRN Reason: HYPOGLYCEMIA Vancomycin IV Pharmacy to Dose (1 ea/ Sodium Chloride) 500 mls @ 250 mls/hr IV PRN PRN; Protocol PRN Reason: Rx to Dose Sodium Chloride () 250 mls @ 15 mls/hr IV .[id number] PRN PRN Reason: Saline Flush Last Infusion: 07/04/19 06:58 Dose: 0 mls/hr Documented by: Sodium Chloride () 250 mls @ 15 mls/hr IV .[id number] PRN PRN Reason: Additional IVPB Infusion Cefepime HCl 2 gm/ Sodium (Chloride) 100 mls @ 200 mls/hr IV Q8 [facility] Last Infusion: 07/04/19 14:10 Dose: Infused Documented by: Vancomycin HCl 1,250 mg/ (Sodium Chloride) 275 mls @ 167 mls/hr IV Q24H [facility] Last Infusion: 07/04/19 03:55 Dose: Infused Documented by: Insulin Human Lispro (Humalog Kwikpen (Bkc)) 0 unit SC ACHS [facility]; Protocol Last Admin: 07/04/19 12:02 Dose: Not Given Documented by: Insulin Human Lispro (Humalog Kwikpen (Bkc)) 30 unit SC 0800,1200,1700 [facility] Last Admin: 07/04/19 12:02 Dose: Not Given Documented by: Insulin Human NPH (Humulin N (Bkc)) 40 units SC QHS [facility] Last Admin: 07/03/19 21:29 Dose: Not Given Documented by: Lactobacillus Acidophilus (Acidophilus) 1 tablet PO BID [facility] Last Admin: 07/04/19 09:08 Dose: 1 tablet Documented by: Lisinopril (Zestril) 10 mg PO DAILY [facility] Last Admin: 07/04/19 09:09 Dose: 10 mg Documented by: Loperamide HCl (Imodium) 2 mg PO Q4H PRN PRN PRN Reason: Diarrhea Metoprolol Succinate (Toprol Xl (Beta Marshall)) 50 mg PO DAILY [facility] Last Admin: 07/04/19 09:09 Dose: 50 mg Documented by: Metronidazole (Flagyl) 500 mg PO TID [facility] Last Admin: 07/04/19 13:41 Dose: 500 mg Documented by: Morphine Sulfate () 2 mg IV Q3H PRN PRN PRN Reason: Pain Score 6-10/10 Nutritional Formula (Vu - [place] Flavor) [facility] Last Admin: 07/04/19 09:08 Dose: 1 packet Documented by: Nystatin (Mycostatin Powder) 1 applic TOPICAL TID [facility]; Protocol Last Admin: 07/04/19 13:40 Dose: Not Given Documented by: Ondansetron HCl (Zofran) 4 mg IV Q8H PRN PRN PRN Reason: NAUSEA/VOMITING Polysaccharide Iron Complex (Ferrex 150) 150 mg PO DAILYCM [facility] Last Admin: 07/04/19 09:09 Dose: 150 mg Documented by: Senna/Docusate Sodium (Senokot-S, Susy-Colace) 2 tablet PO BID PRN PRN PRN Reason: Constipation Sodium Chloride () 10 - 40 ml IV UD PRN PRN Reason: SALINE FLUSH Last Admin: 07/04/19 13:43 Dose: 10 ml Documented by: Medical Necessity - Tobacco Use Smoking Status: Never smoker Route of nutrition/ use of supplements: [] Nutritional Intake: [] IV Site: [] Hernandez Catheter: [] - Assessment/Plan Antibiotics: [] Assessment/Plan: [] Active and Suspected Problems Diabetic foot infection (Acute) L foot osteo - OR 06/30 for I&D. Concern for nec fasc intra-op. Surg cx neg so far. Outpt wound cx 06/28 with GAS, ecoli, PsA, MRSA, coryne, and anaerobes. Improving on vanc/cefepime/flagyl. Will order picc, plan on these abx for 6 week course, stop date 08/12/19, weekly bmp/cbc/esr/vanc trough. He is to have outpt eval for BKA. ID followup in 2 weeks. Will follow, d/w primary team. Wrote rx for labs and abx.
[2019-07-04 16:35] LABS: Bedside Glucose 163 mg/dL (70-110)
[2019-07-04] MEDS: Insulin Lispro 100 UNIT/ML INSULN.PEN SC (17:17)
[2019-07-04] MEDS: guaiFENesin 1,200 MG Tablet 1200 MG PO (22:56)
[2019-07-04] MEDS: Insulin NPH Human 100 UNITS/ML PEN 40 UNITS SC (22:59)
[2019-07-04 23:31] LABS: Bedside Glucose 186 mg/dL (70-110)
[2019-07-05 02:00] VITALS: BP 152/52; PULSE 73; RESP 18; TEMP 36.8; O2SAT 96
[2019-07-05 02:55] LABS: Vancomycin, Trough Level 19.2 ug/mL (5.0-15.0)
--- NOTE | 2019-07-05 02:56 | NURSING ---
notified mandy in pharmacy of pt's vanc trough level
--- NOTE | 2019-07-05 03:02 | PHA.PHARE_ITS ---
Consult Pharmacy has been consulted to manage selected antiobiotic: Vancomycin Type of Consult: Follow-up Suspected Infection: Skin/Soft tissue Prior Doses of Antibiotics Received/Current Regimen: Medications Vancomycin HCl 1,250 mg/ (Sodium Chloride) 275 mls @ 167 mls/hr IV Q24H JIM Stop: 07/05/19 03:23 Last Admin: 07/05/19 01:44 Dose: 167 mls/hr Vancomycin HCl (Vancomycin) 1,000 mg in 200 mls @ 200 mls/hr IV Q24H [facility] Labs: Sodium 137 mmol/L (136-145) 07/04/19 05:24 Potassium 3.9 mmol/L (3.5-5.1) 07/04/19 05:24 Chloride 107 mmol/L (98-107) 07/04/19 05:24 Carbon Dioxide 22.0 mmol/L (21.0-32.0) 07/04/19 05:24 Anion Gap 8 (5-15) 07/04/19 05:24 BUN 30 mg/dL (7-18) H 07/04/19 05:24 Creatinine 1.22 mg/dL (0.70-1.30) 07/04/19 05:24 Est GFR (MDRD) Af Amer 77 mL/min (>60) 07/04/19 05:24 Est GFR (MDRD) Non-Af 64 mL/min (>60) 07/04/19 05:24 BUN/Creatinine Ratio 24.6 RATIO (10-20) H 07/04/19 05:24 Glucose 163 mg/dL (74-106) H 07/04/19 05:24 Vancomycin Trough 19.2 ug/mL (5.0-15.0) H 07/05/19 01:42 Microbiology: Microbiology 06/29/19 13:22 Blood Culture (Wb) - Left Hand Blood Culture - Final No growth in 5 days. 06/29/19 12:28 Blood Culture (Wb) - Anticubital Right Blood Culture - Final No growth in 5 days. 07/01/19 14:58 Other - Other Acid Fast Bacilli Smear - Final 07/01/19 14:58 Other - Other Gram Stain - Final 07/01/19 14:58 Other - Other Wound Culture - Preliminary No growth-Final to follow 07/01/19 14:58 Other - Other Anaerobic Culture - Preliminary No growth in 48 hours. 07/02/19 13:54 Stool C. difficile DNA Amplification - Final Weight used for dosin.8 kg Estimated Creatinine Clearance: 77 Goal Trough: 10-15 mcg/mL Pharmacy Plan for Drug Dosing: Trough level of 19.2 was still above the target range of 10-15. Will again decrease the dose, now to 1000mg q24h and re-draw trough 07/07/19. Pharmacy Service will continue to monitor and adjust dosing as required. Follow-Up Labs: Trough Vancomycin Labs to be done on [date and time ordered]: 07/07/19 @0130
[2019-07-05 05:25] LABS: Hematocrit 29.4 % (40-54); Hemoglobin 9.1 g/dL (13.0-16.5)
[2019-07-05] MEDS: metroNIDAZOLE 500 MG Tablet PO ×2 (06:43→13:00)
[2019-07-05] MEDS: 0.9% Saline Lock 10 ML Syringe IV (06:43)
[2019-07-05] MEDS: Nystatin Powder 15gm Bottle 1 APPLIC TOPICAL ×2 (06:44→15:37)
[2019-07-05] MEDS: Insulin Lispro 100 UNIT/ML INSULN.PEN SC (07:45)
[2019-07-05] MEDS: Insulin Lispro 100 UNIT/ML INSULN.PEN 30 UNIT SC ×2 (07:47→12:57)
[2019-07-05] MEDS: Iron Polysaccharide Complex 150 MG CAPSULE PO (07:48)
[2019-07-05] MEDS: Ascorbic Acid 500 MG Tablet PO (07:49)
[2019-07-05 07:50] VITALS: O2SAT 92
[2019-07-05 08:21] LABS: Bedside Glucose 190 mg/dL (70-110)
--- NOTE | 2019-07-05 09:23 | CASEMGMT ---
Addendum entered by Emperatriz Moore 07/05/19 15:15: Pt to be picked up at 1800 and [facility] aware that pt will not be transported home until that time. Call to [facility] and she states that pt does not need to be at his home for the delivery, that it will just be dropped off d/t COVID virus. wound notes/pic also faxed to [facility] at this time. Babak BATES CM Addendum entered by Emperatriz Moore 07/05/19 14:01: D/C summ/instructions faxed to [facility] at this time. Pt now states does not have a ride home at discharge and Kip MACIAS has been working on options at this time. Babak BATES CM Original Note: This RN CM received message from Lucrecia at [facility] and she states she had a few more questions prior to taking pt. Call back to Lucrecia and all questions answered at this time. Lucrecia states that they will take pt at this time and she is aware that they will need to do evening Cefepime dose tonight and states 'that shouldn't be a problem.' Lucrecia is aware that [facility]/[employer] will be taking care of all infusion supplies and provided with contact info at this time, voices understanding. This RN CM received call from [facility]up[facility] at [facility] stating that all pt's antibx/supplies will be covered at 100% and they will be able to ship to do start of care this pm. Anupama's contact info: [phone] and fax [phone]. Anupama is updated on [facility] for [facility] and provided Lucrecia's contact info at this time. Pt, Shivani BATES, and Lisy CARRILLO updated on all at this time, voice understanding. Pt voices no further questions/concerns/needs at this time. Pt states that he is able to do IV antibx at home as he has done them in the past and [facility] was made aware. Babak BATES CM
[2019-07-05 09:45] VITALS: BP 170/61; PULSE 83; RESP 18; TEMP 36.8; O2SAT 98
[2019-07-05 09:47] VITALS: PULSE 83
[2019-07-05] MEDS: hydrALAZINE 50 MG Tablet PO (09:47)
[2019-07-05] MEDS: guaiFENesin 1,200 MG Tablet 1200 MG PO (09:47)
[2019-07-05] MEDS: amLODIPine 10 MG Tablet PO (09:47)
[2019-07-05] MEDS: Metoprolol(XL)Succ 50 MG Tablet PO (09:47)
[2019-07-05] MEDS: Lisinopril 10 MG Tablet PO (09:48)
--- NOTE | 2019-07-05 11:19 | DCINST_ITS ---
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) You will use the following diet at home:: Calorie/Carbohydrate Controlled (specify 1200, 1400, etc) - 1800 [place] / day, Cardiac Your food should be the consistency of: Regular Your liquids should be the consistency of: Regular/Thin Discharge Activity: Return to Normal Activity, Use Walker Weight Bearing Status: Partial weight bearing - Forefoot weightbearing right lower extremity, No weight bearing - left lower extremity Keep extremity elevated above heart level: Left Leg, Right Leg Call your doctor if your incision/area has: Continuous Slow Oozing, Sudden Increased Bleeding, Increased Pain/ Swelling, Increased Redness, Foul Smelling Discharge, Swelling at the incision site Call your doctor if you observe: Fever of 101 or Higher, Shortness of breath, Calf discomfort, Uncontrolled pain Cleanse incision/area with: Soap & Water, - - Right foot: Aquacell AG and dry gauze and Kerlix secondary dressings Left foot: Betadine soaked gauze packed into foot debridement site and dry gauze, abdominal pads, Kerlix secondary dressings. Bilateral lower extremities: Mateus wrap from foot to proximal legs Additional Instructions: You will need a BMP in 3 days and to discuss ongoing lasix therapy with your PCP in 1 week at follow up. Monitor daily weights. If 2 or more pound weight gain in 24 hours or 5 pounds in 7 days call your doctor for additional instructions regarding lasix. Allergies/Adverse Reactions: Allergies ciprofloxacin [From Cipro] Allergy (Verified 06/29/19 11:34) Rash he has tolerated oral cipro in the past levofloxacin [From Levaquin] Allergy (Verified 06/29/19 11:34) Hives Penicillins Allergy (Verified 06/29/19 11:34) Hives silver Allergy (Verified 06/29/19 11:34) Rash Skin márquez and itches, rash Medications to take at Discharge Lisinopril [Zestril] 10 mg PO DAILY 06/04/17 Metoprolol(XL)Succ [Toprol Xl (Beta Marshall)] 50 mg PO DAILY 06/04/17 Ascorbic Acid [Vitamin C] 500 mg PO DAILY@0800 05/02/19 Furosemide 40 mg PO DAILY #0 05/05/19 Insulin Regular, Human [Novolin R] 30 unit SQ TID #0 05/05/19 Insulin NPH Human Isophane [Novolin N Flexpen] 40 unit SQ QHS 06/29/19 hydrALAZINE [Apresoline] 50 mg PO BID 06/29/19 Cefepime HCl [Maxipime] 2 gm IV Q8 39 Days #117 vial 07/04/19 Vancomycin IV 1,250 mg IV Q24H 39 Days #39 vial 07/04/19 metroNIDAZOLE [Flagyl] 500 mg PO TID #120 tab 07/04/19 Acetaminophen [Tylenol Tablet] 650 mg PO Q6H PRN PRN tab 07/05/19 Amlodipine Besylate [Norvasc] 10 mg PO DAILY #30 tab 07/05/19 Amlodipine [Norvasc] 10 mg PO DAILY tab 07/05/19 Iron Polysaccharide Complex [Ferrex 150] 150 mg PO DAILYCM #30 cap 07/05/19 Lactobacillus Acidophilus [Acidophilus] 1 tab PO BID #28 tab 07/05/19 Nystatin Powder [Mycostatin Powder] 1 applic TOPICAL TID bottle 07/05/19 Oxycodone [Oxyir] 5 mg PO Q6H PRN PRN 3 Days #12 tab 07/05/19 The following prescriptions were given: Lactobacillus Acidophilus [Acidophilus] 1 tab PO BID #28 tab Transmission Status: Sent to [facility] [address] Iron Polysaccharide Complex [Ferrex 150] 150 mg PO DAILYCM #30 cap Transmission Status: Sent to [facility] [address] metroNIDAZOLE [Flagyl] 500 mg PO TID #120 tab Prescription Printed Cefepime HCl [Maxipime] 2 gm IV Q8 39 Days #117 vial Prescription Printed Amlodipine Besylate [Norvasc] 10 mg PO DAILY #30 tab Transmission Status: Sent to [facility] [address] Oxycodone [Oxyir] 5 mg PO Q6H PRN PRN 3 Days #12 tab PRN Reason: Pain Score 6-10/10 Transmission Status: Received by [facility] [address] Vancomycin IV 1,250 mg IV Q24H 39 Days #39 vial Prescription Printed Primary Care Physician: Ac Felix MD [Primary Care Provider] - Please follow up with your Primary Care Physician in: 1 week Test Results: Test results from this visit will be discussed in further detail at your follow- up appointment, if applicable. Please Follow Up With: Clinic,Wound - Dr. Hernández When: 1 week Please Follow Up With: Tip Pompa MD When: outpatient office or wound healing center for amputation referral Proposed Discharge Date: 07/04/19
[2019-07-05 12:01] LABS: Bedside Glucose 144 mg/dL (70-110)
--- NOTE | 2019-07-05 13:16 | DS.PCM_ITS ---
<Quintin Polanco - Last Filed: 07/05/19 13:16> Discharge Date and Diagnosis - Problem List Patient Problems: Active and Suspected Problems Diabetic foot infection (Acute) Date of Admission: 06/29/19 Date of Discharge: 07/05/19 - Primary Discharge Diagnosis Active and Suspected Problems LLE Osteomyelitis, polymicrobial: E coli, Pseudomonas, MRSA, Corynebacterium, Strep Group A, Anaerobic cocci JOANNA on CKDIII T2DM Anemia with iron deficiency Lymphedema HTN - Secondary Discharge Diagnosis Chronic Problems Chronic ulcer of left foot with necrosis of muscle (Chronic) Lymphedema (Chronic) Venous insufficiency (Chronic) Peripheral vascular disease (Chronic) Tinea unguium (Chronic) Chronic ulcer of left foot with fat layer exposed (Chronic) Burn of leg (Chronic) Hammer toe of right foot (Chronic) Walking difficulty due to ankle and foot (Chronic) Obesity (Chronic) Type 2 diabetes mellitus with diabetic polyneuropathy (Chronic) Ulcer of left lower extremity with fat layer exposed (Chronic) Chronic ulcer of left foot with fat layer exposed (Chronic) Ulcer of right foot with fat layer exposed (Chronic) Ulcer of right lower extremity with fat layer exposed (Chronic) Ulcer of right lower extremity with fat layer exposed (Chronic) Chronic ulcer of left foot with fat layer exposed (Chronic) Dehiscence of amputation stump (Chronic) Type 2 diabetes mellitus with diabetic polyneuropathy (Chronic) Non-pressure chronic ulcer of right heel and midfoot with fat layer exposed (Chronic) Obesity (Chronic) Diabetes mellitus with polyneuropathy (Chronic) Non-pressure chronic ulcer of right heel and midfoot with necrosis of muscle (Chronic) Diabetic foot ulcer (Chronic) Osteomyelitis of foot (Chronic) Ulcer of right heel and midfoot with fat layer exposed (Chronic) Chronic ulcer of left foot with necrosis of muscle (Chronic) Hospital Course and Treatment Imaging Results: IMAGING: RAD/Foot min 3 Views IMPRESSION: No radiographic evidence of acute osteomyelitis Soft tissue swelling with lateral ulceration First through fifth digit transmetatarsal amputations RAD/Chest 1 View (Portable) IMPRESSION: Cardiomegaly with mild vascular congestion Left retrocardiac hazy airspace disease (statistically edema) MRI/Lower Ext/No Jt/w/o IMPRESSION: Osteomyelitis of the fifth metatarsal. Soft tissue defect with abnormal air in the soft tissues. RAD/Foot min 3 Views IMPRESSION: Fluoroscopic guided debridement of soft tissue and bone the base of the fourth and fifth toes Consultations 06/29/19 15:10 Consult: Onc/Wound/airport tower controller Routine Comment: Podiatry: Betty Infectious Disease: Dhruv Operations: - - I&D LLE with bone Bx. 07/01/19 Procedures: None Summary of Care Provided: Hospital Course: The patient is a 64 year old M with pmhx of nonhealing diabetic foot wounds with prior toe amputations, DMt2 with morbid obesity, CKDIII, anemia with iron deficiency, lymphedema, HTN who presented to the ER sent by his director of spa and guest experience Dr. Hernández as he had increasing pain and swelling of the left foot with increased drainage and green discharge. The patient appeared to have LLE cellulitis and th e chronic LLE wound was suspicious for underlying osteomyelitis. He had no fever but WBC of 14.6, anemia with Hgb 9.8 and JOANNA per BMP, ESR 109 and CRP 171. He was admitted and started on IV fluids, nephrotoxins held, started on Vanc and Cefepime based on old culture polymicrobial growth. Podiatry and ID consulted. Foot xray showed no osteo however the follow up MRI showed osteomyelitis of the 5th metatarsal. He was taken to the OR for I&D with bone bx 06/30 which he tolerated well. We also discussed the possible need for amputation which he plans to pursue down the road and will be referred to Dr. Pompa for as an outpatient. Leukocytosis, swelling, and pain all improved well after surgery. Renal function improved with IV fluids and continued to improve when taken off fluids. He was found to have iron deficiency and was started on iron replacement therapy, hgb stabilized and began to improve. Wound cultures taken prior to presentation grew E coli, Pseudomonas, MRSA, Corynebacterium, Strep Group A and Anaerobic cocci. Abx course was altered to IV Cefepime, Flagyl, and Vanc. We arranged for him to have home health care for ongoing home IV abx which ID has provided rx for, wound care, and PTOT if needed. He will follow up with Dr. Hernández in the wound center within a week, Dr. Pompa in the wound center, and with his PCP in 1 week. He was discharged home with home health care in stable condition. He may resume lasix, and will need BMP checked this week. This patient was seen by Quintin Polanco PA-C under the supervision of Dr. Rolle. [] Patient Problems: Active and Suspected Problems Diabetic foot infection (Acute) - Physical Exam Vitals/I&O's: Vital Signs Temp Pulse Resp BP Pulse Ox 98.3 F 83 18 170/61 H 98 07/05/19 09:45 07/05/19 09:47 07/05/19 09:45 07/05/19 09:45 07/05/19 09:45 Oxygen Delivery Method Room Air Weight: 422 lb 12.805 oz Body Mass Index (BMI) 50.1 Finger Stick Blood Glucose 222 Intake and Output for Last 24 Hours 07/03/19 07/04/19 07/05/19 23:59 23:59 23:59 Intake Total 3730 / 4430 2420.75 / 2820.75 1976.00 / 1976.00 Output Total 4150 / 6000 5300 / 6100 3550 / 3550 Balance -420 / -1570 -2879.25 / -3279.25 -1574.00 / -1574.00 General: Alert, Oriented x3, Cooperative HEENT: Atraumatic, PERRLA, EOMI, Normocephalic Neck: Supple, No JVD, Negative Carotid Bruits Lungs: Clear to auscultation, Normal air movement Cardiovascular: Regular rate, No murmurs Abdomen: Bowel Sounds Present, Soft, Non Tender, Obese Extremities: No edema, Capillary Refill Less than 3 Seconds Skin: No rashes, No breakdown Musculoskeletal: No Tenderness to Palpation of Joints or Extremities Neurological: Cranial nerves II-XII grossly intact Psych/Mental Status: Normal Affect, Appropriate, Alert and oriented to time, place, person, mood and affect Microbiology Past 72 Hours 07/01/19 14:58 Other - Other Gram Stain - Final 07/01/19 14:58 Other - Other Wound Culture - Final No growth aerobically. 07/01/19 14:58 Other - Other Anaerobic Culture - Preliminary No growth in 48 hours. 06/29/19 13:22 Blood Culture (Wb) - Left Hand Blood Culture - Final No growth in 5 days. 06/29/19 12:28 Blood Culture (Wb) - Anticubital Right Blood Culture - Final No growth in 5 days. 07/01/19 14:58 Other - Other Acid Fast Bacilli Smear - Final 07/02/19 13:54 Stool C. difficile DNA Amplification - Final Laboratory Results 07/04/19 16:19: POC Glucose 163 H 07/04/19 22:52: POC Glucose 186 H 07/05/19 01:42: Vancomycin Trough 19.2 H 07/05/19 05:00: Hgb 9.1 L, Hct 29.4 L 07/05/19 07:42: POC Glucose 190 H 07/05/19 11:52: POC Glucose 144 H Current Medications Acetaminophen (Tylenol) 650 mg PO Q6H PRN PRN PRN Reason: Pain Score 1-10/Temp > 100.7 F Last Admin: 07/04/19 20:34 Dose: 650 mg Documented by: Hydrocodone Bitart/Acetaminophen ([place] 5mg-325mg) 1 tablet PO Q6H PRN PRN PRN Reason: Pain Score 6-10/10 Amlodipine Besylate (Norvasc) 10 mg PO DAILY [facility] Last Admin: 07/05/19 09:47 Dose: 10 mg Documented by: Ascorbic Acid (Vitamin C) 500 mg PO DAILY@0800 [facility] Last Admin: 07/05/19 07:49 Dose: 500 mg Documented by: Glucagon () 1 mg IM .X1 PRN PRN Reason: Hypoglycemia Guaifenesin (Mucinex) 1,200 mg PO BID [facility] Last Admin: 07/05/19 09:47 Dose: 1,200 mg Documented by: Hydralazine HCl (Apresoline) 50 mg PO BID [facility] Last Admin: 07/05/19 09:47 Dose: 50 mg Documented by: Dextrose (Dextrose 10%-Water) 250 mls @ 999 mls/hr IV .Q16M PRN; Protocol PRN Reason: HYPOGLYCEMIA Vancomycin IV Pharmacy to Dose (1 ea/ Sodium Chloride) 500 mls @ 250 mls/hr IV PRN PRN; Protocol PRN Reason: Rx to Dose Sodium Chloride () 250 mls @ 15 mls/hr IV .[id number] PRN PRN Reason: Saline Flush Last Infusion: 07/05/19 06:45 Dose: 0 mls/hr Documented by: Sodium Chloride () 250 mls @ 15 mls/hr IV .[id number] PRN PRN Reason: Additional IVPB Infusion Cefepime HCl 2 gm/ Sodium (Chloride) 100 mls @ 200 mls/hr IV Q8 [facility] Last Admin: 07/05/19 13:00 Dose: 200 mls/hr Documented by: Vancomycin HCl (Vancomycin) 1,000 mg in 200 mls @ 200 mls/hr IV Q24H [facility] Insulin Human Lispro (Humalog Kwikpen (Bkc)) 0 unit SC ACHS [facility]; Protocol Last Admin: 07/05/19 12:03 Dose: Not Given Documented by: Insulin Human Lispro (Humalog Kwikpen (Bkc)) 30 unit SC 0800,1200,1700 [facility] Last Admin: 07/05/19 12:57 Dose: 30 units Documented by: Insulin Human NPH (Humulin N ([facility])) 40 units SC QHS [facility] Last Admin: 07/04/19 22:59 Dose: 40 u Documented by: Lactobacillus Acidophilus (Acidophilus) 1 tablet PO BID [facility] Last Admin: 07/05/19 09:47 Dose: 1 tablet Documented by: Lisinopril (Zestril) 10 mg PO DAILY [facility] Last Admin: 07/05/19 09:48 Dose: 10 mg Documented by: Loperamide HCl (Imodium) 2 mg PO Q4H PRN PRN PRN Reason: Diarrhea Metoprolol Succinate (Toprol Xl (Beta Marshall)) 50 mg PO DAILY [facility] Last Admin: 07/05/19 09:47 Dose: 50 mg Documented by: Metronidazole (Flagyl) 500 mg PO TID [facility] Last Admin: 07/05/19 13:00 Dose: 500 mg Documented by: Morphine Sulfate () 2 mg IV Q3H PRN PRN PRN Reason: Pain Score 6-10/10 Nutritional Formula ([facility] - Pershing Fl[facility]) [facility] Last Admin: 07/05/19 07:48 Dose: 1 packet Documented by: Nystatin (Mycostatin Powder) 1 applic TOPICAL TID [facility]; Protocol Last Admin: 07/05/19 06:44 Dose: 1 applicatio Documented by: Ondansetron HCl (Zofran) 4 mg IV Q8H PRN PRN PRN Reason: NAUSEA/VOMITING Polysaccharide Iron Complex (Ferrex 150) [facility] Last Admin: 07/05/19 07:48 Dose: 150 mg Documented by: Senna/Docusate Sodium (Senokot-S, Susy-Colace) 2 tablet PO BID PRN PRN PRN Reason: Constipation Sodium Chloride () 10 - 40 ml IV UD PRN PRN Reason: SALINE FLUSH Last Admin: 07/05/19 06:43 Dose: 20 ml Documented by: Discharge Diet: Low fat/ Low Cholesterol, 1800 Calorie Control Diet, 2000 mg Sodium Diet Discharge Activity: Return to Normal Activity, Use Walker Weight Bearing Status: Partial weight bearing - Forefoot weightbearing right lower extremity, No weight bearing - left lower extremity Keep extremity elevated above heart level: Left Leg, Right Leg Call your doctor if your incision/area has: Continuous Slow Oozing, Sudden Increased Bleeding, Increased Pain/ Swelling, Increased Redness, Foul Smelling Discharge, Swelling at the incision site Call your doctor if you observe: Fever of 101 or Higher, Shortness of breath, Calf discomfort, Uncontrolled pain Cleanse incision/area with: Soap & Water, - - Right foot: Aquacell AG and dry gauze and Kerlix secondary dressings Left foot: Betadine soaked gauze packed into foot debridement site and dry gauze, abdominal pads, Kerlix secondary dressings. Bilateral lower extremities: Mateus wrap from foot to proximal legs Home Medications: Medications to take at Discharge Lisinopril [Zestril] 10 mg PO DAILY 06/04/17 Metoprolol(XL)Succ [Toprol Xl (Beta Marshall)] 50 mg PO DAILY 06/04/17 Ascorbic Acid [Vitamin C] 500 mg PO DAILY@0800 05/02/19 Furosemide 40 mg PO DAILY #0 05/05/19 Insulin Regular, Human [Novolin R] 30 unit SQ TID #0 05/05/19 Insulin NPH Human Isophane [Novolin N Flexpen] 40 unit SQ QHS 06/29/19 hydrALAZINE [Apresoline] 50 mg PO BID 06/29/19 Cefepime HCl [Maxipime] 2 gm IV Q8 39 Days #117 vial 07/04/19 Vancomycin IV 1,250 mg IV Q24H 39 Days #39 vial 07/04/19 metroNIDAZOLE [Flagyl] 500 mg PO TID #120 tab 07/04/19 Acetaminophen [Tylenol Tablet] 650 mg PO Q6H PRN PRN tab 07/05/19 Amlodipine Besylate [Norvasc] 10 mg PO DAILY #30 tab 07/05/19 Amlodipine [Norvasc] 10 mg PO DAILY tab 07/05/19 Iron Polysaccharide Complex [Ferrex 150] 150 mg PO DAILYCM #30 cap 07/05/19 Lactobacillus Acidophilus [Acidophilus] 1 tab PO BID #28 tab 07/05/19 Nystatin Powder [Mycostatin Powder] 1 applic TOPICAL TID bottle 07/05/19 Oxycodone [Oxyir] 5 mg PO Q6H PRN PRN 3 Days #12 tab 07/05/19 Following Prescrptions Were Given to Patient: Lactobacillus Acidophilus [Acidophilus] 1 tab PO BID #28 tab Transmission Status: Received by [facility] [address] Iron Polysaccharide Complex [Ferrex 150] 150 mg PO DAILYCM #30 cap Transmission Status: Received by [facility] [address] metroNIDAZOLE [Flagyl] 500 mg PO TID #120 tab Prescription Printed Cefepime HCl [Maxipime] 2 gm IV Q8 39 Days #117 vial Prescription Printed Amlodipine Besylate [Norvasc] 10 mg PO DAILY #30 tab Transmission Status: Received by [facility] [address] Oxycodone [Oxyir] 5 mg PO Q6H PRN PRN 3 Days #12 tab PRN Reason: Pain Score 6-10/10 Transmission Status: Received by [facility] [address] Vancomycin IV 1,250 mg IV Q24H 39 Days #39 vial Prescription Printed Primary Care Physician: Ac Felix MD [Primary Care Provider] - Please follow up with your Primary Care Physician in: 1 week Please Follow Up With: Clinic,Wound When: 1 week Please Follow Up With: Tip Pompa MD When: outpatient office or wound healing center for amputation referral Please Follow Up With: Ac Felix When: 1 week Disposition: Home with Home Health Minutes spent on discharge:: 35 Patient Condition:: Stable Medical Necessity - Tobacco Use Smoking Status: Never smoker Meaningful Use Info Meaningful Use Diagnoses (Choose all that apply): None applicable <Jessy Rolle - Last Filed: 07/05/19 15:48> Discharge Date and Diagnosis - Primary Discharge Diagnosis Active and Suspected Problems Diabetic foot infection (Acute) - Secondary Discharge Diagnosis Chronic Problems Chronic ulcer of left foot with necrosis of muscle (Chronic) Lymphedema (Chronic) Venous insufficiency (Chronic) Peripheral vascular disease (Chronic) Tinea unguium (Chronic) Chronic ulcer of left foot with fat layer exposed (Chronic) Burn of leg (Chronic) Hammer toe of right foot (Chronic) Walking difficulty due to ankle and foot (Chronic) Obesity (Chronic) Type 2 diabetes mellitus with diabetic polyneuropathy (Chronic) Ulcer of left lower extremity with fat layer exposed (Chronic) Chronic ulcer of left foot with fat layer exposed (Chronic) Ulcer of right foot with fat layer exposed (Chronic) Ulcer of right lower extremity with fat layer exposed (Chronic) Ulcer of right lower extremity with fat layer exposed (Chronic) Chronic ulcer of left foot with fat layer exposed (Chronic) Dehiscence of amputation stump (Chronic) Type 2 diabetes mellitus with diabetic polyneuropathy (Chronic) Non-pressure chronic ulcer of right heel and midfoot with fat layer exposed (Chronic) Obesity (Chronic) Diabetes mellitus with polyneuropathy (Chronic) Non-pressure chronic ulcer of right heel and midfoot with necrosis of muscle (Chronic) Diabetic foot ulcer (Chronic) Osteomyelitis of foot (Chronic) Ulcer of right heel and midfoot with fat layer exposed (Chronic) Chronic ulcer of left foot with necrosis of muscle (Chronic) Hospital Course and Treatment Consultations 06/29/19 15:10 Consult: Onc/Wound/airport tower controller Routine Comment: Summary of Care Provided: Patient seen by Quintin Polanco PA-C under my supervision The patient is a 64 year old M with a past medical history as outlined which includes a history of nonhealing diabetic foot ulcers. He was admitted through the ED after he was sent there by his director of spa and guest experience on account of increasing pain and swelling of the left foot with increased drainage and greenish discharge. He was admitted for left lower extremity cellulitis with suspicion for osteomyelitis. White cell count was mildly elevated at 14. He was started on IV vancomycin and cefepime and podiatry and ID were consulted. Blood cultures w ere negative after 5 days. Flagyl was added on per ID recommendations. Foot imaging done. X-ray showed no evidence of osteomyelitis but MRI of the left foot showed osteomyelitis of the fifth metatarsal. He had I&D with bone debridement done on 07/01/2019 and tolerated it well. Patient had requested for amputation of his foot as he was tired of dealing with a recurrent infections. Podiatry reviewed him and patient was informed that he would be referred for amputation on outpatient basis. Previous blood cultures done before admission showed E. coli, Pseudomonas, MRSA, Corynebacterium, strep group A and anaerobic cocci. Patient remained stable and was discharged home after PICC line was placed. He was discharged on 07/05/2019 on IV vancomycin, cefepime and Flagyl per ID recommendation. He stopped his antibiotics for 6 weeks and is to have a weekly CBC, BMP, ESR and vancomycin trough results of to be sent to primary care doctor and infectious disease. He is to follow-up with infectious diseases and his primary care doctor as well as podiatry. Of note, patient developed diarrhea during this admission and C. difficile was negative. It was thought to be due to a reaction to his antibiotics. Diarrhea subsequently resolved. Patient seen and examined prior to discharge. He had no complaints and felt well. Review of systems otherwise negative. Labs and vitals reviewed. Home medications reviewed and reconciled. o/e: Vital Signs Temp Pulse Resp BP Pulse Ox 98.3 F 83 18 170/61 H 98 07/05/19 09:45 07/05/19 09:47 07/05/19 09:45 07/05/19 09:45 07/05/19 09:45 [] General: Alert, Oriented x3, Cooperative HEENT: Atraumatic, PERRLA, EOMI, Normocephalic Neck: Supple, No JVD, Negative Carotid Bruits Lungs: Clear to auscultation, Normal air movement Cardiovascular: Regular rate, No murmurs Abdomen: Bowel Sounds Present, Soft, Non Tender, Obese Extremities: both LEs wrapped in bandage; Skin: No rashes, No breakdown Musculoskeletal: No Tenderness to Palpation of Joints or Extremities, RUE PICC line in place Neurological: Cranial nerves II-XII grossly intact Psych/Mental Status: Normal Affect, Appropriate, Alert and oriented to time, place, person, mood and affect Plan is for discharge home with home health care as above. Rest as per Quintin Polanco PA-C's notes which I have reviewed and endorsed. - Physical Exam Vitals/I&O's: Vital Signs Temp Pulse Resp BP Pulse Ox 98.3 F 83 18 170/61 H 98 07/05/19 09:45 07/05/19 09:47 07/05/19 09:45 07/05/19 09:45 07/05/19 09:45 Oxygen Delivery Method Room Air Weight: 422 lb 12.805 oz Body Mass Index (BMI) 50.1 Finger Stick Blood Glucose 222 Intake and Output for Last 24 Hours 07/03/19 07/04/19 07/05/19 23:59 23:59 23:59 Intake Total 3730 / 4430 2420.75 / 2820.75 2076.00 / 2076.00 Output Total 4150 / 6000 5300 / 6100 3550 / 3550 Balance -420 / -1570 -2879.25 / -3279.25 -1474.00 / -1474.00 Microbiology Past 72 Hours 07/01/19 14:58 Other - Other Gram Stain - Final 07/01/19 14:58 Other - Other Wound Culture - Final No growth aerobically. 07/01/19 14:58 Other - Other Anaerobic Culture - Preliminary No growth in 48 hours. 06/29/19 13:22 Blood Culture (Wb) - Left Hand Blood Culture - Final No growth in 5 days. 06/29/19 12:28 Blood Culture (Wb) - Anticubital Right Blood Culture - Final No growth in 5 days. 07/01/19 14:58 Other - Other Acid Fast Bacilli Smear - Final 07/02/19 13:54 Stool C. difficile DNA Amplification - Final Laboratory Results 07/04/19 16:19: POC Glucose 163 H 07/04/19 22:52: POC Glucose 186 H 07/05/19 01:42: Vancomycin Trough 19.2 H 07/05/19 05:00: Hgb 9.1 L, Hct 29.4 L 07/05/19 07:42: POC Glucose 190 H 07/05/19 11:52: POC Glucose 144 H Current Medications Acetaminophen (Tylenol) 650 mg PO Q6H PRN PRN PRN Reason: Pain Score 1-10/Temp > 100.7 F Last Admin: 07/04/19 20:34 Dose: 650 mg Documented by: Hydrocodone Bitart/Acetaminophen ([place] 5mg-325mg) 1 tablet PO Q6H PRN PRN PRN Reason: Pain Score 6-10/10 Amlodipine Besylate (Norvasc) 10 mg PO DAILY [facility] Last Admin: 04/21/20 09:47 Dose: 10 mg Documented by: Ascorbic Acid (Vitamin C) 500 mg PO DAILY@0800 [facility] Last Admin: 07/05/19 07:49 Dose: 500 mg Documented by: Glucagon () 1 mg IM .X1 PRN PRN Reason: Hypoglycemia Guaifenesin (Mucinex) 1,200 mg PO BID [facility] Last Admin: 07/05/19 09:47 Dose: 1,200 mg Documented by: Hydralazine HCl (Apresoline) 50 mg PO BID [facility] Last Admin: 07/05/19 09:47 Dose: 50 mg Documented by: Dextrose (Dextrose 10%-Water) 250 mls @ 999 mls/hr IV .Q16M PRN; Protocol PRN Reason: HYPOGLYCEMIA Vancomycin IV Pharmacy to Dose (1 ea/ Sodium Chloride) 500 mls @ 250 mls/hr IV PRN PRN; Protocol PRN Reason: Rx to Dose Sodium Chloride () 250 mls @ 15 mls/hr IV .[id number] PRN PRN Reason: Saline Flush Last Infusion: 07/05/19 06:45 Dose: 0 mls/hr Documented by: Sodium Chloride () 250 mls @ 15 mls/hr IV .[id number] PRN PRN Reason: Additional IVPB Infusion Cefepime HCl 2 gm/ Sodium (Chloride) 100 mls @ 200 mls/hr IV Q8 [facility] Last Infusion: 07/05/19 13:30 Dose: Infused Documented by: Vancomycin HCl (Vancomycin) 1,000 mg in 200 mls @ 200 mls/hr IV Q24H [facility] Insulin Human Lispro (Humalog Kwikpen (Bkc)) 0 unit SC ACHS [facility]; Protocol Last Admin: 07/05/19 12:03 Dose: Not Given Documented by: Insulin Human Lispro (Humalog Kwikpen (Bkc)) 30 unit SC 0800,1200,1700 [facility] Last Admin: 07/05/19 12:57 Dose: 30 units Documented by: Insulin Human NPH (Humulin N (Bkc)) 40 units SC QHS [facility] Last Admin: 07/04/19 22:59 Dose: 40 u Documented by: Lactobacillus Acidophilus (Acidophilus) 1 tablet PO BID [facility] Last Admin: 07/05/19 09:47 Dose: 1 tablet Documented by: Lisinopril (Zestril) 10 mg PO DAILY [facility] Last Admin: 07/05/19 09:48 Dose: 10 mg Documented by: Loperamide HCl (Imodium) 2 mg PO Q4H PRN PRN PRN Reason: Diarrhea Metoprolol Succinate (Toprol Xl (Beta Marshall)) 50 mg PO DAILY [facility] Last Admin: 07/05/19 09:47 Dose: 50 mg Documented by: Metronidazole (Flagyl) 500 mg PO TID [facility] Last Admin: 07/05/19 13:00 Dose: 500 mg Documented by: Morphine Sulfate () 2 mg IV Q3H PRN PRN PRN Reason: Pain Score 6-10/10 Nutritional Formula (Vu - Pershing Flavor) [facility] Last Admin: 07/05/19 07:48 Dose: 1 packet Documented by: Nystatin (Mycostatin Powder) 1 applic TOPICAL TID [facility]; Protocol Last Admin: 07/05/19 15:37 Dose: 1 applicatio Documented by: Ondansetron HCl (Zofran) 4 mg IV Q8H PRN PRN PRN Reason: NAUSEA/VOMITING Polysaccharide Iron Complex (Ferrex 150) [facility] Last Admin: 07/05/19 07:48 Dose: 150 mg Documented by: Senna/Docusate Sodium (Senokot-S, Susy-Colace) 2 tablet PO BID PRN PRN PRN Reason: Constipation Sodium Chloride () 10 - 40 ml IV UD PRN PRN Reason: SALINE FLUSH Last Admin: 07/05/19 06:43 Dose: 20 ml Documented by: Inpatient E&M: [id number] Disch Hosp
--- NOTE | 2019-07-05 13:39 | CASEMGMT ---
Patient needs a ride home. He normally uses [facility], but the secretary office clerk called them and they have no availability for today. She also called [facility], but they had no availability. COLLEEN called [facility] and left a message for Brady. COLLEEN also called [facility]. They will check to see if they can bill Medicaid since it is a hospital d/c and they will also check their weight limit. Patient is 422 lbs and he has a power wheelchair. She will call COLLEEN back. Nunu HENRY MSW
--- NOTE | 2019-07-05 13:44 | NURSING ---
wound photo: left foot
--- NOTE | 2019-07-05 14:23 | CASEMGMT ---
COLLEEN received a call from [employer] and patient exceeds their weight limit. COLLEEN called [employer] and spoke with Brady and he had no availability today. COLLEEN called [employer] and they are closed due to COVID-19. COLLEEN called [facility] [employer] and they do not bill insurance. However, she told SW to call Yoli at [facility] as she could assist in getting insurance billed. COLLEEN called Yoli at [facility] and left her a voice mail requesting a return call. COLLEEN called patient's [employer] Contracts Administrator, Nuris Gomez and left her a voice mail. COLLEEN called [facility] [employer] again and the gentleman said he would check on availability and get back with COLLEEN. In the meantime COLLEEN received a return call from Yoli at [facility] and she said she can call [place] [employer] to see if they happen to have availability. She will call COLLEEN back. Nunu WALLER
--- NOTE | 2019-07-05 15:15 | CASEMGMT ---
SW received a call from [facility] and [facility] can [facility] patient today at 6p. They have transported patient before so his weight is not an issue. SW notified RN, patient, charge entry clerk, and secretary of police. Nunu HENRY MSW
[2019-07-05 16:55] LABS: Bedside Glucose 141 mg/dL (70-110)
[2019-07-05 17:33] VITALS: BP 154/70; PULSE 74; RESP 18; TEMP 36.1; O2SAT 97
--- NOTE | 2019-07-06 14:39 | CASEMGMT ---
Katrin [facility] notified of pt discharge and that new [facility] set up d/t IV antibx needed. Babak BATES CM
--- NOTE | 2019-07-06 15:13 | CASEMGMT ---
JANA LOPEZ Discharge Follow-up Phone Call: GABE: Marlon Strata: 3 Call Date: 07/05/2019 Discharge Date: 07/05/2019 Time of Call: 1515 Duration: 5 min Admitting Diagnosis: Diabetic foot infection JANA LOPEZ completed follow-up phone calll after recent hospitalization. Patient states he is doing well and completing his IV ATBs. He is getting ready to setup his transport for follow-up appts. Patient states his friend has picked up his prescriptions without any issues. Patient has follow-up appt with PCP on 07/10 and Security Professional 07/12. Patient had no further needs or concerns at this time.
== END 2019-07-05 17:28 | disposition home health service (06) | DRG 623 ==
LOC: ED 14:13 → PCU 14:52
PROVIDERS: Anesthesiology; Family Medicine; Physician Assistant; Podiatrist; Admitting Provider Hospitalist; Emergency Provider Emergency Medicine; PCP Family Medicine; Visit Provider Student in an Organized Health Care Education/Training Program
PROC: 0QBP0ZX Excision of Left Metatarsal, Open Approach, Diagnostic (ICD-10-PCS; principal; 2019-07-01 13:20)
DX: E11.621 Type 2 diabetes mellitus with foot ulcer (principal); L03.116 Cellulitis of left lower limb; M86.8X6 Other osteomyelitis, lower leg; Z68.43 Body mass index [BMI] 50.0-59.9, adult; L97.412 Non-pressure chronic ulcer of right heel and midfoot with fat layer exposed; L97.822 Non-pressure chronic ulcer of other part of left lower leg with fat layer exposed; L97.812 Non-pressure chronic ulcer of other part of right lower leg with fat layer exposed; E11.69 Type 2 diabetes mellitus with other specified complication; B96.20 Unspecified Escherichia coli [E. coli] as the cause of diseases classified elsewhere; B96.5 Pseudomonas (aeruginosa) (mallei) (pseudomallei) as the cause of diseases classified elsewhere; B95.62 Methicillin resistant Staphylococcus aureus infection as the cause of diseases classified elsewhere; I12.9 Hypertensive chronic kidney disease with stage 1 through stage 4 chronic kidney disease, or unspecified chronic kidney disease; N17.9 Acute kidney failure, unspecified; B95.0 Streptococcus, group A, as the cause of diseases classified elsewhere; B96.89 Other specified bacterial agents as the cause of diseases classified elsewhere; I87.2 Venous insufficiency (chronic) (peripheral); E11.42 Type 2 diabetes mellitus with diabetic polyneuropathy; E11.22 Type 2 diabetes mellitus with diabetic chronic kidney disease; E11.51 Type 2 diabetes mellitus with diabetic peripheral angiopathy without gangrene; I89.0 Lymphedema, not elsewhere classified; L97.523 Non-pressure chronic ulcer of other part of left foot with necrosis of muscle; N18.3 Chronic kidney disease, stage 3 (moderate); Z89.432 Acquired absence of left foot; D50.9 Iron deficiency anemia, unspecified; D63.8 Anemia in other chronic diseases classified elsewhere; E66.01 Morbid (severe) obesity due to excess calories; R19.7 Diarrhea, unspecified; L97.512 Non-pressure chronic ulcer of other part of right foot with fat layer exposed
CPT/HCPCS: 11042; 11045; 36415; 36569; 71045; 73630; 73718; 76000; 80048; 80202; 82962; 83036; 83540; 83550; 84443; 85014; 85018; 85025; 85610; 85652; 85730; 86140; 87015; 87040; 87070; 87075; 87077; 87102; 87116; 87186; 87205; 87206; 87493; 87640; 88304; 88305; 88311; 93005; 96365; 97110; 97162; 97530; 99251; 99285; J7030; J7040; J7050; A4216; G0463

== ENCOUNTER 2019-07-11 14:38 | Inpatient (IN) | payer MEDICARE, MEDICAID, SELFPAY ==
[2019-07-01 11:26] VITALS: BMI 50.1
[2019-07-11 14:39] VITALS: BP 124/88; PULSE 88; RESP 16; TEMP 36.2; O2SAT 97; BMI 50.1
--- NOTE | 2019-07-11 15:15 | EKG12_ITS ---
Test Reason : Blood Pressure : / mmHG Vent. Rate : 086 BPM Atrial Rate : 086 BPM P-R Int : 186 ms QRS Dur : 100 ms QT Int : 380 ms P-R-T Axes : 033 000 052 degrees QTc Int : 454 ms Normal sinus rhythm Low voltage QRS Borderline ECG Confirmed by LACI AQUINO ([id number]), news copy editor PADDY ZARATE ([id number]) on 07/18/2019 2:55:01 PM Referred By: COLETTE Confirmed By:LACI AQUINO
--- NOTE | 2019-07-11 15:16 | ED.VIS.GEN ---
History of Present Illness Chief Complaint: Abn Labs Narrative: This patient is a 64-year-old male who was sent in due to kidney shutting down. Patient was recently hospitalized for diabetic foot infection. He was found to have osteomyelitis on MRI. He underwent an I&D and bone biopsy of by dietary. They were discussing that the next step may be amputation however they were not at this point yet. Patient does have a PICC line and is getting IV cefepime and vancomycin. He has noticed that he has been urinating less the last couple of days. He had labs drawn this morning and was called by his home health nurse and told he needed to go to the emergency department because his kidneys were shutting down. Patient did urinate 200 mL of white-yellow urine shortly before presentation here. He did vomit in route here to the emergency department but had not otherwise recently been nauseated. At this time he denies any pain. He has no difficulty breathing. He does have some productive cough however states this is chronic and not really new symptom. No fevers that he is aware of. Past Medical History - Allergies and Home Meds Allergies/Adverse Reactions: Allergies ciprofloxacin [From Cipro] Allergy (Verified 06/29/19 11:34) Rash he has tolerated oral cipro in the past levofloxacin [From Levaquin] Allergy (Verified 06/29/19 11:34) Hives Penicillins Allergy (Verified 06/29/19 11:34) Hives silver Allergy (Verified 06/29/19 11:34) Rash Skin márquez and itches, rash Primary Care Physician: Ac Felix MD [Primary Care Provider] - Past Medical History: - - Obesity, diabetes, hypertension, hyperlipidemia, chronic kidney disease, peripheral vascular disease Surgical History: - - history of b/l great toe amputations, partial left little toe amputation, heel debridements and calcaneus bone biopsy Smoking Status: Never smoker - Family History Maternal Family History: Reports: Diabetes, Hypertension Paternal Family History: Reports: - - from being hit by car Review of Systems All systems negative except as indicated General: Denies: Fever Eyes: Denies: Visual changes - bilaterally ENT: Denies: Bilateral ear pain Cardiovascular: Denies: Chest pain Respiratory: Denies: Dyspnea Gastrointestinal: Reports: Nausea, Vomiting, Constipation. Denies: Abdominal pain, Diarrhea Genitourinary: Denies: Dysuria Musculoskeletal: Denies: Myalgias, Arthralgias Skin: Denies: Rash Neurological: Denies: Headache Allergy: Denies: Uticaria Physical Exam Vital Signs/Narrative: Vital Signs Temp Pulse Resp BP Pulse Ox 07/11/19 14:39 97.1 F L 88 16 124/88 H 97 Inital Vital Signs reviewed: Yes General: Well nourished, Well developed Head: Normocephalic Eyes: EOMI ENT: Moist mucous membranes Neck: Supple Cardiovascular: Regular rate, Regular rhythm Respiratory: No distress, CTA bilaterally Abdomen: Soft, Nontender Extremities: - - Bilateral lower extremities in dressings Skin: Normal color Neurological: Alert Psychological: Normal affect Diagnostic/Tx/Re-eval Laboratory Results 07/11/19 07/11/19 15:50 15:50 WBC 11.3 H RBC 3.58 L Hgb 9.4 L Hct 30.6 L MCV 85.5 MCH 26.3 L MCHC 30.7 L RDW Std Deviation 51.2 H RDW Coeff of Pool 16.7 H Plt Count 352 MPV 10.0 Immature Gran % (Auto) 1.700 H Neut % (Auto) 69.3 Lymph % (Auto) 14.0 L [place] % (Auto) 10.2 H Eos % (Auto) 4.1 Baso % (Auto) 0.7 Absolute Neuts (auto) 7.8 H Absolute Lymphs (auto) 1.58 Nucleated RBC % 0 Sodium 137 Potassium 5.3 H Chloride 109 H Carbon Dioxide 17.0 L Anion Gap 11 BUN 80 H Creatinine 5.81 H Estim Creat Clear Calc 16.19 Est GFR (MDRD) Af Amer 13 L Est GFR (MDRD) Non-Af 11 L BUN/Creatinine Ratio 13.8 Glucose 201 H Calcium 9.4 - Medical Decision Making Labs as above notable for acute kidney injury on chronic kidney disease. BUN is 80 with a creatinine of 5.8 which is significantly increased from recent labs. He was given IV fluids. He will require hospitalization. He had a mild hyperkalemia potassium of 5.3 but EKG shows no hyperkalemic changes. EKG shows normal sinus rhythm at a rate of 86. Patient will be discussed with the hospitalist and admitted. ED Disposition - Plan for ED Patient: Disposition: Acute Care Hospital [facility] Diagnosis: Acute kidney injury superimposed on CKD Referrals: Ac Felix MD [Primary Care Provider] -
[2019-07-11 16:02] LABS: Absolute Lymphocyte Count 1.58 X10^3/uL (0.83-4.51); Absolute Neutrophil Count 7.8 X10^3/uL (2.0-7.7); Basophil# 0.08 X10^3/uL; Basophil% 0.7 % (0-1); Eosinophil# 0.46 X10^3/uL; Eosinophils% 4.1 % (0-5); Hematocrit 30.6 % (40-54); Hemoglobin 9.4 g/dL (13.0-16.5); Lymphocyte # 1.58 X10^3/ul (4.0); Mean Corp Hgb Conc 30.7 g/dL (32-36); Mean Corpuscular Hgb 26.3 pg (27.0-32.0); Mean Corpuscular Volume 85.5 fL (80-94); Monocyte# 1.15 X10^3/uL; Monocyte% 10.2 % (0-10); NRBC Flagged by Analyzer 0 % (0-5); Neutrophil # 7.79 X10^3/uL (2.7-7.7); Neutrophil % 69.3 % (47-70); Platelet Count 352 K/mm3 (150-450); RBC Distribution Width CV 16.7 % (11.6-14.6); RBC Distribution Width SD 51.2 fl (35.1-43.9); Red Blood Count 3.58 M/mm3 (4.6-6.2); White Blood Count 11.3 K/mm3 (4.4-11.0)
[2019-07-11 16:14] LABS: Anion Gap 11 (5-15); BUN 80 mg/dL (7-18); BUN/Creat Ratio 13.8 RATIO (10-20); Calcium,Total 9.4 mg/dL (8.5-10.1); Chloride 109 mmol/L (98-107); Creatinine, Serum 5.81 mg/dL (0.70-1.30); EST Glomerular Filtration Rate 11 mL/min (>60); Est Glom Filt Rate - Afr Amer 13 mL/min (>60); Estimated Creatinine Clearance 16.19 ml/min; Glucose 201 mg/dL (74-106); Potassium 5.3 mmol/L (3.5-5.1); Sodium Level 137 mmol/L (136-145)
[2019-07-11 16:49] VITALS: BP 167/54; PULSE 87; RESP 16; TEMP 36.3; O2SAT 97
[2019-07-11] MEDS: 0.9% Normal Saline 1,000 ML 999 ML IV (16:54)
[2019-07-11 16:55] VITALS: BP 167/54; PULSE 80; RESP 20; TEMP 36.3; O2SAT 97
[2019-07-11 17:01] VITALS: BP 154/51; PULSE 84; RESP 16; TEMP 36.3; O2SAT 98
--- NOTE | 2019-07-11 18:06 | HP.PCM_ITS ---
History of Present Illness Date of Admission: 07/11/19 Chief Complaint: Abnormal labs The patient is a 64 year old M with a PMH as below who presents from home after he had labs drawn by his home health nurse today for monitoring his antibiotics. He was recently discharged with osteomyelitis and was on cefepime and vancomycin and today when he had his labs drawn his creatinine was found to be over 5 where his baseline creatinine is generally around 1.6. He has noticed that he has not had much intake or at least not his normal amount of intake and his urine has been dark recently. He has no other issues, denies any chest pain, shortness of breath, diarrhea, lightheadedness or dizziness. He was disch arged with Flagyl, not for C. difficile but for anaerobic cocci in his previous wound culture. Past Medical History Past Medical History (Chronic Problems): Chronic Problems Chronic ulcer of left foot with necrosis of muscle (Chronic) Acute kidney injury superimposed on CKD (Chronic) Lymphedema (Chronic) Venous insufficiency (Chronic) Peripheral vascular disease (Chronic) Tinea unguium (Chronic) Chronic ulcer of left foot with fat layer exposed (Chronic) Burn of leg (Chronic) Hammer toe of right foot (Chronic) Walking difficulty due to ankle and foot (Chronic) Obesity (Chronic) Type 2 diabetes mellitus with diabetic polyneuropathy (Chronic) Ulcer of left lower extremity with fat layer exposed (Chronic) Chronic ulcer of left foot with fat layer exposed (Chronic) Ulcer of right foot with fat layer exposed (Chronic) Ulcer of right lower extremity with fat layer exposed (Chronic) Ulcer of right lower extremity with fat layer exposed (Chronic) Chronic ulcer of left foot with fat layer exposed (Chronic) Dehiscence of amputation stump (Chronic) Type 2 diabetes mellitus with diabetic polyneuropathy (Chronic) Non-pressure chronic ulcer of right heel and midfoot with fat layer exposed (Chronic) Obesity (Chronic) Diabetes mellitus with polyneuropathy (Chronic) Non-pressure chronic ulcer of right heel and midfoot with necrosis of muscle (Chronic) Diabetic foot ulcer (Chronic) Osteomyelitis of foot (Chronic) Ulcer of right heel and midfoot with fat layer exposed (Chronic) Chronic ulcer of left foot with necrosis of muscle (Chronic) Allergies ciprofloxacin [From Cipro] Allergy (Verified 06/29/19 11:34) Rash he has tolerated oral cipro in the past levofloxacin [From Levaquin] Allergy (Verified 06/29/19 11:34) Hives Penicillins Allergy (Verified 06/29/19 11:34) Hives silver Allergy (Verified 06/29/19 11:34) Rash Skin márquez and itches, rash Home Medications: Ambulatory Orders Medication Instructions Recorded Lisinopril [Zestril] 10 mg PO DAILY 06/04/17 Metoprolol(XL)Succ [Toprol Xl 50 mg PO DAILY 06/04/17 (Beta Marshall)] Furosemide 40 mg PO DAILY #0 05/05/19 Insulin Regular, Human [Novolin R] 30 unit SQ TID #0 05/05/19 Insulin NPH Human Isophane 40 unit SQ QHS 06/29/19 [Novolin N Flexpen] hydrALAZINE [Apresoline] 50 mg PO BID 06/29/19 Amlodipine Besylate [Norvasc] 10 mg PO DAILY 07/11/19 Cefepime HCl [Maxipime] 2 gm IV Q8 07/11/19 Lactobacillus Acidophilus 1 tab PO BID 07/11/19 [Acidophilus] Vancomycin IV 1,250 mg IV Q24H 07/11/19 Surgical History: - - history of b/l great toe amputations, partial left little toe amputation, heel debridements and calcaneus bone biopsy Psychiatric History: No pertinent psych hx Smoking Status: Never smoker Alcohol: None Drugs: None - *Family History Maternal History Items: Diabetes, Hypertension Paternal History Items: - - from being hit by car Review of Systems Constitutional: Denies: Chills, Fever, Weight Change HEENT: Denies: Head Aches, Sinus Congestion, Sinus Drainage Cardiovascular: Denies: Chest Pain, Palpitations Respiratory: Denies: Cough, Shortness of breath at rest, Sputum production Gastrointestinal: Denies: Abdominal Pain, Nausea, Vomiting Genitourinary: Denies: Dysuria Musculoskeletal: Denies: Joint Pain, Joint Tenderness Skin: Reports: Wounds - Diabetic wounds on both his legs currently being treated. Denies: Rash Neurological: Denies: Numbness, Tingling, Focal weakness Psychiatric: Denies: Anxiety, Depression Hematologic/ Lymphatic: Denies: Easy Bruising, Easy Bleeding VTE Information - Inpt Only VTE Present on Admission: No - Physical Exam Vitals/I&O's: Vital Signs Temp Pulse Resp BP Pulse Ox 97.4 F L 84 16 154/51 H 98 04/27/20 17:01 07/11/19 17:01 07/11/19 17:01 07/11/19 17:01 07/11/19 17:01 Oxygen Delivery Method Room Air Weight: 422 lb 12.8 oz Body Mass Index (BMI) 50.1 Finger Stick Blood Glucose 222 General: Alert, Oriented x3, Cooperative, No apparent distress HEENT: Atraumatic, PERRLA, EOMI, Normocephalic Oral: Dry Mucosa Neck: Supple, No JVD Lungs: Clear to auscultation, Normal air movement, No rhonchi, No wheeze, No rales, Diminished Cardiovascular: Regular rate, Regular Rhythm, Normal S1, Normal S2, No murmurs Abdomen: Soft, Non Tender, Non-Distended, No Hepato-splenomegaly Extremities: Capillary Refill Less than 3 Seconds, Edema - Bilateral lymphedema Skin: No rashes, No breakdown, Ulcer/ Wound - Bilateral diabetic wounds, - - Bilateral stasis dermatitis Neurological: Neuro grossly intact, Sensory exam intact to light touch and pain Psych/Mental Status: Normal Affect, Appropriate Laboratory Results 07/11/19 15:50: WBC 11.3 H, RBC 3.58 L, Hgb 9.4 L, Hct 30.6 L, MCV 85.5, MCH 26.3 L, MCHC 30.7 L, RDW Std Deviation 51.2 H, RDW Coeff of Pool 16.7 H, Plt Count 352, MPV 10.0, Immature Gran % (Auto) 1.700 H, Neut % (Auto) 69.3, Lymph % (Auto) 14.0 L, [place] % (Auto) 10.2 H, Eos % (Auto) 4.1, Baso % (Auto) 0.7, Absolute Neuts (auto) 7.8 H, Absolute Lymphs (auto) 1.58, Nucleated RBC % 0 07/11/19 15:50: Sodium 137, Potassium 5.3 H, Chloride 109 H, Carbon Dioxide 17.0 L, Anion Gap 11, BUN 80 H, Creatinine 5.81 H, Estim Creat Clear Calc 16.19, Est GFR (MDRD) Af Amer 13 L, Est GFR (MDRD) Non-Af 11 L, BUN/Creatinine Ratio 13.8, Glucose 201 H, Calcium 9.4 Assessment/Plan All Active Problems Diabetic foot infection (Acute) 1. Acute renal failure secondary to medications and dehydration/osteomyelitis of the left fifth metatarsal -We will stop his Lasix and his lisinopril, and adjust dosing as vancomycin, continue with his cefepime and Flagyl -No need to reculture at the moment -Continue with IV fluids and reassess the kidneys in the morning -If there is significant improvement then we will likely cut back the dosages of some of his medication -Baseline creatinine is around 1.6, today on admission his creatinine is 5.81 -Cultures from his previous wound on June 29, 2019 grew E. coli, Pseudomonas, MRSA, corynebacterium, Streptococcus group A, and anaerobic cocci 2. IDDM 2/CKD 3 anemia of chronic disease -Place him on a 2000-calorie diet and continue with his home insulin dosage make adjustments as necessary -A1c in his most recent admission was elevated to 8.2 -Continue with sliding scale insulin and Accu-Cheks AC at bedtime -Hemoglobin is stable at 9.4, will continue to monitor baseline appears to be around 9 3. HTN/HLD/chronic lymphedema and venous insufficiency -We will hold his Lasix -Blood pressures are stable, will hold his lisinopril -We will continue with his Norvasc and transition his metoprolol to Coreg to better help his blood pressure will also continue with hydralazine DVT: Heparin Inpatient E&M: 52514 Init Hosp L3
[2019-07-11 18:20] VITALS: BP 117/44; PULSE 91; RESP 16; TEMP 36.5; O2SAT 98; BMI 46.5; BMI 46.6
--- NOTE | 2019-07-11 20:19 | NURSING ---
pharmacy notified that IV meds on hold at this time until PICC can be used. notified- awaiting order
--- NOTE | 2019-07-11 21:57 | NURSING ---
banquet chef called to trouble shoot picc line not having blood return. They suggested getting chest xray to confirm placement then determine if tpa needed. Dr Petty called for order. New order received
[2019-07-11] MEDS: 0.9% Saline Lock 10 ML Syringe IV (21:58)
[2019-07-11] MEDS: Insulin NPH Human 100 UNITS/ML PEN 40 UNITS SC (22:00)
[2019-07-11] MEDS: Insulin Lispro 100 UNIT/ML INSULN.PEN SC (22:02)
[2019-07-11 22:04] VITALS: PULSE 92
[2019-07-11] MEDS: Carvedilol 3.125 MG TABLET PO (22:04)
[2019-07-11] MEDS: metroNIDAZOLE 500 MG Tablet PO (22:04)
[2019-07-11] MEDS: hydrALAZINE 50 MG Tablet PO (22:04)
[2019-07-11] MEDS: Heparin Injection (Vial) 5,000 UNIT/ML VIAL 5000 UNIT SC (22:04)
--- NOTE | 2019-07-11 22:06 | RAD_ITS ---
STUDY: X-RAY CHEST REASON FOR EXAM: Male, 64 years old. PICC LINE PLACEMENT TECHNIQUE: Single AP portable view of the chest. COMPARISON: 06/29/2019. FINDINGS: There is a right-sided PICC line with the tip in the distal SVC. There is decreased inspiratory effort with mild vascular crowding, cannot exclude mild vascular congestion. There is no demonstrated pleural abnormality. There is borderline cardiomegaly. Normal mediastinum and milagros. Normal visualized pulmonary arteries. Normal visualized aortic arch and descending thoracic aorta. Normal visualized thoracic spine. Normal visualized ribs, clavicles, and shoulders. There is no demonstrated abnormality of the visualized soft tissue structures of the upper abdomen. RAD/CXR for Line Placement IMPRESSION: Decreased inspiration with vascular crowding versus mild vascular congestion. Electronically Signed: Lisette Bell MD at 0:22 EDT , Service support ,
[2019-07-11] MEDS: Cefepime HCl 2 GM in 0.9% NS 100 ML Minibag Q12 IV (23:47)
[2019-07-11] MEDS: 0.9% Normal Saline 1,000 ML 125 ML IV (23:47)
[2019-07-12] VITALS (8 sets, daily range): BP systolic 138–151; BP diastolic 47–76; PULSE 60–80; RESP 16–18; TEMP 36.5–36.8; O2SAT 95–97
[2019-07-12 00:36] LABS: Bedside Glucose 199 mg/dL (70-110)
[2019-07-12] MEDS: 0.9% Saline Lock 10 ML Syringe IV ×2 (04:18→10:38)
[2019-07-12] MEDS: Alteplase 2 MG/2 ML Vial IV (04:18)
[2019-07-12 05:49] LABS: Absolute Lymphocyte Count 1.32 X10^3/uL (0.83-4.51); Absolute Neutrophil Count 4.4 X10^3/uL (2.0-7.7); Basophil# 0.05 X10^3/uL; Basophil% 0.7 % (0-1); Eosinophil# 0.28 X10^3/uL; Hematocrit 25.4 % (40-54); Hemoglobin 7.9 g/dL (13.0-16.5); Lymphocyte # 1.32 X10^3/ul (4.0); Lymphocyte % 18.6 % (19-41); Mean Corp Hgb Conc 31.1 g/dL (32-36); Mean Corpuscular Hgb 26.3 pg (27.0-32.0); Mean Corpuscular Volume 84.7 fL (80-94); Mean Platelet Vol. 9.8 fl (6.2-12.0); Monocyte# 0.89 X10^3/uL; Monocyte% 12.6 % (0-10); NRBC Flagged by Analyzer 0 % (0-5); Neutrophil # 4.44 X10^3/uL (2.7-7.7); Neutrophil % 62.7 % (47-70); Platelet Count 265 K/mm3 (150-450); RBC Distribution Width CV 16.6 % (11.6-14.6); RBC Distribution Width SD 51.2 fl (35.1-43.9); White Blood Count 7.1 K/mm3 (4.4-11.0)
[2019-07-12 06:12] LABS: Anion Gap 8 (5-15); BUN 77 mg/dL (7-18); BUN/Creat Ratio 13.8 RATIO (10-20); Calcium,Total 8.4 mg/dL (8.5-10.1); Chloride 110 mmol/L (98-107); EST Glomerular Filtration Rate 11 mL/min (>60); Est Glom Filt Rate - Afr Amer 13 mL/min (>60); Estimated Creatinine Clearance 16.79 ml/min; Glucose 169 mg/dL (74-106); Potassium 5.2 mmol/L (3.5-5.1); Sodium Level 137 mmol/L (136-145)
[2019-07-12] MEDS: Insulin Lispro 100 UNIT/ML INSULN.PEN SC (06:22)
[2019-07-12] MEDS: metroNIDAZOLE 500 MG Tablet PO ×3 (06:22→21:25)
[2019-07-12] MEDS: Heparin Injection (Vial) 5,000 UNIT/ML VIAL 5000 UNIT SC ×3 (06:23→21:24)
[2019-07-12 06:51] LABS: Bedside Glucose 158 mg/dL (70-110)
--- NOTE | 2019-07-12 08:09 | PCM.PN.HOSP ---
Subjective: Doing well, no issues overnight. Says that he is feeling a little bit better and he made more urine yesterday. Vitals/I&O's: Vital Signs Temp Pulse Resp BP Pulse Ox 98.2 F 65 16 138/76 H 97 07/12/19 06:30 07/12/19 06:30 07/12/19 06:30 07/12/19 06:30 07/12/19 06:30 Oxygen Delivery Method Room Air Weight: 393 lb Body Mass Index (BMI) 46.5 Finger Stick Blood Glucose 222 Intake and Output for Last 24 Hours 07/10/19 07/11/19 07/12/19 23:59 23:59 23:59 Intake Total 1000 / 1500 2683.75 / 2683.75 Output Total 1650 / 1650 Balance 1000 / 775 1033.75 / 1033.75 General: Alert, Oriented x3, Cooperative, No apparent distress HEENT: Atraumatic, PERRLA, EOMI, Normocephalic Oral: Dry Mucosa Neck: Supple, No JVD Lungs: Clear to auscultation, Normal air movement, No rhonchi, No wheeze, No rales, Diminished Cardiovascular: Regular rate, Regular Rhythm, Normal S1, Normal S2, No murmurs Abdomen: Soft, Non Tender, Non-Distended, No Hepato-splenomegaly Extremities: Capillary Refill Less than 3 Seconds, Edema - Bilateral lymphedema Skin: No rashes, No breakdown, Ulcer/ Wound - Bilateral diabetic wounds, - - Bilateral stasis dermatitis Neurological: Neuro grossly intact, Sensory exam intact to light touch and pain Psych/Mental Status: Normal Affect, Appropriate Laboratory Results 07/11/19 15:50: WBC 11.3 H, RBC 3.58 L, Hgb 9.4 L, Hct 30.6 L, MCV 85.5, MCH 26.3 L, MCHC 30.7 L, RDW Std Deviation 51.2 H, RDW Coeff of Pool 16.7 H, Plt Count 352, MPV 10.0, Immature Gran % (Auto) 1.700 H, Neut % (Auto) 69.3, Lymph % (Auto) 14.0 L, [place] % (Auto) 10.2 H, Eos % (Auto) 4.1, Baso % (Auto) 0.7, Absolute Neuts (auto) 7.8 H, Absolute Lymphs (auto) 1.58, Nucleated RBC % 0 07/11/19 15:50: Sodium 137, Potassium 5.3 H, Chloride 109 H, Carbon Dioxide 17.0 L, Anion Gap 11, BUN 80 H, Creatinine 5.81 H, Estim Creat Clear Calc 16.19, Est GFR (MDRD) Af Amer 13 L, Est GFR (MDRD) Non-Af 11 L, BUN/Creatinine Ratio 13.8, Glucose 201 H, Calcium 9.4 07/11/19 22:01: POC Glucose 199 H 07/12/19 05:32: WBC 7.1, RBC 3.00 L, Hgb 7.9 L, Hct 25.4 L, MCV 84.7, MCH 26.3 L, MCHC 31.1 L, RDW Std Deviation 51.2 H, RDW Coeff of Pool 16.6 H, Plt Count 265, MPV 9.8, Immature Gran % (Auto) 1.400 H, Neut % (Auto) 62.7, Lymph % (Auto) 18.6 L, [place] % (Auto) 12.6 H, Eos % (Auto) 4.0, Baso % (Auto) 0.7, Absolute Neuts (auto) 4.4, Absolute Lymphs (auto) 1.32, Nucleated RBC % 0 07/12/19 05:32: Sodium 137, Potassium 5.2 H, Chloride 110 H, Carbon Dioxide 19.0 L, Anion Gap 8, BUN 77 H, Creatinine 5.60 H, Estim Creat Clear Calc 16.79, Est GFR (MDRD) Af Amer 13 L, Est GFR (MDRD) Non-Af 11 L, BUN/Creatinine Ratio 13.8, Glucose 169 H, Calcium 8.4 L 07/12/19 06:22: POC Glucose 158 H Current Medications Amlodipine Besylate (Norvasc) 10 mg PO DAILY [facility] Carvedilol (Coreg) 3.125 mg PO BID [facility] Last Admin: 07/11/19 22:04 Dose: 3.125 mg Documented by: Dextrose (D50w Syringe) 0 gm IV X1 PRN; Protocol PRN Reason: Hypoglycemia Glucagon () 1 mg IM .X1 PRN PRN Reason: Hypoglycemia Heparin Sodium (Porcine) (Heparin Na) 5,000 unit SC Q8 [facility] Last Admin: 07/12/19 06:23 Dose: 5,000 unit Documented by: Hydralazine HCl (Apresoline) 50 mg PO BID [facility] Last Admin: 07/11/19 22:04 Dose: 50 mg Documented by: Sodium Chloride () 1,000 mls @ 125 mls/hr IV .Q8H [facility] Last Infusion: 07/12/19 06:32 Dose: 0 mls/hr Documented by: Vancomycin IV Pharmacy to Dose (1 ea/ Sodium Chloride) 500 mls @ 250 mls/hr IV X1 PRN; Protocol PRN Reason: Rx to Dose Sodium Chloride () 250 mls @ 15 mls/hr IV .[id number] PRN PRN Reason: Saline Flush Cefepime HCl 2 gm/ Sodium (Chloride) 100 mls @ 200 mls/hr IV Q24H [facility] Last Infusion: 07/12/19 00:21 Dose: Infused Documented by: Insulin Human Lispro (Humalog Kwikpen (Bkc)) 0 unit SC ACHS [facility]; Protocol Last Admin: 07/12/19 06:22 Dose: 2 u Documented by: Insulin Human Lispro (Humalog Kwikpen (Bkc)) 30 unit SC 0800,1200,1700 [facility] Insulin Human NPH (Humulin N (Bkc)) 40 units SC QHS [facility] Last Admin: 07/11/19 22:00 Dose: 40 u Documented by: Melatonin (Melatonin) 3 mg PO QHS PRN PRN PRN Reason: INSOMNIA Metronidazole (Flagyl) 500 mg PO TID [facility] Last Admin: 07/12/19 06:22 Dose: 500 mg Documented by: Nutritional Formula (Lactose Free) (Glucerna Shake) 120 ml PO TIDCM [facility] Sodium Chloride () 10 - 40 ml IV UD PRN PRN Reason: SALINE FLUSH Last Admin: 07/12/19 04:18 Dose: 10 ml Documented by: STROKE Vital Signs/Narrative: Vital Signs Temp Pulse Resp BP Pulse Ox 07/12/19 06:30 98.2 F 65 16 138/76 H 97 Medical Necessity - Tobacco Use Smoking Status: Never smoker Assessment/Plan All Active Problems Diabetic foot infection (Acute) 1. Acute renal failure secondary to medications and dehydration/osteomyelitis of the left fifth metatarsal -We will stop his Lasix and his lisinopril, and adjust dosing of vancomycin, continue with his cefepime and Flagyl -No need to reculture at the moment -Continue with IV fluids -If there is significant improvement then we will likely cut back the dosages of some of his medication -Baseline creatinine is around 1.6, today on admission his creatinine is 5.81 down to 5.60, slow recovery indicates ATN potassium is down to 5.2 -Will obtain urine electrolytes -Cultures from his previous wound on June 29, 2019 grew E. coli, Pseudomonas, MRSA, corynebacterium, Streptococcus group A, and anaerobic cocci 2. IDDM 2/CKD 3 anemia of chronic disease -Place him on a 2000-calorie diet and continue with his home insulin dosage make adjustments as necessary -A1c in his most recent admission was elevated to 8.2 -Continue with sliding scale insulin and Accu-Cheks AC at bedtime -Hemoglobin is stable at 9.4, will continue to monitor baseline appears to be around 9 3. HTN/HLD/chronic lymphedema and venous insufficiency -We will hold his Lasix -Blood pressures are stable, will hold his lisinopril -We will continue with his Norvasc and transition his metoprolol to Coreg to better help his blood pressure will also continue with hydralazine -We will try to increase the Coreg so that we can decrease the Norvasc which may help resolve his lymphedema DVT: Heparin Inpatient E&M: 76389 Subs Hosp L2
[2019-07-12] MEDS: Glucerna Shake 120 ML LIQUID PO ×2 (08:45→12:14)
[2019-07-12] MEDS: amLODIPine 10 MG Tablet PO (08:46)
[2019-07-12] MEDS: Carvedilol 3.125 MG TABLET PO ×2 (08:46→21:26)
[2019-07-12] MEDS: hydrALAZINE 50 MG Tablet PO ×2 (08:47→21:30)
[2019-07-12] MEDS: Insulin Lispro 100 UNIT/ML INSULN.PEN 30 UNIT SC (08:49)
[2019-07-12 09:33] LABS: Urine Chloride 85 mmol/L (Not Establ.); Urine Sodium 75 mmol/L (Not Establ.)
[2019-07-12 11:01] LABS: Vancomycin, Random Level 46.3 ug/mL (0.0-15.0)
[2019-07-12 11:01] LABS: Bedside Glucose 147 mg/dL (70-110)
--- NOTE | 2019-07-12 11:03 | CON.PCM_ITS ---
Problem List (1) Osteomyelitis of foot Status: Chronic Qualifiers: Laterality: right Reason for Consult: osteo Consulted by: Dr. Jarvis History of Present Illness: The patient is a 64 year old M with DM neuropathy, admission earlier this month for L foot osteo. Taken to OR 06/30 for I&D. Concern for nec fasc intra-op. Surg cx neg. Outpt wound cx 06/28 with GAS, ecoli, PsA, MRSA, coryne, and anae robes. Discharged on vanc/cefepime/flagyl via picc, stop date 08/12/19. Over past few days, not feeling well with some fatigue, nausea, poor appetite, and decreased UOP. Urine was dark. Labs by home health showed Cr over 5 and vanc trough over 40. I instructed him to go to ED. Feeling better today, making more urine. Foot doing ok, but reports new sores on his heel. - Medical History Past Medical History (Chronic Problems): Chronic Problems Chronic ulcer of left foot with necrosis of muscle (Chronic) Acute kidney injury superimposed on CKD (Chronic) Lymphedema (Chronic) Venous insufficiency (Chronic) Peripheral vascular disease (Chronic) Tinea unguium (Chronic) Chronic ulcer of left foot with fat layer exposed (Chronic) Burn of leg (Chronic) Hammer toe of right foot (Chronic) Walking difficulty due to ankle and foot (Chronic) Obesity (Chronic) Type 2 diabetes mellitus with diabetic polyneuropathy (Chronic) Ulcer of left lower extremity with fat layer exposed (Chronic) Chronic ulcer of left foot with fat layer exposed (Chronic) Ulcer of right foot with fat layer exposed (Chronic) Ulcer of right lower extremity with fat layer exposed (Chronic) Ulcer of right lower extremity with fat layer exposed (Chronic) Chronic ulcer of left foot with fat layer exposed (Chronic) Dehiscence of amputation stump (Chronic) Type 2 diabetes mellitus with diabetic polyneuropathy (Chronic) Non-pressure chronic ulcer of right heel and midfoot with fat layer exposed (Chronic) Obesity (Chronic) Diabetes mellitus with polyneuropathy (Chronic) Non-pressure chronic ulcer of right heel and midfoot with necrosis of muscle (Chronic) Diabetic foot ulcer (Chronic) Osteomyelitis of foot (Chronic) Ulcer of right heel and midfoot with fat layer exposed (Chronic) Chronic ulcer of left foot with necrosis of muscle (Chronic) Allergies/Adverse Reactions: Allergies ciprofloxacin [From Cipro] Allergy (Verified 06/29/19 11:34) Rash he has tolerated oral cipro in the past levofloxacin [From Levaquin] Allergy (Verified 06/29/19 11:34) Hives Penicillins Allergy (Verified 06/29/19 11:34) Hives silver Allergy (Verified 06/29/19 11:34) Rash Skin márquez and itches, rash Home Medications: Ambulatory Orders Medication Instructions Recorded Lisinopril [Zestril] 10 mg PO DAILY 06/04/17 Metoprolol(XL)Succ [Toprol Xl 50 mg PO DAILY 06/04/17 (Beta Marshall)] Furosemide 40 mg PO DAILY #0 05/05/19 Insulin Regular, Human [Novolin R] 30 unit SQ TID #0 05/05/19 Insulin NPH Human Isophane 40 unit SQ QHS 06/29/19 [Novolin N Flexpen] hydrALAZINE [Apresoline] 50 mg PO BID 06/29/19 Amlodipine Besylate [Norvasc] 10 mg PO DAILY 07/11/19 Cefepime HCl [Maxipime] 2 gm IV Q8 07/11/19 Lactobacillus Acidophilus 1 tab PO BID 07/11/19 [Acidophilus] Vancomycin IV 1,250 mg IV Q24H 07/11/19 - Social History SMOKING STATUS:: Never smoker Vital Signs Temp Pulse Resp BP Pulse Ox 97.7 F L 63 16 151/69 H 95 07/12/19 08:43 07/12/19 08:47 07/12/19 08:43 07/12/19 08:43 07/12/19 08:43 Oxygen Delivery Method Room Air Weight: 178.262 kg Body Mass Index (BMI) 46.5 Finger Stick Blood Glucose 222 Laboratory Tests Past 24 Hrs 07/11/19 07/11/19 07/12/19 15:50 15:50 05:32 WBC 11.3 H 7.1 RBC 3.58 L 3.00 L Hgb 9.4 L 7.9 L Hct 30.6 L 25.4 L MCV 85.5 84.7 MCH 26.3 L 26.3 L MCHC 30.7 L 31.1 L RDW Std Deviation 51.2 H 51.2 H RDW Coeff of Pool 16.7 H 16.6 H Plt Count 352 265 MPV 10.0 9.8 Immature Gran % (Auto) 1.700 H 1.400 H Neut % (Auto) 69.3 62.7 Lymph % (Auto) 14.0 L 18.6 L [place] % (Auto) 10.2 H 12.6 H Eos % (Auto) 4.1 4.0 Baso % (Auto) 0.7 0.7 Absolute Neuts (auto) 7.8 H 4.4 Absolute Lymphs (auto) 1.58 1.32 Nucleated RBC % 0 0 Eos Smear Total Cells Sodium 137 Potassium 5.3 H Chloride 109 H Carbon Dioxide 17.0 L Anion Gap 11 BUN 80 H Creatinine 5.81 H Estim Creat Clear Calc 16.19 Est GFR (MDRD) Af Amer 13 L Est GFR (MDRD) Non-Af 11 L BUN/Creatinine Ratio 13.8 Glucose 201 H Calcium 9.4 Ur Random Sodium Urine Potassium Urine Chloride Random Vancomycin 07/12/19 07/12/19 07/12/19 05:32 09:13 09:13 WBC RBC Hgb Hct MCV MCH MCHC RDW Std Deviation RDW Coeff of Pool Plt Count MPV Immature Gran % (Auto) Neut % (Auto) Lymph % (Auto) [place] % (Auto) Eos % (Auto) Baso % (Auto) Absolute Neuts (auto) Absolute Lymphs (auto) Nucleated RBC % Eos Smear Total Cells Pending Sodium 137 Potassium 5.2 H Chloride 110 H Carbon Dioxide 19.0 L Anion Gap 8 BUN 77 H Creatinine 5.60 H Estim Creat Clear Calc 16.79 Est GFR (MDRD) Af Amer 13 L Est GFR (MDRD) Non-Af 11 L BUN/Creatinine Ratio 13.8 Glucose 169 H Calcium 8.4 L Ur Random Sodium 75 Urine Potassium 37.0 Urine Chloride 85 Random Vancomycin 07/12/19 09:40 WBC RBC Hgb Hct MCV MCH MCHC RDW Std Deviation RDW Coeff of Pool Plt Count MPV Immature Gran % (Auto) Neut % (Auto) Lymph % (Auto) [place] % (Auto) Eos % (Auto) Baso % (Auto) Absolute Neuts (auto) Absolute Lymphs (auto) Nucleated RBC % Eos Smear Total Cells Sodium Potassium Chloride Carbon Dioxide Anion Gap BUN Creatinine Estim Creat Clear Calc Est GFR (MDRD) Af Amer Est GFR (MDRD) Non-Af BUN/Creatinine Ratio Glucose Calcium Ur Random Sodium Urine Potassium Urine Chloride Random Vancomycin 46.3 H - Other Studies Radiology: [] reviewed Other Studies: [] Route of nutrition/ use of supplements: [] Nutritional Intake: [] IV Site: [] Hernandez Catheter: [] - Physical Exam General: Alert, Oriented x3, Cooperative, No apparent distress HEENT: Atraumatic, PERRLA, EOMI Neck: Supple, No Nodes Lungs: Clear to auscultation, Normal air movement Cardiovascular: Regular rate, Regular Rhythm Abdomen: Soft, Non Tender, Non-Distended, Obese Extremities: Edema Skin: Ulcer/ Wound - BLE wrapped IV Site: PICC, without redness Musculoskeletal: No Tenderness to Palpation of Joints or Extremities Neurological: Cranial nerves II-XII grossly intact - Assessment/Plan Antibiotics: [] Assessment/Plan: [] L foot osteo with new JOANNA - had been on outpt iv vanc and cefepime with po flagyl. Outpt vanc trough over 40 yesterday. Did not get level here but did get another dose of vanc last night. Will check random level now. Decrease cefepime to 1gm q24h. Recommend checking urine eosinophils. Neph has been consulted. Will consult Dr. Hernández. If foot has worsened and he now has a serious complication while on iv abx, I think he would benefit from BKA sooner rather than later. Will follow, thank you, d/w Dr. Jarvis
--- NOTE | 2019-07-12 11:24 | NURSING ---
wound photo: left foot
--- NOTE | 2019-07-12 11:25 | NURSING ---
wound photo: right heel
--- NOTE | 2019-07-12 11:27 | NURSING ---
wound photo: right medial foot
--- NOTE | 2019-07-12 11:27 | NURSING ---
wound photo: left posterior heel
--- NOTE | 2019-07-12 11:43 | CASEMGMT ---
Social Work Note SW reviewed previous notes, pt has CM Nuris Fulton through [facility]. SW placed a call to Nuris and left message regarding pt's admission to [facility]. Emperatriz Aldana SURVEILLANCE SYSTEMS ENGINEER, PRESS WORKER HELPER
--- NOTE | 2019-07-12 12:45 | CASEMGMT ---
Social Work Note SW updated by RN CM that per [facility], pt's living conditions at home are not the best, pt has flies in his home, and pt is not taking his medications when scheduled. [facility] was going to make APS for pt. SW to continue to follow. If pt discharges back home, SW will follow up on APS referral. Emperatriz Aldana JUNIOR STAFF ACCOUNTANT, PESTICIDE APPLICATOR
[2019-07-12 13:31] LABS: Bacteria 0 SEEN /hpf (None Seen); Color, Urine Yellow (Yellow); Glucose, Dipstick Normal (Normal); Ketone-Dipstick Negative (Negative); Leukocyte Esterase-Dipstick Negative /ul (Negative); Mucous, Urine 0 SEEN /hpf (<or=2+); Nitrite-Dipstick Negative (Negative); Occult Blood-Urine 25 /ul (Negative); Protein-Dipstick 100 mg/dl (Negative); Urine Bilirubin Dipstick Negative (Negative); Urine Clarity Clear (Clear); Urine Urobilinogen Normal (Normal); White Blood Cells 0 SEEN /hpf (0-5)
--- NOTE | 2019-07-12 13:34 | CASEMGMT ---
RNCM Readmission Assessment Note: Admitted 06/29/19-07/05/2019 for Lt Diabetic foot infection. Dc'd with Home IVABX Vancomycin and Cefepime with oral Flagyl. [facility] for IVABX and Wound care. Patient was previously with Katrin [facility] for Wound care by ANTONIO prior to this switch d/t needing home IVABX. Scheduled PCP f/u with Dr Ac Felix 07/11/2019 at 1500 but patient unable to attend this f/u d/t returning to hospital this day. F/u scheduled with wound clinic on 07/13/2019. Patient was to call Dr Pompa and schedule an outpatient amputation. Re-Admitted on 07/11/2019 for Acute renal failure with osteomyelitis. States was compliant with taking his home medications. Patient states [place]- his land lord Butler lives approx 25ft from him and will help him with some tasks such as picking up medication, delivery of fire wood. He has Aides with [facility] Thursday/Thursday morning for 1hr with Niesha, Thursday afternoon with Nighat Disla 1hr on and Nighat 2hrs Thursday. Aides assist with bathing, house chores. Gets Groceries delivered from [employer] and [employer]. See RNCM Assessment on 06/30/2019 for further information. Patient states that he would like to return home with Aides and C KAMERON- ok with [facility] as issues have settled with them and has no 2nd [facility] preference on agency. States that Sanju did not like that he had a loaded shotgun next to his chair for protection since [place] the country but now it is kept at his neighbors home during the duration that he has C. States that he will have to resort to alternative knife for protection if someone were to break in. This pattern chart writer encouraged patient Half-Way Planning as he lives alone and should he require more help and not deemed safe at home. States his niece Samantha is his only family and she lives with her /family on 5 acres and has broached the topic of him living on her property before but will discuss further with her, states does not want to go to a fpc on discharge but if he could not live with his niece for LTP then he has been to [facility] and has liked them and that would be a possibility for LTP- patient has secondary MELANIE. Patient states that he has been in the process of remodeling his mobile home with Derick helping him but is taking time. Does state home is accessible inside and not clustered and kept descent. Did mention in conversation that former MAIL PROCESSOR Kya from [facility] disagreed with patient living conditions and Aide Nighat confronted Kya regarding her statements. This pattern chart writer informed by primary WENDY Ann [facility] mentioning to [facility] Wound nurse regarding patient home having flies and possible concern of living conditions also reported that patient was sleeping during the day and waking during the night and administering IVABX- possible cause to this admission for Acute renal failure. This pattern chart writer updated primary WENDY Ann and discussed that at time of DC if patient deemed unsafe for DC home than suggested a discussion with patient as he may be open to short term transition to [facility] as he disclosed being there in the past and liked it. Also, possible increase in [employer] hours for Aide assistance. WENDY Khanna
[2019-07-12 13:47] LABS: Red Blood Cells-Urine 0-5 SEEN /hpf (0-5); Squamous Epithelial Cells - UA 0-5 SEEN /hpf (0-5)
--- NOTE | 2019-07-12 15:41 | US_ITS ---
STUDY: RENAL ULTRASOUND - COMPLETE REASON FOR EXAM: Male, 64 years old. ARF TECHNIQUE: Ultrasound evaluation of the kidneys was performed with real-time and static dwyer-scale imaging. COMPARISON: None. FINDINGS: Limited by patient''s size. RIGHT KIDNEY: Normal location of the right kidney, which is normal in size. The right kidney measures 11.6 x 7.1 x 6.3 cm. There is a normal cortex of the right kidney. The renal cortex measures 2.3 cm. There is no right renal mass or cyst. There are no right renal calculi. There is no right hydronephrosis. DISTAL RIGHT URETER: There is non-visualization of the distal right ureter. There is no demonstrated right ureterovesical junction calculus. There is no demonstrated right ureteral jet. LEFT KIDNEY: Normal location of the left kidney, which is normal in size. The left kidney measures 12.5 x 5.6 x 6.3 cm. There is a normal cortex of the left kidney. The renal cortex measures 1.8 cm. There is no left renal mass or cyst. There are no left renal calculi. There is no left hydronephrosis. DISTAL LEFT URETER: There is non-visualization of the distal left ureter. There is no demonstrated left ureterovesical junction calculus. There is no demonstrated left ureteral jet. BLADDER: The distended urinary bladder has a volume of 378 ml. There is a normal wall thickness of the distended urinary bladder. There is no demonstrated mass within the urinary bladder. There are no demonstrated bladder calculi. US/Kidney and Bladder IMPRESSION: No definite acute or significant abnormality seen. Exam is limited by patient''s size. Electronically Signed: Harinder Hampton MD at 18:55 EDT , Service support ,
--- NOTE | 2019-07-12 15:42 | PCM.CONS.R ---
Problem List (1) Acute kidney injury superimposed on CKD Status: Chronic Consultation - Renal 07/12/19 PCP/ Referring MD: Requesting physician: [] Primary care physician: Ac Felix MD Reason for Consultation:: elida - History of Present Illness History of Present Illness: The patient is a 64 year old M Was admitted to the hospital with renal failure. Nephrology consult for renal failure. He was recently admitted here with osteomyelitis of foot. He was sent home with a combination of IV vancomycin and cefepime. Routine blood work drawn showed creatinine of more than 5 hence he was sent to the emergency room. Random vancomycin level came back at 40. Denies any symptoms. He says he did not make much urine yesterday, today urine output has improved. The urine was orange colored yesterday, straw-colored today. Denies any obstructive symptoms. Denies NSAIDs. No contrast studies. - Allergies Allergies: Allergies ciprofloxacin [From Cipro] Allergy (Verified 06/29/19 11:34) Rash he has tolerated oral cipro in the past levofloxacin [From Levaquin] Allergy (Verified 06/29/19 11:34) Hives Penicillins Allergy (Verified 06/29/19 11:34) Hives silver Allergy (Verified 06/29/19 11:34) Rash Skin márquez and itches, rash - Current Medications Current Medications: Current Medications Amlodipine Besylate (Norvasc) 10 mg PO DAILY [facility] Last Admin: 07/12/19 08:46 Dose: 10 mg Documented by: Carvedilol (Coreg) 3.125 mg PO BID [facility] Last Admin: 07/12/19 08:46 Dose: 3.125 mg Documented by: Dextrose (D50w Syringe) 0 gm IV X1 PRN; Protocol PRN Reason: Hypoglycemia Glucagon () 1 mg IM .X1 PRN PRN Reason: Hypoglycemia Heparin Sodium (Porcine) (Heparin Na) 5,000 unit SC Q8 [facility] Last Admin: 07/12/19 13:20 Dose: 5,000 unit Documented by: Hydralazine HCl (Apresoline) 50 mg PO BID [facility] Last Admin: 07/12/19 08:47 Dose: 50 mg Documented by: Sodium Chloride () 1,000 mls @ 125 mls/hr IV .Q8H [facility] Last Infusion: 07/12/19 10:42 Dose: 125 mls/hr Documented by: Sodium Chloride () 250 mls @ 15 mls/hr IV .[id number] PRN PRN Reason: Saline Flush Cefepime HCl 1 gm/ Sodium (Chloride) 50 mls @ 100 mls/hr IV Q24H JIM Insulin Human Lispro (Humalog Kwikpen (Bkc)) 0 unit SC ACHS JIM; Protocol Last Admin: 07/12/19 10:42 Dose: Not Given Documented by: Insulin Human Lispro (Humalog Kwikpen (Bkc)) 30 unit SC 0800,1200,1700 JIM Last Admin: 07/12/19 12:15 Dose: Not Given Documented by: Insulin Human NPH (Humulin N ([facility])) 40 units SC QHS JIM Last Admin: 07/11/19 22:00 Dose: 40 u Documented by: Melatonin (Melatonin) 3 mg PO QHS PRN PRN PRN Reason: INSOMNIA Metronidazole (Flagyl) 500 mg PO TID JIM Last Admin: 07/12/19 13:20 Dose: 500 mg Documented by: Nutritional Formula (Vu - Bradley Flavor) 1 packet PO BIDCM [facility] Sodium Chloride () 10 - 40 ml IV UD PRN PRN Reason: SALINE FLUSH Last Admin: 07/12/19 10:38 Dose: 20 ml Documented by: - Past Medical History Past Medical History (Chronic Problems): Chronic Problems Chronic ulcer of left foot with necrosis of muscle (Chronic) Acute kidney injury superimposed on CKD (Chronic) Lymphedema (Chronic) Venous insufficiency (Chronic) Peripheral vascular disease (Chronic) Tinea unguium (Chronic) Chronic ulcer of left foot with fat layer exposed (Chronic) Burn of leg (Chronic) Hammer toe of right foot (Chronic) Walking difficulty due to ankle and foot (Chronic) Obesity (Chronic) Type 2 diabetes mellitus with diabetic polyneuropathy (Chronic) Ulcer of left lower extremity with fat layer exposed (Chronic) Chronic ulcer of left foot with fat layer exposed (Chronic) Ulcer of right foot with fat layer exposed (Chronic) Ulcer of right lower extremity with fat layer exposed (Chronic) Ulcer of right lower extremity with fat layer exposed (Chronic) Chronic ulcer of left foot with fat layer exposed (Chronic) Dehiscence of amputation stump (Chronic) Type 2 diabetes mellitus with diabetic polyneuropathy (Chronic) Non-pressure chronic ulcer of right heel and midfoot with fat layer exposed (Chronic) Obesity (Chronic) Diabetes mellitus with polyneuropathy (Chronic) Non-pressure chronic ulcer of right heel and midfoot with necrosis of muscle (Chronic) Diabetic foot ulcer (Chronic) Osteomyelitis of foot (Chronic) Ulcer of right heel and midfoot with fat layer exposed (Chronic) Chronic ulcer of left foot with necrosis of muscle (Chronic) - Past Surgical History Surgical History: - - history of b/l great toe amputations, partial left little toe amputation, heel debridements and calcaneus bone biopsy - Social History Smoking Status: Never smoker Alcohol: None Drugs: None - Family History Maternal History Items: Diabetes, Hypertension Paternal History Items: - - from being hit by car Review of Systems Constitutional: Denies: Chills, Fever, Weight Change HEENT: Denies: Head Aches, Sinus Congestion, Sinus Drainage Cardiovascular: Denies: Chest Pain, Palpitations Respiratory: Denies: Cough, Shortness of breath at rest, Sputum production Gastrointestinal: Denies: Abdominal Pain, Nausea, Vomiting Genitourinary: Denies: Dysuria Musculoskeletal: Denies: Joint Pain, Joint Tenderness Skin: Denies: Rash, Wounds Neurological: Denies: Numbness, Tingling, Focal weakness Psychiatric: Denies: Anxiety, Depression, Homicidal Ideations, Suicidal Ideations Hematologic/ Lymphatic: Denies: Easy Bruising, Easy Bleeding - Physical Exam Vitals/I&O's: Vital Signs Temp Pulse Resp BP Pulse Ox 98.0 F 75 18 144/53 H 95 07/12/19 13:30 07/12/19 13:30 07/12/19 13:30 07/12/19 13:30 07/12/19 13:30 Oxygen Delivery Method Room Air Weight: 178.3 kg Body Mass Index (BMI) 46.5 Finger Stick Blood Glucose 222 Intake and Output for Last 24 Hours 07/10/19 07/11/19 07/12/19 23:59 23:59 23:59 Intake Total 1000 / 1500 2683.75 / 2683.75 Output Total 1650 / 1650 Balance 1000 / 775 1033.75 / 1033.75 General: Alert, Oriented x3, Cooperative HEENT: Atraumatic, PERRLA, EOMI, Normocephalic Neck: Supple, No JVD, Negative Carotid Bruits Lungs: Clear to auscultation, Normal air movement Cardiovascular: Regular rate, No murmurs Abdomen: Bowel Sounds Present, Soft, Non Tender Extremities: No edema, Capillary Refill Less than 3 Seconds Skin: No rashes, No breakdown Musculoskeletal: No Tenderness to Palpation of Joints or Extremities Neurological: Cranial nerves II-XII grossly intact Psych/Mental Status: Normal Affect, Appropriate Laboratory Results 07/11/19 15:50: WBC 11.3 H, RBC 3.58 L, Hgb 9.4 L, Hct 30.6 L, MCV 85.5, MCH 26.3 L, MCHC 30.7 L, RDW Std Deviation 51.2 H, RDW Coeff of Pool 16.7 H, Plt Count 352, MPV 10.0, Immature Gran % (Auto) 1.700 H, Neut % (Auto) 69.3, Lymph % (Auto) 14.0 L, [place] % (Auto) 10.2 H, Eos % (Auto) 4.1, Baso % (Auto) 0.7, Absolute Neuts (auto) 7.8 H, Absolute Lymphs (auto) 1.58, Nucleated RBC % 0 07/11/19 15:50: Sodium 137, Potassium 5.3 H, Chloride 109 H, Carbon Dioxide 17.0 L, Anion Gap 11, BUN 80 H, Creatinine 5.81 H, Estim Creat Clear Calc 16.19, Est GFR (MDRD) Af Amer 13 L, Est GFR (MDRD) Non-Af 11 L, BUN/Creatinine Ratio 13.8, Glucose 201 H, Calcium 9.4 07/11/19 22:01: POC Glucose 199 H 07/12/19 05:32: WBC 7.1, RBC 3.00 L, Hgb 7.9 L, Hct 25.4 L, MCV 84.7, MCH 26.3 L, MCHC 31.1 L, RDW Std Deviation 51.2 H, RDW Coeff of Pool 16.6 H, Plt Count 265, MPV 9.8, Immature Gran % (Auto) 1.400 H, Neut % (Auto) 62.7, Lymph % (Auto) 18.6 L, [place] % (Auto) 12.6 H, Eos % (Auto) 4.0, Baso % (Auto) 0.7, Absolute Neuts (auto) 4.4, Absolute Lymphs (auto) 1.32, Nucleated RBC % 0 07/12/19 05:32: Sodium 137, Potassium 5.2 H, Chloride 110 H, Carbon Dioxide 19.0 L, Anion Gap 8, BUN 77 H, Creatinine 5.60 H, Estim Creat Clear Calc 16.79, Est GFR (MDRD) Af Amer 13 L, Est GFR (MDRD) Non-Af 11 L, BUN/Creatinine Ratio 13.8, Glucose 169 H, Calcium 8.4 L 07/12/19 06:22: POC Glucose 158 H 07/12/19 09:13: Eos Smear Total Cells Pending 07/12/19 09:13: Ur Random Sodium 75, Urine Potassium 37.0, Urine Chloride 85 07/12/19 09:13: Urine Color Yellow, Urine Clarity Clear, Urine pH 6.0, Ur Specific [place] 1.010, Urine Protein 100 H, Urine Glucose (UA) Normal, Urine Ketones Negative, Urine Occult Blood 25 H, Urine Nitrite Negative, Urine Bilirubin Negative, Urine Urobilinogen Normal, Ur Leukocyte Esterase Negative, Urine RBC 0-5 SEEN, Urine WBC 0 SEEN, Ur Squamous Epith Cells 0-5 SEEN, Urine Bacteria 0 SEEN, Urine Mucus 0 SEEN 07/12/19 09:40: Random Vancomycin 46.3 H 07/12/19 10:41: POC Glucose 147 H Current Medications Amlodipine Besylate (Norvasc) 10 mg PO DAILY [facility] Last Admin: 07/12/19 08:46 Dose: 10 mg Documented by: Carvedilol (Coreg) 3.125 mg PO BID [facility] Last Admin: 07/12/19 08:46 Dose: 3.125 mg Documented by: Dextrose (D50w Syringe) 0 gm IV X1 PRN; Protocol PRN Reason: Hypoglycemia Glucagon () 1 mg IM .X1 PRN PRN Reason: Hypoglycemia Heparin Sodium (Porcine) (Heparin Na) 5,000 unit SC Q8 [facility] Last Admin: 07/12/19 13:20 Dose: 5,000 unit Documented by: Hydralazine HCl (Apresoline) 50 mg PO BID [facility] Last Admin: 07/12/19 08:47 Dose: 50 mg Documented by: Sodium Chloride () 1,000 mls @ 125 mls/hr IV .Q8H [facility] Last Infusion: 07/12/19 10:42 Dose: 125 mls/hr Documented by: Sodium Chloride () 250 mls @ 15 mls/hr IV .[id number] PRN PRN Reason: Saline Flush Cefepime HCl 1 gm/ Sodium (Chloride) 50 mls @ 100 mls/hr IV Q24H JIM Insulin Human Lispro (Humalog Kwikpen (Bk)) 0 unit SC ACHS JIM; Protocol Last Admin: 07/12/19 10:42 Dose: Not Given Documented by: Insulin Human Lispro (Humalog Kwikpen (Bk)) 30 unit SC 0800,1200,1700 [facility] Last Admin: 07/12/19 12:15 Dose: Not Given Documented by: Insulin Human NPH (Humulin N ([facility])) 40 units SC QHS JIM Last Admin: 07/11/19 22:00 Dose: 40 u Documented by: Melatonin (Melatonin) 3 mg PO QHS PRN PRN PRN Reason: INSOMNIA Metronidazole (Flagyl) 500 mg PO TID [facility] Last Admin: 07/12/19 13:20 Dose: 500 mg Documented by: Nutritional Formula (Vu - Bradley Flavor) 1 packet PO BIDCM [facility] Sodium Chloride () 10 - 40 ml IV UD PRN PRN Reason: SALINE FLUSH Last Admin: 07/12/19 10:38 Dose: 20 ml Documented by: Assessment/Plan All Active Problems Diabetic foot infection (Acute) Acute renal failure, chronic kidney disease stage III. Baseline creatinine at the time of last admission was around 1.6. Current admission creatinine is 5.7. Only prescription that I see according to history is antibiotics. Urine analysis shows some proteinuria but no leukocytes. Urine eosinophils are pending but with negative leukocytes this is likely to be negative. Due to his mostly bedbound status, we'll check a renal ultrasound to make sure he is not obstructed. Otherwise most likely this is ATN related to vancomycin. Reviewed ID notes. He is currently taken off vancomycin. Dose of cefepime for GFR less than 15. Hypertension. Current medication list reviewed. Blood pressure is borderline high. We will adjust medications as needed.
[2019-07-12 16:25] LABS: Bedside Glucose 142 mg/dL (70-110)
[2019-07-12] MEDS: 0.9% Normal Saline 1,000 ML 125 ML IV (17:05)
--- NOTE | 2019-07-12 18:43 | ART_ITS ---
Reason For Study: Ulcer Procedure A bilateral lower extremity continuous wave Doppler with analog waveform analysis,segmental pressures,and ankle brachial indexes without exercise. Left Segmental Pressures Left brachial= 173mmHg. Left posterior tibial artery = >254mmHg. Left dorsalis pedis artery = >254mmHg. The left dorsalis pedis waveforms are triphasic. The left posterior tibial artery waveforms are triphasic. Right Segmental Pressures Right brachial= 180mmHg. Right posterior tibial artery = >254mmHg. Right dorsalis pedis artery = >254mmHg. The right dorsalis pedis waveforms are triphasic. The right posterior tibial artery waveforms are triphasic. Indices The right ankle brachial index by the dorsalis pedis is NC. The right ankle brachial index by the posterior tibial artery is NC. The left ankle brachial index by the dorsalis pedis is NC. The left ankle brachial index by the posterior tibial artery is NC. Interpretation Summary Triphasic Doppler waveforms are noted at ankle level bilaterally. Pulse-volume recordings appear satisfactory at calf and ankle level bilaterally. Resting ankle-brachial indices could not be determined due to the non-compressibility of the vasculature at ankle level bilaterally. There is evidence of arterial calcification at ankle level bilaterally. However, there is no evidence of significant arterial occlusive disease at ankle level bilaterally. Ordering Physician: Dwayne Koch Referring Physician: Ac Felix Performed By: Emperatriz Wall RVT
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
[2019-07-12 22:16] LABS: Bedside Glucose 145 mg/dL (70-110)
[2019-07-13] VITALS (9 sets, daily range): BP systolic 146–157; BP diastolic 56–72; PULSE 65–80; RESP 16–20; TEMP 36.6–36.8; O2SAT 94–96
[2019-07-13 05:51] LABS: Absolute Lymphocyte Count 1.24 X10^3/uL (0.83-4.51); Basophil# 0.03 X10^3/uL; Basophil% 0.5 % (0-1); Eosinophil# 0.23 X10^3/uL; Eosinophils% 3.6 % (0-5); Hematocrit 24.7 % (40-54); Hemoglobin 7.6 g/dL (13.0-16.5); Lymphocyte # 1.24 X10^3/ul (4.0); Lymphocyte % 19.7 % (19-41); Mean Corp Hgb Conc 30.8 g/dL (32-36); Mean Corpuscular Volume 84.6 fL (80-94); Mean Platelet Vol. 9.9 fl (6.2-12.0); Monocyte# 0.73 X10^3/uL; Monocyte% 11.6 % (0-10); NRBC Flagged by Analyzer 0 % (0-5); Neutrophil # 4.04 X10^3/uL (2.7-7.7); Platelet Count 248 K/mm3 (150-450); RBC Distribution Width CV 16.5 % (11.6-14.6); RBC Distribution Width SD 50.9 fl (35.1-43.9); Red Blood Count 2.92 M/mm3 (4.6-6.2); White Blood Count 6.3 K/mm3 (4.4-11.0)
[2019-07-13 06:14] LABS: Anion Gap 7 (5-15); BUN 75 mg/dL (7-18); BUN/Creat Ratio 14.6 RATIO (10-20); Calcium,Total 8.3 mg/dL (8.5-10.1); Chloride 111 mmol/L (98-107); Creatinine, Serum 5.13 mg/dL (0.70-1.30); EST Glomerular Filtration Rate 12 mL/min (>60); Est Glom Filt Rate - Afr Amer 15 mL/min (>60); Estimated Creatinine Clearance 18.33 ml/min; Glucose 142 mg/dL (74-106); Potassium 4.7 mmol/L (3.5-5.1); Sodium Level 137 mmol/L (136-145)
[2019-07-13] MEDS: Heparin Injection (Vial) 5,000 UNIT/ML VIAL 5000 UNIT SC ×3 (06:31→21:33)
[2019-07-13] MEDS: 0.9% Normal Saline 1,000 ML 125 ML IV ×2 (06:31→09:16)
[2019-07-13] MEDS: metroNIDAZOLE 500 MG Tablet PO ×3 (06:31→21:34)
[2019-07-13 07:20] LABS: Bedside Glucose 145 mg/dL (70-110)
[2019-07-13] MEDS: amLODIPine 10 MG Tablet PO (09:18)
[2019-07-13] MEDS: hydrALAZINE 50 MG Tablet PO ×2 (09:18→21:34)
[2019-07-13] MEDS: Carvedilol 3.125 MG TABLET PO ×2 (09:18→21:34)
[2019-07-13] MEDS: Insulin Lispro 100 UNIT/ML INSULN.PEN SC ×2 (11:17→17:01)
[2019-07-13 11:30] LABS: Bedside Glucose 159 mg/dL (70-110)
--- NOTE | 2019-07-13 12:15 | PCM.PN.REN ---
Subjective: No new complaints. Urine output is significantly better. - Physical Exam Vitals/I&O's: Vital Signs Temp Pulse Resp BP Pulse Ox 98.0 F 80 18 146/56 H 96 07/13/19 09:25 07/13/19 09:41 07/13/19 09:25 07/13/19 09:25 07/13/19 09:25 Oxygen Delivery Method Room Air Weight: 178.3 kg Body Mass Index (BMI) 46.5 Finger Stick Blood Glucose 222 Intake and Output for Last 24 Hours 07/11/19 07/12/19 07/13/19 23:59 23:59 23:59 Intake Total 1000 / 1500 2890.00 / 3540.00 2293.75 / 2293.75 Output Total 2650 / 3375 1475 / 1475 Balance 1000 / 775 240.00 / 165.00 818.75 / 818.75 General: Alert, Oriented x3, Cooperative HEENT: Atraumatic, PERRLA, EOMI, Normocephalic Neck: Supple, No JVD, Negative Carotid Bruits Lungs: Clear to auscultation, Normal air movement Cardiovascular: Regular rate, No murmurs Abdomen: Bowel Sounds Present, Soft, Non Tender Extremities: No edema, Capillary Refill Less than 3 Seconds Skin: No rashes, No breakdown Musculoskeletal: No Tenderness to Palpation of Joints or Extremities Neurological: Cranial nerves II-XII grossly intact Psych/Mental Status: Normal Affect, Appropriate Microbiology Past 72 Hours 07/12/19 09:13 Urine, Clean Catch Urine Culture - Preliminary Culture exhibits no growth. Laboratory Results 07/12/19 09:13: Urine Color Yellow, Urine Clarity Clear, Urine pH 6.0, Ur Specific [place] 1.010, Urine Protein 100 H, Urine Glucose (UA) Normal, Urine Ketones Negative, Urine Occult Blood 25 H, Urine Nitrite Negative, Urine Bilirubin Negative, Urine Urobilinogen Normal, Ur Leukocyte Esterase Negative, Urine RBC 0-5 SEEN, Urine WBC 0 SEEN, Ur Squamous Epith Cells 0-5 SEEN, Urine Bacteria 0 SEEN, Urine Mucus 0 SEEN 07/12/19 15:59: POC Glucose 142 H 07/12/19 21:13: POC Glucose 145 H 07/13/19 05:32: WBC 6.3, RBC 2.92 L, Hgb 7.6 L, Hct 24.7 L, MCV 84.6, MCH 26.0 L, MCHC 30.8 L, RDW Std Deviation 50.9 H, RDW Coeff of Pool 16.5 H, Plt Count 248, MPV 9.9, Immature Gran % (Auto) 0.600, Neut % (Auto) 64.0, Lymph % (Auto) 19.7, [place] % (Auto) 11.6 H, Eos % (Auto) 3.6, Baso % (Auto) 0.5, Absolute Neuts (auto) 4.0, Absolute Lymphs (auto) 1.24, Nucleated RBC % 0 07/13/19 05:32: Sodium 137, Potassium 4.7, Chloride 111 H, Carbon Dioxide 19.0 L, Anion Gap 7, BUN 75 H, Creatinine 5.13 H, Estim Creat Clear Calc 18.33, Est GFR (MDRD) Af Amer 15 L, Est GFR (MDRD) Non-Af 12 L, BUN/Creatinine Ratio 14.6, Glucose 142 H, Calcium 8.3 L 07/13/19 06:28: POC Glucose 145 H 07/13/19 11:15: POC Glucose 159 H Current Medications Amlodipine Besylate (Norvasc) 10 mg PO DAILY [facility] Last Admin: 07/13/19 09:18 Dose: 10 mg Documented by: Carvedilol (Coreg) 3.125 mg PO BID [facility] Last Admin: 07/13/19 09:18 Dose: 3.125 mg Documented by: Dextrose (D50w Syringe) 0 gm IV X1 PRN; Protocol PRN Reason: Hypoglycemia Glucagon () 1 mg IM .X1 PRN PRN Reason: Hypoglycemia Heparin Sodium (Porcine) (Heparin Na) 5,000 unit SC Q8 [facility] Last Admin: 07/13/19 06:31 Dose: 5,000 unit Documented by: Hydralazine HCl (Apresoline) 50 mg PO BID [facility] Last Admin: 07/13/19 09:18 Dose: 50 mg Documented by: Sodium Chloride () 250 mls @ 15 mls/hr IV .[id number] PRN PRN Reason: Saline Flush Cefepime HCl 1 gm/ Sodium (Chloride) 50 mls @ 100 mls/hr IV Q24H [facility] Last Infusion: 07/12/19 23:48 Dose: Infused Documented by: Sodium Chloride () 1,000 mls @ 75 mls/hr IV .[id number] [facility] Insulin Human Lispro (Humalog Kwikpen (Bkc)) 0 unit SC ACHS [facility]; Protocol Last Admin: 07/13/19 11:17 Dose: 2 u Documented by: Insulin Human Lispro (Humalog Kwikpen (Bkc)) 30 unit SC 0800,1200,1700 [facility] Last Admin: 07/13/19 11:16 Dose: Not Given Documented by: Insulin Human NPH (Humulin N (Bk)) 40 units SC QHS [facility] Last Admin: 07/12/19 23:37 Dose: Not Given Documented by: Melatonin (Melatonin) 3 mg PO QHS PRN PRN PRN Reason: INSOMNIA Metronidazole (Flagyl) 500 mg PO TID [facility] Last Admin: 07/13/19 06:31 Dose: 500 mg Documented by: Nutritional Formula (Vu - [place] Flavor) 1 packet PO BIDCM [facility] Last Admin: 07/13/19 09:23 Dose: 1 packet Documented by: Sodium Chloride () 10 - 40 ml IV UD PRN PRN Reason: SALINE FLUSH Last Admin: 07/12/19 10:38 Dose: 20 ml Documented by: Medical Necessity - Tobacco Use Smoking Status: Never smoker Assessment/Plan All Active Problems Diabetic foot infection (Acute) Acute renal failure, chronic kidney disease stage III. Baseline creatinine at the time of last admission was around 1.6. admission creatinine is 5.7. Only prescription that I see according to history is antibiotics. Urine analysis shows some proteinuria but no leukocytes. Urine eosinophils are pending but with negative leukocytes this is likely to be negative. Renal ultrasound looks acceptable. most likely this is ATN related to vancomycin. Reviewed ID notes. He is currently taken off vancomycin. plan is to go for amputation as per surgery Hypertension. Current medication list reviewed. Blood pressure is borderline high. Cut back fluids today and assess.
--- NOTE | 2019-07-13 13:34 | PCM.CONS.GEN ---
Reason for Consult Date of Consultation: 07/13/19 Reason for Consultation: Nonhealing infected diabetic ulcer left foot with osteomyelitis. REFERRING PHYSICIAN: Dr. Koch. PSYCHOLOGIST ENGINEERING: Dr. Pompa. History of Present Illness: The patient is a 64 year old M with a significant history of diabetes mellitus who was admitted because of acute kidney injury from recent medication (Vancomycin) that he started after a recent I&D procedure on 06/29/19 involving nonhealing infected diabetic ulcers left foot. Cultures showed E. coli, Pseudomonas aeroginosa, MRSA, Corynebacterium striatum, Streptococcus group A, and Anaerobic cocci for which he was treated with Vancomycin, Cefepime, and Flagyl. It had been discussed with him in the recent past about proceeding with an amputation. Initially he seemed agreeable but wanted to wait on a decision until after the IV antibiotics were completed. Since he developed issues from the antibiotics, amputation will be discussed with him once again. Past Medical History Past Medical History (Chronic Problems): Chronic Problems History of transmetatarsal amputation of left foot (Chronic) Chronic ulcer of left foot with necrosis of muscle (Chronic) Acute kidney injury superimposed on CKD (Chronic) Lymphedema (Chronic) Venous insufficiency (Chronic) Peripheral vascular disease (Chronic) Tinea unguium (Chronic) Chronic ulcer of left foot with fat layer exposed (Chronic) Burn of leg (Chronic) Hammer toe of right foot (Chronic) Walking difficulty due to ankle and foot (Chronic) Obesity (Chronic) Type 2 diabetes mellitus with diabetic polyneuropathy (Chronic) Ulcer of left lower extremity with fat layer exposed (Chronic) Chronic ulcer of left foot with fat layer exposed (Chronic) Ulcer of right foot with fat layer exposed (Chronic) Ulcer of right lower extremity with fat layer exposed (Chronic) Ulcer of right lower extremity with fat layer exposed (Chronic) Chronic ulcer of left foot with fat layer exposed (Chronic) Dehiscence of amputation stump (Chronic) Type 2 diabetes mellitus with diabetic polyneuropathy (Chronic) Non-pressure chronic ulcer of right heel and midfoot with fat layer exposed (Chronic) Obesity (Chronic) Diabetes mellitus with polyneuropathy (Chronic) Non-pressure chronic ulcer of right heel and midfoot with necrosis of muscle (Chronic) Diabetic foot ulcer (Chronic) Osteomyelitis of foot (Chronic) Ulcer of right heel and midfoot with fat layer exposed (Chronic) Chronic ulcer of left foot with necrosis of muscle (Chronic) Allergies ciprofloxacin [From Cipro] Allergy (Verified 06/29/19 11:34) Rash he has tolerated oral cipro in the past levofloxacin [From Levaquin] Allergy (Verified 06/29/19 11:34) Hives Penicillins Allergy (Verified 06/29/19 11:34) Hives silver Allergy (Verified 06/29/19 11:34) Rash Skin márquez and itches, rash Home Medications: Ambulatory Orders Medication Instructions Recorded Lisinopril [Zestril] 10 mg PO DAILY 06/04/17 Metoprolol(XL)Succ [Toprol Xl 50 mg PO DAILY 06/04/17 (Beta Marshall)] Furosemide 40 mg PO DAILY #0 05/05/19 Insulin Regular, Human [Novolin R] 30 unit SQ TID #0 05/05/19 Insulin NPH Human Isophane 40 unit SQ QHS 06/29/19 [Novolin N Flexpen] hydrALAZINE [Apresoline] 50 mg PO BID 06/29/19 Amlodipine Besylate [Norvasc] 10 mg PO DAILY 07/11/19 Cefepime HCl [Maxipime] 2 gm IV Q8 07/11/19 Lactobacillus Acidophilus 1 tab PO BID 07/11/19 [Acidophilus] Vancomycin IV 1,250 mg IV Q24H 07/11/19 Surgical History: - - history of b/l great toe amputations, partial left little toe amputation, heel debridements and calcaneus bone biopsy Psychiatric History: No pertinent psych hx Smoking Status: Never smoker Alcohol: None Drugs: None - *Family History Maternal History Items: Diabetes, Hypertension Paternal History Items: - - from being hit by car Review of Systems Comment: Constitutional: Denies: Chills, Fever, Weight Change. HEENT: Denies: Head Aches, Sinus Congestion, Sinus Drainage. Cardiovascular: Denies: Chest Pain, Palpitations. Respiratory: Denies: Cough, Shortness of breath at rest, Sputum production. Gastrointestinal: Denies: Abdominal Pain, Nausea, Vomiting. Genitourinary: Denies: Dysuria. Musculoskeletal: Denies: Joint Pain, Joint Tenderness. Skin: Reports: Wounds - Diabetic wounds on both his legs currently being treated. Denies: Rash. Neurological: Denies: Numbness, Tingling, Focal weakness. Psychiatric: Denies: Anxiety, Depression. Hematologic/ Lymphatic: Denies: Easy Bruising, Easy Bleeding - Physical Exam Vitals/I&O's: General: Alert, Oriented x3, Cooperative. HEENT: PERRLA, EOMI. Oral: Dry Mucosa Neck: Supple, Nontender. No cervical adenopathy. Lungs: Clear to auscultation. Cardiovascular: Regular rate, Regular Rhythm. Abdomen: Soft, Non-Distended. Extremities: Bilateral lymphedema. Bilateral venous insufficiency with stasis dermatitis and brawny discoloration. Has nonhealing infected diabetic ulcers left plantar foot which measures 8.5 x 5 cm and left posterior heel which measures 4 x 5 cm. Some skin necrosis and muscle necrosis seen. No odor. Some drainage seen. Also has a healing ulcer on the right posterior heal that measures 4 x 4 cm. Has a left transmetatarsal amputation. Has a right big toe amputation. No inguinal adenopathy. Neurological: Neuro grossly intact, Sensory exam intact to light touch and pain Psych/Mental Status: Normal Affect, Appropriate Vital Signs Temp Pulse Resp BP Pulse Ox 98.0 F 80 18 146/56 H 96 07/13/19 09:25 07/13/19 09:41 07/13/19 09:25 07/13/19 09:25 07/13/19 09:25 Oxygen Delivery Method Room Air Weight: 393 lb 1.347 oz Body Mass Index (BMI) 46.5 Finger Stick Blood Glucose 222 Intake and Output for Last 24 Hours 07/11/19 07/12/19 07/13/19 23:59 23:59 23:59 Intake Total 1000 / 1500 2890.00 / 3540.00 2718.75 / 2718.75 Output Total 2650 / 3375 2825 / 2825 Balance 1000 / 775 240.00 / 165.00 -106.25 / -106.25 Microbiology Past 72 Hours 07/12/19 09:13 Urine, Clean Catch Urine Culture - Preliminary Culture exhibits no growth. Laboratory Results 07/12/19 09:13: Urine RBC 0-5 SEEN, Urine WBC 0 SEEN, Ur Squamous Epith Cells 0-5 SEEN, Urine Bacteria 0 SEEN, Urine Mucus 0 SEEN 07/12/19 15:59: POC Glucose 142 H 07/12/19 21:13: POC Glucose 145 H 07/13/19 05:32: WBC 6.3, RBC 2.92 L, Hgb 7.6 L, Hct 24.7 L, MCV 84.6, MCH 26.0 L, MCHC 30.8 L, RDW Std Deviation 50.9 H, RDW Coeff of Pool 16.5 H, Plt Count 248, MPV 9.9, Immature Gran % (Auto) 0.600, Neut % (Auto) 64.0, Lymph % (Auto) 19.7, Maverick % (Auto) 11.6 H, Eos % (Auto) 3.6, Baso % (Auto) 0.5, Absolute Neuts (auto) 4.0, Absolute Lymphs (auto) 1.24, Nucleated RBC % 0 07/13/19 05:32: Sodium 137, Potassium 4.7, Chloride 111 H, Carbon Dioxide 19.0 L, Anion Gap 7, BUN 75 H, Creatinine 5.13 H, Estim Creat Clear Calc 18.33, Est GFR (MDRD) Af Amer 15 L, Est GFR (MDRD) Non-Af 12 L, BUN/Creatinine Ratio 14.6, Glucose 142 H, Calcium 8.3 L 07/13/19 06:28: POC Glucose 145 H 07/13/19 11:15: POC Glucose 159 H Current Medications Amlodipine Besylate (Norvasc) 10 mg PO DAILY [facility] Last Admin: 07/13/19 09:18 Dose: 10 mg Documented by: Carvedilol (Coreg) 3.125 mg PO BID [facility] Last Admin: 07/13/19 09:18 Dose: 3.125 mg Documented by: Dextrose (D50w Syringe) 0 gm IV X1 PRN; Protocol PRN Reason: Hypoglycemia Glucagon () 1 mg IM .X1 PRN PRN Reason: Hypoglycemia Heparin Sodium (Porcine) (Heparin Na) 5,000 unit SC Q8 [facility] Last Admin: 07/13/19 06:31 Dose: 5,000 unit Documented by: Hydralazine HCl (Apresoline) 50 mg PO BID [facility] Last Admin: 07/13/19 09:18 Dose: 50 mg Documented by: Sodium Chloride () 250 mls @ 15 mls/hr IV .[id number] PRN PRN Reason: Saline Flush Cefepime HCl 1 gm/ Sodium (Chloride) 50 mls @ 100 mls/hr IV Q24H [facility] Last Infusion: 07/12/19 23:48 Dose: Infused Documented by: Sodium Chloride () 1,000 mls @ 75 mls/hr IV .[id number] [facility] Insulin Human Lispro (Humalog Kwikpen (Bkc)) 0 unit SC ACHS [facility]; Protocol Last Admin: 07/13/19 11:17 Dose: 2 u Documented by: Insulin Human Lispro (Humalog Kwikpen (Bkc)) 30 unit SC 0800,1200,1700 [facility] Last Admin: 07/13/19 11:16 Dose: Not Given Documented by: Insulin Human NPH (Humulin N (Bk)) 40 units SC QHS [facility] Last Admin: 07/12/19 23:37 Dose: Not Given Documented by: Melatonin (Melatonin) 3 mg PO QHS PRN PRN PRN Reason: INSOMNIA Metronidazole (Flagyl) 500 mg PO TID [facility] Last Admin: 07/13/19 06:31 Dose: 500 mg Documented by: Nutritional Formula (Vu - [place] Flavor) 1 packet PO BIDCM [facility] Last Admin: 07/13/19 09:23 Dose: 1 packet Documented by: Ondansetron HCl (Zofran) 4 mg IV Q6H PRN PRN PRN Reason: NAUSEA Sodium Chloride () 10 - 40 ml IV UD PRN PRN Reason: SALINE FLUSH Last Admin: 07/12/19 10:38 Dose: 20 ml Documented by: Assessment/Plan All Active Problems Diabetic foot infection (Acute) 1. Nonhealing infected diabetic ulcers left foot. 2. Osteomyelitis. 3. Acute kidney injury from recent medication (Vancomycin). 4. s/p TMA left foot. 5. Lymphedema lower extremities. 6. Venous insufficiency lower extremities. 7. Obesity. 8. MRSA. Continue Cefepime and Flagyl. The Vancomycin is on hold because of very high level of 40. These antibiotics are treating recent cultures from 06/29/19 which showed E. coli, Pseudomonas aeroginosa, MRSA, Corynebacterium striatum, Streptococcus Group A, and Anaerobic cocci. His initial Creatinine upon admission was 5.81. Today it was 5.13. With the difficulties that he is having with his antibiotics causing acute kidney injury, it was recommended to him to proceed with a left below knee amputation. His Prison Guard, Dr. Hernández, had discussed it with him in the recent past. He was scheduled to see me in the [facility] later in July to discuss amputation. 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 He wants to go home for a few days and then come back to proceed with the amputation. I discussed with him that if he puts it off, he runs the risk that the infection will worsen and become systemic and travel more proximally on his left leg which would eventually lead to an above knee amputation. If we proceed this week, there is good chance that we can get by with a below knee amputation. He will think about it and let me know over the next 24 hours. We can proceed with the left below knee amputation on Thursday under general anesthesia. Will have a drain in for a few weeks. Anticipate increased metabolic demands from the infection. Will check a Prealbumin and encourage nutritional supplementation with protein to help the healing process. Discussed with the patient that his skin is suboptimal with history of lymphedema and venous insufficiency with brawny discoloration. He may develop healing issues from his BKA as a result of this. Ultimately he may need an above knee amputation. He voices understanding. Patient was informed of the risks and complications of the procedure including alternatives to surgery. These were discussed with the patient personally. Patient voices understanding and wishes to proceed. After discharge, can followup at the Wound Center. Essential Procedure Criteria Procedure Essential: Yes Criteria Note: On 05/31/2019 the [place] Department of Health ([facility]) Public Order signed by [facility] Director Rhonda Harper M.D., regarding the Management of Non-Essential Surgeries and Procedures for the purpose of preserving Personal Protective Equipment (PPE) and critical hospital capacity and resources within [place] went into effect as of 06/01/2019 at 5:00PM. According to the [facility] Public Order: This action will remain in full force and effect until the State of Emergency declared by the Governor no longer exists or the Director of the [facility] rescinds or modifies this Order.. This [facility] order stated all non-essential or elective surgeries and procedures that utilize PPE should be delayed unless there is undue risk to the current or future health of a patient. After reviewing the aforementioned [facility] Public Order and the patients clinical case, I have determined that the scheduled procedure meets the criteria to go forward. Risk to Patient if Procedure Delayed: Risk of rapidly worsening to severe symptoms if delayed Inpatient E&M: 37441 Init Hosp L2 - ICD-10 - E11.628, L97.523, M86.9, N17.9, Z89.432, I89.0, I87.2, A49.02, E66.9
[2019-07-13] MEDS: Ondansetron 4 MG/2 ML Vial IV (13:40)
[2019-07-13] MEDS: 0.9% Saline Lock 10 ML Syringe IV (13:40)
[2019-07-13] MEDS: Bisacodyl 5 MG Tablet 10 MG PO (13:40)
[2019-07-13 14:33] LABS: Eosinophil Ct. Urine No Eosinophils Seen % (.)
--- NOTE | 2019-07-13 14:42 | PN.ID_ITS ---
Subjective: Feeling ok, making more urine, no fever - Physical Exam Vitals/I&O's: Vital Signs Temp Pulse Resp BP Pulse Ox 98.0 F 80 18 146/56 H 96 07/13/19 09:25 07/13/19 09:41 07/13/19 09:25 07/13/19 09:25 07/13/19 09:25 Oxygen Delivery Method Room Air Weight: 178.3 kg Body Mass Index (BMI) 46.5 Finger Stick Blood Glucose 222 Intake and Output for Last 24 Hours 07/11/19 07/12/19 07/13/19 23:59 23:59 23:59 Intake Total 1000 / 1500 2890.00 / 3540.00 2718.75 / 2718.75 Output Total 2650 / 3375 2825 / 2825 Balance 1000 / 775 240.00 / 165.00 -106.25 / -106.25 General: Alert, Cooperative, No apparent distress Lungs: Clear to auscultation, Normal air movement Cardiovascular: Regular rate, Regular Rhythm Abdomen: Soft, Non Tender, Non-Distended Skin: Ulcer/ Wound - foot wrapped Microbiology Past 72 Hours 07/12/19 09:13 Urine, Clean Catch Urine Culture - Preliminary Culture exhibits no growth. Laboratory Results 07/12/19 09:13: Eos Smear Total Cells No Eosinophils Seen 07/12/19 15:59: POC Glucose 142 H 07/12/19 21:13: POC Glucose 145 H 07/13/19 05:32: WBC 6.3, RBC 2.92 L, Hgb 7.6 L, Hct 24.7 L, MCV 84.6, MCH 26.0 L , MCHC 30.8 L, RDW Std Deviation 50.9 H, RDW Coeff of Pool 16.5 H, Plt Count 248, MPV 9.9, Immature Gran % (Auto) 0.600, Neut % (Auto) 64.0, Lymph % (Auto) 19.7, Desha % (Auto) 11.6 H, Eos % (Auto) 3.6, Baso % (Auto) 0.5, Absolute Neuts (auto) 4.0, Absolute Lymphs (auto) 1.24, Nucleated RBC % 0 07/13/19 05:32: Sodium 137, Potassium 4.7, Chloride 111 H, Carbon Dioxide 19.0 L , Anion Gap 7, BUN 75 H, Creatinine 5.13 H, Estim Creat Clear Calc 18.33, Est GFR (MDRD) Af Amer 15 L, Est GFR (MDRD) Non-Af 12 L, BUN/Creatinine Ratio 14.6, Glucose 142 H, Calcium 8.3 L 07/13/19 06:28: POC Glucose 145 H 07/13/19 11:15: POC Glucose 159 H Current Medications Amlodipine Besylate (Norvasc) 10 mg PO DAILY [facility] Last Admin: 07/13/19 09:18 Dose: 10 mg Documented by: Carvedilol (Coreg) 3.125 mg PO BID [facility] Last Admin: 07/13/19 09:18 Dose: 3.125 mg Documented by: Dextrose (D50w Syringe) 0 gm IV X1 PRN; Protocol PRN Reason: Hypoglycemia Glucagon () 1 mg IM .X1 PRN PRN Reason: Hypoglycemia Heparin Sodium (Porcine) (Heparin Na) 5,000 unit SC Q8 [facility] Last Admin: 07/13/19 13:41 Dose: 5,000 unit Documented by: Hydralazine HCl (Apresoline) 50 mg PO BID [facility] Last Admin: 07/13/19 09:18 Dose: 50 mg Documented by: Sodium Chloride () 250 mls @ 15 mls/hr IV .[id number] PRN PRN Reason: Saline Flush Cefepime HCl 1 gm/ Sodium (Chloride) 50 mls @ 100 mls/hr IV Q24H [facility] Last Infusion: 07/12/19 23:48 Dose: Infused Documented by: Sodium Chloride () 1,000 mls @ 75 mls/hr IV .[id number] [facility] Insulin Human Lispro (Humalog Kwikpen (Bkc)) 0 unit SC ACHS [facility]; Protocol Last Admin: 07/13/19 11:17 Dose: 2 u Documented by: Insulin Human Lispro (Humalog Kwikpen (Bkc)) 30 unit SC 0800,1200,1700 [facility] Last Admin: 07/13/19 11:16 Dose: Not Given Documented by: Insulin Human NPH (Humulin N (Bkc)) 40 units SC QHS [facility] Last Admin: 07/12/19 23:37 Dose: Not Given Documented by: Melatonin (Melatonin) 3 mg PO QHS PRN PRN PRN Reason: INSOMNIA Metronidazole (Flagyl) 500 mg PO TID [facility] Last Admin: 07/13/19 13:40 Dose: 500 mg Documented by: Nutritional Formula (Vu - [place] Flavor) 1 packet PO BIDCM [facility] Last Admin: 07/13/19 09:23 Dose: 1 packet Documented by: Ondansetron HCl (Zofran) 4 mg IV Q6H PRN PRN PRN Reason: NAUSEA Last Admin: 07/13/19 13:40 Dose: 4 mg Documented by: Sodium Chloride () 10 - 40 ml IV UD PRN PRN Reason: SALINE FLUSH Last Admin: 07/13/19 13:40 Dose: 20 ml Documented by: Medical Necessity - Tobacco Use Smoking Status: Never smoker Route of nutrition/ use of supplements: [] Nutritional Intake: [] IV Site: [] Hernandez Catheter: [] - Assessment/Plan Antibiotics: [] Assessment/Plan: [] L foot osteo with new JOANNA - had been on outpt iv vanc and cefepime with po flagyl. Outpt vanc trough over 40 prior to admit. Will check random level in AM Decrease cefepime to 1gm q24h. Cr improving slowly. Discussed with him, plan is to proceed with BKA. Given his severe issues with home iv abx, I think this is the best choice. Will follow, d/w Dr. Pompa and Dr. Coombs
[2019-07-13 17:11] LABS: Bedside Glucose 155 mg/dL (70-110)
--- NOTE | 2019-07-13 18:36 | PCM.PROGNOTE ---
Subjective: Patient was seen and examined today, I talked briefly with plastic surgery and infectious diseases about his care, patient told me earlier today that he did not want to have a below the knee amputation done at this time and he wanted to go home to finish up some business. He states he also wants to make out a will. Infectious diseases and plastic surgery talked with him and the patient has agreed for now to stay in the hospital and tentatively undergo surgery on 07/15/2019. This examiner is not convinced the patient is being sincere concerning wanting to proceed with surgery at this time. - Physical Exam Vitals/I&O's: Vital Signs Temp Pulse Resp BP Pulse Ox 98.3 F 80 16 157/61 H 94 07/13/19 15:34 07/13/19 15:52 07/13/19 15:34 07/13/19 15:34 07/13/19 15:34 Oxygen Delivery Method Room Air Weight: 178.3 kg Body Mass Index (BMI) 46.5 Finger Stick Blood Glucose 222 Intake and Output for Last 24 Hours 07/11/19 07/12/19 07/13/19 23:59 23:59 23:59 Intake Total 1000 / 1500 2890.00 / 3540.00 2718.75 / 2718.75 Output Total 2650 / 3375 2825 / 2825 Balance 1000 / 775 240.00 / 165.00 -106.25 / -106.25 General: Alert, Oriented x3, Cooperative, No apparent distress, Well developed, Well nourished HEENT: Atraumatic, PERRLA, EOMI, Normocephalic Oral: Moist Mucosa Neck: Supple, No JVD, Negative Carotid Bruits, Trachea Midline, Thyroid Normal Size and Texture Lungs: Clear to auscultation, Normal air movement, No rhonchi, No wheeze, No rales Cardiovascular: Regular rate, Regular Rhythm, Normal S1, Normal S2, No murmurs, PMI Normal, No rub noted, No Gallop Abdomen: Bowel Sounds Present, Soft, Non Tender, Non-Distended, Obese Extremities: No clubbing, - - Patient's lower extremities are wrapped with surgical dressing and Mateus wrapS, these were not removed for examination of the areas Skin: No rashes Musculoskeletal: No Tenderness to Palpation of Joints or Extremities Neurological: Cranial nerves II-XII grossly intact, Neuro grossly intact Psych/Mental Status: Normal Affect, Appropriate, Alert and oriented to time, place, person, mood and affect Microbiology Past 72 Hours 07/12/19 09:13 Urine, Clean Catch Urine Culture - Preliminary Culture exhibits no growth. Laboratory Results 07/12/19 09:13: Eos Smear Total Cells No Eosinophils Seen 07/12/19 21:13: POC Glucose 145 H 07/13/19 05:32: WBC 6.3, RBC 2.92 L, Hgb 7.6 L, Hct 24.7 L, MCV 84.6, MCH 26.0 L, MCHC 30.8 L, RDW Std Deviation 50.9 H, RDW Coeff of Pool 16.5 H, Plt Count 248, MPV 9.9, Immature Gran % (Auto) 0.600, Neut % (Auto) 64.0, Lymph % (Auto) 19.7, Stevens % (Auto) 11.6 H, Eos % (Auto) 3.6, Baso % (Auto) 0.5, Absolute Neuts (auto) 4.0, Absolute Lymphs (auto) 1.24, Nucleated RBC % 0 07/13/19 05:32: Sodium 137, Potassium 4.7, Chloride 111 H, Carbon Dioxide 19.0 L, Anion Gap 7, BUN 75 H, Creatinine 5.13 H, Estim Creat Clear Calc 18.33, Est GFR (MDRD) Af Amer 15 L, Est GFR (MDRD) Non-Af 12 L, BUN/Creatinine Ratio 14.6, Glucose 142 H, Calcium 8.3 L 07/13/19 06:28: POC Glucose 145 H 07/13/19 11:15: POC Glucose 159 H 07/13/19 17:00: POC Glucose 155 H Current Medications Amlodipine Besylate (Norvasc) 10 mg PO DAILY [facility] Last Admin: 07/13/19 09:18 Dose: 10 mg Documented by: Carvedilol (Coreg) 3.125 mg PO BID [facility] Last Admin: 07/13/19 09:18 Dose: 3.125 mg Documented by: Dextrose (D50w Syringe) 0 gm IV X1 PRN; Protocol PRN Reason: Hypoglycemia Glucagon () 1 mg IM .X1 PRN PRN Reason: Hypoglycemia Heparin Sodium (Porcine) (Heparin Na) 5,000 unit SC Q8 [facility] Last Admin: 07/13/19 13:41 Dose: 5,000 unit Documented by: Hydralazine HCl (Apresoline) 50 mg PO BID [facility] Last Admin: 07/13/19 09:18 Dose: 50 mg Documented by: Sodium Chloride () 250 mls @ 15 mls/hr IV .[id number] PRN PRN Reason: Saline Flush Cefepime HCl 1 gm/ Sodium (Chloride) 50 mls @ 100 mls/hr IV Q24H [facility] Last Infusion: 07/12/19 23:48 Dose: Infused Documented by: Sodium Chloride () 1,000 mls @ 75 mls/hr IV .[id number] [facility] Insulin Human Lispro (Humalog Kwikpen (Bkc)) 0 unit SC ACHS [facility]; Protocol Last Admin: 07/13/19 17:01 Dose: 2 u Documented by: Insulin Human Lispro (Humalog Kwikpen (Bkc)) 30 unit SC 0800,1200,1700 [facility] Last Admin: 07/13/19 17:01 Dose: Not Given Documented by: Insulin Human NPH (Humulin N (Bkc)) 40 units SC QHS [facility] Last Admin: 07/12/19 23:37 Dose: Not Given Documented by: Melatonin (Melatonin) 3 mg PO QHS PRN PRN PRN Reason: INSOMNIA Metronidazole (Flagyl) 500 mg PO TID [facility] Last Admin: 07/13/19 13:40 Dose: 500 mg Documented by: Nutritional Formula ([facility]u - [place] Flavor) [facility] Last Admin: 07/13/19 17:01 Dose: 1 packet Documented by: Ondansetron HCl (Zofran) 4 mg IV Q6H PRN PRN PRN Reason: NAUSEA Last Admin: 07/13/19 13:40 Dose: 4 mg Documented by: Sodium Chloride () 10 - 40 ml IV UD PRN PRN Reason: SALINE FLUSH Last Admin: 07/13/19 13:40 Dose: 20 ml Documented by: Medical Necessity - Tobacco Use Smoking Status: Never smoker Assessment/Plan All Active Problems Diabetic foot infection (Acute) #1 acute renal failure on a backdrop of chronic kidney disease stage III secondary to type 2 diabetes-nephrology is currently seeing the patient, his creatinine today was 5.13 #2 nonhealing chronic left foot neuropathic cellulitis/deep wound infection-continue present antibiotics per ID, again plastic surgery seeing the patient and for now the patient is consented to a below the knee amputation on the left #3 noncompliance with medical regimen #4 uncontrolled type 2 diabetes due to noncompliance #5 neuropathy secondary to type 2 diabetes #6 essential hypertension #7 class III obesity Inpatient E&M: 46374 Subs Hosp L2
[2019-07-13] MEDS: 0.9% Normal Saline 1,000 ML 75 ML IV (20:47)
[2019-07-13 23:15] LABS: Bedside Glucose 124 mg/dL (70-110)
[2019-07-14] VITALS (8 sets, daily range): BP systolic 127–147; BP diastolic 54–71; PULSE 66–77; RESP 18; TEMP 36.6–36.8; O2SAT 93–97
[2019-07-14] MEDS: 0.9% Normal Saline 1,000 ML 75 ML IV ×2 (01:06→11:56)
[2019-07-14] MEDS: Heparin Injection (Vial) 5,000 UNIT/ML VIAL 5000 UNIT SC ×3 (06:40→21:10)
[2019-07-14] MEDS: metroNIDAZOLE 500 MG Tablet PO ×3 (06:40→21:06)
[2019-07-14 07:13] LABS: Vancomycin, Random Level 35.1 ug/mL (0.0-15.0)
[2019-07-14 08:40] LABS: Bedside Glucose 134 mg/dL (70-110)
[2019-07-14 08:45] LABS: Anion Gap 10 (5-15); BUN 73 mg/dL (7-18); Chloride 113 mmol/L (98-107); EST Glomerular Filtration Rate 15 mL/min (>60); Est Glom Filt Rate - Afr Amer 18 mL/min (>60); Estimated Creatinine Clearance 21.87 ml/min; Glucose 142 mg/dL (74-106); Potassium 4.9 mmol/L (3.5-5.1); Sodium Level 142 mmol/L (136-145)
[2019-07-14 09:15] LABS: Absolute Neutrophil Count 5.1 X10^3/uL (2.0-7.7); Basophil# 0.04 X10^3/uL; Basophil% 0.5 % (0-1); Eosinophil# 0.32 X10^3/uL; Eosinophils% 4.2 % (0-5); Hematocrit 27.5 % (40-54); Hemoglobin 8.4 g/dL (13.0-16.5); Lymphocyte % 15.8 % (19-41); Mean Corp Hgb Conc 30.5 g/dL (32-36); Mean Corpuscular Hgb 26.2 pg (27.0-32.0); Mean Corpuscular Volume 85.7 fL (80-94); Mean Platelet Vol. 10.4 fl (6.2-12.0); Monocyte# 0.91 X10^3/uL; NRBC Flagged by Analyzer 0 % (0-5); Neutrophil # 5.06 X10^3/uL (2.7-7.7); Neutrophil % 66.7 % (47-70); Platelet Count 251 K/mm3 (150-450); RBC Distribution Width CV 16.3 % (11.6-14.6); RBC Distribution Width SD 50.5 fl (35.1-43.9); Red Blood Count 3.21 M/mm3 (4.6-6.2); White Blood Count 7.6 K/mm3 (4.4-11.0)
[2019-07-14] MEDS: Carvedilol 3.125 MG TABLET PO ×2 (09:58→21:06)
[2019-07-14] MEDS: amLODIPine 10 MG Tablet PO (09:58)
[2019-07-14] MEDS: Insulin Lispro 100 UNIT/ML INSULN.PEN 30 UNIT SC (09:58)
[2019-07-14] MEDS: hydrALAZINE 50 MG Tablet PO ×2 (09:58→21:06)
--- NOTE | 2019-07-14 10:22 | PN.ID_ITS ---
Subjective: Feeling better, making more urine, OR tomorrow. No fever. - Physical Exam Vitals/I&O's: Vital Signs Temp Pulse Resp BP Pulse Ox 97.9 F 72 18 138/58 H 93 07/14/19 10:02 07/14/19 10:02 07/14/19 10:02 07/14/19 10:02 07/14/19 10:02 Oxygen Delivery Method Room Air Weight: 178.3 kg Body Mass Index (BMI) 46.5 Finger Stick Blood Glucose 222 Intake and Output for Last 24 Hours 07/12/19 07/13/19 07/14/19 23:59 23:59 23:59 Intake Total 2890.00 / 3540.00 3243.75 / 3443.75 1021.25 / 1021.25 Output Total 2650 / 3375 3365 / 4180 2140 / 2140 Balance 240.00 / 165.00 -121.25 / -736.25 -1118.75 / -1118.75 General: Alert, Cooperative, No apparent distress Lungs: Clear to auscultation, Normal air movement Cardiovascular: Regular rate, Regular Rhythm Abdomen: Soft, Non Tender, Non-Distended Skin: No rashes - feet wrapped Microbiology Past 72 Hours 07/12/19 09:13 Urine, Clean Catch Urine Culture - Preliminary Culture exhibits no growth. Laboratory Results 07/12/19 09:13: Eos Smear Total Cells No Eosinophils Seen 07/13/19 11:15: POC Glucose 159 H 07/13/19 17:00: POC Glucose 155 H 07/13/19 21:30: POC Glucose 124 H 07/14/19 06:20: Random Vancomycin 35.1 H 07/14/19 06:20: Sodium 142, Potassium 4.9, Chloride 113 H, Carbon Dioxide 19.0 L , Anion Gap 10, BUN 73 H, Creatinine 4.30 H, Estim Creat Clear Calc 21.87, Est GFR (MDRD) Af Amer 18 L, Est GFR (MDRD) Non-Af 15 L, BUN/Creatinine Ratio 17.0, Glucose 142 H, Calcium 8.0 L 07/14/19 08:36: POC Glucose 134 H 07/14/19 08:46: WBC 7.6, RBC 3.21 L, Hgb 8.4 L, Hct 27.5 L, MCV 85.7, MCH 26.2 L , MCHC 30.5 L, RDW Std Deviation 50.5 H, RDW Coeff of Pool 16.3 H, Plt Count 251, MPV 10.4, Immature Gran % (Auto) 0.800, Neut % (Auto) 66.7, Lymph % (Auto) 15.8 L, [place] % (Auto) 12.0 H, Eos % (Auto) 4.2, Baso % (Auto) 0.5, Absolute Neuts (auto) 5.1, Absolute Lymphs (auto) 1.20, Nucleated RBC % 0 Current Medications Amlodipine Besylate (Norvasc) 10 mg PO DAILY [facility] Last Admin: 07/14/19 09:58 Dose: 10 mg Documented by: Carvedilol (Coreg) 3.125 mg PO BID [facility] Last Admin: 07/14/19 09:58 Dose: 3.125 mg Documented by: Dextrose (D50w Syringe) 0 gm IV X1 PRN; Protocol PRN Reason: Hypoglycemia Glucagon () 1 mg IM .X1 PRN PRN Reason: Hypoglycemia Heparin Sodium (Porcine) (Heparin Na) 5,000 unit SC Q8 [facility] Last Admin: 07/14/19 06:40 Dose: 5,000 unit Documented by: Hydralazine HCl (Apresoline) 50 mg PO BID [facility] Last Admin: 07/14/19 09:58 Dose: 50 mg Documented by: Sodium Chloride () 250 mls @ 15 mls/hr IV .[id number] PRN PRN Reason: Saline Flush Cefepime HCl 1 gm/ Sodium (Chloride) 50 mls @ 100 mls/hr IV Q24H [facility] Last Infusion: 07/13/19 22:15 Dose: Infused Documented by: Sodium Chloride () 1,000 mls @ 75 mls/hr IV .[id number] [facility] Last Admin: 07/14/19 01:06 Dose: 75 mls/hr Documented by: Insulin Human Lispro (Humalog Kwikpen (Bkc)) 0 unit SC ACHS [facility]; Protocol Last Admin: 07/14/19 09:58 Dose: Not Given Documented by: Insulin Human Lispro (Humalog Kwikpen (Bkc)) 30 unit SC 0800,1200,1700 [facility] Last Admin: 07/14/19 09:58 Dose: 30 units Documented by: Insulin Human NPH (Humulin N (Bkc)) 40 units SC QHS [facility] Last Admin: 07/13/19 21:35 Dose: Not Given Documented by: Melatonin (Melatonin) 3 mg PO QHS PRN PRN PRN Reason: INSOMNIA Metronidazole (Flagyl) 500 mg PO TID [facility] Last Admin: 07/14/19 06:40 Dose: 500 mg Documented by: Nutritional Formula (Vu - [place] Flavor) 1 packet PO BIDCM [facility] Last Admin: 07/14/19 09:57 Dose: 1 packet Documented by: Ondansetron HCl (Zofran) 4 mg IV Q6H PRN PRN PRN Reason: NAUSEA Last Admin: 07/13/19 13:40 Dose: 4 mg Documented by: Sodium Chloride () 10 - 40 ml IV UD PRN PRN Reason: SALINE FLUSH Last Admin: 07/13/19 13:40 Dose: 20 ml Documented by: Medical Necessity - Tobacco Use Smoking Status: Never smoker Route of nutrition/ use of supplements: [] Nutritional Intake: [] IV Site: [] Hernandez Catheter: [] - Assessment/Plan Antibiotics: [] Assessment/Plan: [] L foot osteo with new JOANNA - had been on outpt iv vanc and cefepime with po flagyl. Outpt vanc trough over 40 prior to admit. Level still high this AM. Decreased cefepime to 1gm q24h. Cr improving. Discussed with him, plan is to proceed with BKA. Given his severe issues with home iv abx, I think this is the best choice. Will follow
[2019-07-14 12:01] LABS: Bedside Glucose 155 mg/dL (70-110)
--- NOTE | 2019-07-14 12:38 | PN.RENAL_ITS ---
Subjective: no new events - Physical Exam Vitals/I&O's: Vital Signs Temp Pulse Resp BP Pulse Ox 97.9 F 72 18 138/58 H 93 07/14/19 10:02 07/14/19 10:02 07/14/19 10:02 07/14/19 10:02 07/14/19 10:02 Oxygen Delivery Method Room Air Weight: 178.3 kg Body Mass Index (BMI) 46.5 Finger Stick Blood Glucose 222 Intake and Output for Last 24 Hours 07/12/19 07/13/19 07/14/19 23:59 23:59 23:59 Intake Total 2890.00 / 3540.00 3243.75 / 3443.75 1833.75 / 1833.75 Output Total 2650 / 3375 3365 / 4180 2140 / 2140 Balance 240.00 / 165.00 -121.25 / -736.25 -306.25 / -306.25 General: Alert, Oriented x3, Cooperative HEENT: Atraumatic, PERRLA, EOMI, Normocephalic Neck: Supple, No JVD, Negative Carotid Bruits Lungs: Clear to auscultation, Normal air movement Cardiovascular: Regular rate, No murmurs Abdomen: Bowel Sounds Present, Soft, Non Tender Extremities: No edema, Capillary Refill Less than 3 Seconds Skin: No rashes, No breakdown Musculoskeletal: No Tenderness to Palpation of Joints or Extremities Neurological: Cranial nerves II-XII grossly intact Psych/Mental Status: Normal Affect, Appropriate Microbiology Past 72 Hours 07/12/19 09:13 Urine, Clean Catch Urine Culture - Preliminary Culture exhibits no growth. Laboratory Results 07/12/19 09:13: Eos Smear Total Cells No Eosinophils Seen 07/13/19 17:00: POC Glucose 155 H 07/13/19 21:30: POC Glucose 124 H 07/14/19 06:20: Random Vancomycin 35.1 H 07/14/19 06:20: Sodium 142, Potassium 4.9, Chloride 113 H, Carbon Dioxide 19.0 L , Anion Gap 10, BUN 73 H, Creatinine 4.30 H, Estim Creat Clear Calc 21.87, Est GFR (MDRD) Af Amer 18 L, Est GFR (MDRD) Non-Af 15 L, BUN/Creatinine Ratio 17.0, Glucose 142 H, Calcium 8.0 L 07/14/19 08:36: POC Glucose 134 H 07/14/19 08:46: WBC 7.6, RBC 3.21 L, Hgb 8.4 L, Hct 27.5 L, MCV 85.7, MCH 26.2 L , MCHC 30.5 L, RDW Std Deviation 50.5 H, RDW Coeff of Pool 16.3 H, Plt Count 251, MPV 10.4, Immature Gran % (Auto) 0.800, Neut % (Auto) 66.7, Lymph % (Auto) 15.8 L, [place] % (Auto) 12.0 H, Eos % (Auto) 4.2, Baso % (Auto) 0.5, Absolute Neuts (auto) 5.1, Absolute Lymphs (auto) 1.20, Nucleated RBC % 0 07/14/19 11:54: POC Glucose 155 H Current Medications Amlodipine Besylate (Norvasc) 10 mg PO DAILY [facility] Last Admin: 07/14/19 09:58 Dose: 10 mg Documented by: Carvedilol (Coreg) 3.125 mg PO BID [facility] Last Admin: 07/14/19 09:58 Dose: 3.125 mg Documented by: Dextrose (D50w Syringe) 0 gm IV X1 PRN; Protocol PRN Reason: Hypoglycemia Glucagon () 1 mg IM .X1 PRN PRN Reason: Hypoglycemia Heparin Sodium (Porcine) (Heparin Na) 5,000 unit SC Q8 [facility] Last Admin: 07/14/19 06:40 Dose: 5,000 unit Documented by: Hydralazine HCl (Apresoline) 50 mg PO BID [facility] Last Admin: 07/14/19 09:58 Dose: 50 mg Documented by: Sodium Chloride () 250 mls @ 15 mls/hr IV .[id number] PRN PRN Reason: Saline Flush Cefepime HCl 1 gm/ Sodium (Chloride) 50 mls @ 100 mls/hr IV Q24H [facility] Last Infusion: 07/13/19 22:15 Dose: Infused Documented by: Sodium Chloride () 1,000 mls @ 75 mls/hr IV .[id number] [facility] Last Admin: 07/14/19 11:56 Dose: 75 mls/hr Documented by: Insulin Human Lispro (Humalog Kwikpen (Bkc)) 0 unit SC ACHS [facility]; Protocol Last Admin: 07/14/19 09:58 Dose: Not Given Documented by: Insulin Human Lispro (Humalog Kwikpen (Bk)) 30 unit SC 0800,1200,1700 [facility] Last Admin: 07/14/19 09:58 Dose: 30 units Documented by: Insulin Human NPH (Humulin N (Bk)) 40 units SC QHS [facility] Last Admin: 07/13/19 21:35 Dose: Not Given Documented by: Melatonin (Melatonin) 3 mg PO QHS PRN PRN PRN Reason: INSOMNIA Metronidazole (Flagyl) 500 mg PO TID [facility] Last Admin: 07/14/19 06:40 Dose: 500 mg Documented by: Nutritional Formula (Vu - [place] Flavor) 1 packet PO BIDCM [facility] Last Admin: 07/14/19 09:57 Dose: 1 packet Documented by: Ondansetron HCl (Zofran) 4 mg IV Q6H PRN PRN PRN Reason: NAUSEA Last Admin: 07/13/19 13:40 Dose: 4 mg Documented by: Sodium Chloride () 10 - 40 ml IV UD PRN PRN Reason: SALINE FLUSH Last Admin: 07/13/19 13:40 Dose: 20 ml Documented by: Medical Necessity - Tobacco Use Smoking Status: Never smoker Assessment/Plan All Active Problems Diabetic foot infection (Acute) Acute renal failure, chronic kidney disease stage III. Baseline creatinine at the time of last admission was around 1.6. admission creatinine is 5.7. Only prescription that I see according to history is antibiotics. Urine analysis shows some proteinuria but no leukocytes. Urine eosinophils are pending but with negative leukocytes this is likely to be negative. Renal ultrasound looks acceptable. most likely this is ATN related to vancomycin. Reviewed ID notes. He is currently taken off vancomycin. plan is to go for amputation as per surgery tomorrow Hypertension. Current medication list reviewed. Blood pressure is ok.
[2019-07-14 16:25] LABS: Bedside Glucose 116 mg/dL (70-110)
--- NOTE | 2019-07-14 18:14 | PCM.PROGNOTE ---
Subjective: Patient was seen and examined today, he has decided to undergo a below the knee amputation tomorrow. Patient's creatinine has improved from yesterday. Patient has no complaints of any shortness of breath or chest pain. Objective: General: Alert, Oriented x3, Cooperative, No apparent distress, Well developed, Well nourished HEENT: Atraumatic, PERRLA, EOMI, Normocephalic Oral: Moist Mucosa Neck: Supple, No JVD, Negative Carotid Bruits, Trachea Midline, Thyroid Normal Size and Texture Lungs: Clear to auscultation, Normal air movement, No rhonchi, No wheeze, No rales Cardiovascular: Regular rate, Regular Rhythm, Normal S1, Normal S2, No murmurs, PMI Normal, No rub noted, No Gallop Abdomen: Bowel Sounds Present, Soft, Non Tender, Non-Distended, Obese Extremities: No clubbing, - - Patient's lower extremities are wrapped with surgical dressing and Mateus wraps, these were not removed for examination of the areas Skin: No rashes Musculoskeletal: No Tenderness to Palpation of Joints or Extremities Neurological: Cranial nerves II-XII grossly intact, Neuro grossly intact Psych/Mental Status: Normal Affect, Appropriate, Alert and oriented to time, place, person, mood and affect - Physical Exam Vitals/I&O's: Vital Signs Temp Pulse Resp BP Pulse Ox 98.0 F 77 18 127/71 H 94 07/14/19 14:00 07/14/19 14:00 07/14/19 14:00 07/14/19 14:00 07/14/19 14:00 Oxygen Delivery Method Room Air Weight: 178.3 kg Body Mass Index (BMI) 46.5 Finger Stick Blood Glucose 222 Intake and Output for Last 24 Hours 07/12/19 07/13/19 07/14/19 23:59 23:59 23:59 Intake Total 2890.00 / 3540.00 3243.75 / 3443.75 2863.75 / 2863.75 Output Total 2650 / 3375 3365 / 4180 3390 / 3390 Balance 240.00 / 165.00 -121.25 / -736.25 -526.25 / -526.25 Microbiology Past 72 Hours 07/12/19 09:13 Urine, Clean Catch Urine Culture - Final Culture exhibits no growth. Laboratory Results 07/13/19 21:30: POC Glucose 124 H 07/14/19 06:20: Random Vancomycin 35.1 H 07/14/19 06:20: Sodium 142, Potassium 4.9, Chloride 113 H, Carbon Dioxide 19.0 L, Anion Gap 10, BUN 73 H, Creatinine 4.30 H, Estim Creat Clear Calc 21.87, Est GFR (MDRD) Af Amer 18 L, Est GFR (MDRD) Non-Af 15 L, BUN/Creatinine Ratio 17.0, Glucose 142 H, Calcium 8.0 L 07/14/19 08:36: POC Glucose 134 H 07/14/19 08:46: WBC 7.6, RBC 3.21 L, Hgb 8.4 L, Hct 27.5 L, MCV 85.7, MCH 26.2 L, MCHC 30.5 L, RDW Std Deviation 50.5 H, RDW Coeff of Pool 16.3 H, Plt Count 251, MPV 10.4, Immature Gran % (Auto) 0.800, Neut % (Auto) 66.7, Lymph % (Auto) 15.8 L, [place] % (Auto) 12.0 H, Eos % (Auto) 4.2, Baso % (Auto) 0.5, Absolute Neuts (auto) 5.1, Absolute Lymphs (auto) 1.20, Nucleated RBC % 0 07/14/19 11:54: POC Glucose 155 H 07/14/19 16:05: POC Glucose 116 H Current Medications Amlodipine Besylate (Norvasc) 10 mg PO DAILY [facility] Last Admin: 07/14/19 09:58 Dose: 10 mg Documented by: Carvedilol (Coreg) 3.125 mg PO BID [facility] Last Admin: 07/14/19 09:58 Dose: 3.125 mg Documented by: Dextrose (D50w Syringe) 0 gm IV X1 PRN; Protocol PRN Reason: Hypoglycemia Glucagon () 1 mg IM .X1 PRN PRN Reason: Hypoglycemia Heparin Sodium (Porcine) (Heparin Na) 5,000 unit SC Q8 [facility] Last Admin: 07/14/19 13:20 Dose: 5,000 unit Documented by: Hydralazine HCl (Apresoline) 50 mg PO BID [facility] Last Admin: 07/14/19 09:58 Dose: 50 mg Documented by: Sodium Chloride () 250 mls @ 15 mls/hr IV .[id number] PRN PRN Reason: Saline Flush Cefepime HCl 1 gm/ Sodium (Chloride) 50 mls @ 100 mls/hr IV Q24H [facility] Last Infusion: 07/13/19 22:15 Dose: Infused Documented by: Sodium Chloride () 1,000 mls @ 75 mls/hr IV .[id number] [facility] Last Admin: 07/14/19 11:56 Dose: 75 mls/hr Documented by: Insulin Human Lispro (Humalog Kwikpen (Bkc)) 0 unit SC ACHS [facility]; Protocol Last Admin: 07/14/19 17:10 Dose: Not Given Documented by: Insulin Human Lispro (Humalog Kwikpen (Bkc)) 30 unit SC 0800,1200,1700 [facility] Last Admin: 07/14/19 17:09 Dose: Not Given Documented by: Insulin Human NPH (Humulin N (Bk)) 40 units SC QHS [facility] Last Admin: 07/13/19 21:35 Dose: Not Given Documented by: Melatonin (Melatonin) 3 mg PO QHS PRN PRN PRN Reason: INSOMNIA Metronidazole (Flagyl) 500 mg PO TID [facility] Last Admin: 07/14/19 13:20 Dose: 500 mg Documented by: Nutritional Formula (Vu - [place] Flavor) 1 packet PO BIDCM [facility] Last Admin: 07/14/19 17:08 Dose: 1 packet Documented by: Ondansetron HCl (Zofran) 4 mg IV Q6H PRN PRN PRN Reason: NAUSEA Last Admin: 07/13/19 13:40 Dose: 4 mg Documented by: Sodium Chloride () 10 - 40 ml IV UD PRN PRN Reason: SALINE FLUSH Last Admin: 07/13/19 13:40 Dose: 20 ml Documented by: Medical Necessity - Tobacco Use Smoking Status: Never smoker Assessment/Plan All Active Problems Diabetic foot infection (Acute) #1 acute renal failure due to ATN related to vancomycin on a backdrop of chronic kidney disease stage III secondary to type 2 diabetes-nephrology is currently seeing the patient, his creatinine today was 4.3 #2 nonhealing chronic left foot neuropathic cellulitis/deep wound infection-continue present antibiotics per ID, again plastic surgery is seeing the patient and for now the patient is consented to a below the knee amputation on the left #3 noncompliance with medical regimen #4 uncontrolled type 2 diabetes due to noncompliance #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
[2019-07-14 21:46] LABS: Bedside Glucose 159 mg/dL (70-110)
[2019-07-15] VITALS (17 sets, daily range): BP systolic 135–166; BP diastolic 47–69; PULSE 66–79; RESP 16–18; TEMP 36.2–37.1; O2SAT 93–100; BMI 44.6; BMI 46.6
[2019-07-15] MEDS: 0.9% Normal Saline 1,000 ML 75 ML IV (00:12)
[2019-07-15] MEDS: Ondansetron 4 MG/2 ML Vial IV ×2 (00:14→19:35)
--- NOTE | 2019-07-15 05:00 | EKG12_ITS ---
Test Reason : PRE-OP Blood Pressure : / mmHG Vent. Rate : 069 BPM Atrial Rate : 069 BPM P-R Int : 152 ms QRS Dur : 096 ms QT Int : 408 ms P-R-T Axes : 030 012 014 degrees QTc Int : 437 ms Normal sinus rhythm Low voltage QRS Borderline ECG Confirmed by ONDINA HERMOSILLO, CRISSY ([id number]), editor trade journal PADDY ZARATE ([id number]) on 07/18/2019 2:57:35 PM Referred By: DR RICH Confirmed By:CRISSY [place] MD
[2019-07-15] MEDS: metroNIDAZOLE 500 MG Tablet PO ×2 (05:06→21:40)
[2019-07-15 05:17] LABS: Absolute Lymphocyte Count 1.66 X10^3/uL (0.83-4.51); Basophil# 0.04 X10^3/uL; Basophil% 0.6 % (0-1); Eosinophil# 0.26 X10^3/uL; Eosinophils% 3.8 % (0-5); Hematocrit 26.4 % (40-54); Lymphocyte # 1.66 X10^3/ul (4.0); Lymphocyte % 24.4 % (19-41); Mean Corp Hgb Conc 30.3 g/dL (32-36); Mean Corpuscular Hgb 26.4 pg (27.0-32.0); Mean Corpuscular Volume 87.1 fL (80-94); Mean Platelet Vol. 10.1 fl (6.2-12.0); Monocyte% 11.7 % (0-10); NRBC Flagged by Analyzer 0 % (0-5); Neutrophil # 4.02 X10^3/uL (2.7-7.7); Neutrophil % 59.1 % (47-70); Platelet Count 216 K/mm3 (150-450); RBC Distribution Width CV 16.6 % (11.6-14.6); RBC Distribution Width SD 52.2 fl (35.1-43.9); Red Blood Count 3.03 M/mm3 (4.6-6.2); White Blood Count 6.8 K/mm3 (4.4-11.0)
[2019-07-15 05:31] LABS: Anion Gap 6 (5-15); BUN 74 mg/dL (7-18); BUN/Creat Ratio 18.4 RATIO (10-20); Calcium,Total 8.1 mg/dL (8.5-10.1); Chloride 114 mmol/L (98-107); Creatinine, Serum 4.02 mg/dL (0.70-1.30); EST Glomerular Filtration Rate 16 mL/min (>60); Est Glom Filt Rate - Afr Amer 19 mL/min (>60); Glucose 138 mg/dL (74-106); Potassium 4.7 mmol/L (3.5-5.1); Sodium Level 140 mmol/L (136-145)
[2019-07-15 05:41] LABS: Partial Thromboplast Time 35.3 Seconds (24.1-36.2)
[2019-07-15] MEDS: Carvedilol 3.125 MG TABLET PO ×2 (08:04→21:40)
[2019-07-15 08:11] LABS: Bedside Glucose 124 mg/dL (70-110)
--- NOTE | 2019-07-15 11:00 | AMP_PTH ---
PATIENT: [place] IV[place] LOC: MS3 U#:[id number] AGE/SX: 64/M [place] [facility] [place]11/[address]: Dr. Jessy Rolle MD : [id number] BED: 1 DIS: 07/20/2019 SPEC #: [id number] RECD: 07/18/19 08:56 STATUS: DON REQ #: [id number] RENUKA: 07/15/19 11:[address]: Tip Pompa DEPT: SURGICAL PATHOLOGY RECD BY: Xi Richter ENTERED: 07/18/19 08:58 SP TYPE: Amputation OTHR DR: MD Dr. Gemini Florian, TRUMANM MD Dr. Carlos Ramirez MD Dr. Robert Leininger, MD Dr. Roger O Snyder, MD Tissues: Left leg Procedures: Decalcification bone/plaque Surgery Specimen Level V HEADER OPERATION: Left below knee amputation PRE-OP DIAGNOSIS: Diabetic foot infection TISSUE SUBMITTED: Left lower leg MICROSCOPIC DIAGNOSIS Left lower leg, below knee amputation: Skin and soft tissue with ulceration and associated acute and chronic inflammation and granulation. Calcified atherosclerotic disease of dorsal pedis, posterior tibial and anterior tibial arteries. Bone with reparative and reactive change. Soft tissue, skin and bone at the resection margin with no pathologic change. AM:enrique 07/21/19 MICROSCOPIC DESCRIPTION Slides are reviewed. GROSS DESCRIPTION Received in a biohazard bag labeled with the patient's name and designated below knee amputation left. The specimen consists of a below knee amputation of left lower extremity measuring from posterior cutaneous and soft tissue resection margin to heel 25 cm and from heel to distal resection margin 21 cm. There is a previous amputation of foot and all five toes are absent. The posterior cutaneous resection margin is 13 cm below the bony resection margin. The plantar surface of the foot shows an extensive area of ulceration measuring 9 x 8 cm. The ulcer base shows focal area of hester purulent exudate. A suture is also noted at one edge of the ulceration. The dorsalis pedis, anterior tibial vessel and posterior tibial vessels are dissected. They show luminal obliteration of the lumen and cuts with gritty sensation. [employer] sections are submitted as follows: 1 - cutaneous and soft tissue resection margin, 2 & 3 - ulcerated area, 4 - dorsalis pedis vessel, 5 - posterior tibial vessel, 6 - anterior tibial vessel, 7 - bone marrow at the line of resection, 8 & 9 - bone underneath the area of ulceration. Cassettes 49 are submitted after decalcification. / FREDRICK:enrique 07/18/19 TC:2 CPT: 08252, 25749
--- NOTE | 2019-07-15 14:26 | PN.RENAL_ITS ---
Subjective: no new complaints - Physical Exam Vitals/I&O's: Vital Signs Temp Pulse Resp BP Pulse Ox 97.8 F 69 16 136/51 H 95 07/15/19 09:21 07/15/19 09:21 07/15/19 09:21 07/15/19 09:21 07/15/19 09:21 Oxygen Delivery Method Room Air Weight: 175.3 kg Body Mass Index (BMI) 44.6 Finger Stick Blood Glucose 222 Intake and Output for Last 24 Hours 07/13/19 07/14/19 07/15/19 23:59 23:59 23:59 Intake Total 3243.75 / 3443.75 2913.75 / 3413.75 1720 / 1720 Output Total 3365 / 4180 3390 / 3790 2009 Balance -121.25 / -736.25 -476.25 / -376.25 -290 / -290 General: Alert, Oriented x3, Cooperative HEENT: Atraumatic, PERRLA, EOMI, Normocephalic Neck: Supple, No JVD, Negative Carotid Bruits Lungs: Clear to auscultation, Normal air movement Cardiovascular: Regular rate, No murmurs Abdomen: Bowel Sounds Present, Soft, Non Tender Extremities: No edema, Capillary Refill Less than 3 Seconds Skin: No rashes, No breakdown Musculoskeletal: No Tenderness to Palpation of Joints or Extremities Neurological: Cranial nerves II-XII grossly intact Psych/Mental Status: Normal Affect, Appropriate Microbiology Past 72 Hours 07/12/19 09:13 Urine, Clean Catch Urine Culture - Final Culture exhibits no growth. Laboratory Results 07/14/19 16:05: POC Glucose 116 H 07/14/19 21:13: POC Glucose 159 H 07/15/19 04:58: WBC 6.8, RBC 3.03 L, Hgb 8.0 L, Hct 26.4 L, MCV 87.1, MCH 26.4 L , MCHC 30.3 L, RDW Std Deviation 52.2 H, RDW Coeff of Pool 16.6 H, Plt Count 216, MPV 10.1, Immature Gran % (Auto) 0.400, Neut % (Auto) 59.1, Lymph % (Auto) 24.4, [place] % (Auto) 11.7 H, Eos % (Auto) 3.8, Baso % (Auto) 0.6, Absolute Neuts (auto) 4.0, Absolute Lymphs (auto) 1.66, Nucleated RBC % 0 07/15/19 04:58: APTT 35.3 07/15/19 04:58: Sodium 140, Potassium 4.7, Chloride 114 H, Carbon Dioxide 20.0 L , Anion Gap 6, BUN 74 H, Creatinine 4.02 H, Estim Creat Clear Calc 23.40, Est GFR (MDRD) Af Amer 19 L, Est GFR (MDRD) Non-Af 16 L, BUN/Creatinine Ratio 18.4, Glucose 138 H, Calcium 8.1 L 07/15/19 04:58: Blood Type O POSITIVE, Antibody Screen NEGATIVE 07/15/19 08:00: POC Glucose 124 H Current Medications Amlodipine Besylate (Norvasc) 10 mg PO DAILY [facility] Last Admin: 07/14/19 09:58 Dose: 10 mg Documented by: Carvedilol (Coreg) 3.125 mg PO BID [facility] Last Admin: 07/15/19 08:04 Dose: 3.125 mg Documented by: Dextrose (D50w Syringe) 0 gm IV X1 PRN; Protocol PRN Reason: Hypoglycemia Glucagon () 1 mg IM .X1 PRN PRN Reason: Hypoglycemia Heparin Sodium (Porcine) (Heparin Na) 5,000 unit SC Q8 [facility] Last Admin: 07/15/19 04:24 Dose: Not Given Documented by: Hydralazine HCl (Apresoline) 50 mg PO BID [facility] Last Admin: 07/14/19 21:06 Dose: 50 mg Documented by: Sodium Chloride () 250 mls @ 15 mls/hr IV .[id number] PRN PRN Reason: Saline Flush Cefepime HCl 1 gm/ Sodium (Chloride) 50 mls @ 100 mls/hr IV Q24H [facility] Last Infusion: 07/14/19 21:36 Dose: Infused Documented by: Sodium Chloride () 1,000 mls @ 75 mls/hr IV .[id number] [facility] Last Admin: 07/15/19 00:12 Dose: 75 mls/hr Documented by: Insulin Human Lispro (Humalog Kwikpen (Bkc)) 0 unit SC ACHS [facility]; Protocol Last Admin: 07/15/19 12:43 Dose: Not Given Documented by: Insulin Human Lispro (Humalog Kwikpen (Bkc)) 30 unit SC 0800,1200,1700 [facility] Last Admin: 07/15/19 12:43 Dose: Not Given Documented by: Insulin Human NPH (Humulin N ([facility])) 40 units SC QHS [facility] Last Admin: 07/14/19 21:14 Dose: Not Given Documented by: Melatonin (Melatonin) 3 mg PO QHS PRN PRN PRN Reason: INSOMNIA Metronidazole (Flagyl) 500 mg PO TID [facility] Last Admin: 07/15/19 05:06 Dose: 500 mg Documented by: Nutritional Formula (Vu - [place] Flavor) 1 packet PO BIDCM [facility] Last Admin: 07/15/19 08:04 Dose: Not Given Documented by: Ondansetron HCl (Zofran) 4 mg IV Q6H PRN PRN PRN Reason: NAUSEA Last Admin: 07/15/19 00:14 Dose: 4 mg Documented by: Sodium Chloride () 10 - 40 ml IV UD PRN PRN Reason: SALINE FLUSH Last Admin: 07/13/19 13:40 Dose: 20 ml Documented by: Medical Necessity - Tobacco Use Smoking Status: Never smoker Assessment/Plan All Active Problems Diabetic foot infection (Acute) Acute renal failure, chronic kidney disease stage III. Baseline creatinine at the time of last admission was around 1.6. admission creatinine is 5.7. Only prescription that I see according to history is antibiotics. Urine analysis shows some proteinuria but no leukocytes. Urine eosinophils are pending but with negative leukocytes this is likely to be negative. Renal ultrasound looks acceptable. most likely this is ATN related to vancomycin. Reviewed ID notes. He is currently taken off vancomycin. Hypertension. Current medication list reviewed. Blood pressure is ok.
[2019-07-15] MEDS: Mupirocin Ointment 22gm Tube 1 APPLIC (15:15)
[2019-07-15 16:05] LABS: Bedside Glucose 166 mg/dL (70-110)
--- NOTE | 2019-07-15 17:23 | PCM.OPRPT ---
Report of Operation Date of Procedure: 07/15/19 Pre-Operative Diagnosis: 1. Nonhealing infected diabetic ulcers left foot. 2. Osteomyelitis. 3. Acute kidney injury from recent medication (Vancomycin). 4. s/p TMA left foot. 5. Lymphedema lower extremities. 6. Venous insufficiency lower extremities. 7. Obesity. 8. MRSA. Post-Operative Diagnosis: Same. Surgery/Procedure Performed:: Left below knee amputation. Description of Surgical Findings:: The patient is a 64 year old M with a significant history of diabetes mellitus who was admitted because of acute kidney injury from recent medication (Vancomycin) that he started after a recent I&D procedure on 06/29/19 involving nonhealing infected diabetic ulcers left foot. Cultures showed E. coli, Pseudomonas aeroginosa, MRSA, Corynebacterium striatum, Streptococcus group A, and Anaerobic cocci for which he was treated with Vancomycin, Cefepime, and Flagyl. It had been discussed with him in the recent past about proceeding with an amputation. Initially he seemed agreeable but wanted to wait on a decision until after the IV antibiotics were completed. Since he developed issues from the antibiotics, the need for amputation has become more urgent. The patient has agreed. Patient was informed of the risks and complications of the procedure including alternatives to surgery. These were discussed with the patient personally. Patient voices understanding and wishes to proceed. Total tourniquet time - 115 minutes. Size of left below knee central amputation stump wound - 7 x 2 cm. IV Fluids - 1550 ml. Urine Output - 1150 ml. I used AmnioFill Placental Connective Tissue Powder, 1000 mg. Catalog Number - [id number]. Lot Number - [id number]. Expiration - November 15, 2023. I used Marlen absorbable hemostat. Reference Number - [id number]. Lot Number - [id number]. Expiration - March 12, 2024. operations and intelligence assistant: None Type of Anesthesia:: General Specimen's removed: Left below knee amputation stump to Pathology. Drains: Adams. Estimated Blood Loss (mL): 150 ml. Fluids Replaced: 2700 ml (IV Fluids 1550 ml, Urine Output 1150 ml). Description of Procedure: Patient was taken to OR in supine position and was placed under general anesthesia. His left leg was prepped and draped in the usual fashion. A sterile stockinette was placed over the left leg. SCD was placed on the right leg for DVT prophylaxis. Perioperative antibiotics were given intravenously. A aleman catheter was then placed. The anterior tibial tubercle was marked. A horizontal marking was made 12 cm distally. I then extended this marking posteriorly and created a posterior flap with a length of 10 cm. When the tibia is exposed, I will chanel it at 11.5 cm for the osteotomy. The fibula will be remove about 1.5 cm proximal to that. These markings were infiltrated with xylocaine with epinephrine. Prior to prepping the patient, a tourniquet was placed on the proximal thigh. The left leg was elevated and an Esmarch bandage was placed for compression as the tourniquet was elevated to 300 mmHg. I made an anterior incision and when I got to the anterior tibia, a horizontal incision was made down to the bone. This horizontal incision was made at 12 cm from the anterior tibial tubercle. I then incised the anterior tibial muscle, the extensor hallucis longus muscle, and the extensor digitorum longus muscle. The anterior tibial vessels were seen and dissected and ligated with Number 2 Silk tie ligatures. The peroneal muscles were then incised laterally. I located the peroneal nerve and placed it on stretch. I incised the nerve and allowed it to retract proximally to minimize neuroma formation. This exposed the fibula. Using a periosteal elevator, I freed up the tibia. I then placed the gigli saw around the tibia at the level of the previous marking at 11.5 cm from the anterior tibial tubercle. The tibia was then incised. This made it a little easier to get exposure to the tibialis posterior muscle which was incised. The flexor digitorum longus muscle medially and the flexor hallucis longus muscle laterally were incised. This exposed the peroneal vessels laterally and the posterior tibial vessels medially. These vessels were dissected and ligated with Number 2 Silk tie ligatures. The posterior tibial nerve was dissected free and placed on stretch and incised. This allowed the proximal end to retract proximally to minimize neuroma formation on the stump. I dissected the fibula with a periosteal elevator superiorly about 1.5 cm proximal to the tibial osteotomy. I used a gigli saw to incise the fibula. A rasp was used to smooth out the bony edge. I then extended the skin incision posteriorly and created the posterior flap. I the gastrocnemius muscle from the soleus muscle. The remaining muscle fibers from the soleus muscle were incised as the distal leg was removed from the field. The amputated leg will be sent to Pathology for analysis. In order to close the posterior flap, the soleus muscle was incised thus exposing the gastrocnemius muscle. This thinned the flap enough that I was able to advance the flap anteriorly to cover the bone. His skin showed evidence of lymphedema and brawny discoloration from venous insufficiency, and there was difficulty in closing the central aspect of the wound. A size 15 Adams drain was placed through a separate stab incision medially and secured to the skin with 3-0 Nylon suture. The drain was used to drain the deeper wound over the bone and brought out into the subcutaneous tissue. Prior to closure of the stump, I beveled the tibia anteriorly with an oscillating saw to smooth out the bone anteriorly. A rasp was used to smooth out the edges of the bone. I then released the tourniquet after 115 minutes. Hemostasis was obtained with electrocautery. Nothing else needed to be ligated at this time. The wound was irrigated with Irrisept 0.05% chlorhexidine solution followed by saline irrigation. The flaps were viable with no evidence of vascular compromise. I then placed AmnioFill placental connective tissue powder into the wound at the level of the bone to help stimulate the healing process. I used 1000 mg. I was able to cover the tibia with the soleus muscle to the periosteum anteriorly with 2-0 Vicryl figure of eight interrupted sutures. The fascia of the gastrocnemius muscle was then approximated to the fascia and periosteum anteriorly with 2-0 Vicryl figure of eight interrupted sutures. I then sprayed Marlen absorbable hemostat into the subcutaneous wound to minimize seroma formation. The deep dermis and subcutaneous tissue was approximated with 2-0 Vicryl interrupted sutures. I tried to close the central wound and the skin was too friable and the dermis was quite thin, and I couldn't approximate the central aspect of the stump wound. It measured 7 x 2 cm. The skin on the lateral and medial sides were approximated with 0 Prolene vertical mattress interrupted sutures. The central wound was dressed with Mepitel nonadherent dressing followed by gauze and Betadine. Antibiotic ointment was applied to the suture line followed by Kerlix gauze and ABD pads followed by compression CHUCK wrap. Patient tolerated the procedure well. He was sent to PACU in satisfactory condition. Patient will be sent upstairs for continued postop care. Postoperatively will place the VAC. The drain will be removed in 2-3 weeks. The sutures will be removed in 3-[address] weeks[address] At which time will place a stump film inspector in anticipation for the prosthesis. Grafts/Implants Used: AmnioFill Placental Connective Tissue Powder - Admit VTE Documentation VTE Present on Admission: No VTE Mechan Device Prophylaxis: SCD's VTE Pharm Prophylaxis ordered?: Yes Surgery Charges CPT - 40398 ICD-10 - E11.628, L97.523, M86.9, N17.9, Z89.432, I89.0, I87.2, A49.02, E66.9
--- NOTE | 2019-07-15 17:39 | PN_ITS ---
Subjective: Patient was seen and examined today, he underwent a left below the knee amputation today, I talked briefly with plastic surgery who did the amputation today. Patient is alert and does not complain to this examiner at this time of any discomfort. He has no complaints of any chest pain or shortness of breath - Physical Exam Vitals/I&O's: Vital Signs Temp Pulse Resp BP Pulse Ox 98.8 F 74 18 154/58 H 100 07/15/19 15:30 07/15/19 17:30 07/15/19 17:30 07/15/19 17:30 07/15/19 17:30 Oxygen Flow Rate (L/min) 2 Oxygen Delivery Method Nasal Cannula Weight: 175.3 kg Body Mass Index (BMI) 44.6 Finger Stick Blood Glucose 222 Intake and Output for Last 24 Hours 07/13/19 07/14/19 07/15/19 23:59 23:59 23:59 Intake Total 3243.75 / 3443.75 2913.75 / 3413.75 1720 / 1720 Output Total 3365 / 4180 3390 / 3790 2009 Balance -121.25 / -736.25 -476.25 / -376.25 -290 / -290 General: Alert, Oriented x3, Cooperative, No apparent distress, Well developed HEENT: Atraumatic, PERRLA, EOMI, Normocephalic Oral: Moist Mucosa Neck: Supple, No JVD, Negative Carotid Bruits, Trachea Midline, Thyroid Normal Size and Texture Lungs: Clear to auscultation, Normal air movement, No rhonchi, No wheeze, No rales Cardiovascular: Regular rate, Regular Rhythm, Normal S1, Normal S2, No murmurs, PMI Normal, No rub noted, No Gallop Abdomen: Bowel Sounds Present, Soft, Non Tender, Non-Distended, Obese Extremities: No clubbing, No cyanosis, Capillary Refill Less than 3 Seconds, - - Patient's right lower leg is wrapped with surgical dressing and Mateus wrap, left below the knee amputation has surgical dressing surrounding the area Skin: No rashes Neurological: Cranial nerves II-XII grossly intact, Neuro grossly intact Psych/Mental Status: Normal Affect, Appropriate, Alert and oriented to time, place, person, mood and affect Microbiology Past 72 Hours 07/12/19 09:13 Urine, Clean Catch Urine Culture - Final Culture exhibits no growth. Laboratory Results 07/14/19 21:13: POC Glucose 159 H 07/15/19 04:58: WBC 6.8, RBC 3.03 L, Hgb 8.0 L, Hct 26.4 L, MCV 87.1, MCH 26.4 L , MCHC 30.3 L, RDW Std Deviation 52.2 H, RDW Coeff of Pool 16.6 H, Plt Count 216, MPV 10.1, Immature Gran % (Auto) 0.400, Neut % (Auto) 59.1, Lymph % (Auto) 24.4, [place] % (Auto) 11.7 H, Eos % (Auto) 3.8, Baso % (Auto) 0.6, Absolute Neuts (auto) 4.0, Absolute Lymphs (auto) 1.66, Nucleated RBC % 0 07/15/19 04:58: APTT 35.3 07/15/19 04:58: Sodium 140, Potassium 4.7, Chloride 114 H, Carbon Dioxide 20.0 L , Anion Gap 6, BUN 74 H, Creatinine 4.02 H, Estim Creat Clear Calc 23.40, Est GFR (MDRD) Af Amer 19 L, Est GFR (MDRD) Non-Af 16 L, BUN/Creatinine Ratio 18.4, Glucose 138 H, Calcium 8.1 L 07/15/19 04:58: Blood Type O POSITIVE, Antibody Screen NEGATIVE 07/15/19 08:00: POC Glucose 124 H 07/15/19 16:00: POC Glucose 166 H Current Medications Amlodipine Besylate (Norvasc) 10 mg PO DAILY [facility] Last Admin: 07/15/19 17:15 Dose: Not Given Documented by: Carvedilol (Coreg) 3.125 mg PO BID [facility] Last Admin: 07/15/19 08:04 Dose: 3.125 mg Documented by: Dextrose (D50w Syringe) 0 gm IV X1 PRN; Protocol PRN Reason: Hypoglycemia Glucagon () 1 mg IM .X1 PRN PRN Reason: Hypoglycemia Heparin Sodium (Porcine) (Heparin Na) 5,000 unit SC Q8 [facility] Last Admin: 07/15/19 17:15 Dose: Not Given Documented by: Hydralazine HCl (Apresoline) 50 mg PO BID [facility] Last Admin: 07/15/19 17:14 Dose: Not Given Documented by: Sodium Chloride () 250 mls @ 15 mls/hr IV .[id number] PRN PRN Reason: Saline Flush Cefepime HCl 1 gm/ Sodium (Chloride) 50 mls @ 100 mls/hr IV Q24H [facility] Last Infusion: 07/14/19 21:36 Dose: Infused Documented by: Sodium Chloride () 1,000 mls @ 75 mls/hr IV .[id number] [facility] Last Admin: 07/15/19 00:12 Dose: 75 mls/hr Documented by: Insulin Human Lispro (Humalog Kwikpen (Bk)) 0 unit SC ACHS [facility]; Protocol Last Admin: 07/15/19 17:15 Dose: Not Given Documented by: Insulin Human Lispro (Humalog Kwikpen (Bk)) 30 unit SC 0800,1200,1700 [facility] Last Admin: 07/15/19 12:43 Dose: Not Given Documented by: Insulin Human NPH (Humulin N ([facility])) 40 units SC QHS [facility] Last Admin: 07/14/19 21:14 Dose: Not Given Documented by: Melatonin (Melatonin) 3 mg PO QHS PRN PRN PRN Reason: INSOMNIA Metronidazole (Flagyl) 500 mg PO TID [facility] Last Admin: 07/15/19 17:15 Dose: Not Given Documented by: Nutritional Formula (Vu - [place] Flavor) 1 packet PO BIDCM [facility] Last Admin: 07/15/19 08:04 Dose: Not Given Documented by: Ondansetron HCl (Zofran) 4 mg IV Q6H PRN PRN PRN Reason: NAUSEA Last Admin: 07/15/19 00:14 Dose: 4 mg Documented by: Sodium Chloride () 10 - 40 ml IV UD PRN PRN Reason: SALINE FLUSH Last Admin: 07/13/19 13:40 Dose: 20 ml Documented by: Medical Necessity - Tobacco Use Smoking Status: Never smoker Assessment/Plan All Active Problems Diabetic foot infection (Acute) #1 acute renal failure due to ATN related to vancomycin on a backdrop of chronic kidney disease stage III secondary to type 2 diabetes-nephrology is currently seeing the patient, his creatinine today was 4.02. 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
[2019-07-15] MEDS: MethylPREDNISolone 125 MG/2 ML Vial IV (18:38)
[2019-07-15] MEDS: HYDROmorphone 1 MG/ML Syringe IV ×2 (19:35→23:33)
[2019-07-15] MEDS: hydrALAZINE 50 MG Tablet PO (21:40)
[2019-07-15] MEDS: Heparin Injection (Vial) 5,000 UNIT/ML VIAL 5000 UNIT SC (21:40)
[2019-07-15] MEDS: Insulin NPH Human 100 UNITS/ML PEN 40 UNITS SC (21:51)
[2019-07-15 23:10] LABS: Bedside Glucose 215 mg/dL (70-110)
[2019-07-16] VITALS (7 sets, daily range): BP systolic 131–165; BP diastolic 47–68; PULSE 65–73; RESP 16–18; TEMP 36.6–37.2; O2SAT 93–95; BMI 46.6
[2019-07-16] MEDS: oxyCODONE 5 MG Tablet 10 MG PO ×2 (02:38→08:36)
[2019-07-16] MEDS: 0.9% Normal Saline 1,000 ML 75 ML IV ×2 (04:11→16:53)
[2019-07-16 06:01] LABS: Hematocrit 28.9 % (40-54); Hemoglobin 8.7 g/dL (13.0-16.5); Mean Corp Hgb Conc 30.1 g/dL (32-36); Mean Corpuscular Hgb 26.1 pg (27.0-32.0); Mean Corpuscular Volume 86.8 fL (80-94); Mean Platelet Vol. 10.8 fl (6.2-12.0); Platelet Count 218 K/mm3 (150-450); RBC Distribution Width CV 16.2 % (11.6-14.6); RBC Distribution Width SD 50.8 fl (35.1-43.9); Red Blood Count 3.33 M/mm3 (4.6-6.2); White Blood Count 10.9 K/mm3 (4.4-11.0)
[2019-07-16 06:28] LABS: Erythrocyte Sedimentation Rate 127 mm/hr (0-20); Vancomycin, Random Level 26.2 ug/mL (0.0-15.0)
[2019-07-16 06:36] LABS: ALB/GLOB Ratio 0.3 RATIO (0.9-2.4); AST(SGOT) 14 U/L (15-37); Alanine Aminotransfer ALT/SGPT 9 U/L (16-61); Albumin, Serum 1.6 g/dL (3.2-5.0); Alkaline Phosphatase 65 U/L (45-117); Anion Gap 9 (5-15); BUN 76 mg/dL (7-18); BUN/Creat Ratio 19.6 RATIO (10-20); Calcium,Total 7.9 mg/dL (8.5-10.1); Chloride 109 mmol/L (98-107); Creatinine, Serum 3.88 mg/dL (0.70-1.30); EST Glomerular Filtration Rate 17 mL/min (>60); Est Glom Filt Rate - Afr Amer 20 mL/min (>60); Estimated Creatinine Clearance 24.87 ml/min; Globulin 5.8 g/dL (2.2-4.2); Glucose 301 mg/dL (74-106); Potassium 5.6 mmol/L (3.5-5.1); Protein, Total 7.4 g/dL (6.4-8.2); Sodium Level 136 mmol/L (136-145)
[2019-07-16] MEDS: Heparin Injection (Vial) 5,000 UNIT/ML VIAL 5000 UNIT SC ×3 (06:45→22:05)
[2019-07-16] MEDS: metroNIDAZOLE 500 MG Tablet PO ×3 (06:45→22:02)
[2019-07-16] MEDS: hydrALAZINE 50 MG Tablet PO ×2 (08:25→22:02)
[2019-07-16] MEDS: Insulin Lispro 100 UNIT/ML INSULN.PEN SC ×3 (08:25→22:03)
[2019-07-16] MEDS: Carvedilol 3.125 MG TABLET PO ×2 (08:25→22:02)
[2019-07-16] MEDS: amLODIPine 10 MG Tablet PO (08:25)
[2019-07-16] MEDS: Sodium Polystyrene Sulfonate 15 GM/60 ML UDC 30 GM PO (08:26)
[2019-07-16] MEDS: Insulin Lispro 100 UNIT/ML INSULN.PEN 30 UNIT SC ×3 (08:26→18:04)
[2019-07-16 09:16] LABS: Bedside Glucose 268 mg/dL (70-110)
--- NOTE | 2019-07-16 09:40 | PN_ITS ---
Subjective: Patient seen and examined. He had no complaints today. Today's postop day 1 for left below-knee amputation. Review of signs otherwise negative. Labs and vitals reviewed. Potassium is up to 5.6 today. Creatinine is down to 3.88. Vitals/I&O's: Vital Signs Temp Pulse Resp BP Pulse Ox 99.0 F 73 18 165/68 H 95 07/16/19 09:08 07/16/19 09:08 07/16/19 09:08 07/16/19 09:08 07/16/19 09:08 Oxygen Flow Rate (L/min) 2 Oxygen Delivery Method Room Air Weight: 386 lb 7.525 oz Body Mass Index (BMI) 44.6 Finger Stick Blood Glucose 166 Intake and Output for Last 24 Hours 07/14/19 07/15/19 07/16/19 23:59 23:59 23:59 Intake Total 2913.75 / 3413.75 2770 / 3690 2040 / 2040 Output Total 3390 / 3790 2345 / 2705 790 / 790 Balance -476.25 / -376.25 425 / 985 1250 / 1250 General: Alert, Oriented x3, Cooperative, No apparent distress, - - Morbidly obese. HEENT: Atraumatic, PERRLA, EOMI, Normocephalic Oral: Moist Mucosa Neck: Supple, No JVD, Negative Carotid Bruits Lungs: Clear to auscultation, Normal air movement, No rhonchi, No wheeze, No rales Cardiovascular: Regular rate, Regular Rhythm, Normal S1, Normal S2, No murmurs Abdomen: Bowel Sounds Present, Soft, Non Tender, Non-Distended, No Hepato- splenomegaly Extremities: - - left BKA stump in bandage; drain in place. Skin: No rashes, No breakdown Musculoskeletal: No Tenderness to Palpation of Joints or Extremities Lymphatic: No Cervical, Supraclavicular, or Inguinal Adenopathy Neurological: Cranial nerves II-XII grossly intact, Neuro grossly intact, Motor Exam 5/5 strength throughout Psych/Mental Status: Normal Affect, Appropriate, Alert and oriented to time, place, person, mood and affect Microbiology Past 72 Hours 07/12/19 09:13 Urine, Clean Catch Urine Culture - Final Culture exhibits no growth. Laboratory Results 07/15/19 16:00: POC Glucose 166 H 07/15/19 21:49: POC Glucose 215 H 07/16/19 05:15: Random Vancomycin 26.2 H 07/16/19 05:15: WBC 10.9, RBC 3.33 L, Hgb 8.7 L, Hct 28.9 L, MCV 86.8, MCH 26.1 L, MCHC 30.1 L, RDW Std Deviation 50.8 H, RDW Coeff of Pool 16.2 H, Plt Count 218, MPV 10.8, ESR 127 H 07/16/19 05:15: Sodium 136, Potassium 5.6 H, Chloride 109 H, Carbon Dioxide 18.0 L, Anion Gap 9, BUN 76 H, Creatinine 3.88 H, Estim Creat Clear Calc 24.87, Est GFR (MDRD) Af Amer 20 L, Est GFR (MDRD) Non-Af 17 L, BUN/Creatinine Ratio 19.6, Glucose 301 H, Calcium 7.9 L, Total Bilirubin 0.30, AST 14 L, ALT 9 L, Alkaline Phosphatase 65, C-React Prot Ext Range 38.80 H, Total Protein 7.4, Albumin 1.6 L , Globulin 5.8 H, Albumin/Globulin Ratio 0.3 L, Prealbumin 13.0 L 07/16/19 08:24: POC Glucose 268 H Diagnostic Data Chest X-Ray 07/11/19 22:06 IMPRESSION: Decreased inspiration with vascular crowding versus mild vascular congestion. Electronically Signed: Lisette Bell MD at 0:22 EDT , Service support , Renal Ultrasound 07/12/19 15:41 IMPRESSION: No definite acute or significant abnormality seen. Exam is limited by patient''s size. Electronically Signed: Harinder Hampton MD at 18:55 EDT , Service support , Current Medications Amlodipine Besylate (Norvasc) 10 mg PO DAILY [facility] Last Admin: 07/16/19 08:25 Dose: 10 mg Documented by: Carvedilol (Coreg) 3.125 mg PO BID [facility] Last Admin: 07/16/19 08:25 Dose: 3.125 mg Documented by: Dextrose (D50w Syringe) 0 gm IV X1 PRN; Protocol PRN Reason: Hypoglycemia Diazepam (Valium) 5 mg PO 4X/DAY PRN PRN PRN Reason: SPASMS Glucagon () 1 mg IM .X1 PRN PRN Reason: Hypoglycemia Heparin Sodium (Porcine) (Heparin Na) 5,000 unit SC Q8 [facility] Last Admin: 07/16/19 06:45 Dose: 5,000 unit Documented by: Hydralazine HCl (Apresoline) 50 mg PO BID [facility] Last Admin: 07/16/19 08:25 Dose: 50 mg Documented by: Hydromorphone HCl (Dilaudid Inj) 1 mg IV Q3H PRN PRN PRN Reason: Pain Score 6-10/10 Last Admin: 07/15/19 23:33 Dose: 1 mg Documented by: Sodium Chloride () 250 mls @ 15 mls/hr IV .[id number] PRN PRN Reason: Saline Flush Cefepime HCl 1 gm/ Sodium (Chloride) 50 mls @ 100 mls/hr IV Q24H [facility] Last Infusion: 07/15/19 22:06 Dose: Infused Documented by: Sodium Chloride () 1,000 mls @ 75 mls/hr IV .[id number] [facility]CLUD[facility] THE [facility] Last Admin: 07/16/19 04:11 Dose: 75 mls/hr Documented by: Insulin Human Lispro (Humalog Kwikpen (Bkc)) 0 unit SC ACHS [facility]; Protocol Last Admin: 07/16/19 08:25 Dose: 6 u Documented by: Insulin Human Lispro (Humalog Kwikpen (Bkc)) 30 unit SC 0800,1200,1700 [facility] Last Admin: 07/16/19 08:26 Dose: 30 units Documented by: Insulin Human NPH (Humulin N (Bkc)) 40 units SC QHS [facility] Last Admin: 07/15/19 21:51 Dose: 40 u Documented by: Melatonin (Melatonin) 3 mg PO QHS PRN PRN PRN Reason: INSOMNIA Metronidazole (Flagyl) 500 mg PO TID [facility] Last Admin: 07/16/19 06:45 Dose: 500 mg Documented by: Nutritional Formula (Vu - [place] Flavor) 1 packet PO BIDCM [facility] Last Admin: 07/16/19 08:25 Dose: 1 packet Documented by: Ondansetron HCl (Zofran) 4 mg IV Q6H PRN PRN PRN Reason: NAUSEA Last Admin: 07/15/19 19:35 Dose: 4 mg Documented by: Oxycodone HCl (Oxyir) 10 mg PO Q4H PRN PRN PRN Reason: Pain Score 4-5/10 Last Admin: 07/16/19 08:36 Dose: 10 mg Documented by: Sodium Chloride () 10 - 40 ml IV UD PRN PRN Reason: SALINE FLUSH Last Admin: 07/13/19 13:40 Dose: 20 ml Documented by: STROKE Vital Signs/Narrative: Vital Signs Temp Pulse Resp BP Pulse Ox 07/16/19 09:08 99.0 F 73 18 165/68 H 95 07/16/19 08:25 69 07/16/19 06:48 98.3 F 69 16 146/61 H 95 Medical Necessity - Tobacco Use Smoking Status: Never smoker Assessment/Plan All Active Problems Diabetic foot infection (Acute) 1. JOANNA on CKD 3 * due to ATN from vancomycin use. * nephrology on board. Cr was 5.81 on admission, and is now down to 3.88 * being hydrated with IVF; will monitor * 2. Hyperkalemia: K today is 5.6. Will give kayexalate and trend potassium level 3. Chronic nonhealing left foot neuropathic ulcer * Due to diabetes. Status post left BKA. Today's postop day 1. * Plastic surgery on board. PT OT on board. * 4. 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 * A1c was 8.2 on 06/29/2019. * On NPH insulin 40 units nightly and insulin sliding scale. Accu-Cheks AC at bedtime. 5. Non-anion gap metabolic acidosis: * Bicarb is down to 18 with anion gap of 9. * This likely due to JOANNA. * Will monitor for now and if it worsens, patient may need sodium bicarb tablets. * 6. Benign essential hypertension: * On amlodipine and carvedilol. lisinopril on hold o/a of JOANNA 7. Anemia * is an iron deficiency anemia * Hemoglobin is 8.7. Some blood loss from DKA likely also contributed to this. * This is however around his baseline with baseline being 8-9. * Iron panel done in June 2019 showed low iron levels with low iron saturation and low TIBC. * Will monitor. 8. Morbid obesity: BMI is 44. This complicates acute care and management, expected recovery and prognosis. DVT prophylaxis: heparin Inpatient E&M: 17594 [facility] Hosp L3
[2019-07-16 10:35] LABS: Ferritin 205 ng/mL (26-388)
[2019-07-16] MEDS: HYDROmorphone 1 MG/ML Syringe IV ×2 (11:46→20:03)
[2019-07-16 12:16] LABS: Bedside Glucose 275 mg/dL (70-110)
--- NOTE | 2019-07-16 15:07 | PN.SURG_ITS ---
Subjective: Postop #1 Patient is resting comfortably. - Physical Exam Vitals/I&O's: Vital Signs Temp Pulse Resp BP Pulse Ox 98.8 F 72 18 134/47 H 93 07/16/19 14:43 07/16/19 14:43 07/16/19 14:43 07/16/19 14:43 07/16/19 14:43 Oxygen Flow Rate (L/min) 2 Oxygen Delivery Method Room Air Weight: 386 lb 7.525 oz Body Mass Index (BMI) 44.6 Finger Stick Blood Glucose 166 Intake and Output for Last 24 Hours 07/14/19 07/15/19 07/16/19 23:59 23:59 23:59 Intake Total 2913.75 / 3413.75 2770 / 3690 2540 / 2540 Output Total 3390 / 3790 2345 / 2705 990 / 990 Balance -476.25 / -376.25 425 / 985 1550 / 1550 General: Alert, Oriented x3 HEENT: PERRLA, EOMI Oral: Moist Mucosa Neck: Supple Abdomen: Soft, Non-Distended Skin: Ulcer/ Wound - central stump wound is stable. No active bleeding noted. Redressed with saline gauze dressing and dry Kerlix and compression marlo wrap., Incision - Stump incision dry and intact. No clinical evidence of hematoma. Neurological: Cranial nerves II-XII grossly intact Psych/Mental Status: Normal Affect, Appropriate Microbiology Past 72 Hours 07/12/19 09:13 Urine, Clean Catch Urine Culture - Final Culture exhibits no growth. Laboratory Results 07/15/19 16:00: POC Glucose 166 H 07/15/19 21:49: POC Glucose 215 H 07/16/19 05:15: Random Vancomycin 26.2 H 07/16/19 05:15: WBC 10.9, RBC 3.33 L, Hgb 8.7 L, Hct 28.9 L, MCV 86.8, MCH 26.1 L, MCHC 30.1 L, RDW Std Deviation 50.8 H, RDW Coeff of Pool 16.2 H, Plt Count 218, MPV 10.8, ESR 127 H 07/16/19 05:15: Sodium 136, Potassium 5.6 H, Chloride 109 H, Carbon Dioxide 18.0 L, Anion Gap 9, BUN 76 H, Creatinine 3.88 H, Estim Creat Clear Calc 24.87, Est GFR (MDRD) Af Amer 20 L, Est GFR (MDRD) Non-Af 17 L, BUN/Creatinine Ratio 19.6, Glucose 301 H, Calcium 7.9 L, Total Bilirubin 0.30, AST 14 L, ALT 9 L, Alkaline Phosphatase 65, C-React Prot Ext Range 38.80 H, Total Protein 7.4, Albumin 1.6 L , Globulin 5.8 H, Albumin/Globulin Ratio 0.3 L, Prealbumin 13.0 L 07/16/19 05:15: Ferritin 205 07/16/19 08:24: POC Glucose 268 H 07/16/19 11:40: POC Glucose 275 H Current Medications Amlodipine Besylate (Norvasc) 10 mg PO DAILY [facility] Last Admin: 07/16/19 08:25 Dose: 10 mg Documented by: Carvedilol (Coreg) 3.125 mg PO BID [facility] Last Admin: 07/16/19 08:25 Dose: 3.125 mg Documented by: Dextrose (D50w Syringe) 0 gm IV X1 PRN; Protocol PRN Reason: Hypoglycemia Diazepam (Valium) 5 mg PO 4X/DAY PRN PRN PRN Reason: SPASMS Glucagon () 1 mg IM .X1 PRN PRN Reason: Hypoglycemia Heparin Sodium (Porcine) (Heparin Na) 5,000 unit SC Q8 [facility] Last Admin: 07/16/19 14:56 Dose: 5,000 unit Documented by: Hydralazine HCl (Apresoline) 50 mg PO BID [facility] Last Admin: 07/16/19 08:25 Dose: 50 mg Documented by: Hydromorphone HCl (Dilaudid Inj) 1 mg IV Q3H PRN PRN PRN Reason: Pain Score 6-10/10 Last Admin: 07/16/19 11:46 Dose: 1 mg Documented by: Sodium Chloride () 250 mls @ 15 mls/hr IV .[id number] PRN PRN Reason: Saline Flush Cefepime HCl 1 gm/ Sodium (Chloride) 50 mls @ 100 mls/hr IV Q24H [facility] Last Infusion: 07/15/19 22:06 Dose: Infused Documented by: Sodium Chloride () 1,000 mls @ 75 mls/hr IV .[id number] [facility] Last Admin: 07/16/19 04:11 Dose: 75 mls/hr Documented by: Insulin Human Lispro (Humalog Kwikpen (Bk)) 0 unit SC ACHS [facility]; Protocol Last Admin: 07/16/19 11:42 Dose: 6 u Documented by: Insulin Human Lispro (Humalog Kwikpen (Bkc)) 30 unit SC 0800,1200,1700 [facility] Last Admin: 07/16/19 11:42 Dose: 30 units Documented by: Insulin Human NPH (Humulin N (Bk)) 40 units SC QHS [facility] Last Admin: 07/15/19 21:51 Dose: 40 u Documented by: Linezolid (Zyvox) 600 mg PO BID [facility] Melatonin (Melatonin) 3 mg PO QHS PRN PRN PRN Reason: INSOMNIA Metronidazole (Flagyl) 500 mg PO TID [facility] Last Admin: 07/16/19 14:56 Dose: 500 mg Documented by: Nutritional Formula ([facility] - [place] [facility]) [facility] Last Admin: 07/16/19 08:25 Dose: 1 packet Documented by: Ondansetron HCl (Zofran) 4 mg IV Q6H PRN PRN PRN Reason: NAUSEA Last Admin: 07/15/19 19:35 Dose: 4 mg Documented by: Oxycodone HCl (Oxyir) 10 mg PO Q4H PRN PRN PRN Reason: Pain Score 4-5/10 Last Admin: 07/16/19 08:36 Dose: 10 mg Documented by: Sodium Chloride () 10 - 40 ml IV UD PRN PRN Reason: SALINE FLUSH Last Admin: 07/13/19 13:40 Dose: 20 ml Documented by: Medical Necessity - Tobacco Use Smoking Status: Never smoker Assessment/Plan All Active Problems MRSA (methicillin resistant Staphylococcus aureus) (Acute) Diabetic foot infection (Acute) 1. Nonhealing infected diabetic ulcers left foot. 2. Osteomyelitis. 3. Acute kidney injury from recent medication (Vancomycin). 4. s/p TMA left foot. 5. Lymphedema lower extremities. 6. Venous insufficiency lower extremities. 7. Obesity. 8. MRSA. Incisions are dry and intact. Central stump wound is stable. No active bleeding. Redressed with saline gauze. Will have VAC applied on Thursday. Continue Cefepime and Flagyl. The Vancomycin is on hold because of very high level of 40. These antibiotics are treating recent cultures from 4/15/20 which showed E. coli, Pseudomonas aeroginosa, MRSA, Corynebacterium striatum, Streptococcus Group A, and Anaerobic cocci. His initial Creatinine upon admission was 5.81. Today it is 3.88. Anticipate increased metabolic demands from the infection. Prealbumin is 13.0. Encourage nutritional supplementation with protein to help the healing process. He would benefit from a short stay at an ECF or a Rehab Unit before going home. After discharge, [facility]up [facility].
[2019-07-16 16:55] LABS: Bedside Glucose 248 mg/dL (70-110)
--- NOTE | 2019-07-16 17:38 | PCM.PN.REN ---
Subjective: no new complaints aleman in today - Physical Exam Vitals/I&O's: Vital Signs Temp Pulse Resp BP Pulse Ox 98.8 F 72 18 134/47 H 93 07/16/19 14:43 07/16/19 14:43 07/16/19 14:43 07/16/19 14:43 07/16/19 14:43 Oxygen Flow Rate (L/min) 2 Oxygen Delivery Method Room Air Weight: 175.3 kg Body Mass Index (BMI) 44.6 Finger Stick Blood Glucose 166 Intake and Output for Last 24 Hours 07/14/19 07/15/19 07/16/19 23:59 23:59 23:59 Intake Total 2913.75 / 3413.75 2770 / 3690 3490 / 3490 Output Total 3390 / 3790 2345 / 2705 990 / 990 Balance -476.25 / -376.25 425 / 985 2500 / 2500 General: Alert, Oriented x3, Cooperative HEENT: Atraumatic, PERRLA, EOMI, Normocephalic Neck: Supple, No JVD, Negative Carotid Bruits Lungs: Clear to auscultation, Normal air movement Cardiovascular: Regular rate, No murmurs Abdomen: Bowel Sounds Present, Soft, Non Tender Extremities: No edema, Capillary Refill Less than 3 Seconds Skin: No rashes, No breakdown Musculoskeletal: No Tenderness to Palpation of Joints or Extremities Neurological: Cranial nerves II-XII grossly intact Psych/Mental Status: Normal Affect, Appropriate Microbiology Past 72 Hours 07/12/19 09:13 Urine, Clean Catch Urine Culture - Final Culture exhibits no growth. Laboratory Results 07/15/19 21:49: POC Glucose 215 H 07/16/19 05:15: Random Vancomycin 26.2 H 07/16/19 05:15: WBC 10.9, RBC 3.33 L, Hgb 8.7 L, Hct 28.9 L, MCV 86.8, MCH 26.1 L, MCHC 30.1 L, RDW Std Deviation 50.8 H, RDW Coeff of Pool 16.2 H, Plt Count 218, MPV 10.8, ESR 127 H 07/16/19 05:15: Sodium 136, Potassium 5.6 H, Chloride 109 H, Carbon Dioxide 18.0 L, Anion Gap 9, BUN 76 H, Creatinine 3.88 H, Estim Creat Clear Calc 24.87, Est GFR (MDRD) Af Amer 20 L, Est GFR (MDRD) Non-Af 17 L, BUN/Creatinine Ratio 19.6, Glucose 301 H, Calcium 7.9 L, Total Bilirubin 0.30, AST 14 L, ALT 9 L, Alkaline Phosphatase 65, C-React Prot Ext Range 38.80 H, Total Protein 7.4, Albumin 1.6 L, Globulin 5.8 H, Albumin/Globulin Ratio 0.3 L, Prealbumin 13.0 L 07/16/19 05:15: Ferritin 205 07/16/19 08:24: POC Glucose 268 H 07/16/19 11:40: POC Glucose 275 H 07/16/19 16:50: POC Glucose 248 H Current Medications Amlodipine Besylate (Norvasc) 10 mg PO DAILY [facility] Last Admin: 07/16/19 08:25 Dose: 10 mg Documented by: Carvedilol (Coreg) 3.125 mg PO BID [facility] Last Admin: 07/16/19 08:25 Dose: 3.125 mg Documented by: Dextrose (D50w Syringe) 0 gm IV X1 PRN; Protocol PRN Reason: Hypoglycemia Diazepam (Valium) 5 mg PO 4X/DAY PRN PRN PRN Reason: SPASMS Glucagon () 1 mg IM .X1 PRN PRN Reason: Hypoglycemia Heparin Sodium (Porcine) (Heparin Na) 5,000 unit SC Q8 [facility] Last Admin: 07/16/19 14:56 Dose: 5,000 unit Documented by: Hydralazine HCl (Apresoline) 50 mg PO BID [facility] Last Admin: 07/16/19 08:25 Dose: 50 mg Documented by: Hydromorphone HCl (Dilaudid Inj) 1 mg IV Q3H PRN PRN PRN Reason: Pain Score 6-10/10 Last Admin: 07/16/19 11:46 Dose: 1 mg Documented by: Sodium Chloride () 250 mls @ 15 mls/hr IV .[id number] PRN PRN Reason: Saline Flush Cefepime HCl 1 gm/ Sodium (Chloride) 50 mls @ 100 mls/hr IV Q24H [facility] Last Infusion: 07/15/19 22:06 Dose: Infused Documented by: Sodium Bicarbonate 150 meq/ (Dextrose) 1,150 mls @ 75 mls/hr IV .[id number] [facility] Insulin Human Lispro (Humalog Kwikpen (Bkc)) 0 unit SC ACHS [facility]; Protocol Last Admin: 07/16/19 16:51 Dose: Not Given Documented by: Insulin Human Lispro (Humalog Kwikpen (Bkc)) 30 unit SC 0800,1200,1700 [facility] Last Admin: 07/16/19 16:51 Dose: Not Given Documented by: Insulin Human NPH (Humulin N (Bk)) 40 units SC QHS [facility] Last Admin: 07/15/19 21:51 Dose: 40 u Documented by: Linezolid (Zyvox) 600 mg PO BID [facility] Melatonin (Melatonin) 3 mg PO QHS PRN PRN PRN Reason: INSOMNIA Metronidazole (Flagyl) 500 mg PO TID [facility] Last Admin: 07/16/19 14:56 Dose: 500 mg Documented by: Nutritional Formula (Vu - [place] Flavor) [facility] Last Admin: 07/16/19 16:49 Dose: Not Given Documented by: Ondansetron HCl (Zofran) 4 mg IV Q6H PRN PRN PRN Reason: NAUSEA Last Admin: 07/15/19 19:35 Dose: 4 mg Documented by: Oxycodone HCl (Oxyir) 10 mg PO Q4H PRN PRN PRN Reason: Pain Score 4-5/10 Last Admin: 07/16/19 08:36 Dose: 10 mg Documented by: Sodium Chloride () 10 - 40 ml IV UD PRN PRN Reason: SALINE FLUSH Last Admin: 07/13/19 13:40 Dose: 20 ml Documented by: Medical Necessity - Tobacco Use Smoking Status: Never smoker Assessment/Plan All Active Problems MRSA (methicillin resistant Staphylococcus aureus) (Acute) Diabetic foot infection (Acute) Acute renal failure, chronic kidney disease stage III. Baseline creatinine at the time of last admission was around 1.6. admission creatinine is 5.7. Only prescription that I see according to history is antibiotics. Urine analysis shows some proteinuria but no leukocytes. Urine eosinophils are pending but with negative leukocytes this is likely to be negative. Renal ultrasound looks acceptable. most likely this is ATN related to vancomycin. Reviewed ID notes. He is currently taken off vancomycin. cr is better Hyperkalemia. received kayexalate this am. acidosis. likely contributing to hyperkalemia. change fluids to bicarbonate Hypertension. Current medication list reviewed. Blood pressure is ok.
[2019-07-16] MEDS: 0.9% Saline Lock 10 ML Syringe IV (20:03)
[2019-07-16] MEDS: Insulin NPH Human 100 UNITS/ML PEN 40 UNITS SC (22:03)
[2019-07-16] MEDS: Linezolid 600 MG Tablet PO (22:03)
[2019-07-16 22:36] LABS: Bedside Glucose 261 mg/dL (70-110)
[2019-07-17] VITALS (13 sets, daily range): BP systolic 112–147; BP diastolic 41–60; PULSE 65–76; RESP 16–18; TEMP 36.3–36.9; O2SAT 92–95; BMI 46.6
[2019-07-17 05:31] LABS: Absolute Lymphocyte Count 1.44 X10^3/uL (0.83-4.51); Absolute Neutrophil Count 6.3 X10^3/uL (2.0-7.7); Basophil# 0.02 X10^3/uL; Basophil% 0.2 % (0-1); Eosinophil# 0.12 X10^3/uL; Eosinophils% 1.4 % (0-5); Hematocrit 23.2 % (40-54); Hemoglobin 7.3 g/dL (13.0-16.5); Lymphocyte # 1.44 X10^3/ul (4.0); Lymphocyte % 16.4 % (19-41); Mean Corp Hgb Conc 31.5 g/dL (32-36); Mean Corpuscular Hgb 27.3 pg (27.0-32.0); Mean Corpuscular Volume 86.9 fL (80-94); Monocyte# 0.89 X10^3/uL; Monocyte% 10.1 % (0-10); NRBC Flagged by Analyzer 0 % (0-5); Neutrophil # 6.29 X10^3/uL (2.7-7.7); Neutrophil % 71.4 % (47-70); Platelet Count 188 K/mm3 (150-450); RBC Distribution Width SD 52.2 fl (35.1-43.9); Red Blood Count 2.67 M/mm3 (4.6-6.2); White Blood Count 8.8 K/mm3 (4.4-11.0)
[2019-07-17 05:46] LABS: Anion Gap 7 (5-15); BUN 85 mg/dL (7-18); BUN/Creat Ratio 20.2 RATIO (10-20); Calcium,Total 7.5 mg/dL (8.5-10.1); Chloride 107 mmol/L (98-107); EST Glomerular Filtration Rate 15 mL/min (>60); Est Glom Filt Rate - Afr Amer 19 mL/min (>60); Estimated Creatinine Clearance 22.97 ml/min; Glucose 254 mg/dL (74-106); Potassium 4.7 mmol/L (3.5-5.1); Sodium Level 135 mmol/L (136-145)
[2019-07-17] MEDS: metroNIDAZOLE 500 MG Tablet PO ×3 (06:19→22:23)
[2019-07-17] MEDS: Heparin Injection (Vial) 5,000 UNIT/ML VIAL 5000 UNIT SC (06:19)
[2019-07-17] MEDS: oxyCODONE 5 MG Tablet 10 MG PO ×3 (06:41→19:37)
[2019-07-17 07:01] LABS: Bedside Glucose 243 mg/dL (70-110)
[2019-07-17] MEDS: Insulin Lispro 100 UNIT/ML INSULN.PEN 30 UNIT SC ×3 (09:05→17:08)
[2019-07-17] MEDS: amLODIPine 10 MG Tablet PO (09:07)
[2019-07-17] MEDS: hydrALAZINE 50 MG Tablet PO ×2 (09:08→22:22)
[2019-07-17] MEDS: Carvedilol 3.125 MG TABLET PO ×2 (09:08→22:22)
[2019-07-17] MEDS: Linezolid 600 MG Tablet PO ×2 (09:08→22:22)
[2019-07-17] MEDS: HYDROmorphone 1 MG/ML Syringe IV ×2 (09:13→22:14)
--- NOTE | 2019-07-17 10:08 | PN_ITS ---
Subjective: Patient seen and examined. No active events overnight and he had no complaints. Review of symptoms otherwise negative. Labs and vitals reviewed. He has remained hemodynamically stable. However creatinine is trended up to 4.2 today. Hemoglobin today is down to 7.3. Vitals/I&O's: Vital Signs Temp Pulse Resp BP Pulse Ox 97.6 F L 76 18 147/53 H 92 07/17/19 09:16 07/17/19 09:16 07/17/19 09:16 07/17/19 09:16 07/17/19 09:16 Oxygen Flow Rate (L/min) 2 Oxygen Delivery Method Room Air Weight: 386 lb 7.525 oz Body Mass Index (BMI) 44.6 Finger Stick Blood Glucose 166 Intake and Output for Last 24 Hours 07/15/19 07/16/19 07/17/19 23:59 23:59 23:59 Intake Total 2770 / 3690 5130 / 5130 150 / 150 Output Total 2345 / 2705 1870 / 1870 120 / 120 Balance 425 / 985 3260 / 3260 30 / 30 General: Alert, Oriented x3, Cooperative, No apparent distress, - - Morbidly obese. HEENT: Atraumatic, PERRLA, EOMI, Normocephalic Oral: Moist Mucosa Neck: Supple, No JVD, Negative Carotid Bruits Lungs: Clear to auscultation, Normal air movement, No rhonchi, No wheeze, No rales Cardiovascular: Regular rate, Regular Rhythm, Normal S1, Normal S2, No murmurs Abdomen: Bowel Sounds Present, Soft, Non Tender, Non-Distended, No Hepato- splenomegaly Extremities: - - left BKA stump in bandage; drain in place. Skin: No rashes, No breakdown Musculoskeletal: No Tenderness to Palpation of Joints or Extremities Lymphatic: No Cervical, Supraclavicular, or Inguinal Adenopathy Neurological: Cranial nerves II-XII grossly intact, Neuro grossly intact, Motor Exam 5/5 strength throughout Psych/Mental Status: Normal Affect, Appropriate, Alert and oriented to time, place, person, mood and affect Microbiology Past 72 Hours 07/12/19 09:13 Urine, Clean Catch Urine Culture - Final Culture exhibits no growth. Laboratory Results 07/16/19 05:15: Ferritin 205 07/16/19 11:40: POC Glucose 275 H 07/16/19 16:50: POC Glucose 248 H 07/16/19 22:00: POC Glucose 261 H 07/17/19 04:55: WBC 8.8, RBC 2.67 L, Hgb 7.3 L, Hct 23.2 L, MCV 86.9, MCH 27.3, MCHC 31.5 L, RDW Std Deviation 52.2 H, RDW Coeff of Pool 17.0 H, Plt Count 188, MPV 11.0, Immature Gran % (Auto) 0.500, Neut % (Auto) 71.4 H, Lymph % (Auto) 16.4 L, Brown % (Auto) 10.1 H, Eos % (Auto) 1.4, Baso % (Auto) 0.2, Absolute Neuts (auto) 6.3, Absolute Lymphs (auto) 1.44, Nucleated RBC % 0 07/17/19 04:55: Sodium 135 L, Potassium 4.7, Chloride 107, Carbon Dioxide 21.0, Anion Gap 7, BUN 85 H, Creatinine 4.20 H, Estim Creat Clear Calc 22.97, Est GFR (MDRD) Af Amer 19 L, Est GFR (MDRD) Non-Af 15 L, BUN/Creatinine Ratio 20.2 H, Glucose 254 H, Calcium 7.5 L 07/17/19 06:22: POC Glucose 243 H Diagnostic Data Chest X-Ray 07/11/19 22:06 IMPRESSION: Decreased inspiration with vascular crowding versus mild vascular congestion. Electronically Signed: Lisette Bell MD at 0:22 EDT , Service support , Renal Ultrasound 07/12/19 15:41 IMPRESSION: No definite acute or significant abnormality seen. Exam is limited by patient''s size. Electronically Signed: Harinder Hampton MD at 18:55 EDT , Service support , Current Medications Amlodipine Besylate (Norvasc) 10 mg PO DAILY [facility] Last Admin: 07/17/19 09:07 Dose: 10 mg Documented by: Carvedilol (Coreg) 3.125 mg PO BID [facility] Last Admin: 07/17/19 09:08 Dose: 3.125 mg Documented by: Dextrose (D50w Syringe) 0 gm IV X1 PRN; Protocol PRN Reason: Hypoglycemia Diazepam (Valium) 5 mg PO 4X/DAY PRN PRN PRN Reason: SPASMS Glucagon () 1 mg IM .X1 PRN PRN Reason: Hypoglycemia Heparin Sodium (Porcine) (Heparin Na) 5,000 unit SC Q8 [facility] Last Admin: 07/17/19 06:19 Dose: 5,000 unit Documented by: Hydralazine HCl (Apresoline) 50 mg PO BID [facility] Last Admin: 07/17/19 09:08 Dose: 50 mg Documented by: Hydromorphone HCl (Dilaudid Inj) 1 mg IV Q3H PRN PRN PRN Reason: Pain Score 6-10/10 Last Admin: 07/17/19 09:13 Dose: 1 mg Documented by: Sodium Chloride () 250 mls @ 15 mls/hr IV .[id number] PRN PRN Reason: Saline Flush Cefepime HCl 1 gm/ Sodium (Chloride) 50 mls @ 100 mls/hr IV Q24H [facility] Last Infusion: 07/16/19 22:54 Dose: Infused Documented by: Sodium Bicarbonate 150 meq/ (Dextrose) 1,150 mls @ 75 mls/hr IV .[id number] [facility] Last Admin: 07/16/19 18:26 Dose: 75 mls/hr Documented by: Insulin Human Lispro (Humalog Kwikpen (Bkc)) 0 unit SC ACHS [facility]; Protocol Last Admin: 07/17/19 09:05 Dose: Not Given Documented by: Insulin Human Lispro (Humalog Kwikpen (Bkc)) 30 unit SC 0800,1200,1700 [facility] Last Admin: 07/17/19 09:05 Dose: 30 units Documented by: Insulin Human NPH (Humulin N (Bkc)) 40 units SC QHS [facility] Last Admin: 07/16/19 22:03 Dose: 40 u Documented by: Linezolid (Zyvox) 600 mg PO BID [facility] Last Admin: 07/17/19 09:08 Dose: 600 mg Documented by: Melatonin (Melatonin) 3 mg PO QHS PRN PRN PRN Reason: INSOMNIA Metronidazole (Flagyl) 500 mg PO TID [facility] Last Admin: 07/17/19 06:19 Dose: 500 mg Documented by: Nutritional Formula (Vu - [place] Flavor) 1 packet PO BIDCM [facility] Last Admin: 07/17/19 09:07 Dose: 1 packet Documented by: Ondansetron HCl (Zofran) 4 mg IV Q6H PRN PRN PRN Reason: NAUSEA Last Admin: 07/15/19 19:35 Dose: 4 mg Documented by: Oxycodone HCl (Oxyir) 10 mg PO Q4H PRN PRN PRN Reason: Pain Score 4-5/10 Last Admin: 07/17/19 06:41 Dose: 10 mg Documented by: Sodium Chloride () 10 - 40 ml IV UD PRN PRN Reason: SALINE FLUSH Last Admin: 07/16/19 20:03 Dose: 10 ml Documented by: STROKE Vital Signs/Narrative: Vital Signs Temp Pulse Resp BP Pulse Ox 07/17/19 09:16 97.6 F L 76 18 147/53 H 92 07/17/19 09:08 76 Medical Necessity - Tobacco Use Smoking Status: Never smoker Assessment/Plan All Active Problems MRSA (methicillin resistant Staphylococcus aureus) (Acute) Diabetic foot infection (Acute) 1. JOANNA on CKD 3 * due to ATN from vancomycin use. * nephrology on board. Cr has trended up to 4.2 today * being hydrated with IVF; will monitor * 2. Hyperkalemia: K is down to 4.7 today 3. Chronic nonhealing left foot neuropathic ulcer * Due to diabetes. Status post left BKA. Today's postop day 2. drain in place in stump. * Plastic surgery on board. PT OT on board. * 4. 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 * A1c was 8.2 on 06/29/2019. * On NPH insulin 40 units nightly and insulin sliding scale. Accu-Cheks AC at bedtime. 5. Non-anion gap metabolic acidosis: * bicarb is now 21. anion gap is 7 * This likely due to JOANNA. * Will monitor for now and if it worsens, patient may need sodium bicarb tablets. * 6. Benign essential hypertension: * On amlodipine and carvedilol. lisinopril on hold o/a of JOANNA 7. Anemia * is an iron deficiency anemia * Hemoglobin is down to 7.3. Some blood loss from BKA likely also contributed to this. * Hb has ranged between 7-9 since admission. * repeat Hb is 6.8. Will transfuse one unit of PRBC * 8. Morbid obesity: BMI is 44. This complicates acute care and management, expected recovery and prognosis. DVT prophylaxis: SCDs. hold heparin o/a of anemia Inpatient E&M: 72803 Subs Hosp L2
[2019-07-17 10:55] LABS: Hemoglobin 6.8 g/dL (13.0-16.5)
[2019-07-17] MEDS: Insulin Lispro 100 UNIT/ML INSULN.PEN SC (11:26)
[2019-07-17 11:41] LABS: Bedside Glucose 240 mg/dL (70-110)
[2019-07-17] MEDS: guaiFENesin 1,200 MG Tablet 1200 MG PO ×2 (16:08→22:23)
[2019-07-17 16:21] LABS: Bedside Glucose 135 mg/dL (70-110)
--- NOTE | 2019-07-17 16:55 | PCM.PN.REN ---
Subjective: no new events - Physical Exam Vitals/I&O's: Vital Signs Temp Pulse Resp BP Pulse Ox 97.6 F L 73 18 139/45 H 94 07/17/19 16:09 07/17/19 16:09 07/17/19 16:09 07/17/19 16:09 07/17/19 16:09 Oxygen Flow Rate (L/min) 2 Oxygen Delivery Method Room Air Weight: 175.3 kg Body Mass Index (BMI) 44.6 Finger Stick Blood Glucose 166 Intake and Output for Last 24 Hours 07/15/19 07/16/19 07/17/19 23:59 23:59 23:59 Intake Total 2770 / 3690 5130 / 5130 1937.5 / 1937.5 Output Total 2345 / 2705 1870 / 1870 300 / 300 Balance 425 / 985 3260 / 3260 1637.5 / 1637.5 General: Alert, Oriented x3, Cooperative HEENT: Atraumatic, PERRLA, EOMI, Normocephalic Neck: Supple, No JVD, Negative Carotid Bruits Lungs: Clear to auscultation, Normal air movement Cardiovascular: Regular rate, No murmurs Abdomen: Bowel Sounds Present, Soft, Non Tender Extremities: No edema, Capillary Refill Less than 3 Seconds Skin: No rashes, No breakdown Musculoskeletal: No Tenderness to Palpation of Joints or Extremities Neurological: Cranial nerves II-XII grossly intact Psych/Mental Status: Normal Affect, Appropriate Microbiology Past 72 Hours 07/12/19 09:13 Urine, Clean Catch Urine Culture - Final Culture exhibits no growth. Laboratory Results 07/15/19 04:58: Crossmatch See Detail 07/16/19 16:50: POC Glucose 248 H 07/16/19 22:00: POC Glucose 261 H 07/17/19 04:55: WBC 8.8, RBC 2.67 L, Hgb 7.3 L, Hct 23.2 L, MCV 86.9, MCH 27.3, MCHC 31.5 L, RDW Std Deviation 52.2 H, RDW Coeff of Pool 17.0 H, Plt Count 188, MPV 11.0, Immature Gran % (Auto) 0.500, Neut % (Auto) 71.4 H, Lymph % (Auto) 16.4 L, Boyle % (Auto) 10.1 H, Eos % (Auto) 1.4, Baso % (Auto) 0.2, Absolute Neuts (auto) 6.3, Absolute Lymphs (auto) 1.44, Nucleated RBC % 0 07/17/19 04:55: Sodium 135 L, Potassium 4.7, Chloride 107, Carbon Dioxide 21.0, Anion Gap 7, BUN 85 H, Creatinine 4.20 H, Estim Creat Clear Calc 22.97, Est GFR (MDRD) Af Amer 19 L, Est GFR (MDRD) Non-Af 15 L, BUN/Creatinine Ratio 20.2 H, Glucose 254 H, Calcium 7.5 L 07/17/19 06:22: POC Glucose 243 H 07/17/19 10:35: Hgb 6.8 L 07/17/19 11:21: POC Glucose 240 H 07/17/19 16:13: POC Glucose 135 H Current Medications Amlodipine Besylate (Norvasc) 10 mg PO DAILY [facility] Last Admin: 07/17/19 09:07 Dose: 10 mg Documented by: Carvedilol (Coreg) 3.125 mg PO BID [facility] Last Admin: 07/17/19 09:08 Dose: 3.125 mg Documented by: Dextrose (D50w Syringe) 0 gm IV X1 PRN; Protocol PRN Reason: Hypoglycemia Diazepam (Valium) 5 mg PO 4X/DAY PRN PRN PRN Reason: SPASMS Glucagon () 1 mg IM .X1 PRN PRN Reason: Hypoglycemia Guaifenesin (Mucinex) 1,200 mg PO BID [facility] Last Admin: 07/17/19 16:08 Dose: 1,200 mg Documented by: Heparin Sodium (Porcine) (Heparin Na) 5,000 unit SC Q8 [facility] Last Admin: 07/17/19 06:19 Dose: 5,000 unit Documented by: Hydralazine HCl (Apresoline) 50 mg PO BID [facility] Last Admin: 07/17/19 09:08 Dose: 50 mg Documented by: Hydromorphone HCl (Dilaudid Inj) 1 mg IV Q3H PRN PRN PRN Reason: Pain Score 6-10/10 Last Admin: 07/17/19 09:13 Dose: 1 mg Documented by: Sodium Chloride () 250 mls @ 15 mls/hr IV .[id number] PRN PRN Reason: Saline Flush Cefepime HCl 1 gm/ Sodium (Chloride) 50 mls @ 100 mls/hr IV Q24H [facility] Last Infusion: 07/16/19 22:54 Dose: Infused Documented by: Sodium Bicarbonate 150 meq/ (Dextrose) 1,150 mls @ 75 mls/hr IV .[id number] [facility] Last Infusion: 07/17/19 14:30 Dose: 0 mls/hr Documented by: Insulin Human Lispro (Humalog Kwikpen (Bkc)) 0 unit SC ACHS [facility]; Protocol Last Admin: 07/17/19 16:14 Dose: Not Given Documented by: Insulin Human Lispro (Humalog Kwikpen (Bkc)) 30 unit SC 0800,1200,1700 [facility] Last Admin: 07/17/19 11:26 Dose: 30 units Documented by: Insulin Human NPH (Humulin N ([facility])) 40 units SC QHS [facility] Last Admin: 07/16/19 22:03 Dose: 40 u Documented by: Linezolid (Zyvox) 600 mg PO BID [facility] Last Admin: 07/17/19 09:08 Dose: 600 mg Documented by: Melatonin (Melatonin) 3 mg PO QHS PRN PRN PRN Reason: INSOMNIA Metronidazole (Flagyl) 500 mg PO TID [facility] Last Admin: 07/17/19 14:38 Dose: 500 mg Documented by: Nutritional Formula (Vu - [place] Flavor) [address] [facility] Last Admin: 07/17/19 16:08 Dose: Not Given Documented by: Ondansetron HCl (Zofran) 4 mg IV Q6H PRN PRN PRN Reason: NAUSEA Last Admin: 07/15/19 19:35 Dose: 4 mg Documented by: Oxycodone HCl (Oxyir) 10 mg PO Q4H PRN PRN PRN Reason: Pain Score 4-5/10 Last Admin: 07/17/19 14:38 Dose: 10 mg Documented by: Sodium Chloride () 10 - 40 ml IV UD PRN PRN Reason: SALINE FLUSH Last Admin: 07/16/19 20:03 Dose: 10 ml Documented by: Medical Necessity - Tobacco Use Smoking Status: Never smoker Assessment/Plan All Active Problems MRSA (methicillin resistant Staphylococcus aureus) (Acute) Diabetic foot infection (Acute) Acute renal failure, chronic kidney disease stage III. Baseline creatinine at the time of last admission was around 1.6. admission creatinine is 5.7. Only prescription that I see according to history is antibiotics. Urine analysis shows some proteinuria but no leukocytes. Urine eosinophils are pending but with negative leukocytes this is likely to be negative. Renal ultrasound looks acceptable. most likely this is ATN related to vancomycin. Reviewed ID notes. He is currently taken off vancomycin. cr is higher today. dw staff. urine output has remained low. catheter may not be draining well. flush today Hyperkalemia. better acidosis. likely contributing to hyperkalemia. better Hypertension. Current medication list reviewed. Blood pressure is ok.
--- NOTE | 2019-07-17 19:10 | PN.SURG_ITS ---
Subjective: Postop #2 Patient feels a little tired. - Physical Exam Vitals/I&O's: Vital Signs Temp Pulse Resp BP Pulse Ox 97.4 F L 72 18 131/42 H 94 07/17/19 18:08 07/17/19 18:08 07/17/19 18:08 07/17/19 18:08 07/17/19 18:08 Oxygen Flow Rate (L/min) 2 Oxygen Delivery Method Room Air Weight: 386 lb 7.525 oz Body Mass Index (BMI) 44.6 Finger Stick Blood Glucose 166 Intake and Output for Last 24 Hours 07/15/19 07/16/19 07/17/19 23:59 23:59 23:59 Intake Total 2770 / 3690 5130 / 5130 2697.5 / 2697.5 Output Total 2345 / 2705 1870 / 1870 650 / 650 Balance 425 / 985 3260 / 3260 2047.5 / 2047.5 General: Alert, Oriented x3 HEENT: PERRLA, EOMI Oral: Moist Mucosa Neck: Supple Abdomen: Soft, Non-Distended Skin: Ulcer/ Wound, Incision Neurological: Cranial nerves II-XII grossly intact Psych/Mental Status: Normal Affect, Appropriate Laboratory Results 07/15/19 04:58: Crossmatch See Detail 07/16/19 22:00: POC Glucose 261 H 07/17/19 04:55: WBC 8.8, RBC 2.67 L, Hgb 7.3 L, Hct 23.2 L, MCV 86.9, MCH 27.3, MCHC 31.5 L, RDW Std Deviation 52.2 H, RDW Coeff of Pool 17.0 H, Plt Count 188, MPV 11.0, Immature Gran % (Auto) 0.500, Neut % (Auto) 71.4 H, Lymph % (Auto) 16.4 L, [place] % (Auto) 10.1 H, Eos % (Auto) 1.4, Baso % (Auto) 0.2, Absolute Neuts (auto) 6.3, Absolute Lymphs (auto) 1.44, Nucleated RBC % 0 07/17/19 04:55: Sodium 135 L, Potassium 4.7, Chloride 107, Carbon Dioxide 21.0, Anion Gap 7, BUN 85 H, Creatinine 4.20 H, Estim Creat Clear Calc 22.97, Est GFR (MDRD) Af Amer 19 L, Est GFR (MDRD) Non-Af 15 L, BUN/Creatinine Ratio 20.2 H, Glucose 254 H, Calcium 7.5 L 07/17/19 06:22: POC Glucose 243 H 07/17/19 10:35: Hgb 6.8 L 07/17/19 11:21: POC Glucose 240 H 07/17/19 16:13: POC Glucose 135 H Current Medications Amlodipine Besylate (Norvasc) 10 mg PO DAILY [facility] Last Admin: 07/17/19 09:07 Dose: 10 mg Documented by: Carvedilol (Coreg) 3.125 mg PO BID [facility] Last Admin: 07/17/19 09:08 Dose: 3.125 mg Documented by: Dextrose (D50w Syringe) 0 gm IV X1 PRN; Protocol PRN Reason: Hypoglycemia Diazepam (Valium) 5 mg PO 4X/DAY PRN PRN PRN Reason: SPASMS Glucagon () 1 mg IM .X1 PRN PRN Reason: Hypoglycemia Guaifenesin (Mucinex) 1,200 mg PO BID [facility] Last Admin: 07/17/19 16:08 Dose: 1,200 mg Documented by: Heparin Sodium (Porcine) (Heparin Na) 5,000 unit SC Q8 [facility] Last Admin: 07/17/19 06:19 Dose: 5,000 unit Documented by: Hydralazine HCl (Apresoline) 50 mg PO BID [facility] Last Admin: 07/17/19 09:08 Dose: 50 mg Documented by: Hydromorphone HCl (Dilaudid Inj) 1 mg IV Q3H PRN PRN PRN Reason: Pain Score 6-10/10 Last Admin: 07/17/19 09:13 Dose: 1 mg Documented by: Sodium Chloride () 250 mls @ 15 mls/hr IV .[id number] PRN PRN Reason: Saline Flush Cefepime HCl 1 gm/ Sodium (Chloride) 50 mls @ 100 mls/hr IV Q24H [facility] Last Infusion: 07/16/19 22:54 Dose: Infused Documented by: Sodium Bicarbonate 150 meq/ (Dextrose) 1,150 mls @ 75 mls/hr IV .[id number] [facility] Last Infusion: 07/17/19 14:30 Dose: 0 mls/hr Documented by: Insulin Human Lispro (Humalog Kwikpen (Bkc)) 0 unit SC ACHS [facility]; Protocol Last Admin: 07/17/19 16:14 Dose: Not Given Documented by: Insulin Human Lispro (Humalog Kwikpen (Bk)) 30 unit SC 0800,1200,1700 [facility] Last Admin: 07/17/19 17:08 Dose: 30 units Documented by: Insulin Human NPH (Humulin N ([facility])) 40 units SC QHS [facility] Last Admin: 07/16/19 22:03 Dose: 40 u Documented by: Linezolid (Zyvox) 600 mg PO BID [facility] Last Admin: 07/17/19 09:08 Dose: 600 mg Documented by: Melatonin (Melatonin) 3 mg PO QHS PRN PRN PRN Reason: INSOMNIA Metronidazole (Flagyl) 500 mg PO TID [facility] Last Admin: 07/17/19 14:38 Dose: 500 mg Documented by: [facility]al [facility] [place] [facility] Last Admin: 07/17/19 16:08 Dose: Not Given Documented by: Ondansetron HCl (Zofran) 4 mg IV Q6H PRN PRN PRN Reason: NAUSEA Last Admin: 07/15/19 19:35 Dose: 4 mg Documented by: Oxycodone HCl (Oxyir) 10 mg PO Q4H PRN PRN PRN Reason: Pain Score 4-5/10 Last Admin: 07/17/19 14:38 Dose: 10 mg Documented by: Sodium Chloride () 10 - 40 ml IV UD PRN PRN Reason: SALINE FLUSH Last Admin: 07/16/19 20:03 Dose: 10 ml Documented by: Medical Necessity - Tobacco Use Smoking Status: Never smoker Assessment/Plan All Active Problems MRSA (methicillin resistant Staphylococcus aureus) (Acute) Diabetic foot infection (Acute) 1. Nonhealing infected diabetic ulcers left foot. 2. Osteomyelitis. 3. Acute kidney injury from recent medication (Vancomycin). 4. s/p TMA left foot. 5. Lymphedema lower extremities. 6. Venous insufficiency lower extremities. 7. Obesity. 8. MRSA. 9. Anemia of chronic disease, acute on chronic. Incisions are dry and intact. Central stump wound is stable. No active bleeding. Redressed with saline gauze. Will have VAC applied on Thursday. Continue Cefepime and Flagyl. The Vancomycin is on hold because of very high level of 40. These antibiotics are treating recent cultures from 06/29/19 which showed E. coli, Pseudomonas aeroginosa, MRSA, Corynebacterium striatum, Streptococcus Group A, and Anaerobic cocci. His initial Creatinine upon admission was 5.81. It decreased to 3.88. Today it increased to 4.20. Hgb today was 7.3 which is down from 8.7. Repeat was 6.8. He is getting PRBC today. He has anemia of chronic disease, acute on chronic. He had operative blood loss of 150 ml. His wound is stable with no clinical evidence of hematoma. Left BKA stump is soft with mild swelling. Most of the decrease is attributable to IV dilution. His I's/O's are positive about 5.5 liters. Will repeat Hgb tomorrow. Anticipate increased metabolic demands from the infection. Prealbumin is 13.0. Encourage nutritional supplementation with protein to help the healing process. He would benefit from a short stay at an ECF or a Rehab Unit before going home. After discharge, [facility].
[2019-07-17] MEDS: 0.9% Saline Lock 10 ML Syringe IV (22:15)
[2019-07-17] MEDS: Insulin NPH Human 100 UNITS/ML PEN 40 UNITS SC (22:24)
[2019-07-17 22:30] LABS: Bedside Glucose 125 mg/dL (70-110)
[2019-07-18] VITALS (7 sets, daily range): BP systolic 126–155; BP diastolic 49–62; PULSE 67–74; RESP 16–18; TEMP 36.4–36.9; O2SAT 92–95
[2019-07-18] MEDS: metroNIDAZOLE 500 MG Tablet PO ×3 (06:27→21:54)
[2019-07-18] MEDS: oxyCODONE 5 MG Tablet 10 MG PO ×3 (06:32→22:11)
[2019-07-18 06:46] LABS: Absolute Neutrophil Count 4.9 X10^3/uL (2.0-7.7); Basophil# 0.02 X10^3/uL; Basophil% 0.3 % (0-1); Eosinophil# 0.15 X10^3/uL; Eosinophils% 1.9 % (0-5); Hematocrit 25.8 % (40-54); Hemoglobin 8.1 g/dL (13.0-16.5); Lymphocyte % 20.8 % (19-41); Mean Corp Hgb Conc 31.4 g/dL (32-36); Mean Corpuscular Hgb 27.5 pg (27.0-32.0); Mean Corpuscular Volume 87.5 fL (80-94); Mean Platelet Vol. 10.5 fl (6.2-12.0); Monocyte# 0.96 X10^3/uL; Monocyte% 12.5 % (0-10); NRBC Flagged by Analyzer 0 % (0-5); Neutrophil # 4.93 X10^3/uL (2.7-7.7); Neutrophil % 63.9 % (47-70); Platelet Count 161 K/mm3 (150-450); RBC Distribution Width CV 17.2 % (11.6-14.6); RBC Distribution Width SD 52.6 fl (35.1-43.9); Red Blood Count 2.95 M/mm3 (4.6-6.2); White Blood Count 7.7 K/mm3 (4.4-11.0)
[2019-07-18 06:50] LABS: Bedside Glucose 167 mg/dL (70-110)
[2019-07-18 07:03] LABS: Anion Gap 7 (5-15); BUN 93 mg/dL (7-18); BUN/Creat Ratio 20.3 RATIO (10-20); Calcium,Total 7.4 mg/dL (8.5-10.1); Chloride 106 mmol/L (98-107); Creatinine, Serum 4.58 mg/dL (0.70-1.30); EST Glomerular Filtration Rate 14 mL/min (>60); Est Glom Filt Rate - Afr Amer 17 mL/min (>60); Estimated Creatinine Clearance 21.07 ml/min; Glucose 177 mg/dL (74-106); Potassium 4.4 mmol/L (3.5-5.1); Sodium Level 135 mmol/L (136-145)
--- NOTE | 2019-07-18 09:05 | NURSING ---
wound photo: left BKA site
--- NOTE | 2019-07-18 09:05 | NURSING ---
wound photo: right heel
[2019-07-18] MEDS: amLODIPine 10 MG Tablet PO (09:45)
[2019-07-18] MEDS: Carvedilol 3.125 MG TABLET PO ×2 (09:45→21:53)
[2019-07-18] MEDS: guaiFENesin 1,200 MG Tablet 1200 MG PO ×2 (09:46→21:54)
[2019-07-18] MEDS: hydrALAZINE 50 MG Tablet PO ×2 (09:46→21:54)
[2019-07-18] MEDS: Linezolid 600 MG Tablet PO ×2 (09:47→21:54)
--- NOTE | 2019-07-18 11:21 | CASEMGMT ---
Social Work Note SW updated that pt is agreeable to TCU at discharge. SW met with pt and introduced self and role at [facility]. Pt is alert and orientated x3. Pt confirms that he is agreeable to TCU. SW explained that this worker will make referral to TCU. Pt states understanding. COLLEEN placed a call to [place] in TCU, provided referral. [place] states she will review referral. Plan: TCU pending acceptance Emperatriz Aldana [employer] BLOCK[employer] OPERATOR, [employer] SUPERVISOR
[2019-07-18] MEDS: Insulin Lispro 100 UNIT/ML INSULN.PEN SC ×2 (11:24→22:02)
[2019-07-18 11:45] LABS: Bedside Glucose 212 mg/dL (70-110)
[2019-07-18] MEDS: 0.9% Normal Saline 1,000 ML 125 ML IV ×2 (15:02→23:08)
--- NOTE | 2019-07-18 15:12 | PCM.PN.HOSP ---
Subjective: Patient seen and examined. He had an uneventful night and had no complaints. Review of systems otherwise negative. Vitals/I&O's: Vital Signs Temp Pulse Resp BP Pulse Ox 97.8 F 72 16 155/62 H 94 07/18/19 14:39 07/18/19 14:39 07/18/19 14:39 07/18/19 14:39 07/18/19 14:39 Oxygen Flow Rate (L/min) 2 Oxygen Delivery Method Room Air Weight: 386 lb 7.525 oz Body Mass Index (BMI) 44.6 Finger Stick Blood Glucose 166 Intake and Output for Last 24 Hours 07/16/19 07/17/19 07/18/19 23:59 23:59 23:59 Intake Total 5130 / 5130 3197.5 / 3597.5 / Output Total 1870 / 1870 660 / 905 885 / 885 Balance 3260 / 3260 2537.5 / 2692.5 1123.75 / 1123.75 General: Alert, Oriented x3, Cooperative, No apparent distress, - - Morbidly obese. HEENT: Atraumatic, PERRLA, EOMI, Normocephalic Oral: Moist Mucosa Neck: Supple, No JVD, Negative Carotid Bruits Lungs: Clear to auscultation, Normal air movement, No rhonchi, No wheeze, No rales Cardiovascular: Regular rate, Regular Rhythm, Normal S1, Normal S2, No murmurs Abdomen: Bowel Sounds Present, Soft, Non Tender, Non-Distended, No Hepato-splenomegaly Extremities: - - left BKA stump in bandage; drain in place. Skin: No rashes, No breakdown Musculoskeletal: No Tenderness to Palpation of Joints or Extremities Lymphatic: No Cervical, Supraclavicular, or Inguinal Adenopathy Neurological: Cranial nerves II-XII grossly intact, Neuro grossly intact, Motor Exam 5/5 strength throughout Psych/Mental Status: Normal Affect, Appropriate, Alert and oriented to time, place, person, mood and affect Laboratory Results 07/15/19 04:58: Crossmatch See Detail 07/17/19 16:13: POC Glucose 135 H 07/17/19 22:21: POC Glucose 125 H 07/18/19 06:06: WBC 7.7, RBC 2.95 L, Hgb 8.1 L, Hct 25.8 L, MCV 87.5, MCH 27.5, MCHC 31.4 L, RDW Std Deviation 52.6 H, RDW Coeff of Pool 17.2 H, Plt Count 161, MPV 10.5, Immature Gran % (Auto) 0.600, Neut % (Auto) 63.9, Lymph % (Auto) 20.8, Blair % (Auto) 12.5 H, Eos % (Auto) 1.9, Baso % (Auto) 0.3, Absolute Neuts (auto) 4.9, Absolute Lymphs (auto) 1.60, Nucleated RBC % 0 07/18/19 06:06: Sodium 135 L, Potassium 4.4, Chloride 106, Carbon Dioxide 22.0, Anion Gap 7, BUN 93 H, Creatinine 4.58 H, Estim Creat Clear Calc 21.07, Est GFR (MDRD) Af Amer 17 L, Est GFR (MDRD) Non-Af 14 L, BUN/Creatinine Ratio 20.3 H, Glucose 177 H, Calcium 7.4 L 07/18/19 06:24: POC Glucose 167 H 07/18/19 11:16: POC Glucose 212 H Current Medications Amlodipine Besylate (Norvasc) 10 mg PO DAILY [facility] Last Admin: 07/18/19 09:45 Dose: 10 mg Documented by: Carvedilol (Coreg) 3.125 mg PO BID [facility] Last Admin: 07/18/19 09:45 Dose: 3.125 mg Documented by: Dextrose (D50w Syringe) 0 gm IV X1 PRN; Protocol PRN Reason: Hypoglycemia Diazepam (Valium) 5 mg PO 4X/DAY PRN PRN PRN Reason: SPASMS Glucagon () 1 mg IM .X1 PRN PRN Reason: Hypoglycemia Guaifenesin (Mucinex) 1,200 mg PO BID [facility] Last Admin: 07/18/19 09:46 Dose: 1,200 mg Documented by: Heparin Sodium (Porcine) (Heparin Na) 5,000 unit SC Q8 [facility] Last Admin: 07/17/19 06:19 Dose: 5,000 unit Documented by: Hydralazine HCl (Apresoline) 50 mg PO BID [facility] Last Admin: 07/18/19 09:46 Dose: 50 mg Documented by: Hydromorphone HCl (Dilaudid Inj) 1 mg IV Q3H PRN PRN PRN Reason: Pain Score 6-10/10 Last Admin: 07/17/19 22:14 Dose: 1 mg Documented by: Sodium Chloride () 250 mls @ 15 mls/hr IV .[id number] PRN PRN Reason: Saline Flush Cefepime HCl 1 gm/ Sodium (Chloride) 50 mls @ 100 mls/hr IV Q24H [facility] Last Infusion: 07/18/19 08:29 Dose: Infused Documented by: Sodium Chloride () 1,000 mls @ 125 mls/hr IV .Q8H [facility] Last Admin: 07/18/19 15:02 Dose: 125 mls/hr Documented by: Insulin Human Lispro (Humalog Kwikpen (Bkc)) 0 unit SC ACHS [facility]; Protocol Last Admin: 07/18/19 11:24 Dose: 4 u Documented by: Insulin Human Lispro (Humalog Kwikpen (Bkc)) 30 unit SC 0800,1200,1700 [facility] Last Admin: 07/18/19 14:46 Dose: Not Given Documented by: Insulin Human NPH (Humulin N (Bkc)) 40 units SC QHS [facility] Last Admin: 07/17/19 22:24 Dose: 40 u Documented by: Linezolid (Zyvox) 600 mg PO BID [facility] Last Admin: 07/18/19 09:47 Dose: 600 mg Documented by: Melatonin (Melatonin) 3 mg PO QHS PRN PRN PRN Reason: INSOMNIA Metronidazole (Flagyl) 500 mg PO TID [facility] Last Admin: 07/18/19 15:06 Dose: 500 mg Documented by: Mupirocin (Bactroban) 1 applic TOPICAL QODAY [facility]; Protocol Nutritional Formula (Vu - [place] Flavor) 1 packet PO BIDCM [facility] Last Admin: 07/18/19 09:45 Dose: 1 packet Documented by: Ondansetron HCl (Zofran) 4 mg IV Q6H PRN PRN PRN Reason: NAUSEA Last Admin: 07/15/19 19:35 Dose: 4 mg Documented by: Oxycodone HCl (Oxyir) 10 mg PO Q4H PRN PRN PRN Reason: Pain Score 4-5/10 Last Admin: 07/18/19 11:27 Dose: 10 mg Documented by: Sodium Chloride () 10 - 40 ml IV UD PRN PRN Reason: SALINE FLUSH Last Admin: 07/17/19 22:15 Dose: 10 ml Documented by: STROKE Vital Signs/Narrative: Vital Signs Temp Pulse Resp BP Pulse Ox 07/18/19 14:39 97.8 F 72 16 155/62 H 94 07/18/19 11:21 98 F 74 16 153/51 H 95 Medical Necessity - Tobacco Use Smoking Status: Never smoker Assessment/Plan All Active Problems MRSA (methicillin resistant Staphylococcus aureus) (Acute) Diabetic foot infection (Acute) 1. JOANNA on CKD 3 due to ATN from vancomycin use. nephrology on board. Cr has trended up to 4.58 today being hydrated with IVF CR does not seem to be improving, spite patient improving clinically. I did speak to the chemistry lab about the incongruency between patient's clinical improvement and lack of improvement in creatinine. Lab did rerun the blood sample and said that the repeat blood sample was still around the same number. Continue gentle hydration with IV fluid. 2. 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 Status post left BKA. Today's postop day 3. drain in place in stump. Plastic surgery on board. PT OT on board. on IV cefepime and PO linezolid 3. 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 A1c was 8.2 on 06/29/2019. On NPH insulin 40 units nightly and insulin sliding scale. Accu-Cheks AC at bedtime. 4. Non-anion gap metabolic acidosis: resolved. 5. Benign essential hypertension: On amlodipine and carvedilol. lisinopril on hold o/a of JOANNA 6. Anemia Hemoglobin is 8.1 today. He status post transfusion of 1 unit of packed red blood cell. 7. Morbid obesity: BMI is 44. This complicates acute care and management, expected recovery and prognosis. DVT prophylaxis: will resume heparin today as Hb is up to 8.1 Disposition: for DC to TCU once medically stable Inpatient E&M: [id number] Subs Hosp L2
[2019-07-18] MEDS: HYDROmorphone 1 MG/ML Syringe IV (15:13)
--- NOTE | 2019-07-18 15:33 | NURSING ---
800cc soap gerri edema given per dr jerez
[2019-07-18] MEDS: Ondansetron 4 MG/2 ML Vial IV ×2 (17:05→23:08)
--- NOTE | 2019-07-18 17:39 | PN.RENAL_ITS ---
Subjective: no new complaints - Physical Exam Vitals/I&O's: Vital Signs Temp Pulse Resp BP Pulse Ox 97.8 F 72 16 155/62 H 94 07/18/19 14:39 07/18/19 14:39 07/18/19 14:39 07/18/19 14:39 07/18/19 14:39 Oxygen Flow Rate (L/min) 2 Oxygen Delivery Method Room Air Weight: 175.3 kg Body Mass Index (BMI) 44.6 Finger Stick Blood Glucose 166 Intake and Output for Last 24 Hours 07/16/19 07/17/19 07/18/19 23:59 23:59 23:59 Intake Total 5130 / 5130 3197.5 / 3597.5 / Output Total 1870 / 1870 660 / 905 885 / 885 Balance 3260 / 3260 2537.5 / 2692.5 1123.75 / 1123.75 General: Alert, Oriented x3, Cooperative HEENT: Atraumatic, PERRLA, EOMI, Normocephalic Neck: Supple, No JVD, Negative Carotid Bruits Lungs: Clear to auscultation, Normal air movement Cardiovascular: Regular rate, No murmurs Abdomen: Bowel Sounds Present, Soft, Non Tender Extremities: No edema, Capillary Refill Less than 3 Seconds Skin: No rashes, No breakdown Musculoskeletal: No Tenderness to Palpation of Joints or Extremities Neurological: Cranial nerves II-XII grossly intact Psych/Mental Status: Normal Affect, Appropriate Laboratory Results 07/15/19 04:58: Crossmatch See Detail 07/17/19 22:21: POC Glucose 125 H 07/18/19 06:06: WBC 7.7, RBC 2.95 L, Hgb 8.1 L, Hct 25.8 L, MCV 87.5, MCH 27.5, MCHC 31.4 L, RDW Std Deviation 52.6 H, RDW Coeff of Pool 17.2 H, Plt Count 161, MPV 10.5, Immature Gran % (Auto) 0.600, Neut % (Auto) 63.9, Lymph % (Auto) 20.8, [place] % (Auto) 12.5 H, Eos % (Auto) 1.9, Baso % (Auto) 0.3, Absolute Neuts (auto) 4.9, Absolute Lymphs (auto) 1.60, Nucleated RBC % 0 07/18/19 06:06: Sodium 135 L, Potassium 4.4, Chloride 106, Carbon Dioxide 22.0, Anion Gap 7, BUN 93 H, Creatinine 4.58 H, Estim Creat Clear Calc 21.07, Est GFR (MDRD) Af Amer 17 L, Est GFR (MDRD) Non-Af 14 L, BUN/Creatinine Ratio 20.3 H, Glucose 177 H, Calcium 7.4 L 07/18/19 06:24: POC Glucose 167 H 07/18/19 11:16: POC Glucose 212 H Current Medications Amlodipine Besylate (Norvasc) 10 mg PO DAILY [facility] Last Admin: 07/18/19 09:45 Dose: 10 mg Documented by: Bisacodyl (Dulcolax) 5 mg PO DAILY [facility] Carvedilol (Coreg) 3.125 mg PO BID [facility] Last Admin: 07/18/19 09:45 Dose: 3.125 mg Documented by: Dextrose (D50w Syringe) 0 gm IV X1 PRN; Protocol PRN Reason: Hypoglycemia Diazepam (Valium) 5 mg PO 4X/DAY PRN PRN PRN Reason: SPASMS Glucagon () 1 mg IM .X1 PRN PRN Reason: Hypoglycemia Guaifenesin (Mucinex) 1,200 mg PO BID [facility] Last Admin: 07/18/19 09:46 Dose: 1,200 mg Documented by: Heparin Sodium (Porcine) (Heparin Na) 5,000 unit SC Q8 [facility] Last Admin: 07/17/19 06:19 Dose: 5,000 unit Documented by: Hydralazine HCl (Apresoline) 50 mg PO BID [facility] Last Admin: 07/18/19 09:46 Dose: 50 mg Documented by: Hydromorphone HCl (Dilaudid Inj) 1 mg IV Q3H PRN PRN PRN Reason: Pain Score 6-10/10 Last Admin: 07/18/19 15:13 Dose: 1 mg Documented by: Sodium Chloride () 250 mls @ 15 mls/hr IV .[id number] PRN PRN Reason: Saline Flush Cefepime HCl 1 gm/ Sodium (Chloride) 50 mls @ 100 mls/hr IV Q24H [facility] Last Infusion: 07/18/19 08:29 Dose: Infused Documented by: Sodium Chloride () 1,000 mls @ 125 mls/hr IV .Q8H [facility] Last Admin: 07/18/19 15:02 Dose: 125 mls/hr Documented by: Insulin Human Lispro (Humalog Kwikpen (Bk)) 0 unit SC ACHS [facility]; Protocol Last Admin: 07/18/19 11:24 Dose: 4 u Documented by: Insulin Human Lispro (Humalog Kwikpen (Bk)) 30 unit SC 0800,1200,1700 [facility] Last Admin: 07/18/19 14:46 Dose: Not Given Documented by: Insulin Human NPH (Humulin N ([facility])) 40 units SC QHS [facility] Last Admin: 07/17/19 22:24 Dose: 40 u Documented by: Linezolid (Zyvox) 600 mg PO BID [facility] Last Admin: 07/18/19 09:47 Dose: 600 mg Documented by: Melatonin (Melatonin) 3 mg PO QHS PRN PRN PRN Reason: INSOMNIA Metronidazole (Flagyl) 500 mg PO TID [facility] Last Admin: 07/18/19 15:06 Dose: 500 mg Documented by: Mupirocin (Bactroban) 1 applic TOPICAL QODAY [facility]; Protocol Nutritional Formula ([facility] - [place] [facility]) [facility] Last Admin: 07/18/19 09:45 Dose: 1 packet Documented by: Ondansetron HCl (Zofran) 4 mg IV Q6H PRN PRN PRN Reason: NAUSEA Last Admin: 07/18/19 17:05 Dose: 4 mg Documented by: Oxycodone HCl (Oxyir) 10 mg PO Q4H PRN PRN PRN Reason: Pain Score 4-5/10 Last Admin: 07/18/19 11:27 Dose: 10 mg Documented by: Senna (Senokot) 2 tablet PO BID [facility] Sodium Chloride () 10 - 40 ml IV UD PRN PRN Reason: SALINE FLUSH Last Admin: 07/17/19 22:15 Dose: 10 ml Documented by: Medical Necessity - Tobacco Use Smoking Status: Never smoker Assessment/Plan All Active Problems MRSA (methicillin resistant Staphylococcus aureus) (Acute) Diabetic foot infection (Acute) Acute renal failure, chronic kidney disease stage III. Baseline creatinine at the time of last admission was around 1.6. admission creatinine is 5.7. Only prescription that I see according to history is antibiotics. Urine analysis shows some proteinuria but no leukocytes. Urine eosinophils are pending but with negative leukocytes this is likely to be negative. Renal ultrasound looks acceptable. most likely this is ATN related to vancomycin. Reviewed ID notes. He is currently taken off vancomycin. cr is higher today. dw staff. urine output has remained low. catheter has been flushed. bladder scan is negative. will increase fluids for now Hyperkalemia. better acidosis. likely contributing to hyperkalemia. better Hypertension. Current medication list reviewed. Blood pressure is ok. dw Dr Rolle
[2019-07-18] MEDS: Bisacodyl 5 MG Tablet PO (18:00)
[2019-07-18] MEDS: Senna Tablet 2 TABLET PO (18:00)
--- NOTE | 2019-07-18 21:17 | PCM.PN.ID ---
Subjective: Feeling ok, pain controlled, no fever, no n/v/d. - Physical Exam Vitals/I&O's: Vital Signs Temp Pulse Resp BP Pulse Ox 97.8 F 72 16 155/62 H 94 07/18/19 14:39 07/18/19 14:39 07/18/19 14:39 07/18/19 14:39 07/18/19 14:39 Oxygen Flow Rate (L/min) 2 Oxygen Delivery Method Room Air Weight: 175.3 kg Body Mass Index (BMI) 44.6 Finger Stick Blood Glucose 166 Intake and Output for Last 24 Hours 07/16/19 07/17/19 07/18/19 23:59 23:59 23:59 Intake Total 5130 / 5130 3197.5 / 3597.5 2208.75 / 2208.75 Output Total 1870 / 1870 660 / 905 1435 / 1435 Balance 3260 / 3260 2537.5 / 2692.5 773.75 / 773.75 General: Alert, Cooperative, No apparent distress Lungs: Clear to auscultation, Normal air movement Cardiovascular: Regular rate, Regular Rhythm Abdomen: Soft, Non Tender, Non-Distended Skin: Ulcer/ Wound Laboratory Results 07/17/19 22:21: POC Glucose 125 H 07/18/19 06:06: WBC 7.7, RBC 2.95 L, Hgb 8.1 L, Hct 25.8 L, MCV 87.5, MCH 27.5, MCHC 31.4 L, RDW Std Deviation 52.6 H, RDW Coeff of Pool 17.2 H, Plt Count 161, MPV 10.5, Immature Gran % (Auto) 0.600, Neut % (Auto) 63.9, Lymph % (Auto) 20.8, [place] % (Auto) 12.5 H, Eos % (Auto) 1.9, Baso % (Auto) 0.3, Absolute Neuts (auto) 4.9, Absolute Lymphs (auto) 1.60, Nucleated RBC % 0 07/18/19 06:06: Sodium 135 L, Potassium 4.4, Chloride 106, Carbon Dioxide 22.0, Anion Gap 7, BUN 93 H, Creatinine 4.58 H, Estim Creat Clear Calc 21.07, Est GFR (MDRD) Af Amer 17 L, Est GFR (MDRD) Non-Af 14 L, BUN/Creatinine Ratio 20.3 H, Glucose 177 H, Calcium 7.4 L 07/18/19 06:24: POC Glucose 167 H 07/18/19 11:16: POC Glucose 212 H Current Medications Amlodipine Besylate (Norvasc) 10 mg PO DAILY [facility] Last Admin: 07/18/19 09:45 Dose: 10 mg Documented by: Bisacodyl (Dulcolax) 5 mg PO DAILY [facility] Last Admin: 07/18/19 18:00 Dose: 5 mg Documented by: Carvedilol (Coreg) 3.125 mg PO BID [facility] Last Admin: 07/18/19 09:45 Dose: 3.125 mg Documented by: Dextrose (D50w Syringe) 0 gm IV X1 PRN; Protocol PRN Reason: Hypoglycemia Diazepam (Valium) 5 mg PO 4X/DAY PRN PRN PRN Reason: SPASMS Glucagon () 1 mg IM .X1 PRN PRN Reason: Hypoglycemia Guaifenesin (Mucinex) 1,200 mg PO BID [facility] Last Admin: 07/18/19 09:46 Dose: 1,200 mg Documented by: Heparin Sodium (Porcine) (Heparin Na) 5,000 unit SC Q8 [facility] Last Admin: 07/17/19 06:19 Dose: 5,000 unit Documented by: Hydralazine HCl (Apresoline) 50 mg PO BID [facility] Last Admin: 07/18/19 09:46 Dose: 50 mg Documented by: Hydromorphone HCl (Dilaudid Inj) 1 mg IV Q3H PRN PRN PRN Reason: Pain Score 6-10/10 Last Admin: 07/18/19 15:13 Dose: 1 mg Documented by: Sodium Chloride () 250 mls @ 15 mls/hr IV .[id number] PRN PRN Reason: Saline Flush Cefepime HCl 1 gm/ Sodium (Chloride) 50 mls @ 100 mls/hr IV Q24H [facility] Last Infusion: 07/18/19 08:29 Dose: Infused Documented by: Sodium Chloride () 1,000 mls @ 125 mls/hr IV .Q8H [facility] Last Admin: 07/18/19 15:02 Dose: 125 mls/hr Documented by: Insulin Human Lispro (Humalog Kwikpen (Bkc)) 0 unit SC ACHS [facility]; Protocol Last Admin: 07/18/19 17:41 Dose: Not Given Documented by: Insulin Human Lispro (Humalog Kwikpen ([facility])) 30 unit SC 0800,1200,1700 [facility] Last Admin: 07/18/19 17:41 Dose: Not Given Documented by: Insulin Human NPH (Humulin N ([facility])) 40 units SC QHS [facility] Last Admin: 07/17/19 22:24 Dose: 40 u Documented by: Linezolid (Zyvox) 600 mg PO BID [facility] Last Admin: 07/18/19 09:47 Dose: 600 mg Documented by: Melatonin (Melatonin) 3 mg PO QHS PRN PRN PRN Reason: INSOMNIA Metronidazole (Flagyl) 500 mg PO TID [facility] Last Admin: 07/18/19 15:06 Dose: 500 mg Documented by: Mupirocin (Bactroban) 1 applic TOPICAL QODAY [facility]; Protocol Nutritional Formula ([facility] - [place] Flavor) [facility] Last Admin: 07/18/19 17:41 Dose: Not Given Documented by: Ondansetron HCl (Zofran) 4 mg IV Q6H PRN PRN PRN Reason: NAUSEA Last Admin: 07/18/19 17:05 Dose: 4 mg Documented by: Oxycodone HCl (Oxyir) 10 mg PO Q4H PRN PRN PRN Reason: Pain Score 4-5/10 Last Admin: 07/18/19 11:27 Dose: 10 mg Documented by: Senna (Senokot) 2 tablet PO BID [facility] Last Admin: 07/18/19 18:00 Dose: 2 tablet Documented by: Sodium Chloride () 10 - 40 ml IV UD PRN PRN Reason: SALINE FLUSH Last Admin: 07/17/19 22:15 Dose: 10 ml Documented by: Medical Necessity - Tobacco Use Smoking Status: Never smoker Route of nutrition/ use of supplements: [] Nutritional Intake: [] IV Site: [] Hernandez Catheter: [] - Assessment/Plan Antibiotics: [] Assessment/Plan: [] L foot osteo with new JOANNA - had been on outpt iv vanc and cefepime with po flagyl. Outpt vanc trough over 40 prior to admit. Now s/p BKA. On linezolid/cefepime, plan on stopping prior to transfer to TCU. Will follow
[2019-07-18 21:20] LABS: Bedside Glucose 178 mg/dL (70-110)
[2019-07-18] MEDS: Heparin Injection (Vial) 5,000 UNIT/ML VIAL 5000 UNIT SC (21:56)
[2019-07-18 22:21] LABS: Bedside Glucose 188 mg/dL (70-110)
--- NOTE | 2019-07-18 23:36 | PCM.PN.SRG ---
Subjective: Postop #3 Patient is resting comfortably. VAC applied. - Physical Exam Vitals/I&O's: Vital Signs Temp Pulse Resp BP Pulse Ox 98.5 F 69 16 143/61 H 92 07/18/19 20:30 07/18/19 21:54 07/18/19 20:30 07/18/19 20:30 07/18/19 20:30 Oxygen Flow Rate (L/min) 2 Oxygen Delivery Method Room Air Weight: 386 lb 7.525 oz Body Mass Index (BMI) 44.6 Finger Stick Blood Glucose 166 Intake and Output for Last 24 Hours 07/16/19 07/17/19 07/18/19 23:59 23:59 23:59 Intake Total 5130 / 5130 3197.5 / 3597.5 3258.75 / 3258.75 Output Total 1870 / 1870 660 / 905 1435 / 1435 Balance 3260 / 3260 2537.5 / 2692.5 1823.75 / 1823.75 Drainage 60 ml yesterday, 35 ml today. General: Alert, Oriented x3 HEENT: PERRLA, EOMI Oral: Moist Mucosa Neck: Supple Abdomen: Soft, Non-Distended Skin: Ulcer/ Wound - His central stump wound is stable. No active bleeding noted. VAC applied followed by compression marlo wrap., Incision - The stump incision dry and intact. No clinical evidence of hematoma. Neurological: Cranial nerves II-XII grossly intact Psych/Mental Status: Normal Affect, Appropriate Laboratory Results 07/18/19 06:06: WBC 7.7, RBC 2.95 L, Hgb 8.1 L, Hct 25.8 L, MCV 87.5, MCH 27.5, MCHC 31.4 L, RDW Std Deviation 52.6 H, RDW Coeff of Pool 17.2 H, Plt Count 161, MPV 10.5, Immature Gran % (Auto) 0.600, Neut % (Auto) 63.9, Lymph % (Auto) 20.8, [place] % (Auto) 12.5 H, Eos % (Auto) 1.9, Baso % (Auto) 0.3, Absolute Neuts (auto) 4.9, Absolute Lymphs (auto) 1.60, Nucleated RBC % 0 07/18/19 06:06: Sodium 135 L, Potassium 4.4, Chloride 106, Carbon Dioxide 22.0, Anion Gap 7, BUN 93 H, Creatinine 4.58 H, Estim Creat Clear Calc 21.07, Est GFR (MDRD) Af Amer 17 L, Est GFR (MDRD) Non-Af 14 L, BUN/Creatinine Ratio 20.3 H, Glucose 177 H, Calcium 7.4 L 07/18/19 06:24: POC Glucose 167 H 07/18/19 11:16: POC Glucose 212 H 07/18/19 15:05: POC Glucose 178 H 07/18/19 22:01: POC Glucose 188 H Current Medications Amlodipine Besylate (Norvasc) 10 mg PO DAILY [facility] Last Admin: 07/18/19 09:45 Dose: 10 mg Documented by: Bisacodyl (Dulcolax) 5 mg PO DAILY [facility] Last Admin: 07/18/19 18:00 Dose: 5 mg Documented by: Carvedilol (Coreg) 3.125 mg PO BID [facility] Last Admin: 07/18/19 21:53 Dose: 3.125 mg Documented by: Dextrose (D50w Syringe) 0 gm IV X1 PRN; Protocol PRN Reason: Hypoglycemia Diazepam (Valium) 5 mg PO 4X/DAY PRN PRN PRN Reason: SPASMS Glucagon () 1 mg IM .X1 PRN PRN Reason: Hypoglycemia Guaifenesin (Mucinex) 1,200 mg PO BID [facility] Last Admin: 07/18/19 21:54 Dose: 1,200 mg Documented by: Heparin Sodium (Porcine) (Heparin Na) 5,000 unit SC Q8 [facility] Last Admin: 07/18/19 21:56 Dose: 5,000 unit Documented by: Hydralazine HCl (Apresoline) 50 mg PO BID [facility] Last Admin: 07/18/19 21:54 Dose: 50 mg Documented by: Hydromorphone HCl (Dilaudid Inj) 1 mg IV Q3H PRN PRN PRN Reason: Pain Score 6-10/10 Last Admin: 07/18/19 15:13 Dose: 1 mg Documented by: Sodium Chloride () 250 mls @ 15 mls/hr IV .[id number] PRN PRN Reason: Saline Flush Cefepime HCl 1 gm/ Sodium (Chloride) 50 mls @ 100 mls/hr IV Q24H [facility] Last Infusion: 07/18/19 22:46 Dose: Infused Documented by: Sodium Chloride () 1,000 mls @ 125 mls/hr IV .Q8H [facility] Last Admin: 07/18/19 23:08 Dose: 125 mls/hr Documented by: Insulin Human Lispro (Humalog Kwikpen (Bkc)) 0 unit SC ACHS [facility]; Protocol Last Admin: 07/18/19 22:02 Dose: 2 u Documented by: Insulin Human Lispro (Humalog Kwikpen (Bkc)) 30 unit SC 0800,1200,1700 [facility] Last Admin: 07/18/19 17:41 Dose: Not Given Documented by: Insulin Human NPH (Humulin N ([facility])) 40 units SC QHS [facility] Last Admin: 07/18/19 22:02 Dose: Not Given Documented by: Linezolid (Zyvox) 600 mg PO BID [facility] Last Admin: 07/18/19 21:54 Dose: 600 mg Documented by: Melatonin (Melatonin) 3 mg PO QHS PRN PRN PRN Reason: INSOMNIA Metronidazole (Flagyl) 500 mg PO TID [facility] Last Admin: 07/18/19 21:54 Dose: 500 mg Documented by: Mupirocin (Bactroban) 1 applic TOPICAL QODAY [facility]; Protocol Nutritional Formula (Vu - [place] Flavor) 1 packet PO BIDCM [facility] Last Admin: 07/18/19 17:41 Dose: Not Given Documented by: Ondansetron HCl (Zofran) 4 mg IV Q6H PRN PRN PRN Reason: NAUSEA Last Admin: 07/18/19 23:08 Dose: 4 mg Documented by: Oxycodone HCl (Oxyir) 10 mg PO Q4H PRN PRN PRN Reason: Pain Score 4-5/10 Last Admin: 07/18/19 22:11 Dose: 10 mg Documented by: Senna (Senokot) 2 tablet PO BID [facility] Last Admin: 07/18/19 18:00 Dose: 2 tablet Documented by: Sodium Chloride () 10 - 40 ml IV UD PRN PRN Reason: SALINE FLUSH Last Admin: 07/17/19 22:15 Dose: 10 ml Documented by: Medical Necessity - Tobacco Use Smoking Status: Never smoker Assessment/Plan All Active Problems MRSA (methicillin resistant Staphylococcus aureus) (Acute) Diabetic foot infection (Acute) 1. Nonhealing infected diabetic ulcers left foot. 2. Osteomyelitis. 3. Acute kidney injury from recent medication (Vancomycin). 4. s/p TMA left foot. 5. Lymphedema lower extremities. 6. Venous insufficiency lower extremities. 7. Obesity. 8. MRSA. 9. Anemia of chronic disease, acute on chronic. Incisions are dry and intact. Central stump wound is stable. No active bleeding. VAC applied today followed by compression marlo wrap. Continue Cefepime and Flagyl. The Vancomycin is on hold because of very high level of 40. These antibiotics are treating recent cultures from 06/29/19 which showed E. coli, Pseudomonas aeroginosa, MRSA, Corynebacterium striatum, Streptococcus Group A, and Anaerobic cocci. His initial Creatinine upon admission was 5.81. Yesterday it was 4.20. Today it increased to 4.58. Hgb today was 8.1 up fro 6.8 after PRBC. which is down from 8.7. He has anemia of chronic disease, acute on chronic. He had operative blood loss of 150 ml. His wound is stable with no clinical evidence of hematoma. Left BKA stump is soft with mild swelling. Most of the decrease is attributable to IV dilution. His I's/O's are positive about 7 liters. Will repeat Hgb tomorrow. Anticipate increased metabolic demands from the infection. Prealbumin is 13.0. Encourage nutritional supplementation with protein to help the healing process. He would benefit from a short stay at an ECF or a Rehab Unit before going home. After discharge, [facility].
[2019-07-19] VITALS (8 sets, daily range): BP systolic 133–163; BP diastolic 56–68; PULSE 65–80; RESP 16–18; TEMP 36.6–37.1; O2SAT 92–93
[2019-07-19 06:53] LABS: Absolute Lymphocyte Count 1.23 X10^3/uL (0.83-4.51); Absolute Neutrophil Count 6.4 X10^3/uL (2.0-7.7); Basophil# 0.02 X10^3/uL; Basophil% 0.2 % (0-1); Eosinophil# 0.29 X10^3/uL; Eosinophils% 3.3 % (0-5); Hematocrit 28.8 % (40-54); Hemoglobin 8.8 g/dL (13.0-16.5); Lymphocyte # 1.23 X10^3/ul (4.0); Mean Corp Hgb Conc 30.6 g/dL (32-36); Mean Corpuscular Hgb 27.2 pg (27.0-32.0); Mean Corpuscular Volume 88.9 fL (80-94); Mean Platelet Vol. 10.8 fl (6.2-12.0); Monocyte# 0.84 X10^3/uL; Monocyte% 9.5 % (0-10); NRBC Flagged by Analyzer 0 % (0-5); Neutrophil % 72.7 % (47-70); Platelet Count 184 K/mm3 (150-450); RBC Distribution Width SD 54.8 fl (35.1-43.9); Red Blood Count 3.24 M/mm3 (4.6-6.2); White Blood Count 8.8 K/mm3 (4.4-11.0)
[2019-07-19 07:06] LABS: Anion Gap 9 (5-15); BUN 95 mg/dL (7-18); BUN/Creat Ratio 20.6 RATIO (10-20); Calcium,Total 7.9 mg/dL (8.5-10.1); Chloride 105 mmol/L (98-107); Creatinine, Serum 4.62 mg/dL (0.70-1.30); EST Glomerular Filtration Rate 14 mL/min (>60); Est Glom Filt Rate - Afr Amer 17 mL/min (>60); Estimated Creatinine Clearance 20.88 ml/min; Glucose 183 mg/dL (74-106); Potassium 4.8 mmol/L (3.5-5.1); Sodium Level 134 mmol/L (136-145)
[2019-07-19] MEDS: 0.9% Saline Lock 10 ML Syringe IV ×2 (07:29→09:43)
[2019-07-19] MEDS: 0.9% Normal Saline 1,000 ML 125 ML IV ×3 (07:29→23:02)
[2019-07-19 07:36] LABS: Bedside Glucose 175 mg/dL (70-110)
[2019-07-19] MEDS: Insulin Lispro 100 UNIT/ML INSULN.PEN 30 UNIT SC (09:34)
[2019-07-19] MEDS: Linezolid 600 MG Tablet PO ×2 (09:36→23:04)
[2019-07-19] MEDS: Senna Tablet 2 TABLET PO ×2 (09:36→23:03)
[2019-07-19] MEDS: hydrALAZINE 50 MG Tablet PO ×2 (09:36→23:03)
[2019-07-19] MEDS: amLODIPine 10 MG Tablet PO (09:37)
[2019-07-19] MEDS: Bisacodyl 5 MG Tablet PO (09:37)
[2019-07-19] MEDS: guaiFENesin 1,200 MG Tablet 1200 MG PO ×2 (09:37→23:02)
[2019-07-19] MEDS: Carvedilol 3.125 MG TABLET PO ×2 (09:37→23:04)
[2019-07-19] MEDS: Ondansetron 4 MG/2 ML Vial IV (09:43)
[2019-07-19] MEDS: oxyCODONE 5 MG Tablet 10 MG PO (09:57)
--- NOTE | 2019-07-19 10:35 | CASEMGMT ---
Addendum entered by Emperatriz Aldana 07/19/19 15:18: SW got confirmation from Charge Nurse that pt will get in house COVID testing tomorrow, get results tomorrow, and then if negative discharge to TCU tomorrow. Physician updated. Addendum entered by Emperatriz Aldana 07/19/19 13:15: COLLEEN spoke with Charge Nurse, in house testing is apparently not available yet. Waiting for incident command to give answer regarding in house testing for COVID. Original Note: Social Work Note Creatine is still trending upwards, pt may or may not be medically cleared for discharge today. COLLEEN received call from [place] in TCU stating it is now a policy for TCU that every new admit must have one negative COVID test before being able to admit to TCU. [place] states in house testing should be available today/tomorrow and it is being stated that results should be back within two hours. [place] states pt may be able to admit today without testing but she would need to check with administration. COLLEEN updated Charge Nurse. COLLEEN waiting to get final say from physician whether pt is medically cleared for discharge today or tomorrow. Plan: TCU once medically cleared, pt may need one negative COVID test before being admit to TCU. Emperatriz Aldana [employer], [employer]
[2019-07-19 11:31] LABS: Bedside Glucose 161 mg/dL (70-110)
[2019-07-19] MEDS: Insulin Lispro 100 UNIT/ML INSULN.PEN SC ×2 (12:50→16:39)
[2019-07-19] MEDS: metroNIDAZOLE 500 MG Tablet PO ×2 (12:51→23:02)
[2019-07-19] MEDS: Heparin Injection (Vial) 5,000 UNIT/ML VIAL 5000 UNIT SC (12:54)
--- NOTE | 2019-07-19 14:46 | PN_ITS ---
Subjective: Patient seen and examined. He has no complaints. Review of symptoms otherwise negative. Labs and vitals reviewed. Creatinine is trended up a bit to 4.62 today. Vitals/I&O's: Vital Signs Temp Pulse Resp BP Pulse Ox 97.9 F 74 18 147/56 H 93 07/19/19 14:26 07/19/19 14:26 07/19/19 14:26 07/19/19 14:26 07/19/19 14:26 Oxygen Flow Rate (L/min) 2 Oxygen Delivery Method Room Air Weight: 386 lb 7.525 oz Body Mass Index (BMI) 44.6 Finger Stick Blood Glucose 166 Intake and Output for Last 24 Hours 07/17/19 07/18/19 07/19/19 23:59 23:59 23:59 Intake Total 3197.5 / 3597.5 3258.75 / 3558.75 1600 / 1600 Output Total 660 / 905 1435 / 1785 1010 / 1010 Balance 2537.5 / 2692.5 1823.75 / 1773.75 590 / 590 General: Alert, Oriented x3, Cooperative, No apparent distress, - - Morbidly obese. HEENT: Atraumatic, PERRLA, EOMI, Normocephalic Oral: Moist Mucosa Neck: Supple, No JVD, Negative Carotid Bruits Lungs: Clear to auscultation, Normal air movement, No rhonchi, No wheeze, No rales Cardiovascular: Regular rate, Regular Rhythm, Normal S1, Normal S2, No murmurs Abdomen: Bowel Sounds Present, Soft, Non Tender, Non-Distended, No Hepato- splenomegaly Extremities: - - left BKA stump in bandage; drain in place. Skin: No rashes, No breakdown Musculoskeletal: No Tenderness to Palpation of Joints or Extremities Lymphatic: No Cervical, Supraclavicular, or Inguinal Adenopathy Neurological: Cranial nerves II-XII grossly intact, Neuro grossly intact, Motor Exam 5/5 strength throughout Psych/Mental Status: Normal Affect, Appropriate, Alert and oriented to time, place, person, mood and affect Laboratory Results 07/18/19 15:05: POC Glucose 178 H 07/18/19 22:01: POC Glucose 188 H 07/19/19 06:26: WBC 8.8, RBC 3.24 L, Hgb 8.8 L, Hct 28.8 L, MCV 88.9, MCH 27.2, MCHC 30.6 L, RDW Std Deviation 54.8 H, RDW Coeff of Pool 17.0 H, Plt Count 184, MPV 10.8, Immature Gran % (Auto) 0.300, Neut % (Auto) 72.7 H, Lymph % (Auto) 14.0 L, [place] % (Auto) 9.5, Eos % (Auto) 3.3, Baso % (Auto) 0.2, Absolute Neuts (auto) 6.4, Absolute Lymphs (auto) 1.23, Nucleated RBC % 0 07/19/19 06:26: Sodium 134 L, Potassium 4.8, Chloride 105, Carbon Dioxide 20.0 L , Anion Gap 9, BUN 95 H, Creatinine 4.62 H, Estim Creat Clear Calc 20.88, Est GFR (MDRD) Af Amer 17 L, Est GFR (MDRD) Non-Af 14 L, BUN/Creatinine Ratio 20.6 H , Glucose 183 H, Calcium 7.9 L 07/19/19 07:28: POC Glucose 175 H 07/19/19 11:24: POC Glucose 161 H 07/19/19 12:19: COVID-19 (YAYA) Pending Current Medications Amlodipine Besylate (Norvasc) 10 mg PO DAILY [facility] Last Admin: 07/19/19 09:37 Dose: 10 mg Documented by: Bisacodyl (Dulcolax) 5 mg PO DAILY [facility] Last Admin: 07/19/19 09:37 Dose: 5 mg Documented by: Carvedilol (Coreg) 3.125 mg PO BID [facility] Last Admin: 07/19/19 09:37 Dose: 3.125 mg Documented by: Dextrose (D50w Syringe) 0 gm IV X1 PRN; Protocol PRN Reason: Hypoglycemia Diazepam (Valium) 5 mg PO 4X/DAY PRN PRN PRN Reason: SPASMS Glucagon () 1 mg IM .X1 PRN PRN Reason: Hypoglycemia Guaifenesin (Mucinex) 1,200 mg PO BID [facility] Last Admin: 07/19/19 09:37 Dose: 1,200 mg Documented by: Heparin Sodium (Porcine) (Heparin Na) 5,000 unit SC Q8 [facility] Last Admin: 07/19/19 12:54 Dose: 5,000 unit Documented by: Hydralazine HCl (Apresoline) 50 mg PO BID [facility] Last Admin: 07/19/19 09:36 Dose: 50 mg Documented by: Hydromorphone HCl (Dilaudid Inj) 1 mg IV Q3H PRN PRN PRN Reason: Pain Score 6-10/10 Last Admin: 07/18/19 15:13 Dose: 1 mg Documented by: Sodium Chloride () 250 mls @ 15 mls/hr IV .[id number] PRN PRN Reason: Saline Flush Cefepime HCl 1 gm/ Sodium (Chloride) 50 mls @ 100 mls/hr IV Q24H [facility] Last Infusion: 07/18/19 22:46 Dose: Infused Documented by: Sodium Chloride () 1,000 mls @ 125 mls/hr IV .Q8H [facility] Last Admin: 07/19/19 07:29 Dose: 125 mls/hr Documented by: Insulin Human Lispro (Humalog Kwikpen (Bkc)) 0 unit SC ACHS [facility]; Protocol Last Admin: 07/19/19 12:50 Dose: 2 u Documented by: Insulin Human Lispro (Humalog Kwikpen (Bkc)) 30 unit SC 0800,1200,1700 [facility] Last Admin: 07/19/19 12:48 Dose: Not Given Documented by: Insulin Human NPH (Humulin N (Bkc)) 40 units SC QHS [facility] Last Admin: 07/18/19 22:02 Dose: Not Given Documented by: Linezolid (Zyvox) 600 mg PO BID [facility] Last Admin: 07/19/19 09:36 Dose: 600 mg Documented by: Melatonin (Melatonin) 3 mg PO QHS PRN PRN PRN Reason: INSOMNIA Metronidazole (Flagyl) 500 mg PO TID [facility] Last Admin: 07/19/19 12:51 Dose: 500 mg Documented by: Mupirocin (Bactroban) 1 applic TOPICAL QODAY [facility]; Protocol Nutritional Formula ([facility] [place] [facility]) [facility] Last Admin: 07/19/19 09:33 Dose: Not Given Documented by: Ondansetron HCl (Zofran) 4 mg IV Q6H PRN PRN PRN Reason: NAUSEA Last Admin: 07/19/19 09:43 Dose: 4 mg Documented by: Oxycodone HCl (Oxyir) 10 mg PO Q4H PRN PRN PRN Reason: Pain Score 4-5/10 Last Admin: 07/19/19 09:57 Dose: 10 mg Documented by: Azucena (Senokot) 2 tablet PO BID [facility] Last Admin: 07/19/19 09:36 Dose: 2 tablet Documented by: Sodium Chloride () 10 - 40 ml IV UD PRN PRN Reason: SALINE FLUSH Last Admin: 07/19/19 09:43 Dose: 20 ml Documented by: STROKE Vital Signs/Narrative: Vital Signs Temp Pulse Resp BP Pulse Ox 07/19/19 14:26 97.9 F 74 18 147/56 H 93 07/19/19 14:20 80 Medical Necessity - Tobacco Use Smoking Status: Never smoker Assessment/Plan All Active Problems MRSA (methicillin resistant Staphylococcus aureus) (Acute) Diabetic foot infection (Acute) 1. JOANNA on CKD 3 * due to ATN from vancomycin use. * nephrology on board. Cr has trended up to 4.62 today * being hydrated with IVF * Continue gentle hydration with IV fluid. * 2. Chronic nonhealing left foot neuropathic ulcer * Due to diabetes. Status post left BKA. Today's postop day 4. drain in place in stump. * Plastic surgery on board. PT OT on board. * on IV cefepime and PO linezolid * 3. 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 * A1c was 8.2 on 06/29/2019. * On NPH insulin 40 units nightly and insulin sliding scale. Accu-Cheks AC at bedtime. * 4. Benign essential hypertension: * On amlodipine and carvedilol. lisinopril on hold o/a of JOANNA 5. Anemia * Hemoglobin is 8.8 today. He status post transfusion of 1 unit of packed red blood cell. * 6. Morbid obesity: BMI is 44. This complicates acute care and management, expected recovery and prognosis. DVT prophylaxis: heparin Disposition: for DC to TCU once medically stable. COVID test being done because he needs a negative test for admission to the TCU. Inpatient E&M: 50126 Subs Hosp L2
--- NOTE | 2019-07-19 15:21 | PN.RENAL_ITS ---
Subjective: No new complaints - Physical Exam Vitals/I&O's: Vital Signs Temp Pulse Resp BP Pulse Ox 97.9 F 74 18 147/56 H 93 07/19/19 14:26 07/19/19 14:26 07/19/19 14:26 07/19/19 14:26 07/19/19 14:26 Oxygen Flow Rate (L/min) 2 Oxygen Delivery Method Room Air Weight: 175.3 kg Body Mass Index (BMI) 44.6 Finger Stick Blood Glucose 166 Intake and Output for Last 24 Hours 07/17/19 07/18/19 07/19/19 23:59 23:59 23:59 Intake Total 3197.5 / 3597.5 3258.75 / 3558.75 1600 / 1600 Output Total 660 / 905 1435 / 1785 1010 / 1010 Balance 2537.5 / 2692.5 1823.75 / 1773.75 590 / 590 General: Alert, Oriented x3, Cooperative HEENT: Atraumatic, PERRLA, EOMI, Normocephalic Neck: Supple, No JVD, Negative Carotid Bruits Lungs: Clear to auscultation, Normal air movement Cardiovascular: Regular rate, No murmurs Abdomen: Bowel Sounds Present, Soft, Non Tender Extremities: No edema, Capillary Refill Less than 3 Seconds Skin: No rashes, No breakdown Musculoskeletal: No Tenderness to Palpation of Joints or Extremities Neurological: Cranial nerves II-XII grossly intact Psych/Mental Status: Normal Affect, Appropriate Laboratory Results 07/18/19 15:05: POC Glucose 178 H 07/18/19 22:01: POC Glucose 188 H 07/19/19 06:26: WBC 8.8, RBC 3.24 L, Hgb 8.8 L, Hct 28.8 L, MCV 88.9, MCH 27.2, MCHC 30.6 L, RDW Std Deviation 54.8 H, RDW Coeff of Pool 17.0 H, Plt Count 184, MPV 10.8, Immature Gran % (Auto) 0.300, Neut % (Auto) 72.7 H, Lymph % (Auto) 14.0 L, [place] % (Auto) 9.5, Eos % (Auto) 3.3, Baso % (Auto) 0.2, Absolute Neuts (auto) 6.4, Absolute Lymphs (auto) 1.23, Nucleated RBC % 0 07/19/19 06:26: Sodium 134 L, Potassium 4.8, Chloride 105, Carbon Dioxide 20.0 L , Anion Gap 9, BUN 95 H, Creatinine 4.62 H, Estim Creat Clear Calc 20.88, Est GFR (MDRD) Af Amer 17 L, Est GFR (MDRD) Non-Af 14 L, BUN/Creatinine Ratio 20.6 H , Glucose 183 H, Calcium 7.9 L 07/19/19 07:28: POC Glucose 175 H 07/19/19 11:24: POC Glucose 161 H 07/19/19 12:19: COVID-19 (YAYA) Pending Current Medications Amlodipine Besylate (Norvasc) 10 mg PO DAILY [facility] Last Admin: 07/19/19 09:37 Dose: 10 mg Documented by: Bisacodyl (Dulcolax) 5 mg PO DAILY [facility] Last Admin: 07/19/19 09:37 Dose: 5 mg Documented by: Carvedilol (Coreg) 3.125 mg PO BID [facility] Last Admin: 07/19/19 09:37 Dose: 3.125 mg Documented by: Dextrose (D50w Syringe) 0 gm IV X1 PRN; Protocol PRN Reason: Hypoglycemia Diazepam (Valium) 5 mg PO 4X/DAY PRN PRN PRN Reason: SPASMS Glucagon () 1 mg IM .X1 PRN PRN Reason: Hypoglycemia Guaifenesin (Mucinex) 1,200 mg PO BID [facility] Last Admin: 07/19/19 09:37 Dose: 1,200 mg Documented by: Heparin Sodium (Porcine) (Heparin Na) 5,000 unit SC Q8 [facility] Last Admin: 07/19/19 12:54 Dose: 5,000 unit Documented by: Hydralazine HCl (Apresoline) 50 mg PO BID [facility] Last Admin: 07/19/19 09:36 Dose: 50 mg Documented by: Hydromorphone HCl (Dilaudid Inj) 1 mg IV Q3H PRN PRN PRN Reason: Pain Score 6-10/10 Last Admin: 07/18/19 15:13 Dose: 1 mg Documented by: Sodium Chloride () 250 mls @ 15 mls/hr IV .[id number] PRN PRN Reason: Saline Flush Cefepime HCl 1 gm/ Sodium (Chloride) 50 mls @ 100 mls/hr IV Q24H [facility] Last Infusion: 07/18/19 22:46 Dose: Infused Documented by: Sodium Chloride () 1,000 mls @ 125 mls/hr IV .Q8H [facility] Last Admin: 07/19/19 07:29 Dose: 125 mls/hr Documented by: Insulin Human Lispro (Humalog Kwikpen (Bkc)) 0 unit SC ACHS [facility]; Protocol Last Admin: 07/19/19 12:50 Dose: 2 u Documented by: Insulin Human Lispro (Humalog Kwikpen (Bkc)) 30 unit SC 0800,1200,1700 [facility] Last Admin: 07/19/19 12:48 Dose: Not Given Documented by: Insulin Human NPH (Humulin N (Bk)) 40 units SC QHS [facility] Last Admin: 07/18/19 22:02 Dose: Not Given Documented by: Linezolid (Zyvox) 600 mg PO BID [facility] Last Admin: 07/19/19 09:36 Dose: 600 mg Documented by: Melatonin (Melatonin) 3 mg PO QHS PRN PRN PRN Reason: INSOMNIA Metronidazole (Flagyl) 500 mg PO TID [facility] Last Admin: 07/19/19 12:51 Dose: 500 mg Documented by: Mupirocin (Bactroban) 1 applic TOPICAL QODAY [facility]; Protocol Nutritional [facility] ([facility] [place] [facility] Last Admin: 07/19/19 09:33 Dose: Not Given Documented by: Ondansetron HCl (Zofran) 4 mg IV Q6H PRN PRN PRN Reason: NAUSEA Last Admin: 07/19/19 09:43 Dose: 4 mg Documented by: Oxycodone HCl (Oxyir) 10 mg PO Q4H PRN PRN PRN Reason: Pain Score 4-5/10 Last Admin: 07/19/19 09:57 Dose: 10 mg Documented by: Senna (Senokot) 2 tablet PO BID [facility] Last Admin: 07/19/19 09:36 Dose: 2 tablet Documented by: Sodium Chloride () 10 - 40 ml IV UD PRN PRN Reason: SALINE FLUSH Last Admin: 07/19/19 09:43 Dose: 20 ml Documented by: Medical Necessity - Tobacco Use Smoking Status: Never smoker Assessment/Plan All Active Problems MRSA (methicillin resistant Staphylococcus aureus) (Acute) Diabetic foot infection (Acute) Acute renal failure, chronic kidney disease stage III. Baseline creatinine at the time of last admission was around 1.6. admission creatinine is 5.7. Only prescription that I see according to history is antibiotics. Urine analysis shows some proteinuria but no leukocytes. Urine eosinophils are pending but with negative leukocytes this is likely to be negative. Renal ultrasound looks acceptable. most likely this is ATN related to vancomycin. Creatinine improved initially, over the last 3 days higher than before. No new events. Blood pressure is acceptable. No new medications. Hernandez is draining clear yellow urine. Bladder scans are negative. Urine output is okay. I will repeat a urine analysis and sent for urine eosinophils for now. Maintain fluids. If creatinine is better tomorrow, can likely DC to longterm or transitional care unit. Hyperkalemia. better acidosis. likely contributing to hyperkalemia. better Hypertension. Current medication list reviewed. Blood pressure is ok. dw Dr Rolle
[2019-07-19 16:45] LABS: Bedside Glucose 165 mg/dL (70-110)
--- NOTE | 2019-07-19 16:53 | PN.ID_ITS ---
Subjective: No fever, no events overnight - Physical Exam Vitals/I&O's: Vital Signs Temp Pulse Resp BP Pulse Ox 97.9 F 74 18 147/56 H 93 07/19/19 14:26 07/19/19 14:26 07/19/19 14:26 07/19/19 14:26 07/19/19 14:26 Oxygen Flow Rate (L/min) 2 Oxygen Delivery Method Room Air Weight: 175.3 kg Body Mass Index (BMI) 44.6 Finger Stick Blood Glucose 166 Intake and Output for Last 24 Hours 07/17/19 07/18/19 07/19/19 23:59 23:59 23:59 Intake Total 3197.5 / 3597.5 3258.75 / 3558.75 2600 / 2600 Output Total 660 / 905 1435 / 1785 1010 / 1010 Balance 2537.5 / 2692.5 1823.75 / 1773.75 1590 / 1590 General: No apparent distress Lungs: Clear to auscultation, Normal air movement Cardiovascular: Regular rate, Regular Rhythm Abdomen: Soft, Non Tender, Non-Distended Skin: No rashes Laboratory Results 07/18/19 15:05: POC Glucose 178 H 07/18/19 22:01: POC Glucose 188 H 07/19/19 06:26: WBC 8.8, RBC 3.24 L, Hgb 8.8 L, Hct 28.8 L, MCV 88.9, MCH 27.2, MCHC 30.6 L, RDW Std Deviation 54.8 H, RDW Coeff of Pool 17.0 H, Plt Count 184, MPV 10.8, Immature Gran % (Auto) 0.300, Neut % (Auto) 72.7 H, Lymph % (Auto) 14.0 L, [place] % (Auto) 9.5, Eos % (Auto) 3.3, Baso % (Auto) 0.2, Absolute Neuts (auto) 6.4, Absolute Lymphs (auto) 1.23, Nucleated RBC % 0 07/19/19 06:26: Sodium 134 L, Potassium 4.8, Chloride 105, Carbon Dioxide 20.0 L , Anion Gap 9, BUN 95 H, Creatinine 4.62 H, Estim Creat Clear Calc 20.88, Est GFR (MDRD) Af Amer 17 L, Est GFR (MDRD) Non-Af 14 L, BUN/Creatinine Ratio 20.6 H , Glucose 183 H, Calcium 7.9 L 07/19/19 07:28: POC Glucose 175 H 07/19/19 11:24: POC Glucose 161 H 07/19/19 12:19: COVID-19 (YAYA) Pending 07/19/19 16:39: POC Glucose 165 H Current Medications Amlodipine Besylate (Norvasc) 10 mg PO DAILY [facility] Last Admin: 07/19/19 09:37 Dose: 10 mg Documented by: Bisacodyl (Dulcolax) 5 mg PO DAILY [facility] Last Admin: 07/19/19 09:37 Dose: 5 mg Documented by: Carvedilol (Coreg) 3.125 mg PO BID [facility] Last Admin: 07/19/19 09:37 Dose: 3.125 mg Documented by: Dextrose (D50w Syringe) 0 gm IV X1 PRN; Protocol PRN Reason: Hypoglycemia Diazepam (Valium) 5 mg PO 4X/DAY PRN PRN PRN Reason: SPASMS Glucagon () 1 mg IM .X1 PRN PRN Reason: Hypoglycemia Guaifenesin (Mucinex) 1,200 mg PO BID [facility] Last Admin: 07/19/19 09:37 Dose: 1,200 mg Documented by: Heparin Sodium (Porcine) (Heparin Na) 5,000 unit SC Q8 [facility] Last Admin: 07/19/19 12:54 Dose: 5,000 unit Documented by: Hydralazine HCl (Apresoline) 50 mg PO BID [facility] Last Admin: 07/19/19 09:36 Dose: 50 mg Documented by: Hydromorphone HCl (Dilaudid Inj) 1 mg IV Q3H PRN PRN PRN Reason: Pain Score 6-10/10 Last Admin: 07/18/19 15:13 Dose: 1 mg Documented by: Sodium Chloride () 250 mls @ 15 mls/hr IV .[id number] PRN PRN Reason: Saline Flush Cefepime HCl 1 gm/ Sodium (Chloride) 50 mls @ 100 mls/hr IV Q24H [facility] Last Infusion: 07/18/19 22:46 Dose: Infused Documented by: Sodium Chloride () 1,000 mls @ 125 mls/hr IV .Q8H [facility] Last Admin: 07/19/19 16:36 Dose: 125 mls/hr Documented by: Insulin Human Lispro (Humalog Kwikpen (Bk)) 0 unit SC ACHS [facility]; Protocol Last Admin: 07/19/19 16:39 Dose: 2 u Documented by: Insulin Human Lispro (Humalog Kwikpen (Bkc)) 30 unit SC 0800,1200,1700 [facility] Last Admin: 07/19/19 16:39 Dose: Not Given Documented by: Insulin Human NPH (Humulin N (Bk)) 40 units SC QHS [facility] Last Admin: 07/18/19 22:02 Dose: Not Given Documented by: Linezolid (Zyvox) 600 mg PO BID [facility] Last Admin: 07/19/19 09:36 Dose: 600 mg Documented by: Melatonin (Melatonin) 3 mg PO QHS PRN PRN PRN Reason: INSOMNIA Metronidazole (Flagyl) 500 mg PO TID [facility] Last Admin: 07/19/19 12:51 Dose: 500 mg Documented by: Mupirocin (Bactroban) 1 applic TOPICAL QODAY [facility]; Protocol Nutritional Formula (Vu - [place] Flavor) 1 packet PO BIDCM [facility] Last Admin: 07/19/19 16:36 Dose: 1 packet Documented by: Ondansetron HCl (Zofran) 4 mg IV Q6H PRN PRN PRN Reason: NAUSEA Last Admin: 07/19/19 09:43 Dose: 4 mg Documented by: Oxycodone HCl (Oxyir) 10 mg PO Q4H PRN PRN PRN Reason: Pain Score 4-5/10 Last Admin: 07/19/19 09:57 Dose: 10 mg Documented by: Senna (Senokot) 2 tablet PO BID [facility] Last Admin: 07/19/19 09:36 Dose: 2 tablet Documented by: Sodium Chloride () 10 - 40 ml IV UD PRN PRN Reason: SALINE FLUSH Last Admin: 07/19/19 09:43 Dose: 20 ml Documented by: Medical Necessity - Tobacco Use Smoking Status: Never smoker Route of nutrition/ use of supplements: [] Nutritional Intake: [] IV Site: [] Hernandez Catheter: [] - Assessment/Plan Antibiotics: [] Assessment/Plan: [] L foot osteo with new JOANNA - had been on outpt iv vanc and cefepime with po flagyl. Outpt vanc trough over 40 prior to admit. Now s/p BKA. On linezolid/cefepime, plan on stopping prior to transfer to TCU. Will check covid for pre-admit clearance to TCU. Will follow
[2019-07-19 16:59] LABS: Bacteria 0 SEEN /hpf (None Seen); Mucous, Urine 0 SEEN /hpf (<or=2+); Red Blood Cells-Urine 0 SEEN /hpf (0-5); Squamous Epithelial Cells - UA 0 SEEN /hpf (0-5)
[2019-07-19 17:04] LABS: Color, Urine Yellow (Yellow); Glucose, Dipstick 50 mg/dl (Normal); Ketone-Dipstick Negative (Negative); Leukocyte Esterase-Dipstick Negative /ul (Negative); Nitrite-Dipstick Negative (Negative); Occult Blood-Urine 25 /ul (Negative); Protein-Dipstick 100 mg/dl (Negative); Urine Bilirubin Dipstick Negative (Negative); Urine Clarity Clear (Clear); Urine Urobilinogen Normal (Normal)
[2019-07-19 17:16] LABS: White Blood Cells 0-5 SEEN /hpf (0-5)
[2019-07-19 22:00] LABS: Bedside Glucose 145 mg/dL (70-110)
[2019-07-20 02:24] VITALS: BP 130/64; PULSE 79; RESP 17; TEMP 36.9; O2SAT 94
[2019-07-20] MEDS: Heparin Injection (Vial) 5,000 UNIT/ML VIAL 5000 UNIT SC ×2 (06:39→13:50)
[2019-07-20] MEDS: metroNIDAZOLE 500 MG Tablet PO (06:40)
[2019-07-20] MEDS: Insulin Lispro 100 UNIT/ML INSULN.PEN SC ×3 (06:40→16:05)
[2019-07-20 07:20] LABS: Bedside Glucose 163 mg/dL (70-110)
[2019-07-20 08:09] LABS: Anion Gap 8 (5-15); BUN 90 mg/dL (7-18); BUN/Creat Ratio 19.2 RATIO (10-20); Calcium,Total 7.9 mg/dL (8.5-10.1); Chloride 110 mmol/L (98-107); Creatinine, Serum 4.68 mg/dL (0.70-1.30); EST Glomerular Filtration Rate 14 mL/min (>60); Est Glom Filt Rate - Afr Amer 16 mL/min (>60); Estimated Creatinine Clearance 20.61 ml/min; Glucose 166 mg/dL (74-106); Potassium 4.9 mmol/L (3.5-5.1); Sodium Level 139 mmol/L (136-145)
[2019-07-20 08:35] VITALS: BP 132/53; PULSE 70; RESP 16; TEMP 37.7; O2SAT 94
[2019-07-20 08:36] VITALS: PULSE 80
[2019-07-20 08:47] VITALS: PULSE 80
[2019-07-20] MEDS: Senna Tablet 2 TABLET PO (08:47)
[2019-07-20] MEDS: hydrALAZINE 50 MG Tablet PO (08:47)
[2019-07-20] MEDS: Linezolid 600 MG Tablet PO (08:48)
[2019-07-20] MEDS: Carvedilol 3.125 MG TABLET PO (08:48)
[2019-07-20] MEDS: Bisacodyl 5 MG Tablet PO (08:50)
[2019-07-20] MEDS: guaiFENesin 1,200 MG Tablet 1200 MG PO (08:50)
[2019-07-20] MEDS: amLODIPine 10 MG Tablet PO (08:59)
[2019-07-20] MEDS: 0.9% Normal Saline 1,000 ML 125 ML IV (10:33)
[2019-07-20 11:50] LABS: Bedside Glucose 169 mg/dL (70-110)
--- NOTE | 2019-07-20 11:50 | PN.RENAL_ITS ---
Subjective: no new complaints - Physical Exam Vitals/I&O's: Vital Signs Temp Pulse Resp BP Pulse Ox 99.8 F H 80 16 132/53 H 94 07/20/19 08:35 07/20/19 08:47 07/20/19 08:35 07/20/19 08:35 07/20/19 08:35 Oxygen Flow Rate (L/min) 2 Oxygen Delivery Method Room Air Weight: 175.3 kg Body Mass Index (BMI) 44.6 Finger Stick Blood Glucose 166 Intake and Output for Last 24 Hours 07/18/19 07/19/19 07/20/19 23:59 23:59 23:59 Intake Total 3258.75 / 3558.75 3391.67 / 3391.67 1340 / 1340 Output Total 1435 / 1785 2423 / 2423 1463 / 1463 Balance 1823.75 / 1773.75 968.67 / 968.67 -123 / -123 General: Alert, Oriented x3, Cooperative HEENT: Atraumatic, PERRLA, EOMI, Normocephalic Neck: Supple, No JVD, Negative Carotid Bruits Lungs: Clear to auscultation, Normal air movement Cardiovascular: Regular rate, No murmurs Abdomen: Bowel Sounds Present, Soft, Non Tender Extremities: No edema, Capillary Refill Less than 3 Seconds Skin: No rashes, No breakdown Musculoskeletal: No Tenderness to Palpation of Joints or Extremities Neurological: Cranial nerves II-XII grossly intact Psych/Mental Status: Normal Affect, Appropriate Laboratory Results 07/19/19 12:19: COVID-19 (YAYA) Cancelled 07/19/19 16:39: POC Glucose 165 H 07/19/19 16:45: Eos Smear Total Cells Pending 07/19/19 16:45: Urine Color Yellow, Urine Clarity Clear, Urine pH 6.0, Ur Specific [place] 1.010, Urine Protein 100 H, Urine Glucose (UA) 50 H, Urine Ketones Negative, Urine Occult Blood 25 H, Urine Nitrite Negative, Urine Bilirubin Negative, Urine Urobilinogen Normal, Ur Leukocyte Esterase Negative, Urine RBC 0 SEEN, Urine WBC 0-5 SEEN, Ur Squamous Epith Cells 0 SEEN, Urine Bacteria 0 SEEN, Urine Mucus 0 SEEN 07/19/19 21:00: POC Glucose 145 H 07/20/19 06:38: POC Glucose 163 H 07/20/19 07:46: Sodium 139, Potassium 4.9, Chloride 110 H, Carbon Dioxide 21.0, Anion Gap 8, BUN 90 H, Creatinine 4.68 H, Estim Creat Clear Calc 20.61, Est GFR (MDRD) Af Amer 16 L, Est GFR (MDRD) Non-Af 14 L, BUN/Creatinine Ratio 19.2, Glucose 166 H, Calcium 7.9 L 07/20/19 11:25: POC Glucose Pending Current Medications Amlodipine Besylate (Norvasc) 10 mg PO DAILY [facility] Last Admin: 07/20/19 08:59 Dose: 10 mg Documented by: Bisacodyl (Dulcolax) 5 mg PO DAILY [facility] Last Admin: 07/20/19 08:50 Dose: 5 mg Documented by: Carvedilol (Coreg) 3.125 mg PO BID [facility] Last Admin: 07/20/19 08:48 Dose: 3.125 mg Documented by: Dextrose (D50w Syringe) 0 gm IV X1 PRN; Protocol PRN Reason: Hypoglycemia Diazepam (Valium) 5 mg PO 4X/DAY PRN PRN PRN Reason: SPASMS Glucagon () 1 mg IM .X1 PRN PRN Reason: Hypoglycemia Guaifenesin (Mucinex) 1,200 mg PO BID [facility] Last Admin: 07/20/19 08:50 Dose: 1,200 mg Documented by: Heparin Sodium (Porcine) (Heparin Na) 5,000 unit SC Q8 [facility] Last Admin: 07/20/19 06:39 Dose: 5,000 unit Documented by: Hydralazine HCl (Apresoline) 50 mg PO BID [facility] Last Admin: 07/20/19 08:47 Dose: 50 mg Documented by: Hydromorphone HCl (Dilaudid Inj) 1 mg IV Q3H PRN PRN PRN Reason: Pain Score 6-10/10 Last Admin: 07/18/19 15:13 Dose: 1 mg Documented by: Sodium Chloride () 250 mls @ 15 mls/hr IV .[id number] PRN PRN Reason: Saline Flush Cefepime HCl 1 gm/ Sodium (Chloride) 50 mls @ 100 mls/hr IV Q24H [facility] Last Infusion: 07/19/19 21:33 Dose: Infused Documented by: Sodium Chloride () 1,000 mls @ 125 mls/hr IV .Q8H [facility] Last Admin: 07/20/19 10:33 Dose: 125 mls/hr Documented by: Insulin Human Lispro (Humalog Kwikpen (Bkc)) 0 unit SC ACHS [facility]; Protocol Last Admin: 07/20/19 11:33 Dose: 2 u Documented by: Insulin Human Lispro (Humalog Kwikpen (Bkc)) 30 unit SC 0800,1200,1700 [facility] Last Admin: 07/20/19 11:31 Dose: Not Given Documented by: Insulin Human NPH (Humulin N (Bk)) 40 units SC QHS [facility] Last Admin: 07/19/19 21:02 Dose: Not Given Documented by: Linezolid (Zyvox) 600 mg PO BID [facility] Last Admin: 07/20/19 08:48 Dose: 600 mg Documented by: Melatonin (Melatonin) 3 mg PO QHS PRN PRN PRN Reason: INSOMNIA Metronidazole (Flagyl) 500 mg PO TID [facility] Last Admin: 07/20/19 06:40 Dose: 500 mg Documented by: Mupirocin (Bactroban) 1 applic TOPICAL QODAY [facility]; Protocol Nutritional Formula (Vu - [place] Flavor) [facility] Last Admin: 07/20/19 08:47 Dose: 1 packet Documented by: Ondansetron HCl (Zofran) 4 mg IV Q6H PRN PRN PRN Reason: NAUSEA Last Admin: 07/19/19 09:43 Dose: 4 mg Documented by: Oxycodone HCl (Oxyir) 10 mg PO Q4H PRN PRN PRN Reason: Pain Score 4-5/10 Last Admin: 07/19/19 09:57 Dose: 10 mg Documented by: Senna (Senokot) 2 tablet PO BID [facility] Last Admin: 07/20/19 08:47 Dose: 2 tablet Documented by: Sodium Chloride () 10 - 40 ml IV UD PRN PRN Reason: SALINE FLUSH Last Admin: 07/19/19 09:43 Dose: 20 ml Documented by: Medical Necessity - Tobacco Use Smoking Status: Never smoker Assessment/Plan All Active Problems MRSA (methicillin resistant Staphylococcus aureus) (Acute) Diabetic foot infection (Acute) Acute renal failure, chronic kidney disease stage III. Baseline creatinine at the time of last admission was around 1.6. admission creatinine is 5.7. Only prescription that I see according to history is antibiotics. Urine analysis shows some proteinuria but no leukocytes. Urine eosinophils are pending but with negative leukocytes this is likely to be negative. Renal ultrasound looks acceptable. most likely this is ATN related to vancomycin. Creatinine improved initially, over the last 3 days higher than before. No new events. Blood pressure is acceptable. No new medications. Hernandez is draining clear yellow urine. Bladder scans are negative. Urine output is okay. repeat UA is same. Hyperkalemia. better acidosis. likely contributing to hyperkalemia. better Hypertension. Current medication list reviewed. Blood pressure is ok. dw Dr Sariah lora to dc
[2019-07-20 13:46] VITALS: BP 144/69; PULSE 71; RESP 16; TEMP 36.9; O2SAT 91
--- NOTE | 2019-07-20 14:38 | PCM.TXEXTCAR ---
- Diet 07/15/19 18:19 Diet: Renal - Carb-Controlled Is pt able to select menu?: Yes Diet Comments: low sodium - Routine Orders/Code Status Enema Type: Fleetz Enema Frequency: Daily PRN Suppository Type: Dulcolax 10mg Suppository Frequency: Daily PRN O2 Frequency: PRN Keep PO Greater than or Equal to (%): 90 Routine Lab Work: BMP - daily to monitor Cr level - Wound(s) right heel Wound Type: Neuropathic/Diabetic Foot Ulcer Dressing Change: Aquacel left foot Wound Type: Neuropathic/Diabetic Foot Ulcer left posterior heel Wound Type: Pressure Injury Dressing Change: Dry Sterile Dressing left plantar foot Wound Type: Neuropathic/Diabetic Foot Ulcer Dressing Change: betadine moistened gauze L LEG BELOW KNEE AMPUTATION Wound Type: open surgical wound s/p L BKA Dressing Change: KCI wound VAC - Therapies Weight Bearing: Weight bearing as tolerated Physical Therapy: Eval and Treat Occupational Therapy: Eval and Treat - Allergies/Procedures Done in Hospital Allergies/Adverse Reactions: Allergies ciprofloxacin [From Cipro] Allergy (Verified 06/29/19 11:34) Rash he has tolerated oral cipro in the past levofloxacin [From Levaquin] Allergy (Verified 06/29/19 11:34) Hives morphine Allergy (Verified 07/14/19 20:42) Hives Penicillins Allergy (Verified 06/29/19 11:34) Hives silver Allergy (Verified 06/29/19 11:34) Rash Skin márquez and itches, rash Procedures: None - Type of Care/Length of Stay Estimated LOS: Convalescent Care Less Than 30 days Type of Care Needed: Skilled Rehab Potential: Fair Prognosis: Fair - Additional Orders/Day of Discharge Additional Orders: keep well hydrated orally. MOnitor intake and output chart. will need daily BMP to follow Cr level Day of Discharge: 07/20/19 - Dietary and Speech Recommendations Dietitian Recommendations/Changes: Rec continue Vu 1 packet BID for wound healing. Will continue ONS w/ meals. - Follow Up Care Primary Care Physician: Ac Felix MD [Primary Care Provider] - Please follow up with your Primary Care Physician in: 1-2 weeks Please Follow Up With: Nabeel Alfaro MD When: one week Please Follow Up With: Avila Bartlett MD When: 1-2 weeks Please Follow Up With: Tip Pompa MD When: 1-2 weeks
--- NOTE | 2019-07-20 14:49 | CASEMGMT ---
Addendum entered by Emperatriz Aldana 07/20/19 14:54: COLLEEN placed a call to [facility], Nuris Fulton no longer works at [employer] so pt's new CM is Lulu Gutierrez. COLLEEN updated Lulu that pt will be discharged to TCU today. COLLEEN updated TCU COLLEEN Cummins that APS will need to be followed up with once pt discharges from [facility] TCU. Original Note: Social Work Note Pt's COVID test came back negative, pt is able to discharge to TCU today. COLLEEN placed a call to [place] in TCU and left her a message that pt will be discharged to TCU today. COLLEEN updated pt. Plan: TCU today Emperatriz Aldana HAND ASSEMBLER, LAN ENGINEER
[2019-07-20] MEDS: 0.9% Saline Lock 10 ML Syringe IV (15:59)
[2019-07-20 16:15] LABS: Bedside Glucose 167 mg/dL (70-110)
--- NOTE | 2019-07-20 16:17 | PCM.DC.SUM ---
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 - Secondary Discharge Diagnosis Chronic Problems History of transmetatarsal amputation of left foot (Chronic) Chronic ulcer of left foot with necrosis of muscle (Chronic) Acute kidney injury superimposed on CKD (Chronic) Lymphedema (Chronic) Venous insufficiency (Chronic) Peripheral vascular disease (Chronic) Tinea unguium (Chronic) Chronic ulcer of left foot with fat layer exposed (Chronic) Burn of leg (Chronic) Hammer toe of right foot (Chronic) Walking difficulty due to ankle and foot (Chronic) Obesity (Chronic) Type 2 diabetes mellitus with diabetic polyneuropathy (Chronic) Ulcer of left lower extremity with fat layer exposed (Chronic) Chronic ulcer of left foot with fat layer exposed (Chronic) Ulcer of right foot with fat layer exposed (Chronic) Ulcer of right lower extremity with fat layer exposed (Chronic) Ulcer of right lower extremity with fat layer exposed (Chronic) Chronic ulcer of left foot with fat layer exposed (Chronic) Dehiscence of amputation stump (Chronic) Type 2 diabetes mellitus with diabetic polyneuropathy (Chronic) Non-pressure chronic ulcer of right heel and midfoot with fat layer exposed (Chronic) Obesity (Chronic) Diabetes mellitus with polyneuropathy (Chronic) Non-pressure chronic ulcer of right heel and midfoot with necrosis of muscle (Chronic) Diabetic foot ulcer (Chronic) Osteomyelitis of foot (Chronic) Ulcer of right heel and midfoot with fat layer exposed (Chronic) Chronic ulcer of left foot with necrosis of muscle (Chronic) Hospital Course and Treatment Imaging Results: Diagnostic Data Chest X-Ray 07/11/19 22:06 IMPRESSION: Decreased inspiration with vascular crowding versus mild vascular congestion. Electronically Signed: Lisette Bell MD at 0:22 EDT , Service support , Renal Ultrasound 07/12/19 15:41 IMPRESSION: No definite acute or significant abnormality seen. Exam is limited by patient''s size. Electronically Signed: Harinder Hampton MD at 18:55 EDT , Service support , Consultations 07/11/19 18:28 Consult: Onc/Wound/military personnel specialist Routine Comment: Reason for Consult:: Left foot diabetic wounds Operations: - - I&D LLE with bone Bx. 07/01/19 left BKA on 07/15/2019 Procedures: None Summary of Care Provided: The patient is a 64 year old M with an extensive past medical history as outlined was admitted through the ED on 07/11/2019 with a complaint of abnormal labs. Patient had recently been seen for chronic ulcer of the left foot and osteomyelitis and discharged home on IV antibiotics via PICC line. He was discharged on IV vancomycin and cefepime. His home nurse hugo his bloodwork and he was found to have elevated Cr of >5, with his normal baseline being ~ 1.6. He was therefore admitted and managed for JOANNA on CKD3, likely due to vancomycin. He was hydrated with IVF and nephrology was consulted. Lisinopril and Lasix were discontinued. ID was also consulted. Podiatry and plastic surgery were also consulted for left below-knee amputation as this was patient's wish as he did not want to be continuously dealing with the chronic ulceration and osteomyelitis of his left lower extremity. Patient had a left BKA on 07/15/2019 and tolerated procedure well. Creatinine initially seemed to trend down but subsequently continue to trend upwards and was at a peak of 4.68 at time of discharge. Patient however was making adequate urine throughout the nephrology opted for conservative management. Renal ultrasound done showed no definite acute or significant abnormality. Though patient's creatinine does not trend back down to normal, he was deemed to be stable as he was making good urine and keeping well hydrated. After discussion with nephrology, plan was for patient to be discharged to the transitional care unit and to have follow-up BMP daily to assess creatinine. Nephrology will also follow patient up in the TCU. Patient was on IV cefepime and linezolid during admission. However on discharge, because he had had a BKA, ID determined that he did not need any further antibiotics. Patient was discharged to the transitional care unit on 07/20/2019. He is follow-up with his primary care doctor, plastic surgery, infectious disease, nephrology and podiatry. Patient seen and examined prior to discharge. He had no complaints. Review of signs otherwise negative. Labs and vitals reviewed. Home medication reviewed and reconciled. o/e: Vital Signs Temp Pulse Resp BP Pulse Ox 98.5 F 71 16 144/69 H 91 07/20/19 13:46 07/20/19 13:46 07/20/19 13:46 07/20/19 13:46 07/20/19 13:46 General: Alert, Oriented x3, Cooperative, No apparent distress, - - Morbidly obese. HEENT: Atraumatic, PERRLA, EOMI, Normocephalic Oral: Moist Mucosa Neck: Supple, No JVD, Negative Carotid Bruits Lungs: Clear to auscultation, Normal air movement, No rhonchi, No wheeze, No rales Cardiovascular: Regular rate, Regular Rhythm, Normal S1, Normal S2, No murmurs Abdomen: Bowel Sounds Present, Soft, Non Tender, Non-Distended, No Hepato-splenomegaly Extremities: - - left BKA stump in bandage; drain in place. Skin: No rashes, No breakdown Musculoskeletal: No Tenderness to Palpation of Joints or Extremities Lymphatic: No Cervical, Supraclavicular, or Inguinal Adenopathy Neurological: Cranial nerves II-XII grossly intact, Neuro grossly intact, Motor Exam 5/5 strength throughout Psych/Mental Status: Normal Affect, Appropriate, Alert and oriented to time, place, person, mood and affect Plan is for discharge to TCU. Of note, lisinopril was discontinued and patient was continued on his metoprolol and amlodipine. He was also on hydralazine which he is to continue. - Physical Exam Vitals/I&O's: Vital Signs Temp Pulse Resp BP Pulse Ox 98.5 F 71 16 144/69 H 91 07/20/19 13:46 07/20/19 13:46 07/20/19 13:46 07/20/19 13:46 07/20/19 13:46 Oxygen Flow Rate (L/min) 2 Oxygen Delivery Method Room Air Weight: 386 lb 7.525 oz Body Mass Index (BMI) 44.6 Finger Stick Blood Glucose 166 Intake and Output for Last 24 Hours 07/18/19 07/19/19 07/20/19 23:59 23:59 23:59 Intake Total 3258.75 / 3558.75 3391.67 / 3391.67 202.25 / 2020. Output Total 1435 / 1785 2423 / 2423 1463 / 1463 Balance 1823.75 / 1773.75 968.67 / 968.67 558.25 / 558.25 Microbiology Past 72 Hours 07/19/19 12:19 Mucosa - Nasopharyngeal Coronavirus COVID-19 PCR - Final Laboratory Results 07/19/19 12:19: COVID-19 (YAYA) Cancelled 07/19/19 16:39: POC Glucose 165 H 07/19/19 16:45: Eos Smear Total Cells Pending 07/19/19 16:45: Urine Color Yellow, Urine Clarity Clear, Urine pH 6.0, Ur Specific [place] 1.010, Urine Protein 100 H, Urine Glucose (UA) 50 H, Urine Ketones Negative, Urine Occult Blood 25 H, Urine Nitrite Negative, Urine Bilirubin Negative, Urine Urobilinogen Normal, Ur Leukocyte Esterase Negative, Urine RBC 0 SEEN, Urine WBC 0-5 SEEN, Ur Squamous Epith Cells 0 SEEN, Urine Bacteria 0 SEEN, Urine Mucus 0 SEEN 07/19/19 21:00: POC Glucose 145 H 07/20/19 06:38: POC Glucose 163 H 07/20/19 07:46: Sodium 139, Potassium 4.9, Chloride 110 H, Carbon Dioxide 21.0, Anion Gap 8, BUN 90 H, Creatinine 4.68 H, Estim Creat Clear Calc 20.61, Est GFR (MDRD) Af Amer 16 L, Est GFR (MDRD) Non-Af 14 L, BUN/Creatinine Ratio 19.2, Glucose 166 H, Calcium 7.9 L 07/20/19 11:25: POC Glucose 169 H 07/20/19 15:59: POC Glucose 167 H Current Medications Amlodipine Besylate (Norvasc) 10 mg PO DAILY [facility] Last Admin: 07/20/19 08:59 Dose: 10 mg Documented by: Bisacodyl (Dulcolax) 5 mg PO DAILY [facility] Last Admin: 07/20/19 08:50 Dose: 5 mg Documented by: Carvedilol (Coreg) 3.125 mg PO BID [facility] Last Admin: 07/20/19 08:48 Dose: 3.125 mg Documented by: Dextrose (D50w Syringe) 0 gm IV X1 PRN; Protocol PRN Reason: Hypoglycemia Diazepam (Valium) 5 mg PO 4X/DAY PRN PRN PRN Reason: SPASMS Glucagon () 1 mg IM .X1 PRN PRN Reason: Hypoglycemia Guaifenesin (Mucinex) 1,200 mg PO BID [facility] Last Admin: 07/20/19 08:50 Dose: 1,200 mg Documented by: Heparin Sodium (Beef Lung) () 50 units IV UD PRN PRN Reason: PICC Line Heparin Flush Last Admin: 07/20/19 15:59 Dose: 50 units Documented by: Heparin Sodium (Porcine) (Heparin Na) 5,000 unit SC Q8 [facility] Last Admin: 07/20/19 13:50 Dose: 5,000 unit Documented by: Hydralazine HCl (Apresoline) 50 mg PO BID [facility] Last Admin: 07/20/19 08:47 Dose: 50 mg Documented by: Hydromorphone HCl (Dilaudid Inj) 1 mg IV Q3H PRN PRN PRN Reason: Pain Score 6-10/10 Last Admin: 07/18/19 15:13 Dose: 1 mg Documented by: Sodium Chloride () 250 mls @ 15 mls/hr IV .[id number] PRN PRN Reason: Saline Flush Sodium Chloride () 1,000 mls @ 125 mls/hr IV .Q8H [facility] Last Infusion: 07/20/19 16:00 Dose: Infused Documented by: Insulin Human Lispro (Humalog Kwikpen (Bkc)) 0 unit SC ACHS [facility]; Protocol Last Admin: 07/20/19 16:05 Dose: 2 u Documented by: Insulin Human Lispro (Humalog Kwikpen (Bkc)) 30 unit SC 0800,1200,1700 [facility] Last Admin: 07/20/19 16:01 Dose: Not Given Documented by: Insulin Human NPH (Humulin N (Bkc)) 40 units SC QHS [facility] Last Admin: 07/19/19 21:02 Dose: Not Given Documented by: Melatonin (Melatonin) 3 mg PO QHS PRN PRN PRN Reason: INSOMNIA Mupirocin (Bactroban) 1 applic TOPICAL QODAY [facility]; Protocol Last Admin: 07/20/19 12:33 Dose: Not Given Documented by: Nutritional Formula (Vu - [place] Flavor) 1 packet PO BIDCM [facility] Last Admin: 07/20/19 16:04 Dose: 1 packet Documented by: Ondansetron HCl (Zofran) 4 mg IV Q6H PRN PRN PRN Reason: NAUSEA Last Admin: 07/19/19 09:43 Dose: 4 mg Documented by: Oxycodone HCl (Oxyir) 10 mg PO Q4H PRN PRN PRN Reason: Pain Score 4-5/10 Last Admin: 07/19/19 09:57 Dose: 10 mg Documented by: Senna (Senokot) 2 tablet PO BID JIM Last Admin: 07/20/19 08:47 Dose: 2 tablet Documented by: Sodium Chloride () 10 - 40 ml IV UD PRN PRN Reason: SALINE FLUSH Last Admin: 07/20/19 15:59 Dose: 20 ml Documented by: Discharge Diet: Renal Diet Discharge Activity: Return to Normal Activity Weight Bearing Status: Weight bearing as tolerated Home Medications: Medications to take at Discharge Metoprolol(XL)Succ [Toprol Xl (Beta Marshall)] 50 mg PO DAILY 06/04/17 Insulin Regular, Human [Novolin R] 30 unit SQ TID #0 05/05/19 Insulin NPH Human Isophane [Novolin N Flexpen] 40 unit SQ QHS 06/29/19 hydrALAZINE [Apresoline] 50 mg PO BID 06/29/19 Amlodipine Besylate [Norvasc] 10 mg PO DAILY 07/11/19 Lactobacillus Acidophilus [Acidophilus] 1 tab PO BID 07/11/19 Primary Care Physician: Ac Felix MD [Primary Care Provider] - Please follow up with your Primary Care Physician in: 1-2 weeks Please Follow Up With: Nabeel Alfaro MD When: one week Please Follow Up With: Avila Bartlett MD When: 1-2 weeks Please Follow Up With: Tip Pomap MD When: 1-2 weeks Disposition: Alf facility Minutes spent on discharge:: 50 Patient Condition:: Stable Medical Necessity - Tobacco Use Smoking Status: Never smoker Meaningful Use Info Meaningful Use Diagnoses (Choose all that apply): None applicable Inpatient E&M: 93676 Disch Hosp
--- NOTE | 2019-07-20 16:56 | NURSING ---
Report called Desiree BATES.
[2019-07-21 15:52] LABS: Eosinophil Ct. Urine No Eosinophils Seen % (.)
== END 2019-07-20 18:15 | disposition skilled nursing facility (03) | DRG 474 ==
LOC: ED 16:24 → MS3 16:56
PROVIDERS: Anesthesiology; Internal Medicine; Internal Medicine Infectious Disease; Internal Medicine Nephrology; Surgery; Admitting Provider Family Medicine; Emergency Provider Emergency Medicine; PCP Family Medicine; Visit Provider Student in an Organized Health Care Education/Training Program
PROC: 0Y6J0Z2 Detachment at Left Lower Leg, Mid, Open Approach (ICD-10-PCS; principal; 2019-07-15 10:45)
DX: M86.672 Other chronic osteomyelitis, left ankle and foot (principal); N17.0 Acute kidney failure with tubular necrosis; Z68.43 Body mass index [BMI] 50.0-59.9, adult; L03.116 Cellulitis of left lower limb; L97.429 Non-pressure chronic ulcer of left heel and midfoot with unspecified severity; E87.2 Acidosis; D62 Acute posthemorrhagic anemia; E11.621 Type 2 diabetes mellitus with foot ulcer; L97.523 Non-pressure chronic ulcer of other part of left foot with necrosis of muscle; N18.3 Chronic kidney disease, stage 3 (moderate); I89.0 Lymphedema, not elsewhere classified; I87.2 Venous insufficiency (chronic) (peripheral); I12.9 Hypertensive chronic kidney disease with stage 1 through stage 4 chronic kidney disease, or unspecified chronic kidney disease; E78.5 Hyperlipidemia, unspecified; E66.01 Morbid (severe) obesity due to excess calories; E11.51 Type 2 diabetes mellitus with diabetic peripheral angiopathy without gangrene; E11.22 Type 2 diabetes mellitus with diabetic chronic kidney disease; E11.69 Type 2 diabetes mellitus with other specified complication; E87.5 Hyperkalemia; E11.42 Type 2 diabetes mellitus with diabetic polyneuropathy; E86.0 Dehydration; D63.1 Anemia in chronic kidney disease; E11.628 Type 2 diabetes mellitus with other skin complications; Z91.19 Patient's noncompliance with other medical treatment and regimen; B96.20 Unspecified Escherichia coli [E. coli] as the cause of diseases classified elsewhere; B96.5 Pseudomonas (aeruginosa) (mallei) (pseudomallei) as the cause of diseases classified elsewhere; B95.62 Methicillin resistant Staphylococcus aureus infection as the cause of diseases classified elsewhere; B95.0 Streptococcus, group A, as the cause of diseases classified elsewhere; B96.89 Other specified bacterial agents as the cause of diseases classified elsewhere; T36.8X5A Adverse effect of other systemic antibiotics, initial encounter; D50.9 Iron deficiency anemia, unspecified
CPT/HCPCS: 36415; 71045; 76770; 80048; 80053; 80202; 81001; 82436; 82728; 82962; 84133; 84134; 84300; 85018; 85025; 85027; 85652; 85730; 86140; 86850; 86900; 86901; 86920; 87086; 87205; 87635; 88307; 88311; 93005; 93923; 97802; 99251; 99284; G2023; J2997; J7030; J7040; J7120; P9016; A4216; G0463; J2405; U0002; U0004

== ENCOUNTER 2019-07-20 18:26 | Inpatient (IN) | payer MEDICARE, MEDICAID, SELFPAY ==
[2019-07-15 09:21] VITALS: BMI 44.6
[2019-07-20 18:38] VITALS: BP 150/75; PULSE 82; RESP 16; TEMP 36.9; O2SAT 93; BMI 49.4; BMI 49.5
--- NOTE | 2019-07-20 21:33 | HP.PCM_ITS ---
Problem List (1) Debility Status: Acute (2) Acute on chronic kidney failure Status: Acute (3) Osteomyelitis of left foot Status: Chronic (4) Diabetes mellitus Status: Chronic (5) Body mass index (BMI) 50.0-59.9, adult Status: Chronic (6) Hypertension Status: Chronic (7) Hyperlipidemia Status: Chronic (8) Chronic kidney disease Status: Chronic (9) Peripheral vascular disease Status: Chronic History of Present Illness Date of Admission: 07/20/19 Chief Complaint: Here for rehabilitation, strengthening, prior to discharge home alone. The patient is a 64 year old Male with below past medical history presented to [facility] Emergency Department 07/11/2019 with abnormal labs. 07/11/2019 Chest X-ray showed vascular crowding versus mild vascular congestion 07/11/2019 EKG normal sinus rhythm, low voltage QRS. Sent in due to kidneys shutting down. Recent hospitalization for diabetic foot infection. Osteomyelitis left foot on MRI, Incision & drainage, biopsy by Podiatry. Has PICC line, receiving Cefepime, Vancomycin. Vomiting x 1, chronic productive cough. BUN 80, Cr 5.81, K 5.3. IV Fluids given. 07/11/2019 Admit to Hospital. Stop Lasix, Stop Lisinopril, give IV fluids for acute kidney injury. Vancomycin, Cefepime, Flagyl for left 5th metatarsal osteomyelitis. Sliding Scale Insulin for Diabetes Mellitus II. Amlodipine, Carvedilol, Hydralazine for blood pressure control. 07/12/2019 Renal ultrasound negative. 07/12/2019 BAO doppler negative for significant PAOD. 07/15/2019 Dr. Pompa performed left below the knee amputation. Acute kidney injury though secondary to Vancomycin. Cr 4.68 at time of discharge. Conservative management of acute kidney injury, give IV fluids. No further antibiotics due to left below the knee amputation. 07/20/2019 Admit to TCU with debility, here for rehabilitation, strengthening, prior to discharge home alone. Past Medical History Past Medical History (Chronic Problems): Chronic Problems Osteomyelitis of left foot (Chronic) Diabetes mellitus (Chronic) Body mass index (BMI) 50.0-59.9, adult (Chronic) Hypertension (Chronic) Hyperlipidemia (Chronic) Chronic kidney disease (Chronic) History of transmetatarsal amputation of left foot (Chronic) Chronic ulcer of left foot with necrosis of muscle (Chronic) Acute kidney injury superimposed on CKD (Chronic) Lymphedema (Chronic) Venous insufficiency (Chronic) Peripheral vascular disease (Chronic) Tinea unguium (Chronic) Chronic ulcer of left foot with fat layer exposed (Chronic) Burn of leg (Chronic) Hammer toe of right foot (Chronic) Walking difficulty due to ankle and foot (Chronic) Obesity (Chronic) Type 2 diabetes mellitus with diabetic polyneuropathy (Chronic) Ulcer of left lower extremity with fat layer exposed (Chronic) Chronic ulcer of left foot with fat layer exposed (Chronic) Ulcer of right foot with fat layer exposed (Chronic) Ulcer of right lower extremity with fat layer exposed (Chronic) Ulcer of right lower extremity with fat layer exposed (Chronic) Chronic ulcer of left foot with fat layer exposed (Chronic) Dehiscence of amputation stump (Chronic) Type 2 diabetes mellitus with diabetic polyneuropathy (Chronic) Non-pressure chronic ulcer of right heel and midfoot with fat layer exposed (Chronic) Obesity (Chronic) Diabetes mellitus with polyneuropathy (Chronic) Non-pressure chronic ulcer of right heel and midfoot with necrosis of muscle (Chronic) Diabetic foot ulcer (Chronic) Osteomyelitis of foot (Chronic) Ulcer of right heel and midfoot with fat layer exposed (Chronic) Chronic ulcer of left foot with necrosis of muscle (Chronic) Allergies ciprofloxacin [From Cipro] Allergy (Verified 06/29/19 11:34) Rash he has tolerated oral cipro in the past levofloxacin [From Levaquin] Allergy (Verified 06/29/19 11:34) Hives morphine Allergy (Verified 07/14/19 20:42) Hives Penicillins Allergy (Verified 06/29/19 11:34) Hives silver Allergy (Verified 06/29/19 11:34) Rash Skin márquez and itches, rash Home Medications: Ambulatory Orders Medication Instructions Recorded Metoprolol(XL)Succ [Toprol Xl 50 mg PO DAILY 06/04/17 (Beta Marshall)] Insulin Regular, Human [Novolin R] 30 unit SQ TID #0 05/05/19 Insulin NPH Human Isophane 40 unit SQ QHS 06/29/19 [Novolin N Flexpen] hydrALAZINE [Apresoline] 50 mg PO BID 06/29/19 Amlodipine Besylate [Norvasc] 10 mg PO DAILY 07/11/19 Lactobacillus Acidophilus 1 tab PO BID 07/11/19 [Acidophilus] Surgical History: - - Bilateral great toe amputations, partial left 5th toe amputation, heel debridements and calcaneus bone biopsy, Left below the knee amputation. Psychiatric History: No pertinent psych hx Lives: Alone Smoking Status: Never smoker Tobacco Use: Non-smoker Alcohol: None Drugs: None - *Family History Maternal History Items: Diabetes, Hypertension Paternal History Items: - - from being hit by car Review of Systems Constitutional: Denies: Chills, Fever, Weight Change HEENT: Denies: Head Aches, Sinus Congestion, Sinus Drainage Cardiovascular: Denies: Chest Pain, Palpitations Respiratory: Denies: Cough, Shortness of breath at rest, Sputum production Gastrointestinal: Denies: Abdominal Pain, Nausea, Vomiting Genitourinary: Denies: Dysuria Musculoskeletal: Denies: Joint Pain, Joint Tenderness Skin: Denies: Rash, Wounds Neurological: Denies: Numbness, Tingling, Focal weakness Psychiatric: Denies: Anxiety, Depression, Homicidal Ideations, Suicidal Ideations Hematologic/ Lymphatic: Denies: Easy Bruising, Easy Bleeding VTE Information - Inpt Only VTE Present on Admission: No VTE Mechan Device Prophylaxis: Knee High SHOBHA Hose VTE Pharm Prophylaxis ordered?: No Reason prophylaxis not ordered:: Medical Contraindication - Hold, renal insufficiency. Patient Problems: Active and Suspected Problems Debility (Acute) Acute on chronic kidney failure (Acute) - Physical Exam Vitals/I&O's: Body Mass Index (BMI) 44.6 Finger Stick Blood Glucose 166 General: Alert, Oriented x3, Cooperative HEENT: Atraumatic, PERRLA, EOMI, Normocephalic Neck: Supple, No JVD, Negative Carotid Bruits Lungs: Clear to auscultation, Normal air movement Cardiovascular: Regular rate, No murmurs Abdomen: Bowel Sounds Present, Soft, Non Tender Extremities: No edema, Capillary Refill Less than 3 Seconds, - - Left below knee amputation, CHUCK wrap, wound vac, drain. Skin: No rashes, No breakdown Musculoskeletal: No Tenderness to Palpation of Joints or Extremities Neurological: Cranial nerves II-XII grossly intact Psych/Mental Status: Normal Affect, Appropriate Current Medications Amlodipine Besylate (Norvasc) 10 mg PO DAILY [facility] Hydralazine HCl (Apresoline) 50 mg PO BID [facility] Insulin Human Lispro (Humalog Kwikpen (Bkc)) 30 unit SC TIDCM JIM Insulin Human NPH (Humulin N (Bkc)) 40 units SC QHS JIM Lactobacillus Acidophilus (Acidophilus) 1 tablet PO BID JIM Metoprolol Succinate (Toprol Xl (Beta Marshall)) 50 mg PO DAILY [facility]IM Tuberculin PPD (Tubersol, Aplisol, Ppd) 5 tu ID X1 ONE Stop: 07/21/19 10:01 Tuberculin PPD (Tubersol, Aplisol, Ppd) 5 tu ID X1 ONE Stop: 07/28/19 10:01 Assessment/Plan All Active Problems Debility (Acute) Acute on chronic kidney failure (Acute) MRSA (methicillin resistant Staphylococcus aureus) (Acute) Diabetic foot infection (Acute) 64 year old male with below past medical history hospitalized for acute on chronic kidney failure, complicated by left foot osteomyelitis requiring left below the knee amputation 07/15/[address] Pompa, admitted to TCU with debility, here for rehabilitation, strengthening, prior to discharge home alone. * Debility - PT/OT. * Pain - Tylenol 1000MG Q6H PRN pain (1-3), Oxycodone 5MG Q4H PRN pain (4-10). * Bowel - Miralax 17GM daily, Senna/colace 1 tablet BID, Dulcolax 10MG daily PRN. * Adult immunization - Administer Pneumovax 23, Fluzone as appropriate. * DVT prophylaxis - Hold, due to renal insufficiency. * Hypertension - Metoprolol succinate 50MG daily, Hydralazine 50MG BID, Amlodipine 10MG daily. * Diabetes Mellitus II - NPH 40 units QHS, Humalog 30 units TID. * GI prophylaxis - Lactobacillus 1 tablet BID. * Iron deficiency anemia - Ferrex 150MG daily.
[2019-07-20 23:50] VITALS: PULSE 82; RESP 16; O2SAT 94
[2019-07-21] MEDS: Insulin NPH Human 100 UNITS/ML PEN 40 UNITS SC (00:14)
[2019-07-21 05:56] LABS: Absolute Lymphocyte Count 1.01 X10^3/uL (0.83-4.51); Absolute Neutrophil Count 4.2 X10^3/uL (2.0-7.7); Basophil# 0.03 X10^3/uL; Basophil% 0.5 % (0-1); Eosinophil# 0.25 X10^3/uL; Hematocrit 25.7 % (40-54); Hemoglobin 7.9 g/dL (13.0-16.5); Lymphocyte # 1.01 X10^3/ul (4.0); Lymphocyte % 16.2 % (19-41); Mean Corp Hgb Conc 30.7 g/dL (32-36); Mean Corpuscular Hgb 26.5 pg (27.0-32.0); Mean Corpuscular Volume 86.2 fL (80-94); Mean Platelet Vol. 10.4 fl (6.2-12.0); Monocyte# 0.75 X10^3/uL; NRBC Flagged by Analyzer 0 % (0-5); Neutrophil # 4.19 X10^3/uL (2.7-7.7); Platelet Count 178 K/mm3 (150-450); RBC Distribution Width CV 17.2 % (11.6-14.6); RBC Distribution Width SD 53.2 fl (35.1-43.9); Red Blood Count 2.98 M/mm3 (4.6-6.2); White Blood Count 6.3 K/mm3 (4.4-11.0)
[2019-07-21] MEDS: Senna/Docusate Sodium 1 Tablet PO ×2 (05:59→17:52)
[2019-07-21] MEDS: amLODIPine 10 MG Tablet PO (05:59)
[2019-07-21] MEDS: Polyethylene Glycol 3350 17 GM PACKET PO (05:59)
[2019-07-21 06:06] VITALS: BP 147/54; PULSE 72
[2019-07-21] MEDS: hydrALAZINE 50 MG Tablet PO ×2 (06:06→17:52)
[2019-07-21 06:07] VITALS: BP 147/54; PULSE 72
[2019-07-21] MEDS: oxyCODONE 5 MG Tablet PO (06:07)
[2019-07-21] MEDS: Nystatin Powder 15gm Bottle 1 APPLIC TOPICAL ×2 (06:07→17:53)
[2019-07-21] MEDS: Metoprolol(XL)Succ 50 MG Tablet PO (06:07)
[2019-07-21] MEDS: Menthol/Lanolin/Calamine/Znox 113 GM Tube 1 APPLIC TOPICAL ×2 (06:07→17:53)
[2019-07-21] MEDS: Bisacodyl 5 MG Tablet 10 MG PO (06:08)
[2019-07-21 06:15] LABS: Anion Gap 7 (5-15); BUN 92 mg/dL (7-18); BUN/Creat Ratio 20.2 RATIO (10-20); Calcium,Total 8.1 mg/dL (8.5-10.1); Chloride 110 mmol/L (98-107); Creatinine, Serum 4.55 mg/dL (0.70-1.30); EST Glomerular Filtration Rate 14 mL/min (>60); Est Glom Filt Rate - Afr Amer 17 mL/min (>60); Estimated Creatinine Clearance 20.67 ml/min; Glucose 153 mg/dL (74-106); Potassium 4.3 mmol/L (3.5-5.1); Sodium Level 140 mmol/L (136-145)
[2019-07-21 06:21] LABS: Bedside Glucose 145 mg/dL (70-110)
[2019-07-21 08:36] LABS: Bedside Glucose 154 mg/dL (70-110)
[2019-07-21 10:00] VITALS: PULSE 76; RESP 18; O2SAT 91
--- NOTE | 2019-07-21 10:19 | PHA.CONS_ITS ---
<Carlos Kennedy - Last Filed: 07/21/19 11:15> Progress Note - Pharmacy Subjective: [] Objective: Allergies ciprofloxacin [From Cipro] Allergy (Verified 06/29/19 11:34) Rash he has tolerated oral cipro in the past levofloxacin [From Levaquin] Allergy (Verified 06/29/19 11:34) Hives morphine Allergy (Verified 07/14/19 20:42) Hives Penicillins Allergy (Verified 06/29/19 11:34) Hives silver Allergy (Verified 06/29/19 11:34) Rash Skin márquez and itches, rash Current Medications Generic Name Dose Route Start Last Admin Trade Name Freq PRN Reason Stop Dose Admin Acetaminophen 1,000 mg 07/20/19 21:48 Tylenol PO Q6H PRN PRN Pain Score 1-3/10 Amlodipine Besylate 10 mg 07/21/19 06:00 07/21/19 05:59 Norvasc PO 10 mg DAILY JIM Administration Bisacodyl 10 mg 07/20/19 21:49 07/21/19 06:08 Dulcolax PO 10 mg DAILY PRN PRN Administration Constipation Calamine/Phenol 1 applic 07/21/19 06:00 07/21/19 06:07 Calmoseptine Ointment TOPICAL 1 applicatio BID [facility] Administration Protocol Hydralazine HCl 50 mg 07/21/19 06:00 07/21/19 06:06 Apresoline PO 50 mg BID JIM Administration Insulin Human Lispro 30 unit 07/21/19 07:45 07/21/19 08:49 Humalog Kwikpen ([facility]) SC Not Given TIDCM [facility] Insulin Human NPH 40 units 07/20/19 22:00 07/21/19 00:14 Humulin N ([facility]) SC 40 u QHS JIM Administration Lactobacillus Acidophilus 1 tablet 07/21/19 06:00 07/21/19 05:59 Acidophilus PO 1 tablet BID JIM Administration Metoprolol Succinate 50 mg 07/21/19 06:00 07/21/19 06:07 Toprol Xl (Beta Marshall) PO 50 mg DAILY JIM Administration Nystatin 1 applic 07/21/19 06:00 07/21/19 06:07 Mycostatin Powder TOPICAL 1 applicatio BID [facility] Administration Protocol Oxycodone HCl 5 mg 07/20/19 21:49 07/21/19 06:07 Oxyir PO 5 mg Q4H PRN PRN Administration Pain Score 4-10/10 Polyethylene Glycol 17 gm 07/21/19 06:00 07/21/19 05:59 Miralax PO 17 gm DAILY JIM Administration Polysaccharide Iron Complex 150 mg 07/21/19 09:00 [facility] Senna/Docusate Sodium 1 tablet 07/21/19 06:00 07/21/19 05:59 Senokot-S, Susy-Colace PO 1 tablet BID JIM Administration Tuberculin PPD 5 tu 07/28/19 10:00 Tubersol, Aplisol, Ppd ID 07/28/19 10:01 X1 ONE Problem List Debility (Acute) Acute on chronic kidney failure (Acute) Osteomyelitis of left foot (Chronic) Diabetes mellitus (Chronic) Body mass index (BMI) 50.0-59.9, adult (Chronic) Hypertension (Chronic) Hyperlipidemia (Chronic) Chronic kidney disease (Chronic) Vital Signs Temp Pulse Resp BP Pulse Ox 98.5 F 72 16 147/54 H 94 07/20/19 18:38 07/21/19 06:07 07/20/19 23:50 07/21/19 06:07 07/20/19 23:50 Oxygen Delivery Method Room Air Weight: 189.297 kg Body Mass Index (BMI) 49.4 Finger Stick Blood Glucose 166 Assessment/Plan: 1) Pain: Acetaminophen 1000mg po q6h prn for pain 1-3/10, Oxycodone 5mg po q4h prn for pain 4-10/10. Please continue to monitor prn usage and for signs/symptoms of increased/decreased pain. 2) Gi Prophylaxis: Acidophilus 1 tablet po bid. Please continue to monitor for signs/symptoms of constipation/diarrhea 3) Iron Deficiency Anemia: Ferrex 150mg po daily. Please continue to monitor lab work. 4) Hypertension: Amlodipine 10mg po daily, Hydralazine 50mg po bid, Metoprolol Succinate 50mg po daily. Pt's average pulse rate is 76.8bpm. Please continue to monitor. Pt's average bp is 148/61. Please continue to monitor. 5) Diabetes: Humalog 30 units subq tid with meals, and Humulin NPH 40 units subq at bedtime. Please continue to monitor blood glucose levels. Pt did refuse 07/21/2019 dose of Humalog. His bs was 145, and according to dietary report, pt ate ~50% of meal. Psychotropic Medications: none Unnecessary Medications: none Bowel Regimen: Bisacodyl 10mg po daily prn for constipation, Miralax 17gm po daily, Senna/Docusate 1 tablet po bid. Please continue to monitor prn usage and for signs/symptoms of constipation/diarrhea. Date of Note:: 07/21/19 - Provider Comments Provider responsibility: Provider responsible to enter orders to implement recommendations <Oziel Shelley Chi - Last Filed: 07/21/19 17:30> Progress Note - Pharmacy Subjective: [] Objective: Allergies ciprofloxacin [From Cipro] Allergy (Verified 06/29/19 11:34) Rash he has tolerated oral cipro in the past levofloxacin [From Levaquin] Allergy (Verified 06/29/19 11:34) Hives morphine Allergy (Verified 07/14/19 20:42) Hives Penicillins Allergy (Verified 06/29/19 11:34) Hives silver Allergy (Verified 06/29/19 11:34) Rash Skin márquez and itches, rash Current Medications Generic Name Dose Route Start Last Admin Trade Name Freq PRN Reason Stop Dose Admin Acetaminophen 1,000 mg 07/20/19 21:48 Tylenol PO Q6H PRN PRN Pain Score 1-3/10 Amlodipine Besylate 10 mg 07/21/19 06:00 07/21/19 05:59 Norvasc PO 10 mg DAILY JIM Administration Bisacodyl 10 mg 07/20/19 21:49 07/21/19 06:08 Dulcolax PO 10 mg DAILY PRN PRN Administration Constipation Calamine/Phenol 1 applic 07/21/19 06:00 07/21/19 06:07 Calmoseptine Ointment TOPICAL 1 applicatio BID JIM Administration Protocol Hydralazine HCl 50 mg 07/21/19 06:00 07/21/19 06:06 Apresoline PO 50 mg BID JIM Administration Insulin Human Lispro 30 unit 07/21/19 07:45 07/21/19 13:48 Humalog Kwikpen ([facility]) SC Not Given TIDCM [facility] Insulin Human NPH 40 units 07/20/19 22:00 07/21/19 00:14 Humulin N (Bk) SC 40 u QHS JIM Administration Lactobacillus Acidophilus 1 tablet 07/21/19 06:00 07/21/19 05:59 Acidophilus PO 1 tablet BID JIM Administration Metoprolol Succinate 50 mg 07/21/19 06:00 07/21/19 06:07 Toprol Xl (Beta Marshall) PO 50 mg DAILY JIM Administration Nutritional Formula 1 packet 07/21/19 17:00 Vu - Waller Flavor PO BIDCM [facility] Nystatin 1 applic 07/21/19 06:00 07/21/19 06:07 Mycostatin Powder TOPICAL 1 applicatio BID [facility] Administration Protocol Oxycodone HCl 5 mg 07/20/19 21:49 07/21/19 06:07 Oxyir PO 5 mg Q4H PRN PRN Administration Pain Score 4-10/10 Polyethylene Glycol 17 gm 07/21/19 06:00 07/21/19 05:59 Miralax PO 17 gm DAILY JIM Administration Polysaccharide Iron Complex 150 mg 07/21/19 09:00 07/21/19 10:54 Ferrex 150 PO 150 mg DAILYCM [facility] Administration Senna/Docusate Sodium 1 tablet 07/21/19 06:00 07/21/19 05:59 Senokot-S, Susy-Colace PO 1 tablet BID JIM Administration Tuberculin PPD 5 tu 07/28/19 10:00 Tubersol, Aplisol, Ppd ID 07/28/19 10:01 X1 ONE Problem List Debility (Acute) Acute on chronic kidney failure (Acute) Osteomyelitis of left foot (Chronic) Diabetes mellitus (Chronic) Body mass index (BMI) 50.0-59.9, adult (Chronic) Hypertension (Chronic) Hyperlipidemia (Chronic) Chronic kidney disease (Chronic) Vital Signs Temp Pulse Resp BP Pulse Ox 98.6 F 72 16 138/59 H 93 07/21/19 15:04 07/21/19 15:04 07/21/19 15:04 07/21/19 15:04 07/21/19 15:04 Oxygen Delivery Method Room Air Weight: 189.297 kg Body Mass Index (BMI) 49.4 Finger Stick Blood Glucose 166 Sodium 142 mmol/L (136-145) 07/21/19 09:55 Potassium 4.3 mmol/L (3.5-5.1) 07/21/19 09:55 Chloride 112 mmol/L (98-107) H 07/21/19 09:55 Carbon Dioxide 23.0 mmol/L (21.0-32.0) 07/21/19 09:55 Anion Gap 7 (5-15) 07/21/19 09:55 BUN 86 mg/dL (7-18) H 07/21/19 09:55 Creatinine 4.59 mg/dL (0.70-1.30) H 07/21/19 09:55 Est GFR (MDRD) Af Amer 17 mL/min (>60) L 07/21/19 09:55 Est GFR (MDRD) Non-Af 14 mL/min (>60) L 07/21/19 09:55 BUN/Creatinine Ratio 18.7 RATIO (10-20) 07/21/19 09:55 Glucose 157 mg/dL (74-106) H 07/21/19 09:55 Assessment/Plan: Psychotropic Medications: Unnecessary Medications: Bowel Regimen: - Provider Comments Provider responsibility: Provider responsible to enter orders to implement recommendations Provider Comments to Recommendations by Pharmacy: Agree
[2019-07-21 10:34] LABS: Anion Gap 7 (5-15); BUN 86 mg/dL (7-18); BUN/Creat Ratio 18.7 RATIO (10-20); Calcium,Total 8.6 mg/dL (8.5-10.1); Chloride 112 mmol/L (98-107); Creatinine, Serum 4.59 mg/dL (0.70-1.30); EST Glomerular Filtration Rate 14 mL/min (>60); Est Glom Filt Rate - Afr Amer 17 mL/min (>60); Estimated Creatinine Clearance 20.49 ml/min; Glucose 157 mg/dL (74-106); Potassium 4.3 mmol/L (3.5-5.1); Sodium Level 142 mmol/L (136-145)
[2019-07-21] MEDS: Iron Polysaccharide Complex 150 MG CAPSULE PO (10:54)
[2019-07-21] MEDS: Tuberculin,Purif.prot.deriv. 50 TU/ML Vial 5 ML ID (10:54)
[2019-07-21 11:55] LABS: Bedside Glucose 142 mg/dL (70-110)
--- NOTE | 2019-07-21 12:21 | NURSING ---
Addendum entered by Yanira Acevedo 07/21/19 15:36: Rosalie to send bed. Original Note: Both JANA Boland and this RN attempted to call [facility] to order [facility] bed and were unable to connect with them at this time. We will try and attempt to connect again at a later time.
--- NOTE | 2019-07-21 13:49 | NURSING ---
Pt given soap suds enema per order, was able to take all fluids and held in most of the fluid. Small hard BM noted.
[2019-07-21 15:04] VITALS: BP 138/59; PULSE 72; RESP 16; TEMP 37; O2SAT 93
--- NOTE | 2019-07-21 15:25 | CASEMGMT ---
Social Work Discussed code status. Pt confirmed full code. MOLST form completed and placed in chart. Tiesha Cummins, RN RENAL PRODUCT DEVELOPMENT CONSULTANT
[2019-07-21 16:21] LABS: Bedside Glucose 143 mg/dL (70-110)
[2019-07-21] MEDS: Electrolyte Solution/Peg's 4000 ML 1000 ML PO (16:36)
[2019-07-21 17:52] VITALS: PULSE 72
[2019-07-21 21:16] LABS: Bedside Glucose 134 mg/dL (70-110)
[2019-07-22 06:02] LABS: Anion Gap 9 (5-15); BUN 89 mg/dL (7-18); BUN/Creat Ratio 21.2 RATIO (10-20); Calcium,Total 8.5 mg/dL (8.5-10.1); Chloride 112 mmol/L (98-107); EST Glomerular Filtration Rate 15 mL/min (>60); Est Glom Filt Rate - Afr Amer 19 mL/min (>60); Estimated Creatinine Clearance 22.39 ml/min; Glucose 135 mg/dL (74-106); Potassium 4.3 mmol/L (3.5-5.1); Sodium Level 143 mmol/L (136-145)
[2019-07-22 06:26] LABS: Bedside Glucose 129 mg/dL (70-110)
[2019-07-22] MEDS: Bisacodyl 5 MG Tablet 10 MG PO (06:56)
[2019-07-22] MEDS: amLODIPine 10 MG Tablet PO (06:57)
[2019-07-22] MEDS: Senna/Docusate Sodium 1 Tablet PO ×2 (06:57→17:34)
[2019-07-22 06:58] VITALS: BP 164/68; PULSE 78
[2019-07-22] MEDS: Menthol/Lanolin/Calamine/Znox 113 GM Tube 1 APPLIC TOPICAL (06:58)
[2019-07-22] MEDS: hydrALAZINE 50 MG Tablet PO ×2 (06:58→17:34)
[2019-07-22 06:59] VITALS: BP 164/68; PULSE 78
[2019-07-22] MEDS: Metoprolol(XL)Succ 50 MG Tablet PO (06:59)
[2019-07-22] MEDS: Nystatin Powder 15gm Bottle 1 APPLIC TOPICAL (07:18)
[2019-07-22] MEDS: Iron Polysaccharide Complex 150 MG CAPSULE PO (08:30)
--- NOTE | 2019-07-22 08:38 | NURSING ---
PT REFUSED BREAKFAST AND LACTULOSE. INSULIN NOT GIVEN. REPORTED TO RN.
[2019-07-22 11:11] LABS: Bedside Glucose 171 mg/dL (70-110)
--- NOTE | 2019-07-22 11:45 | NURSING ---
PT REFUSED TO EA RN AWARET LUNCH. HELD INSULIN. PT ALSO STATED I JUST DONT FEEL GOOD. PT REFUSES TO DRINK AND THIS NURSE EDUCATED PT ON NOT EATING AND DRINKING. PT STATED I DONT WANT NO THERAPY TODAY AND I WANT TO GET UP WITH THE HUE TO SIT ON THE BED SIDE COMMODE. THIS NURSE WILL CHECK WITH THEARPY TO SEE IF THERE IS A WAY TO GET HIM UP ON BED SIDE. RN AWARE.
--- NOTE | 2019-07-22 12:04 | NURSING ---
wound photo: right heel
--- NOTE | 2019-07-22 12:05 | NURSING ---
wound photo: left BKA
--- NOTE | 2019-07-22 12:57 | PCA ---
Pt has refused breakfast, refused lunch; pt is very angry with not being able to have a bowel movement and states that he does not like our food here at hospital. I tried offering pt multiple options as for as food vanessa goes and he did not want anything offered, ate cheerios and milk that was in room
--- NOTE | 2019-07-22 15:47 | RAD_ITS ---
STUDY: X-RAY - ABDOMEN/PELVIS REASON FOR EXAM: Male, 64 years old. CONSTIPATION TECHNIQUE: Single AP view of the abdomen / pelvis. COMPARISON: None. FINDINGS: Normal visualized lung bases. There is an unremarkable bowel gas pattern. There is no demonstrated free abdominal air. The visualized liver, spleen and kidneys are grossly normal in size and morphology. Normal soft tissue structures. Normal visualized osseous structures. RAD/Abdomen Single View IMPRESSION: Normal x-ray examination of the abdomen and pelvis. Electronically Signed: Dennis Winkler MD at 16:28 EDT , Service support ,
--- NOTE | 2019-07-22 15:59 | NURSING ---
pt off unit to xray via bed w/mask
[2019-07-22] MEDS: Electrolyte Solution/Peg's 4000 ML PO (16:15)
[2019-07-22 16:50] LABS: Bedside Glucose 198 mg/dL (70-110)
[2019-07-22 17:25] VITALS: BP 174/60; PULSE 85; RESP 18; TEMP 37.1; O2SAT 93
[2019-07-22 17:34] VITALS: BP 174/60; PULSE 85
--- NOTE | 2019-07-22 17:57 | NURSING ---
PT REFUSED SUPPER AND TO LET THIS NURSE PUT CALMOSEPTINE AND POWER ON. HELD INSULIN. REPORTED TO RN.
--- NOTE | 2019-07-22 18:12 | NURSING ---
this nurse came into pt room and pt stated, I wish some one will give me a gun to just shot my self. asked pt if i could help him with some thing. pt stated his stomach hurts. pt has been drinking ascencion. rn aware.
[2019-07-22] MEDS: oxyCODONE 5 MG Tablet PO (20:32)
[2019-07-22 20:33] VITALS: O2SAT 93
[2019-07-22 21:20] LABS: Bedside Glucose 211 mg/dL (70-110)
--- NOTE | 2019-07-22 21:39 | NURSING ---
Dr. Shelley aware of patient continued complaints of abdominal pain, and that patient has talked to staff about hurting himself. New orders given for Lactulose Rectal enema x 1 and to consult social work about patient having suicidal ideation.
[2019-07-22] MEDS: Insulin NPH Human 100 UNITS/ML PEN 40 UNITS SC (22:04)
[2019-07-22] MEDS: Lactulose 20 GM/30 ML UDC 200 GM RECTAL (22:51)
--- NOTE | 2019-07-23 03:09 | NURSING ---
Addendum entered by Alessia De La Cruz 07/23/19 03:25: Lactulose enema given. Patient tolerated well. Abdomen less painful. Positive results. Sitter in room 1:1 with patient. Patient sleeping most of time. Original Note: 20:30 hours-Patient refusing all HS care. Patient requested PRN Pain medication for abdomen pain, but refused all other medications. 21:17 hours-Marleny patient's niece called wanting to know what the next step was going to be. Patient had called her complaining that his abdomen pain was severe because he has not had a bowel movement. Updated Niece on all new orders and X-ray results. Marleny requested for Dr. Shelley to be called and to find out next step. Advised Marleny I would notify my RN on floor. 21:20-Melani RN notified. 21:30-went into patient's room. Patient stated, I just want to . I just want to be done. 21:31 hours-Melani BATES notified of patient being suicidal. 21:35 hours: Multi Operation Machine Operator, Tia notified. Sitter being called in for 1:1. Suicidal precautions initiated at this time. Patient informed on protocol for situation. This Nurse stayed 1:1 with patient. Patient upset and agitated that staff could not get him out of bed or let patient sit on side of bed. Patient educated on risk of injuries and/or falling. Patient yelling out, just get me my walking papers. Advised patient I was unable to do that at this time. Updated patient on new orders. Patient started to calm down. Explained to patient I was here to help him. 22:20 hours-1:1 continues. Kya (sitter) arrived.
[2019-07-23 05:51] VITALS: BP 154/75; PULSE 77
[2019-07-23] MEDS: amLODIPine 10 MG Tablet PO (05:51)
[2019-07-23] MEDS: Metoprolol(XL)Succ 50 MG Tablet PO (05:51)
[2019-07-23] MEDS: hydrALAZINE 50 MG Tablet PO ×2 (05:51→17:25)
[2019-07-23] MEDS: Senna/Docusate Sodium 1 Tablet PO ×2 (05:51→17:26)
[2019-07-23] MEDS: Menthol/Lanolin/Calamine/Znox 113 GM Tube 1 APPLIC TOPICAL (05:52)
[2019-07-23] MEDS: Nystatin Powder 15gm Bottle 1 APPLIC TOPICAL (05:53)
[2019-07-23 06:17] LABS: Hematocrit 28.4 % (40-54); Hemoglobin 8.9 g/dL (13.0-16.5)
[2019-07-23 06:30] LABS: Bedside Glucose 168 mg/dL (70-110)
[2019-07-23 06:40] LABS: Anion Gap 8 (5-15); BUN 90 mg/dL (7-18); BUN/Creat Ratio 22.6 RATIO (10-20); Calcium,Total 8.7 mg/dL (8.5-10.1); Chloride 110 mmol/L (98-107); Creatinine, Serum 3.99 mg/dL (0.70-1.30); EST Glomerular Filtration Rate 16 mL/min (>60); Est Glom Filt Rate - Afr Amer 20 mL/min (>60); Estimated Creatinine Clearance 23.57 ml/min; Glucose 176 mg/dL (74-106); Sodium Level 141 mmol/L (136-145)
[2019-07-23] MEDS: Insulin Lispro 100 UNIT/ML INSULN.PEN 30 UNIT SC ×2 (08:15→17:24)
[2019-07-23] MEDS: Iron Polysaccharide Complex 150 MG CAPSULE PO (08:16)
--- NOTE | 2019-07-23 08:46 | NURSING ---
Pt in bed with sitter Fernando) in bedside chair. Pt stated he was feeling ok. Pt took medications and was pleasant.
[2019-07-23 10:00] VITALS: PULSE 76; RESP 18; O2SAT 94
[2019-07-23 11:21] LABS: Bedside Glucose 128 mg/dL (70-110)
--- NOTE | 2019-07-23 11:38 | NURSING ---
Pt refused all care at this time. Pt refused to let this nurse perform an assessment. Pt refused to allow this nurse to change him after he stated he had soiled his brief with stool. This nurse contacted disaster or damage control specialist social work to inform them he needs a consult. Social work stated they would call crisis and inform them that he needs to talk to someone.
--- NOTE | 2019-07-23 12:51 | NURSING ---
Called patients sister to update her and inform her that he is refusing all care at this point. Patients sister stated that this i a reoccurring thing because it is the only thing he has control of. She states he has told people he was going to kill him self or hurt him self numerous times over the past 30+ years and she feels this is him trying to be in control of his current situation. This nurse reassured sister that I will continue to try and get him to comply with care and continue to inform her if he continues to refuse care.
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
[2019-07-23 15:24] VITALS: BP 148/60; PULSE 76; RESP 18; TEMP 37.4; O2SAT 94
[2019-07-23 16:30] LABS: Bedside Glucose 163 mg/dL (70-110)
[2019-07-23 17:25] VITALS: BP 124/77; PULSE 93
[2019-07-23 21:11] LABS: Bedside Glucose 99 mg/dL (70-110)
--- NOTE | 2019-07-23 21:14 | PCA ---
CONTRACTING EXECUTIVE offered HS care at 7:00 pm and patient stated they would rather not get washed up tonight. Lena CONTRACTING EXECUTIVE also offered HS care later in the shift, and he refused her as well. Nurse aware.
--- NOTE | 2019-07-23 22:53 | NURSING ---
Addendum entered by Delma Zuniga 07/23/19 22:57: Pt also complains of not feeling well states, he has had 4 L of golytlye for bowel movement. The patient was given lactulose enema x1 on 07/21 pt has had two large bowel movements on 07/22 soft, and formed per report not seen. Bowel sounds active in all four quadrants. Lower quadrants area hard, and tender. Rn made aware. Original Note: Patient hs blood sugar 99 refused insulin. Rn made aware.
--- NOTE | 2019-07-24 01:23 | PCA ---
SAFETY AND SKILL BASED PAY MANAGER went in with Lena to turn and reposition patient on rounds. Patient refused SAFETY AND SKILL BASED PAY MANAGER help to get turned and washed up, stating i am in no mood to get cleaned up told patient to ring for help if he needed anything. call light within reach. Nurse aware
--- NOTE | 2019-07-24 03:46 | NURSING ---
Pt continues to refuse changing d/t being incont of bowel and urine. This nurse explained to patient the importance of allowing us to turn and clean him up. Pt allowed us to get him cleaned of incont of bowel and urine during this time. Pt stated, I don't need anything else. Call light within reach.
[2019-07-24 05:34] VITALS: BP 151/69; PULSE 80
[2019-07-24] MEDS: Senna/Docusate Sodium 1 Tablet PO ×2 (05:34→17:52)
[2019-07-24] MEDS: Metoprolol(XL)Succ 50 MG Tablet PO (05:34)
[2019-07-24] MEDS: amLODIPine 10 MG Tablet PO (05:34)
[2019-07-24] MEDS: hydrALAZINE 50 MG Tablet PO ×2 (05:34→17:52)
[2019-07-24 06:21] LABS: Bedside Glucose 152 mg/dL (70-110)
[2019-07-24] MEDS: Iron Polysaccharide Complex 150 MG CAPSULE PO (08:04)
[2019-07-24] MEDS: Insulin Lispro 100 UNIT/ML INSULN.PEN 30 UNIT SC ×2 (08:04→11:53)
[2019-07-24 10:50] LABS: Anion Gap 8 (5-15); BUN 94 mg/dL (7-18); BUN/Creat Ratio 22.4 RATIO (10-20); Calcium,Total 8.9 mg/dL (8.5-10.1); Chloride 112 mmol/L (98-107); Creatinine, Serum 4.19 mg/dL (0.70-1.30); EST Glomerular Filtration Rate 15 mL/min (>60); Est Glom Filt Rate - Afr Amer 19 mL/min (>60); Estimated Creatinine Clearance 22.45 ml/min; Glucose 156 mg/dL (74-106); Potassium 3.9 mmol/L (3.5-5.1); Sodium Level 144 mmol/L (136-145)
[2019-07-24 11:15] LABS: Bedside Glucose 123 mg/dL (70-110)
[2019-07-24] MEDS: Acetaminophen 500 MG Tablet 1000 MG PO ×2 (11:42→21:36)
[2019-07-24 16:00] VITALS: BP 144/58; PULSE 74; RESP 18; TEMP 36.6; O2SAT 96
[2019-07-24 16:30] LABS: Bedside Glucose 81 mg/dL (70-110)
[2019-07-24 17:52] VITALS: BP 144/78; PULSE 76
[2019-07-24] MEDS: Menthol/Lanolin/Calamine/Znox 113 GM Tube 1 APPLIC TOPICAL (18:18)
[2019-07-24] MEDS: Nystatin Powder 15gm Bottle 1 APPLIC TOPICAL (18:19)
[2019-07-24 20:35] VITALS: PULSE 70; RESP 18; O2SAT 97
[2019-07-24 22:21] LABS: Bedside Glucose 154 mg/dL (70-110)
[2019-07-25 05:44] VITALS: BP 151/65; PULSE 67
[2019-07-25] MEDS: hydrALAZINE 50 MG Tablet PO ×2 (05:44→17:24)
[2019-07-25] MEDS: Senna/Docusate Sodium 1 Tablet 2 TABLET PO (05:45)
[2019-07-25] MEDS: amLODIPine 10 MG Tablet PO (05:45)
[2019-07-25 05:46] VITALS: BP 151/65; PULSE 67
[2019-07-25] MEDS: Metoprolol(XL)Succ 50 MG Tablet PO (05:46)
[2019-07-25] MEDS: Menthol/Lanolin/Calamine/Znox 113 GM Tube 1 APPLIC TOPICAL ×2 (05:52→17:26)
[2019-07-25] MEDS: Nystatin Powder 15gm Bottle 1 APPLIC TOPICAL ×2 (05:53→17:26)
[2019-07-25 05:58] LABS: Anion Gap 7 (5-15); BUN 102 mg/dL (7-18); BUN/Creat Ratio 25.1 RATIO (10-20); Calcium,Total 9.3 mg/dL (8.5-10.1); Chloride 109 mmol/L (98-107); Creatinine, Serum 4.06 mg/dL (0.70-1.30); EST Glomerular Filtration Rate 16 mL/min (>60); Est Glom Filt Rate - Afr Amer 19 mL/min (>60); Estimated Creatinine Clearance 23.17 ml/min; Glucose 127 mg/dL (74-106); Potassium 4.1 mmol/L (3.5-5.1); Sodium Level 140 mmol/L (136-145)
[2019-07-25 06:16] LABS: Bedside Glucose 124 mg/dL (70-110)
[2019-07-25] MEDS: Iron Polysaccharide Complex 150 MG CAPSULE PO (08:47)
[2019-07-25 11:30] LABS: Bedside Glucose 183 mg/dL (70-110)
--- NOTE | 2019-07-25 11:35 | NURSING ---
PT IS STARTING TO EAT A LITTLE BUT HAS REFUSED HIS MORNING AND LUNCH INSULIN. RN AWARE.
[2019-07-25 11:45] VITALS: PULSE 70; RESP 18; O2SAT 95
[2019-07-25 14:29] VITALS: BP 158/55; PULSE 68; RESP 20; TEMP 36.6; O2SAT 93
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
--- NOTE | 2019-07-25 15:44 | CASEMGMT ---
Social Work Attempted to visit pt several times but unavailable. Will continue to attempt. Tiesha Cummins, HOG DRIVER MATERIAL CONTROL MANAGER
[2019-07-25 16:41] LABS: Bedside Glucose 195 mg/dL (70-110)
[2019-07-25 17:24] VITALS: PULSE 66
[2019-07-25] MEDS: Insulin Lispro 100 UNIT/ML INSULN.PEN 30 UNIT SC (18:08)
--- NOTE | 2019-07-25 19:30 | NURSING ---
WOUND VAC CHANGED BY THIS NURSE. RN AWARE
--- NOTE | 2019-07-25 19:44 | NURSING ---
PT REFUSED TO DO ANY MOUTH CARE TODAY. RN AWARE.
[2019-07-25 21:45] LABS: Bedside Glucose 110 mg/dL (70-110)
[2019-07-26 03:30] VITALS: BP 161/72; PULSE 70; RESP 18; TEMP 36.6; O2SAT 95
[2019-07-26 05:37] VITALS: BP 161/72; PULSE 70
[2019-07-26] MEDS: amLODIPine 10 MG Tablet PO (05:37)
[2019-07-26] MEDS: hydrALAZINE 50 MG Tablet PO ×2 (05:37→18:01)
[2019-07-26] MEDS: Senna/Docusate Sodium 1 Tablet 2 TABLET PO ×2 (05:37→18:02)
[2019-07-26] MEDS: Acetaminophen 500 MG Tablet 1000 MG PO (05:38)
[2019-07-26] MEDS: Menthol/Lanolin/Calamine/Znox 113 GM Tube 1 APPLIC TOPICAL (05:39)
[2019-07-26] MEDS: Nystatin Powder 15gm Bottle 1 APPLIC TOPICAL (05:39)
[2019-07-26 05:40] VITALS: BP 161/72; PULSE 70
[2019-07-26] MEDS: Polyethylene Glycol 3350 17 GM PACKET PO (05:40)
[2019-07-26] MEDS: Metoprolol(XL)Succ 50 MG Tablet PO (05:40)
[2019-07-26 06:31] LABS: Bedside Glucose 174 mg/dL (70-110)
[2019-07-26 06:40] LABS: Anion Gap 8 (5-15); BUN 101 mg/dL (7-18); BUN/Creat Ratio 26.8 RATIO (10-20); Calcium,Total 9.1 mg/dL (8.5-10.1); Chloride 108 mmol/L (98-107); Creatinine, Serum 3.77 mg/dL (0.70-1.30); EST Glomerular Filtration Rate 17 mL/min (>60); Est Glom Filt Rate - Afr Amer 21 mL/min (>60); Estimated Creatinine Clearance 24.95 ml/min; Glucose 146 mg/dL (74-106); Potassium 4.2 mmol/L (3.5-5.1); Sodium Level 140 mmol/L (136-145)
[2019-07-26] MEDS: Iron Polysaccharide Complex 150 MG CAPSULE PO (09:30)
[2019-07-26] MEDS: Insulin Lispro 100 UNIT/ML INSULN.PEN 30 UNIT SC (09:30)
--- NOTE | 2019-07-26 09:37 | NURSING ---
PT ONLY WOULD DRINK OJ FOR BREAKFAST AND REQUESTED ONLY 15 UNITS OF INSULIN. RN AWARE
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
[2019-07-26 11:31] LABS: Bedside Glucose 133 mg/dL (70-110)
--- NOTE | 2019-07-26 11:32 | NURSING ---
PT STATED HE DID NOT WANT ME TO CALL ANY ONE AT THIS TIME TO UPDATE ON HIM.
[2019-07-26 15:55] VITALS: BP 155/72; PULSE 68; RESP 14; TEMP 36.7; O2SAT 97
--- NOTE | 2019-07-26 16:29 | PN.RENAL_ITS ---
Patient Problems: Active and Suspected Problems Debility (Acute) Acute on chronic kidney failure (Acute) Subjective: no new complaints - Physical Exam Vitals/I&O's: Vital Signs Temp Pulse Resp BP Pulse Ox 98.0 F 68 14 155/72 H 97 07/26/19 15:55 07/26/19 15:55 07/26/19 15:55 07/26/19 15:55 07/26/19 15:55 Oxygen Delivery Method Room Air Weight: 189.297 kg Body Mass Index (BMI) 49.4 Finger Stick Blood Glucose 166 Intake and Output for Last 24 Hours 07/24/19 07/25/19 07/26/19 23:59 23:59 23:59 Intake Total 960 / 960 560 / 560 360 / 360 Output Total 250 / 250 510 / 510 210 / 210 Balance 710 / 710 50 / 50 150 / 150 General: Alert, Oriented x3, Cooperative HEENT: Atraumatic, PERRLA, EOMI, Normocephalic Neck: Supple, No JVD, Negative Carotid Bruits Lungs: Clear to auscultation, Normal air movement Cardiovascular: Regular rate, No murmurs Abdomen: Bowel Sounds Present, Soft, Non Tender Extremities: No edema, Capillary Refill Less than 3 Seconds Skin: No rashes, No breakdown Musculoskeletal: No Tenderness to Palpation of Joints or Extremities Neurological: Cranial nerves II-XII grossly intact Psych/Mental Status: Normal Affect, Appropriate Laboratory Results 07/25/19 16:31: POC Glucose 195 H 07/25/19 21:39: POC Glucose 110 07/26/19 04:00: Eos Smear Total Cells Pending 07/26/19 05:11: Sodium 140, Potassium 4.2, Chloride 108 H, Carbon Dioxide 24.0, Anion Gap 8, BUN 101 H*, Creatinine 3.77 H, Estim Creat Clear Calc 24.95, Est GFR (MDRD) Af Amer 21 L, Est GFR (MDRD) Non-Af 17 L, BUN/Creatinine Ratio 26.8 H , Glucose 146 H, Calcium 9.1 07/26/19 05:11: Total Protein (PEP) Pending, IgG Pending, IgA Pending, IgM Pending, Albumin (MILENA) Pending, Albumin/Globulin (MILENA) Pending, [id number] MILENA Pending, [id number] MILENA Pending, Beta-Globulins (MILENA) Pending, Gamma Globulins (MILENA) Pending, MILENA M-Darvin Pending 07/26/19 06:22: POC Glucose 174 H 07/26/19 11:26: POC Glucose 133 H Current Medications Acetaminophen (Tylenol) 1,000 mg PO Q6H PRN PRN PRN Reason: Pain Score 1-3/10 Last Admin: 07/26/19 05:38 Dose: 1,000 mg Documented by: Amlodipine Besylate (Norvasc) 10 mg PO DAILY [facility] Last Admin: 07/26/19 05:37 Dose: 10 mg Documented by: Bisacodyl (Dulcolax) 10 mg PO DAILY PRN PRN PRN Reason: Constipation Last Admin: 07/22/19 06:56 Dose: 10 mg Documented by: Calamine/Phenol (Calmoseptine Ointment) 1 applic TOPICAL BID [facility]; Protocol Last Admin: 07/26/19 05:39 Dose: 1 applicatio Documented by: Dextrose (D50w Syringe) 0 gm IV X1 PRN; Protocol PRN Reason: Hypoglycemia Glucagon () 1 mg IM .X1 PRN PRN Reason: Hypoglycemia Hydralazine HCl (Apresoline) 50 mg PO BID [facility] Last Admin: 07/26/19 05:37 Dose: 50 mg Documented by: Insulin Human Lispro (Humalog Kwikpen (Bk)) 30 unit SC TIDCM [facility] Last Admin: 07/26/19 12:35 Dose: Not Given Documented by: Insulin Human NPH (Humulin N (Bk)) 40 units SC QHS [facility] Last Admin: 07/25/19 22:47 Dose: Not Given Documented by: Lactobacillus Acidophilus (Acidophilus) 1 tablet PO BID [facility] Last Admin: 07/26/19 05:32 Dose: Not Given Documented by: Metoprolol Succinate (Toprol Xl (Beta Marshall)) 50 mg PO DAILY [facility] Last Admin: 07/26/19 05:40 Dose: 50 mg Documented by: Nutritional Formula ([facility] - [place] Flavor) [facility] Last Admin: 07/26/19 09:30 Dose: 1 packet Documented by: Nystatin (Mycostatin Powder) 1 applic TOPICAL BID [facility]; Protocol Last Admin: 07/26/19 05:39 Dose: 1 applicatio Documented by: Oxycodone HCl (Oxyir) 5 mg PO Q4H PRN PRN PRN Reason: Pain Score 4-10/10 Last Admin: 07/22/19 20:32 Dose: 5 mg Documented by: Polyethylene Glycol (Miralax) 17 gm PO DAILY [facility] Last Admin: 07/26/19 05:40 Dose: 17 gm Documented by: Polysaccharide Iron Complex (Ferrex 150) [facility] Last Admin: 07/26/19 09:30 Dose: 150 mg Documented by: Senna/Docusate Sodium (Senokot-S, Susy-Colace) 2 tablet PO BID [facility] Last Admin: 07/26/19 05:37 Dose: 2 tablet Documented by: Tuberculin PPD (Tubersol, Aplisol, Ppd) 5 tu ID X1 ONE Stop: 07/28/19 10:01 Medical Necessity - Tobacco Use Smoking Status: Never smoker Tobacco Use: Non-smoker Assessment/Plan All Active Problems Debility (Acute) Acute on chronic kidney failure (Acute) MRSA (methicillin resistant Staphylococcus aureus) (Acute) Diabetic foot infection (Acute) JOANNA CKD 3 renal US was ok bladder scan negative UA shows some protein few RBC on UA overal cr stable, BUN higher no uremia. will check urine eos and SPEP for now Anemia. due to iron deficiency. on oral iron
[2019-07-26 17:11] LABS: Bedside Glucose 216 mg/dL (70-110)
[2019-07-26 17:30] LABS: Bedside Glucose 209 mg/dL (70-110)
[2019-07-26 18:01] VITALS: BP 155/72; PULSE 68
[2019-07-26 21:11] LABS: Bedside Glucose 206 mg/dL (70-110)
--- NOTE | 2019-07-26 21:35 | NURSING ---
Patient refusing care. This nurse attempted to do daily assessment and he refused. I am not doing this right now. Patient also refused HS insulin. Educated patient the importance of the daily assessments and important medications. Patient said I don't care right now. Will attempt again later. RN aware.
[2019-07-27 04:00] VITALS: PULSE 78; O2SAT 96
[2019-07-27 05:44] VITALS: BP 142/84; PULSE 71
[2019-07-27] MEDS: hydrALAZINE 50 MG Tablet PO ×2 (05:44→17:51)
[2019-07-27 05:45] VITALS: BP 142/84; PULSE 71
[2019-07-27] MEDS: Senna/Docusate Sodium 1 Tablet 2 TABLET PO ×2 (05:45→17:50)
[2019-07-27] MEDS: amLODIPine 10 MG Tablet PO (05:45)
[2019-07-27] MEDS: Metoprolol(XL)Succ 50 MG Tablet PO (05:45)
[2019-07-27] MEDS: Menthol/Lanolin/Calamine/Znox 113 GM Tube 1 APPLIC TOPICAL ×2 (05:46→17:50)
[2019-07-27] MEDS: Nystatin Powder 15gm Bottle 1 APPLIC TOPICAL ×2 (05:46→17:50)
[2019-07-27 06:07] LABS: Anion Gap 8 (5-15); BUN 100 mg/dL (7-18); BUN/Creat Ratio 27.8 RATIO (10-20); Calcium,Total 9.2 mg/dL (8.5-10.1); Chloride 106 mmol/L (98-107); EST Glomerular Filtration Rate 18 mL/min (>60); Est Glom Filt Rate - Afr Amer 22 mL/min (>60); Estimated Creatinine Clearance 26.13 ml/min; Glucose 195 mg/dL (74-106); Potassium 4.5 mmol/L (3.5-5.1); Sodium Level 139 mmol/L (136-145)
[2019-07-27 06:26] LABS: Bedside Glucose 190 mg/dL (70-110)
[2019-07-27] MEDS: Insulin Lispro 100 UNIT/ML INSULN.PEN 30 UNIT SC (08:10)
[2019-07-27] MEDS: Iron Polysaccharide Complex 150 MG CAPSULE PO (08:10)
--- NOTE | 2019-07-27 10:32 | CASEMGMT ---
Social Work IDT met with pt for care plan meeting. Pt stated niece was at work and not to call her. Pt is supervised for bed mobility, sitting to standing is mod x2 assist, darlene for transfers, and practicing motions to potentially begin slideboard transfers, can sit EOB supervised for 30 mins. Pt is mod assist for UE ADLS, dependent for LE ADLS, bed level of toileting. Therapy states pt participates well with therapy and attempts to do as much for himself as possible. Pt has wound vac, heel wound and can come out of room isolation 08/01. Discussed pt refusing care from nursing and meals - pt stated he just jokes around with them, but has begun allowing care and understands the importance of it. Pt is on a cardiac cholesterol and low sodium diet. Pt will continue receiving 1:1 visits from activities. Explained Medicare benefit with 08/08 and goal DC date as pt has Medicaid secondary. IDT recommending continued therapy and nursing care at a SNF but pt adamantly refused to transfer to another SNF - stated he will just go home. Explained the importance of having a clean, safe environment at home. Pt acknowledged his home is messy as he started ripping up carpet, but states he will hire someone to clean it up and bleach the floors prior to DC. Encouraged pt to coordinate that soon because [facility] prior was concerned about cleanliness and safety of home. Pt understood. Will continue to follow. CHRISTIN FritzW
[2019-07-27 11:16] LABS: Bedside Glucose 116 mg/dL (70-110)
--- NOTE | 2019-07-27 12:42 | NURSING ---
Pt refused agustin this afternoon stating he is not eating lunch and doesn't want it
[2019-07-27 13:42] VITALS: BP 161/70; PULSE 66; RESP 17; TEMP 36.9; O2SAT 92
[2019-07-27 16:01] LABS: Eosinophil Ct. Urine No Eosinophils Seen % (.)
[2019-07-27 16:07] LABS: Albumin 2.2 g/dL (2.9-4.4); Alpha-1-Globulins 0.3 g/dL (0.0-0.4); Gamma Globulin 1.8 g/dL (0.4-1.8); Immunoglobulin A 521 mg/dL (61-437); Immunoglobulin G 1711 mg/dL (603-1613); Immunoglobulin M 323 mg/dL (20-172); PROEL- TOTAL PROTEIN 6.2 g/dL (6.0-8.5)
[2019-07-27 17:06] LABS: Bedside Glucose 178 mg/dL (70-110)
[2019-07-27 17:51] VITALS: BP 161/70; PULSE 66
--- NOTE | 2019-07-27 18:33 | PCA ---
went to change pt with mey before dinner around 4:45pm pt refused to be checked and changed, pt stated to me that he did not want to be bothered at all. so other aide and i left room without changing pt
--- NOTE | 2019-07-27 20:12 | NURSING ---
Wound vac changed to LT LE stump. sutures intact. good seal.
[2019-07-27 21:11] LABS: Bedside Glucose 207 mg/dL (70-110)
[2019-07-27] MEDS: Insulin NPH Human 100 UNITS/ML PEN 40 UNITS SC (23:00)
[2019-07-28 02:26] LABS: Bedside Glucose 217 mg/dL (70-110)
[2019-07-28 05:54] VITALS: BP 163/69; PULSE 74; RESP 18; TEMP 37.1; O2SAT 96
[2019-07-28 05:57] VITALS: BP 163/69; PULSE 74
[2019-07-28] MEDS: amLODIPine 10 MG Tablet PO (05:57)
[2019-07-28] MEDS: hydrALAZINE 50 MG Tablet PO ×2 (05:57→18:28)
[2019-07-28 05:58] VITALS: BP 163/69; PULSE 74
[2019-07-28] MEDS: Metoprolol(XL)Succ 50 MG Tablet PO (05:58)
[2019-07-28] MEDS: Nystatin Powder 15gm Bottle 1 APPLIC TOPICAL ×2 (06:00→18:27)
[2019-07-28] MEDS: Menthol/Lanolin/Calamine/Znox 113 GM Tube 1 APPLIC TOPICAL ×2 (06:00→18:26)
[2019-07-28 06:03] LABS: Absolute Lymphocyte Count 1.85 X10^3/uL (0.83-4.51); Absolute Neutrophil Count 6.3 X10^3/uL (2.0-7.7); Basophil# 0.05 X10^3/uL; Basophil% 0.5 % (0-1); Eosinophil# 0.38 X10^3/uL; Hematocrit 32.2 % (40-54); Lymphocyte # 1.85 X10^3/ul (4.0); Lymphocyte % 19.3 % (19-41); Mean Corp Hgb Conc 31.1 g/dL (32-36); Mean Platelet Vol. 10.6 fl (6.2-12.0); Monocyte# 0.93 X10^3/uL; Monocyte% 9.7 % (0-10); NRBC Flagged by Analyzer 0 % (0-5); Neutrophil # 6.32 X10^3/uL (2.7-7.7); Platelet Count 245 K/mm3 (150-450); RBC Distribution Width CV 17.5 % (11.6-14.6); RBC Distribution Width SD 55.2 fl (35.1-43.9); White Blood Count 9.6 K/mm3 (4.4-11.0)
[2019-07-28 06:26] LABS: Bedside Glucose 179 mg/dL (70-110)
[2019-07-28 06:37] LABS: Anion Gap 8 (5-15); BUN 102 mg/dL (7-18); BUN/Creat Ratio 29.8 RATIO (10-20); Calcium,Total 9.2 mg/dL (8.5-10.1); Chloride 107 mmol/L (98-107); Creatinine, Serum 3.42 mg/dL (0.70-1.30); EST Glomerular Filtration Rate 19 mL/min (>60); Est Glom Filt Rate - Afr Amer 23 mL/min (>60); Glucose 176 mg/dL (74-106); Potassium 4.3 mmol/L (3.5-5.1); Sodium Level 142 mmol/L (136-145)
[2019-07-28] MEDS: Iron Polysaccharide Complex 150 MG CAPSULE PO (08:27)
[2019-07-28] MEDS: Insulin Lispro 100 UNIT/ML INSULN.PEN 30 UNIT SC (08:28)
[2019-07-28] MEDS: Tuberculin,Purif.prot.deriv. 50 TU/ML Vial 5 ML ID (09:45)
[2019-07-28 11:06] LABS: Bedside Glucose 112 mg/dL (70-110)
--- NOTE | 2019-07-28 13:44 | NURSING ---
Addendum entered by Emma Boyce 07/28/19 14:03: Pts BS rechecked, increased to 73, pt refused any more snacks, did agree to drink 120cc more of orange juice Original Note: This nurse went to pt room to administer humalog per order, when asked if pt had lunch he said no, BS was 112 at approx 11am, pt appeared lethargic and had some slurred speech, this nurse immediately checked blood sugar and it was 64. Pt was given orange juice, and lornadoons. Pt's more alert at this time and is talking/answering appropriately, RN aware
[2019-07-28 14:11] LABS: Bedside Glucose 73 mg/dL (70-110)
[2019-07-28 14:11] LABS: Bedside Glucose 64 mg/dL (70-110)
[2019-07-28 15:26] LABS: Bedside Glucose 96 mg/dL (70-110)
[2019-07-28 16:10] LABS: Bedside Glucose 97 mg/dL (70-110)
[2019-07-28 18:28] VITALS: BP 163/69; PULSE 74
[2019-07-28 21:05] VITALS: PULSE 67; O2SAT 95
[2019-07-28 21:21] LABS: Bedside Glucose 124 mg/dL (70-110)
[2019-07-29] MEDS: Acetaminophen 500 MG Tablet 1000 MG PO (02:34)
[2019-07-29 05:46] VITALS: BP 151/67; PULSE 63
[2019-07-29] MEDS: hydrALAZINE 50 MG Tablet PO (05:46)
[2019-07-29 05:47] VITALS: BP 151/67; PULSE 63
[2019-07-29] MEDS: Metoprolol(XL)Succ 50 MG Tablet PO (05:47)
[2019-07-29] MEDS: Nystatin Powder 15gm Bottle 1 APPLIC TOPICAL (05:47)
[2019-07-29] MEDS: amLODIPine 10 MG Tablet PO (05:47)
[2019-07-29] MEDS: Menthol/Lanolin/Calamine/Znox 113 GM Tube 1 APPLIC TOPICAL (05:48)
[2019-07-29 06:03] VITALS: RESP 18; TEMP 36.9; O2SAT 96
[2019-07-29 06:05] VITALS: BP 151/67; PULSE 63
[2019-07-29 06:16] LABS: Bedside Glucose 150 mg/dL (70-110)
--- NOTE | 2019-07-29 06:43 | NURSING ---
Dressing change done to RLE. Patient requested to leave acewraps off for now. RN aware.
[2019-07-29 09:00] LABS: Anion Gap 6 (5-15); BUN 90 mg/dL (7-18); BUN/Creat Ratio 28.4 RATIO (10-20); Calcium,Total 8.8 mg/dL (8.5-10.1); Chloride 112 mmol/L (98-107); Creatinine, Serum 3.17 mg/dL (0.70-1.30); EST Glomerular Filtration Rate 21 mL/min (>60); Est Glom Filt Rate - Afr Amer 26 mL/min (>60); Estimated Creatinine Clearance 29.67 ml/min; Glucose 152 mg/dL (74-106); Potassium 4.4 mmol/L (3.5-5.1); Sodium Level 143 mmol/L (136-145)
--- NOTE | 2019-07-29 09:02 | MDS.RN ---
Information for the mds was obtained from review of the clinical record, interview of resident, staff, and direct observation of resident's care.
[2019-07-29] MEDS: Iron Polysaccharide Complex 150 MG CAPSULE PO (09:54)
[2019-07-29] MEDS: Insulin Lispro 100 UNIT/ML INSULN.PEN 30 UNIT SC (09:54)
[2019-07-29 09:57] VITALS: PULSE 65; RESP 18; O2SAT 97
--- NOTE | 2019-07-29 10:13 | PN.RENAL_ITS ---
Patient Problems: Active and Suspected Problems Debility (Acute) Acute on chronic kidney failure (Acute) Subjective: The patient denies shortness of breath chest pain or left wound pain - Physical Exam Vitals/I&O's: Vital Signs Temp Pulse Resp BP Pulse Ox 98.4 F 65 18 151/67 H 97 07/29/19 06:03 07/29/19 09:57 07/29/19 09:57 07/29/19 06:05 07/29/19 09:57 Oxygen Delivery Method Room Air Weight: 189.297 kg Body Mass Index (BMI) 49.4 Finger Stick Blood Glucose 166 Intake and Output for Last 24 Hours 07/27/19 07/28/19 07/29/19 23:59 23:59 23:59 Intake Total 0 / 0 840 / 840 Output Total 140 / 140 Balance 0 / 0 830 / 830 -140 / -140 General: Alert, Cooperative HEENT: Atraumatic, Normocephalic Neck: Supple, Trachea Midline Lungs: Clear to auscultation, Normal air movement, Rales Cardiovascular: Regular rate, Regular Rhythm, Normal S1 Abdomen: Bowel Sounds Present, Soft, Obese Extremities: Edema Laboratory Results 07/28/19 10:57: POC Glucose 112 H 07/28/19 13:37: POC Glucose 64 L 07/28/19 14:01: POC Glucose 73 07/28/19 15:20: POC Glucose 96 07/28/19 16:03: POC Glucose 97 07/28/19 21:12: POC Glucose 124 H 07/29/19 05:24: Sodium 143, Potassium 4.4, Chloride 112 H, Carbon Dioxide 25.0, Anion Gap 6, BUN 90 H, Creatinine 3.17 H, Estim Creat Clear Calc 29.67, Est GFR (MDRD) Af Amer 26 L, Est GFR (MDRD) Non-Af 21 L, BUN/Creatinine Ratio 28.4 H, Glucose 152 H, Calcium 8.8 07/29/19 06:07: POC Glucose 150 H Current Medications Acetaminophen (Tylenol) 1,000 mg PO Q6H PRN PRN PRN Reason: Pain Score 1-3/10 Last Admin: 07/29/19 02:34 Dose: 1,000 mg Documented by: Amlodipine Besylate (Norvasc) 10 mg PO DAILY [facility] Last Admin: 07/29/19 05:47 Dose: 10 mg Documented by: Bisacodyl (Dulcolax) 10 mg RECTAL DAILY PRN PRN PRN Reason: Constipation Calamine/Phenol (Calmoseptine Ointment) 1 applic TOPICAL BID [facility]; Protocol Last Admin: 07/29/19 05:48 Dose: 1 applicatio Documented by: Dextrose (D50w Syringe) 0 gm IV X1 PRN; Protocol PRN Reason: Hypoglycemia Glucagon () 1 mg IM .X1 PRN PRN Reason: Hypoglycemia Hydralazine HCl (Apresoline) 50 mg PO BID [facility] Last Admin: 07/29/19 05:46 Dose: 50 mg Documented by: Insulin Human Lispro (Humalog Kwikpen ([facility])) 30 unit SC TIDCM [facility] Last Admin: 07/29/19 09:54 Dose: 30 u Documented by: Insulin Human NPH (Humulin N ([facility])) 40 units SC QHS [facility] Last Admin: 07/28/19 23:09 Dose: Not Given Documented by: Lactobacillus Acidophilus (Acidophilus) 1 tablet PO BID [facility] Last Admin: 07/29/19 05:47 Dose: 1 tablet Documented by: Metoprolol Succinate (Toprol Xl (Beta Marshall)) 50 mg PO DAILY [facility] Last Admin: 07/29/19 05:47 Dose: 50 mg Documented by: Nutritional Formula ([facility] - [place] Fl[facility]) [facility] Last Admin: 07/29/19 09:56 Dose: Not Given Documented by: Nystatin (Mycostatin Powder) 1 applic TOPICAL BID [facility]; Protocol Last Admin: 07/29/19 05:47 Dose: 1 applicatio Documented by: Oxycodone HCl (Oxyir) 5 mg PO Q4H PRN PRN PRN Reason: Pain Score 4-10/10 Last Admin: 07/22/19 20:32 Dose: 5 mg Documented by: Polyethylene Glycol (Miralax) 17 gm PO DAILY [facility] Last Admin: 07/29/19 05:41 Dose: Not Given Documented by: Polysaccharide Iron Complex (Ferrex 150) 150 mg PO DAILYCM [facility] Last Admin: 07/29/19 09:54 Dose: 150 mg Documented by: Senna/Docusate Sodium (Senokot-S, Susy-Colace) 2 tablet PO BID [facility] Last Admin: 07/29/19 05:44 Dose: Not Given Documented by: Medical Necessity - Tobacco Use Smoking Status: Never smoker Tobacco Use: Non-smoker Assessment/Plan All Active Problems Debility (Acute) Acute on chronic kidney failure (Acute) MRSA (methicillin resistant Staphylococcus aureus) (Acute) Diabetic foot infection (Acute) JOANNA deemed to be 2/2 vanco nephrotoxicity per hospital consult also IR-GN in DDX peak serum creatinine was 5.8 CKD 3 baseline this year seems to be between 1.3 and 2 HTN Anemia iron deficiency diabetic foot s/p L BKA Serum creatinine 3.17 better less prerenal not uremic Continue iron for iron deficiency anemia Recommend to adjust blood pressure medications if persistently elevated BP Will visit periodically while in the rehab. Will need follow-up scheduled with Dr. Alfaro on discharge Avoid nephrotoxins
[2019-07-29 11:21] LABS: Bedside Glucose 163 mg/dL (70-110)
[2019-07-29 14:10] VITALS: BP 132/61; PULSE 64; RESP 18; TEMP 37.7; O2SAT 96
[2019-07-29 15:26] LABS: Bedside Glucose 97 mg/dL (70-110)
[2019-07-29 17:16] LABS: Bedside Glucose 137 mg/dL (70-110)
[2019-07-29 18:11] LABS: Bedside Glucose 126 mg/dL (70-110)
[2019-07-29 21:20] LABS: Bedside Glucose 119 mg/dL (70-110)
[2019-07-30 06:21] LABS: Bedside Glucose 126 mg/dL (70-110)
[2019-07-30] MEDS: amLODIPine 10 MG Tablet PO (07:02)
[2019-07-30 07:09] LABS: Anion Gap 5 (5-15); BUN 82 mg/dL (7-18); BUN/Creat Ratio 28.2 RATIO (10-20); Calcium,Total 8.7 mg/dL (8.5-10.1); Chloride 111 mmol/L (98-107); Creatinine, Serum 2.91 mg/dL (0.70-1.30); EST Glomerular Filtration Rate 23 mL/min (>60); Est Glom Filt Rate - Afr Amer 28 mL/min (>60); Estimated Creatinine Clearance 32.32 ml/min; Glucose 143 mg/dL (74-106); Potassium 4.6 mmol/L (3.5-5.1); Sodium Level 142 mmol/L (136-145)
[2019-07-30 07:10] VITALS: BP 158/53; PULSE 84
[2019-07-30] MEDS: hydrALAZINE 50 MG Tablet PO ×2 (07:10→18:26)
[2019-07-30] MEDS: Metoprolol(XL)Succ 50 MG Tablet PO (07:10)
[2019-07-30] MEDS: Acetaminophen 500 MG Tablet 1000 MG PO (07:11)
[2019-07-30] MEDS: Menthol/Lanolin/Calamine/Znox 113 GM Tube 1 APPLIC TOPICAL (07:12)
[2019-07-30] MEDS: Nystatin Powder 15gm Bottle 1 APPLIC TOPICAL (07:12)
[2019-07-30] MEDS: Iron Polysaccharide Complex 150 MG CAPSULE PO (08:45)
--- NOTE | 2019-07-30 09:09 | NURSING ---
pt refused morning insulin. rn aware
[2019-07-30 11:21] LABS: Bedside Glucose 203 mg/dL (70-110)
[2019-07-30] MEDS: Insulin Lispro 100 UNIT/ML INSULN.PEN 30 UNIT SC (11:53)
[2019-07-30 13:45] VITALS: PULSE 64; RESP 18; O2SAT 97
[2019-07-30 16:10] VITALS: BP 150/54; PULSE 64; RESP 14; TEMP 36.7; O2SAT 97
[2019-07-30 16:51] LABS: Bedside Glucose 86 mg/dL (70-110)
--- NOTE | 2019-07-30 17:07 | NURSING ---
GOT PT TO SIT UP ON THE SIDE OF THE BED FOR ABOUT 1 HOUR TODAY. RN AWARE.
[2019-07-30 18:25] LABS: Bedside Glucose 125 mg/dL (70-110)
[2019-07-30 18:26] VITALS: BP 150/54; PULSE 64
--- NOTE | 2019-07-30 18:29 | NURSING ---
Addendum entered by Evy Edward 07/30/19 19:40: Dr. Shelley updated on situation. New order to change to regular diet. Original Note: PT REFUSING TO EAT SUPPER. PT STATED I'M NOT EATING A FUCKING THING CAUSE THEY PUT ME ON A LOW SODIUM DIET AND I WONT EAT TILL THEY TAKE ME OFF OF THE LOW SODIUM. I WILL GO HOME AND EAT WHAT I WANT SO WHATS THE DIFFERENCE. THE NEXT TIME THEY BRING ME THIS SHIT IN HERE I WILL JUST THROW THE FUCKING THING ON THE FLOOR. TRIED TO EDUCATE PT ON WHY HE HAS THIS DIET. PT DIDN'T WANT TO HEAR IT. THIS NURSE RECHECKED PT BLOOD SUGAR. NO INSULIN GIVEN DUE TO PT REFUSING AND NOT EATING. RN AWARE.
--- NOTE | 2019-07-30 19:21 | NURSING ---
asked pt if there was any one i could call to give a up date on him. pt stated no.
[2019-07-30 21:41] LABS: Bedside Glucose 123 mg/dL (70-110)
[2019-07-31 01:41] LABS: Bedside Glucose 117 mg/dL (70-110)
[2019-07-31 06:25] LABS: Bedside Glucose 136 mg/dL (70-110)
[2019-07-31 06:28] LABS: Anion Gap 6 (5-15); BUN 78 mg/dL (7-18); BUN/Creat Ratio 28.8 RATIO (10-20); Calcium,Total 8.5 mg/dL (8.5-10.1); Chloride 108 mmol/L (98-107); Creatinine, Serum 2.71 mg/dL (0.70-1.30); EST Glomerular Filtration Rate 25 mL/min (>60); Est Glom Filt Rate - Afr Amer 31 mL/min (>60); Glucose 138 mg/dL (74-106); Potassium 4.8 mmol/L (3.5-5.1); Sodium Level 139 mmol/L (136-145)
[2019-07-31 07:03] VITALS: BP 156/50; PULSE 62; RESP 16; TEMP 37.3; O2SAT 95
[2019-07-31 07:14] VITALS: BP 156/50; PULSE 62
[2019-07-31] MEDS: amLODIPine 10 MG Tablet PO (07:14)
[2019-07-31] MEDS: Metoprolol(XL)Succ 50 MG Tablet PO (07:14)
[2019-07-31] MEDS: hydrALAZINE 50 MG Tablet PO ×2 (07:14→17:50)
[2019-07-31] MEDS: Menthol/Lanolin/Calamine/Znox 113 GM Tube 1 APPLIC TOPICAL (07:15)
[2019-07-31] MEDS: Nystatin Powder 15gm Bottle 1 APPLIC TOPICAL (07:16)
--- NOTE | 2019-07-31 07:39 | NURSING ---
changed wounds to rt heel, no drainage, cleansed with ns and applied aquacell ag with dsd and kerlex. mepilex on rt lat calf dated 07/29, Mateus wraps on, harrison drained at 5 ml. pt tolerated well.
[2019-07-31] MEDS: Iron Polysaccharide Complex 150 MG CAPSULE PO (08:47)
--- NOTE | 2019-07-31 08:53 | NURSING ---
PT ATE BREAKFAST BUT REFUSED INSULIN. RN AWARE.
[2019-07-31 11:11] LABS: Bedside Glucose 182 mg/dL (70-110)
--- NOTE | 2019-07-31 11:30 | NURSING ---
ASKED PT IF THEE WAS SOME ONE I COULD CALL TO UPDATE THEM ON HOW HE WAS DOING. PT STATED NO.
[2019-07-31] MEDS: Insulin Lispro 100 UNIT/ML INSULN.PEN 30 UNIT SC (13:03)
[2019-07-31 15:18] VITALS: BP 130/60; PULSE 58; RESP 14; TEMP 37.1; O2SAT 94
[2019-07-31 16:36] LABS: Bedside Glucose 107 mg/dL (70-110)
[2019-07-31 17:50] VITALS: BP 130/60; PULSE 60
[2019-07-31 17:52] VITALS: PULSE 60
--- NOTE | 2019-07-31 18:09 | PCA ---
Passed dinner to patient offered patient assistance with removing lids from items on tray, pt exmained each item he recieveied on tray saying i don't like egg salad, i didn't order jello , i hate this low sodium bullshit v-8 juice and attempted to throw it in the trashcan that was located across the room and slammed the can up against the wall where it than landed on the floor. i asked pt if he would like anything else from the kitchen where he replied nope, i can't stand there food! i said ok well let me know if you need anything else.
--- NOTE | 2019-07-31 18:41 | NURSING ---
WHEN AID GAVE PT HIS SUPPER TRAY PT STATED WHAT IS THIS SHIT, AID STATED V8 JUICE. PT STATED I DONT WANT LOW SODIUM. THIS NURSE EXPLAINED TO PT HE WAS NOT ON A LOW SALT DIET ANY MORE. PT STATED I DONT WANT THIS SHIT AND PICKED UP CAN AND THREW IT ACROSS ROOM,BOUNCED OFF WALL INTO TRASH CAN. PT STILL VERY UNHAPPY ABOUT HIS MEALS. ASKED IF THERE WAS ANY THING I COULD GET FOR HIM PT STATED NO. PT REFUSED SUPPER AND INSULIN. PT ALSO WANTED TO KNOW WHO WAS ON TONIGHT FOR A NURSE, THIS NURSE STATED SHE DIDNT KNOW. PT STATED I HOPE ITS NOT THAT WITCH I HAD THE OTHER NIGHT. ASKED PT IF I COULD GET HIM ANY THING. PT STATED OJ. THIS NURSE GOT PT OJ. RN AWARE.
[2019-07-31 21:20] LABS: Bedside Glucose 168 mg/dL (70-110)
--- NOTE | 2019-08-01 02:38 | PCA ---
Pt refused to do Pm care jt
[2019-08-01 06:34] LABS: Anion Gap 7 (5-15); BUN 76 mg/dL (7-18); BUN/Creat Ratio 28.3 RATIO (10-20); Calcium,Total 8.9 mg/dL (8.5-10.1); Chloride 105 mmol/L (98-107); Creatinine, Serum 2.69 mg/dL (0.70-1.30); EST Glomerular Filtration Rate 26 mL/min (>60); Est Glom Filt Rate - Afr Amer 31 mL/min (>60); Estimated Creatinine Clearance 34.96 ml/min; Glucose 148 mg/dL (74-106); Potassium 4.9 mmol/L (3.5-5.1); Sodium Level 137 mmol/L (136-145)
[2019-08-01 06:51] LABS: Bedside Glucose 172 mg/dL (70-110)
[2019-08-01 07:03] VITALS: BP 162/66; PULSE 58; RESP 16; TEMP 36.8; O2SAT 96
[2019-08-01 07:05] VITALS: BP 162/66; PULSE 58
[2019-08-01] MEDS: Metoprolol(XL)Succ 50 MG Tablet PO (07:05)
[2019-08-01 07:06] VITALS: BP 162/66; PULSE 58
[2019-08-01] MEDS: amLODIPine 10 MG Tablet PO (07:06)
[2019-08-01] MEDS: hydrALAZINE 50 MG Tablet PO (07:06)
[2019-08-01] MEDS: Menthol/Lanolin/Calamine/Znox 113 GM Tube 1 APPLIC TOPICAL (07:07)
[2019-08-01] MEDS: Nystatin Powder 15gm Bottle 1 APPLIC TOPICAL (07:07)
[2019-08-01] MEDS: Insulin Lispro 100 UNIT/ML INSULN.PEN 30 UNIT SC (08:26)
[2019-08-01] MEDS: Iron Polysaccharide Complex 150 MG CAPSULE PO (08:27)
[2019-08-01 10:00] VITALS: PULSE 54; RESP 18; O2SAT 93
[2019-08-01 11:35] LABS: Bedside Glucose 108 mg/dL (70-110)
--- NOTE | 2019-08-01 12:35 | NURSING ---
wound photo: left BKA
--- NOTE | 2019-08-01 12:36 | NURSING ---
wound photo: left BKA
--- NOTE | 2019-08-01 12:36 | NURSING ---
wound photo: right heel
[2019-08-01 15:27] VITALS: BP 139/58; PULSE 58; RESP 16; TEMP 36.3; O2SAT 95
[2019-08-01 17:41] LABS: Bedside Glucose 129 mg/dL (70-110)
[2019-08-01 21:01] LABS: Bedside Glucose 148 mg/dL (70-110)
[2019-08-02 06:06] LABS: Bedside Glucose 135 mg/dL (70-110)
[2019-08-02 06:12] LABS: Anion Gap 7 (5-15); BUN 69 mg/dL (7-18); BUN/Creat Ratio 27.7 RATIO (10-20); Calcium,Total 8.7 mg/dL (8.5-10.1); Chloride 106 mmol/L (98-107); Creatinine, Serum 2.49 mg/dL (0.70-1.30); EST Glomerular Filtration Rate 28 mL/min (>60); Est Glom Filt Rate - Afr Amer 34 mL/min (>60); Estimated Creatinine Clearance 37.77 ml/min; Glucose 138 mg/dL (74-106); Potassium 4.7 mmol/L (3.5-5.1); Sodium Level 138 mmol/L (136-145)
--- NOTE | 2019-08-02 07:05 | NURSING ---
Attempted to give patient AM medications. Patient requested for meds to be given after he gets cleaned up. Merlene BATES aware.
[2019-08-02 07:27] VITALS: BP 165/58; PULSE 65
[2019-08-02] MEDS: Metoprolol(XL)Succ 50 MG Tablet PO (07:27)
[2019-08-02] MEDS: hydrALAZINE 50 MG Tablet PO ×2 (07:27→18:17)
[2019-08-02] MEDS: amLODIPine 10 MG Tablet PO (07:28)
[2019-08-02] MEDS: Nystatin Powder 15gm Bottle 1 APPLIC TOPICAL ×2 (07:28→18:19)
[2019-08-02] MEDS: Menthol/Lanolin/Calamine/Znox 113 GM Tube 1 APPLIC TOPICAL ×2 (07:29→18:18)
[2019-08-02 07:31] VITALS: BP 165/58; PULSE 65; RESP 20; TEMP 37.5; O2SAT 97
--- NOTE | 2019-08-02 07:32 | PCA ---
pt refused to wash with soap and water(basin) for am care, staff offered a face water pt refused offer. pt was incont of a small amount of stool. staff x2 cleaned pt up with wipes and placed a new attends on pt.
[2019-08-02] MEDS: Iron Polysaccharide Complex 150 MG CAPSULE PO (08:38)
[2019-08-02] MEDS: Insulin Lispro 100 UNIT/ML INSULN.PEN 30 UNIT SC ×2 (08:39→18:17)
--- NOTE | 2019-08-02 08:41 | NURSING ---
PT REQUESTED ONLY 15 UNITS FOR BREAKFAST.
[2019-08-02 11:00] LABS: Bedside Glucose 152 mg/dL (70-110)
--- NOTE | 2019-08-02 11:49 | NURSING ---
PT REFUSED INSULIN AND LUNCH. PT STATED LUNCH LOOKED LIKE PUKE. ASKED PT IF I COULD ORDER HIM SOME THING ELSE,PT STATED NO. RN AWARE.
[2019-08-02 14:23] VITALS: BP 145/63; PULSE 60; RESP 20; TEMP 37.1; O2SAT 94
--- NOTE | 2019-08-02 14:51 | CASEMGMT ---
Social Work Spoke with patient about DC plans. DC date 08/08 as pt has Medicaid as secondary and cannot private pay for copays. Pt adamant about not discharging to a SNF. Pt will DC home. Explained SW will contact APS - pt stated he will not let them in. Inquired about HHC - he is agreeable to them. Provided list of skilled HHC. Pt to restart nonskilled aides. Pt requested SW contact [facility] to coordinate them picking up hospital bed as he will buy his own adjustable bed. Pt has electric w/c and requested w/c transport through [employer]. Scheduled transportation. No other DME needs. Plan: DC home alone 08/08 with HHC PT/OT/SN/CRISOSTOMO/CHRISTIN CortezW
[2019-08-02 16:36] LABS: Bedside Glucose 176 mg/dL (70-110)
[2019-08-02 18:17] VITALS: BP 145/63; PULSE 60
--- NOTE | 2019-08-02 20:07 | PCM.DC ---
- Discharge Diagnoses Current Active Problems: Current Active and Chronic Problems Debility (Acute) Acute on chronic kidney failure (Acute) Osteomyelitis of left foot (Chronic) Diabetes mellitus (Chronic) Body mass index (BMI) 50.0-59.9, adult (Chronic) Hypertension (Chronic) Hyperlipidemia (Chronic) Chronic kidney disease (Chronic) You will use the following diet at home:: No restrictions, Regular Your food should be the consistency of: Regular Your liquids should be the consistency of: Regular/Thin Discharge Activity: Return to Normal Activity, May Take a Tub Bath Weight Bearing Status: No weight bearing Keep extremity elevated above heart level: Operative Extremity Call your doctor if you observe: Fever of 101 or Higher, Inability to urinate, Inability to have a bowel movement, Shortness of breath, Chest pain, Uncontrolled pain Allergies/Adverse Reactions: Allergies ciprofloxacin [From Cipro] Allergy (Verified 06/29/19 11:34) Rash he has tolerated oral cipro in the past levofloxacin [From Levaquin] Allergy (Verified 06/29/19 11:34) Hives morphine Allergy (Verified 07/14/19 20:42) Hives Penicillins Allergy (Verified 06/29/19 11:34) Hives silver Allergy (Verified 06/29/19 11:34) Rash Skin márquez and itches, rash Medications to take at Discharge Metoprolol(XL)Succ [Toprol Xl (Beta Marshall)] 50 mg PO DAILY 06/04/17 Insulin Regular, Human [Novolin R] 30 unit SQ TID #0 05/05/19 Insulin NPH Human Isophane [Novolin N Flexpen] 40 unit SQ QHS 06/29/19 hydrALAZINE [Apresoline] 50 mg PO BID 06/29/19 Amlodipine Besylate [Norvasc] 10 mg PO DAILY 07/11/19 Lactobacillus Acidophilus [Acidophilus] 1 tab PO BID 07/11/19 Acetaminophen [Tylenol] 1,000 mg PO Q6H PRN PRN tablet 08/02/19 Iron Polysaccharide Complex [Ferrex 150] 150 mg PO DAILYCM #30 cap 08/02/19 Menthol/Lanolin/Calamine/Znox [Calmoseptine Ointment] 1 applic TOPICAL BID tube 08/02/19 Nutritional Supplement [Vu - ORANGE FLAVOR] 1 packet PO BIDCM #60 packet 08/02/19 Nystatin Powder [Mycostatin Powder] 1 applic TOPICAL BID bottle 08/02/19 The following prescriptions were given: Iron Polysaccharide Complex [Ferrex 150] 150 mg PO DAILYCM #30 cap Transmission Status: [facility] to [id number] Nutritional Supplement [Vu - ORANGE FLAVOR] 1 packet PO BIDCM #60 packet Transmission Status: Pending to [facility] Primary Care Physician: Ac Felix MD [Primary Care Provider] - Please follow up with your Primary Care Physician in: 1 week. Test Results: Test results from this visit will be discussed in further detail at your follow-up appointment, if applicable. Please Follow Up With: Nabeel Alfaro MD When: 1 week. Please Follow Up With: Avila Bartlett MD When: 1-2 weeks Please Follow Up With: Tip Pompa MD When: 1-2 weeks Proposed Discharge Date: 08/09/19
--- NOTE | 2019-08-02 20:10 | DS.PCM_ITS ---
Discharge Date and Diagnosis - Problem List Patient Problems: Active and Suspected Problems Debility (Acute) Acute on chronic kidney failure (Acute) Date of Admission: 07/20/19 Date of Discharge: 08/09/19 - Primary Discharge Diagnosis Active and Suspected Problems Debility (Acute) Acute on chronic kidney failure (Acute) - Secondary Discharge Diagnosis Chronic Problems Osteomyelitis of left foot (Chronic) Diabetes mellitus (Chronic) Body mass index (BMI) 50.0-59.9, adult (Chronic) Hypertension (Chronic) Hyperlipidemia (Chronic) Chronic kidney disease (Chronic) History of transmetatarsal amputation of left foot (Chronic) Chronic ulcer of left foot with necrosis of muscle (Chronic) Acute kidney injury superimposed on CKD (Chronic) Lymphedema (Chronic) Venous insufficiency (Chronic) Peripheral vascular disease (Chronic) Tinea unguium (Chronic) Chronic ulcer of left foot with fat layer exposed (Chronic) Burn of leg (Chronic) Hammer toe of right foot (Chronic) Walking difficulty due to ankle and foot (Chronic) Obesity (Chronic) Type 2 diabetes mellitus with diabetic polyneuropathy (Chronic) Ulcer of left lower extremity with fat layer exposed (Chronic) Chronic ulcer of left foot with fat layer exposed (Chronic) Ulcer of right foot with fat layer exposed (Chronic) Ulcer of right lower extremity with fat layer exposed (Chronic) Ulcer of right lower extremity with fat layer exposed (Chronic) Chronic ulcer of left foot with fat layer exposed (Chronic) Dehiscence of amputation stump (Chronic) Type 2 diabetes mellitus with diabetic polyneuropathy (Chronic) Non-pressure chronic ulcer of right heel and midfoot with fat layer exposed (Chronic) Obesity (Chronic) Diabetes mellitus with polyneuropathy (Chronic) Non-pressure chronic ulcer of right heel and midfoot with necrosis of muscle (Chronic) Diabetic foot ulcer (Chronic) Osteomyelitis of foot (Chronic) Ulcer of right heel and midfoot with fat layer exposed (Chronic) Chronic ulcer of left foot with necrosis of muscle (Chronic) Hospital Course and Treatment Imaging Results: 07/30/19 19:39 Diet: Regular Diet Food consistency:: Regular Liquid Consistency:: Regular/Thin Is pt able to select menu?: Yes Clinical Impression(s) from Imaging Studies KUB X-Ray 07/22/19 15:47 IMPRESSION: Normal x-ray examination of the abdomen and pelvis. Electronically Signed: Dennis Winkler MD at 16:28 EDT , Service support , Labs (Last 48 Hours) 07/31/19 08/01/19 08/01/19 21:15 05:25 06:22 Sodium 137 Potassium 4.9 Chloride 105 Carbon Dioxide 25.0 Anion Gap 7 BUN 76 H Creatinine 2.69 H Estim Creat Clear Calc 34.96 Est GFR (MDRD) Af Amer 31 L Est GFR (MDRD) Non-Af 26 L BUN/Creatinine Ratio 28.3 H Glucose 148 H Calcium 8.9 POC Glucose 168 H 172 H 08/01/19 08/01/19 08/01/19 11:28 17:10 20:58 Sodium Potassium Chloride Carbon Dioxide Anion Gap BUN Creatinine Estim Creat Clear Calc Est GFR (MDRD) Af Amer Est GFR (MDRD) Non-Af BUN/Creatinine Ratio Glucose Calcium POC Glucose 108 129 H 148 H 08/02/19 08/02/19 08/02/19 05:05 06:02 10:51 Sodium 138 Potassium 4.7 Chloride 106 Carbon Dioxide 25.0 Anion Gap 7 BUN 69 H Creatinine 2.49 H Estim Creat Clear Calc 37.77 Est GFR (MDRD) Af Amer 34 L Est GFR (MDRD) Non-Af 28 L BUN/Creatinine Ratio 27.7 H Glucose 138 H Calcium 8.7 POC Glucose 135 H 152 H 08/02/19 16:22 Sodium Potassium Chloride Carbon Dioxide Anion Gap BUN Creatinine Estim Creat Clear Calc Est GFR (MDRD) Af Amer Est GFR (MDRD) Non-Af BUN/Creatinine Ratio Glucose Calcium POC Glucose 176 H Consultations 07/20/19 18:57 Consult: Onc/Wound/liner installer Routine Comment: Reason for Consult:: Open surgical wound s/p L BKA Operations: None, - - I&D LLE with bone Bx. 07/01/19 left BKA on 07/15/2019 Procedures: None Summary of Care Provided: The patient is a 64 year old Male with below past medical history hospitalized f or acute on chronic kidney failure, complicated by left foot osteomyelitis requiring left below the knee amputation 07/15/[address] Pompa, admitted to TCU with debility, here for rehabilitation, strengthening, prior to discharge home alone. Discharge home alone, Home Health Care PT/OT/SN/FLOOR COVERING INSTALLER/SW. Patient Problems: Active and Suspected Problems Debility (Acute) Acute on chronic kidney failure (Acute) - Physical Exam Vitals/I&O's: Vital Signs Temp Pulse Resp BP Pulse Ox 98.7 F 60 20 H 145/63 H 94 08/02/19 14:23 08/02/19 18:17 08/02/19 14:23 08/02/19 18:17 08/02/19 14:23 Oxygen Delivery Method Room Air Weight: 189.297 kg Body Mass Index (BMI) 49.4 Finger Stick Blood Glucose 166 Intake and Output for Last 24 Hours 07/31/19 08/01/19 08/02/19 23:59 23:59 23:59 Intake Total 680 / 680 480 / 480 600 / 600 Output Total 5 / 5 800 / 800 515 / 515 Balance 675 / 675 -320 / -320 85 / 85 Laboratory Results 08/01/19 20:58: POC Glucose 148 H 08/02/19 05:05: Sodium 138, Potassium 4.7, Chloride 106, Carbon Dioxide 25.0, Anion Gap 7, BUN 69 H, Creatinine 2.49 H, Estim Creat Clear Calc 37.77, Est GFR (MDRD) Af Amer 34 L, Est GFR (MDRD) Non-Af 28 L, BUN/Creatinine Ratio 27.7 H, Glucose 138 H, Calcium 8.7 08/02/19 06:02: POC Glucose 135 H 08/02/19 10:51: POC Glucose 152 H 08/02/19 16:22: POC Glucose 176 H Current Medications Acetaminophen (Tylenol) 1,000 mg PO Q6H PRN PRN PRN Reason: Pain Score 1-3/10 Last Admin: 07/30/19 07:11 Dose: 1,000 mg Documented by: Amlodipine Besylate (Norvasc) 10 mg PO DAILY [facility] Last Admin: 08/02/19 07:28 Dose: 10 mg Documented by: Bisacodyl (Dulcolax) 10 mg RECTAL DAILY PRN PRN PRN Reason: Constipation Calamine/Phenol (Calmoseptine Ointment) 1 applic TOPICAL BID [facility]; Protocol Last Admin: 08/02/19 18:18 Dose: 1 applicatio Documented by: Dextrose (D50w Syringe) 0 gm IV X1 PRN; Protocol PRN Reason: Hypoglycemia Glucagon () 1 mg IM .X1 PRN PRN Reason: Hypoglycemia Hydralazine HCl (Apresoline) 50 mg PO BID [facility] Last Admin: 08/02/19 18:17 Dose: 50 mg Documented by: Insulin Human Lispro (Humalog Kwikpen ([facility])) 30 unit SC TIDCM [facility] Last Admin: 08/02/19 18:17 Dose: 30 u Documented by: Insulin Human NPH (Humulin N ([facility])) 40 units SC QHS [facility] Last Admin: 08/01/19 21:47 Dose: Not Given Documented by: Lactobacillus Acidophilus (Acidophilus) 1 tablet PO BID [facility] Last Admin: 08/02/19 18:15 Dose: Not Given Documented by: Metoprolol Succinate (Toprol Xl (Beta Marshall)) 50 mg PO DAILY [facility] Last Admin: 08/02/19 07:27 Dose: 50 mg Documented by: Nutritional Formula (Vu - [place] Flavor) [facility] Last Admin: 08/02/19 18:14 Dose: Not Given Documented by: Nystatin (Mycostatin Powder) 1 applic TOPICAL BID [facility]; Protocol Last Admin: 08/02/19 18:19 Dose: 1 applicatio Documented by: Oxycodone HCl (Oxyir) 5 mg PO Q4H PRN PRN PRN Reason: Pain Score 4-10/10 Last Admin: 07/22/19 20:32 Dose: 5 mg Documented by: Polyethylene Glycol (Miralax) 17 gm PO DAILY [facility] Last Admin: 08/02/19 07:26 Dose: Not Given Documented by: Polysaccharide Iron Complex (Ferrex 150) [facility] Last Admin: 08/02/19 08:38 Dose: 150 mg Documented by: Senna/Docusate Sodium (Senokot-S, Susy-Colace) 2 tablet PO BID [facility] Last Admin: 08/02/19 18:18 Dose: Not Given Documented by: Discharge Diet: No Restrictions Discharge Activity: Return to Normal Activity, May Take a Tub Bath Weight Bearing Status: No weight bearing Keep extremity elevated above heart level: Operative Extremity Call your doctor if you observe: Fever of 101 or Higher, Inability to urinate, Inability to have a bowel movement, Shortness of breath, Chest pain, Uncontrolled pain Home Medications: Medications to take at Discharge Metoprolol(XL)Succ [Toprol Xl (Beta Marshall)] 50 mg PO DAILY 06/04/17 Insulin Regular, Human [Novolin R] 30 unit SQ TID #0 05/05/19 Insulin NPH Human Isophane [Novolin N Flexpen] 40 unit SQ QHS 06/29/19 hydrALAZINE [Apresoline] 50 mg PO BID 06/29/19 Amlodipine Besylate [Norvasc] 10 mg PO DAILY 07/11/19 Lactobacillus Acidophilus [Acidophilus] 1 tab PO BID 07/11/19 Acetaminophen [Tylenol] 1,000 mg PO Q6H PRN PRN tablet 08/02/19 Iron Polysaccharide Complex [Ferrex 150] 150 mg PO DAILYCM #30 cap 08/02/19 Menthol/Lanolin/Calamine/Znox [Calmoseptine Ointment] 1 applic TOPICAL BID tube 08/02/19 Nutritional Supplement [Vu - ORANGE FLAVOR] 1 packet PO BIDCM #60 packet 08/02/19 Nystatin Powder [Mycostatin Powder] 1 applic TOPICAL BID bottle 08/02/19 Following Prescrptions Were Given to Patient: Iron Polysaccharide Complex [Ferrex 150] 150 mg PO DAILYCM #30 cap Transmission Status: [facility] Nutritional Supplement [Vu - ORANGE FLAVOR] 1 packet PO BIDCM #60 packet Transmission Status: P[facility] Primary Care Physician: Ac Felix MD [Primary Care Provider] - Please follow up with your Primary Care Physician in: 1 week. Please Follow Up With: Nabeel Alfaro MD When: 1 week. Please Follow Up With: Avila Bartlett MD When: 1-2 weeks Please Follow Up With: Tip Pompa MD When: 1-2 weeks Disposition: Home with Home Health Minutes spent on discharge:: 35 Patient Condition:: Stable Medical Necessity - Tobacco Use Smoking Status: Never smoker Tobacco Use: Non-smoker Meaningful Use Info Meaningful Use Diagnoses (Choose all that apply): None applicable
[2019-08-02 21:10] LABS: Bedside Glucose 104 mg/dL (70-110)
--- NOTE | 2019-08-03 00:42 | NURSING ---
dressing changed to rt heel, cleansed with ns applied aquacell ag, dsd and kerlex per order. pt also requested a abd on rt lateral leg to help protect skin, mepilex also on lateral calf, dated 07/28, pt stated he would like it left on for tyler to change. wound vac running at 150. pt tolerated all well.
[2019-08-03 02:51] LABS: Bedside Glucose 133 mg/dL (70-110)
[2019-08-03 04:00] VITALS: BP 152/89; PULSE 67; RESP 18; TEMP 36.8; O2SAT 97
[2019-08-03 06:30] LABS: Bedside Glucose 153 mg/dL (70-110)
[2019-08-03] MEDS: amLODIPine 10 MG Tablet PO (07:02)
[2019-08-03 07:03] VITALS: BP 152/89; PULSE 67
[2019-08-03] MEDS: Metoprolol(XL)Succ 50 MG Tablet PO (07:03)
[2019-08-03] MEDS: hydrALAZINE 50 MG Tablet PO ×2 (07:03→17:49)
[2019-08-03] MEDS: Nystatin Powder 15gm Bottle 1 APPLIC TOPICAL (07:04)
[2019-08-03] MEDS: Menthol/Lanolin/Calamine/Znox 113 GM Tube 1 APPLIC TOPICAL (07:04)
[2019-08-03 07:39] LABS: Anion Gap 5 (5-15); BUN 65 mg/dL (7-18); BUN/Creat Ratio 25.4 RATIO (10-20); Calcium,Total 8.8 mg/dL (8.5-10.1); Chloride 107 mmol/L (98-107); Creatinine, Serum 2.56 mg/dL (0.70-1.30); EST Glomerular Filtration Rate 27 mL/min (>60); Est Glom Filt Rate - Afr Amer 33 mL/min (>60); Estimated Creatinine Clearance 36.74 ml/min; Glucose 151 mg/dL (74-106); Potassium 4.9 mmol/L (3.5-5.1); Sodium Level 139 mmol/L (136-145)
[2019-08-03] MEDS: Iron Polysaccharide Complex 150 MG CAPSULE PO (08:47)
[2019-08-03] MEDS: Insulin Lispro 100 UNIT/ML INSULN.PEN 30 UNIT SC ×2 (08:47→11:56)
--- NOTE | 2019-08-03 08:53 | NURSING ---
PT REQUESTED ONLY 20 UNITS FOR BREAKFAST.
[2019-08-03 11:06] LABS: Bedside Glucose 155 mg/dL (70-110)
[2019-08-03 13:44] VITALS: BP 115/50; PULSE 64; RESP 18; TEMP 36.9; O2SAT 90
[2019-08-03 13:55] VITALS: PULSE 81; RESP 18; O2SAT 97
--- NOTE | 2019-08-03 15:40 | NURSING ---
Notified by ANTONIO Maloney that patient received a skin tear during transfer with therapy while using darlene. Mc Kay Machine Operator Marietta notified. Wound consult placed.
--- NOTE | 2019-08-03 16:12 | NURSING ---
AT 1530 THERAPY STATED TO THIS NURSE THAT PT RIGHT 2ND TOE WAS BLEEDING. THIS NURSE ASKED PT WHAT HAPPENED AND PT AND THERAPY STATED THAT THEY THINK THAT HIS FOOT GOT HIT ON THE HUE WHILE PUTTING PT TO BED. AID STATED TO THIS NURSE THAT SHE WAS IN THERE AND DIDNT SEE HIS FOOT GET HIT AND THINKS MAYBE IT HAPPENED WHEN HE WAS IN HIS CHAIR. THIS NURSE CLEANED AND APPLIED DRESSING. RN AWARE.
[2019-08-03 16:55] LABS: Bedside Glucose 84 mg/dL (70-110)
[2019-08-03 17:49] VITALS: BP 115/50; PULSE 64
--- NOTE | 2019-08-03 17:52 | NURSING ---
HELD INSULIN AT SUPPER. B.S 84 AND PT REFUSED TO EAT. OJ GIVEN. RN AWARE.
--- NOTE | 2019-08-03 18:31 | NURSING ---
JANA JANE/WOUND NURSE INTO CHANGE WOUND VAC AND DRESSING TO RIGHT HEEL.
[2019-08-03 21:16] LABS: Bedside Glucose 134 mg/dL (70-110)
--- NOTE | 2019-08-03 22:59 | PCA ---
pt refused to do any PM care this evening
[2019-08-04 04:00] VITALS: BP 132/63; PULSE 64; RESP 18; TEMP 36.8; O2SAT 98
[2019-08-04 06:28] VITALS: BP 132/63; PULSE 64
[2019-08-04] MEDS: Metoprolol(XL)Succ 50 MG Tablet PO (06:28)
[2019-08-04] MEDS: amLODIPine 10 MG Tablet PO (06:28)
[2019-08-04] MEDS: Senna/Docusate Sodium 1 Tablet 2 TABLET PO (06:29)
[2019-08-04 06:30] VITALS: BP 132/63; PULSE 64
[2019-08-04 06:30] LABS: Bedside Glucose 143 mg/dL (70-110)
[2019-08-04] MEDS: hydrALAZINE 50 MG Tablet PO ×2 (06:30→17:50)
--- NOTE | 2019-08-04 06:32 | NURSING ---
Addendum entered by Delma Zuniga 08/04/19 07:29: Pt states, he will allow labs to be drawn. This nurse called lab to have come and draw labs again. RN aware. Original Note: Pt refused labs to be drawn this AM states, i'm sick and tried of being stuck with a needle. Explained to patient what the labs are been drawn for Rn aware.
[2019-08-04 08:14] LABS: Absolute Lymphocyte Count 1.27 X10^3/uL (0.83-4.51); Absolute Neutrophil Count 3.5 X10^3/uL (2.0-7.7); Basophil# 0.03 X10^3/uL; Basophil% 0.5 % (0-1); Eosinophil# 0.36 X10^3/uL; Eosinophils% 6.1 % (0-5); Hematocrit 29.1 % (40-54); Hemoglobin 8.8 g/dL (13.0-16.5); Lymphocyte # 1.27 X10^3/ul (4.0); Lymphocyte % 21.6 % (19-41); Mean Corp Hgb Conc 30.2 g/dL (32-36); Mean Corpuscular Hgb 26.7 pg (27.0-32.0); Mean Corpuscular Volume 88.4 fL (80-94); Mean Platelet Vol. 11.4 fl (6.2-12.0); Monocyte# 0.67 X10^3/uL; Monocyte% 11.4 % (0-10); NRBC Flagged by Analyzer 0 % (0-5); Neutrophil # 3.54 X10^3/uL (2.7-7.7); Neutrophil % 60.1 % (47-70); Platelet Count 185 K/mm3 (150-450); RBC Distribution Width CV 17.2 % (11.6-14.6); RBC Distribution Width SD 55.5 fl (35.1-43.9); Red Blood Count 3.29 M/mm3 (4.6-6.2); White Blood Count 5.9 K/mm3 (4.4-11.0)
[2019-08-04] MEDS: Insulin Lispro 100 UNIT/ML INSULN.PEN 30 UNIT SC (08:22)
[2019-08-04] MEDS: Iron Polysaccharide Complex 150 MG CAPSULE PO (08:24)
[2019-08-04 08:33] LABS: Anion Gap 6 (5-15); BUN 57 mg/dL (7-18); BUN/Creat Ratio 23.9 RATIO (10-20); Calcium,Total 8.4 mg/dL (8.5-10.1); Chloride 107 mmol/L (98-107); Creatinine, Serum 2.38 mg/dL (0.70-1.30); EST Glomerular Filtration Rate 29 mL/min (>60); Est Glom Filt Rate - Afr Amer 36 mL/min (>60); Estimated Creatinine Clearance 39.52 ml/min; Glucose 160 mg/dL (74-106); Potassium 4.8 mmol/L (3.5-5.1); Sodium Level 139 mmol/L (136-145)
--- NOTE | 2019-08-04 10:37 | PN.SURG_ITS ---
Patient Problems: Active and Suspected Problems Debility (Acute) Acute on chronic kidney failure (Acute) Subjective: Post op surgery from 07/15/19 for a Left BKA. Objective: Patient is resting in bed comfortably. Denies any complaints at this time. - Physical Exam Vitals/I&O's: Vital Signs Temp Pulse Resp BP Pulse Ox 98.2 F 64 18 132/63 H 98 08/04/19 04:00 08/04/19 06:30 08/04/19 04:00 08/04/19 06:30 08/04/19 04:00 Oxygen Delivery Method Room Air Weight: 404 lb 8 oz Body Mass Index (BMI) 49.4 Finger Stick Blood Glucose 166 Intake and Output for Last 24 Hours 08/02/19 08/03/19 08/04/19 23:59 23:59 23:59 Intake Total 720 / 720 480 / 480 480 / 480 Output Total 515 / 515 5 / 5 Balance 205 / 205 475 / 475 480 / 480 General: Alert, Oriented x3, Cooperative HEENT: Atraumatic Oral: Moist Mucosa Lungs: Normal air movement Cardiovascular: Regular rate Abdomen: Obese Extremities: Capillary Refill Less than 3 Seconds, Edema Skin: Ulcer/ Wound - Left stump drain removed without difficulty. Sutures intact. Wound VAC dressing in place. Musculoskeletal: No Tenderness to Palpation of Joints or Extremities Neurological: Neuro grossly intact Psych/Mental Status: Normal Affect, Appropriate Laboratory Results 08/03/19 10:54: POC Glucose 155 H 08/03/19 16:49: POC Glucose 84 08/03/19 21:07: POC Glucose 134 H 08/04/19 06:26: POC Glucose 143 H 08/04/19 07:42: WBC 5.9, RBC 3.29 L, Hgb 8.8 L, Hct 29.1 L, MCV 88.4, MCH 26.7 L , MCHC 30.2 L, RDW Std Deviation 55.5 H, RDW Coeff of Pool 17.2 H, Plt Count 185, MPV 11.4, Immature Gran % (Auto) 0.300, Neut % (Auto) 60.1, Lymph % (Auto) 21.6, [place] % (Auto) 11.4 H, Eos % (Auto) 6.1 H, Baso % (Auto) 0.5, Absolute Neuts (auto) 3.5, Absolute Lymphs (auto) 1.27, Nucleated RBC % 0 08/04/19 07:42: Sodium 139, Potassium 4.8, Chloride 107, Carbon Dioxide 26.0, Anion Gap 6, BUN 57 H, Creatinine 2.38 H, Estim Creat Clear Calc 39.52, Est GFR (MDRD) Af Amer 36 L, Est GFR (MDRD) Non-Af 29 L, BUN/Creatinine Ratio 23.9 H, Glucose 160 H, Calcium 8.4 L Current Medications Acetaminophen (Tylenol) 1,000 mg PO Q6H PRN PRN PRN Reason: Pain Score 1-3/10 Last Admin: 07/30/19 07:11 Dose: 1,000 mg Documented by: Amlodipine Besylate (Norvasc) 10 mg PO DAILY [facility] Last Admin: 08/04/19 06:28 Dose: 10 mg Documented by: Bisacodyl (Dulcolax) 10 mg RECTAL DAILY PRN PRN PRN Reason: Constipation Calamine/Phenol (Calmoseptine Ointment) 1 applic TOPICAL BID [facility]; Protocol Last Admin: 08/04/19 06:31 Dose: Not Given Documented by: Dextrose (D50w Syringe) 0 gm IV X1 PRN; Protocol PRN Reason: Hypoglycemia Glucagon () 1 mg IM .X1 PRN PRN Reason: Hypoglycemia Hydralazine HCl (Apresoline) 50 mg PO BID [facility] Last Admin: 08/04/19 06:30 Dose: 50 mg Documented by: Insulin Human Lispro (Humalog Kwikpen (Bk)) 30 unit SC TIDCM [facility] Last Admin: 08/04/19 08:22 Dose: 30 u Documented by: Insulin Human NPH (Humulin N (Bk)) 40 units SC QHS [facility] Last Admin: 08/03/19 22:21 Dose: Not Given Documented by: Lactobacillus Acidophilus (Acidophilus) 1 tablet PO BID [facility] Last Admin: 08/04/19 06:30 Dose: Not Given Documented by: Metoprolol Succinate (Toprol Xl (Beta Marshall)) 50 mg PO DAILY [facility] Last Admin: 08/04/19 06:28 Dose: 50 mg Documented by: Nutritional Formula ([facility] - [place] Fl[facility]) [facility] Last Admin: 08/04/19 08:25 Dose: Not Given Documented by: Nystatin (Mycostatin Powder) 1 applic TOPICAL BID [facility]; Protocol Last Admin: 08/04/19 06:31 Dose: Not Given Documented by: Oxycodone HCl (Oxyir) 5 mg PO Q4H PRN PRN PRN Reason: Pain Score 4-1010 Last Admin: 07/22/19 20:32 Dose: 5 mg Documented by: Polyethylene Glycol (Miralax) 17 gm PO DAILY [facility] Last Admin: 08/04/19 06:30 Dose: Not Given Documented by: Polysaccharide Iron Complex (Ferrex 150) [facility] Last Admin: 08/04/19 08:24 Dose: 150 mg Documented by: Senna/Docusate Sodium (Senokot-S, Susy-Colace) 2 tablet PO BID [facility] Last Admin: 08/04/19 06:29 Dose: 2 tablet Documented by: Medical Necessity - Tobacco Use Smoking Status: Never smoker Tobacco Use: Non-smoker Assessment/Plan All Active Problems Debility (Acute) Acute on chronic kidney failure (Acute) MRSA (methicillin resistant Staphylococcus aureus) (Acute) Diabetic foot infection (Acute) 1. Nonhealing infected diabetic ulcers of left foot 2. Osteomyelitis -Removed drain from left BKA stump. -Incision dry and intact- no sign of hematoma -Sutures intact- will remove them at the wound center -Wear CHUCK wrap over stump for compression -Follow up wound center on 08/15/19 -Continue wound VAC with home health changing the VAC once discharged home. 3. Acute kidney injury from recent medication. 4. s/p TMA Left foot 5. Lymphedema lower extremities 6. Venous insufficiency lower extremities 7. Obesity. 8. MRSA 9. Anemia of chronic disease, acute on chronic
[2019-08-04 10:56] LABS: Bedside Glucose 117 mg/dL (70-110)
--- NOTE | 2019-08-04 11:45 | NURSING ---
Dr Pompa and CHELSI Bernardo had been in and removed the JESSICA drain from the left stump. states sutures will be removed at the wound healing center. pt is scheduled to be discharged on 08/09/19.
--- NOTE | 2019-08-04 11:52 | CASEMGMT ---
Social Work Pt chose [facility]. Referral made to PT/OT/SN/CRISOSTOMO/SW. Will make APS referral at [place] as pt is recommended for continued stay in a SNF but pt denied transfer. Wound Nurse completed orders for wound vac at home. [facility] to provide supplies. No DME needs. Tiesha Cummins, [employer]
[2019-08-04 14:47] VITALS: BP 129/49; PULSE 62; RESP 21; TEMP 37.1; O2SAT 93
--- NOTE | 2019-08-04 15:33 | NURSING ---
Pt denied need for staff to contact family. States Tabbi is working until 5pm anyway.
[2019-08-04 16:36] LABS: Bedside Glucose 168 mg/dL (70-110)
--- NOTE | 2019-08-04 17:05 | NURSING ---
Dr ann here and saw pt today, will f/u at wound center for suture removal on August 14
[2019-08-04 17:50] VITALS: BP 132/60; PULSE 62
[2019-08-04] MEDS: Nystatin Powder 15gm Bottle 1 APPLIC TOPICAL (17:51)
[2019-08-04] MEDS: Menthol/Lanolin/Calamine/Znox 113 GM Tube 1 APPLIC TOPICAL (17:51)
[2019-08-04 20:10] VITALS: PULSE 68; RESP 16; O2SAT 98
[2019-08-04 22:35] LABS: Bedside Glucose 131 mg/dL (70-110)
[2019-08-05 04:00] VITALS: BP 141/54; PULSE 65; RESP 18; TEMP 37; O2SAT 95
[2019-08-05 06:01] VITALS: BP 141/54; PULSE 65
[2019-08-05] MEDS: Senna/Docusate Sodium 1 Tablet 2 TABLET PO (06:01)
[2019-08-05] MEDS: amLODIPine 10 MG Tablet PO (06:01)
[2019-08-05] MEDS: hydrALAZINE 50 MG Tablet PO ×2 (06:01→17:28)
[2019-08-05 06:04] VITALS: BP 141/54; PULSE 65
[2019-08-05] MEDS: Metoprolol(XL)Succ 50 MG Tablet PO (06:04)
[2019-08-05 06:36] LABS: Bedside Glucose 162 mg/dL (70-110)
[2019-08-05] MEDS: Iron Polysaccharide Complex 150 MG CAPSULE PO (08:33)
[2019-08-05 10:00] VITALS: PULSE 71; RESP 16; O2SAT 95
--- NOTE | 2019-08-05 11:04 | PN.RENAL_ITS ---
Patient Problems: Active and Suspected Problems Debility (Acute) Acute on chronic kidney failure (Acute) Subjective: no left leg pain in the stump - Physical Exam Vitals/I&O's: Vital Signs Temp Pulse Resp BP Pulse Ox 98.6 F 71 16 141/54 H 95 08/05/19 04:00 08/05/19 10:00 08/05/19 10:00 08/05/19 06:04 08/05/19 10:00 Oxygen Delivery Method Room Air Weight: 183.478 kg Body Mass Index (BMI) 49.4 Finger Stick Blood Glucose 166 Intake and Output for Last 24 Hours 08/03/19 08/04/19 08/05/19 23:59 23:59 23:59 Intake Total 480 / 480 1200 / 1200 120 / 120 Output Total 5 / 5 Balance 475 / 475 1200 / 1200 120 / 120 General: Alert, Cooperative HEENT: Atraumatic, EOMI Oral: Moist Mucosa Neck: Supple Lungs: Clear to auscultation, Normal air movement Cardiovascular: Regular rate, Regular Rhythm, Normal S1, Normal S2 Abdomen: Bowel Sounds Present, Soft, Obese Extremities: No clubbing, - - Left BKA marlo wrap Laboratory Results 08/04/19 16:24: POC Glucose 168 H 08/04/19 22:31: POC Glucose 131 H 08/05/19 06:26: POC Glucose 162 H Current Medications Acetaminophen (Tylenol) 1,000 mg PO Q6H PRN PRN PRN Reason: Pain Score 1-3/10 Last Admin: 07/30/19 07:11 Dose: 1,000 mg Documented by: Amlodipine Besylate (Norvasc) 10 mg PO DAILY [facility] Last Admin: 08/05/19 06:01 Dose: 10 mg Documented by: Bisacodyl (Dulcolax) 10 mg RECTAL DAILY PRN PRN PRN Reason: Constipation Calamine/Phenol (Calmoseptine Ointment) 1 applic TOPICAL BID [facility]; Protocol Last Admin: 08/05/19 06:05 Dose: Not Given Documented by: Dextrose (D50w Syringe) 0 gm IV X1 PRN; Protocol PRN Reason: Hypoglycemia Glucagon () 1 mg IM .X1 PRN PRN Reason: Hypoglycemia Hydralazine HCl (Apresoline) 50 mg PO BID [facility] Last Admin: 08/05/19 06:01 Dose: 50 mg Documented by: Insulin Human Lispro (Humalog Kwikpen (Bkc)) 30 unit SC TIDCM [facility] Last Admin: 08/05/19 08:32 Dose: Not Given Documented by: Insulin Human NPH (Humulin N (Bkc)) 40 units SC QHS [facility] Last Admin: 08/04/19 23:04 Dose: Not Given Documented by: Lactobacillus Acidophilus (Acidophilus) 1 tablet PO BID [facility] Last Admin: 08/05/19 06:01 Dose: 1 tablet Documented by: Metoprolol Succinate (Toprol Xl (Beta Marshall)) 50 mg PO DAILY [facility] Last Admin: 08/05/19 06:04 Dose: 50 mg Documented by: Nutritional Formula ([facility]u - [place] Flavor) [facility] Last Admin: 08/05/19 08:33 Dose: Not Given Documented by: Nystatin (Mycostatin Powder) 1 applic TOPICAL BID [facility]; Protocol Last Admin: 08/05/19 06:06 Dose: Not Given Documented by: Oxycodone HCl (Oxyir) 5 mg PO Q4H PRN PRN PRN Reason: Pain Score 4-10/10 Last Admin: 07/22/19 20:32 Dose: 5 mg Documented by: Polyethylene Glycol (Miralax) 17 gm PO DAILY [facility] Last Admin: 08/05/19 06:06 Dose: Not Given Documented by: Polysaccharide Iron Complex (Ferrex 150) [facility] Last Admin: 08/05/19 08:33 Dose: 150 mg Documented by: Senna/Docusate Sodium (Senokot-S, Susy-Colace) 2 tablet PO BID [facility] Last Admin: 08/05/19 06:01 Dose: 2 tablet Documented by: Medical Necessity - Tobacco Use Smoking Status: Never smoker Tobacco Use: Non-smoker Assessment/Plan All Active Problems Debility (Acute) Acute on chronic kidney failure (Acute) MRSA (methicillin resistant Staphylococcus aureus) (Acute) Diabetic foot infection (Acute) JOANNA deemed to be 2/2 vanco nephrotoxicity per hospital consult also IR-GN in DDX peak serum creatinine was 5.8 CKD 3 baseline this year seems to be between 1.3 and 2 HTN Anemia iron deficiency diabetic foot s/p L BKA Serum creatinine 2.38 better less prerenal not uremic Continue iron for iron deficiency anemia bp better cannot adjust further as diastolic on the low side Will visit periodically while in the rehab. Will need follow-up scheduled with Dr. Alfaro on discharge Avoid nephrotoxins
[2019-08-05 11:20] LABS: Bedside Glucose 190 mg/dL (70-110)
[2019-08-05 14:29] VITALS: BP 133/66; PULSE 71; RESP 18; TEMP 36.8; O2SAT 97
[2019-08-05 17:01] LABS: Bedside Glucose 158 mg/dL (70-110)
[2019-08-05 17:28] VITALS: BP 133/66; PULSE 71
[2019-08-05] MEDS: Menthol/Lanolin/Calamine/Znox 113 GM Tube 1 APPLIC TOPICAL (17:28)
[2019-08-05] MEDS: Nystatin Powder 15gm Bottle 1 APPLIC TOPICAL (17:29)
[2019-08-05] MEDS: Insulin Lispro 100 UNIT/ML INSULN.PEN 30 UNIT SC (17:34)
[2019-08-05 21:45] LABS: Bedside Glucose 119 mg/dL (70-110)
[2019-08-06 04:00] VITALS: BP 161/63; PULSE 60; RESP 18; TEMP 37; O2SAT 97
[2019-08-06] MEDS: Nystatin Powder 15gm Bottle 1 APPLIC TOPICAL (06:00)
[2019-08-06 06:01] VITALS: BP 161/63; PULSE 60
[2019-08-06] MEDS: Menthol/Lanolin/Calamine/Znox 113 GM Tube 1 APPLIC TOPICAL (06:01)
[2019-08-06] MEDS: hydrALAZINE 50 MG Tablet PO ×2 (06:01→17:31)
[2019-08-06 06:02] VITALS: BP 161/63; PULSE 60
[2019-08-06] MEDS: Metoprolol(XL)Succ 50 MG Tablet PO (06:02)
[2019-08-06] MEDS: amLODIPine 10 MG Tablet PO (06:02)
[2019-08-06 07:10] LABS: Bedside Glucose 148 mg/dL (70-110)
[2019-08-06] MEDS: Insulin Lispro 100 UNIT/ML INSULN.PEN 30 UNIT SC ×2 (08:15→17:33)
[2019-08-06] MEDS: Iron Polysaccharide Complex 150 MG CAPSULE PO (08:17)
--- NOTE | 2019-08-06 10:58 | NURSING ---
Dr Shelley notified of positive occult stool sample
[2019-08-06 11:21] LABS: Bedside Glucose 159 mg/dL (70-110)
[2019-08-06 14:08] VITALS: BP 147/71; PULSE 65; RESP 20; TEMP 37; O2SAT 96
[2019-08-06 17:00] LABS: Bedside Glucose 161 mg/dL (70-110)
[2019-08-06 17:31] VITALS: BP 147/71; PULSE 65
[2019-08-06 21:20] VITALS: PULSE 52; RESP 18; O2SAT 96
[2019-08-06 21:21] LABS: Bedside Glucose 105 mg/dL (70-110)
[2019-08-07 06:21] LABS: Bedside Glucose 156 mg/dL (70-110)
[2019-08-07 06:38] VITALS: BP 161/61; PULSE 66; RESP 16; TEMP 37.1; O2SAT 97
--- NOTE | 2019-08-07 06:39 | NURSING ---
Patient requested to wait some time to administer medications/t/ not feeling well. RN aware.
[2019-08-07 08:00] VITALS: BP 161/61; PULSE 66
[2019-08-07] MEDS: Polyethylene Glycol 3350 17 GM PACKET PO (08:00)
[2019-08-07] MEDS: hydrALAZINE 50 MG Tablet PO (08:00)
[2019-08-07 08:01] VITALS: BP 161/61; PULSE 66
[2019-08-07] MEDS: Senna/Docusate Sodium 1 Tablet 2 TABLET PO ×2 (08:01→17:30)
[2019-08-07] MEDS: amLODIPine 10 MG Tablet PO (08:01)
[2019-08-07] MEDS: Metoprolol(XL)Succ 50 MG Tablet PO (08:01)
[2019-08-07] MEDS: Iron Polysaccharide Complex 150 MG CAPSULE PO (08:02)
[2019-08-07 09:14] VITALS: PULSE 59; RESP 16; O2SAT 95
[2019-08-07] MEDS: Insulin Lispro 100 UNIT/ML INSULN.PEN 30 UNIT SC (13:13)
[2019-08-07 13:21] LABS: Bedside Glucose 202 mg/dL (70-110)
[2019-08-07 14:30] VITALS: BP 125/46; PULSE 56; RESP 18; TEMP 36.7; O2SAT 96
[2019-08-07 16:16] LABS: Bedside Glucose 116 mg/dL (70-110)
[2019-08-07 21:51] LABS: Bedside Glucose 139 mg/dL (70-110)
[2019-08-08 04:00] VITALS: BP 151/71; PULSE 67; RESP 14; TEMP 36.9; O2SAT 93
[2019-08-08 06:25] VITALS: BP 151/71; PULSE 67
[2019-08-08] MEDS: hydrALAZINE 50 MG Tablet PO ×2 (06:25→17:40)
[2019-08-08] MEDS: Nystatin Powder 15gm Bottle 1 APPLIC TOPICAL (06:25)
[2019-08-08] MEDS: amLODIPine 10 MG Tablet PO (06:25)
[2019-08-08] MEDS: Metoprolol(XL)Succ 50 MG Tablet PO (06:25)
[2019-08-08] MEDS: Menthol/Lanolin/Calamine/Znox 113 GM Tube 1 APPLIC TOPICAL (06:26)
[2019-08-08 06:41] LABS: Bedside Glucose 144 mg/dL (70-110)
[2019-08-08 07:21] LABS: Albumin, Serum 2.2 g/dL (3.2-5.0); BUN 38 mg/dL (7-18); BUN/Creat Ratio 16.7 RATIO (10-20); Calcium,Total 8.8 mg/dL (8.5-10.1); Chloride 105 mmol/L (98-107); Creatinine, Serum 2.27 mg/dL (0.70-1.30); EST Glomerular Filtration Rate 31 mL/min (>60); Est Glom Filt Rate - Afr Amer 38 mL/min (>60); Estimated Creatinine Clearance 41.43 ml/min; Glucose 146 mg/dL (74-106); Phosphorus 4.2 mg/dL (2.5-4.9); Potassium 4.9 mmol/L (3.5-5.1); Sodium Level 136 mmol/L (136-145)
[2019-08-08] MEDS: Iron Polysaccharide Complex 150 MG CAPSULE PO (07:57)
--- NOTE | 2019-08-08 08:20 | PCM.PN.REN ---
Patient Problems: Active and Suspected Problems Debility (Acute) Acute on chronic kidney failure (Acute) Subjective: Following for JOANNA. Pt denies CP, SOB, nausea or diarrhea. He tells me that he is going home tomorrow. - Physical Exam Vitals/I&O's: Vital Signs Temp Pulse Resp BP Pulse Ox 98.5 F 67 14 151/71 H 93 08/08/19 04:00 08/08/19 06:25 08/08/19 04:00 08/08/19 06:25 08/08/19 04:00 Oxygen Delivery Method Room Air Weight: 183.478 kg Body Mass Index (BMI) 49.4 Finger Stick Blood Glucose 166 Intake and Output for Last 24 Hours 08/06/19 08/07/19 08/08/19 23:59 23:59 23:59 Intake Total 600 / 600 360 / 360 Output Total 700 / 700 Balance -100 / -100 360 / 360 General: Alert, Oriented x3 HEENT: Atraumatic Oral: Moist Mucosa Neck: Supple Lungs: Clear to auscultation Cardiovascular: Normal S1, Normal S2 Abdomen: Bowel Sounds Present, Soft, Non Tender Extremities: Edema - 2+ RLE, s/p LBKA Microbiology Past 72 Hours 08/05/19 21:30 Stool Stool Occult Blood (CHERRY) - Final Occult Blood Positive Laboratory Results 08/07/19 13:12: POC Glucose 202 H 08/07/19 16:07: POC Glucose 116 H 08/07/19 21:41: POC Glucose 139 H 08/08/19 06:34: POC Glucose 144 H 08/08/19 06:42: Sodium 136, Potassium 4.9, Chloride 105, Carbon Dioxide 25.0, BUN 38 H, Creatinine 2.27 H, Estim Creat Clear Calc 41.43, Est GFR (MDRD) Af Amer 38 L, Est GFR (MDRD) Non-Af 31 L, BUN/Creatinine Ratio 16.7, Glucose 146 H, Calcium 8.8, Phosphorus 4.2, Albumin 2.2 L Current Medications Acetaminophen (Tylenol) 1,000 mg PO Q6H PRN PRN PRN Reason: Pain Score 1-3/10 Last Admin: 07/30/19 07:11 Dose: 1,000 mg Documented by: Amlodipine Besylate (Norvasc) 10 mg PO DAILY [facility] Last Admin: 08/08/19 06:25 Dose: 10 mg Documented by: Bisacodyl (Dulcolax) 10 mg RECTAL DAILY PRN PRN PRN Reason: Constipation Calamine/Phenol (Calmoseptine Ointment) 1 applic TOPICAL BID [facility]; Protocol Last Admin: 08/08/19 06:26 Dose: 1 applicatio Documented by: Dextrose (D50w Syringe) 0 gm IV X1 PRN; Protocol PRN Reason: Hypoglycemia Glucagon () 1 mg IM .X1 PRN PRN Reason: Hypoglycemia Hydralazine HCl (Apresoline) 50 mg PO BID [facility] Last Admin: 08/08/19 06:25 Dose: 50 mg Documented by: Insulin Human Lispro (Humalog Kwikpen ([facility])) 30 unit SC TIDCM [facility] Last Admin: 08/08/19 07:59 Dose: Not Given Documented by: Insulin Human NPH (Humulin N ([facility])) 40 units SC QHS [facility] Last Admin: 08/07/19 22:52 Dose: Not Given Documented by: Lactobacillus Acidophilus (Acidophilus) 1 tablet PO BID [facility] Last Admin: 08/08/19 06:25 Dose: 1 tablet Documented by: Metoprolol Succinate (Toprol Xl (Beta Marshall)) 50 mg PO DAILY [facility] Last Admin: 08/08/19 06:25 Dose: 50 mg Documented by: Nutritional Formula (Vu - [place] Flavor) [facility] Last Admin: 08/08/19 07:59 Dose: Not Given Documented by: Nystatin (Mycostatin Powder) 1 applic TOPICAL BID [facility]; Protocol Last Admin: 08/08/19 06:25 Dose: 1 applicatio Documented by: Oxycodone HCl (Oxyir) 5 mg PO Q4H PRN PRN PRN Reason: Pain Score 4-10/10 Last Admin: 07/22/19 20:32 Dose: 5 mg Documented by: Polyethylene Glycol (Miralax) 17 gm PO DAILY [facility] Last Admin: 08/08/19 06:26 Dose: Not Given Documented by: Polysaccharide Iron Complex (Ferrex 150) [facility] Last Admin: 08/08/19 07:57 Dose: 150 mg Documented by: Senna/Docusate Sodium (Senokot-S, Susy-Colace) 2 tablet PO BID [facility] Last Admin: 08/08/19 06:26 Dose: Not Given Documented by: Medical Necessity - Tobacco Use Smoking Status: Never smoker Tobacco Use: Non-smoker Assessment/Plan All Active Problems Debility (Acute) Acute on chronic kidney failure (Acute) MRSA (methicillin resistant Staphylococcus aureus) (Acute) Diabetic foot infection (Acute) Assessment: JOANNA 2/2 vanco nephrotoxicity. Peak serum creatinine was 5.8 with gradual improvement CKD 3. Baseline SCr is 1.5 to 2. Probable diabetic nephropathy HTN Anemia iron deficiency diabetic foot s/p L BKA Plan: Serum creatinine 2.27, which is better. Keep I=O. Continue current BP medications. Avoid ACEi/ARB for now due to JOANNA. Will reassess its use as outpt. Continue iron for iron deficiency anemia. Will visit periodically while in the rehab. Will arrange follow-up scheduled with Dr. Alfaro on discharge.
[2019-08-08 11:25] LABS: Bedside Glucose 190 mg/dL (70-110)
--- NOTE | 2019-08-08 12:51 | NURSING ---
Pt has refused both AM and lunch time insulin. Pt has not ate yet today and only ordered milk for lunch.
[2019-08-08 14:57] VITALS: BP 130/49; PULSE 54; RESP 20; TEMP 37.2; O2SAT 95
[2019-08-08 17:05] LABS: Bedside Glucose 175 mg/dL (70-110)
[2019-08-08 17:40] VITALS: BP 138/58; PULSE 61
--- NOTE | 2019-08-08 17:55 | NURSING ---
Pt stated he did not want insulin at this time.
[2019-08-08 21:30] LABS: Bedside Glucose 166 mg/dL (70-110)
[2019-08-08 22:21] VITALS: PULSE 52; RESP 16; O2SAT 93
[2019-08-09 04:00] VITALS: BP 141/57; PULSE 70; RESP 18; TEMP 37.1; O2SAT 94
[2019-08-09 06:21] LABS: Bedside Glucose 157 mg/dL (70-110)
[2019-08-09 06:22] VITALS: BP 141/57; PULSE 70
[2019-08-09] MEDS: hydrALAZINE 50 MG Tablet PO (06:22)
[2019-08-09] MEDS: amLODIPine 10 MG Tablet PO (06:23)
[2019-08-09 06:24] VITALS: BP 141/57; PULSE 70
[2019-08-09] MEDS: Metoprolol(XL)Succ 50 MG Tablet PO (06:24)
--- NOTE | 2019-08-09 08:26 | NURSING ---
PT REFUSED INSULIN AND TO EAT.
[2019-08-09 10:00] VITALS: PULSE 84; RESP 18; O2SAT 96
--- NOTE | 2019-08-09 10:53 | CASEMGMT ---
Addendum entered by Tiesha Cummins 08/09/19 15:03: [facility] unable to accept pt after received clinicals. No [facility] agency is able to accept pt. APS aware. Wound vac is ordered. Addendum entered by Tiesha Cummins 08/09/19 12:32: [facility] unable to accept[facility] Referred to [facility] - only able to accept PT/OT/SN. No SW. APS in [facility] to follow. Original Note: Social Work [facility] could not accept pt. Referral made to [facility] - they are unable to accept pt. Referral made to [facility]. Referral made to APS. CHRISTIN FritzW
[2019-08-09 11:26] VITALS: BP 138/64; PULSE 76; RESP 18; TEMP 37; O2SAT 96
[2019-08-09 12:12] VITALS: BP 138/64; PULSE 76; RESP 18; TEMP 37; O2SAT 96
--- NOTE | 2019-08-10 10:52 | CASEMGMT ---
Addendum entered by Tiesha Cummins 08/10/19 16:06: [facility] nor [facility] can accept pt. When notified pt, pt stated he fell again and call the ambulance to bring him back to the hospital. Hand-off given to ED SW. Original Note: Social Work Pt contacted SW stated he is not thriving at home like he thought - he almost fell out of his chair twice last night. Pt requested to admit to SNF. Pt agreeable for SW to refer to [facility]. Referral made. Tiesha Cummins, CHRISTIN HULLW
== END 2019-08-09 11:45 | disposition home or self-care (01) | DRG 560 ==
PROVIDERS: Internal Medicine Nephrology; Admitting Provider Family Medicine Geriatric Medicine; PCP Family Medicine; Visit Provider Family Medicine Geriatric Medicine
DX: Z47.81 Encounter for orthopedic aftercare following surgical amputation (principal); N17.9 Acute kidney failure, unspecified; M86.672 Other chronic osteomyelitis, left ankle and foot; Z68.42 Body mass index [BMI] 45.0-49.9, adult; Z89.512 Acquired absence of left leg below knee; E11.51 Type 2 diabetes mellitus with diabetic peripheral angiopathy without gangrene; E11.42 Type 2 diabetes mellitus with diabetic polyneuropathy; E11.22 Type 2 diabetes mellitus with diabetic chronic kidney disease; I12.9 Hypertensive chronic kidney disease with stage 1 through stage 4 chronic kidney disease, or unspecified chronic kidney disease; E78.5 Hyperlipidemia, unspecified; D50.9 Iron deficiency anemia, unspecified; E66.9 Obesity, unspecified; N18.3 Chronic kidney disease, stage 3 (moderate); E11.69 Type 2 diabetes mellitus with other specified complication; T36.8X5A Adverse effect of other systemic antibiotics, initial encounter; Z86.14 Personal history of Methicillin resistant Staphylococcus aureus infection; D63.8 Anemia in other chronic diseases classified elsewhere
CPT/HCPCS: 36415; 74018; 80048; 80069; 82274; 82784; 82962; 84165; 85014; 85018; 85025; 86334; 87205; 87635; 97110; 97162; 97166; 97530; 97535; 97802; G2023; U0002

== ENCOUNTER 2019-08-10 15:37 | Emergency (ER) | payer MEDICARE, MEDICAID, SELFPAY ==
[2019-07-20 18:38] VITALS: BMI 49.4
[2019-08-10 15:38] VITALS: BP 150/68; PULSE 84; RESP 18; TEMP 36.6; O2SAT 97; BMI 47.9
--- NOTE | 2019-08-10 16:05 | EKG12_ITS ---
Test Reason : OTHER, PAIN Blood Pressure : / mmHG Vent. Rate : 081 BPM Atrial Rate : 081 BPM P-R Int : 176 ms QRS Dur : 102 ms QT Int : 394 ms P-R-T Axes : 021 -17 012 degrees QTc Int : 457 ms Normal sinus rhythm Incomplete right bundle branch block Borderline ECG Confirmed by LACI AQUINO ([id number]), film editor supervisor PADDY ZARATE ([id number]) on 08/15/2019 10:53:40 AM Referred By: JUANITA Confirmed By:LACI AQUINO
--- NOTE | 2019-08-10 16:24 | CM.ED ---
Social Work Consult: Placement Informant: Dr. Riley/nursing staff. Met with patient in room. Patient stating to not be able to care for self at home. Patient discharged from [facility] yesterday with hopes of being able to care for self at home. Patient lives alone and is reporting to have discovered that patient is not able to care for self. Per chart review, it was not recommended for patient to discharge to home, but instead to an extended care facility. APS was called with concerns of patient being able to care for self. Patient stating to now be aware that patient needs to go to a usp and is requesting for a referral to be made to [facility] first and [facility] second. Telephone call to [facility] Melani Wilkerson. Unable to accept today due to end of business day. [facility] and they are able to review clinicals. Clinical information faxed. Pending review. Updated Dr. Riley on above information. Dr. Riley agreeable with plan. Nursing staff updated as well. Charlee Anthony MSW, CARL
--- NOTE | 2019-08-10 16:51 | ED.DCSUM_ITS ---
History of Present Illness Chief Complaint: Other, Pain/Inj Informant: Patient Onset: Days Context: Gradual Onset Narrative: Patient is a 64-year-old male that was discharged from TCU yesterday. Patient thought he was going home with home health care but turns out he did have home health care. Patient recently had a left BKA secondary to diabetic foot infection. In addition patient had acute renal failure which has been improving. Patient was apparently offered jail/rehab placement but had declined while he was in the TCU. Patient states he got home and is having a very hard time transferring himself and he can barely even make it to the bathroom. He was unable to take his medications today because he can get home. He states he is only had a small amount of food to eat today. He is now requesting placement. He admits to being upset about the situation but denies any other complaints at this time. He states he feels fine. He is had good urine output overnight per the patient. He states his urine has been light yellow. He denies any fever or chills. He denies any chest pain, cough, shortness of breath, nausea, vomiting or abdominal pain. Patient has a wound VAC on his left lower extremity which is well to be changed today. He states he is had good drainage and output from it. Past Medical History - Allergies and Home Meds Allergies/Adverse Reactions: Allergies ciprofloxacin [From Cipro] Allergy (Verified 08/10/19 15:40) Rash he has tolerated oral cipro in the past levofloxacin [From Levaquin] Allergy (Verified 08/10/19 15:40) Hives morphine Allergy (Verified 08/10/19 15:40) Hives Penicillins Allergy (Verified 08/10/19 15:40) Hives silver Allergy (Verified 08/10/19 15:40) Rash Skin márquez and itches, rash Primary Care Physician: Ac Felix MD [Primary Care Provider] - Past Medical History: - - Chronic kidney disease, diabetes mellitus, hyperte nsion, hyperlipidemia, history of MRSA, chronic wounds Surgical History: - - Bilateral great toe amputations, partial left 5th toe amputation, heel debridements and calcaneus bone biopsy, Left below the knee amputation. Smoking Status: Never smoker - Family History Maternal Family History: Reports: Diabetes, Hypertension Paternal Family History: Reports: - - from being hit by car Review of Systems General: Denies: Chills, Fever, Sweats Eyes: Denies: Visual changes - bilaterally, Diplopia ENT: Denies: Rhinorrhea, Sore throat Cardiovascular: Denies: Chest pain, Palpitations Respiratory: Denies: Dyspnea, Cough, Dyspnea on exertion Gastrointestinal: Denies: Abdominal pain, Nausea, Vomiting, Diarrhea, Melena, Hematochezia Genitourinary: Denies: Dysuria, Hematuria, Frequency Musculoskeletal: Reports: Swelling - Chronic lymphedema unchanged. Denies: Back pain, Extremity Pain Skin: Reports: Wounds - Wound with wound VAC on left lower extremity. Denies: Rash Neurological: Denies: Headache, Weakness, Numbness Physical Exam Vital Signs/Narrative: Vital Signs Temp Pulse Resp BP Pulse Ox 08/10/19 15:38 98 F 84 18 150/68 H 97 Inital Vital Signs reviewed: Yes General: Well nourished, Well developed, Obese, - - Sitting in his motorized wheelchair in no acute distress Head: Normocephalic, Atraumatic Eyes: Perrl, EOMI ENT: Moist mucous membranes, No rhinorrhea Neck: Supple, Nontender Cardiovascular: Regular rate, Regular rhythm, No murmurs Respiratory: No distress, CTA bilaterally, Chest nontender Abdomen: Soft, Nontender, Nondistended, Normal bowel sounds Back: Nontender, Normal Inspection Extremities: Nontender, - - Left BKA Skin: Normal color, No rash, - - Wound VAC on left lower extremity nub, chronic lymphedema of the lower extremities with wrapping in place bilaterally Neurological: Alert, Oriented x3, Cranial nerves II-XII grossly intact, Normal Strength, Normal Sensation Psychological: Normal affect, Normal Mood Diagnostic/Tx/Re-eval - Rhythm Strip Rhythm Strip: Sinus Rhythm Rate: 81 Ectopy: None - Medical Decision Making EKG Normal sinus rhythm at a rate of 81 Incomplete right bundle branch block Left axis deviation Nonspecific T wave inversion in lead III Patient is evaluated for difficulty at home after discharge from TCU yesterday. He appears nontoxic and in no acute distress. His visit to the ER is purely for social issues. Social work is aware of the patient and working on finding him placement for nursing facility. Apparently patient was declined by 5 different home health care services and had refused placement while he was in the TCU. Patient is now agreeable with placement and does not feel safe living at home alone which I think is appropriate I initially ordered an EKG and lab work for screening versus anticipation of requiring an overnight admission if we cannot obtain placement today. Patient is accepted at [facility] so lab work is canceled. Patient is stable at time of disposition. ED Disposition - Plan for ED Patient: Disposition: Home or Assisted Living Diagnosis: Debility Referrals: Ac Felix MD [Primary Care Provider] - Additional Instructions: Please follow-up with wound care as needed or scheduled.
--- NOTE | 2019-08-10 16:52 | CM.ED ---
Social Work Telephone call from [facility]. They are able to accept. PASRR completed in [facility]. Updated patient, Dr. Riley and nursing staff. [place] to facilitate transportation. Charlee Anthony MSW, CARL
--- NOTE | 2019-08-10 17:04 | NURSING ---
[facility] CARE FOR TRANSPORT.
--- NOTE | 2019-08-10 17:08 | CM.ED ---
Social Work Attempted to updated [facility] on patient disposition and plan, after business hours, no voicemail option for non-emergencies. Faxed discharge paperwork to [facility]. Charlee WALLER, CARL
--- NOTE | 2019-08-10 17:23 | ED.RN ---
pt felt his glucose was low, checked and is 169. sandwich, water, and cookies given.
[2019-08-10 17:25] LABS: Bedside Glucose 169 mg/dL (70-110)
[2019-08-10 18:23] VITALS: BP 165/65; PULSE 90; RESP 17; TEMP 36.8; O2SAT 98
== END 2019-08-10 18:31 | disposition skilled nursing facility (03) ==
PROVIDERS: Emergency Provider Emergency Medicine; PCP Family Medicine
DX: R53.83 Other fatigue (principal); Z89.512 Acquired absence of left leg below knee
CPT/HCPCS: 82962; 93005; 99283

== ENCOUNTER 2019-09-12 13:00 | Outpatient (RCR) | payer MEDICARE, MEDICAID, SELFPAY ==
[2019-08-29 09:32] VITALS: BP 103/76; PULSE 72; RESP 22; TEMP 35.9; BMI 47.9
[2019-08-29 10:00] LABS: Bedside Glucose 170 mg/dL (70-110)
--- NOTE | 2019-08-29 14:41 | PN.PCM_ITS ---
Type of Wound Date of Service: 08/29/19 Chief Complaint: Open surgical wound anterior aspect left BKA stump. History of Wound: Surgery 07/15/19 - Left below knee amputation. Wound care - VAC initially and now saline dressing at senior care. Operative culture - not done. Pathology - negative for osteomyelitis. Prealbumin from 07/16/19 was 13.0. Encourage nutritional supplementation with protein to help the healing process. HgbA1c from 06/29/19 was 8.2 (improved from 9.4 on 05/04/19). Today he denies fever. His appetite is ok. He is also being seen by Dr. Hernández for his right heel ulcer with chronic osteomyelitis, right plantar heel ulcer, and right forefoot ulcer. It is being treated with Collagen Hydrogel. Progress of Wound: Improved. - Physical Exam Vital Signs Temp Pulse Resp BP 96.7 F L 72 22 H 103/76 08/29/19 09:32 08/29/19 09:32 08/29/19 09:32 08/29/19 09:32 Wound Measurements and Assessment WC - Nurse 1 - General Ulcer Measurement Start: 08/29/19 09:32 Freq: Status: Active Protocol: Activity Type Activity Date Activity User E-Sign Co-Sign Detail Recorded Client Recorded Date Recorded By Document 08/29/19 09:32 DL [id number] 08/29/19 09:58 DL 08/29/19 09:32 Wound Center Nurse 1 [Ulcer Assessment] #35 L Stump -Current Size (cm) - Length 3.4 -Current Size (cm) - Width 5.1 -Current Size (cm) - Depth 0.3 -Total Square Cm 17.34 -Photo Taken Yes -Exudate Amt Small -Exudate Type Serosanguineous -Wound Margin Distinct, Outline Attached -Granulation Amt Large (67-100%) -Granulation Quality Red -Necrosis Amt Small (1-33%) -Necrotic Tissue Type Adherent Slough -Structure Exposed N/A -Texture (Susy-wound Skin Appearance) Scarring -Moisture (Susy-wound Skin Appearance Dry/Scaly ) -Color (Susy-wound Skin Appearance) Hemosiderin Staining -Temperature (Susy-wound Skin No Abnormality Appearance) (Pt Warm) -Tenderness on Palpation (Susy-wound No Skin Appearance) -Ulcer Cleansing Wound Cleanser -Foul Odor after Cleansing No -Anesthetic Used 4% Lidocaine Solution #32- R HEEL -Current Size (cm) - Length 0.8 -Current Size (cm) - Width 1.4 -Current Size (cm) - Depth 0.1 -Total Square Cm 1.12 -Photo Taken Yes -Exudate Amt Small -Exudate Type Serosanguineous -Wound Margin Thickened -Granulation Amt Large (67-100%) -Granulation Quality Red -Necrosis Amt Small (1-33%) -Necrotic Tissue Type Adherent Slough -Structure Exposed N/A -Texture (Susy-wound Skin Appearance) Scarring -Moisture (Susy-wound Skin Appearance Dry/Scaly ) -Color (Susy-wound Skin Appearance) Hemosiderin Staining -Temperature (Susy-wound Skin No Abnormality Appearance) (Pt Warm) -Tenderness on Palpation (Susy-wound No Skin Appearance) -Ulcer Cleansing Wound Cleanser -Foul Odor after Cleansing No -Anesthetic Used 4% Lidocaine Solution 27-right 2nd toe -Current Size (cm) - Length 0.1 -Current Size (cm) - Width 0.1 -Current Size (cm) - Depth 0.1 -Total Square Cm 0.01 -Photo Taken Yes -Exudate Amt None Present -Wound Margin Thickened -Granulation Amt None Present (0 %) -Slough/Fibrin No -Necrosis Amt Large (67-100%) -Necrotic Tissue Type Eschar -Structure Exposed N/A -Texture (Susy-wound Skin Appearance) Scarring -Moisture (Susy-wound Skin Appearance Dry/Scaly ) -Color (Susy-wound Skin Appearance) Hemosiderin Staining -Temperature (Susy-wound Skin No Abnormality Appearance) (Pt Warm) -Tenderness on Palpation (Susy-wound No Skin Appearance) -Ulcer Cleansing Wound Cleanser -Foul Odor after Cleansing No -Anesthetic Used 4% Lidocaine Solution #21 rt plantar medial foot -Current Size (cm) - Length 0.1 -Current Size (cm) - Width 0.1 -Current Size (cm) - Depth 0.1 -Total Square Cm 0.01 -Photo Taken Yes -Exudate Amt None Present -Wound Margin Flat & Intact -Granulation Amt Large (67-100%) -Granulation Quality [place] -Necrosis Amt None Present (0 %) -Necrotic Tissue Type Adherent Slough -Structure Exposed N/A -Texture (Susy-wound Skin Appearance) Scarring -Moisture (Susy-wound Skin Appearance Dry/Scaly ) -Color (Susy-wound Skin Appearance) Hemosiderin Staining -Temperature (Susy-wound Skin No Abnormality Appearance) (Pt Warm) -Tenderness on Palpation (Susy-wound No Skin Appearance) -Ulcer Cleansing Wound Cleanser -Foul Odor after Cleansing No -Anesthetic Used 4% Lidocaine Solution [Edema Assessment] -Right Calf (cm) 42.5 -Right Ankle (cm) 26.7 WC - Nurse 2 - General Ulcer CM Notes Start: 08/29/19 09:32 Freq: Status: Active Protocol: Activity Type Activity Date Activity User E-Sign Co-Sign Detail Recorded Client Recorded Date Recorded By Document 08/29/19 10:21 NORRIS [id number] 08/29/19 10:23 NORRIS 08/29/19 10:21 Wound Center Nurse 2 [Procedure/Treatment] #35 L Stump -Time 10:22 -Correct Patient Yes -Correct Side, Site, Position Yes -Correct Procedure Yes -Procedure Performed Yes -Type of Procedure Debridement -Clinical Debridement Subcutaneous -Post Debridement Size (cm) - Length 3.5 -Post Debridement Size (cm) - Width 5.1 -Post Debridement Size (cm) - Depth 0.3 -Total Square Cm 17.85 -Wound/Ulcer Outcome Not Healed -Ulcer Cleansing Rinsed/ Irrigated with Saline -Foul Odor after Cleansing No -Bioengineered Tissue No -Bleeding Controlled with Pressure -Offloading No -Treatment Response Procedure Tolerated Well #32- R HEEL -Correct Patient No -Correct Side, Site, Position No -Correct Procedure No -Procedure Performed No -Wound/Ulcer Outcome Not Healed 27-right 2nd toe -Correct Patient No -Correct Side, Site, Position No -Correct Procedure No -Procedure Performed No -Wound/Ulcer Outcome Not Healed #21 rt plantar medial foot -Correct Patient No -Correct Side, Site, Position No -Correct Procedure No -Procedure Performed No -Wound/Ulcer Outcome Not Healed [See Physician Procedure note for Specifics] Pain Scale: 0-10 Numeric [Pain] -Is Patient Pain Free? Yes Debridement Note Post-Debridement Measurements/Treatment - Nurse 2 - General Ulcer CM Notes Start: 08/29/19 09:32 Freq: Status: Active Protocol: Activity Type Activity Date Activity User E-Sign Co-Sign Detail Recorded Client Recorded Date Recorded By Document 08/29/19 10:21 NORRIS [id number] 08/29/19 10:23 JF 08/29/19 10:21 Wound Center Nurse 2 #35 L Stump -Time 10:22 -Correct Patient Yes -Correct Side, Site, Position Yes -Correct Procedure Yes -Procedure Performed Yes -Type of Procedure Debridement -Clinical Debridement Subcutaneous -Post Debridement Size (cm) - Length 3.5 -Post Debridement Size (cm) - Width 5.1 -Post Debridement Size (cm) - Depth 0.3 -Total Square Cm 17.85 -Wound/Ulcer Outcome Not Healed -Ulcer Cleansing Rinsed/ Irrigated with Saline -Foul Odor after Cleansing No -Bioengineered Tissue No -Bleeding Controlled with Pressure -Offloading No -Treatment Response Procedure Tolerated Well #32- R HEEL -Correct Patient No -Correct Side, Site, Position No -Correct Procedure No -Procedure Performed No -Wound/Ulcer Outcome Not Healed 27-right 2nd toe -Correct Patient No -Correct Side, Site, Position No -Correct Procedure No -Procedure Performed No -Wound/Ulcer Outcome Not Healed #21 rt plantar medial foot -Correct Patient No -Correct Side, Site, Position No -Correct Procedure No -Procedure Performed No -Wound/Ulcer Outcome Not Healed Pain Scale: 0-10 Numeric Is Patient Pain Free? Yes Wound debrided: #35 Anterior aspect left BKA stump. Laterality: Left Wound Grade/Stage: 2. Type of Debridement: Excisional debridement Anesthesia Used: 4% Lidocaine Solution Depth: Down to and including healthy tissue, in the subcutaneous layer Percentage of wound debrided: 100 Instrument Used: 5mm curette Tissue Removed: subcutaneous tissue. Severity: Fat Layer Exposed Amount of bleeding with debridement: Mild Bleeding Controlled with: Pressure Patient tolerated procedure well Assessment/Plan Assessment: 1. 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 2. Osteomyelitis. 3. Acute kidney injury from recent medication (Vancomycin). 4. s/p TMA left foot. 5. Lymphedema lower extremities. 6. Venous insufficiency lower extremities. 7. Obesity. 8. MRSA. 9. s/p left below knee amputation. 10. Right forefoot medial plantar ulcer. 11. Right heel ulcer stable. 12. Peripheral vacular disease. Plan: For the anterior aspect left BKA stump, will begin Fibracol dressing changes daily. He states he cannot use Silver dressings. He is currently off his antibiotics. For the right foot and heel ulcers, no debridement was done. Continue Collagen Hydrogel daily. Prealbumion from 07/16/19 was 13.0. Encourage nutritional supplementation with protein to help the healing process. HgbA1c from 06/29/19 was 8.2 which is improved from 9.4 on 05/04/19. Followup 2 weeks. Will remove the stump sutures at that time. [id number]: [id number] Global Visit - ICD-10 - Z48.89, E11.628, T87.89, M86.9, N17.9, Z89.432, I89.0, I87.2, A49.02, E66.9
== END 2019-09-13 23:59 ==
LOC: WC 13:00
PROVIDERS: PCP Family Medicine; Visit Provider Surgery
DX: I87.2 Venous insufficiency (chronic) (peripheral) (principal); N17.9 Acute kidney failure, unspecified; I89.0 Lymphedema, not elsewhere classified; E66.9 Obesity, unspecified; Z89.512 Acquired absence of left leg below knee; Z86.14 Personal history of Methicillin resistant Staphylococcus aureus infection; M86.671 Other chronic osteomyelitis, right ankle and foot; L97.419 Non-pressure chronic ulcer of right heel and midfoot with unspecified severity; T87.9 Unspecified complications of amputation stump; I73.9 Peripheral vascular disease, unspecified
CPT/HCPCS: 11042; 82962

== ENCOUNTER 2019-11-14 08:30 | Outpatient (RCR) | payer MEDICARE, MEDICAID, SELFPAY ==
[2019-08-29 09:32] VITALS: BMI 47.9
[2019-09-14 00:37] VITALS: BP 103/76; PULSE 72; RESP 22; TEMP 35.9
[2019-10-24 08:27] VITALS: BP 167/68; PULSE 75; RESP 16; TEMP 36.1; BMI 47.9
--- NOTE | 2019-10-24 15:37 | PN.PCM_ITS ---
(1) Nonhealing amputation stump Status: Chronic Code(s): T87.89 - Other complications of amputation stump (2) Ulcer of right lower extremity with fat layer exposed Status: Chronic Code(s): L97.912 - Non-pressure chronic ulcer of unspecified part of right lower leg with fat layer exposed (3) Ulcer of right heel and midfoot with fat layer exposed Status: Chronic Code(s): L97.412 - Non-pressure chronic ulcer of right heel and midfoot with fat layer exposed (4) Debility Status: Chronic Code(s): R53.81 - Other malaise (5) Body mass index (BMI) 50.0-59.9, adult Status: Chronic Code(s): Z68.43 - Body mass index (BMI) 50.0-59.9, adult (6) Venous insufficiency Status: Chronic Code(s): I87.2 - Venous insufficiency (chronic) (peripheral) (7) Peripheral vascular disease Status: Chronic Code(s): I73.9 - Peripheral vascular disease, unspecified (8) Diabetes mellitus with polyneuropathy Status: Chronic Qualifiers: Code(s): E11.42 - Type 2 diabetes mellitus with diabetic polyneuropathy (9) Diabetes mellitus Status: Chronic Code(s): E11.9 - Type 2 diabetes mellitus without complications Type of Wound Date of Service: 10/24/19 Chief Complaint: Open surgical wound anterior aspect left BKA stump. History of Wound: Surgery 07/15/19 - Left below knee amputation. Wound care - VAC initially. Fibrocol to the opened areas. Operative culture - not done. Pathology - negative for osteomyelitis. Prealbumin from 07/16/19 was 13.0. Encourage nutritional supplementation with protein to help the healing process. HgbA1c from 06/29/19 was 8.2 (improved from 9.4 on 05/04/19). Today he denies fever. His appetite is ok. He is also being seen by Dr. Hernández for his right heel ulcer with chronic osteomyelitis, right plantar heel ulcer, and right forefoot ulcer. It is being treated with Collagen Hydrogel. Progress of Wound: Stable. - Physical Exam Vital Signs Temp Pulse Resp BP 96.9 F L 75 16 167/68 H 10/24/19 08:27 10/24/19 08:27 10/24/19 08:27 10/24/19 08:27 General: Alert, Oriented x3 HEENT: Atraumatic Oral: Moist Mucosa Lungs: Normal air movement Cardiovascular: Regular rate Abdomen: Obese Extremities: Edema Skin: Ulcer/ Wound - Left anterior stump ulcer. Right dorsal second toe ulcer, right heal cluster ulcers and right medial plantar foot. He has an increase in flaky, dry skin over the right medial foot and and there is increased dry, flaking skin between toes. Wound Measurements and Assessment WC - Nurse 1 - General Ulcer Measurement Start: 10/24/19 08:25 Freq: Status: Active Protocol: Activity Type Activity Date Activity User E-Sign Co-Sign Detail Recorded Client Recorded Date Recorded By Document 10/24/19 08:27 [facility] [id number] 10/24/19 08:43 [facility] 10/24/19 08:27 Wound Center Nurse 1 [Ulcer Assessment] #35 L Stump -Combined with other wound No -Current Size (cm) - Length 1.5 -Current Size (cm) - Width 2.7 -Current Size (cm) - Depth 0.1 -Total Square Cm 4.05 -Date of Last Picture (Recall this 10/24/19 field) -Photo Taken Yes -Epithelialization None Present -Tunneling No -Undermining/Tunneling No -Circular Undermining No -Exudate Amt Small -Exudate Type Serosanguineous -Wound Margin Flat & Intact -Granulation Amt Medium (34-66%) -Granulation Quality Red -Slough/Fibrin Yes -Necrosis Amt Medium (34-66%) -Necrotic Tissue Type Adherent Slough -Texture (Susy-wound Skin Appearance) Assessed, Scarring -Moisture (Susy-wound Skin Appearance Assessed,Dry/ ) Scaly -Color (Susy-wound Skin Appearance) Assessed -Temperature (Susy-wound Skin No Abnormality Appearance) (Pt Warm) -Tenderness on Palpation (Susy-wound No Skin Appearance) -Ulcer Cleansing soapy water -Foul Odor after Cleansing No -Anesthetic Used 4% Lidocaine Solution #36- R HEEL -Combined with other wound No -Current Size (cm) - Length 0.1 -Current Size (cm) - Width 0.1 -Current Size (cm) - Depth 0.1 -Total Square Cm 0.01 -Date of Last Picture (Recall this 10/24/19 field) -Photo Taken Yes -Tunneling No -Undermining/Tunneling No -Circular Undermining No -Exudate Amt Small -Exudate Type Serosanguineous -Wound Margin Flat & Intact -Granulation Amt Medium (34-66%) -Granulation Quality Red -Slough/Fibrin Yes -Necrosis Amt Small (1-33%) -Necrotic Tissue Type Adherent Slough -Texture (Susy-wound Skin Appearance) Assessed, Scarring -Moisture (Susy-wound Skin Appearance Assessed,Dry/ ) Scaly -Color (Susy-wound Skin Appearance) Assessed -Temperature (Susy-wound Skin No Abnormality Appearance) (Pt Warm) -Tenderness on Palpation (Susy-wound No Skin Appearance) -Ulcer Cleansing soapy water -Foul Odor after Cleansing No -Anesthetic Used 4% Lidocaine Solution #37-right 2nd toe -Combined with other wound No -Current Size (cm) - Length 1.1 -Current Size (cm) - Width 1.2 -Current Size (cm) - Depth 0.1 -Total Square Cm 1.32 -Date of Last Picture (Recall this 10/24/19 field) -Photo Taken Yes -Tunneling No -Undermining/Tunneling No -Circular Undermining No -Exudate Amt Small -Exudate Type Serosanguineous -Wound Margin Flat & Intact -Granulation Amt Medium (34-66%) -Granulation Quality Red -Slough/Fibrin Yes -Necrosis Amt Medium (34-66%) -Necrotic Tissue Type Adherent Slough -Texture (Susy-wound Skin Appearance) Assessed, Scarring -Moisture (Susy-wound Skin Appearance Assessed,Dry/ ) Scaly -Color (Susy-wound Skin Appearance) Assessed -Temperature (Susy-wound Skin No Abnormality Appearance) (Pt Warm) -Tenderness on Palpation (Susy-wound No Skin Appearance) -Ulcer Cleansing soapy water -Foul Odor after Cleansing No -Anesthetic Used 4% Lidocaine Solution #38 rt plantar medial foot -Combined with other wound No -Current Size (cm) - Length 0.8 -Current Size (cm) - Width 1.1 -Current Size (cm) - Depth 0.1 -Total Square Cm 0.88 -Date of Last Picture (Recall this 10/24/19 field) -Photo Taken Yes -Tunneling No -Undermining/Tunneling No -Circular Undermining No -Exudate Amt Small -Exudate Type Serosanguineous -Wound Margin Flat & Intact -Granulation Amt Medium (34-66%) -Granulation Quality Red -Slough/Fibrin Yes -Necrosis Amt Medium (34-66%) -Necrotic Tissue Type Adherent Slough -Texture (Susy-wound Skin Appearance) Assessed, Scarring -Moisture (Susy-wound Skin Appearance Assessed,Dry/ ) Scaly -Color (Susy-wound Skin Appearance) Assessed -Temperature (Susy-wound Skin No Abnormality Appearance) (Pt Warm) -Tenderness on Palpation (Susy-wound No Skin Appearance) -Ulcer Cleansing soapy water -Foul Odor after Cleansing No -Anesthetic Used 4% Lidocaine Solution [Edema Assessment] -Lower Limb Edema Present Yes -Right Calf (cm) 51.4 -Right Ankle (cm) 31.4 WC - Nurse 2 - General Ulcer CM Notes Start: 10/24/19 08:25 Freq: Status: Active Protocol: Activity Type Activity Date Activity User E-Sign Co-Sign Detail Recorded Client Recorded Date Recorded By Document 10/24/19 08:58 NORRIS [id number] 10/24/19 09:05 NORRIS 10/24/19 08:58 Wound Center Nurse 2 [Procedure/Treatment] #35 L Stump -Time 08:58 -Correct Patient Yes -Correct Side, Site, Position Yes -Correct Procedure Yes -Procedure Performed Yes -Type of Procedure Debridement -Clinical Debridement Subcutaneous -Post Debridement Size (cm) - Length 2.1 -Post Debridement Size (cm) - Width 3.5 -Post Debridement Size (cm) - Depth 0.2 -Total Square (cm) 7.35 -Wound/Ulcer Outcome Not Healed -Ulcer Cleansing Rinsed/ Irrigated with Saline -Foul Odor after Cleansing No -Bioengineered Tissue No -Bleeding Controlled with Pressure -Offloading No -Treatment Response Procedure Tolerated Well #36- R HEEL -Time 09:02 -Correct Patient Yes -Correct Side, Site, Position Yes -Correct Procedure Yes -Procedure Performed Yes -Type of Procedure Debridement -Clinical Debridement Subcutaneous -Post Debridement Size (cm) - Length 6.0 -Post Debridement Size (cm) - Width 1.2 -Post Debridement Size (cm) - Depth 0.2 -Total Square (cm) 7.20 -Ulcer Cleansing Rinsed/ Irrigated with Saline -Foul Odor after Cleansing No -Bioengineered Tissue No -Bleeding Controlled with Pressure -Offloading No -Treatment Response Procedure Tolerated Well #37-right 2nd toe -Time 08:59 -Correct Patient Yes -Correct Side, Site, Position Yes -Correct Procedure Yes -Procedure Performed Yes -Type of Procedure Debridement -Clinical Debridement Subcutaneous -Post Debridement Size (cm) - Length 1.5 -Post Debridement Size (cm) - Width 1.0 -Post Debridement Size (cm) - Depth 0.2 -Total Square (cm) 1.50 -Wound/Ulcer Outcome Not Healed -Ulcer Cleansing Rinsed/ Irrigated with Saline -Foul Odor after Cleansing No -Bioengineered Tissue No -Bleeding Controlled with Pressure -Offloading No -Treatment Response Procedure Tolerated Well #38 rt plantar medial foot -Time 09:00 -Correct Patient Yes -Correct Side, Site, Position Yes -Correct Procedure Yes -Procedure Performed Yes -Type of Procedure Debridement -Clinical Debridement Subcutaneous -Post Debridement Size (cm) - Length 0.9 -Post Debridement Size (cm) - Width 1.3 -Post Debridement Size (cm) - Depth 0.2 -Total Square (cm) 1.17 -Wound/Ulcer Outcome Not Healed -Ulcer Cleansing Rinsed/ Irrigated with Saline -Foul Odor after Cleansing No -Bioengineered Tissue No -Bleeding Controlled with Pressure -Offloading No -Treatment Response Procedure Tolerated Well [See Physician Procedure note for Specifics] Pain Scale: 0-10 Numeric [Pain] -Is Patient Pain Free? Yes Musculoskeletal: Tenderness Neurological: Cranial nerves II-XII grossly intact Psych/Mental Status: Normal Affect, Appropriate Debridement Note Post-Debridement Measurements/Treatment WC - Nurse 2 - General Ulcer CM Notes Start: 10/24/19 08:25 Freq: Status: Active Protocol: Activity Type Activity Date Activity User E-Sign Co-Sign Detail Recorded Client Recorded Date Recorded By Document 10/24/19 08:58 NORRIS [id number] 10/24/19 09:05 NORRIS 10/24/19 08:58 Wound Center Nurse 2 #35 L Stump -Time 08:58 -Correct Patient Yes -Correct Side, Site, Position Yes -Correct Procedure Yes -Procedure Performed Yes -Type of Procedure Debridement -Clinical Debridement Subcutaneous -Post Debridement Size (cm) - Length 2.1 -Post Debridement Size (cm) - Width 3.5 -Post Debridement Size (cm) - Depth 0.2 -Total Square (cm) 7.35 -Wound/Ulcer Outcome Not Healed -Ulcer Cleansing Rinsed/ Irrigated with Saline -Foul Odor after Cleansing No -Bioengineered Tissue No -Bleeding Controlled with Pressure -Offloading No -Treatment Response Procedure Tolerated Well #36- R HEEL -Time 09:02 -Correct Patient Yes -Correct Side, Site, Position Yes -Correct Procedure Yes -Procedure Performed Yes -Type of Procedure Debridement -Clinical Debridement Subcutaneous -Post Debridement Size (cm) - Length 6.0 -Post Debridement Size (cm) - Width 1.2 -Post Debridement Size (cm) - Depth 0.2 -Total Square (cm) 7.20 -Ulcer Cleansing Rinsed/ Irrigated with Saline -Foul Odor after Cleansing No -Bioengineered Tissue No -Bleeding Controlled with Pressure -Offloading No -Treatment Response Procedure Tolerated Well #37-right 2nd toe -Time 08:59 -Correct Patient Yes -Correct Side, Site, Position Yes -Correct Procedure Yes -Procedure Performed Yes -Type of Procedure Debridement -Clinical Debridement Subcutaneous -Post Debridement Size (cm) - Length 1.5 -Post Debridement Size (cm) - Width 1.0 -Post Debridement Size (cm) - Depth 0.2 -Total Square (cm) 1.50 -Wound/Ulcer Outcome Not Healed -Ulcer Cleansing Rinsed/ Irrigated with Saline -Foul Odor after Cleansing No -Bioengineered Tissue No -Bleeding Controlled with Pressure -Offloading No -Treatment Response Procedure Tolerated Well #38 rt plantar medial foot -Time 09:00 -Correct Patient Yes -Correct Side, Site, Position Yes -Correct Procedure Yes -Procedure Performed Yes -Type of Procedure Debridement -Clinical Debridement Subcutaneous -Post Debridement Size (cm) - Length 0.9 -Post Debridement Size (cm) - Width 1.3 -Post Debridement Size (cm) - Depth 0.2 -Total Square (cm) 1.17 -Wound/Ulcer Outcome Not Healed -Ulcer Cleansing Rinsed/ Irrigated with Saline -Foul Odor after Cleansing No -Bioengineered Tissue No -Bleeding Controlled with Pressure -Offloading No -Treatment Response Procedure Tolerated Well Pain Scale: 0-10 Numeric Is Patient Pain Free? Yes Wound debrided: anterior BKA stump Laterality: Left Type of Debridement: Excisional debridement Anesthesia Used: 5% Lidocaine Gel Depth: Down to and including healthy tissue, in the subcutaneous layer Percentage of wound debrided: 100 Instrument Used: 5mm curette Tissue Removed: Subcutaneous tissue and slough Severity: Fat Layer Exposed Amount of bleeding with debridement: Mild Bleeding Controlled with: Pressure Patient tolerated procedure well - Additional Wound Wound debrided: second dorsal toe Laterality: Right Type of Debridement: Excisional debridement Anesthesia Used: 5% Lidocaine Gel Depth: Down to and including healthy tissue, in the subcutaneous layer, to muscle Instrument Used: 3mm curette Tissue Removed: Subcutaneous tissue and slough Severity: Limited To Skin Breakdown Amount of bleeding with debridement: Mild Bleeding Controlled with: Pressure Patient tolerated procedure: Patient tolerated procedure well - Additional Wound Wound debrided: heel cluster Laterality: Right Type of Debridement: Excisional debridement Anesthesia Used: 5% Lidocaine Gel Depth: Down to and including healthy tissue, in the subcutaneous layer Percentage of wound debrided: 100 Instrument Used: 5mm curette Tissue Removed: Subcutaneous tissue and slough Severity: Fat Layer Exposed Amount of bleeding with debridement: Mild Bleeding Controlled with: Pressure Patient tolerated procedure: Patient tolerated procedure well - Additional Wound Wound debrided: plantar mid foot Laterality: Right Type of Debridement: Excisional debridement Anesthesia Used: 4% Lidocaine Solution Depth: Down to and including healthy tissue, in the subcutaneous layer Percentage of wound debrided: 100 Instrument Used: 5mm curette Tissue Removed: Subcutaneous tissue and slough Severity: Fat Layer Exposed Amount of bleeding with debridement: Mild Bleeding Controlled with: Pressure Patient tolerated procedure: Patient tolerated procedure well Assessment/Plan Assessment: 1. 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 2. Osteomyelitis. 3. Acute kidney injury from recent medication (Vancomycin). 4. s/p TMA left foot. 5. Lymphedema lower extremities. 6. Venous insufficiency lower extremities. 7. Obesity. 8. MRSA. 9. s/p left below knee amputation. 10. Right forefoot medial plantar ulcer. 11. Right heel u lcer stable. 12. Peripheral vacular disease. Plan: For the anterior aspect left BKA stump, will begin Fibracol dressing changes daily. Will also use Fibracol to the right heal and foot ulcers. He states he cannot use Silver dressings. He is using a Jose Cruz open toe off loading boot on right foot. He is currently off his antibiotics. Prealbumion from 07/16/19 was 13.0. Encourage nutritional supplementation with protein to help the healing process. HgbA1c from 06/29/19 was 8.2 which is improved from 9.4 on 05/04/19. Followup 3 weeks. [id number]: [id number] Angelica subq tissue 20 sq cm/< - 79 modifier- right toe, right heal and right plantar foot
[2019-11-14 08:37] VITALS: BP 141/64; PULSE 67; RESP 18; TEMP 36.4; BMI 47.9
--- NOTE | 2019-11-14 09:33 | PN.PCM_ITS ---
(1) Nonhealing amputation stump Status: Chronic Current Visit: Yes Code(s): T87.89 - Other complications of amputation stump (2) Ulcer of right lower extremity with fat layer exposed Status: Chronic Current Visit: Yes Code(s): L97.912 - Non-pressure chronic ulcer of unspecified part of right lower leg with fat layer exposed (3) Ulcer of right heel and midfoot with fat layer exposed Status: Chronic Current Visit: Yes Code(s): L97.412 - Non-pressure chronic ulcer of right heel and midfoot with fat layer exposed (4) Debility Status: Chronic Current Visit: Yes Code(s): R53.81 - Other malaise (5) Body mass index (BMI) 50.0-59.9, adult Status: Chronic Current Visit: Yes Code(s): Z68.43 - Body mass index (BMI) 50.0-59.9, adult (6) Venous insufficiency Status: Chronic Current Visit: Yes Code(s): I87.2 - Venous insufficiency (chronic) (peripheral) (7) Peripheral vascular disease Status: Chronic Current Visit: Yes Code(s): I73.9 - Peripheral vascular disease, unspecified (8) Diabetes mellitus with polyneuropathy Status: Chronic Current Visit: Yes Qualifiers: Code(s): E11.42 - Type 2 diabetes mellitus with diabetic polyneuropathy (9) Diabetes mellitus Status: Chronic Current Visit: Yes Code(s): E11.9 - Type 2 diabetes mellitus without complications Type of Wound Date of Service: 11/14/19 Chief Complaint: Open surgical wound anterior aspect left BKA stump. History of Wound: Surgery 07/15/19 - Left below knee amputation. Wound care - VAC initially. Fibrocol to the opened areas. Operative culture - not done. Pathology - negative for osteomyelitis. Prealbumin from 07/16/19 was 13.0. Encourage nutritional supplementation with protein to help the healing process. HgbA1c from 06/29/19 was 8.2 (improved from 9.4 on 05/04/19). Today he denies fever. His appetite is ok. He has not been seen by Dr. Hernández for his right heel ulcer with chronic osteomyelitis, right plantar heel ulcer, and right forefoot ulcer recently. She should start seeing him again for the management of these ulcers. Progress of Wound: Stable. - Physical Exam Vital Signs Temp Pulse Resp BP 97.6 F L 67 18 141/64 H 11/14/19 08:37 11/14/19 08:37 11/14/19 08:37 11/14/19 08:37 General: Alert, Oriented x3, Cooperative HEENT: Atraumatic Oral: Moist Mucosa Lungs: Normal air movement Cardiovascular: Regular rate Abdomen: Obese Extremities: Capillary Refill Less than 3 Seconds, Edema Skin: Ulcer/ Wound - Left BKA stump ulcer is beefy pink. Right second toe ulcer, new ulcer on right lateral foot. Right heel and right medial foot have dry skin which after lotion applied appear healed at this time. Wound Measurements and Assessment WC - Nurse 1 - General Ulcer Measurement Start: 10/24/19 08:25 Freq: Status: Active Protocol: Activity Type Activity Date Activity User E-Sign Co-Sign Detail Recorded Client Recorded Date Recorded By Document 11/14/19 08:37 PL [id number] 11/14/19 08:54 PL 11/14/19 08:37 Wound Center Nurse 1 [Ulcer Assessment] #35 L Stump -Combined with other wound No -Current Size (cm) - Length 1 -Current Size (cm) - Width 1.8 -Current Size (cm) - Depth 0.2 -Total Square Cm 1.8 -Photo Taken No -Epithelialization None Present -Exudate Amt Medium -Exudate Type Serosanguineous -Granulation Amt Small (1-33%) -Granulation Quality [place] -Slough/Fibrin Yes -Necrosis Amt Large (67-100%) -Necrotic Tissue Type Adherent Slough -Texture (Susy-wound Skin Appearance) No Abnormality -Moisture (Susy-wound Skin Appearance Dry/Scaly ) -Color (Susy-wound Skin Appearance) No Abnormality -Temperature (Susy-wound Skin No Abnormality Appearance) (Pt Warm) -Ulcer Cleansing Rinsed/ Irrigated with Saline -Anesthetic Used 4% Lidocaine Solution #36- R HEEL -Combined with other wound No -Current Size (cm) - Length 1.8 -Current Size (cm) - Width 2 -Current Size (cm) - Depth 0.2 -Total Square Cm 3.6 -Epithelialization None Present -Exudate Amt Medium -Exudate Type Serosanguineous -Granulation Amt None Present (0 %) -Slough/Fibrin Yes -Necrosis Amt Large (67-100%) -Necrotic Tissue Type Eschar -Texture (Susy-wound Skin Appearance) Callus -Moisture (Susy-wound Skin Appearance Dry/Scaly ) -Color (Susy-wound Skin Appearance) No Abnormality -Temperature (Susy-wound Skin No Abnormality Appearance) (Pt Warm) -Ulcer Cleansing Rinsed/ Irrigated with Saline -Anesthetic Used 4% Lidocaine Solution #37-right 2nd toe -Combined with other wound No -Current Size (cm) - Length 1 -Current Size (cm) - Width 1 -Current Size (cm) - Depth 0.3 -Total Square Cm 1 -Photo Taken No -Epithelialization None Present -Exudate Amt Medium -Exudate Type Serosanguineous -Necrosis Amt Small (1-33%) -Texture (Susy-wound Skin Appearance) No Abnormality -Moisture (Susy-wound Skin Appearance No Abnormality ) -Color (Susy-wound Skin Appearance) No Abnormality -Temperature (Susy-wound Skin No Abnormality Appearance) (Pt Warm) -Ulcer Cleansing Rinsed/ Irrigated with Saline -Anesthetic Used 4% Lidocaine Solution #38 rt plantar medial foot -Combined with other wound No -Current Size (cm) - Length 0.5 -Current Size (cm) - Width 1 -Current Size (cm) - Depth 0.1 -Total Square Cm 0.5 -Photo Taken No -Epithelialization None Present -Exudate Amt Small -Exudate Type Serosanguineous -Granulation Amt Small (1-33%) -Granulation Quality [place] -Slough/Fibrin Yes -Necrosis Amt Large (67-100%) -Necrotic Tissue Type Adherent Slough -Texture (Susy-wound Skin Appearance) Callus -Moisture (Susy-wound Skin Appearance Dry/Scaly ) -Color (Susy-wound Skin Appearance) No Abnormality -Temperature (Susy-wound Skin No Abnormality Appearance) (Pt Warm) -Ulcer Cleansing Rinsed/ Irrigated with Saline -Foul Odor after Cleansing No -Anesthetic Used 4% Lidocaine Solution WC - Nurse 2 - General Ulcer CM Notes Start: 10/31/19 10:17 Freq: Status: Active Protocol: Activity Type Activity Date Activity User E-Sign Co-Sign Detail Recorded Client Recorded Date Recorded By Document 11/14/19 09:04 NORRIS [id number] 11/14/19 09:12 NORRIS 11/14/19 09:04 Wound Center Nurse 2 [Procedure/Treatment] 39-right lateral foot -Time 09:10 -Correct Patient Yes -Correct Side, Site, Position Yes -Correct Procedure Yes -Procedure Performed Yes -Type of Procedure Debridement -Clinical Debridement Subcutaneous -Tissue Removed Subcutaneous -Post Debridement (cm) - Length 1.5 -Post Debridement (cm) - Width 1.4 -Post Debridement (cm) - Depth 0.1 -Total Square (Post) (cm) 2.10 -Area of Debridement (cm) - Length 1.5 -Area of Debridement (cm) - Width 1.4 -Total Square (Area) (cm) 2.10 -Tunneling No -Undermining/Tunneling No -Circular Undermining No -Wound/Ulcer Outcome Not Healed -Bioengineered Tissue No -Debridement - Subq, 1st 20sq cm No #35 L Stump -Time 09:05 -Correct Patient Yes -Correct Side, Site, Position Yes -Correct Procedure Yes -Procedure Performed Yes -Type of Procedure Debridement -Clinical Debridement Subcutaneous -Tissue Removed Subcutaneous -Post Debridement (cm) - Length 1.3 -Post Debridement (cm) - Width 3 -Post Debridement (cm) - Depth 0.3 -Total Square (Post) (cm) 3.9 -Area of Debridement (cm) - Length 1.3 -Area of Debridement (cm) - Width 3.0 -Total Square (Area) (cm) 3.90 -Tunneling No -Undermining/Tunneling No -Circular Undermining No -Wound/Ulcer Outcome Not Healed -Ulcer Cleansing Rinsed/ Irrigated with Saline -Foul Odor after Cleansing No -Bioengineered Tissue No -Bleeding Controlled with Pressure -Offloading Yes -Type of Offloading Surgical Shoe -Treatment Response Procedure Tolerated Well -Debridement - Subq, 1st 20sq cm Yes #36- R HEEL -Correct Patient No -Correct Side, Site, Position No -Correct Procedure No -Procedure Performed No -Wound/Ulcer Outcome Not Healed #37-right 2nd toe -Time 09:06 -Correct Patient Yes -Correct Side, Site, Position Yes -Correct Procedure Yes -Procedure Performed Yes -Type of Procedure Debridement -Clinical Debridement Subcutaneous -Tissue Removed Subcutaneous -Post Debridement (cm) - Length 1.1 -Post Debridement (cm) - Width 1.1 -Post Debridement (cm) - Depth 0.2 -Total Square (Post) (cm) 1.21 -Area of Debridement (cm) - Length 1 -Area of Debridement (cm) - Width 1 -Total Square (Area) (cm) 1 -Tunneling No -Undermining/Tunneling No -Circular Undermining No -Wound/Ulcer Outcome Not Healed -Ulcer Cleansing Rinsed/ Irrigated with Saline -Foul Odor after Cleansing No -Bioengineered Tissue No -Bleeding Controlled with Pressure,Silver Nitrate -Offloading No -Treatment Response Procedure Tolerated Well -Debridement - Subq, 1st 20sq cm No #38 rt plantar medial foot -Correct Patient No -Correct Side, Site, Position No -Correct Procedure No -Procedure Performed No -Post Debridement (cm) - Length 0 -Post Debridement (cm) - Width 0 -Post Debridement (cm) - Depth 0 -Total Square (Post) (cm) 0 -Area of Debridement (cm) - Length 0 -Area of Debridement (cm) - Width 0 -Total Square (Area) (cm) 0 -Wound/Ulcer Outcome Healed- Epithelialized [See Physician Procedure note for Specifics] Pain Scale: 0-10 Numeric [Pain] -Is Patient Pain Free? Yes Musculoskeletal: No Tenderness to Palpation of Joints or Extremities Neurological: Cranial nerves II-XII grossly intact Psych/Mental Status: Normal Affect, Appropriate Debridement Note Post-Debridement Measurements/Treatment WC - Nurse 2 - General Ulcer CM Notes Start: 10/31/19 10:17 Freq: Status: Active Protocol: Activity Type Activity Date Activity User E-Sign Co-Sign Detail Recorded Client Recorded Date Recorded By Document 11/14/19 09:04 NORRIS [id number] 11/14/19 09:12 NORRIS 11/14/19 09:04 Wound Center Nurse 2 39-right lateral foot -Time 09:10 -Correct Patient Yes -Correct Side, Site, Position Yes -Correct Procedure Yes -Procedure Performed Yes -Type of Procedure Debridement -Clinical Debridement Subcutaneous -Tissue Removed Subcutaneous -Post Debridement (cm) - Length 1.5 -Post Debridement (cm) - Width 1.4 -Post Debridement (cm) - Depth 0.1 -Total Square (Post) (cm) 2.10 -Area of Debridement (cm) - Length 1.5 -Area of Debridement (cm) - Width 1.4 -Total Square (Area) (cm) 2.10 -Tunneling No -Undermining/Tunneling No -Circular Undermining No -Wound/Ulcer Outcome Not Healed -Bioengineered Tissue No -Debridement - Subq, 1st 20sq cm No #35 L Stump -Time 09:05 -Correct Patient Yes -Correct Side, Site, Position Yes -Correct Procedure Yes -Procedure Performed Yes -Type of Procedure Debridement -Clinical Debridement Subcutaneous -Tissue Removed Subcutaneous -Post Debridement (cm) - Length 1.3 -Post Debridement (cm) - Width 3 -Post Debridement (cm) - Depth 0.3 -Total Square (Post) (cm) 3.9 -Area of Debridement (cm) - Length 1.3 -Area of Debridement (cm) - Width 3.0 -Total Square (Area) (cm) 3.90 -Tunneling No -Undermining/Tunneling No -Circular Undermining No -Wound/Ulcer Outcome Not Healed -Ulcer Cleansing Rinsed/ Irrigated with Saline -Foul Odor after Cleansing No -Bioengineered Tissue No -Bleeding Controlled with Pressure -Offloading Yes -Type of Offloading Surgical Shoe -Treatment Response Procedure Tolerated Well -Debridement - Subq, 20sq cm Yes #36- R HEEL -Correct Patient No -Correct Side, Site, Position No -Correct Procedure No -Procedure Performed No -Wound/Ulcer Outcome Not Healed #37-right 2nd toe -Time 09:06 -Correct Patient Yes -Correct Side, Site, Position Yes -Correct Procedure Yes -Procedure Performed Yes -Type of Procedure Debridement -Clinical Debridement Subcutaneous -Tissue Removed Subcutaneous -Post Debridement (cm) - Length 1.1 -Post Debridement (cm) - Width 1.1 -Post Debridement (cm) - Depth 0.2 -Total Square (Post) (cm) 1.21 -Area of Debridement (cm) - Length 1 -Area of Debridement (cm) - Width 1 -Total Square (Area) (cm) 1 -Tunneling No -Undermining/Tunneling No -Circular Undermining No -Wound/Ulcer Outcome Not Healed -Ulcer Cleansing Rinsed/ Irrigated with Saline -Foul Odor after Cleansing No -Bioengineered Tissue No -Bleeding Controlled with Pressure,Silver Nitrate -Offloading No -Treatment Response Procedure Tolerated Well -Debridement - Subq, 20sq cm No #38 rt plantar medial foot -Correct Patient No -Correct Side, Site, Position No -Correct Procedure No -Procedure Performed No -Post Debridement (cm) - Length 0 -Post Debridement (cm) - Width 0 -Post Debridement (cm) - Depth 0 -Total Square (Post) (cm) 0 -Area of Debridement (cm) - Length 0 -Area of Debridement (cm) - Width 0 -Total Square (Area) (cm) 0 -Wound/Ulcer Outcome Healed- Epithelialized Pain Scale: 0-10 Numeric Is Patient Pain Free? Yes Wound debrided: BKA stump ulcer Laterality: Left Type of Debridement: Excisional debridement Anesthesia Used: 5% Lidocaine Gel Depth: Down to and including healthy tissue, in the subcutaneous layer Percentage of wound debrided: 100 Instrument Used: 5mm curette Tissue Removed: Subcutaneous tissue and slough Severity: Fat Layer Exposed Amount of bleeding with debridement: Mild Bleeding Controlled with: Pressure Patient tolerated procedure well - Additional Wound Wound debrided: dorsa 2nd toe ulcer Laterality: Right Type of Debridement: Excisional debridement Anesthesia Used: 4% Lidocaine Solution Depth: Down to and including healthy tissue, in the subcutaneous layer Percentage of wound debrided: 100 Instrument Used: 3mm curette Tissue Removed: Subcutaneous tissue and slough Severity: Fat Layer Exposed Amount of bleeding with debridement: Mild Bleeding Controlled with: Pressure Patient tolerated procedure: Patient tolerated procedure well - Additional Wound Wound debrided: lateral foot ulcer Laterality: Right Type of Debridement: Excisional debridement Anesthesia Used: 4% Lidocaine Solution Depth: Down to and including healthy tissue, in the subcutaneous layer Percentage of wound debrided: 100 Instrument Used: 5mm curette Tissue Removed: Subcutaneous tissue and slough Severity: Fat Layer Exposed Amount of bleeding with debridement: Moderate Bleeding Controlled with: Pressure, Compression and gauze, Silver Nitrate Patient tolerated procedure: Patient tolerated procedure well Assessment/Plan Active Problems Nonhealing amputation stump (Chronic) Debility (Chronic) Diabetes mellitus (Chronic) Body mass index (BMI) 50.0-59.9, adult (Chronic) Venous insufficiency (Chronic) Peripheral vascular disease (Chronic) Ulcer of right lower extremity with fat layer exposed (Chronic) Diabetes mellitus with polyneuropathy (Chronic) Ulcer of right heel and midfoot with fat layer exposed (Chronic) Assessment: 1. 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 2. Osteomyelitis. 3. Acute kidney injury from recent medication (Vancomycin). 4. s/p TMA left foot. 5. Lymphedema lower extremities. 6. Venous insufficiency lower extremities. 7. Obesity. 8. MRSA. 9. s/p left below knee amputation. 10. Right forefoot medial plantar ulcer. 11. Right heel ulcer stable. 12. Peripheral vacular disease. Plan: For the anterior aspect left BKA stump, will begin Fibracol dressing changes daily. Will also use Fibracol to the right dorsal 2nd toe and right lateral foot. Had to use silver nitrate to stop the bleeding of the right latearl foot ulcer. The right medial foot and right heal ulcers have dried scabbing that appears healed underneath, will apply lotion to these areas in addition to the lower leg dryness. He is using a Jose Cruz open toe off loading boot on right foot. He is currently off his antibiotics. Prealbumion from 07/16/19 was 13.0. Encourage nutritional supplementation with protein to help the healing process. HgbA1c from 06/29/19 was 8.2 which is improved from 9.4 on 05/04/19. Will have him see Dr. Hernández for his ulcers since he is known to her. We will monitor his left BKA stump ulcer monthly. Follow up 1-[address] Hernández. Followup [address] Pompa. [id number]: [id number] Angelica subq tissue 20 sq cm/<
--- NOTE | 2019-11-14 15:30 | PN.PCM_ITS ---
(1) Nonhealing amputation stump Status: Chronic Code(s): T87.89 - Other complications of amputation stump (2) Ulcer of right lower extremity with fat layer exposed Status: Chronic Code(s): L97.912 - Non-pressure chronic ulcer of unspecified part of right lower leg with fat layer exposed (3) Ulcer of right heel and midfoot with fat layer exposed Status: Chronic Code(s): L97.412 - Non-pressure chronic ulcer of right heel and midfoot with fat layer exposed (4) Debility Status: Chronic Code(s): R53.81 - Other malaise (5) Body mass index (BMI) 50.0-59.9, adult Status: Chronic Code(s): Z68.43 - Body mass index (BMI) 50.0-59.9, adult (6) Venous insufficiency Status: Chronic Code(s): I87.2 - Venous insufficiency (chronic) (peripheral) (7) Peripheral vascular disease Status: Chronic Code(s): I73.9 - Peripheral vascular disease, unspecified (8) Diabetes mellitus with polyneuropathy Status: Chronic Qualifiers: Code(s): E11.42 - Type 2 diabetes mellitus with diabetic polyneuropathy (9) Diabetes mellitus Status: Chronic Code(s): E11.9 - Type 2 diabetes mellitus without complications Type of Wound Date of Service: 11/14/19 Chief Complaint: Open surgical wound anterior aspect left BKA stump. History of Wound: Surgery 07/15/19 - Left below knee amputation. Wound care - VAC initially. Fibrocol to the opened areas. Operative culture - not done. Pathology - negative for osteomyelitis. Prealbumin from 07/16/19 was 13.0. Encourage nutritional supplementation with protein to help the healing process. HgbA1c from 06/29/19 was 8.2 (improved from 9.4 on 05/04/19). Today he denies fever. His appetite is ok. He has not been seen by Dr. Hernández for his right heel ulcer with chronic osteomyelitis, right plantar heel ulcer, and right forefoot ulcer recently. She should start seeing him again for the management of these ulcers. Progress of Wound: Stable. - Physical Exam Vital Signs Temp Pulse Resp BP 97.6 F L 67 18 141/64 H 11/14/19 08:37 11/14/19 08:37 11/14/19 08:37 11/14/19 08:37 General: Alert, Oriented x3, Cooperative HEENT: Atraumatic Oral: Moist Mucosa Lungs: Normal air movement Cardiovascular: Regular rate Extremities: Capillary Refill Less than 3 Seconds, Edema Skin: Ulcer/ Wound - Left stump ulcer, ulcer of right 2nd toe, right lateral foot ulcer and rightheel ulcer Wound Measurements and Assessment WC - Nurse 1 - General Ulcer Measurement Start: 10/24/19 08:25 Freq: Status: Active Protocol: Activity Type Activity Date Activity User E-Sign Co-Sign Detail Recorded Client Recorded Date Recorded By Document 11/14/19 08:37 [address] [id number] 11/14/19 08:54 PL 11/14/19 08:37 Wound Center Nurse 1 [Ulcer Assessment] #35 L Stump -Combined with other wound No -Current Size (cm) - Length 1 -Current Size (cm) - Width 1.8 -Current Size (cm) - Depth 0.2 -Total Square Cm 1.8 -Photo Taken No -Epithelialization None Present -Exudate Amt Medium -Exudate Type Serosanguineous -Granulation Amt Small (1-33%) -Granulation Quality [place] -Slough/Fibrin Yes -Necrosis Amt Large (67-100%) -Necrotic Tissue Type Adherent Slough -Texture (Susy-wound Skin Appearance) No Abnormality -Moisture (Susy-wound Skin Appearance Dry/Scaly ) -Color (Susy-wound Skin Appearance) No Abnormality -Temperature (Susy-wound Skin No Abnormality Appearance) (Pt Warm) -Ulcer Cleansing Rinsed/ Irrigated with Saline -Anesthetic Used 4% Lidocaine Solution #36- R HEEL -Combined with other wound No -Current Size (cm) - Length 1.8 -Current Size (cm) - Width 2 -Current Size (cm) - Depth 0.2 -Total Square Cm 3.6 -Epithelialization None Present -Exudate Amt Medium -Exudate Type Serosanguineous -Granulation Amt None Present (0 %) -Slough/Fibrin Yes -Necrosis Amt Large (67-100%) -Necrotic Tissue Type Eschar -Texture (Susy-wound Skin Appearance) Callus -Moisture (Susy-wound Skin Appearance Dry/Scaly ) -Color (Susy-wound Skin Appearance) No Abnormality -Temperature (Susy-wound Skin No Abnormality Appearance) (Pt Warm) -Ulcer Cleansing Rinsed/ Irrigated with Saline -Anesthetic Used 4% Lidocaine Solution #37-right 2nd toe -Combined with other wound No -Current Size (cm) - Length 1 -Current Size (cm) - Width 1 -Current Size (cm) - Depth 0.3 -Total Square Cm 1 -Photo Taken No -Epithelialization None Present -Exudate Amt Medium -Exudate Type Serosanguineous -Necrosis Amt Small (1-33%) -Texture (Susy-wound Skin Appearance) No Abnormality -Moisture (Susy-wound Skin Appearance No Abnormality ) -Color (Susy-wound Skin Appearance) No Abnormality -Temperature (Susy-wound Skin No Abnormality Appearance) (Pt Warm) -Ulcer Cleansing Rinsed/ Irrigated with Saline -Anesthetic Used 4% Lidocaine Solution #38 rt plantar medial foot -Combined with other wound No -Current Size (cm) - Length 0.5 -Current Size (cm) - Width 1 -Current Size (cm) - Depth 0.1 -Total Square Cm 0.5 -Photo Taken No -Epithelialization None Present -Exudate Amt Small -Exudate Type Serosanguineous -Granulation Amt Small (1-33%) -Granulation Quality [place] -Slough/Fibrin Yes -Necrosis Amt Large (67-100%) -Necrotic Tissue Type Adherent Slough -Texture (Susy-wound Skin Appearance) Callus -Moisture (Susy-wound Skin Appearance Dry/Scaly ) -Color (Susy-wound Skin Appearance) No Abnormality -Temperature (Susy-wound Skin No Abnormality Appearance) (Pt Warm) -Ulcer Cleansing Rinsed/ Irrigated with Saline -Foul Odor after Cleansing No -Anesthetic Used 4% Lidocaine Solution WC - Nurse 2 - General Ulcer CM Notes Start: 10/31/19 10:17 Freq: Status: Active Protocol: Activity Type Activity Date Activity User E-Sign Co-Sign Detail Recorded Client Recorded Date Recorded By Document 11/14/19 09:04 NORRIS [id number] 11/14/19 09:12 NORRIS 11/14/19 09:04 Wound Center Nurse 2 [Procedure/Treatment] 39-right lateral foot -Time 09:10 -Correct Patient Yes -Correct Side, Site, Position Yes -Correct Procedure Yes -Procedure Performed Yes -Type of Procedure Debridement -Clinical Debridement Subcutaneous -Tissue Removed Subcutaneous -Post Debridement (cm) - Length 1.5 -Post Debridement (cm) - Width 1.4 -Post Debridement (cm) - Depth 0.1 -Total Square (Post) (cm) 2.10 -Area of Debridement (cm) - Length 1.5 -Area of Debridement (cm) - Width 1.4 -Total Square (Area) (cm) 2.10 -Tunneling No -Undermining/Tunneling No -Circular Undermining No -Wound/Ulcer Outcome Not Healed -Bioengineered Tissue No -Debridement - Subq, 1st 20sq cm No #35 L Stump -Time 09:05 -Correct Patient Yes -Correct Side, Site, Position Yes -Correct Procedure Yes -Procedure Performed Yes -Type of Procedure Debridement -Clinical Debridement Subcutaneous -Tissue Removed Subcutaneous -Post Debridement (cm) - Length 1.3 -Post Debridement (cm) - Width 3 -Post Debridement (cm) - Depth 0.3 -Total Square (Post) (cm) 3.9 -Area of Debridement (cm) - Length 1.3 -Area of Debridement (cm) - Width 3.0 -Total Square (Area) (cm) 3.90 -Tunneling No -Undermining/Tunneling No -Circular Undermining No -Wound/Ulcer Outcome Not Healed -Ulcer Cleansing Rinsed/ Irrigated with Saline -Foul Odor after Cleansing No -Bioengineered Tissue No -Bleeding Controlled with Pressure -Offloading Yes -Type of Offloading Surgical Shoe -Treatment Response Procedure Tolerated Well -Debridement - Subq, 1st 20sq cm Yes #36- R HEEL -Correct Patient No -Correct Side, Site, Position No -Correct Procedure No -Procedure Performed No -Wound/Ulcer Outcome Not Healed #37-right 2nd toe -Time 09:06 -Correct Patient Yes -Correct Side, Site, Position Yes -Correct Procedure Yes -Procedure Performed Yes -Type of Procedure Debridement -Clinical Debridement Subcutaneous -Tissue Removed Subcutaneous -Post Debridement (cm) - Length 1.1 -Post Debridement (cm) - Width 1.1 -Post Debridement (cm) - Depth 0.2 -Total Square (Post) (cm) 1.21 -Area of Debridement (cm) - Length 1 -Area of Debridement (cm) - Width 1 -Total Square (Area) (cm) 1 -Tunneling No -Undermining/Tunneling No -Circular Undermining No -Wound/Ulcer Outcome Not Healed -Ulcer Cleansing Rinsed/ Irrigated with Saline -Foul Odor after Cleansing No -Bioengineered Tissue No -Bleeding Controlled with Pressure,Silver Nitrate -Offloading No -Treatment Response Procedure Tolerated Well -Debridement - Subq, 1st 20sq cm No #38 rt plantar medial foot -Correct Patient No -Correct Side, Site, Position No -Correct Procedure No -Procedure Performed No -Post Debridement (cm) - Length 0 -Post Debridement (cm) - Width 0 -Post Debridement (cm) - Depth 0 -Total Square (Post) (cm) 0 -Area of Debridement (cm) - Length 0 -Area of Debridement (cm) - Width 0 -Total Square (Area) (cm) 0 -Wound/Ulcer Outcome Healed- Epithelialized [See Physician Procedure note for Specifics] Pain Scale: 0-10 Numeric [Pain] -Is Patient Pain Free? Yes WC - Nurse 3 - General Ulcer D/C NN Start: 11/14/19 09:34 Freq: Status: Active Protocol: Activity Type Activity Date Activity User E-Sign Co-Sign Detail Recorded Client Recorded Date Recorded By Document 11/14/19 09:34 [facility] [id number] 11/14/19 09:35 [facility] 11/14/19 09:34 Wound Care Nurse 3 [Wound Dressing] 39-right lateral foot -Ulcer Cleansing Rinsed/ Irrigated with Saline -Foul Odor after Cleansing No -Primary Dressing Applied Fibracol Plus 4x4 -Primary Dressing Covered/Secured Dry Gauze & with Roll Gauze, Secured with Tape -Fibracol Plus 4x4 1 #35 L Stump -Ulcer Cleansing Rinsed/ Irrigated with Saline -Foul Odor after Cleansing No -Primary Dressing Applied Fibracol Plus 4x4 -Primary Dressing Covered/Secured Dry Gauze & with Roll Gauze, Secured with Tape -Fibracol Plus 4x4 0 #36- R HEEL -Ulcer Cleansing Rinsed/ Irrigated with Saline -Foul Odor after Cleansing No -Primary Dressing Applied Fibracol Plus 4x4 -Primary Dressing Covered/Secured Dry Gauze & with Roll Gauze, Secured with Tape -Fibracol Plus 4x4 0 #37-right 2nd toe -Ulcer Cleansing Rinsed/ Irrigated with Saline -Foul Odor after Cleansing No -Primary Dressing Applied Fibracol Plus 4x4 -Primary Dressing Covered/Secured Dry Gauze & with Roll Gauze, Secured with Tape -Fibracol Plus 4x4 0 [Compression Applied] Right -Other used pts own tubigrip Left -Other used pts own tubigrip [Post Procedure Tolerated] -Treatment Response Procedure Tolerated Well Pain Scale: 0-10 Numeric [Pain] -Is Patient Pain Free? Yes - Visit Discharge [Visit Discharge Information] -Discharge Condition Stable -Ambulatory Status Wheelchair [Facility Notification] -Facility Type Home Health Musculoskeletal: No Tenderness to Palpation of Joints or Extremities Neurological: Cranial nerves II-XII grossly intact Psych/Mental Status: Normal Affect, Appropriate Debridement Note Post-Debridement Measurements/Treatment - Nurse 2 - General Ulcer CM Notes Start: 10/31/19 10:17 Freq: Status: Active Protocol: Activity Type Activity Date Activity User E-Sign Co-Sign Detail Recorded Client Recorded Date Recorded By Document 11/14/19 09:04 NORRIS [id number] 11/14/19 09:12 NORRIS 11/14/19 09:04 Wound Center Nurse 2 39-right lateral foot -Time 09:10 -Correct Patient Yes -Correct Side, Site, Position Yes -Correct Procedure Yes -Procedure Performed Yes -Type of Procedure Debridement -Clinical Debridement Subcutaneous -Tissue Removed Subcutaneous -Post Debridement (cm) - Length 1.5 -Post Debridement (cm) - Width 1.4 -Post Debridement (cm) - Depth 0.1 -Total Square (Post) (cm) 2.10 -Area of Debridement (cm) - Length 1.5 -Area of Debridement (cm) - Width 1.4 -Total Square (Area) (cm) 2.10 -Tunneling No -Undermining/Tunneling No -Circular Undermining No -Wound/Ulcer Outcome Not Healed -Bioengineered Tissue No -Debridement - Subq, 1st 20sq cm No #35 L Stump -Time 09:05 -Correct Patient Yes -Correct Side, Site, Position Yes -Correct Procedure Yes -Procedure Performed Yes -Type of Procedure Debridement -Clinical Debridement Subcutaneous -Tissue Removed Subcutaneous -Post Debridement (cm) - Length 1.3 -Post Debridement (cm) - Width 3 -Post Debridement (cm) - Depth 0.3 -Total Square (Post) (cm) 3.9 -Area of Debridement (cm) - Length 1.3 -Area of Debridement (cm) - Width 3.0 -Total Square (Area) (cm) 3.90 -Tunneling No -Undermining/Tunneling No -Circular Undermining No -Wound/Ulcer Outcome Not Healed -Ulcer Cleansing Rinsed/ Irrigated with Saline -Foul Odor after Cleansing No -Bioengineered Tissue No -Bleeding Controlled with Pressure -Offloading Yes -Type of Offloading Surgical Shoe -Treatment Response Procedure Tolerated Well -Debridement - Subq, 1st 20sq cm Yes #36- R HEEL -Correct Patient No -Correct Side, Site, Position No -Correct Procedure No -Procedure Performed No -Wound/Ulcer Outcome Not Healed #37-right 2nd toe -Time 09:06 -Correct Patient Yes -Correct Side, Site, Position Yes -Correct Procedure Yes -Procedure Performed Yes -Type of Procedure Debridement -Clinical Debridement Subcutaneous -Tissue Removed Subcutaneous -Post Debridement (cm) - Length 1.1 -Post Debridement (cm) - Width 1.1 -Post Debridement (cm) - Depth 0.2 -Total Square (Post) (cm) 1.21 -Area of Debridement (cm) - Length 1 -Area of Debridement (cm) - Width 1 -Total Square (Area) (cm) 1 -Tunneling No -Undermining/Tunneling No -Circular Undermining No -Wound/Ulcer Outcome Not Healed -Ulcer Cleansing Rinsed/ Irrigated with Saline -Foul Odor after Cleansing No -Bioengineered Tissue No -Bleeding Controlled with Pressure,Silver Nitrate -Offloading No -Treatment Response Procedure Tolerated Well -Debridement - Subq, 1st 20sq cm No #38 rt plantar medial foot -Correct Patient No -Correct Side, Site, Position No -Correct Procedure No -Procedure Performed No -Post Debridement (cm) - Length 0 -Post Debridement (cm) - Width 0 -Post Debridement (cm) - Depth 0 -Total Square (Post) (cm) 0 -Area of Debridement (cm) - Length 0 -Area of Debridement (cm) - Width 0 -Total Square (Area) (cm) 0 -Wound/Ulcer Outcome Healed- Epithelialized Pain Scale: 0-10 Numeric Is Patient Pain Free? Yes WC - Nurse 3 - General Ulcer D/C NN Start: 11/14/19 09:34 Freq: Status: Active Protocol: Activity Type Activity Date Activity User E-Sign Co-Sign Detail Recorded Client Recorded Date Recorded By Document 11/14/19 09:34 [facility] [id number] 11/14/19 09:35 [facility] 11/14/19 09:34 Wound Care Nurse 3 39-right lateral foot -Ulcer Cleansing Rinsed/ Irrigated with Saline -Foul Odor after Cleansing No -Primary Dressing Applied Fibracol Plus 4x4 -Primary Dressing Covered/Secured with Dry Gauze & Roll Gauze, Secured with Tape -Fibracol Plus 4x4 1 #35 L Stump -Ulcer Cleansing Rinsed/ Irrigated with Saline -Foul Odor after Cleansing No -Primary Dressing Applied Fibracol Plus 4x4 -Primary Dressing Covered/Secured with Dry Gauze & Roll Gauze, Secured with Tape -Fibracol Plus 4x4 0 #36- R HEEL -Ulcer Cleansing Rinsed/ Irrigated with Saline -Foul Odor after Cleansing No -Primary Dressing Applied Fibracol Plus 4x4 -Primary Dressing Covered/Secured with Dry Gauze & Roll Gauze, Secured with Tape -Fibracol Plus 4x4 0 #37-right 2nd toe -Ulcer Cleansing Rinsed/ Irrigated with Saline -Foul Odor after Cleansing No -Primary Dressing Applied Fibracol Plus 4x4 -Primary Dressing Covered/Secured with Dry Gauze & Roll Gauze, Secured with Tape -Fibracol Plus 4x4 0 Right -Other used pts own tubigrip Left -Other used pts own tubigrip Treatment Response Procedure Tolerated Well Pain Scale: 0-10 Numeric Is Patient Pain Free? Yes WC - Visit Discharge Discharge Condition Stable Ambulatory Status Wheelchair Facility Type Home Health Wound debrided: stump ulcer Laterality: Left Type of Debridement: Excisional debridement Anesthesia Used: 4% Lidocaine Solution Depth: Down to and including healthy tissue, in the subcutaneous layer Percentage of wound debrided: 100 Instrument Used: 3mm curette Tissue Removed: Subcutaneous tissue and slough Severity: Limited To Skin Breakdown Amount of bleeding with debridement: Mild Bleeding Controlled with: Pressure Patient tolerated procedure well - Additional Wound Wound debrided: 2nd dorsal toe ulcer Laterality: Right Type of Debridement: Excisional debridement Anesthesia Used: 5% Lidocaine Gel Depth: Down to and including healthy tissue, in the subcutaneous layer Percentage of wound debrided: 100 Instrument Used: 3mm curette Tissue Removed: Subcutaneous tissue and slough Severity: Fat Layer Exposed Amount of bleeding with debridement: Mild Bleeding Controlled with: Pressure Patient tolerated procedure: Patient tolerated procedure well - Additional Wound Wound debrided: Right lateral foot ulcer Laterality: Right Type of Debridement: Excisional debridement Anesthesia Used: 5% Lidocaine Gel Depth: Down to and including healthy tissue, in the subcutaneous layer Percentage of wound debrided: 100 Instrument Used: 5mm curette Tissue Removed: Subcutaneous tissue and slough Severity: Limited To Skin Breakdown Amount of bleeding with debridement: Mild Bleeding Controlled with: Pressure, Compression and gauze, Silver Nitrate Patient tolerated procedure: Patient tolerated procedure well Assessment/Plan Assessment: 1. 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 2. Osteomyelitis. 3. Acute kidney injury from recent medication (Vancomycin). 4. s/p TMA left foot. 5. Lymphedema lower extremities. 6. Venous insufficiency lower extremities. 7. Obesity. 8. MRSA. 9. s/p left below knee amputation. 10. Right forefoot medial plantar ulcer. 11. Right heel ulcer stable. 12. Peripheral vacular disease. Plan: For the anterior aspect left BKA stump, will continue Fibracol dressing changes daily. Will also use Fibracol to the right dorsal 2nd toe and right lateral foot. Had to use silver nitrate to stop the bleeding of the right lateral foot ulcer. The right medial foot and right heal ulcers have dried scabbing that appears healed underneath, will apply lotion to these areas in addition to the lower leg dryness. He is using a Jose Cruz open toe off loading boot on right foot. He is currently off his antibiotics. Prealbumion from 07/16/19 was 13.0. Encourage nutritional supplementation with protein to help the healing process. HgbA1c from 06/29/19 was 8.2 which is improved from 9.4 on 05/04/19. Will have him see Dr. Hernández for his ulcers since he is known to her. We will monitor his left BKA stump ulcer monthly. Follow up 1-[address] Hernández. Followup [address] Pompa. [id number]: [id number] Angelica subq tissue 20 sq cm/<
== END 2019-11-14 23:59 ==
LOC: WC 08:30
PROVIDERS: PCP Family Medicine; Visit Provider Surgery
DX: E11.621 Type 2 diabetes mellitus with foot ulcer (principal); E11.42 Type 2 diabetes mellitus with diabetic polyneuropathy; E11.51 Type 2 diabetes mellitus with diabetic peripheral angiopathy without gangrene; L97.412 Non-pressure chronic ulcer of right heel and midfoot with fat layer exposed; L97.812 Non-pressure chronic ulcer of other part of right lower leg with fat layer exposed; T87.89 Other complications of amputation stump; Y83.8 Other surgical procedures as the cause of abnormal reaction of the patient, or of later complication, without mention of misadventure at the time of the procedure; E11.69 Type 2 diabetes mellitus with other specified complication; M86.671 Other chronic osteomyelitis, right ankle and foot; L97.512 Non-pressure chronic ulcer of other part of right foot with fat layer exposed; I89.0 Lymphedema, not elsewhere classified; Z86.14 Personal history of Methicillin resistant Staphylococcus aureus infection; E66.9 Obesity, unspecified; Z68.43 Body mass index [BMI] 50.0-59.9, adult
CPT/HCPCS: 11042

== ENCOUNTER 2019-12-14 10:45 | Outpatient (RCR) | payer MEDICARE, MEDICAID, SELFPAY ==
[2019-11-15 00:16] VITALS: BP 141/64; PULSE 67; RESP 18; TEMP 36.4
[2019-11-23 11:46] VITALS: BP 162/67; PULSE 73; RESP 16; TEMP 36.7; BMI 47.9
--- NOTE | 2019-11-23 13:23 | PN.PCM_ITS ---
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 Right second toe ulcer that is new. Right dorsal foot ulcer, new. 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 He has been managed by his surgeon. He also had a prior right heel ulcer and relates this has healed and has maintained closure. He does however have some new ulcers on the right foot with an onset of the last 2 weeks. He did not recall specifically having a trauma however his edema does fluctuate sometimes and he thinks that his foot skin rubbing his shoe. He denies current fever, chill, nausea, vomiting. He denies pain. He lost over 160 pounds since I have last seen him in the clinical setting due to portion control and incorporation of more fresh vegetables into his diet. Progress of Wound: Left below-knee amputation residual ulcer managed by surgeon. New right foot ulcer is noted - Physical Exam Vital Signs Temp Pulse Resp BP 98.1 F 73 16 162/67 H 11/23/19 11:46 11/23/19 11:46 11/23/19 11:46 11/23/19 11:46 General: Alert, Oriented x3, Cooperative Extremities: No cyanosis, Capillary Refill Less than 3 Seconds, No Calf Tenderness, Diminished Peripheral Pulses, Edema, - - Left below-knee amputation. Right hallux amputation. Wheelchair and lack of self ambulation noted Skin: Ulcer/ Wound - Left below-knee amputation dressing has remained intact. Right dorsal second toe ulcer, lateral forefoot, and dorsal hindfoot ulcer has granular base with fibrous tissue. There is no necrosis, eschar, or deep tissue exposure such as joint or muscle. His adjacent skin is hairless and atrophic. There is epithelialized in great skin remodeling noted to the previous heel ulcer site Wound Measurements and Assessment WC - Nurse 1 - General Ulcer Measurement Start: 11/23/19 11:32 Freq: Status: Active Protocol: Activity Type Activity Date Activity User E-Sign Co-Sign Detail Recorded Client Recorded Date Recorded By Document 11/23/19 11:46 MW [id number] 11/23/19 11:58 MW 11/23/19 11:46 Wound Center Nurse 1 [Ulcer Assessment] #40 RIGHT DORSAL FOOT -Combined with other wound No -Current Size (cm) - Length 3.0 -Current Size (cm) - Width 7.1 -Current Size (cm) - Depth 0.2 -Total Square Cm 21.30 -Date of Last Picture (Recall this 11/23/19 field) -Photo Taken Yes -Epithelialization None Present -Tunneling No -Undermining/Tunneling No -Circular Undermining No -Exudate Amt Small -Exudate Type Serosanguineous -Wound Margin Flat & Intact -Granulation Amt Large (67-100%) -Granulation Quality [place] -Slough/Fibrin Yes -Necrosis Amt Small (1-33%) -Necrotic Tissue Type Adherent Slough -Structure Exposed N/A -Texture (Susy-wound Skin Appearance) Assessed, Localized Edema ,Scarring -Moisture (Susy-wound Skin Appearance No Abnormality, ) Assessed -Color (Susy-wound Skin Appearance) Assessed,Rubor -Temperature (Susy-wound Skin No Abnormality Appearance) (Pt Warm) -Tenderness on Palpation (Susy-wound No Skin Appearance) -Ulcer Cleansing Rinsed/ Irrigated with Saline -Foul Odor after Cleansing No -Anesthetic Used 4% Lidocaine Solution 39-right lateral foot -Combined with other wound No -Current Size (cm) - Length 0.4 -Current Size (cm) - Width 1.0 -Current Size (cm) - Depth 0.2 -Total Square Cm 0.40 -Photo Taken No -Epithelialization None Present -Tunneling No -Undermining/Tunneling No -Circular Undermining No -Exudate Amt Small -Exudate Type Serosanguineous -Wound Margin Flat & Intact -Granulation Amt Large (67-100%) -Granulation Quality [place] -Slough/Fibrin Yes -Necrosis Amt None Present (0 %) -Structure Exposed N/A -Texture (Susy-wound Skin Appearance) Assessed, Localized Edema ,Scarring -Moisture (Susy-wound Skin Appearance No Abnormality, ) Assessed -Color (Susy-wound Skin Appearance) Assessed,Rubor -Temperature (Susy-wound Skin No Abnormality Appearance) (Pt Warm) -Tenderness on Palpation (Susy-wound Yes Skin Appearance) -Ulcer Cleansing Rinsed/ Irrigated with Saline -Foul Odor after Cleansing No -Anesthetic Used 4% Lidocaine Solution #35 L Stump -Combined with other wound No -Current Size (cm) - Length 1.1 -Current Size (cm) - Width 2.8 -Current Size (cm) - Depth 0.3 -Total Square Cm 3.08 -Photo Taken No -Epithelialization None Present -Tunneling No -Undermining/Tunneling No -Circular Undermining No -Exudate Amt Small -Exudate Type Serosanguineous -Wound Margin Flat & Intact -Granulation Amt Small (1-33%) -Granulation Quality [place] -Slough/Fibrin Yes -Necrosis Amt Large (67-100%) -Necrotic Tissue Type Adherent Slough -Structure Exposed N/A -Texture (Susy-wound Skin Appearance) Assessed, Localized Edema ,Scarring -Moisture (Susy-wound Skin Appearance Assessed,Dry/ ) Scaly -Color (Susy-wound Skin Appearance) Assessed,Rubor -Temperature (Susy-wound Skin No Abnormality Appearance) (Pt Warm) -Tenderness on Palpation (Susy-wound Yes Skin Appearance) -Ulcer Cleansing Rinsed/ Irrigated with Saline -Foul Odor after Cleansing No -Anesthetic Used 4% Lidocaine Solution #36- R HEEL -Combined with other wound No -Current Size (cm) - Length 0.1 -Current Size (cm) - Width 0.1 -Current Size (cm) - Depth 0.1 -Total Square Cm 0.01 -Photo Taken No -Epithelialization None Present -Tunneling No -Undermining/Tunneling No -Circular Undermining No -Exudate Amt Small -Exudate Type Serosanguineous -Wound Margin Flat & Intact -Granulation Amt None Present (0 %) -Granulation Quality N/A -Necrosis Amt Small (1-33%) -Necrotic Tissue Type Adherent Slough -Structure Exposed N/A -Texture (Susy-wound Skin Appearance) Assessed, Localized Edema ,Scarring -Moisture (Susy-wound Skin Appearance Assessed,Dry/ ) Scaly -Color (Susy-wound Skin Appearance) Assessed,Rubor -Temperature (Susy-wound Skin No Abnormality Appearance) (Pt Warm) -Tenderness on Palpation (Susy-wound Yes Skin Appearance) -Ulcer Cleansing Rinsed/ Irrigated with Saline -Foul Odor after Cleansing No -Anesthetic Used 4% Lidocaine Solution #37-right 2nd toe -Combined with other wound No -Current Size (cm) - Length 0.8 -Current Size (cm) - Width 0.8 -Current Size (cm) - Depth 0.1 -Total Square Cm 0.64 -Photo Taken No -Epithelialization None Present -Tunneling No -Undermining/Tunneling No -Circular Undermining No -Exudate Amt Small -Exudate Type Serosanguineous -Wound Margin Flat & Intact -Granulation Amt None Present (0 %) -Granulation Quality N/A -Slough/Fibrin Yes -Necrosis Amt Large (67-100%) -Necrotic Tissue Type Adherent Slough -Structure Exposed N/A -Texture (Susy-wound Skin Appearance) Assessed, Localized Edema ,Scarring -Moisture (Susy-wound Skin Appearance Assessed,Dry/ ) Scaly -Color (Susy-wound Skin Appearance) Assessed,Rubor -Temperature (Susy-wound Skin No Abnormality Appearance) (Pt Warm) -Tenderness on Palpation (Susy-wound Yes Skin Appearance) -Ulcer Cleansing Rinsed/ Irrigated with Saline -Foul Odor after Cleansing No -Anesthetic Used 4% Lidocaine Solution [Edema Assessment] -Lower Limb Edema Present Yes -Right Calf (cm) 47.8 -Right Ankle (cm) 30.6 WC - Nurse 2 - General Ulcer CM Notes Start: 11/23/19 11:32 Freq: Status: Active Protocol: Activity Type Activity Date Activity User E-Sign Co-Sign Detail Recorded Client Recorded Date Recorded By Document 11/23/19 12:13 [id number] 11/23/19 12:20 Document 11/23/19 12:19 JF [id number] 11/23/19 12:20 11/23/19 11/23/19 12:13 12:19 Wound Center Nurse 2 [Procedure/Treatment] #40 RIGHT DORSAL FOOT -Time 12:13 -Correct Patient Yes -Correct Side, Site, Position Yes -Correct Procedure Yes -Procedure Performed Yes -Type of Procedure Debridement -Clinical Debridement Subcutaneous -Tissue Removed Subcutaneous -Post Debridement (cm) - Length 3.0 -Post Debridement (cm) - Width 7.2 -Post Debridement (cm) - Depth 0.2 -Total Square (Post) (cm) 21.60 -Area of Debridement (cm) - Length 0.3 -Area of Debridement (cm) - Width 0.7 -Total Square (Area) (cm) 0.21 -Tunneling No -Undermining/Tunneling No -Circular Undermining No -Wound/Ulcer Outcome Not Healed -Ulcer Cleansing Rinsed/ Irrigated with Saline -Foul Odor after Cleansing No -Bioengineered Tissue No -Bleeding Controlled with Pressure -Offloading Yes -Type of Offloading Surgical Shoe -Treatment Response Procedure Tolerated Well -Debridement - Subq, 1st 20sq cm Yes 39-right lateral foot -Time 12:15 -Correct Patient Yes -Correct Side, Site, Position Yes -Correct Procedure Yes -Procedure Performed Yes -Type of Procedure Debridement -Clinical Debridement Subcutaneous -Tissue Removed Subcutaneous -Post Debridement (cm) - Length 0.5 -Post Debridement (cm) - Width 0.5 -Post Debridement (cm) - Depth 0.1 -Total Square (Post) (cm) 0.25 -Area of Debridement (cm) - Length 0.5 -Area of Debridement (cm) - Width 0.5 -Total Square (Area) (cm) 0.25 -Tunneling No -Undermining/Tunneling No -Circular Undermining No -Wound/Ulcer Outcome Not Healed -Ulcer Cleansing Rinsed/ Irrigated with Saline -Foul Odor after Cleansing No -Bioengineered Tissue No -Bleeding Controlled with Pressure -Offloading Yes -Type of Offloading Surgical Shoe -Treatment Response Procedure Tolerated Well -Debridement - Subq, 1st 20sq cm No #35 L Stump -Correct Patient No -Correct Side, Site, Position No -Correct Procedure No -Procedure Performed No #36- R HEEL -Correct Patient No -Correct Side, Site, Position No -Correct Procedure No -Procedure Performed No -Post Debridement (cm) - Length 0 -Post Debridement (cm) - Width 0 -Post Debridement (cm) - Depth 0 -Total Square (Post) (cm) 0 -Area of Debridement (cm) - Length 0 -Area of Debridement (cm) - Width 0 -Total Square (Area) (cm) 0 -Wound/Ulcer Outcome Healed- Epithelialized #37-right 2nd toe -Time 12:17 -Correct Patient Yes -Correct Side, Site, Position Yes -Correct Procedure Yes -Procedure Performed Yes -Type of Procedure Debridement -Clinical Debridement Subcutaneous -Tissue Removed Subcutaneous -Post Debridement (cm) - Length 0.7 -Post Debridement (cm) - Width 0.7 -Post Debridement (cm) - Depth 0.1 -Total Square (Post) (cm) 0.49 -Area of Debridement (cm) - Length 0.7 -Area of Debridement (cm) - Width 0.7 -Total Square (Area) (cm) 0.49 -Tunneling No -Undermining/Tunneling No -Circular Undermining No -Wound/Ulcer Outcome Not Healed -Ulcer Cleansing Rinsed/ Irrigated with Saline -Foul Odor after Cleansing No -Bioengineered Tissue No -Bleeding Controlled with Pressure -Offloading Yes -Type of Offloading Surgical Shoe -Treatment Response Procedure Tolerated Well -Debridement - Subq, 1st 20sq cm No [See Physician Procedure note for Specifics] Pain Scale: 0-10 Numeric [Pain] -Is Patient Pain Free? Yes WC - Nurse 3 - General Ulcer D/C NN Start: 11/23/19 11:32 Freq: Status: Active Protocol: Activity Type Activity Date Activity User E-Sign Co-Sign Detail Recorded Client Recorded Date Recorded By Document 11/23/19 12:29 RB [id number] 11/23/19 12:34 RB 11/23/19 12:29 Wound Care Nurse 3 [Wound Dressing] #40 RIGHT DORSAL FOOT -Ulcer Cleansing Rinsed/ Irrigated with Saline -Primary Dressing Applied Fibracol Plus 4x4 -Primary Dressing Covered/Secured Dry Gauze,Dry with Gauze & Roll Gauze,Secured with Tape -Fibracol Plus 4x4 1 39-right lateral foot -Ulcer Cleansing Rinsed/ Irrigated with Saline -Other Dressing fibracol plus -Primary Dressing Covered/Secured Dry Gauze,Dry with Gauze & Roll Gauze,Secured with Tape #35 L Stump -Ulcer Cleansing Rinsed/ Irrigated with Saline -Other Dressing fibracol plus -Primary Dressing Covered/Secured Dry Gauze,Dry with Gauze & Roll Gauze,Secured with Tape #37-right 2nd toe -Ulcer Cleansing Rinsed/ Irrigated with Saline -Other Dressing fibracol plus -Primary Dressing Covered/Secured Dry Gauze,Dry with Gauze & Roll Gauze,Secured with Tape [Compression Applied] Right -Tubular Bandage Single Layer -Size of Tubigrip Used Size F -Size F ($) 1 Left -Tubular Bandage Single Layer -Size of Tubigrip Used Size F -Size F ($) 1 [Post Procedure Tolerated] -Treatment Response Procedure Tolerated Well Pain Scale: 0-10 Numeric [Pain] -Is Patient Pain Free? Yes Teaching: Wound Center [Wound Center Education] (Items with an * have Printed Materials Available- Please identify what is given to patient under the Teaching materials given to patient and caregiver Section. Compression Wraps & Stockings -Person Taught Patient -Teaching Method Discussion, Demonstration -Response to teaching Verbalize understanding Dressing Your Wound -Person Taught Patient -Teaching Method Discussion, Demonstration -Response to teaching Verbalize understanding WC - Visit Discharge [Visit Discharge Information] -Discharge Condition Stable -Ambulatory Status Wheelchair -Transportation Private Auto -Medication Reconcilliation completed No & provided to patient/care provider -Clinical Summary of Care Provided Yes Musculoskeletal: No Tenderness to Palpation of Joints or Extremities, Muscle Wasting, - - Compartments soft to palpate right lower extremity. Active range of motion of digits x4 of the right foot. Neurological: - - Lack of normal epicritic sensation light touch is consistent with neuropathy status. Psych/Mental Status: Normal Affect, Appropriate Debridement Note Post-Debridement Measurements/Treatment - Nurse 2 - General Ulcer CM Notes Start: 11/23/19 11:32 Freq: Status: Active Protocol: Activity Type Activity Date Activity User E-Sign Co-Sign Detail Recorded Client Recorded Date Recorded By Document 11/23/19 12:13 [id number] 11/23/19 12:20 Document 11/23/19 12:19 [id number] 11/23/19 12:20 11/23/19 11/23/19 12:13 12:19 Wound Center Nurse 2 #40 RIGHT DORSAL FOOT -Time 12:13 -Correct Patient Yes -Correct Side, Site, Position Yes -Correct Procedure Yes -Procedure Performed Yes -Type of Procedure Debridement -Clinical Debridement Subcutaneous -Tissue Removed Subcutaneous -Post Debridement (cm) - Length 3.0 -Post Debridement (cm) - Width 7.2 -Post Debridement (cm) - Depth 0.2 -Total Square (Post) (cm) 21.60 -Area of Debridement (cm) - Length 0.3 -Area of Debridement (cm) - Width 0.7 -Total Square (Area) (cm) 0.21 -Tunneling No -Undermining/Tunneling No -Circular Undermining No -Wound/Ulcer Outcome Not Healed -Ulcer Cleansing Rinsed/ Irrigated with Saline -Foul Odor after Cleansing No -Bioengineered Tissue No -Bleeding Controlled with Pressure -Offloading Yes -Type of Offloading Surgical Shoe -Treatment Response Procedure Tolerated Well -Debridement - Subq, 1st 20sq cm Yes 39-right lateral foot -Time 12:15 -Correct Patient Yes -Correct Side, Site, Position Yes -Correct Procedure Yes -Procedure Performed Yes -Type of Procedure Debridement -Clinical Debridement Subcutaneous -Tissue Removed Subcutaneous -Post Debridement (cm) - Length 0.5 -Post Debridement (cm) - Width 0.5 -Post Debridement (cm) - Depth 0.1 -Total Square (Post) (cm) 0.25 -Area of Debridement (cm) - Length 0.5 -Area of Debridement (cm) - Width 0.5 -Total Square (Area) (cm) 0.25 -Tunneling No -Undermining/Tunneling No -Circular Undermining No -Wound/Ulcer Outcome Not Healed -Ulcer Cleansing Rinsed/ Irrigated with Saline -Foul Odor after Cleansing No -Bioengineered Tissue No -Bleeding Controlled with Pressure -Offloading Yes -Type of Offloading Surgical Shoe -Treatment Response Procedure Tolerated Well -Debridement - Subq, 1st 20sq cm No #35 L Stump -Correct Patient No -Correct Side, Site, Position No -Correct Procedure No -Procedure Performed No #36- R HEEL -Correct Patient No -Correct Side, Site, Position No -Correct Procedure No -Procedure Performed No -Post Debridement (cm) - Length 0 -Post Debridement (cm) - Width 0 -Post Debridement (cm) - Depth 0 -Total Square (Post) (cm) 0 -Area of Debridement (cm) - Length 0 -Area of Debridement (cm) - Width 0 -Total Square (Area) (cm) 0 -Wound/Ulcer Outcome Healed- Epithelialized #37-right 2nd toe -Time 12:17 -Correct Patient Yes -Correct Side, Site, Position Yes -Correct Procedure Yes -Procedure Performed Yes -Type of Procedure Debridement -Clinical Debridement Subcutaneous -Tissue Removed Subcutaneous -Post Debridement (cm) - Length 0.7 -Post Debridement (cm) - Width 0.7 -Post Debridement (cm) - Depth 0.1 -Total Square (Post) (cm) 0.49 -Area of Debridement (cm) - Length 0.7 -Area of Debridement (cm) - Width 0.7 -Total Square (Area) (cm) 0.49 -Tunneling No -Undermining/Tunneling No -Circular Undermining No -Wound/Ulcer Outcome Not Healed -Ulcer Cleansing Rinsed/ Irrigated with Saline -Foul Odor after Cleansing No -Bioengineered Tissue No -Bleeding Controlled with Pressure -Offloading Yes -Type of Offloading Surgical Shoe -Treatment Response Procedure Tolerated Well -Debridement - Subq, 1st 20sq cm No Pain Scale: 0-10 Numeric Is Patient Pain Free? Yes WC - Nurse 3 - General Ulcer D/C NN Start: 11/23/19 11:32 Freq: Status: Active Protocol: Activity Type Activity Date Activity User E-Sign Co-Sign Detail Recorded Client Recorded Date Recorded By Document 11/23/19 12:29 RB [id number] 11/23/19 12:34 RB 11/23/19 12:29 Wound Care Nurse 3 #40 RIGHT DORSAL FOOT -Ulcer Cleansing Rinsed/ Irrigated with Saline -Primary Dressing Applied Fibracol Plus 4x4 -Primary Dressing Covered/Secured with Dry Gauze,Dry Gauze & Roll Gauze,Secured with Tape -Fibracol Plus 4x4 1 39-right lateral foot -Ulcer Cleansing Rinsed/ Irrigated with Saline -Other Dressing fibracol plus -Primary Dressing Covered/Secured with Dry Gauze,Dry Gauze & Roll Gauze,Secured with Tape #35 L Stump -Ulcer Cleansing Rinsed/ Irrigated with Saline -Other Dressing fibracol plus -Primary Dressing Covered/Secured with Dry Gauze,Dry Gauze & Roll Gauze,Secured with Tape #37-right 2nd toe -Ulcer Cleansing Rinsed/ Irrigated with Saline -Other Dressing fibracol plus -Primary Dressing Covered/Secured with Dry Gauze,Dry Gauze & Roll Gauze,Secured with Tape Right -Tubular Bandage Single Layer -Size of Tubigrip Used Size F -Size F ($) 1 Left -Tubular Bandage Single Layer -Size of Tubigrip Used Size F -Size F ($) 1 Treatment Response Procedure Tolerated Well Pain Scale: 0-10 Numeric Is Patient Pain Free? Yes Teaching: Wound Center Compression Wraps & Stockings -Person Taught Patient -Teaching Method Discussion, Demonstration -Response to teaching Verbalize understanding Dressing Your Wound -Person Taught Patient -Teaching Method Discussion, Demonstration -Response to teaching Verbalize understanding WC - Visit Discharge Discharge Condition Stable Ambulatory Status Wheelchair Transportation Private Auto Medication Reconcilliation completed & No provided to patient/care provider Clinical Summary of Care Provided Yes Wound debrided: dorsal 2nd toe, lateral forefoot, dorsal proximal hindfoot Laterality: Right Wound Grade/Stage: grade 1 Type of Debridement: Excisional debridement Anesthesia Used: 5% Lidocaine Gel Depth: in the subcutaneous layer Percentage of wound debrided: 100 Instrument Used: #15 blade Tissue Removed: fibrous, devitalized subcutaneous, biofilm, slough Severity: Fat Layer Exposed Amount of bleeding with debridement: Mild Bleeding Controlled with: Pressure Patient tolerated procedure well Assessment/Plan Active Problems Lymphedema (Chronic) Type 2 diabetes mellitus with diabetic polyneuropathy (Chronic) Ulcer of right foot with fat layer exposed (Chronic) Assessment: Follow-up with surgeon 1. 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 Peripheral vascular disease. Diabetes with neuropathy. Right second toe ulcer, jerez grade 1, no infection. Right plantar lateral forefoot ulcer, jerez grade 1, no infection. Right dorsal hindfoot ulcer, jerez grade 1, no infection Plan: I reviewed and discussed his case. For the anterior aspect left BKA stump, will continue Fibracol dressing changes daily and surgeon follow up. His new ulcers to his right foot are noted. To wash daily with soap and water. To change dressing with Aquacel Ag. To keep pressure off of the ulcer sites and a surgical shoe was fitted and dispensed today. To ambulate with his potential surgical shoe in place if able to. To continue work with home physical therapy. He has an electric scooter and is trying to fix 1 of the parts to keep this morning properly. To continue to optimize healing with improved glycemic index, continued weight reduction, and well-balanced [employer] nutrients. He was reassured no local signs of infection are noted today. Check feet daily monitor for this. To return to clinic in 1 week or call sooner if you have any questions or concerns.
[2019-11-30 11:45] VITALS: BP 159/68; PULSE 74; RESP 20; TEMP 36.2; BMI 47.9
--- NOTE | 2019-11-30 15:46 | PCM.WC.PN ---
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: Chronic Code(s): L97.512 - Non-pressure chronic ulcer of other part of right foot with fat layer exposed (2) Lymphedema Status: Chronic Code(s): I89.0 - Lymphedema, not elsewhere classified (3) Type 2 diabetes mellitus with diabetic polyneuropathy Status: Chronic Qualifiers: Code(s): E11.42 - Type 2 diabetes mellitus with diabetic polyneuropathy (4) Obesity Status: Chronic Code(s): E66.9 - Obesity, unspecified (5) Ulcer of left lower extremity with fat layer exposed Status: Chronic Code(s): L97.922 - Non-pressure chronic ulcer of unspecified part of left lower leg with fat layer exposed Type of Wound Date of Service: 11/30/19 Chief Complaint: Open surgical wound anterior aspect left BKA stump. Right second toe ulcer. Right dorsal foot ulcer. 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 He has been managed by his surgeon. He also had a prior right heel ulcer and relates this has healed and has maintained closure. He does however have other right foot ulcers and has been performing dressing changes as advised. He denies fever, chills, nausea, vomiting. Progress of Wound: Left below-knee amputation with ulcers stable. right foot ulcer is noted and stable - Physical Exam Vital Signs Temp Pulse Resp BP 97.1 F L 74 20 H 159/68 H 11/30/19 11:45 11/30/19 11:45 11/30/19 11:45 11/30/19 11:45 General: Alert, Oriented x3, Cooperative, No apparent distress HEENT: Atraumatic Extremities: No cyanosis, Capillary Refill Less than 3 Seconds, No Calf Tenderness, Diminished Peripheral Pulses, Edema, - - Left below-knee amputation Skin: Ulcer/ Wound - No purulence, erythema, streaking, odor, infection. Adjacent skin is hairless and atrophic Wound Measurements and Assessment WC - Nurse 1 - General Ulcer Measurement Start: 11/23/19 11:32 Freq: Status: Active Protocol: Activity Type Activity Date Activity User E-Sign Co-Sign Detail Recorded Client Recorded Date Recorded By Document 11/30/19 11:45 DL [id number] 11/30/19 12:02 DL 11/30/19 11:45 Wound Center Nurse 1 [Ulcer Assessment] 40. L stump lateral -Combined with other wound No -Current Size (cm) - Length 2 -Current Size (cm) - Width 2 -Current Size (cm) - Depth 0.1 -Total Square Cm 4 -Photo Taken Yes -Tunneling No -Undermining/Tunneling No -Circular Undermining No -Exudate Amt Small -Exudate Type Serosanguineous -Wound Margin Flat & Intact -Granulation Amt Medium (34-66%) -Granulation Quality [place] -Slough/Fibrin Yes -Necrosis Amt Medium (34-66%) -Necrotic Tissue Type Adherent Slough -Structure Exposed N/A -Texture (Susy-wound Skin Appearance) Assessed -Moisture (Susy-wound Skin Appearance Assessed,Dry/ ) Scaly -Color (Susy-wound Skin Appearance) Assessed -Temperature (Susy-wound Skin No Abnormality Appearance) (Pt Warm) -Tenderness on Palpation (Susy-wound No Skin Appearance) -Ulcer Cleansing Wound Cleanser -Foul Odor after Cleansing No -Anesthetic Used 4% Lidocaine Solution #40 RIGHT DORSAL FOOT -Combined with other wound No -Current Size (cm) - Length 0.7 -Current Size (cm) - Width 0.4 -Current Size (cm) - Depth 0.1 -Total Square Cm 0.28 -Tunneling No -Undermining/Tunneling No -Circular Undermining No -Exudate Amt Small -Exudate Type Serosanguineous -Wound Margin Flat & Intact -Granulation Amt Medium (34-66%) -Granulation Quality [place] -Slough/Fibrin Yes -Necrosis Amt Medium (34-66%) -Necrotic Tissue Type Adherent Slough -Structure Exposed N/A -Texture (Susy-wound Skin Appearance) Assessed -Moisture (Susy-wound Skin Appearance Assessed ) -Color (Susy-wound Skin Appearance) Assessed -Temperature (Susy-wound Skin No Abnormality Appearance) (Pt Warm) -Tenderness on Palpation (Susy-wound No Skin Appearance) -Ulcer Cleansing Wound Cleanser -Foul Odor after Cleansing No -Anesthetic Used 4% Lidocaine Solution 39-right lateral foot -Combined with other wound No -Current Size (cm) - Length 5.4 -Current Size (cm) - Width 5.2 -Current Size (cm) - Depth 0.1 -Total Square Cm 28.08 -Tunneling No -Undermining/Tunneling No -Circular Undermining No -Exudate Amt Small -Exudate Type Serosanguineous -Wound Margin Flat & Intact -Granulation Amt Medium (34-66%) -Granulation Quality [place] -Slough/Fibrin Yes -Necrosis Amt Small (1-33%) -Necrotic Tissue Type Adherent Slough -Structure Exposed N/A -Texture (Susy-wound Skin Appearance) Assessed -Moisture (Susy-wound Skin Appearance Assessed ) -Color (Susy-wound Skin Appearance) Assessed -Temperature (Susy-wound Skin No Abnormality Appearance) (Pt Warm) -Tenderness on Palpation (Susy-wound No Skin Appearance) -Ulcer Cleansing Wound Cleanser -Foul Odor after Cleansing No -Anesthetic Used 4% Lidocaine Solution #35 L Stump -Combined with other wound No -Current Size (cm) - Length 1 -Current Size (cm) - Width 2.7 -Current Size (cm) - Depth 0.1 -Total Square Cm 2.7 -Tunneling No -Undermining/Tunneling No -Circular Undermining No -Exudate Amt Small -Exudate Type Serosanguineous -Wound Margin Flat & Intact -Granulation Amt Medium (34-66%) -Granulation Quality [place] -Slough/Fibrin Yes -Necrosis Amt Small (1-33%) -Necrotic Tissue Type Adherent Slough -Structure Exposed N/A -Texture (Susy-wound Skin Appearance) Assessed -Moisture (Susy-wound Skin Appearance Assessed ) -Color (Susy-wound Skin Appearance) Assessed -Temperature (Susy-wound Skin No Abnormality Appearance) (Pt Warm) -Tenderness on Palpation (Susy-wound No Skin Appearance) -Ulcer Cleansing Wound Cleanser -Foul Odor after Cleansing No -Anesthetic Used 4% Lidocaine Solution #37-right 2nd toe -Combined with other wound No -Current Size (cm) - Length 0.8 -Current Size (cm) - Width 0.7 -Current Size (cm) - Depth 0.3 -Total Square Cm 0.56 -Tunneling No -Undermining/Tunneling No -Circular Undermining No -Exudate Amt Small -Exudate Type Serosanguineous -Wound Margin Flat & Intact -Granulation Amt Medium (34-66%) -Granulation Quality [place] -Slough/Fibrin Yes -Necrosis Amt Medium (34-66%) -Necrotic Tissue Type Adherent Slough -Structure Exposed N/A -Texture (Susy-wound Skin Appearance) Assessed,Callus -Moisture (Susy-wound Skin Appearance Assessed ) -Color (Susy-wound Skin Appearance) Assessed -Temperature (Susy-wound Skin No Abnormality Appearance) (Pt Warm) -Tenderness on Palpation (Susy-wound No Skin Appearance) -Ulcer Cleansing Wound Cleanser -Foul Odor after Cleansing No -Anesthetic Used 4% Lidocaine Solution WC - Nurse 2 - General Ulcer CM Notes Start: 11/23/19 11:32 Freq: Status: Active Protocol: Activity Type Activity Date Activity User E-Sign Co-Sign Detail Recorded Client Recorded Date Recorded By Document 11/30/19 12:21 NORRIS [id number] 11/30/19 12:28 NORRIS 11/30/19 12:21 Wound Center Nurse 2 [Procedure/Treatment] 40. L stump lateral -Time 12:21 -Correct Patient Yes -Correct Side, Site, Position Yes -Correct Procedure Yes -Procedure Performed Yes -Type of Procedure Debridement -Clinical Debridement Subcutaneous -Tissue Removed Subcutaneous -Post Debridement (cm) - Length 2.1 -Post Debridement (cm) - Width 2.1 -Post Debridement (cm) - Depth 0.1 -Total Square (Post) (cm) 4.41 -Area of Debridement (cm) - Length 2.1 -Area of Debridement (cm) - Width 2.1 -Total Square (Area) (cm) 4.41 -Tunneling No -Undermining/Tunneling No -Circular Undermining No -Wound/Ulcer Outcome Not Healed -Ulcer Cleansing Rinsed/ Irrigated with Saline -Foul Odor after Cleansing No -Bioengineered Tissue No -Bleeding Controlled with Pressure -Offloading No -Treatment Response Procedure Tolerated Well -Debridement - Subq, 1st 20sq cm No #40 RIGHT DORSAL FOOT -Time 12:22 -Correct Patient Yes -Correct Side, Site, Position Yes -Correct Procedure Yes -Procedure Performed Yes -Type of Procedure Debridement -Clinical Debridement Subcutaneous -Tissue Removed Subcutaneous -Post Debridement (cm) - Length 0.8 -Post Debridement (cm) - Width 0.5 -Post Debridement (cm) - Depth 0.1 -Total Square (Post) (cm) 0.40 -Area of Debridement (cm) - Length 0.8 -Area of Debridement (cm) - Width 0.5 -Total Square (Area) (cm) 0.40 -Tunneling No -Undermining/Tunneling No -Circular Undermining No -Wound/Ulcer Outcome Not Healed -Ulcer Cleansing Rinsed/ Irrigated with Saline -Foul Odor after Cleansing No -Bioengineered Tissue No -Bleeding Controlled with Pressure -Offloading Yes -Type of Offloading Surgical Shoe -Treatment Response Procedure Tolerated Well -Debridement - Subq, 1st 20sq cm No 39-right lateral foot -Time 12:23 -Correct Patient Yes -Correct Side, Site, Position Yes -Correct Procedure Yes -Procedure Performed Yes -Type of Procedure Debridement -Clinical Debridement Subcutaneous -Tissue Removed Subcutaneous -Post Debridement (cm) - Length 5.5 -Post Debridement (cm) - Width 5.2 -Post Debridement (cm) - Depth 0.1 -Total Square (Post) (cm) 28.60 -Area of Debridement (cm) - Length 5.5 -Area of Debridement (cm) - Width 5.2 -Total Square (Area) (cm) 28.60 -Tunneling No -Undermining/Tunneling No -Circular Undermining No -Wound/Ulcer Outcome Not Healed -Ulcer Cleansing Rinsed/ Irrigated with Saline -Foul Odor after Cleansing No -Bioengineered Tissue No -Bleeding Controlled with Pressure -Offloading No -Treatment Response Procedure Tolerated Well -Debridement - Subq, 1st 20sq cm Yes -Debridement, SubQ, ea addt'l 20sq cm 1 or part thereof #35 L Stump -Time 12:24 -Correct Patient Yes -Correct Side, Site, Position Yes -Correct Procedure Yes -Procedure Performed Yes -Type of Procedure Debridement -Clinical Debridement Subcutaneous -Tissue Removed Subcutaneous -Post Debridement (cm) - Length 1.0 -Post Debridement (cm) - Width 2.8 -Post Debridement (cm) - Depth 0.1 -Total Square (Post) (cm) 2.80 -Area of Debridement (cm) - Length 1.0 -Area of Debridement (cm) - Width 2.8 -Total Square (Area) (cm) 2.80 -Tunneling No -Undermining/Tunneling No -Circular Undermining No -Wound/Ulcer Outcome Not Healed -Ulcer Cleansing Rinsed/ Irrigated with Saline -Foul Odor after Cleansing No -Bioengineered Tissue No -Bleeding Controlled with Pressure -Offloading No -Treatment Response Procedure Tolerated Well -Debridement - Subq, 1st 20sq cm No #37-right 2nd toe -Time 12:24 -Correct Patient Yes -Correct Side, Site, Position Yes -Correct Procedure Yes -Procedure Performed Yes -Type of Procedure Debridement -Clinical Debridement Subcutaneous -Tissue Removed Subcutaneous -Post Debridement (cm) - Length 0.8 -Post Debridement (cm) - Width 0.8 -Post Debridement (cm) - Depth 0.3 -Total Square (Post) (cm) 0.64 -Area of Debridement (cm) - Length 0.8 -Area of Debridement (cm) - Width 0.8 -Total Square (Area) (cm) 0.64 -Tunneling No -Undermining/Tunneling No -Circular Undermining No -Wound/Ulcer Outcome Not Healed -Ulcer Cleansing Rinsed/ Irrigated with Saline -Foul Odor after Cleansing No -Bioengineered Tissue No -Bleeding Controlled with Pressure -Offloading Yes -Type of Offloading Surgical Shoe -Treatment Response Procedure Tolerated Well -Debridement - Subq, 1st 20sq cm No [See Physician Procedure note for Specifics] Pain Scale: 0-10 Numeric [Pain] -Is Patient Pain Free? Yes - Nurse 3 - General Ulcer D/C NN Start: 11/23/19 11:32 Freq: Status: Active Protocol: Activity Type Activity Date Activity User E-Sign Co-Sign Detail Recorded Client Recorded Date Recorded By Document 11/30/19 12:33 NORRIS [id number] 11/30/19 12:35 NORRIS 11/30/19 12:33 Wound Care Nurse 3 [Wound Dressing] 40. L stump lateral -Ulcer Cleansing Rinsed/ Irrigated with Saline -Foul Odor after Cleansing No -Primary Dressing Applied Fibracol Plus 4x4 -Primary Dressing Covered/Secured Dry Gauze & with Roll Gauze, Secured with Tape -Fibracol Plus 4x4 1 #40 RIGHT DORSAL FOOT -Ulcer Cleansing Rinsed/ Irrigated with Saline -Foul Odor after Cleansing No -Primary Dressing Applied Fibracol Plus 4x4 -Primary Dressing Covered/Secured Dry Gauze & with Roll Gauze, Secured with Tape -Fibracol Plus 4x4 1 39-right lateral foot -Ulcer Cleansing Rinsed/ Irrigated with Saline -Foul Odor after Cleansing No -Primary Dressing Applied Fibracol Plus 4x4 -Primary Dressing Covered/Secured Dry Gauze & with Roll Gauze, Secured with Tape -Fibracol Plus 4x4 0 #35 L Stump -Ulcer Cleansing Rinsed/ Irrigated with Saline -Foul Odor after Cleansing No -Primary Dressing Applied Fibracol Plus 4x4 -Primary Dressing Covered/Secured Dry Gauze & with Roll Gauze, Secured with Tape -Fibracol Plus 4x4 0 #37-right 2nd toe -Ulcer Cleansing Rinsed/ Irrigated with Saline -Foul Odor after Cleansing No -Primary Dressing Applied Fibracol Plus 4x4 -Primary Dressing Covered/Secured Dry Gauze & with Roll Gauze, Secured with Tape -Fibracol Plus 4x4 0 [Compression Applied] Right -Tubular Bandage Single Layer -Size of Tubigrip Used Size F -Size F ($) 1 Left -Tubular Bandage Single Layer -Size of Tubigrip Used Size F -Size F ($) 1 Pain Scale: 0-10 Numeric [Pain] -Is Patient Pain Free? Yes Teaching: Wound Center [Wound Center Education] (Items with an * have Printed Materials Available- Please identify what is given to patient under the Teaching materials given to patient and caregiver Section. Compression Wraps & Stockings -Person Taught Patient -Teaching Method Discussion, Demonstration -Response to teaching Return demonstration, Verbalize understanding - Visit Discharge [Visit Discharge Information] -Discharge Condition Stable -Ambulatory Status Wheelchair -Transportation Ambulance -Medication Reconcilliation completed Yes & provided to patient/care provider -Clinical Summary of Care Provided Yes Musculoskeletal: No Tenderness to Palpation of Joints or Extremities, Muscle Wasting, - - Hallux amputation Neurological: - - Lack of normal epicritic sensation Psych/Mental Status: Normal Affect, Appropriate Debridement Note Post-Debridement Measurements/Treatment - Nurse 2 - General Ulcer CM Notes Start: 11/23/19 11:32 Freq: Status: Active Protocol: Activity Type Activity Date Activity User E-Sign Co-Sign Detail Recorded Client Recorded Date Recorded By Document 11/23/19 12:13 [id number] 11/23/19 12:20 Document 11/23/19 12:19 [id number] 11/23/19 12:20 Document 11/30/19 12:21 [id number] 11/30/19 12:28 11/23/19 11/23/19 11/30/19 12:13 12:19 12:21 Wound Center Nurse 2 40. L stump lateral -Time 12:21 -Correct Patient Yes -Correct Side, Site, Position Yes -Correct Procedure Yes -Procedure Performed Yes -Type of Procedure Debridement -Clinical Debridement Subcutaneous -Tissue Removed Subcutaneous -Post Debridement (cm) - Length 2.1 -Post Debridement (cm) - Width 2.1 -Post Debridement (cm) - Depth 0.1 -Total Square (Post) (cm) 4.41 -Area of Debridement (cm) - Length 2.1 -Area of Debridement (cm) - Width 2.1 -Total Square (Area) (cm) 4.41 -Tunneling No -Undermining/Tunneling No -Circular Undermining No -Wound/Ulcer Outcome Not Healed -Ulcer Cleansing Rinsed/ Irrigated with Saline -Foul Odor after Cleansing No -Bioengineered Tissue No -Bleeding Controlled with Pressure -Offloading No -Treatment Response Procedure Tolerated Well -Debridement - Subq, 20sq cm No #40 RIGHT DORSAL FOOT -Time 12:13 12:22 -Correct Patient Yes Yes -Correct Side, Site, Position Yes Yes -Correct Procedure Yes Yes -Procedure Performed Yes Yes -Type of Procedure Debridement Debridement -Clinical Debridement Subcutaneous Subcutaneous -Tissue Removed Subcutaneous Subcutaneous -Post Debridement (cm) - Length 3.0 0.8 -Post Debridement (cm) - Width 7.2 0.5 -Post Debridement (cm) - Depth 0.2 0.1 -Total Square (Post) (cm) 21.60 0.40 -Area of Debridement (cm) - Length 0.3 0.8 -Area of Debridement (cm) - Width 0.7 0.5 -Total Square (Area) (cm) 0.21 0.40 -Tunneling No No -Undermining/Tunneling No No -Circular Undermining No No -Wound/Ulcer Outcome Not Healed Not Healed -Ulcer Cleansing Rinsed/ Rinsed/ Irrigated with Irrigated with Saline Saline -Foul Odor after Cleansing No No -Bioengineered Tissue No No -Bleeding Controlled with Pressure Pressure -Offloading Yes Yes -Type of Offloading Surgical Shoe Surgical Shoe -Treatment Response Procedure Procedure Tolerated Well Tolerated Well -Debridement - Subq, 1st 20sq cm Yes No 39-right lateral foot -Time 12:15 12:23 -Correct Patient Yes Yes -Correct Side, Site, Position Yes Yes -Correct Procedure Yes Yes -Procedure Performed Yes Yes -Type of Procedure Debridement Debridement -Clinical Debridement Subcutaneous Subcutaneous -Tissue Removed Subcutaneous Subcutaneous -Post Debridement (cm) - Length 0.5 5.5 -Post Debridement (cm) - Width 0.5 5.2 -Post Debridement (cm) - Depth 0.1 0.1 -Total Square (Post) (cm) 0.25 28.60 -Area of Debridement (cm) - Length 0.5 5.5 -Area of Debridement (cm) - Width 0.5 5.2 -Total Square (Area) (cm) 0.25 28.60 -Tunneling No No -Undermining/Tunneling No No -Circular Undermining No No -Wound/Ulcer Outcome Not Healed Not Healed -Ulcer Cleansing Rinsed/ Rinsed/ Irrigated with Irrigated with Saline Saline -Foul Odor after Cleansing No No -Bioengineered Tissue No No -Bleeding Controlled with Pressure Pressure -Offloading Yes No -Type of Offloading Surgical Shoe -Treatment Response Procedure Procedure Tolerated Well Tolerated Well -Debridement - Subq, 1st 20sq cm No Yes -Debridement, SubQ, ea addt'l 20sq cm 1 or part thereof #35 L Stump -Time 12:24 -Correct Patient No Yes -Correct Side, Site, Position No Yes -Correct Procedure No Yes -Procedure Performed No Yes -Type of Procedure Debridement -Clinical Debridement Subcutaneous -Tissue Removed Subcutaneous -Post Debridement (cm) - Length 1.0 -Post Debridement (cm) - Width 2.8 -Post Debridement (cm) - Depth 0.1 -Total Square (Post) (cm) 2.80 -Area of Debridement (cm) - Length 1.0 -Area of Debridement (cm) - Width 2.8 -Total Square (Area) (cm) 2.80 -Tunneling No -Undermining/Tunneling No -Circular Undermining No -Wound/Ulcer Outcome Not Healed -Ulcer Cleansing Rinsed/ Irrigated with Saline -Foul Odor after Cleansing No -Bioengineered Tissue No -Bleeding Controlled with Pressure -Offloading No -Treatment Response Procedure Tolerated Well -Debridement - Subq, 1st 20sq cm No #36- R HEEL -Correct Patient No -Correct Side, Site, Position No -Correct Procedure No -Procedure Performed No -Post Debridement (cm) - Length 0 -Post Debridement (cm) - Width 0 -Post Debridement (cm) - Depth 0 -Total Square (Post) (cm) 0 -Area of Debridement (cm) - Length 0 -Area of Debridement (cm) - Width 0 -Total Square (Area) (cm) 0 -Wound/Ulcer Outcome Healed- Epithelialized #37-right 2nd toe -Time 12:17 12:24 -Correct Patient Yes Yes -Correct Side, Site, Position Yes Yes -Correct Procedure Yes Yes -Procedure Performed Yes Yes -Type of Procedure Debridement Debridement -Clinical Debridement Subcutaneous Subcutaneous -Tissue Removed Subcutaneous Subcutaneous -Post Debridement (cm) - Length 0.7 0.8 -Post Debridement (cm) - Width 0.7 0.8 -Post Debridement (cm) - Depth 0.1 0.3 -Total Square (Post) (cm) 0.49 0.64 -Area of Debridement (cm) - Length 0.7 0.8 -Area of Debridement (cm) - Width 0.7 0.8 -Total Square (Area) (cm) 0.49 0.64 -Tunneling No No -Undermining/Tunneling No No -Circular Undermining No No -Wound/Ulcer Outcome Not Healed Not Healed -Ulcer Cleansing Rinsed/ Rinsed/ Irrigated with Irrigated with Saline Saline -Foul Odor after Cleansing No No -Bioengineered Tissue No No -Bleeding Controlled with Pressure Pressure -Offloading Yes Yes -Type of Offloading Surgical Shoe Surgical Shoe -Treatment Response Procedure Procedure Tolerated Well Tolerated Well -Debridement - Subq, 1st 20sq cm No No Pain Scale: 0-10 Numeric Is Patient Pain Free? Yes Yes - Nurse 3 - General Ulcer D/C NN Start: 11/23/19 11:32 Freq: Status: Active Protocol: Activity Type Activity Date Activity User E-Sign Co-Sign Detail Recorded Client Recorded Date Recorded By Document 11/23/19 12:29 RB [id number] 11/23/19 12:34 RB Document 11/30/19 12:33 [id number] [id number] 11/30/19 12:35 11/23/19 11/30/19 12:29 12:33 Wound Care Nurse 3 40. L stump lateral -Ulcer Cleansing Rinsed/ Irrigated with Saline -Foul Odor after Cleansing No -Primary Dressing Applied Fibracol Plus 4x4 -Primary Dressing Covered/Secured with Dry Gauze & Roll Gauze, Secured with Tape -Fibracol Plus 4x4 1 #40 RIGHT DORSAL FOOT -Ulcer Cleansing Rinsed/ Rinsed/ Irrigated with Irrigated with Saline Saline -Foul Odor after Cleansing No -Primary Dressing Applied Fibracol Plus Fibracol Plus 4x4 4x4 -Primary Dressing Covered/Secured with Dry Gauze,Dry Dry Gauze & Gauze & Roll Roll Gauze, Gauze,Secured Secured with with Tape Tape -Fibracol Plus 4x4 1 1 39-right lateral foot -Ulcer Cleansing Rinsed/ Rinsed/ Irrigated with Irrigated with Saline Saline -Foul Odor after Cleansing No -Primary Dressing Applied Fibracol Plus 4x4 -Other Dressing fibracol plus -Primary Dressing Covered/Secured with Dry Gauze,Dry Dry Gauze & Gauze & Roll Roll Gauze, Gauze,Secured Secured with with Tape Tape -Fibracol Plus 4x4 0 #35 L Stump -Ulcer Cleansing Rinsed/ Rinsed/ Irrigated with Irrigated with Saline Saline -Foul Odor after Cleansing No -Primary Dressing Applied Fibracol Plus 4x4 -Other Dressing fibracol plus -Primary Dressing Covered/Secured with Dry Gauze,Dry Dry Gauze & Gauze & Roll Roll Gauze, Gauze,Secured Secured with with Tape Tape -Fibracol Plus 4x4 0 #37-right 2nd toe -Ulcer Cleansing Rinsed/ Rinsed/ Irrigated with Irrigated with Saline Saline -Foul Odor after Cleansing No -Primary Dressing Applied Fibracol Plus 4x4 -Other Dressing fibracol plus -Primary Dressing Covered/Secured with Dry Gauze,Dry Dry Gauze & Gauze & Roll Roll Gauze, Gauze,Secured Secured with with Tape Tape -Fibracol Plus 4x4 0 Right -Tubular Bandage Single Layer Single Layer -Size of Tubigrip Used Size F Size F -Size F ($) 1 1 Left -Tubular Bandage Single Layer Single Layer -Size of Tubigrip Used Size F Size F -Size F ($) 1 1 Treatment Response Procedure Tolerated Well Pain Scale: 0-10 Numeric Is Patient Pain Free? Yes Yes Teaching: Wound Center Compression Wraps & Stockings -Person Taught Patient Patient -Teaching Method Discussion, Discussion, Demonstration Demonstration -Response to teaching Verbalize Return understanding demonstration, Verbalize understanding Dressing Your Wound -Person Taught Patient -Teaching Method Discussion, Demonstration -Response to teaching Verbalize understanding WC - Visit Discharge Discharge Condition Stable Stable Ambulatory Status Wheelchair Wheelchair Transportation Private Auto Ambulance Medication Reconcilliation completed & No Yes provided to patient/care provider Clinical Summary of Care Provided Yes Yes Wound debrided: lateral foot, dorsal 2nd toe Laterality: Right Wound Grade/Stage: grade 1 Type of Debridement: Excisional debridement Anesthesia Used: 5% Lidocaine Gel Depth: in the subcutaneous layer Percentage of wound debrided: 100 Instrument Used: #15 blade Tissue Removed: fibrous, devitalized subcutaneous, biofilm, slough Severity: Fat Layer Exposed Amount of bleeding with debridement: Mild Bleeding Controlled with: Pressure Patient tolerated procedure well - Additional Wound Wound debrided: bka stump ulcers Laterality: Left Wound Grade/Stage: surgical site/grade 1 Type of Debridement: Excisional debridement Anesthesia Used: 5% Lidocaine Gel Depth: in the subcutaneous layer Percentage of wound debrided: 100 Instrument Used: #15 blade Tissue Removed: fibrous, devitalized subcutaneous, biofilm, slough Severity: Fat Layer Exposed Amount of bleeding with debridement: Mild Bleeding Controlled with: Pressure Patient tolerated procedure: Patient tolerated procedure well Assessment/Plan Assessment: Open surgical wound anterior aspect left BKA stump. Peripheral vascular disease. Diabetes with neuropathy. Right second toe ulcer, jerez grade 1, no infection. Right plantar lateral forefoot ulcer, jerez grade 1, no infection. Right dorsal hindfoot ulcer, jerez grade 1, no infection Plan: I reviewed and discussed his case. For the anterior aspect left BKA stump, will continue Fibracol dressing changes daily. His ulcers to his right foot are noted. To wash daily with soap and water. To change dressing with Aquacel Ag. To keep pressure off of the ulcer sites and a surgical shoe was fitted and dispensed today. To ambulate with his potential surgical shoe in place if able to. To continue work with home physical therapy. He has an electric scooter and is trying to fix 1 of the parts to keep this morning properly. To continue to optimize healing with improved glycemic index, continued weight reduction, and well-balanced [employer] nutrients. He was reassured no local signs of infection are noted today. Check feet daily monitor for this. To return to clinic in 1 week or call sooner if you have any questions or concerns.
[2019-12-07 11:45] VITALS: BP 165/82; PULSE 79; RESP 16; TEMP 36.2; BMI 47.9
--- NOTE | 2019-12-07 12:19 | PCM.WC.PN ---
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: Chronic Current Visit: Yes Code(s): L97.512 - Non-pressure chronic ulcer of other part of right foot with fat layer exposed (2) Lymphedema Status: Chronic Current Visit: Yes Code(s): I89.0 - Lymphedema, not elsewhere classified (3) Type 2 diabetes mellitus with diabetic polyneuropathy Status: Chronic Current Visit: Yes Qualifiers: Code(s): E11.42 - Type 2 diabetes mellitus with diabetic polyneuropathy (4) Obesity Status: Chronic Current Visit: Yes Code(s): E66.9 - Obesity, unspecified (5) Ulcer of left lower extremity with fat layer exposed Status: Chronic Current Visit: Yes Code(s): L97.922 - Non-pressure chronic ulcer of unspecified part of left lower leg with fat layer exposed Type of Wound Date of Service: 12/07/19 Chief Complaint: Open surgical wound anterior aspect left BKA stump. Right second toe ulcer. Right dorsal foot ulcer. 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 He has been managed by his surgeon. He also has multiple right foot ulcers, and has been performing dressing changes as advised. He denies fever, chills, nausea, vomiting. He continues to lose weight and better control his glucose levels. He obtained a surgical shoe off line and presents with that today. Progress of Wound: Left below-knee amputation with ulcers stable. right foot ulcer is noted and stable - Physical Exam Vital Signs Temp Pulse Resp BP 97.2 F L 79 16 165/82 H 12/07/19 11:45 12/07/19 11:45 12/07/19 11:45 12/07/19 11:45 General: Alert, Oriented x3, Cooperative, No apparent distress HEENT: Atraumatic Extremities: No cyanosis, Capillary Refill Less than 3 Seconds, No Calf Tenderness, Diminished Peripheral Pulses, Edema Skin: Ulcer/ Wound - No purulence, erythema, streaking, odor, infection. Adjacent skin is hairless and atrophic. There is no deep tissue exposure noted Wound Measurements and Assessment WC - Nurse 1 - General Ulcer Measurement Start: 11/23/19 11:32 Freq: Status: Active Protocol: Activity Type Activity Date Activity User E-Sign Co-Sign Detail Recorded Client Recorded Date Recorded By Document 12/07/19 11:45 [facility] [id number] 12/07/19 11:57 [facility] 12/07/19 11:45 Wound Center Nurse 1 [Ulcer Assessment] 41. L stump lateral -Combined with other wound No -Current Size (cm) - Length 2.5 -Current Size (cm) - Width 1.9 -Current Size (cm) - Depth 0.1 -Total Square Cm 4.75 -Photo Taken No -Epithelialization None Present -Tunneling No -Undermining/Tunneling No -Circular Undermining No -Exudate Amt Medium -Exudate Type Serosanguineous -Wound Margin Distinct, Outline Attached -Granulation Amt Medium (34-66%) -Granulation Quality Red -Slough/Fibrin Yes -Necrosis Amt None Present (0 %) -Necrotic Tissue Type Adherent Slough -Structure Exposed N/A -Texture (Susy-wound Skin Appearance) Excoriation -Moisture (Susy-wound Skin Appearance Dry/Scaly ) -Color (Susy-wound Skin Appearance) Hemosiderin Staining -Temperature (Susy-wound Skin No Abnormality Appearance) (Pt Warm) -Tenderness on Palpation (Susy-wound No Skin Appearance) -Ulcer Cleansing Rinsed/ Irrigated with Saline -Foul Odor after Cleansing No -Anesthetic Used 4% Lidocaine Solution #40 RIGHT DORSAL FOOT -Combined with other wound No -Current Size (cm) - Length 0.1 -Current Size (cm) - Width 0.1 -Current Size (cm) - Depth 0.1 -Total Square Cm 0.01 -Photo Taken No -Epithelialization Large 67-100% 39-right lateral foot -Combined with other wound No -Current Size (cm) - Length 5.3 -Current Size (cm) - Width 3.1 -Current Size (cm) - Depth 0.2 -Total Square Cm 16.43 -Photo Taken No -Epithelialization None Present -Tunneling No -Undermining/Tunneling No -Circular Undermining No -Exudate Amt Large -Exudate Type Serous -Wound Margin Distinct, Outline Attached -Granulation Amt Large (67-100%) -Granulation Quality Red -Slough/Fibrin Yes -Necrosis Amt None Present (0 %) -Necrotic Tissue Type Adherent Slough -Texture (Susy-wound Skin Appearance) No Abnormality, Assessed -Moisture (Susy-wound Skin Appearance Dry/Scaly ) -Color (Susy-wound Skin Appearance) No Abnormality, Assessed -Temperature (Susy-wound Skin No Abnormality Appearance) (Pt Warm) -Tenderness on Palpation (Susy-wound No Skin Appearance) -Ulcer Cleansing Rinsed/ Irrigated with Saline -Foul Odor after Cleansing No -Anesthetic Used 4% Lidocaine Solution #35 L Stump -Combined with other wound No -Current Size (cm) - Length 1.8 -Current Size (cm) - Width 3.0 -Current Size (cm) - Depth 0.3 -Total Square Cm 5.40 -Photo Taken No -Epithelialization None Present -Tunneling No -Undermining/Tunneling No -Circular Undermining No -Exudate Amt Medium -Wound Margin Distinct, Outline Attached -Granulation Amt Large (67-100%) -Granulation Quality Red -Slough/Fibrin Yes -Necrosis Amt None Present (0 %) -Necrotic Tissue Type Adherent Slough -Texture (Susy-wound Skin Appearance) No Abnormality, Assessed -Moisture (Susy-wound Skin Appearance Dry/Scaly ) -Color (Susy-wound Skin Appearance) No Abnormality, Assessed -Temperature (Susy-wound Skin No Abnormality Appearance) (Pt Warm) -Tenderness on Palpation (Susy-wound No Skin Appearance) -Ulcer Cleansing Rinsed/ Irrigated with Saline -Foul Odor after Cleansing No -Anesthetic Used 4% Lidocaine Solution #37-right 2nd toe -Combined with other wound No -Current Size (cm) - Length 0.9 -Current Size (cm) - Width 0.6 -Current Size (cm) - Depth 0.4 -Total Square Cm 0.54 -Photo Taken No -Epithelialization None Present -Tunneling No -Undermining/Tunneling No -Circular Undermining No -Exudate Amt Medium -Exudate Type Serosanguineous -Wound Margin Distinct, Outline Attached -Granulation Amt Large (67-100%) -Granulation Quality Red -Slough/Fibrin Yes -Necrosis Amt None Present (0 %) -Necrotic Tissue Type Adherent Slough -Structure Exposed N/A -Temperature (Susy-wound Skin No Abnormality Appearance) (Pt Warm) -Tenderness on Palpation (Susy-wound No Skin Appearance) -Ulcer Cleansing Rinsed/ Irrigated with Saline -Foul Odor after Cleansing No -Anesthetic Used 4% Lidocaine Solution [Edema Assessment] -Lower Limb Edema Present NA Musculoskeletal: No Tenderness to Palpation of Joints or Extremities, Muscle Wasting, - - Left below-knee amputation. Right hallux amputation Lymphatic: - - Lower extremity edema is consistent with lymphedema Neurological: - - Lack of normal epicritic sensation light touch is consistent with his neuropathy status Psych/Mental Status: Normal Affect, Appropriate Debridement Note Post-Debridement Measurements/Treatment WC - Nurse 2 - General Ulcer CM Notes Start: 11/23/19 11:32 Freq: Status: Active Protocol: Activity Type Activity Date Activity User E-Sign Co-Sign Detail Recorded Client Recorded Date Recorded By Document 11/23/19 12:13 [id number] 11/23/19 12:20 Document 11/23/19 12:19 [id number] 11/23/19 12:20 Document 11/30/19 12:21 [id number] 11/30/19 12:28 11/23/19 11/23/19 11/30/19 12:13 12:19 12:21 Wound Center Nurse 2 41. L stump lateral -Time 12:21 -Correct Patient Yes -Correct Side, Site, Position Yes -Correct Procedure Yes -Procedure Performed Yes -Type of Procedure Debridement -Clinical Debridement Subcutaneous -Tissue Removed Subcutaneous -Post Debridement (cm) - Length 2.1 -Post Debridement (cm) - Width 2.1 -Post Debridement (cm) - Depth 0.1 -Total Square (Post) (cm) 4.41 -Area of Debridement (cm) - Length 2.1 -Area of Debridement (cm) - Width 2.1 -Total Square (Area) (cm) 4.41 -Tunneling No -Undermining/Tunneling No -Circular Undermining No -Wound/Ulcer Outcome Not Healed -Ulcer Cleansing Rinsed/ Irrigated with Saline -Foul Odor after Cleansing No -Bioengineered Tissue No -Bleeding Controlled with Pressure -Offloading No -Treatment Response Procedure Tolerated Well -Debridement - Subq, 1st 20sq cm No #40 RIGHT DORSAL FOOT -Time 12:13 12:22 -Correct Patient Yes Yes -Correct Side, Site, Position Yes Yes -Correct Procedure Yes Yes -Procedure Performed Yes Yes -Type of Procedure Debridement Debridement -Clinical Debridement Subcutaneous Subcutaneous -Tissue Removed Subcutaneous Subcutaneous -Post Debridement (cm) - Length 3.0 0.8 -Post Debridement (cm) - Width 7.2 0.5 -Post Debridement (cm) - Depth 0.2 0.1 -Total Square (Post) (cm) 21.60 0.40 -Area of Debridement (cm) - Length 0.3 0.8 -Area of Debridement (cm) - Width 0.7 0.5 -Total Square (Area) (cm) 0.21 0.40 -Tunneling No No -Undermining/Tunneling No No -Circular Undermining No No -Wound/Ulcer Outcome Not Healed Not Healed -Ulcer Cleansing Rinsed/ Rinsed/ Irrigated with Irrigated with Saline Saline -Foul Odor after Cleansing No No -Bioengineered Tissue No No -Bleeding Controlled with Pressure Pressure -Offloading Yes Yes -Type of Offloading Surgical Shoe Surgical Shoe -Treatment Response Procedure Procedure Tolerated Well Tolerated Well -Debridement - Subq, 1st 20sq cm Yes No 39-right lateral foot -Time 12:15 12:23 -Correct Patient Yes Yes -Correct Side, Site, Position Yes Yes -Correct Procedure Yes Yes -Procedure Performed Yes Yes -Type of Procedure Debridement Debridement -Clinical Debridement Subcutaneous Subcutaneous -Tissue Removed Subcutaneous Subcutaneous -Post Debridement (cm) - Length 0.5 5.5 -Post Debridement (cm) - Width 0.5 5.2 -Post Debridement (cm) - Depth 0.1 0.1 -Total Square (Post) (cm) 0.25 28.60 -Area of Debridement (cm) - Length 0.5 5.5 -Area of Debridement (cm) - Width 0.5 5.2 -Total Square (Area) (cm) 0.25 28.60 -Tunneling No No -Undermining/Tunneling No No -Circular Undermining No No -Wound/Ulcer Outcome Not Healed Not Healed -Ulcer Cleansing Rinsed/ Rinsed/ Irrigated with Irrigated with Saline Saline -Foul Odor after Cleansing No No -Bioengineered Tissue No No -Bleeding Controlled with Pressure Pressure -Offloading Yes No -Type of Offloading Surgical Shoe -Treatment Response Procedure Procedure Tolerated Well Tolerated Well -Debridement - Subq, 1st 20sq cm No Yes -Debridement, SubQ, ea addt'l 20sq cm 1 or part thereof #35 L Stump -Time 12:24 -Correct Patient No Yes -Correct Side, Site, Position No Yes -Correct Procedure No Yes -Procedure Performed No Yes -Type of Procedure Debridement -Clinical Debridement Subcutaneous -Tissue Removed Subcutaneous -Post Debridement (cm) - Length 1.0 -Post Debridement (cm) - Width 2.8 -Post Debridement (cm) - Depth 0.1 -Total Square (Post) (cm) 2.80 -Area of Debridement (cm) - Length 1.0 -Area of Debridement (cm) - Width 2.8 -Total Square (Area) (cm) 2.80 -Tunneling No -Undermining/Tunneling No -Circular Undermining No -Wound/Ulcer Outcome Not Healed -Ulcer Cleansing Rinsed/ Irrigated with Saline -Foul Odor after Cleansing No -Bioengineered Tissue No -Bleeding Controlled with Pressure -Offloading No -Treatment Response Procedure Tolerated Well -Debridement - Subq, 1st 20sq cm No #36- R HEEL -Correct Patient No -Correct Side, Site, Position No -Correct Procedure No -Procedure Performed No -Post Debridement (cm) - Length 0 -Post Debridement (cm) - Width 0 -Post Debridement (cm) - Depth 0 -Total Square (Post) (cm) 0 -Area of Debridement (cm) - Length 0 -Area of Debridement (cm) - Width 0 -Total Square (Area) (cm) 0 -Wound/Ulcer Outcome Healed- Epithelialized #37-right 2nd toe -Time 12:17 12:24 -Correct Patient Yes Yes -Correct Side, Site, Position Yes Yes -Correct Procedure Yes Yes -Procedure Performed Yes Yes -Type of Procedure Debridement Debridement -Clinical Debridement Subcutaneous Subcutaneous -Tissue Removed Subcutaneous Subcutaneous -Post Debridement (cm) - Length 0.7 0.8 -Post Debridement (cm) - Width 0.7 0.8 -Post Debridement (cm) - Depth 0.1 0.3 -Total Square (Post) (cm) 0.49 0.64 -Area of Debridement (cm) - Length 0.7 0.8 -Area of Debridement (cm) - Width 0.7 0.8 -Total Square (Area) (cm) 0.49 0.64 -Tunneling No No -Undermining/Tunneling No No -Circular Undermining No No -Wound/Ulcer Outcome Not Healed Not Healed -Ulcer Cleansing Rinsed/ Rinsed/ Irrigated with Irrigated with Saline Saline -Foul Odor after Cleansing No No -Bioengineered Tissue No No -Bleeding Controlled with Pressure Pressure -Offloading Yes Yes -Type of Offloading Surgical Shoe Surgical Shoe -Treatment Response Procedure Procedure Tolerated Well Tolerated Well -Debridement - Subq, 1st 20sq cm No No Pain Scale: 0-10 Numeric Is Patient Pain Free? Yes Yes WC - Nurse 3 - General Ulcer D/C NN Start: 11/23/19 11:32 Freq: Status: Active Protocol: Activity Type Activity Date Activity User E-Sign Co-Sign Detail Recorded Client Recorded Date Recorded By Document 11/23/19 12:29 RB [id number] 11/23/19 12:34 RB Document 11/30/19 12:33 JF [id number] 11/30/19 12:35 JF 11/23/19 11/30/19 12:29 12:33 Wound Care Nurse 3 41. L stump lateral -Ulcer Cleansing Rinsed/ Irrigated with Saline -Foul Odor after Cleansing No -Primary Dressing Applied Fibracol Plus 4x4 -Primary Dressing Covered/Secured with Dry Gauze & Roll Gauze, Secured with Tape -Fibracol Plus 4x4 1 #40 RIGHT DORSAL FOOT -Ulcer Cleansing Rinsed/ Rinsed/ Irrigated with Irrigated with Saline Saline -Foul Odor after Cleansing No -Primary Dressing Applied Fibracol Plus Fibracol Plus 4x4 4x4 -Primary Dressing Covered/Secured with Dry Gauze,Dry Dry Gauze & Gauze & Roll Roll Gauze, Gauze,Secured Secured with with Tape Tape -Fibracol Plus 4x4 1 1 39-right lateral foot -Ulcer Cleansing Rinsed/ Rinsed/ Irrigated with Irrigated with Saline Saline -Foul Odor after Cleansing No -Primary Dressing Applied Fibracol Plus 4x4 -Other Dressing fibracol plus -Primary Dressing Covered/Secured with Dry Gauze,Dry Dry Gauze & Gauze & Roll Roll Gauze, Gauze,Secured Secured with with Tape Tape -Fibracol Plus 4x4 0 #35 L Stump -Ulcer Cleansing Rinsed/ Rinsed/ Irrigated with Irrigated with Saline Saline -Foul Odor after Cleansing No -Primary Dressing Applied Fibracol Plus 4x4 -Other Dressing fibracol plus -Primary Dressing Covered/Secured with Dry Gauze,Dry Dry Gauze & Gauze & Roll Roll Gauze, Gauze,Secured Secured with with Tape Tape -Fibracol Plus 4x4 0 #37-right 2nd toe -Ulcer Cleansing Rinsed/ Rinsed/ Irrigated with Irrigated with Saline Saline -Foul Odor after Cleansing No -Primary Dressing Applied Fibracol Plus 4x4 -Other Dressing fibracol plus -Primary Dressing Covered/Secured with Dry Gauze,Dry Dry Gauze & Gauze & Roll Roll Gauze, Gauze,Secured Secured with with Tape Tape -Fibracol Plus 4x4 0 Right -Tubular Bandage Single Layer Single Layer -Size of Tubigrip Used Size F Size F -Size F ($) 1 1 Left -Tubular Bandage Single Layer Single Layer -Size of Tubigrip Used Size F Size F -Size F ($) 1 1 Treatment Response Procedure Tolerated Well Pain Scale: 0-10 Numeric Is Patient Pain Free? Yes Yes Teaching: Wound Center Compression Wraps & Stockings -Person Taught Patient Patient -Teaching Method Discussion, Discussion, Demonstration Demonstration -Response to teaching Verbalize Return understanding demonstration, Verbalize understanding Dressing Your Wound -Person Taught Patient -Teaching Method Discussion, Demonstration -Response to teaching Verbalize understanding WC - Visit Discharge Discharge Condition Stable Stable Ambulatory Status Wheelchair Wheelchair Transportation Private Auto Ambulance Medication Reconcilliation completed & No Yes provided to patient/care provider Clinical Summary of Care Provided Yes Yes Wound debrided: dorsal 2nd toe, plantar lateral foot, dorsal foot Laterality: Right Wound Grade/Stage: grade 1 Type of Debridement: Excisional debridement Anesthesia Used: 5% Lidocaine Gel Depth: in the subcutaneous layer Percentage of wound debrided: 100 Instrument Used: #15 blade Tissue Removed: fibrous, devitalized subcutaneous, biofilm, slough Severity: Fat Layer Exposed Amount of bleeding with debridement: Mild Bleeding Controlled with: Pressure Patient tolerated procedure well - Additional Wound Wound debrided: central and lateral below knee amputation stump site Laterality: Left Wound Grade/Stage: grade 1 (prior surgical) Type of Debridement: Excisional debridement Anesthesia Used: 4% Lidocaine Solution Depth: in the subcutaneous layer Percentage of wound debrided: 100 Instrument Used: #15 blade Tissue Removed: fibrous, devitalized subcutaneous, biofilm, slough Severity: Fat Layer Exposed Amount of bleeding with debridement: Mild Bleeding Controlled with: Pressure Patient tolerated procedure: Patient tolerated procedure well Assessment/Plan Active Problems Lymphedema (Chronic) Type 2 diabetes mellitus with diabetic polyneuropathy (Chronic) Ulcer of left lower extremity with fat layer exposed (Chronic) Ulcer of right foot with fat layer exposed (Chronic) Obesity (Chronic) Assessment: Open surgical wound anterior aspect left BKA stump. Peripheral vascular disease. Diabetes with neuropathy. Right second toe ulcer, jerez grade 1, no infection. Right plantar lateral forefoot ulcer, jerez grade 1, no infection. Right dorsal hindfoot ulcer, jerez grade 1, no infection Plan: I reviewed and discussed his case. For the anterior aspect left BKA stump, will continue Fibracol dressing changes daily. His ulcers to his right foot are noted. All bilateral lower extremity ulcer sites were debrided as noted in the clinical panel. To wash daily with soap and water. To change dressing with Aquacel Ag on the right foot also. To keep pressure off of the ulcer sites and a surgical shoe with heel weightbearing. To ambulate with his potential surgical shoe in place if able to. To continue work with home physical therapy. To continue to optimize healing with improved glycemic index, continued weight reduction, and well-balanced [employer] nutrients. He was reassured no local signs of infection are noted today. Check feet daily monitor for this. To return to clinic in 1 week or call sooner if you have any questions or concerns.
[2019-12-14 10:59] VITALS: BP 151/82; PULSE 82; RESP 16; TEMP 36.3; BMI 47.9
[2019-12-14 12:11] VITALS: BP 141/56; PULSE 71; RESP 18; TEMP 36.3
--- NOTE | 2019-12-14 21:23 | PN.PCM_ITS ---
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: Chronic Code(s): L97.512 - Non-pressure chronic ulcer of other part of right foot with fat layer exposed (2) Lymphedema Status: Chronic Code(s): I89.0 - Lymphedema, not elsewhere classified (3) Type 2 diabetes mellitus with diabetic polyneuropathy Status: Chronic Qualifiers: Code(s): E11.42 - Type 2 diabetes mellitus with diabetic polyneuropathy (4) Obesity Status: Chronic Code(s): E66.9 - Obesity, unspecified (5) Ulcer of left lower extremity with fat layer exposed Status: Chronic Code(s): L97.922 - Non-pressure chronic ulcer of unspecified part of left lower leg with fat layer exposed (6) Cellulitis of right foot Status: Acute Code(s): L03.115 - Cellulitis of right lower limb Type of Wound Date of Service: 12/14/19 Chief Complaint: Open surgical wound anterior aspect left BKA stump. Right second toe ulcer. Right dorsal foot ulcer. Right plantar lateral foot ulcer. 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 He has been managed by his surgeon. He also has multiple right foot ulcers, and has been performing dressing changes as advised. He denies fever, chills, nausea, vomiting. He continues to lose weight and be tter control his glucose levels. He obtained a surgical shoe off line and presents with that today. He was recently admitted to [facility] and was on a course of IV antibiotics for treatment of right foot cellulitis. He did request to be transferred to [place] however his insurance would not cover transfer because this was not an acute emergency. He has since stabilized and was discharged home on cephalexin. He relates he is doing much better. He is seen at home by home health who helps with his dressing changes. Progress of Wound: Left below-knee amputation with ulcers stable. right foot ulcer is noted and stable; improving cellulitis - Physical Exam Vital Signs Temp Pulse Resp BP 97.3 F L 71 18 141/56 H 12/14/19 12:11 12/14/19 12:11 12/14/19 12:11 12/14/19 12:11 General: Alert, Oriented x3, Cooperative, No apparent distress Extremities: No cyanosis, Capillary Refill Less than 3 Seconds, No Calf Tenderness, Edema Skin: Ulcer/ Wound - No purulence, erythema, streaking, odor bilateral lower extremities. His skin is hairless and atrophic. The right foot ulcers are granular with moderate serosanguineous drainage. There is some fibrous central tissue to the plantar lateral forefoot ulcer site. There is no bogginess or fluctuance. Compartments around the ulcer remain soft to palpate. Wound Measurements and Assessment WC - Nurse 1 - General Ulcer Measurement Start: 11/23/19 11:32 Freq: Status: Active Protocol: Activity Type Activity Date Activity User E-Sign Co-Sign Detail Recorded Client Recorded Date Recorded By Document 12/14/19 10:59 [facility] [id number] 12/14/19 11:17 [facility] 12/14/19 10:59 Wound Center Nurse 1 [Ulcer Assessment] 41. L stump lateral -Combined with other wound No -Current Size (cm) - Length 2.8 -Current Size (cm) - Width 1.7 -Current Size (cm) - Depth 0.1 -Total Square Cm 4.76 -Photo Taken No -Epithelialization None Present -Tunneling No -Undermining/Tunneling No -Circular Undermining No -Exudate Amt Medium -Exudate Type Serosanguineous -Wound Margin Distinct, Outline Attached -Granulation Amt Large (67-100%) -Granulation Quality Red -Slough/Fibrin Yes -Necrosis Amt Small (1-33%) -Necrotic Tissue Type Adherent Slough -Texture (Susy-wound Skin Appearance) Assessed, Scarring -Moisture (Susy-wound Skin Appearance Assessed,Dry/ ) Scaly -Color (Susy-wound Skin Appearance) Assessed -Temperature (Susy-wound Skin No Abnormality Appearance) (Pt Warm) -Tenderness on Palpation (Susy-wound No Skin Appearance) -Ulcer Cleansing soapy water -Foul Odor after Cleansing No -Anesthetic Used 4% Lidocaine Solution #40 RIGHT DORSAL FOOT -Combined with other wound No -Current Size (cm) - Length 0.1 -Current Size (cm) - Width 0.1 -Current Size (cm) - Depth 0.1 -Total Square Cm 0.01 -Epithelialization Large 67-100% -Tunneling No -Undermining/Tunneling No -Circular Undermining No -Texture (Susy-wound Skin Appearance) Assessed -Moisture (Susy-wound Skin Appearance Assessed ) -Color (Susy-wound Skin Appearance) Assessed -Temperature (Susy-wound Skin No Abnormality Appearance) (Pt Warm) -Tenderness on Palpation (Susy-wound No Skin Appearance) -Ulcer Cleansing soapy water -Foul Odor after Cleansing No 39-right lateral foot -Combined with other wound No -Current Size (cm) - Length 2.8 -Current Size (cm) - Width 2.1 -Current Size (cm) - Depth 0.1 -Total Square Cm 5.88 -Photo Taken No -Epithelialization None Present -Tunneling No -Undermining/Tunneling No -Circular Undermining No -Exudate Amt Medium -Exudate Type Serosanguineous -Wound Margin Distinct, Outline Attached -Granulation Amt Small (1-33%) -Granulation Quality Red -Slough/Fibrin Yes -Necrosis Amt Large (67-100%) -Necrotic Tissue Type Adherent Slough -Texture (Susy-wound Skin Appearance) Assessed,Callus ,Scarring -Moisture (Susy-wound Skin Appearance Assessed,Dry/ ) Scaly -Color (Susy-wound Skin Appearance) Assessed -Temperature (Susy-wound Skin No Abnormality Appearance) (Pt Warm) -Tenderness on Palpation (Susy-wound No Skin Appearance) -Ulcer Cleansing soapy water -Foul Odor after Cleansing No -Anesthetic Used 4% Lidocaine Solution #35 L Stump -Combined with other wound No -Current Size (cm) - Length 1 -Current Size (cm) - Width 1.7 -Current Size (cm) - Depth 0.2 -Total Square Cm 1.7 -Photo Taken No -Epithelialization None Present -Tunneling No -Undermining/Tunneling No -Circular Undermining No -Exudate Amt Medium -Exudate Type Serosanguineous -Wound Margin Distinct, Outline Attached -Granulation Amt Small (1-33%) -Granulation Quality Red -Slough/Fibrin Yes -Necrosis Amt Medium (34-66%) -Necrotic Tissue Type Adherent Slough -Texture (Susy-wound Skin Appearance) Assessed, Scarring -Moisture (Susy-wound Skin Appearance Assessed ) -Color (Susy-wound Skin Appearance) Assessed -Temperature (Susy-wound Skin No Abnormality Appearance) (Pt Warm) -Tenderness on Palpation (Susy-wound No Skin Appearance) -Ulcer Cleansing soapy water -Foul Odor after Cleansing No -Anesthetic Used 4% Lidocaine Solution #37-right 2nd toe -Combined with other wound No -Current Size (cm) - Length 0.5 -Current Size (cm) - Width 0.3 -Current Size (cm) - Depth 0.1 -Total Square Cm 0.15 -Photo Taken No -Epithelialization None Present -Tunneling No -Undermining/Tunneling No -Circular Undermining No -Exudate Amt None Present -Granulation Amt None Present (0 %) -Slough/Fibrin Yes -Necrosis Amt Large (67-100%) -Necrotic Tissue Type Adherent Slough -Texture (Susy-wound Skin Appearance) Assessed, Scarring -Moisture (Susy-wound Skin Appearance Assessed,Dry/ ) Scaly -Color (Susy-wound Skin Appearance) Assessed -Temperature (Susy-wound Skin No Abnormality Appearance) (Pt Warm) -Tenderness on Palpation (Susy-wound No Skin Appearance) -Ulcer Cleansing soapy water -Foul Odor after Cleansing No -Anesthetic Used 4% Lidocaine Solution [Edema Assessment] -Lower Limb Edema Present Yes -Right Calf (cm) 45 -Right Ankle (cm) 27.6 WC - Nurse 2 - General Ulcer CM Notes Start: 11/23/19 11:32 Freq: Status: Active Protocol: Activity Type Activity Date Activity User E-Sign Co-Sign Detail Recorded Client Recorded Date Recorded By Document 12/14/19 11:50 [facility] [id number] 12/14/19 11:56 [facility] 12/14/19 11:50 Wound Center Nurse 2 [Procedure/Treatment] 41. L stump lateral -Time 11:51 -Correct Patient Yes -Correct Side, Site, Position Yes -Correct Procedure Yes -Procedure Performed Yes -Type of Procedure Debridement -Clinical Debridement Subcutaneous -Tissue Removed Subcutaneous -Post Debridement (cm) - Length 2.8 -Post Debridement (cm) - Width 1.8 -Post Debridement (cm) - Depth 0.1 -Total Square (Post) (cm) 5.04 -Area of Debridement (cm) - Length 2.8 -Area of Debridement (cm) - Width 1.8 -Total Square (Area) (cm) 5.04 -Tunneling No -Undermining/Tunneling No -Circular Undermining No -Wound/Ulcer Outcome Not Healed -Ulcer Cleansing Rinsed/ Irrigated with Saline -Foul Odor after Cleansing No -Bioengineered Tissue No -Bleeding Controlled with Pressure -Offloading No -Treatment Response Procedure Tolerated Well -Debridement - Subq, 1st 20sq cm Yes #40 RIGHT DORSAL FOOT -Time 11:51 -Correct Patient No -Correct Side, Site, Position No -Correct Procedure No -Procedure Performed No -Post Debridement (cm) - Length 0 -Post Debridement (cm) - Width 0 -Post Debridement (cm) - Depth 0 -Total Square (Post) (cm) 0 -Area of Debridement (cm) - Length 0 -Area of Debridement (cm) - Width 0 -Total Square (Area) (cm) 0 -Wound/Ulcer Outcome Healed- Epithelialized 39-right lateral foot -Time 11:52 -Correct Patient Yes -Correct Side, Site, Position Yes -Correct Procedure Yes -Procedure Performed Yes -Type of Procedure Debridement -Clinical Debridement Subcutaneous -Tissue Removed Subcutaneous -Post Debridement (cm) - Length 2.8 -Post Debridement (cm) - Width 2.2 -Post Debridement (cm) - Depth 0.1 -Total Square (Post) (cm) 6.16 -Area of Debridement (cm) - Length 2.8 -Area of Debridement (cm) - Width 2.2 -Total Square (Area) (cm) 6.16 -Tunneling No -Undermining/Tunneling No -Circular Undermining No -Wound/Ulcer Outcome Not Healed -Ulcer Cleansing Rinsed/ Irrigated with Saline -Foul Odor after Cleansing No -Bioengineered Tissue No -Bleeding Controlled with Pressure -Offloading Yes -Type of Offloading Surgical Shoe -Treatment Response Procedure Tolerated Well -Debridement - Subq, 1st 20sq cm Yes #35 L Stump -Time 11:53 -Correct Patient Yes -Correct Side, Site, Position Yes -Correct Procedure Yes -Procedure Performed Yes -Type of Procedure Debridement -Clinical Debridement Subcutaneous -Tissue Removed Subcutaneous -Post Debridement (cm) - Length 1.0 -Post Debridement (cm) - Width 1.8 -Post Debridement (cm) - Depth 0.2 -Total Square (Post) (cm) 1.80 -Area of Debridement (cm) - Length 1.0 -Area of Debridement (cm) - Width 1.8 -Total Square (Area) (cm) 1.80 -Tunneling No -Undermining/Tunneling No -Circular Undermining No -Wound/Ulcer Outcome Not Healed -Ulcer Cleansing Rinsed/ Irrigated with Saline -Foul Odor after Cleansing No -Bioengineered Tissue No -Bleeding Controlled with Pressure -Offloading No -Treatment Response Procedure Tolerated Well -Debridement - Subq, 1st 20sq cm No #37-right 2nd toe -Time 11:53 -Correct Patient Yes -Correct Side, Site, Position Yes -Correct Procedure Yes -Procedure Performed Yes -Type of Procedure Debridement -Clinical Debridement Subcutaneous -Tissue Removed Subcutaneous -Post Debridement (cm) - Length 0.5 -Post Debridement (cm) - Width 0.3 -Post Debridement (cm) - Depth 0.2 -Total Square (Post) (cm) 0.15 -Area of Debridement (cm) - Length 0.5 -Area of Debridement (cm) - Width 0.3 -Total Square (Area) (cm) 0.15 -Tunneling No -Undermining/Tunneling No -Circular Undermining No -Wound/Ulcer Outcome Not Healed -Ulcer Cleansing Rinsed/ Irrigated with Saline -Foul Odor after Cleansing No -Bioengineered Tissue No -Bleeding Controlled with Pressure -Offloading Yes -Type of Offloading Surgical Shoe -Treatment Response Procedure Tolerated Well -Debridement - Subq, 1st 20sq cm No [See Physician Procedure note for Specifics] Pain Scale: 0-10 Numeric [Pain] -Is Patient Pain Free? Yes WC - Nurse 3 - General Ulcer D/C NN Start: 11/23/19 11:32 Freq: Status: Active Protocol: Activity Type Activity Date Activity User E-Sign Co-Sign Detail Recorded Client Recorded Date Recorded By Document 12/14/19 12:11 DL [id number] 12/14/19 12:17 DL 12/14/19 12:11 Wound Care Nurse 3 [Wound Dressing] 41. L stump lateral -Ulcer Cleansing Wound Cleanser -Foul Odor after Cleansing No -Primary Dressing Applied Fibracol Plus 4x4 -Primary Dressing Covered/Secured Dry Gauze & with Roll Gauze, Secured with Tape -Fibracol Plus 4x4 1 39-right lateral foot -Ulcer Cleansing Wound Cleanser -Foul Odor after Cleansing No -Other Dressing fibricol -Primary Dressing Covered/Secured Dry Gauze & with Roll Gauze, Secured with Tape #35 L Stump -Ulcer Cleansing Wound Cleanser -Foul Odor after Cleansing No -Other Dressing fibricol -Primary Dressing Covered/Secured Dry Gauze & with Roll Gauze, Secured with Tape #37-right 2nd toe -Ulcer Cleansing Wound Cleanser -Foul Odor after Cleansing No -Other Dressing fibricol -Primary Dressing Covered/Secured Dry Gauze & with Roll Gauze, Secured with Tape [Compression Applied] Right -Lotion applied to leg before Yes compression wrap -Tubular Bandage Single Layer -Size of Tubigrip Used Size F -Size F ($) 1 -Other marlo Left -Tubular Bandage Single Layer -Size of Tubigrip Used Size F -Size F ($) 1 -Other marlo [Post Procedure Tolerated] -Treatment Response Procedure Tolerated Well Vital Signs [Temperature Protocol: VS] -Temperature (97.8 F-99.1 F) 97.3 F L -Temperature Source Temporal [Pulse] -Pulse Rate (60-100) 71 -Pulse Location Monitor [Respirations] -Respiratory Rate (12-18) 18 -Respiratory rate source Observation [Blood Pressure] -Blood Pressure (90/60-120/80) 141/56 H -Blood Pressure Mean (mm Hg) 84 -Source Monitor Pain Scale: 0-10 Numeric [Pain] -Is Patient Pain Free? Yes WC - Visit Discharge [Visit Discharge Information] -Discharge Condition Stable -Ambulatory Status Wheelchair [Facility Notification] -Facility Type Home Health -Orders Sent Yes Musculoskeletal: No Tenderness to Palpation of Joints or Extremities, Muscle Wasting Neurological: - - Lack of normal epicritic sensation light touch is consistent with neuropathy status Psych/Mental Status: Normal Affect, Appropriate Debridement Note Post-Debridement Measurements/Treatment WC - Nurse 2 - General Ulcer CM Notes Start: 11/23/19 11:32 Freq: Status: Active Protocol: Activity Type Activity Date Activity User E-Sign Co-Sign Detail Recorded Client Recorded Date Recorded By Document 11/23/19 12:13 [id number] 11/23/19 12:20 Document 11/23/19 12:19 [id number] 11/23/19 12:20 Document 11/30/19 12:21 [id number] 11/30/19 12:28 Document 12/07/19 12:08 [id number] 12/07/19 12:19 Document 12/14/19 11:50 [id number] 12/14/19 11:56 11/23/19 11/23/19 11/30/19 12:13 12:19 12:21 Wound Center Nurse 2 41. L stump lateral -Time 12:21 -Correct Patient Yes -Correct Side, Site, Position Yes -Correct Procedure Yes -Procedure Performed Yes -Type of Procedure Debridement -Clinical Debridement Subcutaneous -Tissue Removed Subcutaneous -Post Debridement (cm) - Length 2.1 -Post Debridement (cm) - Width 2.1 -Post Debridement (cm) - Depth 0.1 -Total Square (Post) (cm) 4.41 -Area of Debridement (cm) - Length 2.1 -Area of Debridement (cm) - Width 2.1 -Total Square (Area) (cm) 4.41 -Tunneling No -Undermining/Tunneling No -Circular Undermining No -Wound/Ulcer Outcome Not Healed -Ulcer Cleansing Rinsed/ Irrigated with Saline -Foul Odor after Cleansing No -Bioengineered Tissue No -Bleeding Controlled with Pressure -Offloading No -Treatment Response Procedure Tolerated Well -Debridement - Subq, 1st 20sq cm No -Debridement, SubQ, ea addt'l 20sq cm or part thereof #40 RIGHT DORSAL FOOT -Time 12:13 12:22 -Correct Patient Yes Yes -Correct Side, Site, Position Yes Yes -Correct Procedure Yes Yes -Procedure Performed Yes Yes -Type of Procedure Debridement Debridement -Clinical Debridement Subcutaneous Subcutaneous -Tissue Removed Subcutaneous Subcutaneous -Post Debridement (cm) - Length 3.0 0.8 -Post Debridement (cm) - Width 7.2 0.5 -Post Debridement (cm) - Depth 0.2 0.1 -Total Square (Post) (cm) 21.60 0.40 -Area of Debridement (cm) - Length 0.3 0.8 -Area of Debridement (cm) - Width 0.7 0.5 -Total Square (Area) (cm) 0.21 0.40 -Tunneling No No -Undermining/Tunneling No No -Circular Undermining No No -Wound/Ulcer Outcome Not Healed Not Healed -Ulcer Cleansing Rinsed/ Rinsed/ Irrigated with Irrigated with Saline Saline -Foul Odor after Cleansing No No -Bioengineered Tissue No No -Bleeding Controlled with Pressure Pressure -Offloading Yes Yes -Type of Offloading Surgical Shoe Surgical Shoe -Treatment Response Procedure Procedure Tolerated Well Tolerated Well -Debridement - Subq, 1st 20sq cm Yes No 39-right lateral foot -Time 12:15 12:23 -Correct Patient Yes Yes -Correct Side, Site, Position Yes Yes -Correct Procedure Yes Yes -Procedure Performed Yes Yes -Type of Procedure Debridement Debridement -Clinical Debridement Subcutaneous Subcutaneous -Tissue Removed Subcutaneous Subcutaneous -Post Debridement (cm) - Length 0.5 5.5 -Post Debridement (cm) - Width 0.5 5.2 -Post Debridement (cm) - Depth 0.1 0.1 -Total Square (Post) (cm) 0.25 28.60 -Area of Debridement (cm) - Length 0.5 5.5 -Area of Debridement (cm) - Width 0.5 5.2 -Total Square (Area) (cm) 0.25 28.60 -Tunneling No No -Undermining/Tunneling No No -Circular Undermining No No -Wound/Ulcer Outcome Not Healed Not Healed -Ulcer Cleansing Rinsed/ Rinsed/ Irrigated with Irrigated with Saline Saline -Foul Odor after Cleansing No No -Bioengineered Tissue No No -Bleeding Controlled with Pressure Pressure -Offloading Yes No -Type of Offloading Surgical Shoe -Treatment Response Procedure Procedure Tolerated Well Tolerated Well -Debridement - Subq, 1st 20sq cm No Yes -Debridement, SubQ, ea addt'l 20sq cm 1 or part thereof #35 L Stump -Time 12:24 -Correct Patient No Yes -Correct Side, Site, Position No Yes -Correct Procedure No Yes -Procedure Performed No Yes -Type of Procedure Debridement -Clinical Debridement Subcutaneous -Tissue Removed Subcutaneous -Post Debridement (cm) - Length 1.0 -Post Debridement (cm) - Width 2.8 -Post Debridement (cm) - Depth 0.1 -Total Square (Post) (cm) 2.80 -Area of Debridement (cm) - Length 1.0 -Area of Debridement (cm) - Width 2.8 -Total Square (Area) (cm) 2.80 -Tunneling No -Undermining/Tunneling No -Circular Undermining No -Wound/Ulcer Outcome Not Healed -Ulcer Cleansing Rinsed/ Irrigated with Saline -Foul Odor after Cleansing No -Bioengineered Tissue No -Bleeding Controlled with Pressure -Offloading No -Type of Offloading -Treatment Response Procedure Tolerated Well -Debridement - Subq, 1st 20sq cm No #36- R HEEL -Correct Patient No -Correct Side, Site, Position No -Correct Procedure No -Procedure Performed No -Post Debridement (cm) - Length 0 -Post Debridement (cm) - Width 0 -Post Debridement (cm) - Depth 0 -Total Square (Post) (cm) 0 -Area of Debridement (cm) - Length 0 -Area of Debridement (cm) - Width 0 -Total Square (Area) (cm) 0 -Wound/Ulcer Outcome Healed- Epithelialized #37-right 2nd toe -Time 12:17 12:24 -Correct Patient Yes Yes -Correct Side, Site, Position Yes Yes -Correct Procedure Yes Yes -Procedure Performed Yes Yes -Type of Procedure Debridement Debridement -Clinical Debridement Subcutaneous Subcutaneous -Tissue Removed Subcutaneous Subcutaneous -Post Debridement (cm) - Length 0.7 0.8 -Post Debridement (cm) - Width 0.7 0.8 -Post Debridement (cm) - Depth 0.1 0.3 -Total Square (Post) (cm) 0.49 0.64 -Area of Debridement (cm) - Length 0.7 0.8 -Area of Debridement (cm) - Width 0.7 0.8 -Total Square (Area) (cm) 0.49 0.64 -Tunneling No No -Undermining/Tunneling No No -Circular Undermining No No -Wound/Ulcer Outcome Not Healed Not Healed -Ulcer Cleansing Rinsed/ Rinsed/ Irrigated with Irrigated with Saline Saline -Foul Odor after Cleansing No No -Bioengineered Tissue No No -Bleeding Controlled with Pressure Pressure -Offloading Yes Yes -Type of Offloading Surgical Shoe Surgical Shoe -Treatment Response Procedure Procedure Tolerated Well Tolerated Well -Debridement - Subq, 1st 20sq cm No No Pain Scale: 0-10 Numeric Is Patient Pain Free? Yes Yes 12/07/19 12/14/19 12:08 11:50 Wound Center Nurse 2 41. L stump lateral -Time 12:09 11:51 -Correct Patient Yes Yes -Correct Side, Site, Position Yes Yes -Correct Procedure Yes Yes -Procedure Performed Yes Yes -Type of Procedure Debridement Debridement -Clinical Debridement Subcutaneous Subcutaneous -Tissue Removed Subcutaneous Subcutaneous -Post Debridement (cm) - Length 2.5 2.8 -Post Debridement (cm) - Width 2.0 1.8 -Post Debridement (cm) - Depth 0.1 0.1 -Total Square (Post) (cm) 5.00 5.04 -Area of Debridement (cm) - Length 2.5 2.8 -Area of Debridement (cm) - Width 2.0 1.8 -Total Square (Area) (cm) 5.00 5.04 -Tunneling No No -Undermining/Tunneling No No -Circular Undermining No No -Wound/Ulcer Outcome Not Healed Not Healed -Ulcer Cleansing Rinsed/ Rinsed/ Irrigated with Irrigated with Saline Saline -Foul Odor after Cleansing No No -Bioengineered Tissue No No -Bleeding Controlled with Pressure Pressure -Offloading No No -Treatment Response Procedure Procedure Tolerated Well Tolerated Well -Debridement - Subq, 1st 20sq cm Yes Yes -Debridement, SubQ, ea addt'l 20sq cm 1 or part thereof #40 RIGHT DORSAL FOOT -Time 12:10 11:51 -Correct Patient Yes No -Correct Side, Site, Position Yes No -Correct Procedure Yes No -Procedure Performed Yes No -Type of Procedure Debridement -Clinical Debridement Subcutaneous -Tissue Removed Subcutaneous -Post Debridement (cm) - Length 0.3 0 -Post Debridement (cm) - Width 0.3 0 -Post Debridement (cm) - Depth 0.1 0 -Total Square (Post) (cm) 0.09 0 -Area of Debridement (cm) - Length 0.3 0 -Area of Debridement (cm) - Width 0.3 0 -Total Square (Area) (cm) 0.09 0 -Tunneling No -Undermining/Tunneling No -Circular Undermining No -Wound/Ulcer Outcome Not Healed Healed- Epithelialized -Ulcer Cleansing Rinsed/ Irrigated with Saline -Foul Odor after Cleansing No -Bioengineered Tissue No -Bleeding Controlled with Pressure -Offloading Yes -Type of Offloading Surgical Shoe -Treatment Response Procedure Tolerated Well -Debridement - Subq, 1st 20sq cm No 39-right lateral foot -Time 12:11 11:52 -Correct Patient Yes Yes -Correct Side, Site, Position Yes Yes -Correct Procedure Yes Yes -Procedure Performed Yes Yes -Type of Procedure Debridement Debridement -Clinical Debridement Subcutaneous Subcutaneous -Tissue Removed Subcutaneous Subcutaneous -Post Debridement (cm) - Length 5.3 2.8 -Post Debridement (cm) - Width 3.2 2.2 -Post Debridement (cm) - Depth 0.2 0.1 -Total Square (Post) (cm) 16.96 6.16 -Area of Debridement (cm) - Length 5.3 2.8 -Area of Debridement (cm) - Width 3.0 2.2 -Total Square (Area) (cm) 15.90 6.16 -Tunneling No No -Undermining/Tunneling No No -Circular Undermining No No -Wound/Ulcer Outcome Not Healed Not Healed -Ulcer Cleansing Rinsed/ Rinsed/ Irrigated with Irrigated with Saline Saline -Foul Odor after Cleansing No No -Bioengineered Tissue No No -Bleeding Controlled with Pressure Pressure -Offloading Yes Yes -Type of Offloading Surgical Shoe Surgical Shoe -Treatment Response Procedure Procedure Tolerated Well Tolerated Well -Debridement - Subq, 1st 20sq cm No Yes -Debridement, SubQ, ea addt'l 20sq cm or part thereof #35 L Stump -Time 12:13 11:53 -Correct Patient Yes Yes -Correct Side, Site, Position Yes Yes -Correct Procedure Yes Yes -Procedure Performed Yes Yes -Type of Procedure Debridement Debridement -Clinical Debridement Subcutaneous Subcutaneous -Tissue Removed Subcutaneous Subcutaneous -Post Debridement (cm) - Length 1.8 1.0 -Post Debridement (cm) - Width 3.1 1.8 -Post Debridement (cm) - Depth 0.3 0.2 -Total Square (Post) (cm) 5.58 1.80 -Area of Debridement (cm) - Length 1.8 1.0 -Area of Debridement (cm) - Width 3.1 1.8 -Total Square (Area) (cm) 5.58 1.80 -Tunneling No No -Undermining/Tunneling No No -Circular Undermining No No -Wound/Ulcer Outcome Not Healed Not Healed -Ulcer Cleansing Rinsed/ Rinsed/ Irrigated with Irrigated with Saline Saline -Foul Odor after Cleansing No No -Bioengineered Tissue No No -Bleeding Controlled with Pressure Pressure -Offloading Yes No -Type of Offloading Surgical Shoe -Treatment Response Procedure Procedure Tolerated Well Tolerated Well -Debridement - Subq, 1st 20sq cm No No #36- R HEEL -Correct Patient -Correct Side, Site, Position -Correct Procedure -Procedure Performed -Post Debridement (cm) - Length -Post Debridement (cm) - Width -Post Debridement (cm) - Depth -Total Square (Post) (cm) -Area of Debridement (cm) - Length -Area of Debridement (cm) - Width -Total Square (Area) (cm) -Wound/Ulcer Outcome #37-right 2nd toe -Time 12:13 11:53 -Correct Patient Yes Yes -Correct Side, Site, Position Yes Yes -Correct Procedure Yes Yes -Procedure Performed Yes Yes -Type of Procedure Debridement Debridement -Clinical Debridement Subcutaneous Subcutaneous -Tissue Removed Subcutaneous Subcutaneous -Post Debridement (cm) - Length 1 0.5 -Post Debridement (cm) - Width 0.5 0.3 -Post Debridement (cm) - Depth 0.4 0.2 -Total Square (Post) (cm) 0.5 0.15 -Area of Debridement (cm) - Length 1 0.5 -Area of Debridement (cm) - Width 0.5 0.3 -Total Square (Area) (cm) 0.5 0.15 -Tunneling No No -Undermining/Tunneling No No -Circular Undermining No No -Wound/Ulcer Outcome Not Healed Not Healed -Ulcer Cleansing Rinsed/ Rinsed/ Irrigated with Irrigated with Saline Saline -Foul Odor after Cleansing No No -Bioengineered Tissue No No -Bleeding Controlled with Pressure Pressure -Offloading Yes Yes -Type of Offloading Surgical Shoe Surgical Shoe -Treatment Response Procedure Procedure Tolerated Well Tolerated Well -Debridement - Subq, 1st 20sq cm No No Pain Scale: 0-10 Numeric Is Patient Pain Free? Yes Yes - Nurse 3 - General Ulcer D/C NN Start: 11/23/19 11:32 Freq: Status: Active Protocol: Activity Type Activity Date Activity User E-Sign Co-Sign Detail Recorded Client Recorded Date Recorded By Document 11/23/19 12:29 RB [id number] 11/23/19 12:34 RB Document 11/30/19 12:33 JF [id number] 11/30/19 12:35 Document 12/14/19 12:11 DL [id number] 12/14/19 12:17 DL 11/23/19 11/30/19 12/14/19 12:29 12:33 12:11 Wound Care Nurse 3 41. L stump lateral -Ulcer Cleansing Rinsed/ Wound Cleanser Irrigated with Saline -Foul Odor after Cleansing No No -Primary Dressing Applied Fibracol Plus Fibracol Plus 4x4 4x4 -Primary Dressing Covered/Secured with Dry Gauze & Dry Gauze & Roll Gauze, Roll Gauze, Secured with Secured with Tape Tape -Fibracol Plus 4x4 1 1 #40 RIGHT DORSAL FOOT -Ulcer Cleansing Rinsed/ Rinsed/ Irrigated with Irrigated with Saline Saline -Foul Odor after Cleansing No -Primary Dressing Applied Fibracol Plus Fibracol Plus 4x4 4x4 -Primary Dressing Covered/Secured with Dry Gauze,Dry Dry Gauze & Gauze & Roll Roll Gauze, Gauze,Secured Secured with with Tape Tape -Fibracol Plus 4x4 1 1 39-right lateral foot -Ulcer Cleansing Rinsed/ Rinsed/ Wound Cleanser Irrigated with Irrigated with Saline Saline -Foul Odor after Cleansing No No -Primary Dressing Applied Fibracol Plus 4x4 -Other Dressing fibracol plus fibricol -Primary Dressing Covered/Secured with Dry Gauze,Dry Dry Gauze & Dry Gauze & Gauze & Roll Roll Gauze, Roll Gauze, Gauze,Secured Secured with Secured with with Tape Tape Tape -Fibracol Plus 4x4 0 #35 L Stump -Ulcer Cleansing Rinsed/ Rinsed/ Wound Cleanser Irrigated with Irrigated with Saline Saline -Foul Odor after Cleansing No No -Primary Dressing Applied Fibracol Plus 4x4 -Other Dressing fibracol plus fibricol -Primary Dressing Covered/Secured with Dry Gauze,Dry Dry Gauze & Dry Gauze & Gauze & Roll Roll Gauze, Roll Gauze, Gauze,Secured Secured with Secured with with Tape Tape Tape -Fibracol Plus 4x4 0 #37-right 2nd toe -Ulcer Cleansing Rinsed/ Rinsed/ Wound Cleanser Irrigated with Irrigated with Saline Saline -Foul Odor after Cleansing No No -Primary Dressing Applied Fibracol Plus 4x4 -Other Dressing fibracol plus fibricol -Primary Dressing Covered/Secured with Dry Gauze,Dry Dry Gauze & Dry Gauze & Gauze & Roll Roll Gauze, Roll Gauze, Gauze,Secured Secured with Secured with with Tape Tape Tape -Fibracol Plus 4x4 0 Right -Lotion applied to leg before Yes compression wrap -Tubular Bandage Single Layer Single Layer Single Layer -Size of Tubigrip Used Size F Size F Size F -Size F ($) 1 1 1 -Other marlo Left -Tubular Bandage Single Layer Single Layer Single Layer -Size of Tubigrip Used Size F Size F Size F -Size F ($) 1 1 1 -Other marlo Treatment Response Procedure Procedure Tolerated Well Tolerated Well Pain Scale: 0-10 Numeric Vital Signs Is Patient Pain Free? Yes Yes Yes Temperature (97.8 F-99.1 F) 97.3 F L Temperature Source Temporal Pulse Rate (60-100) 71 Pulse Location Monitor Respiratory Rate (12-18) 18 Respiratory rate source Observation Blood Pressure (90/60-120/80) 141/56 H Blood Pressure Mean (mm Hg) 84 Source Monitor Teaching: Wound Center Compression Wraps & Stockings -Person Taught Patient Patient -Teaching Method Discussion, Discussion, Demonstration Demonstration -Response to teaching Verbalize Return understanding demonstration, Verbalize understanding Dressing Your Wound -Person Taught Patient -Teaching Method Discussion, Demonstration -Response to teaching Verbalize understanding WC - Visit Discharge Discharge Condition Stable Stable Stable Ambulatory Status Wheelchair Wheelchair Wheelchair Transportation Private Auto Ambulance Medication Reconcilliation completed & No Yes provided to patient/care provider Clinical Summary of Care Provided Yes Yes Facility Type Home Health Orders Sent Yes Wound debrided: leg (BKA stump) central and lateral Laterality: Left Wound Grade/Stage: grade 1 (prior remote surgical site) Type of Debridement: Excisional debridement Anesthesia Used: 5% Lidocaine Gel Depth: in the subcutaneous layer Percentage of wound debrided: 100 Instrument Used: #15 blade Tissue Removed: fibrous, devitalized subcutaneous, biofilm, slough Severity: Fat Layer Exposed Amount of bleeding with debridement: Mild Bleeding Controlled with: Pressure Patient tolerated procedure well - Additional Wound Wound debrided: plantar lateral forefoot, dorsal second toe, plantar medial first MT head Laterality: Right Wound Grade/Stage: grade 1 Type of Debridement: Excisional debridement Anesthesia Used: 5% Lidocaine Gel Depth: in the subcutaneous layer Percentage of wound debrided: 100 Instrument Used: #15 blade Tissue Removed: fibrous, devitalized subcutaneous, biofilm, slough Severity: Fat Layer Exposed Amount of bleeding with debridement: Mild Bleeding Controlled with: Pressure Patient tolerated procedure: Patient tolerated procedure well Assessment/Plan Assessment: 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 Peripheral vascular disease. Diabetes with neuropathy. Right second toe ulcer, jerez grade 1, no infection. Right plantar lateral forefoot ulcer, jerez grade 1, no infection. Right dorsal hindfoot ulcer, jerez grade 1, no infection Plan: I reviewed and discussed his case. For the anterior aspect left BKA st ump, will continue Fibracol dressing changes daily. His ulcers to his right foot are noted. All bilateral lower extremity ulcer sites were debrided as noted in the clinical panel. To wash daily with soap and water. To change dressing with Aquacel Ag on the right foot also. To keep pressure off of the ulcer sites and a surgical shoe with heel weightbearing. To ambulate with his potential surgical shoe in place if able to. To continue work with home physical therapy. To continue to optimize healing with improved glycemic index, continued weight reduction, and well-balanced [employer] nutrients. He was reassured no local signs of infection are noted today. Check feet daily monitor for this. His recent hospital admission as noted and I reviewed his medical records that he brought with him today. His white blood cell count was 7.62 during his recent hospital admission before discharge. His hemoglobin A1c was 7.3%. He was discharged home on 500 mg of cephalexin 3 times daily. I did not see his microbiology results and these will be requested. He was advised to complete his course of oral antibiotics and to monitor for systemic illness development or worsening local cellulitis status. He appears stable at this time and I do not recommend hospital admission. To return to clinic in 1 week or call sooner if you have any questions or concerns.
== END 2019-12-14 23:59 ==
LOC: WC 10:45
PROVIDERS: PCP Family Medicine; Visit Provider Surgery
DX: E11.621 Type 2 diabetes mellitus with foot ulcer (principal); E11.42 Type 2 diabetes mellitus with diabetic polyneuropathy; I89.0 Lymphedema, not elsewhere classified; L97.512 Non-pressure chronic ulcer of other part of right foot with fat layer exposed; Z89.512 Acquired absence of left leg below knee; E11.51 Type 2 diabetes mellitus with diabetic peripheral angiopathy without gangrene; E66.9 Obesity, unspecified; T87.89 Other complications of amputation stump; Y83.9 Surgical procedure, unspecified as the cause of abnormal reaction of the patient, or of later complication, without mention of misadventure at the time of the procedure
CPT/HCPCS: 11042; 11045

== ENCOUNTER 2020-01-11 11:00 | Outpatient (RCR) | payer MEDICARE, MEDICAID, SELFPAY ==
[2019-12-15 00:21] VITALS: BP 141/56; PULSE 71; RESP 18; TEMP 36.3
[2019-12-21 10:52] VITALS: BP 165/67; PULSE 54; RESP 22; TEMP 36.6; BMI 47.9
[2019-12-21 12:16] VITALS: BP 159/68; PULSE 55
--- NOTE | 2019-12-21 13:06 | PCM.WC.PN ---
(1) Diabetic foot infection Status: Acute Current Visit: Yes Code(s): E11.628 - Type 2 diabetes mellitus with other skin complications; L08.9 - Local infection of the skin and subcutaneous tissue, unspecified (2) Body mass index (BMI) 50.0-59.9, adult Status: Chronic Current Visit: Yes Code(s): Z68.43 - Body mass index [BMI] 50.0-59.9, adult (3) Chronic ulcer of left foot with fat layer exposed Status: Chronic Current Visit: Yes Code(s): L97.522 - Non-pressure chronic ulcer of other part of left foot with fat layer exposed (4) Debility Status: Chronic Current Visit: Yes Code(s): R53.81 - Other malaise (5) Diabetes mellitus with polyneuropathy Status: Chronic Current Visit: Yes Qualifiers: Code(s): E11.42 - Type 2 diabetes mellitus with diabetic polyneuropathy (6) Diabetic foot ulcer Status: Chronic Current Visit: Yes Code(s): E11.621 - Type 2 diabetes mellitus with foot ulcer; L97.509 - Non-pressure chronic ulcer of other part of unspecified foot with unspecified severity (7) Type 2 diabetes mellitus with diabetic polyneuropathy Status: Chronic Current Visit: Yes Code(s): E11.42 - Type 2 diabetes mellitus with diabetic polyneuropathy (8) Ulcer of left lower extremity with fat layer exposed Status: Chronic Current Visit: Yes Code(s): L97.922 - Non-pressure chronic ulcer of unspecified part of left lower leg with fat layer exposed (9) Ulcer of right lower extremity with fat layer exposed Status: Chronic Current Visit: Yes Code(s): L97.912 - Non-pressure chronic ulcer of unspecified part of right lower leg with fat layer exposed Type of Wound Date of Service: 12/21/19 Chief Complaint: Open surgical wound anterior aspect left BKA stump. Right second toe ulcer. Right dorsal foot ulcer. Right plantar lateral foot ulcer. 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 He has been managed by his surgeon. He also has multiple right foot ulcers, and has been performing dressing changes as advised. He denies fever, chills, nausea, vomiting. He continues to lose weight and better control his glucose levels. He obtained a surgical shoe off line and presents with that today. He was recently admitted to [facility] and was on a course of IV antibiotics for treatment of right foot cellulitis. He did request to be transferred to [facility] however his insurance would not cover transfer because this was not an acute emergency. He has since stabilized and was discharged home on cephalexin. He relates he is doing much better. He is seen at home by home health who helps with his dressing changes. Progress of Wound: Left below-knee amputation with ulcers stable. right foot ulcer is noted and stable - Physical Exam Vital Signs Temp Pulse Resp BP 97.8 F 55 L 22 H 159/68 H 12/21/19 10:52 12/21/19 12:16 12/21/19 10:52 12/21/19 12:16 General: Oriented x3, Cooperative, Well developed HEENT: Atraumatic, PERRLA Oral: Moist Mucosa Neck: Supple, No JVD Lungs: Clear to auscultation, Normal air movement Cardiovascular: Regular rate, Regular Rhythm Abdomen: Bowel Sounds Present, Soft, Non Tender, No Hepato-splenomegaly Extremities: No clubbing, No edema, - - And left foot ulcers right foot ulcers Wound Measurements and Assessment WC - Nurse 1 - General Ulcer Measurement Start: 12/21/19 10:52 Freq: Status: Active Protocol: Activity Type Activity Date Activity User E-Sign Co-Sign Detail Recorded Client Recorded Date Recorded By Document 12/21/19 10:52 DL [id number] 12/21/19 11:03 DL 12/21/19 10:52 Wound Center Nurse 1 [Ulcer Assessment] 41. L stump lateral -Current Size (cm) - Length 2.6 -Current Size (cm) - Width 3 -Current Size (cm) - Depth 0.1 -Total Square Cm 7.8 -Photo Taken No -Exudate Amt Small -Exudate Type Serosanguineous -Wound Margin Distinct, Outline Attached -Granulation Amt Large (67-100%) -Granulation Quality [facility] -Necrosis Amt Small (1-33%) -Necrotic Tissue Type Adherent Slough -Structure Exposed Muscle -Texture (Susy-wound Skin Appearance) Scarring -Moisture (Susy-wound Skin Appearance Dry/Scaly ) -Color (Susy-wound Skin Appearance) Hemosiderin Staining -Temperature (Susy-wound Skin No Abnormality Appearance) (Pt Warm) -Tenderness on Palpation (Susy-wound No Skin Appearance) -Ulcer Cleansing Wound Cleanser -Foul Odor after Cleansing No -Anesthetic Used 4% Lidocaine Solution 39-right lateral foot -Current Size (cm) - Length 2.8 -Current Size (cm) - Width 2.1 -Current Size (cm) - Depth 0.1 -Total Square Cm 5.88 -Photo Taken No -Exudate Amt Small -Exudate Type Serosanguineous -Wound Margin Thickened -Granulation Amt Medium (34-66%) -Granulation Quality Red -Necrosis Amt Medium (34-66%) -Necrotic Tissue Type Adherent Slough -Structure Exposed N/A -Texture (Susy-wound Skin Appearance) Scarring -Moisture (Susy-wound Skin Appearance Dry/Scaly ) -Color (Susy-wound Skin Appearance) Hemosiderin Staining -Temperature (Susy-wound Skin No Abnormality Appearance) (Pt Warm) -Tenderness on Palpation (Susy-wound No Skin Appearance) -Ulcer Cleansing Wound Cleanser -Foul Odor after Cleansing No -Anesthetic Used 4% Lidocaine Solution #35 L Stump -Current Size (cm) - Length 0.8 -Current Size (cm) - Width 1 -Current Size (cm) - Depth 0.1 -Total Square Cm 0.8 -Photo Taken No -Exudate Amt Small -Exudate Type Serosanguineous -Wound Margin Thickened -Granulation Amt Medium (34-66%) -Granulation Quality Red -Necrosis Amt Medium (34-66%) -Necrotic Tissue Type Adherent Slough -Structure Exposed N/A -Texture (Susy-wound Skin Appearance) Scarring -Moisture (Susy-wound Skin Appearance Dry/Scaly ) -Color (Susy-wound Skin Appearance) Hemosiderin Staining -Temperature (Susy-wound Skin No Abnormality Appearance) (Pt Warm) -Tenderness on Palpation (Susy-wound No Skin Appearance) -Ulcer Cleansing Wound Cleanser -Foul Odor after Cleansing No -Anesthetic Used 4% Lidocaine Solution #28- R MEDIAL FOOT -Current Size (cm) - Length 0.4 -Current Size (cm) - Width 0.4 -Current Size (cm) - Depth 0.1 -Total Square Cm 0.16 -Photo Taken No -Exudate Amt Small -Exudate Type Serosanguineous -Wound Margin Thickened -Granulation Amt Medium (34-66%) -Granulation Quality Red -Necrosis Amt Medium (34-66%) -Necrotic Tissue Type Adherent Slough -Structure Exposed N/A -Texture (Susy-wound Skin Appearance) Scarring -Moisture (Susy-wound Skin Appearance Dry/Scaly ) -Color (Susy-wound Skin Appearance) Hemosiderin Staining -Temperature (Susy-wound Skin No Abnormality Appearance) (Pt Warm) -Tenderness on Palpation (Susy-wound No Skin Appearance) -Ulcer Cleansing Wound Cleanser #37-right 2nd toe -Current Size (cm) - Length 0.8 -Current Size (cm) - Width 0.5 -Current Size (cm) - Depth 1 -Total Square Cm 0.40 -Photo Taken No -Exudate Amt Small -Exudate Type Serosanguineous -Wound Margin Thickened -Granulation Amt None Present (0 %) -Necrosis Amt Large (67-100%) -Necrotic Tissue Type Adherent Slough -Structure Exposed N/A -Texture (Susy-wound Skin Appearance) Scarring -Moisture (Susy-wound Skin Appearance Dry/Scaly ) -Color (Susy-wound Skin Appearance) Hemosiderin Staining -Temperature (Susy-wound Skin No Abnormality Appearance) (Pt Warm) -Tenderness on Palpation (Susy-wound No Skin Appearance) -Ulcer Cleansing Wound Cleanser -Foul Odor after Cleansing No -Anesthetic Used 4% Lidocaine Solution [Edema Assessment] -Right Calf (cm) 42 -Right Ankle (cm) 28 WC - Nurse 2 - General Ulcer CM Notes Start: 12/21/19 10:52 Freq: Status: Active Protocol: Activity Type Activity Date Activity User E-Sign Co-Sign Detail Recorded Client Recorded Date Recorded By Document 12/21/19 11:43 MW [id number] 12/21/19 11:53 MW 12/21/19 11:43 Wound Center Nurse 2 [Procedure/Treatment] 41. L stump lateral -Time 11:45 -Correct Patient Yes -Correct Side, Site, Position Yes -Correct Procedure Yes -Procedure Performed Yes -Type of Procedure Debridement -Clinical Debridement Subcutaneous -Tissue Removed Subcutaneous -Post Debridement (cm) - Length 0.8 -Post Debridement (cm) - Width 2.0 -Post Debridement (cm) - Depth 0.1 -Total Square (Post) (cm) 1.60 -Area of Debridement (cm) - Length 0.8 -Area of Debridement (cm) - Width 2.0 -Total Square (Area) (cm) 1.60 -Tunneling No -Undermining/Tunneling No -Circular Undermining No -Wound/Ulcer Outcome Not Healed -Ulcer Cleansing Rinsed/ Irrigated with Saline -Foul Odor after Cleansing No -Bioengineered Tissue No -Bleeding Controlled with Pressure -Offloading No -Treatment Response Procedure Tolerated Well -Debridement - Subq, 1st 20sq cm Yes 39-right lateral foot -Time 11:46 -Correct Patient Yes -Correct Side, Site, Position Yes -Correct Procedure Yes -Type of Procedure Debridement -Clinical Debridement Subcutaneous -Tissue Removed Subcutaneous -Post Debridement (cm) - Length 3.5 -Post Debridement (cm) - Width 2.5 -Post Debridement (cm) - Depth 0.1 -Total Square (Post) (cm) 8.75 -Area of Debridement (cm) - Length 3.5 -Area of Debridement (cm) - Width 2.5 -Total Square (Area) (cm) 8.75 -Tunneling No -Undermining/Tunneling No -Circular Undermining No -Wound/Ulcer Outcome Not Healed -Ulcer Cleansing Rinsed/ Irrigated with Saline -Foul Odor after Cleansing No -Bioengineered Tissue No -Bleeding Controlled with Pressure -Offloading No -Treatment Response Procedure Tolerated Well -Debridement - Subq, 1st 20sq cm No #35 L Stump -Time 11:47 -Correct Patient Yes -Correct Side, Site, Position Yes -Correct Procedure Yes -Procedure Performed No -Post Debridement (cm) - Length 0 -Post Debridement (cm) - Width 0 -Post Debridement (cm) - Depth 0 -Total Square (Post) (cm) 0 -Tunneling No -Undermining/Tunneling No -Circular Undermining No -Wound/Ulcer Outcome Healed- Epithelialized -Ulcer Cleansing Not Cleansed -Bleeding Controlled with Pressure -Offloading No #28- R MEDIAL FOOT -Time 11:47 -Correct Patient Yes -Correct Side, Site, Position Yes -Correct Procedure Yes -Procedure Performed Yes -Type of Procedure Debridement -Clinical Debridement Subcutaneous -Tissue Removed Subcutaneous -Post Debridement (cm) - Length 3.0 -Post Debridement (cm) - Width 1.2 -Post Debridement (cm) - Depth 0.1 -Total Square (Post) (cm) 3.60 -Area of Debridement (cm) - Length 3.0 -Area of Debridement (cm) - Width 1.2 -Total Square (Area) (cm) 3.60 -Tunneling No -Undermining/Tunneling No -Circular Undermining No -Wound/Ulcer Outcome Not Healed -Ulcer Cleansing Rinsed/ Irrigated with Saline -Foul Odor after Cleansing No -Bioengineered Tissue No -Bleeding Controlled with Pressure -Offloading No -Treatment Response Procedure Tolerated Well -Debridement - Subq, 1st 20sq cm No #37-right 2nd toe -Time 11:47 -Correct Patient Yes -Correct Side, Site, Position Yes -Correct Procedure Yes -Procedure Performed Yes -Type of Procedure Debridement -Clinical Debridement Subcutaneous -Tissue Removed Subcutaneous -Post Debridement (cm) - Length 2.5 -Post Debridement (cm) - Width 1.0 -Post Debridement (cm) - Depth 0.4 -Total Square (Post) (cm) 2.50 -Area of Debridement (cm) - Length 2.5 -Area of Debridement (cm) - Width 1.0 -Total Square (Area) (cm) 2.50 -Tunneling No -Undermining/Tunneling No -Circular Undermining No -Wound/Ulcer Outcome Not Healed -Ulcer Cleansing Rinsed/ Irrigated with Saline -Foul Odor after Cleansing No -Bioengineered Tissue No -Bleeding Controlled with Pressure -Offloading No -Debridement - Subq, 1st 20sq cm No [See Physician Procedure note for Specifics] Pain Scale: 0-10 Numeric [Pain] -Is Patient Pain Free? Yes WC - Nurse 3 - General Ulcer D/C NN Start: 12/21/19 10:52 Freq: Status: Active Protocol: Activity Type Activity Date Activity User E-Sign Co-Sign Detail Recorded Client Recorded Date Recorded By Document 12/21/19 12:16 DL [id number] 12/21/19 12:22 DL 12/21/19 12:16 Wound Care Nurse 3 [Wound Dressing] 41. L stump lateral -Ulcer Cleansing Wound Cleanser -Foul Odor after Cleansing No -Primary Dressing Applied Fibracol Plus 4x4 -Primary Dressing Covered/Secured Dry Gauze & with Roll Gauze, Secured with Tape -Fibracol Plus 4x4 1 39-right lateral foot -Ulcer Cleansing Wound Cleanser -Foul Odor after Cleansing No -Other Dressing fibricol -Primary Dressing Covered/Secured Dry Gauze & with Roll Gauze, Secured with Tape #28- R MEDIAL FOOT -Ulcer Cleansing Wound Cleanser -Foul Odor after Cleansing No -Other Dressing fibricol -Primary Dressing Covered/Secured Dry Gauze,Dry with Gauze & Roll Gauze,Secured with Tape #37-right 2nd toe -Ulcer Cleansing Wound Cleanser -Foul Odor after Cleansing No -Other Dressing fibricol -Primary Dressing Covered/Secured Dry Gauze & with Roll Gauze, Other -Other Covering gauze -Fibracol Plus 4x4 1 [Post Procedure Tolerated] -Treatment Response Procedure Tolerated Well Vital Signs [Pulse] -Pulse Rate (60-100 beats/min) 55 L -Pulse Location Monitor [Blood Pressure] -Blood Pressure (90/60-120/80 mm Hg) 159/68 H -Blood Pressure Mean (mm Hg) 98 -Source Monitor Pain Scale: 0-10 Numeric [Pain] -Is Patient Pain Free? Yes WC - Visit Discharge [Visit Discharge Information] -Discharge Condition Stable -Ambulatory Status Wheelchair Musculoskeletal: No Tenderness to Palpation of Joints or Extremities Lymphatic: No Cervical, Supraclavicular, or Inguinal Adenopathy Neurological: Cranial nerves II-XII grossly intact, Neuro grossly intact Psych/Mental Status: Normal Affect, Appropriate Debridement Note Post-Debridement Measurements/Treatment WC - Nurse 2 - General Ulcer CM Notes Start: 12/21/19 10:52 Freq: Status: Active Protocol: Activity Type Activity Date Activity User E-Sign Co-Sign Detail Recorded Client Recorded Date Recorded By Document 12/21/19 11:43 MW [id number] 12/21/19 11:53 MW 12/21/19 11:43 Wound Center Nurse 2 41. L stump lateral -Time 11:45 -Correct Patient Yes -Correct Side, Site, Position Yes -Correct Procedure Yes -Procedure Performed Yes -Type of Procedure Debridement -Clinical Debridement Subcutaneous -Tissue Removed Subcutaneous -Post Debridement (cm) - Length 0.8 -Post Debridement (cm) - Width 2.0 -Post Debridement (cm) - Depth 0.1 -Total Square (Post) (cm) 1.60 -Area of Debridement (cm) - Length 0.8 -Area of Debridement (cm) - Width 2.0 -Total Square (Area) (cm) 1.60 -Tunneling No -Undermining/Tunneling No -Circular Undermining No -Wound/Ulcer Outcome Not Healed -Ulcer Cleansing Rinsed/ Irrigated with Saline -Foul Odor after Cleansing No -Bioengineered Tissue No -Bleeding Controlled with Pressure -Offloading No -Treatment Response Procedure Tolerated Well -Debridement - Subq, 1st 20sq cm Yes 39-right lateral foot -Time 11:46 -Correct Patient Yes -Correct Side, Site, Position Yes -Correct Procedure Yes -Type of Procedure Debridement -Clinical Debridement Subcutaneous -Tissue Removed Subcutaneous -Post Debridement (cm) - Length 3.5 -Post Debridement (cm) - Width 2.5 -Post Debridement (cm) - Depth 0.1 -Total Square (Post) (cm) 8.75 -Area of Debridement (cm) - Length 3.5 -Area of Debridement (cm) - Width 2.5 -Total Square (Area) (cm) 8.75 -Tunneling No -Undermining/Tunneling No -Circular Undermining No -Wound/Ulcer Outcome Not Healed -Ulcer Cleansing Rinsed/ Irrigated with Saline -Foul Odor after Cleansing No -Bioengineered Tissue No -Bleeding Controlled with Pressure -Offloading No -Treatment Response Procedure Tolerated Well -Debridement - Subq, 1st 20sq cm No #35 L Stump -Time 11:47 -Correct Patient Yes -Correct Side, Site, Position Yes -Correct Procedure Yes -Procedure Performed No -Post Debridement (cm) - Length 0 -Post Debridement (cm) - Width 0 -Post Debridement (cm) - Depth 0 -Total Square (Post) (cm) 0 -Tunneling No -Undermining/Tunneling No -Circular Undermining No -Wound/Ulcer Outcome Healed- Epithelialized -Ulcer Cleansing Not Cleansed -Bleeding Controlled with Pressure -Offloading No #28- R MEDIAL FOOT -Time 11:47 -Correct Patient Yes -Correct Side, Site, Position Yes -Correct Procedure Yes -Procedure Performed Yes -Type of Procedure Debridement -Clinical Debridement Subcutaneous -Tissue Removed Subcutaneous -Post Debridement (cm) - Length 3.0 -Post Debridement (cm) - Width 1.2 -Post Debridement (cm) - Depth 0.1 -Total Square (Post) (cm) 3.60 -Area of Debridement (cm) - Length 3.0 -Area of Debridement (cm) - Width 1.2 -Total Square (Area) (cm) 3.60 -Tunneling No -Undermining/Tunneling No -Circular Undermining No -Wound/Ulcer Outcome Not Healed -Ulcer Cleansing Rinsed/ Irrigated with Saline -Foul Odor after Cleansing No -Bioengineered Tissue No -Bleeding Controlled with Pressure -Offloading No -Treatment Response Procedure Tolerated Well -Debridement - Subq, 1st 20sq cm No #37-right 2nd toe -Time 11:47 -Correct Patient Yes -Correct Side, Site, Position Yes -Correct Procedure Yes -Procedure Performed Yes -Type of Procedure Debridement -Clinical Debridement Subcutaneous -Tissue Removed Subcutaneous -Post Debridement (cm) - Length 2.5 -Post Debridement (cm) - Width 1.0 -Post Debridement (cm) - Depth 0.4 -Total Square (Post) (cm) 2.50 -Area of Debridement (cm) - Length 2.5 -Area of Debridement (cm) - Width 1.0 -Total Square (Area) (cm) 2.50 -Tunneling No -Undermining/Tunneling No -Circular Undermining No -Wound/Ulcer Outcome Not Healed -Ulcer Cleansing Rinsed/ Irrigated with Saline -Foul Odor after Cleansing No -Bioengineered Tissue No -Bleeding Controlled with Pressure -Offloading No -Debridement - Subq, 1st 20sq cm No Pain Scale: 0-10 Numeric Is Patient Pain Free? Yes WC - Nurse 3 - General Ulcer D/C NN Start: 12/21/19 10:52 Freq: Status: Active Protocol: Activity Type Activity Date Activity User E-Sign Co-Sign Detail Recorded Client Recorded Date Recorded By Document 12/21/19 12:16 DL [id number] 12/21/19 12:22 DL 12/21/19 12:16 Wound Care Nurse 3 41. L stump lateral -Ulcer Cleansing Wound Cleanser -Foul Odor after Cleansing No -Primary Dressing Applied Fibracol Plus 4x4 -Primary Dressing Covered/Secured with Dry Gauze & Roll Gauze, Secured with Tape -Fibracol Plus 4x4 1 39-right lateral foot -Ulcer Cleansing Wound Cleanser -Foul Odor after Cleansing No -Other Dressing fibricol -Primary Dressing Covered/Secured with Dry Gauze & Roll Gauze, Secured with Tape #28- R MEDIAL FOOT -Ulcer Cleansing Wound Cleanser -Foul Odor after Cleansing No -Other Dressing fibricol -Primary Dressing Covered/Secured with Dry Gauze,Dry Gauze & Roll Gauze,Secured with Tape #37-right 2nd toe -Ulcer Cleansing Wound Cleanser -Foul Odor after Cleansing No -Other Dressing fibricol -Primary Dressing Covered/Secured with Dry Gauze & Roll Gauze, Other -Other Covering gauze -Fibracol Plus 4x4 1 Treatment Response Procedure Tolerated Well Vital Signs Pulse Rate (60-100 beats/min) 55 L Pulse Location Monitor Blood Pressure (90/60-120/80 mm Hg) 159/68 H Blood Pressure Mean (mm Hg) 98 Source Monitor Pain Scale: 0-10 Numeric Is Patient Pain Free? Yes WC - Visit Discharge Discharge Condition Stable Ambulatory Status Wheelchair Wound debrided: Right medial foot Type of Debridement: Excisional debridement Anesthesia Used: 5% Lidocaine Gel Depth: Down to and including healthy tissue, in the subcutaneous layer Percentage of wound debrided: 100 Instrument Used: 7mm curette Tissue Removed: Fibrin devitalized tissue and slough Severity: Limited To Skin Breakdown Amount of bleeding with debridement: Mild Bleeding Controlled with: Compression and gauze Patient tolerated procedure well - Additional Wound Wound debrided: Right second toe cluster Type of Debridement: Excisional debridement Anesthesia Used: 5% Lidocaine Gel Depth: Down to and including healthy tissue, in the subcutaneous layer Percentage of wound debrided: 100 Instrument Used: 7mm curette Tissue Removed: Left fibrin devitalized tissue Severity: Fat Layer Exposed Amount of bleeding with debridement: Mild Bleeding Controlled with: Compression and gauze Patient tolerated procedure: Patient tolerated procedure well - Additional Wound Wound debrided: Right lateral foot Type of Debridement: Excisional debridement Anesthesia Used: 5% Lidocaine Gel Depth: Down to and including healthy tissue, in the subcutaneous layer Percentage of wound debrided: 100 Instrument Used: 7mm curette Tissue Removed: Slough fibrin Severity: Limited To Skin Breakdown Amount of bleeding with debridement: Mild Bleeding Controlled with: Compression and gauze Patient tolerated procedure: Patient tolerated procedure well - Additional Wound Wound debrided: Left stump Type of Debridement: Excisional debridement Anesthesia Used: 5% Lidocaine Gel Depth: Down to and including healthy tissue Percentage of wound debrided: 100 Instrument Used: 7mm curette Tissue Removed: Fibrin devitalized tissue Severity: Limited To Skin Breakdown Amount of bleeding with debridement: Mild Bleeding Controlled with: Compression and gauze Patient tolerated procedure: Patient tolerated procedure well Assessment/Plan Active Problems Debility (Chronic) Body mass index (BMI) 50.0-59.9, adult (Chronic) Diabetic foot infection (Acute) Ulcer of left lower extremity with fat layer exposed (Chronic) Ulcer of right lower extremity with fat layer exposed (Chronic) Chronic ulcer of left foot with fat layer exposed (Chronic) Type 2 diabetes mellitus with diabetic polyneuropathy (Chronic) Diabetes mellitus with polyneuropathy (Chronic) Diabetic foot ulcer (Chronic) Assessment: Open surgical wound anterior aspect left BKA stump. Peripheral vascular disease. Diabetes with neuropathy. Right second toe ulcer, jerez grade 1, no infection. Right plantar lateral forefoot ulcer, jerez grade 1, no infection. Right dorsal hindfoot ulcer, jerez grade 1, no infection Plan: I reviewed and discussed his case. For the anterior aspect left BKA stump, will continue Fibracol dressing changes daily. His ulcers to his right foot are noted. All bilateral lower extremity ulcer sites were debrided as noted in the clinical panel. To wash daily with soap and water. To change dressing with Aquacel Ag on the right foot also. To keep pressure off of the ulcer sites and a surgical shoe with heel weightbearing. To ambulate with his potential surgical shoe in place if able to. To continue work with home physical therapy. To continue to optimize healing with improved glycemic index, continued weight reduction, and well-balanced [employer] nutrients. He was reassured no local signs of infection are noted today. Check feet daily monitor for this. His recent hospital admission as noted and I reviewed his medical records that he brought with him today. His white blood cell count was 7.62 during his recent hospital admission before discharge. His hemoglobin A1c was 7.3%. He was discharged home on 500 mg of cephalexin 3 times daily. I did not see his microbiology results and these will be requested. He was advised to complete his course of oral antibiotics and to monitor for systemic illness development or worsening local cellulitis status. He appears stable at this time and I do not recommend hospital admission. To return to clinic in 1 week or call sooner if you have any questions or concerns.
[2019-12-28 12:15] VITALS: BP 160/57; PULSE 54; RESP 16; TEMP 36.4; BMI 47.9
[2019-12-28 13:48] VITALS: BP 153/90; PULSE 59; RESP 16
--- NOTE | 2019-12-28 14:41 | PN.PCM_ITS ---
(1) Cellulitis of right foot Status: Resolved Code(s): L03.115 - Cellulitis of right lower limb (2) Diabetes mellitus with polyneuropathy Status: Chronic Qualifiers: Code(s): E11.42 - Type 2 diabetes mellitus with diabetic polyneuropathy (3) Nonhealing amputation stump Status: Chronic Code(s): T87.89 - Other complications of amputation stump (4) Ulcer of left lower extremity with fat layer exposed Status: Chronic Code(s): L97.922 - Non-pressure chronic ulcer of unspecified part of left lower leg with fat layer exposed (5) Ulcer of right foot with fat layer exposed Status: Chronic Code(s): L97.512 - Non-pressure chronic ulcer of other part of right foot with fat layer exposed (6) Venous insufficiency Status: Chronic Code(s): I87.2 - Venous insufficiency (chronic) (peripheral) (7) Walking difficulty due to ankle and foot Status: Chronic Code(s): R26.2 - Difficulty in walking, not elsewhere cla ssified Type of Wound Date of Service: 12/28/19 Chief Complaint: Open surgical wound anterior aspect left BKA stump. Right second toe ulcer. Right plantar lateral foot ulcer. 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 He has been managed by his surgeon. He also has multiple right foot ulcers, and has been performing dressing changes as advised. He denies fever, chills, nausea, vomiting. He continues to lose weight and better control his glucose levels. He obtained a surgical shoe off line and presents with that today again because [facility] He is feeling much better and has completed his antibiotic course as recommended by the infectious disease physician at [facility]. Progress of Wound: Left below-knee amputation with ulcers stable. right foot ulcer is noted and stable - Physical Exam Vital Signs Temp Pulse Resp BP 97.5 F L 54 L 16 160/57 H 12/28/19 12:15 12/28/19 12:15 12/28/19 12:15 12/28/19 12:15 General: Alert, Oriented x3, Cooperative, No apparent distress HEENT: Atraumatic Extremities: No cyanosis, Capillary Refill Less than 3 Seconds, No Calf Tenderness, Diminished Peripheral Pulses, Edema, - - Hallux amputation right, below-knee amputation left Skin: Ulcer/ Wound - No purulence, erythema, streaking, odor, infection, exposed bone or joint, or necrosis bilateral. Skin is hairless and atrophic bilateral Wound Measurements and Assessment WC - Nurse 1 - General Ulcer Measurement Start: 12/21/19 10:52 Freq: Status: Active Protocol: Activity Type Activity Date Activity User E-Sign Co-Sign Detail Recorded Client Recorded Date Recorded By Document 12/28/19 12:15 [facility] [id number] 12/28/19 12:32 [facility] 12/28/19 12:15 Wound Center Nurse 1 [Ulcer Assessment] 41. L stump lateral -Combined with other wound No -Current Size (cm) - Length 0.1 -Current Size (cm) - Width 0.1 -Current Size (cm) - Depth 0.1 -Total Square Cm 0.01 -Epithelialization Large 67-100% -Tunneling No -Undermining/Tunneling No -Circular Undermining No -Texture (Susy-wound Skin Appearance) Assessed, Scarring -Moisture (Susy-wound Skin Appearance Assessed,Dry/ ) Scaly -Color (Susy-wound Skin Appearance) Assessed -Temperature (Susy-wound Skin No Abnormality Appearance) (Pt Warm) -Tenderness on Palpation (Susy-wound No Skin Appearance) -Ulcer Cleansing soapy water -Foul Odor after Cleansing No 39-right lateral foot -Combined with other wound No -Current Size (cm) - Length 2.4 -Current Size (cm) - Width 2.3 -Current Size (cm) - Depth 0.1 -Total Square Cm 5.52 -Photo Taken No -Epithelialization None Present -Tunneling No -Undermining/Tunneling No -Circular Undermining No -Exudate Amt Large -Exudate Type Serosanguineous -Wound Margin Distinct, Outline Attached -Granulation Amt Small (1-33%) -Granulation Quality Red -Slough/Fibrin Yes -Necrosis Amt Large (67-100%) -Necrotic Tissue Type Adherent Slough -Texture (Susy-wound Skin Appearance) Assessed, Localized Edema -Moisture (Susy-wound Skin Appearance Assessed, ) Maceration,Dry/ Scaly -Color (Susy-wound Skin Appearance) Assessed, Erythema,Palor -Temperature (Susy-wound Skin No Abnormality Appearance) (Pt Warm) -Tenderness on Palpation (Susy-wound No Skin Appearance) -Ulcer Cleansing soapy water -Foul Odor after Cleansing No -Anesthetic Used 4% Lidocaine Solution #35 L Stump -Combined with other wound No -Current Size (cm) - Length 0.7 -Current Size (cm) - Width 2 -Current Size (cm) - Depth 0.2 -Total Square Cm 1.4 -Photo Taken No -Epithelialization Small 1-33% -Tunneling No -Undermining/Tunneling No -Circular Undermining No -Exudate Amt Medium -Exudate Type Serosanguineous -Wound Margin Distinct, Outline Attached -Granulation Amt Small (1-33%) -Granulation Quality Red -Slough/Fibrin Yes -Necrosis Amt Large (67-100%) -Necrotic Tissue Type Adherent Slough -Texture (Susy-wound Skin Appearance) Assessed, Scarring -Moisture (Susy-wound Skin Appearance Assessed, ) Maceration,Dry/ Scaly -Color (Susy-wound Skin Appearance) Assessed,Palor -Temperature (Susy-wound Skin No Abnormality Appearance) (Pt Warm) -Tenderness on Palpation (Susy-wound No Skin Appearance) -Ulcer Cleansing soapy water -Foul Odor after Cleansing No -Anesthetic Used 4% Lidocaine Solution #28- R MEDIAL FOOT -Combined with other wound No -Current Size (cm) - Length 1 -Current Size (cm) - Width 2.5 -Current Size (cm) - Depth 0.2 -Total Square Cm 2.5 -Photo Taken No -Epithelialization None Present -Tunneling No -Undermining/Tunneling No -Circular Undermining No -Exudate Amt Small -Exudate Type Serosanguineous -Wound Margin Distinct, Outline Attached -Granulation Amt Small (1-33%) -Granulation Quality Red -Slough/Fibrin Yes -Necrosis Amt Large (67-100%) -Necrotic Tissue Type Adherent Slough -Texture (Susy-wound Skin Appearance) Assessed, Scarring -Moisture (Susy-wound Skin Appearance Assessed, ) Maceration -Color (Susy-wound Skin Appearance) Assessed,Palor -Temperature (Susy-wound Skin No Abnormality Appearance) (Pt Warm) -Tenderness on Palpation (Susy-wound No Skin Appearance) -Ulcer Cleansing soapy water -Foul Odor after Cleansing No -Anesthetic Used 4% Lidocaine Solution #37-right 2nd toe -Combined with other wound No -Current Size (cm) - Length 2.5 -Current Size (cm) - Width 2.1 -Current Size (cm) - Depth 0.3 -Total Square Cm 5.25 -Photo Taken No -Epithelialization None Present -Tunneling No -Undermining/Tunneling No -Circular Undermining No -Exudate Amt Medium -Exudate Type Serosanguineous -Wound Margin Distinct, Outline Attached -Granulation Amt Small (1-33%) -Granulation Quality Red -Slough/Fibrin Yes -Necrosis Amt Large (67-100%) -Necrotic Tissue Type Adherent Slough -Texture (Susy-wound Skin Appearance) Assessed, Scarring -Moisture (Susy-wound Skin Appearance Assessed, ) Maceration,Dry/ Scaly -Color (Susy-wound Skin Appearance) Assessed, Erythema,Palor -Temperature (Susy-wound Skin No Abnormality Appearance) (Pt Warm) -Tenderness on Palpation (Susy-wound No Skin Appearance) -Ulcer Cleansing soapy water -Foul Odor after Cleansing No -Anesthetic Used 4% Lidocaine Solution WC - Nurse 3 - General Ulcer D/C NN Start: 12/21/19 10:52 Freq: Status: Active Protocol: Activity Type Activity Date Activity User E-Sign Co-Sign Detail Recorded Client Recorded Date Recorded By Document 12/28/19 13:48 NORRIS [id number] 12/28/19 13:50 NORRIS 12/28/19 13:48 Wound Care Nurse 3 [Wound Dressing] 41. L stump lateral -Ulcer Cleansing Rinsed/ Irrigated with Saline -Primary Dressing Applied Fibracol Plus 4x4 -Primary Dressing Covered/Secured Dry Gauze with -Fibracol Plus 4x4 1 39-right lateral foot -Ulcer Cleansing Rinsed/ Irrigated with Saline -Foul Odor after Cleansing No -Primary Dressing Applied Fibracol Plus 4x4 -Primary Dressing Covered/Secured Dry Gauze & with Roll Gauze, Secured with Tape -Fibracol Plus 4x4 0 #35 L Stump -Ulcer Cleansing Rinsed/ Irrigated with Saline -Foul Odor after Cleansing No -Primary Dressing Applied Fibracol Plus 4x4 -Primary Dressing Covered/Secured Dry Gauze & with Roll Gauze, Secured with Tape -Fibracol Plus 4x4 0 #28- R MEDIAL FOOT -Ulcer Cleansing Rinsed/ Irrigated with Saline -Foul Odor after Cleansing No -Primary Dressing Applied Fibracol Plus 4x4 -Primary Dressing Covered/Secured Dry Gauze & with Roll Gauze, Secured with Tape -Fibracol Plus 4x4 0 #37-right 2nd toe -Ulcer Cleansing Rinsed/ Irrigated with Saline -Primary Dressing Covered/Secured Dry Gauze & with Roll Gauze -Fibracol Plus 4x4 0 [Compression Applied] Right -Other farrow wrap Pain Scale: 0-10 Numeric [Pain] -Is Patient Pain Free? Yes WC - Visit Discharge [Visit Discharge Information] -Discharge Condition Stable -Ambulatory Status Wheelchair -Transportation Private Auto -Medication Reconcilliation completed Yes & provided to patient/care provider -Clinical Summary of Care Provided Yes Musculoskeletal: No Tenderness to Palpation of Joints or Extremities, Muscle Wasting Neurological: - - Lack of normal epicritic sensation light touch is consistent with neuropathy status Psych/Mental Status: Normal Affect, Appropriate Debridement Note Post-Debridement Measurements/Treatment WC - Nurse 2 - General Ulcer CM Notes Start: 12/21/19 10:52 Freq: Status: Active Protocol: Activity Type Activity Date Activity User E-Sign Co-Sign Detail Recorded Client Recorded Date Recorded By Document 12/21/19 11:43 MW [id number] 12/21/19 11:53 MW 12/21/19 11:43 Wound Center Nurse 2 41. L stump lateral -Time 11:45 -Correct Patient Yes -Correct Side, Site, Position Yes -Correct Procedure Yes -Procedure Performed Yes -Type of Procedure Debridement -Clinical Debridement Subcutaneous -Tissue Removed Subcutaneous -Post Debridement (cm) - Length 0.8 -Post Debridement (cm) - Width 2.0 -Post Debridement (cm) - Depth 0.1 -Total Square (Post) (cm) 1.60 -Area of Debridement (cm) - Length 0.8 -Area of Debridement (cm) - Width 2.0 -Total Square (Area) (cm) 1.60 -Tunneling No -Undermining/Tunneling No -Circular Undermining No -Wound/Ulcer Outcome Not Healed -Ulcer Cleansing Rinsed/ Irrigated with Saline -Foul Odor after Cleansing No -Bioengineered Tissue No -Bleeding Controlled with Pressure -Offloading No -Treatment Response Procedure Tolerated Well -Debridement - Subq, 1st 20sq cm Yes 39-right lateral foot -Time 11:46 -Correct Patient Yes -Correct Side, Site, Position Yes -Correct Procedure Yes -Type of Procedure Debridement -Clinical Debridement Subcutaneous -Tissue Removed Subcutaneous -Post Debridement (cm) - Length 3.5 -Post Debridement (cm) - Width 2.5 -Post Debridement (cm) - Depth 0.1 -Total Square (Post) (cm) 8.75 -Area of Debridement (cm) - Length 3.5 -Area of Debridement (cm) - Width 2.5 -Total Square (Area) (cm) 8.75 -Tunneling No -Undermining/Tunneling No -Circular Undermining No -Wound/Ulcer Outcome Not Healed -Ulcer Cleansing Rinsed/ Irrigated with Saline -Foul Odor after Cleansing No -Bioengineered Tissue No -Bleeding Controlled with Pressure -Offloading No -Treatment Response Procedure Tolerated Well -Debridement - Subq, 1st 20sq cm No #35 L Stump -Time 11:47 -Correct Patient Yes -Correct Side, Site, Position Yes -Correct Procedure Yes -Procedure Performed No -Post Debridement (cm) - Length 0 -Post Debridement (cm) - Width 0 -Post Debridement (cm) - Depth 0 -Total Square (Post) (cm) 0 -Tunneling No -Undermining/Tunneling No -Circular Undermining No -Wound/Ulcer Outcome Healed- Epithelialized -Ulcer Cleansing Not Cleansed -Bleeding Controlled with Pressure -Offloading No #28- R MEDIAL FOOT -Time 11:47 -Correct Patient Yes -Correct Side, Site, Position Yes -Correct Procedure Yes -Procedure Performed Yes -Type of Procedure Debridement -Clinical Debridement Subcutaneous -Tissue Removed Subcutaneous -Post Debridement (cm) - Length 3.0 -Post Debridement (cm) - Width 1.2 -Post Debridement (cm) - Depth 0.1 -Total Square (Post) (cm) 3.60 -Area of Debridement (cm) - Length 3.0 -Area of Debridement (cm) - Width 1.2 -Total Square (Area) (cm) 3.60 -Tunneling No -Undermining/Tunneling No -Circular Undermining No -Wound/Ulcer Outcome Not Healed -Ulcer Cleansing Rinsed/ Irrigated with Saline -Foul Odor after Cleansing No -Bioengineered Tissue No -Bleeding Controlled with Pressure -Offloading No -Treatment Response Procedure Tolerated Well -Debridement - Subq, 1st 20sq cm No #37-right 2nd toe -Time 11:47 -Correct Patient Yes -Correct Side, Site, Position Yes -Correct Procedure Yes -Procedure Performed Yes -Type of Procedure Debridement -Clinical Debridement Subcutaneous -Tissue Removed Subcutaneous -Post Debridement (cm) - Length 2.5 -Post Debridement (cm) - Width 1.0 -Post Debridement (cm) - Depth 0.4 -Total Square (Post) (cm) 2.50 -Area of Debridement (cm) - Length 2.5 -Area of Debridement (cm) - Width 1.0 -Total Square (Area) (cm) 2.50 -Tunneling No -Undermining/Tunneling No -Circular Undermining No -Wound/Ulcer Outcome Not Healed -Ulcer Cleansing Rinsed/ Irrigated with Saline -Foul Odor after Cleansing No -Bioengineered Tissue No -Bleeding Controlled with Pressure -Offloading No -Debridement - Subq, 1st 20sq cm No Pain Scale: 0-10 Numeric Is Patient Pain Free? Yes WC - Nurse 3 - General Ulcer D/C NN Start: 12/21/19 10:52 Freq: Status: Active Protocol: Activity Type Activity Date Activity User E-Sign Co-Sign Detail Recorded Client Recorded Date Recorded By Document 12/21/19 12:16 DL [id number] 12/21/19 12:22 DL Document 12/28/19 13:48 [id number] 12/28/19 13:50 12/21/19 12/28/19 12:16 13:48 Wound Care Nurse 3 41. L stump lateral -Ulcer Cleansing Wound Cleanser Rinsed/ Irrigated with Saline -Foul Odor after Cleansing No -Primary Dressing Applied Fibracol Plus Fibracol Plus 4x4 4x4 -Primary Dressing Covered/Secured with Dry Gauze & Dry Gauze Roll Gauze, Secured with Tape -Fibracol Plus 4x4 1 1 39-right lateral foot -Ulcer Cleansing Wound Cleanser Rinsed/ Irrigated with Saline -Foul Odor after Cleansing No No -Primary Dressing Applied Fibracol Plus 4x4 -Other Dressing fibricol -Primary Dressing Covered/Secured with Dry Gauze & Dry Gauze & Roll Gauze, Roll Gauze, Secured with Secured with Tape Tape -Fibracol Plus 4x4 0 #35 L Stump -Ulcer Cleansing Rinsed/ Irrigated with Saline -Foul Odor after Cleansing No -Primary Dressing Applied Fibracol Plus 4x4 -Primary Dressing Covered/Secured with Dry Gauze & Roll Gauze, Secured with Tape -Fibracol Plus 4x4 0 #28- R MEDIAL FOOT -Ulcer Cleansing Wound Cleanser Rinsed/ Irrigated with Saline -Foul Odor after Cleansing No No -Primary Dressing Applied Fibracol Plus 4x4 -Other Dressing fibricol -Primary Dressing Covered/Secured with Dry Gauze,Dry Dry Gauze & Gauze & Roll Roll Gauze, Gauze,Secured Secured with with Tape Tape -Fibracol Plus 4x4 0 #37-right 2nd toe -Ulcer Cleansing Wound Cleanser Rinsed/ Irrigated with Saline -Foul Odor after Cleansing No -Other Dressing fibricol -Primary Dressing Covered/Secured with Dry Gauze & Dry Gauze & Roll Gauze, Roll Gauze Other -Other Covering gauze -Fibracol Plus 4x4 1 0 Right -Other farrow wrap Treatment Response Procedure Tolerated Well Vital Signs Pulse Rate (60-100) 55 L Pulse Location Monitor Blood Pressure (90/60-120/80) 159/68 H Blood Pressure Mean (mm Hg) 98 Source Monitor Pain Scale: 0-10 Numeric Is Patient Pain Free? Yes Yes WC - Visit Discharge Discharge Condition Stable Stable Ambulatory Status Wheelchair Wheelchair Transportation Private Auto Medication Reconcilliation completed & Yes provided to patient/care provider Clinical Summary of Care Provided Yes Wound debrided: leg stump site (central and lateral) Laterality: Left Wound Grade/Stage: grade 1 (prior surgical) Type of Debridement: Excisional debridement Anesthesia Used: 5% Lidocaine Gel Depth: in the subcutaneous layer Percentage of wound debrided: 100 Instrument Used: #15 blade Tissue Removed: fibrous, devitalized subcutaneous, biofilm, slough Severity: Fat Layer Exposed Amount of bleeding with debridement: Mild Bleeding Controlled with: Pressure Patient tolerated procedure well - Additional Wound Wound debrided: dorsal 2nd toe, medial plantar forefoot, sub 5th metatarsal head Laterality: Right Wound Grade/Stage: grade 1 Type of Debridement: Excisional debridement Anesthesia Used: 5% Lidocaine Gel Depth: in the subcutaneous layer Percentage of wound debrided: 100 Instrument Used: #15 blade Tissue Removed: fibrous, devitalized subcutaneous, biofilm, slough Severity: Fat Layer Exposed Amount of bleeding with debridement: Mild Bleeding Controlled with: Pressure Patient tolerated procedure: Patient tolerated procedure well Assessment/Plan Active Problems Nonhealing amputation stump (Chronic) Venous insufficiency (Chronic) Walking difficulty due to ankle and foot (Chronic) Ulcer of left lower extremity with fat layer exposed (Chronic) Ulcer of right foot with fat layer exposed (Chronic) Diabetes mellitus with polyneuropathy (Chronic) Assessment: Open surgical wound anterior aspect left BKA stump. Peripheral vascular disease. Diabetes with neuropathy. Right second toe ulcer, jerez grade 1, no infection. Right plantar lateral forefoot ulcer, jerez grade 1, no infection Plan: I reviewed and discussed his case. For the anterior aspect left BKA stump, will continue Fibracol dressing changes daily. His ulcers to his right foot are noted. All bilateral lower extremity ulcer sites were debrided as noted in the clinical panel. To wash daily with soap and water. To change dressing with Aquacel Ag on the right foot also. To keep pressure off of the ulcer sites and a surgical shoe with heel weightbearing. To ambulate with his potential surgical shoe in place if able to. To continue work with home physical therapy. To continue to optimize healing with improved glycemic index, continued weight reduction, and well-balanced [employer] nutrients. He was reassured no local signs of infection are noted today. Check feet daily monitor for this. His recent hospital admission as noted and I reviewed his medical records that he brought with him today. His white blood cell count was 7.62 during his recent hospital admission before discharge. His hemoglobin A1c was 7.3%. He was discharged home on 500 mg of cephalexin 3 times daily. He has resolution of local and systemic signs of illness and I do not recommend additional antibiotics at this time. To return to clinic in 1 week or call sooner if you have any questions or concerns.
[2020-01-04 11:13] VITALS: BP 168/56; PULSE 62; RESP 16; TEMP 36.8; BMI 47.9
[2020-01-04 12:07] VITALS: BP 151/59; PULSE 53; RESP 18; TEMP 36.7
--- NOTE | 2020-01-04 12:19 | PCM.WC.PN ---
(1) Diabetes mellitus with polyneuropathy Status: Chronic Qualifiers: Code(s): E11.42 - Type 2 diabetes mellitus with diabetic polyneuropathy (2) Nonhealing amputation stump Status: Chronic Code(s): T87.89 - Other complications of amputation stump (3) Ulcer of left lower extremity with fat layer exposed Status: Chronic Code(s): L97.922 - Non-pressure chronic ulcer of unspecified part of left lower leg with fat layer exposed (4) Ulcer of right foot with fat layer exposed Status: Chronic Code(s): L97.512 - Non-pressure chronic ulcer of other part of right foot with fat layer exposed (5) Venous insufficiency Status: Chronic Code(s): I87.2 - Venous insufficiency (chronic) (peripheral) (6) Walking difficulty due to ankle and foot Status: Chronic Code(s): R26.2 - Difficulty in walking, not elsewhere classified Type of Wound Date of Service: 01/04/20 Chief Complaint: Open surgical wound anterior aspect left BKA stump. Right second toe ulcer. 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 He has been managed by his surgeon. He also has multiple right foot ulcers, and has been performing dressing changes as advised. He denies fever, chills, nausea, vomiting. He denies redness or odor. He has been trying to offload and keep his swelling reduced by wearing Tubigrip compression dressings. Progress of Wound: Left below-knee amputation with ulcers stable. right foot ulcer improving and stabilizing - Physical Exam Vital Signs Temp Pulse Resp BP 98.0 F 53 L 18 151/59 H 01/04/20 12:07 01/04/20 12:07 01/04/20 12:07 01/04/20 12:07 General: Alert, Oriented x3, Cooperative, No apparent distress HEENT: Atraumatic Abdomen: - Extremities: No cyanosis, Capillary Refill Less than 3 Seconds, No Calf Tenderness, Diminished Peripheral Pulses, Edema Skin: Ulcer/ Wound - No purulence, erythema, streaking, odor, infection. The skin is hairless and atrophic Wound Measurements and Assessment WC - Nurse 1 - General Ulcer Measurement Start: 12/21/19 10:52 Freq: Status: Active Protocol: Activity Type Activity Date Activity User E-Sign Co-Sign Detail Recorded Client Recorded Date Recorded By Document 01/04/20 11:13 [facility] [id number] 01/04/20 11:27 [facility] 01/04/20 11:13 Wound Center Nurse 1 [Ulcer Assessment] 41. L stump lateral -Combined with other wound No -Current Size (cm) - Length 0.1 -Current Size (cm) - Width 0.1 -Current Size (cm) - Depth 0.1 -Total Square Cm 0.01 -Epithelialization Large 67-100% -Texture (Susy-wound Skin Appearance) Assessed, Scarring -Moisture (Susy-wound Skin Appearance Assessed ) -Color (Susy-wound Skin Appearance) Assessed -Temperature (Susy-wound Skin No Abnormality Appearance) (Pt Warm) -Tenderness on Palpation (Susy-wound No Skin Appearance) -Ulcer Cleansing soapy water -Foul Odor after Cleansing No -Anesthetic Used 4% Lidocaine Solution 39-right lateral foot -Combined with other wound No -Current Size (cm) - Length 2.2 -Current Size (cm) - Width 2.5 -Current Size (cm) - Depth 0.1 -Total Square Cm 5.50 -Photo Taken No -Epithelialization None Present -Tunneling No -Undermining/Tunneling No -Circular Undermining No -Exudate Amt Medium -Exudate Type Serosanguineous -Wound Margin Distinct, Outline Attached -Granulation Amt Medium (34-66%) -Granulation Quality Red -Slough/Fibrin Yes -Necrosis Amt Medium (34-66%) -Necrotic Tissue Type Adherent Slough -Texture (Susy-wound Skin Appearance) Assessed, Scarring -Moisture (Susy-wound Skin Appearance Assessed,Dry/ ) Scaly -Color (Susy-wound Skin Appearance) Assessed -Temperature (Susy-wound Skin No Abnormality Appearance) (Pt Warm) -Tenderness on Palpation (Susy-wound No Skin Appearance) -Ulcer Cleansing soapy water -Foul Odor after Cleansing No -Anesthetic Used 4% Lidocaine Solution #35 L Stump -Combined with other wound No -Current Size (cm) - Length 0.6 -Current Size (cm) - Width 2.5 -Current Size (cm) - Depth 0.2 -Total Square Cm 1.50 -Photo Taken No -Epithelialization None Present -Tunneling No -Undermining/Tunneling No -Circular Undermining No -Exudate Amt Small -Exudate Type Serosanguineous -Wound Margin Distinct, Outline Attached -Granulation Amt Medium (34-66%) -Granulation Quality Red -Slough/Fibrin Yes -Necrosis Amt Medium (34-66%) -Necrotic Tissue Type Adherent Slough -Texture (Susy-wound Skin Appearance) Assessed, Scarring -Moisture (Susy-wound Skin Appearance Assessed,Dry/ ) Scaly -Color (Susy-wound Skin Appearance) Assessed -Temperature (Susy-wound Skin No Abnormality Appearance) (Pt Warm) -Tenderness on Palpation (Susy-wound No Skin Appearance) -Ulcer Cleansing soapy water -Foul Odor after Cleansing No -Anesthetic Used 4% Lidocaine Solution #42- R MEDIAL FOOT -Combined with other wound No -Current Size (cm) - Length 0.9 -Current Size (cm) - Width 2.5 -Current Size (cm) - Depth 0.2 -Total Square Cm 2.25 -Photo Taken No -Epithelialization Small 1-33% -Tunneling No -Undermining/Tunneling No -Circular Undermining No -Exudate Amt Medium -Exudate Type Serosanguineous -Wound Margin Distinct, Outline Attached -Granulation Amt Medium (34-66%) -Granulation Quality Pale,[place] -Slough/Fibrin Yes -Necrosis Amt Medium (34-66%) -Necrotic Tissue Type Adherent Slough -Texture (Susy-wound Skin Appearance) Assessed,Callus ,Scarring -Moisture (Susy-wound Skin Appearance Assessed,Dry/ ) Scaly -Color (Susy-wound Skin Appearance) Assessed -Temperature (Susy-wound Skin No Abnormality Appearance) (Pt Warm) -Tenderness on Palpation (Susy-wound No Skin Appearance) -Ulcer Cleansing soapy water -Foul Odor after Cleansing No -Anesthetic Used 4% Lidocaine Solution #37-right 2nd toe -Combined with other wound No -Current Size (cm) - Length 1 -Current Size (cm) - Width 1 -Current Size (cm) - Depth 0.3 -Total Square Cm 1 -Photo Taken No -Epithelialization None Present -Tunneling No -Undermining/Tunneling No -Exudate Amt Medium -Exudate Type Serosanguineous -Wound Margin Distinct, Outline Attached -Granulation Amt Large (67-100%) -Granulation Quality Red -Slough/Fibrin Yes -Necrosis Amt Medium (34-66%) -Necrotic Tissue Type Adherent Slough -Texture (Susy-wound Skin Appearance) Assessed,Callus -Moisture (Susy-wound Skin Appearance Assessed,Dry/ ) Scaly -Color (Susy-wound Skin Appearance) Assessed -Temperature (Susy-wound Skin No Abnormality Appearance) (Pt Warm) -Tenderness on Palpation (Susy-wound No Skin Appearance) -Ulcer Cleansing soapy water -Foul Odor after Cleansing No -Anesthetic Used 4% Lidocaine Solution [Edema Assessment] -Lower Limb Edema Present Yes -Right Calf (cm) 41 -Right Ankle (cm) 29.5 WC - Nurse 2 - General Ulcer CM Notes Start: 12/21/19 10:52 Freq: Status: Active Protocol: Activity Type Activity Date Activity User E-Sign Co-Sign Detail Recorded Client Recorded Date Recorded By Document 01/04/20 11:57 [facility] [id number] 01/04/20 12:02 NORRIS 01/04/20 11:57 Wound Center Nurse 2 [Procedure/Treatment] 41. L stump lateral -Correct Patient No -Correct Side, Site, Position No -Correct Procedure No -Procedure Performed No -Post Debridement (cm) - Length 0 -Post Debridement (cm) - Width 0 -Post Debridement (cm) - Depth 0 -Total Square (Post) (cm) 0 -Area of Debridement (cm) - Length 0 -Area of Debridement (cm) - Width 0 -Total Square (Area) (cm) 0 -Wound/Ulcer Outcome Healed- Epithelialized 39-right lateral foot -Time 11:59 -Correct Patient Yes -Correct Side, Site, Position Yes -Correct Procedure Yes -Procedure Performed Yes -Type of Procedure Debridement -Clinical Debridement Subcutaneous -Tissue Removed Subcutaneous -Post Debridement (cm) - Length 2.3 -Post Debridement (cm) - Width 2.5 -Post Debridement (cm) - Depth 0.1 -Total Square (Post) (cm) 5.75 -Area of Debridement (cm) - Length 2.3 -Area of Debridement (cm) - Width 2.5 -Total Square (Area) (cm) 5.75 -Tunneling No -Undermining/Tunneling No -Circular Undermining No -Wound/Ulcer Outcome Not Healed -Ulcer Cleansing Rinsed/ Irrigated with Saline -Foul Odor after Cleansing No -Bioengineered Tissue No -Bleeding Controlled with Pressure -Offloading Yes -Type of Offloading Surgical Shoe -Treatment Response Procedure Tolerated Well -Debridement - Subq, 1st 20sq cm No #35 L Stump -Time 12:00 -Correct Patient Yes -Correct Side, Site, Position Yes -Correct Procedure Yes -Procedure Performed Yes -Type of Procedure Debridement -Clinical Debridement Subcutaneous -Tissue Removed Subcutaneous -Post Debridement (cm) - Length 0.7 -Post Debridement (cm) - Width 2.5 -Post Debridement (cm) - Depth 0.2 -Total Square (Post) (cm) 1.75 -Area of Debridement (cm) - Length 0.7 -Area of Debridement (cm) - Width 2.5 -Total Square (Area) (cm) 1.75 -Tunneling No -Undermining/Tunneling No -Circular Undermining No -Wound/Ulcer Outcome Not Healed -Ulcer Cleansing Rinsed/ Irrigated with Saline -Foul Odor after Cleansing No -Bioengineered Tissue No -Bleeding Controlled with Pressure -Offloading Yes -Type of Offloading Surgical Shoe -Treatment Response Procedure Tolerated Well -Debridement - Subq, 20sq cm No #42- R MEDIAL FOOT -Time 12:01 -Correct Patient Yes -Correct Side, Site, Position Yes -Correct Procedure Yes -Procedure Performed Yes -Type of Procedure Debridement -Clinical Debridement Subcutaneous -Tissue Removed Subcutaneous -Post Debridement (cm) - Length 1.0 -Post Debridement (cm) - Width 2.5 -Post Debridement (cm) - Depth 0.2 -Total Square (Post) (cm) 2.50 -Area of Debridement (cm) - Length 1.0 -Area of Debridement (cm) - Width 2.5 -Total Square (Area) (cm) 2.50 -Tunneling No -Undermining/Tunneling No -Circular Undermining No -Wound/Ulcer Outcome Not Healed -Ulcer Cleansing Rinsed/ Irrigated with Saline -Foul Odor after Cleansing No -Bioengineered Tissue No -Bleeding Controlled with Pressure -Offloading Yes -Type of Offloading Surgical Shoe -Treatment Response Procedure Tolerated Well -Debridement - Subq, 1st 20sq cm No #37-right 2nd toe -Time 12:01 -Correct Patient Yes -Correct Side, Site, Position Yes -Correct Procedure Yes -Procedure Performed Yes -Type of Procedure Debridement -Clinical Debridement Subcutaneous -Tissue Removed Subcutaneous -Post Debridement (cm) - Length 1.1 -Post Debridement (cm) - Width 1.1 -Post Debridement (cm) - Depth 0.3 -Total Square (Post) (cm) 1.21 -Area of Debridement (cm) - Length 1.1 -Area of Debridement (cm) - Width 1.1 -Total Square (Area) (cm) 1.21 -Tunneling No -Undermining/Tunneling No -Circular Undermining No -Wound/Ulcer Outcome Not Healed -Ulcer Cleansing Rinsed/ Irrigated with Saline -Foul Odor after Cleansing No -Bioengineered Tissue No -Bleeding Controlled with Pressure -Offloading Yes -Type of Offloading Surgical Shoe -Treatment Response Procedure Tolerated Well -Debridement - Subq, 1st 20sq cm Yes [See Physician Procedure note for Specifics] Pain Scale: 0-10 Numeric [Pain] -Is Patient Pain Free? Yes WC - Nurse 3 - General Ulcer D/C NN Start: 12/21/19 10:52 Freq: Status: Active Protocol: Activity Type Activity Date Activity User E-Sign Co-Sign Detail Recorded Client Recorded Date Recorded By Document 01/04/20 12:07 NORRIS [id number] 01/04/20 12:09 NORRIS 01/04/20 12:07 Wound Care Nurse 3 [Wound Dressing] 39-right lateral foot -Ulcer Cleansing Rinsed/ Irrigated with Saline -Foul Odor after Cleansing No -Primary Dressing Applied Fibracol Plus 4x4 -Primary Dressing Covered/Secured Dry Gauze & with Roll Gauze, Secured with Tape -Fibracol Plus 4x4 1 #35 L Stump -Ulcer Cleansing Rinsed/ Irrigated with Saline -Foul Odor after Cleansing No -Primary Dressing Applied Fibracol Plus 4x4 -Primary Dressing Covered/Secured Dry Gauze & with Roll Gauze, Secured with Tape -Fibracol Plus 4x4 0 #42- R MEDIAL FOOT -Ulcer Cleansing Rinsed/ Irrigated with Saline -Foul Odor after Cleansing No -Primary Dressing Applied Fibracol Plus 4x4 -Primary Dressing Covered/Secured Dry Gauze & with Roll Gauze, Secured with Tape -Fibracol Plus 4x4 0 #37-right 2nd toe -Ulcer Cleansing Rinsed/ Irrigated with Saline -Foul Odor after Cleansing No -Primary Dressing Applied Fibracol Plus 4x4 -Primary Dressing Covered/Secured Dry Gauze & with Roll Gauze, Secured with Tape -Fibracol Plus 4x4 0 Vital Signs [Temperature Protocol: VS] -Temperature (97.8 F-99.1 F) 98.0 F -Temperature Source Temporal [Pulse] -Pulse Rate (60-100) 53 L -Pulse Location Monitor [Respirations] -Respiratory Rate (12-18) 18 -Respiratory rate source Observation [Blood Pressure] -Blood Pressure (90/60-120/80) 151/59 H -Blood Pressure Mean (mm Hg) 89 -Source Monitor -Position Semi-Fowlers -Blood Pressure Location Right Arm Pain Scale: 0-10 Numeric [Pain] -Is Patient Pain Free? Yes WC - Visit Discharge [Visit Discharge Information] -Discharge Condition Stable -Ambulatory Status Wheelchair -Transportation Private Auto -Medication Reconcilliation completed Yes & provided to patient/care provider -Clinical Summary of Care Provided Yes Musculoskeletal: No Tenderness to Palpation of Joints or Extremities, Muscle Wasting, - - No bogginess or fluctuance. Compartments are soft to palpate Neurological: - - Lack of epicritic sensation light touch is consistent with neuropathy status Psych/Mental Status: Normal Affect, Appropriate Debridement Note Post-Debridement Measurements/Treatment - Nurse 2 - General Ulcer CM Notes Start: 12/21/19 10:52 Freq: Status: Active Protocol: Activity Type Activity Date Activity User E-Sign Co-Sign Detail Recorded Client Recorded Date Recorded By Document 12/21/19 11:43 MW [id number] 12/21/19 11:53 MW Document 12/28/19 14:54 JF [id number] 12/28/19 14:58 Document 01/04/20 11:57 [id number] 01/04/20 12:02 12/21/19 12/28/19 01/04/20 11:43 14:54 11:57 Wound Center Nurse 2 41. L stump lateral -Time 11:45 14:55 -Correct Patient Yes Yes No -Correct Side, Site, Position Yes Yes No -Correct Procedure Yes Yes No -Procedure Performed Yes No -Type of Procedure Debridement -Clinical Debridement Subcutaneous Subcutaneous -Tissue Removed Subcutaneous Subcutaneous -Post Debridement (cm) - Length 0.8 0.2 0 -Post Debridement (cm) - Width 2.0 0.1 0 -Post Debridement (cm) - Depth 0.1 0.1 0 -Total Square (Post) (cm) 1.60 0.02 0 -Area of Debridement (cm) - Length 0.8 0.2 0 -Area of Debridement (cm) - Width 2.0 0.1 0 -Total Square (Area) (cm) 1.60 0.02 0 -Tunneling No No -Undermining/Tunneling No No -Circular Undermining No No -Wound/Ulcer Outcome Not Healed Not Healed Healed- Epithelialized -Ulcer Cleansing Rinsed/ Rinsed/ Irrigated with Irrigated with Saline Saline -Foul Odor after Cleansing No No -Bioengineered Tissue No No -Bleeding Controlled with Pressure Pressure -Offloading No No -Treatment Response Procedure Procedure Tolerated Well Tolerated Well -Debridement - Subq, 1st 20sq cm Yes No 39-right lateral foot -Time 11:46 14:55 11:59 -Correct Patient Yes Yes Yes -Correct Side, Site, Position Yes Yes Yes -Correct Procedure Yes Yes Yes -Procedure Performed Yes Yes -Type of Procedure Debridement Debridement Debridement -Clinical Debridement Subcutaneous Subcutaneous Subcutaneous -Tissue Removed Subcutaneous Subcutaneous Subcutaneous -Post Debridement (cm) - Length 3.5 2.5 2.3 -Post Debridement (cm) - Width 2.5 2.3 2.5 -Post Debridement (cm) - Depth 0.1 0.1 0.1 -Total Square (Post) (cm) 8.75 5.75 5.75 -Area of Debridement (cm) - Length 3.5 2.5 2.3 -Area of Debridement (cm) - Width 2.5 2.3 2.5 -Total Square (Area) (cm) 8.75 5.75 5.75 -Tunneling No No No -Undermining/Tunneling No No No -Circular Undermining No No No -Wound/Ulcer Outcome Not Healed Not Healed Not Healed -Ulcer Cleansing Rinsed/ Rinsed/ Rinsed/ Irrigated with Irrigated with Irrigated with Saline Saline Saline -Foul Odor after Cleansing No No No -Bioengineered Tissue No No No -Bleeding Controlled with Pressure Pressure Pressure -Offloading No Yes Yes -Type of Offloading Surgical Shoe Surgical Shoe -Treatment Response Procedure Procedure Procedure Tolerated Well Tolerated Well Tolerated Well -Debridement - Subq, 1st 20sq cm No Yes No #35 L Stump -Time 11:47 14:56 12:00 -Correct Patient Yes Yes Yes -Correct Side, Site, Position Yes Yes Yes -Correct Procedure Yes Yes Yes -Procedure Performed No Yes Yes -Type of Procedure Debridement Debridement -Clinical Debridement Subcutaneous Subcutaneous -Tissue Removed Subcutaneous Subcutaneous -Post Debridement (cm) - Length 0 0.8 0.7 -Post Debridement (cm) - Width 0 2.0 2.5 -Post Debridement (cm) - Depth 0 0.2 0.2 -Total Square (Post) (cm) 0 1.60 1.75 -Area of Debridement (cm) - Length 0.8 0.7 -Area of Debridement (cm) - Width 2.0 2.5 -Total Square (Area) (cm) 1.60 1.75 -Tunneling No No No -Undermining/Tunneling No No No -Circular Undermining No No No -Wound/Ulcer Outcome Healed- Not Healed Not Healed Epithelialized -Ulcer Cleansing Not Cleansed Rinsed/ Rinsed/ Irrigated with Irrigated with Saline Saline -Foul Odor after Cleansing No No -Bioengineered Tissue No No -Bleeding Controlled with Pressure Pressure Pressure -Offloading No No Yes -Type of Offloading Surgical Shoe -Treatment Response Procedure Procedure Tolerated Well Tolerated Well -Debridement - Subq, 1st 20sq cm No No #42- R MEDIAL FOOT -Time 11:47 14:56 12:01 -Correct Patient Yes Yes Yes -Correct Side, Site, Position Yes Yes Yes -Correct Procedure Yes Yes Yes -Procedure Performed Yes Yes Yes -Type of Procedure Debridement Debridement Debridement -Clinical Debridement Subcutaneous Subcutaneous Subcutaneous -Tissue Removed Subcutaneous Subcutaneous Subcutaneous -Post Debridement (cm) - Length 3.0 1.1 1.0 -Post Debridement (cm) - Width 1.2 2.5 2.5 -Post Debridement (cm) - Depth 0.1 0.2 0.2 -Total Square (Post) (cm) 3.60 2.75 2.50 -Area of Debridement (cm) - Length 3.0 1.1 1.0 -Area of Debridement (cm) - Width 1.2 2.5 2.5 -Total Square (Area) (cm) 3.60 2.75 2.50 -Tunneling No No No -Undermining/Tunneling No No No -Circular Undermining No No No -Wound/Ulcer Outcome Not Healed Not Healed Not Healed -Ulcer Cleansing Rinsed/ Rinsed/ Rinsed/ Irrigated with Irrigated with Irrigated with Saline Saline Saline -Foul Odor after Cleansing No No No -Bioengineered Tissue No No No -Bleeding Controlled with Pressure Pressure Pressure -Offloading No Yes Yes -Type of Offloading Surgical Shoe Surgical Shoe -Treatment Response Procedure Procedure Procedure Tolerated Well Tolerated Well Tolerated Well -Debridement - Subq, 1st 20sq cm No No No #37-right 2nd toe -Time 11:47 14:57 12:01 -Correct Patient Yes Yes Yes -Correct Side, Site, Position Yes Yes Yes -Correct Procedure Yes Yes Yes -Procedure Performed Yes Yes Yes -Type of Procedure Debridement Debridement Debridement -Clinical Debridement Subcutaneous Subcutaneous Subcutaneous -Tissue Removed Subcutaneous Subcutaneous Subcutaneous -Post Debridement (cm) - Length 2.5 2.5 1.1 -Post Debridement (cm) - Width 1.0 2.2 1.1 -Post Debridement (cm) - Depth 0.4 0.3 0.3 -Total Square (Post) (cm) 2.50 5.50 1.21 -Area of Debridement (cm) - Length 2.5 2.5 1.1 -Area of Debridement (cm) - Width 1.0 2.2 1.1 -Total Square (Area) (cm) 2.50 5.50 1.21 -Tunneling No No No -Undermining/Tunneling No No No -Circular Undermining No No No -Wound/Ulcer Outcome Not Healed Not Healed Not Healed -Ulcer Cleansing Rinsed/ Rinsed/ Rinsed/ Irrigated with Irrigated with Irrigated with Saline Saline Saline -Foul Odor after Cleansing No No No -Bioengineered Tissue No No No -Bleeding Controlled with Pressure Pressure Pressure -Offloading No Yes Yes -Type of Offloading Surgical Shoe Surgical Shoe -Treatment Response Procedure Procedure Tolerated Well Tolerated Well -Debridement - Subq, 1st 20sq cm No No Yes Pain Scale: 0-10 Numeric Is Patient Pain Free? Yes Yes Yes - Nurse 3 - General Ulcer D/C NN Start: 12/21/19 10:52 Freq: Status: Active Protocol: Activity Type Activity Date Activity User E-Sign Co-Sign Detail Recorded Client Recorded Date Recorded By Document 12/21/19 12:16 DL [id number] 12/21/19 12:22 DL Document 12/28/19 13:48 JF [id number] 12/28/19 13:50 JF Document 01/04/20 12:07 JF [id number] 01/04/20 12:09 JF 12/21/19 12/28/19 01/04/20 12:16 13:48 12:07 Wound Care Nurse 3 41. L stump lateral -Ulcer Cleansing Wound Cleanser Rinsed/ Irrigated with Saline -Foul Odor after Cleansing No -Primary Dressing Applied Fibracol Plus Fibracol Plus 4x4 4x4 -Primary Dressing Covered/Secured with Dry Gauze & Dry Gauze Roll Gauze, Secured with Tape -Fibracol Plus 4x4 1 1 39-right lateral foot -Ulcer Cleansing Wound Cleanser Rinsed/ Rinsed/ Irrigated with Irrigated with Saline Saline -Foul Odor after Cleansing No No No -Primary Dressing Applied Fibracol Plus Fibracol Plus 4x4 4x4 -Other Dressing fibricol -Primary Dressing Covered/Secured with Dry Gauze & Dry Gauze & Dry Gauze & Roll Gauze, Roll Gauze, Roll Gauze, Secured with Secured with Secured with Tape Tape Tape -Fibracol Plus 4x4 0 1 #35 L Stump -Ulcer Cleansing Rinsed/ Rinsed/ Irrigated with Irrigated with Saline Saline -Foul Odor after Cleansing No No -Primary Dressing Applied Fibracol Plus Fibracol Plus 4x4 4x4 -Primary Dressing Covered/Secured with Dry Gauze & Dry Gauze & Roll Gauze, Roll Gauze, Secured with Secured with Tape Tape -Fibracol Plus 4x4 0 0 #42- R MEDIAL FOOT -Ulcer Cleansing Wound Cleanser Rinsed/ Rinsed/ Irrigated with Irrigated with Saline Saline -Foul Odor after Cleansing No No No -Primary Dressing Applied Fibracol Plus Fibracol Plus 4x4 4x4 -Other Dressing fibricol -Primary Dressing Covered/Secured with Dry Gauze,Dry Dry Gauze & Dry Gauze & Gauze & Roll Roll Gauze, Roll Gauze, Gauze,Secured Secured with Secured with with Tape Tape Tape -Fibracol Plus 4x4 0 0 #37-right 2nd toe -Ulcer Cleansing Wound Cleanser Rinsed/ Rinsed/ Irrigated with Irrigated with Saline Saline -Foul Odor after Cleansing No No -Primary Dressing Applied Fibracol Plus 4x4 -Other Dressing fibricol -Primary Dressing Covered/Secured with Dry Gauze & Dry Gauze & Dry Gauze & Roll Gauze, Roll Gauze Roll Gauze, Other Secured with Tape -Other Covering gauze -Fibracol Plus 4x4 1 0 0 Right -Other farrow wrap Treatment Response Procedure Tolerated Well Temperature (97.8 F-99.1 F) 98.0 F Temperature Source Temporal Vital Signs Pulse Rate (60-100) 55 L 59 L 53 L Pulse Location Monitor Monitor Monitor Respiratory Rate (12-18) 16 18 Respiratory rate source Observation Observation Blood Pressure (90/60-120/80) 159/68 H 153/90 H 151/59 H Blood Pressure Mean (mm Hg) 98 111 89 Source Monitor Monitor Monitor Position Semi-Fowlers Semi-Fowlers Blood Pressure Location Left Arm Right Arm Pain Scale: 0-10 Numeric Is Patient Pain Free? Yes Yes Yes WC - Visit Discharge Discharge Condition Stable Stable Stable Ambulatory Status Wheelchair Wheelchair Wheelchair Transportation Private Auto Private Auto Medication Reconcilliation completed & Yes Yes provided to patient/care provider Clinical Summary of Care Provided Yes Yes Wound debrided: Central below-knee amputation stump site Laterality: Left Wound Grade/Stage: grade 1 (prior surgical site) Type of Debridement: Excisional debridement Anesthesia Used: 5% Lidocaine Gel Depth: in the subcutaneous layer Percentage of wound debrided: 100 Instrument Used: #15 blade Tissue Removed: fibrous, devitalized subcutaneous, biofilm, slough Severity: Fat Layer Exposed Amount of bleeding with debridement: Mild Bleeding Controlled with: Pressure Patient tolerated procedure well - Additional Wound Wound debrided: dorsal 2nd toe, plantar medial foot, plantar lateral foot Laterality: Right Wound Grade/Stage: grade 1 Type of Debridement: Excisional debridement Anesthesia Used: 5% Lidocaine Gel Depth: in the subcutaneous layer Percentage of wound debrided: 100 Instrument Used: #15 blade Tissue Removed: fibrous, devitalized subcutaneous, biofilm, slough Severity: Fat Layer Exposed Amount of bleeding with debridement: Mild Bleeding Controlled with: Pressure Patient tolerated procedure: Patient tolerated procedure well Assessment/Plan Active Problems Nonhealing amputation stump (Chronic) Venous insufficiency (Chronic) Walking difficulty due to ankle and foot (Chronic) Ulcer of left lower extremity with fat layer exposed (Chronic) Ulcer of right foot with fat layer exposed (Chronic) Diabetes mellitus with polyneuropathy (Chronic) Assessment: Open surgical wound anterior aspect left BKA stump. Peripheral vascular disease. Diabetes with neuropathy. Right second toe ulcer, jerez grade 1, no infection. Right plantar lateral forefoot ulcer, jerez grade 1, no infection. Right planatar medial forefoot ulcer, jerez grade 1, no infection Plan: I reviewed and discussed his case. For the anterior aspect left BKA stump, will continue Fibracol dressing changes daily. His ulcers to his right foot are noted. All bilateral lower extremity ulcer sites were debrided as noted in the clinical panel. To wash daily with soap and water. To change dressing with Aquacel Ag on the right foot also. To keep pressure off of the ulcer sites and a surgical shoe with heel weightbearing. To ambulate with his potential surgical shoe in place if able to. To continue work with home physical therapy. To continue to optimize healing with improved glycemic index, continued weight reduction, and well-balanced [employer] nutrients. He was reassured no local signs of infection are noted today. Check feet daily monitor for this. His recent hospital admission as noted and I reviewed his medical records that he brought with him today. His white blood cell count was 7.62 during his recent hospital admission before discharge. His hemoglobin A1c was 7.3%. He was discharged home on 500 mg of cephalexin 3 times daily. He has resolution of local and systemic signs of illness and I do not recommend additional antibiotics at this time. To return to clinic in 1 week or call sooner if you have any questions or concerns.
[2020-01-04 12:20] VITALS: BP 123/75; PULSE 82; RESP 16
[2020-01-11 10:55] VITALS: BP 140/62; PULSE 49; RESP 20; TEMP 36.3; BMI 47.9
[2020-01-11 11:33] VITALS: BP 133/57; PULSE 50; RESP 16; TEMP 36.7
--- NOTE | 2020-01-11 12:48 | PCM.WC.PN ---
(1) Diabetes mellitus with polyneuropathy Status: Chronic Qualifiers: Code(s): E11.42 - Type 2 diabetes mellitus with diabetic polyneuropathy (2) Nonhealing amputation stump Status: Chronic Code(s): T87.89 - Other complications of amputation stump (3) Ulcer of left lower extremity with fat layer exposed Status: Chronic Code(s): L97.922 - Non-pressure chronic ulcer of unspecified part of left lower leg with fat layer exposed (4) Ulcer of right foot with fat layer exposed Status: Chronic Code(s): L97.512 - Non-pressure chronic ulcer of other part of right foot with fat layer exposed (5) Venous insufficiency Status: Chronic Code(s): I87.2 - Venous insufficiency (chronic) (peripheral) (6) Walking difficulty due to ankle and foot Status: Chronic Code(s): R26.2 - Difficulty in walking, not elsewhere classified Type of Wound Date of Service: 01/11/20 Chief Complaint: Open surgical wound anterior aspect left BKA stump. Right second toe ulcer. Right plantar lateral foot ulcer. 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 He has been managed by his surgeon. He also has multiple right foot ulcers, and has been performing dressing changes as advised. He denies fever, chills, nausea, vomiting. He denies redness or odor. He has been trying to offload and keep his swelling reduced by wearing Tubigrip compression dressings. He relates a combination of a dressing applied a little different and also has fluctuating swelling has contributed to him getting a new right upper leg bernstein ulcer within the past week. It is sensitive to touch and painful. He denies odor or redness. Progress of Wound: Left below-knee amputation with ulcers stable. right foot ulcers improving (medial foot, dorsal 2nd toe, lateral foot). New right leg ulcer, stable - Physical Exam Vital Signs Temp Pulse Resp BP 98.0 F 50 L 16 133/57 H 01/11/20 11:33 01/11/20 11:33 01/11/20 11:33 01/11/20 11:33 General: Alert, Oriented x3, Cooperative, No apparent distress HEENT: Atraumatic Extremities: No cyanosis, Capillary Refill Less than 3 Seconds, No Calf Tenderness - Negative [place] present time right, Diminished Peripheral Pulses, Edema, - - Left below-knee amputation, right hallux amputation Skin: Ulcer/ Wound - No purulence, erythema, streaking, odor, infection to all ulcer sites. New skin discontinuity to anterior proximal leg with some hemorrhagic and subcutaneous tissue exposed. His skin is hairless and atrophic Wound Measurements and Assessment WC - Nurse 1 - General Ulcer Measurement Start: 12/21/19 10:52 Freq: Status: Active Protocol: Activity Type Activity Date Activity User E-Sign Co-Sign Detail Recorded Client Recorded Date Recorded By Document 01/11/20 10:55 DL [id number] 01/11/20 11:05 DL 01/11/20 10:55 Wound Center Nurse 1 [Ulcer Assessment] 39-right lateral foot -Current Size (cm) - Length 2.2 -Current Size (cm) - Width 1.5 -Current Size (cm) - Depth 0.1 -Total Square Cm 3.30 -Exudate Amt Medium -Exudate Type Serosanguineous -Wound Margin Flat & Intact -Granulation Amt Large (67-100%) -Granulation Quality Pale,[place] -Necrosis Amt Small (1-33%) -Necrotic Tissue Type Adherent Slough -Texture (Susy-wound Skin Appearance) Assessed -Moisture (Susy-wound Skin Appearance Assessed, ) Maceration, Weeping -Color (Susy-wound Skin Appearance) Assessed -Temperature (Susy-wound Skin No Abnormality Appearance) (Pt Warm) -Tenderness on Palpation (Susy-wound No Skin Appearance) -Ulcer Cleansing Rinsed/ Irrigated with Saline -Foul Odor after Cleansing No -Anesthetic Used 4% Lidocaine Solution #35 L Stump -Current Size (cm) - Length 1.0 -Current Size (cm) - Width 2.5 -Current Size (cm) - Depth 0.2 -Total Square Cm 2.50 -Exudate Amt Medium -Exudate Type Serosanguineous -Wound Margin Flat & Intact -Granulation Amt Large (67-100%) -Granulation Quality Pale,[place] -Necrosis Amt Small (1-33%) -Necrotic Tissue Type Adherent Slough -Texture (Susy-wound Skin Appearance) Assessed -Moisture (Susy-wound Skin Appearance Assessed, ) Maceration -Color (Susy-wound Skin Appearance) Assessed -Temperature (Susy-wound Skin No Abnormality Appearance) (Pt Warm) -Tenderness on Palpation (Susy-wound No Skin Appearance) -Ulcer Cleansing Rinsed/ Irrigated with Saline -Foul Odor after Cleansing Yes -Anesthetic Used 4% Lidocaine Solution #42- R MEDIAL FOOT -Current Size (cm) - Length 2.4 -Current Size (cm) - Width 0.8 -Current Size (cm) - Depth 0.1 -Total Square Cm 1.92 -Exudate Amt Small -Exudate Type Serous -Wound Margin Flat & Intact -Granulation Amt Medium (34-66%) -Granulation Quality Pale,[place] -Necrosis Amt Medium (34-66%) -Necrotic Tissue Type Adherent Slough -Texture (Susy-wound Skin Appearance) Assessed,Callus -Moisture (Susy-wound Skin Appearance Assessed, ) Maceration -Color (Susy-wound Skin Appearance) Assessed -Temperature (Susy-wound Skin No Abnormality Appearance) (Pt Warm) -Tenderness on Palpation (Susy-wound No Skin Appearance) -Ulcer Cleansing Rinsed/ Irrigated with Saline -Foul Odor after Cleansing No -Anesthetic Used 4% Lidocaine Solution #37-right 2nd toe -Current Size (cm) - Length 0.3 -Current Size (cm) - Width 0.3 -Current Size (cm) - Depth 0.1 -Total Square Cm 0.09 -Exudate Amt Small -Exudate Type Serous -Wound Margin Flat & Intact -Granulation Amt Medium (34-66%) -Granulation Quality Pale,[place] -Slough/Fibrin No -Necrosis Amt Medium (34-66%) -Texture (Susy-wound Skin Appearance) Assessed -Moisture (Susy-wound Skin Appearance Assessed, ) Weeping -Color (Susy-wound Skin Appearance) Assessed -Temperature (Susy-wound Skin No Abnormality Appearance) (Pt Warm) -Tenderness on Palpation (Susy-wound No Skin Appearance) -Ulcer Cleansing Rinsed/ Irrigated with Saline -Foul Odor after Cleansing No -Anesthetic Used 4% Lidocaine Solution [Edema Assessment] -Lower Limb Edema Present Yes -Right Calf (cm) 44.5 -Right Ankle (cm) 29.5 WC - Nurse 2 - General Ulcer CM Notes Start: 12/21/19 10:52 Freq: Status: Active Protocol: Activity Type Activity Date Activity User E-Sign Co-Sign Detail Recorded Client Recorded Date Recorded By Document 01/11/20 11:18 NORRIS [id number] 01/11/20 11:26 JF 01/11/20 11:18 Wound Center Nurse 2 [Procedure/Treatment] 42-right bernstein -Time 11:25 -Correct Patient Yes -Correct Side, Site, Position Yes -Correct Procedure Yes -Procedure Performed Yes -Type of Procedure Debridement -Clinical Debridement Subcutaneous -Tissue Removed Subcutaneous -Post Debridement (cm) - Length 3.0 -Post Debridement (cm) - Width 4.5 -Post Debridement (cm) - Depth 0.1 -Total Square (Post) (cm) 13.50 -Area of Debridement (cm) - Length 3.0 -Area of Debridement (cm) - Width 4.5 -Total Square (Area) (cm) 13.50 -Tunneling No -Undermining/Tunneling No -Circular Undermining No -Wound/Ulcer Outcome Not Healed -Ulcer Cleansing Rinsed/ Irrigated with Saline -Foul Odor after Cleansing No -Bioengineered Tissue No -Bleeding Controlled with Pressure -Offloading No -Treatment Response Procedure Tolerated Well -Debridement - Subq, 1st 20sq cm No 39-right lateral foot -Time 11:18 -Correct Patient Yes -Correct Side, Site, Position Yes -Correct Procedure Yes -Procedure Performed Yes -Type of Procedure Debridement -Clinical Debridement Subcutaneous -Tissue Removed Subcutaneous -Post Debridement (cm) - Length 2.2 -Post Debridement (cm) - Width 1.6 -Post Debridement (cm) - Depth 0.1 -Total Square (Post) (cm) 3.52 -Area of Debridement (cm) - Length 2.2 -Area of Debridement (cm) - Width 1.6 -Total Square (Area) (cm) 3.52 -Tunneling No -Undermining/Tunneling No -Circular Undermining No -Wound/Ulcer Outcome Not Healed -Ulcer Cleansing Rinsed/ Irrigated with Saline -Foul Odor after Cleansing No -Bioengineered Tissue No -Bleeding Controlled with Pressure -Offloading Yes -Type of Offloading Surgical Shoe -Treatment Response Procedure Tolerated Well -Debridement - Subq, 1st 20sq cm Yes -Debridement, SubQ, ea addt'l 20sq cm 1 or part thereof #35 L Stump -Time 11:19 -Correct Patient Yes -Correct Side, Site, Position Yes -Correct Procedure Yes -Procedure Performed Yes -Type of Procedure Debridement -Clinical Debridement Subcutaneous -Tissue Removed Subcutaneous -Post Debridement (cm) - Length 1.1 -Post Debridement (cm) - Width 2.5 -Post Debridement (cm) - Depth 0.2 -Total Square (Post) (cm) 2.75 -Area of Debridement (cm) - Length 1.1 -Area of Debridement (cm) - Width 2.5 -Total Square (Area) (cm) 2.75 -Tunneling No -Undermining/Tunneling No -Circular Undermining No -Wound/Ulcer Outcome Not Healed -Ulcer Cleansing Rinsed/ Irrigated with Saline -Foul Odor after Cleansing No -Bioengineered Tissue No -Bleeding Controlled with Pressure -Offloading No -Treatment Response Procedure Tolerated Well -Debridement - Subq, 1st 20sq cm No #42- R MEDIAL FOOT -Time 11:19 -Correct Patient Yes -Correct Side, Site, Position Yes -Correct Procedure Yes -Procedure Performed Yes -Type of Procedure Debridement -Clinical Debridement Subcutaneous -Tissue Removed Subcutaneous -Post Debridement (cm) - Length 2.5 -Post Debridement (cm) - Width 0.8 -Post Debridement (cm) - Depth 0.1 -Total Square (Post) (cm) 2.00 -Area of Debridement (cm) - Length 2.5 -Area of Debridement (cm) - Width 0.8 -Total Square (Area) (cm) 2.00 -Tunneling No -Undermining/Tunneling No -Circular Undermining No -Wound/Ulcer Outcome Not Healed -Ulcer Cleansing Rinsed/ Irrigated with Saline -Foul Odor after Cleansing No -Bioengineered Tissue No -Bleeding Controlled with Pressure -Offloading Yes -Type of Offloading Surgical Shoe -Treatment Response Procedure Tolerated Well -Debridement - Subq, 1st 20sq cm No #37-right 2nd toe -Time 11:20 -Correct Patient Yes -Correct Side, Site, Position Yes -Correct Procedure Yes -Procedure Performed Yes -Type of Procedure Debridement -Clinical Debridement Subcutaneous -Tissue Removed Subcutaneous -Post Debridement (cm) - Length 0.4 -Post Debridement (cm) - Width 0.3 -Post Debridement (cm) - Depth 0.1 -Total Square (Post) (cm) 0.12 -Area of Debridement (cm) - Length 0.4 -Area of Debridement (cm) - Width 0.3 -Total Square (Area) (cm) 0.12 -Tunneling No -Undermining/Tunneling No -Circular Undermining No -Wound/Ulcer Outcome Not Healed -Ulcer Cleansing Rinsed/ Irrigated with Saline -Foul Odor after Cleansing No -Bioengineered Tissue No -Bleeding Controlled with Pressure -Offloading Yes -Type of Offloading Surgical Shoe -Treatment Response Procedure Tolerated Well -Debridement - Subq, 1st 20sq cm No [See Physician Procedure note for Specifics] WC - Nurse 3 - General Ulcer D/C NN Start: 12/21/19 10:52 Freq: Status: Active Protocol: Activity Type Activity Date Activity User E-Sign Co-Sign Detail Recorded Client Recorded Date Recorded By Document 01/11/20 11:33 [id number] 01/11/20 11:38 NORRIS 01/11/20 11:33 Wound Care Nurse 3 [Wound Dressing] 42-right bernstein -Ulcer Cleansing Rinsed/ Irrigated with Saline -Foul Odor after Cleansing No -Primary Dressing Applied NonAdherent Contact Layer -Primary Dressing Covered/Secured Dry Gauze & with Roll Gauze, Secured with Tape 39-right lateral foot -Ulcer Cleansing Rinsed/ Irrigated with Saline -Foul Odor after Cleansing No -Primary Dressing Applied Fibracol Plus 4x4 -Primary Dressing Covered/Secured Dry Gauze & with Roll Gauze, Secured with Tape -Fibracol Plus 4x4 1 #35 L Stump -Ulcer Cleansing Rinsed/ Irrigated with Saline -Foul Odor after Cleansing No -Primary Dressing Applied Fibracol Plus 4x4 -Primary Dressing Covered/Secured Dry Gauze & with Roll Gauze, Secured with Tape -Fibracol Plus 4x4 0 #42- R MEDIAL FOOT -Ulcer Cleansing Rinsed/ Irrigated with Saline -Foul Odor after Cleansing No -Primary Dressing Applied Fibracol Plus 4x4 -Primary Dressing Covered/Secured Dry Gauze & with Roll Gauze, Secured with Tape -Fibracol Plus 4x4 0 #37-right 2nd toe -Ulcer Cleansing Rinsed/ Irrigated with Saline -Foul Odor after Cleansing No -Primary Dressing Applied Fibracol Plus 4x4 -Primary Dressing Covered/Secured Dry Gauze & with Roll Gauze, Secured with Tape -Fibracol Plus 4x4 0 [Compression Applied] Left -Size of Tubigrip Used Size D -Size D ($) 0 Right -Size of Tubigrip Used Size D -Size D ($) 0 Vital Signs [Temperature Protocol: VS] -Temperature (97.8 F-99.1 F) 98.0 F -Temperature Source Temporal [Pulse] -Pulse Rate (60-100) 50 L -Pulse Location Monitor [Respirations] -Respiratory Rate (12-18) 16 -Respiratory rate source Observation [Blood Pressure] -Blood Pressure (90/60-120/80) 133/57 H -Blood Pressure Mean (mm Hg) 82 -Source Monitor -Position Sitting -Blood Pressure Location Right Arm Pain Scale: 0-10 Numeric [Pain] -Is Patient Pain Free? Yes WC - Visit Discharge [Visit Discharge Information] -Discharge Condition Stable -Ambulatory Status Wheelchair -Transportation Private Auto -Medication Reconcilliation completed Yes & provided to patient/care provider -Clinical Summary of Care Provided Yes Musculoskeletal: No Tenderness to Palpation of Joints or Extremities, Muscle Wasting Neurological: - - Lack of epicritic sensation light touch is consistent with neuropathy status Psych/Mental Status: Normal Affect, Appropriate Debridement Note Post-Debridement Measurements/Treatment WC - Nurse 2 - General Ulcer CM Notes Start: 12/21/19 10:52 Freq: Status: Active Protocol: Activity Type Activity Date Activity User E-Sign Co-Sign Detail Recorded Client Recorded Date Recorded By Document 12/21/19 11:43 MW [id number] 12/21/19 11:53 MW Document 12/28/19 14:54 JF [id number] 12/28/19 14:58 JF Document 01/04/20 11:57 JF [id number] 01/04/20 12:02 JF Document 01/11/20 11:18 [id number] 01/11/20 11:26 12/21/19 12/28/19 01/04/20 11:43 14:54 11:57 Wound Center Nurse 2 42-right bernstein -Time -Correct Patient -Correct Side, Site, Position -Correct Procedure -Procedure Performed -Type of Procedure -Clinical Debridement -Tissue Removed -Post Debridement (cm) - Length -Post Debridement (cm) - Width -Post Debridement (cm) - Depth -Total Square (Post) (cm) -Area of Debridement (cm) - Length -Area of Debridement (cm) - Width -Total Square (Area) (cm) -Tunneling -Undermining/Tunneling -Circular Undermining -Wound/Ulcer Outcome -Ulcer Cleansing -Foul Odor after Cleansing -Bioengineered Tissue -Bleeding Controlled with -Offloading -Treatment Response -Debridement - Subq, 1st 20sq cm 41. L stump lateral -Time 11:45 14:55 -Correct Patient Yes Yes No -Correct Side, Site, Position Yes Yes No -Correct Procedure Yes Yes No -Procedure Performed Yes No -Type of Procedure Debridement -Clinical Debridement Subcutaneous Subcutaneous -Tissue Removed Subcutaneous Subcutaneous -Post Debridement (cm) - Length 0.8 0.2 0 -Post Debridement (cm) - Width 2.0 0.1 0 -Post Debridement (cm) - Depth 0.1 0.1 0 -Total Square (Post) (cm) 1.60 0.02 0 -Area of Debridement (cm) - Length 0.8 0.2 0 -Area of Debridement (cm) - Width 2.0 0.1 0 -Total Square (Area) (cm) 1.60 0.02 0 -Tunneling No No -Undermining/Tunneling No No -Circular Undermining No No -Wound/Ulcer Outcome Not Healed Not Healed Healed- Epithelialized -Ulcer Cleansing Rinsed/ Rinsed/ Irrigated with Irrigated with Saline Saline -Foul Odor after Cleansing No No -Bioengineered Tissue No No -Bleeding Controlled with Pressure Pressure -Offloading No No -Treatment Response Procedure Procedure Tolerated Well Tolerated Well -Debridement - Subq, 1st 20sq cm Yes No 39-right lateral foot -Time 11:46 14:55 11:59 -Correct Patient Yes Yes Yes -Correct Side, Site, Position Yes Yes Yes -Correct Procedure Yes Yes Yes -Procedure Performed Yes Yes -Type of Procedure Debridement Debridement Debridement -Clinical Debridement Subcutaneous Subcutaneous Subcutaneous -Tissue Removed Subcutaneous Subcutaneous Subcutaneous -Post Debridement (cm) - Length 3.5 2.5 2.3 -Post Debridement (cm) - Width 2.5 2.3 2.5 -Post Debridement (cm) - Depth 0.1 0.1 0.1 -Total Square (Post) (cm) 8.75 5.75 5.75 -Area of Debridement (cm) - Length 3.5 2.5 2.3 -Area of Debridement (cm) - Width 2.5 2.3 2.5 -Total Square (Area) (cm) 8.75 5.75 5.75 -Tunneling No No No -Undermining/Tunneling No No No -Circular Undermining No No No -Wound/Ulcer Outcome Not Healed Not Healed Not Healed -Ulcer Cleansing Rinsed/ Rinsed/ Rinsed/ Irrigated with Irrigated with Irrigated with Saline Saline Saline -Foul Odor after Cleansing No No No -Bioengineered Tissue No No No -Bleeding Controlled with Pressure Pressure Pressure -Offloading No Yes Yes -Type of Offloading Surgical Shoe Surgical Shoe -Treatment Response Procedure Procedure Procedure Tolerated Well Tolerated Well Tolerated Well -Debridement - Subq, 1st 20sq cm No Yes No -Debridement, SubQ, ea addt'l 20sq cm or part thereof #35 L Stump -Time 11:47 14:56 12:00 -Correct Patient Yes Yes Yes -Correct Side, Site, Position Yes Yes Yes -Correct Procedure Yes Yes Yes -Procedure Performed No Yes Yes -Type of Procedure Debridement Debridement -Clinical Debridement Subcutaneous Subcutaneous -Tissue Removed Subcutaneous Subcutaneous -Post Debridement (cm) - Length 0 0.8 0.7 -Post Debridement (cm) - Width 0 2.0 2.5 -Post Debridement (cm) - Depth 0 0.2 0.2 -Total Square (Post) (cm) 0 1.60 1.75 -Area of Debridement (cm) - Length 0.8 0.7 -Area of Debridement (cm) - Width 2.0 2.5 -Total Square (Area) (cm) 1.60 1.75 -Tunneling No No No -Undermining/Tunneling No No No -Circular Undermining No No No -Wound/Ulcer Outcome Healed- Not Healed Not Healed Epithelialized -Ulcer Cleansing Not Cleansed Rinsed/ Rinsed/ Irrigated with Irrigated with Saline Saline -Foul Odor after Cleansing No No -Bioengineered Tissue No No -Bleeding Controlled with Pressure Pressure Pressure -Offloading No No Yes -Type of Offloading Surgical Shoe -Treatment Response Procedure Procedure Tolerated Well Tolerated Well -Debridement - Subq, 1st 20sq cm No No #42- R MEDIAL FOOT -Time 11:47 14:56 12:01 -Correct Patient Yes Yes Yes -Correct Side, Site, Position Yes Yes Yes -Correct Procedure Yes Yes Yes -Procedure Performed Yes Yes Yes -Type of Procedure Debridement Debridement Debridement -Clinical Debridement Subcutaneous Subcutaneous Subcutaneous -Tissue Removed Subcutaneous Subcutaneous Subcutaneous -Post Debridement (cm) - Length 3.0 1.1 1.0 -Post Debridement (cm) - Width 1.2 2.5 2.5 -Post Debridement (cm) - Depth 0.1 0.2 0.2 -Total Square (Post) (cm) 3.60 2.75 2.50 -Area of Debridement (cm) - Length 3.0 1.1 1.0 -Area of Debridement (cm) - Width 1.2 2.5 2.5 -Total Square (Area) (cm) 3.60 2.75 2.50 -Tunneling No No No -Undermining/Tunneling No No No -Circular Undermining No No No -Wound/Ulcer Outcome Not Healed Not Healed Not Healed -Ulcer Cleansing Rinsed/ Rinsed/ Rinsed/ Irrigated with Irrigated with Irrigated with Saline Saline Saline -Foul Odor after Cleansing No No No -Bioengineered Tissue No No No -Bleeding Controlled with Pressure Pressure Pressure -Offloading No Yes Yes -Type of Offloading Surgical Shoe Surgical Shoe -Treatment Response Procedure Procedure Procedure Tolerated Well Tolerated Well Tolerated Well -Debridement - Subq, 1st 20sq cm No No No #37-right 2nd toe -Time 11:47 14:57 12:01 -Correct Patient Yes Yes Yes -Correct Side, Site, Position Yes Yes Yes -Correct Procedure Yes Yes Yes -Procedure Performed Yes Yes Yes -Type of Procedure Debridement Debridement Debridement -Clinical Debridement Subcutaneous Subcutaneous Subcutaneous -Tissue Removed Subcutaneous Subcutaneous Subcutaneous -Post Debridement (cm) - Length 2.5 2.5 1.1 -Post Debridement (cm) - Width 1.0 2.2 1.1 -Post Debridement (cm) - Depth 0.4 0.3 0.3 -Total Square (Post) (cm) 2.50 5.50 1.21 -Area of Debridement (cm) - Length 2.5 2.5 1.1 -Area of Debridement (cm) - Width 1.0 2.2 1.1 -Total Square (Area) (cm) 2.50 5.50 1.21 -Tunneling No No No -Undermining/Tunneling No No No -Circular Undermining No No No -Wound/Ulcer Outcome Not Healed Not Healed Not Healed -Ulcer Cleansing Rinsed/ Rinsed/ Rinsed/ Irrigated with Irrigated with Irrigated with Saline Saline Saline -Foul Odor after Cleansing No No No -Bioengineered Tissue No No No -Bleeding Controlled with Pressure Pressure Pressure -Offloading No Yes Yes -Type of Offloading Surgical Shoe Surgical Shoe -Treatment Response Procedure Procedure Tolerated Well Tolerated Well -Debridement - Subq, 20sq cm No No Yes Pain Scale: 0-10 Numeric Is Patient Pain Free? Yes Yes Yes 01/11/20 11:18 Wound Center Nurse 2 42-right bernstein -Time 11:25 -Correct Patient Yes -Correct Side, Site, Position Yes -Correct Procedure Yes -Procedure Performed Yes -Type of Procedure Debridement -Clinical Debridement Subcutaneous -Tissue Removed Subcutaneous -Post Debridement (cm) - Length 3.0 -Post Debridement (cm) - Width 4.5 -Post Debridement (cm) - Depth 0.1 -Total Square (Post) (cm) 13.50 -Area of Debridement (cm) - Length 3.0 -Area of Debridement (cm) - Width 4.5 -Total Square (Area) (cm) 13.50 -Tunneling No -Undermining/Tunneling No -Circular Undermining No -Wound/Ulcer Outcome Not Healed -Ulcer Cleansing Rinsed/ Irrigated with Saline -Foul Odor after Cleansing No -Bioengineered Tissue No -Bleeding Controlled with Pressure -Offloading No -Treatment Response Procedure Tolerated Well -Debridement - Subq, 20sq cm No 41. L stump lateral -Time -Correct Patient -Correct Side, Site, Position -Correct Procedure -Procedure Performed -Type of Procedure -Clinical Debridement -Tissue Removed -Post Debridement (cm) - Length -Post Debridement (cm) - Width -Post Debridement (cm) - Depth -Total Square (Post) (cm) -Area of Debridement (cm) - Length -Area of Debridement (cm) - Width -Total Square (Area) (cm) -Tunneling -Undermining/Tunneling -Circular Undermining -Wound/Ulcer Outcome -Ulcer Cleansing -Foul Odor after Cleansing -Bioengineered Tissue -Bleeding Controlled with -Offloading -Treatment Response -Debridement - Subq, 20sq cm 39-right lateral foot -Time 11:18 -Correct Patient Yes -Correct Side, Site, Position Yes -Correct Procedure Yes -Procedure Performed Yes -Type of Procedure Debridement -Clinical Debridement Subcutaneous -Tissue Removed Subcutaneous -Post Debridement (cm) - Length 2.2 -Post Debridement (cm) - Width 1.6 -Post Debridement (cm) - Depth 0.1 -Total Square (Post) (cm) 3.52 -Area of Debridement (cm) - Length 2.2 -Area of Debridement (cm) - Width 1.6 -Total Square (Area) (cm) 3.52 -Tunneling No -Undermining/Tunneling No -Circular Undermining No -Wound/Ulcer Outcome Not Healed -Ulcer Cleansing Rinsed/ Irrigated with Saline -Foul Odor after Cleansing No -Bioengineered Tissue No -Bleeding Controlled with Pressure -Offloading Yes -Type of Offloading Surgical Shoe -Treatment Response Procedure Tolerated Well -Debridement - Subq, 1st 20sq cm Yes -Debridement, SubQ, ea addt'l 20sq cm 1 or part thereof #35 L Stump -Time 11:19 -Correct Patient Yes -Correct Side, Site, Position Yes -Correct Procedure Yes -Procedure Performed Yes -Type of Procedure Debridement -Clinical Debridement Subcutaneous -Tissue Removed Subcutaneous -Post Debridement (cm) - Length 1.1 -Post Debridement (cm) - Width 2.5 -Post Debridement (cm) - Depth 0.2 -Total Square (Post) (cm) 2.75 -Area of Debridement (cm) - Length 1.1 -Area of Debridement (cm) - Width 2.5 -Total Square (Area) (cm) 2.75 -Tunneling No -Undermining/Tunneling No -Circular Undermining No -Wound/Ulcer Outcome Not Healed -Ulcer Cleansing Rinsed/ Irrigated with Saline -Foul Odor after Cleansing No -Bioengineered Tissue No -Bleeding Controlled with Pressure -Offloading No -Type of Offloading -Treatment Response Procedure Tolerated Well -Debridement - Subq, 1st 20sq cm No #42- R MEDIAL FOOT -Time 11:19 -Correct Patient Yes -Correct Side, Site, Position Yes -Correct Procedure Yes -Procedure Performed Yes -Type of Procedure Debridement -Clinical Debridement Subcutaneous -Tissue Removed Subcutaneous -Post Debridement (cm) - Length 2.5 -Post Debridement (cm) - Width 0.8 -Post Debridement (cm) - Depth 0.1 -Total Square (Post) (cm) 2.00 -Area of Debridement (cm) - Length 2.5 -Area of Debridement (cm) - Width 0.8 -Total Square (Area) (cm) 2.00 -Tunneling No -Undermining/Tunneling No -Circular Undermining No -Wound/Ulcer Outcome Not Healed -Ulcer Cleansing Rinsed/ Irrigated with Saline -Foul Odor after Cleansing No -Bioengineered Tissue No -Bleeding Controlled with Pressure -Offloading Yes -Type of Offloading Surgical Shoe -Treatment Response Procedure Tolerated Well -Debridement - Subq, 1st 20sq cm No #37-right 2nd toe -Time 11:20 -Correct Patient Yes -Correct Side, Site, Position Yes -Correct Procedure Yes -Procedure Performed Yes -Type of Procedure Debridement -Clinical Debridement Subcutaneous -Tissue Removed Subcutaneous -Post Debridement (cm) - Length 0.4 -Post Debridement (cm) - Width 0.3 -Post Debridement (cm) - Depth 0.1 -Total Square (Post) (cm) 0.12 -Area of Debridement (cm) - Length 0.4 -Area of Debridement (cm) - Width 0.3 -Total Square (Area) (cm) 0.12 -Tunneling No -Undermining/Tunneling No -Circular Undermining No -Wound/Ulcer Outcome Not Healed -Ulcer Cleansing Rinsed/ Irrigated with Saline -Foul Odor after Cleansing No -Bioengineered Tissue No -Bleeding Controlled with Pressure -Offloading Yes -Type of Offloading Surgical Shoe -Treatment Response Procedure Tolerated Well -Debridement - Subq, 1st 20sq cm No Pain Scale: 0-10 Numeric Is Patient Pain Free? WC - Nurse 3 - General Ulcer D/C NN Start: 12/21/19 10:52 Freq: Status: Active Protocol: Activity Type Activity Date Activity User E-Sign Co-Sign Detail Recorded Client Recorded Date Recorded By Document 12/21/19 12:16 DL [id number] 12/21/19 12:22 DL Document 12/28/19 13:48 JF [id number] 12/28/19 13:50 Document 01/04/20 12:07 [id number] 01/04/20 12:09 Document 01/04/20 12:20 [facility] [id number] 01/04/20 12:21 [facility] Document 01/11/20 11:33 JF [id number] 01/11/20 11:38 12/21/19 12/28/19 01/04/20 12:16 13:48 12:07 Wound Care Nurse 3 42-right bernstein -Ulcer Cleansing -Foul Odor after Cleansing -Primary Dressing Applied -Primary Dressing Covered/Secured with 41. L stump lateral -Ulcer Cleansing Wound Cleanser Rinsed/ Irrigated with Saline -Foul Odor after Cleansing No -Primary Dressing Applied Fibracol Plus Fibracol Plus 4x4 4x4 -Primary Dressing Covered/Secured with Dry Gauze & Dry Gauze Roll Gauze, Secured with Tape -Fibracol Plus 4x4 1 1 39-right lateral foot -Ulcer Cleansing Wound Cleanser Rinsed/ Rinsed/ Irrigated with Irrigated with Saline Saline -Foul Odor after Cleansing No No No -Primary Dressing Applied Fibracol Plus Fibracol Plus 4x4 4x4 -Other Dressing fibricol -Primary Dressing Covered/Secured with Dry Gauze & Dry Gauze & Dry Gauze & Roll Gauze, Roll Gauze, Roll Gauze, Secured with Secured with Secured with Tape Tape Tape -Fibracol Plus 4x4 0 1 #35 L Stump -Ulcer Cleansing Rinsed/ Rinsed/ Irrigated with Irrigated with Saline Saline -Foul Odor after Cleansing No No -Primary Dressing Applied Fibracol Plus Fibracol Plus 4x4 4x4 -Primary Dressing Covered/Secured with Dry Gauze & Dry Gauze & Roll Gauze, Roll Gauze, Secured with Secured with Tape Tape -Fibracol Plus 4x4 0 0 #42- R MEDIAL FOOT -Ulcer Cleansing Wound Cleanser Rinsed/ Rinsed/ Irrigated with Irrigated with Saline Saline -Foul Odor after Cleansing No No No -Primary Dressing Applied Fibracol Plus Fibracol Plus 4x4 4x4 -Other Dressing fibricol -Primary Dressing Covered/Secured with Dry Gauze,Dry Dry Gauze & Dry Gauze & Gauze & Roll Roll Gauze, Roll Gauze, Gauze,Secured Secured with Secured with with Tape Tape Tape -Fibracol Plus 4x4 0 0 #37-right 2nd toe -Ulcer Cleansing Wound Cleanser Rinsed/ Rinsed/ Irrigated with Irrigated with Saline Saline -Foul Odor after Cleansing No No -Primary Dressing Applied Fibracol Plus 4x4 -Other Dressing fibricol -Primary Dressing Covered/Secured with Dry Gauze & Dry Gauze & Dry Gauze & Roll Gauze, Roll Gauze Roll Gauze, Other Secured with Tape -Other Covering gauze -Fibracol Plus 4x4 1 0 0 Left -Size of Tubigrip Used -Size D ($) -Other Right -Size of Tubigrip Used -Size D ($) -Other farrow wrap Treatment Response Procedure Tolerated Well Temperature (97.8 F-99.1 F) 98.0 F Temperature Source Temporal Vital Signs Pulse Rate (60-100) 55 L 59 L 53 L Pulse Location Monitor Monitor Monitor Respiratory Rate (12-18) 16 18 Respiratory rate source Observation Observation Oxygen Delivery Method Blood Pressure (90/60-120/80) 159/68 H 153/90 H 151/59 H Blood Pressure Mean (mm Hg) 98 111 89 Source Monitor Monitor Monitor Position Semi-Fowlers Semi-Fowlers Blood Pressure Location Left Arm Right Arm Pain Scale: 0-10 Numeric Is Patient Pain Free? Yes Yes Yes WC - Visit Discharge Discharge Condition Stable Stable Stable Ambulatory Status Wheelchair Wheelchair Wheelchair Transportation Private Auto Private Auto Medication Reconcilliation completed & Yes Yes provided to patient/care provider Clinical Summary of Care Provided Yes Yes Facility Type 01/04/20 01/11/20 12:20 11:33 Wound Care Nurse 3 42-right bernstein -Ulcer Cleansing Rinsed/ Irrigated with Saline -Foul Odor after Cleansing No -Primary Dressing Applied NonAdherent Contact Layer -Primary Dressing Covered/Secured with Dry Gauze & Roll Gauze, Secured with Tape 41. L stump lateral -Ulcer Cleansing -Foul Odor after Cleansing -Primary Dressing Applied -Primary Dressing Covered/Secured with -Fibracol Plus 4x4 39-right lateral foot -Ulcer Cleansing Rinsed/ Rinsed/ Irrigated with Irrigated with Saline Saline -Foul Odor after Cleansing No No -Primary Dressing Applied Fibracol Plus Fibracol Plus 4x4 4x4 -Other Dressing -Primary Dressing Covered/Secured with Dry Gauze & Dry Gauze & Roll Gauze, Roll Gauze, Secured with Secured with Tape Tape -Fibracol Plus 4x4 1 1 #35 L Stump -Ulcer Cleansing Rinsed/ Rinsed/ Irrigated with Irrigated with Saline Saline -Foul Odor after Cleansing No No -Primary Dressing Applied Fibracol Plus Fibracol Plus 4x4 4x4 -Primary Dressing Covered/Secured with Dry Gauze & Dry Gauze & Roll Gauze, Roll Gauze, Secured with Secured with Tape Tape -Fibracol Plus 4x4 0 0 #42- R MEDIAL FOOT -Ulcer Cleansing Rinsed/ Rinsed/ Irrigated with Irrigated with Saline Saline -Foul Odor after Cleansing No No -Primary Dressing Applied Fibracol Plus Fibracol Plus 4x4 4x4 -Other Dressing -Primary Dressing Covered/Secured with Dry Gauze & Dry Gauze & Roll Gauze, Roll Gauze, Secured with Secured with Tape Tape -Fibracol Plus 4x4 0 0 #37-right 2nd toe -Ulcer Cleansing Rinsed/ Rinsed/ Irrigated with Irrigated with Saline Saline -Foul Odor after Cleansing No No -Primary Dressing Applied Fibracol Plus Fibracol Plus 4x4 4x4 -Other Dressing -Primary Dressing Covered/Secured with Dry Gauze & Dry Gauze & Roll Gauze, Roll Gauze, Secured with Secured with Tape Tape -Other Covering -Fibracol Plus 4x4 0 0 Left -Size of Tubigrip Used Size D -Size D ($) 0 -Other applied pts own tubi Right -Size of Tubigrip Used Size D -Size D ($) 0 -Other appied pts own tubi, and compression wrap Treatment Response Procedure Tolerated Well Temperature (97.8 F-99.1 F) 98.0 F Temperature Source Temporal Vital Signs Pulse Rate (60-100) 82 50 L Pulse Location Monitor Monitor Respiratory Rate (12-18) 16 16 Respiratory rate source Observation Observation Oxygen Delivery Method Room Air Blood Pressure (90/60-120/80) 123/75 H 133/57 H Blood Pressure Mean (mm Hg) 91 82 Source Monitor Monitor Position Sitting Sitting Blood Pressure Location Right Arm Right Arm Pain Scale: 0-10 Numeric Is Patient Pain Free? Yes Yes WC - Visit Discharge Discharge Condition Stable Stable Ambulatory Status Wheelchair Wheelchair Transportation Private Auto Medication Reconcilliation completed & Yes provided to patient/care provider Clinical Summary of Care Provided Yes Facility Type Home Health Wound debrided: lateral foot, dorsal 2nd toe, anterior proximal leg, medial foot Laterality: Right Wound Grade/Stage: grade 1 Type of Debridement: Excisional debridement Anesthesia Used: 5% Lidocaine Gel Depth: in the subcutaneous layer Percentage of wound debrided: 100 Instrument Used: #15 blade Tissue Removed: fibrous, devitalized subcutaneous, biofilm, slough Severity: Fat Layer Exposed Amount of bleeding with debridement: Mild Bleeding Controlled with: Pressure Patient tolerated procedure well - Additional Wound Wound debrided: central BKA stump site (prior surgery) Laterality: Left Wound Grade/Stage: grade 1 Type of Debridement: Excisional debridement Anesthesia Used: 5% Lidocaine Gel Depth: in the subcutaneous layer Percentage of wound debrided: 100 Instrument Used: #15 blade Tissue Removed: fibrous, devitalized subcutaneous, biofilm, slough Severity: Fat Layer Exposed Amount of bleeding with debridement: Mild Bleeding Controlled with: Pressure Patient tolerated procedure: Patient tolerated procedure well Assessment/Plan Active Problems Nonhealing amputation stump (Chronic) Venous insufficiency (Chronic) Walking difficulty due to ankle and foot (Chronic) Ulcer of left lower extremity with fat layer exposed (Chronic) Ulcer of right foot with fat layer exposed (Chronic) Diabetes mellitus with polyneuropathy (Chronic) Assessment: Open surgical wound anterior aspect left BKA stump. Peripheral vascular disease. Diabetes with neuropathy. Right second toe ulcer, jerez grade 1, no infection. Right plantar lateral forefoot ulcer, jerez grade 1, no infection. Right planatar medial forefoot ulcer, jerez grade 1, no infection. New right leg ulcer, jerez grade 1, no infection Plan: I reviewed and discussed his case. For the anterior aspect left BKA stump, will continue Fibracol dressing changes daily. His ulcers to his right foot are noted. All bilateral lower extremity ulcer sites were debrided as noted in the clinical panel. To wash daily with soap and water. To change dressing with Aquacel Ag on the right foot also. His new ulcer on his right leg was also debrided he was advised to change dressing daily with Adaptic which he already has at home. To keep pressure off of the ulcer sites and a surgical shoe with heel weightbearing. To ambulate with his potential surgical shoe in place if able to. To continue work with home physical therapy. To continue to optimize healing with improved glycemic index, continued weight reduction, and well-balanced [employer] nutrients. He was reassured no local signs of infection are noted today. Check feet daily monitor for this. His recent hospital admission as noted and I reviewed his medical records that he brought with him today. His white blood cell count was 7.62 during his recent hospital admission before discharge. His hemoglobin A1c was 7.3%. To continue with edema management including his compression wraps and also lymphedema pumps. He admits he has gotten away from using the pumps after his last MRSA infection. He plans to thoroughly clean the devices prior to resuming use which is encouraged. He has resolution of local and systemic signs of illness and I do not recommend additional antibiotics at this time. To return to clinic in 1 to 2 weeks or call sooner if you have any questions or concerns.
== END 2020-01-14 23:59 ==
LOC: WC 11:00
PROVIDERS: PCP Family Medicine; Visit Provider Surgery
DX: E11.621 Type 2 diabetes mellitus with foot ulcer (principal); E11.628 Type 2 diabetes mellitus with other skin complications; L08.9 Local infection of the skin and subcutaneous tissue, unspecified; L97.522 Non-pressure chronic ulcer of other part of left foot with fat layer exposed; R53.81 Other malaise; E11.42 Type 2 diabetes mellitus with diabetic polyneuropathy; E11.51 Type 2 diabetes mellitus with diabetic peripheral angiopathy without gangrene; L97.922 Non-pressure chronic ulcer of unspecified part of left lower leg with fat layer exposed; L97.912 Non-pressure chronic ulcer of unspecified part of right lower leg with fat layer exposed; L97.512 Non-pressure chronic ulcer of other part of right foot with fat layer exposed; Z89.512 Acquired absence of left leg below knee; T87.89 Other complications of amputation stump; I87.2 Venous insufficiency (chronic) (peripheral); R26.2 Difficulty in walking, not elsewhere classified; L97.412 Non-pressure chronic ulcer of right heel and midfoot with fat layer exposed
CPT/HCPCS: 11042; 11045

== ENCOUNTER 2020-02-08 11:00 | Outpatient (RCR) | payer MEDICARE, MEDICAID, SELFPAY ==
[2020-01-15 00:12] VITALS: BP 133/57; PULSE 50; RESP 16; TEMP 36.7
[2020-01-25 11:27] VITALS: BP 187/41; PULSE 54; RESP 18; TEMP 36.3; BMI 47.9
--- NOTE | 2020-01-25 22:47 | PCM.WC.PN ---
(1) Diabetes mellitus with polyneuropathy Status: Chronic Qualifiers: Code(s): E11.42 - Type 2 diabetes mellitus with diabetic polyneuropathy (2) Ulcer of left lower extremity with fat layer exposed Status: Chronic Code(s): L97.922 - Non-pressure chronic ulcer of unspecified part of left lower leg with fat layer exposed (3) Ulcer of right foot with fat layer exposed Status: Chronic Code(s): L97.512 - Non-pressure chronic ulcer of other part of right foot with fat layer exposed (4) Venous insufficiency Status: Chronic Code(s): I87.2 - Venous insufficiency (chronic) (peripheral) (5) Cellulitis of right foot Status: Resolved Code(s): L03.115 - Cellulitis of right lower limb Type of Wound Date of Service: 01/25/20 Chief Complaint: Open surgical wound anterior aspect left BKA stump. Right second toe ulcer. 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 He has been managed by his surgeon. He also has multiple right foot ulcers, and has been performing dressing changes as advised. He denies fever, chills, nausea, vomiting. He denies redness or odor. He has been trying to offload and keep his swelling reduced by wearing Tubigrip compression dressings. He had an infection develop last week in which he presented to a nonlocal emergency room. X-rays were negative and he did not demonstrate leukocytosis. A wound culture was obtained and he was sent home on oral Cleocin. Progress of Wound: Left below-knee amputation with ulcers stable. Cellulitis resolving right foot - Physical Exam Vital Signs Temp Pulse Resp BP 97.4 F L 54 L 18 187/41 H 01/25/20 11:27 01/25/20 11:27 01/25/20 11:27 01/25/20 11:27 General: Alert, Oriented x3, Cooperative, No apparent distress HEENT: Atraumatic Extremities: No cyanosis, No edema, No Calf Tenderness, Diminished Peripheral Pulses, Edema, - - Left below-knee amputation Skin: Ulcer/ Wound - No purulence, erythema, string, odor, infection bilateral lower extremities. The ulcers have granular base. There is resolved maceration erythema streaking necrosis to the right second toe. His skin is atrophic and hairless Wound Measurements and Assessment WC - Nurse 1 - General Ulcer Measurement Start: 01/25/20 11:27 Freq: Status: Active Protocol: Activity Type Activity Date Activity User E-Sign Co-Sign Detail Recorded Client Recorded Date Recorded By Document 01/25/20 11:27 RB [id number] 01/25/20 11:47 RB 01/25/20 11:27 Wound Center Nurse 1 [Ulcer Assessment] 42-right bernstein -Combined with other wound No -Current Size (cm) - Length 0.1 -Current Size (cm) - Width 0.1 -Current Size (cm) - Depth 0.1 -Total Square Cm 0.01 -Tunneling No -Undermining/Tunneling No -Circular Undermining No -Exudate Amt Medium -Exudate Type Serosanguineous -Wound Margin Flat & Intact -Granulation Amt Medium (34-66%) -Granulation Quality [place] -Slough/Fibrin Yes -Necrosis Amt Small (1-33%) -Necrotic Tissue Type Adherent Slough -Structure Exposed N/A -Texture (Susy-wound Skin Appearance) Assessed -Moisture (Susy-wound Skin Appearance Assessed ) -Color (Susy-wound Skin Appearance) Assessed -Temperature (Susy-wound Skin No Abnormality Appearance) (Pt Warm) -Tenderness on Palpation (Susy-wound No Skin Appearance) -Ulcer Cleansing Wound Cleanser -Foul Odor after Cleansing No -Anesthetic Used 4% Lidocaine Solution 39-right lateral foot -Combined with other wound No -Current Size (cm) - Length 2 -Current Size (cm) - Width 1.6 -Current Size (cm) - Depth 0.2 -Total Square Cm 3.2 -Tunneling No -Undermining/Tunneling No -Circular Undermining No -Exudate Amt Medium -Exudate Type Serosanguineous -Granulation Amt Medium (34-66%) -Granulation Quality [place] -Slough/Fibrin Yes -Necrosis Amt Small (1-33%) -Necrotic Tissue Type Adherent Slough -Structure Exposed N/A -Texture (Susy-wound Skin Appearance) Assessed -Moisture (Susy-wound Skin Appearance Assessed,Dry/ ) Scaly -Color (Susy-wound Skin Appearance) Assessed -Temperature (Susy-wound Skin No Abnormality Appearance) (Pt Warm) -Tenderness on Palpation (Susy-wound No Skin Appearance) -Ulcer Cleansing Wound Cleanser -Foul Odor after Cleansing No -Anesthetic Used 4% Lidocaine Solution #35 L Stump -Combined with other wound No -Current Size (cm) - Length 1.5 -Current Size (cm) - Width 0.7 -Current Size (cm) - Depth 0.2 -Total Square Cm 1.05 -Tunneling No -Undermining/Tunneling No -Circular Undermining No -Exudate Amt Medium -Exudate Type Serosanguineous -Wound Margin Flat & Intact -Granulation Amt Medium (34-66%) -Granulation Quality [place] -Slough/Fibrin Yes -Necrosis Amt Small (1-33%) -Necrotic Tissue Type Adherent Slough -Structure Exposed N/A -Texture (Susy-wound Skin Appearance) Assessed -Moisture (Susy-wound Skin Appearance Assessed,Dry/ ) Scaly -Color (Susy-wound Skin Appearance) Assessed -Temperature (Susy-wound Skin No Abnormality Appearance) (Pt Warm) -Tenderness on Palpation (Susy-wound No Skin Appearance) -Ulcer Cleansing Wound Cleanser -Foul Odor after Cleansing No -Anesthetic Used 4% Lidocaine Solution #42- R MEDIAL FOOT -Combined with other wound No -Current Size (cm) - Length 2.3 -Current Size (cm) - Width 1.7 -Current Size (cm) - Depth 0.2 -Total Square Cm 3.91 -Tunneling No -Undermining/Tunneling No -Circular Undermining No -Exudate Amt Medium -Exudate Type Serosanguineous -Wound Margin Flat & Intact -Granulation Amt Medium (34-66%) -Granulation Quality [place] -Slough/Fibrin Yes -Necrosis Amt Small (1-33%) -Necrotic Tissue Type Adherent Slough -Structure Exposed N/A -Texture (Susy-wound Skin Appearance) Assessed -Moisture (Susy-wound Skin Appearance Assessed,Dry/ ) Scaly -Color (Susy-wound Skin Appearance) Assessed -Temperature (Susy-wound Skin No Abnormality Appearance) (Pt Warm) -Tenderness on Palpation (Susy-wound No Skin Appearance) -Ulcer Cleansing Wound Cleanser -Foul Odor after Cleansing No -Anesthetic Used 4% Lidocaine Solution #37-right 2nd toe -Combined with other wound No -Current Size (cm) - Length 0.8 -Current Size (cm) - Width 1 -Current Size (cm) - Depth 0.1 -Total Square Cm 0.8 -Tunneling No -Undermining/Tunneling No -Circular Undermining No -Exudate Amt Small -Exudate Type Serosanguineous -Wound Margin Flat & Intact -Granulation Amt Medium (34-66%) -Granulation Quality [place] -Slough/Fibrin Yes -Necrosis Amt Small (1-33%) -Necrotic Tissue Type Adherent Slough -Structure Exposed N/A -Texture (Susy-wound Skin Appearance) Assessed -Moisture (Susy-wound Skin Appearance Assessed,Dry/ ) Scaly -Color (Susy-wound Skin Appearance) Assessed -Temperature (Susy-wound Skin No Abnormality Appearance) (Pt Warm) -Tenderness on Palpation (Susy-wound No Skin Appearance) -Ulcer Cleansing Wound Cleanser -Foul Odor after Cleansing No -Anesthetic Used 4% Lidocaine Solution [Edema Assessment] -Lower Limb Edema Present Yes -Left Calf (cm) 43.5 -Left Ankle (cm) 29 WC - Nurse 2 - General Ulcer CM Notes Start: 01/25/20 11:27 Freq: Status: Active Protocol: Activity Type Activity Date Activity User E-Sign Co-Sign Detail Recorded Client Recorded Date Recorded By Document 01/25/20 11:56 [id number] 01/25/20 12:02 NORRIS 01/25/20 11:56 Wound Center Nurse 2 [Procedure/Treatment] 42-right bernstein -Time 11:56 -Correct Patient Yes -Correct Side, Site, Position Yes -Correct Procedure Yes -Procedure Performed Yes -Type of Procedure Debridement -Clinical Debridement Subcutaneous -Tissue Removed Subcutaneous -Post Debridement (cm) - Length 0.1 -Post Debridement (cm) - Width 0.1 -Post Debridement (cm) - Depth 0.1 -Total Square (Post) (cm) 0.01 -Area of Debridement (cm) - Length 0.1 -Area of Debridement (cm) - Width 0.1 -Total Square (Area) (cm) 0.01 -Tunneling No -Undermining/Tunneling No -Circular Undermining No -Wound/Ulcer Outcome Not Healed -Ulcer Cleansing Rinsed/ Irrigated with Saline -Foul Odor after Cleansing No -Bioengineered Tissue No -Bleeding Controlled with Pressure -Offloading No -Treatment Response Procedure Tolerated Well -Debridement - Subq, 1st 20sq cm No 39-right lateral foot -Time 11:56 -Correct Patient Yes -Correct Side, Site, Position Yes -Correct Procedure Yes -Procedure Performed Yes -Type of Procedure Debridement -Clinical Debridement Subcutaneous -Tissue Removed Subcutaneous -Post Debridement (cm) - Length 1.7 -Post Debridement (cm) - Width 1.9 -Post Debridement (cm) - Depth 0.2 -Total Square (Post) (cm) 3.23 -Area of Debridement (cm) - Length 1.7 -Area of Debridement (cm) - Width 1.9 -Total Square (Area) (cm) 3.23 -Tunneling No -Undermining/Tunneling No -Circular Undermining No -Wound/Ulcer Outcome Not Healed -Ulcer Cleansing Rinsed/ Irrigated with Saline -Foul Odor after Cleansing No -Bioengineered Tissue No -Bleeding Controlled with Pressure -Offloading No -Treatment Response Procedure Tolerated Well -Debridement - Subq, 1st 20sq cm No #35 L Stump -Time 11:57 -Correct Patient Yes -Correct Side, Site, Position Yes -Correct Procedure Yes -Procedure Performed Yes -Type of Procedure Debridement -Clinical Debridement Subcutaneous -Tissue Removed Subcutaneous -Post Debridement (cm) - Length 0.8 -Post Debridement (cm) - Width 2.0 -Post Debridement (cm) - Depth 0.2 -Total Square (Post) (cm) 1.60 -Area of Debridement (cm) - Length 0.8 -Area of Debridement (cm) - Width 2.0 -Total Square (Area) (cm) 1.60 -Tunneling No -Undermining/Tunneling No -Circular Undermining No -Wound/Ulcer Outcome Not Healed -Ulcer Cleansing Rinsed/ Irrigated with Saline -Foul Odor after Cleansing No -Bioengineered Tissue No -Bleeding Controlled with Pressure -Offloading No -Treatment Response Procedure Tolerated Well -Debridement - Subq, 1st 20sq cm No #42- R MEDIAL FOOT -Time 11:57 -Correct Patient Yes -Correct Side, Site, Position Yes -Correct Procedure Yes -Procedure Performed Yes -Type of Procedure Debridement -Clinical Debridement Subcutaneous -Tissue Removed Subcutaneous -Post Debridement (cm) - Length 1.3 -Post Debridement (cm) - Width 2.7 -Post Debridement (cm) - Depth 0.2 -Total Square (Post) (cm) 3.51 -Area of Debridement (cm) - Length 1.3 -Area of Debridement (cm) - Width 2.7 -Total Square (Area) (cm) 3.51 -Tunneling No -Undermining/Tunneling No -Circular Undermining No -Wound/Ulcer Outcome Not Healed -Ulcer Cleansing Rinsed/ Irrigated with Saline -Foul Odor after Cleansing No -Bioengineered Tissue No -Bleeding Controlled with Pressure -Offloading Yes -Type of Offloading Surgical Shoe -Treatment Response Procedure Tolerated Well -Debridement - Subq, 1st 20sq cm No #37-right 2nd toe -Time 11:58 -Correct Patient Yes -Correct Side, Site, Position Yes -Correct Procedure Yes -Procedure Performed Yes -Type of Procedure Debridement -Clinical Debridement Subcutaneous -Tissue Removed Subcutaneous -Post Debridement (cm) - Length 4.2 -Post Debridement (cm) - Width 1.2 -Post Debridement (cm) - Depth 0.2 -Total Square (Post) (cm) 5.04 -Area of Debridement (cm) - Length 4.2 -Area of Debridement (cm) - Width 1.2 -Total Square (Area) (cm) 5.04 -Tunneling No -Undermining/Tunneling No -Circular Undermining No -Wound/Ulcer Outcome Not Healed -Ulcer Cleansing Rinsed/ Irrigated with Saline -Foul Odor after Cleansing No -Bioengineered Tissue No -Bleeding Controlled with Pressure -Offloading Yes -Type of Offloading Surgical Shoe -Treatment Response Procedure Tolerated Well -Debridement - Subq, 1st 20sq cm Yes [See Physician Procedure note for Specifics] Pain Scale: 0-10 Numeric [Pain] -Is Patient Pain Free? Yes WC - Nurse 3 - General Ulcer D/C NN Start: 01/25/20 11:27 Freq: Status: Active Protocol: Activity Type Activity Date Activity User E-Sign Co-Sign Detail Recorded Client Recorded Date Recorded By Document 01/25/20 12:06 NORRIS [id number] 01/25/20 12:09 NORRIS 01/25/20 12:06 Wound Care Nurse 3 [Wound Dressing] 42-right bernstein -Ulcer Cleansing Rinsed/ Irrigated with Saline -Foul Odor after Cleansing No -Primary Dressing Applied Fibracol Plus 4x4 -Primary Dressing Covered/Secured Dry Gauze & with Roll Gauze, Secured with Tape -Fibracol Plus 4x4 0 39-right lateral foot -Ulcer Cleansing Rinsed/ Irrigated with Saline -Foul Odor after Cleansing No -Primary Dressing Applied Fibracol Plus 4x4 -Primary Dressing Covered/Secured Dry Gauze & with Roll Gauze, Secured with Tape -Fibracol Plus 4x4 0 #35 L Stump -Ulcer Cleansing Rinsed/ Irrigated with Saline -Foul Odor after Cleansing No -Primary Dressing Applied Fibracol Plus 4x4 -Primary Dressing Covered/Secured Dry Gauze & with Roll Gauze, Secured with Tape -Fibracol Plus 4x4 0 #42- R MEDIAL FOOT -Ulcer Cleansing Rinsed/ Irrigated with Saline -Foul Odor after Cleansing No -Primary Dressing Applied Fibracol Plus 4x4 -Primary Dressing Covered/Secured Dry Gauze & with Roll Gauze, Secured with Tape -Fibracol Plus 4x4 0 #37-right 2nd toe -Ulcer Cleansing Rinsed/ Irrigated with Saline -Foul Odor after Cleansing No -Primary Dressing Applied Fibracol Plus 4x4 -Primary Dressing Covered/Secured Dry Gauze & with Roll Gauze, Secured with Tape -Fibracol Plus 4x4 1 [Compression Applied] Right -Other personal tubigrip used. Left -Other personal tubigrip used Pain Scale: 0-10 Numeric [Pain] -Is Patient Pain Free? Yes WC - Visit Discharge [Visit Discharge Information] -Discharge Condition Stable -Ambulatory Status Wheelchair -Transportation Private Auto -Medication Reconcilliation completed Yes & provided to patient/care provider -Clinical Summary of Care Provided Yes -Notes: orders faxed to [facility] Musculoskeletal: No Tenderness to Palpation of Joints or Extremities, Muscle Wasting, - - Dorsal contracture of lesser toes right Neurological: - - Lack of normal epicritic sensation light touch is consistent with neuropathy status Psych/Mental Status: Normal Affect, Appropriate Debridement Note Post-Debridement Measurements/Treatment - Nurse 2 - General Ulcer CM Notes Start: 01/25/20 11:27 Freq: Status: Active Protocol: Activity Type Activity Date Activity User E-Sign Co-Sign Detail Recorded Client Recorded Date Recorded By Document 01/25/20 11:56 NORRIS [id number] 01/25/20 12:02 NORRIS 01/25/20 11:56 Wound Center Nurse 2 42-right bernstein -Time 11:56 -Correct Patient Yes -Correct Side, Site, Position Yes -Correct Procedure Yes -Procedure Performed Yes -Type of Procedure Debridement -Clinical Debridement Subcutaneous -Tissue Removed Subcutaneous -Post Debridement (cm) - Length 0.1 -Post Debridement (cm) - Width 0.1 -Post Debridement (cm) - Depth 0.1 -Total Square (Post) (cm) 0.01 -Area of Debridement (cm) - Length 0.1 -Area of Debridement (cm) - Width 0.1 -Total Square (Area) (cm) 0.01 -Tunneling No -Undermining/Tunneling No -Circular Undermining No -Wound/Ulcer Outcome Not Healed -Ulcer Cleansing Rinsed/ Irrigated with Saline -Foul Odor after Cleansing No -Bioengineered Tissue No -Bleeding Controlled with Pressure -Offloading No -Treatment Response Procedure Tolerated Well -Debridement - Subq, 1st 20sq cm No 39-right lateral foot -Time 11:56 -Correct Patient Yes -Correct Side, Site, Position Yes -Correct Procedure Yes -Procedure Performed Yes -Type of Procedure Debridement -Clinical Debridement Subcutaneous -Tissue Removed Subcutaneous -Post Debridement (cm) - Length 1.7 -Post Debridement (cm) - Width 1.9 -Post Debridement (cm) - Depth 0.2 -Total Square (Post) (cm) 3.23 -Area of Debridement (cm) - Length 1.7 -Area of Debridement (cm) - Width 1.9 -Total Square (Area) (cm) 3.23 -Tunneling No -Undermining/Tunneling No -Circular Undermining No -Wound/Ulcer Outcome Not Healed -Ulcer Cleansing Rinsed/ Irrigated with Saline -Foul Odor after Cleansing No -Bioengineered Tissue No -Bleeding Controlled with Pressure -Offloading No -Treatment Response Procedure Tolerated Well -Debridement - Subq, 1st 20sq cm No #35 L Stump -Time 11:57 -Correct Patient Yes -Correct Side, Site, Position Yes -Correct Procedure Yes -Procedure Performed Yes -Type of Procedure Debridement -Clinical Debridement Subcutaneous -Tissue Removed Subcutaneous -Post Debridement (cm) - Length 0.8 -Post Debridement (cm) - Width 2.0 -Post Debridement (cm) - Depth 0.2 -Total Square (Post) (cm) 1.60 -Area of Debridement (cm) - Length 0.8 -Area of Debridement (cm) - Width 2.0 -Total Square (Area) (cm) 1.60 -Tunneling No -Undermining/Tunneling No -Circular Undermining No -Wound/Ulcer Outcome Not Healed -Ulcer Cleansing Rinsed/ Irrigated with Saline -Foul Odor after Cleansing No -Bioengineered Tissue No -Bleeding Controlled with Pressure -Offloading No -Treatment Response Procedure Tolerated Well -Debridement - Subq, 1st 20sq cm No #42- R MEDIAL FOOT -Time 11:57 -Correct Patient Yes -Correct Side, Site, Position Yes -Correct Procedure Yes -Procedure Performed Yes -Type of Procedure Debridement -Clinical Debridement Subcutaneous -Tissue Removed Subcutaneous -Post Debridement (cm) - Length 1.3 -Post Debridement (cm) - Width 2.7 -Post Debridement (cm) - Depth 0.2 -Total Square (Post) (cm) 3.51 -Area of Debridement (cm) - Length 1.3 -Area of Debridement (cm) - Width 2.7 -Total Square (Area) (cm) 3.51 -Tunneling No -Undermining/Tunneling No -Circular Undermining No -Wound/Ulcer Outcome Not Healed -Ulcer Cleansing Rinsed/ Irrigated with Saline -Foul Odor after Cleansing No -Bioengineered Tissue No -Bleeding Controlled with Pressure -Offloading Yes -Type of Offloading Surgical Shoe -Treatment Response Procedure Tolerated Well -Debridement - Subq, 1st 20sq cm No #37-right 2nd toe -Time 11:58 -Correct Patient Yes -Correct Side, Site, Position Yes -Correct Procedure Yes -Procedure Performed Yes -Type of Procedure Debridement -Clinical Debridement Subcutaneous -Tissue Removed Subcutaneous -Post Debridement (cm) - Length 4.2 -Post Debridement (cm) - Width 1.2 -Post Debridement (cm) - Depth 0.2 -Total Square (Post) (cm) 5.04 -Area of Debridement (cm) - Length 4.2 -Area of Debridement (cm) - Width 1.2 -Total Square (Area) (cm) 5.04 -Tunneling No -Undermining/Tunneling No -Circular Undermining No -Wound/Ulcer Outcome Not Healed -Ulcer Cleansing Rinsed/ Irrigated with Saline -Foul Odor after Cleansing No -Bioengineered Tissue No -Bleeding Controlled with Pressure -Offloading Yes -Type of Offloading Surgical Shoe -Treatment Response Procedure Tolerated Well -Debridement - Subq, 1st 20sq cm Yes Pain Scale: 0-10 Numeric Is Patient Pain Free? Yes WC - Nurse 3 - General Ulcer D/C NN Start: 01/25/20 11:27 Freq: Status: Active Protocol: Activity Type Activity Date Activity User E-Sign Co-Sign Detail Recorded Client Recorded Date Recorded By Document 01/25/20 12:06 NORRIS [id number] 01/25/20 12:09 NORRIS 01/25/20 12:06 Wound Care Nurse 3 42-right bernstein -Ulcer Cleansing Rinsed/ Irrigated with Saline -Foul Odor after Cleansing No -Primary Dressing Applied Fibracol Plus 4x4 -Primary Dressing Covered/Secured with Dry Gauze & Roll Gauze, Secured with Tape -Fibracol Plus 4x4 0 39-right lateral foot -Ulcer Cleansing Rinsed/ Irrigated with Saline -Foul Odor after Cleansing No -Primary Dressing Applied Fibracol Plus 4x4 -Primary Dressing Covered/Secured with Dry Gauze & Roll Gauze, Secured with Tape -Fibracol Plus 4x4 0 #35 L Stump -Ulcer Cleansing Rinsed/ Irrigated with Saline -Foul Odor after Cleansing No -Primary Dressing Applied Fibracol Plus 4x4 -Primary Dressing Covered/Secured with Dry Gauze & Roll Gauze, Secured with Tape -Fibracol Plus 4x4 0 #42- R MEDIAL FOOT -Ulcer Cleansing Rinsed/ Irrigated with Saline -Foul Odor after Cleansing No -Primary Dressing Applied Fibracol Plus 4x4 -Primary Dressing Covered/Secured with Dry Gauze & Roll Gauze, Secured with Tape -Fibracol Plus 4x4 0 #37-right 2nd toe -Ulcer Cleansing Rinsed/ Irrigated with Saline -Foul Odor after Cleansing No -Primary Dressing Applied Fibracol Plus 4x4 -Primary Dressing Covered/Secured with Dry Gauze & Roll Gauze, Secured with Tape -Fibracol Plus 4x4 1 Right -Other personal tubigrip used. Left -Other personal tubigrip used Pain Scale: 0-10 Numeric Is Patient Pain Free? Yes WC - Visit Discharge Discharge Condition Stable Ambulatory Status Wheelchair Transportation Private Auto Medication Reconcilliation completed & Yes provided to patient/care provider Clinical Summary of Care Provided Yes Notes: orders faxed to [facility] Wound debrided: bka central stump site Laterality: Left Wound Grade/Stage: grade 1 (prior surgical site) Type of Debridement: Excisional debridement Anesthesia Used: 5% Lidocaine Gel Depth: in the subcutaneous layer Percentage of wound debrided: 100 Instrument Used: #15 blade Tissue Removed: fibrous, devitalized subcutaneous tissue, biofilm, slough Severity: Fat Layer Exposed Amount of bleeding with debridement: Mild Bleeding Controlled with: Pressure Patient tolerated procedure well - Additional Wound Wound debrided: dorsal second toe, sub 5th metatarsal head Laterality: Right Wound Grade/Stage: grade 1 Type of Debridement: Excisional debridement Anesthesia Used: 5% Lidocaine Gel Depth: in the subcutaneous layer Percentage of wound debrided: 100 Instrument Used: #15 blade Tissue Removed: fibrous, devitalized subcutaneous tissue, biofilm, slough Severity: Fat Layer Exposed Amount of bleeding with debridement: Mild Bleeding Controlled with: Pressure Patient tolerated procedure: Patient tolerated procedure well Assessment/Plan Assessment: Open surgical wound anterior aspect left BKA stump. Peripheral vascular disease. Diabetes with neuropathy. Right second toe ulcer, jerez grade 1, no infection. Right plantar lateral forefoot ulcer, jerez grade 1, no infection. Right planatar medial forefoot ulcer, jerez grade 1, no infection. Cellulitis resolving with oral Cleocin use Plan: I reviewed and discussed his case. For the anterior aspect left BKA stump, will continue Fibracol dressing changes daily. His ulcers to his right foot are noted. All bilateral lower extremity ulcer sites were debrided as noted in the clinical panel. To wash daily with soap and water. To change dressing with Aquacel Ag on the right foot also. To keep pressure off of the ulcer sites and a surgical shoe with heel weightbearing. To ambulate with his potential surgical shoe in place if able to. To continue work with home physical therapy. To continue to optimize healing with improved glycemic index, continued weight reduction, and well-balanced [employer] nutrients. He was reassured no local signs of infection are noted today. To complete the full course of Cleocin. To call if symptoms return. Check feet daily monitor for this. His recent hospital admission as noted and I reviewed his medical records that he brought with him today. His white blood cell count was 7.62 during his recent hospital admission before discharge. His hemoglobin A1c was 7.3%. To continue with edema management including his compression wraps and also lymphedema pumps. He admits he has gotten away from using the pumps after his last MRSA infection. He plans to thoroughly clean the devices prior to resuming use which is encouraged. He has resolution of local and systemic signs of illness and I do not recommend additional antibiotics at this time. To return to clinic in 1 to 2 weeks or call sooner if you have any questions or concerns.
[2020-02-08 11:39] VITALS: BP 164/55; PULSE 51; RESP 16; TEMP 36.5; BMI 47.9
--- NOTE | 2020-02-08 12:29 | PN.PCM_ITS ---
(1) Diabetes mellitus with polyneuropathy Status: Chronic Qualifiers: Code(s): E11.42 - Type 2 diabetes mellitus with diabetic polyneuropathy (2) Ulcer of left lower extremity with fat layer exposed Status: Chronic Code(s): L97.922 - Non-pressure chronic ulcer of unspecified part of left lower leg with fat layer exposed (3) Ulcer of right foot with fat layer exposed Status: Chronic Code(s): L97.512 - Non-pressure chronic ulcer of other part of right foot with fat layer exposed (4) Venous insufficiency Status: Chronic Code(s): I87.2 - Venous insufficiency (chronic) (peripheral) Type of Wound Date of Service: 02/08/20 Chief Complaint: Open surgical wound anterior aspect left BKA stump. Right second toe ulcer. 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 He has been managed by his surgeon. He also has multiple right foot ulcers, and has been performing dressing changes as advised. He denies fever, chills, nausea, vomiting. He denies redness or odor. He has been trying to offload and keep his swelling reduced by wearing Tubigrip compression dressings. He denies redness or odor. He is trying to wear protec tive shoe gear while cutting wood to heat his home this winter. He also wears a protective bernstein guard. Progress of Wound: Left below-knee amputation with ulcers stable. Stable right foot - Physical Exam Vital Signs Temp Pulse Resp BP 97.7 F L 51 L 16 164/55 H 02/08/20 11:39 02/08/20 11:39 02/08/20 11:39 02/08/20 11:39 General: Alert, Oriented x3, Cooperative, No apparent distress HEENT: Atraumatic Extremities: No cyanosis, Capillary Refill Less than 3 Seconds, No Calf Tenderness, Diminished Peripheral Pulses, Edema Skin: Ulcer/ Wound - No purulence, erythema, streaking, odor, infection. Reduction in ulcer sizes are noted. His skin is atrophic and hairless. Wound Measurements and Assessment WC - Nurse 1 - General Ulcer Measurement Start: 01/25/20 11:27 Freq: Status: Active Protocol: Activity Type Activity Date Activity User E-Sign Co-Sign Detail Recorded Client Recorded Date Recorded By Document 02/08/20 11:39 [email or web address] [id number] 02/08/20 11:55 [facility] 02/08/20 11:39 Wound Center Nurse 1 [Ulcer Assessment] 42-right bernstein -Combined with other wound No -Current Size (cm) - Length 0.1 -Current Size (cm) - Width 0.1 -Current Size (cm) - Depth 0.1 -Total Square Cm 0.01 -Epithelialization Large 67-100% 39-right lateral foot -Combined with other wound No -Current Size (cm) - Length 1.5 -Current Size (cm) - Width 1.3 -Current Size (cm) - Depth 0.2 -Total Square Cm 1.95 -Photo Taken No -Epithelialization None Present -Tunneling No -Undermining/Tunneling No -Circular Undermining No -Exudate Amt Medium -Exudate Type Serosanguineous -Wound Margin Distinct, Outline Attached -Granulation Amt Medium (34-66%) -Granulation Quality Red -Slough/Fibrin Yes -Necrosis Amt Medium (34-66%) -Necrotic Tissue Type Adherent Slough -Texture (Susy-wound Skin Appearance) Assessed, Scarring -Moisture (Susy-wound Skin Appearance Assessed,Dry/ ) Scaly -Color (Susy-wound Skin Appearance) Assessed -Temperature (Susy-wound Skin No Abnormality Appearance) (Pt Warm) -Tenderness on Palpation (Susy-wound No Skin Appearance) -Ulcer Cleansing soapy water -Foul Odor after Cleansing No -Anesthetic Used 4% Lidocaine Solution #35 L Stump -Combined with other wound No -Current Size (cm) - Length 0.9 -Current Size (cm) - Width 2.3 -Current Size (cm) - Depth 0.2 -Total Square Cm 2.07 -Photo Taken No -Epithelialization None Present -Tunneling No -Undermining/Tunneling No -Circular Undermining No -Exudate Amt Medium -Exudate Type Serosanguineous -Wound Margin Distinct, Outline Attached -Granulation Amt Small (1-33%) -Granulation Quality [place]ood -Slough/Fibrin Yes -Necrosis Amt Large (67-100%) -Necrotic Tissue Type Adherent Slough -Texture (Susy-wound Skin Appearance) Assessed, Scarring -Moisture (Susy-wound Skin Appearance Assessed,Dry/ ) Scaly -Color (Susy-wound Skin Appearance) Assessed -Temperature (Susy-wound Skin No Abnormality Appearance) (Pt Warm) -Tenderness on Palpation (Susy-wound No Skin Appearance) -Ulcer Cleansing soapy water -Foul Odor after Cleansing No -Anesthetic Used 4% Lidocaine Solution #42- R MEDIAL FOOT -Combined with other wound No -Current Size (cm) - Length 0.3 -Current Size (cm) - Width 1.7 -Current Size (cm) - Depth 0.3 -Total Square Cm 0.51 -Photo Taken No -Epithelialization None Present -Tunneling No -Undermining/Tunneling No -Circular Undermining No -Exudate Amt Medium -Exudate Type Serosanguineous -Wound Margin Distinct, Outline Attached -Granulation Amt Small (1-33%) -Granulation Quality [place] -Slough/Fibrin Yes -Necrosis Amt Large (67-100%) -Necrotic Tissue Type Adherent Slough -Texture (Susy-wound Skin Appearance) Assessed, Scarring -Moisture (Susy-wound Skin Appearance Assessed,Dry/ ) Scaly -Color (Susy-wound Skin Appearance) Assessed -Temperature (Susy-wound Skin No Abnormality Appearance) (Pt Warm) -Tenderness on Palpation (Susy-wound No Skin Appearance) -Ulcer Cleansing soapy water -Foul Odor after Cleansing No -Anesthetic Used 4% Lidocaine Solution #37-right 2nd toe -Combined with other wound No -Current Size (cm) - Length 0.1 -Current Size (cm) - Width 0.1 -Current Size (cm) - Depth 0.1 -Total Square Cm 0.01 -Photo Taken No -Tunneling No -Undermining/Tunneling No -Circular Undermining No -Texture (Susy-wound Skin Appearance) Assessed,Callus ,Scarring -Moisture (Susy-wound Skin Appearance Assessed,Dry/ ) Scaly -Color (Susy-wound Skin Appearance) Assessed -Temperature (Susy-wound Skin No Abnormality Appearance) (Pt Warm) -Tenderness on Palpation (Susy-wound No Skin Appearance) -Ulcer Cleansing soapy water -Foul Odor after Cleansing No -Anesthetic Used 4% Lidocaine Solution [Edema Assessment] -Lower Limb Edema Present Yes -Right Calf (cm) 40.6 -Right Ankle (cm) 28.2 WC - Nurse 2 - General Ulcer CM Notes Start: 01/25/20 11:27 Freq: Status: Active Protocol: Activity Type Activity Date Activity User E-Sign Co-Sign Detail Recorded Client Recorded Date Recorded By Document 02/08/20 12:01 NORRIS [id number] 02/08/20 12:07 NORRIS 02/08/20 12:01 Wound Center Nurse 2 [Procedure/Treatment] 42-right bernstein -Correct Patient No -Correct Side, Site, Position No -Correct Procedure No -Procedure Performed No -Post Debridement (cm) - Length 0 -Post Debridement (cm) - Width 0 -Post Debridement (cm) - Depth 0 -Total Square (Post) (cm) 0 -Area of Debridement (cm) - Length 0 -Area of Debridement (cm) - Width 0 -Total Square (Area) (cm) 0 -Wound/Ulcer Outcome Healed- Epithelialized 39-right lateral foot -Time 12:01 -Correct Patient Yes -Correct Side, Site, Position Yes -Correct Procedure Yes -Procedure Performed Yes -Type of Procedure Debridement -Clinical Debridement Subcutaneous -Tissue Removed Subcutaneous -Post Debridement (cm) - Length 1.5 -Post Debridement (cm) - Width 1.4 -Post Debridement (cm) - Depth 0.2 -Total Square (Post) (cm) 2.10 -Area of Debridement (cm) - Length 1.5 -Area of Debridement (cm) - Width 1.4 -Total Square (Area) (cm) 2.10 -Tunneling No -Undermining/Tunneling No -Circular Undermining No -Wound/Ulcer Outcome Not Healed -Ulcer Cleansing Rinsed/ Irrigated with Saline -Foul Odor after Cleansing No -Bioengineered Tissue No -Bleeding Controlled with Pressure -Offloading Yes -Type of Offloading Surgical Shoe -Treatment Response Procedure Tolerated Well -Debridement - Subq, 1st 20sq cm No #35 L Stump -Time 12:02 -Correct Patient Yes -Correct Side, Site, Position Yes -Correct Procedure Yes -Procedure Performed Yes -Type of Procedure Debridement -Clinical Debridement Subcutaneous -Tissue Removed Subcutaneous -Post Debridement (cm) - Length 1.0 -Post Debridement (cm) - Width 2.3 -Post Debridement (cm) - Depth 0.2 -Total Square (Post) (cm) 2.30 -Area of Debridement (cm) - Length 1.0 -Area of Debridement (cm) - Width 2.3 -Total Square (Area) (cm) 2.30 -Tunneling No -Undermining/Tunneling No -Circular Undermining No -Wound/Ulcer Outcome Not Healed -Ulcer Cleansing Rinsed/ Irrigated with Saline -Foul Odor after Cleansing No -Bioengineered Tissue No -Bleeding Controlled with Pressure -Offloading No -Treatment Response Procedure Tolerated Well -Debridement - Subq, 1st 20sq cm No #42- R MEDIAL FOOT -Time 12:02 -Correct Patient Yes -Correct Side, Site, Position Yes -Correct Procedure Yes -Procedure Performed Yes -Type of Procedure Debridement -Clinical Debridement Subcutaneous -Tissue Removed Subcutaneous -Post Debridement (cm) - Length 0.4 -Post Debridement (cm) - Width 1.8 -Post Debridement (cm) - Depth 0.3 -Total Square (Post) (cm) 0.72 -Area of Debridement (cm) - Length 0.4 -Area of Debridement (cm) - Width 1.8 -Total Square (Area) (cm) 0.72 -Tunneling No -Undermining/Tunneling No -Circular Undermining No -Wound/Ulcer Outcome Not Healed -Ulcer Cleansing Rinsed/ Irrigated with Saline -Foul Odor after Cleansing No -Bioengineered Tissue No -Bleeding Controlled with Pressure -Offloading Yes -Type of Offloading Surgical Shoe -Treatment Response Procedure Tolerated Well -Debridement - Subq, 1st 20sq cm No #37-right 2nd toe -Time 12:03 -Correct Patient Yes -Correct Side, Site, Position Yes -Correct Procedure Yes -Procedure Performed Yes -Type of Procedure Debridement -Clinical Debridement Subcutaneous -Tissue Removed Subcutaneous -Post Debridement (cm) - Length 2.0 -Post Debridement (cm) - Width 2.0 -Post Debridement (cm) - Depth 0.1 -Total Square (Post) (cm) 4.00 -Area of Debridement (cm) - Length 2.0 -Area of Debridement (cm) - Width 2.0 -Total Square (Area) (cm) 4.00 -Tunneling No -Undermining/Tunneling No -Wound/Ulcer Outcome Not Healed -Ulcer Cleansing Rinsed/ Irrigated with Saline -Foul Odor after Cleansing No -Bioengineered Tissue No -Bleeding Controlled with Pressure -Offloading Yes -Type of Offloading Surgical Shoe -Treatment Response Procedure Tolerated Well -Debridement - Subq, 1st 20sq cm Yes [See Physician Procedure note for Specifics] Pain Scale: 0-10 Numeric [Pain] -Is Patient Pain Free? Yes WC - Nurse 3 - General Ulcer D/C NN Start: 01/25/20 11:27 Freq: Status: Active Protocol: Activity Type Activity Date Activity User E-Sign Co-Sign Detail Recorded Client Recorded Date Recorded By Document 02/08/20 12:10 [facility] [id number] 02/08/20 12:12 [facility] 02/08/20 12:10 Wound Care Nurse 3 [Wound Dressing] 39-right lateral foot -Ulcer Cleansing Rinsed/ Irrigated with Saline -Foul Odor after Cleansing No -Primary Dressing Applied Aquacel Extra -Primary Dressing Covered/Secured Dry Gauze & with Roll Gauze, Secured with Tape -Aquacel Extra 1 #35 L Stump -Ulcer Cleansing Rinsed/ Irrigated with Saline -Foul Odor after Cleansing No -Primary Dressing Applied Aquacel Extra -Primary Dressing Covered/Secured Dry Gauze & with Roll Gauze, Secured with Tape -Aquacel Extra 0 #42- R MEDIAL FOOT -Ulcer Cleansing Rinsed/ Irrigated with Saline -Foul Odor after Cleansing No -Primary Dressing Applied Aquacel Extra -Primary Dressing Covered/Secured Dry Gauze & with Roll Gauze, Secured with Tape -Aquacel Extra 0 #37-right 2nd toe -Ulcer Cleansing Rinsed/ Irrigated with Saline -Foul Odor after Cleansing No -Primary Dressing Applied Aquacel Extra -Primary Dressing Covered/Secured Dry Gauze & with Roll Gauze, Secured with Tape -Aquacel Extra 0 [Compression Applied] Right -Other pts own farrow wrap applied Left -Other pts own single layer tubi applied Pain Scale: 0-10 Numeric [Pain] -Is Patient Pain Free? Yes - Visit Discharge [Visit Discharge Information] -Discharge Condition Stable -Ambulatory Status Ambulatory -Transportation Private Auto [Facility Notification] -Facility Type Home Health Musculoskeletal: No Tenderness to Palpation of Joints or Extremities, Muscle Wasting Neurological: - - Lack of epicritic sensation light touch is consistent with neuropathy status Psych/Mental Status: Normal Affect, Appropriate Debridement Note Post-Debridement Measurements/Treatment - Nurse 2 - General Ulcer CM Notes Start: 01/25/20 11:27 Freq: Status: Active Protocol: Activity Type Activity Date Activity User E-Sign Co-Sign Detail Recorded Client Recorded Date Recorded By Document 01/25/20 11:56 [id number] 01/25/20 12:02 Document 02/08/20 12:01 [id number] 02/08/20 12:07 01/25/20 02/08/20 11:56 12:01 Wound Center Nurse 2 42-right bernstein -Time : -Correct Patient Yes No -Correct Side, Site, Position Yes No -Correct Procedure Yes No -Procedure Performed Yes No -Type of Procedure Debridement -Clinical Debridement Subcutaneous -Tissue Removed Subcutaneous -Post Debridement (cm) - Length 0.1 0 -Post Debridement (cm) - Width 0.1 0 -Post Debridement (cm) - Depth 0.1 0 -Total Square (Post) (cm) 0.01 0 -Area of Debridement (cm) - Length 0.1 0 -Area of Debridement (cm) - Width 0.1 0 -Total Square (Area) (cm) 0.01 0 -Tunneling No -Undermining/Tunneling No -Circular Undermining No -Wound/Ulcer Outcome Not Healed Healed- Epithelialized -Ulcer Cleansing Rinsed/ Irrigated with Saline -Foul Odor after Cleansing No -Bioengineered Tissue No -Bleeding Controlled with Pressure -Offloading No -Treatment Response Procedure Tolerated Well -Debridement - Subq, 1st 20sq cm No 39-right lateral foot -Time 12:01 -Correct Patient Yes Yes -Correct Side, Site, Position Yes Yes -Correct Procedure Yes Yes -Procedure Performed Yes Yes -Type of Procedure Debridement Debridement -Clinical Debridement Subcutaneous Subcutaneous -Tissue Removed Subcutaneous Subcutaneous -Post Debridement (cm) - Length 1.7 1.5 -Post Debridement (cm) - Width 1.9 1.4 -Post Debridement (cm) - Depth 0.2 0.2 -Total Square (Post) (cm) 3.23 2.10 -Area of Debridement (cm) - Length 1.7 1.5 -Area of Debridement (cm) - Width 1.9 1.4 -Total Square (Area) (cm) 3.23 2.10 -Tunneling No No -Undermining/Tunneling No No -Circular Undermining No No -Wound/Ulcer Outcome Not Healed Not Healed -Ulcer Cleansing Rinsed/ Rinsed/ Irrigated with Irrigated with Saline Saline -Foul Odor after Cleansing No No -Bioengineered Tissue No No -Bleeding Controlled with Pressure Pressure -Offloading No Yes -Type of Offloading Surgical Shoe -Treatment Response Procedure Procedure Tolerated Well Tolerated Well -Debridement - Subq, 1st 20sq cm No No #35 L Stump -Time 11:57 12:02 -Correct Patient Yes Yes -Correct Side, Site, Position Yes Yes -Correct Procedure Yes Yes -Procedure Performed Yes Yes -Type of Procedure Debridement Debridement -Clinical Debridement Subcutaneous Subcutaneous -Tissue Removed Subcutaneous Subcutaneous -Post Debridement (cm) - Length 0.8 1.0 -Post Debridement (cm) - Width 2.0 2.3 -Post Debridement (cm) - Depth 0.2 0.2 -Total Square (Post) (cm) 1.60 2.30 -Area of Debridement (cm) - Length 0.8 1.0 -Area of Debridement (cm) - Width 2.0 2.3 -Total Square (Area) (cm) 1.60 2.30 -Tunneling No No -Undermining/Tunneling No No -Circular Undermining No No -Wound/Ulcer Outcome Not Healed Not Healed -Ulcer Cleansing Rinsed/ Rinsed/ Irrigated with Irrigated with Saline Saline -Foul Odor after Cleansing No No -Bioengineered Tissue No No -Bleeding Controlled with Pressure Pressure -Offloading No No -Treatment Response Procedure Procedure Tolerated Well Tolerated Well -Debridement - Subq, 1st 20sq cm No No #42- R MEDIAL FOOT -Time 11:57 12:02 -Correct Patient Yes Yes -Correct Side, Site, Position Yes Yes -Correct Procedure Yes Yes -Procedure Performed Yes Yes -Type of Procedure Debridement Debridement -Clinical Debridement Subcutaneous Subcutaneous -Tissue Removed Subcutaneous Subcutaneous -Post Debridement (cm) - Length 1.3 0.4 -Post Debridement (cm) - Width 2.7 1.8 -Post Debridement (cm) - Depth 0.2 0.3 -Total Square (Post) (cm) 3.51 0.72 -Area of Debridement (cm) - Length 1.3 0.4 -Area of Debridement (cm) - Width 2.7 1.8 -Total Square (Area) (cm) 3.51 0.72 -Tunneling No No -Undermining/Tunneling No No -Circular Undermining No No -Wound/Ulcer Outcome Not Healed Not Healed -Ulcer Cleansing Rinsed/ Rinsed/ Irrigated with Irrigated with Saline Saline -Foul Odor after Cleansing No No -Bioengineered Tissue No No -Bleeding Controlled with Pressure Pressure -Offloading Yes Yes -Type of Offloading Surgical Shoe Surgical Shoe -Treatment Response Procedure Procedure Tolerated Well Tolerated Well -Debridement - Subq, 1st 20sq cm No No #37-right 2nd toe -Time 11:58 12:03 -Correct Patient Yes Yes -Correct Side, Site, Position Yes Yes -Correct Procedure Yes Yes -Procedure Performed Yes Yes -Type of Procedure Debridement Debridement -Clinical Debridement Subcutaneous Subcutaneous -Tissue Removed Subcutaneous Subcutaneous -Post Debridement (cm) - Length 4.2 2.0 -Post Debridement (cm) - Width 1.2 2.0 -Post Debridement (cm) - Depth 0.2 0.1 -Total Square (Post) (cm) 5.04 4.00 -Area of Debridement (cm) - Length 4.2 2.0 -Area of Debridement (cm) - Width 1.2 2.0 -Total Square (Area) (cm) 5.04 4.00 -Tunneling No No -Undermining/Tunneling No No -Circular Undermining No -Wound/Ulcer Outcome Not Healed Not Healed -Ulcer Cleansing Rinsed/ Rinsed/ Irrigated with Irrigated with Saline Saline -Foul Odor after Cleansing No No -Bioengineered Tissue No No -Bleeding Controlled with Pressure Pressure -Offloading Yes Yes -Type of Offloading Surgical Shoe Surgical Shoe -Treatment Response Procedure Procedure Tolerated Well Tolerated Well -Debridement - Subq, 1st 20sq cm Yes Yes Pain Scale: 0-10 Numeric Is Patient Pain Free? Yes Yes - Nurse 3 - General Ulcer D/C NN Start: 01/25/20 11:27 Freq: Status: Active Protocol: Activity Type Activity Date Activity User E-Sign Co-Sign Detail Recorded Client Recorded Date Recorded By Document 01/25/20 12:06 [id number] 01/25/20 12:09 Document 02/08/20 12:10 [facility] [id number] 02/08/20 12:12 [facility] 01/25/20 02/08/20 12:06 12:10 Wound Care Nurse 3 42-right bernstein -Ulcer Cleansing Rinsed/ Irrigated with Saline -Foul Odor after Cleansing No -Primary Dressing Applied Fibracol Plus 4x4 -Primary Dressing Covered/Secured with Dry Gauze & Roll Gauze, Secured with Tape -Fibracol Plus 4x4 0 39-right lateral foot -Ulcer Cleansing Rinsed/ Rinsed/ Irrigated with Irrigated with Saline Saline -Foul Odor after Cleansing No No -Primary Dressing Applied Fibracol Plus Aquacel Extra 4x4 -Primary Dressing Covered/Secured with Dry Gauze & Dry Gauze & Roll Gauze, Roll Gauze, Secured with Secured with Tape Tape -Aquacel Extra 1 -Fibracol Plus 4x4 0 #35 L Stump -Ulcer Cleansing Rinsed/ Rinsed/ Irrigated with Irrigated with Saline Saline -Foul Odor after Cleansing No No -Primary Dressing Applied Fibracol Plus Aquacel Extra 4x4 -Primary Dressing Covered/Secured with Dry Gauze & Dry Gauze & Roll Gauze, Roll Gauze, Secured with Secured with Tape Tape -Aquacel Extra 0 -Fibracol Plus 4x4 0 #42- R MEDIAL FOOT -Ulcer Cleansing Rinsed/ Rinsed/ Irrigated with Irrigated with Saline Saline -Foul Odor after Cleansing No No -Primary Dressing Applied Fibracol Plus Aquacel Extra 4x4 -Primary Dressing Covered/Secured with Dry Gauze & Dry Gauze & Roll Gauze, Roll Gauze, Secured with Secured with Tape Tape -Aquacel Extra 0 -Fibracol Plus 4x4 0 #37-right 2nd toe -Ulcer Cleansing Rinsed/ Rinsed/ Irrigated with Irrigated with Saline Saline -Foul Odor after Cleansing No No -Primary Dressing Applied Fibracol Plus Aquacel Extra 4x4 -Primary Dressing Covered/Secured with Dry Gauze & Dry Gauze & Roll Gauze, Roll Gauze, Secured with Secured with Tape Tape -Aquacel Extra 0 -Fibracol Plus 4x4 1 Right -Other personal pts own farrow tubigrip used. wrap applied Left -Other personal pts own single tubigrip used layer tubi applied Pain Scale: 0-10 Numeric Is Patient Pain Free? Yes Yes WC - Visit Discharge Discharge Condition Stable Stable Ambulatory Status Wheelchair Ambulatory Transportation Private Auto Private Auto Medication Reconcilliation completed & Yes provided to patient/care provider Clinical Summary of Care Provided Yes Notes: orders faxed to [facility] Facility Type Home Health Wound debrided: leg stump anterior Laterality: Left Wound Grade/Stage: grade 1 (prior surgical) Type of Debridement: Excisional debridement Anesthesia Used: 5% Lidocaine Gel Depth: in the subcutaneous layer Percentage of wound debrided: 100 Instrument Used: #15 blade Tissue Removed: fibrous, devitalized subcutaneous, biofilm, slough Severity: Fat Layer Exposed Amount of bleeding with debridement: Mild Bleeding Controlled with: Pressure Patient tolerated procedure well - Additional Wound Wound debrided: lateral forefoot, dorsal 2nd toe, medial forefoot Laterality: Right Wound Grade/Stage: grade 1 Type of Debridement: Excisional debridement Anesthesia Used: 5% Lidocaine Gel Depth: in the subcutaneous layer Percentage of wound debrided: 100 Instrument Used: #15 blade Tissue Removed: fibrous, devitalized subcutaneous, biofilm, slough Severity: Fat Layer Exposed Amount of bleeding with debridement: Mild Bleeding Controlled with: Pressure Patient tolerated procedure: Patient tolerated procedure well Assessment/Plan Active Problems Venous insufficiency (Chronic) Ulcer of left lower extremity with fat layer exposed (Chronic) Ulcer of right foot with fat layer exposed (Chronic) Diabetes mellitus with polyneuropathy (Chronic) Assessment: Open surgical wound anterior aspect left BKA stump. Peripheral vascular disease. Diabetes with neuropathy. Right second toe ulcer, jerez grade 1, no infection. Right plantar lateral forefoot ulcer, jerez grade 1, no infection. Right planatar medial forefoot ulcer, jerez grade 1, no infection. Cellulitis resolving with oral Cleocin use Plan: I reviewed and discussed his case. For the anterior aspect left BKA stump, will continue Fibracol (Aquacel Ag due to Fibracol shortage currently) dressing changes daily. His ulcers to his right foot are noted. All bilateral lower extremity ulcer sites were debrided as noted in the clinical panel. To wash daily with soap and water. To change dressing with Aquacel Ag on the right foot also. To keep pressure off of the ulcer sites and a surgical shoe with heel weightbearing. To ambulate with his potential surgical shoe in place if able to. To continue work with home physical therapy. To continue to optimize healing with improved glycemic index, continued weight reduction, and well- balanced [employer] nutrients. He was reassured no local signs of infection are noted today. To complete the full course of Cleocin. To call if symptoms return. Check feet daily monitor for this. His recent hospital admission as n cathie and I reviewed his medical records that he brought with him today. His white blood cell count was 7.62 during his recent hospital admission before discharge. His hemoglobin A1c was 7.3%. To continue with edema management including his compression wraps and also lymphedema pumps. To return to clinic in 1 to 2 weeks or call sooner if you have any questions or concerns.
== END 2020-02-13 23:59 ==
LOC: WC 11:00
PROVIDERS: PCP Family Medicine; Visit Provider Surgery
DX: E11.621 Type 2 diabetes mellitus with foot ulcer (principal); L97.922 Non-pressure chronic ulcer of unspecified part of left lower leg with fat layer exposed; L97.512 Non-pressure chronic ulcer of other part of right foot with fat layer exposed; I87.2 Venous insufficiency (chronic) (peripheral); E11.42 Type 2 diabetes mellitus with diabetic polyneuropathy; Z89.512 Acquired absence of left leg below knee; E11.51 Type 2 diabetes mellitus with diabetic peripheral angiopathy without gangrene; I89.0 Lymphedema, not elsewhere classified; L03.115 Cellulitis of right lower limb
CPT/HCPCS: 11042

== ENCOUNTER 2020-03-13 11:00 | Outpatient (RCR) | payer MEDICARE, MEDICAID, SELFPAY ==
[2020-02-14 00:15] VITALS: BP 164/55; PULSE 51; RESP 16; TEMP 36.5
[2020-02-15 11:57] VITALS: BP 134/73; PULSE 68; RESP 18; TEMP 36.2; BMI 47.9
--- NOTE | 2020-02-15 21:08 | PCM.WC.PN ---
(1) Ulcer of left lower extremity with fat layer exposed Status: Chronic Code(s): L97.922 - Non-pressure chronic ulcer of unspecified part of left lower leg with fat layer exposed (2) Ulcer of right foot with fat layer exposed Status: Chronic Code(s): L97.512 - Non-pressure chronic ulcer of other part of right foot with fat layer exposed (3) Diabetes mellitus with polyneuropathy Status: Chronic Qualifiers: Code(s): E11.42 - Type 2 diabetes mellitus with diabetic polyneuropathy (4) Nonhealing amputation stump Status: Chronic Code(s): T87.89 - Other complications of amputation stump (5) Obesity Status: Chronic Code(s): E66.9 - Obesity, unspecified (6) Walking difficulty due to ankle and foot Status: Chronic Code(s): R26.2 - Difficulty in walking, not elsewhere classified Type of Wound Date of Service: 02/16/20 Chief Complaint: Open surgical wound anterior aspect left BKA stump. Right second toe ulcer. 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 He also has multiple right foot ulcers, and has been performing dressing changes as advised. He denies fever, chills, nausea, vomiting. He denies redness or odor. He has been trying to offload and keep his swelling reduced by wearing Tubigrip compression dressings. He denies redness or odor. He is ambulating in a motorized scooter. Progress of Wound: Left below-knee amputation with ulcer stable. Stable right foot ulcers - Physical Exam Vital Signs Temp Pulse Resp BP 97.2 F L 68 18 134/73 H 02/15/20 11:57 02/15/20 11:57 02/15/20 11:57 02/15/20 11:57 General: Alert, Oriented x3, Cooperative, No apparent distress HEENT: Atraumatic Extremities: No cyanosis, Capillary Refill Less than 3 Seconds, No Calf Tenderness, Diminished Peripheral Pulses, Edema Skin: Ulcer/ Wound - No purulence, erythema, streaking, odor, infection. Ulcer bases are granular with spares fibrous tissue. His adjacent skin is hairless and atrophic. There is no bone or joint exposed Wound Measurements and Assessment WC - Nurse 1 - General Ulcer Measurement Start: 02/15/20 11:57 Freq: Status: Active Protocol: Activity Type Activity Date Activity User E-Sign Co-Sign Detail Recorded Client Recorded Date Recorded By Document 02/15/20 11:57 DL [id number] 02/15/20 12:06 DL 02/15/20 11:57 Wound Center Nurse 1 [Ulcer Assessment] 39-right lateral foot -Current Size (cm) - Length 1 -Current Size (cm) - Width 1.2 -Current Size (cm) - Depth 0.2 -Total Square Cm 1.2 -Photo Taken No -Exudate Amt Small -Exudate Type Serosanguineous -Wound Margin Distinct, Outline Attached -Granulation Amt Medium (34-66%) -Granulation Quality Red -Necrosis Amt Medium (34-66%) -Necrotic Tissue Type Adherent Slough -Structure Exposed N/A -Texture (Susy-wound Skin Appearance) Scarring -Moisture (Susy-wound Skin Appearance Dry/Scaly ) -Color (Susy-wound Skin Appearance) Hemosiderin Staining -Temperature (Susy-wound Skin No Abnormality Appearance) (Pt Warm) -Tenderness on Palpation (Susy-wound No Skin Appearance) -Ulcer Cleansing Wound Cleanser -Foul Odor after Cleansing No -Anesthetic Used 4% Lidocaine Solution #35 L Stump -Current Size (cm) - Length 1.2 -Current Size (cm) - Width 4 -Current Size (cm) - Depth 0.3 -Total Square Cm 4.8 -Photo Taken No -Exudate Amt Medium -Exudate Type Serosanguineous -Wound Margin Thickened & Rolled Under -Granulation Amt Medium (34-66%) -Granulation Quality Red -Necrosis Amt Medium (34-66%) -Necrotic Tissue Type Adherent Slough -Structure Exposed N/A -Texture (Susy-wound Skin Appearance) Scarring -Moisture (Susy-wound Skin Appearance Dry/Scaly ) -Color (Susy-wound Skin Appearance) Hemosiderin Staining -Temperature (Susy-wound Skin No Abnormality Appearance) (Pt Warm) -Tenderness on Palpation (Susy-wound No Skin Appearance) -Ulcer Cleansing Wound Cleanser -Foul Odor after Cleansing No -Anesthetic Used 4% Lidocaine Solution #42- R MEDIAL FOOT -Current Size (cm) - Length 0.5 -Current Size (cm) - Width 1 -Current Size (cm) - Depth 0.5 -Total Square Cm 0.5 -Photo Taken No -Exudate Amt Small -Exudate Type Serosanguineous -Wound Margin Distinct, Outline Attached -Granulation Amt Medium (34-66%) -Granulation Quality Red -Necrosis Amt Medium (34-66%) -Necrotic Tissue Type Adherent Slough -Structure Exposed N/A -Texture (Susy-wound Skin Appearance) Scarring -Moisture (Susy-wound Skin Appearance Dry/Scaly ) -Color (Susy-wound Skin Appearance) Hemosiderin Staining -Temperature (Susy-wound Skin No Abnormality Appearance) (Pt Warm) -Tenderness on Palpation (Susy-wound No Skin Appearance) -Ulcer Cleansing Wound Cleanser -Foul Odor after Cleansing No -Anesthetic Used 4% Lidocaine Solution #37-right 2nd toe -Current Size (cm) - Length 1.3 -Current Size (cm) - Width 1.2 -Current Size (cm) - Depth 0.1 -Total Square Cm 1.56 -Photo Taken No -Exudate Amt Small -Exudate Type Serosanguineous -Wound Margin Distinct, Outline Attached -Granulation Amt Medium (34-66%) -Granulation Quality Red -Necrosis Amt Medium (34-66%) -Necrotic Tissue Type Adherent Slough -Structure Exposed N/A -Texture (Susy-wound Skin Appearance) Scarring -Moisture (Susy-wound Skin Appearance Dry/Scaly ) -Color (Susy-wound Skin Appearance) Hemosiderin Staining -Temperature (Susy-wound Skin No Abnormality Appearance) (Pt Warm) -Tenderness on Palpation (Susy-wound No Skin Appearance) -Ulcer Cleansing Wound Cleanser -Foul Odor after Cleansing No -Anesthetic Used 4% Lidocaine Solution [Edema Assessment] -Right Calf (cm) 46 -Right Ankle (cm) 30 WC - Nurse 2 - General Ulcer CM Notes Start: 02/15/20 11:57 Freq: Status: Active Protocol: Activity Type Activity Date Activity User E-Sign Co-Sign Detail Recorded Client Recorded Date Recorded By Document 02/15/20 12:08 NORRIS [id number] 02/15/20 12:12 NORRIS 02/15/20 12:08 Wound Center Nurse 2 [Procedure/Treatment] 39-right lateral foot -Time 12:08 -Correct Patient Yes -Correct Side, Site, Position Yes -Correct Procedure Yes -Procedure Performed Yes -Type of Procedure Debridement -Clinical Debridement Subcutaneous -Tissue Removed Subcutaneous -Post Debridement (cm) - Length 1.1 -Post Debridement (cm) - Width 1.2 -Post Debridement (cm) - Depth 0.3 -Total Square (Post) (cm) 1.32 -Area of Debridement (cm) - Length 1.1 -Area of Debridement (cm) - Width 1.2 -Total Square (Area) (cm) 1.32 -Tunneling No -Undermining/Tunneling No -Circular Undermining No -Wound/Ulcer Outcome Not Healed -Ulcer Cleansing Rinsed/ Irrigated with Saline -Foul Odor after Cleansing No -Bioengineered Tissue No -Bleeding Controlled with Pressure -Offloading Yes -Type of Offloading Surgical Shoe -Treatment Response Procedure Tolerated Well -Debridement - Subq, 1st 20sq cm Yes #35 L Stump -Time 12:09 -Correct Patient Yes -Correct Side, Site, Position Yes -Correct Procedure Yes -Procedure Performed Yes -Type of Procedure Debridement -Clinical Debridement Subcutaneous -Tissue Removed Subcutaneous -Post Debridement (cm) - Length 1.2 -Post Debridement (cm) - Width 2.5 -Post Debridement (cm) - Depth 0.3 -Total Square (Post) (cm) 3.00 -Area of Debridement (cm) - Length 1.2 -Area of Debridement (cm) - Width 2.5 -Total Square (Area) (cm) 3.00 -Tunneling No -Undermining/Tunneling No -Circular Undermining No -Wound/Ulcer Outcome Not Healed -Ulcer Cleansing Rinsed/ Irrigated with Saline -Foul Odor after Cleansing No -Bioengineered Tissue No -Bleeding Controlled with Pressure -Offloading Yes -Type of Offloading Surgical Shoe -Treatment Response Procedure Tolerated Well -Debridement - Subq, 1st 20sq cm No #42- R MEDIAL FOOT -Time 12:11 -Correct Patient Yes -Correct Side, Site, Position Yes -Correct Procedure Yes -Procedure Performed Yes -Type of Procedure Debridement -Clinical Debridement Subcutaneous -Tissue Removed Subcutaneous -Post Debridement (cm) - Length 0.5 -Post Debridement (cm) - Width 1.1 -Post Debridement (cm) - Depth 0.5 -Total Square (Post) (cm) 0.55 -Area of Debridement (cm) - Length 0.5 -Area of Debridement (cm) - Width 1.1 -Total Square (Area) (cm) 0.55 -Tunneling No -Undermining/Tunneling No -Circular Undermining No -Wound/Ulcer Outcome Not Healed -Ulcer Cleansing Rinsed/ Irrigated with Saline -Foul Odor after Cleansing No -Bioengineered Tissue No -Bleeding Controlled with Pressure -Offloading Yes -Type of Offloading Surgical Shoe -Treatment Response Procedure Tolerated Well -Debridement - Subq, 1st 20sq cm No #37-right 2nd toe -Time 12:11 -Correct Patient Yes -Correct Side, Site, Position Yes -Correct Procedure Yes -Procedure Performed Yes -Type of Procedure Debridement -Clinical Debridement Subcutaneous -Tissue Removed Subcutaneous -Post Debridement (cm) - Length 1.3 -Post Debridement (cm) - Width 1.3 -Post Debridement (cm) - Depth 0.1 -Total Square (Post) (cm) 1.69 -Area of Debridement (cm) - Length 1.3 -Area of Debridement (cm) - Width 1.3 -Total Square (Area) (cm) 1.69 -Tunneling No -Undermining/Tunneling No -Circular Undermining No -Wound/Ulcer Outcome Not Healed -Ulcer Cleansing Rinsed/ Irrigated with Saline -Foul Odor after Cleansing No -Bioengineered Tissue No -Bleeding Controlled with Pressure -Offloading Yes -Type of Offloading Surgical Shoe -Treatment Response Procedure Tolerated Well -Debridement - Subq, 1st 20sq cm No [See Physician Procedure note for Specifics] Pain Scale: 0-10 Numeric [Pain] -Is Patient Pain Free? Yes WC - Nurse 3 - General Ulcer D/C NN Start: 02/15/20 11:57 Freq: Status: Active Protocol: Activity Type Activity Date Activity User E-Sign Co-Sign Detail Recorded Client Recorded Date Recorded By Document 02/15/20 12:19 NORRIS [id number] 02/15/20 12:21 NORRIS 02/15/20 12:19 Wound Care Nurse 3 [Wound Dressing] 39-right lateral foot -Ulcer Cleansing Rinsed/ Irrigated with Saline -Foul Odor after Cleansing No -Primary Dressing Applied Fibracol Plus 4x4 -Primary Dressing Covered/Secured Dry Gauze & with Roll Gauze, Secured with Tape -Fibracol Plus 4x4 1 #35 L Stump -Ulcer Cleansing Rinsed/ Irrigated with Saline -Foul Odor after Cleansing No -Primary Dressing Applied Fibracol Plus 4x4 -Primary Dressing Covered/Secured Dry Gauze & with Roll Gauze, Secured with Tape -Fibracol Plus 4x4 0 #42- R MEDIAL FOOT -Ulcer Cleansing Rinsed/ Irrigated with Saline -Foul Odor after Cleansing No -Primary Dressing Applied Fibracol Plus 4x4 -Primary Dressing Covered/Secured Dry Gauze & with Roll Gauze, Secured with Tape -Fibracol Plus 4x4 0 #37-right 2nd toe -Ulcer Cleansing Rinsed/ Irrigated with Saline -Foul Odor after Cleansing No -Primary Dressing Applied Fibracol Plus 4x4 -Primary Dressing Covered/Secured Dry Gauze & with Roll Gauze, Secured with Tape -Fibracol Plus 4x4 0 [Compression Applied] Right -Other single tubigrip Pain Scale: 0-10 Numeric [Pain] -Is Patient Pain Free? Yes - Visit Discharge [Visit Discharge Information] -Discharge Condition Stable -Ambulatory Status Wheelchair -Transportation private transportation -Medication Reconcilliation completed Yes & provided to patient/care provider -Clinical Summary of Care Provided Yes Musculoskeletal: No Tenderness to Palpation of Joints or Extremities, Muscle Wasting, - - Left below-knee amputation. Compartments remain soft to palpate bilateral lower extremities Neurological: - - Lack of normal epicritic sensation light touch is consistent with neuropathy status Psych/Mental Status: Normal Affect, Appropriate Debridement Note Post-Debridement Measurements/Treatment - Nurse 2 - General Ulcer CM Notes Start: 02/15/20 11:57 Freq: Status: Active Protocol: Activity Type Activity Date Activity User E-Sign Co-Sign Detail Recorded Client Recorded Date Recorded By Document 02/15/20 12:08 NORRIS [id number] 02/15/20 12:12 NORRIS 02/15/20 12:08 Wound Center Nurse 2 39-right lateral foot -Time 12:08 -Correct Patient Yes -Correct Side, Site, Position Yes -Correct Procedure Yes -Procedure Performed Yes -Type of Procedure Debridement -Clinical Debridement Subcutaneous -Tissue Removed Subcutaneous -Post Debridement (cm) - Length 1.1 -Post Debridement (cm) - Width 1.2 -Post Debridement (cm) - Depth 0.3 -Total Square (Post) (cm) 1.32 -Area of Debridement (cm) - Length 1.1 -Area of Debridement (cm) - Width 1.2 -Total Square (Area) (cm) 1.32 -Tunneling No -Undermining/Tunneling No -Circular Undermining No -Wound/Ulcer Outcome Not Healed -Ulcer Cleansing Rinsed/ Irrigated with Saline -Foul Odor after Cleansing No -Bioengineered Tissue No -Bleeding Controlled with Pressure -Offloading Yes -Type of Offloading Surgical Shoe -Treatment Response Procedure Tolerated Well -Debridement - Subq, 1st 20sq cm Yes #35 L Stump -Time 12:09 -Correct Patient Yes -Correct Side, Site, Position Yes -Correct Procedure Yes -Procedure Performed Yes -Type of Procedure Debridement -Clinical Debridement Subcutaneous -Tissue Removed Subcutaneous -Post Debridement (cm) - Length 1.2 -Post Debridement (cm) - Width 2.5 -Post Debridement (cm) - Depth 0.3 -Total Square (Post) (cm) 3.00 -Area of Debridement (cm) - Length 1.2 -Area of Debridement (cm) - Width 2.5 -Total Square (Area) (cm) 3.00 -Tunneling No -Undermining/Tunneling No -Circular Undermining No -Wound/Ulcer Outcome Not Healed -Ulcer Cleansing Rinsed/ Irrigated with Saline -Foul Odor after Cleansing No -Bioengineered Tissue No -Bleeding Controlled with Pressure -Offloading Yes -Type of Offloading Surgical Shoe -Treatment Response Procedure Tolerated Well -Debridement - Subq, 1st 20sq cm No #42- R MEDIAL FOOT -Time 12:11 -Correct Patient Yes -Correct Side, Site, Position Yes -Correct Procedure Yes -Procedure Performed Yes -Type of Procedure Debridement -Clinical Debridement Subcutaneous -Tissue Removed Subcutaneous -Post Debridement (cm) - Length 0.5 -Post Debridement (cm) - Width 1.1 -Post Debridement (cm) - Depth 0.5 -Total Square (Post) (cm) 0.55 -Area of Debridement (cm) - Length 0.5 -Area of Debridement (cm) - Width 1.1 -Total Square (Area) (cm) 0.55 -Tunneling No -Undermining/Tunneling No -Circular Undermining No -Wound/Ulcer Outcome Not Healed -Ulcer Cleansing Rinsed/ Irrigated with Saline -Foul Odor after Cleansing No -Bioengineered Tissue No -Bleeding Controlled with Pressure -Offloading Yes -Type of Offloading Surgical Shoe -Treatment Response Procedure Tolerated Well -Debridement - Subq, 1st 20sq cm No #37-right 2nd toe -Time 12:11 -Correct Patient Yes -Correct Side, Site, Position Yes -Correct Procedure Yes -Procedure Performed Yes -Type of Procedure Debridement -Clinical Debridement Subcutaneous -Tissue Removed Subcutaneous -Post Debridement (cm) - Length 1.3 -Post Debridement (cm) - Width 1.3 -Post Debridement (cm) - Depth 0.1 -Total Square (Post) (cm) 1.69 -Area of Debridement (cm) - Length 1.3 -Area of Debridement (cm) - Width 1.3 -Total Square (Area) (cm) 1.69 -Tunneling No -Undermining/Tunneling No -Circular Undermining No -Wound/Ulcer Outcome Not Healed -Ulcer Cleansing Rinsed/ Irrigated with Saline -Foul Odor after Cleansing No -Bioengineered Tissue No -Bleeding Controlled with Pressure -Offloading Yes -Type of Offloading Surgical Shoe -Treatment Response Procedure Tolerated Well -Debridement - Subq, 1st 20sq cm No Pain Scale: 0-10 Numeric Is Patient Pain Free? Yes WC - Nurse 3 - General Ulcer D/C NN Start: 02/15/20 11:57 Freq: Status: Active Protocol: Activity Type Activity Date Activity User E-Sign Co-Sign Detail Recorded Client Recorded Date Recorded By Document 02/15/20 12:19 NORRIS [id number] 02/15/20 12:21 NORRIS 02/15/20 12:19 Wound Care Nurse 3 39-right lateral foot -Ulcer Cleansing Rinsed/ Irrigated with Saline -Foul Odor after Cleansing No -Primary Dressing Applied Fibracol Plus 4x4 -Primary Dressing Covered/Secured with Dry Gauze & Roll Gauze, Secured with Tape -Fibracol Plus 4x4 1 #35 L Stump -Ulcer Cleansing Rinsed/ Irrigated with Saline -Foul Odor after Cleansing No -Primary Dressing Applied Fibracol Plus 4x4 -Primary Dressing Covered/Secured with Dry Gauze & Roll Gauze, Secured with Tape -Fibracol Plus 4x4 0 #42- R MEDIAL FOOT -Ulcer Cleansing Rinsed/ Irrigated with Saline -Foul Odor after Cleansing No -Primary Dressing Applied Fibracol Plus 4x4 -Primary Dressing Covered/Secured with Dry Gauze & Roll Gauze, Secured with Tape -Fibracol Plus 4x4 0 #37-right 2nd toe -Ulcer Cleansing Rinsed/ Irrigated with Saline -Foul Odor after Cleansing No -Primary Dressing Applied Fibracol Plus 4x4 -Primary Dressing Covered/Secured with Dry Gauze & Roll Gauze, Secured with Tape -Fibracol Plus 4x4 0 Right -Other single tubigrip Pain Scale: 0-10 Numeric Is Patient Pain Free? Yes WC - Visit Discharge Discharge Condition Stable Ambulatory Status Wheelchair Transportation private transportation Medication Reconcilliation completed & Yes provided to patient/care provider Clinical Summary of Care Provided Yes Wound debrided: leg stump , anterior Laterality: Left Wound Grade/Stage: grade (prior surgical site) Type of Debridement: Excisional debridement Anesthesia Used: 4% Lidocaine Solution Depth: in the subcutaneous layer Percentage of wound debrided: 100 Instrument Used: #15 blade Tissue Removed: fibrous, devitalized subcutaneous, biofilm, slough Severity: Fat Layer Exposed Amount of bleeding with debridement: Mild Bleeding Controlled with: Pressure Patient tolerated procedure well - Additional Wound Wound debrided: plantar medial foot, plantar lateral foot, dorsal 2nd toe Laterality: Right Wound Grade/Stage: grade 1 Type of Debridement: Excisional debridement Anesthesia Used: 5% Lidocaine Gel Depth: in the subcutaneous layer Percentage of wound debrided: 100 Instrument Used: #15 blade Tissue Removed: fibrous, devitalized subcutaneous, biofilm, slough Severity: Fat Layer Exposed Amount of bleeding with debridement: Mild Bleeding Controlled with: Pressure Patient tolerated procedure: Patient tolerated procedure well Assessment/Plan Assessment: Open surgical wound anterior aspect left BKA stump. Peripheral vascular disease. Diabetes with neuropathy. Right second toe ulcer, jerez grade 1, no infection. Right plantar lateral forefoot ulcer, jerez grade 1, no infection. Right plantar medial forefoot ulcer, jerez grade 1, no infection Plan: I reviewed and discussed his case. For the anterior aspect left BKA stump, will continue Fibracol (Aquacel Ag due to Fibracol shortage currently) dressing changes daily. His ulcers to his right foot are noted. All bilateral lower extremity ulcer sites were debrided as noted in the clinical panel. To wash daily with soap and water. To change dressing with Aquacel Ag on the right foot also. To keep pressure off of the ulcer sites and a surgical shoe with heel weightbearing. To ambulate with his potential surgical shoe in place if able to. To continue work with home physical therapy. To continue to optimize healing with improved glycemic index, continued weight reduction, and well-balanced [employer] nutrients. He was reassured no local signs of infection are noted today. His white blood cell count was 7.62 during his recent hospital admission before discharge. His hemoglobin A1c was 7.3%. To continue with edema management including his compression wraps and also lymphedema pumps. To return to clinic in 1 to 2 weeks or call sooner if you have any questions or concerns.
[2020-02-22 10:59] VITALS: BP 189/72; PULSE 69; RESP 20; TEMP 35.8; BMI 47.9
--- NOTE | 2020-02-22 12:24 | PCM.WC.PN ---
(1) Ulcer of left lower extremity with fat layer exposed Status: Chronic Code(s): L97.922 - Non-pressure chronic ulcer of unspecified part of left lower leg with fat layer exposed (2) Ulcer of right foot with fat layer exposed Status: Chronic Code(s): L97.512 - Non-pressure chronic ulcer of other part of right foot with fat layer exposed (3) Diabetes mellitus with polyneuropathy Status: Chronic Qualifiers: Code(s): E11.42 - Type 2 diabetes mellitus with diabetic polyneuropathy (4) Nonhealing amputation stump Status: Chronic Code(s): T87.89 - Other complications of amputation stump (5) Obesity Status: Chronic Code(s): E66.9 - Obesity, unspecified (6) Walking difficulty due to ankle and foot Status: Chronic Code(s): R26.2 - Difficulty in walking, not elsewhere classified Type of Wound Date of Service: 02/22/20 Chief Complaint: Open surgical wound anterior aspect left BKA stump. Right second toe ulcer. Right plantar lateral foot ulcer. 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 He also has multiple right foot ulcers, and has been performing dressing changes as advised. He denies fever, chills, nausea, vomiting. He denies redness or odor. He has been trying to offload and keep his swelling reduced by wearing Tubigrip compression dressings. He denies redness or odor. He is ambulating in a motorized scooter. Progress of Wound: Left below-knee amputation with ulcer stable. Stable right foot ulcers - Physical Exam Vital Signs Temp Pulse Resp BP 96.4 F L 69 20 H 189/72 H 02/22/20 10:59 02/22/20 10:59 02/22/20 10:59 02/22/20 10:59 General: Alert, Oriented x3, Cooperative HEENT: Atraumatic Extremities: No cyanosis, Capillary Refill Less than 3 Seconds, No Calf Tenderness, Diminished Peripheral Pulses, Edema Skin: Ulcer/ Wound - No purulence, erythema, streaking, odor, infection. Per the lateralization is going to the plantar medial and plantar lateral foot ulcers. There is also some proximal peripheral epithelialization noted to the dorsal second toe ulcer over the distal aspect remains devitalized w/ pressure concern, - Wound Measurements and Assessment WC - Nurse 1 - General Ulcer Measurement Start: 02/15/20 11:57 Freq: Status: Active Protocol: Activity Type Activity Date Activity User E-Sign Co-Sign Detail Recorded Client Recorded Date Recorded By Document 02/22/20 10:59 DL [id number] 02/22/20 11:10 DL 02/22/20 10:59 Wound Center Nurse 1 [Ulcer Assessment] 39-right lateral foot -Current Size (cm) - Length 0.6 -Current Size (cm) - Width 0.5 -Current Size (cm) - Depth 0.1 -Total Square Cm 0.30 -Photo Taken No -Exudate Amt None Present -Wound Margin Thickened -Granulation Amt Small (1-33%) -Granulation Quality [place] -Necrosis Amt Small (1-33%) -Necrotic Tissue Type Adherent Slough -Structure Exposed N/A -Texture (Susy-wound Skin Appearance) Scarring -Moisture (Susy-wound Skin Appearance Dry/Scaly ) -Color (Susy-wound Skin Appearance) Hemosiderin Staining -Temperature (Susy-wound Skin No Abnormality Appearance) (Pt Warm) -Tenderness on Palpation (Susy-wound No Skin Appearance) -Ulcer Cleansing Wound Cleanser -Foul Odor after Cleansing No -Anesthetic Used 4% Lidocaine Solution #35 L Stump -Current Size (cm) - Length 2.5 -Current Size (cm) - Width 1 -Current Size (cm) - Depth 0.2 -Total Square Cm 2.5 -Photo Taken No -Exudate Amt Small -Exudate Type Serosanguineous -Wound Margin Distinct, Outline Attached -Granulation Amt Large (67-100%) -Granulation Quality [place] -Necrosis Amt Small (1-33%) -Necrotic Tissue Type Adherent Slough -Structure Exposed N/A -Texture (Susy-wound Skin Appearance) Scarring -Moisture (Susy-wound Skin Appearance Dry/Scaly ) -Color (Susy-wound Skin Appearance) Hemosiderin Staining -Temperature (Susy-wound Skin No Abnormality Appearance) (Pt Warm) -Tenderness on Palpation (Susy-wound No Skin Appearance) -Ulcer Cleansing Wound Cleanser -Foul Odor after Cleansing No -Anesthetic Used 4% Lidocaine Solution #42- R MEDIAL FOOT -Current Size (cm) - Length 2 -Current Size (cm) - Width 0.5 -Current Size (cm) - Depth 0.1 -Total Square Cm 1.0 -Photo Taken No -Exudate Amt Small -Exudate Type Serosanguineous -Wound Margin Distinct, Outline Attached -Granulation Amt Medium (34-66%) -Granulation Quality [place],Red -Necrosis Amt Medium (34-66%) -Necrotic Tissue Type Adherent Slough -Structure Exposed N/A -Texture (Susy-wound Skin Appearance) Scarring -Moisture (Susy-wound Skin Appearance Dry/Scaly ) -Color (Susy-wound Skin Appearance) Hemosiderin Staining -Temperature (Susy-wound Skin No Abnormality Appearance) (Pt Warm) -Tenderness on Palpation (Susy-wound No Skin Appearance) -Ulcer Cleansing Wound Cleanser -Foul Odor after Cleansing Yes -Anesthetic Used 4% Lidocaine Solution #37-right 2nd toe -Current Size (cm) - Length 0.1 -Current Size (cm) - Width 0.1 -Current Size (cm) - Depth 0.1 -Total Square Cm 0.01 -Photo Taken No -Exudate Amt None Present -Wound Margin Thickened -Granulation Amt None Present (0 %) -Necrosis Amt Large (67-100%) -Necrotic Tissue Type Adherent Slough -Structure Exposed N/A -Texture (Susy-wound Skin Appearance) Localized Edema ,Scarring -Moisture (Susy-wound Skin Appearance Dry/Scaly ) -Color (Susy-wound Skin Appearance) Hemosiderin Staining -Temperature (Susy-wound Skin No Abnormality Appearance) (Pt Warm) -Tenderness on Palpation (Susy-wound No Skin Appearance) -Ulcer Cleansing Wound Cleanser -Foul Odor after Cleansing No -Anesthetic Used 4% Lidocaine Solution [Edema Assessment] -Right Calf (cm) 43.4 -Right Ankle (cm) 29 WC - Nurse 2 - General Ulcer CM Notes Start: 02/15/20 11:57 Freq: Status: Active Protocol: Activity Type Activity Date Activity User E-Sign Co-Sign Detail Recorded Client Recorded Date Recorded By Document 02/22/20 11:24 NORRIS [id number] 02/22/20 11:35 NORRIS 02/22/20 11:24 Wound Center Nurse 2 [Procedure/Treatment] 39-right lateral foot -Time 11:25 -Correct Patient Yes -Correct Side, Site, Position Yes -Correct Procedure Yes -Procedure Performed Yes -Type of Procedure Debridement -Clinical Debridement Subcutaneous -Tissue Removed Subcutaneous -Post Debridement (cm) - Length 0.6 -Post Debridement (cm) - Width 0.6 -Post Debridement (cm) - Depth 0.1 -Total Square (Post) (cm) 0.36 -Area of Debridement (cm) - Length 0.6 -Area of Debridement (cm) - Width 0.6 -Total Square (Area) (cm) 0.36 -Tunneling No -Undermining/Tunneling No -Circular Undermining No -Wound/Ulcer Outcome Not Healed -Ulcer Cleansing Rinsed/ Irrigated with Saline -Foul Odor after Cleansing No -Bioengineered Tissue No -Bleeding Controlled with Pressure,Silver Nitrate -Offloading No -Treatment Response Procedure Tolerated Well -Debridement - Subq, 1st 20sq cm No #35 L Stump -Time 11:25 -Correct Patient Yes -Correct Side, Site, Position Yes -Correct Procedure Yes -Procedure Performed Yes -Type of Procedure Debridement -Clinical Debridement Subcutaneous -Tissue Removed Subcutaneous -Post Debridement (cm) - Length 2.5 -Post Debridement (cm) - Width 1.1 -Post Debridement (cm) - Depth 0.2 -Total Square (Post) (cm) 2.75 -Area of Debridement (cm) - Length 2.5 -Area of Debridement (cm) - Width 1.1 -Total Square (Area) (cm) 2.75 -Tunneling No -Undermining/Tunneling No -Circular Undermining No -Wound/Ulcer Outcome Not Healed -Ulcer Cleansing Rinsed/ Irrigated with Saline -Foul Odor after Cleansing No -Bioengineered Tissue No -Bleeding Controlled with Pressure -Offloading Yes -Type of Offloading Surgical Shoe -Treatment Response Procedure Tolerated Well -Debridement - Subq, 20sq cm No #42- R MEDIAL FOOT -Time 11:27 -Correct Patient Yes -Correct Side, Site, Position Yes -Correct Procedure Yes -Procedure Performed Yes -Type of Procedure Debridement -Clinical Debridement Subcutaneous -Tissue Removed Subcutaneous -Post Debridement (cm) - Length 2.1 -Post Debridement (cm) - Width 0.6 -Post Debridement (cm) - Depth 0.1 -Total Square (Post) (cm) 1.26 -Area of Debridement (cm) - Length 2.1 -Area of Debridement (cm) - Width 0.6 -Total Square (Area) (cm) 1.26 -Tunneling No -Undermining/Tunneling No -Circular Undermining No -Wound/Ulcer Outcome Not Healed -Ulcer Cleansing Rinsed/ Irrigated with Saline -Foul Odor after Cleansing No -Bioengineered Tissue No -Bleeding Controlled with Pressure -Offloading Yes -Type of Offloading Surgical Shoe -Treatment Response Procedure Tolerated Well -Debridement - Subq, 1st 20sq cm Yes #37-right 2nd toe -Time 11:28 -Correct Patient Yes -Correct Side, Site, Position Yes -Correct Procedure Yes -Procedure Performed Yes -Type of Procedure Debridement -Clinical Debridement Subcutaneous -Tissue Removed Subcutaneous -Post Debridement (cm) - Length 2.5 -Post Debridement (cm) - Width 1.5 -Post Debridement (cm) - Depth 0.2 -Total Square (Post) (cm) 3.75 -Area of Debridement (cm) - Length 2.5 -Area of Debridement (cm) - Width 1.5 -Total Square (Area) (cm) 3.75 -Tunneling No -Undermining/Tunneling No -Circular Undermining No -Wound/Ulcer Outcome Not Healed -Ulcer Cleansing Rinsed/ Irrigated with Saline -Foul Odor after Cleansing No -Bioengineered Tissue No -Bleeding Controlled with Pressure -Offloading Yes -Type of Offloading Surgical Shoe -Treatment Response Procedure Tolerated Well -Debridement - Subq, 1st 20sq cm No [See Physician Procedure note for Specifics] WC - Nurse 3 - General Ulcer D/C NN Start: 02/15/20 11:57 Freq: Status: Active Protocol: Activity Type Activity Date Activity User E-Sign Co-Sign Detail Recorded Client Recorded Date Recorded By Document 02/22/20 11:35 NORRIS [id number] 02/22/20 11:36 NORRIS 02/22/20 11:35 Wound Care Nurse 3 [Wound Dressing] 39-right lateral foot -Ulcer Cleansing Rinsed/ Irrigated with Saline -Foul Odor after Cleansing No -Primary Dressing Applied Fibracol Plus 4x4 -Primary Dressing Covered/Secured Dry Gauze & with Roll Gauze, Secured with Tape -Fibracol Plus 4x4 1 #35 L Stump -Ulcer Cleansing Rinsed/ Irrigated with Saline -Foul Odor after Cleansing No -Primary Dressing Applied Fibracol Plus 4x4 -Primary Dressing Covered/Secured Dry Gauze, with Secured with Tape -Fibracol Plus 4x4 0 #42- R MEDIAL FOOT -Ulcer Cleansing Rinsed/ Irrigated with Saline -Foul Odor after Cleansing No -Primary Dressing Applied Fibracol Plus 4x4 -Primary Dressing Covered/Secured Dry Gauze & with Roll Gauze, Secured with Tape -Fibracol Plus 4x4 0 #37-right 2nd toe -Ulcer Cleansing Rinsed/ Irrigated with Saline -Foul Odor after Cleansing No -Primary Dressing Applied Fibracol Plus 4x4 -Primary Dressing Covered/Secured Dry Gauze & with Roll Gauze, Secured with Tape -Fibracol Plus 4x4 0 [Compression Applied] Right -Tubular Bandage Double Layer -Size of Tubigrip Used Size D -Size D ($) 0 Pain Scale: 0-10 Numeric [Pain] -Is Patient Pain Free? Yes - Visit Discharge [Visit Discharge Information] -Discharge Condition Stable -Ambulatory Status Wheelchair -Transportation Private Auto -Medication Reconcilliation completed Yes & provided to patient/care provider -Clinical Summary of Care Provided Yes Musculoskeletal: No Tenderness to Palpation of Joints or Extremities, Muscle Wasting, - - No fluctuance or bogginess on palpation. Compartments to the right lower extremity remain soft. Left below-knee amputation Neurological: - - Lack of normal epicritic sensation to light touch is consistent with his neuropathy status Psych/Mental Status: Normal Affect, Appropriate Debridement Note Post-Debridement Measurements/Treatment - Nurse 2 - General Ulcer CM Notes Start: 02/15/20 11:57 Freq: Status: Active Protocol: Activity Type Activity Date Activity User E-Sign Co-Sign Detail Recorded Client Recorded Date Recorded By Document 02/15/20 12:08 [id number] 02/15/20 12:12 Document 02/22/20 11:24 [id number] 02/22/20 11:35 02/15/20 02/22/20 12:08 11:24 Wound Center Nurse 2 39-right lateral foot -Time 12:08 11:25 -Correct Patient Yes Yes -Correct Side, Site, Position Yes Yes -Correct Procedure Yes Yes -Procedure Performed Yes Yes -Type of Procedure Debridement Debridement -Clinical Debridement Subcutaneous Subcutaneous -Tissue Removed Subcutaneous Subcutaneous -Post Debridement (cm) - Length 1.1 0.6 -Post Debridement (cm) - Width 1.2 0.6 -Post Debridement (cm) - Depth 0.3 0.1 -Total Square (Post) (cm) 1.32 0.36 -Area of Debridement (cm) - Length 1.1 0.6 -Area of Debridement (cm) - Width 1.2 0.6 -Total Square (Area) (cm) 1.32 0.36 -Tunneling No No -Undermining/Tunneling No No -Circular Undermining No No -Wound/Ulcer Outcome Not Healed Not Healed -Ulcer Cleansing Rinsed/ Rinsed/ Irrigated with Irrigated with Saline Saline -Foul Odor after Cleansing No No -Bioengineered Tissue No No -Bleeding Controlled with Pressure Pressure,Silver Nitrate -Offloading Yes No -Type of Offloading Surgical Shoe -Treatment Response Procedure Procedure Tolerated Well Tolerated Well -Debridement - Subq, 1st 20sq cm Yes No #35 L Stump -Time 12:09 11:25 -Correct Patient Yes Yes -Correct Side, Site, Position Yes Yes -Correct Procedure Yes Yes -Procedure Performed Yes Yes -Type of Procedure Debridement Debridement -Clinical Debridement Subcutaneous Subcutaneous -Tissue Removed Subcutaneous Subcutaneous -Post Debridement (cm) - Length 1.2 2.5 -Post Debridement (cm) - Width 2.5 1.1 -Post Debridement (cm) - Depth 0.3 0.2 -Total Square (Post) (cm) 3.00 2.75 -Area of Debridement (cm) - Length 1.2 2.5 -Area of Debridement (cm) - Width 2.5 1.1 -Total Square (Area) (cm) 3.00 2.75 -Tunneling No No -Undermining/Tunneling No No -Circular Undermining No No -Wound/Ulcer Outcome Not Healed Not Healed -Ulcer Cleansing Rinsed/ Rinsed/ Irrigated with Irrigated with Saline Saline -Foul Odor after Cleansing No No -Bioengineered Tissue No No -Bleeding Controlled with Pressure Pressure -Offloading Yes Yes -Type of Offloading Surgical Shoe Surgical Shoe -Treatment Response Procedure Procedure Tolerated Well Tolerated Well -Debridement - Subq, 1st 20sq cm No No #42- R MEDIAL FOOT -Time 12: 11:27 -Correct Patient Yes Yes -Correct Side, Site, Position Yes Yes -Correct Procedure Yes Yes -Procedure Performed Yes Yes -Type of Procedure Debridement Debridement -Clinical Debridement Subcutaneous Subcutaneous -Tissue Removed Subcutaneous Subcutaneous -Post Debridement (cm) - Length 0.5 2.1 -Post Debridement (cm) - Width 1.1 0.6 -Post Debridement (cm) - Depth 0.5 0.1 -Total Square (Post) (cm) 0.55 1.26 -Area of Debridement (cm) - Length 0.5 2.1 -Area of Debridement (cm) - Width 1.1 0.6 -Total Square (Area) (cm) 0.55 1.26 -Tunneling No No -Undermining/Tunneling No No -Circular Undermining No No -Wound/Ulcer Outcome Not Healed Not Healed -Ulcer Cleansing Rinsed/ Rinsed/ Irrigated with Irrigated with Saline Saline -Foul Odor after Cleansing No No -Bioengineered Tissue No No -Bleeding Controlled with Pressure Pressure -Offloading Yes Yes -Type of Offloading Surgical Shoe Surgical Shoe -Treatment Response Procedure Procedure Tolerated Well Tolerated Well -Debridement - Subq, 1st 20sq cm No Yes #37-right 2nd toe -Time 12:11 11:28 -Correct Patient Yes Yes -Correct Side, Site, Position Yes Yes -Correct Procedure Yes Yes -Procedure Performed Yes Yes -Type of Procedure Debridement Debridement -Clinical Debridement Subcutaneous Subcutaneous -Tissue Removed Subcutaneous Subcutaneous -Post Debridement (cm) - Length 1.3 2.5 -Post Debridement (cm) - Width 1.3 1.5 -Post Debridement (cm) - Depth 0.1 0.2 -Total Square (Post) (cm) 1.69 3.75 -Area of Debridement (cm) - Length 1.3 2.5 -Area of Debridement (cm) - Width 1.3 1.5 -Total Square (Area) (cm) 1.69 3.75 -Tunneling No No -Undermining/Tunneling No No -Circular Undermining No No -Wound/Ulcer Outcome Not Healed Not Healed -Ulcer Cleansing Rinsed/ Rinsed/ Irrigated with Irrigated with Saline Saline -Foul Odor after Cleansing No No -Bioengineered Tissue No No -Bleeding Controlled with Pressure Pressure -Offloading Yes Yes -Type of Offloading Surgical Shoe Surgical Shoe -Treatment Response Procedure Procedure Tolerated Well Tolerated Well -Debridement - Subq, 1st 20sq cm No No Pain Scale: 0-10 Numeric Is Patient Pain Free? Yes WC - Nurse 3 - General Ulcer D/C NN Start: 02/15/20 11:57 Freq: Status: Active Protocol: Activity Type Activity Date Activity User E-Sign Co-Sign Detail Recorded Client Recorded Date Recorded By Document 02/15/20 12:19 [id number] 02/15/20 12:21 JF Document 02/22/20 11:35 [id number] 02/22/20 11:36 02/15/20 02/22/20 12:19 11:35 Wound Care Nurse 3 39-right lateral foot -Ulcer Cleansing Rinsed/ Rinsed/ Irrigated with Irrigated with Saline Saline -Foul Odor after Cleansing No No -Primary Dressing Applied Fibracol Plus Fibracol Plus 4x4 4x4 -Primary Dressing Covered/Secured with Dry Gauze & Dry Gauze & Roll Gauze, Roll Gauze, Secured with Secured with Tape Tape -Fibracol Plus 4x4 1 1 #35 L Stump -Ulcer Cleansing Rinsed/ Rinsed/ Irrigated with Irrigated with Saline Saline -Foul Odor after Cleansing No No -Primary Dressing Applied Fibracol Plus Fibracol Plus 4x4 4x4 -Primary Dressing Covered/Secured with Dry Gauze & Dry Gauze, Roll Gauze, Secured with Secured with Tape Tape -Fibracol Plus 4x4 0 0 #42- R MEDIAL FOOT -Ulcer Cleansing Rinsed/ Rinsed/ Irrigated with Irrigated with Saline Saline -Foul Odor after Cleansing No No -Primary Dressing Applied Fibracol Plus Fibracol Plus 4x4 4x4 -Primary Dressing Covered/Secured with Dry Gauze & Dry Gauze & Roll Gauze, Roll Gauze, Secured with Secured with Tape Tape -Fibracol Plus 4x4 0 0 #37-right 2nd toe -Ulcer Cleansing Rinsed/ Rinsed/ Irrigated with Irrigated with Saline Saline -Foul Odor after Cleansing No No -Primary Dressing Applied Fibracol Plus Fibracol Plus 4x4 4x4 -Primary Dressing Covered/Secured with Dry Gauze & Dry Gauze & Roll Gauze, Roll Gauze, Secured with Secured with Tape Tape -Fibracol Plus 4x4 0 0 Right -Tubular Bandage Double Layer -Size of Tubigrip Used Size D -Size D ($) 0 -Other single tubigrip Pain Scale: 0-10 Numeric Is Patient Pain Free? Yes Yes WC - Visit Discharge Discharge Condition Stable Stable Ambulatory Status Wheelchair Wheelchair Transportation private Private Auto transportation Medication Reconcilliation completed & Yes Yes provided to patient/care provider Clinical Summary of Care Provided Yes Yes Wound debrided: anterior leg (at bka stump) Laterality: Left Wound Grade/Stage: grade 1 Type of Debridement: Excisional debridement Anesthesia Used: 5% Lidocaine Gel Depth: in the subcutaneous layer Percentage of wound debrided: 100 Instrument Used: #15 blade Tissue Removed: fibrous, devitalized subcutaneous, biofilm, slough Severity: Fat Layer Exposed Amount of bleeding with debridement: Mild Bleeding Controlled with: Pressure Patient tolerated procedure well - Additional Wound Wound debrided: plantar medial foot, dorsal 2 toe, lateral forefoot Laterality: Right Wound Grade/Stage: grade 1 Type of Debridement: Excisional debridement Anesthesia Used: 5% Lidocaine Gel Depth: in the subcutaneous layer Percentage of wound debrided: 100 Instrument Used: #15 blade Tissue Removed: fibrous, devitalized subcutaneous, biofilm, slough Severity: Fat Layer Exposed Amount of bleeding with debridement: Mild Bleeding Controlled with: Pressure Patient tolerated procedure: Patient tolerated procedure well Assessment/Plan Active Problems Nonhealing amputation stump (Chronic) Walking difficulty due to ankle and foot (Chronic) Ulcer of left lower extremity with fat layer exposed (Chronic) Ulcer of right foot with fat layer exposed (Chronic) Obesity (Chronic) Diabetes mellitus with polyneuropathy (Chronic) Assessment: Open surgical wound anterior aspect left BKA stump. Peripheral vascular disease. Diabetes with neuropathy. Right second toe ulcer, jerez grade 1, no infection. Right plantar lateral forefoot ulcer, jerez grade 1, no infection. Right plantar medial forefoot ulcer, jerez grade 1, no infection Plan: I reviewed and discussed his case. He was reassured no signs of infection are noted today. For the anterior aspect left BKA stump, will continue Fibracol (Aquacel Ag due to Fibracol shortage currently) dressing changes daily. His ulcers to his right foot are noted. All bilateral lower extremity ulcer sites were debrided as noted in the clinical panel. To wash daily with soap and water. To change dressing with Aquacel Ag on the right foot also. To keep pressure off of the ulcer sites and a surgical shoe with heel weightbearing. To ambulate with his potential surgical shoe in place if able to. His left foot surgical shoe was adjusted to more proximal position to ensure mechanical pressure is not applied to the second toe where his ulcer appears to be more devitalized this past week. To continue work with home physical therapy. To continue to optimize healing with improved glycemic index, continued weight reduction, and well-balanced [employer] nutrients. He was reassured no local signs of infection are noted today. His white blood cell count was 7.62 during his recent hospital admission before discharge. His hemoglobin A1c was 7.3%. To continue with edema management including his compression wraps and also lymphedema pumps. To return to clinic in 1 to 2 weeks or call sooner if you have any questions or concerns.
[2020-02-29 11:17] VITALS: BMI 47.9
--- NOTE | 2020-02-29 13:28 | PCM.WC.PN ---
(1) Ulcer of left lower extremity with fat layer exposed Status: Chronic Code(s): L97.922 - Non-pressure chronic ulcer of unspecified part of left lower leg with fat layer exposed (2) Ulcer of right foot with fat layer exposed Status: Chronic Code(s): L97.512 - Non-pressure chronic ulcer of other part of right foot with fat layer exposed (3) Diabetes mellitus with polyneuropathy Status: Chronic Qualifiers: Code(s): E11.42 - Type 2 diabetes mellitus with diabetic polyneuropathy (4) Nonhealing amputation stump Status: Chronic Code(s): T87.89 - Other complications of amputation stump (5) Obesity Status: Chronic Code(s): E66.9 - Obesity, unspecified (6) Walking difficulty due to ankle and foot Status: Chronic Code(s): R26.2 - Difficulty in walking, not elsewhere classified Type of Wound Date of Service: 02/29/20 Chief Complaint: Open surgical wound anterior aspect left BKA stump. Right second toe ulcer. Right plantar lateral foot ulcer. 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 He also has multiple right foot ulcers, and has been performing dressing changes as advised. He denies fever, chills, nausea, vomiting. He denies redness or odor. He has been trying to offload and keep his swelling reduced by wearing Tubigrip compression dressings. He denies redness or odor. He is ambulating in a motorized scooter. Progress of Wound: Left below-knee amputation with ulcer stable. Stable right foot ulcers - Physical Exam Vital Signs Temp Pulse Resp BP 96.4 F L 69 20 H 189/72 H 02/22/20 10:59 02/22/20 10:59 02/22/20 10:59 02/22/20 10:59 General: Alert, Oriented x3, Cooperative, No apparent distress Extremities: No cyanosis, Capillary Refill Less than 3 Seconds, No Calf Tenderness, Diminished Peripheral Pulses, Edema Skin: Ulcer/ Wound - No purulence, erythema, streaking, odor, infection bilateral, eschar distal right second toes abraded today without any exposed deeper bone or maceration necrosis, - - Skin is hairless and atrophic Wound Measurements and Assessment WC - Nurse 1 - General Ulcer Measurement Start: 02/15/20 11:57 Freq: Status: Active Protocol: Activity Type Activity Date Activity User E-Sign Co-Sign Detail Recorded Client Recorded Date Recorded By Document 02/29/20 11:17 CA [id number] 02/29/20 11:38 CA 02/29/20 11:17 Wound Center Nurse 1 [Ulcer Assessment] 39-right lateral foot -Current Size (cm) - Length 1.5 -Current Size (cm) - Width 1 -Current Size (cm) - Depth 0.2 -Total Square Cm 1.5 -Photo Taken No -Exudate Amt Small -Exudate Type Serosanguineous -Wound Margin Thickened -Granulation Amt Medium (34-66%) -Granulation Quality Red -Necrosis Amt Medium (34-66%) -Necrotic Tissue Type Adherent Slough -Texture (Susy-wound Skin Appearance) Scarring -Moisture (Susy-wound Skin Appearance Dry/Scaly ) -Color (Susy-wound Skin Appearance) Hemosiderin Staining -Temperature (Susy-wound Skin No Abnormality Appearance) (Pt Warm) -Tenderness on Palpation (Susy-wound No Skin Appearance) -Ulcer Cleansing Wound Cleanser -Foul Odor after Cleansing No -Anesthetic Used 4% Lidocaine Solution #35 L Stump -Current Size (cm) - Length 3 -Current Size (cm) - Width 1.5 -Current Size (cm) - Depth 0.2 -Total Square Cm 4.5 -Photo Taken No -Exudate Amt Small -Exudate Type Serosanguineous -Wound Margin Thickened -Granulation Amt Small (1-33%) -Granulation Quality Pale,[place] -Necrosis Amt Large (67-100%) -Necrotic Tissue Type Adherent Slough -Structure Exposed N/A -Texture (Susy-wound Skin Appearance) Scarring -Moisture (Susy-wound Skin Appearance Dry/Scaly ) -Color (Susy-wound Skin Appearance) Hemosiderin Staining -Temperature (Susy-wound Skin No Abnormality Appearance) (Pt Warm) -Tenderness on Palpation (Susy-wound No Skin Appearance) -Ulcer Cleansing Wound Cleanser -Foul Odor after Cleansing No -Anesthetic Used 4% Lidocaine Solution #42- R MEDIAL FOOT -Current Size (cm) - Length 1.5 -Current Size (cm) - Width 0.5 -Current Size (cm) - Depth 0.3 -Total Square Cm 0.75 -Photo Taken No -Exudate Amt Small -Exudate Type Serosanguineous -Wound Margin Thickened -Granulation Amt Medium (34-66%) -Granulation Quality [place],Red -Necrosis Amt Medium (34-66%) -Necrotic Tissue Type Adherent Slough -Structure Exposed N/A -Texture (Susy-wound Skin Appearance) Scarring -Moisture (Susy-wound Skin Appearance Dry/Scaly ) -Color (Susy-wound Skin Appearance) Hemosiderin Staining -Temperature (Susy-wound Skin No Abnormality Appearance) (Pt Warm) -Tenderness on Palpation (Susy-wound No Skin Appearance) -Ulcer Cleansing Wound Cleanser -Foul Odor after Cleansing No -Anesthetic Used 4% Lidocaine Solution #37-right 2nd toe -Current Size (cm) - Length 0.2 -Current Size (cm) - Width 0.2 -Current Size (cm) - Depth 0.1 -Total Square Cm 0.04 -Photo Taken No -Exudate Amt Small -Exudate Type Yellow/Green -Wound Margin Thickened -Granulation Amt Small (1-33%) -Granulation Quality [place] -Necrosis Amt Small (1-33%) -Necrotic Tissue Type Adherent Slough -Structure Exposed N/A -Texture (Susy-wound Skin Appearance) Localized Edema ,Scarring -Moisture (Susy-wound Skin Appearance Dry/Scaly ) -Color (Susy-wound Skin Appearance) Hemosiderin Staining -Temperature (Susy-wound Skin No Abnormality Appearance) (Pt Warm) -Tenderness on Palpation (Susy-wound No Skin Appearance) -Ulcer Cleansing Wound Cleanser -Foul Odor after Cleansing No -Anesthetic Used 4% Lidocaine Solution [Edema Assessment] -Right Calf (cm) 41 -Right Ankle (cm) 28.5 WC - Nurse 2 - General Ulcer CM Notes Start: 02/15/20 11:57 Freq: Status: Active Protocol: Activity Type Activity Date Activity User E-Sign Co-Sign Detail Recorded Client Recorded Date Recorded By Document 02/29/20 11:54 NORRIS [id number] 02/29/20 12:00 NORRIS 02/29/20 11:54 Wound Center Nurse 2 [Procedure/Treatment] 39-right lateral foot -Time 11:54 -Correct Patient Yes -Correct Side, Site, Position Yes -Correct Procedure Yes -Procedure Performed Yes -Type of Procedure Debridement -Clinical Debridement Subcutaneous -Tissue Removed Subcutaneous -Post Debridement (cm) - Length 1.5 -Post Debridement (cm) - Width 1.1 -Post Debridement (cm) - Depth 0.2 -Total Square (Post) (cm) 1.65 -Area of Debridement (cm) - Length 1.5 -Area of Debridement (cm) - Width 1.1 -Total Square (Area) (cm) 1.65 -Tunneling No -Undermining/Tunneling No -Circular Undermining No -Wound/Ulcer Outcome Not Healed -Ulcer Cleansing Rinsed/ Irrigated with Saline -Foul Odor after Cleansing No -Bioengineered Tissue No -Bleeding Controlled with Pressure -Offloading Yes -Type of Offloading Surgical Shoe -Treatment Response Procedure Tolerated Well -Debridement - Subq, 1st 20sq cm Yes #35 L Stump -Time 11:56 -Correct Patient Yes -Correct Side, Site, Position Yes -Correct Procedure Yes -Procedure Performed Yes -Type of Procedure Debridement -Clinical Debridement Subcutaneous -Tissue Removed Subcutaneous -Post Debridement (cm) - Length 1 -Post Debridement (cm) - Width 3 -Post Debridement (cm) - Depth 0.2 -Total Square (Post) (cm) 3 -Area of Debridement (cm) - Length 1 -Area of Debridement (cm) - Width 3 -Total Square (Area) (cm) 3 -Tunneling No -Undermining/Tunneling No -Circular Undermining No -Wound/Ulcer Outcome Not Healed -Ulcer Cleansing Rinsed/ Irrigated with Saline -Foul Odor after Cleansing No -Bioengineered Tissue No -Bleeding Controlled with Pressure -Offloading No -Treatment Response Procedure Tolerated Well -Debridement - Subq, 1st 20sq cm No #42- R MEDIAL FOOT -Time 11:57 -Correct Patient Yes -Correct Side, Site, Position Yes -Correct Procedure Yes -Procedure Performed Yes -Type of Procedure Debridement -Clinical Debridement Subcutaneous -Tissue Removed Subcutaneous -Post Debridement (cm) - Length 1.5 -Post Debridement (cm) - Width 0.5 -Post Debridement (cm) - Depth 0.2 -Total Square (Post) (cm) 0.75 -Area of Debridement (cm) - Length 1.5 -Area of Debridement (cm) - Width 0.5 -Total Square (Area) (cm) 0.75 -Tunneling No -Undermining/Tunneling No -Circular Undermining No -Wound/Ulcer Outcome Not Healed -Ulcer Cleansing Rinsed/ Irrigated with Saline -Foul Odor after Cleansing No -Bioengineered Tissue No -Bleeding Controlled with Pressure -Offloading Yes -Type of Offloading Surgical Shoe -Treatment Response Procedure Tolerated Well -Debridement - Subq, 1st 20sq cm No #37-right 2nd toe -Time 11:58 -Correct Patient Yes -Correct Side, Site, Position Yes -Correct Procedure Yes -Procedure Performed Yes -Type of Procedure Debridement -Clinical Debridement Subcutaneous -Tissue Removed Subcutaneous -Post Debridement (cm) - Length 3.2 -Post Debridement (cm) - Width 1.8 -Post Debridement (cm) - Depth 0.2 -Total Square (Post) (cm) 5.76 -Area of Debridement (cm) - Length 3.2 -Area of Debridement (cm) - Width 1.8 -Total Square (Area) (cm) 5.76 -Tunneling No -Undermining/Tunneling No -Circular Undermining No -Wound/Ulcer Outcome Not Healed -Ulcer Cleansing Rinsed/ Irrigated with Saline -Foul Odor after Cleansing No -Bioengineered Tissue No -Bleeding Controlled with Pressure -Offloading Yes -Type of Offloading Surgical Shoe -Treatment Response Procedure Tolerated Well -Debridement - Subq, 1st 20sq cm No [See Physician Procedure note for Specifics] Pain Scale: 0-10 Numeric [Pain] -Is Patient Pain Free? Yes WC - Nurse 3 - General Ulcer D/C NN Start: 02/15/20 11:57 Freq: Status: Active Protocol: Activity Type Activity Date Activity User E-Sign Co-Sign Detail Recorded Client Recorded Date Recorded By Document 02/29/20 12:07 [facility] [id number] 02/29/20 12:10 [facility] 02/29/20 12:07 Wound Care Nurse 3 [Wound Dressing] 39-right lateral foot -Ulcer Cleansing Rinsed/ Irrigated with Saline -Foul Odor after Cleansing No -Primary Dressing Applied Fibracol Plus 4x4 -Primary Dressing Covered/Secured Dry Gauze & with Roll Gauze, Secured with Tape -Other Covering abd -Fibracol Plus 4x4 1 #35 L Stump -Ulcer Cleansing Rinsed/ Irrigated with Saline -Foul Odor after Cleansing No -Primary Dressing Applied Fibracol Plus 4x4 -Primary Dressing Covered/Secured Dry Gauze & with Roll Gauze, Secured with Tape -Fibracol Plus 4x4 0 #42- R MEDIAL FOOT -Ulcer Cleansing Rinsed/ Irrigated with Saline -Foul Odor after Cleansing No -Primary Dressing Applied Fibracol Plus 4x4 -Primary Dressing Covered/Secured Dry Gauze & with Roll Gauze, Secured with Tape -Fibracol Plus 4x4 0 #37-right 2nd toe -Ulcer Cleansing Rinsed/ Irrigated with Saline -Foul Odor after Cleansing No -Primary Dressing Applied Fibracol Plus 4x4 -Primary Dressing Covered/Secured Dry Gauze & with Roll Gauze, Secured with Tape,Other -Other Covering abd -Fibracol Plus 4x4 0 [Compression Applied] Left -Other applied pts own tubigrip Right -Other farrow wrap [Post Procedure Tolerated] -Treatment Response Procedure Tolerated Well Pain Scale: 0-10 Numeric [Pain] -Is Patient Pain Free? Yes - Visit Discharge [Visit Discharge Information] -Discharge Condition Stable -Ambulatory Status Wheelchair -Transportation edison transit [Facility Notification] -Facility Type Home Health Musculoskeletal: Muscle Wasting, Tenderness, - - Left below-knee amputation. Motor scooter noted Neurological: - - Lack of epicritic sensation Psych/Mental Status: Normal Affect, Appropriate Debridement Note Post-Debridement Measurements/Treatment - Nurse 2 - General Ulcer CM Notes Start: 02/15/20 11:57 Freq: Status: Active Protocol: Activity Type Activity Date Activity User E-Sign Co-Sign Detail Recorded Client Recorded Date Recorded By Document 02/15/20 12:08 [id number] 02/15/20 12:12 Document 02/22/20 11:24 [id number] 02/22/20 11:35 Document 02/29/20 11:54 [id number] 02/29/20 12:00 02/15/20 02/22/20 02/29/20 12:08 11:24 11:54 Wound Center Nurse 2 39-right lateral foot -Time 12:08 11:25 11:54 -Correct Patient Yes Yes Yes -Correct Side, Site, Position Yes Yes Yes -Correct Procedure Yes Yes Yes -Procedure Performed Yes Yes Yes -Type of Procedure Debridement Debridement Debridement -Clinical Debridement Subcutaneous Subcutaneous Subcutaneous -Tissue Removed Subcutaneous Subcutaneous Subcutaneous -Post Debridement (cm) - Length 1.1 0.6 1.5 -Post Debridement (cm) - Width 1.2 0.6 1.1 -Post Debridement (cm) - Depth 0.3 0.1 0.2 -Total Square (Post) (cm) 1.32 0.36 1.65 -Area of Debridement (cm) - Length 1.1 0.6 1.5 -Area of Debridement (cm) - Width 1.2 0.6 1.1 -Total Square (Area) (cm) 1.32 0.36 1.65 -Tunneling No No No -Undermining/Tunneling No No No -Circular Undermining No No No -Wound/Ulcer Outcome Not Healed Not Healed Not Healed -Ulcer Cleansing Rinsed/ Rinsed/ Rinsed/ Irrigated with Irrigated with Irrigated with Saline Saline Saline -Foul Odor after Cleansing No No No -Bioengineered Tissue No No No -Bleeding Controlled with Pressure Pressure,Silver Pressure Nitrate -Offloading Yes No Yes -Type of Offloading Surgical Shoe Surgical Shoe -Treatment Response Procedure Procedure Procedure Tolerated Well Tolerated Well Tolerated Well -Debridement - Subq, 1st 20sq cm Yes No Yes #35 L Stump -Time 12:09 11:25 11:56 -Correct Patient Yes Yes Yes -Correct Side, Site, Position Yes Yes Yes -Correct Procedure Yes Yes Yes -Procedure Performed Yes Yes Yes -Type of Procedure Debridement Debridement Debridement -Clinical Debridement Subcutaneous Subcutaneous Subcutaneous -Tissue Removed Subcutaneous Subcutaneous Subcutaneous -Post Debridement (cm) - Length 1.2 2.5 1 -Post Debridement (cm) - Width 2.5 1.1 3 -Post Debridement (cm) - Depth 0.3 0.2 0.2 -Total Square (Post) (cm) 3.00 2.75 3 -Area of Debridement (cm) - Length 1.2 2.5 1 -Area of Debridement (cm) - Width 2.5 1.1 3 -Total Square (Area) (cm) 3.00 2.75 3 -Tunneling No No No -Undermining/Tunneling No No No -Circular Undermining No No No -Wound/Ulcer Outcome Not Healed Not Healed Not Healed -Ulcer Cleansing Rinsed/ Rinsed/ Rinsed/ Irrigated with Irrigated with Irrigated with Saline Saline Saline -Foul Odor after Cleansing No No No -Bioengineered Tissue No No No -Bleeding Controlled with Pressure Pressure Pressure -Offloading Yes Yes No -Type of Offloading Surgical Shoe Surgical Shoe -Treatment Response Procedure Procedure Procedure Tolerated Well Tolerated Well Tolerated Well -Debridement - Subq, 1st 20sq cm No No No #42- R MEDIAL FOOT -Time 12:11 11:27 11:57 -Correct Patient Yes Yes Yes -Correct Side, Site, Position Yes Yes Yes -Correct Procedure Yes Yes Yes -Procedure Performed Yes Yes Yes -Type of Procedure Debridement Debridement Debridement -Clinical Debridement Subcutaneous Subcutaneous Subcutaneous -Tissue Removed Subcutaneous Subcutaneous Subcutaneous -Post Debridement (cm) - Length 0.5 2.1 1.5 -Post Debridement (cm) - Width 1.1 0.6 0.5 -Post Debridement (cm) - Depth 0.5 0.1 0.2 -Total Square (Post) (cm) 0.55 1.26 0.75 -Area of Debridement (cm) - Length 0.5 2.1 1.5 -Area of Debridement (cm) - Width 1.1 0.6 0.5 -Total Square (Area) (cm) 0.55 1.26 0.75 -Tunneling No No No -Undermining/Tunneling No No No -Circular Undermining No No No -Wound/Ulcer Outcome Not Healed Not Healed Not Healed -Ulcer Cleansing Rinsed/ Rinsed/ Rinsed/ Irrigated with Irrigated with Irrigated with Saline Saline Saline -Foul Odor after Cleansing No No No -Bioengineered Tissue No No No -Bleeding Controlled with Pressure Pressure Pressure -Offloading Yes Yes Yes -Type of Offloading Surgical Shoe Surgical Shoe Surgical Shoe -Treatment Response Procedure Procedure Procedure Tolerated Well Tolerated Well Tolerated Well -Debridement - Subq, 1st 20sq cm No Yes No #37-right 2nd toe -Time 12:11 11:28 11:58 -Correct Patient Yes Yes Yes -Correct Side, Site, Position Yes Yes Yes -Correct Procedure Yes Yes Yes -Procedure Performed Yes Yes Yes -Type of Procedure Debridement Debridement Debridement -Clinical Debridement Subcutaneous Subcutaneous Subcutaneous -Tissue Removed Subcutaneous Subcutaneous Subcutaneous -Post Debridement (cm) - Length 1.3 2.5 3.2 -Post Debridement (cm) - Width 1.3 1.5 1.8 -Post Debridement (cm) - Depth 0.1 0.2 0.2 -Total Square (Post) (cm) 1.69 3.75 5.76 -Area of Debridement (cm) - Length 1.3 2.5 3.2 -Area of Debridement (cm) - Width 1.3 1.5 1.8 -Total Square (Area) (cm) 1.69 3.75 5.76 -Tunneling No No No -Undermining/Tunneling No No No -Circular Undermining No No No -Wound/Ulcer Outcome Not Healed Not Healed Not Healed -Ulcer Cleansing Rinsed/ Rinsed/ Rinsed/ Irrigated with Irrigated with Irrigated with Saline Saline Saline -Foul Odor after Cleansing No No No -Bioengineered Tissue No No No -Bleeding Controlled with Pressure Pressure Pressure -Offloading Yes Yes Yes -Type of Offloading Surgical Shoe Surgical Shoe Surgical Shoe -Treatment Response Procedure Procedure Procedure Tolerated Well Tolerated Well Tolerated Well -Debridement - Subq, 1st 20sq cm No No No Pain Scale: 0-10 Numeric Is Patient Pain Free? Yes Yes - Nurse 3 - General Ulcer D/C NN Start: 02/15/20 11:57 Freq: Status: Active Protocol: Activity Type Activity Date Activity User E-Sign Co-Sign Detail Recorded Client Recorded Date Recorded By Document 02/15/20 12:19 [id number] 02/15/20 12:21 Document 02/22/20 11:35 [id number] 02/22/20 11:36 Document 02/29/20 12:07 [facility] [id number] 02/29/20 12:10 [facility] 02/15/20 02/22/20 02/29/20 12:19 11:35 12:07 Wound Care Nurse 3 39-right lateral foot -Ulcer Cleansing Rinsed/ Rinsed/ Rinsed/ Irrigated with Irrigated with Irrigated with Saline Saline Saline -Foul Odor after Cleansing No No No -Primary Dressing Applied Fibracol Plus Fibracol Plus Fibracol Plus 4x4 4x4 4x4 -Primary Dressing Covered/Secured with Dry Gauze & Dry Gauze & Dry Gauze & Roll Gauze, Roll Gauze, Roll Gauze, Secured with Secured with Secured with Tape Tape Tape -Other Covering abd -Fibracol Plus 4x4 1 1 1 #35 L Stump -Ulcer Cleansing Rinsed/ Rinsed/ Rinsed/ Irrigated with Irrigated with Irrigated with Saline Saline Saline -Foul Odor after Cleansing No No No -Primary Dressing Applied Fibracol Plus Fibracol Plus Fibracol Plus 4x4 4x4 4x4 -Primary Dressing Covered/Secured with Dry Gauze & Dry Gauze, Dry Gauze & Roll Gauze, Secured with Roll Gauze, Secured with Tape Secured with Tape Tape -Fibracol Plus 4x4 0 0 0 #42- R MEDIAL FOOT -Ulcer Cleansing Rinsed/ Rinsed/ Rinsed/ Irrigated with Irrigated with Irrigated with Saline Saline Saline -Foul Odor after Cleansing No No No -Primary Dressing Applied Fibracol Plus Fibracol Plus Fibracol Plus 4x4 4x4 4x4 -Primary Dressing Covered/Secured with Dry Gauze & Dry Gauze & Dry Gauze & Roll Gauze, Roll Gauze, Roll Gauze, Secured with Secured with Secured with Tape Tape Tape -Fibracol Plus 4x4 0 0 0 #37-right 2nd toe -Ulcer Cleansing Rinsed/ Rinsed/ Rinsed/ Irrigated with Irrigated with Irrigated with Saline Saline Saline -Foul Odor after Cleansing No No No -Primary Dressing Applied Fibracol Plus Fibracol Plus Fibracol Plus 4x4 4x4 4x4 -Primary Dressing Covered/Secured with Dry Gauze & Dry Gauze & Dry Gauze & Roll Gauze, Roll Gauze, Roll Gauze, Secured with Secured with Secured with Tape Tape Tape,Other -Other Covering abd -Fibracol Plus 4x4 0 0 0 Left -Other applied pts own tubigrip Right -Tubular Bandage Double Layer -Size of Tubigrip Used Size D -Size D ($) 0 -Other single tubigrip farrow wrap Treatment Response Procedure Tolerated Well Pain Scale: 0-10 Numeric Is Patient Pain Free? Yes Yes Yes WC - Visit Discharge Discharge Condition Stable Stable Stable Ambulatory Status Wheelchair Wheelchair Wheelchair Transportation private [facility] transit transportation Medication Reconcilliation completed & Yes Yes provided to patient/care provider Clinical Summary of Care Provided Yes Yes Facility Type Home Health Wound debrided: sub 1st metatarsal head, distal dorsal second toe, plantar lateral foot Laterality: Right Wound Grade/Stage: grade 1 Type of Debridement: Excisional debridement Anesthesia Used: 5% Lidocaine Gel Depth: in the subcutaneous layer Percentage of wound debrided: 100 Instrument Used: #15 blade Tissue Removed: fibrous, devitalized subcutaneous, biofilm, slough Severity: Fat Layer Exposed Amount of bleeding with debridement: Mild Bleeding Controlled with: Pressure Patient tolerated procedure well - Additional Wound Wound debrided: leg Laterality: Left - g Wound Grade/Stage: grade 1 Type of Debridement: Excisional debridement Anesthesia Used: 5% Lidocaine Gel Depth: in the subcutaneous layer Percentage of wound debrided: 100 Instrument Used: #15 blade Tissue Removed: fibrous, devitalized subcutaneous, biofilm, slough Severity: Fat Layer Exposed Amount of bleeding with debridement: Mild Bleeding Controlled with: Pressure Patient tolerated procedure: Patient tolerated procedure well Assessment/Plan Active Problems Nonhealing amputation stump (Chronic) Walking difficulty due to ankle and foot (Chronic) Ulcer of left lower extremity with fat layer exposed (Chronic) Ulcer of right foot with fat layer exposed (Chronic) Obesity (Chronic) Diabetes mellitus with polyneuropathy (Chronic) Assessment: Open surgical wound anterior aspect left BKA stump. Peripheral vascular disease. Diabetes with neuropathy. Right second toe ulcer, jerez grade 1, no infection. Right plantar lateral forefoot ulcer, jerez grade 1, no infection. Right plantar medial forefoot ulcer, jerez grade 1, no infection Plan: I reviewed and discussed his case. He was reassured no signs of infection are noted today. For the anterior aspect left BKA stump, will continue Fibracol (Aquacel Ag due to Fibracol shortage currently) dressing changes daily. His ulcers to his right foot are noted. All bilateral lower extremity ulcer sites were debrided as noted in the clinical panel. To wash daily with soap and water. To change dressing with Aquacel Ag on the right foot also. To keep pressure off of the ulcer sites and a surgical shoe with heel weightbearing. To ambulate with his potential surgical shoe in place if able to. His left foot surgical shoe was adjusted to more proximal position to ensure mechanical pressure is not applied to the second toe where his ulcer appears to be more devitalized this past week. The eschar was removed and this looks much better. To continue work with home physical therapy. To continue to optimize healing with improved glycemic index, continued weight reduction, and well-balanced [employer] nutrients. He was reassured no local signs of infection are noted today. His white blood cell count was 7.62 during his recent hospital admission before discharge. His hemoglobin A1c was 7.3%. To continue with edema management including his compression wraps and also lymphedema pumps. To return to clinic in 1 to 2 weeks or call sooner if you have any questions or concerns.
[2020-03-07 11:51] VITALS: BP 148/58; PULSE 49; RESP 18; TEMP 36; BMI 47.9
--- NOTE | 2020-03-07 22:23 | PCM.WC.PN ---
(1) Ulcer of left lower extremity with fat layer exposed Status: Chronic Code(s): L97.922 - Non-pressure chronic ulcer of unspecified part of left lower leg with fat layer exposed (2) Ulcer of right foot with fat layer exposed Status: Chronic Code(s): L97.512 - Non-pressure chronic ulcer of other part of right foot with fat layer exposed (3) Diabetes mellitus with polyneuropathy Status: Chronic Qualifiers: Code(s): E11.42 - Type 2 diabetes mellitus with diabetic polyneuropathy (4) Nonhealing amputation stump Status: Chronic Code(s): T87.89 - Other complications of amputation stump (5) Obesity Status: Chronic Code(s): E66.9 - Obesity, unspecified (6) Walking difficulty due to ankle and foot Status: Chronic Code(s): R26.2 - Difficulty in walking, not elsewhere classified Type of Wound Date of Service: 03/07/20 Chief Complaint: Open surgical wound anterior aspect left BKA stump. Right second toe ulcer. Right plantar lateral foot ulcer. 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 He also has multiple right foot ulcers, and has been performing dressing changes as advised. He denies fever, chills, nausea, vomiting. He denies redness or odor. He has been trying to offload and keep his swelling reduced by wearing Tubigrip compression dressings. He denies redness or odor. He is ambulating in a motorized scooter. He reports he has E. coli in his water and is causing mouth infections for him the last couple months and now children in the community. He thinks that this is also delaying his ulcer healing because he cleaned his wounds with the same water. Progress of Wound: Left below-knee amputation with ulcer stable. Stable right foot ulcers - Physical Exam Vital Signs Temp Pulse Resp BP 96.8 F L 49 L 18 148/58 H 03/07/20 11:51 03/07/20 11:51 03/07/20 11:51 03/07/20 11:51 General: Alert, Oriented x3, Cooperative, No apparent distress HEENT: Atraumatic Extremities: No cyanosis, Capillary Refill Less than 3 Seconds, No Calf Tenderness, Diminished Peripheral Pulses, Edema - Decreased Skin: Ulcer/ Wound - No purulence, erythema, streaking, odor, infection. Skin is atrophic and hairless. Wound Measurements and Assessment WC - Nurse 1 - General Ulcer Measurement Start: 02/15/20 11:57 Freq: Status: Active Protocol: Activity Type Activity Date Activity User E-Sign Co-Sign Detail Recorded Client Recorded Date Recorded By Document 03/07/20 11:51 DL [id number] 03/07/20 12:01 DL 03/07/20 11:51 Wound Center Nurse 1 [Ulcer Assessment] 39-right lateral foot -Current Size (cm) - Length 1.1 -Current Size (cm) - Width 0.5 -Current Size (cm) - Depth 0.2 -Total Square Cm 0.55 -Exudate Amt None Present -Wound Margin Distinct, Outline Attached -Necrosis Amt Large (67-100%) -Necrotic Tissue Type Adherent Slough -Texture (Susy-wound Skin Appearance) Assessed, Scarring -Moisture (Susy-wound Skin Appearance Assessed,Dry/ ) Scaly -Color (Susy-wound Skin Appearance) Assessed, Hemosiderin Staining -Temperature (Susy-wound Skin No Abnormality Appearance) (Pt Warm) -Tenderness on Palpation (Susy-wound No Skin Appearance) -Ulcer Cleansing soap and water -Foul Odor after Cleansing No -Anesthetic Used 4% Lidocaine Solution #35 L Stump -Current Size (cm) - Length 0.8 -Current Size (cm) - Width 1.7 -Current Size (cm) - Depth 0.2 -Total Square Cm 1.36 -Wound Margin Distinct, Outline Attached -Granulation Amt None Present (0 %) -Necrosis Amt Large (67-100%) -Necrotic Tissue Type Adherent Slough -Texture (Susy-wound Skin Appearance) Assessed, Scarring -Moisture (Susy-wound Skin Appearance Assessed,Dry/ ) Scaly -Color (Susy-wound Skin Appearance) Assessed, Hemosiderin Staining -Temperature (Susy-wound Skin No Abnormality Appearance) (Pt Warm) -Tenderness on Palpation (Susy-wound No Skin Appearance) -Ulcer Cleansing soap and water -Foul Odor after Cleansing No -Anesthetic Used 4% Lidocaine Solution #42- R MEDIAL FOOT -Current Size (cm) - Length 1.7 -Current Size (cm) - Width 0.3 -Current Size (cm) - Depth 0.2 -Total Square Cm 0.51 -Exudate Amt Small -Exudate Type Serosanguineous -Wound Margin Distinct, Outline Attached -Granulation Amt Medium (34-66%) -Granulation Quality Red -Necrosis Amt Medium (34-66%) -Necrotic Tissue Type Adherent Slough -Texture (Susy-wound Skin Appearance) Assessed, Scarring -Moisture (Susy-wound Skin Appearance Assessed,Dry/ ) Scaly -Color (Susy-wound Skin Appearance) Hemosiderin Staining -Temperature (Susy-wound Skin No Abnormality Appearance) (Pt Warm) -Tenderness on Palpation (Susy-wound No Skin Appearance) -Ulcer Cleansing soap and water -Foul Odor after Cleansing No -Anesthetic Used 4% Lidocaine Solution #37-right 2nd toe -Current Size (cm) - Length 0.5 -Current Size (cm) - Width 1 -Current Size (cm) - Depth 0.3 -Total Square Cm 0.5 -Exudate Amt None Present -Wound Margin Distinct, Outline Attached -Necrosis Amt Large (67-100%) -Necrotic Tissue Type Adherent Slough -Texture (Susy-wound Skin Appearance) Assessed, Scarring -Moisture (Susy-wound Skin Appearance Assessed,Dry/ ) Scaly -Color (Susy-wound Skin Appearance) Assessed, Hemosiderin Staining -Temperature (Susy-wound Skin No Abnormality Appearance) (Pt Warm) -Tenderness on Palpation (Susy-wound No Skin Appearance) -Ulcer Cleansing soap and water -Foul Odor after Cleansing No -Anesthetic Used 4% Lidocaine Solution WC - Nurse 2 - General Ulcer CM Notes Start: 02/15/20 11:57 Freq: Status: Active Protocol: Activity Type Activity Date Activity User E-Sign Co-Sign Detail Recorded Client Recorded Date Recorded By Document 03/07/20 12:08 NORRIS [id number] 03/07/20 12:13 NORRIS 03/07/20 12:08 Wound Center Nurse 2 [Procedure/Treatment] 39-right lateral foot -Time 12:09 -Correct Patient Yes -Correct Side, Site, Position Yes -Correct Procedure Yes -Procedure Performed Yes -Type of Procedure Debridement -Clinical Debridement Subcutaneous -Tissue Removed Subcutaneous -Post Debridement (cm) - Length 1.2 -Post Debridement (cm) - Width 0.5 -Post Debridement (cm) - Depth 0.2 -Total Square (Post) (cm) 0.60 -Area of Debridement (cm) - Length 1.2 -Area of Debridement (cm) - Width 0.5 -Total Square (Area) (cm) 0.60 -Tunneling No -Undermining/Tunneling No -Circular Undermining No -Wound/Ulcer Outcome Not Healed -Ulcer Cleansing Rinsed/ Irrigated with Saline -Foul Odor after Cleansing No -Bioengineered Tissue No -Bleeding Controlled with Pressure -Offloading Yes -Type of Offloading Surgical Shoe -Treatment Response Procedure Tolerated Well -Debridement - Subq, 1st 20sq cm Yes #35 L Stump -Time 12:10 -Correct Patient Yes -Correct Side, Site, Position Yes -Correct Procedure Yes -Procedure Performed Yes -Type of Procedure Debridement -Clinical Debridement Subcutaneous -Tissue Removed Subcutaneous -Post Debridement (cm) - Length 1 -Post Debridement (cm) - Width 1.8 -Post Debridement (cm) - Depth 0.2 -Total Square (Post) (cm) 1.8 -Area of Debridement (cm) - Length 1 -Area of Debridement (cm) - Width 1.8 -Total Square (Area) (cm) 1.8 -Tunneling No -Undermining/Tunneling No -Circular Undermining No -Wound/Ulcer Outcome Not Healed -Ulcer Cleansing Rinsed/ Irrigated with Saline -Foul Odor after Cleansing No -Bioengineered Tissue No -Bleeding Controlled with Pressure -Offloading Yes -Type of Offloading Surgical Shoe -Treatment Response Procedure Tolerated Well -Debridement - Subq, 1st 20sq cm No #42- R MEDIAL FOOT -Time 12:10 -Correct Patient Yes -Correct Side, Site, Position Yes -Correct Procedure Yes -Procedure Performed Yes -Type of Procedure Debridement -Clinical Debridement Subcutaneous -Tissue Removed Subcutaneous -Post Debridement (cm) - Length 1.8 -Post Debridement (cm) - Width 0.4 -Post Debridement (cm) - Depth 0.2 -Total Square (Post) (cm) 0.72 -Area of Debridement (cm) - Length 1.8 -Area of Debridement (cm) - Width 0.4 -Total Square (Area) (cm) 0.72 -Tunneling No -Undermining/Tunneling No -Circular Undermining No -Wound/Ulcer Outcome Not Healed -Ulcer Cleansing Rinsed/ Irrigated with Saline -Foul Odor after Cleansing No -Bioengineered Tissue No -Bleeding Controlled with Pressure -Offloading Yes -Type of Offloading Surgical Shoe -Treatment Response Procedure Tolerated Well -Debridement - Subq, 1st 20sq cm No #37-right 2nd toe -Time 12:11 -Correct Patient Yes -Correct Side, Site, Position Yes -Correct Procedure Yes -Procedure Performed Yes -Type of Procedure Debridement -Clinical Debridement Subcutaneous -Tissue Removed Subcutaneous -Post Debridement (cm) - Length 0.6 -Post Debridement (cm) - Width 1 -Post Debridement (cm) - Depth 0.3 -Total Square (Post) (cm) 0.6 -Area of Debridement (cm) - Length 0.6 -Area of Debridement (cm) - Width 1 -Total Square (Area) (cm) 0.6 -Tunneling No -Undermining/Tunneling No -Circular Undermining No -Wound/Ulcer Outcome Not Healed -Ulcer Cleansing Rinsed/ Irrigated with Saline -Foul Odor after Cleansing No -Bioengineered Tissue No -Bleeding Controlled with Pressure -Offloading Yes -Type of Offloading Surgical Shoe -Treatment Response Procedure Tolerated Well -Debridement - Subq, 1st 20sq cm No [See Physician Procedure note for Specifics] Pain Scale: 0-10 Numeric [Pain] -Is Patient Pain Free? Yes WC - Nurse 3 - General Ulcer D/C NN Start: 02/15/20 11:57 Freq: Status: Active Protocol: Activity Type Activity Date Activity User E-Sign Co-Sign Detail Recorded Client Recorded Date Recorded By Document 03/07/20 12:23 JEROD [id number] 03/07/20 12:24 JEROD 03/07/20 12:23 Wound Care Nurse 3 [Wound Dressing] 39-right lateral foot -Ulcer Cleansing Rinsed/ Irrigated with Saline -Foul Odor after Cleansing No -Primary Dressing Applied Fibracol Plus 4x4 -Primary Dressing Covered/Secured Dry Gauze & with Roll Gauze, Secured with Tape -Fibracol Plus 4x4 1 #35 L Stump -Ulcer Cleansing Rinsed/ Irrigated with Saline -Foul Odor after Cleansing No -Primary Dressing Covered/Secured Dry Gauze & with Roll Gauze, Secured with Tape #42- R MEDIAL FOOT -Ulcer Cleansing Rinsed/ Irrigated with Saline -Foul Odor after Cleansing No -Primary Dressing Covered/Secured Dry Gauze & with Roll Gauze, Secured with Tape #37-right 2nd toe -Ulcer Cleansing Rinsed/ Irrigated with Saline -Foul Odor after Cleansing No -Primary Dressing Covered/Secured Dry Gauze & with Roll Gauze, Secured with Tape Pain Scale: 0-10 Numeric [Pain] -Is Patient Pain Free? Yes WC - Visit Discharge [Visit Discharge Information] -Discharge Condition Stable -Ambulatory Status Wheelchair -Transportation Ambulance -Accompanied by [place] [facility] Musculoskeletal: No Tenderness to Palpation of Joints or Extremities, Muscle Wasting Neurological: - - Lack of epicritic sensation height which is consistent with neuropathy Psych/Mental Status: Normal Affect - Lack of epicritic sensation light touch is consistent with neuropathy, Appropriate Debridement Note Post-Debridement Measurements/Treatment - Nurse 2 - General Ulcer CM Notes Start: 02/15/20 11:57 Freq: Status: Active Protocol: Activity Type Activity Date Activity User E-Sign Co-Sign Detail Recorded Client Recorded Date Recorded By Document 02/15/20 12:08 [id number] 02/15/20 12:12 Document 02/22/20 11:24 [id number] 02/22/20 11:35 Document 02/29/20 11:54 [id number] 02/29/20 12:00 Document 03/07/20 12:08 [id number] 03/07/20 12:13 02/15/20 02/22/20 02/29/20 12:08 11:24 11:54 Wound Center Nurse 2 39-right lateral foot -Time 12:08 11:25 11:54 -Correct Patient Yes Yes Yes -Correct Side, Site, Position Yes Yes Yes -Correct Procedure Yes Yes Yes -Procedure Performed Yes Yes Yes -Type of Procedure Debridement Debridement Debridement -Clinical Debridement Subcutaneous Subcutaneous Subcutaneous -Tissue Removed Subcutaneous Subcutaneous Subcutaneous -Post Debridement (cm) - Length 1.1 0.6 1.5 -Post Debridement (cm) - Width 1.2 0.6 1.1 -Post Debridement (cm) - Depth 0.3 0.1 0.2 -Total Square (Post) (cm) 1.32 0.36 1.65 -Area of Debridement (cm) - Length 1.1 0.6 1.5 -Area of Debridement (cm) - Width 1.2 0.6 1.1 -Total Square (Area) (cm) 1.32 0.36 1.65 -Tunneling No No No -Undermining/Tunneling No No No -Circular Undermining No No No -Wound/Ulcer Outcome Not Healed Not Healed Not Healed -Ulcer Cleansing Rinsed/ Rinsed/ Rinsed/ Irrigated with Irrigated with Irrigated with Saline Saline Saline -Foul Odor after Cleansing No No No -Bioengineered Tissue No No No -Bleeding Controlled with Pressure Pressure,Silver Pressure Nitrate -Offloading Yes No Yes -Type of Offloading Surgical Shoe Surgical Shoe -Treatment Response Procedure Procedure Procedure Tolerated Well Tolerated Well Tolerated Well -Debridement - Subq, 1st 20sq cm Yes No Yes #35 L Stump -Time 12:09 11:25 11:56 -Correct Patient Yes Yes Yes -Correct Side, Site, Position Yes Yes Yes -Correct Procedure Yes Yes Yes -Procedure Performed Yes Yes Yes -Type of Procedure Debridement Debridement Debridement -Clinical Debridement Subcutaneous Subcutaneous Subcutaneous -Tissue Removed Subcutaneous Subcutaneous Subcutaneous -Post Debridement (cm) - Length 1.2 2.5 1 -Post Debridement (cm) - Width 2.5 1.1 3 -Post Debridement (cm) - Depth 0.3 0.2 0.2 -Total Square (Post) (cm) 3.00 2.75 3 -Area of Debridement (cm) - Length 1.2 2.5 1 -Area of Debridement (cm) - Width 2.5 1.1 3 -Total Square (Area) (cm) 3.00 2.75 3 -Tunneling No No No -Undermining/Tunneling No No No -Circular Undermining No No No -Wound/Ulcer Outcome Not Healed Not Healed Not Healed -Ulcer Cleansing Rinsed/ Rinsed/ Rinsed/ Irrigated with Irrigated with Irrigated with Saline Saline Saline -Foul Odor after Cleansing No No No -Bioengineered Tissue No No No -Bleeding Controlled with Pressure Pressure Pressure -Offloading Yes Yes No -Type of Offloading Surgical Shoe Surgical Shoe -Treatment Response Procedure Procedure Procedure Tolerated Well Tolerated Well Tolerated Well -Debridement - Subq, 1st 20sq cm No No No #42- R MEDIAL FOOT -Time 12:11 11:27 11:57 -Correct Patient Yes Yes Yes -Correct Side, Site, Position Yes Yes Yes -Correct Procedure Yes Yes Yes -Procedure Performed Yes Yes Yes -Type of Procedure Debridement Debridement Debridement -Clinical Debridement Subcutaneous Subcutaneous Subcutaneous -Tissue Removed Subcutaneous Subcutaneous Subcutaneous -Post Debridement (cm) - Length 0.5 2.1 1.5 -Post Debridement (cm) - Width 1.1 0.6 0.5 -Post Debridement (cm) - Depth 0.5 0.1 0.2 -Total Square (Post) (cm) 0.55 1.26 0.75 -Area of Debridement (cm) - Length 0.5 2.1 1.5 -Area of Debridement (cm) - Width 1.1 0.6 0.5 -Total Square (Area) (cm) 0.55 1.26 0.75 -Tunneling No No No -Undermining/Tunneling No No No -Circular Undermining No No No -Wound/Ulcer Outcome Not Healed Not Healed Not Healed -Ulcer Cleansing Rinsed/ Rinsed/ Rinsed/ Irrigated with Irrigated with Irrigated with Saline Saline Saline -Foul Odor after Cleansing No No No -Bioengineered Tissue No No No -Bleeding Controlled with Pressure Pressure Pressure -Offloading Yes Yes Yes -Type of Offloading Surgical Shoe Surgical Shoe Surgical Shoe -Treatment Response Procedure Procedure Procedure Tolerated Well Tolerated Well Tolerated Well -Debridement - Subq, 1st 20sq cm No Yes No #37-right 2nd toe -Time 12:11 11:28 11:58 -Correct Patient Yes Yes Yes -Correct Side, Site, Position Yes Yes Yes -Correct Procedure Yes Yes Yes -Procedure Performed Yes Yes Yes -Type of Procedure Debridement Debridement Debridement -Clinical Debridement Subcutaneous Subcutaneous Subcutaneous -Tissue Removed Subcutaneous Subcutaneous Subcutaneous -Post Debridement (cm) - Length 1.3 2.5 3.2 -Post Debridement (cm) - Width 1.3 1.5 1.8 -Post Debridement (cm) - Depth 0.1 0.2 0.2 -Total Square (Post) (cm) 1.69 3.75 5.76 -Area of Debridement (cm) - Length 1.3 2.5 3.2 -Area of Debridement (cm) - Width 1.3 1.5 1.8 -Total Square (Area) (cm) 1.69 3.75 5.76 -Tunneling No No No -Undermining/Tunneling No No No -Circular Undermining No No No -Wound/Ulcer Outcome Not Healed Not Healed Not Healed -Ulcer Cleansing Rinsed/ Rinsed/ Rinsed/ Irrigated with Irrigated with Irrigated with Saline Saline Saline -Foul Odor after Cleansing No No No -Bioengineered Tissue No No No -Bleeding Controlled with Pressure Pressure Pressure -Offloading Yes Yes Yes -Type of Offloading Surgical Shoe Surgical Shoe Surgical Shoe -Treatment Response Procedure Procedure Procedure Tolerated Well Tolerated Well Tolerated Well -Debridement - Subq, 1st 20sq cm No No No Pain Scale: 0-10 Numeric Is Patient Pain Free? Yes Yes 03/07/20 12:08 Wound Center Nurse 2 39-right lateral foot -Time 12:09 -Correct Patient Yes -Correct Side, Site, Position Yes -Correct Procedure Yes -Procedure Performed Yes -Type of Procedure Debridement -Clinical Debridement Subcutaneous -Tissue Removed Subcutaneous -Post Debridement (cm) - Length 1.2 -Post Debridement (cm) - Width 0.5 -Post Debridement (cm) - Depth 0.2 -Total Square (Post) (cm) 0.60 -Area of Debridement (cm) - Length 1.2 -Area of Debridement (cm) - Width 0.5 -Total Square (Area) (cm) 0.60 -Tunneling No -Undermining/Tunneling No -Circular Undermining No -Wound/Ulcer Outcome Not Healed -Ulcer Cleansing Rinsed/ Irrigated with Saline -Foul Odor after Cleansing No -Bioengineered Tissue No -Bleeding Controlled with Pressure -Offloading Yes -Type of Offloading Surgical Shoe -Treatment Response Procedure Tolerated Well -Debridement - Subq, 1st 20sq cm Yes #35 L Stump -Time 12:10 -Correct Patient Yes -Correct Side, Site, Position Yes -Correct Procedure Yes -Procedure Performed Yes -Type of Procedure Debridement -Clinical Debridement Subcutaneous -Tissue Removed Subcutaneous -Post Debridement (cm) - Length 1 -Post Debridement (cm) - Width 1.8 -Post Debridement (cm) - Depth 0.2 -Total Square (Post) (cm) 1.8 -Area of Debridement (cm) - Length 1 -Area of Debridement (cm) - Width 1.8 -Total Square (Area) (cm) 1.8 -Tunneling No -Undermining/Tunneling No -Circular Undermining No -Wound/Ulcer Outcome Not Healed -Ulcer Cleansing Rinsed/ Irrigated with Saline -Foul Odor after Cleansing No -Bioengineered Tissue No -Bleeding Controlled with Pressure -Offloading Yes -Type of Offloading Surgical Shoe -Treatment Response Procedure Tolerated Well -Debridement - Subq, 1st 20sq cm No #42- R MEDIAL FOOT -Time 12:10 -Correct Patient Yes -Correct Side, Site, Position Yes -Correct Procedure Yes -Procedure Performed Yes -Type of Procedure Debridement -Clinical Debridement Subcutaneous -Tissue Removed Subcutaneous -Post Debridement (cm) - Length 1.8 -Post Debridement (cm) - Width 0.4 -Post Debridement (cm) - Depth 0.2 -Total Square (Post) (cm) 0.72 -Area of Debridement (cm) - Length 1.8 -Area of Debridement (cm) - Width 0.4 -Total Square (Area) (cm) 0.72 -Tunneling No -Undermining/Tunneling No -Circular Undermining No -Wound/Ulcer Outcome Not Healed -Ulcer Cleansing Rinsed/ Irrigated with Saline -Foul Odor after Cleansing No -Bioengineered Tissue No -Bleeding Controlled with Pressure -Offloading Yes -Type of Offloading Surgical Shoe -Treatment Response Procedure Tolerated Well -Debridement - Subq, 1st 20sq cm No #37-right 2nd toe -Time 12:11 -Correct Patient Yes -Correct Side, Site, Position Yes -Correct Procedure Yes -Procedure Performed Yes -Type of Procedure Debridement -Clinical Debridement Subcutaneous -Tissue Removed Subcutaneous -Post Debridement (cm) - Length 0.6 -Post Debridement (cm) - Width 1 -Post Debridement (cm) - Depth 0.3 -Total Square (Post) (cm) 0.6 -Area of Debridement (cm) - Length 0.6 -Area of Debridement (cm) - Width 1 -Total Square (Area) (cm) 0.6 -Tunneling No -Undermining/Tunneling No -Circular Undermining No -Wound/Ulcer Outcome Not Healed -Ulcer Cleansing Rinsed/ Irrigated with Saline -Foul Odor after Cleansing No -Bioengineered Tissue No -Bleeding Controlled with Pressure -Offloading Yes -Type of Offloading Surgical Shoe -Treatment Response Procedure Tolerated Well -Debridement - Subq, 1st 20sq cm No Pain Scale: 0-10 Numeric Is Patient Pain Free? Yes WC - Nurse 3 - General Ulcer D/C NN Start: 02/15/20 11:57 Freq: Status: Active Protocol: Activity Type Activity Date Activity User E-Sign Co-Sign Detail Recorded Client Recorded Date Recorded By Document 02/15/20 12:19 NORRIS [id number] 02/15/20 12:21 NORRIS Document 02/22/20 11:35 NORRIS [id number] 02/22/20 11:36 JF Document 02/29/20 12:07 [facility] [id number] 02/29/20 12:10 BMF Document 03/07/20 12:23 KR [id number] 03/07/20 12:24 KR 02/15/20 02/22/20 02/29/20 12:19 11:35 12:07 Wound Care Nurse 3 39-right lateral foot -Ulcer Cleansing Rinsed/ Rinsed/ Rinsed/ Irrigated with Irrigated with Irrigated with Saline Saline Saline -Foul Odor after Cleansing No No No -Primary Dressing Applied Fibracol Plus Fibracol Plus Fibracol Plus 4x4 4x4 4x4 -Primary Dressing Covered/Secured with Dry Gauze & Dry Gauze & Dry Gauze & Roll Gauze, Roll Gauze, Roll Gauze, Secured with Secured with Secured with Tape Tape Tape -Other Covering abd -Fibracol Plus 4x4 1 1 1 #35 L Stump -Ulcer Cleansing Rinsed/ Rinsed/ Rinsed/ Irrigated with Irrigated with Irrigated with Saline Saline Saline -Foul Odor after Cleansing No No No -Primary Dressing Applied Fibracol Plus Fibracol Plus Fibracol Plus 4x4 4x4 4x4 -Primary Dressing Covered/Secured with Dry Gauze & Dry Gauze, Dry Gauze & Roll Gauze, Secured with Roll Gauze, Secured with Tape Secured with Tape Tape -Fibracol Plus 4x4 0 0 0 #42- R MEDIAL FOOT -Ulcer Cleansing Rinsed/ Rinsed/ Rinsed/ Irrigated with Irrigated with Irrigated with Saline Saline Saline -Foul Odor after Cleansing No No No -Primary Dressing Applied Fibracol Plus Fibracol Plus Fibracol Plus 4x4 4x4 4x4 -Primary Dressing Covered/Secured with Dry Gauze & Dry Gauze & Dry Gauze & Roll Gauze, Roll Gauze, Roll Gauze, Secured with Secured with Secured with Tape Tape Tape -Fibracol Plus 4x4 0 0 0 #37-right 2nd toe -Ulcer Cleansing Rinsed/ Rinsed/ Rinsed/ Irrigated with Irrigated with Irrigated with Saline Saline Saline -Foul Odor after Cleansing No No No -Primary Dressing Applied Fibracol Plus Fibracol Plus Fibracol Plus 4x4 4x4 4x4 -Primary Dressing Covered/Secured with Dry Gauze & Dry Gauze & Dry Gauze & Roll Gauze, Roll Gauze, Roll Gauze, Secured with Secured with Secured with Tape Tape Tape,Other -Other Covering abd -Fibracol Plus 4x4 0 0 0 Left -Other applied pts own tubigrip Right -Tubular Bandage Double Layer -Size of Tubigrip Used Size D -Size D ($) 0 -Other single tubigrip farrow wrap Treatment Response Procedure Tolerated Well Pain Scale: 0-10 Numeric Is Patient Pain Free? Yes Yes Yes WC - Visit Discharge Discharge Condition Stable Stable Stable Ambulatory Status Wheelchair Wheelchair Wheelchair Transportation [facility] [employer] [facility] transportation Accompanied by Medication Reconcilliation completed & Yes Yes provided to patient/care provider Clinical Summary of Care Provided Yes Yes Facility Type Home Health 03/07/20 12:23 Wound Care Nurse 3 39-right lateral foot -Ulcer Cleansing Rinsed/ Irrigated with Saline -Foul Odor after Cleansing No -Primary Dressing Applied Fibracol Plus 4x4 -Primary Dressing Covered/Secured with Dry Gauze & Roll Gauze, Secured with Tape -Other Covering -Fibracol Plus 4x4 1 #35 L Stump -Ulcer Cleansing Rinsed/ Irrigated with Saline -Foul Odor after Cleansing No -Primary Dressing Applied -Primary Dressing Covered/Secured with Dry Gauze & Roll Gauze, Secured with Tape -Fibracol Plus 4x4 #42- R MEDIAL FOOT -Ulcer Cleansing Rinsed/ Irrigated with Saline -Foul Odor after Cleansing No -Primary Dressing Applied -Primary Dressing Covered/Secured with Dry Gauze & Roll Gauze, Secured with Tape -Fibracol Plus 4x4 #37-right 2nd toe -Ulcer Cleansing Rinsed/ Irrigated with Saline -Foul Odor after Cleansing No -Primary Dressing Applied -Primary Dressing Covered/Secured with Dry Gauze & Roll Gauze, Secured with Tape -Other Covering -Fibracol Plus 4x4 Left -Other Right -Tubular Bandage -Size of Tubigrip Used -Size D ($) -Other Treatment Response Pain Scale: 0-10 Numeric Is Patient Pain Free? Yes WC - Visit Discharge Discharge Condition Stable Ambulatory Status Wheelchair Transportation Ambulance Accompanied by [employer] transit Medication Reconcilliation completed & provided to patient/care provider Clinical Summary of Care Provided Facility Type Wound debrided: leg Laterality: Left Wound Grade/Stage: grade 1 Type of Debridement: Excisional debridement Anesthesia Used: 5% Lidocaine Gel Depth: in the subcutaneous layer Percentage of wound debrided: 100 Instrument Used: #15 blade Tissue Removed: fibrous, devitalized subcutaneous, biofilm, slough Severity: Fat Layer Exposed Amount of bleeding with debridement: Mild Bleeding Controlled with: Pressure Patient tolerated procedure well - Additional Wound Wound debrided: lateral forefoto Laterality: Right Wound Grade/Stage: grade 1 Type of Debridement: Excisional debridement Anesthesia Used: 5% Lidocaine Gel Depth: in the subcutaneous layer Percentage of wound debrided: 100 Instrument Used: #15 blade Tissue Removed: fibrous, devitalized subcutaneous, biofilm, slough Severity: Fat Layer Exposed Amount of bleeding with debridement: Mild Bleeding Controlled with: Pressure Patient tolerated procedure: Patient tolerated procedure well - Additional Wound Wound debrided: dorsal distal 2nd toe, medial plantar forefoot Laterality: Right Wound Grade/Stage: grade 1 Type of Debridement: Excisional debridement Anesthesia Used: 5% Lidocaine Gel Depth: in the subcutaneous layer Percentage of wound debrided: 100 Instrument Used: #15 blade Tissue Removed: fibrous, devitalized subcutaneous, biofilm, slough Severity: Fat Layer Exposed Amount of bleeding with debridement: Mild Bleeding Controlled with: Pressure Patient tolerated procedure: Patient tolerated procedure well Assessment/Plan Active Problems Nonhealing amputation stump (Chronic) Walking difficulty due to ankle and foot (Chronic) Ulcer of left lower extremity with fat layer exposed (Chronic) Ulcer of right foot with fat layer exposed (Chronic) Obesity (Chronic) Diabetes mellitus with polyneuropathy (Chronic) Assessment: Open surgical wound anterior aspect left BKA stump. Peripheral vascular disease. Diabetes with neuropathy. Right second toe ulcer, jerez grade 1, no infection. Right plantar lateral forefoot ulcer, jerez grade 1, no infection. Right plantar medial forefoot ulcer, jerez grade 1, no infection Plan: I reviewed and discussed his case. He was reassured no signs of infection are noted today. For the anterior aspect left BKA stump, will continue Fibracol (Aquacel Ag due to Fibracol shortage currently) dressing changes daily. His ulcers to his right foot are noted. All bilateral lower extremity ulcer sites were debrided as noted in the clinical panel. To wash daily with soap and water. To change dressing with Aquacel Ag on the right foot also. To keep pressure off of the ulcer sites and a surgical shoe with heel weightbearing. To ambulate with his potential surgical shoe in place if able to. His left foot surgical shoe was adjusted to more proximal position to ensure mechanical pressure is not applied to the second toe where his ulcer appears to be more devitalized this past week. The eschar was removed and this looks much better. To continue work with home physical therapy. To continue to optimize healing with improved glycemic index, continued weight reduction, and well-balanced [employer] nutrients. He was reassured no local signs of infection are noted today. His white blood cell count was 7.62 during his recent hospital admission before discharge. His hemoglobin A1c was 7.3%. To continue with edema management including his compression wraps and also lymphedema pumps. To return to clinic in 1 to 2 weeks or call sooner if you have any questions or concerns. It is noted he has E. coli in his water source and was advised not to clean his wounds with this water.
[2020-03-13 11:03] VITALS: BP 186/73; PULSE 53; RESP 16; TEMP 36.9; BMI 47.9
--- NOTE | 2020-03-13 11:31 | PN.PCM_ITS ---
(1) Diabetes mellitus with polyneuropathy Status: Chronic Qualifiers: Code(s): E11.42 - Type 2 diabetes mellitus with diabetic polyneuropathy (2) Nonhealing amputation stump Status: Chronic Code(s): T87.89 - Other complications of amputation stump (3) Ulcer of right foot with fat layer exposed Status: Chronic Code(s): L97.512 - Non-pressure chronic ulcer of other part of right foot with fat layer exposed (4) Walking difficulty due to ankle and foot Status: Chronic Code(s): R26.2 - Difficulty in walking, not elsewhere classified (5) Body mass index (BMI) 50.0-59.9, adult Status: Chronic Code(s): Z68.43 - Body mass index [BMI] 50.0-59.9, adult (6) Diabetic foot ulcer Status: Chronic Code(s): E11.621 - Type 2 diabetes mellitus with foot ulcer; L97.509 - Non-pressure chronic ulcer of other part of unspecified foot with unspecified severity Type of Wound Date of Service: 03/13/20 Chief Complaint: Open surgical wound anterior aspect left BKA stump. Right second toe ulcer. Right plantar lateral foot ulcer. 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 He also has multiple right foot ulcers, and has been performing dressing changes as advised. He denies fever, chills, nausea, vomiting. He denies redness or odor. He has been trying to offload and keep his swelling reduced by wearing Tubigrip compression dressings. He denies redness or odor. He is ambulating in a motorized scooter. He reports he has E. coli in his water and is causing mouth infections for him the last couple months and now children in the community. He thinks that this is also delaying his ulcer healing because he cleaned his wounds with the same water. He has switched to bottled water and has noticed an improvement in his wounds which he attributes it to. His PCP is out of town and is awaiting his return to address the mouth thrush Progress of Wound: Left below-knee amputation with ulcer stable. Stable right foot ulcers Subjective: Patient seen and examined bedside. Patient denies any new pedal complaints. Patient denies any nausea, fever, and chest pain, shortness of breath, chills, cough, streaking, purulence, vomiting. - Physical Exam Vital Signs Temp Pulse Resp BP 98.5 F 53 L 16 186/73 H 03/13/20 11:03 03/13/20 11:03 03/13/20 11:03 03/13/20 11:03 General: Alert, Oriented x3 HEENT: Atraumatic Abdomen: Obese Extremities: No clubbing, No cyanosis, Capillary Refill Less than 3 Seconds, No Calf Tenderness, Diminished Peripheral Pulses, Edema Skin: Ulcer/ Wound - Right second toe, right plantar lateral foot, left BKA stump. No malodor, erythema, purulence, probing to bone, streaking, or other signs of infection. Skin is atrophic and hairless. Granular base with serosanguineous drainage after debridement Wound Measurements and Assessment WC - Nurse 1 - General Ulcer Measurement Start: 02/15/20 11:57 Freq: Status: Active Protocol: Activity Type Activity Date Activity User E-Sign Co-Sign Detail Recorded Client Recorded Date Recorded By Document 03/13/20 11:03 [facility] [id number] 03/13/20 11:10 [facility] 03/13/20 11:03 Wound Center Nurse 1 [Ulcer Assessment] 39-right lateral foot -Combined with other wound No -Current Size (cm) - Length 0.8 -Current Size (cm) - Width 1 -Current Size (cm) - Depth 0.3 -Total Square Cm 0.8 -Photo Taken No -Epithelialization Small 1-33% -Tunneling No -Undermining/Tunneling No -Circular Undermining No -Exudate Amt Small -Exudate Type Serosanguineous -Wound Margin Distinct, Outline Attached -Granulation Amt Large (67-100%) -Granulation Quality Red -Slough/Fibrin Yes -Necrosis Amt Small (1-33%) -Necrotic Tissue Type Adherent Slough -Texture (Susy-wound Skin Appearance) Assessed, Scarring -Moisture (Susy-wound Skin Appearance Assessed,Dry/ ) Scaly -Color (Susy-wound Skin Appearance) Assessed -Temperature (Susy-wound Skin No Abnormality Appearance) (Pt Warm) -Tenderness on Palpation (Susy-wound No Skin Appearance) -Ulcer Cleansing SOAPY WATER -Foul Odor after Cleansing No -Anesthetic Used 5% Lidocaine Gel #35 L Stump -Combined with other wound No -Current Size (cm) - Length 1.2 -Current Size (cm) - Width 2.3 -Current Size (cm) - Depth 0.3 -Total Square Cm 2.76 -Photo Taken No -Epithelialization None Present -Tunneling No -Undermining/Tunneling No -Circular Undermining No -Exudate Amt Small -Exudate Type Serosanguineous -Wound Margin Distinct, Outline Attached -Granulation Amt Large (67-100%) -Granulation Quality Red -Slough/Fibrin Yes -Necrosis Amt Small (1-33%) -Necrotic Tissue Type Adherent Slough -Texture (Susy-wound Skin Appearance) Assessed, Scarring -Moisture (Susy-wound Skin Appearance Assessed ) -Color (Susy-wound Skin Appearance) Assessed -Temperature (Susy-wound Skin No Abnormality Appearance) (Pt Warm) -Tenderness on Palpation (Susy-wound No Skin Appearance) -Ulcer Cleansing Rinsed/ Irrigated with Saline -Foul Odor after Cleansing No -Anesthetic Used 4% Lidocaine Solution #42- R MEDIAL FOOT -Combined with other wound No -Current Size (cm) - Length 0.6 -Current Size (cm) - Width 2.2 -Current Size (cm) - Depth 0.1 -Total Square Cm 1.32 -Photo Taken No -Epithelialization None Present -Tunneling No -Undermining/Tunneling No -Circular Undermining No -Exudate Amt Small -Exudate Type Serosanguineous -Wound Margin Distinct, Outline Attached -Granulation Amt Small (1-33%) -Granulation Quality [place] -Slough/Fibrin Yes -Necrosis Amt Large (67-100%) -Necrotic Tissue Type Adherent Slough -Texture (Susy-wound Skin Appearance) Assessed, Scarring -Moisture (Susy-wound Skin Appearance Assessed ) -Color (Susy-wound Skin Appearance) Assessed -Temperature (Susy-wound Skin No Abnormality Appearance) (Pt Warm) -Tenderness on Palpation (Susy-wound No Skin Appearance) -Ulcer Cleansing SOAPY WATER -Foul Odor after Cleansing No -Anesthetic Used 4% Lidocaine Solution #37-right 2nd toe -Combined with other wound No -Current Size (cm) - Length 1 -Current Size (cm) - Width 1.4 -Current Size (cm) - Depth 0.2 -Total Square Cm 1.4 -Photo Taken No -Epithelialization Small 1-33% -Tunneling No -Undermining/Tunneling No -Circular Undermining No -Exudate Amt Small -Exudate Type Serosanguineous -Wound Margin Distinct, Outline Attached -Granulation Amt Small (1-33%) -Granulation Quality Red -Slough/Fibrin Yes -Necrosis Amt Medium (34-66%) -Necrotic Tissue Type Adherent Slough -Texture (Susy-wound Skin Appearance) Assessed, Scarring -Moisture (Susy-wound Skin Appearance Assessed, ) Maceration -Color (Susy-wound Skin Appearance) Assessed,Palor -Temperature (Susy-wound Skin No Abnormality Appearance) (Pt Warm) -Tenderness on Palpation (Susy-wound No Skin Appearance) -Ulcer Cleansing SOAPYWATER -Foul Odor after Cleansing No -Anesthetic Used 5% Lidocaine Gel [Edema Assessment] -Lower Limb Edema Present Yes -Right Calf (cm) 43.6 -Right Ankle (cm) 28.6 -Left Calf (cm) 49.8 WC - Nurse 2 - General Ulcer CM Notes Start: 02/15/20 11:57 Freq: Status: Active Protocol: Activity Type Activity Date Activity User E-Sign Co-Sign Detail Recorded Client Recorded Date Recorded By Document 03/13/20 11:19 [facility] [id number] 03/13/20 11:26 [facility] 03/13/20 11:19 Wound Center Nurse 2 [Procedure/Treatment] 39-right lateral foot -Time 11:20 -Correct Patient Yes -Correct Side, Site, Position Yes -Correct Procedure Yes -Procedure Performed Yes -Type of Procedure Debridement -Clinical Debridement Subcutaneous -Tissue Removed Subcutaneous -Post Debridement (cm) - Length 1 -Post Debridement (cm) - Width 1.3 -Post Debridement (cm) - Depth 0.2 -Total Square (Post) (cm) 1.3 -Area of Debridement (cm) - Length 1 -Area of Debridement (cm) - Width 1.3 -Total Square (Area) (cm) 1.3 -Tunneling No -Undermining/Tunneling No -Circular Undermining No -Wound/Ulcer Outcome Not Healed -Ulcer Cleansing Rinsed/ Irrigated with Saline -Foul Odor after Cleansing No -Bioengineered Tissue No -Bleeding Controlled with Pressure -Offloading Yes -Type of Offloading Surgical Shoe -Treatment Response Procedure Tolerated Well -Debridement - Subq, 1st 20sq cm Yes #35 L Stump -Time 11:20 -Correct Patient Yes -Correct Side, Site, Position Yes -Correct Procedure Yes -Procedure Performed Yes -Type of Procedure Debridement -Clinical Debridement Subcutaneous -Tissue Removed Subcutaneous -Post Debridement (cm) - Length 3.2 -Post Debridement (cm) - Width 1.5 -Post Debridement (cm) - Depth 0.5 -Total Square (Post) (cm) 4.80 -Area of Debridement (cm) - Length 3.2 -Area of Debridement (cm) - Width 1.5 -Total Square (Area) (cm) 4.80 -Tunneling No -Undermining/Tunneling No -Circular Undermining No -Wound/Ulcer Outcome Not Healed -Ulcer Cleansing Rinsed/ Irrigated with Saline -Foul Odor after Cleansing No -Bioengineered Tissue No -Bleeding Controlled with Pressure -Offloading No -Treatment Response Procedure Tolerated Well -Debridement - Subq, 1st 20sq cm No #42- R MEDIAL FOOT -Time 11:21 -Correct Patient Yes -Correct Side, Site, Position Yes -Correct Procedure Yes -Procedure Performed Yes -Type of Procedure Debridement -Clinical Debridement Subcutaneous -Tissue Removed Subcutaneous -Post Debridement (cm) - Length 2 -Post Debridement (cm) - Width 0.5 -Post Debridement (cm) - Depth 0.2 -Total Square (Post) (cm) 1.0 -Area of Debridement (cm) - Length 2 -Area of Debridement (cm) - Width 0.5 -Total Square (Area) (cm) 1.0 -Tunneling No -Undermining/Tunneling No -Circular Undermining No -Wound/Ulcer Outcome Not Healed -Ulcer Cleansing Rinsed/ Irrigated with Saline -Foul Odor after Cleansing No -Bioengineered Tissue No -Bleeding Controlled with Pressure -Offloading Yes -Type of Offloading Surgical Shoe -Treatment Response Procedure Tolerated Well -Debridement - Subq, 1st 20sq cm No #37-right 2nd toe -Time 11:21 -Correct Patient Yes -Correct Side, Site, Position Yes -Correct Procedure Yes -Procedure Performed Yes -Type of Procedure Debridement -Clinical Debridement Subcutaneous -Tissue Removed Subcutaneous -Post Debridement (cm) - Length 1 -Post Debridement (cm) - Width 1 -Post Debridement (cm) - Depth 0.3 -Total Square (Post) (cm) 1 -Area of Debridement (cm) - Length 1 -Area of Debridement (cm) - Width 1 -Total Square (Area) (cm) 1 -Tunneling No -Undermining/Tunneling No -Circular Undermining No -Wound/Ulcer Outcome Not Healed -Ulcer Cleansing Rinsed/ Irrigated with Saline -Foul Odor after Cleansing No -Bioengineered Tissue No -Bleeding Controlled with Pressure -Offloading Yes -Type of Offloading Surgical Shoe -Treatment Response Procedure Tolerated Well -Debridement - Subq, 1st 20sq cm No [See Physician Procedure note for Specifics] Pain Scale: 0-10 Numeric [Pain] -Is Patient Pain Free? Yes Musculoskeletal: No Tenderness to Palpation of Joints or Extremities, - - Left BKA, right hallux amputation, in a motorized scooter Neurological: - - Lack of epicritic sensation consistent with neuropathy Psych/Mental Status: Normal Affect, Appropriate, Alert and oriented to time, place, person, mood and affect Debridement Note Post-Debridement Measurements/Treatment WC - Nurse 2 - General Ulcer CM Notes Start: 02/15/20 11:57 Freq: Status: Active Protocol: Activity Type Activity Date Activity User E-Sign Co-Sign Detail Recorded Client Recorded Date Recorded By Document 02/15/20 12:08 [id number] 02/15/20 12:12 Document 02/22/20 11:24 [id number] 02/22/20 11:35 Document 02/29/20 11:54 [id number] 02/29/20 12:00 Document 03/07/20 12:08 [id number] 03/07/20 12:13 Document 03/13/20 11:19 [id number] 03/13/20 11:26 02/15/20 02/22/20 02/29/20 12:08 11:24 11:54 Wound Center Nurse 2 39-right lateral foot -Time 12:08 11:25 11:54 -Correct Patient Yes Yes Yes -Correct Side, Site, Position Yes Yes Yes -Correct Procedure Yes Yes Yes -Procedure Performed Yes Yes Yes -Type of Procedure Debridement Debridement Debridement -Clinical Debridement Subcutaneous Subcutaneous Subcutaneous -Tissue Removed Subcutaneous Subcutaneous Subcutaneous -Post Debridement (cm) - Length 1.1 0.6 1.5 -Post Debridement (cm) - Width 1.2 0.6 1.1 -Post Debridement (cm) - Depth 0.3 0.1 0.2 -Total Square (Post) (cm) 1.32 0.36 1.65 -Area of Debridement (cm) - Length 1.1 0.6 1.5 -Area of Debridement (cm) - Width 1.2 0.6 1.1 -Total Square (Area) (cm) 1.32 0.36 1.65 -Tunneling No No No -Undermining/Tunneling No No No -Circular Undermining No No No -Wound/Ulcer Outcome Not Healed Not Healed Not Healed -Ulcer Cleansing Rinsed/ Rinsed/ Rinsed/ Irrigated with Irrigated with Irrigated with Saline Saline Saline -Foul Odor after Cleansing No No No -Bioengineered Tissue No No No -Bleeding Controlled with Pressure Pressure,Silver Pressure Nitrate -Offloading Yes No Yes -Type of Offloading Surgical Shoe Surgical Shoe -Treatment Response Procedure Procedure Procedure Tolerated Well Tolerated Well Tolerated Well -Debridement - Subq, 1st 20sq cm Yes No Yes #35 L Stump -Time 12:09 11:25 11:56 -Correct Patient Yes Yes Yes -Correct Side, Site, Position Yes Yes Yes -Correct Procedure Yes Yes Yes -Procedure Performed Yes Yes Yes -Type of Procedure Debridement Debridement Debridement -Clinical Debridement Subcutaneous Subcutaneous Subcutaneous -Tissue Removed Subcutaneous Subcutaneous Subcutaneous -Post Debridement (cm) - Length 1.2 2.5 1 -Post Debridement (cm) - Width 2.5 1.1 3 -Post Debridement (cm) - Depth 0.3 0.2 0.2 -Total Square (Post) (cm) 3.00 2.75 3 -Area of Debridement (cm) - Length 1.2 2.5 1 -Area of Debridement (cm) - Width 2.5 1.1 3 -Total Square (Area) (cm) 3.00 2.75 3 -Tunneling No No No -Undermining/Tunneling No No No -Circular Undermining No No No -Wound/Ulcer Outcome Not Healed Not Healed Not Healed -Ulcer Cleansing Rinsed/ Rinsed/ Rinsed/ Irrigated with Irrigated with Irrigated with Saline Saline Saline -Foul Odor after Cleansing No No No -Bioengineered Tissue No No No -Bleeding Controlled with Pressure Pressure Pressure -Offloading Yes Yes No -Type of Offloading Surgical Shoe Surgical Shoe -Treatment Response Procedure Procedure Procedure Tolerated Well Tolerated Well Tolerated Well -Debridement - Subq, 1st 20sq cm No No No #42- R MEDIAL FOOT -Time 12:11 11:27 11:57 -Correct Patient Yes Yes Yes -Correct Side, Site, Position Yes Yes Yes -Correct Procedure Yes Yes Yes -Procedure Performed Yes Yes Yes -Type of Procedure Debridement Debridement Debridement -Clinical Debridement Subcutaneous Subcutaneous Subcutaneous -Tissue Removed Subcutaneous Subcutaneous Subcutaneous -Post Debridement (cm) - Length 0.5 2.1 1.5 -Post Debridement (cm) - Width 1.1 0.6 0.5 -Post Debridement (cm) - Depth 0.5 0.1 0.2 -Total Square (Post) (cm) 0.55 1.26 0.75 -Area of Debridement (cm) - Length 0.5 2.1 1.5 -Area of Debridement (cm) - Width 1.1 0.6 0.5 -Total Square (Area) (cm) 0.55 1.26 0.75 -Tunneling No No No -Undermining/Tunneling No No No -Circular Undermining No No No -Wound/Ulcer Outcome Not Healed Not Healed Not Healed -Ulcer Cleansing Rinsed/ Rinsed/ Rinsed/ Irrigated with Irrigated with Irrigated with Saline Saline Saline -Foul Odor after Cleansing No No No -Bioengineered Tissue No No No -Bleeding Controlled with Pressure Pressure Pressure -Offloading Yes Yes Yes -Type of Offloading Surgical Shoe Surgical Shoe Surgical Shoe -Treatment Response Procedure Procedure Procedure Tolerated Well Tolerated Well Tolerated Well -Debridement - Subq, 1st 20sq cm No Yes No #37-right 2nd toe -Time 12:11 11:28 11:58 -Correct Patient Yes Yes Yes -Correct Side, Site, Position Yes Yes Yes -Correct Procedure Yes Yes Yes -Procedure Performed Yes Yes Yes -Type of Procedure Debridement Debridement Debridement -Clinical Debridement Subcutaneous Subcutaneous Subcutaneous -Tissue Removed Subcutaneous Subcutaneous Subcutaneous -Post Debridement (cm) - Length 1.3 2.5 3.2 -Post Debridement (cm) - Width 1.3 1.5 1.8 -Post Debridement (cm) - Depth 0.1 0.2 0.2 -Total Square (Post) (cm) 1.69 3.75 5.76 -Area of Debridement (cm) - Length 1.3 2.5 3.2 -Area of Debridement (cm) - Width 1.3 1.5 1.8 -Total Square (Area) (cm) 1.69 3.75 5.76 -Tunneling No No No -Undermining/Tunneling No No No -Circular Undermining No No No -Wound/Ulcer Outcome Not Healed Not Healed Not Healed -Ulcer Cleansing Rinsed/ Rinsed/ Rinsed/ Irrigated with Irrigated with Irrigated with Saline Saline Saline -Foul Odor after Cleansing No No No -Bioengineered Tissue No No No -Bleeding Controlled with Pressure Pressure Pressure -Offloading Yes Yes Yes -Type of Offloading Surgical Shoe Surgical Shoe Surgical Shoe -Treatment Response Procedure Procedure Procedure Tolerated Well Tolerated Well Tolerated Well -Debridement - Subq, 1st 20sq cm No No No Pain Scale: 0-10 Numeric Is Patient Pain Free? Yes Yes 03/07/20 03/13/20 12:08 11:19 Wound Center Nurse 2 39-right lateral foot -Time 12:09 11:20 -Correct Patient Yes Yes -Correct Side, Site, Position Yes Yes -Correct Procedure Yes Yes -Procedure Performed Yes Yes -Type of Procedure Debridement Debridement -Clinical Debridement Subcutaneous Subcutaneous -Tissue Removed Subcutaneous Subcutaneous -Post Debridement (cm) - Length 1.2 1 -Post Debridement (cm) - Width 0.5 1.3 -Post Debridement (cm) - Depth 0.2 0.2 -Total Square (Post) (cm) 0.60 1.3 -Area of Debridement (cm) - Length 1.2 1 -Area of Debridement (cm) - Width 0.5 1.3 -Total Square (Area) (cm) 0.60 1.3 -Tunneling No No -Undermining/Tunneling No No -Circular Undermining No No -Wound/Ulcer Outcome Not Healed Not Healed -Ulcer Cleansing Rinsed/ Rinsed/ Irrigated with Irrigated with Saline Saline -Foul Odor after Cleansing No No -Bioengineered Tissue No No -Bleeding Controlled with Pressure Pressure -Offloading Yes Yes -Type of Offloading Surgical Shoe Surgical Shoe -Treatment Response Procedure Procedure Tolerated Well Tolerated Well -Debridement - Subq, 1st 20sq cm Yes Yes #35 L Stump -Time 12:10 11:20 -Correct Patient Yes Yes -Correct Side, Site, Position Yes Yes -Correct Procedure Yes Yes -Procedure Performed Yes Yes -Type of Procedure Debridement Debridement -Clinical Debridement Subcutaneous Subcutaneous -Tissue Removed Subcutaneous Subcutaneous -Post Debridement (cm) - Length 1 3.2 -Post Debridement (cm) - Width 1.8 1.5 -Post Debridement (cm) - Depth 0.2 0.5 -Total Square (Post) (cm) 1.8 4.80 -Area of Debridement (cm) - Length 1 3.2 -Area of Debridement (cm) - Width 1.8 1.5 -Total Square (Area) (cm) 1.8 4.80 -Tunneling No No -Undermining/Tunneling No No -Circular Undermining No No -Wound/Ulcer Outcome Not Healed Not Healed -Ulcer Cleansing Rinsed/ Rinsed/ Irrigated with Irrigated with Saline Saline -Foul Odor after Cleansing No No -Bioengineered Tissue No No -Bleeding Controlled with Pressure Pressure -Offloading Yes No -Type of Offloading Surgical Shoe -Treatment Response Procedure Procedure Tolerated Well Tolerated Well -Debridement - Subq, 1st 20sq cm No No #42- R MEDIAL FOOT -Time 12:10 11:21 -Correct Patient Yes Yes -Correct Side, Site, Position Yes Yes -Correct Procedure Yes Yes -Procedure Performed Yes Yes -Type of Procedure Debridement Debridement -Clinical Debridement Subcutaneous Subcutaneous -Tissue Removed Subcutaneous Subcutaneous -Post Debridement (cm) - Length 1.8 2 -Post Debridement (cm) - Width 0.4 0.5 -Post Debridement (cm) - Depth 0.2 0.2 -Total Square (Post) (cm) 0.72 1.0 -Area of Debridement (cm) - Length 1.8 2 -Area of Debridement (cm) - Width 0.4 0.5 -Total Square (Area) (cm) 0.72 1.0 -Tunneling No No -Undermining/Tunneling No No -Circular Undermining No No -Wound/Ulcer Outcome Not Healed Not Healed -Ulcer Cleansing Rinsed/ Rinsed/ Irrigated with Irrigated with Saline Saline -Foul Odor after Cleansing No No -Bioengineered Tissue No No -Bleeding Controlled with Pressure Pressure -Offloading Yes Yes -Type of Offloading Surgical Shoe Surgical Shoe -Treatment Response Procedure Procedure Tolerated Well Tolerated Well -Debridement - Subq, 1st 20sq cm No No #37-right 2nd toe -Time 12:11 11:21 -Correct Patient Yes Yes -Correct Side, Site, Position Yes Yes -Correct Procedure Yes Yes -Procedure Performed Yes Yes -Type of Procedure Debridement Debridement -Clinical Debridement Subcutaneous Subcutaneous -Tissue Removed Subcutaneous Subcutaneous -Post Debridement (cm) - Length 0.6 1 -Post Debridement (cm) - Width 1 1 -Post Debridement (cm) - Depth 0.3 0.3 -Total Square (Post) (cm) 0.6 1 -Area of Debridement (cm) - Length 0.6 1 -Area of Debridement (cm) - Width 1 1 -Total Square (Area) (cm) 0.6 1 -Tunneling No No -Undermining/Tunneling No No -Circular Undermining No No -Wound/Ulcer Outcome Not Healed Not Healed -Ulcer Cleansing Rinsed/ Rinsed/ Irrigated with Irrigated with Saline Saline -Foul Odor after Cleansing No No -Bioengineered Tissue No No -Bleeding Controlled with Pressure Pressure -Offloading Yes Yes -Type of Offloading Surgical Shoe Surgical Shoe -Treatment Response Procedure Procedure Tolerated Well Tolerated Well -Debridement - Subq, 1st 20sq cm No No Pain Scale: 0-10 Numeric Is Patient Pain Free? Yes Yes - Nurse 3 - General Ulcer D/C NN Start: 02/15/20 11:57 Freq: Status: Active Protocol: Activity Type Activity Date Activity User E-Sign Co-Sign Detail Recorded Client Recorded Date Recorded By Document 02/15/20 12:19 [id number] 02/15/20 12:21 Document 02/22/20 11:35 [id number] 02/22/20 11:36 Document 02/29/20 12:07 [facility] [id number] 02/29/20 12:10 [facility] Document 03/07/20 12:23 KR [id number] 03/07/20 12:24 KR 02/15/20 02/22/20 02/29/20 12:19 11:35 12:07 Wound Care Nurse 3 39-right lateral foot -Ulcer Cleansing Rinsed/ Rinsed/ Rinsed/ Irrigated with Irrigated with Irrigated with Saline Saline Saline -Foul Odor after Cleansing No No No -Primary Dressing Applied Fibracol Plus Fibracol Plus Fibracol Plus 4x4 4x4 4x4 -Primary Dressing Covered/Secured with Dry Gauze & Dry Gauze & Dry Gauze & Roll Gauze, Roll Gauze, Roll Gauze, Secured with Secured with Secured with Tape Tape Tape -Other Covering abd -Fibracol Plus 4x4 1 1 1 #35 L Stump -Ulcer Cleansing Rinsed/ Rinsed/ Rinsed/ Irrigated with Irrigated with Irrigated with Saline Saline Saline -Foul Odor after Cleansing No No No -Primary Dressing Applied Fibracol Plus Fibracol Plus Fibracol Plus 4x4 4x4 4x4 -Primary Dressing Covered/Secured with Dry Gauze & Dry Gauze, Dry Gauze & Roll Gauze, Secured with Roll Gauze, Secured with Tape Secured with Tape Tape -Fibracol Plus 4x4 0 0 0 #42- R MEDIAL FOOT -Ulcer Cleansing Rinsed/ Rinsed/ Rinsed/ Irrigated with Irrigated with Irrigated with Saline Saline Saline -Foul Odor after Cleansing No No No -Primary Dressing Applied Fibracol Plus Fibracol Plus Fibracol Plus 4x4 4x4 4x4 -Primary Dressing Covered/Secured with Dry Gauze & Dry Gauze & Dry Gauze & Roll Gauze, Roll Gauze, Roll Gauze, Secured with Secured with Secured with Tape Tape Tape -Fibracol Plus 4x4 0 0 0 #37-right 2nd toe -Ulcer Cleansing Rinsed/ Rinsed/ Rinsed/ Irrigated with Irrigated with Irrigated with Saline Saline Saline -Foul Odor after Cleansing No No No -Primary Dressing Applied Fibracol Plus Fibracol Plus Fibracol Plus 4x4 4x4 4x4 -Primary Dressing Covered/Secured with Dry Gauze & Dry Gauze & Dry Gauze & Roll Gauze, Roll Gauze, Roll Gauze, Secured with Secured with Secured with Tape Tape Tape,Other -Other Covering abd -Fibracol Plus 4x4 0 0 0 Left -Other applied pts own tubigrip Right -Tubular Bandage Double Layer -Size of Tubigrip Used Size D -Size D ($) 0 -Other single tubigrip farrow wrap Treatment Response Procedure Tolerated Well Pain Scale: 0-10 Numeric Is Patient Pain Free? Yes Yes Yes WC - Visit Discharge Discharge Condition Stable Stable Stable Ambulatory Status Wheelchair Wheelchair Wheelchair Transportation private Private [facility] [place] [facility] transportation Accompanied by Medication Reconcilliation completed & Yes Yes provided to patient/care provider Clinical Summary of Care Provided Yes Yes Facility Type Home Health 03/07/20 12:23 Wound Care Nurse 3 39-right lateral foot -Ulcer Cleansing Rinsed/ Irrigated with Saline -Foul Odor after Cleansing No -Primary Dressing Applied Fibracol Plus 4x4 -Primary Dressing Covered/Secured with Dry Gauze & Roll Gauze, Secured with Tape -Other Covering -Fibracol Plus 4x4 1 #35 L Stump -Ulcer Cleansing Rinsed/ Irrigated with Saline -Foul Odor after Cleansing No -Primary Dressing Applied -Primary Dressing Covered/Secured with Dry Gauze & Roll Gauze, Secured with Tape -Fibracol Plus 4x4 #42- R MEDIAL FOOT -Ulcer Cleansing Rinsed/ Irrigated with Saline -Foul Odor after Cleansing No -Primary Dressing Applied -Primary Dressing Covered/Secured with Dry Gauze & Roll Gauze, Secured with Tape -Fibracol Plus 4x4 #37-right 2nd toe -Ulcer Cleansing Rinsed/ Irrigated with Saline -Foul Odor after Cleansing No -Primary Dressing Applied -Primary Dressing Covered/Secured with Dry Gauze & Roll Gauze, Secured with Tape -Other Covering -Fibracol Plus 4x4 Left -Other Right -Tubular Bandage -Size of Tubigrip Used -Size D ($) -Other Treatment Response Pain Scale: 0-10 Numeric Is Patient Pain Free? Yes WC - Visit Discharge Discharge Condition Stable Ambulatory Status Wheelchair Transportation Ambulance Accompanied by [email or web address] Medication Reconcilliation completed & provided to patient/care provider Clinical Summary of Care Provided Facility Type Wound debrided: Leg Laterality: Left Wound Grade/Stage: Grade 1 Type of Debridement: Excisional debridement Anesthesia Used: 4% Lidocaine Solution Depth: in the subcutaneous layer Percentage of wound debrided: 100 Instrument Used: 5mm curette Tissue Removed: Tissue removed includes fibrous, devitalized, biofilm, and slough tissue Severity: Fat Layer Exposed Amount of bleeding with debridement: Mild Bleeding Controlled with: Pressure Patient tolerated procedure well - Additional Wound Wound debrided: Lateral forefoot Laterality: Right Wound Grade/Stage: Grade 1 Type of Debridement: Excisional debridement Anesthesia Used: 4% Lidocaine Solution Depth: in the subcutaneous layer Percentage of wound debrided: 100 Instrument Used: 5mm curette Tissue Removed: Tissue removed includes fibrous, devitalized, biofilm, and slough tissue Severity: Fat Layer Exposed Amount of bleeding with debridement: Mild Bleeding Controlled with: Pressure Patient tolerated procedure: Patient tolerated procedure well - Additional Wound Wound debrided: Dorsal distal second toe Wound Grade/Stage: Grade 1 Type of Debridement: Excisional debridement Anesthesia Used: 4% Lidocaine Solution Depth: in the subcutaneous layer Percentage of wound debrided: 100 Instrument Used: 5mm curette Tissue Removed: Tissue removed includes fibrous, devitalized, biofilm, and slough tissue Severity: Fat Layer Exposed Amount of bleeding with debridement: Mild Bleeding Controlled with: Pressure Patient tolerated procedure: Patient tolerated procedure well - Additional Wound Wound debrided: Medial plantar forefoot Laterality: Right Wound Grade/Stage: Grade 1 Type of Debridement: Excisional debridement Anesthesia Used: 4% Lidocaine Solution Depth: in the subcutaneous layer Percentage of wound debrided: 100 Instrument Used: 5mm curette Tissue Removed: Tissue removed includes fibrous, devitalized, biofilm, and slough tissue Severity: Fat Layer Exposed Amount of bleeding with debridement: Mild Bleeding Controlled with: Pressure Patient tolerated procedure: Patient tolerated procedure well Assessment/Plan Active Problems Nonhealing amputation stump (Chronic) Walking difficulty due to ankle and foot (Chronic) Ulcer of left lower extremity with fat layer exposed (Chronic) Ulcer of right foot with fat layer exposed (Chronic) Obesity (Chronic) Diabetes mellitus with polyneuropathy (Chronic) Assessment: Open surgical wound anterior aspect left BKA stump. Peripheral vascular disease. Diabetes with neuropathy. Right second toe ulcer, jerez grade 1, no infection. Right plantar lateral forefoot ulcer, jerez grade 1, no infection. Right plantar medial forefoot ulcer, jerez grade 1, no infection Plan: I reviewed and discussed his case. He was reassured no signs of infection are noted today. For the anterior aspect left BKA stump, will continue Fibracol dressing changes daily. His ulcers to his right foot are noted. All bilateral lower extremity ulcer sites were debrided as noted in the clinical panel. To wash daily with soap and water. To change dressing with fibracol on the right foot also. To keep pressure off of the ulcer sites and a surgical shoe with heel weightbearing. To ambulate with his potential surgical shoe in place if able to as he presents today in automated wheelchair. His right foot surgical shoe was adjusted to more proximal position to ensure mechanical pressure is not applied to the second toe where his ulcer appears to look much better. To continue work with home physical therapy. To continue to optimize healing with improved glycemic index, continued weight reduction, and well- balanced [employer] nutrients. He was reassured no local signs of infection are noted today. His white blood cell count was 7.62 during his recent hospital admission before discharge. His hemoglobin A1c was 7.3%. To continue with edema management including his compression wraps and also lymphedema pumps. To return to clinic in [address] Hernández or to call sooner if you have any questions or concerns. It is noted he has E. coli in his water source and was advised not to clean his wounds with this water. Patient reports that paco laughlin has purchased bottled water for drinking and bathing wounds.
== END 2020-03-15 23:59 ==
LOC: WC 11:00
PROVIDERS: PCP Family Medicine; Visit Provider Surgery
DX: E11.621 Type 2 diabetes mellitus with foot ulcer (principal); L97.512 Non-pressure chronic ulcer of other part of right foot with fat layer exposed; E11.42 Type 2 diabetes mellitus with diabetic polyneuropathy; E66.9 Obesity, unspecified; R26.2 Difficulty in walking, not elsewhere classified; T87.89 Other complications of amputation stump; Y83.8 Other surgical procedures as the cause of abnormal reaction of the patient, or of later complication, without mention of misadventure at the time of the procedure; E11.51 Type 2 diabetes mellitus with diabetic peripheral angiopathy without gangrene
CPT/HCPCS: 11042

== ENCOUNTER → 2020-04-10 11:50 | Outpatient (CLI) | payer MEDICARE, MEDICAID, SELFPAY ==
[2020-04-04 11:20] VITALS: BMI 47.9
--- NOTE | 2020-04-10 12:00 | RAD_ITS ---
STUDY: X-RAY - RIGHT FOOT CLINICAL: Right foot ulcer second toe. TECHNIQUE: 3 view(s) of the foot. COMPARISON: Radiographs 04/07/2019. FINDINGS: There is a plantar calcaneal enthesophyte. Normal visualized subtalar, talonavicular, calcaneocuboid, tarsal and tarsometatarsal articulations. Normal metatarsi. There is amputation of the first digit at the level of the metatarsophalangeal joint. Normal second through fifth metatarsophalangeal joints. There is osseous destruction of the second distal phalanx suggestive of osteomyelitis. There is focal osteopenia of the second middle phalanx, possibly representing osteomyelitis. There is soft tissue swelling. There is vascular calcification. There is chronic calcific tendinitis in the Achilles tendon insertion as on the prior study. RAD/Foot min 3 Views IMPRESSION: Osseous destruction of the second distal phalanx suggestive of osteomyelitis and focal osteopenia of the second middle phalanx, possibly representing osteomyelitis. Soft tissue swelling. Electronically Signed: Bharathi Kinsey MD at 13:48 EST Tel , Service support ,
[2020-04-10 12:44] LABS: Erythrocyte Sedimentation Rate 124 mm/hr (0-20)
[2020-04-10 12:46] LABS: Absolute Lymphocyte Count 1.41 X10^3/uL (0.83-4.51); Absolute Neutrophil Count 3.3 X10^3/uL (2.0-7.7); Basophil# 0.04 X10^3/uL; Basophil% 0.7 % (0-1); Eosinophils% 8.4 % (0-5); Hematocrit 33.3 % (40-54); Hemoglobin 10.6 g/dL (13.0-16.5); Lymphocyte # 1.41 X10^3/ul (4.0); Lymphocyte % 23.6 % (19-41); Mean Corp Hgb Conc 31.8 g/dL (32-36); Mean Corpuscular Hgb 26.4 pg (27.0-32.0); Mean Platelet Vol. 10.1 fl (6.2-12.0); Monocyte# 0.73 X10^3/uL; Monocyte% 12.2 % (0-10); NRBC Flagged by Analyzer 0 % (0-5); Neutrophil # 3.26 X10^3/uL (2.7-7.7); Neutrophil % 54.6 % (47-70); Platelet Count 250 K/mm3 (150-450); RBC Distribution Width CV 14.7 % (11.6-14.6); RBC Distribution Width SD 44.9 fl (35.1-43.9); Red Blood Count 4.01 M/mm3 (4.6-6.2)
[2020-04-10 13:30] LABS: ALB/GLOB Ratio 0.4 RATIO (0.9-2.4); AST(SGOT) 17 U/L (15-37); Alanine Aminotransfer ALT/SGPT 7 U/L (16-61); Alkaline Phosphatase 81 U/L (45-117); Anion Gap 5 (5-15); BUN 20 mg/dL (7-18); BUN/Creat Ratio 12.4 RATIO (10-20); Calcium,Total 8.7 mg/dL (8.5-10.1); Chloride 110 mmol/L (98-107); Creatinine, Serum 1.61 mg/dL (0.70-1.30); EST Glomerular Filtration Rate 46 mL/min (>60); Est Glom Filt Rate - Afr Amer 56 mL/min (>60); Globulin 5.4 g/dL (2.2-4.2); Glucose 146 mg/dL (74-106); Protein, Total 7.4 g/dL (6.4-8.2); Sodium Level 138 mmol/L (136-145)
== END ==
PROVIDERS: PCP Family Medicine; Referring Provider Podiatrist; Visit Provider Podiatrist
DX: L97.513 Non-pressure chronic ulcer of other part of right foot with necrosis of muscle (principal)
CPT/HCPCS: 36415; 73630; 80053; 85025; 85652; 86140

== ENCOUNTER 2020-04-11 11:00 | Outpatient (RCR) | payer MEDICARE, MEDICAID, SELFPAY ==
[2020-03-16 00:15] VITALS: BP 186/73; PULSE 53; RESP 16; TEMP 36.9
[2020-03-21 10:45] VITALS: BP 200/56; PULSE 62; TEMP 36.4; BMI 47.9
--- NOTE | 2020-03-21 13:32 | PN.PCM_ITS ---
(1) Injury of right foot including toes Status: Acute Code(s): S99.921A - Unspecified injury of right foot, initial encounter (2) Ulcer of right foot with fat layer exposed Status: Chronic Code(s): L97.512 - Non-pressure chronic ulcer of other part of right foot with fat layer exposed (3) Ulcer of left lower extremity with fat layer exposed Status: Chronic Code(s): L97.922 - Non-pressure chronic ulcer of unspecified part of left lower leg with fat layer exposed (4) Exposure to E. coli Status: Resolved Code(s): Z20.01 - Contact with and (suspected) exposure to intestinal infectious diseases due to Escherichia coli (E. coli) (5) Nonhealing amputation stump Status: Chronic Code(s): T87.89 - Other complications of amputation stump (6) Type 2 diabetes mellitus with diabetic polyneuropathy Status: Chronic Qualifiers: Code(s): E11.42 - Type 2 diabetes mellitus with diabetic polyneuropathy (7) Type 2 diabetes mellitus with diabetic polyneuropathy Status: Chronic Code(s): E11.42 - Type 2 diabetes mellitus with diabetic polyneuropathy Type of Wound Date of Service: 03/21/20 Chief Complaint: Open surgical wound anterior aspect left BKA stump. Right second toe ulcer. Right plantar lateral foot ulcer. 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 He also has multiple right foot ulcers, and has been performing dressing changes as advised. He denies fever, chills, nausea, vomiting. He denies redness or odor. He has been trying to offload and keep his swelling reduced by wearing Tubigrip compression dressings. He denies redness or odor. He is ambulating in a motorized scooter. He reports he has E. coli in his water which has been treated and resolved. He relates his nephew ran over his toe with a toy scooter and this caused more bleeding and swelling. He has also been increasingly concerned with the sores in his mouth and is scheduled to see infectious disease today. Progress of Wound: Left below-knee amputation with ulcer stable. Stable right foot ulcers - Physical Exam Vital Signs Temp Pulse Resp BP 97.5 F L 62 16 200/56 H 03/21/20 10:45 03/21/20 10:45 03/16/20 00:15 03/21/20 10:45 General: Alert, Oriented x3, Cooperative, No apparent distress HEENT: Atraumatic Extremities: No cyanosis, Capillary Refill Less than 3 Seconds, No Calf Tenderness, Diminished Peripheral Pulses, Edema Skin: Ulcer/ Wound - No purulence, erythema, streaking, odor, acute infection. There is increased skin peeling and slough to the second toe with edema at his recent injury site. The nail is not present. There is no necrosis or deep tissue exposure. He has a stable left leg ulcer also. His skin is hairless/atrophic Wound Measurements and Assessment WC - Nurse 1 - General Ulcer Measurement Start: 03/21/20 10:45 Freq: Status: Active Protocol: Activity Type Activity Date Activity User E-Sign Co-Sign Detail Recorded Client Recorded Date Recorded By Document 03/21/20 10:45 JEROD [id number] 03/21/20 10:56 JEROD 03/21/20 10:45 Wound Center Nurse 1 [Ulcer Assessment] 39-right lateral foot -Current Size (cm) - Length 2 -Current Size (cm) - Width 2.1 -Current Size (cm) - Depth 0.2 -Total Square Cm 4.2 -Exudate Amt Small -Exudate Type Serosanguineous -Wound Margin Distinct, Outline Attached -Necrosis Amt Small (1-33%) -Necrotic Tissue Type Adherent Slough -Texture (Susy-wound Skin Appearance) Assessed, Scarring -Moisture (Susy-wound Skin Appearance No Abnormality, ) Assessed -Color (Susy-wound Skin Appearance) No Abnormality, Assessed -Ulcer Cleansing soap and water -Foul Odor after Cleansing No -Anesthetic Used 4% Lidocaine Solution #35 L Stump -Current Size (cm) - Length 1 -Current Size (cm) - Width 2 -Current Size (cm) - Depth 0.2 -Total Square Cm 2 -Exudate Amt Medium -Exudate Type Serosanguineous -Wound Margin Distinct, Outline Attached -Granulation Amt Medium (34-66%) -Granulation Quality Red -Necrosis Amt Medium (34-66%) -Necrotic Tissue Type Adherent Slough -Texture (Susy-wound Skin Appearance) Assessed, Scarring -Moisture (Susy-wound Skin Appearance No Abnormality, ) Assessed -Color (Susy-wound Skin Appearance) No Abnormality, Assessed -Temperature (Susy-wound Skin No Abnormality Appearance) (Pt Warm) -Tenderness on Palpation (Susy-wound No Skin Appearance) -Ulcer Cleansing soap and water -Foul Odor after Cleansing No -Anesthetic Used 4% Lidocaine Solution #42- R MEDIAL FOOT -Current Size (cm) - Length 0.7 -Current Size (cm) - Width 1.7 -Current Size (cm) - Depth 0.2 -Total Square Cm 1.19 -Exudate Amt Large -Exudate Type Yellow/Green -Wound Margin Distinct, Outline Attached -Necrosis Amt Large (67-100%) -Necrotic Tissue Type Adherent Slough -Texture (Susy-wound Skin Appearance) Assessed, Scarring -Moisture (Susy-wound Skin Appearance No Abnormality, ) Assessed -Temperature (Susy-wound Skin No Abnormality Appearance) (Pt Warm) -Tenderness on Palpation (Susy-wound No Skin Appearance) -Ulcer Cleansing soap and water -Foul Odor after Cleansing No -Anesthetic Used 4% Lidocaine Solution #37-right 2nd toe -Current Size (cm) - Length 3 -Current Size (cm) - Width 1.2 -Current Size (cm) - Depth 0.2 -Total Square Cm 3.6 -Exudate Amt Large -Exudate Type Yellow/Green -Wound Margin Distinct, Outline Attached -Necrosis Amt Large (67-100%) -Necrotic Tissue Type Adherent Slough -Texture (Susy-wound Skin Appearance) Assessed, Scarring -Moisture (Susy-wound Skin Appearance No Abnormality, ) Assessed -Color (Susy-wound Skin Appearance) No Abnormality, Assessed -Temperature (Susy-wound Skin No Abnormality Appearance) (Pt Warm) -Tenderness on Palpation (Susy-wound No Skin Appearance) -Ulcer Cleansing soap and water WC - Nurse 2 - General Ulcer CM Notes Start: 03/21/20 10:45 Freq: Status: Active Protocol: Activity Type Activity Date Activity User E-Sign Co-Sign Detail Recorded Client Recorded Date Recorded By Document 03/21/20 12:48 MARCOS [id number] 03/21/20 12:51 PL 03/21/20 12:48 Wound Center Nurse 2 [Procedure/Treatment] 39-right lateral foot -Time 11:02 -Correct Patient Yes -Correct Side, Site, Position Yes -Correct Procedure Yes -Procedure Performed Yes -Type of Procedure Debridement -Clinical Debridement Subcutaneous -Tissue Removed Subcutaneous -Post Debridement (cm) - Length 2 -Post Debridement (cm) - Width 2.1 -Post Debridement (cm) - Depth 0.2 -Total Square (Post) (cm) 4.2 -Area of Debridement (cm) - Length 2 -Area of Debridement (cm) - Width 2.1 -Total Square (Area) (cm) 4.2 -Tunneling No -Undermining/Tunneling No -Circular Undermining No -Wound/Ulcer Outcome Not Healed -Ulcer Cleansing Rinsed/ Irrigated with Saline -Foul Odor after Cleansing No -Bioengineered Tissue No -Bleeding Controlled with Pressure -Treatment Response Procedure Tolerated Well -Debridement - Subq, 1st 20sq cm No #35 L Stump -Time 11:02 -Correct Patient Yes -Correct Side, Site, Position Yes -Correct Procedure Yes -Procedure Performed Yes -Type of Procedure Debridement -Clinical Debridement Epidermis / Dermis -Tissue Removed Subcutaneous -Post Debridement (cm) - Length 1 -Post Debridement (cm) - Width 2 -Post Debridement (cm) - Depth 0.2 -Total Square (Post) (cm) 2 -Area of Debridement (cm) - Length 1 -Area of Debridement (cm) - Width 2 -Total Square (Area) (cm) 2 -Tunneling No -Undermining/Tunneling No -Circular Undermining No -Wound/Ulcer Outcome Not Healed -Ulcer Cleansing Rinsed/ Irrigated with Saline -Foul Odor after Cleansing No -Bioengineered Tissue No -Debridement - Open, 1st 20sq cm No #42- R MEDIAL FOOT -Time 11:02 -Correct Patient Yes -Correct Side, Site, Position Yes -Correct Procedure Yes -Procedure Performed Yes -Type of Procedure Debridement -Clinical Debridement Subcutaneous -Tissue Removed Subcutaneous -Post Debridement (cm) - Length 0.7 -Post Debridement (cm) - Width 1.7 -Post Debridement (cm) - Depth 0.2 -Total Square (Post) (cm) 1.19 -Area of Debridement (cm) - Length 0.7 -Area of Debridement (cm) - Width 1.7 -Total Square (Area) (cm) 1.19 -Tunneling No -Undermining/Tunneling No -Circular Undermining No -Wound/Ulcer Outcome Not Healed -Ulcer Cleansing Rinsed/ Irrigated with Saline -Foul Odor after Cleansing No -Bioengineered Tissue No -Bleeding Controlled with Pressure -Treatment Response Procedure Tolerated Well -Debridement - Subq, 1st 20sq cm No #37-right 2nd toe -Time 11:02 -Correct Patient Yes -Correct Side, Site, Position Yes -Correct Procedure Yes -Procedure Performed Yes -Type of Procedure Debridement -Clinical Debridement Subcutaneous -Tissue Removed Subcutaneous -Post Debridement (cm) - Length 3 -Post Debridement (cm) - Width 1.2 -Post Debridement (cm) - Depth 0.2 -Total Square (Post) (cm) 3.6 -Area of Debridement (cm) - Length 3 -Area of Debridement (cm) - Width 1.2 -Total Square (Area) (cm) 3.6 -Tunneling No -Undermining/Tunneling No -Circular Undermining No -Wound/Ulcer Outcome Not Healed -Ulcer Cleansing Rinsed/ Irrigated with Saline -Foul Odor after Cleansing No -Bioengineered Tissue No -Bleeding Controlled with Pressure -Treatment Response Procedure Tolerated Well -Debridement - Subq, 1st 20sq cm Yes [See Physician Procedure note for Specifics] Pain Scale: 0-10 Numeric [Pain] -Is Patient Pain Free? Yes WC - Nurse 3 - General Ulcer D/C NN Start: 03/21/20 10:45 Freq: Status: Active Protocol: Activity Type Activity Date Activity User E-Sign Co-Sign Detail Recorded Client Recorded Date Recorded By Document 03/21/20 11:12 JEROD [id number] 03/21/20 11:13 JEROD 03/21/20 11:12 Wound Care Nurse 3 [Wound Dressing] 39-right lateral foot -Ulcer Cleansing Rinsed/ Irrigated with Saline -Foul Odor after Cleansing No -Primary Dressing Covered/Secured Dry Gauze & with Roll Gauze, Secured with Tape #35 L Stump -Ulcer Cleansing Rinsed/ Irrigated with Saline -Primary Dressing Covered/Secured Dry Gauze & with Roll Gauze, Secured with Tape #42- R MEDIAL FOOT -Ulcer Cleansing Rinsed/ Irrigated with Saline -Foul Odor after Cleansing No -Primary Dressing Covered/Secured Dry Gauze & with Roll Gauze, Secured with Tape #37-right 2nd toe -Ulcer Cleansing Rinsed/ Irrigated with Saline -Foul Odor after Cleansing No -Primary Dressing Covered/Secured Dry Gauze & with Roll Gauze, Secured with Tape Pain Scale: 0-10 Numeric [Pain] -Is Patient Pain Free? Yes WC - Visit Discharge [Visit Discharge Information] -Discharge Condition Stable -Ambulatory Status Wheelchair -Transportation Ambulance Musculoskeletal: No Tenderness to Palpation of Joints or Extremities, Muscle Wasting, - - Left below-knee amputation Neurological: - - Lack of normal epicritic sensation is consistent with neuropathy status Psych/Mental Status: Normal Affect, Appropriate Debridement Note Post-Debridement Measurements/Treatment WC - Nurse 2 - General Ulcer CM Notes Start: 03/21/20 10:45 Freq: Status: Active Protocol: Activity Type Activity Date Activity User E-Sign Co-Sign Detail Recorded Client Recorded Date Recorded By Document 03/21/20 12:48 PL [id number] 03/21/20 12:51 PL 03/21/20 12:48 Wound Center Nurse 2 39-right lateral foot -Time 11:02 -Correct Patient Yes -Correct Side, Site, Position Yes -Correct Procedure Yes -Procedure Performed Yes -Type of Procedure Debridement -Clinical Debridement Subcutaneous -Tissue Removed Subcutaneous -Post Debridement (cm) - Length 2 -Post Debridement (cm) - Width 2.1 -Post Debridement (cm) - Depth 0.2 -Total Square (Post) (cm) 4.2 -Area of Debridement (cm) - Length 2 -Area of Debridement (cm) - Width 2.1 -Total Square (Area) (cm) 4.2 -Tunneling No -Undermining/Tunneling No -Circular Undermining No -Wound/Ulcer Outcome Not Healed -Ulcer Cleansing Rinsed/ Irrigated with Saline -Foul Odor after Cleansing No -Bioengineered Tissue No -Bleeding Controlled with Pressure -Treatment Response Procedure Tolerated Well -Debridement - Subq, 1st 20sq cm No #35 L Stump -Time 11:02 -Correct Patient Yes -Correct Side, Site, Position Yes -Correct Procedure Yes -Procedure Performed Yes -Type of Procedure Debridement -Clinical Debridement Epidermis / Dermis -Tissue Removed Subcutaneous -Post Debridement (cm) - Length 1 -Post Debridement (cm) - Width 2 -Post Debridement (cm) - Depth 0.2 -Total Square (Post) (cm) 2 -Area of Debridement (cm) - Length 1 -Area of Debridement (cm) - Width 2 -Total Square (Area) (cm) 2 -Tunneling No -Undermining/Tunneling No -Circular Undermining No -Wound/Ulcer Outcome Not Healed -Ulcer Cleansing Rinsed/ Irrigated with Saline -Foul Odor after Cleansing No -Bioengineered Tissue No -Debridement - Open, 1st 20sq cm No #42- R MEDIAL FOOT -Time 11:02 -Correct Patient Yes -Correct Side, Site, Position Yes -Correct Procedure Yes -Procedure Performed Yes -Type of Procedure Debridement -Clinical Debridement Subcutaneous -Tissue Removed Subcutaneous -Post Debridement (cm) - Length 0.7 -Post Debridement (cm) - Width 1.7 -Post Debridement (cm) - Depth 0.2 -Total Square (Post) (cm) 1.19 -Area of Debridement (cm) - Length 0.7 -Area of Debridement (cm) - Width 1.7 -Total Square (Area) (cm) 1.19 -Tunneling No -Undermining/Tunneling No -Circular Undermining No -Wound/Ulcer Outcome Not Healed -Ulcer Cleansing Rinsed/ Irrigated with Saline -Foul Odor after Cleansing No -Bioengineered Tissue No -Bleeding Controlled with Pressure -Treatment Response Procedure Tolerated Well -Debridement - Subq, 1st 20sq cm No #37-right 2nd toe -Time 11:02 -Correct Patient Yes -Correct Side, Site, Position Yes -Correct Procedure Yes -Procedure Performed Yes -Type of Procedure Debridement -Clinical Debridement Subcutaneous -Tissue Removed Subcutaneous -Post Debridement (cm) - Length 3 -Post Debridement (cm) - Width 1.2 -Post Debridement (cm) - Depth 0.2 -Total Square (Post) (cm) 3.6 -Area of Debridement (cm) - Length 3 -Area of Debridement (cm) - Width 1.2 -Total Square (Area) (cm) 3.6 -Tunneling No -Undermining/Tunneling No -Circular Undermining No -Wound/Ulcer Outcome Not Healed -Ulcer Cleansing Rinsed/ Irrigated with Saline -Foul Odor after Cleansing No -Bioengineered Tissue No -Bleeding Controlled with Pressure -Treatment Response Procedure Tolerated Well -Debridement - Subq, 1st 20sq cm Yes Pain Scale: 0-10 Numeric Is Patient Pain Free? Yes WC - Nurse 3 - General Ulcer D/C NN Start: 03/21/20 10:45 Freq: Status: Active Protocol: Activity Type Activity Date Activity User E-Sign Co-Sign Detail Recorded Client Recorded Date Recorded By Document 03/21/20 11:12 JEROD [id number] 03/21/20 11:13 KR 03/21/20 11:12 Wound Care Nurse 3 39-right lateral foot -Ulcer Cleansing Rinsed/ Irrigated with Saline -Foul Odor after Cleansing No -Primary Dressing Covered/Secured with Dry Gauze & Roll Gauze, Secured with Tape #35 L Stump -Ulcer Cleansing Rinsed/ Irrigated with Saline -Primary Dressing Covered/Secured with Dry Gauze & Roll Gauze, Secured with Tape #42- R MEDIAL FOOT -Ulcer Cleansing Rinsed/ Irrigated with Saline -Foul Odor after Cleansing No -Primary Dressing Covered/Secured with Dry Gauze & Roll Gauze, Secured with Tape #37-right 2nd toe -Ulcer Cleansing Rinsed/ Irrigated with Saline -Foul Odor after Cleansing No -Primary Dressing Covered/Secured with Dry Gauze & Roll Gauze, Secured with Tape Pain Scale: 0-10 Numeric Is Patient Pain Free? Yes WC - Visit Discharge Discharge Condition Stable Ambulatory Status Wheelchair Transportation Ambulance Wound debrided: leg at bka stump Laterality: Right - g Wound Grade/Stage: grade 1 Type of Debridement: Excisional debridement Anesthesia Used: 5% Lidocaine Gel Depth: in the subcutaneous layer Percentage of wound debrided: 100 Instrument Used: #15 blade Tissue Removed: fibrous, devitalized subcutaneous, biofilm, slough Severity: Fat Layer Exposed Amount of bleeding with debridement: Mild Bleeding Controlled with: Pressure Patient tolerated procedure well - Additional Wound Wound debrided: dorsal 2nd toe, lateral foot, medial foot Laterality: Right Wound Grade/Stage: grade 1 Type of Debridement: Excisional debridement Anesthesia Used: 5% Lidocaine Gel Depth: in the subcutaneous layer Percentage of wound debrided: 100 Instrument Used: #15 blade Tissue Removed: fibrous, devitalized subcutaneous, biofilm, slough Severity: Fat Layer Exposed Amount of bleeding with debridement: Mild Bleeding Controlled with: Pressure Patient tolerated procedure: Patient tolerated procedure well Assessment/Plan Active Problems Injury of right foot including toes (Acute) Nonhealing amputation stump (Chronic) Type 2 diabetes mellitus with diabetic polyneuropathy (Chronic) Ulcer of left lower extremity with fat layer exposed (Chronic) Ulcer of right foot with fat layer exposed (Chronic) Type 2 diabetes mellitus with diabetic polyneuropathy (Chronic) Assessment: Open surgical wound anterior aspect left BKA stump. Injury right second toe, traumatic; work-up in process. Peripheral vascular disease. Diabetes with neuropathy. Right second toe ulcer, jerez grade 1, no infection. Right plantar lateral forefoot ulcer, jerez grade 1, no infection. Right plantar medial forefoot ulcer, jerez grade 1, no infection Plan: I reviewed and discussed his case. He was reassured no signs of infection are noted today. For the anterior aspect left BKA stump, will continue Fibracol dressing changes daily. His ulcers to his right foot are noted. All bilateral lower extremity ulcer sites were debrided as noted in the clinical panel. To wash daily with soap and water. To change dressing with fibracol on the right foot also. To keep pressure off of the ulcer sites and a surgical shoe with heel weightbearing. To ambulate with his potential surgical shoe in place if able to as he presents today in automated wheelchair. His right foot surgical shoe was adjusted to more proximal position to ensure mechanical pressure is not applied to the second toe previously. His recent injury is noted and I recommend an x-ray to look for any dislocations or fractures. An order was provided. To continue work with home physical therapy to prevent deconditioning and to promote safe ambulation, and for wound care. To continue to optimize healing with improved glycemic index, continued weight reduction, and well- balanced [employer] nutrients. He was reassured no local signs of infection are noted today. Nutritional referrals were previously recommended. His significant weight loss is noted which may be a result of his significant dietary changes versus some other autoimmune or immunocompromise status given his oral lesion developments and ongoing delays in healing. His hemoglobin A1c is significantly improved to 6.9%. His white blood cell count was 7.62 during his recent hospital admission before discharge. To continue with edema management including his compression wraps and also lymphedema pumps. To return to clinic in 1 week or to call sooner if you have any questions or concerns. It is noted he has E. coli in his water source and this has been addressed and resolved. He also saw infectious disease today who recommended a referral for a biopsy with ENT. 24 minutes was spent on this encounter. This included face to face and non face to face care including preparing for the visit, reviewing the history, performing the exam, counseling and providing education to the patient, family, or caregiver, ordering medications/test/ procedures if indicated as documented, communicating with other healthcare providers, documenting information in the medical record, interpreting / sharing this information when indicated as documented, and care coordination.
[2020-03-28 11:19] VITALS: BP 164/52; RESP 20; TEMP 36.5; BMI 47.9
--- NOTE | 2020-03-28 13:59 | PCM.WC.PN ---
(1) Ulcer of right lower extremity with fat layer exposed Status: Acute Code(s): L97.912 - Non-pressure chronic ulcer of unspecified part of right lower leg with fat layer exposed (2) Injury of right foot including toes Status: Acute Qualifiers: Encounter type: subsequent encounter Qualified Code(s): S99.921D - Unspecified injury of right foot, subsequent encounter Code(s): S99.921A - Unspecified injury of right foot, initial encounter (3) Ulcer of right foot with fat layer exposed Status: Chronic Code(s): L97.512 - Non-pressure chronic ulcer of other part of right foot with fat layer exposed (4) Ulcer of left lower extremity with fat layer exposed Status: Chronic Code(s): L97.922 - Non-pressure chronic ulcer of unspecified part of left lower leg with fat layer exposed (5) Nonhealing amputation stump Status: Chronic Code(s): T87.89 - Other complications of amputation stump (6) Type 2 diabetes mellitus with diabetic polyneuropathy Status: Chronic Qualifiers: Code(s): E11.42 - Type 2 diabetes mellitus with diabetic polyneuropathy Type of Wound Date of Service: 03/28/20 Chief Complaint: Open surgical wound anterior aspect left BKA stump. Right second toe ulcer. Right plantar lateral foot ulcer. 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 He also has multiple right foot ulcers, and has been performing dressing changes as advised. He denies fever, chills, nausea, vomiting. He denies redness or odor. He has been trying to offload and keep his swelling reduced by wearing Tubigrip compression dressings. He denies redness or odor. He is ambulating in a motorized scooter. He relates his nephew ran over his toe with a toy scooter and this caused more bleeding and swelling. He was advised to get a foot x-ray and he did not do this yet. He is scheduled to see his ear nose and throat physician later today for potential biopsy. He also relates he has a new ulcer to the back of his right leg that is potentially from fluctuating edema and compression garment application. He denies pain, redness or odor. Progress of Wound: Left below-knee amputation with ulcer stable. Stable right foot ulcers - Physical Exam Vital Signs Temp Pulse Resp BP 97.7 F L 62 20 H 164/52 H 03/28/20 11:19 03/21/20 10:45 03/28/20 11:19 03/28/20 11:19 General: Alert, Oriented x3, Cooperative, No apparent distress Extremities: No cyanosis, No edema, No Calf Tenderness, Diminished Peripheral Pulses, Edema Skin: Ulcer/ Wound - No purulence, erythema, streaking, odor, infection. Decreased maceration to right second toe. No exposed bone or joint. New skin discontinuity of subhemorrhagic and granular tissue to the posterior right leg without infection., - - His skin is hairless and atrophic. Wound Measurements and Assessment WC - Nurse 1 - General Ulcer Measurement Start: 03/21/20 10:45 Freq: Status: Active Protocol: Activity Type Activity Date Activity User E-Sign Co-Sign Detail Recorded Client Recorded Date Recorded By Document 03/28/20 11:19 DL [id number] 03/28/20 11:33 DL 03/28/20 11:19 Wound Center Nurse 1 [Ulcer Assessment] 39-right lateral foot -Current Size (cm) - Length 0.1 -Current Size (cm) - Width 0.1 -Current Size (cm) - Depth 0.1 -Total Square Cm 0.01 -Photo Taken No -Exudate Amt None Present -Wound Margin Thickened -Granulation Amt Large (67-100%) -Granulation Quality Pale -Necrosis Amt Small (1-33%) -Necrotic Tissue Type Adherent Slough -Structure Exposed N/A -Texture (Susy-wound Skin Appearance) Scarring -Moisture (Susy-wound Skin Appearance Dry/Scaly ) -Color (Susy-wound Skin Appearance) Hemosiderin Staining -Temperature (Susy-wound Skin No Abnormality Appearance) (Pt Warm) -Tenderness on Palpation (Susy-wound No Skin Appearance) -Ulcer Cleansing Wound Cleanser -Foul Odor after Cleansing No -Anesthetic Used 4% Lidocaine Solution #35 L Stump -Current Size (cm) - Length 1 -Current Size (cm) - Width 3.5 -Current Size (cm) - Depth 0.2 -Total Square Cm 3.5 -Photo Taken No -Exudate Amt Small -Exudate Type Serosanguineous -Wound Margin Thickened -Granulation Amt Medium (34-66%) -Granulation Quality Pale,[place] -Necrosis Amt Small (1-33%) -Necrotic Tissue Type Adherent Slough -Structure Exposed N/A -Texture (Susy-wound Skin Appearance) Scarring -Moisture (Susy-wound Skin Appearance Dry/Scaly ) -Color (Susy-wound Skin Appearance) Hemosiderin Staining -Temperature (Susy-wound Skin No Abnormality Appearance) (Pt Warm) -Tenderness on Palpation (Susy-wound No Skin Appearance) -Ulcer Cleansing Wound Cleanser -Foul Odor after Cleansing No -Anesthetic Used 4% Lidocaine Solution #42- R MEDIAL FOOT -Current Size (cm) - Length 1.7 -Current Size (cm) - Width 0.5 -Current Size (cm) - Depth 0.3 -Total Square Cm 0.85 -Photo Taken No -Exudate Amt Small -Exudate Type Serosanguineous -Wound Margin Thickened -Granulation Amt Large (67-100%) -Granulation Quality Red -Necrosis Amt Small (1-33%) -Necrotic Tissue Type Adherent Slough -Structure Exposed N/A -Texture (Susy-wound Skin Appearance) Scarring -Moisture (Susy-wound Skin Appearance Dry/Scaly ) -Color (Susy-wound Skin Appearance) Hemosiderin Staining -Temperature (Susy-wound Skin No Abnormality Appearance) (Pt Warm) -Tenderness on Palpation (Susy-wound No Skin Appearance) -Ulcer Cleansing Wound Cleanser -Foul Odor after Cleansing No -Anesthetic Used 4% Lidocaine Solution #37-right 2nd toe -Current Size (cm) - Length 2.8 -Current Size (cm) - Width 1.5 -Current Size (cm) - Depth 0.3 -Total Square Cm 4.20 -Photo Taken No -Exudate Amt Small -Exudate Type Serosanguineous -Wound Margin Thickened -Granulation Amt Medium (34-66%) -Granulation Quality Pale,[place] -Necrosis Amt Medium (34-66%) -Necrotic Tissue Type Adherent Slough -Structure Exposed N/A -Texture (Susy-wound Skin Appearance) Localized Edema ,Scarring -Moisture (Susy-wound Skin Appearance Dry/Scaly ) -Color (Susy-wound Skin Appearance) Hemosiderin Staining -Temperature (Susy-wound Skin No Abnormality Appearance) (Pt Warm) -Tenderness on Palpation (Susy-wound No Skin Appearance) -Ulcer Cleansing Wound Cleanser -Foul Odor after Cleansing No -Anesthetic Used 4% Lidocaine Solution [Edema Assessment] -Right Calf (cm) 45 -Right Ankle (cm) 29 WC - Nurse 2 - General Ulcer CM Notes Start: 03/21/20 10:45 Freq: Status: Active Protocol: Activity Type Activity Date Activity User E-Sign Co-Sign Detail Recorded Client Recorded Date Recorded By Document 03/28/20 11:42 NORRIS [id number] 03/28/20 11:52 NORRIS 03/28/20 11:42 Wound Center Nurse 2 [Procedure/Treatment] 43-RIGHT POSTERIOR UPPER LEG -Time 11:51 -Correct Patient No -Correct Side, Site, Position No -Correct Procedure No -Procedure Performed No -Post Debridement (cm) - Length 2.6 -Post Debridement (cm) - Width 2.4 -Post Debridement (cm) - Depth 0.1 -Total Square (Post) (cm) 6.24 -Area of Debridement (cm) - Length 2.6 -Area of Debridement (cm) - Width 2.4 -Total Square (Area) (cm) 6.24 -Tunneling No -Undermining/Tunneling No -Circular Undermining No -Wound/Ulcer Outcome Not Healed -Ulcer Cleansing Rinsed/ Irrigated with Saline -Foul Odor after Cleansing No -Bioengineered Tissue No -Bleeding Controlled with Pressure -Offloading No -Treatment Response Procedure Tolerated Well -Debridement - Subq, 1st 20sq cm No 39-right lateral foot -Time 11:44 -Correct Patient Yes -Correct Side, Site, Position Yes -Correct Procedure Yes -Procedure Performed Yes -Type of Procedure Debridement -Clinical Debridement Subcutaneous -Tissue Removed Subcutaneous -Post Debridement (cm) - Length 1 -Post Debridement (cm) - Width 0.5 -Post Debridement (cm) - Depth 0.2 -Total Square (Post) (cm) 0.5 -Area of Debridement (cm) - Length 1 -Area of Debridement (cm) - Width 0.5 -Total Square (Area) (cm) 0.5 -Tunneling No -Undermining/Tunneling No -Circular Undermining No -Wound/Ulcer Outcome Not Healed -Ulcer Cleansing Rinsed/ Irrigated with Saline -Foul Odor after Cleansing No -Bioengineered Tissue No -Bleeding Controlled with Pressure -Offloading No -Treatment Response Procedure Tolerated Well -Debridement - Subq, 1st 20sq cm Yes #35 L Stump -Time 11:46 -Correct Patient Yes -Correct Side, Site, Position Yes -Correct Procedure Yes -Procedure Performed Yes -Type of Procedure Debridement -Clinical Debridement Epidermis / Dermis -Tissue Removed Epidermis, Dermis -Post Debridement (cm) - Length 1 -Post Debridement (cm) - Width 3.5 -Post Debridement (cm) - Depth 0.2 -Total Square (Post) (cm) 3.5 -Area of Debridement (cm) - Length 1 -Area of Debridement (cm) - Width 3.5 -Total Square (Area) (cm) 3.5 -Tunneling No -Undermining/Tunneling No -Circular Undermining No -Wound/Ulcer Outcome Not Healed -Ulcer Cleansing Rinsed/ Irrigated with Saline -Foul Odor after Cleansing No -Bioengineered Tissue No -Bleeding Controlled with Pressure -Offloading Yes -Type of Offloading Surgical Shoe -Treatment Response Procedure Tolerated Well -Debridement - Open, 1st 20sq cm Yes #42- R MEDIAL FOOT -Time 11:46 -Correct Patient Yes -Correct Side, Site, Position Yes -Correct Procedure Yes -Procedure Performed Yes -Type of Procedure Debridement -Clinical Debridement Subcutaneous -Tissue Removed Subcutaneous -Post Debridement (cm) - Length 1.8 -Post Debridement (cm) - Width 0.5 -Post Debridement (cm) - Depth 0.1 -Total Square (Post) (cm) 0.90 -Area of Debridement (cm) - Length 1.8 -Area of Debridement (cm) - Width 0.5 -Total Square (Area) (cm) 0.90 -Tunneling No -Undermining/Tunneling No -Circular Undermining No -Wound/Ulcer Outcome Not Healed -Ulcer Cleansing Rinsed/ Irrigated with Saline -Foul Odor after Cleansing No -Bioengineered Tissue No -Bleeding Controlled with Pressure -Offloading Yes -Type of Offloading Surgical Shoe -Treatment Response Procedure Tolerated Well -Debridement - Subq, 1st 20sq cm No #37-right 2nd toe -Time 11:48 -Correct Patient Yes -Correct Side, Site, Position Yes -Correct Procedure Yes -Procedure Performed Yes -Type of Procedure Debridement -Clinical Debridement Subcutaneous -Tissue Removed Subcutaneous -Post Debridement (cm) - Length 2.8 -Post Debridement (cm) - Width 1.6 -Post Debridement (cm) - Depth 0.3 -Total Square (Post) (cm) 4.48 -Area of Debridement (cm) - Length 2.8 -Area of Debridement (cm) - Width 1.6 -Total Square (Area) (cm) 4.48 -Tunneling No -Undermining/Tunneling No -Circular Undermining No -Wound/Ulcer Outcome Not Healed -Ulcer Cleansing Rinsed/ Irrigated with Saline -Foul Odor after Cleansing No -Bioengineered Tissue No -Bleeding Controlled with Pressure -Offloading Yes -Type of Offloading Surgical Shoe -Treatment Response Procedure Tolerated Well -Debridement - Subq, 1st 20sq cm No [See Physician Procedure note for Specifics] Pain Scale: 0-10 Numeric [Pain] -Is Patient Pain Free? Yes Musculoskeletal: No Tenderness to Palpation of Joints or Extremities, Muscle Wasting, - - Compartments soft Neurological: - - Lack of epicritic sensation light touch is consistent with neuropathy status Psych/Mental Status: Normal Affect, Appropriate Debridement Note Post-Debridement Measurements/Treatment WC - Nurse 2 - General Ulcer CM Notes Start: 03/21/20 10:45 Freq: Status: Active Protocol: Activity Type Activity Date Activity User E-Sign Co-Sign Detail Recorded Client Recorded Date Recorded By Document 03/21/20 12:48 MARCOS [id number] 03/21/20 12:51 PL Document 03/28/20 11:42 [id number] 03/28/20 11:52 03/21/20 03/28/20 12:48 11:42 Wound Center Nurse 2 43-RIGHT POSTERIOR UPPER LEG -Time 11:51 -Correct Patient No -Correct Side, Site, Position No -Correct Procedure No -Procedure Performed No -Post Debridement (cm) - Length 2.6 -Post Debridement (cm) - Width 2.4 -Post Debridement (cm) - Depth 0.1 -Total Square (Post) (cm) 6.24 -Area of Debridement (cm) - Length 2.6 -Area of Debridement (cm) - Width 2.4 -Total Square (Area) (cm) 6.24 -Tunneling No -Undermining/Tunneling No -Circular Undermining No -Wound/Ulcer Outcome Not Healed -Ulcer Cleansing Rinsed/ Irrigated with Saline -Foul Odor after Cleansing No -Bioengineered Tissue No -Bleeding Controlled with Pressure -Offloading No -Treatment Response Procedure Tolerated Well -Debridement - Subq, 1st 20sq cm No 39-right lateral foot -Time 11: 11:44 -Correct Patient Yes Yes -Correct Side, Site, Position Yes Yes -Correct Procedure Yes Yes -Procedure Performed Yes Yes -Type of Procedure Debridement Debridement -Clinical Debridement Subcutaneous Subcutaneous -Tissue Removed Subcutaneous Subcutaneous -Post Debridement (cm) - Length 2 1 -Post Debridement (cm) - Width 2.1 0.5 -Post Debridement (cm) - Depth 0.2 0.2 -Total Square (Post) (cm) 4.2 0.5 -Area of Debridement (cm) - Length 2 1 -Area of Debridement (cm) - Width 2.1 0.5 -Total Square (Area) (cm) 4.2 0.5 -Tunneling No No -Undermining/Tunneling No No -Circular Undermining No No -Wound/Ulcer Outcome Not Healed Not Healed -Ulcer Cleansing Rinsed/ Rinsed/ Irrigated with Irrigated with Saline Saline -Foul Odor after Cleansing No No -Bioengineered Tissue No No -Bleeding Controlled with Pressure Pressure -Offloading No -Treatment Response Procedure Procedure Tolerated Well Tolerated Well -Debridement - Subq, 1st 20sq cm No Yes #35 L Stump -Time 11: 11:46 -Correct Patient Yes Yes -Correct Side, Site, Position Yes Yes -Correct Procedure Yes Yes -Procedure Performed Yes Yes -Type of Procedure Debridement Debridement -Clinical Debridement Epidermis / Epidermis / Dermis Dermis -Tissue Removed Subcutaneous Epidermis, Dermis -Post Debridement (cm) - Length 1 1 -Post Debridement (cm) - Width 2 3.5 -Post Debridement (cm) - Depth 0.2 0.2 -Total Square (Post) (cm) 2 3.5 -Area of Debridement (cm) - Length 1 1 -Area of Debridement (cm) - Width 2 3.5 -Total Square (Area) (cm) 2 3.5 -Tunneling No No -Undermining/Tunneling No No -Circular Undermining No No -Wound/Ulcer Outcome Not Healed Not Healed -Ulcer Cleansing Rinsed/ Rinsed/ Irrigated with Irrigated with Saline Saline -Foul Odor after Cleansing No No -Bioengineered Tissue No No -Bleeding Controlled with Pressure -Offloading Yes -Type of Offloading Surgical Shoe -Treatment Response Procedure Tolerated Well -Debridement - Open, 1st 20sq cm No Yes #42- R MEDIAL FOOT -Time 11: 11:46 -Correct Patient Yes Yes -Correct Side, Site, Position Yes Yes -Correct Procedure Yes Yes -Procedure Performed Yes Yes -Type of Procedure Debridement Debridement -Clinical Debridement Subcutaneous Subcutaneous -Tissue Removed Subcutaneous Subcutaneous -Post Debridement (cm) - Length 0.7 1.8 -Post Debridement (cm) - Width 1.7 0.5 -Post Debridement (cm) - Depth 0.2 0.1 -Total Square (Post) (cm) 1.19 0.90 -Area of Debridement (cm) - Length 0.7 1.8 -Area of Debridement (cm) - Width 1.7 0.5 -Total Square (Area) (cm) 1.19 0.90 -Tunneling No No -Undermining/Tunneling No No -Circular Undermining No No -Wound/Ulcer Outcome Not Healed Not Healed -Ulcer Cleansing Rinsed/ Rinsed/ Irrigated with Irrigated with Saline Saline -Foul Odor after Cleansing No No -Bioengineered Tissue No No -Bleeding Controlled with Pressure Pressure -Offloading Yes -Type of Offloading Surgical Shoe -Treatment Response Procedure Procedure Tolerated Well Tolerated Well -Debridement - Subq, 1st 20sq cm No No #37-right 2nd toe -Time 11:02 11:48 -Correct Patient Yes Yes -Correct Side, Site, Position Yes Yes -Correct Procedure Yes Yes -Procedure Performed Yes Yes -Type of Procedure Debridement Debridement -Clinical Debridement Subcutaneous Subcutaneous -Tissue Removed Subcutaneous Subcutaneous -Post Debridement (cm) - Length 3 2.8 -Post Debridement (cm) - Width 1.2 1.6 -Post Debridement (cm) - Depth 0.2 0.3 -Total Square (Post) (cm) 3.6 4.48 -Area of Debridement (cm) - Length 3 2.8 -Area of Debridement (cm) - Width 1.2 1.6 -Total Square (Area) (cm) 3.6 4.48 -Tunneling No No -Undermining/Tunneling No No -Circular Undermining No No -Wound/Ulcer Outcome Not Healed Not Healed -Ulcer Cleansing Rinsed/ Rinsed/ Irrigated with Irrigated with Saline Saline -Foul Odor after Cleansing No No -Bioengineered Tissue No No -Bleeding Controlled with Pressure Pressure -Offloading Yes -Type of Offloading Surgical Shoe -Treatment Response Procedure Procedure Tolerated Well Tolerated Well -Debridement - Subq, 1st 20sq cm Yes No Pain Scale: 0-10 Numeric Is Patient Pain Free? Yes Yes WC - Nurse 3 - General Ulcer D/C NN Start: 03/21/20 10:45 Freq: Status: Active Protocol: Activity Type Activity Date Activity User E-Sign Co-Sign Detail Recorded Client Recorded Date Recorded By Document 03/21/20 11:12 JEROD [id number] 03/21/20 11:13 JEROD 03/21/20 11:12 Wound Care Nurse 3 39-right lateral foot -Ulcer Cleansing Rinsed/ Irrigated with Saline -Foul Odor after Cleansing No -Primary Dressing Covered/Secured with Dry Gauze & Roll Gauze, Secured with Tape #35 L Stump -Ulcer Cleansing Rinsed/ Irrigated with Saline -Primary Dressing Covered/Secured with Dry Gauze & Roll Gauze, Secured with Tape #42- R MEDIAL FOOT -Ulcer Cleansing Rinsed/ Irrigated with Saline -Foul Odor after Cleansing No -Primary Dressing Covered/Secured with Dry Gauze & Roll Gauze, Secured with Tape #37-right 2nd toe -Ulcer Cleansing Rinsed/ Irrigated with Saline -Foul Odor after Cleansing No -Primary Dressing Covered/Secured with Dry Gauze & Roll Gauze, Secured with Tape Pain Scale: 0-10 Numeric Is Patient Pain Free? Yes WC - Visit Discharge Discharge Condition Stable Ambulatory Status Wheelchair Transportation Ambulance Wound debrided: medial forefoot, lateral forefoot, dorsal 2 toe Laterality: Right Wound Grade/Stage: grade 1 Type of Debridement: Excisional debridement Anesthesia Used: 5% Lidocaine Gel Depth: in the subcutaneous layer Percentage of wound debrided: 100 Instrument Used: #15 blade Tissue Removed: fibrous, devitalized subcutaneous, biofilm, slough Severity: Fat Layer Exposed Amount of bleeding with debridement: Mild Bleeding Controlled with: Pressure Patient tolerated procedure well - Additional Wound Wound debrided: anterior leg (stump) Laterality: Right Wound Grade/Stage: grade 1 Type of Debridement: Excisional debridement Anesthesia Used: 5% Lidocaine Gel Depth: in the subcutaneous layer Percentage of wound debrided: 100 Instrument Used: #15 blade Tissue Removed: fibrous, devitalized subcutaneous, biofilm, slough Severity: Fat Layer Exposed Amount of bleeding with debridement: Mild Bleeding Controlled with: Pressure Patient tolerated procedure: Patient tolerated procedure well Assessment/Plan Active Problems Injury of right foot including toes (Acute) Ulcer of right lower extremity with fat layer exposed (Acute) Nonhealing amputation stump (Chronic) Type 2 diabetes mellitus with diabetic polyneuropathy (Chronic) Ulcer of left lower extremity with fat layer exposed (Chronic) Ulcer of right foot with fat layer exposed (Chronic) Type 2 diabetes mellitus with diabetic polyneuropathy (Chronic) Assessment: Open surgical wound anterior aspect left BKA stump. New posterior right leg ulcer. Injury right second toe, traumatic; work-up in process. Peripheral vascular disease. Diabetes with neuropathy. Right second toe ulcer, jerez grade 1, no infection. Right plantar lateral forefoot ulcer, jerez grade 1, no infection. Right plantar medial forefoot ulcer, jerez grade 1, no infection Plan: I reviewed and discussed his case. He was reassured no signs of infection are noted today. For the anterior aspect left BKA stump, will continue Fibracol dressing changes daily. His ulcers to his right foot are noted. All bilateral lower extremity ulcer sites were debrided as noted in the clinical panel. To wash daily with soap and water. To change dressing with fibracol on the right foot also and also the right new leg ulcer. To keep pressure off of the ulcer sites and a surgical shoe with heel weightbearing. To ambulate with his potential surgical shoe in place if able to as he presents today in automated wheelchair. His right foot surgical shoe was adjusted to more proximal position to ensure mechanical pressure is not applied to the second toe previously. His recent injury is noted and I recommend an x-ray to look for any dislocations or fractures. An order was provided. He was advised to get this is upcoming week. It is noted he did not obtain it yet. To continue to work with home physical therapy to prevent deconditioning and to promote safe ambulation, and for wound care. To continue to optimize healing with improved glycemic index, continued weight reduction, and well-balanced [employer] nutrients. He was reassured no local signs of infection are noted today. Nutritional referrals were previously recommended. His significant weight loss is noted which may be a result of his significant dietary changes versus some other autoimmune or immunocompromise status given his oral lesion developments and ongoing delays in healing. His hemoglobin A1c is significantly improved to 6.9%. His white blood cell count was 7.62 during his recent hospital admission before discharge. To continue with edema management including his compression wraps and also lymphedema pumps. To return to clinic in 1 week or to call sooner if you have any questions or concerns. 20 minutes was spent on this encounter. This included face to face and non face to face care including preparing for the visit, reviewing the history, performing the exam, counseling and providing education to the patient, family, or caregiver, ordering medications/test/ procedures if indicated as documented, communicating with other healthcare providers, documenting information in the medical record, interpreting / sharing this information when indicated as documented, and care coordination.
[2020-04-04 11:20] VITALS: BP 138/62; PULSE 53; RESP 18; TEMP 36.1; BMI 47.9
--- NOTE | 2020-04-04 12:15 | PCM.WC.PN ---
(1) Ulcer of right lower extremity with fat layer exposed Status: Acute Code(s): L97.912 - Non-pressure chronic ulcer of unspecified part of right lower leg with fat layer exposed (2) Injury of right foot including toes Status: Acute Qualifiers: Encounter type: subsequent encounter Qualified Code(s): S99.921D - Unspecified injury of right foot, subsequent encounter Code(s): S99.921A - Unspecified injury of right foot, initial encounter (3) Ulcer of right foot with fat layer exposed Status: Chronic Code(s): L97.512 - Non-pressure chronic ulcer of other part of right foot with fat layer exposed (4) Ulcer of left lower extremity with fat layer exposed Status: Chronic Code(s): L97.922 - Non-pressure chronic ulcer of unspecified part of left lower leg with fat layer exposed (5) Nonhealing amputation stump Status: Chronic Code(s): T87.89 - Other complications of amputation stump (6) Type 2 diabetes mellitus with diabetic polyneuropathy Status: Chronic Qualifiers: Code(s): E11.42 - Type 2 diabetes mellitus with diabetic polyneuropathy Type of Wound Date of Service: 04/04/20 Chief Complaint: Open surgical wound anterior aspect left BKA stump. Right second toe ulcer. Right plantar lateral foot ulcer. Right plantar medial foot ulcer. 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 He also has multiple right foot ulcers and a right leg ulcer, and has been performing dressing changes as advised. He denies fever, chills, nausea, vomiting. He denies redness or odor. He has been trying to offload and keep his swelling reduced by wearing Tubigrip compression dressings. He denies redness or odor. He is ambulating in a motorized scooter. He relates his nephew ran over his toe with a toy scooter and this caused more bleeding and swelling. He was advised to get a foot x-ray and he did not do this yet. His toe is discolored. He was recently seen by ear nose and throat physician and was diagnosed with acid reflux. He was started on treatment plan and relates he is able to eat much better now his mouth is starting to feel better. He denies pain, redness or odor. He continues to elevate his limbs, wear compression garments, and he also uses his lymphedema pumps once a day. He is in a motorized scooter. Progress of Wound: Left below-knee amputation with ulcer stable. Stable right foot ulcers. stable right leg ulcer - Physical Exam Vital Signs Temp Pulse Resp BP 97 F L 53 L 18 138/62 H 04/04/20 11:20 04/04/20 11:20 04/04/20 11:20 04/04/20 11:20 General: Alert, Oriented x3, Cooperative, No apparent distress HEENT: Atraumatic Extremities: No cyanosis, Capillary Refill Less than 3 Seconds, No Calf Tenderness, Diminished Peripheral Pulses, Edema - Controlled bilateral, - - Left below-knee amputation. Right hallux amputation. Dorsal contracture of lesser toes right foot Skin: Ulcer/ Wound - No purulence, erythema, odor, streaking or acute signs of infection. Left and right leg ulcers has granular base remained stable. Reduced size of lateral right foot ulcer. There is continued discoloration and devitalization and eschar formation to the distal dorsal tip of the second toe, - - Upon debridement, there is exposed bone to the second toe and this remains firm without discoloration. There is no adjacent bogginess or fluctuance Wound Measurements and Assessment WC - Nurse 1 - General Ulcer Measurement Start: 03/21/20 10:45 Freq: Status: Active Protocol: Activity Type Activity Date Activity User E-Sign Co-Sign Detail Recorded Client Recorded Date Recorded By Document 04/04/20 11:20 RB [id number] 04/04/20 11:32 RB 04/04/20 11:20 Wound Center Nurse 1 [Ulcer Assessment] 43-RIGHT POSTERIOR UPPER LEG -Combined with other wound No -Current Size (cm) - Length 1 -Current Size (cm) - Width 0.7 -Current Size (cm) - Depth 0.1 -Total Square Cm 0.7 -Tunneling No -Undermining/Tunneling No -Circular Undermining No -Exudate Amt Small -Exudate Type Serosanguineous -Wound Margin Flat & Intact -Granulation Amt Medium (34-66%) -Granulation Quality [place] -Slough/Fibrin Yes -Necrosis Amt Small (1-33%) -Necrotic Tissue Type Adherent Slough -Structure Exposed N/A -Texture (Susy-wound Skin Appearance) Assessed -Moisture (Susy-wound Skin Appearance Assessed ) -Color (Susy-wound Skin Appearance) Assessed -Temperature (Susy-wound Skin No Abnormality Appearance) (Pt Warm) -Tenderness on Palpation (Susy-wound No Skin Appearance) -Ulcer Cleansing Wound Cleanser -Foul Odor after Cleansing No -Anesthetic Used 4% Lidocaine Solution 39-right lateral foot -Combined with other wound No -Current Size (cm) - Length 0.5 -Current Size (cm) - Width 1 -Current Size (cm) - Depth 0.2 -Total Square Cm 0.5 -Tunneling No -Undermining/Tunneling No -Circular Undermining No -Exudate Amt Medium -Exudate Type Serosanguineous -Wound Margin Flat & Intact -Granulation Amt Medium (34-66%) -Granulation Quality [place],Red -Slough/Fibrin Yes -Necrosis Amt Medium (34-66%) -Necrotic Tissue Type Adherent Slough -Structure Exposed N/A -Texture (Susy-wound Skin Appearance) Assessed -Moisture (Susy-wound Skin Appearance Assessed ) -Color (Susy-wound Skin Appearance) Assessed -Temperature (Susy-wound Skin No Abnormality Appearance) (Pt Warm) -Tenderness on Palpation (Susy-wound No Skin Appearance) -Ulcer Cleansing Wound Cleanser -Foul Odor after Cleansing No -Anesthetic Used 4% Lidocaine Solution #35 L Stump -Combined with other wound No -Current Size (cm) - Length 0.9 -Current Size (cm) - Width 1.6 -Current Size (cm) - Depth 0.4 -Total Square Cm 1.44 -Tunneling No -Undermining/Tunneling No -Circular Undermining No -Exudate Amt Medium -Exudate Type Serosanguineous -Wound Margin Flat & Intact -Granulation Amt Medium (34-66%) -Granulation Quality [place] -Slough/Fibrin Yes -Necrosis Amt Large (67-100%) -Necrotic Tissue Type Adherent Slough -Structure Exposed N/A -Texture (Susy-wound Skin Appearance) Assessed -Moisture (Susy-wound Skin Appearance Assessed ) -Color (Susy-wound Skin Appearance) Assessed -Temperature (Susy-wound Skin No Abnormality Appearance) (Pt Warm) -Tenderness on Palpation (Susy-wound No Skin Appearance) -Ulcer Cleansing Wound Cleanser -Foul Odor after Cleansing No -Anesthetic Used 4% Lidocaine Solution #42- R MEDIAL FOOT -Combined with other wound No -Current Size (cm) - Length 1.4 -Current Size (cm) - Width 2.8 -Current Size (cm) - Depth 0.2 -Total Square Cm 3.92 -Tunneling No -Undermining/Tunneling No -Circular Undermining No -Exudate Amt Medium -Exudate Type Serosanguineous -Wound Margin Flat & Intact -Granulation Amt Medium (34-66%) -Granulation Quality [place] -Slough/Fibrin Yes -Necrosis Amt Medium (34-66%) -Necrotic Tissue Type Adherent Slough -Structure Exposed N/A -Texture (Susy-wound Skin Appearance) Assessed -Moisture (Susy-wound Skin Appearance Assessed ) -Color (Susy-wound Skin Appearance) Assessed -Temperature (Susy-wound Skin No Abnormality Appearance) (Pt Warm) -Tenderness on Palpation (Susy-wound No Skin Appearance) -Ulcer Cleansing Wound Cleanser -Foul Odor after Cleansing No -Anesthetic Used 4% Lidocaine Solution #37-right 2nd toe -Combined with other wound No -Current Size (cm) - Length 1.5 -Current Size (cm) - Width 1.5 -Current Size (cm) - Depth 0.4 -Total Square Cm 2.25 -Tunneling No -Undermining/Tunneling No -Circular Undermining No -Exudate Amt Medium -Exudate Type Serosanguineous -Wound Margin Thickened -Granulation Amt Small (1-33%) -Granulation Quality [place] -Slough/Fibrin Yes -Necrosis Amt Large (67-100%) -Necrotic Tissue Type Adherent Slough -Structure Exposed N/A -Texture (Susy-wound Skin Appearance) Localized Edema -Moisture (Susy-wound Skin Appearance Assessed, ) Maceration -Color (Susy-wound Skin Appearance) Assessed -Temperature (Susy-wound Skin No Abnormality Appearance) (Pt Warm) -Tenderness on Palpation (Susy-wound No Skin Appearance) -Ulcer Cleansing Wound Cleanser -Foul Odor after Cleansing No -Anesthetic Used 4% Lidocaine Solution [Edema Assessment] -Right Calf (cm) 43 -Right Ankle (cm) 27.8 WC - Nurse 2 - General Ulcer CM Notes Start: 03/21/20 10:45 Freq: Status: Active Protocol: Activity Type Activity Date Activity User E-Sign Co-Sign Detail Recorded Client Recorded Date Recorded By Document 04/04/20 11:44 JF [id number] 04/04/20 11:56 JF 04/04/20 11:44 Wound Center Nurse 2 [Procedure/Treatment] 43-RIGHT POSTERIOR UPPER LEG -Time 11:53 -Correct Patient Yes -Correct Side, Site, Position Yes -Correct Procedure Yes -Procedure Performed Yes -Type of Procedure Debridement -Clinical Debridement Subcutaneous -Tissue Removed Subcutaneous -Post Debridement (cm) - Length 1 -Post Debridement (cm) - Width 0.8 -Post Debridement (cm) - Depth 0.1 -Total Square (Post) (cm) 0.8 -Area of Debridement (cm) - Length 1 -Area of Debridement (cm) - Width 0.8 -Total Square (Area) (cm) 0.8 -Tunneling No -Undermining/Tunneling No -Circular Undermining No -Wound/Ulcer Outcome Not Healed -Ulcer Cleansing Rinsed/ Irrigated with Saline -Foul Odor after Cleansing No -Bioengineered Tissue No -Bleeding Controlled with Pressure -Offloading Yes -Type of Offloading Surgical Shoe -Treatment Response Procedure Tolerated Well -Debridement - Subq, 1st 20sq cm No 39-right lateral foot -Time 11:45 -Correct Patient Yes -Correct Side, Site, Position Yes -Correct Procedure Yes -Procedure Performed Yes -Type of Procedure Debridement -Clinical Debridement Subcutaneous -Tissue Removed Subcutaneous -Post Debridement (cm) - Length 0.5 -Post Debridement (cm) - Width 1.1 -Post Debridement (cm) - Depth 0.2 -Total Square (Post) (cm) 0.55 -Area of Debridement (cm) - Length 0.5 -Area of Debridement (cm) - Width 1.1 -Total Square (Area) (cm) 0.55 -Tunneling No -Undermining/Tunneling No -Circular Undermining No -Wound/Ulcer Outcome Not Healed -Ulcer Cleansing Rinsed/ Irrigated with Saline -Foul Odor after Cleansing No -Bioengineered Tissue No -Bleeding Controlled with Pressure -Offloading Yes -Type of Offloading Surgical Shoe -Treatment Response Procedure Tolerated Well -Debridement - Subq, 1st 20sq cm Yes #35 L Stump -Correct Patient No -Correct Side, Site, Position No -Correct Procedure No -Procedure Performed No -Circular Undermining No -Wound/Ulcer Outcome Not Healed #42- R MEDIAL FOOT -Time 11:45 -Correct Patient Yes -Correct Side, Site, Position Yes -Correct Procedure Yes -Procedure Performed Yes -Type of Procedure Debridement -Clinical Debridement Subcutaneous -Tissue Removed Subcutaneous -Post Debridement (cm) - Length 1.7 -Post Debridement (cm) - Width 2.5 -Post Debridement (cm) - Depth 0.2 -Total Square (Post) (cm) 4.25 -Area of Debridement (cm) - Length 1.7 -Area of Debridement (cm) - Width 2.5 -Total Square (Area) (cm) 4.25 -Tunneling No -Undermining/Tunneling No -Circular Undermining No -Wound/Ulcer Outcome Not Healed -Ulcer Cleansing Rinsed/ Irrigated with Saline -Foul Odor after Cleansing No -Bioengineered Tissue No -Bleeding Controlled with Pressure -Offloading Yes -Type of Offloading Surgical Shoe -Treatment Response Procedure Tolerated Well -Debridement - Subq, 1st 20sq cm No #37-right 2nd toe -Time 11:46 -Correct Patient Yes -Correct Side, Site, Position Yes -Correct Procedure Yes -Procedure Performed Yes -Type of Procedure Debridement -Clinical Debridement Subcutaneous -Tissue Removed Subcutaneous -Post Debridement (cm) - Length 3.5 -Post Debridement (cm) - Width 2.2 -Post Debridement (cm) - Depth 0.4 -Total Square (Post) (cm) 7.70 -Area of Debridement (cm) - Length 3.5 -Area of Debridement (cm) - Width 2.2 -Total Square (Area) (cm) 7.70 -Tunneling No -Undermining/Tunneling No -Circular Undermining No -Wound/Ulcer Outcome Not Healed -Ulcer Cleansing Rinsed/ Irrigated with Saline -Foul Odor after Cleansing No -Bioengineered Tissue No -Bleeding Controlled with Pressure -Offloading Yes -Type of Offloading Surgical Shoe -Treatment Response Procedure Tolerated Well -Debridement - Subq, 1st 20sq cm No [See Physician Procedure note for Specifics] Pain Scale: 0-10 Numeric [Pain] -Is Patient Pain Free? Yes WC - Nurse 3 - General Ulcer D/C NN Start: 03/21/20 10:45 Freq: Status: Active Protocol: Activity Type Activity Date Activity User E-Sign Co-Sign Detail Recorded Client Recorded Date Recorded By Document 04/04/20 11:57 NORRIS [id number] 04/04/20 11:59 04/04/20 11:57 Wound Care Nurse 3 [Wound Dressing] 43-RIGHT POSTERIOR UPPER LEG -Ulcer Cleansing Rinsed/ Irrigated with Saline -Foul Odor after Cleansing No -Other Dressing DAKINS -Primary Dressing Covered/Secured Dry Gauze & with Roll Gauze, Secured with Tape 39-right lateral foot -Ulcer Cleansing Rinsed/ Irrigated with Saline -Foul Odor after Cleansing No -Other Dressing DAKINS -Primary Dressing Covered/Secured Dry Gauze & with Roll Gauze, Secured with Tape #35 L Stump -Ulcer Cleansing Rinsed/ Irrigated with Saline -Foul Odor after Cleansing No -Other Dressing DAKINS -Primary Dressing Covered/Secured Dry Gauze & with Roll Gauze, Secured with Tape #42- R MEDIAL FOOT -Ulcer Cleansing Rinsed/ Irrigated with Saline -Foul Odor after Cleansing No -Other Dressing DAKINS -Primary Dressing Covered/Secured Dry Gauze & with Roll Gauze, Secured with Tape #37-right 2nd toe -Ulcer Cleansing Rinsed/ Irrigated with Saline -Foul Odor after Cleansing No -Other Dressing DAKINS -Primary Dressing Covered/Secured Dry Gauze & with Roll Gauze, Secured with Tape [Compression Applied] Right -Compression Wrap [place] Wrap Left -Compression Wrap [place] Wrap Pain Scale: 0-10 Numeric [Pain] -Is Patient Pain Free? Yes - Visit Discharge [Visit Discharge Information] -Discharge Condition Stable -Ambulatory Status Wheelchair -Transportation PERSONAL TRANSPORT -Medication Reconcilliation completed Yes & provided to patient/care provider -Clinical Summary of Care Provided Yes Musculoskeletal: No Tenderness to Palpation of Joints or Extremities, Muscle Wasting, - - Compartment soft to palpate bilateral lower extremities Neurological: - - Lack of normal epicritic sensation light touch is consistent with neuropathy status Psych/Mental Status: Normal Affect, Appropriate Debridement Note Post-Debridement Measurements/Treatment WC - Nurse 2 - General Ulcer CM Notes Start: 03/21/20 10:45 Freq: Status: Active Protocol: Activity Type Activity Date Activity User E-Sign Co-Sign Detail Recorded Client Recorded Date Recorded By Document 03/21/20 12:48 PL [id number] 03/21/20 12:51 PL Document 03/28/20 11:42 JF [id number] 03/28/20 11:52 Document 04/04/20 11:44 [id number] 04/04/20 11:56 03/21/20 03/28/20 04/04/20 12:48 11:42 11:44 Wound Center Nurse 2 43-RIGHT POSTERIOR UPPER LEG -Time 11:51 11:53 -Correct Patient No Yes -Correct Side, Site, Position No Yes -Correct Procedure No Yes -Procedure Performed No Yes -Type of Procedure Debridement -Clinical Debridement Subcutaneous -Tissue Removed Subcutaneous -Post Debridement (cm) - Length 2.6 1 -Post Debridement (cm) - Width 2.4 0.8 -Post Debridement (cm) - Depth 0.1 0.1 -Total Square (Post) (cm) 6.24 0.8 -Area of Debridement (cm) - Length 2.6 1 -Area of Debridement (cm) - Width 2.4 0.8 -Total Square (Area) (cm) 6.24 0.8 -Tunneling No No -Undermining/Tunneling No No -Circular Undermining No No -Wound/Ulcer Outcome Not Healed Not Healed -Ulcer Cleansing Rinsed/ Rinsed/ Irrigated with Irrigated with Saline Saline -Foul Odor after Cleansing No No -Bioengineered Tissue No No -Bleeding Controlled with Pressure Pressure -Offloading No Yes -Type of Offloading Surgical Shoe -Treatment Response Procedure Procedure Tolerated Well Tolerated Well -Debridement - Subq, 1st 20sq cm No No 39-right lateral foot -Time 11:02 11:44 11:45 -Correct Patient Yes Yes Yes -Correct Side, Site, Position Yes Yes Yes -Correct Procedure Yes Yes Yes -Procedure Performed Yes Yes Yes -Type of Procedure Debridement Debridement Debridement -Clinical Debridement Subcutaneous Subcutaneous Subcutaneous -Tissue Removed Subcutaneous Subcutaneous Subcutaneous -Post Debridement (cm) - Length 2 1 0.5 -Post Debridement (cm) - Width 2.1 0.5 1.1 -Post Debridement (cm) - Depth 0.2 0.2 0.2 -Total Square (Post) (cm) 4.2 0.5 0.55 -Area of Debridement (cm) - Length 2 1 0.5 -Area of Debridement (cm) - Width 2.1 0.5 1.1 -Total Square (Area) (cm) 4.2 0.5 0.55 -Tunneling No No No -Undermining/Tunneling No No No -Circular Undermining No No No -Wound/Ulcer Outcome Not Healed Not Healed Not Healed -Ulcer Cleansing Rinsed/ Rinsed/ Rinsed/ Irrigated with Irrigated with Irrigated with Saline Saline Saline -Foul Odor after Cleansing No No No -Bioengineered Tissue No No No -Bleeding Controlled with Pressure Pressure Pressure -Offloading No Yes -Type of Offloading Surgical Shoe -Treatment Response Procedure Procedure Procedure Tolerated Well Tolerated Well Tolerated Well -Debridement - Subq, 1st 20sq cm No Yes Yes #35 L Stump -Time 11: 11:46 -Correct Patient Yes Yes No -Correct Side, Site, Position Yes Yes No -Correct Procedure Yes Yes No -Procedure Performed Yes Yes No -Type of Procedure Debridement Debridement -Clinical Debridement Epidermis / Epidermis / Dermis Dermis -Tissue Removed Subcutaneous Epidermis, Dermis -Post Debridement (cm) - Length 1 1 -Post Debridement (cm) - Width 2 3.5 -Post Debridement (cm) - Depth 0.2 0.2 -Total Square (Post) (cm) 2 3.5 -Area of Debridement (cm) - Length 1 1 -Area of Debridement (cm) - Width 2 3.5 -Total Square (Area) (cm) 2 3.5 -Tunneling No No -Undermining/Tunneling No No -Circular Undermining No No No -Wound/Ulcer Outcome Not Healed Not Healed Not Healed -Ulcer Cleansing Rinsed/ Rinsed/ Irrigated with Irrigated with Saline Saline -Foul Odor after Cleansing No No -Bioengineered Tissue No No -Bleeding Controlled with Pressure -Offloading Yes -Type of Offloading Surgical Shoe -Treatment Response Procedure Tolerated Well -Debridement - Open, 1st 20sq cm No Yes #42- R MEDIAL FOOT -Time 11: 11:46 11:45 -Correct Patient Yes Yes Yes -Correct Side, Site, Position Yes Yes Yes -Correct Procedure Yes Yes Yes -Procedure Performed Yes Yes Yes -Type of Procedure Debridement Debridement Debridement -Clinical Debridement Subcutaneous Subcutaneous Subcutaneous -Tissue Removed Subcutaneous Subcutaneous Subcutaneous -Post Debridement (cm) - Length 0.7 1.8 1.7 -Post Debridement (cm) - Width 1.7 0.5 2.5 -Post Debridement (cm) - Depth 0.2 0.1 0.2 -Total Square (Post) (cm) 1.19 0.90 4.25 -Area of Debridement (cm) - Length 0.7 1.8 1.7 -Area of Debridement (cm) - Width 1.7 0.5 2.5 -Total Square (Area) (cm) 1.19 0.90 4.25 -Tunneling No No No -Undermining/Tunneling No No No -Circular Undermining No No No -Wound/Ulcer Outcome Not Healed Not Healed Not Healed -Ulcer Cleansing Rinsed/ Rinsed/ Rinsed/ Irrigated with Irrigated with Irrigated with Saline Saline Saline -Foul Odor after Cleansing No No No -Bioengineered Tissue No No No -Bleeding Controlled with Pressure Pressure Pressure -Offloading Yes Yes -Type of Offloading Surgical Shoe Surgical Shoe -Treatment Response Procedure Procedure Procedure Tolerated Well Tolerated Well Tolerated Well -Debridement - Subq, 1st 20sq cm No No No #37-right 2nd toe -Time 11:02 11:48 11:46 -Correct Patient Yes Yes Yes -Correct Side, Site, Position Yes Yes Yes -Correct Procedure Yes Yes Yes -Procedure Performed Yes Yes Yes -Type of Procedure Debridement Debridement Debridement -Clinical Debridement Subcutaneous Subcutaneous Subcutaneous -Tissue Removed Subcutaneous Subcutaneous Subcutaneous -Post Debridement (cm) - Length 3 2.8 3.5 -Post Debridement (cm) - Width 1.2 1.6 2.2 -Post Debridement (cm) - Depth 0.2 0.3 0.4 -Total Square (Post) (cm) 3.6 4.48 7.70 -Area of Debridement (cm) - Length 3 2.8 3.5 -Area of Debridement (cm) - Width 1.2 1.6 2.2 -Total Square (Area) (cm) 3.6 4.48 7.70 -Tunneling No No No -Undermining/Tunneling No No No -Circular Undermining No No No -Wound/Ulcer Outcome Not Healed Not Healed Not Healed -Ulcer Cleansing Rinsed/ Rinsed/ Rinsed/ Irrigated with Irrigated with Irrigated with Saline Saline Saline -Foul Odor after Cleansing No No No -Bioengineered Tissue No No No -Bleeding Controlled with Pressure Pressure Pressure -Offloading Yes Yes -Type of Offloading Surgical Shoe Surgical Shoe -Treatment Response Procedure Procedure Procedure Tolerated Well Tolerated Well Tolerated Well -Debridement - Subq, 1st 20sq cm Yes No No Pain Scale: 0-10 Numeric Is Patient Pain Free? Yes Yes Yes - Nurse 3 - General Ulcer D/C NN Start: 03/21/20 10:45 Freq: Status: Active Protocol: Activity Type Activity Date Activity User E-Sign Co-Sign Detail Recorded Client Recorded Date Recorded By Document 03/21/20 11:12 JEROD [id number] 03/21/20 11:13 KR Document 04/04/20 11:57 NORRIS [id number] 04/04/20 11:59 NORRIS 03/21/20 04/04/20 11:12 11:57 Wound Care Nurse 3 43-RIGHT POSTERIOR UPPER LEG -Ulcer Cleansing Rinsed/ Irrigated with Saline -Foul Odor after Cleansing No -Other Dressing DAKINS -Primary Dressing Covered/Secured with Dry Gauze & Roll Gauze, Secured with Tape 39-right lateral foot -Ulcer Cleansing Rinsed/ Rinsed/ Irrigated with Irrigated with Saline Saline -Foul Odor after Cleansing No No -Other Dressing DAKINS -Primary Dressing Covered/Secured with Dry Gauze & Dry Gauze & Roll Gauze, Roll Gauze, Secured with Secured with Tape Tape #35 L Stump -Ulcer Cleansing Rinsed/ Rinsed/ Irrigated with Irrigated with Saline Saline -Foul Odor after Cleansing No -Other Dressing DAKINS -Primary Dressing Covered/Secured with Dry Gauze & Dry Gauze & Roll Gauze, Roll Gauze, Secured with Secured with Tape Tape #42- R MEDIAL FOOT -Ulcer Cleansing Rinsed/ Rinsed/ Irrigated with Irrigated with Saline Saline -Foul Odor after Cleansing No No -Other Dressing DAKINS -Primary Dressing Covered/Secured with Dry Gauze & Dry Gauze & Roll Gauze, Roll Gauze, Secured with Secured with Tape Tape #37-right 2nd toe -Ulcer Cleansing Rinsed/ Rinsed/ Irrigated with Irrigated with Saline Saline -Foul Odor after Cleansing No No -Other Dressing DAKINS -Primary Dressing Covered/Secured with Dry Gauze & Dry Gauze & Roll Gauze, Roll Gauze, Secured with Secured with Tape Tape Right -Compression Wrap [place] Wrap Left -Compression Wrap [place] Wrap Pain Scale: 0-10 Numeric Is Patient Pain Free? Yes Yes WC - Visit Discharge Discharge Condition Stable Stable Ambulatory Status Wheelchair Wheelchair Transportation Ambulance PERSONAL TRANSPORT Medication Reconcilliation completed & Yes provided to patient/care provider Clinical Summary of Care Provided Yes Wound debrided: posterior leg, medial foot, lateral plantar foot Laterality: Right Wound Grade/Stage: grade 1 Type of Debridement: Excisional debridement Anesthesia Used: 5% Lidocaine Gel Depth: in the subcutaneous layer Percentage of wound debrided: 100 Instrument Used: #15 blade Tissue Removed: fibrous, devitalized subcutaneous, biofilm, slough Severity: Fat Layer Exposed Amount of bleeding with debridement: Mild Bleeding Controlled with: Pressure Patient tolerated procedure well - Additional Wound Wound debrided: 2nd toe Laterality: Right Wound Grade/Stage: grade 2 (status change) Type of Debridement: Excisional debridement Anesthesia Used: 5% Lidocaine Gel Depth: in the subcutaneous layer Percentage of wound debrided: 100 Instrument Used: #15 blade Tissue Removed: fibrous, devitalized subcutaneous, biofilm, slough, eschar Severity: Necrosis of Muscle Amount of bleeding with debridement: Mild Bleeding Controlled with: Pressure Patient tolerated procedure: Patient tolerated procedure well Assessment/Plan Active Problems Injury of right foot including toes (Acute) Ulcer of right lower extremity with fat layer exposed (Acute) Nonhealing amputation stump (Chronic) Type 2 diabetes mellitus with diabetic polyneuropathy (Chronic) Ulcer of left lower extremity with fat layer exposed (Chronic) Ulcer of right foot with fat layer exposed (Chronic) Type 2 diabetes mellitus with diabetic polyneuropathy (Chronic) Assessment: Open surgical wound anterior aspect left BKA stump. posterior right leg ulcer, no infection (jerez grade 1). second toe ulcer, status change with exposed deep tissue (jerez 2). Right plantar lateral forefoot ulcer, jerez grade 1, no infection. Right plantar medial forefoot ulcer, jerez grade 1, no infection. Injury right second toe, traumatic; work-up in still in process. Peripheral vascular disease. Diabetes with neuropathy. Plan: I reviewed and discussed his case. He was reassured no signs of infection are noted today to right leg and right foot ulcer sites or left leg. To change all ulcer sites daily with Dakin wet-to-dry dressings. All right lower extremity ulcer sites were debrided as noted in the clinical panel. To wash daily with soap and water. To keep pressure off of the ulcer sites and a surgical shoe with heel weightbearing. To ambulate with his potential surgical shoe in place if able to as he presents today in automated wheelchair. His right foot surgical shoe was adjusted to more proximal position to ensure mechanical pressure is not applied to the second toe previously. His recent injury is noted and I recommend an x-ray to look for any dislocations or fractures. An order was provided. He was advised to get this is upcoming week. It is noted he still did not obtain it yet; he complains of transportation and scheduling issues. I also recommend updated labs including CBC, CMP, ESR, and C-reactive protein due to the status change of his right second toe ulcer site. An order was provided. To continue to working with home physical therapy to prevent deconditioning and to promote safe ambulation, and for wound care. To continue to optimize healing with improved glycemic index, continued weight reduction, and well-balanced [employer] nutrients. He was reassured no local signs of infection are noted today. Nutritional referrals were previously recommended. His significant weight loss is noted which may be a result of his significant dietary changes versus some other autoimmune or immunocompromise status given his oral lesion developments and ongoing delays in healing. He did follow-up with ears nose and throat who diagnosed him with acid reflux. He started a treatment plan and has been able to eat on a more regular and consistent basis which is encouraged to optimize healing. His hemoglobin A1c is significantly improved to 6.9%. His white blood cell count was 7.62 during his recent hospital admission before discharge. To continue with edema management including his compression wraps and also lymphedema pumps. To return to clinic in 1 week or to call sooner if you have any questions or concerns. The problems addressed require a moderate decision making level which includes one or more chronic illnesses (w/ exacerbation, progression, or side effects), two or more stable chronic illnesses, one undiagnosed new problem w/ uncertain prognosis, one acute illness with systemic symptoms. The medical decision making level is moderate. There is noted moderate risk of morbidity after considering this treatment plan and diagnostic data. Considerations were given to prescription management, decisions regarding surgical options, or social determinants of health. Note: [employer] speech recognition mail opener software was used to create portions of this document. Sound-alike and misspelled words, as well as other mail opener errors may be contained in the documentation. . [employer] 2020. Reviewed today: Medication and allergies were reviewed and reconciled. Reviewed 04-04-2020: His blood pressure is elevated over 120/80 and is noted to be at 138/62 today. Follow-up with primary care physician. Diet and activity adjustments were discussed to optimize overall health and to promote better wound healing. It is noted he has not a current tobacco user. He was a former smoker. His CODE STATUS was confirmed as a full code.
--- NOTE | 2020-04-11 | BON_PTH ---
PATIENT: [place] IV[place] LOC: U#:[id number] AGE/SX: 64/M ROOM: RE04/11/[address]: Dr. Tip Pompa MD : 1955 BED: DIS: 04/15/2020 SPEC #: [id number] RECD: 04/11/20 12:42 STATUS: DON REHaley #: [id number] RENUKA: 04/11/20 00:[address]: Tip Pompa DEPT: SURGICAL PATHOLOGY RECD BY: Les Albarran ENTERED: 04/12/20 07:52 SP TYPE: Bone OTHR DR: Dr. Ac Felix MD Tissues: Bone of foot, NOS Procedures: Decalcification bone/plaque Surgery Specimen Level V HEADER OPERATION: Right second toe bone biopsy PRE-OP DIAGNOSIS: Chronic ulcer and recent trauma TISSUE SUBMITTED: Second toe bone right MICROSCOPIC DIAGNOSIS Bone, right second toe, biopsy: Soft tissue with ulceration, acute and chronic inflammation and granulation. Bone with reparative and reactive change. No evidence of acute osteomyelitis. AM:enrique 04/16/2020 MICROSCOPIC DESCRIPTION Slides are reviewed. GROSS DESCRIPTION Received in fixative is one container labeled with the patient's name and designated right foot toe. The specimen consists of an irregular fragment of light alva bone measuring 1 x 0.5 x 0.2 cm. The specimen is totally submitted in one cassette after decalcification. / AM:enrique 04/12/20 TC:2 CPT: 75667, 33405
[2020-04-11 11:49] VITALS: BP 140/57; PULSE 59; RESP 20; TEMP 36.2; BMI 47.9
--- NOTE | 2020-04-11 23:08 | PN.PCM_ITS ---
(1) Osteomyelitis of right foot Status: Suspected Code(s): M86.9 - Osteomyelitis, unspecified (2) Injury of right foot including toes Status: Acute Qualifiers: Encounter type: subsequent encounter Qualified Code(s): S99.921D - Unspecified injury of right foot, subsequent encounter Code(s): S99.921A - Unspecified injury of right foot, initial encounter (3) Ulcer of right foot with fat layer exposed Status: Chronic Code(s): L97.512 - Non-pressure chronic ulcer of other part of right foot with fat layer exposed (4) Ulcer of left lower extremity with fat layer exposed Status: Chronic Code(s): L97.922 - Non-pressure chronic ulcer of unspecified part of left lower leg with fat layer exposed (5) Nonhealing amputation stump Status: Chronic Code(s): T87.89 - Other complications of amputation stump (6) Type 2 diabetes mellitus with diabetic polyneuropathy Status: Chronic Qualifiers: Code(s): E11.42 - Type 2 diabetes mellitus with diabetic polyneuropathy (7) Ulcer of right foot with necrosis of bone Status: Acute Code(s): L97.514 - Non-pressure chronic ulcer of other part of right foot with necrosis of bone Type of Wound Date of Service: 04/11/20 Chief Complaint: Open surgical wound anterior aspect left BKA stump. Right second toe ulcer with recent and recurrent injury. Right plantar lateral foot ulcer. Right plantar medial foot ulcer. 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 He also has multiple right foot ulcers and a right leg ulcer, and has been performing dressing changes as advised. He denies fever, chills, nausea, vomiting. He denies redness or odor. He has been trying to offload and keep his swelling reduced by wearing Tubigrip compression dressings. He denies redness or odor. He is ambulating in a motorized scooter. He relates his nephew ran over his toe with a toy scooter and this caused more bleeding and swelling. He was advised to get a foot x-ray and he was able to do this now several weeks after advised. His toe is no longer discolored but it is chronically swollen. He was recently seen by ear nose and throat physician and was diagnosed with acid reflux. He was started on treatment plan and relates was able to eat much better now his mouth is starting to feel better. However now he complains medication potentially affected his kidneys and he has recently discontinued use. He denies pain, redness or odor. He continues to elevate his limbs, wear compression garments, and he also uses his lymphedema pumps once a day. He has a motorized scooter. Progress of Wound: Left below-knee amputation with ulcer stable. Stable right second toe ulcer now with concern of underlying osteomyelitis and concurrent recent injury. improving right foot ulcers (medial and lateral forefoot). stable right leg ulcer - Physical Exam Vital Signs Temp Pulse Resp BP 97.2 F L 59 L 20 H 140/57 H 04/11/20 11:49 04/11/20 11:49 04/11/20 11:49 04/11/20 11:49 General: Alert, Oriented x3, Cooperative, No apparent distress Extremities: No cyanosis, Capillary Refill Less than 3 Seconds, No Calf Tenderness, Diminished Peripheral Pulses, Edema Skin: Ulcer/ Wound - No purulence, erythema, streaking, odor, necrosis. The ulcers have a pale granular base to the left leg and medial lateral right forefoot. The ulcer to the posterior right leg is healed with full epith elialization. There is exposed visualized firm bone to the distal right second toe ulcer, - - Second toe edema persist with resolution of eschar and devitalized tissue. There is no bogginess or fluctuance on palpation. His adjacent skin is hairless and atrophic. Wound Measurements and Assessment WC - Nurse 1 - General Ulcer Measurement Start: 03/21/20 10:45 Freq: Status: Active Protocol: Activity Type Activity Date Activity User E-Sign Co-Sign Detail Recorded Client Recorded Date Recorded By Document 04/11/20 11:49 DL [id number] 04/11/20 11:53 DL 04/11/20 11:49 Wound Center Nurse 1 [Ulcer Assessment] 43-RIGHT POSTERIOR UPPER LEG -Current Size (cm) - Length 0.1 -Current Size (cm) - Width 0.1 -Current Size (cm) - Depth 0.1 -Total Square Cm 0.01 -Photo Taken No -Exudate Amt None Present -Wound Margin Flat & Intact -Granulation Amt Large (67-100%) -Granulation Quality Erhard -Necrosis Amt None Present (0 %) -Structure Exposed N/A -Texture (Susy-wound Skin Appearance) Scarring -Moisture (Susy-wound Skin Appearance Dry/Scaly ) -Color (Susy-wound Skin Appearance) Hemosiderin Staining -Temperature (Susy-wound Skin No Abnormality Appearance) (Pt Warm) -Tenderness on Palpation (Susy-wound No Skin Appearance) -Ulcer Cleansing Wound Cleanser -Foul Odor after Cleansing No 39-right lateral foot -Current Size (cm) - Length 1.2 -Current Size (cm) - Width 0.6 -Current Size (cm) - Depth 0.2 -Total Square Cm 0.72 -Photo Taken No -Exudate Amt Medium -Exudate Type Serosanguineous -Wound Margin Thickened -Granulation Amt Medium (34-66%) -Granulation Quality Red -Necrosis Amt Medium (34-66%) -Necrotic Tissue Type Adherent Slough -Structure Exposed N/A -Texture (Susy-wound Skin Appearance) Scarring -Moisture (Susy-wound Skin Appearance Dry/Scaly ) -Color (Susy-wound Skin Appearance) Hemosiderin Staining -Temperature (Susy-wound Skin No Abnormality Appearance) (Pt Warm) -Tenderness on Palpation (Susy-wound No Skin Appearance) -Ulcer Cleansing Wound Cleanser -Foul Odor after Cleansing Yes -Anesthetic Used 4% Lidocaine Solution #35 L Stump -Current Size (cm) - Length 1 -Current Size (cm) - Width 2 -Current Size (cm) - Depth 0.2 -Total Square Cm 2 -Photo Taken No -Exudate Amt Small -Exudate Type Serosanguineous -Wound Margin Thickened -Granulation Amt Small (1-33%) -Granulation Quality Erhard -Necrosis Amt Medium (34-66%) -Necrotic Tissue Type Adherent Slough -Structure Exposed N/A -Texture (Susy-wound Skin Appearance) Scarring -Moisture (Susy-wound Skin Appearance Dry/Scaly ) -Color (Susy-wound Skin Appearance) Hemosiderin Staining -Temperature (Susy-wound Skin No Abnormality Appearance) (Pt Warm) -Tenderness on Palpation (Susy-wound No Skin Appearance) -Ulcer Cleansing Wound Cleanser -Foul Odor after Cleansing No -Anesthetic Used 4% Lidocaine Solution #42- R MEDIAL FOOT -Current Size (cm) - Length 1.2 -Current Size (cm) - Width 2 -Current Size (cm) - Depth 0.2 -Total Square Cm 2.4 -Photo Taken No -Exudate Amt Medium -Exudate Type Serosanguineous -Wound Margin Thickened -Granulation Amt Medium (34-66%) -Granulation Quality Pale,Erhard -Necrosis Amt Medium (34-66%) -Necrotic Tissue Type Adherent Slough -Structure Exposed N/A -Texture (Susy-wound Skin Appearance) Scarring -Moisture (Susy-wound Skin Appearance Dry/Scaly ) -Color (Susy-wound Skin Appearance) Hemosiderin Staining -Temperature (Suys-wound Skin No Abnormality Appearance) (Pt Warm) -Tenderness on Palpation (Susy-wound No Skin Appearance) -Ulcer Cleansing Wound Cleanser -Foul Odor after Cleansing No -Anesthetic Used 4% Lidocaine Solution #37-right 2nd toe -Current Size (cm) - Length 1.6 -Current Size (cm) - Width 1.7 -Current Size (cm) - Depth 0.3 -Total Square Cm 2.72 -Photo Taken No -Exudate Amt Medium -Exudate Type Serosanguineous -Wound Margin Thickened -Granulation Amt Small (1-33%) -Granulation Quality Erhard -Necrosis Amt Large (67-100%) -Necrotic Tissue Type Adherent Slough -Structure Exposed N/A -Texture (Susy-wound Skin Appearance) Scarring -Moisture (Susy-wound Skin Appearance Dry/Scaly ) -Color (Susy-wound Skin Appearance) Hemosiderin Staining -Temperature (Susy-wound Skin No Abnormality Appearance) (Pt Warm) -Tenderness on Palpation (Susy-wound No Skin Appearance) -Ulcer Cleansing Wound Cleanser -Foul Odor after Cleansing No -Anesthetic Used 4% Lidocaine Solution WC - Nurse 2 - General Ulcer CM Notes Start: 03/21/20 10:45 Freq: Status: Active Protocol: Activity Type Activity Date Activity User E-Sign Co-Sign Detail Recorded Client Recorded Date Recorded By Document 04/11/20 12:11 NORRIS [id number] 04/11/20 12:27 NORRIS 04/11/20 12:11 Wound Center Nurse 2 [Procedure/Treatment] 43-RIGHT POSTERIOR UPPER LEG -Time 12:11 -Correct Patient No -Correct Side, Site, Position No -Correct Procedure No -Procedure Performed No -Post Debridement (cm) - Length 0 -Post Debridement (cm) - Width 0 -Post Debridement (cm) - Depth 0 -Total Square (Post) (cm) 0 -Area of Debridement (cm) - Length 0 -Area of Debridement (cm) - Width 0 -Total Square (Area) (cm) 0 -Tunneling No -Undermining/Tunneling No -Circular Undermining No -Wound/Ulcer Outcome Healed- Epithelialized -Ulcer Cleansing Rinsed/ Irrigated with Saline -Foul Odor after Cleansing No -Bioengineered Tissue No -Bleeding Controlled with Pressure -Offloading No -Treatment Response Procedure Tolerated Well -Debridement - Subq, 1st 20sq cm Yes 39-right lateral foot -Time 12:11 -Correct Patient Yes -Correct Side, Site, Position Yes -Correct Procedure Yes -Procedure Performed Yes -Type of Procedure Debridement -Clinical Debridement Subcutaneous -Tissue Removed Subcutaneous -Post Debridement (cm) - Length 1.2 -Post Debridement (cm) - Width 0.6 -Post Debridement (cm) - Depth 0.2 -Total Square (Post) (cm) 0.72 -Area of Debridement (cm) - Length 1.2 -Area of Debridement (cm) - Width 0.6 -Total Square (Area) (cm) 0.72 -Tunneling No -Undermining/Tunneling No -Circular Undermining No -Wound/Ulcer Outcome Not Healed -Ulcer Cleansing Rinsed/ Irrigated with Saline -Foul Odor after Cleansing No -Bioengineered Tissue No -Bleeding Controlled with Pressure -Offloading Yes -Type of Offloading Surgical Shoe -Treatment Response Procedure Tolerated Well -Debridement - Subq, 1st 20sq cm Yes #35 L Stump -Time 12:12 -Correct Patient Yes -Correct Side, Site, Position Yes -Correct Procedure Yes -Procedure Performed Yes -Type of Procedure Debridement -Clinical Debridement Subcutaneous -Tissue Removed Subcutaneous -Post Debridement (cm) - Length 1.1 -Post Debridement (cm) - Width 2.1 -Post Debridement (cm) - Depth 0.2 -Total Square (Post) (cm) 2.31 -Area of Debridement (cm) - Length 1.1 -Area of Debridement (cm) - Width 2.1 -Total Square (Area) (cm) 2.31 -Tunneling No -Undermining/Tunneling No -Circular Undermining No -Wound/Ulcer Outcome Not Healed -Ulcer Cleansing Rinsed/ Irrigated with Saline -Foul Odor after Cleansing No -Bioengineered Tissue No -Bleeding Controlled with Pressure -Offloading Yes -Type of Offloading Surgical Shoe -Treatment Response Procedure Tolerated Well -Debridement - Subq, 1st 20sq cm No #42- R MEDIAL FOOT -Time 12:13 -Correct Patient Yes -Correct Side, Site, Position Yes -Correct Procedure Yes -Procedure Performed Yes -Type of Procedure Debridement -Clinical Debridement Subcutaneous -Tissue Removed Subcutaneous -Post Debridement (cm) - Length 1.3 -Post Debridement (cm) - Width 2.1 -Post Debridement (cm) - Depth 0.2 -Total Square (Post) (cm) 2.73 -Area of Debridement (cm) - Length 1.3 -Area of Debridement (cm) - Width 2.1 -Total Square (Area) (cm) 2.73 -Tunneling No -Undermining/Tunneling No -Circular Undermining No -Wound/Ulcer Outcome Not Healed -Ulcer Cleansing Rinsed/ Irrigated with Saline -Foul Odor after Cleansing No -Bioengineered Tissue No -Bleeding Controlled with Pressure -Offloading Yes -Type of Offloading Surgical Shoe -Treatment Response Procedure Tolerated Well -Debridement - Subq, 1st 20sq cm No #37-right 2nd toe -Time 12:14 -Correct Patient Yes -Correct Side, Site, Position Yes -Correct Procedure Yes -Procedure Performed Yes -Type of Procedure Debridement -Clinical Debridement Bone -Tissue Removed Fascia,Tendon -Post Debridement (cm) - Length 1.7 -Post Debridement (cm) - Width 1.7 -Post Debridement (cm) - Depth 0.3 -Total Square (Post) (cm) 2.89 -Area of Debridement (cm) - Length 1.7 -Area of Debridement (cm) - Width 1.7 -Total Square (Area) (cm) 2.89 -Tunneling No -Undermining/Tunneling No -Circular Undermining No -Wound/Ulcer Outcome Not Healed -Ulcer Cleansing Rinsed/ Irrigated with Saline -Foul Odor after Cleansing No -Bioengineered Tissue No -Bleeding Controlled with Pressure -Offloading Yes -Type of Offloading Surgical Shoe -Treatment Response Procedure Tolerated Well -Debridement - Subq, 1st 20sq cm No -Debridement - Bone, 1st 20sq cm Yes [See Physician Procedure note for Specifics] Pain Scale: 0-10 Numeric [Pain] -Is Patient Pain Free? Yes WC - Nurse 3 - General Ulcer D/C NN Start: 03/21/20 10:45 Freq: Status: Active Protocol: Activity Type Activity Date Activity User E-Sign Co-Sign Detail Recorded Client Recorded Date Recorded By Document 04/11/20 12:41 NORRIS [id number] 04/11/20 12:43 JF 04/11/20 12:41 Wound Care Nurse 3 [Wound Dressing] 39-right lateral foot -Ulcer Cleansing Rinsed/ Irrigated with Saline -Foul Odor after Cleansing No -Primary Dressing Covered/Secured Dry Gauze, with Secured with Tape -Other Covering dakins #42- R MEDIAL FOOT -Ulcer Cleansing Rinsed/ Irrigated with Saline -Foul Odor after Cleansing No -Other Dressing dakins -Primary Dressing Covered/Secured Dry Gauze & with Roll Gauze, Secured with Tape #37-right 2nd toe -Ulcer Cleansing Rinsed/ Irrigated with Saline -Foul Odor after Cleansing No -Other Dressing dakins -Primary Dressing Covered/Secured Dry Gauze & with Roll Gauze, Secured with Tape [Compression Applied] Right -Other farrow wrap Left -Other double tubigrip from home Pain Scale: 0-10 Numeric [Pain] -Is Patient Pain Free? Yes WC - Visit Discharge [Visit Discharge Information] -Discharge Condition Stable -Ambulatory Status Wheelchair -Transportation Private Auto -Medication Reconcilliation completed Yes & provided to patient/care provider -Clinical Summary of Care Provided Yes Musculoskeletal: No Tenderness to Palpation of Joints or Extremities, Muscle Wasting, - - Right hallux amputation. Left below-knee amputation. Motorized scooter use noted Neurological: - - Lack of epicritic sensation light touch is consistent with neuropathy status Psych/Mental Status: Normal Affect, Appropriate Debridement Note Post-Debridement Measurements/Treatment - Nurse 2 - General Ulcer CM Notes Start: 03/21/20 10:45 Freq: Status: Active Protocol: Activity Type Activity Date Activity User E-Sign Co-Sign Detail Recorded Client Recorded Date Recorded By Document 03/21/20 12:48 PL [id number] 03/21/20 12:51 PL Document 03/28/20 11:42 JF [id number] 03/28/20 11:52 JF Document 04/04/20 11:44 JF [id number] 04/04/20 11:56 JF Document 04/11/20 12:11 JF [id number] 04/11/20 12:27 JF 03/21/20 03/28/20 04/04/20 12:48 11:42 11:44 Wound Center Nurse 2 43-RIGHT POSTERIOR UPPER LEG -Time 11:51 11:53 -Correct Patient No Yes -Correct Side, Site, Position No Yes -Correct Procedure No Yes -Procedure Performed No Yes -Type of Procedure Debridement -Clinical Debridement Subcutaneous -Tissue Removed Subcutaneous -Post Debridement (cm) - Length 2.6 1 -Post Debridement (cm) - Width 2.4 0.8 -Post Debridement (cm) - Depth 0.1 0.1 -Total Square (Post) (cm) 6.24 0.8 -Area of Debridement (cm) - Length 2.6 1 -Area of Debridement (cm) - Width 2.4 0.8 -Total Square (Area) (cm) 6.24 0.8 -Tunneling No No -Undermining/Tunneling No No -Circular Undermining No No -Wound/Ulcer Outcome Not Healed Not Healed -Ulcer Cleansing Rinsed/ Rinsed/ Irrigated with Irrigated with Saline Saline -Foul Odor after Cleansing No No -Bioengineered Tissue No No -Bleeding Controlled with Pressure Pressure -Offloading No Yes -Type of Offloading Surgical Shoe -Treatment Response Procedure Procedure Tolerated Well Tolerated Well -Debridement - Subq, 1st 20sq cm No No 39-right lateral foot -Time 11:02 11:44 11:45 -Correct Patient Yes Yes Yes -Correct Side, Site, Position Yes Yes Yes -Correct Procedure Yes Yes Yes -Procedure Performed Yes Yes Yes -Type of Procedure Debridement Debridement Debridement -Clinical Debridement Subcutaneous Subcutaneous Subcutaneous -Tissue Removed Subcutaneous Subcutaneous Subcutaneous -Post Debridement (cm) - Length 2 1 0.5 -Post Debridement (cm) - Width 2.1 0.5 1.1 -Post Debridement (cm) - Depth 0.2 0.2 0.2 -Total Square (Post) (cm) 4.2 0.5 0.55 -Area of Debridement (cm) - Length 2 1 0.5 -Area of Debridement (cm) - Width 2.1 0.5 1.1 -Total Square (Area) (cm) 4.2 0.5 0.55 -Tunneling No No No -Undermining/Tunneling No No No -Circular Undermining No No No -Wound/Ulcer Outcome Not Healed Not Healed Not Healed -Ulcer Cleansing Rinsed/ Rinsed/ Rinsed/ Irrigated with Irrigated with Irrigated with Saline Saline Saline -Foul Odor after Cleansing No No No -Bioengineered Tissue No No No -Bleeding Controlled with Pressure Pressure Pressure -Offloading No Yes -Type of Offloading Surgical Shoe -Treatment Response Procedure Procedure Procedure Tolerated Well Tolerated Well Tolerated Well -Debridement - Subq, 1st 20sq cm No Yes Yes #35 L Stump -Time : 11:46 -Correct Patient Yes Yes No -Correct Side, Site, Position Yes Yes No -Correct Procedure Yes Yes No -Procedure Performed Yes Yes No -Type of Procedure Debridement Debridement -Clinical Debridement Epidermis / Epidermis / Dermis Dermis -Tissue Removed Subcutaneous Epidermis, Dermis -Post Debridement (cm) - Length 1 1 -Post Debridement (cm) - Width 2 3.5 -Post Debridement (cm) - Depth 0.2 0.2 -Total Square (Post) (cm) 2 3.5 -Area of Debridement (cm) - Length 1 1 -Area of Debridement (cm) - Width 2 3.5 -Total Square (Area) (cm) 2 3.5 -Tunneling No No -Undermining/Tunneling No No -Circular Undermining No No No -Wound/Ulcer Outcome Not Healed Not Healed Not Healed -Ulcer Cleansing Rinsed/ Rinsed/ Irrigated with Irrigated with Saline Saline -Foul Odor after Cleansing No No -Bioengineered Tissue No No -Bleeding Controlled with Pressure -Offloading Yes -Type of Offloading Surgical Shoe -Treatment Response Procedure Tolerated Well -Debridement - Open, 1st 20sq cm No Yes -Debridement - Subq, 1st 20sq cm #42- R MEDIAL FOOT -Time : 11:46 11:45 -Correct Patient Yes Yes Yes -Correct Side, Site, Position Yes Yes Yes -Correct Procedure Yes Yes Yes -Procedure Performed Yes Yes Yes -Type of Procedure Debridement Debridement Debridement -Clinical Debridement Subcutaneous Subcutaneous Subcutaneous -Tissue Removed Subcutaneous Subcutaneous Subcutaneous -Post Debridement (cm) - Length 0.7 1.8 1.7 -Post Debridement (cm) - Width 1.7 0.5 2.5 -Post Debridement (cm) - Depth 0.2 0.1 0.2 -Total Square (Post) (cm) 1.19 0.90 4.25 -Area of Debridement (cm) - Length 0.7 1.8 1.7 -Area of Debridement (cm) - Width 1.7 0.5 2.5 -Total Square (Area) (cm) 1.19 0.90 4.25 -Tunneling No No No -Undermining/Tunneling No No No -Circular Undermining No No No -Wound/Ulcer Outcome Not Healed Not Healed Not Healed -Ulcer Cleansing Rinsed/ Rinsed/ Rinsed/ Irrigated with Irrigated with Irrigated with Saline Saline Saline -Foul Odor after Cleansing No No No -Bioengineered Tissue No No No -Bleeding Controlled with Pressure Pressure Pressure -Offloading Yes Yes -Type of Offloading Surgical Shoe Surgical Shoe -Treatment Response Procedure Procedure Procedure Tolerated Well Tolerated Well Tolerated Well -Debridement - Subq, 1st 20sq cm No No No #37-right 2nd toe -Time 11:02 11:48 11:46 -Correct Patient Yes Yes Yes -Correct Side, Site, Position Yes Yes Yes -Correct Procedure Yes Yes Yes -Procedure Performed Yes Yes Yes -Type of Procedure Debridement Debridement Debridement -Clinical Debridement Subcutaneous Subcutaneous Subcutaneous -Tissue Removed Subcutaneous Subcutaneous Subcutaneous -Post Debridement (cm) - Length 3 2.8 3.5 -Post Debridement (cm) - Width 1.2 1.6 2.2 -Post Debridement (cm) - Depth 0.2 0.3 0.4 -Total Square (Post) (cm) 3.6 4.48 7.70 -Area of Debridement (cm) - Length 3 2.8 3.5 -Area of Debridement (cm) - Width 1.2 1.6 2.2 -Total Square (Area) (cm) 3.6 4.48 7.70 -Tunneling No No No -Undermining/Tunneling No No No -Circular Undermining No No No -Wound/Ulcer Outcome Not Healed Not Healed Not Healed -Ulcer Cleansing Rinsed/ Rinsed/ Rinsed/ Irrigated with Irrigated with Irrigated with Saline Saline Saline -Foul Odor after Cleansing No No No -Bioengineered Tissue No No No -Bleeding Controlled with Pressure Pressure Pressure -Offloading Yes Yes -Type of Offloading Surgical Shoe Surgical Shoe -Treatment Response Procedure Procedure Procedure Tolerated Well Tolerated Well Tolerated Well -Debridement - Subq, 1st 20sq cm Yes No No -Debridement - Bone, 1st 20sq cm Pain Scale: 0-10 Numeric Is Patient Pain Free? Yes Yes Yes 04/11/20 12:11 Wound Center Nurse 2 43-RIGHT POSTERIOR UPPER LEG -Time 12:11 -Correct Patient No -Correct Side, Site, Position No -Correct Procedure No -Procedure Performed No -Type of Procedure -Clinical Debridement -Tissue Removed -Post Debridement (cm) - Length 0 -Post Debridement (cm) - Width 0 -Post Debridement (cm) - Depth 0 -Total Square (Post) (cm) 0 -Area of Debridement (cm) - Length 0 -Area of Debridement (cm) - Width 0 -Total Square (Area) (cm) 0 -Tunneling No -Undermining/Tunneling No -Circular Undermining No -Wound/Ulcer Outcome Healed- Epithelialized -Ulcer Cleansing Rinsed/ Irrigated with Saline -Foul Odor after Cleansing No -Bioengineered Tissue No -Bleeding Controlled with Pressure -Offloading No -Type of Offloading -Treatment Response Procedure Tolerated Well -Debridement - Subq, 1st 20sq cm Yes 39-right lateral foot -Time 12:11 -Correct Patient Yes -Correct Side, Site, Position Yes -Correct Procedure Yes -Procedure Performed Yes -Type of Procedure Debridement -Clinical Debridement Subcutaneous -Tissue Removed Subcutaneous -Post Debridement (cm) - Length 1.2 -Post Debridement (cm) - Width 0.6 -Post Debridement (cm) - Depth 0.2 -Total Square (Post) (cm) 0.72 -Area of Debridement (cm) - Length 1.2 -Area of Debridement (cm) - Width 0.6 -Total Square (Area) (cm) 0.72 -Tunneling No -Undermining/Tunneling No -Circular Undermining No -Wound/Ulcer Outcome Not Healed -Ulcer Cleansing Rinsed/ Irrigated with Saline -Foul Odor after Cleansing No -Bioengineered Tissue No -Bleeding Controlled with Pressure -Offloading Yes -Type of Offloading Surgical Shoe -Treatment Response Procedure Tolerated Well -Debridement - Subq, 1st 20sq cm Yes #35 L Stump -Time 12:12 -Correct Patient Yes -Correct Side, Site, Position Yes -Correct Procedure Yes -Procedure Performed Yes -Type of Procedure Debridement -Clinical Debridement Subcutaneous -Tissue Removed Subcutaneous -Post Debridement (cm) - Length 1.1 -Post Debridement (cm) - Width 2.1 -Post Debridement (cm) - Depth 0.2 -Total Square (Post) (cm) 2.31 -Area of Debridement (cm) - Length 1.1 -Area of Debridement (cm) - Width 2.1 -Total Square (Area) (cm) 2.31 -Tunneling No -Undermining/Tunneling No -Circular Undermining No -Wound/Ulcer Outcome Not Healed -Ulcer Cleansing Rinsed/ Irrigated with Saline -Foul Odor after Cleansing No -Bioengineered Tissue No -Bleeding Controlled with Pressure -Offloading Yes -Type of Offloading Surgical Shoe -Treatment Response Procedure Tolerated Well -Debridement - Open, 1st 20sq cm -Debridement - Subq, 1st 20sq cm No #42- R MEDIAL FOOT -Time 12:13 -Correct Patient Yes -Correct Side, Site, Position Yes -Correct Procedure Yes -Procedure Performed Yes -Type of Procedure Debridement -Clinical Debridement Subcutaneous -Tissue Removed Subcutaneous -Post Debridement (cm) - Length 1.3 -Post Debridement (cm) - Width 2.1 -Post Debridement (cm) - Depth 0.2 -Total Square (Post) (cm) 2.73 -Area of Debridement (cm) - Length 1.3 -Area of Debridement (cm) - Width 2.1 -Total Square (Area) (cm) 2.73 -Tunneling No -Undermining/Tunneling No -Circular Undermining No -Wound/Ulcer Outcome Not Healed -Ulcer Cleansing Rinsed/ Irrigated with Saline -Foul Odor after Cleansing No -Bioengineered Tissue No -Bleeding Controlled with Pressure -Offloading Yes -Type of Offloading Surgical Shoe -Treatment Response Procedure Tolerated Well -Debridement - Subq, 1st 20sq cm No #37-right 2nd toe -Time 12:14 -Correct Patient Yes -Correct Side, Site, Position Yes -Correct Procedure Yes -Procedure Performed Yes -Type of Procedure Debridement -Clinical Debridement Bone -Tissue Removed Fascia,Tendon -Post Debridement (cm) - Length 1.7 -Post Debridement (cm) - Width 1.7 -Post Debridement (cm) - Depth 0.3 -Total Square (Post) (cm) 2.89 -Area of Debridement (cm) - Length 1.7 -Area of Debridement (cm) - Width 1.7 -Total Square (Area) (cm) 2.89 -Tunneling No -Undermining/Tunneling No -Circular Undermining No -Wound/Ulcer Outcome Not Healed -Ulcer Cleansing Rinsed/ Irrigated with Saline -Foul Odor after Cleansing No -Bioengineered Tissue No -Bleeding Controlled with Pressure -Offloading Yes -Type of Offloading Surgical Shoe -Treatment Response Procedure Tolerated Well -Debridement - Subq, 1st 20sq cm No -Debridement - Bone, 1st 20sq cm Yes Pain Scale: 0-10 Numeric Is Patient Pain Free? Yes WC - Nurse 3 - General Ulcer D/C NN Start: 03/21/20 10:45 Freq: Status: Active Protocol: Activity Type Activity Date Activity User E-Sign Co-Sign Detail Recorded Client Recorded Date Recorded By Document 03/21/20 11:12 KR [id number] 03/21/20 11:13 KR Document 04/04/20 11:57 JF [id number] 04/04/20 11:59 JF Document 04/11/20 12:41 JF [id number] 04/11/20 12:43 JF 03/21/20 04/04/20 04/11/20 11:12 11:57 12:41 Wound Care Nurse 3 43-RIGHT POSTERIOR UPPER LEG -Ulcer Cleansing Rinsed/ Irrigated with Saline -Foul Odor after Cleansing No -Other Dressing DAKINS -Primary Dressing Covered/Secured with Dry Gauze & Roll Gauze, Secured with Tape 39-right lateral foot -Ulcer Cleansing Rinsed/ Rinsed/ Rinsed/ Irrigated with Irrigated with Irrigated with Saline Saline Saline -Foul Odor after Cleansing No No No -Other Dressing DAKINS -Primary Dressing Covered/Secured with Dry Gauze & Dry Gauze & Dry Gauze, Roll Gauze, Roll Gauze, Secured with Secured with Secured with Tape Tape Tape -Other Covering dakins #35 L Stump -Ulcer Cleansing Rinsed/ Rinsed/ Irrigated with Irrigated with Saline Saline -Foul Odor after Cleansing No -Other Dressing DAKINS -Primary Dressing Covered/Secured with Dry Gauze & Dry Gauze & Roll Gauze, Roll Gauze, Secured with Secured with Tape Tape #42- R MEDIAL FOOT -Ulcer Cleansing Rinsed/ Rinsed/ Rinsed/ Irrigated with Irrigated with Irrigated with Saline Saline Saline -Foul Odor after Cleansing No No No -Other Dressing DAKINS dakins -Primary Dressing Covered/Secured with Dry Gauze & Dry Gauze & Dry Gauze & Roll Gauze, Roll Gauze, Roll Gauze, Secured with Secured with Secured with Tape Tape Tape #37-right 2nd toe -Ulcer Cleansing Rinsed/ Rinsed/ Rinsed/ Irrigated with Irrigated with Irrigated with Saline Saline Saline -Foul Odor after Cleansing No No No -Other Dressing DAKINS dakins -Primary Dressing Covered/Secured with Dry Gauze & Dry Gauze & Dry Gauze & Roll Gauze, Roll Gauze, Roll Gauze, Secured with Secured with Secured with Tape Tape Tape Right -Compression Wrap [place] Wrap -Other farrow wrap Left -Compression Wrap [place] Wrap -Other double tubigrip from home Pain Scale: 0-10 Numeric Is Patient Pain Free? Yes Yes Yes WC - Visit Discharge Discharge Condition Stable Stable Stable Ambulatory Status Wheelchair Wheelchair Wheelchair Transportation Ambulance [facility] Medication Reconcilliation completed & Yes Yes provided to patient/care provider Clinical Summary of Care Provided Yes Yes Wound debrided: second toe Laterality: Right Wound Grade/Stage: grade 3 Type of Debridement: Excisional debridement Anesthesia Used: 5% Lidocaine Gel Depth: in the subcutaneous layer Percentage of wound debrided: 100 Instrument Used: #15 blade Tissue Removed: fibrous, devitalized subcutaneous and bone, biofilm, slough Severity: Necrosis of Bone Amount of bleeding with debridement: Moderate Bleeding Controlled with: Pressure Patient tolerated procedure well - Additional Wound Wound debrided: medial and lateral forefoot Laterality: Right Wound Grade/Stage: grade 1 Type of Debridement: Excisional debridement Anesthesia Used: 5% Lidocaine Gel Depth: in the subcutaneous layer Percentage of wound debrided: 100 Instrument Used: #15 blade Tissue Removed: fibrous, devitalized subcutaneous, biofilm, slough Severity: Fat Layer Exposed Amount of bleeding with debridement: Mild Bleeding Controlled with: Pressure Patient tolerated procedure: Patient tolerated procedure well - Additional Wound Wound debrided: anterior leg Laterality: Left Wound Grade/Stage: grade 1 Type of Debridement: Excisional debridement Anesthesia Used: 5% Lidocaine Gel Depth: in the subcutaneous layer Percentage of wound debrided: 100 Instrument Used: #15 blade Tissue Removed: fibrous, devitalized subcutaneous, biofilm, slough Severity: Fat Layer Exposed Amount of bleeding with debridement: Mild Bleeding Controlled with: Pressure Patient tolerated procedure: Patient tolerated procedure well Assessment/Plan Active Problems Injury of right foot including toes (Acute) Ulcer of right foot with necrosis of bone (Acute) Nonhealing amputation stump (Chronic) Type 2 diabetes mellitus with diabetic polyneuropathy (Chronic) Ulcer of left lower extremity with fat layer exposed (Chronic) Ulcer of right foot with fat layer exposed (Chronic) Type 2 diabetes mellitus with diabetic polyneuropathy (Chronic) Assessment: Open surgical wound anterior aspect left BKA stump. posterior right leg ulcer, healed. second toe ulcer, status change with exposed deep tissue (jerez 2) and osteomyelitis work up in process. Right plantar lateral forefoot ulcer, jerez grade 1, no infection. Right plantar medial forefoot ulcer, jerez grade 1, no infection. Injury right second toe, traumatic; work-up in still in process. Peripheral vascular disease. Diabetes with neuropathy. Plan: I reviewed and discussed his case. He was reassured no signs of infection are noted today to right leg and right foot ulcer sites or left leg. To change all ulcer sites daily with Dakin wet-to-dry dressings. All right lower extremity ulcer sites were debrided as noted in the clinical panel. To wash daily with soap and water. I am concerned about his a forementioned x-ray changes and visualized bone of the second toe. After verbal consent and alcohol local preparation, a clean instrument (nipper) was used to resect the remaining aspect of the distal phalanx of the second toe and this was sent to microbiology (aerobic, anaerobic, acid-fast, fungal) and also to pathology for histopathological evaluation and work-up of osteomyelitis. Antibiotics and infectious disease referral will be considered pending these results and c linical progression. He was advised to keep pressure off of the ulcer sites and a surgical shoe with heel weightbearing. To ambulate with his potential surgical shoe in place if able to as he presents today in automated wheelchair. His right foot surgical shoe was adjusted to more proximal position to ensure mechanical pressure is not applied to the second toe previously. His recent injury is noted and I recommend an x-ray to look for any dislocations or fractures. He was able to finally get this exam completed and it was reviewed and discussed today. There is no soft tissue emphysema, foreign body, acute fracture or dislocation. Edema to the forefoot is noted. There is resorption of most of the distal phalanx of the second toe likely consistent with osteomyelitis given his chronic ulcer history. I also recommended updated labs including CBC, CMP, ESR, and C-reactive protein due to the status change of his right second toe ulcer site. This is also reviewed. He did not have l eukocytosis. His white blood cell count was 6.0. His ESR is 124 and C-reactive protein is 40.2. It is noted he does have multiple sources of potential inflammation at this time however these value elevations are also supportive of osteomyelitis concern. It is also noted his renal function is not normal at this time. To continue to working with home physical therapy to prevent deconditioning and to promote safe ambulation, and for wound care. To continue to optimize healing with improved glycemic index, continued weight reduction, and well-balanced [employer] nutrients. He was reassured no local signs of infection are noted today. Nutritional referrals were previously recommended. His significant weight loss is noted which may be a result of his significant dietary changes versus some other autoimmune or immunocompromise status given his oral lesion developments and ongoing delays in healing. He did follow-up with ears nose and throat who diagnosed him with acid reflux. He is continuing to work with this specialist as well as his primary care physician in regards to medication management. His hemoglobin A1c is significantly improved to 6.9%. To continue with edema management including his compression wraps and also lymphedema pumps. To return to clinic in 1 week or to call sooner if you have any questions or concerns. The problems addressed require a moderate decision making level which includes one or more chronic illnesses (w/ exacerbation, progression, or side effects), two or more stable chronic illnesses, one undiagnosed new problem w/ uncertain prognosis, one acute illness with systemic symptoms. The medical decision making level is moderate. There is noted moderate risk of morbidity after considering this treatment plan and diagnostic data. Considerations were given to prescription management, decisions regarding surgical options, or social determinants of health. Note: [employer] speech recognition nuclear medicine medical director software was used to create portions of this document. Sound-alike and misspelled words, as well as other nuclear medicine medical director errors may be contained in the documentation. . [employer] 2020. Reviewed today: Medication and allergies were reviewed and reconciled. Reviewed 04-04-2020: His blood pressure is elevated over 120/80 and is noted to be at 138/62. Follow-up with primary care physician. Diet and activity adjustments were discussed to optimize overall health and to promote better wound healing. It is noted he has not a current tobacco user. He was a former smoker. His CODE STATUS was confirmed as a full code.
== END 2020-04-15 23:59 ==
LOC: WC 11:00
PROVIDERS: PCP Family Medicine; Visit Provider Surgery
DX: E11.621 Type 2 diabetes mellitus with foot ulcer (principal); L97.512 Non-pressure chronic ulcer of other part of right foot with fat layer exposed; L97.822 Non-pressure chronic ulcer of other part of left lower leg with fat layer exposed; E11.622 Type 2 diabetes mellitus with other skin ulcer; T87.89 Other complications of amputation stump; Y83.8 Other surgical procedures as the cause of abnormal reaction of the patient, or of later complication, without mention of misadventure at the time of the procedure; E11.42 Type 2 diabetes mellitus with diabetic polyneuropathy; E11.51 Type 2 diabetes mellitus with diabetic peripheral angiopathy without gangrene; K21.9 Gastro-esophageal reflux disease without esophagitis; Z87.891 Personal history of nicotine dependence
CPT/HCPCS: 11042; 11044; 87015; 87070; 87075; 87077; 87101; 87116; 87176; 87186; 87205; 87206; 88304; 88307; 88311; 97597

== ENCOUNTER 2020-05-02 11:00 | Outpatient (RCR) | payer MEDICARE, MEDICAID, SELFPAY ==
[2020-04-16 00:16] VITALS: BP 140/57; PULSE 59; RESP 20; TEMP 36.2
--- NOTE | 2020-04-25 11:10 | BONBX_PTH ---
PATIENT: [place] [facility] LOC: U#:[id number] AGE/SX: 64/M ROOM: RE05/02/[address]: Dr. Tip Pompa MD : 1955 BED: DIS: 05/13/2020 SPEC #: [id number] RECD: 04/25/20 13:05 STATUS: DON BRUCE #: [id number] RENUKA: 04/25/20 11:[address]: Tip Pompa DEPT: SURGICAL PATHOLOGY RECD BY: Marlene Eldridge ENTERED: 04/26/20 08:06 SP TYPE: Bone OTHR DR: Dr. Ac Felix MD Tissues: Toe, NOS Procedures: Decalcification bone/plaque Surgery Specimen Level V HEADER OPERATION: Bone biopsy, right second toe PRE-OP DIAGNOSIS: Osteomyelitis suspected TISSUE SUBMITTED: Right second toe MICROSCOPIC DIAGNOSIS Bone of right second toe, biopsy: Acute osteomyelitis and associated granulation. AM:enrique 04/30/2020 MICROSCOPIC DESCRIPTION Slides are reviewed. GROSS DESCRIPTION Received in fixative is one container labeled with the patient's name and designated right second toe. The specimen consists of a piece of bone measuring 1 x 0.5 x 0.5 cm. A piece of nail is noted at the surface measuring 1 x 0.5 cm. The entire specimen is submitted in one cassette after decalcification. / SJ:enrique 04/26/20 TC:2 CPT: 47788, 63505
[2020-04-25 11:17] VITALS: BP 163/68; PULSE 64; RESP 18; TEMP 36.1; BMI 47.9
[2020-04-25 12:26] VITALS: BP 160/70
--- NOTE | 2020-04-25 13:23 | PN.PCM_ITS ---
(1) Cellulitis of right foot Status: Acute Code(s): L03.115 - Cellulitis of right lower limb (2) Ulcer of right lower extremity with fat layer exposed Status: Chronic Code(s): L97.912 - Non-pressure chronic ulcer of unspecified part of right lower leg with fat layer exposed (3) Ulcer of right foot with necrosis of bone Status: Acute Code(s): L97.514 - Non-pressure chronic ulcer of other part of right foot with necrosis of bone (4) Osteomyelitis of right foot Status: Suspected Code(s): M86.9 - Osteomyelitis, unspecified (5) Lymphedema Status: Chronic Code(s): I89.0 - Lymphedema, not elsewhere classified (6) Venous insufficiency Status: Chronic Code(s): I87.2 - Venous insufficiency (chronic) (peripheral) (7) Ulcer of left lower extremity with fat layer exposed Status: Chronic Code(s): L97.922 - Non-pressure chronic ulcer of unspecified part of left lower leg with fat layer exposed Type of Wound Date of Service: 04/25/20 Chief Complaint: Open surgical wound anterior aspect left BKA stump. Right second toe ulcer with recent and recurrent injury and infection. Right plantar lateral foot ulcer. Right plantar medial foot ulcer History of Wound: This 64-year-old male had a left below-knee amputation p erformed with residual ulcer. He also has multiple right foot ulcers and a right leg ulcer, and has been performing dressing changes as advised. He denies fever, chills, nausea, vomiting. He denies redness or odor. He has been trying to offload and keep his swelling reduced by wearing Tubigrip compression dressings. He denies redness or odor. He is ambulating in a motorized scooter. He has continued bleeding and drainage from his right foot. He denies new traumas to his right foot. He is not aware of any purulent drainage or odor coming from his right foot or his left leg Progress of Wound: Left below-knee amputation with ulcer stable. Worsening status of right second toe ulcer now with continued concern of underlying osteomyelitis and concurrent recent injury. improving right foot ulcers (medial and lateral forefoot) - Physical Exam Vital Signs Temp Pulse Resp BP 97 F L 64 18 160/70 H 04/25/20 11:17 04/25/20 11:17 04/25/20 11:17 04/25/20 12:26 General: Alert, Oriented x3, Cooperative, No apparent distress HEENT: Atraumatic Extremities: No cyanosis, Capillary Refill Less than 3 Seconds, No Calf Tenderness - Negative Keara and Simmons sign right. Compartments remain soft to palpate bilateral. No bogginess or fluctuance on palpation. Right hallux amputation. Left below-knee amputation., Diminished Peripheral Pulses, Edema - Increased right foot Skin: Ulcer/ Wound - Pale granular base left ulcer. Right medial and lateral foot and third distal toe ulcers granular superficial without infection. There is no erythema, streaking, odor or purulence. There is some fibrinous devitaliz ed tissue to the medial ulcer of the forefoot., - - There is also continued exposed bone to the second toe with devitalized adjacent fibers and healthy tissue with increased edema. There is concern of osteomyelitis. Adjacent skin is peeling, atrophic, and thin Wound Measurements and Assessment WC - Nurse 1 - General Ulcer Measurement Start: 04/25/20 11:12 Freq: Status: Active Protocol: Activity Type Activity Date Activity User E-Sign Co-Sign Detail Recorded Client Recorded Date Recorded By Document 04/25/20 11:17 RB [id number] 04/25/20 11:29 RB 04/25/20 11:17 Wound Center Nurse 1 [Ulcer Assessment] 39-right lateral foot -Current Size (cm) - Length 1 -Current Size (cm) - Width 0.8 -Current Size (cm) - Depth 0.2 -Total Square Cm 0.8 -Photo Taken No -Tunneling No -Undermining/Tunneling No -Circular Undermining No -Exudate Amt Medium -Exudate Type Serosanguineous -Wound Margin Thickened -Granulation Amt Medium (34-66%) -Granulation Quality [place] -Slough/Fibrin Yes -Necrosis Amt Small (1-33%) -Necrotic Tissue Type Adherent Slough -Structure Exposed N/A -Texture (Susy-wound Skin Appearance) Assessed -Moisture (Susy-wound Skin Appearance Assessed,Dry/ ) Scaly -Color (Susy-wound Skin Appearance) Assessed -Temperature (Susy-wound Skin No Abnormality Appearance) (Pt Warm) -Tenderness on Palpation (Susy-wound No Skin Appearance) -Ulcer Cleansing Wound Cleanser -Foul Odor after Cleansing No -Anesthetic Used 4% Lidocaine Solution #35 L Stump -Combined with other wound No -Current Size (cm) - Length 1 -Current Size (cm) - Width 1.5 -Current Size (cm) - Depth 0.4 -Total Square Cm 1.5 -Tunneling No -Undermining/Tunneling No -Circular Undermining No -Exudate Amt Medium -Exudate Type Purulent -Wound Margin Thickened -Granulation Amt Medium (34-66%) -Granulation Quality [place] -Slough/Fibrin Yes -Necrosis Amt Medium (34-66%) -Necrotic Tissue Type Adherent Slough -Structure Exposed N/A -Texture (Susy-wound Skin Appearance) Assessed -Moisture (Susy-wound Skin Appearance Assessed,Dry/ ) Scaly -Color (Susy-wound Skin Appearance) Assessed -Temperature (Susy-wound Skin No Abnormality Appearance) (Pt Warm) -Tenderness on Palpation (Susy-wound No Skin Appearance) -Ulcer Cleansing Wound Cleanser -Foul Odor after Cleansing No -Anesthetic Used 4% Lidocaine Solution #42- R MEDIAL FOOT -Combined with other wound No -Current Size (cm) - Length 1.1 -Current Size (cm) - Width 2 -Current Size (cm) - Depth 0.4 -Total Square Cm 2.2 -Tunneling No -Undermining/Tunneling No -Circular Undermining No -Exudate Amt Medium -Exudate Type Purulent -Wound Margin Thickened -Granulation Amt Medium (34-66%) -Granulation Quality [place] -Slough/Fibrin Yes -Necrosis Amt Small (1-33%) -Necrotic Tissue Type Adherent Slough -Structure Exposed N/A -Texture (Susy-wound Skin Appearance) Assessed -Moisture (Susy-wound Skin Appearance Assessed,Dry/ ) Scaly -Color (Susy-wound Skin Appearance) Assessed -Temperature (Susy-wound Skin No Abnormality Appearance) (Pt Warm) -Tenderness on Palpation (Susy-wound No Skin Appearance) -Ulcer Cleansing Wound Cleanser -Foul Odor after Cleansing No -Anesthetic Used 4% Lidocaine Solution #37-right 2nd toe -Combined with other wound No -Current Size (cm) - Length 1.5 -Current Size (cm) - Width 1.6 -Current Size (cm) - Depth 0.1 -Total Square Cm 2.40 -Tunneling No -Undermining/Tunneling No -Circular Undermining No -Exudate Amt Medium -Exudate Type Serosanguineous -Wound Margin Flat & Intact -Granulation Amt Medium (34-66%) -Granulation Quality [place] -Slough/Fibrin Yes -Necrosis Amt Small (1-33%) -Necrotic Tissue Type Adherent Slough -Structure Exposed N/A -Texture (Susy-wound Skin Appearance) Assessed -Moisture (Susy-wound Skin Appearance Assessed,Dry/ ) Scaly -Color (Susy-wound Skin Appearance) Assessed -Temperature (Susy-wound Skin No Abnormality Appearance) (Pt Warm) -Tenderness on Palpation (Susy-wound No Skin Appearance) -Ulcer Cleansing Wound Cleanser -Foul Odor after Cleansing No -Anesthetic Used 4% Lidocaine Solution [Edema Assessment] -Lower Limb Edema Present Yes -Right Calf (cm) 46 -Right Ankle (cm) 30.5 WC - Nurse 2 - General Ulcer CM Notes Start: 04/25/20 11:12 Freq: Status: Active Protocol: Activity Type Activity Date Activity User E-Sign Co-Sign Detail Recorded Client Recorded Date Recorded By Document 04/25/20 11:51 NORRIS [id number] 04/25/20 12:10 NORRIS 04/25/20 11:51 Wound Center Nurse 2 [Procedure/Treatment] 44-right 3rd toe -Time 12:09 -Correct Patient Yes -Correct Side, Site, Position Yes -Correct Procedure Yes -Procedure Performed Yes -Type of Procedure Debridement -Clinical Debridement Subcutaneous -Tissue Removed Subcutaneous -Post Debridement (cm) - Length 1.4 -Post Debridement (cm) - Width 0.8 -Post Debridement (cm) - Depth 0.1 -Total Square (Post) (cm) 1.12 -Area of Debridement (cm) - Length 1.4 -Area of Debridement (cm) - Width 0.8 -Total Square (Area) (cm) 1.12 -Tunneling No -Undermining/Tunneling No -Circular Undermining No -Wound/Ulcer Outcome Not Healed -Ulcer Cleansing Rinsed/ Irrigated with Saline -Foul Odor after Cleansing No -Bioengineered Tissue No -Bleeding Controlled with Pressure -Offloading Yes -Type of Offloading Surgical Shoe -Treatment Response Procedure Tolerated Well -Debridement - Subq, 1st 20sq cm No 39-right lateral foot -Time 11:52 -Correct Patient Yes -Correct Side, Site, Position Yes -Correct Procedure Yes -Procedure Performed Yes -Type of Procedure Debridement -Clinical Debridement Subcutaneous -Tissue Removed Subcutaneous -Post Debridement (cm) - Length 1 -Post Debridement (cm) - Width 1 -Post Debridement (cm) - Depth 0.2 -Total Square (Post) (cm) 1 -Area of Debridement (cm) - Length 1 -Area of Debridement (cm) - Width 1 -Total Square (Area) (cm) 1 -Tunneling No -Undermining/Tunneling No -Circular Undermining No -Wound/Ulcer Outcome Not Healed -Ulcer Cleansing Rinsed/ Irrigated with Saline -Foul Odor after Cleansing No -Bioengineered Tissue No -Bleeding Controlled with Pressure -Offloading Yes -Type of Offloading Surgical Shoe -Treatment Response Procedure Tolerated Well -Debridement - Subq, 1st 20sq cm Yes #35 L Stump -Correct Patient No -Correct Side, Site, Position No -Correct Procedure No -Procedure Performed No -Wound/Ulcer Outcome Not Healed #42- R MEDIAL FOOT -Time 11:51 -Correct Patient Yes -Correct Side, Site, Position Yes -Correct Procedure Yes -Procedure Performed Yes -Type of Procedure Debridement -Clinical Debridement Subcutaneous -Tissue Removed Subcutaneous -Post Debridement (cm) - Length 1.2 -Post Debridement (cm) - Width 2 -Post Debridement (cm) - Depth 0.4 -Total Square (Post) (cm) 2.4 -Area of Debridement (cm) - Length 1.2 -Area of Debridement (cm) - Width 2 -Total Square (Area) (cm) 2.4 -Tunneling No -Undermining/Tunneling No -Circular Undermining No -Wound/Ulcer Outcome Not Healed -Ulcer Cleansing Rinsed/ Irrigated with Saline -Foul Odor after Cleansing No -Bioengineered Tissue No -Bleeding Controlled with Pressure -Offloading Yes -Type of Offloading Surgical Shoe -Treatment Response Procedure Tolerated Well -Debridement - Subq, 1st 20sq cm Yes #37-right 2nd toe -Time 12:04 -Correct Patient Yes -Correct Side, Site, Position Yes -Correct Procedure Yes -Procedure Performed Yes -Type of Procedure Debridement -Clinical Debridement Bone -Tissue Removed Tendon,Biofilm, Slough,Non- viable tissue -Post Debridement (cm) - Length 2.8 -Post Debridement (cm) - Width 1 -Post Debridement (cm) - Depth 1 -Total Square (Post) (cm) 2.8 -Area of Debridement (cm) - Length 2.8 -Area of Debridement (cm) - Width 1 -Total Square (Area) (cm) 2.8 -Tunneling No -Undermining/Tunneling No -Circular Undermining No -Wound/Ulcer Outcome Not Healed -Ulcer Cleansing Rinsed/ Irrigated with Saline -Foul Odor after Cleansing No -Bioengineered Tissue No -Bleeding Controlled with Pressure -Offloading Yes -Type of Offloading Surgical Shoe -Treatment Response Procedure Tolerated Well -Debridement - Bone, 1st 20sq cm Yes [See Physician Procedure note for Specifics] Pain Scale: 0-10 Numeric [Pain] -Is Patient Pain Free? Yes WC - Nurse 3 - General Ulcer D/C NN Start: 04/25/20 11:12 Freq: Status: Active Protocol: Activity Type Activity Date Activity User E-Sign Co-Sign Detail Recorded Client Recorded Date Recorded By Document 04/25/20 12:26 RB [id number] 04/25/20 12:30 RB 04/25/20 12:26 Wound Care Nurse 3 [Wound Dressing] 44-right 3rd toe -Ulcer Cleansing Wound Cleanser -Other Dressing dakins solution -Primary Dressing Covered/Secured Dry Gauze,Dry with Gauze & Roll Gauze,Secured with Tape 39-right lateral foot -Ulcer Cleansing Wound Cleanser -Other Dressing dakins solution moistened gauze to all wounds -Primary Dressing Covered/Secured Dry Gauze & with Roll Gauze, Secured with Tape #35 L Stump -Ulcer Cleansing Wound Cleanser -Other Dressing dakins moistened gauzze -Primary Dressing Covered/Secured Dry Gauze,Dry with Gauze & Roll Gauze,Secured with Tape #42- R MEDIAL FOOT -Ulcer Cleansing Wound Cleanser -Other Dressing dakin moistened gauze -Primary Dressing Covered/Secured Dry Gauze & with Roll Gauze, Secured with Tape #37-right 2nd toe -Ulcer Cleansing Wound Cleanser -Other Dressing dakin moistened gauze -Primary Dressing Covered/Secured Dry Gauze & with Roll Gauze, Secured with Tape [Compression Applied] Left -Other single tubigrip to stump Right -Other rachael wrap [Post Procedure Tolerated] -Treatment Response Procedure Tolerated Well Vital Signs [Blood Pressure] -Blood Pressure (90/60-120/80) 160/70 H -Blood Pressure Mean (mm Hg) 100 -Source Monitor -Position Sitting -Blood Pressure Location Right Arm Pain Scale: 0-10 Numeric [Pain] -Is Patient Pain Free? Yes Teaching: Wound Center [Wound Center Education] (Items with an * have Printed Materials Available- Please identify what is given to patient under the Teaching materials given to patient and caregiver Section. Offload: Mattress, Cushion, Reposition -Person Taught Patient -Teaching Method Discussion -Response to teaching Verbalize understanding WC - Visit Discharge [Visit Discharge Information] -Discharge Condition Stable -Ambulatory Status Wheelchair -Transportation Private Auto -Medication Reconcilliation completed No & provided to patient/care provider -Clinical Summary of Care Provided Yes Musculoskeletal: No Tenderness to Palpation of Joints or Extremities, Muscle Wasting Neurological: - - Lack of normal epicritic sensation light touch is consistent with neuropathy status Psych/Mental Status: Normal Affect, Appropriate Debridement Note Post-Debridement Measurements/Treatment WC - Nurse 2 - General Ulcer CM Notes Start: 04/25/20 11:12 Freq: Status: Active Protocol: Activity Type Activity Date Activity User E-Sign Co-Sign Detail Recorded Client Recorded Date Recorded By Document 04/25/20 11:51 [id number] 04/25/20 12:10 NORRIS 04/25/20 11:51 Wound Center Nurse 2 44-right 3rd toe -Time 12:09 -Correct Patient Yes -Correct Side, Site, Position Yes -Correct Procedure Yes -Procedure Performed Yes -Type of Procedure Debridement -Clinical Debridement Subcutaneous -Tissue Removed Subcutaneous -Post Debridement (cm) - Length 1.4 -Post Debridement (cm) - Width 0.8 -Post Debridement (cm) - Depth 0.1 -Total Square (Post) (cm) 1.12 -Area of Debridement (cm) - Length 1.4 -Area of Debridement (cm) - Width 0.8 -Total Square (Area) (cm) 1.12 -Tunneling No -Undermining/Tunneling No -Circular Undermining No -Wound/Ulcer Outcome Not Healed -Ulcer Cleansing Rinsed/ Irrigated with Saline -Foul Odor after Cleansing No -Bioengineered Tissue No -Bleeding Controlled with Pressure -Offloading Yes -Type of Offloading Surgical Shoe -Treatment Response Procedure Tolerated Well -Debridement - Subq, 1st 20sq cm No 39-right lateral foot -Time 11:52 -Correct Patient Yes -Correct Side, Site, Position Yes -Correct Procedure Yes -Procedure Performed Yes -Type of Procedure Debridement -Clinical Debridement Subcutaneous -Tissue Removed Subcutaneous -Post Debridement (cm) - Length 1 -Post Debridement (cm) - Width 1 -Post Debridement (cm) - Depth 0.2 -Total Square (Post) (cm) 1 -Area of Debridement (cm) - Length 1 -Area of Debridement (cm) - Width 1 -Total Square (Area) (cm) 1 -Tunneling No -Undermining/Tunneling No -Circular Undermining No -Wound/Ulcer Outcome Not Healed -Ulcer Cleansing Rinsed/ Irrigated with Saline -Foul Odor after Cleansing No -Bioengineered Tissue No -Bleeding Controlled with Pressure -Offloading Yes -Type of Offloading Surgical Shoe -Treatment Response Procedure Tolerated Well -Debridement - Subq, 1st 20sq cm Yes #35 L Stump -Correct Patient No -Correct Side, Site, Position No -Correct Procedure No -Procedure Performed No -Wound/Ulcer Outcome Not Healed #42- R MEDIAL FOOT -Time 11:51 -Correct Patient Yes -Correct Side, Site, Position Yes -Correct Procedure Yes -Procedure Performed Yes -Type of Procedure Debridement -Clinical Debridement Subcutaneous -Tissue Removed Subcutaneous -Post Debridement (cm) - Length 1.2 -Post Debridement (cm) - Width 2 -Post Debridement (cm) - Depth 0.4 -Total Square (Post) (cm) 2.4 -Area of Debridement (cm) - Length 1.2 -Area of Debridement (cm) - Width 2 -Total Square (Area) (cm) 2.4 -Tunneling No -Undermining/Tunneling No -Circular Undermining No -Wound/Ulcer Outcome Not Healed -Ulcer Cleansing Rinsed/ Irrigated with Saline -Foul Odor after Cleansing No -Bioengineered Tissue No -Bleeding Controlled with Pressure -Offloading Yes -Type of Offloading Surgical Shoe -Treatment Response Procedure Tolerated Well -Debridement - Subq, 1st 20sq cm Yes #37-right 2nd toe -Time 12:04 -Correct Patient Yes -Correct Side, Site, Position Yes -Correct Procedure Yes -Procedure Performed Yes -Type of Procedure Debridement -Clinical Debridement Bone -Tissue Removed Tendon,Biofilm, Slough,Non- viable tissue -Post Debridement (cm) - Length 2.8 -Post Debridement (cm) - Width 1 -Post Debridement (cm) - Depth 1 -Total Square (Post) (cm) 2.8 -Area of Debridement (cm) - Length 2.8 -Area of Debridement (cm) - Width 1 -Total Square (Area) (cm) 2.8 -Tunneling No -Undermining/Tunneling No -Circular Undermining No -Wound/Ulcer Outcome Not Healed -Ulcer Cleansing Rinsed/ Irrigated with Saline -Foul Odor after Cleansing No -Bioengineered Tissue No -Bleeding Controlled with Pressure -Offloading Yes -Type of Offloading Surgical Shoe -Treatment Response Procedure Tolerated Well -Debridement - Bone, 1st 20sq cm Yes Pain Scale: 0-10 Numeric Is Patient Pain Free? Yes WC - Nurse 3 - General Ulcer D/C NN Start: 04/25/20 11:12 Freq: Status: Active Protocol: Activity Type Activity Date Activity User E-Sign Co-Sign Detail Recorded Client Recorded Date Recorded By Document 04/25/20 12:26 RB [id number] 04/25/20 12:30 RB 04/25/20 12:26 Wound Care Nurse 3 44-right 3rd toe -Ulcer Cleansing Wound Cleanser -Other Dressing dakins solution -Primary Dressing Covered/Secured with Dry Gauze,Dry Gauze & Roll Gauze,Secured with Tape 39-right lateral foot -Ulcer Cleansing Wound Cleanser -Other Dressing dakins solution moistened gauze to all wounds -Primary Dressing Covered/Secured with Dry Gauze & Roll Gauze, Secured with Tape #35 L Stump -Ulcer Cleansing Wound Cleanser -Other Dressing dakins moistened gauzze -Primary Dressing Covered/Secured with Dry Gauze,Dry Gauze & Roll Gauze,Secured with Tape #42- R MEDIAL FOOT -Ulcer Cleansing Wound Cleanser -Other Dressing dakin moistened gauze -Primary Dressing Covered/Secured with Dry Gauze & Roll Gauze, Secured with Tape #37-right 2nd toe -Ulcer Cleansing Wound Cleanser -Other Dressing dakin moistened gauze -Primary Dressing Covered/Secured with Dry Gauze & Roll Gauze, Secured with Tape Left -Other single tubigrip to stump Right -Other rachael wrap Treatment Response Procedure Tolerated Well Vital Signs Blood Pressure (90/60-120/80) 160/70 H Blood Pressure Mean (mm Hg) 100 Source Monitor Position Sitting Blood Pressure Location Right Arm Pain Scale: 0-10 Numeric Is Patient Pain Free? Yes Teaching: Wound Center Offload: Mattress, Cushion, Reposition -Person Taught Patient -Teaching Method Discussion -Response to teaching Verbalize understanding WC - Visit Discharge Discharge Condition Stable Ambulatory Status Wheelchair Transportation Private Auto Medication Reconcilliation completed & No provided to patient/care provider Clinical Summary of Care Provided Yes Wound debrided: medial and lateral forefoot and third dorsal distal toe Laterality: Right Wound Grade/Stage: grade 1 Type of Debridement: Excisional debridement Anesthesia Used: 5% Lidocaine Gel Depth: in the subcutaneous layer Percentage of wound debrided: 100 Instrument Used: #15 blade Tissue Removed: fibrous, devitalized subcutaneous, biofilm, slough Severity: Fat Layer Exposed Amount of bleeding with debridement: Mild Bleeding Controlled with: Pressure Patient tolerated procedure well - Additional Wound Wound debrided: dorsal distal 2nd toe Laterality: Right Wound Grade/Stage: grade 3 Type of Debridement: Excisional debridement Anesthesia Used: 5% Lidocaine Gel Depth: in the subcutaneous layer Percentage of wound debrided: 100 Instrument Used: #15 blade Tissue Removed: fibrous, devitalized subcutaneous, biofilm, slough Severity: Fat Layer Exposed Amount of bleeding with debridement: Mild Bleeding Controlled with: Pressure Patient tolerated procedure: Patient tolerated procedure well Assessment/Plan Active Problems Cellulitis of right foot (Acute) Ulcer of right lower extremity with fat layer exposed (Chronic) Ulcer of right foot with necrosis of bone (Acute) Lymphedema (Chronic) Venous insufficiency (Chronic) Ulcer of left lower extremity with fat layer exposed (Chronic) Assessment: Open surgical wound anterior aspect left BKA stump. second toe ulcer, status change with exposed discolored bone (eldridge 3). Right plantar lateral forefoot ulcer, eldridge grade 1, no infection. Right plantar medial forefoot ulcer, eldridge grade 1, no infection. Peripheral vascular disease. Diabetes with neuropathy. Plan: I reviewed and discussed his case. His ulcer for debrided is on the clinical panel to the right foot in a subcutaneous excisional manner. He was also advised he has worsening status of the right second toe now with exposed discolored bone presumably the head of the middle phalanx. This is considered a Eldridge grade 3 ulcer and the exposed bone was sent to both microbiology and pathology. To change all ulcer sites daily with Dakin wet-to-dry dressings. To continue to wash daily with soap and water. Augmentin prescription was sent to [facility] he was advised on proper use. He understands additional antibiotics or updates may be recommended based off of his culture results. I recommend an infectious disease consultation due to his high risk status and osteomyelitis diagnosis, and prior history of multidrug resistance. It is noted he had a prior penicillin allergy documented and he relates he has taken Augmentin previously without issues. He also had an IV penicillin-based drug administered while entering a previous hospital visit and it was determined at that time that he does not have a true penicillin allergy. His prior foot x-rays did not have soft tissue emphysema but there was disintegration of the distal second toe and his injury and now concern of infection site. After verbal consent and alcohol local preparation, a clean instrument (nipper) was used to resect the bone by biopsy that was a forementioned (aerobic, anaerobic, acid-fast, fungal) and also to pathology for histopathological evaluation and work-up of osteomyelitis. He was advised to keep pressure off of the ulcer sites and a surgical shoe with heel weightbearing. To ambulate with his potential surgical shoe in place if able to as he presents today in automated wheelchair. I also recommended updated labs including CBC, CMP, ESR, and C- reactive protein due to the status change of his right second toe ulcer site. He had labs performed 2 weeks ago and I recommend updating these again today. His last lab was white blood cell count of 6.0. His prior ESR is 124 and C- reactive protein is 40.2. It is noted he does have multiple sources of pot ential inflammation at this time however these value elevations are also supportive of osteomyelitis concern. To continue to optimize healing with improved glycemic index, continued weight reduction, and well-balanced [employer] nutrients. He was reassured no local signs of infection are noted today. Nutritional referrals were previously recommended. His significant weight loss is noted which may be a result of his significant dietary changes versus some other autoimmune or immunocompromise status given his oral lesion developments and ongoing delays in healing. He did follow-up with ears nose and throat who diagnosed him with acid reflux. He is continuing to work with this specialist as well as his primary care physician in regards to medication management. His hemoglobin A1c is significantly improved to 6.9%. To continue with edema management including his compression wraps and also lymphedema pumps. To return to clinic in 1 week or to call sooner if you have any questions or concerns. If his local signs of infection or status worsens or he develops systemic signs of illness he was advised to call the office immediately or present to the emergency room. The problems addressed require a moderate decision making level which includes one or more chronic illnesses (w/ exacerbation, progression, or side effects), two or more stable chronic illnesses, one undiagnosed new problem w/ uncertain prognosis, one acute illness with systemic symptoms. The medical decision making level is moderate. There is noted moderate risk of morbidity after considering this treatment plan and diagnostic data. Considerations were given to prescription management, decisions regarding surgical options, or social determinants of health. Note: [employer] speech recognition director inpatient headache program software was used to create portions of this document. Sound-alike and misspelled words, as well as other director inpatient headache program errors may be contained in the documentation. . Diana 2020. Reviewed today: Medication and allergies were reviewed and reconciled. Reviewed 04-04-2020: His blood pressure is elevated over 120/80 and is noted to be at 138/62. Follow-up with primary care physician. Diet and activity adjustments were discussed to optimize overall health and to promote better wound healing. It is noted he has not a current tobacco user. He was a former smoker. His COD E STATUS was confirmed as a full code.
[2020-05-02 11:13] VITALS: BP 204/60; PULSE 57; RESP 18; TEMP 36.5; BMI 47.9
[2020-05-02 12:27] VITALS: BP 165/80
--- NOTE | 2020-05-02 12:33 | PN.PCM_ITS ---
(1) Osteomyelitis of right foot Status: Acute Code(s): M86.9 - Osteomyelitis, unspecified Comment: right second toe (2) Ulcer of right lower extremity with fat layer exposed Status: Chronic Code(s): L97.912 - Non-pressure chronic ulcer of unspecified part of right lower leg with fat layer exposed (3) Ulcer of right foot with necrosis of bone Status: Acute Code(s): L97.514 - Non-pressure chronic ulcer of other part of right foot with necrosis of bone (4) Lymphedema Status: Chronic Code(s): I89.0 - Lymphedema, not elsewhere classified (5) Venous insufficiency Status: Chronic Code(s): I87.2 - Venous insufficiency (chronic) (peripheral) (6) Ulcer of left lower extremity with fat layer exposed Status: Chronic Code(s): L97.922 - Non-pressure chronic ulcer of unspecified part of left lower leg with fat layer exposed (7) Cellulitis of right foot Status: Resolved Code(s): L03.115 - Cellulitis of right lower limb Comment: (8) Delayed wound healing Status: Chronic Code(s): T14.8XXD - Other injury of unspecified body region, subsequent encounter Type of Wound Date of Service: 05/02/20 Chief Complaint: Open surgical wound anterior aspect left BKA stump. Right second toe ulcer with recent and recurrent injury and infection. Right plantar lateral foot ulcer. 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 He also has multiple right foot ulcers and a right leg ulcer, and has been performing dressing changes as advised. He was recently diagnosed with osteomyelitis of right 2 toe as well. He is currently taking Flagyl and was previously also put on Augmentin. He had labs obtained by [facility] and these were reviewed this morning as well. He was also recently diagnosed with C. difficile in which she is taking Flagyl 3 times daily. He denies fever, chills, nausea, vomiting. He denies redness or odor. He uses a motorized scooter. Progress of Wound: Left below-knee amputation with ulcer stable. Worsening status of right second toe ulcer now with osteomyelitis and recent injury noted. improving right foot ulcers (medial and lateral forefoot) - Physical Exam Vital Signs Temp Pulse Resp BP 97.7 F L 57 L 18 165/80 H 05/02/20 11:13 05/02/20 11:13 05/02/20 11:13 05/02/20 12:27 General: Alert, Oriented x3, Cooperative, No apparent distress HEENT: Atraumatic Extremities: No cyanosis, Capillary Refill Less than 3 Seconds, No Calf Tenderness - Negative Keara and Simmons sign right. Left below-knee amputation. Right hallux amputation, Diminished Peripheral Pulses, Edema - Stable bilateral lower extremities Skin: Ulcer/ Wound - His right foot erythema, odor, devitalized tissue is no longer visualized. He does not have any streaking. The second toe ulcer site where the bone biopsy and debridement was performed last week is filling in with granulation tissue however there is still deep probing to this prior joint and bone, - - The other right foot ulcers and left leg ulcer pale granular base with superficial appearance. His skin is atrophic and hairless Wound Measurements and Assessment WC - Nurse 1 - General Ulcer Measurement Start: 04/25/20 11:12 Freq: Status: Active Protocol: Activity Type Activity Date Activity User E-Sign Co-Sign Detail Recorded Client Recorded Date Recorded By Document 05/02/20 11:13 [facility] [id number] 05/02/20 11:23 [facility] 05/02/20 11:13 Wound Center Nurse 1 [Ulcer Assessment] 44-right 3rd toe -Combined with other wound No -Current Size (cm) - Length 0.1 -Current Size (cm) - Width 0.1 -Current Size (cm) - Depth 0.1 -Total Square Cm 0.01 -Epithelialization Large 67-100% -Tunneling No -Undermining/Tunneling No -Circular Undermining No -Exudate Amt None Present -Wound Margin Distinct, Outline Attached -Necrosis Amt Small (1-33%) -Necrotic Tissue Type Eschar -Texture (Susy-wound Skin Appearance) Assessed,Callus ,Scarring -Moisture (Susy-wound Skin Appearance Assessed ) -Color (Susy-wound Skin Appearance) Assessed -Temperature (Susy-wound Skin No Abnormality Appearance) (Pt Warm) -Tenderness on Palpation (Susy-wound No Skin Appearance) -Ulcer Cleansing SOAPY WATER -Foul Odor after Cleansing No -Anesthetic Used 4% Lidocaine Solution 39-right lateral foot -Combined with other wound No -Current Size (cm) - Length 0.9 -Current Size (cm) - Width 0.7 -Current Size (cm) - Depth 0.2 -Total Square Cm 0.63 -Photo Taken No -Epithelialization Small 1-33% -Tunneling No -Undermining/Tunneling No -Circular Undermining No -Exudate Amt Medium -Exudate Type Serosanguineous -Wound Margin Distinct, Outline Attached -Granulation Amt Medium (34-66%) -Granulation Quality Red -Slough/Fibrin Yes -Necrosis Amt Medium (34-66%) -Necrotic Tissue Type Adherent Slough -Texture (Susy-wound Skin Appearance) Assessed, Scarring -Moisture (Susy-wound Skin Appearance Assessed,Dry/ ) Scaly -Color (Susy-wound Skin Appearance) Assessed -Temperature (Susy-wound Skin No Abnormality Appearance) (Pt Warm) -Tenderness on Palpation (Susy-wound No Skin Appearance) -Ulcer Cleansing SOAPY WATER -Foul Odor after Cleansing No -Anesthetic Used 4% Lidocaine Solution #35 L Stump -Combined with other wound No -Current Size (cm) - Length 0.8 -Current Size (cm) - Width 0.3 -Current Size (cm) - Depth 0.3 -Total Square Cm 0.24 -Photo Taken No -Epithelialization None Present -Tunneling No -Undermining/Tunneling No -Circular Undermining No -Exudate Amt Medium -Exudate Type Serosanguineous -Wound Margin Distinct, Outline Attached -Granulation Amt Small (1-33%) -Granulation Quality [place] -Slough/Fibrin Yes -Necrosis Amt Large (67-100%) -Necrotic Tissue Type Adherent Slough -Texture (Susy-wound Skin Appearance) Assessed, Scarring -Moisture (Susy-wound Skin Appearance Assessed, ) Maceration,Dry/ Scaly -Color (Susy-wound Skin Appearance) Assessed -Temperature (Susy-wound Skin No Abnormality Appearance) (Pt Warm) -Tenderness on Palpation (Susy-wound No Skin Appearance) -Ulcer Cleansing SOAPY WATER -Foul Odor after Cleansing No -Anesthetic Used 4% Lidocaine Solution #42- R MEDIAL FOOT -Combined with other wound No -Current Size (cm) - Length 2 -Current Size (cm) - Width 1.5 -Current Size (cm) - Depth 0.2 -Total Square Cm 3.0 -Photo Taken No -Epithelialization Small 1-33% -Tunneling No -Undermining/Tunneling No -Circular Undermining No -Exudate Amt Small -Exudate Type Serosanguineous -Wound Margin Distinct, Outline Attached -Granulation Amt Medium (34-66%) -Granulation Quality Pale,Red -Slough/Fibrin Yes -Necrosis Amt Medium (34-66%) -Necrotic Tissue Type Adherent Slough -Texture (Susy-wound Skin Appearance) Assessed, Scarring -Moisture (Susy-wound Skin Appearance Assessed,Dry/ ) Scaly -Color (Susy-wound Skin Appearance) Assessed -Temperature (Susy-wound Skin No Abnormality Appearance) (Pt Warm) -Tenderness on Palpation (Susy-wound No Skin Appearance) -Ulcer Cleansing SOAPY WATER -Foul Odor after Cleansing No -Anesthetic Used 4% Lidocaine Solution #37-right 2nd toe -Combined with other wound No -Current Size (cm) - Length 1.5 -Current Size (cm) - Width 1.2 -Current Size (cm) - Depth 0.9 -Total Square Cm 1.80 -Photo Taken No -Epithelialization None Present -Tunneling No -Undermining/Tunneling No -Circular Undermining No -Exudate Amt Medium -Exudate Type Serosanguineous -Wound Margin Distinct, Outline Attached -Granulation Amt Medium (34-66%) -Granulation Quality Red -Slough/Fibrin Yes -Necrosis Amt Medium (34-66%) -Necrotic Tissue Type Adherent Slough -Texture (Susy-wound Skin Appearance) Assessed,Callus ,Scarring -Moisture (Susy-wound Skin Appearance Assessed,Dry/ ) Scaly -Color (Susy-wound Skin Appearance) Assessed -Temperature (Susy-wound Skin No Abnormality Appearance) (Pt Warm) -Tenderness on Palpation (Susy-wound No Skin Appearance) -Ulcer Cleansing SOAPY WATER -Foul Odor after Cleansing No -Anesthetic Used 4% Lidocaine Solution WC - Nurse 3 - General Ulcer D/C NN Start: 04/25/20 11:12 Freq: Status: Active Protocol: Activity Type Activity Date Activity User E-Sign Co-Sign Detail Recorded Client Recorded Date Recorded By Document 05/02/20 12:27 RB [id number] 05/02/20 12:29 RB 05/02/20 12:27 Wound Care Nurse 3 [Wound Dressing] 44-right 3rd toe -Ulcer Cleansing Rinsed/ Irrigated with Saline -Other Dressing dakins -Primary Dressing Covered/Secured Dry Gauze,Dry with Gauze & Roll Gauze,Secured with Tape 39-right lateral foot -Other Dressing dakin moistened gauze -Primary Dressing Covered/Secured Dry Gauze,Dry with Gauze & Roll Gauze,Secured with Tape #35 L Stump -Other Dressing daKINS -Primary Dressing Covered/Secured Dry Gauze & with Roll Gauze #42- R MEDIAL FOOT -Other Dressing DAIKINS -Primary Dressing Covered/Secured Dry Gauze with #37-right 2nd toe -Other Dressing DAKINS -Primary Dressing Covered/Secured Dry Gauze with [Compression Applied] Left -Other SINGLE LAYER TUBIGRIP Right -Other CIRCAID [Post Procedure Tolerated] -Treatment Response Procedure Tolerated Well Vital Signs [Blood Pressure] -Blood Pressure (90/60-120/80) 165/80 H -Blood Pressure Mean (mm Hg) 108 -Source Monitor -Position Sitting -Blood Pressure Location Left Arm WC - Visit Discharge [Visit Discharge Information] -Discharge Condition Stable -Ambulatory Status Wheelchair -Transportation Private Auto -Medication Reconcilliation completed No & provided to patient/care provider -Clinical Summary of Care Provided Yes Musculoskeletal: No Tenderness to Palpation of Joints or Extremities, Muscle Wasting Neurological: - - Lack of normal epicritic sensation light touch is consistent with neuropathy status Psych/Mental Status: Normal Affect, Appropriate Debridement Note Post-Debridement Measurements/Treatment - Nurse 2 - General Ulcer CM Notes Start: 04/25/20 11:12 Freq: Status: Active Protocol: Activity Type Activity Date Activity User E-Sign Co-Sign Detail Recorded Client Recorded Date Recorded By Document 04/25/20 11:51 NORRIS [id number] 04/25/20 12:10 NORRIS 04/25/20 11:51 Wound Center Nurse 2 44-right 3rd toe -Time 12:09 -Correct Patient Yes -Correct Side, Site, Position Yes -Correct Procedure Yes -Procedure Performed Yes -Type of Procedure Debridement -Clinical Debridement Subcutaneous -Tissue Removed Subcutaneous -Post Debridement (cm) - Length 1.4 -Post Debridement (cm) - Width 0.8 -Post Debridement (cm) - Depth 0.1 -Total Square (Post) (cm) 1.12 -Area of Debridement (cm) - Length 1.4 -Area of Debridement (cm) - Width 0.8 -Total Square (Area) (cm) 1.12 -Tunneling No -Undermining/Tunneling No -Circular Undermining No -Wound/Ulcer Outcome Not Healed -Ulcer Cleansing Rinsed/ Irrigated with Saline -Foul Odor after Cleansing No -Bioengineered Tissue No -Bleeding Controlled with Pressure -Offloading Yes -Type of Offloading Surgical Shoe -Treatment Response Procedure Tolerated Well -Debridement - Subq, 1st 20sq cm No 39-right lateral foot -Time 11:52 -Correct Patient Yes -Correct Side, Site, Position Yes -Correct Procedure Yes -Procedure Performed Yes -Type of Procedure Debridement -Clinical Debridement Subcutaneous -Tissue Removed Subcutaneous -Post Debridement (cm) - Length 1 -Post Debridement (cm) - Width 1 -Post Debridement (cm) - Depth 0.2 -Total Square (Post) (cm) 1 -Area of Debridement (cm) - Length 1 -Area of Debridement (cm) - Width 1 -Total Square (Area) (cm) 1 -Tunneling No -Undermining/Tunneling No -Circular Undermining No -Wound/Ulcer Outcome Not Healed -Ulcer Cleansing Rinsed/ Irrigated with Saline -Foul Odor after Cleansing No -Bioengineered Tissue No -Bleeding Controlled with Pressure -Offloading Yes -Type of Offloading Surgical Shoe -Treatment Response Procedure Tolerated Well -Debridement - Subq, 1st 20sq cm Yes #35 L Stump -Correct Patient No -Correct Side, Site, Position No -Correct Procedure No -Procedure Performed No -Wound/Ulcer Outcome Not Healed #42- R MEDIAL FOOT -Time 11:51 -Correct Patient Yes -Correct Side, Site, Position Yes -Correct Procedure Yes -Procedure Performed Yes -Type of Procedure Debridement -Clinical Debridement Subcutaneous -Tissue Removed Subcutaneous -Post Debridement (cm) - Length 1.2 -Post Debridement (cm) - Width 2 -Post Debridement (cm) - Depth 0.4 -Total Square (Post) (cm) 2.4 -Area of Debridement (cm) - Length 1.2 -Area of Debridement (cm) - Width 2 -Total Square (Area) (cm) 2.4 -Tunneling No -Undermining/Tunneling No -Circular Undermining No -Wound/Ulcer Outcome Not Healed -Ulcer Cleansing Rinsed/ Irrigated with Saline -Foul Odor after Cleansing No -Bioengineered Tissue No -Bleeding Controlled with Pressure -Offloading Yes -Type of Offloading Surgical Shoe -Treatment Response Procedure Tolerated Well -Debridement - Subq, 1st 20sq cm No #37-right 2nd toe -Time 12:04 -Correct Patient Yes -Correct Side, Site, Position Yes -Correct Procedure Yes -Procedure Performed Yes -Type of Procedure Debridement -Clinical Debridement Bone -Tissue Removed Tendon,Biofilm, Slough,Non- viable tissue -Post Debridement (cm) - Length 2.8 -Post Debridement (cm) - Width 1 -Post Debridement (cm) - Depth 1 -Total Square (Post) (cm) 2.8 -Area of Debridement (cm) - Length 2.8 -Area of Debridement (cm) - Width 1 -Total Square (Area) (cm) 2.8 -Tunneling No -Undermining/Tunneling No -Circular Undermining No -Wound/Ulcer Outcome Not Healed -Ulcer Cleansing Rinsed/ Irrigated with Saline -Foul Odor after Cleansing No -Bioengineered Tissue No -Bleeding Controlled with Pressure -Offloading Yes -Type of Offloading Surgical Shoe -Treatment Response Procedure Tolerated Well -Debridement - Bone, 1st 20sq cm Yes Pain Scale: 0-10 Numeric Is Patient Pain Free? Yes WC - Nurse 3 - General Ulcer D/C NN Start: 04/25/20 11:12 Freq: Status: Active Protocol: Activity Type Activity Date Activity User E-Sign Co-Sign Detail Recorded Client Recorded Date Recorded By Document 04/25/20 12:26 RB [id number] 04/25/20 12:30 RB Document 05/02/20 12:27 RB [id number] 05/02/20 12:29 RB 04/25/20 05/02/20 12:26 12:27 Wound Care Nurse 3 44-right 3rd toe -Ulcer Cleansing Wound Cleanser Rinsed/ Irrigated with Saline -Other Dressing dakins solution dakins -Primary Dressing Covered/Secured with Dry Gauze,Dry Dry Gauze,Dry Gauze & Roll Gauze & Roll Gauze,Secured Gauze,Secured with Tape with Tape 39-right lateral foot -Ulcer Cleansing Wound Cleanser -Other Dressing dakins solution dakin moistened moistened gauze gauze to all wounds -Primary Dressing Covered/Secured with Dry Gauze & Dry Gauze,Dry Roll Gauze, Gauze & Roll Secured with Gauze,Secured Tape with Tape #35 L Stump -Ulcer Cleansing Wound Cleanser -Other Dressing dakins daKINS moistened gauzze -Primary Dressing Covered/Secured with Dry Gauze,Dry Dry Gauze & Gauze & Roll Roll Gauze Gauze,Secured with Tape #42- R MEDIAL FOOT -Ulcer Cleansing Wound Cleanser -Other Dressing dakin moistened DAIKINS gauze -Primary Dressing Covered/Secured with Dry Gauze & Dry Gauze Roll Gauze, Secured with Tape #37-right 2nd toe -Ulcer Cleansing Wound Cleanser -Other Dressing dakin moistened DAKINS gauze -Primary Dressing Covered/Secured with Dry Gauze & Dry Gauze Roll Gauze, Secured with Tape Left -Other single tubigrip SINGLE LAYER to stump TUBIGRIP Right -Other rachael wrap CIRCAID Treatment Response Procedure Procedure Tolerated Well Tolerated Well Vital Signs Blood Pressure (90/60-120/80) 160/70 H 165/80 H Blood Pressure Mean (mm Hg) 100 108 Source Monitor Monitor Position Sitting Sitting Blood Pressure Location Right Arm Left Arm Pain Scale: 0-10 Numeric Is Patient Pain Free? Yes Teaching: Wound Center Offload: Mattress, Cushion, Reposition -Person Taught Patient -Teaching Method Discussion -Response to teaching Verbalize understanding WC - Visit Discharge Discharge Condition Stable Stable Ambulatory Status Wheelchair Wheelchair Transportation Private Auto Private Auto Medication Reconcilliation completed & No No provided to patient/care provider Clinical Summary of Care Provided Yes Yes Wound debrided: 2nd toe Laterality: Right Wound Grade/Stage: grade 3 Type of Debridement: Excisional debridement Anesthesia Used: 5% Lidocaine Gel Depth: in the subcutaneous layer Percentage of wound debrided: 100 Instrument Used: #15 blade Tissue Removed: fibrous, devitalized subcutaneuos, biofilm, slough Severity: Fat Layer Exposed Amount of bleeding with debridement: Mild Bleeding Controlled with: Pressure Patient tolerated procedure well - Additional Wound Wound debrided: plantar lateral and medial forefoot Laterality: Right Wound Grade/Stage: grade 1 Type of Debridement: Excisional debridement Anesthesia Used: 5% Lidocaine Gel Depth: in the subcutaneous layer Percentage of wound debrided: 100 Instrument Used: #15 blade Tissue Removed: fibrous, devitalized subcutaneuos, biofilm, slough Severity: Fat Layer Exposed Amount of bleeding with debridement: Mild Bleeding Controlled with: Pressure Patient tolerated procedure: Patient tolerated procedure well - Additional Wound Wound debrided: anterior BKA stump site Laterality: Left Wound Grade/Stage: grade 1 Type of Debridement: Excisional debridement Anesthesia Used: 5% Lidocaine Gel Depth: in the subcutaneous layer Percentage of wound debrided: 100 Instrument Used: #15 blade Tissue Removed: fibrous, devitalized subcutaneuos, biofilm, slough Severity: Fat Layer Exposed Amount of bleeding with debridement: Mild Bleeding Controlled with: Pressure Patient tolerated procedure: Patient tolerated procedure well Assessment/Plan Active Problems Ulcer of right lower extremity with fat layer exposed (Chronic) Ulcer of right foot with necrosis of bone (Acute) Osteomyelitis of right foot (Acute) right second toe Delayed wound healing (Chronic) Lymphedema (Chronic) Venous insufficiency (Chronic) Ulcer of left lower extremity with fat layer exposed (Chronic) Assessment: Open surgical wound anterior aspect left BKA stump. second toe ulcer, status change with exposed discolored bone (osteomyelitis; jerez grade 3). Right plantar lateral forefoot ulcer, jerez grade 1, no infection. Right plantar medial forefoot ulcer, jerez grade 1, no infection. Peripheral vascular disease. Diabetes with neuropathy. history of acute kidney injury. ambulation difficulty with left amputation and debility. Plan: I reviewed and discussed his case. His ulcer for debrided is on the clinical panel to the right foot and left leg in a subcutaneous excisional manner. He was recently diagnosed with osteomyelitis of the right second toe which is consistent firmed with pathology and microbiology bone biopsies. To change all ulcer sites daily with Dakin wet-to-dry dressings. Back to continue to wash daily with soap and water. He was initially started on Augmentin and Flagyl was added this week. His microbiology bone growth was reviewed with the following: pseudomonas, strep, corynebacterium striatum, and anaerobic cocci. I briefly reviewed the case with infection physician, Dr. Bartlett. Cefepime and Flagyl would likely cover his growth better. A referral was arranged for over the phone tomorrow at 14:30. It is also noted he has C. difficile at this time. Labs from [facility] on 04-30-20 were also reviewed as the following: wbc 5.61, Cr 1.71, GFR 41, albumin 1.9, crp 16.1, ESR 89. It is also noted he has a prior history of multidrug resistance and antibiotic allergies. It is noted he had a prior penicillin allergy documented and he relates he has taken Augmentin previously without issues. He also had an IV penicillin-based drug administered while entering a previous hospital visit and it was determined at that time that he does not have a true penicillin allergy. I also initially recommended amputation of the involved toe and he refused at this time. He has had prior amputations with significant delays in healing that is exacerbated by his swelling and other factors. He would like to proceed forward with antibiotic treatment at this time. The benefits and risks of amputation versus antibiotics were reviewed in detail. His prior foot x-rays did not have soft tissue emphysema but there was disintegration of the distal second toe and his injury and now concern of infection site. He was advised to keep pressure off of the ulcer sites and a surgical shoe with heel weightbearing. To ambulate with his potential surgical shoe in place if able to as he presents today in automated wheelchair. To continue to optimize healing with improved glycemic index, continued weight reduction, and well-balanced [employer] nutrients. His hemoglobin A1c is significantly improved to 6.9%. To continue with edema management including his compression wraps and also lymphedema pumps. To return to clinic in 1 week or to call sooner if you have any questions or concerns. If his local signs of infection or status worsens or he develops systemic signs of illness he was advised to call the office immediately or present to the emergency room. The problems addressed require a moderate decision making level which includes one or more chronic illnesses (w/ exacerbation, progression, or side effects), two or more stable chronic illnesses, one undiagnosed new problem w/ uncertain prognosis, one acute illness with systemic symptoms. The medical decision making level is moderate. There is noted moderate risk of morbidity after considering this treatment plan and diagnostic data. Considerations were given to prescription management, decisions regarding surgical options, or social determinants of health. Note: [employer] speech recognition machine assembler software was used to create portions of this document. Sound-alike and misspelled words, as well as other machine assembler errors may be contained in the documentation. . [employer] 2020. Reviewed today: Medication and aller gies were reviewed and reconciled. His BP today was 165/80. His blood pressure is elevated over 120/80. To follow-up with primary care physician. Diet and activity adjustments were discussed to optimize overall health and to promote better wound healing. Reviewed 04-04-2020: It is noted he has not a current tobacco user. He was a former smoker. His CODE STATUS was confirmed as a full code.
== END 2020-05-13 23:59 ==
LOC: WC 11:00
PROVIDERS: PCP Family Medicine; Visit Provider Surgery
DX: E11.621 Type 2 diabetes mellitus with foot ulcer (principal); L03.115 Cellulitis of right lower limb; L97.512 Non-pressure chronic ulcer of other part of right foot with fat layer exposed; I89.0 Lymphedema, not elsewhere classified; E11.51 Type 2 diabetes mellitus with diabetic peripheral angiopathy without gangrene; E11.40 Type 2 diabetes mellitus with diabetic neuropathy, unspecified; B96.5 Pseudomonas (aeruginosa) (mallei) (pseudomallei) as the cause of diseases classified elsewhere; B95.4 Other streptococcus as the cause of diseases classified elsewhere; Z87.891 Personal history of nicotine dependence; T87.89 Other complications of amputation stump; Y83.8 Other surgical procedures as the cause of abnormal reaction of the patient, or of later complication, without mention of misadventure at the time of the procedure; L97.822 Non-pressure chronic ulcer of other part of left lower leg with fat layer exposed; E11.69 Type 2 diabetes mellitus with other specified complication; M86.8X7 Other osteomyelitis, ankle and foot
CPT/HCPCS: 11042; 11044; 87015; 87070; 87075; 87077; 87101; 87116; 87176; 87186; 87205; 87206; 88307; 88311

== ENCOUNTER 2020-05-09 10:40 | Outpatient (CLI) | payer MEDICARE, MEDICAID, SELFPAY ==
[2020-05-09 11:11] VITALS: BP 190/70; PULSE 70; RESP 18; TEMP 36.6; BMI 42.7
[2020-05-09 12:00] VITALS: BP 202/68; PULSE 84; RESP 16; O2SAT 100; BMI 43.2
[2020-05-09 12:17] VITALS: BP 195/60; PULSE 63; RESP 16; TEMP 36; O2SAT 98; BMI 43.2
[2020-05-09] MEDS: 0.9% NaCl IVPB Med Flush (250 mL) 15 ML IV (12:31)
[2020-05-09] MEDS: 0.9% NaCl PICC Flush IV ×2 (12:31→13:24)
[2020-05-09 13:28] VITALS: BP 188/60; PULSE 63; RESP 16; TEMP 36.3; O2SAT 98
== END 2020-05-09 16:55 | disposition home or self-care (01) ==
LOC: RAD 10:43 → MEDOUTP 12:17
PROVIDERS: PCP Family Medicine; Referring Provider Internal Medicine Infectious Disease; Visit Provider Internal Medicine Infectious Disease
DX: M86.9 Osteomyelitis, unspecified (principal)
CPT/HCPCS: 96365; 36569; J7050; A4216

== ENCOUNTER 2020-06-13 11:00 | Outpatient (RCR) | payer MEDICARE, MEDICAID, SELFPAY ==
[2020-05-14 00:16] VITALS: BP 165/80; PULSE 57; RESP 18; TEMP 36.5
[2020-05-16 14:09] VITALS: BP 177/60; PULSE 49; RESP 18; TEMP 36.9; BMI 43.2
--- NOTE | 2020-05-16 14:25 | PCM.PN.ID ---
Subjective: Feeling ok, diarrhea resolved. Some joint aches. No issues with picc. Some headache. No fever. - Physical Exam Vitals/I&O's: Vital Signs Temp Pulse Resp BP 97.7 F L 57 L 18 165/80 H 05/14/20 00:16 05/14/20 00:16 05/14/20 00:16 05/14/20 00:16 Body Mass Index (BMI) 43.2 Finger Stick Blood Glucose 169 General: Alert, Cooperative, No apparent distress Lungs: Clear to auscultation, Normal air movement Cardiovascular: Regular rate, Regular Rhythm Abdomen: Soft, Non Tender, Non-Distended Extremities: Edema Skin: Ulcer/ Wound - R foot ulcer, dry, no redness Medical Necessity - Tobacco Use Smoking Status: Former smoker Route of nutrition/ use of supplements: [] Nutritional Intake: [] IV Site: [] Hernandez Catheter: [] - Assessment/Plan Antibiotics: [] Assessment/Plan: [] R 2nd toe osteo - on iv cefepime and po flagyl for total 6 week course. Wound cx with PsA, GBS, corynebacteria, and anaerobes. Reviewed labs. Cdiff diarrhea resolved. Will follow, return to clinic in 3 weeks, d/w Dr. Hernández.
--- NOTE | 2020-05-16 16:00 | PN.PCM_ITS ---
(1) Ulcer of left lower extremity with fat layer exposed Status: Chronic Code(s): L97.922 - Non-pressure chronic ulcer of unspecified part of left lower leg with fat layer exposed (2) Ulcer of right lower extremity with fat layer exposed Status: Chronic Code(s): L97.912 - Non-pressure chronic ulcer of unspecified part of right lower leg with fat layer exposed (3) Delayed wound healing Status: Chronic Code(s): T14.8XXD - Other injury of unspecified body region, subsequent encounter (4) Venous insufficiency Status: Chronic Code(s): I87.2 - Venous insufficiency (chronic) (peripheral) (5) Type 2 diabetes mellitus with diabetic polyneuropathy Status: Chronic Qualifiers: Code(s): E11.42 - Type 2 diabetes mellitus with diabetic polyneuropathy (6) Diabetes mellitus with polyneuropathy Status: Chronic Qualifiers: Code(s): E11.42 - Type 2 diabetes mellitus with diabetic polyneuropathy (7) Osteomyelitis of foot Status: Chronic Qualifiers: Laterality: right Code(s): M86.9 - Osteomyelitis, unspecified Type of Wound Date of Service: 05/16/20 Chief Complaint: Open surgical wound anterior aspect left BKA stump. Right second toe ulcer with recent and recurrent injury and infection. Right plantar lateral foot ulcer. 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 He also has multiple right foot ulcers and a right leg ulcer, and has been performing dressing changes as advised. He was diagnosed with osteomyelitis of right 2 toe as well. his diarrhea resolved. He is on iv cefepime and flagyl for treatment of osteomyelitis and saw Dr. Bartlett today as well. Progress of Wound: all stable - Physical Exam Vital Signs Temp Pulse Resp BP 98.4 F 49 L 18 177/60 H 05/16/20 14:09 05/16/20 14:09 05/16/20 14:05/16/20 14:09 General: Alert, Oriented x3, Cooperative, No apparent distress HEENT: Atraumatic Extremities: No cyanosis, Capillary Refill Less than 3 Seconds, No Calf Tenderness, Diminished Peripheral Pulses, Edema, - - left below knee amputation Skin: Ulcer/ Wound - no purulence, erythema, streaking, odor, infection. adjacent skin is hairless and atrophic bilateral. no exposed bone right foot Wound Measurements and Assessment WC - Nurse 1 - General Ulcer Measurement Start: 05/16/20 14:06 Freq: Status: Active Protocol: Activity Type Activity Date Activity User E-Sign Co-Sign Detail Recorded Client Recorded Date Recorded By Document 05/16/20 14:09 [facility] [id number] 05/16/20 14:26 [facility] 05/16/20 14:09 Wound Center Nurse 1 [Ulcer Assessment] 44-right 3rd toe -Combined with other wound No -Current Size (cm) - Length 0.1 -Current Size (cm) - Width 0.1 -Current Size (cm) - Depth 0.1 -Total Square Cm 0.01 -Photo Taken No -Epithelialization None Present -Tunneling No -Undermining/Tunneling No -Circular Undermining No -Exudate Amt None Present -Wound Margin Distinct, Outline Attached -Necrosis Amt Large (67-100%) -Necrotic Tissue Type Eschar -Texture (Susy-wound Skin Appearance) Assessed,Callus ,Scarring -Moisture (Susy-wound Skin Appearance Assessed,Dry/ ) Scaly -Color (Susy-wound Skin Appearance) Assessed -Temperature (Susy-wound Skin No Abnormality Appearance) (Pt Warm) -Tenderness on Palpation (Susy-wound No Skin Appearance) -Ulcer Cleansing Wound Cleanser -Foul Odor after Cleansing No -Anesthetic Used 4% Lidocaine Solution 39-right lateral foot -Combined with other wound No -Current Size (cm) - Length 0.8 -Current Size (cm) - Width 0.8 -Current Size (cm) - Depth 0.2 -Total Square Cm 0.64 -Photo Taken No -Epithelialization Medium 34-66% -Tunneling No -Undermining/Tunneling No -Circular Undermining No -Exudate Amt Small -Exudate Type Serosanguineous -Wound Margin Distinct, Outline Attached -Granulation Amt Large (67-100%) -Granulation Quality [place] -Slough/Fibrin Yes -Necrosis Amt Small (1-33%) -Necrotic Tissue Type Adherent Slough -Texture (Susy-wound Skin Appearance) Assessed, Scarring -Moisture (Susy-wound Skin Appearance Assessed,Dry/ ) Scaly -Color (Susy-wound Skin Appearance) Assessed -Temperature (Susy-wound Skin No Abnormality Appearance) (Pt Warm) -Tenderness on Palpation (Susy-wound No Skin Appearance) -Ulcer Cleansing Wound Cleanser -Foul Odor after Cleansing No -Anesthetic Used 4% Lidocaine Solution #35 L Stump -Combined with other wound No -Current Size (cm) - Length 0.9 -Current Size (cm) - Width 1.5 -Current Size (cm) - Depth 0.4 -Total Square Cm 1.35 -Photo Taken No -Epithelialization None Present -Tunneling No -Undermining/Tunneling No -Circular Undermining No -Exudate Amt Medium -Exudate Type Serosanguineous -Wound Margin Distinct, Outline Attached -Granulation Amt Large (67-100%) -Granulation Quality [place] -Slough/Fibrin Yes -Necrosis Amt Small (1-33%) -Necrotic Tissue Type Adherent Slough -Texture (Susy-wound Skin Appearance) Assessed, Scarring -Moisture (Susy-wound Skin Appearance Assessed,Dry/ ) Scaly -Color (Susy-wound Skin Appearance) Assessed -Temperature (Susy-wound Skin No Abnormality Appearance) (Pt Warm) -Tenderness on Palpation (Susy-wound No Skin Appearance) -Ulcer Cleansing Wound Cleanser -Foul Odor after Cleansing No -Anesthetic Used 4% Lidocaine Solution #42- R MEDIAL FOOT -Combined with other wound No -Current Size (cm) - Length 1.5 -Current Size (cm) - Width 2.3 -Current Size (cm) - Depth 0.1 -Total Square Cm 3.45 -Photo Taken No -Epithelialization None Present -Tunneling No -Undermining/Tunneling No -Circular Undermining No -Exudate Amt Medium -Exudate Type Serosanguineous -Wound Margin Distinct, Outline Attached -Granulation Amt Small (1-33%) -Granulation Quality Red -Slough/Fibrin Yes -Necrosis Amt Large (67-100%) -Necrotic Tissue Type Adherent Slough -Texture (Susy-wound Skin Appearance) Assessed, Scarring -Moisture (Susy-wound Skin Appearance Assessed, ) Maceration,Dry/ Scaly -Color (Susy-wound Skin Appearance) Assessed -Temperature (Susy-wound Skin No Abnormality Appearance) (Pt Warm) -Tenderness on Palpation (Susy-wound No Skin Appearance) -Ulcer Cleansing Wound Cleanser -Foul Odor after Cleansing No -Anesthetic Used 4% Lidocaine Solution #37-right 2nd toe -Combined with other wound No -Current Size (cm) - Length 1 -Current Size (cm) - Width 0.5 -Current Size (cm) - Depth 0.4 -Total Square Cm 0.5 -Photo Taken No -Epithelialization None Present -Tunneling No -Undermining/Tunneling No -Circular Undermining No -Exudate Amt Medium -Exudate Type Serosanguineous -Wound Margin Distinct, Outline Attached -Granulation Amt Small (1-33%) -Granulation Quality Red -Slough/Fibrin Yes -Necrosis Amt Large (67-100%) -Necrotic Tissue Type Adherent Slough -Texture (Susy-wound Skin Appearance) Assessed, Scarring -Moisture (Susy-wound Skin Appearance Assessed, ) Maceration,Dry/ Scaly -Color (Susy-wound Skin Appearance) Assessed,[place] -Temperature (Susy-wound Skin No Abnormality Appearance) (Pt Warm) -Tenderness on Palpation (Susy-wound No Skin Appearance) -Ulcer Cleansing Wound Cleanser -Foul Odor after Cleansing No -Anesthetic Used 4% Lidocaine Solution [Edema Assessment] -Lower Limb Edema Present Yes -Right Calf (cm) 44 -Right Ankle (cm) 28.1 WC - Nurse 2 - General Ulcer CM Notes Start: 05/16/20 14:06 Freq: Status: Active Protocol: Activity Type Activity Date Activity User E-Sign Co-Sign Detail Recorded Client Recorded Date Recorded By Document 05/16/20 14:32 NORRIS [id number] 05/16/20 14:38 NORRIS 05/16/20 14:32 Wound Center Nurse 2 [Procedure/Treatment] 44-right 3rd toe -Time 14:34 -Correct Patient Yes -Correct Side, Site, Position Yes -Correct Procedure Yes -Procedure Performed Yes -Type of Procedure Debridement -Clinical Debridement Subcutaneous -Tissue Removed Subcutaneous -Post Debridement (cm) - Length 0.2 -Post Debridement (cm) - Width 0.1 -Post Debridement (cm) - Depth 0.1 -Total Square (Post) (cm) 0.02 -Area of Debridement (cm) - Length 0.2 -Area of Debridement (cm) - Width 0.1 -Total Square (Area) (cm) 0.02 -Tunneling No -Undermining/Tunneling No -Circular Undermining No -Wound/Ulcer Outcome Not Healed -Ulcer Cleansing Rinsed/ Irrigated with Saline -Foul Odor after Cleansing No -Bioengineered Tissue No -Bleeding Controlled with Pressure -Offloading Yes -Type of Offloading Surgical Shoe -Treatment Response Procedure Tolerated Well -Debridement - Subq, 1st 20sq cm Yes 39-right lateral foot -Time 14:34 -Correct Patient Yes -Correct Side, Site, Position Yes -Correct Procedure Yes -Procedure Performed Yes -Type of Procedure Debridement -Clinical Debridement Subcutaneous -Tissue Removed Subcutaneous -Post Debridement (cm) - Length 0.9 -Post Debridement (cm) - Width 0.9 -Post Debridement (cm) - Depth 0.2 -Total Square (Post) (cm) 0.81 -Area of Debridement (cm) - Length 0.9 -Area of Debridement (cm) - Width 0.9 -Total Square (Area) (cm) 0.81 -Tunneling No -Undermining/Tunneling No -Circular Undermining No -Wound/Ulcer Outcome Not Healed -Ulcer Cleansing Rinsed/ Irrigated with Saline -Foul Odor after Cleansing No -Bioengineered Tissue No -Bleeding Controlled with Pressure -Offloading Yes -Type of Offloading Surgical Shoe -Treatment Response Procedure Tolerated Well -Debridement - Subq, 20sq cm No #35 L Stump -Time 14:34 -Correct Patient Yes -Correct Side, Site, Position Yes -Correct Procedure Yes -Procedure Performed Yes -Type of Procedure Debridement -Clinical Debridement Subcutaneous -Tissue Removed Subcutaneous -Post Debridement (cm) - Length 1 -Post Debridement (cm) - Width 1.5 -Post Debridement (cm) - Depth 0.4 -Total Square (Post) (cm) 1.5 -Area of Debridement (cm) - Length 1 -Area of Debridement (cm) - Width 1.5 -Total Square (Area) (cm) 1.5 -Tunneling No -Undermining/Tunneling No -Circular Undermining No -Wound/Ulcer Outcome Healed- Surgical Closure -Foul Odor after Cleansing No -Bioengineered Tissue No -Bleeding Controlled with Pressure -Offloading No -Treatment Response Procedure Tolerated Well -Debridement - Subq, 1st 20sq cm No #42- R MEDIAL FOOT -Time 14:35 -Correct Patient Yes -Correct Side, Site, Position Yes -Correct Procedure Yes -Procedure Performed Yes -Type of Procedure Debridement -Clinical Debridement Subcutaneous -Tissue Removed Subcutaneous -Post Debridement (cm) - Length 1.5 -Post Debridement (cm) - Width 2.4 -Post Debridement (cm) - Depth 0.1 -Total Square (Post) (cm) 3.60 -Area of Debridement (cm) - Length 1.5 -Area of Debridement (cm) - Width 2.4 -Total Square (Area) (cm) 3.60 -Tunneling No -Undermining/Tunneling No -Circular Undermining No -Wound/Ulcer Outcome Not Healed -Ulcer Cleansing Rinsed/ Irrigated with Saline -Foul Odor after Cleansing No -Bioengineered Tissue No -Bleeding Controlled with Pressure -Offloading Yes -Type of Offloading Surgical Shoe -Treatment Response Procedure Tolerated Well -Debridement - Subq, 1st 20sq cm No #37-right 2nd toe -Time 14:35 -Correct Patient Yes -Correct Side, Site, Position Yes -Correct Procedure Yes -Procedure Performed Yes -Type of Procedure Debridement -Clinical Debridement Subcutaneous -Tissue Removed Subcutaneous -Post Debridement (cm) - Length 1 -Post Debridement (cm) - Width 0.6 -Post Debridement (cm) - Depth 0.4 -Total Square (Post) (cm) 0.6 -Area of Debridement (cm) - Length 1.6 -Area of Debridement (cm) - Width 0.6 -Total Square (Area) (cm) 0.96 -Tunneling No -Undermining/Tunneling No -Circular Undermining No -Wound/Ulcer Outcome Not Healed -Ulcer Cleansing Rinsed/ Irrigated with Saline -Foul Odor after Cleansing No -Bioengineered Tissue No -Bleeding Controlled with Pressure -Offloading Yes -Type of Offloading Surgical Shoe -Treatment Response Procedure Tolerated Well -Debridement - Subq, 1st 20sq cm No [See Physician Procedure note for Specifics] Pain Scale: 0-10 Numeric [Pain] -Is Patient Pain Free? Yes Musculoskeletal: No Tenderness to Palpation of Joints or Extremities, Muscle Wasting Neurological: - - lack of normal epicritic sensation via light touch Psych/Mental Status: Normal Affect, Appropriate Debridement Note Post-Debridement Measurements/Treatment WC - Nurse 2 - General Ulcer CM Notes Start: 05/16/20 14:06 Freq: Status: Active Protocol: Activity Type Activity Date Activity User E-Sign Co-Sign Detail Recorded Client Recorded Date Recorded By Document 05/16/20 14:32 NORRIS [id number] 05/16/20 14:38 NORRIS 05/16/20 14:32 Wound Center Nurse 2 44-right 3rd toe -Time 14:34 -Correct Patient Yes -Correct Side, Site, Position Yes -Correct Procedure Yes -Procedure Performed Yes -Type of Procedure Debridement -Clinical Debridement Subcutaneous -Tissue Removed Subcutaneous -Post Debridement (cm) - Length 0.2 -Post Debridement (cm) - Width 0.1 -Post Debridement (cm) - Depth 0.1 -Total Square (Post) (cm) 0.02 -Area of Debridement (cm) - Length 0.2 -Area of Debridement (cm) - Width 0.1 -Total Square (Area) (cm) 0.02 -Tunneling No -Undermining/Tunneling No -Circular Undermining No -Wound/Ulcer Outcome Not Healed -Ulcer Cleansing Rinsed/ Irrigated with Saline -Foul Odor after Cleansing No -Bioengineered Tissue No -Bleeding Controlled with Pressure -Offloading Yes -Type of Offloading Surgical Shoe -Treatment Response Procedure Tolerated Well -Debridement - Subq, 1st 20sq cm Yes 39-right lateral foot -Time 14:34 -Correct Patient Yes -Correct Side, Site, Position Yes -Correct Procedure Yes -Procedure Performed Yes -Type of Procedure Debridement -Clinical Debridement Subcutaneous -Tissue Removed Subcutaneous -Post Debridement (cm) - Length 0.9 -Post Debridement (cm) - Width 0.9 -Post Debridement (cm) - Depth 0.2 -Total Square (Post) (cm) 0.81 -Area of Debridement (cm) - Length 0.9 -Area of Debridement (cm) - Width 0.9 -Total Square (Area) (cm) 0.81 -Tunneling No -Undermining/Tunneling No -Circular Undermining No -Wound/Ulcer Outcome Not Healed -Ulcer Cleansing Rinsed/ Irrigated with Saline -Foul Odor after Cleansing No -Bioengineered Tissue No -Bleeding Controlled with Pressure -Offloading Yes -Type of Offloading Surgical Shoe -Treatment Response Procedure Tolerated Well -Debridement - Subq, 1st 20sq cm No #35 L Stump -Time 14:34 -Correct Patient Yes -Correct Side, Site, Position Yes -Correct Procedure Yes -Procedure Performed Yes -Type of Procedure Debridement -Clinical Debridement Subcutaneous -Tissue Removed Subcutaneous -Post Debridement (cm) - Length 1 -Post Debridement (cm) - Width 1.5 -Post Debridement (cm) - Depth 0.4 -Total Square (Post) (cm) 1.5 -Area of Debridement (cm) - Length 1 -Area of Debridement (cm) - Width 1.5 -Total Square (Area) (cm) 1.5 -Tunneling No -Undermining/Tunneling No -Circular Undermining No -Wound/Ulcer Outcome Healed- Surgical Closure -Foul Odor after Cleansing No -Bioengineered Tissue No -Bleeding Controlled with Pressure -Offloading No -Treatment Response Procedure Tolerated Well -Debridement - Subq, 1st 20sq cm No #42- R MEDIAL FOOT -Time 14:35 -Correct Patient Yes -Correct Side, Site, Position Yes -Correct Procedure Yes -Procedure Performed Yes -Type of Procedure Debridement -Clinical Debridement Subcutaneous -Tissue Removed Subcutaneous -Post Debridement (cm) - Length 1.5 -Post Debridement (cm) - Width 2.4 -Post Debridement (cm) - Depth 0.1 -Total Square (Post) (cm) 3.60 -Area of Debridement (cm) - Length 1.5 -Area of Debridement (cm) - Width 2.4 -Total Square (Area) (cm) 3.60 -Tunneling No -Undermining/Tunneling No -Circular Undermining No -Wound/Ulcer Outcome Not Healed -Ulcer Cleansing Rinsed/ Irrigated with Saline -Foul Odor after Cleansing No -Bioengineered Tissue No -Bleeding Controlled with Pressure -Offloading Yes -Type of Offloading Surgical Shoe -Treatment Response Procedure Tolerated Well -Debridement - Subq, 20sq cm No #37-right 2nd toe -Time 14:35 -Correct Patient Yes -Correct Side, Site, Position Yes -Correct Procedure Yes -Procedure Performed Yes -Type of Procedure Debridement -Clinical Debridement Subcutaneous -Tissue Removed Subcutaneous -Post Debridement (cm) - Length 1 -Post Debridement (cm) - Width 0.6 -Post Debridement (cm) - Depth 0.4 -Total Square (Post) (cm) 0.6 -Area of Debridement (cm) - Length 1.6 -Area of Debridement (cm) - Width 0.6 -Total Square (Area) (cm) 0.96 -Tunneling No -Undermining/Tunneling No -Circular Undermining No -Wound/Ulcer Outcome Not Healed -Ulcer Cleansing Rinsed/ Irrigated with Saline -Foul Odor after Cleansing No -Bioengineered Tissue No -Bleeding Controlled with Pressure -Offloading Yes -Type of Offloading Surgical Shoe -Treatment Response Procedure Tolerated Well -Debridement - Subq, 1st 20sq cm No Pain Scale: 0-10 Numeric Is Patient Pain Free? Yes Wound debrided: dorsal 2 toe Laterality: Right Wound Grade/Stage: grade 3 Type of Debridement: Excisional debridement Anesthesia Used: 5% Lidocaine Gel Depth: in the subcutaneous layer Percentage of wound debrided: 100 Instrument Used: #15 blade Tissue Removed: fibrous, devitalized subcutaneous, biofilm, slough Severity: Fat Layer Exposed Amount of bleeding with debridement: Mild Bleeding Controlled with: Pressure Patient tolerated procedure well - Additional Wound Wound debrided: distal 3rd toe, lateral plantar right foot, medial forefoot Laterality: Right Wound Grade/Stage: grade 1 Type of Debridement: Excisional debridement Anesthesia Used: 5% Lidocaine Gel Depth: in the subcutaneous layer Percentage of wound debrided: 100 Instrument Used: #15 blade Tissue Removed: fibrous, devitalized subcutaneous, biofilm, slough Severity: Fat Layer Exposed Amount of bleeding with debridement: Mild Bleeding Controlled with: Pressure Patient tolerated procedure: Patient tolerated procedure well - Additional Wound Wound debrided: anterior below knee stump application Laterality: Left Wound Grade/Stage: grade 1 Type of Debridement: Excisional debridement Anesthesia Used: 4% Lidocaine Solution Depth: in the subcutaneous layer Percentage of wound debrided: 100 Instrument Used: #15 blade Tissue Removed: fibrous, devitalized subcutaneous, biofilm, slough Severity: Fat Layer Exposed Amount of bleeding with debridement: Mild Bleeding Controlled with: Pressure Patient tolerated procedure: Patient tolerated procedure well Assessment/Plan Active Problems Ulcer of right lower extremity with fat layer exposed (Chronic) Delayed wound healing (Chronic) Venous insufficiency (Chronic) Type 2 diabetes mellitus with diabetic polyneuropathy (Chronic) Ulcer of left lower extremity with fat layer exposed (Chronic) Diabetes mellitus with polyneuropathy (Chronic) Osteomyelitis of foot (Chronic) Assessment: Open surgical wound anterior aspect left BKA stump. second toe ulcer, status change with exposed discolored bone (osteomyelitis; jerez grade 3). Right plantar lateral forefoot ulcer, jerez grade 1, no infection. Right plantar medial forefoot ulcer, jerez grade 1, no infection. Peripheral vascular disease. Diabetes with neuropathy. history of acute kidney injury. ambulation difficulty with left amputation and debility. Plan: I reviewed and discussed his case. His ulcer for debrided is on the clinical panel to the right foot and left leg in a subcutaneous excisional manner. He was recently diagnosed with osteomyelitis of the right second toe which is consistent firmed with pathology and microbiology bone biopsies. To continue on IV cefepime and oral flagyl for full 6 week treatment of osteo with infectious disease. Seen today and appreciated. To change all ulcer sites daily with Dakin wet-to-dry dressings. His microbiology bone growth was reviewed with the following: pseudomonas, strep, corynebacterium striatum, and anaerobic cocci. His c-diff symptoms have also resolved. Labs from [facility] on 04-30-20 were also reviewed as the following: wbc 5.61, Cr 1.71, GFR 41, albumin 1.9, crp 16.1, ESR 89. His prior foot x-rays did not have soft tissue emphysema but there was disintegration of the distal second toe and his injury and now concern of infection site. He was advised to keep pressure off of the ulcer sites and a surgical shoe with heel weightbearing. To ambulate with his potential surgical shoe in place if able to as he presents today in automated wheelchair. To continue to optimize healing with improved glycemic index, continued weight reduction, and well-balanced [employer] nutrients. His hemoglobin A1c is significantly improved to 6.9%. To continue with edema management including his compression wraps and also lymphedema pumps. To return to clinic in 1 week or to call sooner if you have any questions or concerns. If his local signs of infection or status worsens or he develops systemic signs of illness he was advised to call the office immediately or present to the emergency room. RTC next week.
[2020-05-23 11:11] VITALS: BP 159/61; PULSE 52; RESP 22; TEMP 36; BMI 43.2
--- NOTE | 2020-05-23 12:04 | PCM.WC.PN ---
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 Code(s): L97.514 - Non-pressure chronic ulcer of other part of right foot with necrosis of bone (3) Ulcer of left lower extremity with fat layer exposed Status: Chronic Code(s): L97.922 - Non-pressure chronic ulcer of unspecified part of left lower leg with fat layer exposed (4) Delayed wound healing Status: Chronic Code(s): T14.8XXD - Other injury of unspecified body region, subsequent encounter (5) Venous insufficiency Status: Chronic Code(s): I87.2 - Venous insufficiency (chronic) (peripheral) (6) Type 2 diabetes mellitus with diabetic polyneuropathy Status: Chronic Qualifiers: Code(s): E11.42 - Type 2 diabetes mellitus with diabetic polyneuropathy (7) Diabetes mellitus with polyneuropathy Status: Chronic Qualifiers: Code(s): E11.42 - Type 2 diabetes mellitus with diabetic polyneuropathy (8) Osteomyelitis of foot Status: Chronic Qualifiers: Laterality: right Code(s): M86.9 - Osteomyelitis, unspecified Type of Wound Date of Service: 05/23/20 Chief Complaint: Open surgical wound anterior aspect left BKA stump. Right second toe ulcer with recent and recurrent injury and infection. Right distal third toe ulcer. Right plantar lateral foot ulcer. 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 He also has multiple right foot ulcers and a right leg ulcer, and has been performing dressing changes as advised. He was diagnosed with osteomyelitis of right second toe as well. His diarrhea has resolved. How now reports he has constipation and takes Miralax. He is on iv cefepime and flagyl for treatment of osteomyelitis and saw Dr. Bartlett today as well. Progress of Wound: Improving - Physical Exam Vital Signs Temp Pulse Resp BP 96.8 F L 52 L 22 H 159/61 H 05/23/20 11:11 05/23/20 11:11 05/23/20 11:11 05/23/20 11:11 General: Alert, Oriented x3, Cooperative, No apparent distress Extremities: No cyanosis, Capillary Refill Less than 3 Seconds, No Calf Tenderness, Diminished Peripheral Pulses, Edema Skin: Ulcer/ Wound - Bilateral lower extremity: no purulence, erythema, string, odor, infection. Peripheral skin is hairless and atrophic with reduced skin peeling Wound Measurements and Assessment WC - Nurse 1 - General Ulcer Measurement Start: 05/16/20 14:06 Freq: Status: Active Protocol: Activity Type Activity Date Activity User E-Sign Co-Sign Detail Recorded Client Recorded Date Recorded By Document 05/23/20 11:11 DL [id number] 05/23/20 11:23 DL 05/23/20 11:11 Wound Center Nurse 1 [Ulcer Assessment] 44-right 3rd toe -Current Size (cm) - Length 0.7 -Current Size (cm) - Width 0.5 -Current Size (cm) - Depth 0.1 -Total Square Cm 0.35 -Photo Taken No -Exudate Amt Medium -Exudate Type Serosanguineous -Wound Margin Distinct, Outline Attached -Granulation Amt Medium (34-66%) -Granulation Quality Red -Necrosis Amt Medium (34-66%) -Necrotic Tissue Type Adherent Slough -Structure Exposed N/A -Texture (Susy-wound Skin Appearance) Localized Edema ,Scarring -Moisture (Susy-wound Skin Appearance Dry/Scaly ) -Color (Susy-wound Skin Appearance) Hemosiderin Staining -Temperature (Susy-wound Skin No Abnormality Appearance) (Pt Warm) -Tenderness on Palpation (Susy-wound No Skin Appearance) -Ulcer Cleansing Wound Cleanser -Foul Odor after Cleansing No -Anesthetic Used 4% Lidocaine Solution 39-right lateral foot -Combined with other wound No -Current Size (cm) - Length 0.7 -Current Size (cm) - Width 0.8 -Current Size (cm) - Depth 0.1 -Total Square Cm 0.56 -Tunneling No -Undermining/Tunneling No -Circular Undermining No -Exudate Amt Small -Exudate Type Serosanguineous -Wound Margin Thickened & Rolled Under -Granulation Amt Small (1-33%) -Granulation Quality [place] -Slough/Fibrin Yes -Necrosis Amt Medium (34-66%) -Necrotic Tissue Type Adherent Slough -Structure Exposed N/A -Texture (Susy-wound Skin Appearance) Assessed -Moisture (Susy-wound Skin Appearance Assessed,Dry/ ) Scaly -Color (Susy-wound Skin Appearance) Assessed -Temperature (Susy-wound Skin No Abnormality Appearance) (Pt Warm) -Tenderness on Palpation (Susy-wound No Skin Appearance) -Ulcer Cleansing Wound Cleanser -Foul Odor after Cleansing No -Anesthetic Used 4% Lidocaine Solution #35 L Stump -Combined with other wound No -Current Size (cm) - Length 0.8 -Current Size (cm) - Width 1.5 -Current Size (cm) - Depth 0.4 -Total Square Cm 1.20 -Tunneling No -Undermining/Tunneling No -Circular Undermining No -Exudate Amt Small -Exudate Type Serosanguineous -Wound Margin Thickened & Rolled Under -Granulation Amt None Present (0 %) -Slough/Fibrin Yes -Necrosis Amt Large (67-100%) -Necrotic Tissue Type Adherent Slough -Structure Exposed N/A -Texture (Susy-wound Skin Appearance) Assessed -Moisture (Susy-wound Skin Appearance Dry/Scaly ) -Color (Susy-wound Skin Appearance) Assessed -Temperature (Susy-wound Skin No Abnormality Appearance) (Pt Warm) -Tenderness on Palpation (Susy-wound No Skin Appearance) -Ulcer Cleansing Wound Cleanser -Foul Odor after Cleansing No -Anesthetic Used 4% Lidocaine Solution #42- R MEDIAL FOOT -Combined with other wound No -Current Size (cm) - Length 1.4 -Current Size (cm) - Width 1 -Current Size (cm) - Depth 0.2 -Total Square Cm 1.4 -Tunneling No -Undermining/Tunneling No -Circular Undermining No -Exudate Amt Small -Exudate Type Serosanguineous -Wound Margin Thickened & Rolled Under -Granulation Amt Medium (34-66%) -Granulation Quality [place] -Slough/Fibrin Yes -Necrosis Amt Medium (34-66%) -Necrotic Tissue Type Adherent Slough -Structure Exposed N/A -Texture (Susy-wound Skin Appearance) Assessed -Moisture (Susy-wound Skin Appearance Assessed ) -Color (Susy-wound Skin Appearance) Assessed -Temperature (Susy-wound Skin No Abnormality Appearance) (Pt Warm) -Tenderness on Palpation (Susy-wound No Skin Appearance) -Ulcer Cleansing Wound Cleanser -Foul Odor after Cleansing No -Anesthetic Used 4% Lidocaine Solution #37-right 2nd toe -Combined with other wound No -Current Size (cm) - Length 1 -Current Size (cm) - Width 0.6 -Current Size (cm) - Depth 0.5 -Total Square Cm 0.6 -Tunneling No -Undermining/Tunneling No -Circular Undermining No -Exudate Amt Small -Exudate Type Serosanguineous -Wound Margin Thickened & Rolled Under -Granulation Amt Medium (34-66%) -Granulation Quality [place] -Slough/Fibrin Yes -Necrosis Amt Medium (34-66%) -Necrotic Tissue Type Adherent Slough -Structure Exposed N/A -Texture (Susy-wound Skin Appearance) Assessed -Moisture (Susy-wound Skin Appearance Assessed ) -Color (Susy-wound Skin Appearance) Assessed -Temperature (Susy-wound Skin No Abnormality Appearance) (Pt Warm) -Tenderness on Palpation (Susy-wound No Skin Appearance) -Ulcer Cleansing Wound Cleanser -Foul Odor after Cleansing No -Anesthetic Used 4% Lidocaine Solution WC - Nurse 2 - General Ulcer CM Notes Start: 05/16/20 14:06 Freq: Status: Active Protocol: Activity Type Activity Date Activity User E-Sign Co-Sign Detail Recorded Client Recorded Date Recorded By Document 05/23/20 11:35 NORRIS [id number] 05/23/20 11:42 NORRIS 05/23/20 11:35 Wound Center Nurse 2 [Procedure/Treatment] 44-right 3rd toe -Time 11:35 -Correct Patient Yes -Correct Side, Site, Position Yes -Correct Procedure Yes -Procedure Performed Yes -Type of Procedure Debridement -Clinical Debridement Subcutaneous -Tissue Removed Subcutaneous -Post Debridement (cm) - Length 0.8 -Post Debridement (cm) - Width 0.5 -Post Debridement (cm) - Depth 0.1 -Total Square (Post) (cm) 0.40 -Area of Debridement (cm) - Length 0.8 -Area of Debridement (cm) - Width 0.5 -Total Square (Area) (cm) 0.40 -Tunneling No -Undermining/Tunneling No -Circular Undermining No -Wound/Ulcer Outcome Not Healed -Ulcer Cleansing Rinsed/ Irrigated with Saline -Foul Odor after Cleansing No -Bioengineered Tissue No -Bleeding Controlled with Pressure -Offloading Yes -Type of Offloading Surgical Shoe -Treatment Response Procedure Tolerated Well -Debridement - Subq, 1st 20sq cm Yes 39-right lateral foot -Time 11:36 -Correct Patient Yes -Correct Side, Site, Position Yes -Correct Procedure Yes -Procedure Performed Yes -Type of Procedure Debridement -Clinical Debridement Subcutaneous -Tissue Removed Subcutaneous -Post Debridement (cm) - Length 0.8 -Post Debridement (cm) - Width 0.8 -Post Debridement (cm) - Depth 0.1 -Total Square (Post) (cm) 0.64 -Area of Debridement (cm) - Length 0.8 -Area of Debridement (cm) - Width 0.8 -Total Square (Area) (cm) 0.64 -Tunneling No -Undermining/Tunneling No -Circular Undermining No -Wound/Ulcer Outcome Not Healed -Ulcer Cleansing Rinsed/ Irrigated with Saline -Foul Odor after Cleansing No -Bioengineered Tissue No -Bleeding Controlled with Pressure -Offloading Yes -Type of Offloading Surgical Shoe -Treatment Response Procedure Tolerated Well -Debridement - Subq, 1st 20sq cm No #35 L Stump -Correct Patient No -Correct Side, Site, Position No -Correct Procedure No -Procedure Performed No -Wound/Ulcer Outcome Not Healed #42- R MEDIAL FOOT -Time 11:37 -Correct Patient Yes -Correct Side, Site, Position Yes -Correct Procedure Yes -Procedure Performed Yes -Type of Procedure Debridement -Clinical Debridement Subcutaneous -Tissue Removed Subcutaneous -Post Debridement (cm) - Length 1.5 -Post Debridement (cm) - Width 1 -Post Debridement (cm) - Depth 0.2 -Total Square (Post) (cm) 1.5 -Area of Debridement (cm) - Length 1.5 -Area of Debridement (cm) - Width 1 -Total Square (Area) (cm) 1.5 -Tunneling No -Undermining/Tunneling No -Circular Undermining No -Wound/Ulcer Outcome Not Healed -Ulcer Cleansing Rinsed/ Irrigated with Saline -Foul Odor after Cleansing No -Bioengineered Tissue No -Bleeding Controlled with Pressure -Offloading Yes -Type of Offloading Surgical Shoe -Treatment Response Procedure Tolerated Well -Debridement - Subq, 1st 20sq cm No #37-right 2nd toe -Time 11:37 -Correct Patient Yes -Correct Side, Site, Position Yes -Correct Procedure Yes -Procedure Performed Yes -Type of Procedure Debridement -Clinical Debridement Subcutaneous -Tissue Removed Subcutaneous -Post Debridement (cm) - Length 0.8 -Post Debridement (cm) - Width 0.5 -Post Debridement (cm) - Depth 0.1 -Total Square (Post) (cm) 0.40 -Area of Debridement (cm) - Length 0.8 -Area of Debridement (cm) - Width 0.5 -Total Square (Area) (cm) 0.40 -Tunneling No -Undermining/Tunneling No -Circular Undermining No -Wound/Ulcer Outcome Not Healed -Ulcer Cleansing Rinsed/ Irrigated with Saline -Foul Odor after Cleansing No -Bioengineered Tissue No -Bleeding Controlled with Pressure -Offloading Yes -Type of Offloading Surgical Shoe -Treatment Response Procedure Tolerated Well -Debridement - Subq, 1st 20sq cm No [See Physician Procedure note for Specifics] Pain Scale: 0-10 Numeric [Pain] -Is Patient Pain Free? Yes WC - Nurse 3 - General Ulcer D/C NN Start: 05/16/20 14:06 Freq: Status: Active Protocol: Activity Type Activity Date Activity User E-Sign Co-Sign Detail Recorded Client Recorded Date Recorded By Document 05/23/20 11:43 NORRIS [id number] 05/23/20 11:45 NORRIS 05/23/20 11:43 Wound Care Nurse 3 [Wound Dressing] 44-right 3rd toe -Ulcer Cleansing Rinsed/ Irrigated with Saline -Foul Odor after Cleansing No -Other Dressing 0.25 DAKINS -Primary Dressing Covered/Secured Dry Gauze & with Roll Gauze, Secured with Tape 39-right lateral foot -Ulcer Cleansing Rinsed/ Irrigated with Saline -Foul Odor after Cleansing No -Other Dressing .25% DAKINS -Primary Dressing Covered/Secured Dry Gauze & with Roll Gauze, Secured with Tape #35 L Stump -Ulcer Cleansing Rinsed/ Irrigated with Saline -Foul Odor after Cleansing No -Other Dressing 0.25% dakins -Primary Dressing Covered/Secured Dry Gauze & with Roll Gauze, Secured with Tape #42- R MEDIAL FOOT -Ulcer Cleansing Rinsed/ Irrigated with Saline -Foul Odor after Cleansing No -Primary Dressing Covered/Secured Dry Gauze & with Roll Gauze, Secured with Tape -Other Covering 0.25% dakins #37-right 2nd toe -Ulcer Cleansing Rinsed/ Irrigated with Saline -Foul Odor after Cleansing No -Other Dressing 0.25% dakins -Primary Dressing Covered/Secured Dry Gauze & with Roll Gauze, Secured with Tape [Compression Applied] Left -Other circaids Right -Other circaids Pain Scale: 0-10 Numeric [Pain] -Is Patient Pain Free? Yes - Visit Discharge [Visit Discharge Information] -Discharge Condition Stable -Ambulatory Status Wheelchair -Transportation Private Auto -Medication Reconcilliation completed Yes & provided to patient/care provider -Clinical Summary of Care Provided Yes Musculoskeletal: No Tenderness to Palpation of Joints or Extremities, Muscle Wasting, - - Left below-knee amputation. Right hallux amputation. Compartments are soft to palpate bilateral lower extremities without bogginess or fluctuance Neurological: - - Lack of epicritic sensation light touch is consistent with his neuropathic status Debridement Note Post-Debridement Measurements/Treatment - Nurse 2 - General Ulcer CM Notes Start: 05/16/20 14:06 Freq: Status: Active Protocol: Activity Type Activity Date Activity User E-Sign Co-Sign Detail Recorded Client Recorded Date Recorded By Document 05/16/20 14:32 [id number] 05/16/20 14:38 Document 05/23/20 11:35 [id number] 05/23/20 11:42 05/16/20 05/23/20 14:32 11:35 Wound Center Nurse 2 44-right 3rd toe -Time 14:34 11:35 -Correct Patient Yes Yes -Correct Side, Site, Position Yes Yes -Correct Procedure Yes Yes -Procedure Performed Yes Yes -Type of Procedure Debridement Debridement -Clinical Debridement Subcutaneous Subcutaneous -Tissue Removed Subcutaneous Subcutaneous -Post Debridement (cm) - Length 0.2 0.8 -Post Debridement (cm) - Width 0.1 0.5 -Post Debridement (cm) - Depth 0.1 0.1 -Total Square (Post) (cm) 0.02 0.40 -Area of Debridement (cm) - Length 0.2 0.8 -Area of Debridement (cm) - Width 0.1 0.5 -Total Square (Area) (cm) 0.02 0.40 -Tunneling No No -Undermining/Tunneling No No -Circular Undermining No No -Wound/Ulcer Outcome Not Healed Not Healed -Ulcer Cleansing Rinsed/ Rinsed/ Irrigated with Irrigated with Saline Saline -Foul Odor after Cleansing No No -Bioengineered Tissue No No -Bleeding Controlled with Pressure Pressure -Offloading Yes Yes -Type of Offloading Surgical Shoe Surgical Shoe -Treatment Response Procedure Procedure Tolerated Well Tolerated Well -Debridement - Subq, 1st 20sq cm Yes Yes 39-right lateral foot -Time 14:34 11:36 -Correct Patient Yes Yes -Correct Side, Site, Position Yes Yes -Correct Procedure Yes Yes -Procedure Performed Yes Yes -Type of Procedure Debridement Debridement -Clinical Debridement Subcutaneous Subcutaneous -Tissue Removed Subcutaneous Subcutaneous -Post Debridement (cm) - Length 0.9 0.8 -Post Debridement (cm) - Width 0.9 0.8 -Post Debridement (cm) - Depth 0.2 0.1 -Total Square (Post) (cm) 0.81 0.64 -Area of Debridement (cm) - Length 0.9 0.8 -Area of Debridement (cm) - Width 0.9 0.8 -Total Square (Area) (cm) 0.81 0.64 -Tunneling No No -Undermining/Tunneling No No -Circular Undermining No No -Wound/Ulcer Outcome Not Healed Not Healed -Ulcer Cleansing Rinsed/ Rinsed/ Irrigated with Irrigated with Saline Saline -Foul Odor after Cleansing No No -Bioengineered Tissue No No -Bleeding Controlled with Pressure Pressure -Offloading Yes Yes -Type of Offloading Surgical Shoe Surgical Shoe -Treatment Response Procedure Procedure Tolerated Well Tolerated Well -Debridement - Subq, 20sq cm No No #35 L Stump -Time 14:34 -Correct Patient Yes No -Correct Side, Site, Position Yes No -Correct Procedure Yes No -Procedure Performed Yes No -Type of Procedure Debridement -Clinical Debridement Subcutaneous -Tissue Removed Subcutaneous -Post Debridement (cm) - Length 1 -Post Debridement (cm) - Width 1.5 -Post Debridement (cm) - Depth 0.4 -Total Square (Post) (cm) 1.5 -Area of Debridement (cm) - Length 1 -Area of Debridement (cm) - Width 1.5 -Total Square (Area) (cm) 1.5 -Tunneling No -Undermining/Tunneling No -Circular Undermining No -Wound/Ulcer Outcome Healed- Not Healed Surgical Closure -Foul Odor after Cleansing No -Bioengineered Tissue No -Bleeding Controlled with Pressure -Offloading No -Treatment Response Procedure Tolerated Well -Debridement - Subq, 1st 20sq cm No #42- R MEDIAL FOOT -Time 14:35 11:37 -Correct Patient Yes Yes -Correct Side, Site, Position Yes Yes -Correct Procedure Yes Yes -Procedure Performed Yes Yes -Type of Procedure Debridement Debridement -Clinical Debridement Subcutaneous Subcutaneous -Tissue Removed Subcutaneous Subcutaneous -Post Debridement (cm) - Length 1.5 1.5 -Post Debridement (cm) - Width 2.4 1 -Post Debridement (cm) - Depth 0.1 0.2 -Total Square (Post) (cm) 3.60 1.5 -Area of Debridement (cm) - Length 1.5 1.5 -Area of Debridement (cm) - Width 2.4 1 -Total Square (Area) (cm) 3.60 1.5 -Tunneling No No -Undermining/Tunneling No No -Circular Undermining No No -Wound/Ulcer Outcome Not Healed Not Healed -Ulcer Cleansing Rinsed/ Rinsed/ Irrigated with Irrigated with Saline Saline -Foul Odor after Cleansing No No -Bioengineered Tissue No No -Bleeding Controlled with Pressure Pressure -Offloading Yes Yes -Type of Offloading Surgical Shoe Surgical Shoe -Treatment Response Procedure Procedure Tolerated Well Tolerated Well -Debridement - Subq, 1st 20sq cm No No #37-right 2nd toe -Time 14:35 11:37 -Correct Patient Yes Yes -Correct Side, Site, Position Yes Yes -Correct Procedure Yes Yes -Procedure Performed Yes Yes -Type of Procedure Debridement Debridement -Clinical Debridement Subcutaneous Subcutaneous -Tissue Removed Subcutaneous Subcutaneous -Post Debridement (cm) - Length 1 0.8 -Post Debridement (cm) - Width 0.6 0.5 -Post Debridement (cm) - Depth 0.4 0.1 -Total Square (Post) (cm) 0.6 0.40 -Area of Debridement (cm) - Length 1.6 0.8 -Area of Debridement (cm) - Width 0.6 0.5 -Total Square (Area) (cm) 0.96 0.40 -Tunneling No No -Undermining/Tunneling No No -Circular Undermining No No -Wound/Ulcer Outcome Not Healed Not Healed -Ulcer Cleansing Rinsed/ Rinsed/ Irrigated with Irrigated with Saline Saline -Foul Odor after Cleansing No No -Bioengineered Tissue No No -Bleeding Controlled with Pressure Pressure -Offloading Yes Yes -Type of Offloading Surgical Shoe Surgical Shoe -Treatment Response Procedure Procedure Tolerated Well Tolerated Well -Debridement - Subq, 1st 20sq cm No No Pain Scale: 0-10 Numeric Is Patient Pain Free? Yes Yes - Nurse 3 - General Ulcer D/C NN Start: 05/16/20 14:06 Freq: Status: Active Protocol: Activity Type Activity Date Activity User E-Sign Co-Sign Detail Recorded Client Recorded Date Recorded By Document 05/23/20 11:43 NORRIS [id number] 05/23/20 11:45 NORRIS 05/23/20 11:43 Wound Care Nurse 3 44-right 3rd toe -Ulcer Cleansing Rinsed/ Irrigated with Saline -Foul Odor after Cleansing No -Other Dressing 0.25 DAKINS -Primary Dressing Covered/Secured with Dry Gauze & Roll Gauze, Secured with Tape 39-right lateral foot -Ulcer Cleansing Rinsed/ Irrigated with Saline -Foul Odor after Cleansing No -Other Dressing .25% DAKINS -Primary Dressing Covered/Secured with Dry Gauze & Roll Gauze, Secured with Tape #35 L Stump -Ulcer Cleansing Rinsed/ Irrigated with Saline -Foul Odor after Cleansing No -Other Dressing 0.25% dakins -Primary Dressing Covered/Secured with Dry Gauze & Roll Gauze, Secured with Tape #42- R MEDIAL FOOT -Ulcer Cleansing Rinsed/ Irrigated with Saline -Foul Odor after Cleansing No -Primary Dressing Covered/Secured with Dry Gauze & Roll Gauze, Secured with Tape -Other Covering 0.25% dakins #37-right 2nd toe -Ulcer Cleansing Rinsed/ Irrigated with Saline -Foul Odor after Cleansing No -Other Dressing 0.25% dakins -Primary Dressing Covered/Secured with Dry Gauze & Roll Gauze, Secured with Tape Left -Other circaids Right -Other circaids Pain Scale: 0-10 Numeric Is Patient Pain Free? Yes - Visit Discharge Discharge Condition Stable Ambulatory Status Wheelchair Transportation Private Auto Medication Reconcilliation completed & Yes provided to patient/care provider Clinical Summary of Care Provided Yes Wound debrided: plantar 1 and 5 metatarsal heads, distal 3rd toe Laterality: Right Wound Grade/Stage: grade 1 Type of Debridement: Excisional debridement Anesthesia Used: 5% Lidocaine Gel Depth: in the subcutaneous layer Percentage of wound debrided: 100 Instrument Used: #15 blade Tissue Removed: fibrous, devitalized subcutaneous, biofilm, slough Severity: Fat Layer Exposed Amount of bleeding with debridement: Mild Bleeding Controlled with: Pressure Patient tolerated procedure well - Additional Wound Wound debrided: dorsal distal 2nd toe Laterality: Right Wound Grade/Stage: grade 3 Type of Debridement: Excisional debridement Anesthesia Used: 5% Lidocaine Gel Depth: in the subcutaneous layer Percentage of wound debrided: 100 Instrument Used: #15 blade Tissue Removed: fibrous, devitalized subcutaneous, biofilm, slough Severity: Fat Layer Exposed Amount of bleeding with debridement: Mild Bleeding Controlled with: Pressure Patient tolerated procedure: Patient tolerated procedure well - Additional Wound Wound debrided: central below knee amputation stump site Laterality: Left Wound Grade/Stage: grade 1 Patient tolerated procedure: - - no debridement performed today Assessment/Plan Active Problems Ulcer of right lower extremity with fat layer exposed (Chronic) Delayed wound healing (Chronic) Venous insufficiency (Chronic) Type 2 diabetes mellitus with diabetic polyneuropathy (Chronic) Ulcer of left lower extremity with fat layer exposed (Chronic) Diabetes mellitus with polyneuropathy (Chronic) Osteomyelitis of foot (Chronic) Assessment: Open surgical wound anterior aspect left BKA stump. second toe ulcer, status change with exposed discolored bone (osteomyelitis; jerez grade 3). third toe ulcer, jerez grade 1, no infection. Right plantar lateral forefoot ulcer, jerez grade 1, no infection. Right plantar medial forefoot ulcer, jerez grade 1, no infection. Peripheral vascular disease. Diabetes with neuropathy. history of acute kidney injury. ambulation difficulty with left amputation and debility. Plan: I reviewed and discussed his case. His ulcer for debrided is on the clinical panel to the right foot in a subcutaneous excisional manner. He was recently diagnosed with osteomyelitis of the right second toe which is consistent firmed with pathology and microbiology bone biopsies. To continue on IV cefepime and oral flagyl for full 6 week treatment of osteomyelitis with infectious disease. Seen today and appreciated. To change all ulcer sites daily with Dakin wet-to-dry dressings. His microbiology bone growth was reviewed with the following: pseudomonas, strep, corynebacterium striatum, and anaerobic cocci. His c-diff symptoms have also resolved. Labs from [facility] on 04-30-20 were also reviewed as the following: wbc 5.61, Cr 1.71, GFR 41, albumin 1.9, crp 16.1, ESR 89. His prior foot x-rays did not have soft tissue emphysema but there was disintegration of the distal second toe and his injury and now concern of infection site. He was advised to keep pressure off of the ulcer sites and a surgical shoe with heel weightbearing. To ambulate with his potential surgical shoe in place if able to as he presents today in automated wheelchair. To continue to optimize healing with improved glycemic index, continued weight reduction, and well-balanced [employer] nutrients. His hemoglobin A1c is significantly improved to 6.9%. To continue with edema management including his compression wraps and also lymphedema pumps. To return to clinic in 1 week or to call sooner if you have any questions or concerns. If his local signs of infection or status worsens or he develops systemic signs of illness he was advised to call the office immediately or present to the emergency room. RTC at wound healing center next week.
[2020-06-06 13:59] VITALS: RESP 20; BMI 43.2
--- NOTE | 2020-06-06 17:03 | PN.PCM_ITS ---
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 Code(s): L97.514 - Non-pressure chronic ulcer of other part of right foot with necrosis of bone (3) Ulcer of left lower extremity with fat layer exposed Status: Chronic Code(s): L97.922 - Non-pressure chronic ulcer of unspecified part of left lower leg with fat layer exposed (4) Delayed wound healing Status: Chronic Code(s): T14.8XXD - Other injury of unspecified body region, subsequent encounter (5) Venous insufficiency Status: Chronic Code(s): I87.2 - Venous insufficiency (chronic) (peripheral) (6) Type 2 diabetes mellitus with diabetic polyneuropathy Status: Chronic Qualifiers: Code(s): E11.42 - Type 2 diabetes mellitus with diabetic polyneuropathy (7) Diabetes mellitus with polyneuropathy Status: Chronic Qualifiers: Code(s): E11.42 - Type 2 diabetes mellitus with diabetic polyneuropathy (8) Osteomyelitis of foot Status: Chronic Qualifiers: Laterality: right Code(s): M86.9 - Osteomyelitis, unspecified Type of Wound Date of Service: 06/06/20 Chief Complaint: Open surgical wound anterior aspect left BKA stump. Right second toe ulcer with recent and recurrent injury and infection. Right distal third toe ulcer. Right plantar lateral foot ulcer. 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 He also has multiple right foot ulcers and a right leg ulcer, and has been performing dressing changes as advised. He was diagnosed with osteomyelitis of right second toe as well. He is on iv cefepime and flagyl for treatment of osteomyelitis and saw Dr. Bartlett today as well. Progress of Wound: Improving all right foot symptoms. Continued delayed healing left leg, stable - Physical Exam Vital Signs Temp Pulse Resp BP 96.8 F L 52 L 20 H 159/61 H 05/23/20 11:11 05/23/20 11:11 06/06/20 13:59 05/23/20 11:11 General: Alert, Oriented x3, Cooperative, No apparent distress HEENT: Atraumatic Extremities: No cyanosis, Capillary Refill Less than 3 Seconds, No Calf Tenderness, Diminished Peripheral Pulses, Edema Skin: Ulcer/ Wound - No purulence, erythema, streaking, odor, infection. No longer any visualized bone on the right second toe. His skin is atrophic and hairless Wound Measurements and Assessment WC - Nurse 1 - General Ulcer Measurement Start: 05/16/20 14:06 Freq: Status: Active Protocol: Activity Type Activity Date Activity User E-Sign Co-Sign Detail Recorded Client Recorded Date Recorded By Document 06/06/20 13:59 DL [id number] 06/06/20 14:10 DL 06/06/20 13:59 Wound Center Nurse 1 [Ulcer Assessment] 44-right 3rd toe -Current Size (cm) - Length 0.1 -Current Size (cm) - Width 0.1 -Current Size (cm) - Depth 0.1 -Total Square Cm 0.01 -Photo Taken No -Exudate Amt None Present -Exudate Type Serosanguineous -Wound Margin Thickened -Granulation Amt None Present (0 %) -Necrosis Amt Large (67-100%) -Necrotic Tissue Type Adherent Slough -Texture (Susy-wound Skin Appearance) Scarring -Moisture (Susy-wound Skin Appearance Dry/Scaly ) -Color (Susy-wound Skin Appearance) Hemosiderin Staining -Temperature (Susy-wound Skin No Abnormality Appearance) (Pt Warm) -Tenderness on Palpation (Susy-wound No Skin Appearance) -Ulcer Cleansing Wound Cleanser -Foul Odor after Cleansing No -Anesthetic Used 4% Lidocaine Solution 39-right lateral foot -Current Size (cm) - Length 0.1 -Current Size (cm) - Width 0.1 -Current Size (cm) - Depth 0.1 -Total Square Cm 0.01 -Photo Taken No -Exudate Amt None Present -Wound Margin Thickened -Granulation Amt None Present (0 %) -Necrosis Amt Large (67-100%) -Necrotic Tissue Type Adherent Slough -Structure Exposed N/A -Texture (Susy-wound Skin Appearance) Scarring -Moisture (Susy-wound Skin Appearance Dry/Scaly ) -Color (Susy-wound Skin Appearance) Hemosiderin Staining -Temperature (Susy-wound Skin No Abnormality Appearance) (Pt Warm) -Tenderness on Palpation (Susy-wound No Skin Appearance) -Ulcer Cleansing Wound Cleanser -Foul Odor after Cleansing No -Anesthetic Used 4% Lidocaine Solution #35 L Stump -Current Size (cm) - Length 0.7 -Current Size (cm) - Width 1.4 -Current Size (cm) - Depth 0.4 -Total Square Cm 0.98 -Photo Taken No -Exudate Amt Small -Exudate Type Serosanguineous -Wound Margin Thickened -Granulation Amt Large (67-100%) -Granulation Quality [place] -Necrosis Amt Small (1-33%) -Necrotic Tissue Type Adherent Slough -Structure Exposed N/A -Texture (Susy-wound Skin Appearance) Scarring -Moisture (Susy-wound Skin Appearance Dry/Scaly ) -Color (Susy-wound Skin Appearance) Hemosiderin Staining -Temperature (Susy-wound Skin No Abnormality Appearance) (Pt Warm) -Tenderness on Palpation (Susy-wound No Skin Appearance) -Ulcer Cleansing Wound Cleanser -Anesthetic Used 4% Lidocaine Solution #42- R MEDIAL FOOT -Current Size (cm) - Length 1 -Current Size (cm) - Width 1.8 -Current Size (cm) - Depth 0.1 -Total Square Cm 1.8 -Photo Taken No -Exudate Amt Small -Exudate Type Serosanguineous -Wound Margin Distinct, Outline Attached -Granulation Amt Medium (34-66%) -Granulation Quality Red -Necrosis Amt Medium (34-66%) -Necrotic Tissue Type Adherent Slough -Structure Exposed N/A -Texture (Susy-wound Skin Appearance) Scarring -Moisture (Susy-wound Skin Appearance Dry/Scaly ) -Color (Susy-wound Skin Appearance) Hemosiderin Staining -Temperature (Susy-wound Skin No Abnormality Appearance) (Pt Warm) -Tenderness on Palpation (Susy-wound No Skin Appearance) -Ulcer Cleansing Wound Cleanser -Foul Odor after Cleansing No -Anesthetic Used 4% Lidocaine Solution #37-right 2nd toe -Current Size (cm) - Length 0.5 -Current Size (cm) - Width 0.3 -Current Size (cm) - Depth 0.4 -Total Square Cm 0.15 -Photo Taken No -Exudate Amt Small -Exudate Type Serosanguineous -Wound Margin Thickened -Granulation Amt Small (1-33%) -Granulation Quality [place] -Necrosis Amt Small (1-33%) -Necrotic Tissue Type Adherent Slough -Structure Exposed N/A -Texture (Susy-wound Skin Appearance) Scarring -Moisture (Susy-wound Skin Appearance Dry/Scaly ) -Color (Susy-wound Skin Appearance) Hemosiderin Staining -Temperature (Susy-wound Skin No Abnormality Appearance) (Pt Warm) -Tenderness on Palpation (Susy-wound No Skin Appearance) -Foul Odor after Cleansing No [Edema Assessment] -Right Calf (cm) 44.5 -Right Ankle (cm) 28.4 WC - Nurse 2 - General Ulcer CM Notes Start: 05/16/20 14:06 Freq: Status: Active Protocol: Activity Type Activity Date Activity User E-Sign Co-Sign Detail Recorded Client Recorded Date Recorded By Document 06/06/20 14:52 NORRIS [id number] 06/06/20 14:59 NORRIS 06/06/20 14:52 Wound Center Nurse 2 [Procedure/Treatment] 44-right 3rd toe -Time 14:52 -Correct Patient Yes -Correct Side, Site, Position Yes -Correct Procedure Yes -Procedure Performed Yes -Type of Procedure Debridement -Clinical Debridement Subcutaneous -Tissue Removed Subcutaneous -Post Debridement (cm) - Length 0.2 -Post Debridement (cm) - Width 0.2 -Post Debridement (cm) - Depth 0.1 -Total Square (Post) (cm) 0.04 -Area of Debridement (cm) - Length 0.2 -Area of Debridement (cm) - Width 0.2 -Total Square (Area) (cm) 0.04 -Tunneling No -Undermining/Tunneling No -Circular Undermining No -Wound/Ulcer Outcome Not Healed -Ulcer Cleansing Rinsed/ Irrigated with Saline -Foul Odor after Cleansing No -Bioengineered Tissue No -Bleeding Controlled with Pressure -Offloading Yes -Type of Offloading Surgical Shoe -Treatment Response Procedure Tolerated Well -Debridement - Subq, 1st 20sq cm Yes 39-right lateral foot -Time 14:53 -Correct Patient Yes -Correct Side, Site, Position Yes -Correct Procedure Yes -Procedure Performed Yes -Type of Procedure Debridement -Clinical Debridement Subcutaneous -Tissue Removed Subcutaneous -Post Debridement (cm) - Length 0.2 -Post Debridement (cm) - Width 0.2 -Post Debridement (cm) - Depth 0.1 -Total Square (Post) (cm) 0.04 -Area of Debridement (cm) - Length 0.2 -Area of Debridement (cm) - Width 0.2 -Total Square (Area) (cm) 0.04 -Tunneling No -Undermining/Tunneling No -Circular Undermining No -Wound/Ulcer Outcome Not Healed -Ulcer Cleansing Rinsed/ Irrigated with Saline -Foul Odor after Cleansing No -Bioengineered Tissue No -Bleeding Controlled with Pressure -Offloading Yes -Type of Offloading Surgical Shoe -Treatment Response Procedure Tolerated Well -Debridement - Subq, 1st 20sq cm No #35 L Stump -Time 14:54 -Correct Patient Yes -Correct Side, Site, Position Yes -Correct Procedure Yes -Procedure Performed Yes -Type of Procedure Debridement -Clinical Debridement Subcutaneous -Tissue Removed Subcutaneous -Post Debridement (cm) - Length 1.0 -Post Debridement (cm) - Width 1.3 -Post Debridement (cm) - Depth 0.3 -Total Square (Post) (cm) 1.30 -Area of Debridement (cm) - Length 1.0 -Area of Debridement (cm) - Width 1.3 -Total Square (Area) (cm) 1.30 -Tunneling No -Undermining/Tunneling No -Circular Undermining No -Wound/Ulcer Outcome Not Healed -Ulcer Cleansing Rinsed/ Irrigated with Saline -Foul Odor after Cleansing No -Bioengineered Tissue No -Bleeding Controlled with Pressure -Offloading No -Treatment Response Procedure Tolerated Well -Debridement - Open, 1st 20sq cm No -Debridement - Subq, 1st 20sq cm Yes #42- R MEDIAL FOOT -Time 14:54 -Correct Patient Yes -Correct Side, Site, Position Yes -Correct Procedure Yes -Procedure Performed Yes -Type of Procedure Debridement -Clinical Debridement Subcutaneous -Tissue Removed Subcutaneous -Post Debridement (cm) - Length 1.1 -Post Debridement (cm) - Width 1.8 -Post Debridement (cm) - Depth 0.2 -Total Square (Post) (cm) 1.98 -Area of Debridement (cm) - Length 1.1 -Area of Debridement (cm) - Width 1.8 -Total Square (Area) (cm) 1.98 -Tunneling No -Undermining/Tunneling No -Circular Undermining No -Wound/Ulcer Outcome Not Healed -Ulcer Cleansing Rinsed/ Irrigated with Saline -Foul Odor after Cleansing No -Bioengineered Tissue No -Bleeding Controlled with Pressure -Offloading Yes -Type of Offloading Surgical Shoe -Treatment Response Procedure Tolerated Well -Debridement - Subq, 1st 20sq cm No #37-right 2nd toe -Time 14:55 -Correct Patient Yes -Correct Side, Site, Position Yes -Correct Procedure Yes -Procedure Performed Yes -Type of Procedure Debridement -Clinical Debridement Subcutaneous -Tissue Removed Subcutaneous -Post Debridement (cm) - Length 0.5 -Post Debridement (cm) - Width 0.4 -Post Debridement (cm) - Depth 0.4 -Total Square (Post) (cm) 0.20 -Area of Debridement (cm) - Length 0.5 -Area of Debridement (cm) - Width 0.4 -Total Square (Area) (cm) 0.20 -Tunneling No -Undermining/Tunneling No -Circular Undermining No -Wound/Ulcer Outcome Not Healed -Ulcer Cleansing Rinsed/ Irrigated with Saline -Foul Odor after Cleansing No -Bioengineered Tissue No -Bleeding Controlled with Pressure -Offloading Yes -Type of Offloading Surgical Shoe -Treatment Response Procedure Tolerated Well -Debridement - Subq, 1st 20sq cm No [See Physician Procedure note for Specifics] Pain Scale: 0-10 Numeric [Pain] -Is Patient Pain Free? Yes WC - Nurse 3 - General Ulcer D/C NN Start: 05/16/20 14:06 Freq: Status: Active Protocol: Activity Type Activity Date Activity User E-Sign Co-Sign Detail Recorded Client Recorded Date Recorded By Document 06/06/20 15:02 DL [id number] 06/06/20 15:05 DL 06/06/20 15:02 Wound Care Nurse 3 [Wound Dressing] 44-right 3rd toe -Ulcer Cleansing Wound Cleanser -Foul Odor after Cleansing No -Other Dressing dakins -Primary Dressing Covered/Secured Dry Gauze & with Roll Gauze, Secured with Tape 39-right lateral foot -Ulcer Cleansing Wound Cleanser -Foul Odor after Cleansing No -Other Dressing dakins -Primary Dressing Covered/Secured Dry Gauze & with Roll Gauze, Secured with Tape #35 L Stump -Ulcer Cleansing Wound Cleanser -Foul Odor after Cleansing No -Other Dressing dakins -Primary Dressing Covered/Secured Dry Gauze & with Roll Gauze, Secured with Tape #42- R MEDIAL FOOT -Ulcer Cleansing Wound Cleanser -Foul Odor after Cleansing No -Other Dressing dakins -Primary Dressing Covered/Secured Dry Gauze & with Roll Gauze, Secured with Tape #37-right 2nd toe -Ulcer Cleansing Wound Cleanser -Foul Odor after Cleansing No -Other Dressing dakins -Primary Dressing Covered/Secured Dry Gauze & with Roll Gauze, Secured with Tape [Compression Applied] Left -Other stump protector Right -Other farrow wraps [Post Procedure Tolerated] -Treatment Response Procedure Tolerated Well Pain Scale: 0-10 Numeric [Pain] -Is Patient Pain Free? Yes WC - Visit Discharge [Visit Discharge Information] -Discharge Condition Stable -Ambulatory Status Wheelchair -Transportation Private Auto Musculoskeletal: Muscle Wasting, - - Left below-knee amputation. Right hallux amputation. Bilateral compartments soft lower extremities. No bogginess or fluctuance bilateral Neurological: - - Lack of normal epicritic sensation to light touch is consistent with neuropathic status Psych/Mental Status: Normal Affect, Appropriate Debridement Note Post-Debridement Measurements/Treatment WC - Nurse 2 - General Ulcer CM Notes Start: 05/16/20 14:06 Freq: Status: Active Protocol: Activity Type Activity Date Activity User E-Sign Co-Sign Detail Recorded Client Recorded Date Recorded By Document 05/16/20 14:32 [id number] 05/16/20 14:38 Document 05/23/20 11:35 [id number] 05/23/20 11:42 Document 06/06/20 14:52 [id number] 06/06/20 14:59 05/16/20 05/23/20 06/06/20 14:32 11:35 14:52 Wound Center Nurse 2 44-right 3rd toe -Time 14:34 11:35 14:52 -Correct Patient Yes Yes Yes -Correct Side, Site, Position Yes Yes Yes -Correct Procedure Yes Yes Yes -Procedure Performed Yes Yes Yes -Type of Procedure Debridement Debridement Debridement -Clinical Debridement Subcutaneous Subcutaneous Subcutaneous -Tissue Removed Subcutaneous Subcutaneous Subcutaneous -Post Debridement (cm) - Length 0.2 0.8 0.2 -Post Debridement (cm) - Width 0.1 0.5 0.2 -Post Debridement (cm) - Depth 0.1 0.1 0.1 -Total Square (Post) (cm) 0.02 0.40 0.04 -Area of Debridement (cm) - Length 0.2 0.8 0.2 -Area of Debridement (cm) - Width 0.1 0.5 0.2 -Total Square (Area) (cm) 0.02 0.40 0.04 -Tunneling No No No -Undermining/Tunneling No No No -Circular Undermining No No No -Wound/Ulcer Outcome Not Healed Not Healed Not Healed -Ulcer Cleansing Rinsed/ Rinsed/ Rinsed/ Irrigated with Irrigated with Irrigated with Saline Saline Saline -Foul Odor after Cleansing No No No -Bioengineered Tissue No No No -Bleeding Controlled with Pressure Pressure Pressure -Offloading Yes Yes Yes -Type of Offloading Surgical Shoe Surgical Shoe Surgical Shoe -Treatment Response Procedure Procedure Procedure Tolerated Well Tolerated Well Tolerated Well -Debridement - Subq, 1st 20sq cm Yes Yes Yes 39-right lateral foot -Time 14:34 11:36 14:53 -Correct Patient Yes Yes Yes -Correct Side, Site, Position Yes Yes Yes -Correct Procedure Yes Yes Yes -Procedure Performed Yes Yes Yes -Type of Procedure Debridement Debridement Debridement -Clinical Debridement Subcutaneous Subcutaneous Subcutaneous -Tissue Removed Subcutaneous Subcutaneous Subcutaneous -Post Debridement (cm) - Length 0.9 0.8 0.2 -Post Debridement (cm) - Width 0.9 0.8 0.2 -Post Debridement (cm) - Depth 0.2 0.1 0.1 -Total Square (Post) (cm) 0.81 0.64 0.04 -Area of Debridement (cm) - Length 0.9 0.8 0.2 -Area of Debridement (cm) - Width 0.9 0.8 0.2 -Total Square (Area) (cm) 0.81 0.64 0.04 -Tunneling No No No -Undermining/Tunneling No No No -Circular Undermining No No No -Wound/Ulcer Outcome Not Healed Not Healed Not Healed -Ulcer Cleansing Rinsed/ Rinsed/ Rinsed/ Irrigated with Irrigated with Irrigated with Saline Saline Saline -Foul Odor after Cleansing No No No -Bioengineered Tissue No No No -Bleeding Controlled with Pressure Pressure Pressure -Offloading Yes Yes Yes -Type of Offloading Surgical Shoe Surgical Shoe Surgical Shoe -Treatment Response Procedure Procedure Procedure Tolerated Well Tolerated Well Tolerated Well -Debridement - Subq, 1st 20sq cm No No No #35 L Stump -Time 14:34 14:54 -Correct Patient Yes No Yes -Correct Side, Site, Position Yes No Yes -Correct Procedure Yes No Yes -Procedure Performed Yes No Yes -Type of Procedure Debridement Debridement -Clinical Debridement Subcutaneous Subcutaneous -Tissue Removed Subcutaneous Subcutaneous -Post Debridement (cm) - Length 1 1.0 -Post Debridement (cm) - Width 1.5 1.3 -Post Debridement (cm) - Depth 0.4 0.3 -Total Square (Post) (cm) 1.5 1.30 -Area of Debridement (cm) - Length 1 1.0 -Area of Debridement (cm) - Width 1.5 1.3 -Total Square (Area) (cm) 1.5 1.30 -Tunneling No No -Undermining/Tunneling No No -Circular Undermining No No -Wound/Ulcer Outcome Healed- Not Healed Not Healed Surgical Closure -Ulcer Cleansing Rinsed/ Irrigated with Saline -Foul Odor after Cleansing No No -Bioengineered Tissue No No -Bleeding Controlled with Pressure Pressure -Offloading No No -Treatment Response Procedure Procedure Tolerated Well Tolerated Well -Debridement - Open, 1st 20sq cm No -Debridement - Subq, 1st 20sq cm No Yes #42- R MEDIAL FOOT -Time 14:35 11:37 14:54 -Correct Patient Yes Yes Yes -Correct Side, Site, Position Yes Yes Yes -Correct Procedure Yes Yes Yes -Procedure Performed Yes Yes Yes -Type of Procedure Debridement Debridement Debridement -Clinical Debridement Subcutaneous Subcutaneous Subcutaneous -Tissue Removed Subcutaneous Subcutaneous Subcutaneous -Post Debridement (cm) - Length 1.5 1.5 1.1 -Post Debridement (cm) - Width 2.4 1 1.8 -Post Debridement (cm) - Depth 0.1 0.2 0.2 -Total Square (Post) (cm) 3.60 1.5 1.98 -Area of Debridement (cm) - Length 1.5 1.5 1.1 -Area of Debridement (cm) - Width 2.4 1 1.8 -Total Square (Area) (cm) 3.60 1.5 1.98 -Tunneling No No No -Undermining/Tunneling No No No -Circular Undermining No No No -Wound/Ulcer Outcome Not Healed Not Healed Not Healed -Ulcer Cleansing Rinsed/ Rinsed/ Rinsed/ Irrigated with Irrigated with Irrigated with Saline Saline Saline -Foul Odor after Cleansing No No No -Bioengineered Tissue No No No -Bleeding Controlled with Pressure Pressure Pressure -Offloading Yes Yes Yes -Type of Offloading Surgical Shoe Surgical Shoe Surgical Shoe -Treatment Response Procedure Procedure Procedure Tolerated Well Tolerated Well Tolerated Well -Debridement - Subq, 1st 20sq cm No No No #37-right 2nd toe -Time 14:35 11:37 14:55 -Correct Patient Yes Yes Yes -Correct Side, Site, Position Yes Yes Yes -Correct Procedure Yes Yes Yes -Procedure Performed Yes Yes Yes -Type of Procedure Debridement Debridement Debridement -Clinical Debridement Subcutaneous Subcutaneous Subcutaneous -Tissue Removed Subcutaneous Subcutaneous Subcutaneous -Post Debridement (cm) - Length 1 0.8 0.5 -Post Debridement (cm) - Width 0.6 0.5 0.4 -Post Debridement (cm) - Depth 0.4 0.1 0.4 -Total Square (Post) (cm) 0.6 0.40 0.20 -Area of Debridement (cm) - Length 1.6 0.8 0.5 -Area of Debridement (cm) - Width 0.6 0.5 0.4 -Total Square (Area) (cm) 0.96 0.40 0.20 -Tunneling No No No -Undermining/Tunneling No No No -Circular Undermining No No No -Wound/Ulcer Outcome Not Healed Not Healed Not Healed -Ulcer Cleansing Rinsed/ Rinsed/ Rinsed/ Irrigated with Irrigated with Irrigated with Saline Saline Saline -Foul Odor after Cleansing No No No -Bioengineered Tissue No No No -Bleeding Controlled with Pressure Pressure Pressure -Offloading Yes Yes Yes -Type of Offloading Surgical Shoe Surgical Shoe Surgical Shoe -Treatment Response Procedure Procedure Procedure Tolerated Well Tolerated Well Tolerated Well -Debridement - Subq, 1st 20sq cm No No No Pain Scale: 0-10 Numeric Is Patient Pain Free? Yes Yes Yes - Nurse 3 - General Ulcer D/C NN Start: 05/16/20 14:06 Freq: Status: Active Protocol: Activity Type Activity Date Activity User E-Sign Co-Sign Detail Recorded Client Recorded Date Recorded By Document 05/23/20 11:43 NORRIS [id number] 05/23/20 11:45 JF Document 06/06/20 15:02 DL [id number] 06/06/20 15:05 DL 05/23/20 06/06/20 11:43 15:02 Wound Care Nurse 3 44-right 3rd toe -Ulcer Cleansing Rinsed/ Wound Cleanser Irrigated with Saline -Foul Odor after Cleansing No No -Other Dressing 0.25 DAKINS dakins -Primary Dressing Covered/Secured with Dry Gauze & Dry Gauze & Roll Gauze, Roll Gauze, Secured with Secured with Tape Tape 39-right lateral foot -Ulcer Cleansing Rinsed/ Wound Cleanser Irrigated with Saline -Foul Odor after Cleansing No No -Other Dressing .25% DAKINS dakins -Primary Dressing Covered/Secured with Dry Gauze & Dry Gauze & Roll Gauze, Roll Gauze, Secured with Secured with Tape Tape #35 L Stump -Ulcer Cleansing Rinsed/ Wound Cleanser Irrigated with Saline -Foul Odor after Cleansing No No -Other Dressing 0.25% dakins dakins -Primary Dressing Covered/Secured with Dry Gauze & Dry Gauze & Roll Gauze, Roll Gauze, Secured with Secured with Tape Tape #42- R MEDIAL FOOT -Ulcer Cleansing Rinsed/ Wound Cleanser Irrigated with Saline -Foul Odor after Cleansing No No -Other Dressing dakins -Primary Dressing Covered/Secured with Dry Gauze & Dry Gauze & Roll Gauze, Roll Gauze, Secured with Secured with Tape Tape -Other Covering 0.25% dakins #37-right 2nd toe -Ulcer Cleansing Rinsed/ Wound Cleanser Irrigated with Saline -Foul Odor after Cleansing No No -Other Dressing 0.25% dakins dakins -Primary Dressing Covered/Secured with Dry Gauze & Dry Gauze & Roll Gauze, Roll Gauze, Secured with Secured with Tape Tape Left -Other circaids stump protector Right -Other circaids farrow wraps Treatment Response Procedure Tolerated Well Pain Scale: 0-10 Numeric Is Patient Pain Free? Yes Yes WC - Visit Discharge Discharge Condition Stable Stable Ambulatory Status Wheelchair Wheelchair Transportation Private Auto Private Auto Medication Reconcilliation completed & Yes provided to patient/care provider Clinical Summary of Care Provided Yes Wound debrided: anterior leg at stump site Laterality: Left - g Wound Grade/Stage: grade 1 Type of Debridement: Excisional debridement Anesthesia Used: 5% Lidocaine Gel Depth: in the subcutaneous layer Percentage of wound debrided: 100 Instrument Used: #15 blade Tissue Removed: fibrous, devitalized subcutaneous, biofilm, slough Severity: Fat Layer Exposed Amount of bleeding with debridement: Mild Patient tolerated procedure well - Additional Wound Wound debrided: plantar lateral foot , dorsal 3rd toe Laterality: Right Wound Grade/Stage: grade 1 Type of Debridement: Excisional debridement Anesthesia Used: 5% Lidocaine Gel Depth: in the subcutaneous layer Percentage of wound debrided: 100 Instrument Used: #15 blade Tissue Removed: fibrous, devitalized subcutaneous, biofilm, slough Severity: Fat Layer Exposed Amount of bleeding with debridement: Mild Bleeding Controlled with: Pressure Patient tolerated procedure: Patient tolerated procedure well - Additional Wound Wound debrided: dorsal 2 toe Laterality: Right Wound Grade/Stage: grade 3 Type of Debridement: Excisional debridement Anesthesia Used: 5% Lidocaine Gel Depth: in the subcutaneous layer Percentage of wound debrided: 100 Instrument Used: #15 blade Tissue Removed: fibrous, devitalized subcutaneous, biofilm, slough Severity: Fat Layer Exposed Amount of bleeding with debridement: Mild Bleeding Controlled with: Pressure Patient tolerated procedure: Patient tolerated procedure well Assessment/Plan Active Problems Ulcer of right lower extremity with fat layer exposed (Chronic) Delayed wound healing (Chronic) Ulcer of right foot with fat layer exposed (Chronic) 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 second toe ulcer, status change with exposed discolored bone (osteomyelitis; jerez grade 3). third toe ulcer, jerez grade 1, no infection. Right plantar lateral forefoot ulcer, jerez grade 1, no infection. Right plantar medial forefoot ulcer, jerez grade 1, no infection. Peripheral vascular disease. Diabetes with neuropathy. history of acute kidney injury. ambulation difficulty with left amputation and debility. Plan: I reviewed and discussed his case. His ulcer for debrided is on the clinical panel to the right foot and left leg in a subcutaneous excisional manner. He was previously diagnosed with osteomyelitis of the right second toe which is consistent firmed with pathology and microbiology bone biopsies. To continue on IV cefepime and oral flagyl for full 6 week treatment of osteomyelitis with infectious disease. Seen today and appreciated. To change all ulcer sites daily with Dakin wet-to-dry dressings. His microbiology bone ow was reviewed with the following: pseudomonas, strep, corynebacterium striatum, and anaerobic cocci. Labs from [facility] on 04-30-20 were also reviewed as the following: wbc 5.61, Cr 1.71, GFR 41, albumin 1.9, crp 16.1, ESR 89. His prior foot x-rays did not have soft tissue emphysema but there was disintegration of the distal second toe and his injury and now concern of infection site. He was advised to keep pressure off of the ulcer sites and a surgical shoe with heel weightbearing. To ambulate with his potential surgical shoe in place if able to as he presents today in automated wheelchair. To continue to optimize healing with improved glycemic index, continued weight reduction, and well-balanced [employer] nutrients. His hemoglobin A1c is significantly improved to 6.9%. To continue with edema management including his compression wraps and also lymphedema pumps. I recommend advanced wound healing probably application to the left leg due to his delayed healing. He has already completed courses at other sites and I do not believe he has had epifix applied to the left leg. Prior authorization will insurance will be started. The indications, benefits, anticipated healing time and management were reviewed. This is medically necessary for limb salvage. He is already tried other basic and advanced treatments including surgical intervention. To return to clinic in 1 week or to call sooner if you have any questions or concerns. RTC at wound healing center next week.
[2020-06-13 11:06] VITALS: BP 169/47; PULSE 46; RESP 16; TEMP 36.6; BMI 43.2
--- NOTE | 2020-06-13 11:41 | PN.PCM_ITS ---
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 Code(s): L97.514 - Non-pressure chronic ulcer of other part of right foot with necrosis of bone (3) Ulcer of left lower extremity with fat layer exposed Status: Chronic Code(s): L97.922 - Non-pressure chronic ulcer of unspecified part of left lower leg with fat layer exposed (4) Delayed wound healing Status: Chronic Code(s): T14.8XXD - Other injury of unspecified body region, subsequent encounter (5) Venous insufficiency Status: Chronic Code(s): I87.2 - Venous insufficiency (chronic) (peripheral) (6) Type 2 diabetes mellitus with diabetic polyneuropathy Status: Chronic Qualifiers: Code(s): E11.42 - Type 2 diabetes mellitus with diabetic polyneuropathy (7) Diabetes mellitus with polyneuropathy Status: Chronic Qualifiers: Code(s): E11.42 - Type 2 diabetes mellitus with diabetic polyneuropathy (8) Osteomyelitis of foot Status: Chronic Qualifiers: Laterality: right Code(s): M86.9 - Osteomyelitis, unspecified Type of Wound Date of Service: 06/13/20 Chief Complaint: Open surgical wound anterior aspect left BKA stump. Right second toe ulcer with recent and recurrent injury and infection. Right distal third toe ulcer. Right plantar lateral foot ulcer. 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 He also has multiple right foot ulcers and a right leg ulcer, and has been performing dressing changes as advised. He was diagnosed with osteomyelitis of right second toe as well. He completed iv cefepime and flagyl for treatment of osteomyelitis with prior management of infectious disease specialist. Progress of Wound: Improving all right foot symptoms. Continued delayed healing left leg, stable - Physical Exam Vital Signs Temp Pulse Resp BP 97.8 F 46 L 16 169/47 H 06/13/20 11:06 06/13/20 11:06 06/13/20 11:06 06/13/20 11:06 General: Alert, Oriented x3, Cooperative, No apparent distress HEENT: Atraumatic Extremities: No cyanosis, Capillary Refill Less than 3 Seconds, No Calf Tenderness, Diminished Peripheral Pulses, Edema Skin: Ulcer/ Wound - No purulence, erythema, streaking, odor, infection. Wound Measurements and Assessment WC - Nurse 1 - General Ulcer Measurement Start: 05/16/20 14:06 Freq: Status: Active Protocol: Activity Type Activity Date Activity User E-Sign Co-Sign Detail Recorded Client Recorded Date Recorded By Document 06/13/20 11:06 [facility] [id number] 06/13/20 11:16 [facility] 06/13/20 11:06 Wound Center Nurse 1 [Ulcer Assessment] 44-right 3rd toe -Combined with other wound No -Current Size (cm) - Length 0.5 -Current Size (cm) - Width 0.3 -Current Size (cm) - Depth 0.1 -Total Square Cm 0.15 -Photo Taken No -Epithelialization None Present -Tunneling No -Undermining/Tunneling No -Circular Undermining No -Exudate Amt None Present -Wound Margin Distinct, Outline Attached -Granulation Amt None Present (0 %) -Slough/Fibrin Yes -Necrosis Amt Large (67-100%) -Necrotic Tissue Type Eschar -Texture (Susy-wound Skin Appearance) Assessed, Scarring -Moisture (Susy-wound Skin Appearance Assessed ) -Color (Susy-wound Skin Appearance) Assessed -Temperature (Susy-wound Skin No Abnormality Appearance) (Pt Warm) -Tenderness on Palpation (Susy-wound No Skin Appearance) -Ulcer Cleansing Wound Cleanser -Foul Odor after Cleansing No -Anesthetic Used 4% Lidocaine Solution 39-right lateral foot -Combined with other wound No -Current Size (cm) - Length 0.6 -Current Size (cm) - Width 0.7 -Current Size (cm) - Depth 0.2 -Total Square Cm 0.42 -Photo Taken No -Epithelialization Small 1-33% -Tunneling No -Undermining/Tunneling No -Circular Undermining No -Exudate Amt Small -Exudate Type Serosanguineous -Wound Margin Distinct, Outline Attached -Granulation Amt Small (1-33%) -Granulation Quality [place] -Slough/Fibrin Yes -Necrosis Amt Large (67-100%) -Necrotic Tissue Type Adherent Slough -Texture (Susy-wound Skin Appearance) Assessed, Scarring -Moisture (Susy-wound Skin Appearance Assessed,Dry/ ) Scaly -Color (Susy-wound Skin Appearance) Assessed -Temperature (Susy-wound Skin No Abnormality Appearance) (Pt Warm) -Tenderness on Palpation (Susy-wound No Skin Appearance) -Ulcer Cleansing Wound Cleanser -Foul Odor after Cleansing No -Anesthetic Used 4% Lidocaine Solution #35 L Stump -Combined with other wound No -Current Size (cm) - Length 0.9 -Current Size (cm) - Width 1.5 -Current Size (cm) - Depth 0.3 -Total Square Cm 1.35 -Photo Taken No -Epithelialization None Present -Tunneling No -Undermining/Tunneling No -Circular Undermining No -Exudate Amt Small -Exudate Type Serous -Wound Margin Distinct, Outline Attached -Granulation Amt Small (1-33%) -Granulation Quality [place] -Slough/Fibrin Yes -Necrosis Amt Large (67-100%) -Necrotic Tissue Type Adherent Slough -Texture (Susy-wound Skin Appearance) Assessed, Scarring -Moisture (Susy-wound Skin Appearance Assessed,Dry/ ) Scaly -Color (Susy-wound Skin Appearance) Assessed -Temperature (Susy-wound Skin No Abnormality Appearance) (Pt Warm) -Tenderness on Palpation (Susy-wound No Skin Appearance) -Ulcer Cleansing Wound Cleanser -Foul Odor after Cleansing No -Anesthetic Used 4% Lidocaine Solution #42- R MEDIAL FOOT -Combined with other wound No -Current Size (cm) - Length 0.8 -Current Size (cm) - Width 1.1 -Current Size (cm) - Depth 0.2 -Total Square Cm 0.88 -Photo Taken No -Epithelialization Small 1-33% -Tunneling No -Undermining/Tunneling No -Circular Undermining No -Exudate Amt Small -Exudate Type Serous -Wound Margin Distinct, Outline Attached -Granulation Amt Medium (34-66%) -Granulation Quality [place] -Slough/Fibrin Yes -Necrosis Amt Medium (34-66%) -Necrotic Tissue Type Adherent Slough -Texture (Susy-wound Skin Appearance) Assessed, Scarring -Moisture (Susy-wound Skin Appearance Assessed,Dry/ ) Scaly -Color (Susy-wound Skin Appearance) Assessed -Temperature (Susy-wound Skin No Abnormality Appearance) (Pt Warm) -Tenderness on Palpation (Susy-wound No Skin Appearance) -Ulcer Cleansing Wound Cleanser -Foul Odor after Cleansing No -Anesthetic Used 4% Lidocaine Solution #37-right 2nd toe -Combined with other wound No -Current Size (cm) - Length 0.3 -Current Size (cm) - Width 0.3 -Current Size (cm) - Depth 0.1 -Total Square Cm 0.09 -Photo Taken No -Epithelialization None Present -Tunneling No -Undermining/Tunneling No -Circular Undermining No -Exudate Amt None Present -Wound Margin Distinct, Outline Attached -Granulation Amt None Present (0 %) -Slough/Fibrin Yes -Necrosis Amt Large (67-100%) -Necrotic Tissue Type Eschar -Texture (Susy-wound Skin Appearance) Assessed, Scarring -Moisture (Susy-wound Skin Appearance Assessed,Dry/ ) Scaly -Color (Susy-wound Skin Appearance) Assessed -Temperature (Susy-wound Skin No Abnormality Appearance) (Pt Warm) -Tenderness on Palpation (Susy-wound No Skin Appearance) -Ulcer Cleansing Wound Cleanser -Foul Odor after Cleansing No -Anesthetic Used 4% Lidocaine Solution [Edema Assessment] -Lower Limb Edema Present Yes -Right Calf (cm) 44 -Right Ankle (cm) 28.5 WC - Nurse 2 - General Ulcer CM Notes Start: 05/16/20 14:06 Freq: Status: Active Protocol: Activity Type Activity Date Activity User E-Sign Co-Sign Detail Recorded Client Recorded Date Recorded By Document 06/13/20 11:25 NORRIS [id number] 06/13/20 11:33 NORRIS 06/13/20 11:25 Wound Center Nurse 2 [Procedure/Treatment] 44-right 3rd toe -Time 11:26 -Correct Patient Yes -Correct Side, Site, Position Yes -Correct Procedure Yes -Procedure Performed Yes -Type of Procedure Debridement -Clinical Debridement Subcutaneous -Tissue Removed Subcutaneous -Post Debridement (cm) - Length 0.5 -Post Debridement (cm) - Width 0.4 -Post Debridement (cm) - Depth 0.1 -Total Square (Post) (cm) 0.20 -Area of Debridement (cm) - Length 0.5 -Area of Debridement (cm) - Width 0.4 -Total Square (Area) (cm) 0.20 -Tunneling No -Undermining/Tunneling No -Circular Undermining No -Wound/Ulcer Outcome Not Healed -Ulcer Cleansing Rinsed/ Irrigated with Saline -Foul Odor after Cleansing No -Bioengineered Tissue No -Debridement - Subq, 1st 20sq cm Yes 39-right lateral foot -Time 11:28 -Correct Patient Yes -Correct Side, Site, Position Yes -Correct Procedure Yes -Procedure Performed Yes -Type of Procedure Debridement -Clinical Debridement Subcutaneous -Tissue Removed Subcutaneous -Post Debridement (cm) - Length 0.7 -Post Debridement (cm) - Width 0.7 -Post Debridement (cm) - Depth 0.2 -Total Square (Post) (cm) 0.49 -Area of Debridement (cm) - Length 0.7 -Area of Debridement (cm) - Width 0.7 -Total Square (Area) (cm) 0.49 -Tunneling No -Undermining/Tunneling No -Circular Undermining No -Wound/Ulcer Outcome Not Healed -Ulcer Cleansing Rinsed/ Irrigated with Saline -Foul Odor after Cleansing No -Bioengineered Tissue No -Bleeding Controlled with Pressure -Offloading Yes -Type of Offloading Surgical Shoe -Treatment Response Procedure Tolerated Well -Debridement - Subq, 20sq cm No #35 L Stump -Time 11:28 -Correct Patient Yes -Correct Side, Site, Position Yes -Correct Procedure Yes -Procedure Performed Yes -Type of Procedure Debridement -Clinical Debridement Subcutaneous -Tissue Removed Subcutaneous -Post Debridement (cm) - Length 1 -Post Debridement (cm) - Width 1.5 -Post Debridement (cm) - Depth 0.3 -Total Square (Post) (cm) 1.5 -Area of Debridement (cm) - Length 1.0 -Area of Debridement (cm) - Width 1.5 -Total Square (Area) (cm) 1.50 -Tunneling No -Undermining/Tunneling No -Circular Undermining No -Wound/Ulcer Outcome Not Healed -Ulcer Cleansing Rinsed/ Irrigated with Saline -Foul Odor after Cleansing No -Bioengineered Tissue Yes -Type of Bioengineered Tissue Epifix -Expiration Date 02/13/25 -Product Lot Number [id number] -Percent Used 100 -Lot number of Saline Used [id number] -Bleeding Controlled with Pressure -Offloading No -Treatment Response Procedure Tolerated Well -Debridement - Subq, 1st 20sq cm No -Apply Skin Sub - 1st 25 sq cm - Legs 1 -Epifix (per sq cm) 4 #42- R MEDIAL FOOT -Time 11:30 -Correct Patient Yes -Correct Side, Site, Position Yes -Correct Procedure Yes -Procedure Performed Yes -Type of Procedure Debridement -Clinical Debridement Subcutaneous -Tissue Removed Subcutaneous -Post Debridement (cm) - Length 0.8 -Post Debridement (cm) - Width 1.2 -Post Debridement (cm) - Depth 0.2 -Total Square (Post) (cm) 0.96 -Area of Debridement (cm) - Length 0.8 -Area of Debridement (cm) - Width 1.2 -Total Square (Area) (cm) 0.96 -Tunneling No -Undermining/Tunneling No -Circular Undermining No -Wound/Ulcer Outcome Not Healed -Ulcer Cleansing Rinsed/ Irrigated with Saline -Foul Odor after Cleansing No -Bioengineered Tissue Yes -Type of Bioengineered Tissue Epifix -Expiration Date 02/13/25 -Product Lot Number [id number] -Percent Used 100 -Lot number of Saline Used [id number] -Bleeding Controlled with Pressure -Offloading Yes -Type of Offloading Surgical Shoe -Treatment Response Procedure Tolerated Well -Debridement - Subq, 1st 20sq cm No -Epifix (per sq cm) 0 #37-right 2nd toe -Time 11:31 -Correct Patient Yes -Correct Side, Site, Position Yes -Correct Procedure Yes -Procedure Performed Yes -Type of Procedure Debridement -Clinical Debridement Subcutaneous -Tissue Removed Subcutaneous -Post Debridement (cm) - Length 0.3 -Post Debridement (cm) - Width 0.3 -Post Debridement (cm) - Depth 0.1 -Total Square (Post) (cm) 0.09 -Area of Debridement (cm) - Length 0.3 -Area of Debridement (cm) - Width 0.3 -Total Square (Area) (cm) 0.09 -Tunneling No -Undermining/Tunneling No -Circular Undermining No -Wound/Ulcer Outcome Not Healed -Ulcer Cleansing Rinsed/ Irrigated with Saline -Foul Odor after Cleansing No -Bioengineered Tissue No -Bleeding Controlled with Pressure -Offloading Yes -Type of Offloading Surgical Shoe -Treatment Response Procedure Tolerated Well -Debridement - Subq, 1st 20sq cm No [See Physician Procedure note for Specifics] Pain Scale: 0-10 Numeric [Pain] -Is Patient Pain Free? Yes Musculoskeletal: No Tenderness to Palpation of Joints or Extremities, Muscle Wasting Neurological: - - Lack of normal epicritic sensation light touch is consistent with neuropathic status. Psych/Mental Status: Normal Affect, Appropriate Debridement Note Post-Debridement Measurements/Treatment WC - Nurse 2 - General Ulcer CM Notes Start: 05/16/20 14:06 Freq: Status: Active Protocol: Activity Type Activity Date Activity User E-Sign Co-Sign Detail Recorded Client Recorded Date Recorded By Document 05/16/20 14:32 [id number] 05/16/20 14:38 Document 05/23/20 11:35 [id number] 05/23/20 11:42 Document 06/06/20 14:52 [id number] 06/06/20 14:59 Document 06/13/20 11:25 [id number] 06/13/20 11:33 05/16/20 05/23/20 06/06/20 14:32 11:35 14:52 Wound Center Nurse 2 44-right 3rd toe -Time 14:34 11:35 14:52 -Correct Patient Yes Yes Yes -Correct Side, Site, Position Yes Yes Yes -Correct Procedure Yes Yes Yes -Procedure Performed Yes Yes Yes -Type of Procedure Debridement Debridement Debridement -Clinical Debridement Subcutaneous Subcutaneous Subcutaneous -Tissue Removed Subcutaneous Subcutaneous Subcutaneous -Post Debridement (cm) - Length 0.2 0.8 0.2 -Post Debridement (cm) - Width 0.1 0.5 0.2 -Post Debridement (cm) - Depth 0.1 0.1 0.1 -Total Square (Post) (cm) 0.02 0.40 0.04 -Area of Debridement (cm) - Length 0.2 0.8 0.2 -Area of Debridement (cm) - Width 0.1 0.5 0.2 -Total Square (Area) (cm) 0.02 0.40 0.04 -Tunneling No No No -Undermining/Tunneling No No No -Circular Undermining No No No -Wound/Ulcer Outcome Not Healed Not Healed Not Healed -Ulcer Cleansing Rinsed/ Rinsed/ Rinsed/ Irrigated with Irrigated with Irrigated with Saline Saline Saline -Foul Odor after Cleansing No No No -Bioengineered Tissue No No No -Bleeding Controlled with Pressure Pressure Pressure -Offloading Yes Yes Yes -Type of Offloading Surgical Shoe Surgical Shoe Surgical Shoe -Treatment Response Procedure Procedure Procedure Tolerated Well Tolerated Well Tolerated Well -Debridement - Subq, 1st 20sq cm Yes Yes Yes 39-right lateral foot -Time 14:34 11:36 14:53 -Correct Patient Yes Yes Yes -Correct Side, Site, Position Yes Yes Yes -Correct Procedure Yes Yes Yes -Procedure Performed Yes Yes Yes -Type of Procedure Debridement Debridement Debridement -Clinical Debridement Subcutaneous Subcutaneous Subcutaneous -Tissue Removed Subcutaneous Subcutaneous Subcutaneous -Post Debridement (cm) - Length 0.9 0.8 0.2 -Post Debridement (cm) - Width 0.9 0.8 0.2 -Post Debridement (cm) - Depth 0.2 0.1 0.1 -Total Square (Post) (cm) 0.81 0.64 0.04 -Area of Debridement (cm) - Length 0.9 0.8 0.2 -Area of Debridement (cm) - Width 0.9 0.8 0.2 -Total Square (Area) (cm) 0.81 0.64 0.04 -Tunneling No No No -Undermining/Tunneling No No No -Circular Undermining No No No -Wound/Ulcer Outcome Not Healed Not Healed Not Healed -Ulcer Cleansing Rinsed/ Rinsed/ Rinsed/ Irrigated with Irrigated with Irrigated with Saline Saline Saline -Foul Odor after Cleansing No No No -Bioengineered Tissue No No No -Bleeding Controlled with Pressure Pressure Pressure -Offloading Yes Yes Yes -Type of Offloading Surgical Shoe Surgical Shoe Surgical Shoe -Treatment Response Procedure Procedure Procedure Tolerated Well Tolerated Well Tolerated Well -Debridement - Subq, 1st 20sq cm No No No #35 L Stump -Time 14:34 14:54 -Correct Patient Yes No Yes -Correct Side, Site, Position Yes No Yes -Correct Procedure Yes No Yes -Procedure Performed Yes No Yes -Type of Procedure Debridement Debridement -Clinical Debridement Subcutaneous Subcutaneous -Tissue Removed Subcutaneous Subcutaneous -Post Debridement (cm) - Length 1 1.0 -Post Debridement (cm) - Width 1.5 1.3 -Post Debridement (cm) - Depth 0.4 0.3 -Total Square (Post) (cm) 1.5 1.30 -Area of Debridement (cm) - Length 1 1.0 -Area of Debridement (cm) - Width 1.5 1.3 -Total Square (Area) (cm) 1.5 1.30 -Tunneling No No -Undermining/Tunneling No No -Circular Undermining No No -Wound/Ulcer Outcome Healed- Not Healed Not Healed Surgical Closure -Ulcer Cleansing Rinsed/ Irrigated with Saline -Foul Odor after Cleansing No No -Bioengineered Tissue No No -Type of Bioengineered Tissue -Expiration Date -Product Lot Number -Percent Used -Lot number of Saline Used -Bleeding Controlled with Pressure Pressure -Offloading No No -Treatment Response Procedure Procedure Tolerated Well Tolerated Well -Debridement - Open, 1st 20sq cm No -Debridement - Subq, 1st 20sq cm No No -Apply Skin Sub - 1st 25 sq cm - Legs -Epifix (per sq cm) #42- R MEDIAL FOOT -Time 14:35 11:37 14:54 -Correct Patient Yes Yes Yes -Correct Side, Site, Position Yes Yes Yes -Correct Procedure Yes Yes Yes -Procedure Performed Yes Yes Yes -Type of Procedure Debridement Debridement Debridement -Clinical Debridement Subcutaneous Subcutaneous Subcutaneous -Tissue Removed Subcutaneous Subcutaneous Subcutaneous -Post Debridement (cm) - Length 1.5 1.5 1.1 -Post Debridement (cm) - Width 2.4 1 1.8 -Post Debridement (cm) - Depth 0.1 0.2 0.2 -Total Square (Post) (cm) 3.60 1.5 1.98 -Area of Debridement (cm) - Length 1.5 1.5 1.1 -Area of Debridement (cm) - Width 2.4 1 1.8 -Total Square (Area) (cm) 3.60 1.5 1.98 -Tunneling No No No -Undermining/Tunneling No No No -Circular Undermining No No No -Wound/Ulcer Outcome Not Healed Not Healed Not Healed -Ulcer Cleansing Rinsed/ Rinsed/ Rinsed/ Irrigated with Irrigated with Irrigated with Saline Saline Saline -Foul Odor after Cleansing No No No -Bioengineered Tissue No No No -Type of Bioengineered Tissue -Expiration Date -Product Lot Number -Percent Used -Lot number of Saline Used -Bleeding Controlled with Pressure Pressure Pressure -Offloading Yes Yes Yes -Type of Offloading Surgical Shoe Surgical Shoe Surgical Shoe -Treatment Response Procedure Procedure Procedure Tolerated Well Tolerated Well Tolerated Well -Debridement - Subq, 1st 20sq cm No No No -Epifix (per sq cm) #37-right 2nd toe -Time 14:35 11:37 14:55 -Correct Patient Yes Yes Yes -Correct Side, Site, Position Yes Yes Yes -Correct Procedure Yes Yes Yes -Procedure Performed Yes Yes Yes -Type of Procedure Debridement Debridement Debridement -Clinical Debridement Subcutaneous Subcutaneous Subcutaneous -Tissue Removed Subcutaneous Subcutaneous Subcutaneous -Post Debridement (cm) - Length 1 0.8 0.5 -Post Debridement (cm) - Width 0.6 0.5 0.4 -Post Debridement (cm) - Depth 0.4 0.1 0.4 -Total Square (Post) (cm) 0.6 0.40 0.20 -Area of Debridement (cm) - Length 1.6 0.8 0.5 -Area of Debridement (cm) - Width 0.6 0.5 0.4 -Total Square (Area) (cm) 0.96 0.40 0.20 -Tunneling No No No -Undermining/Tunneling No No No -Circular Undermining No No No -Wound/Ulcer Outcome Not Healed Not Healed Not Healed -Ulcer Cleansing Rinsed/ Rinsed/ Rinsed/ Irrigated with Irrigated with Irrigated with Saline Saline Saline -Foul Odor after Cleansing No No No -Bioengineered Tissue No No No -Bleeding Controlled with Pressure Pressure Pressure -Offloading Yes Yes Yes -Type of Offloading Surgical Shoe Surgical Shoe Surgical Shoe -Treatment Response Procedure Procedure Procedure Tolerated Well Tolerated Well Tolerated Well -Debridement - Subq, 1st 20sq cm No No No Pain Scale: 0-10 Numeric Is Patient Pain Free? Yes Yes Yes 06/13/20 11:25 Wound Center Nurse 2 44-right 3rd toe -Time 11:26 -Correct Patient Yes -Correct Side, Site, Position Yes -Correct Procedure Yes -Procedure Performed Yes -Type of Procedure Debridement -Clinical Debridement Subcutaneous -Tissue Removed Subcutaneous -Post Debridement (cm) - Length 0.5 -Post Debridement (cm) - Width 0.4 -Post Debridement (cm) - Depth 0.1 -Total Square (Post) (cm) 0.20 -Area of Debridement (cm) - Length 0.5 -Area of Debridement (cm) - Width 0.4 -Total Square (Area) (cm) 0.20 -Tunneling No -Undermining/Tunneling No -Circular Undermining No -Wound/Ulcer Outcome Not Healed -Ulcer Cleansing Rinsed/ Irrigated with Saline -Foul Odor after Cleansing No -Bioengineered Tissue No -Bleeding Controlled with -Offloading -Type of Offloading -Treatment Response -Debridement - Subq, 1st 20sq cm Yes 39-right lateral foot -Time 11:28 -Correct Patient Yes -Correct Side, Site, Position Yes -Correct Procedure Yes -Procedure Performed Yes -Type of Procedure Debridement -Clinical Debridement Subcutaneous -Tissue Removed Subcutaneous -Post Debridement (cm) - Length 0.7 -Post Debridement (cm) - Width 0.7 -Post Debridement (cm) - Depth 0.2 -Total Square (Post) (cm) 0.49 -Area of Debridement (cm) - Length 0.7 -Area of Debridement (cm) - Width 0.7 -Total Square (Area) (cm) 0.49 -Tunneling No -Undermining/Tunneling No -Circular Undermining No -Wound/Ulcer Outcome Not Healed -Ulcer Cleansing Rinsed/ Irrigated with Saline -Foul Odor after Cleansing No -Bioengineered Tissue No -Bleeding Controlled with Pressure -Offloading Yes -Type of Offloading Surgical Shoe -Treatment Response Procedure Tolerated Well -Debridement - Subq, 1st 20sq cm No #35 L Stump -Time 11:28 -Correct Patient Yes -Correct Side, Site, Position Yes -Correct Procedure Yes -Procedure Performed Yes -Type of Procedure Debridement -Clinical Debridement Subcutaneous -Tissue Removed Subcutaneous -Post Debridement (cm) - Length 1 -Post Debridement (cm) - Width 1.5 -Post Debridement (cm) - Depth 0.3 -Total Square (Post) (cm) 1.5 -Area of Debridement (cm) - Length 1.0 -Area of Debridement (cm) - Width 1.5 -Total Square (Area) (cm) 1.50 -Tunneling No -Undermining/Tunneling No -Circular Undermining No -Wound/Ulcer Outcome Not Healed -Ulcer Cleansing Rinsed/ Irrigated with Saline -Foul Odor after Cleansing No -Bioengineered Tissue Yes -Type of Bioengineered Tissue Epifix -Expiration Date 02/13/25 -Product Lot Number [id number] -Percent Used 100 -Lot number of Saline Used [id number] -Bleeding Controlled with Pressure -Offloading No -Treatment Response Procedure Tolerated Well -Debridement - Open, 1st 20sq cm -Debridement - Subq, 1st 20sq cm No -Apply Skin Sub - 1st 25 sq cm - Legs 1 -Epifix (per sq cm) 4 #42- R MEDIAL FOOT -Time 11:30 -Correct Patient Yes -Correct Side, Site, Position Yes -Correct Procedure Yes -Procedure Performed Yes -Type of Procedure Debridement -Clinical Debridement Subcutaneous -Tissue Removed Subcutaneous -Post Debridement (cm) - Length 0.8 -Post Debridement (cm) - Width 1.2 -Post Debridement (cm) - Depth 0.2 -Total Square (Post) (cm) 0.96 -Area of Debridement (cm) - Length 0.8 -Area of Debridement (cm) - Width 1.2 -Total Square (Area) (cm) 0.96 -Tunneling No -Undermining/Tunneling No -Circular Undermining No -Wound/Ulcer Outcome Not Healed -Ulcer Cleansing Rinsed/ Irrigated with Saline -Foul Odor after Cleansing No -Bioengineered Tissue Yes -Type of Bioengineered Tissue Epifix -Expiration Date 02/13/25 -Product Lot Number [id number] -Percent Used 100 -Lot number of Saline Used [id number] -Bleeding Controlled with Pressure -Offloading Yes -Type of Offloading Surgical Shoe -Treatment Response Procedure Tolerated Well -Debridement - Subq, 1st 20sq cm No -Epifix (per sq cm) 0 #37-right 2nd toe -Time 11:31 -Correct Patient Yes -Correct Side, Site, Position Yes -Correct Procedure Yes -Procedure Performed Yes -Type of Procedure Debridement -Clinical Debridement Subcutaneous -Tissue Removed Subcutaneous -Post Debridement (cm) - Length 0.3 -Post Debridement (cm) - Width 0.3 -Post Debridement (cm) - Depth 0.1 -Total Square (Post) (cm) 0.09 -Area of Debridement (cm) - Length 0.3 -Area of Debridement (cm) - Width 0.3 -Total Square (Area) (cm) 0.09 -Tunneling No -Undermining/Tunneling No -Circular Undermining No -Wound/Ulcer Outcome Not Healed -Ulcer Cleansing Rinsed/ Irrigated with Saline -Foul Odor after Cleansing No -Bioengineered Tissue No -Bleeding Controlled with Pressure -Offloading Yes -Type of Offloading Surgical Shoe -Treatment Response Procedure Tolerated Well -Debridement - Subq, 1st 20sq cm No Pain Scale: 0-10 Numeric Is Patient Pain Free? Yes WC - Nurse 3 - General Ulcer D/C NN Start: 05/16/20 14:06 Freq: Status: Active Protocol: Activity Type Activity Date Activity User E-Sign Co-Sign Detail Recorded Client Recorded Date Recorded By Document 05/23/20 11:43 [id number] 05/23/20 11:45 Document 06/06/20 15:02 DL [id number] 06/06/20 15:05 DL 05/23/20 06/06/20 11:43 15:02 Wound Care Nurse 3 44-right 3rd toe -Ulcer Cleansing Rinsed/ Wound Cleanser Irrigated with Saline -Foul Odor after Cleansing No No -Other Dressing 0.25 DAKINS dakins -Primary Dressing Covered/Secured with Dry Gauze & Dry Gauze & Roll Gauze, Roll Gauze, Secured with Secured with Tape Tape 39-right lateral foot -Ulcer Cleansing Rinsed/ Wound Cleanser Irrigated with Saline -Foul Odor after Cleansing No No -Other Dressing .25% DAKINS dakins -Primary Dressing Covered/Secured with Dry Gauze & Dry Gauze & Roll Gauze, Roll Gauze, Secured with Secured with Tape Tape #35 L Stump -Ulcer Cleansing Rinsed/ Wound Cleanser Irrigated with Saline -Foul Odor after Cleansing No No -Other Dressing 0.25% dakins dakins -Primary Dressing Covered/Secured with Dry Gauze & Dry Gauze & Roll Gauze, Roll Gauze, Secured with Secured with Tape Tape #42- R MEDIAL FOOT -Ulcer Cleansing Rinsed/ Wound Cleanser Irrigated with Saline -Foul Odor after Cleansing No No -Other Dressing dakins -Primary Dressing Covered/Secured with Dry Gauze & Dry Gauze & Roll Gauze, Roll Gauze, Secured with Secured with Tape Tape -Other Covering 0.25% dakins #37-right 2nd toe -Ulcer Cleansing Rinsed/ Wound Cleanser Irrigated with Saline -Foul Odor after Cleansing No No -Other Dressing 0.25% dakins dakins -Primary Dressing Covered/Secured with Dry Gauze & Dry Gauze & Roll Gauze, Roll Gauze, Secured with Secured with Tape Tape Left -Other circaids stump protector Right -Other circaids farrow wraps Treatment Response Procedure Tolerated Well Pain Scale: 0-10 Numeric Is Patient Pain Free? Yes Yes WC - Visit Discharge Discharge Condition Stable Stable Ambulatory Status Wheelchair Wheelchair Transportation Private Auto Private Auto Medication Reconcilliation completed & Yes provided to patient/care provider Clinical Summary of Care Provided Yes Wound debrided: leg Laterality: Left Wound Grade/Stage: grade 1 Type of Debridement: Excisional debridement Anesthesia Used: 5% Lidocaine Gel Depth: in the subcutaneous layer Percentage of wound debrided: 100 Instrument Used: #15 blade Tissue Removed: fibrous, devitalized subcutaneous, biofilm, slough Severity: Fat Layer Exposed Amount of bleeding with debridement: Mild Bleeding Controlled with: Pressure Patient tolerated procedure well - Additional Wound Wound debrided: medial forefoot, plantar lateral foot Laterality: Right Wound Grade/Stage: grade 1 Type of Debridement: Excisional debridement Anesthesia Used: 5% Lidocaine Gel Depth: in the subcutaneous layer Percentage of wound debrided: 100 Instrument Used: #15 blade Tissue Removed: fibrous, devitalized subcutaneous, biofilm, slough Severity: Fat Layer Exposed Amount of bleeding with debridement: Mild Bleeding Controlled with: Pressure Patient tolerated procedure: Patient tolerated procedure well - Additional Wound Wound debrided: 2 toe Laterality: Right Wound Grade/Stage: grade 3 Type of Debridement: Excisional debridement Anesthesia Used: 5% Lidocaine Gel Depth: in the subcutaneous layer Percentage of wound debrided: 100 Instrument Used: #15 blade Tissue Removed: fibrous, devitalized subcutaneous, biofilm, slough Severity: Fat Layer Exposed Amount of bleeding with debridement: Mild Bleeding Controlled with: Pressure Patient tolerated procedure: Patient tolerated procedure well Assessment/Plan Active Problems Ulcer of right lower extremity with fat layer exposed (Chronic) Delayed wound healing (Chronic) Ulcer of right foot with fat layer exposed (Chronic) 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 second toe ulcer, status change with exposed discolored bone (osteomyelitis; jerez grade 3). third toe ulcer, jerez grade 1, no infection. Right plantar lateral forefoot ulcer, jerez grade 1, no infection. Right plantar medial forefoot ulcer, jerez grade 1, no infection. Peripheral vascular disease. Diabetes with neuropathy. history of acute kidney injury. ambulation difficulty with left amputation and debility. Plan: I reviewed and discussed his case. His ulcer was debrided as noted in the clinical panel to the right foot and left leg in a subcutaneous excisional manner. He was previously diagnosed with osteomyelitis of the right second toe which is consistent firmed with pathology and microbiology bone biopsies. He completed a course of IV cefepime and oral flagyl for full 6 week treatment of osteomyelitis with infectious disease. To change all ulcer sites daily with Dakin wet-to-dry dressings. His prior microbiology bone growth was reviewed with the following: pseudomonas, strep, corynebacterium striatum, and anaerobic roberto ci. Labs from [facility] on 04-30-20 were also reviewed as the following: wbc 5.61, Cr 1.71, GFR 41, albumin 1.9, crp 16.1, ESR 89. His prior foot x-rays did not have soft tissue emphysema but there was disintegration of the distal second toe and his injury and now concern of infection site. He was advised to keep pressure off of the ulcer sites and a surgical shoe with heel weightbearing. To ambulate with his potential surgical shoe in place if able to as he presents today in automated wheelchair. To continue to optimize healing with improved glycemic index, continued weight reduction, and well-balanced [employer] nutrients. His hemoglobin A1c is significantly improved to 6.9%. To continue with edema management including his compression wraps and also lymphedema pumps. I recommend advanced wound healing probably application to the left leg due to his delayed healing. He has already completed courses at other sites and I do not believe he has had epifix applied to the left leg. Prior authorization will insurance will be started and approved. The indications, benefits, anticipated healing time and management were reviewed. This is medically necessary for limb salvage. He is already tried other basic and advanced treatments including surgical intervention. This was applied after verbal consent according standard protocol. This was further secured with a wound veil and Steri-Strips. He was advised to keep this clean, dry, and intact until follow-up next week. He was advised that it is okay to take a shower as long as he does not disrupt the epifix graft. To return to clinic in 1 week or to call sooner if you have any questions or concerns. RTC at wound healing center next week.
== END 2020-06-13 23:59 ==
LOC: WC 11:00
PROVIDERS: PCP Family Medicine; Visit Provider Surgery
DX: E11.621 Type 2 diabetes mellitus with foot ulcer (principal); E11.622 Type 2 diabetes mellitus with other skin ulcer; L97.822 Non-pressure chronic ulcer of other part of left lower leg with fat layer exposed; L97.512 Non-pressure chronic ulcer of other part of right foot with fat layer exposed; E11.51 Type 2 diabetes mellitus with diabetic peripheral angiopathy without gangrene; E11.69 Type 2 diabetes mellitus with other specified complication; M86.8X7 Other osteomyelitis, ankle and foot; T87.89 Other complications of amputation stump; Y83.8 Other surgical procedures as the cause of abnormal reaction of the patient, or of later complication, without mention of misadventure at the time of the procedure; E11.42 Type 2 diabetes mellitus with diabetic polyneuropathy; K59.00 Constipation, unspecified
CPT/HCPCS: 11042; 15271; Q4186

== ENCOUNTER 2020-07-11 11:00 | Outpatient (RCR) | payer MEDICARE, MEDICAID, SELFPAY ==
[2020-06-14 00:27] VITALS: BP 169/47; PULSE 46; RESP 16; TEMP 36.6
[2020-06-20 10:56] VITALS: BP 167/53; PULSE 53; RESP 16; TEMP 36.3; BMI 43.2
--- NOTE | 2020-06-20 11:33 | PCM.WC.PN ---
(1) Ulcer of right lower extremity with fat layer exposed Status: Chronic Code(s): L97.912 - Non-pressure chronic ulcer of unspecified part of right lower leg with fat layer exposed (2) Ulcer of right foot with necrosis of bone Status: Chronic Code(s): L97.514 - Non-pressure chronic ulcer of other part of right foot with necrosis of bone (3) Delayed wound healing Status: Chronic Code(s): T14.8XXD - Other injury of unspecified body region, subsequent encounter (4) Type 2 diabetes mellitus with diabetic polyneuropathy Status: Chronic Qualifiers: Code(s): E11.42 - Type 2 diabetes mellitus with diabetic polyneuropathy (5) Ulcer of left lower extremity with fat layer exposed Status: Chronic Code(s): L97.922 - Non-pressure chronic ulcer of unspecified part of left lower leg with fat layer exposed (6) Dehiscence of amputation stump Status: Chronic Code(s): T87.81 - Dehiscence of amputation stump (7) Type 2 diabetes mellitus with diabetic polyneuropathy Status: Chronic Code(s): E11.42 - Type 2 diabetes mellitus with diabetic polyneuropathy Type of Wound Date of Service: 06/20/20 Chief Complaint: Open surgical wound anterior aspect left BKA stump. Right second toe ulcer with recent and recurrent injury and infection. Right dorsal fourth toe ulcer. Right plantar lateral foot ulcer. 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 He also has multiple right foot ulcers and a left leg ulcer, and has been performing dressing changes as advised. He was diagnosed with osteomyelitis of right second toe as well. He completed iv cefepime and flagyl for treatment of osteomyelitis with prior management of infectious disease specialist. He has not been routinely applying compression to his left below-knee amputation stump site because it is difficult. He does occasionally wear Tubigrip. Progress of Wound: Improving all right foot. healed distal third. new fourth dorsal toe. Continued delayed healing left leg, stable - Physical Exam Vital Signs Temp Pulse Resp BP 97.4 F L 53 L 16 167/53 H 06/20/20 10:56 06/20/20 10:56 06/20/20 10:56 06/20/20 10:56 General: Alert, Oriented x3, Cooperative, No apparent distress HEENT: Atraumatic Extremities: No cyanosis, Capillary Refill Less than 3 Seconds, No Calf Tenderness, Diminished Peripheral Pulses, Edema Skin: Ulcer/ Wound - No purulence, erythema, streaking, odor, infection. Reduce ulcer size to all right foot side. Peripheral epithelialization noted. Full epithelialization noted to third toe distal site. Skin discontinuity noted dorsal fourth toe of new, - - Adjacent skin is hairless and atrophic Wound Measurements and Assessment WC - Nurse 1 - General Ulcer Measurement Start: 06/20/20 10:56 Freq: Status: Active Protocol: Activity Type Activity Date Activity User E-Sign Co-Sign Detail Recorded Client Recorded Date Recorded By Document 06/20/20 10:56 MS [id number] 06/20/20 11:10 MS 06/20/20 10:56 Wound Center Nurse 1 [Ulcer Assessment] 44-right 3rd toe -Current Size (cm) - Length 0.2 -Current Size (cm) - Width 0.2 -Current Size (cm) - Depth 0.1 -Total Square Cm 0.04 -Exudate Amt Small -Wound Margin Distinct, Outline Attached -Slough/Fibrin No -Necrosis Amt None Present (0 %) -Texture (Susy-wound Skin Appearance) No Abnormality -Moisture (Susy-wound Skin Appearance Dry/Scaly ) -Color (Susy-wound Skin Appearance) No Abnormality -Temperature (Susy-wound Skin No Abnormality Appearance) (Pt Warm) -Tenderness on Palpation (Susy-wound No Skin Appearance) -Ulcer Cleansing Wound Cleanser -Foul Odor after Cleansing No -Anesthetic Used 4% Lidocaine Solution 39-right lateral foot -Current Size (cm) - Length 0.7 -Current Size (cm) - Width 0.5 -Current Size (cm) - Depth 0.1 -Total Square Cm 0.35 -Exudate Amt None Present -Wound Margin Distinct, Outline Attached -Granulation Amt Small (1-33%) -Granulation Quality Pale -Texture (Susy-wound Skin Appearance) No Abnormality -Moisture (Susy-wound Skin Appearance Dry/Scaly ) -Color (Susy-wound Skin Appearance) No Abnormality -Temperature (Susy-wound Skin No Abnormality Appearance) (Pt Warm) -Ulcer Cleansing Wound Cleanser -Foul Odor after Cleansing No -Anesthetic Used 4% Lidocaine Solution #35 L Stump -Current Size (cm) - Length 0.9 -Current Size (cm) - Width 1.6 -Current Size (cm) - Depth 0.5 -Total Square Cm 1.44 -Exudate Amt None Present -Wound Margin Distinct, Outline Attached -Granulation Amt Medium (34-66%) -Granulation Quality Pale -Necrosis Amt Medium (34-66%) -Necrotic Tissue Type Adherent Slough -Moisture (Susy-wound Skin Appearance Dry/Scaly ) -Temperature (Susy-wound Skin No Abnormality Appearance) (Pt Warm) -Tenderness on Palpation (Susy-wound No Skin Appearance) -Ulcer Cleansing Wound Cleanser -Foul Odor after Cleansing No -Anesthetic Used 4% Lidocaine Solution #42- R MEDIAL FOOT -Current Size (cm) - Length 0.7 -Current Size (cm) - Width 1.3 -Current Size (cm) - Depth 0.2 -Total Square Cm 0.91 -Exudate Amt Large -Exudate Type Yellow/Green -Wound Margin Distinct, Outline Attached -Granulation Amt Medium (34-66%) -Granulation Quality Pale -Slough/Fibrin Yes -Necrosis Amt Medium (34-66%) -Necrotic Tissue Type Adherent Slough -Texture (Susy-wound Skin Appearance) No Abnormality -Moisture (Susy-wound Skin Appearance Dry/Scaly ) -Color (Susy-wound Skin Appearance) No Abnormality -Temperature (Susy-wound Skin No Abnormality Appearance) (Pt Warm) -Ulcer Cleansing Wound Cleanser -Foul Odor after Cleansing No -Anesthetic Used 4% Lidocaine Solution #37-right 2nd toe -Current Size (cm) - Length 0.4 -Current Size (cm) - Width 0.4 -Current Size (cm) - Depth 0.7 -Total Square Cm 0.16 -Circular Undermining Yes -Exudate Amt Medium -Exudate Type Yellow/Green -Wound Margin Distinct, Outline Attached -Granulation Amt Medium (34-66%) -Granulation Quality Pale -Necrosis Amt Medium (34-66%) -Texture (Susy-wound Skin Appearance) No Abnormality -Moisture (Susy-wound Skin Appearance Dry/Scaly ) -Color (Susy-wound Skin Appearance) No Abnormality -Temperature (Susy-wound Skin No Abnormality Appearance) (Pt Warm) -Ulcer Cleansing Wound Cleanser -Foul Odor after Cleansing No -Anesthetic Used 4% Lidocaine Solution Musculoskeletal: No Tenderness to Palpation of Joints or Extremities, Muscle Wasting, - - Left below-knee amputation. Right hallux amputation. Compartments soft to palpate bilateral lower extremities Neurological: - - Lack of epicritic sensation is consistent with neuropathic status Psych/Mental Status: Normal Affect, Appropriate Debridement Note Wound debrided: anterior leg Laterality: Left Wound Grade/Stage: grade 1 Type of Debridement: Excisional debridement Anesthesia Used: 5% Lidocaine Gel Depth: in the subcutaneous layer Percentage of wound debrided: 100 Instrument Used: #15 blade Tissue Removed: fibrous, devitalized subcutaneous, biofilm, slough Severity: Fat Layer Exposed Amount of bleeding with debridement: Mild Bleeding Controlled with: Pressure Patient tolerated procedure well - Additional Wound Wound debrided: dorsal 4th toe, medial forefoot, lateral plantar forefoot Laterality: Left Wound Grade/Stage: grade 1 Type of Debridement: Excisional debridement Anesthesia Used: 5% Lidocaine Gel Depth: in the subcutaneous layer Percentage of wound debrided: 100 Instrument Used: #15 blade Tissue Removed: fibrous, devitalized subcutaneous, biofilm, slough Severity: Fat Layer Exposed Amount of bleeding with debridement: Mild Bleeding Controlled with: Pressure Patient tolerated procedure: Patient tolerated procedure well - Additional Wound Wound debrided: dorsal 2nd toe Laterality: Right Wound Grade/Stage: grade 3 Type of Debridement: Excisional debridement Anesthesia Used: 5% Lidocaine Gel Depth: in the subcutaneous layer Percentage of wound debrided: 100 Instrument Used: #15 blade Tissue Removed: fibrous, devitalized subcutaneous, biofilm, slough Severity: Fat Layer Exposed Amount of bleeding with debridement: Mild Bleeding Controlled with: Pressure Patient tolerated procedure: Patient tolerated procedure well Assessment/Plan Active Problems Ulcer of right lower extremity with fat layer exposed (Chronic) 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 second toe ulcer, status change with exposed discolored bone (osteomyelitis; eldridge grade 3). third toe ulcer, healed. New dorsal fourth toe ulcer Eldridge grade 1, no infection. Right plantar lateral forefoot ulcer, eldridge grade 1, no infection. Right plantar medial forefoot ulcer, eldridge grade 1, no infection. Peripheral vascular disease. Diabetes with neuropathy. history of acute kidney injury. ambulation difficulty with left amputation and debility. Plan: I reviewed and discussed his case. His ulcer was debrided as noted in the clinical panel to the right foot and left leg in a subcutaneous excisional manner. He was previously diagnosed with osteomyelitis of the right second toe which is consistent firmed with pathology and microbiology bone biopsies. He completed a course of IV cefepime and oral flagyl for full 6 week treatment of osteomyelitis with infectious disease. To change all ulcer sites daily with Dakin wet-to-dry dressings. His prior microbiology bone growth was reviewed with the following: pseudomonas, strep, corynebacterium striatum, and anaerobic cocci. Labs from [facility] on 04-30-20 were also reviewed as the following: wbc 5.61, Cr 1.71, GFR 41, albumin 1.9, crp 16.1, ESR 89. His prior foot x-rays did not have soft tissue emphysema but there was disintegration of the distal second toe and his injury and now concern of infection site. He was advised to keep pressure off of the ulcer sites and a surgical shoe with heel weightbearing. To ambulate with his potential surgical shoe in place if able to as he presents today in automated wheelchair. To continue to optimize healing with improved glycemic index, continued weight reduction, and well-balanced [employer] nutrients. His hemoglobin A1c is significantly improved to 6.9%. To continue with edema management including his compression wraps and also lymphedema pumps. Additional Mateus wrap was applied prior to Tubigrip application splint to help reduce stump edema. I recommend advanced wound healing probably application to the left leg due to his delayed healing. Prior authorization will insurance will be started and approved. The indications, benefits, anticipated healing time and management were reviewed. This is medically necessary for limb salvage. He is already tried other basic and advanced treatments including surgical intervention. This was applied after verbal consent according standard protocol. This was further secured with a wound veil and Steri-Strips. He was advised to keep this clean, dry, and intact until follow-up next week. He was advised that it is okay to take a shower as long as he does not disrupt the epifix graft. To return to clinic in 1 week or to call sooner if you have any questions or concerns. RTC at wound healing center next week. Note: [employer] speech recognition spiral binder software was used to create portions of this document. Sound-alike and misspelled words, as well as other spiral binder errors may be contained in the documentation. 21 minutes was spent on this encounter. This included face to face and non face to face care including preparing for the visit, reviewing the history, performing the exam, counseling and providing education to the patient, family, or caregiver, ordering medications/test/ procedures if indicated as documented, communicating with other healthcare providers, documenting information in the medical record, interpreting / sharing this information when indicated as documented, and care coordination. A forementioned status changes are noted. [place]CRA 2020: Medications allergies were reconciled noted. Body mass index 43.2. Elevated blood pressure 167/43 noted. Diet and activity improvements were discussed to help reduce blood pressure and weight and overall healing opportunity. He denies falling within the past year. He denies current tobacco use
[2020-06-27 11:36] VITALS: BP 185/69; PULSE 58; RESP 18; TEMP 36.6; BMI 43.2
--- NOTE | 2020-06-27 12:07 | PCM.WC.PN ---
(1) Ulcer of right lower extremity with fat layer exposed Status: Chronic Code(s): L97.912 - Non-pressure chronic ulcer of unspecified part of right lower leg with fat layer exposed (2) Ulcer of right foot with necrosis of bone Status: Chronic Code(s): L97.514 - Non-pressure chronic ulcer of other part of right foot with necrosis of bone (3) Delayed wound healing Status: Chronic Code(s): T14.8XXD - Other injury of unspecified body region, subsequent encounter (4) Type 2 diabetes mellitus with diabetic polyneuropathy Status: Chronic Qualifiers: Code(s): E11.42 - Type 2 diabetes mellitus with diabetic polyneuropathy (5) Ulcer of left lower extremity with fat layer exposed Status: Chronic Code(s): L97.922 - Non-pressure chronic ulcer of unspecified part of left lower leg with fat layer exposed (6) Dehiscence of amputation stump Status: Chronic Code(s): T87.81 - Dehiscence of amputation stump (7) Type 2 diabetes mellitus with diabetic polyneuropathy Status: Chronic Code(s): E11.42 - Type 2 diabetes mellitus with diabetic polyneuropathy Type of Wound Date of Service: 06/27/20 Chief Complaint: Ulcer left leg. Right second toe ulcer with recent and recurrent injury and infection. Right plantar lateral foot ulcer. Right plantar medial foot ulcer. 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 He also has multiple right foot ulcers and a left leg ulcer, and has been performing dressing changes as advised. He was diagnosed with osteomyelitis of right second toe as well. He completed iv cefepime and flagyl for treatment of osteomyelitis with prior management of infectious disease specialist. He has not been routinely applying compression to his left below-knee amputation stump site because it is difficult. He does occasionally wear Tubigrip. He relates he thinks he injured one of his ribs and has not been able to lay flat. He has been sleeping in a lazy boy chair and has increased leg swelling. Progress of Wound: Improving all right foot. fourth dorsal toe. Continued delayed healing left leg, stable - Physical Exam Vital Signs Temp Pulse Resp BP 98 F 58 L 18 185/69 H 06/27/20 11:36 06/27/20 11:36 06/27/20 11:36 06/27/20 11:36 General: Alert, Oriented x3, Cooperative, No apparent distress HEENT: Atraumatic Extremities: No cyanosis, Capillary Refill Less than 3 Seconds, No Calf Tenderness, Diminished Peripheral Pulses, Edema - Increased bilateral lower extremities Skin: Ulcer/ Wound - No purulence, erythema, streaking, odor, infection. Adjacent skin atrophic Wound Measurements and Assessment WC - Nurse 1 - General Ulcer Measurement Start: 06/20/20 10:56 Freq: Status: Active Protocol: Activity Type Activity Date Activity User E-Sign Co-Sign Detail Recorded Client Recorded Date Recorded By Document 06/27/20 11:36 RB [id number] 06/27/20 11:50 RB 06/27/20 11:36 Wound Center Nurse 1 [Ulcer Assessment] 45-RIGHT 4TH TOE -Combined with other wound No -Current Size (cm) - Length 0.3 -Current Size (cm) - Width 0.5 -Current Size (cm) - Depth 0.1 -Total Square Cm 0.15 -Tunneling No -Undermining/Tunneling No -Circular Undermining No -Exudate Amt Small -Exudate Type Serosanguineous -Wound Margin Flat & Intact -Granulation Amt Medium (34-66%) -Granulation Quality [place] -Slough/Fibrin Yes -Necrosis Amt Small (1-33%) -Necrotic Tissue Type Adherent Slough -Structure Exposed N/A -Texture (Susy-wound Skin Appearance) Assessed -Moisture (Susy-wound Skin Appearance Assessed,Dry/ ) Scaly -Color (Susy-wound Skin Appearance) Assessed -Temperature (Susy-wound Skin No Abnormality Appearance) (Pt Warm) -Tenderness on Palpation (Susy-wound No Skin Appearance) -Ulcer Cleansing Wound Cleanser -Foul Odor after Cleansing No -Anesthetic Used 4% Lidocaine Solution 39-right lateral foot -Combined with other wound No -Current Size (cm) - Length 0.8 -Current Size (cm) - Width 0.5 -Current Size (cm) - Depth 0.2 -Total Square Cm 0.40 -Tunneling No -Undermining/Tunneling No -Circular Undermining No -Exudate Amt Small -Exudate Type Serosanguineous -Wound Margin Distinct, Outline Attached -Granulation Amt Medium (34-66%) -Granulation Quality [place] -Slough/Fibrin Yes -Necrosis Amt Small (1-33%) -Necrotic Tissue Type Adherent Slough -Structure Exposed N/A -Texture (Susy-wound Skin Appearance) Assessed -Moisture (Susy-wound Skin Appearance Assessed,Dry/ ) Scaly -Color (Susy-wound Skin Appearance) Assessed -Temperature (Susy-wound Skin No Abnormality Appearance) (Pt Warm) -Tenderness on Palpation (Susy-wound No Skin Appearance) -Ulcer Cleansing Wound Cleanser -Foul Odor after Cleansing No -Anesthetic Used 4% Lidocaine Solution #35 L Stump -Combined with other wound No -Current Size (cm) - Length 1 -Current Size (cm) - Width 1.7 -Current Size (cm) - Depth 0.4 -Total Square Cm 1.7 -Tunneling No -Undermining/Tunneling No -Circular Undermining No -Exudate Amt Small -Exudate Type Serosanguineous -Wound Margin Thickened -Granulation Amt Medium (34-66%) -Granulation Quality [place] -Slough/Fibrin Yes -Necrosis Amt Medium (34-66%) -Necrotic Tissue Type Adherent Slough -Structure Exposed N/A -Texture (Susy-wound Skin Appearance) Assessed,Callus ,Scarring -Moisture (Susy-wound Skin Appearance Assessed ) -Color (Susy-wound Skin Appearance) Assessed -Temperature (Susy-wound Skin No Abnormality Appearance) (Pt Warm) -Tenderness on Palpation (Susy-wound No Skin Appearance) -Ulcer Cleansing Wound Cleanser -Foul Odor after Cleansing No -Anesthetic Used 4% Lidocaine Solution #42- R MEDIAL FOOT -Combined with other wound No -Current Size (cm) - Length 0.5 -Current Size (cm) - Width 0.7 -Current Size (cm) - Depth 0.2 -Total Square Cm 0.35 -Tunneling No -Undermining/Tunneling No -Circular Undermining No -Exudate Amt Small -Exudate Type Serosanguineous -Wound Margin Distinct, Outline Attached -Granulation Amt Medium (34-66%) -Granulation Quality [place] -Slough/Fibrin Yes -Necrosis Amt Small (1-33%) -Necrotic Tissue Type Adherent Slough -Structure Exposed N/A -Texture (Susy-wound Skin Appearance) Assessed -Moisture (Susy-wound Skin Appearance Dry/Scaly ) -Color (Susy-wound Skin Appearance) Assessed -Temperature (Susy-wound Skin No Abnormality Appearance) (Pt Warm) -Tenderness on Palpation (Susy-wound No Skin Appearance) -Ulcer Cleansing Wound Cleanser -Foul Odor after Cleansing No -Anesthetic Used 4% Lidocaine Solution #37-right 2nd toe -Combined with other wound No -Current Size (cm) - Length 0.4 -Current Size (cm) - Width 0.5 -Current Size (cm) - Depth 0.6 -Total Square Cm 0.20 -Tunneling No -Undermining/Tunneling Yes -Undermining/Tunneling Starts (O' 12 clock) -Undermining/Tunneling Ends (O'clock) 12 -Maximum Distance (cm) 0.3 -Circular Undermining Yes -Exudate Amt Small -Exudate Type Serosanguineous -Wound Margin Distinct, Outline Attached -Granulation Amt Medium (34-66%) -Granulation Quality [place] -Slough/Fibrin Yes -Necrosis Amt Small (1-33%) -Necrotic Tissue Type Adherent Slough -Structure Exposed N/A -Texture (Susy-wound Skin Appearance) Assessed -Moisture (Susy-wound Skin Appearance Assessed,Dry/ ) Scaly -Color (Susy-wound Skin Appearance) Assessed -Temperature (Susy-wound Skin No Abnormality Appearance) (Pt Warm) -Tenderness on Palpation (Susy-wound No Skin Appearance) -Ulcer Cleansing Wound Cleanser -Foul Odor after Cleansing No -Anesthetic Used 4% Lidocaine Solution WC - Nurse 2 - General Ulcer CM Notes Start: 06/20/20 10:56 Freq: Status: Active Protocol: Activity Type Activity Date Activity User E-Sign Co-Sign Detail Recorded Client Recorded Date Recorded By Document 06/27/20 11:54 [email or web address] [id number] 06/27/20 12:03 06/27/20 11:54 Wound Center Nurse 2 [Procedure/Treatment] 45-RIGHT 4TH TOE -Time 11:56 -Correct Patient Yes -Correct Side, Site, Position Yes -Correct Procedure Yes -Procedure Performed Yes -Type of Procedure Debridement -Clinical Debridement Subcutaneous -Tissue Removed Subcutaneous -Post Debridement (cm) - Length 0.4 -Post Debridement (cm) - Width 0.3 -Post Debridement (cm) - Depth 0.1 -Total Square (Post) (cm) 0.12 -Area of Debridement (cm) - Length 0.4 -Area of Debridement (cm) - Width 0.3 -Total Square (Area) (cm) 0.12 -Tunneling No -Undermining/Tunneling No -Circular Undermining No -Wound/Ulcer Outcome Not Healed -Ulcer Cleansing Rinsed/ Irrigated with Saline -Foul Odor after Cleansing No -Bioengineered Tissue No -Bleeding Controlled with Pressure -Offloading Yes -Type of Offloading Surgical Shoe -Treatment Response Procedure Tolerated Well -Debridement - Subq, 1st 20sq cm Yes 39-right lateral foot -Time 11:58 -Correct Patient Yes -Correct Side, Site, Position Yes -Correct Procedure Yes -Procedure Performed Yes -Type of Procedure Debridement -Clinical Debridement Subcutaneous -Tissue Removed Subcutaneous -Post Debridement (cm) - Length 0.8 -Post Debridement (cm) - Width 0.6 -Post Debridement (cm) - Depth 0.2 -Total Square (Post) (cm) 0.48 -Area of Debridement (cm) - Length 0.8 -Area of Debridement (cm) - Width 0.6 -Total Square (Area) (cm) 0.48 -Tunneling No -Undermining/Tunneling No -Circular Undermining No -Wound/Ulcer Outcome Not Healed -Ulcer Cleansing Rinsed/ Irrigated with Saline -Foul Odor after Cleansing No -Bioengineered Tissue No -Bleeding Controlled with Pressure -Offloading Yes -Type of Offloading Knee Walker -Debridement - Subq, 1st 20sq cm No #35 L Stump -Time 11:59 -Correct Patient Yes -Correct Side, Site, Position Yes -Correct Procedure Yes -Procedure Performed Yes -Type of Procedure Debridement -Clinical Debridement Subcutaneous -Tissue Removed Subcutaneous -Post Debridement (cm) - Length 1 -Post Debridement (cm) - Width 1.8 -Post Debridement (cm) - Depth 0.2 -Total Square (Post) (cm) 1.8 -Area of Debridement (cm) - Length 1 -Area of Debridement (cm) - Width 1.8 -Total Square (Area) (cm) 1.8 -Tunneling No -Undermining/Tunneling No -Circular Undermining No -Wound/Ulcer Outcome Not Healed -Ulcer Cleansing Rinsed/ Irrigated with Saline -Foul Odor after Cleansing No -Bioengineered Tissue Yes -Type of Bioengineered Tissue Epifix -Expiration Date 02/13/25 -Product Lot Number [id number] -Percent Used 100 -Lot number of Saline Used [id number] -Bleeding Controlled with Pressure -Offloading No -Treatment Response Procedure Tolerated Well -Debridement - Subq, 1st 20sq cm No -Epifix (per sq cm) 4 #42- R MEDIAL FOOT -Time 12:00 -Correct Patient Yes -Correct Side, Site, Position Yes -Correct Procedure Yes -Procedure Performed Yes -Type of Procedure Debridement -Clinical Debridement Subcutaneous -Tissue Removed Subcutaneous -Post Debridement (cm) - Length 0.6 -Post Debridement (cm) - Width 0.8 -Post Debridement (cm) - Depth 0.1 -Total Square (Post) (cm) 0.48 -Area of Debridement (cm) - Length 0.6 -Area of Debridement (cm) - Width 0.8 -Total Square (Area) (cm) 0.48 -Tunneling No -Undermining/Tunneling No -Circular Undermining No -Wound/Ulcer Outcome Not Healed -Ulcer Cleansing Rinsed/ Irrigated with Saline -Foul Odor after Cleansing No -Bioengineered Tissue No -Bleeding Controlled with Pressure -Offloading Yes -Type of Offloading Surgical Shoe -Treatment Response Procedure Tolerated Well -Debridement - Subq, 1st 20sq cm No #37-right 2nd toe -Time 12:01 -Correct Patient Yes -Correct Side, Site, Position Yes -Correct Procedure Yes -Procedure Performed Yes -Type of Procedure Debridement -Clinical Debridement Subcutaneous -Tissue Removed Subcutaneous -Post Debridement (cm) - Length 0.5 -Post Debridement (cm) - Width 0.5 -Post Debridement (cm) - Depth 0.3 -Total Square (Post) (cm) 0.25 -Area of Debridement (cm) - Length 0.5 -Area of Debridement (cm) - Width 0.5 -Total Square (Area) (cm) 0.25 -Tunneling No -Undermining/Tunneling No -Circular Undermining No -Wound/Ulcer Outcome Not Healed -Ulcer Cleansing Rinsed/ Irrigated with Saline -Foul Odor after Cleansing No -Bioengineered Tissue Yes -Type of Bioengineered Tissue Epifix -Expiration Date 02/13/25 -Product Lot Number [id number] -Percent Used 100 -Lot number of Saline Used [id number] -Bleeding Controlled with Pressure -Offloading Yes -Type of Offloading Surgical Shoe -Treatment Response Procedure Tolerated Well -Debridement - Subq, 1st 20sq cm No -Apply Skin Sub - 1st 25 sq cm - Feet 0 -Epifix (per sq cm) 0 [See Physician Procedure note for Specifics] Pain Scale: 0-10 Numeric [Pain] -Is Patient Pain Free? Yes Musculoskeletal: No Tenderness to Palpation of Joints or Extremities, Muscle Wasting, - - Left below-knee amputation. Right hallux amputation Neurological: - - Lack of epicritic sensation to light touch is consistent with neuropathy Psych/Mental Status: Normal Affect, Appropriate Debridement Note Post-Debridement Measurements/Treatment WC - Nurse 2 - General Ulcer CM Notes Start: 06/20/20 10:56 Freq: Status: Active Protocol: Activity Type Activity Date Activity User E-Sign Co-Sign Detail Recorded Client Recorded Date Recorded By Document 06/20/20 11:20 [id number] 06/20/20 11:46 Document 06/27/20 11:54 [id number] 06/27/20 12:03 06/20/20 06/27/20 11:20 11:54 Wound Center Nurse 2 45-RIGHT 4TH TOE -Time 11:45 11:56 -Correct Patient Yes Yes -Correct Side, Site, Position Yes Yes -Correct Procedure Yes Yes -Procedure Performed Yes Yes -Type of Procedure Debridement Debridement -Clinical Debridement Subcutaneous Subcutaneous -Tissue Removed Subcutaneous Subcutaneous -Post Debridement (cm) - Length 1 0.4 -Post Debridement (cm) - Width 1 0.3 -Post Debridement (cm) - Depth 0.1 0.1 -Total Square (Post) (cm) 1 0.12 -Area of Debridement (cm) - Length 1 0.4 -Area of Debridement (cm) - Width 1 0.3 -Total Square (Area) (cm) 1 0.12 -Tunneling No No -Undermining/Tunneling No No -Circular Undermining No No -Wound/Ulcer Outcome Not Healed Not Healed -Ulcer Cleansing Rinsed/ Rinsed/ Irrigated with Irrigated with Saline Saline -Foul Odor after Cleansing No No -Bioengineered Tissue No No -Bleeding Controlled with Pressure Pressure -Offloading Yes Yes -Type of Offloading Surgical Shoe Surgical Shoe -Treatment Response Procedure Procedure Tolerated Well Tolerated Well -Debridement - Subq, 1st 20sq cm No Yes 44-right 3rd toe -Time 11:21 -Correct Patient No -Correct Side, Site, Position No -Correct Procedure No -Procedure Performed No -Post Debridement (cm) - Length 0 -Post Debridement (cm) - Width 0 -Post Debridement (cm) - Depth 0 -Total Square (Post) (cm) 0 -Area of Debridement (cm) - Length 0 -Area of Debridement (cm) - Width 0 -Total Square (Area) (cm) 0 -Tunneling No -Tunneling Position (O'clock) 0 -Undermining/Tunneling No -Circular Undermining No -Wound/Ulcer Outcome Healed- Epithelialized -Ulcer Cleansing Rinsed/ Irrigated with Saline -Foul Odor after Cleansing No -Bioengineered Tissue No -Bleeding Controlled with Pressure -Offloading Yes -Type of Offloading Surgical Shoe -Treatment Response Procedure Tolerated Well 39-right lateral foot -Time 11:21 11:58 -Correct Patient Yes Yes -Correct Side, Site, Position Yes Yes -Correct Procedure Yes Yes -Procedure Performed Yes Yes -Type of Procedure Debridement Debridement -Clinical Debridement Subcutaneous Subcutaneous -Tissue Removed Subcutaneous Subcutaneous -Post Debridement (cm) - Length 0.8 0.8 -Post Debridement (cm) - Width 0.5 0.6 -Post Debridement (cm) - Depth 0.1 0.2 -Total Square (Post) (cm) 0.40 0.48 -Area of Debridement (cm) - Length 0.8 0.8 -Area of Debridement (cm) - Width 0.5 0.6 -Total Square (Area) (cm) 0.40 0.48 -Tunneling No No -Undermining/Tunneling No No -Circular Undermining No No -Wound/Ulcer Outcome Not Healed Not Healed -Ulcer Cleansing Rinsed/ Rinsed/ Irrigated with Irrigated with Saline Saline -Foul Odor after Cleansing No No -Bioengineered Tissue No No -Bleeding Controlled with Pressure Pressure -Offloading Yes Yes -Type of Offloading Surgical Shoe Knee Walker -Treatment Response Procedure Tolerated Well -Debridement - Subq, 1st 20sq cm Yes No #35 L Stump -Time 11:22 11:59 -Correct Patient Yes Yes -Correct Side, Site, Position Yes Yes -Correct Procedure Yes Yes -Procedure Performed Yes Yes -Type of Procedure Debridement Debridement -Clinical Debridement Subcutaneous Subcutaneous -Tissue Removed Subcutaneous Subcutaneous -Post Debridement (cm) - Length 1 1 -Post Debridement (cm) - Width 1.6 1.8 -Post Debridement (cm) - Depth 0.5 0.2 -Total Square (Post) (cm) 1.6 1.8 -Area of Debridement (cm) - Length 1 1 -Area of Debridement (cm) - Width 1.6 1.8 -Total Square (Area) (cm) 1.6 1.8 -Tunneling No No -Undermining/Tunneling No No -Circular Undermining No No -Wound/Ulcer Outcome Not Healed Not Healed -Ulcer Cleansing Rinsed/ Rinsed/ Irrigated with Irrigated with Saline Saline -Foul Odor after Cleansing No No -Bioengineered Tissue Yes Yes -Type of Bioengineered Tissue Epifix Epifix -Expiration Date 02/13/25 02/13/25 -Product Lot Number [id number] -Percent Used 100 100 -Lot number of Saline Used [id number] -Bleeding Controlled with Pressure Pressure -Offloading No No -Treatment Response Procedure Procedure Tolerated Well Tolerated Well -Debridement - Subq, 1st 20sq cm No No -Apply Skin Sub - 1st 25 sq cm - Legs 1 -Epifix (per sq cm) 4 4 #42- R MEDIAL FOOT -Time 11:41 12:00 -Correct Patient Yes Yes -Correct Side, Site, Position Yes Yes -Correct Procedure Yes Yes -Procedure Performed Yes Yes -Type of Procedure Debridement Debridement -Clinical Debridement Subcutaneous Subcutaneous -Tissue Removed Subcutaneous Subcutaneous -Post Debridement (cm) - Length 0.8 0.6 -Post Debridement (cm) - Width 1.3 0.8 -Post Debridement (cm) - Depth 0.2 0.1 -Total Square (Post) (cm) 1.04 0.48 -Area of Debridement (cm) - Length 0.8 0.6 -Area of Debridement (cm) - Width 1.3 0.8 -Total Square (Area) (cm) 1.04 0.48 -Tunneling No No -Undermining/Tunneling No No -Circular Undermining No No -Wound/Ulcer Outcome Not Healed Not Healed -Ulcer Cleansing Rinsed/ Rinsed/ Irrigated with Irrigated with Saline Saline -Foul Odor after Cleansing No No -Bioengineered Tissue Yes No -Type of Bioengineered Tissue Epifix -Expiration Date 02/13/25 -Product Lot Number [id number] -Percent Used 100 -Lot number of Saline Used [id number] -Bleeding Controlled with Pressure Pressure -Offloading Yes Yes -Type of Offloading Surgical Shoe Surgical Shoe -Treatment Response Procedure Procedure Tolerated Well Tolerated Well -Debridement - Subq, 1st 20sq cm No No -Apply Skin Sub - 1st 25 sq cm - Legs 0 -Epifix (per sq cm) 0 #37-right 2nd toe -Time 11:43 12:01 -Correct Patient Yes Yes -Correct Side, Site, Position Yes Yes -Correct Procedure Yes Yes -Procedure Performed Yes Yes -Type of Procedure Debridement Debridement -Clinical Debridement Subcutaneous Subcutaneous -Tissue Removed Subcutaneous Subcutaneous -Post Debridement (cm) - Length 0.4 0.5 -Post Debridement (cm) - Width 0.5 0.5 -Post Debridement (cm) - Depth 0.5 0.3 -Total Square (Post) (cm) 0.20 0.25 -Area of Debridement (cm) - Length 0.4 0.5 -Area of Debridement (cm) - Width 0.5 0.5 -Total Square (Area) (cm) 0.20 0.25 -Tunneling No No -Undermining/Tunneling No No -Circular Undermining No No -Wound/Ulcer Outcome Not Healed Not Healed -Ulcer Cleansing Rinsed/ Rinsed/ Irrigated with Irrigated with Saline Saline -Foul Odor after Cleansing No No -Bioengineered Tissue Yes Yes -Type of Bioengineered Tissue Epifix Epifix -Expiration Date 02/13/25 02/13/25 -Product Lot Number [id number] -Percent Used 100 100 -Lot number of Saline Used [id number] -Bleeding Controlled with Pressure Pressure -Offloading Yes Yes -Type of Offloading Surgical Shoe Surgical Shoe -Treatment Response Procedure Procedure Tolerated Well Tolerated Well -Debridement - Subq, 1st 20sq cm No No -Apply Skin Sub - 1st 25 sq cm - Legs 0 -Apply Skin Sub - 1st 25 sq cm - Feet 0 -Epifix (per sq cm) 0 0 Pain Scale: 0-10 Numeric Is Patient Pain Free? Yes Yes WC - Nurse 3 - General Ulcer D/C NN Start: 06/20/20 10:56 Freq: Status: Active Protocol: Activity Type Activity Date Activity User E-Sign Co-Sign Detail Recorded Client Recorded Date Recorded By Document 06/20/20 11:50 DL [id number] 06/20/20 11:53 DL 06/20/20 11:50 Wound Care Nurse 3 45-RIGHT 4TH TOE -Ulcer Cleansing Rinsed/ Irrigated with Saline -Foul Odor after Cleansing No -Other Dressing dakins -Primary Dressing Covered/Secured with Dry Gauze & Roll Gauze, Secured with Tape 39-right lateral foot -Ulcer Cleansing Rinsed/ Irrigated with Saline -Foul Odor after Cleansing No -Other Dressing dakins -Primary Dressing Covered/Secured with Dry Gauze & Roll Gauze, Secured with Tape #35 L Stump -Foul Odor after Cleansing No -Other Dressing epifix -Primary Dressing Covered/Secured with Dry Gauze & Roll Gauze, Secured with Tape -Other Covering MATEUS #42- R MEDIAL FOOT -Foul Odor after Cleansing No -Other Dressing Epifix -Primary Dressing Covered/Secured with Dry Gauze & Roll Gauze, Secured with Tape #37-right 2nd toe -Foul Odor after Cleansing No -Other Dressing Epifix -Primary Dressing Covered/Secured with Dry Gauze & Roll Gauze, Secured with Tape Treatment Response Procedure Tolerated Well Pain Scale: 0-10 Numeric Is Patient Pain Free? Yes WC - Visit Discharge Discharge Condition Stable Ambulatory Status Wheelchair Transportation Private Auto Facility Type Home Health Orders Sent Yes Wound debrided: anterior leg Laterality: Left Wound Grade/Stage: grade 1 Type of Debridement: Excisional debridement Anesthesia Used: 5% Lidocaine Gel Depth: in the subcutaneous layer Percentage of wound debrided: 100 Instrument Used: #15 blade Tissue Removed: fibrous, devitalized subcuteanous, biofilm, slough Severity: Fat Layer Exposed Amount of bleeding with debridement: Mild Bleeding Controlled with: Pressure Assessment/Plan Active Problems Ulcer of right lower extremity with fat layer exposed (Chronic) Ulcer of right foot with necrosis of bone (Chronic) Delayed wound healing (Chronic) Type 2 diabetes mellitus with diabetic polyneuropathy (Chronic) Ulcer of left lower extremity with fat layer exposed (Chronic) Dehiscence of amputation stump (Chronic) Type 2 diabetes mellitus with diabetic polyneuropathy (Chronic) Assessment: Delayed healing left leg ulcer with fat layer exposed. second toe ulcer, with prior bone exposure (osteomyelitis; eldridge grade 3). third toe ulcer, healed. right dorsal fourth toe ulcer Eldridge grade 1, no infection. Right plantar lateral forefoot ulcer, eldridge grade 1, no infection. Right plantar medial forefoot ulcer, eldridge grade 1, no infection. Peripheral vascular disease. Diabetes with neuropathy. history of acute kidney injury. ambulation difficulty with left amputation and debility. Plan: I reviewed and discussed his case. His ulcer was debrided as noted in the clinical panel to the right foot and left leg in a subcutaneous excisional manner. He was previously diagnosed with osteomyelitis of the right second toe which is consistent firmed with pathology and microbiology bone biopsies. He completed a course of IV cefepime and oral flagyl for full 6 week treatment of osteomyelitis with infectious disease. To change all ulcer sites daily with Dakin wet-to-dry dressings. His prior microbiology bone growth was reviewed with the following: pseudomonas, strep, corynebacterium striatum, and anaerobic cocci. Labs from [facility] on 04-30-20 were also reviewed as the following: wbc 5.61, Cr 1.71, GFR 41, albumin 1.9, crp 16.1, ESR 89. His prior foot x-rays did not have soft tissue emphysema but there was disintegration of the distal second toe and his injury and now concern of infection site. He was advised to keep pressure off of the ulcer sites and a surgical shoe with heel weightbearing. To ambulate with his potential surgical shoe in place if able to as he presents today in automated wheelchair. To continue to optimize healing with improved glycemic index, continued weight reduction, and well-balanced [employer] nutrients. His hemoglobin A1c is significantly improved to 6.9%. To continue with edema management including his compression wraps and also lymphedema pumps. It is noted he has not been able to elevate as much this past week and has increased edema. Additional Mateus wrap was applied prior to Tubigrip application splint to help reduce stump edema. I recommend advanced wound healing probably application to the left leg due to his delayed healing. The indications, benefits, anticipated healing time and management were reviewed. This is medically necessary for limb salvage. He is already tried other basic and advanced treatments including surgical intervention. Epifix was applied after verbal consent according standard protocol. This was further secured with a wound veil and Steri-Strips. He was advised to keep this clean, dry, and intact until follow-up next week. He was advised that it is okay to take a shower as long as he does not disrupt the epifix graft. To return to clinic in 1 week or to call sooner if you have any questions or concerns. RTC at wound healing center next week. Note: [employer] speech recognition therapy assistant software was used to create portions of this document. Sound-alike and misspelled words, as well as other therapy assistant errors may be contained in the documentation.
[2020-07-11 11:29] VITALS: BP 170/74; PULSE 53; RESP 18; TEMP 36.6; BMI 43.2
--- NOTE | 2020-07-11 16:02 | PCM.PROGNOTE ---
Subjective Subjective: 65-year-old male with multiple comorbidities including diabetes follows up at the wound healing center today for left leg ulcer and multiple right foot ulcers. She denies fever, chill, nausea, vomiting. He kept his epifix advanced wound healing product intact to the left limb as advised. He is still trying to coordinate a home health visit including a shower. Objective Data Objective Data Vital Signs: Vital Signs Temp Pulse Resp BP 97.8 F 53 L 18 170/74 H 07/11/20 11:29 07/11/20 11:29 07/11/20 11:29 07/11/20 11:29 Body Mass Index (BMI) 43.2 Finger Stick Blood Glucose 169 Physical Exam Const alert and oriented x3 General Appearance: cooperative HEENT normocephalic Extremity normal capillary refill Extremity Narrative: no cyanosis, no calf tenderness, diminished pulses muscle wasting noted. no tenderness. Left below-knee amputation. Right hallux amputation. Bilateral lower extremities compartments remain soft. General Extremity: edema Skin Skin Narrative: no purulence, no erythema, no streaking, no odor, no infection. Adjacent skin is atrophic. No necrosis or maceration. Skin peeling to the anterior legs noted. 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 Code(s): L97.514 - Non-pressure chronic ulcer of other part of right foot with necrosis of bone (3) Delayed wound healing: Status: Chronic Code(s): T14.8XXD - Other injury of unspecified body region, subsequent encounter (4) Type 2 diabetes mellitus with diabetic polyneuropathy: Status: Chronic Code(s): E11.42 - Type 2 diabetes mellitus with diabetic polyneuropathy Qualifiers: Qualified Code(s): Z79.4 - group home (current) use of insulin (5) Ulcer of left lower extremity with fat layer exposed: Status: Chronic Code(s): L97.922 - Non-pressure chronic ulcer of unspecified part of left lower leg with fat layer exposed Plan: Procedure- Location: left leg Excisional debridement performed Grade 1 Anesthesia: 5% lidocaine plain Debridement layer: subcutaneous Amount of debridement: 100% Instrumentation used: 15 blade Tissue debrided: fibrous, devitalized subcutaneous, biofilm, slough Exposed tissue: fat layer Bleeding: mild Hemostasis controlled: pressure The patient tolerated the procedure well Procedure- Location:plantar lateral foot right, medial forefoot right Grade 1 Excisional debridement performed Anesthesia: 5% lidocaine plain Debridement layer: subcutaneous Amount of debridement: 100% Instrumentation used: 15 blade Tissue debrided: fibrous, devitalized subcutaneous, biofilm, slough Exposed tissue: fat layer Bleeding: mild Hemostasis controlled: pressure The patient tolerated the procedure well Procedure- Location: dorsal 2nd toe Grade 3 Excisional debridement performed Anesthesia: 5% lidocaine plain Debridement layer: subcutaneous Amount of debridement: 100% Instrumentation used: 15 blade Tissue debrided: fibrous, devitalized subcutaneous, biofilm, slough Exposed tissue: fat layer Bleeding: mild Hemostasis controlled: pressure The patient tolerated the procedure well I reviewed and discussed his case.? His ulcer was debrided as noted in the clinical panel to the right foot and left leg in a subcutaneous excisional manner.? Refer to clinical nursing panel for pre and post debridement measurements. He was previously diagnosed with osteomyelitis of the right second toe which is noted with pathology and microbiology bone biopsies.? He completed a course of IV cefepime and oral flagyl for full 6 week treatment of osteomyelitis with infectious disease.? To change all ulcer sites daily with Dakin wet-to-dry dressings. His prior microbiology bone growth was reviewed with the following: pseudomonas, strep, corynebacterium striatum, and anaerobic cocci.? Labs from [facility] on 04-30-20 were also reviewed as the following: wbc 5.61, Cr 1.71, GFR 41, albumin 1.9, crp 16.1, ESR 89.? His prior foot x-rays did not have soft tissue emphysema but there was disintegration of the distal second toe and his injury and now concern of infection site.? He was advised to keep pressure off of the ulcer sites and a surgical shoe with heel weightbearing.? To ambulate with his potential surgical shoe in place if able to as he presents today in automated wheelchair.? To continue to optimize healing with improved glycemic index, continued weight reduction, and well-balanced [employer] nutrients.? His hemoglobin A1c is significantly improved to 6.9%.? To continue with edema management including his compression wraps and also lymphedema pumps. ? It is noted he has not been able to elevate as much this past week and has increased edema.? Additional Mateus wrap was applied prior to Tubigrip application splint to help reduce stump edema.? I recommend advanced wound healing probably application to the left leg due to his delayed healing.? ? The indications, benefits, anticipated healing time and management were reviewed.? This is medically necessary for limb salvage.? He is already tried other basic and advanced treatments including surgical intervention. Epifix was applied after verbal consent according standard protocol.? This was further secured with a wound veil and Steri-Strips.? He was advised to keep this clean, dry, and intact until follow-up next week.? He was advised that it is okay to take a shower as long as he does not disrupt the epifix graft.? To return to clinic in 1 week or to call sooner if you have any questions or concerns.? RTC at wound healing center next week.? Note: [employer] speech recognition supervisor landscape software was used to create portions of this document. Sound-alike and misspelled words, as well as other supervisor landscape errors may be contained in the documentation.?
== END 2020-07-13 23:59 ==
LOC: WC 11:00
PROVIDERS: PCP Family Medicine; Visit Provider Podiatrist
DX: E11.621 Type 2 diabetes mellitus with foot ulcer (principal); E11.42 Type 2 diabetes mellitus with diabetic polyneuropathy; Y83.5 Amputation of limb(s) as the cause of abnormal reaction of the patient, or of later complication, without mention of misadventure at the time of the procedure; T87.81 Dehiscence of amputation stump; E11.622 Type 2 diabetes mellitus with other skin ulcer; L97.822 Non-pressure chronic ulcer of other part of left lower leg with fat layer exposed; L97.522 Non-pressure chronic ulcer of other part of left foot with fat layer exposed; L97.512 Non-pressure chronic ulcer of other part of right foot with fat layer exposed; E11.51 Type 2 diabetes mellitus with diabetic peripheral angiopathy without gangrene
CPT/HCPCS: 11042; 15271; 15275; Q4186

== ENCOUNTER 2020-08-08 11:00 | Outpatient (RCR) | payer MEDICARE, MEDICAID, SELFPAY ==
[2020-07-14 00:27] VITALS: BP 170/74; PULSE 53; RESP 18; TEMP 36.6
[2020-07-25 11:00] VITALS: BP 148/70; PULSE 84; RESP 18; TEMP 36.7; BMI 43.2
--- NOTE | 2020-07-25 11:28 | PCM.WC.PN ---
History of Present Illness Date of Service: 07/25/20 Chief Complaint: Ulcer left leg Right second toe ulcer with recent and recurrent injury and infection Right plantar lateral foot ulcer Right plantar medial foot ulcer History of Wound: This 65-year-old male had a left below-knee amputation performed with residual ulcer. He also has multiple right foot ulcers and a left leg ulcer, and has been performing dressing changes as advised. He was diagnosed with osteomyelitis of right second toe as well. He completed iv cefepime and flagyl for treatment of osteomyelitis with prior management of infectious disease specialist. He reports he is avoiding salt in the diet and using his compression pumps and wearing compression garments even though his swelling has increased to both lower extremities. He does occasionally wear Tubigrip. He is not able to follow-up next week because he has an eye appointment. Progress of Wound: Stable left and right foot ulcers Increased worsening size of right plantar lateral foot ulcer Objective Data Objective Data Vital Signs: Vital Signs Temp Pulse Resp BP 98.1 F 84 18 148/70 H 07/25/20 11:00 07/25/20 11:00 07/25/20 11:00 07/25/20 11:00 Body Mass Index (BMI) 43.2 Finger Stick Blood Glucose 169 Assessment & Plan Assessment/Plan (1) Ulcer of right foot with necrosis of bone: (2) Delayed wound healing: (3) Ulcer of right foot with fat layer exposed: (4) Nonhealing amputation stump: (5) Venous insufficiency: (6) Type 2 diabetes mellitus with diabetic polyneuropathy: QUALIFIERS: Qualified Code(s): Z79.4 - computer terminal operator (current) use of insulin (7) Ulcer of left lower extremity with fat layer exposed: PLAN: Procedure- Location: dorsal 2nd toe, right grade 3 Excisional debridement performed Anesthesia: 5% lidocaine plain Debridement layer: subcutaneous Amount of debridement: 100% Instrumentation used: 15 blade Tissue debrided: fibrous, devitalized subcutaneous, biofilm, slough Exposed tissue: fat layer Bleeding: mild Hemostasis controlled: pressure The patient tolerated the procedure well Procedure- Location: medial forefoot and plantar lateral forefoot, right grade 1 (both) Excisional debridement performed Anesthesia: 5% lidocaine plain Debridement layer: subcutaneous Amount of debridement: 100% Instrumentation used: 15 blade Tissue debrided: fibrous, devitalized subcutaneous, biofilm, slough Exposed tissue: fat layer Bleeding: mild Hemostasis controlled: pressure The patient tolerated the procedure well I reviewed and discussed his case. His ulcer was debrided as noted. He was previously diagnosed with osteomyelitis of the right second toe which is noted with pathology and microbiology bone biopsies. He completed a course of IV cefepime and oral flagyl for full 6 week treatment of osteomyelitis with infectious disease. He was reassured no local or systemic signs of illness are suspected today. To monitor. His prior microbiology bone growth was reviewed with the following: pseudomonas, strep, corynebacterium striatum, and anaerobic cocci. To change all ulcer sites daily with Dakin wet-to-dry dressings to lateral plantar right foot. Labs from [facility] on 04-30-20 were also reviewed as the following: wbc 5.61, Cr 1.71, GFR 41, albumin 1.9, crp 16.1, ESR 89. His hemoglobin A1c is significantly improved to 6.9%. His prior foot x-rays did not have soft tissue emphysema but there was disintegration of the distal second toe and his injury and now concern of infection site. He was advised to keep pressure off of the ulcer sites and a surgical shoe with heel weightbearing. To ambulate with his potential surgical shoe in place if able to as he presents today in automated wheelchair. To continue to optimize healing with improved glycemic index, continued weight reduction, and well-balanced [employer] nutrients. To continue with edema management including his compression wraps and also lymphedema pumps. It is noted he has not been able to elevate as much this past week and has increased edema. Additional Mateus wrap was applied prior to Tubigrip application splint to help reduce stump edema. To reduce salt in diet. I recommend advanced wound healing probably application to the left leg due to his delayed healing. The indications, benefits, anticipated healing time and management were reviewed. This is medically necessary for limb salvage. He is already tried other basic and advanced treatments including surgical intervention. Epifix was applied after verbal consent according standard protocol. This was further secured with a wound veil and Steri-Strips. He tolerated this well. He was advised to keep this clean, dry, and intact until follow-up next week. He was advised that it is okay to take a shower as long as he does not disrupt the epifix graft. To return to clinic in 1 week or to call sooner if you have any questions or concerns. He will not be able to return in 1 week. Therefore the nurses will apply hydrogel Aquacel Ag to the 1 week duration. Note: [employer] speech recognition burner tender software was used to create portions of this document. Sound-alike and misspelled words, as well as other burner tender errors may be contained in the documentation. Physical Exam Const alert and oriented x3 General Appearance: cooperative HEENT normocephalic Extremity Extremity Narrative: No calf tenderness Diminished pulses Muscle wasting noted General Extremity: edema and no tenderness to palpation of joints or extremities; Negative for cyanosis Skin Skin Narrative: no purulence, no streaking, no odor, no infection. Increased ulcer size plantar lateral foot with skin peeling. Granular base ulcers, all bilateral. Excessive skin peeling and scaling buildup noted General Skin Exam: Negative for erythema Neuro Neuro Narrative: lack of normal epicritic sensation via light touch is consistent with neuropathy status Psych cooperative and affect normal Debridement Note Debridement Note Post-Debridement Measurements and Additional Note: Post-Debridement Measurements/Treatment WC - Nurse 1 - General Ulcer Assessment Start: 07/25/20 11:00 Freq: Status: Active Protocol: SUSAN Activity Type Activity Date Activity User E-Sign Co-Sign Detail Recorded Client Recorded Date Recorded By Document 07/25/20 11:00 RB [id number] 07/25/20 11:11 RB 07/25/20 11:00 WC - Today's Visit Information Type of service Follow-up Visit (Physician/CLINICAL ADMISSIONS MANAGER ) Arrival Mode Wheelchair Transfer Assistance None Patient Identification Verified (Name & Yes ) Patient Requires Transmission-Based No Precautions Height and Weight Body Mass Index (BMI) 43.2 BMI Classification Obese Vital Signs Temperature (97.8 F-99.1 F) 98.1 F Temperature Source Temporal Pulse Rate (60-100) 84 Pulse Location Radial Respiratory Rate (12-18) 18 Respiratory rate source Observation Blood Pressure (90/60-120/80) 148/70 H Blood Pressure Mean (mm Hg) 96 Source Monitor Position Sitting Blood Pressure Location Left Arm History Since Last Visit- (Skip if this is Patient's initial visit) Have you changed medications since your No last visit? Any new allergies or adverse reactions No Had a fall/change in ADL's that may No increase risk of falls Signs or symptoms of abuse and/or No neglect since last visit Have you been in the hospital since your No last visit? Has dressing in place as prescribed Yes Has compression in place as prescribed Yes Has offloadiing in place as prescribed No Experienced any changes in pain level or No management WC - Nurse 1 - General Ulcer Measurement Start: 07/25/20 11:00 Freq: Status: Active Protocol: Activity Type Activity Date Activity User E-Sign Co-Sign Detail Recorded Client Recorded Date Recorded By Document 07/25/20 11:00 RB [id number] 07/25/20 11:11 FERNY 07/25/20 11:00 Wound Center Nurse 1 39-right lateral foot -Combined with other wound No -Current Size (cm) - Length 0.7 -Current Size (cm) - Width 0.4 -Current Size (cm) - Depth 0.4 -Total Square Cm 0.28 -Photo Taken No -Tunneling No -Undermining/Tunneling Yes -Undermining/Tunneling Starts (O'clock 3 ) -Undermining/Tunneling Ends (O'clock) 8 -Maximum Distance (cm) 0.6 -Exudate Amt Medium -Exudate Type Serosanguineous -Wound Margin Thickened & Rolled Under -Granulation Amt Medium (34-66%) -Granulation Quality [place] -Slough/Fibrin Yes -Necrosis Amt Small (1-33%) -Necrotic Tissue Type Adherent Slough -Structure Exposed N/A -Texture (Susy-wound Skin Appearance) Assessed -Moisture (Susy-wound Skin Appearance) Dry/Scaly -Color (Susy-wound Skin Appearance) Assessed -Temperature (Susy-wound Skin No Abnormality Appearance) (Pt Warm) -Tenderness on Palpation (Susy-wound No Skin Appearance) -Ulcer Cleansing Wound Cleanser -Foul Odor after Cleansing No -Anesthetic Used 4% Lidocaine Solution #35 L Stump -Combined with other wound No -Current Size (cm) - Length 0.8 -Current Size (cm) - Width 1.5 -Current Size (cm) - Depth 0.3 -Total Square Cm 1.20 -Tunneling No -Undermining/Tunneling No -Circular Undermining No -Exudate Amt Medium -Exudate Type Serosanguineous -Wound Margin Thickened & Rolled Under -Granulation Amt Small (1-33%) -Granulation Quality [place] -Slough/Fibrin Yes -Necrosis Amt Large (67-100%) -Necrotic Tissue Type Adherent Slough -Structure Exposed N/A -Texture (Susy-wound Skin Appearance) Assessed -Moisture (Susy-wound Skin Appearance) Dry/Scaly -Color (Susy-wound Skin Appearance) Assessed -Temperature (Susy-wound Skin No Abnormality Appearance) (Pt Warm) -Tenderness on Palpation (Susy-wound No Skin Appearance) -Ulcer Cleansing Wound Cleanser -Foul Odor after Cleansing No -Anesthetic Used 4% Lidocaine Solution #42- R MEDIAL FOOT -Combined with other wound No -Current Size (cm) - Length 0.8 -Current Size (cm) - Width 0.9 -Current Size (cm) - Depth 0.3 -Total Square Cm 0.72 -Tunneling No -Undermining/Tunneling No -Circular Undermining No -Exudate Amt Medium -Exudate Type Serosanguineous -Wound Margin Thickened & Rolled Under -Granulation Amt Medium (34-66%) -Granulation Quality [place] -Slough/Fibrin Yes -Necrosis Amt Large (67-100%) -Necrotic Tissue Type Adherent Slough -Structure Exposed N/A -Texture (Susy-wound Skin Appearance) Assessed -Moisture (Susy-wound Skin Appearance) Dry/Scaly -Color (Susy-wound Skin Appearance) Assessed -Temperature (Susy-wound Skin No Abnormality Appearance) (Pt Warm) -Tenderness on Palpation (Susy-wound No Skin Appearance) -Ulcer Cleansing Wound Cleanser -Foul Odor after Cleansing No -Anesthetic Used 4% Lidocaine Solution #37-right 2nd toe -Combined with other wound No -Current Size (cm) - Length 0.2 -Current Size (cm) - Width 0.2 -Current Size (cm) - Depth 0.4 -Total Square Cm 0.04 -Undermining/Tunneling Yes -Undermining/Tunneling Starts (O'clock 12 ) -Undermining/Tunneling Ends (O'clock) 12 -Maximum Distance (cm) 0.6 -Circular Undermining Yes -Exudate Amt Medium -Exudate Type Serosanguineous -Wound Margin Thickened & Rolled Under -Granulation Amt Medium (34-66%) -Granulation Quality [place] -Slough/Fibrin Yes -Necrosis Amt Small (1-33%) -Necrotic Tissue Type Adherent Slough -Structure Exposed N/A -Texture (Susy-wound Skin Appearance) Assessed -Moisture (Susy-wound Skin Appearance) Dry/Scaly -Color (Susy-wound Skin Appearance) Assessed -Temperature (Susy-wound Skin No Abnormality Appearance) (Pt Warm) -Tenderness on Palpation (Susy-wound No Skin Appearance) -Ulcer Cleansing Wound Cleanser -Foul Odor after Cleansing No -Anesthetic Used 4% Lidocaine Solution Lower Limb Edema Present Yes Right Calf (cm) 44 Right Ankle (cm) 30.5 Wound debrided: left leg Wound Grade/Stage: 1 Type of Debridement: Excisional debridement Anesthesia Used: 4% Lidocaine Solution Depth: in the subcutaneous layer Percentage of wound debrided: 100 Instrument Used: #15 blade Tissue Removed: fibrous, devitalized subcutaneous, biofilm, slough Severity: Fat Layer Exposed Amount of bleeding with debridement: Mild Bleeding Controlled with: Pressure Patient tolerated procedure: Patient tolerated procedure well
[2020-08-08 11:20] VITALS: BP 163/53; PULSE 64; RESP 22; TEMP 36.7; BMI 43.2
--- NOTE | 2020-08-08 12:17 | PN.PCM_ITS ---
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 He also has multiple right foot ulcers and a left leg ulcer, and has been performing dressing changes as advised. He was diagnosed with osteomyelitis of right second toe as well. He completed iv cefepime and flagyl for treatment of osteomyelitis with prior management of infectious disease specialist. He is trying to control his swelling however it is an ongoing struggle. He was still not able to take a shower again this past week. He denies fever, chill, nausea, vomiting, redness, or odor. He he did miss his last appointment due to a conflicting eye appointment at the same time. Progress of Wound: All improving bilateral Objective Data Objective Data Vital Signs: Vital Signs Temp Pulse Resp BP 98.1 F 64 22 H 163/53 H 08/08/20 11:20 08/08/20 11:20 08/08/20 11:20 08/08/20 11:20 Body Mass Index (BMI) 43.2 Physical Exam Const alert and oriented x3 General Appearance: cooperative HEENT normocephalic Extremity Extremity Narrative: No calf tenderness Diminished pulses Muscle wasting noted Left below-knee amputation Right hallux amputation General Extremity: edema and no tenderness to palpation of joints or extremities; Negative for cyanosis Skin Skin Narrative: no purulence, no streaking, no odor, no infection. Reduction in all ulcer size with visual evaluation. Ulcer bases are mainly granular with intermittent fibrous tissue. His skin is atrophic and hairless with excessive skin scaling and peeling likely due to lack of bathing activity General Skin Exam: Negative for erythema Neuro Neuro Narrative: lack of normal epicritic sensation via light touch is consistent with neuropathy status Psych cooperative and affect normal Debridement Note Debridement Note Post-Debridement Measurements and Additional Note: Post-Debridement Measurements/Treatment WC - Nurse 1 - General Ulcer Assessment Start: 07/25/20 11:00 Freq: Status: Active Protocol: SUSAN Activity Type Activity Date Activity User E-Sign Co-Sign Detail Recorded Client Recorded Date Recorded By Document 07/25/20 11:00 RB [id number] 07/25/20 11:11 RB Document 08/08/20 11:20 DL Desktop 08/08/20 11:35 DL 07/25/20 08/08/20 11:00 11:20 WC - Today's Visit Information Type of service Follow-up Visit (Physician/MACHINE OPERATOR HELPER ) Arrival Mode Wheelchair Stretcher Transfer Assistance None None Patient Identification Verified (Name & Yes Yes ) Patient Requires Transmission-Based No No Precautions Finger Stick Blood Sugar(mg/dl) (if 159 indicated): Blood Sugar Stated by Patient Height and Weight Body Mass Index (BMI) 43.2 43.2 BMI Classification Obese Obese Vital Signs Temperature (97.8 F-99.1 F) 98.1 F 98.1 F Temperature Source Temporal Temporal Pulse Rate (60-100) 84 64 Pulse Location Radial Monitor Respiratory Rate (12-18) 18 22 H Respiratory rate source Observation Observation Blood Pressure (90/60-120/80) 148/70 H 163/53 H Blood Pressure Mean (mm Hg) 96 89 Source Monitor Monitor Position Sitting Blood Pressure Location Left Arm History Since Last Visit- (Skip if this is Patient's initial visit) Have you changed medications since your No No last visit? Any new allergies or adverse reactions No No Had a fall/change in ADL's that may No No increase risk of falls Signs or symptoms of abuse and/or No No neglect since last visit Have you been in the hospital since your No No last visit? Has dressing in place as prescribed Yes Yes Has compression in place as prescribed Yes Yes Has offloadiing in place as prescribed No Yes Experienced any changes in pain level or No No management Left Footwear No Footwear Right Footwear Surgical Shoe with pressure relief insole Pain Scale: 0-10 Numeric Is Patient Pain Free? Yes - Nurse 1 - General Ulcer Measurement Start: 07/25/20 11:00 Freq: Status: Active Protocol: Activity Type Activity Date Activity User E-Sign Co-Sign Detail Recorded Client Recorded Date Recorded By Document 07/25/20 11:00 RB [id number] 07/25/20 11:11 RB Document 08/08/20 11:20 DL Desktop 08/08/20 11:35 DL 07/25/20 08/08/20 11:00 11:20 Wound Center Nurse 1 39-right lateral foot -Combined with other wound No -Current Size (cm) - Length 0.7 0.3 -Current Size (cm) - Width 0.4 0.3 -Current Size (cm) - Depth 0.4 0.1 -Total Square Cm 0.28 0.09 -Photo Taken No No -Tunneling No -Undermining/Tunneling Yes -Undermining/Tunneling Starts (O'clock 3 ) -Undermining/Tunneling Ends (O'clock) 8 -Maximum Distance (cm) 0.6 -Exudate Amt Medium Small -Exudate Type Serosanguineous Serosanguineous -Wound Margin Thickened & Distinct, Rolled Under Outline Attached -Granulation Amt Medium (34-66%) Small (1-33%) -Granulation Quality [place] [facility] -Slough/Fibrin Yes -Necrosis Amt Small (1-33%) Small (1-33%) -Necrotic Tissue Type Adherent Slough Adherent Slough -Structure Exposed N/A N/A -Texture (Susy-wound Skin Appearance) Assessed Scarring -Moisture (Susy-wound Skin Appearance) Dry/Scaly Dry/Scaly -Color (Susy-wound Skin Appearance) Assessed Hemosiderin Staining -Temperature (Susy-wound Skin No Abnormality No Abnormality Appearance) (Pt Warm) (Pt Warm) -Tenderness on Palpation (Susy-wound No No Skin Appearance) -Ulcer Cleansing Wound Cleanser Wound Cleanser -Foul Odor after Cleansing No No -Anesthetic Used 4% Lidocaine 4% Lidocaine Solution Solution #35 L Stump -Combined with other wound No -Current Size (cm) - Length 0.8 0.9 -Current Size (cm) - Width 1.5 1.3 -Current Size (cm) - Depth 0.3 0.2 -Total Square Cm 1.20 1.17 -Photo Taken No -Tunneling No -Undermining/Tunneling No -Circular Undermining No -Exudate Amt Medium Small -Exudate Type Serosanguineous -Wound Margin Thickened & Thickened Rolled Under -Granulation Amt Small (1-33%) Small (1-33%) -Granulation Quality [place] Pale,[place] [facility] -Slough/Fibrin Yes -Necrosis Amt Large (67-100%) Small (1-33%) -Necrotic Tissue Type Adherent Slough Adherent Slough -Structure Exposed N/A N/A -Texture (Susy-wound Skin Appearance) Assessed Scarring -Moisture (Susy-wound Skin Appearance) Dry/Scaly Dry/Scaly -Color (Susy-wound Skin Appearance) Assessed Hemosiderin Staining -Temperature (Susy-wound Skin No Abnormality No Abnormality Appearance) (Pt Warm) (Pt Warm) -Tenderness on Palpation (Susy-wound No No Skin Appearance) -Ulcer Cleansing Wound Cleanser Wound Cleanser -Foul Odor after Cleansing No No -Anesthetic Used 4% Lidocaine 4% Lidocaine Solution Solution #42- R MEDIAL FOOT -Combined with other wound No -Current Size (cm) - Length 0.8 0.8 -Current Size (cm) - Width 0.9 0.8 -Current Size (cm) - Depth 0.3 0.2 -Total Square Cm 0.72 0.64 -Photo Taken No -Tunneling No -Undermining/Tunneling No -Circular Undermining No -Exudate Amt Medium Small -Exudate Type Serosanguineous Serosanguineous -Wound Margin Thickened & Thickened Rolled Under -Granulation Amt Medium (34-66%) Large (67-100%) -Granulation Quality [place] [facility] -Slough/Fibrin Yes -Necrosis Amt Large (67-100%) Small (1-33%) -Necrotic Tissue Type Adherent Slough Adherent Slough -Structure Exposed N/A N/A -Texture (Susy-wound Skin Appearance) Assessed Scarring -Moisture (Susy-wound Skin Appearance) Dry/Scaly Dry/Scaly -Color (Susy-wound Skin Appearance) Assessed Hemosiderin Staining -Temperature (Susy-wound Skin No Abnormality No Abnormality Appearance) (Pt Warm) (Pt Warm) -Tenderness on Palpation (Susy-wound No No Skin Appearance) -Ulcer Cleansing Wound Cleanser Wound Cleanser -Foul Odor after Cleansing No No -Anesthetic Used 4% Lidocaine 4% Lidocaine Solution Solution #37-right 2nd toe -Combined with other wound No -Current Size (cm) - Length 0.2 0.2 -Current Size (cm) - Width 0.2 0.2 -Current Size (cm) - Depth 0.4 0.2 -Total Square Cm 0.04 0.04 -Photo Taken No -Undermining/Tunneling Yes -Undermining/Tunneling Starts (O'clock 12 ) -Undermining/Tunneling Ends (O'clock) 12 -Maximum Distance (cm) 0.6 -Circular Undermining Yes -Exudate Amt Medium Small -Exudate Type Serosanguineous Serosanguineous -Wound Margin Thickened & Distinct, Rolled Under Outline Attached -Granulation Amt Medium (34-66%) Small (1-33%) -Granulation Quality [place] [facility] -Slough/Fibrin Yes -Necrosis Amt Small (1-33%) Small (1-33%) -Necrotic Tissue Type Adherent Slough Adherent Slough -Structure Exposed N/A N/A -Texture (Susy-wound Skin Appearance) Assessed Localized Edema ,Scarring -Moisture (Susy-wound Skin Appearance) Dry/Scaly Dry/Scaly -Color (Susy-wound Skin Appearance) Assessed Hemosiderin Staining -Temperature (Susy-wound Skin No Abnormality No Abnormality Appearance) (Pt Warm) (Pt Warm) -Tenderness on Palpation (Susy-wound No No Skin Appearance) -Ulcer Cleansing Wound Cleanser Wound Cleanser -Foul Odor after Cleansing No No -Anesthetic Used 4% Lidocaine 4% Lidocaine Solution Solution Lower Limb Edema Present Yes Right Calf (cm) 44 41.3 Right Ankle (cm) 30.5 29.4 WC - Nurse 2 - General Ulcer CM Notes Start: 07/25/20 11:00 Freq: Status: Active Protocol: Activity Type Activity Date Activity User E-Sign Co-Sign Detail Recorded Client Recorded Date Recorded By Document 07/25/20 11:22 [id number] 07/25/20 11:34 Document 08/08/20 12:10 PL [id number] 08/08/20 12:14 [email or web address] 07/25/20 08/08/20 11:22 12:10 Wound Center Nurse 2 39-right lateral foot -Time 11:23 11:30 -Correct Patient Yes Yes -Correct Side, Site, Position Yes Yes -Correct Procedure Yes Yes -Procedure Performed Yes Yes -Type of Procedure Debridement Debridement -Clinical Debridement Subcutaneous Subcutaneous -Tissue Removed Subcutaneous Subcutaneous -Post Debridement (cm) - Length 0.8 0.3 -Post Debridement (cm) - Width 0.5 0.3 -Post Debridement (cm) - Depth 0.4 0.1 -Total Square (Post) (cm) 0.40 0.09 -Area of Debridement (cm) - Length 0.8 0.3 -Area of Debridement (cm) - Width 0.5 0.3 -Total Square (Area) (cm) 0.40 0.09 -Tunneling No No -Undermining/Tunneling No No -Circular Undermining No No -Wound/Ulcer Outcome Not Healed Not Healed -Ulcer Cleansing Rinsed/ Rinsed/ Irrigated with Irrigated with Saline Saline -Foul Odor after Cleansing No No -Bioengineered Tissue No No -Bleeding Controlled with Pressure -Offloading Yes -Type of Offloading Surgical Shoe -Treatment Response Procedure Tolerated Well -Debridement - Subq, 1st 20sq cm Yes Yes #35 L Stump -Time 11:24 11:30 -Correct Patient Yes Yes -Correct Side, Site, Position Yes Yes -Correct Procedure Yes Yes -Procedure Performed Yes Yes -Type of Procedure Debridement Debridement -Clinical Debridement Subcutaneous Subcutaneous -Tissue Removed Subcutaneous Subcutaneous -Post Debridement (cm) - Length 0.8 0.9 -Post Debridement (cm) - Width 1.6 1.3 -Post Debridement (cm) - Depth 0.3 0.2 -Total Square (Post) (cm) 1.28 1.17 -Area of Debridement (cm) - Length 0.8 0.9 -Area of Debridement (cm) - Width 1.6 1.3 -Total Square (Area) (cm) 1.28 1.17 -Tunneling No No -Undermining/Tunneling No No -Circular Undermining No No -Wound/Ulcer Outcome Not Healed Not Healed -Ulcer Cleansing Rinsed/ Rinsed/ Irrigated with Irrigated with Saline Saline -Foul Odor after Cleansing No No -Bioengineered Tissue Yes Yes -Type of Bioengineered Tissue Epifix Epifix -Expiration Date 04/16/25 -Product Lot Number [id number] -Percent Used 100 -Lot number of Saline Used [id number] -Bleeding Controlled with Pressure Pressure -Offloading No -Treatment Response Procedure Procedure Tolerated Well Tolerated Well -Debridement - Subq, 1st 20sq cm No No -Apply Skin Sub - 1st 25 sq cm - Legs 1 1 -Epifix (per sq cm) 4 4 #42- R MEDIAL FOOT -Time 11:26 11:30 -Correct Patient Yes Yes -Correct Side, Site, Position Yes Yes -Correct Procedure Yes Yes -Procedure Performed Yes Yes -Type of Procedure Debridement Debridement -Clinical Debridement Subcutaneous Subcutaneous -Tissue Removed Subcutaneous Subcutaneous -Post Debridement (cm) - Length 0.8 0.8 -Post Debridement (cm) - Width 1 0.8 -Post Debridement (cm) - Depth 0.3 0.2 -Total Square (Post) (cm) 0.8 0.64 -Area of Debridement (cm) - Length 0.8 0.8 -Area of Debridement (cm) - Width 1 0.8 -Total Square (Area) (cm) 0.8 0.64 -Tunneling No No -Undermining/Tunneling No No -Circular Undermining No No -Wound/Ulcer Outcome Not Healed Not Healed -Ulcer Cleansing Rinsed/ Rinsed/ Irrigated with Irrigated with Saline Saline -Foul Odor after Cleansing No No -Bioengineered Tissue Yes No -Type of Bioengineered Tissue Epifix -Expiration Date 04/16/25 -Product Lot Number [id number] -Percent Used 100 -Lot number of Saline Used [id number] -Bleeding Controlled with Pressure -Offloading Yes -Type of Offloading Surgical Shoe -Treatment Response Procedure Tolerated Well -Debridement - Subq, 1st 20sq cm No No -Epifix (per sq cm) 0 #37-right 2nd toe -Time 11:27 11:30 -Correct Patient Yes Yes -Correct Side, Site, Position Yes Yes -Correct Procedure Yes Yes -Procedure Performed Yes Yes -Type of Procedure Debridement Debridement -Clinical Debridement Subcutaneous Subcutaneous -Tissue Removed Subcutaneous Subcutaneous -Post Debridement (cm) - Length 0.2 0.2 -Post Debridement (cm) - Width 0.2 0.2 -Post Debridement (cm) - Depth 0.2 0.2 -Total Square (Post) (cm) 0.04 0.04 -Area of Debridement (cm) - Length 0.2 0.2 -Area of Debridement (cm) - Width 0.2 0.2 -Total Square (Area) (cm) 0.04 0.04 -Tunneling No No -Undermining/Tunneling No -Circular Undermining No No -Wound/Ulcer Outcome Not Healed Not Healed -Ulcer Cleansing Rinsed/ Rinsed/ Irrigated with Irrigated with Saline Saline -Foul Odor after Cleansing No No -Bioengineered Tissue No No -Bleeding Controlled with Pressure -Offloading Yes -Type of Offloading Surgical Shoe -Treatment Response Procedure Tolerated Well -Debridement - Subq, 1st 20sq cm No No Pain Scale: 0-10 Numeric Is Patient Pain Free? Yes Yes WC - Nurse 3 - General Ulcer D/C NN Start: 07/25/20 11:00 Freq: Status: Active Protocol: Activity Type Activity Date Activity User E-Sign Co-Sign Detail Recorded Client Recorded Date Recorded By Document 07/25/20 11:36 RB [id number] 07/25/20 11:38 RB 07/25/20 11:36 Wound Care Nurse 3 39-right lateral foot -Ulcer Cleansing Wound Cleanser -Other Dressing dakins moistened gauze -Primary Dressing Covered/Secured with Dry Gauze,Dry Gauze & Roll Gauze,Secured with Tape #35 L Stump -Primary Dressing Covered/Secured with Dry Gauze,Dry Gauze & Roll Gauze,Secured with Tape #42- R MEDIAL FOOT -Primary Dressing Covered/Secured with Dry Gauze,Dry Gauze & Roll Gauze,Secured with Tape #37-right 2nd toe -Primary Dressing Covered/Secured with Dry Gauze,Dry Gauze & Roll Gauze,Secured with Tape WC - Visit Discharge Discharge Condition Stable Ambulatory Status Wheelchair Transportation Private Auto Medication Reconcilliation completed & No provided to patient/care provider Clinical Summary of Care Provided Yes Wound debrided: left leg stump site Wound Grade/Stage: 1 Type of Debridement: Excisional debridement Anesthesia Used: 4% Lidocaine Solution Depth: in the subcutaneous layer Percentage of wound debrided: 100 Instrument Used: #15 blade Tissue Removed: fibrous, devitalized subcutaneous, biofilm, slough Severity: Fat Layer Exposed Amount of bleeding with debridement: Mild Bleeding Controlled with: Pressure Patient tolerated procedure: Patient tolerated procedure well Assessment/Plan Assessment/Plan (1) Ulcer of right foot with necrosis of bone: CODE(S): L97.514 - Non-pressure chronic ulcer of other part of right foot with necrosis of bone (2) Delayed wound healing: CODE(S): T14.8XXD - Other injury of unspecified body region, subsequent encounter (3) Ulcer of right foot with fat layer exposed: CODE(S): L97.512 - Non-pressure chronic ulcer of other part of right foot with fat layer exposed (4) Nonhealing amputation stump: CODE(S): T87.89 - Other complications of amputation stump (5) Venous insufficiency: CODE(S): I87.2 - Venous insufficiency (chronic) (peripheral) (6) Type 2 diabetes mellitus with diabetic polyneuropathy: CODE(S): E11.42 - Type 2 diabetes mellitus with diabetic polyneuropathy QUALIFIERS: Qualified Code(s): Z79.4 - custodial (current) use of insulin (7) Ulcer of left lower extremity with fat layer exposed: CODE(S): L97.922 - Non-pressure chronic ulcer of unspecified part of left lower leg with fat layer exposed PLAN: Procedure- Location: dorsal 2nd toe, right grade 3 Excisional debridement performed Anesthesia: 5% lidocaine plain Debridement layer: subcutaneous Amount of debridement: 100% Instrumentation used: 15 blade Tissue debrided: fibrous, devitalized subcutaneous, biofilm, slough Exposed tissue: fat layer Bleeding: mild Hemostasis controlled: pressure The patient tolerated the procedure well Procedure- Location: medial forefoot and plantar lateral forefoot, right grade 1 (both) Excisional debridement performed Anesthesia: 5% lidocaine plain Debridement layer: subcutaneous Amount of debridement: 100% Instrumentation used: 15 blade Tissue debrided: fibrous, devitalized subcutaneous, biofilm, slough Exposed tissue: fat layer Bleeding: mild Hemostasis controlled: pressure The patient tolerated the procedure well I reviewed and discussed his case. His ulcer sites were debrided as noted. He was previously diagnosed with osteomyelitis of the right second toe which is noted with pathology and microbiology bone biopsies. He completed a course of IV cefepime and oral flagyl for full 6 week treatment of osteomyelitis with infectious disease. He was reassured no local or systemic signs of illness are suspected today. To monitor. His prior microbiology bone growth was reviewed with the following: pseudomonas, strep, corynebacterium striatum, and anaerobic cocci. This is very stable from a clinical standpoint today with lack of local infection. To change all ulcer sites daily with Dakin wet-to-dry dressings to lateral plantar right foot. I advised him on the importance of improved lower extremity hygiene. He is unable to shower and has not been able to get this arranged with his home health agency for well over a month. I have placed an order for surgical scrub brushes and will help remove some of the peeling skin and presumed bioburden next week. Labs from [facility] on 04-30-20 were also reviewed as the following: wbc 5.61, Cr 1.71, GFR 41, albumin 1.9, crp 16.1, ESR 89. His hemoglobin A1c is significantly improved to 6.9%. His prior foot x-rays did not have soft tissue emphysema but there was disintegration of the distal second toe and his injury and now concern of infection site. He was advised to keep pressure off of the ulcer sites and a surgical shoe with heel weightbearing. To ambulate with his potential surgical shoe in place if able to as he presents today in automated wheelchair. To continue to optimize healing with improved glycemic index, continued weight reduction, and well-balanced [employer] nutrients. To continue with edema management including his compression wraps and also lymphedema pumps. It is noted he has not been able to elevate as much this past week and has increased edema. Additional Mateus wrap was applied prior to Tubigrip application splint to help reduce stump edema. To reduce salt in diet. I recommend advanced wound healing probably application to the left leg due to his delayed healing. The indications, benefits, anticipated healing time and management were reviewed. This is medically necessary for limb salvage. He is already tried other basic and advanced treatments including surgical intervention. Epifix was applied after verbal consent according standard pro tocol. This was further secured with a wound veil and Steri-Strips. He tolerated this well. He was advised to keep this clean, dry, and intact until follow-up next week. He was advised that it is okay to take a shower as long as he does not disrupt the epifix graft. To return to clinic in 1 week or to call sooner if you have any questions or concerns. Note: Sling speech recognition search and rescue officer software was used to create portions of this document. Sound-alike and misspelled words, as well as other search and rescue officer errors may be contained in the documentation.
== END 2020-08-13 23:59 ==
LOC: WC 11:00
PROVIDERS: PCP Family Medicine; Visit Provider Podiatrist
DX: E11.621 Type 2 diabetes mellitus with foot ulcer (principal); E11.622 Type 2 diabetes mellitus with other skin ulcer; E11.42 Type 2 diabetes mellitus with diabetic polyneuropathy; L97.822 Non-pressure chronic ulcer of other part of left lower leg with fat layer exposed; L97.522 Non-pressure chronic ulcer of other part of left foot with fat layer exposed; E11.51 Type 2 diabetes mellitus with diabetic peripheral angiopathy without gangrene; L97.512 Non-pressure chronic ulcer of other part of right foot with fat layer exposed; T87.81 Dehiscence of amputation stump; Y83.5 Amputation of limb(s) as the cause of abnormal reaction of the patient, or of later complication, without mention of misadventure at the time of the procedure
CPT/HCPCS: 11042; 15271; Q4186

== ENCOUNTER 2020-09-05 11:00 | Outpatient (RCR) | payer MEDICARE, MEDICAID, SELFPAY ==
[2020-08-14 00:17] VITALS: BP 163/53; PULSE 64; RESP 22; TEMP 36.7
[2020-08-22 11:10] VITALS: RESP 18; TEMP 37; BMI 43.2
--- NOTE | 2020-08-22 12:26 | PCM.WC.PN ---
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 He also has multiple right foot ulcers and a left leg ulcer, and has been performing dressing changes as advised. He was diagnosed with osteomyelitis of right second toe as well. He completed iv cefepime and flagyl for treatment of osteomyelitis with prior management of infectious disease specialist. He is trying to control his swelling however it is an ongoing struggle. He was still not able to take a shower again. He denies fever, chill, nausea, vomiting, redness, or odor. He missed his appointment due to diarrhea episode which is now resolved. He is scheduled to get eye surgery this upcoming week and a colonoscopy. Progress of Wound: All ulcers on right foot are healed Improved left Objective Data Objective Data Vital Signs: Vital Signs Temp Pulse Resp BP 98.6 F 64 18 163/53 H 08/22/20 11:10 08/14/20 00:17 08/22/20 11:10 08/14/20 00:17 Body Mass Index (BMI) 43.2 Physical Exam Const alert and oriented x3 General Appearance: cooperative HEENT normocephalic Extremity Extremity Narrative: No calf tenderness Diminished pulses Muscle wasting noted General Extremity: edema and no tenderness to palpation of joints or extremities; Negative for cyanosis Skin Skin Narrative: no purulence, no streaking, no odor, no infection. Granular pale base left ulcer. Full epithelialization to all ulcer sites are healed right foot. His skin is atrophic and hairless with significant skin peeling and skin buildup. Mild weeping to dorsal forefoot right. No bogginess or fluctuance on palpation General Skin Exam: Negative for erythema Neuro Neuro Narrative: lack of normal epicritic sensation via light touch is consistent with neuropathy status Psych cooperative and affect normal Debridement Note Debridement Note Post-Debridement Measurements and Additional Note: Post-Debridement Measurements/Treatment [id number] - Nurse 1 - General Ulcer Assessment Start: 08/22/20 11:10 Freq: Status: Active Protocol: SUSAN Activity Type Activity Date Activity User E-Sign Co-Sign Detail Recorded Client Recorded Date Recorded By Document 08/22/20 11:10 FERNY [id number] 08/22/20 11:32 RB 08/22/20 11:10 - Today's Visit Information Type of service Follow-up Visit (Physician/LIABILITY CLAIMS REPRESENTATIVE ) Arrival Mode Wheelchair Transfer Assistance None Patient Requires Transmission-Based No Precautions Height and Weight Body Mass Index (BMI) 43.2 BMI Classification Obese Vital Signs Temperature (97.8 F-99.1 F) 98.6 F Temperature Source Temporal Pulse Location Monitor Respiratory Rate (12-18) 18 Respiratory rate source Ausculation Source Monitor Position Sitting Blood Pressure Location Left Arm History Since Last Visit- (Skip if this is Patient's initial visit) Have you changed medications since your No last visit? Any new allergies or adverse reactions No Had a fall/change in ADL's that may No increase risk of falls Have you been in the hospital since your No last visit? Has dressing in place as prescribed Yes Has compression in place as prescribed Yes Has offloadiing in place as prescribed No Experienced any changes in pain level or No management Pain Scale: 0-10 Numeric Is Patient Pain Free? Yes - Nurse 1 - General Ulcer Measurement Start: 08/22/20 11:10 Freq: Status: Active Protocol: Activity Type Activity Date Activity User E-Sign Co-Sign Detail Recorded Client Recorded Date Recorded By Document 08/22/20 11:10 RB [id number] 08/22/20 11:32 RB Edit Result 08/22/20 11:10 RB (1) [id number] 08/22/20 11:33 RB (1) Lower Limb Edema Present => Yes Right Calf (cm) => 40.5 Right Ankle (cm) => 30.5 Left Calf (cm) => 54 08/22/20 11:10 Wound Center Nurse 1 39-right lateral foot -Combined with other wound No -Current Size (cm) - Length 0.1 -Current Size (cm) - Width 0.1 -Current Size (cm) - Depth 0.1 -Total Square Cm 0.01 -Tunneling No -Undermining/Tunneling No -Circular Undermining No -Exudate Amt Small -Exudate Type Serosanguineous -Wound Margin Distinct, Outline Attached -Granulation Amt Medium (34-66%) -Granulation Quality Susank -Slough/Fibrin Yes -Necrosis Amt Small (1-33%) -Necrotic Tissue Type Adherent Slough -Structure Exposed N/A -Texture (Susy-wound Skin Appearance) Assessed -Moisture (Susy-wound Skin Appearance) Dry/Scaly -Color (Susy-wound Skin Appearance) Assessed -Temperature (Susy-wound Skin No Abnormality Appearance) (Pt Warm) -Tenderness on Palpation (Susy-wound No Skin Appearance) -Ulcer Cleansing Wound Cleanser -Foul Odor after Cleansing No -Anesthetic Used 4% Lidocaine Solution #35 L Stump -Current Size (cm) - Length 1.4 -Current Size (cm) - Width 2 -Current Size (cm) - Depth 0.4 -Total Square Cm 2.8 -Tunneling No -Undermining/Tunneling No -Circular Undermining No -Exudate Amt Medium -Exudate Type Serosanguineous -Wound Margin Thickened -Granulation Amt Medium (34-66%) -Granulation Quality Susank -Slough/Fibrin Yes -Necrosis Amt Medium (34-66%) -Necrotic Tissue Type Adherent Slough -Structure Exposed N/A -Texture (Susy-wound Skin Appearance) Assessed -Moisture (Susy-wound Skin Appearance) Maceration -Color (Susy-wound Skin Appearance) Assessed -Temperature (Susy-wound Skin No Abnormality Appearance) (Pt Warm) -Tenderness on Palpation (Susy-wound No Skin Appearance) -Ulcer Cleansing Wound Cleanser -Foul Odor after Cleansing No -Anesthetic Used 4% Lidocaine Solution #42- R MEDIAL FOOT -Combined with other wound No -Current Size (cm) - Length 0.1 -Current Size (cm) - Width 0.1 -Current Size (cm) - Depth 0.1 -Total Square Cm 0.01 -Tunneling No -Undermining/Tunneling No -Circular Undermining No -Exudate Amt Medium -Exudate Type Serosanguineous -Wound Margin Distinct, Outline Attached -Granulation Amt Medium (34-66%) -Granulation Quality Susank -Slough/Fibrin Yes -Necrosis Amt Small (1-33%) -Necrotic Tissue Type Adherent Slough -Structure Exposed N/A -Texture (Susy-wound Skin Appearance) Assessed -Moisture (Susy-wound Skin Appearance) Dry/Scaly -Color (Susy-wound Skin Appearance) Assessed -Temperature (Susy-wound Skin No Abnormality Appearance) (Pt Warm) -Tenderness on Palpation (Susy-wound No Skin Appearance) -Ulcer Cleansing Wound Cleanser -Foul Odor after Cleansing No -Anesthetic Used 4% Lidocaine Solution #37-right 2nd toe -Current Size (cm) - Length 0.1 -Current Size (cm) - Width 0.1 -Current Size (cm) - Depth 0.1 -Total Square Cm 0.01 -Tunneling No -Undermining/Tunneling No -Circular Undermining No -Exudate Amt Medium -Exudate Type Serosanguineous -Wound Margin Thickened & Rolled Under -Granulation Amt Medium (34-66%) -Granulation Quality Susank -Slough/Fibrin Yes -Necrosis Amt Small (1-33%) -Necrotic Tissue Type Adherent Slough -Structure Exposed N/A -Texture (Susy-wound Skin Appearance) Assessed, Localized Edema -Moisture (Susy-wound Skin Appearance) Dry/Scaly -Color (Susy-wound Skin Appearance) Assessed -Temperature (Susy-wound Skin No Abnormality Appearance) (Pt Warm) -Tenderness on Palpation (Susy-wound No Skin Appearance) -Ulcer Cleansing Wound Cleanser -Foul Odor after Cleansing No -Anesthetic Used 4% Lidocaine Solution Lower Limb Edema Present Yes Right Calf (cm) 40.5 Right Ankle (cm) 30.5 Left Calf (cm) 54 WC - Nurse 2 - General Ulcer CM Notes Start: 08/22/20 11:10 Freq: Status: Active Protocol: Activity Type Activity Date Activity User E-Sign Co-Sign Detail Recorded Client Recorded Date Recorded By Document 08/22/20 11:39 NORRIS [id number] 08/22/20 11:55 NORRIS 08/22/20 11:39 Wound Center Nurse 2 39-right lateral foot -Time 11:40 -Correct Patient No -Correct Side, Site, Position No -Correct Procedure No -Procedure Performed No -Tissue Removed Subcutaneous -Post Debridement (cm) - Length 0 -Post Debridement (cm) - Width 0 -Post Debridement (cm) - Depth 0 -Total Square (Post) (cm) 0 -Area of Debridement (cm) - Length 0 -Area of Debridement (cm) - Width 0 -Total Square (Area) (cm) 0 -Tunneling No -Undermining/Tunneling No -Circular Undermining No -Wound/Ulcer Outcome Not Healed -Ulcer Cleansing Rinsed/ Irrigated with Saline -Foul Odor after Cleansing No -Bioengineered Tissue No -Bleeding Controlled with Pressure -Offloading No -Treatment Response Procedure Tolerated Well -Debridement - Subq, 1st 20sq cm No #35 L Stump -Time 11:49 -Correct Patient Yes -Correct Side, Site, Position Yes -Correct Procedure Yes -Procedure Performed Yes -Type of Procedure Debridement -Clinical Debridement Subcutaneous -Tissue Removed Subcutaneous -Post Debridement (cm) - Length 1.5 -Post Debridement (cm) - Width 2 -Post Debridement (cm) - Depth 0.4 -Total Square (Post) (cm) 3.0 -Area of Debridement (cm) - Length 1.5 -Area of Debridement (cm) - Width 2 -Total Square (Area) (cm) 3.0 -Tunneling No -Undermining/Tunneling No -Circular Undermining No -Wound/Ulcer Outcome Not Healed -Ulcer Cleansing Rinsed/ Irrigated with Saline -Foul Odor after Cleansing No -Bioengineered Tissue Yes -Type of Bioengineered Tissue Epifix -Expiration Date 05/14/25 -Product Lot Number [id number] -Percent Used 100 -Lot number of Saline Used [id number] -Bleeding Controlled with Pressure -Offloading No -Treatment Response Procedure Tolerated Well -Debridement - Subq, 1st 20sq cm No -Apply Skin Sub - 1st 25 sq cm - Legs 1 -Epifix (per sq cm) 4 #42- R MEDIAL FOOT -Correct Patient No -Correct Side, Site, Position No -Correct Procedure No -Procedure Performed No -Post Debridement (cm) - Length 0 -Post Debridement (cm) - Width 0 -Post Debridement (cm) - Depth 0 -Total Square (Post) (cm) 0 -Area of Debridement (cm) - Length 0 -Area of Debridement (cm) - Width 0 -Total Square (Area) (cm) 0 -Wound/Ulcer Outcome Healed- Epithelialized #37-right 2nd toe -Correct Patient No -Correct Side, Site, Position No -Correct Procedure No -Procedure Performed No -Post Debridement (cm) - Length 0 -Post Debridement (cm) - Width 0 -Post Debridement (cm) - Depth 0 -Total Square (Post) (cm) 0 -Area of Debridement (cm) - Length 0 -Area of Debridement (cm) - Width 0 -Total Square (Area) (cm) 0 -Wound/Ulcer Outcome Healed- Epithelialized Pain Scale: 0-10 Numeric Is Patient Pain Free? Yes WC - Nurse 3 - General Ulcer D/C NN Start: 08/22/20 11:10 Freq: Status: Active Protocol: Activity Type Activity Date Activity User E-Sign Co-Sign Detail Recorded Client Recorded Date Recorded By Document 08/22/20 11:55 NORRIS [id number] 08/22/20 11:56 NORRIS 08/22/20 11:55 Wound Care Nurse 3 #35 L Stump -Ulcer Cleansing Rinsed/ Irrigated with Saline -Foul Odor after Cleansing No -Primary Dressing Covered/Secured with Dry Gauze & Roll Gauze, Secured with Tape Pain Scale: 0-10 Numeric Is Patient Pain Free? Yes WC - Visit Discharge Discharge Condition Stable Ambulatory Status Wheelchair Transportation Private Auto Medication Reconcilliation completed & Yes provided to patient/care provider Clinical Summary of Care Provided Yes Wound debrided: left leg Wound Grade/Stage: 1 Type of Debridement: Excisional debridement Anesthesia Used: 4% Lidocaine Solution Depth: in the subcutaneous layer Percentage of wound debrided: 100 Instrument Used: #15 blade Tissue Removed: fibrous, devitalized subcutaneous, biofilm, slough Severity: Fat Layer Exposed Amount of bleeding with debridement: Mild Bleeding Controlled with: Pressure Patient tolerated procedure: Patient tolerated procedure well Assessment/Plan Assessment/Plan (1) Ulcer of left lower extremity with fat layer exposed: CODE(S): L97.922 - Non-pressure chronic ulcer of unspecified part of left lower leg with fat layer exposed (2) Ulcer of right foot with fat layer exposed: CODE(S): L97.512 - Non-pressure chronic ulcer of other part of right foot with fat layer exposed (3) Delayed wound healing: CODE(S): T14.8XXD - Other injury of unspecified body region, subsequent encounter (4) Nonhealing amputation stump: CODE(S): T87.89 - Other complications of amputation stump (5) Lymphedema: CODE(S): I89.0 - Lymphedema, not elsewhere classified (6) Venous insufficiency: CODE(S): I87.2 - Venous insufficiency (chronic) (peripheral) (7) Maceration of skin: CODE(S): L98.8 - Other specified disorders of the skin and subcutaneous tissue (8) Type 2 diabetes mellitus with diabetic polyneuropathy: CODE(S): E11.42 - Type 2 diabetes mellitus with diabetic polyneuropathy QUALIFIERS: Qualified Code(s): Z79.4 - helminthologist (current) use of insulin PLAN: I reviewed and discussed his case. His ulcer was debrided as noted. He was previously diagnosed with osteomyelitis of the right second toe which is noted with pathology and microbiology bone biopsies. He completed a course of IV cefepime and oral flagyl for full 6 week treatment of osteomyelitis with infectious disease. He was reassured no local or systemic signs of illness are suspected today. To monitor. His prior microbiology bone growth was reviewed with the following: pseudomonas, strep, corynebacterium striatum, and anaerobic cocci. All right foot ulcers are healed today. He does have some maceration to the crease to the medial foot that does not have an open wound. He does have some maceration to the dorsal forefoot which also is not a formal wound. I recommend applying a dry gauze dressing and to continue to aggressively address his edema management. His edema is reduced from last week but still needs to be managed. [facility] from [facility] on 04-30-20 were also reviewed as the following: wbc 5.61, Cr 1.71, GFR 41, albumin 1.9, crp 16.1, ESR 89. His hemoglobin A1c is significantly improved to 6.9%. His prior foot x-rays did not have soft tissue emphysema but there was disintegration of the distal second toe and his injury and now concern of infection site. To continue with right lower extremity surgical shoe. Extra-depth diabetic shoes will be considered after his maceration and edema are controlled. To continue with automated wheelchair. To continue to optimize healing with improved glycemic index, continued weight reduction, and well-balanced [employer] nutrients. To continue with edema management including his compression wraps and also lymphedema pumps. It is noted he has not been able to elevate as much this past week and has increased edema. Additional Mateus wrap was applied prior to Tubigrip application splint to help reduce stump edema. To reduce salt in diet. Prior to dressing application, surgical scrub brushes, Hibiclens and soap and water used to wash his lower extremities because he has not been able to obtain a shower for an extended period of time. This was used to remove some of the skin peeling and to optimize a periwound clean zone. I recommend advanced wound healing probably application to the left leg due to his delayed healing. The indications, benefits, anticipated healing time and management were reviewed. This is medically necessary for limb salvage. He is already tried other basic and advanced treatments including surgical intervention. Epifix was applied after verbal consent according standard protocol. This was further secured with a wound veil and Steri-Strips. 100% of the product was utilized. He tolerated this well. He was advised to keep this clean, dry, and intact until follow-up next week. He was advised that it is okay to take a shower as long as he does not disrupt the epifix graft. He was advised to keep epi fix in place for 1 week and then switch over to Aquacel Ag. His other appointments and procedures scheduled for next week are noted. Therefore, he will return in 2 weeks at the wound healing center. To call sooner if he has any problems or development of infection. Note: [employer] speech recognition asset protection officer software was used to create portions of this document. Sound-alike and misspelled words, as well as other asset protection officer errors may be contained in the documentation. The medical decision making level is low. There is noted low risk of morbidity after considering this treatment plan and diagnostic data. The problems addressed require a low medical decision making level which includes two or more minor problems, a stable chronic illness, or an acute uncomplicated illness or injury.
[2020-09-05 11:23] VITALS: BP 179/73; PULSE 56; RESP 18; TEMP 36.3; BMI 43.2
--- NOTE | 2020-09-05 12:03 | PCM.WC.PN ---
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 He also has multiple right foot ulcers and a left leg ulcer, and has been performing dressing changes as advised. He bumped his right foot about 1-1/2 weeks ago and has a new opening at his second toe. He denies fever, chill, nausea, vomiting, redness, or odor. He is scheduled to get eye surgery tomorrow. Progress of Wound: New right foot ulcer Stable left leg ulcer Objective Data Objective Data Vital Signs: Vital Signs Temp Pulse Resp BP 97.3 F L 56 L 18 179/73 H 09/05/20 11:23 09/05/20 11:23 09/05/20 11:23 09/05/20 11:23 Body Mass Index (BMI) 43.2 Physical Exam Const alert and oriented x3 General Appearance: cooperative HEENT normocephalic Extremity Extremity Narrative: No calf tenderness Diminished pulses Muscle wasting noted Left below-knee amputation Right hallux amputation Edema mild to moderate bilateral lower extremities and this is reduced compared to recent prior visits General Extremity: edema and no tenderness to palpation of joints or extremities; Negative for cyanosis Skin Skin Narrative: no purulence, no streaking, no odor, no infection. Granular pale base left ulcer. Full epithelialization to all ulcer sites are healed right foot. His skin is atrophic and hairless with significant skin peeling and skin buildup. There is new skin discontinuity to the heel right second toe with pale granular base no deep tissue exposure. No bogginess or fluctuance on palpation General Skin Exam: Negative for erythema Neuro Neuro Narrative: lack of normal epicritic sensation via light touch is consistent with neuropathy status Psych cooperative and affect normal Debridement Note Debridement Note Post-Debridement Measurements and Additional Note: Post-Debridement Measurements/Treatment [id number] - Nurse 1 - General Ulcer Assessment Start: 08/22/20 11:10 Freq: Status: Active Protocol: SUSAN Activity Type Activity Date Activity User E-Sign Co-Sign Detail Recorded Client Recorded Date Recorded By Document 08/22/20 11:10 RB [id number] 08/22/20 11:32 RB Document 09/05/20 11:23 RB [id number] 09/05/20 11:25 RB 08/22/20 09/05/20 11:10 11:23 - Today's Visit Information Type of service Follow-up Visit Follow-up Visit (Physician/[facility] PARAPROFESSIONAL (Physician/[facility] PARAPROFESSIONAL ) ) Arrival Mode Wheelchair Wheelchair Transfer Assistance None None Patient Identification Verified (Name & Yes ) Patient Requires Transmission-Based No No Precautions Height and Weight Body Mass Index (BMI) 43.2 43.2 BMI Classification Obese Obese Vital Signs Temperature (97.8 F-99.1 F) 98.6 F 97.3 F L Temperature Source Temporal Temporal Pulse Rate (60-100) 56 L Pulse Location Monitor Monitor Respiratory Rate (12-18) 18 18 Respiratory rate source Ausculation Observation Blood Pressure (90/60-120/80) 179/73 H Blood Pressure Mean (mm Hg) 108 Source Monitor Monitor Position Sitting Sitting Blood Pressure Location Left Arm Left Arm History Since Last Visit- (Skip if this is Patient's initial visit) Have you changed medications since your No No last visit? Any new allergies or adverse reactions No No Had a fall/change in ADL's that may No No increase risk of falls Signs or symptoms of abuse and/or No neglect since last visit Have you been in the hospital since your No No last visit? Has dressing in place as prescribed Yes Yes Has compression in place as prescribed Yes Yes Has offloadiing in place as prescribed No No Experienced any changes in pain level or No No management Pain Scale: 0-10 Numeric Is Patient Pain Free? Yes Yes - Nurse 1 - General Ulcer Measurement Start: 08/22/20 11:10 Freq: Status: Active Protocol: Activity Type Activity Date Activity User E-Sign Co-Sign Detail Recorded Client Recorded Date Recorded By Document 08/22/20 11:10 RB [id number] 08/22/20 11:32 RB Edit Result 08/22/20 11:10 RB (1) [id number] 08/22/20 11:33 RB Document 09/05/20 11:23 RB [id number] 09/05/20 11:25 RB (1) Lower Limb Edema Present => Yes Right Calf (cm) => 40.5 Right Ankle (cm) => 30.5 Left Calf (cm) => 54 08/22/20 09/05/20 11:10 11:23 Wound Center Nurse 1 39-right lateral foot -Combined with other wound No -Current Size (cm) - Length 0.1 -Current Size (cm) - Width 0.1 -Current Size (cm) - Depth 0.1 -Total Square Cm 0.01 -Tunneling No -Undermining/Tunneling No -Circular Undermining No -Exudate Amt Small -Exudate Type Serosanguineous -Wound Margin Distinct, Outline Attached -Granulation Amt Medium (34-66%) -Granulation Quality [place] -Slough/Fibrin Yes -Necrosis Amt Small (1-33%) -Necrotic Tissue Type Adherent Slough -Structure Exposed N/A -Texture (Susy-wound Skin Appearance) Assessed -Moisture (Susy-wound Skin Appearance) Dry/Scaly -Color (Susy-wound Skin Appearance) Assessed -Temperature (Susy-wound Skin No Abnormality Appearance) (Pt Warm) -Tenderness on Palpation (Susy-wound No Skin Appearance) -Ulcer Cleansing Wound Cleanser -Foul Odor after Cleansing No -Anesthetic Used 4% Lidocaine Solution #35 L Stump -Combined with other wound No -Current Size (cm) - Length 1.4 0.7 -Current Size (cm) - Width 2 3 -Current Size (cm) - Depth 0.4 0.2 -Total Square Cm 2.8 2.1 -Tunneling No No -Undermining/Tunneling No No -Circular Undermining No No -Exudate Amt Medium Medium -Exudate Type Serosanguineous Serosanguineous -Wound Margin Thickened Thickened & Rolled Under -Granulation Amt Medium (34-66%) Medium (34-66%) -Granulation Quality [place] -Slough/Fibrin Yes Yes -Necrosis Amt Medium (34-66%) Small (1-33%) -Necrotic Tissue Type Adherent Slough Adherent Slough -Structure Exposed N/A N/A -Texture (Susy-wound Skin Appearance) Assessed Assessed, Excoriation -Moisture (Susy-wound Skin Appearance) Maceration Assessed -Color (Susy-wound Skin Appearance) Assessed Assessed -Temperature (Susy-wound Skin No Abnormality No Abnormality Appearance) (Pt Warm) (Pt Warm) -Tenderness on Palpation ([place]ssy-wound No No Skin Appearance) -Ulcer Cleansing Wound Cleanser Wound Cleanser -Foul Odor after Cleansing No No -Anesthetic Used 4% Lidocaine 4% Lidocaine Solution Solution #42- R MEDIAL FOOT -Combined with other wound No -Current Size (cm) - Length 0.1 -Current Size (cm) - Width 0.1 -Current Size (cm) - Depth 0.1 -Total Square Cm 0.01 -Tunneling No -Undermining/Tunneling No -Circular Undermining No -Exudate Amt Medium -Exudate Type Serosanguineous -Wound Margin Distinct, Outline Attached -Granulation Amt Medium (34-66%) -Granulation Quality [place] -Slough/Fibrin Yes -Necrosis Amt Small (1-33%) -Necrotic Tissue Type Adherent Slough -Structure Exposed N/A -Texture (Susy-wound Skin Appearance) Assessed -Moisture (Susy-wound Skin Appearance) Dry/Scaly -Color (Susy-wound Skin Appearance) Assessed -Temperature (Susy-wound Skin No Abnormality Appearance) (Pt Warm) -Tenderness on Palpation (Susy-wound No Skin Appearance) -Ulcer Cleansing Wound Cleanser -Foul Odor after Cleansing No -Anesthetic Used 4% Lidocaine Solution #37-right 2nd toe -Current Size (cm) - Length 0.1 -Current Size (cm) - Width 0.1 -Current Size (cm) - Depth 0.1 -Total Square Cm 0.01 -Tunneling No -Undermining/Tunneling No -Circular Undermining No -Exudate Amt Medium -Exudate Type Serosanguineous -Wound Margin Thickened & Rolled Under -Granulation Amt Medium (34-66%) -Granulation Quality [place] -Slough/Fibrin Yes -Necrosis Amt Small (1-33%) -Necrotic Tissue Type Adherent Slough -Structure Exposed N/A -Texture (Susy-wound Skin Appearance) Assessed, Localized Edema -Moisture (Susy-wound Skin Appearance) Dry/Scaly -Color (Susy-wound Skin Appearance) Assessed -Temperature ([place]-wound Skin No Abnormality Appearance) (Pt Warm) -Tenderness on Palpation (Susy-wound No Skin Appearance) -Ulcer Cleansing Wound Cleanser -Foul Odor after Cleansing No -Anesthetic Used 4% Lidocaine Solution Lower Limb Edema Present Yes Right Calf (cm) 40.5 Right Ankle (cm) 30.5 Left Calf (cm) 54 WC - Nurse 2 - General Ulcer CM Notes Start: 08/22/20 11:10 Freq: Status: Active Protocol: Activity Type Activity Date Activity User E-Sign Co-Sign Detail Recorded Client Recorded Date Recorded By Document 08/22/20 11:39 [id number] 08/22/20 11:55 Document 09/05/20 11:33 [id number] 09/05/20 11:45 JF 08/22/20 09/05/20 11:39 11:33 Wound Center Nurse 2 46-right 2nd toe -Time 11:37 -Correct Patient Yes -Correct Side, Site, Position Yes -Correct Procedure Yes -Procedure Performed Yes -Type of Procedure Debridement -Clinical Debridement Subcutaneous -Tissue Removed Subcutaneous -Post Debridement (cm) - Length 1.5 -Post Debridement (cm) - Width 1 -Post Debridement (cm) - Depth 0.1 -Total Square (Post) (cm) 1.5 -Area of Debridement (cm) - Length 1.5 -Area of Debridement (cm) - Width 1 -Total Square (Area) (cm) 1.5 -Tunneling No -Undermining/Tunneling No -Circular Undermining No -Wound/Ulcer Outcome Not Healed -Ulcer Cleansing Rinsed/ Irrigated with Saline -Foul Odor after Cleansing No -Bioengineered Tissue No -Bleeding Controlled with Pressure -Offloading Yes -Type of Offloading Surgical Shoe -Treatment Response Procedure Tolerated Well -Debridement - Subq, 1st 20sq cm Yes 39-right lateral foot -Time 11:40 -Correct Patient No -Correct Side, Site, Position No -Correct Procedure No -Procedure Performed No -Tissue Removed Subcutaneous -Post Debridement (cm) - Length 0 -Post Debridement (cm) - Width 0 -Post Debridement (cm) - Depth 0 -Total Square (Post) (cm) 0 -Area of Debridement (cm) - Length 0 -Area of Debridement (cm) - Width 0 -Total Square (Area) (cm) 0 -Tunneling No -Undermining/Tunneling No -Circular Undermining No -Wound/Ulcer Outcome Not Healed -Ulcer Cleansing Rinsed/ Irrigated with Saline -Foul Odor after Cleansing No -Bioengineered Tissue No -Bleeding Controlled with Pressure -Offloading No -Treatment Response Procedure Tolerated Well -Debridement - Subq, 1st 20sq cm No #35 L Stump -Time 11:49 11:34 -Correct Patient Yes Yes -Correct Side, Site, Position Yes Yes -Correct Procedure Yes Yes -Procedure Performed Yes Yes -Type of Procedure Debridement Debridement -Clinical Debridement Subcutaneous Subcutaneous -Tissue Removed Subcutaneous Subcutaneous -Post Debridement (cm) - Length 1.5 0.8 -Post Debridement (cm) - Width 2 3 -Post Debridement (cm) - Depth 0.4 0.2 -Total Square (Post) (cm) 3.0 2.4 -Area of Debridement (cm) - Length 1.5 0.8 -Area of Debridement (cm) - Width 2 3 -Total Square (Area) (cm) 3.0 2.4 -Tunneling No No -Undermining/Tunneling No No -Circular Undermining No No -Wound/Ulcer Outcome Not Healed Not Healed -Ulcer Cleansing Rinsed/ Rinsed/ Irrigated with Irrigated with Saline Saline -Foul Odor after Cleansing No No -Bioengineered Tissue Yes Yes -Type of Bioengineered Tissue Epifix Epifix 18mm Disc -Expiration Date 05/14/25 -Product Lot Number [id number] -Percent Used 100 -Lot number of Saline Used [id number] -Bleeding Controlled with Pressure Pressure -Offloading No No -Treatment Response Procedure Procedure Tolerated Well Tolerated Well -Debridement - Subq, 1st 20sq cm No No -Apply Skin Sub - 1st 25 sq cm - Legs 1 -Epifix (per sq cm) 4 -Epifix 18mm Disc 3 #42- R MEDIAL FOOT -Correct Patient No -Correct Side, Site, Position No -Correct Procedure No -Procedure Performed No -Post Debridement (cm) - Length 0 -Post Debridement (cm) - Width 0 -Post Debridement (cm) - Depth 0 -Total Square (Post) (cm) 0 -Area of Debridement (cm) - Length 0 -Area of Debridement (cm) - Width 0 -Total Square (Area) (cm) 0 -Wound/Ulcer Outcome Healed- Epithelialized #37-right 2nd toe -Correct Patient No -Correct Side, Site, Position No -Correct Procedure No -Procedure Performed No -Post Debridement (cm) - Length 0 -Post Debridement (cm) - Width 0 -Post Debridement (cm) - Depth 0 -Total Square (Post) (cm) 0 -Area of Debridement (cm) - Length 0 -Area of Debridement (cm) - Width 0 -Total Square (Area) (cm) 0 -Wound/Ulcer Outcome Healed- Epithelialized Pain Scale: 0-10 Numeric Is Patient Pain Free? Yes Yes WC - Nurse 3 - General Ulcer D/C NN Start: 08/22/20 11:10 Freq: Status: Active Protocol: Activity Type Activity Date Activity User E-Sign Co-Sign Detail Recorded Client Recorded Date Recorded By Document 08/22/20 11:55 NORRIS [id number] 08/22/20 11:56 Document 09/05/20 11:57 DL [id number] 09/05/20 11:58 DL 08/22/20 09/05/20 11:55 11:57 Wound Care Nurse 3 46-right 2nd toe -Ulcer Cleansing Wound Cleanser -Foul Odor after Cleansing No -Primary Dressing Applied Aquacel Extra -Primary Dressing Covered/Secured with Dry Gauze,Dry Gauze & Roll Gauze,Secured with Tape -Aquacel Extra 1 #35 L Stump -Ulcer Cleansing Rinsed/ Irrigated with Saline -Foul Odor after Cleansing No No -Other Dressing EpiFix -Primary Dressing Covered/Secured with Dry Gauze & Dry Gauze & Roll Gauze, Roll Gauze, Secured with Secured with Tape Tape Treatment Response Procedure Tolerated Well Pain Scale: 0-10 Numeric Is Patient Pain Free? Yes WC - Visit Discharge Discharge Condition Stable Stable Ambulatory Status Wheelchair Ambulatory Transportation Private Auto Medication Reconcilliation completed & Yes provided to patient/care provider Clinical Summary of Care Provided Yes Facility Type Home Health Orders Sent Yes Wound debrided: left leg Wound Grade/Stage: 1 Type of Debridement: Excisional debridement Anesthesia Used: 4% Lidocaine Solution Depth: in the subcutaneous layer Percentage of wound debrided: 100 Instrument Used: #15 blade Tissue Removed: fibrous, devitalized subcutaneous, biofilm, slough Severity: Fat Layer Exposed Amount of bleeding with debridement: Mild Bleeding Controlled with: Pressure Patient tolerated procedure: Patient tolerated procedure well Assessment/Plan Assessment/Plan (1) Ulcer of left lower extremity with fat layer exposed: CODE(S): L97.922 - Non-pressure chronic ulcer of unspecified part of left lower leg with fat layer exposed (2) Ulcer of right foot with fat layer exposed: CODE(S): L97.512 - Non-pressure chronic ulcer of other part of right foot with fat layer exposed (3) Delayed wound healing: CODE(S): T14.8XXD - Other injury of unspecified body region, subsequent encounter (4) Nonhealing amputation stump: CODE(S): T87.89 - Other complications of amputation stump (5) Lymphedema: CODE(S): I89.0 - Lymphedema, not elsewhere classified (6) Venous insufficiency: CODE(S): I87.2 - Venous insufficiency (chronic) (peripheral) (7) Maceration of skin: CODE(S): L98.8 - Other specified disorders of the skin and subcutaneous tissue (8) Type 2 diabetes mellitus with diabetic polyneuropathy: CODE(S): E11.42 - Type 2 diabetes mellitus with diabetic polyneuropathy QUALIFIERS: Qualified Code(s): Z79.4 - terminal carman (current) use of insulin PLAN: Procedure- Location: right medial second toe grade 1 Excisional debridement performed Anesthesia: 5% lidocaine plain Debridement layer: subcutaneous Amount of debridement: 100% Instrumentation used: 15 blade Tissue debrided: fibrous, devitalized subcutaneous, biofilm, slough Exposed tissue: fat layer Bleeding: mild Hemostasis controlled: pressure The patient tolerated the procedure well I reviewed and discussed his case. His ulcer was debrided as noted. His new ulcer site is noted he was reassured no local signs of infection are seen. The site was debrided. To change dressing with Aquacel. Labs from [facility] on 04-30-20 were also reviewed as the following: wbc 5.61, Cr 1.71, GFR 41, albumin 1.9, crp 16.1, ESR 89. His hemoglobin A1c is significantly improved to 6.9%. His prior foot x-rays did not have soft tissue emphysema but there was disintegration of the distal second toe and his injury and now concern of infection site. To continue with right lower extremity surgical shoe. Extra-depth diabetic shoes will be considered after his maceration, ulcer healed, and edema are controlled. To continue with automated wheelchair. To continue to optimize healing with improved glycemic index, continued weight reduction, and well-balanced [employer] nutrients. To continue with edema management including his compression wraps and also lymphedema pumps. It is noted he has not been able to elevate as much this past week and has increased edema. Additional [place]us wrap was applied prior to Tubigrip application splint to help reduce stump edema. To reduce salt in diet. I recommend advanced wound healing probably application to the left leg due to his delayed healing. The left leg was debrided as noted. The indications, benefits, anticipated healing time and management were reviewed. This is medically necessary for limb salvage. He is already tried other basic and advanced treatments including surgical intervention. Epifix was applied after verbal consent according standard protocol. This was further secured with a wound veil and Steri-Strips. 100% of the product was utilized. He tolerated this well. He was advised to keep this clean, dry, and intact until follow-up next week. He was advised that it is okay to take a shower as long as he does not disrupt the epifix graft. He was advised to keep epi fix in place for 1 week and then switch over to Aquacel. Note: [employer] speech recognition filter changer software was used to create portions of this document. Sound-alike and misspelled words, as well as other filter changer errors may be contained in the documentation. The medical decision making level is low. There is noted low risk of morbidity after considering this treatment plan and diagnostic data. The problems addressed require a low medical decision making level which includes two or more minor problems, a stable chronic illness, or an acute uncomplicated illness or injury.
== END 2020-09-12 23:59 ==
LOC: WC 11:00
PROVIDERS: PCP Family Medicine; Visit Provider Podiatrist
DX: E11.622 Type 2 diabetes mellitus with other skin ulcer (principal); L97.822 Non-pressure chronic ulcer of other part of left lower leg with fat layer exposed; I89.0 Lymphedema, not elsewhere classified; I87.2 Venous insufficiency (chronic) (peripheral); E11.42 Type 2 diabetes mellitus with diabetic polyneuropathy; Z79.4 Long term (current) use of insulin; E11.621 Type 2 diabetes mellitus with foot ulcer; L97.512 Non-pressure chronic ulcer of other part of right foot with fat layer exposed
CPT/HCPCS: 11042; 15271; Q4186

== ENCOUNTER 2020-10-03 11:00 | Outpatient (RCR) | payer MEDICARE, MEDICAID, SELFPAY ==
[2020-09-13 00:16] VITALS: BP 179/73; PULSE 56; RESP 18; TEMP 36.3
[2020-09-19 11:09] VITALS: BP 171/54; PULSE 44; RESP 16; TEMP 36.2; BMI 43.2
--- NOTE | 2020-09-19 12:09 | PN.PCM_ITS ---
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 He also has multiple right foot ulcers and a left leg ulcer, and has been performing dressing changes as advised. He denies fever, chill, nausea, vomiting, redness, or odor. He reports there is increased drainage that has a green discoloration. He is still not able to take shower and trying to get home health to help him. He completed a course of epi fix recently to the left leg stump site. Progress of Wound: New ulcers right foot Left leg stable Objective Data Objective Data Vital Signs: Vital Signs Temp Pulse Resp BP 97.2 F L 44 L 16 171/54 H 09/19/20 11:09/19/20 11:09 09/19/20 11:09 09/19/20 11:09 Oxygen Delivery Method Room Air Body Mass Index (BMI) 43.2 Physical Exam Const alert and oriented x3 General Appearance: cooperative HEENT normocephalic Extremity Extremity Narrative: No calf tenderness Diminished pulses Muscle wasting noted General Extremity: edema and no tenderness to palpation of joints or extremities; Negative for cyanosis Skin Skin Narrative: no purulence, no streaking, no odor, no infection. Skin discontinuity to medial right forefoot is new (recurrent), and medial second toe. Skin peeling to the dorsal foot with maceration and greenish colored drainage to the dressings. There is also skin discontinuity with granular base to the proximal lateral right leg. Left leg stump site ulcer has granular and fibrous base also General Skin Exam: Negative for erythema Neuro Neuro Narrative: lack of normal epicritic sensation via light touch is consistent with neuropathy status Psych cooperative and affect normal Debridement Note Debridement Note Post-Debridement Measurements and Additional Note: Post-Debridement Measurements/Treatment - Nurse 1 - General Ulcer Assessment Start: 09/19/20 11:09 Freq: Status: Active Protocol: SUSAN Activity Type Activity Date Activity User E-Sign Co-Sign Detail Recorded Client Recorded Date Recorded By Document 09/19/20 11:09 [facility] [id number] 09/19/20 11:29 [facility] 09/19/20 11:09 - Today's Visit Information Type of service Follow-up Visit (Physician/MANAGER OF HOSPITAL ) Arrival Mode Wheelchair Transfer Assistance None Patient Identification Verified (Name & Yes ) Patient Requires Transmission-Based No Precautions Finger Stick Blood Sugar(mg/dl) (if 113 indicated): Blood Sugar Stated by Patient Height and Weight Body Mass Index (BMI) 43.2 BMI Classification Obese Vital Signs Temperature (97.8 F-99.1 F) 97.2 F L Temperature Source Temporal Pulse Rate (60-100) 44 L Pulse Location Monitor Respiratory Rate (12-18) 16 Respiratory rate source Observation Oxygen Delivery Method Room Air Blood Pressure (90/60-120/80) 171/54 H Blood Pressure Mean (mm Hg) 93 Source Monitor Position Sitting Blood Pressure Location Right Arm History Since Last Visit- (Skip if this is Patient's initial visit) Have you changed medications since your No last visit? Any new allergies or adverse reactions No Had a fall/change in ADL's that may No increase risk of falls Signs or symptoms of abuse and/or No neglect since last visit Have you been in the hospital since your No last visit? Has dressing in place as prescribed Yes Has compression in place as prescribed Yes Has offloadiing in place as prescribed N/A Experienced any changes in pain level or No management Left Footwear Surgical Shoe with pressure relief insole Pain Scale: 0-10 Numeric Is Patient Pain Free? Yes WC - Nurse 1 - General Ulcer Measurement Start: 09/19/20 11:09 Freq: Status: Active Protocol: Activity Type Activity Date Activity User E-Sign Co-Sign Detail Recorded Client Recorded Date Recorded By Document 09/19/20 11:09 [facility] [id number] 09/19/20 11:29 [facility] 09/19/20 11:09 Wound Center Nurse 1 #48- R DORSAL FOOT -Combined with other wound No -Current Size (cm) - Length 4 -Current Size (cm) - Width 8.2 -Current Size (cm) - Depth 0.1 -Total Square Cm 32.8 -Date of Last Picture (Recall this 09/19/20 field) -Photo Taken Yes -Epithelialization None Present -Tunneling No -Undermining/Tunneling No -Circular Undermining No -Exudate Amt Large -Exudate Type Yellow/Green -Wound Margin Flat & Intact -Granulation Amt Large (67-100%) -Granulation Quality [place] -Slough/Fibrin Yes -Necrosis Amt Medium (34-66%) -Necrotic Tissue Type Adherent Slough -Texture (Susy-wound Skin Appearance) Assessed, Excoriation, Scarring -Moisture (Susy-wound Skin Appearance) Assessed, Maceration, Weeping,Dry/ Scaly -Color (Susy-wound Skin Appearance) Assessed, Erythema,Palor -Temperature (Susy-wound Skin No Abnormality Appearance) (Pt Warm) -Tenderness on Palpation (Susy-wound No Skin Appearance) -Ulcer Cleansing SOAP;Y WATER -Foul Odor after Cleansing No -Anesthetic Used 4% Lidocaine Solution #47- R SUPERIOR CALF -Combined with other wound No -Current Size (cm) - Length 2 -Current Size (cm) - Width 2.2 -Current Size (cm) - Depth 0.1 -Total Square Cm 4.4 -Date of Last Picture (Recall this 09/19/20 field) -Photo Taken Yes -Epithelialization None Present -Tunneling No -Undermining/Tunneling No -Circular Undermining No -Exudate Amt Medium -Exudate Type Sanguineous -Wound Margin Flat & Intact -Granulation Amt Large (67-100%) -Granulation Quality Red -Slough/Fibrin No -Necrosis Amt None Present (0 %) -Texture (Susy-wound Skin Appearance) Assessed, Scarring -Moisture (Susy-wound Skin Appearance) Assessed -Color (Susy-wound Skin Appearance) Assessed -Temperature (Susy-wound Skin No Abnormality Appearance) (Pt Warm) -Tenderness on Palpation (Susy-wound No Skin Appearance) -Ulcer Cleansing SOAPY WATER -Foul Odor after Cleansing No -Anesthetic Used 5% Lidocaine Gel 46-right 2nd toe -Combined with other wound No -Current Size (cm) - Length 1.3 -Current Size (cm) - Width 1.6 -Current Size (cm) - Depth 0.1 -Total Square Cm 2.08 -Photo Taken No -Epithelialization None Present -Tunneling No -Undermining/Tunneling No -Circular Undermining No -Exudate Amt Medium -Exudate Type Yellow/Green -Wound Margin Distinct, Outline Attached -Granulation Amt Large (67-100%) -Granulation Quality Red -Slough/Fibrin No -Necrosis Amt None Present (0 %) -Texture (Susy-wound Skin Appearance) Assessed, Scarring -Moisture (Susy-wound Skin Appearance) Assessed,Dry/ Scaly -Color (Susy-wound Skin Appearance) Assessed, Erythema -Temperature (Susy-wound Skin No Abnormality Appearance) (Pt Warm) -Tenderness on Palpation (Susy-wound No Skin Appearance) -Ulcer Cleansing SOAPY WTER -Foul Odor after Cleansing No -Anesthetic Used 4% Lidocaine Solution #35 L Stump -Combined with other wound No -Current Size (cm) - Length 1 -Current Size (cm) - Width 1.8 -Current Size (cm) - Depth 0.3 -Total Square Cm 1.8 -Photo Taken No -Epithelialization None Present -Tunneling No -Undermining/Tunneling No -Circular Undermining No -Exudate Amt Medium -Exudate Type Yellow/Green -Wound Margin Thickened -Granulation Amt Small (1-33%) -Granulation Quality [place] -Slough/Fibrin Yes -Necrosis Amt Large (67-100%) -Necrotic Tissue Type Adherent Slough -Texture (Susy-wound Skin Appearance) Assessed, Scarring -Moisture (Susy-wound Skin Appearance) Assessed, Maceration,Dry/ Scaly -Color (Susy-wound Skin Appearance) Assessed,Palor -Temperature (Susy-wound Skin No Abnormality Appearance) (Pt Warm) -Tenderness on Palpation (Susy-wound No Skin Appearance) -Ulcer Cleansing SOAPY WTER -Foul Odor after Cleansing No -Anesthetic Used 5% Lidocaine Gel WC - Nurse 2 - General Ulcer CM Notes Start: 09/19/20 11:09 Freq: Status: Active Protocol: Activity Type Activity Date Activity User E-Sign Co-Sign Detail Recorded Client Recorded Date Recorded By Document 09/19/20 11:36 NORRIS [id number] 09/19/20 11:42 NORRIS 09/19/20 11:36 Wound Center Nurse 2 #47- R SUPERIOR CALF -Time 11:37 -Correct Patient Yes -Correct Side, Site, Position Yes -Correct Procedure Yes -Procedure Performed Yes -Type of Procedure Debridement -Clinical Debridement Subcutaneous -Tissue Removed Subcutaneous -Post Debridement (cm) - Length 2.1 -Post Debridement (cm) - Width 2.2 -Post Debridement (cm) - Depth 0.1 -Total Square (Post) (cm) 4.62 -Area of Debridement (cm) - Length 2.1 -Area of Debridement (cm) - Width 2.2 -Total Square (Area) (cm) 4.62 -Tunneling No -Undermining/Tunneling No -Circular Undermining No -Wound/Ulcer Outcome Not Healed -Ulcer Cleansing Rinsed/ Irrigated with Saline -Foul Odor after Cleansing No -Bioengineered Tissue No -Bleeding Controlled with Pressure -Offloading No -Treatment Response Procedure Tolerated Well -Debridement - Subq, 1st 20sq cm No 46-right 2nd toe -Time 11:38 -Correct Patient Yes -Correct Side, Site, Position Yes -Correct Procedure Yes -Procedure Performed Yes -Type of Procedure Debridement -Clinical Debridement Subcutaneous -Tissue Removed Subcutaneous -Post Debridement (cm) - Length 1.4 -Post Debridement (cm) - Width 1.6 -Post Debridement (cm) - Depth 0.1 -Total Square (Post) (cm) 2.24 -Area of Debridement (cm) - Length 1.4 -Area of Debridement (cm) - Width 1.6 -Total Square (Area) (cm) 2.24 -Tunneling No -Undermining/Tunneling No -Circular Undermining No -Wound/Ulcer Outcome Not Healed -Ulcer Cleansing Rinsed/ Irrigated with Saline -Foul Odor after Cleansing No -Bioengineered Tissue No -Bleeding Controlled with Pressure -Offloading Yes -Type of Offloading Surgical Shoe -Treatment Response Procedure Tolerated Well -Debridement - Subq, 20sq cm No #35 L Stump -Time 11:39 -Correct Patient Yes -Correct Side, Site, Position Yes -Correct Procedure Yes -Procedure Performed Yes -Type of Procedure Debridement -Clinical Debridement Subcutaneous -Tissue Removed Subcutaneous -Post Debridement (cm) - Length 1.1 -Post Debridement (cm) - Width 1.8 -Post Debridement (cm) - Depth 0.3 -Total Square (Post) (cm) 1.98 -Area of Debridement (cm) - Length 1.1 -Area of Debridement (cm) - Width 1.8 -Total Square (Area) (cm) 1.98 -Tunneling No -Undermining/Tunneling No -Circular Undermining No -Wound/Ulcer Outcome Not Healed -Ulcer Cleansing Rinsed/ Irrigated with Saline -Foul Odor after Cleansing No -Bioengineered Tissue No -Bleeding Controlled with Pressure -Offloading No -Treatment Response Procedure Tolerated Well -Debridement - Subq, 1st 20sq cm Yes #42- R MEDIAL FOOT -Time 11:40 -Correct Patient Yes -Correct Side, Site, Position Yes -Correct Procedure Yes -Procedure Performed Yes -Type of Procedure Debridement -Clinical Debridement Subcutaneous -Tissue Removed Subcutaneous -Post Debridement (cm) - Length 0.6 -Post Debridement (cm) - Width 1.5 -Post Debridement (cm) - Depth 0.2 -Total Square (Post) (cm) 0.90 -Area of Debridement (cm) - Length 0.6 -Area of Debridement (cm) - Width 1.5 -Total Square (Area) (cm) 0.90 -Tunneling No -Undermining/Tunneling No -Circular Undermining No -Wound/Ulcer Outcome Not Healed -Ulcer Cleansing Rinsed/ Irrigated with Saline -Foul Odor after Cleansing No -Bioengineered Tissue No -Bleeding Controlled with Pressure -Offloading No -Treatment Response Procedure Tolerated Well -Debridement - Subq, 1st 20sq cm No Pain Scale: 0-10 Numeric Is Patient Pain Free? Yes - Nurse 3 - General Ulcer D/C NN Start: 09/19/20 11:09 Freq: Status: Active Protocol: Activity Type Activity Date Activity User E-Sign Co-Sign Detail Recorded Client Recorded Date Recorded By Document 09/19/20 11:52 [id number] 09/19/20 11:55 09/19/20 11:52 Wound Care Nurse 3 #47- R SUPERIOR CALF -Other Dressing DAKINS SOLUTION -Primary Dressing Covered/Secured with Dry Gauze,Dry Gauze & Roll Gauze,Secured with Tape 46-right 2nd toe -Other Dressing DAKINS SOLUTION -Primary Dressing Covered/Secured with Dry Gauze,Dry Gauze & Roll Gauze,Secured with Tape #35 L Stump -Other Dressing DAKINS SOLUTION -Primary Dressing Covered/Secured with Dry Gauze,Dry Gauze & Roll Gauze,Secured with Tape #42- R MEDIAL FOOT -Other Dressing DAKINS SOLUTION -Primary Dressing Covered/Secured with Dry Gauze,Dry Gauze & Roll Gauze,Secured with Tape Treatment Response Procedure Tolerated Well Pain Scale: 0-10 Numeric Is Patient Pain Free? Yes - Visit Discharge Discharge Condition Stable Ambulatory Status Ambulatory Transportation Private Auto Medication Reconcilliation completed & No provided to patient/care provider Clinical Summary of Care Provided Yes Wound debrided: left leg Wound Grade/Stage: 1 Type of Debridement: Excisional debridement Anesthesia Used: 4% Lidocaine Solution Depth: in the subcutaneous layer Percentage of wound debrided: 100 Instrument Used: #15 blade Tissue Removed: fibrous, devitalized subcutaneous, biofilm, slough Severity: Fat Layer Exposed Amount of bleeding with debridement: Mild Bleeding Controlled with: Pressure Patient tolerated procedure: Patient tolerated procedure well Assessment/Plan Assessment/Plan (1) Ulcer of left lower extremity with fat layer exposed: CODE(S): L97.922 - Non-pressure chronic ulcer of unspecified part of left lower leg with fat layer exposed (2) Ulcer of right foot with fat layer exposed: CODE(S): L97.512 - Non-pressure chronic ulcer of other part of right foot with fat layer exposed (3) Delayed wound healing: CODE(S): T14.8XXD - Other injury of unspecified body region, subsequent encounter (4) Type 2 diabetes mellitus with diabetic polyneuropathy: CODE(S): E11.42 - Type 2 diabetes mellitus with diabetic polyneuropathy (5) Localized edema: CODE(S): R60.0 - Localized edema PLAN: Procedure- Location: right leg, medial right second toe, medial right forefoot all stage 1 Excisional debridement performed Anesthesia: 5% lidocaine plain Debridement layer: subcutaneous Amount of debridement: 100% Instrumentation used: 15 blade Tissue debrided: fibrous, devitalized subcutaneous, biofilm, slough Exposed tissue: fat layer Bleeding: mild Hemostasis controlled: pressure The patient tolerated the procedure well I reviewed and discussed his case. His ulcer was debrided as noted. His new ulcer site is noted now to the right medial foot and leg. He was reassured no local signs of infection are seen. The sites were debrided bilateral. To change dressing daily with dakin wet to dry dressing bilateral [facility] on 04-30-20 were also reviewed as the following: wbc 5.61, Cr 1.71, GFR 41, albumin 1.9, crp 16.1, ESR 89. His hemoglobin A1c is significantly improved to 6.9%. His prior foot x-rays did not have soft tissue emphysema but there was disintegration of the distal second toe and his injury and now concern of infection site. To continue with right lower extremity surgical shoe. Extra-depth diabetic shoes will be considered after his maceration, ulcer healed, and edema are controlled. To continue with automated wheelchair. To continue to optimize healing with improved glycemic index, continued weight reduction, and well-balanced [employer] nutrients. To continue with edema management including his compression wraps and also lymphedema pumps. It is noted he has not been able to elevate as much this past week and has increased edema. Additional Mateus wrap was applied prior to Tubigrip application splint to help reduce stump edema. To reduce salt in diet. His poor lower extremity hygiene is noted and is absolutely contributing to his delay in healing, skin compromise and new ulcer formation. I urged him to have help with home health taking a shower including bilateral lower extremities. He completed course of epi fix. Note: [employer] speech recognition chairman & ceo software was used to create portions of this document. Sound-alike and misspelled words, as well as other chairman & ceo errors may be contained in the documentation. The medical decision making level is low. There is noted low risk of morbidity after considering this treatment plan and diagnostic data. The problems addressed require a low medical decision making level which includes two or more minor problems, a stable chronic illness, or an acute uncomplicated illness or injury.
[2020-09-26 11:04] VITALS: BP 155/59; PULSE 48; RESP 22; TEMP 36.3; BMI 43.2
--- NOTE | 2020-09-26 14:19 | PCM.WC.PN ---
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 He also has multiple right foot ulcers and a left leg ulcer, and has been performing dressing changes as advised. He denies fever, chill, nausea, vomiting, redness, or odor. The green drainage is decreasing. He is still not able to take shower and trying to get home health to help him. He relates he has order shower chair now because the leg on his old one broke. Progress of Wound: Healed the plantar right foot and posterior right leg ulcers Stable Objective Data Objective Data Vital Signs: Vital Signs Temp Pulse Resp BP 97.3 F L 48 L 22 H 155/59 H 09/26/20 11:04 09/26/20 11:04 09/26/20 11:04 09/26/20 11:04 Oxygen Delivery Method Room Air Body Mass Index (BMI) 43.2 Physical Exam Const alert and oriented x3 General Appearance: cooperative HEENT normocephalic Extremity Extremity Narrative: No calf tenderness Diminished pulses Muscle wasting noted Left below-knee amputation and right hallux amputation Compartments remain soft to palpate bilateral lower extremities General Extremity: edema and no tenderness to palpation of joints or extremities; Negative for cyanosis Skin Skin Narrative: no purulence, no streaking, no odor, no infection. Skin discontinuity to medial right forefoot is and medial second toe are stable with granular base. Skin peeling to the dorsal foot with maceration and greenish colored drainage to the dressings. Full epithelialization noted to proximal lateral right leg and plantar right foot. Left leg stump site ulcer has granular and fibrous base also. The adjacent skin is hairless and atrophic. There is a bulla less than 2 cm in diameter to the posterior right leg with only serosanguineous drainage noted upon evacuation and the skin was left intact as a biological barrier General Skin Exam: Negative for erythema Neuro Neuro Narrative: lack of normal epicritic sensation via light touch is consistent with neuropathy status Psych cooperative and affect normal Debridement Note Debridement Note Post-Debridement Measurements and Additional Note: Post-Debridement Measurements/Treatment XIMENA - Nurse 1 - General Ulcer Assessment Start: 09/19/20 11:09 Freq: Status: Active Protocol: SUSAN Activity Type Activity Date Activity User E-Sign Co-Sign Detail Recorded Client Recorded Date Recorded By Document 09/19/20 11:09 [facility] [id number] 09/19/20 11:29 [facility] Document 09/26/20 11:04 DL [id number] 09/26/20 11:18 DL 09/19/20 09/26/20 11:09 11:04 - Today's Visit Information Type of service Follow-up Visit Follow-up Visit (Physician/SURGICAL ASST (Physician/SURGICAL ASST ) ) Arrival Mode Wheelchair Wheelchair Transfer Assistance None None Patient Identification Verified (Name & Yes Yes ) Patient Requires Transmission-Based No No Precautions Finger Stick Blood Sugar(mg/dl) (if 113 101 indicated): Blood Sugar Stated by Stated by Patient Patient Height and Weight Body Mass Index (BMI) 43.2 43.2 BMI Classification Obese Obese Vital Signs Temperature (97.8 F-99.1 F) 97.2 F L 97.3 F L Temperature Source Temporal Temporal Pulse Rate (60-100) 44 L 48 L Pulse Location Monitor Monitor Respiratory Rate (12-18) 16 22 H Respiratory rate source Observation Observation Oxygen Delivery Method Room Air Blood Pressure (90/60-120/80) 171/54 H 155/59 H Blood Pressure Mean (mm Hg) 93 91 Source Monitor Monitor Position Sitting Blood Pressure Location Right Arm History Since Last Visit- (Skip if this is Patient's initial visit) Have you changed medications since your No No last visit? Any new allergies or adverse reactions No No Had a fall/change in ADL's that may No No increase risk of falls Signs or symptoms of abuse and/or No No neglect since last visit Have you been in the hospital since your No No last visit? Has dressing in place as prescribed Yes Yes Has compression in place as prescribed Yes Yes Has offloadiing in place as prescribed N/A Yes Experienced any changes in pain level or No No management Left Footwear Surgical Shoe with pressure relief insole Pain Scale: 0-10 Numeric Is Patient Pain Free? Yes Yes - Nurse 1 - General Ulcer Measurement Start: 09/19/20 11:09 Freq: Status: Active Protocol: Activity Type Activity Date Activity User E-Sign Co-Sign Detail Recorded Client Recorded Date Recorded By Document 09/19/20 11:09 [facility] [id number] 09/19/20 11:29 [facility] Document 09/26/20 11:04 DL [id number] 09/26/20 11:18 DL 09/19/20 09/26/20 11:09 11:04 Wound Center Nurse 1 #48- R DORSAL FOOT -Combined with other wound No -Current Size (cm) - Length 4 -Current Size (cm) - Width 8.2 -Current Size (cm) - Depth 0.1 -Total Square Cm 32.8 -Date of Last Picture (Recall this 09/19/20 field) -Photo Taken Yes -Epithelialization None Present -Tunneling No -Undermining/Tunneling No -Circular Undermining No -Exudate Amt Large -Exudate Type Yellow/Green -Wound Margin Flat & Intact -Granulation Amt Large (67-100%) -Granulation Quality [place] -Slough/Fibrin Yes -Necrosis Amt Medium (34-66%) -Necrotic Tissue Type Adherent Slough -Texture (Susy-wound Skin Appearance) Assessed, Excoriation, Scarring -Moisture (Susy-wound Skin Appearance) Assessed, Maceration, Weeping,Dry/ Scaly -Color (Susy-wound Skin Appearance) Assessed, Erythema,Palor -Temperature (Susy-wound Skin No Abnormality Appearance) (Pt Warm) -Tenderness on Palpation (Susy-wound No Skin Appearance) -Ulcer Cleansing SOAP;Y WATER -Foul Odor after Cleansing No -Anesthetic Used 4% Lidocaine Solution #47- R SUPERIOR CALF -Combined with other wound No -Current Size (cm) - Length 2 0.1 -Current Size (cm) - Width 2.2 0.1 -Current Size (cm) - Depth 0.1 0.1 -Total Square Cm 4.4 0.01 -Date of Last Picture (Recall this 09/19/20 field) -Photo Taken Yes No -Epithelialization None Present -Tunneling No -Undermining/Tunneling No -Circular Undermining No -Exudate Amt Medium None Present -Exudate Type Sanguineous -Wound Margin Flat & Intact Flat & Intact -Granulation Amt Large (67-100%) Large (67-100%) -Granulation Quality [place] -Slough/Fibrin No -Necrosis Amt None Present (0 None Present (0 %) %) -Structure Exposed N/A -Texture (Susy-wound Skin Appearance) Assessed, Scarring Scarring -Moisture (Susy-wound Skin Appearance) Assessed Dry/Scaly -Color (Susy-wound Skin Appearance) Assessed Hemosiderin Staining -Temperature (Susy-wound Skin No Abnormality No Abnormality Appearance) (Pt Warm) (Pt Warm) -Tenderness on Palpation (Susy-wound No No Skin Appearance) -Ulcer Cleansing SOAPY WATER Wound Cleanser -Foul Odor after Cleansing No No -Anesthetic Used 5% Lidocaine 4% Lidocaine Gel Solution 46-right 2nd toe -Combined with other wound No -Current Size (cm) - Length 1.3 2 -Current Size (cm) - Width 1.6 1.2 -Current Size (cm) - Depth 0.1 0.1 -Total Square Cm 2.08 2.4 -Photo Taken No No -Epithelialization None Present -Tunneling No -Undermining/Tunneling No -Circular Undermining No -Exudate Amt Medium Medium -Exudate Type Yellow/Green Serosanguineous -Wound Margin Distinct, Distinct, Outline Outline Attached Attached -Granulation Amt Large (67-100%) Medium (34-66%) -Granulation Quality Red [place] -Slough/Fibrin No -Necrosis Amt None Present (0 Medium (34-66%) %) -Necrotic Tissue Type Adherent Slough -Structure Exposed N/A -Texture (Susy-wound Skin Appearance) Assessed, Scarring Scarring -Moisture (Susy-wound Skin Appearance) Assessed,Dry/ Maceration Scaly -Color (Susy-wound Skin Appearance) Assessed, Hemosiderin Erythema Staining -Temperature (Susy-wound Skin No Abnormality No Abnormality Appearance) (Pt Warm) (Pt Warm) -Tenderness on Palpation (Susy-wound No No Skin Appearance) -Ulcer Cleansing SOAPY WTER Wound Cleanser -Foul Odor after Cleansing No No -Anesthetic Used 4% Lidocaine 4% Lidocaine Solution Solution #35 L Stump -Combined with other wound No -Current Size (cm) - Length 1 1.4 -Current Size (cm) - Width 1.8 2.4 -Current Size (cm) - Depth 0.3 0.2 -Total Square Cm 1.8 3.36 -Photo Taken No No -Epithelialization None Present -Tunneling No -Undermining/Tunneling No -Circular Undermining No -Exudate Amt Medium Small -Exudate Type Yellow/Green -Wound Margin Thickened Distinct, Outline Attached -Granulation Amt Small (1-33%) Medium (34-66%) -Granulation Quality [place] -Slough/Fibrin Yes -Necrosis Amt Large (67-100%) Medium (34-66%) -Necrotic Tissue Type Adherent Slough Adherent Slough -Structure Exposed N/A -Texture (Susy-wound Skin Appearance) Assessed, Scarring Scarring -Moisture (Susy-wound Skin Appearance) Assessed, Dry/Scaly Maceration,Dry/ Scaly -Color (Susy-wound Skin Appearance) Assessed,Palor Hemosiderin Staining -Temperature (Susy-wound Skin No Abnormality No Abnormality Appearance) (Pt Warm) (Pt Warm) -Tenderness on Palpation (Susy-wound No No Skin Appearance) -Ulcer Cleansing SOAPY WTER Wound Cleanser -Foul Odor after Cleansing No No -Anesthetic Used 5% Lidocaine 4% Lidocaine Gel Solution #42- R MEDIAL FOOT -Current Size (cm) - Length 3.5 -Current Size (cm) - Width 7.7 -Current Size (cm) - Depth 0.1 -Total Square Cm 26.95 -Photo Taken No -Exudate Amt Medium -Exudate Type Serosanguineous -Wound Margin Distinct, Outline Attached -Granulation Amt Medium (34-66%) -Granulation Quality [place] -Necrosis Amt Medium (34-66%) -Necrotic Tissue Type Adherent Slough -Structure Exposed N/A -Texture (Susy-wound Skin Appearance) Scarring -Moisture (Susy-wound Skin Appearance) Maceration -Color (Susy-wound Skin Appearance) Hemosiderin Staining -Temperature (Susy-wound Skin No Abnormality Appearance) (Pt Warm) -Tenderness on Palpation (Susy-wound No Skin Appearance) -Ulcer Cleansing Wound Cleanser -Foul Odor after Cleansing Yes -Anesthetic Used 4% Lidocaine Solution WC - Nurse 2 - General Ulcer CM Notes Start: 09/19/20 11:09 Freq: Status: Active Protocol: Activity Type Activity Date Activity User E-Sign Co-Sign Detail Recorded Client Recorded Date Recorded By Document 09/19/20 11:36 JF [id number] 09/19/20 11:42 JF Document 09/26/20 12:37 PL [id number] 09/26/20 12:40 PL 09/19/20 09/26/20 11:36 12:37 Wound Center Nurse 2 #47- R SUPERIOR CALF -Time 11:37 -Correct Patient Yes -Correct Side, Site, Position Yes -Correct Procedure Yes -Procedure Performed Yes -Type of Procedure Debridement -Clinical Debridement Subcutaneous -Tissue Removed Subcutaneous -Post Debridement (cm) - Length 2.1 -Post Debridement (cm) - Width 2.2 -Post Debridement (cm) - Depth 0.1 -Total Square (Post) (cm) 4.62 -Area of Debridement (cm) - Length 2.1 -Area of Debridement (cm) - Width 2.2 -Total Square (Area) (cm) 4.62 -Tunneling No -Undermining/Tunneling No -Circular Undermining No -Wound/Ulcer Outcome Not Healed -Ulcer Cleansing Rinsed/ Irrigated with Saline -Foul Odor after Cleansing No -Bioengineered Tissue No -Bleeding Controlled with Pressure -Offloading No -Treatment Response Procedure Tolerated Well -Debridement - Subq, 1st 20sq cm No 46-right 2nd toe -Time 11:38 11:50 -Correct Patient Yes Yes -Correct Side, Site, Position Yes Yes -Correct Procedure Yes Yes -Procedure Performed Yes Yes -Type of Procedure Debridement Debridement -Clinical Debridement Subcutaneous Subcutaneous -Tissue Removed Subcutaneous Subcutaneous -Post Debridement (cm) - Length 1.4 2.0 -Post Debridement (cm) - Width 1.6 1.2 -Post Debridement (cm) - Depth 0.1 0.1 -Total Square (Post) (cm) 2.24 2.40 -Area of Debridement (cm) - Length 1.4 2.0 -Area of Debridement (cm) - Width 1.6 1.2 -Total Square (Area) (cm) 2.24 2.40 -Tunneling No No -Undermining/Tunneling No No -Circular Undermining No No -Wound/Ulcer Outcome Not Healed Not Healed -Ulcer Cleansing Rinsed/ Rinsed/ Irrigated with Irrigated with Saline Saline -Foul Odor after Cleansing No No -Bioengineered Tissue No No -Bleeding Controlled with Pressure -Offloading Yes -Type of Offloading Surgical Shoe -Treatment Response Procedure Tolerated Well -Debridement - Subq, 1st 20sq cm No Yes #35 L Stump -Time 11:39 11:50 -Correct Patient Yes Yes -Correct Side, Site, Position Yes Yes -Correct Procedure Yes Yes -Procedure Performed Yes Yes -Type of Procedure Debridement Debridement -Clinical Debridement Subcutaneous Subcutaneous -Tissue Removed Subcutaneous Subcutaneous -Post Debridement (cm) - Length 1.1 1.4 -Post Debridement (cm) - Width 1.8 2.4 -Post Debridement (cm) - Depth 0.3 0.2 -Total Square (Post) (cm) 1.98 3.36 -Area of Debridement (cm) - Length 1.1 1.4 -Area of Debridement (cm) - Width 1.8 2.4 -Total Square (Area) (cm) 1.98 3.36 -Tunneling No No -Undermining/Tunneling No No -Circular Undermining No No -Wound/Ulcer Outcome Not Healed Not Healed -Ulcer Cleansing Rinsed/ Rinsed/ Irrigated with Irrigated with Saline Saline -Foul Odor after Cleansing No No -Bioengineered Tissue No No -Bleeding Controlled with Pressure Pressure -Offloading No -Treatment Response Procedure Procedure Tolerated Well Tolerated Well -Debridement - Subq, 1st 20sq cm Yes No #42- R MEDIAL FOOT -Time 11:40 -Correct Patient Yes -Correct Side, Site, Position Yes -Correct Procedure Yes -Procedure Performed Yes -Type of Procedure Debridement -Clinical Debridement Subcutaneous -Tissue Removed Subcutaneous -Post Debridement (cm) - Length 0.6 -Post Debridement (cm) - Width 1.5 -Post Debridement (cm) - Depth 0.2 -Total Square (Post) (cm) 0.90 -Area of Debridement (cm) - Length 0.6 -Area of Debridement (cm) - Width 1.5 -Total Square (Area) (cm) 0.90 -Tunneling No -Undermining/Tunneling No -Circular Undermining No -Wound/Ulcer Outcome Not Healed -Ulcer Cleansing Rinsed/ Irrigated with Saline -Foul Odor after Cleansing No -Bioengineered Tissue No -Bleeding Controlled with Pressure -Offloading No -Treatment Response Procedure Tolerated Well -Debridement - Subq, 1st 20sq cm No Pain Scale: 0-10 Numeric Is Patient Pain Free? Yes - Nurse 3 - General Ulcer D/C NN Start: 09/19/20 11:09 Freq: Status: Active Protocol: Activity Type Activity Date Activity User E-Sign Co-Sign Detail Recorded Client Recorded Date Recorded By Document 09/19/20 11:52 RB [id number] 09/19/20 11:55 RB Document 09/26/20 12:06 AR [id number] 09/26/20 12:08 AR 09/19/20 09/26/20 11:52 12:06 Wound Care Nurse 3 #47- R SUPERIOR CALF -Ulcer Cleansing Rinsed/ Irrigated with Saline -Other Dressing DAKINS SOLUTION wet to dry -Primary Dressing Covered/Secured with Dry Gauze,Dry Dry Gauze & Gauze & Roll Roll Gauze, Gauze,Secured Secured with with Tape Tape 46-right 2nd toe -Other Dressing DAKINS SOLUTION -Primary Dressing Covered/Secured with Dry Gauze,Dry Gauze & Roll Gauze,Secured with Tape #35 L Stump -Other Dressing DAKINS SOLUTION -Primary Dressing Covered/Secured with Dry Gauze,Dry Gauze & Roll Gauze,Secured with Tape #42- R MEDIAL FOOT -Other Dressing DAKINS SOLUTION -Primary Dressing Covered/Secured with Dry Gauze,Dry Gauze & Roll Gauze,Secured with Tape Right -Tubular Bandage Single Layer -Size of Tubigrip Used Size F -Size F ($) 1 Left -Tubular Bandage Single Layer -Size of Tubigrip Used Size F -Size F ($) 1 Treatment Response Procedure Tolerated Well Pain Scale: 0-10 Numeric Is Patient Pain Free? Yes WC - Visit Discharge Discharge Condition Stable Ambulatory Status Ambulatory Wheelchair Transportation Private Auto Medication Reconcilliation completed & No No provided to patient/care provider Clinical Summary of Care Provided Yes Yes Notes: wet to dry Wound debrided: left leg, medial right forefoot and medial right second toe Wound Grade/Stage: 1 Type of Debridement: Excisional debridement Anesthesia Used: 4% Lidocaine Solution Depth: in the subcutaneous layer Percentage of wound debrided: 100 Instrument Used: #15 blade Tissue Removed: fibrous, devitalized subcutaneous, biofilm, slough Severity: Fat Layer Exposed Amount of bleeding with debridement: Mild Bleeding Controlled with: Pressure Patient tolerated procedure: Patient tolerated procedure well Assessment/Plan Assessment/Plan (1) Ulcer of left lower extremity with fat layer exposed: CODE(S): L97.922 - Non-pressure chronic ulcer of unspecified part of left lower leg with fat layer exposed (2) Ulcer of right foot with fat layer exposed: CODE(S): L97.512 - Non-pressure chronic ulcer of other part of right foot with fat layer exposed (3) Delayed wound healing: CODE(S): T14.8XXD - Other injury of unspecified body region, subsequent encounter (4) Type 2 diabetes mellitus with diabetic polyneuropathy: CODE(S): E11.42 - Type 2 diabetes mellitus with diabetic polyneuropathy (5) Localized edema: CODE(S): R60.0 - Localized edema (6) Blister of right leg: CODE(S): S80.821A - Blister (nonthermal), right lower leg, initial encounter PLAN: I reviewed and discussed his case. His ulcer was debrided as noted. Verbal consent was obtained to drain blister right leg. This was performed after alcohol was applied and only serous drainage was noted. To cover with a gauze. The skin was left intact as a biological barrier. To avoid direct pressure on the site and to adjust compression garments periodically throughout the day to avoid friction. He was reassured no local signs of infection are seen. The sites were debrided bilateral. To change dressing daily with dakin wet to dry dressing bilateral. [facility] on 04-30-20 were also reviewed as the following: wbc 5.61, Cr 1.71, GFR 41, albumin 1.9, crp 16.1, ESR 89. His hemoglobin A1c is significantly improved to 6.9%. His prior foot x-rays did not have soft tissue emphysema but there was disintegration of the distal second toe and his injury and now concern of infection site. To continue with right lower extremity surgical shoe. Extra-depth diabetic shoes will be considered after his maceration, ulcer healed, and edema are controlled. To continue with automated wheelchair. To continue to optimize healing with improved glycemic index, continued weight reduction, and well-balanced [employer] nutrients. To continue with edema management including his compression wraps and also lymphedema pumps. It is noted he has not been able to elevate as much this past week and has increased edema. Additional Mateus wrap was applied prior to Tubigrip application splint to help reduce stump edema. To reduce salt in diet. His poor lower extremity hygiene is noted and is absolutely contributing to his delay in healing, skin compromise and new ulcer formation. I urged him to have help with home health taking a shower including bilateral lower extremities. He completed course of epi fix. Note: [employer] speech recognition bag patcher software was used to create portions of this document. Sound-alike and misspelled words, as well as other bag patcher errors may be contained in the documentation. The medical decision making level is low. There is noted low risk of morbidity after considering this treatment plan and diagnostic data. The problems addressed require a low medical decision making level which includes two or more minor problems, a stable chronic illness, or an acute uncomplicated illness or injury.
[2020-10-03 10:52] VITALS: BP 165/53; PULSE 60; RESP 20; TEMP 36.8; BMI 43.2
--- NOTE | 2020-10-03 12:06 | PN.PCM_ITS ---
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 He also has multiple right foot ulcers and a left leg ulcer, and has been performing dressing changes as advised. He denies fever, chill, nausea, vomiting, redness, or odor. He denies discolored or odor or drainage. He is still not able to take shower. He relates he is getting a shower chair that recently broke before home health will assist him with this. He relates ongoing leg swelling. Progress of Wound: Stable left Healed forefoot ulcer on the right Improved right leg ulcer Stable right second toe ulcers Objective Data Objective Data Vital Signs: Vital Signs Temp Pulse Resp BP 98.2 F 60 20 H 165/53 H 10/03/20 10:52 10/03/20 10:52 10/03/20 10:52 10/03/20 10:52 Oxygen Delivery Method Room Air Body Mass Index (BMI) 43.2 Physical Exam Const alert and oriented x3 General Appearance: cooperative HEENT normocephalic Extremity Extremity Narrative: No calf tenderness Diminished pulses Muscle wasting noted Left below-knee amputation and right hallux amputation Compartments remain soft to palpate bilateral lower extremities General Extremity: edema and no tenderness to palpation of joints or extremities; Negative for cyanosis Skin Skin Narrative: no purulence, no streaking, no odor, no infection. Full epithelialization and healed to medial right forefoot .granular based medial second toe are stable. Skin peeling to the dorsal foot with maceration now with skin discontinuity and granular base. Reduced ulcer size to prior blister proximal right leg. Left leg stump site ulcer has granular and fibrous base also; unchanged. The adjacent skin is hairless and atrophic. General Skin Exam: Negative for erythema Neuro Neuro Narrative: lack of normal epicritic sensation via light touch is consistent with neuropathy status Psych cooperative and affect normal Debridement Note Debridement Note Post-Debridement Measurements and Additional Note: Post-Debridement Ben urements/Treatment XIMENA - Nurse 1 - General Ulcer Assessment Start: 09/19/20 11:09 Freq: Status: Active Protocol: SUSAN Activity Type Activity Date Activity User E-Sign Co-Sign Detail Recorded Client Recorded Date Recorded By Document 09/19/20 11:09 [facility] [id number] 09/19/20 11:29 BMF Document 09/26/20 11:04 DL [id number] 09/26/20 11:18 DL Document 10/03/20 10:52 DL [id number] 10/03/20 11:12 DL 09/19/20 09/26/20 10/03/20 11:09 11:04 10:52 WC - Today's Visit Information Type of service Follow-up Visit Follow-up Visit Nurse-only (Physician/HADOOP ADMIN (Physician/HADOOP ADMIN Visit ) ) Arrival Mode Wheelchair Wheelchair Wheelchair Transfer Assistance None None None Patient Identification Verified (Name & Yes Yes Yes ) Patient Requires Transmission-Based No No No Precautions Finger Stick Blood Sugar(mg/dl) (if 113 101 131 indicated): Blood Sugar Stated by Stated by Stated by Patient Patient Patient Height and Weight Body Mass Index (BMI) 43.2 43.2 43.2 BMI Classification Obese Obese Obese Vital Signs Temperature (97.8 F-99.1 F) 97.2 F L 97.3 F L 98.2 F Temperature Source Temporal Temporal Temporal Pulse Rate (60-100) 44 L 48 L 60 Pulse Location Monitor Monitor Monitor Respiratory Rate (12-18) 16 22 H 20 H Respiratory rate source Observation Observation Observation Oxygen Delivery Method Room Air Blood Pressure (90/60-120/80) 171/54 H 155/59 H 165/53 H Blood Pressure Mean (mm Hg) 93 91 90 Source Monitor Monitor Monitor Position Sitting Blood Pressure Location Right Arm History Since Last Visit- (Skip if this is Patient's initial visit) Have you changed medications since your No No No last visit? Any new allergies or adverse reactions No No No Had a fall/change in ADL's that may No No No increase risk of falls Signs or symptoms of abuse and/or No No No neglect since last visit Have you been in the hospital since your No No No last visit? Has dressing in place as prescribed Yes Yes Yes Has compression in place as prescribed Yes Yes Yes Has offloadiing in place as prescribed N/A Yes Yes Experienced any changes in pain level or No No No management Left Footwear Surgical Shoe with pressure relief insole Pain Scale: 0-10 Numeric Is Patient Pain Free? Yes Yes Yes - Nurse 1 - General Ulcer Measurement Start: 09/19/20 11:09 Freq: Status: Active Protocol: Activity Type Activity Date Activity User E-Sign Co-Sign Detail Recorded Client Recorded Date Recorded By Document 09/19/20 11:09 [facility] [id number] 09/19/20 11:29 [facility] Document 09/26/20 11:04 DL [id number] 09/26/20 11:18 DL Document 10/03/20 10:52 DL [id number] 10/03/20 11:12 DL 09/19/20 09/26/20 10/03/20 11:09 11:04 10:52 Wound Center Nurse 1 #49 R Dorsal -Current Size (cm) - Length 3.7 -Current Size (cm) - Width 9 -Current Size (cm) - Depth 0.1 -Total Square Cm 33.3 -Photo Taken Yes -Exudate Amt Medium -Exudate Type Yellow/Green -Wound Margin Indistinct, Non -Visible -Granulation Amt Medium (34-66%) -Granulation Quality Red -Necrosis Amt Medium (34-66%) -Necrotic Tissue Type Adherent Slough -Structure Exposed N/A -Texture (Susy-wound Skin Appearance) No Abnormality -Moisture (Susy-wound Skin Appearance) Maceration -Color (Susy-wound Skin Appearance) Hemosiderin Staining -Temperature (Susy-wound Skin No Abnormality Appearance) (Pt Warm) -Tenderness on Palpation (Susy-wound No Skin Appearance) -Ulcer Cleansing Wound Cleanser -Foul Odor after Cleansing Yes -Anesthetic Used 4% Lidocaine Solution #48- R DORSAL FOOT -Combined with other wound No -Current Size (cm) - Length 4 -Current Size (cm) - Width 8.2 -Current Size (cm) - Depth 0.1 -Total Square Cm 32.8 -Date of Last Picture (Recall this 09/19/20 field) -Photo Taken Yes -Epithelialization None Present -Tunneling No -Undermining/Tunneling No -Circular Undermining No -Exudate Amt Large -Exudate Type Yellow/Green -Wound Margin Flat & Intact -Granulation Amt Large (67-100%) -Granulation Quality [place] -Slough/Fibrin Yes -Necrosis Amt Medium (34-66%) -Necrotic Tissue Type Adherent Slough -Texture (Susy-wound Skin Appearance) Assessed, Excoriation, Scarring -Moisture (Susy-wound Skin Appearance) Assessed, Maceration, Weeping,Dry/ Scaly -Color (Susy-wound Skin Appearance) Assessed, Erythema,Palor -Temperature (Susy-wound Skin No Abnormality Appearance) (Pt Warm) -Tenderness on Palpation (Susy-wound No Skin Appearance) -Ulcer Cleansing SOAP;Y WATER -Foul Odor after Cleansing No -Anesthetic Used 4% Lidocaine Solution #47- R SUPERIOR CALF -Combined with other wound No -Current Size (cm) - Length 2 0.1 -Current Size (cm) - Width 2.2 0.1 -Current Size (cm) - Depth 0.1 0.1 -Total Square Cm 4.4 0.01 -Date of Last Picture (Recall this 09/19/20 field) -Photo Taken Yes No -Epithelialization None Present -Tunneling No -Undermining/Tunneling No -Circular Undermining No -Exudate Amt Medium None Present -Exudate Type Sanguineous -Wound Margin Flat & Intact Flat & Intact -Granulation Amt Large (67-100%) Large (67-100%) -Granulation Quality Red [place] -Slough/Fibrin No -Necrosis Amt None Present (0 None Present (0 %) %) -Structure Exposed N/A -Texture (Susy-wound Skin Appearance) Assessed, Scarring Scarring -Moisture (Susy-wound Skin Appearance) Assessed Dry/Scaly -Color (Susy-wound Skin Appearance) Assessed Hemosiderin Staining -Temperature (Susy-wound Skin No Abnormality No Abnormality Appearance) (Pt Warm) (Pt Warm) -Tenderness on Palpation (Susy-wound No No Skin Appearance) -Ulcer Cleansing SOAPY WATER Wound Cleanser -Foul Odor after Cleansing No No -Anesthetic Used 5% Lidocaine 4% Lidocaine Gel Solution 46-right 2nd toe -Combined with other wound No -Current Size (cm) - Length 1.3 2 0.7 -Current Size (cm) - Width 1.6 1.2 0.4 -Current Size (cm) - Depth 0.1 0.1 0.1 -Total Square Cm 2.08 2.4 0.28 -Photo Taken No No No -Epithelialization None Present -Tunneling No -Undermining/Tunneling No -Circular Undermining No -Exudate Amt Medium Medium Small -Exudate Type Yellow/Green Serosanguineous Yellow/Green -Wound Margin Distinct, Distinct, Distinct, Outline Outline Outline Attached Attached Attached -Granulation Amt Large (67-100%) Medium (34-66%) Medium (34-66%) -Granulation Quality Red [place] -Slough/Fibrin No -Necrosis Amt None Present (0 Medium (34-66%) Medium (34-66%) %) -Necrotic Tissue Type Adherent Slough Adherent Slough -Structure Exposed N/A N/A -Texture (Susy-wound Skin Appearance) Assessed, Scarring Localized Edema Scarring ,Scarring -Moisture (Susy-wound Skin Appearance) Assessed,Dry/ Maceration Weeping Scaly -Color (Susy-wound Skin Appearance) Assessed, Hemosiderin Hemosiderin Erythema Staining Staining -Temperature (Susy-wound Skin No Abnormality No Abnormality No Abnormality Appearance) (Pt Warm) (Pt Warm) (Pt Warm) -Tenderness on Palpation (Susy-wound No No No Skin Appearance) -Ulcer Cleansing SOAPY WTER Wound Cleanser Wound Cleanser -Foul Odor after Cleansing No No No -Anesthetic Used 4% Lidocaine 4% Lidocaine 4% Lidocaine Solution Solution Solution #35 L Stump -Combined with other wound No -Current Size (cm) - Length 1 1.4 1.4 -Current Size (cm) - Width 1.8 2.4 2.8 -Current Size (cm) - Depth 0.3 0.2 0.3 -Total Square Cm 1.8 3.36 3.92 -Photo Taken No No No -Epithelialization None Present -Tunneling No -Undermining/Tunneling No -Circular Undermining No -Exudate Amt Medium Small Small -Exudate Type Yellow/Green Yellow/Green -Wound Margin Thickened Distinct, Thickened Outline Attached -Granulation Amt Small (1-33%) Medium (34-66%) Medium (34-66%) -Granulation Quality [place] Red -Slough/Fibrin Yes -Necrosis Amt Large (67-100%) Medium (34-66%) Medium (34-66%) -Necrotic Tissue Type Adherent Slough Adherent Slough Adherent Slough -Structure Exposed N/A N/A -Texture (Susy-wound Skin Appearance) Assessed, Scarring Scarring -Moisture (Susy-wound Skin Appearance) Assessed, Dry/Scaly Maceration,Dry/ Maceration,Dry/ Scaly Scaly -Color (Susy-wound Skin Appearance) Assessed,Palor Hemosiderin Hemosiderin Staining Staining -Temperature (Susy-wound Skin No Abnormality No Abnormality No Abnormality Appearance) (Pt Warm) (Pt Warm) (Pt Warm) -Tenderness on Palpation (Susy-wound No No No Skin Appearance) -Ulcer Cleansing SOAPY WTER Wound Cleanser Wound Cleanser -Foul Odor after Cleansing No No No -Anesthetic Used 5% Lidocaine 4% Lidocaine 4% Lidocaine Gel Solution Solution #42- R MEDIAL FOOT -Current Size (cm) - Length 3.5 -Current Size (cm) - Width 7.7 -Current Size (cm) - Depth 0.1 -Total Square Cm 26.95 -Photo Taken No -Exudate Amt Medium -Exudate Type Serosanguineous -Wound Margin Distinct, Outline Attached -Granulation Amt Medium (34-66%) -Granulation Quality [place] -Necrosis Amt Medium (34-66%) -Necrotic Tissue Type Adherent Slough -Structure Exposed N/A -Texture (Susy-wound Skin Appearance) Scarring -Moisture (Susy-wound Skin Appearance) Maceration -Color (Susy-wound Skin Appearance) Hemosiderin Staining -Temperature (Susy-wound Skin No Abnormality Appearance) (Pt Warm) -Tenderness on Palpation (Susy-wound No Skin Appearance) -Ulcer Cleansing Wound Cleanser -Foul Odor after Cleansing Yes -Anesthetic Used 4% Lidocaine Solution Right Calf (cm) 44.7 Right Ankle (cm) 29.2 WC - Nurse 2 - General Ulcer CM Notes Start: 09/19/20 11:09 Freq: Status: Active Protocol: Activity Type Activity Date Activity User E-Sign Co-Sign Detail Recorded Client Recorded Date Recorded By Document 09/19/20 11:36 JF [id number] 09/19/20 11:42 JF Document 09/26/20 12:37 PL [id number] 09/26/20 12:40 PL Document 10/03/20 11:22 JF [id number] 10/03/20 11:26 JF Edit Result 10/03/20 11:22 JF (1) [id number] 10/03/20 11:30 JF (1) #47- R SUPERIOR CALF - Time => 11:29 - Correct Patient => Yes - Correct Side, Site, Position => Yes - Correct Procedure => Yes - Procedure Performed => Yes - Type of Procedure => Debridement - Clinical Debridement => Subcutaneous - Tissue Removed => Subcutaneous - Post Debridement (cm) - Length => 1.3 - Post Debridement (cm) - Width => 1.1 - Post Debridement (cm) - Depth => 0.1 - Total Square (Post) (cm) => 1.43 - Area of Debridement (cm) - Length => 1.3 - Area of Debridement (cm) - Width => 1.1 - Total Square (Area) (cm) => 1.43 - Tunneling => No - Undermining/Tunneling => No - Circular Undermining => No - Wound/Ulcer Outcome => Not Healed - Ulcer Cleansing => Rinsed/Irrigated => with Saline - Foul Odor after Cleansing => No - Bioengineered Tissue => No - Bleeding Controlled with => Pressure - Offloading => No - Treatment Response => Procedure => Tolerated Well - Debridement - Subq, 1st 20sq cm => No 09/19/20 09/26/20 10/03/20 11:36 12:37 11:22 Wound Center Nurse 2 #49 R Dorsal -Time 11:23 -Correct Patient Yes -Correct Side, Site, Position Yes -Correct Procedure Yes -Procedure Performed Yes -Type of Procedure Debridement -Clinical Debridement Subcutaneous -Tissue Removed Subcutaneous -Post Debridement (cm) - Length 3.8 -Post Debridement (cm) - Width 9 -Post Debridement (cm) - Depth 0.1 -Total Square (Post) (cm) 34.2 -Area of Debridement (cm) - Length 3.8 -Area of Debridement (cm) - Width 9 -Total Square (Area) (cm) 34.2 -Tunneling No -Undermining/Tunneling No -Circular Undermining No -Wound/Ulcer Outcome Not Healed -Ulcer Cleansing Rinsed/ Irrigated with Saline -Foul Odor after Cleansing No -Bioengineered Tissue No -Bleeding Controlled with Pressure -Offloading No -Treatment Response Procedure Tolerated Well -Debridement - Subq, 1st 20sq cm Yes -Debridement, SubQ, ea addt'l 20sq cm 1 or part thereof #47- R SUPERIOR CALF -Time 11:37 11:29 -Correct Patient Yes Yes -Correct Side, Site, Position Yes Yes -Correct Procedure Yes Yes -Procedure Performed Yes Yes -Type of Procedure Debridement Debridement -Clinical Debridement Subcutaneous Subcutaneous -Tissue Removed Subcutaneous Subcutaneous -Post Debridement (cm) - Length 2.1 1.3 -Post Debridement (cm) - Width 2.2 1.1 -Post Debridement (cm) - Depth 0.1 0.1 -Total Square (Post) (cm) 4.62 1.43 -Area of Debridement (cm) - Length 2.1 1.3 -Area of Debridement (cm) - Width 2.2 1.1 -Total Square (Area) (cm) 4.62 1.43 -Tunneling No No -Undermining/Tunneling No No -Circular Undermining No No -Wound/Ulcer Outcome Not Healed Not Healed -Ulcer Cleansing Rinsed/ Rinsed/ Irrigated with Irrigated with Saline Saline -Foul Odor after Cleansing No No -Bioengineered Tissue No No -Bleeding Controlled with Pressure Pressure -Offloading No No -Treatment Response Procedure Procedure Tolerated Well Tolerated Well -Debridement - Subq, 1st 20sq cm No No 46-right 2nd toe -Time 11:38 11:50 11:24 -Correct Patient Yes Yes Yes -Correct Side, Site, Position Yes Yes Yes -Correct Procedure Yes Yes Yes -Procedure Performed Yes Yes Yes -Type of Procedure Debridement Debridement Debridement -Clinical Debridement Subcutaneous Subcutaneous Subcutaneous -Tissue Removed Subcutaneous Subcutaneous Subcutaneous -Post Debridement (cm) - Length 1.4 2.0 0.8 -Post Debridement (cm) - Width 1.6 1.2 0.4 -Post Debridement (cm) - Depth 0.1 0.1 0.1 -Total Square (Post) (cm) 2.24 2.40 0.32 -Area of Debridement (cm) - Length 1.4 2.0 0.8 -Area of Debridement (cm) - Width 1.6 1.2 0.4 -Total Square (Area) (cm) 2.24 2.40 0.32 -Tunneling No No No -Undermining/Tunneling No No No -Circular Undermining No No No -Wound/Ulcer Outcome Not Healed Not Healed Not Healed -Ulcer Cleansing Rinsed/ Rinsed/ Rinsed/ Irrigated with Irrigated with Irrigated with Saline Saline Saline -Foul Odor after Cleansing No No No -Bioengineered Tissue No No No -Bleeding Controlled with Pressure NA -Offloading Yes Yes -Type of Offloading Surgical Shoe Surgical Shoe -Treatment Response Procedure Procedure Tolerated Well Tolerated Well -Debridement - Subq, 1st 20sq cm No Yes No #35 L Stump -Time 11:39 11:50 11:24 -Correct Patient Yes Yes Yes -Correct Side, Site, Position Yes Yes Yes -Correct Procedure Yes Yes Yes -Procedure Performed Yes Yes Yes -Type of Procedure Debridement Debridement Debridement -Clinical Debridement Subcutaneous Subcutaneous Subcutaneous -Tissue Removed Subcutaneous Subcutaneous Subcutaneous -Post Debridement (cm) - Length 1.1 1.4 1.5 -Post Debridement (cm) - Width 1.8 2.4 2.8 -Post Debridement (cm) - Depth 0.3 0.2 0.3 -Total Square (Post) (cm) 1.98 3.36 4.20 -Area of Debridement (cm) - Length 1.1 1.4 1.5 -Area of Debridement (cm) - Width 1.8 2.4 2.8 -Total Square (Area) (cm) 1.98 3.36 4.20 -Tunneling No No No -Undermining/Tunneling No No No -Circular Undermining No No No -Wound/Ulcer Outcome Not Healed Not Healed Not Healed -Ulcer Cleansing Rinsed/ Rinsed/ Rinsed/ Irrigated with Irrigated with Irrigated with Saline Saline Saline -Foul Odor after Cleansing No No No -Bioengineered Tissue No No No -Bleeding Controlled with Pressure Pressure Pressure -Offloading No No -Treatment Response Procedure Procedure Procedure Tolerated Well Tolerated Well Tolerated Well -Debridement - Subq, 1st 20sq cm Yes No No #42- R MEDIAL FOOT -Time 11:40 -Correct Patient Yes -Correct Side, Site, Position Yes -Correct Procedure Yes -Procedure Performed Yes -Type of Procedure Debridement -Clinical Debridement Subcutaneous -Tissue Removed Subcutaneous -Post Debridement (cm) - Length 0.6 -Post Debridement (cm) - Width 1.5 -Post Debridement (cm) - Depth 0.2 -Total Square (Post) (cm) 0.90 -Area of Debridement (cm) - Length 0.6 -Area of Debridement (cm) - Width 1.5 -Total Square (Area) (cm) 0.90 -Tunneling No -Undermining/Tunneling No -Circular Undermining No -Wound/Ulcer Outcome Not Healed -Ulcer Cleansing Rinsed/ Irrigated with Saline -Foul Odor after Cleansing No -Bioengineered Tissue No -Bleeding Controlled with Pressure -Offloading No -Treatment Response Procedure Tolerated Well -Debridement - Subq, 1st 20sq cm No Pain Scale: 0-10 Numeric Is Patient Pain Free? Yes Yes WC - Nurse 3 - General Ulcer D/C NN Start: 09/19/20 11:09 Freq: Status: Active Protocol: Activity Type Activity Date Activity User E-Sign Co-Sign Detail Recorded Client Recorded Date Recorded By Document 09/19/20 11:52 RB [id number] 09/19/20 11:55 RB Document 09/26/20 12:06 MT [id number] 09/26/20 12:08 MT Document 10/03/20 11:34 ND [id number] 10/03/20 11:36 ND 09/19/20 09/26/20 10/03/20 11:52 12:06 11:34 Wound Care Nurse 3 #49 R Dorsal -Primary Dressing Covered/Secured with Dry Gauze & Roll Gauze, Secured with Tape #47- R SUPERIOR CALF -Ulcer Cleansing Rinsed/ Irrigated with Saline -Other Dressing DAKINS SOLUTION wet to dry -Primary Dressing Covered/Secured with Dry Gauze,Dry Dry Gauze & Dry Gauze & Gauze & Roll Roll Gauze, Roll Gauze, Gauze,Secured Secured with Secured with with Tape Tape Tape 46-right 2nd toe -Other Dressing DAKINS SOLUTION -Primary Dressing Covered/Secured with Dry Gauze,Dry Dry Gauze & Gauze & Roll Roll Gauze, Gauze,Secured Secured with with Tape Tape #35 L Stump -Other Dressing DAKINS SOLUTION -Primary Dressing Covered/Secured with Dry Gauze,Dry Dry Gauze & Gauze & Roll Roll Gauze, Gauze,Secured Secured with with Tape Tape #42- R MEDIAL FOOT -Other Dressing DAKINS SOLUTION -Primary Dressing Covered/Secured with Dry Gauze,Dry Gauze & Roll Gauze,Secured with Tape Right -Tubular Bandage Single Layer -Size of Tubigrip Used Size F -Size F ($) 1 Left -Tubular Bandage Single Layer -Size of Tubigrip Used Size F -Size F ($) 1 Treatment Response Procedure Tolerated Well Pain Scale: 0-10 Numeric Is Patient Pain Free? Yes WC - Visit Discharge Discharge Condition Stable Stable Ambulatory Status Ambulatory Wheelchair Wheelchair Transportation Private Auto Medication Reconcilliation completed & No No provided to patient/care provider Clinical Summary of Care Provided Yes Yes Yes Notes: wet to dry wash legs and moisturize. Wound debrided: left leg Wound Grade/Stage: 1 Type of Debridement: Excisional debridement Anesthesia Used: 4% Lidocaine Solution Depth: in the subcutaneous layer Percentage of wound debrided: 100 Instrument Used: #15 blade Tissue Removed: fibrous, devitalized subcutaneous, biofilm, slough Severity: Fat Layer Exposed Amount of bleeding with debridement: Mild Bleeding Controlled with: Pressure Patient tolerated procedure: Patient tolerated procedure well Assessment/Plan Assessment/Plan (1) Ulcer of left lower extremity with fat layer exposed: CODE(S): L97.922 - Non-pressure chronic ulcer of unspecified part of left lower leg with fat layer exposed (2) Ulcer of right foot with fat layer exposed: CODE(S): L97.512 - Non-pressure chronic ulcer of other part of right foot with fat layer exposed (3) Delayed wound healing: CODE(S): T14.8XXD - Other injury of unspecified body region, subsequent encounter (4) Type 2 diabetes mellitus with diabetic polyneuropathy: CODE(S): E11.42 - Type 2 diabetes mellitus with diabetic polyneuropathy (5) Localized edema: CODE(S): R60.0 - Localized edema (6) Blister of right leg: CODE(S): S80.821A - Blister (nonthermal), right lower leg, initial encounter (7) Ulcer of right lower extremity with fat layer exposed: CODE(S): L97.912 - Non-pressure chronic ulcer of unspecified part of right lower leg with fat layer exposed PLAN: Procedure- Location: proximal right leg (posterior), dorsal right foot, medial second toe, plantar second toe jerez grade 1, all Excisional debridement performed Anesthesia: 5% lidocaine plain Debridement layer: subcutaneous Amount of debridement: 100% Instrumentation used: 15 blade Tissue debrided: fibrous, devitalized subcutaneous, biofilm, slough Exposed tissue: fat layer Bleeding: mild Hemostasis controlled: pressure The patient tolerated the procedure well I reviewed and discussed his case. His ulcer was debrided as noted. He was reassured no local signs of infection are seen. The sites were debrided bilateral. To change dressing daily with dakin wet to dry dressing right foot and left leg. To apply Adaptic to proximal right leg ulcer and change daily as well. To cover with gauze and Kerlix. Labs from [facility] on 04-30-20 were also reviewed as the following: wbc 5.61, Cr 1.71, GFR 41, albumin 1.9, crp 16.1, ESR 89. His hemoglobin A1c is significantly improved to 6.9%. His prior foot x-rays did not have soft tissue emphysema but there was disintegration of the distal second toe and his injury and now concern of infection site. To continue with right lower extremity surgical shoe. Extra-depth diabetic shoes will be considered after his maceration, ulcer healed, and edema are controlled. To continue with automated wheelchair. To continue to optimize healing with improved glycemic index, continued weight reduction, and well-balanced [employer] nutrients. To continue with edema management including his compression wraps and also lymphedema pumps. It is noted he has not been able to elevate as much this past week and has increased edema. Additional Mateus wrap was applied prior to Tubigrip application splint to help reduce stump edema. To reduce salt in diet; this was discussed. His poor lower extremity hygiene is noted and is absolutely contributing to his delay in healing, skin compromise and new ulcer formation. I urged him to have help with home health taking a shower including bilateral lower extremities. He is scheduled to get a shower chair this Thursday and then can set this up. He completed course of advanced wound healing product application, epi fix. Note: [employer] speech recognition geospatial developer software was used to create portions of this document. Sound-alike and misspelled words, as well as other geospatial developer errors may be contained in the documentation. The medical decision making level is low. There is noted low risk of morbidity after considering this treatment plan and diagnostic data. The problems addressed require a low medical decision making level which includes two or more minor problems, a stable chronic illness, or an acute uncomplicated illness or injury.
== END 2020-10-13 23:59 ==
LOC: WC 11:00
PROVIDERS: PCP Family Medicine; Visit Provider Podiatrist
DX: E11.622 Type 2 diabetes mellitus with other skin ulcer (principal); L97.822 Non-pressure chronic ulcer of other part of left lower leg with fat layer exposed; L97.112 Non-pressure chronic ulcer of right thigh with fat layer exposed; T87.89 Other complications of amputation stump; E11.621 Type 2 diabetes mellitus with foot ulcer; L97.512 Non-pressure chronic ulcer of other part of right foot with fat layer exposed; E11.42 Type 2 diabetes mellitus with diabetic polyneuropathy; E66.9 Obesity, unspecified; Z68.41 Body mass index [BMI] 40.0-44.9, adult; Z89.512 Acquired absence of left leg below knee; Z89.421 Acquired absence of other right toe(s)
CPT/HCPCS: 11042; 11045

== ENCOUNTER 2020-11-07 11:15 | Outpatient (RCR) | payer MEDICARE, MEDICAID, SELFPAY ==
[2020-10-14 00:20] VITALS: BP 165/53; PULSE 60; RESP 20; TEMP 36.8
[2020-10-17 12:00] VITALS: BP 144/77; PULSE 77; RESP 20; TEMP 36.6; BMI 43.2
--- NOTE | 2020-10-17 13:09 | PN.PCM_ITS ---
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 He also has multiple right foot ulcers and a left leg ulcer, and has been performing dressing changes as advised. He denies fever, chill, nausea, vomiting, redness, or odor. He denies discolored, odor, or drainage. His leg swelling is decreased. He has been able to take several showers since his last clinical visit. He continues to apply lotion to his legs as recommended but not directly to the ulcer sites. 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 Full epithelialization and healed to medial right forefoot .granular based medial second toe are stable (reduced size). Skin peeling to the dorsal foot with maceration now with skin discontinuity and granular base. Reduced ulcer size to prior blister proximal posterior right leg subhemorrhagic and very superficial. Left leg stump site ulcer has granular and fibrous base also; unchanged. The adjacent skin is hairless and atrophic. General Skin Exam: Negative for erythema Neuro Neuro Narrative: lack of normal epicritic sensation via light touch is consistent with neuropathy status Psych cooperative and affect normal Debridement Note Debridement Note Post-Debridement Measurements and Additional Note: Post-Debridement Measurements/Treatment XIMENA - Nurse 1 - General Ulcer Assessment Start: 10/17/20 11:16 Freq: Status: Active Protocol: SUSAN Activity Type Activity Date Activity User E-Sign Co-Sign Detail Recorded Client Recorded Date Recorded By Document 10/17/20 12:00 DL [id number] 10/17/20 12:03 DL 10/17/20 12:00 - Today's Visit Information Type of service Follow-up Visit (Physician/[facility] DEPARTMENT HEAD ) Arrival Mode Wheelchair Transfer Assistance None Patient Requires Transmission-Based No Precautions Finger Stick Blood Sugar(mg/dl) (if 124 indicated): Blood Sugar Stated by Patient Height and Weight Body Mass Index (BMI) 43.2 BMI Classification Obese Vital Signs Temperature (97.8 F-99.1 F) 97.8 F Temperature Source Temporal Pulse Rate (60-100) 77 Pulse Location Monitor Respiratory Rate (12-18) 20 H Respiratory rate source Observation Blood Pressure (90/60-120/80) 144/77 H Blood Pressure Mean (mm Hg) 99 Source Monitor History Since Last Visit- (Skip if this is Patient's initial visit) Have you changed medications since your No last visit? Any new allergies or adverse reactions No Had a fall/change in ADL's that may No increase risk of falls Signs or symptoms of abuse and/or No neglect since last visit Have you been in the hospital since your No last visit? Has dressing in place as prescribed Yes Has compression in place as prescribed Yes Has offloadiing in place as prescribed Yes Experienced any changes in pain level or No management Left Footwear No Footwear Right Footwear Removable Cast Walker/Walking Boot Pain Scale: 0-10 Numeric Is Patient Pain Free? Yes - Nurse 1 - General Ulcer Measurement Start: 10/17/20 11:16 Freq: Status: Active Protocol: Activity Type Activity Date Activity User E-Sign Co-Sign Detail Recorded Client Recorded Date Recorded By Document 10/17/20 12:00 [id number] 10/17/20 12:03 DL 10/17/20 12:00 Wound Center Nurse 1 #49 R Dorsal -Current Size (cm) - Length 3.1 -Current Size (cm) - Width 6.8 -Current Size (cm) - Depth 0.1 -Total Square Cm 21.08 -Photo Taken No -Exudate Amt Large -Exudate Type Yellow/Green -Wound Margin Indistinct, Non -Visible -Granulation Amt Medium (34-66%) -Granulation Quality Pale -Necrosis Amt Medium (34-66%) -Necrotic Tissue Type Eschar -Structure Exposed N/A -Texture (Susy-wound Skin Appearance) Scarring -Moisture (Susy-wound Skin Appearance) Maceration -Color (Susy-wound Skin Appearance) Hemosiderin Staining -Temperature (Susy-wound Skin No Abnormality Appearance) (Pt Warm) -Tenderness on Palpation (Susy-wound No Skin Appearance) -Ulcer Cleansing Wound Cleanser -Foul Odor after Cleansing Yes -Anesthetic Used 4% Lidocaine Solution 46-right 2nd toe -Current Size (cm) - Length 1.8 -Current Size (cm) - Width 0.2 -Current Size (cm) - Depth 0.3 -Total Square Cm 0.36 -Photo Taken No -Exudate Amt Small -Exudate Type Serosanguineous -Wound Margin Indistinct, Non -Visible -Granulation Amt Small (1-33%) -Granulation Quality Pale,Ruso -Necrosis Amt Small (1-33%) -Necrotic Tissue Type Adherent Slough -Structure Exposed N/A -Texture (Susy-wound Skin Appearance) Scarring -Moisture (Susy-wound Skin Appearance) Maceration, Weeping -Color (Susy-wound Skin Appearance) Hemosiderin Staining -Temperature (Susy-wound Skin No Abnormality Appearance) (Pt Warm) -Tenderness on Palpation (Susy-wound No Skin Appearance) -Ulcer Cleansing Wound Cleanser -Foul Odor after Cleansing No -Anesthetic Used 4% Lidocaine Solution #35 L Stump -Current Size (cm) - Length 1.5 -Current Size (cm) - Width 2.3 -Current Size (cm) - Depth 0.2 -Total Square Cm 3.45 -Photo Taken No -Exudate Amt Small -Exudate Type Serosanguineous -Wound Margin Distinct, Outline Attached -Granulation Amt Medium (34-66%) -Granulation Quality Pale,Ruso -Necrosis Amt Medium (34-66%) -Necrotic Tissue Type Adherent Slough -Structure Exposed N/A -Texture (Susy-wound Skin Appearance) Scarring -Moisture (Susy-wound Skin Appearance) Dry/Scaly -Color (Susy-wound Skin Appearance) No Abnormality -Temperature (Susy-wound Skin No Abnormality Appearance) (Pt Warm) -Tenderness on Palpation (Susy-wound No Skin Appearance) -Ulcer Cleansing Wound Cleanser -Foul Odor after Cleansing No -Anesthetic Used 4% Lidocaine Solution WC - Nurse 2 - General Ulcer CM Notes Start: 10/17/20 11:16 Freq: Status: Active Protocol: Activity Type Activity Date Activity User E-Sign Co-Sign Detail Recorded Client Recorded Date Recorded By Document 10/17/20 11:44 NORRIS [id number] 10/17/20 11:51 NORRIS 10/17/20 11:44 Wound Center Nurse 2 #49 R Dorsal -Time 11:45 -Correct Patient Yes -Correct Side, Site, Position Yes -Correct Procedure Yes -Procedure Performed Yes -Type of Procedure Debridement -Clinical Debridement Subcutaneous -Tissue Removed Subcutaneous -Post Debridement (cm) - Length 3.2 -Post Debridement (cm) - Width 6.8 -Post Debridement (cm) - Depth 1 -Total Square (Post) (cm) 21.76 -Area of Debridement (cm) - Length 3.2 -Area of Debridement (cm) - Width 6.8 -Total Square (Area) (cm) 21.76 -Tunneling No -Undermining/Tunneling No -Circular Undermining No -Wound/Ulcer Outcome Not Healed -Foul Odor after Cleansing No -Bioengineered Tissue No -Bleeding Controlled with Pressure -Offloading No -Treatment Response Procedure Tolerated Well -Debridement - Subq, 1st 20sq cm Yes -Debridement, SubQ, ea addt'l 20sq cm 1 or part thereof #47- R SUPERIOR CALF -Time 11:46 -Correct Patient Yes -Correct Side, Site, Position Yes -Correct Procedure Yes -Procedure Performed Yes -Type of Procedure Debridement -Clinical Debridement Subcutaneous -Tissue Removed Subcutaneous -Post Debridement (cm) - Length 3 -Post Debridement (cm) - Width 4 -Post Debridement (cm) - Depth 0.1 -Total Square (Post) (cm) 12 -Area of Debridement (cm) - Length 3 -Area of Debridement (cm) - Width 4 -Total Square (Area) (cm) 12 -Tunneling No -Undermining/Tunneling No -Circular Undermining No -Wound/Ulcer Outcome Not Healed -Ulcer Cleansing Rinsed/ Irrigated with Saline -Foul Odor after Cleansing No -Bioengineered Tissue No -Bleeding Controlled with Pressure -Offloading No -Treatment Response Procedure Tolerated Well -Debridement - Subq, 1st 20sq cm No 46-right 2nd toe -Time 11:45 -Correct Patient Yes -Correct Side, Site, Position Yes -Correct Procedure Yes -Procedure Performed Yes -Type of Procedure Debridement -Clinical Debridement Subcutaneous -Tissue Removed Subcutaneous -Post Debridement (cm) - Length 0.1 -Post Debridement (cm) - Width 0.2 -Post Debridement (cm) - Depth 0.1 -Total Square (Post) (cm) 0.02 -Area of Debridement (cm) - Length 0.1 -Area of Debridement (cm) - Width 0.2 -Total Square (Area) (cm) 0.02 -Tunneling No -Undermining/Tunneling No -Circular Undermining No -Wound/Ulcer Outcome Not Healed -Ulcer Cleansing Rinsed/ Irrigated with Saline -Foul Odor after Cleansing No -Bioengineered Tissue No -Bleeding Controlled with Pressure -Offloading Yes -Type of Offloading Surgical Shoe -Treatment Response Procedure Tolerated Well -Debridement - Subq, 1st 20sq cm No #35 L Stump -Time 11:47 -Correct Patient Yes -Correct Side, Site, Position Yes -Correct Procedure Yes -Procedure Performed Yes -Type of Procedure Debridement -Clinical Debridement Subcutaneous -Tissue Removed Subcutaneous -Post Debridement (cm) - Length 1.6 -Post Debridement (cm) - Width 2.3 -Post Debridement (cm) - Depth 0.2 -Total Square (Post) (cm) 3.68 -Area of Debridement (cm) - Length 1.6 -Area of Debridement (cm) - Width 2.3 -Total Square (Area) (cm) 3.68 -Tunneling No -Undermining/Tunneling No -Circular Undermining No -Wound/Ulcer Outcome Not Healed -Ulcer Cleansing Rinsed/ Irrigated with Saline -Foul Odor after Cleansing No -Bioengineered Tissue No -Bleeding Controlled with Pressure -Offloading No -Treatment Response Procedure Tolerated Well -Debridement - Subq, 1st 20sq cm No Pain Scale: 0-10 Numeric Is Patient Pain Free? Yes WC - Nurse 3 - General Ulcer D/C NN Start: 10/17/20 11:16 Freq: Status: Active Protocol: Activity Type Activity Date Activity User E-Sign Co-Sign Detail Recorded Client Recorded Date Recorded By Document 10/17/20 12:03 VIDA [id number] 10/17/20 12:07 DL 10/17/20 12:03 Wound Care Nurse 3 #49 R Dorsal -Ulcer Cleansing Wound Cleanser -Foul Odor after Cleansing No -Other Dressing Dakins -Primary Dressing Covered/Secured with Dry Gauze & Roll Gauze, Secured with Tape #47- R SUPERIOR CALF -Ulcer Cleansing Wound Cleanser -Foul Odor after Cleansing No -Primary Dressing Applied NonAdherent Contact Layer -Primary Dressing Covered/Secured with Dry Gauze & Roll Gauze, Secured with Tape 46-right 2nd toe -Ulcer Cleansing Wound Cleanser -Foul Odor after Cleansing No -Other Dressing Dakins -Primary Dressing Covered/Secured with Dry Gauze & Roll Gauze, Secured with Tape #35 L Stump -Ulcer Cleansing Wound Cleanser -Foul Odor after Cleansing No -Other Dressing Dakins -Primary Dressing Covered/Secured with Dry Gauze & Roll Gauze, Secured with Tape Wound debrided: medial right 2nd toe, posterior right leg, distal left leg stump Wound Grade/Stage: 1 Type of Debridement: Excisional debridement Anesthesia Used: 4% Lidocaine Solution Depth: in the subcutaneous layer Percentage of wound debrided: 100 Instrument Used: #15 blade Tissue Removed: fibrous, devitalized subcutaneous, biofilm, slough Severity: Fat Layer Exposed Amount of bleeding with debridement: Mild Bleeding Controlled with: Pressure Patient tolerated procedure: Patient tolerated procedure well Assessment/Plan Assessment/Plan (1) Ulcer of left lower extremity with fat layer exposed: CODE(S): L97.922 - Non-pressure chronic ulcer of unspecified part of left lower leg with fat layer exposed (2) Ulcer of right foot with fat layer exposed: CODE(S): L97.512 - Non-pressure chronic ulcer of other part of right foot with fat layer exposed (3) Delayed wound healing: CODE(S): T14.8XXD - Other injury of unspecified body region, subsequent encounter (4) Type 2 diabetes mellitus with diabetic polyneuropathy: CODE(S): E11.42 - Type 2 diabetes mellitus with diabetic polyneuropathy (5) Localized edema: CODE(S): R60.0 - Localized edema (6) Blister of right leg: CODE(S): S80.821A - Blister (nonthermal), right lower leg, initial encounter (7) Ulcer of right lower extremity with fat layer exposed: CODE(S): L97.912 - Non-pressure chronic ulcer of unspecified part of right lower leg with fat layer exposed PLAN: I reviewed and discussed his case. His ulcer was debrided as noted. He was reassured no local signs of infection are seen. The sites were debrided bilateral. To change dressing daily with dakin wet to dry dressing right foot and left leg. To apply Adaptic to proximal right leg ulcer and change daily as well. To cover with gauze and Kerlix. Labs from [facility] on 04-30-20 were also reviewed as the following: wbc 5.61, Cr 1.71, GFR 41, albumin 1.9, crp 16.1, ESR 89. His hemoglobin A1c is significantly improved to 6.9%. His prior foot x-rays did not have soft tissue emphysema but there was disintegration of the distal second toe and his injury and now concern of infection site. To continue with right lower extremity surgical shoe. Extra-depth diabetic shoes will be considered after his maceration, ulcer healed, and edema are controlled. To continue with automated wheelchair. To continue to optimize healing with improved glycemic index, continued weight reduction, and well-balanced [employer] nutrients. To continue with edema management including his compression wraps and also lymphedema pumps. It is noted he has not been able to elevate as much this past week and has increased edema. Additional Mateus wrap was applied prior to Tubigrip application splint to help reduce stump edema. To reduce salt in diet; this was discussed. His poor lower extremity hygiene is noted and is absolutely contributing to his delay in healing, skin compromise and new ulcer formation. To continue with showering routine. Additional flaking of skin was mechanically from his right leg today without incidence and he tolerated this well. To resume applying Lac- Hydrin lotion. He completed course of advanced wound healing product application, epi fix. Note: [employer] speech recognition activity therapy specialist software was used to create portions of this document. Sound-alike and misspelled words, as well as other activity therapy specialist errors may be contained in the documentation.
[2020-10-31 11:11] VITALS: BP 176/71; PULSE 65; RESP 18; TEMP 36.7; BMI 43.2
--- NOTE | 2020-10-31 14:11 | PCM.PROGNOTE ---
Objective Data Objective Data Vital Signs: Vital Signs Temp Pulse Resp BP 98.1 F 65 18 176/71 H 10/31/20 11:11 10/31/20 11:11 10/31/20 11:11 10/31/20 11:11 Body Mass Index (BMI) 43.2
--- NOTE | 2020-10-31 15:50 | PN.PCM_ITS ---
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 He also has multiple right foot ulcers and a left leg ulcer, and has been performing dressing changes as advised. He denies fever, chill, nausea, vomiting, redness, or odor. He denies odor, or drainage. His leg swelling is continued. He change the dressing every other day with Dakin's because he has not been able to get home health to help him more frequently. He has increased green drainage to the dressings. He thinks the right leg ulcer is healed. He is in the process of contacting his primary care physician to see if it is appropriate to reintroduce Lasix to help with his limb edema. Progress of Wound: improved right foot Stable left leg Healed right leg Objective Data Objective Data Vital Signs: Vital Signs Temp Pulse Resp BP 98.1 F 65 18 176/71 H 10/31/20 11:11 10/31/20 11:11 10/31/20 11:11 10/31/20 11:11 Body Mass Index (BMI) 43.2 Physical Exam Const alert and oriented x3 General Appearance: cooperative HEENT normocephalic Extremity Extremity Narrative: No calf tenderness Diminished pulses Muscle wasting noted Left below-knee amputation and right hallux amputation Compartments remain soft to palpate bilateral lower extremities General Extremity: edema and no tenderness to palpation of joints or extremities; Negative for cyanosis Skin Skin Narrative: no purulence, no streaking, no odor, no infection. Full epithelialization and healed to medial right forefoot .granular based medial second toe are stable. Skin peeling to the dorsal foot with maceration now with skin discontinuity and granular base. healed right posterior leg ulcer. Left leg stump site ulcer has granular and fibrous base also; unchanged. The adjacent skin is hairless and atrophic. General Skin Exam: Negative for erythema Neuro Neuro Narrative: lack of normal epicritic sensation via light touch is consistent with neuropathy status Psych cooperative and affect normal Debridement Note Debridement Note Post-Debridement Measurements and Additional Note: Post-Debridement Measurements/Treatment [id number] - Nurse 1 - General Ulcer Assessment Start: 10/17/20 11:16 Freq: Status: Active Protocol: SUSAN Activity Type Activity Date Activity User E-Sign Co-Sign Detail Recorded Client Recorded Date Recorded By Document 10/17/20 12:00 DL [id number] 10/17/20 12:03 DL Document 10/31/20 11:11 RB [id number] 10/31/20 11:21 RB 10/17/20 10/31/20 12:00 11:11 WC - Today's Visit Information Type of service Follow-up Visit Follow-up Visit (Physician/DENTISTRY TEACHER (Physician/DENTISTRY TEACHER ) ) Arrival Mode Wheelchair Wheelchair Transfer Assistance None None Patient Identification Verified (Name & Yes ) Patient Requires Transmission-Based No No Precautions Finger Stick Blood Sugar(mg/dl) (if 124 indicated): Blood Sugar Stated by Patient Height and Weight Body Mass Index (BMI) 43.2 43.2 BMI Classification Obese Obese Vital Signs Temperature (97.8 F-99.1 F) 97.8 F 98.1 F Temperature Source Temporal Temporal Pulse Rate (60-100) 77 65 Pulse Location Monitor Monitor Respiratory Rate (12-18) 20 H 18 Respiratory rate source Observation Observation Blood Pressure (90/60-120/80) 144/77 H 176/71 H Blood Pressure Mean (mm Hg) 99 106 Source Monitor Monitor Position Semi-Fowlers Blood Pressure Location Left Arm History Since Last Visit- (Skip if this is Patient's initial visit) Have you changed medications since your No No last visit? Any new allergies or adverse reactions No No Had a fall/change in ADL's that may No No increase risk of falls Signs or symptoms of abuse and/or No No neglect since last visit Have you been in the hospital since your No No last visit? Has dressing in place as prescribed Yes Yes Has compression in place as prescribed Yes Yes Has offloadiing in place as prescribed Yes No Experienced any changes in pain level or No No management Left Footwear No Footwear Right Footwear Removable Cast Walker/Walking Boot Pain Scale: 0-10 Numeric Is Patient Pain Free? Yes Yes - Nurse 1 - General Ulcer Measurement Start: 10/17/20 11:16 Freq: Status: Active Protocol: Activity Type Activity Date Activity User E-Sign Co-Sign Detail Recorded Client Recorded Date Recorded By Document 10/17/20 12:00 DL [id number] 10/17/20 12:03 DL Document 10/31/20 11:11 RB [id number] 10/31/20 11:21 RB 10/17/20 10/31/20 12:00 11:11 Wound Center Nurse 1 #49 R Dorsal -Combined with other wound No -Current Size (cm) - Length 3.1 4.5 -Current Size (cm) - Width 6.8 9.4 -Current Size (cm) - Depth 0.1 0.1 -Total Square Cm 21.08 42.30 -Photo Taken No -Tunneling No -Undermining/Tunneling No -Circular Undermining No -Exudate Amt Large Large -Exudate Type Yellow/Green Serosanguineous -Wound Margin Indistinct, Non Distinct, -Visible Outline Attached -Granulation Amt Medium (34-66%) Medium (34-66%) -Granulation Quality Pale [place] -Slough/Fibrin Yes -Necrosis Amt Medium (34-66%) Medium (34-66%) -Necrotic Tissue Type Eschar Adherent Slough -Structure Exposed N/A N/A -Texture (Susy-wound Skin Appearance) Scarring Assessed -Moisture (Susy-wound Skin Appearance) Maceration Maceration -Color (Susy-wound Skin Appearance) Hemosiderin Assessed Staining -Temperature (Susy-wound Skin No Abnormality No Abnormality Appearance) (Pt Warm) (Pt Warm) -Tenderness on Palpation (Susy-wound No No Skin Appearance) -Ulcer Cleansing Wound Cleanser Wound Cleanser -Foul Odor after Cleansing Yes No -Anesthetic Used 4% Lidocaine 4% Lidocaine Solution Solution,5% Lidocaine Gel #47- R SUPERIOR CALF -Combined with other wound No -Current Size (cm) - Length 0.1 -Current Size (cm) - Width 0.1 -Current Size (cm) - Depth 0.1 -Total Square Cm 0.01 -Tunneling No -Undermining/Tunneling No -Circular Undermining No -Exudate Amt Small -Exudate Type Serosanguineous -Wound Margin Distinct, Outline Attached -Granulation Amt Medium (34-66%) -Granulation Quality [place] -Slough/Fibrin Yes -Necrosis Amt Medium (34-66%) -Necrotic Tissue Type Adherent Slough -Structure Exposed N/A -Texture (Susy-wound Skin Appearance) Assessed -Moisture (Susy-wound Skin Appearance) Assessed -Color (Susy-wound Skin Appearance) Assessed -Temperature (Susy-wound Skin No Abnormality Appearance) (Pt Warm) -Tenderness on Palpation (Susy-wound No Skin Appearance) -Ulcer Cleansing Wound Cleanser -Foul Odor after Cleansing No -Anesthetic Used 4% Lidocaine Solution,5% Lidocaine Gel 46-right 2nd toe -Combined with other wound No -Current Size (cm) - Length 1.8 2 -Current Size (cm) - Width 0.2 2 -Current Size (cm) - Depth 0.3 0.1 -Total Square Cm 0.36 4 -Photo Taken No -Tunneling No -Undermining/Tunneling No -Circular Undermining No -Exudate Amt Small Large -Exudate Type Serosanguineous Serosanguineous -Wound Margin Indistinct, Non Distinct, -Visible Outline Attached -Granulation Amt Small (1-33%) Medium (34-66%) -Granulation Quality Pale,[place] -Slough/Fibrin Yes -Necrosis Amt Small (1-33%) Medium (34-66%) -Necrotic Tissue Type Adherent Slough Adherent Slough -Structure Exposed N/A N/A -Texture (Susy-wound Skin Appearance) Scarring Assessed -Moisture (Susy-wound Skin Appearance) Maceration, Maceration Weeping -Color (Susy-wound Skin Appearance) Hemosiderin Assessed Staining -Temperature (Susy-wound Skin No Abnormality No Abnormality Appearance) (Pt Warm) (Pt Warm) -Tenderness on Palpation (Susy-wound No No Skin Appearance) -Ulcer Cleansing Wound Cleanser Wound Cleanser -Foul Odor after Cleansing No No -Anesthetic Used 4% Lidocaine 4% Lidocaine Solution Solution,5% Lidocaine Gel #35 L Stump -Combined with other wound No -Current Size (cm) - Length 1.5 1.2 -Current Size (cm) - Width 2.3 2.3 -Current Size (cm) - Depth 0.2 0.5 -Total Square Cm 3.45 2.76 -Photo Taken No -Tunneling No -Undermining/Tunneling No -Circular Undermining No -Exudate Amt Small Large -Exudate Type Serosanguineous Serosanguineous -Wound Margin Distinct, Distinct, Outline Outline Attached Attached -Granulation Amt Medium (34-66%) Medium (34-66%) -Granulation Quality Pale,[place] -Slough/Fibrin Yes -Necrosis Amt Medium (34-66%) Medium (34-66%) -Necrotic Tissue Type Adherent Slough Adherent Slough -Structure Exposed N/A N/A -Texture (Susy-wound Skin Appearance) Scarring Assessed -Moisture (Susy-wound Skin Appearance) Dry/Scaly Maceration -Color (Susy-wound Skin Appearance) No Abnormality Assessed -Temperature (Susy-wound Skin No Abnormality No Abnormality Appearance) (Pt Warm) (Pt Warm) -Tenderness on Palpation (Susy-wound No No Skin Appearance) -Ulcer Cleansing Wound Cleanser Wound Cleanser -Foul Odor after Cleansing No No -Anesthetic Used 4% Lidocaine 4% Lidocaine Solution Solution,5% Lidocaine Gel Lower Limb Edema Present Yes Right Calf (cm) 41.5 Right Ankle (cm) 28.1 WC - Nurse 2 - General Ulcer CM Notes Start: 10/17/20 11:16 Freq: Status: Active Protocol: Activity Type Activity Date Activity User E-Sign Co-Sign Detail Recorded Client Recorded Date Recorded By Document 10/17/20 11:44 [id number] 10/17/20 11:51 Document 10/31/20 11:43 [id number] 10/31/20 11:49 10/17/20 10/31/20 11:44 11:43 Wound Center Nurse 2 #49 R Dorsal -Time 11:45 11:44 -Correct Patient Yes Yes -Correct Side, Site, Position Yes Yes -Correct Procedure Yes Yes -Procedure Performed Yes Yes -Type of Procedure Debridement Debridement -Clinical Debridement Subcutaneous Subcutaneous -Tissue Removed Subcutaneous Subcutaneous -Post Debridement (cm) - Length 3.2 4.5 -Post Debridement (cm) - Width 6.8 1.0 -Post Debridement (cm) - Depth 1 0.1 -Total Square (Post) (cm) 21.76 4.50 -Area of Debridement (cm) - Length 3.2 4.5 -Area of Debridement (cm) - Width 6.8 1.0 -Total Square (Area) (cm) 21.76 4.50 -Tunneling No No -Undermining/Tunneling No No -Circular Undermining No No -Wound/Ulcer Outcome Not Healed Not Healed -Ulcer Cleansing Rinsed/ Irrigated with Saline -Foul Odor after Cleansing No No -Bioengineered Tissue No No -Bleeding Controlled with Pressure Pressure -Offloading No Yes -Type of Offloading Surgical Shoe -Treatment Response Procedure Procedure Tolerated Well Tolerated Well -Debridement - Subq, 1st 20sq cm Yes Yes -Debridement, SubQ, ea addt'l 20sq cm 1 or part thereof #47- R SUPERIOR CALF -Time 11:46 -Correct Patient Yes No -Correct Side, Site, Position Yes No -Correct Procedure Yes No -Procedure Performed Yes No -Type of Procedure Debridement -Clinical Debridement Subcutaneous -Tissue Removed Subcutaneous -Post Debridement (cm) - Length 3 0 -Post Debridement (cm) - Width 4 0 -Post Debridement (cm) - Depth 0.1 0 -Total Square (Post) (cm) 12 0 -Area of Debridement (cm) - Length 3 0 -Area of Debridement (cm) - Width 4 0 -Total Square (Area) (cm) 12 0 -Tunneling No -Undermining/Tunneling No -Circular Undermining No -Wound/Ulcer Outcome Not Healed Healed- Epithelialized -Ulcer Cleansing Rinsed/ Irrigated with Saline -Foul Odor after Cleansing No -Bioengineered Tissue No -Bleeding Controlled with Pressure -Offloading No -Treatment Response Procedure Tolerated Well -Debridement - Subq, 1st 20sq cm No 46-right 2nd toe -Time 11:45 11:45 -Correct Patient Yes Yes -Correct Side, Site, Position Yes Yes -Correct Procedure Yes Yes -Procedure Performed Yes Yes -Type of Procedure Debridement Debridement -Clinical Debridement Subcutaneous Subcutaneous -Tissue Removed Subcutaneous Subcutaneous -Post Debridement (cm) - Length 0.1 2.0 -Post Debridement (cm) - Width 0.2 0.5 -Post Debridement (cm) - Depth 0.1 0.1 -Total Square (Post) (cm) 0.02 1.00 -Area of Debridement (cm) - Length 0.1 2.0 -Area of Debridement (cm) - Width 0.2 0.5 -Total Square (Area) (cm) 0.02 1.00 -Tunneling No No -Undermining/Tunneling No No -Circular Undermining No No -Wound/Ulcer Outcome Not Healed Not Healed -Ulcer Cleansing Rinsed/ Rinsed/ Irrigated with Irrigated with Saline Saline -Foul Odor after Cleansing No No -Bioengineered Tissue No No -Bleeding Controlled with Pressure Pressure -Offloading Yes Yes -Type of Offloading Surgical Shoe Surgical Shoe -Treatment Response Procedure Procedure Tolerated Well Tolerated Well -Debridement - Subq, 1st 20sq cm No No #35 L Stump -Time 11:47 11:45 -Correct Patient Yes Yes -Correct Side, Site, Position Yes Yes -Correct Procedure Yes Yes -Procedure Performed Yes Yes -Type of Procedure Debridement Debridement -Clinical Debridement Subcutaneous Subcutaneous -Tissue Removed Subcutaneous Subcutaneous -Post Debridement (cm) - Length 1.6 1.2 -Post Debridement (cm) - Width 2.3 2.4 -Post Debridement (cm) - Depth 0.2 0.3 -Total Square (Post) (cm) 3.68 2.88 -Area of Debridement (cm) - Length 1.6 1.2 -Area of Debridement (cm) - Width 2.3 2.4 -Total Square (Area) (cm) 3.68 2.88 -Tunneling No No -Undermining/Tunneling No No -Circular Undermining No No -Wound/Ulcer Outcome Not Healed Not Healed -Ulcer Cleansing Rinsed/ Rinsed/ Irrigated with Irrigated with Saline Saline -Foul Odor after Cleansing No No -Bioengineered Tissue No No -Bleeding Controlled with Pressure Pressure -Offloading No No -Treatment Response Procedure Procedure Tolerated Well Tolerated Well -Debridement - Subq, 1st 20sq cm No No Pain Scale: 0-10 Numeric Is Patient Pain Free? Yes Yes - Nurse 3 - General Ulcer D/C NN Start: 10/17/20 11:16 Freq: Status: Active Protocol: Activity Type Activity Date Activity User E-Sign Co-Sign Detail Recorded Client Recorded Date Recorded By Document 10/17/20 12:03 DL [id number] 10/17/20 12:07 DL Document 10/31/20 11:54 RB [id number] 10/31/20 11:57 RB 10/17/20 10/31/20 12:03 11:54 Wound Care Nurse 3 #49 R Dorsal -Ulcer Cleansing Wound Cleanser Rinsed/ Irrigated with Saline -Foul Odor after Cleansing No -Other Dressing Dakins dakins moistened gauze -Primary Dressing Covered/Secured with Dry Gauze & Dry Gauze,Dry Roll Gauze, Gauze & Roll Secured with Gauze,Secured Tape with Tape #47- R SUPERIOR CALF -Ulcer Cleansing Wound Cleanser -Foul Odor after Cleansing No -Primary Dressing Applied NonAdherent Contact Layer -Primary Dressing Covered/Secured with Dry Gauze & Roll Gauze, Secured with Tape 46-right 2nd toe -Ulcer Cleansing Wound Cleanser -Foul Odor after Cleansing No -Other Dressing Dakins dakins moistened guaze -Primary Dressing Covered/Secured with Dry Gauze & Dry Gauze,Dry Roll Gauze, Gauze & Roll Secured with Gauze,Secured Tape with Tape #35 L Stump -Ulcer Cleansing Wound Cleanser Rinsed/ Irrigated with Saline -Foul Odor after Cleansing No -Other Dressing Dakins dakins moistened guaze -Primary Dressing Covered/Secured with Dry Gauze & Dry Gauze,Dry Roll Gauze, Gauze & Roll Secured with Gauze,Secured Tape with Tape Right -Other circaid Left -Other single tubigrip Treatment Response Procedure Tolerated Well Pain Scale: 0-10 Numeric Is Patient Pain Free? Yes WC - Visit Discharge Discharge Condition Stable Ambulatory Status Wheelchair Transportation Private Auto Medication Reconcilliation completed & No provided to patient/care provider Clinical Summary of Care Provided Yes Wound debrided: Left leg, medial right second toe, dorsal right foot Wound Grade/Stage: 1 Type of Debridement: Excisional debridement Anesthesia Used: 4% Lidocaine Solution Depth: in the subcutaneous layer Percentage of wound debrided: 100 Instrument Used: #15 blade Tissue Removed: fibrous, devitalized subcutaneous, biofilm, slough Severity: Fat Layer Exposed Amount of bleeding with debridement: Mild Bleeding Controlled with: Pressure Patient tolerated procedure: Patient tolerated procedure well Assessment/Plan Assessment/Plan (1) Ulcer of left lower extremity with fat layer exposed: CODE(S): L97.922 - Non-pressure chronic ulcer of unspecified part of left lower leg with fat layer exposed (2) Ulcer of right foot with fat layer exposed: CODE(S): L97.512 - Non-pressure chronic ulcer of other part of right foot with fat layer exposed (3) Delayed wound healing: CODE(S): T14.8XXD - Other injury of unspecified body region, subsequent encounter (4) Type 2 diabetes mellitus with diabetic polyneuropathy: CODE(S): E11.42 - Type 2 diabetes mellitus with diabetic polyneuropathy (5) Localized edema: CODE(S): R60.0 - Localized edema (6) Blister of right leg: CODE(S): S80.821A - Blister (nonthermal), right lower leg, initial encounter (7) Ulcer of right lower extremity with fat layer exposed: CODE(S): L97.912 - Non-pressure chronic ulcer of unspecified part of right lower leg with fat layer exposed PLAN: I reviewed and discussed his case. His ulcer was debrided as noted. He was reassured no local signs of infection are seen. The sites were debrided bilateral. To change dressing daily with dakin wet to dry dressing right foot and left leg. Labs from [facility] on 04-30-20 were also reviewed as the following: wbc 5.61, Cr 1.71, GFR 41, albumin 1.9, crp 16.1, ESR 89. His hemoglobin A1c is significantly improved to 6.9%. His prior foot x-rays did not have soft tissue emphysema but there was disintegration of the distal second toe and his injury and now concern of infection site. To continue with right lower extremity surgical shoe. Extra-depth diabetic shoes will be considered after his maceration, ulcer healed, and edema are controlled. To continue with automated wheelchair. To continue to optimize healing with improved glycemic index, continued weight reduction, and well-balanced [employer] nutrients. To continue with edema management including his compression wraps and also lymphedema pumps. It is noted he has not been able to elevate as much this past week and has increased edema. Additional Mateus wrap was applied prior to Tub igrip application splint to help reduce stump edema. To reduce salt in diet; this was discussed. To follow-up with primary care physician to see if restarting Lasix is appropriate. His poor lower extremity hygiene is noted and is absolutely contributing to his delay in healing, skin compromise and new ulcer formation. To continue with showering routine. To resume applying Lac-Hydrin lotion. He completed course of advanced wound healing product application, epi fix. Note: Premise speech recognition dairy department manager software was used to create portions of this document. Sound-alike and misspelled words, as well as other dairy department manager errors may be contained in the documentation.
[2020-11-07 11:12] VITALS: BP 157/45; PULSE 57; RESP 20; TEMP 36.3; BMI 43.2
--- NOTE | 2020-11-07 12:03 | PCM.WC.PN ---
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 He also has multiple right foot ulcers and a left leg ulcer, and has been performing dressing changes as advised. He denies fever, chill, nausea, vomiting, redness, or odor. He denies odor, or drainage. His leg swelling is continued but decreased since he resumed lasix this past week. He change the dressing everyday with Dakin's and he has been able to take showers 2-3 times per week also. He has decreased green drainage to the dressings. Progress of Wound: improved right foot Stable left leg Objective Data Objective Data Vital Signs: Vital Signs Temp Pulse Resp BP 97.4 F L 57 L 20 H 157/45 H 11/07/20 11:12 11/07/20 11:12 11/07/20 11:12 11/07/20 11:12 Body Mass Index (BMI) 43.2 Physical Exam Extremity Extremity Narrative: No calf tenderness Diminished pulses Muscle wasting noted Left below-knee amputation and right hallux amputation Compartments remain soft to palpate bilateral lower extremities Skin Skin Narrative: no purulence, no streaking, no odor, no infection. Full epithelialization and healed to medial right forefoot. granular based medial second toe are stable; decreased in size. Skin peeling to the dorsal foot with maceration decreased and full epithelialization noted. Left leg stump site ulcer has granular and fibrous base also; unchanged. The adjacent skin is hairless and atrophic. Neuro Neuro Narrative: lack of normal epicritic sensation via light touch is consistent with neuropathy status Debridement Note Debridement Note Post-Debridement Measurements and Additional Note: Post-Debridement Measurements/Treatment WC - Nurse 1 - General Ulcer Assessment Start: 10/17/20 11:16 Freq: Status: Active Protocol: [email or web address].IOANA Activity Type Activity Date Activity User E-Sign Co-Sign Detail Recorded Client Recorded Date Recorded By Document 10/17/20 12:00 DL [id number] 10/17/20 12:03 DL Document 10/31/20 11:11 RB [id number] 10/31/20 11:21 RB Document 11/07/20 11:12 DL [id number] 11/07/20 11:18 DL 10/17/20 10/31/20 11/07/20 12:00 11:11 11:12 - Today's Visit Information Type of service Follow-up Visit Follow-up Visit Follow-up Visit (Physician/CRATING AND MOVING ESTIMATOR (Physician/CRATING AND MOVING ESTIMATOR (Physician/CRATING AND MOVING ESTIMATOR ) ) ) Arrival Mode Wheelchair Wheelchair Wheelchair Transfer Assistance None None None Patient Identification Verified (Name & Yes Yes ) Patient Requires Transmission-Based No No No Precautions Finger Stick Blood Sugar(mg/dl) (if 124 100 indicated): Blood Sugar Stated by Stated by Patient Patient Height and Weight Body Mass Index (BMI) 43.2 43.2 43.2 BMI Classification Obese Obese Obese Vital Signs Temperature (97.8 F-99.1 F) 97.8 F 98.1 F 97.4 F L Temperature Source Temporal Temporal Temporal Pulse Rate (60-100) 77 65 57 L Pulse Location Monitor Monitor Monitor Respiratory Rate (12-18) 20 H 18 20 H Respiratory rate source Observation Observation Observation Blood Pressure (90/60-120/80) 144/77 H 176/71 H 157/45 H Blood Pressure Mean (mm Hg) 99 106 82 Source Monitor Monitor Monitor Position Semi-Fowlers Blood Pressure Location Left Arm History Since Last Visit- (Skip if this is Patient's initial visit) Have you changed medications since your No No No last visit? Any new allergies or adverse reactions No No No Had a fall/change in ADL's that may No No No increase risk of falls Signs or symptoms of abuse and/or No No No neglect since last visit Have you been in the hospital since your No No No last visit? Has dressing in place as prescribed Yes Yes Yes Has compression in place as prescribed Yes Yes Yes Has offloadiing in place as prescribed Yes No Yes Experienced any changes in pain level or No No No management Left Footwear No Footwear Right Footwear Removable Cast Surgical Shoe Walker/Walking with pressure Boot relief insole Pain Scale: 0-10 Numeric Is Patient Pain Free? Yes Yes Yes - Nurse 1 - General Ulcer Measurement Start: 10/17/20 11:16 Freq: Status: Active Protocol: Activity Type Activity Date Activity User E-Sign Co-Sign Detail Recorded Client Recorded Date Recorded By Document 10/17/20 12:00 DL [id number] 10/17/20 12:03 DL Document 10/31/20 11:11 RB [id number] 08/18/21 11:21 RB Document 11/07/20 11:12 DL [id number] 11/07/20 11:18 DL 10/17/20 10/31/20 11/07/20 12:00 11:11 11:12 Wound Center Nurse 1 #49 R Dorsal -Combined with other wound No -Current Size (cm) - Length 3.1 4.5 7 -Current Size (cm) - Width 6.8 9.4 9.5 -Current Size (cm) - Depth 0.1 0.1 0.1 -Total Square Cm 21.08 42.30 66.5 -Photo Taken No No -Tunneling No -Undermining/Tunneling No -Circular Undermining No -Exudate Amt Large Large Medium -Exudate Type Yellow/Green Serosanguineous Serosanguineous -Wound Margin Indistinct, Non Distinct, Indistinct, Non -Visible Outline -Visible Attached -Granulation Amt Medium (34-66%) Medium (34-66%) Medium (34-66%) -Granulation Quality Pale [place] -Slough/Fibrin Yes -Necrosis Amt Medium (34-66%) Medium (34-66%) Medium (34-66%) -Necrotic Tissue Type Eschar Adherent Slough Adherent Slough -Structure Exposed N/A N/A N/A -Texture (Susy-wound Skin Appearance) Scarring Assessed Scarring -Moisture (Susy-wound Skin Appearance) Maceration Maceration Weeping -Color (Susy-wound Skin Appearance) Hemosiderin Assessed Hemosiderin Staining Staining -Temperature (Susy-wound Skin No Abnormality No Abnormality No Abnormality Appearance) (Pt Warm) (Pt Warm) (Pt Warm) -Tenderness on Palpation (Susy-wound No No No Skin Appearance) -Ulcer Cleansing Wound Cleanser Wound Cleanser Wound Cleanser -Foul Odor after Cleansing Yes No No -Anesthetic Used 4% Lidocaine 4% Lidocaine 4% Lidocaine Solution Solution,5% Solution Lidocaine Gel #47- R SUPERIOR CALF -Combined with other wound No -Current Size (cm) - Length 0.1 -Current Size (cm) - Width 0.1 -Current Size (cm) - Depth 0.1 -Total Square Cm 0.01 -Tunneling No -Undermining/Tunneling No -Circular Undermining No -Exudate Amt Small -Exudate Type Serosanguineous -Wound Margin Distinct, Outline Attached -Granulation Amt Medium (34-66%) -Granulation Quality [place] -Slough/Fibrin Yes -Necrosis Amt Medium (34-66%) -Necrotic Tissue Type Adherent Slough -Structure Exposed N/A -Texture (Susy-wound Skin Appearance) Assessed -Moisture (Susy-wound Skin Appearance) Assessed -Color (Susy-wound Skin Appearance) Assessed -Temperature (Susy-wound Skin No Abnormality Appearance) (Pt Warm) -Tenderness on Palpation (Susy-wound No Skin Appearance) -Ulcer Cleansing Wound Cleanser -Foul Odor after Cleansing No -Anesthetic Used 4% Lidocaine Solution,5% Lidocaine Gel 46-right 2nd toe -Combined with other wound No -Current Size (cm) - Length 1.8 2 0.4 -Current Size (cm) - Width 0.2 2 0.6 -Current Size (cm) - Depth 0.3 0.1 0.3 -Total Square Cm 0.36 4 0.24 -Photo Taken No No -Tunneling No -Undermining/Tunneling No -Circular Undermining No -Exudate Amt Small Large Medium -Exudate Type Serosanguineous Serosanguineous Serosanguineous -Wound Margin Indistinct, Non Distinct, Distinct, -Visible Outline Outline Attached Attached -Granulation Amt Small (1-33%) Medium (34-66%) Medium (34-66%) -Granulation Quality Pale,[place] -Slough/Fibrin Yes -Necrosis Amt Small (1-33%) Medium (34-66%) Medium (34-66%) -Necrotic Tissue Type Adherent Slough Adherent Slough Adherent Slough -Structure Exposed N/A N/A N/A -Texture (Susy-wound Skin Appearance) Scarring Assessed Scarring -Moisture (Susy-wound Skin Appearance) Maceration, Maceration Weeping Weeping -Color (Susy-wound Skin Appearance) Hemosiderin Assessed Hemosiderin Staining Staining -Temperature (Susy-wound Skin No Abnormality No Abnormality No Abnormality Appearance) (Pt Warm) (Pt Warm) (Pt Warm) -Tenderness on Palpation (Susy-wound No No No Skin Appearance) -Ulcer Cleansing Wound Cleanser Wound Cleanser Wound Cleanser -Foul Odor after Cleansing No No No -Anesthetic Used 4% Lidocaine 4% Lidocaine 4% Lidocaine Solution Solution,5% Solution Lidocaine Gel #35 L Stump -Combined with other wound No -Current Size (cm) - Length 1.5 1.2 1.5 -Current Size (cm) - Width 2.3 2.3 2.3 -Current Size (cm) - Depth 0.2 0.5 0.4 -Total Square Cm 3.45 2.76 3.45 -Photo Taken No No -Tunneling No -Undermining/Tunneling No -Circular Undermining No -Exudate Amt Small Large Medium -Exudate Type Serosanguineous Serosanguineous Serosanguineous -Wound Margin Distinct, Distinct, Distinct, Outline Outline Outline Attached Attached Attached -Granulation Amt Medium (34-66%) Medium (34-66%) Medium (34-66%) -Granulation Quality Pale,[place] Red -Slough/Fibrin Yes -Necrosis Amt Medium (34-66%) Medium (34-66%) Medium (34-66%) -Necrotic Tissue Type Adherent Slough Adherent Slough Adherent Slough -Structure Exposed N/A N/A N/A -Texture (Susy-wound Skin Appearance) Scarring Assessed Scarring -Moisture (Susy-wound Skin Appearance) Dry/Scaly Maceration No Abnormality -Color (Susy-wound Skin Appearance) No Abnormality Assessed Hemosiderin Staining -Temperature (Susy-wound Skin No Abnormality No Abnormality No Abnormality Appearance) (Pt Warm) (Pt Warm) (Pt Warm) -Tenderness on Palpation (Susy-wound No No No Skin Appearance) -Ulcer Cleansing Wound Cleanser Wound Cleanser Wound Cleanser -Foul Odor after Cleansing No No No -Anesthetic Used 4% Lidocaine 4% Lidocaine 4% Lidocaine Solution Solution,5% Solution Lidocaine Gel Lower Limb Edema Present Yes Right Calf (cm) 41.5 465 Right Ankle (cm) 28.1 30.2 WC - Nurse 2 - General Ulcer CM Notes Start: 10/17/20 11:16 Freq: Status: Active Protocol: Activity Type Activity Date Activity User E-Sign Co-Sign Detail Recorded Client Recorded Date Recorded By Document 10/17/20 11:44 NORRIS [id number] 10/17/20 11:51 Document 10/31/20 11:43 NORRIS [id number] 10/31/20 11:49 JF Document 11/07/20 11:32 NORRIS [id number] 11/07/20 11:36 JF 10/17/20 10/31/20 11/07/20 11:44 11:43 11:32 Wound Center Nurse 2 #49 R Dorsal -Time 11:45 11:44 11:33 -Correct Patient Yes Yes No -Correct Side, Site, Position Yes Yes No -Correct Procedure Yes Yes No -Procedure Performed Yes Yes No -Type of Procedure Debridement Debridement -Clinical Debridement Subcutaneous Subcutaneous -Tissue Removed Subcutaneous Subcutaneous -Post Debridement (cm) - Length 3.2 4.5 0.1 -Post Debridement (cm) - Width 6.8 1.0 0.1 -Post Debridement (cm) - Depth 1 0.1 0.1 -Total Square (Post) (cm) 21.76 4.50 0.01 -Area of Debridement (cm) - Length 3.2 4.5 0.1 -Area of Debridement (cm) - Width 6.8 1.0 0.1 -Total Square (Area) (cm) 21.76 4.50 0.01 -Tunneling No No -Undermining/Tunneling No No -Circular Undermining No No -Wound/Ulcer Outcome Not Healed Not Healed Not Healed -Ulcer Cleansing Rinsed/ Irrigated with Saline -Foul Odor after Cleansing No No -Bioengineered Tissue No No -Bleeding Controlled with Pressure Pressure -Offloading No Yes -Type of Offloading Surgical Shoe -Treatment Response Procedure Procedure Tolerated Well Tolerated Well -Debridement - Subq, 1st 20sq cm Yes Yes -Debridement, SubQ, ea addt'l 20sq cm 1 or part thereof #47- R SUPERIOR CALF -Time 11:46 -Correct Patient Yes No -Correct Side, Site, Position Yes No -Correct Procedure Yes No -Procedure Performed Yes No -Type of Procedure Debridement -Clinical Debridement Subcutaneous -Tissue Removed Subcutaneous -Post Debridement (cm) - Length 3 0 -Post Debridement (cm) - Width 4 0 -Post Debridement (cm) - Depth 0.1 0 -Total Square (Post) (cm) 12 0 -Area of Debridement (cm) - Length 3 0 -Area of Debridement (cm) - Width 4 0 -Total Square (Area) (cm) 12 0 -Tunneling No -Undermining/Tunneling No -Circular Undermining No -Wound/Ulcer Outcome Not Healed Healed- Epithelialized -Ulcer Cleansing Rinsed/ Irrigated with Saline -Foul Odor after Cleansing No -Bioengineered Tissue No -Bleeding Controlled with Pressure -Offloading No -Treatment Response Procedure Tolerated Well -Debridement - Subq, 1st 20sq cm No 46-right 2nd toe -Time 11:45 11:45 11:35 -Correct Patient Yes Yes Yes -Correct Side, Site, Position Yes Yes Yes -Correct Procedure Yes Yes Yes -Procedure Performed Yes Yes Yes -Type of Procedure Debridement Debridement Debridement -Clinical Debridement Subcutaneous Subcutaneous Subcutaneous -Tissue Removed Subcutaneous Subcutaneous Subcutaneous -Post Debridement (cm) - Length 0.1 2.0 0.5 -Post Debridement (cm) - Width 0.2 0.5 0.8 -Post Debridement (cm) - Depth 0.1 0.1 0.3 -Total Square (Post) (cm) 0.02 1.00 0.40 -Area of Debridement (cm) - Length 0.1 2.0 0.5 -Area of Debridement (cm) - Width 0.2 0.5 0.8 -Total Square (Area) (cm) 0.02 1.00 0.40 -Tunneling No No No -Undermining/Tunneling No No No -Circular Undermining No No No -Wound/Ulcer Outcome Not Healed Not Healed Not Healed -Ulcer Cleansing Rinsed/ Rinsed/ Rinsed/ Irrigated with Irrigated with Irrigated with Saline Saline Saline -Foul Odor after Cleansing No No No -Bioengineered Tissue No No No -Bleeding Controlled with Pressure Pressure Pressure -Offloading Yes Yes No -Type of Offloading Surgical Shoe Surgical Shoe -Treatment Response Procedure Procedure Procedure Tolerated Well Tolerated Well Tolerated Well -Debridement - Subq, 1st 20sq cm No No No #35 L Stump -Time 11:47 11:45 11:32 -Correct Patient Yes Yes Yes -Correct Side, Site, Position Yes Yes Yes -Correct Procedure Yes Yes Yes -Procedure Performed Yes Yes Yes -Type of Procedure Debridement Debridement Debridement -Clinical Debridement Subcutaneous Subcutaneous Subcutaneous -Tissue Removed Subcutaneous Subcutaneous Subcutaneous -Post Debridement (cm) - Length 1.6 1.2 1.5 -Post Debridement (cm) - Width 2.3 2.4 2.4 -Post Debridement (cm) - Depth 0.2 0.3 0.4 -Total Square (Post) (cm) 3.68 2.88 3.60 -Area of Debridement (cm) - Length 1.6 1.2 1.5 -Area of Debridement (cm) - Width 2.3 2.4 2.4 -Total Square (Area) (cm) 3.68 2.88 3.60 -Tunneling No No No -Undermining/Tunneling No No No -Circular Undermining No No No -Wound/Ulcer Outcome Not Healed Not Healed Not Healed -Ulcer Cleansing Rinsed/ Rinsed/ Rinsed/ Irrigated with Irrigated with Irrigated with Saline Saline Saline -Foul Odor after Cleansing No No No -Bioengineered Tissue No No No -Bleeding Controlled with Pressure Pressure Pressure -Offloading No No No -Treatment Response Procedure Procedure Procedure Tolerated Well Tolerated Well Tolerated Well -Debridement - Subq, 1st 20sq cm No No Yes Pain Scale: 0-10 Numeric Is Patient Pain Free? Yes Yes Yes WC - Nurse 3 - General Ulcer D/C NN Start: 10/17/20 11:16 Freq: Status: Active Protocol: Activity Type Activity Date Activity User E-Sign Co-Sign Detail Recorded Client Recorded Date Recorded By Document 10/17/20 12:03 DL [id number] 10/17/20 12:07 DL Document 10/31/20 11:54 RB [id number] 10/31/20 11:57 RB Document 11/07/20 11:47 RB [id number] 11/07/20 11:51 RB 10/17/20 10/31/20 11/07/20 12:03 11:54 11:47 Wound Care Nurse 3 #49 R Dorsal -Ulcer Cleansing Wound Cleanser Rinsed/ Rinsed/ Irrigated with Irrigated with Saline Saline -Foul Odor after Cleansing No -Other Dressing [facility] .25% moistened gauze solution moistened gauze to all wounds -Primary Dressing Covered/Secured with Dry Gauze & Dry Gauze,Dry Dry Gauze,Dry Roll Gauze, Gauze & Roll Gauze & Roll Secured with Gauze,Secured Gauze,Secured Tape with Tape with Tape #47- R SUPERIOR CALF -Ulcer Cleansing Wound Cleanser -Foul Odor after Cleansing No -Primary Dressing Applied NonAdherent Contact Layer -Primary Dressing Covered/Secured with Dry Gauze & Roll Gauze, Secured with Tape 46-right 2nd toe -Ulcer Cleansing Wound Cleanser -Foul Odor after Cleansing No -Other Dressing [facility] moistened guaze moistened gauze -Primary Dressing Covered/Secured with Dry Gauze & Dry Gauze,Dry Dry Gauze,Dry Roll Gauze, Gauze & Roll Gauze & Roll Secured with Gauze,Secured Gauze,Secured Tape with Tape with Tape #35 L Stump -Ulcer Cleansing Wound Cleanser Rinsed/ Irrigated with Saline -Foul Odor after Cleansing No -Other Dressing Dakins dakins dakins moistened guaze moistened gauze -Primary Dressing Covered/Secured with Dry Gauze & Dry Gauze,Dry Dry Gauze,Dry Roll Gauze, Gauze & Roll Gauze & Roll Secured with Gauze,Secured Gauze,Secured Tape with Tape with Tape Right -Other circaid single layer tubigrip Left -Other single tubigrip single layer tubigrip, circaid bilateral Treatment Response Procedure Procedure Tolerated Well Tolerated Well Pain Scale: 0-10 Numeric Is Patient Pain Free? Yes Yes WC - Visit Discharge Discharge Condition Stable Stable Ambulatory Status Wheelchair Wheelchair Transportation Private Auto Private Auto Medication Reconcilliation completed & No No provided to patient/care provider Clinical Summary of Care Provided Yes Yes Wound debrided: left leg (stump site) and medial second right toe Wound Grade/Stage: 1 Type of Debridement: Excisional debridement Anesthesia Used: 4% Lidocaine Solution Depth: in the subcutaneous layer Percentage of wound debrided: 100 Instrument Used: #15 blade Tissue Removed: fibrous, devitalized subcutaneous, biofilm, slough Severity: Fat Layer Exposed Amount of bleeding with debridement: Mild Bleeding Controlled with: Pressure Patient tolerated procedure: Patient tolerated procedure well Assessment/Plan Assessment/Plan (1) Ulcer of left lower extremity with fat layer exposed: CODE(S): L97.922 - Non-pressure chronic ulcer of unspecified part of left lower leg with fat layer exposed (2) Ulcer of right foot with fat layer exposed: CODE(S): L97.512 - Non-pressure chronic ulcer of other part of right foot with fat layer exposed (3) Delayed wound healing: CODE(S): T14.8XXD - Other injury of unspecified body region, subsequent encounter (4) Type 2 diabetes mellitus with diabetic polyneuropathy: CODE(S): E11.42 - Type 2 diabetes mellitus with diabetic polyneuropathy (5) Localized edema: CODE(S): R60.0 - Localized edema (6) Ulcer of right lower extremity with fat layer exposed: CODE(S): L97.912 - Non-pressure chronic ulcer of unspecified part of right lower leg with fat layer exposed (7) Maceration of skin: CODE(S): L98.8 - Other specified disorders of the skin and subcutaneous tissue (8) Lymphedema: CODE(S): I89.0 - Lymphedema, not elsewhere classified PLAN: I reviewed and discussed his case. His ulcer were debrided as noted. He was reassured no local signs of infection are seen. To change dressing daily with dakin wet to dry dressing right foot and left leg. It is okay to continue clean the leg with Hibiclens for an additional week. Labs from [facility] on 04-30-20 were also reviewed as the following: wbc 5.61, Cr 1.71, GFR 41, albumin 1.9, crp 16.1, ESR 89. His hemoglobin A1c is significantly improved to 6.9%. His prior foot x-rays did not have soft tissue emphysema but there was disintegration of the distal second toe and his injury and now concern of infection site. To continue with right lower extremity surgical shoe. Extra-depth diabetic shoes will be considered after his maceration, ulcer healed, and edema are controlled. To continue with automated wheelchair. To continue to optimize healing with improved glycemic index, continued weight reduction, and well-balanced [employer] nutrients. To continue with edema management including his compression wraps and also lymphedema pumps. It is noted he has not been able to elevate as much this past week and has increased edema. Additional [place] wrap was applied prior to Tubigrip application splint to help reduce stump edema. To reduce salt in diet; this was discussed. He has resumed Lasix and was advised to continue his advised by his primary care physician. [place]arrow wrap was ordered for the right lower extremity. Leg circumference and leg length measurements were obtained today. This is medically necessary to prevent recurrence of leg ulcers and also to help heal his current limb ulcers. To continue with showering routine. To resume applying Lac-Hydrin lotion. He completed course of advanced wound healing product application, epi fix. Note: [employer] speech recognition fire tower keeper software was used to create portions of this document. Sound-alike and misspelled words, as well as other fire tower keeper errors may be contained in the documentation. Improvement is noted. The medical decision making level is low. There is noted low risk of morbidity after considering this treatment plan and diagnostic data. The problems addressed require a low medical decision making level which includes two or more minor problems, a stable chronic illness, or an acute uncomplicated illness or injury.
== END 2020-11-13 23:59 ==
LOC: WC 11:15
PROVIDERS: PCP Family Medicine; Visit Provider Podiatrist
DX: E11.622 Type 2 diabetes mellitus with other skin ulcer (principal); M79.89 Other specified soft tissue disorders; L97.822 Non-pressure chronic ulcer of other part of left lower leg with fat layer exposed; E11.42 Type 2 diabetes mellitus with diabetic polyneuropathy; S80.821D Blister (nonthermal), right lower leg, subsequent encounter; X58.XXXD Exposure to other specified factors, subsequent encounter; R60.0 Localized edema; E11.621 Type 2 diabetes mellitus with foot ulcer; L97.512 Non-pressure chronic ulcer of other part of right foot with fat layer exposed; I89.0 Lymphedema, not elsewhere classified
CPT/HCPCS: 11042; 11045

== ENCOUNTER 2020-12-05 11:15 | Outpatient (RCR) | payer MEDICARE, MEDICAID, SELFPAY ==
[2020-11-14 00:25] VITALS: BP 157/45; PULSE 57; RESP 20; TEMP 36.3; BMI 43.2
[2020-11-14 11:10] VITALS: BP 178/53; PULSE 58; RESP 16; TEMP 36.8; BMI 43.2
--- NOTE | 2020-11-14 15:59 | PCM.WC.PN ---
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 He also has multiple right foot ulcers and a left leg ulcer, and has been performing dressing changes as advised. He denies fever, chill, nausea, vomiting, redness, or odor. He denies odor, or drainage. His leg swelling is continued but decreased since he resumed lasix. He change the dressing everyday with Dakin's and he has been able to take showers 2-3 times per week also. He has a new right leg ulcer that happened when his new farrow wrap made contact with this upper leg skin. Progress of Wound: stable Objective Data Objective Data Vital Signs: Vital Signs Temp Pulse Resp BP 98.3 F 58 L 16 178/53 H 11/14/20 11:10 11/14/20 11:10 11/14/20 11:10 11/14/20 11:10 Oxygen Delivery Method Room Air Body Mass Index (BMI) 43.2 Physical Exam Extremity Extremity Narrative: No calf tenderness Diminished pulses Muscle wasting noted Left below-knee amputation and right hallux amputation Compartments remain soft to palpate bilateral lower extremities Skin Skin Narrative: no purulence, no streaking, no odor, no infection. Full epithelialization and healed to medial right forefoot. granular based medial second toe are stable; decreased in size. Skin peeling to the dorsal foot with maceration decreased and full epithelialization noted. Left leg stump site ulcer has granular and fibrous base also; unchanged. The adjacent skin is hairless and atrophic. new ulcer posterior proximal right leg w/ granular base and not deep tissue exposure, necrosis or infection. Neuro Neuro Narrative: lack of normal epicritic sensation via light touch is consistent with neuropathy status Debridement Note Debridement Note Wound debrided: right leg, right second toe, left leg (stump) Wound Grade/Stage: all grade 1 Type of Debridement: Excisional debridement Anesthesia Used: 4% Lidocaine Solution Depth: in the subcutaneous layer Percentage of wound debrided: 100 Instrument Used: #15 blade Tissue Removed: fibrous, devitalized subcutaneous, biofilm, slough Severity: Fat Layer Exposed Amount of bleeding with debridement: Mild Bleeding Controlled with: Pressure Patient tolerated procedure: Patient tolerated procedure well Post-Debridement Measurements and Additional Note: Post-Debridement Measurements/Treatment WC - Nurse 1 - General Ulcer Assessment Start: 11/14/20 11:10 Freq: Status: Active Protocol: SUSAN Activity Type Activity Date Activity User E-Sign Co-Sign Detail Recorded Client Recorded Date Recorded By Document 11/14/20 11:10 [facility] [id number] 11/14/20 11:24 [facility] 11/14/20 11:10 - Today's Visit Information Type of service Follow-up Visit (Physician/SECURITY AUDITOR ) Arrival Mode Wheelchair Transfer Assistance None Patient Identification Verified (Name & Yes ) Patient Requires Transmission-Based No Precautions Finger Stick Blood Sugar(mg/dl) (if 129 indicated): Blood Sugar Stated by Patient Height and Weight Body Mass Index (BMI) 43.2 BMI Classification Obese Vital Signs Temperature (97.8 F-99.1 F) 98.3 F Temperature Source Temporal Pulse Rate (60-100) 58 L Pulse Location Monitor Respiratory Rate (12-18) 16 Respiratory rate source Observation Oxygen Delivery Method Room Air Blood Pressure (90/60-120/80) 178/53 H Blood Pressure Mean (mm Hg) 94 Source Monitor Position Sitting Blood Pressure Location Left Forearm History Since Last Visit- (Skip if this is Patient's initial visit) Have you changed medications since your No last visit? Any new allergies or adverse reactions No Had a fall/change in ADL's that may No increase risk of falls Signs or symptoms of abuse and/or No neglect since last visit Have you been in the hospital since your No last visit? Has dressing in place as prescribed Yes Has compression in place as prescribed Yes Has offloadiing in place as prescribed Yes Experienced any changes in pain level or No management Right Footwear Surgical Shoe with pressure relief insole Pain Scale: 0-10 Numeric Is Patient Pain Free? Yes - Nurse 1 - General Ulcer Measurement Start: 11/14/20 11:10 Freq: Status: Active Protocol: Activity Type Activity Date Activity User E-Sign Co-Sign Detail Recorded Client Recorded Date Recorded By Document 11/14/20 11:10 [facility] [id number] 11/14/20 11:24 [facility] 11/14/20 11:10 Wound Center Nurse 1 #49 R Dorsal -Combined with other wound No -Current Size (cm) - Length 7 -Current Size (cm) - Width 10 -Current Size (cm) - Depth 0.1 -Total Square Cm 70 -Photo Taken No -Tunneling No -Undermining/Tunneling No -Circular Undermining No -Exudate Amt Medium -Exudate Type Serosanguineous -Wound Margin Distinct, Outline Attached -Granulation Amt Medium (34-66%) -Granulation Quality [place] -Slough/Fibrin Yes -Necrosis Amt Small (1-33%) -Structure Exposed N/A -Texture (Susy-wound Skin Appearance) Assessed,Callus -Moisture (Susy-wound Skin Appearance) Assessed -Color (Susy-wound Skin Appearance) Assessed -Temperature (Susy-wound Skin No Abnormality Appearance) (Pt Warm) -Tenderness on Palpation (Susy-wound No Skin Appearance) -Ulcer Cleansing Wound Cleanser -Foul Odor after Cleansing No -Anesthetic Used 4% Lidocaine Solution 46-right 2nd toe -Combined with other wound No -Current Size (cm) - Length 3.5 -Current Size (cm) - Width 0.3 -Current Size (cm) - Depth 0.6 -Total Square Cm 1.05 -Tunneling No -Undermining/Tunneling No -Circular Undermining No -Exudate Amt Medium -Exudate Type Serosanguineous -Wound Margin Distinct, Outline Attached -Granulation Amt Medium (34-66%) -Granulation Quality [place] -Necrosis Amt Medium (34-66%) -Necrotic Tissue Type Adherent Slough -Structure Exposed N/A -Texture (Susy-wound Skin Appearance) Assessed,Callus -Moisture (Susy-wound Skin Appearance) Assessed -Color (Susy-wound Skin Appearance) Assessed -Temperature (Susy-wound Skin No Abnormality Appearance) (Pt Warm) -Tenderness on Palpation (Susy-wound No Skin Appearance) -Ulcer Cleansing Wound Cleanser -Foul Odor after Cleansing No -Anesthetic Used 4% Lidocaine Solution #35 L Stump -Combined with other wound No -Current Size (cm) - Length 1.3 -Current Size (cm) - Width 2 -Current Size (cm) - Depth 0.4 -Total Square Cm 2.6 -Tunneling No -Undermining/Tunneling No -Circular Undermining No -Exudate Amt Medium -Exudate Type Serosanguineous -Wound Margin Distinct, Outline Attached -Granulation Amt Medium (34-66%) -Granulation Quality [place] -Slough/Fibrin Yes -Necrosis Amt Small (1-33%) -Necrotic Tissue Type Adherent Slough -Structure Exposed N/A -Texture (Susy-wound Skin Appearance) Assessed -Moisture (Susy-wound Skin Appearance) Assessed,Dry/ Scaly -Color (Susy-wound Skin Appearance) Assessed -Temperature (Susy-wound Skin No Abnormality Appearance) (Pt Warm) -Tenderness on Palpation (Susy-wound No Skin Appearance) -Ulcer Cleansing Wound Cleanser -Foul Odor after Cleansing No -Anesthetic Used 4% Lidocaine Solution Lower Limb Edema Present Yes Right Calf (cm) 51.4 Right Ankle (cm) 29.6 WC - Nurse 2 - General Ulcer CM Notes Start: 11/14/20 11:10 Freq: Status: Active Protocol: Activity Type Activity Date Activity User E-Sign Co-Sign Detail Recorded Client Recorded Date Recorded By Document 11/14/20 11:42 [facility] [id number] 11/14/20 11:53 [facility] 11/14/20 11:42 Wound Center Nurse 2 50-RIGHT POSTERIOR LEG -Time 11:51 -Correct Patient Yes -Correct Side, Site, Position Yes -Correct Procedure Yes -Procedure Performed Yes -Type of Procedure Debridement -Clinical Debridement Subcutaneous -Tissue Removed Subcutaneous -Post Debridement (cm) - Length 1 -Post Debridement (cm) - Width 1.5 -Post Debridement (cm) - Depth 0.1 -Total Square (Post) (cm) 1.5 -Area of Debridement (cm) - Length 1 -Area of Debridement (cm) - Width 1.5 -Total Square (Area) (cm) 1.5 -Tunneling No -Undermining/Tunneling No -Circular Undermining No -Wound/Ulcer Outcome Not Healed -Ulcer Cleansing Rinsed/ Irrigated with Saline -Foul Odor after Cleansing No -Bioengineered Tissue No -Bleeding Controlled with Pressure -Offloading No -Treatment Response Procedure Tolerated Well -Debridement - Subq, 1st 20sq cm No #49 R Dorsal -Time 11:43 -Correct Patient Yes -Correct Side, Site, Position Yes -Correct Procedure Yes -Procedure Performed Yes -Type of Procedure Debridement -Clinical Debridement Subcutaneous -Tissue Removed Subcutaneous -Post Debridement (cm) - Length 0.7 -Post Debridement (cm) - Width 1 -Post Debridement (cm) - Depth 0.1 -Total Square (Post) (cm) 0.7 -Area of Debridement (cm) - Length 0.7 -Area of Debridement (cm) - Width 1 -Total Square (Area) (cm) 0.7 -Tunneling No -Undermining/Tunneling No -Circular Undermining No -Wound/Ulcer Outcome Not Healed -Ulcer Cleansing Rinsed/ Irrigated with Saline -Foul Odor after Cleansing No -Bioengineered Tissue No -Bleeding Controlled with Pressure -Offloading Yes -Type of Offloading Surgical Shoe -Treatment Response Procedure Tolerated Well -Debridement - Subq, 1st 20sq cm Yes 46-right 2nd toe -Time 11:46 -Correct Patient Yes -Correct Side, Site, Position Yes -Correct Procedure Yes -Procedure Performed Yes -Type of Procedure Debridement -Clinical Debridement Subcutaneous -Tissue Removed Subcutaneous -Post Debridement (cm) - Length 3.5 -Post Debridement (cm) - Width 0.4 -Post Debridement (cm) - Depth 0.5 -Total Square (Post) (cm) 1.40 -Area of Debridement (cm) - Length 3.5 -Area of Debridement (cm) - Width 0.4 -Total Square (Area) (cm) 1.40 -Tunneling No -Undermining/Tunneling No -Circular Undermining No -Wound/Ulcer Outcome Not Healed -Ulcer Cleansing Rinsed/ Irrigated with Saline -Foul Odor after Cleansing No -Bioengineered Tissue No -Bleeding Controlled with Pressure -Offloading Yes -Type of Offloading Surgical Shoe -Treatment Response Procedure Tolerated Well -Debridement - Subq, 1st 20sq cm No #35 L Stump -Time 11:47 -Correct Patient Yes -Correct Side, Site, Position Yes -Correct Procedure Yes -Procedure Performed Yes -Type of Procedure Debridement -Clinical Debridement Subcutaneous -Tissue Removed Subcutaneous -Post Debridement (cm) - Length 1.4 -Post Debridement (cm) - Width 2 -Post Debridement (cm) - Depth 0.4 -Total Square (Post) (cm) 2.8 -Area of Debridement (cm) - Length 1.4 -Area of Debridement (cm) - Width 2 -Total Square (Area) (cm) 2.8 -Tunneling No -Undermining/Tunneling No -Circular Undermining No -Wound/Ulcer Outcome Not Healed -Ulcer Cleansing Rinsed/ Irrigated with Saline -Foul Odor after Cleansing No -Bioengineered Tissue No -Bleeding Controlled with Pressure -Offloading No -Treatment Response Procedure Tolerated Well -Debridement - Subq, 1st 20sq cm No Pain Scale: 0-10 Numeric Is Patient Pain Free? Yes WC - Nurse 3 - General Ulcer D/C NN Start: 11/14/20 11:10 Freq: Status: Active Protocol: Activity Type Activity Date Activity User E-Sign Co-Sign Detail Recorded Client Recorded Date Recorded By Document 11/14/20 11:58 [facility] [id number] 11/14/20 12:01 [facility] 11/14/20 11:58 Wound Care Nurse 3 50-RIGHT POSTERIOR LEG -Ulcer Cleansing Rinsed/ Irrigated with Saline -Foul Odor after Cleansing No -Primary Dressing Applied NonAdherent Contact Layer -Other Dressing drsg per rb rn -Primary Dressing Covered/Secured with Dry Gauze & Roll Gauze, Secured with Tape #49 R Dorsal -Ulcer Cleansing Rinsed/ Irrigated with Saline -Foul Odor after Cleansing No -Primary Dressing Applied Aquacel Extra -Primary Dressing Covered/Secured with Dry Gauze & Roll Gauze, Secured with Tape -Other Covering drsg per rb rn -Aquacel Extra 1 46-right 2nd toe -Ulcer Cleansing Rinsed/ Irrigated with Saline -Foul Odor after Cleansing No -Primary Dressing Applied Aquacel Extra -Other Dressing drsg per rb rn -Primary Dressing Covered/Secured with Dry Gauze & Roll Gauze, Secured with Tape -Aquacel Extra 0 #35 L Stump -Ulcer Cleansing Rinsed/ Irrigated with Saline -Foul Odor after Cleansing No -Primary Dressing Applied Aquacel Extra -Primary Dressing Covered/Secured with Dry Gauze & Roll Gauze, Secured with Tape -Other Covering drsg per rb rn -Aquacel Extra 0 Treatment Response Procedure Tolerated Well Pain Scale: 0-10 Numeric Is Patient Pain Free? Yes WC - Visit Discharge Discharge Condition Stable Ambulatory Status Wheelchair Transportation [facility] Type Home Health Assessment/Plan Assessment/Plan (1) Ulcer of left lower extremity with fat layer exposed: CODE(S): L97.922 - Non-pressure chronic ulcer of unspecified part of left lower leg with fat layer exposed (2) Ulcer of right foot with fat layer exposed: CODE(S): L97.512 - Non-pressure chronic ulcer of other part of right foot with fat layer exposed (3) Delayed wound healing: CODE(S): T14.8XXD - Other injury of unspecified body region, subsequent encounter (4) Type 2 diabetes mellitus with diabetic polyneuropathy: CODE(S): E11.42 - Type 2 diabetes mellitus with diabetic polyneuropathy (5) Localized edema: CODE(S): R60.0 - Localized edema (6) Ulcer of right lower extremity with fat layer exposed: CODE(S): L97.912 - Non-pressure chronic ulcer of unspecified part of right lower leg with fat layer exposed (7) Maceration of skin: CODE(S): L98.8 - Other specified disorders of the skin and subcutaneous tissue (8) Lymphedema: CODE(S): I89.0 - Lymphedema, not elsewhere classified PLAN: I reviewed and discussed his case. His ulcer were debrided as noted. He was reassured no local signs of infection are seen. To change dressing daily with aqua cell ag to right leg (new), right foot, and left leg. It is okay to continue clean the leg with Hibiclens for an additional week. Labs from [facility] on 04-30-20 were also reviewed as the following: wbc 5.61, Cr 1.71, GFR 41, albumin 1.9, crp 16.1, ESR 89. His hemoglobin A1c is significantly improved to 6.9%. His prior foot x-rays did not have soft tissue emphysema but there was disintegration of the distal second toe and his injury and now concern of infection site. To continue with right lower extremity surgical shoe. Extra-depth diabetic shoes will be considered after his maceration, ulcer healed, and edema are controlled. To continue with automated wheelchair. To continue to optimize healing with improved glycemic index, continued weight reduction, and well-balanced [employer] nutrients. To continue with edema management including his compression wraps and also lymphedema pumps. It is noted he has not been able to elevate as much this past week and has increased edema. Additional [place]us wrap was applied prior to Tubigrip application splint to help reduce stump edema. To reduce salt in diet; this was discussed. He has resumed Lasix and was advised to continue his advised by his primary care physician. [place] wrap was ordered for the right lower extremity. Leg circumference and leg length measurements were obtained today. This is medically necessary to prevent recurrence of leg ulcers and also to help heal his current limb ulcers. To continue with showering routine. To resume applying Lac-Hydrin lotion. He completed course of advanced wound healing product application, epi fix. Note: [employer] speech recognition laminator hand software was used to create portions of this document. Sound-alike and misspelled words, as well as other laminator hand errors may be contained in the documentation.
[2020-11-28 11:05] VITALS: BP 161/70; PULSE 64; RESP 18; TEMP 36.3; BMI 43.2
--- NOTE | 2020-11-28 11:13 | WC ---
pt states went to [facility] with complaints of magots in wound .
--- NOTE | 2020-11-28 11:50 | PN.PCM_ITS ---
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 He also has multiple right foot ulcers and a left leg ulcer, and has been performing dressing changes as advised. He denies fever, chill, nausea, vomiting, redness, or odor. He denies odor. Increasing green drainage he reports his leg is only being washed with saline and no longer antibacterial soap which she is concerned about. He also reports Aquacel foam has been applied which I retain moisture. He had maggot infestation this past Thursday and went to the urgent center in [place] associated with [facility]. The maggots were removed with peroxide and it was noted he did not meet the need for admission. He denies additional maggot infestation. Progress of Wound: Worse status right foot New right leg ulcer Stable left leg ulcer Objective Data Objective Data Vital Signs: Vital Signs Temp Pulse Resp BP 97.4 F L 64 18 161/70 H 11/28/20 11:05 11/28/20 11:05 11/28/20 11:05 11/28/20 11:05 Oxygen Delivery Method Room Air Body Mass Index (BMI) 43.2 Physical Exam Extremity Extremity Narrative: No calf tenderness Diminished pulses Muscle wasting noted Left below-knee amputation and right hallux amputation Compartments remain soft to palpate bilateral lower extremities Skin Skin Narrative: no purulence, no streaking, no odor, no infection. Full epithelialization and healed to medial right forefoot. granular based medial second toe are stable; decreased in size. Skin peeling to the dorsal foot with maceration decreased and full epithelialization noted. Left leg stump site ulcer has granular and fibrous base also; unchanged. The adjacent skin is hairless and atrophic. ulcer posterior proximal right leg w/ granular base and not deep tissue exposure, necrosis or infection. Neuro Neuro Narrative: lack of normal epicritic sensation via light touch is consistent with neuropathy status Debridement Note Debridement Note Wound debrided: right posterior leg, right forefoot, left leg stump site Wound Grade/Stage: 1 Type of Debridement: Excisional debridement Anesthesia Used: 4% Lidocaine Solution Depth: in the subcutaneous layer Percentage of wound debrided: 100 Instrument Used: #15 blade Tissue Removed: fibrous, devitalized subcutaneous, biofilm, slough Severity: Fat Layer Exposed Amount of bleeding with debridement: Mild Bleeding Controlled with: Pressure Patient tolerated procedure: Patient tolerated procedure well Post-Debridement Measurements and Additional Note: Post-Debridement Measurements/Treatment XIMENA - Nurse 1 - General Ulcer Assessment Start: 11/14/20 11:10 Freq: Status: Active Protocol: SUSAN Activity Type Activity Date Activity User E-Sign Co-Sign Detail Recorded Client Recorded Date Recorded By Document 11/14/20 11:10 [facility] [id number] 11/14/20 11:24 BM Document 11/28/20 11:05 RB [id number] 11/28/20 11:14 RB 11/14/20 11/28/20 11:10 11:05 - Today's Visit Information Type of service Follow-up Visit Follow-up Visit (Physician/VETERINARY PRACTICE MANAGER (Physician/VETERINARY PRACTICE MANAGER ) ) Arrival Mode Wheelchair Ambulatory Transfer Assistance None None Patient Identification Verified (Name & Yes Yes ) Patient Requires Transmission-Based No No Precautions Finger Stick Blood Sugar(mg/dl) (if 129 indicated): Blood Sugar Stated by Patient Height and Weight Body Mass Index (BMI) 43.2 43.2 BMI Classification Obese Obese Vital Signs Temperature (97.8 F-99.1 F) 98.3 F 97.4 F L Temperature Source Temporal Temporal Pulse Rate (60-100) 58 L 64 Pulse Location Monitor Monitor Respiratory Rate (12-18) 16 18 Respiratory rate source Observation Observation Oxygen Delivery Method Room Air Blood Pressure (90/60-120/80) 178/53 H 161/70 H Blood Pressure Mean (mm Hg) 94 100 Source Monitor Monitor Position Sitting Semi-Fowlers Blood Pressure Location Left Forearm Left Arm History Since Last Visit- (Skip if this is Patient's initial visit) Have you changed medications since your No No last visit? Any new allergies or adverse reactions No No Had a fall/change in ADL's that may No No increase risk of falls Signs or symptoms of abuse and/or No No neglect since last visit Have you been in the hospital since your No No last visit? Has dressing in place as prescribed Yes Yes Has compression in place as prescribed Yes Yes Has offloadiing in place as prescribed Yes No Experienced any changes in pain level or No No management Right Footwear Surgical Shoe with pressure relief insole Pain Scale: 0-10 Numeric Is Patient Pain Free? Yes Yes XIMENA - Nurse 1 - General Ulcer Measurement Start: 11/14/20 11:10 Freq: Status: Active Protocol: Activity Type Activity Date Activity User E-Sign Co-Sign Detail Recorded Client Recorded Date Recorded By Document 11/14/20 11:10 [facility] [id number] 11/14/20 11:24 [facility] Document 11/28/20 11:05 [id number] 11/28/20 11:14 RB 11/14/20 11/28/20 11:10 11:05 Wound Center Nurse 1 50-RIGHT POSTERIOR LEG -Combined with other wound No -Current Size (cm) - Length 0.1 -Current Size (cm) - Width 0.1 -Current Size (cm) - Depth 0.1 -Total Square Cm 0.01 -Tunneling No -Undermining/Tunneling No -Circular Undermining No -Exudate Amt Small -Exudate Type Serosanguineous -Wound Margin Flat & Intact -Granulation Amt Medium (34-66%) -Granulation Quality [place] -Slough/Fibrin Yes -Necrosis Amt Small (1-33%) -Necrotic Tissue Type Adherent Slough -Structure Exposed N/A -Texture (Susy-wound Skin Appearance) Assessed -Moisture (Susy-wound Skin Appearance) Assessed -Color (Susy-wound Skin Appearance) Assessed -Temperature (Susy-wound Skin No Abnormality Appearance) (Pt Warm) -Tenderness on Palpation (Susy-wound No Skin Appearance) -Ulcer Cleansing Wound Cleanser -Foul Odor after Cleansing No -Anesthetic Used 4% Lidocaine Solution #49 R Dorsal -Combined with other wound No -Current Size (cm) - Length 7 12 -Current Size (cm) - Width 10 7.5 -Current Size (cm) - Depth 0.1 0.2 -Total Square Cm 70 90.0 -Photo Taken No -Tunneling No No -Undermining/Tunneling No No -Circular Undermining No No -Exudate Amt Medium Large -Exudate Type Serosanguineous Serosanguineous -Wound Margin Distinct, Distinct, Outline Outline Attached Attached -Granulation Amt Medium (34-66%) Medium (34-66%) -Granulation Quality [place] -Slough/Fibrin Yes Yes -Necrosis Amt Small (1-33%) Medium (34-66%) -Necrotic Tissue Type Adherent Slough -Structure Exposed N/A N/A -Texture (Susy-wound Skin Appearance) Assessed,Callus Assessed -Moisture (Susy-wound Skin Appearance) Assessed Maceration -Color (Susy-wound Skin Appearance) Assessed Assessed -Temperature (Susy-wound Skin No Abnormality No Abnormality Appearance) (Pt Warm) (Pt Warm) -Tenderness on Palpation (Susy-wound No No Skin Appearance) -Ulcer Cleansing Wound Cleanser -Foul Odor after Cleansing No No -Anesthetic Used 4% Lidocaine 4% Lidocaine Solution Solution 46-right 2nd toe -Combined with other wound No No -Current Size (cm) - Length 3.5 3 -Current Size (cm) - Width 0.3 2.1 -Current Size (cm) - Depth 0.6 0.1 -Total Square Cm 1.05 6.3 -Tunneling No No -Undermining/Tunneling No No -Circular Undermining No No -Exudate Amt Medium Large -Exudate Type Serosanguineous Serosanguineous -Wound Margin Distinct, Distinct, Outline Outline Attached Attached -Granulation Amt Medium (34-66%) Large (67-100%) -Granulation Quality [place] -Slough/Fibrin Yes -Necrosis Amt Medium (34-66%) Small (1-33%) -Necrotic Tissue Type Adherent Slough Adherent Slough -Structure Exposed N/A N/A -Texture (Susy-wound Skin Appearance) Assessed,Callus Assessed -Moisture (Susy-wound Skin Appearance) Assessed Maceration -Color (Susy-wound Skin Appearance) Assessed Assessed -Temperature (Susy-wound Skin No Abnormality No Abnormality Appearance) (Pt Warm) (Pt Warm) -Tenderness on Palpation (Susy-wound No No Skin Appearance) -Ulcer Cleansing Wound Cleanser Wound Cleanser -Foul Odor after Cleansing No No -Anesthetic Used 4% Lidocaine 4% Lidocaine Solution Solution #35 L Stump -Combined with other wound No No -Current Size (cm) - Length 1.3 1.1 -Current Size (cm) - Width 2 2.4 -Current Size (cm) - Depth 0.4 0.3 -Total Square Cm 2.6 2.64 -Tunneling No No -Undermining/Tunneling No No -Circular Undermining No No -Exudate Amt Medium Large -Exudate Type Serosanguineous Serosanguineous -Wound Margin Distinct, Distinct, Outline Outline Attached Attached -Granulation Amt Medium (34-66%) Medium (34-66%) -Granulation Quality [place] -Slough/Fibrin Yes Yes -Necrosis Amt Small (1-33%) Small (1-33%) -Necrotic Tissue Type Adherent Slough Adherent Slough -Structure Exposed N/A N/A -Texture (Susy-wound Skin Appearance) Assessed Assessed -Moisture (Susy-wound Skin Appearance) Assessed,Dry/ Maceration Scaly -Color (Susy-wound Skin Appearance) Assessed Assessed -Temperature (Susy-wound Skin No Abnormality No Abnormality Appearance) (Pt Warm) (Pt Warm) -Tenderness on Palpation (Susy-wound No No Skin Appearance) -Ulcer Cleansing Wound Cleanser Wound Cleanser -Foul Odor after Cleansing No No -Anesthetic Used 4% Lidocaine 4% Lidocaine Solution Solution Lower Limb Edema Present Yes Yes Right Calf (cm) 51.4 42.2 Right Ankle (cm) 29.6 29 11/28/20 11:13 Wound Center by Karuna Charles states went to [facility] with complaints of magots in wound . Initialized on 11/28/20 11:13 - END OF NOTE WC - Nurse 2 - General Ulcer CM Notes Start: 11/14/20 11:10 Freq: Status: Active Protocol: Activity Type Activity Date Activity User E-Sign Co-Sign Detail Recorded Client Recorded Date Recorded By Document 11/14/20 11:42 JF [id number] 11/14/20 11:53 Document 11/28/20 11:29 [id number] 11/28/20 11:38 11/14/20 11/28/20 11:42 11:29 Wound Center Nurse 2 50-RIGHT POSTERIOR LEG -Time 11:51 11:30 -Correct Patient Yes Yes -Correct Side, Site, Position Yes Yes -Correct Procedure Yes Yes -Procedure Performed Yes Yes -Type of Procedure Debridement Debridement -Clinical Debridement Subcutaneous Subcutaneous -Tissue Removed Subcutaneous Subcutaneous -Post Debridement (cm) - Length 1 1.2 -Post Debridement (cm) - Width 1.5 0.4 -Post Debridement (cm) - Depth 0.1 0.1 -Total Square (Post) (cm) 1.5 0.48 -Area of Debridement (cm) - Length 1 1.2 -Area of Debridement (cm) - Width 1.5 0.4 -Total Square (Area) (cm) 1.5 0.48 -Tunneling No No -Undermining/Tunneling No No -Circular Undermining No No -Wound/Ulcer Outcome Not Healed Not Healed -Ulcer Cleansing Rinsed/ Rinsed/ Irrigated with Irrigated with Saline Saline -Foul Odor after Cleansing No No -Bioengineered Tissue No No -Bleeding Controlled with Pressure Pressure -Offloading No No -Treatment Response Procedure Procedure Tolerated Well Tolerated Well -Debridement - Subq, 1st 20sq cm No No #49 R Dorsal -Time 11:43 11:30 -Correct Patient Yes Yes -Correct Side, Site, Position Yes Yes -Correct Procedure Yes Yes -Procedure Performed Yes Yes -Type of Procedure Debridement Debridement -Clinical Debridement Subcutaneous Subcutaneous -Tissue Removed Subcutaneous Dermis -Post Debridement (cm) - Length 0.7 12 -Post Debridement (cm) - Width 1 7.6 -Post Debridement (cm) - Depth 0.1 0.2 -Total Square (Post) (cm) 0.7 91.2 -Area of Debridement (cm) - Length 0.7 12 -Area of Debridement (cm) - Width 1 7.6 -Total Square (Area) (cm) 0.7 91.2 -Tunneling No No -Undermining/Tunneling No No -Circular Undermining No No -Wound/Ulcer Outcome Not Healed Not Healed -Ulcer Cleansing Rinsed/ Rinsed/ Irrigated with Irrigated with Saline Saline -Foul Odor after Cleansing No No -Bioengineered Tissue No No -Bleeding Controlled with Pressure Pressure -Offloading Yes No -Type of Offloading Surgical Shoe -Treatment Response Procedure Procedure Tolerated Well Tolerated Well -Debridement - Subq, 1st 20sq cm Yes Yes -Debridement, SubQ, ea addt'l 20sq cm 4 or part thereof 46-right 2nd toe -Time 11:46 11:31 -Correct Patient Yes Yes -Correct Side, Site, Position Yes Yes -Correct Procedure Yes Yes -Procedure Performed Yes Yes -Type of Procedure Debridement Debridement -Clinical Debridement Subcutaneous Subcutaneous -Tissue Removed Subcutaneous Subcutaneous -Post Debridement (cm) - Length 3.5 3 -Post Debridement (cm) - Width 0.4 2.2 -Post Debridement (cm) - Depth 0.5 0.1 -Total Square (Post) (cm) 1.40 6.6 -Area of Debridement (cm) - Length 3.5 3 -Area of Debridement (cm) - Width 0.4 2.2 -Total Square (Area) (cm) 1.40 6.6 -Tunneling No No -Undermining/Tunneling No No -Circular Undermining No No -Wound/Ulcer Outcome Not Healed Not Healed -Ulcer Cleansing Rinsed/ Rinsed/ Irrigated with Irrigated with Saline Saline -Foul Odor after Cleansing No No -Bioengineered Tissue No No -Bleeding Controlled with Pressure Pressure -Offloading Yes Yes -Type of Offloading Surgical Shoe Surgical Shoe -Treatment Response Procedure Procedure Tolerated Well Tolerated Well -Debridement - Subq, 1st 20sq cm No No #35 L Stump -Time 11:47 11:31 -Correct Patient Yes Yes -Correct Side, Site, Position Yes Yes -Correct Procedure Yes Yes -Procedure Performed Yes Yes -Type of Procedure Debridement Debridement -Clinical Debridement Subcutaneous Subcutaneous -Tissue Removed Subcutaneous Subcutaneous -Post Debridement (cm) - Length 1.4 1.2 -Post Debridement (cm) - Width 2 2.4 -Post Debridement (cm) - Depth 0.4 0.3 -Total Square (Post) (cm) 2.8 2.88 -Area of Debridement (cm) - Length 1.4 1.2 -Area of Debridement (cm) - Width 2 2.4 -Total Square (Area) (cm) 2.8 2.88 -Tunneling No No -Undermining/Tunneling No No -Circular Undermining No No -Wound/Ulcer Outcome Not Healed Not Healed -Ulcer Cleansing Rinsed/ Rinsed/ Irrigated with Irrigated with Saline Saline -Foul Odor after Cleansing No No -Bioengineered Tissue No No -Bleeding Controlled with Pressure Pressure -Offloading No No -Treatment Response Procedure Procedure Tolerated Well Tolerated Well -Debridement - Subq, 1st 20sq cm No No Pain Scale: 0-10 Numeric Is Patient Pain Free? Yes - Nurse 3 - General Ulcer D/C NN Start: 11/14/20 11:10 Freq: Status: Active Protocol: Activity Type Activity Date Activity User E-Sign Co-Sign Detail Recorded Client Recorded Date Recorded By Document 11/14/20 11:58 [facility] [id number] 11/14/20 12:01 BM Document 11/28/20 11:42 DL [id number] 11/28/20 11:46 DL 11/14/20 11/28/20 11:58 11:42 Wound Care Nurse 3 50-RIGHT POSTERIOR LEG -Ulcer Cleansing Rinsed/ Wound Cleanser Irrigated with Saline -Foul Odor after Cleansing No No -Primary Dressing Applied NonAdherent NonAdherent Contact Layer Contact Layer -Other Dressing drsg per rb rn -Primary Dressing Covered/Secured with Dry Gauze & Dry Gauze & Roll Gauze, Roll Gauze, Secured with Secured with Tape Tape #49 R Dorsal -Ulcer Cleansing Rinsed/ Wound Cleanser Irrigated with Saline -Foul Odor after Cleansing No No -Primary Dressing Applied Aquacel Extra -Other Dressing dakins -Primary Dressing Covered/Secured with Dry Gauze & Dry Gauze & Roll Gauze, Roll Gauze, Secured with Secured with Tape Tape -Other Covering drsg per rb rn -Aquacel Extra 1 46-right 2nd toe -Ulcer Cleansing Rinsed/ Wound Cleanser Irrigated with Saline -Foul Odor after Cleansing No No -Primary Dressing Applied Aquacel Extra -Other Dressing drsg per rb rn dakins -Primary Dressing Covered/Secured with Dry Gauze & Dry Gauze & Roll Gauze, Roll Gauze, Secured with Secured with Tape Tape -Aquacel Extra 0 #35 L Stump -Ulcer Cleansing Rinsed/ Wound Cleanser Irrigated with Saline -Foul Odor after Cleansing No No -Primary Dressing Applied Aquacel Extra -Other Dressing dakins -Primary Dressing Covered/Secured with Dry Gauze & Dry Gauze & Roll Gauze, Roll Gauze, Secured with Secured with Tape Tape -Other Covering drsg per rb rn -Aquacel Extra 0 Right -Other circ aid Treatment Response Procedure Procedure Tolerated Well Tolerated Well Pain Scale: 0-10 Numeric Is Patient Pain Free? Yes Yes WC - Visit Discharge Discharge Condition Stable Stable Ambulatory Status Wheelchair Wheelchair Transportation [facility] Type Home Health Home Health Orders Sent Yes Assessment/Plan Assessment/Plan (1) Ulcer of left lower extremity with fat layer exposed: CODE(S): L97.922 - Non-pressure chronic ulcer of unspecified part of left lower leg with fat layer exposed (2) Ulcer of right foot with fat layer exposed: CODE(S): L97.512 - Non-pressure chronic ulcer of other part of right foot with fat layer exposed (3) Delayed wound healing: CODE(S): T14.8XXD - Other injury of unspecified body region, subsequent encounter (4) Type 2 diabetes mellitus with diabetic polyneuropathy: CODE(S): E11.42 - Type 2 diabetes mellitus with diabetic polyneuropathy (5) Localized edema: CODE(S): R60.0 - Localized edema (6) Ulcer of right lower extremity with fat layer exposed: CODE(S): L97.912 - Non-pressure chronic ulcer of unspecified part of right lower leg with fat layer exposed (7) Maceration of skin: CODE(S): L98.8 - Other specified disorders of the skin and subcutaneous tissue (8) Lymphedema: CODE(S): I89.0 - Lymphedema, not elsewhere classified (9) Infestation, maggots: CODE(S): B87.9 - Myiasis, unspecified PLAN: I reviewed and discussed his case. His ulcer were debrided as noted. He was reassured no local signs of infection are seen. To change dressing daily with Dakin wet-to-dry gauze next week. To wash the wo und with antibacterial soap and water. To avoid applying foam to the forefoot for this is contributing to maceration. His recent trip to the urgent center with is noted and I do not have access to the diagnostic data. However, he was advised he did not have any local or systemic signs of illness today and I do not recommend antibiotics. He was also reassured there are are no additional maggots identified today. To continue with right lower extremity surgical shoe. Extra-depth diabetic shoes will be considered after his maceration, ulcer healed, and edema are controlled. To continue with automated wheelchair. To continue to optimize healing with improved glycemic index, continued weight reduction, and well-balanced [employer] nutrients. To continue with edema management including his compression wraps and also lymphedema pumps. It is noted he has not been able to elevate as much this past week and has increased edema. Additional Mateus wrap was applied prior to Tubigrip application splint to help reduce stump edema. To reduce salt in diet; this was discussed. He has resumed Lasix and was advised to continue his advised by his primary care physician. [place] wrap was ordered for the right lower extremity. Leg circumference and leg length measurements were obtained today. This is medically necessary to prevent recurrence of leg ulcers and also to help heal his current limb ulcers. To continue with showering routine. To resume applying Lac-Hydrin lotion. He completed course of advanced wound healing product application, epi fix. He would like to try another home health agency that is able to come out on a routine basis and provide appropriate wound care products. He gave us the contact information and we will send the referral. He was advised to return to clinic next week or call sooner if he has any worsening status. Note: Degreed speech recognition curriculum advisory teacher software was used to create portions of this document. Sound-alike and misspelled words, as well as other curriculum advisory teacher errors may be contained in the documentation. 20 minutes was spent on this encounter. This included face to face and non face to face care including preparing for the visit, reviewing the history, performing the exam, counseling and providing education to the patient, family, or caregiver, ordering medications/test/ procedures if indicated as documented, communicating with other healthcare providers, documenting information in the medical record, interpreting / sharing this information when indicated as documented, and care coordination.
[2020-12-05 11:23] VITALS: BP 150/60; PULSE 56; RESP 18; TEMP 36.3; BMI 43.2
[2020-12-05 14:55] LABS: M R Staph aureus DNA By PCR Negative (Negative); Probe Check PASS; Specimen Processing Control PASS; Staph aureus DNA By PCR NEGATIVE (Negative)
--- NOTE | 2020-12-05 20:13 | PCM.WC.PN ---
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 He also has multiple right foot ulcers and a left leg ulcer, and has been performing dressing changes as advised. He denies fever, chill, nausea, vomiting, redness, or odor. He denies odor. Increasing green drainage he reports his leg is only being washed with saline and no longer antibacterial soap which he is concerned about. He also reports Aquacel foam has been applied which I retain moisture. He had maggot infestation this past week and went to the urgent center in [place] associated with [facility]. The maggots were removed with peroxide. I have not asked us to review his medical records from [facility] emergency room. He relates he did not have labs, cultures, or any blood work or x-rays obtained. He denies new maggot infestation this past week. Progress of Wound: Improving right foot Healed right leg ulcer Stable left leg ulcer Stable right second toe ulcer Objective Data Objective Data Vital Signs: Vital Signs Temp Pulse Resp BP 97.3 F L 56 L 18 150/60 H 12/05/20 11:23 12/05/20 11:23 12/05/20 11:23 12/05/20 11:23 Oxygen Delivery Method Room Air Body Mass Index (BMI) 43.2 Lab / Micro Data Labs: Laboratory Results - last 24 hr 12/05/20 : S.aureus Protein A PCR NEGATIVE, MRSA (PCR) Negative Physical Exam Extremity Extremity Narrative: No calf tenderness Diminished pulses Muscle wasting noted Left below-knee amputation and right hallux amputation Compartments remain soft to palpate bilateral lower extremities Skin Skin Narrative: no purulence, no streaking, no odor, no infection. Full epithelialization /subhemorrhagic tissue to dorsal right foot and fully healed right leg ulcer. remaining granaular wound to medial right second toe. green drainage on dressing. once removed, no odor or local infection to either lower limb. no bogginess or fluctuance noted. Left leg stump site ulcer has granular and fibrous base also; unchanged. The adjacent skin is hairless and atrophic. Neuro Neuro Narrative: lack of normal epicritic sensation via light touch is consistent with neuropathy status Debridement Note Debridement Note Wound debrided: Right medial forefoot, left leg Wound Grade/Stage: 1 Type of Debridement: Excisional debridement Anesthesia Used: 4% Lidocaine Solution Depth: in the subcutaneous layer Percentage of wound debrided: 100 Instrument Used: #15 blade Tissue Removed: fibrous, devitalized subcutaneous, biofilm, slough Severity: Fat Layer Exposed Amount of bleeding with debridement: Mild Bleeding Controlled with: Pressure Patient tolerated procedure: Patient tolerated procedure well Post-Debridement Measurements and Additional Note: Post-Debridement Measurements/Treatment - Nurse 1 - General Ulcer Assessment Start: 11/14/20 11:10 Freq: Status: Active Protocol: SUSAN Activity Type Activity Date Activity User E-Sign Co-Sign Detail Recorded Client Recorded Date Recorded By Document 11/14/20 11:10 BM [id number] 11/14/20 11:24 BM Document 11/28/20 11:05 RB [id number] 11/28/20 11:14 RB Document 12/05/20 11:23 RB [id number] 12/05/20 11:39 RB 11/14/20 11/28/20 12/05/20 11:10 11:05 11:23 - Today's Visit Information Type of service Follow-up Visit Follow-up Visit Follow-up Visit (Physician/LUNCHROOM OPERATOR (Physician/LUNCHROOM OPERATOR (Physician/LUNCHROOM OPERATOR ) ) ) Arrival Mode Wheelchair Ambulatory Wheelchair Transfer Assistance None None None Patient Identification Verified (Name & Yes Yes Yes ) Patient Requires Transmission-Based No No No Precautions Finger Stick Blood Sugar(mg/dl) (if 129 84 indicated): Blood Sugar Stated by Stated by Patient Patient Height and Weight Body Mass Index (BMI) 43.2 43.2 43.2 BMI Classification Obese Obese Obese Vital Signs Temperature (97.8 F-99.1 F) 98.3 F 97.4 F L 97.3 F L Temperature Source Temporal Temporal Temporal Pulse Rate (60-100) 58 L 64 56 L Pulse Location Monitor Monitor Monitor Respiratory Rate (12-18) 16 18 18 Respiratory rate source Observation Observation Observation Oxygen Delivery Method Room Air Blood Pressure (90/60-120/80) 178/53 H 161/70 H 150/60 H Blood Pressure Mean (mm Hg) 94 100 90 Source Monitor Monitor Monitor Position Sitting Semi-Fowlers Semi-Fowlers Blood Pressure Location Left Forearm Left Arm Left Arm History Since Last Visit- (Skip if this is Patient's initial visit) Have you changed medications since your No No No last visit? Any new allergies or adverse reactions No No No Had a fall/change in ADL's that may No No No increase risk of falls Signs or symptoms of abuse and/or No No No neglect since last visit Have you been in the hospital since your No No No last visit? Has dressing in place as prescribed Yes Yes Yes Has compression in place as prescribed Yes Yes Yes Has offloadiing in place as prescribed Yes No No Experienced any changes in pain level or No No No management Right Footwear Surgical Shoe with pressure relief insole Pain Scale: 0-10 Numeric Is Patient Pain Free? Yes Yes Yes WC - Nurse 1 - General Ulcer Measurement Start: 11/14/20 11:10 Freq: Status: Active Protocol: Activity Type Activity Date Activity User E-Sign Co-Sign Detail Recorded Client Recorded Date Recorded By Document 11/14/20 11:10 [facility] [id number] 11/14/20 11:24 [facility] Document 11/28/20 11:05 RB [id number] 11/28/20 11:14 RB Document 12/05/20 11:23 RB [id number] 12/05/20 11:39 RB 11/14/20 11/28/20 12/05/20 11:10 11:05 11:23 Wound Center Nurse 1 50-RIGHT POSTERIOR LEG -Combined with other wound No No -Current Size (cm) - Length 0.1 0 -Current Size (cm) - Width 0.1 0 -Current Size (cm) - Depth 0.1 0 -Total Square Cm 0.01 0 -Photo Taken Yes -Epithelialization Large 67-100% -Tunneling No -Undermining/Tunneling No -Circular Undermining No -Exudate Amt Small -Exudate Type Serosanguineous -Wound Margin Flat & Intact -Granulation Amt Medium (34-66%) -Granulation Quality [place] -Slough/Fibrin Yes -Necrosis Amt Small (1-33%) -Necrotic Tissue Type Adherent Slough -Structure Exposed N/A -Texture (Susy-wound Skin Appearance) Assessed -Moisture (Susy-wound Skin Appearance) Assessed -Color (Susy-wound Skin Appearance) Assessed -Temperature (Susy-wound Skin No Abnormality Appearance) (Pt Warm) -Tenderness on Palpation (Susy-wound No Skin Appearance) -Ulcer Cleansing Wound Cleanser -Foul Odor after Cleansing No -Anesthetic Used 4% Lidocaine Solution #49 R Dorsal foot -Combined with other wound No No -Current Size (cm) - Length 7 12 9 -Current Size (cm) - Width 10 7.5 9.5 -Current Size (cm) - Depth 0.1 0.2 0.1 -Total Square Cm 70 90.0 85.5 -Photo Taken No -Tunneling No No No -Undermining/Tunneling No No No -Circular Undermining No No -Exudate Amt Medium Large Medium -Exudate Type Serosanguineous Serosanguineous Serosanguineous -Wound Margin Distinct, Distinct, Distinct, Outline Outline Outline Attached Attached Attached -Granulation Amt Medium (34-66%) Medium (34-66%) Medium (34-66%) -Granulation Quality [place] -Slough/Fibrin Yes Yes Yes -Necrosis Amt Small (1-33%) Medium (34-66%) Small (1-33%) -Necrotic Tissue Type Adherent Slough Adherent Slough -Structure Exposed N/A N/A N/A -Texture (Susy-wound Skin Appearance) Assessed,Callus Assessed Assessed -Moisture (Susy-wound Skin Appearance) Assessed Maceration Maceration -Color (Susy-wound Skin Appearance) Assessed Assessed Assessed -Temperature (Susy-wound Skin No Abnormality No Abnormality No Abnormality Appearance) (Pt Warm) (Pt Warm) (Pt Warm) -Tenderness on Palpation (Susy-wound No No No Skin Appearance) -Ulcer Cleansing Wound Cleanser Wound Cleanser -Foul Odor after Cleansing No No No -Anesthetic Used 4% Lidocaine 4% Lidocaine 4% Lidocaine Solution Solution Solution 46-right 2nd toe -Combined with other wound No No No -Current Size (cm) - Length 3.5 3 2.2 -Current Size (cm) - Width 0.3 2.1 2.2 -Current Size (cm) - Depth 0.6 0.1 0.2 -Total Square Cm 1.05 6.3 4.84 -Tunneling No No No -Undermining/Tunneling No No No -Circular Undermining No No No -Exudate Amt Medium Large Medium -Exudate Type Serosanguineous Serosanguineous Serosanguineous -Wound Margin Distinct, Distinct, Distinct, Outline Outline Outline Attached Attached Attached -Granulation Amt Medium (34-66%) Large (67-100%) Medium (34-66%) -Granulation Quality [place] -Slough/Fibrin Yes Yes -Necrosis Amt Medium (34-66%) Small (1-33%) Medium (34-66%) -Necrotic Tissue Type Adherent Slough Adherent Slough Eschar -Structure Exposed N/A N/A N/A -Texture (Susy-wound Skin Appearance) Assessed,Callus Assessed Assessed -Moisture (Susy-wound Skin Appearance) Assessed Maceration Maceration -Color (Susy-wound Skin Appearance) Assessed Assessed Assessed -Temperature (Susy-wound Skin No Abnormality No Abnormality No Abnormality Appearance) (Pt Warm) (Pt Warm) (Pt Warm) -Tenderness on Palpation (Susy-wound No No No Skin Appearance) -Ulcer Cleansing Wound Cleanser Wound Cleanser Wound Cleanser -Foul Odor after Cleansing No No No -Anesthetic Used 4% Lidocaine 4% Lidocaine 4% Lidocaine Solution Solution Solution #35 L Stump -Combined with other wound No No No -Current Size (cm) - Length 1.3 1.1 1.4 -Current Size (cm) - Width 2 2.4 2.4 -Current Size (cm) - Depth 0.4 0.3 0.5 -Total Square Cm 2.6 2.64 3.36 -Tunneling No No No -Undermining/Tunneling No No No -Circular Undermining No No -Exudate Amt Medium Large Medium -Exudate Type Serosanguineous Serosanguineous Serosanguineous -Wound Margin Distinct, Distinct, Distinct, Outline Outline Outline Attached Attached Attached -Granulation Amt Medium (34-66%) Medium (34-66%) Medium (34-66%) -Granulation Quality [place] -Slough/Fibrin Yes Yes Yes -Necrosis Amt Small (1-33%) Small (1-33%) Small (1-33%) -Necrotic Tissue Type Adherent Slough Adherent Slough Adherent Slough -Structure Exposed N/A N/A N/A -Texture (Susy-wound Skin Appearance) Assessed Assessed Assessed,Callus -Moisture (Susy-wound Skin Appearance) Assessed,Dry/ Maceration Assessed Scaly -Color (Susy-wound Skin Appearance) Assessed Assessed Assessed -Temperature (Susy-wound Skin No Abnormality No Abnormality No Abnormality Appearance) (Pt Warm) (Pt Warm) (Pt Warm) -Tenderness on Palpation (Susy-wound No No No Skin Appearance) -Ulcer Cleansing Wound Cleanser Wound Cleanser Wound Cleanser -Foul Odor after Cleansing No No -Anesthetic Used 4% Lidocaine 4% Lidocaine 4% Lidocaine Solution Solution Solution, Cetacaine Lower Limb Edema Present Yes Yes Yes Right Calf (cm) 51.4 42.2 40.1 Right Ankle (cm) 29.6 29 28.6 11/28/20 11:13 Wound Center by Karuna Charles pt states went to [facility] with complaints of magots in wound . Initialized on 11/28/20 11:13 - END OF NOTE WC - Nurse 2 - General Ulcer CM Notes Start: 11/14/20 11:10 Freq: Status: Active Protocol: Activity Type Activity Date Activity User E-Sign Co-Sign Detail Recorded Client Recorded Date Recorded By Document 11/14/20 11:42 [id number] 11/14/20 11:53 Document 11/28/20 11:29 [id number] 11/28/20 11:38 Document 12/05/20 11:52 [id number] 12/05/20 11:59 11/14/20 11/28/20 12/05/20 11:42 11:29 11:52 Wound Center Nurse 2 50-RIGHT POSTERIOR LEG -Time 11:51 11:30 -Correct Patient Yes Yes No -Correct Side, Site, Position Yes Yes No -Correct Procedure Yes Yes No -Procedure Performed Yes Yes No -Type of Procedure Debridement Debridement -Clinical Debridement Subcutaneous Subcutaneous -Tissue Removed Subcutaneous Subcutaneous -Post Debridement (cm) - Length 1 1.2 0 -Post Debridement (cm) - Width 1.5 0.4 0 -Post Debridement (cm) - Depth 0.1 0.1 0 -Total Square (Post) (cm) 1.5 0.48 0 -Area of Debridement (cm) - Length 1 1.2 0 -Area of Debridement (cm) - Width 1.5 0.4 0 -Total Square (Area) (cm) 1.5 0.48 0 -Tunneling No No -Undermining/Tunneling No No -Circular Undermining No No -Wound/Ulcer Outcome Not Healed Not Healed Failed Graft -Ulcer Cleansing Rinsed/ Rinsed/ Irrigated with Irrigated with Saline Saline -Foul Odor after Cleansing No No -Bioengineered Tissue No No -Bleeding Controlled with Pressure Pressure -Offloading No No -Treatment Response Procedure Procedure Tolerated Well Tolerated Well -Debridement - Subq, 1st 20sq cm No No #49 R Dorsal foot -Time 11:43 11:30 11:53 -Correct Patient Yes Yes No -Correct Side, Site, Position Yes Yes No -Correct Procedure Yes Yes No -Procedure Performed Yes Yes No -Type of Procedure Debridement Debridement -Clinical Debridement Subcutaneous Subcutaneous -Tissue Removed Subcutaneous Dermis -Post Debridement (cm) - Length 0.7 12 -Post Debridement (cm) - Width 1 7.6 -Post Debridement (cm) - Depth 0.1 0.2 -Total Square (Post) (cm) 0.7 91.2 -Area of Debridement (cm) - Length 0.7 12 -Area of Debridement (cm) - Width 1 7.6 -Total Square (Area) (cm) 0.7 91.2 -Tunneling No No -Undermining/Tunneling No No -Circular Undermining No No No -Wound/Ulcer Outcome Not Healed Not Healed Not Healed -Ulcer Cleansing Rinsed/ Rinsed/ Rinsed/ Irrigated with Irrigated with Irrigated with Saline Saline Saline -Foul Odor after Cleansing No No No -Bioengineered Tissue No No No -Bleeding Controlled with Pressure Pressure Pressure -Offloading Yes No Yes -Type of Offloading Surgical Shoe Surgical Shoe -Treatment Response Procedure Procedure Procedure Tolerated Well Tolerated Well Tolerated Well -Debridement - Subq, 1st 20sq cm Yes Yes No -Debridement, SubQ, ea addt'l 20sq cm 4 or part thereof 46-right 2nd toe -Time 11:46 11:31 11:53 -Correct Patient Yes Yes Yes -Correct Side, Site, Position Yes Yes Yes -Correct Procedure Yes Yes Yes -Procedure Performed Yes Yes Yes -Type of Procedure Debridement Debridement Debridement -Clinical Debridement Subcutaneous Subcutaneous Subcutaneous -Tissue Removed Subcutaneous Subcutaneous Subcutaneous -Post Debridement (cm) - Length 3.5 3 2.3 -Post Debridement (cm) - Width 0.4 2.2 2.3 -Post Debridement (cm) - Depth 0.5 0.1 0.2 -Total Square (Post) (cm) 1.40 6.6 5.29 -Area of Debridement (cm) - Length 3.5 3 2.3 -Area of Debridement (cm) - Width 0.4 2.2 2.3 -Total Square (Area) (cm) 1.40 6.6 5.29 -Tunneling No No No -Undermining/Tunneling No No No -Circular Undermining No No No -Wound/Ulcer Outcome Not Healed Not Healed Not Healed -Ulcer Cleansing Rinsed/ Rinsed/ Rinsed/ Irrigated with Irrigated with Irrigated with Saline Saline Saline -Foul Odor after Cleansing No No No -Bioengineered Tissue No No No -Bleeding Controlled with Pressure Pressure Pressure -Offloading Yes Yes Yes -Type of Offloading Surgical Shoe Surgical Shoe Surgical Shoe -Treatment Response Procedure Procedure Procedure Tolerated Well Tolerated Well Tolerated Well -Debridement - Subq, 1st 20sq cm No No Yes #35 L Stump -Time 11:47 11:31 11:54 -Correct Patient Yes Yes Yes -Correct Side, Site, Position Yes Yes Yes -Correct Procedure Yes Yes Yes -Procedure Performed Yes Yes Yes -Type of Procedure Debridement Debridement Debridement -Clinical Debridement Subcutaneous Subcutaneous Subcutaneous -Tissue Removed Subcutaneous Subcutaneous Subcutaneous -Post Debridement (cm) - Length 1.4 1.2 1.5 -Post Debridement (cm) - Width 2 2.4 2.5 -Post Debridement (cm) - Depth 0.4 0.3 0.4 -Total Square (Post) (cm) 2.8 2.88 3.75 -Area of Debridement (cm) - Length 1.4 1.2 1.5 -Area of Debridement (cm) - Width 2 2.4 2.5 -Total Square (Area) (cm) 2.8 2.88 3.75 -Tunneling No No No -Undermining/Tunneling No No No -Circular Undermining No No No -Wound/Ulcer Outcome Not Healed Not Healed Not Healed -Ulcer Cleansing Rinsed/ Rinsed/ Rinsed/ Irrigated with Irrigated with Irrigated with Saline Saline Saline -Foul Odor after Cleansing No No No -Bioengineered Tissue No No No -Bleeding Controlled with Pressure Pressure Pressure -Offloading No No No -Treatment Response Procedure Procedure Procedure Tolerated Well Tolerated Well Tolerated Well -Debridement - Subq, 1st 20sq cm No No No Pain Scale: 0-10 Numeric Is Patient Pain Free? Yes Yes - Nurse 3 - General Ulcer D/C NN Start: 11/14/20 11:10 Freq: Status: Active Protocol: Activity Type Activity Date Activity User E-Sign Co-Sign Detail Recorded Client Recorded Date Recorded By Document 11/14/20 11:58 [facility] [id number] 11/14/20 12:01 [facility] Document 11/28/20 11:42 DL [id number] 11/28/20 11:46 DL Document 12/05/20 11:59 [facility] [id number] 12/05/20 12:02 [facility] 11/14/20 11/28/20 12/05/20 11:58 11:42 11:59 Wound Care Nurse 3 50-RIGHT POSTERIOR LEG -Ulcer Cleansing Rinsed/ Wound Cleanser Irrigated with Saline -Foul Odor after Cleansing No No -Primary Dressing Applied NonAdherent NonAdherent Contact Layer Contact Layer -Other Dressing drsg per rb rn -Primary Dressing Covered/Secured with Dry Gauze & Dry Gauze & Roll Gauze, Roll Gauze, Secured with Secured with Tape Tape #49 R Dorsal foot -Ulcer Cleansing Rinsed/ Wound Cleanser Rinsed/ Irrigated with Irrigated with Saline Saline -Foul Odor after Cleansing No No No -Primary Dressing Applied Aquacel Extra Other -Other Dressing [facility] -Primary Dressing Covered/Secured with Dry Gauze & Dry Gauze & Dry Gauze & Roll Gauze, Roll Gauze, Roll Gauze, Secured with Secured with Secured with Tape Tape Tape,Other -Other Covering drsg per rb rn abd, drsg per pa rn -Aquacel Extra 1 46-right 2nd toe -Ulcer Cleansing Rinsed/ Wound Cleanser Rinsed/ Irrigated with Irrigated with Saline Saline -Foul Odor after Cleansing No No No -Primary Dressing Applied Aquacel Extra Other -Other Dressing drsg per rb rn daksouleymane dakins -Primary Dressing Covered/Secured with Dry Gauze & Dry Gauze & Dry Gauze & Roll Gauze, Roll Gauze, Roll Gauze, Secured with Secured with Secured with Tape Tape Tape -Other Covering drsg per mt rn -Aquacel Extra 0 #35 L Stump -Ulcer Cleansing Rinsed/ Wound Cleanser Rinsed/ Irrigated with Irrigated with Saline Saline -Foul Odor after Cleansing No No No -Primary Dressing Applied Aquacel Extra Other -Other Dressing [facility] -Primary Dressing Covered/Secured with Dry Gauze & Dry Gauze & Dry Gauze & Roll Gauze, Roll Gauze, Roll Gauze, Secured with Secured with Secured with Tape Tape Tape,Other -Other Covering drsg per rb rn drsg per mt rn -Aquacel Extra 0 Left -Other pts own tubi applied Right -Other circ aid farrow wrap Treatment Response Procedure Procedure Procedure Tolerated Well Tolerated Well Tolerated Well Pain Scale: 0-10 Numeric Is Patient Pain Free? Yes Yes Yes WC - Visit Discharge Discharge Condition Stable Stable Stable Ambulatory Status Wheelchair Wheelchair Wheelchair Transportation [facility] Home Health Home Health Home Health Orders Sent Yes Assessment/Plan Assessment/Plan (1) Ulcer of left lower extremity with fat layer exposed: CODE(S): L97.922 - Non-pressure chronic ulcer of unspecified part of left lower leg with fat layer exposed (2) Ulcer of right foot with fat layer exposed: CODE(S): L97.512 - Non-pressure chronic ulcer of other part of right foot with fat layer exposed (3) Delayed wound healing: CODE(S): T14.8XXD - Other injury of unspecified body region, subsequent encounter (4) Type 2 diabetes mellitus with diabetic polyneuropathy: CODE(S): E11.42 - Type 2 diabetes mellitus with diabetic polyneuropathy (5) Localized edema: CODE(S): R60.0 - Localized edema (6) Ulcer of right lower extremity with fat layer exposed: CODE(S): L97.912 - Non-pressure chronic ulcer of unspecified part of right lower leg with fat layer exposed (7) Maceration of skin: CODE(S): L98.8 - Other specified disorders of the skin and subcutaneous tissue (8) Lymphedema: CODE(S): I89.0 - Lymphedema, not elsewhere classified (9) Infestation, maggots: CODE(S): B87.9 - Myiasis, unspecified (10) Cellulitis of right lower limb: CODE(S): L03.115 - Cellulitis of right lower limb PLAN: I reviewed and discussed his case. His ulcer were debrided as noted. He was reassured no local signs of infection are seen. To change dressing daily with Dakin wet-to-dry gauze next week. To wash the wound with antibacterial soap and water. To avoid applying foam to the forefoot for this is contributing to maceration. His recent trip to the urgent center with is noted and I do not have access to the diagnostic data. However, he was advised he did not have any local or systemic signs of illness today and I do not recommend antibiotics. He was also reassured there are are no additional maggots identified today. Due to his current continued discolored drainage I recommended obtaining a culture (aerobic, anaerobic, and MRSA PCR: Determine if bacterial colonization is present in which antibiotic may be considered if there is a pathological bacteria identified or if there is a pathological amount. To continue with right lower extremity surgical shoe. Extra-depth diabetic shoes will be considered after his maceration, ulcer healed, and edema are controlled. To continue with automated wheelchair. To continue to optimize healing with improved glycemic index, continued weight reduction, and well-balanced [employer] nutrients. To continue with edema management including his compression wraps and also lymphedema pumps. It is noted he has not been able to elevate as much this past week and has increased edema. Additional Mateus wrap was applied prior to Tubigrip application splint to help reduce stump edema. To reduce salt in diet; this was discussed. He has resumed Lasix and was advised to continue his advised by his primary care physician. Farrow wrap was ordered for the right lower extremity. Leg circumference and leg length measurements were obtained today. This is medically necessary to prevent recurrence of leg ulcers and also to help heal his current limb ulcers. To continue with showering routine. To resume applying Lac-Hydrin lotion. Refill prescription was electronically sent to his pharmacy of choice. He completed course of advanced wound healing product application, epi fix. He was advised to return to clinic next week or call sooner if he has any worsening status. Note: Open[employer] speech recognition machine baster software was used to create portions of this document. Sound-alike and misspelled words, as well as other machine baster errors may be contained in the documentation. 20 minutes was spent on this encounter. This included face to face and non face to face care including preparing for the visit, reviewing the history, performing the exam, counseling and providing education to the patient, family, or caregiver, ordering medications/test/ procedures if indicated as documented, communicating with other healthcare providers, documenting information in the medical record, interpreting / sharing this information when indicated as documented, and care coordination. The medical decision making level is limited based on data including the review of prior external notes, review of a prior test, or ordering a test.
== END 2020-12-13 23:59 ==
LOC: WC 11:15
PROVIDERS: PCP Family Medicine; Visit Provider Podiatrist
DX: E11.622 Type 2 diabetes mellitus with other skin ulcer (principal); L97.512 Non-pressure chronic ulcer of other part of right foot with fat layer exposed; T14.8XXD Other injury of unspecified body region, subsequent encounter; R60.0 Localized edema; I89.0 Lymphedema, not elsewhere classified; M79.89 Other specified soft tissue disorders; T87.89 Other complications of amputation stump; Y83.9 Surgical procedure, unspecified as the cause of abnormal reaction of the patient, or of later complication, without mention of misadventure at the time of the procedure; L97.822 Non-pressure chronic ulcer of other part of left lower leg with fat layer exposed; E11.42 Type 2 diabetes mellitus with diabetic polyneuropathy; B87.9 Myiasis, unspecified; L03.115 Cellulitis of right lower limb
CPT/HCPCS: 11042; 11045; 87070; 87075; 87077; 87186; 87205; 87640

== ENCOUNTER 2021-01-02 11:15 | Outpatient (RCR) | payer MEDICARE, MEDICAID, SELFPAY ==
[2020-12-19 11:07] VITALS: BP 173/57; PULSE 69; RESP 22; TEMP 36.4
--- NOTE | 2020-12-19 11:37 | PCM.WC.PN ---
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 He also has multiple right foot ulcers and a left leg ulcer, and has been performing dressing changes as advised. He denies fever, chill, nausea, vomiting, redness, or odor. He denies odor or redness. He has discolored drainage has resolved with oral antibiotic use. He has not been able to take a shower this past week due to fatigue and weakness. He has bronchitis and has been on antibiotics for that also for 3 weeks. He was also placed on prednisone and relates his sugars went up to over 800 milligrams per deciliter. He relates he did not call his primary medical provider and is treated it at home with insulin. He will follow-up with his primary care physician tomorrow. He also relates he scraped the back of his right leg on his wheelchair and has a new wound. He thinks this is superficial and he has been covering it with a dressing. Progress of Wound: Improving right foot and stable left leg New right leg Objective Data Objective Data Vital Signs: Vital Signs Temp Pulse Resp BP 97.6 F L 69 22 H 173/57 H 12/19/20 11:07 12/19/20 11:07 12/19/20 11:07 12/19/20 11:07 Physical Exam Extremity Extremity Narrative: No calf tenderness Diminished pulses Muscle wasting noted Left below-knee amputation and right hallux amputation Compartments remain soft to palpate bilateral lower extremities Skin Skin Narrative: no purulence, no streaking, no odor, no infection. Full epithelialization /subhemorrhagic tissue to dorsal right foot and fully healed right leg ulcer. remaining granular wound to medial right second toe decreased. no green drainage on dressing. once removed, no odor or local infection to either lower limb. no bogginess or fluctuance noted. Left leg stump site ulcer has granular and fibrous base also; unchanged. The adjacent skin is hairless and atrophic. Posterior right leg has some hemorrhagic tissue exposed from his reported wheelchair injury. There is no deep tissue exposure or infection or even granulation tissue seen. Neuro Neuro Narrative: lack of normal epicritic sensation via light touch is consistent with neuropathy status Debridement Note Debridement Note Wound debrided: Left leg, medial right second toe Wound Grade/Stage: 1 Type of Debridement: Excisional debridement Anesthesia Used: 4% Lidocaine Solution Depth: in the subcutaneous layer Percentage of wound debrided: 100 Instrument Used: #15 blade Tissue Removed: fibrous, devitalized subcutaneous, biofilm, slough Severity: Fat Layer Exposed Amount of bleeding with debridement: Mild Bleeding Controlled with: Pressure Patient tolerated procedure: Patient tolerated procedure well Post-Debridement Measurements and Additional Note: Post-Debridement Measurements/Treatment XIMENA - Nurse 1 - General Ulcer Assessment Start: 12/19/20 11:07 Freq: Status: Active Protocol: SUSAN Activity Type Activity Date Activity User E-Sign Co-Sign Detail Recorded Client Recorded Date Recorded By Document 12/19/20 11:07 ML [id number] 12/19/20 11:20 ML 12/19/20 11:07 WC - Today's Visit Information Type of service Follow-up Visit (Physician/BUSINESS OPERATIONS COORDINATOR ) Arrival Mode Wheelchair Transfer Assistance None Patient Identification Verified (Name & Yes ) Patient Requires Transmission-Based No Precautions Finger Stick Blood Sugar(mg/dl) (if 191 indicated): Blood Sugar Stated by Patient Vital Signs Temperature (97.8 F-99.1 F) 97.6 F L Temperature Source Temporal Pulse Rate (60-100) 69 Pulse Location Monitor Respiratory Rate (12-18) 22 H Respiratory rate source Observation Blood Pressure (90/60-120/80) 173/57 H Blood Pressure Mean (mm Hg) 95 Source Monitor History Since Last Visit- (Skip if this is Patient's initial visit) Have you changed medications since your No last visit? Any new allergies or adverse reactions No Had a fall/change in ADL's that may No increase risk of falls Signs or symptoms of abuse and/or No neglect since last visit Have you been in the hospital since your No last visit? Has dressing in place as prescribed Yes Has compression in place as prescribed Yes Has offloadiing in place as prescribed Yes Experienced any changes in pain level or No management Left Footwear No Footwear Right Footwear Surgical Shoe with pressure relief insole Pain Scale: 0-10 Numeric Is Patient Pain Free? Yes XIMENA [place] Nurse 1 - General Ulcer Measurement Start: 12/19/20 11:07 Freq: Status: Active Protocol: Activity Type Activity Date Activity User E-Sign Co-Sign Detail Recorded Client Recorded Date Recorded By Document 12/19/20 11:07 ML [id number] 12/19/20 11:20 ML 12/19/20 11:07 Wound Center Nurse 1 #49 R Dorsal foot -Current Size (cm) - Length 4 -Current Size (cm) - Width 9 -Current Size (cm) - Depth 0.1 -Total Square Cm 36 -Exudate Amt Large -Exudate Type Yellow/Green -Wound Margin Distinct, Outline Attached -Granulation Amt Large (67-100%) -Slough/Fibrin Yes -Necrosis Amt Large (67-100%) -Necrotic Tissue Type Adherent Slough -Texture (Susy-wound Skin Appearance) Excoriation -Moisture (Susy-wound Skin Appearance) Maceration -Color (Susy-wound Skin Appearance) Hemosiderin Staining -Temperature (Susy-wound Skin No Abnormality Appearance) (Pt Warm) -Ulcer Cleansing Soap and Water -Foul Odor after Cleansing Yes 46-right 2nd toe -Current Size (cm) - Length 2.6 -Current Size (cm) - Width 2.4 -Current Size (cm) - Depth 0.1 -Total Square Cm 6.24 -Exudate Amt Large -Exudate Type Yellow/Green -Wound Margin Distinct, Outline Attached -Granulation Amt Large (67-100%) -Necrosis Amt Large (67-100%) -Necrotic Tissue Type Adherent Slough -Texture (Susy-wound Skin Appearance) Excoriation -Moisture (Susy-wound Skin Appearance) Maceration -Color (Susy-wound Skin Appearance) Hemosiderin Staining -Temperature (Susy-wound Skin No Abnormality Appearance) (Pt Warm) -Ulcer Cleansing Soap and Water -Foul Odor after Cleansing No -Anesthetic Used 4% Lidocaine Solution #35 L Stump -Current Size (cm) - Length 1.4 -Current Size (cm) - Width 2.2 -Current Size (cm) - Depth 0.6 -Total Square Cm 3.08 -Exudate Amt Large -Exudate Type Yellow/Green -Wound Margin Distinct, Outline Attached -Granulation Amt Large (67-100%) -Necrosis Amt Large (67-100%) -Necrotic Tissue Type Adherent Slough -Texture (Susy-wound Skin Appearance) Excoriation -Moisture (Susy-wound Skin Appearance) Maceration -Color (Susy-wound Skin Appearance) Hemosiderin Staining -Temperature (Susy-wound Skin No Abnormality Appearance) (Pt Warm) -Tenderness on Palpation (Susy-wound No Skin Appearance) -Ulcer Cleansing Soap and Water -Foul Odor after Cleansing No -Anesthetic Used 4% Lidocaine Solution WC - Nurse 2 - General Ulcer CM Notes Start: 12/19/20 11:07 Freq: Status: Active Protocol: Activity Type Activity Date Activity User E-Sign Co-Sign Detail Recorded Client Recorded Date Recorded By Document 12/19/20 11:27 NORRIS [id number] 12/19/20 11:34 NORRIS 12/19/20 11:27 Wound Center Nurse 2 #49 R Dorsal foot -Correct Patient No -Correct Side, Site, Position No -Correct Procedure No -Procedure Performed No -Wound/Ulcer Outcome Not Healed 46-right 2nd toe -Time 11:28 -Correct Patient Yes -Correct Side, Site, Position Yes -Correct Procedure Yes -Procedure Performed Yes -Type of Procedure Debridement -Clinical Debridement Subcutaneous -Tissue Removed Subcutaneous -Post Debridement (cm) - Length 0.9 -Post Debridement (cm) - Width 0.4 -Post Debridement (cm) - Depth 0.1 -Total Square (Post) (cm) 0.36 -Area of Debridement (cm) - Length 0.9 -Area of Debridement (cm) - Width 0.4 -Total Square (Area) (cm) 0.36 -Tunneling No -Undermining/Tunneling No -Circular Undermining No -Wound/Ulcer Outcome Not Healed -Ulcer Cleansing Rinsed/ Irrigated with Saline -Foul Odor after Cleansing No -Bioengineered Tissue No -Bleeding Controlled with Pressure -Offloading Yes -Type of Offloading Surgical Shoe -Treatment Response Procedure Tolerated Well -Debridement - Subq, 1st 20sq cm No #35 L Stump -Time 11:29 -Correct Patient Yes -Correct Side, Site, Position Yes -Correct Procedure Yes -Procedure Performed Yes -Type of Procedure Debridement -Clinical Debridement Subcutaneous -Tissue Removed Subcutaneous -Post Debridement (cm) - Length 1.5 -Post Debridement (cm) - Width 2.2 -Post Debridement (cm) - Depth 0.6 -Total Square (Post) (cm) 3.30 -Area of Debridement (cm) - Length 1.5 -Area of Debridement (cm) - Width 2.2 -Total Square (Area) (cm) 3.30 -Tunneling No -Undermining/Tunneling No -Circular Undermining No -Wound/Ulcer Outcome Not Healed -Ulcer Cleansing Rinsed/ Irrigated with Saline -Foul Odor after Cleansing No -Bioengineered Tissue No -Bleeding Controlled with Pressure -Offloading No -Treatment Response Procedure Tolerated Well -Debridement - Subq, 1st 20sq cm Yes Pain Scale: 0-10 Numeric Is Patient Pain Free? Yes Assessment/Plan Assessment/Plan (1) Ulcer of left lower extremity with fat layer exposed: CODE(S): L97.922 - Non-pressure chronic ulcer of unspecified part of left lower leg with fat layer exposed (2) Ulcer of right foot with fat layer exposed: CODE(S): L97.512 - Non-pressure chronic ulcer of other part of right foot with fat layer exposed (3) Delayed wound healing: CODE(S): T14.8XXD - Other injury of unspecified body region, subsequent encounter (4) Type 2 diabetes mellitus with diabetic polyneuropathy: CODE(S): E11.42 - Type 2 diabetes mellitus with diabetic polyneuropathy (5) Localized edema: CODE(S): R60.0 - Localized edema (6) Ulcer of right lower extremity with fat layer exposed: CODE(S): L97.912 - Non-pressure chronic ulcer of unspecified part of right lower leg with fat layer exposed (7) Maceration of skin: CODE(S): L98.8 - Other specified disorders of the skin and subcutaneous tissue (8) Lymphedema: CODE(S): I89.0 - Lymphedema, not elsewhere classified (9) Infestation, maggots: CODE(S): B87.9 - Myiasis, unspecified (10) Cellulitis of right lower limb: CODE(S): L03.115 - Cellulitis of right lower limb PLAN: I reviewed and discussed his case. His ulcer were debrided as noted. His new ulcer site secondary to his trauma is noted. This is stable. He was reassured no local signs of infection are seen. To change dressing daily with Dakin wet-to-dry gauze next week. To wash the wound with antibacterial soap and water. To avoid applying foam to the forefoot for this is contributing to maceration. To change right posterior leg area with Adaptic. This right leg site was not debrided today due to its superficial nature. He was reassured no local signs of lower extremity infection or maggots were noted today. To continue with right lower extremity surgical shoe. Extra-depth diabetic shoes will be considered after his maceration, ulcer healed, and edema are controlled. To continue with automated wheelchair. To continue to optimize healing with improved glycemic index, continued weight reduction, and well-balanced [employer] nutrients. To continue with edema management including his compression wraps and also lymphedema pumps. It is noted he has not been able to elevate as much this past week and has increased edema. Additional Mateus wrap was applied prior to Tubigrip application splint to help reduce stump edema. To reduce salt in diet; this was discussed. He has resumed Lasix and was advised to continue his advised by his primary care physician. Farrow wrap was ordered for the right lower extremity. Leg circumference and leg length measurements were obtained today. This is medically necessary to prevent recurrence of leg ulcers and also to help heal his current limb ulcers. To continue with showering routine. To resume applying Lac-Hydrin lotion. Refill prescription was electronically sent to his pharmacy of choice. He completed course of advanced wound healing product application, epi fix. He was advised to return to clinic next week or call sooner if he has any worsening status. It is noted he was recently ill with bronchitis and hyperglycemia. He has an appointment scheduled tomorrow with his primary care physician was advised to follow-up. Note: SET speech recognition syrup machine laborer software was used to create portions of this document. Sound-alike and misspelled words, as well as other syrup machine laborer errors may be contained in the documentation. 20 minutes was spent on this encounter. This included face to face and non face to face care including preparing for the visit, reviewing the history, performing the exam, counseling and providing education to the patient, family, or caregiver, ordering medications/test/ procedures if indicated as documented, communicating with other healthcare providers, documenting information in the medical record, interpreting / sharing this information when indicated as documented, and care coordination. The medical decision making level is limited based on data including the review of prior external notes, review of a prior test, or ordering a test.
[2020-12-26 11:19] VITALS: BP 123/72; PULSE 67; RESP 18; TEMP 36.6
--- NOTE | 2020-12-26 12:00 | PCM.WC.PN ---
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 He also has multiple right foot ulcers and a left leg ulcer, and has been performing dressing changes as advised. He denies fever, chill, nausea, vomiting, redness, or odor. He has discolored drainage that has resolved after he ran out of dressing supplies. His nurse had used some old cotton cloth that was in an old drawer. Now his dressing is very saturated and green. He relates he also had Adaptic applied which he thinks is maybe holding moisture. He is doing the best he can to stay clean however he has not currently having help with daily dressing changes or routine showering either. He has been very fatigued. Progress of Wound: Stable right foot and left leg New right leg?posterior Objective Data Objective Data Vital Signs: Vital Signs Temp Pulse Resp BP 97.9 F 67 18 123/72 H 12/26/20 11:19 12/26/20 11:19 12/26/20 11:19 12/26/20 11:19 Physical Exam Extremity Extremity Narrative: No calf tenderness Diminished pulses Muscle wasting noted Left below-knee amputation and right hallux amputation Compartments remain soft to palpate bilateral lower extremities Skin Skin Narrative: no purulence, no streaking, no odor, no infection. Copious green and serosanguineous drainage noted to abdominal pad dressing. Full epithelialization /subhemorrhagic tissue to dorsal right foot and fully healed right leg ulcer. Worsening status maceration and skin peeling noted. Remaining granular wound to medial right second toe decreased. once dressing removed, no odor or local infection to either lower limb. no bogginess or fluctuance noted. Left leg stump site ulcer has granular and fibrous base also; unchanged. The adjacent skin is hairless and atrophic. Posterior right leg has multiple return wounds in a cluster with granulation tissue. There is no deep tissue exposure or infection or even granulation tissue seen. Neuro Neuro Narrative: lack of normal epicritic sensation via light touch is consistent with neuropathy status Debridement Note Debridement Note Wound debrided: posterior right leg / medial right second toe / left leg Wound Grade/Stage: 1 Type of Debridement: Excisional debridement Anesthesia Used: 4% Lidocaine Solution Depth: in the subcutaneous layer Percentage of wound debrided: 100 (right medial 2nd toe and left leg), 30 (posterior right leg cluster) and - Instrument Used: #15 blade Tissue Removed: fibrous, devitalized subcutaneous, biofilm, slough Severity: Fat Layer Exposed Amount of bleeding with debridement: Mild Bleeding Controlled with: Pressure Patient tolerated procedure: Patient tolerated procedure well Post-Debridement Measurements and Additional Note: Post-Debridement Measurements/Treatment - Nurse 1 - General Ulcer Assessment Start: 12/19/20 11:07 Freq: Status: Active Protocol: SUSAN Activity Type Activity Date Activity User E-Sign Co-Sign Detail Recorded Client Recorded Date Recorded By Document 12/19/20 11:07 ML [id number] 12/19/20 11:20 ML Document 12/26/20 11:19 RB [id number] 12/26/20 11:29 RB 12/19/20 12/26/20 11:07 11:19 - Today's Visit Information Type of service Follow-up Visit Follow-up Visit (Physician/TRADE MANAGER (Physician/TRADE MANAGER ) ) Arrival Mode Wheelchair Wheelchair Transfer Assistance None None Patient Identification Verified (Name & Yes Yes ) Patient Requires Transmission-Based No No Precautions Finger Stick Blood Sugar(mg/dl) (if 191 indicated): Blood Sugar Stated by Patient Vital Signs Temperature (97.8 F-99.1 F) 97.6 F L 97.9 F Temperature Source Temporal Temporal Pulse Rate (60-100) 69 67 Pulse Location Monitor Monitor Respiratory Rate (12-18) 22 H 18 Respiratory rate source Observation Observation Blood Pressure (90/60-120/80) 173/57 H 123/72 H Blood Pressure Mean (mm Hg) 95 89 Source Monitor Monitor Position Sitting Blood Pressure Location Left Arm History Since Last Visit- (Skip if this is Patient's initial visit) Have you changed medications since your No No last visit? Any new allergies or adverse reactions No No Had a fall/change in ADL's that may No No increase risk of falls Signs or symptoms of abuse and/or No No neglect since last visit Have you been in the hospital since your No No last visit? Has dressing in place as prescribed Yes Yes Has compression in place as prescribed Yes Yes Has offloadiing in place as prescribed Yes No Experienced any changes in pain level or No No management Left Footwear No Footwear Right Footwear Surgical Shoe with pressure relief insole Pain Scale: 0-10 Numeric Is Patient Pain Free? Yes Yes WC - Nurse 1 - General Ulcer Measurement Start: 12/19/20 11:07 Freq: Status: Active Protocol: Activity Type Activity Date Activity User E-Sign Co-Sign Detail Recorded Client Recorded Date Recorded By Document 12/19/20 11:07 ML [id number] 12/19/20 11:20 ML Document 12/26/20 11:19 RB [id number] 12/26/20 11:29 RB 12/19/20 12/26/20 11:07 11:19 Wound Center Nurse 1 51. RLE post calf cluster -Combined with other wound No -Current Size (cm) - Length 18.5 -Current Size (cm) - Width 12 -Current Size (cm) - Depth 0.2 -Total Square Cm 222.0 -Tunneling No -Undermining/Tunneling No -Circular Undermining No -Exudate Amt Large -Exudate Type Serosanguineous -Wound Margin Distinct, Outline Attached -Granulation Amt Large (67-100%) -Granulation Quality [place] -Slough/Fibrin Yes -Necrosis Amt Large (67-100%) -Necrotic Tissue Type Adherent Slough -Structure Exposed N/A -Texture (Susy-wound Skin Appearance) Not Assessed -Moisture (Susy-wound Skin Appearance) Assessed, Maceration -Color (Ssuy-wound Skin Appearance) Assessed -Temperature (Susy-wound Skin No Abnormality Appearance) (Pt Warm) -Tenderness on Palpation (Susy-wound No Skin Appearance) -Ulcer Cleansing Wound Cleanser -Foul Odor after Cleansing No -Anesthetic Used 4% Lidocaine Solution #49 R Dorsal foot -Combined with other wound No -Current Size (cm) - Length 4 7 -Current Size (cm) - Width 9 10.5 -Current Size (cm) - Depth 0.1 0.1 -Total Square Cm 36 73.5 -Tunneling No -Undermining/Tunneling No -Circular Undermining No -Exudate Amt Large Large -Exudate Type Yellow/Green Serosanguineous -Wound Margin Distinct, Distinct, Outline Outline Attached Attached -Granulation Amt Large (67-100%) Medium (34-66%) -Granulation Quality [place] -Slough/Fibrin Yes Yes -Necrosis Amt Large (67-100%) Small (1-33%) -Necrotic Tissue Type Adherent Slough Adherent Slough -Structure Exposed N/A -Texture (Susy-wound Skin Appearance) Excoriation Assessed -Moisture (Susy-wound Skin Appearance) Maceration Dry/Scaly -Color (Susy-wound Skin Appearance) Hemosiderin Assessed Staining -Temperature (Susy-wound Skin No Abnormality No Abnormality Appearance) (Pt Warm) (Pt Warm) -Tenderness on Palpation (Susy-wound No Skin Appearance) -Ulcer Cleansing Soap and Water Wound Cleanser -Foul Odor after Cleansing Yes No -Anesthetic Used 4% Lidocaine Solution 46-right 2nd toe -Combined with other wound No -Current Size (cm) - Length 2.6 3.5 -Current Size (cm) - Width 2.4 0.2 -Current Size (cm) - Depth 0.1 1 -Total Square Cm 6.24 0.70 -Tunneling No -Undermining/Tunneling No -Circular Undermining No -Exudate Amt Large Large -Exudate Type Yellow/Green Serosanguineous -Wound Margin Distinct, Distinct, Outline Outline Attached Attached -Granulation Amt Large (67-100%) Large (67-100%) -Granulation Quality [place] -Slough/Fibrin Yes -Necrosis Amt Large (67-100%) Medium (34-66%) -Necrotic Tissue Type Adherent Slough Adherent Slough -Structure Exposed N/A -Texture (Susy-wound Skin Appearance) Excoriation Assessed -Moisture (Susy-wound Skin Appearance) Maceration Assessed,Dry/ Scaly -Color (Susy-wound Skin Appearance) Hemosiderin Assessed Staining -Temperature (Susy-wound Skin No Abnormality No Abnormality Appearance) (Pt Warm) (Pt Warm) -Ulcer Cleansing Soap and Water Rinsed/ Irrigated with Saline -Foul Odor after Cleansing No No -Anesthetic Used 4% Lidocaine 4% Lidocaine Solution Solution #35 L Stump -Combined with other wound No -Current Size (cm) - Length 1.4 1.1 -Current Size (cm) - Width 2.2 2 -Current Size (cm) - Depth 0.6 0.3 -Total Square Cm 3.08 2.2 -Tunneling No -Undermining/Tunneling No -Circular Undermining No -Exudate Amt Large Medium -Exudate Type Yellow/Green Serosanguineous -Wound Margin Distinct, Distinct, Outline Outline Attached Attached -Granulation Amt Large (67-100%) Medium (34-66%) -Granulation Quality [place] -Slough/Fibrin Yes -Necrosis Amt Large (67-100%) Small (1-33%) -Necrotic Tissue Type Adherent Slough Adherent Slough -Structure Exposed N/A -Texture (Susy-wound Skin Appearance) Excoriation Assessed -Moisture (Susy-wound Skin Appearance) Maceration Assessed -Color (Susy-wound Skin Appearance) Hemosiderin Assessed Staining -Temperature (Susy-wound Skin No Abnormality No Abnormality Appearance) (Pt Warm) (Pt Warm) -Tenderness on Palpation (Susy-wound No No Skin Appearance) -Ulcer Cleansing Soap and Water Wound Cleanser -Foul Odor after Cleansing No No -Anesthetic Used 4% Lidocaine 4% Lidocaine Solution Solution Right Calf (cm) 47.6 Right Ankle (cm) 30.3 WC - Nurse 2 - General Ulcer CM Notes Start: 12/19/20 11:07 Freq: Status: Active Protocol: Activity Type Activity Date Activity User E-Sign Co-Sign Detail Recorded Client Recorded Date Recorded By Document 12/19/20 11:27 [id number] 12/19/20 11:34 Document 12/26/20 11:40 [id number] 12/26/20 11:49 12/19/20 12/26/20 11:27 11:40 Wound Center Nurse 2 51. RLE post calf cluster -Time 11:42 -Correct Patient Yes -Correct Side, Site, Position Yes -Correct Procedure Yes -Procedure Performed Yes -Type of Procedure Debridement -Clinical Debridement Subcutaneous -Tissue Removed Subcutaneous -Post Debridement (cm) - Length 10 -Post Debridement (cm) - Width 6.3 -Post Debridement (cm) - Depth 0.1 -Total Square (Post) (cm) 63.0 -Area of Debridement (cm) - Length 10 -Area of Debridement (cm) - Width 6.3 -Total Square (Area) (cm) 63.0 -Tunneling No -Undermining/Tunneling No -Circular Undermining No -Wound/Ulcer Outcome Not Healed -Ulcer Cleansing Rinsed/ Irrigated with Saline -Foul Odor after Cleansing No -Bioengineered Tissue No -Bleeding Controlled with Pressure -Offloading No -Treatment Response Procedure Tolerated Well -Debridement - Subq, 1st 20sq cm Yes -Debridement, SubQ, ea addt'l 20sq cm 3 or part thereof #49 R Dorsal foot -Time 11:43 -Correct Patient No No -Correct Side, Site, Position No No -Correct Procedure No No -Procedure Performed No No -Wound/Ulcer Outcome Not Healed Not Healed 46-right 2nd toe -Time 11: 11:44 -Correct Patient Yes Yes -Correct Side, Site, Position Yes Yes -Correct Procedure Yes Yes -Procedure Performed Yes Yes -Type of Procedure Debridement Debridement -Clinical Debridement Subcutaneous Subcutaneous -Tissue Removed Subcutaneous Subcutaneous -Post Debridement (cm) - Length 0.9 3.5 -Post Debridement (cm) - Width 0.4 0.3 -Post Debridement (cm) - Depth 0.1 0.1 -Total Square (Post) (cm) 0.36 1.05 -Area of Debridement (cm) - Length 0.9 3.5 -Area of Debridement (cm) - Width 0.4 0.3 -Total Square (Area) (cm) 0.36 1.05 -Tunneling No No -Undermining/Tunneling No No -Circular Undermining No No -Wound/Ulcer Outcome Not Healed Not Healed -Ulcer Cleansing Rinsed/ Rinsed/ Irrigated with Irrigated with Saline Saline -Foul Odor after Cleansing No No -Bioengineered Tissue No No -Bleeding Controlled with Pressure Pressure -Offloading Yes Yes -Type of Offloading Surgical Shoe Surgical Shoe -Treatment Response Procedure Procedure Tolerated Well Tolerated Well -Debridement - Subq, 1st 20sq cm No No #35 L Stump -Time 11: 11:44 -Correct Patient Yes Yes -Correct Side, Site, Position Yes Yes -Correct Procedure Yes Yes -Procedure Performed Yes Yes -Type of Procedure Debridement Debridement -Clinical Debridement Subcutaneous Subcutaneous -Tissue Removed Subcutaneous Subcutaneous -Post Debridement (cm) - Length 1.5 1.2 -Post Debridement (cm) - Width 2.2 2 -Post Debridement (cm) - Depth 0.6 0.3 -Total Square (Post) (cm) 3.30 2.4 -Area of Debridement (cm) - Length 1.5 1.2 -Area of Debridement (cm) - Width 2.2 2 -Total Square (Area) (cm) 3.30 2.4 -Tunneling No No -Undermining/Tunneling No No -Circular Undermining No No -Wound/Ulcer Outcome Not Healed Not Healed -Ulcer Cleansing Rinsed/ Rinsed/ Irrigated with Irrigated with Saline Saline -Foul Odor after Cleansing No No -Bioengineered Tissue No No -Bleeding Controlled with Pressure Pressure -Offloading No No -Treatment Response Procedure Procedure Tolerated Well Tolerated Well -Debridement - Subq, 1st 20sq cm Yes No Pain Scale: 0-10 Numeric Is Patient Pain Free? Yes - Nurse 3 - General Ulcer D/C NN Start: 12/19/20 11:07 Freq: Status: Active Protocol: Activity Type Activity Date Activity User E-Sign Co-Sign Detail Recorded Client Recorded Date Recorded By Document 12/19/20 11:42 RB [id number] 12/19/20 11:45 RB Document 12/26/20 11:52 KR [id number] 12/26/20 11:55 KR 12/19/20 12/26/20 11:42 11:52 Wound Care Nurse 3 51. RLE post calf cluster -Primary Dressing Applied Optilok 6.5x10, Optilok 8x12 -Other Dressing abd -Optilok 6.5x10 1 -Optilok 8x12 1 #49 R Dorsal foot -Ulcer Cleansing Wound Cleanser -Other Dressing dakins dakins moistened gauze -Primary Dressing Covered/Secured with Dry Gauze,Dry Dry Gauze, Gauze & Roll Secured with Gauze,Secured Tape with Tape 46-right 2nd toe -Ulcer Cleansing Wound Cleanser -Other Dressing dakins dakins moistened gauze -Primary Dressing Covered/Secured with Dry Gauze,Dry Dry Gauze, Gauze & Roll Secured with Gauze,Secured Tape with Tape #35 L Stump -Ulcer Cleansing Wound Cleanser -Other Dressing dakins dakins and abd moistened gauze -Primary Dressing Covered/Secured with Dry Gauze,Dry Dry Gauze, Gauze & Roll Secured with Gauze,Secured Tape with Tape Right -Other farrow wrap Left -Stockings Yes Treatment Response Procedure Tolerated Well Pain Scale: 0-10 Numeric Is Patient Pain Free? Yes Yes - Visit Discharge Discharge Condition Stable Stable Ambulatory Status Ambulatory Transportation Private Auto [employer] transit Medication Reconcilliation completed & No provided to patient/care provider Clinical Summary of Care Provided Yes Assessment/Plan Assessment/Plan (1) Ulcer of left lower extremity with fat layer exposed: CODE(S): L97.922 - Non-pressure chronic ulcer of unspecified part of left lower leg with fat layer exposed (2) Ulcer of right foot with fat layer exposed: CODE(S): L97.512 - Non-pressure chronic ulcer of other part of right foot with fat layer exposed (3) Delayed wound healing: CODE(S): T14.8XXD - Other injury of unspecified body region, subsequent encounter (4) Type 2 diabetes mellitus with diabetic polyneuropathy: CODE(S): E11.42 - Type 2 diabetes mellitus with diabetic polyneuropathy (5) Localized edema: CODE(S): R60.0 - Localized edema (6) Ulcer of right lower extremity with fat layer exposed: CODE(S): L97.912 - Non-pressure chronic ulcer of unspecified part of right lower leg with fat layer exposed (7) Maceration of skin: CODE(S): L98.8 - Other specified disorders of the skin and subcutaneous tissue (8) Lymphedema: CODE(S): I89.0 - Lymphedema, not elsewhere classified (9) Cellulitis of right lower limb: CODE(S): L03.115 - Cellulitis of right lower limb PLAN: I reviewed and discussed his case. His ulcer were debrided as noted. His new ulcer site is noted. This is stable. He was reassured no local signs of infection are seen. To change dressing daily with Dakin wet-to-dry gauze next week. To wash the wound with antibacterial soap and water. To avoid applying foam to the forefoot for this is contributing to maceration. To discontinue all Adaptic use at this time. I encourage routine showering at least once a week if possible. He has a new nurse that is scheduled to come out Thursday through Thursday which I think will help keep this filter cleaner and cylinder machine operator pulp drier. I also recommend a super absorption alginate dressing such as caremax if this is available. He was reassured no local signs of lower extremity infection or maggots were noted today. His drainage however is very abnormal and discolored. His prior cultures are noted. A refill for cefdinir 300 mg twice daily was sent to [facility] yesterday. He was advised to complete the course. To continue with right lower extremity surgical shoe. He obtained a new one that is filter cleaner and fits well; I evaluated this today and threw away his old shoe. To continue with automated wheelchair. To continue to optimize healing with improved glycemic index, continued weight reduction, and well-balanced [employer] nutrients. To continue with edema management including his compression wraps and also lymphedema pumps. It is noted he has not been able to elevate as much this past week and has increased edema. Additional Mateus wrap was applied prior to Tubigrip application splint to help reduce stump edema. To reduce salt in diet; this was discussed. He has resumed Lasix and was advised to continue his advised by his primary care physician. To continue with showering routine. To resume applying Lac-Hydrin lotion. He completed course of advanced wound healing product application, epi fix. He was advised to return to clinic next week or call sooner if he has any worsening status. Note: [employer] speech recognition treatment manager software was used to create portions of this document. Sound-alike and misspelled words, as well as other treatment manager errors may be contained in the documentation. 20 minutes was spent on this encounter. This included face to face and non face to face care including preparing for the visit, reviewing the history, performing the exam, counseling and providing education to the patient, family, or caregiver, ordering medications/test/ procedures if indicated as documented, communicating with other healthcare providers, documenting information in the medical record, interpreting / sharing this information when indicated as documented, and care coordination. The medical decision making level is limited based on data including the review of prior external notes, review of a prior test, or ordering a test.
[2021-01-02 11:07] VITALS: BP 182/64; PULSE 73; RESP 20; TEMP 36.6
--- NOTE | 2021-01-02 13:00 | PCM.WC.PN ---
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 He also has multiple right foot ulcers and a left leg ulcer, and has been performing dressing changes as advised. He denies fever, chill, nausea, vomiting, redness, or odor. 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 He reports he has some peripheral skin peeling. He has refused to take a shower and he does not want to start taking showers again. After discussing it though he has agreed to request help taking 1 shower a week. Progress of Wound: All stable Objective Data Objective Data Vital Signs: Vital Signs Temp Pulse Resp BP 97.8 F 73 20 H 182/64 H 01/02/21 11:07 01/02/21 11:07 01/02/21 11:07 01/02/21 11:07 Physical Exam Extremity Extremity Narrative: No calf tenderness Diminished pulses Muscle wasting noted Left below-knee amputation and right hallux amputation Compartments remain soft to palpate bilateral lower extremities Skin Skin Narrative: no purulence, no streaking, no odor, no infection. resolved green drainage. Only serosanguineous drainage noted. Full epithelialization /subhemorrhagic tissue to dorsal right foot. no bogginess or fluctuance noted. Left leg stump site ulcer has granular and fibrous base also; unchanged. The adjacent skin is hairless and atrophic. There is no deep tissue exposure or infection or even granulation tissue seen. Neuro Neuro Narrative: lack of normal epicritic sensation via light touch is consistent with neuropathy status Debridement Note Debridement Note Wound debrided: Right posterior leg, right medial second toe, left leg Wound Grade/Stage: 1 Type of Debridement: Excisional debridement Anesthesia Used: 4% Lidocaine Solution Depth: in the subcutaneous layer Percentage of wound debrided: 100 Instrument Used: #15 blade Tissue Removed: fibrous, devitalized subcutaneous, biofilm, slough Severity: Fat Layer Exposed Amount of bleeding with debridement: Mild Bleeding Controlled with: Pressure Patient tolerated procedure: Patient tolerated procedure well Post-Debridement Measurements and Additional Note: Post-Debridement Measurements/Treatment XIMENA - Nurse 1 - General Ulcer Assessment Start: 12/19/20 11:07 Freq: Status: Active Protocol: SUSAN Activity Type Activity Date Activity User E-Sign Co-Sign Detail Recorded Client Recorded Date Recorded By Document 12/19/20 11:07 ML [id number] 12/19/20 11:20 ML Document 12/26/20 11:19 RB [id number] 12/26/20 11:29 RB Document 01/02/21 11:07 DL [id number] 01/02/21 11:23 DL 12/19/20 12/26/20 01/02/21 11:07 11:19 11:07 - Today's Visit Information Type of service Follow-up Visit Follow-up Visit Follow-up Visit (Physician/PRODUCTION OR PLANT ENGINEER (Physician/PRODUCTION OR PLANT ENGINEER (Physician/PRODUCTION OR PLANT ENGINEER ) ) ) Arrival Mode Wheelchair Wheelchair Wheelchair Transfer Assistance None None None Patient Identification Verified (Name & Yes Yes Yes ) Patient Requires Transmission-Based No No No Precautions Finger Stick Blood Sugar(mg/dl) (if 191 134 indicated): Blood Sugar Stated by Stated by Patient Patient Vital Signs Temperature (97.8 F-99.1 F) 97.6 F L 97.9 F 97.8 F Temperature Source Temporal Temporal Temporal Pulse Rate (60-100) 69 67 73 Pulse Location Monitor Monitor Monitor Respiratory Rate (12-18) 22 H 18 20 H Respiratory rate source Observation Observation Observation Blood Pressure (90/60-120/80) 173/57 H 123/72 H 182/64 H Blood Pressure Mean (mm Hg) 95 89 103 Source Monitor Monitor Monitor Position Sitting Blood Pressure Location Left Arm History Since Last Visit- (Skip if this is Patient's initial visit) Have you changed medications since your No No No last visit? Any new allergies or adverse reactions No No No Had a fall/change in ADL's that may No No No increase risk of falls Signs or symptoms of abuse and/or No No No neglect since last visit Have you been in the hospital since your No No No last visit? Has dressing in place as prescribed Yes Yes Yes Has compression in place as prescribed Yes Yes Yes Has offloadiing in place as prescribed Yes No Yes Experienced any changes in pain level or No No No management Left Footwear No Footwear Surgical Shoe with pressure relief insole Right Footwear Surgical Shoe with pressure relief insole Pain Scale: 0-10 Numeric Is Patient Pain Free? Yes Yes Yes - Nurse 1 - General Ulcer Measurement Start: 12/19/20 11:07 Freq: Status: Active Protocol: Activity Type Activity Date Activity User E-Sign Co-Sign Detail Recorded Client Recorded Date Recorded By Document 12/19/20 11:07 ML [id number] 12/19/20 11:20 ML Document 12/26/20 11:19 RB [id number] 12/26/20 11:29 RB Document 01/02/21 11:07 DL [id number] 01/02/21 11:23 DL 12/19/20 12/26/20 01/02/21 11:07 11:19 11:07 Wound Center Nurse 1 51. RLE post calf cluster -Combined with other wound No -Current Size (cm) - Length 18.5 13 -Current Size (cm) - Width 12 7 -Current Size (cm) - Depth 0.2 0.1 -Total Square Cm 222.0 91 -Photo Taken No -Tunneling No -Undermining/Tunneling No -Circular Undermining No -Exudate Amt Large Medium -Exudate Type Serosanguineous Serosanguineous -Wound Margin Distinct, Distinct, Outline Outline Attached Attached -Granulation Amt Large (67-100%) Large (67-100%) -Granulation Quality [place] Red -Slough/Fibrin Yes -Necrosis Amt Large (67-100%) Small (1-33%) -Necrotic Tissue Type Adherent Slough Adherent Slough -Structure Exposed N/A N/A -Texture (Susy-wound Skin Appearance) Not Assessed Scarring -Moisture (Susy-wound Skin Appearance) Assessed, No Abnormality Maceration -Color (Susy-wound Skin Appearance) Assessed Hemosiderin Staining -Temperature (Susy-wound Skin No Abnormality No Abnormality Appearance) (Pt Warm) (Pt Warm) -Tenderness on Palpation (Susy-wound No No Skin Appearance) -Ulcer Cleansing Wound Cleanser Soap and Water -Foul Odor after Cleansing No No -Anesthetic Used 4% Lidocaine 4% Lidocaine Solution Solution #49 R Dorsal foot -Combined with other wound No -Current Size (cm) - Length 4 7 3.8 -Current Size (cm) - Width 9 10.5 9.5 -Current Size (cm) - Depth 0.1 0.1 0.1 -Total Square Cm 36 73.5 36.10 -Photo Taken No -Tunneling No -Undermining/Tunneling No -Circular Undermining No -Exudate Amt Large Large Large -Exudate Type Yellow/Green Serosanguineous Yellow/Green -Wound Margin Distinct, Distinct, Indistinct, Non Outline Outline -Visible Attached Attached -Granulation Amt Large (67-100%) Medium (34-66%) Medium (34-66%) -Granulation Quality [place] -Slough/Fibrin Yes Yes -Necrosis Amt Large (67-100%) Small (1-33%) Medium (34-66%) -Necrotic Tissue Type Adherent Slough Adherent Slough Adherent Slough -Structure Exposed N/A N/A -Texture (Ssuy-wound Skin Appearance) Excoriation Assessed Localized Edema ,Scarring -Moisture (Susy-wound Skin Appearance) Maceration Dry/Scaly Weeping -Color (Susy-wound Skin Appearance) Hemosiderin Assessed Hemosiderin Staining Staining -Temperature (Susy-wound Skin No Abnormality No Abnormality No Abnormality Appearance) (Pt Warm) (Pt Warm) (Pt Warm) -Tenderness on Palpation (Susy-wound No Yes Skin Appearance) -Ulcer Cleansing Soap and Water Wound Cleanser Not Cleansed -Foul Odor after Cleansing Yes No No -Anesthetic Used 4% Lidocaine 4% Lidocaine Solution Solution 46-right 2nd toe -Combined with other wound No -Current Size (cm) - Length 2.6 3.5 2.8 -Current Size (cm) - Width 2.4 0.2 2.8 -Current Size (cm) - Depth 0.1 1 0.1 -Total Square Cm 6.24 0.70 7.84 -Photo Taken No -Tunneling No -Undermining/Tunneling No -Circular Undermining No -Exudate Amt Large Large Medium -Exudate Type Yellow/Green Serosanguineous Yellow/Green -Wound Margin Distinct, Distinct, Indistinct, Non Outline Outline -Visible Attached Attached -Granulation Amt Large (67-100%) Large (67-100%) Medium (34-66%) -Granulation Quality [place] -Slough/Fibrin Yes -Necrosis Amt Large (67-100%) Medium (34-66%) Medium (34-66%) -Necrotic Tissue Type Adherent Slough Adherent Slough Adherent Slough -Structure Exposed N/A N/A -Texture (Susy-wound Skin Appearance) Excoriation Assessed Localized Edema ,Scarring -Moisture (Susy-wound Skin Appearance) Maceration Assessed,Dry/ Weeping Scaly -Color (Susy-wound Skin Appearance) Hemosiderin Assessed Hemosiderin Staining Staining -Temperature (Susy-wound Skin No Abnormality No Abnormality No Abnormality Appearance) (Pt Warm) (Pt Warm) (Pt Warm) -Tenderness on Palpation (Susy-wound No Skin Appearance) -Ulcer Cleansing Soap and Water Rinsed/ Soap and Water Irrigated with Saline -Foul Odor after Cleansing No No Yes -Anesthetic Used 4% Lidocaine 4% Lidocaine Solution Solution #35 L Stump -Combined with other wound No -Current Size (cm) - Length 1.4 1.1 1.6 -Current Size (cm) - Width 2.2 2 2.5 -Current Size (cm) - Depth 0.6 0.3 0.6 -Total Square Cm 3.08 2.2 4.00 -Photo Taken No -Tunneling No -Undermining/Tunneling No -Circular Undermining No -Exudate Amt Large Medium Medium -Exudate Type Yellow/Green Serosanguineous Serosanguineous -Wound Margin Distinct, Distinct, Thickened & Outline Outline Rolled Under Attached Attached -Granulation Amt Large (67-100%) Medium (34-66%) Medium (34-66%) -Granulation Quality [place] -Slough/Fibrin Yes -Necrosis Amt Large (67-100%) Small (1-33%) Medium (34-66%) -Necrotic Tissue Type Adherent Slough Adherent Slough Adherent Slough -Structure Exposed N/A N/A -Texture (Susy-wound Skin Appearance) Excoriation Assessed Scarring -Moisture (Susy-wound Skin Appearance) Maceration Assessed Dry/Scaly -Color (Susy-wound Skin Appearance) Hemosiderin Assessed Hemosiderin Staining Staining -Temperature (Susy-wound Skin No Abnormality No Abnormality No Abnormality Appearance) (Pt Warm) (Pt Warm) (Pt Warm) -Tenderness on Palpation (Susy-wound No No No Skin Appearance) -Ulcer Cleansing Soap and Water Wound Cleanser Soap and Water -Foul Odor after Cleansing No No No -Anesthetic Used 4% Lidocaine 4% Lidocaine 4% Lidocaine Solution Solution Solution Right Calf (cm) 47.6 45.5 Right Ankle (cm) 30.3 28.5 WC - Nurse 2 - General Ulcer CM Notes Start: 12/19/20 11:07 Freq: Status: Active Protocol: Activity Type Activity Date Activity User E-Sign Co-Sign Detail Recorded Client Recorded Date Recorded By Document 12/19/20 11:27 [id number] 12/19/20 11:34 Document 12/26/20 11:40 [id number] 12/26/20 11:49 Document 01/02/21 11:31 [id number] 01/02/21 11:38 12/19/20 12/26/20 01/02/21 11:27 11:40 11:31 Wound Center Nurse 2 51. RLE post calf cluster -Time 11:42 11:31 -Correct Patient Yes Yes -Correct Side, Site, Position Yes Yes -Correct Procedure Yes Yes -Procedure Performed Yes Yes -Type of Procedure Debridement Debridement -Clinical Debridement Subcutaneous Subcutaneous -Tissue Removed Subcutaneous Subcutaneous -Post Debridement (cm) - Length 10 13 -Post Debridement (cm) - Width 6.3 7.1 -Post Debridement (cm) - Depth 0.1 0.1 -Total Square (Post) (cm) 63.0 92.3 -Area of Debridement (cm) - Length 10 13 -Area of Debridement (cm) - Width 6.3 7.1 -Total Square (Area) (cm) 63.0 92.3 -Tunneling No No -Undermining/Tunneling No No -Circular Undermining No No -Wound/Ulcer Outcome Not Healed Not Healed -Ulcer Cleansing Rinsed/ Rinsed/ Irrigated with Irrigated with Saline Saline -Foul Odor after Cleansing No No -Bioengineered Tissue No No -Bleeding Controlled with Pressure Pressure -Offloading No No -Treatment Response Procedure Procedure Tolerated Well Tolerated Well -Debridement - Subq, 1st 20sq cm Yes Yes -Debridement, SubQ, ea addt'l 20sq cm 3 4 or part thereof #49 R Dorsal foot -Time 11:43 -Correct Patient No No No -Correct Side, Site, Position No No No -Correct Procedure No No No -Procedure Performed No No No -Wound/Ulcer Outcome Not Healed Not Healed Not Healed 46-right 2nd toe -Time 11:28 11:44 11:32 -Correct Patient Yes Yes Yes -Correct Side, Site, Position Yes Yes Yes -Correct Procedure Yes Yes Yes -Procedure Performed Yes Yes Yes -Type of Procedure Debridement Debridement Debridement -Clinical Debridement Subcutaneous Subcutaneous Subcutaneous -Tissue Removed Subcutaneous Subcutaneous Subcutaneous -Post Debridement (cm) - Length 0.9 3.5 1 -Post Debridement (cm) - Width 0.4 0.3 0.2 -Post Debridement (cm) - Depth 0.1 0.1 0.2 -Total Square (Post) (cm) 0.36 1.05 0.2 -Area of Debridement (cm) - Length 0.9 3.5 1 -Area of Debridement (cm) - Width 0.4 0.3 0.2 -Total Square (Area) (cm) 0.36 1.05 0.2 -Tunneling No No No -Undermining/Tunneling No No No -Circular Undermining No No No -Wound/Ulcer Outcome Not Healed Not Healed Not Healed -Ulcer Cleansing Rinsed/ Rinsed/ Rinsed/ Irrigated with Irrigated with Irrigated with Saline Saline Saline -Foul Odor after Cleansing No No No -Bioengineered Tissue No No No -Bleeding Controlled with Pressure Pressure Pressure -Offloading Yes Yes No -Type of Offloading Surgical Shoe Surgical Shoe -Treatment Response Procedure Procedure Procedure Tolerated Well Tolerated Well Tolerated Well -Debridement - Subq, 1st 20sq cm No No No #35 L Stump -Time 11:29 11:44 11:33 -Correct Patient Yes Yes Yes -Correct Side, Site, Position Yes Yes Yes -Correct Procedure Yes Yes Yes -Procedure Performed Yes Yes Yes -Type of Procedure Debridement Debridement Debridement -Clinical Debridement Subcutaneous Subcutaneous Subcutaneous -Tissue Removed Subcutaneous Subcutaneous Subcutaneous -Post Debridement (cm) - Length 1.5 1.2 1.6 -Post Debridement (cm) - Width 2.2 2 2.6 -Post Debridement (cm) - Depth 0.6 0.3 0.1 -Total Square (Post) (cm) 3.30 2.4 4.16 -Area of Debridement (cm) - Length 1.5 1.2 1.6 -Area of Debridement (cm) - Width 2.2 2 2.6 -Total Square (Area) (cm) 3.30 2.4 4.16 -Tunneling No No No -Undermining/Tunneling No No No -Circular Undermining No No No -Wound/Ulcer Outcome Not Healed Not Healed Not Healed -Ulcer Cleansing Rinsed/ Rinsed/ Rinsed/ Irrigated with Irrigated with Irrigated with Saline Saline Saline -Foul Odor after Cleansing No No No -Bioengineered Tissue No No No -Bleeding Controlled with Pressure Pressure Pressure -Offloading No No No -Treatment Response Procedure Procedure Procedure Tolerated Well Tolerated Well Tolerated Well -Debridement - Subq, 1st 20sq cm Yes No No Pain Scale: 0-10 Numeric Is Patient Pain Free? Yes Yes WC - Nurse 3 - General Ulcer D/C NN Start: 12/19/20 11:07 Freq: Status: Active Protocol: Activity Type Activity Date Activity User E-Sign Co-Sign Detail Recorded Client Recorded Date Recorded By Document 12/19/20 11:42 RB [id number] 12/19/20 11:45 RB Document 12/26/20 11:52 KR [id number] 12/26/20 11:55 KR Document 01/02/21 11:42 RB [id number] 01/02/21 11:47 RB 12/19/20 12/26/20 01/02/21 11:42 11:52 11:42 Wound Care Nurse 3 51. RLE post calf cluster -Primary Dressing Applied Optilok 6.5x10, Optilok 8x12 -Other Dressing abd moistened dakins solution gauze -Primary Dressing Covered/Secured with Dry Gauze,Dry Gauze & Roll Gauze,Secured with Tape -Optilok 6.5x10 1 -Optilok 8x12 1 #49 R Dorsal foot -Ulcer Cleansing Wound Cleanser -Other Dressing dakins dakins moistened moistened gauze dakins solution gauze -Primary Dressing Covered/Secured with Dry Gauze,Dry Dry Gauze, Dry Gauze,Dry Gauze & Roll Secured with Gauze & Roll Gauze,Secured Tape Gauze,Secured with Tape with Tape 46-right 2nd toe -Ulcer Cleansing Wound Cleanser -Other Dressing dakins dakins dakins moistened gauze moistened gauze -Primary Dressing Covered/Secured with Dry Gauze,Dry Dry Gauze, Dry Gauze,Dry Gauze & Roll Secured with Gauze & Roll Gauze,Secured Tape Gauze,Secured with Tape with Tape #35 L Stump -Ulcer Cleansing Wound Cleanser -Other Dressing dakins dakins and abd dakins moistened gauze moistened gauze -Primary Dressing Covered/Secured with Dry Gauze,Dry Dry Gauze, Dry Gauze,Dry Gauze & Roll Secured with Gauze & Roll Gauze,Secured Tape Gauze,Secured with Tape with Tape Right -Other farrow wrap circaid Left -Stockings Yes -Other single layer tubigrip Treatment Response Procedure Procedure Tolerated Well Tolerated Well Pain Scale: 0-10 Numeric Is Patient Pain Free? Yes Yes Yes WC - Visit Discharge Discharge Condition Stable Stable Stable Ambulatory Status Ambulatory Wheelchair Transportation Private Auto [place] transit Private Auto Medication Reconcilliation completed & No No provided to patient/care provider Clinical Summary of Care Provided Yes Yes Assessment/Plan Assessment/Plan (1) Ulcer of left lower extremity with fat layer exposed: CODE(S): L97.922 - Non-pressure chronic ulcer of unspecified part of left lower leg with fat layer exposed (2) Ulcer of right foot with fat layer exposed: CODE(S): L97.512 - Non-pressure chronic ulcer of other part of right foot with fat layer exposed (3) Delayed wound healing: CODE(S): T14.8XXD - Other injury of unspecified body region, subsequent encounter (4) Type 2 diabetes mellitus with diabetic polyneuropathy: CODE(S): E11.42 - Type 2 diabetes mellitus with diabetic polyneuropathy (5) Localized edema: CODE(S): R60.0 - Localized edema (6) Ulcer of right lower extremity with fat layer exposed: CODE(S): L97.912 - Non-pressure chronic ulcer of unspecified part of right lower leg with fat layer exposed (7) Maceration of skin: CODE(S): L98.8 - Other specified disorders of the skin and subcutaneous tissue (8) Lymphedema: CODE(S): I89.0 - Lymphedema, not elsewhere classified (9) Cellulitis of right lower limb: CODE(S): L03.115 - Cellulitis of right lower limb PLAN: I reviewed and discussed his case. His ulcer were debrided as noted. He was reassured no local signs of infection are seen. Irregular drainage and odor have resolved. To change dressing daily with Dakin wet-to-dry gauze next week. To use super exertion dressing if possible and available. To wash the wound with antibacterial soap and water. To avoid applying foam to the forefoot for this is contributing to maceration. To discontinue all Adaptic use at this time. I encourage routine showering at least once a week if possible. He is apprehensive and I advised him this is necessary to prevent infections and maintain good skin integrity to avoid additional wound formation. No local signs of infection are noted. He completed an oral antibiotic course I do not recommend refill at this time. To continue with right lower extremity surgical shoe. To continue with automated wheelchair. To continue to optimize healing with improved glycemic index, continued weight reduction, and well-balanced [employer] nutrients. To continue with edema management including his compression wraps and also lymphedema pumps. It is noted he has not been able to elevate as much this past week and has increased edema. Additional Mateus wrap was applied prior to Tubigrip application splint to help reduce stump edema. To reduce salt in diet; this was discussed. He has resumed Lasix and was advised to continue his advised by his primary care physician. To continue with showering routine. To resume applying Lac-Hydrin lotion. He completed course of advanced wound healing product application, epi fix. He was advised to return to clinic in two weeks. Note: Sana[employer]pert speech recognition driveway sealer software was used to create portions of this document. Sound-alike and misspelled words, as well as other driveway sealer errors may be contained in the documentation. 21 minutes was spent on this encounter. This included face to face and non face to face care including preparing for the visit, reviewing the history, performing the exam, counseling and providing education to the patient, family, or caregiver, ordering medications/test/ procedures if indicated as documented, communicating with other healthcare providers, documenting information in the medical record, interpreting / sharing this information when indicated as documented, and care coordination.
== END 2021-01-13 23:59 ==
LOC: WC 11:15
PROVIDERS: PCP Family Medicine; Visit Provider Podiatrist
DX: E11.621 Type 2 diabetes mellitus with foot ulcer (principal); L97.512 Non-pressure chronic ulcer of other part of right foot with fat layer exposed; L97.822 Non-pressure chronic ulcer of other part of left lower leg with fat layer exposed; Z89.512 Acquired absence of left leg below knee; I89.0 Lymphedema, not elsewhere classified; R60.0 Localized edema; L03.115 Cellulitis of right lower limb; B87.9 Myiasis, unspecified; E11.65 Type 2 diabetes mellitus with hyperglycemia
CPT/HCPCS: 11042; 11045

== ENCOUNTER 2021-01-30 11:15 | Outpatient (RCR) | payer MEDICARE, MEDICAID, SELFPAY ==
[2021-01-14 00:31] VITALS: BP 182/64; PULSE 73; RESP 20; TEMP 36.6
[2021-01-16 11:10] VITALS: BP 178/64; PULSE 75; RESP 22; TEMP 36.8
--- NOTE | 2021-01-16 12:11 | PN.PCM_ITS ---
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 He also has multiple right foot ulcers and a left leg ulcer, and has been performing dressing changes as advised. He denies fever, chill, nausea, vomiting, redness, or odor. He has now been getting a shower at least once a week. He denies injury to the right foot however he thinks he has a blister to the heel in which his nurse has been applying bag balm. He denies odor or redness. Progress of Wound: Stable New heel ulcer right foot Objective Data Objective Data Vital Signs: Vital Signs Temp Pulse Resp BP 98.2 F 75 22 H 178/64 H 01/16/21 11:10 01/16/21 11:10 01/16/21 11:10 01/16/21 11:10 Physical Exam Extremity Extremity Narrative: No calf tenderness Diminished pulses Muscle wasting noted Left below-knee amputation and right hallux amputation Compartments remain soft to palpate bilateral lower extremities Skin Skin Narrative: no purulence, no streaking, no odor, no infection. resolved green drainage. Only serosanguineous drainage noted. Full epithelialization tissue to dorsal right foot. no bogginess or fluctuance noted. Left leg stump site ulcer has granular and fibrous base also; unchanged. The adjacent skin is hairless and atrophic. There is no deep tissue exposure or infection or even granulation tissue seen. Reduced posterior right leg posterior aspect. Full epithelialization to right second toe. New right heel ulcer with granular base and peripheral skin peeling without infection necrosis or deep tissue exposure Neuro Neuro Narrative: lack of normal epicritic sensation via light touch is consistent with neuropathy status Debridement Note Debridement Note Wound debrided: Left leg, right leg, new right heel Wound Grade/Stage: All one Type of Debridement: Excisional debridement Anesthesia Used: 4% Lidocaine Solution Depth: in the subcutaneous layer Percentage of wound debrided: 100 Instrument Used: #15 blade Tissue Removed: fibrous, devitalized subcutaneous, biofilm, slough Severity: Fat Layer Exposed Amount of bleeding with debridement: Mild Bleeding Controlled with: Pressure Patient tolerated procedure: Patient tolerated procedure well Post-Debridement Measurements and Additional Note: Post-Debridement Measurements/Treatment WC - Nurse 1 - General Ulcer Assessment Start: 01/16/21 11:08 Freq: Status: Active Protocol: [email or web address] Activity Type Activity Date Activity User E-Sign Co-Sign Detail Recorded Client Recorded Date Recorded By Document 01/16/21 11:10 VIDA [id number] 01/16/21 11:24 DL 01/16/21 11:10 - Today's Visit Information Type of service Follow-up Visit (Physician/[employer] ) Arrival Mode Wheelchair Transfer Assistance None Patient Identification Verified (Name & Yes ) Patient Requires Transmission-Based No Precautions Finger Stick Blood Sugar(mg/dl) (if 176 indicated): Blood Sugar Stated by Patient Vital Signs Temperature (97.8 F-99.1 F) 98.2 F Temperature Source Temporal Pulse Rate (60-100) 75 Pulse Location Monitor Respiratory Rate (12-18) 22 H Respiratory rate source Observation Blood Pressure (90/60-120/80) 178/64 H Blood Pressure Mean (mm Hg) 102 Source Monitor History Since Last Visit- (Skip if this is Patient's initial visit) Have you changed medications since your No last visit? Any new allergies or adverse reactions No Had a fall/change in ADL's that may No increase risk of falls Signs or symptoms of abuse and/or No neglect since last visit Have you been in the hospital since your No last visit? Has dressing in place as prescribed Yes Has compression in place as prescribed Yes Has offloadiing in place as prescribed Yes Experienced any changes in pain level or No management Left Footwear No Footwear Right Footwear No Footwear Pain Scale: 0-10 Numeric Is Patient Pain Free? Yes - Nurse 1 - General Ulcer Measurement Start: 01/16/21 11:08 Freq: Status: Active Protocol: Activity Type Activity Date Activity User E-Sign Co-Sign Detail Recorded Client Recorded Date Recorded By Document 01/16/21 11:10 VIDA [id number] 01/16/21 11:24 DL 01/16/21 11:10 Wound Center Nurse 1 51. RLE post calf cluster -Current Size (cm) - Length 4.5 -Current Size (cm) - Width 3.7 -Current Size (cm) - Depth 0.1 -Total Square Cm 16.65 -Photo Taken No -Exudate Amt Medium -Exudate Type Serosanguineous -Wound Margin Distinct, Outline Attached -Granulation Amt Large (67-100%) -Granulation Quality Red -Necrosis Amt Small (1-33%) -Necrotic Tissue Type Adherent Slough -Structure Exposed N/A -Texture (Susy-wound Skin Appearance) Scarring -Moisture (Susy-wound Skin Appearance) Dry/Scaly -Color (Susy-wound Skin Appearance) Hemosiderin Staining -Temperature (Susy-wound Skin No Abnormality Appearance) (Pt Warm) -Tenderness on Palpation (Susy-wound No Skin Appearance) -Foul Odor after Cleansing No -Anesthetic Used 4% Lidocaine Solution #49 R Dorsal foot -Current Size (cm) - Length 12.5 -Current Size (cm) - Width 5 -Current Size (cm) - Depth 0.1 -Total Square Cm 62.5 -Photo Taken No -Exudate Amt Large -Exudate Type Yellow/Green -Wound Margin Indistinct, Non -Visible -Granulation Amt Large (67-100%) -Granulation Quality [place] -Necrosis Amt Medium (34-66%) -Necrotic Tissue Type Adherent Slough -Structure Exposed N/A -Texture (Susy-wound Skin Appearance) Localized Edema ,Scarring -Moisture (Susy-wound Skin Appearance) [place] -Color (Susy-wound Skin Appearance) Hemosiderin Staining -Temperature (Susy-wound Skin No Abnormality Appearance) (Pt Warm) -Tenderness on Palpation (Susy-wound No Skin Appearance) -Ulcer Cleansing Soap and Water -Foul Odor after Cleansing Yes -Anesthetic Used 4% Lidocaine Solution 46-right 2nd toe -Current Size (cm) - Length 4 -Current Size (cm) - Width 3.5 -Current Size (cm) - Depth 0.1 -Total Square Cm 14.0 -Photo Taken No -Exudate Amt Large -Exudate Type Yellow/Green -Wound Margin Indistinct, Non -Visible -Granulation Amt Medium (34-66%) -Granulation Quality [place] -Necrosis Amt Medium (34-66%) -Necrotic Tissue Type Adherent Slough -Structure Exposed N/A -Texture (Susy-wound Skin Appearance) Localized Edema ,Scarring -Moisture (Susy-wound Skin Appearance) [place] -Color (Susy-wound Skin Appearance) Hemosiderin Staining -Temperature (Susy-wound Skin No Abnormality Appearance) (Pt Warm) -Tenderness on Palpation (Susy-wound No Skin Appearance) -Ulcer Cleansing Soap and Water -Foul Odor after Cleansing Yes -Anesthetic Used 4% Lidocaine Solution #35 L Stump -Current Size (cm) - Length 1.7 -Current Size (cm) - Width 3.5 -Current Size (cm) - Depth 0.7 -Total Square Cm 5.95 -Photo Taken No -Exudate Amt Medium -Exudate Type Serosanguineous -Wound Margin Distinct, Outline Attached -Granulation Amt Medium (34-66%) -Granulation Quality Red -Necrosis Amt Medium (34-66%) -Necrotic Tissue Type Adherent Slough -Structure Exposed N/A -Texture (Susy-wound Skin Appearance) Scarring -Color (Susy-wound Skin Appearance) Hemosiderin Staining -Temperature (Susy-wound Skin No Abnormality Appearance) (Pt Warm) -Tenderness on Palpation (Susy-wound No Skin Appearance) -Ulcer Cleansing Soap and Water -Foul Odor after Cleansing No -Anesthetic Used 4% Lidocaine Solution - Nurse 3 - General Ulcer D/C NN Start: 01/16/21 11:08 Freq: Status: Active Protocol: Activity Type Activity Date Activity User E-Sign Co-Sign Detail Recorded Client Recorded Date Recorded By Document 01/16/21 12:07 [place] [id number] 01/16/21 12:09 [place] 01/16/21 12:07 Wound Care Nurse 3 51. RLE post calf cluster -Ulcer Cleansing Rinsed/ Irrigated with Saline -Other Dressing dakins -Primary Dressing Covered/Secured with Dry Gauze & Roll Gauze, Secured with Tape #49 R Dorsal foot -Ulcer Cleansing Rinsed/ Irrigated with Saline -Other Dressing Dakins -Primary Dressing Covered/Secured with Dry Gauze & Roll Gauze, Secured with Tape 46-right 2nd toe -Ulcer Cleansing Rinsed/ Irrigated with Saline -Other Dressing Dakins -Primary Dressing Covered/Secured with Dry Gauze, Secured with Tape - Visit Discharge Discharge Condition Stable Ambulatory Status Ambulatory Transportation Private Auto Medication Reconcilliation completed & No provided to patient/care provider Clinical Summary of Care Provided Yes Assessment/Plan Assessment/Plan (1) Ulcer of left lower extremity with fat layer exposed: CODE(S): L97.922 - Non-pressure chronic ulcer of unspecified part of left lower leg with fat layer exposed (2) Ulcer of right foot with fat layer exposed: CODE(S): L97.512 - Non-pressure chronic ulcer of other part of right foot with fat layer exposed (3) Delayed wound healing: CODE(S): T14.8XXD - Other injury of unspecified body region, subsequent encounter (4) Type 2 diabetes mellitus with diabetic polyneuropathy: CODE(S): E11.42 - Type 2 diabetes mellitus with diabetic polyneuropathy (5) Localized edema: CODE(S): R60.0 - Localized edema (6) Ulcer of right lower extremity with fat layer exposed: CODE(S): L97.912 - Non-pressure chronic ulcer of unspecified part of right lower leg with fat layer exposed (7) Maceration of skin: CODE(S): L98.8 - Other specified disorders of the skin and subcutaneous tissue (8) Lymphedema: CODE(S): I89.0 - Lymphedema, not elsewhere classified (9) Cellulitis of right lower limb: CODE(S): L03.115 - Cellulitis of right lower limb PLAN: I reviewed and discussed his case. His ulcer were debrided as noted. His new ulcers noted to the right heel. Right second toe ulcer has healed. He was reassured no local signs of infection are seen. Irregular drainage and odor have resolved. To change dressing daily with Dakin wet-to-dry gauze next week. To use super exertion dressing if possible and available. To wash the wound with antibacterial soap and water. To avoid applying foam to the forefoot for this is contributing to maceration. To discontinue all Adaptic use at this time. I encourage routine showering at least once a week if possible. This has been set up. No local signs of infection are noted. He completed an oral antibiotic course I do not recommend refill at this time. To continue with right lower extremity surgical shoe. To continue with automated wheelchair. To take care to avoid pressure to his right heel ulcer site. To continue to optimize healing with improved glycemic index, continued weight reduction, and well-balanced [employer] nutrients. To continue with edema management including his compression wraps and also lymphedema pumps. It is noted he has not been able to elevate as much this past week and has increased edema. Additional [place] wrap was applied prior to Tubigrip application splint to help reduce stump edema. To reduce salt in diet; this was discussed. He has resumed Lasix and was advised to continue his advised by his primary care physician. To continue with showering routine. To resume applying Lac-Hydrin lotion. He completed course of advanced wound healing product application, epi fix. He was advised to return to clinic in two weeks. Note: [place] speech recognition sheet metal insulator software was used to create portions of this document. Sound-alike and misspelled words, as well as other sheet metal insulator errors may be contained in the documentation. 22 minutes was spent on this encounter. This included face to face and non face to face care including preparing for the visit, reviewing the history, performing the exam, counseling and providing education to the patient, family, or caregiver, ordering medications/test/ procedures if indicated as documented, communicating with other healthcare providers, documenting information in the medical record, interpreting / sharing this information when indicated as documented, and care coordination.
[2021-01-30 11:21] VITALS: BP 174/53; PULSE 63; RESP 18; TEMP 36.6
--- NOTE | 2021-01-30 12:24 | PN.PCM_ITS ---
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 He also has multiple right foot ulcers and a left leg ulcer, and has been performing dressing changes as advised. He denies fever, chill, nausea, vomiting, redness, or odor. He has now been getting a shower at least twice a week. He denies odor or redness. Progress of Wound: Stable, left improving all, right Objective Data Objective Data Vital Signs: Vital Signs Temp Pulse Resp BP 97.9 F 63 18 174/53 H 01/30/21 11:21 01/30/21 11:21 01/30/21 11:21 01/30/21 11:21 Physical Exam Extremity Extremity Narrative: No calf tenderness Diminished pulses Muscle wasting noted Left below-knee amputation and right hallux amputation Compartments remain soft to palpate bilateral lower extremities Skin Skin Narrative: no purulence, no streaking, no odor, no infection. resolved green drainage. Only serosanguineous drainage noted. Full epithelialization tissue to dorsal right foot. no bogginess or fluctuance noted. Left leg stump site ulcer has granular and fibrous base also; unchanged. The adjacent skin is hairless and atrophic. There is no deep tissue exposure or infection or even granulation tissue seen. Reduced posterior right leg posterior aspect. Full epithelialization to right second toe. right heel ulcer with granular base and peripheral skin peeling without infection necrosis or deep tissue exposure; decreased size Neuro Neuro Narrative: lack of normal epicritic sensation via light touch is consistent with neuropathy status Debridement Note Debridement Note Wound debrided: left leg,right leg, right heel Wound Grade/Stage: 1 Type of Debridement: Excisional debridement Anesthesia Used: 4% Lidocaine Solution Depth: in the subcutaneous layer Percentage of wound debrided: 100 Instrument Used: #15 blade Tissue Removed: fibrous, devitalized subcutaneous, biofilm, slough Severity: Fat Layer Exposed Amount of bleeding with debridement: Mild Bleeding Controlled with: Pressure Patient tolerated procedure: Patient tolerated procedure well Post-Debridement Measurements and Additional Note: Post-Debridement Measurements/Treatment XIMENA - Nurse 1 - General Ulcer Assessment Start: 01/16/21 11:08 Freq: Status: Active Protocol: SUSAN Activity Type Activity Date Activity User E-Sign Co-Sign Detail Recorded Client Recorded Date Recorded By Document 01/16/21 11:10 DL [id number] 01/16/21 11:24 DL Document 01/30/21 11:21 RB [id number] 01/30/21 11:37 RB 01/16/21 01/30/21 11:10 11:21 - Today's Visit Information Type of service Follow-up Visit Follow-up Visit (Physician/CREATIVE GURU (Physician/CREATIVE GURU ) ) Arrival Mode Wheelchair Wheelchair Transfer Assistance None None Patient Identification Verified (Name & Yes Yes ) Patient Requires Transmission-Based No No Precautions Finger Stick Blood Sugar(mg/dl) (if 176 indicated): Blood Sugar Stated by Patient Vital Signs Temperature (97.8 F-99.1 F) 98.2 F 97.9 F Temperature Source Temporal Temporal Pulse Rate (60-100) 75 63 Pulse Location Monitor Monitor Respiratory Rate (12-18) 22 H 18 Respiratory rate source Observation Observation Blood Pressure (90/60-120/80) 178/64 H 174/53 H Blood Pressure Mean (mm Hg) 102 93 Source Monitor Monitor Position Semi-Fowlers Blood Pressure Location Left Arm History Since Last Visit- (Skip if this is Patient's initial visit) Have you changed medications since your No No last visit? Any new allergies or adverse reactions No No Had a fall/change in ADL's that may No No increase risk of falls Signs or symptoms of abuse and/or No No neglect since last visit Have you been in the hospital since your No No last visit? Has dressing in place as prescribed Yes Yes Has compression in place as prescribed Yes Yes Has offloadiing in place as prescribed Yes No Experienced any changes in pain level or No No management Left Footwear No Footwear Right Footwear No Footwear Pain Scale: 0-10 Numeric Is Patient Pain Free? Yes Yes - Nurse 1 - General Ulcer Measurement Start: 01/16/21 11:08 Freq: Status: Active Protocol: Activity Type Activity Date Activity User E-Sign Co-Sign Detail Recorded Client Recorded Date Recorded By Document 01/16/21 11:10 DL [id number] 01/16/21 11:24 DL Document 01/30/21 11:21 RB [id number] 01/30/21 11:37 RB 01/16/21 01/30/21 11:10 11:21 Wound Center Nurse 1 52. R heel -Combined with other wound No -Current Size (cm) - Length 2.4 -Current Size (cm) - Width 2.5 -Current Size (cm) - Depth 0.1 -Total Square Cm 6.00 -Tunneling No -Undermining/Tunneling No -Circular Undermining No -Exudate Amt Large -Exudate Type Serosanguineous -Wound Margin Flat & Intact -Granulation Amt Medium (34-66%) -Granulation Quality [employer],Red -Slough/Fibrin Yes -Necrosis Amt Small (1-33%) -Necrotic Tissue Type Adherent Slough -Structure Exposed N/A -Texture (Susy-wound Skin Appearance) Assessed,Callus -Moisture (Susy-wound Skin Appearance) Assessed -Color (Susy-wound Skin Appearance) Assessed -Temperature (Susy-wound Skin No Abnormality Appearance) (Pt Warm) -Tenderness on Palpation (Susy-wound No Skin Appearance) -Ulcer Cleansing Wound Cleanser -Foul Odor after Cleansing No -Anesthetic Used 4% Lidocaine Solution 51. RLE post calf cluster -Combined with other wound No -Current Size (cm) - Length 4.5 0.1 -Current Size (cm) - Width 3.7 0.1 -Current Size (cm) - Depth 0.1 0.1 -Total Square Cm 16.65 0.01 -Photo Taken No -Tunneling No -Undermining/Tunneling No -Circular Undermining No -Exudate Amt Medium Large -Exudate Type Serosanguineous Serosanguineous -Wound Margin Distinct, Flat & Intact Outline Attached -Granulation Amt Large (67-100%) Large (67-100%) -Granulation Quality [employer] -Slough/Fibrin Yes -Necrosis Amt Small (1-33%) Small (1-33%) -Necrotic Tissue Type Adherent Slough Adherent Slough -Structure Exposed N/A N/A -Texture (Susy-wound Skin Appearance) Scarring Assessed -Moisture (Susy-wound Skin Appearance) Dry/Scaly Assessed, Maceration -Color (Susy-wound Skin Appearance) Hemosiderin Assessed Staining -Temperature (Susy-wound Skin No Abnormality No Abnormality Appearance) (Pt Warm) (Pt Warm) -Tenderness on Palpation (Susy-wound No No Skin Appearance) -Ulcer Cleansing Wound Cleanser -Foul Odor after Cleansing No No -Anesthetic Used 4% Lidocaine 4% Lidocaine Solution Solution #49 R Dorsal foot -Combined with other wound No -Current Size (cm) - Length 12.5 0.1 -Current Size (cm) - Width 5 0.1 -Current Size (cm) - Depth 0.1 0.1 -Total Square Cm 62.5 0.01 -Photo Taken No -Tunneling No -Undermining/Tunneling No -Circular Undermining No -Exudate Amt Large Large -Exudate Type Yellow/Green Serosanguineous -Wound Margin Indistinct, Non Flat & Intact -Visible -Granulation Amt Large (67-100%) Medium (34-66%) -Granulation Quality [employer] -Slough/Fibrin Yes -Necrosis Amt Medium (34-66%) Small (1-33%) -Necrotic Tissue Type Adherent Slough Adherent Slough -Structure Exposed N/A N/A -Texture (Susy-wound Skin Appearance) Localized Edema Assessed ,Scarring -Moisture (Susy-wound Skin Appearance) Weeping Maceration -Color (Susy-wound Skin Appearance) Hemosiderin Assessed Staining -Temperature (Susy-wound Skin No Abnormality No Abnormality Appearance) (Pt Warm) (Pt Warm) -Tenderness on Palpation (Susy-wound No No Skin Appearance) -Ulcer Cleansing Soap and Water Wound Cleanser -Foul Odor after Cleansing Yes No -Anesthetic Used 4% Lidocaine 4% Lidocaine Solution Solution 46-right 2nd toe -Combined with other wound No -Current Size (cm) - Length 4 0.1 -Current Size (cm) - Width 3.5 6.9 -Current Size (cm) - Depth 0.1 1 -Total Square Cm 14.0 0.69 -Photo Taken No -Tunneling No -Undermining/Tunneling No -Circular Undermining No -Exudate Amt Large Large -Exudate Type Yellow/Green Serosanguineous -Wound Margin Indistinct, Non Flat & Intact -Visible -Granulation Amt Medium (34-66%) Medium (34-66%) -Granulation Quality [employer] -Slough/Fibrin Yes -Necrosis Amt Medium (34-66%) Small (1-33%) -Necrotic Tissue Type Adherent Slough Adherent Slough -Structure Exposed N/A N/A -Texture (Susy-wound Skin Appearance) Localized Edema Assessed ,Scarring -Moisture (Susy-wound Skin Appearance) Weeping Maceration -Color (Susy-wound Skin Appearance) Hemosiderin Assessed Staining -Temperature (Susy-wound Skin No Abnormality No Abnormality Appearance) (Pt Warm) (Pt Warm) -Tenderness on Palpation (Susy-wound No No Skin Appearance) -Ulcer Cleansing Soap and Water Wound Cleanser -Foul Odor after Cleansing Yes No -Anesthetic Used 4% Lidocaine Solution #35 L Stump -Combined with other wound No -Current Size (cm) - Length 1.7 1 -Current Size (cm) - Width 3.5 2.2 -Current Size (cm) - Depth 0.7 0.4 -Total Square Cm 5.95 2.2 -Photo Taken No -Tunneling No -Undermining/Tunneling No -Circular Undermining No -Exudate Amt Medium Large -Exudate Type Serosanguineous Serosanguineous -Wound Margin Distinct, Flat & Intact Outline Attached -Granulation Amt Medium (34-66%) Medium (34-66%) -Granulation Quality [employer] -Slough/Fibrin Yes -Necrosis Amt Medium (34-66%) Small (1-33%) -Necrotic Tissue Type Adherent Slough -Structure Exposed N/A N/A -Texture (Susy-wound Skin Appearance) Scarring Assessed -Moisture (Susy-wound Skin Appearance) No Abnormality, Maceration -Color (Susy-wound Skin Appearance) Hemosiderin Assessed Staining -Temperature (Susy-wound Skin No Abnormality No Abnormality Appearance) (Pt Warm) (Pt Warm) -Tenderness on Palpation (Susy-wound No No Skin Appearance) -Ulcer Cleansing Soap and Water Wound Cleanser -Foul Odor after Cleansing No No -Anesthetic Used 4% Lidocaine 4% Lidocaine Solution Solution Lower Limb Edema Present Yes Right Calf (cm) 51.4 Right Ankle (cm) 30.7 WC - Nurse 2 - General Ulcer CM Notes Start: 01/16/21 11:08 Freq: Status: Active Protocol: Activity Type Activity Date Activity User E-Sign Co-Sign Detail Recorded Client Recorded Date Recorded By Document 01/16/21 12:21 NORRIS [id number] 01/16/21 13:14 NORRIS Document 01/30/21 11:38 NORRIS [id number] 01/30/21 11:45 NORRIS 01/16/21 01/30/21 12:21 11:38 Wound Center Nurse 2 52. R heel -Time 11:40 -Correct Patient Yes -Correct Side, Site, Position Yes -Correct Procedure Yes -Procedure Performed Yes -Type of Procedure Debridement -Clinical Debridement Subcutaneous -Tissue Removed Subcutaneous -Post Debridement (cm) - Length 2.5 -Post Debridement (cm) - Width 2.5 -Post Debridement (cm) - Depth 0.1 -Total Square (Post) (cm) 6.25 -Area of Debridement (cm) - Length 2.5 -Area of Debridement (cm) - Width 2.5 -Total Square (Area) (cm) 6.25 -Tunneling No -Undermining/Tunneling No -Circular Undermining No -Wound/Ulcer Outcome Not Healed -Ulcer Cleansing Rinsed/ Irrigated with Saline -Foul Odor after Cleansing No -Bioengineered Tissue No -Bleeding Controlled with Pressure -Offloading No -Treatment Response Procedure Tolerated Well -Debridement - Subq, 1st 20sq cm No 51. RLE post calf cluster -Time 13:08 11:42 -Correct Patient Yes Yes -Correct Side, Site, Position Yes Yes -Correct Procedure Yes Yes -Procedure Performed Yes Yes -Type of Procedure Debridement Debridement -Clinical Debridement Subcutaneous Subcutaneous -Tissue Removed Subcutaneous Subcutaneous -Post Debridement (cm) - Length 4.5 0.2 -Post Debridement (cm) - Width 3.8 0.2 -Post Debridement (cm) - Depth 0.1 0.1 -Total Square (Post) (cm) 17.10 0.04 -Area of Debridement (cm) - Length 4.5 0.2 -Area of Debridement (cm) - Width 3.8 0.2 -Total Square (Area) (cm) 17.10 0.04 -Tunneling No No -Undermining/Tunneling No No -Circular Undermining No No -Wound/Ulcer Outcome Not Healed Not Healed -Ulcer Cleansing Rinsed/ Rinsed/ Irrigated with Irrigated with Saline Saline -Foul Odor after Cleansing No No -Bioengineered Tissue No No -Bleeding Controlled with Pressure Pressure -Offloading No No -Treatment Response Procedure Procedure Tolerated Well Tolerated Well -Debridement - Subq, 1st 20sq cm Yes No #49 R Dorsal foot -Time 13:09 11:43 -Correct Patient No No -Correct Side, Site, Position No No -Correct Procedure No No -Procedure Performed No No -Wound/Ulcer Outcome Not Healed 46-right 2nd toe -Time 13:10 11:43 -Correct Patient Yes Yes -Correct Side, Site, Position Yes Yes -Correct Procedure Yes Yes -Procedure Performed Yes Yes -Type of Procedure Debridement Debridement -Clinical Debridement Subcutaneous Subcutaneous -Tissue Removed Subcutaneous Subcutaneous -Post Debridement (cm) - Length 0.1 0.2 -Post Debridement (cm) - Width 0.1 6.9 -Post Debridement (cm) - Depth 0.1 0.1 -Total Square (Post) (cm) 0.01 1.38 -Area of Debridement (cm) - Length 0.1 0.2 -Area of Debridement (cm) - Width 0.1 6.9 -Total Square (Area) (cm) 0.01 1.38 -Tunneling No No -Undermining/Tunneling No No -Circular Undermining No No -Wound/Ulcer Outcome Not Healed Not Healed -Ulcer Cleansing Rinsed/ Rinsed/ Irrigated with Irrigated with Saline Saline -Foul Odor after Cleansing No No -Bioengineered Tissue No No -Bleeding Controlled with Pressure Pressure -Offloading No Yes -Type of Offloading Surgical Shoe -Treatment Response Procedure Procedure Tolerated Well Tolerated Well -Debridement - Subq, 1st 20sq cm No Yes #35 L Stump -Time 13:13 11:44 -Correct Patient Yes Yes -Correct Side, Site, Position Yes Yes -Correct Procedure Yes Yes -Procedure Performed Yes Yes -Type of Procedure Debridement Debridement -Clinical Debridement Epidermis / Subcutaneous Dermis -Tissue Removed Epidermis, Subcutaneous Dermis -Post Debridement (cm) - Length 1.8 1.1 -Post Debridement (cm) - Width 3.5 2.3 -Post Debridement (cm) - Depth 0.6 0.4 -Total Square (Post) (cm) 6.30 2.53 -Area of Debridement (cm) - Length 1.8 1.1 -Area of Debridement (cm) - Width 3.5 2.3 -Total Square (Area) (cm) 6.30 2.53 -Tunneling No No -Undermining/Tunneling No No -Circular Undermining No No -Wound/Ulcer Outcome Not Healed Not Healed -Ulcer Cleansing Rinsed/ Rinsed/ Irrigated with Irrigated with Saline Saline -Foul Odor after Cleansing No No -Bioengineered Tissue No No -Bleeding Controlled with Pressure Pressure -Offloading No No -Treatment Response Procedure Procedure Tolerated Well Tolerated Well -Debridement - Open, 1st 20sq cm Yes -Debridement - Subq, 1st 20sq cm No Pain Scale: 0-10 Numeric Is Patient Pain Free? Yes Yes - Nurse 3 - General Ulcer D/C NN Start: 01/16/21 11:08 Freq: Status: Active Protocol: Activity Type Activity Date Activity User E-Sign Co-Sign Detail Recorded Client Recorded Date Recorded By Document 01/16/21 12:07 MN [id number] 01/16/21 12:09 MT Document 01/30/21 11:52 RB [id number] 01/30/21 11:54 RB 01/16/21 01/30/21 12:07 11:52 Wound Care Nurse 3 52. R heel -Other Dressing moistened dakins gauze to all ulcers -Primary Dressing Covered/Secured with Dry Gauze,Dry Gauze & Roll Gauze,Secured with Tape 51. RLE post calf cluster -Ulcer Cleansing Rinsed/ Irrigated with Saline -Other Dressing dakins dakins -Primary Dressing Covered/Secured with Dry Gauze & Dry Gauze,Dry Roll Gauze, Gauze & Roll Secured with Gauze,Secured Tape with Tape #49 R Dorsal foot -Ulcer Cleansing Rinsed/ Irrigated with Saline -Other Dressing Dakins dakins -Primary Dressing Covered/Secured with Dry Gauze & Dry Gauze,Dry Roll Gauze, Gauze & Roll Secured with Gauze,Secured Tape with Tape 46-right 2nd toe -Ulcer Cleansing Rinsed/ Irrigated with Saline -Other Dressing Dakins dakijns -Primary Dressing Covered/Secured with Dry Gauze, Dry Gauze, Secured with Secured with Tape Tape #35 L Stump -Other Dressing dakins -Primary Dressing Covered/Secured with Dry Gauze,Dry Gauze & Roll Gauze,Secured with Tape Right -Other circaid Left -Other tubigrip Treatment Response Procedure Tolerated Well Pain Scale: 0-10 Numeric Is Patient Pain Free? Yes - Visit Discharge Discharge Condition Stable Stable Ambulatory Status Ambulatory Wheelchair Transportation Private Auto Private Auto Medication Reconcilliation completed & No No provided to patient/care provider Clinical Summary of Care Provided Yes Yes Assessment/Plan Assessment/Plan (1) Ulcer of left lower extremity with fat layer exposed: CODE(S): L97.922 - Non-pressure chronic ulcer of unspecified part of left lower leg with fat layer exposed (2) Ulcer of right foot with fat layer exposed: CODE(S): L97.512 - Non-pressure chronic ulcer of other part of right foot with fat layer exposed (3) Delayed wound healing: CODE(S): T14.8XXD - Other injury of unspecified body region, subsequent encounter (4) Type 2 diabetes mellitus with diabetic polyneuropathy: CODE(S): E11.42 - Type 2 diabetes mellitus with diabetic polyneuropathy (5) Localized edema: CODE(S): R60.0 - Localized edema (6) Ulcer of right lower extremity with fat layer exposed: CODE(S): L97.912 - Non-pressure chronic ulcer of unspecified part of right lower leg with fat layer exposed (7) Maceration of skin: CODE(S): L98.8 - Other specified disorders of the skin and subcutaneous tissue (8) Lymphedema: CODE(S): I89.0 - Lymphedema, not elsewhere classified (9) Cellulitis of right lower limb: CODE(S): L03.115 - Cellulitis of right lower limb PLAN: I reviewed and discussed his case. His ulcer were debrided as noted. He was reassured no local signs of infection are seen. Irregular drainage and odor have resolved. To change dressing daily with Dakin wet-to-dry gauze next week. To use super exertion dressing if possible and available. To wash the wound with antibacterial soap and water. To avoid applying foam to the forefoot for this is contributing to maceration. To discontinue all Adaptic use at this time. I encourage routine showering at least once a week if possible. This has been set up. No local signs of infection are noted. He completed an oral antibiotic course I do not recommend refill at this time. To continue with right lower extremity surgical shoe. To continue with automated wheelchair. To take care to avoid pressure to his right heel ulcer site. To continue to optimize healing with improved glycemic index, continued weight reduction, and well-balanced [employer] nutrients. To continue with edema management including his compression wraps and also lymphedema pumps. It is noted he has not been able to elevate as much this past week and has increased edema. Additional Mateus wrap was applied prior to Tubigrip application splint to help reduce stump edema. To reduce salt in diet; this was discussed. He has resumed Lasix and was advised to continue his advised by his primary care physician. To continue with showering routine. To resume applying Lac-Hydrin lotion. Refill will be sent to [facility] in [place] with refills. He completed course of advanced wound healing product application, epi fix. He was advised to return to clinic in two weeks. Note: [employer] speech recognition bicycle inspector software was used to create portions of this document. Sound-alike and misspelled words, as well as other bicycle inspector errors may be contained in the documentation.
== END 2021-02-12 23:59 ==
LOC: WC 11:15
PROVIDERS: PCP Family Medicine; Visit Provider Podiatrist
DX: E11.621 Type 2 diabetes mellitus with foot ulcer (principal); L97.822 Non-pressure chronic ulcer of other part of left lower leg with fat layer exposed; Z89.512 Acquired absence of left leg below knee; L97.412 Non-pressure chronic ulcer of right heel and midfoot with fat layer exposed; E11.622 Type 2 diabetes mellitus with other skin ulcer; Z89.421 Acquired absence of other right toe(s); I89.0 Lymphedema, not elsewhere classified; L03.115 Cellulitis of right lower limb
CPT/HCPCS: 11042; 97597

== ENCOUNTER 2021-02-27 11:15 | Outpatient (RCR) | payer MEDICARE, MEDICAID, SELFPAY ==
[2021-02-13 00:33] VITALS: BP 174/53; PULSE 63; RESP 18; TEMP 36.6
[2021-02-13 11:22] VITALS: BP 168/43; PULSE 59; RESP 16; TEMP 36.1
--- NOTE | 2021-02-13 11:58 | PCM.WC.PN ---
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 He also has multiple right foot ulcers and a left leg ulcer, and has been performing dressing changes as advised. He denies fever, chill, nausea, vomiting, redness, or odor. He continues to take showers. He denies odor or redness. He thinks his right leg wound is healed and denies drainage. He denies new injuries odors or green drainage. Progress of Wound: Healed right leg Healed right foot Improving right heel Stable left leg Objective Data Objective Data Vital Signs: Vital Signs Temp Pulse Resp BP 96.9 F L 59 L 16 168/43 H 02/13/21 11:22 02/13/21 11:22 02/13/21 11:22 02/13/21 11:22 Oxygen Delivery Method Room Air Physical Exam Extremity Extremity Narrative: No calf tenderness Diminished pulses Muscle wasting noted Left below-knee amputation and right hallux amputation Compartments remain soft to palpate bilateral lower extremities Skin Skin Narrative: no purulence, no streaking, no odor, no infection. No green drainage noted. Only serosanguineous drainage noted. Full epithelialization tissue to dorsal right foot, second toe, right posterior leg. no bogginess or fluctuance noted. Left leg stump site ulcer has granular and fibrous base also; unchanged. The adjacent skin is hairless and atrophic. There is no deep tissue exposure or infection or even granulation tissue seen. right heel ulcer with granular base and peripheral skin peeling without infection necrosis or deep tissue exposure; decreased size. Maceration interdigital noted but decreased compared to last visit Neuro Neuro Narrative: lack of normal epicritic sensation via light touch is consistent with neuropathy status Debridement Note Debridement Note Wound debrided: Right heel, left leg Wound Grade/Stage: 1 Type of Debridement: Excisional debridement Anesthesia Used: 4% Lidocaine Solution Depth: in the subcutaneous layer Percentage of wound debrided: 100 Instrument Used: #15 blade Tissue Removed: fibrous, devitalized subcutaneous, biofilm, slough Severity: Fat Layer Exposed Amount of bleeding with debridement: Mild Bleeding Controlled with: Pressure Patient tolerated procedure: Patient tolerated procedure well Post-Debridement Measurements and Additional Note: Post-Debridement Measurements/Treatment WC - Nurse 1 - General Ulcer Assessment Start: 02/13/21 11:22 Freq: Status: Active Protocol: SUSAN Activity Type Activity Date Activity User E-Sign Co-Sign Detail Recorded Client Recorded Date Recorded By Document 02/13/21 11:22 [facility] [id number] 02/13/21 11:32 [facility] 02/13/21 11:22 - Today's Visit Information Type of service Follow-up Visit (Physician/ASSESSMENT NURSE PRACTITIONER ) Arrival Mode Wheelchair Transfer Assistance Stretcher Patient Identification Verified (Name & Yes ) Patient Requires Transmission-Based No Precautions Finger Stick Blood Sugar(mg/dl) (if 111 indicated): Blood Sugar Stated by Patient Vital Signs Temperature (97.8 F-99.1 F) 96.9 F L Temperature Source Temporal Pulse Rate (60-100) 59 L Pulse Location Monitor Respiratory Rate (12-18) 16 Respiratory rate source Observation Oxygen Delivery Method Room Air Blood Pressure (90/60-120/80) 168/43 H Blood Pressure Mean (mm Hg) 84 Source Monitor Position Sitting Blood Pressure Location Left Forearm History Since Last Visit- (Skip if this is Patient's initial visit) Have you changed medications since your No last visit? Any new allergies or adverse reactions No Had a fall/change in ADL's that may No increase risk of falls Signs or symptoms of abuse and/or No neglect since last visit Have you been in the hospital since your No last visit? Has dressing in place as prescribed Yes Has compression in place as prescribed Yes Has offloadiing in place as prescribed N/A Experienced any changes in pain level or No management Right Footwear Surgical Shoe with pressure relief insole Pain Scale: 0-10 Numeric Is Patient Pain Free? Yes - Nurse 1 - General Ulcer Measurement Start: 02/13/21 11:22 Freq: Status: Active Protocol: Activity Type Activity Date Activity User E-Sign Co-Sign Detail Recorded Client Recorded Date Recorded By Document 02/13/21 11:22 [facility] [id number] 02/13/21 11:32 [facility] 02/13/21 11:22 Wound Center Nurse 1 52. R heel -Combined with other wound No -Current Size (cm) - Length 2.5 -Current Size (cm) - Width 1.5 -Current Size (cm) - Depth 0.1 -Total Square Cm 3.75 -Photo Taken No -Epithelialization Small 1-33% -Tunneling No -Undermining/Tunneling No -Circular Undermining No -Exudate Amt Medium -Exudate Type Serosanguineous -Wound Margin Flat & Intact -Granulation Amt Large (67-100%) -Granulation Quality Red -Slough/Fibrin Yes -Necrosis Amt Small (1-33%) -Necrotic Tissue Type Adherent Slough -Texture (Susy-wound Skin Appearance) Assessed, Scarring -Moisture (Susy-wound Skin Appearance) Assessed, Maceration,Dry/ Scaly -Color (Susy-wound Skin Appearance) Assessed -Temperature (Susy-wound Skin No Abnormality Appearance) (Pt Warm) -Tenderness on Palpation (Susy-wound No Skin Appearance) -Ulcer Cleansing Soap and Water -Foul Odor after Cleansing No -Anesthetic Used 4% Lidocaine Solution 51. RLE post calf cluster -Combined with other wound No -Current Size (cm) - Length 0 -Current Size (cm) - Width 0 -Current Size (cm) - Depth 0 -Total Square Cm 0 -Photo Taken No -Epithelialization Large 67-100% #49 R Dorsal foot -Combined with other wound No -Current Size (cm) - Length 1.5 -Current Size (cm) - Width 7 -Current Size (cm) - Depth 0.1 -Total Square Cm 10.5 -Photo Taken No -Epithelialization Small 1-33% -Tunneling No -Undermining/Tunneling No -Circular Undermining No -Exudate Amt Medium -Exudate Type Serosanguineous -Wound Margin Flat & Intact -Granulation Amt Medium (34-66%) -Granulation Quality [place] -Slough/Fibrin Yes -Necrosis Amt Medium (34-66%) -Necrotic Tissue Type Adherent Slough -Texture (Susy-wound Skin Appearance) Assessed, Scarring -Moisture (Susy-wound Skin Appearance) Assessed, Maceration -Color (Susy-wound Skin Appearance) Assessed,Palor -Temperature (Susy-wound Skin No Abnormality Appearance) (Pt Warm) -Tenderness on Palpation (Susy-wound No Skin Appearance) -Ulcer Cleansing Soap and Water -Foul Odor after Cleansing No -Anesthetic Used 4% Lidocaine Solution 46-right 2nd toe -Combined with other wound No -Current Size (cm) - Length 1.5 -Current Size (cm) - Width 2 -Current Size (cm) - Depth 0.1 -Total Square Cm 3.0 -Photo Taken No -Epithelialization Small 1-33% -Tunneling No -Undermining/Tunneling No -Circular Undermining No -Exudate Amt Medium -Exudate Type Serosanguineous -Wound Margin Distinct, Outline Attached -Granulation Amt Medium (34-66%) -Granulation Quality [place] -Slough/Fibrin Yes -Necrosis Amt Medium (34-66%) -Necrotic Tissue Type Adherent Slough -Texture (Susy-wound Skin Appearance) Assessed, Scarring -Moisture (Susy-wound Skin Appearance) Assessed, Maceration -Color (Susy-wound Skin Appearance) Assessed -Temperature (Susy-wound Skin No Abnormality Appearance) (Pt Warm) -Tenderness on Palpation (Susy-wound No Skin Appearance) -Ulcer Cleansing Soap and Water -Foul Odor after Cleansing No -Anesthetic Used 4% Lidocaine Solution #35 L Stump -Combined with other wound No -Current Size (cm) - Length 1.3 -Current Size (cm) - Width 2.2 -Current Size (cm) - Depth 0.6 -Total Square Cm 2.86 -Photo Taken No -Epithelialization None Present -Tunneling No -Undermining/Tunneling No -Circular Undermining No -Exudate Amt Small -Exudate Type Serosanguineous -Wound Margin Distinct, Outline Attached -Granulation Amt Large (67-100%) -Granulation Quality [place] -Slough/Fibrin Yes -Necrosis Amt Medium (34-66%) -Necrotic Tissue Type Adherent Slough -Texture (Susy-wound Skin Appearance) Assessed,Callus ,Fluctuance -Moisture (Susy-wound Skin Appearance) Assessed -Color (Susy-wound Skin Appearance) Assessed -Temperature (Susy-wound Skin No Abnormality Appearance) (Pt Warm) -Tenderness on Palpation (Susy-wound No Skin Appearance) -Ulcer Cleansing Soap and Water -Foul Odor after Cleansing No -Anesthetic Used 4% Lidocaine Solution Lower Limb Edema Present Yes Right Calf (cm) 47 Right Ankle (cm) 29.5 WC - Nurse 2 - General Ulcer CM Notes Start: 02/13/21 11:22 Freq: Status: Active Protocol: Activity Type Activity Date Activity User E-Sign Co-Sign Detail Recorded Client Recorded Date Recorded By Document 02/13/21 11:48 [facility] [id number] 02/13/21 11:54 [facility] 02/13/21 11:48 Wound Center Nurse 2 52. R heel -Time 11:54 -Correct Patient Yes -Correct Side, Site, Position Yes -Correct Procedure Yes -Procedure Performed Yes -Type of Procedure Debridement -Clinical Debridement Subcutaneous -Tissue Removed Subcutaneous -Post Debridement (cm) - Length 2.6 -Post Debridement (cm) - Width 1.5 -Post Debridement (cm) - Depth 0.1 -Total Square (Post) (cm) 3.90 -Area of Debridement (cm) - Length 2.6 -Area of Debridement (cm) - Width 1.5 -Total Square (Area) (cm) 3.90 -Tunneling No -Undermining/Tunneling No -Circular Undermining No -Wound/Ulcer Outcome Amputation -Ulcer Cleansing Rinsed/ Irrigated with Saline -Foul Odor after Cleansing No -Bioengineered Tissue No -Bleeding Controlled with Pressure -Offloading No -Treatment Response Procedure Tolerated Well -Debridement - Subq, 1st 20sq cm No 51. RLE post calf cluster -Correct Patient No -Correct Side, Site, Position No -Correct Procedure No -Procedure Performed No -Tissue Removed Dermis -Post Debridement (cm) - Length 0 -Post Debridement (cm) - Width 0 -Post Debridement (cm) - Depth 0 -Total Square (Post) (cm) 0 -Area of Debridement (cm) - Length 0 -Area of Debridement (cm) - Width 0 -Total Square (Area) (cm) 0 -Wound/Ulcer Outcome Healed- Epithelialized #49 R Dorsal foot -Correct Patient No -Correct Side, Site, Position No -Correct Procedure No -Procedure Performed No -Post Debridement (cm) - Length 0 -Post Debridement (cm) - Width 0 -Post Debridement (cm) - Depth 0 -Total Square (Post) (cm) 0 -Area of Debridement (cm) - Length 0 -Area of Debridement (cm) - Width 0 -Total Square (Area) (cm) 0 -Wound/Ulcer Outcome Healed- Epithelialized 46-right 2nd toe -Correct Patient No -Correct Side, Site, Position No -Correct Procedure No -Procedure Performed No -Post Debridement (cm) - Length 0 -Post Debridement (cm) - Width 0 -Post Debridement (cm) - Depth 0 -Total Square (Post) (cm) 0 -Area of Debridement (cm) - Length 0 -Area of Debridement (cm) - Width 0 -Total Square (Area) (cm) 0 -Wound/Ulcer Outcome Healed- Epithelialized #35 L Stump -Time 11:53 -Correct Patient Yes -Correct Side, Site, Position Yes -Correct Procedure Yes -Procedure Performed Yes -Type of Procedure Debridement -Clinical Debridement Subcutaneous -Tissue Removed Subcutaneous -Post Debridement (cm) - Length 1.3 -Post Debridement (cm) - Width 2.3 -Post Debridement (cm) - Depth 0.6 -Total Square (Post) (cm) 2.99 -Area of Debridement (cm) - Length 1.3 -Area of Debridement (cm) - Width 2.3 -Total Square (Area) (cm) 2.99 -Tunneling No -Undermining/Tunneling No -Circular Undermining No -Wound/Ulcer Outcome Not Healed -Ulcer Cleansing Rinsed/ Irrigated with Saline -Foul Odor after Cleansing No -Bioengineered Tissue No -Bleeding Controlled with Pressure -Offloading No -Treatment Response Procedure Tolerated Well -Debridement - Subq, 1st 20sq cm Yes Pain Scale: 0-10 Numeric Is Patient Pain Free? Yes Assessment/Plan Assessment/Plan (1) Ulcer of left lower extremity with fat layer exposed: CODE(S): L97.922 - Non-pressure chronic ulcer of unspecified part of left lower leg with fat layer exposed (2) Ulcer of right foot with fat layer exposed: CODE(S): L97.512 - Non-pressure chronic ulcer of other part of right foot with fat layer exposed (3) Delayed wound healing: CODE(S): T14.8XXD - Other injury of unspecified body region, subsequent encounter (4) Type 2 diabetes mellitus with diabetic polyneuropathy: CODE(S): E11.42 - Type 2 diabetes mellitus with diabetic polyneuropathy (5) Localized edema: CODE(S): R60.0 - Localized edema (6) Ulcer of right lower extremity with fat layer exposed: CODE(S): L97.912 - Non-pressure chronic ulcer of unspecified part of right lower leg with fat layer exposed (7) Maceration of skin: CODE(S): L98.8 - Other specified disorders of the skin and subcutaneous tissue (8) Lymphedema: CODE(S): I89.0 - Lymphedema, not elsewhere classified (9) Cellulitis of right lower limb: CODE(S): L03.115 - Cellulitis of right lower limb PLAN: I reviewed and discussed his case. His ulcer were debrided as noted. He was reassured no local signs of infection are seen. To change dressing daily with Dakin wet-to-dry gauze next week to the left leg and right heel. To apply dry gauze interdigitally to the right foot. To use super absorption dressing if possible and available. To wash the wound with antibacterial soap and water. . I encourage routine showering at least once a week if possible. No local signs of infection are noted. He completed an oral antibiotic course I do not recommend refill at this time. To continue with right lower extremity surgical shoe. To continue with automated wheelchair. To take care to avoid pressure to his right heel ulcer site. To continue to optimize healing with improved glycemic index, continued weight reduction, and well-balanced [employer] nutrients. To continue with edema management including his compression wraps and also lymphedema pumps. It is noted he has not been able to elevate as much this past week and has increased edema. Additional Mateus wrap was applied prior to Tubigrip application splint to help reduce stump edema. He was specifically advised apply the [place]us wrap to the forefoot to address his lymphedema at this level which is an ongoing issue. To reduce salt in diet; this was discussed. He has resumed Lasix and was advised to continue his advised by his primary care physician. To continue Lac-Hydrin application to dry skin on legs. He completed course of advanced wound healing product application, epi fix. He was advised to return to clinic in two weeks. Note: [employer] speech recognition all terrain vehicle technician software was used to create portions of this document. Sound-alike and misspelled words, as well as other all terrain vehicle technician errors may be contained in the documentation. The medical decision making level is low. There is noted low risk of morbidity after considering this treatment plan and diagnostic data. The problems addressed require a low medical decision making level which includes two or more minor problems, a stable chronic illness, or an acute uncomplicated illness or injury.
[2021-02-27 11:32] VITALS: BP 189/65; PULSE 61; RESP 18; TEMP 36.8
--- NOTE | 2021-02-27 13:07 | PCM.WC.PN ---
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 He also has multiple right foot ulcers and a left leg ulcer, and has been performing dressing changes as advised. He denies fever, chill, nausea, vomiting, redness, or odor. He continues to take showers. He denies odor or redness. He denies new injuries odors or green drainage. He reports he has a new opening or crack on the bottom of his right heel. 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 No green drainage noted. Only serosanguineous drainage noted. Full epithelialization tissue to dorsal right foot, second toe, right posterior leg. no bogginess or fluctuance noted. Left leg stump site ulcer has granular and fibrous base also; unchanged. The adjacent skin is hairless and atrophic. There is no deep tissue exposure or infection or even granulation tissue seen. right heel ulcer with granular base and peripheral skin peeling without infection necrosis or deep tissue exposure; decreased size. Maceration resolved. New ulcer to plantar right heel with granular base and peripheral skin peeling. No deep tissue exposure or infection Neuro Neuro Narrative: lack of normal epicritic sensation via light touch is consistent with neuropathy status Debridement Note Debridement Note Wound debrided: right heel (posterior, plantar), left leg stump site Wound Grade/Stage: 1 Type of Debridement: Excisional debridement Anesthesia Used: 4% Lidocaine Solution Depth: in the subcutaneous layer Percentage of wound debrided: 100 Instrument Used: #15 blade Tissue Removed: fibrous, devitalized subcutaneous, biofilm, slough Severity: Fat Layer Exposed Amount of bleeding with debridement: Mild Bleeding Controlled with: Pressure Patient tolerated procedure: Patient tolerated procedure well Post-Debridement Measurements and Additional Note: Post-Debridement Measurements/Treatment XIMENA - Nurse 1 - General Ulcer Assessment Start: 02/13/21 11:22 Freq: Status: Active Protocol: SUSAN Activity Type Activity Date Activity User E-Sign Co-Sign Detail Recorded Client Recorded Date Recorded By Document 02/13/21 11:22 BM [id number] 02/13/21 11:32 BMF Document 02/27/21 11:32 RB [id number] 02/27/21 11:46 RB 02/13/21 02/27/21 11:22 11:32 WC - Today's Visit Information Type of service Follow-up Visit Follow-up Visit (Physician/ROPER OPERATOR (Physician/ROPER OPERATOR ) ) Arrival Mode Wheelchair Stretcher Transfer Assistance Stretcher None Patient Identification Verified (Name & Yes Yes ) Patient Requires Transmission-Based No Precautions Finger Stick Blood Sugar(mg/dl) (if 111 131 indicated): Blood Sugar Stated by Stated by Patient Patient Vital Signs Temperature (97.8 F-99.1 F) 96.9 F L 98.2 F Temperature Source Temporal Temporal Pulse Rate (60-100) 59 L 61 Pulse Location Monitor Monitor Respiratory Rate (12-18) 16 18 Respiratory rate source Observation Observation Oxygen Delivery Method Room Air Blood Pressure (90/60-120/80) 168/43 H 189/65 H Blood Pressure Mean (mm Hg) 84 106 Source Monitor Monitor Position Sitting Sitting Blood Pressure Location Left Forearm Left Arm History Since Last Visit- (Skip if this is Patient's initial visit) Have you changed medications since your No No last visit? Any new allergies or adverse reactions No No Had a fall/change in ADL's that may No No increase risk of falls Signs or symptoms of abuse and/or No No neglect since last visit Have you been in the hospital since your No No last visit? Has dressing in place as prescribed Yes Yes Has compression in place as prescribed Yes Yes Has offloadiing in place as prescribed N/A No Experienced any changes in pain level or No No management Right Footwear Surgical Shoe with pressure relief insole Pain Scale: 0-10 Numeric Is Patient Pain Free? Yes Yes XIMENA - Nurse 1 - General Ulcer Measurement Start: 02/13/21 11:22 Freq: Status: Active Protocol: Activity Type Activity Date Activity User E-Sign Co-Sign Detail Recorded Client Recorded Date Recorded By Document 02/13/21 11:22 [facility] [id number] 02/13/21 11:32 BM Document 02/27/21 11:32 RB [id number] 02/27/21 11:46 RB 02/13/21 02/27/21 11:22 11:32 Wound Center Nurse 1 52. R heel -Combined with other wound No No -Current Size (cm) - Length 2.5 6 -Current Size (cm) - Width 1.5 2 -Current Size (cm) - Depth 0.1 0.2 -Total Square Cm 3.75 12 -Photo Taken No -Epithelialization Small 1-33% -Tunneling No No -Undermining/Tunneling No No -Circular Undermining No No -Exudate Amt Medium Medium -Exudate Type Serosanguineous Serosanguineous -Wound Margin Flat & Intact Thickened & Rolled Under -Granulation Amt Large (67-100%) Medium (34-66%) -Granulation Quality Red Stedman -Slough/Fibrin Yes Yes -Necrosis Amt Small (1-33%) Large (67-100%) -Necrotic Tissue Type Adherent Slough Adherent Slough -Structure Exposed N/A -Texture (Susy-wound Skin Appearance) Assessed, Assessed,Callus Scarring -Moisture (Susy-wound Skin Appearance) Assessed, Assessed Maceration,Dry/ Scaly -Color (Susy-wound Skin Appearance) Assessed Assessed -Temperature (Susy-wound Skin No Abnormality No Abnormality Appearance) (Pt Warm) (Pt Warm) -Tenderness on Palpation (Susy-wound No No Skin Appearance) -Ulcer Cleansing Soap and Water Wound Cleanser -Foul Odor after Cleansing No No -Anesthetic Used 4% Lidocaine 4% Lidocaine Solution Solution 51. RLE post calf cluster -Combined with other wound No -Current Size (cm) - Length 0 -Current Size (cm) - Width 0 -Current Size (cm) - Depth 0 -Total Square Cm 0 -Photo Taken No -Epithelialization Large 67-100% #49 R Dorsal foot -Combined with other wound No -Current Size (cm) - Length 1.5 -Current Size (cm) - Width 7 -Current Size (cm) - Depth 0.1 -Total Square Cm 10.5 -Photo Taken No -Epithelialization Small 1-33% -Tunneling No -Undermining/Tunneling No -Circular Undermining No -Exudate Amt Medium -Exudate Type Serosanguineous -Wound Margin Flat & Intact -Granulation Amt Medium (34-66%) -Granulation Quality Stedman -Slough/Fibrin Yes -Necrosis Amt Medium (34-66%) -Necrotic Tissue Type Adherent Slough -Texture (Susy-wound Skin Appearance) Assessed, Scarring -Moisture (Susy-wound Skin Appearance) Assessed, Maceration -Color (Susy-wound Skin Appearance) Assessed,Palor -Temperature (Susy-wound Skin No Abnormality Appearance) (Pt Warm) -Tenderness on Palpation (Susy-wound No Skin Appearance) -Ulcer Cleansing Soap and Water -Foul Odor after Cleansing No -Anesthetic Used 4% Lidocaine Solution 46-right 2nd toe -Combined with other wound No -Current Size (cm) - Length 1.5 -Current Size (cm) - Width 2 -Current Size (cm) - Depth 0.1 -Total Square Cm 3.0 -Photo Taken No -Epithelialization Small 1-33% -Tunneling No -Undermining/Tunneling No -Circular Undermining No -Exudate Amt Medium -Exudate Type Serosanguineous -Wound Margin Distinct, Outline Attached -Granulation Amt Medium (34-66%) -Granulation Quality Stedman -Slough/Fibrin Yes -Necrosis Amt Medium (34-66%) -Necrotic Tissue Type Adherent Slough -Texture (Susy-wound Skin Appearance) Assessed, Scarring -Moisture (Susy-wound Skin Appearance) Assessed, Maceration -Color (Susy-wound Skin Appearance) Assessed -Temperature (Susy-wound Skin No Abnormality Appearance) (Pt Warm) -Tenderness on Palpation (Susy-wound No Skin Appearance) -Ulcer Cleansing Soap and Water -Foul Odor after Cleansing No -Anesthetic Used 4% Lidocaine Solution #35 L Stump -Combined with other wound No No -Current Size (cm) - Length 1.3 1.2 -Current Size (cm) - Width 2.2 2.3 -Current Size (cm) - Depth 0.6 0.6 -Total Square Cm 2.86 2.76 -Photo Taken No -Epithelialization None Present -Tunneling No No -Undermining/Tunneling No Yes -Undermining/Tunneling Starts (O'clock 12 ) -Undermining/Tunneling Ends (O'clock) 12 -Maximum Distance (cm) 0.3 -Circular Undermining No -Exudate Amt Small Medium -Exudate Type Serosanguineous Serosanguineous -Wound Margin Distinct, Thickened & Outline Rolled Under Attached -Granulation Amt Large (67-100%) Medium (34-66%) -Granulation Quality Stedman Stedman -Slough/Fibrin Yes Yes -Necrosis Amt Medium (34-66%) Small (1-33%) -Necrotic Tissue Type Adherent Slough Adherent Slough -Structure Exposed N/A -Texture (Susy-wound Skin Appearance) Assessed,Callus Callus ,Fluctuance -Moisture (Susy-wound Skin Appearance) Assessed Assessed -Color (Susy-wound Skin Appearance) Assessed Assessed -Temperature (Susy-wound Skin No Abnormality No Abnormality Appearance) (Pt Warm) (Pt Warm) -Tenderness on Palpation (Susy-wound No No Skin Appearance) -Ulcer Cleansing Soap and Water Wound Cleanser -Foul Odor after Cleansing No No -Anesthetic Used 4% Lidocaine 4% Lidocaine Solution Solution Lower Limb Edema Present Yes Right Calf (cm) 47 Right Ankle (cm) 29.5 WC - Nurse 2 - General Ulcer CM Notes Start: 02/13/21 11:22 Freq: Status: Active Protocol: Activity Type Activity Date Activity User E-Sign Co-Sign Detail Recorded Client Recorded Date Recorded By Document 02/13/21 11:48 NORRIS [id number] 02/13/21 11:54 NORRIS 02/13/21 11:48 Wound Center Nurse 2 52. R heel -Time 11:54 -Correct Patient Yes -Correct Side, Site, Position Yes -Correct Procedure Yes -Procedure Performed Yes -Type of Procedure Debridement -Clinical Debridement Subcutaneous -Tissue Removed Subcutaneous -Post Debridement (cm) - Length 2.6 -Post Debridement (cm) - Width 1.5 -Post Debridement (cm) - Depth 0.1 -Total Square (Post) (cm) 3.90 -Area of Debridement (cm) - Length 2.6 -Area of Debridement (cm) - Width 1.5 -Total Square (Area) (cm) 3.90 -Tunneling No -Undermining/Tunneling No -Circular Undermining No -Wound/Ulcer Outcome Amputation -Ulcer Cleansing Rinsed/ Irrigated with Saline -Foul Odor after Cleansing No -Bioengineered Tissue No -Bleeding Controlled with Pressure -Offloading No -Treatment Response Procedure Tolerated Well -Debridement - Subq, 1st 20sq cm No 51. RLE post calf cluster -Correct Patient No -Correct Side, Site, Position No -Correct Procedure No -Procedure Performed No -Tissue Removed Dermis -Post Debridement (cm) - Length 0 -Post Debridement (cm) - Width 0 -Post Debridement (cm) - Depth 0 -Total Square (Post) (cm) 0 -Area of Debridement (cm) - Length 0 -Area of Debridement (cm) - Width 0 -Total Square (Area) (cm) 0 -Wound/Ulcer Outcome Healed- Epithelialized #49 R Dorsal foot -Correct Patient No -Correct Side, Site, Position No -Correct Procedure No -Procedure Performed No -Post Debridement (cm) - Length 0 -Post Debridement (cm) - Width 0 -Post Debridement (cm) - Depth 0 -Total Square (Post) (cm) 0 -Area of Debridement (cm) - Length 0 -Area of Debridement (cm) - Width 0 -Total Square (Area) (cm) 0 -Wound/Ulcer Outcome Healed- Epithelialized 46-right 2nd toe -Correct Patient No -Correct Side, Site, Position No -Correct Procedure No -Procedure Performed No -Post Debridement (cm) - Length 0 -Post Debridement (cm) - Width 0 -Post Debridement (cm) - Depth 0 -Total Square (Post) (cm) 0 -Area of Debridement (cm) - Length 0 -Area of Debridement (cm) - Width 0 -Total Square (Area) (cm) 0 -Wound/Ulcer Outcome Healed- Epithelialized #35 L Stump -Time 11:53 -Correct Patient Yes -Correct Side, Site, Position Yes -Correct Procedure Yes -Procedure Performed Yes -Type of Procedure Debridement -Clinical Debridement Subcutaneous -Tissue Removed Subcutaneous -Post Debridement (cm) - Length 1.3 -Post Debridement (cm) - Width 2.3 -Post Debridement (cm) - Depth 0.6 -Total Square (Post) (cm) 2.99 -Area of Debridement (cm) - Length 1.3 -Area of Debridement (cm) - Width 2.3 -Total Square (Area) (cm) 2.99 -Tunneling No -Undermining/Tunneling No -Circular Undermining No -Wound/Ulcer Outcome Not Healed -Ulcer Cleansing Rinsed/ Irrigated with Saline -Foul Odor after Cleansing No -Bioengineered Tissue No -Bleeding Controlled with Pressure -Offloading No -Treatment Response Procedure Tolerated Well -Debridement - Subq, 1st 20sq cm Yes Pain Scale: 0-10 Numeric Is Patient Pain Free? Yes - Nurse 3 - General Ulcer D/C NN Start: 02/13/21 11:22 Freq: Status: Active Protocol: Activity Type Activity Date Activity User E-Sign Co-Sign Detail Recorded Client Recorded Date Recorded By Document 02/13/21 12:00 RB [id number] 02/13/21 12:02 RB Document 02/27/21 12:10 RB [id number] 02/27/21 12:12 RB 02/13/21 02/27/21 12:00 12:10 Wound Care Nurse 3 52. R heel -Ulcer Cleansing Rinsed/ Irrigated with Saline -Other Dressing dakins solution dakins solution moistened moistened gauze gauze -Primary Dressing Covered/Secured with Dry Gauze,Dry Dry Gauze,Dry Gauze & Roll Gauze & Roll Gauze,Secured Gauze,Secured with Tape with Tape #35 L Stump -Ulcer Cleansing Rinsed/ Irrigated with Saline -Other Dressing dakin moistened dakins gauze moistened gauze -Primary Dressing Covered/Secured with Dry Gauze,Dry Dry Gauze,Dry Gauze & Roll Gauze & Roll Gauze,Secured Gauze,Secured with Tape with Tape Right -Other farrow wrap rachael wrap Left -Other single layer single layer tubigrip tubigrip Treatment Response Procedure Tolerated Well Pain Scale: 0-10 Numeric Is Patient Pain Free? Yes - Visit Discharge Discharge Condition Stable Stable Ambulatory Status Wheelchair Wheelchair Transportation Private Auto transportation Medication Reconcilliation completed & No No provided to patient/care provider Clinical Summary of Care Provided Yes Yes Assessment/Plan Assessment/Plan (1) Ulcer of left lower extremity with fat layer exposed: CODE(S): L97.922 - Non-pressure chronic ulcer of unspecified part of left lower leg with fat layer exposed (2) Ulcer of right foot with fat layer exposed: CODE(S): L97.512 - Non-pressure chronic ulcer of other part of right foot with fat layer exposed (3) Delayed wound healing: CODE(S): T14.8XXD - Other injury of unspecified body region, subsequent encounter (4) Type 2 diabetes mellitus with diabetic polyneuropathy: CODE(S): E11.42 - Type 2 diabetes mellitus with diabetic polyneuropathy (5) Localized edema: CODE(S): R60.0 - Localized edema (6) Ulcer of right lower extremity with fat layer exposed: CODE(S): L97.912 - Non-pressure chronic ulcer of unspecified part of right lower leg with fat layer exposed (7) Maceration of skin: CODE(S): L98.8 - Other specified disorders of the skin and subcutaneous tissue (8) Lymphedema: CODE(S): I89.0 - Lymphedema, not elsewhere classified (9) Cellulitis of right lower limb: CODE(S): L03.115 - Cellulitis of right lower limb PLAN: I reviewed and discussed his case. His ulcer were debrided as noted. He was reassured no local signs of infection are seen. To change dressing daily with Dakin wet-to-dry gauze next week to the left leg and right heel. To apply dry gauze interdigitally to the right foot. To use super absorption dressing if possible and available. To wash the wound with antibacterial soap and water. I encourage routine showering at least once a week if possible. No local signs of infection are noted. He completed an oral antibiotic course I do not recommend refill at this time. To continue with right lower extremity surgical shoe. To continue with automated wheelchair. To take care to avoid pressure to his right heel ulcer site. To continue to optimize healing with improved glycemic index, continued weight reduction, and well-balanced [employer] nutrients. To continue with edema management including his compression wraps and also lymphedema pumps. It is noted he has not been able to elevate as much this past week and has increased edema. Additional Mateus wrap was applied prior to Tubigrip application splint to help reduce stump edema. He was specifically advised apply the Mateus wrap to the forefoot to address his lymphedema at this level which is an ongoing issue. To reduce salt in diet; this was discussed. He has resumed Lasix and was advised to continue his advised by his primary care physician. To continue Lac-Hydrin application to dry skin on legs. He completed course of advanced wound healing product application, epi fix. He was advised to return to clinic in two weeks. Note: [employer] speech recognition editing clerk software was used to create portions of this document. Sound-alike and misspelled words, as well as other editing clerk errors may be contained in the documentation. The medical decision making level is low. There is noted low risk of morbidity after considering this treatment plan and diagnostic data. The problems addressed require a low medical decision making level which includes two or more minor problems, a stable chronic illness, or an acute uncomplicated illness or injury.
== END 2021-03-15 23:59 ==
LOC: WC 11:15
PROVIDERS: PCP Family Medicine; Visit Provider Podiatrist
DX: E11.621 Type 2 diabetes mellitus with foot ulcer (principal); L97.822 Non-pressure chronic ulcer of other part of left lower leg with fat layer exposed; T87.89 Other complications of amputation stump; Y84.8 Other medical procedures as the cause of abnormal reaction of the patient, or of later complication, without mention of misadventure at the time of the procedure; Z89.512 Acquired absence of left leg below knee; L97.512 Non-pressure chronic ulcer of other part of right foot with fat layer exposed; L03.115 Cellulitis of right lower limb; I89.0 Lymphedema, not elsewhere classified; R60.0 Localized edema
CPT/HCPCS: 11042

== ENCOUNTER 2021-04-10 13:45 | Outpatient (RCR) | payer MEDICARE, MEDICAID, SELFPAY ==
[2021-03-16 00:31] VITALS: BP 189/65; PULSE 61; RESP 18; TEMP 36.8
[2021-03-20 11:19] VITALS: BP 156/61; PULSE 67; RESP 22; TEMP 36.4
--- NOTE | 2021-03-20 22:31 | PCM.WC.PN ---
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 He also has multiple right foot ulcers and a left leg ulcer, and has been performing dressing changes as advised. He denies fever, chill, nausea, vomiting, redness, or odor. He continues to take showers. He denies odor or redness. He denies new injuries odors or green drainage. 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 No green drainage noted. Only serosanguineous drainage noted. Full epithelialization tissue to dorsal right foot, second toe, right posterior leg. no bogginess or fluctuance noted. Left leg stump site ulcer has granular and fibrous base also; unchanged. The adjacent skin is hairless and atrophic. There is no deep tissue exposure or infection or even granulation tissue seen. right heel ulcer with granular base and peripheral skin peeling without infection necrosis or deep tissue exposure; decreased size. Maceration resolved. New ulcer to plantar right heel with granular base and peripheral skin peeling. No deep tissue exposure or infection Neuro Neuro Narrative: lack of normal epicritic sensation via light touch is consistent with neuropathy status Debridement Note Debridement Note Wound debrided: right sub5th metatarsal head, right heel, left leg stump Wound Grade/Stage: 1 all Type of Debridement: Excisional debridement Anesthesia Used: 4% Lidocaine Solution Depth: in the subcutaneous layer Percentage of wound debrided: 100 Instrument Used: #15 blade Tissue Removed: fibrous, devitalized subcutaneous, biofilm, slough Severity: Fat Layer Exposed Amount of bleeding with debridement: Mild Bleeding Controlled with: Pressure Patient tolerated procedure: Patient tolerated procedure well Post-Debridement Measurements and Additional Note: Post-Debridement Measurements/Treatment XIMENA - Nurse 1 - General Ulcer Assessment Start: 03/20/21 11:18 Freq: Status: Active Protocol: [email or web address] Activity Type Activity Date Activity User E-Sign Co-Sign Detail Recorded Client Recorded Date Recorded By Document 03/20/21 11:19 DL [id number] 03/20/21 11:36 DL 03/20/21 11:19 - Today's Visit Information Type of service Follow-up Visit (Physician/FINANCIAL AID ADVISOR ) Arrival Mode Wheelchair Transfer Assistance None Patient Identification Verified (Name & Yes ) Patient Requires Transmission-Based No Precautions Finger Stick Blood Sugar(mg/dl) (if 156 indicated): Blood Sugar Stated by Patient Vital Signs Temperature (97.8 F-99.1 F) 97.6 F L Temperature Source Temporal Pulse Rate (60-100) 67 Pulse Location Monitor Respiratory Rate (12-18) 22 H Respiratory rate source Observation Blood Pressure (90/60-120/80) 156/61 H Blood Pressure Mean (mm Hg) 92 Source Monitor History Since Last Visit- (Skip if this is Patient's initial visit) Have you changed medications since your No last visit? Any new allergies or adverse reactions No Had a fall/change in ADL's that may No increase risk of falls Signs or symptoms of abuse and/or No neglect since last visit Have you been in the hospital since your No last visit? Has dressing in place as prescribed Yes Has compression in place as prescribed Yes Has offloadiing in place as prescribed Yes Experienced any changes in pain level or No management Left Footwear No Footwear Right Footwear No Footwear - Nurse 1 - General Ulcer Measurement Start: 03/20/21 11:18 Freq: Status: Active Protocol: Activity Type Activity Date Activity User E-Sign Co-Sign Detail Recorded Client Recorded Date Recorded By Document 03/20/21 11:19 DL [id number] 03/20/21 11:36 DL 03/20/21 11:19 Wound Center Nurse 1 53-right plantar heel -Current Size (cm) - Length 2.5 -Current Size (cm) - Width 1.2 -Current Size (cm) - Depth 0.1 -Total Square Cm 3.00 -Photo Taken No -Exudate Amt Medium -Exudate Type Serosanguineous -Wound Margin Distinct, Outline Attached -Granulation Amt Large (67-100%) -Granulation Quality [place],Red -Necrosis Amt Small (1-33%) -Necrotic Tissue Type Adherent Slough -Structure Exposed N/A -Texture (Susy-wound Skin Appearance) Scarring -Moisture (Susy-wound Skin Appearance) Dry/Scaly -Color (Susy-wound Skin Appearance) Hemosiderin Staining -Temperature (Susy-wound Skin No Abnormality Appearance) (Pt Warm) -Tenderness on Palpation (Susy-wound No Skin Appearance) -Ulcer Cleansing Soap and Water -Foul Odor after Cleansing No -Anesthetic Used 4% Lidocaine Solution 52. R heel -Current Size (cm) - Length 2.2 -Current Size (cm) - Width 1.8 -Current Size (cm) - Depth 0.1 -Total Square Cm 3.96 -Photo Taken No -Exudate Amt Medium -Exudate Type Serosanguineous -Wound Margin Distinct, Outline Attached -Granulation Amt Large (67-100%) -Granulation Quality [place],Red -Necrosis Amt Small (1-33%) -Necrotic Tissue Type Adherent Slough -Structure Exposed N/A -Texture (Susy-wound Skin Appearance) Scarring -Moisture (Susy-wound Skin Appearance) Dry/Scaly -Color (Susy-wound Skin Appearance) Hemosiderin Staining -Temperature (Susy-wound Skin No Abnormality Appearance) (Pt Warm) -Tenderness on Palpation (Susy-wound No Skin Appearance) -Ulcer Cleansing Soap and Water -Foul Odor after Cleansing No -Anesthetic Used 4% Lidocaine Solution #35 L Stump -Current Size (cm) - Length 1 -Current Size (cm) - Width 2.2 -Current Size (cm) - Depth 0.5 -Total Square Cm 2.2 -Photo Taken No -Exudate Amt Medium -Exudate Type Serosanguineous -Wound Margin Thickened -Granulation Amt Large (67-100%) -Granulation Quality Pale -Necrosis Amt Small (1-33%) -Necrotic Tissue Type Adherent Slough -Structure Exposed N/A -Texture (Susy-wound Skin Appearance) Scarring -Moisture (Susy-wound Skin Appearance) Dry/Scaly -Color (Susy-wound Skin Appearance) Hemosiderin Staining -Temperature (Susy-wound Skin No Abnormality Appearance) (Pt Warm) -Tenderness on Palpation (Susy-wound No Skin Appearance) -Ulcer Cleansing Soap and Water -Foul Odor after Cleansing No -Anesthetic Used 4% Lidocaine Solution Right Calf (cm) 43.7 Right Ankle (cm) 28.6 WC - Nurse 2 - General Ulcer CM Notes Start: 03/20/21 11:18 Freq: Status: Active Protocol: Activity Type Activity Date Activity User E-Sign Co-Sign Detail Recorded Client Recorded Date Recorded By Document 03/20/21 11:39 NORRIS [id number] 03/20/21 11:49 NORRIS 03/20/21 11:39 Wound Center Nurse 2 53-right plantar heel -Time 11:41 -Correct Patient Yes -Correct Side, Site, Position Yes -Correct Procedure Yes -Procedure Performed Yes -Type of Procedure Debridement -Clinical Debridement Subcutaneous -Tissue Removed Subcutaneous -Post Debridement (cm) - Length 2.5 -Post Debridement (cm) - Width 1.3 -Post Debridement (cm) - Depth 0.1 -Total Square (Post) (cm) 3.25 -Area of Debridement (cm) - Length 2.5 -Area of Debridement (cm) - Width 1.3 -Total Square (Area) (cm) 3.25 -Tunneling No -Undermining/Tunneling No -Circular Undermining No -Wound/Ulcer Outcome Not Healed -Ulcer Cleansing Rinsed/ Irrigated with Saline -Foul Odor after Cleansing No -Bioengineered Tissue No -Bleeding Controlled with Pressure -Offloading Yes -Type of Offloading Surgical Shoe -Treatment Response Procedure Tolerated Well -Debridement - Subq, 1st 20sq cm Yes 52. R heel -Time 11:41 -Correct Patient Yes -Correct Side, Site, Position Yes -Correct Procedure Yes -Procedure Performed Yes -Type of Procedure Debridement -Clinical Debridement Subcutaneous -Tissue Removed Subcutaneous -Post Debridement (cm) - Length 2.3 -Post Debridement (cm) - Width 1.8 -Post Debridement (cm) - Depth 0.1 -Total Square (Post) (cm) 4.14 -Area of Debridement (cm) - Length 2.3 -Area of Debridement (cm) - Width 1.8 -Total Square (Area) (cm) 4.14 -Tunneling No -Undermining/Tunneling No -Circular Undermining No -Wound/Ulcer Outcome Not Healed -Ulcer Cleansing Rinsed/ Irrigated with Saline -Foul Odor after Cleansing No -Bioengineered Tissue No -Bleeding Controlled with Pressure -Offloading Yes -Type of Offloading Surgical Shoe -Treatment Response Procedure Tolerated Well -Debridement - Subq, 1st 20sq cm No #35 L Stump -Time 11:41 -Correct Patient Yes -Correct Side, Site, Position Yes -Correct Procedure Yes -Procedure Performed Yes -Type of Procedure Debridement -Clinical Debridement Subcutaneous -Tissue Removed Subcutaneous -Post Debridement (cm) - Length 1.1 -Post Debridement (cm) - Width 2.2 -Post Debridement (cm) - Depth 0.5 -Total Square (Post) (cm) 2.42 -Area of Debridement (cm) - Length 1.1 -Area of Debridement (cm) - Width 2.2 -Total Square (Area) (cm) 2.42 -Tunneling No -Undermining/Tunneling No -Circular Undermining No -Wound/Ulcer Outcome Not Healed -Ulcer Cleansing Rinsed/ Irrigated with Saline -Foul Odor after Cleansing No -Bioengineered Tissue No -Bleeding Controlled with Pressure -Offloading No -Treatment Response Procedure Tolerated Well -Debridement - Subq, 1st 20sq cm No Pain Scale: 0-10 Numeric Is Patient Pain Free? Yes - Nurse 3 - General Ulcer D/C NN Start: 03/20/21 11:18 Freq: Status: Active Protocol: Activity Type Activity Date Activity User E-Sign Co-Sign Detail Recorded Client Recorded Date Recorded By Document 03/20/21 11:51 [id number] 03/20/21 11:55 03/20/21 11:51 Wound Care Nurse 3 53-right plantar heel -Other Dressing dakins 0.25% moistened guaze -Primary Dressing Covered/Secured with Dry Gauze,Dry Gauze & Roll Gauze,Secured with Tape 52. R heel -Other Dressing dakin moistened gauze -Primary Dressing Covered/Secured with Dry Gauze,Dry Gauze & Roll Gauze,Secured with Tape #35 L Stump -Other Dressing dakin moistened gauze -Primary Dressing Covered/Secured with Dry Gauze,Dry Gauze & Roll Gauze,Secured with Tape Right -Other farrow wrap Left -Other single layer tubigrip then mateus Treatment Response Procedure Tolerated Well Pain Scale: 0-10 Numeric Is Patient Pain Free? Yes WC - Visit Discharge Discharge Condition Stable Ambulatory Status Wheelchair Medication Reconcilliation completed & No provided to patient/care provider Clinical Summary of Care Provided Yes Assessment/Plan Assessment/Plan (1) Ulcer of left lower extremity with fat layer exposed: CODE(S): L97.922 - Non-pressure chronic ulcer of unspecified part of left lower leg with fat layer exposed (2) Ulcer of right foot with fat layer exposed: CODE(S): L97.512 - Non-pressure chronic ulcer of other part of right foot with fat layer exposed (3) Delayed wound healing: CODE(S): T14.8XXD - Other injury of unspecified body region, subsequent encounter (4) Type 2 diabetes mellitus with diabetic polyneuropathy: CODE(S): E11.42 - Type 2 diabetes mellitus with diabetic polyneuropathy (5) Localized edema: CODE(S): R60.0 - Localized edema (6) Ulcer of right lower extremity with fat layer exposed: CODE(S): L97.912 - Non-pressure chronic ulcer of unspecified part of right lower leg with fat layer exposed (7) Maceration of skin: CODE(S): L98.8 - Other specified disorders of the skin and subcutaneous tissue (8) Lymphedema: CODE(S): I89.0 - Lymphedema, not elsewhere classified (9) Cellulitis of right lower limb: CODE(S): L03.115 - Cellulitis of right lower limb PLAN: I reviewed and discussed his case. His ulcer were debrided as noted. He was reassured no local signs of infection are seen. To change dressing daily with aquacell ag to left leg and right heel. To apply dry gauze interdigitally to the right foot. To use super absorption dressing if possible and available. To wash the wound with antibacterial soap and water. I encourage routine showering at least once a week if possible. No local signs of infection are noted. He completed an oral antibiotic course I do not recommend refill at this time. To continue with right lower extremity surgical shoe. To continue with automated wheelchair. To take care to avoid pressure to his right heel ulcer site. To continue to optimize healing with improved glycemic index, continued weight reduction, and well-balanced [employer] nutrients. To continue with edema management including his compression wraps and also lymphedema pumps. It is noted he has not been able to elevate as much this past week and has increased edema. Additional Mateus wrap was applied prior to Tubigrip application splint to help reduce stump edema. He was specifically advised apply the Mateus wrap to the forefoot to address his lymphedema at this level which is an ongoing issue. To reduce salt in diet; this was discussed. He has resumed Lasix and was advised to continue his advised by his primary care physician. To continue Lac-Hydrin application to dry skin on legs. He completed course of advanced wound healing product application, epi fix. He was advised to return to clinic in two weeks. Note: [employer] speech recognition mobile pet groomer software was used to create portions of this document. Sound-alike and misspelled words, as well as other mobile pet groomer errors may be contained in the documentation.
[2021-04-03 11:23] VITALS: BP 149/52; PULSE 66; RESP 18; TEMP 36.6
--- NOTE | 2021-04-03 14:37 | PCM.WC.PN ---
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 He also has multiple right foot ulcers and a left leg ulcer, and has been performing dressing changes as advised. He denies fever, chill, nausea, vomiting, redness, or odor. He does report some new left leg ulcers at his stump site with an onset of this past week. He had prior left below-knee amputation in the remote setting with Dr. Pompa. He denies traumatic incident. He reports some increased pain and swelling in the new drainage. Progress of Wound: stable right tends to Worsening status with new ulcers left leg stump Objective Data Objective Data Vital Signs: Vital Signs Temp Pulse Resp BP 98 F 66 18 149/52 H 04/03/21 11:23 04/03/21 11:23 04/03/21 11:23 04/03/21 11:23 Physical Exam Extremity Extremity Narrative: No calf tenderness Diminished pulses Muscle wasting noted Left below-knee amputation and right hallux amputation Compartments remain soft to palpate bilateral lower extremities Skin Skin Narrative: no purulence, no streaking, no odor, no infection. No green drainage noted. Only serosanguineous drainage noted. Full epithelialization tissue to dorsal right foot, second toe, right posterior leg. no bogginess or fluctuance noted. Left leg stump site ulcer has granular and fibrous base also; unchanged. There is new ulcer to the lateral stump site and also just proximal lateral to the chronic ulcer site with deep probing and serosanguineous drainage and fibrous bases. The smaller wound closest to the initial chronic ulcer does probe to deep tissues possibly bone. The adjacent skin is hairless and atrophic. There is no deep tissue exposure or infection or even granulation tissue seen on the right lower extremity. right heel ulcer and right subfifth metatarsal head ulcer with granular base and peripheral skin peeling without infection necrosis or deep tissue exposure; decreased size. Maceration resolved. Neuro Neuro Narrative: lack of normal epicritic sensation via light touch is consistent with neuropathy status Debridement Note Debridement Note Wound debrided: Right heel and submetatarsal head, left leg stump sites x3 Wound Grade/Stage: 1,1 Type of Debridement: Excisional debridement Anesthesia Used: 4% Lidocaine Solution Depth: in the subcutaneous layer Percentage of wound debrided: 100 Instrument Used: #15 blade Tissue Removed: fibrous, devitalized subcutaneous, biofilm, slough Severity: Fat Layer Exposed Amount of bleeding with debridement: Mild Bleeding Controlled with: Pressure Patient tolerated procedure: Patient tolerated procedure well Post-Debridement Measurements and Additional Note: Post-Debridement Measurements/Treatment - Nurse 1 - General Ulcer Assessment Start: 03/20/21 11:18 Freq: Status: Active Protocol: SUSAN Activity Type Activity Date Activity User E-Sign Co-Sign Detail Recorded Client Recorded Date Recorded By Document 03/20/21 11:19 DL [id number] 03/20/21 11:36 DL Document 04/03/21 11:23 RB [id number] 04/03/21 11:34 RB 03/20/21 04/03/21 11:19 11:23 WC - Today's Visit Information Type of service Follow-up Visit Follow-up Visit (Physician/CARTOGRAPHY/MAPPING TECHNICIAN (Physician/CARTOGRAPHY/MAPPING TECHNICIAN ) ) Arrival Mode Wheelchair Wheelchair Transfer Assistance None None Patient Identification Verified (Name & Yes Yes ) Patient Requires Transmission-Based No Precautions Finger Stick Blood Sugar(mg/dl) (if 156 indicated): Blood Sugar Stated by Patient Vital Signs Temperature (97.8 F-99.1 F) 97.6 F L 98 F Temperature Source Temporal Temporal Pulse Rate (60-100) 67 66 Pulse Location Monitor Monitor Respiratory Rate (12-18) 22 H 18 Respiratory rate source Observation Observation Blood Pressure (90/60-120/80) 156/61 H 149/52 H Blood Pressure Mean (mm Hg) 92 84 Source Monitor Monitor Position Semi-Fowlers Blood Pressure Location Left Arm History Since Last Visit- (Skip if this is Patient's initial visit) Have you changed medications since your No No last visit? Any new allergies or adverse reactions No No Had a fall/change in ADL's that may No No increase risk of falls Signs or symptoms of abuse and/or No No neglect since last visit Have you been in the hospital since your No No last visit? Has dressing in place as prescribed Yes Yes Has compression in place as prescribed Yes Yes Has offloadiing in place as prescribed Yes No Experienced any changes in pain level or No No management Left Footwear No Footwear Right Footwear No Footwear Pain Scale: 0-10 Numeric Is Patient Pain Free? Yes - Nurse 1 - General Ulcer Measurement Start: 03/20/21 11:18 Freq: Status: Active Protocol: Activity Type Activity Date Activity User E-Sign Co-Sign Detail Recorded Client Recorded Date Recorded By Document 03/20/21 11:19 DL [id number] 03/20/21 11:36 DL Document 04/03/21 11:23 RB [id number] 04/03/21 11:34 RB 03/20/21 04/03/21 11:19 11:23 Wound Center Nurse 1 55. Superior of L stump ulcer -Combined with other wound No -Current Size (cm) - Length 0.2 -Current Size (cm) - Width 0.3 -Current Size (cm) - Depth 2.2 -Total Square Cm 0.06 -Tunneling No -Undermining/Tunneling No -Circular Undermining No -Exudate Amt Large -Exudate Type Purulent -Wound Margin Distinct, Outline Attached -Granulation Amt Medium (34-66%) -Granulation Quality [place] -Slough/Fibrin Yes -Necrosis Amt Large (67-100%) -Necrotic Tissue Type Adherent Slough -Structure Exposed N/A -Texture (Susy-wound Skin Appearance) Assessed -Moisture (Susy-wound Skin Appearance) Assessed -Color (Susy-wound Skin Appearance) Assessed -Temperature (Susy-wound Skin No Abnormality Appearance) (Pt Warm) -Tenderness on Palpation (Susy-wound No Skin Appearance) -Ulcer Cleansing Wound Cleanser -Foul Odor after Cleansing No -Anesthetic Used 4% Lidocaine Solution 54. L stump lateral -Combined with other wound No -Current Size (cm) - Length 1.4 -Current Size (cm) - Width 1.9 -Current Size (cm) - Depth 0.6 -Total Square Cm 2.66 -Tunneling No -Undermining/Tunneling No -Circular Undermining No -Exudate Amt Large -Exudate Type Purulent -Wound Margin Distinct, Outline Attached -Granulation Amt Medium (34-66%) -Granulation Quality [place] -Slough/Fibrin Yes -Necrosis Amt Large (67-100%) -Necrotic Tissue Type Adherent Slough -Structure Exposed N/A -Texture (Susy-wound Skin Appearance) Assessed -Moisture (Susy-wound Skin Appearance) Assessed -Color (Susy-wound Skin Appearance) Assessed -Temperature (Susy-wound Skin No Abnormality Appearance) (Pt Warm) -Tenderness on Palpation (Susy-wound No Skin Appearance) -Ulcer Cleansing Wound Cleanser -Foul Odor after Cleansing Yes, Due to Product Use -Anesthetic Used 4% Lidocaine Solution 53-right plantar heel -Current Size (cm) - Length 2.5 -Current Size (cm) - Width 1.2 -Current Size (cm) - Depth 0.1 -Total Square Cm 3.00 -Photo Taken No -Exudate Amt Medium -Exudate Type Serosanguineous -Wound Margin Distinct, Outline Attached -Granulation Amt Large (67-100%) -Granulation Quality [place],Red -Necrosis Amt Small (1-33%) -Necrotic Tissue Type Adherent Slough -Structure Exposed N/A -Texture (Susy-wound Skin Appearance) Scarring -Moisture (Susy-wound Skin Appearance) Dry/Scaly -Color (Susy-wound Skin Appearance) Hemosiderin Staining -Temperature (Susy-wound Skin No Abnormality Appearance) (Pt Warm) -Tenderness on Palpation (Susy-wound No Skin Appearance) -Ulcer Cleansing Soap and Water -Foul Odor after Cleansing No -Anesthetic Used 4% Lidocaine Solution 52. R heel -Current Size (cm) - Length 2.2 -Current Size (cm) - Width 1.8 -Current Size (cm) - Depth 0.1 -Total Square Cm 3.96 -Photo Taken No -Exudate Amt Medium -Exudate Type Serosanguineous -Wound Margin Distinct, Outline Attached -Granulation Amt Large (67-100%) -Granulation Quality [place],Red -Necrosis Amt Small (1-33%) -Necrotic Tissue Type Adherent Slough -Structure Exposed N/A -Texture (Susy-wound Skin Appearance) Scarring -Moisture (Susy-wound Skin Appearance) Dry/Scaly -Color (Susy-wound Skin Appearance) Hemosiderin Staining -Temperature (Susy-wound Skin No Abnormality Appearance) (Pt Warm) -Tenderness on Palpation (Susy-wound No Skin Appearance) -Ulcer Cleansing Soap and Water -Foul Odor after Cleansing No -Anesthetic Used 4% Lidocaine Solution #35 L Stump -Current Size (cm) - Length 1 -Current Size (cm) - Width 2.2 -Current Size (cm) - Depth 0.5 -Total Square Cm 2.2 -Photo Taken No -Exudate Amt Medium -Exudate Type Serosanguineous -Wound Margin Thickened -Granulation Amt Large (67-100%) -Granulation Quality Pale -Necrosis Amt Small (1-33%) -Necrotic Tissue Type Adherent Slough -Structure Exposed N/A -Texture (Susy-wound Skin Appearance) Scarring -Moisture (Susy-wound Skin Appearance) Dry/Scaly -Color (Susy-wound Skin Appearance) Hemosiderin Staining -Temperature (Susy-wound Skin No Abnormality Appearance) (Pt Warm) -Tenderness on Palpation (Susy-wound No Skin Appearance) -Ulcer Cleansing Soap and Water -Foul Odor after Cleansing No -Anesthetic Used 4% Lidocaine Solution Right Calf (cm) 43.7 Right Ankle (cm) 28.6 WC - Nurse 2 - General Ulcer CM Notes Start: 03/20/21 11:18 Freq: Status: Active Protocol: Activity Type Activity Date Activity User E-Sign Co-Sign Detail Recorded Client Recorded Date Recorded By Document 03/20/21 11:39 [id number] 03/20/21 11:49 Document 04/03/21 12:12 [id number] 04/03/21 12:19 03/20/21 04/03/21 11:39 12:12 Wound Center Nurse 2 55. Superior of L stump ulcer -Time 12:13 -Correct Patient Yes -Correct Side, Site, Position Yes -Correct Procedure Yes -Procedure Performed Yes -Type of Procedure Debridement -Clinical Debridement Subcutaneous -Tissue Removed Subcutaneous -Post Debridement (cm) - Length 0.3 -Post Debridement (cm) - Width 0.3 -Post Debridement (cm) - Depth 2.2 -Total Square (Post) (cm) 0.09 -Area of Debridement (cm) - Length 0.3 -Area of Debridement (cm) - Width 0.3 -Total Square (Area) (cm) 0.09 -Tunneling No -Undermining/Tunneling No -Circular Undermining No -Wound/Ulcer Outcome Not Healed -Ulcer Cleansing Rinsed/ Irrigated with Saline -Foul Odor after Cleansing No -Bioengineered Tissue No -Bleeding Controlled with Pressure -Offloading No -Treatment Response Procedure Tolerated Well -Debridement - Subq, 1st 20sq cm No 54. L stump lateral -Time 12:13 -Correct Patient Yes -Correct Side, Site, Position Yes -Correct Procedure Yes -Procedure Performed Yes -Type of Procedure Debridement -Clinical Debridement Subcutaneous -Tissue Removed Subcutaneous -Post Debridement (cm) - Length 1.5 -Post Debridement (cm) - Width 2.0 -Post Debridement (cm) - Depth 0.6 -Total Square (Post) (cm) 3.00 -Area of Debridement (cm) - Length 1.5 -Area of Debridement (cm) - Width 2.0 -Total Square (Area) (cm) 3.00 -Tunneling No -Undermining/Tunneling No -Circular Undermining No -Wound/Ulcer Outcome Not Healed -Ulcer Cleansing Rinsed/ Irrigated with Saline -Foul Odor after Cleansing No -Bioengineered Tissue No -Bleeding Controlled with Pressure -Offloading No -Treatment Response Procedure Tolerated Well -Debridement - Subq, 1st 20sq cm No 53-right plantar heel -Time 11:41 12:14 -Correct Patient Yes Yes -Correct Side, Site, Position Yes Yes -Correct Procedure Yes Yes -Procedure Performed Yes Yes -Type of Procedure Debridement Debridement -Clinical Debridement Subcutaneous Subcutaneous -Tissue Removed Subcutaneous Subcutaneous -Post Debridement (cm) - Length 2.5 2.2 -Post Debridement (cm) - Width 1.3 1.8 -Post Debridement (cm) - Depth 0.1 0.1 -Total Square (Post) (cm) 3.25 3.96 -Area of Debridement (cm) - Length 2.5 2.2 -Area of Debridement (cm) - Width 1.3 1.8 -Total Square (Area) (cm) 3.25 3.96 -Tunneling No No -Undermining/Tunneling No No -Circular Undermining No No -Wound/Ulcer Outcome Not Healed Not Healed -Ulcer Cleansing Rinsed/ Rinsed/ Irrigated with Irrigated with Saline Saline -Foul Odor after Cleansing No No -Bioengineered Tissue No No -Bleeding Controlled with Pressure Pressure -Offloading Yes Yes -Type of Offloading Surgical Shoe Surgical Shoe -Treatment Response Procedure Procedure Tolerated Well Tolerated Well -Debridement - Subq, 1st 20sq cm Yes No 52. R heel -Time 11:41 12:15 -Correct Patient Yes Yes -Correct Side, Site, Position Yes Yes -Correct Procedure Yes Yes -Procedure Performed Yes Yes -Type of Procedure Debridement Debridement -Clinical Debridement Subcutaneous Subcutaneous -Tissue Removed Subcutaneous Subcutaneous -Post Debridement (cm) - Length 2.3 2.2 -Post Debridement (cm) - Width 1.8 1.8 -Post Debridement (cm) - Depth 0.1 0.1 -Total Square (Post) (cm) 4.14 3.96 -Area of Debridement (cm) - Length 2.3 2.2 -Area of Debridement (cm) - Width 1.8 1.8 -Total Square (Area) (cm) 4.14 3.96 -Tunneling No No -Undermining/Tunneling No No -Circular Undermining No No -Wound/Ulcer Outcome Not Healed Not Healed -Ulcer Cleansing Rinsed/ Rinsed/ Irrigated with Irrigated with Saline Saline -Foul Odor after Cleansing No No -Bioengineered Tissue No No -Bleeding Controlled with Pressure -Offloading Yes Yes -Type of Offloading Surgical Shoe Surgical Shoe -Treatment Response Procedure Procedure Tolerated Well Tolerated Well -Debridement - Subq, 1st 20sq cm No No #35 L Stump -Time 11:41 12:16 -Correct Patient Yes Yes -Correct Side, Site, Position Yes Yes -Correct Procedure Yes Yes -Procedure Performed Yes Yes -Type of Procedure Debridement Debridement -Clinical Debridement Subcutaneous Subcutaneous -Tissue Removed Subcutaneous Subcutaneous -Post Debridement (cm) - Length 1.1 2.8 -Post Debridement (cm) - Width 2.2 3 -Post Debridement (cm) - Depth 0.5 0.3 -Total Square (Post) (cm) 2.42 8.4 -Area of Debridement (cm) - Length 1.1 2.8 -Area of Debridement (cm) - Width 2.2 3 -Total Square (Area) (cm) 2.42 8.4 -Tunneling No No -Undermining/Tunneling No No -Circular Undermining No No -Wound/Ulcer Outcome Not Healed Not Healed -Ulcer Cleansing Rinsed/ Rinsed/ Irrigated with Irrigated with Saline Saline -Foul Odor after Cleansing No No -Bioengineered Tissue No No -Bleeding Controlled with Pressure Pressure -Offloading No No -Treatment Response Procedure Procedure Tolerated Well Tolerated Well -Debridement - Subq, 1st 20sq cm No No Pain Scale: 0-10 Numeric Is Patient Pain Free? Yes Yes WC - Nurse 3 - General Ulcer D/C NN Start: 03/20/21 11:18 Freq: Status: Active Protocol: Activity Type Activity Date Activity User E-Sign Co-Sign Detail Recorded Client Recorded Date Recorded By Document 03/20/21 11:51 RB [id number] 03/20/21 11:55 RB Document 04/03/21 12:07 DL [id number] 04/03/21 12:10 DL 03/20/21 04/03/21 11:51 12:07 Wound Care Nurse 3 55. Superior of L stump ulcer -Ulcer Cleansing Soap and Water -Foul Odor after Cleansing No -Other Dressing Dakins -Primary Dressing Covered/Secured with Dry Gauze & Roll Gauze, Secured with Tape 54. L stump lateral -Ulcer Cleansing Soap and Water -Foul Odor after Cleansing No -Other Dressing Dakins -Primary Dressing Covered/Secured with Dry Gauze & Roll Gauze, Secured with Tape 53-right plantar heel -Ulcer Cleansing Soap and Water -Foul Odor after Cleansing No -Other Dressing dakins 0.25% dakins moistened guaze -Primary Dressing Covered/Secured with Dry Gauze,Dry Dry Gauze & Gauze & Roll Roll Gauze, Gauze,Secured Secured with with Tape Tape 52. R heel -Ulcer Cleansing Soap and Water -Foul Odor after Cleansing No -Other Dressing dakin moistened dakins gauze -Primary Dressing Covered/Secured with Dry Gauze,Dry Dry Gauze & Gauze & Roll Roll Gauze, Gauze,Secured Secured with with Tape Tape #35 L Stump -Ulcer Cleansing Soap and Water -Foul Odor after Cleansing No -Other Dressing dakin moistened Dakins gauze -Primary Dressing Covered/Secured with Dry Gauze,Dry Dry Gauze & Gauze & Roll Roll Gauze, Gauze,Secured Secured with with Tape Tape Right -Compression Wrap [place] Wrap -Other farrow wrap tubigrip Left -Other single layer tubigrip tubigrip then mateus Treatment Response Procedure Procedure Tolerated Well Tolerated Well Pain Scale: 0-10 Numeric Is Patient Pain Free? Yes Yes WC - Visit Discharge Discharge Condition Stable Stable Ambulatory Status Wheelchair Wheelchair Transportation [place] [facility] Medication Reconcilliation completed & No provided to patient/care provider Clinical Summary of Care Provided Yes Facility Type Home Health Orders Sent Yes Assessment/Plan Assessment/Plan (1) Ulcer of left lower extremity with fat layer exposed: CODE(S): L97.922 - Non-pressure chronic ulcer of unspecified part of left lower leg with fat layer exposed (2) Ulcer of right foot with fat layer exposed: CODE(S): L97.512 - Non-pressure chronic ulcer of other part of right foot with fat layer exposed (3) Delayed wound healing: CODE(S): T14.8XXD - Other injury of unspecified body region, subsequent encounter (4) Type 2 diabetes mellitus with diabetic polyneuropathy: CODE(S): E11.42 - Type 2 diabetes mellitus with diabetic polyneuropathy (5) Localized edema: CODE(S): R60.0 - Localized edema (6) Lymphedema: CODE(S): I89.0 - Lymphedema, not elsewhere classified (7) Cellulitis of right lower limb: CODE(S): L03.115 - Cellulitis of right lower limb (8) Osteomyelitis: CODE(S): M86.9 - Osteomyelitis, unspecified PLAN: I reviewed and discussed his case. His ulcer were debrided as noted. He was reassured no local signs of infection are seen. To change dressing daily with aquacell ag to right foot ulcers. I recommend changing the new left stump sites with Betadine wet-to-dry gauze. He already has a supply at home and does not have Dakin's. It would be okay to use Dakin's if he has this available. To wash the wound with antibacterial soap and water. I encourage routine showering at least once a week if possible. I am concerned about his new deep probing ulcers to the left stump site with a work-up in process for osteomyelitis or deep space infection. There is no purulence on expression streaking erythema however the probing to deep structures there is concern. After debridement and irrigation, wound cultures were obtained including aerobic, anaerobic, and MRSA PCR. I will follow these results to see if an antibiotic is appropriate. A leg x-ray was ordered. I also updated his lab order for CBC, CMP, ESR, C-reactive protein. It is noted that he recently had labs done in March 25, 2021 mainly to look at his cholesterol panel. His A1c was 7.9%. His creatinine at this time was 2.33, GFR 30, vitamin D 19. I recommend he follow-up with Dr. Pompa due to his changes to his surgical site and suspected deeper tissue involvement. I recommend following up next week and he will work on transportation arrangements. To continue with right lower extremity surgical shoe. To continue with automated wheelchair. To take care to avoid pressure to his right heel ulcer site. To continue to optimize healing with improved glycemic index, continued weight reduction, and well-balanced whole food nutrients. To continue with edema management including his compression wraps and also lymphedema pumps. It is noted he has not been able to elevate as much this past week and has increased edema. Additional [place] wrap was applied prior to Tubigrip application splint to help reduce stump edema. He was specifically advised apply the [place] wrap to the forefoot to address his lymphedema at this level which is an ongoing issue. To reduce salt in diet; this was discussed. He has resumed Lasix and was advised to continue his advised by his primary care physician. To continue Lac-Hydrin application to dry skin on legs. It is noted that he completed course of advanced wound healing product application, epi fix. He was advised to return to clinic in two weeks. Note: [employer] speech recognition skilled nursing case manager software was used to create portions of this document. Sound-alike and misspelled words, as well as other skilled nursing case manager errors may be contained in the documentation. The medical decision making level is moderate based on data including at least three of the following: review of prior external notes, review of a test, ordering a test, assessment requiring an independent historian. The medical decision making level is moderate. There is noted moderate risk of morbidity after considering this treatment plan and diagnostic data. Considerations were given to prescription management, decisions regarding surgical options, or social determinants of health.
[2021-04-03 18:05] LABS: M R Staph aureus DNA By PCR Negative (Negative); Probe Check PASS; Specimen Processing Control PASS; Staph aureus DNA By PCR NEGATIVE (Negative)
[2021-04-10 13:34] VITALS: BP 165/61; PULSE 66; RESP 18; TEMP 36.5
--- NOTE | 2021-04-10 14:18 | PN.PCM_ITS ---
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 He also has multiple right foot ulcers and a left leg ulcer, and has been performing dressing changes as advised. He denies fever, chill, nausea, vomiting, redness, or odor. He had prior left below-knee amputation in the remote setting with Dr. Pompa. He denies traumatic incident. He reports some increased pain and swelling in the increased drainage. He did not get his lab work and x-rays as ordered last week. He was referred back to Dr. Pompa for work-up of his deteriorated left limb status and is here to see him this afternoon. Progress of Wound: stable right Worsening status with newer ulcers left leg stump Objective Data Objective Data Vital Signs: Vital Signs Temp Pulse Resp BP 97.7 F L 66 18 165/61 H 04/10/21 13:34 04/10/21 13:34 04/10/21 13:34 04/10/21 13:34 Lab / Micro Data Micro: Microbiology 04/03/21 Unknown Tissue Ulcer - Leg Gram Stain - Final 04/03/21 Unknown Tissue Ulcer - Leg Wound Culture - Final Pseudomonas aeroginosa Citrobacter braakii Coag Negative Staph 04/03/21 Unknown Tissue Ulcer - Leg Anaerobic Culture - Final Anaerobic cocci Physical Exam Extremity Extremity Narrative: No calf tenderness Diminished pulses Muscle wasting noted Left below-knee amputation and right hallux amputation Compartments remain soft to palpate bilateral lower extremities Skin Skin Narrative: no purulence, no streaking, no odor, no infection. No green drainage noted. Only serosanguineous drainage noted. Full epithelialization tissue to dorsal right foot, second toe, right posterior leg. no bogginess or fluctuance noted. The adjacent skin is hairless and atrophic. There is no deep tissue exposure or infection or even granulation tissue seen on the right lower extremity. right heel ulcer and right subfifth metatarsal head ulcer with granular base and peripheral skin peeling without infection, necrosis, or deep tissue exposure; decreased size. Maceration resolved. left lower limb evaluated by plastic surgery today. Neuro Neuro Narrative: lack of normal epicritic sensation via light touch is co nsistent with neuropathy status Debridement Note Debridement Note Wound debrided: right heel and sub 5th metatarsal head Wound Grade/Stage: 1 Type of Debridement: Excisional debridement Anesthesia Used: 4% Lidocaine Solution Depth: in the subcutaneous layer Percentage of wound debrided: 100 Instrument Used: #15 blade Tissue Removed: fibrous, devitalized subcutaneous, biofilm, slough Severity: Fat Layer Exposed Amount of bleeding with debridement: Mild Bleeding Controlled with: Pressure Patient tolerated procedure: Patient tolerated procedure well Post-Debridement Measurements and Additional Note: Post-Debridement Measurements/Treatment - Nurse 1 - General Ulcer Assessment Start: 03/20/21 11:18 Freq: Status: Active Protocol: SUSAN Activity Type Activity Date Activity User E-Sign Co-Sign Detail Recorded Client Recorded Date Recorded By Document 03/20/21 11:19 DL [id number] 03/20/21 11:36 DL Document 04/03/21 11:23 RB [id number] 04/03/21 11:34 RB Document 04/10/21 13:34 RB [id number] 04/10/21 13:46 RB 03/20/21 04/03/21 04/10/21 11:19 11:23 13:34 - Today's Visit Information Type of service Follow-up Visit Follow-up Visit Follow-up Visit (Physician/COMMERCIAL FRONT LOAD DRIVER (Physician/COMMERCIAL FRONT LOAD DRIVER (Physician/COMMERCIAL FRONT LOAD DRIVER ) ) ) Arrival Mode Wheelchair Wheelchair Wheelchair Transfer Assistance None None None Patient Identification Verified (Name & Yes Yes Yes ) Patient Requires Transmission-Based No No Precautions Finger Stick Blood Sugar(mg/dl) (if 156 140 indicated): Blood Sugar Stated by Stated by Patient Patient Vital Signs Temperature (97.8 F-99.1 F) 97.6 F L 98 F 97.7 F L Temperature Source Temporal Temporal Temporal Pulse Rate (60-100) 67 66 66 Pulse Location Monitor Monitor Monitor Respiratory Rate (12-18) 22 H 18 18 Respiratory rate source Observation Observation Observation Blood Pressure (90/60-120/80) 156/61 H 149/52 H 165/61 H Blood Pressure Mean (mm Hg) 92 84 95 Source Monitor Monitor Monitor Position Semi-Fowlers Semi-Fowlers Blood Pressure Location Left Arm Left Arm History Since Last Visit- (Skip if this is Patient's initial visit) Have you changed medications since your No No No last visit? Any new allergies or adverse reactions No No No Had a fall/change in ADL's that may No No No increase risk of falls Signs or symptoms of abuse and/or No No No neglect since last visit Have you been in the hospital since your No No No last visit? Has dressing in place as prescribed Yes Yes Yes Has compression in place as prescribed Yes Yes Yes Has offloadiing in place as prescribed Yes No Yes Experienced any changes in pain level or No No No management Left Footwear No Footwear Right Footwear No Footwear Pain Scale: 0-10 Numeric Is Patient Pain Free? Yes Yes WC - Nurse 1 - General Ulcer Measurement Start: 03/20/21 11:18 Freq: Status: Active Protocol: Activity Type Activity Date Activity User E-Sign Co-Sign Detail Recorded Client Recorded Date Recorded By Document 03/20/21 11:19 DL [id number] 03/20/21 11:36 DL Document 04/03/21 11:23 RB [id number] 04/03/21 11:34 RB Document 04/10/21 13:34 RB [id number] 04/10/21 13:46 RB 03/20/21 04/03/21 04/10/21 11:19 11:23 13:34 Wound Center Nurse 1 56. R plantar lateral foot -Combined with other wound No -Current Size (cm) - Length 2 -Current Size (cm) - Width 1.3 -Current Size (cm) - Depth 0.2 -Total Square Cm 2.6 -Photo Taken Yes -Tunneling No -Undermining/Tunneling No -Circular Undermining No -Exudate Amt Medium -Exudate Type Serosanguineous -Wound Margin Thickened & Rolled Under -Granulation Amt Medium (34-66%) -Granulation Quality Sutton -Slough/Fibrin Yes -Necrosis Amt Large (67-100%) -Necrotic Tissue Type Adherent Slough -Structure Exposed N/A -Texture (Susy-wound Skin Appearance) Callus -Moisture (Susy-wound Skin Appearance) Assessed -Color (Susy-wound Skin Appearance) Assessed -Temperature (Susy-wound Skin No Abnormality Appearance) (Pt Warm) -Tenderness on Palpation (Susy-wound No Skin Appearance) -Ulcer Cleansing Wound Cleanser -Foul Odor after Cleansing No -Anesthetic Used 4% Lidocaine Solution 55. Superior of L stump ulcer -Combined with other wound No No -Current Size (cm) - Length 0.2 0.1 -Current Size (cm) - Width 0.3 0.1 -Current Size (cm) - Depth 2.2 1 -Total Square Cm 0.06 0.01 -Tunneling No No -Undermining/Tunneling No No -Circular Undermining No No -Exudate Amt Large Large -Exudate Type Purulent Serosanguineous -Wound Margin Distinct, Distinct, Outline Outline Attached Attached -Granulation Amt Medium (34-66%) Medium (34-66%) -Granulation Quality Sutton Sutton -Slough/Fibrin Yes Yes -Necrosis Amt Large (67-100%) Medium (34-66%) -Necrotic Tissue Type Adherent Slough Adherent Slough -Structure Exposed N/A N/A -Texture (Susy-wound Skin Appearance) Assessed Assessed -Moisture (Susy-wound Skin Appearance) Assessed Assessed,Dry/ Scaly -Color (Susy-wound Skin Appearance) Assessed Assessed -Temperature (Susy-wound Skin No Abnormality No Abnormality Appearance) (Pt Warm) (Pt Warm) -Tenderness on Palpation (Susy-wound No No Skin Appearance) -Ulcer Cleansing Wound Cleanser Wound Cleanser -Foul Odor after Cleansing No No -Anesthetic Used 4% Lidocaine 4% Lidocaine Solution Solution 54. L stump lateral -Combined with other wound No No -Current Size (cm) - Length 1.4 1.4 -Current Size (cm) - Width 1.9 1.3 -Current Size (cm) - Depth 0.6 0.7 -Total Square Cm 2.66 1.82 -Tunneling No No -Undermining/Tunneling No No -Circular Undermining No No -Exudate Amt Large Large -Exudate Type Purulent Serosanguineous -Wound Margin Distinct, Thickened & Outline Rolled Under Attached -Granulation Amt Medium (34-66%) Medium (34-66%) -Granulation Quality Sutton Sutton -Slough/Fibrin Yes Yes -Necrosis Amt Large (67-100%) Small (1-33%) -Necrotic Tissue Type Adherent Slough Adherent Slough -Structure Exposed N/A N/A -Texture (Susy-wound Skin Appearance) Assessed Assessed -Moisture (Susy-wound Skin Appearance) Assessed Dry/Scaly -Color (Susy-wound Skin Appearance) Assessed Assessed -Temperature (Susy-wound Skin No Abnormality No Abnormality Appearance) (Pt Warm) (Pt Warm) -Tenderness on Palpation (Susy-wound No No Skin Appearance) -Ulcer Cleansing Wound Cleanser Wound Cleanser -Foul Odor after Cleansing Yes, Due to No Product Use -Anesthetic Used 4% Lidocaine 4% Lidocaine Solution Solution 53-right plantar heel -Combined with other wound No -Current Size (cm) - Length 2.5 2.4 -Current Size (cm) - Width 1.2 1 -Current Size (cm) - Depth 0.1 0.1 -Total Square Cm 3.00 2.4 -Photo Taken No -Tunneling No -Undermining/Tunneling No -Circular Undermining No -Exudate Amt Medium Large -Exudate Type Serosanguineous Serosanguineous -Wound Margin Distinct, Thickened & Outline Rolled Under Attached -Granulation Amt Large (67-100%) Medium (34-66%) -Granulation Quality Sutton,Red Sutton -Slough/Fibrin Yes -Necrosis Amt Small (1-33%) Large (67-100%) -Necrotic Tissue Type Adherent Slough Adherent Slough -Structure Exposed N/A N/A -Texture (Susy-wound Skin Appearance) Scarring Assessed -Moisture (Susy-wound Skin Appearance) Dry/Scaly Dry/Scaly -Color (Susy-wound Skin Appearance) Hemosiderin Assessed Staining -Temperature (Susy-wound Skin No Abnormality No Abnormality Appearance) (Pt Warm) (Pt Warm) -Tenderness on Palpation (Susy-wound No No Skin Appearance) -Ulcer Cleansing Soap and Water Wound Cleanser -Foul Odor after Cleansing No No -Anesthetic Used 4% Lidocaine 4% Lidocaine Solution Solution 52. R heel -Current Size (cm) - Length 2.2 -Current Size (cm) - Width 1.8 -Current Size (cm) - Depth 0.1 -Total Square Cm 3.96 -Photo Taken No -Exudate Amt Medium -Exudate Type Serosanguineous -Wound Margin Distinct, Outline Attached -Granulation Amt Large (67-100%) -Granulation Quality Sutton,Red -Necrosis Amt Small (1-33%) -Necrotic Tissue Type Adherent Slough -Structure Exposed N/A -Texture (Susy-wound Skin Appearance) Scarring -Moisture (Susy-wound Skin Appearance) Dry/Scaly -Color (Susy-wound Skin Appearance) Hemosiderin Staining -Temperature (Susy-wound Skin No Abnormality Appearance) (Pt Warm) -Tenderness on Palpation (Susy-wound No Skin Appearance) -Ulcer Cleansing Soap and Water -Foul Odor after Cleansing No -Anesthetic Used 4% Lidocaine Solution #35 L Stump -Combined with other wound No -Current Size (cm) - Length 1 1.3 -Current Size (cm) - Width 2.2 2.4 -Current Size (cm) - Depth 0.5 0.5 -Total Square Cm 2.2 3.12 -Photo Taken No -Tunneling No -Undermining/Tunneling No -Circular Undermining No -Exudate Amt Medium Medium -Exudate Type Serosanguineous Serosanguineous -Wound Margin Thickened Thickened & Rolled Under -Granulation Amt Large (67-100%) Medium (34-66%) -Granulation Quality Pale Sutton -Slough/Fibrin Yes -Necrosis Amt Small (1-33%) Large (67-100%) -Necrotic Tissue Type Adherent Slough Adherent Slough -Structure Exposed N/A N/A -Texture (Susy-wound Skin Appearance) Scarring Assessed -Moisture (Susy-wound Skin Appearance) Dry/Scaly Dry/Scaly -Color (Susy-wound Skin Appearance) Hemosiderin Assessed Staining -Temperature (Susy-wound Skin No Abnormality No Abnormality Appearance) (Pt Warm) (Pt Warm) -Tenderness on Palpation (Susy-wound No No Skin Appearance) -Ulcer Cleansing Soap and Water Wound Cleanser -Foul Odor after Cleansing No No -Anesthetic Used 4% Lidocaine 4% Lidocaine Solution Solution Lower Limb Edema Present Yes Right Calf (cm) 43.7 51.5 Right Ankle (cm) 28.6 31.2 WC - Nurse 2 - General Ulcer CM Notes Start: 03/20/21 11:18 Freq: Status: Active Protocol: Activity Type Activity Date Activity User E-Sign Co-Sign Detail Recorded Client Recorded Date Recorded By Document 03/20/21 11:39 NORRIS [id number] 03/20/21 11:49 JF Document 04/03/21 12:12 [id number] 04/03/21 12:19 JF Edit Result 04/03/21 12:12 JF (1) [id number] 04/04/21 07:04 Document 04/10/21 13:53 NORRIS [id number] 04/10/21 14:01 JF (1) #35 L Stump - Debridement - Subq, 20sq cm No => Yes 03/20/21 04/03/21 04/10/21 11:39 12:12 13:53 Wound Center Nurse 2 56. R plantar lateral foot -Time 13:57 -Correct Patient Yes -Correct Side, Site, Position Yes -Correct Procedure Yes -Procedure Performed Yes -Type of Procedure Debridement -Clinical Debridement Subcutaneous -Tissue Removed Subcutaneous -Post Debridement (cm) - Length 2 -Post Debridement (cm) - Width 1.4 -Post Debridement (cm) - Depth 0.7 -Total Square (Post) (cm) 2.8 -Area of Debridement (cm) - Length 2 -Area of Debridement (cm) - Width 1.4 -Total Square (Area) (cm) 2.8 -Tunneling No -Undermining/Tunneling No -Circular Undermining No -Wound/Ulcer Outcome Not Healed -Ulcer Cleansing Rinsed/ Irrigated with Saline -Foul Odor after Cleansing No -Bioengineered Tissue No -Bleeding Controlled with Pressure -Offloading Yes -Type of Offloading Surgical Shoe -Treatment Response Procedure Tolerated Well -Debridement - Subq, 1st 20sq cm No 55. Superior of L stump ulcer -Time 12:13 -Correct Patient Yes No -Correct Side, Site, Position Yes No -Correct Procedure Yes No -Procedure Performed Yes No -Type of Procedure Debridement -Clinical Debridement Subcutaneous -Tissue Removed Subcutaneous -Post Debridement (cm) - Length 0.3 -Post Debridement (cm) - Width 0.3 -Post Debridement (cm) - Depth 2.2 -Total Square (Post) (cm) 0.09 -Area of Debridement (cm) - Length 0.3 -Area of Debridement (cm) - Width 0.3 -Total Square (Area) (cm) 0.09 -Tunneling No -Undermining/Tunneling No -Circular Undermining No -Wound/Ulcer Outcome Not Healed Not Healed -Ulcer Cleansing Rinsed/ Irrigated with Saline -Foul Odor after Cleansing No -Bioengineered Tissue No -Bleeding Controlled with Pressure -Offloading No -Treatment Response Procedure Tolerated Well -Debridement - Subq, 1st 20sq cm No 54. L stump lateral -Time 12:13 -Correct Patient Yes No -Correct Side, Site, Position Yes No -Correct Procedure Yes No -Procedure Performed Yes No -Type of Procedure Debridement -Clinical Debridement Subcutaneous -Tissue Removed Subcutaneous -Post Debridement (cm) - Length 1.5 -Post Debridement (cm) - Width 2.0 -Post Debridement (cm) - Depth 0.6 -Total Square (Post) (cm) 3.00 -Area of Debridement (cm) - Length 1.5 -Area of Debridement (cm) - Width 2.0 -Total Square (Area) (cm) 3.00 -Tunneling No -Undermining/Tunneling No -Circular Undermining No -Wound/Ulcer Outcome Not Healed Not Healed -Ulcer Cleansing Rinsed/ Irrigated with Saline -Foul Odor after Cleansing No -Bioengineered Tissue No -Bleeding Controlled with Pressure -Offloading No -Treatment Response Procedure Tolerated Well -Debridement - Subq, 1st 20sq cm No 53-right plantar heel -Time 11:41 12:14 13:58 -Correct Patient Yes Yes Yes -Correct Side, Site, Position Yes Yes Yes -Correct Procedure Yes Yes Yes -Procedure Performed Yes Yes Yes -Type of Procedure Debridement Debridement Debridement -Clinical Debridement Subcutaneous Subcutaneous Subcutaneous -Tissue Removed Subcutaneous Subcutaneous Subcutaneous -Post Debridement (cm) - Length 2.5 2.2 2.5 -Post Debridement (cm) - Width 1.3 1.8 1 -Post Debridement (cm) - Depth 0.1 0.1 0.1 -Total Square (Post) (cm) 3.25 3.96 2.5 -Area of Debridement (cm) - Length 2.5 2.2 2.5 -Area of Debridement (cm) - Width 1.3 1.8 1.0 -Total Square (Area) (cm) 3.25 3.96 2.50 -Tunneling No No No -Undermining/Tunneling No No No -Circular Undermining No No No -Wound/Ulcer Outcome Not Healed Not Healed Not Healed -Ulcer Cleansing Rinsed/ Rinsed/ Rinsed/ Irrigated with Irrigated with Irrigated with Saline Saline Saline -Foul Odor after Cleansing No No No -Bioengineered Tissue No No No -Bleeding Controlled with Pressure Pressure Pressure -Offloading Yes Yes Yes -Type of Offloading Surgical Shoe Surgical Shoe Surgical Shoe -Treatment Response Procedure Procedure Procedure Tolerated Well Tolerated Well Tolerated Well -Debridement - Subq, 1st 20sq cm Yes No Yes 52. R heel -Time 11:41 12:15 -Correct Patient Yes Yes -Correct Side, Site, Position Yes Yes -Correct Procedure Yes Yes -Procedure Performed Yes Yes -Type of Procedure Debridement Debridement -Clinical Debridement Subcutaneous Subcutaneous -Tissue Removed Subcutaneous Subcutaneous -Post Debridement (cm) - Length 2.3 2.2 -Post Debridement (cm) - Width 1.8 1.8 -Post Debridement (cm) - Depth 0.1 0.1 -Total Square (Post) (cm) 4.14 3.96 -Area of Debridement (cm) - Length 2.3 2.2 -Area of Debridement (cm) - Width 1.8 1.8 -Total Square (Area) (cm) 4.14 3.96 -Tunneling No No -Undermining/Tunneling No No -Circular Undermining No No -Wound/Ulcer Outcome Not Healed Not Healed -Ulcer Cleansing Rinsed/ Rinsed/ Irrigated with Irrigated with Saline Saline -Foul Odor after Cleansing No No -Bioengineered Tissue No No -Bleeding Controlled with Pressure -Offloading Yes Yes -Type of Offloading Surgical Shoe Surgical Shoe -Treatment Response Procedure Procedure Tolerated Well Tolerated Well -Debridement - Subq, 1st 20sq cm No No #35 L Stump -Time 11:41 12:16 -Correct Patient Yes Yes No -Correct Side, Site, Position Yes Yes No -Correct Procedure Yes Yes No -Procedure Performed Yes Yes No -Type of Procedure Debridement Debridement -Clinical Debridement Subcutaneous Subcutaneous -Tissue Removed Subcutaneous Subcutaneous -Post Debridement (cm) - Length 1.1 2.8 -Post Debridement (cm) - Width 2.2 3 -Post Debridement (cm) - Depth 0.5 0.3 -Total Square (Post) (cm) 2.42 8.4 -Area of Debridement (cm) - Length 1.1 2.8 -Area of Debridement (cm) - Width 2.2 3 -Total Square (Area) (cm) 2.42 8.4 -Tunneling No No -Undermining/Tunneling No No -Circular Undermining No No -Wound/Ulcer Outcome Not Healed Not Healed Not Healed -Ulcer Cleansing Rinsed/ Rinsed/ Irrigated with Irrigated with Saline Saline -Foul Odor after Cleansing No No -Bioengineered Tissue No No -Bleeding Controlled with Pressure Pressure -Offloading No No -Treatment Response Procedure Procedure Tolerated Well Tolerated Well -Debridement - Subq, 1st 20sq cm No Yes Pain Scale: 0-10 Numeric Is Patient Pain Free? Yes Yes Yes WC - Nurse 3 - General Ulcer D/C NN Start: 03/20/21 11:18 Freq: Status: Active Protocol: Activity Type Activity Date Activity User E-Sign Co-Sign Detail Recorded Client Recorded Date Recorded By Document 03/20/21 11:51 RB [id number] 03/20/21 11:55 RB Document 04/03/21 12:07 DL [id number] 04/03/21 12:10 DL Document 04/10/21 14:14 RB [id number] 04/10/21 14:16 RB 03/20/21 04/03/21 04/10/21 11:51 12:07 14:14 Wound Care Nurse 3 56. R plantar lateral foot -Ulcer Cleansing Rinsed/ Irrigated with Saline -Other Dressing dakins moistened gauze -Primary Dressing Covered/Secured with Dry Gauze,Dry Gauze & Roll Gauze,Secured with Tape 55. Superior of L stump ulcer -Ulcer Cleansing Soap and Water -Foul Odor after Cleansing No -Other Dressing Dakins -Primary Dressing Covered/Secured with Dry Gauze & Roll Gauze, Secured with Tape 54. L stump lateral -Ulcer Cleansing Soap and Water -Foul Odor after Cleansing No -Other Dressing Dakins -Primary Dressing Covered/Secured with Dry Gauze & Roll Gauze, Secured with Tape 53-right plantar heel -Ulcer Cleansing Soap and Water -Foul Odor after Cleansing No -Other Dressing dakins 0.25% dakins dakins moistened guaze moistened gauze -Primary Dressing Covered/Secured with Dry Gauze,Dry Dry Gauze & Dry Gauze,Dry Gauze & Roll Roll Gauze, Gauze & Roll Gauze,Secured Secured with Gauze,Secured with Tape Tape with Tape -Other Covering abd 52. R heel -Ulcer Cleansing Soap and Water -Foul Odor after Cleansing No -Other Dressing dakin moistened dakins gauze -Primary Dressing Covered/Secured with Dry Gauze,Dry Dry Gauze & Gauze & Roll Roll Gauze, Gauze,Secured Secured with with Tape Tape #35 L Stump -Ulcer Cleansing Soap and Water -Foul Odor after Cleansing No -Other Dressing dakin moistened Dakins gauze -Primary Dressing Covered/Secured with Dry Gauze,Dry Dry Gauze & Gauze & Roll Roll Gauze, Gauze,Secured Secured with with Tape Tape Right -Compression Wrap Mateus Wrap -Other farrow wrap tubigrip tubigrip , mateus circaid Left -Other single layer tubigrip tubigrip then mateus Treatment Response Procedure Procedure Tolerated Well Tolerated Well Pain Scale: 0-10 Numeric Is Patient Pain Free? Yes Yes Yes WC - Visit Discharge Discharge Condition Stable Stable Stable Ambulatory Status Wheelchair Wheelchair Wheelchair Transportation [facility] Medication Reconcilliation completed & No No provided to patient/care provider Clinical Summary of Care Provided Yes Yes Facility Type Home Health Orders Sent Yes Assessment/Plan Assessment/Plan (1) Ulcer of left lower extremity with fat layer exposed: CODE(S): L97.922 - Non-pressure chronic ulcer of unspecified part of left lower leg with fat layer exposed (2) Ulcer of right foot with fat layer exposed: CODE(S): L97.512 - Non-pressure chronic ulcer of other part of right foot with fat layer exposed (3) Delayed wound healing: CODE(S): T14.8XXD - Other injury of unspecified body region, subsequent encounter (4) Type 2 diabetes mellitus with diabetic polyneuropathy: CODE(S): E11.42 - Type 2 diabetes mellitus with diabetic polyneuropathy (5) Localized edema: CODE(S): R60.0 - Localized edema (6) Lymphedema: CODE(S): I89.0 - Lymphedema, not elsewhere classified (7) Cellulitis of right lower limb: CODE(S): L03.115 - Cellulitis of right lower limb (8) Osteomyelitis: CODE(S): M86.9 - Osteomyelitis, unspecified PLAN: I reviewed and discussed his case. His ulcer were debrided to right foot x 2 as noted. He was reassured no local signs of infection are seen on right lower extremity. Updated right foot xray was ordered. To change dressing daily with Aquacel ag to right foot ulcers. To wash the wound with antibacterial soap and water. I encourage routine showering at least once a week if possible. I am concerned about his new deep probing ulcers to the left stump site with a work-up in process for osteomyelitis or deep space infection. There is no purulence on expression streaking erythema however the probing to deep structures there is concern. After debridement and irrigation, wound cultures were obtained including aerobic, anaerobic, and MRSA PCR. So far with Pseudomonas, anaerobic cocci, MRSA negative, Citrobacter, and coag negative staph. He is on cefdinir and Flagyl. A leg x-ray was ordered last week and he did not get this yet. I also updated his lab order for CBC, CMP, ESR, C- reactive protein. These results are still pending as he did not get this yet. His A1c last on file was 7.9%. I recommend he follow-up with Dr. Pompa due to his changes to his surgical site and suspected deeper tissue involvement. He is here this afternoon to see him. To continue with right lower extremity surgical shoe. To continue with automated wheelchair. To take care to avoid pressure to his right heel ulcer site. To continue to optimize healing with improved glycemic index, continued weight reduction, and well-balanced whole food nutrients. To continue with edema management including his compression wraps and also lymphedema pumps. It is noted he has not been able to elevate as much this past week and has increased edema. Additional Mateus wrap was applied prior to Tubigrip application splint to help reduce stump edema. He was specifically advised apply the Mateus wrap to the forefoot to address his lymphedema at this level which is an ongoing issue. To reduce salt in diet; this was discussed. He has resumed Lasix and was advised to continue his advised by his primary care physician. To continue Lac-Hydrin application to dry skin on legs. It is noted that he completed course of advanced wound healing product application, epi fix. He was advised to return to clinic in two weeks for right foot. Note: [employer] speech recognition tow driver software was used to create portions of this document. Sound-alike and misspelled words, as well as other tow driver errors may be contained in the documentation.
--- NOTE | 2021-04-11 00:38 | PN.PCM_ITS ---
History of Present Illness Date of Service: 04/10/21 Chief Complaint: Nonhealing ulcers left BKA stump History of Wound: Patient known to me. 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 I left a part of it opened anteriorly because of the severity of the localized edema. Pathology was negative for carcinoma. [facility], and the anterior ulcer showed slow but persistent growth, but it did not heal probably from persistent swelling in the stump. Recently he developed more ulcerations on the stump. Recent wound culture on 04/03/21 showed Pseudomonas aeroginosa, Citrobacter braaki, Coag negative Staph, and Anaerobic cocci. He was started on Antibiotics. I was asked to evaluate him for surgical options for treatment. Progress of Wound: stable right Worsening status with newer ulcers left leg stump Objective Data Objective Data Vital Signs: Vital Signs Temp Pulse Resp BP 97.7 F L 66 18 165/61 H 04/10/21 13:34 04/10/21 13:34 04/10/21 13:34 04/10/21 13:34 Lab / Micro Data Attestation: I reviewed the patient's lab results. Micro: Microbiology 04/03/21 Unknown Tissue Ulcer - Leg Gram Stain - Final 04/03/21 Unknown Tissue Ulcer - Leg Wound Culture - Final Pseudomonas aeroginosa Citrobacter braakii Coag Negative Staph 04/03/21 Unknown Tissue Ulcer - Leg Anaerobic Culture - Final Anaerobic cocci Charges/Coding Procedures Integumentary [id number]: [id number] Angelica subq tissue 20 sq cm/< (ICD-10 - T87.89, M86.9, R60.0, E11.9, A49.02) Debridement Note Debridement Note Wound debrided: #35 Left BKA stump ulcer, anterior Laterality: Left Wound Grade/Stage: 2. Type of Debridement: Excisional debridement Anesthesia Used: 4% Lidocaine Solution Depth: Down to and including healthy tissue and in the subcutaneous layer Percentage of wound debrided: 100 Instrument Used: 5mm curette Tissue Removed: subcutaneous tissue. Severity: Fat Layer Exposed Amount of bleeding with debridement: Mild Bleeding Controlled with: Compression and gauze Patient tolerated procedure: Patient tolerated procedure well Post-Debridement Measurements and Additional Note: Post-Debridement Measurements/Treatment - Nurse 1 - General Ulcer Assessment Start: 03/20/21 11:18 Freq: Status: Active Protocol: [email or web address].LOWEXT Activity Type Activity Date Activity User E-Sign Co-Sign Detail Recorded Client Recorded Date Recorded By Document 03/20/21 11:19 DL [id number] 03/20/21 11:36 DL Document 04/03/21 11:23 RB [id number] 04/03/21 11:34 RB Document 04/10/21 13:34 RB [id number] 04/10/21 13:46 RB 03/20/21 04/03/21 04/10/21 11:19 11:23 13:34 - Today's Visit Information Type of service Follow-up Visit Follow-up Visit Follow-up Visit (Physician/BPM SOLUTION ARCHITECT (Physician/BPM SOLUTION ARCHITECT (Physician/BPM SOLUTION ARCHITECT ) ) ) Arrival Mode Wheelchair Wheelchair Wheelchair Transfer Assistance None None None Patient Identification Verified (Name & Yes Yes Yes ) Patient Requires Transmission-Based No No Precautions Finger Stick Blood Sugar(mg/dl) (if 156 140 indicated): Blood Sugar Stated by Stated by Patient Patient Vital Signs Temperature (97.8 F-99.1 F) 97.6 F L 98 F 97.7 F L Temperature Source Temporal Temporal Temporal Pulse Rate (60-100) 67 66 66 Pulse Location Monitor Monitor Monitor Respiratory Rate (12-18) 22 H 18 18 Respiratory rate source Observation Observation Observation Blood Pressure (90/60-120/80) 156/61 H 149/52 H 165/61 H Blood Pressure Mean (mm Hg) 92 84 95 Source Monitor Monitor Monitor Position Semi-Fowlers Semi-Fowlers Blood Pressure Location Left Arm Left Arm History Since Last Visit- (Skip if this is Patient's initial visit) Have you changed medications since your No No No last visit? Any new allergies or adverse reactions No No No Had a fall/change in ADL's that may No No No increase risk of falls Signs or symptoms of abuse and/or No No No neglect since last visit Have you been in the hospital since your No No No last visit? Has dressing in place as prescribed Yes Yes Yes Has compression in place as prescribed Yes Yes Yes Has offloadiing in place as prescribed Yes No Yes Experienced any changes in pain level or No No No management Left Footwear No Footwear Right Footwear No Footwear Pain Scale: 0-10 Numeric Is Patient Pain Free? Yes Yes - Nurse 1 - General Ulcer Measurement Start: 03/20/21 11:18 Freq: Status: Active Protocol: Activity Type Activity Date Activity User E-Sign Co-Sign Detail Recorded Client Recorded Date Recorded By Document 03/20/21 11:19 DL [id number] 03/20/21 11:36 DL Document 04/03/21 11:23 RB [id number] 04/03/21 11:34 RB Document 04/10/21 13:34 RB [id number] 04/10/21 13:46 RB 03/20/21 04/03/21 04/10/21 11:19 11:23 13:34 Wound Center Nurse 1 56. R plantar lateral foot -Combined with other wound No -Current Size (cm) - Length 2 -Current Size (cm) - Width 1.3 -Current Size (cm) - Depth 0.2 -Total Square Cm 2.6 -Photo Taken Yes -Tunneling No -Undermining/Tunneling No -Circular Undermining No -Exudate Amt Medium -Exudate Type Serosanguineous -Wound Margin Thickened & Rolled Under -Granulation Amt Medium (34-66%) -Granulation Quality [place] -Slough/Fibrin Yes -Necrosis Amt Large (67-100%) -Necrotic Tissue Type Adherent Slough -Structure Exposed N/A -Texture (Susy-wound Skin Appearance) Callus -Moisture (Susy-wound Skin Appearance) Assessed -Color (Susy-wound Skin Appearance) Assessed -Temperature (Susy-wound Skin No Abnormality Appearance) (Pt Warm) -Tenderness on Palpation (Susy-wound No Skin Appearance) -Ulcer Cleansing Wound Cleanser -Foul Odor after Cleansing No -Anesthetic Used 4% Lidocaine Solution 55. Superior of L stump ulcer -Combined with other wound No No -Current Size (cm) - Length 0.2 0.1 -Current Size (cm) - Width 0.3 0.1 -Current Size (cm) - Depth 2.2 1 -Total Square Cm 0.06 0.01 -Tunneling No No -Undermining/Tunneling No No -Circular Undermining No No -Exudate Amt Large Large -Exudate Type Purulent Serosanguineous -Wound Margin Distinct, Distinct, Outline Outline Attached Attached -Granulation Amt Medium (34-66%) Medium (34-66%) -Granulation Quality [place] -Slough/Fibrin Yes Yes -Necrosis Amt Large (67-100%) Medium (34-66%) -Necrotic Tissue Type Adherent Slough Adherent Slough -Structure Exposed N/A N/A -Texture (Susy-wound Skin Appearance) Assessed Assessed -Moisture (Susy-wound Skin Appearance) Assessed Assessed,Dry/ Scaly -Color (Susy-wound Skin Appearance) Assessed Assessed -Temperature (Susy-wound Skin No Abnormality No Abnormality Appearance) (Pt Warm) (Pt Warm) -Tenderness on Palpation (Susy-wound No No Skin Appearance) -Ulcer Cleansing Wound Cleanser Wound Cleanser -Foul Odor after Cleansing No No -Anesthetic Used 4% Lidocaine 4% Lidocaine Solution Solution 54. L stump lateral -Combined with other wound No No -Current Size (cm) - Length 1.4 1.4 -Current Size (cm) - Width 1.9 1.3 -Current Size (cm) - Depth 0.6 0.7 -Total Square Cm 2.66 1.82 -Tunneling No No -Undermining/Tunneling No No -Circular Undermining No No -Exudate Amt Large Large -Exudate Type Purulent Serosanguineous -Wound Margin Distinct, Thickened & Outline Rolled Under Attached -Granulation Amt Medium (34-66%) Medium (34-66%) -Granulation Quality [place] -Slough/Fibrin Yes Yes -Necrosis Amt Large (67-100%) Small (1-33%) -Necrotic Tissue Type Adherent Slough Adherent Slough -Structure Exposed N/A N/A -Texture (Susy-wound Skin Appearance) Assessed Assessed -Moisture (Susy-wound Skin Appearance) Assessed Dry/Scaly -Color (Susy-wound Skin Appearance) Assessed Assessed -Temperature (Susy-wound Skin No Abnormality No Abnormality Appearance) (Pt Warm) (Pt Warm) -Tenderness on Palpation (Susy-wound No No Skin Appearance) -Ulcer Cleansing Wound Cleanser Wound Cleanser -Foul Odor after Cleansing Yes, Due to No Product Use -Anesthetic Used 4% Lidocaine 4% Lidocaine Solution Solution 53-right plantar heel -Combined with other wound No -Current Size (cm) - Length 2.5 2.4 -Current Size (cm) - Width 1.2 1 -Current Size (cm) - Depth 0.1 0.1 -Total Square Cm 3.00 2.4 -Photo Taken No -Tunneling No -Undermining/Tunneling No -Circular Undermining No -Exudate Amt Medium Large -Exudate Type Serosanguineous Serosanguineous -Wound Margin Distinct, Thickened & Outline Rolled Under Attached -Granulation Amt Large (67-100%) Medium (34-66%) -Granulation Quality [place] -Slough/Fibrin Yes -Necrosis Amt Small (1-33%) Large (67-100%) -Necrotic Tissue Type Adherent Slough Adherent Slough -Structure Exposed N/A N/A -Texture (Susy-wound Skin Appearance) Scarring Assessed -Moisture (Susy-wound Skin Appearance) Dry/Scaly Dry/Scaly -Color (Susy-wound Skin Appearance) Hemosiderin Assessed Staining -Temperature (Susy-wound Skin No Abnormality No Abnormality Appearance) (Pt Warm) (Pt Warm) -Tenderness on Palpation (Susy-wound No No Skin Appearance) -Ulcer Cleansing Soap and Water Wound Cleanser -Foul Odor after Cleansing No No -Anesthetic Used 4% Lidocaine 4% Lidocaine Solution Solution 52. R heel -Current Size (cm) - Length 2.2 -Current Size (cm) - Width 1.8 -Current Size (cm) - Depth 0.1 -Total Square Cm 3.96 -Photo Taken No -Exudate Amt Medium -Exudate Type Serosanguineous -Wound Margin Distinct, Outline Attached -Granulation Amt Large (67-100%) -Granulation Quality [place],Red -Necrosis Amt Small (1-33%) -Necrotic Tissue Type Adherent Slough -Structure Exposed N/A -Texture (Susy-wound Skin Appearance) Scarring -Moisture (Susy-wound Skin Appearance) Dry/Scaly -Color (Susy-wound Skin Appearance) Hemosiderin Staining -Temperature (Susy-wound Skin No Abnormality Appearance) (Pt Warm) -Tenderness on Palpation (Susy-wound No Skin Appearance) -Ulcer Cleansing Soap and Water -Foul Odor after Cleansing No -Anesthetic Used 4% Lidocaine Solution #35 L Stump -Combined with other wound No -Current Size (cm) - Length 1 1.3 -Current Size (cm) - Width 2.2 2.4 -Current Size (cm) - Depth 0.5 0.5 -Total Square Cm 2.2 3.12 -Photo Taken No -Tunneling No -Undermining/Tunneling No -Circular Undermining No -Exudate Amt Medium Medium -Exudate Type Serosanguineous Serosanguineous -Wound Margin Thickened Thickened & Rolled Under -Granulation Amt Large (67-100%) Medium (34-66%) -Granulation Quality [place] -Slough/Fibrin Yes -Necrosis Amt Small (1-33%) Large (67-100%) -Necrotic Tissue Type Adherent Slough Adherent Slough -Structure Exposed N/A N/A -Texture (Susy-wound Skin Appearance) Scarring Assessed -Moisture (Susy-wound Skin Appearance) Dry/Scaly Dry/Scaly -Color (Susy-wound Skin Appearance) Hemosiderin Assessed Staining -Temperature (Susy-wound Skin No Abnormality No Abnormality Appearance) (Pt Warm) (Pt Warm) -Tenderness on Palpation (Susy-wound No No Skin Appearance) -Ulcer Cleansing Soap and Water Wound Cleanser -Foul Odor after Cleansing No No -Anesthetic Used 4% Lidocaine 4% Lidocaine Solution Solution Lower Limb Edema Present Yes Right Calf (cm) 43.7 51.5 Right Ankle (cm) 28.6 31.2 WC - Nurse 2 - General Ulcer CM Notes Start: 03/20/21 11:18 Freq: Status: Active Protocol: Activity Type Activity Date Activity User E-Sign Co-Sign Detail Recorded Client Recorded Date Recorded By Document 03/20/21 11:39 [id number] 03/20/21 11:49 JF Document 04/03/21 12:12 [id number] 04/03/21 12:19 Edit Result 04/03/21 12:12 JF (1) [id number] 04/04/21 07:04 Document 04/10/21 13:53 [id number] 04/10/21 14:01 JF Document 04/10/21 14:20 [id number] 04/10/21 14:27 JF (1) #35 L Stump - Debridement - Subq, 1st 20sq cm No => Yes 03/20/21 04/03/21 04/10/21 11:39 12:12 13:53 Wound Center Nurse 2 56. R plantar lateral foot -Time 13:57 -Correct Patient Yes -Correct Side, Site, Position Yes -Correct Procedure Yes -Procedure Performed Yes -Type of Procedure Debridement -Clinical Debridement Subcutaneous -Tissue Removed Subcutaneous -Post Debridement (cm) - Length 2 -Post Debridement (cm) - Width 1.4 -Post Debridement (cm) - Depth 0.7 -Total Square (Post) (cm) 2.8 -Area of Debridement (cm) - Length 2 -Area of Debridement (cm) - Width 1.4 -Total Square (Area) (cm) 2.8 -Tunneling No -Undermining/Tunneling No -Circular Undermining No -Wound/Ulcer Outcome Not Healed -Ulcer Cleansing Rinsed/ Irrigated with Saline -Foul Odor after Cleansing No -Bioengineered Tissue No -Bleeding Controlled with Pressure -Offloading Yes -Type of Offloading Surgical Shoe -Treatment Response Procedure Tolerated Well -Debridement - Subq, 1st 20sq cm No 55. Superior of L stump ulcer -Time 12:13 -Correct Patient Yes No -Correct Side, Site, Position Yes No -Correct Procedure Yes No -Procedure Performed Yes No -Type of Procedure Debridement -Clinical Debridement Subcutaneous -Tissue Removed Subcutaneous -Post Debridement (cm) - Length 0.3 -Post Debridement (cm) - Width 0.3 -Post Debridement (cm) - Depth 2.2 -Total Square (Post) (cm) 0.09 -Area of Debridement (cm) - Length 0.3 -Area of Debridement (cm) - Width 0.3 -Total Square (Area) (cm) 0.09 -Tunneling No -Undermining/Tunneling No -Circular Undermining No -Wound/Ulcer Outcome Not Healed Not Healed -Ulcer Cleansing Rinsed/ Irrigated with Saline -Foul Odor after Cleansing No -Bioengineered Tissue No -Bleeding Controlled with Pressure -Offloading No -Treatment Response Procedure Tolerated Well -Debridement - Subq, 1st 20sq cm No 54. L stump lateral -Time 12:13 -Correct Patient Yes No -Correct Side, Site, Position Yes No -Correct Procedure Yes No -Procedure Performed Yes No -Type of Procedure Debridement -Clinical Debridement Subcutaneous -Tissue Removed Subcutaneous -Post Debridement (cm) - Length 1.5 -Post Debridement (cm) - Width 2.0 -Post Debridement (cm) - Depth 0.6 -Total Square (Post) (cm) 3.00 -Area of Debridement (cm) - Length 1.5 -Area of Debridement (cm) - Width 2.0 -Total Square (Area) (cm) 3.00 -Tunneling No -Undermining/Tunneling No -Circular Undermining No -Wound/Ulcer Outcome Not Healed Not Healed -Ulcer Cleansing Rinsed/ Irrigated with Saline -Foul Odor after Cleansing No -Bioengineered Tissue No -Bleeding Controlled with Pressure -Offloading No -Treatment Response Procedure Tolerated Well -Debridement - Subq, 1st 20sq cm No 53-right plantar heel -Time 11:41 12:14 13:58 -Correct Patient Yes Yes Yes -Correct Side, Site, Position Yes Yes Yes -Correct Procedure Yes Yes Yes -Procedure Performed Yes Yes Yes -Type of Procedure Debridement Debridement Debridement -Clinical Debridement Subcutaneous Subcutaneous Subcutaneous -Tissue Removed Subcutaneous Subcutaneous Subcutaneous -Post Debridement (cm) - Length 2.5 2.2 2.5 -Post Debridement (cm) - Width 1.3 1.8 1 -Post Debridement (cm) - Depth 0.1 0.1 0.1 -Total Square (Post) (cm) 3.25 3.96 2.5 -Area of Debridement (cm) - Length 2.5 2.2 2.5 -Area of Debridement (cm) - Width 1.3 1.8 1.0 -Total Square (Area) (cm) 3.25 3.96 2.50 -Tunneling No No No -Undermining/Tunneling No No No -Circular Undermining No No No -Wound/Ulcer Outcome Not Healed Not Healed Not Healed -Ulcer Cleansing Rinsed/ Rinsed/ Rinsed/ Irrigated with Irrigated with Irrigated with Saline Saline Saline -Foul Odor after Cleansing No No No -Bioengineered Tissue No No No -Bleeding Controlled with Pressure Pressure Pressure -Offloading Yes Yes Yes -Type of Offloading Surgical Shoe Surgical Shoe Surgical Shoe -Treatment Response Procedure Procedure Procedure Tolerated Well Tolerated Well Tolerated Well -Debridement - Subq, 1st 20sq cm Yes No Yes 52. R heel -Time 11:41 12:15 -Correct Patient Yes Yes -Correct Side, Site, Position Yes Yes -Correct Procedure Yes Yes -Procedure Performed Yes Yes -Type of Procedure Debridement Debridement -Clinical Debridement Subcutaneous Subcutaneous -Tissue Removed Subcutaneous Subcutaneous -Post Debridement (cm) - Length 2.3 2.2 -Post Debridement (cm) - Width 1.8 1.8 -Post Debridement (cm) - Depth 0.1 0.1 -Total Square (Post) (cm) 4.14 3.96 -Area of Debridement (cm) - Length 2.3 2.2 -Area of Debridement (cm) - Width 1.8 1.8 -Total Square (Area) (cm) 4.14 3.96 -Tunneling No No -Undermining/Tunneling No No -Circular Undermining No No -Wound/Ulcer Outcome Not Healed Not Healed -Ulcer Cleansing Rinsed/ Rinsed/ Irrigated with Irrigated with Saline Saline -Foul Odor after Cleansing No No -Bioengineered Tissue No No -Bleeding Controlled with Pressure -Offloading Yes Yes -Type of Offloading Surgical Shoe Surgical Shoe -Treatment Response Procedure Procedure Tolerated Well Tolerated Well -Debridement - Subq, 1st 20sq cm No No #35 L Stump -Time 11:41 12:16 -Correct Patient Yes Yes No -Correct Side, Site, Position Yes Yes No -Correct Procedure Yes Yes No -Procedure Performed Yes Yes No -Type of Procedure Debridement Debridement -Clinical Debridement Subcutaneous Subcutaneous -Tissue Removed Subcutaneous Subcutaneous -Post Debridement (cm) - Length 1.1 2.8 -Post Debridement (cm) - Width 2.2 3 -Post Debridement (cm) - Depth 0.5 0.3 -Total Square (Post) (cm) 2.42 8.4 -Area of Debridement (cm) - Length 1.1 2.8 -Area of Debridement (cm) - Width 2.2 3 -Total Square (Area) (cm) 2.42 8.4 -Tunneling No No -Undermining/Tunneling No No -Circular Undermining No No -Wound/Ulcer Outcome Not Healed Not Healed Not Healed -Ulcer Cleansing Rinsed/ Rinsed/ Irrigated with Irrigated with Saline Saline -Foul Odor after Cleansing No No -Bioengineered Tissue No No -Bleeding Controlled with Pressure Pressure -Offloading No No -Treatment Response Procedure Procedure Tolerated Well Tolerated Well -Debridement - Subq, 1st 20sq cm No Yes Pain Scale: 0-10 Numeric Is Patient Pain Free? Yes Yes Yes 04/10/21 14:20 Wound Center Nurse 2 56. R plantar lateral foot -Time -Correct Patient -Correct Side, Site, Position -Correct Procedure -Procedure Performed -Type of Procedure -Clinical Debridement -Tissue Removed -Post Debridement (cm) - Length -Post Debridement (cm) - Width -Post Debridement (cm) - Depth -Total Square (Post) (cm) -Area of Debridement (cm) - Length -Area of Debridement (cm) - Width -Total Square (Area) (cm) -Tunneling -Undermining/Tunneling -Circular Undermining -Wound/Ulcer Outcome -Ulcer Cleansing -Foul Odor after Cleansing -Bioengineered Tissue -Bleeding Controlled with -Offloading -Type of Offloading -Treatment Response -Debridement - Subq, 20sq cm 55. Superior of L stump ulcer -Time 14:22 -Correct Patient Yes -Correct Side, Site, Position Yes -Correct Procedure Yes -Procedure Performed Yes -Type of Procedure Debridement -Clinical Debridement Subcutaneous -Tissue Removed Subcutaneous -Post Debridement (cm) - Length 0.2 -Post Debridement (cm) - Width 0.2 -Post Debridement (cm) - Depth 2.2 -Total Square (Post) (cm) 0.04 -Area of Debridement (cm) - Length 0.2 -Area of Debridement (cm) - Width 2.2 -Total Square (Area) (cm) 0.44 -Tunneling No -Undermining/Tunneling No -Circular Undermining No -Wound/Ulcer Outcome Not Healed -Ulcer Cleansing Rinsed/ Irrigated with Saline -Foul Odor after Cleansing No -Bioengineered Tissue No -Bleeding Controlled with Pressure -Offloading No -Treatment Response Procedure Tolerated Well -Debridement - Subq, 20sq cm No 54. L stump lateral -Time 14:23 -Correct Patient Yes -Correct Side, Site, Position Yes -Correct Procedure Yes -Procedure Performed Yes -Type of Procedure Debridement -Clinical Debridement Subcutaneous -Tissue Removed Subcutaneous -Post Debridement (cm) - Length 1.5 -Post Debridement (cm) - Width 1.3 -Post Debridement (cm) - Depth 0.7 -Total Square (Post) (cm) 1.95 -Area of Debridement (cm) - Length 1.5 -Area of Debridement (cm) - Width 1.3 -Total Square (Area) (cm) 1.95 -Tunneling No -Undermining/Tunneling No -Circular Undermining No -Wound/Ulcer Outcome Not Healed -Ulcer Cleansing Rinsed/ Irrigated with Saline -Foul Odor after Cleansing No -Bioengineered Tissue No -Bleeding Controlled with Pressure,Silver Nitrate -Offloading -Treatment Response Procedure Tolerated Well -Debridement - Subq, 20sq cm Yes 53-right plantar heel -Time -Correct Patient -Correct Side, Site, Position -Correct Procedure -Procedure Performed -Type of Procedure -Clinical Debridement -Tissue Removed -Post Debridement (cm) - Length -Post Debridement (cm) - Width -Post Debridement (cm) - Depth -Total Square (Post) (cm) -Area of Debridement (cm) - Length -Area of Debridement (cm) - Width -Total Square (Area) (cm) -Tunneling -Undermining/Tunneling -Circular Undermining -Wound/Ulcer Outcome -Ulcer Cleansing -Foul Odor after Cleansing -Bioengineered Tissue -Bleeding Controlled with -Offloading -Type of Offloading -Treatment Response -Debridement - Subq, 20sq cm 52. R heel -Time -Correct Patient -Correct Side, Site, Position -Correct Procedure -Procedure Performed -Type of Procedure -Clinical Debridement -Tissue Removed -Post Debridement (cm) - Length -Post Debridement (cm) - Width -Post Debridement (cm) - Depth -Total Square (Post) (cm) -Area of Debridement (cm) - Length -Area of Debridement (cm) - Width -Total Square (Area) (cm) -Tunneling -Undermining/Tunneling -Circular Undermining -Wound/Ulcer Outcome -Ulcer Cleansing -Foul Odor after Cleansing -Bioengineered Tissue -Bleeding Controlled with -Offloading -Type of Offloading -Treatment Response -Debridement - Subq, 20sq cm #35 L Stump -Time 14:23 -Correct Patient Yes -Correct Side, Site, Position Yes -Correct Procedure Yes -Procedure Performed Yes -Type of Procedure Debridement -Clinical Debridement Subcutaneous -Tissue Removed Dermis -Post Debridement (cm) - Length 1.4 -Post Debridement (cm) - Width 2.4 -Post Debridement (cm) - Depth 0.5 -Total Square (Post) (cm) 3.36 -Area of Debridement (cm) - Length 1.4 -Area of Debridement (cm) - Width 2.4 -Total Square (Area) (cm) 3.36 -Tunneling No -Undermining/Tunneling No -Circular Undermining No -Wound/Ulcer Outcome Not Healed -Ulcer Cleansing Rinsed/ Irrigated with Saline -Foul Odor after Cleansing No -Bioengineered Tissue No -Bleeding Controlled with Pressure -Offloading No -Treatment Response Procedure Tolerated Well -Debridement - Subq, 1st 20sq cm No Pain Scale: 0-10 Numeric Is Patient Pain Free? Yes WC - Nurse 3 - General Ulcer D/C NN Start: 03/20/21 11:18 Freq: Status: Active Protocol: Activity Type Activity Date Activity User E-Sign Co-Sign Detail Recorded Client Recorded Date Recorded By Document 03/20/21 11:51 RB [id number] 03/20/21 11:55 RB Document 04/03/21 12:07 DL [id number] 04/03/21 12:10 DL Document 04/10/21 14:14 RB [id number] 04/10/21 14:16 RB Document 04/10/21 14:39 RB [id number] 04/10/21 14:41 RB 03/20/21 04/03/21 04/10/21 11:51 12:07 14:14 Wound Care Nurse 3 56. R plantar lateral foot -Ulcer Cleansing Rinsed/ Irrigated with Saline -Other Dressing dakins moistened gauze -Primary Dressing Covered/Secured with Dry Gauze,Dry Gauze & Roll Gauze,Secured with Tape 55. Superior of L stump ulcer -Ulcer Cleansing Soap and Water -Foul Odor after Cleansing No -Other Dressing Dakins -Primary Dressing Covered/Secured with Dry Gauze & Roll Gauze, Secured with Tape 54. L stump lateral -Ulcer Cleansing Soap and Water -Foul Odor after Cleansing No -Other Dressing Dakins -Primary Dressing Covered/Secured with Dry Gauze & Roll Gauze, Secured with Tape 53-right plantar heel -Ulcer Cleansing Soap and Water -Foul Odor after Cleansing No -Other Dressing dakins 0.25% dakins dakins moistened guaze moistened gauze -Primary Dressing Covered/Secured with Dry Gauze,Dry Dry Gauze & Dry Gauze,Dry Gauze & Roll Roll Gauze, Gauze & Roll Gauze,Secured Secured with Gauze,Secured with Tape Tape with Tape -Other Covering abd 52. R heel -Ulcer Cleansing Soap and Water -Foul Odor after Cleansing No -Other Dressing dakin moistened dakins gauze -Primary Dressing Covered/Secured with Dry Gauze,Dry Dry Gauze & Gauze & Roll Roll Gauze, Gauze,Secured Secured with with Tape Tape #35 L Stump -Ulcer Cleansing Soap and Water -Foul Odor after Cleansing No -Other Dressing dakin moistened Dakins gauze -Primary Dressing Covered/Secured with Dry Gauze,Dry Dry Gauze & Gauze & Roll Roll Gauze, Gauze,Secured Secured with with Tape Tape Right -Compression Wrap Mateus Wrap -Other farrow wrap tubigrip tubigrip , mateus circaid Left -Other single layer tubigrip tubigrip then mateus Treatment Response Procedure Procedure Tolerated Well Tolerated Well Pain Scale: 0-10 Numeric Is Patient Pain Free? Yes Yes Yes WC - Visit Discharge Discharge Condition Stable Stable Stable Ambulatory Status Wheelchair Wheelchair Wheelchair Transportation [facility] ambulance Medication Reconcilliation completed & No No provided to patient/care provider Clinical Summary of Care Provided Yes Yes Facility Type Home Health Orders Sent Yes 04/10/21 14:39 Wound Care Nurse 3 56. R plantar lateral foot -Ulcer Cleansing -Other Dressing -Primary Dressing Covered/Secured with 55. Superior of L stump ulcer -Ulcer Cleansing -Foul Odor after Cleansing -Other Dressing dakins moistened gauze ,abd, kerlix and tubigrip, mateus -Primary Dressing Covered/Secured with Dry Gauze,Dry Gauze & Roll Gauze,Secured with Tape 54. L stump lateral -Ulcer Cleansing -Foul Odor after Cleansing -Other Dressing dakins moistened gauze -Primary Dressing Covered/Secured with Dry Gauze,Dry Gauze & Roll Gauze,Secured with Tape 53-right plantar heel -Ulcer Cleansing -Foul Odor after Cleansing -Other Dressing -Primary Dressing Covered/Secured with -Other Covering 52. R heel -Ulcer Cleansing -Foul Odor after Cleansing -Other Dressing -Primary Dressing Covered/Secured with #35 L Stump -Ulcer Cleansing -Foul Odor after Cleansing -Other Dressing dakins moistened gauze -Primary Dressing Covered/Secured with Dry Gauze,Dry Gauze & Roll Gauze,Secured with Tape Right -Compression Wrap -Other Left -Other tubigrip, mateus Treatment Response Procedure Tolerated Well Pain Scale: 0-10 Numeric Is Patient Pain Free? Yes WC - Visit Discharge Discharge Condition Stable Ambulatory Status Wheelchair Transportation Medication Reconcilliation completed & No provided to patient/care provider Clinical Summary of Care Provided Yes Facility Type Orders Sent Additional Wound Wound debrided: #54 Left BKA stump ulcer, lateral Laterality: Left Wound Grade/Stage: 2. Type of Debridement: Excisional debridement Anesthesia Used: 4% Lidocaine Solution Depth: Down to and including healthy tissue and in the subcutaneous layer Percentage of wound debrided: 100 Instrument Used: 3mm curette Tissue Removed: subcutaneous tissue. Severity: Fat Layer Exposed Amount of bleeding with debridement: Mild Bleeding Controlled with: Compression and gauze Patient tolerated procedure: Patient tolerated procedure well Assessment/Plan Assessment/Plan (1) Ulceration of below knee amputation stump: CODE(S): T87.89 - Other complications of amputation stump; L97.809 - Non- pressure chronic ulcer of other part of unspecified lower leg with unspecified severity (2) Osteomyelitis: CODE(S): M86.9 - Osteomyelitis, unspecified (3) Diabetes mellitus: CODE(S): E11.9 - Type 2 diabetes mellitus without complications (4) MRSA (methicillin resistant Staphylococcus aureus): CODE(S): A49.02 - Methicillin resistant Staphylococcus aureus infection, unspecified site (5) Localized edema: CODE(S): R60.0 - Localized edema PLAN: Patient has worsening ulceration of his amputation stump. Localized edema has been a problem for the stump. Recent wound culture showed Pseudomonas aeroginosa, Citrobacter braaki, Coag negative Staph, and Anaerobic cocci. He was placed on antibiotics. I am concerned that the ulcerations track down to his bone increasing the chance for osteomyelitis. Wound care is difficult because of the multiple ulcerations and the edema problem. Recommend operative intervention with surgical preparation left BKA stump with incision and drainage and excisional debridement infected diabetic ulcer and partial ostectomy tibia for osteomyelitis. Will leave the wound open and begin postoperative care with the VAC. For taking care of the infection, the HgbA1c is not critical. However, for any stump revisions and secondary closure of the stump ulcer, the HgbA1c needs to be less than 8. Will order a CT of the stump preoperatively. Surgery can be done under general anesthesia with a surgical observation overnight stay in the hospital. Patient was informed of the risks and complications of the procedure including alternatives to surgery. These were discussed with the patient personally. Patient voices understanding and wishes to proceed. We discussed the current risks associated with COVID-19. While it is understood that there is a community spread of COVID-19, the risk of taina COVID-19 while at [facility] ([facility]) is very low; however, the risk cannot be completely mitigated because of the community spread of the disease. We discussed in detail the risk of exposure to and/or potential harm posed by the COVID-19 virus with having a surgery/procedure at this time versus the risk of delaying the surgery/procedure. It is not possible to know either the risk of delaying the surgery or procedure or chance of getting an infection with perfect accuracy, but a joint decision was made to proceed at this time with the scheduled surgery/procedure as indicated on the consent form. Patient was notified that we will need to comply with any screening or testing [facility] wishes to perform or that surgery may be delayed for any positive results. Procedure Criteria Procedure Type:?Elective COVID Risk Discussion: The surgeon/proceduralist and patient have discussed in detail the risk of exposure to and/or potential harm posed by the COVID-19 virus with having a surgery/procedure at this time versus the risk of delaying the surgery/procedure.? It is not possible to know either the risk of delaying the surgery or procedure or chance of getting an infection with perfect accuracy, but a joint decision was made between the patient and the surgeon/proceduralist to proceed at this time with the scheduled surgery/procedure as indicated on the consent form. Until the surgery is done, continue to followup in one week.
== END 2021-04-15 23:59 ==
LOC: WC 13:45
PROVIDERS: PCP Family Medicine; Visit Provider Podiatrist
DX: E11.621 Type 2 diabetes mellitus with foot ulcer (principal); T87.89 Other complications of amputation stump; L97.822 Non-pressure chronic ulcer of other part of left lower leg with fat layer exposed; L97.412 Non-pressure chronic ulcer of right heel and midfoot with fat layer exposed; L97.512 Non-pressure chronic ulcer of other part of right foot with fat layer exposed; E11.42 Type 2 diabetes mellitus with diabetic polyneuropathy; L03.115 Cellulitis of right lower limb; R60.0 Localized edema; I89.0 Lymphedema, not elsewhere classified; L98.8 Other specified disorders of the skin and subcutaneous tissue; Y84.8 Other medical procedures as the cause of abnormal reaction of the patient, or of later complication, without mention of misadventure at the time of the procedure
CPT/HCPCS: 11042; 87070; 87075; 87077; 87186; 87205; 87640

== ENCOUNTER 2021-05-01 11:15 | Outpatient (RCR) | payer MEDICARE, MEDICAID, SELFPAY ==
[2021-04-16 00:38] VITALS: BP 165/61; PULSE 66; RESP 18; TEMP 36.5
[2021-05-01 11:28] VITALS: BP 157/50; PULSE 40; RESP 18; TEMP 36.3
--- NOTE | 2021-05-01 15:53 | PCM.WC.PN ---
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 He also has multiple right foot ulcers and a left leg ulcer, and has been performing dressing changes as advised. He denies fever, chill, nausea, vomiting, redness, or odor. He had prior left below-knee amputation in the remote setting with Dr. Pompa. He denies traumatic incident. He reports some increased pain and swelling in the increased drainage to the left leg. He was referred to Dr. Pompa for work-up of his deteriorated left limb status and is here to see him this afternoon. He obtained his leg x-ray and is now awaiting to get scheduled for surgery. He denies any injuries or wounds to his right lower extremity Progress of Wound: Stable right Stable left stump site and continued deterioration and worsening of the lateral stump site Objective Data Objective Data Vital Signs: Vital Signs Temp Pulse Resp BP 97.4 F L 40 L 18 157/50 H 05/01/21 11:28 05/01/21 11:28 05/01/21 11:28 05/01/21 11:28 Physical Exam Extremity Extremity Narrative: No calf tenderness Diminished pulses Muscle wasting noted Left below-knee amputation and right hallux amputation Compartments remain soft to palpate bilateral lower extremities Skin Skin Narrative: no purulence, no streaking, no odor, no infection. No green drainage noted. Only serosanguineous drainage noted. Full epithelialization tissue to dorsal right foot, second toe, right posterior leg. no bogginess or fluctuance noted. The adjacent skin is hairless and atrophic. There is no deep tissue exposure or infection or even granulation tissue seen on the right lower extremity. right heel ulcer and right subfifth metatarsal head ulcer with granular base and peripheral skin peeling without infection, necrosis, or deep tissue exposure; decreased size. Maceration resolved. left lower limb central ulcer site is stable with granular fibrous base. There is skin discontinuity lateral aspect now with devitalized hematogenous drainage consistent with an infected hematoma early signs of purulence. This seems to be tracking from the proximal aspect, 5 cc. No odor erythema or streaking. This is painful. Neuro Neuro Narrative: lack of normal epicritic sensation via light touch is consistent with neuropathy status Debridement Note Debridement Note Wound debrided: right heel, right plantar lateral forefoot, left stump, left plateral leg Wound Grade/Stage: 1,1,1,3 Type of Debridement: Excisional debridement Anesthesia Used: 4% Lidocaine Solution Depth: in the subcutaneous layer Percentage of wound debrided: 100 Instrument Used: #15 blade Tissue Removed: fibrous, devitalized subcutaneous, biofilm, slough Severity: Fat Layer Exposed Amount of bleeding with debridement: Mild Bleeding Controlled with: Pressure Patient tolerated procedure: Patient tolerated procedure well Post-Debridement Measurements and Additional Note: Post-Debridement Measurements/Treatment - Nurse 1 - General Ulcer Assessment Start: 05/01/21 11:28 Freq: Status: Active Protocol: SUSAN Activity Type Activity Date Activity User E-Sign Co-Sign Detail Recorded Client Recorded Date Recorded By Document 05/01/21 11:28 FERNY [id number] 05/01/21 11:42 RB 05/01/21 11:28 WC - Today's Visit Information Type of service Follow-up Visit (Physician/CAN STERILIZER ) Arrival Mode Wheelchair Transfer Assistance None Patient Identification Verified (Name & Yes ) Patient Requires Transmission-Based No Precautions Vital Signs Temperature (97.8 F-99.1 F) 97.4 F L Temperature Source Temporal Pulse Rate (60-100) 40 L Pulse Location Monitor Respiratory Rate (12-18) 18 Respiratory rate source Observation Blood Pressure (90/60-120/80) 157/50 H Blood Pressure Mean (mm Hg) 85 Source Monitor History Since Last Visit- (Skip if this is Patient's initial visit) Have you changed medications since your No last visit? Any new allergies or adverse reactions No Had a fall/change in ADL's that may No increase risk of falls Signs or symptoms of abuse and/or No neglect since last visit Have you been in the hospital since your No last visit? Has dressing in place as prescribed Yes Has compression in place as prescribed No Has offloadiing in place as prescribed No Experienced any changes in pain level or No management Pain Scale: 0-10 Numeric Is Patient Pain Free? Yes Eligio Nurse 1 - General Ulcer Measurement Start: 05/01/21 11:28 Freq: Status: Active Protocol: Activity Type Activity Date Activity User E-Sign Co-Sign Detail Recorded Client Recorded Date Recorded By Document 05/01/21 11:28 FERNY [id number] 05/01/21 11:42 RB Edit Result 05/01/21 11:28 RB (1) [id number] 05/01/21 11:49 RB (1) 56. R plantar lateral foot - Tunneling => No - Undermining/Tunneling => No - Circular Undermining => No - Exudate Amt => Medium - Exudate Type => Serosanguineous - Wound Margin => Distinct, Outline => Attached - Granulation Amt => Medium (34-66%) - Granulation Quality => [place] - Slough/Fibrin => Yes - Necrosis Amt => Medium (34-66%) - Necrotic Tissue Type => Adherent Slough - Structure Exposed => N/A - Texture (Susy-wound Skin Appearance) => Assessed,Callus - Moisture (Susy-wound Skin Appearance) => Assessed - Color (Susy-wound Skin Appearance) => Assessed - Temperature (Susy-wound Skin => No Abnormality (Pt Appearance) => Warm) - Tenderness on Palpation (Susy-wound => No Skin Appearance) - Ulcer Cleansing => Wound Cleanser - Foul Odor after Cleansing => No - Anesthetic Used => 5% Lidocaine Gel 55. Superior of L stump ulcer - Current Size (cm) - Length 1.7 => 0.3 - Current Size (cm) - Width 1.6 => 0.2 - Current Size (cm) - Depth 0.3 => 0.4 - Total Square Cm 2.72 => 0.06 - Tunneling => No - Undermining/Tunneling => No - Circular Undermining => No - Exudate Amt => Medium - Exudate Type => Serosanguineous - Wound Margin => Distinct, Outline => Attached - Granulation Amt => Medium (34-66%) - Granulation Quality => [place] - Slough/Fibrin => Yes - Necrosis Amt => Medium (34-66%) - Necrotic Tissue Type => Adherent Slough - Structure Exposed => N/A - Texture (Susy-wound Skin Appearance) => Assessed - Moisture (Susy-wound Skin Appearance) => Maceration - Color (Susy-wound Skin Appearance) => Assessed - Temperature (Susy-wound Skin => No Abnormality (Pt Appearance) => Warm) - Tenderness on Palpation (Susy-wound => No Skin Appearance) - Ulcer Cleansing => Wound Cleanser - Foul Odor after Cleansing => No - Anesthetic Used => 5% Lidocaine Gel 54. L stump lateral - Tunneling => No - Undermining/Tunneling => No - Circular Undermining => No - Exudate Amt => Large - Exudate Type => Serosanguineous - Wound Margin => Thickened & Rolled => Under - Granulation Amt => Medium (34-66%) - Granulation Quality => [place] - Slough/Fibrin => Yes - Necrosis Amt => Medium (34-66%) - Necrotic Tissue Type => Adherent Slough - Structure Exposed => N/A - Texture (Susy-wound Skin Appearance) => Assessed - Moisture (Susy-wound Skin Appearance) => Assessed,Dry/Scaly - Color (Susy-wound Skin Appearance) => Assessed - Temperature (Susy-wound Skin => No Abnormality (Pt Appearance) => Warm) - Tenderness on Palpation (Susy-wound => No Skin Appearance) - Ulcer Cleansing => Wound Cleanser - Foul Odor after Cleansing => No - Anesthetic Used => 5% Lidocaine Gel 53-right plantar heel - Tunneling => No - Undermining/Tunneling => No - Circular Undermining => No - Exudate Amt => Large - Exudate Type => Serosanguineous - Wound Margin => Thickened & Rolled => Under - Granulation Amt => Medium (34-66%) - Granulation Quality => [place] - Slough/Fibrin => Yes - Necrosis Amt => Medium (34-66%) - Necrotic Tissue Type => Adherent Slough - Structure Exposed => N/A - Texture (Susy-wound Skin Appearance) => Callus - Moisture (Susy-wound Skin Appearance) => Assessed - Color (Susy-wound Skin Appearance) => Assessed - Temperature (Susy-wound Skin => No Abnormality (Pt Appearance) => Warm) - Tenderness on Palpation (Susy-wound => No Skin Appearance) - Ulcer Cleansing => Wound Cleanser - Foul Odor after Cleansing => No - Anesthetic Used => 5% Lidocaine Gel #35 L Stump - Tunneling => No - Undermining/Tunneling => No - Circular Undermining => No - Exudate Amt => Large - Exudate Type => Serosanguineous - Wound Margin => Thickened & Rolled => Under - Granulation Amt => Medium (34-66%) - Granulation Quality => [place] - Slough/Fibrin => Yes - Necrosis Amt => Medium (34-66%) - Necrotic Tissue Type => Adherent Slough - Structure Exposed => N/A - Texture (Susy-wound Skin Appearance) => Assessed - Moisture (Susy-wound Skin Appearance) => Assessed,Dry/Scaly - Color (Susy-wound Skin Appearance) => Assessed - Temperature (Susy-wound Skin => No Abnormality (Pt Appearance) => Warm) - Tenderness on Palpation (Susy-wound => No Skin Appearance) - Ulcer Cleansing => Wound Cleanser - Foul Odor after Cleansing => No - Anesthetic Used => 5% Lidocaine Gel 05/01/21 11:28 Wound Center Nurse 1 56. R plantar lateral foot -Combined with other wound No -Current Size (cm) - Length 1 -Current Size (cm) - Width 1.3 -Current Size (cm) - Depth 0.1 -Total Square Cm 1.3 -Tunneling No -Undermining/Tunneling No -Circular Undermining No -Exudate Amt Medium -Exudate Type Serosanguineous -Wound Margin Distinct, Outline Attached -Granulation Amt Medium (34-66%) -Granulation Quality [place] -Slough/Fibrin Yes -Necrosis Amt Medium (34-66%) -Necrotic Tissue Type Adherent Slough -Structure Exposed N/A -Texture (Susy-wound Skin Appearance) Assessed,Callus -Moisture (Susy-wound Skin Appearance) Assessed -Color (Susy-wound Skin Appearance) Assessed -Temperature (Susy-wound Skin No Abnormality Appearance) (Pt Warm) -Tenderness on Palpation (Susy-wound No Skin Appearance) -Ulcer Cleansing Wound Cleanser -Foul Odor after Cleansing No -Anesthetic Used 5% Lidocaine Gel 55. Superior of L stump ulcer -Combined with other wound No -Current Size (cm) - Length 0.3 -Current Size (cm) - Width 0.2 -Current Size (cm) - Depth 0.4 -Total Square Cm 0.06 -Tunneling No -Undermining/Tunneling No -Circular Undermining No -Exudate Amt Medium -Exudate Type Serosanguineous -Wound Margin Distinct, Outline Attached -Granulation Amt Medium (34-66%) -Granulation Quality [place] -Slough/Fibrin Yes -Necrosis Amt Medium (34-66%) -Necrotic Tissue Type Adherent Slough -Structure Exposed N/A -Texture (Susy-wound Skin Appearance) Assessed -Moisture (Susy-wound Skin Appearance) Maceration -Color (Susy-wound Skin Appearance) Assessed -Temperature (Susy-wound Skin No Abnormality Appearance) (Pt Warm) -Tenderness on Palpation (Susy-wound No Skin Appearance) -Ulcer Cleansing Wound Cleanser -Foul Odor after Cleansing No -Anesthetic Used 5% Lidocaine Gel 54. L stump lateral -Combined with other wound No -Current Size (cm) - Length 1.7 -Current Size (cm) - Width 1.6 -Current Size (cm) - Depth 0.3 -Total Square Cm 2.72 -Tunneling No -Undermining/Tunneling No -Circular Undermining No -Exudate Amt Large -Exudate Type Serosanguineous -Wound Margin Thickened & Rolled Under -Granulation Amt Medium (34-66%) -Granulation Quality [place] -Slough/Fibrin Yes -Necrosis Amt Medium (34-66%) -Necrotic Tissue Type Adherent Slough -Structure Exposed N/A -Texture (Susy-wound Skin Appearance) Assessed -Moisture (Susy-wound Skin Appearance) Assessed,Dry/ Scaly -Color (Susy-wound Skin Appearance) Assessed -Temperature (Susy-wound Skin No Abnormality Appearance) (Pt Warm) -Tenderness on Palpation (Susy-wound No Skin Appearance) -Ulcer Cleansing Wound Cleanser -Foul Odor after Cleansing No -Anesthetic Used 5% Lidocaine Gel 53-right plantar heel -Combined with other wound No -Current Size (cm) - Length 3 -Current Size (cm) - Width 2.5 -Current Size (cm) - Depth 0.1 -Total Square Cm 7.5 -Tunneling No -Undermining/Tunneling No -Circular Undermining No -Exudate Amt Large -Exudate Type Serosanguineous -Wound Margin Thickened & Rolled Under -Granulation Amt Medium (34-66%) -Granulation Quality [place] -Slough/Fibrin Yes -Necrosis Amt Medium (34-66%) -Necrotic Tissue Type Adherent Slough -Structure Exposed N/A -Texture (Susy-wound Skin Appearance) Callus -Moisture (Susy-wound Skin Appearance) Assessed -Color (Susy-wound Skin Appearance) Assessed -Temperature (Susy-wound Skin No Abnormality Appearance) (Pt Warm) -Tenderness on Palpation (Susy-wound No Skin Appearance) -Ulcer Cleansing Wound Cleanser -Foul Odor after Cleansing No -Anesthetic Used 5% Lidocaine Gel #35 L Stump -Combined with other wound No -Current Size (cm) - Length 1.7 -Current Size (cm) - Width 2.2 -Current Size (cm) - Depth 0.5 -Total Square Cm 3.74 -Tunneling No -Undermining/Tunneling No -Circular Undermining No -Exudate Amt Large -Exudate Type Serosanguineous -Wound Margin Thickened & Rolled Under -Granulation Amt Medium (34-66%) -Granulation Quality [place] -Slough/Fibrin Yes -Necrosis Amt Medium (34-66%) -Necrotic Tissue Type Adherent Slough -Structure Exposed N/A -Texture (Susy-wound Skin Appearance) Assessed -Moisture (Susy-wound Skin Appearance) Assessed,Dry/ Scaly -Color (Susy-wound Skin Appearance) Assessed -Temperature (Susy-wound Skin No Abnormality Appearance) (Pt Warm) -Tenderness on Palpation (Susy-wound No Skin Appearance) -Ulcer Cleansing Wound Cleanser -Foul Odor after Cleansing No -Anesthetic Used 5% Lidocaine Gel Lower Limb Edema Present Yes Right Calf (cm) 49 Right Ankle (cm) 28 - Nurse 2 - General Ulcer CM Notes Start: 05/01/21 11:28 Freq: Status: Active Protocol: Activity Type Activity Date Activity User E-Sign Co-Sign Detail Recorded Client Recorded Date Recorded By Document 05/01/21 11:44 NORRIS [id number] 05/01/21 11:50 NORRIS 05/01/21 11:44 Wound Center Nurse 2 56. R plantar lateral foot -Time 11:44 -Correct Patient Yes -Correct Side, Site, Position Yes -Correct Procedure Yes -Procedure Performed Yes -Type of Procedure Debridement -Clinical Debridement Subcutaneous -Tissue Removed Subcutaneous -Post Debridement (cm) - Length 1.1 -Post Debridement (cm) - Width 1.4 -Post Debridement (cm) - Depth 0.1 -Total Square (Post) (cm) 1.54 -Area of Debridement (cm) - Length 1.1 -Area of Debridement (cm) - Width 1.4 -Total Square (Area) (cm) 1.54 -Tunneling No -Undermining/Tunneling No -Circular Undermining No -Wound/Ulcer Outcome Not Healed -Ulcer Cleansing Rinsed/ Irrigated with Saline -Foul Odor after Cleansing No -Bioengineered Tissue No -Bleeding Controlled with Pressure -Offloading Yes -Type of Offloading Surgical Shoe -Treatment Response Procedure Tolerated Well -Debridement - Subq, 1st 20sq cm Yes 55. Superior of L stump ulcer -Time 11:45 -Correct Patient Yes -Correct Side, Site, Position Yes -Correct Procedure Yes -Procedure Performed Yes -Type of Procedure Debridement -Clinical Debridement Subcutaneous -Tissue Removed Subcutaneous -Post Debridement (cm) - Length 0.3 -Post Debridement (cm) - Width 0.3 -Post Debridement (cm) - Depth 0.4 -Total Square (Post) (cm) 0.09 -Area of Debridement (cm) - Length 0.3 -Area of Debridement (cm) - Width 0.3 -Total Square (Area) (cm) 0.09 -Tunneling No -Undermining/Tunneling No -Circular Undermining No -Wound/Ulcer Outcome Not Healed -Ulcer Cleansing Rinsed/ Irrigated with Saline -Foul Odor after Cleansing No -Bioengineered Tissue No -Bleeding Controlled with Pressure -Offloading No -Treatment Response Procedure Tolerated Well -Debridement - Subq, 20sq cm No 54. L stump lateral -Time 11:45 -Correct Patient Yes -Correct Side, Site, Position Yes -Correct Procedure Yes -Procedure Performed Yes -Type of Procedure Debridement -Clinical Debridement Subcutaneous -Tissue Removed Subcutaneous -Post Debridement (cm) - Length 1.8 -Post Debridement (cm) - Width 1.7 -Post Debridement (cm) - Depth 0.4 -Total Square (Post) (cm) 3.06 -Area of Debridement (cm) - Length 1.8 -Area of Debridement (cm) - Width 1.7 -Total Square (Area) (cm) 3.06 -Tunneling No -Undermining/Tunneling No -Circular Undermining No -Wound/Ulcer Outcome Not Healed -Ulcer Cleansing Rinsed/ Irrigated with Saline -Foul Odor after Cleansing No -Bioengineered Tissue No -Bleeding Controlled with Pressure -Offloading No -Treatment Response Procedure Tolerated Well -Debridement - Subq, 1st 20sq cm No 53-right plantar heel -Time 11:45 -Correct Patient Yes -Correct Side, Site, Position Yes -Correct Procedure Yes -Procedure Performed Yes -Type of Procedure Debridement -Clinical Debridement Subcutaneous -Tissue Removed Subcutaneous -Post Debridement (cm) - Length 3.1 -Post Debridement (cm) - Width 2.5 -Post Debridement (cm) - Depth 0.1 -Total Square (Post) (cm) 7.75 -Area of Debridement (cm) - Length 3.1 -Area of Debridement (cm) - Width 2.5 -Total Square (Area) (cm) 7.75 -Tunneling No -Undermining/Tunneling No -Circular Undermining No -Wound/Ulcer Outcome Not Healed -Ulcer Cleansing Rinsed/ Irrigated with Saline -Foul Odor after Cleansing No -Bioengineered Tissue No -Bleeding Controlled with Pressure -Offloading Yes -Type of Offloading Surgical Shoe -Treatment Response Procedure Tolerated Well -Debridement - Subq, 20sq cm No #35 L Stump -Time 11:48 -Correct Patient Yes -Correct Side, Site, Position Yes -Correct Procedure Yes -Procedure Performed Yes -Type of Procedure Debridement -Clinical Debridement Subcutaneous -Tissue Removed Subcutaneous -Post Debridement (cm) - Length 1.8 -Post Debridement (cm) - Width 2.2 -Post Debridement (cm) - Depth 0.5 -Total Square (Post) (cm) 3.96 -Area of Debridement (cm) - Length 1.8 -Area of Debridement (cm) - Width 2.2 -Total Square (Area) (cm) 3.96 -Tunneling No -Undermining/Tunneling No -Circular Undermining No -Wound/Ulcer Outcome Not Healed -Ulcer Cleansing Rinsed/ Irrigated with Saline -Foul Odor after Cleansing No -Bioengineered Tissue No -Bleeding Controlled with Pressure -Offloading No -Treatment Response Procedure Tolerated Well -Debridement - Subq, 20sq cm No Pain Scale: 0-10 Numeric Is Patient Pain Free? Yes WC - Nurse 3 - General Ulcer D/C NN Start: 05/01/21 11:28 Freq: Status: Active Protocol: Activity Type Activity Date Activity User E-Sign Co-Sign Detail Recorded Client Recorded Date Recorded By Document 05/01/21 11:54 RB [id number] 05/01/21 12:00 RB 05/01/21 11:54 Wound Care Nurse 3 56. R plantar lateral foot -Ulcer Cleansing Wound Cleanser -Other Dressing dakins moistyened gauze -Primary Dressing Covered/Secured with Dry Gauze,Dry Gauze & Roll Gauze,Secured with Tape -Other Covering abd pad 55. Superior of L stump ulcer -Ulcer Cleansing Wound Cleanser -Other Dressing dakins moistened guaze -Primary Dressing Covered/Secured with Dry Gauze,Dry Gauze & Roll Gauze,Secured with Tape -Other Covering abd 54. L stump lateral -Primary Dressing Applied Nugauze, Iodoform -Primary Dressing Covered/Secured with Dry Gauze,Dry Gauze & Roll Gauze,Secured with Tape -Nugauze, Iodoform 03/19 1 53-right plantar heel -Other Dressing dakins moistened gauze -Primary Dressing Covered/Secured with Dry Gauze,Dry Gauze & Roll Gauze,Secured with Tape -Other Covering abd pad #35 L Stump -Ulcer Cleansing Wound Cleanser -Other Dressing dakins moistened gauze -Primary Dressing Covered/Secured with Dry Gauze,Dry Gauze & Roll Gauze,Secured with Tape Right -Other circaid Left -Other tubigrip Treatment Response Procedure Tolerated Well Pain Scale: 0-10 Numeric Is Patient Pain Free? Yes WC - Visit Discharge Discharge Condition Stable Ambulatory Status Wheelchair Transportation Private Auto Medication Reconcilliation completed & No provided to patient/care provider Clinical Summary of Care Provided Yes Assessment/Plan Assessment/Plan (1) Ulcer of left lower extremity with fat layer exposed: CODE(S): L97.922 - Non-pressure chronic ulcer of unspecified part of left lower leg with fat layer exposed (2) Ulcer of right foot with fat layer exposed: CODE(S): L97.512 - Non-pressure chronic ulcer of other part of right foot with fat layer exposed (3) Delayed wound healing: CODE(S): T14.8XXD - Other injury of unspecified body region, subsequent encounter (4) Type 2 diabetes mellitus with diabetic polyneuropathy: CODE(S): E11.42 - Type 2 diabetes mellitus with diabetic polyneuropathy (5) Localized edema: CODE(S): R60.0 - Localized edema (6) Lymphedema: CODE(S): I89.0 - Lymphedema, not elsewhere classified (7) Osteomyelitis: CODE(S): M86.9 - Osteomyelitis, unspecified (8) Cellulitis of left lower limb: CODE(S): L03.116 - Cellulitis of left lower limb PLAN: I reviewed and discussed his case. His ulcer were debrided to right foot x 2 as noted. He was reassured no local signs of infection are seen on right lower extremity. Updated right foot xray was ordered. No gross concerning pathology or changes noted. Vessel calcification is noted. There is osseous deterioration of the distal second phalanx toe in which she is already been treated for infections at this site there is no corresponding ulcer at this location today. To change dressing daily with Aquacel ag to right foot ulcers. To wash the wound with antibacterial soap and water. I encourage routine showering at least once a week if possible. I am concerned about his new deep probing ulcers to the left stump site with a work-up in process for osteomyelitis or deep space infection. There is no purulence on expression streaking erythema however the probing to deep structures there is concern. After debridement and irrigation, wound cultures were obtained including aerobic, anaerobic, and MRSA PCR. So far with Pseudomonas, anaerobic cocci, MRSA negative, Citrobacter, and coag negative staph. He is on cefdinir and Flagyl. A leg x-ray was ordered last week and he did not get this yet. I also updated his lab order for CBC, CMP, ESR, C-reactive protein. He did have x-rays obtained at different hospital and the images and report were requested again. His A1c last on file was 7.9%. I recommend he follow-up with Dr. Pompa due to his changes to his surgical site and suspected deeper tissue involvement. He is here this afternoon to see him. Dr. Pompa ordered a CT scan and plans to perform surgery. To continue antibiotics at this time. To continue with right lower extremity surgical shoe. To continue with automated wheelchair. To take care to avoid pressure to his right heel ulcer site. To continue to optimize healing with improved glycemic index, continued weight reduction, and well-balanced whole food nutrients. To continue with edema management including his compression wraps and also lymphedema pumps. It is noted he has not been able to elevate as much this past week and has increased edema. Additional [place] wrap was applied prior to Tubigrip application splint to help reduce stump edema. He was specifically advised apply the [place] wrap to the forefoot to address his lymphedema at this level which is an ongoing issue. To reduce salt in diet; this was discussed. He has resumed Lasix and was advised to continue his advised by his primary care physician. To continue Lac-Hydrin application to dry skin on legs. It is noted that he completed course of advanced wound healing product application, epi fix. He was advised to return to clinic in 1 week or call sooner concerns or problems. Note: IPG speech recognition mining plant operator software was used to create portions of this document. Sound-alike and misspelled words, as well as other mining plant operator errors may be contained in the documentation. The medical decision making level is moderate. There is noted moderate risk of morbidity after considering this treatment plan and diagnostic data. Considerations were given to prescription management, decisions regarding surgical options, or social determinants of health. The problems addressed require a moderate decision making level which includes one or more chronic illnesses (w/ exacerbation, progression, or side effects), two or more stable chronic illnesses, one undiagnosed new problem w/ uncertain prognosis, one acute illness with systemic symptoms, or one acute complicated injury.
== END 2021-05-13 23:59 ==
LOC: WC 11:15
PROVIDERS: PCP Family Medicine; Visit Provider Podiatrist
DX: E11.621 Type 2 diabetes mellitus with foot ulcer (principal); T87.89 Other complications of amputation stump; L97.822 Non-pressure chronic ulcer of other part of left lower leg with fat layer exposed; L97.512 Non-pressure chronic ulcer of other part of right foot with fat layer exposed; L97.412 Non-pressure chronic ulcer of right heel and midfoot with fat layer exposed; E11.42 Type 2 diabetes mellitus with diabetic polyneuropathy; L03.116 Cellulitis of left lower limb; I89.0 Lymphedema, not elsewhere classified; R60.0 Localized edema; Y83.5 Amputation of limb(s) as the cause of abnormal reaction of the patient, or of later complication, without mention of misadventure at the time of the procedure
CPT/HCPCS: 11042

== ENCOUNTER 2021-06-12 11:15 | Outpatient (RCR) | payer MEDICARE, MEDICAID, SELFPAY ==
[2021-05-14 00:31] VITALS: BP 157/50; PULSE 40; RESP 18; TEMP 36.3
--- NOTE | 2021-05-20 13:48 | CT_ITS ---
STUDY: CT LEFT KNEE WITHOUT CONTRAST REASON FOR EXAM: Male, 65 years old. WOUND CARE. The patient is status post below knee amputation. RADIATION DOSAGE (If Supplied By Facility): CTDIvol = ( 19.27 ) mGy, DLP = ( 914.76 ) mGycm TECHNIQUE: Transaxial CT imaging of the knee was performed. Coronal and sagittal images were reformatted. Individualized dose optimization techniques were used for this CT. COMPARISON: None. FINDINGS: Normal medial femoral condyle and medial tibial plateau. There is preservation of the articular joint space of the medial knee compartment. Normal lateral femoral condyle and lateral tibial plateau. There is preservation of the articular joint space of the lateral knee compartment. Normal proximal tibiofibular articulation. Tiny joint effusion. Atrophy of the visualized musculature. Diffuse soft tissue swelling with increased markings in the subcutaneous tissues suggests above cellulitis and edema. There is soft tissue thickening at the level of the stump with evidence of focal ulcerated lesion. No bony abnormality is seen. Vascular calcification. CT/Extremity Lower without Contra IMPRESSION: Status post below knee amputation with diffuse soft tissue swelling and subcutaneous edema with skin thickening. Soft tissue thickening at the level of the stump with evidence of the overlying ulcerative lesion. No radiographic evidence of osteomyelitis at this time. Electronically Signed: Magdiel Stone MD at 15:09 EST ,
[2021-05-22 11:59] VITALS: RESP 18; TEMP 36.5
--- NOTE | 2021-05-22 14:10 | PN.PCM_ITS ---
History of Present Illness Date of Service: 05/22/21 Chief Complaint: Ulcer left leg right foot ulcer History of Wound: This 65-year-old male had a left below-knee amputation performed with residual ulcer. He also has multiple right foot ulcers in which I am seeing him for today. He denies fever, chill, nausea, vomiting, redness, or odor. He had prior left below-knee amputation in the remote setting with Dr. Pompa. He is now following up for worsening status and also had a leg CT. He denies any injuries or wounds to his right lower extremity Progress of Wound: stable right but increased edema noted Objective Data Objective Data Vital Signs: Vital Signs Temp Pulse Resp BP 97.7 F L 40 L 18 157/50 H 05/22/21 11:59 05/14/21 00:31 05/22/21 11:59 05/14/21 00:31 Physical Exam Extremity Extremity Narrative: No calf tenderness Diminished pulses Muscle wasting noted Left below-knee amputation and right hallux amputation Compartments remain soft to palpate bilateral lower extremities Skin Skin Narrative: no purulence, no streaking, no odor, no infection. Only serosanguineous drainage noted. Full epithelialization tissue to dorsal right foot, second toe, right posterior leg. no bogginess or fluctuance noted. The adjacent skin is hairless and atrophic. right heel ulcer and right subfifth metatarsal head ulcer with granular base and peripheral skin peeling without infection, necrosis, or deep tissue exposure; decreased size. Maceration returned and fissure to medial forefoot. left lower extremity dressing intact; follow with other provider Neuro Neuro Narrative: lack of normal epicritic sensation via light touch is consistent with neuropathy status Debridement Note Debridement Note Wound debrided: right heel and sub fifth metatarsal head Wound Grade/Stage: 1,1 Type of Debridement: Excisional debridement Anesthesia Used: 4% Lidocaine Solution Depth: in the subcutaneous layer Percentage of wound debrided: 100 Instrument Used: #15 blade Tissue Removed: fibrous, devitalized subcutaneous, biofilm, slough Severity: Fat Layer Exposed Amount of bleeding with debridement: Mild Bleeding Controlled with: Pressure Patient tolerated procedure: Patient tolerated procedure well Post-Debridement Measurements and Additional Note: Post-Debridement Measurements/Treatment XIMENA - Nurse 1 - General Ulcer Assessment Start: 05/22/21 11:58 Freq: Status: Active Protocol: WC.LOWEXT Activity Type Activity Date Activity User E-Sign Co-Sign Detail Recorded Client Recorded Date Recorded By Document 05/22/21 11:59 DL [id number] 05/22/21 12:09 DL 05/22/21 11:59 WC - Today's Visit Information Type of service Nurse-only Visit Arrival Mode Wheelchair Transfer Assistance None Patient Identification Verified (Name & Yes ) Patient Requires Transmission-Based No Precautions Finger Stick Blood Sugar(mg/dl) (if 158 indicated): Blood Sugar Stated by Patient Vital Signs Temperature (97.8 F-99.1 F) 97.7 F L Temperature Source Temporal Respiratory Rate (12-18) 18 Comment Unable to obtain bp today History Since Last Visit- (Skip if this is Patient's initial visit) Have you changed medications since your No last visit? Any new allergies or adverse reactions No Had a fall/change in ADL's that may No increase risk of falls Signs or symptoms of abuse and/or No neglect since last visit Have you been in the hospital since your No last visit? Has dressing in place as prescribed Yes Has compression in place as prescribed Yes Has offloadiing in place as prescribed Yes Experienced any changes in pain level or No management Left Footwear No Footwear Right Footwear Surgical Shoe with pressure relief insole Pain Scale: 0-10 Numeric Is Patient Pain Free? Yes - Nurse 2 - General Ulcer CM Notes Start: 05/22/21 11:58 Freq: Status: Active Protocol: Activity Type Activity Date Activity User E-Sign Co-Sign Detail Recorded Client Recorded Date Recorded By Document 05/22/21 12:12 NORRIS [id number] 05/22/21 12:20 NORRIS 05/22/21 12:12 Wound Center Nurse 2 56. R plantar lateral foot -Time 12:13 -Correct Patient Yes -Correct Side, Site, Position Yes -Correct Procedure Yes -Procedure Performed Yes -Type of Procedure Debridement -Clinical Debridement Subcutaneous -Tissue Removed Subcutaneous -Post Debridement (cm) - Length 1.8 -Post Debridement (cm) - Width 1.0 -Post Debridement (cm) - Depth 0.2 -Total Square (Post) (cm) 1.80 -Area of Debridement (cm) - Length 1.8 -Area of Debridement (cm) - Width 1.0 -Total Square (Area) (cm) 1.80 -Tunneling No -Undermining/Tunneling No -Circular Undermining No -Wound/Ulcer Outcome Not Healed -Ulcer Cleansing Rinsed/ Irrigated with Saline -Foul Odor after Cleansing No -Bioengineered Tissue No -Bleeding Controlled with Pressure -Offloading Yes -Type of Offloading Surgical Shoe -Treatment Response Procedure Tolerated Well -Debridement - Subq, 1st 20sq cm Yes 55. Superior of L stump ulcer -Correct Patient No -Correct Side, Site, Position No -Correct Procedure No -Procedure Performed No -Wound/Ulcer Outcome Not Healed 54. L stump lateral -Correct Patient No -Correct Side, Site, Position No -Correct Procedure No -Procedure Performed No -Wound/Ulcer Outcome Not Healed 53-right plantar heel -Time 12:14 -Correct Patient Yes -Correct Side, Site, Position Yes -Correct Procedure Yes -Procedure Performed Yes -Type of Procedure Debridement -Clinical Debridement Subcutaneous -Tissue Removed Subcutaneous -Post Debridement (cm) - Length 4.0 -Post Debridement (cm) - Width 3.2 -Post Debridement (cm) - Depth 0.2 -Total Square (Post) (cm) 12.80 -Area of Debridement (cm) - Length 4.0 -Area of Debridement (cm) - Width 3.2 -Total Square (Area) (cm) 12.80 -Tunneling No -Undermining/Tunneling No -Circular Undermining No -Wound/Ulcer Outcome Not Healed -Ulcer Cleansing Rinsed/ Irrigated with Saline -Foul Odor after Cleansing No -Bioengineered Tissue No -Bleeding Controlled with Pressure -Offloading No -Type of Offloading Total Contact Cast (TCC) - Right ($) -Treatment Response Procedure Tolerated Well -Debridement - Subq, 1st 20sq cm No #35 L Stump -Correct Patient No -Correct Side, Site, Position No -Correct Procedure No -Procedure Performed No -Wound/Ulcer Outcome Not Healed Pain Scale: 0-10 Numeric Is Patient Pain Free? Yes WC - Nurse 3 - General Ulcer D/C NN Start: 05/22/21 11:58 Freq: Status: Active Protocol: Activity Type Activity Date Activity User E-Sign Co-Sign Detail Recorded Client Recorded Date Recorded By Document 05/22/21 11:59 DL [id number] 05/22/21 12:09 DL Document 05/22/21 12:21 JF [id number] 05/22/21 12:22 JF 05/22/21 05/22/21 11:59 12:21 Vital Signs Temperature (97.8 F-99.1 F) 97.7 F L Temperature Source Temporal Respiratory Rate (12-18) 18 Comment Unable to obtain bp today Pain Scale: 0-10 Numeric Is Patient Pain Free? Yes Yes Wound Care Nurse 3 56. R plantar lateral foot -Ulcer Cleansing Soap and Water Rinsed/ Irrigated with Saline -Foul Odor after Cleansing No No -Other Dressing Dakins dakin's -Primary Dressing Covered/Secured with Dry Gauze & Dry Gauze & Roll Gauze, Roll Gauze, Secured with Secured with Tape Tape 55. Superior of L stump ulcer -Ulcer Cleansing Soap and Water -Foul Odor after Cleansing No -Other Dressing dakins -Primary Dressing Covered/Secured with Dry Gauze & Roll Gauze, Secured with Tape 54. L stump lateral -Ulcer Cleansing Soap and Water -Foul Odor after Cleansing No -Other Dressing iodofrom -Primary Dressing Covered/Secured with Dry Gauze & Roll Gauze, Secured with Tape 53-right plantar heel -Ulcer Cleansing Soap and Water Rinsed/ Irrigated with Saline -Foul Odor after Cleansing No No -Other Dressing dakins dakin's -Primary Dressing Covered/Secured with Dry Gauze & Dry Gauze & Roll Gauze Roll Gauze, Secured with Tape #35 L Stump -Ulcer Cleansing Soap and Water Wound Cleanser -Foul Odor after Cleansing No No -Other Dressing dakins dakin's -Primary Dressing Covered/Secured with Dry Gauze & Dry Gauze & Roll Gauze, Roll Gauze, Secured with Secured with Tape Tape Right -Compression Wrap Mateus Wrap Left -Compression Wrap Mateus Wrap WC - Visit Discharge Discharge Condition Stable Stable Ambulatory Status Wheelchair Wheelchair Transportation Private Auto Medication Reconcilliation completed & Yes provided to patient/care provider Clinical Summary of Care Provided Yes Facility Type Home Health Orders Sent Yes Assessment/Plan Assessment/Plan 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: CODE(S): L97.512 - Non-pressure chronic ulcer of other part of right foot with fat layer exposed (2) Delayed wound healing: CODE(S): T14.8XXD - Other injury of unspecified body region, subsequent encounter (3) Type 2 diabetes mellitus with diabetic polyneuropathy: CODE(S): E11.42 - Type 2 diabetes mellitus with diabetic polyneuropathy (4) Localized edema: CODE(S): R60.0 - Localized edema (5) Lymphedema: CODE(S): I89.0 - Lymphedema, not elsewhere classified (6) Osteomyelitis: CODE(S): M86.9 - Osteomyelitis, unspecified (7) Cellulitis of left lower limb: CODE(S): L03.116 - Cellulitis of left lower limb PLAN: I reviewed and discussed his case. His ulcer were debrided to right foot x 2 as noted. He was reassured no local signs of infection are seen on right lower extremity. Increased maceration noted. It is recognized he has not been able to shower due to lack of heat in parts of his home. Prior right foot xray was ordered. No gross concerning pathology or changes noted. Vessel calcification is noted. There is osseous deterioration of the distal second phalanx toe in which she is already been treated for infections at this site there is no corresponding ulcer at this location today. To change dressing daily with Aquacel ag to right foot ulcers. To wash the wound with antibacterial soap and water. I encourage routine showering at least once a week if possible. To follow up with surgeon for left lower extremity work up and intervention. It is noted he recently had left leg CT completed. To continue with right lower extremity surgical shoe. To continue with automated wheelchair. To take care to avoid pressure to his right heel ulcer site. To continue to optimize healing with improved glycemic index, continued weight reduction, and well-balanced whole food nutrients. To continue with edema management including his compression wraps and also lymphedema pumps. It is noted he has not been able to elevate as much this past week and has increased edema. Additional Mateus wrap was applied prior to Tubigrip application splint to help reduce stump edema. He was specifically advised apply the Mateus wrap to the forefoot to address his lymphedema at this level which is an ongoing issue. To reduce salt in diet; this was discussed. He has resumed Lasix and was advised to continue his advised by his primary care physician. To continue Lac-Hydrin application to dry skin on legs. It is noted that he completed course of advanced wound healing product application, epi fix. He was advised to return to clinic in 1 week or call sooner concerns or problems. Note: [employer] speech recognition retail sales vitamin consultant software was used to create portions of this document. Sound-alike and misspelled words, as well as other retail sales vitamin consultant errors may be contained in the documentation.
--- NOTE | 2021-05-29 16:16 | WC ---
TC RECEIVED FROM PT'S NURSE ZIGGY. STATES PT HAS NEW L MEDIAL STUMP WOUND. APPROX 1X1.5X0.7. DR CAMPBELL UPDATED W/ N.O'S GIVEN TO PACK W/ IODOFORM -SAME HIS OTHER WOUNDS. NOTIFY US IF ANY S/SX OF INFECTION, OR MORE CHANGES.
[2021-06-12 11:21] VITALS: BP 167/49; PULSE 44; RESP 17; TEMP 36.6
--- NOTE | 2021-06-12 13:15 | PN.PCM_ITS ---
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 He also has multiple right foot ulcers in which I am seeing him for today. He denies fever, chill, nausea, vomiting, redness, or odor. He had prior left below-knee amputation in the remote setting with Dr. Pompa. He denies any injuries or wounds to his right lower extremity. He has a new wound to his left posterior leg also. His home health bookkeeper assistant can help him take a shower up to two times a week but this has not been happening in full because it has been to cold in his bathroom for him to tolerate this activity. Progress of Wound: stable right but increased edema noted new left leg ulcer Objective Data Objective Data Vital Signs: Vital Signs Temp Pulse Resp BP 97.9 F 44 L 17 167/49 H 06/12/21 11:21 06/12/21 11:21 06/12/21 11:21 06/12/21 11:21 Physical Exam Extremity Extremity Narrative: No calf tenderness Diminished pulses Muscle wasting noted Left below-knee amputation and right hallux amputation Compartments remain soft to palpate bilateral lower extremities Skin Skin Narrative: no purulence, no streaking, no odor, no infection. Only serosanguineous drainage noted. Full epithelialization tissue to dorsal right foot, second toe, right posterior leg. no bogginess or fluctuance noted. The adjacent skin is hairless and atrophic. right heel ulcer and right subfifth metatarsal head ulcer with granular base and peripheral skin peeling without infection, necrosis, or deep tissue exposure; decreased size. Maceration returned and fissure to medial forefoot. left lower extremity dressing intact with multiple deep wounds probing to bone. new posterior left stump ulcer superficial with granular base. Neuro Neuro Narrative: lack of normal epicritic sensation via light touch is consistent with neuropathy status Debridement Note Debridement Note Wound debrided: Right heel and plantar lateral foot, left leg sites (multiple) Wound Grade/Stage: 1, 1, 3 Type of Debridement: Excisional debridement Anesthesia Used: 4% Lidocaine Solution Depth: in the subcutaneous layer Percentage of wound debrided: 100 Instrument Used: #15 blade Tissue Removed: fibrous, devitalized subcutaneous, biofilm, slough Severity: Fat Layer Exposed Amount of bleeding with debridement: Mild Bleeding Controlled with: Pressure Patient tolerated procedure: Patient tolerated procedure well Post-Debridement Measurements and Additional Note: Post-Debridement Measurements/Treatment XIMENA - Nurse 1 - General Ulcer Assessment Start: 05/22/21 11:58 Freq: Status: Active Protocol: SUSAN Activity Type Activity Date Activity User E-Sign Co-Sign Detail Recorded Client Recorded Date Recorded By Document 05/22/21 11:59 DL [id number] 05/22/21 12:09 DL Document 06/12/21 11:21 DL [id number] 06/12/21 11:41 DL 05/22/21 06/12/21 11:59 11:21 WC - Today's Visit Information Type of service Nurse-only Follow-up Visit Visit (Physician/CAR WORKER ) Arrival Mode Wheelchair Wheelchair Transfer Assistance None None Patient Identification Verified (Name & Yes Yes ) Patient Requires Transmission-Based No No Precautions Safety Precautions NA Finger Stick Blood Sugar(mg/dl) (if 158 indicated): Blood Sugar Stated by Patient Vital Signs Temperature (97.8 F-99.1 F) 97.7 F L 97.9 F Temperature Source Temporal Temporal Pulse Rate (60-100) 44 L Pulse Location Monitor Respiratory Rate (12-18) 18 17 Respiratory rate source Observation Blood Pressure (90/60-120/80) 167/49 H Blood Pressure Mean (mm Hg) 88 Source Monitor Position Sitting Blood Pressure Location Right Arm Comment Unable to obtain bp today History Since Last Visit- (Skip if this is Patient's initial visit) Have you changed medications since your No No last visit? Any new allergies or adverse reactions No No Had a fall/change in ADL's that may No No increase risk of falls Signs or symptoms of abuse and/or No No neglect since last visit Have you been in the hospital since your No No last visit? Has dressing in place as prescribed Yes Yes Has compression in place as prescribed Yes Yes Has offloadiing in place as prescribed Yes Yes Experienced any changes in pain level or No No management Left Footwear No Footwear Surgical Shoe with pressure relief insole Right Footwear Surgical Shoe No Footwear with pressure relief insole Pain Scale: 0-10 Numeric Is Patient Pain Free? Yes Yes XIMENA [place] Nurse 1 - General Ulcer Measurement Start: 05/22/21 11:58 Freq: Status: Active Protocol: Activity Type Activity Date Activity User E-Sign Co-Sign Detail Recorded Client Recorded Date Recorded By Document 06/12/21 11:21 VIDA [id number] 06/12/21 11:41 VIDA 06/12/21 11:21 Wound Center Nurse 1 56. R plantar lateral foot -Current Size (cm) - Length 0.2 -Current Size (cm) - Width 0.2 -Current Size (cm) - Depth 0.1 -Total Square Cm 0.04 -Photo Taken No -Exudate Amt Small -Exudate Type Serosanguineous -Wound Margin Distinct, Outline Attached -Granulation Amt Small (1-33%) -Granulation Quality [place] -Necrosis Amt Small (1-33%) -Necrotic Tissue Type Adherent Slough -Structure Exposed N/A -Texture (Susy-wound Skin Appearance) Scarring -Moisture (Susy-wound Skin Appearance) Dry/Scaly -Color (Susy-wound Skin Appearance) Hemosiderin Staining -Temperature (Susy-wound Skin No Abnormality Appearance) (Pt Warm) -Tenderness on Palpation (Susy-wound No Skin Appearance) -Ulcer Cleansing Soap and Water -Foul Odor after Cleansing No -Anesthetic Used 4% Lidocaine Solution 55. Superior of L stump ulcer -Current Size (cm) - Length 2 -Current Size (cm) - Width 1.3 -Current Size (cm) - Depth 1.4 -Total Square Cm 2.6 -Photo Taken No -Exudate Amt Medium -Exudate Type Serous -Wound Margin Distinct, Outline Attached -Granulation Amt None Present (0 %) -Necrosis Amt Large (67-100%) -Necrotic Tissue Type Adherent Slough -Structure Exposed N/A -Texture (Susy-wound Skin Appearance) Scarring -Moisture (Susy-wound Skin Appearance) Maceration -Color (Susy-wound Skin Appearance) Hemosiderin Staining -Temperature (Susy-wound Skin No Abnormality Appearance) (Pt Warm) -Ulcer Cleansing Soap and Water -Foul Odor after Cleansing No -Anesthetic Used 4% Lidocaine Solution 54. L stump lateral -Current Size (cm) - Length 1.1 -Current Size (cm) - Width 1 -Current Size (cm) - Depth 0.9 -Total Square Cm 1.1 -Photo Taken No -Exudate Amt Medium -Exudate Type Serosanguineous -Granulation Amt None Present (0 %) -Necrosis Amt Large (67-100%) -Necrotic Tissue Type Adherent Slough -Structure Exposed N/A -Texture (Susy-wound Skin Appearance) Scarring -Moisture (Susy-wound Skin Appearance) Maceration -Color (Susy-wound Skin Appearance) Hemosiderin Staining -Temperature (Susy-wound Skin No Abnormality Appearance) (Pt Warm) -Tenderness on Palpation (Susy-wound No Skin Appearance) -Ulcer Cleansing Soap and Water -Foul Odor after Cleansing No -Anesthetic Used 4% Lidocaine Solution 53-right plantar heel -Current Size (cm) - Length 3.5 -Current Size (cm) - Width 3 -Current Size (cm) - Depth 0.1 -Total Square Cm 10.5 -Photo Taken No -Exudate Amt Medium -Exudate Type Serosanguineous -Wound Margin Thickened -Granulation Amt Medium (34-66%) -Granulation Quality Red -Necrosis Amt Medium (34-66%) -Necrotic Tissue Type Adherent Slough -Texture (Susy-wound Skin Appearance) Scarring -Moisture (Susy-wound Skin Appearance) Dry/Scaly -Color (Susy-wound Skin Appearance) Hemosiderin Staining -Temperature (Susy-wound Skin No Abnormality Appearance) (Pt Warm) -Tenderness on Palpation (Susy-wound No Skin Appearance) -Ulcer Cleansing Soap and Water -Foul Odor after Cleansing No -Anesthetic Used 4% Lidocaine Solution #35 L Stump -Current Size (cm) - Length 2 -Current Size (cm) - Width 2 -Current Size (cm) - Depth 0.6 -Total Square Cm 4 -Photo Taken No -Exudate Amt Medium -Exudate Type Serosanguineous -Wound Margin Thickened -Granulation Amt None Present (0 %) -Necrosis Amt Large (67-100%) -Necrotic Tissue Type Adherent Slough -Structure Exposed N/A -Texture (Susy-wound Skin Appearance) Scarring -Moisture (Susy-wound Skin Appearance) Maceration -Color (Susy-wound Skin Appearance) Hemosiderin Staining -Temperature (Susy-wound Skin No Abnormality Appearance) (Pt Warm) -Tenderness on Palpation (Susy-wound No Skin Appearance) -Ulcer Cleansing Soap and Water -Foul Odor after Cleansing No -Anesthetic Used 4% Lidocaine Solution WC - Nurse 2 - General Ulcer CM Notes Start: 05/22/21 11:58 Freq: Status: Active Protocol: Activity Type Activity Date Activity User E-Sign Co-Sign Detail Recorded Client Recorded Date Recorded By Document 05/22/21 12:12 NORRIS [id number] 05/22/21 12:20 JF Edit Result 05/22/21 12:12 NORRIS (1) [id number] 05/23/21 07:00 PL Document 06/12/21 11:46 NORRIS [id number] 06/12/21 11:56 NORRIS (1) 53-right plantar heel - Type of Offloading Total Contact Cast => (TCC) - Right ($) => 05/22/21 06/12/21 12:12 11:46 Wound Center Nurse 2 57-left medial stump -Time 11:54 -Correct Patient Yes -Correct Side, Site, Position Yes -Correct Procedure Yes -Procedure Performed Yes -Type of Procedure Debridement -Clinical Debridement Subcutaneous -Tissue Removed Subcutaneous -Post Debridement (cm) - Length 1.8 -Post Debridement (cm) - Width 3.0 -Post Debridement (cm) - Depth 0.1 -Total Square (Post) (cm) 5.40 -Area of Debridement (cm) - Length 1.8 -Area of Debridement (cm) - Width 3.0 -Total Square (Area) (cm) 5.40 -Tunneling No -Undermining/Tunneling No -Circular Undermining No -Wound/Ulcer Outcome Not Healed -Ulcer Cleansing Rinsed/ Irrigated with Saline -Foul Odor after Cleansing No -Bioengineered Tissue No -Bleeding Controlled with Pressure -Treatment Response Procedure Tolerated Well -Offloading No -Debridement - Subq, 1st 20sq cm No 56. R plantar lateral foot -Time 12:13 11:48 -Correct Patient Yes Yes -Correct Side, Site, Position Yes Yes -Correct Procedure Yes Yes -Procedure Performed Yes Yes -Type of Procedure Debridement Debridement -Clinical Debridement Subcutaneous Subcutaneous -Tissue Removed Subcutaneous Subcutaneous -Post Debridement (cm) - Length 1.8 0.3 -Post Debridement (cm) - Width 1.0 0.2 -Post Debridement (cm) - Depth 0.2 0.1 -Total Square (Post) (cm) 1.80 0.06 -Area of Debridement (cm) - Length 1.8 0.3 -Area of Debridement (cm) - Width 1.0 0.2 -Total Square (Area) (cm) 1.80 0.06 -Tunneling No No -Undermining/Tunneling No No -Circular Undermining No No -Wound/Ulcer Outcome Not Healed Not Healed -Ulcer Cleansing Rinsed/ Rinsed/ Irrigated with Irrigated with Saline Saline -Foul Odor after Cleansing No No -Bioengineered Tissue No No -Bleeding Controlled with Pressure Pressure -Treatment Response Procedure Procedure Tolerated Well Tolerated Well -Offloading Yes Yes -Type of Offloading Surgical Shoe Surgical Shoe -Debridement - Subq, 1st 20sq cm Yes No 55. Superior of L stump ulcer -Time 11:49 -Correct Patient No Yes -Correct Side, Site, Position No Yes -Correct Procedure No Yes -Procedure Performed No Yes -Type of Procedure Debridement -Clinical Debridement Subcutaneous -Tissue Removed Subcutaneous -Post Debridement (cm) - Length 2.0 -Post Debridement (cm) - Width 1.4 -Post Debridement (cm) - Depth 1.4 -Total Square (Post) (cm) 2.80 -Area of Debridement (cm) - Length 2 -Area of Debridement (cm) - Width 1.4 -Total Square (Area) (cm) 2.8 -Tunneling No -Undermining/Tunneling No -Circular Undermining No -Wound/Ulcer Outcome Not Healed Not Healed -Ulcer Cleansing Rinsed/ Irrigated with Saline -Foul Odor after Cleansing No -Bioengineered Tissue No -Bleeding Controlled with Pressure -Treatment Response Procedure Tolerated Well -Offloading No -Debridement - Subq, 1st 20sq cm No 54. L stump lateral -Time 11:50 -Correct Patient No Yes -Correct Side, Site, Position No Yes -Correct Procedure No Yes -Procedure Performed No Yes -Type of Procedure Debridement -Clinical Debridement Subcutaneous -Tissue Removed Subcutaneous -Post Debridement (cm) - Length 1.1 -Post Debridement (cm) - Width 1.1 -Post Debridement (cm) - Depth 1 -Total Square (Post) (cm) 1.21 -Area of Debridement (cm) - Length 1.1 -Area of Debridement (cm) - Width 1.1 -Total Square (Area) (cm) 1.21 -Tunneling No -Undermining/Tunneling No -Circular Undermining No -Wound/Ulcer Outcome Not Healed Not Healed -Ulcer Cleansing Rinsed/ Irrigated with Saline -Foul Odor after Cleansing No -Bioengineered Tissue No -Bleeding Controlled with Pressure -Treatment Response Procedure Tolerated Well -Offloading No -Debridement - Subq, 1st 20sq cm No 53-right plantar heel -Time 12:14 11:50 -Correct Patient Yes Yes -Correct Side, Site, Position Yes Yes -Correct Procedure Yes Yes -Procedure Performed Yes Yes -Type of Procedure Debridement Debridement -Clinical Debridement Subcutaneous Subcutaneous -Tissue Removed Subcutaneous Subcutaneous -Post Debridement (cm) - Length 4.0 3.5 -Post Debridement (cm) - Width 3.2 3.1 -Post Debridement (cm) - Depth 0.2 0.2 -Total Square (Post) (cm) 12.80 10.85 -Area of Debridement (cm) - Length 4.0 3.5 -Area of Debridement (cm) - Width 3.2 3.1 -Total Square (Area) (cm) 12.80 10.85 -Tunneling No No -Undermining/Tunneling No No -Circular Undermining No No -Wound/Ulcer Outcome Not Healed Not Healed -Ulcer Cleansing Rinsed/ Rinsed/ Irrigated with Irrigated with Saline Saline -Foul Odor after Cleansing No No -Bioengineered Tissue No No -Bleeding Controlled with Pressure Pressure -Treatment Response Procedure Procedure Tolerated Well Tolerated Well -Offloading No Yes -Type of Offloading Surgical Shoe -Debridement - Subq, 1st 20sq cm No Yes -Debridement, SubQ, ea addt'l 20sq cm 1 or part thereof #35 L Stump -Time 11:51 -Correct Patient No Yes -Correct Side, Site, Position No Yes -Correct Procedure No Yes -Procedure Performed No Yes -Type of Procedure Debridement -Clinical Debridement Subcutaneous -Tissue Removed Dermis -Post Debridement (cm) - Length 2.1 -Post Debridement (cm) - Width 2 -Post Debridement (cm) - Depth 0.6 -Total Square (Post) (cm) 4.2 -Area of Debridement (cm) - Length 2.1 -Area of Debridement (cm) - Width 2.0 -Total Square (Area) (cm) 4.20 -Tunneling No -Undermining/Tunneling No -Circular Undermining No -Wound/Ulcer Outcome Not Healed Not Healed -Ulcer Cleansing Rinsed/ Irrigated with Saline -Foul Odor after Cleansing No -Bioengineered Tissue No -Bleeding Controlled with Pressure -Treatment Response Procedure Tolerated Well -Offloading No -Debridement - Subq, 1st 20sq cm No Pain Scale: 0-10 Numeric Is Patient Pain Free? Yes Yes WC - Nurse 3 - General Ulcer D/C NN Start: 05/22/21 11:58 Freq: Status: Active Protocol: Activity Type Activity Date Activity User E-Sign Co-Sign Detail Recorded Client Recorded Date Recorded By Document 05/22/21 11:59 DL [id number] 05/22/21 12:09 DL Document 05/22/21 12:21 JF [id number] 05/22/21 12:22 JF Document 06/12/21 12:12 DL [id number] 06/12/21 12:16 DL 05/22/21 05/22/21 06/12/21 11:59 12:21 12:12 Vital Signs Temperature (97.8 F-99.1 F) 97.7 F L Temperature Source Temporal Respiratory Rate (12-18) 18 Comment Unable to obtain bp today Pain Scale: 0-10 Numeric Is Patient Pain Free? Yes Yes Yes Wound Care Nurse 3 57-left medial stump -Ulcer Cleansing Soap and Water -Foul Odor after Cleansing No -Other Dressing dakins -Primary Dressing Covered/Secured with Dry Gauze & Roll Gauze, Secured with Tape 56. R plantar lateral foot -Ulcer Cleansing Soap and Water Rinsed/ Soap and Water Irrigated with Saline -Foul Odor after Cleansing No No No -Other Dressing Dakins austin's dakins -Primary Dressing Covered/Secured with Dry Gauze & Dry Gauze & Dry Gauze & Roll Gauze, Roll Gauze, Roll Gauze, Secured with Secured with Secured with Tape Tape Tape 55. Superior of L stump ulcer -Ulcer Cleansing Soap and Water Soap and Water -Foul Odor after Cleansing No No -Other Dressing dakins dakins -Primary Dressing Covered/Secured with Dry Gauze & Dry Gauze & Roll Gauze, Roll Gauze, Secured with Secured with Tape Tape 54. L stump lateral -Ulcer Cleansing Soap and Water Not Cleansed -Foul Odor after Cleansing No No -Other Dressing iodofrom iodoform packing -Primary Dressing Covered/Secured with Dry Gauze & Dry Gauze & Roll Gauze, Roll Gauze, Secured with Secured with Tape Tape 53-right plantar heel -Ulcer Cleansing Soap and Water Rinsed/ Soap and Water Irrigated with Saline -Foul Odor after Cleansing No No No -Other Dressing dakins austin's dakins -Primary Dressing Covered/Secured with Dry Gauze & Dry Gauze & Dry Gauze & Roll Gauze Roll Gauze, Roll Gauze, Secured with Secured with Tape Tape #35 L Stump -Ulcer Cleansing Soap and Water Wound Cleanser Soap and Water -Foul Odor after Cleansing No No No -Other Dressing dakins austin's dakins -Primary Dressing Covered/Secured with Dry Gauze & Dry Gauze & Dry Gauze & Roll Gauze, Roll Gauze, Roll Gauze, Secured with Secured with Secured with Tape Tape Tape Right -Compression Wrap Mateus Wrap -Other tubigrip sngle, circades Left -Compression Wrap [place] Wrap Treatment Response Procedure Tolerated Well WC - Visit Discharge Discharge Condition Stable Stable Stable Ambulatory Status Wheelchair Wheelchair Wheelchair Transportation Private Auto Private Auto Medication Reconcilliation completed & Yes provided to patient/care provider Clinical Summary of Care Provided Yes Facility Type Home Health Home Health Orders Sent Yes Yes Assessment/Plan Assessment/Plan 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: CODE(S): L97.512 - Non-pressure chronic ulcer of other part of right foot with fat layer exposed (2) Delayed wound healing: CODE(S): T14.8XXD - Other injury of unspecified body region, subsequent encounter (3) Type 2 diabetes mellitus with diabetic polyneuropathy: CODE(S): E11.42 - Type 2 diabetes mellitus with diabetic polyneuropathy (4) Localized edema: CODE(S): R60.0 - Localized edema (5) Lymphedema: CODE(S): I89.0 - Lymphedema, not elsewhere classified (6) Osteomyelitis: CODE(S): M86.9 - Osteomyelitis, unspecified (7) Ulcer of left lower extremity with fat layer exposed: CODE(S): L97.922 - Non-pressure chronic ulcer of unspecified part of left lower leg with fat layer exposed PLAN: I reviewed and discussed his case. His ulcer were debrided to right foot x 2 as noted. He was reassured no local signs of infection are seen on right lower extremity. Encouraged to shower when able. Skin peeling and lichenified debris has been removed today as tolerated to right foot and leg. Prior right foot xray was ordered. No gross concerning pathology or changes noted. Vessel calcification is noted. There is osseous deterioration of the distal second phalanx toe in which she is already been treated for infections at this site there is no corresponding ulcer at this location today. To change dressing daily with Aquacel ag to right foot ulcers. To wash the wound with antibacterial soap and water. I encourage routine showering at least once a week if possible. To continue with dakin wet to dry left leg and ok to put aquacel ag to posterior new left leg ulcer site. To follow up with surgeon for left lower extremity work up and intervention. It is noted he recently had left leg CT completed. To continue with right lower extremity surgical shoe. To continue with automated wheelchair. To take care to avoid pressure to his right heel ulcer site. To continue to optimize healing with improved glycemic index, continued weight reduction, and well-balanced whole food nutrients. To continue with edema management including his compression wraps and also lymphedema pumps. It is noted he has not been able to elevate as much this past week and has increased edema. Additional Mateus wrap was applied prior to Tubigrip application splint to help reduce stump edema. He was specifically advised apply the Mateus wrap to the forefoot to address his lymphedema at this level which is an ongoing issue. To reduce salt in diet; this was discussed. He has resumed Lasix and was advised to continue his advised by his primary care physician. To continue Lac-Hydrin application to dry skin on legs. It is noted that he completed course of advanced wound healing product application, epi fix. He was advised to return to clinic in 1 week or call sooner concerns or problems. Note: [employer] speech recognition [employer] supervisor software was used to create portions of this document. Sound-alike and misspelled words, as well as other [employer] supervisor errors may be contained in the documentation. 21 minutes was spent on this encounter. This included face to face and non face to face care including preparing for the visit, reviewing the history, performing the exam, counseling and providing education to the patient, family, or caregiver, ordering medications/test/ procedures if indicated as documented, communicating with other healthcare providers, documenting information in the medical record, interpreting / sharing this information when indicated as documented, and care coordination
== END 2021-06-13 23:59 | disposition home or self-care (01) ==
LOC: WC 11:15
PROVIDERS: PCP Family Medicine; Referring Provider Podiatrist; Visit Provider Podiatrist
DX: E11.621 Type 2 diabetes mellitus with foot ulcer (principal); T87.89 Other complications of amputation stump; L97.512 Non-pressure chronic ulcer of other part of right foot with fat layer exposed; L97.412 Non-pressure chronic ulcer of right heel and midfoot with fat layer exposed; L97.822 Non-pressure chronic ulcer of other part of left lower leg with fat layer exposed; E11.42 Type 2 diabetes mellitus with diabetic polyneuropathy; I89.0 Lymphedema, not elsewhere classified; R60.0 Localized edema; L03.116 Cellulitis of left lower limb; Y83.5 Amputation of limb(s) as the cause of abnormal reaction of the patient, or of later complication, without mention of misadventure at the time of the procedure
CPT/HCPCS: 11042; 11045; 29445; 73700